=== PATIENT | female | born 1955 | race Hispanic/Latino ===

== ENCOUNTER 2018-09-16 18:35 | Emergency (ER) | payer OTHER ==
[2018-09-16] MEDS ORDERED: ONDANSETRON 4 MG/2 ML VIAL ONE (19:10)
[2018-09-16] MEDS ORDERED: MORPHINE 4 MG/ML SYR ONE ×2 (19:10→23:20)
[2018-09-16] MEDS ORDERED: NA CHLORIDE 0.9% 1,000 ML ONE (20:21)
--- NOTE | 2018-09-16 20:22 | RAD REPORT ---
EXAM DESCRIPTION: RAD - Pelvis - 09/16/2018 7:51 pm CLINICAL HISTORY: Acute onset right hip pain, history of left femoral neck fracture repair unknown d ate COMPARISON: None. TECHNIQUE: AP imaging of the pelvis was obtained. FINDINGS: No fracture of the bony pelvis. No pathologic bony pelvic process seen. Pubic symphysis un remarkable. Minimal SI joint degenerative changes. Hardware is in place from prior femoral neck fracture repair. Faint lucency is present along the supe rior margin of the left femoral neck. Baseline for the patient is unknown. Acute fracture is unlikely . Transverse fracture through the mid right femoral neck is present. The medial inferior margin of the fracture is at the superior boundary of the lesser trochanter. No extension into the intertrochanteri c portion of the femur seen. No pathologic component. IMPRESSION: Right femoral neck fracture as detailed.
--- NOTE | 2018-09-16 20:23 | RAD REPORT ---
EXAM DESCRIPTION: RAD - Femur Right - 09/16/2018 7:51 pm CLINICAL HISTORY: Acute onset right hip and leg pain COMPARISON: No remote imaging FINDINGS: Fracture is present in the midportion of the right femoral neck. Medial inferior margin of the fracture is at the superior margin of the lesser trochanter. No extension into the intertrochant [place] portion of the femur. Femoral head maintains smooth rounded contour and is normally positioned i n the acetabulum. Remainder the femur shows no acute finding. No joint effusion at the knee. No air o r foreign body in the soft tissues. IMPRESSION: Right femoral neck fracture as detailed. Remainder the femur without acute finding.
[2018-09-16 21:07] LABS: Urine Blood TRACE (NEG); Urine Glucose NEGATIVE (NEG); Urine Protein TRACE (NEG)
[2018-09-16 21:27] LABS: Absolute Lymphocytes (CBC) 0.9 K/uL (0.7-4.9); Absolute Monocytes 0.6 K/uL (0.1-1.3); Absolute Neutrophil 15.4 K/uL (1.8-8.0); Basophils % 0.4 % (0-1.3); Hematocrit 35.4 % (36.0-45.0); Lymphocytes % 5.3 % (15.3-44.8); MCH 31.3 pg (27.0-35.0); MCV 92.3 fL (80-100); MPV 7.8 fL (7.6-11.3); Monocytes % 3.7 % (3.3-12.3); RBC Red Blood Cell Count 3.83 M/uL (3.86-4.86)
[2018-09-16 21:34] LABS: Protime INR 0.95
[2018-09-16 21:43] LABS: Potassium 4.5 mmol/L (3.5-5.1)
--- NOTE | 2018-09-16 22:06 | ER ---
Nurse's Notes [facility] Name: Juhi Aguilar Age: 63 yrs Sex: Female : 1955 Arrival Date: 09/16/2018 Time: 18:36 Bed 17 Private MD: Diagnosis: Right Femoral Neck Fracture Presentation: 09/16 18:38 Risk Assessment: Do you want to hurt yourself or someone else? Patient reports no rv desire to harm self or others. Initial Sepsis Screen: Does the patient meet any 2 criteria? No. Patient's initial sepsis screen is negative. Does the patient have a suspected source of infection? No. Patient's initial sepsis screen is negative. Care prior to arrival: None. 18:51 Presenting complaint: EMS states: Was attempting to get in bed and experienced severe R ph hip pain that radiates to knee, denies recent fall or injury, reports hx of R hip pain. Transition of care: patient was not received from another setting of care. Onset of symptoms was September 16, 2018. 18:51 Method Of Arrival: EMS: [facility] 18:51 Acuity: LUIGI 3 ph Historical: - Allergies: 18:53 sirolimus; ph - Home Meds: 19:10 bisacodyl 5 mg Oral TbEC 1 tab once daily [Active]; calcitriol 0.25 mcg oral cap 1 cap lp1 once daily [Active]; cyclobenzaprine 10 mg Oral tab 1 tab 3 times per day [Active]; cyclosporine ophthalmic ophthalmic 1 drop 2 times per day [Active]; cyclosporine 25 mg Oral cap 3 cap twice a day [Active]; enoxaparin 40 mg/0.4 mL subcutaneous syrg 0.4 mL once daily [Active]; famotidine 20 mg Oral tab 1 tab 2 times per day [Active]; furosemide 40 mg Oral tab 1 tab 2 times per day [Active]; glipizide 5 mg Oral tab 1 tab once daily [Active]; hydrocodone-acetaminophen 5-325 mg Oral tab 2 tabs every 8 hours [Active]; meloxicam 7.5 mg oral tab 1 tab once daily [Active]; metoprolol succinate 50 mg oral Tb24 twice a day [Active]; mycophenolate sodium 360 mg oral TbEC 2 tabs 2 times per day [Active]; omeprazole 20 mg Oral cpDR 1 cap once daily [Active]; pravastatin 10 mg oral tab nightly [Active]; spironolactone 25 mg Oral tab 1 tab once daily [Active]; sulindac 150 mg Oral tab 1 tab 2 times per day [Active]; tramadol 50 mg Oral tab 1 tab every 6 hours [Active]; - PMHx: 19:10 Osteoarthritis; hyperparathyroidism; GERD; Hyperlipidemia; Hypertension; Cataracts; lp1 Myalgia; - PSHx: 19:10 Renal transplant; Femoral neck fx; lp1 - Immunization history:: Adult Immunizations unknown. - Social history:: Smoking status: Patient/guardian denies using tobacco. - Ebola Screening: : Patient negative for fever greater than or equal to 101.5 degrees Fahrenheit, and additional compatible Ebola Virus Disease symptoms Patient denies exposure to infectious person Patient denies travel to an Ebola-affected area in the 21 days before illness onset. Screenin:38 Abuse screen: Denies threats or abuse. Denies injuries from another. Nutritional rv screening: No deficits noted. Tuberculosis screening: No symptoms or risk factors identified. Fall Risk None identified. Assessment: 18:37 General: Appears in no apparent distress. uncomfortable, Behavior is calm, cooperative. rv Pain: Complains of pain in HIP. Neuro: Level of Consciousness is awake, alert, obeys commands, Oriented to person, place, time, situation. Cardiovascular: Capillary refill < 3 seconds. Respiratory: Airway is patent. GI: No signs and/or symptoms were reported involving the gastrointestinal system. : No signs and/or symptoms were reported regarding the genitourinary system. EENT: No signs and/or symptoms were reported regarding the EENT system. Derm: Skin is intact. 19:15 General: Appears in no apparent distress. uncomfortable, Behavior is calm, cooperative. rr5 Pain: Complains of pain in hip radiating to right hip Pain radiates to right leg Pain currently is 6 out of 10 on a pain scale. Quality of pain is described as aching. Neuro: Level of Consciousness is Oriented to person, place, time, situation. Cardiovascular: Capillary refill < 3 seconds Patient's skin is warm and dry. Respiratory: Airway is patent. GI: No signs and/or symptoms were reported involving the gastrointestinal system. : No signs and/or symptoms were reported regarding the genitourinary system. EENT: No signs and/or symptoms were reported regarding the EENT system. Derm: Skin is intact. Musculoskeletal: Capillary refill < 3 seconds, Range of motion: limited in right hip. 19:20 Reassessment: patient taken to radiology. rr5 19:55 Reassessment: came back from radiology department. rr5 21:00 Reassessment: Patient appears in no apparent distress at this time. aj1 22:41 Reassessment: call made to [facility] and accepted the case by staff nurse ashley . rr5 23:33 Reassessment: transferred to other facility via EMS, handover given. lp1 Vital Signs: 18:36 BP 169 / 100; Pulse 80; Resp 17; Temp 98.8; Pulse Ox 99% on R/A; Weight 63.5 kg (R); rv 19:15 BP 187 / 92; Pulse 87; Resp 17; Temp 98.6; Pulse Ox 98% on R/A; rr5 22:20 BP 158 / 95; Pulse 87; Resp 17; Pulse Ox 99% on R/A; rr5 23:15 BP 152 / 89; Pulse 89; Resp 17; Pulse Ox 98% ; lp1 ED Course: 18:36 Patient arrived in ED. rv 18:38 Arm band placed on right wrist. rv 18:39 Patient has correct armband on for positive identification. Bed in low position. Call rv light in reach. Side rails up X2. Adult w/ patient. Pulse ox on. NIBP on. 18:52 Triage completed. ph 18:54 Wali Caba MD is Attending Physician. salomón 18:54 [facility]su [facility]. cp 19:01 Report given to ZORAIDA/SATURNINO SCHROEDER. rv 19:10 Maintain EMS IV. Dressing intact. Site clean \T\ dry. Gauge \T\ site: 18 right antecubital. rr 5 IV Flushed right with 5 ml normal saline. 19:44 Wayne Salas, RN is Primary Nurse. rr5 19:52 XRAY Pelvis In Process Unspecified. EDMS 19:52 Femur Right XRAY In Process Unspecified. EDMS 20:55 Mcneill cath inserted, using sterile technique, 16 Fr., by me, balloon inflated, urine rr5 specimen collected. returned clear yellow urine. Patient tolerated well. 21:33 Ptt, Activated Sent. ds4 21:33 PT-INR Sent. ds4 21:33 BMP Sent. ds4 21:33 CBC Smear Scan Sent. ds4 21:34 EKG done, by ED staff, reviewed by Wali Caba MD. ds4 23:30 No provider procedures requiring assistance completed. rr5 23:30 Patient transferred, IV remains in place. intact. rr5 Administered Medications: 19:55 Drug: Zofran 4 mg Route: IVP; Site: right antecubital; rr5 23:30 Follow up: Response: No adverse reaction rr5 20:00 Drug: morphine 4 mg Route: IVP; Site: right antecubital; rr5 23:30 Follow up: Response: No adverse reaction rr5 21:00 Drug: NS 0.9% 1000 ml Route: IV; Rate: 75 ml/hr; Site: right antecubital; rr5 22:47 Follow up: IV Status: Infusion continued upon transfer; IV Intake: 200ml aj1 22:45 Not Given (bp 158/95 -Page PA informed): hydrALAZINE 5 mg IV at calculated rate once aj1 23:19 Drug: morphine 4 mg Route: IVP; Site: right antecubital; lp1 23:31 Follow up: Response: No adverse reaction; Other; given upon transfer lp1 Intake: 22:47 IV: 200ml; Total: 200ml. aj1 Outcome: 22:05 ER care complete, transfer ordered by . toni 23:29 Patient left the ED. jb4 23:34 Transferred by ground EMS to [facility], Transfer form lp1 completed. 23:34 Condition: stable 23:34 Discharge instructions given to patient, family, Instructed on discharge instructions, follow up and referral plans. the need for transfer, Demonstrated understanding of instructions, follow-up care. Signatures: Dispatcher [employer] EDMS Hailey Izaguirre RN RN aj1 Wali Caba MD MD cha Pena, Laura RN RN lp1 Gadiel Gonzalez ds4 Kelli Thomas RN RN ph Page, Corey, PA PA cp Bryson, James, RN RN jb4 Junior Lorenzo RN RN rv Roque, Raymond RN RN rr5 Corrections: (The following items were deleted from the chart) 20:07 19:57 Reassessment: patient taken to radiology rr5 rr5 20:07 20:05 Reassessment: came back from radiology department. rr5 rr5
--- NOTE | 2018-09-16 22:06 | EDPHYS ---
Physician Documentation [facility] Name: Juhi Aguilar Age: 63 yrs Sex: Female : 1955 Arrival Date: 09/16/2018 Time: 18:36 Bed 17 Private MD: ED Physician Wali Caba HPI: 09/16 19:18 This 63 yrs old Female presents to ER via EMS with complaints of right hip cp pain. 19:18 The patient or guardian reports pain. sustained from lost balance without falling while cp using walker There is no obvious deformity, The patient is able to ambulate with assistance. Patient is not able to bear weight. The patient's discomfort radiates to the down leg to knee. The complaints affect the right hip. Onset: The symptoms/episode began/occurred today. Associated signs and symptoms: Pertinent negatives: abdominal pain, chest pain, diarrhea, dysuria, weakness, numbness. Historical: - Allergies: 18:53 sirolimus; ph - Home Meds: 19:10 bisacodyl 5 mg Oral TbEC 1 tab once daily [Active]; calcitriol 0.25 mcg oral cap 1 cap lp1 once daily [Active]; cyclobenzaprine 10 mg Oral tab 1 tab 3 times per day [Active]; cyclosporine ophthalmic ophthalmic 1 drop 2 times per day [Active]; cyclosporine 25 mg Oral cap 3 cap twice a day [Active]; enoxaparin 40 mg/0.4 mL subcutaneous syrg 0.4 mL once daily [Active]; famotidine 20 mg Oral tab 1 tab 2 times per day [Active]; furosemide 40 mg Oral tab 1 tab 2 times per day [Active]; glipizide 5 mg Oral tab 1 tab once daily [Active]; hydrocodone-acetaminophen 5-325 mg Oral tab 2 tabs every 8 hours [Active]; meloxicam 7.5 mg oral tab 1 tab once daily [Active]; metoprolol succinate 50 mg oral Tb24 twice a day [Active]; mycophenolate sodium 360 mg oral TbEC 2 tabs 2 times per day [Active]; omeprazole 20 mg Oral cpDR 1 cap once daily [Active]; pravastatin 10 mg oral tab nightly [Active]; spironolactone 25 mg Oral tab 1 tab once daily [Active]; sulindac 150 mg Oral tab 1 tab 2 times per day [Active]; tramadol 50 mg Oral tab 1 tab every 6 hours [Active]; - PMHx: 19:10 Osteoarthritis; hyperparathyroidism; GERD; Hyperlipidemia; Hypertension; Cataracts; lp1 Myalgia; - PSHx: 19:10 Renal transplant; Femoral neck fx; lp1 - Immunization history:: Adult Immunizations unknown. - Social history:: Smoking status: Patient/guardian denies using tobacco. - Ebola Screening: : Patient negative for fever greater than or equal to 101.5 degrees Fahrenheit, and additional compatible Ebola Virus Disease symptoms Patient denies exposure to infectious person Patient denies travel to an Ebola-affected area in the 21 days before illness onset. ROS: 19:25 Constitutional: Negative for body aches, chills, fever, poor PO intake. cp 19:25 Eyes: Negative for injury, pain, redness, and discharge. cp 19:25 ENT: Negative for drainage from ear(s), ear pain, sore throat, difficulty swallowing, difficulty handling secretions. 19:25 Cardiovascular: Negative for chest pain, edema, palpitations. 19:25 Respiratory: Negative for cough, shortness of breath, wheezing. 19:25 Abdomen/GI: Negative for abdominal pain, vomiting, diarrhea, constipation, black/tarry stool, rectal bleeding. 19:25 Back: Positive for radiated pain, of the right lower back. 19:25 : Negative for urinary symptoms. 19:25 MS/extremity: Positive for decreased range of motion, pain, tenderness, of the right hip. 19:25 Neuro: Negative for altered mental status, dizziness, loss of consciousness, syncope, near syncope, weakness. 19:25 All other systems are negative. Exam: 19:25 Head/Face: Normocephalic, atraumatic. cp 19:25 Constitutional: The patient appears in no acute distress, alert, awake, non-diaphoretic, non-toxic, well developed, well nourished, uncomfortable. 19:25 Eyes: Periorbital structures: appear normal, Conjunctiva: normal, no exudate, no injection, Sclera: no appreciated abnormality, Lids and lashes: appear normal, bilaterally. 19:25 ENT: External ear(s): are unremarkable, Ear canal(s): are normal, clear, TM's: are normal, no evidence of bulging, no erythema, Nose: is normal, Mouth: Lips: moist, Oral mucosa: moist, Posterior pharynx: is normal, airway is patent, no erythema, no exudate. 19:25 Neck: C-spine: vertebral tenderness, is not appreciated, crepitus, is not appreciated, ROM/movement: is normal, is supple, without pain, no range of motions limitations, no meningismus, no nuchal rigidity. 19:25 Chest/axilla: Inspection: normal, Palpation: is normal, no crepitus, no tenderness. 19:25 Cardiovascular: Rate: normal, Rhythm: regular, Pulses: Pulses are 2+ in right radial artery, right dorsalis pedis artery, left radial artery and left dorsalis pedis artery. Edema: is not appreciated, JVD: is not appreciated. 19:25 Respiratory: the patient does not display signs of respiratory distress, Respirations: normal, no use of accessory muscles, no retractions, no splinting, no tachypnea, labored breathing, is not present, Breath sounds: are clear throughout, no decreased breath sounds, no stridor, no wheezing. 19:25 Abdomen/GI: Inspection: obese Bowel sounds: active, all quadrants, Palpation: abdomen is soft and non-tender, in all quadrants, rebound tenderness, is not appreciated, involuntary guarding, is not appreciated. 19:25 Back: pain, that is moderate, of the right low back, vertebral tenderness, is not appreciated. 19:25 Musculoskeletal/extremity: Joints: All joints are normal except the right hip displays limited range of motion, pain at rest, painful range of motion, tenderness. 19:25 Neuro: Orientation: to person, place \T\ time. Mentation: lucid, able to follow commands, Cerebellar function: is grossly normal, Motor: moves all fours, strength is normal, Sensation: no obvious gross deficits. Vital Signs: 18:36 BP 169 / 100; Pulse 80; Resp 17; Temp 98.8; Pulse Ox 99% on R/A; Weight 63.5 kg (R); rv 19:15 BP 187 / 92; Pulse 87; Resp 17; Temp 98.6; Pulse Ox 98% on R/A; rr5 22:20 BP 158 / 95; Pulse 87; Resp 17; Pulse Ox 99% on R/A; rr5 23:15 BP 152 / 89; Pulse 89; Resp 17; Pulse Ox 98% ; lp1 MDM: 18:54 Patient medically screened. salomón 19:00 Differential diagnosis: hip fracture, intertrochanteric fracture, femoral neck cp fracture, femoral shaft fracture. 20:13 Data reviewed: vital signs, nurses notes, radiologic studies, plain films. Test cp interpretation: by ED physician or midlevel provider: plain radiologic studies. 09/16 20:04 Order name: CBC with Diff; Complete Time: 22:42 cp 09/16 22:04 Interpretation: Normal except: WBC 17.0; RBC 3.83; HCT 35.4; CAIN% 90.6; LYM% 5.3; NEUT cp A 15.4. 09/16 20:04 Order name: BMP; Complete Time: 22:03 cp 09/16 22:03 Interpretation: Normal except: GLUC 127; BUN 49; CRE 1.60; GFR 33. cp 09/16 20:04 Order name: PT-INR; Complete Time: 22:03 cp 09/16 20:04 Order name: Ptt, Activated; Complete Time: 22:03 cp 09/16 21:03 Order name: Urine Dipstick--Ancillary (enter results); Complete Time: 21:26 mw2 09/16 22:42 Interpretation: Normal except: UBLD TRACE. cp 09/16 21:29 Order name: CBC Smear Scan; Complete Time: 22:42 EDMS 09/16 18:56 Order name: XRAY Pelvis; Complete Time: 20:24 cp 09/16 18:56 Order name: Femur Right XRAY; Complete Time: 20:24 cp 09/16 20:04 Order name: EKG; Complete Time: 20:04 cp 09/16 20:04 Order name: EKG - Nurse/Tech; Complete Time: 21:33 cp 09/16 20:04 Order name: Mcneill; Complete Time: 20:55 cp 09/16 20:04 Order name: Urine Dipstick-Ancillary (obtain specimen); Complete Time: 21:00 cp Administered Medications: 19:55 Drug: Zofran 4 mg Route: IVP; Site: right antecubital; rr5 23:30 Follow up: Response: No adverse reaction rr5 20:00 Drug: morphine 4 mg Route: IVP; Site: right antecubital; rr5 23:30 Follow up: Response: No adverse reaction rr5 21:00 Drug: NS 0.9% 1000 ml Route: IV; Rate: 75 ml/hr; Site: right antecubital; rr5 22:47 Follow up: IV Status: Infusion continued upon transfer; IV Intake: 200ml aj1 22:45 Not Given (bp 158/95 -Page PA informed): hydrALAZINE 5 mg IV at calculated rate once aj1 23:19 Drug: morphine 4 mg Route: IVP; Site: right antecubital; lp1 23:31 Follow up: Response: No adverse reaction; Other; given upon transfer lp1 Disposition: 09/17 05:51 Co-signature as Attending Physician, Wali Caba MD I agree with the assessment and salomón plan of care. Disposition: 09/16/18 22:05 Transfer ordered to [facility]. Diagnosis is Right Femoral Neck Fracture. - Reason for transfer: Higher level of care. - Accepting physician is DR Gilbert. - Condition is Stable. - Problem is new. - Symptoms have improved. Signatures: Dispatcher [employer] EDWali Sheriff MD MD cha Pena, Laura, RN RN lp1 Kelli Thomas RN RN Wali Hsu PA PA cp Manish Rader RN RN jb4 Junior Lorenzo RN RN Wayne Woodruff RN RN rr5 Hailey Izaguirre RN aj1 Corrections: (The following items were deleted from the chart) 09/16 23:29 22:05 09/16/2018 22:05 Transfer ordered to [facility]. Diagnosis is Right Femoral jb4 Neck Fracture. Reason for transfer: Higher level of care. Accepting physician is DR Gilbert. Condition is Stable. Problem is new. Symptoms have improved. cp
[2018-09-16 22:16] LABS: Blood Morphology Comment NOT SEEN (NOT SEEN); Platelet Estimate ADEQ; Urine White Blood Cell Casts OK
--- NOTE | 2018-09-17 07:28 | EKG ---
Test Date: 2018-09-16 Test Time: 21:06:36 [employer] Manager: PAUL MEASUREMENT RESULTS: Intervals: Rate: 93 TX: 176 QRSD: 90 QT: 348 QTc: 432 [place]: P: 26 TX: 176 QRS: -12 T: -5 INTERPRETIVE STATEMENTS: Normal sinus rhythm Minimal voltage criteria for LVH, may be normal variant Nonspecific ST abnormality Abnormal ECG Compared to ECG 11/19/2006 11:16:28 Left ventricular hypertrophy now present ST (T wave) deviation now present Electronically Signed On 09-17-18 07:27:32 CDT by Tariq Nuñez
== END 2018-09-16 23:29 | disposition short-term general hospital (02) ==
LOC: ER 18:35
DX: S72.001A Fracture of unspecified part of neck of right femur, initial encounter for closed fracture (principal); W19.XXXA Unspecified fall, initial encounter; Y93.89 Activity, other specified; Y92.9 Unspecified place or not applicable; Z88.8 Allergy status to other drugs, medicaments and biological substances; Z94.0 Kidney transplant status; I10 Essential (primary) hypertension; E78.5 Hyperlipidemia, unspecified
CPT/HCPCS: 36415; 51702; 72170; 80048; 81003; 85025; 85610; 85730; 93005; 96361; 96374; 96375; 99285; J2405; J7030

== ENCOUNTER 2019-01-04 08:19 | Emergency (ER) | payer OTHER ==
--- OUTSIDE RECORDS SUMMARY | 2019-01-04 08:32 | XMS REPORT ---
:1955 [facility] Address [address] [place] [address] [place] [id number] Care Team Providers Name Role Phone Unavailable Unavailable Unavailable Problems This patient has no known problems. Allergies, Adverse Reactions, Alerts This patient has no known allergies or adverse reactions. Medications This patient has no known medications.
[2019-01-04] MEDS ORDERED: ACETAMINOPHEN 325 MG TABLET ONE (08:49)
[2019-01-04] MEDS ORDERED: NA CHLORIDE 0.9% 500 ML ONE ×2 (08:49→10:18)
--- NOTE | 2019-01-04 09:08 | RAD REPORT ---
EXAM DESCRIPTION: RAD - Chest Single View - 01/04/2019 8:50 am CLINICAL HISTORY: FEVER Chest pain. COMPARISON: CHEST PA AND LAT 2 VIEW dated 09/13/2008 FINDINGS: Portable technique limits examination quality. The lungs are grossly clear. The heart is normal in size. No displaced fractures. IMPRESSION: No acute intrathoracic process suspected.
[2019-01-04 09:15] LABS: Absolute Lymphocytes (CBC) 0.7 K/uL (0.7-4.9); Absolute Neutrophil 11.8 K/uL (1.8-8.0); Basophils % 0.4 % (0-1.3); Hematocrit 39.8 % (36.0-45.0); Lymphocytes % 5.3 % (15.3-44.8); MPV 8.2 fL (7.6-11.3); Monocytes % 7.3 % (3.3-12.3); RBC Red Blood Cell Count 4.53 M/uL (3.86-4.86)
[2019-01-04 09:31] LABS: Urine Bacteria LOADED /HPF (<20)
[2019-01-04 09:32] LABS: Urine Culture Reflex Order NOT NEEDED; Urine Mucus 1+ /HPF (NONE SEEN)
[2019-01-04 09:38] LABS: Potassium 3.8 mmol/L (3.5-5.1)
[2019-01-04 10:06] LABS: Blood Morphology Comment NOT SEEN (NOT SEEN); Platelet Estimate ADEQ; Urine White Blood Cell Casts OK
--- NOTE | 2019-01-04 10:11 | EDPHYS ---
Physician Documentation [facility] Name: Juhi Aguilar Age: 63 yrs Sex: Female : 1955 Arrival Date: 01/04/2019 Time: 08:22 Bed 5 Private MD: ED Physician Alexx Bowens HPI: 01/04 08:34 This 63 yrs old Female presents to ER via Wheelchair with complaints of rn Headache, Weakness, High Blood Pressure. 08:43 The patient reports fever, not measured (subjective). Onset: The symptoms/episode rn began/occurred 2 day(s) ago. Modifying factors: there are no obvious modifying factors. Associated signs and symptoms: Pertinent positives: chills, sore throat. Severity of symptoms: At their worst the symptoms were mild in the emergency department the symptoms are unchanged. The patient has not experienced similar symptoms in the past. Reports 2-3 days of subjective fever, chills, muscle aches, fatigue. . Historical: - Allergies: 08:26 sirolimus; hb 09:30 Codeine; aa5 09:30 Adhesives; aa5 - Home Meds: 09:30 bisacodyl 5 mg Oral TbEC 1 tab once daily [Active]; calcitriol 0.25 mcg Oral cap 1 cap aa5 once daily [Active]; cyclosporine 25 mg Oral cap 3 cap twice a day [Active]; clonazepam 0.5 mg oral tab 2 times per day [Active]; furosemide 40 mg oral tab 2 times per day [Active]; glipizide 5 mg Oral tab 1 tab once daily [Active]; hydrocodone-acetaminophen 5-325 mg Oral tab every 6 hours [Active]; meloxicam 7.5 mg Oral tab 1 tab once daily [Active]; metoprolol succinate 50 mg Oral Tb24 twice a day [Active]; mycophenolate sodium 360 mg Oral TbEC 2 tabs 2 times per day [Active]; omeprazole 20 mg Oral cpDR 1 cap once daily [Active]; ondansetron HCl 4 mg Oral tab every 8 hours [Active]; pnv comb [id number] Acid [Active]; pravastatin 10 mg oral tab once daily [Active]; prednisone 5 mg Oral tab once daily [Active]; spironolactone 25 mg Oral tab once daily [Active]; Prolia 60 mg/mL subcutaneous syrg every 6 mo [Active]; - PMHx: 09:30 Cataracts; GERD; Hyperlipidemia; hyperparathyroidism; Hypertension; Myalgia; aa5 osteoarthritis; - PSHx: 09:30 Timoteo hips; Right renal transplant; aa5 - Immunization history:: Adult Immunizations up to date. - Social history:: Smoking status: Patient/guardian denies using tobacco. - Ebola Screening: : No symptoms or risks identified at this time. - Family history:: not pertinent. - Hospitalizations: : No recent hospitalization is reported. 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 Head/Face: Normocephalic, atraumatic. Eyes: Pupils equal round and reactive to light, extra-ocular motions intact. Lids and lashes normal. Conjunctiva and sclera are non-icteric and not injected. Cornea within normal limits. Periorbital areas with no swelling, redness, or edema. ENT: dry MM, no stridor Neck: Trachea midline, no thyromegaly or masses palpated, and no cervical lymphadenopathy. Supple, full range of motion without nuchal rigidity, or vertebral point tenderness. No Meningismus. Cardiovascular: tachycardic, regular, no murmur Respiratory: Lungs have equal breath sounds bilaterally, clear to auscultation. No increased work of breathing, no retractions or nasal flaring. Abdomen/GI: soft, non-tender MS/ Extremity: Pulses equal, no cyanosis. Neurovascular intact. Full, normal range of motion. Equal circumference. Neuro: Awake and alert, GCS 15, oriented to person, place, time, and situation. Cranial nerves II-XII grossly intact. Motor strength 5/5 in all extremities. Sensory grossly intact. Vital Signs: 08:25 BP 154 / 94; Pulse 111; Resp 16; Temp 101.8(O); Pulse Ox 95% on R/A; Pain 7/10; hb 10:00 BP 142 / 90; Pulse 90; Resp 20 S; Temp 99.4(O); Pulse Ox 96% on R/A; aa5 10:50 BP 146 / 84; Pulse 80; Resp 16 S; Temp 98.4(O); Pulse Ox 97% on R/A; Pain 4/10; aa5 MDM: 08:27 Patient medically screened. rn 10:06 Differential diagnosis: viral Infection, bacterial infection, URI, pneumonia UTI. Data rn reviewed: vital signs, nurses notes, lab test result(s), radiologic studies, plain films, and as a result, I will discharge patient. Counseling: I had a detailed discussion with the patient and/or guardian regarding: the historical points, exam findings, and any diagnostic results supporting the discharge/admit diagnosis, lab results, radiology results, the need for outpatient follow up, to return to the emergency department if symptoms worsen or persist or if there are any questions or concerns that arise at home. Response to treatment: the patient's symptoms have markedly improved after treatment, and as a result, I will discharge patient. Special discussion: I discussed with the patient/guardian in detail that at this point there is no indication for admission to the hospital. It is understood, however, that if the symptoms persist or worsen the patient needs to return immediately for re-evaluation. ED course: Pt feels better with fluids, +UTI, neg flu, clear CXR, improved vitals with fluids, fever responded to meds, will dc home with abx for UTI. Return precautions given and understood. . 01/04 08:33 Order name: CBC with Diff rn 01/04 08:33 Order name: Basic Metabolic Panel; Complete Time: 10:03 rn 01/04 08:33 Order name: Procalcitonin; Complete Time: 10:03 rn 01/04 08:33 Order name: Blood Culture Adult (2) rn 01/04 08:33 Order name: Urine Microscopic Only; Complete Time: 10:03 rn 01/04 08:33 Order name: Urine Culture rn 01/04 08:33 Order name: XRAY Chest (1 view); Complete Time: 09:27 rn 01/04 08:33 Order name: Flu; Complete Time: 10:03 rn 01/04 08:33 Order name: Strep; Complete Time: 09:27 rn 01/04 09:20 Order name: Urine Dipstick--Ancillary (enter results) 01/04 09:23 Order name: CBC Smear Scan [facility] 01/04 09:26 Order name: Throat Culture [facility] 01/04 08:33 Order name: IV Start; Complete Time: 09:08 rn 01/04 08:33 Order name: Urine Dipstick-Ancillary (obtain specimen); Complete Time: 09:27 rn Administered Medications: 08:44 Drug: Tylenol 650 mg Route: PO; aa5 10:06 Follow up: Response: No adverse reaction; Temperature is decreased aa5 09:20 Drug: NS 0.9% 500 ml Route: IV; Rate: bolus; Site: right antecubital; aa5 10:08 Follow up: IV Status: Completed infusion aa5 10:08 Drug: Rocephin - (cefTRIAXone) 1 grams Route: IVPB; Infused Over: 30 mins; Site: right aa5 antecubital; 10:20 Follow up: Response: No adverse reaction aa5 10:08 Drug: NS 0.9% 500 ml Route: IV; Rate: bolus; Site: right antecubital; aa5 10:50 Follow up: IV Status: Completed infusion aa5 Disposition: 01/04/19 10:07 Discharged to Home. Impression: Fever, unspecified, Urinary tract infection, site not specified, Dehydration. - Condition is Stable. - Discharge Instructions: Dehydration, Adult, Urinary Tract Infection, Adult. - Prescriptions for cefpodoxime 100 mg Oral Tablet - take 2 tablet by ORAL route every 12 hours for 10 days take with food; 40 tablet. - Medication Reconciliation Form, Thank You Letter, Antibiotic Education, Prescription Opioid Use form. - Follow up: Private Physician; When: As needed; Reason: Recheck today's complaints, Re-evaluation by your physician. - Problem is new. - Symptoms have improved. Signatures: Dispatcher [employer] EDAlexx Cisneros MD MD rn Calderon, Audri, RN RN aa5 Jeana Espinoza RN RN Corrections: (The following items were deleted from the chart) 10:07 10:07 01/04/2019 10:07 Discharged to Home. Impression: Fever, unspecified; Urinary rn tract infection, site not specified. Condition is Stable. Forms are Medication Reconciliation Form, Thank You Letter, Antibiotic Education, Prescription Opioid Use. Follow up: Private Physician; When: As needed; Reason: Recheck today's complaints, Re-evaluation by your physician. Problem is new. Symptoms have improved. rn 10:59 10:07 01/04/2019 10:07 Discharged to Home. Impression: Fever, unspecified; Urinary aa5 tract infection, site not specified; Dehydration. Condition is Stable. Forms are Medication Reconciliation Form, Thank You Letter, Antibiotic Education, Prescription Opioid Use. Follow up: Private Physician; When: As needed; Reason: Recheck today's complaints, Re-evaluation by your physician. Problem is new. Symptoms have improved. rn
--- NOTE | 2019-01-04 10:11 | ER ---
Nurse's Notes [facility] Name: Juhi Aguilar Age: 63 yrs Sex: Female : 1955 Arrival Date: 01/04/2019 Time: 08:22 Bed 5 Private MD: Diagnosis: Fever, unspecified;Urinary tract infection, site not specified;Dehydration Presentation: 01/04 08:24 Presenting complaint: Headache, malaise, fatigue, and fever x 2-3 days. Transition of hb care: patient was not received from another setting of care. Onset of symptoms was January 02, 2019. Risk Assessment: Do you want to hurt yourself or someone else? Patient reports no desire to harm self or others. Care prior to arrival: None. 08:24 Method Of Arrival: Wheelchair hb 08:24 Acuity: LUIGI 3 hb 08:30 Initial Sepsis Screen: Does the patient meet any 2 criteria? Temp <36.0*C (96.8*F)) or aa5 > 38.3*C (100.9*F). HR > 90 bpm. Yes Does the patient have a suspected source of infection? No. Patient's initial sepsis screen is negative. Historical: - Allergies: 08:26 sirolimus; hb 09:30 Codeine; aa5 09:30 Adhesives; aa5 - Home Meds: 09:30 bisacodyl 5 mg Oral TbEC 1 tab once daily [Active]; calcitriol 0.25 mcg Oral cap 1 cap aa5 once daily [Active]; cyclosporine 25 mg Oral cap 3 cap twice a day [Active]; clonazepam 0.5 mg oral tab 2 times per day [Active]; furosemide 40 mg oral tab 2 times per day [Active]; glipizide 5 mg Oral tab 1 tab once daily [Active]; hydrocodone-acetaminophen 5-325 mg Oral tab every 6 hours [Active]; meloxicam 7.5 mg Oral tab 1 tab once daily [Active]; metoprolol succinate 50 mg Oral Tb24 twice a day [Active]; mycophenolate sodium 360 mg Oral TbEC 2 tabs 2 times per day [Active]; omeprazole 20 mg Oral cpDR 1 cap once daily [Active]; ondansetron HCl 4 mg Oral tab every 8 hours [Active]; pnv comb [id number] Acid [Active]; pravastatin 10 mg oral tab once daily [Active]; prednisone 5 mg Oral tab once daily [Active]; spironolactone 25 mg Oral tab once daily [Active]; Prolia 60 mg/mL subcutaneous syrg every 6 mo [Active]; - PMHx: 09:30 Cataracts; GERD; Hyperlipidemia; hyperparathyroidism; Hypertension; Myalgia; aa5 osteoarthritis; - PSHx: 09:30 Timoteo hips; Right renal transplant; aa5 - Immunization history:: Adult Immunizations up to date. - Social history:: Smoking status: Patient/guardian denies using tobacco. - Ebola Screening: : No symptoms or risks identified at this time. - Family history:: not pertinent. - Hospitalizations: : No recent hospitalization is reported. Screenin:30 Abuse screen: Denies threats or abuse. Nutritional screening: No deficits noted. aa5 Tuberculosis screening: No symptoms or risk factors identified. 08:53 Fall Risk IV access (20 points). aa5 Assessment: 08:30 General: Appears uncomfortable, Behavior is calm, cooperative. Pain: Complains of pain aa5 in whole head Pain currently is 8 out of 10 on a pain scale. Quality of pain is described as aching, Pain began 2-3 days ago. Is continuous. Neuro: Level of Consciousness is awake, alert, obeys commands, Oriented to person, place, time, situation, Windows Laptop Technician are weak bilaterally Moves all extremities. Weakness Speech is normal, Facial symmetry appears normal, Pupils are PERRLA, Reports headache. Cardiovascular: Heart tones S1 S2 present Rhythm is regular. Respiratory: Airway is patent Respiratory effort is even, unlabored, Respiratory pattern is regular, symmetrical, Breath sounds are clear bilaterally. Denies cough, shortness of breath. GI: Abdomen is round non-distended, Bowel sounds present X 4 quads. Abd is soft and non tender X 4 quads. Reports 2 vomiting episodes this morning. Patient currently denies diarrhea. : No signs and/or symptoms were reported regarding the genitourinary system. EENT: No signs and/or symptoms were reported regarding the EENT system. Derm: Skin is dry, Skin is normal, Skin temperature is hot. Musculoskeletal: Range of motion: intact in all extremities. 09:12 Reassessment: Pt assisted to restroom via wheelchair from 0900 and helped back in bed aa5 at 0912. . 10:00 Reassessment: Patient and/or family updated on plan of care and expected duration. Pain aa5 level reassessed. Patient is alert, oriented x 3, equal unlabored respirations, skin warm/dry/pink. Pt sitting up in bed awaiting complete results. . 10:50 Reassessment: Patient is alert, oriented x 3, equal unlabored respirations, skin aa5 warm/dry/pink. Patient states feeling better. Vital Signs: 08:25 BP 154 / 94; Pulse 111; Resp 16; Temp 101.8(O); Pulse Ox 95% on R/A; Pain 7/10; hb 10:00 BP 142 / 90; Pulse 90; Resp 20 S; Temp 99.4(O); Pulse Ox 96% on R/A; aa5 10:50 BP 146 / 84; Pulse 80; Resp 16 S; Temp 98.4(O); Pulse Ox 97% on R/A; Pain 4/10; aa5 ED Course: 08:22 Patient arrived in ED. mr 08:25 Triage completed. hb 08:25 Arm band placed on right wrist. hb 08:27 Alexx Bowens MD is Attending Physician. rn 08:30 Patient has correct armband on for positive identification. Placed in gown. Bed in low aa5 position. Call light in reach. Side rails up X2. plisse machine operator on. Pulse ox on. NIBP on. 08:44 Candy Donnelly, RN is Primary Nurse. aa5 08:46 X-ray completed. Portable x-ray completed in exam room. Patient tolerated procedure jb2 well. 08:53 Inserted saline lock: in right antecubital area, using aseptic technique. Blood aa5 collected. 08:53 Initial lab(s) drawn, by me, sent to lab. First set of blood cultures drawn by me, Flu aa5 and/or RSV swab sent to lab. Strep swab sent to lab. 08:57 XRAY Chest (1 view) In Process Unspecified. EDMS 09:11 EKG done, by vein access technician. reviewed by Alexx Bowens MD. at1 09:15 Second set of blood cultures drawn. aa5 09:45 No provider procedures requiring assistance completed. aa5 10:55 IV discontinued, intact, bleeding controlled, No redness/swelling at site. Pressure aa5 dressing applied. Administered Medications: 08:44 Drug: Tylenol 650 mg Route: PO; aa5 10:06 Follow up: Response: No adverse reaction; Temperature is decreased aa 09:20 Drug: NS 0.9% 500 ml Route: IV; Rate: bolus; Site: right antecubital; aa5 10:08 Follow up: IV Status: Completed infusion aa5 10:08 Drug: Rocephin - (cefTRIAXone) 1 grams Route: IVPB; Infused Over: 30 mins; Site: right aa5 antecubital; 10:20 Follow up: Response: No adverse reaction aa5 10:08 Drug: NS 0.9% 500 ml Route: IV; Rate: bolus; Site: right antecubital; aa5 10:50 Follow up: IV Status: Completed infusion aa Outcome: 10:07 Discharge ordered by . rn 10:55 Discharged to home via wheelchair, with family. aa5 10:55 Condition: stable 10:55 Discharge instructions given to patient, family, Instructed on discharge instructions, follow up and referral plans. medication usage, Demonstrated understanding of instructions, follow-up care, medications, Prescriptions given X 1. 10:59 Patient left the ED. aa5 Addendum: 01/07/2019 07:44 Addendum: Culture Results: Positive urine culture. Called patient to check on her per a ria Caba MD, pt reports she is feeling better, no fever and no symptoms. Pt reports she will see her PCP on Thursday. No further actions per Dr. Caba, pt instructed to continue taking Cefpodoxime. Signatures: Dispatcher [employer] [facility] Jenna Gomez Jesse jb2 Alexx Bowens MD MD rn Calderon, Audri RN RN aa5 Kaylee Goetz, operations business partner EKG Tat1 Jeana Espinoza RN RN hb
[2019-01-04] MEDS ORDERED: CEFTRIAXONE/SWI 1gm 1 GM/10 ML SYR ONE (10:19)
[2019-01-04 14:14] LABS: Urine Blood 2+ (NEG); Urine Glucose NEGATIVE (NEG); Urine Protein 2+ (NEG); Urine Specific Gravity 1.015 (1.005-1.030)
--- NOTE | 2019-01-04 16:58 | EKG ---
Test Date: 2019-01-04 Test Time: 08:59:46 Health And Safety Manager: AGUSTÍN MEASUREMENT RESULTS: Intervals: Rate: 103 KS: 164 QRSD: 82 QT: 316 QTc: 413 [place]: P: 16 KS: 164 QRS: -19 T: -13 INTERPRETIVE STATEMENTS: Sinus tachycardia ST & T wave abnormality, consider inferior ischemia Abnormal ECG Compared to ECG 09/16/2018 21:06:36 Sinus rhythm no longer present ST (T wave) deviation still present Electronically Signed On 01-04-19 16:57:32 RUG DESIGNER by Telly Hurtado
== END 2019-01-04 10:59 | disposition home or self-care (01) ==
LOC: ER 08:19
DX: N39.0 Urinary tract infection, site not specified (principal); R50.9 Fever, unspecified; K21.9 Gastro-esophageal reflux disease without esophagitis; E78.5 Hyperlipidemia, unspecified; I10 Essential (primary) hypertension; E21.3 Hyperparathyroidism, unspecified; Z94.0 Kidney transplant status; Z88.5 Allergy status to narcotic agent; Z88.8 Allergy status to other drugs, medicaments and biological substances
CPT/HCPCS: 36415; 71045; 80048; 81003; 81015; 84145; 85025; 87040; 87070; 87077; 87081; 87086; 87088; 87186; 87804; 93005; 96361; 96374; 99285; J0696

== ENCOUNTER 2019-01-28 08:44 | Emergency (ER) | payer OTHER ==
--- OUTSIDE RECORDS SUMMARY | 2019-01-28 08:46 | XMS REPORT ---
:1955 [facility] Address [address] [place] [address] Dr. Mckeon [address] [place] [id number] Care Team Providers Name Role Phone Unavailable Unavailable Unavailable Problems This patient has no known problems. Allergies, Adverse Reactions, Alerts This patient has no known allergies or adverse reactions. Medications This patient has no known medications.
[2019-01-28 10:15] LABS: Absolute Lymphocytes (CBC) 0.4 K/uL (0.7-4.9); Absolute Monocytes 0.9 K/uL (0.1-1.3); Absolute Neutrophil 16.6 K/uL (1.8-8.0); Basophils % 0.3 % (0-1.3); Hematocrit 34.2 % (36.0-45.0); Lymphocytes % 2.5 % (15.3-44.8); MPV 8.5 fL (7.6-11.3); Monocytes % 4.9 % (3.3-12.3); RBC Red Blood Cell Count 3.97 M/uL (3.86-4.86)
[2019-01-28 10:24] LABS: Protime INR 1.02
[2019-01-28 10:39] LABS: ALT/SGPT 20 U/L (12-78); AST/SGOT 17 U/L (15-37); Albumin 2.7 g/dL (3.4-5.0); Alkaline Phosphatase 82 U/L (45-117); BUN Blood Urea Nitrogen 29 mg/dL (7-18); Bicarbonate 20 mmol/L (21-32); Bilirubin Direct 0.5 mg/dL (0-0.2); Bilirubin Total 0.9 mg/dL (0.2-1.0); CKMB Creatine Kinase MB < 1.0 ng/mL (0.3-3.6); Creatine Phosphokinase 90 U/L (26-192); Glucose Level 152 mg/dL (74-106); Lipase 167 U/L (73-393); Potassium 3.6 mmol/L (3.5-5.1); Protein, Total 6.6 g/dL (6.4-8.2); Sodium Level 122 mmol/L (136-145); Troponin (Emerg Dept Use Only) < 0.02 ng/mL (0.0-0.045)
[2019-01-28] MEDS ORDERED: ACETAMINOPHEN 325 MG TABLET ONE (10:39)
--- NOTE | 2019-01-28 10:50 | RAD REPORT ---
EXAM DESCRIPTION: RAD - Chest Single View - 01/28/2019 10:43 am CLINICAL HISTORY: general malaise, possible UTI Chest pain. COMPARISON: Chest Pa And Lat (2 Views) dated 01/25/2019; Chest Single View dated 01/04/2019; CHEST PA A ND LAT 2 VIEW dated 09/13/2008 FINDINGS: Portable technique limits examination quality. The lungs are emphysematous but grossly clear. The heart is mildly enlarged in size. No displaced fra ctures. IMPRESSION: No acute intrathoracic process suspected.
--- NOTE | 2019-01-28 10:54 | ER ---
Nurse's Notes [facility] Name: Juhi Aguilar Age: 63 yrs Sex: Female : 1955 Arrival Date: 01/28/2019 Time: 08:47 Bed 19 Private MD: Diagnosis: UTI, Hypocalcemia, leukocytosis Presentation: 01/28 08:55 Presenting complaint: Headache, nausea, nonproductive cough, malaise, and fever x 4-5 hb days, burning with urination and LLQ pain x 2 days. TMAX 101. Not tolerating fluids. Pt was seen in ED 3 days ago, flu +, on Tamiflu day 3. Transition of care: patient was not received from another setting of care. Onset of symptoms was January 24, 2019. Risk Assessment: Do you want to hurt yourself or someone else? Patient reports no desire to harm self or others. Care prior to arrival: None. 08:55 Method Of Arrival: Wheelchair hb 08:55 Acuity: LUIGI 3 hb Historical: - Allergies: 08:58 Adhesives; hb 08:58 Codeine; hb 08:58 sirolimus; hb - Home Meds: 12:56 bisacodyl 5 mg Oral TbEC 1 tab once daily [Active]; calcitriol 0.25 mcg Oral cap 1 cap em once daily [Active]; clonazepam 0.5 mg Oral tab 2 times per day [Active]; cyclobenzaprine 10 mg Oral tab 1 tab 3 times per day [Active]; cyclosporine ophthalmic 1 drop 2 times per day [Active]; cyclosporine 25 mg Oral cap 3 cap twice a day [Active]; diclofenac sodium 1 % Topical gel twice a day [Active]; enoxaparin 40 mg/0.4 mL subcutaneous syrg 0.4 mL once daily [Active]; famotidine 20 mg Oral tab 1 tab 2 times per day [Active]; furosemide 40 mg Oral tab 1 tab 2 times per day [Active]; furosemide 40 mg Oral tab 2 times per day [Active]; glipizide 5 mg Oral tab 1 tab once daily [Active]; hydrocodone-acetaminophen 5-325 mg Oral tab 2 tabs every 8 hours [Active]; hydrocodone-acetaminophen 5-325 mg Oral tab every 6 hours [Active]; meloxicam 7.5 mg Oral tab 1 tab once daily [Active]; metoprolol succinate 50 mg Oral Tb24 1.5 tabs twice a day [Active]; mycophenolate sodium 360 mg Oral TbEC 2 tabs 2 times per day [Active]; omeprazole 20 mg Oral cpDR 1 cap once daily [Active]; ondansetron HCl 4 mg Oral tab every 8 hours [Active]; pnv comb [id number] Acid [Active]; pravastatin 10 mg Oral tab nightly [Active]; pravastatin 10 mg Oral tab once daily [Active]; prednisone 5 mg Oral tab once daily [Active]; Prolia 60 mg/mL subcutaneous syrg every 6 mo [Active]; spironolactone 25 mg Oral tab 1 tab once daily [Active]; spironolactone 25 mg Oral tab once daily [Active]; sulindac 150 mg Oral tab 1 tab 2 times per day [Active]; tramadol 50 mg Oral tab 1 tab every 6 hours [Active]; - PMHx: 12:56 Cataracts; GERD; Hyperlipidemia; hyperparathyroidism; Hypertension; Myalgia; em osteoarthritis; - PSHx: 12:56 Timoteo hips; Right renal transplant; em - Immunization history:: Adult Immunizations up to date. - Social history:: Smoking status: Patient/guardian denies using tobacco. - Ebola Screening: : No symptoms or risks identified at this time. Screenin:20 Abuse screen: Denies threats or abuse. Nutritional screening: No deficits noted. em Tuberculosis screening: No symptoms or risk factors identified. Fall Risk None identified. Assessment: 09:20 General: Appears in no apparent distress. uncomfortable, Behavior is calm, cooperative, em Reports fever for 1-2 days, feeling ill for 1-2 days, fatigue for 1-2 days. Pain: Complains of pain in chest Pain currently is 5 out of 10 on a pain scale. Pain began 2-3 days ago. Neuro: Level of Consciousness is awake, alert, obeys commands, Oriented to person, place, time, situation, Reports headache weakness Denies blurred vision. Cardiovascular: Capillary refill < 3 seconds Patient's skin is warm and dry. Respiratory: Reports cough that is non-productive, pain with cough Airway is patent Respiratory effort is even, unlabored, Respiratory pattern is regular, symmetrical, Breath sounds are clear bilaterally. GI: Abdomen is flat, Reports nausea, Patient currently denies vomiting. : Reports burning with urination. EENT: Oral mucosa is moist. Throat is clear is pink. Derm: Skin is intact, is healthy with good turgor, Skin is pink, warm \T\ dry. Musculoskeletal: Range of motion: intact in all extremities. 09:35 Reassessment: I agree with previous assessment. hb 10:30 Reassessment: Patient appears in no apparent distress at this time. Patient and/or em family updated on plan of care and expected duration. Pain level reassessed. Patient is alert, oriented x 3, equal unlabored respirations, skin warm/dry/pink. 11:30 Reassessment: Patient appears in no apparent distress at this time. Patient and/or em family updated on plan of care and expected duration. Pain level reassessed. Patient is alert, oriented x 3, equal unlabored respirations, skin warm/dry/pink. 12:38 Reassessment: Patient appears in no apparent distress at this time. Patient and/or em family updated on plan of care and expected duration. Pain level reassessed. Patient is alert, oriented x 3, equal unlabored respirations, skin warm/dry/pink. reports headache and chest pain is better, rates 2/10 Patient states feeling better. 13:33 Reassessment: Patient appears in no apparent distress at this time. Patient and/or em family updated on plan of care and expected duration. Pain level reassessed. Patient is alert, oriented x 3, equal unlabored respirations, skin warm/dry/pink. reports nausea medication has not helped, provider notified. 13:55 Reassessment: Patient appears in no apparent distress at this time. report given to israel You RN at [facility], pending transportation. 14:15 Reassessment: Patient appears in no apparent distress at this time. Patient and/or em family updated on plan of care and expected duration. Pain level reassessed. report given to EMS. Vital Signs: 08:58 BP 129 / 78; Pulse 84; Resp 16; Temp 98.4; Pulse Ox 97% on R/A; Pain 8/10; hb 10:00 BP 112 / 77; Pulse 80; Resp 18; Pulse Ox 99% on R/A; Pain 5/10; em 11:00 BP 131 / 77; Pulse 77; Resp 18; Pulse Ox 98% on R/A; em 12:30 BP 119 / 75; Pulse 71; Resp 16; Temp 99.5; Pulse Ox 100% on R/A; Pain 2/10; em 12:58 BP 151 / 84; Pulse 77; Resp 18; Pulse Ox 97% on R/A; Pain 2/10; em 14:17 BP 128 / 74; Pulse 69; Resp 18; Pulse Ox 99% on R/A; em ED Course: 08:47 Patient arrived in ED. as 08:48 Familia Reddy MD is Attending Physician. kdr 08:58 Triage completed. hb 08:58 Arm band placed on. hb 09:18 Joey Longoria LVN is Primary Nurse. em 09:26 EKG done, by access tech. reviewed by Familia Reddy MD. at1 09:53 Radiology exam delayed due to PT WASN'T IN ASSIGNED ED ROOM AT TIME OF X RAY. sw 10:00 Initial lab(s) drawn, by me, sent to lab. First set of blood cultures drawn by me. em 10:23 Inserted saline lock: 22 gauge in right antecubital area, using aseptic technique. em Blood collected. 10:38 Patient has correct armband on for positive identification. Placed in gown. Bed in low em position. Call light in reach. Adult w/ patient. manager monitoring on. Pulse ox on. NIBP on. 10:43 X-ray completed. Portable x-ray completed in exam room. Patient tolerated procedure jb2 well. 10:44 Chest Single View XRAY In Process Unspecified. EDMS 10:45 Notified ED physician of a critical lab result(s). calcium-6.9. sv 10:59 initiated a transfer with Verna at the [facility] transfer center. eb 11:[address] Diaz from [facility] with Dr. Reddy for patient transfer consultation. eb 12:55 CT completed. Patient tolerated procedure well. Patient moved to CT via stretcher. sj Patient moved back from CT. 12:56 CT Abd/Pelvis - Without Cont In Process Unspecified. EDMS 13:32 No provider procedures requiring assistance completed. Patient transferred, IV remains em in place. Administered Medications: 10:31 Drug: Tylenol 650 mg Route: PO; em 12:49 Follow up: Response: No adverse reaction; Pain is decreased em 12:50 Drug: Zofran 4 mg Route: PO; em 13:58 Follow up: Response: No adverse reaction; Nausea is decreased em 14:10 Drug: Zofran 4 mg Route: IVP; Site: right antecubital; ph 14:15 Follow up: Response: Medication administered at discharge. em Outcome: 10:53 ER care complete, transfer ordered by . kdr 14:18 Transferred by ground EMS to [facility], Transfer form em completed. X-rays sent w/ patient. 14:18 Condition: good 14:18 Instructed on the need for transfer, Demonstrated understanding of instructions. 14:19 Patient left the ED. em Addendum: 01/31/2019 09:49 Addendum: Culture Results: Positive urine culture. Pt was transferred to [facility] a ria RamirezCarson, contacted [facility] and they stated pt was no longer there. Contacted patient and pt states she was d/c'd from [facility] yesterday and prescribed Ciprofloxacin which is sensitive to Proteus Mirabilis. Faxed Urine culture and blood culture results to pt's PCP per pt's request, to Dr. Kang at [facility] Family Medicine. Signatures: Dispatcher [employer] Erma Angeles, RN RN Familia Coleman MD MD [facility] Nolan Mendieta jb2 Brooklyn Mcallister Edgar, SHOTGUN SHELL ASSEMBLY MACHINE OPERATOR SHOTGUN SHELL ASSEMBLY MACHINE OPERATOR Josseline Novoa Audri, RN RN aa5 Kaylee Goetz, medical claims processor EKG Tat1 Kelli Thomas RN RN Eliza Barragan Heather, RN RN hb Botello, Elizabeth eb
--- NOTE | 2019-01-28 10:54 | EDPHYS ---
Physician Documentation [facility] Name: Juhi Aguilar Age: 63 yrs Sex: Female : 1955 Arrival Date: 01/28/2019 Time: 08:47 Bed 19 Private MD: ED Physician Familia Reddy HPI: 01/28 09:57 This 63 yrs old Female presents to ER via Wheelchair with complaints of kdr Decreased Appetite, Pain With Urination, Fever - Flu+. 09:57 The patient reports fever, not measured (subjective). Onset: The symptoms/episode kdr began/occurred gradually, 3 day(s) ago. Modifying factors: Recent medications: ibuprofen. Associated signs and symptoms: Pertinent positives: chills, cough, decreased appetite, Fever. Severity of symptoms: At their worst the symptoms were mild moderate just prior to arrival, in the emergency department the symptoms are unchanged. The patient has not experienced similar symptoms in the past. The patient has been recently seen at the [facility] Emergency Department, this week, Diagnosed with Flu - given Tamiflu. Historical: - Allergies: 08:58 Adhesives; hb 08:58 Codeine; hb 08:58 sirolimus; hb - Home Meds: 12:56 bisacodyl 5 mg Oral TbEC 1 tab once daily [Active]; calcitriol 0.25 mcg Oral cap 1 cap em once daily [Active]; clonazepam 0.5 mg Oral tab 2 times per day [Active]; cyclobenzaprine 10 mg Oral tab 1 tab 3 times per day [Active]; cyclosporine ophthalmic 1 drop 2 times per day [Active]; cyclosporine 25 mg Oral cap 3 cap twice a day [Active]; diclofenac sodium 1 % Topical gel twice a day [Active]; enoxaparin 40 mg/0.4 mL subcutaneous syrg 0.4 mL once daily [Active]; famotidine 20 mg Oral tab 1 tab 2 times per day [Active]; furosemide 40 mg Oral tab 1 tab 2 times per day [Active]; furosemide 40 mg Oral tab 2 times per day [Active]; glipizide 5 mg Oral tab 1 tab once daily [Active]; hydrocodone-acetaminophen 5-325 mg Oral tab 2 tabs every 8 hours [Active]; hydrocodone-acetaminophen 5-325 mg Oral tab every 6 hours [Active]; meloxicam 7.5 mg Oral tab 1 tab once daily [Active]; metoprolol succinate 50 mg Oral Tb24 1.5 tabs twice a day [Active]; mycophenolate sodium 360 mg Oral TbEC 2 tabs 2 times per day [Active]; omeprazole 20 mg Oral cpDR 1 cap once daily [Active]; ondansetron HCl 4 mg Oral tab every 8 hours [Active]; pnv comb no.[id number]-[id number] Acid [Active]; pravastatin 10 mg Oral tab nightly [Active]; pravastatin 10 mg Oral tab once daily [Active]; prednisone 5 mg Oral tab once daily [Active]; Prolia 60 mg/mL subcutaneous syrg every 6 mo [Active]; spironolactone 25 mg Oral tab 1 tab once daily [Active]; spironolactone 25 mg Oral tab once daily [Active]; sulindac 150 mg Oral tab 1 tab 2 times per day [Active]; tramadol 50 mg Oral tab 1 tab every 6 hours [Active]; - PMHx: 12:56 Cataracts; GERD; Hyperlipidemia; hyperparathyroidism; Hypertension; Myalgia; em osteoarthritis; - PSHx: 12:56 Timoteo hips; Right renal transplant; em - Immunization history:: Adult Immunizations up to date. - Social history:: Smoking status: Patient/guardian denies using tobacco. - Ebola Screening: : No symptoms or risks identified at this time. ROS: 09:57 Eyes: Negative for injury, pain, redness, and discharge, Neck: Negative for injury, kdr pain, and swelling, Cardiovascular: Negative for chest pain, palpitations, and edema, Respiratory: Negative for shortness of breath, cough, wheezing, and pleuritic chest pain, Abdomen/GI: Negative for abdominal pain, nausea, vomiting, diarrhea, and constipation, Back: Negative for injury and pain, : Negative for injury, bleeding, discharge, and swelling, Skin: Negative for injury, rash, and discoloration. 09:57 Constitutional: Positive for body aches, chills, fatigue, fever, malaise, poor PO intake. 09:57 : Positive for foul smelling urine. Exam: 09:57 Constitutional: This is a well developed, well nourished patient who is awake, alert, kdr and in no acute distress. Head/Face: Normocephalic, atraumatic. Eyes: Pupils equal round and reactive to light, extra-ocular motions intact. Lids and lashes normal. Conjunctiva and sclera are non-icteric and not injected. Cornea within normal limits. Periorbital areas with no swelling, redness, or edema. Neck: Trachea midline, no thyromegaly or masses palpated, and no cervical lymphadenopathy. Supple, full range of motion without nuchal rigidity, or vertebral point tenderness. No Meningismus. Chest/axilla: Normal chest wall appearance and motion. Nontender with no deformity. No lesions are appreciated. Cardiovascular: Regular rate and rhythm with a normal S1 and S2. No gallops, murmurs, or rubs. Normal PMI, no JVD. No pulse deficits. Respiratory: Lungs have equal breath sounds bilaterally, clear to auscultation and percussion. No rales, rhonchi or wheezes noted. No increased work of breathing, no retractions or nasal flaring. Abdomen/GI: Soft, non-tender, with normal bowel sounds. No distension or tympany. No guarding or rebound. No evidence of tenderness throughout. Back: No spinal tenderness. No costovertebral tenderness. Full range of motion. Skin: Warm, dry with normal turgor. Normal color with no rashes, no lesions, and no evidence of cellulitis. 09:57 MS/ Extremity: Pulses equal, no cyanosis. Neurovascular intact. Full, normal range kdr of motion. Neuro: Awake and alert, GCS 15, oriented to person, place, time, and situation. Cranial nerves II-XII grossly intact. Motor strength 5/5 in all extremities. Sensory grossly intact. Cerebellar exam normal. Normal gait. Psych: Awake, alert, with orientation to person, place and time. Behavior, mood, and affect are within normal limits. Vital Signs: 08:58 BP 129 / 78; Pulse 84; Resp 16; Temp 98.4; Pulse Ox 97% on R/A; Pain 8/10; hb 10:00 BP 112 / 77; Pulse 80; Resp 18; Pulse Ox 99% on R/A; Pain 5/10; em 11:00 BP 131 / 77; Pulse 77; Resp 18; Pulse Ox 98% on R/A; em 12:30 BP 119 / 75; Pulse 71; Resp 16; Temp 99.5; Pulse Ox 100% on R/A; Pain 2/10; em 12:58 BP 151 / 84; Pulse 77; Resp 18; Pulse Ox 97% on R/A; Pain 2/10; em 14:17 BP 128 / 74; Pulse 69; Resp 18; Pulse Ox 99% on R/A; em MDM: 09:57 Data reviewed: vital signs, nurses notes, lab test result(s), radiologic studies. kdr Counseling: I had a detailed discussion with the patient and/or guardian regarding: the historical points, exam findings, and any diagnostic results supporting the discharge/admit diagnosis, lab results, radiology results. 10:53 Patient medically screened. kdr 01/28 09:11 Order name: Basic Metabolic Panel; Complete Time: 10:44 kdr 01/28 09:11 Order name: Blood Culture Adult (2) kdr 01/28 09:11 Order name: CBC with Diff kdr 01/28 09:11 Order name: Ckmb; Complete Time: 10:44 kdr 01/28 09:11 Order name: CPK; Complete Time: 10:44 kdr 01/28 09:11 Order name: Lactate; Complete Time: 10:44 kdr 01/28 09:11 Order name: LFT's; Complete Time: 10:44 kdr 01/28 09:11 Order name: Lipase; Complete Time: 10:44 kdr 01/28 09:11 Order name: Procalcitonin; Complete Time: 11:21 kdr 01/28 09:11 Order name: Protime (+inr); Complete Time: 10:32 kdr 01/28 09:11 Order name: Ptt, Activated; Complete Time: 10:32 kdr 01/28 09:11 Order name: Troponin (emerg Dept Use Only); Complete Time: 10:44 kdr 01/28 09:11 Order name: Urine Microscopic Only kdr 01/28 10:18 Order name: CBC Smear Scan EDMS 03 09:11 Order name: Chest Single View XRAY; Complete Time: 10:55 kdr 01/28 09:11 Order name: Accucheck; Complete Time: 10:22 kdr 01/28 09:11 Order name: Cardiac monitoring; Complete Time: 10:22 kdr 01/28 09:11 Order name: EKG - Nurse/Tech; Complete Time: 10:22 kdr 01/28 09:11 Order name: IV Saline Lock - Large Bore; Complete Time: 10:22 kdr 01/28 09:11 Order name: Labs collected and sent; Complete Time: 10:22 kdr 01/28 09:11 Order name: O2 Per Protocol; Complete Time: 10: kdr 01/28 09:11 Order name: O2 Sat Monitoring; Complete Time: 10:23 [facility] 01/28 11:17 Order name: Urine Dipstick--Ancillary (enter results) eb 01/28 11:36 Order name: Urine Culture [facility] 01/28 11:37 Order name: EKG Electrocardiogram [facility] 01/28 12:24 Order name: CT Abd/Pelvis - Without Cont em Administered Medications: 10:31 Drug: Tylenol 650 mg Route: PO; em 12:49 Follow up: Response: No adverse reaction; Pain is decreased em 12:50 Drug: Zofran 4 mg Route: PO; em 13:58 Follow up: Response: No adverse reaction; Nausea is decreased em 14:10 Drug: Zofran 4 mg Route: IVP; Site: right antecubital; ph 14:15 Follow up: Response: Medication administered at discharge. em Disposition: 01/28/19 10:53 Transfer ordered to [facility] Diagnosis is UTI, Hypocalcemia, leukocytosis. - Reason for transfer: Higher level of care. - Accepting physician is [facility] transplant. - Condition is Fair. - Problem is an ongoing problem. - Symptoms have improved. Signatures: Dispatcher [employer] Familia Yang MD MD kdr Joey Longoria, FUSION JUNCTURE GRINDER FUSION JUNCTURE GRINDER em Kelli Thomas RN RN Jeana Espinoza RN RN Corrections: (The following items were deleted from the chart) 14:19 10:53 01/28/2019 10:53 Transfer ordered to [facility] Diagnosis is UTI, em Hypocalcemia, leukocytosis. Reason for transfer: Higher level of care. Accepting physician is [facility] transplant. Condition is Fair. Problem is an ongoing problem. Symptoms have improved. kdr
[2019-01-28 11:28] LABS: Urine Blood 1+ (NEG); Urine Glucose NEGATIVE (NEG); Urine Protein 3+ (NEG); Urine pH 7.5 (5.0-7.0)
[2019-01-28 11:34] LABS: Urine Bacteria >50 /HPF (<20)
[2019-01-28 11:35] LABS: Urine Culture Reflex Order REFLEXED
[2019-01-28 11:41] LABS: Anisocytosis 1+; Blood Morphology Comment NOTED (NOT SEEN); Platelet Estimate ADEQ; Poikilocytosis 1+; Urine White Blood Cell Casts OK
[2019-01-28] MEDS ORDERED: ONDANSETRON 4 MG (ODT) TAB ONE (12:51)
--- NOTE | 2019-01-28 13:12 | RAD REPORT ---
EXAM DESCRIPTION: CT - Abdomen Pelvis Wo Contrast - 01/28/2019 12:56 pm CLINICAL HISTORY: Abdominal pain. ABD PAIN COMPARISON: No comparisons TECHNIQUE: CT imaging of the abdomen and pelvis was performed without contrast. Solid organ, bowel a nd vascular assessment is limited due to lack of IV and oral contrast. All CT scans are performed using dose optimization technique as appropriate and may include automated exposure control or mA/KV adjustment according to patient size. FINDINGS: The lower lung harry are clear.Gallbladder appears distended with multiple stones present . The liver, spleen, pancreas, adrenal glands are within normal limits for a limited non-contrast exami nation.Right lower quadrant transplant kidney is in place. Atrophic ambler kidneys seen. No bowel obstruction, free air, free fluid or abscess. The appendix is normal. Hardware is present in both hips. IMPRESSION: Cholelithiasis with mild gallbladder distention. A limited non-contrast examination was performed as detailed.
--- NOTE | 2019-01-28 13:38 | EKG ---
Test Date: 2019-01-28 Test Time: 09:21:35 Loom Mechanic: AGUSTÍN MEASUREMENT RESULTS: Intervals: Rate: 84 NV: 134 QRSD: 88 QT: 370 QTc: 437 [place]: P: 13 NV: 134 QRS: -11 T: -2 INTERPRETIVE STATEMENTS: Normal sinus rhythm Moderate voltage criteria for LVH, may be normal variant Borderline ECG Compared to ECG 01/04/2019 08:59:46 Left ventricular hypertrophy now present Sinus tachycardia no longer present ST (T wave) deviation no longer present Possible ischemia no longer present Electronically Signed On 01-28-19 13:38:02 CERTIFIED PERSONAL FINANCE COUNSELOR by Telly Hurtado
[2019-01-28] MEDS ORDERED: ONDANSETRON 4 MG/2 ML VIAL ONE (14:13)
== END 2019-01-28 14:19 | disposition short-term general hospital (02) ==
LOC: ER 08:44
DX: N39.0 Urinary tract infection, site not specified (principal); E83.51 Hypocalcemia; D72.829 Elevated white blood cell count, unspecified; I10 Essential (primary) hypertension; E78.5 Hyperlipidemia, unspecified; Z88.5 Allergy status to narcotic agent; Z88.8 Allergy status to other drugs, medicaments and biological substances; Z94.0 Kidney transplant status; Z91.048 Other nonmedicinal substance allergy status
CPT/HCPCS: 36415; 71045; 74176; 80048; 80076; 81003; 81015; 82550; 82553; 83605; 83690; 84145; 84484; 85025; 85610; 85730; 87040; 87077; 87086; 87088; 87186; 93005; 96374; 99285; J2405

== ENCOUNTER 2019-04-12 22:45 | Inpatient (IN) | payer OTHER ==
[2019-04-12] MEDS ORDERED: ACETAMINOPHEN 325 MG TABLET ONE (23:43)
[2019-04-12] MEDS ORDERED: CEFEPIME 1 GM/100 ML BAG IV ONE (23:44)
[2019-04-12] MEDS ORDERED: NA CHLORIDE 0.9% 1,000 ML ONE (23:44)
--- NOTE | 2019-04-13 00:13 | ER ---
Nurse's Notes [facility] Name: Juhi Aguilar Age: 63 yrs Sex: Female : 1955 Arrival Date: 04/12/2019 Time: 22:48 Bed 4 Private MD: Diagnosis: Fever, unspecified;Kidney transplant status;Urinary tract infection, site not specified;Cholelithiasis;Bandemia Presentation: 04/12 23:14 Presenting complaint: pt's daughter states pt started feeling weak this morning, bb started running fever and is c/o body aches and chills, pt is a kidney transplant pt. Transition of care: patient was not received from another setting of care. Onset of symptoms was April 12, 2019. Risk Assessment: Do you want to hurt yourself or someone else? Patient reports no desire to harm self or others. Initial Sepsis Screen: Does the patient meet any 2 criteria? RR > 20 per min. HR > 90 bpm. Yes Does the patient have a suspected source of infection? Yes: Dysuria/Frequency/Urgency/UTI If YES to both, name of provider notified: Wali Caba MD. Care prior to arrival: None. 23:14 Method Of Arrival: Wheelchair bb 23:14 Acuity: LUIGI 2 bb 23:29 Note pt's daughter states she had some burning with urination yesterday but not today. bb Triage Assessment: 23:00 GI: Reports vomiting, patient's daughter states that her mother started running on cc3 fever, chills, vomiting, body pain today. Historical: - Allergies: 23:24 Adhesives; bb 23:24 Codeine; bb 23:24 sirolimus; bb - Home Meds: 23:24 calcitriol 0.25 mcg Oral cap 1 cap once daily [Active]; cyclosporine ophthalmic 1 drop bb 2 times per day [Active]; glipizide 5 mg Oral tab 1 tab once daily [Active]; cyclosporine 25 mg Oral cap 2 cap twice a day [Active]; spironolactone 25 mg Oral tab 1 tab once daily [Active]; prednisone 5 mg Oral tab once daily [Active]; pravastatin 10 mg Oral tab nightly [Active]; famotidine 20 mg Oral tab 1 tab 2 times per day [Active]; metoprolol succinate 50 mg Oral Tb24 1.5 tabs twice a day [Active]; omeprazole 20 mg Oral cpDR 1 cap once daily [Active]; mycophenolate sodium 360 mg Oral TbEC 2 tabs 2 times per day [Active]; calcium carbonate 650 mg calcium (1,625 mg) Oral tab daily [Active]; PNV combo [Active]; - PMHx: 23:24 Cataracts; GERD; Hyperlipidemia; hyperparathyroidism; Hypertension; Myalgia; bb osteoarthritis; kidney transplant; - PSHx: 23:24 kidney transplant; bilateral hip replacement; bb - Immunization history:: Adult Immunizations up to date. - Social history:: Smoking status: unknown. - Family history:: not pertinent. - Ebola Screening: : No symptoms or risks identified at this time. Screenin:00 Abuse screen: Denies threats or abuse. Denies injuries from another. Nutritional cc3 screening: No deficits noted. Tuberculosis screening: No symptoms or risk factors identified. Fall Risk Ambulatory Aid- None/Bed Rest/Nurse Assist (0 pts). Gait- Normal/Bed Rest/Wheelchair (0 pts) Mental Status- Oriented to own ability (0 pts). 23:30 Patient has been NPO before screening. The patient is alert, able to follow commands. cc3 The patient does not exhibit slurred or garbled speech The patient is not exhibiting difficulty speaking. The patient does not exhibit difficulty understanding words. The patient is able to swallow own secretions with no drooling or need for suction. Patient tolerated one teaspoon of water. No drooling, immediate coughing, gurgling, or clearing of the throat was noted. The patient tolerated 90mL of water. No drooling, immediate coughing, gurgling, or clearing of the throat was noted. The patient passed the bedside swallow screening. Oral medications may be given as ordered. Contact Physician for further diet orders. Provider notified of bedside swallow screening results: Wali Caba MD. Assessment: 23:00 General: Appears in no apparent distress. comfortable, Behavior is calm, cooperative, cc3 appropriate for age. Pain: Complains of pain in generalized acute body pain. Neuro: Level of Consciousness is awake, alert, obeys commands, Oriented to person, place, time, situation, Appropriate for age. Cardiovascular: Patient's skin is warm and dry. Respiratory: Airway is patent Respiratory effort is even, unlabored, Respiratory pattern is regular, symmetrical. GI: Abdomen is round. : No signs and/or symptoms were reported regarding the genitourinary system. EENT: No signs and/or symptoms were reported regarding the EENT system. Derm: No signs and/or symptoms reported regarding the dermatologic system. Musculoskeletal: Circulation, motion, and sensation intact. Range of motion: intact in all extremities. 04/13 00:05 Reassessment: Patient appears in no apparent distress at this time. Patient and/or cc3 family updated on plan of care and expected duration. Pain level reassessed. Patient is alert, oriented x 3, equal unlabored respirations, skin warm/dry/pink. Patient came back from CT scan department, awaiting result. 01:18 Reassessment: Patient appears in no apparent distress at this time. Patient and/or cc3 family updated on plan of care and expected duration. Pain level reassessed. Patient is alert, oriented x 3, equal unlabored respirations, skin warm/dry/pink. Patient denies pain at this time. 02:26 Reassessment: Patient appears in no apparent distress at this time. Patient and/or cc3 family updated on plan of care and expected duration. Pain level reassessed. Patient is alert, oriented x 3, equal unlabored respirations, skin warm/dry/pink. 03:09 Reassessment: Patient appears in no apparent distress at this time. Patient and/or cc3 family updated on plan of care and expected duration. Pain level reassessed. Patient is alert, oriented x 3, equal unlabored respirations, skin warm/dry/pink. 03:19 Reassessment: Patient for admission, Dr. Gaspar at bedside. cc3 04:30 Reassessment: Patient appears in no apparent distress at this time. Patient and/or cc3 family updated on plan of care and expected duration. Pain level reassessed. Patient is alert, oriented x 3, equal unlabored respirations, skin warm/dry/pink. 05:30 Reassessment: Patient appears in no apparent distress at this time. Patient and/or cc3 family updated on plan of care and expected duration. Pain level reassessed. Patient is alert, oriented x 3, equal unlabored respirations, skin warm/dry/pink. Room available in 220, called for report but as per the charge nurse the nurse who will receive will just call me back. 05:55 Reassessment: Patient appears in no apparent distress at this time. Patient and/or cc3 family updated on plan of care and expected duration. Pain level reassessed. Patient is alert, oriented x 3, equal unlabored respirations, skin warm/dry/pink. Report called and handed over to ALEXANDRE Marte for continuity of care and management. 06:00 Reassessment: Patient appears in no apparent distress at this time. Patient and/or cc3 family updated on plan of care and expected duration. Pain level reassessed. Patient is alert, oriented x 3, equal unlabored respirations, skin warm/dry/pink. Patient left ER for admission vitally stable by wheelchair escorted by me and the patient's daughter. Patient denies pain at this time. Patient states feeling better. Patient states symptoms have improved. Vital Signs: 04/12 23:24 BP 162 / 116; Pulse 125; Resp 26 S; Temp 100.3(O); Pulse Ox 96% on R/A; Weight 65.77 kg bb (R); Height 4 ft. 11 in. (149.86 cm) (R); 04/13 00:25 BP 166 / 97; Pulse 107; Resp 27 S; Temp 99.4(O); Pulse Ox 98% on R/A; cc3 01:01 BP 164 / 97; Pulse 101; Resp 22 S; Temp 101(O); Pulse Ox 98% on R/A; cc3 02:07 BP 159 / 89; Pulse 96; Resp 23 S; Temp 99.7(O); Pulse Ox 97% on R/A; cc3 03:17 BP 164 / 95; Pulse 93; Resp 18 S; Temp 98.7(O); Pulse Ox 97% on R/A; cc3 03:50 BP 157 / 90; Pulse 91; Resp 19 S; Temp 98.9(O); Pulse Ox 98% on R/A; cc3 04:38 BP 162 / 94; Pulse 86; Resp 20 S; Temp 99(O); Pulse Ox 97% on R/A; cc3 05:50 BP 162 / 91; Pulse 92; Resp 18 S; Temp 99.5(O); Pulse Ox 98% on R/A; cc3 04/12 23:24 Body Mass Index 29.29 (65.77 kg, 149.86 cm) bb ED Course: 04/12 22:48 Patient arrived in ED. am2 22:58 Ayesha Segura is Primary Nurse. cc3 23:00 Patient has correct armband on for positive identification. Placed in gown. Bed in low cc3 position. Call light in reach. Side rails up X2. drip box tender on. Pulse ox on. NIBP on. 23:04 Wali Caba MD is Attending Physician. salomón 23:18 Triage completed. bb 23:20 Inserted saline lock: 20 gauge in right antecubital area, using aseptic technique. cc3 Blood collected. 23:24 Arm band placed on Patient placed in an exam room, on a stretcher, on documentation analyst, bb on pulse oximetry. Family accompanied patient. 23:45 XRAY Chest (1 view) In Process Unspecified. EDMS 04/13 00:10 Ismael Gaspar MD is Hospitalizing Provider. salomón 00:18 CT completed. Patient tolerated procedure well. Patient moved to CT via stretcher. Patient moved back from CT. 00:19 CT Stone Protocol In Process Unspecified. EDMS 00:53 Lab(s) recollected, by me, sent to lab. bb 02:20 Ismael Gaspar MD is Hospitalizing Provider. salomón 05:55 No provider procedures requiring assistance completed. Patient admitted, IV remains in cc3 place. Administered Medications: 04/12 23:25 Drug: NS 0.9% 1000 ml Route: IV; Rate: 1 bolus; Site: right antecubital; cc3 04/13 00:35 Follow up: Response: No adverse reaction; IV Status: Completed infusion; IV Intake: cc3 1000ml 04/12 23:30 Drug: Tylenol 650 mg Route: PO; cc3 04/13 00:25 Follow up: Response: No adverse reaction; Temperature is decreased cc3 04/12 23:41 Drug: Cefepime 1 grams Route: IVPB; Rate: 200 ml/hr; Infused Over: 30 mins; Site: right cc3 antecubital; 04/13 00:11 Follow up: Response: No adverse reaction; IV Status: Completed infusion; IV Intake: cc3 100ml 01:30 Drug: Flagyl 500 mg Volume: 100 ml; Route: IVPB; Rate: 200 ml/hr; Infused Over: 30 cc3 mins; Site: right antecubital; 02:00 Follow up: Response: No adverse reaction; IV Status: Completed infusion; IV Intake: cc3 100ml Point of Care Testing: Blood Glucose: 04/12 23:25 Blood Glucose: 142 mg/dL; bb Ranges: Intake: 04/13 00:11 IV: 100ml; Total: 100ml. cc3 00:35 IV: 1000ml; Total: 1100ml. cc3 02:00 IV: 100ml; Total: 1200ml. cc3 Outcome: 00:11 Decision to Hospitalize by Provider. salomón 01:12 ER care complete, transfer ordered by . salomón 02:24 Decision to Hospitalize by Provider. salomón 05:55 Admitted to Med/surg accompanied by nurse, family with patient, via wheelchair, room cc3 220, with chart, Report called to ALEXANDRE Marte 05:55 Condition: stable 05:55 Instructed on the need for admit, Demonstrated understanding of instructions. 06:08 Patient left the ED. cc3 Signatures: Dispatcher [employer] EDWali Sheriff MD MD cha Hagler, Ervin eh Ballard, Brenda RN RN Kaylee Pastor Charlene cc3 Corrections: (The following items were deleted from the chart) 04/12 23:56 23:15 Inserted saline lock: 20 gauge in right antecubital area, using aseptic cc3 technique. Blood collected. cc3 04/13 04:39 04/12 23:14 Initial Sepsis Screen: Does the patient meet any 2 criteria? No. Patient's bb initial sepsis screen is negative. Does the patient have a suspected source of infection? No. Patient's initial sepsis screen is negative. bb 04/13 06:37 05:30 BP 162 / 91; Pulse 92bpm; Resp 18bpm; Spontaneous; Pulse Ox 98% RA; Temp 99.5F cc3 Oral; cc3
--- NOTE | 2019-04-13 00:13 | EDPHYS ---
Physician Documentation [facility] Name: Juhi Aguilar Age: 63 yrs Sex: Female : 1955 Arrival Date: 04/12/2019 Time: 22:48 Bed 4 Private MD: ED Physician Wali Caba HPI: 04/12 23:13 This 63 yrs old Female presents to ER via Unassigned with complaints of High salomón Blood Pressure, Fever, Vomiting, General Weakness. 23:13 The patient has elevated blood pressure and discovered this at home, with a home salomón device. Onset: The symptoms/episode began/occurred 1 day(s) ago. Modifying factors: The symptoms are aggravated by activity, The symptoms are alleviated by remaining still. Associated signs and symptoms: Pertinent positives: dizziness, weakness. Severity of symptoms: At its worst the blood pressure was mild, in the emergency department the blood pressure is unchanged. The patient has not experienced similar symptoms in the past. Historical: - Allergies: 23:24 Adhesives; bb 23:24 Codeine; bb 23:24 sirolimus; bb - Home Meds: 23:24 calcitriol 0.25 mcg Oral cap 1 cap once daily [Active]; cyclosporine ophthalmic 1 drop bb 2 times per day [Active]; glipizide 5 mg Oral tab 1 tab once daily [Active]; cyclosporine 25 mg Oral cap 2 cap twice a day [Active]; spironolactone 25 mg Oral tab 1 tab once daily [Active]; prednisone 5 mg Oral tab once daily [Active]; pravastatin 10 mg Oral tab nightly [Active]; famotidine 20 mg Oral tab 1 tab 2 times per day [Active]; metoprolol succinate 50 mg Oral Tb24 1.5 tabs twice a day [Active]; omeprazole 20 mg Oral cpDR 1 cap once daily [Active]; mycophenolate sodium 360 mg Oral TbEC 2 tabs 2 times per day [Active]; calcium carbonate 650 mg calcium (1,625 mg) Oral tab daily [Active]; PNV combo [Active]; - PMHx: 23:24 Cataracts; GERD; Hyperlipidemia; hyperparathyroidism; Hypertension; Myalgia; bb osteoarthritis; kidney transplant; - PSHx: 23:24 kidney transplant; bilateral hip replacement; bb - Immunization history:: Adult Immunizations up to date. - Social history:: Smoking status: unknown. - Family history:: not pertinent. - Ebola Screening: : No symptoms or risks identified at this time. ROS: 23:14 Constitutional: Negative for fever, chills, and weight loss, Eyes: Negative for injury, salomón pain, redness, and discharge, ENT: Negative for injury, pain, and discharge, Neck: Negative for injury, pain, and swelling, Cardiovascular: Negative for chest pain, palpitations, and edema, Respiratory: Negative for shortness of breath, cough, wheezing, and pleuritic chest pain, Abdomen/GI: Negative for abdominal pain, nausea, vomiting, diarrhea, and constipation, Back: Negative for injury and pain, : Negative for injury, bleeding, discharge, and swelling, MS/Extremity: Negative for injury and deformity, Skin: Negative for injury, rash, and discoloration, Neuro: Negative for headache, weakness, numbness, tingling, and seizure, Psych: Negative for depression, anxiety, suicide ideation, homicidal ideation, and hallucinations, Allergy/Immunology: Negative for hives, rash, and allergies, Endocrine: Negative for neck swelling, polydipsia, polyuria, polyphagia, and marked weight changes, Hematologic/Lymphatic: Negative for swollen nodes, abnormal bleeding, and unusual bruising. Exam: 23:14 Head/Face: Normocephalic, atraumatic. Eyes: Pupils equal round and reactive to light, salomón extra-ocular motions intact. Lids and lashes normal. Conjunctiva and sclera are non-icteric and not injected. Cornea within normal limits. Periorbital areas with no swelling, redness, or edema. ENT: Nares patent. No nasal discharge, no septal abnormalities noted. Tympanic membranes are normal and external auditory canals are clear. Oropharynx with no redness, swelling, or masses, exudates, or evidence of obstruction, uvula midline. Mucous membranes moist. Neck: Trachea midline, no thyromegaly or masses palpated, and no cervical lymphadenopathy. Supple, full range of motion without nuchal rigidity, or vertebral point tenderness. No Meningismus. Chest/axilla: Normal chest wall appearance and motion. Nontender with no deformity. No lesions are appreciated. Cardiovascular: Regular rate and rhythm with a normal S1 and S2. No gallops, murmurs, or rubs. Normal PMI, no JVD. No pulse deficits. Respiratory: Lungs have equal breath sounds bilaterally, clear to auscultation and percussion. No rales, rhonchi or wheezes noted. No increased work of breathing, no retractions or nasal flaring. Abdomen/GI: Soft, non-tender, with normal bowel sounds. No distension or tympany. No guarding or rebound. No evidence of tenderness throughout. Back: No spinal tenderness. No costovertebral tenderness. Full range of motion. Female : Normal external genitalia. Skin: Warm, dry with normal turgor. Normal color with no rashes, no lesions, and no evidence of cellulitis. MS/ Extremity: Pulses equal, no cyanosis. Neurovascular intact. Full, normal range of motion. Neuro: Awake and alert, GCS 15, oriented to person, place, time, and situation. Cranial nerves II-XII grossly intact. Motor strength 5/5 in all extremities. Sensory grossly intact. Cerebellar exam normal. Normal gait. Psych: Awake, alert, with orientation to person, place and time. Behavior, mood, and affect are within normal limits. 23:14 Constitutional: The patient appears febrile. 23:15 Neck: ROM/movement: is normal, no acute changes, Meningeal signs: are not present, salomón Kernig's sign is negative, Brudzinski's sign is negative. Vital Signs: 23:24 BP 162 / 116; Pulse 125; Resp 26 S; Temp 100.3(O); Pulse Ox 96% on R/A; Weight 65.77 kg bb (R); Height 4 ft. 11 in. (149.86 cm) (R); 04/13 00:25 BP 166 / 97; Pulse 107; Resp 27 S; Temp 99.4(O); Pulse Ox 98% on R/A; cc3 01:01 BP 164 / 97; Pulse 101; Resp 22 S; Temp 101(O); Pulse Ox 98% on R/A; cc3 02:07 BP 159 / 89; Pulse 96; Resp 23 S; Temp 99.7(O); Pulse Ox 97% on R/A; cc3 03:17 BP 164 / 95; Pulse 93; Resp 18 S; Temp 98.7(O); Pulse Ox 97% on R/A; cc3 03:50 BP 157 / 90; Pulse 91; Resp 19 S; Temp 98.9(O); Pulse Ox 98% on R/A; cc3 04:38 BP 162 / 94; Pulse 86; Resp 20 S; Temp 99(O); Pulse Ox 97% on R/A; cc3 05:50 BP 162 / 91; Pulse 92; Resp 18 S; Temp 99.5(O); Pulse Ox 98% on R/A; cc3 04/12 23:24 Body Mass Index 29.29 (65.77 kg, 149.86 cm) bb MDM: 04/12 23:04 Patient medically screened. [facility] 23:16 Data reviewed: vital signs, nurses notes, lab test result(s), EKG, radiologic studies. [facility] 04/12 23:12 Order name: Basic Metabolic Panel [facility] 04/12 23:12 Order name: CBC with Diff; Complete Time: 02:[address] [facility] 04/12 23:12 Order name: LFT's; Complete Time: 01:[address] [facility] 04/12 23:12 Order name: Magnesium; Complete Time: 01:[address] [facility] 04/12 23:12 Order name: NT PRO-BNP; Complete Time: 01:[address] [facility] 04/12 23:12 Order name: PT-INR; Complete Time: 01:[address] [facility] 04/12 23:12 Order name: Troponin (emerg Dept Use Only); Complete Time: 01:[address] [facility] 04/12 23:12 Order name: Lactate; Complete Time: 00:[address] [facility] 04/12 23:12 Order name: Procalcitonin; Complete Time: 02:[address] [facility] 04/12 23:12 Order name: Blood Culture Adult (2) [facility] 04/12 23:12 Order name: Urine Culture [facility] 04/12 23:16 Order name: Flu; Complete Time: 01:[address] [facility] 04/12 23:17 Order name: Basic Metabolic Panel; Complete Time: 01:28 EDMS 04/12 23:44 Order name: Glucose, Ancillary Testing; Complete Time: 23:50 EDOH 04/12 23:12 Order name: XRAY Chest (1 view) [facility] 04/12 23:12 Order name: EKG; Complete Time: 23:[address] [facility] 04/12 23:16 Order name: CT Stone Protocol [facility] 04/13 00:57 Order name: Urine Microscopic Only; Complete Time: 02:19 mw2 04/13 00:59 Order name: Urine Dipstick--Ancillary (enter results); Complete Time: 01:28 mw2 04/13 01:07 Order name: Manual Differential; Complete Time: 02:19 EDOH 04/13 03:19 Order name: US Abdomen Limited [facility] 04/13 04:16 Order name: Lactate EDOH 04/13 04:16 Order name: Lactate [facility] 04/13 04:16 Order name: Basic Metabolic Panel [facility] 04/13 04:16 Order name: CBC with Automated Diff EDOH 04/13 04:16 Order name: Magnesium [facility] 04/12 23:12 Order name: Cardiac monitoring; Complete Time: 23:[address] [facility] 04/12 23:12 Order name: EKG - Nurse/Tech; Complete Time: 23:[address] [facility] 04/12 23:12 Order name: IV Saline Lock; Complete Time: 23:[address] [facility] 04/12 23:12 Order name: Labs collected and sent; Complete Time: 23:[address] [facility] 04/12 23:12 Order name: O2 Per Protocol; Complete Time: 23:[address] [facility] 04/12 23:12 Order name: O2 Sat Monitoring; Complete Time: 23:[address] [facility] 04/12 23:12 Order name: Urine Dipstick-Ancillary (obtain specimen); Complete Time: 00:[address] [facility] 04/13 04:14 Order name: CONS Physician Consult [facility] 04/13 04:14 Order name: Renal [facility] Administered Medications: 23:25 Drug: NS 0.9% 1000 ml Route: IV; Rate: 1 bolus; Site: right antecubital; [facility] 04/13 00:35 Follow up: Response: No adverse reaction; IV Status: Completed infusion; IV Intake: cc3 1000ml 04/12 23:30 Drug: Tylenol 650 mg Route: PO; [facility] 04/13 00:25 Follow up: Response: No adverse reaction; Temperature is decreased [facility] 04/12 23:41 Drug: Cefepime 1 grams Route: IVPB; Rate: 200 ml/hr; Infused Over: 30 mins; Site: right cc3 antecubital; 04/13 00:11 Follow up: Response: No adverse reaction; IV Status: Completed infusion; IV Intake: cc3 100ml 01:30 Drug: Flagyl 500 mg Volume: 100 ml; Route: IVPB; Rate: 200 ml/hr; Infused Over: 30 cc3 mins; Site: right antecubital; 02:00 Follow up: Response: No adverse reaction; IV Status: Completed infusion; IV Intake: cc3 100ml Point of Care Testing: Blood Glucose: 04/12 23:25 Blood Glucose: 142 mg/dL; bb Ranges: Critical Glucose Levels:Adult <50 mg/dl or >400 mg/dl <40 mg/dl or >180 mg/dl Disposition: 04/13/19 02:24 Hospitalization ordered by Ismael Gaspar for Inpatient Admission. Preliminary diagnosis are Fever, unspecified, Kidney transplant status, Urinary tract infection, site not specified, Cholelithiasis, Bandemia. - Bed requested for Telemetry/MedSurg (Inpatient). - Status is Inpatient Admission. cc3 - Condition is Fair. - Problem is new. - Symptoms have improved. UTI on Admission? Yes Signatures: Dispatcher [employer] EDWali Sheriff MD MD cha Ballard, Brenda RN RN Cleo Xiong RN RN cg Cordel, Charlene cc3 Corrections: (The following items were deleted from the chart) 04/13 01:09 00:11 Hospitalization Ordered by Ismael Gaspar MD for Inpatient Admission. Preliminary salomón diagnosis is Essential (primary) hypertension; Fever, unspecified; Kidney transplant status; Vomiting; Weakness. Bed requested for Telemetry/MedSurg (Inpatient). Status is Inpatient Admission. Condition is Fair. Problem is new. Symptoms have improved. UTI on Admission? No. salomón :29 01:12 04/13/2019 01:12 Transfer ordered to [facility]. Diagnosis is Fever, salomón unspecified; Vomiting; Cholelithiasis; End stage renal disease. Reason for transfer: Higher level of care. Accepting physician is [facility]. Condition is Fair. Problem is new. Symptoms have improved. salomón :33 01:29 04/13/2019 01:12 Transfer ordered to [facility]. Diagnosis is Fever, salomón unspecified; Vomiting; Cholelithiasis; End stage renal disease; Elevated white blood cell count. Reason for transfer: Higher level of care. Accepting physician is [facility]. Condition is Fair. Problem is new. Symptoms have improved. salomón 02:20 01:33 04/13/2019 01:12 Transfer ordered to [facility]. Diagnosis is salomón Fever, unspecified; Vomiting; Cholelithiasis; End stage renal disease; Elevated white blood cell count. Reason for transfer: Higher level of care. Accepting physician is to [facility]. Condition is Fair. Problem is new. Symptoms have improved. [facility] 03:37 02:24 Hospitalization Ordered by Ismael Gaspar MD for Inpatient Admission. Preliminary [facility] diagnosis is Fever, unspecified; Kidney transplant status; Urinary tract infection, site not specified; Cholelithiasis. Bed requested for Telemetry/MedSurg (Inpatient). Status is Inpatient Admission. Condition is Fair. Problem is new. Symptoms have improved. UTI on Admission? Yes. [facility] 05:28 03:37 04/13/2019 02:24 Hospitalization Ordered by Ismael Gaspar MD for Inpatient cg Admission. Preliminary diagnosis is Fever, unspecified; Kidney transplant status; Urinary tract infection, site not specified; Cholelithiasis; Bandemia. Bed requested for Telemetry/MedSurg (Inpatient). Status is Inpatient Admission. Condition is Fair. Problem is new. Symptoms have improved. UTI on Admission? Yes. [facility] 06:08 05:28 04/13/2019 02:24 Hospitalization Ordered by Ismael Gaspar MD for Inpatient cc3 Admission. Preliminary diagnosis is Fever, unspecified; Kidney transplant status; Urinary tract infection, site not specified; Cholelithiasis; Bandemia. Bed requested for Telemetry/MedSurg (Inpatient). Status is Inpatient Admission. Condition is Fair. Problem is new. Symptoms have improved. UTI on Admission? Yes.
[2019-04-13 01:06] LABS: Absolute Lymphocytes (CBC) 0.4 K/uL (0.7-4.9); Absolute Monocytes 0.9 K/uL (0.1-1.3); Absolute Neutrophil 14.7 K/uL (1.8-8.0); Basophils % 0.1 % (0-1.3); Eosinophils % 0.5 % (0-4.4); Lymphocytes % 2.6 % (15.3-44.8); MPV 8.3 fL (7.6-11.3); Monocytes % 5.8 % (3.3-12.3); RBC Red Blood Cell Count 4.25 M/uL (3.86-4.86)
[2019-04-13 01:16] LABS: Urine Blood 2+ (NEG); Urine Glucose NEGATIVE (NEG); Urine Protein 2+ (NEG); Urine Specific Gravity 1.015 (1.005-1.030)
[2019-04-13 01:19] LABS: ALT/SGPT 27 U/L (12-78); AST/SGOT 14 U/L (15-37); Albumin 3.5 g/dL (3.4-5.0); Alkaline Phosphatase 98 U/L (45-117); BUN Blood Urea Nitrogen 21 mg/dL (7-18); Bicarbonate 24 mmol/L (21-32); Bilirubin Direct 0.2 mg/dL (0-0.2); Bilirubin Total 0.6 mg/dL (0.2-1.0); Glucose Level 106 mg/dL (74-106); Magnesium 1.9 mg/dL (1.8-2.4); NT PRO-BNP 444 pg/mL (<125); Potassium 3.5 mmol/L (3.5-5.1); Protein, Total 7.2 g/dL (6.4-8.2); Sodium Level 140 mmol/L (136-145); Troponin (Emerg Dept Use Only) < 0.02 ng/mL (0.0-0.045)
[2019-04-13] MEDS ORDERED: METRONIDAZOLE 500mg IVPB 500 MG/100 ML BAG IV ONE (01:34)
[2019-04-13 01:35] LABS: Urine Bacteria <20 /HPF (<20); Urine RBC 20-50 /HPF (NONE SEEN)
[2019-04-13 01:36] LABS: Urine Culture Reflex Order REFLEXED
[2019-04-13 02:11] LABS: Blood Morphology Comment NOT SEEN (NOT SEEN); Platelet Estimate ADEQ
[2019-04-13] MEDS ORDERED: NA CHLORIDE 0.9% 1,000 ML IV SCH (05:00)
--- NOTE | 2019-04-13 06:39 | P.HP ---
Certification for Inpatient Patient admitted to: Inpatient With expected LOS: >2 Midnights Patient will require the following post-hospital care: None Practitioner: I am a practitioner with admitting privileges, knowledge of patient current condition, hospital course, and medical plan of care. Services: Services provided to patient in accordance with Admission requirements found in Title 42 Section 412.3 of the Code of Federal Regulations Patient History Date of Service: 04/13/19 Reason for admission: h/o of renal transplant; altered mentation w/ generalized weakness; N/V History of Present Illness: Patient is a 63-year-old female who developed renal failure and required renal transplantation. Patient has been on mycophenolate and cyclosporine. Patient' s kidney has been doing well. Creatinine is stable. However, patient had started developing confusion and also altered mentation. Patient had intractable nausea and vomiting. Patient had generalized weakness in the family brought patient into the emergency room for further evaluation. Initially it was felt because patient had and renal transplant it would be best that patient would be monitored at her prior transplant center. However, at [facility] did not have any beds. We attempted transferring [facility] [place] [facility], they did not have any beds available. Decision was made to accept patient to our service with Nephrology consultation and continued IV hydration. Patient will be admitted for further workup. Allergies adhesive tape Allergy (Unverified 04/13/19 04:41) Itching/Hives/Rash codeine Allergy (Unverified 04/13/19 04:41) Itching/Hives/Rash sirolimus Allergy (Unverified 04/13/19 04:41) Itching/Hives/Rash - Past Medical/Surgical History -: ESRD-S/P RENAL TRANSPLANT -: RENAL TRANSPLANT - Family History Father Family History: Reviewed- Non-Contributory - Social History Smoking Status: Former smoker Smoking therapy provided: No Alcohol use: No CD- Drugs: No Review of Systems 10-point ROS is otherwise unremarkable Physical Examination - Vital Signs Temperature: 99 F Blood Pressure: 160/90 Pulse: 75 Respirations: 16 Pulse Ox (%): 99 - Physical Exam General: Alert, In no apparent distress, Oriented x3 HEENT: Atraumatic, Normocephalic, PERRLA, Mucous membr. moist/pink Neck: Supple, 2+ carotid pulse no bruit, JVD not distended, No Thyromegaly Respiratory: Clear to auscultation bilaterally, Normal air movement Cardiovascular: Regular rate/rhythm, Normal S1 S2, No murmurs Gastrointestinal: Normal bowel sounds, Soft and benign, Non-distended, No tenderness Musculoskeletal: No clubbing, No swelling, No contractures Integumentary: No rashes Neurological: Normal speech, Normal strength at 5/5 x4 extr, Normal tone, Sensation intact, Cranial nerves 3-12 intact, Normal reflexes 2+ - Studies Laboratory Data (last 24 hrs) 04/13/19 00:50: PT 11.8, INR 1.00 04/13/19 00:50: WBC 16.2 H, Hgb 13.2, Hct 39.0, Plt Count 247 04/13/19 00:50: Sodium 140, Potassium 3.5, BUN 21 H, Creatinine 1.28, Glucose 106, Magnesium 1.9, Total Bilirubin 0.6, AST 14 L, ALT 27, Alkaline Phosphatase 98 Microbiology Data (last 24 hrs): 04/12/19 23:32 Nasopharnyx Influenza Type A Antigen Screen - Final 04/12/19 23:32 Nasopharnyx Influenza Type B Antigen Screen - Final Assessment & Plan - Problems (Diagnosis) (1) Fever Current Visit: Yes Status: Acute (2) Altered mental status Current Visit: Yes Status: Acute (3) Generalized weakness Current Visit: Yes Status: Acute (4) History of renal transplant Current Visit: Yes Status: Acute (5) UTI (urinary tract infection) Current Visit: Yes Status: Acute - Plan PLAN: 1. CONTINUE WITH IV HYDRATION 2. CONTINUE WITH IV ANTIBIOTICS 3. CONSULT NEPHROLOGY 4. WILL NEED TO SEND OFF FOR IMMUNOSUPPRESSIVE LABS IF DEEMED NECESSARY BY NEPHROLOGY 5. CONTINUE WITH CURRENT PLAN OF CARE AND WE WOULD DISCUSS POSSIBLE TRANSFER IF PATIENT IS NOT IMPROVING 6. STRICT BLOOD SUGAR AND BLOOD PRESSURE CONTROL 7. GI AND DVT PROPHYLAXIS Discharge Plan: Home Plan to discharge in: Greater than 2 days - Advance Directives Does patient have a Living Will: No Does patient have a Durable POA for Healthcare: No - Code Status/Comfort Care Code Status Assessed: Yes Code Status: Full Code Time Spent Managing PTS Care (In Minutes): 45
[2019-04-13] MEDS: ONDANSETRON 4 MG/2 ML VIAL IV PRN ×2 (07:26→15:37)
--- NOTE | 2019-04-13 08:05 | RAD REPORT ---
EXAM DESCRIPTION: RAD - Chest Single View - 04/12/2019 11:45 pm CLINICAL HISTORY: Fever, body aches, chills COMPARISON: January 2019 TECHNIQUE: AP portable chest image was obtained 2321 hours . FINDINGS: Lung volumes are low. Interstitial pattern is similar to comparison. No failure, volume ov erload or focal lung parenchymal process. Heart and vasculature are normal. No measurable pleural eff usion and no pneumothorax. No acute bony abnormality seen. No acute aortic findings suspected. IMPRESSION: No acute cardiopulmonary process. No significant change from the January 28 study.
--- NOTE | 2019-04-13 08:40 | RAD REPORT ---
EXAM DESCRIPTION: US - Abdomen Exam Limited - 04/13/2019 8:34 am CLINICAL HISTORY: Abdominal pain, right upper quadrant pain COMPARISON: CT study April 12 FINDINGS: Well filled gallbladder is packed with multiple gallstones. Gallbladder wall thickness is present. No pericholecystic fluid identifiable. No common duct stone or biliary tree dilatation identified. IMPRESSION: Well filled gallbladder is packed with multiple gallstones. Gallbladder wall thickening is present without pericholecystic fluid seen. No duct stone or biliary tree dilatation.
[2019-04-13] MEDS: CEFEPIME/SWI 1gm 10 ML IV SCH ×2 (09:00→20:57)
[2019-04-13] MEDS ORDERED: CEFEPIME 1 GM/VIAL IV SCH (09:00)
[2019-04-13] MEDS ORDERED: ENOXAPARIN 40 MG/0.4 ML SQ SCH (09:00)
[2019-04-13] MEDS ORDERED: CEFEPIME 1 GM in NA CHLORIDE 0.9% 100 ML IV SCH (09:00)
--- NOTE | 2019-04-13 09:35 | RAD REPORT ---
EXAM DESCRIPTION: CT - Stone Protocol - 04/13/2019 5:26 am CLINICAL HISTORY: 63 years Female ABD PAIN COMPARISON: January 28, 2019. TECHNIQUE: Images were obtained in axial, sagittal, and coronal planes. No intravenous contrast was administered. This exam was performed according to our departmental dose-optimization program which includes use of Automated Exposure Control, adjustment of the mA and/or kV according to patient size and/or use of i terative reconstruction technique. FINDINGS: No abnormality involving the liver, mass lesion, pancreas, or adrenal glands bilaterally. Distended gallbladder with gallstones. Atrophic change dated kidneys bilaterally. No hydronephrosis. Renal transplant right right pelvis aga in noted. No associated hydronephrosis. Low-attenuation focus peripheral mid kidney unchanged. Mild p erinephric stranding unchanged. No obstructing renal calcifications. Unremarkable bladder. Appendix within normal limits. No bowel obstruction, perforation, or inflammation. Right total hip prosthesis. Internal fixation left hip. No acute osseous abnormality. Trabeculated ap [place] bony pelvis Calcification abdominal aorta with no dilatation seen. Atelectatic change right lower lobe. IMPRESSION: Distended gallbladder with multiple gallstones. Atrophic [place] kidneys. Renal transplant right pelvis again noted. Mild perinephric stranding with n o definite hydronephrosis. Appearance unchanged when correlated with the prior study. Findings stable when correlated with the prior study. Electronically signed by: Belen Carcamo MD 04/13/2019 12:26 AM CDT Due to temporary technical issues with the PACS/Fluency reporting system, reports are being signed by the in house radiologist as a courtesy to ensure prompt reporting. The interpreting radiologist is f ully responsible for the content of the report.
--- NOTE | 2019-04-13 10:29 | EKG ---
Test Date: 2019-04-12 Test Time: 23:29:27 Receiving Dock Checker: AG3 MEASUREMENT RESULTS: Intervals: Rate: 119 SC: 174 QRSD: 84 QT: 302 QTc: 424 [place]: P: 42 SC: 174 QRS: 16 T: 17 INTERPRETIVE STATEMENTS: Sinus tachycardia Otherwise normal ECG Compared to ECG 01/28/2019 09:21:35 Sinus rhythm no longer present Left ventricular hypertrophy no longer present Electronically Signed On 04-13-19 10:28:22 CDT by Telly Hurtado
[2019-04-13 11:19] LABS: Magnesium 1.8 mg/dL (1.8-2.4); Potassium 3.6 mmol/L (3.5-5.1)
[2019-04-13 11:40] LABS: Absolute Lymphocytes (CBC) 0.7 K/uL (0.7-4.9); Basophils % 0.3 % (0-1.3); Hematocrit 38.9 % (36.0-45.0); Lymphocytes % 3.9 % (15.3-44.8); MPV 8.4 fL (7.6-11.3); Monocytes % 5.7 % (3.3-12.3)
[2019-04-13 12:24] VITALS: BMI 29.2
[2019-04-13] MEDS ORDERED: POTASSIUM CL SA 10 MEQ TAB PO ONE (12:25)
[2019-04-13] MEDS ORDERED: MAGNESIUM SULFATE 1 gm IVPB 1 GM/100 ML BAG IV ONE (12:25)
[2019-04-13] MEDS ORDERED: HYDRALAZINE HCL 20 MG/ML VIAL IV ONE (12:38)
[2019-04-13] MEDS ORDERED: HYDROMORPHONE HCL 0.5 MG/0.5 ML INJ IV PRN (14:11)
[2019-04-13] MEDS ORDERED: CLONIDINE 0.2 MG/PATCH TD SCH (15:00)
[2019-04-13] MEDS ORDERED: NACHLORIDE 0.45% 1,000 ML IV SCH (15:00)
--- NOTE | 2019-04-13 15:36 | RAD REPORT ---
EXAM DESCRIPTION: US - Renal Ultrasound-Complete - 04/13/2019 3:22 pm CLINICAL HISTORY: Renal Transplant COMPARISON: Abdomen Exam Limited dated 04/13/2019 FINDINGS: A right lower quadrant transplant kidney is seen. [place] kidneys are not well visualized. The right lower quadrant transplant kidney measures 12.2 x 6.6 x 5.1 cm. No hydronephrosis or mass. The urinary bladder is incompletely distended without gross abnormality seen. IMPRESSION: Unremarkable right lower quadrant transplant kidney.
[2019-04-13] MEDS: FAMOTIDINE 20 MG TAB PO SCH (16:14)
--- NOTE | 2019-04-13 17:08 | RAD REPORT ---
EXAM DESCRIPTION: CT - CTHCSPWOC - 04/13/2019 2:54 pm CLINICAL HISTORY: Severe headache, neck pain COMPARISON: None. TECHNIQUE: Axial 5 mm thick images of the head were obtained. Axial 2 mm thick images of the cervic al spine were obtained with sagittal and coronal reconstruction images generated and reviewed. All CT scans are performed using dose optimization technique as appropriate and may include automated exposure control or mA/KV adjustment according to patient size. FINDINGS: No intracranial hemorrhage, mass, edema or acute intracranial finding. No suspicion for ac hiren infarction. No extra-axial fluid collections. Mastoid air cells and paranasal sinuses are clear o f acute finding. No globe or orbit abnormality seen. No significant atrophy or chronic ischemic dietz e. Approximately 2.5 centimeter expansile bony mass is present centered in the left-side of the hard pal ate. This projects into the left nasal passage. Margins are corticated. No comparison is available. Cervical body height and alignment are normal. No disk space narrowing. No fracture or acute bony abn ormality. No paraspinal mass or hematoma. IMPRESSION: No hemorrhage, mass, edema or other acute intracranial finding. Approximately 2.5 centimeter bony mass present in the left side of the hard palate. 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 An aggressive or malignant process is felt to be unlikely. No compariso n is available. If there are no prior studies available, follow-up could be performed in 3- 4 months to monitor for stability. Negative CT cervical spine examination for acute or significant finding.
--- NOTE | 2019-04-13 18:05 | CON ---
Date of Consultation: 04/13/2019 Reason For Consult: Renal transplant. History Of Present Illness: Ms. Aguilar is a 63-year-old female, who underwent a kidney trans plant back in 2009 for end-stage renal disease. She had a cadaveric transplant and since then, her r enal function had been doing okay. She remains on immunosuppression with Myfortic, cyclosporine and prednisone. She was admitted to [facility] for evaluation of nausea, vomiting, abdominal pa in, and severe headache that has been going on for 1 day prior to admission. She has been admitted w ith a tentative diagnosis of UTI and has been receiving cefepime 1 g every 12 hours and she is also o n normal saline at 100 cc an hour. She is complaining of severe headache at this time and other than that, she feels okay. She has had poor p.o. intake for the last 24-48 hours and denies any dysuria. Denies any chest pain. Denies any shortness of breath and she states that she had a similar sympto ms back in January and was diagnosed with severe urinary tract infection, was treated with antibiotics at that time with significant improvement. Past Medical History: Significant for history of cadaveric kidney transplant in 2009 at [facility] for end -stage renal disease, hypertension, on chronic immunosuppression for history of kidney transplant. Family History: Significant for father with history of kidney disease. Allergies: ALLERGIC TO SIROLIMUS, CODEINE, AND ADHESIVE TAPE. Social History: Lives at home with her family. No history of smoking or alcohol use reported at thi s time. Review of Systems: Positive for severe headache and weakness, also with some nausea with decreased p.o. intake. Denies any abdominal pain. Denies any dysuria. Denies any chest pain, shortness of breath. All other revi ew of systems are negative. Physical Examination: Vital Signs: At this time are showing temperature of 100.2, pulse rate of 104, respiratory rate of 1 8, and blood pressure 195/93. General: She appears in no acute distress. HEENT: Exam shows atraumatic head. No photophobia was noted. Neck: No neck stiffness was noted. Lungs: Clear to auscultation. Heart: Auscultation of the heart revealed regular rate and rhythm. Abdomen: Soft and nontender with some tenderness noted in the right lower quadrant near the area of kidney transplant. No rebound or guarding was noted. Extremities: Showed no evidence of edema. Laboratory Data: Showing stable creatinine of 1.07. Other electrolytes are stable. Albumin was at 3.5 and urinalysis showed 2+ blood and trace amount of leukocyte esterase with 2+ proteinuria. Current Medications: Include cefepime 1 g every 12 hours, prednisone 5 mg a day, potassium replaceme nt x1 time dose, spironolactone 25 mg a day, metoprolol 75 mg b.i.d., pantoprazole 40 mg p.o. daily, calcitriol 0.25 mcg daily, calcium carbonate, and atorvastatin. Impression: 1.History of cadaveric kidney transplant, admitted with nausea, vomiting, and headache. We will nee d to rule out any CINETECHNICIAN infection at this time. We will order CT scan of her head. However, she does not seem to have any clinical signs of meningitis. Her immunosuppression is currently on hold, excep t for the prednisone. We will continue low-dose prednisone and monitor her closely. We will also ac cess records from [facility] to obtain culture reports. Her urinalysis was not very impressive. We are st ill waiting on the final culture reports. I agree with cefepime at this time. We will discontinue I V fluids secondary to uncontrolled hypertension and put her on clonidine patch for blood pressure con trol and change the IV fluids to half-normal saline at 50 cc an hour to prevent further increase in b lood pressure. We will need to possibly send off for further infectious workup including CMV titers and EBV titers. If the headaches are persistent, in the meanwhile, we will also be awaiting transfer to [facility] where she normally gets her routine care. Plan: Plan was discussed with Dr. Parks. All questions were answered and we will continue to follow up. Thank you very much for this consultation. Please do not hesitate to call us with any questions or c oncerns. VV/MODL Voice ID: [id number] Report ID: [id number]
[2019-04-13] MEDS: METOPROLOL XL 25 MG TAB PO SCH (20:56)
[2019-04-13] MEDS ORDERED: ATORVASTATIN 10 MG TAB PO SCH (21:00)
[2019-04-14] MEDS: ONDANSETRON 4 MG/2 ML VIAL IV PRN (02:06)
[2019-04-14 03:29] VITALS: O2SAT 96
[2019-04-14 06:19] LABS: Magnesium 2.3 mg/dL (1.8-2.4); Phosphorus 1.9 mg/dL (2.5-4.9); Potassium 3.9 mmol/L (3.5-5.1)
[2019-04-14] MEDS ORDERED: PANTOPRAZOLE 40MG TABLET PO SCH (08:00)
[2019-04-14] MEDS: FAMOTIDINE 20 MG TAB PO SCH ×2 (08:21→16:16)
[2019-04-14] MEDS: METOPROLOL XL 25 MG TAB PO SCH (08:22)
[2019-04-14] MEDS: CEFEPIME/SWI 1gm 10 ML IV SCH (08:25)
[2019-04-14] MEDS ORDERED: predniSONE 5 MG TAB PO SCH (09:00)
[2019-04-14] MEDS ORDERED: CALCIUM CARBONATE 500 MG TAB PO SCH (09:00)
[2019-04-14] MEDS ORDERED: POTASSIUM PHOS IN 0.9 % NACL 15 MMOL/250 ML BAG IV ONE (09:00)
[2019-04-14] MEDS ORDERED: SPIRONOLACTONE 25 MG TABLET PO SCH (09:00)
[2019-04-14] MEDS ORDERED: CALCITROL 0.25 MCG CAP PO SCH (09:00)
--- NOTE | 2019-04-14 10:30 | P.PN ---
Subjective Date of Service: 04/14/19 Chief Complaint: h/o of renal transplant; altered mentation w/ generalized weakness; N/V Patient seen and examined at bedside with RN. Chart reviewed. Case discussed with nephrology. Currently patient is doing much better than before. Denies having any headaches abdominal pain with vomiting fever or chills. Patient does still complain of having some nausea but much better than before. Review of Systems 10-point ROS is otherwise unremarkable Physical Examination - Vital Signs Temperature: 97.8 F Blood Pressure: 159/83 Pulse: 77 Respirations: 18 Pulse Ox (%): 97 - Physical Exam General: Alert, In no apparent distress HEENT: Atraumatic, PERRLA, EOMI Neck: Supple, JVD not distended Respiratory: Clear to auscultation bilaterally, Normal air movement Cardiovascular: Regular rate/rhythm, Normal S1 S2 Gastrointestinal: Normal bowel sounds, No tenderness Musculoskeletal: No tenderness Integumentary: No rashes Neurological: Normal speech, Normal tone, Normal affect Lymphatics: No axilla or inguinal lymphadenopathy - Studies Medications List Reviewed: Yes Assessment And Plan - Current Problems (Diagnosis) (1) Fever Current Visit: Yes Status: Acute Plan: Fever of 102.6 on admission. Has not had any fever since last 24 hr -currently on IV cefepime, Dc IV fluids today -blood culture and urine cultures were collected. Negative thus far -patient a renal transplant currently on immunosuppressive. High risk for opportunistic infection -CMV and EBV titers pending at this time -will await final culture results before discontinuing antibiotics -anticipate discharge in next 24-48 hr Qualifiers: Fever type: due to other condition Qualified Code(s): R50.81 - Fever presenting with conditions classified elsewhere (2) History of renal transplant Current Visit: Yes Status: Acute Plan: Patient with history of renal transplant in 2009 -renal ultrasound negative for any acute abnormality -nephrology is consulted. Appreciated recommendations at this time -patient does get her routine care [facility]. Currently no beds available. Will pursue the transfer unless patient does get better than at which point can discharge patient home and have her follow up outpatient with her renal transplant team (3) UTI (urinary tract infection) Current Visit: Yes Status: Acute Plan: UA with possibility of UTI -currently on IV cefepime -urine culture negative thus far -past history of UTI as well -will follow up with final culture results. Qualifiers: Urinary tract infection type: acute cystitis Hematuria presence: without hematuria Qualified Code(s): N30.00 - Acute cystitis without hematuria - Plan Pending clinical improvement at this time. Discharge Plan: Home Plan to discharge in: 48 Hours - Code Status/Comfort Care Code Status Assessed: Yes Critical Care: No
--- NOTE | 2019-04-14 16:17 | P.DS ---
Admission Date: 04/13/19 Discharge Date: 04/14/19 Disposition: TRANSFER TO [facility] Discharge Condition: FAIR Reason for Admission: h/o of renal transplant; altered mentation w/ generalized weakness; N/V Consultations: Nephrology - Problems (1) Fever Current Visit: Yes Status: Acute Qualifiers: Fever type: due to other condition Qualified Code(s): R50.81 - Fever presenting with conditions classified elsewhere (2) History of renal transplant Current Visit: Yes Status: Acute (3) UTI (urinary tract infection) Current Visit: Yes Status: Acute Qualifiers: Urinary tract infection type: acute cystitis Hematuria presence: without hematuria Qualified Code(s): N30.00 - Acute cystitis without hematuria Brief History of Present Illness: Patient is a 63-year-old female who developed renal failure and required renal transplantation. Patient has been on mycophenolate and cyclosporine. Patient' s kidney has been doing well. Creatinine is stable. However, patient had started developing confusion and also altered mentation. Patient had intractable nausea and vomiting. Patient had generalized weakness in the family brought patient into the emergency room for further evaluation. Initially it was felt because patient had and renal transplant it would be best that patient would be monitored at her prior transplant center. However, at [facility] did not have any beds. We attempted transferring to [facility], and [facility] [place], [place]. However, they did not have any beds available. Decision was made to accept patient to our service with Nephrology consultation and continued IV hydration. Patient will be admitted for further workup. Hospital Course: Overall during the hospital stay patient remained stable Patient was initially admitted to the hospital for fever of unknown origin. Initially was thought to have urinary tract infection however urine culture was negative for any growth. Patient was kept on IV cefepime here in the hospital and CMV and EBV titers were sent. Given the fact that patient has history of renal transplant and does take immunosuppressant opportunistic infection was high on differential. Patient initially also had a CT which did have improvement all on IV hydration while here in the hospital. Patient at that time was referred over to tertiary care center where she had received a renal transplant for further care. Despite being on IV antibiotics and cultures being negative patient still continued to spike fever and thus was transferred to a higher level of care for further care. Patient's fever could be explained by drug-related fever versus other viral infection however at this time patient will be better served at a tertiary care center where she had her renal transplant. Once she was accepted at [facility] she was transferred there for further care. Vital Signs/Physical Exam: Temp Pulse Resp BP Pulse Ox 97.1 F 68 18 124/63 94 04/14/19 12:00 04/14/19 12:00 04/14/19 12:00 04/14/19 12:00 04/14/19 12:00 General: Alert, In no apparent distress HEENT: Atraumatic, PERRLA, EOMI Neck: Supple, JVD not distended Respiratory: Clear to auscultation bilaterally, Normal air movement Cardiovascular: Regular rate/rhythm, Normal S1 S2 Gastrointestinal: Normal bowel sounds, No tenderness Musculoskeletal: No tenderness Integumentary: No rashes Neurological: Normal speech, Normal tone, Normal affect Lymphatics: No axilla or inguinal lymphadenopathy Laboratory Data at Discharge: WBC 16.7 K/uL (4.3-10.9) H 04/13/19 10:53 Hgb 12.8 g/dL (12.0-15.0) 04/13/19 10:53 Hct 38.9 % (36.0-45.0) 04/13/19 10:53 Plt Count 233 K/uL (152-406) 04/13/19 10:53 PT 11.8 SECONDS (9.5-12.5) 04/13/19 00:50 INR 1.00 04/13/19 00:50 Sodium 136 mmol/L (136-145) 04/14/19 05:17 Potassium 3.9 mmol/L (3.5-5.1) 04/14/19 05:17 BUN 17 mg/dL (7-18) 04/14/19 05:17 Creatinine 1.01 mg/dL (0.55-1.3) 04/14/19 05:17 Glucose 87 mg/dL (74-106) 04/14/19 05:17 Phosphorus 1.9 mg/dL (2.5-4.9) L 04/14/19 05:17 Magnesium 2.3 mg/dL (1.8-2.4) D 04/14/19 05:17 Total Bilirubin 0.6 mg/dL (0.2-1.0) 04/13/19 00:50 AST 14 U/L (15-37) L 04/13/19 00:50 ALT 27 U/L (12-78) 04/13/19 00:50 Alkaline Phosphatase 98 U/L (45-117) 04/13/19 00:50 Home Medications: Calcitrol [Rocaltrol*] 1 cap PO DAILY 04/13/19 Calcium Carbonate 650 mg PO DAILY 04/13/19 Cyclosporine [Restasis] 1 drop EACH EYE BID 04/13/19 Famotidine [Pepcid*] 20 mg PO BIDAC 04/13/19 Glipizide [Glipizide ER] 1 tab PO DAILY 04/13/19 Metoprolol Succinate [Toprol Xl*] 75 mg PO BID 04/13/19 Mycophenolate Sodium [Myfortic] 1 tab PO BID 04/13/19 Omeprazole 1 cap PO BREAKFAST 04/13/19 Pravastatin Sodium 10 mg PO BEDTIME 04/13/19 Spironolactone 25 mg PO DAILY 04/13/19 cycloSPORINE [Sandimmune] 50 mg PO BID 04/13/19 predniSONE [Prednisone] 5 mg PO DAILY 04/13/19 Patient Discharge Instructions: Please f.u PCP and renal Transplant team once transfered to [facility] Diet: Regular Activity: Ad max
--- NOTE | 2019-04-14 17:32 | P.PN ---
Date of Service: 04/14/19 Vital Signs Temp Pulse Resp BP Pulse Ox 97.1 F 68 18 124/63 94 04/14/19 12:00 04/14/19 12:00 04/14/19 12:00 04/14/19 12:00 04/14/19 12:00 Medications Atorvastatin Calcium (Lipitor) 10 mg PO BEDTIME COUNT INCLUDES THE [facility] Stop: 05/13/19 21:01 Last Admin: 04/13/19 20:57 Dose: 10 mg Calcitriol (Rocaltrol) 0.25 mcg PO DAILY MENG Stop: 05/14/19 09:01 Last Admin: 04/14/19 08:24 Dose: 0.25 mcg Calcium Carbonate/Glycine (Oscal) 500 mg PO DAILY MENG Stop: 05/14/19 09:01 Last Admin: 04/14/19 08:23 Dose: 500 mg Clonidine HCl (Catapres-Tts 2) 0.2 mg TD EVERY 7TH DAY MENG Stop: 05/13/19 15:01 Last Admin: 04/13/19 15:37 Dose: 0.2 mg Famotidine (Pepcid) 20 mg PO BIDAC COUNT INCLUDES THE [facility] Stop: 05/13/19 16:31 Last Admin: 04/14/19 16:16 Dose: 20 mg Hydromorphone HCl (Dilaudid) 0.5 mg IV Q4H PRN PRN Reason: Pain scale 5-7 (Moderate) Stop: 05/13/19 14:12 Last Admin: 04/13/19 15:35 Dose: 0.5 mg Cefepime HCl (Maxipime 1 Gm/10 Ml Ivp) 10 mls @ 200 mls/hr IV Q12HR COUNT INCLUDES THE [facility] Stop: 05/13/19 09:01 Last Admin: 04/14/19 08:25 Dose: 10 mls Metoprolol Succinate (Toprol Xl) 75 mg PO BID MENG Stop: 05/13/19 21:01 Last Admin: 04/14/19 08:22 Dose: 75 mg Ondansetron HCl (Zofran) 4 mg IV Q6HP PRN PRN Reason: NAUSEA / VOMITING Stop: 05/13/19 04:09 Last Admin: 04/14/19 02:06 Dose: 4 mg Pantoprazole Sodium (Protonix Tab) 40 mg PO BREAKFAST COUNT INCLUDES THE [facility] Stop: 05/14/19 08:01 Last Admin: 04/14/19 08:21 Dose: 40 mg Prednisone (Deltasone) 5 mg PO DAILY COUNT INCLUDES THE [facility] Stop: 05/14/19 09:01 Last Admin: 04/14/19 08:23 Dose: 5 mg Sodium Chloride (Normal Saline Flush) 10 ml IV BID COUNT INCLUDES THE [facility] Stop: 05/13/19 09:01 Last Admin: 04/14/19 10:04 Dose: 10 ml Spironolactone (Aldactone) 25 mg PO DAILY COUNT INCLUDES THE [facility] Stop: 05/14/19 09:01 Last Admin: 04/14/19 08:22 Dose: 25 mg Microbiology Results 04/13/19 00:15 Catheterized Urine [place] Count - Preliminary <10,000 CFU/ML. 04/13/19 00:15 Catheterized Urine - Preliminary 04/12/19 23:40 Blood - Blood Aerobic Blood Culture - Preliminary No growth in 24 hours. 04/12/19 23:40 Blood - Blood Anaerobic Blood Culture - Preliminary No growth in 24 hours. 04/12/19 23:20 Blood - Blood Aerobic Blood Culture - Preliminary No growth in 24 hours. 04/12/19 23:20 Blood - Blood Anaerobic Blood Culture - Preliminary No growth in 24 hours. 04/12/19 23:32 Nasopharnyx Influenza Type A Antigen Screen - Final 04/12/19 23:32 Nasopharnyx Influenza Type B Antigen Screen - Final Assessment/ Plan: Nephrology CPS stable without CP or SOB. No acute events overnight. Feeling better today. Requesting to restart her immunosuppression. Vitals, medications, blood work and imaging reviewed in the chart. NAD. MMM. Neck supple. CTA. RRR. Soft Abd. No C/C/E. No rash. AAO. Normal Speech. A/ CANDIE, improving. Hypokalemia. CKD with proteinuria. 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 Hypocalcemia. HypoPO4. IFG. HTN with CKD. Acute cystitis. P/ Continue current POC and Medications. AM labs. Daily weight. No NSAIDs. Monitor lytes and replete as needed. Restart immunosuppression. Follow up cultures. Agree with abx. PO4 replacement as ordered.
[2019-04-14 18:30] VITALS: BP 125/65; TEMP 98.6
== END 2019-04-14 19:42 | disposition short-term general hospital (02) | DRG 864 ==
LOC: ER 22:45 → ERHOLD 04-13 04:08 → 2ND 04-13 06:01
PROVIDERS: ADMIT Hospitalist; ATTEND Family Medicine
DX: R50.9 Fever, unspecified (principal); Z94.0 Kidney transplant status; N17.9 Acute kidney failure, unspecified; R41.82 Altered mental status, unspecified; R53.1 Weakness; I10 Essential (primary) hypertension; E87.6 Hypokalemia; E83.51 Hypocalcemia; Z87.891 Personal history of nicotine dependence
CPT/HCPCS: 36415; 70450; 71045; 72125; 74176; 76377; 76705; 76770; 80048; 80076; 81003; 81015; 82962; 83605; 83735; 83880; 84100; 84145; 84484; 85025; 85610; 86644; 86664; 86665; 87040; 87086; 87088; 87804; 93005; 96361; 96365; 96367; 99285; J0360; J0692; J1170; J1650; J2405; J3475; J7030; J7512

== ENCOUNTER 2019-11-12 19:43 | Emergency (ER) | payer OTHER ==
--- OUTSIDE RECORDS SUMMARY | 2019-11-12 19:45 | XMS REPORT ---
:1955 [facility] Address [facility] [place] Dr. Mckeon [address] [place] [id number] Care Team Providers Name Role Phone Unavailable Unavailable Unavailable Problems This patient has no known problems. Allergies, Adverse Reactions, Alerts This patient has no known allergies or adverse reactions. Medications This patient has no known medications.
--- OUTSIDE RECORDS SUMMARY | 2019-11-12 19:46 | XMS REPORT | Summary of Care ---
:1955 Author Organization [facility] Address [address] [place] [id number] Care Team Providers Name Role Phone Shahida Kang MD Primary Care Provider Dilma Hernandez MD Unavailable Lynne Borjas MD Unavailable Vee Marte MD Unavailable Worker, Transplant Social Unavailable Unavailable Gwen Adler MD Unavailable Reason for Visit Reason Comments Diabetes Cough Depression Encounter Details Date Type Department Care Team Description 06/17/2019 Office Visit [facility] Family Shahida Kang Controlled type 2 diabetes mellitus with diabetic nephropathy, without long-term current use of insulin (Primary Dx); Medicine - Stanford Aguila MD Situational depression; [address] [place] [address] DR [address] hypertension; [address] [place], [place] Hypercholesterolemia; [place] [address] Medication monitoring encounter; [id number] Encounter for long-term (current) use of medications; [phone] Persistent cough; Other fatigue; Onychomycosis of toenail; Renal transplant, status post Allergies Active Allergy Reactions Severity Noted Date Comments Adhesive Tape-Silicones Rash High 01/28/2019 Codeine Nausea and/or Vomiting High 01/28/2019 Iodine And Iodide Containing Nausea and/or Vomiting 04/22/2019 Products Sirolimus (Bulk) Rash 02/03/2019 documented as of this encounter (statuses as of 06/20/2019) Medications Medication Sig Dispensed Refills Start Date End Date Status Lancets (ONE TOUCH Use as directed 100 Each 5 07/28/2014 Active ULTRASOFT LANCETS) [facility] [place] cycloSPORINE Place 1 Drop in 30 Each 5 07/13/2018 Active (RESTASIS) 0.05 % left eye every drops 12 (twelve) hours. cycloSPORINE 25 mg Take 2 capsules 180 capsule 11 01/14/2019 Active capsule by mouth every 12 (twelve) hours. Z94.0 calcium carbonate 650 Take 650 mg by 0 Active mg calcium (1,625 mg) mouth daily. tablet calcitriol 0.25 mcg Take 1 capsule 90 capsule 3 02/11/2019 Active capsuleIndications: by mouth daily. Kidney replaced by transplant PNV Comb Take 1 tablet by 90 tablet 3 02/11/2019 Active No.[id number] Acid mouth every (PRENATABS FA) 29-1 mg morning. Tab spironolactone 25 mg Take 1 tablet by 30 tablet 5 02/22/2019 Active tabletIndications: mouth daily. Essential hypertension, Edema, unspecified type mycophenolate sodium Take 2 tablets 180 tablet 2 03/09/2019 Active (MYFORTIC) 360 mg EC by mouth every tablet 12 (twelve) hours. Z94.0 GLIPIZIDE XL 5 mg 24 TAKE 1 TABLET BY 90 tablet 1 04/28/2019 Active hr tabletIndications: MOUTH DAILY WITH Controlled type 2 BREAKFAST diabetes mellitus with diabetic nephropathy, without long-term current use of insulin metoprolol succinate Take 1.5 tablets 270 tablet 3 05/02/2019 Active XL 50 mg 24 hr by mouth every tabletIndications: 12 (twelve) Non-intractable hours. vomiting with nausea, unspecified vomiting type lisinopril 5 mg Take 1 tablet by 30 tablet 11 05/02/2019 Active tabletIndications: mouth daily. Essential hypertension predniSONE 5 mg Take 0.5 tablets 30 tablet 2 05/02/2019 Active tabletIndications: by mouth daily. Renal transplant recipient nystatin 100,000 Take 5 mL by 240 mL 1 05/19/2019 Active unit/mL mouth 4 (four) suspensionIndications: times daily. Use Thrush for an additional 48hrs after the symptoms have resolved. benzonatate 100 mg Take 1 capsule 30 capsule 0 05/19/2019 Active capsuleIndications: by mouth 3 Persistent cough (three) times daily as needed for Cough. FAMOTIDINE 20 mg TAKE 1 TABLET BY 180 tablet 3 05/20/2019 Active tabletIndications: MOUTH TWICE Gastroesophageal DAILY reflux disease, esophagitis presence not specified PRAVASTATIN 10 mg TAKE 1 TABLET BY 90 tablet 3 05/20/2019 Active tabletIndications: MOUTH AT BEDTIME Other hyperlipidemia omeprazole 20 mg TAKE 1 CAPSULE 30 capsule 0 06/01/2019 Active capsule BY MOUTH EVERY MORNING WITH BREAKFAST. efinaconazole (JUBLIA) Apply to 4 mL 11 06/19/2019 Active 10 % topical affected solutionIndications: toenails daily Onychomycosis of toenail montelukast 10 mg Take 1 tablet by 30 tablet 5 06/19/2019 Active tabletIndications: mouth every Persistent cough evening. documented as of this encounter (statuses as of 06/20/2019) Active Problems Problem Noted Date Nausea & vomiting 04/14/2019 Urinary tract infection 01/28/2019 Closed right hip fracture 09/17/2018 Closed fracture of right hip, initial encounter 09/16/2018 Overview: Added automatically from request for surgery [id number] Situational mixed anxiety and depressive disorder 06/21/2018 Fracture of femoral neck, left, closed 06/04/2018 Obesity (BMI 30-39.9) 06/04/2018 Closed fracture of neck of femur 06/03/2018 Overview: Bilateral Osteoporosis, unspecified osteoporosis type, unspecified pathological 2017 fracture presence jail (current) use of systemic steroids 05/11/2018 Immunization counseling 04/14/2018 PMR (polymyalgia rheumatica) 04/14/2018 Low back pain without sciatica, unspecified back pain laterality, 04/14/2018 unspecified chronicity Renal cyst 03/22/2018 Overview: Two cysts of her transplanted kidney per US 03/11/2018 Muscle weakness 02/15/2018 Myalgia 02/15/2018 Immunosuppressive management encounter following kidney transplant 09/24/2017 Early cataracts, bilateral 06/19/2017 Dry eye syndrome, bilateral 06/19/2017 Refractive error 06/19/2017 Positive DUDLEY (antinuclear antibody) 1:80 01/08/2017 Atypical rash 01/08/2017 Well woman exam 10/09/2016 Encounter for screening mammogram for breast cancer 10/09/2016 Need for Tdap vaccination 10/09/2016 Screening for colon cancer 10/09/2016 Essential hypertension 2013 Overview: ICD10 Diagnosis Term Control Room Technician Utility Need for prophylactic immunotherapy 2013 Encounter for long-term (current) use of other medications 2013 Hyperlipidemia 11/03/2012 Controlled type 2 diabetes mellitus with chronic kidney disease, 09/20/2012 unspecified CKD stage, unspecified 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 insulin use status Overview: ICD10 Diagnosis Term Control Room Technician Utility Kidney replaced by transplant 09/19/2011 Renal transplant 05/22/2010 Cholelithiasis 03/07/2010 GERD (gastroesophageal reflux disease) 03/07/2010 History of end stage renal disease 04/16/2007 Generalized osteoarthrosis, unspecified site 12/01/2006 Hyperparathyroidism 12/01/2006 documented as of this encounter (statuses as of 06/20/2019) Resolved Problems Problem Noted Date Resolved Date Local infection of wound 2010 07/08/2016 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 05/02/20102015 disease stage I through stage IV, or unspecified Other reasons for seeking consultation 06/16/2008 04/11/2010 Overview: Mammogram Renal dialysis status 06/16/2008 04/11/2010 Overview: On peritoneal dialysis Osteoporosis 06/16/2008 04/11/2010 Overview: ICD10 Diagnosis Term Control Room Technician Utility Essential hypertension 04/16/2007 04/11/2010 Overview: ICD10 Diagnosis Term Control Room Technician Utility Renal failure 12/21/2006 04/11/2010 Overview: ICD10 Diagnosis Term Control Room Technician Utility Hypoparathyroidism 12/01/2006 12/01/2006 Hypercalcemia 10/14/2006 04/11/2010 documented as of this encounter (statuses as of 06/20/2019) Immunizations Name Administration Dates Next Due H1n1 Vaccine 11/01/2009 Hep B, Adol or Pedi Dosage 03/07/2010, 08/30/2009, 08/02/2009 Influenza Virus Vaccine 08/08/2013, 09/03/2012, 09/19/2011, 10/25/2010, 08/30/2009 Influenza Virus Vaccine (3+ yrs) 08/14/2014 Influenza Virus Vaccine Quad .5 mL IM 09/21/2018 6+ MO Influenza Virus Vaccine Quad ID [id number] 09/10/2017 (Deferred: Vaccine YRS Unavailable), 08/23/2015 Influenza Virus Vaccine Quad IM 3+ 09/10/2017 YRS Influenza Virus Vaccine Quad IM 09/04/2016 Multi-dose 6+ MO Pneumococcal Polysaccharide, PPSV23 10/04/2009 (PNEUMOVAX) Tdap 10/09/2016 documented as of this encounter Social History Tobacco Use Types Packs/Day Years Used Date Never Smoker Smokeless Tobacco: Never Used Alcohol Use Drinks/Week oz/Week Comments No 0 Standard drinks or equivalent 0.0 Sex Assigned at Date Recorded Not on file Job Start Date Occupation Industry Not on file Not on file Not on file Travel History Travel Start Travel End No recent travel history available. documented as of this encounter Last Filed Vital Signs Vital Sign Reading Time Taken Comments Blood Pressure 135/80 06/17/2019 3:19 PM CDT Pulse 78 06/17/2019 3:19 PM CDT Temperature 36.8 C (98.3 F) 06/17/2019 3:19 PM CDT Respiratory Rate - - Oxygen Saturation - - Inhaled Oxygen Concentration - - Weight 64 kg (141 lb) 06/17/2019 3:19 PM CDT Height 152.4 cm (5') 06/17/2019 3:19 PM CDT Body Mass Index 27.54 06/17/2019 3:19 PM CDT documented in this encounter Patient Instructions Patient InstructionsColShahida vaughn MD - 06/17/2019 3:15 PM CDT Chronic Cough withUncertain Cause (Adult) Everyone has had a cough as part of the common cold, flu, or bronchitis. This kind of cough occurs along with an achy feeling, low-grade fever, nasal and sinus congestion, and a scratchy or sore throat. This usually gets better in 2 to 3 weeks. A cough that lasts longer than 3 weeks may be due to other causes. If your cough does not improve over the next 2 weeks, further testing may be needed. Follow up with your healthcare provider as advised. Cough suppressants may be recommended. Based on your exam today,the exact cause of your cough is not certain. Below are some common causes for persistent cough. Smoker's cough Smokers cough doesnt go away. If you continue to smoke, it only gets worse. The cough is from irritation in the air passages. Talk to your healthcare provider about quitting. Medicines or nicotine-replacement products, like gum or the patch, may make quitting easier. Postnasal drip A cough that is worse at night may be due to postnasal drip. Excess mucus in the nose drains from the back of your nose to your throat. This triggers the cough reflex. Postnasal drip may be due to a sinus infection or allergy. Common allergens include dust, tobacco smoke (both inhaled and secondhand smoke), environmental pollutants, pollen, mold, pets, cleaning agents, room deodorizers , and chemical fumes. Rteu-ggf-qycpyax antihistamines or decongestants may be helpful for allergies. A sinus infection may requires antibiotic treatment. See your healthcare provider if symptoms continue. Medicines Certain prescribed medicines can cause a chronic cough in some people: VIMAL inhibitors for high blood pressure. These include benazepril, captopril, enalapril, fosinopril, lisinopril, quinapril, ramipril, and others. Beta-blockers for high blood pressure and other conditions. These include propranolol, atenolol, metoprolol, nadolol, and others. Let your healthcare provider know if you are taking any of these. Asthma Cough may be the only sign of mild asthma. You may have tests to find out if asthma is causing your cough. You may also take asthma medicine on a trial basis. Acid reflux (heartburn, GERD) The esophagus is the tube that carries food from the mouth to the stomach. A valve at its lower end prevents stomach acids from flowing upward. If this valve does not work properly, acid from the stomach enters the esophagus. This may cause a burning pain in the upper abdomen or lower chest, belching,or cough. Symptoms are often worse when lying flat. Avoid eating or drinking before bedtime. Try using extra pillows to raise your upper body, or place 4- inch blocks under the head of your bed. You maytry an quxu-ngy-prsebyy antacid or an acid-blocking medicine such as famotidine, cimetidine, ranitidine, esomeprazole, lansoprazole, or omeprazole. Stronger medicines for this condition can be prescribed by your healthcare provider. Follow-up care Follow up with your healthcare provider, or as advised, if your cough does not improve. Further testing may be needed. Note: If an X-ray was taken, a specialist will review it. You will be notified of any new findings that may affect your care. When to seek medical advice Call your healthcare provider right away if any of these occur: Mild wheezing or difficulty breathing Fever of 100.4F (38C) or higher, or as directed by your healthcare provider Unexpected weight loss Coughing up large amounts of colored sputum Night sweats (sheets and pajamas get soaking wet) Call 911 Call 911 if any of these occur: Coughing up blood Moderate to severe trouble breathing or wheezing Date Last Reviewed: 08/05/201519995078-[address] [employer] [place] [address], [place] [address]. All rights reserved. This information is not intended as a substitute for professional medical care. Always follow your healthcare professional's instructions. Tos, Crnica [Cough, Uncertain Cause, Adult] Todos hemos tenido tos power parte de un resfriado, gabriella gripe o gabriella bronquitis. Esta clase de tos se presenta junto con sensacin de dolor, fiebre ligera, congestin nasal, congestin de los senos paranasales e irritacin o dolor de garganta. La situacin mejora en dos o inocencio semanas. Gabriella tos que persiste m s de inocencio semanas suele tener otras causas. En funcin del examen de santo, la causa exacta de bhandari tos es incierta. A continuacin se presentan algunas de las causas ms comunes de la tos persistente. Si la tos no mejora bg las prximas dos semanas, es posible que sea necesario realizar ms exmenes. Cumpla el seguimiento con bhandari m dicocomo se le indique. Tos Del Fumador La tos del fumador no desaparece. Si contina fumando, empeorar. La tos se debe a la irritacin de las vas respiratorias. Hable con bhandari mdico acerca de dejar de fumar. Los parches, chicles, inhaladores, aerosoles nasales con nicotina u otros mtodos pueden hacerlo ms sencillo. Goteo Posnasal La tos que empeora por las noches puede deberse al "goteo posnasal". El exceso de moco en la nariz drena desde la parte posterior de la nariz hacia la garganta y provoca el reflejo de toser. Es probable que se deba a gabriella infecci n de senos paranasales o gabriella alergia. Las causas de alergias comunes incluyen: polvo, humo, moho, polen, mascotas, artculos de limpieza, desodorantes ambientales y gases qumicos. Los antihistamnicos o los descongestivos de venta sin receta pueden resultar tiles paralas alergias. Denise se necesita tratamiento con antibiticos para gabriella infeccin de senos paranasales. Visite a bhandari mdico si los sntomas continan. Medicamentos Ciertos medicamentos de venta con receta pueden provocar tos crnica en algunas personas: Inhibidores de la ECA para la hipertensin (estos incluyen: Lotensin ( benazepril), Capoten (captopril), Vasotec (enalapril), Monopril (fosinopril), Prinivil y Zestril (lisinopril), Accupril (quinapril), Altace (ramipril), entre otros) Beta bloqueadores para hipertensin y otros trastornos (estos incluyen: Inderal (propranolol), Tenormin (atenolol), Lopressor (metoprolol), Corgard ( nadolol), entre otros) Informe a bhandari mdico si julius alguno de estos medicamentos. Asma La tos puede ser el sol signo del asma leve. Bhandari mdico puede realizar ex menes de pulmn para averiguar si el asma es la causa de la tos. Bhandari respuesta a gabriella prueba de medicamentos contra el asma tambin puede ayudar a realizar un diagnstico. Reflujo cido (Acidez) El esfago es el conducto que lleva los alimentos desde la boca hasta el est kim. En bhandari extremo inferior hay gabriella vlvula que isidro que los cidos del est kim fluyan hacia arriba. Si esta vlvula no funciona jeremiah, el cido del est kim ingresa en el esfago. Del Sol puede provocar un dolor intenso en la parte superior del abdomen o la parte baja del pecho, eructos, o tos. Los sntomas suelen empeorar cuando se recuesta. Evite comer o beber antes de irse a dormir. Pruebe usar ms almohadas para elevar la parte superior del cuerpo o coloque bloques de 10 cm (4 pulgadas) debajo de la cabecerade la cama. Puede probar los anticidos de venta sin receta (Tums, Mylanta) o un medicamento que bloquee el cido (Pepcid AC, Tagamet HB, Zantac 75 o Prilosec OTC). Bhandari mdico puede recetarle medicamentos ms yolis para abndar trastorno. Seguimiento con bhandari mdico power se le indique si la tos no mejora bg las prximas dos semanas. Es posible que sea necesario realizar ms exmenes. [NOTA: Si se chao gabriella radiografa otro especialista la revisar. Se le notificar cualquier nuevo resultado que pueda afectar bhandari atencin.] Busque Prontamente Atencin Mdica si algo de lo siguiente ocurre: Sibilancias o dificultad para respirar Fiebre de 100.4F (38C) o ms izabel, o power le haya indicado bhandari proveedor de atencin mdica Prdida inesperada de peso Tos con gran cantidad de esputo con color Tos con jonathan Sudoracin nocturna (empapar las sbanas y el pijama) Date Last Reviewed: 08/05/201519992109-6137 [employer]. [address] [place] [address], [place] [address]. Todos los derechos reservados. Esta informacin no pretende sustituir la atencin mdica profesional. Slo bhandari mdico puede diagnosticar y tratar un problema de janice. documented in this encounter Progress Notes Shahida Kang MD - 06/17/2019 3:15 PM CDT Cc: Chief Complaint Patient presents with Diabetes Depression HPI Juhi Aguilar is a 64 year old female who presents today for DM2 and depression. She is also complaining of a cough. She is accompanied by two of her daughters. She is Bulgarian-speaking and prefers her daughter Mya to serve as admitted attorneys (declines use of a certified admitted attorneys). DM2 follow-up: Medication compliance: Good. Dietary compliance: Fair. Exercise frequency: None. Last Two A1C Results ([facility]/LC, POCT, [facility]) Recent Labs 07/30/18 1012 01/28/19 1837 HGBA1C 6.1* 6.2* Glucose readings: <130 fasting. Hypoglycemic episodes: None. Associated symptoms: None. Denies chest pain, visual changes, paresthesia of extremities, foot problems, polyuria, or polydipsia. Last Ophthalmology visit: 07/13/2018. Depression: C/o depression symptoms for the past few weeks. Severity: Mild. Progression: Waxes and wanes Thepatient's depression symptoms include: See PHQ-9 responses below. Associated symptoms: Fatigue, doesn't feel physically well at times. Denies SI, HI, manic symptoms, delusions, or hallucinations. Past mental health diagnoses: None. Past treatments: None. Psychosocial stressors : Son earlier this year, health issues. PHQ-2/PHQ-9 Little interest or pleasure in doing things: (!) Several days Feeling down, depressed, or hopeless: (!) Several days PHQ-2 Score (_/6): (!) 2 PHQ-2 Scoring Interpretation: Negative screen Trouble falling or staying asleep, or sleeping too much: Not at all Feeling tired or having little energy: Several days Poor appetite or overeating: Several days Feeling bad about yourself - or that you are a failure or have let yourself or your family down: Notat all Trouble concentrating on things, such as reading the newspaper or watching television: Several days Moving or speaking so slowly that other people could have noticed. Or the opposite - being so fidgety or restless that you have been moving around a lot more than usual: Not at all Thoughts that you would be better off , or of hurting yourself in some way: Not at all PHQ-9: TOTAL SCORE: 5 If you checked off any problems, how difficult have these problems made it for you to do your work, take care of things at home, or get along with other people ?: Somewhat difficult Cough Cough characteristics: Productive Sputum characteristics: Clear Severity: Moderate Onset quality: Sudden Duration: 6 weeks Timing: Intermittent Progression: Waxing and waning Chronicity: Recurrent Smoker: no Context: exposure to allergens Context: not sick contacts Relieved by: Nothing Ineffective treatments: Cough suppressants Associated symptoms: rhinorrhea Associated symptoms: no chest pain, no chills, no diaphoresis, no ear fullness, no ear pain, no eye discharge, no fever, no headaches, no myalgias, no rash, no shortness of breath, no sinus congestion,no sore throat, no weight loss and no wheezing Associated symptoms comment: Sneezing occasionally Risk factors: no recent travel Allergies Reynaga is allergic to adhesive tape-silicones; codeine; iv contrast [iodine and iodide containing products]; and sirolimus (bulk). Medications Outpatient Medications Prior to Visit Medication Sig Dispense Refill omeprazole 20 mg capsule TAKE 1 CAPSULE BY MOUTH EVERY MORNING WITH BREAKFAST. 30 capsule 0 FAMOTIDINE 20 mg tablet TAKE 1 TABLET BY MOUTH TWICE DAILY 180 tablet 3 PRAVASTATIN 10 mg tablet TAKE 1 TABLET BY MOUTH AT BEDTIME 90 tablet 3 benzonatate 100 mg capsule Take 1 capsule by mouth 3 (three) times daily as needed for Cough. 30capsule 0 nystatin 100,000 unit/mL suspension Take 5 mL by mouth 4 (four) times daily. Use for an additional 48hrs after the symptoms have resolved. 240 mL 1 lisinopril 5 mg tablet Take 1 tablet by mouth daily. 30 tablet 11 metoprolol succinate XL 50 mg 24 hr tablet Take 1.5 tablets by mouth every 12 (twelve) hours. 270 tablet 3 predniSONE 5 mg tablet Take 0.5 tablets by mouth daily. 30 tablet 2 GLIPIZIDE XL 5 mg 24 hr tablet TAKE 1 TABLET BY MOUTH DAILY WITH BREAKFAST 90 tablet 1 mycophenolate sodium (MYFORTIC) 360 mg EC tablet Take 2 tablets by mouth every 12 (twelve) hours. Z94.0 180 tablet 2 spironolactone 25 mg tablet Take 1 tablet by mouth daily. 30 tablet 5 calcitriol 0.25 mcg capsule Take 1 capsule by mouth daily. 90 capsule 3 PNV Comb No.96-Ziru-Bfihv Acid (PRENATABS FA) 29-1 mg Tab Take 1 tablet by mouth every morning. 90 tablet 3 calcium carbonate 650 mg calcium (1,625 mg) tablet Take 650 mg by mouth daily. cycloSPORINE 25 mg capsule Take 2 capsules by mouth every 12 (twelve) hours. Z94.0 180 capsule 11 cycloSPORINE (RESTASIS) 0.05 % drops Place 1 Drop in left eye every 12 ( twelve) hours. 30 Each 5 Lancets (ONE TOUCH ULTRASOFT LANCETS) [facility] [place] Use as directed 100 Each 5 No facility-administered medications prior to visit. Histories Past Medical History: Diagnosis Date Anemia associated with chronic renal failure Blood transfusion, without reported diagnosis 05/02/2010 during kidney transplant Cholelithiasis 08/2008 Diabetes mellitus ESRD on dialysis 12/24/2006 HTN (hypertension) 12/2006 Hyperparathyroidism 09/2006 Hypoparathyroidism 12/01/2006 Kidney disease SURAJ (obstructive sleep apnea) Osteoporosis 04/2007 Positive DUDLEY (antinuclear antibody) 01/08/2017 Reflux esophagitis Renal cyst 03/22/2018 Two cysts of her transplanted kidney per US 03/11/2018 Renal osteodystrophy 03/2007 Situational mixed anxiety and depressive disorder 06/21/2018 Past Surgical History: Procedure Laterality Date BIOPSY Bilateral 10/21/2017 Surgeon: Vee Marte MD; [facility] COLONOSCOPY Left 11/06/2016 Surgeon: Zhane Alonso MD; Location: [facility] OR Location DIRECT LARYNGOSCOPY Bilateral 10/21/2017 Surgeon: Vee Marte MD; [facility]: [facility] HIP CLOSED REDUCTION WITH PERCUTANEOUS PINNING Left 06/05/2018 Surgeon: Micheline Trivedi MD; Location: [facility] HIP HEMIARTHROPLASTY Right 09/17/2018 Surgeon: Eric Le MD; Location: [facility] INCISION AND DRAINAGE OF ABSCESS 02/06/2012 Surgeon:YAAKOV CHAMBERLAIN; [facility] INTRAPERITONEAL CATHETER PLACEMENT 10/2007 OTHER 10/2006 Hypothyroid surgery PARATHYROIDECTOMY 10/2006 REMOVAL OF FOREIGN BODY 02/06/2012 TRANSPLANTATION OF KIDNEY 05/02/2010 Social History Socioeconomic History Marital status: Spouse name: Shelton Aguilar Number of children: 5 Years of education: 1 Highest education level: Not on file Occupational History 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 Employer: [employer] Comment: never worked Social Needs Financial resource strain: Not on file Food insecurity: Worry: Not on file Inability: Not on file Transportation needs: Medical: Not on file Non-medical: Not on file Tobacco Use Smoking status: Never Smoker Smokeless tobacco: Never Used Substance and Sexual Activity Alcohol use: No Alcohol/week: 0.0 oz Drug use: No Sexual activity: Yes Partners: Male control/protection: Post-menopausal Lifestyle Physical activity: Days per week: Not on file Minutes per session: Not on file Stress: Not on file Relationships Social connections: Talks on phone: Not on file Gets together: Not on file Attends samaritan service: Not on file Active member of club or organization: Not on file Attends meetings of clubs or organizations: Not on file Relationship status: Not on file Intimate partner violence: Fear of current or ex partner: Not on file Emotionally abused: Not on file Physically abused: Not on file Forced sexual activity: Not on file Other Topics Concern Service No Blood Transfusions Yes Comment: 2 units - last 2006 Caffeine Concern No Occupational Exposure No Hobby Hazards No Sleep Concern No Stress Concern No Weight Concern No Special Diet Yes Comment: renal Back Care Not Asked Exercise Not Asked Bike Helmet Not Asked Seat Belt Yes Self-Exams Not Asked Social History Narrative , 5 children Homemaker Lives with her Family History Problem Relation Age of Onset Cancer Mother unknown Non-contributory Father Non-contributory Brother brothers x8 - alive - healthy 58 y/o-30's Arthritis NoFHx Asthma NoFHx defects NoFHx Breast Cancer NoFHx Colon Cancer NoFHx Ovarian Cancer NoFHx Uterine Cancer NoFHx Depression NoFHx Genetic NoFHx Diabetes NoFHx Heart NoFHx High cholesterol NoFHx Hypertension NoFHx Mental retardation NoFHx Neurological NoFHx Osteoporosis NoFHx Psychiatry NoFHx Other - see comments NoFHx Review of Systems Constitutional: Positive for fatigue. Negative for chills, diaphoresis, fever and weight loss. HENT: Positive for rhinorrhea. Negative for ear pain and sore throat. Eyes: Negative. Negative for discharge. Respiratory: Positive for cough. Negative for shortness of breath and wheezing. Cardiovascular: Negative. Negative for chest pain. Gastrointestinal: Negative. Genitourinary: Negative. Musculoskeletal: Negative. Negative for myalgias. Skin: Negative for rash. + toenail changes, wants to restart Jublia b/c it helped her in the past Neurological: Negative. Negative for headaches. Psychiatric/Behavioral: Positive for dysphoric mood. Endocrine: Endocrine negativeNegative for weight loss. Vital Signs BP 135/80 (BP Location: Left arm, Patient Position: Sitting, BP CUFF SIZE: Adult Large) | Pulse 78| Temp 36.8 C (98.3 F) (Tympanic) | Ht 5' (1.524 m ) | Wt 141 lb (64 kg) | LMP 11/23/2005 (LMPUnknown) | BMI 27.54 kg/m Physical Exam Constitutional: She is oriented to person, place, and time. She appears well- developed and well-nourished. HENT: Right Ear: Tympanic membrane and ear canal normal. Left Ear: Tympanic membrane and ear canal normal. Nose: Mucosal edema present. No rhinorrhea. Mouth/Throat: Mucous membranes are normal. No posterior oropharyngeal erythema. + Cobblestoning of the OP Eyes: Pupils are equal, round, and reactive to light. Conjunctivae and EOM are normal. No scleral icterus. Neck: Neck supple. No JVD present. No thyromegaly present. Cardiovascular: Normal rate, regular rhythm, normal heart sounds and intact distal pulses. Exam reveals no gallop and no friction rub. No murmur heard. Pulmonary/Chest: Effort normal and breath sounds normal. Abdominal: Soft. Bowel sounds are normal. She exhibits no distension and no mass. There is no tenderness. Musculoskeletal: She exhibits no edema. Diabetic foot exam: Sensory exam of the foot is abnormal. Monofilament exam with sensation Right: 5/5, Left: 5/5. Lesions and ulcers absent. Peripheral pulses present 2+. Thickening and discoloration of the great toenails. Lymphadenopathy: She has no cervical adenopathy. Neurological: She is alert and oriented to person, place, and time. She has normal reflexes. Skin: Skin is warm and dry. No rash noted. No pallor. Psychiatric: She has a normal mood and affect. Her speech is normal and behavior is normal. Judgmentand thought content normal. Cognition and memory are normal. She expresses no suicidal ideation. Nursing note and vitals reviewed. Assessment/Plan Juhi was seen today for diabetes and depression. Diagnoses and all orders for this visit: Controlled type 2 diabetes mellitus with diabetic nephropathy, without long- term current use of insulin Continue current anti-diabetic medication(s). Reviewed the principles of following a diabetic diet including the concept of glycemic index. Exercise regularly. Self monitor glucose once daily beforebreakfast and bring record to each visit. See the Yard Laborer at least annually for diabetic eye exam. See the Airplane Technician for routine foot care and diabetic shoes if appropriate. - GLYCOSYLATED HEMOGLOBIN (A1C); Standing - LIPID PANEL (12006)(TOTAL CHOLESTEROL, TRIGLYCERIDES, HDL); Standing - COMP. METABOLIC PANEL (84999); Standing Situational depression Discussed the medication treatment options for the patient's depression. She declined treatment including medication and counseling. She says her sxs are mild and she prefers to deal with her sxs on her own. - THYROID STIMULATING HORMONE; Standing Essential hypertension Bp is close to goal of <130/<80. Continue current medication(s). Low sodium diet/DASH diet.Exercise regularly. The patient was instructed to self monitor her blood pressure once daily varying the times when it is checked and to bring the record of readings to each office visit. The patientshould follow- up sooner if the blood pressure is trending >/=130/80. - THYROID STIMULATING HORMONE; Standing - COMP. METABOLIC PANEL (23152); Standing Hypercholesterolemia Continue current lipid-lowering pharmacotherapy. Low fat, low cholesterol diet was recommended/reviewed. Exercise regularly. - LIPID PANEL (73895)(TOTAL CHOLESTEROL, TRIGLYCERIDES, HDL); Standing - COMP. METABOLIC PANEL (35844); Standing Medication monitoring encounter, Encounter for long-term (current) use of medications - GLYCOSYLATED HEMOGLOBIN (A1C); Standing - THYROID STIMULATING HORMONE; Standing - LIPID PANEL (79171)(TOTAL CHOLESTEROL, TRIGLYCERIDES, HDL); Standing - COMP. METABOLIC PANEL (98973); Standing Persistent cough Imaging as noted. Her cough is likely due to allergies. Trial of montelukast. If her cough persists I will have her f/u with her ENT physician and a Entry Specialists. - XR CHEST 2 VW; Future - montelukast 10 mg tablet; Take 1 tablet by mouth every evening. Fatigue The cause of the patient's fatigue is unclear. The patient was reassured that fatigue is common anddoes not always represent an active disease process. It may be related to stress, depression, beingoverweight, not getting enough exercise, not getting enough sleep, undiagnosed sleep apnea, or an as-yet unknown medical problem that may evolve over time. I have suggested observation for worsening orother new symptoms such as pain, fever or weight loss, running a few tests as ordered, considering alow dose SSRI antidepressant medication as treatment for nonspecific fatigue, reducing weight with silvia healthy, balanced diet, reducing stress where possible, getting more rest and sleep, and starting an exercise program. The patient was instructed to follow up if symptoms persist or worsen. - GLYCOSYLATED HEMOGLOBIN (A1C); Standing - COMP. METABOLIC PANEL (63837); Standing - THYROID STIMULATING HORMONE; Standing Onychomycosis of toenail We discussed the patient's treatment options and the patient prefers a trial of topical nail antifungal nail lacquer given this worked well for her in the past and concern about the possible hepatotoxicity of oral antifungals. I will monitor the patient's nail appearance every few months until the infection is cleared. - efinaconazole (JUBLIA) 10 % topical solution; Apply to affected toenails daily x 48 weeks Renal transplant, status post Management per Nephrology/Transplant Medicine. Follow-up with Nephrology/ Transplant Medicine as scheduled/planned. Plan of care, desired health behaviors, goals, Ddx, and any prescribed medications were discussed with the patient. This visit did not involve counseling and coordination that comprised more than 50% of the visit time. Education resources and self-management tools were provided and reviewed with the AVS. Patient/guardian/family verbalized understanding and agrees to the plan of care. Barriers tocare: None. Ability to manage care: Good. Advanced care planning (living will) information was not given/offered to the patient to review for discussion at a future visit. If applicable, the [facility] database was accessed to review any controlled substance prescription claims data. If the patient is taking prescribed medications, the [employer] prescription claims data in [facility] was reviewed to assess patient compliance with the medication treatment plan. Follow-up: Return in about 4 months (around 10/18/2019) for diabetic check. Follow-up sooner if any problems or concerns. Scribe Attestation Joanne Parra , am scribing for, and in the presence of, Shahida Kang MD who performed the services described here-in. Joanne Valdes, June 17, 2019, 3:43 PM Physician Attestation Fidel, Shahida Kang MD, personally performed the services described in this documentation , as scribed by, Joanne Valdes in my presence and it is both accurate and complete. Shahida Kang MD June 17, 2019, 3:43 PM documented in this encounter Plan of Treatment Date Type Specialty Care Team Description 06/21/2019 Haz Tech Visit Family Medicine Shahida Kang MD [address] [place] [address] [place] [phone] Lab, Adc Fam Pob I 06/28/2019 Office Visit Obstetrics & Gynecology Lynnette Suh MD [address] [place] [address] [address] [place], [place] [address] 08/18/2019 Office Visit Dermatology Licha Mtz MD [address] [place], [place] [address] 08/19/2019 Appointment Radiology Familia Nava [address] [place] [address] [place] [address] [phone] 10/14/2019 Office Visit Family Medicine Shahida Kang MD [address] [place] [address] [place] [address] [phone] 10/28/2019 Office Visit Orthopedic Surgery Eric Le MD [address] [place] [address] [phone] 11/10/2019 Office Visit Nephrology Dilma Hernandez MD [address] [place] [address] [phone] 11/18/2019 Office Visit Endocrinology Diabetes & Familia N[facility] Metabolism [address] [place] [address] [place] [address] [phone] Name Type Priority Associated Diagnoses Order Schedule GLYCOSYLATED HEMOGLOBIN LAB Routine Controlled type 2 1 Occurrences starting (A1C) diabetes mellitus with 06/17/2019 until diabetic nephropathy, 08/16/2019 without long-term current use of insulin Medication monitoring encounter Encounter for long-term (current) use of medications THYROID STIMULATING LAB Routine Situational depression 1 Occurrences starting HORMONE Essential hypertension 06/17/2019 until Medication monitoring 08/16/2019 encounter Encounter for long-term (current) use of medications LIPID PANEL LAB Routine Controlled type 2 1 Occurrences starting (41381)(TOTAL diabetes mellitus with 06/17/2019 until CHOLESTEROL, diabetic nephropathy, 08/16/2019 TRIGLYCERIDES, HDL) without long-term current use of insulin Hypercholesterolemia Medication monitoring encounter Encounter for long-term (current) use of medications COMP. METABOLIC PANEL LAB Routine Controlled type 2 1 Occurrences starting (62761) diabetes mellitus with 06/17/2019 until diabetic nephropathy, 08/16/2019 without long-term current use of insulin Essential hypertension Hypercholesterolemia Medication monitoring encounter Encounter for long-term (current) use of medications XR CHEST 2 VW IMAGING Routine Persistent cough Expected: 06/17/2019, Expires: 06/17/2020 Health Maintenance Due Date Last Done Comments Zoster Recombinant Vaccine 2006 (SHINGRIX) (1 of 2) PNEUMOCOCCAL 0-64 YEARS COMBINED 10/04/2010 10/04/2009 SERIES (2 of 3 - PCV13) PAP SMEAR 04/26/2019 04/26/2014, 01/22/2010, 02/18/2008, Additional history exists EYE EXAM 07/13/2019 07/13/2018, 07/13/2018, 06/19/2017, Additional history exists INFLUENZA VACCINE 07/24/2019 09/21/2018, 09/10/2017, 09/04/2016, Additional history exists FOOT EXAM 07/30/2019 07/30/2018, 07/30/2018, 07/30/2018, Additional history exists URINE MICROALBUMIN 07/30/2019 07/30/2018, 08/14/2017, 01/02/2017, Additional history exists HgA1C 07/31/2019 01/28/2019, 07/30/2018, 05/29/2018, Additional history exists MAMMOGRAM 11/10/2019 11/10/2018, 10/28/2017, 10/13/2016, Additional history exists LDL-C 02/04/2020 02/03/2019, 04/29/2018, 11/10/2017, Additional history exists CREATININE (SERUM) 05/18/2020 05/18/2019, 05/02/2019, 04/16/2019, Additional history exists DTaP,Tdap,and Td Vaccines (2 - Td) 10/09/2026 10/09/2016 COLONOSCOPY 11/06/2027 11/06/2017 HEPATITIS C (HCV) SCREEN Completed 05/02/2010, 03/07/2010, 12/06/2009, Additional history exists documented as of this encounter Implants Implanted Type Area Mortar Maker Device Shelf Model / Identifier Expiration Serial / Lot Date Bipolar Head, Seaview Uhr Bipolar [id number] #[id number] - S0 BIPOLAR Right: Dorota 12/04/2022 UH1-42-26 / Implanted: Qty: 1 on 09/17/2018 by Eric Le MD at [facility] head Hip 0 / [id number] Head, Dorota V40 Cocr Lfit 26mm/+4 #[id number] - S0 Head Right: Dorota 09/29/2022 6260-9-226 / Implanted: Qty: 1 on 09/17/2018 by Eric Le MD at [facility] Hip 0 / [id number] Screw, Synthes 6.5mm Rachel 32mm Thrd 70mm #208.436 - [id number] SCREW Left: Synthes 208.436 / Implanted: Qty: 1 on 06/05/2018 by Micheline Trivedi MD at [facility] Hip 208.436 / 0 Screw, Synthes 6.5mm Rachel 16mm Thrd 70mm #208.409 - S208.409 SCREW Left: Synthes 208.409 / Implanted: Qty: 2 on 06/05/2018 by Micheline Trivedi MD at [facility] Hip 208.409 / 0 Screw, Synthes 7.3mm Rachel 16mm Thrd/70mm #208.870 - [id number] SCREW Left: Synthes 208.870 / Implanted: Qty: 1 on 06/05/2018 by Micheline Trivedi MD at [facility] Hip 208.870 / 0 Stem, Dorota Size 3 Accolade Ii 127deg #[id number] - S0 Stem Right: Seaview 04/14/2023 [id number] / Implanted: Qty: 1 on 09/17/2018 by Eric Le MD at [facility] Hip 0 / [id number] Washer, Synthes 13.0 Mm #219.99 - S219.99 WASHER Left: Synthes 219.99 / Implanted: Qty: 3 on 06/05/2018 by Micheline Trivedi MD at [facility] Hip 219.99 / 0 documented as of this encounter Results Not on filedocumented in this encounter Visit Diagnoses Diagnosis Controlled type 2 diabetes mellitus with diabetic nephropathy, without long- term current use of insulin - Primary Situational depression Essential hypertension Unspecified essential hypertension Hypercholesterolemia Pure hypercholesterolemia Medication monitoring encounter Encounter for therapeutic drug monitoring Encounter for long-term (current) use of medications Encounter for long-term (current) use of other medications Persistent cough Cough Other fatigue Onychomycosis of toenail Dermatophytosis of nail Renal transplant, status post documented in this encounter Insurance Payer Benefit Plan / Subscriber ID Effective Phone Address Type Group Dates [facility] [id number] 2016-Matthew [phone] [address]MO HEALTH [employer] HEALTH CHOICE nt 86 [id number] [place] [address] documented as of this encounter Advance Directives Type Date Recorded Patient Golf Teacher Explanation Advance Directives and Living Will Power of Head Screen Worker
--- OUTSIDE RECORDS SUMMARY | 2019-11-12 19:46 | XMS REPORT | Summary of Care ---
:1955 Author Organization [facility] Address [address] [place] [id number] Care Team Providers Name Role Phone Shahida Kang MD Primary Care Provider Dilma Hernandez MD Unavailable Lynne Borjas MD Unavailable Vee Marte MD Unavailable Worker, Transplant Social Unavailable Unavailable Gwen Adler MD Unavailable Reason for Visit Reason Comments Refill Request Encounter Details Date Type Department Care Team Description 06/21/2019 Telephone [facility] Family Shahida Kang MD Refill Request Medicine - [address] [place] [address] [place] [address] Allergies Active Allergy Reactions Severity Noted Date Comments Adhesive Tape-Silicones Rash High 01/28/2019 Codeine Nausea and/or Vomiting High 01/28/2019 Iodine And Iodide Containing Nausea and/or Vomiting 04/22/2019 Products Sirolimus (Bulk) Rash 02/03/2019 documented as of this encounter (statuses as of 06/21/2019) Medications Medication Sig Dispensed Refills Start Date End Date Status Lancets (ONE TOUCH Use as directed 100 Each 5 07/28/2014 Active ULTRASOFT LANCETS) [facility] cycloSPORINE Place 1 Drop in 30 Each [...] tablet by 90 tablet 3 02/11/2019 Active No.58-Aoqy-Zzkrb Acid mouth every (PRENATABS FA) 29-1 mg [...] as of this encounter (statuses as of 06/21/2019) Active Problems Problem Noted Date Nausea & vomiting 04/14/2019 Urinary tract infection 01/28/2019 Closed right hip fracture 09/17/2018 Closed fracture of right hip, initial encounter 09/16/2018 Overview: Added automatically from request for surgery [id number] Situational mixed anxiety and depressive disorder 06/21/2018 Fracture of femoral neck, left, closed 06/04/2018 Obesity (BMI 30-39.9) 06/04/2018 Closed fracture of neck of femur 06/03/2018 Overview: Bilateral Osteoporosis, unspecified osteoporosis type, unspecified pathological 2017 fracture presence [facility] (current) use of systemic steroids 05/11/2018 Immunization [...] Essential hypertension 2013 Overview: ICD10 Diagnosis Term Skid Adzer Utility Need for prophylactic immunotherapy 2013 Encounter for long-term (current) use of other medications 2013 Hyperlipidemia 11/03/2012 Controlled type 2 diabetes mellitus with chronic kidney disease, 09/20/2012 unspecified CKD stage, unspecified manager surgery insulin use status Overview: ICD10 Diagnosis Term Skid Adzer Utility Kidney replaced by transplant 09/19/2011 Renal transplant 05/22/2010 Cholelithiasis 03/07/2010 GERD (gastroesophageal reflux disease) 03/07/2010 History of end stage renal disease 04/16/2007 Generalized osteoarthrosis, unspecified site 12/01/2006 Hyperparathyroidism 12/01/2006 documented as of this encounter (statuses as of 06/21/2019) Resolved Problems Problem Noted Date Resolved Date Local infection of wound 2010 07/08/2016 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 05/02/20102015 disease stage I through stage IV, or unspecified Other reasons for seeking consultation 06/16/2008 04/11/2010 Overview: Mammogram Renal dialysis status 06/16/2008 04/11/2010 Overview: On peritoneal dialysis Osteoporosis 06/16/2008 04/11/2010 Overview: ICD10 Diagnosis Term Skid Adzer Utility Essential hypertension 04/16/2007 04/11/2010 Overview: ICD10 Diagnosis Term Skid Adzer Utility Renal failure 12/21/2006 04/11/2010 Overview: ICD10 Diagnosis Term Skid Adzer Utility Hypoparathyroidism 12/01/2006 12/01/2006 Hypercalcemia 10/14/2006 04/11/2010 documented as of this encounter (statuses as of 06/21/2019) Immunizations Name Administration Dates Next Due H1n1 [...] of this encounter Last Filed Vital Signs Not on filedocumented in this encounter Plan of Treatment Date Type Specialty Care Team Description 06/28/2019 Office Visit Obstetrics & Gynecology Lynnette Suh MD [address] [place] [address] DR. Taylor [address] [place] [address] [phone] 08/18/2019 Office Visit Dermatology Licha Mtz MD [address] [place], [place] [address] 08/19/2019 Appointment Radiology Familia Nava [address] [place] [address] [phone] 10/14/2019 Office Visit Family Medicine Shahida Kang MD [address] [place] [address] [place] [address] [phone] 10/28/2019 Office Visit Orthopedic Surgery Eric Le MD [address] [place], [place] 79[address] 11/10/2019 Office Visit Nephrology Dilma Hernandez MD [address] [place] [address] [phone] 11/18/2019 Office Visit Endocrinology Diabetes & Familia Nava [address] [place] [address] [phone] Health Maintenance Due Date Last Done Comments [...] of this encounter Implants Implanted Type Area Paint Stock Clerk Device Shelf Model / Identifier Expiration Serial / Lot Date Bipolar Head, Dorota Uhr Bipolar [id number] #[id number] - S0 BIPOLAR Right: Elma 12/04/2022 UH1-42-26 / Implanted: Qty: 1 on 09/17/2018 by Eric Le MD at [facility] head Hip 0 / [id number] Head, Dorota V40 Cocr Lfit 26mm/+4 #[id number] - S0 Head Right: Elma 09/29/2022 6260-9-226 / Implanted: Qty: 1 on 09/17/2018 by Eric Le MD at [facility] Hip 0 / [id number] Screw, Synthes 6.5mm Rachel 32mm Thrd 70mm #208.436 - [id number] SCREW Left: Synthes 208.436 / Implanted: Qty: 1 on 06/05/2018 by Vivek Trivedi MD at [facility] Hip 208.436 / 0 Screw, Synthes 6.5mm Rachel 16mm Thrd 70mm #208.409 - S208.409 SCREW Left: Synthes 208.409 / Implanted: Qty: 2 on 06/05/2018 by Vivek Trivedi MD at [facility] Hip 208.409 / 0 Screw, Synthes 7.3mm Rachel 16mm Thrd/70mm #208.870 - [id number] SCREW Left: Synthes 208.870 / Implanted: Qty: 1 on 06/05/2018 by Vivek Trivedi MD at [facility] Hip 208.870 / 0 Stem, Elma Size 3 Accolade Ii 127deg #[id number] - S0 Stem Right: Elma 04/14/2023 [id number] / Implanted: Qty: 1 on 09/17/2018 by Eric Le MD at [facility] Hip 0 / [id number] Washer, Synthes 13.0 Mm #219.99 - S219.99 WASHER Left: Synthes 219.99 / Implanted: Qty: 3 on 06/05/2018 by Vivek Trivedi MD at [facility] Hip 219.99 / 0 documented as of this encounter Results Not on filedocumented in this encounter Insurance Payer Benefit Plan / Subscriber ID Effective Phone Address Type Group Dates [facility] [id number] 2016-Matthew [phone] HMO HEALTH [employer] HEALTH CHOICE nt 86 [phone] [place] [address] documented as of this encounter Advance Directives Type Date Recorded Patient Medication Reconciliation Technician Explanation Advance Directives and Living Will Power of Roofer Apprentice
--- OUTSIDE RECORDS SUMMARY | 2019-11-12 19:46 | XMS REPORT | Summary of Care ---
:1955 Author Organization [facility] Address [address] [place] [address] Care Team Providers Name Role Phone Shahida Kang MD Primary Care Provider Dilma Hernandez MD Unavailable Lynne Borjas MD Unavailable Vee Marte MD Unavailable Worker, Transplant Social Unavailable Unavailable Gwen Adler MD Unavailable Reason for Visit Reason Comments Refill Request Encounter Details Date Type Department Care Team Description 06/27/2019 Refill [facility] Shahida Kang MD Refill Request - [address] [place] [address] [place] [address] Allergies Active Allergy Reactions Severity Noted Date Comments Adhesive Tape-Silicones Rash High 01/28/2019 Codeine Nausea and/or Vomiting High 01/28/2019 Iodine And Iodide Containing Nausea and/or Vomiting 04/22/2019 Products Sirolimus (Bulk) Rash 02/03/2019 documented as of this encounter (statuses as of 06/27/2019) Medications Medication Sig Dispensed Refills Start Date End Date Status Lancets (ONE TOUCH Use as directed 100 Each 5 07/28/2014 Active ULTRASOFT LANCETS) [facility] cycloSPORINE Place 1 Drop in 30 Each [...] tablet by 90 tablet 3 02/11/2019 Active No.18-Zbcm-Royxf Acid mouth every (PRENATABS FA) 29-1 mg [...] as of this encounter (statuses as of 06/27/2019) Active Problems Problem Noted Date Nausea & vomiting 04/14/2019 Urinary tract infection 01/28/2019 Closed right hip fracture 09/17/2018 Closed fracture of right hip, initial encounter 09/16/2018 Overview: Added automatically from request for surgery [id number] Situational mixed anxiety and depressive disorder 06/21/2018 Fracture of femoral neck, left, closed 06/04/2018 Obesity (BMI 30-39.9) 06/04/2018 Closed fracture of neck of femur 06/03/2018 Overview: Bilateral Osteoporosis, unspecified osteoporosis type, unspecified pathological 2017 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 05/11/2018 Immunization [...] Essential hypertension 2013 Overview: ICD10 Diagnosis Term Tool Design Checker Utility Need for prophylactic immunotherapy 2013 Encounter for long-term (current) use of other medications 2013 Hyperlipidemia 11/03/2012 Controlled type 2 diabetes mellitus with chronic kidney disease, 09/20/2012 unspecified CKD stage, unspecified mcfp insulin use status Overview: ICD10 Diagnosis Term Tool Design Checker Utility Kidney replaced by transplant 09/19/2011 Renal transplant 05/22/2010 Cholelithiasis 03/07/2010 GERD (gastroesophageal reflux disease) 03/07/2010 History of end stage renal disease 04/16/2007 Generalized osteoarthrosis, unspecified site 12/01/2006 Hyperparathyroidism 12/01/2006 documented as of this encounter (statuses as of 06/27/2019) Resolved Problems Problem Noted Date Resolved Date Local infection of wound 2010 07/08/2016 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 05/02/20102015 disease stage I through stage IV, or unspecified Other reasons for seeking consultation 06/16/2008 04/11/2010 Overview: Mammogram Renal dialysis status 06/16/2008 04/11/2010 Overview: On peritoneal dialysis Osteoporosis 06/16/2008 04/11/2010 Overview: ICD10 Diagnosis Term Tool Design Checker Utility Essential hypertension 04/16/2007 04/11/2010 Overview: ICD10 Diagnosis Term Tool Design Checker Utility Renal failure 12/21/2006 04/11/2010 Overview: ICD10 Diagnosis Term Tool Design Checker Utility Hypoparathyroidism 12/01/2006 12/01/2006 Hypercalcemia 10/14/2006 04/11/2010 documented as of this encounter (statuses as of 06/27/2019) Immunizations Name Administration Dates Next Due H1n1 [...] Visit Obstetrics & Gynecology Lynnette Suh MD [address] [place] [address] DR. Taylor [address] [place] [address] [phone] 08/18/2019 Office Visit Dermatology Licha Mtz MD [address] [place], [place] [address] 08/19/2019 Appointment Radiology Familia Nava [address] [place] [address] [phone] 10/14/2019 Office Visit Family Medicine Shahida Kang MD [address] [place] [address] [place] [address] [phone] 10/28/2019 Office Visit Orthopedic Surgery Eric Le MD [address] [place], [place] [address]163 11/10/2019 Office Visit Nephrology Dilma Hernandez MD [address] [place] [address] [phone] 11/18/2019 Office Visit Endocrinology Diabetes & Familia Nava [address] [place] [address] [phone] Health Maintenance Due Date Last Done Comments [...] 07/30/2019 07/30/2018, 08/14/2017, 01/02/2017, Additional history exists MAMMOGRAM 11/10/2019 11/10/2018, 10/28/2017, 10/13/2016, Additional history exists HgA1C 12/22/2019 06/21/2019, 01/28/2019, 07/30/2018, Additional history exists CREATININE (SERUM) 06/21/2020 06/21/2019, 05/18/2019, 05/02/2019, Additional history exists LDL-C 06/21/2020 06/21/2019, 02/03/2019, 04/29/2018, Additional history exists DTaP,Tdap,and Td Vaccines (2 - Td) 10/09/2026 10/09/2016 COLONOSCOPY 11/06/2027 11/06/2017 HEPATITIS C (HCV) SCREEN Completed 05/02/2010, 03/07/2010, 12/06/2009, Additional history exists documented as of this encounter Implants Implanted Type Area Beater Head Device Shelf Model / Identifier Expiration Serial / Lot Date Bipolar Head, [place] Uhr Bipolar [id number] #[id number] - S0 BIPOLAR Right: [place] 12/04/2022 UH1-42-26 / Implanted: Qty: 1 on 09/17/2018 by Eric Le MD at [facility] head Hip 0 / [id number] Head, [place] V40 Cocr Lfit 26mm/+4 #6260-9-226 - S0 Head Right: [place] 09/29/2022 6260-9-226 / Implanted: Qty: 1 on 09/17/2018 by Eric Le MD at [facility] Hip 0 / [id number] Screw, Synthes 6.5mm Rachel 32mm Thrd 70mm #208.436 - S208.436 SCREW Left: Synthes 208.436 / Implanted: Qty: 1 on 06/05/2018 by Vivek Trivedi MD at [facility] Hip 208.436 / 0 Screw, Synthes 6.5mm Rachel 16mm Thrd 70mm #208.409 - S208.409 SCREW Left: Synthes 208.409 / Implanted: Qty: 2 on 06/05/2018 by Vivek Trivedi MD at [facility] Hip 208.409 / 0 Screw, Synthes 7.3mm Rachel 16mm Thrd/70mm #208.870 - S208.870 SCREW Left: Synthes 208.870 / Implanted: Qty: 1 on 06/05/2018 by Vivek Trivedi MD at [facility] Hip 208.870 / 0 Stem, Dorota Size 3 Accolade Ii 127deg #7360-8603 - S0 Stem Right: [place] 04/14/2023 0280-5496 / Implanted: Qty: 1 on 09/17/2018 by Eric Le MD at [facility] Hip 0 / [id number] Washer, Synthes 13.0 Mm #219.99 - S219.99 WASHER Left: Synthes 219.99 / Implanted: Qty: 3 on 06/05/2018 by Vivek Trivedi MD at [facility] Hip 219.99 / 0 documented as of this encounter Results Not on filedocumented in this encounter Visit Diagnoses Diagnosis Other hyperlipidemia documented in this encounter Insurance Payer Benefit Plan / Subscriber ID Effective Phone Address Type Group Dates [facility] [id number] 2016-Matthew [phone] [address] H[address] [employer] HEALTH CHOICE 86 [phone] [place] [address] documented as of this encounter Advance Directives Type Date Recorded Patient Accounts Receivable Coordinator Explanation Advance Directives and Living Will Power of Insights Strategist
--- OUTSIDE RECORDS SUMMARY | 2019-11-12 19:46 | XMS REPORT | Summary of Care ---
:1955 Author Organization [facility] Address [address] [place] [address] Care Team Providers Name Role Phone Shahida Kang MD Primary Care Provider Dilma Hernandez MD Unavailable Lynne Borjas MD Unavailable Vee Marte MD Unavailable Worker, Transplant Social Unavailable Unavailable Gwen Adler MD Unavailable Reason for Visit Reason Comments Refill Request Encounter Details Date Type Department Care Team Description 06/28/2019 Telephone [facility] Family Shahida Kang MD Refill Request Medicine - [address] [place] [address] [place] [address] Allergies Active Allergy Reactions Severity Noted Date Comments Adhesive Tape-Silicones Rash High 01/28/2019 Codeine Nausea and/or Vomiting High 01/28/2019 Iodine And Iodide Containing Nausea and/or Vomiting 04/22/2019 Products Sirolimus (Bulk) Rash 02/03/2019 documented as of this encounter (statuses as of 06/28/2019) Medications Medication Sig Dispensed Refills Start Date End Date Status Lancets (ONE TOUCH Use as directed 100 Each 5 07/28/2014 Active ULTRASOFT LANCETS) [facility] cycloSPORINE [facility] 1 Drop in 30 Each [...] tablet by 90 tablet 3 02/11/2019 Active No.68-Ghmn-Eolci Acid mouth every (PRENATABS FA) 29-1 mg [...] as of this encounter (statuses as of 06/28/2019) Active Problems Problem Noted Date Nausea & vomiting 04/14/2019 Urinary tract infection 01/28/2019 Closed right hip fracture 09/17/2018 Closed fracture of right hip, initial encounter 09/16/2018 Overview: Added automatically from request for surgery [id number] Situational mixed anxiety and depressive disorder 06/21/2018 Fracture of femoral neck, left, closed 06/04/2018 Obesity (BMI 30-39.9) 06/04/2018 Closed fracture of neck of femur 06/03/2018 Overview: Bilateral Osteoporosis, unspecified osteoporosis type, unspecified pathological 2017 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 05/11/2018 Immunization [...] Essential hypertension 2013 Overview: ICD10 Diagnosis Term Senior Interior Designer Utility Need for prophylactic immunotherapy 2013 Encounter for long-term (current) use of other medications 2013 Hyperlipidemia 11/03/2012 Controlled type 2 diabetes mellitus with chronic kidney disease, 09/20/2012 unspecified CKD stage, unspecified halfway insulin use status Overview: ICD10 Diagnosis Term Senior Interior Designer Utility Kidney replaced by transplant 09/19/2011 Renal transplant 05/22/2010 Cholelithiasis 03/07/2010 GERD (gastroesophageal reflux disease) 03/07/2010 History of end stage renal disease 04/16/2007 Generalized osteoarthrosis, unspecified site 12/01/2006 Hyperparathyroidism 12/01/2006 documented as of this encounter (statuses as of 06/28/2019) Resolved Problems Problem Noted Date Resolved Date Local infection of wound 2010 07/08/2016 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 05/02/20102015 disease stage I through stage IV, or unspecified Other reasons for seeking consultation 06/16/2008 04/11/2010 Overview: Mammogram Renal dialysis status 06/16/2008 04/11/2010 Overview: On peritoneal dialysis Osteoporosis 06/16/2008 04/11/2010 Overview: ICD10 Diagnosis Term Senior Interior Designer Utility Essential hypertension 04/16/2007 04/11/2010 Overview: ICD10 Diagnosis Term Senior Interior Designer Utility Renal failure 12/21/2006 04/11/2010 Overview: ICD10 Diagnosis Term Senior Interior Designer Utility Hypoparathyroidism 12/01/2006 12/01/2006 Hypercalcemia 10/14/2006 04/11/2010 documented as of this encounter (statuses as of 06/28/2019) Immunizations Name Administration Dates Next Due H1n1 [...] Obstetrics & Gynecology Lynnette Suh MD [address] [place] [address] DR. Taylor [address] [place] [address] [phone] 08/18/2019 Office Visit Dermatology Licha Mtz MD [address] [place], [place] [address] 08/19/2019 Appointment Radiology Familia Nava [address] [place] [address] [phone] 10/14/2019 Office Visit Family Medicine Shahida Kang MD [address] [place] [address] [place] [address] [phone] 10/28/2019 Office Visit Orthopedic Surgery Eric Le MD [address] [place], [place] 485133 11/10/2019 Office Visit Nephrology Dilma Hernandez MD [address] [place] [address] [phone] 11/18/2019 Office Visit Endocrinology Diabetes & Familia Nava [address] [place] [address] [phone] Health Maintenance Due Date Last Done Comments [...] of this encounter Implants Implanted Type Area Fishing Lure Assembler Device Shelf Model / Identifier Expiration Serial / Lot Date Bipolar Head, Crystal Uhr Bipolar [id number] #[id number] - S0 BIPOLAR Right: [place] 12/04/2022 UH1-42-26 / Implanted: Qty: 1 on 09/17/2018 by Eric Le MD at [facility] head Hip 0 / [id number] Head, [place] V40 Cocr Lfit 26mm/+4 #6260-9-226 - S0 Head Right: [place] 09/29/2022 6260-9-226 / Implanted: Qty: 1 on 09/17/2018 by Eric Le MD at [facility] Hip 0 / [id number] Screw, Synthes 6.5mm [place] 32mm Thrd 70mm #208.436 - S208.436 SCREW Left: Synthes 208.436 / Implanted: Qty: 1 on 06/05/2018 by Vivek Trivedi MD at [facility] Hip 208.436 / 0 Screw, Synthes 6.5mm Rachel 16mm Thrd 70mm #208.409 - S208.409 SCREW Left: Synthes 208.409 / Implanted: Qty: 2 on 06/05/2018 by Vivek Trivedi MD at [facility] Hip 208.409 / 0 Screw, Synthes 7.3mm Rachel 16mm Thrd/70mm #208.870 - S208.870 SCREW Left: Synthes 208.870 / Implanted: Qty: 1 on 06/05/2018 by Vivek Trivedi MD at [facility] Hip 208.870 / 0 Stem, Crystal Size 3 Accolade Ii 127deg #9176-6324 - S0 Stem Right: Dor[place] 04/14/2023 9570-1591 / Implanted: Qty: 1 on 09/17/2018 by Eric Le MD at [facility] Hip 0 / [id number] Washer, Synthes 13.0 Mm #219.99 - S219.99 WASHER Left: Synthes 219.99 / Implanted: Qty: 3 on 06/05/2018 by Vivek Trivedi MD at [facility] Hip 219.99 / 0 documented as of this encounter Results Not on filedocumented in this encounter Visit Diagnoses Diagnosis Other hyperlipidemia documented in this encounter Insurance Payer Benefit Plan / Subscriber ID Effective Phone Address Type Group Dates [facility] [id number] 2016-Matthew [phone] [address] HMO HEALTH [employer] HEALTH CHOICE [phone] [place] [address] documented as of this encounter Advance Directives Type Date Recorded Patient Patient Admitting Clerk Explanation Advance Directives and Living Will Power of Testing Lead
--- OUTSIDE RECORDS SUMMARY | 2019-11-12 19:47 | XMS REPORT | Summary of Care ---
:1955 Author Organization [facility] Address [address] [place] [address] Care Team Providers Name Role Phone Shahida Kang MD Primary Care Provider Dilma Hernandez MD Unavailable Lynne Borjas MD Unavailable Vee Marte MD Unavailable Worker, Transplant Social Unavailable Unavailable Gwen Adler MD Unavailable Reason for Visit Reason Comments Post Transplant Refill Request Encounter Details Date Type Department Care Team Description 06/28/2019 Telephone [facility] Transplant- Dilma Hernandez Post Transplant; Teodora Aguila MD Refill Request [facility] [address] [place] [phone] Allergies Active Allergy Reactions Severity Noted Date [...] 100 Each 5 07/28/2014 Active ULTRASOFT LANCETS) [facility] 1 Drop in 30 [...] tablet by 90 tablet 3 02/11/2019 Active No.29-Djex-Rnjbw Acid mouth every (PRENATABS FA) 29-1 mg [...] Overview: Added automatically from request for surgery [id number] Situational mixed anxiety and depressive disorder 06/21/2018 Fracture of femoral neck, left, closed 06/04/2018 Obesity (BMI 30-39.9) 06/04/2018 Closed fracture of neck of femur 06/03/2018 Overview: Bilateral Osteoporosis, unspecified osteoporosis type, unspecified pathological 2017 fracture 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 05/11/2018 Immunization [...] Essential hypertension 2013 Overview: ICD10 Diagnosis Term Semiconductor Wafers Etch Operator Utility Need for prophylactic immunotherapy 2013 Encounter for long-term (current) use of other medications 2013 Hyperlipidemia 11/03/2012 Controlled type 2 diabetes mellitus with chronic kidney disease, 09/20/2012 unspecified CKD stage, unspecified intermediate teacher insulin use status Overview: ICD10 Diagnosis Term Semiconductor Wafers Etch Operator Utility Kidney replaced by transplant 09/19/2011 Renal [...] Osteoporosis 06/16/2008 04/11/2010 Overview: ICD10 Diagnosis Term Semiconductor Wafers Etch Operator Utility Essential hypertension 04/16/2007 04/11/2010 Overview: ICD10 Diagnosis Term Semiconductor Wafers Etch Operator Utility Renal failure 12/21/2006 04/11/2010 Overview: ICD10 Diagnosis Term Semiconductor Wafers Etch Operator Utility Hypoparathyroidism 12/01/2006 12/01/2006 Hypercalcemia 10/14/2006 04/11/2010 [...] Treatment Date Type Specialty Care Team Description 07/26/2019 Office Visit Obstetrics & Gynecology Radha Agee PA-C [address] [place] [phone] 08/18/2019 Office Visit Dermatology Licha Mtz MD [address] [place] [address] 08/19/2019 Appointment Radiology Familia Nava [address] 2[address] 10/14/2019 Office Visit Family Medicine Shahida Kang MD [address] [place] [phone] 10/28/2019 Office Visit Orthopedic Surgery Eric Le MD [address] [place], [place] 6[address] 11/10/2019 Office Visit Nephrology Dilma Hernandez MD [address] [place], [place] [address] 11/18/2019 Office Visit Endocrinology Diabetes & Familia Nava [address] [phone] Health Maintenance Due Date Last Done Comments [...] of this encounter Implants Implanted Type Area Route Relief Driver Device Shelf Model / Identifier Expiration Serial / Lot Date Bipolar Head, [place] Uhr Bipolar [id number] #[id number] - S0 BIPOLAR Right: [place] 12/04/2022 UH1-42-26 / Implanted: Qty: 1 on 09/17/2018 by Eric Le MD at [facility] head Hip 0 / [id number] Head, [place] V40 Cocr Lfit 26mm/+4 #6260-9-226 - S0 Head Right: [place] 09/29/2022 6260-9-226 / Implanted: Qty: 1 on 09/17/2018 by Eric Le MD at [facility] Hip 0 / [id number] Screw, Synthes 6.5mm Rachel 32mm Thrd 70mm #208.436 - S208.436 SCREW Left: Synthes 208.436 / Implanted: Qty: 1 on 06/05/2018 by Vivek Trivedi MD at [facility] Hip 208.436 / 0 Screw, Synthes 6.5mm Rachel 16mm Thrd 70mm #208.409 - S208.409 SCREW Left: Synthes 208.409 / Implanted: Qty: 2 on 06/05/2018 by Vivek Trivedi MD at [facility] Hip 208.409 / 0 Screw, Synthes 7.3mm Rachel 16mm Thrd/70mm #208.870 - S208.870 SCREW Left: Synthes 208.870 / Implanted: Qty: 1 on 06/05/2018 by Vivek Trivedi MD at [facility] Hip 208.870 / 0 Stem, [place] Size 3 Accolade Ii 127deg #1763-6099 - S0 Stem Right: [place] 04/14/2023 6848-1973 / Implanted: Qty: 1 on 09/17/2018 by Eric Le MD at [facility] Hip 0 / [id number] Washer, Synthes 13.0 Mm #219.99 - S219.99 WASHER Left: Synthes 219.99 / Implanted: Qty: 3 on 06/05/2018 by Vivek Trivedi MD at [facility] Hip 219.99 / 0 documented as of this encounter Results Not on filedocumented in this encounter Insurance Payer Benefit Plan / Subscriber ID Effective Phone Address Type Group Dates [facility] [id number] 2016-Matthew [phone] [address] HMO HEALTH [employer] HEALTH CHOICE nt 86 [phone] [place] [address] documented as of this encounter Advance Directives Type Date Recorded Patient Safety Risk Lead Explanation Advance Directives and Living Will Power of [employer] Net Developer
--- OUTSIDE RECORDS SUMMARY | 2019-11-12 19:47 | XMS REPORT | Summary of Care ---
:1955 Author Organization [facility] Address [address] [place] [address] Care Team Providers Name Role Phone Shahida Kang MD Primary Care Provider Dilma Hernandez MD Unavailable Lynne Borjas MD Unavailable Vee Marte MD Unavailable Worker, Transplant Social Unavailable Unavailable Gwen Adler MD Unavailable Reason for Visit Reason Comments Refill Request Encounter Details Date Type Department Care Team Description 06/28/2019 Telephone [facility] Shahida Kang MD Refill Request Medicine - [address] [place] [address] [place] [address] Allergies Active Allergy Reactions Severity Noted Date Comments Adhesive Tape-Silicones Rash High 01/28/2019 Codeine Nausea and/or Vomiting High 01/28/2019 Iodine And Iodide Containing Nausea and/or Vomiting 04/22/2019 Products Sirolimus (Bulk) Rash 02/03/2019 documented as of this encounter (statuses as of 06/29/2019) Medications Medication Sig Dispensed Refills Start Date End Date Status Lancets (ONE TOUCH Use as directed 100 Each 5 07/28/2014 Active ULTRASOFT LANCETS) [facility] [place] 1 Drop [...] tablet by 90 tablet 3 02/11/2019 Active No.34-Zpej-Rjvuh Acid mouth every (PRENATABS FA) 29-1 mg [...] as of this encounter (statuses as of 06/29/2019) Active Problems Problem Noted Date Nausea & vomiting 04/14/2019 Urinary tract infection 01/28/2019 Closed right hip fracture 09/17/2018 Closed fracture of right hip, initial encounter 09/16/2018 Overview: Added automatically from request for surgery [id number] Situational mixed anxiety and depressive disorder 06/21/2018 Fracture of femoral neck, left, closed 06/04/2018 Obesity (BMI 30-39.9) 06/04/2018 Closed fracture of neck of femur 06/03/2018 Overview: Bilateral Osteoporosis, unspecified osteoporosis type, unspecified pathological 2017 fracture 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) use of systemic steroids 05/11/2018 Immunization [...] Essential hypertension 2013 Overview: ICD10 Diagnosis Term Payroll Clerk Utility Need for prophylactic immunotherapy 2013 Encounter for long-term (current) use of other medications 2013 Hyperlipidemia 11/03/2012 Controlled type 2 diabetes mellitus with chronic kidney disease, 09/20/2012 unspecified CKD stage, unspecified custodial insulin use status Overview: ICD10 Diagnosis Term Payroll Clerk Utility Kidney replaced by transplant 09/19/2011 Renal transplant 05/22/2010 Cholelithiasis 03/07/2010 GERD (gastroesophageal reflux disease) 03/07/2010 History of end stage renal disease 04/16/2007 Generalized osteoarthrosis, unspecified site 12/01/2006 Hyperparathyroidism 12/01/2006 documented as of this encounter (statuses as of 06/29/2019) Resolved Problems Problem Noted Date Resolved Date Local infection of wound 2010 07/08/2016 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 05/02/20102015 disease stage I through stage IV, or unspecified Other reasons for seeking consultation 06/16/2008 04/11/2010 Overview: Mammogram Renal dialysis status 06/16/2008 04/11/2010 Overview: On peritoneal dialysis Osteoporosis 06/16/2008 04/11/2010 Overview: ICD10 Diagnosis Term Payroll Clerk Utility Essential hypertension 04/16/2007 04/11/2010 Overview: ICD10 Diagnosis Term Payroll Clerk Utility Renal failure 12/21/2006 04/11/2010 Overview: ICD10 Diagnosis Term Payroll Clerk Utility Hypoparathyroidism 12/01/2006 12/01/2006 Hypercalcemia 10/14/2006 04/11/2010 documented as of this encounter (statuses as of 06/29/2019) Immunizations Name Administration Dates Next Due H1n1 [...] Visit Obstetrics & Gynecology Radha Agee PA-C [address] [place] [address] [phone] 08/18/2019 Office Visit Dermatology Licha Mtz MD [address] [place], [place] [address] 08/19/2019 Appointment Radiology Familia Nava [address] [place] [address] [address] [phone] 10/14/2019 Office Visit Family Medicine Shahida Kang MD [address] [place] [address] [phone] 10/28/2019 Office Visit Orthopedic Surgery Eric Le MD [address] [place], [place] 274553 11/10/2019 Office Visit Nephrology Dilma Hernandez MD [address] [place] [address] [phone] 11/18/2019 Office Visit Endocrinology Diabetes & Familia Nava [address] [address] [phone] Health Maintenance Due Date Last Done Comments [...] of this encounter Implants Implanted Type Area Principal Mechanical Engineer Device Shelf Model / Identifier Expiration Serial / Lot Date Bipolar Head, Dorota Uhr Bipolar [id number] #[id number] - S0 BIPOLAR Right: Dorota 12/04/2022 UH1-42-26 / Implanted: Qty: 1 on 09/17/2018 by Eric Le MD at [facility] head Hip 0 / [id number] Head, [place] V40 Cocr Lfit 26mm/+4 #[id number] - S0 Head Right: Dorota 09/29/2022 6260-9-226 / Implanted: Qty: 1 on 09/17/2018 by Eric Le MD at [facility] Hip 0 / [id number] Screw, Synthes 6.5mm Rachel 32mm Thrd 70mm #208.436 - S208.436 SCREW Left: Synthes 208.436 / Implanted: Qty: 1 on 06/05/2018 by Vivek Trivedi MD at [facility] Hip 208.436 / 0 Screw, Synthes 6.5mm Rachel 16mm Thrd 70mm #208.409 - S208.409 SCREW Left: Synthes 208.409 / Implanted: Qty: 2 on 06/05/2018 by Vivek Trivedi MD at [facility] Hip 208.409 / 0 Screw, Synthes 7.3mm Rachel 16mm Thrd/70mm #208.870 - S208.870 SCREW Left: Synthes 208.870 / Implanted: Qty: 1 on 06/05/2018 by Vivek Trivedi MD at [facility] Hip 208.870 / 0 Stem, Dorota Size 3 Accolade Ii 127deg #[id number] - S0 Stem Right: [place] 04/14/2023 [id number] / Implanted: Qty: 1 on 09/17/2018 by Eric Le MD at [facility] Hip 0 / [id number] Washer, Synthes 13.0 Mm #219.99 - S219.99 WASHER Left: Synthes 219.99 / Implanted: Qty: 3 on 06/05/2018 by Vivek Trivedi MD at [facility] Hip 219.99 / 0 documented as of this encounter Results Not on filedocumented in this encounter Visit Diagnoses Diagnosis Other hyperlipidemia documented in this encounter Insurance Payer Benefit Plan / Subscriber ID Effective Phone Address Type Group Dates [facility] [id number] 2016-Matthew [phone] 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
--- OUTSIDE RECORDS SUMMARY | 2019-11-12 19:48 | XMS REPORT | Summary of Care ---
:1955 Author Organization [facility] Address [address] [place] [address] Care Team Providers Name Role Phone Shahida Kang MD Primary Care Provider Dilma Hernandez MD Unavailable Lynne Borjas MD Unavailable Vee Marte MD Unavailable Worker, Transplant Social Unavailable Unavailable Gwen Adler MD Unavailable Reason for Visit Reason Comments Refill Request Encounter Details Date Type Department Care Team Description 06/29/2019 Refill [facility] Family Medicine Shahida Kang MD Refill Request - [address] [place] [address] [place] [address] Allergies Active Allergy Reactions Severity [...] 100 Each 5 07/28/2014 Active ULTRASOFT LANCETS) [facility] cycloSPORINE [facility] 1 Drop in 30 Each [...] tablet by 90 tablet 3 02/11/2019 Active No.02-Wwcx-Uzgyz Acid mouth every (PRENATABS FA) 29-1 mg [...] Overview: Added automatically from request for surgery [id number] Situational mixed anxiety and depressive disorder 06/21/2018 Fracture of femoral neck, left, closed 06/04/2018 Obesity (BMI 30-39.9) 06/04/2018 Closed fracture of neck of femur 06/03/2018 Overview: Bilateral Osteoporosis, unspecified osteoporosis type, unspecified pathological 2017 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 05/11/2018 Immunization [...] Essential hypertension 2013 Overview: ICD10 Diagnosis Term Building And Grounds Supervisor Utility Need for prophylactic immunotherapy 2013 Encounter for long-term (current) use of other medications 2013 Hyperlipidemia 11/03/2012 Controlled type 2 diabetes mellitus with chronic kidney disease, 09/20/2012 unspecified CKD stage, unspecified jail insulin use status Overview: ICD10 Diagnosis Term Building And Grounds Supervisor Utility Kidney replaced by transplant 09/19/2011 Renal [...] Osteoporosis 06/16/2008 04/11/2010 Overview: ICD10 Diagnosis Term Building And Grounds Supervisor Utility Essential hypertension 04/16/2007 04/11/2010 Overview: ICD10 Diagnosis Term Building And Grounds Supervisor Utility Renal failure 12/21/2006 04/11/2010 Overview: ICD10 Diagnosis Term Building And Grounds Supervisor Utility Hypoparathyroidism 12/01/2006 12/01/2006 Hypercalcemia 10/14/2006 04/11/2010 [...] Visit Obstetrics & Gynecology Radha Agee PA-C [address] [place] [address] [phone] 08/18/2019 Office Visit Dermatology Licha Mtz MD [address] [place], [place] [address] 08/19/2019 Appointment Radiology Familia Nava [address] [place] [address] [address] [phone] 10/14/2019 Office Visit Family Medicine Shahida Kang MD [address] [place] [address] [phone] 10/28/2019 Office Visit Orthopedic Surgery Eric Le MD [address] [place], [place] 046063 11/10/2019 Office Visit Nephrology Dilma Hernandez MD [address] [place] [address] [phone] 11/18/2019 Office Visit Endocrinology Diabetes & Familia Nava [address] [address] [phone] Health Maintenance Due Date Last Done Comments [...] of this encounter Implants Implanted Type Area Ager Tender Device Shelf Model / Identifier Expiration Serial / Lot Date Bipolar Head, [place] Uhr Bipolar [id number] #[id number] - S0 BIPOLAR Right: Dorota 12/04/2022 UH1-42-26 / Implanted: Qty: 1 on 09/17/2018 by Eric Le MD at [facility] head Hip 0 / [id number] Head, [place] V40 Cocr Lfit 26mm/+4 #6260-9-226 - S0 Head Right: Dorota 09/29/2022 6260-9-226 / Implanted: Qty: 1 on 09/17/2018 by Eric Le MD at [facility] Hip 0 / [id number] Screw, Synthes 6.5mm Rachel 32mm Thrd 70mm #208.436 - S208.436 SCREW Left: Synthes 208.436 / Implanted: Qty: 1 on 06/05/2018 by Vivek Trivedi MD at [facility] Hip 208.436 / 0 Screw, Synthes 6.5mm Rachel 16mm Thrd 70mm #208.409 - S208.409 SCREW Left: Synthes 208.409 / Implanted: Qty: 2 on 06/05/2018 by Vivek Trivedi MD at [facility] Hip 208.409 / 0 Screw, Synthes 7.3mm Rachel 16mm Thrd/70mm #208.870 - S208.870 SCREW Left: Synthes 208.870 / Implanted: Qty: 1 on 06/05/2018 by Vivek Trivedi MD at [facility] Hip 208.870 / 0 Stem, Dorota Size 3 Accolade Ii 127deg #9764-9322 - S0 Stem Right: [place] 04/14/2023 2613-6877 / Implanted: Qty: 1 on 09/17/2018 by Eric Le MD at [facility] Hip 0 / [id number] Washer, Synthes 13.0 Mm #219.99 - S219.99 WASHER Left: Synthes 219.99 / Implanted: Qty: 3 on 06/05/2018 by Vivek Trivedi MD at [facility] Hip 219.99 / 0 documented as of this encounter Results Not on filedocumented in this encounter Visit Diagnoses Diagnosis Other hyperlipidemia documented in this encounter Insurance Payer Benefit Plan / Subscriber ID Effective Phone Address Type Group Dates [facility] [id number] 2016-Matthew [phone] 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
--- OUTSIDE RECORDS SUMMARY | 2019-11-12 19:48 | XMS REPORT | Summary of Care ---
:1955 Author Organization [facility] Address [address] [place] [address] Care Team Providers Name Role Phone Shahida Kang MD Primary Care Provider Dilma Hernandez MD Unavailable Lynne Borjas MD Unavailable Vee Marte MD Unavailable Worker, Transplant Social Unavailable Unavailable Gwen Adler MD Unavailable Reason for Visit Reason Comments Post Transplant Refill Request Encounter Details Date Type Department Care Team Description 06/28/2019 Telephone [facility] Transplant- Dilma Hernandez Post Transplant; Teodora Aguila MD Refill Request [facility] [address] [facility] [address] [place] [phone] Allergies Active Allergy Reactions Severity Noted Date Comments Adhesive Tape-Silicones Rash High 01/28/2019 Codeine Nausea and/or Vomiting High 01/28/2019 Iodine And Iodide Containing Nausea and/or Vomiting 04/22/2019 Products Sirolimus (Bulk) Rash 02/03/2019 documented as of this encounter (statuses as of 06/30/2019) Medications Medication Sig Dispensed Refills Start End Date Status Date Lancets (ONE TOUCH Use as 100 Each 5 Active ULTRASOFT LANCETS) directed 4 [facility] [place] 1 Drop 30 Each 5 Active (RESTASIS) 0.05 % in left eye 8 drops every 12 (twelve) hours. cycloSPORINE 25 mg Take 2 180 capsule 11 Active capsule capsules by 9 mouth every 12 (twelve) hours. Z94.0 calcium carbonate 650 Take 650 mg by 0 Active mg calcium (1,625 mg) mouth daily. tablet calcitriol 0.25 mcg Take 1 capsule 90 capsule 3 Active capsuleIndications: by mouth 9 Kidney replaced by daily. transplant PNV Comb Take 1 tablet 90 tablet 3 Active No.87-Heyw-Nmqpt Acid by mouth every 9 (PRENATABS FA) 29-1 morning. mg Tab spironolactone 25 mg Take 1 tablet 30 tablet 5 Active tabletIndications: by mouth 9 Essential daily. hypertension, Edema, unspecified type GLIPIZIDE XL 5 mg 24 TAKE 1 TABLET 90 tablet 1 Active hr tabletIndications: BY MOUTH DAILY 9 Controlled type 2 WITH BREAKFAST diabetes mellitus with diabetic nephropathy, without long-term current use of insulin metoprolol succinate Take 1.5 270 tablet 3 Active XL 50 mg 24 hr tablets by 9 tabletIndications: mouth every 12 Non-intractable (twelve) vomiting with nausea, hours. unspecified vomiting type lisinopril 5 mg Take 1 tablet 30 tablet 11 Active tabletIndications: by mouth 9 Essential daily. hypertension predniSONE 5 mg Take 0.5 30 tablet 2 Active tabletIndications: tablets by 9 Renal transplant mouth daily. recipient nystatin 100,000 Take 5 mL by 240 mL 1 Active unit/mL mouth 4 (four) 9 suspensionIndications times daily. : Thrush Use for an additional 48hrs after the symptoms have resolved. benzonatate 100 mg Take 1 capsule 30 capsule 0 Active capsuleIndications: by mouth 3 9 Persistent cough (three) times daily as needed for Cough. FAMOTIDINE 20 mg TAKE 1 TABLET 180 tablet 3 Active tabletIndications: BY MOUTH TWICE 9 Gastroesophageal DAILY reflux disease, esophagitis presence not specified PRAVASTATIN 10 mg TAKE 1 TABLET 90 tablet 3 Active tabletIndications: BY MOUTH AT 9 Other hyperlipidemia BEDTIME omeprazole 20 mg TAKE 1 CAPSULE 30 capsule 0 Active capsule BY MOUTH EVERY 9 MORNING WITH BREAKFAST. efinaconazole Apply to 4 mL 11 Active (JUBLIA) 10 % topical affected 9 solutionIndications: toenails daily Onychomycosis of toenail montelukast 10 mg Take 1 tablet 30 tablet 5 Active tabletIndications: by mouth every 9 Persistent cough evening. mycophenolate sodium Take 2 tablets 120 tablet 5 Active (MYFORTIC) 360 mg EC by mouth every 9 tablet 12 (twelve) hours. Z94.0 mycophenolate sodium Take 2 tablets 180 tablet 2 06/30/20 Discontinued (MYFORTIC) 360 mg EC by mouth every 9 19 tablet 12 (twelve) hours. Z94.0 documented as of this encounter (statuses as of 06/30/2019) Active Problems Problem Noted Date Nausea & vomiting 04/14/2019 Urinary tract infection 01/28/2019 Closed right hip fracture 09/17/2018 Closed fracture of right hip, initial encounter 09/16/2018 Overview: Added automatically from request for surgery [id number] Situational mixed anxiety and depressive disorder 06/21/2018 [...] Essential hypertension 2013 Overview: ICD10 Diagnosis Term Touch Up Worker Utility Need for prophylactic immunotherapy 2013 Encounter for long-term (current) use of other medications 2013 Hyperlipidemia 11/03/2012 Controlled type 2 diabetes mellitus with chronic kidney disease, 09/20/2012 unspecified CKD stage, unspecified long winder tender insulin use status Overview: ICD10 Diagnosis Term Touch Up Worker Utility Kidney replaced by transplant 09/19/2011 Renal transplant 05/22/2010 Cholelithiasis 03/07/2010 GERD (gastroesophageal reflux disease) 03/07/2010 History of end stage renal disease 04/16/2007 Generalized osteoarthrosis, unspecified site 12/01/2006 Hyperparathyroidism 12/01/2006 documented as of this encounter (statuses as of 06/30/2019) Resolved Problems Problem Noted Date Resolved Date Local infection of wound 2010 07/08/2016 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 05/02/20102015 disease stage I through stage IV, or unspecified Other reasons for seeking consultation 06/16/2008 04/11/2010 Overview: Mammogram Renal dialysis status 06/16/2008 04/11/2010 Overview: On peritoneal dialysis Osteoporosis 06/16/2008 04/11/2010 Overview: ICD10 Diagnosis Term Touch Up Worker Utility Essential hypertension 04/16/2007 04/11/2010 Overview: ICD10 Diagnosis Term Touch Up Worker Utility Renal failure 12/21/2006 04/11/2010 Overview: ICD10 Diagnosis Term Touch Up Worker Utility Hypoparathyroidism 12/01/2006 12/01/2006 Hypercalcemia 10/14/2006 04/11/2010 documented as of this encounter (statuses as of 06/30/2019) Immunizations Name Administration Dates Next Due H1n1 [...] 07/26/2019 Office Visit Obstetrics & Gynecology Radha Agee, JULIO CESAR [address] [place] [phone] 08/18/2019 Office Visit Dermatology Licha Mtz MD [address] [place] [address] 08/19/2019 Appointment Radiology Familia Nava [address] [place] [phone] 10/14/2019 Office Visit Family Medicine Shahida Kang MD [address] [place] [phone] 10/28/2019 Office Visit Orthopedic Surgery Eric Le MD [address] [place], [place] 9499[address] 11/10/2019 Office Visit Nephrology Dilma Hernandez MD [address] [place], [place] [address] 11/18/2019 Office Visit Endocrinology Diabetes & Familia Nava Metabolism [address] [place] [address] [place] [address] [phone] Health Maintenance Due Date Last Done Comments [...] of this encounter Implants Implanted Type Area Foreign Service Officer Device Shelf Model / Identifier Expiration Serial / Lot Date Bipolar Head, Mackey Uhr Bipolar [id number] #Uh1-42-26 - S0 BIPOLAR Right: Dorota 12/04/2022 UH1-42-26 / Implanted: Qty: 1 on 09/17/2018 by Eric Le MD at [facility] head Hip 0 / [id number] Head, [place] V40 Cocr Lfit 26mm/+4 #6260-9-226 - S0 Head Right: [place]key 09/29/2022 6260-9-226 / Implanted: Qty: 1 on 09/17/2018 by Eric Le MD at [facility] Hip 0 / [id number] Screw, Synthes 6.5mm Rachel 32mm Thrd 70mm #208.436 - S208.436 SCREW Left: Synthes 208.436 / Implanted: Qty: 1 on 06/05/2018 by Vivek Trivedi MD at [facility] Hip 208.436 / 0 Screw, Synthes 6.5mm Rachel 16mm Thrd 70mm #208.409 - S208.409 SCREW Left: Synthes 208.409 / Implanted: Qty: 2 on 06/05/2018 by Vivek Trivedi MD at [facility] Hip 208.409 / 0 Screw, Synthes 7.3mm Rachel 16mm Thrd/70mm #208.870 - S208.870 SCREW Left: Synthes 208.870 / Implanted: Qty: 1 on 06/05/2018 by Vivek Trivedi MD at [facility] Hip 208.870 / 0 Stem, Dorota Size 3 Accolade Ii 127deg #6333-9854 - S0 Stem Right: [place] 04/14/2023 5986-4870 / Implanted: Qty: 1 on 09/17/2018 by Eric Le MD at [facility] Hip 0 / [id number] Washer, Synthes 13.0 Mm #219.99 - S219.99 WASHER Left: Synthes 219.99 / Implanted: Qty: 3 on 06/05/2018 by Vivek Trivedi MD at [facility] Hip 219.99 / 0 documented as of this encounter Results Not on filedocumented in this encounter Insurance Payer Benefit Plan / Subscriber ID Effective Phone Address Type Group Dates [facility] [id number] 2016-Matthew [phone] 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
--- OUTSIDE RECORDS SUMMARY | 2019-11-12 19:49 | XMS REPORT | Summary of Care ---
:1955 Author Organization [facility] Address [address] [place] [address] Care Team Providers Name Role Phone Shahida Kang MD Primary Care Provider Dilma Hernandez MD Unavailable Lynne Borjas MD Unavailable Vee Marte MD Unavailable Worker, Transplant Social Unavailable Unavailable Gwen Adler MD Unavailable Reason for Visit Reason Comments Diabetic Eye Exam Encounter Details Date Type Department Care Team Description 07/27/2019 Office Visit [facility] Eye David Lopez Type 2 diabetes mellitus without retinopathy (Primary Dx); [facility] D, OD Early cataracts, bilateral; [address] [facility] Essential hypertension; [place] [address] Dry eye syndrome, bilateral; [place], [place] [phone] Pterygium of both eyes; [phone] Refractive error [phone] Allergies Active Allergy Reactions Severity Noted Date Comments Adhesive Tape-Silicones Rash High 01/28/2019 Codeine Nausea and/or Vomiting High 01/28/2019 Iodine And Iodide Containing Nausea and/or Vomiting 04/22/2019 Products Sirolimus (Bulk) Rash 02/03/2019 documented as of this encounter (statuses as of 07/27/2019) Medications Medication Sig Dispensed Refills Start End Date Status Date Lancets (ONE TOUCH Use as 100 Each 5 Active ULTRASOFT LANCETS) directed 4 Misc cycloSPORINE 25 mg Take 2 180 capsule 11 Active capsule capsules by 9 mouth every 12 (twelve) hours. Z94.0 calcium carbonate 650 Take 650 mg by 0 Active mg calcium (1,625 mg) mouth daily. tablet calcitriol 0.25 mcg Take 1 capsule 90 capsule 3 Active capsuleIndications: by mouth 9 Kidney replaced by daily. transplant PNV Comb Take 1 tablet 90 tablet 3 Active No.28-Vfmr-Vojhy Acid by mouth every 9 (PRENATABS FA) [...] every 9 tablet 12 (twelve) hours. Z94.[address] 1 Drop 30 Each 5 Active (RESTASIS) 0.05 % in left eye 9 dropsIndications: Dry every 12 eye syndrome, (twelve) bilateral hours. cycloSPORINE Place 1 Drop 30 Each 07/27/20 Discontinued (RESTASIS) 0.05 % in left eye 8 19 drops every 12 (twelve) hours. documented as of this encounter (statuses as of 07/27/2019) Active Problems Problem Noted Date Nausea & vomiting 04/14/2019 Urinary tract infection 01/28/2019 Closed right hip fracture 09/17/2018 Closed fracture of right hip, initial encounter 09/16/2018 Overview: Added automatically from request for surgery [id number] Situational mixed anxiety and depressive disorder 06/21/2018 Fracture of femoral neck, left, closed 06/04/2018 Obesity (BMI 30-39.9) 06/04/2018 Closed fracture of neck of femur 06/03/2018 Overview: Bilateral Osteoporosis, unspecified osteoporosis type, unspecified pathological 2017 fracture presence senior living (current) use of systemic steroids 05/11/2018 Immunization [...] Essential hypertension 2013 Overview: ICD10 Diagnosis Term Associate Loan Officer Utility Need for prophylactic immunotherapy 2013 Encounter for long-term (current) use of other medications 2013 Hyperlipidemia 11/03/2012 Controlled type 2 diabetes mellitus with chronic kidney disease, 09/20/2012 unspecified CKD stage, unspecified 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 insulin use status Overview: ICD10 Diagnosis Term Associate Loan Officer Utility Kidney replaced by transplant 09/19/2011 Renal transplant 05/22/2010 Cholelithiasis 03/07/2010 GERD (gastroesophageal reflux disease) 03/07/2010 History of end stage renal disease 04/16/2007 Generalized osteoarthrosis, unspecified site 12/01/2006 Hyperparathyroidism 12/01/2006 documented as of this encounter (statuses as of 07/27/2019) Resolved Problems Problem Noted Date Resolved Date Local infection of wound 2010 07/08/2016 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 05/02/20102015 disease stage I through stage IV, or unspecified Other reasons for seeking consultation 06/16/2008 04/11/2010 Overview: Mammogram Renal dialysis status 06/16/2008 04/11/2010 Overview: On peritoneal dialysis Osteoporosis 06/16/2008 04/11/2010 Overview: ICD10 Diagnosis Term Associate Loan Officer Utility Essential hypertension 04/16/2007 04/11/2010 Overview: ICD10 Diagnosis Term Associate Loan Officer Utility Renal failure 12/21/2006 04/11/2010 Overview: ICD10 Diagnosis Term Associate Loan Officer Utility Hypoparathyroidism 12/01/2006 12/01/2006 Hypercalcemia 10/14/2006 04/11/2010 documented as of this encounter (statuses as of 07/27/2019) Immunizations Name Administration Dates Next Due H1n1 [...] Sign Reading Time Taken Comments Blood Pressure - - Pulse - - Temperature - - Respiratory Rate - - Oxygen Saturation - - Inhaled Oxygen Concentration - - Weight 64 kg (141 lb) 07/27/2019 11:02 AM CDT Height - - Body Mass Index 27.54 06/17/2019 3:19 PM CDT documented in this encounter Progress Notes David Lopez, OD - 07/27/2019 10:45 AM CDT Diabetic Surveillance Eye Examination Note: Patient is concerned for eye health and vision with concerns for possible diabetic retinopathy in the context of systemic diabetes treatment. HGB A1C Date Value 06/21/2019 6.0 % NGSP 01/20/2013 5.4 % HEMOGLOBIN A1c-Q (% of total Hgb) Date Value 07/08/2016 6.1 (H) HGB A1C Date Value 06/21/2019 6.0 % NGSP 01/28/2019 6.2 % (H) 01/20/2013 5.4 % 11/04/2012 10.4 % (H) HEMOGLOBIN A1c-Q (% of total Hgb) Date Value 07/08/2016 6.1 (H) POCT HBA1C (%) Date Value 08/25/2014 5.6 02/10/2014 5.6 Patient's Medications START taking these medications No medications on file CONTINUE taking these medications which have NOT CHANGED BENZONATATE 100 MG CAPSULE Take 1 capsule by mouth 3 (three) times daily as needed for Cough. CALCITRIOL 0.25 MCG CAPSULE Take 1 capsule by mouth daily. CALCIUM CARBONATE 650 MG CALCIUM (1,625 MG) TABLET Take 650 mg by mouth daily. CYCLOSPORINE 25 MG CAPSULE Take 2 capsules by mouth every 12 (twelve) hours. Z94.0 EFINACONAZOLE (JUBLIA) 10 % TOPICAL SOLUTION Apply to affected toenails daily FAMOTIDINE 20 MG TABLET TAKE 1 TABLET BY MOUTH TWICE DAILY GLIPIZIDE XL 5 MG 24 HR TABLET TAKE 1 TABLET BY MOUTH DAILY WITH BREAKFAST LANCETS (ONE TOUCH ULTRASOFT LANCETS) MISC Use as directed LISINOPRIL 5 MG TABLET Take 1 tablet by mouth daily. METOPROLOL SUCCINATE XL 50 MG 24 HR TABLET Take 1.5 tablets by mouth every 12 (twelve) hours. MONTELUKAST 10 MG TABLET Take 1 tablet by mouth every evening. MYCOPHENOLATE SODIUM (MYFORTIC) 360 MG EC TABLET Take 2 tablets by mouth every 12 (twelve) hours. Z94.0 NYSTATIN 100,000 UNIT/ML SUSPENSION Take 5 mL by mouth 4 (four) times daily. Use for an additional 48hrs after the symptoms have resolved. OMEPRAZOLE 20 MG CAPSULE TAKE 1 CAPSULE BY MOUTH EVERY MORNING WITH BREAKFAST. PNV COMB NO.13-UOBL-WMFES ACID (PRENATABS FA) 29-1 MG TAB Take 1 tablet by mouth every morning. PRAVASTATIN 10 MG TABLET TAKE 1 TABLET BY MOUTH AT BEDTIME PREDNISONE 5 MG TABLET Take 0.5 tablets by mouth daily. SPIRONOLACTONE 25 MG TABLET Take 1 tablet by mouth daily. START taking Modified Medications as Prescribed Modified Medication Previous Medication CYCLOSPORINE (RESTASIS) 0.05 % DROPS cycloSPORINE (RESTASIS) 0.05 % drops Place 1 Drop in left eye every 12 (twelve) hours. Place 1 Drop in left eye every 12 (twelve) hours. STOP taking these medications No medications on file Encounter Diagnoses Name Primary? Type 2 diabetes mellitus without retinopathy Yes Early cataracts, bilateral Essential hypertension Dry eye syndrome, bilateral Pterygium of both eyes Refractive error Discussed no evidence of active diabetic retinopathy detected at this time. Emphasized need for aggressive control and monitoring of blood sugar, blood pressure and cholesterol levels. Advised patient that HA1C should be < 7. Emphasized importance of regular eye care for diabetic retinopathy surveillance and potential sequelae of non-compliance. Patient verbalized understanding of discussion and instructions. All of the patient's questions were addressed and answered. Unless specified below, patient has refused or deferredrefractive studies today, and has opted to continue with the current glasses and / or contact lenses. Final Rx Sphere Cylinder [place] [facility] Add Near [facility] Right +0.50 +0.75 010 20/20-1 +3.00 20/20 Left -0.50 +0.50 165 20/20 +3.00 20/20 Expiration Date: 07/27/2020 Unlike signs are correct Disposition Patient advised to return to the clinic as scheduled for pertinent surveillance care. David Lopez OD Wet End Operator Clinical Professor Clinical and Nursing Specialist: [employer] [facility] Department of Ophthalmology And Visual SciencesElectronically signed by David Lopez OD at 2018 1:26 PM CDTdocumented in this encounter Plan of Treatment Date Type Specialty Care Team Description 08/18/2019 Office Visit Dermatology Licha Mtz MD [address] [place] [address] [phone] 08/19/2019 Appointment Radiology [facility]am[facility] [address] [place] [address] Dr Taylor [address] [place] [phone] 10/14/2019 Office Visit Family Medicine Shahida Kang MD [address] [place] [address] [place] [phone] 10/28/2019 Office Visit Orthopedic Surgery Eric Le MD [address] [place], [place] 654313 11/10/2019 Office Visit Nephrology Dilma Hernandez MD [address] [place] [address] [phone] 11/18/2019 Office Visit Endocrinology Diabetes & [facility]am[facility] Nava [address] Taylor [address] [place] [address] [phone] 07/27/2020 Office Visit Ophthalmology David Lopez, [address] [place] [address] [phone] Health Maintenance Due Date Last Done Comments Zoster Recombinant Vaccine 2006 (SHINGRIX) (1 of 2) PNEUMOCOCCAL 0-64 YEARS COMBINED 10/04/2010 10/04/2009 SERIES (2 of 3 - PCV13) PAP SMEAR 04/26/2019 04/26/2014, 01/22/2010, 02/18/2008, Additional history exists EYE EXAM 07/13/2019 07/13/2018, 07/13/2018, 06/19/2017, Additional history exists INFLUENZA VACCINE (#1) 2019 09/21/2018, 09/10/2017, 09/04/2016, Additional history exists FOOT [...] of this encounter Implants Implanted Type Area Lockstitch Front Edge Tape Sewer Device Shelf Model / Identifier Expiration Serial / Lot Date Bipolar Head, Dorota Uhr Bipolar [id number] #[id number] - S0 BIPOLAR Right: Dorota 12/04/2022 [id number] / Implanted: Qty: 1 on 09/17/2018 by Eric Le MD at [facility] head Hip 0 / [id number] Head, Shelton V40 Cocr Lfit 26mm/+4 #[id number] - S0 Head Right: Dorota 09/29/2022 [id number] / Implanted: Qty: 1 on 09/17/2018 by Eric Le MD at [facility] Hip 0 / [id number] Screw, Synthes 6.5mm Rachel 32mm Thrd 70mm #208.436 - S208.436 SCREW Left: Synthes 208.436 / Implanted: Qty: 1 on 06/05/2018 by Vivek Trivedi MD at [facility] Hip 208.436 / 0 Screw, Synthes 6.5mm Rachel 16mm Thrd 70mm #208.409 - S208.409 SCREW Left: Synthes 208.409 / Implanted: Qty: 2 on 06/05/2018 by Vivek Trivedi MD at [facility] Hip 208.409 / 0 Screw, Synthes 7.3mm Rachel 16mm Thrd/70mm #208.870 - [id number] SCREW Left: Synthes 208.870 / Implanted: Qty: 1 on 06/05/2018 by Vivek Trivedi MD at [facility] Hip 208.870 / 0 Stem, Shelton Size 3 Accolade Ii 127deg #[id number] - S0 Stem Right: Shelton 04/14/2023 [id number] / Implanted: Qty: 1 on 09/17/2018 by Eric Le MD at [facility] Hip 0 / [id number] Washer, Synthes 13.0 Mm #219.99 - S219.99 WASHER Left: Synthes 219.99 / Implanted: Qty: 3 on 06/05/2018 by Vivek Trivedi MD at [facility] Hip 219.99 / 0 documented as of this encounter Results Not on filedocumented in this encounter Visit Diagnoses Diagnosis Type 2 diabetes mellitus without retinopathy - Primary Type II or unspecified type diabetes mellitus without mention of complication, not stated as uncontrolled Early cataracts, bilateral Unspecified cataract Essential hypertension Unspecified essential hypertension Dry eye syndrome, bilateral Pterygium of both eyes Pterygium, unspecified Refractive error Unspecified disorder of refraction and accommodation documented in this encounter Insurance Payer Benefit Plan / Subscriber ID Effective Phone Address Type Group Dates HIM [facility] [id number] 2016-Matthew [phone] 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
--- OUTSIDE RECORDS SUMMARY | 2019-11-12 19:49 | XMS REPORT | Summary of Care ---
:1955 Author Organization [facility] Address [address] [place] [address] Care Team Providers Name Role Phone Shahida Kang MD Primary Care Provider Dilma Hernandez MD Unavailable Lynne Borjas MD Unavailable Vee Marte MD Unavailable Worker, Transplant Social Unavailable Unavailable Gwen Adler MD Unavailable Reason for Visit Reason Comments LAB WORK Encounter Details Date Type Department Care Team Description 06/21/2019 Director Sports Visit [facility] Shahida Kang MD [facility] [address] Controlled type 2 diabetes mellitus with diabetic nephropathy, without long-term current use of insulin; Family Medicine - Lab, [facility] Pob I Medication monitoring encounter; [place] Encounter for long-term (current) use of medications; [facility] Situational depression; Drive Essential hypertension; [place], [place] Hypercholesterolemia [phone] Allergies Active Allergy Reactions Severity Noted [...] Active ULTRASOFT LANCETS) directed [address] 1 Drop 30 Each 5 [...] Take 1 tablet 90 tablet 3 Active No.65-Pupz-Mxfky Acid by mouth every 9 (PRENATABS FA) [...] cough evening. 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 (current) use of systemic steroids 05/11/2018 Immunization [...] Essential hypertension 2013 Overview: ICD10 Diagnosis Term Bus Washer Utility Need for prophylactic immunotherapy 2013 Encounter for long-term (current) use of other medications 2013 Hyperlipidemia 11/03/2012 Controlled type 2 diabetes mellitus with chronic kidney disease, 09/20/2012 unspecified CKD stage, unspecified assisted insulin use status Overview: ICD10 Diagnosis Term Bus Washer Utility Kidney replaced by transplant 09/19/2011 Renal [...] Osteoporosis 06/16/2008 04/11/2010 Overview: ICD10 Diagnosis Term Bus Washer Utility Essential hypertension 04/16/2007 04/11/2010 Overview: ICD10 Diagnosis Term Bus Washer Utility Renal failure 12/21/2006 04/11/2010 Overview: ICD10 Diagnosis Term Bus Washer Utility Hypoparathyroidism 12/01/2006 12/01/2006 Hypercalcemia 10/14/2006 04/11/2010 [...] Obstetrics & Gynecology Radha Agee, JULIO CESAR [address] [place] [phone] 08/18/2019 Office Visit Dermatology Licha Mtz MD [address] [place], [place] 179445 08/19/2019 Appointment Radiology [facility] [address] [place] [address] [phone] 10/14/2019 Office Visit Family Medicine Shahida Kang MD [address] [place] [phone] 10/28/2019 Office Visit Orthopedic Surgery Eric Le MD [address] [place], [place] 573483 11/10/2019 Office Visit Nephrology Dilma Hernandez MD [address] [place], [place] [address] 11/18/2019 Office Visit Endocrinology Diabetes & [facility]am[facility] Metabolism [address] [place] [address] [place] [address] [phone] Health Maintenance Due Date Last Done Comments [...] of this encounter Implants Implanted Type Area Regulatory Administrator Device Shelf Model / Identifier Expiration Serial / Lot Date Bipolar Head, Dorota Uhr Bipolar [id number] #[id number] - S0 BIPOLAR Right: Chadron 12/04/2022 [id number] / Implanted: Qty: 1 on 09/17/2018 by Eric Le MD at [facility] head Hip 0 / [id number] Head, Dorota V40 Cocr Lfit 26mm/+4 #[id number] - S0 Head Right: Chadron 09/29/2022 [id number] / Implanted: Qty: 1 on 09/17/2018 by Eric Le MD at [facility] Hip 0 / [id number] Screw, Synthes 6.5mm Rachel 32mm Thrd 70mm #208.436 - S208.436 SCREW Left: Synthes 208.436 / Implanted: Qty: 1 on 06/05/2018 by Vivek Trivedi MD at [facility] Hip 208.436 / 0 Screw, Synthes 6.5mm Rachel 16mm Thrd 70mm #208.409 - S208.409 SCREW Left: Synthes 208.409 / Implanted: Qty: 2 on 06/05/2018 by Vivek Trivedi MD at [facility] Hip 208.409 / 0 Screw, Synthes 7.3mm Rachel 16mm Thrd/70mm #208.870 - S208.870 SCREW Left: Synthes 208.870 / Implanted: Qty: 1 on 06/05/2018 by Vivek Trivedi MD at [facility] Hip 208.870 / 0 Stem, Dorota Size 3 Accolade Ii 127deg #[id number] - S0 Stem Right: Chadron 04/14/2023 [id number] / Implanted: Qty: 1 on 09/17/2018 by Eric Le MD at [facility] Hip 0 / [id number] Washer, Synthes 13.0 Mm #219.99 - S219.99 WASHER Left: Synthes 219.99 / Implanted: Qty: 3 on 06/05/2018 by Vivek Trivedi MD at [facility] Hip 219.99 / 0 documented as of this encounter Procedures Procedure Name Priority Date/Time Associated Diagnosis Comments GLYCOSYLATED Routine 06/21/2019 9:17 Controlled type 2 Results for this HEMOGLOBIN (A1C) AM CDT diabetes mellitus procedure are in with diabetic the results nephropathy, without section. long-term current use of insulin Medication monitoring encounter Encounter for long-term (current) use of medications LIPID PANEL Routine 06/21/2019 9:17 Controlled type 2 Results for this (13524)(TOTAL AM CDT diabetes mellitus procedure are in CHOLESTEROL, with diabetic the results TRIGLYCERIDES, HDL) nephropathy, without section. long-term current use of insulin Hypercholesterolemia Medication monitoring encounter Encounter for long-term (current) use of medications COMP. METABOLIC PANEL Routine 06/21/2019 9:17 Controlled type 2 Results for this (20532) AM CDT diabetes mellitus procedure are in with diabetic the results nephropathy, without section. long-term current use of insulin Essential hypertension Hypercholesterolemia Medication monitoring encounter Encounter for long-term (current) use of medications THYROID STIMULATING Routine 06/21/2019 9:17 Situational Results for this HORMONE AM CDT depression procedure are in Essential the results hypertension section. Medication monitoring encounter Encounter for long-term (current) use of medications documented in this encounter Results COMP. METABOLIC PANEL (18743) (06/21/2019 9:17 AM CDT) NA 138 135 - 145 [facility] mmol/L [facility] K 4.6 3.5 - 5.0 [facility] mmol/L [facility] CL 105 98 - 108 mmol/L [facility] CO2 TOTAL 24 23 - 31 mmol/L [facility] AGAP 9 2 - 16 [facility] BUN 25 (H) 7 - 23 mg/dL [facility] GLUCOSE 90 70 - 110 mg/dL [facility] CREATININE 1.24 (H) 0.50 - 1.04 [facility] mg/dL HOSPITAL LAB[facility] TOTAL BILI 0.6 0.1 - 1.1 mg/dL [facility] CALCIUM 9.6 8.6 - 10.6 [facility] mg/dL [facility] T PROTEIN 6.8 6.3 - 8.2 g/dL [facility] ALBUMIN 4.0 3.5 - 5.0 g/dL [facility] ALK PHOS 79 34 - 122 U/L [facility] ALT(SGPT) 16 9 - 51 U/L [facility] AST(SGOT) 19 13 - 40 U/L [facility] eGFR Calculation 43.7 mL/min/1.73m2 [facility] (Non- HOSPITAL LABORATORY [place]) eGFR Calculation 53.0 mL/min/1.73m2 [facility] LABORATORY Specimen Blood - ARM, LEFT Narrative Performed At Association of Glomerular Filtration Rate (GFR) [facility] and Staging of Kidney Disease* + + +- + | GFR (mL/min/1.73 m2)| With Kidney Damage|Without Kidney Damage + + +- + |>90| Stage one| Normal + + +- + |60-89|S tage two| Decreased GFR + + +- + |30-59|S tage three| Stage three + + +- + |15-29|S tage four | Stage four + + +- + |<15 (or dialysis)|Stage five | Stage five + + +- + *Each stage assumes the associated GFR level has been in effect for at least three months.Stages 1 to 5, with or without kidney disease, indicate chronic kidney disease. Notes: Determination of stages one and two (with eGFR >59mL/min/1.73 m2) requires estimation of kidney damage for at least three months as defined by structural or functional abnormalities of the kidney, manifested by either: Pathological abnormalities or Markers of kidney damage (including abnormalities in the composition of the blood or urine or abnormalities in imaging tests). Performing Organization Address City/[facility] Hospitalcode Phone Number [facility] CLIA: [id number], [address] LIPID PANEL (89738)(TOTAL CHOLESTEROL, TRIGLYCERIDES, HDL) (06/21/2019 9:17 AM CDT) CHOL 168 120 - 200 mg/dL [facility] HDL 24 (L) >50 mg/dL [facility] HDLC RATIO 7.0 (H) <=4.5 [facility] TRIG 278 (H) 30 - 170 mg/dL [facility] LDL CHOL 88 <=160 mg/dL [facility] VLDL 56 5 - 60 mg/dL [facility] Specimen Blood - ARM, LEFT Performing Organization Address [facility]/Zipcode Phone Number [facility] CLIA: [id number], [address] [place] [address] THYROID STIMULATING HORMONE (06/21/2019 9:17 AM CDT) TSH 1.18 0.45 - 4.70 mIU/L [facility] Specimen Blood - ARM, LEFT Performing Organization Address City/State/Zipcode Phone Number [facility] CLIA: [id number], [address] [place] [address] GLYCOSYLATED HEMOGLOBIN (A1C) (06/21/2019 9:17 AM CDT) HGB A1C 6.0 4.0 - 6.0 % NGSP [facility] Specimen Blood - ARM, LEFT Narrative Performed At %A1C (NGSP) Interpretation (ADA) [facility] 4.8-5.6 Normal or (Non-Diabetic Range) 5.7-6.4 Increased Risk (Pre-Diabetic) >6.5Diabetes Indicated Performing Organization Address [facility] Hospitalcode Phone Number [facility] CLIA: [id number], [address] [place] [address] [facility] [address] documented in this encounter Visit Diagnoses Diagnosis Controlled type 2 diabetes mellitus with diabetic nephropathy, without long- term current use of insulin Medication monitoring encounter Encounter for therapeutic drug monitoring Encounter for long-term (current) use of medications Encounter for long-term (current) use of other medications Situational depression Essential hypertension Unspecified essential hypertension Hypercholesterolemia Pure hypercholesterolemia documented in this encounter Insurance Payer Benefit Plan / Subscriber ID Effective Phone Address Type Group Dates HIM [facility] [id number] 2016-Matthew [phone] [phone] [place] [address] documented as of this encounter Advance Directives Type Date Recorded Patient Party Plan Demonstrator Explanation Advance Directives and Living Will Power of Sign Maintenance"
--- OUTSIDE RECORDS SUMMARY | 2019-11-12 19:49 | XMS REPORT | Summary of Care ---
:1955 Author Organization [facility] Address [address] [place] [address] Care Team Providers Name Role Phone Shahida Kang MD Primary Care Provider Dilma Hernandez MD Unavailable Lynne Borjas MD Unavailable Vee Marte MD Unavailable Worker, Transplant Social Unavailable Unavailable Gwen Adler MD Unavailable Reason for Visit Reason Comments Diabetic Eye Exam Encounter Details Date Type Department Care Team Description 07/27/2019 Office Visit [facility] Eye David Lopez Type 2 diabetes mellitus without retinopathy (Primary Dx); [facility] D, OD Early cataracts, bilateral; [address] [facility] Essential hypertension; [place] [address] Dry eye syndrome, bilateral; [place], [place] [phone] Pterygium of both eyes; [phone] Refractive error [phone] Allergies Active Allergy Reactions Severity Noted Date [...] Take 1 tablet 90 tablet 3 Active No.89-Ukqs-Hqblq Acid by mouth every 9 (PRENATABS FA) [...] Overview: Added automatically from request for surgery [id number] Situational mixed anxiety and depressive disorder 06/21/2018 Fracture of femoral neck, left, closed 06/04/2018 Obesity (BMI 30-39.9) 06/04/2018 Closed fracture of neck of femur 06/03/2018 Overview: Bilateral Osteoporosis, unspecified osteoporosis type, unspecified pathological 2017 fracture presence longterm (current) use of systemic steroids 05/11/2018 Immunization counseling 04/14/2018 PMR (polymyalgia rheumatica) 04/14/2018 Low back pain without sciatica, unspecified back pain laterality, 04/14/2018 unspecified chronicity Renal cyst 03/22/2018 Overview: Two cysts of her transplanted kidney per US 03/11/2018 Muscle weakness 02/15/2018 Myalgia 02/15/2018 Immunosuppressive management encounter following kidney transplant 09/24/2017 Early cataracts, bilateral 06/19/2017 Dry eye syndrome, bilateral 06/19/2017 Refractive error 06/19/2017 Positive DUDLYE (antinuclear antibody) 1:80 01/08/2017 Atypical rash 01/08/2017 Well woman exam 10/09/2016 Encounter for screening mammogram for breast cancer 10/09/2016 Need for Tdap vaccination 10/09/2016 Screening for colon cancer 10/09/2016 Essential hypertension 2013 Overview: ICD10 Diagnosis Term Gambling Cashier Utility Need for prophylactic immunotherapy 2013 Encounter for long-term (current) use of other medications 2013 Hyperlipidemia 11/03/2012 Controlled type 2 diabetes mellitus with chronic kidney disease, 09/20/2012 unspecified CKD stage, unspecified bed bug exterminator insulin use status Overview: ICD10 Diagnosis Term Gambling Cashier Utility Kidney replaced by transplant 09/19/2011 Renal [...] Osteoporosis 06/16/2008 04/11/2010 Overview: ICD10 Diagnosis Term Gambling Cashier Utility Essential hypertension 04/16/2007 04/11/2010 Overview: ICD10 Diagnosis Term Gambling Cashier Utility Renal failure 12/21/2006 04/11/2010 Overview: ICD10 Diagnosis Term Gambling Cashier Utility Hypoparathyroidism 12/01/2006 12/01/2006 Hypercalcemia 10/14/2006 04/11/2010 [...] CDT documented in this encounter Progress Notes aDvid Lopez, OD - 07/27/2019 10:45 AM CDT [...] MOUTH EVERY MORNING WITH BREAKFAST. PNV COMB NO.49-LZFV-NJCRL ACID (PRENATABS FA) 29-1 MG TAB Take [...] or contact lenses. Final Rx Sphere Cylinder [place] Dist [facility] Add Near VA Right +0.50 +0.75 010 20/20-1 +3.00 20/20 Left -0.50 +0.50 165 20/20 +3.00 20/20 Expiration Date: 07/27/2020 Unlike signs are correct Disposition Patient advised to return to the clinic as scheduled for pertinent surveillance care. David Lopez OD Biodiesel Product Manager Clinical Professor Clinical and Sheep And Wheat Farmer: [employer] [facility] [employer] [facility] Department of Ophthalmology And Visual SciencesElectronically signed by David Lopez OD at 2018 1:26 PM CDTdocumented in this encounter Plan of Treatment Date Type Specialty Care Team Description 08/18/2019 Office Visit Dermatology Licha Mtz MD [address] [place] [address] [phone] 08/19/2019 Appointment Radiology Familia Nava [address] [place] [address] Dr [address] [place] [address] 041965 10/14/2019 Office Visit Family Medicine Shahida Kang MD [address] [place] [address] [place] [phone] 10/28/2019 Office Visit Orthopedic Surgery Eric Le MD [address] [place], [place] 415953 11/10/2019 Office Visit Nephrology Dilma Hernandez MD [address] [place] [address] [phone] 11/18/2019 Office Visit Endocrinology Diabetes & Familia Nava [address] Taylor [address] [place] [address] [phone] 07/27/2020 Office Visit Ophthalmology David Lopez, [address] [place] [address] [phone] Health Maintenance Due Date Last Done Comments [...] of this encounter Implants Implanted Type Area Manager Maritime Device Shelf Model / Identifier Expiration Serial / Lot Date Bipolar Head, Dorota Uhr Bipolar [id number] #[id number] - S0 BIPOLAR Right: Dorota 12/04/2022 UH1-42-26 / Implanted: Qty: 1 on 09/17/2018 by Eric Le MD at [facility] head Hip 0 / [id number] Head, [place] V40 Cocr Lfit 26mm/+4 #[id number] - S0 Head Right: Dorota 09/29/2022 6260-9-226 / Implanted: Qty: 1 on 09/17/2018 by Eric Le MD at [facility] Hip 0 / [id number] Screw, Synthes 6.5mm [place] 32mm Thrd 70mm #208.436 - S208.436 SCREW Left: Synthes 208.436 / Implanted: Qty: 1 on 06/05/2018 by Vivek Trivedi MD at [facility] Hip 208.436 / 0 Screw, Synthes 6.5mm [place] 16mm Thrd 70mm #208.409 - S208.409 SCREW Left: Synthes 208.409 / Implanted: Qty: 2 on 06/05/2018 by Vivek Trivedi MD at [facility] Hip 208.409 / 0 Screw, Synthes 7.3mm [place] 16mm Thrd/70mm #208.870 - S208.870 SCREW Left: Synthes 208.870 / Implanted: Qty: 1 on 06/05/2018 by Vivek Trivedi MD at [facility] Hip 208.870 / 0 Stem, [place] Size 3 Accolade Ii 127deg #[id number] - S0 Stem Right: [place] 04/14/2023 2034-0369 / Implanted: Qty: 1 on 09/17/2018 by Eric Le MD at [facility] Hip 0 / [id number] Washer, Synthes 13.0 Mm #219.99 - S219.99 WASHER Left: Synthes 219.99 / Implanted: Qty: 3 on 06/05/2018 by Vivek Trivedi MD at [facility] Hip 219.99 / 0 documented as [...] Effective Phone Address Type Group Dates [facility] [id number] 2016-Matthew [phone] [address] [employer] [id number] [place] [address] documented as of this encounter Advance Directives Type Date Recorded Patient Edge Inker Uppers Explanation Advance Directives and Living Will Power of Switchman
--- OUTSIDE RECORDS SUMMARY | 2019-11-12 19:49 | XMS REPORT | Summary of Care ---
:1955 Author Organization [facility] Address [address] [place] [address] Care Team Providers Name Role Phone Shahida Kang MD Primary Care Provider Dilma Hernandez MD Unavailable Lynne Borjas MD Unavailable Vee Marte MD Unavailable Worker, Transplant Social Unavailable Unavailable Gwen Adler MD Unavailable Reason for Visit Reason Comments Refill Request Encounter Details Date Type Department Care Team Description 07/04/2019 Refill [facility] Family Medicine Shahida Kang MD Refill Request - [address] [place] [address] [place] [address] Allergies Active Allergy Reactions Severity Noted Date Comments Adhesive Tape-Silicones Rash High 01/28/2019 Codeine Nausea and/or Vomiting High 01/28/2019 Iodine And Iodide Containing Nausea and/or Vomiting 04/22/2019 Products Sirolimus (Bulk) Rash 02/03/2019 documented as of this encounter (statuses as of 07/05/2019) Medications Medication Sig Dispensed Refills Start Date End Date Status Lancets (ONE TOUCH Use as directed 100 Each 5 07/28/2014 Active ULTRASOFT LANCETS) [facility]ORINE [facility] 1 Drop in 30 Each [...] tablet by 90 tablet 3 02/11/2019 Active No.26-Llyp-Ssaui Acid mouth every (PRENATABS FA) 29-1 mg morning. Tab spironolactone 25 mg Take 1 tablet by 30 tablet 5 02/22/2019 Active tabletIndications: mouth daily. Essential hypertension, Edema, unspecified type GLIPIZIDE XL 5 [...] Active tabletIndications: mouth every Persistent cough evening. mycophenolate sodium Take 2 tablets 120 tablet 5 06/30/2019 Active (MYFORTIC) 360 mg EC by mouth every tablet 12 (twelve) hours. Z94.0 documented as of this encounter (statuses as of 07/05/2019) Active Problems Problem Noted Date Nausea & vomiting 04/14/2019 Urinary tract infection 01/28/2019 Closed right hip fracture 09/17/2018 Closed fracture of right hip, initial encounter 09/16/2018 Overview: Added automatically from request for surgery [id number] Situational mixed anxiety and depressive disorder 06/21/2018 Fracture of femoral neck, left, closed 06/04/2018 Obesity (BMI 30-39.9) 06/04/2018 Closed fracture of neck of femur 06/03/2018 Overview: Bilateral Osteoporosis, unspecified osteoporosis type, unspecified pathological 2017 fracture presence halfway (current) use of systemic steroids 05/11/2018 Immunization [...] Essential hypertension 2013 Overview: ICD10 Diagnosis Term Telecommunicator Supervisor Utility Need for prophylactic immunotherapy 2013 Encounter for long-term (current) use of other medications 2013 Hyperlipidemia 11/03/2012 Controlled type 2 diabetes mellitus with chronic kidney disease, 09/20/2012 unspecified CKD stage, unspecified snf insulin use status Overview: ICD10 Diagnosis Term Telecommunicator Supervisor Utility Kidney replaced by transplant 09/19/2011 Renal transplant 05/22/2010 Cholelithiasis 03/07/2010 GERD (gastroesophageal reflux disease) 03/07/2010 History of end stage renal disease 04/16/2007 Generalized osteoarthrosis, unspecified site 12/01/2006 Hyperparathyroidism 12/01/2006 documented as of this encounter (statuses as of 07/05/2019) Resolved Problems Problem Noted Date Resolved Date Local infection of wound 2010 07/08/2016 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 05/02/20102015 disease stage I through stage IV, or unspecified Other reasons for seeking consultation 06/16/2008 04/11/2010 Overview: Mammogram Renal dialysis status 06/16/2008 04/11/2010 Overview: On peritoneal dialysis Osteoporosis 06/16/2008 04/11/2010 Overview: ICD10 Diagnosis Term Telecommunicator Supervisor Utility Essential hypertension 04/16/2007 04/11/2010 Overview: ICD10 Diagnosis Term Telecommunicator Supervisor Utility Renal failure 12/21/2006 04/11/2010 Overview: ICD10 Diagnosis Term Telecommunicator Supervisor Utility Hypoparathyroidism 12/01/2006 12/01/2006 Hypercalcemia 10/14/2006 04/11/2010 documented as of this encounter (statuses as of 07/05/2019) Immunizations Name Administration Dates Next Due H1n1 [...] Visit Obstetrics & Gynecology Radha Agee PA-C [address] [place] [address] [phone] 08/18/2019 Office Visit Dermatology Licha Mtz MD [address] [place], [place] [address]405 08/19/2019 Appointment Radiology Familia Nava [address] [place] [address] [address] [phone] 10/14/2019 Office Visit Family Medicine Shahida Kang MD [address] [place] [phone] 10/28/2019 Office Visit Orthopedic Surgery Eric Le MD [address] [place], [place] [address]783 11/10/2019 Office Visit Nephrology Dilma Hernandez MD [address] [place] [address] [phone] 11/18/2019 Office Visit Endocrinology Diabetes & Familia Nava [address] [address] [phone] Health Maintenance Due Date Last Done Comments [...] of this encounter Implants Implanted Type Area Tool Lapper Hand Device Shelf Model / Identifier Expiration Serial / Lot Date Bipolar Head, [place] Uhr Bipolar [id number] #[id number] - S0 BIPOLAR Right: [place] 12/04/2022 UH1-42-26 / Implanted: Qty: 1 on 09/17/2018 by Eric Le MD at [facility] head Hip 0 / [id number] Head, [place] V40 Cocr Lfit 26mm/+4 #6260-9-226 - S0 Head Right: [place] 09/29/2022 6260-9-226 / Implanted: Qty: 1 on 09/17/2018 by Eric Le MD at [facility] Hip 0 / [id number] Screw, Synthes 6.5mm [place] 32mm Thrd 70mm #208.436 - S208.436 SCREW Left: Synthes 208.436 / Implanted: Qty: 1 on 06/05/2018 by Vivek Trivedi MD at [facility] Hip 208.436 / 0 Screw, Synthes 6.5mm [place] 16mm Thrd 70mm #208.409 - S208.409 SCREW Left: Synthes 208.409 / Implanted: Qty: 2 on 06/05/2018 by Vivek Trivedi MD at [facility] Hip 208.409 / 0 Screw, Synthes 7.3mm [place] 16mm Thrd/70mm #208.870 - S208.870 SCREW Left: Synthes 208.870 / Implanted: Qty: 1 on 06/05/2018 by Vivek Trivedi MD at [facility] Hip 208.870 / 0 Stem, [place] Size 3 Accolade Ii 127deg #1624-8899 - S0 Stem Right: [place] 04/14/2023 2400-8109 / Implanted: Qty: 1 on 09/17/2018 by Eric Le MD at [facility] Hip 0 / [id number] Washer, Synthes 13.0 Mm #219.99 - S219.99 WASHER Left: Synthes 219.99 / Implanted: Qty: 3 on 06/05/2018 by Vivek Trivedi MD at [facility] Hip 219.99 / 0 documented as of this encounter Results Not on filedocumented in this encounter Visit Diagnoses Diagnosis Gastroesophageal reflux disease, esophagitis presence not specified documented in this encounter Insurance Payer Benefit Plan / Subscriber ID Effective Phone Address Type Group Dates [facility] [id number] 2016-Matthew [phone] [address] HMO HEALTH Physician Practice [employer] HEALTH CHOICE nt [id number] [place] [address] documented as of this encounter Advance Directives Type Date Recorded Patient Enterer Explanation Advance Directives and Living Will Power of Eyewear Consultant
--- OUTSIDE RECORDS SUMMARY | 2019-11-12 19:50 | XMS REPORT | Summary of Care ---
:[address] [facility] Address [address] [place] [address] Care Team Providers Name Role Phone Shahida Kang MD Primary Care Provider Dilma Hernandez MD Unavailable Lynne Borjas MD Unavailable Vee Marte MD Unavailable Unavailable Worker, Transplant Social Unavailable Unavailable Gwen Adler MD Unavailable Reason for Visit Reason Comments Talk To Nurse s/p kidney txpl Post Transplant Encounter Details Date Type Department Care Team Description 07/29/2019 Telephone [facility] Transplant- Dilma Hernandez Talk To Nurse (s/p Teodora Aguila MD kidney txpl ); Post [facility] [address] [facility] Transplant [address] [place] [address] Allergies Active Allergy Reactions Severity Noted Date Comments Adhesive Tape-Silicones Rash High 01/28/2019 Codeine Nausea and/or Vomiting High 01/28/2019 Iodine And Iodide Containing Nausea and/or Vomiting 04/22/2019 Products Sirolimus (Bulk) Rash 02/03/2019 documented as of this encounter (statuses as of 08/01/2019) Medications Medication Sig Dispensed Refills Start End [...] Take 1 tablet 90 tablet 3 Active No.39-Shxw-Mlnqc Acid by mouth every 9 (PRENATABS FA) [...] vomiting with nausea, hours. unspecified vomiting type predniSONE 5 mg Take 0.5 30 tablet [...] mg TAKE 1 CAPSULE 30 capsule 0 07/10/201 Active capsule BY MOUTH EVERY 9 MORNING WITH BREAKFAST. montelukast 10 mg Take 1 tablet 30 [...] every 12 eye syndrome, (twelve) bilateral hours. irbesartan 75 mg Take 1 tablet 30 tablet 11 Active tablet by mouth at 9 bedtime. lisinopril 5 mg Take 1 tablet 30 tablet 11 08/01/20 Discontinued tabletIndications: by mouth 9 19 Essential daily. hypertension documented as of this encounter (statuses as of 08/01/2019) Active Problems Problem Noted Date Nausea & vomiting 04/14/2019 Urinary tract infection 01/28/2019 Closed right hip fracture 09/17/2018 Closed fracture of right hip, initial encounter 09/16/2018 Overview: Added automatically from request for surgery [id number] Situational mixed anxiety and depressive disorder 06/21/2018 Fracture of femoral neck, left, closed 06/04/2018 Obesity (BMI 30-39.9) 06/04/2018 Closed fracture of neck of femur 06/03/2018 Overview: Bilateral Osteoporosis, unspecified osteoporosis type, unspecified pathological 2017 fracture presence emt intermediate (current) use of systemic steroids 05/11/2018 Immunization [...] Essential hypertension 2013 Overview: ICD10 Diagnosis Term Program Paraprofessional Utility Need for prophylactic immunotherapy 2013 Encounter for long-term (current) use of other medications 2013 Hyperlipidemia 11/03/2012 Controlled type 2 diabetes mellitus with chronic kidney disease, 09/20/2012 unspecified CKD stage, unspecified watermelon inspector insulin use status Overview: ICD10 Diagnosis Term Program Paraprofessional Utility Kidney replaced by transplant 09/19/2011 Renal transplant 05/22/2010 Cholelithiasis 03/07/2010 GERD (gastroesophageal reflux disease) 03/07/2010 History of end stage renal disease 04/16/2007 Generalized osteoarthrosis, unspecified site 12/01/2006 Hyperparathyroidism 12/01/2006 documented as of this encounter (statuses as of 08/01/2019) Resolved Problems Problem Noted Date Resolved Date Local infection of wound 2010 07/08/2016 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 05/02/20102015 disease stage I through stage IV, or unspecified Other reasons for seeking consultation 06/16/2008 04/11/2010 Overview: Mammogram Renal dialysis status 06/16/2008 04/11/2010 Overview: On peritoneal dialysis Osteoporosis 06/16/2008 04/11/2010 Overview: ICD10 Diagnosis Term Program Paraprofessional Utility Essential hypertension 04/16/2007 04/11/2010 Overview: ICD10 Diagnosis Term Program Paraprofessional Utility Renal failure 12/21/2006 04/11/2010 Overview: ICD10 Diagnosis Term Program Paraprofessional Utility Hypoparathyroidism 12/01/2006 12/01/2006 Hypercalcemia 10/14/2006 04/11/2010 documented as of this encounter (statuses as of 08/01/2019) Immunizations Name Administration Dates Next Due H1n1 [...] Office Visit Dermatology Licha Mtz MD [address] [place] [address] [phone] 08/19/2019 Appointment Radiology Familia Nava [address] Taylor [address] [place] [address] [phone] 10/03/2019 Office [place] [address] [place] [phone] 10/14/2019 Office Visit Family Medicine Shahida Kang MD [address] [place] [address] [facility] [place] [address] [phone] 10/28/2019 Office Visit Orthopedic Surgery Eric Le MD [address] [place] [address] [phone] 11/10/2019 Office Visit Nephrology Dilma Hernandez MD [address] [place] [address] [phone] 11/18/2019 Office Visit Endocrinology Diabetes & Familia Nava [address] Taylor [address] [place] [address] [phone] 07/27/2020 Office Visit Ophthalmology David Lopez, [address] [address] [phone] Health Maintenance Due Date Last Done Comments Zoster Recombinant Vaccine 2006 (SHINGRIX) (1 of 2) PNEUMOCOCCAL 0-64 YEARS COMBINED 10/04/2010 10/04/2009 SERIES (2 of 3 - PCV13) PAP SMEAR 04/26/2019 04/26/2014, 01/22/2010, 02/18/2008, Additional history exists INFLUENZA VACCINE (#1) 2019 [...] 06/21/2020 06/21/2019, 02/03/2019, 04/29/2018, Additional history exists EYE EXAM 07/27/2020 07/27/2019, 07/27/2019, 07/13/2018, Additional history exists DTaP,Tdap,and Td Vaccines (2 - Td) 10/09/2026 10/09/2016 COLONOSCOPY 11/06/2027 11/06/2017 HEPATITIS C (HCV) SCREEN Completed 05/02/2010, 03/07/2010, 12/06/2009, Additional history exists documented as of this encounter Implants Implanted Type Area Hoop Maker Helper Machine Device Shelf Model / Identifier Expiration Serial / Lot Date Bipolar Head, [place] Uhr Bipolar [id number] #[id number] - S0 BIPOLAR Right: [place] 12/04/2022 UH1-42-26 / Implanted: Qty: 1 on 09/17/2018 by Eric Le MD at [facility] head Hip 0 / [id number] Head, Dorota V40 Cocr Lfit 26mm/+4 #[id number] - S0 Head Right: [place] 09/29/2022 6260-9-226 / Implanted: Qty: 1 on 09/17/2018 by Eric Le MD at [facility] Hip 0 / [id number] Screw, Synthes 6.5mm [place] 32mm Thrd 70mm #208.436 - S208.436 SCREW Left: Synthes 208.436 / Implanted: Qty: 1 on 06/05/2018 by Vivek Trivedi MD at [facility] Hip 208.436 / 0 Screw, Synthes 6.5mm [place] 16mm Thrd 70mm #208.409 - S208.409 SCREW Left: Synthes 208.409 / Implanted: Qty: 2 on 06/05/2018 by Vivek Trivedi MD at [facility] Hip 208.409 / 0 Screw, Synthes 7.3mm [place] 16mm Thrd/70mm #208.870 - S208.870 SCREW Left: Synthes 208.870 / Implanted: Qty: 1 on 06/05/2018 by Vivek Trivedi MD at [facility] Hip 208.870 / 0 Stem, Dorota Size 3 Accolade Ii 127deg #9022-4028 - S0 Stem Right: Dorota 04/14/2023 2961-5849 / Implanted: Qty: 1 on 09/17/2018 by Eric Le MD at [facility] Hip 0 / [id number] Washer, Synthes 13.0 Mm #219.99 - S219.99 WASHER Left: Synthes 219.99 / Implanted: Qty: 3 on 06/05/2018 by Vivek Trivedi MD at [facility] Hip 219.99 / 0 documented as of this encounter Results Not on filedocumented in this encounter Insurance Payer Benefit Plan / Subscriber ID Effective Phone Address Type Group Dates [facility] [id number] 2016-Matthew [phone] HE[address] [employer] HEALTH CHOICE [id number] [place] [id number] documented as of this encounter Advance Directives Type Date Recorded Patient Park Warden Explanation Advance Directives and Living Will Power of Pi/Senior Research Associate
--- OUTSIDE RECORDS SUMMARY | 2019-11-12 19:50 | XMS REPORT | Summary of Care ---
:1955 Author Organization [facility] Address [address] [place] [address] Care Team Providers Name Role Phone Shahida Kang MD Primary Care Provider Dilma Hernandez MD Unavailable Lynne Borjas MD Unavailable Vee Marte MD Unavailable Worker, Transplant Social Unavailable Unavailable Gwen Adler MD Unavailable Reason for Visit Reason Comments Talk To Nurse s/p kidney txpl Encounter Details Date Type Department Care Team Description 07/29/2019 Telephone [facility] Transplant- Dilma Hernandez Talk To Nurse (s/p Teodora Aguila MD kidney txpl ) [facility] [address] [facility] [address] [place] [id number] Allergies Active Allergy Reactions Severity Noted Date Comments Adhesive Tape-Silicones Rash High 01/28/2019 Codeine Nausea and/or Vomiting High 01/28/2019 Iodine And Iodide Containing Nausea and/or Vomiting 04/22/2019 Products Sirolimus (Bulk) Rash 02/03/2019 documented as of this encounter (statuses as of 07/29/2019) Medications Medication Sig Dispensed Refills Start Date End Date Status Lancets (ONE TOUCH Use as directed 100 Each 5 07/28/2014 Active ULTRASOFT LANCETS) Misc cycloSPORINE 25 mg Take 2 capsules 180 [...] tablet by 90 tablet 3 02/11/2019 Active No.53-Amdc-Tpnle Acid mouth every (PRENATABS FA) 29-1 mg [...] capsule BY MOUTH EVERY MORNING WITH BREAKFAST. montelukast 10 mg Take 1 tablet by 30 tablet 5 06/19/2019 Active tabletIndications: mouth every Persistent cough evening. mycophenolate sodium Take 2 tablets 120 tablet 5 06/30/2019 Active (MYFORTIC) 360 mg EC by mouth every tablet 12 (twelve) hours. 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 bilateral documented as of this encounter (statuses as of 07/29/2019) Active Problems Problem Noted Date Nausea & vomiting 04/14/2019 Urinary tract infection 01/28/2019 Closed right hip fracture 09/17/2018 Closed fracture of right hip, initial encounter 09/16/2018 Overview: Added automatically from request for surgery [id number] Situational mixed anxiety and depressive disorder 06/21/2018 Fracture of femoral neck, left, closed 06/04/2018 Obesity (BMI 30-39.9) 06/04/2018 Closed fracture of neck of femur 06/03/2018 Overview: Bilateral Osteoporosis, unspecified osteoporosis type, unspecified pathological 2017 fracture presence FDC (current) use of systemic steroids 05/11/2018 Immunization [...] Essential hypertension 2013 Overview: ICD10 Diagnosis Term [employer] Need for prophylactic immunotherapy 2013 Encounter for long-term (current) use of other medications 2013 Hyperlipidemia 11/03/2012 Controlled type 2 diabetes mellitus with chronic kidney disease, 09/20/2012 unspecified CKD stage, unspecified long-term insulin use status Overview: ICD10 Diagnosis Term [employer] Kidney replaced by transplant 09/19/2011 Renal transplant 05/22/2010 Cholelithiasis 03/07/2010 GERD (gastroesophageal reflux disease) 03/07/2010 History of end stage renal disease 04/16/2007 Generalized osteoarthrosis, unspecified site 12/01/2006 Hyperparathyroidism 12/01/2006 documented as of this encounter (statuses as of 07/29/2019) Resolved Problems Problem Noted Date Resolved Date Local infection of wound 2010 07/08/2016 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 05/02/20102015 disease stage I through stage IV, or unspecified Other reasons for seeking consultation 06/16/2008 04/11/2010 Overview: Mammogram Renal dialysis status 06/16/2008 04/11/2010 Overview: On peritoneal dialysis Osteoporosis 06/16/2008 04/11/2010 Overview: ICD10 Diagnosis Term [employer] Essential hypertension 04/16/2007 04/11/2010 Overview: ICD10 Diagnosis Term [employer] Renal failure 12/21/2006 04/11/2010 Overview: ICD10 Diagnosis Term [employer] Hypoparathyroidism 12/01/2006 12/01/2006 Hypercalcemia 10/14/2006 04/11/2010 documented as of this encounter (statuses as of 07/29/2019) Immunizations Name Administration Dates Next Due H1n1 [...] Office Visit Dermatology Licha Mtz MD [address] [place], [place] [address] 08/19/2019 Appointment Radiology [facility] [address] Taylor [address] [place] [address] [phone] 10/03/2019 Office [place] [address] [place] [phone] 10/14/2019 Office Visit Family Medicine Shahida Kang MD [address] [place] [address] [facility] [place] [phone] 10/28/2019 Office Visit Orthopedic Surgery Eric Le MD [address] [place], [place] [phone] 11/10/2019 Office Visit Nephrology Dilma Hernandez MD [address] [place] [address] [phone] 11/18/2019 Office Visit Endocrinology [facility] [address] Taylor [address] [place] [address] [phone] 07/27/2020 Office Visit Ophthalmology David Lopez, OD [address] [place], [place] [address] Health Maintenance Due Date Last Done Comments [...] of this encounter Implants Implanted Type Area Marketing Community Liaison Device Shelf Model / Identifier Expiration Serial / Lot Date Bipolar Head, Dorota Uhr Bipolar [id number] #[id number] - S0 BIPOLAR Right: Dorota 12/04/2022 [id number] / Implanted: Qty: 1 on 09/17/2018 by Eric Le MD at [facility] head Hip 0 / [id number] Head, Dorota V40 Cocr Lfit 26mm/+4 #[id number] - S0 Head Right: [place] 09/29/2022 [id number] / Implanted: Qty: 1 on 09/17/2018 by Eric Le MD at [facility] Hip 0 / [id number] Screw, Synthes 6.5mm Rachel 32mm Thrd 70mm #208.436 - [id number] SCREW Left: Synthes 208.436 / Implanted: Qty: 1 on 06/05/2018 by Vivek Trivedi MD at [facility] Hip 208.436 / 0 Screw, Synthes 6.5mm Rachel 16mm Thrd 70mm #208.409 - [id number] SCREW Left: Synthes 208.409 / Implanted: Qty: 2 on 06/05/2018 by Vivek Trivedi MD at [facility] Hip 208.409 / 0 Screw, Synthes 7.3mm Rachel 16mm Thrd/70mm #208.870 - [id number] SCREW Left: Synthes 208.870 / Implanted: Qty: 1 on 06/05/2018 by Vivek Trivedi MD at [facility] Hip 208.870 / 0 Stem, [place] Size 3 Accolade Ii 127deg #[id number] - S0 Stem Right: Dorota 04/14/2023 [id number] / Implanted: Qty: 1 on 09/17/2018 by Eric Le MD at [facility] Hip 0 / [id number] Washer, Synthes 13.0 Mm #219.99 - S219.99 WASHER Left: Synthes 219.99 / Implanted: Qty: 3 on 06/05/2018 by Vivek Trivedi MD at [facility] Hip 219.99 / 0 documented as of this encounter Results Not on filedocumented in this encounter Insurance Payer Benefit Plan / Subscriber ID Effective Phone Address Type Group Dates [facility] [id number] 2016-Matthew [phone] 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
[2019-11-12] MEDS ORDERED: NA CHLORIDE 0.9% 1,000 ML ONE (20:35)
[2019-11-12] MEDS ORDERED: CEFTRIAXONE/SWI 1gm 1 GM/10 ML SYR ONE (20:35)
[2019-11-12 20:44] LABS: Absolute Lymphocytes (CBC) 0.8 K/uL (0.7-4.9); Basophils % 0.3 % (0-1.3); Protime INR 0.98; RBC Red Blood Cell Count 4.03 M/uL (3.86-4.86)
[2019-11-12 20:48] LABS: Hematocrit 36.4 % (36.0-45.0); MPV 8.1 fL (7.6-11.3)
[2019-11-12 20:55] LABS: Urine Blood 3+ (NEG); Urine Glucose NEGATIVE (NEG); Urine Protein 2+ (NEG); Urine pH 5.5 (5.0-7.0)
[2019-11-12 21:00] LABS: ALT/SGPT 25 U/L (12-78); AST/SGOT 12 U/L (15-37); Albumin 4.1 g/dL (3.4-5.0); Alkaline Phosphatase 90 U/L (45-117); BUN Blood Urea Nitrogen 30 mg/dL (7-18); Bicarbonate 22 mmol/L (21-32); Bilirubin Direct 0.2 mg/dL (0-0.2); Bilirubin Total 0.5 mg/dL (0.2-1.0); Glucose Level 87 mg/dL (74-106); Magnesium 1.8 mg/dL (1.8-2.4); NT PRO-BNP 439 pg/mL (<125); Potassium 3.9 mmol/L (3.5-5.1); Protein, Total 7.9 g/dL (6.4-8.2); Sodium Level 138 mmol/L (136-145); Troponin (Emerg Dept Use Only) < 0.02 ng/mL (0.0-0.045)
--- NOTE | 2019-11-12 21:02 | RAD REPORT ---
EXAM DESCRIPTION: CT - Stone Protocol - 11/12/2019 8:40 pm CLINICAL HISTORY: Abdominal pain. COMPARISON: March 2019 TECHNIQUE: Computed axial tomography of the abdomen pelvis was obtained without oral or IV contrast. Lack of IV and oral contrast limits evaluation of solid organs, bowel, and vessels. Coronal reformat nader images were obtained and reviewed. All CT scans are performed using dose optimization technique as appropriate and may include automated exposure control or mA/KV adjustment according to patient size. FINDINGS: A renal calculus is not seen. An ureteral calculus is not noted. A bladder calculus is not present. The liver, spleen, pancreas and adrenals appear grossly normal. The kidneys are atrophic. Transplant kidney right pelvis. No significant hydronephrosis. Renal calculus is not seen. Evaluation of the distal ureter of the transplant kidney limited secondary to artifact from bilateral hip arthr oplasties. There is no stranding within the perirenal fat of the transplant kidney. Multiple gallstones with mild gallbladder distention There is no evidence of diverticulitis. The appendix appears normal Spondylosis involves lumbar spine resulting in spinal stenosis IMPRESSION: Negative for a genitourinary calculus Cholelithiasis with mild gallbladder distention
--- NOTE | 2019-11-12 21:03 | RAD REPORT ---
EXAM DESCRIPTION: Ehsan Single View11/12/2019 8:34 pm CLINICAL HISTORY: cough COMPARISON: March 2019 FINDINGS: The lungs appear clear of acute infiltrate. The heart is mildly enlarged IMPRESSION: No acute abnormalities displayed
--- NOTE | 2019-11-12 21:52 | ER ---
Nurse's Notes [facility] [place] Name: Juhi Aguilar Age: 64 yrs Sex: Female : 1955 Arrival Date: 11/12/2019 Time: 19:45 Bed 15 Private MD: Diagnosis: Dysuria;Urinary tract infection, site not specified;Cholelithiasis;Abdominal tenderness;Elevated white blood cell count;Transplanted organ and tissue status Presentation: 11/12 19:50 Presenting complaint: Child states: "She's had a kidney transplant and today she is aj1 having burning with urination and now her urine is a red color" Reports that her transplant was in 2009. Reports dysuria started at noon today. Denies fever. Transition of care: patient was not received from another setting of care. Onset of symptoms was November 12, 2019. Risk Assessment: Do you want to hurt yourself or someone else? Patient reports no desire to harm self or others. Initial Sepsis Screen: Does the patient meet any 2 criteria? HR > 90 bpm. No. Patient's initial sepsis screen is negative. Does the patient have a suspected source of infection? Yes: Dysuria/Frequency/Urgency/UTI. Care prior to arrival: None. 19:50 Method Of Arrival: Wheelchair aj1 19:50 Acuity: LUIGI 3 aj1 Triage Assessment: 19:53 General: Appears in no apparent distress. comfortable, Behavior is calm, cooperative, aj1 appropriate for age. Pain: Denies pain. Neuro: Level of Consciousness is awake, alert, obeys commands. Cardiovascular: Patient's skin is warm and dry. Respiratory: Airway is patent Respiratory effort is Respiratory pattern is regular, symmetrical. Historical: - Allergies: 19:53 sirolimus; aj1 19:53 Adhesives; aj1 19:53 Codeine; aj1 - Home Meds: 19:53 calcitriol 0.25 mcg Oral cap 1 cap once daily [Active]; calcium carbonate 650 mg aj1 calcium (1,625 mg) Oral tab daily [Active]; cyclosporine ophthalmic 1 drop 2 times per day [Active]; cyclosporine 25 mg Oral cap 2 cap twice a day [Active]; famotidine 20 mg Oral tab 1 tab 2 times per day [Active]; glipizide 5 mg Oral tab 1 tab once daily [Active]; metoprolol succinate 50 mg Oral Tb24 1.5 tabs twice a day [Active]; mycophenolate sodium 360 mg Oral TbEC 2 tabs 2 times per day [Active]; omeprazole 20 mg Oral cpDR 1 cap once daily [Active]; PNV combo [Active]; pravastatin 10 mg Oral tab nightly [Active]; prednisone 5 mg Oral tab once daily [Active]; spironolactone 25 mg Oral tab 1 tab once daily [Active]; - PMHx: 19:53 Cataracts; GERD; Hyperlipidemia; hyperparathyroidism; Hypertension; kidney transplant; aj1 Myalgia; osteoarthritis; - Immunization history:: Flu vaccine status is unknown. - Social history:: Smoking status: Patient/guardian denies using tobacco. - Ebola Screening: : Patient denies travel to an Ebola-affected area in the 21 days before illness onset. - Family history:: not pertinent. Screenin:58 Abuse screen: Denies threats or abuse. Denies injuries from another. Nutritional rv screening: No deficits noted. Tuberculosis screening: No symptoms or risk factors identified. Fall Risk None identified. Assessment: 21:55 General: Appears in no apparent distress. comfortable, Behavior is calm, cooperative. rv Pain: Denies pain. Neuro: Level of Consciousness is awake, alert, obeys commands, Oriented to person, place, time, situation. Cardiovascular: Patient's skin is warm and dry. Respiratory: Airway is patent. Derm: Skin is intact. Musculoskeletal: Range of motion: intact in all extremities, Reports weakness in generalized. Vital Signs: 19:53 BP 169 / 102; Pulse 100; Resp 18; Temp 97.9; Pulse Ox 98% on R/A; Weight 63.5 kg (R); aj1 Height 4 ft. 11 in. (149.86 cm) (R); Pain 0/10; 21:00 BP 145 / 98; Pulse 93; Resp 16; Pulse Ox 98% on R/A; rv 22:00 BP 147 / 96; Pulse 91; Resp 16; Pulse Ox 98% on R/A; rv 23:00 BP 150 / 98; Pulse 89; Resp 18; Pulse Ox 99% on R/A; rv 23:30 BP 147 / 91; Pulse 89; Resp 18; Pulse Ox 99% on R/A; rv 19:53 Body Mass Index 28.28 (63.50 kg, 149.86 cm) 1 ED Course: 19:45 Patient arrived in ED. cf2 19:52 Triage completed. aj1 19:53 Arm band placed on Patient placed in an exam room. aj1 20:02 Wali Caba MD is Attending Physician. [facility] 20:33 Junior Lorenzo, RN is Primary Nurse. rv 20:35 XRAY Chest (1 view) In Process Unspecified. EDMS 20:41 CT Stone Protocol In Process Unspecified. EDMS 21:00 No provider procedures requiring assistance completed. Inserted saline lock: 22 gauge rv in left antecubital area, using aseptic technique. Blood collected. 21:58 Patient has correct armband on for positive identification. Call light in reach. Side rv rails up X2. media monitor on. Pulse ox on. NIBP on. 22:02 Ultrasound completed. Patient tolerated well. sg3 22:03 US Abdomen Limited In Process Unspecified. EDMS 23:32 Patient transferred, IV remains in place. rv Administered Medications: 20:56 Drug: NS 0.9% 1000 ml Route: IV; Rate: 125 ml/hr; Site: left antecubital; rv 23:32 Follow up: IV Status: Completed infusion rv 20:56 Drug: Rocephin 1 grams Route: IV; Rate: per protocol; Site: left antecubital; rv 23:33 Follow up: IV Status: Completed infusion rv 23:00 Drug: Zofran 4 mg Route: IVP; Site: left antecubital; rv 23:33 Follow up: Response: Nausea is decreased rv Outcome: 21:51 ER care complete, transfer ordered by . [facility] 23:32 Transferred by ground EMS to [facility], Transfer form rv completed. X-rays sent w/ patient. 23:32 Condition: good 23:32 Instructed on the need for admit. 23:39 Patient left the ED. rv Signatures: Dispatcher [employer] EDMS Hailey Izaguirre, RN RN aj1 Wali Caba MD MD cha Godinez, Sarah sg3 Junior Lorenzo, RN RN Milli Garcia 2
--- NOTE | 2019-11-12 21:53 | EDPHYS ---
Physician Documentation [facility] Name: Juhi Aguilar Age: 64 yrs Sex: Female : 1955 Arrival Date: 11/12/2019 Time: 19:45 Bed 15 Private MD: ED Physician Wali Caba HPI: 11/12 21:46 This 64 yrs old Female presents to ER via Wheelchair with complaints of salomón Urinary Problem. 21:46 The patient presents with abdominal pain in the lower abdomen, in the right upper salomón quadrant, abdominal distention in the upper abdomen, in the lower abdomen. Onset: The symptoms/episode began/occurred 2 day(s) ago. dysuria, blood in urine, ruq pain. Onset: The symptoms/episode began/occurred 2 day(s) ago. The symptoms do not radiate. Associated signs and symptoms: none. Modifying factors: The symptoms are alleviated by nothing, the symptoms are aggravated by nothing. Severity of pain: At its worst the pain was mild moderate in the emergency department the pain is unchanged. Historical: - Allergies: 19:53 sirolimus; aj1 19:53 Adhesives; aj1 19:53 Codeine; aj1 - Home Meds: 19:53 calcitriol 0.25 mcg Oral cap 1 cap once daily [Active]; calcium carbonate 650 mg aj1 calcium (1,625 mg) Oral tab daily [Active]; cyclosporine ophthalmic 1 drop 2 times per day [Active]; cyclosporine 25 mg Oral cap 2 cap twice a day [Active]; famotidine 20 mg Oral tab 1 tab 2 times per day [Active]; glipizide 5 mg Oral tab 1 tab once daily [Active]; metoprolol succinate 50 mg Oral Tb24 1.5 tabs twice a day [Active]; mycophenolate sodium 360 mg Oral TbEC 2 tabs 2 times per day [Active]; omeprazole 20 mg Oral cpDR 1 cap once daily [Active]; PNV combo [Active]; pravastatin 10 mg Oral tab nightly [Active]; prednisone 5 mg Oral tab once daily [Active]; spironolactone 25 mg Oral tab 1 tab once daily [Active]; - PMHx: 19:53 Cataracts; GERD; Hyperlipidemia; hyperparathyroidism; Hypertension; kidney transplant; aj1 Myalgia; osteoarthritis; - Immunization history:: Flu vaccine status is unknown. - Social history:: Smoking status: Patient/guardian denies using tobacco. - Ebola Screening: : Patient denies travel to an Ebola-affected area in the 21 days before illness onset. - Family history:: not pertinent. ROS: 21:46 Constitutional: Negative for fever, chills, and weight loss, Eyes: Negative for injury, salomón pain, redness, and discharge, ENT: Negative for injury, pain, and discharge, Neck: Negative for injury, pain, and swelling, Cardiovascular: Negative for chest pain, palpitations, and edema, Respiratory: Negative for shortness of breath, cough, wheezing, and pleuritic chest pain, Back: Negative for injury and pain, : Negative for injury, bleeding, discharge, and swelling, MS/Extremity: Negative for injury and deformity, Skin: Negative for injury, rash, and discoloration, Neuro: Negative for headache, weakness, numbness, tingling, and seizure, Psych: Negative for depression, anxiety, suicide ideation, homicidal ideation, and hallucinations, Allergy/Immunology: Negative for hives, rash, and allergies, Endocrine: Negative for neck swelling, polydipsia, polyuria, polyphagia, and marked weight changes, Hematologic/Lymphatic: Negative for swollen nodes, abnormal bleeding, and unusual bruising. 21:46 Abdomen/GI: Positive for abdominal pain, of the suprapubic area and right upper quadrant. Exam: 21:46 Constitutional: This is a well developed, well nourished patient who is awake, alert, salomón and in no acute distress. Head/Face: Normocephalic, atraumatic. Eyes: Pupils equal round and reactive to light, extra-ocular motions intact. Lids and lashes normal. Conjunctiva and sclera are non-icteric and not injected. Cornea within normal limits. Periorbital areas with no swelling, redness, or edema. ENT: Nares patent. No nasal discharge, no septal abnormalities noted. Tympanic membranes are normal and external auditory canals are clear. Oropharynx with no redness, swelling, or masses, exudates, or evidence of obstruction, uvula midline. Mucous membranes moist. Neck: Trachea midline, no thyromegaly or masses palpated, and no cervical lymphadenopathy. Supple, full range of motion without nuchal rigidity, or vertebral point tenderness. No Meningismus. Chest/axilla: Normal chest wall appearance and motion. Nontender with no deformity. No lesions are appreciated. Cardiovascular: Regular rate and rhythm with a normal S1 and S2. No gallops, murmurs, or rubs. Normal PMI, no JVD. No pulse deficits. Respiratory: Lungs have equal breath sounds bilaterally, clear to auscultation and percussion. No rales, rhonchi or wheezes noted. No increased work of breathing, no retractions or nasal flaring. Back: No spinal tenderness. No costovertebral tenderness. Full range of motion. Female : Normal external genitalia. Skin: Warm, dry with normal turgor. Normal color with no rashes, no lesions, and no evidence of cellulitis. MS/ Extremity: Pulses equal, no cyanosis. Neurovascular intact. Full, normal range of motion. Neuro: Awake and alert, GCS 15, oriented to person, place, time, and situation. Cranial nerves II-XII grossly intact. Motor strength 5/5 in all extremities. Sensory grossly intact. Cerebellar exam normal. Normal gait. Psych: Awake, alert, with orientation to person, place and time. Behavior, mood, and affect are within normal limits. 21:46 Abdomen/GI: Inspection: abdomen appears normal, Bowel sounds: normal, Palpation: mild abdominal tenderness, in the suprapubic area and right upper quadrant. Vital Signs: 19:53 BP 169 / 102; Pulse 100; Resp 18; Temp 97.9; Pulse Ox 98% on R/A; Weight 63.5 kg (R); aj1 Height 4 ft. 11 in. (149.86 cm) (R); Pain 0/10; 21:00 BP 145 / 98; Pulse 93; Resp 16; Pulse Ox 98% on R/A; rv 22:00 BP 147 / 96; Pulse 91; Resp 16; Pulse Ox 98% on R/A; rv 23:00 BP 150 / 98; Pulse 89; Resp 18; Pulse Ox 99% on R/A; rv 23:30 BP 147 / 91; Pulse 89; Resp 18; Pulse Ox 99% on R/A; rv 19:53 Body Mass Index 28.28 (63.50 kg, 149.86 cm) [facility] MDM: 20:02 Patient medically screened. [facility] 21:46 Data reviewed: vital signs, nurses notes, lab test result(s), EKG, radiologic studies, [facility] CT scan, plain films. 11/12 20:04 Order name: Basic Metabolic Panel; Complete Time: 21:44 [facility] 11/12 20:04 Order name: CBC with Diff [facility] 11/12 20:04 Order name: LFT's; Complete Time: 21:44 [facility] 11/12 20:04 Order name: Magnesium; Complete Time: 21:44 [facility] 11/12 20:04 Order name: NT PRO-BNP; Complete Time: 21:44 [facility] 11/12 20:04 Order name: PT-INR; Complete Time: 21:44 [facility] 11/12 20:04 Order name: Troponin (emerg Dept Use Only); Complete Time: 21:44 [facility] 11/12 20:04 Order name: XRAY Chest (1 view); Complete Time: 21:44 [facility] 11/12 20:04 Order name: Urine Culture [facility] 11/12 20:04 Order name: CT Stone Protocol; Complete Time: 21:44 [facility] 11/12 20:37 Order name: Urine Dipstick--Ancillary (enter results); Complete Time: 21:44 cm6 11/12 21:03 Order name: Manual Differential EDMS 11/12 21:44 Order name: US Abdomen Limited [facility] 11/12 20:04 Order name: EKG; Complete Time: 20:05 [facility] 11/12 20:04 Order name: Cardiac monitoring; Complete Time: 20:57 [facility] 11/12 20:04 Order name: EKG - Nurse/Tech; Complete Time: 20:57 [facility] 11/12 20:04 Order name: IV Saline Lock; Complete Time: 20:57 [facility] 11/12 20:04 Order name: Labs collected and sent; Complete Time: 20:57 [facility] 11/12 20:04 Order name: O2 Per Protocol; Complete Time: 20:57 [facility] 11/12 20:04 Order name: O2 Sat Monitoring; Complete Time: 20:57 [facility] 11/12 20:04 Order name: Urine Dipstick-Ancillary (obtain specimen); Complete Time: 20:25 [facility] Administered Medications: 20:56 Drug: NS 0.9% 1000 ml Route: IV; Rate: 125 ml/hr; Site: left antecubital; rv 23:32 Follow up: IV Status: Completed infusion rv 20:56 Drug: Rocephin 1 grams Route: IV; Rate: per protocol; Site: left antecubital; rv 23:33 Follow up: IV Status: Completed infusion rv 23:00 Drug: Zofran 4 mg Route: IVP; Site: left antecubital; rv 23:33 Follow up: Response: Nausea is decreased rv Disposition: 11/12/19 21:51 Transfer ordered to [facility]. Diagnosis are Dysuria, Urinary tract infection, site not specified, Cholelithiasis, Abdominal tenderness, Elevated white blood cell count, Transplanted organ and tissue status. - Reason for transfer: Higher level of care. - Accepting physician is to [facility], transplant pt. - Condition is Fair. - Problem is new. - Symptoms have improved. Signatures: Dispatcher [employer] EDHailey Franks RN RN ajWali Garcia MD MD cha Vicente, Ronaldo, RN RN rv Corrections: (The following items were deleted from the chart) 21:52 21:51 11/12/2019 21:51 Transfer ordered to [facility]. Diagnosis is Dysuria; salomón Urinary tract infection, site not specified; Cholelithiasis; Abdominal tenderness; Elevated white blood cell count. Reason for transfer: Higher level of care. Accepting physician is to [facility], transplant pt. Condition is Fair. Problem is new. Symptoms have improved. [facility] 23:39 21:52 11/12/2019 21:51 Transfer ordered to [facility]. Diagnosis is Dysuria; rv Urinary tract infection, site not specified; Cholelithiasis; Abdominal tenderness; Elevated white blood cell count; Transplanted organ and tissue status. Reason for transfer: Higher level of care. Accepting physician is to [facility], transplant pt. Condition is Fair. Problem is new. Symptoms have improved. salomón
[2019-11-12 22:13] LABS: Blood Morphology Comment NOT SEEN (NOT SEEN); Platelet Estimate ADEQ
[2019-11-12] MEDS ORDERED: ONDANSETRON 4 MG/2 ML VIAL ONE (23:03)
[2019-11-13 02:15] VITALS: TEMP 97.9
[2019-11-13 02:26] VITALS: O2SAT 99
[2019-11-13 02:28] VITALS: BP 147/91
--- NOTE | 2019-11-13 09:31 | RAD REPORT ---
EXAM DESCRIPTION: US - Abdomen Exam Limited - 11/12/2019 10:03 pm CLINICAL HISTORY: ABD PAIN COMPARISON: Renal Ultrasound-Complete dated 04/13/2019 FINDINGS: The gallbladder demonstrates extensive cholelithiasis. No pericholecystic fluid or gallbla dder wall thickening. The common bile duct is normal measuring 4 mm. The liver demonstrates no findings of intrahepatic biliary dilatation. IMPRESSION: Extensive cholelithiasis.
--- NOTE | 2019-11-14 20:50 | EKG ---
Test Date: 2019-11-12 Test Time: 21:09:42 Economics Analyst: TRAVIST MEASUREMENT RESULTS: Intervals: Rate: 97 [place]: 190 QRSD: 82 QT: 338 QTc: 429 [place]: P: 32 AZ: 190 QRS: 3 T: 14 INTERPRETIVE STATEMENTS: Normal sinus rhythm Normal ECG Compared to ECG 04/12/2019 23:29:27 Sinus tachycardia no longer present Electronically Signed On 11-14-19 20:47:00 ARTIST COLOR SEPARATION by Tariq Nuñez
== END 2019-11-12 23:39 | disposition short-term general hospital (02) ==
LOC: ER 19:43
DX: N39.0 Urinary tract infection, site not specified (principal); K80.20 Calculus of gallbladder without cholecystitis without obstruction; D72.829 Elevated white blood cell count, unspecified; K21.9 Gastro-esophageal reflux disease without esophagitis; E21.3 Hyperparathyroidism, unspecified; I10 Essential (primary) hypertension; Z88.6 Allergy status to analgesic agent; Z88.8 Allergy status to other drugs, medicaments and biological substances; Z94.0 Kidney transplant status
CPT/HCPCS: 96365; 93005; 87088; 85025; 87086; 80048; 36415; 83735; 85610; 80076; 87077; 87186; 81003; 84484; 83880; 76377; 74176; 71045; 76705; 96375; 99285; 96366; J0696; J7030; J2405

== ENCOUNTER 2020-11-03 08:49 | Inpatient (IN) | payer OTHER ==
--- OUTSIDE RECORDS SUMMARY | 2020-11-03 08:51 | XMS REPORT | Continuity of Care Document ---
:1955 Author Organization [facility] t Address [address] [place] [address] Dr. Mckeon [address] [place] [id number] Care Team Providers Name Role Phone Unavailable Unavailable Unavailable Problems This patient has no known problems. Allergies, Adverse Reactions, Alerts This patient has no known allergies or adverse reactions. Medications This patient has no known medications. Procedures This patient has no known procedures. Results This patient has no known results.
--- OUTSIDE RECORDS SUMMARY | 2020-11-03 08:52 | XMS REPORT | Summary of Care ---
:1955 Author Organization [facility] Address [address] [place] [address] Care Team Providers Name Role Phone Shahida Kang MD Primary Care Provider Mingo Hernandez MD Unavailable MD Suad Unavailable Johan Marte MD Unavailable Unavailable Worker, Social Unavailable Unavailable Alix Adler MD Unavailable Reason for Visit Reason Comments Refill Request Encounter Details Date Type Department Care Team Description 08/17/2020 Refill [facility] Family Medicine Shahida Jeffries MD Refill Request - [address] [place] [address] [place] [address] [place] [address] [phone] Allergies Active Allergy Reactions Severity Noted Date Comments Adhesive Tape-Silicones Rash High 01/28/2019 Codeine Nausea and/or Vomiting High 01/28/2019 Iodine And Iodide Containing Nausea and/or Vomiting Products Sirolimus (Bulk) Rash 02/03/2019 documented as of this encounter (statuses as of 08/17/2020) Medications Medication Sig Dispensed Refills Start Date End Date Status Lancets (ONE TOUCH Use as 100 Each 5 07/28/2014 Active ULTRASOFT LANCETS) directed Misc calcium carbonate 650 Take 650 mg by 0 Active mg calcium (1,625 mg) mouth daily. tablet PNV Comb Take 1 tablet 90 tablet 3 02/11/2019 Activ e [id number] Acid by mouth every (PRENATABS FA) 29-1 morning. mg Tab denosumab (PROLIA) 60 inject 1 mL 0 12/15/2019 Active mg/mL injection under the skin. famotidine 20 mg Take 1 tablet 60 tablet 11 12/15/2019 Active tablet by mouth 2 (two) times daily. omeprazole 20 mg Take 1 capsule 90 capsule 3 01/19/2020 Active capsuleIndications: by mouth Gastroesophageal daily. reflux disease without esophagitis nystatin 100,000 Take 5 mL by 240 mL 1 01/19/2020 Active unit/mL mouth 4 (four) suspensionIndications times daily. : Thrush Continue to use for 48hrs after symptoms have resolved. cycloSPORINE 25 mg Take 1 capsule 60 capsule 11 02/01/2020 Active capsuleIndications: by mouth every Kidney replaced by 12 (twelve) transplant hours. z94.0 calcitrioL 0.25 mcg Take 1 capsule 90 capsule 3 02/10/2020 Active capsuleIndications: by mouth Kidney replaced by daily. transplant furosemide 20 mg TK 1 T PO QAM 180 tablet 3 02/10/2020 Active tablet AND QPM PNV,calcium Take 1 tablet 30 tablet 5 02/15/2020 Act dea [id number] acid by mouth (PREPLUS) 27 mg iron- daily. 1 mg tablet spironolactone 25 mg Take 1 tablet 30 tablet 5 02/15/2020 Active tabletIndications: by mouth Essential daily. hypertension, Edema, unspecified type PREDNISONE 5 mg TAKE 1/2 30 tablet 2 02/25/2020 Act dea tabletIndications: TABLET BY Renal transplant MOUTH DAILY recipient METOPROLOL SUCCINATE TAKE 1 AND 1/2 270 tablet 2 05/08/2020 Active XL 50 mg 24 hr TABLETS BY tabletIndications: MOUTH EVERY 12 Essential HOURS hypertension mycophenolate sodium Take 1 tablet 180 tablet 3 05/10/2020 Active (MYFORTIC) 360 mg EC by mouth every tabletIndications: 12 (twelve) Acute cystitis hours. Z94.0 without hematuria IRBESARTAN 150 mg TAKE 1 TABLET 30 tablet 11 06/25/2020 Active tabletIndications: BY MOUTH AT Essential BEDTIME hypertension MONTELUKAST 10 mg TAKE 1 TABLET 30 tablet 1 08/03/2020 Active tabletIndications: BY MOUTH EVERY Persistent cough EVENING pravastatin 10 mg Take 1 tablet 90 tablet 0 08/03/2020 Active tabletIndications: by mouth at Other hyperlipidemia bedtime. 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, without long-term current use of insulin Hospital, Clinic, or Other Ordered Dose Route Frequency Start Date End Date Status Facility Administered Medication darbepoetin blake (ARANESP) 60 mcg SC MONTHLY 03/14/2020 Active injection 60 mcg documented as of this encounter (statuses as of 08/17/2020) Active Problems Problem Noted Date Calculus of bile duct without cholecystitis and withou t obstruction 12/19/2019 Overview: Added automatically from request for sierra lorna [id number] Dysuria 11/13/2019 UTI (urinary tract infection) 11/13/2019 Nausea & vomiting 04/14/2019 Urinary tract infection 01/28/2019 Closed right hip fracture 09/17/2018 Closed fracture of right hip, initial encounter 2017 Overview: Added automatically from request for sierra lorna [id number] Situational mixed anxiety and depressive disorder 05/25 Fracture of femoral neck, left, closed 06/04/2018 Obesity (BMI 30-39.9) 06/04/2018 Closed fracture of neck of femur 06/03/2018 Overview: Bilateral Osteoporosis, unspecified osteoporosis type, unspecifi ed pathological 05/28/2018 fracture presence custodial (current) use of systemic steroids 8 Immunization counseling 04/14/2018 PMR (polymyalgia rheumatica) 04/14/2018 Low back pain without sciatica, unspecified back pain laterality, 04/14/2018 unspecified chronicity Renal cyst 03/22/2018 Overview: Two cysts of her transplanted kidney per US 03/11/2018 Muscle weakness 02/15/2018 Myalgia 02/15/2018 Immunosuppressive management encounter following kidne y transplant 09/24/2017 Early cataracts, bilateral 06/19/2017 Dry eye syndrome, bilateral 06/19/2017 Refractive error 06/19/2017 Positive DUDLEY (antinuclear antibody) 1:80 01/08/2017 Atypical rash 01/08/2017 Well woman exam 10/09/2016 Encounter for screening mammogram for breast cancer Need for Tdap vaccination 10/09/2016 Screening for colon cancer 10/09/2016 Essential hypertension 2013 Overview: ICD10 Diagnosis Term Program Director Substance Abuse Utility Need for prophylactic immunotherapy 2013 Encounter for long-term (current) use of other medicat ions 2013 Hyperlipidemia 11/03/2012 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, 09/20/2012 unspecified CKD stage, 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 status Overview: ICD10 Diagnosis Term Program Director Substance Abuse Utility Kidney replaced by transplant 09/19/2011 Renal transplant 05/22/2010 Cholelithiasis 03/07/2010 GERD (gastroesophageal reflux disease) 03/07/2010 History of end stage renal disease 04/16/2007 Generalized osteoarthrosis, unspecified site 7 Hyperparathyroidism 12/01/2006 documented as of this encounter (statuses as of 08/17/2020) Resolved Problems Problem Noted Date Resolved Date Local infection of wound 2010 07/08/2016 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 05/02/2010 07/08/2016 disease stage I through stage IV, or unspecified Other reasons for seeking consultation 06/16/2008 0 04/11/2010 Overview: Mammogram Renal dialysis status 06/16/2008 04/11/2010 Overview: On peritoneal dialysis Osteoporosis 06/16/2008 04/11/2010 Overview: ICD10 Diagnosis Term Program Director Substance Abuse Utility Essential hypertension 04/16/2007 04/11/2010 Overview: ICD10 Diagnosis Term Program Director Substance Abuse Utility Renal failure 12/21/2006 04/11/2010 Overview: ICD10 Diagnosis Term Program Director Substance Abuse Utility Hypoparathyroidism 12/01/2006 12/01/2006 Hypercalcemia 10/14/2006 04/11/2010 documented as of this encounter (statuses as of 08/17/2020) Immunizations Name Administration Dates Next Due H1n1 Vaccine 11/01/2009 Hep B, Adol or Pedi Dosage 03/07/2010, 08/30/2009, 9 Influenza Virus Vaccine 08/08/2013, 09/03/2012, 09/19/2011, 10/25/2010, 08/30/2009 Influenza Virus Vaccine (3+ yrs) 08/14/2014 Influenza Virus Vaccine Quad .5 mL IM 10/14/2019, 09/21/2018 6+ [place] Influenza Virus Vaccine Quad ID [id number] 09/10/2017 (Deferred: Vaccine YRS Unavailable), 08/23/2015 Influenza Virus Vaccine Quad IM 3+ 09/10/2017 YRS Influenza Virus Vaccine Quad IM 09/04/2016 Multi-dose 6+ [place] Pneumococcal Polysaccharide, PPSV23 10/04/2009 (PNEUMOVAX) TDAP 10/09/2016 documented as of this encounter Social History Tobacco Use Types Packs/Day Years Used Date Never Smoker Smokeless Tobacco: Never Used Alcohol Use Drinks/Week oz/Week Comments No 0 Standard drinks or equivalent 0.0 Sex Assigned at Date Recorded Not on file COVID-19 Exposure Response Date Recorded In the last month, have you been in contact with No / Unsure 08/14/2020 7:24 PM CDT someone who was confirmed or suspected to have Coronavirus / COVID-19? documented as of this encounter Last Filed Vital Signs Not on filedocumented in this encounter Plan of Treatment Date Type Specialty Care Team Description 08/23/2020 Office Visit Dermatology Licha Mtz MD [address] [place] [phone] 10/31/2020 Office Visit Orthopedic Surgery Nikky Le MD [facility] [place], [place] [address] 11/08/2020 Office Visit Pulmonary Disease Farhan Glez DO [address] [place] [address] 11/09/2020 Office Visit Endocrinology Diabetes & Familia Valladares MD [place] [phone] 11/20/2020 Nurse Visit Infusion Therapy Familia Nava MD [address] [place] [address] [place] [address] [phone] 1, Adc Infusion Nurse Health Maintenance Due Date Last Done Comments COLON CANCER SCREENING FIT 2006 DNA EVERY 3 YEARS COLON CANCER SCREENING 2006 SIGMOIDOSCOPY EVERY 5 YEARS FOOT EXAM 07/30/2019 07/30/2018, 07/30/2018, 07/30/2018, Additional history exists COLON CANCER SCREENING 10/07/2019 10/07/2018 ANNUAL FIT/FOBT Breast Cancer Screening 11/10/2019 11/10/2018, 10/28/2017, (MAMMOGRAM) 10/13/2016, Additional history exists INFLUENZA VACCINE (#1) 2020 10/14/2019, 09/21/2018, 09/10/2017, Additional history exists URINE MICROALBUMIN 08/17/2020 08/17/2019, 07/30/2018, 08/14/2017, Additional history exists PAP SMEAR 10/14/2020 04/26/2014, 01/22/2010, Postpone d from 02/18/2008, Additional 9 (Refused) history exists PNEUMOCOCCAL 0-64 YEARS 10/14/2020 10/04/2009 Postpone d from COMBINED SERIES (2 of 3 - 2009 (Refused) PCV13) Zoster Recombinant Vaccine 10/14/2020 Postp oned from (SHINGRIX) (1 of 2) 2006 ( Refused) HgA1C 10/27/2020 04/27/2020, 01/19/2020, 10/14/2019, Additional history exists Depression Screening 01/24/2021 01/25/2020 LDL-C 04/27/2021 04/27/2020, 01/19/2020, 06/21/2019, Additional history exists EYE EXAM 07/27/2021 07/27/2020, 07/27/2020, 07/27/2019, Additional history exists CREATININE (SERUM) 08/03/2021 08/03/2020, 05/03/2020, 04/27/2020, Additional history exists DTaP,Tdap,and Td Vaccines 10/09/2026 10/09/2016 (2 - Td) COLONOSCOPY 11/06/2027 11/06/2017 Colorectal Cancer Screening 11/06/2027 HEPATITIS C (HCV) SCREEN Completed 05/02/2010, 03/07/2010, 12/06/2009, Additional history exists documented as of this encounter Implants Implanted Type Area Paving Bed Maker Device Shelf Model / Identifier Expiration Serial / Lot Date Bipolar Head, [employer] Uhr Bipolar [id number] - [id number] BIPOLA R Right: Dorota 12/04/2022 [id number] / Implanted: Qty: 1 on 09/17/2018 by Eric Le MD at [facility] head Hip 0 / [id number] Head, [place] V40 Cocr Lfit 26mm/+4 #[id number] - S0 Head Right : [employer]a 09/29/2022 [id number] / Implanted: Qty: 1 on 09/17/2018 by Eric Le MD at [facility] Hip 0 / [id number] Screw, Synthes 6.5mm Rachel 32mm Thrd 70mm #208.436 - [id number] SCR EW Left: Synthes 208.436 / Implanted: Qty: 1 on 06/05/2018 by Vivek Trivedi MD at [facility] Hip 208.436 / 0 Screw, Synthes 6.5mm Rachel 16mm Thrd 70mm #208.409 - [id number] SCR EW Left: Synthes 208.409 / Implanted: Qty: 2 on 06/05/2018 by Vivek Trivedi MD at [facility] Hip 208.409 / 0 Screw, Synthes 7.3mm Rachel 16mm Thrd/70mm #208.870 - [id number] SCR EW Left: Synthes 208.870 / Implanted: Qty: 1 on 06/05/2018 by Vivek Trivedi MD at [facility] Hip 208.870 / 0 Stem, Dorota Size 3 Accolade Ii 127deg #[id number] - S0 Stem Ri ght: [place] 04/14/2023 [id number] / Implanted: Qty: 1 on 09/17/2018 by Eric Le MD at [facility] Hip 0 / [id number] Washer, Synthes 13.0 Mm #219.99 - S219.99 WASHER Left: Synthes 219.99 / Implanted: Qty: 3 on 06/05/2018 by Vivek Trivedi MD at [facility] Hip 219.99 / 0 documented as of this encounter Results Not on filedocumented in this encounter Visit Diagnoses Diagnosis Controlled type 2 diabetes mellitus with diabetic nephropathy, without long-term current use of insulin documented in this encounter Insurance Payer Benefit Plan / Subscriber ID Effective Phone Address [facility] Group Dates [facility] [id number] 2016-Matthew 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
--- OUTSIDE RECORDS SUMMARY | 2020-11-03 08:53 | XMS REPORT | Summary of Care ---
:1955 Author Organization [facility] Address [address] [place] [address] Care Team Providers Name Role Phone Shahida Kang MD Primary Care Provider Mingo Hernandez MD Unavailable MD Suad Unavailable Johan Marte MD Unavailable Unavailable Worker, Social Unavailable Unavailable Alix Adler MD Unavailable Reason for Visit Reason Comments Follow-up (Routine) Status Reason Specialty Diagnoses / Procedures Referred By Nichole ontact Referred To Contact Closed Nephrology Diagnoses Chronic kidney disease, stage 2 (mild) Anemia in chronic kidney disease Kidney transplant status Gwen Adler Ann Procedures SD DARBEPOETIN BLAKE, NON-ESRD MD Alix Sena MD [address] [facility] [facility] [address] [facility] [id number] [place], [place] [address] [place] [address] Phone: Fax: Encounter Details Date Type Department Care Team Description 08/15/2020 Telemedicine Visit [facility] Zac Hernandez (Primary Dx); Transplant-League Dilma Aguila MD Complication of transplanted kidney, uns pecified complication; [facility] Mult[facility]pec[facility]ty [address] [facility] FW Essenti al hypertension Ctr [facility] [address] [facility], [place] [address] [place], [place] [phone] Allergies Active Allergy Reactions Severity Noted Date Comments Adhesive Tape-Silicones Rash High 01/28/2019 Codeine Nausea and/or Vomiting High 01/28/2019 Iodine And Iodide Containing Nausea and/or Vomiting Products Sirolimus (Bulk) Rash 02/03/2019 documented as of this encounter (statuses as of 08/21/2020) Medications Medication Sig Dispensed Refills Start Date End Date Status Lancets (ONE TOUCH Use as directed 100 Each 5 07/28/2014 Active ULTRASOFT LANCETS) Misc calcium carbonate 650 mg Take 650 mg by 0 Active calcium (1,625 mg) mouth daily. tablet PNV Comb Take 1 tablet 90 tablet 3 02/11/2019 Activ e No.[id number]-Dsvvy Acid by mouth every (PRENATABS FA) 29-1 mg morning. Tab denosumab (PROLIA) 60 inject 1 mL 0 12/15/2019 Active mg/mL injection under the skin. famotidine 20 mg tablet Take 1 tablet 60 tablet 11 12/15/2019 Active by mouth 2 (two) times daily. omeprazole 20 mg Take 1 capsule 90 capsule 3 01/19/2020 Active capsuleIndications: by mouth daily. Gastroesophageal reflux disease without esophagitis nystatin 100,000 unit/mL Take 5 mL by 240 mL 1 01/19/2020 Active suspensionIndications: mouth 4 (four) Thrush times daily. Continue to use for 48hrs after symptoms have resolved. cycloSPORINE 25 mg Take 1 capsule 60 capsule 11 02/01/2020 Active capsuleIndications: by mouth every Kidney replaced by 12 (twelve) transplant hours. z94.0 calcitrioL 0.25 mcg Take 1 capsule 90 capsule 3 02/10/2020 Active capsuleIndications: by mouth daily. Kidney replaced by transplant furosemide 20 mg tablet TK 1 T PO QAM 180 tablet 3 02/10/2020 Active AND QPM PNV,calcium Take 1 tablet 30 tablet 5 02/15/2020 Act dea 24-ckej-ovyux acid by mouth daily. (PREPLUS) 27 mg iron- 1 mg tablet spironolactone 25 mg Take 1 tablet 30 tablet 5 02/15/2020 Active tabletIndications: by mouth daily. Essential hypertension, Edema, unspecified type PREDNISONE 5 mg TAKE 1/2 TABLET 30 tablet 2 02/25/2020 Active tabletIndications: Renal BY MOUTH DAILY transplant recipient METOPROLOL SUCCINATE XL TAKE 1 AND 1/2 270 tablet 2 05/08/2020 Active 50 mg 24 hr TABLETS BY tabletIndications: MOUTH EVERY 12 Essential hypertension HOURS mycophenolate sodium Take 1 tablet 180 tablet 3 05/10/2020 Active (MYFORTIC) 360 mg EC by mouth every tabletIndications: Acute 12 (twelve) cystitis without hours. Z94.0 hematuria IRBESARTAN 150 mg TAKE 1 TABLET 30 tablet 11 06/25/2020 Active tabletIndications: BY MOUTH AT Essential hypertension BEDTIME MONTELUKAST 10 mg TAKE 1 TABLET 30 tablet 1 08/03/2020 Active tabletIndications: BY MOUTH EVERY Persistent cough EVENING pravastatin 10 mg Take 1 tablet 90 tablet 0 08/03/2020 Active tabletIndications: Other by mouth at hyperlipidemia bedtime. Hospital, Clinic, or Other Ordered Dose Route Frequency Start Date End Date Status Facility Administered Medication darbepoetin blake (ARANESP) 60 mcg SC MONTHLY 03/14/2020 Active injection 60 mcg documented as of this encounter (statuses as of 08/21/2020) Active Problems Problem Noted Date Calculus of bile duct without cholecystitis and withou t obstruction 12/19/2019 Overview: Added automatically from request for sierra lorna [id number] Dysuria 11/13/2019 UTI (urinary tract infection) 11/13/2019 Nausea & vomiting 04/14/2019 Urinary tract infection 01/28/2019 Closed right hip fracture 09/17/2018 Closed fracture of right hip, initial encounter 2017 Overview: Added automatically from request for sierra lorna [id number] Situational mixed anxiety and depressive disorder 05/25 Fracture of femoral neck, left, closed 06/04/2018 Obesity (BMI 30-39.9) 06/04/2018 Closed fracture of neck of femur 06/03/2018 Overview: Bilateral Osteoporosis, unspecified osteoporosis type, unspecifi ed pathological 05/28/2018 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) use of systemic steroids 8 Immunization [...] Essential hypertension 2013 Overview: ICD10 Diagnosis Term Web Coordinator Utility Need for prophylactic immunotherapy 2013 Encounter for long-term (current) use of other medicat ions 2013 Hyperlipidemia 11/03/2012 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, 09/20/2012 unspecified CKD stage, unspecified 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 insulin u se status Overview: ICD10 Diagnosis Term Web Coordinator Utility Kidney replaced by transplant 09/19/2011 Renal transplant 05/22/2010 Cholelithiasis 03/07/2010 GERD (gastroesophageal reflux disease) 03/07/2010 History of end stage renal disease 04/16/2007 Generalized osteoarthrosis, unspecified site 7 Hyperparathyroidism 12/01/2006 documented as of this encounter (statuses as of 08/21/2020) Resolved Problems Problem Noted Date Resolved Date Local infection of wound 2010 07/08/2016 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 05/02/2010 07/08/2016 disease stage I through stage IV, or unspecified Other reasons for seeking consultation 06/16/2008 0 04/11/2010 Overview: Mammogram Renal dialysis status 06/16/2008 04/11/2010 Overview: On peritoneal dialysis Osteoporosis 06/16/2008 04/11/2010 Overview: ICD10 Diagnosis Term Web Coordinator Utility Essential hypertension 04/16/2007 04/11/2010 Overview: ICD10 Diagnosis Term Web Coordinator Utility Renal failure 12/21/2006 04/11/2010 Overview: ICD10 Diagnosis Term Web Coordinator Utility Hypoparathyroidism 12/01/2006 12/01/2006 Hypercalcemia 10/14/2006 04/11/2010 documented as of this encounter (statuses as of 08/21/2020) Immunizations Name Administration Dates Next Due H1n1 [...] Sign Reading Time Taken Comments Blood Pressure 140/90 08/15/2020 11:00 AM CDT Pulse - - Temperature - - Respiratory Rate - - Oxygen Saturation - - Inhaled Oxygen Concentration - - Weight 63.5 kg (140 lb) 08/15/2020 11:00 AM CDT Height - - Body Mass Index 28.28 05/08/2020 11:41 AM CDT documented in this encounter Progress Notes Elba Tony RN - 08/15/2020 11:15 AM CDTPost Diabetes Education Coordinator After visit instructions: ASSESSMENT/ PLAN Juhi Aguilar is a 65 year old female with PMH as above presenting with: S/p DDKTx 10 yers out, serum creatinine 1.3 stable IS; No changes HTN; Acceptable, not ideal - patient educated on low salt diet Anemia; HB>10 RTC 12 months Labs every 3 months Follow up clinic note: Standing routine txp orders in chart. AVS provided for patient VINCENT Padgett RN [facility] Kidney/Pancreas Diabetes Education Coordinator [email or web address] . Dilma Hart MD - 08/15/2020 11:15 AM CDT TELEHEALTH NOTE ( [place] [id number]) Verbal consent obtained from Patient: Juhi Aguilar due to the COVID-19 pandemic for telehealth services provided below. Communication with patient was conducted via Telephone due to patient unable to obtain video call option. Location of Patient: Home Location of Provider: Clinic Date of Service: 08/15/2020 Chief Complaint: Kidney Transplant Follow up HPI: Juhi Aguilar is a 65 year old female with history of DDKTx is seen for follow up. Patient feels fine, denies any complaints. Past Medical History: Diagnosis Date Anemia associated [...] Situational mixed anxiety and depressive disorder 06/21/2018 Php Engineer Visit on 08/03/2020 Component Date Value WBC 08/03/2020 7.09 RBC 08/03/2020 3.62* HGB 08/03/2020 10.8* HCT 08/03/2020 33.9* MCV 08/03/2020 93.6 MCH 08/03/2020 29.8 MCHC 08/03/2020 31.9 RDW-SD 08/03/2020 41.6 RDW-CV 08/03/2020 12.0 PLT 08/03/2020 226 MPV 08/03/2020 10.5 NRBC/100 WBC 08/03/2020 0.0 NRBC x10^3 08/03/2020 <0.01 GRAN MAT (NEUT) % 08/03/2020 67.4 IMM GRAN % 08/03/2020 0.70 LYMPH % 08/03/2020 21.2 MONO % 08/03/2020 8.7 EOS % 08/03/2020 1.6 BASO % 08/03/2020 0.4 GRAN MAT x10^3(ANC) 08/03/2020 4.78 IMM GRAN x10^3 08/03/2020 0.05 LYMPH x10^3 08/03/2020 1.50 MONO x10^3 08/03/2020 0.62 EOS x10^3 08/03/2020 0.11 BASO x10^3 08/03/2020 0.03 NA 08/03/2020 136 K 08/03/2020 4.4 CL 08/03/2020 103 CO2 TOTAL 08/03/2020 24 AGAP 08/03/2020 9 BUN 08/03/2020 32* GLUCOSE 08/03/2020 86 CREATININE 08/03/2020 1.30* CALCIUM 08/03/2020 10.1 eGFR Calculation (Non-Af* 08/03/2020 41.2 eGFR Calculation (Armida* 08/03/2020 50.0 MAGNESIUM 08/03/2020 1.7 PHOSPHORUS 08/03/2020 4.6 APPEARANCE 08/03/2020 Clear COLOR 08/03/2020 Yellow PH 08/03/2020 5.0 SP GRAVITY 08/03/2020 1.015 GLU U QUAL 08/03/2020 Normal BLOOD 08/03/2020 Negative KETONES 08/03/2020 Negative PROTEIN 08/03/2020 Negative UROBILIN 08/03/2020 Normal BILIRUBIN 08/03/2020 Negative NITRITE 08/03/2020 Negative LEUK EVARISTO 08/03/2020 75/uL* RBC/HPF 08/03/2020 1 WBC/HPF 08/03/2020 11* BACTERIA 08/03/2020 Negative SQ EPITH 08/03/2020 1 CREAT U 08/03/2020 120.1 T. PROT U 08/03/2020 11 CYA 2 08/03/2020 144 MEDICATIONS: Current Outpatient Medications Medication Sig Dispense Refill MONTELUKAST 10 mg tablet TAKE 1 TABLET BY MOUTH EVERY EVENING 30 tablet 1 pravastatin 10 mg tablet Take 1 tablet by mouth at bedtime. 90 tablet 0 IRBESARTAN 150 mg tablet TAKE 1 TABLET BY MOUTH AT BEDTIME 30 tablet 11 GLIPIZIDE XL 5 mg 24 hr tablet TAKE 1 TABLET BY MOUTH DAILY WITH BREAKFAST 90 tablet 0 mycophenolate sodium (MYFORTIC) 360 mg EC tablet Take 1 tablet by mouth every 12 (twelve) hours.Z94.0 180 tablet 3 METOPROLOL SUCCINATE XL 50 mg 24 hr tablet TAKE 1 AND 1/2 TABLETS BY MOUTH EVERY 12 HOURS 270 tablet 2 PREDNISONE 5 mg tablet TAKE 1/2 TABLET BY MOUTH DAILY 30 tablet 2 PNV,calcium 17-jzyp-yakws acid (PREPLUS) 27 mg iron- 1 mg tablet Take 1 tablet by mouth daily. 30 tablet 5 spironolactone 25 mg tablet Take 1 tablet by mouth daily. 30 tablet 5 calcitrioL 0.25 mcg capsule Take 1 capsule by mouth daily. 90 capsule 3 furosemide 20 mg tablet TK 1 T PO QAM AND QPM 180 tablet 3 cycloSPORINE 25 mg capsule Take 1 capsule by mouth every 12 (twelve) hours. z94.0 60 capsule 11 nystatin 100,000 unit/mL suspension Take 5 mL by mouth 4 (four) times daily. Continue to use [id number] after symptoms have resolved. 240 mL 1 omeprazole 20 mg capsule Take 1 capsule by mouth daily. 90 capsule 3 denosumab (PROLIA) 60 mg/mL injection inject 1 mL under the skin. famotidine 20 mg tablet Take 1 tablet by mouth 2 (two) times daily. 60 tablet 11 PNV Comb No.42-Fisz-Ukvqf Acid (PRENATABS FA) 29-1 mg Tab Take 1 tablet by mouth every morning. 90 tablet 3 calcium carbonate 650 mg calcium (1,625 mg) tablet Take 650 mg by mouth daily. Lancets (ONE TOUCH ULTRASOFT LANCETS) [facility] Use as directed 100 Each 5 Current Facility-Administered Medications Medication Dose Route Frequency Last Rate Last Dose darbepoetin blake (ARANESP) injection 60 mcg 60 mcg Subcutaneous MONTHLY ROS Denies chest pain, sob, fever, dysuria, nausea, vomiting, diarrhea, rash TELEHEALTH EXAM Vitals: 08/15/20 1100 BP: (!) 140/90 Weight: 140 lb (63.5 kg) Breathing ok Extremity Swelling - Abd; no pain ASSESSMENT/ PLAN Juhi Aguilar is a 65 year old female with PMH as above presenting with: S/p DDKTx 10 yers out, serum creatinine 1.3 stable IS; No changes HTN; Acceptable, not ideal - patient educated on low salt diet Anemia; HB>10 RTC 12 months Labs every 3 months After visit summary (AVS ) documentation will be available through [employer] for this encounter. A total of 40 minutes was spent on the Telephone due to patient unable to obtain video call option. Dilma Hernandez MD documented in this encounter Plan of Treatment Date Type Specialty Care Team Description 10/09/2020 Office Visit Dermatology Licha Mtz MD [address] [place] [address] 555 10/31/2020 Office Visit Orthopedic Surgery Nikky Le MD [address] [place] [address] [phone] 11/08/2020 Office Visit Pulmonary Disease Farhan Glez DO [address] [place] [address] [phone] 11/09/2020 Office Visit Endocrinology Diabetes & Familia Valladares MD Metabolism [address] [place] [address] [phone] 11/20/2020 Nurse Visit Infusion Therapy Familia Nava MD [address] [place] [address] [phone] 1, Adc Infusion Nurse Health Maintenance Due [...] of this encounter Implants Implanted Type Area Wire Coiler Machine Operator Device Shelf Model / Identifier Expiration Serial / Lot Date Bipolar Head, Dorota Uhr Bipolar [id number] - [id number] BIPOLA R Right: Dorota 12/04/2022 [id number] / Implanted: Qty: 1 on 09/17/2018 by Eric Le MD at [facility] head Hip 0 / [id number] Head, Dorota V40 Cocr Lfit 26mm/+4 #[id number] - S0 Head Right : Doroat 09/29/2022 [id number] / Implanted: Qty: 1 on 09/17/2018 by Eric Le MD at [facility] Hip 0 / [id number] Screw, Synthes 6.5mm Rachel 32mm Thrd 70mm #208.436 - [id number] SCR EW Left: Synthes 208.436 / Implanted: Qty: 1 on 06/05/2018 by Vivek Trivedi MD at [facility] Hip 208.436 / 0 Screw, Synthes 6.5mm Rachel 16mm Thrd 70mm #208.409 - [id number] SCR EW Left: Synthes 208.409 / Implanted: Qty: 2 on 06/05/2018 by Vivek Trivedi MD at [facility] Hip 208.409 / 0 Screw, Synthes 7.3mm Rachel 16mm Thrd/70mm #208.870 - [id number] SCR EW Left: Synthes 208.870 / Implanted: Qty: 1 on 06/05/2018 by Vivek Trivedi MD at [facility] Hip 208.870 / 0 Stem, Hulbert Size 3 Accolade Ii 127deg #[id number] - S0 Stem Ri ght: Hulbert 04/14/2023 [id number] / Implanted: Qty: 1 on 09/17/2018 by Eric Le MD at [facility] Hip 0 / [id number] Washer, Synthes 13.0 Mm #219.99 - S219.99 WASHER Left: Synthes 219.99 / Implanted: Qty: 3 on 06/05/2018 by Vivek Trivedi MD at [facility] Hip 219.99 / 0 documented as of this encounter Results Not on filedocumented in this encounter Visit Diagnoses Diagnosis Immunosuppression - Primary Unspecified disorder of immune mechanism Complication of transplanted kidney, uns pecified complication Essential hypertension Unspecified essential hypertension documented in this encounter Insurance Payer Benefit Plan / Subscriber ID Effective Phone Address [employer] Dates [facility] [id number] 2016-Matthew [phone] 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
--- OUTSIDE RECORDS SUMMARY | 2020-11-03 08:53 | XMS REPORT | Summary of Care ---
:1955 Author Organization [facility] Address [address] [place] [address] Care Team Providers Name Role Phone Shahida Kang MD Primary Care Provider Mingo Hernandez MD Unavailable MD Suad Unavailable Johan Marte MD Unavailable Unavailable Worker, Social Unavailable Unavailable Alix Adler MD Unavailable Reason for Visit Reason Comments Post Transplant Refill Request Encounter Details Date Type Department Care Team Description 08/24/2020 Telephone [facility] Dilma Hernandez Post Trans plant; Transplant-Sneads MD Mingo Refill Request [facility] [address] [facility] [address] [facility] [place] [phone] Allergies Active Allergy Reactions Severity Noted Date Comments Adhesive Tape-Silicones Rash High 01/28/2019 Codeine Nausea and/or Vomiting High 01/28/2019 Iodine And Iodide Containing Nausea and/or Vomiting Products Sirolimus (Bulk) Rash 02/03/2019 documented as of this encounter (statuses as of 08/24/2020) Medications Medication Sig Dispensed Refills Start Date End Date Status Lancets (ONE TOUCH Use as directed 100 Each 5 07/28/2014 Active ULTRASOFT LANCETS) Misc calcium carbonate 650 Take 650 mg by 0 Active mg calcium (1,625 mg) mouth daily. tablet PNV Comb Take 1 tablet by 90 tablet 3 02/11/2019 Ac tive No.39-Gela-Fjgqj Acid mouth every (PRENATABS FA) 29-1 mg morning. Tab denosumab (PROLIA) 60 inject 1 mL 0 12/15/2019 Active mg/mL injection under the skin. famotidine 20 mg tablet Take 1 tablet by 60 tablet 11 0 Active mouth 2 (two) times daily. omeprazole 20 mg Take 1 capsule 90 capsule 3 01/19/2020 Active capsuleIndications: by mouth daily. Gastroesophageal reflux disease without esophagitis nystatin 100,000 Take 5 mL by 240 mL 1 01/19/2020 Active unit/mL mouth 4 (four) suspensionIndications: times daily. Thrush Continue to use for 48hrs after [...] Active AND QPM PNV,calcium Take 1 tablet by 30 tablet 5 02/15/2020 Active 14-hpkk-yamwd acid mouth daily. (PREPLUS) 27 mg iron- 1 mg tablet spironolactone 25 mg Take 1 tablet by 30 tablet 5 02/15/2020 Active tabletIndications: mouth daily. Essential hypertension, Edema, unspecified type PREDNISONE 5 mg TAKE 1/2 TABLET 30 tablet 2 02/25/2020 Active tabletIndications: BY MOUTH DAILY Renal transplant recipient METOPROLOL SUCCINATE XL TAKE 1 AND 1/2 270 tablet 2 05/08/2020 Active 50 mg 24 hr TABLETS BY MOUTH tabletIndications: EVERY 12 HOURS Essential hypertension mycophenolate sodium Take 1 tablet by 180 tablet 3 05/10/2020 Active (MYFORTIC) 360 mg EC mouth every 12 tabletIndications: (twelve) hours. Acute cystitis without Z94.0 hematuria IRBESARTAN 150 mg TAKE 1 TABLET BY 30 tablet 11 06/25/2020 Active tabletIndications: MOUTH AT BEDTIME Essential hypertension MONTELUKAST 10 mg TAKE 1 TABLET BY 30 tablet 1 08/03/2020 Active tabletIndications: MOUTH EVERY Persistent cough EVENING pravastatin 10 mg Take 1 tablet by 90 tablet 0 08/03/2020 Active tabletIndications: mouth at Other hyperlipidemia bedtime. GLIPIZIDE XL 5 mg 24 hr TAKE 1 TABLET BY 90 tablet 0 0 Active tabletIndications: MOUTH DAILY WITH Controlled type 2 BREAKFAST diabetes mellitus with diabetic nephropathy, without long-term current use of insulin Hospital, Clinic, or Other Ordered Dose Route Frequency Start Date End Date Status Facility Administered Medication darbepoetin blake (ARANESP) 60 mcg SC MONTHLY 03/14/2020 Active injection 60 mcg documented as of this encounter (statuses as of 08/24/2020) Active Problems Problem Noted Date Calculus of bile duct without cholecystitis and withou t obstruction 12/19/2019 Overview: Added automatically from request for sierra rothman [id number] Dysuria 11/13/2019 UTI (urinary tract infection) 11/13/2019 Nausea & vomiting 04/14/2019 Urinary tract infection 01/28/2019 Closed right hip fracture 09/17/2018 Closed fracture of right hip, initial encounter 2017 Overview: Added automatically from request for sierra rothman [id number] Situational mixed anxiety and depressive disorder 05/25 Fracture of femoral neck, left, closed 06/04/2018 Obesity (BMI 30-39.9) 06/04/2018 Closed fracture of neck of femur 06/03/2018 Overview: Bilateral Osteoporosis, unspecified osteoporosis type, unspecifi ed pathological 05/28/2018 fracture presence long-term (current) use of systemic steroids 8 Immunization [...] Essential hypertension 2013 Overview: ICD10 Diagnosis Term Heating And Cooling Technician Utility Need for prophylactic immunotherapy 2013 Encounter for long-term (current) use of other medicat ions 2013 Hyperlipidemia 11/03/2012 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, 09/20/2012 unspecified CKD stage, unspecified longterm insulin u se status Overview: ICD10 Diagnosis Term Heating And Cooling Technician Utility Kidney replaced by transplant 09/19/2011 Renal transplant 05/22/2010 Cholelithiasis 03/07/2010 GERD (gastroesophageal reflux disease) 03/07/2010 History of end stage renal disease 04/16/2007 Generalized osteoarthrosis, unspecified site 7 Hyperparathyroidism 12/01/2006 documented as of this encounter (statuses as of 08/24/2020) Resolved Problems Problem Noted Date Resolved Date Local infection of wound 2010 07/08/2016 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 05/02/2010 07/08/2016 disease stage I through stage IV, or unspecified Other reasons for seeking consultation 06/16/2008 0 04/11/2010 Overview: Mammogram Renal dialysis status 06/16/2008 04/11/2010 Overview: On peritoneal dialysis Osteoporosis 06/16/2008 04/11/2010 Overview: ICD10 Diagnosis Term Heating And Cooling Technician Utility Essential hypertension 04/16/2007 04/11/2010 Overview: ICD10 Diagnosis Term Heating And Cooling Technician Utility Renal failure 12/21/2006 04/11/2010 Overview: ICD10 Diagnosis Term Heating And Cooling Technician Utility Hypoparathyroidism 12/01/2006 12/01/2006 Hypercalcemia 10/14/2006 04/11/2010 documented as of this encounter (statuses as of 08/24/2020) Immunizations Name Administration Dates Next Due H1n1 [...] Signs Not on filedocumented in this encounter Miscellaneous Notes Telephone Encounter - Willie Samano - 08/24/2020 3:29 PM CDT Received faxed refill request for the following: 27MG-1MG Tablets To be sent to: [id number] [place] [address] [address] [facility] [phone] (Phone) documented in this encounter Plan of Treatment Date Type Specialty Care Team Description 10/09/2020 Office Visit Dermatology Licha Mtz MD [address] [place], [place] [address] 10/31/2020 Office [place] [address] [place] [address] 11/08/2020 Office Visit Pulmonary Disease Farhan Glez DO [facility] [place] [address] [phone] 11/09/2020 Office Visit Endocrinology Diabetes & Familia Valladares MD Metabolism [address] [place] [address] johan Taylor [address] [place] [address] [phone] 11/20/2020 Nurse Visit Infusion Therapy Familia Nava MD [address] [place] [address] [phone] 1, Adc Infusion Nurse Health Maintenance Due [...] of this encounter Implants Implanted Type Area Relay Motorman Device Shelf Model / Identifier Expiration Serial / Lot Date Bipolar Head, Hinton Uhr Bipolar [id number] #[id number] - S0 BIPOLA R Right: Dorota 12/04/2022 [id number] / Implanted: Qty: 1 on 09/17/2018 by Eric Le MD at [facility] head Hip 0 / [id number] Head, Dorota V40 Cocr Lfit 26mm/+4 #[id number] - S0 Head Right : Hinton 09/29/2022 6260-9-226 / Implanted: Qty: 1 on 09/17/2018 by Eric Le MD at [facility] Hip 0 / [id number] Screw, Synthes 6.5mm Rachel 32mm Thrd 70mm #208.436 - S208.436 SCR EW Left: Synthes 208.436 / Implanted: Qty: 1 on 06/05/2018 by Vivek Trivedi MD at [facility] Hip 208.436 / 0 Screw, Synthes 6.5mm Rachel 16mm Thrd 70mm #208.409 - S208.409 SCR EW Left: Synthes 208.409 / Implanted: Qty: 2 on 06/05/2018 by Vivek Trivedi MD at [facility] Hip 208.409 / 0 Screw, Synthes 7.3mm Rachel 16mm Thrd/70mm #208.870 - S208.870 SCR EW Left: Synthes 208.870 / Implanted: Qty: 1 on 06/05/2018 by Vivek Trivedi MD at [facility] Hip 208.870 / 0 Stem, Dorota Size 3 Accolade Ii 127deg #[id number] - S0 Stem Ri ght: Hinton 04/14/2023 [id number] / Implanted: Qty: 1 on 09/17/2018 by Eric Le MD at [facility] Hip 0 / [id number] Washer, Synthes 13.0 Mm #219.99 - S219.99 WASHER Left: Synthes 219.99 / Implanted: Qty: 3 on 06/05/2018 by Vivek Trivedi MD at [facility] Hip 219.99 / 0 documented as of this encounter Results Not on filedocumented in this encounter Insurance Payer Benefit Plan / Subscriber ID Effective Phone Address T e Group Dates HIM [facility] [id number] 2016-Matthew 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
--- OUTSIDE RECORDS SUMMARY | 2020-11-03 08:54 | XMS REPORT | Summary of Care ---
:1955 Author Organization [facility] Address [address] [place] [address] Care Team Providers Name Role Phone Shahida Kang MD Primary Care Provider Mingo Hernandez MD Unavailable MD Suad Unavailable Johan Marte MD Unavailable Unavailable Worker, Social Unavailable Unavailable Alix Adler MD Unavailable Reason for Visit Reason Onset Date Comments Refill Request 08/23/2020 Encounter Details Date Type Department Care Team Description 08/23/2020 Refill [facility] Family Medicine Shahida Jeffries MD Refill Request - [address] [place] [address] [place] [address] [place] [address] [phone] Allergies Active Allergy Reactions Severity Noted Date [...] mg calcium (1,625 mg) mouth daily. tablet denosumab (PROLIA) 60 inject 1 mL 0 [...] 180 tablet 3 02/10/2020 Active AND QPM spironolactone 25 mg Take 1 tablet by [...] Added automatically from request for sierra lorna [id number] Dysuria 11/13/2019 UTI (urinary tract infection) 11/13/2019 Nausea & vomiting 04/14/2019 Urinary tract infection 01/28/2019 Closed right hip fracture 09/17/2018 Closed fracture of right hip, initial encounter 2017 Overview: Added automatically from request for sierra lorna [id number] Situational mixed anxiety and depressive disorder 05/25 Fracture of femoral neck, left, closed 06/04/2018 Obesity (BMI 30-39.9) 06/04/2018 Closed fracture of neck of femur 06/03/2018 Overview: Bilateral Osteoporosis, unspecified osteoporosis type, unspecifi ed pathological 05/28/2018 fracture presence director of primary care (current) use of systemic steroids 8 Immunization [...] Essential hypertension 2013 Overview: ICD10 Diagnosis Term Leak Detector Utility Need for prophylactic immunotherapy 2013 Encounter for long-term (current) use of other medicat ions 2013 Hyperlipidemia 11/03/2012 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, 09/20/2012 unspecified CKD stage, 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 status Overview: ICD10 Diagnosis Term Leak Detector Utility Kidney replaced by transplant 09/19/2011 Renal [...] Osteoporosis 06/16/2008 04/11/2010 Overview: ICD10 Diagnosis Term Leak Detector Utility Essential hypertension 04/16/2007 04/11/2010 Overview: ICD10 Diagnosis Term Leak Detector Utility Renal failure 12/21/2006 04/11/2010 Overview: ICD10 Diagnosis Term Leak Detector Utility Hypoparathyroidism 12/01/2006 12/01/2006 Hypercalcemia 10/14/2006 04/11/2010 [...] this encounter Miscellaneous Notes Telephone Encounter - Yee Hernandez - 08/23/2020 3:30 PM CDTPlease review documented in this encounter Plan of Treatment Date Type Specialty Care Team Description 10/09/2020 Office Visit Dermatology Licha Mtz MD [address] [place] [address] 10/31/2020 Office Visit Orthopedic Surgery Nikky Le MD [address] [place] [phone] 11/08/2020 Office Visit Pulmonary Disease Farhan Glez DO [address] [place] [address] [phone] 11/09/2020 Office Visit Endocrinology Diabetes & Familia Valladares MD Metabolism [address] [place] [address] [phone] 11/20/2020 Nurse Visit Infusion Therapy Familia Nava MD [address] [place] [address] [phone] 1, Adc Infusion Nurse 08/15/2021 Office Visit Nephrology Jj Hernandez MD [address] [place] [address] [place] [address] [phone] Health Maintenance Due Date Last Done Comments [...] of this encounter Implants Implanted Type Area Thickener Operator Device Shelf Model / Identifier Expiration Serial / Lot Date Bipolar Head, [place] Uhr Bipolar [id number] #[id number] - S0 BIPOLA R Right: Dorota 12/04/2022 UH1-42-26 / Implanted: Qty: 1 on 09/17/2018 by Eric Le MD at [facility] head Hip 0 / [id number] Head, [place] V40 Cocr Lfit 26mm/+4 #[id number] - S0 Head Right : [place] 09/29/2022 6260-9-226 / Implanted: Qty: 1 on 09/17/2018 by Eric Le MD at [facility] Hip 0 / [id number] Screw, Synthes 6.5mm Rachel 32mm Thrd 70mm #208.436 - S208.436 SCR EW Left: Synthes 208.436 / Implanted: Qty: 1 on 06/05/2018 by Vivek Trivedi MD at [facility] Hip 208.436 / 0 Screw, Synthes 6.5mm Rachel 16mm Thrd 70mm #208.409 - S208.409 SCR EW Left: Synthes 208.409 / Implanted: Qty: 2 on 06/05/2018 by Vivek Trivedi MD at [facility] Hip 208.409 / 0 Screw, Synthes 7.3mm Rachel 16mm Thrd/70mm #208.870 - S208.870 SCR EW Left: Synthes 208.870 / Implanted: Qty: 1 on 06/05/2018 by Vivek Trivedi MD at [facility] Hip 208.870 / 0 Stem, Dorota Size 3 Accolade Ii 127deg #5091-4388 - S0 Stem Ri ght: [place]lington 04/14/2023 [id number] / Implanted: Qty: 1 on 09/17/2018 by Eric Le MD at [facility] Hip 0 / [id number] Washer, Synthes 13.0 Mm #219.99 - S219.99 WASHER Left: Synthes 219.99 / Implanted: Qty: 3 on 06/05/2018 by Vivek Trivedi MD at [facility] Hip 219.99 / 0 documented as of this encounter Results Not on filedocumented in this encounter Insurance Payer Benefit Plan / Subscriber ID Effective Phone Address T e Group Dates HIM [facility] [id number] 2016-Matthew [phone] [facility] [employer] [facility] [id number] [place] [address] documented as of this encounter Advance Directives Type Date Recorded Patient Traffic Attendant Explanati on Advance Directives and Living Will Power of Heating Element Builder
--- OUTSIDE RECORDS SUMMARY | 2020-11-03 08:54 | XMS REPORT | Summary of Care ---
:1955 Author Organization [facility] Address [address] [place] [address] Care Team Providers Name Role Phone Shahida Kang MD Primary Care Provider Mingo Price MD Unavailable MD Suad Unavailable Johan Marte MD Unavailable Unavailable Worker, Social Unavailable Unavailable Alix Adler MD Unavailable Reason for Visit Reason Comments Post Transplant Refill Request Encounter Details Date Type Department Care Team Description 08/24/[address] [facility] Dilma Price Post Trans plant; Transplant-Notus MD Mingo Refill Request [facility] [address] [facility] [address] [facility] [place] [phone] Allergies Active Allergy Reactions Severity Noted Date Comments Adhesive Tape-Silicones Rash High 01/28/2019 Codeine Nausea and/or Vomiting High 01/28/2019 Iodine And Iodide Containing Nausea and/or Vomiting Products Sirolimus (Bulk) Rash 02/03/2019 documented as of this encounter (statuses as of 08/24/2020) Medications Medication Sig Dispensed Refills Start End Date Status Date Lancets (ONE TOUCH Use as 100 Each 5 A ctive ULTRASOFT LANCETS) directed 4 Misc calcium carbonate Take 650 mg 0 Active 650 mg calcium by mouth (1,625 mg) tablet daily. denosumab (PROLIA) inject 1 mL 0 Active 60 mg/mL injection under the 0 skin. famotidine 20 mg Take 1 tablet 60 tablet 11 Active tablet by mouth 2 0 (two) times daily. omeprazole 20 mg Take 1 90 capsule 3 Ac tive capsuleIndications: capsule by 0 Gastroesophageal mouth daily. reflux disease without esophagitis nystatin 100,000 Take 5 mL by 240 mL 1 Active unit/mL mouth 4 0 suspensionIndication (four) times s: Thrush daily. Continue to use for 48hrs after symptoms have resolved. cycloSPORINE 25 mg Take 1 60 capsule 11 Active capsuleIndications: capsule by 0 Kidney replaced by mouth every transplant 12 (twelve) hours. z94.0 calcitrioL 0.25 mcg Take 1 90 capsule 3 Active capsuleIndications: capsule by 0 Kidney replaced by mouth daily. transplant furosemide 20 mg TK 1 T PO QAM 180 tablet 3 Active tablet AND QPM 0 spironolactone 25 mg Take 1 tablet 30 tablet 5 Active tabletIndications: by mouth 0 Essential daily. hypertension, Edema, unspecified type PREDNISONE 5 mg TAKE 1/2 30 tablet 2 Acti ve tabletIndications: TABLET BY 0 Renal transplant MOUTH DAILY recipient METOPROLOL SUCCINATE TAKE 1 AND 270 tablet 2 Active XL 50 mg 24 hr 1/2 TABLETS 0 tabletIndications: BY MOUTH Essential EVERY 12 hypertension HOURS mycophenolate sodium Take 1 tablet 180 tablet 3 Active (MYFORTIC) 360 mg EC by mouth 0 tabletIndications: every 12 Acute cystitis (twelve) without hematuria hours. Z94.0 IRBESARTAN 150 mg TAKE 1 TABLET 30 tablet 11 Active tabletIndications: BY MOUTH AT 0 Essential BEDTIME hypertension MONTELUKAST 10 mg TAKE 1 TABLET 30 tablet 1 Active tabletIndications: BY MOUTH 0 Persistent cough EVERY EVENING pravastatin 10 mg Take 1 tablet 90 tablet 0 Active tabletIndications: by mouth at 0 Other hyperlipidemia bedtime. 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 iron- 1 mg tablet PNV Comb Take 1 tablet 90 tablet 3 08/24/20 Discon tinued No.18-Zqpo-Znaas by mouth 9 20 (Du plicate) Acid (PRENATABS FA) every 29-1 mg Tab morning. PNV,calcium Take 1 tablet 30 tablet 5 08/24/20 Disc ontinued 35-aqci-bcleb acid by mouth 0 20 ( Reorder) (PREPLUS) 27 mg daily. iron- 1 mg tablet Hospital, Clinic, or Other Ordered Dose Route Frequency Start Date End Date Status Facility Administered Medication darbepoetin blake (ARANESP) 60 mcg SC MONTHLY 03/14/2020 Active injection 60 mcg documented as of this encounter (statuses as of 08/24/2020) Active Problems Problem Noted Date Calculus of bile duct without cholecystitis and withou t obstruction 12/19/2019 Overview: Added automatically from request for sierra lorna [id number] Dysuria 11/13/2019 UTI (urinary tract infection) 11/13/2019 Nausea & vomiting 04/14/2019 Urinary tract infection 01/28/2019 Closed right hip fracture 09/17/2018 Closed fracture of right hip, initial encounter 2017 Overview: Added automatically from request for sierra lorna [id number] Situational mixed anxiety and depressive disorder 05/25 Fracture of femoral neck, left, closed 06/04/2018 Obesity (BMI 30-39.9) 06/04/2018 Closed fracture of neck of femur 06/03/2018 Overview: Bilateral Osteoporosis, unspecified osteoporosis type, unspecifi ed pathological 05/28/2018 fracture presence longterm (current) use of systemic steroids 8 Immunization [...] Essential hypertension 2013 Overview: ICD10 Diagnosis Term Beef Splitter Utility Need for prophylactic immunotherapy 2013 Encounter for long-term (current) use of other medicat ions 2013 Hyperlipidemia 11/03/2012 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, 09/20/2012 unspecified CKD stage, 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 status Overview: ICD10 Diagnosis Term Beef Splitter Utility Kidney replaced by transplant 09/19/2011 Renal [...] Osteoporosis 06/16/2008 04/11/2010 Overview: ICD10 Diagnosis Term Beef Splitter Utility Essential hypertension 04/16/2007 04/11/2010 Overview: ICD10 Diagnosis Term Beef Splitter Utility Renal failure 12/21/2006 04/11/2010 Overview: ICD10 Diagnosis Term Beef Splitter Utility Hypoparathyroidism 12/01/2006 12/01/2006 Hypercalcemia 10/14/2006 04/11/2010 [...] on filedocumented in this encounter Miscellaneous Notes Addendum Note - Elba Demarco RN - 08/24/2020 3:39 PM CDT Addended by: ELBA DEMARCO RN on: 08/24/2020 03:39 PM Modules accepted: Orders elephone Encounter - Elba Demarco RN - 08/24/2020 3:39 PM CDT Requested Prescriptions Signed Prescriptions Disp Refills PNV,calcium 18-ibbt-xwvbr acid (PREPLUS) 27 mg iron- 1 mg tablet 30 tablet 11 Sig: Take 1 tablet by mouth daily. Authorizing Provider: DILMA PRICE Ordering User: ELBA DEMARCO RN erx sent to requested pharmacy VINCENT Padgett RN [facility] Kidney/Pancreas Kinesiologist [email or web address] Encounter - Willie Samano - 08/24/2020 3:29 PM CDT Received faxed refill request for the following: 27MG-1MG Tablets To be sent to: [id number] [place], [place] - [address] AT [facility] [phone] (Phone) documented in this encounter Plan of Treatment Date Type Specialty Care Team Description 10/09/2020 Office Visit Dermatology Licha Mtz MD [address] [place], [place] [address] 10/31/2020 Office Visit Orthopedic Surgery Nikky Le MD [address] [place] [address] [phone] 11/08/2020 Office [place] [address] [place] [phone] 11/09/2020 Office Visit Endocrinology Diabetes & Familia Valladares MD Metabolism [address] [place] [address] [phone] 11/20/2020 Nurse Visit Infusion Therapy Familia Nava MD [address] [place] [address] [phone] 1, Adc Infusion Nurse Health Maintenance Due [...] of this encounter Implants Implanted Type Area Systems Development Consultant Device Shelf Model / Identifier Expiration Serial / Lot Date Bipolar Head, Dorota Uhr Bipolar [id number] #[id number] - S0 BIPOLA R Right: Dorota 12/04/2022 UH1-42-26 / Implanted: Qty: 1 on 09/17/2018 by Eric Le MD at [facility] head Hip 0 / [id number] Head, [place] V40 Cocr Lfit 26mm/+4 #6260-9-226 - S0 Head Right : [place] 09/29/2022 6260-9-226 / Implanted: Qty: 1 on 09/17/2018 by Eric Le MD at [facility] Hip 0 / [id number] Screw, Synthes 6.5mm Rachel 32mm Thrd 70mm #208.436 - S208.436 SCR EW Left: Synthes 208.436 / Implanted: Qty: 1 on 06/05/2018 by Vivek Trivedi MD at [facility] Hip 208.436 / 0 Screw, Synthes 6.5mm Rachel 16mm Thrd 70mm #208.409 - S208.409 SCR EW Left: Synthes 208.409 / Implanted: Qty: 2 on 06/05/2018 by Vivek Trivedi MD at [facility] Hip 208.409 / 0 Screw, Synthes 7.3mm Rachel 16mm Thrd/70mm #208.870 - S208.870 SCR EW Left: Synthes 208.870 / Implanted: Qty: 1 on 06/05/2018 by Vivek Trivedi MD at [facility] Hip 208.870 / 0 Stem, Dorota Size 3 Accolade Ii 127deg #[id number] - S0 Stem Ri ght: [place] 04/14/2023 [id number] / Implanted: Qty: 1 on 09/17/2018 by Eric Le MD at [facility] Hip 0 / [id number] Washer, Synthes 13.0 Mm #219.99 - S219.99 WASHER Left: Synthes 219.99 / Implanted: Qty: 3 on 06/05/2018 by Vivek Trivedi MD at [facility] Hip 219.99 / 0 documented as of this encounter Results Not on filedocumented in this encounter Insurance Payer Benefit Plan / Subscriber ID Effective Phone Address T [employer] Dates [facility] [id number] 2016-Matthew 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
--- OUTSIDE RECORDS SUMMARY | 2020-11-03 08:55 | XMS REPORT | Summary of Care ---
:1955 Author Organization [facility] Address [address] [place] [address] Care Team Providers Name Role Phone Shahida Kang MD Primary Care Provider Mingo Hernandez MD Unavailable MD Suad Unavailable Johan Marte MD Unavailable Unavailable Worker, Social Unavailable Unavailable Alix Adler MD Unavailable Reason for Visit Reason Onset Date Comments Refill Request 09/03/2020 Encounter Details Date Type Department Care Team Description 09/03/2020 Refill [facility] Transplant- Dilma Hernandez MD Refill Request [facility] [address] [place] [address] 26[address] [facility], [place] [phone] Allergies Active Allergy Reactions Severity Noted Date Comments Adhesive Tape-Silicones Rash High 01/28/2019 Codeine Nausea and/or Vomiting High 01/28/2019 Iodine And Iodide Containing Nausea and/or Vomiting Products Sirolimus (Bulk) Rash 02/03/2019 documented as of this encounter (statuses as of 09/03/2020) Medications Medication Sig Dispensed Refills Start End [...] tablet 3 Active tablet AND QPM 0 PREDNISONE 5 mg TAKE 1/2 30 tablet [...] 1 tablet 30 tablet 11 Acti ve 17-olcl-rvcao acid by mouth 0 (PREPLUS) 27 mg daily. iron- 1 mg tablet spironolactone 25 mg Take 1 tablet 30 tablet 11 Active tabletIndications: by mouth 0 Essential daily. hypertension, Edema, unspecified type spironolactone 25 mg Take 1 tablet 30 tablet 5 09/03 Discontinued tabletIndications: by mouth 0 20 ( Reorder) Essential daily. hypertension, Edema, unspecified type Hospital, Clinic, or Other Ordered Dose Route Frequency Start Date End Date Status Facility Administered Medication darbepoetin blake (ARANESP) 60 mcg SC MONTHLY 03/14/2020 Active injection 60 mcg documented as of this encounter (statuses as of 09/03/2020) Active Problems Problem Noted Date Calculus of bile duct without cholecystitis and withou t obstruction 12/19/2019 Overview: Added automatically from request for sierra rothman [id number] Dysuria 11/13/2019 UTI (urinary tract infection) 11/13/2019 Nausea & vomiting 04/14/2019 Urinary tract infection 01/28/2019 Closed right hip fracture 09/17/2018 Closed fracture of right hip, initial encounter 2017 Overview: Added automatically from request for sierra rothman [id number] Situational mixed anxiety and depressive disorder 05/25 Fracture of femoral neck, left, closed 06/04/2018 Obesity (BMI 30-39.9) 06/04/2018 Closed fracture of neck of femur 06/03/2018 Overview: Bilateral Osteoporosis, unspecified osteoporosis type, unspecifi ed pathological 05/28/2018 fracture 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) use of systemic steroids 8 Immunization [...] Essential hypertension 2013 Overview: ICD10 Diagnosis Term Warehouse Delivery Manager Utility Need for prophylactic immunotherapy 2013 Encounter for long-term (current) use of other medicat ions 2013 Hyperlipidemia 11/03/2012 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, 09/20/2012 unspecified CKD stage, unspecified mcc insulin u se status Overview: ICD10 Diagnosis Term Warehouse Delivery Manager Utility Kidney replaced by transplant 09/19/2011 Renal transplant 05/22/2010 Cholelithiasis 03/07/2010 GERD (gastroesophageal reflux disease) 03/07/2010 History of end stage renal disease 04/16/2007 Generalized osteoarthrosis, unspecified site 7 Hyperparathyroidism 12/01/2006 documented as of this encounter (statuses as of 09/03/2020) Resolved Problems Problem Noted Date Resolved Date Local infection of wound 2010 07/08/2016 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 05/02/2010 07/08/2016 disease stage I through stage IV, or unspecified Other reasons for seeking consultation 06/16/2008 0 04/11/2010 Overview: Mammogram Renal dialysis status 06/16/2008 04/11/2010 Overview: On peritoneal dialysis Osteoporosis 06/16/2008 04/11/2010 Overview: ICD10 Diagnosis Term Warehouse Delivery Manager Utility Essential hypertension 04/16/2007 04/11/2010 Overview: ICD10 Diagnosis Term Warehouse Delivery Manager Utility Renal failure 12/21/2006 04/11/2010 Overview: ICD10 Diagnosis Term Warehouse Delivery Manager Utility Hypoparathyroidism 12/01/2006 12/01/2006 Hypercalcemia 10/14/2006 04/11/2010 documented as of this encounter (statuses as of 09/03/2020) Immunizations Name Administration Dates Next Due H1n1 [...] Office Visit Dermatology Licha Mtz MD [address] [place] [address] 10/31/2020 Office Visit Orthopedic Surgery Nikky Le MD [address] [place] [address] 11/08/2020 Office Visit Pulmonary Disease Farhan Glez DO [facility] [place] [phone] 11/09/2020 Office Visit Endocrinology Diabetes & Familia Valladares MD Metabolism [address] [place] [address] [place] [phone] 11/20/2020 Nurse Visit Infusion Therapy Familia Nava MD [address] [place] [address] [place] [address] [phone] 1, Adc Infusion Nurse 08/15/2021 Office Visit Nephrology Jj Hernandez MD [address] [place] [address] [phone] Health Maintenance Due Date Last Done Comments [...] of this encounter Implants Implanted Type Area Plastic Surgery Assistant Device Shelf Model / Identifier Expiration Serial / Lot Date Bipolar Head, Dorota Uhr Bipolar [id number] #[id number] - S0 BIPOLA R Right: [place] 12/04/2022 UH1-42-26 / Implanted: Qty: 1 on 09/17/2018 by Eric Le MD at [facility] head Hip 0 / [id number] Head, Dorota V40 Cocr Lfit 26mm/+4 #[id number] - S0 Head Right : Dorota 09/29/2022 6260-9-226 / Implanted: Qty: 1 on 09/17/2018 by Eric Le MD at [facility] Hip 0 / [id number] Screw, Synthes 6.5mm Rachel 32mm Thrd 70mm #208.436 - S208.436 SCR EW Left: Synthes 208.436 / Implanted: Qty: 1 on 06/05/2018 by Vivek Trivedi MD at [facility] Hip 208.436 / 0 Screw, Synthes 6.5mm Rachel 16mm Thrd 70mm #208.409 - S208.409 SCR EW Left: Synthes 208.409 / Implanted: Qty: 2 on 06/05/2018 by Vivek Trivedi MD at [facility] Hip 208.409 / 0 Screw, Synthes 7.3mm Rachel 16mm Thrd/70mm #208.870 - S208.870 SCR EW Left: Synthes 208.870 / Implanted: Qty: 1 on 06/05/2018 by Vivek Trivedi MD at [facility] Hip 208.870 / 0 Stem, [place] Size 3 Accolade Ii 127deg #[id number] - S0 Stem Ri ght: Dorota 04/14/2023 [id number] / Implanted: Qty: 1 on 09/17/2018 by Eric Le MD at [facility] Hip 0 / [id number] Washer, Synthes 13.0 Mm #219.99 - S219.99 WASHER Left: Synthes 219.99 / Implanted: Qty: 3 on 06/05/2018 by Vivek Trivedi MD at [facility] Hip 219.99 / 0 documented as of this encounter Results Not on filedocumented in this encounter Visit Diagnoses Diagnosis Essential hypertension Unspecified essential hypertension Edema, unspecified type documented in this encounter Insurance Payer Benefit Plan / Subscriber ID Effective Phone Address [facility] Group Dates [facility] [id number] 2016-Matthew [phone] O [facility] [employer] HEALTH CHOICE 86 [phone] [place] [address] documented as of this encounter Advance Directives Type Date Recorded Patient Mobile Homes Repairer Explanati on Advance Directives and Living Will Power of Crown And Bridge Technician
--- OUTSIDE RECORDS SUMMARY | 2020-11-03 08:56 | XMS REPORT | Summary of Care ---
:1955 Author Organization [facility] Address [address] [place] [address] Care Team Providers Name Role Phone Shahida Kang MD Primary Care Provider Mingo Hernandez MD Unavailable MD Suad Unavailable Johan Marte MD Unavailable Unavailable Worker, Social Unavailable Unavailable Alix Adler MD Unavailable Reason for Visit Reason Comments Refill Request Encounter Details Date Type Department Care Team Description 09/04/2020 Refill [facility] Family Medicine Shahida Jeffries MD Refill Request - [address] [place] [address] [place] [address] [place] [address] [phone] Allergies Active Allergy Reactions Severity Noted Date Comments Adhesive Tape-Silicones Rash High 01/28/2019 Codeine Nausea and/or Vomiting High 01/28/2019 Iodine And Iodide Containing Nausea and/or Vomiting Products Sirolimus (Bulk) Rash 02/03/2019 documented as of this encounter (statuses as of 09/06/2020) Medications Medication Sig Dispensed Refills Start Date [...] 180 tablet 3 02/10/2020 Active AND QPM PREDNISONE 5 mg TAKE 1/2 TABLET 30 [...] use of insulin PNV,calcium Take 1 tablet by 30 tablet 11 08/24/2020 Active 14-olig-tohmy acid mouth daily. (PREPLUS) 27 mg iron- 1 mg tablet spironolactone 25 mg Take 1 tablet by 30 tablet 11 09/03/2020 Active tabletIndications: mouth daily. Essential hypertension, Edema, unspecified type Hospital, Clinic, or Other Ordered Dose Route Frequency Start Date End Date Status Facility Administered Medication darbepoetin blake (ARANESP) 60 mcg SC MONTHLY 03/14/2020 Active injection 60 mcg documented as of this encounter (statuses as of 09/06/2020) Active Problems Problem Noted Date Calculus of bile duct without cholecystitis and withou t obstruction 12/19/2019 Overview: Added automatically from request for sierra rothman [id number] Dysuria 11/13/2019 UTI (urinary tract infection) 11/13/2019 Nausea & vomiting 04/14/2019 Urinary tract infection 01/28/2019 Closed right hip fracture 09/17/2018 Closed fracture of right hip, initial encounter 2017 Overview: Added automatically from request for sierra rothman [id number] Situational mixed anxiety and depressive disorder 05/25 Fracture of femoral neck, left, closed 06/04/2018 Obesity (BMI 30-39.9) 06/04/2018 Closed fracture of neck of femur 06/03/2018 Overview: Bilateral Osteoporosis, unspecified osteoporosis type, unspecifi ed pathological 05/28/2018 fracture 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 8 Immunization [...] Essential hypertension 2013 Overview: ICD10 Diagnosis Term Outreach And Education Social Worker Utility Need for prophylactic immunotherapy 2013 Encounter for long-term (current) use of other medicat ions 2013 Hyperlipidemia 11/03/2012 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, 09/20/2012 unspecified CKD stage, unspecified alf insulin u se status Overview: ICD10 Diagnosis Term Outreach And Education Social Worker Utility Kidney replaced by transplant 09/19/2011 Renal transplant 05/22/2010 Cholelithiasis 03/07/2010 GERD (gastroesophageal reflux disease) 03/07/2010 History of end stage renal disease 04/16/2007 Generalized osteoarthrosis, unspecified site 7 Hyperparathyroidism 12/01/2006 documented as of this encounter (statuses as of 09/06/2020) Resolved Problems Problem Noted Date Resolved Date Local infection of wound 2010 07/08/2016 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 05/02/2010 07/08/2016 disease stage I through stage IV, or unspecified Other reasons for seeking consultation 06/16/2008 0 04/11/2010 Overview: Mammogram Renal dialysis status 06/16/2008 04/11/2010 Overview: On peritoneal dialysis Osteoporosis 06/16/2008 04/11/2010 Overview: ICD10 Diagnosis Term Outreach And Education Social Worker Utility Essential hypertension 04/16/2007 04/11/2010 Overview: ICD10 Diagnosis Term Outreach And Education Social Worker Utility Renal failure 12/21/2006 04/11/2010 Overview: ICD10 Diagnosis Term Outreach And Education Social Worker Utility Hypoparathyroidism 12/01/2006 12/01/2006 Hypercalcemia 10/14/2006 04/11/2010 documented as of this encounter (statuses as of 09/06/2020) Immunizations Name Administration Dates Next Due H1n1 [...] this encounter Miscellaneous Notes Telephone Encounter - Shahida Kang MD - 09/06/2020 12:14 AM CDTThey should always request this refill from her transplant specialist or kidney specialist. This medication has to be managed by them due to her transplant. documented in this encounter Plan of Treatment Date Type Specialty Care Team Description 10/09/2020 Office Visit Dermatology Licha Mtz MD [address] [place], [facility] 555 10/31/2020 Office Visit Orthopedic Surgery Nikky Le MD [address] [place] [address] [phone] 11/08/2020 Office Visit Pulmonary Disease Farhan Glez DO [facility] [place] [place] [address] 11/09/2020 Office Visit Endocrinology Diabetes & Familia Valladares MD Metabolism [address] [place] [address] johan [place] [phone] 15 [phone] 11/20/2020 Nurse Visit Infusion Therapy Familia Nava MD [address] [place] [address] Dr [address] [place] [address] [phone] 1, Adc Infusion Nurse 08/15/2021 Office Visit Nephrology Jj Hernandez MD [address] [place] [address] [phone] Health Maintenance Due Date Last Done Comments [...] of this encounter Implants Implanted Type Area Senior Product Designer Device Shelf Model / Identifier Expiration Serial / Lot Date Bipolar Head, Dorota Uhr Bipolar [id number] #[id number] - S0 BIPOLA R Right: Dorota 12/04/2022 UH1-42-26 / Implanted: Qty: 1 on 09/17/2018 by Eric Le MD at [facility] head Hip 0 / [id number] Head, Dorota V40 Cocr Lfit 26mm/+4 #6260-9-226 - S0 Head Right : Dorota 09/29/2022 6260-9-226 / Implanted: Qty: 1 on 09/17/2018 by Eric Le MD at [facility] Hip 0 / [id number] Screw, Synthes 6.5mm Rachel 32mm Thrd 70mm #208.436 - S208.436 SCR EW Left: Synthes 208.436 / Implanted: Qty: 1 on 06/05/2018 by Vivek Trivedi MD at [facility] Hip 208.436 / 0 Screw, Synthes 6.5mm Rachel 16mm Thrd 70mm #208.409 - S208.409 SCR EW Left: Synthes 208.409 / Implanted: Qty: 2 on 06/05/2018 by Vivek Trivedi MD at [facility] Hip 208.409 / 0 Screw, Synthes 7.3mm Rachel 16mm Thrd/70mm #208.870 - [id number] SCR EW Left: Synthes 208.870 / Implanted: Qty: 1 on 06/05/2018 by Vivek Trivedi MD at [facility] Hip 208.870 / 0 Stem, Ovid Size 3 Accolade Ii 127deg #7566-3551 - S0 Stem Ri ght: Dorota 04/14/2023 [id number] / Implanted: Qty: 1 on 09/17/2018 by Eric Le MD at [facility] Hip 0 / [id number] Washer, Synthes 13.0 Mm #219.99 - S219.99 WASHER Left: Synthes 219.99 / Implanted: Qty: 3 on 06/05/2018 by Vivek Trivedi MD at [facility] Hip 219.99 / 0 documented as of this encounter Results Not on filedocumented in this encounter Visit Diagnoses Diagnosis Renal transplant recipient documented in this encounter Insurance Payer Benefit Plan / Subscriber ID Effective Phone Address T e Group Dates [facility] [id number] 2016-Matthew [phone] 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
--- OUTSIDE RECORDS SUMMARY | 2020-11-03 08:56 | XMS REPORT | Summary of Care ---
:1955 Author Organization [facility] Address [address] [place] [address] Care Team Providers Name Role Phone Shahida Kang MD Primary Care Provider Mingo Hernandez MD Unavailable MD Suad Unavailable Johan Marte MD Unavailable Unavailable Worker, Social Unavailable Unavailable Alix Adler MD Unavailable Reason for Visit Reason Comments Refill Request Encounter Details Date Type Department Care Team Description 08/24/2020 Refill [facility] Family Medicine Shahida Jeffries MD Refill Request - [address] [place] [address] [place] [address] [place] [address] [phone] Allergies Active Allergy Reactions Severity Noted Date Comments Adhesive Tape-Silicones Rash High 01/28/2019 Codeine Nausea and/or Vomiting High 01/28/2019 Iodine And Iodide Containing Nausea and/or Vomiting Products Sirolimus (Bulk) Rash 02/03/2019 documented as of this encounter (statuses as of 09/11/2020) Medications Medication Sig Dispensed Refills Start Date [...] tablet 3 02/10/2020 Active tablet AND QPM METOPROLOL SUCCINATE TAKE 1 AND / 270 tablet 2 05/08/2020 Active XL 50 [...] nephropathy, without long-term current use of insulin PREDNISONE 5 mg TAKE 1/2 30 tablet 2 09/11/2020 Act dea tabletIndications: TABLET BY Renal transplant MOUTH DAILY recipient PNV,calcium Take 1 tablet 30 tablet 11 08/24/2020 Act dea 57-ibib-rsiuk acid by mouth (PREPLUS) 27 mg iron- daily. 1 mg tablet PREDNISONE 5 mg TAKE 1/2 30 tablet 2 02/25/2020 09/11/20 Dis continued tabletIndications: TABLET BY 20 Renal transplant MOUTH DAILY recipient Hospital, Clinic, or Other Ordered Dose Route Frequency Start Date End Date Status Facility Administered Medication darbepoetin blake (ARANESP) 60 mcg SC MONTHLY 03/14/2020 Active injection 60 mcg documented as of this encounter (statuses as of 09/11/2020) Active Problems Problem Noted Date Calculus of bile duct without cholecystitis and withou t obstruction 12/19/2019 Overview: Added automatically from request for sierra rothman [id number] Dysuria 11/13/2019 UTI (urinary tract infection) 11/13/2019 Nausea & vomiting 04/14/2019 Urinary tract infection 01/28/2019 Closed right hip fracture 09/17/2018 Closed fracture of right hip, initial encounter 2017 Overview: Added automatically from request for sierra rothman [id number] Situational mixed anxiety and depressive disorder 05/25 Fracture of femoral neck, left, closed 06/04/2018 Obesity (BMI 30-39.9) 06/04/2018 Closed fracture of neck of femur 06/03/2018 Overview: Bilateral Osteoporosis, unspecified osteoporosis type, unspecifi ed pathological 05/28/2018 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) use of systemic steroids 8 Immunization [...] Essential hypertension 2013 Overview: ICD10 Diagnosis Term Resin Painter Utility Need for prophylactic immunotherapy 2013 Encounter for long-term (current) use of other medicat ions 2013 Hyperlipidemia 11/03/2012 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, 09/20/2012 unspecified CKD stage, unspecified terminal operations manager insulin u se status Overview: ICD10 Diagnosis Term Resin Painter Utility Kidney replaced by transplant 09/19/2011 Renal transplant 05/22/2010 Cholelithiasis 03/07/2010 GERD (gastroesophageal reflux disease) 03/07/2010 History of end stage renal disease 04/16/2007 Generalized osteoarthrosis, unspecified site 7 Hyperparathyroidism 12/01/2006 documented as of this encounter (statuses as of 09/11/2020) Resolved Problems Problem Noted Date Resolved Date Local infection of wound 2010 07/08/2016 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 05/02/2010 07/08/2016 disease stage I through stage IV, or unspecified Other reasons for seeking consultation 06/16/2008 0 04/11/2010 Overview: Mammogram Renal dialysis status 06/16/2008 04/11/2010 Overview: On peritoneal dialysis Osteoporosis 06/16/2008 04/11/2010 Overview: ICD10 Diagnosis Term Resin Painter Utility Essential hypertension 04/16/2007 04/11/2010 Overview: ICD10 Diagnosis Term Resin Painter Utility Renal failure 12/21/2006 04/11/2010 Overview: ICD10 Diagnosis Term Resin Painter Utility Hypoparathyroidism 12/01/2006 12/01/2006 Hypercalcemia 10/14/2006 04/11/2010 documented as of this encounter (statuses as of 09/11/2020) Immunizations Name Administration Dates Next Due H1n1 [...] Telephone Encounter - Shahida Kang MD - 08/24/2020 4:35 PM CDTAsk them to request this script from her transplant specialist. documented in this encounter Plan of Treatment Date Type Specialty Care Team Description 10/09/2020 Office Visit Dermatology Licha Mtz MD [address] [place] [address] [place] [address] 555 10/31/2020 Office Visit Orthopedic Surgery Nikky Le MD [address] [place] [address] [phone] 11/08/2020 Office Visit Pulmonary Disease Farhan Glez DO [address] [place] [address] [phone] 11/09/2020 Office Visit Endocrinology Diabetes & Familia Valladares MD Metabolism [address] [place] [address] 775 15 [phone] 11/20/2020 Nurse Visit Infusion Therapy Familia Nava MD [address] [place] [address] [phone] 1, Adc Infusion Nurse 08/15/2021 Office Visit Nephrology Jj Hernandez MD [address] [place] [address] [phone] Health Maintenance Due Date Last Done Comments [...] of this encounter Implants Implanted Type Area Package Sealer Machine Device Shelf Model / Identifier Expiration Serial / Lot Date Bipolar Head, Bloomingdale Uhr Bipolar [id number] #[id number] - S0 BIPOLA R Right: Dorota 12/04/2022 UH1-42-26 / Implanted: Qty: 1 on 09/17/2018 by Eric Le MD at [facility] head Hip 0 / [id number] Head, [place] V40 Cocr Lfit 26mm/+4 #6260-9-226 - S0 Head Right : Dorota 09/29/2022 6260-9-226 / Implanted: Qty: 1 on 09/17/2018 by Eric Le MD at [facility] Hip 0 / [id number] Screw, Synthes 6.5mm Rachel 32mm Thrd 70mm #208.436 - S208.436 SCR EW Left: Synthes 208.436 / Implanted: Qty: 1 on 06/05/2018 by Vivek Trivedi MD at [facility] Hip 208.436 / 0 Screw, Synthes 6.5mm Rachel 16mm Thrd 70mm #208.409 - S208.409 SCR EW Left: Synthes 208.409 / Implanted: Qty: 2 on 06/05/2018 by Vivek Trivedi MD at [facility] Hip 208.409 / 0 Screw, Synthes 7.3mm Rachel 16mm Thrd/70mm #208.870 - S208.870 SCR EW Left: Synthes 208.870 / Implanted: Qty: 1 on 06/05/2018 by Vivek Trivedi MD at [facility] Hip 208.870 / 0 Stem, [place] Size 3 Accolade Ii 127deg #8793-4745 - S0 Stem Ri ght: Dorota 04/14/2023 [id number] / Implanted: Qty: 1 on 09/17/2018 by Eric Le MD at [facility] Hip 0 / [id number] Washkimberly, Synthes 13.0 Mm #219.99 - S219.99 WASHER Left: Synthes 219.99 / Implanted: Qty: 3 on 06/05/2018 by Vivek Trivedi MD at [facility] Hip 219.99 / 0 documented as of this encounter Results Not on filedocumented in this encounter Visit Diagnoses Diagnosis Renal transplant recipient documented in this encounter Insurance Payer Benefit Plan / Subscriber ID Effective Phone Address [facility] Group Dates [facility] [id number] 2016-Matthew [phone] [facility] [employer] [facility] nt 86 [id number] [place] [address] documented as of this encounter Advance Directives Type Date Recorded Patient Metal Control Coordinator Explanati on Advance Directives and Living Will Power of Foreign Exchange Position Clerk
--- OUTSIDE RECORDS SUMMARY | 2020-11-03 08:57 | XMS REPORT | Summary of Care ---
:1955 Author Organization [facility] Address [address] [place] [address] Care Team Providers Name Role Phone Shahida Kang MD Primary Care Provider Mingo Hernandez MD Unavailable MD Suad Unavailable Johan Marte MD Unavailable Unavailable Worker, Social Unavailable Unavailable Alix Adler MD Unavailable Reason for Visit Reason Comments Refill Request Encounter Details Date Type Department Care Team Description 10/01/2020 Refill [facility] Family Medicine Shahida Jeffries MD Refill Request - [address] [place] [address] [place] [address] [place] [address] [phone] Allergies Active Allergy Reactions Severity Noted Date Comments Adhesive Tape-Silicones Rash High 01/28/2019 Codeine Nausea and/or Vomiting High 01/28/2019 Iodine And Iodide Containing Nausea and/or Vomiting Products Sirolimus (Bulk) Rash 02/03/2019 documented as of this encounter (statuses as of 10/01/2020) Medications Medication Sig Dispensed Refills Start Date [...] AND QPM METOPROLOL SUCCINATE TAKE 1 AND /2 270 tablet 2 05/08/2020 Active XL 50 mg 24 hr TABLETS BY tabletIndications: MOUTH EVERY 12 Essential HOURS hypertension mycophenolate sodium Take 1 tablet 180 tablet 3 05/10/2020 Active (MYFORTIC) 360 mg EC by mouth every tabletIndications: 12 (twelve) Acute cystitis hours. Z94.0 without hematuria IRBESARTAN 150 mg TAKE 1 TABLET 30 tablet 11 06/25/2020 Active tabletIndications: BY MOUTH AT Essential BEDTIME hypertension pravastatin 10 mg Take 1 tablet 90 [...] tablet 30 tablet 11 08/24/2020 Act dea 39-dajt-qhuvq acid by mouth (PREPLUS) 27 mg iron- daily. 1 mg tablet spironolactone 25 mg Take 1 tablet 30 tablet 11 09/03/2020 Active tabletIndications: by mouth Essential daily. hypertension, Edema, unspecified type MONTELUKAST 10 mg TAKE 1 TABLET 30 tablet 0 10/01/2020 Active tabletIndications: BY MOUTH EVERY Persistent cough EVENING MONTELUKAST 10 mg TAKE 1 TABLET 30 tablet 1 08/03/2020 0 Discontinued tabletIndications: BY MOUTH EVERY 20 Persistent cough EVENING Hospital, Clinic, or Other Ordered Dose Route Frequency Start Date End Date Status Facility Administered Medication darbepoetin blake (ARANESP) 60 mcg SC MONTHLY 03/14/2020 Active injection 60 mcg documented as of this encounter (statuses as of 10/01/2020) Active Problems Problem Noted Date Calculus of bile duct without cholecystitis and withou t obstruction 12/19/2019 Overview: Added automatically from request for sierra rothman [id number] Dysuria 11/13/2019 UTI (urinary tract infection) 11/13/2019 Nausea & vomiting 04/14/2019 Urinary tract infection 01/28/2019 Closed right hip fracture 09/17/2018 Closed fracture of right hip, initial encounter 2017 Overview: Added automatically from request for sierra lorna [id number] Situational mixed anxiety and depressive disorder 05/25 Fracture of femoral neck, left, closed 06/04/2018 Obesity (BMI 30-39.9) 06/04/2018 Closed fracture of neck of femur 06/03/2018 Overview: Bilateral Osteoporosis, unspecified osteoporosis type, unspecifi ed pathological 05/28/2018 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 8 Immunization [...] Essential hypertension 2013 Overview: ICD10 Diagnosis Term Fabric Worker Fitter Utility Need for prophylactic immunotherapy 2013 Encounter for long-term (current) use of other medicat ions 2013 Hyperlipidemia 11/03/2012 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, 09/20/2012 unspecified CKD stage, unspecified group home insulin u se status Overview: ICD10 Diagnosis Term Fabric Worker Fitter Utility Kidney replaced by transplant 09/19/2011 Renal transplant 05/22/2010 Cholelithiasis 03/07/2010 GERD (gastroesophageal reflux disease) 03/07/2010 History of end stage renal disease 04/16/2007 Generalized osteoarthrosis, unspecified site 7 Hyperparathyroidism 12/01/2006 documented as of this encounter (statuses as of 10/01/2020) Resolved Problems Problem Noted Date Resolved Date Local infection of wound 2010 07/08/2016 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 05/02/2010 07/08/2016 disease stage I through stage IV, or unspecified Other reasons for seeking consultation 06/16/2008 0 04/11/2010 Overview: Mammogram Renal dialysis status 06/16/2008 04/11/2010 Overview: On peritoneal dialysis Osteoporosis 06/16/2008 04/11/2010 Overview: ICD10 Diagnosis Term Fabric Worker Fitter Utility Essential hypertension 04/16/2007 04/11/2010 Overview: ICD10 Diagnosis Term Fabric Worker Fitter Utility Renal failure 12/21/2006 04/11/2010 Overview: ICD10 Diagnosis Term Fabric Worker Fitter Utility Hypoparathyroidism 12/01/2006 12/01/2006 Hypercalcemia 10/14/2006 04/11/2010 documented as of this encounter (statuses as of 10/01/2020) Immunizations Name Administration Dates Next Due H1n1 [...] Assigned at Date Recorded Not on file documented as of this encounter Last Filed Vital Signs Not on filedocumented in this encounter Plan of Treatment Date Type Specialty Care Team Description 10/09/2020 Office Visit Dermatology Licha Mtz MD [address] [place] [address] 555 10/31/2020 Office [place] [address] [place] [address] [phone] 11/08/2020 Office Visit [place] [address] [place] [phone] 11/09/2020 Office Visit Endocrinology Diabetes & Familia Valladares MD Metabolism [address] [place] [address] 775 15 [phone] 11/20/2020 Nurse Visit Infusion Therapy Familia Nava MD [address] [place] [address] [phone] 1, Adc Infusion Nurse 08/15/2021 Office Visit Nephrology Jj Hernandez MD [address] [place] [address] [phone] Health Maintenance Due Date Last Done Comments [...] of this encounter Implants Implanted Type Area Carriage Rider Device Shelf Model / Identifier Expiration Serial / Lot Date Bipolar Head, Ralph Uhr Bipolar [id number] #[id number] - S0 BIPOLA R Right: Ralph 12/04/2022 UH1-42-26 / Implanted: Qty: 1 on 09/17/2018 by Eric Le MD at [facility] head Hip 0 / [id number] Head, Ralph V40 Cocr Lfit 26mm/+4 #[id number] - S0 Head Right : Ralph 09/29/2022 6260-9-226 / Implanted: Qty: 1 on 09/17/2018 by Eric Le MD at [facility] Hip 0 / [id number] Screw, Synthes 6.5mm Rachel 32mm Thrd 70mm #208.436 - S208.436 SCR EW Left: Synthes 208.436 / Implanted: Qty: 1 on 06/05/2018 by Vivek Trivedi MD at [facility] Hip 208.436 / 0 Screw, Synthes 6.5mm Rachel 16mm Thrd 70mm #208.409 - S208.409 SCR EW Left: Synthes 208.409 / Implanted: Qty: 2 on 06/05/2018 by Vivek Trivedi MD at [facility] Hip 208.409 / 0 Screw, Synthes 7.3mm Rachel 16mm Thrd/70mm #208.870 - S208.870 SCR EW Left: Synthes 208.870 / Implanted: Qty: 1 on 06/05/2018 by Vivek Trivedi MD at [facility] Hip 208.870 / 0 Stem, Ralph Size 3 Accolade Ii 127deg #9552-1834 - S0 Stem Ri ght: Ralph 04/14/2023 [id number] / Implanted: Qty: 1 on 09/17/2018 by Eric Le MD at [facility] Hip 0 / [id number] Washer, Synthes 13.0 Mm #219.99 - S219.99 WASHER Left: Synthes 219.99 / Implanted: Qty: 3 on 06/05/2018 by Vivek Trivedi MD at [facility] Hip 219.99 / 0 documented as of this encounter Results Not on filedocumented in this encounter Visit Diagnoses Diagnosis Persistent cough Cough documented in this encounter Insurance Payer Benefit Plan / Subscriber ID Effective Phone Address T e Group Dates [facility] [id number] 2016-Matthew [phone] [facility] [employer] 86 [id number] [place] [address] documented as of this encounter Advance Directives Type Date Recorded Patient Stock Unloader Explanati on Advance Directives and Living Will Power of Quality Control Supervisor
--- OUTSIDE RECORDS SUMMARY | 2020-11-03 08:58 | XMS REPORT | Summary of Care ---
:1955 Author Organization [facility] Address [address] [place] [address] Care Team Providers Name Role Phone Shahida Kang MD Primary Care Provider Mingo Hernandez MD Unavailable MD Suad Unavailable Johan Marte MD Unavailable Unavailable Worker, Social Unavailable Unavailable Alix Adler MD Unavailable Reason for Visit Reason Onset Date Comments Refill Request 10/03/2020 Encounter Details Date Type Department Care Team Description 10/03/2020 Refill [facility] Dilma Riddle MD Refill Request [facility] [address] [facility] [address] [place] [address] Entrance B [phone] [place], [place] [phone] Allergies Active Allergy Reactions Severity Noted Date Comments Adhesive Tape-Silicones Rash High 01/28/2019 Codeine Nausea and/or Vomiting High 01/28/2019 Iodine And Iodide Containing Nausea and/or Vomiting Products Sirolimus (Bulk) Rash 02/03/2019 documented as of this encounter (statuses as of 10/04/2020) Medications Medication Sig Dispensed Refills Start End Date Status Date Lancets (ONE TOUCH Use as 100 Each 5 A ctive ULTRASOFT LANCETS) directed 4 Misc calcium carbonate Take 650 mg 0 Active 650 mg calcium by mouth (1,625 mg) tablet daily. denosumab (PROLIA) inject 1 mL 0 Active 60 mg/mL injection under the 0 skin. omeprazole 20 mg Take 1 90 capsule [...] tablet 3 Active tablet AND QPM 0 METOPROLOL SUCCINATE TAKE 1 AND 270 tablet [...] BY MOUTH AT 0 Essential BEDTIME hypertension pravastatin 10 mg Take [...] BY 0 Renal transplant MOUTH DAILY recipient PNV,calcium Take 1 tablet 30 tablet 11 Acti ve 76-hgid-ceoaj acid by mouth 0 (PREPLUS) 27 mg daily. iron- 1 mg tablet spironolactone 25 mg Take 1 tablet 30 tablet 11 Active tabletIndications: by mouth 0 Essential daily. hypertension, Edema, unspecified type MONTELUKAST 10 mg TAKE 1 TABLET 90 tablet 1 Active tabletIndications: BY MOUTH 0 Persistent cough EVERY EVENING famotidine 20 mg Take 1 tablet 60 tablet 11 Active tablet by mouth 2 0 (two) times daily. famotidine 20 mg Take 1 tablet 60 tablet 11 10/03/20 Discontinued tablet by mouth 2 0 20 (Reorder) (two) times daily. Hospital, Clinic, or Other Ordered Dose Route Frequency Start Date End Date Status Facility Administered Medication darbepoetin blake (ARANESP) 60 mcg SC MONTHLY 03/14/2020 Active injection 60 mcg documented as of this encounter (statuses as of 10/04/2020) Active Problems Problem Noted Date Calculus of bile duct without cholecystitis and withou t obstruction 12/19/2019 Overview: Added automatically from request for sierra lorna [id number] Dysuria 11/13/2019 UTI (urinary tract infection) 11/13/2019 Nausea & vomiting 04/14/2019 Urinary tract infection 01/28/2019 Closed right hip fracture 09/17/2018 Closed fracture of right hip, initial encounter 2017 Overview: Added automatically from request for sierra lorna [id number] Situational mixed anxiety and depressive disorder 05/25 Fracture of femoral neck, left, closed 06/04/2018 Obesity (BMI 30-39.9) 06/04/2018 Closed fracture of neck of femur 06/03/2018 Overview: Bilateral Osteoporosis, unspecified osteoporosis type, unspecifi ed pathological 05/28/2018 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 8 Immunization [...] Essential hypertension 2013 Overview: ICD10 Diagnosis Term Experimental Assembler Utility Need for prophylactic immunotherapy 2013 Encounter for long-term (current) use of other medicat ions 2013 Hyperlipidemia 11/03/2012 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, 09/20/2012 unspecified CKD stage, unspecified long term care pharmacist insulin u se status Overview: ICD10 Diagnosis Term Experimental Assembler Utility Kidney replaced by transplant 09/19/2011 Renal transplant 05/22/2010 Cholelithiasis 03/07/2010 GERD (gastroesophageal reflux disease) 03/07/2010 History of end stage renal disease 04/16/2007 Generalized osteoarthrosis, unspecified site 7 Hyperparathyroidism 12/01/2006 documented as of this encounter (statuses as of 10/04/2020) Resolved Problems Problem Noted Date Resolved Date Local infection of wound 2010 07/08/2016 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 05/02/2010 07/08/2016 disease stage I through stage IV, or unspecified Other reasons for seeking consultation 06/16/2008 0 04/11/2010 Overview: Mammogram Renal dialysis status 06/16/2008 04/11/2010 Overview: On peritoneal dialysis Osteoporosis 06/16/2008 04/11/2010 Overview: ICD10 Diagnosis Term Experimental Assembler Utility Essential hypertension 04/16/2007 04/11/2010 Overview: ICD10 Diagnosis Term Experimental Assembler Utility Renal failure 12/21/2006 04/11/2010 Overview: ICD10 Diagnosis Term Experimental Assembler Utility Hypoparathyroidism 12/01/2006 12/01/2006 Hypercalcemia 10/14/2006 04/11/2010 documented as of this encounter (statuses as of 10/04/2020) Immunizations Name Administration Dates Next Due H1n1 [...] Office Visit Dermatology Licha Mtz MD [address] [place] [address] 555 10/31/2020 Office Visit Orthopedic Surgery Nikky Le MD [address] [place] [address] [phone] 11/08/2020 Office Visit Pulmonary Disease Farhan Glez DO [address] [place] [address] [phone] 11/09/2020 Office Visit Endocrinology Diabetes & Familia Valladares MD Metabolism [address] [place] [address] 775 15 [phone] 11/20/2020 Nurse Visit Infusion Therapy Familia Nava MD [address] [place] [address] [phone] 1, Adc Infusion Nurse 08/15/2021 Office Visit Nephrology Jj Hernandez MD [address] [place] [address] [phone] Health Maintenance Due Date Last Done Comments [...] of this encounter Implants Implanted Type Area Machine Maintenance Mechanic Device Shelf Model / Identifier Expiration Serial / Lot Date Bipolar Head, Dorota Uhr Bipolar [id number] #[id number] - S0 BIPOLA R Right: [place] 12/04/2022 UH1-42-26 / Implanted: Qty: 1 on 09/17/2018 by Eric Le MD at [facility] head Hip 0 / [id number] Head, Dorota V40 Cocr Lfit 26mm/+4 #[id number] - S0 Head Right : Dorota 09/29/2022 6260-9-226 / Implanted: Qty: 1 on 09/17/2018 by Eric Le MD at [facility] Hip 0 / [id number] Screw, Synthes 6.5mm Rachel 32mm Thrd 70mm #208.436 - S208.436 SCR EW Left: Synthes 208.436 / Implanted: Qty: 1 on 06/05/2018 by Vivek Trivedi MD at [facility] Hip 208.436 / 0 Screw, Synthes 6.5mm Rachel 16mm Thrd 70mm #208.409 - S208.409 SCR EW Left: Synthes 208.409 / Implanted: Qty: 2 on 06/05/2018 by Vivek Trivedi MD at [facility] Hip 208.409 / 0 Screw, Synthes 7.3mm Rachel 16mm Thrd/70mm #208.870 - S208.870 SCR EW Left: Synthes 208.870 / Implanted: Qty: 1 on 06/05/2018 by Vivek Trivedi MD at [facility] Hip 208.870 / 0 Stem, Dorota Size 3 Accolade Ii 127deg #[id number] - S0 Stem Ri ght: [place] 04/14/2023 7520-9052 / Implanted: Qty: 1 on 09/17/2018 by Eric Le MD at [facility] Hip 0 / [id number] Washer, Synthes 13.0 Mm #219.99 - S219.99 WASHER Left: Synthes 219.99 / Implanted: Qty: 3 on 06/05/2018 by Vivek Trivedi MD at [facility] Hip 219.99 / 0 documented as of this encounter Results Not on filedocumented in this encounter Insurance Payer Benefit Plan / Subscriber ID Effective Phone Address T e Group Dates HIM [facility] [id number] 2016-Matthew 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
--- OUTSIDE RECORDS SUMMARY | 2020-11-03 08:58 | XMS REPORT | Summary of Care ---
:1955 Author Organization [facility] Address [address] [place] [address] Care Team Providers Name Role Phone Shahida Kang MD Primary Care Provider Mingo Hernandez MD Unavailable MD Suad Unavailable Johan Marte MD Unavailable Unavailable Worker, Social Unavailable Unavailable Alix Adler MD Unavailable Reason for Visit Reason Comments Error Encounter Details Date Type Department Care Team Description 10/24/2020 Transition of Care [facility]iva Fu [address] [address] Allergies Active Allergy Reactions Severity Noted Date Comments Adhesive Tape-Silicones Rash High 01/28/2019 Codeine Nausea and/or Vomiting High 01/28/2019 Iodine And Iodide Containing Nausea and/or Vomiting Products Sirolimus (Bulk) Rash 02/03/2019 documented as of this encounter (statuses as of 10/24/2020) Medications Medication Sig Dispensed Refills Start Date End Date Status Lancets (ONE TOUCH Use as directed 100 Each 5 07/28/2014 Active ULTRASOFT LANCETS) Misc calcium carbonate 650 Take 650 mg by 0 Active mg calcium (1,625 mg) mouth daily. tablet denosumab (PROLIA) 60 inject 1 mL 0 12/15/2019 Active mg/mL injection under the skin. omeprazole 20 mg Take 1 capsule 90 [...] 180 tablet 3 02/10/2020 Active AND QPM METOPROLOL SUCCINATE XL TAKE 1 AND /2 270 tablet 2 05/08/2020 Active 50 mg 24 hr TABLETS BY MOUTH tabletIndications: EVERY 12 HOURS Essential hypertension mycophenolate sodium Take 1 tablet by 180 tablet 3 05/10/2020 Active (MYFORTIC) 360 mg EC mouth every 12 tabletIndications: (twelve) hours. Acute cystitis without Z94.0 hematuria IRBESARTAN 150 mg TAKE 1 TABLET BY 30 tablet 11 06/25/2020 Active tabletIndications: MOUTH AT BEDTIME Essential hypertension pravastatin 10 mg Take 1 tablet by 90 tablet 0 08/03/2020 Active tabletIndications: mouth at Other hyperlipidemia bedtime. 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 (PREPLUS) 27 mg iron- 1 mg tablet spironolactone 25 mg Take 1 tablet by 30 tablet 11 09/03/2020 Active tabletIndications: mouth daily. Essential hypertension, Edema, unspecified type MONTELUKAST 10 mg TAKE 1 TABLET BY 90 tablet 1 10/01/2020 Active tabletIndications: MOUTH EVERY Persistent cough EVENING famotidine 20 mg tablet Take 1 tablet by 60 tablet 11 0 Active mouth 2 (two) times daily. Hospital, Clinic, or Other Ordered Dose Route Frequency Start Date End Date Status Facility Administered Medication darbepoetin blake (ARANESP) 60 mcg SC MONTHLY 03/14/2020 Active injection 60 mcg documented as of this encounter (statuses as of 10/24/2020) Active Problems Problem Noted Date Calculus of bile duct without cholecystitis and withou t obstruction 12/19/2019 Overview: Added automatically from request for sierra lorna [id number] Dysuria 11/13/2019 UTI (urinary tract infection) 11/13/2019 Nausea & vomiting 04/14/2019 Urinary tract infection 01/28/2019 Closed right hip fracture 09/17/2018 Closed fracture of right hip, initial encounter 2017 Overview: Added automatically from request for sierra lorna [id number] Situational mixed anxiety and depressive disorder 05/25 Fracture of femoral neck, left, closed 06/04/2018 Obesity (BMI 30-39.9) 06/04/2018 Closed fracture of neck of femur 06/03/2018 Overview: Bilateral Osteoporosis, unspecified osteoporosis type, unspecifi ed pathological 05/28/2018 fracture presence 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 8 Immunization [...] Essential hypertension 2013 Overview: ICD10 Diagnosis Term Church Warden Utility Need for prophylactic immunotherapy 2013 Encounter for long-term (current) use of other medicat ions 2013 Hyperlipidemia 11/03/2012 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, 09/20/2012 unspecified CKD stage, unspecified chcf insulin u se status Overview: ICD10 Diagnosis Term Church Warden Utility Kidney replaced by transplant 09/19/2011 Renal transplant 05/22/2010 Cholelithiasis 03/07/2010 GERD (gastroesophageal reflux disease) 03/07/2010 History of end stage renal disease 04/16/2007 Generalized osteoarthrosis, unspecified site 7 Hyperparathyroidism 12/01/2006 documented as of this encounter (statuses as of 10/24/2020) Resolved Problems Problem Noted Date Resolved Date Local infection of wound 2010 07/08/2016 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 05/02/2010 07/08/2016 disease stage I through stage IV, or unspecified Other reasons for seeking consultation 06/16/2008 0 04/11/2010 Overview: Mammogram Renal dialysis status 06/16/2008 04/11/2010 Overview: On peritoneal dialysis Osteoporosis 06/16/2008 04/11/2010 Overview: ICD10 Diagnosis Term Church Warden Utility Essential hypertension 04/16/2007 04/11/2010 Overview: ICD10 Diagnosis Term Church Warden Utility Renal failure 12/21/2006 04/11/2010 Overview: ICD10 Diagnosis Term Church Warden Utility Hypoparathyroidism 12/01/2006 12/01/2006 Hypercalcemia 10/14/2006 04/11/2010 documented as of this encounter (statuses as of 10/24/2020) Immunizations Name Administration Dates Next Due H1n1 [...] Treatment Date Type Specialty Care Team Description 10/31/2020 Office Visit Orthopedic Surgery Nikky Le MD [address] [place] [address] [phone] 11/08/2020 Office Visit Pulmonary Disease Farhan Glez DO [address] [place] [address] [phone] 11/09/2020 Office Visit Endocrinology Diabetes & Familia Valladares MD [address] 775 15 [phone] 11/13/2020 Office Visit Family Medicine Marlyn Kang MD [address] [place] [phone] 11/20/2020 Nurse Visit Infusion Therapy Familia Nava MD [address] [place] [address] [phone] 1, Adc Infusion Nurse 07/29/2021 Office Visit Ophthalmology David Lopez, OD [address] [place], [place] [address] [phone] 08/15/2021 Office Visit Nephrology Jj Hernandez MD [address] [place] [address] [phone] Health Maintenance Due Date Last Done Comments COLON CANCER SCREENING FIT DNA 2006 EVERY 3 YEARS COLON CANCER SCREENING 2006 SIGMOIDOSCOPY EVERY 5 YEARS Zoster Recombinant Vaccine 2006 (SHINGRIX) (1 of 2) PNEUMOCOCCAL 0-64 YEARS COMBINED 10/04/2010 10/04/2009 SERIES (2 of 3 - PCV13) PAP SMEAR 04/26/2019 04/26/2014, 01/22/2010, 02/18/2008, Additional history exists FOOT EXAM 07/30/2019 07/30/2018, 07/30/2018, 07/30/2018, Additional history exists COLON CANCER SCREENING ANNUAL 10/07/2019 10/07/2018 FIT/FOBT Breast Cancer Screening 11/10/2019 11/10/2018, 10/28/2017, (MAMMOGRAM) 10/13/2016, Additional history exists INFLUENZA VACCINE (#1) 2020 10/14/2019, 09/21/2018, 09/10/2017, Additional history exists URINE MICROALBUMIN 08/17/2020 08/17/2019, 07/30/2018, 08/14/2017, Additional history exists HgA1C 10/27/2020 04/27/2020, 01/19/2020, 10/14/2019, Additional history exists Depression Screening 01/24/2021 01/25/2020 LDL-C 04/27/2021 04/27/2020, 01/19/2020, 06/21/2019, Additional history exists EYE EXAM 07/27/2021 07/27/2020, 07/27/2020, 07/27/2019, Additional history exists CREATININE (SERUM) 08/03/2021 08/03/2020, 05/03/2020, 04/27/2020, Additional history exists DTaP,Tdap,and Td Vaccines (2 - Td) 10/09/2026 10/09/2016 COLONOSCOPY 11/06/2027 11/06/2017 Colorectal Cancer Screening 11/06/2027 HEPATITIS C (HCV) SCREEN Completed 05/02/2010, 03/07/2010, 12/06/2009, Additional history exists documented as of this encounter Implants Implanted Type Area Composite Assembler Device Shelf Model / Identifier Expiration Serial / Lot Date Bipolar Head, [place] Uhr Bipolar [id number] #[id number] - S0 BIPOLA R Right: Dorota 12/04/2022 UH1-42-26 / Implanted: Qty: 1 on 09/17/2018 by Eric Le MD at [facility] head Hip 0 / [id number] Head, Dorota V40 Cocr Lfit 26mm/+4 #6260-9-226 - S0 Head Right : Dorota 09/29/2022 6260-9-226 / Implanted: Qty: 1 on 09/17/2018 by Eric Le MD at [facility] Hip 0 / [id number] Screw, Synthes 6.5mm Rachel 32mm Thrd 70mm #208.436 - S208.436 SCR EW Left: Synthes 208.436 / Implanted: Qty: 1 on 06/05/2018 by Vivek Trivedi MD at [facility] Hip 208.436 / 0 Screw, Synthes 6.5mm Rachel 16mm Thrd 70mm #208.409 - S208.409 SCR EW Left: Synthes 208.409 / Implanted: Qty: 2 on 06/05/2018 by Vivek Trivedi MD at [facility] Hip 208.409 / 0 Screw, Synthes 7.3mm Rachel 16mm Thrd/70mm #208.870 - S208.870 SCR EW Left: Synthes 208.870 / Implanted: Qty: 1 on 06/05/2018 by Vivek Trivedi MD at [facility] Hip 208.870 / 0 Stem, [place] Size 3 Accolade Ii 127deg #0896-6017 - S0 Stem Ri ght: Dorota 04/14/2023 3849-2361 / Implanted: Qty: 1 on 09/17/2018 by Eric Le MD at [facility] Hip 0 / [id number] Washer, Synthes 13.0 Mm #219.99 - S219.99 WASHER Left: Synthes 219.99 / Implanted: Qty: 3 on 06/05/2018 by Vivek Trivedi MD at [facility] Hip 219.99 / 0 documented as of this encounter Results Not on filedocumented in this encounter Insurance Payer Benefit Plan / Subscriber ID Effective Phone Address T iwona Group Dates [facility] [id number] 2016-Matthew [phone] O [facility]ALTH [employer] [facility] CHO[facility] [phone] [id number] [place] [address] documented as of this encounter Advance Directives Type Date Recorded Patient Health Insurance Agent Explanati on Advance Directives and Living Will Power of Dental Office Receptionist
--- OUTSIDE RECORDS SUMMARY | 2020-11-03 08:58 | XMS REPORT | Summary of Care ---
:1955 Author Organization [facility] Address [address] [place] [address] Care Team Providers Name Role Phone Shahida Kang MD Primary Care Provider Mingo Hernandez MD Unavailable MD Suad Unavailable Johan Marte MD Unavailable Unavailable Worker, Social Unavailable Unavailable Alix Adler MD Unavailable Reason for Visit Reason Comments Refill Request Encounter Details Date Type Department Care Team Description 10/01/2020 Refill [facility] Family Medicine Shahida Jeffries MD Refill Request - [address] [place] [address] [place] [address] [place] [address] [phone] Allergies Active Allergy Reactions Severity Noted Date [...] tablet 30 tablet 11 08/24/2020 Act dea 11-kthb-ugdtb acid by mouth (PREPLUS) 27 mg iron- daily. 1 mg tablet spironolactone 25 mg Take 1 tablet 30 tablet 11 09/03/2020 Active tabletIndications: by mouth Essential daily. hypertension, Edema, unspecified type MONTELUKAST 10 mg TAKE 1 TABLET 90 tablet 1 10/01/2020 Active tabletIndications: BY MOUTH EVERY Persistent cough EVENING MONTELUKAST 10 mg TAKE 1 TABLET 30 tablet 0 10/01/2020 0 Discontinued tabletIndications: BY MOUTH EVERY 20 [...] Added automatically from request for sierra rothman [id number] Dysuria 11/13/2019 UTI (urinary tract infection) 11/13/2019 Nausea & vomiting 04/14/2019 Urinary tract infection 01/28/2019 Closed right hip fracture 09/17/2018 Closed fracture of right hip, initial encounter 2017 Overview: Added automatically from request for sierra lorna [id number] Situational mixed anxiety and depressive disorder 05/25 Fracture of femoral neck, left, closed 06/04/2018 Obesity (BMI 30-39.9) 06/04/2018 Closed fracture of neck of femur 06/03/2018 Overview: Bilateral Osteoporosis, unspecified osteoporosis type, unspecifi ed pathological 05/28/2018 fracture presence liner man (current) use of systemic steroids 8 Immunization [...] syndrome, bilateral 06/19/2017 Refractive error 06/19/2017 Positive DDULEY (antinuclear antibody) 1:80 01/08/2017 Atypical rash 01/08/2017 Well woman exam 10/09/2016 Encounter for screening mammogram for breast cancer Need for Tdap vaccination 10/09/2016 Screening for colon cancer 10/09/2016 Essential hypertension 2013 Overview: ICD10 Diagnosis Term Cuff Knitter Utility Need for prophylactic immunotherapy 2013 Encounter for long-term (current) use of other medicat ions 2013 Hyperlipidemia 11/03/2012 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 [place] [address] 10/31/2020 Office [place] [address] [place] [address] [phone] 11/08/2020 Office [place] [address] [place] [address] [phone] 11/09/2020 Office Visit Endocrinology Diabetes & Familia Valladares MD Metabolism [address] [place] [address] 775 15 [phone] 11/20/2020 Nurse Visit Infusion Therapy Familia Nava MD [address] [place] [address] [phone] 1, Adc Infusion Nurse 08/15/2021 Office Visit Nephrology Jj Hernandez MD [address] [place] [address] [phone] Health Maintenance Due Date Last Done Comments [...] of this encounter Implants Implanted Type Area Leather Softener Device Shelf Model / Identifier Expiration Serial / Lot Date Bipolar Head, [place] Uhr Bipolar [id number] #[id number] - S0 BIPOLA R Right: [place] 12/04/2022 UH1-42-26 / Implanted: Qty: 1 on 09/17/2018 by Eric Le MD at [facility] head Hip 0 / [id number] Head, [place] V40 Cocr Lfit 26mm/+4 #6260-9-226 - S0 Head Right : [place] 09/29/2022 6260-9-226 / Implanted: Qty: 1 on 09/17/2018 by Eric Le MD at [facility] Hip 0 / [id number] Screw, Synthes 6.5mm Rachel 32mm Thrd 70mm #208.436 - S208.436 SCR EW Left: Synthes 208.436 / Implanted: Qty: 1 on 06/05/2018 by Vivek Trivedi MD at [facility] Hip 208.436 / 0 Screw, Synthes 6.5mm Rachel 16mm Thrd 70mm #208.409 - S208.409 SCR EW Left: Synthes 208.409 / Implanted: Qty: 2 on 06/05/2018 by Vivek Trivedi MD at [facility] Hip 208.409 / 0 Screw, Synthes 7.3mm Rachel 16mm Thrd/70mm #208.870 - S208.870 SCR EW Left: Synthes 208.870 / Implanted: Qty: 1 on 06/05/2018 by Vivek Trivedi MD at [facility] Hip 208.870 / 0 Stem, [place] Size 3 Accolade Ii 127deg #7761-3743 - S0 Stem Ri ght: [place] 04/14/2023 7217-4861 / Implanted: Qty: 1 on 09/17/2018 by Eric Le MD at [facility] Hip 0 / [id number] Washer, Synthes 13.0 Mm #219.99 - S219.99 WASHER Left: Synthes 219.99 / Implanted: Qty: 3 on 06/05/2018 by Vivek Trivedi MD at [facility] Hip 219.99 / 0 documented as of this encounter Results Not on filedocumented in this encounter Visit Diagnoses Diagnosis Persistent cough Cough documented in this encounter Insurance Payer Benefit Plan / Subscriber ID Effective Phone Address T e Group Dates HIM [facility] [id number] 2016-Matthew [phone] [facility] [employer] 86 [id number] [place] [address] documented as of this encounter Advance Directives Type Date Recorded Patient Senior Manager Asset Protection Explanati on Advance Directives and Living Will Power of Telegraphic Typewriter Mechanic
--- OUTSIDE RECORDS SUMMARY | 2020-11-03 08:59 | XMS REPORT | Summary of Care ---
:1955 Author Organization [facility] Address [address] [place] [address] Care Team Providers Name Role Phone Shahida Kang MD Primary Care Provider Mingo Hernandez MD Unavailable MD Suad Unavailable Johan Marte MD Unavailable Unavailable Worker, Social Unavailable Unavailable Alix Adler MD Unavailable Reason for Visit Reason Comments Refill Request Encounter Details Date Type Department Care Team Description 10/26/2020 Refill [facility] Family Medicine Shahida Jeffries MD Refill Request - [address] [place] [address] [place] [address] [place] [address] [phone] Allergies Active Allergy Reactions Severity Noted Date Comments Adhesive Tape-Silicones Rash High 01/28/2019 Codeine Nausea and/or Vomiting High 01/28/2019 Iodine And Iodide Containing Nausea and/or Vomiting Products Sirolimus (Bulk) Rash 02/03/2019 documented as of this encounter (statuses as of 10/26/2020) Medications Medication Sig Dispensed Refills Start Date [...] QPM METOPROLOL SUCCINATE XL TAKE 1 AND 1/2 [...] tablet by 30 tablet 11 08/24/2020 Active 79-vpna-pdqit acid mouth daily. (PREPLUS) 27 mg iron- [...] as of this encounter (statuses as of 10/26/2020) Active Problems Problem Noted Date Calculus of bile duct without cholecystitis and withou t obstruction 12/19/2019 Overview: Added automatically from request for sierra rothman [id number] Dysuria 11/13/2019 UTI (urinary tract infection) 11/13/2019 Nausea & vomiting 04/14/2019 Urinary tract infection 01/28/2019 Closed right hip fracture 09/17/2018 Closed fracture of right hip, initial encounter 2017 Overview: Added automatically from request for sierra rothman [id number] Situational mixed anxiety and depressive disorder 05/25 [...] Essential hypertension 2013 Overview: ICD10 Diagnosis Term Frozen Food Department Manager Utility Need for prophylactic immunotherapy 2013 Encounter for long-term (current) use of other medicat ions 2013 Hyperlipidemia 11/03/2012 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, 09/20/2012 unspecified CKD stage, unspecified [facility] insulin u se status Overview: ICD10 Diagnosis Term Frozen Food Department Manager Utility Kidney replaced by transplant 09/19/2011 Renal transplant 05/22/2010 Cholelithiasis 03/07/2010 GERD (gastroesophageal reflux disease) 03/07/2010 History of end stage renal disease 04/16/2007 Generalized osteoarthrosis, unspecified site 7 Hyperparathyroidism 12/01/2006 documented as of this encounter (statuses as of 10/26/2020) Resolved Problems Problem Noted Date Resolved Date Local infection of wound 2010 07/08/2016 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 05/02/2010 07/08/2016 disease stage I through stage IV, or unspecified Other reasons for seeking consultation 06/16/2008 0 04/11/2010 Overview: Mammogram Renal dialysis status 06/16/2008 04/11/2010 Overview: On peritoneal dialysis Osteoporosis 06/16/2008 04/11/2010 Overview: ICD10 Diagnosis Term Frozen Food Department Manager Utility Essential hypertension 04/16/2007 04/11/2010 Overview: ICD10 Diagnosis Term Frozen Food Department Manager Utility Renal failure 12/21/2006 04/11/2010 Overview: ICD10 Diagnosis Term Frozen Food Department Manager Utility Hypoparathyroidism 12/01/2006 12/01/2006 Hypercalcemia 10/14/2006 04/11/2010 documented as of this encounter (statuses as of 10/26/2020) Immunizations Name Administration Dates Next Due H1n1 [...] Office Visit Orthopedic Surgery Nikky Le MD [address] [place] [address] 423353 11/08/2020 Office Visit Pulmonary Disease Farhan Glez DO [address] [place] [address] [phone] 11/09/2020 Office Visit Endocrinology Diabetes & Familia Valladares MD [address] [address]75 [address] [phone] 11/13/2020 Office Visit Family Medicine Marlyn Kang MD [address] [place] [phone] 11/20/2020 Nurse Visit Infusion Therapy Familia Nava MD [address] [place] [address] [phone] 1, Adc Infusion Nurse 07/29/2021 Office Visit Ophthalmology David Lopez, OD [address] [place], [place] [address] 08/15/2021 Office Visit Nephrology Jj Hernandez MD [address] [place] [address] [phone] Health Maintenance Due Date Last Done Comments [...] of this encounter Implants Implanted Type Area Orthopaedic Doctor Device Shelf Model / Identifier Expiration Serial / Lot Date Bipolar Head, Stokes Uhr Bipolar [id number] #[id number] - S0 BIPOLA R Right: Stokes 12/04/2022 UH1-42-26 / Implanted: Qty: 1 on 09/17/2018 by Eric Le MD at [facility] head Hip 0 / [id number] Head, Dorota V40 Cocr Lfit 26mm/+4 #[id number] - S0 Head Right : Dorota 09/29/2022 6260-9-226 / Implanted: Qty: 1 on 09/17/2018 by Eric Le MD at [facility] Hip 0 / [id number] Screw, Synthes 6.5mm Rachel 32mm Thrd 70mm #208.436 - S208.436 SCR EW Left: Synthes 208.436 / Implanted: Qty: 1 on 06/05/2018 by Vivek Trivedi MD at [facility] Hip 208.436 / 0 Screw, Synthes 6.5mm Rachel 16mm Thrd 70mm #208.409 - S208.409 SCR EW Left: Synthes 208.409 / Implanted: Qty: 2 on 06/05/2018 by Vivek Trivedi MD at [facility] Hip 208.409 / 0 Screw, Synthes 7.3mm Rachel 16mm Thrd/70mm #208.870 - S208.870 SCR EW Left: Synthes 208.870 / Implanted: Qty: 1 on 06/05/2018 by Vivek Trivedi MD at [facility] Hip 208.870 / 0 Stem, Dorota Size 3 Accolade Ii 127deg #6525-3766 - S0 Stem Ri ght: Dorota 04/14/2023 [id number] / Implanted: Qty: 1 on 09/17/2018 by Eric Le MD at [facility] Hip 0 / [id number] Washer, Synthes 13.0 Mm #219.99 - S219.99 WASHER Left: Synthes 219.99 / Implanted: Qty: 3 on 06/05/2018 by Vivek Trivedi MD at [facility] Hip 219.99 / 0 documented as of this encounter Results Not on filedocumented in this encounter Visit Diagnoses Diagnosis Controlled type 2 diabetes mellitus with diabetic nephropathy, without long-term current use of insulin documented in this encounter Insurance Payer Benefit Plan / Subscriber ID Effective Phone Address T e Group Dates [facility] [id number] 2016-Matthew [phone] [phone] [place] [address] documented as of this encounter Advance Directives Type Date Recorded Patient Manager University Explanati on Advance Directives and Living Will Power of Iron Installer
--- OUTSIDE RECORDS SUMMARY | 2020-11-03 09:00 | XMS REPORT | Summary of Care ---
:1955 Author Organization [facility] Address [address] [place] [address] Care Team Providers Name Role Phone Shahida Kang MD Primary Care Provider Mingo Hernandez MD Unavailable MD Suad Unavailable Johan Marte MD Unavailable Unavailable Worker, Social Unavailable Unavailable Alix Adler MD Unavailable Reason for Visit Reason Onset Date Comments Refill Request 10/26/2020 Encounter Details Date Type Department Care Team Description 10/26/2020 Refill [facility] Family Medicine Shahida Jeffries MD Refill Request - [address] [place] [address] [place] [address] [place] [address] [phone] Allergies Active Allergy Reactions Severity Noted Date Comments Adhesive Tape-Silicones Rash High 01/28/2019 Codeine Nausea and/or Vomiting High 01/28/2019 Iodine And Iodide Containing Nausea and/or Vomiting Products Sirolimus (Bulk) Rash 02/03/2019 documented as of this encounter (statuses as of 10/26/2020) Medications Medication Sig Dispensed Refills Start End [...] by mouth at 0 Other hyperlipidemia bedtime. PREDNISONE 5 mg TAKE 1/2 30 tablet 2 Acti ve tabletIndications: TABLET BY 0 Renal transplant MOUTH DAILY recipient PNV,calcium Take 1 tablet 30 tablet 11 Acti ve 77-cugh-libxx acid by mouth 0 (PREPLUS) 27 mg [...] by mouth 2 0 (two) times daily. glipiZIDE XL 5 mg 24 Take 1 tablet 30 tablet 0 Active hr by mouth 0 tabletIndications: daily with Controlled type 2 breakfast. diabetes mellitus with diabetic nephropathy, without long-term current use of insulin GLIPIZIDE XL 5 mg 24 TAKE 1 TABLET 90 tablet 0 10/26 Discontinued hr BY MOUTH 0 20 (Reorder) tabletIndications: DAILY WITH Controlled type 2 BREAKFAST [...] Added automatically from request for sierra rothman [id number] Dysuria 11/13/2019 UTI (urinary tract infection) 11/13/2019 Nausea & vomiting 04/14/2019 Urinary tract infection 01/28/2019 Closed right hip fracture 09/17/2018 Closed fracture of right hip, initial encounter 2017 Overview: Added automatically from request for sierra rothman [id number] Situational mixed anxiety and depressive disorder 05/25 Fracture of femoral neck, left, closed 06/04/2018 Obesity (BMI 30-39.9) 06/04/2018 Closed fracture of neck of femur 06/03/2018 Overview: Bilateral Osteoporosis, unspecified osteoporosis type, unspecifi ed pathological 05/28/2018 fracture presence claim benefit specialist (current) use of systemic steroids 8 Immunization [...] Essential hypertension 2013 Overview: ICD10 Diagnosis Term Pheresis Nurse Utility Need for prophylactic immunotherapy 2013 Encounter for long-term (current) use of other medicat ions 2013 Hyperlipidemia 11/03/2012 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, 09/20/2012 unspecified CKD stage, unspecified [facility]dc insulin u se status Overview: ICD10 Diagnosis Term Pheresis Nurse Utility Kidney replaced by transplant 09/19/2011 Renal [...] Osteoporosis 06/16/2008 04/11/2010 Overview: ICD10 Diagnosis Term Pheresis Nurse Utility Essential hypertension 04/16/2007 04/11/2010 Overview: ICD10 Diagnosis Term Pheresis Nurse Utility Renal failure 12/21/2006 04/11/2010 Overview: ICD10 Diagnosis Term Pheresis Nurse Utility Hypoparathyroidism 12/01/2006 12/01/2006 Hypercalcemia 10/14/2006 04/11/2010 [...] Office Visit Orthopedic Surgery Nikky Le MD [address] [place] [address] [phone] 11/08/2020 Office Visit Pulmonary Disease Farhan Glez DO [address] [place] [address] [phone] 11/09/2020 Office Visit Endocrinology Diabetes & Familia Valladares MD Metabolism [address] [place] [address] [phone] 11/13/2020 Office Visit Family Medicine Marlyn Kang MD [address] [place], [place] [address] 11/20/2020 Nurse Visit Infusion Therapy Familia Nava MD [address] [place] [address] [phone] 1, Adc Infusion Nurse 07/29/2021 Office Visit Ophthalmology [place], David D, OD [address] [place], [place] [address] 08/15/2021 Office Visit Nephrology Jj Hernandez MD [address] [place] [address] [phone] Health Maintenance Due Date Last Done Comments [...] this encounter Implants Implanted Type Area Manager Fine Device Shelf Model / Identifier Expiration Serial / Lot Date Bipolar Head, Dorota Uhr Bipolar [id number] #[id number] - S0 BIPOLA R Right: Dorota 12/04/2022 UH1-42-26 / Implanted: Qty: 1 on 09/17/2018 by Eric Le MD at [facility] head Hip 0 / [id number] Head, Dorota V40 Cocr Lfit 26mm/+4 #6260-9-226 - S0 Head Right : [place] 09/29/2022 6260-9-226 / Implanted: Qty: 1 on 09/17/2018 by Eric Le MD at [facility] Hip 0 / [id number] Screw, Synthes 6.5mm Rachel 32mm Thrd 70mm #208.436 - S208.436 SCR EW Left: Synthes 208.436 / Implanted: Qty: 1 on 06/05/2018 by Vivek Trivedi MD at [facility] Hip 208.436 / 0 Screw, Synthes 6.5mm Rachel 16mm Thrd 70mm #208.409 - S208.409 SCR EW Left: Synthes 208.409 / Implanted: Qty: 2 on 06/05/2018 by Vivek Trivedi MD at [facility] Hip 208.409 / 0 Screw, Synthes 7.3mm Rachel 16mm Thrd/70mm #208.870 - S208.870 SCR EW Left: Synthes 208.870 / Implanted: Qty: 1 on 06/05/2018 by Vivek Trivedi MD at [facility] Hip 208.870 / 0 Stem, [place] Size 3 Accolade Ii 127deg #9429-8131 - S0 Stem Ri ght: Dorota 04/14/2023 0979-5832 / Implanted: Qty: 1 on 09/17/2018 by Eric Le MD at [facility] Hip 0 / [id number] Washer, Synthes 13.0 Mm #219.99 - S219.99 WASHER Left: Synthes 219.99 / Implanted: Qty: 3 on 06/05/2018 by Vivek Trivedi MD at [facility] Hip 219.99 / 0 documented as of this encounter Results Not on filedocumented in this encounter Visit Diagnoses Diagnosis Controlled type 2 diabetes mellitus with diabetic nephropathy, without long-term current use of insulin documented in this encounter Insurance Payer Benefit Plan / Subscriber ID Effective Phone Address [employer] Dates [facility] [id number] 2016-Matthew 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
--- OUTSIDE RECORDS SUMMARY | 2020-11-03 09:00 | XMS REPORT | Summary of Care ---
:1955 Author Organization [facility] Address [address] [place] [address] Care Team Providers Name Role Phone Shahida Kang MD Primary Care Provider Mingo Hernandez MD Unavailable MD Suad Unavailable Johan Marte MD Unavailable Unavailable Worker, Social Unavailable Unavailable Alix Adler MD Unavailable Reason for Visit Reason Comments Refill Request Encounter Details Date Type Department Care Team Description 10/26/2020 Refill [facility] Family Medicine Shahida Jeffries MD Refill Request - [address] [place] [address] [place] [address] [place] [address] [phone] Allergies Active Allergy Reactions Severity Noted Date [...] AND QPM METOPROLOL SUCCINATE TAKE 1 AND 1/2 270 [...] tabletIndications: by mouth at Other hyperlipidemia bedtime. PREDNISONE 5 mg TAKE 1/2 30 tablet 2 09/11/2020 Act dea tabletIndications: TABLET BY Renal transplant MOUTH DAILY recipient PNV,calcium Take 1 tablet 30 tablet 11 08/24/2020 Act dea 14-xhmq-wmmyd acid by mouth (PREPLUS) 27 mg iron- daily. 1 mg tablet spironolactone 25 mg Take 1 tablet 30 tablet 11 09/03/2020 Active tabletIndications: by mouth Essential daily. hypertension, Edema, unspecified type MONTELUKAST 10 mg TAKE 1 TABLET 90 tablet 1 10/01/2020 Active tabletIndications: BY MOUTH EVERY Persistent cough EVENING famotidine 20 mg Take 1 tablet 60 tablet 11 10/04/2020 Active tablet by mouth 2 (two) times daily. GLIPIZIDE XL 5 mg 24 TAKE 1 TABLET 90 tablet 0 10/26/2020 Active hr tabletIndications: BY MOUTH DAILY Controlled type 2 WITH BREAKFAST diabetes mellitus with diabetic nephropathy, without long-term current use of insulin glipiZIDE XL 5 mg 24 Take 1 tablet 30 tablet 0 10/26/202003/12 Discontinued hr tabletIndications: by mouth daily 20 Controlled type 2 with diabetes mellitus breakfast. with diabetic nephropathy, without long-term current use [...] Added automatically from request for sierra rothman [id number] Dysuria 11/13/2019 UTI (urinary tract infection) 11/13/2019 Nausea & vomiting 04/14/2019 Urinary tract infection 01/28/2019 Closed right hip fracture 09/17/2018 Closed fracture of right hip, initial encounter 2017 Overview: Added automatically from request for sierra rothman [id number] Situational mixed anxiety and depressive disorder 05/25 Fracture of femoral neck, left, closed 06/04/2018 Obesity (BMI 30-39.9) 06/04/2018 Closed fracture of neck of femur 06/03/2018 Overview: Bilateral Osteoporosis, unspecified osteoporosis type, unspecifi ed pathological 05/28/2018 fracture presence nursing home (current) use of systemic steroids 8 Immunization [...] Essential hypertension 2013 Overview: ICD10 Diagnosis Term Clinical Documentation Consultant Utility Need for prophylactic immunotherapy 2013 Encounter for long-term (current) use of other medicat ions 2013 Hyperlipidemia 11/03/2012 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, 09/20/2012 unspecified CKD stage, unspecified tank terminal gauger insulin u se status Overview: ICD10 Diagnosis Term Clinical Documentation Consultant Utility Kidney replaced by transplant 09/19/2011 Renal [...] Osteoporosis 06/16/2008 04/11/2010 Overview: ICD10 Diagnosis Term Clinical Documentation Consultant Utility Essential hypertension 04/16/2007 04/11/2010 Overview: ICD10 Diagnosis Term Clinical Documentation Consultant Utility Renal failure 12/21/2006 04/11/2010 Overview: ICD10 Diagnosis Term Clinical Documentation Consultant Utility Hypoparathyroidism 12/01/2006 12/01/2006 Hypercalcemia 10/14/2006 04/11/2010 [...] Notes Telephone Encounter - Yee Hernandez - 10/26/2020 4:04 PM CSTPlease review documented in this encounter Plan of Treatment Date Type Specialty Care Team Description 10/31/2020 Office Visit Orthopedic Surgery Nikky Le MD [address] [place] [address] [phone] 11/08/2020 Office [place] [address] [place] [phone] 11/09/2020 Office Visit Endocrinology Diabetes & Familia Valladares MD Metabolism [address] [address] [phone] 11/13/2020 Office Visit Family Medicine Marlyn Kang MD [address] [place] [phone] 11/20/2020 Nurse Visit Infusion Therapy Familia Nava MD [address] [place] [address] [phone] 1, Adc Infusion Nurse 07/29/2021 Office Visit Ophthalmology David Lopez, OD [address] [place], [place] [address] 08/15/2021 Office Visit Nephrology Jj Hernandez MD [address] [place] [address] [phone] Health Maintenance Due Date Last Done Comments [...] of this encounter Implants Implanted Type Area Medical Nurse Device Shelf Model / Identifier Expiration Serial / Lot Date Bipolar Head, Dorota Uhr Bipolar [id number] #[id number] - S0 BIPOLA R Right: Dorota [...] [facility] 0 / [id number] Screw, Synthes 6.5mm Rachel 32mm Thrd 70mm #208.436 - S208.436 SCR EW Left: Synthes 208.436 / Implanted: Qty: 1 on 06/05/2018 by Vivek Trivedi MD at [facility] Hip 208.436 / 0 Screw, Synthes 6.5mm Rachel 16mm Thrd 70mm #208.409 - S208.409 SCR EW Left: Synthes 208.409 / Implanted: Qty: 2 on 06/05/2018 by Vivek Trivedi MD at [facility] Hip 208.409 / 0 Screw, Synthes 7.3mm Rachel 16mm Thrd/70mm #208.870 - S208.870 SCR EW Left: Synthes 208.870 / Implanted: Qty: 1 on 06/05/2018 by Vivek Trivedi MD at [facility] Hip 208.870 / 0 Stem, [place] Size 3 Accolade Ii 127deg #5719-9772 - S0 Stem Ri ght: [place] 04/14/2023 6364-8301 / Implanted: Qty: 1 on 09/17/2018 by Eric Le MD at [facility] Hip 0 / [id number] Washer, Synthes 13.0 Mm #219.99 - S219.99 WASHER Left: Synthes 219.99 / Implanted: Qty: 3 on 06/05/2018 by Vivek Trivedi MD at [facility] Hip 219.99 / 0 documented as of this encounter Results Not on filedocumented in this encounter Visit Diagnoses Diagnosis Controlled type 2 diabetes mellitus with diabetic nephropathy, without long-term current use of insulin documented in this encounter Insurance Payer Benefit Plan / Subscriber ID Effective Phone Address [facility] Group Dates [facility] [id number] 2016-Matthew [phone] 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
--- OUTSIDE RECORDS SUMMARY | 2020-11-03 09:01 | XMS REPORT | Summary of Care ---
:1955 Author Organization [facility] Address [address] [place] [address] Care Team Providers Name Role Phone Shahida Kang MD Primary Care Provider Mingo Hernandez MD Unavailable MD Suad Unavailable Johan Marte MD Unavailable Unavailable Worker, Social Unavailable Unavailable Alix Adler MD Unavailable Reason for Visit Reason Comments Refill Request Encounter Details Date Type Department Care Team Description 10/29/2020 Refill [facility] Family Medicine Shahida Jeffries MD Refill Request - [address] [place] [address] [place] [address] [place] [address] [phone] Allergies Active Allergy Reactions Severity Noted Date Comments Adhesive Tape-Silicones Rash High 01/28/2019 Codeine Nausea and/or Vomiting High 01/28/2019 Iodine And Iodide Containing Nausea and/or Vomiting Products Sirolimus (Bulk) Rash 02/03/2019 documented as of this encounter (statuses as of 10/29/2020) Medications Medication Sig Dispensed Refills Start Date [...] Active tabletIndications: mouth at Other hyperlipidemia bedtime. PREDNISONE 5 mg TAKE 1/2 TABLET 30 tablet 2 09/11/2020 Active tabletIndications: BY MOUTH DAILY Renal transplant recipient PNV,calcium Take 1 tablet by 30 tablet 11 08/24/2020 Active 96-[id number]-twyew acid mouth daily. (PREPLUS) 27 mg iron- [...] 0 Active mouth 2 (two) times daily. GLIPIZIDE XL 5 mg 24 hr TAKE [...] as of this encounter (statuses as of 10/29/2020) Active Problems Problem Noted Date Calculus of bile duct without cholecystitis and withou t obstruction 12/19/2019 Overview: Added automatically from request for sierra rothman [id number] Dysuria 11/13/2019 UTI (urinary tract infection) 11/13/2019 Nausea & vomiting 04/14/2019 Urinary tract infection 01/28/2019 Closed right hip fracture 09/17/2018 Closed fracture of right hip, initial encounter 2017 Overview: Added automatically from request for sierra rothman [id number] Situational mixed anxiety and depressive disorder 05/25 Fracture of femoral neck, left, closed 06/04/2018 Obesity (BMI 30-39.9) 06/04/2018 Closed fracture of neck of femur 06/03/2018 Overview: Bilateral Osteoporosis, unspecified osteoporosis type, unspecifi ed pathological 05/28/2018 fracture presence [facility]CI (current) use of systemic steroids 8 Immunization [...] Essential hypertension 2013 Overview: ICD10 Diagnosis Term Infant Toddler Lead Teacher Utility Need for prophylactic immunotherapy 2013 Encounter for long-term (current) use of other medicat ions 2013 Hyperlipidemia 11/03/2012 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, 09/20/2012 unspecified CKD stage, unspecified retirement insulin u se status Overview: ICD10 Diagnosis Term Infant Toddler Lead Teacher Utility Kidney replaced by transplant 09/19/2011 Renal transplant 05/22/2010 Cholelithiasis 03/07/2010 GERD (gastroesophageal reflux disease) 03/07/2010 History of end stage renal disease 04/16/2007 Generalized osteoarthrosis, unspecified site 7 Hyperparathyroidism 12/01/2006 documented as of this encounter (statuses as of 10/29/2020) Resolved Problems Problem Noted Date Resolved Date Local infection of wound 2010 07/08/2016 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 05/02/2010 07/08/2016 disease stage I through stage IV, or unspecified Other reasons for seeking consultation 06/16/2008 0 04/11/2010 Overview: Mammogram Renal dialysis status 06/16/2008 04/11/2010 Overview: On peritoneal dialysis Osteoporosis 06/16/2008 04/11/2010 Overview: ICD10 Diagnosis Term Infant Toddler Lead Teacher Utility Essential hypertension 04/16/2007 04/11/2010 Overview: ICD10 Diagnosis Term Infant Toddler Lead Teacher Utility Renal failure 12/21/2006 04/11/2010 Overview: ICD10 Diagnosis Term Infant Toddler Lead Teacher Utility Hypoparathyroidism 12/01/2006 12/01/2006 Hypercalcemia 10/14/2006 04/11/2010 documented as of this encounter (statuses as of 10/29/2020) Immunizations Name Administration Dates Next Due H1n1 [...] Office Visit Orthopedic Surgery Nikky Le MD [address] [place] [address] [phone] 11/08/2020 Office Visit Pulmonary Disease Farhan Glez DO [address] [place] [address] [phone] 11/09/2020 Office Visit Endocrinology Diabetes & Familia Valladares MD [address] [address] [phone] 11/13/2020 Office Visit Family Medicine Marlyn Kang MD [address] [place] [phone] 11/20/2020 Nurse Visit Infusion Therapy Familia Nava MD [address] [place] [address] [phone] 1, Adc Infusion Nurse 07/29/2021 Office Visit Ophthalmology David Lopez, OD [address] [place], [place] [address] 08/15/2021 Office Visit Nephrology Jj Hernandez MD [address] [place] [address] [phone] Health Maintenance Due Date Last Done Comments [...] of this encounter Implants Implanted Type Area Underwriting Service Representative Device Shelf Model / Identifier Expiration Serial / Lot Date Bipolar Head, Oneida Uhr Bipolar [id number] #[id number] - S0 BIPOLA R Right: Oneida 12/04/2022 [id number] / Implanted: Qty: 1 on 09/17/2018 by Eric Le MD at [facility] head Hip 0 / [id number] Head, Dorota V40 Cocr Lfit 26mm/+4 #[id number] - S0 Head Right : Dorota 09/29/2022 6260-9-226 / Implanted: Qty: 1 on 09/17/2018 by Eric Le MD at [facility] Hip 0 / [id number] Screw, Synthes 6.5mm Rachel 32mm Thrd 70mm #208.436 - S208.436 SCR EW Left: Synthes 208.436 / Implanted: Qty: 1 on 06/05/2018 by Vivek Trivedi MD at [facility] Hip 208.436 / 0 Screw, Synthes 6.5mm Rachel 16mm Thrd 70mm #208.409 - [id number] SCR EW Left: Synthes 208.409 / Implanted: Qty: 2 on 06/05/2018 by Vivek Trivedi MD at [facility] Hip 208.409 / 0 Screw, Synthes 7.3mm Rachel 16mm Thrd/70mm #208.870 - [id number] SCR EW Left: Synthes 208.870 / Implanted: Qty: 1 on 06/05/2018 by Vivek Trivedi MD at [facility] Hip 208.870 / 0 Stem, Dorota Size 3 Accolade Ii 127deg #[id number] - S0 Stem Ri ght: Dorota 04/14/2023 0732-0792 / Implanted: Qty: 1 on 09/17/2018 by Eric Le MD at [facility] Hip 0 / [id number] Washer, Synthes 13.0 Mm #219.99 - S219.99 WASHER Left: Synthes 219.99 / Implanted: Qty: 3 on 06/05/2018 by Vivek Trivedi MD at [facility] Hip 219.99 / 0 documented as of this encounter Results Not on filedocumented in this encounter Visit Diagnoses Diagnosis Controlled type 2 diabetes mellitus with diabetic nephropathy, without long-term current use of insulin documented in this encounter Insurance Payer Benefit Plan / Subscriber ID Effective Phone Address T e Group Dates [facility] [id number] 2016-Matthew [phone] [employer] [id number] [place] [address] documented as of this encounter Advance Directives Type Date Recorded Patient Solar Manager Explanati on Advance Directives and Living Will Power of Financial Institution Vice President
--- OUTSIDE RECORDS SUMMARY | 2020-11-03 09:01 | XMS REPORT | Summary of Care ---
:1955 Author Organization [facility] Address [address] [place] [address] Care Team Providers Name Role Phone Shahida Kang MD Primary Care Provider Mingo Hernandez MD Unavailable MD Suad Unavailable Johan Marte MD Unavailable Unavailable Worker, Social Unavailable Unavailable Alix Adler MD Unavailable Reason for Visit Reason Comments Nausea Encounter Details Date Type Department Care Team Description 10/30/2020 [facility] [id number] [place] [address] Primary Care Pavilio [phone] [place] [address], [address] [place] [address] Allergies Active Allergy Reactions Severity Noted Date Comments Adhesive Tape-Silicones Rash High 01/28/2019 Codeine Nausea and/or Vomiting High 01/28/2019 Iodine And Iodide Containing Nausea and/or Vomiting Products Sirolimus (Bulk) Rash 02/03/2019 documented as of this encounter (statuses as of 10/30/2020) Medications Medication Sig Dispensed Refills Start End Date Status Date Lancets (ONE TOUCH Use as directed 100 Each 5 Active ULTRASOFT LANCETS) 4 Misc calcium carbonate 650 Take 650 mg by 0 Active mg calcium (1,625 mg) mouth daily. tablet denosumab (PROLIA) 60 inject 1 mL under 0 Active mg/mL injection the skin. 0 omeprazole 20 mg Take 1 capsule by 90 capsule 3 Active capsuleIndications: mouth daily. 0 Gastroesophageal reflux disease without esophagitis nystatin 100,000 Take 5 mL by 240 mL 1 Active unit/mL mouth 4 (four) 0 suspensionIndications times daily. : Thrush Continue to use for 48hrs after symptoms have resolved. cycloSPORINE 25 mg Take 1 capsule by 60 capsule 11 Active capsuleIndications: mouth every 12 0 Kidney replaced by (twelve) hours. transplant z94.0 calcitrioL 0.25 mcg Take 1 capsule by 90 capsule 3 Active capsuleIndications: mouth daily. 0 Kidney replaced by transplant furosemide 20 mg TK 1 T PO QAM AND 180 tablet 3 Active tablet QPM 0 METOPROLOL SUCCINATE TAKE 1 AND 1/2 270 tablet 2 Active XL 50 mg 24 hr TABLETS BY MOUTH 0 tabletIndications: EVERY 12 HOURS Essential hypertension mycophenolate sodium Take 1 tablet by 180 tablet 3 Active (MYFORTIC) 360 mg EC mouth every 12 0 tabletIndications: (twelve) hours. Acute cystitis Z94.0 without hematuria IRBESARTAN 150 mg TAKE 1 TABLET BY 30 tablet 11 Active tabletIndications: MOUTH AT BEDTIME 0 Essential hypertension pravastatin 10 mg Take 1 tablet by 90 tablet 0 Active tabletIndications: mouth at bedtime. 0 Other hyperlipidemia PREDNISONE 5 mg TAKE 1/2 TABLET 30 tablet 2 Active tabletIndications: BY MOUTH DAILY 0 Renal transplant recipient PNV,calcium Take 1 tablet by 30 tablet 11 A ctive [id number]-cbzuf acid mouth daily. 0 (PREPLUS) 27 mg iron- 1 mg tablet spironolactone 25 mg Take 1 tablet by 30 tablet 11 Active tabletIndications: mouth daily. 0 Essential hypertension, Edema, unspecified type MONTELUKAST 10 mg TAKE 1 TABLET BY 90 tablet 1 Active tabletIndications: MOUTH EVERY 0 Persistent cough EVENING famotidine 20 mg Take 1 tablet by 60 tablet 11 Active tablet mouth 2 (two) 0 times daily. GLIPIZIDE XL 5 mg 24 TAKE 1 TABLET BY 90 tablet 0 Active hr tabletIndications: MOUTH DAILY WITH 0 Controlled type 2 BREAKFAST diabetes mellitus with diabetic nephropathy, without long-term current use of insulin proMETHazine 25 mg Insert 1 30 Suppository 1 Active suppositoryIndication Suppository into 0 s: Nausea and rectum every 6 vomiting, (six) hours as intractability of needed for Nausea vomiting not and Vomiting specified, (N/V) or N/V unspecified vomiting unresponsive to type Ondansetron. Hospital, Clinic, or Other Ordered Dose Route Frequency Start Date End Date Status Facility Administered Medication darbepoetin blake (ARANESP) 60 mcg SC MONTHLY 03/14/2020 Active injection 60 mcg documented as of this encounter (statuses as of 10/30/2020) Active Problems Problem Noted Date Calculus of bile duct without cholecystitis and withou t obstruction 12/19/2019 Overview: Added automatically from request for sierra rothman [id number] Dysuria 11/13/2019 UTI (urinary tract infection) 11/13/2019 Nausea & vomiting 04/14/2019 Urinary tract infection 01/28/2019 Closed right hip fracture 09/17/2018 Closed fracture of right hip, initial encounter 2017 Overview: Added automatically from request for sierra lorna [id number] Situational mixed anxiety and depressive disorder 05/25 [...] Essential hypertension 2013 Overview: ICD10 Diagnosis Term Denial Management Representative Utility Need for prophylactic immunotherapy 2013 Encounter for long-term (current) use of other medicat ions 2013 Hyperlipidemia 11/03/2012 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, 09/20/2012 unspecified CKD stage, unspecified halfway insulin u se status Overview: ICD10 Diagnosis Term Denial Management Representative Utility Kidney replaced by transplant 09/19/2011 Renal transplant 05/22/2010 Cholelithiasis 03/07/2010 GERD (gastroesophageal reflux disease) 03/07/2010 History of end stage renal disease 04/16/2007 Generalized osteoarthrosis, unspecified site 7 Hyperparathyroidism 12/01/2006 documented as of this encounter (statuses as of 10/30/2020) Resolved Problems Problem Noted Date Resolved Date Local infection of wound 2010 07/08/2016 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 05/02/2010 07/08/2016 disease stage I through stage IV, or unspecified Other reasons for seeking consultation 06/16/2008 0 04/11/2010 Overview: Mammogram Renal dialysis status 06/16/2008 04/11/2010 Overview: On peritoneal dialysis Osteoporosis 06/16/2008 04/11/2010 Overview: ICD10 Diagnosis Term Denial Management Representative Utility Essential hypertension 04/16/2007 04/11/2010 Overview: ICD10 Diagnosis Term Denial Management Representative Utility Renal failure 12/21/2006 04/11/2010 Overview: ICD10 Diagnosis Term Denial Management Representative Utility Hypoparathyroidism 12/01/2006 12/01/2006 Hypercalcemia 10/14/2006 04/11/2010 documented as of this encounter (statuses as of 10/30/2020) Immunizations Name Administration Dates Next Due H1n1 [...] Treatment Date Type Specialty Care Team Description 11/08/2020 Office Visit Pulmonary Disease Farhan Glez DO [address] [place] [phone] 11/09/2020 Office Visit Endocrinology Diabetes & Familia Valladares MD [address] [address] [phone] 11/13/2020 Office Visit Family Medicine Marlyn Kang MD [facility] [place] [phone] 11/14/2020 Office Visit Orthopedic Surgery Nikky Le MD [address] [place] [address] [phone] 11/20/2020 Nurse Visit Infusion Therapy Familia Nava MD [address] [place] [address] [phone] 1, Adc Infusion Nurse 07/29/2021 Office Visit Ophthalmology David Lopez, OD [address] [place], [place] [address] 08/15/2021 Office Visit Nephrology Jj Hernandez MD [address] [place] [address] [phone] Health Maintenance Due Date Last Done Comments [...] of this encounter Implants Implanted Type Area Administrative Assistant Front Desk Device Shelf Model / Identifier Expiration Serial / Lot Date Bipolar Head, Dorota Uhr Bipolar [id number] #[id number] - S0 BIPOLA R Right: Dorota 12/04/2022 UH1-42-26 / Implanted: Qty: 1 on 09/17/2018 by Eric Le MD at [facility] head Hip 0 / [id number] Head, Dorota V40 Cocr Lfit 26mm/+4 #[id number] - S0 Head Right : Dorota 09/29/2022 6260-9-226 / Implanted: Qty: 1 on 09/17/2018 by Eric Le MD at [facility] Hip 0 / [id number] Screw, Synthes 6.5mm Rachel 32mm Thrd 70mm #208.436 - S208.436 SCR EW Left: Synthes 208.436 / Implanted: Qty: 1 on 06/05/2018 by Vivek Trivedi MD at [facility] Hip 208.436 / 0 Screw, Synthes 6.5mm Rachel 16mm Thrd 70mm #208.409 - S208.409 SCR EW Left: Synthes 208.409 / Implanted: Qty: 2 on 06/05/2018 by Vivek Trivedi MD at [facility] Hip 208.409 / 0 Screw, Synthes 7.3mm Rachel 16mm Thrd/70mm #208.870 - S208.870 SCR EW Left: Synthes 208.870 / Implanted: Qty: 1 on 06/05/2018 by Vivek Trivedi MD at [facility] Hip 208.870 / 0 Stem, Borup Size 3 Accolade Ii 127deg #7779-3506 - S0 Stem Ri ght: Dorota 04/14/2023 1392-1113 / Implanted: Qty: 1 on 09/17/2018 by Eric Le MD at [facility] Hip 0 / [id number] Washer, Synthes 13.0 Mm #219.99 - S219.99 WASHER Left: Synthes 219.99 / Implanted: Qty: 3 on 06/05/2018 by Vivek Trivedi MD at [facility] Hip 219.99 / 0 documented as of this encounter Results Not on filedocumented in this encounter Visit Diagnoses Diagnosis Nausea and vomiting, intractability of v omiting not specified, unspecified vomiting type - Primary documented in this encounter Insurance Payer Benefit Plan / Subscriber ID Effective Phone Address T e Group Dates [facility] [id number] 2016-Matthew [phone] [employer] [facility] [employer] [facility] [employer] [id number] [place] [address] documented as of this encounter Advance Directives Type Date Recorded Patient Veterinary Medicine Doctor Explanati on Advance Directives and Living Will Power of Metal Mockup Maker
[2020-11-03 09:57] LABS: Absolute Lymphocytes (CBC) 0.5 K/uL (0.7-4.9); Basophils % 0.4 % (0-1.3); Hematocrit 31.8 % (36.0-45.0); Lymphocytes % 8.8 % (15.3-44.8); RBC Red Blood Cell Count 3.64 M/uL (3.86-4.86)
[2020-11-03 09:58] LABS: Protime INR 0.99
[2020-11-03 10:14] LABS: ALT/SGPT 43 U/L (12-78); AST/SGOT 47 U/L (15-37); Albumin 3.4 g/dL (3.4-5.0); Alkaline Phosphatase 107 U/L (45-117); BUN Blood Urea Nitrogen 18 mg/dL (7-18); Bicarbonate 23 mmol/L (21-32); Bilirubin Direct 0.2 mg/dL (0-0.2); Bilirubin Total 0.5 mg/dL (0.2-1.0); Glucose Level 109 mg/dL (74-106); Magnesium 1.9 mg/dL (1.8-2.4); NT PRO-BNP 217 pg/mL (<125); Potassium 4.4 mmol/L (3.5-5.1); Protein, Total 7.4 g/dL (6.4-8.2); Sodium Level 128 mmol/L (136-145); Troponin (Emerg Dept Use Only) < 0.02 ng/mL (0.0-0.045)
[2020-11-03] MEDS ORDERED: NA CHLORIDE 0.9% 1,000 ML ONE (10:21)
--- NOTE | 2020-11-03 10:27 | EDPHYS ---
Physician Documentation [facility] Name: Juhi Aguilar Age: 65 yrs Sex: Female : 1955 Arrival Date: 11/03/2020 Time: 08:50 Bed 4 Private MD: TIFF Physician Wali Caba HPI: 11/03 09:43 This 65 yrs old Female presents to ER via Wheelchair with complaints of salomón Shortness Of Breath, Cough. 09:43 The patient has shortness of breath at rest, with light activity. Onset: The salomón symptoms/episode began/occurred last night. Duration: The symptoms are continuous, and are steadily getting worse. The patient's shortness of breath is aggravated by nothing, is alleviated by nothing. Associated signs and symptoms: The patient has no apparent associated signs or symptoms. Severity of symptoms: At their worst the symptoms were mild in the emergency department the symptoms are unchanged. The patient has not experienced similar symptoms in the past. Historical: - Allergies: 09:21 Adhesives; bp 09:21 Codeine; bp 09:21 sirolimus; bp 09:21 Iodine; bp - Home Meds: 09:21 famotidine 20 mg Oral tab 1 tab 2 times per day [Active]; glipizide 5 mg Oral tab 1 tab bp once daily [Active]; prednisone 5 mg Oral tab once daily [Active]; montelukast 10 mg oral tab 1 tab once daily [Active]; spironolactone 25 mg Oral tab 1 tab once daily [Active]; pravastatin 10 mg Oral tab nightly [Active]; irbesartan 150 mg oral tab 1 tab once daily [Active]; mycophenolate sodium 360 mg Oral TbEC 2 tabs 2 times per day [Active]; Lasix 40 mg Oral tab 1 tab 2 times per day [Active]; cyclosporine 25 mg Oral cap 2 cap twice a day [Active]; omeprazole 20 mg Oral cpDR 1 cap once daily [Active]; calcitriol 0.25 mcg Oral cap 1 cap once daily [Active]; calcium carbonate 650 mg calcium (1,625 mg) Oral tab daily [Active]; denosumab subcutaneous subcutaneous [Active]; cyclosporine ophthalmic 1 drop 2 times per day [Active]; - PMHx: 09:21 osteoarthritis; Cataracts; GERD; Hyperlipidemia; hyperparathyroidism; kidney bp transplant; Hypertension; Myalgia; - Immunization history:: Adult Immunizations up to date. - Social history:: Smoking status: Patient denies any tobacco usage or history of. - Family history:: not pertinent. ROS: 09:43 Constitutional: Negative for fever, chills, and weight loss, Eyes: Negative for injury, salomón pain, redness, and discharge, ENT: Negative for injury, pain, and discharge, Neck: Negative for injury, pain, and swelling, Cardiovascular: Negative for chest pain, palpitations, and edema, Abdomen/GI: Negative for abdominal pain, nausea, vomiting, diarrhea, and constipation, Back: Negative for injury and pain, : Negative for injury, bleeding, discharge, and swelling, MS/Extremity: Negative for injury and deformity, Skin: Negative for injury, rash, and discoloration, Neuro: Negative for headache, weakness, numbness, tingling, and seizure, Psych: Negative for depression, anxiety, suicide ideation, homicidal ideation, and hallucinations, Allergy/Immunology: Negative for hives, rash, and allergies, Endocrine: Negative for neck swelling, polydipsia, polyuria, polyphagia, and marked weight changes, Hematologic/Lymphatic: Negative for swollen nodes, abnormal bleeding, and unusual bruising. 09:43 Respiratory: Positive for cough, shortness of breath, at rest. Exam: 09:43 Constitutional: This is a well developed, well nourished patient who is awake, alert, salomón and in no acute distress. Head/Face: Normocephalic, atraumatic. Eyes: Pupils equal round and reactive to light, extra-ocular motions intact. Lids and lashes normal. Conjunctiva and sclera are non-icteric and not injected. Cornea within normal limits. Periorbital areas with no swelling, redness, or edema. ENT: Nares patent. No nasal discharge, no septal abnormalities noted. Tympanic membranes are normal and external auditory canals are clear. Oropharynx with no redness, swelling, or masses, exudates, or evidence of obstruction, uvula midline. Mucous membranes moist. Neck: Trachea midline, no thyromegaly or masses palpated, and no cervical lymphadenopathy. Supple, full range of motion without nuchal rigidity, or vertebral point tenderness. No Meningismus. Chest/axilla: Normal chest wall appearance and motion. Nontender with no deformity. No lesions are appreciated. Cardiovascular: Regular rate and rhythm with a normal S1 and S2. No gallops, murmurs, or rubs. Normal PMI, no JVD. No pulse deficits. Respiratory: Lungs have equal breath sounds bilaterally, clear to auscultation and percussion. No rales, rhonchi or wheezes noted. No increased work of breathing, no retractions or nasal flaring. Abdomen/GI: Soft, non-tender, with normal bowel sounds. No distension or tympany. No guarding or rebound. No evidence of tenderness throughout. Back: No spinal tenderness. No costovertebral tenderness. Full range of motion. Female : Normal external genitalia. Skin: Warm, dry with normal turgor. Normal color with no rashes, no lesions, and no evidence of cellulitis. MS/ Extremity: Pulses equal, no cyanosis. Neurovascular intact. Full, normal range of motion. Neuro: Awake and alert, GCS 15, oriented to person, place, time, and situation. Cranial nerves II-XII grossly intact. Motor strength 5/5 in all extremities. Sensory grossly intact. Cerebellar exam normal. Normal gait. Psych: Awake, alert, with orientation to person, place and time. Behavior, mood, and affect are within normal limits. Vital Signs: 09:08 BP 151 / 86; Pulse 84; Resp 20; Temp 97.8; Pulse Ox 95% ; bp 10:00 BP 136 / 85; Pulse 88; Resp 20; Pulse Ox 96% ; rb3 11:00 BP 140 / 84; Pulse 99; Resp 21; Pulse Ox 97% ; rb3 12:00 BP 138 / 81; Pulse 117; Resp 18; Pulse Ox 96% ; bp 13:00 BP 129 / 83; Pulse 113; Resp 16; Pulse Ox 94% ; bp 14:00 BP 126 / 83; Pulse 113; Resp 17; Pulse Ox 95% ; bp 15:00 BP 110 / 73; Pulse 113; Resp 19; Pulse Ox 95% ; bp 16:00 BP 112 / 87; Pulse 119; Resp 17; Pulse Ox 95% ; bp 17:00 BP 127 / 78; Pulse 125; Resp 17; Pulse Ox 96% ; bp MDM: 09:11 Patient medically screened. salomón 09:44 Differential diagnosis: Bronchitis CHF exacerbation, pneumonia, Pneumothorax pulmonary salomón edema, Pulmonary Embolism Unstable Angina. Antibiotic administration: Not indicated. The patient's Wells Deep Vein Thrombosis Score was calculated as follows: Total Score: 0-2 Pts- Low Risk. The patient's pulmonary embolism risk score was calculated as follows: Total Score: 0-2 points. This patient was found to be at low risk for a pulmonary embolism by using the Well's assessment criteria. Immunization status: Influenza vaccine: Data reviewed: vital signs, nurses notes, lab test result(s), EKG, radiologic studies, plain films. Data interpreted: employer relations representative: rate is 84 beats/min. 11/03 09:12 Order name: Basic Metabolic Panel; Complete Time: 10:17 [facility] 11/03 09:12 Order name: CBC with Diff; Complete Time: 10:17 [facility] 11/03 09:12 Order name: LFT's; Complete Time: 10: [facility] 11/03 09:12 Order name: Magnesium; Complete Time: 10: [facility] 11/03 09:12 Order name: NT PRO-BNP; Complete Time: 10:17 [facility] 11/03 09:13 Order name: PT-INR; Complete Time: 10: [facility] 11/03 09:13 Order name: Troponin (emerg Dept Use Only); Complete Time: 10:17 [facility] 11/03 09:13 Order name: Influenza Screen (a \T\ B); Complete Time: 11:02 [facility] 11/03 09:13 Order name: Blood Culture Adult (2) [facility] 11/03 12:26 Order name: SARS-COV-2 RT PCR; Complete Time: 12:34 EDMS 11/03 12:27 Order name: Urine Dipstick--Ancillary (enter results); Complete Time: 12:34 em1 11/03 12:34 Order name: CRP; Complete Time: 16:12 [facility] 11/03 12:34 Order name: Ferritin; Complete Time: 16:12 [facility] 11/03 09:13 Order name: XRAY Chest (1 view); Complete Time: 11:31 [facility] 11/03 09:13 Order name: EKG; Complete Time: 09:13 [facility] 11/03 09:13 Order name: Cardiac monitoring; Complete Time: 09:45 [facility] 11/03 09:13 Order name: EKG - Nurse/Tech; Complete Time: 09:47 [facility] 11/03 09:13 Order name: IV Saline Lock; Complete Time: 09:47 [facility] 11/03 09:13 Order name: Labs collected and sent; Complete Time: 09:47 [facility] 11/03 09:13 Order name: O2 Per Protocol; Complete Time: 09:47 [facility] 11/03 12:55 Order name: CONS Physician Consult [facility] 11/03 13:55 Order name: Procalcitonin; Complete Time: 16:12 [facility] 11/03 16:37 Order name: Diet Heart Healthy; Complete Time: 16:37 aa5 11/03 18:20 Order name: Glucose, Ancillary Testing [facility] 11/03 09:13 Order name: O2 Sat Monitoring; Complete Time: 09:45 [facility] 11/03 09:13 Order name: Urine Dipstick-Ancillary (obtain specimen); Complete Time: 12:25 [facility] Administered Medications: Discontinued: NS 0.9% 1000 ml IV at 75 ml/hr continuous 10:11 Drug: NS 0.9% 1000 ml Route: IV; Rate: 75 ml/hr; Site: right antecubital; rb3 10:26 Follow up: IV Status: Order to discontinue infusion rb3 11:03 Drug: Lasix 20 mg Route: IVP; Site: right antecubital; rb3 12:19 Follow up: Response: No adverse reaction bp 11:25 Drug: Rocephin 1 grams Route: IV; Rate: per protocol; Site: right antecubital; bp 12:18 Follow up: IV Status: Completed infusion; IV Intake: 100ml bp 12:00 Drug: Zithromax 500 mg Route: IVPB; Infused Over: 1 hrs; Site: right antecubital; bp 13:05 Follow up: IV Status: Completed infusion; IV Intake: 250ml bp 12:45 Drug: predniSONE 20 mg Route: PO; bp 13:06 Follow up: Response: No adverse reaction bp Disposition: 11/03/20 10:27 Hospitalization ordered by Wayne Bowens for Inpatient Admission. Preliminary diagnosis are Dyspnea, Chronic kidney disease (CKD) - hx renal transplant, Kidney transplant status, Unspecified combined systolic (congestive) and diastolic (congestive) heart failure, Pneumonia, unspecified organism - mild right pneumonia,COVID POSITIVE. - Bed requested for Intensive Care Unit. - Status is Inpatient Admission. rv - Condition is Stable. - Problem is new. - Symptoms have improved. Signatures: Dispatcher [employer] EDLA Wali Caba MD MD cha Martinez, Eric em1 Joe Rodriguez, GROUND CONTROL APPROACH TECHNICIAN-C GROUND CONTROL APPROACH TECHNICIAN-Cla1 Pelon Calloway, RN RN bp Junior Lorenzo, RN RN rv Shanae Mckeon, RN RN rb3 Corrections: (The following items were deleted from the chart) 10:53 09:13 CORONAVIRUS+ ordered. EDLA EDMS 11:09 10:27 Hospitalization Ordered by Wayne Bowens MD for Observation. Preliminary salomón diagnosis is Dyspnea; Chronic kidney disease (CKD) - hx renal transplant; Kidney transplant status; Unspecified combined systolic (congestive) and diastolic (congestive) heart failure. Bed requested for Telemetry/MedSurg (observation). Status is Observation. Condition is Stable. Problem is new. Symptoms have improved. salomón 12:33 11:09 11/03/2020 10:27 Hospitalization Ordered by Wayne Bowens MD for Inpatient salomón Admission. Preliminary diagnosis is Dyspnea; Chronic kidney disease (CKD) - hx renal transplant; Kidney transplant status; Unspecified combined systolic (congestive) and diastolic (congestive) heart failure; Pneumonia, unspecified organism - mild right pneumonia. Bed requested for Telemetry/MedSurg (Inpatient). Status is Inpatient Admission. Condition is Stable. Problem is new. Symptoms have improved. salomón 17:34 12:33 11/03/2020 10:27 Hospitalization Ordered by Wayne Bowens MD for Inpatient bp Admission. Preliminary diagnosis is Dyspnea; Chronic kidney disease (CKD) - hx renal transplant; Kidney transplant status; Unspecified combined systolic (congestive) and diastolic (congestive) heart failure; Pneumonia, unspecified organism - mild right pneumonia,COVID POSITIVE. Bed requested for Telemetry/MedSurg (Inpatient). Status is Inpatient Admission. Condition is Stable. Problem is new. Symptoms have improved. salomón 18:41 17:34 11/03/2020 10:27 Hospitalization Ordered by Wayne Bowens MD for Inpatient em1 Admission. Preliminary diagnosis is Dyspnea; Chronic kidney disease (CKD) - hx renal transplant; Kidney transplant status; Unspecified combined systolic (congestive) and diastolic (congestive) heart failure; Pneumonia, unspecified organism - mild right pneumonia,COVID POSITIVE. Bed requested for [facility] ER HOLD. Status is Inpatient Admission. Condition is Stable. Problem is new. Symptoms have improved. bp 19:43 18:41 11/03/2020 10:27 Hospitalization Ordered by Wayne Bowens MD for Inpatient rv Admission. Preliminary diagnosis is Dyspnea; Chronic kidney disease (CKD) - hx renal transplant; Kidney transplant status; Unspecified combined systolic (congestive) and diastolic (congestive) heart failure; Pneumonia, unspecified organism - mild right pneumonia,COVID POSITIVE. Bed requested for Intensive Care Unit. Status is Inpatient Admission. Condition is Stable. Problem is new. Symptoms have improved. em1
--- NOTE | 2020-11-03 10:27 | ER ---
Nurse's Notes [facility] Name: Juhi Aguilar Age: 65 yrs Sex: Female : 1955 Arrival Date: 11/03/2020 Time: 08:50 Bed 4 Private MD: Diagnosis: Dyspnea;Chronic kidney disease (CKD)-hx renal transplant;Kidney transplant status;Unspecified combined systolic (congestive) and diastolic (congestive) heart failure;Pneumonia, unspecified organism-mild right pneumonia,COVID POSITIVE Presentation: 11/03 09:08 Chief complaint: Patient's son or daughter states: SOB, COUGH AND NO APPETITE x4 DAYS. bp Coronavirus screen: At this time, the client does not indicate any symptoms associated with coronavirus-19. Ebola Screen: No symptoms or risks identified at this time. Initial Sepsis Screen: Does the patient meet any 2 criteria? No. Patient's initial sepsis screen is negative. Does the patient have a suspected source of infection? No. Patient's initial sepsis screen is negative. Risk Assessment: Do you want to hurt yourself or someone else? Patient reports no desire to harm self or others. Onset of symptoms is unknown. 09:08 Method Of Arrival: Wheelchair bp 09:08 Acuity: LUIGI 3 bp Triage Assessment: 09:10 General: Appears in no apparent distress. comfortable, Behavior is cooperative, bp appropriate for age, anxious. Pain: Denies pain. EENT: No deficits noted. Neuro: No deficits noted. Cardiovascular: No deficits noted. Respiratory: Reports shortness of breath cough that is Onset: The symptoms/episode began/occurred 4 DAYS AGO, the patient has mild shortness of breath. GI: No signs and/or symptoms were reported involving the gastrointestinal system. : No signs and/or symptoms were reported regarding the genitourinary system. Derm: No deficits noted. Musculoskeletal: No deficits noted. Historical: - Allergies: 09:21 Adhesives; bp 09:21 Codeine; bp 09:21 sirolimus; bp 09:21 Iodine; bp - Home Meds: 09:21 famotidine 20 mg Oral tab 1 tab 2 times per day [Active]; glipizide 5 mg Oral tab 1 tab bp once daily [Active]; prednisone 5 mg Oral tab once daily [Active]; montelukast 10 mg oral tab 1 tab once daily [Active]; spironolactone 25 mg Oral tab 1 tab once daily [Active]; pravastatin 10 mg Oral tab nightly [Active]; irbesartan 150 mg oral tab 1 tab once daily [Active]; mycophenolate sodium 360 mg Oral TbEC 2 tabs 2 times per day [Active]; Lasix 40 mg Oral tab 1 tab 2 times per day [Active]; cyclosporine 25 mg Oral cap 2 cap twice a day [Active]; omeprazole 20 mg Oral cpDR 1 cap once daily [Active]; calcitriol 0.25 mcg Oral cap 1 cap once daily [Active]; calcium carbonate 650 mg calcium (1,625 mg) Oral tab daily [Active]; denosumab subcutaneous subcutaneous [Active]; cyclosporine ophthalmic 1 drop 2 times per day [Active]; - PMHx: 09:21 osteoarthritis; Cataracts; GERD; Hyperlipidemia; hyperparathyroidism; kidney bp transplant; Hypertension; Myalgia; - Immunization history:: Adult Immunizations up to date. - Social history:: Smoking status: Patient denies any tobacco usage or history of. - Family history:: not pertinent. Screenin:26 Abuse screen: Denies threats or abuse. Denies injuries from another. Nutritional bp screening: No deficits noted. Tuberculosis screening: No symptoms or risk factors identified. Fall Risk None identified. Assessment: 09:10 General: SEE TRIAGE NOTE. Cardiovascular: Rhythm is sinus rhythm. Respiratory: Airway bp is patent Respiratory effort is even, unlabored, Breath sounds are coarse bilaterally. 10:00 Reassessment: Patient appears in no apparent distress at this time. No changes from rb3 previously documented assessment. 11:00 Reassessment: Patient appears in no apparent distress at this time. Pt. resting with rb3 eyes closed, respirations even, unlabored. family at the bedside. 11:00 Reassessment: Patient appears in no apparent distress at this time. No changes from bp previously documented assessment. Patient and/or family updated on plan of care and expected duration. Pain level reassessed. Patient is alert, oriented x 3, equal unlabored respirations, skin warm/dry/pink. ADMIT INITIATED. 12:00 Reassessment: Patient appears in no apparent distress at this time. No changes from bp previously documented assessment. Patient and/or family updated on plan of care and expected duration. Pain level reassessed. Patient is alert, oriented x 3, equal unlabored respirations, skin warm/dry/pink. PT OOB TO B/S COMMODE. ADMIT IN PROCESS. 13:00 Reassessment: No changes from previously documented assessment. Patient and/or family bp updated on plan of care and expected duration. Pain level reassessed. Patient is alert, oriented x 3, equal unlabored respirations, skin warm/dry/pink. DR BOWENS AT B/S FOR ADMIT. PT RESULTED COVID +, PER LAB. 15:00 Reassessment: No changes from previously documented assessment. Patient and/or family bp updated on plan of care and expected duration. Pain level reassessed. Patient is alert, oriented x 3, equal unlabored respirations, skin warm/dry/pink. ADMIT IN PROCESS. 17:00 Reassessment: [facility] Vital Signs: 09:08 BP 151 / 86; Pulse 84; Resp 20; Temp 97.8; Pulse Ox 95% ; bp 10:00 BP 136 / 85; Pulse 88; Resp 20; Pulse Ox 96% ; rb3 11:00 BP 140 / 84; Pulse 99; Resp 21; Pulse Ox 97% ; rb3 12:00 BP 138 / 81; Pulse 117; Resp 18; Pulse Ox 96% ; bp 13:00 BP 129 / 83; Pulse 113; Resp 16; Pulse Ox 94% ; bp 14:00 BP 126 / 83; Pulse 113; Resp 17; Pulse Ox 95% ; bp 15:00 BP 110 / 73; Pulse 113; Resp 19; Pulse Ox 95% ; bp 16:00 BP 112 / 87; Pulse 119; Resp 17; Pulse Ox 95% ; bp 17:00 BP 127 / 78; Pulse 125; Resp 17; Pulse Ox 96% ; bp ED Course: 08:50 Patient arrived in ED. ag5 08:59 Pelon Calloway, RN is Primary Nurse. bp 09:09 Triage completed. bp 09:10 Inserted saline lock: 20 gauge in right antecubital area, using aseptic technique. bp Blood collected. 09:11 Wali Caba MD is Attending Physician. salomón 09:21 Arm band placed on. bp 09:25 Patient has correct armband on for positive identification. Bed in low position. Call bp light in reach. Side rails up X2. Adult w/ patient. 10:23 Wayne Bowens MD is Hospitalizing Provider. salomón 10:25 XRAY Chest (1 view) In Process Unspecified. EDMS 17:39 No provider procedures requiring assistance completed. Patient admitted, IV remains in bp place. Administered Medications: Discontinued: NS 0.9% 1000 ml IV at 75 ml/hr continuous 10:11 Drug: NS 0.9% 1000 ml Route: IV; Rate: 75 ml/hr; Site: right antecubital; rb3 10:26 Follow up: IV Status: Order to discontinue infusion rb3 11:03 Drug: Lasix 20 mg Route: IVP; Site: right antecubital; rb3 12:19 Follow up: Response: No adverse reaction bp 11:25 Drug: Rocephin 1 grams Route: IV; Rate: per protocol; Site: right antecubital; bp 12:18 Follow up: IV Status: Completed infusion; IV Intake: 100ml bp 12:00 Drug: Zithromax 500 mg Route: IVPB; Infused Over: 1 hrs; Site: right antecubital; bp 13:05 Follow up: IV Status: Completed infusion; IV Intake: 250ml bp 12:45 Drug: predniSONE 20 mg Route: PO; bp 13:06 Follow up: Response: No adverse reaction bp Intake: 12:18 IV: 100ml; Total: 100ml. bp 13:05 IV: 250ml; Total: 350ml. bp Outcome: 10:27 Decision to Hospitalize by Provider. [facility] 17:00 Admitted to ICU accompanied by tech, via wheelchair, room 3, Other sbar, ekg Report rv called to CAITLYN SCHROEDER 19:42 Condition: good rv 19:42 Instructed on the need for admit. rv 19:43 Patient left the ED. rv Signatures: Dispatcher [employer] EDWali Sheriff MD MD cha Peltier, Brian RN RN bp Junior Lorenzo RN RN rv Martha Del Toro 5 Shanae Mckeon, RN RN rb3 Corrections: (The following items were deleted from the chart) 09:47 09:08 Pulse 84bpm; Resp 20bpm; Pulse Ox 95%; Temp 97.8F; bp bp 12:14 12:00 Reassessment: PT OOB TO B/S COMMODE. ADMIT IN PROCESS bp bp 19:42 17:00 Admitted to ER Hold. Please see [facility] for further documentation. bp rv
--- NOTE | 2020-11-03 11:12 | RAD REPORT ---
EXAM DESCRIPTION: Ehsan Single View11/03/2020 10:25 am CLINICAL HISTORY: Cough COMPARISON: 2018 FINDINGS: Right lung mildly hazy Left lung appears clear Heart is borderline enlarged IMPRESSION: Right lung mildly hazy probably a mild pneumonia
[2020-11-03] MEDS ORDERED: FUROSEMIDE 20 MG/ 2ML VIAL ONE (11:14)
[2020-11-03] MEDS ORDERED: NA CHLORIDE 0.9% 100 ML ONE (11:46)
[2020-11-03] MEDS ORDERED: CEFTRIAXONE/SWI 1gm 1 GM/10 ML SYR ONE (11:46)
[2020-11-03] MEDS ORDERED: AZITHROMYCIN IV 500 MG in NA CHLORIDE 0.9% 250 ML IVPB ONE (12:00)
[2020-11-03 12:32] LABS: Urine Blood NEGATIVE (NEG); Urine Glucose NEGATIVE (NEG); Urine Protein NEGATIVE (NEG); Urine pH 5.5 (5.0-7.0)
--- NOTE | 2020-11-03 13:13 | P.HP ---
Certification for Inpatient Patient admitted to: Observation With expected LOS: <2 Midnights Practitioner: I am a practitioner with admitting privileges, knowledge of patient current condition, hospital course, and medical plan of care. Services: Services provided to patient in accordance with Admission requirements found in Title 42 Section 412.3 of the Code of Federal Regulations Patient History Date of Service: 11/03/20 Reason for admission: Shortness of breath, COVID-19 Pneumonia History of Present Illness: 65-year-old female, PMH: NIDDM2, GERD, hypertension, kidney transplant (2009) 2 presents to the ED with a few days of shortness of breath and cough. She also reports some loose stools during this time as well. She denies fevers, but does endorse some chills at home. She denies any recent sick contacts and states he has been practicing social distance guidelines. She also endorses fatigue, generalized weakness, and decreased appetite / PO intake. Workup revealed no leukocytosis, mild hyponatremia, creatinine appears at baseline, negative troponin, BNP: 217. CXR: Mild right lung haziness may be pneumonia During my interview, who was resulted that she was COVID positive Allergies adhesive tape Allergy (Verified 04/13/19 08:57) Itching/Hives/Rash iodine Allergy (Verified 04/13/19 08:58) Nausea/Vomiting sirolimus Allergy (Verified 04/13/19 08:57) Itching/Hives/Rash Home Medications: Calcitrol [Rocaltrol*] 1 cap PO DAILY 04/13/19 Calcium Carbonate 650 mg PO DAILY 04/13/19 Cyclosporine [Restasis] 1 drop EACH EYE BID 04/13/19 Famotidine [Pepcid*] 20 mg PO BIDAC 04/13/19 Glipizide [Glipizide ER] 1 tab PO DAILY 04/13/19 Metoprolol Succinate [Toprol Xl*] 75 mg PO BID 04/13/19 Mycophenolate Sodium [Myfortic] 1 tab PO BID 04/13/19 Omeprazole 1 cap PO BREAKFAST 04/13/19 Pravastatin Sodium 10 mg PO BEDTIME 04/13/19 Spironolactone 25 mg PO DAILY 04/13/19 cycloSPORINE [Sandimmune] 50 mg PO BID 04/13/19 predniSONE [Prednisone] 5 mg PO DAILY 04/13/19 - Past Medical/Surgical History Diabetic: No -: ESRD-S/P RENAL TRANSPLANT -: hyperlipidemia -: hypertension -: myalgia -: osteoarthritis -: cataracts -: GERD -: RENAL TRANSPLANT -: Bilateral hip replacement - Family History Family History: Reviewed- Non-Contributory - Social History Smoking Status: Never smoker Alcohol use: No CD- Drugs: No Place of Residence: Home Physical Examination - Physical Exam General: Alert, Other (appears fatigued) Respiratory: Crackles/rales (Mild at bilateral bases, nonlabored on room air) Cardiovascular: No edema, Regular rate/rhythm Gastrointestinal: Soft and benign, No tenderness Musculoskeletal: No tenderness Integumentary: No rashes, No significant lesion Neurological: Normal speech, Normal affect - Studies Laboratory Data (last 24 hrs) 11/03/20 09:45: PT 11.7, INR 0.99 11/03/20 09:45: WBC 5.9, Hgb 10.9 L, Hct 31.8 L, Plt Count 222 11/03/20 09:45: Sodium 128 L, Potassium 4.4, BUN 18, Creatinine 1.31 H, Glucose 109 H, Magnesium 1.9, Total Bilirubin 0.5, AST 47 H, ALT 43, Alkaline Phosphatase 107 Microbiology Data (last 24 hrs): 11/03/20 09:41 Nasopharnyx Influenza Type A Antigen Screen - Final 11/03/20 09:41 Nasopharnyx Influenza Type B Antigen Screen - Final Assessment and Plan - Advance Directives Does patient have a Living Will: No Does patient have a Durable POA for Healthcare: No Physician Review Additional Text: Shortness of breath, COVID pneumonia ESRD s/p renal transplant GERD Hypertension -will bring patient in for obs given immunocompromised state and worsening symptoms of COVID -pulmonology consulted -prednisone 20mg PO BID for now -trend CRP -obtain home medications and restart as appropriate -will consult nephrology if worsening renal function possible dc home tomorrow Time Spent Managing Pts Care (In Minutes): 55
[2020-11-03 13:54] LABS: C-Reactive Protein 30.4 mg/L (<3.00); Ferritin 600.6 ng/mL (8-388)
[2020-11-03] MEDS: INSULIN -REGULAR HUMAN 50 UNIT/0.5 ML ML SQ SCH ×2 (17:30→21:00)
[2020-11-03 18:27] VITALS: BMI 30.2
[2020-11-03] MEDS: CYCLOSPORINE OPTH SCH (21:00)
[2020-11-03] MEDS: CYCLOSPORINE 25 MG PO SCH (21:00)
[2020-11-03] MEDS: MYCOPHENOLATE SODIUM 360 MG PO SCH (21:00)
[2020-11-03] MEDS: predniSONE 20 MG TAB PO SCH (22:10)
[2020-11-04 06:11] LABS: Absolute Lymphocytes (CBC) 0.3 K/uL (0.7-4.9); Basophils % 0.2 % (0-1.3); Lymphocytes % 6.4 % (15.3-44.8); MPV 8.1 fL (7.6-11.3); RBC Red Blood Cell Count 3.76 M/uL (3.86-4.86)
[2020-11-04 06:57] LABS: Bilirubin Total 0.5 mg/dL (0.2-1.0); Ferritin 573.5 ng/mL (8-388); Magnesium 1.9 mg/dL (1.8-2.4); Potassium 4.8 mmol/L (3.5-5.1); Protein, Total 7.2 g/dL (6.4-8.2)
[2020-11-04] MEDS: INSULIN -REGULAR HUMAN 50 UNIT/0.5 ML ML SQ SCH ×4 (07:30→21:23)
[2020-11-04] MEDS ORDERED: NA CHLORIDE 0.9% 1,000 ML IV SCH (08:00)
--- NOTE | 2020-11-04 08:44 | P.PN ---
Subjective Date of Service: 11/04/20 Chief Complaint: Shortness of breath, COVID-19 Pneumonia Subjective: Other (patient feels breathing is slightly improved, but reports diarrhea is increasing with decreased appetite, didn't eat/drink much yesterday / this morning. denies nausea/vomiting) Physical Examination - Vital Signs Temperature: 98.5 F Blood Pressure: 104/75 Pulse: 81 Respirations: 23 Pulse Ox (%): 92 - Physical Exam General: Alert, In no apparent distress, Oriented x3 HEENT: Sclerae nonicteric Respiratory: Other (non-labored on RA) Cardiovascular: No edema, Regular rate/rhythm Gastrointestinal: Soft and benign, Non-distended, No tenderness Neurological: Normal speech, Normal affect - Studies Laboratory Data (last 24 hrs) 11/03/20 09:45: PT 11.7, INR 0.99 11/03/20 09:45: WBC 5.9, Hgb 10.9 L, Hct 31.8 L, Plt Count 222 11/03/20 09:45: Sodium 128 L, Potassium 4.4, BUN 18, Creatinine 1.31 H, Glucose 109 H, Magnesium 1.9, Total Bilirubin 0.5, AST 47 H, ALT 43, Alkaline Phosphatase 107 Microbiology Data (last 24 hrs): 11/03/20 09:41 Nasopharnyx Influenza Type A Antigen Screen - Final 11/03/20 09:41 Nasopharnyx Influenza Type B Antigen Screen - Final Assessment & Plan Physician Review Additional Text: Shortness of breath, COVID pneumonia CANDIE on CKD3, h/o ESRD s/p renal transplant Hyponatremia, hypochloremia GERD Hypertension -she feels her breathing is slightly better, remains with SpO2 > 92% on RA at rest -CRP increased, on Prednisone 20mg PO BID, given worsening diarrhea, will switch to IV solumedrol 40 BID for now -patient's daughter to bring in her immunosuppressants/home medications that are non formulary so the patient can restart -renal function worsening, likely as a result from her increased diarrhea/fluid loss and decreased p.o. intake, will start NS at 50 mL/hour for now -given her renal history / transplant, will consult nephrology -UA and urine studies pending Dispo: anticipate dc home, likely in the next 24-48hrs Time Spent Managing Pts Care (In Minutes): 40
[2020-11-04] MEDS: predniSONE 20 MG TAB PO SCH (09:00)
[2020-11-04] MEDS: CYCLOSPORINE OPTH SCH ×2 (09:00→21:00)
[2020-11-04] MEDS: MYCOPHENOLATE SODIUM 360 MG PO SCH ×2 (09:00→21:00)
[2020-11-04] MEDS: CYCLOSPORINE 25 MG PO SCH ×2 (09:00→21:00)
[2020-11-04] MEDS: CALCIUM CARBONATE 500 MG TAB PO SCH (10:10)
[2020-11-04] MEDS: CALCITROL 0.25 MCG CAP PO SCH (10:10)
[2020-11-04] MEDS: FAMOTIDINE 20 MG TAB PO SCH (10:10)
--- NOTE | 2020-11-04 10:59 | P.CNS ---
Date of Consult: 11/04/20 Reason for Consult: Hyponatremia Requesting Physician: Wayne Bowens Chief Complaint: Shortness of breath, COVID-19 Pneumonia History of Present Illness: 65-year-old female, PMH: NIDDM2, GERD, hypertension, kidney transplant (2009) 2 presents to the ED with a few days of shortness of breath and cough. She also reports some loose stools during this time as well. She denies fevers, but does endorse some chills at home. She denies any recent sick contacts and states he has been practicing social distance guidelines. She also endorses fatigue, generalized weakness, and decreased appetite / PO intake. Workup revealed no leukocytosis, mild hyponatremia, creatinine appears at baseline, negative troponin, BNP: 217. CXR: Mild right lung haziness may be pneumonia 09:43 This 65 yrs old Female presents to ER via Wheelchair with complaints of salomón Shortness Of Breath, Cough. 09:43 The patient has shortness of breath at rest, with light activity. Onset: The salomón symptoms/episode began/occurred last night. Duration: The symptoms are continuous, and are steadily getting worse. The patient's shortness of breath is aggravated by nothing, is alleviated by nothing. Associated signs and symptoms: The patient has no apparent associated signs or symptoms. Severity of symptoms: At their worst the symptoms were mild in the emergency department the symptoms are unchanged. The patient has not experienced similar symptoms in the past. Allergies adhesive tape Allergy (Verified 04/13/19 08:57) Itching/Hives/Rash iodine Allergy (Verified 04/13/19 08:58) Nausea/Vomiting sirolimus Allergy (Verified 04/13/19 08:57) Itching/Hives/Rash Home medications list reviewed: Yes Home Medications: Calcitrol [Rocaltrol*] 1 cap PO DAILY 04/13/19 Calcium Carbonate 650 mg PO DAILY 04/13/19 Cyclosporine [Restasis] 1 drop EACH EYE BID 04/13/19 Famotidine [Pepcid*] 20 mg PO BIDAC 04/13/19 Glipizide [Glipizide ER] 1 tab PO DAILY 04/13/19 Metoprolol Succinate [Toprol Xl*] 75 mg PO BID 04/13/19 Mycophenolate Sodium [Myfortic] 1 tab PO BID 04/13/19 Omeprazole 1 cap PO BREAKFAST 04/13/19 Pravastatin Sodium 10 mg PO BEDTIME 04/13/19 Spironolactone 25 mg PO DAILY 04/13/19 cycloSPORINE [Sandimmune] 50 mg PO BID 04/13/19 predniSONE [Prednisone] 5 mg PO DAILY 04/13/19 - Past Medical/Surgical History Diabetic: No -: ESRD-S/P RENAL TRANSPLANT -: hyperlipidemia -: hypertension -: myalgia -: osteoarthritis -: cataracts -: GERD -: RENAL TRANSPLANT -: Bilateral hip replacement - Social History Smoking Status: Unknown if ever smoked Alcohol use: No CD- Drugs: No Place of Residence: Home Review of Systems 10-point ROS is otherwise unremarkable General: Weakness, Malaise Respiratory: Cough, Shortness of Breath Gastrointestinal: Diarrhea Physical Examination Temp Pulse Resp BP Pulse Ox 98.5 F 81 23 H 104/75 92 11/04/20 09:16 11/04/20 09:16 11/04/20 09:16 11/04/20 09:16 11/04/20 09:16 General: In no apparent distress, Oriented x3, Cooperative HEENT: Atraumatic Neck: Supple Respiratory: Clear to auscultation bilaterally Cardiovascular: No edema, Regular rate/rhythm Gastrointestinal: Non-distended, Tenderness Musculoskeletal: No clubbing, No contractures Integumentary: No rashes, No cyanosis Neurological: Normal speech Blood work reviewed in the chart. Imagings Data: EXAM DESCRIPTION: Ehsan Single View11/03/2020 10:25 am CLINICAL HISTORY: Cough COMPARISON: 2019 FINDINGS: Right lung mildly hazy Left lung appears clear Heart is borderline enlarged IMPRESSION: Right lung mildly hazy probably a mild pneumonia Conclusions/Impression: A/ CANDIE may be due to hypovolemia. Hyponatremia. Acidosis. Hypocalcemia. CKD III. Renal transplant status. Immunosuppression status. Anemia in chronic illness. COVID-19 PNA with dyspnea and diarrhea. P/ Continue current POC and Medications. Increase IVF. Star oral bicarb. Start Cholecalciferol. Restart immunosuppressive therapy. COVID Protocol/ Oxygen supplementation. No NSAIDs. AM labs. Daily weight. Thank you kindly for the consultation. Critical Care: Yes (>30min)
[2020-11-04] MEDS: NA CHLORIDE 0.9% 1,000 ML IV SCH (11:31)
[2020-11-04 12:00] LABS: C.diff Antigen/Toxin Ag neg : Tox neg (NEG : NEG)
[2020-11-04] MEDS: METHYLPREDNISOLONE 40 MG INJ IV SCH ×2 (12:46→21:23)
[2020-11-04] MEDS: SODIUM BICARB 325 MG TAB PO SCH ×2 (12:48→17:22)
[2020-11-05] MEDS: NA CHLORIDE 0.9% 1,000 ML IV SCH (00:33)
[2020-11-05 01:33] LABS: Urine Appearance CLEAR; Urine Bilirubin NEGATIVE (NEG); Urine Blood NEGATIVE (NEG); Urine Color YELLOW; Urine Glucose NEGATIVE (NEG); Urine Protein 1+ (NEG); Urine Specific Gravity 1.015 (1.005-1.030); Urine Urobilinogen 0.2 mg/dL (0.2-1.0)
[2020-11-05 01:35] LABS: Urine Microscopic Reflex ORDER UMIC
[2020-11-05 01:59] LABS: Urine Bacteria <20 /HPF (<20); Urine RBC <5 /HPF (NONE SEEN)
[2020-11-05 05:30] LABS: Albumin 2.8 g/dL (3.4-5.0); C-Reactive Protein 33.6 mg/L (<3.00); Ferritin 509.7 ng/mL (8-388); Phosphorus 2.3 mg/dL (2.5-4.9); Potassium 4.2 mmol/L (3.5-5.1)
[2020-11-05] MEDS: POTASS/SODIUM PHOSPHATE 1 PKT POWD.PACK PO SCH ×3 (07:00→09:00)
[2020-11-05] MEDS: INSULIN -REGULAR HUMAN 50 UNIT/0.5 ML ML SQ SCH ×2 (07:30→12:43)
[2020-11-05] MEDS: MYCOPHENOLATE SODIUM 360 MG PO SCH (09:00)
[2020-11-05] MEDS: CYCLOSPORINE 25 MG PO SCH (09:00)
[2020-11-05] MEDS ORDERED: VITAMIN D 5,000 UNIT CAP PO SCH (09:00)
[2020-11-05] MEDS: CYCLOSPORINE OPTH SCH (09:00)
[2020-11-05] MEDS: METHYLPREDNISOLONE 40 MG INJ IV SCH (09:18)
[2020-11-05] MEDS: CALCITROL 0.25 MCG CAP PO SCH (09:18)
[2020-11-05] MEDS: CALCIUM CARBONATE 500 MG TAB PO SCH (09:19)
[2020-11-05] MEDS: FAMOTIDINE 20 MG TAB PO SCH (09:19)
[2020-11-05] MEDS: SODIUM BICARB 325 MG TAB PO SCH ×2 (09:20→12:43)
[2020-11-05 11:36] VITALS: O2SAT 95
--- NOTE | 2020-11-05 12:08 | P.DS ---
Admission Date: 11/03/20 Discharge Date: 11/05/20 Disposition: ROUTINE DISCHARGE Discharge Condition: GOOD Reason for Admission: Shortness of breath, COVID-19 Pneumonia Consultations: Nephrology - Dr. Morataya Procedures: CXR (11/03): R lung mildly hazy, probably a mild pneumonia Problem List: Shortness of breath, COVID pneumonia Hyponatremia CANDIE on CKD3, h/o ESRD s/p renal transplant Hyponatremia, hypochloremia GERD Hypertension Brief History of Present Illness: 65-year-old female, PMH: NIDDM2, GERD, HTN, kidney transplant (2009) 2 presents to the ED with a few days of shortness of breath and cough. She also reports some loose stools during this time as well. She denies fevers, but does endorse some chills at home. She denies any recent sick contacts and states he has been practicing social distance guidelines. She also endorses fatigue, generalized weakness, and decreased appetite / PO intake. Workup revealed no leukocytosis, hyponatremia (128), creatinine: 1.3, negative troponin, BNP: 217. CXR: Mild right lung haziness may be pneumonia During my interview, it resulted that she was COVID positive Hospital Course: Patient was initially treated with PO prednisone and gentle fluids. She remained with SpO2 >92% on room air. The following day she had worsening of her diarrhea, continued with hyponatremia, and worsening of her kidney function. Nephrology was consulted, her IVF were increased, given bicarb, and her prednisone was switched to IV Solumedrol. Patient had notable improvement in her symptoms and bloodwork. She felt well and was discharged home on 11/05 - to complete 2 week course of prednisone. She was advised on taking a daily aspirin 81mg for the next few weeks due to COVID-19 infection. Her hyponatremia and CANDIE was felt due to hypovolemia in setting of COVID-19 infection / diarrhea and decreased PO intake. Vital Signs/Physical Exam: Temp Pulse Resp BP Pulse Ox 97.4 F 87 17 140/78 93 11/05/20 04:00 11/05/20 11:00 11/05/20 11:00 11/05/20 11:00 11/05/20 11:00 General: Alert, In no apparent distress, Oriented x3 HEENT: Sclerae nonicteric Respiratory: Other (non-labored on RA) Cardiovascular: No edema, Regular rate/rhythm Gastrointestinal: Soft and benign, No tenderness Musculoskeletal: No tenderness Integumentary: No rashes, No significant lesion Neurological: Normal speech, Normal affect Laboratory Data at Discharge: WBC 4.5 K/uL (4.3-10.9) D 11/04/20 04:52 Hgb 11.3 g/dL (12.0-15.0) L 11/04/20 04:52 Hct 33.0 % (36.0-45.0) L 11/04/20 04:52 Plt Count 237 K/uL (152-406) 11/04/20 04:52 PT 11.7 SECONDS (9.5-12.5) 11/03/20 09:45 INR 0.99 11/03/20 09:45 Sodium 132 mmol/L (136-145) L 11/05/20 04:56 Potassium 4.2 mmol/L (3.5-5.1) 11/05/20 04:56 BUN 37 mg/dL (7-18) H 11/05/20 04:56 Creatinine 1.37 mg/dL (0.55-1.3) H 11/05/20 04:56 Glucose 181 mg/dL (74-106) H 11/05/20 04:56 Phosphorus 2.3 mg/dL (2.5-4.9) L 11/05/20 04:56 Magnesium 2.0 mg/dL (1.8-2.4) 11/05/20 04:56 Total Bilirubin 0.5 mg/dL (0.2-1.0) 11/04/20 04:52 AST 43 U/L (15-37) H 11/04/20 04:52 ALT 39 U/L (12-78) 11/04/20 04:52 Alkaline Phosphatase 99 U/L (45-117) 11/04/20 04:52 Home Medications: Calcitrol [Rocaltrol*] 1 cap PO DAILY 04/13/19 Calcium Carbonate 650 mg PO DAILY 04/13/19 Cyclosporine [Restasis] 1 drop EACH EYE BID 04/13/19 Famotidine [Pepcid*] 20 mg PO BIDAC 04/13/19 Glipizide [Glipizide ER] 1 tab PO DAILY 04/13/19 Metoprolol Succinate [Toprol Xl*] 75 mg PO BID 04/13/19 Mycophenolate Sodium [Myfortic] 1 tab PO BID 04/13/19 Omeprazole 1 cap PO BREAKFAST 04/13/19 Pravastatin Sodium 10 mg PO BEDTIME 04/13/19 Spironolactone 25 mg PO DAILY 04/13/19 cycloSPORINE [Sandimmune] 50 mg PO BID 04/13/19 predniSONE [Prednisone] 5 mg PO DAILY 04/13/19 Aspirin [Aspirin EC 81 MG] 81 mg PO DAILY 30 Days #30 tablet. 11/05/20 predniSONE [Deltasone] 20 mg PO SEECOM 14 Days #21 tab 11/05/20 New Medications: Aspirin [Aspirin EC 81 MG] 81 mg PO DAILY 30 Days #30 tablet. predniSONE [Deltasone] 20 mg PO SEECOM 14 Days #21 tab Patient Discharge Instructions: follow up with PCP within 1 week. COVID-19 pneumonia - prescribed prednisone 20mg twice a day for 7 days, then once a day for 7 days. Take a baby aspirin (81mg) once a day for at least 1 month. You can follow up with Dr. Alvarez (pulmonary) in ~1 week - call his office to schedule an appointment. You were dehydrated, likely due to COVID-19 and diarrhea. Please make sure you are adequately hydrated / drinking plenty of fluids. Diet: ADA Activity: Ad max Followup: Choco Alvarez MD [ACTIVE - CAN ADMIT] - Unknown,U [Primary Care Provider] - Time spent managing pt's care (in minutes): 40
[2020-11-05 15:29] VITALS: BP 170/99; TEMP 97.3
--- NOTE | 2020-11-05 21:17 | P.PN ---
Date of Service: 11/05/20 Vital Signs Temp Pulse Resp BP Pulse Ox 97.3 F 116 H 19 170/99 H 98 11/05/20 12:00 11/05/20 14:00 11/05/20 14:00 11/05/20 14:00 11/05/20 13:00 Microbiology Results 11/03/20 09:30 Blood - Blood Aerobic Blood Culture - Preliminary No growth in 24 hours. 11/03/20 09:30 Blood - Blood Anaerobic Blood Culture - Preliminary No growth in 24 hours. 11/03/20 08:45 Blood - Blood Aerobic Blood Culture - Preliminary No growth in 24 hours. 11/03/20 08:45 Blood - Blood Anaerobic Blood Culture - Preliminary No growth in 24 hours. 11/03/20 09:41 Nasopharnyx Influenza Type A Antigen Screen - Final 11/03/20 09:41 Nasopharnyx Influenza Type B Antigen Screen - Final Assessment/ Plan: Nephrology CPS stable without CP or SOB. +RIVERA Feeling better today. No acute events overnight. Vitals, medications, blood work and imaging reviewed in the chart. General: In no apparent distress, Oriented x3, Cooperative HEENT: Atraumatic Neck: Supple Respiratory: Clear to auscultation bilaterally Cardiovascular: No edema, Regular rate/rhythm Gastrointestinal: Non-distended, Tenderness Musculoskeletal: No clubbing, No contractures Integumentary: No rashes, No cyanosis Neurological: Normal speech Blood work reviewed in the chart. Imagings Data: EXAM DESCRIPTION: hEsan Single View11/03/2020 10:25 am CLINICAL HISTORY: Cough COMPARISON: 2019 FINDINGS: Right lung mildly hazy Left lung appears clear Heart is borderline enlarged IMPRESSION: Right lung mildly hazy probably a mild pneumonia Conclusions/Impression: A/ CANDIE may be due to hypovolemia. Hyponatremia. Acidosis. Hypocalcemia. CKD III. Renal transplant status. Immunosuppression status. Anemia in chronic illness. COVID-19 PNA with dyspnea and diarrhea. P/ Continue current POC and Medications. Continue IVF. Continue immunosuppressive therapy. COVID Protocol/ Oxygen supplementation. No NSAIDs. AM labs prn. Daily weight. Case reviewed with Dr. Bowens. Possible discharge today.
== END 2020-11-05 14:45 | disposition home or self-care (01) | DRG 177 ==
LOC: ER 08:49 → ERHOLD 12:54 → 3RD-ICU 19:39 → OBSVTOIN 11-04 14:00
PROVIDERS: ADMIT Hospitalist; ATTEND Hospitalist
DX: U07.1 COVID-19 (principal); J12.89 Other viral pneumonia; N18.6 End stage renal disease; Z94.0 Kidney transplant status; E87.1 Hypo-osmolality and hyponatremia; I12.0 Hypertensive chronic kidney disease with stage 5 chronic kidney disease or end stage renal disease; N17.9 Acute kidney failure, unspecified; E87.8 Other disorders of electrolyte and fluid balance, not elsewhere classified; E78.5 Hyperlipidemia, unspecified; E83.51 Hypocalcemia; D63.8 Anemia in other chronic diseases classified elsewhere; K21.9 Gastro-esophageal reflux disease without esophagitis; Z88.5 Allergy status to narcotic agent; Z88.8 Allergy status to other drugs, medicaments and biological substances; Z91.048 Other nonmedicinal substance allergy status; Z79.84 Long term (current) use of oral hypoglycemic drugs; Z79.52 Long term (current) use of systemic steroids; Z79.899 Other long term (current) drug therapy; Z96.643 Presence of artificial hip joint, bilateral; Z79.82 Long term (current) use of aspirin
CPT/HCPCS: 36415; 71045; 80048; 80053; 80069; 80076; 81003; 81015; 82570; 82728; 82947; 83735; 83880; 84145; 84300; 84484; 85025; 85610; 86140; 87040; 87324; 87449; 87804; 94760; 96365; 96375; 99285; J0456; J0696; J1940; J2920; J7030; J7050; J7512; U0003

== ENCOUNTER 2023-10-27 14:12 | Inpatient (IN) | payer OTHER ==
--- OUTSIDE RECORDS SUMMARY | 2023-10-27 15:06 | XMS REPORT | Continuity of Care Document ---
:1955 Author Organization [facility] [place] t Address [address] [facility] [address] [place] [address] Care Team Providers Name Role Phone SIMONE BILL Primary Care Physician Unavailable FAMILIA NAVA Attending Clinician Unavailable SHEREE BHAKTA Attending Clinician Unavailable SIMONE BILL Attending Clinician Unavailable JESSY LEMON Attending Clinician Unavailable ISIDRO PURDY Attending Clinician Unavailable Indra RAMOS, Isidro Steele Attending Clinician Doctor Unassigned, Wright Attending Clinician Unavailable PINA DOTY Attending Clinician Unavailable ANEL GOLDEN Attending Clinician Unavailable Anel Arambula S Attending Clinician Gianfranco RAMOS, Chante Attending Clinician Simone Fraire Attending Clinician Sheree Bhakta MD Attending Clinician [phone] KRISTEN LIANG Attending Clinician Unavailable KRISTEN LIANG Attending Clinician Unavailable Lab, Ang - Db Attending Clinician Unavailable Vicki Mcnally MD Attending Clinician VICKI MCNALLY Attending Clinician Unavailable ARYAN PRICE Attending Clinician Unavailable Kristen Liang DO Attending Clinician Llaitha RAMOS, Pina K.H. Attending Clinician Albert RAMOS, Aryan Aguila Attending Clinician 1, [facility] Infusion Nurse Attending Clinician Unavailable LUL GARCIA Attending Clinician Unavailable Lul Garcia OD Attending Clinician Familia Nava MD Attending Clinician Ynes Tyler LVN Attending Clinician Unavailable Yee Hernandez MA Attending Clinician Unavailable CHANTE MEDEL Attending Clinician Unavailable Amarilis Gallagher LVN Attending Clinician Unavailable LICHA LEVI Attending Clinician Unavailable Licha Levi MD Attending Clinician BEV Attending Clinician Unavailable Viktor RAMOS, Dodie Aguila Attending Clinician Testing, [facility] Pulmonary Function Attending Clinician UnavailNOREEN Larson Attending Clinician Unavailable DODIE HOANG Attending Clinician Unavailable Coral Kessler RN Attending Clinician Unavailable SHIKHA GIBBONS Attending Clinician Unavailable [place] Hodge MD Attending Clinician Shikha Gibbons MD Attending Clinician [phone] Shaunna Pablo MD Attending Clinician BRENDA LE Attending Clinician Unavailable Brenda Le MD Attending Clinician Nurse, Gurwinder Harden Attending Clinician Unavailable 2, [facility] Attending Clinician Unavailable BRENDA RABAGO Attending Clinician Unavailable Brenda Rabago MD Attending Clinician Eduard Rubio MD Attending Clinician JACQUELINE IRIZARRY Attending Clinician Unavailable David Vogel PA-C Attending Clinician Lab, [facility] Fam Pob I Attending Clinician Unavailable Brenda Richter MD Attending Clinician BRENDA RICHTER Attending Clinician Unavailable Pcp-Lab Attending Clinician Unavailable Vicenta Skelton MD Attending Clinician EDUARD RUBIO Attending Clinician Unavailable Marino RAMOS, Addy Olea Attending Clinician JONATHAN LOWE Attending Clinician Unavailable Nurse, [facility] Fam Pob I Attending Clinician Unavailable DAVID VOGEL Attending Clinician Unavailable LISETH LUNSFORD Attending Clinician Unavailable Aviva uF Attending Clinician ORTEGA LEE Attending Clinician Unavailable Wm RAMOS, Vicki Sandoval Attending Clinician Ortega Lee MD Attending Clinician Kenisha RAMOS, Iveth De Leon Attending Clinician IVETH ART Attending Clinician Unavailable Jerald Baig Attending Clinician Unavailable Nurse, Transplant Attending Clinician Unavailable Tony RAMOS, Nathan Attending Clinician Pelon Tucker MD Attending Clinician Tiffanie Espana Attending Clinician Jacqueline Irizarry MD Attending Clinician Vtc-Lab Attending Clinician Unavailable Potrisha, Adwoa Lab Main Attending Clinician Unavailable DICK OKEEFE Attending Clinician Unavailable SIMONE BILL Admitting Clinician Unavailable KRISTEN LIANG Admitting Clinician Unavailable BEV Admitting Clinician Unavailable FAMILIA NAVA Admitting Clinician Unavailable SHAUNNA PABLO Admitting Clinician Unavailable Shaunna Pablo MD Admitting Clinician KEN MORELOS Admitting Clinician Unavailable BRENDA LE Admitting Clinician Unavailable Payers Payer Name Policy Type Policy Number Effective Date Expiration Date Cedric seanyoana AMAN/CHALINO [id number] 2021 MEDICARE ADVANTAGE 00:00:00 [facility] [id number] 2016 CHOICE 00:00:00 Problems Condition Condition Condition Status Onset Resolution Last Treating Co mments Source Name Details Category Date Date Treatment Clinician Date Recurrent Recurrent Disease Active Uni vers acute acute 5-12 [place] suppurativ [place] e [place] 00 Medica l media media Branch without without spontaneou spontaneou s rupture s rupture of left of left tympanic tympanic membrane membrane Subacute Subacute Disease Active Unive rs cough cough 3-07 ity of 00:00: [place] 00 Medical Branch SOB SOB Disease Active Univers (shortness (shortness 3-07 it y of of breath) of breath) [place] [facility] Oral Oral Disease Active Univers thrush thrush 8-26 ity of 00:00: [place] 00 Medical Branch Chest pain Chest pain Disease Active U nivers 3-05 ity of 00:00: [place] 00 Medical Branch History of History of Disease Active 2019-11 U nivers 2018 novel 2018 novel 2- it y of coronaviru coronaviru [place] s disease s disease 00 Medi leeann (COVID-19) (COVID-19) Br anch Calculus Calculus Disease Active Overview: Un aleksandr of bile of bile 1-27 Formattin ity o f duct duct 00:00: g of this [place] without without 00 note Medical cholecysti cholecysti might be Branch tis and tis and different without without from the obstructio obstructio original. n n Added automatic ally from request for surgery [id number] Dysuria Dysuria Disease Active 2018-11 Univers 2-22 ity of 00:00: [place] 00 Medical Branch UTI UTI Disease Active 2018-11 Univers (urinary (urinary 2-22 ity of tract tract 00:00: [place] infection) infection) 00 Me dical Branch Nausea & Nausea & Disease Active Unive rs vomiting vomiting 5-23 ity of 00:00: [place] 00 Medical Branch Urinary Urinary Disease Active Univers tract tract 3-08 ity of infection infection 00:[place] Closed Closed Disease Active 2017-11 Univers right hip right hip 0-26 ity of fracture fracture 00:00: [place] 00 Medical Branch Closed Closed Disease Active 2017-11 Overview: Univer s fracture fracture 0-25 Formattin ity of of right of right 00:00: g of this [place] as hip, hip, 00 note Medical initial initial might be Branch encounter encounter different from the original. Added automatic ally from request for surgery [id number] Situationa Situationa Disease Active U nivers l mixed l mixed 7-30 ity of anxiety anxiety 00:00: [place] and and 00 Medical depressive depressive Br anch disorder disorder Fracture Fracture Disease Active Unive rs of femoral of femoral 7-13 it y of neck, neck, 00:00: [place] left, left, 00 Medical closed closed Branch Obesity Obesity Disease Active Univers (BMI (BMI 7-13 ity of 30-39.9) 30-39.9) 00:00: [place] 00 Medical Branch Closed Closed Disease Active Overview: Univer s fracture fracture 12 Formattin ity of of neck of of neck of 00:00: g of this [place] femur femur 00 note Medical might be Branch different from the original. Bilateral Osteoporos Osteoporos Disease Active U nivers is, is, 05-28 ity of unspecifie unspecifie 00:[place] d d 00 Medical osteoporos osteoporos Br anch is type, is type, unspecifie unspecifie d d pathologic pathologic al al fracture fracture presence presence [facility] Disease Active Uni vers (current) (current) 6-19 ity of use of use of 00:00: [place] systemic systemic 00 Medica l steroids steroids Branch Immunizati Immunizati Disease Active U nivers on on 04-14 ity of counseling counseling 00:[place]: [place] [facility] PMR PMR Disease Active Univers (polymyalg (polymyalg 04-14 it y of ia ia 00:00: [place] rheumatica rheumatica 00 Me dical ) ) Branch Low back Low back Disease Active Unive rs pain pain - ity of without without 00:00: [place] sciatica, sciatica, 00 Medi leeann unspecifie unspecifie Br anch d back d back pain pain laterality laterality , , unspecifie unspecifie d d chronicity chronicity Renal cyst Renal cyst Disease Active Overview : Univers 4-30 Formattin ity of 00:00: g of this [place] 00 note Medical might be Branch different from the original. 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, cataracts, 06-19 it y of bilateral bilateral 00:[place] Dry eye Dry eye Disease Active Univers syndrome, syndrome, 06-19 ity of bilateral bilateral 00:[place] Refractive Refractive Disease Active U nivers error error 06-19 ity of 00:00: [place] 00 Medical Branch Positive Positive Disease Active Unive rs DUDLEY DUDLEY 2-16 ity of (antinucle (antinucle 00:00: [place] ar ar 00 Medical antibody) antibody) Bran ch 1:80 1:80 Atypical Atypical Disease Active Unive rs rash rash 2-16 ity of 00:00: [place] 00 Medical Branch Screening Screening Disease Active 2015-11 Uni vers for colon for colon 1-17 ity of cancer cancer 00:00: [place] 00 Medical Branch Need for Need for Disease Active 2015-11 Unive rs Tdap Tdap 1-17 ity of vaccinatio vaccinatio 00:00: [place] n n 00 Medical Branch Essential Essential Disease Active Overview: Univers hypertensi hypertensi 6-24 Formattin ity of on on 00:00: g of this [place] 00 note Medical might be Branch different from the original. 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 Kidney Kidney Disease Active 2010-11 Univers replaced replaced 0-28 ity of by by 00:00: [place] transplant transplant 00 Me dical Branch Renal Renal Disease Active Univers transplant transplant 6-30 it y of 00:00: [place] 00 Medical Branch Cholelithi Cholelithi Disease Active U renettaers asis asis 4-15 ity of 00:00: Medical Branch GERD GERD Disease Active Univers (gastroeso (gastroeso 4-15 it y of phageal phageal 00:00: [place] reflux reflux 00 Medical disease) disease) Branch History of History of Disease Active U nivers end stage end stage 5-25 ity of renal renal 00:00: [place] disease disease 00 Medical Branch Generalize Generalize Disease Active U nivers d d 09 ity of osteoarthr osteoarthr 00:00: [place] osis, osis, 00 Medical unspecifie unspecifie Br anch d site d site Hyperparat Hyperparat Disease Active U nivers hyroidism hyroidism 09 ity of 00:00: [place] [facility] Allergies, Adverse Reactions, Alerts Allergy Allergy Status Severity Reaction(s) Onset Inactive Treating Comm ents Source Name Type Date Date Clinician Iodine Propensi Active Nausea Univers And ty to and/or 5-31 ity of Iodide adverse Vomiting 00:00: [place] Containi reaction 00 Medica l s Branch Products IODINE Drug Active N/V Univers AND Class 5-31 ity of IODIDE 00:00: [place] CONTAINI 00 Medical Branch PRODUCTS Sirolimu Propensi Active Rash 2019- Univer s s (Bulk) ty to 3-14 ity of adverse 00:00: [place] reaction 00 Medical s Branch SIROLIMU DRUG Active Rash 2019- Univers S (BULK) 3-14 ity of 00:00: [place] 00 Medical Branch Adhesive Propensi Active Rash 2019- Univer s Tape-Diana ty to 3-08 ity of icones adverse 00:00: [place] reaction 00 Medical s Branch Codeine Propensi Active Nausea 2019-0 Univers ty to and/or 3-08 ity of adverse Vomiting 00:00: [place] reaction 00 Medical s Branch ADHESIVE DRUG Active High Rash 2019-0 Univers TAPE-DIANA 3-08 ity of ICONES 00:00: [place] 00 Medical Branch CODEINE DRUG Active High N/V 2019-0 Univers INGREDI 3-08 ity of 00:00: [place] 00 Medical Branch Social History Social Habit Start Date Stop Date Quantity Comments Source Gender identity [facility] [place] Sexual orientation [facility] [place] Alcohol intake 2023-09-16 2023-09-16 0 /d University of 00:00:00 00:00:00 [place] [facility] Exposure to 2023-03-24 2023-04-03 Not sure [facility] SARS-CoV-2 (event) 00:00:00 07:41:00 [place] [facility] History SDOH Social 2023-04-03 2023-04-03 4 Unive rsity of Connections Phone 00:00:00 00:00:00 [place] M edical Branch History SDOH Social 2023-04-03 2023-04-03 3 Unive rsity of Connections Get 00:00:00 00:00:00 [place] Med ical Together Branch History SDOH Social 2023-04-03 2023-04-03 2 Unive rsity of Connections Adventism 00:00:00 00:00:00 [place] [facility] History SDOH Social 2023-04-03 2023-04-03 2 Unive rsity of Connections 00:00:00 00:00:00 [place] [facility] Membership Branch History SDOH Social 2023-04-03 2023-04-03 1 Unive rsity of Connections 00:00:00 00:00:00 [place] [facility] Meetings Branch History SDOH Social 2023-04-03 2023-04-03 3 Unive rsity of Connections Living 00:00:00 00:00:00 [place] [facility] History SDOH 2023-04-03 2023-04-03 0 University o f Physical Activity 00:00:00 00:00:00 [place] [facility]ical DPW Branch History SDOH 2023-04-03 2023-04-03 1 University o f Physical Activity 00:00:00 00:00:00 [place] [facility] MPS Branch History SDOH Stress 2023-04-03 2023-04-03 3 Unive rsity of 00:00:00 00:00:00 [place] [facility] History SDOH 2023-04-03 2023-04-03 5 University o f Financial 00:00:00 00:00:00 [place] [facility] History SDOH Food 2023-04-03 2023-04-03 1 Univers ity of Worry 00:00:00 00:00:00 [place] [facility] History SDOH Food 2023-04-03 2023-04-03 1 Univers ity of Scarcity 00:00:00 00:00:00 [place] [facility] History SDOH 2023-04-03 2023-04-03 2 University o f Transport Med 00:00:00 00:00:00 [place] Medic al Branch History SDOH 2023-04-03 2023-04-03 2 University o f Transport Non-Med 00:00:00 00:00:00 [place] M edical Branch History SDOH 2023-04-03 2023-04-03 2 University o f Housing Unable to 00:00:00 00:00:00 [place] [facility] Pay Branch History SDOK 2023-04-03 2023-04-03 1 University o f Housing Places 00:00:00 00:00:00 [place] Medi leeann Lived Branch History SDOK 2023-04-03 2023-04-03 2 University o f Housing Homeless 00:00:00 00:00:00 [place] Me dical Last Year Branch History SDOK 2023-04-03 2023-04-03 1 University o f Alcohol Frequency 00:00:00 00:00:00 [place] [facility] Branch History SDOK 2023-04-03 2023-04-03 0 University o f Alcohol Std Drinks 00:00:00 00:00:00 [place] [facility] History SDOK 2023-04-03 2023-04-03 1 University o f Alcohol Binge 00:00:00 00:00:00 [place] [facility] al [facility] History of Social 2023-02-18 2023-02-18 Univers ity of function 00:00:00 00:00:00 [facility] Branch Tobacco use and 2022-09-16 2022-09-16 Smokeless Universit y of exposure 00:00:00 00:00:00 tobacco non-user [place] Me dical Branch Alcohol Comment 2010-04-02 2010-04-02 never Universit y of 00:00:00 00:00:00 [facility] [birth year] Universit y of 00:00:00 00:00:00 [facility] Smoking Status Start Date Stop Date Source Never smoked tobacco [facility] Medications Ordered Filled Start Stop Current Ordering Indication Dosage Frequency Signature Comments Components Source Medication Medication Date Date Medication? Clinician (SIG) Name Name bonita MILLER 2022-11 Yes [id number] 1{tbl} TAKE 1 Univers 72-iron-fol 0-31 TABLET BY ity of ic acid 00:00: MOUTH [place] ( Medical PLUS) 27 mg MORNING Branc h iron- 1 mg tablet glipiZIDE 2022-11 Yes [id number] 10mg Take 1 Un aleksandr 10 mg 0-31 tablet by ity of tablet 00:00: mouth [place] ([facility]) Medical times [place] daily before breakfast and dinner. PAULcalcium 2022-11 Yes [id number] 1{tbl} TAKE 1 Univers 72-iron-fol 0-31 TABLET BY ity of ic acid 00:00: MOUTH [place] ( Medical PLUS) 27 mg MORNING Branc h iron- 1 mg tablet glipiZIDE 2022-11 Yes [id number] 10mg Take 1 Un aleksandr 10 mg 0-31 tablet by ity of tablet 00:00: mouth [place] ([facility]) Medical times [place] daily before breakfast and dinner. PAULcalcium 2022-11 Yes [id number] 1{tbl} TAKE 1 Univers 72-iron-fol 0-31 TABLET BY ity of ic acid 00:00: MOUTH [place] ( Medical PLUS) 27 mg MORNING Branc h iron- 1 mg tablet glipiZIDE 2022-11 Yes [id number] 10mg Take 1 Un aleksandr 10 mg 0-31 tablet by ity of tablet 00:00: mouth [place] ([facility]) Medical times [place] daily before breakfast and dinner. PAULcalcium 2022-11 Yes [id number] 1{tbl} TAKE 1 Univers 72-iron-fol 0-31 TABLET BY ity of ic acid 00:00: MOUTH [place] ( Medical PLUS) 27 mg MORNING Branc h iron- 1 mg tablet glipiZIDE 2022-11 Yes [id number] 10mg Take 1 Un aleksandr 10 mg 0-31 tablet by ity of tablet 00:00: mouth [place] ([facility]) Medical times [place] daily before breakfast and dinner. PNV,calcium 2022-11 Yes [id number] 1{tbl} TAKE 1 Univers 72-iron-fol 0-31 TABLET BY ity of ic acid 00:00: MOUTH [place] ( Medical PLUS) 27 mg MORNING Branc h iron- 1 mg tablet glipiZIDE 2022-11 Yes [id number] 10mg Take 1 Un aleksandr 10 mg 0-31 tablet by ity of tablet 00:00: mouth (two) Medical times Branch daily before breakfast and dinner. PNV,calcium 2022-11 Yes [id number] 1{tbl} TAKE 1 Univers 72-iron-fol 0-31 TABLET BY ity of ic acid 00:00: MOUTH ( Medical PLUS) 27 mg MORNING Branc h iron- 1 mg tablet glipiZIDE 2022-11 Yes [id number] 10mg Take 1 Un aleksandr 10 mg 0-31 tablet by ity of tablet 00:00: mouth (two) Medical times Branch daily before breakfast and dinner. PNV,calcium 2022-11 Yes [id number] 1{tbl} TAKE 1 Univers 72-iron-fol 0-31 TABLET BY ity of ic acid 00:00: MOUTH ( Medical PLUS) 27 mg MORNING Branc h iron- 1 mg tablet glipiZIDE 2022-11 Yes [id number] 10mg Take 1 Un aleksandr 10 mg 0-31 tablet by ity of tablet 00:00: mouth (two) Medical times Branch daily before breakfast and dinner. PNV,calcium 2022-11 Yes [id number] 1{tbl} TAKE 1 Univers 72-iron-fol 0-31 TABLET BY ity of ic acid 00:00: MOUTH ( Medical PLUS) 27 mg MORNING Branc h iron- 1 mg tablet glipiZIDE 2022-11 Yes [id number] 10mg Take 1 Un aleksandr 10 mg 0-31 tablet by ity of tablet 00:00: mouth 2 (two) Medical times Branch daily before breakfast and dinner. PNV,calcium 2022-11 Yes [id number] 1{tbl} TAKE 1 Univers 72-iron-fol 0-31 TABLET BY ity of ic acid 00:00: MOUTH [place] ( Medical PLUS) 27 mg MORNING Branc h iron- 1 mg tablet glipiZIDE 2022-11 Yes [id number] 10mg Take 1 Un aleksandr 10 mg 0-31 tablet by ity of tablet 00:00: mouth () Medical times Branch daily before breakfast and dinner. PNV,calcium 2022-11 Yes [id number] 1{tbl} TAKE 1 Univers 72-iron-fol 0-31 TABLET BY ity of ic acid 00:00: MOUTH ( Medical PLUS) 27 mg MORNING Branc h iron- 1 mg tablet glipiZIDE 2022-11 Yes [id number] 10mg Take 1 Un aleksandr 10 mg 0-31 tablet by ity of tablet 00:00: mouth () Medical times Branch daily before breakfast and dinner. PNV,calcium 2022-11 Yes [id number] 1{tbl} TAKE 1 Univers 72-iron-fol 0-31 TABLET BY ity of ic acid 00:00: MOUTH ( PLUS) 27 mg MORNING Branc h iron- 1 mg tablet glipiZIDE 2022-11 Yes [id number] 10mg Take 1 Un aleksandr 10 mg 0-31 tablet by ity of tablet 00:00: mouth () Medical times Branch daily before breakfast and dinner. PNV,calcium 2022-11 Yes [id number] 1{tbl} TAKE 1 Univers 72-iron-fol 0-31 TABLET BY ity of ic acid 00:00: MOUTH () 27 mg MORNING Branc h iron- 1 mg tablet glipiZIDE 2022-11 Yes [id number] 10mg Take 1 Un aleksandr 10 mg 0-31 tablet by ity of tablet 00:00: mouth () Medical times Branch daily before breakfast and dinner. PNV,calcium 2022-11 Yes [id number] 1{tbl} TAKE 1 Univers 72-iron-fol 0-31 TABLET BY ity of ic acid 00:00: MOUTH ( Medical PLUS) 27 mg MORNING Branc h iron- 1 mg tablet glipiZIDE 2022-11 Yes [id number] 10mg Take 1 Un aleksandr 10 mg 0-31 tablet by ity of tablet 00:00: mouth (two) Medical times Branch daily before breakfast and dinner. PNV,calcium 2022-11 Yes [id number] 1{tbl} TAKE 1 Univers 72-iron-fol 0-31 TABLET BY ity of ic acid 00:00: MOUTH ([place] EVERY Medical PLUS) 27 mg MORNING Branc h iron- 1 mg tablet glipiZIDE 2022-11 Yes [id number] 10mg Take 1 Un aleksandr 10 mg 0-31 tablet by ity of tablet 00:00: mouth 2 (two) Medical times Branch daily before breakfast and dinner. glipiZIDE 2022-11 Yes [id number] Pt to take Univers XL 2.5 mg 0-27 7.5mg ity of 24 hr 00:00: daily, 5mg [place] tablet 00 tab plus Medical 2.5mg tab Branch glipiZIDE 2022-11 Yes [id number] Pt to take Univers XL 2.5 mg 0-27 7.5mg ity of 24 hr 00:00: daily, 5mg [place] tablet 00 tab plus Medical 2.5mg tab Branch OMEPRAZOLE 2022-11 Yes [id number] 20mg TAKE 1 Univers 20 mg 0-27 CAPSULE BY ity of capsule 00:00: MOUTH DAILY Medical Branch OMEPRAZOLE 2022-11 Yes [id number] 20mg TAKE 1 Univers 20 mg 0-27 CAPSULE BY ity of capsule 00:00: MOUTH DAILY Medical Branch glipiZIDE 2022-11 Yes [id number] Pt to take Univers XL 2.5 mg 0-27 7.5mg ity of 24 hr 00:00: daily, 5mg [place] tablet 00 tab plus Medical 2.5mg tab Branch OMEPRAZOLE 2022-11 Yes [id number] 20mg TAKE 1 Univers 20 mg 0-27 CAPSULE BY ity of capsule 00:00: MOUTH DAILY Medical Branch glipiZIDE 2022-11 Yes [id number] Pt to take Univers XL 2.5 mg 0-27 7.5mg ity of 24 hr 00:00: daily, 5mg [place] tablet 00 tab plus Medical 2.5mg tab Branch OMEPRAZOLE 2022-11 Yes [id number] 20mg TAKE 1 Univers 20 mg 0-27 CAPSULE BY ity of capsule 00:00: MOUTH DAILY Medical Branch glipiZIDE 2022-11 Yes [id number] Pt to take Univers XL 2.5 mg 0-27 7.5mg ity of 24 hr 00:00: daily, 5mg [place] tablet 00 tab plus Medical 2.5mg tab Branch OMEPRAZOLE 3- Yes [id number] 20mg TAKE 1 Univers 20 mg 0-27 CAPSULE BY ity of capsule 00:00: MOUTH [place] DAILY Medical Branch glipiZIDE 2022- Yes [id number] Pt to take Univers XL 2.5 mg 0-27 7.5mg ity of 24 hr 00:00: daily, 5mg [place] tablet 00 tab plus Medical 2.5mg tab Branch OMEPRAZOLE 2022- Yes [id number] 20mg TAKE 1 Univers 20 mg 0-27 CAPSULE BY ity of capsule 00:00: MOUTH [place] DAILY Medical Branch OMEPRAZOLE 2022- Yes [id number] 20mg TAKE 1 Univers 20 mg 0-27 CAPSULE BY ity of capsule 00:00: [facility] DAILY Medical Branch OMEPRAZOLE 2022- Yes [id number] 20mg TAKE 1 Univers 20 mg 0-27 CAPSULE BY ity of capsule 00:00: [facility] DAILY Medical Branch OMEPRAZOLE 3-1 Yes [id number] 20mg TAKE 1 Univers 20 mg 0-27 CAPSULE BY ity of capsule 00:00: MOUTH [place] DAILY Medical Branch OMEPRAZOLE 3-1 Yes [id number] 20mg TAKE 1 Univers 20 mg 0-27 CAPSULE BY ity of capsule 00:00: [facility] DAILY Medical Branch OMEPRAZOLE 3-1 Yes [id number] 20mg TAKE 1 Univers 20 mg 0-27 CAPSULE BY ity of capsule 00:00: [facility] DAILY Medical Branch OMEPRAZOLE 2023-1 Yes [id number] 20mg TAKE 1 Univers 20 mg 0-27 CAPSULE BY ity of capsule 00:00: MOUTH [place] DAILY Medical Branch OMEPRAZOLE 3-1 Yes [id number] 20mg TAKE 1 Univers 20 mg 0-27 CAPSULE BY ity of capsule 00:00: [facility] DAILY Medical Branch OMEPRAZOLE 3-1 Yes [id number] 20mg TAKE 1 Univers 20 mg 0-27 CAPSULE BY ity of capsule 00:00: [facility] DAILY Medical Branch OMEPRAZOLE 3-1 Yes [id number] 20mg TAKE 1 Univers 20 mg 0-27 CAPSULE BY ity of capsule 00:00: [facility] DAILY Medical Branch OMEPRAZOLE 2022-11 Yes [id number] 20mg TAKE 1 Univers 20 mg 0-27 CAPSULE BY ity of capsule 00:00: MOUTH 00 DAILY Medical Branch OMEPRAZOLE 2022-11 Yes [id number] 20mg TAKE 1 Univers 20 mg 0-27 CAPSULE BY ity of capsule 00:00: MOUTH DAILY Medical Branch OMEPRAZOLE 2022-11 Yes [id number] 20mg TAKE 1 Univers 20 mg 0-27 CAPSULE BY ity of capsule 00:00: MOUTH [place] DAILY Medical Branch OMEPRAZOLE 2022-11 Yes [id number] 20mg TAKE 1 [facility] 20 mg 0-27 CAPSULE BY ity of capsule 00:00: MOUTH [place] DAILY Medical Branch glipiZIDE 2022-11- No [id number] Pt to take [facility] XL 2.5 mg 0-27 10-31 7.5mg ity of 24 hr 00:00: 00:00 daily, 5mg [place] tablet 00 :00 tab plus Medical 2.5mg tab Branch MONTELUKAST 2022-11 Yes [id number] 10mg TAKE 1 [facility] 10 mg 0-23 TABLET BY ity of tablet 00:00: MOUTH 00 EVERY Medical EVENING Branch MONTELUKAST 2022-11 Yes [id number] 10mg TAKE 1 [facility] 10 mg 0-23 TABLET BY ity of tablet 00:00: MOUTH [place] EVERY Medical EVENING Branch MONTELUKAST 2022-11 Yes [id number] 10mg TAKE 1 [facility] 10 mg 0-23 TABLET BY ity of tablet 00:00: MOUTH EVERY Medical EVENING Branch MONTELUKAST 2022-11 Yes [id number] 10mg TAKE 1 [facility] 10 mg 0-23 TABLET BY ity of tablet 00:00: MOUTH 00 EVERY Medical EVENING Branch MONTELUKAST 2022-11 Yes [id number] 10mg TAKE 1 [facility] 10 mg 0-23 TABLET BY ity of tablet 00:00: MOUTH [place] EVERY Medical EVENING Branch MONTELUKAST 2022-11 Yes [id number] 10mg TAKE 1 [facility] 10 mg 0-23 TABLET BY ity of tablet 00:00: MOUTH [place] EVERY Medical EVENING Branch MONTELUKAST 2022-11 Yes [id number] 10mg TAKE 1 [facility] 10 mg 0-23 TABLET BY ity of tablet 00:00: MOUTH [place] EVERY Medical EVENING Branch MONTELUKAST 2022-11 Yes [id number] 10mg TAKE 1 [facility] 10 mg 0-23 TABLET BY ity of tablet 00:00: MOUTH [place] 00 EVERY Medical EVENING Branch [facility] 2022-11 Yes [id number] 10mg TAKE 1 [facility] 10 mg 0-23 TABLET BY ity of tablet 00:00: MOUTH [place] 00 EVERY Medical EVENING Branch [facility] 2022-11 Yes [id number] 10mg TAKE 1 [facility] 10 mg 0-23 TABLET BY ity of tablet 00:00: MOUTH [place] 00 EVERY Medical EVENING Branch [facility] 2022-11 Yes [id number] 10mg TAKE 1 [facility] 10 mg 0-23 TABLET BY ity of tablet 00:00: MOUTH [place] 00 EVERY Medical EVENING Branch [facility] 2022-11 Yes [id number] 10mg TAKE 1 [facility] 10 mg 0-23 TABLET BY ity of tablet 00:00: MOUTH [place] 00 EVERY Medical EVENING Branch [facility] 2022-11 Yes [id number] 10mg TAKE 1 [facility] 10 mg 0-23 TABLET BY ity of tablet 00:00: MOUTH [place] 00 EVERY Medical EVENING Branch [facility] 2022-11 Yes [id number] 10mg TAKE 1 [facility] 10 mg 0-23 TABLET BY ity of tablet 00:00: MOUTH [place] 00 EVERY Medical EVENING Branch [facility] 2022-11 Yes [id number] 10mg TAKE 1 [facility] 10 mg 0-23 TABLET BY ity of tablet 00:00: MOUTH [place] 00 EVERY Medical EVENING Branch [facility] 2022-11 Yes [id number] 10mg TAKE 1 [facility] 10 mg 0-23 TABLET BY ity of tablet 00:00: MOUTH [place] 00 EVERY Medical EVENING Branch [facility] 2022-11 Yes [id number] 10mg TAKE 1 [facility] 10 mg 0-23 TABLET BY ity of tablet 00:00: MOUTH [place] 00 EVERY Medical EVENING Branch [facility] 2022-11 Yes [id number] 10mg TAKE 1 [facility] 10 mg 0-23 TABLET BY ity of tablet 00:00: MOUTH [place] 00 EVERY Medical EVENING Branch [facility] 2022-11 Yes [id number] 10mg TAKE 1 [facility] 10 mg 0-23 TABLET BY ity of tablet 00:00: MOUTH [place] 00 EVERY Medical EVENING Branch [facility] 2022-11 Yes [id number] 10mg TAKE 1 [facility] 10 mg 0-23 TABLET BY ity of tablet 00:00: MOUTH [place] 00 EVERY Medical EVENING Branch MONTELUKAST 2022-11 Yes [id number] 10mg TAKE 1 [facility] 10 mg 0-23 TABLET BY ity of tablet 00:00: MOUTH [place] 00 EVERY Medical EVENING Branch MONTELUKAST 2022-11 Yes [id number] 10mg TAKE 1 [facility] 10 mg 0-23 TABLET BY ity of tablet 00:00: MOUTH [place] 00 EVERY Medical EVENING Branch MONTELUKAST 2022-11 Yes [id number] 10mg TAKE 1 [facility] 10 mg 0-23 TABLET BY ity of tablet 00:00: MOUTH [place] 00 EVERY Medical EVENING Branch MONTELUKAST 2022-11 Yes [id number] 10mg TAKE 1 [facility] 10 mg 0-23 TABLET BY ity of tablet 00:00: MOUTH [place] 00 EVERY Medical EVENING Branch MONTELUKAST 2022-11 Yes [id number] 10mg TAKE 1 [facility] 10 mg 0-23 TABLET BY ity of tablet 00:00: MOUTH [place] 00 EVERY Medical EVENING Branch MONTELUKAST 2022-11 Yes [id number] 10mg TAKE 1 [facility] 10 mg 0-23 TABLET BY ity of tablet 00:00: MOUTH [place] 00 EVERY Medical EVENING Branch MONTELUKAST 2022-11 Yes [id number] 10mg TAKE 1 [facility] 10 mg 0-23 TABLET BY ity of tablet 00:00: MOUTH [place] 00 EVERY Medical EVENING Branch MONTELUKAST 2022-11 Yes [id number] 10mg TAKE 1 [facility] 10 mg 0-23 TABLET BY ity of tablet 00:00: MOUTH [place] 00 EVERY Medical EVENING Branch FLUTICASONE Yes [id number] 1{puff} INHALE 1 [facility] PROPION-HAKAN 9-27 PUFF BY ity o f METEROL 00:00: MOUTH [place] 250-50 00 EVERY 12 Medical mcg/dose HOURS Branch inhalation disk FLUTICASONE Yes [id number] 1{puff} INHALE 1 [facility] PROPION-HAKAN 9-27 PUFF BY ity o f METEROL 00:00: MOUTH [place] 250-50 EVERY 12 Medical mcg/dose HOURS Branch inhalation disk FLUTICASONE Yes [id number] 1{puff} INHALE 1 [facility] PROPION-HAKAN 9-27 PUFF BY ity o f METEROL 00:00: MOUTH [place] 250-50 EVERY 12 Medical mcg/dose HOURS Branch inhalation disk FLUTICASONE Yes [id number] 1{puff} INHALE 1 [facility] PROPION-HAKAN 9-27 PUFF BY ity o f METEROL 00:00: MOUTH [place] 250-50 EVERY 12 Medical mcg/dose HOURS Branch inhalation disk FLUTICASONE 0 Yes [id number] 1{puff} INHALE 1 [facility] PROPION-HAKAN 9-27 PUFF BY ity o f METEROL 00:00: MOUTH [place] 250-50 EVERY 12 Medical mcg/dose HOURS Branch inhalation disk FLUTICASONE 0 Yes [id number] 1{puff} INHALE 1 [facility] PROPION-HAKAN 9-27 PUFF BY ity o f METEROL 00:00: MOUTH [place] 250-50 EVERY 12 Medical mcg/dose HOURS Branch inhalation disk FLUTICASONE 0 Yes [id number] 1{puff} INHALE 1 [facility] PROPION-HAKAN 9-27 PUFF BY ity o f METEROL 00:00: MOUTH [place] 250-50 EVERY 12 Medical mcg/dose HOURS Branch inhalation disk FLUTICASONE 0 Yes [id number] 1{puff} INHALE 1 [facility] PROPION-HAKAN 9-27 PUFF BY ity o f METEROL 00:00: MOUTH [place] 250-50 EVERY 12 Medical mcg/dose HOURS Branch inhalation disk FLUTICASONE 0 Yes [id number] 1{puff} INHALE 1 [facility] PROPION-HAKAN 9-27 PUFF BY ity o f METEROL 00:00: MOUTH [place] 250-50 EVERY 12 Medical mcg/dose HOURS Branch inhalation disk FLUTICASONE 0 Yes [id number] 1{puff} INHALE 1 [facility] PROPION-HAKAN 9-27 PUFF BY ity o f METEROL 00:00: MOUTH [place] 250-50 EVERY 12 Medical mcg/dose HOURS Branch inhalation disk FLUTICASONE 0 Yes [id number] 1{puff} INHALE 1 [facility] PROPION-HAKAN 9-27 PUFF BY ity o f METEROL 00:00: MOUTH [place] 250-50 EVERY 12 Medical mcg/dose HOURS Branch inhalation disk FLUTICASONE 0 Yes [id number] 1{puff} INHALE 1 [facility] PROPION-HAKAN 9-27 PUFF BY ity o f METEROL 00:00: MOUTH [place] 250-50 00 EVERY 12 Medical mcg/dose HOURS Branch inhalation disk FLUTICASONE 2022-0 Yes [id number] 1{puff} INHALE 1 [facility] PROPION-HAKAN 9-27 PUFF BY ity o f METEROL 00:00: MOUTH [place] 250-50 EVERY 12 Medical mcg/dose HOURS Branch inhalation disk FLUTICASONE 2022-0 Yes [id number] 1{puff} INHALE 1 [facility] PROPION-HAKAN 9-27 PUFF BY ity o f METEROL 00:00: MOUTH [place] 250-50 EVERY 12 Medical mcg/dose HOURS Branch inhalation disk FLUTICASONE 2022-0 Yes [id number] 1{puff} INHALE 1 [facility] PROPION-HAKAN 9-27 PUFF BY ity o f METEROL 00:00: MOUTH [place] 250-50 EVERY 12 Medical mcg/dose HOURS Branch inhalation disk FLUTICASONE 2022-0 Yes [id number] 1{puff} INHALE 1 [facility] PROPION-HAKAN 9-27 PUFF BY ity o f METEROL 00:00: MOUTH [place] 250-50 EVERY 12 Medical mcg/dose HOURS Branch inhalation disk FLUTICASONE 2022-0 Yes [id number] 1{puff} INHALE 1 [facility] PROPION-HAKAN 9-27 PUFF BY ity o f METEROL 00:00: MOUTH [place] 250-50 EVERY 12 Medical mcg/dose HOURS Branch inhalation disk FLUTICASONE 2022-0 Yes [id number] 1{puff} INHALE 1 [facility] PROPION-HAKAN 9-27 PUFF BY ity o f METEROL 00:00: MOUTH [place] 250-50 EVERY 12 Medical mcg/dose HOURS Branch inhalation disk FLUTICASONE 2022-0 Yes [id number] 1{puff} INHALE 1 [facility] PROPION-HAKAN 9-27 PUFF BY ity o f METEROL 00:00: MOUTH [place] 250-50 EVERY 12 Medical mcg/dose HOURS Branch inhalation disk FLUTICASONE 2022-0 Yes [id number] 1{puff} INHALE 1 [facility] PROPION-HAKAN 9-27 PUFF BY ity o f METEROL 00:00: MOUTH [place] 250-50 EVERY 12 Medical mcg/dose HOURS Branch inhalation disk FLUTICASONE 2023-0 Yes [id number] 1{puff} INHALE 1 [facility] PROPION-HAKAN 9-27 PUFF BY ity o f METEROL 00:00: MOUTH [place] 250-50 EVERY 12 Medical mcg/dose HOURS Branch inhalation disk FLUTICASONE 0 Yes [id number] 1{puff} INHALE 1 [facility] PROPION-HAKAN 9-27 PUFF BY ity o f METEROL 00:00: MOUTH [place] 250-50 EVERY 12 Medical mcg/dose HOURS Branch inhalation disk FLUTICASONE 0 Yes [id number] 1{puff} INHALE 1 [facility] PROPION-HAKAN 9-27 PUFF BY ity o f METEROL 00:00: MOUTH [place] 250-50 EVERY 12 Medical mcg/dose HOURS Branch inhalation disk FLUTICASONE 0 Yes [id number] 1{puff} INHALE 1 [facility] PROPION-HAKAN 9-27 PUFF BY ity o f METEROL 00:00: MOUTH [place] 250-50 EVERY 12 Medical mcg/dose HOURS Branch inhalation disk FLUTICASONE 0 Yes [id number] 1{puff} INHALE 1 [facility] PROPION-HAKAN 9-27 PUFF BY ity o f METEROL 00:00: MOUTH [place] 250-50 EVERY 12 Medical mcg/dose HOURS Branch inhalation disk FLUTICASONE 0 Yes [id number] 1{puff} INHALE 1 [facility] PROPION-HAKAN 9-27 PUFF BY ity o f METEROL 00:00: MOUTH [place] 250-50 EVERY 12 Medical mcg/dose HOURS Branch inhalation disk FLUTICASONE 0 Yes [id number] 1{puff} INHALE 1 [facility] PROPION-HAKAN 9-27 PUFF BY ity o f METEROL 00:00: MOUTH [place] 250-50 EVERY 12 Medical mcg/dose HOURS Branch inhalation disk FLUTICASONE 2022-0 Yes [id number] 1{puff} INHALE 1 [facility] PROPION-HAKAN 9-27 PUFF BY ity o f METEROL 00:00: MOUTH [place] 250-50 00 EVERY 12 Medical mcg/dose HOURS Branch inhalation disk FLUTICASONE 2022-0 Yes [id number] 1{puff} INHALE 1 [facility] PROPION-HAKAN 9-27 PUFF BY ity o f METEROL 00:00: MOUTH [place] 250-50 00 EVERY 12 Medical mcg/dose HOURS Branch inhalation disk FLUTICASONE 2023-0 Yes [id number] 1{puff} INHALE 1 [facility] PROPION-HAKAN 9-27 PUFF BY ity o f METEROL 00:00: MOUTH [place] 250-50 00 EVERY 12 Medical mcg/dose HOURS Branch inhalation disk FLUTICASONE 2023-0 Yes [id number] 1{puff} INHALE 1 [facility] PROPION-HAKAN 9-27 PUFF BY ity o f METEROL 00:00: MOUTH [place] 250-50 00 EVERY 12 Medical mcg/dose HOURS Branch inhalation disk famotidine 2023-0 Yes [id number] 20mg Take 1 [facility] 20 mg 9-13 tablet by ity of tablet 00:00: mouth [address] [place] [address] (two) Medical times Branch daily. famotidine 2023-0 Yes [id number] 20mg Take 1 [facility] 20 mg 9-13 tablet by ity of tablet 00:00: [address] (two) Medical times Branch daily. famotidine 2023-0 Yes [id number] 20mg Take 1 [facility] 20 mg 9-13 tablet by ity of tablet 00:00: [address] (two) Medical times Branch daily. famotidine 2023-0 Yes [id number] 20mg Take 1 [facility] 20 mg 9-13 tablet by ity of tablet 00:00: [address] (two) Medical times Branch daily. famotidine 2023-0 Yes [id number] 20mg Take 1 [facility] 20 mg 9-13 tablet by ity of tablet 00:00: [address] (two) Medical times Branch daily. famotidine 2023-0 Yes [id number] 20mg Take 1 [facility] 20 mg 9-13 tablet by ity of tablet 00:00: [address] (two) Medical times Branch daily. famotidine 2023-0 Yes [id number] 20mg Take 1 [facility] 20 mg 9-13 tablet by ity of tablet 00:00: [address] (two) Medical times Branch daily. famotidine 2023-0 Yes [id number] 20mg Take 1 [facility] 20 mg 9-13 tablet by ity of tablet 00:00: mouth [address] [place] [address] (two) Medical times Branch daily. famotidine 2023-0 Yes [id number] 20mg Take 1 [facility] 20 mg 9-13 tablet by ity of tablet 00:00: mouth (two) Medical times Branch daily. famotidine 2023-0 Yes [id number] 20mg Take 1 [facility] 20 mg 9-13 tablet by ity of tablet 00:00: mouth (two) Medical times Branch daily. famotidine 2023-0 Yes [id number] 20mg Take 1 [facility] 20 mg 9-13 tablet by ity of tablet 00:00: mouth (two) Medical times Branch daily. famotidine 2023-0 Yes [id number] 20mg Take 1 [facility] 20 mg 9-13 tablet by ity of tablet 00:00: mouth (two) Medical times Branch daily. famotidine 2023-0 Yes [id number] 20mg Take 1 [facility] 20 mg 9-13 tablet by ity of tablet 00:00: mouth (two) Medical times Branch daily. famotidine 2023-0 Yes [id number] 20mg Take 1 [facility] 20 mg 9-13 tablet by ity of tablet 00:00: mouth (two) Medical times Branch daily. famotidine 2023-0 Yes [id number] 20mg Take 1 [facility] 20 mg 9-13 tablet by ity of tablet 00:00: mouth (two) Medical times Branch daily. famotidine 2023-0 Yes [id number] 20mg Take 1 [facility] 20 mg 9-13 tablet by ity of tablet 00:00: mouth (two) Medical times Branch daily. famotidine 2023-0 Yes [id number] 20mg Take 1 [facility] 20 mg 9-13 tablet by ity of tablet 00:00: mouth (two) Medical times Branch daily. famotidine 2023-0 Yes [id number] 20mg Take 1 [facility] 20 mg 9-13 tablet by ity of tablet 00:00: mouth (two) Medical times Branch daily. famotidine 2023-0 Yes [id number] 20mg Take 1 [facility] 20 mg 9-13 tablet by ity of tablet 00:00: mouth (two) Medical times Branch daily. famotidine 2023-0 Yes [id number] 20mg Take 1 [facility] 20 mg 9-13 tablet by ity of tablet 00:00: mouth (two) Medical times Branch daily. famotidine 2023-0 Yes [id number] 20mg Take 1 [facility] 20 mg 9-13 tablet by ity of tablet 00:00: mouth (two) Medical times Branch daily. famotidine 2023-0 Yes [id number] 20mg Take 1 [facility] 20 mg 9-13 tablet by ity of tablet 00:00: mouth (two) Medical times Branch daily. famotidine 2023-0 Yes [id number] 20mg Take 1 [facility] 20 mg 9-13 tablet by ity of tablet 00:00: mouth (two) Medical times Branch daily. famotidine 2023-0 Yes [id number] 20mg Take 1 [facility] 20 mg 9-13 tablet by ity of tablet 00:00: mouth (two) Medical times Branch daily. famotidine 2023-0 Yes [id number] 20mg Take 1 [facility] 20 mg 9-13 tablet by ity of tablet 00:00: mouth (two) Medical times Branch daily. famotidine 2023-0 Yes [id number] 20mg Take 1 [facility] 20 mg 9-13 tablet by ity of tablet 00:00: mouth (two) Medical times Branch daily. famotidine 2023-0 Yes [id number] 20mg Take 1 [facility] 20 mg 9-13 tablet by ity of tablet 00:00: mouth (two) Medical times Branch daily. famotidine 2023-0 Yes [id number] 20mg Take 1 [facility] 20 mg 9-13 tablet by ity of tablet 00:00: mouth (two) Medical times Branch daily. famotidine 2023-0 Yes [id number] 20mg Take 1 [facility] 20 mg 9-13 tablet by ity of tablet 00:00: mouth (two) Medical times Branch daily. famotidine 2023-0 Yes [id number] 20mg Take 1 [facility] 20 mg 9-13 tablet by ity of tablet 00:00: mouth (two) Medical times Branch daily. famotidine 2023-0 Yes [id number] 20mg Take 1 [facility] 20 mg 9-13 tablet by ity of tablet 00:00: mouth (two) Medical times Branch daily. famotidine 2023-0 Yes [id number] 20mg Take 1 [facility] 20 mg 9-13 tablet by ity of tablet 00:00: mouth 2 [place] 00 (two) Medical times Branch daily. famotidine 2022-0 Yes [id number] 20mg Take 1 [facility] 20 mg 9-13 tablet by ity of tablet 00:00: mouth 2 [place] 00 (two) Medical times Branch daily. famotidine 2022-0 Yes [id number] 20mg Take 1 [facility] 20 mg 9-13 tablet by ity of tablet 00:00: mouth 2 [place] 00 (two) Medical times Branch daily. famotidine 0 Yes [id number] 20mg Take 1 [facility] 20 mg 9-13 tablet by ity of tablet 00:00: mouth 2 [place] 00 (two) Medical times Branch daily. amoxicillin 2022- No [id number] 500mg Take 1 [facility] 500 mg 8-11 08-19 tablet by ity of tablet 00:00: 04:59 mouth 2 [place] 00 :00 (two) Medical times Branch daily for 7 days. montelukast Yes [id number] 10mg Take 1 [facility] 10 mg 8-10 tablet by ity of tablet 00:00: mouth [place] 00 every Medical evening. [place] montelukast 0 Yes [id number] 10mg Take 1 [facility] 10 mg 8-10 tablet by ity of tablet 00:00: mouth [place] 00 every Medical evening. [place] montelukast Yes [id number] 10mg Take 1 [facility] 10 mg 8-10 tablet by ity of tablet 00:00: mouth [place] 00 every Medical evening. [place] montelukast 0 Yes [id number] 10mg Take 1 [facility] 10 mg 8-10 tablet by ity of tablet 00:00: mouth [place] 00 every Medical evening. [place] montelukast 0 Yes [id number] 10mg Take 1 [facility] 10 mg 8-10 tablet by ity of tablet 00:00: mouth [place] 00 every Medical evening. [place] montelukast 0 Yes [id number] 10mg Take 1 [facility] 10 mg 8-10 tablet by ity of tablet 00:00: mouth [place] 00 every Medical evening. [place] montelukast 0 Yes [id number] 10mg Take 1 [facility] 10 mg 8-10 tablet by ity of tablet 00:00: mouth [place] 00 every Medical evening. [place] montelukast Yes [id number] 10mg Take 1 [facility] 10 mg 8-10 tablet by ity of tablet 00:00: mouth [place] 00 every Medical evening. [place] montelukast Yes [id number] 10mg Take 1 [facility] 10 mg 8-10 tablet by ity of tablet 00:00: mouth [place] 00 every Medical evening. [place] montelukast Yes [id number] 10mg Take 1 [facility] 10 mg 8-10 tablet by ity of tablet 00:00: mouth [place] 00 every Medical evening. [place] montelukast 2022- No [id number] 10mg Take 1 [facility] 10 mg 8-10 10-23 tablet by ity of tablet 00:00: 00:00 mouth [place] 00 :00 every Medical evening. [place] denosumab 2022- No [id number] 60mg 60 mg, U n[facility] (PROLIA) 06-18 Subcutaneo ity of injection 14:45: 14:39 [place], ONCE, [place] Syrg 60 mg 00 :00 1 dose, On Med ical [place] 06/18/23 at 0945, Routine
council member approving Restricted medication : FAMILIA [place] cycloSPORIN Yes [id number] PLACE 1 [facility] E 7-20 DROP IN ity of (RESTASIS) 00:00: BOTH EYES [place] 0.05 % 00 EVERY 12 Medical drops HOURS Branch cycloSPORIN Yes [id number] PLACE 1 [facility] E 7-20 DROP IN ity of (RESTASIS) 00:00: BOTH EYES [place] 0.05 % 00 EVERY 12 Medical drops HOURS Branch cycloSPORIN Yes [id number] PL[address] 1 [facility] E 7-20 DROP IN ity of (RESTASIS) 00:00: BOTH EYES [place] 0.05 % 00 EVERY 12 Medical drops HOURS Branch cycloSPORIN Yes [id number] PL[address] 1 [facility] E 7-20 DROP IN ity of (RESTASIS) 00:00: BOTH EYES [place] 0.05 % 00 EVERY 12 Medical drops HOURS Branch cycloSPORIN Yes [id number] 1 [facility] E 7-20 DROP IN ity of (RESTASIS) 00:00: BOTH EYES [place] 0.05 % 00 EVERY 12 Medical drops HOURS Branch cycloSPORIN 2023-[id number] 1 [facility] E 7-20 DROP IN ity of (RESTASIS) 00:00: BOTH EYES [place] 0.05 % 00 EVERY 12 Medical drops HOURS Branch cycloSPORIN 2023-[id number] 1 [facility] E 7-20 DROP IN ity of (RESTASIS) 00:00: BOTH EYES [place] 0.05 % 00 EVERY 12 Medical drops HOURS Branch cycloSPORIN 2023-[id number] 1 [facility] E 7-20 DROP IN ity of (RESTASIS) 00:00: BOTH EYES [place] 0.05 % 00 EVERY 12 Medical drops HOURS Branch cycloSPORIN 2023-[id number] 1 [facility] E 7-20 DROP IN ity of (RESTASIS) 00:00: BOTH EYES [place] 0.05 % 00 EVERY 12 Medical drops HOURS Branch cycloSPORIN 2023-[id number] 1 [facility] E 7-20 DROP IN ity of (RESTASIS) 00:00: BOTH EYES [place] 0.05 % 00 EVERY 12 Medical drops HOURS Branch cycloSPORIN 2023-[id number] 1 [facility] E 7-20 DROP IN ity of (RESTASIS) 00:00: BOTH EYES [place] 0.05 % 00 EVERY 12 Medical drops HOURS Branch cycloSPORIN 2023-[id number] 1 [facility] E 7-20 DROP IN ity of (RESTASIS) 00:00: BOTH EYES [place] 0.05 % 00 EVERY 12 Medical drops HOURS Branch cycloSPORIN 2023-[id number] 1 [facility] E 7-20 DROP IN ity of (RESTASIS) 00:00: BOTH EYES [place] 0.05 % 00 EVERY 12 Medical drops HOURS Branch cycloSPORIN 2023-[id number] 1 [facility] E 7-20 DROP IN ity of (RESTASIS) 00:00: BOTH EYES [place] 0.05 % 00 EVERY 12 Medical drops HOURS Branch cycloSPORIN 2023-[id number] 1 [facility] E 7-20 DROP IN ity of (RESTASIS) 00:00: BOTH EYES [place] 0.05 % 00 EVERY 12 Medical drops HOURS Branch cycloSPORIN 2023-[id number] 1 [facility] E 7-20 DROP IN ity of (RESTASIS) 00:00: BOTH EYES [place] 0.05 % 00 EVERY 12 Medical drops HOURS Branch cycloSPORIN 2023-[id number] 1 [facility] E 7-20 DROP IN ity of (RESTASIS) 00:00: BOTH EYES [place] 0.05 % 00 EVERY 12 Medical drops HOURS Branch cycloSPORIN 2023-[id number] 1 [facility] E 7-20 DROP IN ity of (RESTASIS) 00:00: BOTH EYES [place] 0.05 % 00 EVERY 12 Medical drops HOURS Branch cycloSPORIN 2023-[id number] 1 [facility] E 7-20 DROP IN ity of (RESTASIS) 00:00: BOTH EYES [place] 0.05 % 00 EVERY 12 Medical drops HOURS Branch cycloSPORIN 2023-[id number] 1 [facility] E 7-20 DROP IN ity of (RESTASIS) 00:00: BOTH EYES [place] 0.05 % 00 EVERY 12 Medical drops HOURS Branch cycloSPORIN 2023-[id number] 1 [facility] E 7-20 DROP IN ity of (RESTASIS) 00:00: BOTH EYES [place] 0.05 % 00 EVERY 12 Medical drops HOURS Branch cycloSPORIN 2023-[id number] 1 [facility] E 7-20 DROP IN ity of (RESTASIS) 00:00: BOTH EYES [place] 0.05 % 00 EVERY 12 Medical drops HOURS Branch cycloSPORIN 2023-[id number] 1 [facility] E 7-20 DROP IN ity of (RESTASIS) 00:00: BOTH EYES [place] 0.05 % 00 EVERY 12 Medical drops HOURS Branch cycloSPORIN 2023-[id number] 1 [facility] E 7-20 DROP IN ity of (RESTASIS) 00:00: BOTH EYES [place] 0.05 % 00 EVERY 12 Medical drops HOURS Branch cycloSPORIN 2023-[id number] 1 [facility] E 7-20 DROP IN ity of (RESTASIS) 00:00: BOTH EYES [place] 0.05 % 00 EVERY 12 Medical drops HOURS Branch cycloSPORIN 2023-[id number] 1 [facility] E 7-20 DROP IN ity of (RESTASIS) 00:00: BOTH EYES [place] 0.05 % 00 EVERY 12 Medical drops HOURS Branch cycloSPORIN 2023-[id number] 1 [facility] E 7-20 DROP IN ity of (RESTASIS) 00:00: BOTH EYES [place] 0.05 % 00 EVERY 12 Medical drops HOURS Branch cycloSPORIN 2023-[id number] 1 [facility] E 7-20 DROP IN ity of (RESTASIS) 00:00: BOTH EYES [place] 0.05 % 00 EVERY 12 Medical drops HOURS Branch cycloSPORIN 2023-[id number] 1 [facility] E 7-20 DROP IN ity of (RESTASIS) 00:00: BOTH EYES [place] 0.05 % 00 EVERY 12 Medical drops HOURS Branch cycloSPORIN 2023-[id number] 1 [facility] E 7-20 DROP IN ity of (RESTASIS) 00:00: BOTH EYES [place] 0.05 % 00 EVERY 12 Medical drops HOURS Branch cycloSPORIN 2023-[id number] 1 [facility] E 7-20 DROP IN ity of (RESTASIS) 00:00: BOTH EYES [place] 0.05 % 00 EVERY 12 Medical drops HOURS Branch cycloSPORIN 2023-[id number] 1 [facility] E 7-20 DROP IN ity of (RESTASIS) 00:00: BOTH EYES [place] 0.05 % 00 EVERY 12 Medical drops HOURS Branch cycloSPORIN 2023-[id number] 1 [facility] E 7-20 DROP IN ity of (RESTASIS) 00:00: BOTH EYES [place] 0.05 % 00 EVERY 12 Medical drops HOURS Branch cycloSPORIN 2023-[id number] 1 [facility] E 7-20 DROP IN ity of (RESTASIS) 00:00: BOTH EYES [place] 0.05 % 00 EVERY 12 Medical drops HOURS Branch cycloSPORIN 2023-[id number] 1 [facility] E 7-20 DROP IN ity of (RESTASIS) 00:00: BOTH EYES [place] 0.05 % 00 EVERY 12 Medical drops HOURS Branch cycloSPORIN 2023-[id number] 1 [facility] E 7-20 DROP IN ity of (RESTASIS) 00:00: BOTH EYES [place] 0.05 % 00 EVERY 12 Medical drops HOURS Branch cycloSPORIN 2023-[id number] 1 [facility] E 7-20 DROP IN ity of (RESTASIS) 00:00: BOTH EYES [place] 0.05 % 00 EVERY 12 Medical drops HOURS Branch cycloSPORIN 2023-[id number] 1 [facility] E 7-20 DROP IN ity of (RESTASIS) 00:00: BOTH EYES [place] 0.05 % 00 EVERY 12 Medical drops HOURS Branch cycloSPORIN 2022-[id number] 1 [facility] E 7-20 DROP IN ity of (RESTASIS) 00:00: BOTH EYES [place] 0.05 % 00 EVERY 12 Medical drops HOURS Branch cycloSPORIN 2022-[id number] 1 [facility] E 7-20 DROP IN ity of (RESTASIS) 00:00: BOTH EYES [place] 0.05 % 00 EVERY 12 Medical drops HOURS Branch cycloSPORIN 2023-[id number] 1 [facility] E 7-20 DROP IN ity of (RESTASIS) 00:00: BOTH EYES [place] 0.05 % 00 EVERY 12 Medical drops HOURS Branch cycloSPORIN 2022-[id number] 1 [facility] E 7-20 DROP IN ity of (RESTASIS) 00:00: BOTH EYES [place] 0.05 % 00 EVERY 12 Medical drops HOURS Branch cycloSPORIN 2022-[id number] 1 [facility] E 7-20 DROP IN ity of (RESTASIS) 00:00: BOTH EYES [place] 0.05 % 00 EVERY 12 Medical drops HOURS Branch cycloSPORIN 2022-[id number] 1 [facility] E 7-20 DROP IN ity of (RESTASIS) 00:00: BOTH EYES [place] 0.05 % 00 EVERY 12 Medical drops HOURS Branch omeprazole 2022-0 Yes [id number] 20mg Take 1 [facility] 20 mg 7-14 capsule by ity of capsule 00:00: mouth [place] 00 daily. Medical Branch omeprazole 2022-0 Yes [id number] 20mg Take 1 [facility] 20 mg 7-14 capsule by ity of capsule 00:00: mouth [place] 00 daily. Medical Branch rosuvastati 2022-0 Yes [id number] 5mg Take 1 [facility] n 5 mg 7-14 tablet by ity of tablet 00:00: mouth at [place] 00 bedtime. Medical Branch omeprazole 2022-0 Yes [id number] 20mg Take 1 [facility] 20 mg 7-14 capsule by ity of capsule 00:00: mouth [place] 00 daily. Medical Branch rosuvastati 2022-0 Yes [id number] 5mg Take 1 [facility] n 5 mg 7-14 tablet by ity of tablet 00:00: mouth at [place] bedtime. Medical Branch omeprazole 3-0 Yes [id number] 20mg Take 1 [facility] 20 mg 7-14 capsule by [facility] capsule 00:00: mouth 00 daily. [facility] carvediloL 3-0 Yes 25mg Take 1 [facility] 25 mg 7-14 tablet by [facility] tablet 00:00: mouth 2 (two) Medical times Branch daily with meals. furosemide 2023-0 Yes 20mg Take 1 [facility] 20 mg 7-14 tablet by [facility] tablet 00:00: mouth as needed Medical (edema). Branch Take 1 tablet two times daily PNV,calcium 3-0 Yes 1{tbl} Take 1 [facility] aleksandr 72-iron-fol 7-14 tablet by [facility] ic acid 00:00: mouth [place] ([facility] every [facility] PLUS) 27 mg morning. [facility] ch iron- 1 mg tablet rosuvastati 2022-0 Yes [id number] 5mg Take 1 [facility] n 5 mg 7-14 tablet by [facility] tablet 00:00: mouth at [place] bedtime. [facility] omeprazole 2022-0 Yes [id number] 20mg Take 1 [facility] 20 mg 7-14 capsule by [facility] capsule 00:00: mouth daily. [facility] carvediloL 2022-0 Yes 25mg Take 1 [facility] 25 mg 7-14 tablet by [facility] tablet 00:00: mouth (two) Medical times Branch daily with meals. furosemide 3-0 Yes 20mg Take 1 [facility] 20 mg 7-14 tablet by [facility] tablet 00:00: mouth as needed Medical (edema). Branch Take 1 tablet two times daily PNV,calcium 3-0 Yes 1{tbl} Take 1 [facility] aleksandr 72-iron-fol 7-14 tablet by [facility] ic acid 00:00: mouth [place] ([facility] every Medical PLUS) 27 mg morning. [facility] ch iron- 1 mg tablet spironolact 3-0 Yes [id number] 25mg Take 1 [facility] one 25 mg 7-14 tablet by [facility] o f tablet 00:00: mouth 00 daily. [facility] rosuvastati 2023-0 Yes [id number] 5mg Take 1 [facility] n 5 mg 7-14 tablet by [facility] tablet 00:00: mouth at [place] 00 bedtime. [facility] omeprazole 2022-0 Yes [id number] 20mg Take 1 [facility] 20 mg 7-14 capsule by [facility] capsule 00:00: mouth [place] 00 daily. [facility] carvediloL 2022-0 Yes 25mg Take 1 [facility] 25 mg 7-14 tablet by [facility] tablet 00:00: mouth 2 00 (two) Medical times Branch daily with meals. furosemide 2022-0 Yes 20mg Take 1 [facility] 20 mg 7-14 tablet by [facility] tablet 00:00: mouth as [place] 00 needed Medical (edema). Branch Take 1 tablet two times daily PNV,calcium 2022-0 Yes 1{tbl} Take 1 [facility] aleksandr 72-iron-fol 7-14 tablet by [facility] ic acid 00:00: mouth [place] ([facility] 00 every Medical PLUS) 27 mg morning. [facility] ch iron- 1 mg tablet spironolact 2022-0 Yes [id number] 25mg Take 1 [facility] one 25 mg 7-14 tablet by [facility] o f tablet 00:00: mouth [place] 00 daily. [facility] predniSONE 2022-0 Yes [id number] 5mg Take 1 [facility] 5 mg tablet 7-14 tablet by [facility] 00:00: mouth [place] 00 daily. [facility] rosuvastati 2022-0 Yes [id number] 5mg Take 1 [facility] n 5 mg 7-14 tablet by [facility] tablet 00:00: mouth at [place] 00 bedtime. [facility] omeprazole 2022-0 Yes [id number] 20mg Take 1 [facility] 20 mg 7-14 capsule by [facility] capsule 00:00: mouth [place] 00 daily. [facility] carvediloL 2022-0 Yes 25mg Take 1 [facility] 25 mg 7-14 tablet by [facility] tablet 00:00: mouth 2 00 (two) Medical times [facility] daily with meals. omeprazole 2022-0 Yes [id number] 20mg Take 1 [facility] 20 mg 7-14 capsule by [facility] capsule 00:00: mouth [place] 00 daily. [facility] omeprazole 2022-0 Yes [id number] 20mg Take 1 [facility] 20 mg 7-14 capsule by [facility] capsule 00:00: mouth [place] 00 daily. [facility] furosemide 2022-0 Yes 20mg Take 1 [facility] 20 mg 7-14 tablet by [facility] tablet 00:00: mouth as [place] 00 needed Medical (edema). Branch Take 1 tablet two times daily PNV,calcium Yes 1{tbl} Take 1 [facility] aleksandr 72-iron-fol 7-14 tablet by [facility] ic acid 00:00: mouth [place] ([facility] 00 every Medical PLUS) 27 mg morning. [facility] ch iron- 1 mg tablet spironolact Yes [id number] 25mg Take 1 [facility] one 25 mg 7-14 tablet by [facility] o f tablet 00:00: mouth [place] 00 daily. [facility] predniSONE Yes [id number] 5mg Take 1 [facility] 5 mg tablet 7-14 tablet by [facility] of 00:00: mouth [place] 00 daily. [facility] rosuvastati Yes [id number] 5mg Take 1 [facility] n 5 mg 7-14 tablet by [facility] tablet 00:00: mouth at [place] 00 bedtime. [facility] omeprazole Yes [id number] 20mg Take 1 [facility] 20 mg 7-14 capsule by [facility] capsule 00:00: mouth [place] 00 daily. [facility] carvediloL Yes 25mg Take 1 [facility] 25 mg 7-14 tablet by [facility] tablet 00:00: mouth 2 [place] 00 (two) Medical times Branch daily with meals. furosemide Yes 20mg Take 1 [facility] 20 mg 7-14 tablet by [facility] tablet 00:00: mouth as [place] 00 needed Medical (edema). Branch Take 1 tablet two times daily PNV,calcium Yes 1{tbl} Take 1 [facility] aleks[facility]r 72-iron-fol 7-14 tablet by [facility] ic acid 00:00: mouth [place] ([facility] 00 every Medical PLUS) 27 mg morning. Bran ch iron- 1 mg tablet spironolact Yes [id number] 25mg Take 1 [facility] one 25 mg 7-14 tablet by [facility] o f tablet 00:00: mouth [place] 00 daily. [facility] predniSONE Yes [id number] 5mg Take 1 [facility] 5 mg tablet 7-14 tablet by [facility] of 00:00: mouth [place] 00 daily. [facility] rosuvastati Yes [id number] 5mg Take 1 [facility] n 5 mg 7-14 tablet by [facility] tablet 00:00: mouth at [place] 00 bedtime. [facility] omeprazole 2022-0 Yes [id number] 20mg Take 1 [facility] 20 mg 7-14 capsule by [facility] capsule 00:00: mouth [place] 00 daily. [facility] carvediloL 2022-0 Yes 25mg Take 1 [facility] 25 mg 7-14 tablet by [facility] tablet 00:00: mouth 2 (two) Medical times Branch daily with meals. furosemide 2022-0 Yes 20mg Take 1 [facility] 20 mg 7-14 tablet by [facility] tablet 00:00: mouth as 00 needed Medical (edema). Branch Take 1 tablet two times daily PNV,calcium 2022-0 Yes 1{tbl} Take 1 [facility] aleksandr 72-iron-fol 7-14 tablet by [facility] of ic acid 00:00: mouth [place] ([facility] every Medical PLUS) 27 mg morning. Bran ch iron- 1 mg tablet spironolact 2022-0 Yes [id number] 25mg Take 1 [facility] one 25 mg 7-14 tablet by [facility] o f tablet 00:00: mouth [place] 00 daily. [facility] predniSONE 2022-0 Yes [id number] 5mg Take 1 [facility] 5 mg tablet 7-14 tablet by [facility] of 00:00: mouth 00 daily. [facility] rosuvastati 2022-0 Yes [id number] 5mg Take 1 [facility] n 5 mg 7-14 tablet by [facility] tablet 00:00: mouth at [place] 00 bedtime. [facility] omeprazole 2022-0 Yes [id number] 20mg Take 1 [facility] 20 mg 7-14 capsule by [facility] capsule 00:00: mouth 00 daily. [facility] carvediloL 2022-0 Yes 25mg Take 1 [facility] 25 mg 7-14 tablet by [facility] tablet 00:00: mouth 2 (two) Medical times Branch daily with meals. furosemide 2022-0 Yes 20mg Take 1 [facility] 20 mg 7-14 tablet by [facility] tablet 00:00: mouth as [place] 00 needed Medical (edema). Branch Take 1 tablet two times daily PNV,calcium 2022-0 Yes 1{tbl} Take 1 [facility] aleksandr 72-iron-fol 7-14 tablet by [facility] ic acid 00:00: mouth [place] ([facility] 00 every Medical PLUS) 27 mg morning. Bran ch iron- 1 mg tablet spironolact 2022-0 Yes [id number] 25mg Take 1 [facility] one 25 mg 7-14 tablet by [facility] o f tablet 00:00: mouth [place] 00 daily. [facility] predniSONE 2022-0 Yes [id number] 5mg Take 1 [facility] 5 mg tablet 7-14 tablet by [facility] of 00:00: mouth [place] 00 daily. [facility] rosuvastati 2022-0 Yes [id number] 5mg Take 1 [facility] n 5 mg 7-14 tablet by [facility] of tablet 00:00: mouth at [place] 00 bedtime. [facility] omeprazole 2022-0 Yes [id number] 20mg Take 1 [facility] 20 mg 7-14 capsule by [facility] capsule 00:00: mouth [place] 00 daily. [facility] carvediloL 2022-0 Yes 25mg Take 1 [facility] 25 mg 7-14 tablet by [facility] tablet 00:00: mouth 2 [place] 00 (two) Medical times Branch daily with meals. furosemide 2022-0 Yes 20mg Take 1 [facility] 20 mg 7-14 tablet by [facility] of tablet 00:00: mouth as [place] 00 needed Medical (edema). Branch Take 1 tablet two times daily PNV,calcium 0 Yes 1{tbl} Take 1 [facility] aleks[facility]r 72-iron-fol 7-14 tablet by [facility] of ic acid 00:00: mouth [place] ([facility] 00 every Medical PLUS) 27 mg morning. Bran ch iron- 1 mg tablet spironolact 2022-0 Yes [id number] 25mg Take 1 [facility] one 25 mg 7-14 tablet by [facility] o f tablet 00:00: mouth [place] 00 daily. [facility] predniSONE 2022-0 Yes [id number] 5mg Take 1 [facility] 5 mg tablet 7-14 tablet by [facility] of 00:00: mouth [place] 00 daily. [facility] rosuvastati 2022-0 Yes [id number] 5mg Take 1 [facility] n 5 mg 7-14 tablet by [facility] of tablet 00:00: mouth at [place] 00 bedtime. [facility] omeprazole 2022-0 Yes [id number] 20mg Take 1 [facility] 20 mg 7-14 capsule by [facility] of capsule 00:00: mouth [place] 00 daily. [facility] carvediloL 2022-0 Yes 25mg Take 1 [facility] 25 mg 7-14 tablet by [facility] of tablet 00:00: mouth 2 [place] 00 (two) Medical times Branch daily with meals. furosemide 2022-0 Yes 20mg Take 1 [facility] 20 mg 7-14 tablet by [facility] of tablet 00:00: mouth as [place] 00 needed Medical (edema). Branch Take 1 tablet two times daily PNV,calcium 2022-0 Yes 1{tbl} Take 1 [facility] aleksandr 72-iron-fol 7-14 tablet by [facility] of ic acid 00:00: mouth [place] ([facility] every Medical PLUS) 27 mg morning. Bran ch iron- 1 mg tablet spironolact 2022-0 Yes [id number] 25mg Take 1 [facility] one 25 mg 7-14 tablet by [facility] o f tablet 00:00: mouth [place] 00 daily. [facility] predniSONE 2022-0 Yes [id number] 5mg Take 1 [facility] 5 mg tablet 7-14 tablet by [facility] of 00:00: mouth [place] 00 daily. [facility] rosuvastati 2022-0 Yes [id number] 5mg Take 1 [facility] n 5 mg 7-14 tablet by [facility] of tablet 00:00: mouth at [place] 00 bedtime. [facility] omeprazole 2022-0 Yes [id number] 20mg Take 1 [facility] 20 mg 7-14 capsule by [facility] of capsule 00:00: mouth [place] 00 daily. Medical [facility] carvediloL 2022-0 Yes 25mg Take 1 [facility] 25 mg 7-14 tablet by [facility] of tablet 00:00: mouth 2 00 (two) Medical times Branch daily with meals. furosemide 2022-0 Yes 20mg Take 1 [facility] 20 mg 7-14 tablet by [facility] of tablet 00:00: mouth as [place] 00 needed Medical (edema). Branch Take 1 tablet two times daily PNV,calcium 2022-0 Yes 1{tbl} Take 1 [facility] aleksandr 72-iron-fol 7-14 tablet by ity of ic acid 00:00: mouth [place] ([facility] every Medical PLUS) 27 mg morning. Bran ch iron- 1 mg tablet spironolact 2022-0 Yes [id number] 25mg Take 1 [facility] one 25 mg 7-14 tablet by ity o f tablet 00:00: mouth [place] 00 daily. Medical [facility] predniSONE 2022-0 Yes [id number] 5mg Take 1 [facility] 5 mg tablet 7-14 tablet by [facility] of 00:00: mouth 00 daily. [facility] rosuvastati 2022-0 Yes [id number] 5mg Take 1 [facility] n 5 mg 7-14 tablet by [facility] of tablet 00:00: mouth at [place] 00 bedtime. [facility] omeprazole 2022-0 Yes [id number] 20mg Take 1 [facility] 20 mg 7-14 capsule by [facility] of capsule 00:00: mouth 00 daily. [facility] carvediloL 2022-0 Yes 25mg Take 1 [facility] 25 mg 7-14 tablet by [facility] of tablet 00:00: mouth (two) Medical times Branch daily with meals. furosemide 2022-0 Yes 20mg Take 1 [facility] 20 mg 7-14 tablet by [facility] of tablet 00:00: mouth as needed Medical (edema). Branch Take 1 tablet two times daily PNV,calcium 2022-0 Yes 1{tbl} Take 1 [facility] ale[facility]r 72-iron-fol 7-14 tablet by [facility] of ic acid 00:00: mouth ([facility] 00 every Medical PLUS) 27 mg morning. Bran ch iron- 1 mg tablet spironolact 2022-0 Yes [id number] 25mg Take 1 [facility] one 25 mg 7-14 tablet by ity o f tablet 00:00: mouth 00 daily. Medical Branch predniSONE 2022-0 Yes [id number] 5mg Take 1 [facility] 5 mg tablet 7-14 tablet by [facility]y of 00:00: mouth 00 daily. Medical Branch rosuvastati 2022-0 Yes [id number] 5mg Take 1 [facility] n 5 mg 7-14 tablet by [facility] of tablet 00:00: mouth at [place] 00 bedtime. Medical Branch omeprazole 2022-0 Yes [id number] 20mg Take 1 [facility] 20 mg 7-14 capsule by [facility] of capsule 00:00: mouth 00 daily. [facility] carvediloL 2022-0 Yes 25mg Take 1 [facility] 25 mg 7-14 tablet by [facility] of tablet 00:00: mouth (two) Medical times Branch daily with meals. furosemide 2022-0 Yes 20mg Take 1 [facility] 20 mg 7-14 tablet by [facility] of tablet 00:00: mouth as 00 needed Medical (edema). Branch Take 1 tablet two times daily PNV,calcium 2023-0 Yes 1{tbl} Take 1 [facility] aleks[facility]r 72-iron-fol 7-14 tablet by [facility]y of ic acid 00:00: mouth [place] ([facility] every Medical PLUS) 27 mg morning. Bran ch iron- 1 mg tablet spironolact Yes [id number] 25mg Take 1 [facility] one 25 mg 7-14 tablet by it[facility] o f tablet 00:00: mouth [place] 00 daily. Medical [facility] predniSONE 0 Yes [id number] 5mg Take 1 [facility] 5 mg tablet 7-14 tablet by [facility]y of 00:00: mouth [place] 00 daily. [facility] rosuvastati Yes [id number] 5mg Take 1 [facility] n 5 mg 7-14 tablet by it[facility] of tablet 00:00: mouth at [place] 00 bedtime. Medical Branch omeprazole Yes [id number] 20mg Take 1 [facility] 20 mg 7-14 capsule by [facility] of capsule 00:00: mouth [place] 00 daily. [facility] carvediloL Yes 25mg Take 1 [facility] 25 mg 7-14 tablet by [facility] of tablet 00:00: mouth 2 [place] 00 (two) Medical times Branch daily with meals. furosemide Yes 20mg Take 1 [facility] rs 20 mg 7-14 tablet by [facility] of tablet 00:00: mouth as [place] 00 needed Medical (edema). Branch Take 1 tablet two times daily PNV,calcium Yes 1{tbl} Take 1 [facility] aleksandr 72-iron-fol 7-14 tablet by [facility] of ic acid 00:00: mouth [place] ([facility] every Medical PLUS) 27 mg morning. Bran ch iron- 1 mg tablet spironolact Yes [id number] 25mg Take 1 [facility] one 25 mg 7-14 tablet by it[facility] o f tablet 00:00: mouth [place] 00 daily. [facility] predniSONE 0 Yes [id number] 5mg Take 1 [facility] 5 mg tablet 7-14 tablet by [facility]y of 00:00: mouth [place] 00 daily. Medical [facility] rosuvastati 0 Yes [id number] 5mg Take 1 [facility] n 5 mg 7-14 tablet by [facility] of tablet 00:00: mouth at [place] 00 bedtime. Medical Branch omeprazole 2022-0 Yes [id number] 20mg Take 1 [facility] 20 mg 7-14 capsule by [facility] of capsule 00:00: mouth [place] 00 daily. Medical [facility] carvediloL 2022-0 Yes 25mg Take 1 [facility] 25 mg 7-14 tablet by [facility] of tablet 00:00: mouth 2 (two) Medical times Branch daily with meals. furosemide 2022-0 Yes 20mg Take 1 [facility] rs 20 mg 7-14 tablet by [facility] of tablet 00:00: mouth as 00 needed Medical (edema). Branch Take 1 tablet two times daily PNV,calcium 2022-0 Yes 1{tbl} Take 1 [facility] aleks[facility]r 72-iron-fol 7-14 tablet by [facility] of ic acid 00:00: mouth [place] ([facility] every Medical PLUS) 27 mg morning. Bran ch iron- 1 mg tablet spironolact 2022-0 Yes [id number] 25mg Take 1 [facility] one 25 mg 7-14 tablet by [facility] o f tablet 00:00: mouth 00 daily. Medical [facility] predniSONE 2022-0 Yes [id number] 5mg Take 1 [facility] 5 mg tablet 7-14 tablet by [facility] of 00:00: mouth 00 daily. [facility] rosuvastati 2022-0 Yes [id number] 5mg Take 1 [facility] n 5 mg 7-14 tablet by [facility] of tablet 00:00: mouth at 00 bedtime. Medical [facility] omeprazole 2022-0 Yes [id number] 20mg Take 1 [facility] 20 mg 7-14 capsule by [facility] of capsule 00:00: mouth 00 daily. [facility] carvediloL 2022-0 Yes 25mg Take 1 [facility] 25 mg 7-14 tablet by [facility] of tablet 00:00: mouth 2 (two) Medical times Branch daily with meals. furosemide 2022-0 Yes 20mg Take 1 [facility] rs 20 mg 7-14 tablet by [facility] of tablet 00:00: mouth as 00 needed Medical (edema). Branch Take 1 tablet two times daily PNV,calcium 2022-0 Yes 1{tbl} Take 1 [facility] aleks[facility]r 72-iron-fol 7-14 tablet by [facility]y of ic acid 00:00: mouth [place] ([facility] 00 every Medical PLUS) 27 mg morning. Bran ch iron- 1 mg tablet spironolact 2022-0 Yes [id number] 25mg Take 1 [facility] one 25 mg 7-14 tablet by ity o f tablet 00:00: mouth [place] 00 daily. [facility] predniSONE 2022-0 Yes [id number] 5mg Take 1 [facility] 5 mg tablet 7-14 tablet by [facility]y of 00:00: mouth [place] 00 daily. [facility] rosuvastati 2022-0 Yes [id number] 5mg Take 1 [facility] n 5 mg 7-14 tablet by [facility] of tablet 00:00: mouth at [place] 00 bedtime. [facility] omeprazole 2022-0 Yes [id number] 20mg Take 1 [facility] 20 mg 7-14 capsule by [facility] of capsule 00:00: mouth [place] 00 daily. [facility] carvediloL 2022-0 Yes 25mg Take 1 [facility] 25 mg 7-14 tablet by [facility] of tablet 00:00: mouth 2 (two) Medical times Branch daily with meals. furosemide 0 Yes 20mg Take 1 [facility] rs 20 mg 7-14 tablet by [facility] of tablet 00:00: mouth as 00 needed Medical (edema). Branch Take 1 tablet two times daily PNV,calcium 0 Yes 1{tbl} Take 1 [facility] aleksandr 72-iron-fol 7-14 tablet by ity of ic acid 00:00: mouth [place] ([facility] 00 every Medical PLUS) 27 mg morning. Bran ch iron- 1 mg tablet spironolact 2022-0 Yes [id number] 25mg Take 1 [facility] one 25 mg 7-14 tablet by ity o f tablet 00:00: mouth [place] 00 daily. Medical Branch predniSONE 2022-0 Yes [id number] 5mg Take 1 [facility] 5 mg tablet 7-14 tablet by [facility]y of 00:00: mouth [place] 00 daily. Medical Branch rosuvastati 2022-0 Yes [id number] 5mg Take 1 [facility] n 5 mg 7-14 tablet by [facility]y of tablet 00:00: mouth at [place] 00 bedtime. Medical Branch omeprazole 2022-0 Yes [id number] 20mg Take 1 [facility] 20 mg 7-14 capsule by [facility] of capsule 00:00: mouth [place] 00 daily. Medical [facility] carvediloL 2022-0 Yes 25mg Take 1 [facility] 25 mg 7-14 tablet by [facility] of tablet 00:00: mouth 2 (two) Medical times Branch daily with meals. furosemide 0 Yes 20mg Take 1 [facility] rs 20 mg 7-14 tablet by [facility]y of tablet 00:00: mouth as [place] 00 needed Medical (edema). Branch Take 1 tablet two times daily PNV,calcium 2022-0 Yes 1{tbl} Take 1 [facility] aleksandr 72-iron-fol 7-14 tablet by ity of ic acid 00:00: mouth [place] ([facility] 00 every Medical PLUS) 27 mg morning. Bran ch iron- 1 mg tablet spironolact 2022-0 Yes [id number] 25mg Take 1 [facility] one 25 mg 7-14 tablet by ity o f tablet 00:00: mouth [place] 00 daily. Medical Branch predniSONE 2022-0 Yes [id number] 5mg Take 1 [facility] 5 mg tablet 7-14 tablet by ity of 00:00: mouth [place] 00 daily. Medical Branch rosuvastati 0 Yes [id number] 5mg Take 1 [facility] n 5 mg 7-14 tablet by ity of tablet 00:00: mouth at [place] 00 bedtime. Medical Branch omeprazole 2022-0 Yes [id number] 20mg Take 1 [facility] 20 mg 7-14 capsule by [facility] of capsule 00:00: mouth [place] 00 daily. [facility] carvediloL 0 Yes 25mg Take 1 [facility] rs 25 mg 7-14 tablet by [facility]y of tablet 00:00: mouth 2 [place] 00 (two) Medical times Branch daily with meals. furosemide 0 Yes 20mg Take 1 [facility] rs 20 mg 7-14 tablet by [facility]y of tablet 00:00: mouth as [place] 00 needed Medical (edema). Branch Take 1 tablet two times daily PNV,calcium 2022-0 Yes 1{tbl} Take 1 [facility] aleksandr 72-iron-fol 7-14 tablet by ity of ic acid 00:00: mouth [place] ([facility] 00 every Medical PLUS) 27 mg morning. Bran ch iron- 1 mg tablet spironolact 2022-0 Yes [id number] 25mg Take 1 [facility] one 25 mg 7-14 tablet by ity o f tablet 00:00: mouth [place] 00 daily. Medical Branch predniSONE 2022-0 Yes [id number] 5mg Take 1 [facility] 5 mg tablet 7-14 tablet by ity of 00:00: mouth [place] 00 daily. [facility] rosuvastati 2022-0 Yes [id number] 5mg Take 1 [facility] n 5 mg 7-14 tablet by ity of tablet 00:00: mouth at [place] 00 bedtime. Medical Branch omeprazole 2022-0 Yes [id number] 20mg Take 1 [facility] 20 mg 7-14 capsule by [facility]y of capsule 00:00: mouth [place] 00 daily. Medical [facility] carvediloL 2022-0 Yes 25mg Take 1 [facility] rs 25 mg 7-14 tablet by [facility] of tablet 00:00: mouth 2 00 (two) Medical times Branch daily with meals. furosemide 2022-0 Yes 20mg Take 1 [facility] rs 20 mg 7-14 tablet by [facility]y of tablet 00:00: mouth as [place] 00 needed Medical (edema). Branch Take 1 tablet two times daily PNV,calcium 2022-0 Yes 1{tbl} Take 1 [facility] ale[facility]r 72-iron-fol 7-14 tablet by ity of ic acid 00:00: mouth [place] ([facility] 00 every Medical PLUS) 27 mg morning. Bran ch iron- 1 mg tablet spironolact 2022-0 Yes [id number] 25mg Take 1 [facility] one 25 mg 7-14 tablet by it[facility] o f tablet 00:00: mouth [place] 00 daily. [facility] predniSONE 2022-0 Yes [id number] 5mg Take 1 [facility] 5 mg tablet 7-14 tablet by [facility] of 00:00: mouth [place] 00 daily. [facility] rosuvastati 2022-0 Yes [id number] 5mg Take 1 [facility] n 5 mg 7-14 tablet by [facility] of tablet 00:00: mouth at [place] 00 bedtime. [facility] omeprazole 2022-0 Yes [id number] 20mg Take 1 [facility] 20 mg 7-14 capsule by [facility] of capsule 00:00: mouth [place] 00 daily. [facility] carvediloL 2022-0 Yes 25mg Take 1 [facility] 25 mg 7-14 tablet by [facility] of tablet 00:00: mouth 2 00 (two) Medical times Branch daily with meals. furosemide 2022-0 Yes 20mg Take 1 [facility] rs 20 mg 7-14 tablet by [facility] of tablet 00:00: mouth as [place] 00 needed Medical (edema). Branch Take 1 tablet two times daily PNV,calcium 2022-0 Yes 1{tbl} Take 1 [facility] aleksandr 72-iron-fol 7-14 tablet by [facility] of ic acid 00:00: mouth [place] ([facility] 00 every Medical PLUS) 27 mg morning. Bran ch iron- 1 mg tablet spironolact 2022-0 Yes [id number] 25mg Take 1 [facility] one 25 mg 7-14 tablet by [facility] o f tablet 00:00: mouth [place] 00 daily. [facility] predniSONE 2022-0 Yes [id number] 5mg Take 1 [facility] 5 mg tablet 7-14 tablet by [facility] of 00:00: mouth [place] 00 daily. [facility] rosuvastati 2022-0 Yes [id number] 5mg Take 1 [facility] n 5 mg 7-14 tablet by [facility] of tablet 00:00: mouth at [place] 00 bedtime. [facility] omeprazole 2022-0 Yes [id number] 20mg Take 1 [facility] 20 mg 7-14 capsule by [facility] of capsule 00:00: mouth [place] 00 daily. [facility] carvediloL 0 Yes 25mg Take 1 [facility] 25 mg 7-14 tablet by [facility] of tablet 00:00: mouth 2 [place] 00 (two) Medical times Branch daily with meals. furosemide 0 Yes 20mg Take 1 [facility] rs 20 mg 7-14 tablet by [facility] of tablet 00:00: mouth as [place] 00 needed Medical (edema). Branch Take 1 tablet two times daily PNV,calcium 0 Yes 1{tbl} Take 1 [facility] aleksandr 72-iron-fol 7-14 tablet by ity of ic acid 00:00: mouth [place] ([facility] 00 every Medical PLUS) 27 mg morning. Bran ch iron- 1 mg tablet spironolact 2022-0 Yes [id number] 25mg Take 1 [facility] one 25 mg 7-14 tablet by ity o f tablet 00:00: mouth [place] 00 daily. [facility] Branch predniSONE 2022-0 Yes [id number] 5mg Take 1 [facility] 5 mg tablet 7-14 tablet by ity of 00:00: mouth [place] 00 daily. [facility] rosuvastati 2022-0 Yes [id number] 5mg Take 1 [facility] n 5 mg 7-14 tablet by [facility] of tablet 00:00: mouth at [place] 00 bedtime. [facility] omeprazole 2022-0 Yes [id number] 20mg Take 1 [facility] 20 mg 7-14 capsule by [facility] of capsule 00:00: mouth [place] 00 daily. [facility] carvediloL 0 Yes 25mg Take 1 [facility] rs 25 mg 7-14 tablet by [facility] of tablet 00:00: mouth 2 [place] 00 (two) Medical times Branch daily with meals. furosemide 0 Yes 20mg Take 1 [facility] rs 20 mg 7-14 tablet by it[facility] of tablet 00:00: mouth as [place] 00 needed Medical (edema). Branch Take 1 tablet two times daily PNV,calcium 2022-0 Yes 1{tbl} Take 1 [facility] ale[facility]r 72-iron-fol 7-14 tablet by ity of ic acid 00:00: mouth [place] ([facility] 00 every Medical PLUS) 27 mg morning. Bran ch iron- 1 mg tablet spironolact 2022-0 Yes [id number] 25mg Take 1 [facility] one 25 mg 7-14 tablet by ity o f tablet 00:00: mouth [place] 00 daily. [facility] Branch predniSONE 0 Yes [id number] 5mg Take 1 [facility] 5 mg tablet 7-14 tablet by ity of 00:00: mouth [place] 00 daily. [facility] Branch rosuvastati 0 Yes [id number] 5mg Take 1 [facility] n 5 mg 7-14 tablet by ity of tablet 00:00: mouth at [place] 00 bedtime. [facility] Branch omeprazole 0 Yes [id number] 20mg Take 1 [facility] 20 mg 7-14 capsule by ity of capsule 00:00: mouth [place] 00 daily. [facility] carvediloL 0 Yes 25mg Take 1 [facility] rs 25 mg 7-14 tablet by [facility] of tablet 00:00: mouth 2 00 (two) Medical times Branch daily with meals. furosemide 2022-0 Yes 20mg Take 1 [facility] rs 20 mg 7-14 tablet by [facility] of tablet 00:00: mouth as [place] 00 needed Medical (edema). Branch Take 1 tablet two times daily PNV,calcium 2022-0 Yes 1{tbl} Take 1 Un aleksandr 72-iron-fol 7-14 tablet by ity of ic acid 00:00: mouth [place] ([facility] 00 every Medical PLUS) 27 mg morning. Bran ch iron- 1 mg tablet spironolact 2022-0 Yes [id number] 25mg Take 1 [facility] one 25 mg 7-14 tablet by ity o f tablet 00:00: mouth [place] 00 daily. [facility] predniSONE 2022-0 Yes [id number] 5mg Take 1 [facility] 5 mg tablet 7-14 tablet by ity of 00:00: mouth [place] 00 daily. [facility] rosuvastati 2022-0 Yes [id number] 5mg Take 1 [facility] n 5 mg 7-14 tablet by [facility] of tablet 00:00: mouth at [place] 00 bedtime. [facility] omeprazole 2022-0 Yes [id number] 20mg Take 1 [facility] 20 mg 7-14 capsule by [facility] of capsule 00:00: mouth [place] 00 daily. [facility] carvediloL 2022-0 Yes 25mg Take 1 [facility] rs 25 mg 7-14 tablet by [facility] of tablet 00:00: mouth 2 (two) Medical times Branch daily with meals. furosemide 2022-0 Yes 20mg Take 1 [facility] rs 20 mg 7-14 tablet by [facility] of tablet 00:00: mouth as [place] 00 needed Medical (edema). Branch Take 1 tablet two times daily PNV,calcium 0 Yes 1{tbl} Take 1 [facility] aleksandr 72-iron-fol 7-14 tablet by ity of ic acid 00:00: mouth [place] ([facility] 00 every Medical PLUS) 27 mg morning. Bran ch iron- 1 mg tablet spironolact 2022-0 Yes [id number] 25mg Take 1 [facility] one 25 mg 7-14 tablet by it[facility] o f tablet 00:00: mouth [place] 00 daily. [facility] predniSONE 2022-0 Yes [id number] 5mg Take 1 [facility] 5 mg tablet 7-14 tablet by [facility] of 00:00: mouth [place] 00 daily. [facility] rosuvastati 2022-0 Yes [id number] 5mg Take 1 [facility] n 5 mg 7-14 tablet by ity of tablet 00:00: mouth at [place] 00 bedtime. [facility] omeprazole 2022-0 Yes [id number] 20mg Take 1 [facility] 20 mg 7-14 capsule by [facility] capsule 00:00: mouth [place] 00 daily. [facility] carvediloL 2022-0 Yes 25mg Take 1 [facility] 25 mg 7-14 tablet by [facility] tablet 00:00: mouth 2 (two) Medical times Branch daily with meals. furosemide 2022-0 Yes 20mg Take 1 [facility] 20 mg 7-14 tablet by [facility] tablet 00:00: mouth as [place] 00 needed Medical (edema). Branch Take 1 tablet two times daily PNV,calcium 0 Yes 1{tbl} Take 1 [facility] aleksandr 72-iron-fol 7-14 tablet by [facility] of ic acid 00:00: mouth [place] (WEST[facility] 00 every Medical PLUS) 27 mg morning. Bran ch iron- 1 mg tablet spironolact 2022-0 Yes [id number] 25mg Take 1 [facility] one 25 mg 7-14 tablet by [facility] o f tablet 00:00: mouth [place] 00 daily. [facility] predniSONE 2022-0 Yes [id number] 5mg Take 1 [facility] 5 mg tablet 7-14 tablet by [facility] of 00:00: mouth [place] 00 daily. [facility] rosuvastati 2022-0 Yes [id number] 5mg Take 1 [facility] n 5 mg 7-14 tablet by [facility] tablet 00:00: mouth at [place] 00 bedtime. [facility] omeprazole 2022-0 Yes [id number] 20mg Take 1 [facility] 20 mg 7-14 capsule by [facility] capsule 00:00: mouth [place] 00 daily. [facility] carvediloL 0 Yes 25mg Take 1 [facility] 25 mg 7-14 tablet by [facility] tablet 00:00: mouth 2 00 (two) Medical times Branch daily with meals. furosemide 0 Yes 20mg Take 1 [facility] 20 mg 7-14 tablet by [facility] tablet 00:00: mouth as [place] 00 needed Medical (edema). Branch Take 1 tablet two times daily PNV,calcium 2022-0 Yes 1{tbl} Take 1 [facility] aleksandr 72-iron-fol 7-14 tablet by [facility] ic acid 00:00: mouth [place] (WE[facility] 00 every Medical PLUS) 27 mg morning. Bran ch iron- 1 mg tablet spironolact 2022-0 Yes [id number] 25mg Take 1 [facility] one 25 mg 7-14 tablet by [facility] o f tablet 00:00: mouth [place] 00 daily. [facility] predniSONE 2022-0 Yes [id number] 5mg Take 1 [facility] 5 mg tablet 7-14 tablet by [facility] of 00:00: mouth [place] 00 daily. [facility] rosuvastati 2022-0 Yes [id number] 5mg Take 1 [facility] n 5 mg 7-14 tablet by [facility] tablet 00:00: mouth at [place] 00 bedtime. [facility] omeprazole 2022-0 Yes [id number] 20mg Take 1 [facility] 20 mg 7-14 capsule by [facility] capsule 00:00: mouth 00 daily. [facility] carvediloL 2022-0 Yes 25mg Take 1 [facility] 25 mg 7-14 tablet by [facility] tablet 00:00: mouth 2 (two) Medical times Branch daily with meals. furosemide 2022-0 Yes 20mg Take 1 [facility] 20 mg 7-14 tablet by [facility] tablet 00:00: mouth as 00 needed Medical (edema). Branch Take 1 tablet two times daily PNV,calcium 2022-0 Yes 1{tbl} Take 1 [facility] aleksandr 72-iron-fol 7-14 tablet by [facility] ic acid 00:00: mouth [place] (WEST every Medical PLUS) 27 mg morning. [facility] ch iron- 1 mg tablet spironolact 2022-0 Yes [id number] 25mg Take 1 [facility] one 25 mg 7-14 tablet by [facility] o f tablet 00:00: mouth 00 daily. [facility] predniSONE 2022-0 Yes [id number] 5mg Take 1 [facility] 5 mg tablet 7-14 tablet by [facility] of 00:00: mouth 00 daily. [facility] rosuvastati 2022-0 Yes [id number] 5mg Take 1 [facility] n 5 mg 7-14 tablet by [facility] tablet 00:00: mouth at 00 bedtime. [facility] omeprazole 2022-0 Yes [id number] 20mg Take 1 [facility] 20 mg 7-14 capsule by [facility] capsule 00:00: mouth 00 daily. [facility] carvediloL 2022-0 Yes 25mg Take 1 [facility] 25 mg 7-14 tablet by [facility] tablet 00:00: mouth 2 (two) Medical times Branch daily with meals. furosemide 2022-0 Yes 20mg Take 1 [facility] 20 mg 7-14 tablet by [facility] tablet 00:00: mouth as 00 needed Medical (edema). Branch Take 1 tablet two times daily PNV,calcium 2022-0 Yes 1{tbl} Take 1 [facility] aleksandr 72-iron-fol 7-14 tablet by [facility] ic acid 00:00: mouth [place] ([facility] every Medical PLUS) 27 mg morning. [facility] ch iron- 1 mg tablet spironolact 0 Yes [id number] 25mg Take 1 [facility] one 25 mg 7-14 tablet by [facility] o f tablet 00:00: mouth [place] 00 daily. [facility] predniSONE 0 Yes [id number] 5mg Take 1 [facility] 5 mg tablet 7-14 tablet by [facility] of 00:00: mouth [place] 00 daily. [facility] rosuvastati Yes [id number] 5mg Take 1 [facility] n 5 mg 7-14 tablet by [facility] tablet 00:00: mouth at [place] 00 bedtime. [facility] omeprazole Yes [id number] 20mg Take 1 [facility] 20 mg 7-14 capsule by [facility] capsule 00:00: mouth [place] 00 daily. [facility] carvediloL Yes 25mg Take 1 [facility] 25 mg 7-14 tablet by [facility] tablet 00:00: mouth 2 [place] 00 (two) Medical times Branch daily with meals. furosemide Yes 20mg Take 1 [facility] 20 mg 7-14 tablet by [facility] tablet 00:00: mouth as [place] 00 needed Medical (edema). Branch Take 1 tablet two times daily PNV,calcium Yes 1{tbl} Take 1 [facility] aleksandr 72-iron-fol 7-14 tablet by [facility] ic acid 00:00: mouth [place] ([facility] 00 every Medical PLUS) 27 mg morning. [facility] ch iron- 1 mg tablet spironolact Yes [id number] 25mg Take 1 [facility] one 25 mg 7-14 tablet by [facility] o f tablet 00:00: mouth [place] 00 daily. [facility] predniSONE 0 Yes [id number] 5mg Take 1 [facility] 5 mg tablet 7-14 tablet by [facility] of 00:00: mouth [place] 00 daily. [facility] rosuvastati 0 Yes [id number] 5mg Take 1 [facility] n 5 mg 7-14 tablet by [facility] of tablet 00:00: mouth at [place] 00 bedtime. [facility] omeprazole 2022-0 Yes [id number] 20mg Take 1 [facility] 20 mg 7-14 capsule by [facility] capsule 00:00: mouth [place] 00 daily. [facility] carvediloL 0 Yes 25mg Take 1 [facility] 25 mg 7-14 tablet by [facility] tablet 00:00: mouth 2 (two) Medical times Branch daily with meals. furosemide 2022-0 Yes 20mg Take 1 [facility] 20 mg 7-14 tablet by [facility] tablet 00:00: mouth as 00 needed Medical (edema). Branch Take 1 tablet two times daily PNV,calcium 2022-0 Yes 1{tbl} Take 1 [facility] ale[facility]r 72-iron-fol 7-14 tablet by [facility] ic acid 00:00: mouth [place] (WE[facility] every Medical PLUS) 27 mg morning. [facility] ch iron- 1 mg tablet spironolact 2022-0 Yes [id number] 25mg Take 1 [facility] one 25 mg 7-14 tablet by [facility] o f tablet 00:00: mouth 00 daily. [facility] predniSONE 2022-0 Yes [id number] 5mg Take 1 [facility] 5 mg tablet 7-14 tablet by [facility] of 00:00: mouth 00 daily. [facility] rosuvastati 2022-0 Yes [id number] 5mg Take 1 [facility] n 5 mg 7-14 tablet by [facility] tablet 00:00: mouth at [place] 00 bedtime. [facility] omeprazole 2022-0 Yes [id number] 20mg Take 1 [facility] 20 mg 7-14 capsule by [facility] capsule 00:00: mouth 00 daily. [facility] carvediloL 2022-0 Yes 25mg Take 1 [facility] 25 mg 7-14 tablet by [facility] tablet 00:00: mouth 2 (two) Medical times Branch daily with meals. furosemide 2022-0 Yes 20mg Take 1 [facility] 20 mg 7-14 tablet by [facility] tablet 00:00: mouth [place] 00 needed Medical (edema). Branch Take 1 tablet two times daily PNV,calcium 2022-0 Yes 1{tbl} Take 1 [facility] aleks[facility]r 72-iron-fol 7-14 tablet by [facility] ic acid 00:00: mouth [place] (WE[facility] every Medical PLUS) 27 mg morning. [facility] ch iron- 1 mg tablet spironolact 2022-0 Yes [id number] 25mg Take 1 [facility] one 25 mg 7-14 tablet by [facility] o f tablet 00:00: mouth [place] 00 daily. [facility] predniSONE 2022-0 Yes [id number] 5mg Take 1 [facility] 5 mg tablet 7-14 tablet by [facility] of 00:00: mouth [place] 00 daily. [facility] rosuvastati 2022-0 Yes [id number] 5mg Take 1 [facility] n 5 mg 7-14 tablet by [facility] of tablet 00:00: mouth at [place] 00 bedtime. [facility] omeprazole 2022-0 Yes [id number] 20mg Take 1 [facility] 20 mg 7-14 capsule by [facility] capsule 00:00: mouth [place] 00 daily. [facility] carvediloL 2022-0 Yes 25mg Take 1 [facility] 25 mg 7-14 tablet by [facility] tablet 00:00: mouth 2 (two) Medical times Branch daily with meals. furosemide 2022-0 Yes 20mg Take 1 [facility] 20 mg 7-14 tablet by [facility] tablet 00:00: mouth as needed Medical (edema). Branch Take 1 tablet two times daily PNV,calcium 2022-0 Yes 1{tbl} Take 1 [facility] ale[facility] 72-iron-fol 7-14 tablet by [facility] ic acid 00:00: mouth ([facility] 00 every Medical PLUS) 27 mg morning. [facility] ch iron- 1 mg tablet spironolact 2022-0 Yes [id number] 25mg Take 1 [facility] one 25 mg 7-14 tablet by [facility] o f tablet 00:00: mouth 00 daily. [facility] predniSONE 2022-0 Yes [id number] 5mg Take 1 [facility] 5 mg tablet 7-14 tablet by [facility] of 00:00: mouth 00 daily. [facility] rosuvastati 2022-0 Yes [id number] 5mg Take 1 [facility] n 5 mg 7-14 tablet by [facility] tablet 00:00: mouth at [place] 00 bedtime. [facility] omeprazole 2022-0 Yes [id number] 20mg Take 1 [facility] 20 mg 7-14 capsule by [facility] capsule 00:00: mouth 00 daily. [facility] carvediloL 2022-0 Yes 25mg Take 1 [facility] 25 mg 7-14 tablet by [facility] tablet 00:00: mouth 2 (two) Medical times Branch daily with meals. furosemide 2022-0 Yes 20mg Take 1 [facility] 20 mg 7-14 tablet by [facility] tablet 00:00: mouth as 00 needed Medical (edema). Branch Take 1 tablet two times daily PNV,calcium 2022-0 Yes 1{tbl} Take 1 [facility] ale[facility]r 72-iron-fol 7-14 tablet by [facility] ic acid 00:00: mouth [place] (WEST[facility] 00 every Medical PLUS) 27 mg morning. Bran ch iron- 1 mg tablet spironolact 0 Yes [id number] 25mg Take 1 [facility] one 25 mg 7-14 tablet by [facility] o f tablet 00:00: mouth [place] 00 daily. [facility] predniSONE 2022-0 Yes [id number] 5mg Take 1 [facility] 5 mg tablet 7-14 tablet by [facility] of 00:00: mouth [place] 00 daily. [facility] rosuvastati Yes [id number] 5mg Take 1 [facility] n 5 mg 7-14 tablet by [facility] tablet 00:00: mouth at [place] 00 bedtime. [facility] omeprazole 0 Yes [id number] 20mg Take 1 [facility] 20 mg 7-14 capsule by [facility] capsule 00:00: mouth [place] 00 daily. [facility] carvediloL 0 Yes 25mg Take 1 [facility] 25 mg 7-14 tablet by [facility] tablet 00:00: mouth 2 [place] 00 (two) Medical times Branch daily with meals. furosemide 0 Yes 20mg Take 1 [facility] 20 mg 7-14 tablet by [facility] of tablet 00:00: mouth as [place] 00 needed Medical (edema). Branch Take 1 tablet two times daily PNV,calcium 0 Yes 1{tbl} Take 1 [facility] aleksandr 72-iron-fol 7-14 tablet by [facility] of ic acid 00:00: mouth [place] (WE[facility] 00 every Medical PLUS) 27 mg morning. Bran ch iron- 1 mg tablet spironolact 0 Yes [id number] 25mg Take 1 [facility] one 25 mg 7-14 tablet by [facility] o f tablet 00:00: mouth [place] 00 daily. [facility] predniSONE 2022-0 Yes [id number] 5mg Take 1 [facility] 5 mg tablet 7-14 tablet by [facility] of 00:00: mouth [place] 00 daily. [facility] rosuvastati 0 Yes [id number] 5mg Take 1 [facility] n 5 mg 7-14 tablet by [facility] of tablet 00:00: mouth at [place] 00 bedtime. [facility] carvediloL 2022-0 Yes 25mg Take 1 [facility] 25 mg 7-14 tablet by [facility] tablet 00:00: mouth 2 [place] 00 (two) Medical times Branch daily with meals. furosemide 2022-0 Yes 20mg Take 1 [facility] 20 mg 7-14 tablet by [facility] tablet 00:00: mouth as [place] 00 needed Medical (edema). Branch Take 1 tablet two times daily PNV,calcium 3-0 Yes 1{tbl} Take 1 [facility] ale[facility]r 72-iron-fol 7-14 tablet by [facility] of ic acid 00:00: mouth [place] (WEST[facility] every Medical PLUS) 27 mg morning. Bran ch iron- 1 mg tablet spironolact 2022-0 Yes [id number] 25mg Take 1 [facility] one 25 mg 7-14 tablet by [facility] o f tablet 00:00: mouth [place] 00 daily. [facility] predniSONE 2022-0 Yes [id number] 5mg Take 1 [facility] 5 mg tablet 7-14 tablet by [facility] of 00:00: mouth [place] 00 daily. [facility] rosuvastati 2022-0 Yes [id number] 5mg Take 1 [facility] n 5 mg 7-14 tablet by [facility] of tablet 00:00: mouth at [place] 00 bedtime. [facility] carvediloL 2022-0 Yes 25mg Take 1 [facility] 25 mg 7-14 tablet by [facility] of tablet 00:00: mouth 2 (two) Medical times Branch daily with meals. furosemide 2022-0 Yes 20mg Take 1 [facility] 20 mg 7-14 tablet by [facility] tablet 00:00: mouth as [place] 00 needed Medical (edema). Branch Take 1 tablet two times daily PNV,calcium 2022-0 Yes 1{tbl} Take 1 [facility] ale[facility] 72-iron-fol 7-14 tablet by [facility] ic acid 00:00: mouth [place] (WEST[facility] 00 every Medical PLUS) 27 mg morning. Bran ch iron- 1 mg tablet spironolact 2022-0 Yes [id number] 25mg Take 1 [facility] one 25 mg 7-14 tablet by [facility] o f tablet 00:00: mouth [place] 00 daily. [facility] predniSONE 2022-0 Yes [id number] 5mg Take 1 [facility] 5 mg tablet 7-14 tablet by [facility] of 00:00: mouth [place] 00 daily. [facility] rosuvastati 2022-0 Yes [id number] 5mg Take 1 [facility] n 5 mg 7-14 tablet by [facility] of tablet 00:00: mouth at [place] 00 bedtime. [facility] carvediloL 2022-0 Yes 25mg Take 1 [facility] 25 mg 7-14 tablet by [facility] tablet 00:00: mouth 2 00 (two) Medical times Branch daily with meals. furosemide 2022-0 Yes 20mg Take 1 [facility] 20 mg 7-14 tablet by [facility] tablet 00:00: mouth as 00 needed Medical (edema). Branch Take 1 tablet two times daily PNV,calcium 2022-0 Yes 1{tbl} Take 1 [facility] ale[facility]r 72-iron-fol 7-14 tablet by [facility] of ic acid 00:00: mouth [place] (WESTAB every Medical PLUS) 27 mg morning. Bran ch iron- 1 mg tablet spironolact 2022-0 Yes [id number] 25mg Take 1 [facility] one 25 mg 7-14 tablet by [facility] o f tablet 00:00: mouth [place] 00 daily. [facility] predniSONE 2022-0 Yes [id number] 5mg Take 1 [facility] 5 mg tablet 7-14 tablet by [facility] of 00:00: mouth [place] 00 daily. [facility] rosuvastati 2022-0 Yes [id number] 5mg Take 1 [facility] n 5 mg 7-14 tablet by [facility] of tablet 00:00: mouth at [place] 00 bedtime. [facility] carvediloL 2022-0 Yes 25mg Take 1 [facility] 25 mg 7-14 tablet by [facility] tablet 00:00: mouth 2 (two) Medical times Branch daily with meals. furosemide 2022-0 Yes 20mg Take 1 [facility] 20 mg 7-14 tablet by [facility] tablet 00:00: mouth as [place] 00 needed Medical (edema). Branch Take 1 tablet two times daily PNV,calcium 2022-0 Yes 1{tbl} Take 1 [facility] ale[facility] 72-iron-fol 7-14 tablet by [facility] ic acid 00:00: mouth [place] (WEST[facility] 00 every Medical PLUS) 27 mg morning. Bran ch iron- 1 mg tablet spironolact 2022-0 Yes [id number] 25mg Take 1 [facility] one 25 mg 7-14 tablet by [facility] o f tablet 00:00: mouth [place] 00 daily. [facility] predniSONE 2022-0 Yes [id number] 5mg Take 1 [facility] 5 mg tablet 7-14 tablet by [facility] of 00:00: mouth [place] 00 daily. [facility] rosuvastati 2022-0 Yes [id number] 5mg Take 1 [facility] n 5 mg 7-14 tablet by [facility] of tablet 00:00: mouth at [place] 00 bedtime. [facility] carvediloL 2022-0 Yes 25mg Take 1 [facility] 25 mg 7-14 tablet by [facility] tablet 00:00: mouth 2 (two) Medical times Branch daily with meals. furosemide 3-0 Yes 20mg Take 1 [facility] 20 mg 7-14 tablet by [facility] tablet 00:00: mouth as [place] 00 needed Medical (edema). Branch Take 1 tablet two times daily spironolact 2022-0 Yes [id number] 25mg Take 1 [facility] one 25 mg 7-14 tablet by [facility] o f tablet 00:00: mouth [place] 00 daily. [facility] predniSONE 2022-0 Yes [id number] 5mg Take 1 [facility] 5 mg tablet 7-14 tablet by [facility] of 00:00: mouth [place] 00 daily. [facility] rosuvastati 2022-0 Yes [id number] 5mg Take 1 [facility] n 5 mg 7-14 tablet by [facility] of tablet 00:00: mouth at [place] 00 bedtime. [facility] carvediloL 2022-0 Yes 25mg Take 1 [facility] 25 mg 7-14 tablet by [facility] of tablet 00:00: mouth 2 (two) Medical times Branch daily with meals. furosemide 3-0 Yes 20mg Take 1 [facility] 20 mg 7-14 tablet by [facility] of tablet 00:00: mouth as 00 needed Medical (edema). Branch Take 1 tablet two times daily spironolact 2022-0 Yes [id number] 25mg Take 1 [facility] one 25 mg 7-14 tablet by [facility] o f tablet 00:00: mouth [place] 00 daily. [facility] predniSONE 3-0 Yes [id number] 5mg Take 1 [facility] 5 mg tablet 7-14 tablet by [facility] of 00:00: mouth [place] 00 daily. [facility] rosuvastati 2022-0 Yes [id number] 5mg Take 1 [facility] n 5 mg 7-14 tablet by [facility] of tablet 00:00: mouth at [place] 00 bedtime. [facility] carvediloL 2022-0 Yes 25mg Take 1 [facility] 25 mg 7-14 tablet by [facility] of tablet 00:00: mouth 2 (two) Medical times Branch daily with meals. furosemide 2023-0 Yes 20mg Take 1 [facility] 20 mg 7-14 tablet by [facility] tablet 00:00: mouth as [place] 00 needed Medical (edema). Branch Take 1 tablet two times daily spironolact 2023-0 Yes [id number] 25mg Take 1 [facility] one 25 mg 7-14 tablet by [facility] o f tablet 00:00: mouth 00 daily. [facility] predniSONE 2023-0 Yes [id number] 5mg Take 1 [facility] 5 mg tablet 7-14 tablet by [facility] of 00:00: mouth 00 daily. [facility] rosuvastati 3-0 Yes [id number] 5mg Take 1 [facility] n 5 mg 7-14 tablet by [facility] of tablet 00:00: mouth at 00 bedtime. [facility] carvediloL 3-0 Yes 25mg Take 1 [facility] 25 mg 7-14 tablet by [facility] tablet 00:00: mouth (two) Medical times Branch daily with meals. furosemide 2023-0 Yes 20mg Take 1 [facility] 20 mg 7-14 tablet by [facility] tablet 00:00: mouth as 00 needed Medical (edema). Branch Take 1 tablet two times daily spironolact 2023-0 Yes [id number] 25mg Take 1 [facility] one 25 mg 7-14 tablet by [facility] o f tablet 00:00: mouth 00 daily. [facility] predniSONE 2023-0 Yes [id number] 5mg Take 1 [facility] 5 mg tablet 7-14 tablet by [facility] of 00:00: mouth 00 daily. [facility] rosuvastati 3-0 Yes [id number] 5mg Take 1 [facility] n 5 mg 7-14 tablet by [facility] of tablet 00:00: mouth at 00 bedtime. [facility] carvediloL 2023-0 Yes 25mg Take 1 [facility] 25 mg 7-14 tablet by [facility] tablet 00:00: mouth 2 (two) Medical times Branch daily with meals. furosemide 2023-0 Yes 20mg Take 1 [facility] 20 mg 7-14 tablet by [facility] tablet 00:00: mouth as 00 needed Medical (edema). Branch Take 1 tablet two times daily spironolact 2022-0 Yes [id number] 25mg Take 1 [facility] one 25 mg 7-14 tablet by [facility] o f tablet 00:00: mouth [place] 00 daily. [facility] predniSONE 2022-0 Yes [id number] 5mg Take 1 [facility] 5 mg tablet 7-14 tablet by [facility] of 00:00: mouth [place] 00 daily. [facility] rosuvastati 2022-0 Yes [id number] 5mg Take 1 [facility] n 5 mg 7-14 tablet by [facility] of tablet 00:00: mouth at [place] 00 bedtime. [facility] carvediloL 2022-0 Yes 25mg Take 1 [facility] 25 mg 7-14 tablet by [facility] tablet 00:00: mouth 2 00 (two) Medical times Branch daily with meals. furosemide 2022-0 Yes 20mg Take 1 [facility] 20 mg 7-14 tablet by [facility] tablet 00:00: mouth as [place] 00 needed Medical (edema). Branch Take 1 tablet two times daily spironolact 2022-0 Yes [id number] 25mg Take 1 [facility] one 25 mg 7-14 tablet by [facility] o f tablet 00:00: mouth [place] 00 daily. [facility] predniSONE 2022-0 Yes [id number] 5mg Take 1 [facility] 5 mg tablet 7-14 tablet by [facility] of 00:00: mouth [place] 00 daily. [facility] rosuvastati 2022-0 Yes [id number] 5mg Take 1 [facility] n 5 mg 7-14 tablet by [facility] of tablet 00:00: mouth at [place] 00 bedtime. [facility] carvediloL 2022-0 Yes 25mg Take 1 [facility] 25 mg 7-14 tablet by [facility] tablet 00:00: mouth 2 [place] 00 (two) Medical times Branch daily with meals. furosemide 3-0 Yes 20mg Take 1 [facility] 20 mg 7-14 tablet by [facility] tablet 00:00: mouth as [place] 00 needed Medical (edema). Branch Take 1 tablet two times daily spironolact 3-0 Yes [id number] 25mg Take 1 [facility] one 25 mg 7-14 tablet by [facility] o f tablet 00:00: mouth [place] 00 daily. [facility] predniSONE 3-0 Yes [id number] 5mg Take 1 [facility] 5 mg tablet 7-14 tablet by [facility] of 00:00: mouth [place] 00 daily. [facility] rosuvastati 3-0 Yes [id number] 5mg Take 1 [facility] n 5 mg 7-14 tablet by [facility] of tablet 00:00: mouth at [place] 00 bedtime. [facility] carvediloL 2022-0 Yes 25mg Take 1 [facility] 25 mg 7-14 tablet by [facility] tablet 00:00: mouth 2 00 (two) Medical times Branch daily with meals. furosemide 2023-0 Yes 20mg Take 1 [facility] 20 mg 7-14 tablet by [facility] tablet 00:00: mouth as [place] 00 needed Medical (edema). Branch Take 1 tablet two times daily spironolact 3-0 Yes [id number] 25mg Take 1 [facility] one 25 mg 7-14 tablet by [facility] o f tablet 00:00: mouth [place] 00 daily. [facility] predniSONE 2022-0 Yes [id number] 5mg Take 1 [facility] 5 mg tablet 7-14 tablet by [facility] of 00:00: mouth [place] 00 daily. [facility] rosuvastati 2022-0 Yes [id number] 5mg Take 1 [facility] n 5 mg 7-14 tablet by [facility] of tablet 00:00: mouth at [place] 00 bedtime. [facility] carvediloL 2022-0 Yes 25mg Take 1 [facility] 25 mg 7-14 tablet by [facility] tablet 00:00: mouth 2 (two) Medical times Branch daily with meals. furosemide 3-0 Yes 20mg Take 1 [facility] 20 mg 7-14 tablet by [facility] of tablet 00:00: mouth as [place] 00 needed Medical (edema). Branch Take 1 tablet two times daily spironolact 3-0 Yes [id number] 25mg Take 1 [facility] one 25 mg 7-14 tablet by [facility] o f tablet 00:00: mouth [place] 00 daily. [facility] predniSONE 3-0 Yes [id number] 5mg Take 1 [facility] 5 mg tablet 7-14 tablet by [facility] of 00:00: mouth [place] 00 daily. [facility] rosuvastati 3-0 Yes [id number] 5mg Take 1 [facility] n 5 mg 7-14 tablet by [facility] of tablet 00:00: mouth at [place] 00 bedtime. [facility] carvediloL 3-0 Yes 25mg Take 1 [facility] 25 mg 7-14 tablet by [facility] of tablet 00:00: mouth 2 [place] 00 (two) Medical times Branch daily with meals. furosemide 2023-0 Yes 20mg Take 1 [facility] 20 mg 7-14 tablet by [facility] of tablet 00:00: mouth as 00 needed Medical (edema). Branch Take 1 tablet two times daily spironolact 2023-0 Yes [id number] 25mg Take 1 [facility] one 25 mg 7-14 tablet by [facility] o f tablet 00:00: mouth 00 daily. [facility] predniSONE 2023-0 Yes [id number] 5mg Take 1 [facility] 5 mg tablet 7-14 tablet by [facility] of 00:00: mouth 00 daily. [facility] rosuvastati 2023-0 Yes [id number] 5mg Take 1 [facility] n 5 mg 7-14 tablet by [facility] of tablet 00:00: mouth at bedtime. Medical [facility] carvediloL 2023-0 Yes 25mg Take 1 [facility] 25 mg 7-14 tablet by [facility] tablet 00:00: mouth (two) Medical times Branch daily with meals. furosemide 2023-0 Yes 20mg Take 1 [facility] 20 mg 7-14 tablet by [facility] of tablet 00:00: mouth as 00 needed Medical (edema). Branch Take 1 tablet two times daily spironolact 3-0 Yes [id number] 25mg Take 1 [facility] one 25 mg 7-14 tablet by [facility] o f tablet 00:00: mouth 00 daily. [facility] predniSONE 3-0 Yes [id number] 5mg Take 1 [facility] 5 mg tablet 7-14 tablet by [facility] of 00:00: mouth 00 daily. [facility] rosuvastati 2023-0 Yes [id number] 5mg Take 1 [facility] n 5 mg 7-14 tablet by [facility] of tablet 00:00: mouth at bedtime. [facility] carvediloL 2023-0 Yes 25mg Take 1 [facility] 25 mg 7-14 tablet by [facility] of tablet 00:00: mouth 2 (two) Medical times Branch daily with meals. furosemide 2023-0 Yes 20mg Take 1 [facility] 20 mg 7-14 tablet by [facility] of tablet 00:00: mouth as 00 needed Medical (edema). Branch Take 1 tablet two times daily spironolact 2023-0 Yes [id number] 25mg Take 1 [facility] one 25 mg 7-14 tablet by [facility] o f tablet 00:00: mouth [place] 00 daily. [facility] predniSONE 2022-0 Yes [id number] 5mg Take 1 [facility] 5 mg tablet 7-14 tablet by [facility] of 00:00: mouth [place] 00 daily. [facility] rosuvastati 2022-0 Yes [id number] 5mg Take 1 [facility] n 5 mg 7-14 tablet by [facility] of tablet 00:00: mouth at [place] 00 bedtime. [facility] carvediloL 2022-0 Yes 25mg Take 1 [facility] 25 mg 7-14 tablet by [facility] of tablet 00:00: mouth 2 00 (two) Medical times Branch daily with meals. furosemide 2022-0 Yes 20mg Take 1 [facility] 20 mg 7-14 tablet by [facility] of tablet 00:00: mouth as [place] 00 needed Medical (edema). Branch Take 1 tablet two times daily spironolact 2022-0 Yes [id number] 25mg Take 1 [facility] one 25 mg 7-14 tablet by [facility] o f tablet 00:00: mouth [place] 00 daily. [facility] predniSONE 2022-0 Yes [id number] 5mg Take 1 [facility] 5 mg tablet 7-14 tablet by [facility] of 00:00: mouth [place] 00 daily. [facility] rosuvastati 2022-0 Yes [id number] 5mg Take 1 [facility] n 5 mg 7-14 tablet by [facility] of tablet 00:00: mouth at [place] 00 bedtime. [facility] carvediloL 2022-0 Yes 25mg Take 1 [facility] 25 mg 7-14 tablet by [facility] of tablet 00:00: mouth 2 (two) Medical times Branch daily with meals. furosemide 2022-0 Yes 20mg Take 1 [facility] 20 mg 7-14 tablet by [facility] of tablet 00:00: mouth as [place] 00 needed Medical (edema). Branch Take 1 tablet two times daily spironolact 2022-0 Yes [id number] 25mg Take 1 [facility] one 25 mg 7-14 tablet by [facility] o f tablet 00:00: mouth [place] 00 daily. [facility] predniSONE 2022-0 Yes [id number] 5mg Take 1 [facility] 5 mg tablet 7-14 tablet by [facility] of 00:00: mouth [place] 00 daily. [facility] rosuvastati 2022-0 Yes [id number] 5mg Take 1 [facility] n 5 mg 7-14 tablet by [facility] of tablet 00:00: mouth at [place] 00 bedtime. [facility] carvediloL 0 Yes 25mg Take 1 [facility] 25 mg 7-14 tablet by [facility] of tablet 00:00: mouth 2 [place] 00 (two) Medical times Branch daily with meals. PNV,calcium 2022- No 1{tbl} Take 1 [facility] 72-iron-fol 7-14 10-31 tablet by it y of ic acid 00:00: 00:00 mouth [place] (WESTAB 00 :00 every Medical PLUS) 27 mg morning. Bran ch iron- 1 mg tablet omeprazole 2022- No [id number] 20mg Take 1 [facility] 20 mg 7-14 - capsule by [facility] of capsule 00:00: 00:00 mouth [place] 00 :00 daily. [facility] nystatin 2022- No [id number] Take 5 mL [facility] 100,000 7-11 07-19 by mouth 4 [facility] o f unit/mL 00:00: 04:59 (four) [place] suspension 00 :00 times Medical daily for Branch 7 days. nystatin 2022- No [id number] Take 5 mL [facility] 100,000 7-11 07-19 by mouth 4 ity o f unit/mL 00:00: 04:59 (four) [place] suspension 00 :00 times Medical daily for Branch 7 days. nystatin 2022- No [id number] Take 5 mL [facility] 100,000 7-11 07-19 by mouth 4 ity o f unit/mL 00:00: 04:59 (four) [place] suspension 00 :00 times Medical daily for Branch 7 days. nystatin 2022-0 2022- No [id number] Take 5 mL [facility] 100,000 7-11 07-19 by mouth 4 ity o f unit/mL 00:00: 04:59 (four) [place] suspension 00 :00 times Medical daily for Branch 7 days. nystatin 2022-0 2022- No [id number] Take 5 mL [facility] 100,000 7-11 07-19 by mouth 4 ity o f unit/mL 00:00: 04:59 (four) [place] suspension 00 :00 times Medical daily for Branch 7 days. nystatin 3-0 3- No [id number] Take 5 mL [facility] 100,000 7-11 07-19 by mouth 4 ity o f unit/mL 00:00: 04:59 (four) [place] suspension 00 :00 times Medical daily for Branch 7 days. nystatin 2022-0 3- No [id number] Take 5 mL [facility] 100,000 7-11 07-19 by mouth 4 ity o f unit/mL 00:00: 04:59 (four) [place] suspension 00 :00 times Medical daily for Branch 7 days. nystatin 2022-0 3- No [id number] Take 5 mL [facility] 100,000 7-11 07-19 by mouth 4 ity o f unit/mL 00:00: 04:59 (four) [place] suspension 00 :00 times Medical daily for Branch 7 days. nystatin 2022-0 3- No [id number] Take 5 mL [facility] 100,000 7-11 07-19 by mouth 4 ity o f unit/mL 00:00: 04:59 (four) [place] suspension 00 :00 times Medical daily for Branch 7 days. nystatin 2022-0 3- No [id number] Take 5 mL [facility] 100,000 7-11 07-19 by mouth 4 ity o f unit/mL 00:00: 04:59 (four) [place] suspension 00 :00 times Medical daily for Branch 7 days. nystatin 2022-0 3- No [id number] Take 5 mL [facility] 100,000 7-11 07-19 by mouth 4 ity o f unit/mL 00:00: 04:59 (four) [place] suspension 00 :00 times Medical daily for Branch 7 days. nystatin 2022-0 3- No [id number] Take 5 mL [facility] 100,000 7-11 07-19 by mouth 4 ity o f unit/mL 00:00: 04:59 (four) [place] suspension 00 :00 times Medical daily for Branch 7 days. nystatin 2022-0 3- No [id number] Take 5 mL [facility] 100,000 7-11 07-19 by mouth 4 ity o f unit/mL 00:00: 04:59 (four) [place] suspension 00 :00 times Medical daily for Branch 7 days. umeclidiniu Yes [id number] 1{puff} Inhale 1 [facility] m (INCRUSE 7-07 Puff ity of ELLIPTA) 00:00: daily. [place] [address] 00 Medical mcg/actuati Branch on DsDv umeclidiniu Yes [id number] 1{puff} Inhale 1 [facility] m (INCRUSE 7-07 Puff ity of ELLIPTA) 00:00: daily. [place] [address] 00 Medical mcg/actuati Branch on DsDv umeclidiniu Yes [id number] 1{puff} Inhale 1 [facility] m (INCRUSE 7-07 Puff ity of ELLIPTA) 00:00: daily. [place] [address] Medical mcg/actuati Branch on DsDv umeclidiniu Yes [id number] 1{puff} Inhale 1 [facility] m (INCRUSE 7-07 Puff ity of ELLIPTA) 00:00: daily. [place] [address] Medical mcg/actuati Branch on DsDv umeclidiniu Yes [id number] 1{puff} Inhale 1 [facility] m (INCRUSE 7-07 Puff ity of ELLIPTA) 00:00: daily. [place] [address] Medical mcg/actuati Branch on DsDv umeclidiniu Yes [id number] 1{puff} Inhale 1 [facility] m (INCRUSE 7-07 Puff ity of ELLIPTA) 00:00: daily. [place] [address] Medical mcg/actuati Branch on DsDv umeclidiniu Yes [id number] 1{puff} Inhale 1 [facility] m (INCRUSE 7-07 Puff ity of ELLIPTA) 00:00: daily. [place] [address].[facility] Medical mcg/actuati Branch on DsDv umeclidiniu Yes [id number] 1{puff} Inhale 1 [facility] m (INCRUSE 7-07 Puff ity of ELLIPTA) 00:00: daily. [place] [address].[facility] Medical mcg/actuati Branch on DsDv umeclidiniu Yes [id number] 1{puff} Inhale 1 [facility] m (INCRUSE 7-07 Puff ity of ELLIPTA) 00:00: daily. [place] [address] 00 Medical mcg/actuati Branch on DsDv umeclidiniu Yes [id number] 1{puff} Inhale 1 [facility] m (INCRUSE 7-07 Puff ity of ELLIPTA) 00:00: daily. [place] [address] 00 Medical mcg/actuati Branch on DsDv umeclidiniu Yes [id number] 1{puff} Inhale 1 [facility] m (INCRUSE 7-07 Puff ity of ELLIPTA) 00:00: daily. [place] [address] 00 Medical mcg/actuati Branch on DsDv umeclidiniu Yes [id number] 1{puff} Inhale 1 [facility] m (INCRUSE 7-07 Puff ity of ELLIPTA) 00:00: daily. [place] [address] Medical mcg/actuati Branch on DsDv umeclidiniu Yes [id number] 1{puff} Inhale 1 [facility] m (INCRUSE 7-07 Puff ity of ELLIPTA) 00:00: daily. [place] [address] Medical mcg/actuati Branch on DsDv umeclidiniu Yes [id number] 1{puff} Inhale 1 [facility] m (INCRUSE 7-07 Puff ity of ELLIPTA) 00:00: daily. [place] [address] Medical mcg/actuati Branch on DsDv umeclidiniu Yes [id number] 1{puff} Inhale 1 [facility] m (INCRUSE 7-07 Puff ity of ELLIPTA) 00:00: daily. [place] [address] 00 Medical mcg/actuati Branch on DsDv umeclidiniu 0 Yes [id number] 1{puff} Inhale 1 [facility] m (INCRUSE 7-07 Puff ity of ELLIPTA) 00:00: daily. [place] [address] 00 Medical mcg/actuati Branch on DsDv umeclidiniu 0 Yes [id number] 1{puff} Inhale 1 [facility] m (INCRUSE 7-07 Puff ity of ELLIPTA) 00:00: daily. [place] [address] Medical mcg/actuati Branch on DsDv umeclidiniu Yes [id number] 1{puff} Inhale 1 [facility] m (INCRUSE 7-07 Puff ity of ELLIPTA) 00:00: daily. [place] [address] Medical mcg/actuati Branch on DsDv umeclidiniu 0 Yes [id number] 1{puff} Inhale 1 [facility] m (INCRUSE 7-07 Puff ity of ELLIPTA) 00:00: daily. [place] [address] Medical mcg/actuati Branch on DsDv umeclidiniu 0 Yes [id number] 1{puff} Inhale 1 [facility] m (INCRUSE 7-07 Puff ity of ELLIPTA) 00:00: daily. [place] [address] Medical mcg/actuati Branch on DsDv umeclidiniu 0 Yes [id number] 1{puff} Inhale 1 [facility] m (INCRUSE 7-07 Puff ity of ELLIPTA) 00:00: daily. [place] [address] Medical mcg/actuati Branch on DsDv umeclidiniu 0 Yes [id number] 1{puff} Inhale 1 [facility] m (INCRUSE 7-07 Puff ity of ELLIPTA) 00:00: daily. [place] [address] Medical mcg/actuati Branch on DsDv umeclidiniu 0 Yes [id number] 1{puff} Inhale 1 [facility] m (INCRUSE 7-07 Puff ity of ELLIPTA) 00:00: daily. [place] [address] Medical mcg/actuati Branch on DsDv umeclidiniu 0 Yes [id number] 1{puff} Inhale 1 [facility] m (INCRUSE 7-07 Puff ity of ELLIPTA) 00:00: daily. [place] [address] Medical mcg/actuati Branch on DsDv umeclidiniu 0 Yes [id number] 1{puff} Inhale 1 [facility] m (INCRUSE 7-07 Puff ity of ELLIPTA) 00:00: daily. [place] [address] Medical mcg/actuati Branch on DsDv umeclidiniu Yes [id number] 1{puff} Inhale 1 [facility] m (INCRUSE 7-07 Puff ity of ELLIPTA) 00:00: daily. [place] [address] 00 Medical mcg/actuati Branch on DsDv umeclidiniu Yes [id number] 1{puff} Inhale 1 [facility] m (INCRUSE 7-07 Puff ity of ELLIPTA) 00:00: daily. [place] [address] 00 Medical mcg/actuati Branch on DsDv umeclidiniu Yes [id number] 1{puff} Inhale 1 [facility] m (INCRUSE 7-07 Puff ity of ELLIPTA) 00:00: daily. [place] [address] Medical mcg/actuati Branch on DsDv umeclidiniu Yes [id number] 1{puff} Inhale 1 [facility] m (INCRUSE 7-07 Puff ity of ELLIPTA) 00:00: daily. [place] [address] Medical mcg/actuati Branch on DsDv umeclidiniu Yes [id number] 1{puff} Inhale 1 [facility] m (INCRUSE 7-07 Puff ity of ELLIPTA) 00:00: daily. [place] [address] Medical mcg/actuati Branch on DsDv umeclidiniu Yes [id number] 1{puff} Inhale 1 [facility] m (INCRUSE 7-07 Puff ity of ELLIPTA) 00:00: daily. [place] [address] Medical mcg/actuati Branch on DsDv umeclidiniu Yes [id number] 1{puff} Inhale 1 [facility] m (INCRUSE 7-07 Puff ity of ELLIPTA) 00:00: daily. [place] [address] Medical mcg/actuati Branch on DsDv umeclidiniu Yes [id number] 1{puff} Inhale 1 [facility] m (INCRUSE 7-07 Puff ity of ELLIPTA) 00:00: daily. [place] [address] Medical mcg/actuati Branch on DsDv umeclidiniu Yes [id number] 1{puff} Inhale 1 [facility] m (INCRUSE 7-07 Puff ity of ELLIPTA) 00:00: daily. [place] [address] 00 Medical mcg/actuati Branch on DsDv umeclidiniu Yes [id number] 1{puff} Inhale 1 [facility] m (INCRUSE 7-07 Puff ity of ELLIPTA) 00:00: daily. [place] [address] 00 Medical mcg/actuati Branch on DsDv umeclidiniu Yes [id number] 1{puff} Inhale 1 [facility] m (INCRUSE 7-07 Puff ity of ELLIPTA) 00:00: daily. [place] [address] 00 Medical mcg/actuati Branch on DsDv umeclidiniu Yes [id number] 1{puff} Inhale 1 [facility] m (INCRUSE 7-07 Puff ity of ELLIPTA) 00:00: daily. [place] [address] Medical mcg/actuati Branch on DsDv umeclidiniu Yes [id number] 1{puff} Inhale 1 [facility] m (INCRUSE 7-07 Puff ity of ELLIPTA) 00:00: daily. [place] [address] Medical mcg/actuati Branch on DsDv umeclidiniu Yes [id number] 1{puff} Inhale 1 [facility] m (INCRUSE 7-07 Puff ity of ELLIPTA) 00:00: daily. [place] [address] Medical mcg/actuati Branch on DsDv umeclidiniu Yes [id number] 1{puff} Inhale 1 [facility] m (INCRUSE 7-07 Puff ity of ELLIPTA) 00:00: daily. [place] [address] 00 Medical mcg/actuati Branch on DsDv umeclidiniu 0 Yes [id number] 1{puff} Inhale 1 [facility] m (INCRUSE 7-07 Puff ity of ELLIPTA) 00:00: daily. [place] [address] 00 Medical mcg/actuati Branch on DsDv umeclidiniu 0 Yes [id number] 1{puff} Inhale 1 [facility] m (INCRUSE 7-07 Puff ity of ELLIPTA) 00:00: daily. [place] [address] Medical mcg/actuati Branch on DsDv umeclidiniu Yes [id number] 1{puff} Inhale 1 [facility] m (INCRUSE 7-07 Puff ity of ELLIPTA) 00:00: daily. [place] [address] Medical mcg/actuati Branch on DsDv umeclidiniu 0 Yes [id number] 1{puff} Inhale 1 [facility] m (INCRUSE 7-07 Puff ity of ELLIPTA) 00:00: daily. [place] [address] Medical mcg/actuati Branch on DsDv umeclidiniu 0 Yes [id number] 1{puff} Inhale 1 [facility] m (INCRUSE 7-07 Puff ity of ELLIPTA) 00:00: daily. [place] [address] Medical mcg/actuati Branch on DsDv umeclidiniu 0 Yes [id number] 1{puff} Inhale 1 [facility] m (INCRUSE 7-07 Puff ity of ELLIPTA) 00:00: daily. [place] [address] Medical mcg/actuati Branch on DsDv umeclidiniu 0 Yes [id number] 1{puff} Inhale 1 [facility] m (INCRUSE 7-07 Puff ity of ELLIPTA) 00:00: daily. [place] [address] Medical mcg/actuati Branch on DsDv umeclidiniu 0 Yes [id number] 1{puff} Inhale 1 [facility] m (INCRUSE 7-07 Puff ity of ELLIPTA) 00:00: daily. [place] [address] Medical mcg/actuati Branch on DsDv umeclidiniu 0 Yes [id number] 1{puff} Inhale 1 [facility] m (INCRUSE 7-07 Puff ity of ELLIPTA) 00:00: daily. [place] [address] Medical mcg/actuati Branch on DsDv umeclidiniu 0 Yes [id number] 1{puff} Inhale 1 [facility] m (INCRUSE 7-07 Puff ity of ELLIPTA) 00:00: daily. [place] [address] Medical mcg/actuati Branch on DsDv umeclidiniu Yes [id number] 1{puff} Inhale 1 [facility] m (INCRUSE 7-07 Puff ity of ELLIPTA) 00:00: daily. [place] [address] 00 Medical mcg/actuati Branch on DsDv umeclidiniu Yes [id number] 1{puff} Inhale 1 [facility] m (INCRUSE 7-07 Puff ity of ELLIPTA) 00:00: daily. [place] [address] 00 Medical mcg/actuati Branch on DsDv umeclidiniu Yes [id number] 1{puff} Inhale 1 [facility] m (INCRUSE 7-07 Puff ity of ELLIPTA) 00:00: daily. [place] [address] Medical mcg/actuati Branch on DsDv umeclidiniu Yes [id number] 1{puff} Inhale 1 [facility] m (INCRUSE 7-07 Puff ity of ELLIPTA) 00:00: daily. [place] [address] Medical mcg/actuati Branch on DsDv umeclidiniu Yes [id number] 1{puff} Inhale 1 [facility] m (INCRUSE 7-07 Puff ity of ELLIPTA) 00:00: daily. [place] [address] Medical mcg/actuati Branch on DsDv umeclidiniu Yes [id number] 1{puff} Inhale 1 [facility] m (INCRUSE 7-07 Puff ity of ELLIPTA) 00:00: daily. [place] [address] Medical mcg/actuati Branch on DsDv umeclidiniu Yes [id number] 1{puff} Inhale 1 [facility] m (INCRUSE 7-07 Puff ity of ELLIPTA) 00:00: daily. [place] [address] Medical mcg/actuati Branch on DsDv umeclidiniu Yes [id number] 1{puff} Inhale 1 [facility] m (INCRUSE 7-07 Puff ity of ELLIPTA) 00:00: daily. [place] [address].[facility] Medical mcg/actuati Branch on DsDv umeclidiniu Yes [id number] 1{puff} Inhale 1 [facility] m (INCRUSE 7-07 Puff ity of ELLIPTA) 00:00: daily. [place] [address]. 00 Medical mcg/actuati Branch on DsDv umeclidiniu 2022-0 Yes [id number] 1{puff} Inhale 1 [facility] m (INCRUSE 7-07 Puff ity of ELLIPTA) 00:00: daily. [place] [address]. 00 Medical mcg/actuati Branch on DsDv umeclidiniu 2022-0 Yes [id number] 1{puff} Inhale 1 [facility] m (INCRUSE 7-07 Puff ity of ELLIPTA) 00:00: daily. [place] [address]. 00 Medical mcg/actuati Branch on DsDv umeclidiniu 2022-0 Yes [id number] 1{puff} Inhale 1 [facility] m (INCRUSE 7-07 Puff ity of ELLIPTA) 00:00: daily. [place] [address] Medical mcg/actuati Branch on DsDv cycloSPORIN 2022-0 Yes [id number] 25mg Take 1 [facility] E 25 mg 6-23 capsule by ity of capsule 00:00: mouth [place] 00 every 12 Medical (twelve) Branch hours. cycloSPORIN 2023-0 Yes [id number] 25mg Take 1 [facility] E 25 mg 6-23 capsule by ity of capsule 00:00: mouth [place] 00 every 12 Medical (twelve) Branch hours. cycloSPORIN 2023-0 Yes [id number] 25mg Take 1 [facility] E 25 mg 6-23 capsule by ity of capsule 00:00: mouth [place] 00 every 12 Medical (twelve) Branch hours. cycloSPORIN 2023-0 Yes [id number] 25mg Take 1 [facility] E 25 mg 6-23 capsule by ity of capsule 00:00: mouth [place] 00 every 12 Medical (twelve) Branch hours. cycloSPORIN 2023-0 Yes [id number] 25mg Take 1 [facility] E 25 mg 6-23 capsule by ity of capsule 00:00: mouth [place] 00 every 12 Medical (twelve) Branch hours. cycloSPORIN 2023-0 Yes [id number] 25mg Take 1 [facility] E 25 mg 6-23 capsule by ity of capsule 00:00: mouth [place] 00 every 12 Medical (twelve) Branch hours. cycloSPORIN 2023-0 Yes [id number] 25mg Take 1 [facility] E 25 mg 6-23 capsule by ity of capsule 00:00: mouth [place] 00 every 12 Medical (twelve) Branch hours. cycloSPORIN 2023-0 Yes [id number] 25mg Take 1 [facility] E 25 mg 6-23 capsule by ity of capsule 00:00: mouth [place] 00 every 12 Medical (twelve) Branch hours. cycloSPORIN 2023-0 Yes [id number] 25mg Take 1 [facility] E 25 mg 6-23 capsule by ity of capsule 00:00: mouth [place] 00 every 12 Medical (twelve) Branch hours. cycloSPORIN 2023-0 Yes [id number] 25mg Take 1 [facility] E 25 mg 6-23 capsule by ity of capsule 00:00: mouth [place] 00 every 12 Medical (twelve) Branch hours. cycloSPORIN 2023-0 Yes [id number] 25mg Take 1 [facility] E 25 mg 6-23 capsule by ity of capsule 00:00: mouth [place] 00 every 12 Medical (twelve) Branch hours. cycloSPORIN 2023-0 Yes [id number] 25mg Take 1 [facility] E 25 mg 6-23 capsule by ity of capsule 00:00: mouth [place] 00 every 12 Medical (twelve) Branch hours. cycloSPORIN 2023-0 Yes [id number] 25mg Take 1 [facility] E 25 mg 6-23 capsule by ity of capsule 00:00: mouth [place] 00 every 12 Medical (twelve) Branch hours. cycloSPORIN 2023-0 Yes [id number] 25mg Take 1 [facility] E 25 mg 6-23 capsule by ity of capsule 00:00: mouth [place] 00 every 12 Medical (twelve) Branch hours. cycloSPORIN 2023-0 Yes [id number] 25mg Take 1 [facility] E 25 mg 6-23 capsule by ity of capsule 00:00: mouth [place] 00 every 12 Medical (twelve) Branch hours. cycloSPORIN 2023-0 Yes [id number] 25mg Take 1 [facility] E 25 mg 6-23 capsule by ity of capsule 00:00: mouth [place] 00 every 12 Medical (twelve) Branch hours. cycloSPORIN 2023-0 Yes [id number] 25mg Take 1 [facility] E 25 mg 6-23 capsule by ity of capsule 00:00: mouth [place] 00 every 12 Medical (twelve) Branch hours. cycloSPORIN 2023-0 Yes [id number] 25mg Take 1 [facility] E 25 mg 6-23 capsule by ity of capsule 00:00: mouth [place] 00 every 12 Medical (twelve) Branch hours. cycloSPORIN 2023-0 Yes [id number] 25mg Take 1 [facility] E 25 mg 6-23 capsule by ity of capsule 00:00: mouth [place] 00 every 12 Medical (twelve) Branch hours. cycloSPORIN 2023-0 Yes [id number] 25mg Take 1 [facility] E 25 mg 6-23 capsule by ity of capsule 00:00: mouth [place] 00 every 12 Medical (twelve) Branch hours. cycloSPORIN 2023-0 Yes [id number] 25mg Take 1 [facility] E 25 mg 6-23 capsule by ity of capsule 00:00: mouth [place] 00 every 12 Medical (twelve) Branch hours. cycloSPORIN 2023-0 Yes [id number] 25mg Take 1 [facility] E 25 mg 6-23 capsule by ity of capsule 00:00: mouth [place] 00 every 12 Medical (twelve) Branch hours. cycloSPORIN 2023-0 Yes [id number] 25mg Take 1 [facility] E 25 mg 6-23 capsule by ity of capsule 00:00: mouth [place] 00 every 12 Medical (twelve) Branch hours. cycloSPORIN 2023-0 Yes [id number] 25mg Take 1 [facility] E 25 mg 6-23 capsule by ity of capsule 00:00: mouth [place] 00 every 12 Medical (twelve) Branch hours. cycloSPORIN 2023-0 Yes [id number] 25mg Take 1 [facility] E 25 mg 6-23 capsule by ity of capsule 00:00: mouth [place] 00 every 12 Medical (twelve) Branch hours. cycloSPORIN 2023-0 Yes [id number] 25mg Take 1 [facility] E 25 mg 6-23 capsule by ity of capsule 00:00: mouth [place] 00 every 12 Medical (twelve) Branch hours. cycloSPORIN 2023-0 Yes [id number] 25mg Take 1 [facility] E 25 mg 6-23 capsule by ity of capsule 00:00: mouth [place] 00 every 12 Medical (twelve) Branch hours. cycloSPORIN 2023-0 Yes [id number] 25mg Take 1 [facility] E 25 mg 6-23 capsule by ity of capsule 00:00: mouth [place] 00 every 12 Medical (twelve) Branch hours. cycloSPORIN 2023-0 Yes [id number] 25mg Take 1 [facility] E 25 mg 6-23 capsule by ity of capsule 00:00: mouth [place] 00 every 12 Medical (twelve) Branch hours. cycloSPORIN 2023-0 Yes [id number] 25mg Take 1 [facility] E 25 mg 6-23 capsule by ity of capsule 00:00: mouth [place] 00 every 12 Medical (twelve) Branch hours. cycloSPORIN 2023-0 Yes [id number] 25mg Take 1 [facility] E 25 mg 6-23 capsule by ity of capsule 00:00: mouth [place] 00 every 12 Medical (twelve) Branch hours. cycloSPORIN 2023-0 Yes [id number] 25mg Take 1 [facility] E 25 mg 6-23 capsule by ity of capsule 00:00: mouth [place] 00 every 12 Medical (twelve) Branch hours. cycloSPORIN 2023-0 Yes [id number] 25mg Take 1 [facility] E 25 mg 6-23 capsule by ity of capsule 00:00: mouth [place] 00 every 12 Medical (twelve) Branch hours. cycloSPORIN 2023-0 Yes [id number] 25mg Take 1 [facility] E 25 mg 6-23 capsule by ity of capsule 00:00: mouth [place] 00 every 12 Medical (twelve) Branch hours. cycloSPORIN 2023-0 Yes [id number] 25mg Take 1 [facility] E 25 mg 6-23 capsule by ity of capsule 00:00: mouth [place] 00 every 12 Medical (twelve) Branch hours. cycloSPORIN 2023-0 Yes [id number] 25mg Take 1 [facility] E 25 mg 6-23 capsule by ity of capsule 00:00: mouth [place] 00 every 12 Medical (twelve) Branch hours. cycloSPORIN 2023-0 Yes [id number] 25mg Take 1 [facility] E 25 mg 6-23 capsule by ity of capsule 00:00: mouth [place] 00 every 12 Medical (twelve) Branch hours. cycloSPORIN 2023-0 Yes [id number] 25mg Take 1 [facility] E 25 mg 6-23 capsule by ity of capsule 00:00: mouth [place] 00 every 12 Medical (twelve) Branch hours. cycloSPORIN 2023-0 Yes [id number] 25mg Take 1 [facility] E 25 mg 6-23 capsule by ity of capsule 00:00: mouth [place] 00 every 12 Medical (twelve) Branch hours. cycloSPORIN 2023-0 Yes [id number] 25mg Take 1 [facility] E 25 mg 6-23 capsule by ity of capsule 00:00: mouth [place] 00 every 12 Medical (twelve) Branch hours. cycloSPORIN 2023-0 Yes [id number] 25mg Take 1 [facility] E 25 mg 6-23 capsule by ity of capsule 00:00: mouth [place] 00 every 12 Medical (twelve) Branch hours. cycloSPORIN 2023-0 Yes [id number] 25mg Take 1 [facility] E 25 mg 6-23 capsule by ity of capsule 00:00: mouth [place] 00 every 12 Medical (twelve) Branch hours. cycloSPORIN 2023-0 Yes [id number] 25mg Take 1 [facility] E 25 mg 6-23 capsule by ity of capsule 00:00: mouth [place] 00 every 12 Medical (twelve) Branch hours. cycloSPORIN 2023-0 Yes [id number] 25mg Take 1 [facility] E 25 mg 6-23 capsule by ity of capsule 00:00: mouth [place] 00 every 12 Medical (twelve) Branch hours. cycloSPORIN 2023-0 Yes [id number] 25mg Take 1 [facility] E 25 mg 6-23 capsule by ity of capsule 00:00: mouth [place] 00 every 12 Medical (twelve) Branch hours. cycloSPORIN 2023-0 Yes [id number] 25mg Take 1 [facility] E 25 mg 6-23 capsule by ity of capsule 00:00: mouth [place] 00 every 12 Medical (twelve) Branch hours. cycloSPORIN 2023-0 Yes [id number] 25mg Take 1 [facility] E 25 mg 6-23 capsule by ity of capsule 00:00: mouth [place] 00 every 12 Medical (twelve) Branch hours. cycloSPORIN 2023-0 Yes [id number] 25mg Take 1 [facility] E 25 mg 6-23 capsule by ity of capsule 00:00: mouth [place] 00 every 12 Medical (twelve) Branch hours. cycloSPORIN 2023-0 Yes [id number] 25mg Take 1 [facility] E 25 mg 6-23 capsule by ity of capsule 00:00: mouth [place] 00 every 12 Medical (twelve) Branch hours. cycloSPORIN 2023-0 Yes [id number] 25mg Take 1 [facility] E 25 mg 6-23 capsule by ity of capsule 00:00: mouth [place] 00 every 12 Medical (twelve) Branch hours. cycloSPORIN 2023-0 Yes [id number] 25mg Take 1 [facility] E 25 mg 6-23 capsule by ity of capsule 00:00: mouth [place] 00 every 12 Medical (twelve) Branch hours. cycloSPORIN 2023-0 Yes [id number] 25mg Take 1 [facility] E 25 mg 6-23 capsule by ity of capsule 00:00: mouth [place] 00 every 12 Medical (twelve) Branch hours. cycloSPORIN 2023-0 Yes [id number] 25mg Take 1 [facility] E 25 mg 6-23 capsule by ity of capsule 00:00: mouth [place] 00 every 12 Medical (twelve) Branch hours. cycloSPORIN 2023-0 Yes [id number] 25mg Take 1 [facility] E 25 mg 6-23 capsule by ity of capsule 00:00: mouth [place] 00 every 12 Medical (twelve) Branch hours. cycloSPORIN 2023-0 Yes [id number] 25mg Take 1 [facility] E 25 mg 6-23 capsule by ity of capsule 00:00: mouth [place] 00 every 12 Medical (twelve) Branch hours. cycloSPORIN 2023-0 Yes [id number] 25mg Take 1 [facility] E 25 mg 6-23 capsule by ity of capsule 00:00: mouth [place] 00 every 12 Medical (twelve) Branch hours. cycloSPORIN 2023-0 Yes [id number] 25mg Take 1 [facility] E 25 mg 6-23 capsule by ity of capsule 00:00: mouth [place] 00 every 12 Medical (twelve) Branch hours. cycloSPORIN 2023-0 Yes [id number] 25mg Take 1 [facility] E 25 mg 6-23 capsule by ity of capsule 00:00: mouth [place] 00 every 12 Medical (twelve) Branch hours. cycloSPORIN 2023-0 Yes [id number] 25mg Take 1 [facility] E 25 mg 6-23 capsule by ity of capsule 00:00: mouth [place] 00 every 12 Medical (twelve) Branch hours. cycloSPORIN 2023-0 Yes [id number] 25mg Take 1 [facility] E 25 mg 6-23 capsule by ity of capsule 00:00: mouth [place] 00 every 12 Medical (twelve) Branch hours. cycloSPORIN 2023-0 Yes [id number] 25mg Take 1 [facility] E 25 mg 6-23 capsule by ity of capsule 00:00: mouth [place] 00 every 12 Medical (twelve) Branch hours. cycloSPORIN 2023-0 Yes [id number] 25mg Take 1 [facility] E 25 mg 6-23 capsule by ity of capsule 00:00: mouth [place] 00 every 12 Medical (twelve) Branch hours. cycloSPORIN 2023-0 Yes [id number] 25mg Take 1 [facility] E 25 mg 6-23 capsule by ity of capsule 00:00: mouth [place] 00 every 12 Medical (twelve) Branch hours. cycloSPORIN 2023-0 Yes [id number] 25mg Take 1 [facility] E 25 mg 6-23 capsule by ity of capsule 00:00: mouth [place] 00 every 12 Medical (twelve) Branch hours. cycloSPORIN 2022-0 Yes [id number] 25mg Take 1 [facility] E 25 mg 6-23 capsule by ity of capsule 00:00: mouth [place] 00 every 12 Medical (twelve) Branch hours. calcitrioL 2022-0 Yes [id number] .25ug Take 1 [facility] 0.25 mcg 6-16 capsule by ity o f capsule 00:00: mouth [place] 00 daily. Medical Branch calcitrioL 2022-0 Yes [id number] .25ug Take 1 [facility] 0.25 mcg 6-16 capsule by ity o f capsule 00:00: mouth [place] 00 daily. Medical Branch calcitrioL 0 Yes [id number] .25ug Take 1 [facility] 0.25 mcg 6-16 capsule by ity o f capsule 00:00: mouth [place] 00 daily. Medical Branch calcitrioL 2022-0 Yes [id number] .25ug Take 1 [facility] 0.25 mcg 6-16 capsule by ity o f capsule 00:00: mouth [place] 00 daily. Medical Branch calcitrioL 0 Yes [id number] .25ug Take 1 [facility] 0.25 mcg 6-16 capsule by ity o f capsule 00:00: mouth [place] 00 daily. Medical Branch calcitrioL 0 Yes [id number] .25ug Take 1 [facility] 0.25 mcg 6-16 capsule by [facility] capsule 00:00: mouth [place] 00 daily. [facility] calcitrioL 2022-0 Yes [id number] .25ug Take 1 [facility] 0.25 mcg 6-16 capsule by [facility] capsule 00:00: mouth [place] 00 daily. [facility] calcitrioL 2022-0 Yes [id number] .25ug Take 1 [facility] 0.25 mcg 6-16 capsule by [facility] capsule 00:00: mouth [place] 00 daily. [facility] calcitrioL 2022-0 Yes [id number] .25ug Take 1 [facility] 0.25 mcg 6-16 capsule by [facility] capsule 00:00: mouth [place] 00 daily. [facility] calcitrioL 2022-0 Yes [id number] .25ug Take 1 [facility] 0.25 mcg 6-16 capsule by [facility] capsule 00:00: mouth [place] 00 daily. [facility] calcitrioL 2022-0 Yes [id number] .25ug Take 1 [facility] 0.25 mcg 6-16 capsule by [facility] capsule 00:00: mouth [place] 00 daily. [facility] calcitrioL 2022-0 Yes [id number] .25ug Take 1 [facility] 0.25 mcg 6-16 capsule by [facility] capsule 00:00: mouth [place] 00 daily. [facility] calcitrioL 2022-0 Yes [id number] .25ug Take 1 [facility] 0.25 mcg 6-16 capsule by [facility] capsule 00:00: mouth [place] 00 daily. [facility] calcitrioL 2022-0 Yes [id number] .25ug Take 1 [facility] 0.25 mcg 6-16 capsule by [facility] o f capsule 00:00: mouth [place] 00 daily. [facility] calcitrioL 2022-0 Yes [id number] .25ug Take 1 [facility] 0.25 mcg 6-16 capsule by [facility] o f capsule 00:00: mouth [place] 00 daily. [facility] calcitrioL 2022-0 Yes [id number] .25ug Take 1 [facility] 0.25 mcg 6-16 capsule by [facility] o f capsule 00:00: mouth [place] 00 daily. [facility] calcitrioL 2022-0 Yes [id number] .25ug Take 1 [facility] 0.25 mcg 6-16 capsule by [facility] o f capsule 00:00: mouth [place] 00 daily. [facility] calcitrioL 2022-0 Yes [id number] .25ug Take 1 [facility] 0.25 mcg 6-16 capsule by [facility] o f capsule 00:00: mouth [place] 00 daily. [facility] calcitrioL 2022-0 Yes [id number] .25ug Take 1 [facility] 0.25 mcg 6-16 capsule by ity o f capsule 00:00: mouth [place] 00 daily. [facility] calcitrioL 2022-0 Yes [id number] .25ug Take 1 [facility] 0.25 mcg 6-16 capsule by [facility] o f capsule 00:00: mouth [place] 00 daily. [facility] calcitrioL 2022-0 Yes [id number] .25ug Take 1 [facility] 0.25 mcg 6-16 capsule by [facility] o f capsule 00:00: mouth [place] 00 daily. [facility] calcitrioL 2022-0 Yes [id number] .25ug Take 1 [facility] 0.25 mcg 6-16 capsule by ity o f capsule 00:00: mouth [place] 00 daily. [facility] calcitrioL 2022-0 Yes [id number] .25ug Take 1 [facility] 0.25 mcg 6-16 capsule by ity o f capsule 00:00: mouth [place] 00 daily. [facility] calcitrioL 2022-0 Yes [id number] .25ug Take 1 [facility] 0.25 mcg 6-16 capsule by ity o f capsule 00:00: mouth [place] 00 daily. [facility] calcitrioL 2022-0 Yes [id number] .25ug Take 1 [facility] 0.25 mcg 6-16 capsule by [facility]y o f capsule 00:00: mouth [place] 00 daily. [facility] calcitrioL 2022-0 Yes [id number] .25ug Take 1 [facility] 0.25 mcg 6-16 capsule by [facility] o f capsule 00:00: mouth [place] 00 daily. [facility] calcitrioL 2022-0 Yes [id number] .25ug Take 1 [facility] 0.25 mcg 6-16 capsule by [facility] o f capsule 00:00: mouth [place] 00 daily. [facility] calcitrioL 2022-0 Yes [id number] .25ug Take 1 [facility] 0.25 mcg 6-16 capsule by [facility] o f capsule 00:00: mouth [place] 00 daily. [facility] calcitrioL 2022-0 Yes [id number] .25ug Take 1 [facility] 0.25 mcg 6-16 capsule by [facility] o f capsule 00:00: mouth [place] 00 daily. [facility] calcitrioL 2022-0 Yes [id number] .25ug Take 1 [facility] 0.25 mcg 6-16 capsule by [facility] o f capsule 00:00: mouth [place] 00 daily. [facility] calcitrioL 2022-0 Yes [id number] .25ug Take 1 [facility] 0.25 mcg 6-16 capsule by [facility] o f capsule 00:00: mouth [place] 00 daily. [facility] calcitrioL 2022-0 Yes [id number] .25ug Take 1 [facility] 0.25 mcg 6-16 capsule by [facility] o f capsule 00:00: mouth [place] 00 daily. [facility] calcitrioL 2022-0 Yes [id number] .25ug Take 1 [facility] 0.25 mcg 6-16 capsule by [facility] o f capsule 00:00: mouth [place] 00 daily. [facility] calcitrioL 2022-0 Yes [id number] .25ug Take 1 [facility] 0.25 mcg 6-16 capsule by [facility] o f capsule 00:00: mouth [place] 00 daily. [facility] calcitrioL 2022-0 Yes [id number] .25ug Take 1 [facility] 0.25 mcg 6-16 capsule by [facility] o f capsule 00:00: mouth [place] 00 daily. [facility] calcitrioL 2022-0 Yes [id number] .25ug Take 1 [facility] 0.25 mcg 6-16 capsule by [facility] o f capsule 00:00: mouth [place] 00 daily. [facility] calcitrioL 2022-0 Yes [id number] .25ug Take 1 [facility] 0.25 mcg 6-16 capsule by [facility] o f capsule 00:00: mouth [place] 00 daily. [facility] calcitrioL 2022-0 Yes [id number] .25ug Take 1 [facility] 0.25 mcg 6-16 capsule by [facility] o f capsule 00:00: mouth [place] 00 daily. [facility] calcitrioL 2022-0 Yes [id number] .25ug Take 1 [facility] 0.25 mcg 6-16 capsule by [facility] o f capsule 00:00: mouth [place] 00 daily. [facility] calcitrioL 2022-0 Yes [id number] .25ug Take 1 [facility] 0.25 mcg 6-16 capsule by [facility] o f capsule 00:00: mouth [place] 00 daily. [facility] calcitrioL 2022-0 Yes [id number] .25ug Take 1 [facility] 0.25 mcg 6-16 capsule by [facility] o f capsule 00:00: mouth [place] 00 daily. [facility] calcitrioL 2022-0 Yes [id number] .25ug Take 1 [facility] 0.25 mcg 6-16 capsule by [facility] o f capsule 00:00: mouth [place] 00 daily. [facility] calcitrioL 2022-0 Yes [id number] .25ug Take 1 [facility] 0.25 mcg 6-16 capsule by [facility] o f capsule 00:00: mouth [place] 00 daily. [facility] calcitrioL 2022-0 Yes [id number] .25ug Take 1 [facility] 0.25 mcg 6-16 capsule by [facility] o f capsule 00:00: mouth [place] 00 daily. [facility] calcitrioL 2022-0 Yes [id number] .25ug Take 1 [facility] 0.25 mcg 6-16 capsule by [facility] o f capsule 00:00: mouth [place] 00 daily. [facility] calcitrioL 2022-0 Yes [id number] .25ug Take 1 [facility] 0.25 mcg 6-16 capsule by [facility] o f capsule 00:00: mouth [place] 00 daily. [facility] calcitrioL 2022-0 Yes [id number] .25ug Take 1 [facility] 0.25 mcg 6-16 capsule by [facility] o f capsule 00:00: mouth [place] 00 daily. [facility] calcitrioL 2022-0 Yes [id number] .25ug Take 1 [facility] 0.25 mcg 6-16 capsule by [facility] o f capsule 00:00: mouth [place] 00 daily. [facility] calcitrioL 2022-0 Yes [id number] .25ug Take 1 [facility] 0.25 mcg 6-16 capsule by [facility] o f capsule 00:00: mouth [place] 00 daily. [facility] calcitrioL 2022-0 Yes [id number] .25ug Take 1 [facility] 0.25 mcg 6-16 capsule by [facility] o f capsule 00:00: mouth [place] 00 daily. [facility] calcitrioL 2022-0 Yes [id number] .25ug Take 1 [facility] 0.25 mcg 6-16 capsule by [facility] o f capsule 00:00: mouth [place] 00 daily. [facility] calcitrioL 0 Yes [id number] .25ug Take 1 [facility] 0.25 mcg 6-16 capsule by [facility] o f capsule 00:00: mouth [place] 00 daily. [facility] calcitrioL 0 Yes [id number] .25ug Take 1 [facility] 0.25 mcg 6-16 capsule by [facility] o f capsule 00:00: mouth [place] 00 daily. [facility] calcitrioL 0 Yes [id number] .25ug Take 1 [facility] 0.25 mcg 6-16 capsule by [facility] o f capsule 00:00: mouth [place] 00 daily. [facility] calcitrioL 2022-0 Yes [id number] .25ug Take 1 [facility] 0.25 mcg 6-16 capsule by [facility] o f capsule 00:00: mouth [place] 00 daily. [facility] calcitrioL 2022-0 Yes [id number] .25ug Take 1 [facility] 0.25 mcg 6-16 capsule by [facility] o f capsule 00:00: mouth [place] 00 daily. [facility] calcitrioL 2022-0 Yes [id number] .25ug Take 1 [facility] 0.25 mcg 6-16 capsule by [facility] o f capsule 00:00: mouth [place] 00 daily. [facility] calcitrioL 2022-0 Yes [id number] .25ug Take 1 [facility] 0.25 mcg 6-16 capsule by [facility] o f capsule 00:00: mouth [place] 00 daily. [facility] calcitrioL 2022-0 Yes [id number] .25ug Take 1 [facility] 0.25 mcg 6-16 capsule by [facility] o f capsule 00:00: mouth [place] 00 daily. [facility] calcitrioL 2022-0 Yes [id number] .25ug Take 1 [facility] 0.25 mcg 6-16 capsule by [facility] o f capsule 00:00: mouth [place] 00 daily. [facility] calcitrioL 2022-0 Yes [id number] .25ug Take 1 [facility] 0.25 mcg 6-16 capsule by [facility] o f capsule 00:00: mouth [place] 00 daily. [facility] calcitrioL 2022-0 Yes [id number] .25ug Take 1 [facility] 0.25 mcg 6-16 capsule by [facility] o f capsule 00:00: mouth [place] 00 daily. [facility] calcitrioL 2022-0 Yes [id number] .25ug Take 1 [facility] 0.25 mcg 6-16 capsule by [facility] o f capsule 00:00: mouth [place] 00 daily. [facility] calcitrioL 2022-0 Yes [id number] .25ug Take 1 [facility] 0.25 mcg 6-16 capsule by [facility] o f capsule 00:00: mouth [place] 00 daily. [facility] calcitrioL 2022-0 Yes [id number] .25ug Take 1 [facility] 0.25 mcg 6-16 capsule by [facility] o f capsule 00:00: mouth [place] 00 daily. [facility] calcitrioL 2022-0 Yes [id number] .25ug Take 1 [facility] 0.25 mcg 6-16 capsule by [facility] o f capsule 00:00: mouth [place] 00 daily. [facility] tiotropium 2022-0 Yes [id number] 18ug Inhale 1 [facility] 18 mcg 6-09 capsule [facility] of inhalation 00:00: daily. [facility] tiotropium 2022-0 Yes [id number] 18ug Inhale 1 [facility] 18 mcg 6-09 capsule [facility] of inhalation 00:00: daily. [facility] tiotropium 2022-0 Yes [id number] 18ug Inhale 1 [facility] 18 mcg 6-09 capsule [facility] of inhalation 00:00: daily. [facility] tiotropium 2022-0 Yes [id number] 18ug Inhale 1 [facility] 18 mcg 6-09 capsule [facility] of inhalation 00:00: daily. [facility] tiotropium 2022-0 Yes [id number] 18ug Inhale 1 [facility] 18 mcg 6-09 capsule [facility] of inhalation 00:00: daily. [facility] tiotropium 2022-0 Yes [id number] 18ug Inhale 1 [facility] 18 mcg 6-09 capsule [facility] of inhalation 00:00: daily. [facility] tiotropium 3-0 Yes [id number] 18ug Inhale 1 [facility] 18 mcg 6-09 capsule [facility] of inhalation 00:00: daily. [facility] tiotropium 2022-0 Yes [id number] 18ug Inhale 1 [facility] 18 mcg 6-09 capsule [facility] of inhalation 00:00: daily. [facility] tiotropium 2022-0 Yes [id number] 18ug Inhale 1 [facility] 18 mcg 6-09 capsule [facility] of inhalation 00:00: daily. [facility] tiotropium 2022-0 Yes [id number] 18ug Inhale 1 [facility] 18 mcg 6-09 capsule [facility] inhalation 00:00: daily. [facility] tiotropium 2022-0 2023- No [id number] 18ug Inhale 1 [facility] 18 mcg 6-09 07-07 capsule [facility] 00:00: [place] [facility] predniSONE 3-0 Yes [id number] 5mg Take 1 [facility] 5 mg tablet 6-05 tablet by [facility] of 00:00: mouth [place] 00 daily. [facility] predniSONE 2023-0 Yes [id number] 5mg Take 1 [facility] 5 mg tablet 6-05 tablet by [facility] of 00:00: mouth [place] 00 daily. [facility] predniSONE 2023-0 Yes [id number] 5mg Take 1 [facility] 5 mg tablet 6-05 tablet by [facility] of 00:00: mouth [place] 00 daily. [facility] predniSONE 2023-0 Yes [id number] 5mg Take 1 [facility] 5 mg tablet 6-05 tablet by [facility] of 00:00: mouth [place] 00 daily. [facility] predniSONE 2023-0 Yes [id number] 5mg Take 1 [facility] 5 mg tablet 6-05 tablet by [facility] of 00:00: mouth [place] 00 daily. [facility] predniSONE 2023-0 Yes [id number] 5mg Take 1 [facility] 5 mg tablet 6-05 tablet by [facility] of 00:00: mouth [place] 00 daily. [facility] predniSONE 2023-0 Yes [id number] 5mg Take 1 [facility] 5 mg tablet 6-05 tablet by [facility] of 00:00: mouth [place] 00 daily. [facility] predniSONE 2023-0 Yes [id number] 5mg Take 1 [facility] 5 mg tablet 6-05 tablet by [facility] of 00:00: mouth [place] 00 daily. [facility] predniSONE 2023-0 Yes [id number] 5mg Take 1 [facility] 5 mg tablet 6-05 tablet by [facility] of 00:00: mouth [place] 00 daily. [facility] predniSONE 2023-0 Yes [id number] 5mg Take 1 [facility] 5 mg tablet 6-05 tablet by [facility] of 00:00: mouth [place] 00 daily. [facility] predniSONE 2023-0 Yes [id number] 5mg Take 1 [facility] 5 mg tablet 6-05 tablet by [facility] of 00:00: mouth [place] 00 daily. [facility] predniSONE 2023-0 Yes [id number] 5mg Take 1 [facility] 5 mg tablet 6-05 tablet by [facility] of 00:00: mouth [place] 00 daily. [facility] predniSONE 2023-0 Yes [id number] 5mg Take 1 [facility] 5 mg tablet 6-05 tablet by [facility] of 00:00: mouth [place] 00 daily. [facility] predniSONE 2023-0 Yes [id number] 5mg Take 1 [facility] 5 mg tablet 6-05 tablet by [facility] of 00:00: mouth [place] 00 daily. [facility] predniSONE 2023-0 Yes [id number] 5mg Take 1 [facility] 5 mg tablet 6-05 tablet by [facility] of 00:00: mouth [place] 00 daily. [facility] predniSONE 2023-0 Yes [id number] 5mg Take 1 [facility] 5 mg tablet 6-05 tablet by [facility] of 00:00: mouth [place] 00 daily. [facility] predniSONE 2023-0 Yes [id number] 5mg Take 1 [facility] 5 mg tablet 6-05 tablet by [facility] of 00:00: mouth [place] 00 daily. [facility] predniSONE 2023-0 Yes [id number] 5mg Take 1 [facility] 5 mg tablet 6-05 tablet by [facility] of 00:00: mouth [place] 00 daily. [facility] predniSONE 2023-0 Yes [id number] 5mg Take 1 [facility] 5 mg tablet 6-05 tablet by [facility] of 00:00: mouth [place] 00 daily. [facility] predniSONE 2023-0 Yes [id number] 5mg Take 1 [facility] 5 mg tablet 6-05 tablet by [facility] of 00:00: mouth [place] 00 daily. [facility] predniSONE 2022-0 Yes [id number] 5mg Take 1 [facility] 5 mg tablet 6-05 tablet by [facility] of 00:00: mouth [place] 00 daily. [facility] predniSONE 2022-0 Yes [id number] 5mg Take 1 [facility] 5 mg tablet 6-05 tablet by [facility] of 00:00: mouth [place] 00 daily. [facility] predniSONE 2022-0 2022- No [id number] 5mg Take 1 [facility] 5 mg tablet 6-05 -13 tablet by it y of 00:00: 00:00 mouth [place] 00 :00 daily. [facility] predniSONE 2022-2022- No [id number] 5mg Take 1 [facility] 5 mg tablet 6-05 07-13 tablet by it y of 00:00: 00:00 mouth [place] 00 :00 daily. [facility] predniSONE 2022-2022- No [id number] 5mg Take 1 [facility] 5 mg tablet 6-05 07-13 tablet by it y of 00:00: 00:00 mouth [place] 00 :00 daily. [facility] mycophenola 0 Yes TAKE 3 [facility] ers te sodium 6-02 TABLETS BY ity of 180 mg EC 00:00: MOUTH [place] tablet 00 EVERY 12 [facility] HOURS [facility] mycophenola 0 Yes TAKE 3 [facility] ers te sodium 6-02 TABLETS BY ity of 180 mg EC 00:00: MOUTH [place] tablet 00 EVERY 12 [facility] HOU[facility] mycophenola 0 Yes TAKE 3 [facility] ers te sodium 6-02 TABLETS BY ity of 180 mg EC 00:00: MOUTH [place] tablet 00 EVERY 12 [facility] HOU[facility] mycophenola 2022-0 Yes TAKE 3 [facility] ers te sodium 6-02 TABLETS BY ity of 180 mg EC 00:00: MOUTH [place] tablet 00 EVERY 12 [facility] HOU[facility] mycophenola 0 Yes TAKE 3 [facility] ers te sodium 6-02 TABLETS BY ity of 180 mg EC 00:00: MOUTH [place] tablet 00 EVERY 12 [facility] HOU[facility] mycophenola 0 Yes TAKE 3 [facility] ers te sodium 6-02 TABLETS BY ity of 180 mg EC 00:00: MOUTH [place] tablet 00 EVERY 12 [facility] HOU[facility] mycophenola 0 Yes TAKE 3 [facility] ers te sodium 6-02 TABLETS BY ity of 180 mg EC 00:00: MOUTH [place] tablet 00 EVERY 12 [facility] HOU[facility] mycophenola 0 Yes TAKE 3 [facility] ers te sodium 6-02 TABLETS BY ity of 180 mg EC 00:00: MOUTH [place] tablet 00 EVERY 12 [facility] HOU[facility] mycophenola 0 Yes TAKE 3 [facility] ers te sodium 6-02 TABLETS BY ity of 180 mg EC 00:00: MOUTH [place] tablet 00 EVERY 12 [facility] HOU[facility] mycophenola 0 Yes TAKE 3 [facility] ers te sodium 6-02 TABLETS BY ity of 180 mg EC 00:00: MOUTH [place] tablet 00 EVERY 12 [facility] HOU[facility] mycophenola 2022-0 Yes TAKE 3 [facility] ers te sodium 6-02 TABLETS BY ity of 180 mg EC 00:00: MOUTH [place] tablet 00 EVERY 12 [facility] HOU[facility] mycophenola 0 Yes TAKE 3 [facility] ers te sodium 6-02 TABLETS BY ity of 180 mg EC 00:00: MOUTH [place] tablet 00 EVERY 12 [facility] HOU[facility] mycophenola 0 Yes TAKE 3 [facility] ers te sodium 6-02 TABLETS BY ity of 180 mg EC 00:00: MOUTH [place] tablet 00 EVERY 12 [facility] HOU[facility] mycophenola 0 Yes TAKE 3 [facility] ers te sodium 6-02 TABLETS BY ity of 180 mg EC 00:00: MOUTH [place] tablet 00 EVERY 12 [facility] HOU[facility] mycophenola 0 Yes TAKE 3 [facility] ers te sodium 6-02 TABLETS BY [facility]y of 180 mg EC 00:00: MOUTH [place] tablet 00 EVERY 12 [facility] HOU[facility] mycophenola 0 Yes TAKE 3 [facility] ers te sodium 6-02 TABLETS BY ity of 180 mg EC 00:00: MOUTH [place] tablet 00 EVERY 12 [facility] HOU[facility] mycophenola 2022-0 Yes TAKE 3 [facility] ers te sodium 6-02 TABLETS BY ity of 180 mg EC 00:00: MOUTH [place] tablet 00 EVERY 12 [facility] HOU[facility] mycophenola 2022-0 Yes TAKE 3 [facility] ers te sodium 6-02 TABLETS BY [facility]y of 180 mg EC 00:00: MOUTH [place] tablet 00 EVERY 12 [facility] mycophenola 2022-0 Yes TAKE 3 [facility] ers te sodium 6-02 TABLETS BY ity of 180 mg EC 00:00: MOUTH [place] tablet 00 EVERY 12 [facility] HOU[facility] mycophenola 2022-0 Yes TAKE 3 [facility] ers te sodium 6-02 TABLETS BY ity of 180 mg EC 00:00: MOUTH [place] tablet 00 EVERY 12 [facility] HOU[facility] mycophenola Yes TAKE 3 [facility] ers te sodium 6-02 TABLETS BY ity of 180 mg EC 00:00: MOUTH [place] tablet 00 EVERY 12 [facility] HOU[facility] mycophenola 0 Yes TAKE 3 [facility] ers te sodium 6-02 TABLETS BY ity of 180 mg EC 00:00: MOUTH [place] tablet 00 EVERY 12 [facility] HOU[facility] mycophenola Yes TAKE 3 [facility] ers te sodium 6-02 TABLETS BY ity of 180 mg EC 00:00: MOUTH [place] tablet 00 EVERY 12 [facility] mycophenola 0 Yes TAKE 3 [facility] ers te sodium 6-02 TABLETS BY ity of 180 mg EC 00:00: MOUTH [place] tablet 00 EVERY 12 [facility] mycophenola Yes TAKE 3 [facility] ers te sodium 6-02 TABLETS BY ity of 180 mg EC 00:00: MOUTH [place] tablet 00 EVERY 12 [facility] mycophenola Yes TAKE 3 [facility] ers te sodium 6-02 TABLETS BY ity of 180 mg EC 00:00: MOUTH [place] tablet 00 EVERY 12 [facility] mycophenola Yes TAKE 3 [facility] ers te sodium 6-02 TABLETS BY ity of 180 mg EC 00:00: MOUTH [place] tablet 00 EVERY 12 [facility] mycophenola Yes TAKE 3 [facility] ers te sodium 6-02 TABLETS BY ity of 180 mg EC 00:00: MOUTH [place] tablet 00 EVERY 12 [facility] mycophenola Yes TAKE 3 [facility] ers te sodium 6-02 TABLETS BY ity of 180 mg EC 00:00: MOUTH [place] tablet 00 EVERY 12 [facility] mycophenola 2022-0 Yes TAKE 3 [facility] ers te sodium 6-02 TABLETS BY [facility]y of 180 mg EC 00:00: MOUTH [place] tablet 00 EVERY 12 [facility] mycophenola 0 Yes TAKE 3 [facility] ers te sodium 6-02 TABLETS BY ity of 180 mg EC 00:00: MOUTH [place] tablet 00 EVERY 12 [facility] mycophenola 2022-0 Yes TAKE 3 [facility] ers te sodium 6-02 TABLETS BY ity of 180 mg EC 00:00: MOUTH [place] tablet 00 EVERY 12 [facility] mycophenola 0 Yes TAKE 3 [facility] ers te sodium 6-02 TABLETS BY [facility]y of 180 mg EC 00:00: MOUTH [place] tablet 00 EVERY 12 [facility] mycophenola 2023-0 Yes TAKE 3 [facility] ers te sodium 6-02 TABLETS BY ity of 180 mg EC 00:00: MOUTH [place] tablet 00 EVERY 12 [facility] mycophenola Yes TAKE 3 [facility] ers te sodium 6-02 TABLETS BY ity of 180 mg EC 00:00: MOUTH [place] tablet 00 EVERY 12 [facility] mycophenola Yes TAKE 3 [facility] ers te sodium 6-02 TABLETS BY ity of 180 mg EC 00:00: MOUTH [place] tablet 00 EVERY 12 [facility] mycophenola Yes TAKE 3 [facility] ers te sodium 6-02 TABLETS BY ity of 180 mg EC 00:00: MOUTH [place] tablet 00 EVERY 12 [facility] mycophenola Yes TAKE 3 [facility] ers te sodium 6-02 TABLETS BY ity of 180 mg EC 00:00: MOUTH [place] tablet 00 EVERY 12 [facility] mycophenola Yes TAKE 3 [facility] ers te sodium 6-02 TABLETS BY ity of 180 mg EC 00:00: MOUTH [place] tablet 00 EVERY 12 [facility] mycophenola Yes TAKE 3 [facility] ers te sodium 6-02 TABLETS BY ity of 180 mg EC 00:00: MOUTH [place] tablet 00 EVERY 12 [facility] mycophenola Yes TAKE 3 [facility] ers te sodium 6-02 TABLETS BY ity of 180 mg EC 00:00: MOUTH [place] tablet 00 EVERY 12 [facility] mycophenola Yes TAKE 3 [facility] ers te sodium 6-02 TABLETS BY ity of 180 mg EC 00:00: MOUTH [place] tablet 00 EVERY 12 [facility] mycophenola Yes TAKE 3 [facility] ers te sodium 6-02 TABLETS BY ity of 180 mg EC 00:00: MOUTH [place] tablet 00 EVERY 12 [facility] HOU[facility] mycophenola Yes TAKE 3 [facility] ers te sodium 6-02 TABLETS BY ity of 180 mg EC 00:00: MOUTH [place] tablet 00 EVERY 12 [facility] mycophenola 0 Yes TAKE 3 [facility] ers te sodium 6-02 TABLETS BY ity of 180 mg EC 00:00: MOUTH [place] tablet 00 EVERY 12 [facility] mycophenola Yes TAKE 3 [facility] ers te sodium 6-02 TABLETS BY ity of 180 mg EC 00:00: MOUTH [place] tablet 00 EVERY 12 [facility] mycophenola 2023-0 Yes TAKE 3 [facility] ers te sodium 6-02 TABLETS BY ity of 180 mg EC 00:00: MOUTH [place] tablet 00 EVERY 12 [facility] mycophenola 0 Yes TAKE 3 [facility] ers te sodium 6-02 TABLETS BY ity of 180 mg EC 00:00: MOUTH [place] tablet 00 EVERY 12 [facility] mycophenola Yes TAKE 3 [facility] ers te sodium 6-02 TABLETS BY ity of 180 mg EC 00:00: MOUTH [place] tablet 00 EVERY 12 [facility] mycophenola Yes TAKE 3 [facility] ers te sodium 6-02 TABLETS BY ity of 180 mg EC 00:00: MOUTH [place] tablet 00 EVERY 12 [facility] mycophenola Yes TAKE 3 [facility] ers te sodium 6-02 TABLETS BY ity of 180 mg EC 00:00: MOUTH [place] tablet 00 EVERY 12 [facility] mycophenola Yes TAKE 3 [facility] ers te sodium 6-02 TABLETS BY ity of 180 mg EC 00:00: MOUTH [place] tablet 00 EVERY 12 [facility] mycophenola Yes TAKE 3 [facility] ers te sodium 6-02 TABLETS BY ity of 180 mg EC 00:00: MOUTH [place] tablet 00 EVERY 12 [facility] mycophenola Yes TAKE 3 [facility] ers te sodium 6-02 TABLETS BY ity of 180 mg EC 00:00: MOUTH [place] tablet 00 EVERY 12 [facility] mycophenola Yes TAKE 3 [facility] ers te sodium 6-02 TABLETS BY ity of 180 mg EC 00:00: MOUTH [place] tablet 00 EVERY 12 [facility] mycophenola Yes TAKE 3 [facility] ers te sodium 6-02 TABLETS BY ity of 180 mg EC 00:00: MOUTH [place] tablet 00 EVERY 12 [facility] mycophenola 0 Yes TAKE 3 [facility] ers te sodium 6-02 TABLETS BY ity of 180 mg EC 00:00: MOUTH [place] tablet 00 EVERY 12 [facility] mycophenola 0 Yes TAKE 3 [facility] ers te sodium 6-02 TABLETS BY ity of 180 mg EC 00:00: MOUTH [place] tablet 00 EVERY 12 [facility] mycophenola 0 Yes TAKE 3 [facility] ers te sodium 6-02 TABLETS BY ity of 180 mg EC 00:00: MOUTH [place] tablet 00 EVERY 12 [facility] mycophenola 0 Yes TAKE 3 [facility] ers te sodium 6-02 TABLETS BY ity of 180 mg EC 00:00: MOUTH [place] tablet 00 EVERY 12 [facility] mycophenola 0 Yes TAKE 3 [facility] ers te sodium 6-02 TABLETS BY ity of 180 mg EC 00:00: MOUTH [place] tablet 00 EVERY 12 [facility] mycophenola 0 Yes TAKE 3 [facility] ers te sodium 6-02 TABLETS BY ity of 180 mg EC 00:00: MOUTH [place] tablet 00 EVERY 12 [facility] mycophenola Yes TAKE 3 [facility] ers te sodium 6-02 TABLETS BY ity of 180 mg EC 00:00: MOUTH [place] tablet 00 EVERY 12 [facility] mycophenola Yes TAKE 3 [facility] ers te sodium 6-02 TABLETS BY ity of 180 mg EC 00:00: MOUTH [place] tablet 00 EVERY 12 [facility] mycophenola Yes TAKE 3 [facility] ers te sodium 6-02 TABLETS BY ity of 180 mg EC 00:00: MOUTH [place] tablet 00 EVERY 12 [facility] mycophenola Yes TAKE 3 [facility] ers te sodium 6-02 TABLETS BY ity of 180 mg EC 00:00: MOUTH [place] tablet 00 EVERY 12 [facility] mycophenola Yes TAKE 3 [facility] ers te sodium 6-02 TABLETS BY ity of 180 mg EC 00:00: MOUTH [place] tablet 00 EVERY 12 [facility] mycophenola Yes TAKE 3 [facility] ers te sodium 6-02 TABLETS BY ity of 180 mg EC 00:00: MOUTH [place] tablet 00 EVERY 12 [facility] mycophenola 0 Yes TAKE 3 [facility] te sodium 6-02 TABLETS BY ity of 180 mg EC 00:00: MOUTH [place] tablet 00 EVERY 12 [facility] mycophenola 2022-0 Yes TAKE 3 [facility] ers te sodium 6-02 TABLETS BY ity of 180 mg EC 00:00: MOUTH [place] tablet 00 EVERY 12 [facility] HOU[facility] mycophenola 0 Yes TAKE 3 [facility] ers te sodium 6-02 TABLETS BY ity of 180 mg EC 00:00: MOUTH [place] tablet 00 EVERY 12 [facility] mycophenola 0 Yes TAKE 3 [facility] ers te sodium 6-02 TABLETS BY ity of 180 mg EC 00:00: MOUTH [place] tablet 00 EVERY 12 [facility] mycophenola 0 Yes TAKE 3 [facility] ers te sodium 6-02 TABLETS BY ity of 180 mg EC 00:00: MOUTH [place] tablet 00 EVERY 12 [facility] mycophenola 2022-0 Yes TAKE 3 [facility] ers te sodium 6-02 TABLETS BY ity of 180 mg EC 00:00: MOUTH [place] tablet 00 EVERY 12 [facility] mycophenola 2022-0 Yes TAKE 3 [facility] ers te sodium 6-02 TABLETS BY ity of 180 mg EC 00:00: MOUTH [place] tablet 00 EVERY 12 [facility] HOU[facility] glipiZIDE 5 2022-0 Yes [id number] TAKE 2 [facility] mg tablet 5-22 TABLETS BY [facility]y of 00:00: MOUTH [place] 00 EVERY Medical MORNING Branch AND TAKE 1 TABLET BY MOUTH EVERY EVENING glipiZIDE 5 2022-0 Yes [id number] TAKE 2 [facility] mg tablet 5-22 TABLETS BY ity of 00:00: MOUTH [place] 00 EVERY [facility] MORNING [facility] AND TAKE 1 TABLET BY MOUTH EVERY EVENING glipiZIDE 5 2022-0 Yes [id number] TAKE 2 [facility] mg tablet 5-22 TABLETS BY ity of 00:00: MOUTH [place] 00 EVERY [facility] MORNING [facility] AND TAKE 1 TABLET BY MOUTH EVERY EVENING glipiZIDE 5 2022-0 Yes [id number] TAKE 2 [facility] mg tablet 5-22 TABLETS BY ity of 00:00: MOUTH [place] 00 EVERY Medical MORNING [facility] AND TAKE 1 TABLET BY MOUTH EVERY EVENING glipiZIDE 5 2022-0 Yes [id number] TAKE 2 [facility] mg tablet 5-22 TABLETS BY ity of 00:00: MOUTH [place] 00 EVERY [facility] MORNING [facility] AND TAKE 1 TABLET BY MOUTH EVERY EVENING glipiZIDE 5 2022-0 Yes [id number] TAKE 2 [facility] mg tablet 5-22 TABLETS BY ity of 00:00: MOUTH [place] 00 EVERY [facility] MORNING [facility] AND TAKE 1 TABLET BY MOUTH EVERY EVENING glipiZIDE 5 2022-0 Yes [id number] TAKE 2 [facility] mg tablet 5-22 TABLETS BY ity of 00:00: MOUTH [place] 00 EVERY Medical MORNING [facility] AND TAKE 1 TABLET BY MOUTH EVERY EVENING glipiZIDE 5 2022-0 Yes [id number] TAKE 2 [facility] mg tablet 5-22 TABLETS BY ity of 00:00: MOUTH [place] 00 EVERY Medical MORNING [facility] AND TAKE 1 TABLET BY MOUTH EVERY EVENING glipiZIDE 5 2022-0 Yes [id number] TAKE 2 [facility] mg tablet 5-22 TABLETS BY ity of 00:00: MOUTH [place] 00 EVERY [facility] MORNING [facility] AND TAKE 1 TABLET BY MOUTH EVERY EVENING glipiZIDE 5 2022-0 Yes [id number] TAKE 2 [facility] mg tablet 5-22 TABLETS BY ity of 00:00: MOUTH [place] 00 EVERY Medical MORNING [facility] AND TAKE 1 TABLET BY MOUTH EVERY EVENING glipiZIDE 5 2022-0 Yes [id number] TAKE 2 [facility] mg tablet 5-22 TABLETS BY ity of 00:00: MOUTH [place] 00 EVERY Medical MORNING Branch AND TAKE 1 TABLET BY MOUTH EVERY EVENING glipiZIDE 5 2022-0 Yes [id number] TAKE 2 [facility] mg tablet 5-22 TABLETS BY ity of 00:00: MOUTH [place] 00 EVERY Medical MORNING [facility] AND TAKE 1 TABLET BY MOUTH EVERY EVENING glipiZIDE 5 2022-0 Yes [id number] TAKE 2 [facility] mg tablet 5-22 TABLETS BY [facility] 00:00: MOUTH [place] 00 EVERY Medical MORNING Branch AND TAKE 1 TABLET BY MOUTH EVERY EVENING glipiZIDE 5 2022-0 Yes [id number] TAKE 2 [facility] mg tablet 5-22 TABLETS BY [facility] of 00:00: MOUTH [place] 00 EVERY Medical MORNING Branch AND TAKE 1 TABLET BY MOUTH EVERY EVENING glipiZIDE 5 2022-0 Yes [id number] TAKE 2 [facility] mg tablet 5-22 TABLETS BY [facility] of 00:00: MOUTH [place] 00 EVERY Medical MORNING Branch AND TAKE 1 TABLET BY MOUTH EVERY EVENING glipiZIDE 5 2022-0 Yes [id number] TAKE 2 [facility] mg tablet 5-22 TABLETS BY [facility] of 00:00: MOUTH [place] 00 EVERY Medical MORNING Branch AND TAKE 1 TABLET BY MOUTH EVERY EVENING glipiZIDE 5 2022-0 Yes [id number] TAKE 2 [facility] mg tablet 5-22 TABLETS BY [facility] of 00:00: MOUTH [place] 00 EVERY Medical MORNING Branch AND TAKE 1 TABLET BY MOUTH EVERY EVENING glipiZIDE 5 2022-0 Yes [id number] TAKE 2 [facility] mg tablet 5-22 TABLETS BY [facility] of 00:00: MOUTH [place] 00 EVERY Medical MORNING Branch AND TAKE 1 TABLET BY MOUTH EVERY EVENING glipiZIDE 5 2022-0 Yes [id number] TAKE 2 [facility] mg tablet 5-22 TABLETS BY [facility] of 00:00: MOUTH [place] 00 EVERY Medical MORNING Branch AND TAKE 1 TABLET BY MOUTH EVERY EVENING glipiZIDE 5 2022-0 Yes [id number] TAKE 2 [facility] mg tablet 5-22 TABLETS BY [facility] of 00:00: MOUTH [place] 00 EVERY Medical MORNING Branch AND TAKE 1 TABLET BY MOUTH EVERY EVENING glipiZIDE 5 2022-0 Yes [id number] TAKE 2 [facility] mg tablet 5-22 TABLETS BY [facility] of 00:00: MOUTH [place] 00 EVERY Medical MORNING Branch AND TAKE 1 TABLET BY MOUTH EVERY EVENING glipiZIDE 5 2022-0 Yes [id number] TAKE 2 [facility] mg tablet 5-22 TABLETS BY [facility] of 00:00: MOUTH [place] 00 EVERY Medical MORNING Branch AND TAKE 1 TABLET BY MOUTH EVERY EVENING glipiZIDE 5 2022-0 Yes [id number] TAKE 2 [facility] mg tablet 5-22 TABLETS BY [facility] of 00:00: MOUTH [place] 00 EVERY Medical MORNING Branch AND TAKE 1 TABLET BY MOUTH EVERY EVENING glipiZIDE 5 2022-0 Yes [id number] TAKE 2 [facility] mg tablet 5-22 TABLETS BY [facility] of 00:00: MOUTH [place] 00 EVERY Medical MORNING Branch AND TAKE 1 TABLET BY MOUTH EVERY EVENING glipiZIDE 5 2022-0 Yes [id number] TAKE 2 [facility] mg tablet 5-22 TABLETS BY [facility] of 00:00: MOUTH [place] 00 EVERY Medical MORNING Branch AND TAKE 1 TABLET BY MOUTH EVERY EVENING glipiZIDE 5 2022-0 Yes [id number] TAKE 2 [facility] mg tablet 5-22 TABLETS BY [facility] of 00:00: MOUTH [place] 00 EVERY Medical MORNING Branch AND TAKE 1 TABLET BY MOUTH EVERY EVENING glipiZIDE 5 2022-0 Yes [id number] TAKE 2 [facility] mg tablet 5-22 TABLETS BY [facility] of 00:00: MOUTH [place] 00 EVERY Medical MORNING Branch AND TAKE 1 TABLET BY MOUTH EVERY EVENING glipiZIDE 5 2022-0 Yes [id number] TAKE 2 [facility] mg tablet 5-22 TABLETS BY [facility] of 00:00: MOUTH [place] 00 EVERY Medical MORNING Branch AND TAKE 1 TABLET BY MOUTH EVERY EVENING glipiZIDE 5 2022-0 Yes [id number] TAKE 2 [facility] mg tablet 5-22 TABLETS BY [facility] of 00:00: MOUTH [place] 00 EVERY Medical MORNING Branch AND TAKE 1 TABLET BY MOUTH EVERY EVENING glipiZIDE 5 2022-0 Yes [id number] TAKE 2 [facility] mg tablet 5-22 TABLETS BY [facility] of 00:00: MOUTH [place] 00 EVERY Medical MORNING Branch AND TAKE 1 TABLET BY MOUTH EVERY EVENING glipiZIDE 5 2022-0 Yes [id number] TAKE 2 [facility] mg tablet 5-22 TABLETS BY [facility] of 00:00: MOUTH [place] 00 EVERY Medical MORNING Branch AND TAKE 1 TABLET BY MOUTH EVERY EVENING glipiZIDE 5 2022-0 Yes [id number] TAKE 2 [facility] mg tablet 5-22 TABLETS BY [facility] of 00:00: MOUTH [place] 00 EVERY Medical MORNING Branch AND TAKE 1 TABLET BY MOUTH EVERY EVENING glipiZIDE 5 2022-0 Yes [id number] TAKE 2 [facility] mg tablet 5-22 TABLETS BY [facility] of 00:00: MOUTH [place] 00 EVERY Medical MORNING Branch AND TAKE 1 TABLET BY MOUTH EVERY EVENING glipiZIDE 5 2022-0 Yes [id number] TAKE 2 [facility] mg tablet 5-22 TABLETS BY [facility] of 00:00: MOUTH [place] 00 EVERY Medical MORNING Branch AND TAKE 1 TABLET BY MOUTH EVERY EVENING glipiZIDE 5 2022-0 Yes [id number] TAKE 2 [facility] mg tablet 5-22 TABLETS BY [facility] 00:00: MOUTH [place] 00 EVERY Medical MORNING Branch AND TAKE 1 TABLET BY MOUTH EVERY EVENING glipiZIDE 5 2022-0 Yes [id number] TAKE 2 [facility] mg tablet 5-22 TABLETS BY [facility] of 00:00: MOUTH [place] 00 EVERY Medical MORNING Branch AND TAKE 1 TABLET BY MOUTH EVERY EVENING glipiZIDE 5 2022-0 Yes [id number] TAKE 2 [facility] mg tablet 5-22 TABLETS BY [facility] 00:00: MOUTH [place] 00 EVERY Medical MORNING Branch AND TAKE 1 TABLET BY MOUTH EVERY EVENING glipiZIDE 5 2022-0 Yes [id number] TAKE 2 [facility] mg tablet 5-22 TABLETS BY [facility] of 00:00: MOUTH [place] 00 EVERY Medical MORNING Branch AND TAKE 1 TABLET BY MOUTH EVERY EVENING glipiZIDE 5 2022-0 Yes [id number] TAKE 2 [facility] mg tablet 5-22 TABLETS BY [facility] of 00:00: MOUTH [place] 00 EVERY Medical MORNING Branch AND TAKE 1 TABLET BY MOUTH EVERY EVENING glipiZIDE 5 2022-0 Yes [id number] TAKE 2 [facility] mg tablet 5-22 TABLETS BY [facility] of 00:00: MOUTH [place] 00 EVERY Medical MORNING Branch AND TAKE 1 TABLET BY MOUTH EVERY EVENING glipiZIDE 5 2022-0 Yes [id number] TAKE 2 [facility] mg tablet 5-22 TABLETS BY [facility] 00:00: MOUTH [place] 00 EVERY Medical MORNING Branch AND TAKE 1 TABLET BY MOUTH EVERY EVENING glipiZIDE 5 2022-0 Yes [id number] TAKE 2 [facility] mg tablet 5-22 TABLETS BY [facility] 00:00: MOUTH [place] 00 EVERY Medical MORNING Branch AND TAKE 1 TABLET BY MOUTH EVERY EVENING glipiZIDE 5 2022-0 Yes [id number] TAKE 2 [facility] mg tablet 5-22 TABLETS BY [facility] 00:00: MOUTH [place] 00 EVERY Medical MORNING Branch AND TAKE 1 TABLET BY MOUTH EVERY EVENING glipiZIDE 5 2022-0 Yes [id number] TAKE 2 [facility] mg tablet 5-22 TABLETS BY [facility] 00:00: MOUTH [place] 00 EVERY Medical MORNING Branch AND TAKE 1 TABLET BY MOUTH EVERY EVENING glipiZIDE 5 2022-0 Yes [id number] TAKE 2 [facility] mg tablet 5-22 TABLETS BY [facility] of 00:00: MOUTH [place] 00 EVERY Medical MORNING Branch AND TAKE 1 TABLET BY MOUTH EVERY EVENING glipiZIDE 5 2022-0 Yes [id number] TAKE 2 [facility] mg tablet 5-22 TABLETS BY [facility] 00:00: MOUTH [place] 00 EVERY Medical MORNING Branch AND TAKE 1 TABLET BY MOUTH EVERY EVENING glipiZIDE 5 2022-0 Yes [id number] TAKE 2 [facility] mg tablet 5-22 TABLETS BY [facility] 00:00: MOUTH [place] 00 EVERY Medical MORNING Branch AND TAKE 1 TABLET BY MOUTH EVERY EVENING glipiZIDE 5 2022-0 Yes [id number] TAKE 2 [facility] mg tablet 5-22 TABLETS BY [facility] of 00:00: MOUTH [place] 00 EVERY Medical MORNING Branch AND TAKE 1 TABLET BY MOUTH EVERY EVENING glipiZIDE 5 2022-0 Yes [id number] TAKE 2 [facility] mg tablet 5-22 TABLETS BY [facility] 00:00: MOUTH [place] 00 EVERY Medical MORNING Branch AND TAKE 1 TABLET BY MOUTH EVERY EVENING glipiZIDE 5 2022-0 Yes [id number] TAKE 2 [facility] mg tablet 5-22 TABLETS BY [facility] 00:00: MOUTH [place] 00 EVERY Medical MORNING Branch AND TAKE 1 TABLET BY MOUTH EVERY EVENING glipiZIDE 5 2022-0 Yes [id number] TAKE 2 [facility] mg tablet 5-22 TABLETS BY [facility] 00:00: MOUTH [place] 00 EVERY Medical MORNING Branch AND TAKE 1 TABLET BY MOUTH EVERY EVENING glipiZIDE 5 2022-0 Yes [id number] TAKE 2 [facility] mg tablet 5-22 TABLETS BY [facility] of 00:00: MOUTH [place] 00 EVERY Medical MORNING Branch AND TAKE 1 TABLET BY MOUTH EVERY EVENING glipiZIDE 5 2022-0 Yes [id number] TAKE 2 [facility] mg tablet 5-22 TABLETS BY [facility] 00:00: MOUTH [place] 00 EVERY Medical MORNING Branch AND TAKE 1 TABLET BY MOUTH EVERY EVENING glipiZIDE 5 2022-0 Yes [id number] TAKE 2 [facility] mg tablet 5-22 TABLETS BY [facility] 00:00: MOUTH [place] 00 EVERY Medical MORNING Branch AND TAKE 1 TABLET BY MOUTH EVERY EVENING glipiZIDE 5 2022-0 Yes [id number] TAKE 2 [facility] mg tablet 5-22 TABLETS BY [facility] 00:00: MOUTH [place] 00 EVERY Medical MORNING Branch AND TAKE 1 TABLET BY MOUTH EVERY EVENING glipiZIDE 5 2022-0 Yes [id number] TAKE 2 [facility] mg tablet 5-22 TABLETS BY [facility] 00:00: MOUTH [place] 00 EVERY Medical MORNING Branch AND TAKE 1 TABLET BY MOUTH EVERY EVENING glipiZIDE 5 0 Yes [id number] TAKE 2 [facility] mg tablet 5-22 TABLETS BY [facility] of 00:00: MOUTH [place] 00 EVERY Medical MORNING Branch AND TAKE 1 TABLET BY MOUTH EVERY EVENING glipiZIDE 5 0 Yes [id number] TAKE 2 [facility] mg tablet 5-22 TABLETS BY [facility] of 00:00: MOUTH [place] 00 EVERY Medical MORNING Branch AND TAKE 1 TABLET BY MOUTH EVERY EVENING glipiZIDE 5 0 Yes [id number] TAKE 2 [facility] mg tablet 5-22 TABLETS BY [facility] of 00:00: MOUTH [place] 00 EVERY Medical MORNING Branch AND TAKE 1 TABLET BY MOUTH EVERY EVENING glipiZIDE 5 2022-0 Yes [id number] TAKE 2 [facility] mg tablet 5-22 TABLETS BY [facility] of 00:00: MOUTH [place] 00 EVERY Medical MORNING Branch AND TAKE 1 TABLET BY MOUTH EVERY EVENING glipiZIDE 5 2022-0 Yes [id number] TAKE 2 [facility] mg tablet 5-22 TABLETS BY [facility] of 00:00: MOUTH [place] 00 EVERY Medical MORNING Branch AND TAKE 1 TABLET BY MOUTH EVERY EVENING glipiZIDE 5 0 Yes [id number] TAKE 2 [facility] mg tablet 5-22 TABLETS BY [facility] of 00:00: MOUTH [place] 00 EVERY Medical MORNING Branch AND TAKE 1 TABLET BY MOUTH EVERY EVENING glipiZIDE 5 2022-0 2023- No [id number] TAKE 2 [facility] mg tablet 5-22 10-31 TABLETS BY [facility] 00:00: 00:00 MOUTH [place] 00 :00 EVERY Medical MORNING Branch AND TAKE 1 TABLET BY MOUTH EVERY EVENING montelukast Yes [id number] 10mg Take 1 [facility] 10 mg 5-18 tablet by [facility] of tablet 00:00: mouth [place] 00 every Medical evening. [place] montelukast Yes [id number] 10mg Take 1 [facility] 10 mg 5-18 tablet by [facility] of tablet 00:00: mouth [place] 00 every Medical evening. [place] montelukast Yes [id number] 10mg Take 1 [facility] 10 mg 5-18 tablet by [facility] of tablet 00:00: mouth [place] 00 every Medical evening. [place] montelukast Yes [id number] 10mg Take 1 [facility] 10 mg 5-18 tablet by [facility] of tablet 00:00: mouth [place] 00 every Medical evening. [place] montelukast Yes [id number] 10mg Take 1 [facility] 10 mg 5-18 tablet by [facility] of tablet 00:00: mouth [place] 00 every Medical evening. [place] montelukast Yes [id number] 10mg Take 1 [facility] 10 mg 5-18 tablet by [facility] of tablet 00:00: mouth [place] 00 every Medical evening. [place] montelukast Yes [id number] 10mg Take 1 [facility] 10 mg 5-18 tablet by [facility] of tablet 00:00: mouth [place] 00 every Medical evening. [place] montelukast Yes [id number] 10mg Take 1 [facility] 10 mg 5-18 tablet by [facility] of tablet 00:00: mouth [place] 00 every Medical evening. [place] montelukast Yes [id number] 10mg Take 1 [facility] 10 mg 5-18 tablet by [facility] of tablet 00:00: mouth [place] 00 every Medical evening. [place] montelukast Yes [id number] 10mg Take 1 [facility] 10 mg 5-18 tablet by [facility] of tablet 00:00: mouth [place] 00 every Medical evening. [place] montelukast Yes [id number] 10mg Take 1 [facility] 10 mg 5-18 tablet by [facility] of tablet 00:00: mouth [place] 00 every Medical evening. [place] montelukast Yes [id number] 10mg Take 1 [facility] 10 mg 5-18 tablet by [facility] of tablet 00:00: mouth [place] 00 every Medical evening. [place] montelukast Yes [id number] 10mg Take 1 [facility] 10 mg 5-18 tablet by [facility] of tablet 00:00: mouth [place] 00 every Medical evening. [place] montelukast 0 Yes [id number] 10mg Take 1 [facility] 10 mg 5-18 tablet by [facility] of tablet 00:00: mouth [place] 00 every Medical evening. [place] montelukast Yes [id number] 10mg Take 1 [facility] 10 mg 5-18 tablet by [facility] of tablet 00:00: mouth [place] 00 every Medical evening. Branch montelukast Yes [id number] 10mg Take 1 [facility] 10 mg 5-18 tablet by [facility] of tablet 00:00: mouth [place] 00 every Medical evening. [place] montelukast Yes [id number] 10mg Take 1 [facility] 10 mg 5-18 tablet by [facility] of tablet 00:00: mouth [place] 00 every Medical evening. [place] montelukast Yes [id number] 10mg Take 1 [facility] 10 mg 5-18 tablet by [facility] of tablet 00:00: mouth [place] 00 every Medical evening. [place] montelukast Yes [id number] 10mg Take 1 [facility] 10 mg 5-18 tablet by [facility] of tablet 00:00: mouth [place] 00 every Medical evening. [place] montelukast Yes [id number] 10mg Take 1 [facility] 10 mg 5-18 tablet by it[facility] of tablet 00:00: mouth [place] 00 every Medical evening. [place] montelukast Yes [id number] 10mg Take 1 [facility] 10 mg 5-18 tablet by [facility] of tablet 00:00: mouth [place] 00 every Medical evening. [place] montelukast Yes [id number] 10mg Take 1 [facility] 10 mg 5-18 tablet by [facility] of tablet 00:00: mouth [place] 00 every Medical evening. [place] montelukast Yes [id number] 10mg Take 1 [facility] 10 mg 5-18 tablet by [facility] of tablet 00:00: mouth [place] 00 every Medical evening. [place] montelukast Yes [id number] 10mg Take 1 [facility] 10 mg 5-18 tablet by [facility] of tablet 00:00: mouth [place] 00 every Medical evening. [place] montelukast Yes [id number] 10mg Take 1 [facility] 10 mg 5-18 tablet by [facility] of tablet 00:00: mouth [place] 00 every Medical evening. [place] montelukast Yes [id number] 10mg Take 1 [facility] 10 mg 5-18 tablet by ity of tablet 00:00: mouth [place] 00 every Medical evening. [place] montelukast Yes [id number] 10mg Take 1 [facility] 10 mg 5-18 tablet by it[facility] of tablet 00:00: mouth [place] 00 every Medical evening. [place] montelukast Yes [id number] 10mg Take 1 [facility] 10 mg 5-18 tablet by ity of tablet 00:00: mouth [place] 00 every Medical evening. [place] montelukast Yes [id number] 10mg Take 1 [facility] 10 mg 5-18 tablet by ity of tablet 00:00: mouth [place] 00 every Medical evening. [place] montelukast Yes [id number] 10mg Take 1 [facility] 10 mg 5-18 tablet by [facility] of tablet 00:00: mouth [place] 00 every Medical evening. [place] montelukast Yes [id number] 10mg Take 1 [facility] 10 mg 5-18 tablet by ity of tablet 00:00: mouth [place] 00 every Medical evening. [place] montelukast Yes [id number] 10mg Take 1 [facility] 10 mg 5-18 tablet by ity of tablet 00:00: mouth [place] 00 every Medical evening. [place] montelukast Yes [id number] 10mg Take 1 [facility] 10 mg 5-18 tablet by [facility] of tablet 00:00: mouth [place] 00 every Medical evening. [place] montelukast Yes [id number] 10mg Take 1 [facility] 10 mg 5-18 tablet by ity of tablet 00:00: mouth [place] 00 every Medical evening. [place] montelukast Yes [id number] 10mg Take 1 [facility] 10 mg 5-18 tablet by ity of tablet 00:00: mouth [place] 00 every Medical evening. [place] montelukast Yes [id number] 10mg Take 1 [facility] 10 mg 5-18 tablet by it[facility] of tablet 00:00: mouth [place] 00 every Medical evening. [place] montelukast Yes [id number] 10mg Take 1 [facility] 10 mg 5-18 tablet by ity of tablet 00:00: mouth [place] 00 every Medical evening. [facility] montelukast 2022- Yes [id number] 10mg Take 1 [facility] 10 mg 5-18 tablet by [facility] of tablet 00:00: mouth [place] 00 every Medical evening. [facility] montelukast 0 Yes [id number] 10mg Take 1 [facility] 10 mg 5-18 tablet by [facility] of tablet 00:00: mouth [place] 00 every Medical evening. [facility] montelukast 2022-0 Yes [id number] 10mg Take 1 [facility] 10 mg 5-18 tablet by [facility]y of tablet 00:00: mouth [place] 00 every Medical evening. [facility] montelukast 2022- No [id number] 10mg Take 1 [facility] 10 mg 5-18 08-09 tablet by [facility] of tablet 00:00: 00:00 mouth [place] 00 :00 every Medical evening. Branch amoxicillin 2022- No [id number] 1{tbl} Take 1 [facility] -clavulanat 5-12 05-20 tablet by it y of e 00:00: 04:59 mouth 2 [place] (AUGMENTIN) 00 :00 (two) Medical 875-125 mg times Branch per tablet daily for 7 days. nystatin 2022- No [id number] Take 5 mL [facility] 100,000 5-12 05-20 by mouth 4 ity o f unit/mL 00:00: 04:59 (four) [place] suspension 00 :00 times Medical daily for Branch 7 days. amoxicillin 2022- No [id number] 1{tbl} Take 1 [facility] -clavulanat 5-12 05-20 tablet by it y of e 00:00: 04:59 mouth 2 [place] (AUGMENTIN) 00 :00 (two) Medical 875-125 mg times Branch per tablet daily for 7 days. nystatin 2022- No [id number] Take 5 mL [facility] 100,000 5-12 05-20 by mouth 4 ity o f unit/mL 00:00: 04:59 (four) [place] suspension 00 :00 times Medical daily for Branch 7 days. amoxicillin 2022- No [id number] 1{tbl} Take 1 [facility] -clavulanat 5-12 05-20 tablet by it y of e 00:00: 04:59 mouth 2 [place] (AUGMENTIN) 00 :00 (two) Medical 875-125 mg times Branch per tablet daily for 7 days. nystatin 2022-0 2022- No [id number] Take 5 mL [facility] 100,000 5-12 05-20 by mouth 4 ity o f unit/mL 00:00: 04:59 (four) [place] suspension 00 :00 times Medical daily for Branch 7 days. amoxicillin 2022- No [id number] 1{tbl} Take 1 [facility] -clavulanat 5-12 05-20 tablet by it y of e 00:00: 04:59 mouth 2 [place] (AUGMENTIN) 00 :00 (two) Medical 875-125 mg times Branch per tablet daily for 7 days. nystatin 2022-2022- No [id number] Take 5 mL [facility] 100,000 5-12 05-20 by mouth 4 ity o f unit/mL 00:00: 04:59 (four) [place] suspension 00 :00 times Medical daily for Branch 7 days. amoxicillin 2022-2022- No [id number] 1{tbl} Take 1 [facility] -clavulanat 5-12 05-20 tablet by it y of e 00:00: 04:59 mouth 2 [place] (AUGMENTIN) 00 :00 (two) Medical 875-125 mg times Branch per tablet daily for 7 days. nystatin 2022- No [id number] Take 5 mL [facility] 100,000 5-12 05-20 by mouth 4 ity o f unit/mL 00:00: 04:59 (four) [place] suspension 00 :00 times Medical daily for Branch 7 days. amoxicillin 2022- No [id number] 1{tbl} Take 1 [facility] -clavulanat 5-12 05-20 tablet by it y of e 00:00: 04:59 mouth 2 [place] (AUGMENTIN) 00 :00 (two) Medical 875-125 mg times Branch per tablet daily for 7 days. nystatin 2022- No [id number] Take 5 mL [facility] 100,000 5-12 05-20 by mouth 4 ity o f unit/mL 00:00: 04:59 (four) [place] suspension 00 :00 times Medical daily for Branch 7 days. irbesartan 3-0 Yes [id number] 150mg Take 1 [facility] 150 mg 4-24 tablet by ity of tablet 00:00: mouth at [place] [address] bedtime. Medical Branch irbesartan 3-0 Yes [id number] 150mg Take 1 [facility] 150 mg 4-24 tablet by ity of tablet 00:00: mouth at [place] [address] bedtime. Medical Branch irbesartan 3-0 Yes [id number] 150mg Take 1 [facility] 150 mg 4-24 tablet by ity of tablet 00:00: mouth at [place] [address] bedtime. Medical Branch irbesartan 3-0 Yes [id number] 150mg Take 1 [facility] 150 mg 4-24 tablet by ity of tablet 00:00: mouth at [place] [address] bedtime. Medical Branch irbesartan 3-0 Yes [id number] 150mg Take 1 [facility] 150 mg 4-24 tablet by ity of tablet 00:00: mouth at [place] [address] bedtime. Medical Branch irbesartan 3-0 Yes [id number] 150mg Take 1 [facility] 150 mg 4-24 tablet by ity of tablet 00:00: mouth at [place] [address] bedtime. Medical Branch irbesartan 3-0 Yes [id number] 150mg Take 1 [facility] 150 mg 4-24 tablet by ity of tablet 00:00: mouth at [place] [address] bedtime. Medical Branch irbesartan 3-0 Yes [id number] 150mg Take 1 [facility] 150 mg 4-24 tablet by ity of tablet 00:00: mouth at [place] [address] bedtime. Medical Branch irbesartan 3-0 Yes [id number] 150mg Take 1 [facility] 150 mg 4-24 tablet by ity of tablet 00:00: mouth at [place] [address] bedtime. Medical Branch irbesartan 3-0 Yes [id number] 150mg Take 1 [facility] 150 mg 4-24 tablet by ity of tablet 00:00: mouth at [place] [address] bedtime. Medical Branch irbesartan 2023-0 Yes [id number] 150mg Take 1 [facility] 150 mg 4-24 tablet by ity of tablet 00:00: mouth at [place] [address] bedtime. Medical Branch irbesartan 2023-0 Yes [id number] 150mg Take 1 [facility] 150 mg 4-24 tablet by ity of tablet 00:00: mouth at [place] [address] bedtime. Medical Branch irbesartan 2023-0 Yes [id number] 150mg Take 1 [facility] 150 mg 4-24 tablet by ity of tablet 00:00: mouth at [place] [address] bedtime. Medical Branch irbesartan 2023-0 Yes [id number] 150mg Take 1 [facility] 150 mg 4-24 tablet by ity of tablet 00:00: mouth at [place] [address] bedtime. Medical Branch irbesartan 2023-0 Yes [id number] 150mg Take 1 [facility] 150 mg 4-24 tablet by ity of tablet 00:00: mouth at [place] [address] bedtime. Medical Branch irbesartan 2023-0 Yes [id number] 150mg Take 1 [facility] 150 mg 4-24 tablet by ity of tablet 00:00: mouth at [place] [address] bedtime. Medical Branch irbesartan 3-0 Yes [id number] 150mg Take 1 [facility] 150 mg 4-24 tablet by ity of tablet 00:00: mouth at [place] [address] bedtime. Medical Branch irbesartan 3-0 Yes [id number] 150mg Take 1 [facility] 150 mg 4-24 tablet by ity of tablet 00:00: mouth at [place] [address] bedtime. Medical Branch irbesartan 3-0 Yes [id number] 150mg Take 1 [facility] 150 mg 4-24 tablet by ity of tablet 00:00: mouth at [place] [address] bedtime. Medical Branch irbesartan 3-0 Yes [id number] 150mg Take 1 [facility] 150 mg 4-24 tablet by ity of tablet 00:00: mouth at [place] [address] bedtime. Medical Branch irbesartan 3-0 Yes [id number] 150mg Take 1 [facility] 150 mg 4-24 tablet by ity of tablet 00:00: mouth at [place] [address] bedtime. Medical Branch irbesartan 2023-0 Yes [id number] 150mg Take 1 [facility] 150 mg 4-24 tablet by ity of tablet 00:00: mouth at [place] [address] bedtime. Medical Branch irbesartan 2023-0 Yes [id number] 150mg Take 1 [facility] 150 mg 4-24 tablet by ity of tablet 00:00: mouth at [place] [address] bedtime. Medical Branch irbesartan 2023-0 Yes [id number] 150mg Take 1 [facility] 150 mg 4-24 tablet by ity of tablet 00:00: mouth at [place] [address] bedtime. Medical Branch irbesartan 2023-0 Yes [id number] 150mg Take 1 [facility] 150 mg 4-24 tablet by ity of tablet 00:00: mouth at [place] [address] bedtime. Medical Branch irbesartan 2023-0 Yes [id number] 150mg Take 1 [facility] 150 mg 4-24 tablet by ity of tablet 00:00: mouth at [place] [address] bedtime. Medical Branch irbesartan 3-0 Yes [id number] 150mg Take 1 [facility] 150 mg 4-24 tablet by ity of tablet 00:00: mouth at [place] [address] bedtime. Medical Branch irbesartan 3-0 Yes [id number] 150mg Take 1 [facility] 150 mg 4-24 tablet by ity of tablet 00:00: mouth at [place] [address] bedtime. Medical Branch irbesartan 3-0 Yes [id number] 150mg Take 1 [facility] 150 mg 4-24 tablet by ity of tablet 00:00: mouth at [place] [address] bedtime. Medical Branch irbesartan 3-0 Yes [id number] 150mg Take 1 [facility] 150 mg 4-24 tablet by ity of tablet 00:00: mouth at [place] [address] bedtime. Medical Branch irbesartan 3-0 Yes [id number] 150mg Take 1 [facility] 150 mg 4-24 tablet by ity of tablet 00:00: mouth at [place] [address] bedtime. Medical Branch irbesartan 3-0 Yes [id number] 150mg Take 1 [facility] 150 mg 4-24 tablet by ity of tablet 00:00: mouth at [place] [address] bedtime. Medical [facility] irbesartan 3-0 Yes [id number] 150mg Take 1 [facility] 150 mg 4-24 tablet by ity of tablet 00:00: mouth at [place] [address] bedtime. Medical [facility] irbesartan 3-0 Yes [id number] 150mg Take 1 [facility] 150 mg 4-24 tablet by ity of tablet 00:00: mouth at [place] [address] bedtime. Medical [facility] irbesartan 3-0 Yes [id number] 150mg Take 1 [facility] 150 mg 4-24 tablet by ity of tablet 00:00: mouth at [place] [address] bedtime. Medical Branch irbesartan 2023-0 Yes [id number] 150mg Take 1 [facility] 150 mg 4-24 tablet by ity of tablet 00:00: mouth at [place] [address] bedtime. Medical [facility] irbesartan 2023-0 Yes [id number] 150mg Take 1 [facility] 150 mg 4-24 tablet by ity of tablet 00:00: mouth at [place] [address] bedtime. Medical Branch irbesartan 2023-0 Yes [id number] 150mg Take 1 [facility] 150 mg 4-24 tablet by ity of tablet 00:00: mouth at [place] [address] bedtime. Medical Branch irbesartan 2023-0 Yes [id number] 150mg Take 1 [facility] 150 mg 4-24 tablet by ity of tablet 00:00: mouth at [place] [address] bedtime. Medical Branch irbesartan 2023-0 Yes [id number] 150mg Take 1 [facility] 150 mg 4-24 tablet by ity of tablet 00:00: mouth at [place] [address] bedtime. Medical Branch irbesartan 2023-0 Yes [id number] 150mg Take 1 [facility] 150 mg 4-24 tablet by ity of tablet 00:00: mouth at [place] [address] bedtime. Medical Branch irbesartan 3-0 Yes [id number] 150mg Take 1 [facility] 150 mg 4-24 tablet by ity of tablet 00:00: mouth at [place] [address] bedtime. Medical Branch irbesartan 3-0 Yes [id number] 150mg Take 1 [facility] 150 mg 4-24 tablet by ity of tablet 00:00: mouth at [place] [address] bedtime. Medical Branch irbesartan 3-0 Yes [id number] 150mg Take 1 [facility] 150 mg 4-24 tablet by ity of tablet 00:00: mouth at [place] [address] bedtime. Medical Branch irbesartan 3-0 Yes [id number] 150mg Take 1 [facility] 150 mg 4-24 tablet by ity of tablet 00:00: mouth at [place] [address] bedtime. Medical Branch irbesartan 3-0 Yes [id number] 150mg Take 1 [facility] 150 mg 4-24 tablet by ity of tablet 00:00: mouth at [place] [address] bedtime. Medical Branch irbesartan 2023-0 Yes [id number] 150mg Take 1 [facility] 150 mg 4-24 tablet by ity of tablet 00:00: mouth at [place] [address] bedtime. Medical Branch irbesartan 2023-0 Yes [id number] 150mg Take 1 [facility] 150 mg 4-24 tablet by [facility]y of tablet 00:00: mouth at [place] [address] bedtime. Medical Branch irbesartan 2023-0 Yes [id number] 150mg Take 1 [facility] 150 mg 4-24 tablet by [facility] of tablet 00:00: mouth at [place] [address] bedtime. Medical Branch irbesartan 2023-0 Yes [id number] 150mg Take 1 [facility] 150 [facility]-24 tablet by [facility] tablet 00:00: mouth at [place] [address] bedtime. [facility] irbesartan 2023-0 Yes [id number] 150mg Take 1 [facility] 150 mg 4-24 tablet by [facility] tablet 00:00: mouth at [place] [address] bedtime. [facility] irbesartan 3-0 Yes [id number] 150mg Take 1 [facility] 150 mg 4-24 tablet by [facility] tablet 00:00: mouth at [place] [address] bedtime. [facility] irbesartan 3-0 Yes [id number] 150mg Take 1 [facility] 150 mg 4-24 tablet by [facility] tablet 00:00: mouth at [place] [address] bedtime. [facility] irbesartan 3-0 Yes [id number] 150mg Take 1 [facility] 150 mg 4-24 tablet by [facility] tablet 00:00: mouth at [place] [address] bedtime. [facility] irbesartan 3-0 Yes [id number] 150mg Take 1 [facility] 150 mg 4-24 tablet by [facility] tablet 00:00: mouth at [place] [address] bedtime. [facility] irbesartan 3-0 Yes [id number] 150mg Take 1 [facility] 150 mg 4-24 tablet by [facility] tablet 00:00: mouth at [place] [address] bedtime. [facility] irbesartan 3-0 Yes [id number] 150mg Take 1 [facility] 150 mg 4-24 tablet by [facility] tablet 00:00: mouth at [place] [address] bedtime. [facility] irbesartan 3-0 Yes [id number] 150mg Take 1 [facility] 150 mg 4-24 tablet by [facility] tablet 00:00: mouth at [place] [address] bedtime. [facility] irbesartan 3-0 Yes [id number] 150mg Take 1 [facility] 150 mg 4-24 tablet by [facility] tablet 00:00: mouth at [place] [address] bedtime. [facility] irbesartan 3-0 Yes [id number] 150mg Take 1 [facility] 150 mg 4-24 tablet by [facility] tablet 00:00: mouth at [place] [address] bedtime. [facility] irbesartan 2023-0 Yes [id number] 150mg Take 1 [facility] 150 mg 4-24 tablet by [facility] tablet 00:00: mouth at [place] [address] bedtime. [facility] irbesartan 2023-0 Yes [id number] 150mg Take 1 [facility] 150 mg 4-24 tablet by [facility] tablet 00:00: mouth at [place] [address] bedtime. [facility] irbesartan 2023-0 Yes [id number] 150mg Take 1 [facility] 150 mg 4-24 tablet by [facility] tablet 00:00: mouth at [place] [address] bedtime. [facility] irbesartan 2023-0 Yes [id number] 150mg Take 1 [facility] 150 mg 4-24 tablet by [facility] tablet 00:00: mouth at [place] [address] bedtime. [facility] irbesartan 2023-0 Yes [id number] 150mg Take 1 [facility] 150 mg 4-24 tablet by [facility] tablet 00:00: mouth at [place] [address] bedtime. [facility] irbesartan 2023-0 Yes [id number] 150mg Take 1 [facility] 150 mg 4-24 tablet by [facility] tablet 00:00: mouth at [place] [address] bedtime. [facility] irbesartan 3-0 Yes [id number] 150mg Take 1 [facility] 150 mg 4-24 tablet by [facility] tablet 00:00: mouth at [place] [address] bedtime. [facility] irbesartan 3-0 Yes [id number] 150mg Take 1 [facility] 150 mg 4-24 tablet by [facility] tablet 00:00: mouth at [place] [address] bedtime. [facility] irbesartan 3-0 Yes [id number] 150mg Take 1 [facility] 150 mg 4-24 tablet by [facility] tablet 00:00: mouth at [place] [address] bedtime. [facility] irbesartan 3-0 Yes [id number] 150mg Take 1 [facility] 150 mg 4-24 tablet by [facility] tablet 00:00: mouth at [place] [address] bedtime. [facility] irbesartan 3-0 Yes [id number] 150mg Take 1 [facility] 150 mg 4-24 tablet by [facility] tablet 00:00: mouth at [place] [address] bedtime. [facility] irbesartan 2023-0 Yes [id number] 150mg Take 1 [facility] 150 mg 4-24 tablet by [facility] tablet 00:00: mouth at [place] [address] bedtime. [facility] irbesartan 2023-0 Yes [id number] 150mg Take 1 [facility] 150 mg 4-24 tablet by [facility] tablet 00:00: mouth at [place] [address] bedtime. [facility] irbesartan 2023-0 Yes [id number] 150mg Take 1 [facility] 150 mg 4-24 tablet by [facility] tablet 00:00: mouth at [place] [address] bedtime. [facility] irbesartan 2023-0 Yes [id number] 150mg Take 1 [facility] 150 mg 4-24 tablet by [facility] tablet 00:00: mouth at [place] [address] bedtime. [facility] irbesartan 2023-0 Yes [id number] 150mg Take 1 [facility] 150 mg 4-24 tablet by [facility] tablet 00:00: mouth at [place] [address] bedtime. [facility] irbesartan 3-0 Yes [id number] 150mg Take 1 [facility] 150 mg 4-24 tablet by [facility] tablet 00:00: mouth at [place] [address] bedtime. [facility] irbesartan 3-0 Yes [id number] 150mg Take 1 [facility] 150 mg 4-24 tablet by [facility] tablet 00:00: mouth at [place] [address] bedtime. [facility] irbesartan 3-0 Yes [id number] 150mg Take 1 [facility] 150 mg 4-24 tablet by [facility] tablet 00:00: mouth at [place] [address] bedtime. [facility] irbesartan 3-0 Yes [id number] 150mg Take 1 [facility] 150 mg 4-24 tablet by [facility] tablet 00:00: mouth at [place] [address] bedtime. [facility] irbesartan 3-0 Yes [id number] 150mg Take 1 [facility] 150 mg 4-24 tablet by [facility] tablet 00:00: mouth at [place] [address] bedtime. [facility] irbesartan 2022-0 Yes [id number] 150mg Take 1 [facility] 150 mg 4-24 tablet by [facility] tablet 00:00: mouth at [place] [address] bedtime. [facility] irbesartan 3-0 Yes [id number] 150mg Take 1 [facility] 150 mg 4-24 tablet by [facility] tablet 00:00: mouth at [place] bedtime. [facility] irbesartan 3-0 Yes [id number] 150mg Take 1 [facility] 150 mg 4-24 tablet by [facility] tablet 00:00: mouth at [place] [address] bedtime. [facility] omeprazole 2023-0 Yes [id number] 20mg Take 1 [facility] 20 mg 4-21 capsule by [facility] capsule 00:00: mouth [place] 00 daily. [facility] omeprazole 2023-0 Yes [id number] 20mg Take 1 [facility] 20 mg 4-21 capsule by [facility] capsule 00:00: mouth [place] 00 daily. [facility] omeprazole 3-0 Yes [id number] 20mg Take 1 [facility] 20 mg 4-21 capsule by [facility] capsule 00:00: mouth [place] 00 daily. [facility] omeprazole 3-0 Yes [id number] 20mg Take 1 [facility] 20 mg 4-21 capsule by [facility] capsule 00:00: mouth [place] 00 daily. [facility] omeprazole 2023-0 Yes [id number] 20mg Take 1 [facility] 20 mg 4-21 capsule by [facility] capsule 00:00: mouth [place] 00 daily. [facility] omeprazole 2023-0 Yes [id number] 20mg Take 1 [facility] 20 mg 4-21 capsule by [facility] capsule 00:00: mouth [place] 00 daily. [facility] omeprazole 2023-0 Yes [id number] 20mg Take 1 [facility] 20 mg 4-21 capsule by [facility] capsule 00:00: mouth [place] 00 daily. [facility] omeprazole 2023-0 Yes [id number] 20mg Take 1 [facility] 20 mg 4-21 capsule by [facility] capsule 00:00: mouth [place] 00 daily. [facility] omeprazole 3-0 Yes [id number] 20mg Take 1 [facility] 20 mg 4-21 capsule by [facility] capsule 00:00: mouth [place] 00 daily. [facility] omeprazole 3-0 Yes [id number] 20mg Take 1 [facility] 20 mg 4-21 capsule by [facility] capsule 00:00: mouth [place] 00 daily. [facility] omeprazole 3-0 Yes [id number] 20mg Take 1 [facility] 20 mg 4-21 capsule by [facility] capsule 00:00: mouth [place] 00 daily. [facility] omeprazole 3-0 Yes [id number] 20mg Take 1 [facility] 20 mg 4-21 capsule by [facility] capsule 00:00: mouth [place] 00 daily. [facility] omeprazole 2023-0 Yes [id number] 20mg Take 1 [facility] 20 mg 4-21 capsule by [facility] capsule 00:00: mouth [place] 00 daily. [facility] omeprazole 2023-0 Yes [id number] 20mg Take 1 [facility] 20 mg 4-21 capsule by [facility] capsule 00:00: mouth [place] 00 daily. [facility] omeprazole 2023-0 Yes [id number] 20mg Take 1 [facility] 20 mg 4-21 capsule by [facility] capsule 00:00: mouth [place] 00 daily. [facility] omeprazole 2023-0 Yes [id number] 20mg Take 1 [facility] 20 mg 4-21 capsule by [facility] capsule 00:00: mouth [place] 00 daily. [facility] omeprazole 2023-0 Yes [id number] 20mg Take 1 [facility] 20 mg 4-21 capsule by [facility] capsule 00:00: mouth [place] 00 daily. [facility] omeprazole 2023-0 Yes [id number] 20mg Take 1 [facility] 20 mg 4-21 capsule by [facility] capsule 00:00: mouth [place] 00 daily. [facility] omeprazole 2022-0 Yes [id number] 20mg Take 1 [facility] 20 mg 4-21 capsule by [facility] capsule 00:00: mouth [place] 00 daily. [facility] omeprazole 2022-0 Yes [id number] 20mg Take 1 [facility] 20 mg 4-21 capsule by [facility] capsule 00:00: mouth [place] 00 daily. [facility] omeprazole 2022-0 Yes [id number] 20mg Take 1 [facility] 20 mg 4-21 capsule by [facility] capsule 00:00: mouth [place] 00 daily. [facility] omeprazole 2022-0 Yes [id number] 20mg Take 1 [facility] 20 mg 4-21 capsule by [facility] capsule 00:00: mouth [place] 00 daily. [facility] omeprazole 2022-0 Yes [id number] 20mg Take 1 [facility] 20 mg 4-21 capsule by [facility] capsule 00:00: mouth [place] 00 daily. [facility] omeprazole 2022-0 Yes [id number] 20mg Take 1 [facility] 20 mg 4-21 capsule by [facility] capsule 00:00: mouth [place] 00 daily. [facility] omeprazole 2022-0 Yes [id number] 20mg Take 1 [facility] 20 mg 4-21 capsule by [facility] capsule 00:00: mouth [place] 00 daily. [facility] omeprazole 2022-0 Yes [id number] 20mg Take 1 [facility] 20 mg 4-21 capsule by [facility] capsule 00:00: mouth [place] 00 daily. [facility] omeprazole 2022-0 Yes [id number] 20mg Take 1 [facility] 20 mg 4-21 capsule by [facility] capsule 00:00: mouth [place] 00 daily. [facility] omeprazole 2022-0 2023- No [id number] 20mg Take 1 [facility] 20 mg 4-21 07-13 capsule by [facility] capsule 00:00: 00:00 mouth [place] 00 :00 daily. [facility] calcium 2022-0 Yes 650mg Take 650 [facility] rs carbonate 3-29 mg by [facility] 650 mg 14:00: mouth [place] calcium 07 daily. Medical (1,625 mg) Branch tablet calcium 2022-0 Yes 650mg Take 650 [facility] rs carbonate 3-29 mg by [facility] 650 mg 14:00: mouth [place] calcium 07 daily. Medical (1,625 mg) Branch tablet calcium 2023-0 Yes 650mg Take 650 [facility] rs carbonate 3-29 mg by [facility] 650 mg 14:00: mouth [place] calcium 07 daily. Medical (1,625 mg) Branch tablet calcium 2023-0 Yes 650mg Take 650 [facility] rs carbonate 3-29 mg by [facility] 650 mg 14:00: mouth [place] calcium 07 daily. Medical (1,625 mg) Branch tablet calcium 2023-0 Yes 650mg Take 650 [facility] rs carbonate 3-29 mg by [facility] 650 mg 14:00: mouth [place] calcium 07 daily. Medical (1,625 mg) Branch tablet calcium 2023-0 Yes 650mg Take 650 [facility] rs carbonate 3-29 mg by [facility] of 650 mg 14:00: mouth [place] calcium 07 daily. Medical (1,625 mg) Branch tablet calcium 2023-0 Yes 650mg Take 650 [facility] rs carbonate 3-29 mg by [facility] of 650 mg 14:00: mouth [place] calcium 07 daily. Medical (1,625 mg) Branch tablet calcium 2023-0 Yes 650mg Take 650 [facility] rs carbonate 3-29 mg by [facility] 650 mg 14:00: mouth [place] calcium 07 daily. Medical (1,625 mg) Branch tablet calcium 2023-0 Yes 650mg Take 650 [facility] rs carbonate 3-29 mg by [facility] of 650 mg 14:00: mouth [place] calcium 07 daily. Medical (1,625 mg) Branch tablet calcium 2023-0 Yes 650mg Take 650 [facility] rs carbonate 3-29 mg by [facility] of 650 mg 14:00: mouth [place] calcium 07 daily. Medical (1,625 mg) Branch tablet calcium 2023-0 Yes 650mg Take 650 [facility] rs carbonate 3-29 mg by [facility] of 650 mg 14:00: mouth [place] calcium 07 daily. Medical (1,625 mg) Branch tablet calcium 2023-0 Yes 650mg Take 650 [facility] rs carbonate 3-29 mg by [facility] of 650 mg 14:00: mouth [place] calcium 07 daily. Medical (1,625 mg) Branch tablet calcium 2023-0 Yes 650mg Take 650 [facility] rs carbonate 3-29 mg by [facility] of 650 mg 14:00: mouth [place] calcium 07 daily. Medical (1,625 mg) Branch tablet calcium 2023-0 Yes 650mg Take 650 [facility] rs carbonate 3-29 mg by [facility] of 650 mg 14:00: mouth [place] calcium 07 daily. Medical (1,625 mg) Branch tablet calcium 2023-0 Yes 650mg Take 650 [facility] rs carbonate 3-29 mg by [facility] of 650 mg 14:00: mouth [place] calcium 07 daily. Medical (1,625 mg) Branch tablet calcium 2023-0 Yes 650mg Take 650 [facility] rs carbonate 3-29 mg by [facility] of 650 mg 14:00: mouth [place] calcium 07 daily. Medical (1,625 mg) Branch tablet calcium 2023-0 Yes 650mg Take 650 [facility] rs carbonate 3-29 mg by [facility] of 650 mg 14:00: mouth [place] calcium 07 daily. Medical (1,625 mg) Branch tablet calcium 2023-0 Yes 650mg Take 650 [facility] rs carbonate 3-29 mg by [facility] of 650 mg 14:00: mouth [place] calcium 07 daily. Medical (1,625 mg) Branch tablet calcium 2023-0 Yes 650mg Take 650 [facility] rs carbonate 3-29 mg by [facility] of 650 mg 14:00: mouth [place] calcium 07 daily. Medical (1,625 mg) Branch tablet calcium 2023-0 Yes 650mg Take 650 [facility] rs carbonate 3-29 mg by [facility] of 650 mg 14:00: mouth [place] calcium 07 daily. Medical (1,625 mg) Branch tablet calcium 2023-0 Yes 650mg Take 650 [facility] rs carbonate 3-29 mg by [facility] of 650 mg 14:00: mouth [place] calcium 07 daily. Medical (1,625 mg) Branch tablet calcium 2023-0 Yes 650mg Take 650 [facility] rs carbonate 3-29 mg by [facility] of 650 mg 14:00: mouth [place] calcium 07 daily. Medical (1,625 mg) Branch tablet calcium 2023-0 Yes 650mg Take 650 [facility] rs carbonate 3-29 mg by [facility] of 650 mg 14:00: mouth [place] calcium 07 daily. Medical (1,625 mg) Branch tablet calcium 2023-0 Yes 650mg Take 650 [facility] rs carbonate 3-29 mg by [facility] of 650 mg 14:00: mouth [place] calcium 07 daily. Medical (1,625 mg) Branch tablet calcium 2023-0 Yes 650mg Take 650 [facility] rs carbonate 3-29 mg by [facility] of 650 mg 14:00: mouth [place] calcium 07 daily. Medical (1,625 mg) Branch tablet calcium 2023-0 Yes 650mg Take 650 [facility] rs carbonate 3-29 mg by [facility] of 650 mg 14:00: mouth [place] calcium 07 daily. Medical (1,625 mg) Branch tablet calcium 2023-0 Yes 650mg Take 650 [facility] rs carbonate 3-29 mg by [facility] of 650 mg 14:00: mouth [place] calcium 07 daily. Medical (1,625 mg) Branch tablet calcium 2023-0 Yes 650mg Take 650 [facility] rs carbonate 3-29 mg by [facility] of 650 mg 14:00: mouth [place] calcium 07 daily. Medical (1,625 mg) Branch tablet calcium 2023-0 Yes 650mg Take 650 [facility] rs carbonate 3-29 mg by [facility] of 650 mg 14:00: mouth [place] calcium 07 daily. Medical (1,625 mg) Branch tablet calcium 2023-0 Yes 650mg Take 650 [facility] rs carbonate 3-29 mg by [facility] of 650 mg 14:00: mouth [place] calcium 07 daily. Medical (1,625 mg) Branch tablet calcium 2023-0 Yes 650mg Take 650 [facility] rs carbonate 3-29 mg by [facility] of 650 mg 14:00: mouth [place] calcium 07 daily. Medical (1,625 mg) Branch tablet calcium 2023-0 Yes 650mg Take 650 [facility] rs carbonate 3-29 mg by [facility] of 650 mg 14:00: mouth [place] calcium 07 daily. Medical (1,625 mg) Branch tablet calcium 2023-0 Yes 650mg Take 650 [facility] rs carbonate 3-29 mg by [facility] of 650 mg 14:00: mouth [place] calcium 07 daily. Medical (1,625 mg) Branch tablet calcium 2023-0 Yes 650mg Take 650 [facility] rs carbonate 3-29 mg by [facility] of 650 mg 14:00: mouth [place] calcium 07 daily. Medical (1,625 mg) Branch tablet calcium 2023-0 Yes 650mg Take 650 [facility] rs carbonate 3-29 mg by [facility] of 650 mg 14:00: mouth [place] calcium 07 daily. Medical (1,625 mg) Branch tablet calcium 2023-0 Yes 650mg Take 650 [facility] rs carbonate 3-29 mg by [facility] of 650 mg 14:00: mouth [place] calcium 07 daily. Medical (1,625 mg) Branch tablet calcium 2023-0 Yes 650mg Take 650 [facility] rs carbonate 3-29 mg by [facility] of 650 mg 14:00: mouth [place] calcium 07 daily. Medical (1,625 mg) Branch tablet calcium 2023-0 Yes 650mg Take 650 [facility] rs carbonate 3-29 mg by [facility] of 650 mg 14:00: mouth [place] calcium 07 daily. Medical (1,625 mg) Branch tablet calcium 2023-0 Yes 650mg Take 650 [facility] rs carbonate 3-29 mg by [facility] of 650 mg 14:00: mouth [place] calcium 07 daily. Medical (1,625 mg) Branch tablet calcium 2023-0 Yes 650mg Take 650 [facility] rs carbonate 3-29 mg by [facility] of 650 mg 14:00: mouth [place] calcium 07 daily. Medical (1,625 mg) Branch tablet calcium 2023-0 Yes 650mg Take 650 [facility] rs carbonate 3-29 mg by [facility] of 650 mg 14:00: mouth [place] calcium 07 daily. Medical (1,625 mg) Branch tablet calcium 2023-0 Yes 650mg Take 650 [facility] rs carbonate 3-29 mg by [facility] of 650 mg 14:00: mouth [place] calcium 07 daily. Medical (1,625 mg) Branch tablet calcium 2023-0 Yes 650mg Take 650 [facility] rs carbonate 3-29 mg by [facility] of 650 mg 14:00: mouth [place] calcium 07 daily. Medical (1,625 mg) Branch tablet calcium 2023-0 Yes 650mg Take 650 [facility] rs carbonate 3-29 mg by [facility] of 650 mg 14:00: mouth [place] calcium 07 daily. Medical (1,625 mg) Branch tablet calcium 2023-0 Yes 650mg Take 650 [facility] rs carbonate 3-29 mg by [facility] of 650 mg 14:00: mouth [place] calcium 07 daily. Medical (1,625 mg) Branch tablet calcium 2023-0 Yes 650mg Take 650 [facility] rs carbonate 3-29 mg by [facility] of 650 mg 14:00: mouth [place] calcium 07 daily. Medical (1,625 mg) Branch tablet calcium 2023-0 Yes 650mg Take 650 [facility] rs carbonate 3-29 mg by [facility] of 650 mg 14:00: mouth [place] calcium 07 daily. Medical (1,625 mg) Branch tablet calcium 2023-0 Yes 650mg Take 650 [facility] rs carbonate 3-29 mg by [facility] of 650 mg 14:00: mouth [place] calcium 07 daily. Medical (1,625 mg) Branch tablet calcium 2023-0 Yes 650mg Take 650 [facility] rs carbonate 3-29 mg by [facility] of 650 mg 14:00: mouth [place] calcium 07 daily. Medical (1,625 mg) Branch tablet calcium 2023-0 Yes 650mg Take 650 [facility] rs carbonate 3-29 mg by [facility] of 650 mg 14:00: mouth [place] calcium 07 daily. Medical (1,625 mg) Branch tablet calcium 2023-0 Yes 650mg Take 650 [facility] rs carbonate 3-29 mg by [facility] of 650 mg 14:00: mouth [place] calcium 07 daily. Medical (1,625 mg) Branch tablet calcium 2023-0 Yes 650mg Take 650 [facility] rs carbonate 3-29 mg by [facility] of 650 mg 14:00: mouth [place] calcium 07 daily. Medical (1,625 mg) Branch tablet calcium 2023-0 Yes 650mg Take 650 [facility] rs carbonate 3-29 mg by [facility] of 650 mg 14:00: mouth [place] calcium 07 daily. Medical (1,625 mg) Branch tablet calcium 2023-0 Yes 650mg Take 650 [facility] rs carbonate 3-29 mg by [facility] of 650 mg 14:00: mouth [place] calcium 07 daily. Medical (1,625 mg) Branch tablet calcium 2023-0 Yes 650mg Take 650 [facility] rs carbonate 3-29 mg by [facility] of 650 mg 14:00: mouth [place] calcium 07 daily. Medical (1,625 mg) Branch tablet calcium 2023-0 Yes 650mg Take 650 [facility] rs carbonate 3-29 mg by [facility] of 650 mg 14:00: mouth [place] calcium 07 daily. Medical (1,625 mg) Branch tablet calcium 2023-0 Yes 650mg Take 650 [facility] rs carbonate 3-29 mg by [facility] of 650 mg 14:00: mouth [place] calcium 07 daily. Medical (1,625 mg) Branch tablet calcium 2023-0 Yes 650mg Take 650 [facility] rs carbonate 3-29 mg by [facility] of 650 mg 14:00: mouth [place] calcium 07 daily. Medical (1,625 mg) Branch tablet calcium 2023-0 Yes 650mg Take 650 [facility] rs carbonate 3-29 mg by [facility] of 650 mg 14:00: mouth [place] calcium 07 daily. Medical (1,625 mg) Branch tablet calcium 2023-0 Yes 650mg Take 650 [facility] rs carbonate 3-29 mg by [facility] of 650 mg 14:00: mouth [place] calcium 07 daily. Medical (1,625 mg) Branch tablet calcium 2023-0 Yes 650mg Take 650 [facility] rs carbonate 3-29 mg by [facility] of 650 mg 14:00: mouth [place] calcium 07 daily. Medical (1,625 mg) Branch tablet calcium 2023-0 Yes 650mg Take 650 [facility] rs carbonate 3-29 mg by [facility] of 650 mg 14:00: mouth [place] calcium 07 daily. Medical (1,625 mg) Branch tablet calcium 2023-0 Yes 650mg Take 650 [facility] rs carbonate 3-29 mg by [facility] of 650 mg 14:00: mouth [place] calcium 07 daily. Medical (1,625 mg) Branch tablet calcium 2023-0 Yes 650mg Take 650 [facility] rs carbonate 3-29 mg by [facility] of 650 mg 14:00: mouth [place] calcium 07 daily. Medical (1,625 mg) Branch tablet calcium 2023-0 Yes 650mg Take 650 [facility] rs carbonate 3-29 mg by [facility] of 650 mg 14:00: mouth [place] calcium 07 daily. Medical (1,625 mg) Branch tablet calcium 2023-0 Yes 650mg Take 650 [facility] rs carbonate 3-29 mg by [facility] of 650 mg 14:00: mouth [place] calcium 07 daily. Medical (1,625 mg) Branch tablet calcium 2023-0 Yes 650mg Take 650 [facility] rs carbonate 3-29 mg by [facility] of 650 mg 14:00: mouth [place] calcium 07 daily. Medical (1,625 mg) Branch tablet calcium 2023-0 Yes 650mg Take 650 [facility] rs carbonate 3-29 mg by [facility] of 650 mg 14:00: mouth [place] calcium 07 daily. Medical (1,625 mg) Branch tablet calcium 2023-0 Yes 650mg Take 650 [facility] rs carbonate 3-29 mg by [facility] of 650 mg 14:00: mouth [place] calcium 07 daily. Medical (1,625 mg) Branch tablet calcium 2023-0 Yes 650mg Take 650 [facility] rs carbonate 3-29 mg by [facility] of 650 mg 14:00: mouth [place] calcium 07 daily. Medical (1,625 mg) Branch tablet calcium 2023-0 Yes 650mg Take 650 [facility] rs carbonate 3-29 mg by [facility] of 650 mg 14:00: mouth [place] calcium 07 daily. Medical (1,625 mg) Branch tablet calcium 2023-0 Yes 650mg Take 650 [facility] rs carbonate 3-29 mg by [facility] of 650 mg 14:00: mouth [place] calcium 07 daily. Medical (1,625 mg) Branch tablet calcium 2023-0 Yes 650mg Take 650 [facility] rs carbonate 3-29 mg by [facility] of 650 mg 14:00: mouth [place] calcium 07 daily. Medical (1,625 mg) Branch tablet calcium 2023-0 Yes 650mg Take 650 [facility] rs carbonate 3-29 mg by [facility] of 650 mg 14:00: mouth [place] calcium 07 daily. Medical (1,625 mg) Branch tablet calcium 2023-0 Yes 650mg Take 650 [facility] rs carbonate 3-29 mg by [facility] of 650 mg 14:00: mouth [place] calcium 07 daily. Medical (1,625 mg) Branch tablet calcium 2023-0 Yes 650mg Take 650 [facility] rs carbonate 3-29 mg by [facility] of 650 mg 14:00: mouth [place] calcium 07 daily. Medical (1,625 mg) Branch tablet calcium 2023-0 Yes 650mg Take 650 [facility] rs carbonate 3-29 mg by [facility] of 650 mg 14:00: mouth [place] calcium 07 daily. Medical (1,625 mg) Branch tablet calcium 2023-0 Yes 650mg Take 650 [facility] rs carbonate 3-29 mg by [facility] of 650 mg 14:00: mouth [place] calcium 07 daily. Medical (1,625 mg) Branch tablet calcium 2023-0 Yes 650mg Take 650 [facility] rs carbonate 3-29 mg by [facility] of 650 mg 14:00: mouth [place] calcium 07 daily. Medical (1,625 mg) Branch tablet calcium 2023-0 Yes 650mg Take 650 [facility] rs carbonate 3-29 mg by [facility] of 650 mg 14:00: mouth [place] calcium 07 daily. Medical (1,625 mg) Branch tablet calcium 2023-0 Yes 650mg Take 650 [facility] rs carbonate 3-29 mg by [facility] of 650 mg 14:00: mouth [place] calcium 07 daily. Medical (1,625 mg) Branch tablet calcium 2023-0 Yes 650mg Take 650 [facility] rs carbonate 3-29 mg by [facility] of 650 mg 14:00: mouth [place] calcium 07 daily. Medical (1,625 mg) Branch tablet calcium 2023-0 Yes 650mg Take 650 [facility] rs carbonate 3-29 mg by [facility] of 650 mg 14:00: mouth [place] calcium 07 daily. Medical (1,625 mg) Branch tablet calcium 2023-0 Yes 650mg Take 650 [facility] rs carbonate 3-29 mg by [facility] of 650 mg 14:00: mouth [place] calcium 07 daily. Medical (1,625 mg) Branch tablet calcium 2023-0 Yes 650mg Take 650 [facility] rs carbonate 3-29 mg by [facility] of 650 mg 14:00: mouth [place] calcium 07 daily. Medical (1,625 mg) Branch tablet calcium 2023-0 Yes 650mg Take 650 [facility] rs carbonate 3-29 mg by [facility] of 650 mg 14:00: mouth [place] calcium 07 daily. Medical (1,625 mg) Branch tablet calcium 2023-0 Yes 650mg Take 650 [facility] rs carbonate 3-29 mg by [facility] of 650 mg 14:00: mouth [place] calcium 07 daily. Medical (1,625 mg) Branch tablet calcium 2023-0 Yes 650mg Take 650 [facility] rs carbonate 3-29 mg by [facility] of 650 mg 14:00: mouth [place] calcium 07 daily. Medical (1,625 mg) Branch tablet calcium 2023-0 Yes 650mg Take 650 [facility] rs carbonate 3-29 mg by [facility] of 650 mg 14:00: mouth [place] calcium 07 daily. Medical (1,625 mg) Branch tablet calcium 2023-0 Yes 650mg Take 650 [facility] rs carbonate 3-29 mg by [facility] of 650 mg 14:00: mouth [place] calcium 07 daily. Medical (1,625 mg) Branch tablet calcium 2023-0 Yes 650mg Take 650 [facility] rs carbonate 3-29 mg by [facility] of 650 mg 14:00: mouth [place] calcium 07 daily. Medical (1,625 mg) Branch tablet calcium 2023-0 Yes 650mg Take 650 [facility] rs carbonate 3-29 mg by [facility] of 650 mg 14:00: mouth [place] calcium 07 daily. Medical (1,625 mg) Branch tablet calcium 2023-0 Yes 650mg Take 650 [facility] rs carbonate 3-29 mg by [facility] of 650 mg 14:00: mouth [place] calcium 07 daily. Medical (1,625 mg) Branch tablet calcium 2023-0 Yes 650mg Take 650 [facility] rs carbonate 3-29 mg by [facility] of 650 mg 14:00: mouth [place] calcium 07 daily. Medical (1,625 mg) Branch tablet calcium 2023-0 Yes 650mg Take 650 [facility] rs carbonate 3-29 mg by [facility] of 650 mg 14:00: mouth [place] calcium 07 daily. Medical (1,625 mg) Branch tablet calcium 2023-0 Yes 650mg Take 650 [facility] rs carbonate 3-29 mg by [facility] of 650 mg 14:00: mouth [place] calcium 07 daily. Medical (1,625 mg) Branch tablet calcium 2023-0 Yes 650mg Take 650 [facility] rs carbonate 3-29 mg by [facility] of 650 mg 14:00: mouth [place] calcium 07 daily. Medical (1,625 mg) Branch tablet calcium 2023-0 Yes 650mg Take 650 [facility] rs carbonate 3-29 mg by [facility] of 650 mg 14:00: mouth [place] calcium 07 daily. Medical (1,625 mg) Branch tablet calcium 2023-0 Yes 650mg Take 650 [facility] rs carbonate 3-29 mg by [facility] of 650 mg 14:00: mouth [place] calcium 07 daily. Medical (1,625 mg) Branch tablet calcium 2023-0 Yes 650mg Take 650 [facility] rs carbonate 3-29 mg by [facility] of 650 mg 14:00: mouth [place] calcium 07 daily. Medical (1,625 mg) Branch tablet calcium 2023-0 Yes 650mg Take 650 [facility] rs carbonate 3-29 mg by [facility] of 650 mg 14:00: mouth [place] calcium 07 daily. Medical (1,625 mg) Branch tablet calcium 2023-0 Yes 650mg Take 650 [facility] rs carbonate 3-29 mg by ity of 650 mg 14:00: mouth [place] calcium 07 daily. Medical (1,625 mg) Branch tablet calcium 2023-0 Yes 650mg Take 650 Un[facility] rs carbonate 3-29 mg by ity of 650 mg 14:00: mouth [place] calcium 07 daily. Medical (1,625 mg) Branch tablet fluticasone 2023-0 Yes [id number] 1{puff} Inhale 1 [facility] 3-27 Puff every it y of meteroL 00:00: 12 [place] (ADVAIR 00 (twelve) Medical DISKUS) hours. Branch 250-50 mcg/dose inhalation disk fluticasone 2023-0 Yes [id number] 1{puff} Inhale 1 [facility] 3-27 Puff every it y of meteroL 00:00: 12 [place] (ADVAIR 00 (twelve) Medical DISKUS) hours. Branch 250-50 mcg/dose inhalation disk fluticasone 2023-0 Yes [id number] 1{puff} Inhale 1 [facility] 3-27 Puff every it y of meteroL 00:00: 12 [place] (ADVAIR ) Medical DISKUS) hours. Branch 250-50 mcg/dose inhalation disk fluticasone 2023-0 Yes [id number] 1{puff} Inhale 1 [facility] 3-27 Puff every it y of meteroL 00:00: 12 [place] (ADVAIR ) Medical DISKUS) hours. Branch 250-50 mcg/dose inhalation disk fluticasone 3-0 Yes [id number] 1{puff} Inhale 1 [facility] 3-27 Puff every it y of meteroL 00:00: 12 [place] (ADVAIR ) Medical DISKUS) hours. Branch 250-50 mcg/dose inhalation disk fluticasone 3-0 Yes [id number] 1{puff} Inhale 1 [facility] 3-27 Puff every it y of meteroL 00:00: 12 [place] (ADVAIR ) Medical DISKUS) hours. Branch 250-50 mcg/dose inhalation disk fluticasone 3-0 Yes [id number] 1{puff} Inhale 1 [facility] 3-27 Puff every it y of meteroL 00:00: 12 [place] (ADVAIR ) Medical DISKUS) hours. Branch 250-50 mcg/dose inhalation disk fluticasone 3-0 Yes [id number] 1{puff} Inhale 1 [facility] 3-27 Puff every it y of meteroL 00:00: 12 [place] (ADVAIR ) Medical DISKUS) hours. Branch 250-50 mcg/dose inhalation disk fluticasone 3-0 Yes [id number] 1{puff} Inhale 1 [facility] 3-27 Puff every it y of meteroL 00:00: 12 [place] (ADVAIR ) Medical DISKUS) hours. Branch 250-50 mcg/dose inhalation disk fluticasone 2023-0 Yes [id number] 1{puff} Inhale 1 [facility] 3-27 Puff every it y of meteroL 00:00: 12 [place] (ADVAIR ) Medical DISKUS) hours. Branch 250-50 mcg/dose inhalation disk fluticasone 2023-0 Yes [id number] 1{puff} Inhale 1 [facility] 3-27 Puff every it y of meteroL 00:00: 12 [place] (ADVAIR ) Medical DISKUS) hours. Branch 250-50 mcg/dose inhalation disk fluticasone 2023-0 Yes [id number] 1{puff} Inhale 1 [facility] 3-27 Puff every it y of meteroL 00:00: 12 [place] (ADVAIR ) Medical DISKUS) hours. Branch 250-50 mcg/dose inhalation disk fluticasone 2023-0 Yes [id number] 1{puff} Inhale 1 [facility] 3-27 Puff every it y of meteroL 00:00: 12 [place] (ADVAIR ) Medical DISKUS) hours. Branch 250-50 mcg/dose inhalation disk fluticasone 2023-0 Yes [id number] 1{puff} Inhale 1 [facility] 3-27 Puff every it y of meteroL 00:00: 12 [place] (ADVAIR ) Medical DISKUS) hours. Branch 250-50 mcg/dose inhalation disk fluticasone 2023-0 Yes [id number] 1{puff} Inhale 1 [facility] 3-27 Puff every it y of meteroL 00:00: 12 [place] (ADVAIR ) Medical DISKUS) hours. Branch 250-50 mcg/dose inhalation disk fluticasone 2023-0 Yes [id number] 1{puff} Inhale 1 [facility] 3-27 Puff every it y of meteroL 00:00: 12 [place] (ADVAIR () Medical DISKUS) hours. Branch 250-50 mcg/dose inhalation disk fluticasone 2023-0 Yes [id number] 1{puff} Inhale 1 [facility] 3-27 Puff every it y of meteroL 00:00: 12 [place] (ADVAIR () Medical DISKUS) hours. Branch 250-50 mcg/dose inhalation disk fluticasone 2023-0 Yes [id number] 1{puff} Inhale 1 [facility] 3-27 Puff every it y of meteroL 00:00: 12 [place] (ADVAIR (twelve) Medical DISKUS) hours. Branch 250-50 mcg/dose inhalation disk fluticasone 2023-0 Yes [id number] 1{puff} Inhale 1 [facility] 3-27 Puff every it y of meteroL 00:00: 12 [place] (ADVAIR 00 (twelve) Medical DISKUS) hours. Branch 250-50 mcg/dose inhalation disk fluticasone 2023-0 Yes [id number] 1{puff} Inhale 1 [facility] 3-27 Puff every it y of meteroL 00:00: 12 [place] (ADVAIR 00 (twelve) Medical DISKUS) hours. Branch 250-50 mcg/dose inhalation disk fluticasone 2023-0 Yes [id number] 1{puff} Inhale 1 [facility] 3-27 Puff every it y of meteroL 00:00: 12 [place] (ADVAIR (twelve) Medical DISKUS) hours. Branch 250-50 mcg/dose inhalation disk fluticasone 2023-0 Yes [id number] 1{puff} Inhale 1 [facility] 3-27 Puff every it y of meteroL 00:00: 12 [place] (ADVAIR (twelve) Medical DISKUS) hours. Branch 250-50 mcg/dose inhalation disk fluticasone 2023-0 Yes [id number] 1{puff} Inhale 1 [facility] 3-27 Puff every it y of meteroL 00:00: 12 [place] (ADVAIR 00 (twelve) Medical DISKUS) hours. Branch 250-50 mcg/dose inhalation disk fluticasone 2023-0 Yes [id number] 1{puff} Inhale 1 [facility] 3-27 Puff every it y of meteroL 00:00: 12 [place] (ADVAIR 00 (twelve) Medical DISKUS) hours. Branch 250-50 mcg/dose inhalation disk fluticasone 2023-0 Yes [id number] 1{puff} Inhale 1 [facility] 3-27 Puff every it y of meteroL 00:00: 12 [place] (ADVAIR 00 (twelve) Medical DISKUS) hours. Branch 250-50 mcg/dose inhalation disk fluticasone 2023-0 Yes [id number] 1{puff} Inhale 1 [facility] 3-27 Puff every it y of meteroL 00:00: 12 [place] (ADVAIR ) Medical DISKUS) hours. Branch 250-50 mcg/dose inhalation disk fluticasone 2023-0 Yes [id number] 1{puff} Inhale 1 [facility] 3-27 Puff every it y of meteroL 00:00: 12 [place] (ADVAIR ) Medical DISKUS) hours. Branch 250-50 mcg/dose inhalation disk fluticasone 2023-0 Yes [id number] 1{puff} Inhale 1 [facility] 3-27 Puff every it y of meteroL 00:00: 12 [place] (ADVAIR ) Medical DISKUS) hours. Branch 250-50 mcg/dose inhalation disk fluticasone 2023-0 Yes [id number] 1{puff} Inhale 1 [facility] 3-27 Puff every it y of meteroL 00:00: 12 [place] (ADVAIR ) Medical DISKUS) hours. Branch 250-50 mcg/dose inhalation disk fluticasone 3-0 Yes [id number] 1{puff} Inhale 1 [facility] 3-27 Puff every it y of meteroL 00:00: 12 [place] (ADVAIR ) Medical DISKUS) hours. Branch 250-50 mcg/dose inhalation disk fluticasone 3-0 Yes [id number] 1{puff} Inhale 1 [facility] 3-27 Puff every it y of meteroL 00:00: 12 [place] (ADVAIR ) Medical DISKUS) hours. Branch 250-50 mcg/dose inhalation disk fluticasone 2023-0 Yes [id number] 1{puff} Inhale 1 [facility] 3-27 Puff every it y of meteroL 00:00: 12 [place] (ADVAIR ) Medical DISKUS) hours. Branch 250-50 mcg/dose inhalation disk fluticasone 2023-0 Yes [id number] 1{puff} Inhale 1 [facility] 3-27 Puff every it y of meteroL 00:00: 12 [place] (ADVAIR ) Medical DISKUS) hours. Branch 250-50 mcg/dose inhalation disk fluticasone 2023-0 Yes [id number] 1{puff} Inhale 1 [facility] 3-27 Puff every it y of meteroL 00:00: 12 [place] (ADVAIR ) Medical DISKUS) hours. Branch 250-50 mcg/dose inhalation disk fluticasone 2023-0 Yes [id number] 1{puff} Inhale 1 [facility] 3-27 Puff every it y of meteroL 00:00: 12 [place] (ADVAIR ) Medical DISKUS) hours. Branch 250-50 mcg/dose inhalation disk fluticasone 2023-0 Yes [id number] 1{puff} Inhale 1 [facility] 3-27 Puff every it y of meteroL 00:00: 12 [place] (ADVAIR ) Medical DISKUS) hours. Branch 250-50 mcg/dose inhalation disk fluticasone 2023-0 Yes [id number] 1{puff} Inhale 1 [facility] 3-27 Puff every it y of meteroL 00:00: 12 [place] (ADVAIR ) Medical DISKUS) hours. Branch 250-50 mcg/dose inhalation disk fluticasone 2023-0 Yes [id number] 1{puff} Inhale 1 [facility] 3-27 Puff every it y of meteroL 00:00: 12 [place] (ADVAIR ) Medical DISKUS) hours. Branch 250-50 mcg/dose inhalation disk fluticasone 2023-0 Yes [id number] 1{puff} Inhale 1 [facility] 3-27 Puff every it y of meteroL 00:00: 12 [place] (ADVAIR ) Medical DISKUS) hours. Branch 250-50 mcg/dose inhalation disk fluticasone 2023-0 Yes [id number] 1{puff} Inhale 1 [facility] 3-27 Puff every it y of meteroL 00:00: 12 [place] (ADVAIR ) Medical DISKUS) hours. Branch 250-50 mcg/dose inhalation disk fluticasone 2023-0 Yes [id number] 1{puff} Inhale 1 [facility] 3-27 Puff every it y of meteroL 00:00: 12 [place] (ADVAIR 00 (twelve) Medical DISKUS) hours. Branch 250-50 mcg/dose inhalation disk fluticasone 2023-0 Yes [id number] 1{puff} Inhale 1 [facility] 3-27 Puff every it y of meteroL 00:00: 12 [place] (ADVAIR 00 (twelve) Medical DISKUS) hours. Branch 250-50 mcg/dose inhalation disk fluticasone 2023-0 Yes [id number] 1{puff} Inhale 1 [facility] 3-27 Puff every it y of meteroL 00:00: 12 [place] (ADVAIR 00 (twelve) Medical DISKUS) hours. Branch 250-50 mcg/dose inhalation disk fluticasone 2023-0 Yes [id number] 1{puff} Inhale 1 [facility] 3-27 Puff every it y of meteroL 00:00: 12 [place] (ADVAIR 00 (twelve) Medical DISKUS) hours. Branch 250-50 mcg/dose inhalation disk fluticasone 2023-0 Yes [id number] 1{puff} Inhale 1 [facility] 3-27 Puff every it y of meteroL 00:00: 12 [place] (ADVAIR 00 (twelve) Medical DISKUS) hours. Branch 250-50 mcg/dose inhalation disk fluticasone 2023-0 Yes [id number] 1{puff} Inhale 1 [facility] 3-27 Puff every it y of meteroL 00:00: 12 [place] (ADVAIR 00 (twelve) Medical DISKUS) hours. Branch 250-50 mcg/dose inhalation disk fluticasone 2023-0 Yes [id number] 1{puff} Inhale 1 [facility] 3-27 Puff every it y of meteroL 00:00: 12 [place] (ADVAIR 00 (twelve) Medical DISKUS) hours. Branch 250-50 mcg/dose inhalation disk fluticasone 2023-0 Yes [id number] 1{puff} Inhale 1 [facility] 3-27 Puff every it y of meteroL 00:00: 12 [place] (ADVAIR 00 (twelve) Medical DISKUS) hours. Branch 250-50 mcg/dose inhalation disk fluticasone 2023-0 Yes [id number] 1{puff} Inhale 1 [facility] 3-27 Puff every it y of meteroL 00:00: 12 [place] (ADVAIR () Medical DISKUS) hours. Branch 250-50 mcg/dose inhalation disk fluticasone 2023-0 Yes [id number] 1{puff} Inhale 1 [facility] 3-27 Puff every it y of meteroL 00:00: 12 [place] (ADVAIR () Medical DISKUS) hours. Branch 250-50 mcg/dose inhalation disk fluticasone 3-0 Yes [id number] 1{puff} Inhale 1 [facility] 3-27 Puff every it y of meteroL 00:00: 12 [place] (ADVAIR () Medical DISKUS) hours. Branch 250-50 mcg/dose inhalation disk fluticasone 3-0 Yes [id number] 1{puff} Inhale 1 [facility] 3-27 Puff every it y of meteroL 00:00: 12 [place] (ADVAIR () Medical DISKUS) hours. Branch 250-50 mcg/dose inhalation disk fluticasone 3-0 Yes [id number] 1{puff} Inhale 1 [facility] 3-27 Puff every it y of meteroL 00:00: 12 [place] (ADVAIR () Medical DISKUS) hours. Branch 250-50 mcg/dose inhalation disk fluticasone 3-0 Yes [id number] 1{puff} Inhale 1 [facility] 3-27 Puff every it y of meteroL 00:00: 12 [place] (ADVAIR () Medical DISKUS) hours. Branch 250-50 mcg/dose inhalation disk fluticasone 3-0 Yes [id number] 1{puff} Inhale 1 [facility] 3-27 Puff every it y of meteroL 00:00: 12 [place] (ADVAIR () Medical DISKUS) hours. Branch 250-50 mcg/dose inhalation disk fluticasone 2023-0 Yes [id number] 1{puff} Inhale 1 [facility] 3-27 Puff every it y of meteroL 00:00: 12 [place] (ADVAIR () Medical DISKUS) hours. Branch 250-50 mcg/dose inhalation disk fluticasone 3-0 Yes [id number] 1{puff} Inhale 1 [facility] 3-27 Puff every it y of meteroL 00:00: 12 [place] (ADVAIR ) Medical DISKUS) hours. Branch 250-50 mcg/dose inhalation disk fluticasone 2023-0 Yes [id number] 1{puff} Inhale 1 [facility] 3-27 Puff every it y of meteroL 00:00: 12 [place] (ADVAIR ) Medical DISKUS) hours. Branch 250-50 mcg/dose inhalation disk fluticasone 2023-0 Yes [id number] 1{puff} Inhale 1 [facility] 3-27 Puff every it y of meteroL 00:00: 12 [place] (ADVAIR ) Medical DISKUS) hours. Branch 250-50 mcg/dose inhalation disk fluticasone 2023-0 Yes [id number] 1{puff} Inhale 1 [facility] 3-27 Puff every it y of meteroL 00:00: 12 [place] (ADVAIR ) Medical DISKUS) hours. Branch 250-50 mcg/dose inhalation disk fluticasone 3-0 Yes [id number] 1{puff} Inhale 1 [facility] 3-27 Puff every it y of meteroL 00:00: 12 [place] (ADVAIR ) Medical DISKUS) hours. Branch 250-50 mcg/dose inhalation disk fluticasone 2023-0 2023- No [id number] 1{puff} Inhale 1 [facility] 3-27 09-27 Puff every i ty of meteroL 00:00: 00:00 12 [place] (ADVAIR 00 () Medical DISKUS) hours. Branch 250-50 mcg/dose inhalation disk cycloSPORIN 3-[id number] 1 [facility] E 3-20 DROP IN ity of (RESTASIS) 00:00: BOTH EYES [place] 0.05 % 00 EVERY 12 Medical drops HOURS Branch cycloSPORIN 3-[id number] 1 [facility] E 3-20 DROP IN ity of (RESTASIS) 00:00: BOTH EYES [place] 0.05 % 00 EVERY 12 Medical drops HOURS Branch cycloSPORIN 3-[id number] 1 [facility] E 3-20 DROP IN ity of (RESTASIS) 00:00: BOTH EYES [place] 0.05 % 00 EVERY 12 Medical drops HOURS Branch cycloSPORIN 2023-[id number] 1 [facility] E 3-20 DROP IN ity of (RESTASIS) 00:00: BOTH EYES [place] 0.05 % 00 EVERY 12 Medical drops HOURS Branch cycloSPORIN 2023-[id number] 1 [facility] E 3-20 DROP IN ity of (RESTASIS) 00:00: BOTH [place]YES [place] 0.05 % 00 EVERY 12 Medical drops HOURS Branch cycloSPORIN 2023-[id number] 1 [facility] E 3-20 DROP IN ity of (RESTASIS) 00:00: BOTH EYES [place] 0.05 % 00 EVERY 12 Medical drops HOURS Branch cycloSPORIN 2023-[id number] 1 [facility] E 3-20 DROP IN ity of (RESTASIS) 00:00: BOTH [place]YES [place] 0.05 % 00 EVERY 12 Medical drops HOURS Branch cycloSPORIN 2023-[id number] 1 [facility] E 3-20 DROP IN ity of (RESTASIS) 00:00: BOTH EYES [place] 0.05 % 00 EVERY 12 Medical drops HOURS Branch cycloSPORIN 2023-[id number] 1 [facility] E 3-20 DROP IN ity of (RESTASIS) 00:00: BOTH EYES [place] 0.05 % 00 EVERY 12 Medical drops HOURS Branch cycloSPORIN 2023-[id number] 1 [facility] E 3-20 DROP IN ity of (RESTASIS) 00:00: BOTH EYES [place] 0.05 % 00 EVERY 12 Medical drops HOURS Branch cycloSPORIN 2023-[id number] 1 [facility] E 3-20 DROP IN ity of (RESTASIS) 00:00: BOTH [place]YES [place] 0.05 % 00 EVERY 12 Medical drops HOURS Branch cycloSPORIN 2023-[id number] 1 [facility] E 3-20 DROP IN ity of (RESTASIS) 00:00: BOTH [place]YES [place] 0.05 % 00 EVERY 12 Medical drops HOURS Branch cycloSPORIN 2023-[id number] 1 [facility] E 3-20 DROP IN ity of (RESTASIS) 00:00: BOTH [place]YES [place] 0.05 % 00 EVERY 12 Medical drops HOURS Branch cycloSPORIN 2023-[id number] 1 [facility] E 3-20 DROP IN ity of (RESTASIS) 00:00: BOTH EYES [place] 0.05 % 00 EVERY 12 Medical drops HOURS Branch cycloSPORIN 2023-[id number] 1 [facility] E 3-20 DROP IN ity of (RESTASIS) 00:00: BOTH EYES [place] 0.05 % 00 EVERY 12 Medical drops HOURS Branch cycloSPORIN 2023-[id number] 1 [facility] E 3-20 DROP IN ity of (RESTASIS) 00:00: BOTH EYES [place] 0.05 % 00 EVERY 12 Medical drops HOURS Branch cycloSPORIN 2023-[id number] 1 [facility] E 3-20 DROP IN ity of (RESTASIS) 00:00: BOTH EYES [place] 0.05 % 00 EVERY 12 Medical drops HOURS Branch cycloSPORIN 2023-[id number] 1 [facility] E 3-20 DROP IN ity of (RESTASIS) 00:00: BOTH EYES [place] 0.05 % 00 EVERY 12 Medical drops HOURS Branch cycloSPORIN 2023-[id number] 1 [facility] E 3-20 DROP IN ity of (RESTASIS) 00:00: BOTH EYES [place] 0.05 % 00 EVERY 12 Medical drops HOURS Branch cycloSPORIN 2023-[id number] 1 [facility] E 3-20 DROP IN ity of (RESTASIS) 00:00: BOTH EYES [place] 0.05 % 00 EVERY 12 Medical drops HOURS Branch cycloSPORIN 2023-[id number] 1 [facility] E 3-20 DROP IN ity of (RESTASIS) 00:00: BOTH EYES [place] 0.05 % 00 EVERY 12 Medical drops HOURS Branch cycloSPORIN 2023-[id number] 1 [facility] E 3-20 DROP IN ity of (RESTASIS) 00:00: BOTH EYES [place] 0.05 % 00 EVERY 12 Medical drops HOURS Branch cycloSPORIN 2023-[id number] 1 [facility] E 3-20 DROP IN ity of (RESTASIS) 00:00: BOTH EYES [place] 0.05 % 00 EVERY 12 Medical drops HOURS Branch cycloSPORIN 2023-[id number] 1 [facility] E 3-20 DROP IN ity of (RESTASIS) 00:00: BOTH EYES [place] 0.05 % 00 EVERY 12 Medical drops HOURS Branch cycloSPORIN 2023-[id number] 1 [facility] E 3-20 DROP IN ity of (RESTASIS) 00:00: BOTH EYES [place] 0.05 % 00 EVERY 12 Medical drops HOURS Branch cycloSPORIN 2023-[id number] 1 [facility] E 3-20 DROP IN ity of (RESTASIS) 00:00: BOTH EYES [place] 0.05 % 00 EVERY 12 Medical drops HOURS Branch cycloSPORIN 2023-[id number] 1 [facility] E 3-20 DROP IN ity of (RESTASIS) 00:00: BOTH EYES [place] 0.05 % 00 EVERY 12 Medical drops HOURS Branch cycloSPORIN 2023-[id number] 1 [facility] E 3-20 DROP IN ity of (RESTASIS) 00:00: BOTH EYES [place] 0.05 % 00 EVERY 12 Medical drops HOURS Branch cycloSPORIN 2023-[id number] 1 [facility] E 3-20 DROP IN ity of (RESTASIS) 00:00: BOTH EYES [place] 0.05 % 00 EVERY 12 Medical drops HOURS Branch cycloSPORIN 2023-[id number] 1 [facility] E 3-20 DROP IN ity of (RESTASIS) 00:00: BOTH EYES [place] 0.05 % 00 EVERY 12 Medical drops HOURS Branch cycloSPORIN 2023-[id number] 1 [facility] E 3-20 DROP IN ity of (RESTASIS) 00:00: BOTH EYES [place] 0.05 % 00 EVERY 12 Medical drops HOURS Branch cycloSPORIN 2023-[id number] 1 [facility] E 3-20 DROP IN ity of (RESTASIS) 00:00: BOTH EYES [place] 0.05 % 00 EVERY 12 Medical drops HOURS Branch cycloSPORIN 2023-[id number] 1 [facility] E 3-20 DROP IN ity of (RESTASIS) 00:00: BOTH EYES [place] 0.05 % 00 EVERY 12 Medical drops HOURS Branch cycloSPORIN 2023-[id number] 1 [facility] E 3-20 DROP IN ity of (RESTASIS) 00:00: BOTH EYES [place] 0.05 % 00 EVERY 12 Medical drops HOURS Branch cycloSPORIN 2023-[id number] 1 [facility] E 3-20 DROP IN ity of (RESTASIS) 00:00: BOTH EYES [place] 0.05 % 00 EVERY 12 Medical drops HOURS Branch cycloSPORIN 2023-[id number] 1 [facility] E 3-20 DROP IN ity of (RESTASIS) 00:00: BOTH EYES [place] 0.05 % 00 EVERY 12 Medical drops HOURS Branch cycloSPORIN 2023-[id number] 1 [facility] E 3-20 DROP IN ity of (RESTASIS) 00:00: BOTH EYES [place] 0.05 % 00 EVERY 12 Medical drops HOURS Branch cycloSPORIN 2023-[id number] 1 [facility] E 3-20 DROP IN ity of (RESTASIS) 00:00: BOTH EYES [place] 0.05 % 00 EVERY 12 Medical drops HOURS Branch cycloSPORIN 2023-[id number] 1 [facility] E 3-20 DROP IN ity of (RESTASIS) 00:00: BOTH EYES [place] 0.05 % 00 EVERY 12 Medical drops HOURS Branch cycloSPORIN 2023-[id number] 1 [facility] E 3-20 DROP IN ity of (RESTASIS) 00:00: BOTH EYES [place] 0.05 % 00 EVERY 12 Medical drops HOURS Branch cycloSPORIN 2023-[id number] 1 [facility] E 3-20 DROP IN ity of (RESTASIS) 00:00: BOTH EYES [place] 0.05 % 00 EVERY 12 Medical drops HOURS Branch cycloSPORIN 2023-[id number] 1 [facility] E 3-20 DROP IN ity of (RESTASIS) 00:00: BOTH EYES [place] 0.05 % 00 EVERY 12 Medical drops HOURS Branch cycloSPORIN 2023-[id number] 1 [facility] E 3-20 DROP IN ity of (RESTASIS) 00:00: BOTH EYES [place] 0.05 % 00 EVERY 12 Medical drops HOURS Branch cycloSPORIN 2023-[id number] 1 [facility] E 3-20 DROP IN ity of (RESTASIS) 00:00: BOTH EYES [place] 0.05 % 00 EVERY 12 Medical drops HOURS Branch cycloSPORIN 2023-[id number] 1 [facility] E 3-20 DROP IN ity of (RESTASIS) 00:00: BOTH EYES [place] 0.05 % 00 EVERY 12 Medical drops HOURS Branch cycloSPORIN 2023-[id number] 1 [facility] E 3-20 DROP IN ity of (RESTASIS) 00:00: BOTH EYES [place] 0.05 % 00 EVERY 12 Medical drops HOURS Branch cycloSPORIN 2023-[id number] 1 [facility] E 3-20 DROP IN ity of (RESTASIS) 00:00: BOTH EYES [place] 0.05 % 00 EVERY 12 Medical drops HOURS Branch cycloSPORIN 2023-[id number] 1 [facility] E 3-20 DROP IN ity of (RESTASIS) 00:00: BOTH EYES [place] 0.05 % 00 EVERY 12 Medical drops HOURS Branch cycloSPORIN 2023-[id number] 1 [facility] E 3-20 DROP IN ity of (RESTASIS) 00:00: BOTH EYES [place] 0.05 % 00 EVERY 12 Medical drops HOURS Branch cycloSPORIN 2023-[id number] 1 [facility] E 3-20 DROP IN ity of (RESTASIS) 00:00: BOTH EYES [place] 0.05 % 00 EVERY 12 Medical drops HOURS Branch cycloSPORIN 2023-[id number] 1 [facility] E 3-20 DROP IN ity of (RESTASIS) 00:00: BOTH EYES [place] 0.05 % 00 EVERY 12 Medical drops HOURS Branch cycloSPORIN 2023-[id number] 1 [facility] E 3-20 DROP IN ity of (RESTASIS) 00:00: BOTH EYES [place] 0.05 % 00 EVERY 12 Medical drops HOURS Branch cycloSPORIN 2023-[id number] 1 [facility] E 3-20 DROP IN ity of (RESTASIS) 00:00: BOTH EYES [place] 0.05 % 00 EVERY 12 Medical drops HOURS Branch cycloSPORIN 2023-0 2023- No [id number] PLACE 1 [facility] E 3-20 07-20 DROP IN ity of (RESTASIS) 00:00: 00:00 BOTH EYES [place] 0.05 % 00 :00 EVERY 12 Medical drops HOURS Branch cycloSPORIN 2023-0 2023- No [id number] PLACE 1 [facility] E 3-20 07-20 DROP IN ity of (RESTASIS) 00:00: 00:00 BOTH EYES [place] 0.05 % 00 :00 EVERY 12 Medical drops HOURS Branch cycloSPORIN 2023-0 2023- No [id number] PLACE 1 [facility] E 3-20 07-20 DROP IN ity of (RESTASIS) 00:00: 00:00 BOTH EYES [place] 0.05 % 00 :00 EVERY 12 Medical drops HOURS Branch cycloSPORIN 2022-0 2023- No [id number] PLACE 1 [facility] E 3-20 07-20 DROP IN ity of (RESTASIS) 00:00: 00:00 BOTH EYES [place] 0.05 % 00 :00 EVERY 12 Medical drops HOURS Branch FAMOTIDINE 2022-0 Yes [id number] TAKE 1 [facility] 20 mg 3-10 TABLET BY ity of tablet 00:00: MOUTH [place] TWICE Medical DAILY Branch FAMOTIDINE 2022-0 Yes [id number] TAKE 1 [facility] 20 mg 3-10 TABLET BY ity of tablet 00:00: MOUTH TWICE Medical DAILY Branch FAMOTIDINE 2022-0 Yes [id number] TAKE 1 [facility] 20 mg 3-10 TABLET BY ity of tablet 00:00: TWICE Medical DAILY Branch FAMOTIDINE 2022-0 Yes [id number] TAKE 1 [facility] 20 mg 3-10 TABLET BY ity of tablet 00:00: [facility] TWICE Medical DAILY Branch FAMOTIDINE 2022-0 Yes [id number] TAKE 1 [facility] 20 mg 3-10 TABLET BY ity of tablet 00:00: MOUTH TWICE Medical DAILY Branch FAMOTIDINE 2022-0 Yes [id number] TAKE 1 [facility] 20 mg 3-10 TABLET BY ity of tablet 00:00: [facility] TWICE Medical DAILY Branch FAMOTIDINE 2022-0 Yes [id number] TAKE 1 [facility] 20 mg 3-10 TABLET BY ity of tablet 00:00: [facility] TWICE Medical DAILY Branch FAMOTIDINE 3-0 Yes [id number] TAKE 1 [facility] 20 mg 3-10 TABLET BY ity of tablet 00:00: [facility] TWICE Medical DAILY Branch FAMOTIDINE 3-0 Yes [id number] TAKE 1 [facility] 20 mg 3-10 TABLET BY ity of tablet 00:00: [facility] TWICE Medical DAILY Branch FAMOTIDINE 3-0 Yes [id number] TAKE 1 [facility] 20 mg 3-10 TABLET BY ity of tablet 00:00: [facility] TWICE Medical DAILY Branch FAMOTIDINE 3-0 Yes [id number] TAKE 1 [facility] 20 mg 3-10 TABLET BY ity of tablet 00:00: [facility] TWICE Medical DAILY Branch FAMOTIDINE 3-0 Yes [id number] TAKE 1 [facility] 20 mg 3-10 TABLET BY ity of tablet 00:00: MOUTH [place] TWICE Medical DAILY Branch FAMOTIDINE 2023-0 Yes [id number] TAKE 1 [facility] 20 mg 3-10 TABLET BY ity of tablet 00:00: TWICE Medical DAILY Branch FAMOTIDINE 2023-0 Yes [id number] TAKE 1 [facility] 20 mg 3-10 TABLET BY ity of tablet 00:00: TWICE Medical DAILY Branch FAMOTIDINE 2023-0 Yes [id number] TAKE 1 [facility] 20 mg 3-10 TABLET BY [facility] tablet 00:00: [facility] FAMOTIDINE 2023-0 Yes [id number] TAKE 1 [facility] 20 mg 3-10 TABLET BY [facility] tablet 00:00: [facility] FAMOTIDINE 2023-0 Yes [id number] TAKE 1 [facility] 20 mg 3-10 TABLET BY [facility] tablet 00:00: [facility] TWICE [facility] DAILY [facility] FAMOTIDINE 2023-0 Yes [id number] TAKE 1 [facility] 20 mg 3-10 TABLET BY [facility] tablet 00:00: [facility] TW[facility] FAMOTIDINE 2023-0 Yes [id number] TAKE 1 [facility] 20 mg 3-10 TABLET BY [facility] tablet 00:00: [facility] TW[facility] FAMOTIDINE 2023-0 Yes [id number] TAKE 1 [facility] 20 mg 3-10 TABLET BY [facility] tablet 00:00: [facility] TW[facility] FAMOTIDINE 2023-0 Yes [id number] TAKE 1 [facility] 20 mg 3-10 TABLET BY [facility] tablet 00:00: [facility] TW[facility] FAMOTIDINE 2023-0 Yes [id number] TAKE 1 [facility] 20 mg 3-10 TABLET BY [facility] tablet 00:00: [facility] TW[facility] FAMOTIDINE 2023-0 Yes [id number] TAKE 1 [facility] 20 mg 3-10 TABLET BY [facility] tablet 00:00: [facility] TW[facility] FAMOTIDINE 2023-0 Yes [id number] TAKE 1 [facility] 20 mg 3-10 TABLET BY [facility] tablet 00:00: [facility] TW[facility] FAMOTIDINE 2023-0 Yes [id number] TAKE 1 [facility] 20 mg 3-10 TABLET BY [facility] tablet 00:00: [facility] TW[facility] FAMOTIDINE 2023-0 Yes [id number] TAKE 1 [facility]-10 TABLET BY [facility] tablet 00:00: [facility]OUTH TWICE [facility] FAMOTIDINE 2023-0 Yes [id number] TAKE 1 [facility] 20 [facility] 3-10 TABLET BY [facility] tablet 00:00: MOUTH TWICE [facility] DA[facility] FAMOTIDINE 2023-0 Yes [id number] TAKE 1 [facility] 20 [facility] 3-10 TABLET BY [facility] tablet 00:00: TWICE [facility] FAMOTIDINE 2023-0 Yes [id number] TAKE 1 [facility] 20 mg 3-10 TABLET BY [facility] tablet 00:00: MOUTH TWICE [facility] DA[facility] FAMOTIDINE 2023-0 Yes [id number] TAKE 1 [facility] 20 mg 3-10 TABLET BY [facility] tablet 00:00: TWICE [facility] FAMOTIDINE 2023-0 Yes [id number] TAKE 1 [facility] 20 mg 3-10 TABLET BY [facility] tablet 00:00: [facility] TWICE [facility] DAILY [facility] FAMOTIDINE 2023-0 Yes [id number] TAKE 1 [facility] 20 mg 3-10 TABLET BY [facility] tablet 00:00: TWICE [facility] DAILY [facility] FAMOTIDINE 2023-0 Yes [id number] TAKE 1 [facility] 20 mg 3-10 TABLET BY [facility] tablet 00:00: [facility] TWICE [facility] DAILY [facility] FAMOTIDINE 2023-0 Yes [id number] TAKE 1 [facility] 20 mg 3-10 TABLET BY [facility] tablet 00:00: [facility] TWICE [facility] DAILY [facility] FAMOTIDINE 2023-0 Yes [id number] TAKE 1 [facility] 20 mg 3-10 TABLET BY [facility] tablet 00:00: [facility] TWICE [facility] DAILY [facility] FAMOTIDINE 2023-0 Yes [id number] TAKE 1 [facility] 20 mg 3-10 TABLET BY [facility] tablet 00:00: [facility] TWICE [facility] DAILY [facility] FAMOTIDINE 2023-0 Yes [id number] TAKE 1 [facility] 20 mg 3-10 TABLET BY [facility] tablet 00:00: [facility] TWICE [facility] DAILY [facility] FAMOTIDINE 2023-0 Yes [id number] TAKE 1 [facility] 20 mg 3-10 TABLET BY [facility] tablet 00:00: [facility] TWICE [facility] DAILY [facility] FAMOTIDINE 2023-0 Yes [id number] TAKE 1 [facility] 20 mg 3-10 TABLET BY [facility] tablet 00:00: TWICE [facility] DAILY [facility] FAMOTIDINE 2023-0 Yes [id number] TAKE 1 [facility] 20 mg 3-10 TABLET BY [facility] tablet 00:00: TWICE [facility] DA[facility] FAMOTIDINE 2023-0 Yes [id number] TAKE 1 [facility] 20 mg 3-10 TABLET BY [facility] tablet 00:00: TWICE [facility] DAILY [facility] FAMOTIDINE 2023-0 Yes [id number] TAKE 1 [facility] 20 mg 3-10 TABLET BY [facility] tablet 00:00: TWICE [facility] FAMOTIDINE 2023-0 Yes [id number] TAKE 1 [facility] 20 mg 3-10 TABLET BY [facility] tablet 00:00: TWICE [facility] FAMOTIDINE 2023-0 Yes [id number] TAKE 1 [facility] 20 mg 3-10 TABLET BY [facility] tablet 00:00: [facility] TWICE [facility] DAILY [facility] FAMOTIDINE 2023-0 Yes [id number] TAKE 1 [facility] 20 mg 3-10 TABLET BY [facility] tablet 00:00: TWICE [facility] FAMOTIDINE 2023-0 Yes [id number] TAKE 1 [facility] 20 mg 3-10 TABLET BY [facility] tablet 00:00: TWICE [facility] FAMOTIDINE 2023-0 Yes [id number] TAKE 1 [facility] 20 mg 3-10 TABLET BY [facility] tablet 00:00: [facility] TWICE [facility] DAILY [facility] FAMOTIDINE 2023-0 Yes [id number] TAKE 1 [facility] 20 mg 3-10 TABLET BY [facility] tablet 00:00: [facility] TWICE [facility] DAILY [facility] FAMOTIDINE 2023-0 Yes [id number] TAKE 1 [facility] 20 mg 3-10 TABLET BY [facility] tablet 00:00: [facility] TWICE [facility] DAILY [facility] FAMOTIDINE 2023-0 Yes [id number] TAKE 1 [facility] 20 mg 3-10 TABLET BY [facility] of tablet 00:00: [facility] TWICE [facility] DAILY [facility] FAMOTIDINE 2023-0 Yes [id number] TAKE 1 [facility] 20 mg 3-10 TABLET BY [facility] tablet 00:00: [facility] TWICE [facility] DAILY [facility] FAMOTIDINE 2023-0 Yes [id number] TAKE 1 [facility] 20 mg 3-10 TABLET BY [facility] tablet 00:00: [facility] TWICE [facility] DAILY [facility] FAMOTIDINE 2023-0 Yes [id number] TAKE 1 [facility] 20 mg 3-10 TABLET BY [facility] tablet 00:00: MOUTH TWICE [facility] DAILY [facility] FAMOTIDINE 2023-0 Yes [id number] TAKE 1 [facility] 20 mg 3-10 TABLET BY [facility] tablet 00:00: TWICE [facility] FAMOTIDINE 2023-0 Yes [id number] TAKE 1 [facility] 20 mg 3-10 TABLET BY [facility] tablet 00:00: TWICE [facility] FAMOTIDINE 2023-0 Yes [id number] TAKE 1 [facility] 20 mg 3-10 TABLET BY [facility] tablet 00:00: TWICE [facility] FAMOTIDINE 2023-0 Yes [id number] TAKE 1 [facility] 20 mg 3-10 TABLET BY [facility] tablet 00:00: TWICE [facility] FAMOTIDINE 2023-0 Yes [id number] TAKE 1 [facility] 20 mg 3-10 TABLET BY [facility] tablet 00:00: [facility] TWICE [facility] DAILY [facility] FAMOTIDINE 2023-0 Yes [id number] TAKE 1 [facility] 20 mg 3-10 TABLET BY [facility] tablet 00:00: TWICE [facility] DAILY [facility] FAMOTIDINE 2023-0 Yes [id number] TAKE 1 [facility] 20 mg 3-10 TABLET BY [facility] tablet 00:00: [facility] TWICE [facility] DAILY [facility] FAMOTIDINE 2023-0 Yes [id number] TAKE 1 [facility] 20 mg 3-10 TABLET BY [facility] tablet 00:00: [facility] TWICE [facility] DAILY [facility] FAMOTIDINE 2023-0 Yes [id number] TAKE 1 [facility] 20 mg 3-10 TABLET BY [facility] tablet 00:00: [facility] TWICE [facility] DAILY [facility] FAMOTIDINE 2023-0 Yes [id number] TAKE 1 [facility] 20 mg 3-10 TABLET BY [facility] tablet 00:00: [facility] TWICE [facility] DAILY [facility] FAMOTIDINE 2023-0 Yes [id number] TAKE 1 [facility] 20 mg 3-10 TABLET BY [facility] tablet 00:00: [facility] TWICE [facility] DAILY [facility] FAMOTIDINE 2023-0 Yes [id number] TAKE 1 [facility] 20 mg 3-10 TABLET BY [facility] tablet 00:00: [facility] TWICE [facility] DAILY [facility] FAMOTIDINE 2023-0 Yes [id number] TAKE 1 [facility] 20 mg 3-10 TABLET BY [facility] tablet 00:00: [facility] TWICE [facility] DAILY [facility] FAMOTIDINE 2022- No [id number] TAKE 1 [facility] 20 mg 3-10 - TABLET BY [facility] of tablet 00:00: 00:00 MOUTH [place] 00 :00 TWICE [facility] DAILY [facility] albuterol Yes [id number] 2{puff} Inhale 2 [facility] 90 3-07 Puffs [facility] of mcg/actuati 00:00: every 6 [facility] as on inhaler 00 (six) Medical hours as Branch needed for Wheezing or Shortness of Breath. albuterol Yes [id number] 2{puff} Inhale 2 [facility] 90 3-07 Puffs [facility] of mcg/actuati 00:00: every 6 [facility] on inhaler 00 (six) Medical hours as Branch needed for Wheezing or Shortness of Breath. albuterol Yes [id number] 2{puff} Inhale 2 [facility] 90 3-07 Puffs [facility] of mcg/actuati 00:00: every 6 [facility] on inhaler 00 (six) Medical hours as Branch needed for Wheezing or Shortness of Breath. albuterol Yes [id number] 2{puff} Inhale 2 [facility] 90 3-07 Puffs [facility] of mcg/actuati 00:00: every 6 [facility] on inhaler 00 (six) Medical hours as Branch needed for Wheezing or Shortness of Breath. albuterol Yes [id number] 2{puff} Inhale 2 [facility] 90 3-07 Puffs [facility] of mcg/actuati 00:00: every 6 [facility] on inhaler 00 (six) Medical hours as Branch needed for Wheezing or Shortness of Breath. albuterol Yes [id number] 2{puff} Inhale 2 [facility] 90 3-07 Puffs [facility] of mcg/actuati 00:00: every 6 [facility] on inhaler 00 (six) Medical hours as Branch needed for Wheezing or Shortness of Breath. albuterol Yes [id number] 2{puff} Inhale 2 [facility] 90 3-07 Puffs [facility] of mcg/actuati 00:00: every 6 [facility] on inhaler 00 (six) Medical hours as Branch needed for Wheezing or Shortness of Breath. albuterol Yes [id number] 2{puff} Inhale 2 [facility] 90 3-07 Puffs [facility] of mcg/actuati 00:00: every 6 [facility] on inhaler 00 (six) Medical hours as Branch needed for Wheezing or Shortness of Breath. albuterol Yes [id number] 2{puff} Inhale 2 [facility] 90 3-07 Puffs [facility] of mcg/actuati 00:00: every 6 [facility] on inhaler 00 (six) Medical hours as Branch needed for Wheezing or Shortness of Breath. albuterol Yes [id number] 2{puff} Inhale 2 [facility] 90 3-07 Puffs [facility] of mcg/actuati 00:00: every 6 [facility] on inhaler 00 (six) Medical hours as Branch needed for Wheezing or Shortness of Breath. albuterol Yes [id number] 2{puff} Inhale 2 [facility] 90 3-07 Puffs [facility] of mcg/actuati 00:00: every 6 [facility] on inhaler 00 (six) Medical hours as Branch needed for Wheezing or Shortness of Breath. albuterol Yes [id number] 2{puff} Inhale 2 [facility] 90 3-07 Puffs [facility] of mcg/actuati 00:00: every 6 [facility] on inhaler 00 (six) Medical hours as Branch needed for Wheezing or Shortness of Breath. albuterol Yes [id number] 2{puff} Inhale 2 [facility] 90 3-07 Puffs [facility] of mcg/actuati 00:00: every 6 [facility] on inhaler 00 (six) Medical hours as Branch needed for Wheezing or Shortness of Breath. albuterol Yes [id number] 2{puff} Inhale 2 [facility] 90 3-07 Puffs [facility] of mcg/actuati 00:00: every 6 [facility] on inhaler 00 (six) Medical hours as Branch needed for Wheezing or Shortness of Breath. albuterol Yes [id number] 2{puff} Inhale 2 [facility] 90 3-07 Puffs [facility] of mcg/actuati 00:00: every 6 [facility] on inhaler 00 (six) Medical hours as Branch needed for Wheezing or Shortness of Breath. albuterol Yes [id number] 2{puff} Inhale 2 [facility] 90 3-07 Puffs [facility] of mcg/actuati 00:00: every 6 [facility] on inhaler 00 (six) Medical hours as Branch needed for Wheezing or Shortness of Breath. albuterol Yes [id number] 2{puff} Inhale 2 [facility] 90 3-07 Puffs [facility] of mcg/actuati 00:00: every 6 [facility] on inhaler 00 (six) Medical hours as Branch needed for Wheezing or Shortness of Breath. albuterol Yes [id number] 2{puff} Inhale 2 [facility] 90 3-07 Puffs [facility] of mcg/actuati 00:00: every 6 [facility] on inhaler 00 (six) Medical hours as Branch needed for Wheezing or Shortness of Breath. albuterol Yes [id number] 2{puff} Inhale 2 [facility] 90 3-07 Puffs [facility] of mcg/actuati 00:00: every 6 [facility] as on inhaler 00 (six) Medical hours as Branch needed for Wheezing or Shortness of Breath. albuterol Yes [id number] 2{puff} Inhale 2 [facility] 90 3-07 Puffs [facility] of mcg/actuati 00:00: every 6 [facility] on inhaler 00 (six) Medical hours as Branch needed for Wheezing or Shortness of Breath. albuterol Yes [id number] 2{puff} Inhale 2 [facility] 90 3-07 Puffs [facility] of mcg/actuati 00:00: every 6 [facility] on inhaler 00 (six) Medical hours as Branch needed for Wheezing or Shortness of Breath. albuterol Yes [id number] 2{puff} Inhale 2 [facility] 90 3-07 Puffs [facility] of mcg/actuati 00:00: every 6 [facility] on inhaler 00 (six) Medical hours as Branch needed for Wheezing or Shortness of Breath. albuterol Yes [id number] 2{puff} Inhale 2 [facility] 90 3-07 Puffs [facility] of mcg/actuati 00:00: every 6 [facility] on inhaler 00 (six) Medical hours as Branch needed for Wheezing or Shortness of Breath. albuterol Yes [id number] 2{puff} Inhale 2 [facility] 90 3-07 Puffs [facility] of mcg/actuati 00:00: every 6 [facility] on inhaler 00 (six) Medical hours as Branch needed for Wheezing or Shortness of Breath. albuterol Yes [id number] 2{puff} Inhale 2 [facility] 90 3-07 Puffs [facility] of mcg/actuati 00:00: every 6 [facility] on inhaler 00 (six) Medical hours as Branch needed for Wheezing or Shortness of Breath. albuterol Yes [id number] 2{puff} Inhale 2 [facility] 90 3-07 Puffs [facility] of mcg/actuati 00:00: every 6 [facility] on inhaler 00 (six) Medical hours as Branch needed for Wheezing or Shortness of Breath. albuterol Yes [id number] 2{puff} Inhale 2 [facility] 90 3-07 Puffs [facility] of mcg/actuati 00:00: every 6 [facility] as on inhaler 00 (six) Medical hours as Branch needed for Wheezing or Shortness of Breath. albuterol Yes [id number] 2{puff} Inhale 2 [facility] 90 3-07 Puffs [facility] of mcg/actuati 00:00: every 6 [facility] on inhaler 00 (six) Medical hours as Branch needed for Wheezing or Shortness of Breath. albuterol Yes [id number] 2{puff} Inhale 2 [facility] 90 3-07 Puffs [facility] of mcg/actuati 00:00: every 6 [facility] as on inhaler 00 (six) Medical hours as Branch needed for Wheezing or Shortness of Breath. albuterol Yes [id number] 2{puff} Inhale 2 [facility] 90 3-07 Puffs [facility]y of mcg/actuati 00:00: every 6 [facility] on inhaler 00 (six) Medical hours as Branch needed for Wheezing or Shortness of Breath. albuterol Yes [id number] 2{puff} Inhale 2 [facility] 90 3-07 Puffs [facility] of mcg/actuati 00:00: every 6 [facility] on inhaler 00 (six) Medical hours as Branch needed for Wheezing or Shortness of Breath. albuterol Yes [id number] 2{puff} Inhale 2 [facility] 90 3-07 Puffs [facility] of mcg/actuati 00:00: every 6 [facility] on inhaler 00 (six) Medical hours as Branch needed for Wheezing or Shortness of Breath. albuterol Yes [id number] 2{puff} Inhale 2 [facility] 90 3-07 Puffs [facility] of mcg/actuati 00:00: every 6 [facility] on inhaler 00 (six) Medical hours as Branch needed for Wheezing or Shortness of Breath. albuterol Yes [id number] 2{puff} Inhale 2 [facility] 90 3-07 Puffs [facility] of mcg/actuati 00:00: every 6 [facility] on inhaler 00 (six) Medical hours as Branch needed for Wheezing or Shortness of Breath. albuterol Yes [id number] 2{puff} Inhale 2 [facility] 90 3-07 Puffs [facility] of mcg/actuati 00:00: every 6 [facility] on inhaler 00 (six) Medical hours as Branch needed for Wheezing or Shortness of Breath. albuterol Yes [id number] 2{puff} Inhale 2 [facility] 90 3-07 Puffs [facility] of mcg/actuati 00:00: every 6 [place] as on inhaler 00 (six) Medical hours as Branch needed for Wheezing or Shortness of Breath. albuterol Yes [id number] 2{puff} Inhale 2 [facility] 90 3-07 Puffs [facility]y of mcg/actuati 00:00: every 6 [place] [facility] on inhaler 00 (six) Medical hours as Branch needed for Wheezing or Shortness of Breath. albuterol Yes [id number] 2{puff} Inhale 2 [facility] 90 3-07 Puffs [facility]y of mcg/actuati 00:00: every 6 [place] [facility] on inhaler 00 (six) Medical hours as Branch needed for Wheezing or Shortness of Breath. albuterol Yes [id number] 2{puff} Inhale 2 [facility] 90 3-07 Puffs [facility]y of mcg/actuati 00:00: every 6 [place] [facility] on inhaler 00 (six) Medical hours as Branch needed for Wheezing or Shortness of Breath. albuterol Yes [id number] 2{puff} Inhale 2 [facility] 90 3-07 Puffs [facility]y of mcg/actuati 00:00: every 6 [place] as on inhaler 00 (six) Medical hours as Branch needed for Wheezing or Shortness of Breath. albuterol Yes [id number] 2{puff} Inhale 2 [facility] 90 3-07 Puffs [facility]y of mcg/actuati 00:00: every 6 [place] [facility] on inhaler 00 (six) Medical hours as Branch needed for Wheezing or Shortness of Breath. albuterol Yes [id number] 2{puff} Inhale 2 [facility] 90 3-07 Puffs [facility]y of mcg/actuati 00:00: every 6 [facility] as on inhaler 00 (six) Medical hours as Branch needed for Wheezing or Shortness of Breath. albuterol Yes [id number] 2{puff} Inhale 2 [facility] 90 3-07 Puffs [facility]y of mcg/actuati 00:00: every 6 [place] as on inhaler 00 (six) Medical hours as Branch needed for Wheezing or Shortness of Breath. albuterol Yes [id number] 2{puff} Inhale 2 [facility] 90 3-07 Puffs ity of mcg/actuati 00:00: every 6 [place] as on inhaler 00 (six) Medical hours as Branch needed for Wheezing or Shortness of Breath. albuterol Yes [id number] 2{puff} Inhale 2 [facility] 90 3-07 Puffs ity of mcg/actuati 00:00: every 6 [place] as on inhaler 00 (six) Medical hours as Branch needed for Wheezing or Shortness of Breath. albuterol Yes [id number] 2{puff} Inhale 2 [facility] 90 3-07 Puffs ity of mcg/actuati 00:00: every 6 [place] as on inhaler 00 (six) Medical hours as Branch needed for Wheezing or Shortness of Breath. albuterol Yes [id number] 2{puff} Inhale 2 [facility] 90 3-07 Puffs ity of mcg/actuati 00:00: every 6 [place] as on inhaler 00 (six) Medical hours as Branch needed for Wheezing or Shortness of Breath. albuterol Yes [id number] 2{puff} Inhale 2 [facility] 90 3-07 Puffs ity of mcg/actuati 00:00: every 6 [place] as on inhaler 00 (six) Medical hours as Branch needed for Wheezing or Shortness of Breath. albuterol Yes [id number] 2{puff} Inhale 2 [facility] 90 3-07 Puffs ity of mcg/actuati 00:00: every 6 [place] as on inhaler 00 (six) Medical hours as Branch needed for Wheezing or Shortness of Breath. albuterol Yes [id number] 2{puff} Inhale 2 [facility] 90 3-07 Puffs ity of mcg/actuati 00:00: every 6 [place] as on inhaler 00 (six) Medical hours as Branch needed for Wheezing or Shortness of Breath. albuterol Yes [id number] 2{puff} Inhale 2 [facility] 90 3-07 Puffs ity of mcg/actuati 00:00: every 6 [place] as on inhaler 00 (six) Medical hours as Branch needed for Wheezing or Shortness of Breath. albuterol Yes [id number] 2{puff} Inhale 2 [facility] 90 3-07 Puffs ity of mcg/actuati 00:00: every 6 [place] as on inhaler 00 (six) Medical hours as Branch needed for Wheezing or Shortness of Breath. albuterol Yes [id number] 2{puff} Inhale 2 [facility] 90 3-07 Puffs ity of mcg/actuati 00:00: every 6 [place] as on inhaler 00 (six) Medical hours as Branch needed for Wheezing or Shortness of Breath. albuterol Yes [id number] 2{puff} Inhale 2 [facility] 90 3-07 Puffs ity of mcg/actuati 00:00: every 6 [place] as on inhaler 00 (six) Medical hours as Branch needed for Wheezing or Shortness of Breath. albuterol Yes [id number] 2{puff} Inhale 2 [facility] 90 3-07 Puffs ity of mcg/actuati 00:00: every 6 [place] as on inhaler 00 (six) Medical hours as Branch needed for Wheezing or Shortness of Breath. albuterol Yes [id number] 2{puff} Inhale 2 [facility] 90 3-07 Puffs ity of mcg/actuati 00:00: every 6 [place] as on inhaler 00 (six) Medical hours as Branch needed for Wheezing or Shortness of Breath. albuterol Yes [id number] 2{puff} Inhale 2 [facility] 90 3-07 Puffs ity of mcg/actuati 00:00: every 6 [facility] as on inhaler 00 (six) Medical hours as Branch needed for Wheezing or Shortness of Breath. albuterol Yes [id number] 2{puff} Inhale 2 [facility] 90 3-07 Puffs ity of mcg/actuati 00:00: every 6 [facility] as on inhaler 00 (six) Medical hours as Branch needed for Wheezing or Shortness of Breath. albuterol Yes [id number] 2{puff} Inhale 2 [facility] 90 3-07 Puffs ity of mcg/actuati 00:00: every 6 [place] as on inhaler 00 (six) Medical hours as Branch needed for Wheezing or Shortness of Breath. albuterol Yes [id number] 2{puff} Inhale 2 [facility] 90 3-07 Puffs ity of mcg/actuati 00:00: every 6 [place] as on inhaler 00 (six) Medical hours as Branch needed for Wheezing or Shortness of Breath. albuterol Yes [id number] 2{puff} Inhale 2 [facility] 90 3-07 Puffs ity of mcg/actuati 00:00: every 6 [facility] as on inhaler 00 (six) Medical hours as Branch needed for Wheezing or Shortness of Breath. albuterol Yes [id number] 2{puff} Inhale 2 [facility] 90 3-07 Puffs ity of mcg/actuati 00:00: every 6 [facility] as on inhaler 00 (six) Medical hours as Branch needed for Wheezing or Shortness of Breath. albuterol Yes [id number] 2{puff} Inhale 2 [facility] 90 3-07 Puffs ity of mcg/actuati 00:00: every 6 [facility] as on inhaler 00 (six) Medical hours as Branch needed for Wheezing or Shortness of Breath. albuterol Yes [id number] 2{puff} Inhale 2 [facility] 90 3-07 Puffs ity of mcg/actuati 00:00: every 6 [facility] as on inhaler 00 (six) Medical hours as Branch needed for Wheezing or Shortness of Breath. albuterol Yes [id number] 2{puff} Inhale 2 [facility] 90 3-07 Puffs ity of mcg/actuati 00:00: every 6 [facility] as on inhaler 00 (six) Medical hours as Branch needed for Wheezing or Shortness of Breath. albuterol Yes [id number] 2{puff} Inhale 2 [facility] 90 3-07 Puffs ity of mcg/actuati 00:00: every 6 [facility] as on inhaler 00 (six) Medical hours as Branch needed for Wheezing or Shortness of Breath. albuterol Yes [id number] 2{puff} Inhale 2 [facility] 90 3-07 Puffs ity of mcg/actuati 00:00: every 6 [place] as on inhaler 00 (six) Medical hours as Branch needed for Wheezing or Shortness of Breath. albuterol Yes [id number] 2{puff} Inhale 2 [facility] 90 3-07 Puffs ity of mcg/actuati 00:00: every 6 [facility] as on inhaler 00 (six) Medical hours as Branch needed for Wheezing or Shortness of Breath. albuterol Yes [id number] 2{puff} Inhale 2 [facility] 90 3-07 Puffs ity of mcg/actuati 00:00: every 6 [facility] as on inhaler 00 (six) Medical hours as Branch needed for Wheezing or Shortness of Breath. albuterol Yes [id number] 2{puff} Inhale 2 [facility] 90 3-07 Puffs ity of mcg/actuati 00:00: every 6 [facility] as on inhaler 00 (six) Medical hours as Branch needed for Wheezing or Shortness of Breath. albuterol Yes [id number] 2{puff} Inhale 2 [facility] 90 3-07 Puffs ity of mcg/actuati 00:00: every 6 [facility] as on inhaler 00 (six) Medical hours as Branch needed for Wheezing or Shortness of Breath. albuterol Yes [id number] 2{puff} Inhale 2 [facility] 90 3-07 Puffs ity of mcg/actuati 00:00: every 6 [facility] as on inhaler 00 (six) Medical hours as Branch needed for Wheezing or Shortness of Breath. albuterol Yes [id number] 2{puff} Inhale 2 [facility] 90 3-07 Puffs ity of mcg/actuati 00:00: every 6 [facility] as on inhaler 00 (six) Medical hours as Branch needed for Wheezing or Shortness of Breath. albuterol Yes [id number] 2{puff} Inhale 2 [facility] 90 3-07 Puffs ity of mcg/actuati 00:00: every 6 [facility] as on inhaler 00 (six) Medical hours as Branch needed for Wheezing or Shortness of Breath. albuterol Yes [id number] 2{puff} Inhale 2 [facility] 90 3-07 Puffs ity of mcg/actuati 00:00: every 6 [facility] as on inhaler 00 (six) Medical hours as Branch needed for Wheezing or Shortness of Breath. albuterol Yes [id number] 2{puff} Inhale 2 [facility] 90 3-07 Puffs ity of mcg/actuati 00:00: every 6 [place] as on inhaler 00 (six) Medical hours as Branch needed for Wheezing or Shortness of Breath. albuterol Yes [id number] 2{puff} Inhale 2 [facility] 90 3-07 Puffs ity of mcg/actuati 00:00: every 6 [place] as on inhaler 00 (six) Medical hours as Branch needed for Wheezing or Shortness of Breath. albuterol Yes [id number] 2{puff} Inhale 2 [facility] 90 3-07 Puffs ity of mcg/actuati 00:00: every 6 [place] as on inhaler 00 (six) Medical hours as Branch needed for Wheezing or Shortness of Breath. albuterol Yes [id number] 2{puff} Inhale 2 [facility] 90 3-07 Puffs ity of mcg/actuati 00:00: every 6 [place] as on inhaler 00 (six) Medical hours as Branch needed for Wheezing or Shortness of Breath. albuterol Yes [id number] 2{puff} Inhale 2 [facility] 90 3-07 Puffs ity of mcg/actuati 00:00: every 6 [place] as on inhaler 00 (six) Medical hours as Branch needed for Wheezing or Shortness of Breath. albuterol Yes [id number] 2{puff} Inhale 2 [facility] 90 3-07 Puffs ity of mcg/actuati 00:00: every 6 [facility] as on inhaler 00 (six) Medical hours as Branch needed for Wheezing or Shortness of Breath. albuterol Yes [id number] 2{puff} Inhale 2 [facility] 90 3-07 Puffs ity of mcg/actuati 00:00: every 6 [place] as on inhaler 00 (six) Medical hours as Branch needed for Wheezing or Shortness of Breath. albuterol Yes [id number] 2{puff} Inhale 2 [facility] 90 3-07 Puffs ity of mcg/actuati 00:00: every 6 [place] as on inhaler 00 (six) Medical hours as Branch needed for Wheezing or Shortness of Breath. albuterol Yes [id number] 2{puff} Inhale 2 [facility] 90 3-07 Puffs ity of mcg/actuati 00:00: every 6 [place] as on inhaler 00 (six) Medical hours as Branch needed for Wheezing or Shortness of Breath. albuterol Yes [id number] 2{puff} Inhale 2 [facility] 90 3-07 Puffs ity of mcg/actuati 00:00: every 6 [place] as on inhaler 00 (six) Medical hours as Branch needed for Wheezing or Shortness of Breath. albuterol Yes [id number] 2{puff} Inhale 2 [facility] 90 3-07 Puffs ity of mcg/actuati 00:00: every 6 [place] as on inhaler 00 (six) Medical hours as Branch needed for Wheezing or Shortness of Breath. albuterol Yes [id number] 2{puff} Inhale 2 [facility] 90 3-07 Puffs ity of mcg/actuati 00:00: every 6 [place] as on inhaler 00 (six) Medical hours as Branch needed for Wheezing or Shortness of Breath. albuterol Yes [id number] 2{puff} Inhale 2 [facility] 90 3-07 Puffs ity of mcg/actuati 00:00: every 6 [place] as on inhaler 00 (six) Medical hours as Branch needed for Wheezing or Shortness of Breath. albuterol Yes [id number] 2{puff} Inhale 2 [facility] 90 3-07 Puffs ity of mcg/actuati 00:00: every 6 [place] as on inhaler 00 (six) Medical hours as Branch needed for Wheezing or Shortness of Breath. albuterol Yes [id number] 2{puff} Inhale 2 [facility] 90 3-07 Puffs ity of mcg/actuati 00:00: every 6 [place] as on inhaler 00 (six) Medical hours as Branch needed for Wheezing or Shortness of Breath. albuterol Yes [id number] 2{puff} Inhale 2 [facility] 90 3-07 Puffs ity of mcg/actuati 00:00: every 6 [place] as on inhaler 00 (six) Medical hours as Branch needed for Wheezing or Shortness of Breath. albuterol Yes [id number] 2{puff} Inhale 2 [facility] 90 3-07 Puffs ity of mcg/actuati 00:00: every 6 [place] as on inhaler 00 (six) Medical hours as Branch needed for Wheezing or Shortness of Breath. albuterol Yes [id number] 2{puff} Inhale 2 [facility] 90 3-07 Puffs ity of mcg/actuati 00:00: every 6 [facility] as on inhaler 00 (six) Medical hours as Branch needed for Wheezing or Shortness of Breath. albuterol Yes [id number] 2{puff} Inhale 2 [facility] 90 3-07 Puffs ity of mcg/actuati 00:00: every 6 [place] as on inhaler 00 (six) Medical hours as Branch needed for Wheezing or Shortness of Breath. albuterol Yes [id number] 2{puff} Inhale 2 [facility] 90 3-07 Puffs ity of mcg/actuati 00:00: every 6 [place] as on inhaler 00 (six) Medical hours as Branch needed for Wheezing or Shortness of Breath. albuterol Yes [id number] 2{puff} Inhale 2 [facility] 90 3-07 Puffs ity of mcg/actuati 00:00: every 6 [facility] as on inhaler 00 (six) Medical hours as Branch needed for Wheezing or Shortness of Breath. albuterol Yes [id number] 2{puff} Inhale 2 [facility] 90 3-07 Puffs ity of mcg/actuati 00:00: every 6 [place] as on inhaler 00 (six) Medical hours as Branch needed for Wheezing or Shortness of Breath. albuterol Yes [id number] 2{puff} Inhale 2 [facility] 90 3-07 Puffs ity of mcg/actuati 00:00: every 6 [place] as on inhaler 00 (six) Medical hours as Branch needed for Wheezing or Shortness of Breath. albuterol Yes [id number] 2{puff} Inhale 2 [facility] 90 3-07 Puffs ity of mcg/actuati 00:00: every 6 [place] as on inhaler 00 (six) Medical hours as Branch needed for Wheezing or Shortness of Breath. albuterol Yes [id number] 2{puff} Inhale 2 [facility] 90 3-07 Puffs ity of mcg/actuati 00:00: every 6 [place] as on inhaler 00 (six) Medical hours as Branch needed for Wheezing or Shortness of Breath. albuterol Yes [id number] 2{puff} Inhale 2 [facility] 90 3-07 Puffs ity of mcg/actuati 00:00: every 6 [place] as on inhaler 00 (six) Medical hours as Branch needed for Wheezing or Shortness of Breath. albuterol Yes [id number] 2{puff} Inhale 2 [facility] 90 3-07 Puffs ity of mcg/actuati 00:00: every 6 [place] as on inhaler 00 (six) Medical hours as Branch needed for Wheezing or Shortness of Breath. albuterol Yes [id number] 2{puff} Inhale 2 [facility] 90 3-07 Puffs ity of mcg/actuati 00:00: every 6 [place] as on inhaler 00 (six) Medical hours as Branch needed for Wheezing or Shortness of Breath. albuterol Yes [id number] 2{puff} Inhale 2 [facility] 90 3-07 Puffs ity of mcg/actuati 00:00: every 6 [place] as on inhaler 00 (six) Medical hours as Branch needed for Wheezing or Shortness of Breath. albuterol Yes [id number] 2{puff} Inhale 2 [facility] 90 3-07 Puffs ity of mcg/actuati 00:00: every 6 [place] as on inhaler 00 (six) Medical hours as Branch needed for Wheezing or Shortness of Breath. albuterol Yes [id number] 2{puff} Inhale 2 [facility] 90 3-07 Puffs ity of mcg/actuati 00:00: every 6 [place] as on inhaler 00 (six) Medical hours as Branch needed for Wheezing or Shortness of Breath. albuterol Yes [id number] 2{puff} Inhale 2 [facility] 90 3-07 Puffs ity of mcg/actuati 00:00: every 6 [place] as on inhaler 00 (six) Medical hours as Branch needed for Wheezing or Shortness of Breath. albuterol Yes [id number] 2{puff} Inhale 2 [facility] 90 3-07 Puffs ity of mcg/actuati 00:00: every 6 [place] as on inhaler 00 (six) Medical hours as Branch needed for Wheezing or Shortness of Breath. benzonatate 2022- No [id number] 200mg Take 1 [facility] 200 mg 3-15 capsule by ity of capsule 00:00: 04:59 mouth 3 [place] 00 :00 (three) Medical times Branch daily as needed for Cough for up to 7 days. benzonatate 2022- No [id number] 200mg Take 1 [facility] 200 mg 3-15 capsule by ity of capsule 00:00: 04:59 mouth 3 [place] 00 :00 (three) Medical times Branch daily as needed for Cough for up to 7 days. benzonatate 2022- No [id number] 200mg Take 1 [facility] 200 mg 3- 03-15 capsule by ity of capsule 00:00: 04:59 mouth 3 [place] 00 :00 (three) Medical times Branch daily as needed for Cough for up to 7 days. benzonatate 2022- No [id number] 200mg Take 1 [facility] 200 mg 3- 03-15 capsule by ity of capsule 00:00: 04:59 mouth 3 [place] 00 :00 (three) Medical times Branch daily as needed for Cough for up to 7 days. benzonatate 2022-0 2022- No [id number] 200mg Take 1 [facility] 200 mg 01-2715 capsule by ity of capsule 00:00: 04:59 mouth 3 [place] 00 :00 (three) Medical times Branch daily as needed for Cough for up to 7 days. benzonatate 2022-0 2022- No [id number] 200mg Take 1 [facility] 200 mg 01-2715 capsule by ity of capsule 00:00: 04:59 mouth 3 [place] 00 :00 (three) Medical times Branch daily as needed for Cough for up to 7 days. benzonatate 2022-2022- No [id number] 200mg Take 1 [facility] 200 mg 01-27 capsule by ity of capsule 00:00: 04:59 mouth 3 [place] 00 :00 (three) Medical times Branch daily as needed for Cough for up to 7 days. benzonatate 2022-2022- No [id number] 200mg Take 1 [facility] 200 mg 01-27 capsule by ity of capsule 00:00: 04:59 mouth 3 [place] 00 :00 (three) Medical times Branch daily as needed for Cough for up to 7 days. famotidine 0 Yes [id number] 20mg Take 1 [facility] (PEPCID) 20 3-03 tablet by ity of mg tablet 00:00: mouth [place] 00 daily. Medical Branch famotidine 0 Yes [id number] 20mg Take 1 [facility] (PEPCID) 20 3-03 tablet by ity of mg tablet 00:00: mouth [place] 00 daily. Medical Branch famotidine 2022-0 Yes [id number] 20mg Take 1 [facility] (PEPCID) 20 3-03 tablet by ity of mg tablet 00:00: mouth [place] 00 daily. Medical Branch famotidine 0 Yes [id number] 20mg Take 1 [facility] (PEPCID) 20 3-03 tablet by ity of mg tablet 00:00: mouth [place] 00 daily. Medical Branch famotidine 0 Yes [id number] 20mg Take 1 [facility] (PEPCID) 20 3-03 tablet by ity of mg tablet 00:00: mouth [place] 00 daily. Medical Branch famotidine 2022-0 Yes [id number] 20mg Take 1 [facility] (PEPCID) 20 3-03 tablet by ity of mg tablet 00:00: mouth [place] 00 daily. Medical Branch famotidine 0 Yes [id number] 20mg Take 1 [facility] (PEPCID) 20 3-03 tablet by ity of mg tablet 00:00: mouth [place] 00 daily. Medical Branch famotidine 0 Yes [id number] 20mg Take 1 [facility] (PEPCID) 20 3-03 tablet by ity of mg tablet 00:00: mouth [place] 00 daily. Medical Branch famotidine 0 Yes [id number] 20mg Take 1 [facility] (PEPCID) 20 3-03 tablet by ity of mg tablet 00:00: mouth [place] 00 daily. [facility] Branch famotidine 0 Yes [id number] 20mg Take 1 [facility] (PEPCID) 20 3-03 tablet by ity of mg tablet 00:00: mouth [place] 00 daily. Medical Branch famotidine 0 Yes [id number] 20mg Take 1 [facility] (PEPCID) 20 3-03 tablet by ity of mg tablet 00:00: mouth [place] 00 daily. Medical Branch famotidine 0 Yes [id number] 20mg Take 1 [facility] (PEPCID) 20 3-03 tablet by ity of mg tablet 00:00: mouth [place] 00 daily. [facility] Branch famotidine 0 Yes [id number] 20mg Take 1 [facility] (PEPCID) 20 3-03 tablet by ity of mg tablet 00:00: mouth [place] 00 daily. [facility] Branch famotidine 2022- No [id number] 20mg Take 1 [facility] (PEPCID) 20 3-03 03-10 tablet by it y of mg tablet 00:00: 00:00 mouth [place] 00 :00 daily. [facility] Branch famotidine 0 2022- No [id number] 20mg Take 1 [facility] (PEPCID) 20 3-03 03-10 tablet by it y of mg tablet 00:00: 00:00 mouth [place] 00 :00 daily. Medical Branch MONTELUKAST 2022-0 Yes [id number] 10mg TAKE 1 [facility] 10 mg 2-16 TABLET BY ity of tablet 00:00: MOUTH [place] 00 EVERY Medical [facility] Branch MONTELUKAST 2022-0 Yes [id number] 10mg TAKE 1 [facility] 10 mg 2-16 TABLET BY ity of tablet 00:00: MOUTH [place] 00 EVERY Medical EVENING Branch MONTELUKAST 2022-0 Yes [id number] 10mg TAKE 1 [facility] 10 mg 2-16 TABLET BY ity of tablet 00:00: MOUTH [place] 00 EVERY Medical EVENING Branch MONTELUKAST 2022-0 Yes [id number] 10mg TAKE 1 [facility] 10 mg 2-16 TABLET BY ity of tablet 00:00: MOUTH 00 EVERY Medical EVENING Branch MONTELUKAST 2022-0 Yes [id number] 10mg TAKE 1 [facility] 10 mg 2-16 TABLET BY ity of tablet 00:00: MOUTH [place] 00 EVERY Medical EVENING Branch MONTELUKAST 0 Yes [id number] 10mg TAKE 1 [facility] 10 mg 2-16 TABLET BY ity of tablet 00:00: MOUTH 00 EVERY Medical EVENING Branch MONTELUKAST 0 Yes [id number] 10mg TAKE 1 [facility] 10 mg 2-16 TABLET BY ity of tablet 00:00: MOUTH 00 EVERY Medical EVENING Branch MONTELUKAST 2022-0 Yes [id number] 10mg TAKE 1 [facility] 10 mg 2-16 TABLET BY ity of tablet 00:00: MOUTH [place] 00 EVERY Medical EVENING Branch MONTELUKAST 0 Yes [id number] 10mg TAKE 1 [facility] 10 mg 2-16 TABLET BY ity of tablet 00:00: MOUTH 00 EVERY Medical EVENING Branch MONTELUKAST 2022-0 Yes [id number] 10mg TAKE 1 [facility] 10 mg 2-16 TABLET BY ity of tablet 00:00: MOUTH 00 EVERY Medical EVENING Branch MONTELUKAST 2022-0 Yes [id number] 10mg TAKE 1 [facility] 10 mg 2-16 TABLET BY ity of tablet 00:00: MOUTH [place] 00 EVERY Medical EVENING Branch MONTELUKAST 2022-0 Yes [id number] 10mg TAKE 1 [facility] 10 mg 2-16 TABLET BY ity of tablet 00:00: MOUTH [place] 00 EVERY Medical EVENING Branch MONTELUKAST 2022-0 Yes [id number] 10mg TAKE 1 [facility] 10 mg 2-16 TABLET BY ity of tablet 00:00: MOUTH [place] 00 EVERY Medical EVENING Branch MONTELUKAST 2022-0 Yes [id number] 10mg TAKE 1 [facility] 10 mg 2-16 TABLET BY ity of tablet 00:00: MOUTH 00 EVERY Medical EVENING Branch MONTELUKAST 2023-0 Yes [id number] 10mg TAKE 1 [facility] 10 mg 2-16 TABLET BY ity of tablet 00:00: MOUTH [place] 00 EVERY Medical EVENING Branch MONTELUKAST 0 Yes [id number] 10mg TAKE 1 [facility] 10 mg 2-16 TABLET BY ity of tablet 00:00: MOUTH [place] 00 EVERY Medical EVENING Branch MONTELUKAST 0 Yes [id number] 10mg TAKE 1 [facility] 10 mg 2-16 TABLET BY ity of tablet 00:00: MOUTH [place] 00 EVERY Medical EVENING Branch MONTELUKAST 0 Yes [id number] 10mg TAKE 1 [facility] 10 mg 2-16 TABLET BY ity of tablet 00:00: MOUTH [place] 00 EVERY Medical EVENING Branch MONTELUKAST Yes [id number] 10mg TAKE 1 [facility] 10 mg 2-16 TABLET BY ity of tablet 00:00: MOUTH [place] 00 EVERY Medical EVENING Branch MONTELUKAST 0 Yes [id number] 10mg TAKE 1 [facility] 10 mg 2-16 TABLET BY ity of tablet 00:00: MOUTH 00 EVERY Medical EVENING Branch MONTELUKAST 0 Yes [id number] 10mg TAKE 1 [facility] 10 mg 2-16 TABLET BY ity of tablet 00:00: MOUTH [place] 00 EVERY Medical EVENING Branch MONTELUKAST 0 Yes [id number] 10mg TAKE 1 [facility] 10 mg 2-16 TABLET BY ity of tablet 00:00: MOUTH [place] 00 EVERY Medical EVENING Branch MONTELUKAST 0 Yes [id number] 10mg TAKE 1 [facility] 10 mg 2-16 TABLET BY ity of tablet 00:00: MOUTH [place] 00 EVERY Medical EVENING Branch MONTELUKAST 2022-0 Yes [id number] 10mg TAKE 1 [facility] 10 mg 2-16 TABLET BY ity of tablet 00:00: MOUTH [place] 00 EVERY Medical EVENING Branch MONTELUKAST 2022-0 Yes [id number] 10mg TAKE 1 [facility] 10 mg 2-16 TABLET BY ity of tablet 00:00: MOUTH [place] 00 EVERY Medical EVENING Branch MONTELUKAST 2022-0 Yes [id number] 10mg TAKE 1 [facility] 10 mg 2-16 TABLET BY ity of tablet 00:00: MOUTH [place] 00 EVERY Medical EVENING Branch MONTELUKAST 2022-0 Yes [id number] 10mg TAKE 1 [facility] 10 mg 2-16 TABLET BY ity of tablet 00:00: MOUTH [place] 00 EVERY Medical EVENING Branch MONTELUKAST 0 Yes [id number] 10mg TAKE 1 [facility] 10 mg 2-16 TABLET BY ity of tablet 00:00: MOUTH [place] 00 EVERY Medical EVENING Branch MONTELUKAST 0 Yes [id number] 10mg TAKE 1 [facility] 10 mg 2-16 TABLET BY ity of tablet 00:00: MOUTH [place] 00 EVERY Medical EVENING Branch MONTELUKAST 0 Yes [id number] 10mg TAKE 1 [facility] 10 mg 2-16 TABLET BY ity of tablet 00:00: MOUTH [place] 00 EVERY Medical EVENING Branch MONTELUKAST 0 Yes [id number] 10mg TAKE 1 [facility] 10 mg 2-16 TABLET BY ity of tablet 00:00: MOUTH [place] 00 EVERY Medical EVENING Branch MONTELUKAST 0 Yes [id number] 10mg TAKE 1 [facility] 10 mg 2-16 TABLET BY ity of tablet 00:00: MOUTH [place] 00 EVERY Medical EVENING Branch MONTELUKAST 0 Yes [id number] 10mg TAKE 1 [facility] 10 mg 2-16 TABLET BY ity of tablet 00:00: MOUTH [place] 00 EVERY Medical EVENING Branch MONTELUKAST 0 Yes [id number] 10mg TAKE 1 [facility] 10 mg 2-16 TABLET BY ity of tablet 00:00: MOUTH [place] 00 EVERY Medical EVENING Branch MONTELUKAST 0 Yes [id number] 10mg TAKE 1 [facility] 10 mg 2-16 TABLET BY ity of tablet 00:00: MOUTH [place] 00 EVERY Medical EVENING Branch MONTELUKAST 0 Yes [id number] 10mg TAKE 1 [facility] 10 mg 2-16 TABLET BY ity of tablet 00:00: MOUTH [place] 00 EVERY Medical EVENING Branch MONTELUKAST 2022-0 2022- No [id number] 10mg TAKE 1 [facility] 10 mg 2-16 05-18 TABLET BY ity of tablet 00:00: 00:00 MOUTH [place] 00 :00 EVERY Medical EVENING Branch MONTELUKAST 2022-0 2022- No [id number] 10mg TAKE 1 [facility] 10 mg 2-16 05-18 TABLET BY ity of tablet 00:00: 00:00 MOUTH [place] 00 :00 EVERY Medical EVENING Branch MONTELUKAST 2022-0 2022- No [id number] 10mg TAKE 1 [facility] 10 mg 2-16 05-18 TABLET BY ity of tablet 00:00: 00:00 MOUTH [place] 00 :00 EVERY Medical EVENING Branch OMEPRAZOLE 2- Yes [id number] 20mg TAKE 1 [facility] 20 mg 2-19 CAPSULE BY ity of capsule 00:00: [facility] DAILY Medical Branch OMEPRAZOLE 2021- Yes [id number] 20mg TAKE 1 [facility] 20 mg 2-19 CAPSULE BY ity of capsule 00:00: [facility] DAILY Medical Branch OMEPRAZOLE 2021- Yes [id number] 20mg TAKE 1 [facility] 20 mg 2-19 CAPSULE BY ity of capsule 00:00: [facility] DAILY Medical Branch OMEPRAZOLE 2021- Yes [id number] 20mg TAKE 1 [facility] 20 mg 2-19 CAPSULE BY ity of capsule 00:00: [facility] DAILY Medical Branch OMEPRAZOLE 2021- Yes [id number] 20mg TAKE 1 [facility] 20 mg 2-19 CAPSULE BY ity of capsule 00:00: [facility] DAILY Medical Branch OMEPRAZOLE 2021- Yes [id number] 20mg TAKE 1 [facility] 20 mg 2-19 CAPSULE BY ity of capsule 00:00: [facility] DAILY Medical Branch OMEPRAZOLE 2021- Yes [id number] 20mg TAKE 1 [facility] 20 mg 2-19 CAPSULE BY ity of capsule 00:00: [facility] DAILY Medical Branch OMEPRAZOLE 2- Yes [id number] 20mg TAKE 1 [facility] 20 mg 2-19 CAPSULE BY ity of capsule 00:00: [facility] DAILY Medical Branch OMEPRAZOLE 2- Yes [id number] 20mg TAKE 1 [facility] 20 mg 2-19 CAPSULE BY ity of capsule 00:00: [facility] DAILY Medical Branch OMEPRAZOLE 2-1 Yes [id number] 20mg TAKE 1 [facility] 20 mg 2-19 CAPSULE BY ity of capsule 00:00: [facility] DAILY Medical Branch OMEPRAZOLE 2-1 Yes [id number] 20mg TAKE 1 [facility] 20 mg 2-19 CAPSULE BY ity of capsule 00:00: [facility] DAILY Medical Branch OMEPRAZOLE 2- Yes [id number] 20mg TAKE 1 [facility] 20 mg 2-19 CAPSULE BY ity of capsule 00:00: [facility] DAILY Medical Branch OMEPRAZOLE 2021- Yes [id number] 20mg TAKE 1 [facility] 20 mg 2-19 CAPSULE BY ity of capsule 00:00: [facility] DAILY Medical Branch OMEPRAZOLE 2- Yes [id number] 20mg TAKE 1 [facility] 20 mg 2-19 CAPSULE BY ity of capsule 00:00: [facility] DAILY Medical Branch OMEPRAZOLE 2- Yes [id number] 20mg TAKE 1 [facility] 20 mg 2-19 CAPSULE BY ity of capsule 00:00: [facility] DAILY Medical Branch OMEPRAZOLE 2- Yes [id number] 20mg TAKE 1 [facility] 20 mg 2-19 CAPSULE BY ity of capsule 00:00: [facility] DAILY Medical Branch OMEPRAZOLE 2021- Yes [id number] 20mg TAKE 1 [facility] 20 mg 2-19 CAPSULE BY ity of capsule 00:00: [facility] DAILY Medical Branch OMEPRAZOLE 2021- Yes [id number] 20mg TAKE 1 [facility] 20 mg 2-19 CAPSULE BY ity of capsule 00:00: [facility] DAILY Medical Branch OMEPRAZOLE 2021- Yes [id number] 20mg TAKE 1 [facility] 20 mg 2-19 CAPSULE BY ity of capsule 00:00: [facility] DAILY Medical Branch OMEPRAZOLE 2021- Yes [id number] 20mg TAKE 1 [facility] 20 mg 2-19 CAPSULE BY ity of capsule 00:00: [facility] DAILY Medical Branch OMEPRAZOLE 2021- Yes [id number] 20mg TAKE 1 [facility] 20 mg 2-19 CAPSULE BY ity of capsule 00:00: [facility] DAILY Medical Branch OMEPRAZOLE 2021- Yes [id number] 20mg TAKE 1 [facility] 20 mg 2-19 CAPSULE BY ity of capsule 00:00: [facility] DAILY Medical Branch OMEPRAZOLE 2- Yes [id number] 20mg TAKE 1 [facility] 20 mg 2-19 CAPSULE BY ity of capsule 00:00: [facility] DAILY Medical Branch OMEPRAZOLE 2021- Yes [id number] 20mg TAKE 1 [facility] 20 mg 2-19 CAPSULE BY ity of capsule 00:00: [facility] DAILY Medical Branch OMEPRAZOLE 2021- Yes [id number] 20mg TAKE 1 [facility] 20 mg 2-19 CAPSULE BY ity of capsule 00:00: [facility] DAILY Medical Branch OMEPRAZOLE 2021- Yes [id number] 20mg TAKE 1 [facility] 20 mg 2-19 CAPSULE BY ity of capsule 00:00: [facility] DAILY Medical Branch OMEPRAZOLE 2021- Yes [id number] 20mg TAKE 1 [facility] 20 mg 2-19 CAPSULE BY ity of capsule 00:00: MOUTH [place] DAILY Medical Branch OMEPRAZOLE 2021- Yes [id number] 20mg TAKE 1 [facility] 20 mg 2-19 CAPSULE BY ity of capsule 00:00: MOUTH [place] DAILY Medical Branch OMEPRAZOLE 2021- Yes [id number] 20mg TAKE 1 [facility] 20 mg 2-19 CAPSULE BY ity of capsule 00:00: [facility] DAILY Medical Branch OMEPRAZOLE 2021- Yes [id number] 20mg TAKE 1 [facility] 20 mg 2-19 CAPSULE BY ity of capsule 00:00: MOUTH [place] DAILY Medical Branch OMEPRAZOLE 2021-11 Yes [id number] 20mg TAKE 1 [facility] 20 mg 2-19 CAPSULE BY ity of capsule 00:00: [facility] DAILY Medical Branch OMEPRAZOLE 2021-11 Yes [id number] 20mg TAKE 1 [facility] 20 mg 2-19 CAPSULE BY ity of capsule 00:00: [facility] DAILY Medical Branch OMEPRAZOLE 2021-11 Yes [id number] 20mg TAKE 1 [facility] 20 mg 2-19 CAPSULE BY ity of capsule 00:00: [facility] DAILY Medical Branch OMEPRAZOLE 2021- Yes [id number] 20mg TAKE 1 [facility] 20 mg 2-19 CAPSULE BY ity of capsule 00:00: [facility] DAILY Medical Branch OMEPRAZOLE 2021- Yes [id number] 20mg TAKE 1 [facility] 20 mg 2-19 CAPSULE BY ity of capsule 00:00: [facility] DAILY Medical Branch OMEPRAZOLE 2021- Yes [id number] 20mg TAKE 1 [facility] 20 mg 2-19 CAPSULE BY ity of capsule 00:00: [facility] DAILY Medical Branch OMEPRAZOLE 2021- Yes [id number] 20mg TAKE 1 [facility] 20 mg 2-19 CAPSULE BY ity of capsule 00:00: [facility] DAILY Medical Branch OMEPRAZOLE 2021- Yes [id number] 20mg TAKE 1 [facility] 20 mg 2-19 CAPSULE BY ity of capsule 00:00: [facility] DAILY Medical Branch OMEPRAZOLE 2021- Yes [id number] 20mg TAKE 1 [facility] 20 mg 2-19 CAPSULE BY ity of capsule 00:00: [facility] DAILY Medical Branch OMEPRAZOLE 2021-3- No [id number] 20mg TAKE 1 [facility] 20 mg 2-19 04-20 CAPSULE BY ity of capsule 00:00: 00:00 MOUTH [place] 00 :00 DAILY Medical [place] tiotropium 2021-11 Yes [id number] 18ug Inhale 1 [facility] 18 mcg 1-23 capsule ity of inhalation 00:00: daily. [place] [facility] tiotropium 2021-11 Yes [id number] 18ug Inhale 1 [facility] 18 mcg 1-23 capsule ity of inhalation 00:00: daily. [place] [facility] tiotropium 2021-11 Yes [id number] 18ug Inhale 1 [facility] 18 mcg 1-23 capsule ity of inhalation 00:00: daily. [place] [facility] tiotropium 2021-11 Yes [id number] 18ug Inhale 1 [facility] 18 mcg 1-23 capsule ity of inhalation 00:00: daily. [place] [facility] tiotropium 2021-11 Yes [id number] 18ug Inhale 1 [facility] 18 mcg 1-23 capsule ity of inhalation 00:00: daily. [place] [facility] tiotropium 2021-11 Yes [id number] 18ug Inhale 1 [facility] 18 mcg 1-23 capsule ity of inhalation 00:00: daily. [place] [facility] tiotropium 2021-11 Yes [id number] 18ug Inhale 1 [facility] 18 mcg 1-23 capsule ity of inhalation 00:00: daily. [place] [facility] tiotropium 2021-11 Yes [id number] 18ug Inhale 1 [facility] 18 mcg 1-23 capsule ity of inhalation 00:00: daily. [place] [facility] tiotropium 2021-11 Yes [id number] 18ug Inhale 1 [facility] 18 mcg 1-23 capsule ity of inhalation 00:00: daily. [place] [facility] tiotropium 2021-11 Yes [id number] 18ug Inhale 1 [facility] 18 mcg 1-23 capsule ity of inhalation 00:00: daily. [place] [facility] tiotropium 2021-11 Yes [id number] 18ug Inhale 1 [facility] 18 mcg 1-23 capsule ity of inhalation 00:00: daily. [place] [facility] tiotropium 2021-11 Yes [id number] 18ug Inhale 1 [facility] 18 mcg 1-23 capsule ity of inhalation 00:00: daily. [place] [facility] tiotropium 2021-11 Yes [id number] 18ug Inhale 1 [facility] 18 mcg 1-23 capsule ity of inhalation 00:00: daily. [place] [facility] tiotropium 2021-11 Yes [id number] 18ug Inhale 1 [facility] 18 mcg 1-23 capsule ity of inhalation 00:00: daily. [place] [facility] tiotropium 2021-11 Yes [id number] 18ug Inhale 1 [facility] 18 mcg 1-23 capsule ity of inhalation 00:00: daily. [place] [facility] tiotropium 2021-11 Yes [id number] 18ug Inhale 1 [facility] 18 mcg 1-23 capsule ity of inhalation 00:00: daily. [place] [facility] tiotropium 2021-11 Yes [id number] 18ug Inhale 1 [facility] 18 mcg 1-23 capsule ity of inhalation 00:00: daily. [place] [facility] tiotropium 2021-11 Yes [id number] 18ug Inhale 1 [facility] 18 mcg 1-23 capsule ity of inhalation 00:00: daily. [place] [facility] tiotropium 2021-11 Yes [id number] 18ug Inhale 1 [facility] 18 mcg 1-23 capsule ity of inhalation 00:00: daily. [place] [facility] tiotropium 2021-11 Yes [id number] 18ug Inhale 1 [facility] 18 mcg 1-23 capsule ity of inhalation 00:00: daily. [place] [facility] tiotropium 2021-11 Yes [id number] 18ug Inhale 1 [facility] 18 mcg 1-23 capsule ity of inhalation 00:00: daily. [place] [facility] tiotropium 2021-11 Yes [id number] 18ug Inhale 1 [facility] 18 mcg 1-23 capsule ity of inhalation 00:00: daily. [place] [facility] tiotropium 2021-11 Yes [id number] 18ug Inhale 1 [facility] 18 mcg 1-23 capsule ity of inhalation 00:00: daily. [place] [facility] tiotropium 2021-11 Yes [id number] 18ug Inhale 1 [facility] 18 mcg 1-23 capsule ity of inhalation 00:00: daily. [place] [facility] tiotropium 2021-11 Yes [id number] 18ug Inhale 1 [facility] 18 mcg 1-23 capsule ity of inhalation 00:00: daily. [place] [facility] tiotropium 2021-11 Yes [id number] 18ug Inhale 1 [facility] 18 mcg 1-23 capsule ity of inhalation 00:00: daily. [address] Branch tiotropium 2021-11 Yes [id number] 18ug Inhale 1 [facility] 18 mcg 1-23 capsule ity of inhalation 00:00: daily. [place] [facility] tiotropium 2021-11 Yes [id number] 18ug Inhale 1 [facility] 18 mcg 1-23 capsule ity of inhalation 00:00: daily. [place] [facility] tiotropium 2021-11 Yes [id number] 18ug Inhale 1 [facility] 18 mcg 1-23 capsule ity of inhalation 00:00: daily. [place] [facility] tiotropium 2021-11 Yes [id number] 18ug Inhale 1 [facility] 18 mcg 1-23 capsule ity of inhalation 00:00: daily. [place] [facility] tiotropium 2021-11 Yes [id number] 18ug Inhale 1 [facility] 18 mcg 1-23 capsule ity of inhalation 00:00: daily. [place] [facility] tiotropium 2021-11 Yes [id number] 18ug Inhale 1 [facility] 18 mcg 1-23 capsule ity of inhalation 00:00: daily. [place] [facility] tiotropium 2021-11 Yes [id number] 18ug Inhale 1 [facility] 18 mcg 1-23 capsule ity of inhalation 00:00: daily. [place] [facility] tiotropium 2021-11 Yes [id number] 18ug Inhale 1 [facility] 18 mcg 1-23 capsule ity of inhalation 00:00: daily. [place] [facility] tiotropium 2021-11 Yes [id number] 18ug Inhale 1 [facility] 18 mcg 1-23 capsule ity of inhalation 00:00: daily. [place] [facility] tiotropium 2021-11 Yes [id number] 18ug Inhale 1 [facility] 18 mcg 1-23 capsule ity of inhalation 00:00: daily. [place] [facility] tiotropium 2021-11 Yes [id number] 18ug Inhale 1 [facility] 18 mcg 1-23 capsule ity of inhalation 00:00: daily. [place] [facility] tiotropium 2021-11 Yes [id number] 18ug Inhale 1 [facility] 18 mcg 1-23 capsule ity of inhalation 00:00: daily. [place] [facility] tiotropium 2021-11 Yes [id number] 18ug Inhale 1 [facility] 18 mcg 1-23 capsule ity of inhalation 00:00: daily. [place] [facility] tiotropium 2021-11 Yes [id number] 18ug Inhale 1 [facility] 18 mcg 1-23 capsule ity of inhalation 00:00: daily. [place] [facility] tiotropium 2021-11 Yes [id number] 18ug Inhale 1 [facility] 18 mcg 1-23 capsule ity of inhalation 00:00: daily. [place] [facility] tiotropium 2021-11 Yes [id number] 18ug Inhale 1 [facility] 18 mcg 1-23 capsule ity of inhalation 00:00: daily. [place] [facility] tiotropium 2021-11 Yes [id number] 18ug Inhale 1 [facility] 18 mcg 1-23 capsule ity of inhalation 00:00: daily. [place] [facility] tiotropium 2021-11 Yes [id number] 18ug Inhale 1 [facility] 18 mcg 1-23 capsule ity of inhalation 00:00: daily. [place] [facility] tiotropium 2021-11 Yes [id number] 18ug Inhale 1 [facility] 18 mcg 1-23 capsule ity of inhalation 00:00: daily. [place] [facility] tiotropium 2021-11 Yes [id number] 18ug Inhale 1 [facility] 18 mcg 1-23 capsule ity of inhalation 00:00: daily. [place] [facility] tiotropium 2021-11 Yes [id number] 18ug Inhale 1 [facility] 18 mcg 1-23 capsule ity of inhalation 00:00: daily. [place] [facility] tiotropium 2021-11 Yes [id number] 18ug Inhale 1 [facility] 18 mcg 1-23 capsule ity of inhalation 00:00: daily. [place] [facility] tiotropium 2021-11 Yes [id number] 18ug Inhale 1 [facility] 18 mcg 1-23 capsule ity of inhalation 00:00: daily. [place] [facility] tiotropium 2021-11 Yes [id number] 18ug Inhale 1 [facility] 18 mcg 1-23 capsule ity of inhalation 00:00: daily. [place] [facility] tiotropium 2021-11 Yes [id number] 18ug Inhale 1 [facility] 18 mcg 1-23 capsule ity of inhalation 00:00: daily. [place] [facility] tiotropium 2021-11 Yes [id number] 18ug Inhale 1 [facility] 18 mcg 1-23 capsule ity of inhalation 00:00: daily. [place] [facility] tiotropium 2021-11 Yes [id number] 18ug Inhale 1 [facility] 18 mcg 1-23 capsule ity of inhalation 00:00: daily. [facility] tiotropium 2021-11 Yes [id number] 18ug Inhale 1 [facility] 18 mcg 1-23 capsule ity of inhalation 00:00: daily. [facility] tiotropium 2021-11 Yes [id number] 18ug Inhale 1 [facility] 18 mcg 1-23 capsule ity of inhalation 00:00: daily. [facility] tiotropium 2021-11- No [id number] 18ug Inhale 1 [facility] 18 mcg 1-23 06-09 capsule [facility] of inhalation [place]:00[place] [facility] tiotropium 2021-11- No [id number] 18ug Inhale 1 [facility] 18 mcg 1-23 -09 capsule [facility] of inhalation 00:00[place] [facility] calcium 2021-11 Yes 650mg Take 650 Unive rs carbonate 0-25 mg by ity of 650 mg 09:32: mouth [place] calcium 41 daily. Medical (1,625 mg) Branch tablet calcium 2021-11 Yes 650mg Take 650 Un[facility] rs carbonate 0-25 mg by ity of 650 mg 09:32: mouth [place] calcium 41 daily. Medical (1,625 mg) Branch tablet calcium 2021-11 Yes 650mg Take 650 Un[facility] rs carbonate 0-25 mg by ity of 650 mg 09:32: mouth [place] calcium 41 daily. Medical (1,625 mg) Branch tablet calcium 2021-11 Yes 650mg Take 650 Un[facility] rs carbonate 0-25 mg by ity of 650 mg 09:32: mouth [place] calcium 41 daily. Medical (1,625 mg) Branch tablet calcium 2021-11 Yes 650mg Take 650 [facility] rs carbonate 0-25 mg by ity of 650 mg 09:32: mouth [place] calcium 41 daily. Medical (1,625 mg) Branch tablet calcium 2021-11 Yes 650mg Take 650 Un[facility] rs carbonate 0-25 mg by ity of 650 mg 09:32: mouth [place] calcium 41 daily. Medical (1,625 mg) Branch tablet calcium 2021-11 Yes 650mg Take 650 Un[facility] rs carbonate 0-25 mg by ity of 650 mg 09:32: mouth [place] calcium 41 daily. Medical (1,625 mg) Branch tablet calcium 2021-11 Yes 650mg Take 650 [facility] rs carbonate 0-25 mg by ity of 650 mg 09:32: mouth [place] calcium 41 daily. Medical (1,625 mg) Branch tablet calcium 2021-11 Yes 650mg Take 650 [facility] rs carbonate 0-25 mg by ity of 650 mg 09:32: mouth [place] calcium 41 daily. Medical (1,625 mg) Branch tablet calcium 2021-11 Yes 650mg Take 650 [facility] rs carbonate 0-25 mg by ity of 650 mg 09:32: mouth [place] calcium 41 daily. Medical (1,625 mg) Branch tablet calcium 2021-11 Yes 650mg Take 650 [facility] rs carbonate 0-25 mg by ity of 650 mg 09:32: mouth [place] calcium 41 daily. Medical (1,625 mg) Branch tablet calcium 2021-11 Yes 650mg Take 650 [facility] rs carbonate 0-25 mg by ity of 650 mg 09:32: mouth [place] calcium 41 daily. Medical (1,625 mg) Branch tablet calcium 2021-11 Yes 650mg Take 650 [facility] rs carbonate 0-25 mg by ity of 650 mg 09:32: mouth [place] calcium 41 daily. Medical (1,625 mg) Branch tablet calcium 2021-11 Yes 650mg Take 650 [facility] rs carbonate 0-25 mg by ity of 650 mg 09:32: mouth [place] calcium 41 daily. Medical (1,625 mg) Branch tablet calcium 2021-11 Yes 650mg Take 650 Un[facility] rs carbonate 0-25 mg by ity of 650 mg 09:32: mouth [place] calcium 41 daily. Medical (1,625 mg) Branch tablet calcium 2021-11 Yes 650mg Take 650 [facility] rs carbonate 0-25 mg by ity of 650 mg 09:32: mouth [place] calcium 41 daily. Medical (1,625 mg) Branch tablet calcium 2021-11 Yes 650mg Take 650 [facility] rs carbonate 0-25 mg by ity of 650 mg 09:32: mouth [place] calcium 41 daily. Medical (1,625 mg) Branch tablet calcium 2021-11 Yes 650mg Take 650 [facility] rs carbonate 0-25 mg by ity of 650 mg 09:32: mouth [place] calcium 41 daily. Medical (1,625 mg) Branch tablet calcium 2021-11 Yes 650mg Take 650 [facility] rs carbonate 0-25 mg by ity of 650 mg 09:32: mouth [place] calcium 41 daily. Medical (1,625 mg) Branch tablet calcium 2021-11 Yes 650mg Take 650 Un[facility] rs carbonate 0-25 mg by ity of 650 mg 09:32: mouth [place] calcium 41 daily. Medical (1,625 mg) Branch tablet calcium 2021-11 Yes 650mg Take 650 Un[facility] rs carbonate 0-25 mg by ity of 650 mg 09:32: mouth [place] calcium 41 daily. Medical (1,625 mg) Branch tablet calcium 2021-11 Yes 650mg Take 650 Un[facility] rs carbonate 0-25 mg by ity of 650 mg 09:32: mouth [place] calcium 41 daily. Medical (1,625 mg) Branch tablet calcium 2021-11 Yes 650mg Take 650 Un[facility] rs carbonate 0-25 mg by ity of 650 mg 09:32: mouth [place] calcium 41 daily. Medical (1,625 mg) Branch tablet calcium 2021-11 Yes 650mg Take 650 Un[facility] rs carbonate 0-25 mg by ity of 650 mg 09:32: mouth [place] calcium 41 daily. Medical (1,625 mg) Branch tablet calcium 2021-11 Yes 650mg Take 650 Un[facility] rs carbonate 0-25 mg by ity of 650 mg 09:32: mouth [place] calcium 41 daily. Medical (1,625 mg) Branch tablet calcium 2021-11 Yes 650mg Take 650 Un[facility] rs carbonate 0-25 mg by ity of 650 mg 09:32: mouth [place] calcium 41 daily. Medical (1,625 mg) Branch tablet calcium 2021-11 Yes 650mg Take 650 Un[facility] rs carbonate 0-25 mg by ity of 650 mg 09:32: mouth [place] calcium 41 daily. Medical (1,625 mg) Branch tablet calcium 2021-11 Yes 650mg Take 650 [facility] rs carbonate 0-25 mg by ity of 650 mg 09:32: mouth [place] calcium 41 daily. Medical (1,625 mg) Branch tablet calcium 2021-11 Yes 650mg Take 650 [facility] rs carbonate 0-25 mg by ity of 650 mg 09:32: mouth [place] calcium 41 daily. Medical (1,625 mg) Branch tablet calcium 2021-11 Yes 650mg Take 650 Un[facility] rs carbonate 0-25 mg by ity of 650 mg 09:32: mouth [place] calcium 41 daily. Medical (1,625 mg) Branch tablet calcium 2021-11 Yes 650mg Take 650 Un[facility] rs carbonate 0-25 mg by ity of 650 mg 09:32: mouth [place] calcium 41 daily. Medical (1,625 mg) Branch tablet calcium 2021-11 Yes 650mg Take 650 Un[facility] rs carbonate 0-25 mg by ity of 650 mg 09:32: mouth [place] calcium 41 daily. Medical (1,625 mg) Branch tablet calcium 2021-11 Yes 650mg Take 650 Unive rs carbonate 0-25 mg by ity of 650 mg 09:32: mouth [place] calcium 41 daily. Medical (1,625 mg) Branch tablet calcium 2021-11 Yes 650mg Take 650 Un[facility] rs carbonate 0-25 mg by ity of 650 mg 09:32: mouth [place] calcium 41 daily. Medical (1,625 mg) Branch tablet calcium 2021-11 Yes 650mg Take 650 Un[facility] rs carbonate 0-25 mg by ity of 650 mg 09:32: mouth [place] calcium 41 daily. Medical (1,625 mg) Branch tablet calcium 2021-11 Yes 650mg Take 650 Un[facility] rs carbonate 0-25 mg by ity of 650 mg 09:32: mouth [place] calcium 41 daily. Medical (1,625 mg) Branch tablet calcium 2021-11 Yes 650mg Take 650 Un[facility] rs carbonate 0-25 mg by ity of 650 mg 09:32: mouth [place] calcium 41 daily. Medical (1,625 mg) Branch tablet calcium 2021-11 Yes 650mg Take 650 Un[facility] rs carbonate 0-25 mg by ity of 650 mg 09:32: mouth [place] calcium 41 daily. Medical (1,625 mg) Branch tablet calcium 2021-11 Yes 650mg Take 650 Un[facility] rs carbonate 0-25 mg by ity of 650 mg 09:32: mouth [place] calcium 41 daily. Medical (1,625 mg) Branch tablet calcium 2021-11 Yes 650mg Take 650 Un[facility] rs carbonate 0-25 mg by ity of 650 mg 09:32: mouth [place] calcium 41 daily. Medical (1,625 mg) Branch tablet albuterol 2021-11 Yes [id number] 2{puff} Inhale 2 [facility] 90 0-25 Puffs ity of mcg/actuati 00:00: every 6 [place] as on inhaler 00 (six) Medical hours as Branch needed for Wheezing or Shortness of Breath. albuterol 2021-11 Yes [id number] 2{puff} Inhale 2 [facility] 90 0-25 Puffs ity of mcg/actuati 00:00: every 6 [place] on inhaler 00 (six) Medical hours as Branch needed for Wheezing or Shortness of Breath. albuterol 2021-11 Yes [id number] 2{puff} Inhale 2 [facility] 90 0-25 Puffs ity of mcg/actuati 00:00: every 6 [place] on inhaler 00 (six) Medical hours as Branch needed for Wheezing or Shortness of Breath. albuterol 2021-11 Yes [id number] 2{puff} Inhale 2 [facility] 90 0-25 Puffs ity of mcg/actuati 00:00: every 6 [place] on inhaler 00 (six) Medical hours as Branch needed for Wheezing or Shortness of Breath. albuterol 2021-11 Yes [id number] 2{puff} Inhale 2 [facility] 90 0-25 Puffs ity of mcg/actuati 00:00: every 6 [place] on inhaler 00 (six) Medical hours as Branch needed for Wheezing or Shortness of Breath. albuterol 2021-11 Yes [id number] 2{puff} Inhale 2 [facility] 90 0-25 Puffs ity of mcg/actuati 00:00: every 6 [place] on inhaler 00 (six) Medical hours as Branch needed for Wheezing or Shortness of Breath. albuterol 2021-11 Yes [id number] 2{puff} Inhale 2 [facility] 90 0-25 Puffs ity of mcg/actuati 00:00: every 6 [place] on inhaler 00 (six) Medical hours as Branch needed for Wheezing or Shortness of Breath. albuterol 2021-11 Yes [id number] 2{puff} Inhale 2 [facility] 90 0-25 Puffs ity of mcg/actuati 00:00: every 6 [place] on inhaler 00 (six) Medical hours as Branch needed for Wheezing or Shortness of Breath. albuterol 2021-11 Yes [id number] 2{puff} Inhale 2 [facility] 90 0-25 Puffs ity of mcg/actuati 00:00: every 6 [place] on inhaler 00 (six) Medical hours as Branch needed for Wheezing or Shortness of Breath. albuterol 2021-11 Yes [id number] 2{puff} Inhale 2 [facility] 90 0-25 Puffs ity of mcg/actuati 00:00: every 6 [place] on inhaler 00 (six) Medical hours as Branch needed for Wheezing or Shortness of Breath. albuterol 2021-11 Yes [id number] 2{puff} Inhale 2 [facility] 90 0-25 Puffs ity of mcg/actuati 00:00: every 6 [place] on inhaler 00 (six) Medical hours as Branch needed for Wheezing or Shortness of Breath. albuterol 2021-11 Yes [id number] 2{puff} Inhale 2 [facility] 90 0-25 Puffs ity of mcg/actuati 00:00: every 6 [place] on inhaler 00 (six) Medical hours as Branch needed for Wheezing or Shortness of Breath. albuterol 2021-11 Yes [id number] 2{puff} Inhale 2 [facility] 90 0-25 Puffs ity of mcg/actuati 00:00: every 6 [place] as on inhaler 00 (six) Medical hours as Branch needed for Wheezing or Shortness of Breath. albuterol 2021-11 Yes [id number] 2{puff} Inhale 2 [facility] 90 0-25 Puffs ity of mcg/actuati 00:00: every 6 [place] on inhaler 00 (six) Medical hours as Branch needed for Wheezing or Shortness of Breath. albuterol 2021-11 Yes [id number] 2{puff} Inhale 2 [facility] 90 0-25 Puffs ity of mcg/actuati 00:00: every 6 [place] on inhaler 00 (six) Medical hours as Branch needed for Wheezing or Shortness of Breath. albuterol 2021-11 Yes [id number] 2{puff} Inhale 2 [facility] 90 0-25 Puffs ity of mcg/actuati 00:00: every 6 [place] on inhaler 00 (six) Medical hours as Branch needed for Wheezing or Shortness of Breath. albuterol 2021-11 Yes [id number] 2{puff} Inhale 2 [facility] 90 0-25 Puffs ity of mcg/actuati 00:00: every 6 [place] on inhaler 00 (six) Medical hours as Branch needed for Wheezing or Shortness of Breath. albuterol 2021-11 Yes [id number] 2{puff} Inhale 2 [facility] 90 0-25 Puffs ity of mcg/actuati 00:00: every 6 [place] as on inhaler 00 (six) Medical hours as Branch needed for Wheezing or Shortness of Breath. albuterol 2021-11 Yes [id number] 2{puff} Inhale 2 [facility] 90 0-25 Puffs ity of mcg/actuati 00:00: every 6 [place] as on inhaler 00 (six) Medical hours as Branch needed for Wheezing or Shortness of Breath. albuterol 2021-11 Yes [id number] 2{puff} Inhale 2 [facility] 90 0-25 Puffs ity of mcg/actuati 00:00: every 6 [place] as on inhaler 00 (six) Medical hours as Branch needed for Wheezing or Shortness of Breath. albuterol 2021-11 Yes [id number] 2{puff} Inhale 2 [facility] 90 0-25 Puffs ity of mcg/actuati 00:00: every 6 [place] as on inhaler 00 (six) Medical hours as Branch needed for Wheezing or Shortness of Breath. albuterol 2021-11 Yes [id number] 2{puff} Inhale 2 [facility] 90 0-25 Puffs ity of mcg/actuati 00:00: every 6 [place] as on inhaler 00 (six) Medical hours as Branch needed for Wheezing or Shortness of Breath. albuterol 2021-11 Yes [id number] 2{puff} Inhale 2 [facility] 90 0-25 Puffs ity of mcg/actuati 00:00: every 6 [place] as on inhaler 00 (six) Medical hours as Branch needed for Wheezing or Shortness of Breath. albuterol 2021-11 Yes [id number] 2{puff} Inhale 2 [facility] 90 0-25 Puffs ity of mcg/actuati 00:00: every 6 [place] as on inhaler 00 (six) Medical hours as Branch needed for Wheezing or Shortness of Breath. albuterol 2021-11 Yes [id number] 2{puff} Inhale 2 [facility] 90 0-25 Puffs ity of mcg/actuati 00:00: every 6 [place] as on inhaler 00 (six) Medical hours as Branch needed for Wheezing or Shortness of Breath. albuterol 2021-11 Yes [id number] 2{puff} Inhale 2 [facility] 90 0-25 Puffs ity of mcg/actuati 00:00: every 6 [place] as on inhaler 00 (six) Medical hours as Branch needed for Wheezing or Shortness of Breath. albuterol 2021-11 Yes [id number] 2{puff} Inhale 2 [facility] 90 0-25 Puffs ity of mcg/actuati 00:00: every 6 [place] as on inhaler 00 (six) Medical hours as Branch needed for Wheezing or Shortness of Breath. albuterol 2021-11 Yes [id number] 2{puff} Inhale 2 [facility] 90 0-25 Puffs ity of mcg/actuati 00:00: every 6 [place] as on inhaler 00 (six) Medical hours as Branch needed for Wheezing or Shortness of Breath. albuterol 2021-11 Yes [id number] 2{puff} Inhale 2 [facility] 90 0-25 Puffs ity of mcg/actuati 00:00: every 6 [place] as on inhaler 00 (six) Medical hours as Branch needed for Wheezing or Shortness of Breath. albuterol 2021-11 Yes [id number] 2{puff} Inhale 2 [facility] 90 0-25 Puffs ity of mcg/actuati 00:00: every 6 [place] as on inhaler 00 (six) Medical hours as Branch needed for Wheezing or Shortness of Breath. albuterol 2021-11 Yes [id number] 2{puff} Inhale 2 [facility] 90 0-25 Puffs ity of mcg/actuati 00:00: every 6 [place] as on inhaler 00 (six) Medical hours as Branch needed for Wheezing or Shortness of Breath. albuterol 2021-11 Yes [id number] 2{puff} Inhale 2 [facility] 90 0-25 Puffs ity of mcg/actuati 00:00: every 6 [place] as on inhaler 00 (six) Medical hours as Branch needed for Wheezing or Shortness of Breath. albuterol 2021-11 Yes [id number] 2{puff} Inhale 2 [facility] 90 0-25 Puffs ity of mcg/actuati 00:00: every 6 [place] as on inhaler 00 (six) Medical hours as Branch needed for Wheezing or Shortness of Breath. albuterol 2021-11 Yes [id number] 2{puff} Inhale 2 [facility] 90 0-25 Puffs ity of mcg/actuati 00:00: every 6 [place] as on inhaler 00 (six) Medical hours as Branch needed for Wheezing or Shortness of Breath. albuterol 2021-11 Yes [id number] 2{puff} Inhale 2 [facility] 90 0-25 Puffs ity of mcg/actuati 00:00: every 6 [place] as on inhaler 00 (six) Medical hours as Branch needed for Wheezing or Shortness of Breath. albuterol 2021-11 Yes [id number] 2{puff} Inhale 2 [facility] 90 0-25 Puffs ity of mcg/actuati 00:00: every 6 [place] as on inhaler 00 (six) Medical hours as Branch needed for Wheezing or Shortness of Breath. albuterol 2021-11 Yes [id number] 2{puff} Inhale 2 [facility] 90 0-25 Puffs ity of mcg/actuati 00:00: every 6 [place] as on inhaler 00 (six) Medical hours as Branch needed for Wheezing or Shortness of Breath. albuterol 2021-11 Yes [id number] 2{puff} Inhale 2 [facility] 90 0-25 Puffs ity of mcg/actuati 00:00: every 6 [place] as on inhaler 00 (six) Medical hours as Branch needed for Wheezing or Shortness of Breath. albuterol 2021-11 Yes [id number] 2{puff} Inhale 2 [facility] 90 0-25 Puffs ity of mcg/actuati 00:00: every 6 [place] as on inhaler 00 (six) Medical hours as Branch needed for Wheezing or Shortness of Breath. albuterol 2021-11 Yes [id number] 2{puff} Inhale 2 [facility] 90 0-25 Puffs ity of mcg/actuati 00:00: every 6 [place] as on inhaler 00 (six) Medical hours as Branch needed for Wheezing or Shortness of Breath. albuterol 2021-11 Yes [id number] 2{puff} Inhale 2 [facility] 90 0-25 Puffs ity of mcg/actuati 00:00: every 6 [place] [facility] on inhaler 00 (six) Medical hours as Branch needed for Wheezing or Shortness of Breath. albuterol 2021-11 Yes [id number] 2{puff} Inhale 2 [facility] 90 0-25 Puffs ity of mcg/actuati 00:00: every 6 [place] as on inhaler 00 (six) Medical hours as Branch needed for Wheezing or Shortness of Breath. albuterol 2021-11 Yes [id number] 2{puff} Inhale 2 [facility] 90 0-25 Puffs ity of mcg/actuati 00:00: every 6 [place] as on inhaler 00 (six) Medical hours as Branch needed for Wheezing or Shortness of Breath. albuterol 2021-11 Yes [id number] 2{puff} Inhale 2 [facility] 90 0-25 Puffs ity of mcg/actuati 00:00: every 6 [place] as on inhaler 00 (six) Medical hours as Branch needed for Wheezing or Shortness of Breath. albuterol 2021-11 Yes [id number] 2{puff} Inhale 2 [facility] 90 0-25 Puffs ity of mcg/actuati 00:00: every 6 [place] as on inhaler 00 (six) Medical hours as Branch needed for Wheezing or Shortness of Breath. albuterol 2021-11 Yes [id number] 2{puff} Inhale 2 [facility] 90 0-25 Puffs ity of mcg/actuati 00:00: every 6 [place] as on inhaler 00 (six) Medical hours as Branch needed for Wheezing or Shortness of Breath. albuterol 2021-11 Yes [id number] 2{puff} Inhale 2 [facility] 90 0-25 Puffs ity of mcg/actuati 00:00: every 6 [place] as on inhaler 00 (six) Medical hours as Branch needed for Wheezing or Shortness of Breath. albuterol 2021-11 Yes [id number] 2{puff} Inhale 2 [facility] 90 0-25 Puffs ity of mcg/actuati 00:00: every 6 [place] as on inhaler 00 (six) Medical hours as Branch needed for Wheezing or Shortness of Breath. albuterol 2021-11 Yes [id number] 2{puff} Inhale 2 [facility] 90 0-25 Puffs ity of mcg/actuati 00:00: every 6 [place] as on inhaler 00 (six) Medical hours as Branch needed for Wheezing or Shortness of Breath. albuterol 2021-11 Yes [id number] 2{puff} Inhale 2 [facility] 90 0-25 Puffs ity of mcg/actuati 00:00: every 6 [place] as on inhaler 00 (six) Medical hours as Branch needed for Wheezing or Shortness of Breath. albuterol 2021-11 Yes [id number] 2{puff} Inhale 2 [facility] 90 0-25 Puffs ity of mcg/actuati 00:00: every 6 [place] as on inhaler 00 (six) Medical hours as Branch needed for Wheezing or Shortness of Breath. albuterol 2021-11 Yes [id number] 2{puff} Inhale 2 [facility] 90 0-25 Puffs ity of mcg/actuati 00:00: every 6 [place] as on inhaler 00 (six) Medical hours as Branch needed for Wheezing or Shortness of Breath. albuterol 2021-11 Yes [id number] 2{puff} Inhale 2 [facility] 90 0-25 Puffs ity of mcg/actuati 00:00: every 6 [place] as on inhaler 00 (six) Medical hours as Branch needed for Wheezing or Shortness of Breath. albuterol 2021-11 Yes [id number] 2{puff} Inhale 2 [facility] 90 0-25 Puffs ity of mcg/actuati 00:00: every 6 [place] as on inhaler 00 (six) Medical hours as Branch needed for Wheezing or Shortness of Breath. albuterol 2021-11 Yes [id number] 2{puff} Inhale 2 [facility] 90 0-25 Puffs ity of mcg/actuati 00:00: every 6 [place] as on inhaler 00 (six) Medical hours as Branch needed for Wheezing or Shortness of Breath. albuterol 2021-11 Yes [id number] 2{puff} Inhale 2 [facility] 90 0-25 Puffs ity of mcg/actuati 00:00: every 6 [place] as on inhaler 00 (six) Medical hours as Branch needed for Wheezing or Shortness of Breath. albuterol 2021-11 Yes [id number] 2{puff} Inhale 2 [facility] 90 0-25 Puffs ity of mcg/actuati 00:00: every 6 [place] as on inhaler 00 (six) Medical hours as Branch needed for Wheezing or Shortness of Breath. albuterol 2021-11 Yes [id number] 2{puff} Inhale 2 [facility] 90 0-25 Puffs ity of mcg/actuati 00:00: every 6 [place] as on inhaler 00 (six) Medical hours as Branch needed for Wheezing or Shortness of Breath. albuterol 2021-11 Yes [id number] 2{puff} Inhale 2 [facility] 90 0-25 Puffs ity of mcg/actuati 00:00: every 6 [place] as on inhaler 00 (six) Medical hours as Branch needed for Wheezing or Shortness of Breath. albuterol 2021-11 Yes [id number] 2{puff} Inhale 2 [facility] 90 0-25 Puffs ity of mcg/actuati 00:00: every 6 [place] as on inhaler 00 (six) Medical hours as Branch needed for Wheezing or Shortness of Breath. albuterol 2021-11 Yes [id number] 2{puff} Inhale 2 [facility] 90 0-25 Puffs ity of mcg/actuati 00:00: every 6 [place] as on inhaler 00 (six) Medical hours as Branch needed for Wheezing or Shortness of Breath. albuterol 2021-11 Yes [id number] 2{puff} Inhale 2 [facility] 90 0-25 Puffs ity of mcg/actuati 00:00: every 6 [place] as on inhaler 00 (six) Medical hours as Branch needed for Wheezing or Shortness of Breath. albuterol 2021-11 Yes [id number] 2{puff} Inhale 2 [facility] 90 0-25 Puffs ity of mcg/actuati 00:00: every 6 [place] as on inhaler 00 (six) Medical hours as Branch needed for Wheezing or Shortness of Breath. albuterol 2021-11 Yes [id number] 2{puff} Inhale 2 [facility] 90 0-25 Puffs ity of mcg/actuati 00:00: every 6 [place] as on inhaler 00 (six) Medical hours as Branch needed for Wheezing or Shortness of Breath. albuterol 2021-11 Yes [id number] 2{puff} Inhale 2 [facility] 90 0-25 Puffs ity of mcg/actuati 00:00: every 6 [place] as on inhaler 00 (six) Medical hours as Branch needed for Wheezing or Shortness of Breath. albuterol 2021-11 Yes [id number] 2{puff} Inhale 2 [facility] 90 0-25 Puffs ity of mcg/actuati 00:00: every 6 [place] as on inhaler 00 (six) Medical hours as Branch needed for Wheezing or Shortness of Breath. albuterol 2021-11 Yes [id number] 2{puff} Inhale 2 [facility] 90 0-25 Puffs ity of mcg/actuati 00:00: every 6 [place] as on inhaler 00 (six) Medical hours as Branch needed for Wheezing or Shortness of Breath. albuterol 2021-11 Yes [id number] 2{puff} Inhale 2 [facility] 90 0-25 Puffs ity of mcg/actuati 00:00: every 6 [place] as on inhaler 00 (six) Medical hours as Branch needed for Wheezing or Shortness of Breath. albuterol 2021-11 Yes [id number] 2{puff} Inhale 2 [facility] 90 0-25 Puffs ity of mcg/actuati 00:00: every 6 [place] as on inhaler 00 (six) Medical hours as Branch needed for Wheezing or Shortness of Breath. albuterol 2021-11 Yes [id number] 2{puff} Inhale 2 [facility] 90 0-25 Puffs ity of mcg/actuati 00:00: every 6 [place] as on inhaler 00 (six) Medical hours as Branch needed for Wheezing or Shortness of Breath. albuterol 2021-11 Yes [id number] 2{puff} Inhale 2 [facility] 90 0-25 Puffs ity of mcg/actuati 00:00: every 6 [place] as on inhaler 00 (six) Medical hours as Branch needed for Wheezing or Shortness of Breath. albuterol 2021-11 Yes [id number] 2{puff} Inhale 2 [facility] 90 0-25 Puffs ity of mcg/actuati 00:00: every 6 [place] as on inhaler 00 (six) Medical hours as Branch needed for Wheezing or Shortness of Breath. albuterol 2021-11 Yes [id number] 2{puff} Inhale 2 [facility] 90 0-25 Puffs ity of mcg/actuati 00:00: every 6 [place] as on inhaler 00 (six) Medical hours as Branch needed for Wheezing or Shortness of Breath. albuterol 2021-11 Yes [id number] 2{puff} Inhale 2 [facility] 90 0-25 Puffs ity of mcg/actuati 00:00: every 6 [place] as on inhaler 00 (six) Medical hours as Branch needed for Wheezing or Shortness of Breath. albuterol 2021-11 Yes [id number] 2{puff} Inhale 2 [facility] 90 0-25 Puffs ity of mcg/actuati 00:00: every 6 [place] as on inhaler 00 (six) Medical hours as Branch needed for Wheezing or Shortness of Breath. albuterol 2021-11 Yes [id number] 2{puff} Inhale 2 [facility] 90 0-25 Puffs ity of mcg/actuati 00:00: every 6 [place] as on inhaler 00 (six) Medical hours as Branch needed for Wheezing or Shortness of Breath. albuterol 2021-11 Yes [id number] 2{puff} Inhale 2 [facility] 90 0-25 Puffs ity of mcg/actuati 00:00: every 6 [place] as on inhaler 00 (six) Medical hours as Branch needed for Wheezing or Shortness of Breath. albuterol 2021-11 Yes [id number] 2{puff} Inhale 2 [facility] 90 0-25 Puffs ity of mcg/actuati 00:00: every 6 [place] as on inhaler 00 (six) Medical hours as Branch needed for Wheezing or Shortness of Breath. albuterol 2021-11 Yes [id number] 2{puff} Inhale 2 [facility] 90 0-25 Puffs ity of mcg/actuati 00:00: every 6 [place] as on inhaler 00 (six) Medical hours as Branch needed for Wheezing or Shortness of Breath. albuterol 2021-11 Yes [id number] 2{puff} Inhale 2 [facility] 90 0-25 Puffs ity of mcg/actuati 00:00: every 6 [place] as on inhaler 00 (six) Medical hours as Branch needed for Wheezing or Shortness of Breath. albuterol 2021-11 Yes [id number] 2{puff} Inhale 2 [facility] 90 0-25 Puffs ity of mcg/actuati 00:00: every 6 [place] as on inhaler 00 (six) Medical hours as Branch needed for Wheezing or Shortness of Breath. albuterol 2021-11 Yes [id number] 2{puff} Inhale 2 [facility] 90 0-25 Puffs ity of mcg/actuati 00:00: every 6 [place] as on inhaler 00 (six) Medical hours as Branch needed for Wheezing or Shortness of Breath. albuterol 2021-11 Yes [id number] 2{puff} Inhale 2 [facility] 90 0-25 Puffs ity of mcg/actuati 00:00: every 6 [place] as on inhaler 00 (six) Medical hours as Branch needed for Wheezing or Shortness of Breath. albuterol 2021-11 Yes [id number] 2{puff} Inhale 2 [facility] 90 0-25 Puffs ity of mcg/actuati 00:00: every 6 [place] as on inhaler 00 (six) Medical hours as Branch needed for Wheezing or Shortness of Breath. albuterol 2021-11 Yes [id number] 2{puff} Inhale 2 [facility] 90 0-25 Puffs ity of mcg/actuati 00:00: every 6 [place] as on inhaler 00 (six) Medical hours as Branch needed for Wheezing or Shortness of Breath. albuterol 2021-11 Yes [id number] 2{puff} Inhale 2 [facility] 90 0-25 Puffs ity of mcg/actuati 00:00: every 6 [place] as on inhaler 00 (six) Medical hours as Branch needed for Wheezing or Shortness of Breath. albuterol 2021-11 Yes [id number] 2{puff} Inhale 2 [facility] 90 0-25 Puffs ity of mcg/actuati 00:00: every 6 [place] as on inhaler 00 (six) Medical hours as Branch needed for Wheezing or Shortness of Breath. albuterol 2021-11 Yes [id number] 2{puff} Inhale 2 [facility] 90 0-25 Puffs ity of mcg/actuati 00:00: every 6 [place] as on inhaler 00 (six) Medical hours as Branch needed for Wheezing or Shortness of Breath. albuterol 2021-11 Yes [id number] 2{puff} Inhale 2 [facility] 90 0-25 Puffs ity of mcg/actuati 00:00: every 6 [place] as on inhaler 00 (six) Medical hours as Branch needed for Wheezing or Shortness of Breath. albuterol 2021-11 Yes [id number] 2{puff} Inhale 2 [facility] 90 0-25 Puffs ity of mcg/actuati 00:00: every 6 [place] as on inhaler 00 (six) Medical hours as Branch needed for Wheezing or Shortness of Breath. albuterol 2021-11 Yes [id number] 2{puff} Inhale 2 [facility] 90 0-25 Puffs ity of mcg/actuati 00:00: every 6 [place] as on inhaler 00 (six) Medical hours as Branch needed for Wheezing or Shortness of Breath. albuterol 2021-11 Yes [id number] 2{puff} Inhale 2 [facility] 90 0-25 Puffs ity of mcg/actuati 00:00: every 6 [place] as on inhaler 00 (six) Medical hours as Branch needed for Wheezing or Shortness of Breath. albuterol 2021-11 Yes [id number] 2{puff} Inhale 2 [facility] 90 0-25 Puffs ity of mcg/actuati 00:00: every 6 [place] as on inhaler 00 (six) Medical hours as Branch needed for Wheezing or Shortness of Breath. albuterol 2021-11 Yes [id number] 2{puff} Inhale 2 [facility] 90 0-25 Puffs ity of mcg/actuati 00:00: every 6 [place] as on inhaler 00 (six) Medical hours as Branch needed for Wheezing or Shortness of Breath. albuterol 2021-11 Yes [id number] 2{puff} Inhale 2 [facility] 90 0-25 Puffs ity of mcg/actuati 00:00: every 6 [place] as on inhaler 00 (six) Medical hours as Branch needed for Wheezing or Shortness of Breath. albuterol 2021-11 Yes [id number] 2{puff} Inhale 2 [facility] 90 0-25 Puffs ity of mcg/actuati 00:00: every 6 [place] as on inhaler 00 (six) Medical hours as Branch needed for Wheezing or Shortness of Breath. albuterol 2021-11 Yes [id number] 2{puff} Inhale 2 [facility] 90 0-25 Puffs ity of mcg/actuati 00:00: every 6 [place] as on inhaler 00 (six) Medical hours as Branch needed for Wheezing or Shortness of Breath. albuterol 2021-11 Yes [id number] 2{puff} Inhale 2 [facility] 90 0-25 Puffs ity of mcg/actuati 00:00: every 6 [place] as on inhaler 00 (six) Medical hours as Branch needed for Wheezing or Shortness of Breath. albuterol 2021-11 Yes [id number] 2{puff} Inhale 2 [facility] 90 0-25 Puffs ity of mcg/actuati 00:00: every 6 [place] as on inhaler 00 (six) Medical hours as Branch needed for Wheezing or Shortness of Breath. albuterol 2021-11 Yes [id number] 2{puff} Inhale 2 [facility] 90 0-25 Puffs ity of mcg/actuati 00:00: every 6 [place] [facility] on inhaler 00 (six) Medical hours as Branch needed for Wheezing or Shortness of Breath. albuterol 2021-11 Yes [id number] 2{puff} Inhale 2 [facility] 90 0-25 Puffs ity of mcg/actuati 00:00: every 6 [place] as on inhaler 00 (six) Medical hours as Branch needed for Wheezing or Shortness of Breath. albuterol 2021-11 Yes [id number] 2{puff} Inhale 2 [facility] 90 0-25 Puffs ity of mcg/actuati 00:00: every 6 [place] [facility] on inhaler 00 (six) Medical hours as Branch needed for Wheezing or Shortness of Breath. albuterol 2021-11 Yes [id number] 2{puff} Inhale 2 [facility] 90 0-25 Puffs ity of mcg/actuati 00:00: every 6 [place] [facility] on inhaler 00 (six) Medical hours as Branch needed for Wheezing or Shortness of Breath. albuterol 2021-11 Yes [id number] 2{puff} Inhale 2 [facility] 90 0-25 Puffs ity of mcg/actuati 00:00: every 6 [place] [facility] on inhaler 00 (six) Medical hours as Branch needed for Wheezing or Shortness of Breath. albuterol 2021-11 Yes [id number] 2{puff} Inhale 2 [facility] 90 0-25 Puffs ity of mcg/actuati 00:00: every 6 [place] [facility] on inhaler 00 (six) Medical hours as Branch needed for Wheezing or Shortness of Breath. albuterol 2021-11 Yes [id number] 2{puff} Inhale 2 [facility] 90 0-25 Puffs ity of mcg/actuati 00:00: every 6 [place] [facility] on inhaler 00 (six) Medical hours as Branch needed for Wheezing or Shortness of Breath. albuterol 2021-11 Yes [id number] 2{puff} Inhale 2 [facility] 90 0-25 Puffs ity of mcg/actuati 00:00: every 6 [place] [facility] on inhaler 00 (six) Medical hours as Branch needed for Wheezing or Shortness of Breath. albuterol 2021-11 Yes [id number] 2{puff} Inhale 2 [facility] 90 0-25 Puffs ity of mcg/actuati 00:00: every 6 [place] [facility] on inhaler 00 (six) Medical hours as Branch needed for Wheezing or Shortness of Breath. albuterol 2021-11 Yes [id number] 2{puff} Inhale 2 [facility] 90 0-25 Puffs ity of mcg/actuati 00:00: every 6 [place] [facility] on inhaler 00 (six) Medical hours as Branch needed for Wheezing or Shortness of Breath. albuterol 2021-11 Yes [id number] 2{puff} Inhale 2 [facility] 90 0-25 Puffs ity of mcg/actuati 00:00: every 6 [place] as on inhaler 00 (six) Medical hours as Branch needed for Wheezing or Shortness of Breath. albuterol 2021-11 Yes [id number] 2{puff} Inhale 2 [facility] 90 0-25 Puffs ity of mcg/actuati 00:00: every 6 [place] as on inhaler 00 (six) Medical hours as Branch needed for Wheezing or Shortness of Breath. albuterol 2021-11 Yes [id number] 2{puff} Inhale 2 [facility] 90 0-25 Puffs ity of mcg/actuati 00:00: every 6 [place] as on inhaler 00 (six) Medical hours as Branch needed for Wheezing or Shortness of Breath. albuterol 2021-11 Yes [id number] 2{puff} Inhale 2 [facility] 90 0-25 Puffs ity of mcg/actuati 00:00: every 6 [facility] as on inhaler 00 (six) Medical hours as Branch needed for Wheezing or Shortness of Breath. albuterol 2021-11 Yes [id number] 2{puff} Inhale 2 [facility] 90 0-25 Puffs ity of mcg/actuati 00:00: every 6 [facility] as on inhaler 00 (six) Medical hours as Branch needed for Wheezing or Shortness of Breath. albuterol 2021-11 Yes [id number] 2{puff} Inhale 2 [facility] 90 0-25 Puffs ity of mcg/actuati 00:00: every 6 [facility] as on inhaler 00 (six) Medical hours as Branch needed for Wheezing or Shortness of Breath. albuterol 2021-11 Yes [id number] 2{puff} Inhale 2 [facility] 90 0-25 Puffs ity of mcg/actuati 00:00: every 6 [facility] as on inhaler 00 (six) Medical hours as Branch needed for Wheezing or Shortness of Breath. albuterol 2021-11 Yes [id number] 2{puff} Inhale 2 [facility] 90 0-25 Puffs ity of mcg/actuati 00:00: every 6 [facility] as on inhaler 00 (six) Medical hours as Branch needed for Wheezing or Shortness of Breath. albuterol 2021-11 Yes [id number] 2{puff} Inhale 2 [facility] 90 0-25 Puffs ity of mcg/actuati 00:00: every 6 [facility] as on inhaler 00 (six) Medical hours as Branch needed for Wheezing or Shortness of Breath. albuterol 2021-11 Yes [id number] 2{puff} Inhale 2 [facility] 90 0-25 Puffs ity of mcg/actuati 00:00: every 6 [facility] as on inhaler 00 (six) Medical hours as Branch needed for Wheezing or Shortness of Breath. albuterol 2021-11 Yes [id number] 2{puff} Inhale 2 [facility] 90 0-25 Puffs ity of mcg/actuati 00:00: every 6 [facility] as on inhaler 00 (six) Medical hours as Branch needed for Wheezing or Shortness of Breath. albuterol 2021-11 Yes [id number] 2{puff} Inhale 2 [facility] 90 0-25 Puffs ity of mcg/actuati 00:00: every 6 [facility] as on inhaler 00 (six) Medical hours as Branch needed for Wheezing or Shortness of Breath. albuterol 2021-11 Yes [id number] 2{puff} Inhale 2 [facility] 90 0-25 Puffs ity of mcg/actuati 00:00: every 6 [facility] as on inhaler 00 (six) Medical hours as Branch needed for Wheezing or Shortness of Breath. albuterol 2021-11 Yes [id number] 2{puff} Inhale 2 [facility] 90 0-25 Puffs ity of mcg/actuati 00:00: every 6 [facility] on inhaler 00 (six) Medical hours as Branch needed for Wheezing or Shortness of Breath. albuterol 2021-11 Yes [id number] 2{puff} Inhale 2 [facility] 90 0-25 Puffs ity of mcg/actuati 00:00: every 6 [facility] as on inhaler 00 (six) Medical hours as Branch needed for Wheezing or Shortness of Breath. albuterol 2021-11 Yes [id number] 2{puff} Inhale 2 [facility] 90 0-25 Puffs ity of mcg/actuati 00:00: every 6 [facility] as on inhaler 00 (six) Medical hours as Branch needed for Wheezing or Shortness of Breath. albuterol 2021-11 Yes [id number] 2{puff} Inhale 2 [facility] 90 0-25 Puffs ity of mcg/actuati 00:00: every 6 [facility] as on inhaler 00 (six) Medical hours as Branch needed for Wheezing or Shortness of Breath. albuterol 2021-11 Yes [id number] 2{puff} Inhale 2 [facility] 90 0-25 Puffs ity of mcg/actuati 00:00: every 6 [facility] as on inhaler 00 (six) Medical hours as Branch needed for Wheezing or Shortness of Breath. albuterol 2021-11 Yes [id number] 2{puff} Inhale 2 [facility] 90 0-25 Puffs ity of mcg/actuati 00:00: every 6 [facility] as on inhaler 00 (six) Medical hours as Branch needed for Wheezing or Shortness of Breath. albuterol 2021-11 Yes [id number] 2{puff} Inhale 2 [facility] 90 0-25 Puffs ity of mcg/actuati 00:00: every 6 [facility] as on inhaler 00 (six) Medical hours as Branch needed for Wheezing or Shortness of Breath. albuterol 2021-11 Yes [id number] 2{puff} Inhale 2 [facility] 90 0-25 Puffs ity of mcg/actuati 00:00: every 6 [facility] as on inhaler 00 (six) Medical hours as Branch needed for Wheezing or Shortness of Breath. albuterol 2021-11 Yes [id number] 2{puff} Inhale 2 [facility] 90 0-25 Puffs ity of mcg/actuati 00:00: every 6 [facility] as on inhaler 00 (six) Medical hours as Branch needed for Wheezing or Shortness of Breath. albuterol 2021-11 Yes [id number] 2{puff} Inhale 2 [facility] 90 0-25 Puffs ity of mcg/actuati 00:00: every 6 [facility] as on inhaler 00 (six) Medical hours as Branch needed for Wheezing or Shortness of Breath. PNV,calcium 2021-11 Yes 1{tbl} Take 1 Un [facility] 72-iron-fol 0-14 tablet by ity of ic acid 00:00: mouth [place] ([facility] 00 every Medical PLUS) 27 mg morning. Bran ch iron- 1 mg tablet PNV,calcium 2021-11 Yes 1{tbl} Take 1 Un [facility] 72-iron-fol 0-14 tablet by ity of ic acid 00:00: mouth [place] ([facility] 00 every Medical PLUS) 27 mg morning. Bran ch iron- 1 mg tablet PNV,calcium 2021-11 Yes 1{tbl} Take 1 Un [facility] 72-iron-fol 0-14 tablet by ity of ic acid 00:00: mouth [place] ([facility] 00 every Medical PLUS) 27 mg morning. Bran ch iron- 1 mg tablet PNV,calcium 2021-11 Yes 1{tbl} Take 1 Un [facility] 72-iron-fol 0-14 tablet by ity of ic acid 00:00: mouth [place] ([facility] 00 every Medical PLUS) 27 mg morning. Bran ch iron- 1 mg tablet PNV,calcium 2021-11 Yes 1{tbl} Take 1 Un [facility] 72-iron-fol 0-14 tablet by ity of ic acid 00:00: mouth [place] ([facility] 00 every Medical PLUS) 27 mg morning. Bran ch iron- 1 mg tablet PNV,calcium 2021-11 Yes 1{tbl} Take 1 Un [facility] 72-iron-fol 0-14 tablet by ity of ic acid 00:00: mouth [place] ([facility] 00 every Medical PLUS) 27 mg morning. Bran ch iron- 1 mg tablet PNV,calcium 2021-11 Yes 1{tbl} Take 1 Un [facility] 72-iron-fol 0-14 tablet by ity of ic acid 00:00: mouth [place] (AB every Medical PLUS) 27 mg morning. [facility] ch iron- 1 mg tablet PNV,calcium 2021-11 Yes 1{tbl} Take 1 Un [facility] 72-iron-fol 0-14 tablet by ity of ic acid 00:00: mouth [place] (AB every Medical PLUS) 27 mg morning. Bran ch iron- 1 mg tablet PNV,calcium 2021-11 Yes 1{tbl} Take 1 Un [facility] 72-iron-fol 0-14 tablet by ity of ic acid 00:00: mouth [place] (AB every Medical PLUS) 27 mg morning. [facility] ch iron- 1 mg tablet PNV,calcium 2021-11 Yes 1{tbl} Take 1 Un [facility] 72-iron-fol 0-14 tablet by ity of ic acid 00:00: mouth [place] (AB every Medical PLUS) 27 mg morning. [facility] ch iron- 1 mg tablet PNV,calcium 2021-11 Yes 1{tbl} Take 1 Un [facility] 72-iron-fol 0-14 tablet by ity of ic acid 00:00: mouth [place] (AB every Medical PLUS) 27 mg morning. [facility] ch iron- 1 mg tablet PNV,calcium 2021-11 Yes 1{tbl} Take 1 Un [facility] 72-iron-fol 0-14 tablet by ity of ic acid 00:00: mouth [place] (AB every Medical PLUS) 27 mg morning. [facility] ch iron- 1 mg tablet PNV,calcium 2021-11 Yes 1{tbl} Take 1 Un [facility] 72-iron-fol 0-14 tablet by ity of ic acid 00:00: mouth [place] (AB every Medical PLUS) 27 mg morning. [facility] ch iron- 1 mg tablet PNV,calcium 2021-11 Yes 1{tbl} Take 1 Un [facility] 72-iron-fol 0-14 tablet by ity of ic acid 00:00: mouth [place] (AB every Medical PLUS) 27 mg morning. [facility] ch iron- 1 mg tablet PNV,calcium 2021-11 Yes 1{tbl} Take 1 Un [facility] 72-iron-fol 0-14 tablet by ity of ic acid 00:00: mouth [place] (AB every Medical PLUS) 27 mg morning. [facility] ch iron- 1 mg tablet PNV,calcium 2021-11 Yes 1{tbl} Take 1 Un [facility] 72-iron-fol 0-14 tablet by ity of ic acid 00:00: mouth [place] (WE[facility] every Medical PLUS) 27 mg morning. [facility] ch iron- 1 mg tablet PNV,calcium 2021-11 Yes 1{tbl} Take 1 Un [facility] 72-iron-fol 0-14 tablet by ity of ic acid 00:00: mouth [place] ([facility] every Medical PLUS) 27 mg morning. Bran ch iron- 1 mg tablet PNV,calcium 2021-11 Yes 1{tbl} Take 1 Un [facility] 72-iron-fol 0-14 tablet by ity of ic acid 00:00: mouth [place] (WE[facility] every Medical PLUS) 27 mg morning. Bran ch iron- 1 mg tablet PNV,calcium 2021-11 Yes 1{tbl} Take 1 Un [facility] 72-iron-fol 0-14 tablet by ity of ic acid 00:00: mouth [place] (WE[facility] every Medical PLUS) 27 mg morning. Bran ch iron- 1 mg tablet PNV,calcium 2021-11 Yes 1{tbl} Take 1 Un [facility] 72-iron-fol 0-14 tablet by ity of ic acid 00:00: mouth [place] (WE[facility] every Medical PLUS) 27 mg morning. Bran ch iron- 1 mg tablet PNV,calcium 2021-11 Yes 1{tbl} Take 1 Un [facility] 72-iron-fol 0-14 tablet by ity of ic acid 00:00: mouth [place] (WE[facility] every Medical PLUS) 27 mg morning. Bran ch iron- 1 mg tablet PNV,calcium 2021-11 Yes 1{tbl} Take 1 Un [facility] 72-iron-fol 0-14 tablet by ity of ic acid 00:00: mouth [place] (WE[facility] 00 every Medical PLUS) 27 mg morning. Bran ch iron- 1 mg tablet PNV,calcium 2021-11 Yes 1{tbl} Take 1 Un [facility] 72-iron-fol 0-14 tablet by ity of ic acid 00:00: mouth [place] ([facility] 00 every Medical PLUS) 27 mg morning. Bran ch iron- 1 mg tablet PNV,calcium 2021-11 Yes 1{tbl} Take 1 Un [facility] 72-iron-fol 0-14 tablet by ity of ic acid 00:00: mouth [place] (AB every Medical PLUS) 27 mg morning. Bran ch iron- 1 mg tablet PNV,calcium 2021-11 Yes 1{tbl} Take 1 Un [facility] 72-iron-fol 0-14 tablet by ity of ic acid 00:00: mouth [place] (AB every Medical PLUS) 27 mg morning. Bran ch iron- 1 mg tablet PNV,calcium 2021-11 Yes 1{tbl} Take 1 Un [facility] 72-iron-fol 0-14 tablet by ity of ic acid 00:00: mouth [place] (AB every Medical PLUS) 27 mg morning. Bran ch iron- 1 mg tablet PNV,calcium 2021-11 Yes 1{tbl} Take 1 Un [facility] 72-iron-fol 0-14 tablet by ity of ic acid 00:00: mouth [place] (AB every Medical PLUS) 27 mg morning. Bran ch iron- 1 mg tablet PNV,calcium 2021-11 Yes 1{tbl} Take 1 Un [facility] 72-iron-fol 0-14 tablet by ity of ic acid 00:00: mouth [place] (AB every Medical PLUS) 27 mg morning. Bran ch iron- 1 mg tablet PNV,calcium 2021-11 Yes 1{tbl} Take 1 Un [facility] 72-iron-fol 0-14 tablet by ity of ic acid 00:00: mouth [place] (AB every Medical PLUS) 27 mg morning. Bran ch iron- 1 mg tablet PNV,calcium 2021-11 Yes 1{tbl} Take 1 Un [facility] 72-iron-fol 0-14 tablet by ity of ic acid 00:00: mouth [place] (AB every Medical PLUS) 27 mg morning. Bran ch iron- 1 mg tablet PNV,calcium 2021-11 Yes 1{tbl} Take 1 Un [facility] 72-iron-fol 0-14 tablet by ity of ic acid 00:00: mouth [place] (AB every Medical PLUS) 27 mg morning. Bran ch iron- 1 mg tablet PNV,calcium 2021-11 Yes 1{tbl} Take 1 Un [facility] 72-iron-fol 0-14 tablet by ity of ic acid 00:00: mouth [place] (AB every Medical PLUS) 27 mg morning. Bran ch iron- 1 mg tablet PNV,calcium 2021-11 Yes 1{tbl} Take 1 Un [facility] 72-iron-fol 0-14 tablet by ity of ic acid 00:00: mouth [place] (WE[facility] every Medical PLUS) 27 mg morning. Bran ch iron- 1 mg tablet PNV,calcium 2021-11 Yes 1{tbl} Take 1 Un [facility] 72-iron-fol 0-14 tablet by ity of ic acid 00:00: mouth [place] (WE[facility] every Medical PLUS) 27 mg morning. Bran ch iron- 1 mg tablet PNV,calcium 2021-11 Yes 1{tbl} Take 1 Un [facility] 72-iron-fol 0-14 tablet by ity of ic acid 00:00: mouth [place] (WE[facility] every Medical PLUS) 27 mg morning. Bran ch iron- 1 mg tablet PNV,calcium 2021-11 Yes 1{tbl} Take 1 Un [facility] 72-iron-fol 0-14 tablet by ity of ic acid 00:00: mouth [place] (WE[facility] every Medical PLUS) 27 mg morning. Bran ch iron- 1 mg tablet PNV,calcium 2021-11 Yes 1{tbl} Take 1 Un [facility] 72-iron-fol 0-14 tablet by ity of ic acid 00:00: mouth [place] (WE[facility] every Medical PLUS) 27 mg morning. Bran ch iron- 1 mg tablet PNV,calcium 2021-11 Yes 1{tbl} Take 1 Un [facility] 72-iron-fol 0-14 tablet by ity of ic acid 00:00: mouth [place] (WE[facility] every Medical PLUS) 27 mg morning. Bran ch iron- 1 mg tablet PNV,calcium 2021-11 Yes 1{tbl} Take 1 Un [facility] 72-iron-fol 0-14 tablet by ity of ic acid 00:00: mouth [place] (WE[facility] every Medical PLUS) 27 mg morning. Bran ch iron- 1 mg tablet PNV,calcium 2021-11 Yes 1{tbl} Take 1 Un [facility] 72-iron-fol 0-14 tablet by ity of ic acid 00:00: mouth [place] (WE[facility] every Medical PLUS) 27 mg morning. Bran ch iron- 1 mg tablet PNV,calcium 2021-11 Yes 1{tbl} Take 1 Un [facility] 72-iron-fol 0-14 tablet by ity of ic acid 00:00: mouth [place] (WE[facility] every Medical PLUS) 27 mg morning. Bran ch iron- 1 mg tablet PNV,calcium 2021-11 Yes 1{tbl} Take 1 Un [facility] 72-iron-fol 0-14 tablet by ity of ic acid 00:00: mouth [place] (WE[facility] every Medical PLUS) 27 mg morning. Bran ch iron- 1 mg tablet PNV,calcium 2021-11 Yes 1{tbl} Take 1 Un [facility] 72-iron-fol 0-14 tablet by ity of ic acid 00:00: mouth [place] (WE[facility] every Medical PLUS) 27 mg morning. Bran ch iron- 1 mg tablet PNV,calcium 2021-11 Yes 1{tbl} Take 1 Un [facility] 72-iron-fol 0-14 tablet by ity of ic acid 00:00: mouth [place] (AB every Medical PLUS) 27 mg morning. Bran ch iron- 1 mg tablet PNV,calcium 2021-11 Yes 1{tbl} Take 1 Un [facility] 72-iron-fol 0-14 tablet by ity of ic acid 00:00: mouth [place] (WE[facility] every Medical PLUS) 27 mg morning. Bran ch iron- 1 mg tablet PNV,calcium 2021-11 Yes 1{tbl} Take 1 Un [facility] 72-iron-fol 0-14 tablet by ity of ic acid 00:00: mouth [place] (WE[facility] every Medical PLUS) 27 mg morning. Bran ch iron- 1 mg tablet PNV,calcium 2021-11 Yes 1{tbl} Take 1 Un [facility] 72-iron-fol 0-14 tablet by ity of ic acid 00:00: mouth [place] (WE[facility] every Medical PLUS) 27 mg morning. Bran ch iron- 1 mg tablet PNV,calcium 2021-11 Yes 1{tbl} Take 1 Un [facility] 72-iron-fol 0-14 tablet by ity of ic acid 00:00: mouth [place] (AB every Medical PLUS) 27 mg morning. Bran ch iron- 1 mg tablet PNV,calcium 2021-11 Yes 1{tbl} Take 1 Un [facility] 72-iron-fol 0-14 tablet by ity of ic acid 00:00: mouth [place] (AB every Medical PLUS) 27 mg morning. Bran ch iron- 1 mg tablet PNV,calcium 2021-11 Yes 1{tbl} Take 1 Un [facility] 72-iron-fol 0-14 tablet by ity of ic acid 00:00: mouth [place] (WE[facility] every Medical PLUS) 27 mg morning. Bran ch iron- 1 mg tablet PNV,calcium 2021-11 Yes 1{tbl} Take 1 Un [facility] 72-iron-fol 0-14 tablet by ity of ic acid 00:00: mouth [place] (WE[facility] every Medical PLUS) 27 mg morning. Bran ch iron- 1 mg tablet PNV,calcium 2021-11 Yes 1{tbl} Take 1 Un [facility] 72-iron-fol 0-14 tablet by ity of ic acid 00:00: mouth [place] (WE[facility] every Medical PLUS) 27 mg morning. Bran ch iron- 1 mg tablet PNV,calcium 2021-11 Yes 1{tbl} Take 1 Un [facility] 72-iron-fol 0-14 tablet by ity of ic acid 00:00: mouth [place] (AB every Medical PLUS) 27 mg morning. Bran ch iron- 1 mg tablet PNV,calcium 2021-11 Yes 1{tbl} Take 1 Un [facility] 72-iron-fol 0-14 tablet by ity of ic acid 00:00: mouth [place] (WE[facility] every Medical PLUS) 27 mg morning. Bran ch iron- 1 mg tablet PNV,calcium 2021-11 Yes 1{tbl} Take 1 Un [facility] 72-iron-fol 0-14 tablet by ity of ic acid 00:00: mouth [place] (WE[facility] every Medical PLUS) 27 mg morning. Bran ch iron- 1 mg tablet PNV,calcium 2021-11 Yes 1{tbl} Take 1 Un [facility] 72-iron-fol 0-14 tablet by ity of ic acid 00:00: mouth [place] (WE[facility] every Medical PLUS) 27 mg morning. Bran ch iron- 1 mg tablet PNV,calcium 2021-11 Yes 1{tbl} Take 1 Un [facility] 72-iron-fol 0-14 tablet by ity of ic acid 00:00: mouth [place] (WE[facility] every Medical PLUS) 27 mg morning. Bran ch iron- 1 mg tablet PNV,calcium 2021-11 Yes 1{tbl} Take 1 Un [facility] 72-iron-fol 0-14 tablet by ity of ic acid 00:00: mouth [place] (WE[facility] 00 every Medical PLUS) 27 mg morning. Bran ch iron- 1 mg tablet PNV,calcium 2021-11 Yes 1{tbl} Take 1 Un [facility] 72-iron-fol 0-14 tablet by ity of ic acid 00:00: mouth [place] (WE[facility] 00 every Medical PLUS) 27 mg morning. Bran ch iron- 1 mg tablet PNV,calcium 2021-11 Yes 1{tbl} Take 1 Un [facility] 72-iron-fol 0-14 tablet by ity of ic acid 00:00: mouth [place] (WE[facility] 00 every Medical PLUS) 27 mg morning. Bran ch iron- 1 mg tablet PNV,calcium 2021-11 Yes 1{tbl} Take 1 Un [facility] 72-iron-fol 0-14 tablet by ity of ic acid 00:00: mouth [place] (WE[facility] every Medical PLUS) 27 mg morning. Bran ch iron- 1 mg tablet PNV,calcium 2021-11 Yes 1{tbl} Take 1 Un [facility] 72-iron-fol 0-14 tablet by ity of ic acid 00:00: mouth [place] (WE[facility] every Medical PLUS) 27 mg morning. Bran ch iron- 1 mg tablet PNV,calcium 2021-11 Yes 1{tbl} Take 1 Un [facility] 72-iron-fol 0-14 tablet by ity of ic acid 00:00: mouth [place] (WE[facility] every Medical PLUS) 27 mg morning. Bran ch iron- 1 mg tablet PNV,calcium 2021-11 Yes 1{tbl} Take 1 Un [facility] 72-iron-fol 0-14 tablet by ity of ic acid 00:00: mouth [place] (WE[facility] every Medical PLUS) 27 mg morning. Bran ch iron- 1 mg tablet PNV,calcium 2021-11 Yes 1{tbl} Take 1 Un [facility] 72-iron-fol 0-14 tablet by ity of ic acid 00:00: mouth [place] (WE[facility] every Medical PLUS) 27 mg morning. Bran ch iron- 1 mg tablet PNV,calcium 2021-11 Yes 1{tbl} Take 1 Un [facility] 72-iron-fol 0-14 tablet by ity of ic acid 00:00: mouth [place] (WE[facility] every Medical PLUS) 27 mg morning. Bran ch iron- 1 mg tablet PNV,calcium 2021-11 Yes 1{tbl} Take 1 Un [facility] 72-iron-fol 0-14 tablet by ity of ic acid 00:00: mouth [place] (AB every Medical PLUS) 27 mg morning. Bran ch iron- 1 mg tablet PNV,calcium 2021-11 Yes 1{tbl} Take 1 Un [facility] 72-iron-fol 0-14 tablet by ity of ic acid 00:00: mouth [place] (AB every Medical PLUS) 27 mg morning. Bran ch iron- 1 mg tablet PNV,calcium 2021-11 Yes 1{tbl} Take 1 Un [facility] 72-iron-fol 0-14 tablet by ity of ic acid 00:00: mouth [place] (AB every Medical PLUS) 27 mg morning. Bran ch iron- 1 mg tablet PNV,calcium 2021-11 Yes 1{tbl} Take 1 Un [facility] 72-iron-fol 0-14 tablet by ity of ic acid 00:00: mouth [place] (AB every Medical PLUS) 27 mg morning. Bran ch iron- 1 mg tablet PNV,calcium 2021-11 Yes 1{tbl} Take 1 Un [facility] 72-iron-fol 0-14 tablet by ity of ic acid 00:00: mouth [place] (AB every Medical PLUS) 27 mg morning. Bran ch iron- 1 mg tablet PNV,calcium 2021-11 Yes 1{tbl} Take 1 Un [facility] 72-iron-fol 0-14 tablet by ity of ic acid 00:00: mouth [place] (AB every Medical PLUS) 27 mg morning. Bran ch iron- 1 mg tablet PNV,calcium 2021-11 Yes 1{tbl} Take 1 Un [facility] 72-iron-fol 0-14 tablet by ity of ic acid 00:00: mouth [place] (AB every Medical PLUS) 27 mg morning. Bran ch iron- 1 mg tablet PNV,calcium 2021-11 Yes 1{tbl} Take 1 Un [facility] 72-iron-fol 0-14 tablet by ity of ic acid 00:00: mouth [place] (AB every Medical PLUS) 27 mg morning. Bran ch iron- 1 mg tablet PNV,calcium 2021-11 Yes 1{tbl} Take 1 Un [facility] 72-iron-fol 0-14 tablet by ity of ic acid 00:00: mouth [place] (WE[facility] 00 every Medical PLUS) 27 mg morning. Bran ch iron- 1 mg tablet PNV,calcium 2021-11 Yes 1{tbl} Take 1 Un [facility] 72-iron-fol 0-14 tablet by ity of ic acid 00:00: mouth [place] (WE[facility] 00 every Medical PLUS) 27 mg morning. Bran ch iron- 1 mg tablet PNV,calcium 2021-11 Yes 1{tbl} Take 1 Un [facility] 72-iron-fol 0-14 tablet by ity of ic acid 00:00: mouth [place] (WE[facility] 00 every Medical PLUS) 27 mg morning. Bran ch iron- 1 mg tablet PNV,calcium 2021-11 Yes 1{tbl} Take 1 Un [facility] 72-iron-fol 0-14 tablet by ity of ic acid 00:00: mouth [place] (WE[facility] 00 every Medical PLUS) 27 mg morning. Bran ch iron- 1 mg tablet PNV,calcium 2021-11- No 1{tbl} Take 1 U nivers 72-iron-fol 0-14 07-13 tablet by it y of ic acid 00:00: 00:00 mouth [place] (WESTAB 00 :00 every Medical PLUS) 27 mg morning. Bran ch iron- 1 mg tablet PNV,calcium 2021-11- No 1{tbl} Take 1 U nivers 72-iron-fol 0-14 07-13 tablet by it y of ic acid 00:00: 00:00 mouth [place] (WESTAB 00 :00 every Medical PLUS) 27 mg morning. Bran ch iron- 1 mg tablet PNV,calcium 2021-11- No 1{tbl} Take 1 U nivers 72-iron-fol 0-14 07-13 tablet by it y of ic acid 00:00: 00:00 mouth [place] (WE[facility]AB 00 :00 every Medical PLUS) 27 mg morning. Bran ch iron- 1 mg tablet albuterol 2021-11 Yes [id number] 2{puff} Inhale 2 [facility] 90 0-07 Puffs ity of mcg/actuati 00:00: every 6 [place] on inhaler 00 (six) Medical hours as Branch needed for Wheezing or Shortness of Breath. albuterol 2021-11 Yes [id number] 2{puff} Inhale 2 [facility] 90 0-07 Puffs [facility] of mcg/actuati 00:00: every 6 [place] on inhaler 00 (six) Medical hours as Branch needed for Wheezing or Shortness of Breath. albuterol 2021-11- No [id number] 2{puff} Inhale 2 [facility] 90 0-07 10-25 Puffs [facility] of mcg/actuati 00:00: 00:00 every 6 [place] inhaler 00 :00 (six) Medical hours as Branch needed for Wheezing or Shortness of Breath. albuterol 2021-11- No [id number] 2{puff} Inhale 2 [facility] 90 0-07 10-25 Puffs ity of mcg/actuati 00:00: 00:00 every 6 [place] on inhaler 00 :00 (six) Medical hours as Branch needed for Wheezing or Shortness of Breath. calcium Yes 650mg Take 650 Un[facility] rs carbonate 9-28 mg by ity of 650 mg 14:02: mouth [place] calcium 30 daily. Medical (1,625 mg) Branch tablet calcium Yes 650mg Take 650 [facility] carbonate 9-28 mg by ity of 650 mg 14:02: mouth [place] calcium 30 daily. Medical (1,625 mg) Branch tablet calcium Yes 650mg Take 650 [facility] carbonate 9-28 mg by ity of 650 mg 14:02: mouth [place] calcium 30 daily. Medical (1,625 mg) Branch tablet calcium Yes 650mg Take 650 [facility] rs carbonate 9-28 mg by ity of 650 mg 14:02: mouth [place] calcium 30 daily. Medical (1,625 mg) Branch tablet GLIPIZIDE 5 Yes [id number] TAKE 2 [facility] mg tablet 9-12 TABLETS BY ity of 00:00: MOUTH [place] 00 EVERY Medical MORNING Branch AND TAKE 1 TABLET BY MOUTH EVERY EVENING GLIPIZIDE 5 0 Yes [id number] TAKE 2 [facility] mg tablet 9-12 TABLETS BY ity of 00:00: MOUTH [place] 00 EVERY Medical MORNING Branch AND TAKE 1 TABLET BY MOUTH EVERY EVENING GLIPIZIDE 5 0 Yes [id number] TAKE 2 [facility] mg tablet 9-12 TABLETS BY ity of 00:00: MOUTH [place] 00 EVERY Medical MORNING Branch AND TAKE 1 TABLET BY MOUTH EVERY EVENING GLIPIZIDE 5 2021-0 Yes [id number] TAKE 2 [facility] mg tablet 9-12 TABLETS BY ity of 00:00: MOUTH [place] 00 EVERY Medical MORNING Branch AND TAKE 1 TABLET BY MOUTH EVERY EVENING GLIPIZIDE 5 0 Yes [id number] TAKE 2 [facility] mg tablet 9-12 TABLETS BY ity of 00:00: MOUTH [place] 00 EVERY Medical MORNING Branch AND TAKE 1 TABLET BY MOUTH EVERY EVENING GLIPIZIDE 5 0 Yes [id number] TAKE 2 [facility] mg tablet 9-12 TABLETS BY ity of 00:00: MOUTH [place] 00 EVERY Medical MORNING Branch AND TAKE 1 TABLET BY MOUTH EVERY EVENING GLIPIZIDE 5 0 Yes [id number] TAKE 2 [facility] mg tablet 9-12 TABLETS BY ity of 00:00: MOUTH [place] 00 EVERY Medical MORNING Branch AND TAKE 1 TABLET BY MOUTH EVERY EVENING GLIPIZIDE 5 0 Yes [id number] TAKE 2 [facility] mg tablet 9-12 TABLETS BY ity of 00:00: MOUTH [place] 00 EVERY Medical MORNING Branch AND TAKE 1 TABLET BY MOUTH EVERY EVENING GLIPIZIDE 5 0 Yes [id number] TAKE 2 [facility] mg tablet 9-12 TABLETS BY ity of 00:00: MOUTH [place] 00 EVERY Medical MORNING Branch AND TAKE 1 TABLET BY MOUTH EVERY EVENING GLIPIZIDE 5 2021-0 Yes [id number] TAKE 2 [facility] mg tablet 9-12 TABLETS BY ity of 00:00: MOUTH [place] 00 EVERY Medical MORNING Branch AND TAKE 1 TABLET BY MOUTH EVERY EVENING GLIPIZIDE 5 2021-0 Yes [id number] TAKE 2 [facility] mg tablet 9-12 TABLETS BY ity of 00:00: MOUTH [place] 00 EVERY Medical MORNING Branch AND TAKE 1 TABLET BY MOUTH EVERY EVENING GLIPIZIDE 5 2021-0 Yes [id number] TAKE 2 [facility] mg tablet 9-12 TABLETS BY ity of 00:00: MOUTH [place] 00 EVERY Medical MORNING Branch AND TAKE 1 TABLET BY MOUTH EVERY EVENING GLIPIZIDE 5 0 Yes [id number] TAKE 2 [facility] mg tablet 9-12 TABLETS BY ity of 00:00: MOUTH [place] 00 EVERY Medical MORNING Branch AND TAKE 1 TABLET BY MOUTH EVERY EVENING GLIPIZIDE 5 0 Yes [id number] TAKE 2 [facility] mg tablet 9-12 TABLETS BY ity of 00:00: MOUTH [place] 00 EVERY Medical MORNING Branch AND TAKE 1 TABLET BY MOUTH EVERY EVENING GLIPIZIDE 5 2021-0 Yes [id number] TAKE 2 [facility] mg tablet 9-12 TABLETS BY ity of 00:00: MOUTH [place] 00 EVERY Medical MORNING Branch AND TAKE 1 TABLET BY MOUTH EVERY EVENING GLIPIZIDE 5 2021-0 Yes [id number] TAKE 2 [facility] mg tablet 9-12 TABLETS BY ity of 00:00: MOUTH [place] 00 EVERY Medical MORNING Branch AND TAKE 1 TABLET BY MOUTH EVERY EVENING GLIPIZIDE 5 2021-0 Yes [id number] TAKE 2 [facility] mg tablet 9-12 TABLETS BY ity of 00:00: MOUTH [place] 00 EVERY Medical MORNING Branch AND TAKE 1 TABLET BY MOUTH EVERY EVENING GLIPIZIDE 5 2021-0 Yes [id number] TAKE 2 [facility] mg tablet 9-12 TABLETS BY ity of 00:00: MOUTH [place] 00 EVERY Medical MORNING Branch AND TAKE 1 TABLET BY MOUTH EVERY EVENING GLIPIZIDE 5 2021-0 Yes [id number] TAKE 2 [facility] mg tablet 9-12 TABLETS BY ity of 00:00: MOUTH [place] 00 EVERY Medical MORNING Branch AND TAKE 1 TABLET BY MOUTH EVERY EVENING GLIPIZIDE 5 2021-0 Yes [id number] TAKE 2 [facility] mg tablet 9-12 TABLETS BY ity of 00:00: MOUTH [place] 00 EVERY Medical MORNING Branch AND TAKE 1 TABLET BY MOUTH EVERY EVENING GLIPIZIDE 5 2021-0 Yes [id number] TAKE 2 [facility] mg tablet 9-12 TABLETS BY ity of 00:00: MOUTH [place] 00 EVERY Medical MORNING Branch AND TAKE 1 TABLET BY MOUTH EVERY EVENING GLIPIZIDE 5 2021-0 Yes [id number] TAKE 2 [facility] mg tablet 9-12 TABLETS BY ity of 00:00: MOUTH [place] 00 EVERY Medical MORNING Branch AND TAKE 1 TABLET BY MOUTH EVERY EVENING GLIPIZIDE 5 2021-0 Yes [id number] TAKE 2 [facility] mg tablet 9-12 TABLETS BY ity of 00:00: MOUTH [place] 00 EVERY Medical MORNING Branch AND TAKE 1 TABLET BY MOUTH EVERY EVENING GLIPIZIDE 5 2021-0 Yes [id number] TAKE 2 [facility] mg tablet 9-12 TABLETS BY ity of 00:00: MOUTH [place] 00 EVERY Medical MORNING Branch AND TAKE 1 TABLET BY MOUTH EVERY EVENING GLIPIZIDE 5 2021-0 Yes [id number] TAKE 2 [facility] mg tablet 9-12 TABLETS BY ity of 00:00: MOUTH [place] 00 EVERY Medical MORNING Branch AND TAKE 1 TABLET BY MOUTH EVERY EVENING GLIPIZIDE 5 2021-0 Yes [id number] TAKE 2 [facility] mg tablet 9-12 TABLETS BY ity of 00:00: MOUTH [place] 00 EVERY Medical MORNING Branch AND TAKE 1 TABLET BY MOUTH EVERY EVENING GLIPIZIDE 5 2021-0 Yes [id number] TAKE 2 [facility] mg tablet 9-12 TABLETS BY ity of 00:00: MOUTH [place] 00 EVERY Medical MORNING Branch AND TAKE 1 TABLET BY MOUTH EVERY EVENING GLIPIZIDE 5 2021-0 Yes [id number] TAKE 2 [facility] mg tablet 9-12 TABLETS BY ity of 00:00: MOUTH [place] 00 EVERY Medical MORNING Branch AND TAKE 1 TABLET BY MOUTH EVERY EVENING GLIPIZIDE 5 2021-0 Yes [id number] TAKE 2 [facility] mg tablet 9-12 TABLETS BY ity of 00:00: MOUTH [place] 00 EVERY Medical MORNING Branch AND TAKE 1 TABLET BY MOUTH EVERY EVENING GLIPIZIDE 5 2021-0 Yes [id number] TAKE 2 [facility] mg tablet 9-12 TABLETS BY ity of 00:00: MOUTH 00 EVERY Medical MORNING Branch AND TAKE 1 TABLET BY MOUTH EVERY EVENING GLIPIZIDE 5 2021-0 Yes [id number] TAKE 2 [facility] mg tablet 9-12 TABLETS BY ity of 00:00: MOUTH 00 EVERY Medical MORNING Branch AND TAKE 1 TABLET BY MOUTH EVERY EVENING GLIPIZIDE 5 2021-0 Yes [id number] TAKE 2 [facility] mg tablet 9-12 TABLETS BY ity of 00:00: MOUTH 00 EVERY Medical MORNING Branch AND TAKE 1 TABLET BY MOUTH EVERY EVENING GLIPIZIDE 5 2021-0 Yes [id number] TAKE 2 [facility] mg tablet 9-12 TABLETS BY ity of 00:00: MOUTH [place] 00 EVERY Medical MORNING Branch AND TAKE 1 TABLET BY MOUTH EVERY EVENING GLIPIZIDE 5 2021-0 Yes [id number] TAKE 2 [facility] mg tablet 9-12 TABLETS BY ity of 00:00: MOUTH [place] 00 EVERY Medical MORNING Branch AND TAKE 1 TABLET BY MOUTH EVERY EVENING GLIPIZIDE 5 2021-0 Yes [id number] TAKE 2 [facility] mg tablet 9-12 TABLETS BY ity of 00:00: MOUTH [place] 00 EVERY Medical MORNING Branch AND TAKE 1 TABLET BY MOUTH EVERY EVENING GLIPIZIDE 5 2021-0 Yes [id number] TAKE 2 [facility] mg tablet 9-12 TABLETS BY ity of 00:00: MOUTH [place] 00 EVERY Medical MORNING Branch AND TAKE 1 TABLET BY MOUTH EVERY EVENING GLIPIZIDE 5 2021-0 Yes [id number] TAKE 2 [facility] mg tablet 9-12 TABLETS BY ity of 00:00: MOUTH [place] 00 EVERY Medical MORNING Branch AND TAKE 1 TABLET BY MOUTH EVERY EVENING GLIPIZIDE 5 2021-0 Yes [id number] TAKE 2 [facility] mg tablet 9-12 TABLETS BY ity of 00:00: MOUTH [place] 00 EVERY Medical MORNING Branch AND TAKE 1 TABLET BY MOUTH EVERY EVENING GLIPIZIDE 5 0 Yes [id number] TAKE 2 [facility] mg tablet 9-12 TABLETS BY ity of 00:00: MOUTH [place] 00 EVERY Medical MORNING Branch AND TAKE 1 TABLET BY MOUTH EVERY EVENING GLIPIZIDE 5 0 Yes [id number] TAKE 2 [facility] mg tablet 9-12 TABLETS BY ity of 00:00: MOUTH [place] 00 EVERY Medical MORNING Branch AND TAKE 1 TABLET BY MOUTH EVERY EVENING GLIPIZIDE 5 2021-0 Yes [id number] TAKE 2 [facility] mg tablet 9-12 TABLETS BY ity of 00:00: MOUTH [place] 00 EVERY Medical MORNING Branch AND TAKE 1 TABLET BY MOUTH EVERY EVENING GLIPIZIDE 5 2021-0 Yes [id number] TAKE 2 [facility] mg tablet 9-12 TABLETS BY ity of 00:00: MOUTH [place] 00 EVERY Medical MORNING Branch AND TAKE 1 TABLET BY MOUTH EVERY EVENING GLIPIZIDE 5 0 Yes [id number] TAKE 2 [facility] mg tablet 9-12 TABLETS BY ity of 00:00: MOUTH [place] 00 EVERY Medical MORNING Branch AND TAKE 1 TABLET BY MOUTH EVERY EVENING GLIPIZIDE 5 2021-0 Yes [id number] TAKE 2 [facility] mg tablet 9-12 TABLETS BY ity of 00:00: MOUTH [place] 00 EVERY Medical MORNING Branch AND TAKE 1 TABLET BY MOUTH EVERY EVENING GLIPIZIDE 5 2021-0 Yes [id number] TAKE 2 [facility] mg tablet 9-12 TABLETS BY ity of 00:00: MOUTH [place] 00 EVERY Medical MORNING Branch AND TAKE 1 TABLET BY MOUTH EVERY EVENING GLIPIZIDE 5 0 Yes [id number] TAKE 2 [facility] mg tablet 9-12 TABLETS BY ity of 00:00: MOUTH [place] 00 EVERY Medical MORNING Branch AND TAKE 1 TABLET BY MOUTH EVERY EVENING GLIPIZIDE 5 0 Yes [id number] TAKE 2 [facility] mg tablet 9-12 TABLETS BY ity of 00:00: MOUTH [place] 00 EVERY Medical MORNING Branch AND TAKE 1 TABLET BY MOUTH EVERY EVENING GLIPIZIDE 5 0 Yes [id number] TAKE 2 [facility] mg tablet 9-12 TABLETS BY ity of 00:00: MOUTH [place] 00 EVERY Medical MORNING Branch AND TAKE 1 TABLET BY MOUTH EVERY EVENING GLIPIZIDE 5 0 Yes [id number] TAKE 2 [facility] mg tablet 9-12 TABLETS BY ity of 00:00: MOUTH [place] 00 EVERY Medical MORNING Branch AND TAKE 1 TABLET BY MOUTH EVERY EVENING GLIPIZIDE 5 0 Yes [id number] TAKE 2 [facility] mg tablet 9-12 TABLETS BY ity of 00:00: MOUTH [place] 00 EVERY Medical MORNING Branch AND TAKE 1 TABLET BY MOUTH EVERY EVENING GLIPIZIDE 5 0 Yes [id number] TAKE 2 [facility] mg tablet 9-12 TABLETS BY ity of 00:00: MOUTH [place] 00 EVERY Medical MORNING Branch AND TAKE 1 TABLET BY MOUTH EVERY EVENING GLIPIZIDE 5 0 Yes [id number] TAKE 2 [facility] mg tablet 9-12 TABLETS BY ity of 00:00: MOUTH [place] 00 EVERY Medical MORNING Branch AND TAKE 1 TABLET BY MOUTH EVERY EVENING GLIPIZIDE 5 0 Yes [id number] TAKE 2 [facility] mg tablet 9-12 TABLETS BY ity of 00:00: MOUTH [place] 00 EVERY Medical MORNING Branch AND TAKE 1 TABLET BY MOUTH EVERY EVENING GLIPIZIDE 5 0 Yes [id number] TAKE 2 [facility] mg tablet 9-12 TABLETS BY ity of 00:00: MOUTH [place] 00 EVERY Medical MORNING Branch AND TAKE 1 TABLET BY MOUTH EVERY EVENING GLIPIZIDE 5 0 Yes [id number] TAKE 2 [facility] mg tablet 9-12 TABLETS BY ity of 00:00: MOUTH [place] 00 EVERY Medical MORNING Branch AND TAKE 1 TABLET BY MOUTH EVERY EVENING GLIPIZIDE 5 0 Yes [id number] TAKE 2 [facility] mg tablet 9-12 TABLETS BY ity of 00:00: MOUTH [place] 00 EVERY Medical MORNING Branch AND TAKE 1 TABLET BY MOUTH EVERY EVENING GLIPIZIDE 5 0 Yes [id number] TAKE 2 [facility] mg tablet 9-12 TABLETS BY ity of 00:00: MOUTH [place] 00 EVERY Medical MORNING Branch AND TAKE 1 TABLET BY MOUTH EVERY EVENING GLIPIZIDE 5 2022-0 Yes [id number] TAKE 2 [facility] mg tablet 9-12 TABLETS BY ity of 00:00: MOUTH [place] 00 EVERY Medical MORNING Branch AND TAKE 1 TABLET BY MOUTH EVERY EVENING GLIPIZIDE 5 2021-0 Yes [id number] TAKE 2 [facility] mg tablet 9-12 TABLETS BY ity of 00:00: MOUTH [place] 00 EVERY Medical MORNING Branch AND TAKE 1 TABLET BY MOUTH EVERY EVENING GLIPIZIDE 5 2021-0 Yes [id number] TAKE 2 [facility] mg tablet 9-12 TABLETS BY ity of 00:00: MOUTH [place] 00 EVERY Medical MORNING Branch AND TAKE 1 TABLET BY MOUTH EVERY EVENING GLIPIZIDE 5 2021-0 Yes [id number] TAKE 2 [facility] mg tablet 9-12 TABLETS BY ity of 00:00: MOUTH [place] 00 EVERY Medical MORNING Branch AND TAKE 1 TABLET BY MOUTH EVERY EVENING GLIPIZIDE 5 0 2022- No [id number] TAKE 2 [facility] mg tablet 9-12 05-22 TABLETS BY ity of 00:00: 00:00 MOUTH [place] 00 :00 EVERY Medical MORNING Branch AND TAKE 1 TABLET BY MOUTH EVERY EVENING calcium 2021-0 Yes 650mg Take 650 Un[facility] rs carbonate 8-26 mg by ity of 650 mg 16:09: mouth [place] calcium 09 daily. Medical (1,625 mg) Branch tablet calcium 0 Yes 650mg Take 650 Un[facility] rs carbonate 8-26 mg by ity of 650 mg 16:09: mouth [place] calcium 09 daily. Medical (1,625 mg) Branch tablet calcium 0 Yes 650mg Take 650 Un[facility] rs carbonate 8-26 mg by ity of 650 mg 16:09: mouth [place] calcium 09 daily. Medical (1,625 mg) Branch tablet calcium 2021-0 Yes 650mg Take 650 Un[facility] rs carbonate 8-26 mg by ity of 650 mg 16:09: mouth [place] calcium 09 daily. Medical (1,625 mg) Branch tablet calcium 2021-0 Yes 650mg Take 650 Un[facility] rs carbonate 8-26 mg by ity of 650 mg 16:09: mouth [place] calcium 09 daily. Medical (1,625 mg) Branch tablet calcium 2021-0 Yes 650mg Take 650 Un[facility] rs carbonate 8-26 mg by ity of 650 mg 16:09: mouth [place] calcium 09 daily. Medical (1,625 mg) Branch tablet nystatin 0 2021- No [id number] Take 5 mL [facility] 100,000 07-18 by mouth 4 ity o f unit/mL 00:00: 04:59 (four) [place] suspension 00 :00 times Medical daily for Branch 7 days. nystatin 2021- No [id number] Take 5 mL [facility] 100,000 07-18 by mouth 4 ity o f unit/mL 00:00: 04:59 (four) [place] suspension 00 :00 times Medical daily for Branch 7 days. nystatin 2021- No [id number] Take 5 mL [facility] 100,000 07-18 by mouth 4 ity o f unit/mL 00:00: 04:59 (four) [place] suspension 00 :00 times Medical daily for Branch 7 days. spironolact Yes [id number] 25mg Take 1 [facility] one 25 mg 8-17 tablet by ity o f tablet 00:00: mouth [place] 00 daily. [facility] montelukast Yes [id number] 10mg Take 1 [facility] 10 mg 8-17 tablet by ity of tablet 00:00: mouth [place] 00 every Medical evening. [place] spironolact Yes [id number] 25mg Take 1 [facility] one 25 mg 8-17 tablet by ity o f tablet 00:00: mouth [place] 00 daily. [facility] montelukast Yes [id number] 10mg Take 1 [facility] 10 mg 8-17 tablet by ity of tablet 00:00: mouth [place] 00 every Medical evening. [place] spironolact Yes [id number] 25mg Take 1 [facility] one 25 mg 8-17 tablet by ity o f tablet 00:00: mouth [place] 00 daily. [facility] montelukast Yes [id number] 10mg Take 1 [facility] 10 mg 8-17 tablet by ity of tablet 00:00: mouth [place] 00 every Medical evening. [place] spironolact Yes [id number] 25mg Take 1 [facility] one 25 mg 8-17 tablet by ity o f tablet 00:00: mouth [place] 00 daily. [facility] montelukast Yes [id number] 10mg Take 1 [facility] 10 mg 8-17 tablet by ity of tablet 00:00: mouth [place] 00 every Medical evening. [place] spironolact 2021-0 Yes [id number] 25mg Take 1 [facility] one 25 mg 8-17 tablet by ity o f tablet 00:00: mouth [place] 00 daily. [facility] montelukast 2021-0 Yes [id number] 10mg Take 1 [facility] 10 mg 8-17 tablet by ity of tablet 00:00: mouth [place] 00 every Medical evening. [place] spironolact 2021-0 Yes [id number] 25mg Take 1 [facility] one 25 mg 8-17 tablet by ity o f tablet 00:00: mouth [place] 00 daily. [facility] montelukast 0 Yes [id number] 10mg Take 1 [facility] 10 mg 8-17 tablet by ity of tablet 00:00: mouth [place] 00 every Medical evening. [place] spironolact 0 Yes [id number] 25mg Take 1 [facility] one 25 mg 8-17 tablet by ity o f tablet 00:00: mouth [place] 00 daily. [facility] montelukast 0 Yes [id number] 10mg Take 1 [facility] 10 mg 8-17 tablet by ity of tablet 00:00: mouth [place] 00 every Medical evening. [place] spironolact 0 Yes [id number] 25mg Take 1 [facility] one 25 mg 8-17 tablet by ity o f tablet 00:00: mouth [place] 00 daily. [facility] montelukast 0 Yes [id number] 10mg Take 1 [facility] 10 mg 8-17 tablet by ity of tablet 00:00: mouth [place] 00 every Medical evening. [place] spironolact 2021-0 Yes [id number] 25mg Take 1 [facility] one 25 mg 8-17 tablet by ity o f tablet 00:00: mouth [place] 00 daily. [facility] montelukast 0 Yes [id number] 10mg Take 1 [facility] 10 mg 8-17 tablet by ity of tablet 00:00: mouth [place] 00 every Medical evening. [place] spironolact 0 Yes [id number] 25mg Take 1 [facility] one 25 mg 8-17 tablet by ity o f tablet 00:00: mouth [place] 00 daily. [facility] montelukast 2021-0 Yes [id number] 10mg Take 1 [facility] 10 mg 8-17 tablet by ity of tablet 00:00: mouth [place] 00 every Medical evening. [place] spironolact 0 Yes [id number] 25mg Take 1 [facility] one 25 mg 8-17 tablet by ity o f tablet 00:00: mouth [place] 00 daily. [facility] montelukast 2021-0 Yes [id number] 10mg Take 1 [facility] 10 mg 8-17 tablet by ity of tablet 00:00: mouth [place] 00 every Medical evening. [place] spironolact 0 Yes [id number] 25mg Take 1 [facility] one 25 mg 8-17 tablet by ity o f tablet 00:00: mouth [place] 00 daily. [facility] montelukast 0 Yes [id number] 10mg Take 1 [facility] 10 mg 8-17 tablet by ity of tablet 00:00: mouth [place] 00 every Medical evening. [place] spironolact 0 Yes [id number] 25mg Take 1 [facility] one 25 mg 8-17 tablet by ity o f tablet 00:00: mouth [place] 00 daily. [facility] montelukast 0 Yes [id number] 10mg Take 1 [facility] 10 mg 8-17 tablet by ity of tablet 00:00: mouth [place] 00 every Medical evening. [place] spironolact 0 Yes [id number] 25mg Take 1 [facility] one 25 mg 8-17 tablet by ity o f tablet 00:00: mouth [place] 00 daily. [facility] montelukast 0 Yes [id number] 10mg Take 1 [facility] 10 mg 8-17 tablet by ity of tablet 00:00: mouth [place] 00 every Medical evening. [place] spironolact 0 Yes [id number] 25mg Take 1 [facility] one 25 mg 8-17 tablet by ity o f tablet 00:00: mouth [place] 00 daily. [facility] montelukast 0 Yes [id number] 10mg Take 1 [facility] 10 mg 8-17 tablet by ity of tablet 00:00: mouth [place] 00 every Medical evening. [place] spironolact 0 Yes [id number] 25mg Take 1 [facility] one 25 mg 8-17 tablet by ity o f tablet 00:00: mouth [place] 00 daily. [facility] montelukast 0 Yes [id number] 10mg Take 1 [facility] 10 mg 8-17 tablet by ity of tablet 00:00: mouth [place] 00 every Medical evening. [place] spironolact 0 Yes [id number] 25mg Take 1 [facility] one 25 mg 8-17 tablet by ity o f tablet 00:00: mouth [place] 00 daily. [facility] montelukast 0 Yes [id number] 10mg Take 1 [facility] 10 mg 8-17 tablet by ity of tablet 00:00: mouth [place] 00 every Medical evening. Branch spironolact 0 Yes [id number] 25mg Take 1 [facility] one 25 mg 8-17 tablet by ity o f tablet 00:00: mouth [place] 00 daily. [facility] montelukast 0 Yes [id number] 10mg Take 1 [facility] 10 mg 8-17 tablet by ity of tablet 00:00: mouth [place] 00 every Medical evening. [place] spironolact 0 Yes [id number] 25mg Take 1 [facility] one 25 mg 8-17 tablet by ity o f tablet 00:00: mouth [place] 00 daily. [facility] montelukast 0 Yes [id number] 10mg Take 1 [facility] 10 mg 8-17 tablet by ity of tablet 00:00: mouth [place] 00 every Medical evening. [place] spironolact Yes [id number] 25mg Take 1 [facility] one 25 mg 8-17 tablet by ity o f tablet 00:00: mouth [place] 00 daily. [facility] montelukast 0 Yes [id number] 10mg Take 1 [facility] 10 mg 8-17 tablet by ity of tablet 00:00: mouth [place] 00 every Medical evening. [place] spironolact 0 Yes [id number] 25mg Take 1 [facility] one 25 mg 8-17 tablet by ity o f tablet 00:00: mouth [place] 00 daily. [facility] montelukast 0 Yes [id number] 10mg Take 1 [facility] 10 mg 8-17 tablet by ity of tablet 00:00: mouth [place] 00 every Medical evening. Branch spironolact 0 Yes [id number] 25mg Take 1 [facility] one 25 mg 8-17 tablet by ity o f tablet 00:00: mouth [place] 00 daily. [facility] montelukast 0 Yes [id number] 10mg Take 1 [facility] 10 mg 8-17 tablet by ity of tablet 00:00: mouth [place] 00 every Medical evening. [place] spironolact Yes [id number] 25mg Take 1 [facility] one 25 mg 8-17 tablet by ity o f tablet 00:00: mouth [place] 00 daily. [facility] montelukast 0 Yes [id number] 10mg Take 1 [facility] 10 mg 8-17 tablet by ity of tablet 00:00: mouth [place] 00 every Medical evening. Branch spironolact Yes [id number] 25mg Take 1 [facility] one 25 mg 8-17 tablet by ity o f tablet 00:00: mouth [place] 00 daily. [facility] montelukast Yes [id number] 10mg Take 1 [facility] 10 mg 8-17 tablet by ity of tablet 00:00: mouth [place] 00 every Medical evening. [place] spironolact Yes [id number] 25mg Take 1 [facility] one 25 mg 8-17 tablet by ity o f tablet 00:00: mouth [place] 00 daily. [facility] montelukast 0 Yes [id number] 10mg Take 1 [facility] 10 mg 8-17 tablet by ity of tablet 00:00: mouth [place] 00 every Medical evening. [place] spironolact Yes [id number] 25mg Take 1 [facility] one 25 mg 8-17 tablet by ity o f tablet 00:00: mouth [place] 00 daily. [facility] spironolact Yes [id number] 25mg Take 1 [facility] one 25 mg 8-17 tablet by ity o f tablet 00:00: mouth [place] 00 daily. [facility] spironolact 0 Yes [id number] 25mg Take 1 [facility] one 25 mg 8-17 tablet by ity o f tablet 00:00: mouth [place] 00 daily. [facility] spironolact 0 Yes [id number] 25mg Take 1 [facility] one 25 mg 8-17 tablet by ity o f tablet 00:00: mouth [place] 00 daily. [facility] spironolact 0 Yes [id number] 25mg Take 1 [facility] one 25 mg 8-17 tablet by ity o f tablet 00:00: mouth [place] 00 daily. [facility] spironolact 0 Yes [id number] 25mg Take 1 [facility] one 25 mg 8-17 tablet by ity o f tablet 00:00: mouth [place] 00 daily. [facility] spironolact 2021-0 Yes [id number] 25mg Take 1 [facility] one 25 mg 8-17 tablet by ity o f tablet 00:00: mouth [place] 00 daily. Medical Branch spironolact 2021-0 Yes [id number] 25mg Take 1 [facility] one 25 mg 8-17 tablet by ity o f tablet 00:00: mouth [place] 00 daily. Medical [facility] spironolact 2021-0 Yes [id number] 25mg Take 1 [facility] one 25 mg 8-17 tablet by ity o f tablet 00:00: mouth [place] 00 daily. Medical Branch spironolact 2021-0 Yes [id number] 25mg Take 1 [facility] one 25 mg 8-17 tablet by ity o f tablet 00:00: mouth [place] 00 daily. Medical Branch spironolact 2021-0 Yes [id number] 25mg Take 1 [facility] one 25 mg 8-17 tablet by ity o f tablet 00:00: mouth [place] 00 daily. Medical [facility] spironolact 2021-0 Yes [id number] 25mg Take 1 [facility] one 25 mg 8-17 tablet by ity o f tablet 00:00: mouth [place] 00 daily. Medical [facility] spironolact 2021-0 Yes [id number] 25mg Take 1 [facility] one 25 mg 8-17 tablet by ity o f tablet 00:00: mouth [place] 00 daily. [facility] spironolact 2021-0 Yes [id number] 25mg Take 1 [facility] one 25 mg 8-17 tablet by ity o f tablet 00:00: mouth [place] 00 daily. Medical [facility] spironolact 2021-0 Yes [id number] 25mg Take 1 [facility] one 25 mg 8-17 tablet by ity o f tablet 00:00: mouth [place] 00 daily. Medical [facility] spironolact 2021-0 Yes [id number] 25mg Take 1 [facility] one 25 mg 8-17 tablet by ity o f tablet 00:00: mouth [place] 00 daily. Medical [facility] spironolact 2021-0 Yes [id number] 25mg Take 1 [facility] one 25 mg 8-17 tablet by ity o f tablet 00:00: mouth [place] 00 daily. Medical [facility] spironolact 2021-0 Yes [id number] 25mg Take 1 [facility] one 25 mg 8-17 tablet by ity o f tablet 00:00: mouth [place] 00 daily. Medical [facility] spironolact 2021-0 Yes [id number] 25mg Take 1 [facility] one 25 mg 8-17 tablet by ity o f tablet 00:00: mouth [place] 00 daily. Medical [facility] spironolact 2021-0 Yes [id number] 25mg Take 1 [facility] one 25 mg 8-17 tablet by ity o f tablet 00:00: mouth [place] 00 daily. Medical [facility] spironolact 2021-0 Yes [id number] 25mg Take 1 [facility] one 25 mg 8-17 tablet by ity o f tablet 00:00: mouth [place] 00 daily. Medical [facility] spironolact 2021-0 Yes [id number] 25mg Take 1 [facility] one 25 mg 8-17 tablet by ity o f tablet 00:00: mouth [place] 00 daily. Medical [facility] spironolact 2021-0 Yes [id number] 25mg Take 1 [facility] one 25 mg 8-17 tablet by ity o f tablet 00:00: mouth [place] 00 daily. Medical [facility] spironolact 2021-0 Yes [id number] 25mg Take 1 [facility] one 25 mg 8-17 tablet by ity o f tablet 00:00: mouth [place] 00 daily. Medical [facility] spironolact 2021-0 Yes [id number] 25mg Take 1 [facility] one 25 mg 8-17 tablet by ity o f tablet 00:00: mouth [place] 00 daily. [facility] spironolact 2021-0 Yes [id number] 25mg Take 1 [facility] 25 mg 8-17 tablet by it[facility] o f tablet 00:00: mouth [place] 00 daily. [facility] spironolact 2021-0 Yes [id number] 25mg Take 1 [facility] one 25 mg 8-17 tablet by it[facility] o f tablet 00:00: mouth [place] 00 daily. [facility] spironolact 2021-0 Yes [id number] 25mg Take 1 [facility] 25 mg 8-17 tablet by it[facility] o f tablet 00:00: mouth [place] 00 daily. [facility] spironolact 2021-0 Yes [id number] 25mg Take 1 [facility] 25 mg 8-17 tablet by [facility] o f tablet 00:00: mouth [place] 00 daily. [facility] spironolact 2021-0 Yes [id number] 25mg Take 1 [facility] 25 mg 8-17 tablet by [facility] o f tablet 00:00: mouth [place] 00 daily. [facility] spironolact 2021-0 Yes [id number] 25mg Take 1 [facility] 25 mg 8-17 tablet by it[facility] o f tablet 00:00: mouth [place] 00 daily. [facility] spironolact 2021-0 Yes [id number] 25mg Take 1 [facility] 25 mg 8-17 tablet by [facility] o f tablet 00:00: mouth [place] 00 daily. [facility] spironolact 2021-0 Yes [id number] 25mg Take 1 [facility] 25 mg 8-17 tablet by [facility] o f tablet 00:00: mouth [place] 00 daily. [facility] spironolact 2021-0 Yes [id number] 25mg Take 1 [facility] 25 mg 8-17 tablet by [facility] o f tablet 00:00: mouth [place] 00 daily. [facility] spironolact 2021-0 Yes [id number] 25mg Take 1 [facility] 25 mg 8-17 tablet by [facility] o f tablet 00:00: mouth [place] 00 daily. [facility] spironolact 2021-0 Yes [id number] 25mg Take 1 [facility] 25 mg 8-17 tablet by [facility] o f tablet 00:00: mouth [place] 00 daily. [facility] spironolact 0 Yes [id number] 25mg Take 1 [facility] one 25 mg 8-17 tablet by ity o f tablet 00:00: mouth [place] 00 daily. [facility] spironolact 2021-0 Yes [id number] 25mg Take 1 [facility] one 25 mg 8-17 tablet by it[facility] o f tablet 00:00: mouth [place] 00 daily. [facility] spironolact 2021-0 Yes [id number] 25mg Take 1 [facility] 25 mg 8-17 tablet by it[facility] o f tablet 00:00: mouth [place] 00 daily. [facility] spironolact 2021-0 Yes [id number] 25mg Take 1 [facility] 25 mg 8-17 tablet by [facility] o f tablet 00:00: mouth [place] 00 daily. [facility] spironolact 2021-0 Yes [id number] 25mg Take 1 [facility] 25 mg 8-17 tablet by [facility] o f tablet 00:00: mouth [place] 00 daily. [facility] spironolact 2021-0 Yes [id number] 25mg Take 1 [facility] 25 mg 8-17 tablet by [facility] o f tablet 00:00: mouth [place] 00 daily. [facility] spironolact 2021-0 Yes [id number] 25mg Take 1 [facility] 25 mg 8-17 tablet by [facility] o f tablet 00:00: mouth [place] 00 daily. [facility] spironolact 2021-0 Yes [id number] 25mg Take 1 [facility] 25 mg 8-17 tablet by [facility] o f tablet 00:00: mouth [place] 00 daily. [facility] spironolact 2021-0 Yes [id number] 25mg Take 1 [facility] 25 mg 8-17 tablet by [facility] o f tablet 00:00: mouth [place] 00 daily. [facility] spironolact 2021-0 Yes [id number] 25mg Take 1 [facility] 25 mg 8-17 tablet by [facility] o f tablet 00:00: mouth [place] 00 daily. [facility] spironolact 2021-0 Yes [id number] 25mg Take 1 [facility] 25 mg 8-17 tablet by [facility] o f tablet 00:00: mouth [place] 00 daily. [facility] spironolact 2021-0 Yes [id number] 25mg Take 1 [facility] 25 mg 8-17 tablet by [facility] o f tablet 00:00: mouth [place] 00 daily. [facility] spironolact 2021-0 Yes [id number] 25mg Take 1 [facility] 25 mg 8-17 tablet by it[facility] o f tablet 00:00: mouth [place] 00 daily. [facility] spironolact 2021-0 Yes [id number] 25mg Take 1 [facility] one 25 mg 8-17 tablet by ity o f tablet 00:00: mouth [place] 00 daily. [facility] spironolact 2021-0 Yes [id number] 25mg Take 1 [facility] 25 mg 8-17 tablet by [facility] o f tablet 00:00: mouth [place] 00 daily. [facility] spironolact 2021-0 Yes [id number] 25mg Take 1 [facility] 25 mg 8-17 tablet by [facility] o f tablet 00:00: mouth [place] 00 daily. [facility] spironolact 2021-0 Yes [id number] 25mg Take 1 [facility] 25 mg 8-17 tablet by [facility] o f tablet 00:00: mouth [place] 00 daily. [facility] spironolact 2021-0 Yes [id number] 25mg Take 1 [facility] 25 mg 8-17 tablet by it[facility] o f tablet 00:00: mouth [place] 00 daily. [facility] spironolact 2021-0 Yes [id number] 25mg Take 1 [facility] 25 mg 8-17 tablet by [facility] o f tablet 00:00: mouth [place] 00 daily. [facility] spironolact 2021-0 Yes [id number] 25mg Take 1 [facility] 25 mg 8-17 tablet by it[facility] o f tablet 00:00: mouth [place] 00 daily. [facility] spironolact 2021-0 Yes [id number] 25mg Take 1 [facility] 25 mg 8-17 tablet by it[facility] o f tablet 00:00: mouth [place] 00 daily. [facility] spironolact 2021-0 Yes [id number] 25mg Take 1 [facility] 25 mg 8-17 tablet by [facility] o f tablet 00:00: mouth [place] 00 daily. [facility] spironolact 2021-0 Yes [id number] 25mg Take 1 [facility] 25 mg 8-17 tablet by [facility] o f tablet 00:00: mouth [place] 00 daily. [facility] spironolact 0 Yes [id number] 25mg Take 1 [facility] 25 mg 8-17 tablet by [facility] o f tablet 00:00: mouth [place] 00 daily. [facility] spironolact 0 Yes [id number] 25mg Take 1 [facility] one 25 mg 8-17 tablet by ity o f tablet 00:00: mouth [place] 00 daily. [facility] spironolact 2021-0 Yes [id number] 25mg Take 1 [facility] one 25 mg 8-17 tablet by ity o f tablet 00:00: mouth [place] 00 daily. [facility] spironolact 2021-0 Yes [id number] 25mg Take 1 [facility] one 25 mg 8-17 tablet by ity o f tablet 00:00: mouth [place] 00 daily. [facility] spironolact 2021-0 2022- No [id number] 25mg Take 1 [facility] 25 mg 8-17 07-13 tablet by [facility] of tablet 00:00: 00:00 mouth [place] 00 :00 daily. [facility] spironolact 2021-0 2022- No [id number] 25mg Take 1 [facility] one 25 mg 8-17 07-13 tablet by ity of tablet 00:00: 00:00 mouth [place] 00 :00 daily. [facility] spironolact 0 3- No [id number] 25mg Take 1 [facility] 25 mg 8-17 07-13 tablet by ity of tablet 00:00: 00:00 mouth [place] 00 :00 daily. [facility] montelukast 3- No [id number] 10mg Take 1 [facility] 10 mg 8-17 02-16 tablet by ity of tablet 00:00: 00:00 mouth [place] 00 :00 every Medical evening. Branch furosemide 2021-0 Yes Take 1 [facility] 20 mg 8-05 tablet two [facility] of tablet 00:00: times [place] daily [facility] furosemide 2021-0 Yes Take 1 [facility] 20 mg 8-05 tablet two ity of tablet 00:00: times [place] daily [facility] furosemide 2021-0 Yes Take 1 [facility] 20 mg 8-05 tablet two ity of tablet 00:00: times [place] daily [facility] furosemide 2021-0 Yes Take 1 [facility] 20 mg 8-05 tablet two ity of tablet 00:00: times [place] daily [facility] furosemide 2-0 Yes Take 1 [facility] 20 mg 8-05 tablet two [facility]y of tablet 00:00: times [place] daily [facility] furosemide 2021-0 Yes Take 1 [facility] 20 mg 8-05 tablet two ity of tablet 00:00: times [place] daily [facility] furosemide 2021-0 Yes Take 1 [facility] 20 mg 8-05 tablet two [facility]y of tablet 00:00: times [place] daily [facility] furosemide 2-0 Yes Take 1 [facility] 20 mg 8-05 tablet two ity of tablet 00:00: times [place] daily [facility] furosemide 2-0 Yes Take 1 [facility] 20 mg 8-05 tablet two ity of tablet 00:00: times [place] daily [facility] furosemide 2-0 Yes Take 1 [facility] 20 mg 8-05 tablet two ity of tablet 00:00: times [place] daily [facility] furosemide 2-0 Yes Take 1 [facility] 20 mg 8-05 tablet two ity of tablet 00:00: times [place] daily [facility] furosemide 2-0 Yes Take 1 [facility] 20 mg 8-05 tablet two ity of tablet 00:00: times [place] daily [facility] furosemide 2-0 Yes Take 1 [facility] 20 mg 8-05 tablet two ity of tablet 00:00: times [place] daily [facility] furosemide 2022-0 Yes Take 1 [facility] 20 mg 8-05 tablet two ity of tablet 00:00: times daily [facility] Branch furosemide 2022-0 Yes Take 1 [facility] 20 mg 8-05 tablet two ity of tablet 00:00: times daily [facility] Branch furosemide 2022-0 Yes Take 1 [facility] 20 mg 8-05 tablet two ity of tablet 00:00: times daily [facility] Branch furosemide 2022-0 Yes Take 1 [facility] 20 mg 8-05 tablet two ity of tablet 00:00: times [place] daily [facility] furosemide 2022-0 Yes Take 1 [facility] 20 mg 8-05 tablet two ity of tablet 00:00: times [place] daily [facility] furosemide 2022-0 Yes Take 1 [facility] 20 mg 8-05 tablet two ity of tablet 00:00: times [place] daily [facility] furosemide 2022-0 Yes Take 1 [facility] 20 mg 8-05 tablet two ity of tablet 00:00: times [place] daily [facility] furosemide 2022-0 Yes Take 1 [facility] 20 mg 8-05 tablet two [facility]y of tablet 00:00: times [place] daily [facility] furosemide 2022-0 Yes Take 1 [facility] 20 mg 8-05 tablet two ity of tablet 00:00: times [place] daily [facility] furosemide 2022-0 Yes Take 1 [facility] 20 mg 8-05 tablet two ity of tablet 00:00: times [place] daily [facility] furosemide 2022-0 Yes Take 1 [facility] 20 mg 8-05 tablet two ity of tablet 00:00: times [place] daily [facility] furosemide 2022-0 Yes Take 1 [facility] 20 mg 8-05 tablet two ity of tablet 00:00: times [place] daily [facility] furosemide 2022-0 Yes Take 1 [facility] 20 mg 8-05 tablet two ity of tablet 00:00: times [place] daily [facility] furosemide 2022-0 Yes Take 1 [facility] 20 mg 8-05 tablet two ity of tablet 00:00: times [place] daily [facility] furosemide 2022-0 Yes Take 1 [facility] 20 mg 8-05 tablet two ity of tablet 00:00: times daily [facility] Branch furosemide 2022-0 Yes Take 1 [facility] 20 mg 8-05 tablet two ity of tablet 00:00: times [place] daily [facility] furosemide 2022-0 Yes Take 1 [facility] 20 mg 8-05 tablet two ity of tablet 00:00: times daily [facility] Branch furosemide 2022-0 Yes Take 1 [facility] 20 mg 8-05 tablet two ity of tablet 00:00: times daily [facility] Branch furosemide 2022-0 Yes Take 1 [facility] 20 mg 8-05 tablet two ity of tablet 00:00: times daily [facility] Branch furosemide 2022-0 Yes Take 1 [facility] 20 mg 8-05 tablet two ity of tablet 00:00: times [place] daily [facility] furosemide 2022-0 Yes Take 1 [facility] 20 mg 8-05 tablet two ity of tablet 00:00: times [place] daily [facility] furosemide 2022-0 Yes Take 1 [facility] 20 mg 8-05 tablet two ity of tablet 00:00: times [place] daily [facility] furosemide 2022-0 Yes Take 1 [facility] 20 mg 8-05 tablet two ity of tablet 00:00: times [place] daily [facility] furosemide 2022-0 Yes Take 1 [facility] 20 mg 8-05 tablet two ity of tablet 00:00: times [place] daily [facility] furosemide 2022-0 Yes Take 1 [facility] 20 mg 8-05 tablet two ity of tablet 00:00: times [place] daily [facility] furosemide 2022-0 Yes Take 1 [facility] 20 mg 8-05 tablet two ity of tablet 00:00: times [place] daily [facility] furosemide 2022-0 Yes Take 1 [facility] 20 mg 8-05 tablet two ity of tablet 00:00: times [place] daily [facility] furosemide 2022-0 Yes Take 1 [facility] 20 mg 8-05 tablet two ity of tablet 00:00: times [place] daily [facility] furosemide 2022-0 Yes Take 1 [facility] 20 mg 8-05 tablet two ity of tablet 00:00: times [place] daily [facility] furosemide 2022-0 Yes Take 1 [facility] 20 mg 8-05 tablet two ity of tablet 00:00: times [place] daily [facility] furosemide 2022-0 Yes Take 1 [facility] 20 mg 8-05 tablet two ity of tablet 00:00: times [place] daily [facility] furosemide 2022-0 Yes Take 1 [facility] 20 mg 8-05 tablet two ity of tablet 00:00: times [place] daily [facility] furosemide 2022-0 Yes Take 1 [facility] 20 mg 8-05 tablet two ity of tablet 00:00: times [place] daily [facility] furosemide 2022-0 Yes Take 1 [facility] 20 mg 8-05 tablet two ity of tablet 00:00: times [place] daily [facility] furosemide 2022-0 Yes Take 1 [facility] 20 mg 8-05 tablet two ity of tablet 00:00: times [place] daily [facility] furosemide 2022-0 Yes Take 1 [facility] 20 mg 8-05 tablet two ity of tablet 00:00: times [place] daily [facility] furosemide 2022-0 Yes Take 1 [facility] 20 mg 8-05 tablet two ity of tablet 00:00: times [place] daily [facility] furosemide 2022-0 Yes Take 1 [facility] 20 mg 8-05 tablet two ity of tablet 00:00: times [place] daily [facility] furosemide 2022-0 Yes Take 1 [facility] 20 mg 8-05 tablet two ity of tablet 00:00: times [place] daily [facility] furosemide 2022-0 Yes Take 1 [facility] 20 mg 8-05 tablet two ity of tablet 00:00: times [place] daily [facility] furosemide 2022-0 Yes Take 1 [facility] 20 mg 8-05 tablet two ity of tablet 00:00: times [place] daily [facility] furosemide 2022-0 Yes Take 1 [facility] 20 mg 8-05 tablet two ity of tablet 00:00: times [place] daily [facility] furosemide 2022-0 Yes Take 1 [facility] 20 mg 8-05 tablet two ity of tablet 00:00: times [place] daily [facility] furosemide 2022-0 Yes Take 1 [facility] 20 mg 8-05 tablet two ity of tablet 00:00: times [place] daily [facility] furosemide 2022-0 Yes Take 1 [facility] 20 mg 8-05 tablet two ity of tablet 00:00: times [place] daily [facility] furosemide 2022-0 Yes Take 1 [facility] 20 mg 8-05 tablet two ity of tablet 00:00: times [place] daily [facility] furosemide 2022-0 Yes Take 1 [facility] 20 mg 8-05 tablet two ity of tablet 00:00: times [place] daily [facility] furosemide 2022-0 Yes Take 1 [facility] 20 mg 8-05 tablet two ity of tablet 00:00: times [place] daily [facility] furosemide 2022-0 Yes Take 1 [facility] 20 mg 8-05 tablet two ity of tablet 00:00: times daily [facility] Branch furosemide 2022-0 Yes Take 1 [facility] 20 mg 8-05 tablet two ity of tablet 00:00: times daily [facility] Branch furosemide 2022-0 Yes Take 1 [facility] 20 mg 8-05 tablet two ity of tablet 00:00: times [place] daily [facility] furosemide 2-0 Yes Take 1 [facility] 20 mg 8-05 tablet two ity of tablet 00:00: times [place] daily [facility] furosemide 2022-0 Yes Take 1 [facility] 20 mg 8-05 tablet two ity of tablet 00:00: times [place] daily [facility] furosemide 2022-0 Yes Take 1 [facility] 20 mg 8-05 tablet two ity of tablet 00:00: times [place] daily [facility] furosemide 2022-0 Yes Take 1 [facility] 20 mg 8-05 tablet two ity of tablet 00:00: times [place] daily [facility] furosemide 2022-0 Yes Take 1 [facility] 20 mg 8-05 tablet two ity of tablet 00:00: times [place] daily [facility] furosemide 2022-0 Yes Take 1 [facility] 20 mg 8-05 tablet two ity of tablet 00:00: times [place] daily [facility] furosemide 2022-0 Yes Take 1 [facility] 20 mg 8-05 tablet two ity of tablet 00:00: times [place] daily [facility] furosemide 2022-0 Yes Take 1 [facility] 20 mg 8-05 tablet two ity of tablet 00:00: times [place] daily [facility] furosemide 2022-0 Yes Take 1 [facility] 20 mg 8-05 tablet two ity of tablet 00:00: times [place] daily [facility] furosemide 2022-0 Yes Take 1 [facility] 20 mg 8-05 tablet two ity of tablet 00:00: times [place] daily [facility] furosemide 2022-0 Yes Take 1 [facility] 20 mg 8-05 tablet two ity of tablet 00:00: times [place] [address] daily Medical Branch furosemide 2022-0 Yes Take 1 [facility] rs 20 mg 8-05 tablet two ity of tablet 00:00: times [place] [address] daily Medical Branch furosemide 2022-0 Yes Take 1 [facility] rs 20 mg 8-05 tablet two ity of tablet 00:00: times [place] daily [facility] furosemide 2022-0 Yes Take 1 [facility] 20 mg 8-05 tablet two ity of tablet 00:00: times [place] daily [facility] furosemide 2022-0 Yes Take 1 [facility] 20 mg 8-05 tablet two ity of tablet 00:00: times [place] [address] daily Medical Branch furosemide 2022-0 Yes Take 1 [facility] 20 mg 8-05 tablet two ity of tablet 00:00: times [place] daily [facility] furosemide 2022-0 Yes Take 1 [facility] 20 mg 8-05 tablet two ity of tablet 00:00: times [place] [address] daily Medical Branch furosemide 2022-0 Yes Take 1 [facility] 20 mg 8-05 tablet two ity of tablet 00:00: times [place] [address] daily Medical Branch furosemide 2022-0 Yes Take 1 [facility] 20 mg 8-05 tablet two ity of tablet 00:00: times [place] [address] daily Medical Branch furosemide 2022-0 Yes Take 1 [facility] 20 mg 8-05 tablet two ity of tablet 00:00: times [place] [address] daily Medical Branch furosemide 2022-0 Yes Take 1 [facility] 20 mg 8-05 tablet two ity of tablet 00:00: times [place] [address] daily Medical Branch furosemide 2022-0 Yes Take 1 [facility] 20 mg 8-05 tablet two ity of tablet 00:00: times [place] [address] daily Medical Branch furosemide 2022-0 Yes Take 1 [facility] 20 mg 8-05 tablet two ity of tablet 00:00: times [place] [address] daily Medical Branch furosemide 2022-0 3- No Take 1 [facility] ers 20 mg 8-05 07-13 tablet two ity of tablet 00:00: 00:00 times [place] 00 :00 daily Medical Branch furosemide 2022-0 3- No Take 1 [facility] ers 20 mg 8-05 07-13 tablet two ity of tablet 00:00: 00:00 times [place] 00 :00 daily Medical Branch furosemide 2022-0 3- No Take 1 [facility] ers 20 mg 8-05 07-13 tablet two ity of tablet 00:00: 00:00 times [place] 00 :00 daily Medical Branch cycloSPORIN 2021-0 Yes [id number] 25mg Take 1 [facility] E 25 mg 6-17 capsule by ity of capsule 00:00: mouth [place] 00 every 12 Medical (twelve) Branch hours. PROAIR HFA Yes [id number] INHALE 2 [facility] 90 6-17 PUFFS BY ity of mcg/actuati 00:00: MOUTH [place] on inhaler 00 EVERY 6 Medica l HOURS Branch NEEDED FOR SHORTNESS OF BREATH cycloSPORIN 2021-0 Yes [id number] 25mg Take 1 [facility] E 25 mg 6-17 capsule by ity of capsule 00:00: mouth [place] 00 every 12 Medical (twelve) Branch hours. PROAIR HFA Yes [id number] INHALE 2 [facility] 90 6-17 PUFFS BY ity of mcg/actuati 00:00: MOUTH [place] on inhaler 00 EVERY 6 Medica l HOURS Branch NEEDED FOR SHORTNESS OF BREATH cycloSPORIN 2021-0 Yes [id number] 25mg Take 1 [facility] E 25 mg 6-17 capsule by ity of capsule 00:00: mouth [place] 00 every 12 Medical (twelve) Branch hours. PROAIR HFA Yes [id number] INHALE 2 [facility] 90 6-17 PUFFS BY ity of mcg/actuati 00:00: MOUTH [place] on inhaler 00 EVERY 6 Medica l HOURS Branch NEEDED FOR SHORTNESS OF BREATH cycloSPORIN 2021-0 Yes [id number] 25mg Take 1 [facility] E 25 mg 6-17 capsule by ity of capsule 00:00: mouth [place] 00 every 12 Medical (twelve) Branch hours. PROAIR HFA Yes [id number] INHALE 2 [facility] 90 6-17 PUFFS BY ity of mcg/actuati 00:00: MOUTH [place] on inhaler 00 EVERY 6 Medica l HOURS Branch NEEDED FOR SHORTNESS OF BREATH cycloSPORIN 2021-0 Yes [id number] 25mg Take 1 [facility] E 25 mg 6-17 capsule by ity of capsule 00:00: mouth [place] 00 every 12 Medical (twelve) Branch hours. PROAIR HFA Yes [id number] INHALE 2 [facility] 90 6-17 PUFFS BY ity of mcg/actuati 00:00: MOUTH [place] on inhaler 00 EVERY 6 Medica l HOURS Branch NEEDED FOR SHORTNESS OF BREATH cycloSPORIN 2021-0 Yes [id number] 25mg Take 1 [facility] E 25 mg 6-17 capsule by ity of capsule 00:00: mouth [place] 00 every 12 Medical (twelve) Branch hours. PROAIR HFA Yes [id number] INHALE 2 [facility] 90 6-17 PUFFS BY ity of mcg/actuati 00:00: MOUTH [place] on inhaler 00 EVERY 6 Medica l HOURS Branch NEEDED FOR SHORTNESS OF BREATH cycloSPORIN 2021-0 Yes [id number] 25mg Take 1 [facility] E 25 mg 6-17 capsule by ity of capsule 00:00: mouth [place] 00 every 12 Medical (twelve) Branch hours. PROAIR HFA Yes [id number] INHALE 2 [facility] 90 6-17 PUFFS BY ity of mcg/actuati 00:00: MOUTH [place] on inhaler 00 EVERY 6 Medica l HOURS Branch NEEDED FOR SHORTNESS OF BREATH cycloSPORIN 2021-0 Yes [id number] 25mg Take 1 [facility] E 25 mg 6-17 capsule by ity of capsule 00:00: mouth [place] 00 every 12 Medical (twelve) Branch hours. PROAIR HFA Yes [id number] INHALE 2 [facility] 90 6-17 PUFFS BY ity of mcg/actuati 00:00: MOUTH [place] on inhaler 00 EVERY 6 Medica l HOURS Branch NEEDED FOR SHORTNESS OF BREATH cycloSPORIN 2021-0 Yes [id number] 25mg Take 1 [facility] E 25 mg 6-17 capsule by ity of capsule 00:00: mouth [place] 00 every 12 Medical (twelve) Branch hours. PROAIR HFA Yes [id number] INHALE 2 [facility] 90 6-17 PUFFS BY ity of mcg/actuati 00:00: MOUTH [place] on inhaler 00 EVERY 6 Medica l HOURS Branch NEEDED FOR SHORTNESS OF BREATH cycloSPORIN 2021-0 Yes [id number] 25mg Take 1 [facility] E 25 mg 6-17 capsule by ity of capsule 00:00: mouth [place] 00 every 12 Medical (twelve) Branch hours. PROAIR HFA 0 Yes [id number] INHALE 2 [facility] 90 6-17 PUFFS BY ity of mcg/actuati 00:00: MOUTH [place] on inhaler 00 EVERY 6 Medica l HOURS Branch NEEDED FOR SHORTNESS OF BREATH cycloSPORIN 2021-0 Yes [id number] 25mg Take 1 [facility] E 25 mg 6-17 capsule by ity of capsule 00:00: mouth [place] 00 every 12 Medical (twelve) Branch hours. PROAIR HFA Yes [id number] INHALE 2 [facility] 90 6-17 PUFFS BY ity of mcg/actuati 00:00: MOUTH [place] on inhaler 00 EVERY 6 Medica l HOURS Branch NEEDED FOR SHORTNESS OF BREATH cycloSPORIN 2021-0 Yes [id number] 25mg Take 1 [facility] E 25 mg 6-17 capsule by ity of capsule 00:00: mouth [place] 00 every 12 Medical (twelve) Branch hours. PROAIR HFA Yes [id number] INHALE 2 [facility] 90 6-17 PUFFS BY ity of mcg/actuati 00:00: MOUTH [place] on inhaler 00 EVERY 6 Medica l HOURS Branch NEEDED FOR SHORTNESS OF BREATH cycloSPORIN 2021-0 Yes [id number] 25mg Take 1 [facility] E 25 mg 6-17 capsule by ity of capsule 00:00: mouth [place] 00 every 12 Medical (twelve) Branch hours. PROAIR HFA Yes [id number] INHALE 2 [facility] 90 6-17 PUFFS BY ity of mcg/actuati 00:00: MOUTH [place] on inhaler 00 EVERY 6 Medica l HOURS Branch NEEDED FOR SHORTNESS OF BREATH cycloSPORIN 2021-0 Yes [id number] 25mg Take 1 [facility] E 25 mg 6-17 capsule by ity of capsule 00:00: mouth [place] 00 every 12 Medical (twelve) Branch hours. PROAIR HFA 0 Yes [id number] INHALE 2 [facility] 90 6-17 PUFFS BY ity of mcg/actuati 00:00: MOUTH [place] on inhaler 00 EVERY 6 Medica l HOURS Branch NEEDED FOR SHORTNESS OF BREATH cycloSPORIN 2021-0 Yes [id number] 25mg Take 1 [facility] E 25 mg 6-17 capsule by ity of capsule 00:00: mouth [place] 00 every 12 Medical (twelve) Branch hours. PROAIR HFA Yes [id number] INHALE 2 [facility] 90 6-17 PUFFS BY ity of mcg/actuati 00:00: MOUTH [place] on inhaler 00 EVERY 6 Medica l HOURS Branch NEEDED FOR SHORTNESS OF BREATH cycloSPORIN 2021-0 Yes [id number] 25mg Take 1 [facility] E 25 mg 6-17 capsule by ity of capsule 00:00: mouth [place] 00 every 12 Medical (twelve) Branch hours. PROAIR HFA Yes [id number] INHALE 2 [facility] 90 6-17 PUFFS BY ity of mcg/actuati 00:00: MOUTH [place] on inhaler 00 EVERY 6 Medica l HOURS Branch NEEDED FOR SHORTNESS OF BREATH cycloSPORIN 2021-0 Yes [id number] 25mg Take 1 [facility] E 25 mg 6-17 capsule by ity of capsule 00:00: mouth [place] 00 every 12 Medical (twelve) Branch hours. PROAIR HFA Yes [id number] INHALE 2 [facility] 90 6-17 PUFFS BY ity of mcg/actuati 00:00: MOUTH [place] on inhaler 00 EVERY 6 Medica l HOURS Branch NEEDED FOR SHORTNESS OF BREATH cycloSPORIN 2021-0 Yes [id number] 25mg Take 1 [facility] E 25 mg 6-17 capsule by ity of capsule 00:00: mouth [place] 00 every 12 Medical (twelve) Branch hours. PROAIR HFA Yes [id number] INHALE 2 [facility] 90 6-17 PUFFS BY ity of mcg/actuati 00:00: MOUTH [place] on inhaler 00 EVERY 6 Medica l HOURS Branch NEEDED FOR SHORTNESS OF BREATH cycloSPORIN 2021-0 Yes [id number] 25mg Take 1 [facility] E 25 mg 6-17 capsule by ity of capsule 00:00: mouth [place] 00 every 12 Medical (twelve) Branch hours. PROAIR HFA Yes [id number] INHALE 2 [facility] 90 6-17 PUFFS BY ity of mcg/actuati 00:00: MOUTH [place] on inhaler 00 EVERY 6 Medica l HOURS Branch NEEDED FOR SHORTNESS OF BREATH cycloSPORIN 2021-0 Yes [id number] 25mg Take 1 [facility] E 25 mg 6-17 capsule by ity of capsule 00:00: mouth [place] 00 every 12 Medical (twelve) Branch hours. PROAIR HFA Yes [id number] INHALE 2 [facility] 90 6-17 PUFFS BY ity of mcg/actuati 00:00: MOUTH [place] on inhaler 00 EVERY 6 Medica l HOURS Branch NEEDED FOR SHORTNESS OF BREATH cycloSPORIN 2021-0 Yes [id number] 25mg Take 1 [facility] E 25 mg 6-17 capsule by ity of capsule 00:00: mouth [place] 00 every 12 Medical (twelve) Branch hours. PROAIR HFA 0 Yes [id number] INHALE 2 [facility] 90 6-17 PUFFS BY ity of mcg/actuati 00:00: MOUTH [place] on inhaler 00 EVERY 6 Medica l HOURS Branch NEEDED FOR SHORTNESS OF BREATH cycloSPORIN 2-0 Yes [id number] 25mg Take 1 [facility] E 25 mg 6-17 capsule by ity of capsule 00:00: mouth [place] 00 every 12 Medical (twelve) Branch hours. PROAIR HFA Yes [id number] INHALE 2 [facility] 90 6-17 PUFFS BY ity of mcg/actuati 00:00: MOUTH [place] on inhaler 00 EVERY 6 Medica l HOURS Branch NEEDED FOR SHORTNESS OF BREATH cycloSPORIN 2021-0 Yes [id number] 25mg Take 1 [facility] E 25 mg 6-17 capsule by ity of capsule 00:00: mouth [place] 00 every 12 Medical (twelve) Branch hours. PROAIR HFA Yes [id number] INHALE 2 [facility] 90 6-17 PUFFS BY ity of mcg/actuati 00:00: MOUTH [place] on inhaler 00 EVERY 6 Medica l HOURS Branch NEEDED FOR SHORTNESS OF BREATH cycloSPORIN 2021-0 Yes [id number] 25mg Take 1 [facility] E 25 mg 6-17 capsule by ity of capsule 00:00: mouth [place] 00 every 12 Medical (twelve) Branch hours. PROAIR HFA Yes [id number] INHALE 2 [facility] 90 6-17 PUFFS BY [facility] mcg/actuati 00:00: MOUTH [place] on inhaler 00 EVERY 6 [facility] NEEDED FOR SHORTNESS OF BREATH cycloSPORIN 2-0 Yes [id number] 25mg Take 1 [facility] 25 mg 6-17 capsule by [facility] capsule 00:00: mouth [place] 00 every 12 [facility] (twelve) Branch hours. PROAIR HFA 0 Yes [id number] INHALE 2 [facility] 90 6-17 PUFFS BY [facility] mcg/actuati 00:00: MOUTH [place] on inhaler 00 EVERY 6 [facility] NEEDED FOR SHORTNESS OF BREATH cycloSPORIN 2022-0 Yes [id number] 25mg Take 1 [facility] 25 mg 6-17 capsule by [facility] capsule 00:00: mouth [place] 00 every 12 [facility] (twelve) Branch hours. PROAIR HFA Yes [id number] INHALE 2 [facility] 90 6-17 PUFFS BY [facility] mcg/actuati 00:00: MOUTH [place] on inhaler 00 EVERY 6 [facility] NEEDED FOR SHORTNESS OF BREATH cycloSPORIN 2-0 Yes [id number] 25mg Take 1 [facility] 25 mg 6-17 capsule by [facility] capsule 00:00: mouth [place] 00 every 12 [facility] (twelve) [facility] hours. PROAIR HFA Yes [id number] INHALE 2 [facility] 90 6-17 PUFFS BY [facility] mcg/actuati 00:00: MOUTH [place] on inhaler 00 EVERY 6 [facility] NEEDED FOR SHORTNESS OF BREATH cycloSPORIN 2021-0 Yes [id number] 25mg Take 1 [facility] 25 mg 6-17 capsule by [facility] capsule 00:00: mouth [place] 00 every 12 [facility] (twelve) Branch hours. PROAIR HFA Yes [id number] INHALE 2 [facility] 90 6-17 PUFFS BY [facility] mcg/actuati 00:00: MOUTH [place] on inhaler 00 EVERY 6 [facility] NEEDED FOR SHORTNESS OF BREATH cycloSPORIN 2021-0 Yes [id number] 25mg Take 1 [facility] 25 mg 6-17 capsule by [facility] capsule 00:00: mouth [place] 00 every 12 [facility] (twelve) Branch hours. PROAIR HFA Yes [id number] INHALE 2 [facility] 90 6-17 PUFFS BY [facility] mcg/actuati 00:00: MOUTH [place] on inhaler 00 EVERY 6 [facility] NEEDED FOR SHORTNESS OF BREATH cycloSPORIN 2021-0 Yes [id number] 25mg Take 1 [facility] 25 mg 6-17 capsule by [facility] capsule 00:00: mouth [place] 00 every 12 [facility] (twelve) [facility] hours. PROAIR HFA 0 Yes [id number] INHALE 2 [facility] 90 6-17 PUFFS BY [facility] mcg/actuati 00:00: MOUTH [place] on inhaler 00 EVERY 6 [facility] NEEDED FOR SHORTNESS OF BREATH cycloSPORIN 2022-0 Yes [id number] 25mg Take 1 [facility] 25 mg 6-17 capsule by [facility] capsule 00:00: mouth [place] 00 every 12 [facility] (twelve) [facility] hours. PROAIR HFA Yes [id number] INHALE 2 [facility] 90 6-17 PUFFS BY [facility] mcg/actuati 00:00: MOUTH [place] on inhaler 00 EVERY 6 [facility] NEEDED FOR SHORTNESS OF BREATH cycloSPORIN 2021-0 Yes [id number] 25mg Take 1 [facility] 25 mg 6-17 capsule by [facility] capsule 00:00: mouth [place] 00 every 12 [facility] (twelve) [facility] hours. PROAIR HFA Yes [id number] INHALE 2 [facility] 90 6-17 PUFFS BY [facility] mcg/actuati 00:00: MOUTH [place] on inhaler 00 EVERY 6 [facility] NEEDED FOR SHORTNESS OF BREATH cycloSPORIN 2021-0 Yes [id number] 25mg Take 1 [facility] 25 mg 6-17 capsule by [facility] capsule 00:00: mouth [place] 00 every 12 [facility] (twelve) [facility] hours. PROAIR HFA Yes [id number] INHALE 2 [facility] 90 6-17 PUFFS BY [facility] mcg/actuati 00:00: MOUTH [place] on inhaler 00 EVERY 6 [facility] NEEDED FOR SHORTNESS OF BREATH cycloSPORIN 2021-0 Yes [id number] 25mg Take 1 [facility] 25 mg 6-17 capsule by [facility] capsule 00:00: mouth [place] 00 every 12 [facility] (twelve) [facility] hours. PROAIR HFA Yes [id number] INHALE 2 [facility] 90 6-17 PUFFS BY [facility] mcg/actuati 00:00: MOUTH [place] on inhaler 00 EVERY 6 [facility] NEEDED FOR SHORTNESS OF BREATH cycloSPORIN 2021-0 Yes [id number] 25mg Take 1 [facility] 25 mg 6-17 capsule by [facility] capsule 00:00: mouth [place] 00 every 12 [facility] (twelve) Branch hours. PROAIR HFA Yes [id number] INHALE 2 [facility] 90 6-17 PUFFS BY [facility] mcg/actuati 00:00: MOUTH [place] on inhaler 00 EVERY 6 [facility] NEEDED FOR SHORTNESS OF BREATH cycloSPORIN 2021-0 Yes [id number] 25mg Take 1 [facility] 25 mg 6-17 capsule by [facility] capsule 00:00: mouth [place] 00 every 12 [facility] (twelve) Branch hours. PROAIR HFA 2022-0 Yes [id number] INHALE 2 [facility] 90 6-17 PUFFS BY [facility] mcg/actuati 00:00: MOUTH [place] on inhaler 00 EVERY 6 [facility] NEEDED FOR SHORTNESS OF BREATH cycloSPORIN 2021-0 Yes [id number] 25mg Take 1 [facility] 25 mg 6-17 capsule by [facility] capsule 00:00: mouth [place] 00 every 12 [facility] (twelve) Branch hours. PROAIR HFA Yes [id number] INHALE 2 [facility] 90 6-17 PUFFS BY [facility] mcg/actuati 00:00: MOUTH [place] on inhaler 00 EVERY 6 [facility] NEEDED FOR SHORTNESS OF BREATH cycloSPORIN 2021-0 Yes [id number] 25mg Take 1 [facility] 25 mg 6-17 capsule by [facility] capsule 00:00: mouth [place] 00 every 12 [facility] (twelve) Branch hours. PROAIR HFA Yes [id number] INHALE 2 [facility] 90 6-17 PUFFS BY [facility] mcg/actuati 00:00: MOUTH [place] on inhaler 00 EVERY 6 [facility] NEEDED FOR SHORTNESS OF BREATH cycloSPORIN 2021-0 Yes [id number] 25mg Take 1 [facility] 25 mg 6-17 capsule by [facility] capsule 00:00: mouth [place] 00 every 12 [facility] (twelve) Branch hours. PROAIR HFA Yes [id number] INHALE 2 [facility] 90 6-17 PUFFS BY [facility] mcg/actuati 00:00: MOUTH [place] on inhaler 00 EVERY 6 [facility] NEEDED FOR SHORTNESS OF BREATH cycloSPORIN 2021-0 Yes [id number] 25mg Take 1 [facility] 25 mg 6-17 capsule by [facility] capsule 00:00: mouth [place] 00 every 12 [facility] (twelve) Branch hours. PROAIR HFA Yes [id number] INHALE 2 [facility] 90 6-17 PUFFS BY [facility] mcg/actuati 00:00: MOUTH [place] on inhaler 00 EVERY 6 [facility] NEEDED FOR SHORTNESS OF BREATH cycloSPORIN 2021-0 Yes [id number] 25mg Take 1 [facility] 25 mg 6-17 capsule by [facility] capsule 00:00: mouth [place] 00 every 12 [facility] (twelve) Branch hours. PROAIR HFA Yes [id number] INHALE 2 [facility] 90 6-17 PUFFS BY [facility] mcg/actuati 00:00: MOUTH [place] on inhaler 00 EVERY 6 [facility] NEEDED FOR SHORTNESS OF BREATH cycloSPORIN 2021-0 Yes [id number] 25mg Take 1 [facility] 25 mg 6-17 capsule by [facility] capsule 00:00: mouth [place] 00 every 12 [facility] (twelve) Branch hours. PROAIR HFA Yes [id number] INHALE 2 [facility] 90 6-17 PUFFS BY [facility] mcg/actuati 00:00: MOUTH [place] on inhaler 00 EVERY 6 [facility] NEEDED FOR SHORTNESS OF BREATH cycloSPORIN 2021-0 Yes [id number] 25mg Take 1 [facility] 25 mg 6-17 capsule by [facility] capsule 00:00: mouth [place] 00 every 12 [facility] (twelve) Branch hours. PROAIR HFA Yes [id number] INHALE 2 [facility] 90 6-17 PUFFS BY [facility] mcg/actuati 00:00: MOUTH [place] on inhaler 00 EVERY 6 [facility] NEEDED FOR SHORTNESS OF BREATH cycloSPORIN 2021-0 Yes [id number] 25mg Take 1 [facility] 25 mg 6-17 capsule by [facility] capsule 00:00: mouth [place] 00 every 12 Medical (twelve) Branch hours. PROAIR HFA Yes [id number] INHALE 2 [facility] 90 6-17 PUFFS BY [facility] mcg/actuati 00:00: MOUTH [place] on inhaler 00 EVERY 6 [facility] NEEDED FOR SHORTNESS OF BREATH cycloSPORIN 2021-0 Yes [id number] 25mg Take 1 [facility] 25 mg 6-17 capsule by [facility] capsule 00:00: mouth [place] 00 every 12 [facility] (twelve) Branch hours. PROAIR HFA Yes [id number] INHALE 2 [facility] 90 6-17 PUFFS BY [facility] mcg/actuati 00:00: MOUTH [place] on inhaler 00 EVERY 6 [facility] NEEDED FOR SHORTNESS OF BREATH cycloSPORIN 2021-0 Yes [id number] 25mg Take 1 [facility] 25 mg 6-17 capsule by [facility] capsule 00:00: mouth [place] 00 every 12 [facility] (twelve) Branch hours. PROAIR HFA Yes [id number] INHALE 2 [facility] 90 6-17 PUFFS BY [facility] mcg/actuati 00:00: MOUTH [place] on inhaler 00 EVERY 6 [facility] NEEDED FOR SHORTNESS OF BREATH cycloSPORIN 2-0 Yes [id number] 25mg Take 1 [facility] 25 mg 6-17 capsule by [facility] capsule 00:00: mouth [place] 00 every 12 [facility] (twelve) Branch hours. PROAIR HFA Yes [id number] INHALE 2 [facility] 90 6-17 PUFFS BY [facility] of mcg/actuati 00:00: MOUTH [place] on inhaler 00 EVERY 6 [facility] NEEDED FOR SHORTNESS OF BREATH cycloSPORIN 2022-0 Yes [id number] 25mg Take 1 [facility] 25 mg 6-17 capsule by [facility] capsule 00:00: mouth [place] 00 every 12 [facility] (twelve) Branch hours. PROAIR HFA Yes [id number] INHALE 2 [facility] 90 6-17 PUFFS BY [facility] of mcg/actuati 00:00: MOUTH [place] on inhaler 00 EVERY 6 [facility] NEEDED FOR SHORTNESS OF BREATH cycloSPORIN 2021-0 Yes [id number] 25mg Take 1 [facility] 25 mg 6-17 capsule by [facility] of capsule 00:00: mouth [place] 00 every 12 [facility] (twelve) Branch hours. PROAIR HFA Yes [id number] INHALE 2 [facility] 90 6-17 PUFFS BY [facility] of mcg/actuati 00:00: MOUTH [place] on inhaler 00 EVERY 6 [facility] NEEDED FOR SHORTNESS OF BREATH cycloSPORIN 2021-0 Yes [id number] 25mg Take 1 [facility] 25 mg 6-17 capsule by [facility] of capsule 00:00: mouth [place] 00 every 12 [facility] (twelve) Branch hours. PROAIR HFA Yes [id number] INHALE 2 [facility] 90 6-17 PUFFS BY [facility] of mcg/actuati 00:00: MOUTH [place] on inhaler 00 EVERY 6 [facility] NEEDED FOR SHORTNESS OF BREATH cycloSPORIN 2021-0 Yes [id number] 25mg Take 1 [facility] 25 mg 6-17 capsule by [facility] of capsule 00:00: mouth [place] 00 every 12 [facility] (twelve) Branch hours. PROAIR HFA Yes [id number] INHALE 2 [facility] 90 6-17 PUFFS BY [facility] of mcg/actuati 00:00: MOUTH [place] on inhaler 00 EVERY 6 [facility] NEEDED FOR SHORTNESS OF BREATH cycloSPORIN 2021-0 Yes [id number] 25mg Take 1 [facility] 25 mg 6-17 capsule by [facility] of capsule 00:00: mouth [place] 00 every 12 [facility] (twelve) Branch hours. PROAIR HFA Yes [id number] INHALE 2 [facility] 90 6-17 PUFFS BY [facility] of mcg/actuati 00:00: MOUTH [place] on inhaler 00 EVERY 6 [facility] NEEDED FOR SHORTNESS OF BREATH cycloSPORIN 2021-0 Yes [id number] 25mg Take 1 [facility] 25 mg 6-17 capsule by [facility] of capsule 00:00: mouth [place] 00 every 12 [facility] (twelve) Branch hours. PROAIR HFA Yes [id number] INHALE 2 [facility] 90 6-17 PUFFS BY [facility] of mcg/actuati 00:00: MOUTH [place] on inhaler 00 EVERY 6 [facility] NEEDED FOR SHORTNESS OF BREATH cycloSPORIN 2021-0 Yes [id number] 25mg Take 1 [facility] 25 mg 6-17 capsule by [facility] of capsule 00:00: mouth [place] 00 every 12 [facility] (twelve) Branch hours. PROAIR HFA Yes [id number] INHALE 2 [facility] 90 6-17 PUFFS BY [facility] of mcg/actuati 00:00: MOUTH [place] on inhaler 00 EVERY 6 [facility] NEEDED FOR SHORTNESS OF BREATH cycloSPORIN 2021-0 Yes [id number] 25mg Take 1 [facility] 25 mg 6-17 capsule by [facility] of capsule 00:00: mouth [place] 00 every 12 Medical (twelve) Branch hours. PROAIR HFA Yes [id number] INHALE 2 [facility] 90 6-17 PUFFS BY [facility] of mcg/actuati 00:00: MOUTH [place] on inhaler 00 EVERY 6 [facility] NEEDED FOR SHORTNESS OF BREATH cycloSPORIN 2021-0 Yes [id number] 25mg Take 1 [facility] 25 mg 6-17 capsule by [facility] of capsule 00:00: mouth [place] 00 every 12 Medical (twelve) Branch hours. PROAIR HFA Yes [id number] INHALE 2 [facility] 90 6-17 PUFFS BY [facility] of mcg/actuati 00:00: MOUTH [place] on inhaler 00 EVERY 6 [facility] HOU[facility] NEEDED FOR SHORTNESS OF BREATH cycloSPORIN 2021-0 Yes [id number] 25mg Take 1 [facility] 25 mg 6-17 capsule by [facility] of capsule 00:00: mouth [place] 00 every 12 Medical (twelve) Branch hours. PROAIR HFA Yes [id number] INHALE 2 [facility] 90 6-17 PUFFS BY [facility] of mcg/actuati 00:00: MOUTH [place] on inhaler 00 EVERY 6 [facility] NEEDED FOR SHORTNESS OF BREATH cycloSPORIN 2021-0 Yes [id number] 25mg Take 1 [facility] 25 mg 6-17 capsule by [facility] of capsule 00:00: mouth [place] 00 every 12 Medical (twelve) Branch hours. PROAIR HFA Yes [id number] INHALE 2 [facility] 90 6-17 PUFFS BY [facility] of mcg/actuati 00:00: MOUTH [place] on inhaler 00 EVERY 6 [facility] HOU[facility] NEEDED FOR SHORTNESS OF BREATH cycloSPORIN 2021-0 Yes [id number] 25mg Take 1 [facility] 25 mg 6-17 capsule by [facility] of capsule 00:00: mouth [place] 00 every 12 Medical (twelve) Branch hours. PROAIR HFA Yes [id number] INHALE 2 [facility] 90 6-17 PUFFS BY [facility] of mcg/actuati 00:00: MOUTH [place] on inhaler 00 EVERY 6 [facility] NEEDED FOR SHORTNESS OF BREATH cycloSPORIN 2021-0 Yes [id number] 25mg Take 1 [facility] 25 mg 6-17 capsule by [facility] of capsule 00:00: mouth [place] 00 every 12 Medical (twelve) Branch hours. PROAIR HFA Yes [id number] INHALE 2 [facility] 90 6-17 PUFFS BY [facility] of mcg/actuati 00:00: MOUTH [place] on inhaler 00 EVERY 6 [facility] NEEDED FOR SHORTNESS OF BREATH cycloSPORIN 2021-0 Yes [id number] 25mg Take 1 [facility] 25 mg 6-17 capsule by [facility] of capsule 00:00: mouth [place] 00 every 12 [facility] (twelve) Branch hours. PROAIR HFA 0 Yes [id number] INHALE 2 [facility] 90 6-17 PUFFS BY [facility] of mcg/actuati 00:00: MOUTH [place] on inhaler 00 EVERY 6 [facility] NEEDED FOR SHORTNESS OF BREATH cycloSPORIN 2021-0 Yes [id number] 25mg Take 1 [facility] 25 mg 6-17 capsule by [facility] of capsule 00:00: mouth [place] 00 every 12 [facility] (twelve) Branch hours. PROAIR HFA Yes [id number] INHALE 2 [facility] 90 6-17 PUFFS BY [facility] of mcg/actuati 00:00: MOUTH [place] on inhaler 00 EVERY 6 [facility] NEEDED FOR SHORTNESS OF BREATH cycloSPORIN 2021-0 Yes [id number] 25mg Take 1 [facility] 25 mg 6-17 capsule by [facility] of capsule 00:00: mouth [place] 00 every 12 Medical (twelve) Branch hours. PROAIR HFA Yes [id number] INHALE 2 [facility] 90 6-17 PUFFS BY [facility] of mcg/actuati 00:00: MOUTH [place] on inhaler 00 EVERY 6 [facility] NEEDED FOR SHORTNESS OF BREATH cycloSPORIN 2021-0 Yes [id number] 25mg Take 1 [facility] 25 mg 6-17 capsule by [facility] of capsule 00:00: mouth [place] 00 every 12 Medical (twelve) Branch hours. PROAIR HFA Yes [id number] INHALE 2 [facility] 90 6-17 PUFFS BY [facility] of mcg/actuati 00:00: MOUTH [place] on inhaler 00 EVERY 6 [facility] NEEDED FOR SHORTNESS OF BREATH cycloSPORIN 2021-0 Yes [id number] 25mg Take 1 [facility] 25 mg 6-17 capsule by [facility] of capsule 00:00: mouth [place] 00 every 12 Medical (twelve) Branch hours. PROAIR HFA 0 Yes [id number] INHALE 2 [facility] 90 6-17 PUFFS BY [facility]y of mcg/actuati 00:00: MOUTH [place] on inhaler 00 EVERY 6 [facility] HOU[facility] NEEDED FOR SHORTNESS OF BREATH cycloSPORIN 2021-0 Yes [id number] 25mg Take 1 [facility] 25 mg 6-17 capsule by [facility] of capsule 00:00: mouth [place] 00 every 12 [facility] (twelve) Branch hours. PROAIR HFA 0 Yes [id number] INHALE 2 [facility] 90 6-17 PUFFS BY [facility] of mcg/actuati 00:00: MOUTH [place] on inhaler 00 EVERY 6 [facility] NEEDED FOR SHORTNESS OF BREATH cycloSPORIN 2021-0 Yes [id number] 25mg Take 1 [facility] 25 mg 6-17 capsule by [facility] of capsule 00:00: mouth [place] 00 every 12 [facility] (twelve) Branch hours. PROAIR HFA Yes [id number] INHALE 2 [facility] 90 6-17 PUFFS BY [facility]y of mcg/actuati 00:00: MOUTH [place] on inhaler 00 EVERY 6 [facility] HOU[facility] NEEDED FOR SHORTNESS OF BREATH cycloSPORIN 2021-0 Yes [id number] 25mg Take 1 [facility] 25 mg 6-17 capsule by [facility] of capsule 00:00: mouth [place] 00 every 12 Medical (twelve) Branch hours. PROAIR HFA Yes [id number] INHALE 2 [facility] 90 6-17 PUFFS BY [facility] of mcg/actuati 00:00: MOUTH [place] on inhaler 00 EVERY 6 [facility] NEEDED FOR SHORTNESS OF BREATH cycloSPORIN 2021-0 Yes [id number] 25mg Take 1 [facility] 25 mg 6-17 capsule by [facility] of capsule 00:00: mouth [place] 00 every 12 [facility] (twelve) Branch hours. PROAIR HFA Yes [id number] INHALE 2 [facility] 90 6-17 PUFFS BY [facility]y of mcg/actuati 00:00: MOUTH [place] on inhaler 00 EVERY 6 [facility] HOU[facility] NEEDED FOR SHORTNESS OF BREATH cycloSPORIN 2021-0 Yes [id number] 25mg Take 1 [facility] 25 mg 6-17 capsule by [facility] of capsule 00:00: mouth [place] 00 every 12 Medical (twelve) Branch hours. PROAIR HFA Yes [id number] INHALE 2 [facility] 90 6-17 PUFFS BY [facility]y of mcg/actuati 00:00: MOUTH [place] on inhaler 00 EVERY 6 [facility] NEEDED FOR SHORTNESS OF BREATH cycloSPORIN 2021-0 Yes [id number] 25mg Take 1 [facility] 25 mg 6-17 capsule by [facility] of capsule 00:00: mouth [place] 00 every 12 [facility] (twelve) Branch hours. PROAIR HFA Yes [id number] INHALE 2 [facility] 90 6-17 PUFFS BY [facility]y of mcg/actuati 00:00: MOUTH [place] on inhaler 00 EVERY 6 [facility] NEEDED FOR SHORTNESS OF BREATH cycloSPORIN 2-0 Yes [id number] 25mg Take 1 [facility] 25 mg 6-17 capsule by [facility] of capsule 00:00: mouth [place] 00 every 12 Medical (twelve) Branch hours. PROAIR HFA Yes [id number] INHALE 2 [facility] 90 6-17 PUFFS BY [facility]y of mcg/actuati 00:00: MOUTH [place] on inhaler 00 EVERY 6 [facility] HOU[facility] NEEDED FOR SHORTNESS OF BREATH cycloSPORIN 2021-0 Yes [id number] 25mg Take 1 [facility] 25 mg 6-17 capsule by [facility] of capsule 00:00: mouth [place] 00 every 12 Medical (twelve) Branch hours. PROAIR HFA Yes [id number] INHALE 2 [facility] 90 6-17 PUFFS BY [facility]y of mcg/actuati 00:00: MOUTH [place] on inhaler 00 EVERY 6 [facility] HOU[facility] NEEDED FOR SHORTNESS OF BREATH cycloSPORIN 2021-0 Yes [id number] 25mg Take 1 [facility] 25 mg 6-17 capsule by [facility] of capsule 00:00: mouth [place] 00 every 12 Medical (twelve) Branch hours. PROAIR HFA Yes [id number] INHALE 2 [facility] 90 6-17 PUFFS BY [facility]y of mcg/actuati 00:00: MOUTH [place] on inhaler 00 EVERY 6 [facility] NEEDED FOR SHORTNESS OF BREATH cycloSPORIN 2021-0 Yes [id number] 25mg Take 1 [facility] 25 mg 6-17 capsule by [facility] of capsule 00:00: mouth [place] 00 every 12 [facility] (twelve) Branch hours. PROAIR HFA Yes [id number] INHALE 2 [facility] 90 6-17 PUFFS BY [facility]y of mcg/actuati 00:00: MOUTH [place] on inhaler 00 EVERY 6 [facility] HOU[facility] NEEDED FOR SHORTNESS OF BREATH PROAIR HFA 0 Yes [id number] INHALE 2 [facility] 90 6-17 PUFFS BY [facility]y of mcg/actuati 00:00: MOUTH [place] on inhaler 00 EVERY 6 [facility] HOU[facility] NEEDED FOR SHORTNESS OF BREATH PROAIR HFA 0 Yes [id number] INHALE 2 [facility] 90 6-17 PUFFS BY [facility] of mcg/actuati 00:00: MOUTH [place] on inhaler 00 EVERY 6 [facility] NEEDED FOR SHORTNESS OF BREATH PROAIR HFA Yes [id number] INHALE 2 [facility] 90 6-17 PUFFS BY [facility]y of mcg/actuati 00:00: MOUTH [place] on inhaler 00 EVERY 6 [facility] NEEDED FOR SHORTNESS OF BREATH PROAIR HFA 0 Yes [id number] INHALE 2 [facility] 90 6-17 PUFFS BY [facility]y of mcg/actuati 00:00: MOUTH [place] on inhaler 00 EVERY 6 [facility] NEEDED FOR SHORTNESS OF BREATH PROAIR HFA 0 Yes [id number] INHALE 2 [facility] 90 6-17 PUFFS BY [facility]y of mcg/actuati 00:00: MOUTH [place] on inhaler 00 EVERY 6 [facility] NEEDED FOR SHORTNESS OF BREATH PROAIR HFA Yes [id number] INHALE 2 [facility] 90 6-17 PUFFS BY [facility]y of mcg/actuati 00:00: MOUTH [place] on inhaler 00 EVERY 6 [facility] NEEDED FOR SHORTNESS OF BREATH PROAIR HFA 0 Yes [id number] INHALE 2 [facility] 90 6-17 PUFFS BY ity of mcg/actuati 00:00: MOUTH [place] on inhaler 00 EVERY 6 [facility] NEEDED FOR SHORTNESS OF BREATH PROAIR HFA 0 Yes [id number] INHALE 2 [facility] 90 6-17 PUFFS BY ity of mcg/actuati 00:00: MOUTH [place] on inhaler 00 EVERY 6 [facility] NEEDED FOR SHORTNESS OF BREATH PROAIR HFA 0 Yes [id number] INHALE 2 [facility] 90 6-17 PUFFS BY ity of mcg/actuati 00:00: MOUTH [place] on inhaler 00 EVERY 6 [facility] NEEDED FOR SHORTNESS OF BREATH PROAIR HFA 0 Yes [id number] INHALE 2 [facility] 90 6-17 PUFFS BY ity of mcg/actuati 00:00: MOUTH [place] on inhaler 00 EVERY 6 [facility] NEEDED FOR SHORTNESS OF BREATH PROAIR HFA 0 Yes [id number] INHALE 2 [facility] 90 6-17 PUFFS BY ity of mcg/actuati 00:00: MOUTH [place] on inhaler 00 EVERY 6 [facility] NEEDED FOR SHORTNESS OF BREATH PROAIR HFA 0 Yes [id number] INHALE 2 [facility] 90 6-17 PUFFS BY ity of mcg/actuati 00:00: MOUTH [place] on inhaler 00 EVERY 6 [facility] NEEDED FOR SHORTNESS OF BREATH PROAIR HFA 0 Yes [id number] INHALE 2 [facility] 90 6-17 PUFFS BY ity of mcg/actuati 00:00: MOUTH [place] on inhaler 00 EVERY 6 [facility] NEEDED FOR SHORTNESS OF BREATH PROAIR HFA 0 Yes [id number] INHALE 2 [facility] 90 6-17 PUFFS BY ity of mcg/actuati 00:00: MOUTH [place] on inhaler 00 EVERY 6 [facility] NEEDED FOR SHORTNESS OF BREATH PROAIR HFA 0 Yes [id number] INHALE 2 [facility] 90 6-17 PUFFS BY ity of mcg/actuati 00:00: MOUTH [place] on inhaler 00 EVERY 6 [facility] NEEDED FOR SHORTNESS OF BREATH PROAIR HFA 0 Yes [id number] INHALE 2 [facility] 90 6-17 PUFFS BY ity of mcg/actuati 00:00: MOUTH [place] on inhaler 00 EVERY 6 [facility] NEEDED FOR SHORTNESS OF BREATH PROAIR HFA 0 Yes [id number] INHALE 2 [facility] 90 6-17 PUFFS BY ity of mcg/actuati 00:00: MOUTH [place] on inhaler 00 EVERY 6 [facility] NEEDED FOR SHORTNESS OF BREATH PROAIR HFA 0 Yes [id number] INHALE 2 [facility] 90 6-17 PUFFS BY ity of mcg/actuati 00:00: MOUTH [place] on inhaler 00 EVERY 6 [facility] NEEDED FOR SHORTNESS OF BREATH PROAIR HFA 0 Yes [id number] INHALE 2 [facility] 90 6-17 PUFFS BY ity of mcg/actuati 00:00: MOUTH [place] on inhaler 00 EVERY 6 [facility] NEEDED FOR SHORTNESS OF BREATH PROAIR HFA 0 Yes [id number] INHALE 2 [facility] 90 6-17 PUFFS BY ity of mcg/actuati 00:00: MOUTH [place] on inhaler 00 EVERY 6 [facility] NEEDED FOR SHORTNESS OF BREATH PROAIR HFA 0 Yes [id number] INHALE 2 [facility] 90 6-17 PUFFS BY ity of mcg/actuati 00:00: MOUTH [place] on inhaler 00 EVERY 6 [facility] NEEDED FOR SHORTNESS OF BREATH PROAIR HFA Yes [id number] INHALE 2 [facility] 90 6-17 PUFFS BY ity of mcg/actuati 00:00: MOUTH [place] on inhaler 00 EVERY 6 [facility] NEEDED FOR SHORTNESS OF BREATH PROAIR HFA Yes [id number] INHALE 2 [facility] 90 6-17 PUFFS BY ity of mcg/actuati 00:00: MOUTH [place] on inhaler 00 EVERY 6 [facility] NEEDED FOR SHORTNESS OF BREATH PROAIR HFA Yes [id number] INHALE 2 [facility] 90 6-17 PUFFS BY ity of mcg/actuati 00:00: MOUTH [place] on inhaler 00 EVERY 6 [facility] HOU[facility] NEEDED FOR SHORTNESS OF BREATH PROAIR HFA Yes [id number] INHALE 2 [facility] 90 6-17 PUFFS BY ity of mcg/actuati 00:00: MOUTH [place] on inhaler 00 EVERY 6 [facility] NEEDED FOR SHORTNESS OF BREATH PROAIR HFA Yes [id number] INHALE 2 [facility] 90 6-17 PUFFS BY ity of mcg/actuati 00:00: MOUTH [place] on inhaler 00 EVERY 6 [facility] NEEDED FOR SHORTNESS OF BREATH PROAIR HFA Yes [id number] INHALE 2 [facility] 90 6-17 PUFFS BY ity of mcg/actuati 00:00: MOUTH [place] on inhaler 00 EVERY 6 [facility] NEEDED FOR SHORTNESS OF BREATH PROAIR HFA 0 Yes [id number] INHALE 2 [facility] 90 6-17 PUFFS BY ity of mcg/actuati 00:00: MOUTH [place] on inhaler 00 EVERY 6 [facility] NEEDED FOR SHORTNESS OF BREATH PROAIR HFA Yes [id number] INHALE 2 [facility] 90 6-17 PUFFS BY ity of mcg/actuati 00:00: MOUTH [place] on inhaler 00 EVERY 6 [facility] NEEDED FOR SHORTNESS OF BREATH PROAIR HFA 0 Yes [id number] INHALE 2 [facility] 90 6-17 PUFFS BY ity of mcg/actuati 00:00: MOUTH [place] on inhaler 00 EVERY 6 [facility] NEEDED FOR SHORTNESS OF BREATH PROAIR HFA Yes [id number] INHALE 2 [facility] 90 6-17 PUFFS BY ity of mcg/actuati 00:00: MOUTH [place] on inhaler 00 EVERY 6 [facility] NEEDED FOR SHORTNESS OF BREATH PROAIR HFA 0 Yes [id number] INHALE 2 [facility] 90 6-17 PUFFS BY ity of mcg/actuati 00:00: MOUTH [place] on inhaler 00 EVERY 6 [facility] NEEDED FOR SHORTNESS OF BREATH PROAIR HFA Yes [id number] INHALE 2 [facility] 90 6-17 PUFFS BY ity of mcg/actuati 00:00: MOUTH [place] on inhaler 00 EVERY 6 [facility] NEEDED FOR SHORTNESS OF BREATH PROAIR HFA 0 Yes [id number] INHALE 2 [facility] 90 6-17 PUFFS BY ity of mcg/actuati 00:00: MOUTH [place] on inhaler 00 EVERY 6 [facility] NEEDED FOR SHORTNESS OF BREATH PROAIR HFA 0 Yes [id number] INHALE 2 [facility] 90 6-17 PUFFS BY ity of mcg/actuati 00:00: MOUTH [place] on inhaler 00 EVERY 6 [facility] NEEDED FOR SHORTNESS OF BREATH PROAIR HFA 0 Yes [id number] INHALE 2 [facility] 90 6-17 PUFFS BY ity of mcg/actuati 00:00: MOUTH [place] on inhaler 00 EVERY 6 [facility] NEEDED FOR SHORTNESS OF BREATH PROAIR HFA 0 Yes [id number] INHALE 2 [facility] 90 6-17 PUFFS BY ity of mcg/actuati 00:00: MOUTH [place] on inhaler 00 EVERY 6 [facility] NEEDED FOR SHORTNESS OF BREATH PROAIR HFA 0 Yes [id number] INHALE 2 [facility] 90 6-17 PUFFS BY ity of mcg/actuati 00:00: MOUTH [place] on inhaler 00 EVERY 6 [facility] NEEDED FOR SHORTNESS OF BREATH PROAIR HFA 0 Yes [id number] INHALE 2 [facility] 90 6-17 PUFFS BY ity of mcg/actuati 00:00: MOUTH [place] on inhaler 00 EVERY 6 [facility] NEEDED FOR SHORTNESS OF BREATH PROAIR HFA 0 Yes [id number] INHALE 2 [facility] 90 6-17 PUFFS BY ity of mcg/actuati 00:00: MOUTH [place] on inhaler 00 EVERY 6 [facility] NEEDED FOR SHORTNESS OF BREATH PROAIR HFA 0 Yes [id number] INHALE 2 [facility] 90 6-17 PUFFS BY ity of mcg/actuati 00:00: MOUTH [place] on inhaler 00 EVERY 6 [facility] NEEDED FOR SHORTNESS OF BREATH PROAIR HFA 0 Yes [id number] INHALE 2 [facility] 90 6-17 PUFFS BY ity of mcg/actuati 00:00: MOUTH [place] on inhaler 00 EVERY 6 [facility] NEEDED FOR SHORTNESS OF BREATH PROAIR HFA 0 Yes [id number] INHALE 2 [facility] 90 6-17 PUFFS BY [facility] mcg/actuati 00:00: MOUTH [place] on inhaler 00 EVERY 6 [facility] NEEDED FOR SHORTNESS OF BREATH PROAIR HFA 0 Yes [id number] INHALE 2 [facility] 90 6-17 PUFFS BY [facility] mcg/actuati 00:00: MOUTH [place] on inhaler 00 EVERY 6 [facility] NEEDED FOR SHORTNESS OF BREATH PROAIR HFA 0 Yes [id number] INHALE 2 [facility] 90 6-17 PUFFS BY [facility] mcg/actuati 00:00: MOUTH [place] on inhaler 00 EVERY 6 [facility] NEEDED FOR SHORTNESS OF BREATH PROAIR HFA 0 Yes [id number] INHALE 2 [facility] 90 6-17 PUFFS BY [facility] mcg/actuati 00:00: MOUTH [place] on inhaler 00 EVERY 6 [facility] NEEDED FOR SHORTNESS OF BREATH PROAIR HFA 0 Yes [id number] INHALE 2 [facility] 90 6-17 PUFFS BY [facility] mcg/actuati 00:00: MOUTH [place] on inhaler 00 EVERY 6 [facility] NEEDED FOR SHORTNESS OF BREATH PROAIR HFA 0 Yes [id number] INHALE 2 [facility] 90 6-17 PUFFS BY [facility] mcg/actuati 00:00: MOUTH [place] on inhaler 00 EVERY 6 [facility] NEEDED FOR SHORTNESS OF BREATH PROAIR HFA 0 Yes [id number] INHALE 2 [facility] 90 6-17 PUFFS BY [facility] mcg/actuati 00:00: MOUTH [place] on inhaler 00 EVERY 6 [facility] NEEDED FOR SHORTNESS OF BREATH PROAIR HFA Yes [id number] INHALE 2 [facility] 90 6-17 PUFFS BY [facility] mcg/actuati 00:00: MOUTH [place] on inhaler 00 EVERY 6 [facility] NEEDED FOR SHORTNESS OF BREATH PROAIR HFA Yes [id number] INHALE 2 [facility] 90 6-17 PUFFS BY [facility] mcg/actuati 00:00: MOUTH [place] on inhaler 00 EVERY 6 [facility] NEEDED FOR SHORTNESS OF BREATH PROAIR HFA Yes [id number] INHALE 2 [facility] 90 6-17 PUFFS BY [facility] mcg/actuati 00:00: MOUTH [place] on inhaler 00 EVERY 6 [facility] NEEDED FOR SHORTNESS OF BREATH PROAIR HFA Yes [id number] INHALE 2 [facility] 90 6-17 PUFFS BY [facility] mcg/actuati 00:00: MOUTH [place] on inhaler 00 EVERY 6 [facility] NEEDED FOR SHORTNESS OF BREATH PROAIR HFA Yes [id number] INHALE 2 [facility] 90 6-17 PUFFS BY [facility] mcg/actuati 00:00: MOUTH [place] on inhaler 00 EVERY 6 [facility] NEEDED FOR SHORTNESS OF BREATH PROAIR HFA Yes [id number] INHALE 2 [facility] 90 6-17 PUFFS BY [facility] mcg/actuati 00:00: MOUTH [place] on inhaler 00 EVERY 6 [facility] NEEDED FOR SHORTNESS OF BREATH PROAIR HFA Yes [id number] INHALE 2 [facility] 90 6-17 PUFFS BY [facility] mcg/actuati 00:00: MOUTH [place] on inhaler 00 EVERY 6 [facility] NEEDED FOR SHORTNESS OF BREATH PROAIR HFA 0 Yes [id number] INHALE 2 [facility] 90 6-17 PUFFS BY [facility] mcg/actuati 00:00: MOUTH [place] on inhaler 00 EVERY 6 [facility] NEEDED FOR SHORTNESS OF BREATH PROAIR HFA 0 Yes [id number] INHALE 2 [facility] 90 6-17 PUFFS BY [facility] mcg/actuati 00:00: MOUTH [place] on inhaler 00 EVERY 6 [facility] NEEDED FOR SHORTNESS OF BREATH PROAIR HFA Yes [id number] INHALE 2 [facility] 90 6-17 PUFFS BY [facility] mcg/actuati 00:00: MOUTH [place] on inhaler 00 EVERY 6 [facility] NEEDED FOR SHORTNESS OF BREATH PROAIR HFA Yes [id number] INHALE 2 [facility] 90 6-17 PUFFS BY [facility] mcg/actuati 00:00: MOUTH [place] on inhaler 00 EVERY 6 [facility] NEEDED FOR SHORTNESS OF BREATH PROAIR HFA Yes [id number] INHALE 2 [facility] 90 6-17 PUFFS BY [facility] mcg/actuati 00:00: MOUTH [place] on inhaler 00 EVERY 6 [facility] NEEDED FOR SHORTNESS OF BREATH PROAIR HFA Yes [id number] INHALE 2 [facility] 90 6-17 PUFFS BY [facility] mcg/actuati 00:00: MOUTH [place] on inhaler 00 EVERY 6 [facility] NEEDED FOR SHORTNESS OF BREATH PROAIR HFA Yes [id number] INHALE 2 [facility] 90 6-17 PUFFS BY [facility] mcg/actuati 00:00: MOUTH [place] on inhaler 00 EVERY 6 [facility] NEEDED FOR SHORTNESS OF BREATH PROAIR HFA Yes [id number] INHALE 2 [facility] 90 6-17 PUFFS BY [facility] mcg/actuati 00:00: MOUTH [place] on inhaler 00 EVERY 6 [facility] NEEDED FOR SHORTNESS OF BREATH PROAIR HFA Yes [id number] INHALE 2 [facility] 90 6-17 PUFFS BY [facility] mcg/actuati 00:00: MOUTH [place] on inhaler 00 EVERY 6 [facility] NEEDED FOR SHORTNESS OF BREATH PROAIR HFA 0 Yes [id number] INHALE 2 [facility] 90 6-17 PUFFS BY [facility] mcg/actuati 00:00: MOUTH [place] on inhaler 00 EVERY 6 [facility] NEEDED FOR SHORTNESS OF BREATH PROAIR HFA Yes [id number] INHALE 2 [facility] 90 6-17 PUFFS BY [facility] mcg/actuati 00:00: MOUTH [place] on inhaler 00 EVERY 6 [facility] NEEDED FOR SHORTNESS OF BREATH cycloSPORIN 2021-0 3- No [id number] 25mg Take 1 [facility] 25 mg 6-17 06-23 capsule by [facility] o f capsule 00:00: 00:00 mouth [place] 00 :00 every 12 [facility] (tw[facility]) [facility] hours. cycloSPORIN 3- No [id number] 25mg Take 1 [facility] 25 mg 6-17 06-23 capsule by [facility] o f capsule 00:00: 00:00 mouth [place] 00 :00 every 12 [facility] (twelve) [facility] hours. cycloSPORIN 2022- No [id number] 25mg Take 1 [facility] 25 mg 6-17 06-23 capsule by [facility] o f capsule 00:00: 00:00 mouth [place] 00 :00 every 12 [facility] (twelve) [facility] hours. MYCOPHENOLA Yes TAKE 3 [facility] TE SODIUM 6-02 TABLETS BY [facility] of 180 mg EC 00:00: MOUTH [place] tablet 00 EVERY 12 [facility] HOU[facility] MYFORTIC Yes TAKE 3 [facility] 180 mg 6-02 TABLETS BY [facility] of tablet 00:00: MOUTH [place] 00 EVERY 12 [facility] MYCOPHENOLA Yes TAKE 3 [facility] TE SODIUM 6-02 TABLETS BY [facility] of 180 mg EC 00:00: MOUTH [place] tablet 00 EVERY 12 [facility] MYFORTIC 0 Yes TAKE 3 [facility] 180 mg 6-02 TABLETS BY [facility] of tablet 00:00: MOUTH [place] 00 EVERY 12 [facility] MYCOPHENOLA 0 Yes TAKE 3 [facility] TE SODIUM 6-02 TABLETS BY [facility] of 180 mg EC 00:00: MOUTH [place] tablet 00 EVERY 12 [facility] MYFORTIC 0 Yes TAKE 3 [facility] 180 mg 6-02 TABLETS BY [facility] of tablet 00:00: MOUTH [place] 00 EVERY 12 [facility] MYCOPHENOLA 0 Yes TAKE 3 [facility] TE SODIUM 6-02 TABLETS BY [facility] of 180 mg EC 00:00: MOUTH [place] tablet 00 EVERY 12 [facility] MYFORTIC 0 Yes TAKE 3 [facility] 180 mg 6-02 TABLETS BY [facility] of tablet 00:00: MOUTH [place] 00 EVERY 12 [facility] MYCOPHENOLA 0 Yes TAKE 3 [facility] TE SODIUM 6-02 TABLETS BY [facility] of 180 mg EC 00:00: MOUTH [place] tablet 00 EVERY 12 [facility] MYFORTIC 0 Yes TAKE 3 [facility] 180 mg 6-02 TABLETS BY [facility] of tablet 00:00: MOUTH [place] 00 EVERY 12 [facility] MYCOPHENOLA 0 Yes TAKE 3 [facility] TE SODIUM 6-02 TABLETS BY [facility] of 180 mg EC 00:00: MOUTH [place] tablet 00 EVERY 12 [facility] MYFORTIC 0 Yes TAKE 3 [facility] 180 mg 6-02 TABLETS BY [facility] of tablet 00:00: MOUTH [place] 00 EVERY 12 [facility] MYCOPHENOLA 0 Yes TAKE 3 [facility] TE SODIUM 6-02 TABLETS BY [facility] of 180 mg EC 00:00: MOUTH [place] tablet 00 EVERY 12 [facility] MYFORTIC 0 Yes TAKE 3 [facility] 180 mg 6-02 TABLETS BY [facility] of tablet 00:00: MOUTH [place] 00 EVERY 12 [facility] MYCOPHENOLA Yes TAKE 3 [facility] TE SODIUM 6-02 TABLETS BY [facility] of 180 mg EC 00:00: MOUTH [place] tablet 00 EVERY 12 [facility] MYFORTIC Yes TAKE 3 [facility] 180 mg 6-02 TABLETS BY [facility] of tablet 00:00: MOUTH [place] 00 EVERY 12 [facility] MYCOPHENOLA Yes TAKE 3 [facility] TE SODIUM 6-02 TABLETS BY [facility] of 180 mg EC 00:00: MOUTH [place] tablet 00 EVERY 12 [facility] MYFORTIC 0 Yes TAKE 3 [facility] 180 mg 6-02 TABLETS BY [facility] of tablet 00:00: MOUTH [place] 00 EVERY 12 [facility] MYCOPHENOLA 0 Yes TAKE 3 [facility] TE SODIUM 6-02 TABLETS BY [facility] of 180 mg EC 00:00: MOUTH [place] tablet 00 EVERY 12 [facility] MYFORTIC 0 Yes TAKE 3 [facility] 180 mg 6-02 TABLETS BY [facility] of tablet 00:00: MOUTH [place] 00 EVERY 12 [facility] MYCOPHENOLA 0 Yes TAKE 3 [facility] TE SODIUM 6-02 TABLETS BY [facility] of 180 mg EC 00:00: MOUTH [place] tablet 00 EVERY 12 [facility] MYFORTIC 0 Yes TAKE 3 [facility] 180 mg 6-02 TABLETS BY [facility] of tablet 00:00: MOUTH [place] 00 EVERY 12 [facility] MYCOPHENOLA 0 Yes TAKE 3 [facility] TE SODIUM 6-02 TABLETS BY [facility] of 180 mg EC 00:00: MOUTH [place] tablet 00 EVERY 12 [facility] MYFORTIC 0 Yes TAKE 3 [facility] 180 mg 6-02 TABLETS BY [facility] of tablet 00:00: MOUTH [place] 00 EVERY 12 [facility] MYCOPHENOLA 0 Yes TAKE 3 [facility] TE SODIUM 6-02 TABLETS BY [facility] of 180 mg EC 00:00: MOUTH [place] tablet 00 EVERY 12 [facility] MYFORTIC 0 Yes TAKE 3 [facility] 180 mg 6-02 TABLETS BY [facility] of tablet 00:00: MOUTH [place] 00 EVERY 12 [facility] MYCOPHENOLA Yes TAKE 3 [facility] TE SODIUM 6-02 TABLETS BY [facility] of 180 mg EC 00:00: MOUTH [place] tablet 00 EVERY 12 [facility] MYFORTIC 0 Yes TAKE 3 [facility] 180 mg 6-02 TABLETS BY [facility] of tablet 00:00: MOUTH [place] 00 EVERY 12 [facility] MYCOPHENOLA Yes TAKE 3 [facility] TE SODIUM 6-02 TABLETS BY [facility] of 180 mg EC 00:00: MOUTH [place] tablet 00 EVERY 12 [facility] MYFORTIC Yes TAKE 3 [facility] 180 mg 6-02 TABLETS BY [facility] of tablet 00:00: MOUTH [place] 00 EVERY 12 [facility] MYCOPHENOLA Yes TAKE 3 [facility] TE SODIUM 6-02 TABLETS BY [facility] of 180 mg EC 00:00: MOUTH [place] tablet 00 EVERY 12 [facility] MYFORTIC 0 Yes TAKE 3 [facility] 180 mg 6-02 TABLETS BY [facility] of tablet 00:00: MOUTH [place] 00 EVERY 12 [facility] MYCOPHENOLA 0 Yes TAKE 3 [facility] TE SODIUM 6-02 TABLETS BY [facility] of 180 mg EC 00:00: MOUTH [place] tablet 00 EVERY 12 [facility] MYFORTIC 0 Yes TAKE 3 [facility] 180 mg 6-02 TABLETS BY [facility] of tablet 00:00: MOUTH [place] 00 EVERY 12 [facility] MYCOPHENOLA 0 Yes TAKE 3 [facility] TE SODIUM 6-02 TABLETS BY [facility] of 180 mg EC 00:00: MOUTH [place] tablet 00 EVERY 12 [facility] MYFORTIC 0 Yes TAKE 3 [facility] 180 mg 6-02 TABLETS BY [facility] of tablet 00:00: MOUTH [place] 00 EVERY 12 [facility] MYCOPHENOLA 0 Yes TAKE 3 [facility] TE SODIUM 6-02 TABLETS BY [facility] of 180 mg EC 00:00: MOUTH [place] tablet 00 EVERY 12 [facility] MYFORTIC 0 Yes TAKE 3 [facility] 180 mg 6-02 TABLETS BY [facility] of tablet 00:00: MOUTH [place] 00 EVERY 12 [facility] MYCOPHENOLA Yes TAKE 3 [facility] TE SODIUM 6-02 TABLETS BY [facility] of 180 mg EC 00:00: MOUTH [place] tablet 00 EVERY 12 [facility] MYFORTIC 0 Yes TAKE 3 [facility] 180 mg 6-02 TABLETS BY [facility] of tablet 00:00: MOUTH [place] 00 EVERY 12 [facility] MYCOPHENOLA Yes TAKE 3 [facility] TE SODIUM 6-02 TABLETS BY [facility] of 180 mg EC 00:00: MOUTH [place] tablet 00 EVERY 12 [facility] MYFORTIC Yes TAKE 3 [facility] 180 mg 6-02 TABLETS BY [facility] of tablet 00:00: MOUTH [place] 00 EVERY 12 [facility] MYCOPHENOLA Yes TAKE 3 [facility] TE SODIUM 6-02 TABLETS BY [facility] of 180 mg EC 00:00: MOUTH [place] tablet 00 EVERY 12 [facility] MYFORTIC Yes TAKE 3 [facility] 180 mg 6-02 TABLETS BY [facility] of tablet 00:00: MOUTH [place] 00 EVERY 12 [facility] MYCOPHENOLA Yes TAKE 3 [facility] TE SODIUM 6-02 TABLETS BY [facility] of 180 mg EC 00:00: MOUTH [place] tablet 00 EVERY 12 [facility] MYFORTIC Yes TAKE 3 [facility] 180 mg 6-02 TABLETS BY [facility] of tablet 00:00: MOUTH [place] 00 EVERY 12 [facility] MYCOPHENOLA 0 Yes TAKE 3 [facility] TE SODIUM 6-02 TABLETS BY [facility]y of 180 mg EC 00:00: MOUTH [place] tablet 00 EVERY 12 [facility] MYFORTIC 0 Yes TAKE 3 [facility] 180 mg 6-02 TABLETS BY [facility] of tablet 00:00: MOUTH [place] 00 EVERY 12 [facility] MYCOPHENOLA 0 Yes TAKE 3 [facility] TE SODIUM 6-02 TABLETS BY [facility] of 180 mg EC 00:00: MOUTH [place] tablet 00 EVERY 12 [facility] MYFORTIC 0 Yes TAKE 3 [facility] 180 mg 6-02 TABLETS BY [facility] of tablet 00:00: MOUTH [place] 00 EVERY 12 [facility] MYCOPHENOLA 0 Yes TAKE 3 [facility] TE SODIUM 6-02 TABLETS BY [facility] of 180 mg EC 00:00: MOUTH [place] tablet 00 EVERY 12 [facility] MYFORTIC 2022-0 Yes TAKE 3 [facility] 180 mg 6-02 TABLETS BY [facility] of tablet 00:00: MOUTH [place] 00 EVERY 12 [facility] MYCOPHENOLA 0 Yes TAKE 3 [facility] TE SODIUM 6-02 TABLETS BY ity of 180 mg EC 00:00: MOUTH [place] tablet 00 EVERY 12 [facility] MYFORTIC 0 Yes TAKE 3 [facility] 180 mg 6-02 TABLETS BY [facility] of tablet 00:00: MOUTH [place] 00 EVERY 12 [facility] MYCOPHENOLA Yes TAKE 3 [facility] TE SODIUM 6-02 TABLETS BY ity of 180 mg EC 00:00: MOUTH [place] tablet 00 EVERY 12 [facility] MYFORTIC Yes TAKE 3 [facility] 180 mg 6-02 TABLETS BY [facility] of tablet 00:00: MOUTH [place] 00 EVERY 12 [facility] MYCOPHENOLA Yes TAKE 3 [facility] TE SODIUM 6-02 TABLETS BY ity of 180 mg EC 00:00: MOUTH [place] tablet 00 EVERY 12 [facility] MYFORTIC Yes TAKE 3 [facility] 180 mg 6-02 TABLETS BY [facility] of tablet 00:00: MOUTH [place] 00 EVERY 12 [facility] MYCOPHENOLA Yes TAKE 3 [facility] TE SODIUM 6-02 TABLETS BY [facility]y of 180 mg EC 00:00: MOUTH [place] tablet 00 EVERY 12 [facility] MYFORTIC 0 Yes TAKE 3 [facility] 180 mg 6-02 TABLETS BY [facility] of tablet 00:00: MOUTH [place] 00 EVERY 12 [facility] MYCOPHENOLA 0 Yes TAKE 3 [facility] TE SODIUM 6-02 TABLETS BY ity of 180 mg EC 00:00: MOUTH [place] tablet 00 EVERY 12 [facility] MYFORTIC 0 Yes TAKE 3 [facility] 180 mg 6-02 TABLETS BY [facility] of tablet 00:00: MOUTH [place] 00 EVERY 12 [facility] MYCOPHENOLA 0 Yes TAKE 3 [facility] TE SODIUM 6-02 TABLETS BY ity of 180 mg EC 00:00: MOUTH [place] tablet 00 EVERY 12 [facility] MYFORTIC 0 Yes TAKE 3 [facility] 180 mg 6-02 TABLETS BY [facility] of tablet 00:00: MOUTH [place] 00 EVERY 12 [facility] MYCOPHENOLA 0 Yes TAKE 3 [facility] TE SODIUM 6-02 TABLETS BY ity of 180 mg EC 00:00: MOUTH [place] tablet 00 EVERY 12 [facility] MYFORTIC 2022-0 Yes TAKE 3 [facility] 180 mg 6-02 TABLETS BY [facility] of tablet 00:00: MOUTH [place] 00 EVERY 12 [facility] MYCOPHENOLA Yes TAKE 3 [facility] TE SODIUM 6-02 TABLETS BY ity of 180 mg EC 00:00: MOUTH [place] tablet 00 EVERY 12 [facility] MYFORTIC Yes TAKE 3 [facility] 180 mg 6-02 TABLETS BY [facility] of tablet 00:00: MOUTH [place] 00 EVERY 12 [facility] MYCOPHENOLA Yes TAKE 3 [facility] TE SODIUM 6-02 TABLETS BY ity of 180 mg EC 00:00: MOUTH [place] tablet 00 EVERY 12 [facility] MYFORTIC Yes TAKE 3 [facility] 180 mg 6-02 TABLETS BY [facility] of tablet 00:00: MOUTH [place] 00 EVERY 12 [facility] MYCOPHENOLA Yes TAKE 3 [facility] TE SODIUM 6-02 TABLETS BY ity of 180 mg EC 00:00: MOUTH [place] tablet 00 EVERY 12 [facility] MYFORTIC Yes TAKE 3 [facility] 180 mg 6-02 TABLETS BY [facility] of tablet 00:00: MOUTH [place] 00 EVERY 12 [facility] MYCOPHENOLA Yes TAKE 3 [facility] TE SODIUM 6-02 TABLETS BY ity of 180 mg EC 00:00: MOUTH [place] tablet 00 EVERY 12 [facility] MYFORTIC Yes TAKE 3 [facility] 180 mg 6-02 TABLETS BY [facility] of tablet 00:00: MOUTH [place] 00 EVERY 12 [facility] MYCOPHENOLA Yes TAKE 3 [facility] TE SODIUM 6-02 TABLETS BY ity of 180 mg EC 00:00: MOUTH [place] tablet 00 EVERY 12 [facility] MYFORTIC 0 Yes TAKE 3 [facility] 180 mg 6-02 TABLETS BY [facility] of tablet 00:00: MOUTH [place] 00 EVERY 12 [facility] HOU[facility] MYCOPHENOLA 0 Yes TAKE 3 [facility] TE SODIUM 6-02 TABLETS BY ity of 180 mg EC 00:00: MOUTH [place] tablet 00 EVERY 12 [facility] MYFORTIC 0 Yes TAKE 3 [facility] 180 mg 6-02 TABLETS BY [facility] of tablet 00:00: MOUTH [place] 00 EVERY 12 [facility] MYCOPHENOLA 0 Yes TAKE 3 [facility] TE SODIUM 6-02 TABLETS BY ity of 180 mg EC 00:00: MOUTH [place] tablet 00 EVERY 12 [facility] MYFORTIC Yes TAKE 3 [facility] 180 mg 6-02 TABLETS BY ity of tablet 00:00: MOUTH [place] 00 EVERY 12 [facility] HOU[facility] MYCOPHENOLA Yes TAKE 3 [facility] TE SODIUM 6-02 TABLETS BY ity of 180 mg EC 00:00: MOUTH [place] tablet 00 EVERY 12 [facility] MYFORTIC Yes TAKE 3 [facility] 180 mg 6-02 TABLETS BY [facility]y of tablet 00:00: MOUTH [place] 00 EVERY 12 [facility] HOU[facility] MYCOPHENOLA Yes TAKE 3 [facility] TE SODIUM 6-02 TABLETS BY ity of 180 mg EC 00:00: MOUTH [place] tablet 00 EVERY 12 [facility] MYFORTIC Yes TAKE 3 [facility] 180 mg 6-02 TABLETS BY ity of tablet 00:00: MOUTH [place] 00 EVERY 12 [facility] HOU[facility] MYCOPHENOLA Yes TAKE 3 [facility] TE SODIUM 6-02 TABLETS BY ity of 180 mg EC 00:00: MOUTH [place] tablet 00 EVERY 12 [facility] MYFORTIC Yes TAKE 3 [facility] 180 mg 6-02 TABLETS BY [facility]y of tablet 00:00: MOUTH [place] 00 EVERY 12 [facility] HOU[facility] MYCOPHENOLA Yes TAKE 3 [facility] TE SODIUM 6-02 TABLETS BY ity of 180 mg EC 00:00: MOUTH [place] tablet 00 EVERY 12 [facility] MYFORTIC Yes TAKE 3 [facility] 180 mg 6-02 TABLETS BY [facility] of tablet 00:00: MOUTH [place] 00 EVERY 12 [facility] MYCOPHENOLA Yes TAKE 3 [facility] TE SODIUM 6-02 TABLETS BY ity of 180 mg EC 00:00: MOUTH [place] tablet 00 EVERY 12 [facility] MYFORTIC 0 Yes TAKE 3 [facility] 180 mg 6-02 TABLETS BY [facility] of tablet 00:00: MOUTH [place] 00 EVERY 12 [facility] MYCOPHENOLA Yes TAKE 3 [facility] TE SODIUM 6-02 TABLETS BY ity of 180 mg EC 00:00: MOUTH [place] tablet 00 EVERY 12 [facility] MYFORTIC 0 Yes TAKE 3 [facility] 180 mg 6-02 TABLETS BY it[facility] of tablet 00:00: MOUTH [place] 00 EVERY 12 [facility] MYCOPHENOLA Yes TAKE 3 [facility] TE SODIUM 6-02 TABLETS BY ity of 180 mg EC 00:00: MOUTH [place] tablet 00 EVERY 12 [facility] MYFORTIC 0 Yes TAKE 3 [facility] 180 mg 6-02 TABLETS BY [facility] of tablet 00:00: MOUTH [place] 00 EVERY 12 [facility] MYCOPHENOLA Yes TAKE 3 [facility] TE SODIUM 6-02 TABLETS BY ity of 180 mg EC 00:00: MOUTH [place] tablet 00 EVERY 12 [facility] MYFORTIC 0 Yes TAKE 3 [facility] 180 mg 6-02 TABLETS BY it[facility] of tablet 00:00: MOUTH [place] 00 EVERY 12 [facility] MYCOPHENOLA 0 Yes TAKE 3 [facility] TE SODIUM 6-02 TABLETS BY ity of 180 mg EC 00:00: MOUTH [place] tablet 00 EVERY 12 [facility] MYFORTIC Yes TAKE 3 [facility] 180 mg 6-02 TABLETS BY [facility] of tablet 00:00: MOUTH [place] 00 EVERY 12 [facility] MYCOPHENOLA Yes TAKE 3 [facility] TE SODIUM 6-02 TABLETS BY ity of 180 mg EC 00:00: MOUTH [place] tablet 00 EVERY 12 [facility] MYFORTIC Yes TAKE 3 [facility] 180 mg 6-02 TABLETS BY [facility] of tablet 00:00: MOUTH [place] 00 EVERY 12 [facility] MYCOPHENOLA Yes TAKE 3 [facility] TE SODIUM 6-02 TABLETS BY ity of 180 mg EC 00:00: MOUTH [place] tablet 00 EVERY 12 [facility] MYFORTIC 0 Yes TAKE 3 [facility] 180 mg 6-02 TABLETS BY it[facility] of tablet 00:00: MOUTH [place] 00 EVERY 12 [facility] MYCOPHENOLA 0 Yes TAKE 3 [facility] TE SODIUM 6-02 TABLETS BY ity of 180 mg EC 00:00: MOUTH [place] tablet 00 EVERY 12 [facility] MYFORTIC 0 Yes TAKE 3 [facility] 180 mg 6-02 TABLETS BY it[facility] of tablet 00:00: MOUTH [place] 00 EVERY 12 [facility] MYCOPHENOLA 0 Yes TAKE 3 [facility] TE SODIUM 6-02 TABLETS BY ity of 180 mg EC 00:00: MOUTH [place] tablet 00 EVERY 12 [facility] MYFORTIC 0 Yes TAKE 3 [facility] 180 mg 6-02 TABLETS BY it[facility] of tablet 00:00: MOUTH [place] 00 EVERY 12 [facility] MYCOPHENOLA 0 Yes TAKE 3 [facility] TE SODIUM 6-02 TABLETS BY ity of 180 mg EC 00:00: MOUTH [place] tablet 00 EVERY 12 [facility] MYFORTIC 0 Yes TAKE 3 [facility] 180 mg 6-02 TABLETS BY [facility] of tablet 00:00: MOUTH [place] 00 EVERY 12 [facility] MYCOPHENOLA 0 Yes TAKE 3 [facility] TE SODIUM 6-02 TABLETS BY ity of 180 mg EC 00:00: MOUTH [place] tablet 00 EVERY 12 [facility] MYFORTIC 0 Yes TAKE 3 [facility] 180 mg 6-02 TABLETS BY it[facility] of tablet 00:00: MOUTH [place] 00 EVERY 12 [facility] MYCOPHENOLA 0 Yes TAKE 3 [facility] TE SODIUM 6-02 TABLETS BY ity of 180 mg EC 00:00: MOUTH [place] tablet 00 EVERY 12 [facility] MYFORTIC 0 Yes TAKE 3 [facility] 180 mg 6-02 TABLETS BY [facility] of tablet 00:00: MOUTH [place] 00 EVERY 12 [facility] MYCOPHENOLA 0 Yes TAKE 3 [facility] TE SODIUM 6-02 TABLETS BY ity of 180 mg EC 00:00: MOUTH [place] tablet 00 EVERY 12 [facility] MYFORTIC 0 Yes TAKE 3 [facility] 180 mg 6-02 TABLETS BY it[facility] of tablet 00:00: MOUTH [place] 00 EVERY 12 [facility] MYCOPHENOLA 0 Yes TAKE 3 [facility] TE SODIUM 6-02 TABLETS BY ity of 180 mg EC 00:00: MOUTH [place] tablet 00 EVERY 12 [facility] MYFORTIC 0 Yes TAKE 3 [facility] 180 mg 6-02 TABLETS BY it[facility] of tablet 00:00: MOUTH [place] 00 EVERY 12 [facility] MYCOPHENOLA 0 Yes TAKE 3 [facility] TE SODIUM 6-02 TABLETS BY ity of 180 mg EC 00:00: MOUTH [place] tablet 00 EVERY 12 [facility] MYFORTIC 0 Yes TAKE 3 [facility] 180 mg 6-02 TABLETS BY it[facility] of tablet 00:00: MOUTH [place] 00 EVERY 12 [facility] MYCOPHENOLA 0 Yes TAKE 3 [facility] TE SODIUM 6-02 TABLETS BY ity of 180 mg EC 00:00: MOUTH [place] tablet 00 EVERY 12 [facility] MYFORTIC 0 Yes TAKE 3 [facility] 180 mg 6-02 TABLETS BY it[facility] of tablet 00:00: MOUTH [place] 00 EVERY 12 [facility] MYCOPHENOLA 0 Yes TAKE 3 [facility] TE SODIUM 6-02 TABLETS BY ity of 180 mg EC 00:00: MOUTH [place] tablet 00 EVERY 12 [facility] MYFORTIC 0 Yes TAKE 3 [facility] 180 mg 6-02 TABLETS BY it[facility] of tablet 00:00: MOUTH [place] 00 EVERY 12 [facility] MYCOPHENOLA 0 Yes TAKE 3 [facility] TE SODIUM 6-02 TABLETS BY ity of 180 mg EC 00:00: MOUTH [place] tablet 00 EVERY 12 [facility] MYFORTIC 0 Yes TAKE 3 [facility] 180 mg 6-02 TABLETS BY it[facility] of tablet 00:00: MOUTH [place] 00 EVERY 12 [facility] MYCOPHENOLA 0 Yes TAKE 3 [facility] TE SODIUM 6-02 TABLETS BY ity of 180 mg EC 00:00: MOUTH [place] tablet 00 EVERY 12 [facility] MYFORTIC 0 Yes TAKE 3 [facility] 180 mg 6-02 TABLETS BY it[facility] of tablet 00:00: MOUTH [place] 00 EVERY 12 [facility] MYCOPHENOLA 0 Yes TAKE 3 [facility] TE SODIUM 6-02 TABLETS BY ity of 180 mg EC 00:00: MOUTH [place] tablet 00 EVERY 12 [facility] MYFORTIC 0 Yes TAKE 3 [facility] 180 mg 6-02 TABLETS BY it[facility] of tablet 00:00: MOUTH [place] 00 EVERY 12 [facility] MYCOPHENOLA 0 Yes TAKE 3 [facility] TE SODIUM 6-02 TABLETS BY ity of 180 mg EC 00:00: MOUTH [place] tablet 00 EVERY 12 [facility] MYFORTIC 2021-0 Yes TAKE 3 [facility] 180 mg 6-02 TABLETS BY [facility] of tablet 00:00: MOUTH [place] 00 EVERY 12 [facility] MYCOPHENOLA 0 Yes TAKE 3 [facility] TE SODIUM 6-02 TABLETS BY ity of 180 mg EC 00:00: MOUTH [place] tablet 00 EVERY 12 [facility] MYFORTIC 0 Yes TAKE 3 [facility] 180 mg 6-02 TABLETS BY it[facility] of tablet 00:00: MOUTH [place] 00 EVERY 12 [facility] MYFORTIC 2021-0 Yes TAKE 3 [facility] 180 mg 6-02 TABLETS BY [facility] of tablet 00:00: MOUTH [place] 00 EVERY 12 [facility] MYFORTIC 2021-0 Yes TAKE 3 [facility] 180 mg 6-02 TABLETS BY [facility] of tablet 00:00: MOUTH [place] 00 EVERY 12 [facility] MYFORTIC 2021-0 Yes TAKE 3 [facility] 180 mg 6-02 TABLETS BY [facility] of tablet 00:00: MOUTH [place] 00 EVERY 12 [facility] MYFORTIC 2021-0 Yes TAKE 3 [facility] 180 mg 6-02 TABLETS BY it[facility] of tablet 00:00: MOUTH EVERY 12 [facility] MYFORTIC 2021-0 Yes TAKE 3 [facility] 180 mg 6-02 TABLETS BY it[facility] of tablet 00:00: MOUTH EVERY 12 [facility] MYFORTIC 2021-0 Yes TAKE 3 [facility] 180 mg 6-02 TABLETS BY [facility] of tablet 00:00: MOUTH EVERY 12 [facility] MYFORTIC 2021-0 Yes TAKE 3 [facility] 180 mg 6-02 TABLETS BY [facility] of tablet 00:00: MOUTH EVERY 12 [facility] MYFORTIC 2021-0 Yes TAKE 3 [facility] 180 mg 6-02 TABLETS BY [facility] of tablet 00:00: MOUTH EVERY 12 [facility] MYFORTIC 2021-0 Yes TAKE 3 [facility] 180 mg 6-02 TABLETS BY [facility] of tablet 00:00: MOUTH EVERY 12 [facility] MYFORTIC 2021-0 Yes TAKE 3 [facility] 180 mg 6-02 TABLETS BY [facility] of tablet 00:00: MOUTH EVERY 12 [facility] MYFORTIC 2021-0 Yes TAKE 3 [facility] 180 mg 6-02 TABLETS BY [facility] of tablet 00:00: MOUTH EVERY 12 [facility] MYFORTIC 2021-0 Yes TAKE 3 [facility] 180 mg 6-02 TABLETS BY [facility] of tablet 00:00: MOUTH EVERY 12 [facility] MYFORTIC 2021-0 Yes TAKE 3 [facility] 180 mg 6-02 TABLETS BY [facility] of tablet 00:00: MOUTH EVERY 12 [facility] MYFORTIC 2021-0 Yes TAKE 3 [facility] 180 mg 6-02 TABLETS BY [facility] of tablet 00:00: MOUTH EVERY 12 [facility] MYFORTIC 2021-0 Yes TAKE 3 [facility] 180 mg 6-02 TABLETS BY [facility] of tablet 00:00: MOUTH EVERY 12 [facility] MYFORTIC 2021-0 Yes TAKE 3 [facility] 180 mg 6-02 TABLETS BY [facility] of tablet 00:00: MOUTH [place] EVERY 12 [facility] MYFORTIC 2021-0 Yes TAKE 3 [facility] 180 mg 6-02 TABLETS BY [facility] of tablet 00:00: MOUTH EVERY 12 [facility] MYFORTIC 2021-0 Yes TAKE 3 [facility] 180 mg 6-02 TABLETS BY [facility] of tablet 00:00: MOUTH [place] 00 EVERY 12 [facility] MYFORTIC 2021-0 Yes TAKE 3 [facility] 180 mg 6-02 TABLETS BY [facility] of tablet 00:00: MOUTH [place] 00 EVERY 12 [facility] MYFORTIC 2021-0 Yes TAKE 3 [facility] 180 mg 6-02 TABLETS BY [facility] of tablet 00:00: MOUTH [place] 00 EVERY 12 [facility] MYFORTIC 2021-0 Yes TAKE 3 [facility] 180 mg 6-02 TABLETS BY [facility] of tablet 00:00: MOUTH [place] 00 EVERY 12 [facility] MYFORTIC 2021-0 Yes TAKE 3 [facility] 180 mg 6-02 TABLETS BY [facility] tablet 00:00: MOUTH [place] 00 EVERY 12 [facility] HOURS [facility] MYFORTIC 2021-0 Yes TAKE 3 [facility] 180 mg 6-02 TABLETS BY [facility] tablet 00:00: MOUTH [place] EVERY 12 Medical HOURS [facility] MYFORTIC 2021-0 Yes TAKE 3 [facility] 180 mg 6-02 TABLETS BY [facility] tablet 00:00: MOUTH [place] EVERY 12 Medical HOURS [facility] MYFORTIC 2021-0 Yes TAKE 3 [facility] 180 mg 6-02 TABLETS BY [facility] tablet 00:00: MOUTH [place] EVERY 12 Medical HOURS [facility] MYFORTIC 2021-0 Yes TAKE 3 [facility] 180 mg 6-02 TABLETS BY [facility] tablet 00:00: MOUTH [place] EVERY 12 Medical HOURS [facility] MYFORTIC 2021-0 Yes TAKE 3 [facility] 180 mg 6-02 TABLETS BY [facility] tablet 00:00: MOUTH [place] EVERY 12 Medical HOURS [facility] MYFORTIC 2021-0 Yes TAKE 3 [facility] 180 mg 6-02 TABLETS BY [facility] tablet 00:00: MOUTH [place] EVERY 12 Medical HOURS [facility] MYFORTIC 2021-0 Yes TAKE 3 [facility] 180 mg 6-02 TABLETS BY [facility] tablet 00:00: MOUTH [place] 00 EVERY 12 [facility] HOURS [facility] MYFORTIC 2021-0 Yes TAKE 3 [facility] 180 mg 6-02 TABLETS BY [facility] tablet 00:00: MOUTH [place] EVERY 12 Medical HOURS [facility] MYFORTIC 2021-0 Yes TAKE 3 [facility] 180 mg 6-02 TABLETS BY [facility] tablet 00:00: MOUTH [place] 00 EVERY 12 Medical HOURS [facility] MYFORTIC 2021-0 Yes TAKE 3 [facility] 180 mg 6-02 TABLETS BY [facility] tablet 00:00: MOUTH [place] 00 EVERY 12 [facility] HOURS [facility] MYFORTIC 2022-0 Yes TAKE 3 [facility] 180 mg 6-02 TABLETS BY [facility] tablet 00:00: MOUTH [place] 00 EVERY 12 [facility] HOURS [facility] MYFORTIC 2021-0 Yes TAKE 3 [facility] 180 mg 6-02 TABLETS BY [facility] tablet 00:00: MOUTH [place] 00 EVERY 12 [facility] HOURS [facility] MYFORTIC 2021-0 Yes TAKE 3 [facility] 180 mg 6-02 TABLETS BY [facility] tablet 00:00: MOUTH [place] 00 EVERY 12 [facility] HOURS [facility] MYFORTIC 2021-0 Yes TAKE 3 [facility] 180 mg 6-02 TABLETS BY [facility] tablet 00:00: MOUTH [place] 00 EVERY 12 [facility] HOURS [facility] MYFORTIC 2021-0 Yes TAKE 3 [facility] 180 mg 6-02 TABLETS BY [facility] tablet 00:00: MOUTH [place] 00 EVERY 12 [facility] HOURS [facility] MYFORTIC 0 Yes TAKE 3 [facility] 180 mg 6-02 TABLETS BY [facility] tablet 00:00: MOUTH [place] 00 EVERY 12 [facility] HOURS [facility] MYFORTIC 2021-0 Yes TAKE 3 [facility] 180 mg 6-02 TABLETS BY [facility] tablet 00:00: MOUTH [place] EVERY 12 Medical HOURS [facility] MYFORTIC 2021-0 Yes TAKE 3 [facility] 180 mg 6-02 TABLETS BY [facility] tablet 00:00: MOUTH [place] 00 EVERY 12 [facility] HOURS [facility] MYFORTIC 2021-0 Yes TAKE 3 [facility] 180 mg 6-02 TABLETS BY [facility] tablet 00:00: MOUTH [place] 00 EVERY 12 [facility] HOURS [facility] MYFORTIC 2021-0 Yes TAKE 3 [facility] 180 mg 6-02 TABLETS BY [facility] tablet 00:00: MOUTH [place] 00 EVERY 12 [facility] HOURS [facility] MYFORTIC 2021-0 Yes TAKE 3 [facility] 180 mg 6-02 TABLETS BY [facility] tablet 00:00: MOUTH [place] 00 EVERY 12 [facility] HOURS [facility] MYFORTIC 2021-0 Yes TAKE 3 [facility] 180 mg 6-02 TABLETS BY [facility] tablet 00:00: MOUTH [place] 00 EVERY 12 [facility] HOURS [facility] MYFORTIC 2021-0 Yes TAKE 3 [facility] 180 mg 6-02 TABLETS BY [facility] tablet 00:00: MOUTH [place] 00 EVERY 12 [facility] HOURS [facility] MYFORTIC 2021-0 Yes TAKE 3 [facility] 180 mg 6-02 TABLETS BY [facility] tablet 00:00: MOUTH [place] 00 EVERY 12 [facility] HOURS [facility] MYFORTIC 2021-0 Yes TAKE 3 [facility] 180 mg 6-02 TABLETS BY [facility] tablet 00:00: MOUTH [place] 00 EVERY 12 [facility] HOURS [facility] MYFORTIC 2021-0 Yes TAKE 3 [facility] 180 mg 6-02 TABLETS BY [facility] tablet 00:00: MOUTH [place] EVERY 12 Medical HOURS [facility] MYFORTIC 2021-0 Yes TAKE 3 [facility] 180 mg 6-02 TABLETS BY [facility] tablet 00:00: MOUTH [place] EVERY 12 Medical HOURS [facility] MYFORTIC 2021-0 Yes TAKE 3 [facility] 180 mg 6-02 TABLETS BY [facility] tablet 00:00: MOUTH [place] EVERY 12 Medical HOURS [facility] MYFORTIC 2021-0 Yes TAKE 3 [facility] 180 mg 6-02 TABLETS BY [facility] tablet 00:00: MOUTH [place] EVERY 12 Medical HOURS [facility] MYFORTIC 2021-0 Yes TAKE 3 [facility] 180 mg 6-02 TABLETS BY [facility] tablet 00:00: MOUTH [place] EVERY 12 Medical HOURS [facility] MYFORTIC 2021-0 Yes TAKE 3 [facility] 180 mg 6-02 TABLETS BY [facility] tablet 00:00: MOUTH EVERY 12 [facility] HOURS [facility] MYFORTIC 2021-0 Yes TAKE 3 [facility] 180 mg 6-02 TABLETS BY [facility] tablet 00:00: MOUTH [place] EVERY 12 Medical HOURS [facility] MYFORTIC 2021-0 Yes TAKE 3 [facility] 180 mg 6-02 TABLETS BY [facility] tablet 00:00: MOUTH [place] EVERY 12 Medical HOURS [facility] MYFORTIC 2021-0 Yes TAKE 3 [facility] 180 mg 6-02 TABLETS BY [facility] tablet 00:00: MOUTH [place] EVERY 12 Medical HOURS [facility] MYFORTIC 2021-0 Yes TAKE 3 [facility] 180 mg 6-02 TABLETS BY [facility] tablet 00:00: MOUTH EVERY 12 [facility] HOURS [facility] MYFORTIC 2021-0 Yes TAKE 3 [facility] 180 mg 6-02 TABLETS BY [facility] tablet 00:00: MOUTH [place] 00 EVERY 12 Medical HOURS [facility] MYFORTIC 2021-0 Yes TAKE 3 [facility] 180 mg 6-02 TABLETS BY [facility] tablet 00:00: MOUTH [place] EVERY 12 Medical HOURS [facility] MYFORTIC 2021-0 Yes TAKE 3 [facility] 180 mg 6-02 TABLETS BY [facility] tablet 00:00: MOUTH [place] 00 EVERY 12 Medical HOURS [facility] MYFORTIC 2021-0 Yes TAKE 3 [facility] 180 mg 6-02 TABLETS BY [facility] tablet 00:00: MOUTH [place] EVERY 12 Medical HOURS [facility] MYFORTIC 2021-0 Yes TAKE 3 [facility] 180 mg 6-02 TABLETS BY [facility] tablet 00:00: MOUTH [place] 00 EVERY 12 Medical HOURS [facility] MYFORTIC 2021-0 Yes TAKE 3 [facility] 180 mg 6-02 TABLETS BY [facility] tablet 00:00: MOUTH [place] 00 EVERY 12 Medical HOURS [facility] MYFORTIC 2021-0 Yes TAKE 3 [facility] 180 mg 6-02 TABLETS BY [facility] tablet 00:00: MOUTH [place] 00 EVERY 12 Medical HOURS [facility] MYFORTIC 2021-0 Yes TAKE 3 [facility] 180 mg 6-02 TABLETS BY [facility] tablet 00:00: MOUTH [place] EVERY 12 Medical HOURS [facility] MYFORTIC 2021-0 Yes TAKE 3 [facility] 180 mg 6-02 TABLETS BY [facility] tablet 00:00: MOUTH [place] 00 EVERY 12 Medical HOURS [facility] MYFORTIC 2021-0 Yes TAKE 3 [facility] 180 mg 6-02 TABLETS BY [facility] tablet 00:00: MOUTH [place] 00 EVERY 12 [facility] HOURS [facility] MYFORTIC 2021-0 Yes TAKE 3 [facility] 180 mg 6-02 TABLETS BY [facility] tablet 00:00: MOUTH [place] EVERY 12 Medical HOURS [facility] MYFORTIC 2021-0 Yes TAKE 3 [facility] 180 mg 6-02 TABLETS BY [facility] tablet 00:00: MOUTH [place] 00 EVERY 12 [facility] HOURS [facility] MYFORTIC 2021-0 Yes TAKE 3 [facility] 180 mg 6-02 TABLETS BY [facility] tablet 00:00: MOUTH [place] EVERY 12 Medical HOURS [facility] MYFORTIC 2021-0 Yes TAKE 3 [facility] 180 mg 6-02 TABLETS BY [facility] tablet 00:00: MOUTH [place] EVERY 12 Medical HOURS [facility] MYFORTIC 2021-0 Yes TAKE 3 [facility] 180 mg 6-02 TABLETS BY [facility] tablet 00:00: MOUTH [place] EVERY 12 Medical HOURS [facility] MYFORTIC 2021-0 Yes TAKE 3 [facility] 180 mg 6-02 TABLETS BY [facility] tablet 00:00: MOUTH [place] 00 EVERY 12 Medical HOURS [facility] MYFORTIC 2021-0 Yes TAKE 3 [facility] 180 mg 6-02 TABLETS BY [facility] tablet 00:00: MOUTH [place] 00 EVERY 12 [facility] HOURS [facility] MYFORTIC 2021-0 Yes TAKE 3 [facility] 180 mg 6-02 TABLETS BY [facility] tablet 00:00: MOUTH [place] 00 EVERY 12 Medical HOURS [facility] MYFORTIC 2021-0 Yes TAKE 3 [facility] 180 mg 6-02 TABLETS BY [facility] tablet 00:00: MOUTH [place] 00 EVERY 12 Medical HOURS [facility] MYFORTIC 2021-0 Yes TAKE 3 [facility] 180 mg 6-02 TABLETS BY [facility] tablet 00:00: MOUTH [place] 00 EVERY 12 Medical HOURS [facility] MYCOPHENOLA 2-0 2022- No TAKE 3 [facility] TE SODIUM 6-02 06-02 TABLETS BY [facility] 180 mg EC 00:00: 00:00 MOUTH [place] tablet 00 :00 EVERY 12 Medical HOURS [facility] MYCOPHENOLA 2021-0 3- No TAKE 3 [facility] TE SODIUM 6-02 06-02 TABLETS BY [facility] 180 mg EC 00:00: 00:00 MOUTH [place] tablet 00 :00 EVERY 12 Medical HOURS [facility] predniSONE 2-0 Yes [id number] 5mg Take 1 [facility] 5 mg tablet 5-25 tablet by [facility] of 00:00: mouth [place] 00 daily. [facility] predniSONE 2021-0 Yes [id number] 5mg Take 1 [facility] 5 mg tablet 5-25 tablet by [facility] 00:00: mouth [place] 00 daily. [facility] predniSONE 2021-0 Yes [id number] 5mg Take 1 [facility] 5 mg tablet 5-25 tablet by [facility] of 00:00: mouth [place] 00 daily. [facility] predniSONE 2021-0 Yes [id number] 5mg Take 1 [facility] 5 mg tablet 5-25 tablet by [facility] of 00:00: mouth [place] 00 daily. [facility] predniSONE 2021-0 Yes [id number] 5mg Take 1 [facility] 5 mg tablet 5-25 tablet by [facility] 00:00: mouth [place] 00 daily. [facility] predniSONE 2-0 Yes [id number] 5mg Take 1 [facility] 5 mg tablet 5-25 tablet by [facility] of 00:00: mouth [place] 00 daily. [facility] predniSONE 2-0 Yes [id number] 5mg Take 1 [facility] 5 mg tablet 5-25 tablet by [facility] of 00:00: mouth [place] 00 daily. [facility] predniSONE 2-0 Yes [id number] 5mg Take 1 [facility] 5 mg tablet 5-25 tablet by [facility] of 00:00: mouth [place] 00 daily. [facility] predniSONE 2-0 Yes [id number] 5mg Take 1 [facility] 5 mg tablet 5-25 tablet by [facility] of 00:00: mouth [place] 00 daily. [facility] predniSONE 2-0 Yes [id number] 5mg Take 1 [facility] 5 mg tablet 5-25 tablet by [facility] of 00:00: mouth [place] 00 daily. [facility] predniSONE 2-0 Yes [id number] 5mg Take 1 [facility] 5 mg tablet 5-25 tablet by [facility] of 00:00: mouth [place] 00 daily. [facility] predniSONE 2022-0 Yes [id number] 5mg Take 1 [facility] 5 mg tablet 5-25 tablet by [facility] of 00:00: mouth [place] 00 daily. [facility] predniSONE 2022-0 Yes [id number] 5mg Take 1 [facility] 5 mg tablet 5-25 tablet by [facility] of 00:00: mouth [place] 00 daily. [facility] predniSONE 2022-0 Yes [id number] 5mg Take 1 [facility] 5 mg tablet 5-25 tablet by [facility] of 00:00: mouth [place] 00 daily. [facility] predniSONE 2022-0 Yes [id number] 5mg Take 1 [facility] 5 mg tablet 5-25 tablet by [facility] of 00:00: mouth [place] 00 daily. [facility] predniSONE 2-0 Yes [id number] 5mg Take 1 [facility] 5 mg tablet 5-25 tablet by [facility] of 00:00: mouth [place] 00 daily. [facility] predniSONE 2-0 Yes [id number] 5mg Take 1 [facility] 5 mg tablet 5-25 tablet by [facility] of 00:00: mouth [place] 00 daily. [facility] predniSONE 2-0 Yes [id number] 5mg Take 1 [facility] 5 mg tablet 5-25 tablet by [facility] of 00:00: mouth [place] 00 daily. [facility] predniSONE 2022-0 Yes [id number] 5mg Take 1 [facility] 5 mg tablet 5-25 tablet by [facility] of 00:00: mouth [place] 00 daily. [facility] predniSONE 2022-0 Yes [id number] 5mg Take 1 [facility] 5 mg tablet 5-25 tablet by [facility] of 00:00: mouth [place] 00 daily. [facility] predniSONE 2022-0 Yes [id number] 5mg Take 1 [facility] 5 mg tablet 5-25 tablet by [facility] of 00:00: mouth [place] 00 daily. [facility] predniSONE 2022-0 Yes [id number] 5mg Take 1 [facility] 5 mg tablet 5-25 tablet by [facility] of 00:00: mouth [place] 00 daily. [facility] predniSONE 2022-0 Yes [id number] 5mg Take 1 [facility] 5 mg tablet 5-25 tablet by [facility] of 00:00: mouth [place] 00 daily. [facility] predniSONE 2022-0 Yes [id number] 5mg Take 1 [facility] 5 mg tablet 5-25 tablet by [facility] of 00:00: mouth [place] 00 daily. [facility] predniSONE 2022-0 Yes [id number] 5mg Take 1 [facility] 5 mg tablet 5-25 tablet by [facility] of 00:00: mouth [place] 00 daily. [facility] predniSONE 2022-0 Yes [id number] 5mg Take 1 [facility] 5 mg tablet 5-25 tablet by [facility] of 00:00: mouth [place] 00 daily. [facility] predniSONE 2022-0 Yes [id number] 5mg Take 1 [facility] 5 mg tablet 5-25 tablet by [facility] of 00:00: mouth [place] 00 daily. [facility] predniSONE 2022-0 Yes [id number] 5mg Take 1 [facility] 5 mg tablet 5-25 tablet by [facility] of 00:00: mouth [place] 00 daily. [facility] predniSONE 2022-0 Yes [id number] 5mg Take 1 [facility] 5 mg tablet 5-25 tablet by [facility] of 00:00: mouth [place] 00 daily. [facility] predniSONE 2022-0 Yes [id number] 5mg Take 1 [facility] 5 mg tablet 5-25 tablet by [facility] of 00:00: mouth [place] 00 daily. [facility] predniSONE 2022-0 Yes [id number] 5mg Take 1 [facility] 5 mg tablet 5-25 tablet by [facility] of 00:00: mouth [place] 00 daily. [facility] predniSONE 2022-0 Yes [id number] 5mg Take 1 [facility] 5 mg tablet 5-25 tablet by [facility] of 00:00: mouth [place] 00 daily. [facility] predniSONE 2022-0 Yes [id number] 5mg Take 1 [facility] 5 mg tablet 5-25 tablet by [facility] of 00:00: mouth [place] 00 daily. [facility] predniSONE 2022-0 Yes [id number] 5mg Take 1 [facility] 5 mg tablet 5-25 tablet by [facility] of 00:00: mouth [place] 00 daily. [facility] predniSONE 2022-0 Yes [id number] 5mg Take 1 [facility] 5 mg tablet 5-25 tablet by [facility] of 00:00: mouth [place] 00 daily. [facility] predniSONE 2022-0 Yes [id number] 5mg Take 1 [facility] 5 mg tablet 5-25 tablet by [facility] of 00:00: mouth [place] 00 daily. [facility] predniSONE 2022-0 Yes [id number] 5mg Take 1 [facility] 5 mg tablet 5-25 tablet by [facility] of 00:00: mouth [place] 00 daily. [facility] predniSONE 2022-0 Yes [id number] 5mg Take 1 [facility] 5 mg tablet 5-25 tablet by [facility] of 00:00: mouth [place] 00 daily. [facility] predniSONE 2022-0 Yes [id number] 5mg Take 1 [facility] 5 mg tablet 5-25 tablet by [facility] of 00:00: mouth [place] 00 daily. [facility] predniSONE 2022-0 Yes [id number] 5mg Take 1 [facility] 5 mg tablet 5-25 tablet by [facility] of 00:00: mouth [place] 00 daily. [facility] predniSONE 2022-0 Yes [id number] 5mg Take 1 [facility] 5 mg tablet 5-25 tablet by [facility] of 00:00: mouth [place] 00 daily. [facility] predniSONE 2022-0 Yes [id number] 5mg Take 1 [facility] 5 mg tablet 5-25 tablet by [facility] of 00:00: mouth [place] 00 daily. [facility] predniSONE 2-0 Yes [id number] 5mg Take 1 [facility] 5 mg tablet 5-25 tablet by [facility] of 00:00: mouth [place] 00 daily. [facility] predniSONE 2-0 Yes [id number] 5mg Take 1 [facility] 5 mg tablet 5-25 tablet by [facility] of 00:00: mouth [place] 00 daily. [facility] predniSONE 2-0 Yes [id number] 5mg Take 1 [facility] 5 mg tablet 5-25 tablet by [facility] of 00:00: mouth [place] 00 daily. [facility] predniSONE 2022-0 Yes [id number] 5mg Take 1 [facility] 5 mg tablet 5-25 tablet by [facility] of 00:00: mouth [place] 00 daily. [facility] predniSONE 2022-0 Yes [id number] 5mg Take 1 [facility] 5 mg tablet 5-25 tablet by [facility] of 00:00: mouth [place] 00 daily. [facility] predniSONE 2022-0 Yes [id number] 5mg Take 1 [facility] 5 mg tablet 5-25 tablet by [facility] of 00:00: mouth [place] 00 daily. [facility] predniSONE 2022-0 Yes [id number] 5mg Take 1 [facility] 5 mg tablet 5-25 tablet by [facility] of 00:00: mouth [place] 00 daily. [facility] predniSONE 2022-0 Yes [id number] 5mg Take 1 [facility] 5 mg tablet 5-25 tablet by [facility] of 00:00: mouth [place] 00 daily. [facility] predniSONE 2022-0 Yes [id number] 5mg Take 1 [facility] 5 mg tablet 5-25 tablet by [facility] of 00:00: mouth [place] 00 daily. [facility] predniSONE 2022-0 Yes [id number] 5mg Take 1 [facility] 5 mg tablet 5-25 tablet by [facility] of 00:00: mouth [place] 00 daily. [facility] predniSONE 2022-0 Yes [id number] 5mg Take 1 [facility] 5 mg tablet 5-25 tablet by [facility] of 00:00: mouth [place] 00 daily. [facility] predniSONE 2022-0 Yes [id number] 5mg Take 1 [facility] 5 mg tablet 5-25 tablet by [facility] of 00:00: mouth [place] 00 daily. [facility] predniSONE 2022-0 Yes [id number] 5mg Take 1 [facility] 5 mg tablet 5-25 tablet by [facility] of 00:00: mouth [place] 00 daily. [facility] predniSONE 2022-0 Yes [id number] 5mg Take 1 [facility] 5 mg tablet 5-25 tablet by [facility] of 00:00: mouth [place] 00 daily. [facility] predniSONE 2022-0 Yes [id number] 5mg Take 1 [facility] 5 mg tablet 5-25 tablet by [facility] of 00:00: mouth [place] 00 daily. [facility] predniSONE 2-0 Yes [id number] 5mg Take 1 [facility] 5 mg tablet 5-25 tablet by [facility] of 00:00: mouth [place] 00 daily. [facility] predniSONE 2022-0 Yes [id number] 5mg Take 1 [facility] 5 mg tablet 5-25 tablet by [facility] of 00:00: mouth [place] 00 daily. [facility] predniSONE 2022-0 Yes [id number] 5mg Take 1 [facility] 5 mg tablet 5-25 tablet by [facility] of 00:00: mouth [place] 00 daily. [facility] predniSONE 2022-0 Yes [id number] 5mg Take 1 [facility] 5 mg tablet 5-25 tablet by [facility] of 00:00: mouth [place] 00 daily. [facility] predniSONE 2022-0 Yes [id number] 5mg Take 1 [facility] 5 mg tablet 5-25 tablet by [facility] of 00:00: mouth [place] 00 daily. [facility] predniSONE 2022-0 Yes [id number] 5mg Take 1 [facility] 5 mg tablet 5-25 tablet by [facility] of 00:00: mouth [place] 00 daily. [facility] predniSONE 2022-0 Yes [id number] 5mg Take 1 [facility] 5 mg tablet 5-25 tablet by [facility] of 00:00: mouth [place] 00 daily. [facility] predniSONE 2022-0 Yes [id number] 5mg Take 1 [facility] 5 mg tablet 5-25 tablet by [facility] of 00:00: mouth [place] 00 daily. [facility] predniSONE 2021-0 Yes [id number] 5mg Take 1 [facility] 5 mg tablet 5-25 tablet by [facility] of 00:00: mouth [place] 00 daily. [facility] predniSONE 2021-0 Yes [id number] 5mg Take 1 [facility] 5 mg tablet 5-25 tablet by [facility] of 00:00: mouth [place] 00 daily. [facility] predniSONE 2021-0 3- No [id number] 5mg Take 1 [facility] 5 mg tablet 5-25 06-02 tablet by it y of 00:00: 00:00 mouth [place] 00 :00 daily. [facility] predniSONE 2021-0 3- No [id number] 5mg Take 1 [facility] 5 mg tablet 5-25 06-02 tablet by it y of 00:00: 00:00 mouth [place] 00 :00 daily. [facility] famotidine 2021-0 Yes 20mg Take 1 [facility] 20 mg 5-24 tablet by [facility] tablet 00:00: mouth (two) Medical times [facility] daily. carvediloL 2021-0 Yes 25mg Take 1 [facility] 25 mg 5-24 tablet by [facility] tablet 00:00: mouth [place] (two) Medical times [facility] daily with meals. irbesartan 2021-0 Yes [id number] 150mg Take 1 [facility] 150 mg 5-24 tablet by [facility] tablet 00:00: mouth at [place] 00 bedtime. [facility] calcitrioL 2021-0 Yes [id number] .25ug Take 1 [facility] 0.25 mcg 5-24 capsule by [facility] o f capsule 00:00: mouth [place] 00 daily. [facility] rosuvastati 2021-0 Yes [id number] 5mg Take 1 [facility] n 5 mg 5-24 tablet by [facility] tablet 00:00: mouth at [place] 00 bedtime. [facility] omeprazole 2021-0 Yes [id number] 20mg Take 1 [facility] 20 mg 5-24 capsule by [facility] of capsule 00:00: mouth [place] 00 daily. [facility] famotidine 2021-0 Yes 20mg Take 1 [facility] 20 mg 5-24 tablet by [facility] tablet 00:00: mouth 2 [place] (two) Medical times [facility] daily. carvediloL 2021-0 Yes 25mg Take 1 [facility] 25 mg 5-24 tablet by [facility] tablet 00:00: mouth 2 (two) Medical times [facility] daily with meals. irbesartan 2021-0 Yes [id number] 150mg Take 1 [facility] 150 mg 5-24 tablet by [facility] tablet 00:00: mouth at bedtime. [facility] calcitrioL 2021-0 Yes [id number] .25ug Take 1 [facility] 0.25 mcg 5-24 capsule by [facility] o f capsule 00:00: mouth 00 daily. [facility] rosuvastati 2021-0 Yes [id number] 5mg Take 1 [facility] n 5 mg 5-24 tablet by [facility] of tablet 00:00: mouth at bedtime. [facility] omeprazole 2021-0 Yes [id number] 20mg Take 1 [facility] 20 mg 5-24 capsule by [facility] of capsule 00:00: mouth 00 daily. [facility] famotidine 2021-0 Yes 20mg Take 1 [facility] 20 mg 5-24 tablet by [facility] tablet 00:00: mouth (two) Medical times [facility] daily. carvediloL 2021-0 Yes 25mg Take 1 [facility] 25 mg 5-24 tablet by [facility] tablet 00:00: mouth (two) Medical times [facility] daily with meals. irbesartan 2021-0 Yes [id number] 150mg Take 1 [facility] 150 mg 5-24 tablet by [facility] tablet 00:00: mouth at [place] bedtime. [facility] calcitrioL 2021-0 Yes [id number] .25ug Take 1 [facility] 0.25 mcg 5-24 capsule by [facility] o f capsule 00:00: mouth 00 daily. [facility] rosuvastati 2021-0 Yes [id number] 5mg Take 1 [facility] n 5 mg 5-24 tablet by [facility] of tablet 00:00: mouth at [place] 00 bedtime. [facility] omeprazole 2021-0 Yes [id number] 20mg Take 1 [facility] 20 mg 5-24 capsule by [facility] of capsule 00:00: mouth 00 daily. [facility] famotidine 2021-0 Yes 20mg Take 1 [facility] 20 mg 5-24 tablet by [facility] tablet 00:00: mouth 2 (two) Medical times [facility] daily. carvediloL 2021-0 Yes 25mg Take 1 [facility] 25 mg 5-24 tablet by [facility] tablet 00:00: mouth 2 (two) Medical times [facility] daily with meals. irbesartan 2021-0 Yes [id number] 150mg Take 1 [facility] 150 mg 5-24 tablet by [facility] tablet 00:00: mouth at bedtime. [facility] calcitrioL 2021-0 Yes [id number] .25ug Take 1 [facility] 0.25 mcg 5-24 capsule by [facility] o f capsule 00:00: mouth 00 daily. [facility] rosuvastati 2021-0 Yes [id number] 5mg Take 1 [facility] n 5 mg 5-24 tablet by [facility] of tablet 00:00: mouth at bedtime. [facility] omeprazole 2021-0 Yes [id number] 20mg Take 1 [facility] 20 mg 5-24 capsule by [facility] of capsule 00:00: mouth 00 daily. [facility] famotidine 2021-0 Yes 20mg Take 1 [facility] 20 mg 5-24 tablet by [facility] tablet 00:00: mouth (two) Medical times [facility] daily. carvediloL 2021-0 Yes 25mg Take 1 [facility] 25 mg 5-24 tablet by [facility] tablet 00:00: mouth (two) Medical times [facility] daily with meals. irbesartan 2021-0 Yes [id number] 150mg Take 1 [facility] 150 mg 5-24 tablet by [facility] of tablet 00:00: mouth at [place] bedtime. [facility] calcitrioL 2021-0 Yes [id number] .25ug Take 1 [facility] 0.25 mcg 5-24 capsule by [facility] o f capsule 00:00: mouth 00 daily. [facility] rosuvastati 2021-0 Yes [id number] 5mg Take 1 [facility] n 5 mg 5-24 tablet by [facility] of tablet 00:00: mouth at [place] 00 bedtime. [facility] omeprazole 2021-0 Yes [id number] 20mg Take 1 [facility] 20 mg 5-24 capsule by [facility] of capsule 00:00: mouth 00 daily. [facility] famotidine 2021-0 Yes 20mg Take 1 [facility] 20 mg 5-24 tablet by [facility] tablet 00:00: mouth 2 (two) Medical times [facility] daily. carvediloL 2021-0 Yes 25mg Take 1 [facility] 25 mg 5-24 tablet by [facility] tablet 00:00: mouth 2 (two) Medical times [facility] daily with meals. irbesartan 2021-0 Yes [id number] 150mg Take 1 [facility] 150 mg 5-24 tablet by [facility] tablet 00:00: mouth at bedtime. [facility] calcitrioL 2021-0 Yes [id number] .25ug Take 1 [facility] 0.25 mcg 5-24 capsule by [facility] o f capsule 00:00: mouth 00 daily. [facility] rosuvastati 2021-0 Yes [id number] 5mg Take 1 [facility] n 5 mg 5-24 tablet by [facility] of tablet 00:00: mouth at bedtime. [facility] omeprazole 2021-0 Yes [id number] 20mg Take 1 [facility] 20 mg 5-24 capsule by [facility] of capsule 00:00: mouth 00 daily. [facility] famotidine 2021-0 Yes 20mg Take 1 [facility] 20 mg 5-24 tablet by [facility] tablet 00:00: mouth (two) Medical times [facility] daily. carvediloL 2021-0 Yes 25mg Take 1 [facility] 25 mg 5-24 tablet by [facility] tablet 00:00: mouth (two) Medical times [facility] daily with meals. irbesartan 2021-0 Yes [id number] 150mg Take 1 [facility] 150 mg 5-24 tablet by [facility] of tablet 00:00: mouth at [place] bedtime. [facility] calcitrioL 2021-0 Yes [id number] .25ug Take 1 [facility] 0.25 mcg 5-24 capsule by [facility] o f capsule 00:00: mouth 00 daily. [facility] rosuvastati 2021-0 Yes [id number] 5mg Take 1 [facility] n 5 mg 5-24 tablet by [facility] of tablet 00:00: mouth at [place] 00 bedtime. [facility] omeprazole 2021-0 Yes [id number] 20mg Take 1 [facility] 20 mg 5-24 capsule by [facility] of capsule 00:00: mouth 00 daily. [facility] famotidine 2021-0 Yes 20mg Take 1 [facility] 20 mg 5-24 tablet by [facility] tablet 00:00: mouth 2 (two) Medical times [facility] daily. carvediloL 2021-0 Yes 25mg Take 1 [facility] 25 mg 5-24 tablet by [facility] tablet 00:00: mouth 2 (two) Medical times [facility] daily with meals. irbesartan 2021-0 Yes [id number] 150mg Take 1 [facility] 150 mg 5-24 tablet by [facility] tablet 00:00: mouth at bedtime. [facility] calcitrioL 2021-0 Yes [id number] .25ug Take 1 [facility] 0.25 mcg 5-24 capsule by [facility] o f capsule 00:00: mouth 00 daily. [facility] rosuvastati 2021-0 Yes [id number] 5mg Take 1 [facility] n 5 mg 5-24 tablet by [facility] of tablet 00:00: mouth at bedtime. [facility] omeprazole 2021-0 Yes [id number] 20mg Take 1 [facility] 20 mg 5-24 capsule by [facility] of capsule 00:00: mouth 00 daily. [facility] famotidine 2021-0 Yes 20mg Take 1 [facility] 20 mg 5-24 tablet by [facility] tablet 00:00: mouth (two) Medical times [facility] daily. carvediloL 2021-0 Yes 25mg Take 1 [facility] 25 mg 5-24 tablet by [facility] tablet 00:00: mouth (two) Medical times [facility] daily with meals. irbesartan 2021-0 Yes [id number] 150mg Take 1 [facility] 150 mg 5-24 tablet by [facility] tablet 00:00: mouth at [place] bedtime. [facility] calcitrioL 2021-0 Yes [id number] .25ug Take 1 [facility] 0.25 mcg 5-24 capsule by [facility] o f capsule 00:00: mouth 00 daily. [facility] rosuvastati 2021-0 Yes [id number] 5mg Take 1 [facility] n 5 mg 5-24 tablet by [facility] of tablet 00:00: mouth at [place] 00 bedtime. [facility] omeprazole 2021-0 Yes [id number] 20mg Take 1 [facility] 20 mg 5-24 capsule by [facility] of capsule 00:00: mouth 00 daily. [facility] famotidine 2021-0 Yes 20mg Take 1 [facility] 20 mg 5-24 tablet by [facility] tablet 00:00: mouth 2 (two) Medical times [facility] daily. carvediloL 2021-0 Yes 25mg Take 1 [facility] 25 mg 5-24 tablet by [facility] tablet 00:00: mouth 2 (two) Medical times [facility] daily with meals. irbesartan 2021-0 Yes [id number] 150mg Take 1 [facility] 150 mg 5-24 tablet by [facility] tablet 00:00: mouth at bedtime. [facility] calcitrioL 2021-0 Yes [id number] .25ug Take 1 [facility] 0.25 mcg 5-24 capsule by [facility] o f capsule 00:00: mouth 00 daily. [facility] rosuvastati 2021-0 Yes [id number] 5mg Take 1 [facility] n 5 mg 5-24 tablet by [facility] tablet 00:00: mouth at bedtime. [facility] omeprazole 2021-0 Yes [id number] 20mg Take 1 [facility] 20 mg 5-24 capsule by [facility] capsule 00:00: mouth 00 daily. [facility] famotidine 2021-0 Yes 20mg Take 1 [facility] 20 mg 5-24 tablet by [facility]:00: mouth (two) [facility] daily. carvediloL 2021-0 Yes 25mg Take 1 [facility] mg 5-24 tablet by [facility] tablet 00:00: mouth (two) [facility] daily with meals. irbesartan 2021-0 Yes [id number] 150mg Take 1 [facility] 150 [facility] 5-24 tablet by [facility] tablet 00:00: mouth at [place] bedtime. [facility] calcitrioL 2021-0 Yes [id number] .25ug Take 1 [facility] 0.25 mcg 5-24 capsule by [facility] capsule 00:00: mouth 00 daily. [facility] rosuvastati 2021-0 Yes [id number] 5mg Take 1 [facility] n 5 mg 5-24 tablet by [facility] 00:00: mouth at [place] 00 bedtime. [facility] omeprazole 2021-0 Yes [id number] 20mg Take 1 [facility] 20 mg 5-24 capsule by [facility] 00:00: mouth 00 daily. [facility] famotidine 2021-0 Yes 20mg Take 1 [facility] 20 mg 5-24 tablet by [facility] 00:00: mouth 2 (two) [facility] daily. carvediloL 2021-0 Yes 25mg Take 1 [facility] 25 mg 5-24 tablet [facility] 00:00: mouth 2 (two) [facility] times [facility] daily with meals. irbesartan 2021-0 Yes [id number] 150mg Take 1 [facility] 150 mg 5-24 tablet by [facility] 00:00: mouth at bedtime. [facility] calcitrioL 2021-0 Yes [id number] .25ug Take 1 [facility] 0.25 mcg 5-24 capsule by [facility] capsule 00:00: mouth 00 daily. [facility] rosuvastati 2021-0 Yes [id number] 5mg Take 1 [facility] n 5 mg 5-24 tablet by [facility] 00:00: mouth at bedtime. [facility] omeprazole 2021-0 Yes [id number] 20mg Take 1 [facility] 20 mg 5-24 capsule by [facility] capsule 00:00: mouth 00 daily. [facility] famotidine 2021-0 Yes 20mg Take 1 [facility] 20 mg 5-24 tablet by [facility] 00:00: mouth (two) [facility] daily. carvediloL 2021-0 Yes 25mg Take 1 [facility] 25 mg 5-24 tablet by [facility] tablet 00:00: mouth (two) [facility] times [facility] daily with meals. irbesartan 2021-0 Yes [id number] 150mg Take 1 [facility] 150 mg 5-24 tablet by [facility] 00:00: mouth at [place] bedtime. [facility] calcitrioL 2021-0 Yes [id number] .25ug Take 1 [facility] 0.25 mcg 5-24 capsule by [facility] capsule 00:00: mouth 00 daily. [facility] rosuvastati 2021-0 Yes [id number] 5mg Take 1 [facility] n 5 mg 5-24 tablet by [facility] 00:00: mouth at [place] 00 bedtime. [facility] omeprazole 2021-0 Yes [id number] 20mg Take 1 [facility] 20 mg 5-24 capsule by [facility] capsule 00:00: mouth 00 daily. [facility] famotidine 2021-0 Yes 20mg Take 1 [facility] 20 mg 5-24 tablet by [facility] 00:00: mouth 2 (two) [facility] times [facility] daily. carvediloL 2021-0 Yes 25mg Take 1 [facility] 25 mg 5-24 tablet by [facility] tablet 00:00: mouth 2 (two) [facility] times [facility] daily with meals. irbesartan 2021-0 Yes [id number] 150mg Take 1 [facility] 150 mg 5-24 tablet by [facility] 00:00: mouth at bedtime. [facility] calcitrioL 2021-0 Yes [id number] .25ug Take 1 [facility] 0.25 mcg 5-24 capsule by [facility] capsule 00:00: mouth 00 daily. [facility] rosuvastati 2021-0 Yes [id number] 5mg Take 1 [facility] n 5 mg 5-24 tablet by [facility] 00:00: mouth at bedtime. [facility] omeprazole 2021-0 Yes [id number] 20mg Take 1 [facility] 20 mg 5-24 capsule by [facility] capsule 00:00: mouth 00 daily. [facility] famotidine 2021-0 Yes 20mg Take 1 [facility] 20 mg 5-24 tablet by [facility] 00:00: mouth (two) [facility] times [facility] daily. carvediloL 2021-0 Yes 25mg Take 1 [facility] 25 mg 5-24 tablet by [facility] tablet 00:00: mouth (two) [facility] times [facility] daily with meals. irbesartan 2021-0 Yes [id number] 150mg Take 1 [facility] 150 mg 5-24 tablet by [facility] 00:00: mouth at [place] bedtime. [facility] calcitrioL 2021-0 Yes [id number] .25ug Take 1 [facility] 0.25 mcg 5-24 capsule by [facility] capsule 00:00: mouth 00 daily. [facility] rosuvastati 2021-0 Yes [id number] 5mg Take 1 [facility] n 5 mg 5-24 tablet by [facility] tablet 00:00: mouth at [place] 00 bedtime. [facility] omeprazole 2021-0 Yes [id number] 20mg Take 1 [facility] 20 mg 5-24 capsule by [facility] capsule 00:00: mouth 00 daily. [facility] famotidine 2021-0 Yes 20mg Take 1 [facility] 20 mg 5-24 tablet by [facility] 00:00: mouth 2 (two) [facility] times [facility] daily. carvediloL 2021-0 Yes 25mg Take 1 [facility] 25 mg 5-24 tablet by [facility] 00:00: mouth 2 (two) [facility] times [facility] daily with meals. irbesartan 2021-0 Yes [id number] 150mg Take 1 [facility] 150 mg 5-24 tablet by [facility] tablet 00:00: mouth at bedtime. [facility] calcitrioL 2021-0 Yes [id number] .25ug Take 1 [facility] 0.25 mcg 5-24 capsule by [facility] capsule 00:00: mouth 00 daily. [facility] rosuvastati 2021-0 Yes [id number] 5mg Take 1 [facility] n 5 mg 5-24 tablet by [facility] tablet 00:00: mouth at [place] bedtime. [facility] omeprazole 2021-0 Yes [id number] 20mg Take 1 [facility] 20 mg 5-24 capsule by [facility] capsule 00:00: mouth 00 daily. [facility] famotidine 2021-0 Yes 20mg Take 1 [facility] 20 mg 5-24 tablet by [facility] 00:00: mouth (two) [facility] daily. carvediloL 2021-0 Yes 25mg Take 1 [facility] 25 mg 5-24 tablet by [facility] tablet 00:00: mouth (two) [facility] times [facility] daily with meals. irbesartan 2021-0 Yes [id number] 150mg Take 1 [facility] 150 mg 5-24 tablet by [facility] 00:00: mouth at [place] bedtime. [facility] calcitrioL 2021-0 Yes [id number] .25ug Take 1 [facility] 0.25 mcg 5-24 capsule by [facility] capsule 00:00: mouth 00 daily. [facility] rosuvastati 2021-0 Yes [id number] 5mg Take 1 [facility] n 5 mg 5-24 tablet by [facility] tablet 00:00: mouth at [place] 00 bedtime. [facility] omeprazole 2021-0 Yes [id number] 20mg Take 1 [facility] 20 mg 5-24 capsule by [facility] capsule 00:00: mouth 00 daily. [facility] carvediloL 2021-0 Yes 25mg Take 1 [facility] 25 mg 5-24 tablet by [facility] tablet 00:00: mouth 2 (two) [facility] times [facility] daily with meals. irbesartan 2021-0 Yes [id number] 150mg Take 1 [facility] 150 mg 5-24 tablet by [facility] tablet 00:00: mouth at [place] bedtime. [facility] calcitrioL 2021-0 Yes [id number] .25ug Take 1 [facility] 0.25 mcg 5-24 capsule by [facility] capsule 00:00: mouth 00 daily. [facility] rosuvastati 2021-0 Yes [id number] 5mg Take 1 [facility] n 5 mg 5-24 tablet by [facility] tablet 00:00: mouth at [place] bedtime. [facility] carvediloL 2021-0 Yes 25mg Take 1 [facility] 25 mg 5-24 tablet by [facility] tablet 00:00: mouth 2 (two) [facility] times [facility] daily with meals. irbesartan 2021-0 Yes [id number] 150mg Take 1 [facility] 150 mg 5-24 tablet by [facility] tablet 00:00: mouth at [place] bedtime. [facility] calcitrioL 2021-0 Yes [id number] .25ug Take 1 [facility] 0.25 mcg 5-24 capsule by [facility] capsule 00:00: mouth 00 daily. [facility] rosuvastati 2021-0 Yes [id number] 5mg Take 1 [facility] n 5 mg 5-24 tablet by [facility] 00:00: mouth at [place] bedtime. [facility] carvediloL 2021-0 Yes 25mg Take 1 [facility] 25 mg 5-24 tablet by [facility] tablet 00:00: mouth 2 (two) [facility] times [facility] daily with meals. irbesartan 2021-0 Yes [id number] 150mg Take 1 [facility] 150 mg 5-24 tablet by [facility] 00:00: mouth at [place] bedtime. [facility] calcitrioL 2021-0 Yes [id number] .25ug Take 1 [facility] 0.25 mcg 5-24 capsule by [facility] capsule 00:00: mouth 00 daily. [facility] rosuvastati 2021-0 Yes [id number] 5mg Take 1 [facility] n 5 mg 5-24 tablet by [facility] 00:00: mouth at [place] bedtime. [facility] carvediloL 2021-0 Yes 25mg Take 1 [facility] 25 mg 5-24 tablet by [facility] tablet 00:00: mouth 2 (two) [facility] times [facility] daily with meals. irbesartan 2021-0 Yes [id number] 150mg Take 1 [facility] 150 mg 5-24 tablet by [facility] 00:00: mouth at [place] bedtime. [facility] calcitrioL 2021-0 Yes [id number] .25ug Take 1 [facility] 0.25 mcg 5-24 capsule by [facility] capsule 00:00: mouth 00 daily. [facility] rosuvastati 2021-0 Yes [id number] 5mg Take 1 [facility] n 5 mg 5-24 tablet by [facility] 00:00: mouth at [place] bedtime. [facility] carvediloL 2021-0 Yes 25mg Take 1 [facility] 25 mg 5-24 tablet by [facility] tablet 00:00: mouth 2 [place] (two) [facility] times [facility] daily with meals. irbesartan 2021-0 Yes [id number] 150mg Take 1 [facility] 150 mg 5-24 tablet by [facility] tablet 00:00: mouth at [place] bedtime. [facility] calcitrioL 2021-0 Yes [id number] .25ug Take 1 [facility] 0.25 mcg 5-24 capsule by [facility] capsule 00:00: mouth daily. [facility] rosuvastati 2021-0 Yes [id number] 5mg Take 1 [facility] n 5 mg 5-24 tablet by [facility] 00:00: mouth at [place] bedtime. [facility] carvediloL 2021-0 Yes 25mg Take 1 [facility] 25 mg 5-24 tablet by [facility] 00:00: mouth 2 [place] (two) [facility] times [facility] daily with meals. irbesartan 2021-0 Yes [id number] 150mg Take 1 [facility] 150 mg 5-24 tablet by [facility] 00:00: mouth at [place] bedtime. [facility] calcitrioL 2021-0 Yes [id number] .25ug Take 1 [facility] 0.25 mcg 5-24 capsule by [facility] capsule 00:00: mouth 00 daily. [facility] rosuvastati 2021-0 Yes [id number] 5mg Take 1 [facility] n 5 mg 5-24 tablet by [facility] 00:00: mouth at [place] bedtime. [facility] carvediloL 2021-0 Yes 25mg Take 1 [facility] 25 mg 5-24 tablet by [facility] tablet 00:00: mouth 2 (two) [facility] times [facility] daily with meals. irbesartan 2021-0 Yes [id number] 150mg Take 1 [facility] 150 mg 5-24 tablet by [facility] 00:00: mouth at [place] bedtime. [facility] calcitrioL 2021-0 Yes [id number] .25ug Take 1 [facility] 0.25 mcg 5-24 capsule by [facility] capsule 00:00: mouth [place] 00 daily. [facility] rosuvastati 2021-0 Yes [id number] 5mg Take 1 [facility] n 5 mg 5-24 tablet by [facility] tablet 00:00: mouth at [place] bedtime. [facility] carvediloL 2021-0 Yes 25mg Take 1 [facility] 25 mg 5-24 tablet by [facility] tablet 00:00: mouth 2 (two) [facility] times [facility] daily with meals. irbesartan 2021-0 Yes [id number] 150mg Take 1 [facility] 150 mg 5-24 tablet by [facility] tablet 00:00: mouth at [place] bedtime. [facility] calcitrioL 2021-0 Yes [id number] .25ug Take 1 [facility] 0.25 mcg 5-24 capsule by [facility] capsule 00:00: mouth 00 daily. [facility] rosuvastati 2021-0 Yes [id number] 5mg Take 1 [facility] n 5 mg 5-24 tablet by [facility] tablet 00:00: mouth at [place] bedtime. [facility] carvediloL 2021-0 Yes 25mg Take 1 [facility] 25 mg 5-24 tablet by [facility] tablet 00:00: mouth 2 (two) [facility] times [facility] daily with meals. irbesartan 2021-0 Yes [id number] 150mg Take 1 [facility] 150 mg 5-24 tablet by [facility] tablet 00:00: mouth at [place] bedtime. [facility] calcitrioL 2021-0 Yes [id number] .25ug Take 1 [facility] 0.25 mcg 5-24 capsule by [facility] capsule 00:00: mouth [place] 00 daily. [facility] rosuvastati 2021-0 Yes [id number] 5mg Take 1 [facility] n 5 mg 5-24 tablet by [facility] tablet 00:00: mouth at [place] bedtime. [facility] carvediloL 2021-0 Yes 25mg Take 1 [facility] 25 mg 5-24 tablet by [facility] tablet 00:00: mouth 2 (two) [facility] times [facility] daily with meals. irbesartan 2021-0 Yes [id number] 150mg Take 1 [facility] 150 mg 5-24 tablet by [facility] tablet 00:00: mouth at [place] bedtime. [facility] calcitrioL 2021-0 Yes [id number] .25ug Take 1 [facility] 0.25 mcg 5-24 capsule by [facility] capsule 00:00: mouth 00 daily. [facility] rosuvastati 2021-0 Yes [id number] 5mg Take 1 [facility] n 5 mg 5-24 tablet by [facility] tablet 00:00: mouth at [place] bedtime. [facility] carvediloL 2021-0 Yes 25mg Take 1 [facility] 25 mg 5-24 tablet by [facility] tablet 00:00: mouth 2 [place] (two) [facility] times [facility] daily with meals. irbesartan 2021-0 Yes [id number] 150mg Take 1 [facility] 150 mg 5-24 tablet by [facility] tablet 00:00: mouth at [place] bedtime. [facility] calcitrioL 2021-0 Yes [id number] .25ug Take 1 [facility] 0.25 mcg 5-24 capsule by [facility] capsule 00:00: mouth 00 daily. [facility] rosuvastati 2021-0 Yes [id number] 5mg Take 1 [facility] n 5 mg 5-24 tablet by [facility] tablet 00:00: mouth at [place] bedtime. [facility] carvediloL 2021-0 Yes 25mg Take 1 [facility] 25 mg 5-24 tablet by [facility] tablet 00:00: mouth 2 (two) [facility] times [facility] daily with meals. irbesartan 2021-0 Yes [id number] 150mg Take 1 [facility] 150 mg 5-24 tablet by [facility] tablet 00:00: mouth at [place] bedtime. [facility] calcitrioL 2021-0 Yes [id number] .25ug Take 1 [facility] 0.25 mcg 5-24 capsule by [facility] capsule 00:00: mouth 00 daily. [facility] rosuvastati 2021-0 Yes [id number] 5mg Take 1 [facility] n 5 mg 5-24 tablet by [facility] tablet 00:00: mouth at [place] [address] bedtime. [facility] carvediloL 2021-0 Yes 25mg Take 1 [facility] 25 mg 5-24 tablet by [facility] tablet 00:00: mouth 2 (two) [facility] times [facility] daily with meals. irbesartan 2021-0 Yes [id number] 150mg Take 1 [facility] 150 mg 5-24 tablet by [facility] tablet 00:00: mouth at [place] bedtime. [facility] calcitrioL 2021-0 Yes [id number] .25ug Take 1 [facility] 0.25 mcg 5-24 capsule by [facility] capsule 00:00: mouth [place] 00 daily. [facility] rosuvastati 2021-0 Yes [id number] 5mg Take 1 [facility] n 5 mg 5-24 tablet by [facility] tablet 00:00: mouth at [place] bedtime. [facility] carvediloL 2021-0 Yes 25mg Take 1 [facility] 25 mg 5-24 tablet by [facility] tablet 00:00: mouth 2 (two) [facility] times [facility] daily with meals. irbesartan 2021-0 Yes [id number] 150mg Take 1 [facility] 150 mg 5-24 tablet by [facility] tablet 00:00: mouth at [place] bedtime. [facility] calcitrioL 2021-0 Yes [id number] .25ug Take 1 [facility] 0.25 mcg 5-24 capsule by [facility] capsule 00:00: mouth 00 daily. [facility] rosuvastati 2021-0 Yes [id number] 5mg Take 1 [facility] n 5 mg 5-24 tablet by [facility] tablet 00:00: mouth at [place] bedtime. [facility] carvediloL 2021-0 Yes 25mg Take 1 [facility] 25 mg 5-24 tablet by [facility] tablet 00:00: mouth 2 (two) [facility] times [facility] daily with meals. irbesartan 2021-0 Yes [id number] 150mg Take 1 [facility] 150 mg 5-24 tablet by [facility] tablet 00:00: mouth at [place] bedtime. [facility] calcitrioL 2021-0 Yes [id number] .25ug Take 1 [facility] 0.25 mcg 5-24 capsule by [facility] capsule 00:00: mouth [place] 00 daily. [facility] rosuvastati 2021-0 Yes [id number] 5mg Take 1 [facility] n 5 mg 5-24 tablet by [facility] tablet 00:00: mouth at [place] bedtime. [facility] carvediloL 2021-0 Yes 25mg Take 1 [facility] 25 mg 5-24 tablet by [facility] tablet 00:00: mouth 2 [place] (two) [facility] times [facility] daily with meals. irbesartan 2021-0 Yes [id number] 150mg Take 1 [facility] 150 mg 5-24 tablet by [facility] tablet 00:00: mouth at [place] bedtime. [facility] calcitrioL 2021-0 Yes [id number] .25ug Take 1 [facility] 0.25 mcg 5-24 capsule by [facility] capsule 00:00: mouth [place] 00 daily. [facility] rosuvastati 2021-0 Yes [id number] 5mg Take 1 [facility] n 5 mg 5-24 tablet by [facility] tablet 00:00: mouth at [place] bedtime. [facility] carvediloL 2021-0 Yes 25mg Take 1 [facility] 25 mg 5-24 tablet by [facility] tablet 00:00: mouth 2 [place] (two) [facility] times [facility] daily with meals. irbesartan 2021-0 Yes [id number] 150mg Take 1 [facility] 150 mg 5-24 tablet by [facility] tablet 00:00: mouth at [place] [address] bedtime. [facility] calcitrioL 2021-0 Yes [id number] .25ug Take 1 [facility] 0.25 mcg 5-24 capsule by [facility] f capsule 00:00: mouth 00 daily. [facility] rosuvastati 2021-0 Yes [id number] 5mg Take 1 [facility] n 5 mg 5-24 tablet by [facility] tablet 00:00: mouth at [place] bedtime. [facility] carvediloL 2021-0 Yes 25mg Take 1 [facility] 25 mg 5-24 tablet by [facility] tablet 00:00: mouth 2 [place] (two) [facility] times [facility] daily with meals. irbesartan 2021-0 Yes [id number] 150mg Take 1 [facility] 150 mg 5-24 tablet by [facility] tablet 00:00: mouth at [place] bedtime. [facility] calcitrioL 2021-0 Yes [id number] .25ug Take 1 [facility] 0.25 mcg 5-24 capsule by [facility] f capsule 00:00: mouth [place] 00 daily. [facility] rosuvastati 2021-0 Yes [id number] 5mg Take 1 [facility] n 5 mg 5-24 tablet by [facility] tablet 00:00: mouth at [place] [address] bedtime. [facility] carvediloL 2021-0 Yes 25mg Take 1 [facility] 25 mg 5-24 tablet by [facility] tablet 00:00: mouth 2 (two) [facility] times [facility] daily with meals. irbesartan 2021-0 Yes [id number] 150mg Take 1 [facility] 150 mg 5-24 tablet by [facility] tablet 00:00: mouth at [place] bedtime. [facility] calcitrioL 2021-0 Yes [id number] .25ug Take 1 [facility] 0.25 mcg 5-24 capsule by [facility] f capsule 00:00: mouth [place] 00 daily. [facility] rosuvastati 2021-0 Yes [id number] 5mg Take 1 [facility] n 5 mg 5-24 tablet by [facility] tablet 00:00: mouth at [place] bedtime. [facility] carvediloL 2021-0 Yes 25mg Take 1 [facility] 25 mg 5-24 tablet by [facility] tablet 00:00: mouth 2 [place] (two) [facility] times [facility] daily with meals. irbesartan 2021-0 Yes [id number] 150mg Take 1 [facility] 150 mg 5-24 tablet by [facility] tablet 00:00: mouth at [place] bedtime. [facility] calcitrioL 2021-0 Yes [id number] .25ug Take 1 [facility] 0.25 mcg 5-24 capsule by [facility] capsule 00:00: mouth daily. [facility] rosuvastati 2021-0 Yes [id number] 5mg Take 1 [facility] n 5 mg 5-24 tablet by [facility] tablet 00:00: mouth at [place] bedtime. [facility] carvediloL 2021-0 Yes 25mg Take 1 [facility] 25 mg 5-24 tablet by [facility] tablet 00:00: mouth 2 [place] (two) [facility] times [facility] daily with meals. irbesartan 2021-0 Yes [id number] 150mg Take 1 [facility] 150 mg 5-24 tablet by [facility] tablet 00:00: mouth at [place] bedtime. [facility] calcitrioL 2021-0 Yes [id number] .25ug Take 1 [facility] 0.25 mcg 5-24 capsule by [facility] f capsule 00:00: mouth [place] 00 daily. [facility] rosuvastati 2021-0 Yes [id number] 5mg Take 1 [facility] n 5 mg 5-24 tablet by [facility] tablet 00:00: mouth at [place] bedtime. [facility] carvediloL 2021-0 Yes 25mg Take 1 [facility] 25 mg 5-24 tablet by [facility] tablet 00:00: mouth 2 [place] (two) [facility] times [facility] daily with meals. irbesartan 2021-0 Yes [id number] 150mg Take 1 [facility] 150 mg 5-24 tablet by [facility] tablet 00:00: mouth at [place] bedtime. [facility] calcitrioL 2021-0 Yes [id number] .25ug Take 1 [facility] 0.25 mcg 5-24 capsule by [facility] f capsule 00:00: mouth 00 daily. [facility] rosuvastati 2021-0 Yes [id number] 5mg Take 1 [facility] n 5 mg 5-24 tablet by [facility] tablet 00:00: mouth at [place] bedtime. [facility] carvediloL 2021-0 Yes 25mg Take 1 [facility] 25 mg 5-24 tablet by [facility] tablet 00:00: mouth 2 [place] (two) [facility] times [facility] daily with meals. irbesartan 2021-0 Yes [id number] 150mg Take 1 [facility] 150 mg 5-24 tablet by [facility] tablet 00:00: mouth at [place] bedtime. [facility] calcitrioL 2021-0 Yes [id number] .25ug Take 1 [facility] 0.25 mcg 5-24 capsule by [facility] f capsule 00:00: mouth 00 daily. [facility] rosuvastati 2021-0 Yes [id number] 5mg Take 1 [facility] n 5 mg 5-24 tablet by [facility] tablet 00:00: mouth at [place] bedtime. [facility] carvediloL 2021-0 Yes 25mg Take 1 [facility] 25 mg 5-24 tablet by [facility] tablet 00:00: mouth 2 [place] (two) [facility] times [facility] daily with meals. irbesartan 2021-0 Yes [id number] 150mg Take 1 [facility] 150 mg 5-24 tablet by [facility] tablet 00:00: mouth at [place] bedtime. [facility] calcitrioL 2021-0 Yes [id number] .25ug Take 1 [facility] 0.25 mcg 5-24 capsule by [facility] f capsule 00:00: mouth [place] 00 daily. [facility] rosuvastati 2021-0 Yes [id number] 5mg Take 1 [facility] n 5 mg 5-24 tablet by [facility] tablet 00:00: mouth at [place] bedtime. [facility] carvediloL 2021-0 Yes 25mg Take 1 [facility] 25 mg 5-24 tablet by [facility] tablet 00:00: mouth 2 (two) [facility] times [facility] daily with meals. irbesartan 2021-0 Yes [id number] 150mg Take 1 [facility] 150 mg 5-24 tablet by [facility] tablet 00:00: mouth at [place] bedtime. [facility] calcitrioL 2021-0 Yes [id number] .25ug Take 1 [facility] 0.25 mcg 5-24 capsule by [facility] capsule 00:00: mouth 00 daily. [facility] rosuvastati 2021-0 Yes [id number] 5mg Take 1 [facility] n 5 mg 5-24 tablet by [facility] tablet 00:00: mouth at [place] bedtime. [facility] carvediloL 2021-0 Yes 25mg Take 1 [facility] 25 mg 5-24 tablet by [facility] tablet 00:00: mouth 2 (two) [facility] times [facility] daily with meals. irbesartan 2021-0 Yes [id number] 150mg Take 1 [facility] 150 mg 5-24 tablet by [facility] tablet 00:00: mouth at [place] bedtime. [facility] calcitrioL 2021-0 Yes [id number] .25ug Take 1 [facility] 0.25 mcg 5-24 capsule by [facility] f capsule 00:00: mouth 00 daily. [facility] rosuvastati 2021-0 Yes [id number] 5mg Take 1 [facility] n 5 mg 5-24 tablet by [facility] tablet 00:00: mouth at [place] bedtime. [facility] carvediloL 2021-0 Yes 25mg Take 1 [facility] 25 mg 5-24 tablet by [facility] tablet 00:00: mouth 2 (two) [facility] times [facility] daily with meals. irbesartan 2021-0 Yes [id number] 150mg Take 1 [facility] 150 mg 5-24 tablet by [facility] tablet 00:00: mouth at [place] bedtime. [facility] calcitrioL 2021-0 Yes [id number] .25ug Take 1 [facility] 0.25 mcg 5-24 capsule by [facility] f capsule 00:00: mouth 00 daily. [facility] rosuvastati 2021-0 Yes [id number] 5mg Take 1 [facility] n 5 mg 5-24 tablet by [facility] tablet 00:00: mouth at [place] bedtime. [facility] carvediloL 2021-0 Yes 25mg Take 1 [facility] 25 mg 5-24 tablet by [facility] tablet 00:00: mouth 2 (two) [facility] times [facility] daily with meals. irbesartan 2021-0 Yes [id number] 150mg Take 1 [facility] 150 mg 5-24 tablet by [facility] tablet 00:00: mouth at [place] bedtime. [facility] calcitrioL 2021-0 Yes [id number] .25ug Take 1 [facility] 0.25 mcg 5-24 capsule by [facility] f capsule 00:00: mouth 00 daily. [facility] rosuvastati 2021-0 Yes [id number] 5mg Take 1 [facility] n 5 mg 5-24 tablet by [facility] tablet 00:00: mouth at [place] bedtime. [facility] carvediloL 2021-0 Yes 25mg Take 1 [facility] 25 mg 5-24 tablet by [facility] tablet 00:00: mouth 2 [place] (two) [facility] times [facility] daily with meals. irbesartan 2021-0 Yes [id number] 150mg Take 1 [facility] 150 mg 5-24 tablet by [facility] tablet 00:00: mouth at [place] bedtime. [facility] calcitrioL 2021-0 Yes [id number] .25ug Take 1 [facility] 0.25 mcg 5-24 capsule by [facility] f capsule 00:00: mouth 00 daily. [facility] rosuvastati 2021-0 Yes [id number] 5mg Take 1 [facility] n 5 mg 5-24 tablet by [facility] tablet 00:00: mouth at [place] bedtime. [facility] carvediloL 2021-0 Yes 25mg Take 1 [facility] 25 mg 5-24 tablet by [facility] tablet 00:00: mouth 2 [place] (two) [facility] times [facility] daily with meals. irbesartan 2021-0 Yes [id number] 150mg Take 1 [facility] 150 mg 5-24 tablet by [facility] tablet 00:00: mouth at [place] bedtime. [facility] calcitrioL 2021-0 Yes [id number] .25ug Take 1 [facility] 0.25 mcg 5-24 capsule by [facility] f capsule 00:00: mouth 00 daily. [facility] rosuvastati 2021-0 Yes [id number] 5mg Take 1 [facility] n 5 mg 5-24 tablet by [facility] tablet 00:00: mouth at [place] bedtime. [facility] carvediloL 2021-0 Yes 25mg Take 1 [facility] 25 mg 5-24 tablet by [facility] tablet 00:00: mouth 2 [place] (two) [facility] times [facility] daily with meals. irbesartan 2021-0 Yes [id number] 150mg Take 1 [facility] 150 mg 5-24 tablet by [facility] tablet 00:00: mouth at [place] bedtime. [facility] calcitrioL 2021-0 Yes [id number] .25ug Take 1 [facility] 0.25 mcg 5-24 capsule by [facility] f capsule 00:00: mouth 00 daily. [facility] rosuvastati 2021-0 Yes [id number] 5mg Take 1 [facility] n 5 mg 5-24 tablet by [facility] tablet 00:00: mouth at [place] bedtime. [facility] carvediloL 2021-0 Yes 25mg Take 1 [facility] 25 mg 5-24 tablet by [facility] tablet 00:00: mouth 2 [place] (two) [facility] times [facility] daily with meals. irbesartan 2021-0 Yes [id number] 150mg Take 1 [facility] 150 mg 5-24 tablet by [facility] tablet 00:00: mouth at [place] bedtime. [facility] calcitrioL 2021-0 Yes [id number] .25ug Take 1 [facility] 0.25 mcg 5-24 capsule by [facility] f capsule 00:00: mouth daily. [facility] rosuvastati 2021-0 Yes [id number] 5mg Take 1 [facility] n 5 mg 5-24 tablet by [facility] tablet 00:00: mouth at [place] bedtime. [facility] carvediloL 2021-0 Yes 25mg Take 1 [facility] 25 mg 5-24 tablet by [facility] tablet 00:00: mouth 2 [place] (two) [facility] times [facility] daily with meals. irbesartan 2021-0 Yes [id number] 150mg Take 1 [facility] 150 mg 5-24 tablet by [facility] tablet 00:00: mouth at [place] bedtime. [facility] calcitrioL 2021-0 Yes [id number] .25ug Take 1 [facility] 0.25 mcg 5-24 capsule by [facility] f capsule 00:00: mouth daily. [facility] rosuvastati 2021-0 Yes [id number] 5mg Take 1 [facility] n 5 mg 5-24 tablet by [facility] tablet 00:00: mouth at [place] bedtime. [facility] carvediloL 2021-0 Yes 25mg Take 1 [facility] 25 mg 5-24 tablet by [facility] tablet 00:00: mouth 2 (two) [facility] times [facility] daily with meals. irbesartan 2021-0 Yes [id number] 150mg Take 1 [facility] 150 mg 5-24 tablet by [facility] tablet 00:00: mouth at [place] bedtime. [facility] calcitrioL 2021-0 Yes [id number] .25ug Take 1 [facility] 0.25 mcg 5-24 capsule by [facility] f capsule 00:00: mouth daily. [facility] rosuvastati 2021-0 Yes [id number] 5mg Take 1 [facility] n 5 mg 5-24 tablet by [facility] tablet 00:00: mouth at [place] bedtime. [facility] carvediloL 2021-0 Yes 25mg Take 1 [facility] 25 mg 5-24 tablet by [facility] tablet 00:00: mouth 2 [place] (two) Medical times Branch daily with meals. irbesartan 2021-0 Yes [id number] 150mg Take 1 [facility] 150 mg 5-24 tablet by [facility] tablet 00:00: mouth at [place] bedtime. [facility] calcitrioL 2021-0 Yes [id number] .25ug Take 1 [facility] 0.25 mcg 5-24 capsule by [facility] o f capsule 00:00: mouth daily. [facility] rosuvastati 2021-0 Yes [id number] 5mg Take 1 [facility] n 5 mg 5-24 tablet by [facility] tablet 00:00: mouth at [place] bedtime. [facility] carvediloL 2021-0 Yes 25mg Take 1 [facility] 25 mg 5-24 tablet by [facility] tablet 00:00: mouth 2 [place] (two) Medical times Branch daily with meals. irbesartan 2021-0 Yes [id number] 150mg Take 1 [facility] 150 mg 5-24 tablet by [facility] tablet 00:00: mouth at [place] [address] bedtime. Medical [facility] calcitrioL 2021-0 Yes [id number] .25ug Take 1 [facility] 0.25 mcg 5-24 capsule by [facility] o f capsule 00:00: mouth [place] 00 daily. [facility] rosuvastati 2021-0 Yes [id number] 5mg Take 1 [facility] n 5 mg 5-24 tablet by [facility] tablet 00:00: mouth at [place] bedtime. [facility] carvediloL 2021-0 Yes 25mg Take 1 [facility] 25 mg 5-24 tablet by [facility] tablet 00:00: mouth 2 (two) Medical times Branch daily with meals. irbesartan 2021-0 Yes [id number] 150mg Take 1 [facility] 150 mg 5-24 tablet by [facility] tablet 00:00: mouth at [place] bedtime. [facility] calcitrioL 2021-0 Yes [id number] .25ug Take 1 [facility] 0.25 mcg 5-24 capsule by [facility] o f capsule 00:00: mouth 00 daily. [facility] rosuvastati 2021-0 Yes [id number] 5mg Take 1 [facility] n 5 mg 5-24 tablet by [facility] tablet 00:00: mouth at [place] bedtime. [facility] carvediloL 2021-0 Yes 25mg Take 1 [facility] 25 mg 5-24 tablet by [facility] tablet 00:00: mouth 2 [place] (two) Medical times Branch daily with meals. irbesartan 2021-0 Yes [id number] 150mg Take 1 [facility] 150 mg 5-24 tablet by [facility] tablet 00:00: mouth at [place] bedtime. [facility] calcitrioL 2021-0 Yes [id number] .25ug Take 1 [facility] 0.25 mcg 5-24 capsule by [facility] o f capsule 00:00: mouth daily. [facility] rosuvastati 2021-0 Yes [id number] 5mg Take 1 [facility] n 5 mg 5-24 tablet by [facility] tablet 00:00: mouth at [place] bedtime. [facility] carvediloL 2021-0 Yes 25mg Take 1 [facility] 25 mg 5-24 tablet by [facility] tablet 00:00: mouth 2 [place] (two) Medical times Branch daily with meals. irbesartan 2021-0 Yes [id number] 150mg Take 1 [facility] 150 mg 5-24 tablet by [facility] tablet 00:00: mouth at [place] bedtime. [facility] calcitrioL 2021-0 Yes [id number] .25ug Take 1 [facility] 0.25 mcg 5-24 capsule by [facility] o f capsule 00:00: mouth [place] 00 daily. [facility] rosuvastati 2021-0 Yes [id number] 5mg Take 1 [facility] n 5 mg 5-24 tablet by [facility] tablet 00:00: mouth at [place] bedtime. [facility] carvediloL 2021-0 Yes 25mg Take 1 [facility] 25 mg 5-24 tablet by [facility] tablet 00:00: mouth 2 (two) Medical times Branch daily with meals. irbesartan 2021-0 Yes [id number] 150mg Take 1 [facility] 150 mg 5-24 tablet by [facility] tablet 00:00: mouth at [place] bedtime. [facility] calcitrioL 2021-0 Yes [id number] .25ug Take 1 [facility] 0.25 mcg 5-24 capsule by [facility] o f capsule 00:00: mouth 00 daily. [facility] rosuvastati 2021-0 Yes [id number] 5mg Take 1 [facility] n 5 mg 5-24 tablet by [facility] tablet 00:00: mouth at [place] bedtime. [facility] carvediloL 2021-0 Yes 25mg Take 1 [facility] 25 mg 5-24 tablet by [facility] tablet 00:00: mouth 2 (two) Medical times Branch daily with meals. calcitrioL 2021-0 Yes [id number] .25ug Take 1 [facility] 0.25 mcg 5-24 capsule by [facility] o f capsule 00:00: mouth 00 daily. [facility] rosuvastati 2021-0 Yes [id number] 5mg Take 1 [facility] n 5 mg 5-24 tablet by [facility] tablet 00:00: mouth at [place] bedtime. [facility] carvediloL 2021-0 Yes 25mg Take 1 [facility] 25 mg 5-24 tablet by [facility] tablet 00:00: mouth 2 (two) Medical times Branch daily with meals. calcitrioL 2021-0 Yes [id number] .25ug Take 1 [facility] 0.25 mcg 5-24 capsule by [facility] o f capsule 00:00: mouth 00 daily. [facility] rosuvastati 2021-0 Yes [id number] 5mg Take 1 [facility] n 5 mg 5-24 tablet by [facility] tablet 00:00: mouth at [place] 00 bedtime. [facility] carvediloL 2021-0 Yes 25mg Take 1 [facility] 25 mg 5-24 tablet by [facility] tablet 00:00: mouth 2 (two) Medical times Branch daily with meals. calcitrioL 2021-0 Yes [id number] .25ug Take 1 [facility] 0.25 mcg 5-24 capsule by [facility] o f capsule 00:00: mouth 00 daily. [facility] rosuvastati 2021-0 Yes [id number] 5mg Take 1 [facility] n 5 mg 5-24 tablet by [facility] tablet 00:00: mouth at bedtime. [facility] carvediloL 0 Yes 25mg Take 1 [facility] 25 mg 5-24 tablet by [facility] tablet 00:00: mouth 2 (two) Medical times Branch daily with meals. calcitrioL 2021-0 Yes [id number] .25ug Take 1 [facility] 0.25 mcg 5-24 capsule by [facility] o f capsule 00:00: mouth daily. [facility] rosuvastati 2021-0 Yes [id number] 5mg Take 1 [facility] n 5 mg 5-24 tablet by [facility] of tablet 00:00: mouth at bedtime. [facility] carvediloL 0 Yes 25mg Take 1 [facility] 25 mg 5-24 tablet by [facility] tablet 00:00: mouth 2 (two) Medical times Branch daily with meals. calcitrioL 2021-0 Yes [id number] .25ug Take 1 [facility] 0.25 mcg 5-24 capsule by [facility] o f capsule 00:00: mouth daily. [facility] rosuvastati 2021-0 Yes [id number] 5mg Take 1 [facility] n 5 mg 5-24 tablet by [facility] tablet 00:00: mouth at bedtime. [facility] carvediloL 2021-0 Yes 25mg Take 1 [facility] 25 mg 5-24 tablet by [facility] tablet 00:00: mouth 2 (two) Medical times Branch daily with meals. calcitrioL 2021-0 Yes [id number] .25ug Take 1 [facility] 0.25 mcg 5-24 capsule by [facility] o f capsule 00:00: mouth 00 daily. [facility] rosuvastati 2021-0 Yes [id number] 5mg Take 1 [facility] n 5 mg 5-24 tablet by [facility] tablet 00:00: mouth at bedtime. [facility] carvediloL 0 Yes 25mg Take 1 [facility] 25 mg 5-24 tablet by [facility] tablet 00:00: mouth 2 (two) Medical times Branch daily with meals. calcitrioL 2021-0 Yes [id number] .25ug Take 1 [facility] 0.25 mcg 5-24 capsule by [facility] o f capsule 00:00: mouth daily. [facility] rosuvastati 0 Yes [id number] 5mg Take 1 [facility] n 5 mg 5-24 tablet by [facility] tablet 00:00: mouth at bedtime. [facility] carvediloL 0 Yes 25mg Take 1 [facility] 25 mg 5-24 tablet by [facility] tablet 00:00: mouth (two) Medical times Branch daily with meals. calcitrioL 0 Yes [id number] .25ug Take 1 [facility] 0.25 mcg 5-24 capsule by [facility] o f capsule 00:00: mouth daily. [facility] rosuvastati 0 Yes [id number] 5mg Take 1 [facility] n 5 mg 5-24 tablet by [facility] tablet 00:00: mouth at bedtime. [facility] carvediloL 0 Yes 25mg Take 1 [facility] 25 mg 5-24 tablet by [facility] tablet 00:00: mouth (two) Medical times Branch daily with meals. calcitrioL 2021-0 Yes [id number] .25ug Take 1 [facility] 0.25 mcg 5-24 capsule by [facility] o f capsule 00:00: mouth daily. [facility] rosuvastati 2021-0 Yes [id number] 5mg Take 1 [facility] n 5 mg 5-24 tablet by [facility] tablet 00:00: mouth at bedtime. [facility] carvediloL 0 Yes 25mg Take 1 [facility] 25 mg 5-24 tablet by [facility] tablet 00:00: mouth (two) Medical times Branch daily with meals. calcitrioL 2021-0 Yes [id number] .25ug Take 1 [facility] 0.25 mcg 5-24 capsule by [facility] o f capsule 00:00: mouth [place] 00 daily. [facility] rosuvastati 2021-0 Yes [id number] 5mg Take 1 [facility] n 5 mg 5-24 tablet by [facility] tablet 00:00: mouth at bedtime. [facility] carvediloL 2021-0 Yes 25mg Take 1 [facility] 25 mg 5-24 tablet by [facility] tablet 00:00: mouth 2 (two) Medical times Branch daily with meals. calcitrioL 2021-0 Yes [id number] .25ug Take 1 [facility] 0.25 mcg 5-24 capsule by [facility] o f capsule 00:00: mouth 00 daily. [facility] rosuvastati 2021-0 Yes [id number] 5mg Take 1 [facility] n 5 mg 5-24 tablet by [facility] tablet 00:00: mouth at bedtime. [facility] carvediloL 0 Yes 25mg Take 1 [facility] 25 mg 5-24 tablet by [facility] tablet 00:00: mouth 2 (two) Medical times Branch daily with meals. calcitrioL 2021-0 Yes [id number] .25ug Take 1 [facility] 0.25 mcg 5-24 capsule by [facility] o f capsule 00:00: mouth daily. [facility] rosuvastati 2021-0 Yes [id number] 5mg Take 1 [facility] n 5 mg 5-24 tablet by [facility] tablet 00:00: mouth at bedtime. [facility] carvediloL 0 Yes 25mg Take 1 [facility] 25 mg 5-24 tablet by [facility] tablet 00:00: mouth 2 (two) Medical times Branch daily with meals. calcitrioL 2021-0 Yes [id number] .25ug Take 1 [facility] 0.25 mcg 5-24 capsule by [facility] o f capsule 00:00: mouth 00 daily. [facility] rosuvastati 2021-0 Yes [id number] 5mg Take 1 [facility] n 5 mg 5-24 tablet by [facility] tablet 00:00: mouth at bedtime. [facility] carvediloL 2021-0 Yes 25mg Take 1 [facility] 25 mg 5-24 tablet by [facility] tablet 00:00: mouth 2 (two) Medical times Branch daily with meals. calcitrioL 2021-0 Yes [id number] .25ug Take 1 [facility] 0.25 mcg 5-24 capsule by [facility] o f capsule 00:00: mouth 00 daily. [facility] rosuvastati 2021-0 Yes [id number] 5mg Take 1 [facility] n 5 mg 5-24 tablet by [facility] tablet 00:00: mouth at [place] bedtime. [facility] carvediloL 2021-0 Yes 25mg Take 1 [facility] 25 mg 5-24 tablet by [facility] tablet 00:00: mouth 2 (two) Medical times Branch daily with meals. calcitrioL 2021-0 Yes [id number] .25ug Take 1 [facility] 0.25 mcg 5-24 capsule by [facility] o f capsule 00:00: mouth 00 daily. [facility] rosuvastati 2021-0 Yes [id number] 5mg Take 1 [facility] n 5 mg 5-24 tablet by [facility] tablet 00:00: mouth at [place] bedtime. [facility] carvediloL 2021-0 Yes 25mg Take 1 [facility] 25 mg 5-24 tablet by [facility] tablet 00:00: mouth (two) Medical times Branch daily with meals. calcitrioL 2021-0 Yes [id number] .25ug Take 1 [facility] 0.25 mcg 5-24 capsule by [facility] o f capsule 00:00: mouth daily. [facility] rosuvastati 2021-0 Yes [id number] 5mg Take 1 [facility] n 5 mg 5-24 tablet by [facility] tablet 00:00: mouth at [place] bedtime. [facility] carvediloL 2021-0 Yes 25mg Take 1 [facility] 25 mg 5-24 tablet by [facility] tablet 00:00: mouth (two) Medical times Branch daily with meals. rosuvastati 2021-0 Yes [id number] 5mg Take 1 [facility] n 5 mg 5-24 tablet by [facility] of tablet 00:00: mouth at [place] bedtime. [facility] carvediloL 2021-0 Yes 25mg Take 1 [facility] 25 mg 5-24 tablet by [facility] tablet 00:00: mouth 2 (two) Medical times Branch daily with meals. rosuvastati 2021-0 Yes [id number] 5mg Take 1 [facility] n 5 mg 5-24 tablet by [facility] tablet 00:00: mouth at [place] 00 bedtime. [facility] carvediloL 2022-0 Yes 25mg Take 1 [facility] 25 mg 5-24 tablet by [facility] tablet 00:00: mouth 2 (two) Medical times Branch daily with meals. rosuvastati 2022-0 Yes [id number] 5mg Take 1 [facility] n 5 mg 5-24 tablet by [facility] tablet 00:00: mouth at [place] bedtime. [facility] carvediloL 2022-0 Yes 25mg Take 1 [facility] 25 mg 5-24 tablet by [facility] of tablet 00:00: mouth 2 (two) Medical times Branch daily with meals. rosuvastati 2022-0 Yes [id number] 5mg Take 1 [facility] n 5 mg 5-24 tablet by [facility] of tablet 00:00: mouth at [place] bedtime. [facility] carvediloL 2-0 Yes 25mg Take 1 [facility] 25 mg 5-24 tablet by [facility] tablet 00:00: mouth 2 [place] (two) Medical times Branch daily with meals. rosuvastati 2022-0 Yes [id number] 5mg Take 1 [facility] n 5 mg 5-24 tablet by [facility] of tablet 00:00: mouth at [place] bedtime. [facility] carvediloL 2-0 Yes 25mg Take 1 [facility] 25 mg 5-24 tablet by [facility] tablet 00:00: mouth 2 [place] (two) Medical times Branch daily with meals. rosuvastati 2022-0 Yes [id number] 5mg Take 1 [facility] n 5 mg 5-24 tablet by [facility] of tablet 00:00: mouth at [place] bedtime. [facility] carvediloL 2022-0 Yes 25mg Take 1 [facility] 25 mg 5-24 tablet by [facility] tablet 00:00: mouth 2 [place] (two) Medical times Branch daily with meals. rosuvastati 2022-0 Yes [id number] 5mg Take 1 [facility] n 5 mg 5-24 tablet by [facility] of tablet 00:00: mouth at [place] bedtime. [facility] carvediloL 2022-0 Yes 25mg Take 1 [facility] 25 mg 5-24 tablet by [facility] of tablet 00:00: mouth 2 [place] (two) Medical times Branch daily with meals. rosuvastati 2022-0 Yes [id number] 5mg Take 1 [facility] n 5 mg 5-24 tablet by [facility] of tablet 00:00: mouth at [place] [address] bedtime. [facility] carvediloL 2021-0 Yes 25mg Take 1 [facility] 25 mg 5-24 tablet by [facility] tablet 00:00: mouth 2 [place] (two) Medical times Branch daily with meals. rosuvastati 2021-0 Yes [id number] 5mg Take 1 [facility] n 5 mg 5-24 tablet by [facility] of tablet 00:00: mouth at [place] [address] bedtime. [facility] carvediloL 2021-0 Yes 25mg Take 1 [facility] 25 mg 5-24 tablet by [facility] of tablet 00:00: mouth 2 [place] (two) Medical times Branch daily with meals. rosuvastati 2021-0 Yes [id number] 5mg Take 1 [facility] n 5 mg 5-24 tablet by [facility] of tablet 00:00: mouth at [place] [address] bedtime. [facility] carvediloL 2021-0 Yes 25mg Take 1 [facility] 25 mg 5-24 tablet by [facility] of tablet 00:00: mouth 2 [place] (two) Medical times Branch daily with meals. rosuvastati 2021-0 Yes [id number] 5mg Take 1 [facility] n 5 mg 5-24 tablet by [facility] of tablet 00:00: mouth at [place] [address] bedtime. [facility] carvediloL 2021-0 Yes 25mg Take 1 [facility] 25 mg 5-24 tablet by [facility] of tablet 00:00: mouth 2 [place] (two) Medical times Branch daily with meals. rosuvastati 2021-0 Yes [id number] 5mg Take 1 [facility] n 5 mg 5-24 tablet by [facility] of tablet 00:00: mouth at [place] [address] bedtime. [facility] carvediloL 2021-0 Yes 25mg Take 1 [facility] 25 mg 5-24 tablet by [facility] of tablet 00:00: mouth 2 [place] (two) Medical times Branch daily with meals. rosuvastati 2021-0 3- No [id number] 5mg Take 1 [facility] n 5 mg 5-24 07-13 tablet by [facility] of tablet 00:00: 00:00 mouth at [place] 00 :00 bedtime. [facility] carvediloL 2-0 2023- No 25mg Take 1 [facility] ers 25 mg 5-24 07-13 tablet by [facility] of tablet 00:00: 00:00 mouth 2 [place] 00 :00 (two) Medical times Branch daily with meals. carvediloL 2022-0 2023- No 25mg Take 1 [facility] ers 25 mg 5-24 07-13 tablet by [facility] of tablet 00:00: 00:00 mouth 2 [place] 00 :00 (two) Medical times Branch daily with meals. rosuvastati 2-0 3- No [id number] 5mg Take 1 [facility] n 5 mg 5-24 07-13 tablet by [facility] of tablet 00:00: 00:00 mouth at [place] 00 :00 bedtime. [facility] carvediloL 2021-0 2023- No 25mg Take 1 [facility] ers 25 mg 5-24 07-13 tablet by [facility] of tablet 00:00: 00:00 mouth 2 [place] 00 :00 (two) Medical times Branch daily with meals. rosuvastati 2021-0 3- No [id number] 5mg Take 1 [facility] n 5 mg 5-24 07-13 tablet by [facility] of tablet 00:00: 00:00 mouth at [place] 00 :00 bedtime. [facility] carvediloL 2021-0 3- No 25mg Take 1 [facility] ers 25 mg 5-24 07-13 tablet by [facility] of tablet 00:00: 00:00 mouth 2 [place] 00 :00 (two) Medical times Branch daily with meals. rosuvastati 2-0 3- No [id number] 5mg Take 1 [facility] n 5 mg 5-24 07-13 tablet by [facility] of tablet 00:00: 00:00 mouth at [place] 00 :00 bedtime. [facility] calcitrioL 2021-0 3- No [id number] .25ug Take 1 [facility] 0.25 mcg 5-24 06-15 capsule by [facility] of capsule 00:00: 00:00 mouth [place] 00 :00 daily. [facility] calcitrioL 2022-0 3- No [id number] .25ug Take 1 [facility] 0.25 mcg 5-24 06-15 capsule by [facility] of capsule 00:00: 00:00 mouth [place] 00 :00 daily. [facility] calcitrioL 2-0 3- No [id number] .25ug Take 1 [facility] 0.25 mcg 5-24 06-15 capsule by [facility] of capsule 00:00: 00:00 mouth [place] 00 :00 daily. [facility] calcitrioL 2021-2022- No [id number] .25ug Take 1 [facility] 0.25 mcg 5-24 06-15 capsule by [facility] of capsule 00:00: 00:00 mouth [place] 00 :00 daily. [facility] calcitrioL 2021-0 2022- No [id number] .25ug Take 1 [facility] 0.25 mcg 5-24 06-15 capsule by [facility] of capsule 00:00: 00:00 mouth [place] 00 :00 daily. [facility] irbesartan 2021-2022- No [id number] 150mg Take 1 [facility] 150 mg 5-24 04-21 tablet by [facility] tablet 00:00: 00:00 mouth at [place] 00 :00 bedtime. [facility] irbesartan 2021-2022- No [id number] 150mg Take 1 [facility] 150 mg 5-24 04-21 tablet by [facility] tablet 00:00: 00:00 mouth at [place] 00 :00 bedtime. [facility] famotidine 2021-2021- No 20mg Take 1 [facility] ers 20 mg 5-24 12-19 tablet by [facility] tablet 00:00: 00:00 mouth 2 [place] 00 :00 (two) Medical times Branch daily. omeprazole 2021-0 2021- No [id number] 20mg Take 1 [facility] 20 mg 5-24 12-19 capsule by [facility] of capsule 00:00: 00:00 mouth [place] 00 :00 daily. [facility] famotidine 2021- No 20mg Take 1 [facility] ers 20 mg 5-24 12-19 tablet by [facility] of tablet 00:00: 00:00 mouth 2 [place] 00 :00 (two) Medical times Branch daily. omeprazole 2021-2021- No [id number] 20mg Take 1 [facility] 20 mg 5-24 12-19 capsule by [facility] of capsule 00:00: 00:00 mouth [place] 00 :00 daily. [facility] glipiZIDE 5 2021-0 Yes [id number] TAKE 2 [facility] mg tablet 3-09 TABLETS BY [facility] of 00:00: MOUTH [place] 00 EVERY Medical MORNING Branch AND TAKE 1 TABLET BY MOUTH EVERY EVENING glipiZIDE 5 2021-0 Yes [id number] TAKE 2 [facility] mg tablet 3-09 TABLETS BY [facility] of 00:00: MOUTH [place] 00 EVERY Medical MORNING Branch AND TAKE 1 TABLET BY MOUTH EVERY EVENING glipiZIDE 5 2021-0 Yes [id number] TAKE 2 [facility] mg tablet 3-09 TABLETS BY [facility] of 00:00: MOUTH [place] 00 EVERY Medical MORNING Branch AND TAKE 1 TABLET BY MOUTH EVERY EVENING glipiZIDE 5 2021-0 Yes [id number] TAKE 2 [facility] mg tablet 3-09 TABLETS BY [facility] of 00:00: MOUTH [place] 00 EVERY Medical MORNING Branch AND TAKE 1 TABLET BY MOUTH EVERY EVENING glipiZIDE 5 2021-0 2022- No [id number] TAKE 2 [facility] mg tablet 3-08 01- TABLETS BY [facility] of 00:00: 00:00 MOUTH [place] 00 :00 EVERY Medical MORNING Branch AND TAKE 1 TABLET BY MOUTH EVERY EVENING glipiZIDE 5 2021-0 2021- No [id number] TAKE 2 [facility] mg tablet 3-08 01- TABLETS BY [facility] of 00:00: 00:00 MOUTH [place] 00 :00 EVERY Medical MORNING Branch AND TAKE 1 TABLET BY MOUTH EVERY EVENING MONTELUKAST 2021-0 2021- No [id number] 10mg TAKE 1 [facility] 10 mg 3-07 31-17 TABLET BY [facility] of tablet 00:00: 00:00 MOUTH [place] 00 :00 EVERY Medical EVENING Branch cycloSPORIN 2021-0 Yes [id number] 1[drp] Place 1 [facility] E 2-21 Drop in [facility] of (RESTASIS) 00:00: both eyes [place] 0.05 % 00 every 12 Medical drops (twelve) Branch hours. cycloSPORIN 2021-0 Yes [id number] 1[drp] Place 1 [facility] E 2-21 Drop in [facility] of (RESTASIS) 00:00: both eyes [place] 0.05 % 00 every 12 Medical drops (twelve) Branch hours. cycloSPORIN 2021-0 Yes [id number] 1[drp] Place 1 [facility] E 2-21 Drop in [facility]y of (RESTASIS) 00:00: both eyes [place] 0.05 % 00 every 12 Medical drops (twelve) Branch hours. cycloSPORIN 2021-0 Yes [id number] 1[drp] Place 1 [facility] E 2-21 Drop in [facility] of (RESTASIS) 00:00: both eyes [place] 0.05 % 00 every 12 Medical drops (twelve) Branch hours. cycloSPORIN 2021-0 Yes [id number] 1[drp] Place 1 [facility] E 2-21 Drop in [facility] of (RESTASIS) 00:00: both eyes [place] 0.05 % 00 every 12 Medical drops (twelve) Branch hours. cycloSPORIN 2022-0 Yes [id number] 1[drp] Place 1 [facility] E 2-21 Drop in [facility] of (RESTASIS) 00:00: both eyes [place] 0.05 % 00 every 12 Medical drops (twelve) Branch hours. cycloSPORIN 2022-0 Yes [id number] 1[drp] Place 1 [facility] E 2-21 Drop in [facility] of (RESTASIS) 00:00: both eyes [place] 0.05 % 00 every 12 Medical drops (twelve) Branch hours. cycloSPORIN 2022-0 Yes [id number] 1[drp] Place 1 [facility] E 2-21 Drop in [facility]y of (RESTASIS) 00:00: both eyes [place] 0.05 % 00 every 12 Medical drops (twelve) Branch hours. cycloSPORIN 2022-0 Yes [id number] 1[drp] Place 1 [facility] E 2-21 Drop in [facility] of (RESTASIS) 00:00: both eyes [place] 0.05 % 00 every 12 Medical drops (twelve) Branch hours. cycloSPORIN 2022-0 Yes [id number] 1[drp] Place 1 [facility] E 2-21 Drop in ity of (RESTASIS) 00:00: both eyes [place] 0.05 % 00 every 12 Medical drops (twelve) Branch hours. cycloSPORIN 2022-0 Yes [id number] 1[drp] Place 1 [facility] E 2-21 Drop in ity of (RESTASIS) 00:00: both eyes [place] 0.05 % 00 every 12 Medical drops (twelve) Branch hours. cycloSPORIN 2022-0 Yes [id number] 1[drp] Place 1 [facility] E 2-21 Drop in ity of (RESTASIS) 00:00: both eyes [place] 0.05 % 00 every 12 Medical drops (twelve) Branch hours. cycloSPORIN 2022-0 Yes [id number] 1[drp] Place 1 [facility] E 2-21 Drop in ity of (RESTASIS) 00:00: both eyes [place] 0.05 % 00 every 12 Medical drops (twelve) Branch hours. cycloSPORIN 2022-0 Yes [id number] 1[drp] Place 1 [facility] E 2-21 Drop in ity of (RESTASIS) 00:00: both eyes [place] 0.05 % 00 every 12 Medical drops (twelve) Branch hours. cycloSPORIN 2022-0 Yes [id number] 1[drp] Place 1 [facility] E 2-21 Drop in ity of (RESTASIS) 00:00: both eyes [place] 0.05 % 00 every 12 Medical drops (twelve) Branch hours. cycloSPORIN 2022-0 Yes [id number] 1[drp] Place 1 [facility] E 2-21 Drop in ity of (RESTASIS) 00:00: both eyes [place] 0.05 % 00 every 12 Medical drops (twelve) Branch hours. cycloSPORIN 2022-0 Yes [id number] 1[drp] Place 1 [facility] E 2-21 Drop in ity of (RESTASIS) 00:00: both eyes [place] 0.05 % 00 every 12 Medical drops (twelve) Branch hours. cycloSPORIN 2022-0 Yes [id number] 1[drp] Place 1 [facility] E 2-21 Drop in ity of (RESTASIS) 00:00: both eyes [place] 0.05 % 00 every 12 Medical drops (twelve) Branch hours. cycloSPORIN 2022-0 Yes [id number] 1[drp] Place 1 [facility] E 2-21 Drop in ity of (RESTASIS) 00:00: both eyes [place] 0.05 % 00 every 12 Medical drops (twelve) Branch hours. cycloSPORIN 2022-0 Yes [id number] 1[drp] Place 1 [facility] E 2-21 Drop in ity of (RESTASIS) 00:00: both eyes [place] 0.05 % 00 every 12 Medical drops (twelve) Branch hours. cycloSPORIN 2022-0 Yes [id number] 1[drp] Place 1 [facility] E 2-21 Drop in ity of (RESTASIS) 00:00: both eyes [place] 0.05 % 00 every 12 Medical drops (twelve) Branch hours. cycloSPORIN 2022-0 Yes [id number] 1[drp] Place 1 [facility] E 2-21 Drop in ity of (RESTASIS) 00:00: both eyes [place] 0.05 % 00 every 12 Medical drops (twelve) Branch hours. cycloSPORIN 2022-0 Yes [id number] 1[drp] Place 1 [facility] E 2-21 Drop in ity of (RESTASIS) 00:00: both eyes [place] 0.05 % 00 every 12 Medical drops (twelve) Branch hours. cycloSPORIN 2022-0 Yes [id number] 1[drp] Place 1 [facility] E 2-21 Drop in ity of (RESTASIS) 00:00: both eyes [place] 0.05 % 00 every 12 Medical drops (twelve) Branch hours. cycloSPORIN 2022-0 Yes [id number] 1[drp] Place 1 [facility] E 2-21 Drop in ity of (RESTASIS) 00:00: both eyes [place] 0.05 % 00 every 12 Medical drops (twelve) Branch hours. cycloSPORIN 2022-0 Yes [id number] 1[drp] Place 1 [facility] E 2-21 Drop in ity of (RESTASIS) 00:00: both eyes [place] 0.05 % 00 every 12 Medical drops (twelve) Branch hours. cycloSPORIN 2022-0 Yes [id number] 1[drp] Place 1 [facility] E 2-21 Drop in ity of (RESTASIS) 00:00: both eyes [place] 0.05 % 00 every 12 Medical drops (twelve) Branch hours. cycloSPORIN 2022-0 Yes [id number] 1[drp] Place 1 [facility] E 2-21 Drop in ity of (RESTASIS) 00:00: both eyes [place] 0.05 % 00 every 12 Medical drops (twelve) Branch hours. cycloSPORIN 2022-0 Yes [id number] 1[drp] Place 1 [facility] E 2-21 Drop in ity of (RESTASIS) 00:00: both eyes [place] 0.05 % 00 every 12 Medical drops (twelve) Branch hours. cycloSPORIN 2022-0 Yes [id number] 1[drp] Place 1 [facility] E 2-21 Drop in ity of (RESTASIS) 00:00: both eyes [place] 0.05 % 00 every 12 Medical drops (twelve) Branch hours. cycloSPORIN 2022-0 Yes [id number] 1[drp] Place 1 [facility] E 2-21 Drop in ity of (RESTASIS) 00:00: both eyes [place] 0.05 % 00 every 12 Medical drops (twelve) Branch hours. cycloSPORIN 2022-0 Yes [id number] 1[drp] Place 1 [facility] E 2-21 Drop in ity of (RESTASIS) 00:00: both eyes [place] 0.05 % 00 every 12 Medical drops (twelve) Branch hours. cycloSPORIN 2022-0 Yes [id number] 1[drp] Place 1 [facility] E 2-21 Drop in ity of (RESTASIS) 00:00: both eyes [place] 0.05 % 00 every 12 Medical drops (twelve) Branch hours. cycloSPORIN 2022-0 Yes [id number] 1[drp] Place 1 [facility] E 2-21 Drop in ity of (RESTASIS) 00:00: both eyes [place] 0.05 % 00 every 12 Medical drops (twelve) Branch hours. cycloSPORIN 2022-0 Yes [id number] 1[drp] Place 1 [facility] E 2-21 Drop in ity of (RESTASIS) 00:00: both eyes [place] 0.05 % 00 every 12 Medical drops (twelve) Branch hours. cycloSPORIN 2022-0 Yes [id number] 1[drp] Place 1 [facility] E 2-21 Drop in ity of (RESTASIS) 00:00: both eyes [place] 0.05 % 00 every 12 Medical drops (twelve) Branch hours. cycloSPORIN 2022-0 Yes [id number] 1[drp] Place 1 [facility] E 2-21 Drop in ity of (RESTASIS) 00:00: both eyes [place] 0.05 % 00 every 12 Medical drops (twelve) Branch hours. cycloSPORIN 2022-0 Yes [id number] 1[drp] Place 1 [facility] E 2-21 Drop in ity of (RESTASIS) 00:00: both eyes [place] 0.05 % 00 every 12 Medical drops (twelve) Branch hours. cycloSPORIN 2022-0 Yes [id number] 1[drp] Place 1 [facility] E 2-21 Drop in ity of (RESTASIS) 00:00: both eyes [place] 0.05 % 00 every 12 Medical drops (twelve) Branch hours. cycloSPORIN 2022-0 Yes [id number] 1[drp] Place 1 [facility] E 2-21 Drop in ity of (RESTASIS) 00:00: both eyes [place] 0.05 % 00 every 12 Medical drops (twelve) Branch hours. cycloSPORIN 2022-0 Yes [id number] 1[drp] Place 1 [facility] E 2-21 Drop in ity of (RESTASIS) 00:00: [place] eyes [place] 0.05 % 00 every 12 Medical drops (twelve) Branch hours. cycloSPORIN Yes [id number] 1[drp] Place 1 [facility] E 2-21 Drop in ity of (RESTASIS) 00:00: [place] eyes [place] 0.05 % 00 every 12 Medical drops (twelve) Branch hours. cycloSPORIN 2022- No [id number] 1[drp] Place 1 [facility] E 2-21 03-20 Drop in ity of (RESTASIS) 00:00: 00:00 both eyes [place] 0.05 % 00 :00 every 12 Medical drops (twelve) Branch hours. cycloSPORIN 2022- No [id number] 1[drp] Place 1 [facility] E 2-21 03-20 Drop in ity of (RESTASIS) 00:00: 00:00 both eyes [place] 0.05 % 00 :00 every 12 Medical drops (twelve) Branch hours. omeprazole 2020-11- No [id number] 20mg Take 1 [facility] 20 mg 1-10 05-23 capsule by ity of capsule 00:00: 00:00 mouth [place] 00 :00 daily. [facility] PLUS 2020-11 Yes TAKE 1 [facility] ers 27 mg iron- 0-13 TABLET BY ity of 1 mg tablet 00:00: [facility]TH [place] [facility] 27 mg iron- 0-13 TABLET BY ity of 1 mg tablet 00:00: [facility]OUTH [place] [facility] 27 mg iron- 0-13 TABLET BY ity of 1 mg tablet 00:00: MOUTH [place] [facility] 27 mg iron- 0-13 TABLET BY ity of 1 mg tablet 00:00: MOUTH [place] [facility] 27 mg iron- 0-13 TABLET BY ity of 1 mg tablet 00:00: MOUTH [place] [facility] 27 mg iron- 0-13 TABLET BY ity of 1 mg tablet 00:00: MOUTH [place] [facility] ers 27 mg iron- 0-13 TABLET BY ity of 1 mg tablet 00:00: MOUTH [place] 00 DAILY [facility] 2020-11 Yes TAKE 1 [facility] ers 27 mg iron- 0-13 TABLET BY ity of 1 mg tablet 00:00: MOUTH [place] 00 DAILY [facility] 2020-11 Yes TAKE 1 [facility] ers 27 mg iron- 0-13 TABLET BY ity of 1 mg tablet 00:00: MOUTH [place] 00 DAILY [facility] 2020-11- No TAKE 1 [facility] vers 27 mg iron- 0-13 10-13 TABLET BY it y of 1 mg tablet 00:00: 00:[place] M[place]TH [place] 00 :00 DAILY [facility] 2020-11- No TAKE 1 [facility] vers 27 mg iron- 0-13 10-13 TABLET BY it y of 1 mg tablet 00:00: 00:[place] MOUTH [place] 00 :00 DAILY [facility] 2020-11- No TAKE 1 [facility] vers 27 mg iron- 0-13 10-13 TABLET BY it y of 1 mg tablet 00:00: 00:[place] MOUTH [place] 00 :00 DAILY Medical Branch SPIRONOLACT 2020-11- No [id number] 25mg TAKE 1 [facility] ONE 25 mg 0-13 08-14 TABLET BY ity of tablet 00:00: 00:00 MOUTH [place] 00 :00 DAILY Medical Branch SPIRONOLACT 2020-11- No [id number] 25mg TAKE 1 [facility] ONE 25 mg 0-13 08-14 TABLET BY ity of tablet 00:00: 00:00 MOUTH [place] 00 :00 DAILY Medical Branch PNV,calcium 2020- No 1{tbl} Take 1 U nivers 72-iron-fol -12 02-13 tablet by it y of ic acid 00:00: 00:00 mouth [place] (PREPLUS) 00 :00 daily. Medical 27 mg iron- Branch 1 mg tablet predniSONE 2021- No [id number] 5mg Take 1 [facility] 5 mg tablet 06-12 tablet by it y of 00:00: 00:00 mouth [place] 00 :00 daily. Medical Branch predniSONE 2021- No [id number] 5mg Take 1 [facility] 5 mg tablet 06-12 tablet by it y of 00:00: 00:00 mouth [place] 00 :00 daily. Medical Branch irbesartan 2020-2021- No [id number] 150mg Take 1 [facility] 150 mg 7-15 05-23 tablet by ity of tablet 00:00: 00:00 mouth at [place] 00 :00 bedtime. Medical Branch irbesartan 2020-0 2021- No [id number] 150mg Take 1 [facility] 150 mg 7-15 05-23 tablet by ity of tablet 00:00: 00:00 mouth at [place] 00 :00 bedtime. Medical Branch MONTELUKAST 2020-2020- No [id number] 10mg TAKE 1 [facility] 10 mg 6-14 11-26 TABLET BY ity of tablet 00:00: 00:00 MOUTH [place] 00 :00 EVERY Medical EVENING Branch MONTELUKAST 2020-2020- No [id number] 10mg TAKE 1 [facility] 10 mg 6-14 11-26 TABLET BY ity of tablet 00:00: 00:00 MOUTH [place] 00 :00 EVERY Medical EVENING Branch FUROSEMIDE 2020-0 2021- No TAKE 1 [facility] ers 20 mg 6-11 08-05 TABLET BY ity of tablet 00:00: 00:00 MOUTH [place] 00 :00 EVERY Medical MORNING Branch AND EVERY EVENING FUROSEMIDE 2020-0 2021- No TAKE 1 [facility] ers 20 mg 6-11 08-05 TABLET BY ity of tablet 00:00: 00:00 MOUTH [place] 00 :00 EVERY Medical MORNING Branch AND EVERY EVENING FUROSEMIDE 2020-0 2021- No TAKE 1 [facility] ers 20 mg 6-11 08-05 TABLET BY ity of tablet 00:00: 00:00 MOUTH [place] 00 :00 EVERY Medical MORNING Branch AND EVERY EVENING carvediloL 2020-2020- No 25mg Take 1 [facility] ers 25 mg 6-10 12-01 tablet by ity of tablet 00:00: 00:00 mouth 2 [place] 00 :00 (two) Medical times Branch daily with meals. carvediloL 2020-2020- No 25mg Take 1 [facility] ers 25 mg 6-10 12-01 tablet by ity of tablet 00:00: 00:00 mouth 2 [place] 00 :00 (two) Medical times Branch daily with meals. mycophenola 2020-2021- No 540mg Take 3 Un aleksandr te sodium 5-17 - tablets by ity of 180 mg EC 00:00: 00:00 mouth [place] tablet 00 :00 every 12 Medical (twelve) Branch hours. Z94.0 mycophenola 2021- No 540mg Take 3 Un aleksandr te sodium 5-17 - tablets by ity of 180 mg EC 00:00: 00:00 mouth [place] tablet 00 :00 every 12 Medical (twelve) Branch hours. Z94.0 glipiZIDE 5 2020- No [id number] Take 10 mg [facility] mg tablet 03-0718 qam and 5 ity of 00:00: 00:00 mg qpm [place] 00 :00 Medical Branch glipiZIDE 5 2020- No [id number] Take 10 mg [facility] mg tablet -15 18 qam and 5 ity of 00:00: 00:00 mg qpm [place] 00 :00 Medical Branch CYCLOSPORIN 2021- No [id number] TAKE 1 [facility] E 25 mg 02-25-13 CAPSULE BY ity o f capsule 00:00: 00:00 MOUTH [place] 00 :00 EVERY 12 Medical HOURS Branch CYCLOSPORIN 0 2021- No [id number] TAKE 1 [facility] E 25 mg -03 28-13 CAPSULE BY ity o f capsule 00:00: 00:00 MOUTH [place] 00 :00 EVERY 12 Medical HOURS Branch CALCITRIOL 2021- No [id number] .25ug TAKE 1 [facility] 0.25 mcg 01-23 CAPSULE BY ity of capsule 00:00: 00:00 MOUTH [place] 00 :00 DAILY Medical Branch CALCITRIOL 2021- No [id number] .25ug TAKE 1 [facility] 0.25 mcg 01-23-08 CAPSULE BY ity of capsule 00:00: 00:00 MOUTH [place] 00 :00 DAILY Medical Branch omeprazole 2020- No [id number] 20mg Take 1 [facility] 20 mg 12-25- capsule by ity of capsule 00:00: 00:00 mouth [place] 00 :00 daily. Medical Branch proMETHazin Yes 12.5mg Take 0.5 [facility] e 25 mg 1-14 tablets by ity of tablet 00:00: mouth [place] 00 every 6 Medical (six) Branch hours as needed for Nausea and Vomiting (N/V). proMETHazin 2021-0 Yes 12.5mg Take 0.5 [facility] e 25 mg 1-14 tablets by ity of tablet 00:00: mouth [place] 00 every 6 Medical (six) Branch hours as needed for Nausea and Vomiting (N/V). proMETHazin 2021-0 Yes 12.5mg Take 0.5 [facility] e 25 mg 1-14 tablets by ity of tablet 00:00: mouth [place] 00 every 6 Medical (six) Branch hours as needed for Nausea and Vomiting (N/V). proMETHazin 2021-0 Yes 12.5mg Take 0.5 [facility] e 25 mg 1-14 tablets by ity of tablet 00:00: mouth [place] 00 every 6 Medical (six) Branch hours as needed for Nausea and Vomiting (N/V). proMETHazin 2021-0 Yes 12.5mg Take 0.5 [facility] e 25 mg 1-14 tablets by ity of tablet 00:00: mouth [place] 00 every 6 Medical (six) Branch hours as needed for Nausea and Vomiting (N/V). proMETHazin 2021-0 Yes 12.5mg Take 0.5 [facility] e 25 mg 1-14 tablets by ity of tablet 00:00: mouth [place] 00 every 6 Medical (six) Branch hours as needed for Nausea and Vomiting (N/V). proMETHazin 2021-0 Yes 12.5mg Take 0.5 [facility] e 25 mg 1-14 tablets by ity of tablet 00:00: mouth [place] 00 every 6 Medical (six) Branch hours as needed for Nausea and Vomiting (N/V). proMETHazin 2021-0 Yes 12.5mg Take 0.5 [facility] e 25 mg 1-14 tablets by ity of tablet 00:00: mouth [place] 00 every 6 Medical (six) Branch hours as needed for Nausea and Vomiting (N/V). proMETHazin 2021-0 Yes 12.5mg Take 0.5 [facility] e 25 mg 1-14 tablets by ity of tablet 00:00: mouth [place] 00 every 6 Medical (six) Branch hours as needed for Nausea and Vomiting (N/V). proMETHazin 2021-0 Yes 12.5mg Take 0.5 [facility] e 25 mg 1-14 tablets by ity of tablet 00:00: mouth [place] 00 every 6 Medical (six) Branch hours as needed for Nausea and Vomiting (N/V). proMETHazin 2021-0 Yes 12.5mg Take 0.5 [facility] e 25 mg 1-14 tablets by ity of tablet 00:00: mouth [place] 00 every 6 Medical (six) Branch hours as needed for Nausea and Vomiting (N/V). proMETHazin 2021-0 Yes 12.5mg Take 0.5 [facility] e 25 mg 1-14 tablets by ity of tablet 00:00: mouth [place] 00 every 6 Medical (six) Branch hours as needed for Nausea and Vomiting (N/V). proMETHazin 2021-0 Yes 12.5mg Take 0.5 [facility] e 25 mg 1-14 tablets by ity of tablet 00:00: mouth [place] 00 every 6 Medical (six) Branch hours as needed for Nausea and Vomiting (N/V). proMETHazin 2021-0 Yes 12.5mg Take 0.5 [facility] e 25 mg 1-14 tablets by ity of tablet 00:00: mouth [place] 00 every 6 Medical (six) Branch hours as needed for Nausea and Vomiting (N/V). proMETHazin 2021-0 Yes 12.5mg Take 0.5 [facility] e 25 mg 1-14 tablets by ity of tablet 00:00: mouth [place] 00 every 6 Medical (six) Branch hours as needed for Nausea and Vomiting (N/V). proMETHazin 2021-0 Yes 12.5mg Take 0.5 [facility] e 25 mg 1-14 tablets by ity of tablet 00:00: mouth [place] 00 every 6 Medical (six) Branch hours as needed for Nausea and Vomiting (N/V). proMETHazin 2021-0 Yes 12.5mg Take 0.5 [facility] e 25 mg 1-14 tablets by ity of tablet 00:00: mouth [place] 00 every 6 Medical (six) Branch hours as needed for Nausea and Vomiting (N/V). proMETHazin 2021-0 Yes 12.5mg Take 0.5 [facility] e 25 mg 1-14 tablets by ity of tablet 00:00: mouth [place] 00 every 6 Medical (six) Branch hours as needed for Nausea and Vomiting (N/V). proMETHazin 2021-0 Yes 12.5mg Take 0.5 [facility] e 25 mg 1-14 tablets by ity of tablet 00:00: mouth [place] 00 every 6 Medical (six) Branch hours as needed for Nausea and Vomiting (N/V). proMETHazin 2021-0 Yes 12.5mg Take 0.5 [facility] e 25 mg 1-14 tablets by ity of tablet 00:00: mouth [place] 00 every 6 Medical (six) Branch hours as needed for Nausea and Vomiting (N/V). proMETHazin 2021-0 Yes 12.5mg Take 0.5 [facility] e 25 mg 1-14 tablets by ity of tablet 00:00: mouth [place] 00 every 6 Medical (six) Branch hours as needed for Nausea and Vomiting (N/V). proMETHazin 2021-0 Yes 12.5mg Take 0.5 [facility] e 25 mg 1-14 tablets by ity of tablet 00:00: mouth [place] 00 every 6 Medical (six) Branch hours as needed for Nausea and Vomiting (N/V). proMETHazin 2021-0 Yes 12.5mg Take 0.5 [facility] e 25 mg 1-14 tablets by ity of tablet 00:00: mouth [place] 00 every 6 Medical (six) Branch hours as needed for Nausea and Vomiting (N/V). proMETHazin 2021-0 Yes 12.5mg Take 0.5 [facility] e 25 mg 1-14 tablets by ity of tablet 00:00: mouth [place] 00 every 6 Medical (six) Branch hours as needed for Nausea and Vomiting (N/V). proMETHazin 2021-0 Yes 12.5mg Take 0.5 [facility] e 25 mg 1-14 tablets by ity of tablet 00:00: mouth [place] 00 every 6 Medical (six) Branch hours as needed for Nausea and Vomiting (N/V). proMETHazin 2021-0 Yes 12.5mg Take 0.5 [facility] e 25 mg 1-14 tablets by ity of tablet 00:00: mouth [place] 00 every 6 Medical (six) Branch hours as needed for Nausea and Vomiting (N/V). proMETHazin 2021-0 Yes 12.5mg Take 0.5 [facility] e 25 mg 1-14 tablets by ity of tablet 00:00: mouth [place] 00 every 6 Medical (six) Branch hours as needed for Nausea and Vomiting (N/V). proMETHazin 2021-0 Yes 12.5mg Take 0.5 [facility] e 25 mg 1-14 tablets by ity of tablet 00:00: mouth [place] 00 every 6 Medical (six) Branch hours as needed for Nausea and Vomiting (N/V). proMETHazin 2021-0 Yes 12.5mg Take 0.5 [facility] e 25 mg 1-14 tablets by ity of tablet 00:00: mouth [place] 00 every 6 Medical (six) Branch hours as needed for Nausea and Vomiting (N/V). proMETHazin 2021-0 Yes 12.5mg Take 0.5 [facility] e 25 mg 1-14 tablets by ity of tablet 00:00: mouth [place] 00 every 6 Medical (six) Branch hours as needed for Nausea and Vomiting (N/V). proMETHazin 2021-0 Yes 12.5mg Take 0.5 [facility] e 25 mg 1-14 tablets by ity of tablet 00:00: mouth [place] 00 every 6 Medical (six) Branch hours as needed for Nausea and Vomiting (N/V). proMETHazin 2021-0 Yes 12.5mg Take 0.5 [facility] e 25 mg 1-14 tablets by ity of tablet 00:00: mouth [place] 00 every 6 Medical (six) Branch hours as needed for Nausea and Vomiting (N/V). proMETHazin 2021-0 Yes 12.5mg Take 0.5 [facility] e 25 mg 1-14 tablets by ity of tablet 00:00: mouth [place] 00 every 6 Medical (six) Branch hours as needed for Nausea and Vomiting (N/V). proMETHazin 2021-0 Yes 12.5mg Take 0.5 [facility] e 25 mg 1-14 tablets by ity of tablet 00:00: mouth [place] 00 every 6 Medical (six) Branch hours as needed for Nausea and Vomiting (N/V). proMETHazin 2021-0 Yes 12.5mg Take 0.5 [facility] e 25 mg 1-14 tablets by ity of tablet 00:00: mouth [place] 00 every 6 Medical (six) Branch hours as needed for Nausea and Vomiting (N/V). proMETHazin 2021-0 Yes 12.5mg Take 0.5 [facility] e 25 mg 1-14 tablets by ity of tablet 00:00: mouth [place] 00 every 6 Medical (six) Branch hours as needed for Nausea and Vomiting (N/V). proMETHazin 2021-0 Yes 12.5mg Take 0.5 [facility] e 25 mg 1-14 tablets by ity of tablet 00:00: mouth [place] 00 every 6 Medical (six) Branch hours as needed for Nausea and Vomiting (N/V). proMETHazin 2021-0 Yes 12.5mg Take 0.5 [facility] e 25 mg 1-14 tablets by ity of tablet 00:00: mouth [place] 00 every 6 Medical (six) Branch hours as needed for Nausea and Vomiting (N/V). proMETHazin 2021-0 Yes 12.5mg Take 0.5 [facility] e 25 mg 1-14 tablets by ity of tablet 00:00: mouth [place] 00 every 6 Medical (six) Branch hours as needed for Nausea and Vomiting (N/V). proMETHazin 2021-0 Yes 12.5mg Take 0.5 [facility] e 25 mg 1-14 tablets by ity of tablet 00:00: mouth [place] 00 every 6 Medical (six) Branch hours as needed for Nausea and Vomiting (N/V). proMETHazin 2021-0 Yes 12.5mg Take 0.5 [facility] e 25 mg 1-14 tablets by ity of tablet 00:00: mouth [place] 00 every 6 Medical (six) Branch hours as needed for Nausea and Vomiting (N/V). proMETHazin 2021-0 Yes 12.5mg Take 0.5 [facility] e 25 mg 1-14 tablets by ity of tablet 00:00: mouth [place] 00 every 6 Medical (six) Branch hours as needed for Nausea and Vomiting (N/V). proMETHazin 2021-0 Yes 12.5mg Take 0.5 [facility] e 25 mg 1-14 tablets by ity of tablet 00:00: mouth [place] 00 every 6 Medical (six) Branch hours as needed for Nausea and Vomiting (N/V). proMETHazin 2021-0 Yes 12.5mg Take 0.5 [facility] e 25 mg 1-14 tablets by ity of tablet 00:00: mouth [place] 00 every 6 Medical (six) Branch hours as needed for Nausea and Vomiting (N/V). proMETHazin 2021-0 Yes 12.5mg Take 0.5 [facility] e 25 mg 1-14 tablets by ity of tablet 00:00: mouth [place] 00 every 6 Medical (six) Branch hours as needed for Nausea and Vomiting (N/V). proMETHazin 2021-0 Yes 12.5mg Take 0.5 [facility] e 25 mg 1-14 tablets by ity of tablet 00:00: mouth [place] 00 every 6 Medical (six) Branch hours as needed for Nausea and Vomiting (N/V). proMETHazin 2021-0 Yes 12.5mg Take 0.5 [facility] e 25 mg 1-14 tablets by ity of tablet 00:00: mouth [place] 00 every 6 Medical (six) Branch hours as needed for Nausea and Vomiting (N/V). proMETHazin 2021-0 Yes 12.5mg Take 0.5 [facility] e 25 mg 1-14 tablets by ity of tablet 00:00: mouth [place] 00 every 6 Medical (six) Branch hours as needed for Nausea and Vomiting (N/V). proMETHazin 2021-0 Yes 12.5mg Take 0.5 [facility] e 25 mg 1-14 tablets by ity of tablet 00:00: mouth [place] 00 every 6 Medical (six) Branch hours as needed for Nausea and Vomiting (N/V). proMETHazin 2021-0 Yes 12.5mg Take 0.5 [facility] e 25 mg 1-14 tablets by ity of tablet 00:00: mouth [place] 00 every 6 Medical (six) Branch hours as needed for Nausea and Vomiting (N/V). proMETHazin 2021-0 Yes 12.5mg Take 0.5 [facility] e 25 mg 1-14 tablets by ity of tablet 00:00: mouth [place] 00 every 6 Medical (six) Branch hours as needed for Nausea and Vomiting (N/V). proMETHazin 2021-0 Yes 12.5mg Take 0.5 [facility] e 25 mg 1-14 tablets by ity of tablet 00:00: mouth [place] 00 every 6 Medical (six) Branch hours as needed for Nausea and Vomiting (N/V). proMETHazin 2021-0 Yes 12.5mg Take 0.5 [facility] e 25 mg 1-14 tablets by ity of tablet 00:00: mouth [place] 00 every 6 Medical (six) Branch hours as needed for Nausea and Vomiting (N/V). proMETHazin 2021-0 Yes 12.5mg Take 0.5 [facility] e 25 mg 1-14 tablets by ity of tablet 00:00: mouth [place] 00 every 6 Medical (six) Branch hours as needed for Nausea and Vomiting (N/V). proMETHazin 2021-0 Yes 12.5mg Take 0.5 [facility] e 25 mg 1-14 tablets by ity of tablet 00:00: mouth [place] 00 every 6 Medical (six) Branch hours as needed for Nausea and Vomiting (N/V). proMETHazin 2021-0 Yes 12.5mg Take 0.5 [facility] e 25 mg 1-14 tablets by ity of tablet 00:00: mouth [place] 00 every 6 Medical (six) Branch hours as needed for Nausea and Vomiting (N/V). proMETHazin 2021-0 Yes 12.5mg Take 0.5 [facility] e 25 mg 1-14 tablets by ity of tablet 00:00: mouth [place] 00 every 6 Medical (six) Branch hours as needed for Nausea and Vomiting (N/V). proMETHazin 2021-0 Yes 12.5mg Take 0.5 [facility] e 25 mg 1-14 tablets by ity of tablet 00:00: mouth [place] 00 every 6 Medical (six) Branch hours as needed for Nausea and Vomiting (N/V). proMETHazin 2021-0 Yes 12.5mg Take 0.5 [facility] e 25 mg 1-14 tablets by ity of tablet 00:00: mouth [place] 00 every 6 Medical (six) Branch hours as needed for Nausea and Vomiting (N/V). proMETHazin 2021-0 Yes 12.5mg Take 0.5 [facility] e 25 mg 1-14 tablets by ity of tablet 00:00: mouth [place] 00 every 6 Medical (six) Branch hours as needed for Nausea and Vomiting (N/V). proMETHazin 2021-0 Yes 12.5mg Take 0.5 [facility] e 25 mg 1-14 tablets by ity of tablet 00:00: mouth [place] 00 every 6 Medical (six) Branch hours as needed for Nausea and Vomiting (N/V). proMETHazin 2021-0 Yes 12.5mg Take 0.5 [facility] e 25 mg 1-14 tablets by ity of tablet 00:00: mouth [place] 00 every 6 Medical (six) Branch hours as needed for Nausea and Vomiting (N/V). proMETHazin 2021-0 Yes 12.5mg Take 0.5 [facility] e 25 mg 1-14 tablets by ity of tablet 00:00: mouth [place] 00 every 6 Medical (six) Branch hours as needed for Nausea and Vomiting (N/V). proMETHazin 2021-0 Yes 12.5mg Take 0.5 [facility] e 25 mg 1-14 tablets by ity of tablet 00:00: mouth [place] 00 every 6 Medical (six) Branch hours as needed for Nausea and Vomiting (N/V). proMETHazin 2021-0 Yes 12.5mg Take 0.5 [facility] e 25 mg 1-14 tablets by ity of tablet 00:00: mouth [place] 00 every 6 Medical (six) Branch hours as needed for Nausea and Vomiting (N/V). proMETHazin 2021-0 Yes 12.5mg Take 0.5 [facility] e 25 mg 1-14 tablets by ity of tablet 00:00: mouth [place] 00 every 6 Medical (six) Branch hours as needed for Nausea and Vomiting (N/V). proMETHazin 2021-0 Yes 12.5mg Take 0.5 [facility] e 25 mg 1-14 tablets by ity of tablet 00:00: mouth [place] 00 every 6 Medical (six) Branch hours as needed for Nausea and Vomiting (N/V). proMETHazin 2021-0 Yes 12.5mg Take 0.5 [facility] e 25 mg 1-14 tablets by ity of tablet 00:00: mouth [place] 00 every 6 Medical (six) Branch hours as needed for Nausea and Vomiting (N/V). proMETHazin 2021-0 Yes 12.5mg Take 0.5 [facility] e 25 mg 1-14 tablets by ity of tablet 00:00: mouth [place] 00 every 6 Medical (six) Branch hours as needed for Nausea and Vomiting (N/V). proMETHazin 2021-0 Yes 12.5mg Take 0.5 [facility] e 25 mg 1-14 tablets by ity of tablet 00:00: mouth [place] 00 every 6 Medical (six) Branch hours as needed for Nausea and Vomiting (N/V). proMETHazin 2021-0 Yes 12.5mg Take 0.5 [facility] e 25 mg 1-14 tablets by ity of tablet 00:00: mouth [place] 00 every 6 Medical (six) Branch hours as needed for Nausea and Vomiting (N/V). proMETHazin 2021-0 Yes 12.5mg Take 0.5 [facility] e 25 mg 1-14 tablets by ity of tablet 00:00: mouth [place] 00 every 6 Medical (six) Branch hours as needed for Nausea and Vomiting (N/V). proMETHazin 2021-0 Yes 12.5mg Take 0.5 [facility] e 25 mg 1-14 tablets by ity of tablet 00:00: mouth [place] 00 every 6 Medical (six) Branch hours as needed for Nausea and Vomiting (N/V). proMETHazin 2021-0 Yes 12.5mg Take 0.5 [facility] e 25 mg 1-14 tablets by ity of tablet 00:00: mouth [place] 00 every 6 Medical (six) Branch hours as needed for Nausea and Vomiting (N/V). proMETHazin 2021-0 Yes 12.5mg Take 0.5 [facility] e 25 mg 1-14 tablets by ity of tablet 00:00: mouth [place] 00 every 6 Medical (six) Branch hours as needed for Nausea and Vomiting (N/V). proMETHazin 2021-0 Yes 12.5mg Take 0.5 [facility] e 25 mg 1-14 tablets by ity of tablet 00:00: mouth [place] 00 every 6 Medical (six) Branch hours as needed for Nausea and Vomiting (N/V). proMETHazin 2021-0 Yes 12.5mg Take 0.5 [facility] e 25 mg 1-14 tablets by ity of tablet 00:00: mouth [place] 00 every 6 Medical (six) Branch hours as needed for Nausea and Vomiting (N/V). proMETHazin 2021-0 Yes 12.5mg Take 0.5 [facility] e 25 mg 1-14 tablets by ity of tablet 00:00: mouth [place] 00 every 6 Medical (six) Branch hours as needed for Nausea and Vomiting (N/V). proMETHazin 2021-0 Yes 12.5mg Take 0.5 [facility] e 25 mg 1-14 tablets by ity of tablet 00:00: mouth [place] 00 every 6 Medical (six) Branch hours as needed for Nausea and Vomiting (N/V). proMETHazin 2021-0 Yes 12.5mg Take 0.5 [facility] e 25 mg 1-14 tablets by ity of tablet 00:00: mouth [place] 00 every 6 Medical (six) Branch hours as needed for Nausea and Vomiting (N/V). proMETHazin 2021-0 Yes 12.5mg Take 0.5 [facility] e 25 mg 1-14 tablets by ity of tablet 00:00: mouth [place] 00 every 6 Medical (six) Branch hours as needed for Nausea and Vomiting (N/V). proMETHazin 2021-0 Yes 12.5mg Take 0.5 [facility] e 25 mg 1-14 tablets by ity of tablet 00:00: mouth [place] 00 every 6 Medical (six) Branch hours as needed for Nausea and Vomiting (N/V). proMETHazin 2021-0 Yes 12.5mg Take 0.5 [facility] e 25 mg 1-14 tablets by ity of tablet 00:00: mouth [place] 00 every 6 Medical (six) Branch hours as needed for Nausea and Vomiting (N/V). proMETHazin 2021-0 Yes 12.5mg Take 0.5 [facility] e 25 mg 1-14 tablets by ity of tablet 00:00: mouth [place] 00 every 6 Medical (six) Branch hours as needed for Nausea and Vomiting (N/V). proMETHazin 2021-0 Yes 12.5mg Take 0.5 [facility] e 25 mg 1-14 tablets by ity of tablet 00:00: mouth [place] 00 every 6 Medical (six) Branch hours as needed for Nausea and Vomiting (N/V). proMETHazin 2021-0 Yes 12.5mg Take 0.5 [facility] e 25 mg 1-14 tablets by ity of tablet 00:00: mouth [place] 00 every 6 Medical (six) Branch hours as needed for Nausea and Vomiting (N/V). proMETHazin 2021-0 Yes 12.5mg Take 0.5 [facility] e 25 mg 1-14 tablets by ity of tablet 00:00: mouth [place] 00 every 6 Medical (six) Branch hours as needed for Nausea and Vomiting (N/V). proMETHazin 2021-0 Yes 12.5mg Take 0.5 [facility] e 25 mg 1-14 tablets by ity of tablet 00:00: mouth [place] 00 every 6 Medical (six) Branch hours as needed for Nausea and Vomiting (N/V). proMETHazin 2021-0 Yes 12.5mg Take 0.5 [facility] e 25 mg 1-14 tablets by ity of tablet 00:00: mouth [place] 00 every 6 Medical (six) Branch hours as needed for Nausea and Vomiting (N/V). proMETHazin 2021-0 Yes 12.5mg Take 0.5 [facility] e 25 mg 1-14 tablets by ity of tablet 00:00: mouth [place] 00 every 6 Medical (six) Branch hours as needed for Nausea and Vomiting (N/V). proMETHazin 2021-0 Yes 12.5mg Take 0.5 [facility] e 25 mg 1-14 tablets by ity of tablet 00:00: mouth [place] 00 every 6 Medical (six) Branch hours as needed for Nausea and Vomiting (N/V). proMETHazin 2021-0 Yes 12.5mg Take 0.5 [facility] e 25 mg 1-14 tablets by ity of tablet 00:00: mouth [place] 00 every 6 Medical (six) Branch hours as needed for Nausea and Vomiting (N/V). proMETHazin 2021-0 Yes 12.5mg Take 0.5 [facility] e 25 mg 1-14 tablets by ity of tablet 00:00: mouth [place] 00 every 6 Medical (six) Branch hours as needed for Nausea and Vomiting (N/V). proMETHazin 1-0 Yes 12.5mg Take 0.5 [facility] e 25 mg 1-14 tablets by ity of tablet 00:00: mouth [place] 00 every 6 Medical (six) Branch hours as needed for Nausea and Vomiting (N/V). proMETHazin 2020-0 Yes 12.5mg Take 0.5 [facility] e 25 mg 1-14 tablets by ity of tablet 00:00: mouth [place] 00 every 6 Medical (six) Branch hours as needed for Nausea and Vomiting (N/V). proMETHazin 2020-0 Yes 12.5mg Take 0.5 [facility] e 25 mg 1-14 tablets by ity of tablet 00:00: mouth [place] 00 every 6 Medical (six) Branch hours as needed for Nausea and Vomiting (N/V). proMETHazin 1-0 Yes 12.5mg Take 0.5 [facility] e 25 mg 1-14 tablets by ity of tablet 00:00: mouth [place] 00 every 6 Medical (six) Branch hours as needed for Nausea and Vomiting (N/V). proMETHazin 1-0 Yes 12.5mg Take 0.5 [facility] e 25 mg 1-14 tablets by ity of tablet 00:00: mouth [place] 00 every 6 Medical (six) Branch hours as needed for Nausea and Vomiting (N/V). proMETHazin 2021-0 Yes 12.5mg Take 0.5 [facility] 25 mg 1-14 tablets by [facility] of tablet 00:00: mouth [place] 00 every 6 Medical (six) Branch hours as needed for Nausea and Vomiting (N/V). proMETHazin 2021-0 Yes 12.5mg Take 0.5 [facility] 25 mg 1-14 tablets by [facility] of tablet 00:00: mouth [place] 00 every 6 Medical (six) Branch hours as needed for Nausea and Vomiting (N/V). proMETHazin 2021-0 Yes 12.5mg Take 0.5 [facility] 25 mg 1-14 tablets by [facility] of tablet 00:00: mouth [place] 00 every 6 Medical (six) Branch hours as needed for Nausea and Vomiting (N/V). proMETHazin 2021-0 Yes 12.5mg Take 0.5 [facility] 25 mg 1-14 tablets by [facility]y of tablet 00:00: mouth [place] 00 every 6 Medical (six) Branch hours as needed for Nausea and Vomiting (N/V). proMETHazin 2021-0 Yes 12.5mg Take 0.5 [facility] 25 mg 1-14 tablets by [facility] of tablet 00:00: mouth [place] 00 every 6 Medical (six) Branch hours as needed for Nausea and Vomiting (N/V). proMETHazin 1-0 Yes 12.5mg Take 0.5 [facility] 25 mg 1-14 tablets by [facility] of tablet 00:00: mouth [place] 00 every 6 Medical (six) Branch hours as needed for Nausea and Vomiting (N/V). proMETHazin 1-0 Yes 12.5mg Take 0.5 [facility] 25 mg 1-14 tablets by [facility] of tablet 00:00: mouth [place] 00 every 6 Medical (six) Branch hours as needed for Nausea and Vomiting (N/V). proMETHazin 2021-0 Yes 12.5mg Take 0.5 [facility] 25 mg 1-14 tablets by [facility] of tablet 00:00: mouth [place] 00 every 6 Medical (six) Branch hours as needed for Nausea and Vomiting (N/V). proMETHazin 2021-0 Yes 12.5mg Take 0.5 [facility] 25 mg 1-14 tablets by [facility] of tablet 00:00: mouth [place] 00 every 6 Medical (six) Branch hours as needed for Nausea and Vomiting (N/V). proMETHazin 2021-0 Yes 12.5mg Take 0.5 [facility] 25 mg 1-14 tablets by [facility] of tablet 00:00: mouth [place] 00 every 6 Medical (six) Branch hours as needed for Nausea and Vomiting (N/V). proMETHazin 2021-0 Yes 12.5mg Take 0.5 [facility] 25 mg 1-14 tablets by [facility] of tablet 00:00: mouth [place] 00 every 6 Medical (six) Branch hours as needed for Nausea and Vomiting (N/V). proMETHazin 2021-0 Yes 12.5mg Take 0.5 [facility] 25 mg 1-14 tablets by [facility] of tablet 00:00: mouth [place] 00 every 6 Medical (six) Branch hours as needed for Nausea and Vomiting (N/V). proMETHazin 2021-0 Yes 12.5mg Take 0.5 [facility] 25 mg 1-14 tablets by [facility] of tablet 00:00: mouth [place] 00 every 6 Medical (six) Branch hours as needed for Nausea and Vomiting (N/V). proMETHazin 1-0 Yes 12.5mg Take 0.5 [facility] 25 mg 1-14 tablets by [facility] of tablet 00:00: mouth [place] 00 every 6 Medical (six) Branch hours as needed for Nausea and Vomiting (N/V). proMETHazin 1-0 Yes 12.5mg Take 0.5 [facility] 25 mg 1-14 tablets by [facility] of tablet 00:00: mouth [place] 00 every 6 Medical (six) Branch hours as needed for Nausea and Vomiting (N/V). proMETHazin 1-0 Yes 12.5mg Take 0.5 [facility] 25 mg 1-14 tablets by [facility] of tablet 00:00: mouth [place] 00 every 6 Medical (six) Branch hours as needed for Nausea and Vomiting (N/V). proMETHazin 1-0 Yes 12.5mg Take 0.5 [facility] 25 mg 1-14 tablets by [facility] of tablet 00:00: mouth [place] 00 every 6 Medical (six) Branch hours as needed for Nausea and Vomiting (N/V). proMETHazin 2021-0 Yes 12.5mg Take 0.5 [facility] 25 mg 1-14 tablets by [facility] of tablet 00:00: mouth [place] 00 every 6 Medical (six) Branch hours as needed for Nausea and Vomiting (N/V). proMETHazin 2021-0 Yes 12.5mg Take 0.5 [facility] 25 mg 1-14 tablets by [facility] of tablet 00:00: mouth [place] 00 every 6 Medical (six) Branch hours as needed for Nausea and Vomiting (N/V). proMETHazin 2021-0 Yes 12.5mg Take 0.5 [facility] 25 mg 1-14 tablets by [facility] of tablet 00:00: mouth [place] 00 every 6 Medical (six) Branch hours as needed for Nausea and Vomiting (N/V). proMETHazin 2021-0 Yes 12.5mg Take 0.5 [facility] 25 mg 1-14 tablets by [facility] of tablet 00:00: mouth [place] 00 every 6 Medical (six) Branch hours as needed for Nausea and Vomiting (N/V). proMETHazin 2021-0 Yes 12.5mg Take 0.5 [facility] 25 mg 1-14 tablets by [facility] of tablet 00:00: mouth [place] 00 every 6 Medical (six) Branch hours as needed for Nausea and Vomiting (N/V). proMETHazin 2021-0 Yes 12.5mg Take 0.5 [facility] 25 mg 1-14 tablets by [facility] of tablet 00:00: mouth [place] 00 every 6 Medical (six) Branch hours as needed for Nausea and Vomiting (N/V). proMETHazin 1-0 Yes 12.5mg Take 0.5 [facility] 25 mg 1-14 tablets by [facility] of tablet 00:00: mouth [place] 00 every 6 Medical (six) Branch hours as needed for Nausea and Vomiting (N/V). proMETHazin 1-0 Yes 12.5mg Take 0.5 [facility] 25 mg 1-14 tablets by [facility] of tablet 00:00: mouth [place] 00 every 6 Medical (six) Branch hours as needed for Nausea and Vomiting (N/V). proMETHazin 2021-0 Yes 12.5mg Take 0.5 [facility] 25 mg 1-14 tablets by [facility] of tablet 00:00: mouth [place] 00 every 6 Medical (six) Branch hours as needed for Nausea and Vomiting (N/V). proMETHazin 2021-0 Yes 12.5mg Take 0.5 [facility] 25 mg 1-14 tablets by [facility] of tablet 00:00: mouth [place] 00 every 6 Medical (six) Branch hours as needed for Nausea and Vomiting (N/V). proMETHazin 2021-0 Yes 12.5mg Take 0.5 [facility] 25 mg 1-14 tablets by [facility] of tablet 00:00: mouth [place] 00 every 6 Medical (six) Branch hours as needed for Nausea and Vomiting (N/V). proMETHazin 2021-0 Yes 12.5mg Take 0.5 [facility] 25 mg 1-14 tablets by [facility] of tablet 00:00: mouth [place] 00 every 6 Medical (six) Branch hours as needed for Nausea and Vomiting (N/V). proMETHazin 2021-0 Yes 12.5mg Take 0.5 [facility] 25 mg 1-14 tablets by ity of tablet 00:00: mouth [place] 00 every 6 Medical (six) Branch hours as needed for Nausea and Vomiting (N/V). proMETHazin 2021-0 Yes 12.5mg Take 0.5 [facility] 25 mg 1-14 tablets by [facility] of tablet 00:00: mouth [place] 00 every 6 Medical (six) Branch hours as needed for Nausea and Vomiting (N/V). proMETHazin 2021-0 Yes 12.5mg Take 0.5 [facility] 25 mg 1-14 tablets by [facility] of tablet 00:00: mouth [place] 00 every 6 Medical (six) Branch hours as needed for Nausea and Vomiting (N/V). proMETHazin 2021-0 Yes 12.5mg Take 0.5 [facility] 25 mg 1-14 tablets by it[facility] of tablet 00:00: mouth [place] 00 every 6 Medical (six) Branch hours as needed for Nausea and Vomiting (N/V). proMETHazin 2021-0 Yes 12.5mg Take 0.5 [facility] 25 mg 1-14 tablets by [facility] of tablet 00:00: mouth [place] 00 every 6 Medical (six) Branch hours as needed for Nausea and Vomiting (N/V). proMETHazin 2021-0 Yes 12.5mg Take 0.5 [facility] 25 mg 1-14 tablets by ity of tablet 00:00: mouth [place] 00 every 6 Medical (six) Branch hours as needed for Nausea and Vomiting (N/V). proMETHazin 2021-0 Yes 12.5mg Take 0.5 [facility] 25 mg 1-14 tablets by ity of tablet 00:00: mouth [place] 00 every 6 Medical (six) Branch hours as needed for Nausea and Vomiting (N/V). proMETHazin 2021-0 Yes 12.5mg Take 0.5 [facility] 25 mg 1-14 tablets by ity of tablet 00:00: mouth [place] 00 every 6 Medical (six) Branch hours as needed for Nausea and Vomiting (N/V). proMETHazin 2021-0 Yes 12.5mg Take 0.5 [facility] 25 mg 1-14 tablets by [facility] of tablet 00:00: mouth [place] 00 every 6 Medical (six) Branch hours as needed for Nausea and Vomiting (N/V). proMETHazin 2021-0 Yes 12.5mg Take 0.5 [facility] 25 mg 1-14 tablets by ity of tablet 00:00: mouth [place] 00 every 6 Medical (six) Branch hours as needed for Nausea and Vomiting (N/V). proMETHazin 2021-0 Yes 12.5mg Take 0.5 [facility] 25 mg 1-14 tablets by [facility] of tablet 00:00: mouth [place] 00 every 6 Medical (six) Branch hours as needed for Nausea and Vomiting (N/V). proMETHazin 2021-0 Yes 12.5mg Take 0.5 [facility] 25 mg 1-14 tablets by [facility] of tablet 00:00: mouth [place] 00 every 6 Medical (six) Branch hours as needed for Nausea and Vomiting (N/V). proMETHazin 2021-0 Yes 12.5mg Take 0.5 [facility] 25 mg 1-14 tablets by it[facility] of tablet 00:00: mouth [place] 00 every 6 Medical (six) Branch hours as needed for Nausea and Vomiting (N/V). proMETHazin 2021-0 Yes 12.5mg Take 0.5 [facility] 25 mg 1-14 tablets by ity of tablet 00:00: mouth [place] 00 every 6 Medical (six) Branch hours as needed for Nausea and Vomiting (N/V). proMETHazin 2021-0 Yes 12.5mg Take 0.5 [facility] 25 mg 1-14 tablets by ity of tablet 00:00: mouth [place] 00 every 6 Medical (six) Branch hours as needed for Nausea and Vomiting (N/V). proMETHazin 2021-0 Yes 12.5mg Take 0.5 [facility] 25 mg 1-14 tablets by [facility] of tablet 00:00: mouth [place] 00 every 6 Medical (six) Branch hours as needed for Nausea and Vomiting (N/V). proMETHazin 2021-0 Yes 12.5mg Take 0.5 [facility] 25 mg 1-14 tablets by [facility] of tablet 00:00: mouth [place] 00 every 6 Medical (six) Branch hours as needed for Nausea and Vomiting (N/V). proMETHazin 2021-0 Yes 12.5mg Take 0.5 [facility] 25 mg 1-14 tablets by [facility] of tablet 00:00: mouth [place] 00 every 6 Medical (six) Branch hours as needed for Nausea and Vomiting (N/V). proMETHazin 2020-0 Yes 12.5mg Take 0.5 [facility] 25 mg 1-14 tablets by ity of tablet 00:00: mouth [place] 00 every 6 Medical (six) Branch hours as needed for Nausea and Vomiting (N/V). proMETHazin 2020-0 Yes 12.5mg Take 0.5 [facility] 25 mg 1-14 tablets by [facility] of tablet 00:00: mouth [place] 00 every 6 Medical (six) Branch hours as needed for Nausea and Vomiting (N/V). proMETHazin 2020-0 Yes 12.5mg Take 0.5 [facility] 25 mg 1-14 tablets by ity of tablet 00:00: mouth [place] 00 every 6 Medical (six) Branch hours as needed for Nausea and Vomiting (N/V). proMETHazin 2020-0 Yes 12.5mg Take 0.5 [facility] 25 mg 1-14 tablets by ity of tablet 00:00: mouth [place] 00 every 6 Medical (six) Branch hours as needed for Nausea and Vomiting (N/V). proMETHazin 2020-0 Yes 12.5mg Take 0.5 [facility] 25 mg 1-14 tablets by ity of tablet 00:00: mouth [place] 00 every 6 Medical (six) Branch hours as needed for Nausea and Vomiting (N/V). proMETHazin 2020-0 Yes 12.5mg Take 0.5 [facility] 25 mg 1-14 tablets by ity of tablet 00:00: mouth [place] 00 every 6 Medical (six) Branch hours as needed for Nausea and Vomiting (N/V). linaGLIPtin 2020-2021- No [id number] 5mg Take 1 [facility] ([facility]) 12-05 tablet by it y of 5 mg tablet 00:00: [place] :00 daily. [facility] linaGLIPtin 2020-0 2- No [id number] 5mg Take 1 [facility] ([facility]) 12-05 tablet by it y of 5 mg tablet 00:00: [place] :[place] daily. [facility] RESTASIS 2019-11- No [id number] INSTILL 1 [facility] 0.05 % 2-30 02-21 DROP INTO ity of ophthalmic 00:00: 00:00 BOTH EYES [place] drops 00 :00 EVERY 12 Medical HOURS Branch RESTASIS 2019-11- No [id number] INSTILL 1 [facility] 0.05 % 2-30 02-21 DROP INTO ity of ophthalmic 00:00: 00:00 BOTH EYES [place] drops 00 :00 EVERY 12 Medical HOURS Branch fluticasone 2019-11 Yes [id number] 1{puff} Inhale 1 [facility] furoate-michelle 2-17 Puff ity of anteroL 00:00: daily. [place] ([address]) Branch 100-25 mcg/dose DsDv fluticasone 2019-11 Yes [id number] 1{puff} Inhale 1 [facility] furoate-michelle 2-17 Puff ity of anteroL 00:00: daily. [place] ([address]) Branch 100-25 mcg/dose DsDv fluticasone 2019-11 Yes [id number] 1{puff} Inhale 1 [facility] furoate-michelle 2-17 Puff ity of anteroL 00:00: daily. [address]) Branch 100-25 mcg/dose DsDv fluticasone 2019-11 Yes [id number] 1{puff} Inhale 1 [facility] furoate-michelle 2-17 Puff ity of anteroL 00:00: daily. [address]) Branch 100-25 mcg/dose DsDv fluticasone 2019-11 Yes [id number] 1{puff} Inhale 1 [facility] furoate-michelle 2-17 Puff ity of anteroL 00:00: daily. [place] ([address]) Branch 100-25 mcg/dose DsDv fluticasone 2020- Yes [id number] 1{puff} Inhale 1 [facility] furoate-michelle 2-17 Puff ity of anteroL 00:00: daily. [place] ([address]) Branch 100-25 mcg/dose DsDv fluticasone 2020 Yes [id number] 1{puff} Inhale 1 [facility] furoate-michelle 2-17 Puff ity of anteroL 00:00: daily. [address]) Branch 100-25 mcg/dose DsDv fluticasone 2020-1 Yes [id number] 1{puff} Inhale 1 [facility] furoate-michelle 2-17 Puff ity of anteroL 00:00: daily. [address]) Branch 100-25 mcg/dose DsDv fluticasone 2020-1 Yes [id number] 1{puff} Inhale 1 [facility] furoate-michelle 2-17 Puff ity of anteroL 00:00: daily. [address]) Branch 100-25 mcg/dose DsDv fluticasone 2020-1 Yes [id number] 1{puff} Inhale 1 [facility] furoate-michelle 2-17 Puff ity of anteroL 00:00: daily. [address]) Branch 100-25 mcg/dose DsDv fluticasone 2020-1 Yes [id number] 1{puff} Inhale 1 [facility] furoate-michelle 2-17 Puff ity of anteroL 00:00: daily. [address]) Branch 100-25 mcg/dose DsDv fluticasone 2020-1 Yes [id number] 1{puff} Inhale 1 [facility] furoate-michelle 2-17 Puff ity of anteroL 00:00: daily. [address]) Branch 100-25 mcg/dose DsDv fluticasone 2020-1 Yes [id number] 1{puff} Inhale 1 [facility] furoate-michelle 2-17 Puff ity of anteroL 00:00: daily. [address]) Branch 100-25 mcg/dose DsDv fluticasone 2020-1 Yes [id number] 1{puff} Inhale 1 [facility] furoate-michelle 2-17 Puff ity of anteroL 00:00: daily. [address]) Branch 100-25 mcg/dose DsDv fluticasone 2020-1 Yes [id number] 1{puff} Inhale 1 [facility] furoate-michelle 2-17 Puff ity of anteroL 00:00: daily. [address]) Branch 100-25 mcg/dose DsDv fluticasone 2020- Yes [id number] 1{puff} Inhale 1 [facility] furoate-michelle 2-17 Puff ity of anteroL 00:00: daily. [address]) Branch 100-25 mcg/dose DsDv fluticasone 2020- Yes [id number] 1{puff} Inhale 1 [facility] furoate-michelle 2-17 Puff ity of anteroL 00:00: daily. [address]) Branch 100-25 mcg/dose DsDv fluticasone 2020- Yes [id number] 1{puff} Inhale 1 [facility] furoate-michelle 2-17 Puff ity of anteroL 00:00: daily. [address]) Branch 100-25 mcg/dose DsDv fluticasone 2020- Yes [id number] 1{puff} Inhale 1 [facility] furoate-michelle 2-17 Puff ity of anteroL 00:00: daily. [address]) Branch 100-25 mcg/dose DsDv fluticasone 2020- Yes [id number] 1{puff} Inhale 1 [facility] furoate-michelle 2-17 Puff ity of anteroL 00:00: daily. [address]) Branch 100-25 mcg/dose DsDv fluticasone 2020- Yes [id number] 1{puff} Inhale 1 [facility] furoate-michelle 2-17 Puff ity of anteroL 00:00: daily. [address]) Branch 100-25 mcg/dose DsDv fluticasone 2020- Yes [id number] 1{puff} Inhale 1 [facility] furoate-michelle 2-17 Puff ity of anteroL 00:00: daily. [place] ([address]) Branch 100-25 mcg/dose DsDv fluticasone 2020- Yes [id number] 1{puff} Inhale 1 [facility] furoate-michelle 2-17 Puff ity of anteroL 00:00: daily. [place] ([address]) Branch 100-25 mcg/dose DsDv fluticasone 2020- Yes [id number] 1{puff} Inhale 1 [facility] furoate-michelle 2-17 Puff ity of anteroL 00:00: daily. [address]) Branch 100-25 mcg/dose DsDv fluticasone 2020-1 Yes [id number] 1{puff} Inhale 1 [facility] furoate-michelle 2-17 Puff ity of anteroL 00:00: daily. [place] ([address]) Branch 100-25 mcg/dose DsDv fluticasone 2020-1 Yes [id number] 1{puff} Inhale 1 [facility] furoate-michelle 2-17 Puff ity of anteroL 00:00: daily. [address]) Branch 100-25 mcg/dose DsDv fluticasone 2020-1 Yes [id number] 1{puff} Inhale 1 [facility] furoate-michelle 2-17 Puff ity of anteroL 00:00: daily. [place] ([address]) Branch 100-25 mcg/dose DsDv fluticasone 2020-1 Yes [id number] 1{puff} Inhale 1 [facility] furoate-michelle 2-17 Puff ity of anteroL 00:00: daily. [address]) Branch 100-25 mcg/dose DsDv fluticasone 2020-1 Yes [id number] 1{puff} Inhale 1 [facility] furoate-michelle 2-17 Puff ity of anteroL 00:00: daily. [place] ([address]) Branch 100-25 mcg/dose DsDv fluticasone 2020-1 Yes [id number] 1{puff} Inhale 1 [facility] furoate-michelle 2-17 Puff ity of anteroL 00:00: daily. [place] ([address]) Branch 100-25 mcg/dose DsDv fluticasone 2020-1 Yes [id number] 1{puff} Inhale 1 [facility] furoate-michelle 2-17 Puff ity of anteroL 00:00: daily. [place] ([address]) Branch 100-25 mcg/dose DsDv fluticasone 2020-1 Yes [id number] 1{puff} Inhale 1 [facility] furoate-michelle 2-17 Puff ity of anteroL 00:00: daily. [place] ([address]) Branch 100-25 mcg/dose DsDv fluticasone 2020- Yes [id number] 1{puff} Inhale 1 [facility] furoate-michelle 2-17 Puff ity of anteroL 00:00: daily. [address]) Branch 100-25 mcg/dose DsDv fluticasone 2020- Yes [id number] 1{puff} Inhale 1 [facility] furoate-michelle 2-17 Puff ity of anteroL 00:00: daily. [address]) Branch 100-25 mcg/dose DsDv fluticasone 2020- Yes [id number] 1{puff} Inhale 1 [facility] furoate-michelle 2-17 Puff ity of anteroL 00:00: daily. [address]) Branch 100-25 mcg/dose DsDv fluticasone 2020- Yes [id number] 1{puff} Inhale 1 [facility] furoate-michelle 2-17 Puff ity of anteroL 00:00: daily. [address]) Branch 100-25 mcg/dose DsDv fluticasone 2020- Yes [id number] 1{puff} Inhale 1 [facility] furoate-michelle 2-17 Puff ity of anteroL 00:00: daily. [address]) Branch 100-25 mcg/dose DsDv fluticasone 2020- Yes [id number] 1{puff} Inhale 1 [facility] furoate-michelle 2-17 Puff ity of anteroL 00:00: daily. [address]) Branch 100-25 mcg/dose DsDv fluticasone 2020- Yes [id number] 1{puff} Inhale 1 [facility] furoate-michelle 2-17 Puff ity of anteroL 00:00: daily. [place] ([address]) Branch 100-25 mcg/dose DsDv fluticasone 2020- Yes [id number] 1{puff} Inhale 1 [facility] furoate-michelle 2-17 Puff ity of anteroL 00:00: daily. [place] ([address]) Branch 100-25 mcg/dose DsDv fluticasone 2020- Yes [id number] 1{puff} Inhale 1 [facility] furoate-michelle 2-17 Puff ity of anteroL 00:00: daily. [address]) Branch 100-25 mcg/dose DsDv fluticasone 2020-1 Yes [id number] 1{puff} Inhale 1 [facility] furoate-michelle 2-17 Puff ity of anteroL 00:00: daily. [place] ([address]) Branch 100-25 mcg/dose DsDv fluticasone 2020-1 Yes [id number] 1{puff} Inhale 1 [facility] furoate-michelle 2-17 Puff ity of anteroL 00:00: daily. [place] ([address]) Branch 100-25 mcg/dose DsDv fluticasone 2020-1 Yes [id number] 1{puff} Inhale 1 [facility] furoate-michelle 2-17 Puff ity of anteroL 00:00: daily. [place] ([address]) Branch 100-25 mcg/dose DsDv fluticasone 2020-1 Yes [id number] 1{puff} Inhale 1 [facility] furoate-michelle 2-17 Puff ity of anteroL 00:00: daily. [place] ([address]) Branch 100-25 mcg/dose DsDv fluticasone 2020-1 Yes [id number] 1{puff} Inhale 1 [facility] furoate-michelle 2-17 Puff ity of anteroL 00:00: daily. [place] ([address]) Branch 100-25 mcg/dose DsDv fluticasone 2020-1 Yes [id number] 1{puff} Inhale 1 [facility] furoate-michelle 2-17 Puff ity of anteroL 00:00: daily. [place] ([address]) Branch 100-25 mcg/dose DsDv fluticasone 2020-1 Yes [id number] 1{puff} Inhale 1 [facility] furoate-michelle 2-17 Puff ity of anteroL 00:00: daily. [place] ([address]) Branch 100-25 mcg/dose DsDv fluticasone 2020-1 Yes [id number] 1{puff} Inhale 1 [facility] furoate-michelle 2-17 Puff ity of anteroL 00:00: daily. [place] ([address]) Branch 100-25 mcg/dose DsDv fluticasone 2020- Yes [id number] 1{puff} Inhale 1 [facility] furoate-michelle 2-17 Puff ity of anteroL 00:00: daily. [address]) Branch 100-25 mcg/dose DsDv fluticasone 2020- Yes [id number] 1{puff} Inhale 1 [facility] furoate-michelle 2-17 Puff ity of anteroL 00:00: daily. [address]) Branch 100-25 mcg/dose DsDv fluticasone 2020- Yes [id number] 1{puff} Inhale 1 [facility] furoate-michelle 2-17 Puff ity of anteroL 00:00: daily. [address]) Branch 100-25 mcg/dose DsDv fluticasone 2020- Yes [id number] 1{puff} Inhale 1 [facility] furoate-michelle 2-17 Puff ity of anteroL 00:00: daily. [address]) Branch 100-25 mcg/dose DsDv fluticasone 2020- Yes [id number] 1{puff} Inhale 1 [facility] furoate-michelle 2-17 Puff ity of anteroL 00:00: daily. [address]) Branch 100-25 mcg/dose DsDv fluticasone 2020- Yes [id number] 1{puff} Inhale 1 [facility] furoate-michelle 2-17 Puff ity of anteroL 00:00: daily. [address]) Branch 100-25 mcg/dose DsDv fluticasone 2020- Yes [id number] 1{puff} Inhale 1 [facility] furoate-michelle 2-17 Puff ity of anteroL 00:00: daily. [place] ([address]) Branch 100-25 mcg/dose DsDv fluticasone 2020- Yes [id number] 1{puff} Inhale 1 [facility] furoate-michelle 2-17 Puff ity of anteroL 00:00: daily. [place] ([address]) Branch 100-25 mcg/dose DsDv fluticasone 2020- Yes [id number] 1{puff} Inhale 1 [facility] furoate-michelle 2-17 Puff ity of anteroL 00:00: daily. [address]) Branch 100-25 mcg/dose DsDv fluticasone 2020-1 Yes [id number] 1{puff} Inhale 1 [facility] furoate-michelle 2-17 Puff ity of anteroL 00:00: daily. [place] ([address]) Branch 100-25 mcg/dose DsDv fluticasone 2020-1 Yes [id number] 1{puff} Inhale 1 [facility] furoate-michelle 2-17 Puff ity of anteroL 00:00: daily. [place] ([address]) Branch 100-25 mcg/dose DsDv fluticasone 2020-1 Yes [id number] 1{puff} Inhale 1 [facility] furoate-michelle 2-17 Puff ity of anteroL 00:00: daily. [place] ([address]) Branch 100-25 mcg/dose DsDv fluticasone 2020-1 Yes [id number] 1{puff} Inhale 1 [facility] furoate-michelle 2-17 Puff ity of anteroL 00:00: daily. [place] ([address]) Branch 100-25 mcg/dose DsDv fluticasone 2020-1 Yes [id number] 1{puff} Inhale 1 [facility] furoate-michelle 2-17 Puff ity of anteroL 00:00: daily. [place] ([address]) Branch 100-25 mcg/dose DsDv fluticasone 2020-1 Yes [id number] 1{puff} Inhale 1 [facility] furoate-michelle 2-17 Puff ity of anteroL 00:00: daily. [place] ([address]) Branch 100-25 mcg/dose DsDv fluticasone 2020-1 Yes [id number] 1{puff} Inhale 1 [facility] furoate-michelle 2-17 Puff ity of anteroL 00:00: daily. [place] ([address]) Branch 100-25 mcg/dose DsDv fluticasone 2020-1 Yes [id number] 1{puff} Inhale 1 [facility] furoate-michelle 2-17 Puff ity of anteroL 00:00: daily. [place] ([address]) Branch 100-25 mcg/dose DsDv fluticasone 2020-1 Yes [id number] 1{puff} Inhale 1 [facility] furoate-michelle 2-17 Puff ity of anteroL 00:00: daily. [address]) Branch 100-25 mcg/dose DsDv fluticasone 2020- Yes [id number] 1{puff} Inhale 1 [facility] furoate-michelle 2-17 Puff ity of anteroL 00:00: daily. [address]) Branch 100-25 mcg/dose DsDv fluticasone 2020- Yes [id number] 1{puff} Inhale 1 [facility] furoate-michelle 2-17 Puff ity of anteroL 00:00: daily. [address]) Branch 100-25 mcg/dose DsDv fluticasone 2020- Yes [id number] 1{puff} Inhale 1 [facility] furoate-michelle 2-17 Puff ity of anteroL 00:00: daily. [address]) Branch 100-25 mcg/dose DsDv fluticasone 2020- Yes [id number] 1{puff} Inhale 1 [facility] furoate-michelle 2-17 Puff ity of anteroL 00:00: daily. [address]) Branch 100-25 mcg/dose DsDv fluticasone 2020- Yes [id number] 1{puff} Inhale 1 [facility] furoate-michelle 2-17 Puff ity of anteroL 00:00: daily. [address]) Branch 100-25 mcg/dose DsDv fluticasone 2020- Yes [id number] 1{puff} Inhale 1 [facility] furoate-michelle 2-17 Puff ity of anteroL 00:00: daily. [place] ([address]) Branch 100-25 mcg/dose DsDv fluticasone 2020- Yes [id number] 1{puff} Inhale 1 [facility] furoate-michelle 2-17 Puff ity of anteroL 00:00: daily. [address]) Branch 100-25 mcg/dose DsDv fluticasone 2020- Yes [id number] 1{puff} Inhale 1 [facility] furoate-michelle 2-17 Puff ity of anteroL 00:00: daily. [address]) Branch 100-25 mcg/dose DsDv fluticasone 2020-1 Yes [id number] 1{puff} Inhale 1 [facility] furoate-michelle 2-17 Puff ity of anteroL 00:00: daily. [place] ([address]) Branch 100-25 mcg/dose DsDv fluticasone 2020-1 Yes [id number] 1{puff} Inhale 1 [facility] furoate-michelle 2-17 Puff ity of anteroL 00:00: daily. [place] ([address]) Branch 100-25 mcg/dose DsDv fluticasone 2020-1 Yes [id number] 1{puff} Inhale 1 [facility] furoate-michelle 2-17 Puff ity of anteroL 00:00: daily. [place] ([address]) Branch 100-25 mcg/dose DsDv fluticasone 2020-1 Yes [id number] 1{puff} Inhale 1 [facility] furoate-michelle 2-17 Puff ity of anteroL 00:00: daily. [place] ([address]) Branch 100-25 mcg/dose DsDv fluticasone 2020-1 Yes [id number] 1{puff} Inhale 1 [facility] furoate-michelle 2-17 Puff ity of anteroL 00:00: daily. [place] ([address]) Branch 100-25 mcg/dose DsDv fluticasone 2020-1 Yes [id number] 1{puff} Inhale 1 [facility] furoate-michelle 2-17 Puff ity of anteroL 00:00: daily. [place] ([address]) Branch 100-25 mcg/dose DsDv fluticasone 2020-1 Yes [id number] 1{puff} Inhale 1 [facility] furoate-michelle 2-17 Puff ity of anteroL 00:00: daily. [place] ([address]) Branch 100-25 mcg/dose DsDv fluticasone 2020-1 Yes [id number] 1{puff} Inhale 1 [facility] furoate-michelle 2-17 Puff ity of anteroL 00:00: daily. [address]) Branch 100-25 mcg/dose DsDv fluticasone 2020-1 Yes [id number] 1{puff} Inhale 1 [facility] furoate-michelle 2-17 Puff ity of anteroL 00:00: daily. [address]) Branch 100-25 mcg/dose DsDv fluticasone 2020- Yes [id number] 1{puff} Inhale 1 [facility] furoate-michelle 2-17 Puff ity of anteroL 00:00: daily. [address]) Branch 100-25 mcg/dose DsDv fluticasone 2020- Yes [id number] 1{puff} Inhale 1 [facility] furoate-michelle 2-17 Puff ity of anteroL 00:00: daily. [address]) Branch 100-25 mcg/dose DsDv fluticasone 2020- Yes [id number] 1{puff} Inhale 1 [facility] furoate-michelle 2-17 Puff ity of anteroL 00:00: daily. [address]) Branch 100-25 mcg/dose DsDv fluticasone 2020- Yes [id number] 1{puff} Inhale 1 [facility] furoate-michelle 2-17 Puff ity of anteroL 00:00: daily. [address]) Branch 100-25 mcg/dose DsDv fluticasone 2020- Yes [id number] 1{puff} Inhale 1 [facility] furoate-michelle 2-17 Puff ity of anteroL 00:00: daily. [address]) Branch 100-25 mcg/dose DsDv fluticasone 2020- Yes [id number] 1{puff} Inhale 1 [facility] furoate-michelle 2-17 Puff ity of anteroL 00:00: daily. [place] ([address]) Branch 100-25 mcg/dose DsDv fluticasone 2020-1 Yes [id number] 1{puff} Inhale 1 [facility] furoate-michelle 2-17 Puff ity of anteroL 00:00: daily. [address]) Branch 100-25 mcg/dose DsDv fluticasone 2020- Yes [id number] 1{puff} Inhale 1 [facility] furoate-michelle 2-17 Puff ity of anteroL 00:00: daily. [place] ([address]) Branch 100-25 mcg/dose DsDv fluticasone 2020-1 Yes [id number] 1{puff} Inhale 1 [facility] furoate-michelle 2-17 Puff ity of anteroL 00:00: daily. [place] ([address]) Branch 100-25 mcg/dose DsDv fluticasone 2020-1 Yes [id number] 1{puff} Inhale 1 [facility] furoate-michelle 2-17 Puff ity of anteroL 00:00: daily. [place] ([address]) Branch 100-25 mcg/dose DsDv fluticasone 2020-1 Yes [id number] 1{puff} Inhale 1 [facility] furoate-michelle 2-17 Puff ity of anteroL 00:00: daily. [place] ([address]) Branch 100-25 mcg/dose DsDv fluticasone 2020-1 Yes [id number] 1{puff} Inhale 1 [facility] furoate-michelle 2-17 Puff ity of anteroL 00:00: daily. [place] ([address]) Branch 100-25 mcg/dose DsDv fluticasone 2020-1 Yes [id number] 1{puff} Inhale 1 [facility] furoate-michelle 2-17 Puff ity of anteroL 00:00: daily. [place] ([address]) Branch 100-25 mcg/dose DsDv fluticasone 2020-1 Yes [id number] 1{puff} Inhale 1 [facility] furoate-michelle 2-17 Puff ity of anteroL 00:00: daily. [place] ([address]) Branch 100-25 mcg/dose DsDv fluticasone 2020-1 Yes [id number] 1{puff} Inhale 1 [facility] furoate-michelle 2-17 Puff ity of anteroL 00:00: daily. [place] ([address]) Branch 100-25 mcg/dose DsDv fluticasone 2020-1 Yes [id number] 1{puff} Inhale 1 [facility] furoate-michelle 2-17 Puff ity of anteroL 00:00: daily. [address]) Branch 100-25 mcg/dose DsDv fluticasone 2020-1 Yes [id number] 1{puff} Inhale 1 [facility] furoate-michelle 2-17 Puff ity of anteroL 00:00: daily. [place] ([address]) Branch 100-25 mcg/dose DsDv fluticasone 2020-1 Yes [id number] 1{puff} Inhale 1 [facility] furoate-michelle 2-17 Puff ity of anteroL 00:00: daily. [place] ([address]) Branch 100-25 mcg/dose DsDv fluticasone 2020- Yes [id number] 1{puff} Inhale 1 [facility] furoate-michelle 2-17 Puff ity of anteroL 00:00: daily. [place] ([address]) Branch 100-25 mcg/dose DsDv fluticasone 2020- Yes [id number] 1{puff} Inhale 1 [facility] furoate-michelle 2-17 Puff ity of anteroL 00:00: daily. [place] ([address]) Branch 100-25 mcg/dose DsDv fluticasone 2020- Yes [id number] 1{puff} Inhale 1 [facility] furoate-michelle 2-17 Puff ity of anteroL 00:00: daily. [address]) Branch 100-25 mcg/dose DsDv fluticasone 2020- Yes [id number] 1{puff} Inhale 1 [facility] furoate-michelle 2-17 Puff ity of anteroL 00:00: daily. [address]) Branch 100-25 mcg/dose DsDv fluticasone 2020- Yes [id number] 1{puff} Inhale 1 [facility] furoate-michelle 2-17 Puff ity of anteroL 00:00: daily. [place] ([address]) Branch 100-25 mcg/dose DsDv fluticasone 2020- Yes [id number] 1{puff} Inhale 1 [facility] furoate-michelle 2-17 Puff ity of anteroL 00:00: daily. [address]) Branch 100-25 mcg/dose DsDv fluticasone 2020- Yes [id number] 1{puff} Inhale 1 [facility] furoate-michelle 2-17 Puff ity of anteroL 00:00: daily. [address]) Branch 100-25 mcg/dose DsDv fluticasone 2020-1 Yes [id number] 1{puff} Inhale 1 [facility] furoate-michelle 2-17 Puff ity of anteroL 00:00: daily. [place] ([address]) Branch 100-25 mcg/dose DsDv fluticasone 2020-1 Yes [id number] 1{puff} Inhale 1 [facility] furoate-michelle 2-17 Puff ity of anteroL 00:00: daily. [address]) Branch 100-25 mcg/dose DsDv fluticasone 2020-1 Yes [id number] 1{puff} Inhale 1 [facility] furoate-michelle 2-17 Puff ity of anteroL 00:00: daily. [place] ([address]) Branch 100-25 mcg/dose DsDv fluticasone 2020-1 Yes [id number] 1{puff} Inhale 1 [facility] furoate-michelle 2-17 Puff ity of anteroL 00:00: daily. [place] ([address]) Branch 100-25 mcg/dose DsDv fluticasone 2020-1 Yes [id number] 1{puff} Inhale 1 [facility] furoate-michelle 2-17 Puff ity of anteroL 00:00: daily. [place] ([address]) Branch 100-25 mcg/dose DsDv fluticasone 2020-1 Yes [id number] 1{puff} Inhale 1 [facility] furoate-michelle 2-17 Puff ity of anteroL 00:00: daily. [address]) Branch 100-25 mcg/dose DsDv fluticasone 2020-1 Yes [id number] 1{puff} Inhale 1 [facility] furoate-michelle 2-17 Puff ity of anteroL 00:00: daily. [place] ([address]) Branch 100-25 mcg/dose DsDv fluticasone 2020-1 Yes [id number] 1{puff} Inhale 1 [facility] furoate-michelle 2-17 Puff ity of anteroL 00:00: daily. [address]) Branch 100-25 mcg/dose DsDv fluticasone 2020-1 Yes [id number] 1{puff} Inhale 1 [facility] furoate-michelle 2-17 Puff ity of anteroL 00:00: daily. [address]) Branch 100-25 mcg/dose DsDv fluticasone 2020-1 Yes [id number] 1{puff} Inhale 1 [facility] furoate-michelle 2-17 Puff ity of anteroL 00:00: daily. [address]) Branch 100-25 mcg/dose DsDv fluticasone 2020-1 Yes [id number] 1{puff} Inhale 1 [facility] furoate-michelle 2-17 Puff ity of anteroL 00:00: daily. [address]) Branch 100-25 mcg/dose DsDv fluticasone 2020-1 Yes [id number] 1{puff} Inhale 1 [facility] furoate-michelle 2-17 Puff ity of anteroL 00:00: daily. [place] ([address]) Branch 100-25 mcg/dose DsDv fluticasone 2020-1 Yes [id number] 1{puff} Inhale 1 [facility] furoate-michelle 2-17 Puff ity of anteroL 00:00: daily. [place] ([address]) Branch 100-25 mcg/dose DsDv fluticasone 2020-1 Yes [id number] 1{puff} Inhale 1 [facility] furoate-michelle 2-17 Puff ity of anteroL 00:00: daily. [address]) Branch 100-25 mcg/dose DsDv fluticasone 2020-1 Yes [id number] 1{puff} Inhale 1 [facility] furoate-michelle 2-17 Puff ity of anteroL 00:00: daily. [address]) Branch 100-25 mcg/dose DsDv fluticasone 2020-1 Yes [id number] 1{puff} Inhale 1 [facility] furoate-michelle 2-17 Puff ity of anteroL 00:00: daily. [address]) Branch 100-25 mcg/dose DsDv fluticasone 2020-1 Yes [id number] 1{puff} Inhale 1 [facility] furoate-michelle 2-17 Puff ity of anteroL 00:00: daily. [place] ([address]) Branch 100-25 mcg/dose DsDv fluticasone 2020- Yes [id number] 1{puff} Inhale 1 [facility] furoate-michelle 2-17 Puff ity of anteroL 00:00: daily. [place] ([address]) Branch 100-25 mcg/dose DsDv fluticasone 2020- Yes [id number] 1{puff} Inhale 1 [facility] furoate-michelle 2-17 Puff ity of anteroL 00:00: daily. [place] ([address]) Branch 100-25 mcg/dose DsDv fluticasone 2020- Yes [id number] 1{puff} Inhale 1 [facility] furoate-michelle 2-17 Puff ity of anteroL 00:00: daily. [place] ([address]) Branch 100-25 mcg/dose DsDv fluticasone 2020- Yes [id number] 1{puff} Inhale 1 [facility] furoate-michelle 2-17 Puff ity of anteroL 00:00: daily. [place] ([address]) Branch 100-25 mcg/dose DsDv fluticasone 2020- Yes [id number] 1{puff} Inhale 1 [facility] furoate-michelle 2-17 Puff ity of anteroL 00:00: daily. [place] ([address]) Branch 100-25 mcg/dose DsDv fluticasone 2020- Yes [id number] 1{puff} Inhale 1 [facility] furoate-michelle 2-17 Puff ity of anteroL 00:00: daily. [place] ([address]) Branch 100-25 mcg/dose DsDv fluticasone 2020- Yes [id number] 1{puff} Inhale 1 [facility] furoate-michelle 2-17 Puff ity of anteroL 00:00: daily. [place] ([address]) Branch 100-25 mcg/dose DsDv fluticasone 2020- Yes [id number] 1{puff} Inhale 1 [facility] furoate-michelle 2-17 Puff ity of anteroL 00:00: daily. [address]) Branch 100-25 mcg/dose DsDv fluticasone 2020-1 Yes [id number] 1{puff} Inhale 1 [facility] furoate-michelle 2-17 Puff ity of anteroL 00:00: daily. [address]) Branch 100-25 mcg/dose DsDv fluticasone 2020-1 Yes [id number] 1{puff} Inhale 1 [facility] furoate-michelle 2-17 Puff ity of anteroL 00:00: daily. [address]) Branch 100-25 mcg/dose DsDv fluticasone 2020-1 Yes [id number] 1{puff} Inhale 1 [facility] furoate-michelle 2-17 Puff ity of anteroL 00:00: daily. [address]) Branch 100-25 mcg/dose DsDv fluticasone 2020-1 Yes [id number] 1{puff} Inhale 1 [facility] furoate-michelle 2-17 Puff ity of anteroL 00:00: daily. [address]) Branch 100-25 mcg/dose DsDv fluticasone 2020-1 Yes [id number] 1{puff} Inhale 1 [facility] furoate-michelle 2-17 Puff ity of anteroL 00:00: daily. [address]) Branch 100-25 mcg/dose DsDv fluticasone 2020-1 Yes [id number] 1{puff} Inhale 1 [facility] furoate-michelle 2-17 Puff ity of anteroL 00:00: daily. [address]) Branch 100-25 mcg/dose DsDv fluticasone 2020-1 Yes [id number] 1{puff} Inhale 1 [facility] furoate-michelle 2-17 Puff ity of anteroL 00:00: daily. [address]) Branch 100-25 mcg/dose DsDv fluticasone 2020-1 Yes [id number] 1{puff} Inhale 1 [facility] furoate-michelle 2-17 Puff ity of anteroL 00:00: daily. [address]) Branch 100-25 mcg/dose DsDv fluticasone 2020-1 Yes [id number] 1{puff} Inhale 1 [facility] furoate-michelle 2-17 Puff ity of anteroL 00:00: daily. [address]) Branch 100-25 mcg/dose DsDv fluticasone 2020-1 Yes [id number] 1{puff} Inhale 1 [facility] furoate-michelle 2-17 Puff ity of anteroL 00:00: daily. [place] ([address]) Branch 100-25 mcg/dose DsDv fluticasone 2020- Yes [id number] 1{puff} Inhale 1 [facility] furoate-michelle 2-17 Puff ity of anteroL 00:00: daily. [address]) Branch 100-25 mcg/dose DsDv fluticasone 2020- Yes [id number] 1{puff} Inhale 1 [facility] furoate-michelle 2-17 Puff ity of anteroL 00:00: daily. [place] ([address]) Branch 100-25 mcg/dose DsDv fluticasone 2020- Yes [id number] 1{puff} Inhale 1 [facility] furoate-michelle 2-17 Puff ity of anteroL 00:00: daily. [address]) Branch 100-25 mcg/dose DsDv fluticasone 2020- Yes [id number] 1{puff} Inhale 1 [facility] furoate-michelle 2-17 Puff ity of anteroL 00:00: daily. [address]) Branch 100-25 mcg/dose DsDv fluticasone 2020-1 Yes [id number] 1{puff} Inhale 1 [facility] furoate-michelle 2-17 Puff ity of anteroL 00:00: daily. [place] ([address]) Branch 100-25 mcg/dose DsDv fluticasone 2020-1 Yes [id number] 1{puff} Inhale 1 [facility] furoate-michelle 2-17 Puff ity of anteroL 00:00: daily. [place] ([address]) Branch 100-25 mcg/dose DsDv fluticasone 2020-1 Yes [id number] 1{puff} Inhale 1 [facility] furoate-michelle 2-17 Puff ity of anteroL 00:00: daily. [place] ([facility] 00 [facility] ELLIP[facility]) Branch 100-25 mcg/dose DsDv famotidine 2019-11- No 20mg Take 1 [facility] ers 20 mg 1-12 11-12 tablet by ity of tablet 00:00: 00:00 mouth 2 [place] 00 :00 (two) Medical times Branch daily. famotidine 2019-11- No 20mg Take 1 [facility] ers 20 mg 1-12 11-12 tablet by ity of tablet 00:00: 00:00 mouth 2 [place] 00 :00 (two) Medical times Branch daily. spironolact 2019-11- No [id number] 25mg Take 1 [facility] one 25 mg 0-12 10-13 tablet by ity of tablet 00:00: 00:00 mouth [place] 00 :00 daily. Medical Branch darbepoetin 2020-0 Yes 60ug [facility]22 ity of (ARANESP) 14:30: [place] injection 00 Medical 60 mcg Branch darbepoetin 2020-0 Yes 60ug [facility] 4-22 ity of (ARANESP) 14:30: [place] injection 00 Medical 60 mcg Branch darbepoetin 2020-0 Yes 60ug [facility] 4-22 ity of (ARANESP) 14:30: [place] injection 00 Medical 60 mcg Branch darbepoetin 2020-0 Yes 60ug [facility] 4-22 ity of (ARANESP) 14:30: [place] injection 00 Medical 60 mcg Branch darbepoetin 2020-0 Yes 60ug [facility] 4-22 ity of (ARANESP) 14:30: [place] injection 00 Medical 60 mcg Branch darbepoetin 2020-0 Yes 60ug [facility] 4-22 ity of (ARANESP) 14:30: [place] injection 00 Medical 60 mcg Branch darbepoetin 2020-0 Yes 60ug [facility] 4-22 ity of (ARANESP) 14:30: [place] injection 00 Medical 60 mcg Branch darbepoetin 2020-0 Yes 60ug [facility] 4-22 ity of (ARANESP) 14:30: [place] injection 00 Medical 60 mcg Branch darbepoetin 2020-0 Yes 60ug [facility] 4-22 ity of (ARANESP) 14:30: [place] injection 00 Medical 60 mcg Branch darbepoetin 2020-0 Yes 60ug [facility] 4-22 ity of (ARANESP) 14:30: [place] injection 00 Medical 60 mcg Branch darbepoetin 2020-0 Yes 60ug [facility] 4-22 ity of (ARANESP) 14:30: [place] injection 00 Medical 60 mcg Branch darbepoetin 2020-0 Yes 60ug [facility] 4-22 ity of (ARANESP) 14:30: [place] injection 00 Medical 60 mcg Branch darbepoetin 2020-0 Yes 60ug [facility] 4-22 ity of (ARANESP) 14:30: [place] injection 00 Medical 60 mcg Branch darbepoetin 2020-0 Yes 60ug [facility] 4-22 ity of (ARANESP) 14:30: [place] injection 00 Medical 60 mcg Branch darbepoetin 2020-0 Yes 60ug [facility] 4-22 ity of (ARANESP) 14:30: [place] injection 00 Medical 60 mcg Branch darbepoetin 2020-0 Yes 60ug [facility] 4-22 ity of (ARANESP) 14:30: [place] injection 00 Medical 60 mcg Branch darbepoetin 2020-0 Yes 60ug [facility] 4-22 ity of (ARANESP) 14:30: [place] injection 00 Medical 60 mcg Branch darbepoetin 2020-0 Yes 60ug [facility] 4-22 ity of (ARANESP) 14:30: [place] injection 00 Medical 60 mcg Branch darbepoetin 2020-0 Yes 60ug [facility] 4-22 ity of (ARANESP) 14:30: [place] injection 00 Medical 60 mcg Branch darbepoetin 2020-0 Yes 60ug [facility] 4-22 ity of (ARANESP) 14:30: [place] injection 00 Medical 60 mcg Branch darbepoetin 2020-0 Yes 60ug [facility] 4-22 ity of (ARANESP) 14:30: [place] injection 00 Medical 60 mcg Branch darbepoetin 2020-0 Yes 60ug [facility] 4-22 ity of (ARANESP) 14:30: [place] injection 00 Medical 60 mcg Branch darbepoetin 2020-0 Yes 60ug [facility] 4-22 ity of (ARANESP) 14:30: [place] injection 00 Medical 60 mcg Branch darbepoetin 2020-0 Yes 60ug [facility] 4-22 ity of (ARANESP) 14:30: [place] injection 00 Medical 60 mcg Branch darbepoetin 2020-0 Yes 60ug [facility] 4-22 ity of (ARANESP) 14:30: [place] injection 00 Medical 60 mcg Branch darbepoetin 2020-0 Yes 60ug [facility] 4-22 ity of (ARANESP) 14:30: [place] injection 00 Medical 60 mcg Branch darbepoetin 2020-0 Yes 60ug [facility] 4-22 ity of (ARANESP) 14:30: [place] injection 00 Medical 60 mcg Branch darbepoetin 2020-0 Yes 60ug [facility] 4-22 ity of (ARANESP) 14:30: [place] injection 00 Medical 60 mcg Branch darbepoetin 2020-0 Yes 60ug [facility] 4-22 ity of (ARANESP) 14:30: [place] injection 00 Medical 60 mcg Branch darbepoetin 2020-0 Yes 60ug [facility] 4-22 ity of (ARANESP) 14:30: [place] injection 00 Medical 60 mcg Branch darbepoetin 2020-0 Yes 60ug [facility] 4-22 ity of (ARANESP) 14:30: [place] injection 00 Medical 60 mcg Branch darbepoetin 2020-0 Yes 60ug [facility] 4-22 ity of (ARANESP) 14:30: [place] injection 00 Medical 60 mcg Branch darbepoetin 2020-0 Yes 60ug [facility] 4-22 ity of (ARANESP) 14:30: [place] injection 00 Medical 60 mcg Branch darbepoetin 2020-0 Yes 60ug [facility] 4-22 ity of (ARANESP) 14:30: [place] injection 00 Medical 60 mcg Branch darbepoetin 2020-0 Yes 60ug [facility] 4-22 ity of (ARANESP) 14:30: [place] injection 00 Medical 60 mcg Branch darbepoetin 2020-0 Yes 60ug [facility] 4-22 ity of (ARANESP) 14:30: [place] injection 00 Medical 60 mcg Branch darbepoetin 2020-0 Yes 60ug [facility] 4-22 ity of (ARANESP) 14:30: [place] injection 00 Medical 60 mcg Branch darbepoetin 2020-0 Yes 60ug [facility] 4-22 ity of (ARANESP) 14:30: [place] injection 00 Medical 60 mcg Branch darbepoetin 2020-0 Yes 60ug [facility] 4-22 ity of (ARANESP) 14:30: [place] injection 00 Medical 60 mcg Branch darbepoetin 2020-0 Yes 60ug [facility] 4-22 ity of (ARANESP) 14:30: [place] injection 00 Medical 60 mcg Branch darbepoetin 2020-0 Yes 60ug [facility] 4-22 ity of (ARANESP) 14:30: [place] injection 00 Medical 60 mcg Branch darbepoetin 2020-0 Yes 60ug [facility] 4-22 ity of (ARANESP) 14:30: [place] injection 00 Medical 60 mcg Branch darbepoetin 2020-0 Yes 60ug [facility] 4-22 ity of (ARANESP) 14:30: [place] injection 00 Medical 60 mcg Branch darbepoetin 2020-0 Yes 60ug [facility] 4-22 ity of (ARANESP) 14:30: [place] injection 00 Medical 60 mcg Branch darbepoetin 2020-0 Yes 60ug [facility] 4-22 ity of (ARANESP) 14:30: [place] injection 00 Medical 60 mcg Branch darbepoetin 2020-0 Yes 60ug [facility] 4-22 ity of (ARANESP) 14:30: [place] injection 00 Medical 60 mcg Branch darbepoetin 2020-0 Yes 60ug [facility] 4-22 ity of (ARANESP) 14:30: [place] injection 00 Medical 60 mcg Branch darbepoetin 2020-0 Yes 60ug [facility] 4-22 ity of (ARANESP) 14:30: [place] injection 00 Medical 60 mcg Branch darbepoetin 2020-0 Yes 60ug [facility] 4-22 ity of (ARANESP) 14:30: [place] injection 00 Medical 60 mcg Branch darbepoetin 2020-0 Yes 60ug [facility] 4-22 ity of (ARANESP) 14:30: [place] injection 00 Medical 60 mcg Branch darbepoetin 2020-0 Yes 60ug [facility] 4-22 ity of (ARANESP) 14:30: [place] injection 00 Medical 60 mcg Branch darbepoetin 2020-0 Yes 60ug [facility] 4-22 ity of (ARANESP) 14:30: [place] injection 00 Medical 60 mcg Branch darbepoetin 2020-0 Yes 60ug [facility] 4-22 ity of (ARANESP) 14:30: [place] injection 00 Medical 60 mcg Branch darbepoetin 2020-0 Yes 60ug [facility] 4-22 ity of (ARANESP) 14:30: [place] injection 00 Medical 60 mcg Branch darbepoetin 2020-0 Yes 60ug [facility] 4-22 ity of (ARANESP) 14:30: [place] injection 00 Medical 60 mcg Branch darbepoetin 2020-0 Yes 60ug [facility] 4-22 ity of (ARANESP) 14:30: [place] injection 00 Medical 60 mcg Branch darbepoetin 2020-0 Yes 60ug [facility] 4-22 ity of (ARANESP) 14:30: [place] injection 00 Medical 60 mcg Branch darbepoetin 2020-0 Yes 60ug [facility] 4-22 ity of (ARANESP) 14:30: [place] injection 00 Medical 60 mcg Branch darbepoetin 2020-0 Yes 60ug [facility] 4-22 ity of (ARANESP) 14:30: [place] injection 00 Medical 60 mcg Branch darbepoetin 2020-0 Yes 60ug [facility] 4-22 ity of (ARANESP) 14:30: [place] injection 00 Medical 60 mcg Branch darbepoetin 2020-0 Yes 60ug [facility] 4-22 ity of (ARANESP) 14:30: [place] injection 00 Medical 60 mcg Branch darbepoetin 2020-0 Yes 60ug [facility] 4-22 ity of (ARANESP) 14:30: [place] injection 00 Medical 60 mcg Branch darbepoetin 2020-0 Yes 60ug [facility] 4-22 ity of (ARANESP) 14:30: [place] injection 00 Medical 60 mcg Branch darbepoetin 2020-0 Yes 60ug [facility] 4-22 ity of (ARANESP) 14:30: [place] injection 00 Medical 60 mcg Branch darbepoetin 2020-0 Yes 60ug [facility] 4-22 ity of (ARANESP) 14:30: [place] injection 00 Medical 60 mcg Branch darbepoetin 2020-0 Yes 60ug [facility] 4-22 ity of (ARANESP) 14:30: [place] injection 00 Medical 60 mcg Branch darbepoetin 2020-0 Yes 60ug [facility] 4-22 ity of (ARANESP) 14:30: [place] injection 00 Medical 60 mcg Branch darbepoetin 2020-0 Yes 60ug [facility] 4-22 ity of (ARANESP) 14:30: [place] injection 00 Medical 60 mcg Branch darbepoetin 2020-0 Yes 60ug [facility] 4-22 ity of (ARANESP) 14:30: [place] injection 00 Medical 60 mcg Branch darbepoetin 2020-0 Yes 60ug [facility] 4-22 ity of (ARANESP) 14:30: [place] injection 00 Medical 60 mcg Branch darbepoetin 2020-0 Yes 60ug [facility] 4-22 ity of (ARANESP) 14:30: [place] injection 00 Medical 60 mcg Branch darbepoetin 2020-0 Yes 60ug [facility] 4-22 ity of (ARANESP) 14:30: [place] injection 00 Medical 60 mcg Branch darbepoetin 2020-0 Yes 60ug [facility] 4-22 ity of (ARANESP) 14:30: [place] injection 00 Medical 60 mcg Branch darbepoetin 2020-0 Yes 60ug [facility] 4-22 ity of (ARANESP) 14:30: [place] injection 00 Medical 60 mcg Branch darbepoetin 2020-0 Yes 60ug [facility] 4-22 ity of (ARANESP) 14:30: [place] injection 00 Medical 60 mcg Branch darbepoetin 2020-0 Yes 60ug [facility] 4-22 ity of (ARANESP) 14:30: [place] injection 00 Medical 60 mcg Branch darbepoetin 2020-0 Yes 60ug [facility] 4-22 ity of (ARANESP) 14:30: [place] injection 00 Medical 60 mcg Branch darbepoetin 2020-0 Yes 60ug [facility] 4-22 ity of (ARANESP) 14:30: [place] injection 00 Medical 60 mcg Branch darbepoetin 2020-0 Yes 60ug [facility] 4-22 ity of (ARANESP) 14:30: [place] injection 00 Medical 60 mcg Branch darbepoetin 2020-0 Yes 60ug [facility] 4-22 ity of (ARANESP) 14:30: [place] injection 00 Medical 60 mcg Branch darbepoetin 2020-0 Yes 60ug [facility] 4-22 ity of (ARANESP) 14:30: [place] injection 00 Medical 60 mcg Branch darbepoetin 2020-0 Yes 60ug [facility] 4-22 ity of (ARANESP) 14:30: [place] injection 00 Medical 60 mcg Branch darbepoetin 2020-0 Yes 60ug [facility] 4-22 ity of (ARANESP) 14:30: [place] injection 00 Medical 60 mcg Branch darbepoetin 2020-0 Yes 60ug [facility] 4-22 ity of (ARANESP) 14:30: [place] injection 00 Medical 60 mcg Branch darbepoetin 2020-0 Yes 60ug [facility] 4-22 ity of (ARANESP) 14:30: [place] injection 00 Medical 60 mcg Branch darbepoetin 2020-0 Yes 60ug [facility] 4-22 ity of (ARANESP) 14:30: [place] injection 00 Medical 60 mcg Branch darbepoetin 2020-0 Yes 60ug [facility] 4-22 ity of (ARANESP) 14:30: [place] injection 00 Medical 60 mcg Branch darbepoetin 2020-0 Yes 60ug [facility] 4-22 ity of (ARANESP) 14:30: [place] injection 00 Medical 60 mcg Branch darbepoetin 2020-0 Yes 60ug [facility] 4-22 ity of (ARANESP) 14:30: [place] injection 00 Medical 60 mcg Branch darbepoetin 2020-0 Yes 60ug [facility] 4-22 ity of (ARANESP) 14:30: [place] injection 00 Medical 60 mcg Branch darbepoetin 2020-0 Yes 60ug [facility] 4-22 ity of (ARANESP) 14:30: [place] injection 00 Medical 60 mcg Branch darbepoetin 2020-0 Yes 60ug [facility] 4-22 ity of (ARANESP) 14:30: [place] injection 00 Medical 60 mcg Branch darbepoetin 2020-0 Yes 60ug [facility] 4-22 ity of (ARANESP) 14:30: [place] injection 00 Medical 60 mcg Branch darbepoetin 2020-0 Yes 60ug [facility] 4-22 ity of (ARANESP) 14:30: [place] injection 00 Medical 60 mcg Branch darbepoetin 2020-0 Yes 60ug [facility] 4-22 ity of (ARANESP) 14:30: [place] injection 00 Medical 60 mcg Branch darbepoetin 2020-0 Yes 60ug [facility] 4-22 it[facility] of (ARANESP) 14:30: [place] injection 00 Medical 60 mcg Branch darbepoetin 2020-0 Yes 60ug [facility] 4[facility]22 [facility] of (ARANESP) 14:30: [place] injection 00 Medical 60 mcg Branch darbepoetin 2020-0 Yes 60ug [facility] 4[facility]22 [facility] of (ARANESP) 14:30: [place] injection 00 Medical 60 mcg Branch darbepoetin 2020-0 Yes 60ug [facility] 4[facility]22 [facility] of (ARANESP) 14:30: [place] injection 00 Medical 60 mcg Branch darbepoetin 2020-0 Yes 60ug [facility] 4[facility]22 [facility] of (ARANESP) 14:30: [place] injection 00 Medical 60 mcg Branch darbepoetin 2020-0 Yes 60ug [facility] 4[facility]22 [facility] of (ARANESP) 14:30: [place] injection 00 Medical 60 mcg Branch darbepoetin 2020-0 Yes 60ug [facility] 4[facility]22 [facility] of (ARANESP) 14:30: [place] injection 00 Medical 60 mcg Branch darbepoetin 2020-0 Yes 60ug [facility] 4[facility]22 [facility] of (ARANESP) 14:30: [place] injection 00 Medical 60 mcg Branch darbepoetin 2020-0 Yes 60ug [facility] 4[facility]22 [facility] of (ARANESP) 14:30: [place] injection 00 Medical 60 mcg Branch darbepoetin 2020-0 Yes 60ug [facility] 4[facility]22 [facility] of (ARANESP) 14:30: [place] injection 00 Medical 60 mcg Branch darbepoetin 2020-0 Yes 60ug [facility] 4[facility]22 [facility] of (ARANESP) 14:30: [place] injection 00 Medical 60 mcg Branch darbepoetin 2020-0 Yes 60ug [facility] 4[facility]22 [facility] of (ARANESP) 14:30: [place] injection 00 Medical 60 mcg Branch darbepoetin 2020-0 Yes 60ug [facility] 4[facility]22 [facility] of (ARANESP) 14:30: [place] injection 00 Medical 60 mcg Branch darbepoetin 2020-0 Yes 60ug [facility] 4[facility]22 [facility] of (ARANESP) 14:30: [place] injection 00 Medical 60 mcg Branch darbepoetin 2020-0 Yes [facility] (ARANESP) 14:30: [place] injection 00 [facility] 60 mcg [facility] darbepoetin 2020-0 Yes 60ug [facility] (ARANESP) 14:30: [place] injection 00 [facility] 60 mcg Branch darbepoetin 2020-0 Yes 60ug [facility] (ARANESP) 14:30: [place] injection 00 Medical 60 mcg Branch darbepoetin 2020-0 Yes 60ug [facility] (ARANESP) 14:30: [place] injection 00 Medical 60 mcg Branch darbepoetin 2020-0 Yes 60ug [facility] (ARANESP) 14:30: [place] injection 00 Medical 60 mcg Branch darbepoetin 2020-0 Yes 60ug [facility] (ARANESP) 14:30: [place] injection 00 Medical 60 mcg Branch darbepoetin 2020-0 Yes 60ug [facility] (ARANESP) 14:30: [place] injection 00 Medical 60 mcg Branch darbepoetin 2020-0 Yes 60ug [facility] (ARANESP) 14:30: [place] injection 00 Medical 60 mcg Branch darbepoetin 2020-0 Yes 60ug [facility] (ARANESP) 14:30: [place] injection 00 Medical 60 mcg Branch darbepoetin 2020-0 Yes 60ug [facility] (ARANESP) 14:30: [place] injection 00 Medical 60 mcg Branch darbepoetin 2020-0 Yes 60ug [facility] (ARANESP) 14:30: [place] injection 00 Medical 60 mcg Branch darbepoetin 2020-0 Yes 60ug [facility] (ARANESP) 14:30: [place] injection 00 Medical 60 mcg Branch darbepoetin 2020-0 Yes 60ug [facility] (ARANESP) 14:30: [place] injection 00 Medical 60 mcg Branch darbepoetin 2020-0 Yes 60ug [facility] (ARANESP) 14:30: [place] injection 00 Medical 60 mcg Branch darbepoetin 2020-0 Yes 60ug [facility] (ARANESP) 14:30: [place] injection 00 Medical 60 mcg Branch darbepoetin 2020-0 Yes 60ug [facility] (ARANESP) 14:30: [place] injection 00 Medical 60 mcg Branch darbepoetin 2020-0 Yes 60ug [facility] (ARANESP) 14:30: [place] injection 00 Medical 60 mcg Branch darbepoetin 2020-0 Yes 60ug [facility] (ARANESP) 14:30: [place] injection 00 Medical 60 mcg Branch darbepoetin 2020-0 Yes 60ug [facility] (ARANESP) 14:30: [place] injection 00 Medical 60 mcg Branch darbepoetin 2020-0 Yes 60ug [facility] (ARANESP) 14:30: [place] injection 00 Medical 60 mcg Branch darbepoetin 2020-0 Yes 60ug [facility] (ARANESP) 14:30: [place] injection 00 Medical 60 mcg Branch darbepoetin 2020-0 Yes 60ug [facility] (ARANESP) 14:30: [place] injection 00 Medical 60 mcg Branch darbepoetin 2020-0 Yes 60ug [facility] (ARANESP) 14:30: [place] injection 00 Medical 60 mcg Branch darbepoetin 2020-0 Yes 60ug [facility] (ARANESP) 14:30: [place] injection 00 Medical 60 mcg Branch darbepoetin 2020-0 Yes 60ug [facility] (ARANESP) 14:30: [place] injection 00 Medical 60 mcg Branch darbepoetin 2020-0 Yes 60ug [facility] (ARANESP) 14:30: [place] injection 00 Medical 60 mcg Branch darbepoetin 2020-0 Yes 60ug [facility] (ARANESP) 14:30: [place] injection 00 Medical 60 mcg Branch darbepoetin 2020-0 Yes 60ug [facility] (ARANESP) 14:30: [place] injection 00 Medical 60 mcg Branch darbepoetin 2020-0 Yes 60ug [facility] (ARANESP) 14:30: [place] injection 00 Medical 60 mcg Branch darbepoetin 2020-0 Yes 60ug [facility] (ARANESP) 14:30: [place] injection 00 Medical 60 mcg Branch darbepoetin 2020-0 Yes 60ug [facility] (ARANESP) 14:30: [place] injection 00 Medical 60 mcg Branch darbepoetin 2020-0 Yes 60ug [facility] (ARANESP) 14:30: [place] injection 00 Medical 60 mcg Branch darbepoetin 2020-0 Yes 60ug [facility] (ARANESP) 14:30: [place] injection 00 Medical 60 mcg Branch darbepoetin 2020-0 Yes 60ug [facility] (ARANESP) 14:30: [place] injection 00 Medical 60 mcg Branch darbepoetin 2020-0 Yes 60ug [facility] (ARANESP) 14:30: [place] injection 00 Medical 60 mcg Branch darbepoetin 2020-0 Yes 60ug [facility] of (ARANESP) 14:30: [place] injection 00 Medical 60 mcg Branch darbepoetin 2020-0 Yes 60ug [facility] (ARANESP) 14:30: [place] injection 00 Medical 60 mcg Branch darbepoetin 2020-0 Yes 60ug [facility] (ARANESP) 14:30: [place] injection 00 Medical 60 mcg Branch darbepoetin 2020-0 Yes 60ug [facility] (ARANESP) 14:30: [place] injection 00 Medical 60 mcg Branch darbepoetin 2020-0 Yes 60ug [facility] (ARANESP) 14:30: [place] injection 00 Medical 60 mcg Branch darbepoetin 2020-0 Yes 60ug [facility] (ARANESP) 14:30: [place] injection 00 Medical 60 mcg Branch darbepoetin 2020-0 Yes 60ug [facility] (ARANESP) 14:30: [place] injection 00 Medical 60 mcg Branch darbepoetin 2020-0 Yes 60ug [facility] (ARANESP) 14:30: [place] injection 00 Medical 60 mcg Branch darbepoetin 2020-0 Yes 60ug [facility] (ARANESP) 14:30: [place] injection 00 Medical 60 mcg Branch Lancets 0 Yes Use as [facility] (ONE TOUCH 9-05 directed ity o f ULTRASOFT 00:00: [place] LANCETS) Medical Mis Branch Lancets Yes Use as Univers (ONE TOUCH 9-05 directed ity o f ULTRASOFT 00:00: [place] LANCETS) Medical Mis [facility] Lancets Yes Use as Univers (ONE TOUCH 9-05 directed ity o f ULTRASOFT 00:00: [place] LANCETS) [facility] [facility] [place] [facility] as [facility] (ONE TOUCH 9-05 directed ity o f ULTRASOFT 00:00: [place] LANCETS) [facility] [facility] [place] Yes Use as [facility] (ONE TOUCH 9-05 directed ity o f ULTRASOFT 00:00: [place] LANCETS) 00 Medical Misc Branch Lancets Yes Use as Univers (ONE TOUCH 9-05 directed ity o f ULTRASOFT 00:00: [place] LANCETS) 00 Medical Misc Branch Lancets Yes Use as Univers (ONE TOUCH 9-05 directed ity o f ULTRASOFT 00:00: [place] LANCETS) 00 Medical Misc Branch Lancets Yes Use as [facility] (ONE TOUCH 9-05 directed ity o f ULTRASOFT 00:00: [place] LANCETS) 00 Medical Misc Branch Lancets Yes Use as [facility] (ONE TOUCH 9-05 directed ity o f ULTRASOFT 00:00: [place] LANCETS) 00 Medical Misc Branch Lancets Yes Use as [facility] (ONE TOUCH 9-05 directed ity o f ULTRASOFT 00:00: [place] LANCETS) 00 Medical Misc Branch Lancets Yes Use as [facility] (ONE TOUCH 9-05 directed ity o f ULTRASOFT 00:00: [place] LANCETS) 00 Medical Misc Branch Lancets Yes Use as [facility] (ONE TOUCH 9-05 directed ity o f ULTRASOFT 00:00: [place] LANCETS) 00 Medical Misc [facility] Lancets Yes Use as [facility] (ONE TOUCH 9-05 directed ity o f ULTRASOFT 00:00: [place] LANCETS) 00 Medical Misc [facility] Lancets Yes Use as [facility] (ONE TOUCH 9-05 directed ity o f ULTRASOFT 00:00: [place] LANCETS) 00 Medical Misc Branch Lancets Yes Use as [facility] (ONE TOUCH 9-05 directed ity o f ULTRASOFT 00:00: [place] LANCETS) 00 Medical Misc Branch Lancets Yes Use as Univers (ONE TOUCH 9-05 directed ity o f ULTRASOFT 00:00: [place] LANCETS) 00 Medical Misc [facility] Lancets Yes Use as [facility] (ONE TOUCH 9-05 directed ity o f ULTRASOFT 00:00: [place] LANCETS) 00 Medical Misc Branch Lancets 0 Yes Use as Univers (ONE TOUCH 9-05 directed ity o f ULTRASOFT 00:00: [place] LANCETS) 00 [facility] Misc [facility] Lancets 0 Yes Use as [facility] (ONE TOUCH 9-05 directed ity o f ULTRASOFT 00:00: [place] LANCETS) 00 Medical Misc Branch Lancets Yes Use as [facility] (ONE TOUCH 9-05 directed ity o f ULTRASOFT 00:00: [place] LANCETS) 00 Medical Misc Branch Lancets 0 Yes Use as Univers (ONE TOUCH 9-05 directed ity o f ULTRASOFT 00:00: [place] LANCETS) 00 Medical Misc Branch Lancets Yes Use as Univers (ONE TOUCH 9-05 directed ity o f ULTRASOFT 00:00: [place] LANCETS) 00 Medical Misc Branch Lancets Yes Use as [facility] (ONE TOUCH 9-05 directed ity o f ULTRASOFT 00:00: [place] LANCETS) 00 Medical Misc Branch Lancets Yes Use as Univers (ONE TOUCH 9-05 directed ity o f ULTRASOFT 00:00: [place] LANCETS) 00 Medical Misc Branch Lancets Yes Use as Univers (ONE TOUCH 9-05 directed ity o f ULTRASOFT 00:00: [place] LANCETS) 00 Medical Misc Branch Lancets Yes Use as Univers (ONE TOUCH 9-05 directed ity o f ULTRASOFT 00:00: [place] LANCETS) 00 Medical Misc Branch Lancets Yes Use as Univers (ONE TOUCH 9-05 directed ity o f ULTRASOFT 00:00: [place] LANCETS) 00 Medical Misc Branch Lancets Yes Use as Univers (ONE TOUCH 9-05 directed ity o f ULTRASOFT 00:00: [place] LANCETS) 00 Medical Misc Branch Lancets Yes Use as Univers (ONE TOUCH 9-05 directed ity o f ULTRASOFT 00:00: [place] LANCETS) 00 Medical Misc Branch Lancets 0 Yes Use as Univers (ONE TOUCH 9-05 directed ity o f ULTRASOFT 00:00: [place] LANCETS) 00 Medical Misc Branch Lancets 0 Yes Use as Univers (ONE TOUCH 9-05 directed ity o f ULTRASOFT 00:00: [place] LANCETS) 00 Medical Misc Branch Lancets 0 Yes Use as Univers (ONE TOUCH 9-05 directed ity o f ULTRASOFT 00:00: [place] LANCETS) 00 Medical Misc Branch Lancets 0 Yes Use as Univers (ONE TOUCH 9-05 directed ity o f ULTRASOFT 00:00: [place] LANCETS) 00 Medical Misc Branch Lancets 2013-0 Yes Use as Univers (ONE TOUCH 9-05 directed ity o f ULTRASOFT 00:00: [place] LANCETS) 00 Medical Misc Branch Lancets 2013-0 Yes Use as Univers (ONE TOUCH 9-05 directed ity o f ULTRASOFT 00:00: [place] LANCETS) 00 Medical Misc Branch Lancets 0 Yes Use as Univers (ONE TOUCH 9-05 directed ity o f ULTRASOFT 00:00: [place] LANCETS) 00 Medical Misc Branch Lancets 0 Yes Use as Univers (ONE TOUCH 9-05 directed ity o f ULTRASOFT 00:00: [place] LANCETS) 00 Medical Misc Branch Lancets 0 Yes Use as Univers (ONE TOUCH 9-05 directed ity o f ULTRASOFT 00:00: [place] LANCETS) 00 Medical Misc Branch Lancets 0 Yes Use as Univers (ONE TOUCH 9-05 directed ity o f ULTRASOFT 00:00: [place] LANCETS) 00 Medical Misc Branch Lancets 0 Yes Use as Univers (ONE TOUCH 9-05 directed ity o f ULTRASOFT 00:00: [place] LANCETS) 00 Medical Misc Branch Lancets 0 Yes Use as Univers (ONE TOUCH 9-05 directed ity o f ULTRASOFT 00:00: [place] LANCETS) 00 Medical Misc Branch Lancets 0 Yes Use as Univers (ONE TOUCH 9-05 directed ity o f ULTRASOFT 00:00: [place] LANCETS) 00 Medical Misc Branch Lancets 2013-0 Yes Use as Univers (ONE TOUCH 9-05 directed ity o f ULTRASOFT 00:00: [place] LANCETS) 00 Medical Misc Branch Lancets 2013-0 Yes Use as Univers (ONE TOUCH 9-05 directed ity o f ULTRASOFT 00:00: [place] LANCETS) 00 Medical Misc Branch Lancets 2013-0 Yes Use as Univers (ONE TOUCH 9-05 directed ity o f ULTRASOFT 00:00: [place] LANCETS) 00 Medical Misc Branch Lancets 2013-0 Yes Use as Univers (ONE TOUCH 9-05 directed ity o f ULTRASOFT 00:00: [place] LANCETS) 00 Medical Misc Branch Lancets 2014-0 Yes Use as Univers (ONE TOUCH 9-05 directed ity o f ULTRASOFT 00:00: [place] LANCETS) 00 Medical Misc Branch Lancets Yes Use as Univers (ONE TOUCH 9-05 directed ity o f ULTRASOFT 00:00: [place] LANCETS) 00 Medical Misc Branch Lancets Yes Use as Univers (ONE TOUCH 9-05 directed ity o f ULTRASOFT 00:00: [place] LANCETS) 00 Medical Misc Branch Lancets Yes Use as Univers (ONE TOUCH 9-05 directed ity o f ULTRASOFT 00:00: [place] LANCETS) 00 Medical Misc Branch Lancets Yes Use as Univers (ONE TOUCH 9-05 directed ity o f ULTRASOFT 00:00: [place] LANCETS) 00 Medical Misc Branch Lancets Yes Use as Univers (ONE TOUCH 9-05 directed ity o f ULTRASOFT 00:00: [place] LANCETS) 00 Medical Misc Branch Lancets Yes Use as Univers (ONE TOUCH 9-05 directed ity o f ULTRASOFT 00:00: [place] LANCETS) 00 Medical Misc Branch Lancets Yes Use as Univers (ONE TOUCH 9-05 directed ity o f ULTRASOFT 00:00: [place] LANCETS) 00 Medical Misc Branch Lancets Yes Use as Univers (ONE TOUCH 9-05 directed ity o f ULTRASOFT 00:00: [place] LANCETS) 00 Medical Misc Branch Lancets Yes Use as Univers (ONE TOUCH 9-05 directed ity o f ULTRASOFT 00:00: [place] LANCETS) 00 Medical Misc Branch Lancets 0 Yes Use as Univers (ONE TOUCH 9-05 directed ity o f ULTRASOFT 00:00: [place] LANCETS) 00 Medical Misc Branch Lancets 0 Yes Use as Univers (ONE TOUCH 9-05 directed ity o f ULTRASOFT 00:00: [place] LANCETS) 00 Medical Misc Branch Lancets 0 Yes Use as Univers (ONE TOUCH 9-05 directed ity o f ULTRASOFT 00:00: [place] LANCETS) 00 Medical Misc Branch Lancets 0 Yes Use as Univers (ONE TOUCH 9-05 directed ity o f ULTRASOFT 00:00: [place] LANCETS) 00 Medical Misc Branch Lancets 2014-0 Yes Use as Univers (ONE TOUCH 9-05 directed ity o f ULTRASOFT 00:00: [place] LANCETS) 00 Medical Misc Branch Lancets Yes Use as Univers (ONE TOUCH 9-05 directed ity o f ULTRASOFT 00:00: [place] LANCETS) 00 Medical Misc Branch Lancets 0 Yes Use as Univers (ONE TOUCH 9-05 directed ity o f ULTRASOFT 00:00: [place] LANCETS) 00 Medical Misc Branch Lancets Yes Use as Univers (ONE TOUCH 9-05 directed ity o f ULTRASOFT 00:00: [place] LANCETS) 00 Medical Misc Branch Lancets Yes Use as Univers (ONE TOUCH 9-05 directed ity o f ULTRASOFT 00:00: [place] LANCETS) 00 Medical Misc Branch Lancets Yes Use as Univers (ONE TOUCH 9-05 directed ity o f ULTRASOFT 00:00: [place] LANCETS) 00 Medical Misc Branch Lancets Yes Use as Univers (ONE TOUCH 9-05 directed ity o f ULTRASOFT 00:00: [place] LANCETS) 00 Medical Misc Branch Lancets Yes Use as Univers (ONE TOUCH 9-05 directed ity o f ULTRASOFT 00:00: [place] LANCETS) 00 Medical Misc Branch Lancets Yes Use as Univers (ONE TOUCH 9-05 directed ity o f ULTRASOFT 00:00: [place] LANCETS) 00 Medical Misc Branch Lancets Yes Use as Univers (ONE TOUCH 9-05 directed ity o f ULTRASOFT 00:00: [place] LANCETS) 00 Medical Misc Branch Lancets 0 Yes Use as Univers (ONE TOUCH 9-05 directed ity o f ULTRASOFT 00:00: [place] LANCETS) 00 Medical Misc Branch Lancets 0 Yes Use as Univers (ONE TOUCH 9-05 directed ity o f ULTRASOFT 00:00: [place] LANCETS) 00 Medical Misc Branch Lancets 0 Yes Use as Univers (ONE TOUCH 9-05 directed ity o f ULTRASOFT 00:00: [place] LANCETS) 00 Medical Misc Branch Lancets 0 Yes Use as Univers (ONE TOUCH 9-05 directed ity o f ULTRASOFT 00:00: [place] LANCETS) 00 Medical Misc Branch Lancets Yes Use as Univers (ONE TOUCH 9-05 directed ity o f ULTRASOFT 00:00: [place] LANCETS) 00 Medical Misc Branch Lancets 0 Yes Use as Univers (ONE TOUCH 9-05 directed ity o f ULTRASOFT 00:00: [place] LANCETS) 00 Medical Misc Branch Lancets Yes Use as Univers (ONE TOUCH 9-05 directed ity o f ULTRASOFT 00:00: [place] LANCETS) 00 Medical Misc Branch Lancets Yes Use as Univers (ONE TOUCH 9-05 directed ity o f ULTRASOFT 00:00: [place] LANCETS) 00 Medical Misc Branch Lancets Yes Use as Univers (ONE TOUCH 9-05 directed ity o f ULTRASOFT 00:00: [place] LANCETS) 00 Medical Misc Branch Lancets Yes Use as Univers (ONE TOUCH 9-05 directed ity o f ULTRASOFT 00:00: [place] LANCETS) 00 Medical Misc Branch Lancets Yes Use as Univers (ONE TOUCH 9-05 directed ity o f ULTRASOFT 00:00: [place] LANCETS) 00 Medical Misc Branch Lancets Yes Use as Univers (ONE TOUCH 9-05 directed ity o f ULTRASOFT 00:00: [place] LANCETS) 00 Medical Misc Branch Lancets Yes Use as Univers (ONE TOUCH 9-05 directed ity o f ULTRASOFT 00:00: [place] LANCETS) 00 Medical Misc Branch Lancets Yes Use as Univers (ONE TOUCH 9-05 directed ity o f ULTRASOFT 00:00: [place] LANCETS) 00 Medical Misc Branch Lancets 0 Yes Use as Univers (ONE TOUCH 9-05 directed ity o f ULTRASOFT 00:00: [place] LANCETS) 00 Medical Misc Branch Lancets 0 Yes Use as Univers (ONE TOUCH 9-05 directed ity o f ULTRASOFT 00:00: [place] LANCETS) 00 Medical Misc Branch Lancets 0 Yes Use as Univers (ONE TOUCH 9-05 directed ity o f ULTRASOFT 00:00: [place] LANCETS) 00 Medical Misc Branch Lancets 2013-0 Yes Use as Univers (ONE TOUCH 9-05 directed ity o f ULTRASOFT 00:00: [place] LANCETS) 00 Medical Misc Branch Lancets 0 Yes Use as Univers (ONE TOUCH 9-05 directed ity o f ULTRASOFT 00:00: [place] LANCETS) 00 Medical Misc Branch Lancets 0 Yes Use as Univers (ONE TOUCH 9-05 directed ity o f ULTRASOFT 00:00: [place] LANCETS) 00 Medical Misc Branch Lancets 0 Yes Use as Univers (ONE TOUCH 9-05 directed ity o f ULTRASOFT 00:00: [place] LANCETS) 00 Medical Misc Branch Lancets 0 Yes Use as Univers (ONE TOUCH 9-05 directed ity o f ULTRASOFT 00:00: [place] LANCETS) 00 Medical Misc Branch Lancets 0 Yes Use as Univers (ONE TOUCH 9-05 directed ity o f ULTRASOFT 00:00: [place] LANCETS) 00 Medical Misc Branch Lancets 0 Yes Use as Univers (ONE TOUCH 9-05 directed ity o f ULTRASOFT 00:00: [place] LANCETS) 00 Medical Misc Branch Lancets 0 Yes Use as Univers (ONE TOUCH 9-05 directed ity o f ULTRASOFT 00:00: [place] LANCETS) 00 Medical Misc Branch Lancets Yes Use as Univers (ONE TOUCH 9-05 directed ity o f ULTRASOFT 00:00: [place] LANCETS) 00 Medical Misc Branch Lancets 0 Yes Use as Univers (ONE TOUCH 9-05 directed ity o f ULTRASOFT 00:00: [place] LANCETS) 00 Medical Misc Branch Lancets 0 Yes Use as Univers (ONE TOUCH 9-05 directed ity o f ULTRASOFT 00:00: [place] LANCETS) 00 Medical Misc Branch Lancets 0 Yes Use as Univers (ONE TOUCH 9-05 directed ity o f ULTRASOFT 00:00: [place] LANCETS) 00 Medical Misc Branch Lancets 2013-0 Yes Use as Univers (ONE TOUCH 9-05 directed ity o f ULTRASOFT 00:00: [place] LANCETS) 00 Medical Misc Branch Lancets 2013-0 Yes Use as Univers (ONE TOUCH 9-05 directed ity o f ULTRASOFT 00:00: [place] LANCETS) 00 Medical Misc Branch Lancets 2013-0 Yes Use as Univers (ONE TOUCH 9-05 directed ity o f ULTRASOFT 00:00: [place] LANCETS) 00 Medical Misc Branch Lancets Yes Use as Univers (ONE TOUCH 9-05 directed ity o f ULTRASOFT 00:00: [place] LANCETS) 00 Medical Misc Branch Lancets 0 Yes Use as Univers (ONE TOUCH 9-05 directed ity o f ULTRASOFT 00:00: [place] LANCETS) 00 Medical Misc Branch Lancets Yes Use as Univers (ONE TOUCH 9-05 directed ity o f ULTRASOFT 00:00: [place] LANCETS) 00 Medical Misc Branch Lancets Yes Use as Univers (ONE TOUCH 9-05 directed ity o f ULTRASOFT 00:00: [place] LANCETS) 00 Medical Misc Branch Lancets 0 Yes Use as Univers (ONE TOUCH 9-05 directed ity o f ULTRASOFT 00:00: [place] LANCETS) 00 Medical Misc Branch Lancets Yes Use as Univers (ONE TOUCH 9-05 directed ity o f ULTRASOFT 00:00: [place] LANCETS) 00 Medical Misc Branch Lancets Yes Use as Univers (ONE TOUCH 9-05 directed ity o f ULTRASOFT 00:00: [place] LANCETS) 00 Medical Misc Branch Lancets Yes Use as Univers (ONE TOUCH 9-05 directed ity o f ULTRASOFT 00:00: [place] LANCETS) 00 Medical Misc Branch Lancets Yes Use as Univers (ONE TOUCH 9-05 directed ity o f ULTRASOFT 00:00: [place] LANCETS) 00 Medical Misc Branch Lancets 0 Yes Use as Univers (ONE TOUCH 9-05 directed ity o f ULTRASOFT 00:00: [place] LANCETS) 00 Medical Misc Branch Lancets 0 Yes Use as Univers (ONE TOUCH 9-05 directed ity o f ULTRASOFT 00:00: [place] LANCETS) 00 Medical Misc Branch Lancets 0 Yes Use as Univers (ONE TOUCH 9-05 directed ity o f ULTRASOFT 00:00: [place] LANCETS) 00 Medical Misc Branch Lancets 0 Yes Use as Univers (ONE TOUCH 9-05 directed ity o f ULTRASOFT 00:00: [place] LANCETS) 00 Medical Misc Branch Lancets 0 Yes Use as [facility] (ONE TOUCH 9-05 directed ity o f ULTRASOFT 00:00: [place] LANCETS) 00 Medical Misc Branch Lancets Yes Use as [facility] (ONE TOUCH 9-05 directed ity o f ULTRASOFT 00:00: [place] LANCETS) 00 Medical Misc Branch Lancets 0 Yes Use as [facility] (ONE TOUCH 9-05 directed ity o f ULTRASOFT 00:00: [place] LANCETS) 00 Medical Misc Branch Lancets Yes Use as [facility] (ONE TOUCH 9-05 directed ity o f ULTRASOFT 00:00: [place] LANCETS) 00 Medical Misc Branch Lancets Yes Use as Univers (ONE TOUCH 9-05 directed ity o f ULTRASOFT 00:00: [place] LANCETS) 00 Medical Misc Branch Lancets Yes Use as [facility] (ONE TOUCH 9-05 directed ity o f ULTRASOFT 00:00: [place] LANCETS) 00 Medical Misc Branch Lancets Yes Use as Univers (ONE TOUCH 9-05 directed ity o f ULTRASOFT 00:00: [place] LANCETS) 00 Medical Misc Branch Lancets Yes Use as Univers (ONE TOUCH 9-05 directed ity o f ULTRASOFT 00:00: [place] LANCETS) 00 Medical Misc Branch Lancets Yes Use as Univers (ONE TOUCH 9-05 directed ity o f ULTRASOFT 00:00: [place] LANCETS) 00 Medical Misc Branch Lancets Yes Use as Univers (ONE TOUCH 9-05 directed ity o f ULTRASOFT 00:00: [place] LANCETS) 00 Medical Misc Branch Lancets Yes Use as [facility] (ONE TOUCH 9-05 directed ity o f ULTRASOFT 00:00: [place] LANCETS) 00 Medical Misc Branch Lancets Yes Use as [facility] (ONE TOUCH 9-05 directed ity o f ULTRASOFT 00:00: [place] LANCETS) 00 Medical Misc Branch Lancets Yes Use as Univers (ONE TOUCH 9-05 directed ity o f ULTRASOFT 00:00: [place] LANCETS) 00 Medical Misc Branch Lancets 0 Yes Use as [facility] (ONE TOUCH 9-05 directed ity o f ULTRASOFT 00:00: [place] LANCETS) 00 Medical Misc Branch Lancets 0 Yes Use as [facility] (ONE TOUCH 9-05 directed ity o f ULTRASOFT 00:00: [place] LANCETS) 00 Medical Misc Branch Lancets Yes Use as [facility] (ONE TOUCH 9-05 directed ity o f ULTRASOFT 00:00: [place] LANCETS) 00 Medical Misc Branch Lancets Yes Use as [facility] (ONE TOUCH 9-05 directed ity o f ULTRASOFT 00:00: [place] LANCETS) 00 Medical Misc Branch Lancets Yes Use as [facility] (ONE TOUCH 9-05 directed ity o f ULTRASOFT 00:00: [place] LANCETS) 00 Medical Misc Branch Lancets Yes Use as Univers (ONE TOUCH 9-05 directed ity o f ULTRASOFT 00:00: [place] LANCETS) 00 Medical Misc Branch Lancets Yes Use as [facility] (ONE TOUCH 9-05 directed ity o f ULTRASOFT 00:00: [place] LANCETS) 00 Medical Misc Branch Lancets Yes Use as [facility] (ONE TOUCH 9-05 directed ity o f ULTRASOFT 00:00: [place] LANCETS) 00 Medical Misc Branch Lancets Yes Use as [facility] (ONE TOUCH 9-05 directed ity o f ULTRASOFT 00:00: [place] LANCETS) 00 Medical Misc Branch Lancets Yes Use as [facility] (ONE TOUCH 9-05 directed ity o f ULTRASOFT 00:00: [place] LANCETS) 00 Medical Misc Branch Lancets Yes Use as [facility] (ONE TOUCH 9-05 directed ity o f ULTRASOFT 00:00: [place] LANCETS) 00 Medical Misc Branch Lancets Yes Use as [facility] (ONE TOUCH 9-05 directed ity o f ULTRASOFT 00:00: [place] LANCETS) 00 Medical Misc Branch Lancets Yes Use as [facility] (ONE TOUCH 9-05 directed ity o f ULTRASOFT 00:00: [place] LANCETS) 00 Medical Misc Branch Lancets Yes Use as [facility] (ONE TOUCH 9-05 directed ity o f ULTRASOFT 00:00: [place] LANCETS) 00 [facility] Misc [facility] Lancets 0 Yes Use as [facility] (ONE TOUCH 9-05 directed ity o f ULTRASOFT 00:00: [place] LANCETS) 00 Medical Misc Branch Lancets 0 Yes Use as [facility] (ONE TOUCH 9-05 directed ity o f ULTRASOFT 00:00: [place] LANCETS) 00 Medical Misc Branch Lancets Yes Use as [facility] (ONE TOUCH 9-05 directed ity o f ULTRASOFT 00:00: [place] LANCETS) 00 Medical Misc [facility] Lancets Yes Use as [facility] (ONE TOUCH 9-05 directed ity o f ULTRASOFT 00:00: [place] LANCETS) 00 Medical Misc Branch Lancets Yes Use as [facility] (ONE TOUCH 9-05 directed ity o f ULTRASOFT 00:00: [place] LANCETS) 00 Medical Misc Branch Lancets Yes Use as [facility] (ONE TOUCH 9-05 directed ity o f ULTRASOFT 00:00: [place] LANCETS) 00 Medical Misc Branch Lancets Yes Use as [facility] (ONE TOUCH 9-05 directed ity o f ULTRASOFT 00:00: [place] LANCETS) 00 Medical Misc Branch Lancets Yes Use as [facility] (ONE TOUCH 9-05 directed ity o f ULTRASOFT 00:00: [place] LANCETS) 00 Medical Misc Branch Lancets Yes Use as [facility] (ONE TOUCH 9-05 directed ity o f ULTRASOFT 00:00: [place] LANCETS) 00 Medical Misc Branch Lancets 0 Yes Use as [facility] (ONE TOUCH 9-05 directed ity o f ULTRASOFT 00:00: [place] LANCETS) 00 Medical Misc [facility] Lancets 0 Yes Use as [facility] (ONE TOUCH 9-05 directed ity o f ULTRASOFT 00:00: [place] LANCETS) 00 [facility] Misc Branch Immunizations Ordered Filled Date Status Comments Source Immunization Name Immunization Name Influenza Virus 2023-01-27 Completed [facility] [place] [facility] 65+ Influenza Virus 2023-01-27 Completed [facility] 00:00:00 [place] [facility] 65+ Influenza Virus 2023-01-27 Completed [facility] Vaccine,quad 00:00:00 [place] [facility] 65+ Influenza Virus 2023-01-27 Completed [facility] Vaccine,quad 00:00:00 [place] [facility] 65+ Influenza Virus 2023-01-27 Completed [facility] Vaccine,quad 00:00:00 [place] [facility] 65+ Influenza Virus 2023-01-27 Completed [facility] Vaccine,quad 00:00:00 [place] [facility] 65+ Influenza Virus 2023-01-27 Completed [facility] Vaccine,quad 00:00:00 [place] [facility] 65+ Influenza Virus 2023-01-27 Completed [facility] Vaccine,quad 00:00:00 [place] [facility] 65+ Influenza Virus 2023-01-27 Completed [facility] Vaccine,quad 00:00:00 [place] [facility] 65+ Influenza Virus 2023-01-27 Completed [facility] Vaccine,quad 00:00:00 [place] [facility] 65+ Influenza Virus 2023-01-27 Completed [facility] [place] [facility] 65+ Influenza Virus 2023-01-27 Completed [facility] 00:00:00 [place] [facility] 65+ Influenza Virus 2023-01-27 Completed [facility] 00:00:00 [place] [facility] 65+ Influenza Virus 2023-01-27 Completed [facility] 00:00:00 [place] [facility] 65+ Influenza Virus 2023-01-27 Completed [facility],quad 00:00:00 [place] [facility] 65+ Influenza Virus 2023-01-27 Completed [facility],quad 00:00:00 [place] [facility] 65+ Influenza Virus 2023-01-27 Completed [facility],quad 00:00:00 [place] [facility] 65+ Influenza Virus 2023-01-27 Completed [facility],quad 00:00:00 [place] [facility] 65+ Influenza Virus 2023-01-27 Completed [facility],quad 00:00:00 [place] [facility] 65+ Influenza Virus 2023-01-27 Completed [facility],quad 00:00:00 [place] [facility] 65+ Influenza Virus 2023-01-27 Completed [facility] Vacc[facility],quad 00:00:00 [place] [facility] 65+ Influenza Virus 2023-01-27 Completed [facility] Vaccine,quad 00:00:00 [place] [facility] 65+ Influenza Virus 2023-01-27 Completed [facility],quad 00:00:00 [place] [facility] 65+ Influenza Virus 2023-01-27 Completed [facility] Vacc[facility],quad 00:00:00 [place] [facility] 65+ Influenza Virus 2023-01-27 Completed [facility],quad 00:00:00 [place] [facility] 65+ Influenza Virus 2023-01-27 Completed [facility],quad 00:00:00 [place] [facility] 65+ Influenza Virus 2023-01-27 Completed [facility]ine,quad 00:00:00 [place] [facility] 65+ Influenza Virus 2023-01-27 Completed [facility],quad 00:00:00 [place] [facility] 65+ Influenza Virus 2023-01-27 Completed [facility] Vaccine,quad 00:00:00 [place] [facility] 65+ Influenza Virus 2023-01-27 Completed [facility],quad 00:00:00 [place] [facility] 65+ Influenza Virus 2023-01-27 Completed [facility] Vacc[facility],quad 00:00:00 [place] [facility] 65+ Influenza Virus 2023-01-27 Completed [facility] Vaccine,quad 00:00:00 [place] [facility] 65+ Influenza Virus 2023-01-27 Completed [facility],quad 00:00:00 [place] [facility] 65+ Influenza Virus 2023-01-27 Completed [facility],quad 00:00:00 [place] [facility] 65+ Influenza Virus 2023-01-27 Completed [facility],quad 00:00:00 [place] [facility] 65+ Influenza Virus 2023-01-27 Completed [facility],quad 00:00:00 [place] [facility] 65+ Influenza Virus 2023-01-27 Completed [facility] Vaccine,quad 00:00:00 [place] [facility] 65+ Influenza Virus 2023-01-27 Completed [facility],quad 00:00:00 [place] [facility] 65+ Influenza Virus 2023-01-27 Completed [facility],quad 00:00:00 [place] [facility] 65+ Influenza Virus 2023-01-27 Completed [facility],quad 00:00:00 [place] [facility] 65+ Influenza Virus 2023-01-27 Completed [facility],quad 00:00:00 [place] [facility] 65+ Influenza Virus 2023-01-27 Completed [facility],quad 00:00:00 [place] [facility] 65+ Influenza Virus 2023-01-27 Completed [facility],quad 00:00:00 [place] [facility] 65+ Influenza Virus 2023-01-27 Completed [facility],quad 00:00:00 [place] [facility] 65+ Influenza Virus 2023-01-27 Completed [facility],quad 00:00:00 [place] [facility] 65+ Influenza Virus 2023-01-27 Completed [facility],quad 00:00:00 [place] [facility] 65+ Influenza Virus 2023-01-27 Completed [facility],quad 00:00:00 [place] [facility] 65+ Influenza Virus 2023-01-27 Completed [facility],quad 00:00:00 [place] [facility] 65+ Influenza Virus 2023-01-27 Completed [facility],quad 00:00:00 [place] [facility] 65+ Influenza Virus 2023-01-27 Completed [facility] 00:00:00 [place] [facility] 65+ Influenza Virus 2023-01-27 Completed [facility],quad 00:00:00 [place] [facility] 65+ Influenza Virus 2023-01-27 Completed [facility],quad 00:00:00 [place] [facility] 65+ Influenza Virus 2023-01-27 Completed [facility] Vaccine,quad 00:00:00 [place] [facility] 65+ Influenza Virus 2023-01-27 Completed [facility] Vaccine,quad 00:00:00 [place] [facility] 65+ Influenza Virus 2023-01-27 Completed [facility],quad 00:00:00 [place] [facility] 65+ Influenza Virus 2023-01-27 Completed [facility],quad 00:00:00 [place] [facility] 65+ Influenza Virus 2023-01-27 Completed [facility],quad 00:00:00 [place] [facility] 65+ Influenza Virus 2023-01-27 Completed [facility],quad 00:00:00 [place] [facility] 65+ Influenza Virus 2023-01-27 Completed [facility],quad 00:00:00 [place] [facility] 65+ Influenza Virus 2023-01-27 Completed [facility],quad 00:00:00 [place] [facility] 65+ Influenza Virus 2023-01-27 Completed [facility] 00:00:00 [place] [facility] 65+ Influenza Virus 2023-01-27 Completed [facility] 00:00:00 [place] [facility] 65+ Influenza Virus 2023-01-27 Completed [facility] 00:00:00 [place] [facility] 65+ Influenza Virus 2023-01-27 Completed [facility],quad 00:00:00 [place] [facility] 65+ Influenza Virus 2023-01-27 Completed [facility],quad 00:00:00 [place] [facility] 65+ Influenza Virus 2023-01-27 Completed [facility],quad 00:00:00 [place] [facility] 65+ Influenza Virus 2023-01-27 Completed [facility],quad 00:00:00 [place] [facility] 65+ Influenza Virus 2023-01-27 Completed [facility] Vacc[facility],quad 00:00:00 [place] [facility] 65+ Influenza Virus 2023-01-27 Completed [facility]ine,quad 00:00:00 [place] [facility] 65+ Influenza Virus 2023-01-27 Completed [facility],quad 00:00:00 [place] [facility] 65+ Influenza Virus 2023-01-27 Completed [facility],quad 00:00:00 [place] [facility] 65+ Influenza Virus 2023-01-27 Completed [facility] 00:00:00 [place] [facility] 65+ Influenza Virus 2023-01-27 Completed [facility],quad 00:00:00 [place] [facility] 65+ (FLUAD) Influenza Virus 2023-01-27 Completed [facility] 00:00:00 [place] [facility] 65+ (FLUAD) Influenza Virus 2023-01-27 Completed [facility] 00:00:00 [place] [facility] 65+ (FLUAD) Influenza Virus 2021-12-31 Completed [facility] ID 00:00:00 [place] [facility] 18-64 Y[facility] Influenza Virus 2021-12-31 Completed [facility] ID 00:00:00 [place] [facility] 18-64 Y[facility] Influenza Virus 2021-12-31 Completed [facility] ID 00:00:00 [place] [facility] 18-64 Y[facility] Influenza Virus 2021-12-31 Completed [facility] ID 00:00:00 [place] [facility] 18-64 Y[facility] Influenza Virus 2021-12-31 Completed [facility] ID 00:00:00 [place] [facility] 18-64 Y[facility] Influenza Virus 2021-12-31 Completed [facility] ID 00:00:00 [place] [facility] 18-64 Y[facility] Influenza Virus 2021-12-31 Completed [facility] ID 00:00:00 [place] [facility] 18-64 Y[facility] Influenza Virus 2021-12-31 Completed [facility] ID 00:00:00 [place] [facility] 18-64 Y[facility] Influenza Virus 2021-12-31 Completed [facility] ID 00:00:00 [place] [facility] 18-64 Y[facility] Influenza Virus 2021-12-31 Completed [facility] ID 00:00:00 [place] [facility] 18-64 Y[facility] Influenza Virus 2021-12-31 Completed [facility] ID 00:00:00 [place] [facility] 18-64 Y[facility] Influenza Virus 2021-12-31 Completed [facility] ID 00:00:00 [place] [facility] 18-64 Y[facility] Influenza Virus 2021-12-31 Completed [facility]ine [facility] ID 00:00:00 [place] [facility] 18-64 Y[facility] Influenza Virus 2021-12-31 Completed [facility] ID 00:00:00 [facility] ical 18-64 YRS Branch Influenza Virus 2021-12-31 Completed [facility]ine [facility] ID 00:00:00 [facility] ical 18-64 YRS Branch Influenza Virus 2021-12-31 Completed [facility] Vaccine [facility] ID 00:00:00 [facility] ical 18-64 YRS Branch Influenza Virus 2021-12-31 Completed [facility]ine [facility] ID 00:00:00 [facility] ical 18-64 YRS Branch Influenza Virus 2021-12-31 Completed [facility] Vaccine [facility] ID 00:00:00 [facility] ical 18-64 YRS Branch Influenza Virus 2021-12-31 Completed [facility] Vaccine [facility] ID 00:00:00 [facility] ical 18-64 YRS Branch Influenza Virus 2021-12-31 Completed [facility] Vaccine [facility] ID 00:00:00 [facility] ical 18-64 YRS Branch Influenza Virus 2021-12-31 Completed [facility]ine [facility] ID 00:00:00 [place] [facility] 18-64 Y[facility] Influenza Virus 2021-12-31 Completed [facility]ine [facility] ID 00:00:00 [place] [facility] 18-64 Y[facility] Influenza Virus 2021-12-31 Completed [facility] Vaccine [facility] ID 00:00:00 [place] [facility] 18-64 YRS [facility] Influenza Virus 2021-12-31 Completed [facility] Vaccine [facility] ID 00:00:00 [facility] ical 18-64 YRS Branch Influenza Virus 2021-12-31 Completed [facility] Vaccine [facility] ID 00:00:00 [place] [facility] 18-64 YRS [facility] Influenza Virus 2021-12-31 Completed [facility] Vaccine [facility] ID 00:00:00 [place] [facility] 18-64 YRS [facility] Influenza Virus 2021-12-31 Completed [facility]ine [facility] ID 00:00:00 [place] [facility] 18-64 Y[facility] Influenza Virus 2021-12-31 Completed [facility]ine [facility] ID 00:00:00 [place] [facility] 18-64 YRS [facility] Influenza Virus 2021-12-31 Completed [facility] Vaccine [facility] ID 00:00:00 [place] [facility] 18-64 YRS [facility] Influenza Virus 2021-12-31 Completed [facility] Vaccine [facility] ID 00:00:00 [place] [facility] 18-64 YRS [facility] Influenza Virus 2021-12-31 Completed [facility]ine [facility] ID 00:00:00 [place] [facility] 18-64 YRS [facility] Influenza Virus 2021-12-31 Completed [facility] Vaccine [facility] ID 00:00:00 [place] [facility] 18-64 YRS [facility] Influenza Virus 2021-12-31 Completed [facility] Vaccine [facility] ID 00:00:00 [place] [facility] 18-64 YRS [facility] Influenza Virus 2021-12-31 Completed [facility] Vaccine [facility] ID 00:00:00 [place] [facility] 18-64 YRS [facility] Influenza Virus 2021-12-31 Completed [facility]ine [facility] ID 00:00:00 [place] [facility] 18-64 YRS [facility] Influenza Virus 2021-12-31 Completed [facility] Vaccine [facility] ID 00:00:00 [place] [facility] 18-64 YRS [facility] Influenza Virus 2021-12-31 Completed [facility]ine [facility] ID 00:00:00 [place] [facility] 18-64 Y[facility] Influenza Virus 2021-12-31 Completed [facility] ID 00:00:00 [place] [facility] 18-64 YRS [facility] Influenza Virus 2021-12-31 Completed [facility] Vaccine [facility] ID 00:00:00 [place] [facility] 18-64 YRS [facility] Influenza Virus 2021-12-31 Completed [facility]ine [facility] ID 00:00:00 [place] [facility] 18-64 YRS [facility] Influenza Virus 2021-12-31 Completed [facility]ine [facility] ID 00:00:00 [place] [facility] 18-64 YRS [facility] Influenza Virus 2021-12-31 Completed [facility] Vaccine [facility] ID 00:00:00 [place] [facility] 18-64 YRS [facility] Influenza Virus 2021-12-31 Completed [facility] Vaccine [facility] ID 00:00:00 [place] [facility] 18-64 YRS [facility] Influenza Virus 2021-12-31 Completed [facility]ine [facility] ID 00:00:00 [place] [facility] 18-64 YRS [facility] Influenza Virus 2021-12-31 Completed [facility]ine [facility] ID 00:00:00 [place] [facility] 18-64 YRS [facility] Influenza Virus 2021-12-31 Completed [facility] Vaccine [facility] ID 00:00:00 [place] [facility] 18-64 YRS Branch Influenza Virus 2021-12-31 Completed [facility] Vaccine [facility] ID 00:00:00 [place] [facility] 18-64 YRS [facility] Influenza Virus 2021-12-31 Completed [facility] Vaccine [facility] ID 00:00:00 [place] [facility] 18-64 YRS [facility] Influenza Virus 2021-12-31 Completed [facility] Vaccine [facility] ID 00:00:00 [place] [facility] 18-64 YRS [facility] Influenza Virus 2021-12-31 Completed [facility]ine [facility] ID 00:00:00 [place] [facility] 18-64 YRS [facility] Influenza Virus 2021-12-31 Completed [facility]ine [facility] ID 00:00:00 [place] [facility] 18-64 YRS [facility] Influenza Virus 2021-12-31 Completed [facility] ID 00:00:00 [place] [facility] 18-64 YRS [facility] Influenza Virus 2021-12-31 Completed [facility] Vaccine [facility] ID 00:00:00 [place] [facility] 18-64 YRS [facility] Influenza Virus 2021-12-31 Completed [facility] Vaccine [facility] ID 00:00:00 [place] [facility] 18-64 YRS [facility] Influenza Virus 2021-12-31 Completed [facility] Vaccine [facility] ID 00:00:00 [place] [facility] 18-64 YRS [facility] Influenza Virus 2021-12-31 Completed [facility]ine [facility] ID 00:00:00 [place] [facility] 18-64 YRS [facility] Influenza Virus 2021-12-31 Completed [facility] Vaccine [facility] ID 00:00:00 [place] [facility] 18-64 YRS [facility] Influenza Virus 2021-12-31 Completed [facility]ine [facility] ID 00:00:00 [place] [facility] 18-64 YRS [facility] Influenza Virus 2021-12-31 Completed [facility] Vaccine [facility] ID 00:00:00 [place] [facility] 18-64 YRS [facility] Influenza Virus 2021-12-31 Completed [facility]ine [facility] ID 00:00:00 [place] [facility] 18-64 YRS [facility] Influenza Virus 2021-12-31 Completed [facility] Vaccine [facility] ID 00:00:00 [place] [facility] 18-64 YRS [facility] Influenza Virus 2021-12-31 Completed [facility] Vaccine [facility] ID 00:00:00 [place] [facility] 18-64 YRS [facility] Influenza Virus 2021-12-31 Completed [facility] Vaccine [facility] ID 00:00:00 [place] [facility] 18-64 YRS Branch Influenza Virus 2021-12-31 Completed [facility] Vaccine [facility] ID 00:00:00 [facility] ical 18-64 YRS Branch Influenza Virus 2021-12-31 Completed [facility] Vaccine [facility] ID 00:00:00 [facility] ical 18-64 YRS Branch Influenza Virus 2021-12-31 Completed [facility] Vaccine [facility] ID 00:00:00 [facility] ical 18-64 YRS Branch Influenza Virus 2021-12-31 Completed [facility] Vaccine [facility] ID 00:00:00 [facility] ical 18-64 YRS Branch Influenza Virus 2021-12-31 Completed [facility] Vaccine Quad ID 00:00:00 [facility] ical 18-64 YRS Branch Influenza Virus 2021-12-31 Completed [facility] Vaccine Quad ID 00:00:00 [facility] ical 18-64 YRS Branch Influenza Virus 2021-12-31 Completed [facility] Vaccine [facility] ID 00:00:00 [facility] ical 18-64 YRS Branch Influenza Virus 2021-12-31 Completed [facility] Vaccine [facility] ID 00:00:00 [place] [facility] 18-64 Y[facility] Influenza Virus 2021-12-31 Completed [facility] Vaccine [facility] ID 00:00:00 [place] [facility] 18-64 YRS Branch Influenza Virus 2021-12-31 Completed [facility] Vaccine [facility] ID 00:00:00 [place] [facility] 18-64 YRS Branch Influenza Virus 2021-12-31 Completed [facility] Vaccine [facility] ID 00:00:00 [facility] ical 18-64 YRS Branch Influenza Virus 2021-12-31 Completed [facility] Vaccine [facility] ID 00:00:00 [place] [facility] 18-64 Y[facility] Influenza Virus 2021-12-31 Completed [facility] Vaccine [facility] ID 00:00:00 [place] [facility] 18-64 YRS Branch Influenza Virus 2021-12-31 Completed [facility] Vaccine [facility] ID 00:00:00 [place] [facility] 18-64 YRS Branch Influenza Virus 2021-12-31 Completed [facility] Vaccine [facility] ID 00:00:00 [place] [facility] 18-64 YRS Branch Influenza Virus 2021-12-31 Completed [facility] Vaccine [facility] ID 00:00:00 [place] [facility] 18-64 YRS Branch Influenza Virus 2021-12-31 Completed [facility] Vaccine [facility] ID 00:00:00 [place] [facility] 18-64 YRS Branch Influenza Virus 2021-12-31 Completed [facility] Vaccine [facility] ID 00:00:00 [place] [facility] 18-64 YRS Branch Influenza Virus 2021-12-31 Completed [facility] Vaccine [facility] ID 00:00:00 [place] [facility] 18-64 YRS Branch Influenza Virus 2021-12-31 Completed [facility] Vaccine [facility] ID 00:00:00 [place] [facility] 18-64 YRS Branch Influenza Virus 2021-12-31 Completed [facility] Vaccine Quad ID 00:00:00 [place] [facility] 18-64 YRS Branch Influenza Virus 2021-12-31 Completed [facility] Vaccine [facility] ID 00:00:00 [place] [facility] 18-64 YRS Branch Influenza Virus 2021-12-31 Completed [facility] Vaccine [facility] ID 00:00:00 [place] [facility] 18-64 YRS Branch Influenza Virus 2021-12-31 Completed [facility] Vaccine Quad ID 00:00:00 [place] [facility] 18-64 YRS Branch Influenza Virus 2021-12-31 Completed [facility] Vaccine [facility] ID 00:00:00 [place] [facility] 18-64 YRS Branch Influenza Virus 2021-12-31 Completed [facility] Vaccine [facility] ID 00:00:00 [place] [facility] 18-64 YRS Branch Influenza Virus 2021-12-31 Completed [facility] Vaccine [facility] ID 00:00:00 [place] [facility] 18-64 YRS Branch Influenza Virus 2021-12-31 Completed [facility] Vaccine [facility] ID 00:00:00 [place] [facility] 18-64 YRS Branch Influenza Virus 2021-12-31 Completed [facility] Vaccine Quad ID 00:00:00 [place] [facility] 18-64 YRS Branch Influenza Virus 2021-12-31 Completed [facility] Vaccine [facility] ID 00:00:00 [place] [facility] 18-64 YRS Branch Influenza Virus 2021-12-31 Completed [facility] Vaccine Quad ID 00:00:00 [place] [facility] 18-64 YRS Branch Influenza Virus 2021-12-31 Completed [facility] Vaccine Quad ID 00:00:00 [place] [facility] 18-64 YRS Branch Influenza Virus 2021-12-31 Completed [facility] Vaccine [facility] ID 00:00:00 [place] [facility] 18-64 YRS Branch Influenza Virus 2021-12-31 Completed [facility] Vaccine [facility] ID 00:00:00 [place] [facility] 18-64 YRS Branch Influenza Virus 2021-12-31 Completed [facility] Vaccine [facility] ID 00:00:00 [place] [facility] 18-64 YRS Branch Influenza Virus 2021-12-31 Completed [facility] Vaccine [facility] ID 00:00:00 [place] [facility] 18-64 YRS Branch Influenza Virus 2021-12-31 Completed [facility] Vaccine [facility] ID 00:00:00 [place] [facility] 18-64 YRS Branch Influenza Virus 2021-12-31 Completed [facility] Vaccine [facility] ID 00:00:00 [place] [facility] 18-64 YRS Branch Influenza Virus 2021-12-31 Completed [facility] Vaccine Quad ID 00:00:00 [place] [facility] 18-64 YRS Branch Influenza Virus 2021-12-31 Completed [facility] Vaccine [facility] ID 00:00:00 [place] [facility] 18-64 YRS Branch Influenza Virus 2021-12-31 Completed [facility] Vaccine Quad ID 00:00:00 [place] [facility] 18-64 YRS Branch Influenza Virus 2021-12-31 Completed [facility] Vaccine Quad ID 00:00:00 [place] [facility] 18-64 YRS Branch Influenza Virus 2021-12-31 Completed [facility] Vaccine [facility] ID 00:00:00 [place] [facility] 18-64 YRS Branch Influenza Virus 2021-12-31 Completed [facility] Vaccine [facility] ID 00:00:00 [place] [facility] 18-64 YRS Branch Influenza Virus 2021-12-31 Completed [facility] Vaccine [facility] ID 00:00:00 [place] [facility] 18-64 YRS Branch Pneumococcal 2021-12-24 Completed [facility] f Polysaccharide, 00:00:00 [place] [facility] PPSV23 (PNEUMOVAX) Branch Pneumococcal 2021-12-24 Completed [facility] f Polysaccharide, 00:00:00 [place] [facility] PPSV23 (PNEUMOVAX) Branch Pneumococcal 2021-12-24 Completed [facility] f Polysaccharide, 00:00:00 [place] [facility] PPSV23 (PNEUMOVAX) Branch Pneumococcal 2021-12-24 Completed [facility] f Polysaccharide, 00:00:00 [place] [facility] PPSV23 (PNEUMOVAX) Branch Pneumococcal 2021-12-24 Completed [facility] f Polysaccharide, 00:00:00 [place] [facility] PPSV23 (PNEUMOVAX) Branch Pneumococcal 2021-12-24 Completed [facility] f Polysaccharide, 00:00:00 [place] [facility] PPSV23 (PNEUMOVAX) Branch Pneumococcal 2021-12-24 Completed [facility] f Polysaccharide, 00:00:00 [place] [facility] PPSV23 (PNEUMOVAX) Branch Pneumococcal 2021-12-24 Completed [facility] f Polysaccharide, 00:00:00 [place] [facility] PPSV23 (PNEUMOVAX) Branch Pneumococcal 2021-12-24 Completed [facility] f Polysaccharide, 00:00:00 [place] [facility] PPSV23 (PNEUMOVAX) Branch Pneumococcal 2021-12-24 Completed [facility] f Polysaccharide, 00:00:00 [place] [facility] PPSV23 (PNEUMOVAX) Branch Pneumococcal 2021-12-24 Completed [facility] f Polysaccharide, 00:00:00 [place] [facility] PPSV23 (PNEUMOVAX) Branch Pneumococcal 2021-12-24 Completed [facility] f Polysaccharide, 00:00:00 [place] [facility] PPSV23 (PNEUMOVAX) Branch Pneumococcal 2021-12-24 Completed [facility] f Polysaccharide, 00:00:00 [place] [facility] PPSV23 (PNEUMOVAX) Branch Pneumococcal 2021-12-24 Completed [facility] f Polysaccharide, 00:00:00 [place] [facility] PPSV23 (PNEUMOVAX) Branch Pneumococcal 2021-12-24 Completed [facility] f Polysaccharide, 00:00:00 [place] [facility] PPSV23 (PNEUMOVAX) Branch Pneumococcal 2021-12-24 Completed [facility] f Polysaccharide, 00:00:00 [place] [facility] PPSV23 (PNEUMOVAX) Branch Pneumococcal 2021-12-24 Completed [facility] f Polysaccharide, 00:00:00 [place] [facility] PPSV23 (PNEUMOVAX) Branch Pneumococcal 2021-12-24 Completed [facility] f Polysaccharide, 00:00:00 [place] [facility] PPSV23 (PNEUMOVAX) Branch Pneumococcal 2021-12-24 Completed [facility] o f Polysaccharide, 00:00:00 [place] [facility] PPSV23 (PNEUMOVAX) Branch Pneumococcal 2021-12-24 Completed [facility] f Polysaccharide, 00:00:00 [place] [facility] PPSV23 (PNEUMOVAX) Branch Pneumococcal 2021-12-24 Completed [facility] f Polysaccharide, 00:00:00 [place] [facility] PPSV23 (PNEUMOVAX) Branch Pneumococcal 2021-12-24 Completed [facility] o f Polysaccharide, 00:00:00 [place] [facility] PPSV23 (PNEUMOVAX) Branch Pneumococcal 2021-12-24 Completed [facility] f Polysaccharide, 00:00:00 [place] [facility] PPSV23 (PNEUMOVAX) Branch Pneumococcal 2021-12-24 Completed [facility] o f Polysaccharide, 00:00:00 [place] [facility] PPSV23 (PNEUMOVAX) Branch Pneumococcal 2021-12-24 Completed [facility] o f Polysaccharide, 00:00:00 [place] [facility] PPSV23 (PNEUMOVAX) Branch Pneumococcal 2021-12-24 Completed [facility] f Polysaccharide, 00:00:00 [place] [facility] PPSV23 (PNEUMOVAX) Branch Pneumococcal 2021-12-24 Completed [facility] o f Polysaccharide, 00:00:00 [place] [facility] PPSV23 (PNEUMOVAX) Branch Pneumococcal 2021-12-24 Completed [facility] o f Polysaccharide, 00:00:00 [place] [facility] PPSV23 (PNEUMOVAX) Branch Pneumococcal 2021-12-24 Completed [facility] o f Polysaccharide, 00:00:00 [place] [facility] PPSV23 (PNEUMOVAX) Branch Pneumococcal 2021-12-24 Completed [facility] o f Polysaccharide, 00:00:00 [place] [facility] PPSV23 (PNEUMOVAX) Branch Pneumococcal 2021-12-24 Completed [facility] o f Polysaccharide, 00:00:00 [place] [facility] PPSV23 (PNEUMOVAX) Branch Pneumococcal 2021-12-24 Completed [facility] o f Polysaccharide, 00:00:00 [place] [facility] PPSV23 (PNEUMOVAX) Branch Pneumococcal 2021-12-24 Completed [facility] o f Polysaccharide, 00:00:00 [place] [facility] PPSV23 (PNEUMOVAX) Branch Pneumococcal 2021-12-24 Completed [facility] f Polysaccharide, 00:00:00 [place] [facility] PPSV23 (PNEUMOVAX) Branch Pneumococcal 2021-12-24 Completed [facility], 00:[facility]:00 [place] [facility] PPSV23 (PNEUMOVAX) [facility] Pneumococcal 2021-12-24 Completed [facility], 00:00:00 [place] [facility] PPSV23 (PNEUMOVAX) [facility] Pneumococcal 2021-12-24 Completed [facility], 00:00:00 [place] [facility] PPSV23 (PNEUMOVAX) Branch Pneumococcal 2021-12-24 Completed [facility] Pol[facility], 00:00:00 [place] [facility] PPSV23 (PNEUMOVAX) [facility] Pneumococcal 2021-12-24 Completed [facility] Pol[facility], 00:00:00 [place] [facility] PPSV23 (PNEUMOVAX) [facility] Pneumococcal 2021-12-24 Completed [facility], 00:00:00 [place] [facility] PPSV23 (PNEUMOVAX) Branch Pneumococcal 2021-12-24 Completed [facility] Pol[facility], 00:00:00 [place] [facility] PPSV23 (PNEUMOVAX) Branch Pneumococcal 2021-12-24 Completed [facility] Pol[facility], 00:00:00 [place] [facility] PPSV23 (PNEUMOVAX) Branch Pneumococcal 2021-12-24 Completed [facility] Pol[facility], 00:00:00 [place] [facility] PPSV23 (PNEUMOVAX) Branch Pneumococcal 2021-12-24 Completed [facility] Pol[facility], 00:00:00 [place] [facility] PPSV23 (PNEUMOVAX) Branch Pneumococcal 2021-12-24 Completed [facility] Pol[facility]accharide, 00:00:00 [place] [facility] PPSV23 (PNEUMOVAX) Branch Pneumococcal 2021-12-24 Completed [facility] Pol[facility]accharide, 00:00:00 [place] [facility] PPSV23 (PNEUMOVAX) Branch Pneumococcal 2021-12-24 Completed [facility] Pol[facility]accharide, 00:00:00 [place] [facility] PPSV23 (PNEUMOVAX) Branch Pneumococcal 2021-12-24 Completed [facility] Pol[facility]accharide, 00:00:00 [place] [facility] PPSV23 (PNEUMOVAX) Branch Pneumococcal 2021-12-24 Completed [facility] Pol[facility]accharide, 00:00:00 [place] [facility] PPSV23 (PNEUMOVAX) Branch Pneumococcal 2021-12-24 Completed [facility] Pol[facility]accharide, 00:00:00 [place] [facility] PPSV23 (PNEUMOVAX) Branch Pneumococcal 2021-12-24 Completed [facility] Pol[facility]accharide, 00:00:00 [place] [facility] PPSV23 (PNEUMOVAX) Branch Pneumococcal 2021-12-24 Completed [facility] Pol[facility]accharide, 00:00:00 [place] [facility] PPSV23 (PNEUMOVAX) Branch Pneumococcal 2021-12-24 Completed [facility] Pol[facility]accharide, 00:00:00 [place] [facility] PPSV23 (PNEUMOVAX) Branch Pneumococcal 2021-12-24 Completed [facility] Pol[facility]accharide, 00:00:00 [place] [facility] PPSV23 (PNEUMOVAX) Branch Pneumococcal 2021-12-24 Completed [facility] Pol[facility]accharide, 00:00:00 [place] [facility] PPSV23 (PNEUMOVAX) Branch Pneumococcal 2021-12-24 Completed [facility] Pol[facility]accharide, 00:00:00 [place] [facility] PPSV23 (PNEUMOVAX) Branch Pneumococcal 2021-12-24 Completed [facility] Pol[facility]accharide, 00:00:00 [place] [facility] PPSV23 (PNEUMOVAX) Branch Pneumococcal 2021-12-24 Completed [facility] Pol[facility]accharide, 00:00:00 [place] [facility] PPSV23 (PNEUMOVAX) Branch Pneumococcal 2021-12-24 Completed [facility] Pol[facility]accharide, 00:00:00 [place] [facility] PPSV23 (PNEUMOVAX) Branch Pneumococcal 2021-12-24 Completed [facility] Pol[facility]accharide, 00:00:00 [place] [facility] PPSV23 (PNEUMOVAX) Branch Pneumococcal 2021-12-24 Completed [facility] Pol[facility]accharide, 00:00:00 [place] [facility] PPSV23 (PNEUMOVAX) Branch Pneumococcal 2021-12-24 Completed [facility] Pol[facility]accharide, 00:00:00 [place] [facility] PPSV23 (PNEUMOVAX) Branch Pneumococcal 2021-12-24 Completed [facility] Pol[facility]accharide, 00:00:00 [place] [facility] PPSV23 (PNEUMOVAX) Branch Pneumococcal 2021-12-24 Completed [facility] Pol[facility]accharide, 00:00:00 [place] [facility] PPSV23 (PNEUMOVAX) Branch Pneumococcal 2021-12-24 Completed [facility] Pol[facility]accharide, 00:00:00 [place] [facility] PPSV23 (PNEUMOVAX) Branch Pneumococcal 2021-12-24 Completed [facility] Pol[facility]accharide, 00:00:00 [place] [facility] PPSV23 (PNEUMOVAX) Branch Pneumococcal 2021-12-24 Completed [facility] Pol[facility]accharide, 00:00:00 [place] [facility] PPSV23 (PNEUMOVAX) Branch Pneumococcal 2021-12-24 Completed [facility] Pol[facility]accharide, 00:00:00 [place] [facility] PPSV23 (PNEUMOVAX) Branch Pneumococcal 2021-12-24 Completed [facility] Pol[facility]accharide, 00:00:00 [place] [facility] PPSV23 (PNEUMOVAX) Branch Pneumococcal 2021-12-24 Completed [facility] Pol[facility]accharide, 00:00:00 [place] [facility] PPSV23 (PNEUMOVAX) Branch Pneumococcal 2021-12-24 Completed [facility] Pol[facility]accharide, 00:00:00 [place] [facility] PPSV23 (PNEUMOVAX) Branch Pneumococcal 2021-12-24 Completed [facility] Pol[facility]accharide, 00:00:00 [place] [facility] PPSV23 (PNEUMOVAX) Branch Pneumococcal 2021-12-24 Completed [facility] Pol[facility]accharide, 00:00:00 [place] [facility] PPSV23 (PNEUMOVAX) Branch Pneumococcal 2021-12-24 Completed [facility] Pol[facility]accharide, 00:00:00 [place] [facility] PPSV23 (PNEUMOVAX) Branch Pneumococcal 2021-12-24 Completed [facility] Pol[facility]accharide, 00:00:00 [place] [facility] PPSV23 (PNEUMOVAX) Branch Pneumococcal 2021-12-24 Completed [facility] Pol[facility]accharide, 00:00:00 [place] [facility] PPSV23 (PNEUMOVAX) Branch Pneumococcal 2021-12-24 Completed [facility] Pol[facility]accharide, 00:00:00 [place] [facility] PPSV23 (PNEUMOVAX) Branch Pneumococcal 2021-12-24 Completed [facility] Pol[facility]accharide, 00:00:00 [place] [facility] PPSV23 (PNEUMOVAX) Branch Pneumococcal 2021-12-24 Completed [facility] Pol[facility]accharide, 00:00:00 [place] [facility] PPSV23 (PNEUMOVAX) Branch Pneumococcal 2021-12-24 Completed [facility] Pol[facility]accharide, 00:00:00 [place] [facility] PPSV23 (PNEUMOVAX) Branch Pneumococcal 2021-12-24 Completed [facility] Pol[facility]accharide, 00:00:00 [place] [facility] PPSV23 (PNEUMOVAX) Branch Pneumococcal 2021-12-24 Completed [facility] Pol[facility]accharide, 00:00:00 [place] [facility] PPSV23 (PNEUMOVAX) Branch Pneumococcal 2021-12-24 Completed [facility] Pol[facility]accharide, 00:00:00 [place] [facility] PPSV23 (PNEUMOVAX) Branch Pneumococcal 2021-12-24 Completed [facility] Pol[facility]accharide, 00:00:00 [place] [facility] PPSV23 (PNEUMOVAX) Branch Pneumococcal 2021-12-24 Completed [facility] Pol[facility]accharide, 00:00:00 [place] [facility] PPSV23 (PNEUMOVAX) Branch Pneumococcal 2021-12-24 Completed [facility] Pol[facility]accharide, 00:00:00 [place] [facility] PPSV23 (PNEUMOVAX) Branch Pneumococcal 2021-12-24 Completed [facility] Pol[facility]accharide, 00:00:00 [place] [facility] PPSV23 (PNEUMOVAX) Branch Pneumococcal 2021-12-24 Completed [facility] Pol[facility]accharide, 00:00:00 [place] [facility] PPSV23 (PNEUMOVAX) Branch Pneumococcal 2021-12-24 Completed [facility] Pol[facility]accharide, 00:00:00 [place] [facility] PPSV23 (PNEUMOVAX) Branch Pneumococcal 2021-12-24 Completed [facility] Pol[facility]accharide, 00:00:00 [place] [facility] PPSV23 (PNEUMOVAX) Branch Pneumococcal 2021-12-24 Completed [facility] Pol[facility]accharide, 00:00:00 [place] [facility] PPSV23 (PNEUMOVAX) Branch Pneumococcal 2021-12-24 Completed [facility] Pol[facility]accharide, 00:00:00 [place] [facility] PPSV23 (PNEUMOVAX) Branch Pneumococcal 2021-12-24 Completed [facility] Pol[facility]accharide, 00:00:00 [place] [facility] PPSV23 (PNEUMOVAX) Branch Pneumococcal 2021-12-24 Completed [facility] Pol[facility]accharide, 00:00:00 [place] [facility] PPSV23 (PNEUMOVAX) Branch Pneumococcal 2021-12-24 Completed [facility] Pol[facility]accharide, 00:00:00 [place] [facility] PPSV23 (PNEUMOVAX) Branch Pneumococcal 2021-12-24 Completed [facility] Pol[facility]accharide, 00:00:00 [place] [facility] PPSV23 (PNEUMOVAX) Branch Pneumococcal 2021-12-24 Completed [facility] Pol[facility]accharide, 00:00:00 [place] [facility] PPSV23 (PNEUMOVAX) Branch Pneumococcal 2021-12-24 Completed [facility] Pol[facility]accharide, 00:00:00 [place] [facility] PPSV23 (PNEUMOVAX) Branch Pneumococcal 2021-12-24 Completed [facility] Pol[facility]accharide, 00:00:00 [place] [facility] PPSV23 (PNEUMOVAX) Branch Pneumococcal 2021-12-24 Completed [facility] Pol[facility]accharide, 00:00:00 [place] [facility] PPSV23 (PNEUMOVAX) Branch Pneumococcal 2021-12-24 Completed [facility] Pol[facility]accharide, 00:00:00 [place] [facility] PPSV23 (PNEUMOVAX) Branch Pneumococcal 2021-12-24 Completed [facility] Pol[facility]accharide, 00:00:00 [place] [facility] PPSV23 (PNEUMOVAX) Branch Pneumococcal 2021-12-24 Completed [facility] Pol[facility]accharide, 00:00:00 [place] [facility] PPSV23 (PNEUMOVAX) Branch Pneumococcal 2021-12-24 Completed [facility] Pol[facility]accharide, 00:00:00 [place] [facility] PPSV23 (PNEUMOVAX) Branch Pneumococcal 2021-12-24 Completed [facility] Pol[facility]accharide, 00:00:00 [place] [facility] PPSV23 (PNEUMOVAX) Branch Pneumococcal 2021-12-24 Completed [facility] Pol[facility]accharide, 00:00:00 [place] [facility] PPSV23 (PNEUMOVAX) Branch Pneumococcal 2021-12-24 Completed [facility] Pol[facility]accharide, 00:00:00 [place] [facility] PPSV23 (PNEUMOVAX) Branch Pneumococcal 2021-12-24 Completed [facility], 00:00:00 [place] [facility] PPSV23 (PNEUMOVAX) Branch SARS-COV-2 COVID-19 2021-02-09 Completed [facility] PFIZER VACCINE 00:00:00 [facility] SARS-COV-2 COVID-19 2021-02-09 Completed [facility] PFIZER VACCINE 00:00:00 [facility] SARS-COV-2 COVID-19 2021-02-09 Completed [facility] PFIZER VACCINE 00:00:00 [facility] SARS-COV-2 COVID-19 2021-02-09 Completed [facility] PFIZER VACCINE 00:00:00 [facility] SARS-COV-2 COVID-19 2021-02-09 Completed [facility] PFIZER VACCINE 00:00:00 [facility] SARS-COV-2 COVID-19 2021-02-09 Completed [facility] of PFIZER VACCINE 00:00:00 [facility] SARS-COV-2 COVID-19 2021-02-09 Completed [facility] of PFIZER VACCINE 00:00:00 [facility] SARS-COV-2 COVID-19 2021-02-09 Completed [facility] of PFIZER VACCINE 00:00:00 [facility] SARS-COV-2 COVID-19 2021-02-09 Completed [facility] PFIZER VACCINE 00:00:00 [facility] SARS-COV-2 COVID-19 2021-02-09 Completed [facility] of PFIZER VACCINE 00:00:00 [facility] SARS-COV-2 COVID-19 2021-02-09 Completed [facility] of PFIZER VACCINE 00:00:00 [facility] SARS-COV-2 COVID-19 2021-02-09 Completed [facility] of PFIZER VACCINE 00:00:00 [facility] SARS-COV-2 COVID-19 2021-02-09 Completed [facility] PFIZER VACCINE 00:00:00 [facility] SARS-COV-2 COVID-19 2021-02-09 Completed [facility] PFIZER VACCINE 00:00:00 [facility] SARS-COV-2 COVID-19 2021-02-09 Completed [facility] of PFIZER VACCINE 00:00:00 [facility] SARS-COV-2 COVID-19 2021-02-09 Completed [facility] of PFIZER VACCINE 00:00:00 [facility] SARS-COV-2 COVID-19 2021-02-09 Completed [facility] of PFIZER VACCINE 00:00:00 [facility] SARS-COV-2 COVID-19 2021-02-09 Completed [facility] of PFIZER VACCINE 00:00:00 [facility] SARS-COV-2 COVID-19 2021-02-09 Completed [facility] PFIZER VACCINE 00:00:00 [facility] SARS-COV-2 COVID-19 2021-02-09 Completed [facility] PFIZER VACCINE 00:00:00 [facility] SARS-COV-2 COVID-19 2021-02-09 Completed [facility] of PFIZER VACCINE 00:00:00 [facility] SARS-COV-2 COVID-19 2021-02-09 Completed [facility] PFIZER VACCINE 00:00:00 [facility] SARS-COV-2 COVID-19 2021-02-09 Completed [facility] PFIZER VACCINE 00:00:00 [facility] SARS-COV-2 COVID-19 2021-02-09 Completed [facility] PFIZER VACCINE 00:00:00 [facility] SARS-COV-2 COVID-19 2021-02-09 Completed [facility] PFIZER VACCINE 00:00:00 [facility] SARS-COV-2 COVID-19 2021-02-09 Completed [facility] PFIZER VACCINE 00:00:00 [facility] SARS-COV-2 COVID-19 2021-02-09 Completed [facility] PFIZER VACCINE 00:00:00 [facility] SARS-COV-2 COVID-19 2021-02-09 Completed [facility] PFIZER VACCINE 00:00:00 [facility] SARS-COV-2 COVID-19 2021-02-09 Completed [facility] PFIZER VACCINE 00:00:00 [facility] SARS-COV-2 COVID-19 2021-02-09 Completed [facility] PFIZER VACCINE 00:00:00 [facility] SARS-COV-2 COVID-19 2021-02-09 Completed [facility] PFIZER VACCINE 00:00:00 [facility] SARS-COV-2 COVID-19 2021-02-09 Completed [facility] PFIZER VACCINE 00:00:00 [facility] SARS-COV-2 COVID-19 2021-02-09 Completed [facility] PFIZER VACCINE 00:00:00 [facility] SARS-COV-2 COVID-19 2021-02-09 Completed [facility] PFIZER VACCINE 00:00:00 [facility] SARS-COV-2 COVID-19 2021-02-09 Completed [facility] PFIZER VACCINE 00:00:00 [facility] SARS-COV-2 COVID-19 2021-02-09 Completed [facility] PFIZER VACCINE 00:00:00 [facility] SARS-COV-2 COVID-19 2021-02-09 Completed [facility] PFIZER VACCINE 00:00:00 [place] [facility] SARS-COV-2 COVID-19 2021-02-09 Completed [facility] PFIZER VACCINE 00:00:00 [facility] SARS-COV-2 COVID-19 2021-02-09 Completed [facility] PFIZER VACCINE 00:00:00 [facility] SARS-COV-2 COVID-19 2021-02-09 Completed [facility] PFIZER VACCINE 00:00:00 [facility] SARS-COV-2 COVID-19 2021-02-09 Completed [facility] PFIZER VACCINE 00:00:00 [facility] SARS-COV-2 COVID-19 2021-02-09 Completed [facility] PFIZER VACCINE 00:00:00 [facility] SARS-COV-2 COVID-19 2021-02-09 Completed [facility] PFIZER VACCINE 00:00:00 [facility] SARS-COV-2 COVID-19 2021-02-09 Completed [facility] PFIZER VACCINE 00:00:00 [facility] SARS-COV-2 COVID-19 2021-02-09 Completed [facility] PFIZER VACCINE 00:00:00 [facility] SARS-COV-2 COVID-19 2021-02-09 Completed [facility] PFIZER VACCINE 00:00:00 [facility] SARS-COV-2 COVID-19 2021-02-09 Completed [facility] PFIZER VACCINE 00:00:00 [facility] SARS-COV-2 COVID-19 2021-02-09 Completed [facility] PFIZER VACCINE 00:00:00 [facility] SARS-COV-2 COVID-19 2021-02-09 Completed [facility] PFIZER VACCINE 00:00:00 [facility] SARS-COV-2 COVID-19 2021-02-09 Completed [facility] PFIZER VACCINE 00:00:00 [facility] SARS-COV-2 COVID-19 2021-02-09 Completed [facility] PFIZER VACCINE 00:00:00 [facility] SARS-COV-2 COVID-19 2021-02-09 Completed [facility] PFIZER VACCINE 00:00:00 [facility] SARS-COV-2 COVID-19 2021-02-09 Completed [facility] PFIZER VACCINE 00:00:00 [facility] SARS-COV-2 COVID-19 2021-02-09 Completed [facility] PFIZER VACCINE 00:00:00 [facility] SARS-COV-2 COVID-19 2021-02-09 Completed [facility] PFIZER VACCINE 00:00:00 [facility] SARS-COV-2 COVID-19 2021-02-09 Completed [facility] PFIZER VACCINE 00:00:00 [facility] SARS-COV-2 COVID-19 2021-02-09 Completed [facility] PFIZER VACCINE 00:00:00 [facility] SARS-COV-2 COVID-19 2021-02-09 Completed [facility] PFIZER VACCINE 00:00:00 [facility] SARS-COV-2 COVID-19 2021-02-09 Completed [facility] PFIZER VACCINE 00:00:00 [facility] SARS-COV-2 COVID-19 2021-02-09 Completed [facility] PFIZER VACCINE 00:00:00 [facility] SARS-COV-2 COVID-19 2021-02-09 Completed [facility] PFIZER VACCINE 00:00:00 [facility] SARS-COV-2 COVID-19 2021-02-09 Completed [facility] PFIZER VACCINE 00:00:00 [facility] SARS-COV-2 COVID-19 2021-02-09 Completed [facility] PFIZER VACCINE 00:00:00 [facility] SARS-COV-2 COVID-19 2021-02-09 Completed [facility] PFIZER VACCINE 00:00:00 [facility] SARS-COV-2 COVID-19 2021-02-09 Completed [facility] PFIZER VACCINE 00:00:00 [facility] SARS-COV-2 COVID-19 2021-02-09 Completed [facility] PFIZER VACCINE 00:00:00 [facility] SARS-COV-2 COVID-19 2021-02-09 Completed [facility] PFIZER VACCINE 00:00:00 [facility] SARS-COV-2 COVID-19 2021-02-09 Completed [facility] PFIZER VACCINE 00:00:00 [facility] SARS-COV-2 COVID-19 2021-02-09 Completed [facility] PFIZER VACCINE 00:00:00 [facility] SARS-COV-2 COVID-19 2021-02-09 Completed [facility] PFIZER VACCINE 00:00:00 [facility] SARS-COV-2 COVID-19 2021-02-09 Completed [facility] PFIZER VACCINE 00:00:00 [facility] SARS-COV-2 COVID-19 2021-02-09 Completed [facility] PFIZER VACCINE 00:00:00 [facility] SARS-COV-2 COVID-19 2021-02-09 Completed [facility] PFIZER VACCINE 00:00:00 [facility] SARS-COV-2 COVID-19 2021-02-09 Completed [facility] PFIZER VACCINE 00:00:00 [facility] SARS-COV-2 COVID-19 2021-02-09 Completed [facility] PFIZER VACCINE 00:00:00 [facility] SARS-COV-2 COVID-19 2021-02-09 Completed [facility] PFIZER VACCINE 00:00:00 [facility] SARS-COV-2 COVID-19 2021-02-09 Completed [facility] PFIZER VACCINE 00:00:00 [facility] SARS-COV-2 COVID-19 2021-02-09 Completed [facility] PFIZER VACCINE 00:00:00 [facility] SARS-COV-2 COVID-19 2021-02-09 Completed [facility] PFIZER VACCINE 00:00:00 [facility] SARS-COV-2 COVID-19 2021-02-09 Completed [facility] PFIZER VACCINE 00:00:00 [facility] SARS-COV-2 COVID-19 2021-02-09 Completed [facility] PFIZER VACCINE 00:00:00 [facility] SARS-COV-2 COVID-19 2021-02-09 Completed [facility] PFIZER VACCINE 00:00:00 [facility] SARS-COV-2 COVID-19 2021-02-09 Completed [facility] PFIZER VACCINE 00:00:00 [facility] SARS-COV-2 COVID-19 2021-02-09 Completed [facility] PFIZER VACCINE 00:00:00 [facility] SARS-COV-2 COVID-19 2021-02-09 Completed [facility] PFIZER VACCINE 00:00:00 [facility] SARS-COV-2 COVID-19 2021-02-09 Completed [facility] PFIZER VACCINE 00:00:00 [facility] SARS-COV-2 COVID-19 2021-02-09 Completed [facility] PFIZER VACCINE 00:00:00 [facility] SARS-COV-2 COVID-19 2021-02-09 Completed [facility] PFIZER VACCINE 00:00:00 [facility] SARS-COV-2 COVID-19 2021-02-09 Completed [facility] PFIZER VACCINE 00:00:00 [facility] SARS-COV-2 COVID-19 2021-02-09 Completed [facility] PFIZER VACCINE 00:00:00 [facility] SARS-COV-2 COVID-19 2021-02-09 Completed [facility] PFIZER VACCINE 00:00:00 [facility] SARS-COV-2 COVID-19 2021-02-09 Completed [facility] PFIZER VACCINE 00:00:00 [facility] SARS-COV-2 COVID-19 2021-02-09 Completed [facility] PFIZER VACCINE 00:00:00 [facility] SARS-COV-2 COVID-19 2021-02-09 Completed [facility] PFIZER VACCINE 00:00:00 [facility] SARS-COV-2 COVID-19 2021-02-09 Completed [facility] PFIZER VACCINE 00:00:00 [facility] SARS-COV-2 COVID-19 2021-02-09 Completed [facility] PFIZER VACCINE 00:00:00 [facility] SARS-COV-2 COVID-19 2021-02-09 Completed [facility] PFIZER VACCINE 00:00:00 [facility] SARS-COV-2 COVID-19 2021-02-09 Completed [facility] PFIZER VACCINE 00:00:00 [facility] SARS-COV-2 COVID-19 2021-02-09 Completed [facility] PFIZER VACCINE 00:00:00 [facility] SARS-COV-2 COVID-19 2021-02-09 Completed [facility] PFIZER VACCINE 00:00:00 [facility] SARS-COV-2 COVID-19 2021-02-09 Completed [facility] PFIZER VACCINE 00:00:00 [facility] SARS-COV-2 COVID-19 2021-02-09 Completed [facility] PFIZER VACCINE 00:00:00 [facility] SARS-COV-2 COVID-19 2021-02-09 Completed [facility] PFIZER VACCINE 00:00:00 [facility] SARS-COV-2 COVID-19 2021-02-09 Completed [facility] PFIZER VACCINE 00:00:00 [facility] SARS-COV-2 COVID-19 2021-02-09 Completed [facility] PFIZER VACCINE 00:00:00 [facility] SARS-COV-2 COVID-19 2021-02-09 Completed [facility] PFIZER VACCINE 00:00:00 [facility] SARS-COV-2 COVID-19 2021-02-09 Completed [facility] PFIZER VACCINE 00:00:00 [facility] SARS-COV-2 COVID-19 2021-02-09 Completed [facility] PFIZER VACCINE 00:00:00 [facility] SARS-COV-2 COVID-19 2021-01-19 Completed [facility] PFIZER VACCINE 00:00:00 [facility] SARS-COV-2 COVID-19 2021-01-19 Completed [facility] PFIZER VACCINE 00:00:00 [facility] SARS-COV-2 COVID-19 2021-01-19 Completed [facility] PFIZER VACCINE 00:00:00 [facility] SARS-COV-2 COVID-19 2021-01-19 Completed [facility] PFIZER VACCINE 00:00:00 [facility] SARS-COV-2 COVID-19 2021-01-19 Completed [facility] PFIZER VACCINE 00:00:00 [facility] SARS-COV-2 COVID-19 2021-01-19 Completed [facility] PFIZER VACCINE 00:00:00 [facility] SARS-COV-2 COVID-19 2021-01-19 Completed [facility] PFIZER VACCINE 00:00:00 [facility] SARS-COV-2 COVID-19 2021-01-19 Completed [facility] PFIZER VACCINE 00:00:00 [facility] SARS-COV-2 COVID-19 2021-01-19 Completed [facility] PFIZER VACCINE 00:00:00 [facility] SARS-COV-2 COVID-19 2021-01-19 Completed [facility] PFIZER VACCINE 00:00:00 [facility] SARS-COV-2 COVID-19 2021-01-19 Completed [facility] PFIZER VACCINE 00:00:00 [facility] SARS-COV-2 COVID-19 2021-01-19 Completed [facility] PFIZER VACCINE 00:00:00 [facility] SARS-COV-2 COVID-19 2021-01-19 Completed [facility] PFIZER VACCINE 00:00:00 [facility] SARS-COV-2 COVID-19 2021-01-19 Completed [facility] PFIZER VACCINE 00:00:00 [facility] SARS-COV-2 COVID-19 2021-01-19 Completed [facility] PFIZER VACCINE 00:00:00 [facility] SARS-COV-2 COVID-19 2021-01-19 Completed [facility] PFIZER VACCINE 00:00:00 [facility] SARS-COV-2 COVID-19 2021-01-19 Completed [facility] PFIZER VACCINE 00:00:00 [facility] SARS-COV-2 COVID-19 2021-01-19 Completed [facility] PFIZER VACCINE 00:00:00 [facility] SARS-COV-2 COVID-19 2021-01-19 Completed [facility] PFIZER VACCINE 00:00:00 [facility] SARS-COV-2 COVID-19 2021-01-19 Completed [facility] PFIZER VACCINE 00:00:00 [facility] SARS-COV-2 COVID-19 2021-01-19 Completed [facility] PFIZER VACCINE 00:00:00 [facility] SARS-COV-2 COVID-19 2021-01-19 Completed [facility] PFIZER VACCINE 00:00:00 [facility] SARS-COV-2 COVID-19 2021-01-19 Completed [facility] PFIZER VACCINE 00:00:00 [facility] SARS-COV-2 COVID-19 2021-01-19 Completed [facility] PFIZER VACCINE 00:00:00 [facility] SARS-COV-2 COVID-19 2021-01-19 Completed [facility] PFIZER VACCINE 00:00:00 [facility] SARS-COV-2 COVID-19 2021-01-19 Completed [facility] PFIZER VACCINE 00:00:00 [facility] SARS-COV-2 COVID-19 2021-01-19 Completed [facility] PFIZER VACCINE 00:00:00 [facility] SARS-COV-2 COVID-19 2021-01-19 Completed [facility] PFIZER VACCINE 00:00:00 [facility] SARS-COV-2 COVID-19 2021-01-19 Completed [facility] PFIZER VACCINE 00:00:00 [facility] SARS-COV-2 COVID-19 2021-01-19 Completed [facility] PFIZER VACCINE 00:00:00 [facility] SARS-COV-2 COVID-19 2021-01-19 Completed [facility] PFIZER VACCINE 00:00:00 [facility] SARS-COV-2 COVID-19 2021-01-19 Completed [facility] PFIZER VACCINE 00:00:00 [facility] SARS-COV-2 COVID-19 2021-01-19 Completed [facility] PFIZER VACCINE 00:00:00 [facility] SARS-COV-2 COVID-19 2021-01-19 Completed [facility] PFIZER VACCINE 00:00:00 [facility] SARS-COV-2 COVID-19 2021-01-19 Completed [facility] PFIZER VACCINE 00:00:00 [facility] SARS-COV-2 COVID-19 2021-01-19 Completed [facility] PFIZER VACCINE 00:00:00 [facility] SARS-COV-2 COVID-19 2021-01-19 Completed [facility] PFIZER VACCINE 00:00:00 [facility] SARS-COV-2 COVID-19 2021-01-19 Completed [facility] PFIZER VACCINE 00:00:00 [facility] SARS-COV-2 COVID-19 2021-01-19 Completed [facility] PFIZER VACCINE 00:00:00 [facility] SARS-COV-2 COVID-19 2021-01-19 Completed [facility] PFIZER VACCINE 00:00:00 [facility] SARS-COV-2 COVID-19 2021-01-19 Completed [facility] PFIZER VACCINE 00:00:00 [facility] SARS-COV-2 COVID-19 2021-01-19 Completed [facility] PFIZER VACCINE 00:00:00 [facility] SARS-COV-2 COVID-19 2021-01-19 Completed [facility] PFIZER VACCINE 00:00:00 [facility] SARS-COV-2 COVID-19 2021-01-19 Completed [facility] PFIZER VACCINE 00:00:00 [facility] SARS-COV-2 COVID-19 2021-01-19 Completed [facility] PFIZER VACCINE 00:00:00 [facility] SARS-COV-2 COVID-19 2021-01-19 Completed [facility] PFIZER VACCINE 00:00:00 [facility] SARS-COV-2 COVID-19 2021-01-19 Completed [facility] PFIZER VACCINE 00:00:00 [facility] SARS-COV-2 COVID-19 2021-01-19 Completed [facility] PFIZER VACCINE 00:00:00 [facility] SARS-COV-2 COVID-19 2021-01-19 Completed [facility] PFIZER VACCINE 00:00:00 [facility] SARS-COV-2 COVID-19 2021-01-19 Completed [facility] PFIZER VACCINE 00:00:00 [facility] SARS-COV-2 COVID-19 2021-01-19 Completed [facility] PFIZER VACCINE 00:00:00 [facility] SARS-COV-2 COVID-19 2021-01-19 Completed [facility] PFIZER VACCINE 00:00:00 [facility] SARS-COV-2 COVID-19 2021-01-19 Completed [facility] PFIZER VACCINE 00:00:00 [facility] SARS-COV-2 COVID-19 2021-01-19 Completed [facility] PFIZER VACCINE 00:00:00 [facility] SARS-COV-2 COVID-19 2021-01-19 Completed [facility] PFIZER VACCINE 00:00:00 [facility] SARS-COV-2 COVID-19 2021-01-19 Completed [facility] PFIZER VACCINE 00:00:00 [facility] SARS-COV-2 COVID-19 2021-01-19 Completed [facility] PFIZER VACCINE 00:00:00 [facility] SARS-COV-2 COVID-19 2021-01-19 Completed [facility] PFIZER VACCINE 00:00:00 [facility] SARS-COV-2 COVID-19 2021-01-19 Completed [facility] PFIZER VACCINE 00:00:00 [facility] SARS-COV-2 COVID-19 2021-01-19 Completed [facility] PFIZER VACCINE 00:00:00 [facility] SARS-COV-2 COVID-19 2021-01-19 Completed [facility] PFIZER VACCINE 00:00:00 [facility] SARS-COV-2 COVID-19 2021-01-19 Completed [facility] PFIZER VACCINE 00:00:00 [facility] SARS-COV-2 COVID-19 2021-01-19 Completed [facility] PFIZER VACCINE 00:00:00 [facility] SARS-COV-2 COVID-19 2021-01-19 Completed [facility] PFIZER VACCINE 00:00:00 [facility] SARS-COV-2 COVID-19 2021-01-19 Completed [facility] PFIZER VACCINE 00:00:00 [facility] SARS-COV-2 COVID-19 2021-01-19 Completed [facility] PFIZER VACCINE 00:00:00 [facility] SARS-COV-2 COVID-19 2021-01-19 Completed [facility] PFIZER VACCINE 00:00:00 [facility] SARS-COV-2 COVID-19 2021-01-19 Completed [facility] PFIZER VACCINE 00:00:00 [facility] SARS-COV-2 COVID-19 2021-01-19 Completed [facility] PFIZER VACCINE 00:00:00 [facility] SARS-COV-2 COVID-19 2021-01-19 Completed [facility] PFIZER VACCINE 00:00:00 [facility] SARS-COV-2 COVID-19 2021-01-19 Completed [facility] PFIZER VACCINE 00:00:00 [facility] SARS-COV-2 COVID-19 2021-01-19 Completed [facility] PFIZER VACCINE 00:00:00 [facility] SARS-COV-2 COVID-19 2021-01-19 Completed [facility] PFIZER VACCINE 00:00:00 [facility] SARS-COV-2 COVID-19 2021-01-19 Completed [facility] PFIZER VACCINE 00:00:00 [facility] SARS-COV-2 COVID-19 2021-01-19 Completed [facility] PFIZER VACCINE 00:00:00 [facility] SARS-COV-2 COVID-19 2021-01-19 Completed [facility] PFIZER VACCINE 00:00:00 [facility] SARS-COV-2 COVID-19 2021-01-19 Completed [facility] PFIZER VACCINE 00:00:00 [facility] SARS-COV-2 COVID-19 2021-01-19 Completed [facility] PFIZER VACCINE 00:00:00 [facility] SARS-COV-2 COVID-19 2021-01-19 Completed [facility] PFIZER VACCINE 00:00:00 [facility] SARS-COV-2 COVID-19 2021-01-19 Completed [facility] PFIZER VACCINE 00:00:00 [facility] SARS-COV-2 COVID-19 2021-01-19 Completed [facility] PFIZER VACCINE 00:00:00 [facility] SARS-COV-2 COVID-19 2021-01-19 Completed [facility] PFIZER VACCINE 00:00:00 [facility] SARS-COV-2 COVID-19 2021-01-19 Completed [facility] PFIZER VACCINE 00:00:00 [facility] SARS-COV-2 COVID-19 2021-01-19 Completed [facility] PFIZER VACCINE 00:00:00 [facility] SARS-COV-2 COVID-19 2021-01-19 Completed [facility] PFIZER VACCINE 00:00:00 [facility] SARS-COV-2 COVID-19 2021-01-19 Completed [facility] PFIZER VACCINE 00:00:00 [facility] SARS-COV-2 COVID-19 2021-01-19 Completed [facility] PFIZER VACCINE 00:00:00 [facility] SARS-COV-2 COVID-19 2021-01-19 Completed [facility] PFIZER VACCINE 00:00:00 [facility] SARS-COV-2 COVID-19 2021-01-19 Completed [facility] PFIZER VACCINE 00:00:00 [facility] SARS-COV-2 COVID-19 2021-01-19 Completed [facility] PFIZER VACCINE 00:00:00 [facility] SARS-COV-2 COVID-19 2021-01-19 Completed [facility] PFIZER VACCINE 00:00:00 [facility] SARS-COV-2 COVID-19 2021-01-19 Completed [facility] PFIZER VACCINE 00:00:00 [facility] SARS-COV-2 COVID-19 2021-01-19 Completed [facility] PFIZER VACCINE 00:00:00 [facility] SARS-COV-2 COVID-19 2021-01-19 Completed [facility] PFIZER VACCINE 00:00:00 [facility] SARS-COV-2 COVID-19 2021-01-19 Completed [facility] PFIZER VACCINE 00:00:00 [facility] SARS-COV-2 COVID-19 2021-01-19 Completed [facility] PFIZER VACCINE 00:00:00 [facility] SARS-COV-2 COVID-19 2021-01-19 Completed [facility] PFIZER VACCINE 00:00:00 [facility] SARS-COV-2 COVID-19 2021-01-19 Completed [facility] PFIZER VACCINE 00:00:00 [facility] SARS-COV-2 COVID-19 2021-01-19 Completed [facility] PFIZER VACCINE 00:00:00 [facility] SARS-COV-2 COVID-19 2021-01-19 Completed [facility] PFIZER VACCINE 00:00:00 [facility] SARS-COV-2 COVID-19 2021-01-19 Completed [facility] PFIZER VACCINE 00:00:00 [facility] SARS-COV-2 COVID-19 2021-01-19 Completed [facility] PFIZER VACCINE 00:00:00 [facility] SARS-COV-2 COVID-19 2021-01-19 Completed [facility] PFIZER VACCINE 00:00:00 [facility] SARS-COV-2 COVID-19 2021-01-19 Completed [facility] PFIZER VACCINE 00:00:00 [facility] SARS-COV-2 COVID-19 2021-01-19 Completed [facility] PFIZER VACCINE 00:00:00 [facility] SARS-COV-2 COVID-19 2021-01-19 Completed [facility] PFIZER VACCINE 00:00:00 [facility] SARS-COV-2 COVID-19 2021-01-19 Completed [facility] PFIZER VACCINE 00:00:00 [facility] SARS-COV-2 COVID-19 2021-01-19 Completed [facility] PFIZER VACCINE 00:00:00 [facility] Influenza Virus 2021-01-02 Completed [facility] Vaccine [facility] .5 mL 00:00:00 [facility] Influenza Virus 2021-01-02 Completed [facility] Vaccine [facility] .5 mL 00:00:00 [facility] Influenza Virus 2021-01-02 Completed [facility] Vaccine Quad .5 mL 00:00:00 [facility] Influenza Virus 2021-01-02 Completed [facility] Vaccine Quad .5 mL 00:00:00 [facility] Influenza Virus 2021-01-02 Completed [facility] Vaccine Quad .5 mL 00:00:00 [facility] Influenza Virus 2021-01-02 Completed [facility] Vaccine Quad .5 mL 00:00:00 [facility] Influenza Virus 2021-01-02 Completed [facility] Vaccine Quad .5 mL 00:00:00 [facility] Influenza Virus 2021-01-02 Completed [facility] Vaccine Quad .5 mL 00:00:00 [facility] Influenza Virus 2021-01-02 Completed [facility] Vaccine Quad .5 mL 00:00:00 [facility] Influenza Virus 2021-01-02 Completed [facility] Vaccine Quad .5 mL 00:00:00 [facility] Influenza Virus 2021-01-02 Completed [facility] Vaccine Quad .5 mL 00:00:00 [facility] Influenza Virus 2021-01-02 Completed [facility] Vaccine Quad .5 mL 00:00:00 [facility] Influenza Virus 2021-01-02 Completed [facility] Vaccine Quad .5 mL 00:00:00 [facility] Influenza Virus 2021-01-02 Completed [facility] Vaccine Quad .5 mL 00:00:00 [facility] Influenza Virus 2021-01-02 Completed [facility] Vaccine Quad .5 mL 00:00:00 [facility] Influenza Virus 2021-01-02 Completed [facility] Vaccine Quad .5 mL 00:00:00 [facility] Influenza Virus 2021-01-02 Completed [facility] Vaccine Quad .5 mL 00:00:00 [facility] Influenza Virus 2021-01-02 Completed [facility] Vaccine Quad .5 mL 00:00:00 [facility] Influenza Virus 2021-01-02 Completed [facility] Vaccine Quad .5 mL 00:00:00 [facility] Influenza Virus 2021-01-02 Completed [facility] Vaccine Quad .5 mL 00:00:00 [facility] Influenza Virus 2021-01-02 Completed [facility] Vaccine Quad .5 mL 00:00:00 [facility] Influenza Virus 2021-01-02 Completed [facility] Vaccine Quad .5 mL 00:00:00 [facility] Influenza Virus 2021-01-02 Completed [facility] Vaccine Quad .5 mL 00:00:00 [facility] Influenza Virus 2021-01-02 Completed [facility] Vaccine Quad .5 mL 00:00:00 [facility] Influenza Virus 2021-01-02 Completed [facility] Vaccine Quad .5 mL 00:00:00 [facility] Influenza Virus 2021-01-02 Completed [facility] Vaccine Quad .5 mL 00:00:00 [facility] Influenza Virus 2021-01-02 Completed [facility] Vaccine Quad .5 mL 00:00:00 [facility] Influenza Virus 2021-01-02 Completed [facility] Vaccine Quad .5 mL 00:00:00 [facility] Influenza Virus 2021-01-02 Completed [facility] Vaccine Quad .5 mL 00:00:00 [facility] Influenza Virus 2021-01-02 Completed [facility] Vaccine Quad .5 mL 00:00:00 [facility] Influenza Virus 2021-01-02 Completed [facility] Vaccine Quad .5 mL 00:00:00 [facility] Influenza Virus 2021-01-02 Completed [facility] Vaccine Quad .5 mL 00:00:00 [facility] Influenza Virus 2021-01-02 Completed [facility] Vaccine Quad .5 mL 00:00:00 [facility] Influenza Virus 2021-01-02 Completed [facility] Vaccine Quad .5 mL 00:00:00 [facility] Influenza Virus 2021-01-02 Completed [facility] Vaccine Quad .5 mL 00:00:00 [facility] Influenza Virus 2021-01-02 Completed [facility] Vaccine Quad .5 mL 00:00:00 [facility] Influenza Virus 2021-01-02 Completed [facility] Vaccine Quad .5 mL 00:00:00 [facility] Influenza Virus 2021-01-02 Completed [facility] Vaccine Quad .5 mL 00:00:00 [facility] Influenza Virus 2021-01-02 Completed [facility] Vaccine Quad .5 mL 00:00:00 [facility] Influenza Virus 2021-01-02 Completed [facility] Vaccine Quad .5 mL 00:00:00 [facility] Influenza Virus 2021-01-02 Completed [facility] Vaccine Quad .5 mL 00:00:00 [facility] Influenza Virus 2021-01-02 Completed [facility] Vaccine Quad .5 mL 00:00:00 [facility] Influenza Virus 2021-01-02 Completed [facility] Vaccine Quad .5 mL 00:00:00 [facility] Influenza Virus 2021-01-02 Completed [facility] Vaccine Quad .5 mL 00:00:00 [facility] Influenza Virus 2021-01-02 Completed [facility] Vaccine Quad .5 mL 00:00:00 [facility] Influenza Virus 2021-01-02 Completed [facility] Vaccine Quad .5 mL 00:00:00 [facility] Influenza Virus 2021-01-02 Completed [facility] Vaccine Quad .5 mL 00:00:00 [facility] Influenza Virus 2021-01-02 Completed [facility] Vaccine Quad .5 mL 00:00:00 [facility] Influenza Virus 2021-01-02 Completed [facility] Vaccine Quad .5 mL 00:00:00 [facility] Influenza Virus 2021-01-02 Completed [facility] Vaccine Quad .5 mL 00:00:00 [facility] Influenza Virus 2021-01-02 Completed [facility] Vaccine Quad .5 mL 00:00:00 [facility] Influenza Virus 2021-01-02 Completed [facility] Vaccine Quad .5 mL 00:00:00 [facility] Influenza Virus 2021-01-02 Completed [facility] Vaccine Quad .5 mL 00:00:00 [facility] Influenza Virus 2021-01-02 Completed [facility] Vaccine Quad .5 mL 00:00:00 [facility] Influenza Virus 2021-01-02 Completed [facility] Vaccine Quad .5 mL 00:00:00 [facility] Influenza Virus 2021-01-02 Completed [facility] Vaccine Quad .5 mL 00:00:00 [facility] Influenza Virus 2021-01-02 Completed [facility] Vaccine Quad .5 mL 00:00:00 [facility] Influenza Virus 2021-01-02 Completed [facility] Vaccine Quad .5 mL 00:00:00 [facility] Influenza Virus 2021-01-02 Completed [facility] Vaccine Quad .5 mL 00:00:00 [facility] Influenza Virus 2021-01-02 Completed [facility] Vaccine Quad .5 mL 00:00:00 [facility] Influenza Virus 2021-01-02 Completed [facility] Vaccine Quad .5 mL 00:00:00 [facility] Influenza Virus 2021-01-02 Completed [facility] Vaccine Quad .5 mL 00:00:00 [facility] Influenza Virus 2021-01-02 Completed [facility] Vaccine Quad .5 mL 00:00:00 [facility] Influenza Virus 2021-01-02 Completed [facility] Vaccine Quad .5 mL 00:00:00 [facility] Influenza Virus 2021-01-02 Completed [facility] Vaccine Quad .5 mL 00:00:00 [facility] Influenza Virus 2021-01-02 Completed [facility] Vaccine Quad .5 mL 00:00:00 [facility] Influenza Virus 2021-01-02 Completed [facility] Vaccine Quad .5 mL 00:00:00 [facility] Influenza Virus 2021-01-02 Completed [facility] Vaccine Quad .5 mL 00:00:00 [facility] Influenza Virus 2021-01-02 Completed [facility] Vaccine Quad .5 mL 00:00:00 [facility] Influenza Virus 2021-01-02 Completed [facility] Vaccine Quad .5 mL 00:00:00 [facility] Influenza Virus 2021-01-02 Completed [facility] Vaccine Quad .5 mL 00:00:00 [facility] Influenza Virus 2021-01-02 Completed [facility] Vaccine [facility] .5 mL 00:00:00 [facility] Influenza Virus 2021-01-02 Completed [facility] Vaccine Quad .5 mL 00:00:00 [facility] Influenza Virus 2021-01-02 Completed [facility] Vaccine Quad .5 mL 00:00:00 [facility] Influenza Virus 2021-01-02 Completed [facility] Vaccine Quad .5 mL 00:00:00 [facility] Influenza Virus 2021-01-02 Completed [facility] Vaccine Quad .5 mL 00:00:00 [facility] Influenza Virus 2021-01-02 Completed [facility] Vaccine Quad .5 mL 00:00:00 [facility] Influenza Virus 2021-01-02 Completed [facility] Vaccine Quad .5 mL 00:00:00 [facility] Influenza Virus 2021-01-02 Completed [facility] Vaccine Quad .5 mL 00:00:00 [facility] Influenza Virus 2021-01-02 Completed [facility] Vaccine [facility] .5 mL 00:00:00 [facility] Influenza Virus 2021-01-02 Completed [facility] Vaccine Quad .5 mL 00:00:00 [facility] Influenza Virus 2021-01-02 Completed [facility] Vaccine Quad .5 mL 00:00:00 [facility] Influenza Virus 2021-01-02 Completed [facility] Vaccine Quad .5 mL 00:00:00 [facility] Influenza Virus 2021-01-02 Completed [facility] Vaccine Quad .5 mL 00:00:00 [facility] Influenza Virus 2021-01-02 Completed [facility] Vaccine Quad .5 mL 00:00:00 [facility] Influenza Virus 2021-01-02 Completed [facility] Vaccine Quad .5 mL 00:00:00 [facility] Influenza Virus 2021-01-02 Completed [facility] Vaccine Quad .5 mL 00:00:00 [facility] Influenza Virus 2021-01-02 Completed [facility] Vaccine Quad .5 mL 00:00:00 [facility] Influenza Virus 2021-01-02 Completed [facility] Vaccine Quad .5 mL 00:00:00 [facility] Influenza Virus 2021-01-02 Completed [facility] Vaccine Quad .5 mL 00:00:00 [facility] Influenza Virus 2021-01-02 Completed [facility] Vaccine Quad .5 mL 00:00:00 [facility] Influenza Virus 2021-01-02 Completed [facility] Vaccine Quad .5 mL 00:00:00 [facility] Influenza Virus 2021-01-02 Completed [facility] Vaccine Quad .5 mL 00:00:00 [facility] Influenza Virus 2021-01-02 Completed [facility] Vaccine Quad .5 mL 00:00:00 [facility] Influenza Virus 2021-01-02 Completed [facility] Vaccine Quad .5 mL 00:00:00 [facility] Influenza Virus 2021-01-02 Completed [facility] Vaccine Quad .5 mL 00:00:00 [facility] Influenza Virus 2021-01-02 Completed [facility] Vaccine Quad .5 mL 00:00:00 [facility] Influenza Virus 2021-01-02 Completed [facility] Vaccine Quad .5 mL 00:00:00 [facility] Influenza Virus 2021-01-02 Completed [facility] Vaccine Quad .5 mL 00:00:00 [facility] Influenza Virus 2021-01-02 Completed [facility] Vaccine Quad .5 mL 00:00:00 [facility] Influenza Virus 2021-01-02 Completed [facility] Vaccine Quad .5 mL 00:00:00 [facility] Influenza Virus 2021-01-02 Completed [facility] Vaccine Quad .5 mL 00:00:00 [facility] Influenza Virus 2021-01-02 Completed [facility] Vaccine Quad .5 mL 00:00:00 [facility] Influenza Virus 2021-01-02 Completed [facility] Vaccine Quad .5 mL 00:00:00 [facility] Influenza Virus 2021-01-02 Completed [facility] Vaccine Quad .5 mL 00:00:00 [facility] Influenza Virus 2021-01-02 Completed [facility] Vaccine Quad .5 mL 00:00:00 [facility] (FLUZONE/FLULAVAL/F LUARIX) Influenza Virus 2021-01-02 Completed [facility] Vaccine Quad .5 mL 00:00:00 [facility] (FLUZONE/FLULAVAL/F LUARIX) Influenza Virus 2021-01-02 Completed [facility] Vaccine Quad .5 mL 00:00:00 [facility] (FLUZONE/FLULAVAL/F LUARIX) Pneumococcal 13 2020-11-30 Completed [facility] Conjugate, PCV13 00:00:00 [facility] (Pre[facility]ar 13) [facility] Pneumococcal 13 2020-11-30 Completed [facility] Conjugate, PCV13 00:00:00 [facility] (Prevnar 13) [facility] Pneumococcal 13 2020-11-30 Completed [facility] Conjugate, PCV13 00:00:00 [facility] (Prevnar 13) [facility] Pneumococcal 13 2020-11-30 Completed [facility] Conjugate, PCV13 00:00:00 [facility] (Prevnar 13) [facility] Pneumococcal 13 2020-11-30 Completed [facility] Conjugate, PCV13 00:00:00 [facility] (Prevnar 13) [facility] Pneumococcal 13 2020-11-30 Completed [facility] Conjugate, PCV13 00:00:00 [facility] (Prevnar 13) [facility] Pneumococcal 13 2020-11-30 Completed [facility] Conjugate, PCV13 00:00:00 [facility] (Prevnar 13) [facility] Pneumococcal 13 2020-11-30 Completed [facility] Conjugate, PCV13 00:00:00 [facility] (Prevnar 13) [facility] Pneumococcal 13 2020-11-30 Completed [facility] Conjugate, PCV13 00:00:00 [facility] (Prevnar 13) [facility] Pneumococcal 13 2020-11-30 Completed [facility] Conjugate, PCV13 00:00:00 [facility] (Prevnar 13) [facility] Pneumococcal 13 2020-11-30 Completed [facility] Conjugate, PCV13 00:00:00 [facility] (Prevnar 13) [facility] Pneumococcal 13 2020-11-30 Completed [facility] Conjugate, PCV13 00:00:00 [facility] (Prevnar 13) [facility] Pneumococcal 13 2020-11-30 Completed [facility] Conjugate, PCV13 00:00:00 [facility] (Prevnar 13) [facility] Pneumococcal 13 2020-11-30 Completed [facility] Conjugate, PCV13 00:00:00 [facility] (Prevnar 13) [facility] Pneumococcal 13 2020-11-30 Completed [facility] Conjugate, PCV13 00:00:00 [facility] (Prevnar 13) [facility] Pneumococcal 13 2020-11-30 Completed [facility] Conjugate, PCV13 00:00:00 [facility] (Prevnar 13) [facility] Pneumococcal 13 2020-11-30 Completed [facility] Conjugate, PCV13 00:00:00 [facility] (Prevnar 13) [facility] Pneumococcal 13 2020-11-30 Completed [facility] Conjugate, PCV13 00:00:00 [facility] (Prevnar 13) [facility] Pneumococcal 13 2020-11-30 Completed [facility] Conjugate, PCV13 00:00:00 [facility] (Prevnar 13) [facility] Pneumococcal 13 2020-11-30 Completed [facility] Conjugate, PCV13 00:00:00 [facility] (Prevnar 13) [facility] Pneumococcal 13 2020-11-30 Completed [facility] Conjugate, PCV13 00:00:00 [facility] (Prevnar 13) [facility] Pneumococcal 13 2020-11-30 Completed [facility] Conjugate, PCV13 00:00:00 [facility] [facility] (Prevnar 13) Branch Pneumococcal 13 2020-11-30 Completed [facility] Con[facility]ate, PCV13 00:00:00 [facility] (Prevnar 13) [facility] Pneumococcal 13 2020-11-30 Completed [facility] Conjugate, PCV13 00:00:00 [facility] (Prevnar 13) Branch Pneumococcal 13 2020-11-30 Completed [facility] Conjugate, PCV13 00:00:00 [facility] (Prevnar 13) Branch Pneumococcal 13 2020-11-30 Completed [facility] Conjugate, PCV13 00:00:00 [facility] (Prevnar 13) Branch Pneumococcal 13 2020-11-30 Completed [facility] Conjugate, PCV13 00:00:00 [place] [facility] (Prevnar 13) Branch Pneumococcal 13 2020-11-30 Completed [facility] Conjugate, PCV13 00:00:00 [place] [facility] (Prevnar 13) Branch Pneumococcal 13 2020-11-30 Completed [facility] Conjugate, PCV13 00:00:00 [facility] (Prevnar 13) Branch Pneumococcal 13 2020-11-30 Completed [facility] Conjugate, PCV13 00:00:00 [facility] (Prevnar 13) Branch Pneumococcal 13 2020-11-30 Completed [facility] Conjugate, PCV13 00:00:00 [facility] (Prevnar 13) Branch Pneumococcal 13 2020-11-30 Completed [facility] Conjugate, PCV13 00:00:00 [facility] (Prevnar 13) Branch Pneumococcal 13 2020-11-30 Completed [facility] Conjugate, PCV13 00:00:00 [facility] (Prevnar 13) Branch Pneumococcal 13 2020-11-30 Completed [facility] Conjugate, PCV13 00:00:00 [place] [facility] (Prevnar 13) Branch Pneumococcal 13 2020-11-30 Completed [facility] Conjugate, PCV13 00:00:00 [place] [facility] (Prevnar 13) Branch Pneumococcal 13 2020-11-30 Completed [facility] Conjugate, PCV13 00:00:00 [place] [facility] (Prevnar 13) Branch Pneumococcal 13 2020-11-30 Completed [facility] Conjugate, PCV13 00:00:00 [place] [facility] (Prevnar 13) Branch Pneumococcal 13 2020-11-30 Completed [facility] Conjugate, PCV13 00:00:00 [place] [facility] (Prevnar 13) Branch Pneumococcal 13 2020-11-30 Completed [facility] Conjugate, PCV13 00:00:00 [place] [facility] (Prevnar 13) Branch Pneumococcal 13 2020-11-30 Completed [facility] Conjugate, PCV13 00:00:00 [place] [facility] (Prevnar 13) Branch Pneumococcal 13 2020-11-30 Completed [facility] Conjugate, PCV13 00:00:00 [place] [facility] (Prevnar 13) Branch Pneumococcal 13 2020-11-30 Completed [facility] Conjugate, PCV13 00:00:00 [place] [facility] (Prevnar 13) Branch Pneumococcal 13 2020-11-30 Completed [facility] Conjugate, PCV13 00:00:00 [place] [facility] (Prevnar 13) Branch Pneumococcal 13 2020-11-30 Completed [facility] Conjugate, PCV13 00:00:00 [place] [facility] (Prevnar 13) Branch Pneumococcal 13 2020-11-30 Completed [facility] Conjugate, PCV13 00:00:00 [place] [facility] (Prevnar 13) Branch Pneumococcal 13 2020-11-30 Completed [facility] Conjugate, PCV13 00:00:00 [place] [facility] (Prevnar 13) Branch Pneumococcal 13 2020-11-30 Completed [facility] Conjugate, PCV13 00:00:00 [place] [facility] (Prevnar 13) Branch Pneumococcal 13 2020-11-30 Completed [facility] Conjugate, PCV13 00:00:00 [place] [facility] (Prevnar 13) Branch Pneumococcal 13 2020-11-30 Completed [facility] Conjugate, PCV13 00:00:00 [place] [facility] (Prevnar 13) Branch Pneumococcal 13 2020-11-30 Completed [facility] Conjugate, PCV13 00:00:00 [place] [facility] (Prevnar 13) Branch Pneumococcal 13 2020-11-30 Completed [facility] Conjugate, PCV13 00:00:00 [place] [facility] (Prevnar 13) Branch Pneumococcal 13 2020-11-30 Completed [facility] Conjugate, PCV13 00:00:00 [place] [facility] (Prevnar 13) Branch Pneumococcal 13 2020-11-30 Completed [facility] Conjugate, PCV13 00:00:00 [place] [facility] (Prevnar 13) Branch Pneumococcal 13 2020-11-30 Completed [facility] Conjugate, PCV13 00:00:00 [place] [facility] (Prevnar 13) Branch Pneumococcal 13 2020-11-30 Completed [facility] Conjugate, PCV13 00:00:00 [place] [facility] (Prevnar 13) Branch Pneumococcal 13 2020-11-30 Completed [facility] Conjugate, PCV13 00:00:00 [place] [facility] (Prevnar 13) Branch Pneumococcal 13 2020-11-30 Completed [facility] Conjugate, PCV13 00:00:00 [place] [facility] (Prevnar 13) Branch Pneumococcal 13 2020-11-30 Completed [facility] Conjugate, PCV13 00:00:00 [place] [facility] (Prevnar 13) Branch Pneumococcal 13 2020-11-30 Completed [facility] Conjugate, PCV13 00:00:00 [place] [facility] (Prevnar 13) Branch Pneumococcal 13 2020-11-30 Completed [facility] Conjugate, PCV13 00:00:00 [place] [facility] (Prevnar 13) Branch Pneumococcal 13 2020-11-30 Completed [facility] Conjugate, PCV13 00:00:00 [place] [facility] (Prevnar 13) Branch Pneumococcal 13 2020-11-30 Completed [facility] Conjugate, PCV13 00:00:00 [place] [facility] (Prevnar 13) Branch Pneumococcal 13 2020-11-30 Completed [facility] Conjugate, PCV13 00:00:00 [place] [facility] (Prevnar 13) Branch Pneumococcal 13 2020-11-30 Completed [facility] Conjugate, PCV13 00:00:00 [place] [facility] (Prevnar 13) Branch Pneumococcal 13 2020-11-30 Completed [facility] Conjugate, PCV13 00:00:00 [place] [facility] (Prevnar 13) Branch Pneumococcal 13 2020-11-30 Completed [facility] Conjugate, PCV13 00:00:00 [place] [facility] (Prevnar 13) Branch Pneumococcal 13 2020-11-30 Completed [facility] Conjugate, PCV13 00:00:00 [place] [facility] (Prevnar 13) Branch Pneumococcal 13 2020-11-30 Completed [facility] Conjugate, PCV13 00:00:00 [place] [facility] (Prevnar 13) Branch Pneumococcal 13 2020-11-30 Completed [facility] Conjugate, PCV13 00:00:00 [place] [facility] (Prevnar 13) Branch Pneumococcal 13 2020-11-30 Completed [facility] Conjugate, PCV13 00:00:00 [place] [facility] (Prevnar 13) Branch Pneumococcal 13 2020-11-30 Completed [facility] Conjugate, PCV13 00:00:00 [place] [facility] (Prevnar 13) Branch Pneumococcal 13 2020-11-30 Completed [facility] Conjugate, PCV13 00:00:00 [place] [facility] (Prevnar 13) Branch Pneumococcal 13 2020-11-30 Completed [facility] Conjugate, PCV13 00:00:00 [place] [facility] (Prevnar 13) Branch Pneumococcal 13 2020-11-30 Completed [facility] Conjugate, PCV13 00:00:00 [place] [facility] (Prevnar 13) Branch Pneumococcal 13 2020-11-30 Completed [facility] Conjugate, PCV13 00:00:00 [place] [facility] (Prevnar 13) Branch Pneumococcal 13 2020-11-30 Completed [facility] Conjugate, PCV13 00:00:00 [place] [facility] (Prevnar 13) Branch Pneumococcal 13 2020-11-30 Completed [facility] Conjugate, PCV13 00:00:00 [place] [facility] (Prevnar 13) Branch Pneumococcal 13 2020-11-30 Completed [facility] Conjugate, PCV13 00:00:00 [place] [facility] (Prevnar 13) Branch Pneumococcal 13 2020-11-30 Completed [facility] Conjugate, PCV13 00:00:00 [place] [facility] (Prevnar 13) Branch Pneumococcal 13 2020-11-30 Completed [facility] Conjugate, PCV13 00:00:00 [place] [facility] (Prevnar 13) Branch Pneumococcal 13 2020-11-30 Completed [facility] Conjugate, PCV13 00:00:00 [place] [facility] (Prevnar 13) Branch Pneumococcal 13 2020-11-30 Completed [facility] Conjugate, PCV13 00:00:00 [place] [facility] (Prevnar 13) Branch Pneumococcal 13 2020-11-30 Completed [facility] Conjugate, PCV13 00:00:00 [place] [facility] (Prevnar 13) Branch Pneumococcal 13 2020-11-30 Completed [facility] Conjugate, PCV13 00:00:00 [place] [facility] (Prevnar 13) Branch Pneumococcal 13 2020-11-30 Completed [facility] Conjugate, PCV13 00:00:00 [place] [facility] (Prevnar 13) Branch Pneumococcal 13 2020-11-30 Completed [facility] Conjugate, PCV13 00:00:00 [place] [facility] (Prevnar 13) Branch Pneumococcal 13 2020-11-30 Completed [facility] Conjugate, PCV13 00:00:00 [place] [facility] (Prevnar 13) Branch Pneumococcal 13 2020-11-30 Completed [facility] Conjugate, PCV13 00:00:00 [place] [facility] (Prevnar 13) Branch Pneumococcal 13 2020-11-30 Completed [facility] Conjugate, PCV13 00:00:00 [place] [facility] (Prevnar 13) Branch Pneumococcal 13 2020-11-30 Completed [facility] Conjugate, PCV13 00:00:00 [place] [facility] (Prevnar 13) Branch Pneumococcal 13 2020-11-30 Completed [facility] Conjugate, PCV13 00:00:00 [place] [facility] (Prevnar 13) Branch Pneumococcal 13 2020-11-30 Completed [facility] Conjugate, PCV13 00:00:00 [place] [facility] (Prevnar 13) Branch Pneumococcal 13 2020-11-30 Completed [facility] Conjugate, PCV13 00:00:00 [place] [facility] (Prevnar 13) Branch Pneumococcal 13 2020-11-30 Completed [facility] Conjugate, PCV13 00:00:00 [place] [facility] (Prevnar 13) Branch Pneumococcal 13 2020-11-30 Completed [facility] Conjugate, PCV13 00:00:00 [place] [facility] (Prevnar 13) Branch Pneumococcal 13 2020-11-30 Completed [facility] Conjugate, PCV13 00:00:00 [place] [facility] (Prevnar 13) Branch Pneumococcal 13 2020-11-30 Completed [facility] Conjugate, PCV13 00:00:00 [place] [facility] (Prevnar 13) Branch Pneumococcal 13 2020-11-30 Completed [facility] Conjugate, PCV13 00:00:00 [place] [facility] (Prevnar 13) Branch Pneumococcal 13 2020-11-30 Completed [facility] Conjugate, PCV13 00:00:00 [place] [facility] (Prevnar 13) Branch Pneumococcal 13 2020-11-30 Completed [facility] Conjugate, PCV13 00:00:00 [place] [facility] (Prevnar 13) Branch Pneumococcal 13 2020-11-30 Completed [facility] Conjugate, PCV13 00:00:00 [place] [facility] (Prevnar 13) Branch Pneumococcal 13 2020-11-30 Completed [facility] Conjugate, PCV13 00:00:00 [place] [facility] (Prevnar 13) Branch Pneumococcal 13 2020-11-30 Completed [facility] Conjugate, PCV13 00:00:00 [place] [facility] (Prevnar 13) Branch Pneumococcal 13 2020-11-30 Completed [facility] Conjugate, PCV13 00:00:00 [place] [facility] (Prevnar 13) Branch Pneumococcal 13 2020-11-30 Completed [facility] Conjugate, PCV13 00:00:00 [place] [facility] (Prevnar 13) Branch Pneumococcal 13 2020-11-30 Completed [facility] Conjugate, PCV13 00:00:00 [place] [facility] (Prevnar 13) Branch Pneumococcal 13 2020-11-30 Completed [facility] Conjugate, PCV13 00:00:00 [place] [facility] (Prevnar 13) Branch Pneumococcal 13 2020-11-30 Completed [facility] Conjugate, PCV13 00:00:00 [facility] (Prevnar 13) Branch Influenza Virus 2019-10-14 Completed [facility] Vaccine Quad .5 mL 00:00:00 [facility] Influenza Virus 2019-10-14 Completed [facility] Vaccine Quad .5 mL 00:00:00 [facility] Influenza Virus 2019-10-14 Completed [facility] Vaccine Quad .5 mL 00:00:00 [facility] Influenza Virus 2019-10-14 Completed [facility] Vaccine Quad .5 mL 00:00:00 [facility] Influenza Virus 2019-10-14 Completed [facility] Vaccine Quad .5 mL 00:00:00 [facility] Influenza Virus 2019-10-14 Completed [facility] Vaccine Quad .5 mL 00:00:00 [facility] Influenza Virus 2019-10-14 Completed [facility] Vaccine Quad .5 mL 00:00:00 [facility] Influenza Virus 2019-10-14 Completed [facility] Vaccine Quad .5 mL 00:00:00 [facility] Influenza Virus 2019-10-14 Completed [facility] Vaccine Quad .5 mL 00:00:00 [facility] Influenza Virus 2019-10-14 Completed [facility] Vaccine Quad .5 mL 00:00:00 [facility] Influenza Virus 2019-10-14 Completed [facility] Vaccine Quad .5 mL 00:00:00 [facility] Influenza Virus 2019-10-14 Completed [facility] Vaccine Quad .5 mL 00:00:00 [facility] Influenza Virus 2019-10-14 Completed [facility] Vaccine Quad .5 mL 00:00:00 [facility] Influenza Virus 2019-10-14 Completed [facility] Vaccine Quad .5 mL 00:00:00 [facility] Influenza Virus 2019-10-14 Completed [facility] Vaccine Quad .5 mL 00:00:00 [facility] Influenza Virus 2019-10-14 Completed [facility] Vaccine Quad .5 mL 00:00:00 [facility] Influenza Virus 2019-10-14 Completed [facility] Vaccine Quad .5 mL 00:00:00 [facility] Influenza Virus 2019-10-14 Completed [facility] Vaccine Quad .5 mL 00:00:00 [facility] Influenza Virus 2019-10-14 Completed [facility] Vaccine Quad .5 mL 00:00:00 [facility] Influenza Virus 2019-10-14 Completed [facility] Vaccine Quad .5 mL 00:00:00 [facility] Influenza Virus 2019-10-14 Completed [facility] Vaccine Quad .5 mL 00:00:00 [facility] Influenza Virus 2019-10-14 Completed [facility] Vaccine Quad .5 mL 00:00:00 [facility] Influenza Virus 2019-10-14 Completed [facility] Vaccine Quad .5 mL 00:00:00 [facility] Influenza Virus 2019-10-14 Completed [facility] Vaccine Quad .5 mL 00:00:00 [facility] Influenza Virus 2019-10-14 Completed [facility] Vaccine Quad .5 mL 00:00:00 [facility] Influenza Virus 2019-10-14 Completed [facility] Vaccine Quad .5 mL 00:00:00 [facility] Influenza Virus 2019-10-14 Completed [facility] Vaccine Quad .5 mL 00:00:00 [facility] Influenza Virus 2019-10-14 Completed [facility] Vaccine Quad .5 mL 00:00:00 [facility] Influenza Virus 2019-10-14 Completed [facility] Vaccine Quad .5 mL 00:00:00 [facility] Influenza Virus 2019-10-14 Completed [facility] Vaccine Quad .5 mL 00:00:00 [facility] Influenza Virus 2019-10-14 Completed [facility] Vaccine Quad .5 mL 00:00:00 [facility] Influenza Virus 2019-10-14 Completed [facility] Vaccine Quad .5 mL 00:00:00 [facility] Influenza Virus 2019-10-14 Completed [facility] Vaccine Quad .5 mL 00:00:00 [facility] Influenza Virus 2019-10-14 Completed [facility] Vaccine Quad .5 mL 00:00:00 [facility] Influenza Virus 2019-10-14 Completed [facility] Vaccine Quad .5 mL 00:00:00 [facility] Influenza Virus 2019-10-14 Completed [facility] Vaccine Quad .5 mL 00:00:00 [facility] Influenza Virus 2019-10-14 Completed [facility] Vaccine Quad .5 mL 00:00:00 [facility] Influenza Virus 2019-10-14 Completed [facility] Vaccine Quad .5 mL 00:00:00 [facility] Influenza Virus 2019-10-14 Completed [facility] Vaccine Quad .5 mL 00:00:00 [facility] Influenza Virus 2019-10-14 Completed [facility] Vaccine Quad .5 mL 00:00:00 [facility] Influenza Virus 2019-10-14 Completed [facility] Vaccine Quad .5 mL 00:00:00 [facility] Influenza Virus 2019-10-14 Completed [facility] Vaccine Quad .5 mL 00:00:00 [facility] Influenza Virus 2019-10-14 Completed [facility] Vaccine Quad .5 mL 00:00:00 [facility] Influenza Virus 2019-10-14 Completed [facility] Vaccine Quad .5 mL 00:00:00 [facility] Influenza Virus 2019-10-14 Completed [facility] Vaccine Quad .5 mL 00:00:00 [facility] Influenza Virus 2019-10-14 Completed [facility] Vaccine Quad .5 mL 00:00:00 [facility] Influenza Virus 2019-10-14 Completed [facility] Vaccine Quad .5 mL 00:00:00 [facility] Influenza Virus 2019-10-14 Completed [facility] Vaccine Quad .5 mL 00:00:00 [facility] Influenza Virus 2019-10-14 Completed [facility] Vaccine Quad .5 mL 00:00:00 [facility] Influenza Virus 2019-10-14 Completed [facility] Vaccine Quad .5 mL 00:00:00 [facility] Influenza Virus 2019-10-14 Completed [facility] Vaccine Quad .5 mL 00:00:00 [facility] Influenza Virus 2019-10-14 Completed [facility] Vaccine Quad .5 mL 00:00:00 [facility] Influenza Virus 2019-10-14 Completed [facility] Vaccine Quad .5 mL 00:00:00 [facility] Influenza Virus 2019-10-14 Completed [facility] Vaccine Quad .5 mL 00:00:00 [facility] Influenza Virus 2019-10-14 Completed [facility] Vaccine Quad .5 mL 00:00:00 [facility] Influenza Virus 2019-10-14 Completed [facility] Vaccine Quad .5 mL 00:00:00 [facility] Influenza Virus 2019-10-14 Completed [facility] Vaccine Quad .5 mL 00:00:00 [facility] Influenza Virus 2019-10-14 Completed [facility] Vaccine Quad .5 mL 00:00:00 [facility] Influenza Virus 2019-10-14 Completed [facility] Vaccine Quad .5 mL 00:00:00 [facility] Influenza Virus 2019-10-14 Completed [facility] Vaccine Quad .5 mL 00:00:00 [facility] Influenza Virus 2019-10-14 Completed [facility] Vaccine Quad .5 mL 00:00:00 [facility] Influenza Virus 2019-10-14 Completed [facility] Vaccine Quad .5 mL 00:00:00 [facility] Influenza Virus 2019-10-14 Completed [facility] Vaccine Quad .5 mL 00:00:00 [facility] Influenza Virus 2019-10-14 Completed [facility] Vaccine Quad .5 mL 00:00:00 [facility] Influenza Virus 2019-10-14 Completed [facility] Vaccine Quad .5 mL 00:00:00 [facility] Influenza Virus 2019-10-14 Completed [facility] Vaccine Quad .5 mL 00:00:00 [facility] Influenza Virus 2019-10-14 Completed [facility] Vaccine Quad .5 mL 00:00:00 [facility] Influenza Virus 2019-10-14 Completed [facility] Vaccine Quad .5 mL 00:00:00 [facility] Influenza Virus 2019-10-14 Completed [facility] Vaccine Quad .5 mL 00:00:00 [facility] Influenza Virus 2019-10-14 Completed [facility] Vaccine Quad .5 mL 00:00:00 [facility] Influenza Virus 2019-10-14 Completed [facility] Vaccine Quad .5 mL 00:00:00 [facility] Influenza Virus 2019-10-14 Completed [facility] Vaccine Quad .5 mL 00:00:00 [facility] Influenza Virus 2019-10-14 Completed [facility] Vaccine Quad .5 mL 00:00:00 [facility] Influenza Virus 2019-10-14 Completed [facility] Vaccine Quad .5 mL 00:00:00 [facility] Influenza Virus 2019-10-14 Completed [facility] Vaccine Quad .5 mL 00:00:00 [facility] Influenza Virus 2019-10-14 Completed [facility] Vaccine Quad .5 mL 00:00:00 [facility] Influenza Virus 2019-10-14 Completed [facility] Vaccine Quad .5 mL 00:00:00 [facility] Influenza Virus 2019-10-14 Completed [facility] Vaccine Quad .5 mL 00:00:00 [facility] Influenza Virus 2019-10-14 Completed [facility] Vaccine Quad .5 mL 00:00:00 [facility] Influenza Virus 2019-10-14 Completed [facility] Vaccine Quad .5 mL 00:00:00 [facility] Influenza Virus 2019-10-14 Completed [facility] Vaccine Quad .5 mL 00:00:00 [facility] Influenza Virus 2019-10-14 Completed [facility] Vaccine Quad .5 mL 00:00:00 [facility] Influenza Virus 2019-10-14 Completed [facility] Vaccine Quad .5 mL 00:00:00 [facility] Influenza Virus 2019-10-14 Completed [facility] Vaccine Quad .5 mL 00:00:00 [facility] Influenza Virus 2019-10-14 Completed [facility] Vaccine Quad .5 mL 00:00:00 [facility] Influenza Virus 2019-10-14 Completed [facility] Vaccine Quad .5 mL 00:00:00 [facility] Influenza Virus 2019-10-14 Completed [facility] Vaccine Quad .5 mL 00:00:00 [facility] Influenza Virus 2019-10-14 Completed [facility] Vaccine Quad .5 mL 00:00:00 [facility] Influenza Virus 2019-10-14 Completed [facility] Vaccine Quad .5 mL 00:00:00 [facility] Influenza Virus 2019-10-14 Completed [facility] Vaccine Quad .5 mL 00:00:00 [facility] Influenza Virus 2019-10-14 Completed [facility] Vaccine Quad .5 mL 00:00:00 [facility] Influenza Virus 2019-10-14 Completed [facility] Vaccine Quad .5 mL 00:00:00 [facility] Influenza Virus 2019-10-14 Completed [facility] Vaccine Quad .5 mL 00:00:00 [facility] Influenza Virus 2019-10-14 Completed [facility] Vaccine Quad .5 mL 00:00:00 [facility] Influenza Virus 2019-10-14 Completed [facility] Vaccine Quad .5 mL 00:00:00 [facility] Influenza Virus 2019-10-14 Completed [facility] Vaccine Quad .5 mL 00:00:00 [facility] Influenza Virus 2019-10-14 Completed [facility] Vaccine Quad .5 mL 00:00:00 [facility] Influenza Virus 2019-10-14 Completed [facility] Vaccine Quad .5 mL 00:00:00 [facility] Influenza Virus 2019-10-14 Completed [facility] Vaccine Quad .5 mL 00:00:00 [facility] Influenza Virus 2019-10-14 Completed [facility] Vaccine Quad .5 mL 00:00:00 [facility] Influenza Virus 2019-10-14 Completed [facility] Vaccine Quad .5 mL 00:00:00 [facility] Influenza Virus 2019-10-14 Completed [facility] Vaccine Quad .5 mL 00:00:00 [facility] Influenza Virus 2019-10-14 Completed [facility] Vaccine Quad .5 mL 00:00:00 [facility] Influenza Virus 2019-10-14 Completed [facility] Vaccine Quad .5 mL 00:00:00 [facility] Influenza Virus 2019-10-14 Completed [facility] Vaccine Quad .5 mL 00:00:00 [facility] Influenza Virus 2019-10-14 Completed [facility] Vaccine Quad .5 mL 00:00:00 [facility] (FLUZONE/FLULAVAL/F LUARIX) Influenza Virus 2019-10-14 Completed [facility] .5 mL 00:00:00 [facility] (FLUZONE/FLULAVAL/F LUARIX) Influenza Virus 2019-10-14 Completed [facility] Vaccine Quad .5 mL 00:00:00 [facility] (FLUZONE/FLULAVAL/F LUARIX) Influenza Virus 2018-09-21 Completed [facility] Vaccine Quad .5 mL 00:00:00 [facility] Influenza Virus 2018-09-21 Completed [facility] Vaccine Quad .5 mL 00:00:00 [facility] Influenza Virus 2018-09-21 Completed [facility] Vaccine Quad .5 mL 00:00:00 [facility] Influenza Virus 2018-09-21 Completed [facility] Vaccine Quad .5 mL 00:00:00 [facility] Influenza Virus 2018-09-21 Completed [facility] Vaccine Quad .5 mL 00:00:00 [facility] Influenza Virus 2018-09-21 Completed [facility] Vaccine Quad .5 mL 00:00:00 [facility] Influenza Virus 2018-09-21 Completed [facility] Vaccine Quad .5 mL 00:00:00 [facility] Influenza Virus 2018-09-21 Completed [facility] Vaccine Quad .5 mL 00:00:00 [facility] Influenza Virus 2018-09-21 Completed [facility] Vaccine Quad .5 mL 00:00:00 [facility] Influenza Virus 2018-09-21 Completed [facility] Vaccine Quad .5 mL 00:00:00 [facility] Influenza Virus 2018-09-21 Completed [facility] Vaccine Quad .5 mL 00:00:00 [facility] Influenza Virus 2018-09-21 Completed [facility] Vaccine Quad .5 mL 00:00:00 [facility] Influenza Virus 2018-09-21 Completed [facility] Vaccine Quad .5 mL 00:00:00 [facility] Influenza Virus 2018-09-21 Completed [facility] Vaccine Quad .5 mL 00:00:00 [facility] Influenza Virus 2018-09-21 Completed [facility] Vaccine Quad .5 mL 00:00:00 [facility] Influenza Virus 2018-09-21 Completed [facility] Vaccine Quad .5 mL 00:00:00 [facility] Influenza Virus 2018-09-21 Completed [facility] Vaccine Quad .5 mL 00:00:00 [facility] Influenza Virus 2018-09-21 Completed [facility] Vaccine Quad .5 mL 00:00:00 [facility] Influenza Virus 2018-09-21 Completed [facility] Vaccine Quad .5 mL 00:00:00 [facility] Influenza Virus 2018-09-21 Completed [facility] Vaccine Quad .5 mL 00:00:00 [facility] Influenza Virus 2018-09-21 Completed [facility] .5 mL 00:00:00 [facility] [facility] Influenza Virus 2018-09-21 Completed [facility] 00:00:00 [facility] Influenza Virus 2018-09-21 Completed [facility] 00:00:00 [facility] Influenza Virus 2018-09-21 Completed [facility] 00:00:00 [facility] Influenza Virus 2018-09-21 Completed [facility] 00:00:00 [facility] Influenza Virus 2018-09-21 Completed [facility] 00:00:00 [facility] Influenza Virus 2018-09-21 Completed [facility] 00:00:00 [facility] Influenza Virus 2018-09-21 Completed [facility] 00:00:00 [facility] Influenza Virus 2018-09-21 Completed [facility] 00:00:00 [facility] Influenza Virus 2018-09-21 Completed [facility] 00:00:00 [facility] Influenza Virus 2018-09-21 Completed [facility] 00:00:00 [facility] Influenza Virus 2018-09-21 Completed [facility] 00:00:00 [facility] Influenza Virus 2018-09-21 Completed [facility] 00:00:00 [facility] Influenza Virus 2018-09-21 Completed [facility] 00:00:00 [facility] Influenza Virus 2018-09-21 Completed [facility] 00:00:00 [facility] Influenza Virus 2018-09-21 Completed [facility] 00:00:00 [facility] Influenza Virus 2018-09-21 Completed [facility] 00:00:00 [facility] Influenza Virus 2018-09-21 Completed [facility] 00:00:00 [facility] Influenza Virus 2018-09-21 Completed [facility] 00:00:00 [facility] Influenza Virus 2018-09-21 Completed [facility] 00:00:00 [facility] Influenza Virus 2018-09-21 Completed [facility] 00:00:00 [facility] Influenza Virus 2018-09-21 Completed [facility] 00:00:00 [facility] Influenza Virus 2018-09-21 Completed [facility] 00:00:00 [facility] Influenza Virus 2018-09-21 Completed [facility] 00:00:00 [facility] Influenza Virus 2018-09-21 Completed [facility] 00:00:00 [facility] Influenza Virus 2018-09-21 Completed [facility] 00:00:00 [facility] Influenza Virus 2018-09-21 Completed [facility] 00:00:00 [facility] Influenza Virus 2018-09-21 Completed [facility] 00:00:00 [facility] Influenza Virus 2018-09-21 Completed [facility] 00:00:00 [facility] Influenza Virus 2018-09-21 Completed [facility] mL 00:00:00 [facility] Influenza Virus 2018-09-21 Completed [facility] 00:00:00 [facility] Influenza Virus 2018-09-21 Completed [facility] 00:00:00 [facility] Influenza Virus 2018-09-21 Completed [facility] mL 00:00:00 [facility] Influenza Virus 2018-09-21 Completed [facility]5 mL 00:00:00 [facility] Influenza Virus 2018-09-21 Completed [facility]5 mL 00:00:00 [facility] Influenza Virus 2018-09-21 Completed [facility]5 mL 00:00:00 [facility] Influenza Virus 2018-09-21 Completed [facility] 00:00:00 [facility] Influenza Virus 2018-09-21 Completed [facility]5 mL 00:00:00 [facility] Influenza Virus 2018-09-21 Completed [facility] mL 00:00:00 [facility] Influenza Virus 2018-09-21 Completed [facility] mL 00:00:00 [facility] Influenza Virus 2018-09-21 Completed [facility] mL 00:00:00 [facility] Influenza Virus 2018-09-21 Completed [facility]5 mL 00:00:00 [facility] Influenza Virus 2018-09-21 Completed [facility] mL 00:00:00 [facility] Influenza Virus 2018-09-21 Completed [facility]5 mL 00:00:00 [facility] Influenza Virus 2018-09-21 Completed [facility]5 mL 00:00:00 [facility] Influenza Virus 2018-09-21 Completed [facility] mL 00:00:00 [facility] Influenza Virus 2018-09-21 Completed [facility]5 mL 00:00:00 [facility] Influenza Virus 2018-09-21 Completed [facility]5 mL 00:00:00 [facility] Influenza Virus 2018-09-21 Completed [facility]5 mL 00:00:00 [facility] Influenza Virus 2018-09-21 Completed [facility]5 mL 00:00:00 [facility] Influenza Virus 2018-09-21 Completed [facility]5 mL 00:00:00 [facility] Influenza Virus 2018-09-21 Completed [facility]5 mL 00:00:00 [facility] Influenza Virus 2018-09-21 Completed [facility]5 mL 00:00:00 [facility] Influenza Virus 2018-09-21 Completed [facility]5 mL 00:00:00 [facility] Influenza Virus 2018-09-21 Completed [facility]5 mL 00:00:00 [facility] Influenza Virus 2018-09-21 Completed [facility]5 mL 00:00:00 [facility] Influenza Virus 2018-09-21 Completed [facility]5 mL 00:00:00 [facility] Influenza Virus 2018-09-21 Completed [facility]5 mL 00:00:00 [facility] Influenza Virus 2018-09-21 Completed [facility]5 mL 00:00:00 [facility] Influenza Virus 2018-09-21 Completed [facility]5 mL 00:00:00 [facility] Influenza Virus 2018-09-21 Completed [facility]5 mL 00:00:00 [facility] Influenza Virus 2018-09-21 Completed [facility]5 mL 00:00:00 [facility] Influenza Virus 2018-09-21 Completed [facility]5 mL 00:00:00 [facility] Influenza Virus 2018-09-21 Completed [facility]5 mL 00:00:00 [facility] Influenza Virus 2018-09-21 Completed [facility]5 mL 00:00:00 [facility] Influenza Virus 2018-09-21 Completed [facility]5 mL 00:00:00 [facility] Influenza Virus 2018-09-21 Completed [facility]5 mL 00:00:00 [facility] Influenza Virus 2018-09-21 Completed [facility]5 mL 00:00:00 [facility] Influenza Virus 2018-09-21 Completed [facility]5 mL 00:00:00 [facility] Influenza Virus 2018-09-21 Completed [facility]5 mL 00:00:00 [facility] Influenza Virus 2018-09-21 Completed [facility]5 mL 00:00:00 [facility] Influenza Virus 2018-09-21 Completed [facility]5 mL 00:00:00 [facility] Influenza Virus 2018-09-21 Completed [facility]5 mL 00:00:00 [facility] Influenza Virus 2018-09-21 Completed [facility]5 mL 00:00:00 [facility] Influenza Virus 2018-09-21 Completed [facility]5 mL 00:00:00 [facility] Influenza Virus 2018-09-21 Completed [facility]5 mL 00:00:00 [facility] Influenza Virus 2018-09-21 Completed [facility]5 mL 00:00:00 [facility] Influenza Virus 2018-09-21 Completed [facility]5 mL 00:00:00 [facility] Influenza Virus 2018-09-21 Completed [facility]5 mL 00:00:00 [facility] Influenza Virus 2018-09-21 Completed [facility]5 mL 00:00:00 [facility] Influenza Virus 2018-09-21 Completed [facility]5 mL 00:00:00 [facility] Influenza Virus 2018-09-21 Completed [facility]5 mL 00:00:00 [facility] Influenza Virus 2018-09-21 Completed [facility]5 mL 00:00:00 [facility] Influenza Virus 2018-09-21 Completed [facility]5 mL 00:00:00 [facility] Influenza Virus 2018-09-21 Completed [facility]5 mL 00:00:00 [facility] Influenza Virus 2018-09-21 Completed [facility]5 mL 00:00:00 [facility] (FLUZONE/FLULAVAL/F LUARIX) Influenza Virus 2018-09-21 Completed [facility]5 mL 00:00:00 [facility] (FLUZONE/FLULAVAL/F LUARIX) Influenza Virus 2018-09-21 Completed [facility]5 mL 00:00:00 [facility] (FLUZONE/FLULAVAL/F LUARIX) Influenza Virus 2017-09-10 Completed [facility] 3+ 00:00:00 [facility] Influenza Virus 2017-09-10 Completed [facility] IM 3+ 00:00:00 [facility] Influenza Virus 2017-09-10 Completed [facility] 3+ 00:00:00 [facility] Influenza Virus 2017-09-10 Completed [facility] 3+ 00:00:00 [facility] Influenza Virus 2017-09-10 Completed [facility] 3+ 00:00:00 [facility] Influenza Virus 2017-09-10 Completed [facility] 3+ 00:00:00 [facility] Influenza Virus 2017-09-10 Completed [facility] 3+ 00:00:00 [facility] Influenza Virus 2017-09-10 Completed [facility] 3+ 00:00:00 [facility] Influenza Virus 2017-09-10 Completed [facility] 3+ 00:00:00 [facility] Influenza Virus 2017-09-10 Completed [facility] 3+ 00:00:00 [facility] Influenza Virus 2017-09-10 Completed [facility] 3+ 00:00:00 [facility] Influenza Virus 2017-09-10 Completed [facility] 3+ 00:00:00 [facility] Influenza Virus 2017-09-10 Completed [facility] 3+ 00:00:00 [facility] Influenza Virus 2017-09-10 Completed [facility] 3+ 00:00:00 [facility] Influenza Virus 2017-09-10 Completed [facility] 3+ 00:00:00 [facility] Influenza Virus 2017-09-10 Completed [facility] 3+ 00:00:00 [facility] Influenza Virus 2017-09-10 Completed [facility] 3+ 00:00:00 [facility] Influenza Virus 2017-09-10 Completed [facility] 3+ 00:00:00 [facility] Influenza Virus 2017-09-10 Completed [facility] 3+ 00:00:00 [facility] Influenza Virus 2017-09-10 Completed [facility] 3+ 00:00:00 [facility] Influenza Virus 2017-09-10 Completed [facility] 3+ 00:00:00 [facility] Influenza Virus 2017-09-10 Completed [facility] 3+ 00:00:00 [facility] Influenza Virus 2017-09-10 Completed [facility] 3+ 00:00:00 [facility] Influenza Virus 2017-09-10 Completed [facility] 3+ 00:00:00 [facility] Influenza Virus 2017-09-10 Completed [facility] 3+ 00:00:00 [facility] Influenza Virus 2017-09-10 Completed [facility] IM 3+ 00:00:00 [facility] Influenza Virus 2017-09-10 Completed [facility] IM 3+ 00:00:00 [facility] Influenza Virus 2017-09-10 Completed [facility] 3+ 00:00:00 [facility] Influenza Virus 2017-09-10 Completed [facility] 3+ 00:00:00 [facility] Influenza Virus 2017-09-10 Completed [facility] 3+ 00:00:00 [facility] Influenza Virus 2017-09-10 Completed [facility] 3+ 00:00:00 [facility] Influenza Virus 2017-09-10 Completed [facility] 3+ 00:00:00 [facility] Influenza Virus 2017-09-10 Completed [facility] 3+ 00:00:00 [facility] Influenza Virus 2017-09-10 Completed [facility] 3+ 00:00:00 [facility] Influenza Virus 2017-09-10 Completed [facility] 3+ 00:00:00 [facility] Influenza Virus 2017-09-10 Completed [facility] 3+ 00:00:00 [facility] Influenza Virus 2017-09-10 Completed [facility] 3+ 00:00:00 [facility] Influenza Virus 2017-09-10 Completed [facility] IM 3+ 00:00:00 [facility] Influenza Virus 2017-09-10 Completed [facility] 3+ 00:00:00 [facility] Influenza Virus 2017-09-10 Completed [facility] 3+ 00:00:00 [facility] Influenza Virus 2017-09-10 Completed [facility] 3+ 00:00:00 [facility] Influenza Virus 2017-09-10 Completed [facility] 3+ 00:00:00 [facility] Influenza Virus 2017-09-10 Completed [facility] 3+ 00:00:00 [facility] Influenza Virus 2017-09-10 Completed [facility] 3+ 00:00:00 [facility] Influenza Virus 2017-09-10 Completed [facility] 3+ 00:00:00 [facility] Influenza Virus 2017-09-10 Completed [facility] 3+ 00:00:00 [facility] Influenza Virus 2017-09-10 Completed [facility] 3+ 00:00:00 [facility] Influenza Virus 2017-09-10 Completed [facility] 3+ 00:00:00 [facility] Influenza Virus 2017-09-10 Completed [facility] IM 3+ 00:00:00 [facility] Influenza Virus 2017-09-10 Completed [facility] 3+ 00:00:00 [facility] Influenza Virus 2017-09-10 Completed [facility] IM 3+ 00:00:00 [facility] Influenza Virus 2017-09-10 Completed [facility] 3+ 00:00:00 [facility] Influenza Virus 2017-09-10 Completed [facility] 3+ 00:00:00 [facility] Influenza Virus 2017-09-10 Completed [facility] 3+ 00:00:00 [facility] Influenza Virus 2017-09-10 Completed [facility] IM 3+ 00:00:00 [facility] Influenza Virus 2017-09-10 Completed [facility] 3+ 00:00:00 [facility] Influenza Virus 2017-09-10 Completed [facility] IM 3+ 00:00:00 [facility] Influenza Virus 2017-09-10 Completed [facility] 3+ 00:00:00 [facility] Influenza Virus 2017-09-10 Completed [facility] 3+ 00:00:00 [facility] Influenza Virus 2017-09-10 Completed [facility] IM 3+ 00:00:00 [facility] Influenza Virus 2017-09-10 Completed [facility] 3+ 00:00:00 [facility] Influenza Virus 2017-09-10 Completed [facility] IM 3+ 00:00:00 [facility] Influenza Virus 2017-09-10 Completed [facility] IM 3+ 00:00:00 [facility] Influenza Virus 2017-09-10 Completed [facility] 3+ 00:00:00 [facility] Influenza Virus 2017-09-10 Completed [facility] 3+ 00:00:00 [facility] Influenza Virus 2017-09-10 Completed [facility] 3+ 00:00:00 [facility] Influenza Virus 2017-09-10 Completed [facility] 3+ 00:00:00 [facility] Influenza Virus 2017-09-10 Completed [facility] IM 3+ 00:00:00 [facility] Influenza Virus 2017-09-10 Completed [facility] IM 3+ 00:00:00 [facility] Influenza Virus 2017-09-10 Completed [facility] IM 3+ 00:00:00 [facility] Influenza Virus 2017-09-10 Completed [facility] IM 3+ 00:00:00 [facility] Influenza Virus 2017-09-10 Completed [facility] IM 3+ 00:00:00 [facility] Influenza Virus 2017-09-10 Completed [facility] IM 3+ 00:00:00 [facility] Influenza Virus 2017-09-10 Completed [facility] IM 3+ 00:00:00 [facility] Influenza Virus 2017-09-10 Completed [facility] IM 3+ 00:00:00 [facility] Influenza Virus 2017-09-10 Completed [facility] IM 3+ 00:00:00 [facility] Influenza Virus 2017-09-10 Completed [facility] IM 3+ 00:00:00 [facility] Influenza Virus 2017-09-10 Completed [facility] IM 3+ 00:00:00 [facility] Influenza Virus 2017-09-10 Completed [facility] 3+ 00:00:00 [facility] Influenza Virus 2017-09-10 Completed [facility] IM 3+ 00:00:00 [facility] Influenza Virus 2017-09-10 Completed [facility] IM 3+ 00:00:00 [facility] Influenza Virus 2017-09-10 Completed [facility] IM 3+ 00:00:00 [facility] Influenza Virus 2017-09-10 Completed [facility] IM 3+ 00:00:00 [facility] Influenza Virus 2017-09-10 Completed [facility] IM 3+ 00:00:00 [facility] Influenza Virus 2017-09-10 Completed [facility] IM 3+ 00:00:00 [facility] Influenza Virus 2017-09-10 Completed [facility] IM 3+ 00:00:00 [facility] Influenza Virus 2017-09-10 Completed [facility] IM 3+ 00:00:00 [facility] Influenza Virus 2017-09-10 Completed [facility] IM 3+ 00:00:00 [facility] Influenza Virus 2017-09-10 Completed [facility] IM 3+ 00:00:00 [facility] Influenza Virus 2017-09-10 Completed [facility] IM 3+ 00:00:00 [facility] Influenza Virus 2017-09-10 Completed [facility] 3+ 00:00:00 [facility] Influenza Virus 2017-09-10 Completed [facility] 3+ 00:00:00 [facility] Influenza Virus 2017-09-10 Completed [facility] IM 3+ 00:00:00 [facility] Influenza Virus 2017-09-10 Completed [facility] 3+ 00:00:00 [facility] Influenza Virus 2017-09-10 Completed [facility] 3+ 00:00:00 [facility] Influenza Virus 2017-09-10 Completed [facility] IM 3+ 00:00:00 [facility] Influenza Virus 2017-09-10 Completed [facility] 3+ 00:00:00 [facility] Influenza Virus 2017-09-10 Completed [facility] IM 3+ 00:00:00 [facility] Influenza Virus 2017-09-10 Completed [facility] IM 3+ 00:00:00 [facility] Influenza Virus 2017-09-10 Completed [facility] 3+ 00:00:00 [facility] Influenza Virus 2017-09-10 Completed [facility] IM 3+ 00:00:00 [facility] Influenza Virus 2017-09-10 Completed [facility] IM 3+ 00:00:00 [facility] Influenza Virus 2017-09-10 Completed [facility] 3+ 00:00:00 [facility] Influenza Virus 2017-09-10 Completed [facility] 3+ 00:00:00 [facility] Influenza Virus 2017-09-10 Completed [facility] IM 3+ 00:00:00 [facility] Influenza Virus 2017-09-10 Completed [facility] 3+ 00:00:00 [facility] Influenza Virus 2017-09-10 Completed [facility] 3+ 00:00:00 [facility] Influenza Virus 2017-09-10 Completed [facility] 3+ 00:00:00 [facility] TDAP 2016-10-09 Completed [facility] 00:00:00 [facility] TDAP 2016-10-09 Completed [facility] 00[facility]00:00 [facility] TDAP 2016-10-09 Completed [facility] 00:00:00 [facility] TDAP 2016-10-09 Completed [facility] 00[facility]00:00 [facility] TDAP 2016-10-09 Completed [facility] 00[facility]00:00 [facility] TDAP 2016-10-09 Completed [facility] 00[facility]00:00 [facility] TDAP 2016-10-09 Completed [facility] 00[facility]00:00 [facility] TDAP 2016-10-09 Completed [facility] 00[facility]00:00 [facility] TDAP 2016-10-09 Completed [facility] 00[facility]00:00 [facility] TDAP 2016-10-09 Completed [facility] 00[facility]00:00 [facility] TDAP 2016-10-09 Completed [facility] 00[facility]00:00 [facility] TDAP 2016-10-09 Completed [facility] 00[facility]00:00 [facility] TDAP 2016-10-09 Completed [facility] 00[facility]00:00 [facility] TDAP 2016-10-09 Completed [facility] 00[facility]00:00 [facility] TDAP 2016-10-09 Completed [facility] 00[facility]00:00 [facility] TDAP 2016-10-09 Completed [facility] 00[facility]00:00 [facility] TDAP 2016-10-09 Completed [facility] 00[facility]00:00 [facility] TDAP 2016-10-09 Completed [facility] 00:00:00 [facility] TDAP 2016-10-09 Completed [facility] 00:00:00 [facility] TDAP 2016-10-09 Completed [facility] 00:00:00 [facility] TDAP 2016-10-09 Completed [facility] 00:00:00 [facility] TDAP 2016-10-09 Completed [facility] 00:00:00 [facility] TDAP 2016-10-09 Completed [facility] 00:00:00 [facility] TDAP 2016-10-09 Completed [facility] 00[facility]00:00 [facility] TDAP 2016-10-09 Completed [facility] 00:00:00 [facility] TDAP 2016-10-09 Completed [facility] 00[facility]00:00 [facility] TDAP 2016-10-09 Completed [facility] 00:00:00 [facility] TDAP 2016-10-09 Completed [facility] 00:00:00 [facility] TDAP 2016-10-09 Completed [facility] 00[facility]00:00 [facility] TDAP 2016-10-09 Completed [facility] 00:00:00 [facility] TDAP 2016-10-09 Completed [facility] 00[facility]00:00 [facility] TDAP 2016-10-09 Completed [facility] 00:00:00 [facility] TDAP 2016-10-09 Completed [facility] 00[facility]00:00 [facility] TDAP 2016-10-09 Completed [facility] 00:00:00 [facility] TDAP 2016-10-09 Completed [facility] 00:00:00 [facility] TDAP 2016-10-09 Completed [facility] 00:00:00 [facility] TDAP 2016-10-09 Completed [facility] 00:00:00 [facility] TDAP 2016-10-09 Completed [facility] 00:00:00 [facility] TDAP 2016-10-09 Completed [facility] 00:00:00 [facility] TDAP 2016-10-09 Completed [facility] 00[facility]00:00 [facility] TDAP 2016-10-09 Completed [facility] 00[facility]00:00 [facility] TDAP 2016-10-09 Completed [facility] 00[facility]00:00 [facility] TDAP 2016-10-09 Completed [facility] 00[facility]00:00 [facility] TDAP 2016-10-09 Completed [facility] 00[facility]00:00 [facility] TDAP 2016-10-09 Completed [facility] 00[facility]00:00 [facility] TDAP 2016-10-09 Completed [facility] 00:00:00 [facility] TDAP 2016-10-09 Completed [facility] 00:00:00 [facility] TDAP 2016-10-09 Completed [facility] 00[facility]00:00 [facility] TDAP 2016-10-09 Completed [facility] 00:00:00 [facility] TDAP 2016-10-09 Completed [facility] 00:00:00 [facility] TDAP 2016-10-09 Completed [facility] 00[facility]00:00 [facility] TDAP 2016-10-09 Completed [facility] 00[facility]00:00 [facility] TDAP 2016-10-09 Completed [facility] 00:00:00 [facility] TDAP 2016-10-09 Completed [facility] 00[facility]00:00 [facility] TDAP 2016-10-09 Completed [facility] 00:00:00 [facility] TDAP 2016-10-09 Completed [facility] 00:00:00 [facility] TDAP 2016-10-09 Completed [facility] 00[facility]00:00 [facility] TDAP 2016-10-09 Completed [facility] 00[facility]00:00 [facility] TDAP 2016-10-09 Completed [facility] 00:00:00 [facility] TDAP 2016-10-09 Completed [facility] 00[facility]00:00 [facility] TDAP 2016-10-09 Completed [facility] 00[facility]00:00 [facility] TDAP 2016-10-09 Completed [facility] 00:00:00 [facility] TDAP 2016-10-09 Completed [facility] 00[facility]00:00 [facility] TDAP 2016-10-09 Completed [facility] 00[facility]00:00 [facility] TDAP 2016-10-09 Completed [facility] 00:00:00 [facility] TDAP 2016-10-09 Completed [facility] 00:00:00 [facility] TDAP 2016-10-09 Completed [facility] 00[facility]00:00 [facility] TDAP 2016-10-09 Completed [facility] 00[facility]00:00 [facility] TDAP 2016-10-09 Completed [facility] 00:00:00 [facility] TDAP 2016-10-09 Completed [facility] 00:00:00 [facility] TDAP 2016-10-09 Completed [facility] 00:00:00 [facility] TDAP 2016-10-09 Completed [facility] 00:00:00 [facility] TDAP 2016-10-09 Completed [facility] 00:00:00 [facility] TDAP 2016-10-09 Completed [facility] 00:00:00 [facility] TDAP 2016-10-09 Completed [facility] 00:00:00 [facility] TDAP 2016-10-09 Completed [facility] 00:00:00 [facility] TDAP 2016-10-09 Completed [facility] 00[facility]00:00 [facility] TDAP 2016-10-09 Completed [facility] 00:00:00 [facility] TDAP 2016-10-09 Completed [facility] 00:00:00 [facility] TDAP 2016-10-09 Completed [facility] 00:00:00 [facility] TDAP 2016-10-09 Completed [facility] 00:00:00 [facility] TDAP 2016-10-09 Completed [facility] 00[facility]00:00 [facility] TDAP 2016-10-09 Completed [facility] 00:00:00 [facility] TDAP 2016-10-09 Completed [facility] 00:00:00 [facility] TDAP 2016-10-09 Completed [facility] 00[facility]00:00 [facility] TDAP 2016-10-09 Completed [facility] 00[facility]00:00 [facility] TDAP 2016-10-09 Completed [facility] 00:00:00 [facility] TDAP 2016-10-09 Completed [facility] 00:00:00 [facility] TDAP 2016-10-09 Completed [facility] 00[facility]00:00 [facility] TDAP 2016-10-09 Completed [facility] 00:00:00 [facility] TDAP 2016-10-09 Completed [facility] 00[facility]00:00 [facility] TDAP 2016-10-09 Completed [facility] 00[facility]00:00 [facility] TDAP 2016-10-09 Completed [facility] 00:00:00 [facility] TDAP 2016-10-09 Completed [facility] 00:00:00 [facility] TDAP 2016-10-09 Completed [facility] 00:00:00 [facility] TDAP 2016-10-09 Completed [facility] 00:00:00 [facility] TDAP 2016-10-09 Completed [facility] 00:00:00 [facility] TDAP 2016-10-09 Completed [facility] 00:00:00 [facility] TDAP 2016-10-09 Completed [facility] 00[facility]00:00 [facility] TDAP 2016-10-09 Completed [facility] 00:00:00 [facility] TDAP 2016-10-09 Completed [facility] 00:00:00 [facility] TDAP 2016-10-09 Completed [facility] 00:00:00 [facility] TDAP 2016-10-09 Completed [facility] 00:00:00 [facility] TDAP 2016-10-09 Completed [facility] 00[facility]00:00 [facility] TDAP 2016-10-09 Completed [facility] 00[facility]00:00 [facility] TDAP 2016-10-09 Completed [facility] 00[facility]00:00 [facility] TDAP 2016-10-09 Completed [facility] 00[facility]00:00 [facility] TDAP 2016-10-09 Completed [facility] 00:00:00 [facility] Influenza Virus 2016-09-04 Completed [facility] Influenza Virus 2016-09-04 Completed [facility] 00:00:00 [facility] Influenza Virus 2016-09-04 Completed [facility] 00:00:00 [facility]dose 6[facility] Influenza Virus 2016-09-04 Completed [facility] 00:00:00 [facility] Multi[facility]dose 6[facility] MO [facility] Influenza Virus 2016-09-04 Completed [facility] 00:00:00 [facility]dose 6[facility] Influenza Virus 2016-09-04 Completed [facility] 00:00:00 [facility] Multi[facility]dose 6[facility] Influenza Virus 2016-09-04 Completed [facility] 00:00:00 [facility]dose 6[facility] MO [facility] Influenza Virus 2016-09-04 Completed [facility] 00:00:00 [facility] Multi[facility]dose 6[facility] Influenza Virus 2016-09-04 Completed [facility] 00:00:00 [facility]dose 6[facility] MO [facility] Influenza Virus 2016-09-04 Completed [facility] 00:00:00 [facility]dose 6[facility] Influenza Virus 2016-09-04 Completed [facility] 00:00:00 [facility]dose 6[facility] Influenza Virus 2016-09-04 Completed [facility] 00:00:00 [facility]dose 6[facility] Influenza Virus 2016-09-04 Completed [facility] 00:00:00 [facility] Multi[facility]dose 6[facility] Influenza Virus 2016-09-04 Completed [facility] 00:00:00 [facility]dose 6[facility] MO [facility] Influenza Virus 2016-09-04 Completed [facility] 00:00:00 [facility] Multi[facility]dose 6[facility] MO [facility] Influenza Virus 2016-09-04 Completed [facility] 00:00:00 [facility]dose 6[facility] Influenza Virus 2016-09-04 Completed [facility] 00:00:00 [facility]dose 6[facility] Influenza Virus 2016-09-04 Completed [facility] 00:00:00 [facility]dose 6[facility] MO [facility] Influenza Virus 2016-09-04 Completed [facility] 00:00:00 [facility]dose 6[facility] Influenza Virus 2016-09-04 Completed [facility] 00:00:00 [facility]dose 6[facility] Influenza Virus 2016-09-04 Completed [facility] 00:00:00 [facility] 6[facility] Influenza Virus 2016-09-04 Completed [facility] 00:00:00 [facility]dose 6[facility] Influenza Virus 2016-09-04 Completed [facility] 00:00:00 [facility]dose 6[facility] Influenza Virus 2016-09-04 Completed [facility] 00:00:00 [facility]dose 6[facility] MO [facility] Influenza Virus 2016-09-04 Completed [facility] 00:00:00 [facility] 6[facility] MO [facility] Influenza Virus 2016-09-04 Completed [facility] 00:00:00 [facility] Multi[facility]dose 6[facility] MO [facility] Influenza Virus 2016-09-04 Completed [facility] 00:00:00 [facility]dose 6[facility] MO [facility] Influenza Virus 2016-09-04 Completed [facility] 00:00:00 [facility]dose 6[facility] MO [facility] Influenza Virus 2016-09-04 Completed [facility] 00:00:00 [facility]dose 6[facility] MO [facility] Influenza Virus 2016-09-04 Completed [facility] 00:00:00 [facility]dose 6[facility] Influenza Virus 2016-09-04 Completed [facility] 00:00:00 [facility]dose 6[facility] MO [facility] Influenza Virus 2016-09-04 Completed [facility] 00:00:00 [facility] 6[facility] MO [facility] Influenza Virus 2016-09-04 Completed [facility] 00:00:00 [facility]dose 6[facility] Influenza Virus 2016-09-04 Completed [facility] 00:00:00 [facility] Multi[facility]dose 6[facility] Influenza Virus 2016-09-04 Completed [facility] 00:00:00 [facility]dose 6[facility] Influenza Virus 2016-09-04 Completed [facility] 00:00:00 [facility]dose 6[facility] Influenza Virus 2016-09-04 Completed [facility] 00:00:00 [facility] 6[facility] Influenza Virus 2016-09-04 Completed [facility] 00:00:00 [facility]dose 6[facility] Influenza Virus 2016-09-04 Completed [facility] 00:00:00 [facility]dose 6[facility] Influenza Virus 2016-09-04 Completed [facility] 00:00:00 [facility] 6[facility] Influenza Virus 2016-09-04 Completed [facility] 00:00:00 [facility] 6[facility] Influenza Virus 2016-09-04 Completed [facility] 00:00:00 [facility] 6[facility] Influenza Virus 2016-09-04 Completed [facility] 00:00:00 [facility] 6[facility] Influenza Virus 2016-09-04 Completed [facility] 00:00:00 [facility] 6[facility] Influenza Virus 2016-09-04 Completed [facility] 00:00:00 [facility] 6[facility] Influenza Virus 2016-09-04 Completed [facility] 00:00:00 [facility] 6[facility] Influenza Virus 2016-09-04 Completed [facility] 00:00:00 [facility] 6[facility] Influenza Virus 2016-09-04 Completed [facility] 00:00:00 [facility] 6[facility] Influenza Virus 2016-09-04 Completed [facility] 00:00:00 [facility] 6[facility] Influenza Virus 2016-09-04 Completed [facility] 00:00:00 [facility] 6[facility] Influenza Virus 2016-09-04 Completed [facility] 00:00:00 [facility] 6[facility] Influenza Virus 2016-09-04 Completed [facility] 00:00:00 [facility] 6[facility] Influenza Virus 2016-09-04 Completed [facility] 00:00:00 [facility] 6[facility] Influenza Virus 2016-09-04 Completed [facility] 00:00:00 [facility] 6[facility] Influenza Virus 2016-09-04 Completed [facility] 00:00:00 [facility] 6[facility] Influenza Virus 2016-09-04 Completed [facility] 00:00:00 [facility] 6[facility] Influenza Virus 2016-09-04 Completed [facility] 00:00:00 [facility] 6[facility] Influenza Virus 2016-09-04 Completed [facility] 00:00:00 [facility] 6[facility] Influenza Virus 2016-09-04 Completed [facility] 00:00:00 [facility] 6[facility] Influenza Virus 2016-09-04 Completed [facility] 00:00:00 [facility] 6[facility] Influenza Virus 2016-09-04 Completed [facility] 00:00:00 [facility] 6[facility] Influenza Virus 2016-09-04 Completed [facility] 00:00:00 [facility] 6[facility] Influenza Virus 2016-09-04 Completed [facility] 00:00:00 [facility] 6[facility] Influenza Virus 2016-09-04 Completed [facility] 00:00:00 [facility] 6[facility] Influenza Virus 2016-09-04 Completed [facility] 00:00:00 [facility] 6[facility] Influenza Virus 2016-09-04 Completed [facility] 00:00:00 [facility] 6[facility] Influenza Virus 2016-09-04 Completed [facility] 00:00:00 [facility] 6[facility] Influenza Virus 2016-09-04 Completed [facility] 00:00:00 [facility] 6[facility] Influenza Virus 2016-09-04 Completed [facility] 00:00:00 [facility] 6[facility] Influenza Virus 2016-09-04 Completed [facility] 00:00:00 [facility] 6[facility] Influenza Virus 2016-09-04 Completed [facility] 00:00:00 [facility] 6[facility] Influenza Virus 2016-09-04 Completed [facility] 00:00:00 [facility] 6[facility] Influenza Virus 2016-09-04 Completed [facility] 00:00:00 [facility] 6[facility] Influenza Virus 2016-09-04 Completed [facility] 00:00:00 [facility] 6[facility] Influenza Virus 2016-09-04 Completed [facility] 00:00:00 [facility] 6[facility] Influenza Virus 2016-09-04 Completed [facility] 00:00:00 [facility] 6[facility] Influenza Virus 2016-09-04 Completed [facility] 00:00:00 [facility] 6[facility] Influenza Virus 2016-09-04 Completed [facility] 00:00:00 [facility] 6[facility] Influenza Virus 2016-09-04 Completed [facility] 00:00:00 [facility] 6[facility] Influenza Virus 2016-09-04 Completed [facility] 00:00:00 [facility] 6[facility] Influenza Virus 2016-09-04 Completed [facility] 00:00:00 [facility] 6[facility] Influenza Virus 2016-09-04 Completed [facility] 00:00:00 [facility] 6[facility] Influenza Virus 2016-09-04 Completed [facility] 00:00:00 [facility] 6[facility] Influenza Virus 2016-09-04 Completed [facility] 00:00:00 [facility] 6[facility] Influenza Virus 2016-09-04 Completed [facility] 00:00:00 [facility] Influenza Virus 2016-09-04 Completed [facility] 00:00:00 [facility] 6[facility] Influenza Virus 2016-09-04 Completed [facility] 00:00:00 [facility] 6[facility] Influenza Virus 2016-09-04 Completed [facility] 00:00:00 [facility] 6[facility] Influenza Virus 2016-09-04 Completed [facility] 00:00:00 [facility] 6[facility] Influenza Virus 2016-09-04 Completed [facility] 00:00:00 [facility] Influenza Virus 2016-09-04 Completed [facility] 00:00:00 [facility] Influenza Virus 2016-09-04 Completed [facility] 00:00:00 [facility] Influenza Virus 2016-09-04 Completed [facility] 00:00:00 [facility] 6[facility] Influenza Virus 2016-09-04 Completed [facility] 00:00:00 [facility] 6[facility] Influenza Virus 2016-09-04 Completed [facility] 00:00:00 [facility] 6[facility] Influenza Virus 2016-09-04 Completed [facility] 00:00:00 [facility] Influenza Virus 2016-09-04 Completed [facility] 00:00:00 [facility] 6[facility] Influenza Virus 2016-09-04 Completed [facility] 00:00:00 [facility] Influenza Virus 2016-09-04 Completed [facility] 00:00:00 [facility] 6[facility] Influenza Virus 2016-09-04 Completed [facility] 00:00:00 [facility] Influenza Virus 2016-09-04 Completed [facility] 00:00:00 [facility] Influenza Virus 2016-09-04 Completed [facility] 00:00:00 [facility] Influenza Virus 2016-09-04 Completed [facility] 00:00:00 [facility] Influenza Virus 2016-09-04 Completed [facility] 00:00:00 [facility] Influenza Virus 2016-09-04 Completed [facility] 00:00:00 [facility] Influenza Virus 2016-09-04 Completed [facility] 00:00:00 [facility] Influenza Virus 2016-09-04 Completed [facility] 00:00:00 [facility] Influenza Virus 2016-09-04 Completed [facility] 00:00:00 [facility] Influenza Virus 2015-08-23 Completed [facility] 00:00:00 [facility] Influenza Virus 2015-08-23 Completed [facility] 00:00:00 [facility] 18-64 Y[facility] Influenza Virus 2015-08-23 Completed [facility] 00:00:00 [facility] 18-64 Y[facility] Influenza Virus 2015-08-23 Completed [facility] 00:00:00 [facility] 18-64 Y[facility] Influenza Virus 2015-08-23 Completed [facility] 00:00:00 [facility] 18-64 Y[facility] Influenza Virus 2015-08-23 Completed [facility] 00:00:00 [facility] 18-64 Y[facility] Influenza Virus 2015-08-23 Completed [facility] 00:00:00 [facility] 18-64 Y[facility] Influenza Virus 2015-08-23 Completed [facility] 00:00:00 [facility] 18[facility] Influenza Virus 2015-08-23 Completed [facility] 00:00:00 [facility] 18-64 Y[facility] Influenza Virus 2015-08-23 Completed [facility] 00:00:00 [facility] 18-[facility] Influenza Virus 2015-08-23 Completed [facility] 00:00:00 [facility] 18-64 Y[facility] Influenza Virus 2015-08-23 Completed [facility] 00[facility]00:00 [facility] ical 18-64 YRS Branch Influenza Virus 2015-08-23 Completed [facility] 00:00:00 [facility] 18-64 Y[facility] Influenza Virus 2015-08-23 Completed [facility] 00:00:00 [facility] 18-64 Y[facility] Influenza Virus 2015-08-23 Completed [facility] 00:00:00 [facility] 18-64 Y[facility] Influenza Virus 2015-08-23 Completed [facility] 00:00:00 [facility] 18-64 Y[facility] Influenza Virus 2015-08-23 Completed [facility] 00:00:00 [facility] 18-64 Y[facility] Influenza Virus 2015-08-23 Completed [facility] 00:00:00 [facility] 18-64 [facility] Influenza Virus 2015-08-23 Completed [facility] 00:00:00 [facility] 18-64 Y[facility] Influenza Virus 2015-08-23 Completed [facility] 00:00:00 [facility] 18-64 Y[facility] Influenza Virus 2015-08-23 Completed [facility] 00:00:00 [facility] 18-64 [facility] Influenza Virus 2015-08-23 Completed [facility] 00:00:00 [facility] 18-64 Y[facility] Influenza Virus 2015-08-23 Completed [facility] 00:00:00 [facility] 18-[facility] Influenza Virus 2015-08-23 Completed [facility] 00:00:00 [facility] 18-64 Y[facility] Influenza Virus 2015-08-23 Completed [facility] 00:00:00 [facility] ical 18-64 YRS Branch Influenza Virus 2015-08-23 Completed [facility] 00:00:00 [facility] ical 18-64 YRS Branch Influenza Virus 2015-08-23 Completed [facility] 00:00:00 [facility] ical 18-64 YRS Branch Influenza Virus 2015-08-23 Completed [facility] 00:00:00 [facility] ical 18-64 YRS Branch Influenza Virus 2015-08-23 Completed [facility] 00:00:00 [facility] ical 18-64 YRS Branch Influenza Virus 2015-08-23 Completed [facility] 00:00:00 [facility] ical 18-64 YRS Branch Influenza Virus 2015-08-23 Completed [facility] 00:00:00 [facility] ical 18-64 YRS Branch Influenza Virus 2015-08-23 Completed [facility] 00:00:00 [facility] 18-[facility] Influenza Virus 2015-08-23 Completed [facility] 00:00:00 [place] [facility] 18-64 Y[facility] Influenza Virus 2015-08-23 Completed [facility] 00:00:00 [facility] 18-64 Y[facility] Influenza Virus 2015-08-23 Completed [facility] 00:00:00 [facility] 18-64 Y[facility] Influenza Virus 2015-08-23 Completed [facility] 00:00:00 [facility] ical 18-64 YRS Branch Influenza Virus 2015-08-23 Completed [facility] 00:00:00 [facility] 18-64 Y[facility] Influenza Virus 2015-08-23 Completed [facility] 00:00:00 [facility] 18-64 Y[facility] Influenza Virus 2015-08-23 Completed [facility] 00:00:00 [facility] 18-64 Y[facility] Influenza Virus 2015-08-23 Completed [facility] 00:00:00 [facility] 18-64 Y[facility] Influenza Virus 2015-08-23 Completed [facility] 00:00:00 [facility] 18-64 Y[facility] Influenza Virus 2015-08-23 Completed [facility] 00:00:00 [facility] 18-64 Y[facility] Influenza Virus 2015-08-23 Completed [facility] 00:00:00 [facility] ical 18-64 YRS Branch Influenza Virus 2015-08-23 Completed [facility] 00:00:00 [facility] ical 18-64 YRS Branch Influenza Virus 2015-08-23 Completed [facility] 00:00:00 [facility] ical 18-64 YRS Branch Influenza Virus 2015-08-23 Completed [facility] 00:00:00 [facility] 18-[facility] Influenza Virus 2015-08-23 Completed [facility] 00:00:00 [facility] ical 18-64 YRS Branch Influenza Virus 2015-08-23 Completed [facility] 00:00:00 [facility] ical 18-64 YRS Branch Influenza Virus 2015-08-23 Completed [facility] 00:00:00 [facility] 18-[facility] Influenza Virus 2015-08-23 Completed [facility] 00:00:00 [place] [facility] 18-64 Y[facility] Influenza Virus 2015-08-23 Completed [facility] 00:00:00 [place] [facility] 18-64 Y[facility] Influenza Virus 2015-08-23 Completed [facility] 00:00:00 [facility] 18-64 Y[facility] Influenza Virus 2015-08-23 Completed [facility] 00:00:00 [facility] 18-[facility] Y[facility] Influenza Virus 2015-08-23 Completed [facility] 00:00:00 [facility] 18-[facility] Y[facility] Influenza Virus 2015-08-23 Completed [facility] [place] [facility] Influenza Virus 2015-08-23 Completed [facility] 00:00:00 [place] [facility] Influenza Virus 2015-08-23 Completed [facility] 00:00:00 [place] [facility] Y[facility] Influenza Virus 2015-08-23 Completed [facility] 00:00:00 [place] [facility] Y[facility] Influenza Virus 2015-08-23 Completed [facility] 00:00:00 [place] [facility] Y[facility] Influenza Virus 2015-08-23 Completed [facility] 00:00:00 [place] [facility] 18-[facility] Y[facility] Influenza Virus 2015-08-23 Completed [facility] 00:00:00 [facility] Y[facility] Influenza Virus 2015-08-23 Completed [facility] 00:00:00 [facility] Y[facility] Influenza Virus 2015-08-23 Completed [facility] 00:00:00 [place] [facility] Y[facility] Influenza Virus 2015-08-23 Completed [facility] 00:00:00 [facility] Y[facility] Influenza Virus 2015-08-23 Completed [facility] 00:00:00 [facility] Y[facility] Influenza Virus 2015-08-23 Completed [facility] 00:00:00 [facility] Y[facility] Influenza Virus 2015-08-23 Completed [facility] 00:00:00 [facility] Y[facility] Influenza Virus 2015-08-23 Completed [facility] 00:00:00 [place] [facility] Y[facility] Influenza Virus 2015-08-23 Completed [facility] 00:00:00 [place] [facility] 18-64 Y[facility] Influenza Virus 2015-08-23 Completed [facility] 00:00:00 [facility] 18-[facility] Y[facility] Influenza Virus 2015-08-23 Completed [facility] 00:00:00 [place] [facility] Y[facility] Influenza Virus 2015-08-23 Completed [facility] 00:00:00 [facility] Y[facility] Influenza Virus 2015-08-23 Completed [facility] 00:00:00 [place] [facility] Y[facility] Influenza Virus 2015-08-23 Completed [facility] 00:00:00 [place] [facility] Y[facility] Influenza Virus 2015-08-23 Completed [facility] 00:00:00 [place] [facility] Y[facility] Influenza Virus 2015-08-23 Completed [facility] 00:00:00 [place] [facility] Y[facility] Influenza Virus 2015-08-23 Completed [facility] 00:00:00 [place] [facility] Y[facility] Influenza Virus 2015-08-23 Completed [facility] 00:00:00 [facility] Y[facility] Influenza Virus 2015-08-23 Completed [facility] 00:00:00 [place] [facility] 18[facility] Y[facility] Influenza Virus 2015-08-23 Completed [facility] 00:00:00 [facility] Y[facility] Influenza Virus 2015-08-23 Completed [facility] 00:00:00 [place] [facility] 18-[facility] Y[facility] Influenza Virus 2015-08-23 Completed [facility] 00:00:00 [place] [facility] Y[facility] Influenza Virus 2015-08-23 Completed [facility] 00:00:00 [place] [facility] Y[facility] Influenza Virus 2015-08-23 Completed [facility] 00:00:00 [place] [facility] Y[facility] Influenza Virus 2015-08-23 Completed [facility] 00:00:00 [place] [facility] Y[facility] Influenza Virus 2015-08-23 Completed [facility] 00:00:00 [place] [facility] Y[facility] Influenza Virus 2015-08-23 Completed [facility] 00:00:00 [place] [facility] Y[facility] Influenza Virus 2015-08-23 Completed [facility] 00:00:00 [place] [facility] Y[facility] Influenza Virus 2015-08-23 Completed [facility] 00:00:00 [place] [facility] Y[facility] Influenza Virus 2015-08-23 Completed [facility] 00:00:00 [place] [facility] Y[facility] Influenza Virus 2015-08-23 Completed [facility] 00:00:00 [place] [facility] Y[facility] Influenza Virus 2015-08-23 Completed [facility] 00:00:00 [place] [facility] Y[facility] Influenza Virus 2015-08-23 Completed [facility] 00:00:00 [place] [facility] Y[facility] Influenza Virus 2015-08-23 Completed [facility] 00:00:00 [place] [facility] 18-[facility] Y[facility] Influenza Virus 2015-08-23 Completed [facility] 00:00:00 [place] [facility] 18[facility] Y[facility] Influenza Virus 2015-08-23 Completed [facility] 00:00:00 [facility] ical 18-64 YRS Branch Influenza Virus 2015-08-23 Completed [facility] 00:00:00 [place] [facility] 18-[facility] Y[facility] Influenza Virus 2015-08-23 Completed [facility] 00:00:00 [place] [facility] ical 18-64 YRS Branch Influenza Virus 2015-08-23 Completed [facility] 00:00:00 [facility] ical 18-64 YRS Branch Influenza Virus 2015-08-23 Completed [facility] 00:00:00 [place] [facility] Y[facility] Influenza Virus 2015-08-23 Completed [facility] 00:00:00 [place] [facility] Y[facility] Influenza Virus 2015-08-23 Completed [facility] 00:00:00 [place] [facility] Y[facility] Influenza Virus 2015-08-23 Completed [facility] 00:00:00 [place] [facility] 18-[facility] Y[facility] Influenza Virus 2015-08-23 Completed [facility] 00:00:00 [place] [facility] Y[facility] Influenza Virus 2015-08-23 Completed [facility] 00:00:00 [facility] ical 18-64 YRS Branch Influenza Virus 2015-08-23 Completed [facility] 00:00:00 [facility] Influ[facility] Virus 2015-08-23 Completed [facility] 00:00:00 [facility] 18-64 YRS Branch Influenza Virus 2015-08-23 Completed [facility] 00:00:00 [facility] 18-64 YRS Branch Influenza Virus 2014-08-14 Completed [facility] Vaccine (3+ yrs) 00:00:00 [facility] Influenza Virus 2014-08-14 Completed [facility] Vaccine (3+ yrs) 00:00:00 [facility] Influenza Virus 2014-08-14 Completed [facility] Vaccine (3+ yrs) 00:00:00 [facility] Influenza Virus 2014-08-14 Completed [facility] Vaccine (3+ yrs) 00:00:00 [facility] Influenza Virus 2014-08-14 Completed [facility] Vaccine (3+ yrs) 00:00:00 [facility] Influenza Virus 2014-08-14 Completed [facility] Vaccine (3+ yrs) 00:00:00 [facility] Influenza Virus 2014-08-14 Completed [facility] Vaccine (3+ yrs) 00:00:00 [facility] Influenza Virus 2014-08-14 Completed [facility] Vaccine (3+ yrs) 00:00:00 [facility] Influenza Virus 2014-08-14 Completed [facility] Vaccine (3+ yrs) 00:00:00 [facility] Influenza Virus 2014-08-14 Completed [facility] Vaccine (3+ yrs) 00:00:00 [facility] Influenza Virus 2014-08-14 Completed [facility] Vaccine (3+ yrs) 00:00:00 [facility] Influenza Virus 2014-08-14 Completed [facility] Vaccine (3+ yrs) 00:00:00 [facility] Influenza Virus 2014-08-14 Completed [facility] Vaccine (3+ yrs) 00:00:00 [facility] Influenza Virus 2014-08-14 Completed [facility] Vaccine (3+ yrs) 00:00:00 [facility] Influenza Virus 2014-08-14 Completed [facility] Vaccine (3+ yrs) 00:00:00 [facility] Influenza Virus 2014-08-14 Completed [facility] Vaccine (3+ yrs) 00:00:00 [facility] Influenza Virus 2014-08-14 Completed [facility] Vaccine (3+ yrs) 00:00:00 [facility] Influenza Virus 2014-08-14 Completed [facility] Vaccine (3+ yrs) 00:00:00 [facility] Influenza Virus 2014-08-14 Completed [facility] Vaccine (3+ yrs) 00:00:00 [facility] Influenza Virus 2014-08-14 Completed [facility] Vaccine (3+ yrs) 00:00:00 [facility] Influenza Virus 2014-08-14 Completed [facility] Vaccine (3+ yrs) 00:00:00 [facility] Branch Influenza Virus 2014-08-14 Completed [facility] Vaccine (3+ yrs) 00:00:00 [facility] Influenza Virus 2014-08-14 Completed [facility] Vaccine (3+ yrs) 00:00:00 [facility] Influenza Virus 2014-08-14 Completed [facility] Vaccine (3+ yrs) 00:00:00 [facility] Influenza Virus 2014-08-14 Completed [facility] Vaccine (3+ yrs) 00:00:00 [facility] Influenza Virus 2014-08-14 Completed [facility] Vaccine (3+ yrs) 00:00:00 [facility] Influenza Virus 2014-08-14 Completed [facility] Vaccine (3+ yrs) 00:00:00 [facility] Influenza Virus 2014-08-14 Completed [facility] Vaccine (3+ yrs) 00:00:00 [facility] Influenza Virus 2014-08-14 Completed [facility] Vaccine (3+ yrs) 00:00:00 [facility] Influenza Virus 2014-08-14 Completed [facility] Vaccine (3+ yrs) 00:00:00 [facility] Influenza Virus 2014-08-14 Completed [facility] Vaccine (3+ yrs) 00:00:00 [facility] Influenza Virus 2014-08-14 Completed [facility] Vaccine (3+ yrs) 00:00:00 [facility] Influenza Virus 2014-08-14 Completed [facility] Vaccine (3+ yrs) 00:00:00 [facility] Influenza Virus 2014-08-14 Completed [facility] Vaccine (3+ yrs) 00:00:00 [facility] Branch Influenza Virus 2014-08-14 Completed [facility] Vaccine (3+ yrs) 00:00:00 [facility] Branch Influenza Virus 2014-08-14 Completed [facility] Vaccine (3+ yrs) 00:00:00 [facility] Branch Influenza Virus 2014-08-14 Completed [facility] Vaccine (3+ yrs) 00:00:00 [facility] Influenza Virus 2014-08-14 Completed [facility] Vaccine (3+ yrs) 00:00:00 [facility] Branch Influenza Virus 2014-08-14 Completed [facility] Vaccine (3+ yrs) 00:00:00 [facility] Influenza Virus 2014-08-14 Completed [facility] Vaccine (3+ yrs) 00:00:00 [facility] Influenza Virus 2014-08-14 Completed [facility] Vaccine (3+ yrs) 00:00:00 [facility] Influenza Virus 2014-08-14 Completed [facility] Vaccine (3+ yrs) 00:00:00 [facility] Influenza Virus 2014-08-14 Completed [facility] Vaccine (3+ yrs) 00:00:00 [facility] Influenza Virus 2014-08-14 Completed [facility] Vaccine (3+ yrs) 00:00:00 [facility] Influenza Virus 2014-08-14 Completed [facility] Vaccine (3+ yrs) 00:00:00 [facility] Influenza Virus 2014-08-14 Completed [facility] Vaccine (3+ yrs) 00:00:00 [facility] Influenza Virus 2014-08-14 Completed [facility] Vaccine (3+ yrs) 00:00:00 [facility] Branch Influenza Virus 2014-08-14 Completed [facility] Vaccine (3+ yrs) 00:00:00 [facility] Influenza Virus 2014-08-14 Completed [facility] Vaccine (3+ yrs) 00:00:00 [facility] Influenza Virus 2014-08-14 Completed [facility] Vaccine (3+ yrs) 00:00:00 [facility] Influenza Virus 2014-08-14 Completed [facility] Vaccine (3+ yrs) 00:00:00 [facility] Influenza Virus 2014-08-14 Completed [facility] Vaccine (3+ yrs) 00:00:00 [facility] Influenza Virus 2014-08-14 Completed [facility] Vaccine (3+ yrs) 00:00:00 [facility] Influenza Virus 2014-08-14 Completed [facility] Vaccine (3+ yrs) 00:00:00 [facility] Influenza Virus 2014-08-14 Completed [facility] Vaccine (3+ yrs) 00:00:00 [facility] Influenza Virus 2014-08-14 Completed [facility] Vaccine (3+ yrs) 00:00:00 [facility] Branch Influenza Virus 2014-08-14 Completed [facility] Vaccine (3+ yrs) 00:00:00 [facility] Influenza Virus 2014-08-14 Completed [facility] Vaccine (3+ yrs) 00:00:00 [facility] Influenza Virus 2014-08-14 Completed [facility] Vaccine (3+ yrs) 00:00:00 [facility] Influenza Virus 2014-08-14 Completed [facility] Vaccine (3+ yrs) 00:00:00 [facility] Influenza Virus 2014-08-14 Completed [facility] Vaccine (3+ yrs) 00:00:00 [facility] Influenza Virus 2014-08-14 Completed [facility] Vaccine (3+ yrs) 00:00:00 [facility] Influenza Virus 2014-08-14 Completed [facility] Vaccine (3+ yrs) 00:00:00 [facility] Influenza Virus 2014-08-14 Completed [facility] Vaccine (3+ yrs) 00:00:00 [facility] Influenza Virus 2014-08-14 Completed [facility] Vaccine (3+ yrs) 00:00:00 [facility] Branch Influenza Virus 2014-08-14 Completed [facility] Vaccine (3+ yrs) 00:00:00 [facility] Influenza Virus 2014-08-14 Completed [facility] Vaccine (3+ yrs) 00:00:00 [facility] Influenza Virus 2014-08-14 Completed [facility] Vaccine (3+ yrs) 00:00:00 [facility] Influenza Virus 2014-08-14 Completed [facility] Vaccine (3+ yrs) 00:00:00 [facility] Influenza Virus 2014-08-14 Completed [facility] Vaccine (3+ yrs) 00:00:00 [facility] Branch Influenza Virus 2014-08-14 Completed [facility] Vaccine (3+ yrs) 00:00:00 [facility] Branch Influenza Virus 2014-08-14 Completed [facility] Vaccine (3+ yrs) 00:00:00 [facility] Influenza Virus 2014-08-14 Completed [facility] Vaccine (3+ yrs) 00:00:00 [facility] Influenza Virus 2014-08-14 Completed [facility] Vaccine (3+ yrs) 00:00:00 [facility] Branch Influenza Virus 2014-08-14 Completed [facility] Vaccine (3+ yrs) 00:00:00 [facility] Influenza Virus 2014-08-14 Completed [facility] Vaccine (3+ yrs) 00:00:00 [facility] Influenza Virus 2014-08-14 Completed [facility] Vaccine (3+ yrs) 00:00:00 [facility] Influenza Virus 2014-08-14 Completed [facility] Vaccine (3+ yrs) 00:00:00 [facility] Influenza Virus 2014-08-14 Completed [facility] Vaccine (3+ yrs) 00:00:00 [facility] Influenza Virus 2014-08-14 Completed [facility] Vaccine (3+ yrs) 00:00:00 [facility] Influenza Virus 2014-08-14 Completed [facility] Vaccine (3+ yrs) 00:00:00 [facility] Influenza Virus 2014-08-14 Completed [facility] Vaccine (3+ yrs) 00:00:00 [facility] Influenza Virus 2014-08-14 Completed [facility] Vaccine (3+ yrs) 00:00:00 [facility] d[facility] Branch Influenza Virus 2014-08-14 Completed [facility] Vaccine (3+ yrs) 00:00:00 [facility] Influenza Virus 2014-08-14 Completed [facility] Vaccine (3+ yrs) 00:00:00 [facility] Branch Influenza Virus 2014-08-14 Completed [facility] Vaccine (3+ yrs) 00:00:00 [facility] Branch Influenza Virus 2014-08-14 Completed [facility] Vaccine (3+ yrs) 00:00:00 [facility] Influenza Virus 2014-08-14 Completed [facility] Vaccine (3+ yrs) 00:00:00 [facility] Influenza Virus 2014-08-14 Completed [facility] Vaccine (3+ yrs) 00:00:00 [facility] Influenza Virus 2014-08-14 Completed [facility] Vaccine (3+ yrs) 00:00:00 [facility] Influenza Virus 2014-08-14 Completed [facility] Vaccine (3+ yrs) 00:00:00 [facility] Influenza Virus 2014-08-14 Completed [facility] Vaccine (3+ yrs) 00:00:00 [facility] Influenza Virus 2014-08-14 Completed [facility] Vaccine (3+ yrs) 00:00:00 [facility] Influenza Virus 2014-08-14 Completed [facility] of Vaccine (3+ yrs) 00:00:00 [facility] Influenza Virus 2014-08-14 Completed [facility] Vaccine (3+ yrs) 00:00:00 [facility] Influenza Virus 2014-08-14 Completed [facility] Vaccine (3+ yrs) 00:00:00 [facility] Influenza Virus 2014-08-14 Completed [facility] Vaccine (3+ yrs) 00:00:00 [facility] Influenza Virus 2014-08-14 Completed [facility] of Vaccine (3+ yrs) 00:00:00 [facility] Influenza Virus 2014-08-14 Completed [facility] Vaccine (3+ yrs) 00:00:00 [facility] Influenza Virus 2014-08-14 Completed [facility] Vaccine (3+ yrs) 00:00:00 [facility] Influenza Virus 2014-08-14 Completed [facility] Vaccine (3+ yrs) 00:00:00 [facility] Influenza Virus 2014-08-14 Completed [facility] Vaccine (3+ yrs) 00:00:00 [facility] Influenza Virus 2014-08-14 Completed [facility] Vaccine (3+ yrs) 00:00:00 [facility] Influenza Virus 2014-08-14 Completed [facility] Vaccine (3+ yrs) 00:00:00 [facility] Influenza Virus 2014-08-14 Completed [facility] Vaccine (3+ yrs) 00:00:00 [facility] Influenza Virus 2014-08-14 Completed [facility] Vaccine (3+ yrs) 00:00:00 [facility] Influenza Virus 2014-08-14 Completed [facility] Vaccine (3+ yrs) 00:00:00 [facility] Influenza Virus 2014-08-14 Completed [facility] Vaccine (3+ yrs) 00:00:00 [facility] Influenza Virus 2013-08-08 Completed [facility] Vaccine 00:00:00 [facility] Influenza Virus 2013-08-08 Completed [facility] Vaccine 00:00:00 [facility] Influenza Virus 2013-08-08 Completed [facility] Vaccine 00:00:00 [facility] Influenza Virus 2013-08-08 Completed [facility] Vaccine 00:00:00 [facility] Influenza Virus 2013-08-08 Completed [facility] Vaccine 00:00:00 [facility] Influenza Virus 2013-08-08 Completed [facility] Vaccine 00:00:00 [facility] Influenza Virus 2013-08-08 Completed [facility] Vaccine 00:00:00 [facility] Influenza Virus 2013-08-08 Completed [facility] Vaccine 00:00:00 [facility] Influenza Virus 2013-08-08 Completed [facility] Vaccine 00:00:00 [facility] Influenza Virus 2013-08-08 Completed [facility] Vaccine 00:00:00 [facility] Influenza Virus 2013-08-08 Completed [facility] Vaccine 00:00:00 [facility] Influenza Virus 2013-08-08 Completed [facility] Vaccine 00:00:00 [facility] Influenza Virus 2013-08-08 Completed [facility] Vaccine 00:00:00 [facility] Influenza Virus 2013-08-08 Completed [facility] Vaccine 00:00:00 [facility] Influenza Virus 2013-08-08 Completed [facility] Vaccine 00:00:00 [facility] Influenza Virus 2013-08-08 Completed [facility] Vaccine 00:00:00 [facility] Influenza Virus 2013-08-08 Completed [facility] Vaccine 00:00:00 [facility] Influenza Virus 2013-08-08 Completed [facility] Vaccine 00:00:00 [facility] Influenza Virus 2013-08-08 Completed [facility] Vaccine 00:00:00 [facility] Influenza Virus 2013-08-08 Completed [facility] Vaccine 00:00:00 [facility] Influenza Virus 2013-08-08 Completed [facility] Vaccine 00:00:00 [facility] Influenza Virus 2013-08-08 Completed [facility] of Vaccine 00:00:00 [facility] Influenza Virus 2013-08-08 Completed [facility] of Vaccine 00:00:00 [facility] Influenza Virus 2013-08-08 Completed [facility] Vaccine 00:00:00 [facility] Influenza Virus 2013-08-08 Completed [facility] Vaccine 00:00:00 [facility] Influenza Virus 2013-08-08 Completed [facility] Vaccine 00:00:00 [facility] Influenza Virus 2013-08-08 Completed [facility] of Vaccine 00:00:00 [facility] Influenza Virus 2013-08-08 Completed [facility] of Vaccine 00:00:00 [facility] Influenza Virus 2013-08-08 Completed [facility] Vaccine 00:00:00 [facility] Influenza Virus 2013-08-08 Completed [facility] of Vaccine 00:00:00 [facility] Influenza Virus 2013-08-08 Completed [facility] of Vaccine 00:00:00 [facility] Influenza Virus 2013-08-08 Completed [facility] of Vaccine 00:00:00 [facility] Influenza Virus 2013-08-08 Completed [facility] of Vaccine 00:00:00 [facility] Influenza Virus 2013-08-08 Completed [facility] Vaccine 00:00:00 [facility] Influenza Virus 2013-08-08 Completed [facility] Vaccine 00:00:00 [facility] Influenza Virus 2013-08-08 Completed [facility] of Vaccine 00:00:00 [facility] Influenza Virus 2013-08-08 Completed [facility] Vaccine 00:00:00 [facility] Influenza Virus 2013-08-08 Completed [facility] Vaccine 00:00:00 [facility] Influenza Virus 2013-08-08 Completed [facility] Vaccine 00:00:00 [facility] Influenza Virus 2013-08-08 Completed [facility] Vaccine 00:00:00 [facility] Influenza Virus 2013-08-08 Completed [facility] Vaccine 00:00:00 [facility] Influenza Virus 2013-08-08 Completed [facility] Vaccine 00:00:00 [facility] Influenza Virus 2013-08-08 Completed [facility] of Vaccine 00:00:00 [facility] Influenza Virus 2013-08-08 Completed [facility] Vaccine 00:00:00 [facility] Influenza Virus 2013-08-08 Completed [facility] Vaccine 00:00:00 [facility] Influenza Virus 2013-08-08 Completed [facility] Vaccine 00:00:00 [facility] Influenza Virus 2013-08-08 Completed [facility] Vaccine 00:00:00 [facility] Influenza Virus 2013-08-08 Completed [facility] Vaccine 00:00:00 [facility] Influenza Virus 2013-08-08 Completed [facility] Vaccine 00:00:00 [facility] Influenza Virus 2013-08-08 Completed [facility] Vaccine 00:00:00 [facility] Influenza Virus 2013-08-08 Completed [facility] Vaccine 00:00:00 [facility] Influenza Virus 2013-08-08 Completed [facility] Vaccine 00:00:00 [facility] Influenza Virus 2013-08-08 Completed [facility] of Vaccine 00:00:00 [facility] Influenza Virus 2013-08-08 Completed [facility] of Vaccine 00:00:00 [facility] Influenza Virus 2013-08-08 Completed [facility] Vaccine 00:00:00 [facility] Influenza Virus 2013-08-08 Completed [facility] Vaccine 00:00:00 [facility] Influenza Virus 2013-08-08 Completed [facility] Vaccine 00:00:00 [facility] Influenza Virus 2013-08-08 Completed [facility] Vaccine 00:00:00 [facility] Influenza Virus 2013-08-08 Completed [facility]ine 00:00:00 [facility] [facility] 2013[facility]08-08 [facility]00 [facility] Influenza Virus 2013-08-08 Completed [facility]00[facility]00 [facility] Influenza Virus 2013-08-08 Completed [facility] 00[facility]00:00 [facility] Influenza Virus 2013-08-08 Completed [facility] 00[facility]00:00 [facility] Influenza Virus 2013-08-08 Completed [facility] 00:00:00 [facility] Influenza Virus 2013-08-08 Completed [facility] 00:00:00 [facility] Influenza Virus 2013-08-08 Completed [facility] 00:00:00 [facility] Influenza Virus 2013-08-08 Completed [facility] 00:00:00 [facility] Influenza Virus 2013-08-08 Completed [facility] 00:00:00 [facility] Influenza Virus 2013-08-08 Completed [facility] 00:00:00 [facility] Influenza Virus 2013-08-08 Completed [facility] 00:00:00 [facility] Influenza Virus 2013-08-08 Completed [facility] 00:00:00 [facility] Influenza Virus 2013-08-08 Completed [facility] 00:00:00 [facility] Influenza Virus 2013-08-08 Completed [facility] 00:00:00 [facility] Influenza Virus 2013-08-08 Completed [facility] 00:00:00 [facility] Influenza Virus 2013-08-08 Completed [facility] 00:00:00 [facility] Influenza Virus 2013-08-08 Completed [facility] 00:00:00 [facility] Influenza Virus 2013-08-08 Completed [facility] 00:00:00 [facility] Influenza Virus 2013-08-08 Completed [facility] 00:00:00 [facility] Influenza Virus 2013-08-08 Completed [facility] 00:00:00 [facility] Influenza Virus 2013-08-08 Completed [facility] 00:00:00 [facility] Influenza Virus 2013-08-08 Completed [facility] 00:00:00 [facility] Influenza Virus 2013-08-08 Completed [facility] 00:00:00 [facility] Influenza Virus 2013-08-08 Completed [facility] 00:00:00 [facility] Influenza Virus 2013-08-08 Completed [facility] 00:00:00 [facility] Influenza Virus 2013-08-08 Completed [facility] 00:00:00 [facility] Influenza Virus 2013-08-08 Completed [facility] 00:00:00 [facility] Influenza Virus 2013-08-08 Completed [facility] 00:00:00 [facility] Influenza Virus 2013-08-08 Completed [facility] 00:00:00 [facility] Influenza Virus 2013-08-08 Completed [facility] 00:00:00 [facility] Influenza Virus 2013-08-08 Completed [facility] 00:00:00 [facility] Influenza Virus 2013-08-08 Completed [facility] 00:00:00 [facility] Influenza Virus 2013-08-08 Completed [facility] 00:00:00 [facility] Influenza Virus 2013-08-08 Completed [facility] 00:00:00 [facility] Influenza Virus 2013-08-08 Completed [facility] 00:00:00 [facility] Influenza Virus 2013-08-08 Completed [facility] 00:00:00 [facility] Influenza Virus 2013-08-08 Completed [facility] 00:00:00 [facility] Influenza Virus 2013-08-08 Completed [facility] 00:00:00 [facility] Influenza Virus 2013-08-08 Completed [facility] 00:00:00 [facility] Influenza Virus 2013-08-08 Completed [facility] 00:00:00 [facility] Influenza Virus 2013-08-08 Completed [facility] 00:00:00 [facility] Influenza Virus 2013-08-08 Completed [facility] 00:00:00 [facility] Influenza Virus 2013-08-08 Completed [facility] 00:00:00 [facility] Influenza Virus 2013-08-08 Completed [facility] 00:00:00 [facility] Influenza Virus 2013-08-08 Completed [facility] 00:00:00 [facility] Influenza Virus 2013-08-08 Completed [facility] 00:00:00 [facility] Influenza Virus 2013-08-08 Completed [facility] 00:00:00 [facility] Influenza Virus 2013-08-08 Completed [facility] 00:00:00 [facility] Influenza Virus 2013-08-08 Completed [facility] 00:00:00 [facility] Influenza Virus 2012-09-03 Completed [facility] 00:00:00 [facility] Influenza Virus 2012-09-03 Completed [facility] 00:00:00 [facility] Influenza Virus 2012-09-03 Completed [facility] 00:00:00 [facility] Influenza Virus 2012-09-03 Completed [facility] 00:00:00 [facility] Influenza Virus 2012-09-03 Completed [facility] 00:00:00 [facility] Influenza Virus 2012-09-03 Completed [facility] 00:00:00 [facility] Influenza Virus 2012-09-03 Completed [facility] 00:00:00 [facility] Influenza Virus 2012-09-03 Completed [facility] 00:00:00 [facility] Influenza Virus 2012-09-03 Completed [facility] 00:00:00 [facility] Influenza Virus 2012-09-03 Completed [facility] 00:00:00 [facility] Influenza Virus 2012-09-03 Completed [facility] 00:00:00 [facility] Influenza Virus 2012-09-03 Completed [facility] 00:00:00 [facility] Influenza Virus 2012-09-03 Completed [facility] 00:00:00 [facility] Influenza Virus 2012-09-03 Completed [facility] 00:00:00 [facility] Influenza Virus 2012-09-03 Completed [facility] 00:00:00 [facility] Influenza Virus 2012-09-03 Completed [facility] 00:00:00 [facility] Influenza Virus 2012-09-03 Completed [facility] 00:00:00 [facility] Influenza Virus 2012-09-03 Completed [facility] 00:00:00 [facility] Influenza Virus 2012-09-03 Completed [facility] 00:00:00 [facility] Influenza Virus 2012-09-03 Completed [facility] 00:00:00 [facility] Influenza Virus 2012-09-03 Completed [facility] 00:00:00 [facility] Influenza Virus 2012-09-03 Completed [facility] 00:00:00 [facility] Influenza Virus 2012-09-03 Completed [facility] 00:00:00 [facility] Influenza Virus 2012-09-03 Completed [facility] 00:00:00 [facility] Influenza Virus 2012-09-03 Completed [facility] 00:00:00 [facility] Influenza Virus 2012-09-03 Completed [facility] 00:00:00 [facility] Influenza Virus 2012-09-03 Completed [facility] 00:00:00 [facility] Influenza Virus 2012-09-03 Completed [facility] 00:00:00 [facility] Influenza Virus 2012-09-03 Completed [facility] 00:00:00 [facility] Influenza Virus 2012-09-03 Completed [facility] 00:00:00 [facility] Influenza Virus 2012-09-03 Completed [facility] 00:00:00 [facility] Influenza Virus 2012-09-03 Completed [facility] 00:00:00 [facility] Influenza Virus 2012-09-03 Completed [facility] 00:00:00 [facility] Influenza Virus 2012-09-03 Completed [facility] 00:00:00 [facility] Influenza Virus 2012-09-03 Completed [facility] 00:00:00 [facility] Influenza Virus 2012-09-03 Completed [facility] 00:00:00 [facility] Influenza Virus 2012-09-03 Completed [facility] 00:00:00 [facility] Influenza Virus 2012-09-03 Completed [facility] 00:00:00 [facility] Influenza Virus 2012-09-03 Completed [facility] 00:00:00 [facility] Influenza Virus 2012-09-03 Completed [facility] 00:00:00 [facility] Influenza Virus 2012-09-03 Completed [facility] 00:00:00 [facility] Influenza Virus 2012-09-03 Completed [facility] 00:00:00 [facility] Influenza Virus 2012-09-03 Completed [facility] 00:00:00 [facility] Influenza Virus 2012-09-03 Completed [facility] 00:00:00 [facility] Influenza Virus 2012-09-03 Completed [facility] 00:00:00 [facility] Influenza Virus 2012-09-03 Completed [facility] 00:00:00 [facility] Influenza Virus 2012-09-03 Completed [facility] 00:00:00 [facility] Influenza Virus 2012-09-03 Completed [facility] 00:00:00 [facility] Influenza Virus 2012-09-03 Completed [facility] 00:00:00 [facility] Influenza Virus 2012-09-03 Completed [facility] 00:00:00 [facility] Influenza Virus 2012-09-03 Completed [facility] 00:00:00 [facility] Influenza Virus 2012-09-03 Completed [facility] 00:00:00 [facility] Influenza Virus 2012-09-03 Completed [facility] 00:00:00 [facility] Influenza Virus 2012-09-03 Completed [facility] 00:00:00 [facility] Influenza Virus 2012-09-03 Completed [facility] 00:00:00 [facility] Influenza Virus 2012-09-03 Completed [facility] 00:00:00 [facility] Influenza Virus 2012-09-03 Completed [facility] 00:00:00 [facility] Influenza Virus 2012-09-03 Completed [facility] 00:00:00 [facility] Influenza Virus 2012-09-03 Completed [facility] 00:00:00 [facility] Influenza Virus 2012-09-03 Completed [facility] 00:00:00 [facility] Influenza Virus 2012-09-03 Completed [facility] 00:00:00 [facility] Influenza Virus 2012-09-03 Completed [facility] 00:00:00 [facility] Influenza Virus 2012-09-03 Completed [facility] 00:00:00 [facility] Influenza Virus 2012-09-03 Completed [facility] 00:00:00 [facility] Influenza Virus 2012-09-03 Completed [facility] 00:00:00 [facility] Influenza Virus 2012-09-03 Completed [facility] 00:00:00 [facility] Influenza Virus 2012-09-03 Completed [facility] 00:00:00 [facility] Influenza Virus 2012-09-03 Completed [facility] 00:00:00 [facility] Influenza Virus 2012-09-03 Completed [facility] 00:00:00 [facility] Influenza Virus 2012-09-03 Completed [facility] 00:00:00 [facility] Influenza Virus 2012-09-03 Completed [facility] 00:00:00 [facility] Influenza Virus 2012-09-03 Completed [facility] 00:00:00 [facility] Influenza Virus 2012-09-03 Completed [facility] 00:00:00 [facility] Influenza Virus 2012-09-03 Completed [facility] 00:00:00 [facility] Influenza Virus 2012-09-03 Completed [facility] 00:00:00 [facility] Influenza Virus 2012-09-03 Completed [facility] 00:00:00 [facility] Influenza Virus 2012-09-03 Completed [facility] 00:00:00 [facility] Influenza Virus 2012-09-03 Completed [facility] 00:00:00 [facility] Influenza Virus 2012-09-03 Completed [facility] 00:00:00 [facility] Influenza Virus 2012-09-03 Completed [facility] 00:00:00 [facility] Influenza Virus 2012-09-03 Completed [facility] 00:00:00 [facility] Influenza Virus 2012-09-03 Completed [facility] 00:00:00 [facility] Influenza Virus 2012-09-03 Completed [facility] 00:00:00 [facility] Influenza Virus 2012-09-03 Completed [facility] 00:00:00 [facility] Influenza Virus 2012-09-03 Completed [facility] 00:00:00 [facility] Influenza Virus 2012-09-03 Completed [facility] 00:00:00 [facility] Influenza Virus 2012-09-03 Completed [facility] 00:00:00 [facility] Influenza Virus 2012-09-03 Completed [facility] 00:00:00 [facility] Influenza Virus 2012-09-03 Completed [facility] 00:00:00 [facility] Influenza Virus 2012-09-03 Completed [facility] 00:00:00 [facility] Influenza Virus 2012-09-03 Completed [facility] 00:00:00 [facility] Influenza Virus 2012-09-03 Completed [facility] 00:00:00 [facility] Influenza Virus 2012-09-03 Completed [facility] 00:00:00 [facility] Influenza Virus 2012-09-03 Completed [facility] 00:00:00 [facility] Influenza Virus 2012-09-03 Completed [facility] 00:00:00 [facility] Influenza Virus 2012-09-03 Completed [facility] 00:00:00 [facility] Influenza Virus 2012-09-03 Completed [facility] 00:00:00 [facility] Influenza Virus 2012-09-03 Completed [facility] 00:00:00 [facility] Influenza Virus 2012-09-03 Completed [facility] 00:00:00 [facility] Influenza Virus 2012-09-03 Completed [facility] 00:00:00 [facility] Influenza Virus 2012-09-03 Completed [facility] 00:00:00 [facility] Influenza Virus 2012-09-03 Completed [facility] 00:00:00 [facility] Influenza Virus 2012-09-03 Completed [facility] 00:00:00 [facility] Influenza Virus 2012-09-03 Completed [facility] 00:00:00 [facility] Influenza Virus 2012-09-03 Completed [facility] 00:00:00 [facility] Influenza Virus 2012-09-03 Completed [facility] 00:00:00 [facility] Influenza Virus 2012-09-03 Completed [facility] 00:00:00 [facility] Influenza Virus 2012-09-03 Completed [facility] 00:00:00 [facility] Influenza Virus 2011-09-19 Completed [facility] 00:00:00 [facility] Influenza Virus 2011-09-19 Completed [facility] 00:00:00 [facility] Influenza Virus 2011-09-19 Completed [facility] 00:00:00 [facility] Influenza Virus 2011-09-19 Completed [facility] 00:00:00 [facility] Influenza Virus 2011-09-19 Completed [facility] 00:00:00 [facility] Influenza Virus 2011-09-19 Completed [facility] 00:00:00 [facility] Influenza Virus 2011-09-19 Completed [facility] 00:00:00 [facility] Influenza Virus 2011-09-19 Completed [facility] 00:00:00 [facility] Influenza Virus 2011-09-19 Completed [facility] 00:00:00 [facility] Influenza Virus 2011-09-19 Completed [facility] 00:00:00 [facility] Influenza Virus 2011-09-19 Completed [facility] 00:00:00 [facility] Influenza Virus 2011-09-19 Completed [facility] 00:00:00 [facility] Influenza Virus 2011-09-19 Completed [facility] 00:00:00 [facility] Influenza Virus 2011-09-19 Completed [facility] 00:00:00 [facility] Influenza Virus 2011-09-19 Completed [facility] 00:00:00 [facility] Influenza Virus 2011-09-19 Completed [facility] 00:00:00 [facility] Influenza Virus 2011-09-19 Completed [facility] 00:00:00 [facility] Influenza Virus 2011-09-19 Completed [facility] 00:00:00 [facility] Influenza Virus 2011-09-19 Completed [facility] 00:00:00 [facility] Influenza Virus 2011-09-19 Completed [facility] 00:00:00 [facility] Influenza Virus 2011-09-19 Completed [facility] 00:00:00 [facility] Influenza Virus 2011-09-19 Completed [facility] 00:00:00 [facility] Influenza Virus 2011-09-19 Completed [facility] 00:00:00 [facility] Influenza Virus 2011-09-19 Completed [facility] 00:00:00 [facility] Influenza Virus 2011-09-19 Completed [facility] 00:00:00 [facility] Influenza Virus 2011-09-19 Completed [facility] 00:00:00 [facility] Influenza Virus 2011-09-19 Completed [facility] 00:00:00 [facility] Influenza Virus 2011-09-19 Completed [facility] 00:00:00 [facility] Influenza Virus 2011-09-19 Completed [facility] 00:00:00 [facility] Influenza Virus 2011-09-19 Completed [facility] 00:00:00 [facility] Influenza Virus 2011-09-19 Completed [facility] 00:00:00 [facility] Influenza Virus 2011-09-19 Completed [facility] 00:00:00 [facility] Influenza Virus 2011-09-19 Completed [facility] 00:00:00 [facility] Influenza Virus 2011-09-19 Completed [facility] 00:00:00 [facility] Influenza Virus 2011-09-19 Completed [facility] 00:00:00 [facility] Influenza Virus 2011-09-19 Completed [facility] 00:00:00 [facility] Influenza Virus 2011-09-19 Completed [facility] 00:00:00 [facility] Influenza Virus 2011-09-19 Completed [facility] 00:00:00 [facility] Influenza Virus 2011-09-19 Completed [facility] 00:00:00 [facility] Influenza Virus 2011-09-19 Completed [facility] 00:00:00 [facility] Influenza Virus 2011-09-19 Completed [facility] 00:00:00 [facility] Influenza Virus 2011-09-19 Completed [facility] 00:00:00 [facility] Influenza Virus 2011-09-19 Completed [facility] 00:00:00 [facility] Influenza Virus 2011-09-19 Completed [facility] 00:00:00 [facility] Influenza Virus 2011-09-19 Completed [facility] 00:00:00 [facility] Influenza Virus 2011-09-19 Completed [facility] 00:00:00 [facility] Influenza Virus 2011-09-19 Completed [facility] 00:00:00 [facility] Influenza Virus 2011-09-19 Completed [facility] 00:00:00 [facility] Influenza Virus 2011-09-19 Completed [facility] 00:00:00 [facility] Influenza Virus 2011-09-19 Completed [facility] 00:00:00 [facility] Influenza Virus 2011-09-19 Completed [facility] 00:00:00 [facility] Influenza Virus 2011-09-19 Completed [facility] 00:00:00 [facility] Influenza Virus 2011-09-19 Completed [facility] 00:00:00 [facility] Influenza Virus 2011-09-19 Completed [facility] 00:00:00 [facility] Influenza Virus 2011-09-19 Completed [facility] 00:00:00 [facility] Influenza Virus 2011-09-19 Completed [facility] 00:00:00 [facility] Influenza Virus 2011-09-19 Completed [facility] 00:00:00 [facility] Influenza Virus 2011-09-19 Completed [facility] 00:00:00 [facility] Influenza Virus 2011-09-19 Completed [facility] 00:00:00 [facility] Influenza Virus 2011-09-19 Completed [facility] 00:00:00 [facility] Influenza Virus 2011-09-19 Completed [facility] 00:00:00 [facility] Influenza Virus 2011-09-19 Completed [facility] 00:00:00 [facility] Influenza Virus 2011-09-19 Completed [facility] 00:00:00 [facility] Influenza Virus 2011-09-19 Completed [facility] 00:00:00 [facility] Influenza Virus 2011-09-19 Completed [facility] 00:00:00 [facility] Influenza Virus 2011-09-19 Completed [facility] 00:00:00 [facility] Influenza Virus 2011-09-19 Completed [facility] 00:00:00 [facility] Influenza Virus 2011-09-19 Completed [facility] 00:00:00 [facility] Influenza Virus 2011-09-19 Completed [facility] 00:00:00 [facility] Influenza Virus 2011-09-19 Completed [facility] 00:00:00 [facility] Influenza Virus 2011-09-19 Completed [facility] 00:00:00 [facility] Influenza Virus 2011-09-19 Completed [facility] 00:00:00 [facility] Influenza Virus 2011-09-19 Completed [facility] 00:00:00 [facility] Influenza Virus 2011-09-19 Completed [facility] 00:00:00 [facility] Influenza Virus 2011-09-19 Completed [facility] 00:00:00 [facility] Influenza Virus 2011-09-19 Completed [facility] 00:00:00 [facility] Influenza Virus 2011-09-19 Completed [facility] 00:00:00 [facility] Influenza Virus 2011-09-19 Completed [facility] 00:00:00 [facility] Influenza Virus 2011-09-19 Completed [facility] 00:00:00 [facility] Influenza Virus 2011-09-19 Completed [facility] 00:00:00 [facility] Influenza Virus 2011-09-19 Completed [facility] 00:00:00 [facility] Influenza Virus 2011-09-19 Completed [facility] 00[facility]00:00 [facility] Influenza Virus 2011-09-19 Completed [facility] 00:00:00 [facility] Influenza Virus 2011-09-19 Completed [facility] 00:00:00 [facility] Influenza Virus 2011-09-19 Completed [facility] 00:00:00 [facility] Influenza Virus 2011-09-19 Completed [facility] 00:00:00 [facility] Influenza Virus 2011-09-19 Completed [facility] 00:00:00 [facility] Influenza Virus 2011-09-19 Completed [facility] 00:00:00 [facility] Influenza Virus 2011-09-19 Completed [facility] 00:00:00 [facility] Influenza Virus 2011-09-19 Completed [facility] 00:00:00 [facility] Influenza Virus 2011-09-19 Completed [facility] 00:00:00 [facility] Influenza Virus 2011-09-19 Completed [facility] 00:00:00 [facility] Influenza Virus 2011-09-19 Completed [facility] 00:00:00 [facility] Influenza Virus 2011-09-19 Completed [facility] 00:00:00 [facility] Influenza Virus 2011-09-19 Completed [facility] 00:00:00 [facility] Influenza Virus 2011-09-19 Completed [facility] 00:00:00 [facility] Influenza Virus 2011-09-19 Completed [facility] 00:00:00 [facility] Influenza Virus 2011-09-19 Completed [facility] 00:00:00 [facility] Influenza Virus 2011-09-19 Completed [facility] 00:00:00 [facility] Influenza Virus 2011-09-19 Completed [facility] 00:00:00 [facility] Influenza Virus 2011-09-19 Completed [facility]00 [facility] [facility] 2011-09-19 Completed [facility] 00:00[facility]00 [facility] Influenza Virus 2011-09-19 Completed [facility] 00[facility]00:00 [facility] Influenza Virus 2011-09-19 Completed [facility]ine 00:00:00 [facility] Influenza Virus 2011-09-19 Completed [facility]ine 00:00:00 [facility] Influenza Virus 2011-09-19 Completed [facility] Vaccine 00:00:00 [facility] Influenza Virus 2011-09-19 Completed [facility] Vaccine 00:00:00 [facility] Influenza Virus 2011-09-19 Completed [facility] Vaccine 00:00:00 [facility] Influenza Virus 2010-10-25 Completed [facility] Vaccine 00:00:00 [facility] Influenza Virus 2010-10-25 Completed [facility] Vaccine 00:00:00 [facility] Influenza Virus 2010-10-25 Completed [facility] Vaccine 00:00:00 [facility] Influenza Virus 2010-10-25 Completed [facility] Vaccine 00:00:00 [facility] Influenza Virus 2010-10-25 Completed [facility] Vaccine 00:00:00 [facility] Influenza Virus 2010-10-25 Completed [facility] Vaccine 00:00:00 [facility] Influenza Virus 2010-10-25 Completed [facility] Vaccine 00:00:00 [facility] Influenza Virus 2010-10-25 Completed [facility] Vaccine 00:00:00 [facility] Influenza Virus 2010-10-25 Completed [facility] Vaccine 00:00:00 [facility] Influenza Virus 2010-10-25 Completed [facility] Vaccine 00:00:00 [facility] Influenza Virus 2010-10-25 Completed [facility] Vaccine 00:00:00 [facility] Influenza Virus 2010-10-25 Completed [facility] Vaccine 00:00:00 [facility] Influenza Virus 2010-10-25 Completed [facility] Vaccine 00:00:00 [facility] Influenza Virus 2010-10-25 Completed [facility] Vaccine 00:00:00 [facility] Influenza Virus 2010-10-25 Completed [facility] Vaccine 00:00:00 [facility] Influenza Virus 2010-10-25 Completed [facility] Vaccine 00:00:00 [facility] Influenza Virus 2010-10-25 Completed [facility] Vaccine 00:00:00 [facility] Influenza Virus 2010-10-25 Completed [facility] Vaccine 00:00:00 [facility] Influenza Virus 2010-10-25 Completed [facility] Vaccine 00:00:00 [facility] Influenza Virus 2010-10-25 Completed [facility] Vaccine 00:00:00 [facility] Influenza Virus 2010-10-25 Completed [facility] Vaccine 00:00:00 [facility] Influenza Virus 2010-10-25 Completed [facility] Vaccine 00:00:00 [facility] Influenza Virus 2010-10-25 Completed [facility] Vaccine 00:00:00 [facility] Influenza Virus 2010-10-25 Completed [facility] Vaccine 00:00:00 [facility] Influenza Virus 2010-10-25 Completed [facility] Vaccine 00:00:00 [facility] Influenza Virus 2010-10-25 Completed [facility] Vaccine 00:00:00 [facility] Influenza Virus 2010-10-25 Completed [facility] Vaccine 00:00:00 [facility] Influenza Virus 2010-10-25 Completed [facility] Vaccine 00:00:00 [facility] Influenza Virus 2010-10-25 Completed [facility] Vaccine 00:00:00 [facility] Influenza Virus 2010-10-25 Completed [facility] Vaccine 00:00:00 [facility] Influenza Virus 2010-10-25 Completed [facility] Vaccine 00:00:00 [facility] Influenza Virus 2010-10-25 Completed [facility] Vaccine 00:00:00 [facility] Influenza Virus 2010-10-25 Completed [facility] Vaccine 00:00:00 [facility] Influenza Virus 2010-10-25 Completed [facility] Vaccine 00:00:00 [facility] Influenza Virus 2010-10-25 Completed [facility] Vaccine 00:00:00 [facility] Influenza Virus 2010-10-25 Completed [facility] Vaccine 00:00:00 [facility] Influenza Virus 2010-10-25 Completed [facility] Vaccine 00:00:00 [facility] Influenza Virus 2010-10-25 Completed [facility] Vaccine 00:00:00 [facility] Influenza Virus 2010-10-25 Completed [facility] Vaccine 00:00:00 [facility] Influenza Virus 2010-10-25 Completed [facility] Vaccine 00:00:00 [facility] Influenza Virus 2010-10-25 Completed [facility] Vaccine 00:00:00 [facility] Influenza Virus 2010-10-25 Completed [facility] Vaccine 00:00:00 [facility] Influenza Virus 2010-10-25 Completed [facility] Vaccine 00:00:00 [facility] Influenza Virus 2010-10-25 Completed [facility] Vaccine 00:00:00 [facility] Influenza Virus 2010-10-25 Completed [facility] Vaccine 00:00:00 [facility] Influenza Virus 2010-10-25 Completed [facility] Vaccine 00:00:00 [facility] Influenza Virus 2010-10-25 Completed [facility] Vaccine 00:00:00 [facility] Influenza Virus 2010-10-25 Completed [facility] Vaccine 00:00:00 [facility] Influenza Virus 2010-10-25 Completed [facility] Vaccine 00:00:00 [facility] Influenza Virus 2010-10-25 Completed [facility] Vaccine 00:00:00 [facility] Influenza Virus 2010-10-25 Completed [facility] Vaccine 00:00:00 [facility] Influenza Virus 2010-10-25 Completed [facility] Vaccine 00:00:00 [facility] Influenza Virus 2010-10-25 Completed [facility] Vaccine 00:00:00 [facility] Influenza Virus 2010-10-25 Completed [facility] Vaccine 00:00:00 [facility] Influenza Virus 2010-10-25 Completed [facility] Vaccine 00:00:00 [facility] Influenza Virus 2010-10-25 Completed [facility] Vaccine 00:00:00 [facility] Influenza Virus 2010-10-25 Completed [facility] Vaccine 00:00:00 [facility] Influenza Virus 2010-10-25 Completed [facility] Vaccine 00:00:00 [facility] Influenza Virus 2010-10-25 Completed [facility] Vaccine 00:00:00 [facility] Influenza Virus 2010-10-25 Completed [facility] Vaccine 00:00:00 [facility] Influenza Virus 2010-10-25 Completed [facility] Vaccine 00:00:00 [facility] Influenza Virus 2010-10-25 Completed [facility] Vaccine 00:00:00 [facility] Influenza Virus 2010-10-25 Completed [facility] Vaccine 00:00:00 [facility] Influenza Virus 2010-10-25 Completed [facility] Vaccine 00:00:00 [facility] Influenza Virus 2010-10-25 Completed [facility] Vaccine 00:00:00 [facility] Influenza Virus 2010-10-25 Completed [facility] Vaccine 00:00:00 [facility] Influenza Virus 2010-10-25 Completed [facility] Vaccine 00:00:00 [facility] Influenza Virus 2010-10-25 Completed [facility] Vaccine 00:00:00 [facility] Influenza Virus 2010-10-25 Completed [facility] Vaccine 00:00:00 [facility] Influenza Virus 2010-10-25 Completed [facility] Vaccine 00:00:00 [facility] Influenza Virus 2010-10-25 Completed [facility] Vaccine 00:00:00 [facility] Influenza Virus 2010-10-25 Completed [facility]ine 00:00:00 [facility] Influenza Virus 2010-10-25 Completed [facility] Vaccine 00:00:00 [facility] Influenza Virus 2010-10-25 Completed [facility] Vaccine 00:00:00 [facility] Influenza Virus 2010-10-25 Completed [facility] Vaccine 00:00:00 [facility] Influenza Virus 2010-10-25 Completed [facility] Vaccine 00:00:00 [facility] Influenza Virus 2010-10-25 Completed [facility] Vaccine 00:00:00 [facility] Influenza Virus 2010-10-25 Completed [facility] Vaccine 00:00:00 [facility] Influenza Virus 2010-10-25 Completed [facility] Vaccine 00:00:00 [facility] Influenza Virus 2010-10-25 Completed [facility] Vaccine 00:00:00 [facility] Influenza Virus 2010-10-25 Completed [facility] Vaccine 00:00:00 [facility] Influenza Virus 2010-10-25 Completed [facility] Vaccine 00:00:00 [facility] Influenza Virus 2010-10-25 Completed [facility] Vaccine 00:00:00 [facility] Influenza Virus 2010-10-25 Completed [facility] Vaccine 00:00:00 [facility] Influenza Virus 2010-10-25 Completed [facility] Vaccine 00:00:00 [facility] Influenza Virus 2010-10-25 Completed [facility] Vaccine 00:00:00 [facility] Influenza Virus 2010-10-25 Completed [facility] Vaccine 00:00:00 [facility] Influenza Virus 2010-10-25 Completed [facility] Vaccine 00:00:00 [facility] Influenza Virus 2010-10-25 Completed [facility] Vaccine 00:00:00 [facility] Influenza Virus 2010-10-25 Completed [facility]ine 00:00:00 [facility] Influenza Virus 2010-10-25 Completed [facility] Vaccine 00:00:00 [facility] Influenza Virus 2010-10-25 Completed [facility] Vaccine 00:00:00 [facility] Influenza Virus 2010-10-25 Completed [facility] 00:00:00 [facility] Influenza Virus 2010-10-25 Completed [facility] Vaccine 00:00:00 [facility] Influenza Virus 2010-10-25 Completed [facility] Vaccine 00:00:00 [facility] Influenza Virus 2010-10-25 Completed [facility] Vaccine 00:00:00 [facility] Influenza Virus 2010-10-25 Completed [facility] Vaccine 00:00:00 [facility] Influenza Virus 2010-10-25 Completed [facility] Vaccine 00:00:00 [facility] Influenza Virus 2010-10-25 Completed [facility] Vaccine 00:00:00 [facility] Influenza Virus 2010-10-25 Completed [facility] Vaccine 00:00:00 [facility] Influenza Virus 2010-10-25 Completed [facility] Vaccine 00:00:00 [facility] Influenza Virus 2010-10-25 Completed [facility] Vaccine 00:00:00 [facility] Influenza Virus 2010-10-25 Completed [facility] Vaccine 00:00:00 [facility] Influenza Virus 2010-10-25 Completed [facility] Vaccine 00:00:00 [facility] Influenza Virus 2010-10-25 Completed [facility] Vaccine 00:00:00 [facility] Influenza Virus 2010-10-25 Completed [facility] Vaccine 00:00:00 [facility] Influenza Virus 2010-10-25 Completed [facility] Vaccine 00:00:00 [facility] Influenza Virus 2010-10-25 Completed [facility] Vaccine 00:00:00 [facility] Hep B, Adol or Pedi 2010-03-07 Completed [facility] Dosage 00:00:00 [facility] Hep B, Adol or Pedi 2010-03-07 Completed [facility] Dosage 00:00:00 [facility] Hep B, Adol or Pedi 2010-03-07 Completed [facility] Dosage 00:00:00 [facility] Hep B, Adol or Pedi 2010-03-07 Completed [facility] Dosage 00:00:00 [facility] Hep B, Adol or Pedi 2010-03-07 Completed [facility] Dosage 00:00:00 [facility] Hep B, Adol or Pedi 2010-03-07 Completed [facility] Dosage 00:00:00 [facility] Hep B, Adol or Pedi 2010-03-07 Completed [facility] Dosage 00:00:00 [facility] Hep B, Adol or Pedi 2010-03-07 Completed [facility] Dosage 00:00:00 [facility] Hep B, Adol or Pedi 2010-03-07 Completed [facility] Dosage 00:00:00 [facility] Hep B, Adol or Pedi 2010-03-07 Completed [facility] Dosage 00:00:00 [facility] Hep B, Adol or Pedi 2010-03-07 Completed [facility] Dosage 00:00:00 [facility] Hep B, Adol or Pedi 2010-03-07 Completed [facility] Dosage 00:00:00 [facility] Hep B, Adol or Pedi 2010-03-07 Completed [facility] Dosage 00:00:00 [facility] Hep B, Adol or Pedi 2010-03-07 Completed [facility] Dosage 00:00:00 [facility] Hep B, Adol or Pedi 2010-03-07 Completed [facility] Dosage 00:00:00 [facility] Hep B, Adol or Pedi 2010-03-07 Completed [facility] Dosage 00:00:00 [facility] Hep B, Adol or Pedi 2010-03-07 Completed [facility] Dosage 00:00:00 [facility] Hep B, Adol or Pedi 2010-03-07 Completed [facility] Dosage 00:00:00 [facility] Hep B, Adol or Pedi 2010-03-07 Completed [facility] Dosage 00:00:00 [facility] Hep B, Adol or Pedi 2010-03-07 Completed [facility] Dosage 00:00:00 [facility] Hep B, Adol or Pedi 2010-03-07 Completed [facility] Dosage 00:00:00 [facility] Hep B, Adol or Pedi 2010-03-07 Completed [facility] Dosage 00:00:00 [facility] Hep B, Adol or Pedi 2010-03-07 Completed [facility] Dosage 00:00:00 [facility] Hep B, Adol or Pedi 2010-03-07 Completed [facility] Dosage 00:00:00 [facility] Hep B, Adol or Pedi 2010-03-07 Completed [facility] Dosage 00:00:00 [facility] Hep B, Adol or Pedi 2010-03-07 Completed [facility] Dosage 00:00:00 [facility] Hep B, Adol or Pedi 2010-03-07 Completed [facility] Dosage 00:00:00 [facility] Hep B, Adol or Pedi 2010-03-07 Completed [facility] Dosage 00:00:00 [facility] Hep B, Adol or Pedi 2010-03-07 Completed [facility] Dosage 00:00:00 [facility] Hep B, Adol or Pedi 2010-03-07 Completed [facility] Dosage 00:00:00 [facility] Hep B, Adol or Pedi 2010-03-07 Completed [facility] Dosage 00:00:00 [facility] Hep B, Adol or Pedi 2010-03-07 Completed [facility] Dosage 00:00:00 [facility] Hep B, Adol or Pedi 2010-03-07 Completed [facility] Dosage 00:00:00 [facility] Hep B, Adol or Pedi 2010-03-07 Completed [facility] Dosage 00:00:00 [facility] Hep B, Adol or Pedi 2010-03-07 Completed [facility] Dosage 00:00:00 [facility] Hep B, Adol or Pedi 2010-03-07 Completed [facility] Dosage 00:00:00 [facility] Hep B, Adol or Pedi 2010-03-07 Completed [facility] Dosage 00:00:00 [facility] Hep B, Adol or Pedi 2010-03-07 Completed [facility] Dosage 00:00:00 [facility] Hep B, Adol or Pedi 2010-03-07 Completed [facility] Dosage 00:00:00 [facility] Hep B, Adol or Pedi 2010-03-07 Completed [facility] Dosage 00:00:00 [facility] Hep B, Adol or Pedi 2010-03-07 Completed [facility] Dosage 00:00:00 [facility] Hep B, Adol or Pedi 2010-03-07 Completed [facility] Dosage 00:00:00 [facility] Hep B, Adol or Pedi 2010-03-07 Completed [facility] Dosage 00:00:00 [facility] Hep B, Adol or Pedi 2010-03-07 Completed [facility] Dosage 00:00:00 [facility] Hep B, Adol or Pedi 2010-03-07 Completed [facility] Dosage 00:00:00 [facility] Hep B, Adol or Pedi 2010-03-07 Completed [facility] Dosage 00:00:00 [facility] Hep B, Adol or Pedi 2010-03-07 Completed [facility] Dosage 00:00:00 [facility] Hep B, Adol or Pedi 2010-03-07 Completed [facility] Dosage 00:00:00 [facility] Hep B, Adol or Pedi 2010-03-07 Completed [facility] Dosage 00:00:00 [facility] Hep B, Adol or Pedi 2010-03-07 Completed [facility] Dosage 00:00:00 [facility] Hep B, Adol or Pedi 2010-03-07 Completed [facility] Dosage 00:00:00 [facility] Hep B, Adol or Pedi 2010-03-07 Completed [facility] Dosage 00:00:00 [facility] Hep B, Adol or Pedi 2010-03-07 Completed [facility] Dosage 00:00:00 [facility] Hep B, Adol or Pedi 2010-03-07 Completed [facility] Dosage 00:00:00 [facility] Hep B, Adol or Pedi 2010-03-07 Completed [facility] Dosage 00:00:00 [facility] Hep B, Adol or Pedi 2010-03-07 Completed [facility] Dosage 00:00:00 [facility] Hep B, Adol or Pedi 2010-03-07 Completed [facility] Dosage 00:00:00 [facility] Hep B, Adol or Pedi 2010-03-07 Completed [facility] Dosage 00:00:00 [facility] Hep B, Adol or Pedi 2010-03-07 Completed [facility] Dosage 00:00:00 [facility] Hep B, Adol or Pedi 2010-03-07 Completed [facility] Dosage 00:00:00 [facility] Hep B, Adol or Pedi 2010-03-07 Completed [facility] Dosage 00:00:00 [facility] Hep B, Adol or Pedi 2010-03-07 Completed [facility] Dosage 00:00:00 [facility] Hep B, Adol or Pedi 2010-03-07 Completed [facility] Dosage 00:00:00 [facility] Hep B, Adol or Pedi 2010-03-07 Completed [facility] Dosage 00:00:00 [facility] Hep B, Adol or Pedi 2010-03-07 Completed [facility] Dosage 00:00:00 [facility] Hep B, Adol or Pedi 2010-03-07 Completed [facility] Dosage 00:00:00 [facility] Hep B, Adol or Pedi 2010-03-07 Completed [facility] Dosage 00:00:00 [facility] Hep B, Adol or Pedi 2010-03-07 Completed [facility] Dosage 00:00:00 [facility] Hep B, Adol or Pedi 2010-03-07 Completed [facility] Dosage 00:00:00 [facility] Hep B, Adol or Pedi 2010-03-07 Completed [facility] Dosage 00:00:00 [facility] Hep B, Adol or Pedi 2010-03-07 Completed [facility] Dosage 00:00:00 [facility] Hep B, Adol or Pedi 2010-03-07 Completed [facility] Dosage 00:00:00 [facility] Hep B, Adol or Pedi 2010-03-07 Completed [facility] Dosage 00:00:00 [facility] Hep B, Adol or Pedi 2010-03-07 Completed [facility] Dosage 00:00:00 [facility] Hep B, Adol or Pedi 2010-03-07 Completed [facility] Dosage 00:00:00 [facility] Hep B, Adol or Pedi 2010-03-07 Completed [facility] Dosage 00:00:00 [facility] Hep B, Adol or Pedi 2010-03-07 Completed [facility] Dosage 00:00:00 [facility] Hep B, Adol or Pedi 2010-03-07 Completed [facility] Dosage 00:00:00 [facility] Hep B, Adol or Pedi 2010-03-07 Completed [facility] Dosage 00:00:00 [facility] Hep B, Adol or Pedi 2010-03-07 Completed [facility] Dosage 00:00:00 [facility] Hep B, Adol or Pedi 2010-03-07 Completed [facility] Dosage 00:00:00 [facility] Hep B, Adol or Pedi 2010-03-07 Completed [facility] Dosage 00:00:00 [facility] Hep B, Adol or Pedi 2010-03-07 Completed [facility] Dosage 00:00:00 [facility] Hep B, Adol or Pedi 2010-03-07 Completed [facility] Dosage 00:00:00 [facility] Hep B, Adol or Pedi 2010-03-07 Completed [facility] Dosage 00:00:00 [facility] Hep B, Adol or Pedi 2010-03-07 Completed [facility] Dosage 00:00:00 [facility] Hep B, Adol or Pedi 2010-03-07 Completed [facility] Dosage 00:00:00 [facility] Hep B, Adol or Pedi 2010-03-07 Completed [facility] Dosage 00:00:00 [facility] Hep B, Adol or Pedi 2010-03-07 Completed [facility] Dosage 00:00:00 [facility] Hep B, Adol or Pedi 2010-03-07 Completed [facility] Dosage 00:00:00 [facility] Hep B, Adol or Pedi 2010-03-07 Completed [facility] Dosage 00:00:00 [facility] Hep B, Adol or Pedi 2010-03-07 Completed [facility] Dosage 00:00:00 [facility] Hep B, Adol or Pedi 2010-03-07 Completed [facility] Dosage 00:00:00 [facility] Hep B, Adol or Pedi 2010-03-07 Completed [facility] Dosage 00:00:00 [facility] Hep B, Adol or Pedi 2010-03-07 Completed [facility] Dosage 00:00:00 [facility] Hep B, Adol or Pedi 2010-03-07 Completed [facility] Dosage 00:00:00 [facility] Hep B, Adol or Pedi 2010-03-07 Completed [facility] Dosage 00:00:00 [facility] Hep B, Adol or Pedi 2010-03-07 Completed [facility] Dosage 00:00:00 [facility] Hep B, Adol or Pedi 2010-03-07 Completed [facility] Dosage 00:00:00 [facility] Hep B, Adol or Pedi 2010-03-07 Completed [facility] Dosage 00:00:00 [facility] Hep B, Adol or Pedi 2010-03-07 Completed [facility] Dosage 00:00:00 [facility] Hep B, Adol or Pedi 2010-03-07 Completed [facility] Dosage 00:00:00 [facility] Hep B, Adol or Pedi 2010-03-07 Completed [facility] Dosage 00:00:00 [facility] Hep B, Adol or Pedi 2010-03-07 Completed [facility] Dosage 00:00:00 [facility] Hep B, Adol or Pedi 2010-03-07 Completed [facility] Dosage 00:00:00 [facility] Hep B, Adol or Pedi 2010-03-07 Completed [facility] Dosage 00:00:00 [facility] Hep B, Adol or Pedi 2010-03-07 Completed [facility] Dosage 00:00:00 [facility] Hep B, Adol or Pedi 2010-03-07 Completed [facility] Dos[facility] 00:00:00 [facility] H1n1 Vaccine 2009-11-01 Completed [facility] 00:00:00 [facility] H1n1 Vaccine 2009-11-01 Completed [facility] 00:00:00 [facility] H1n1 Vaccine 2009-11-01 Completed [facility] 00:00:00 [facility] H1n1 Vaccine 2009-11-01 Completed [facility] 00:00:00 [facility] H1n1 Vaccine 2009-11-01 Completed [facility] 00:00:00 [facility] H1n1 Vaccine 2009-11-01 Completed [facility] 00:00:00 [facility] H1n1 Vaccine 2009-11-01 Completed [facility] 00:00:00 [facility] H1n1 Vaccine 2009-11-01 Completed [facility] 00:00:00 [facility] H1n1 Vaccine 2009-11-01 Completed [facility] 00:00:00 [facility] H1n1 Vaccine 2009-11-01 Completed [facility] 00:00:00 [facility] H1n1 Vaccine 2009-11-01 Completed [facility] 00:00:00 [facility] H1n1 Vaccine 2009-11-01 Completed [facility] 00:00:00 [facility] H1n1 Vaccine 2009-11-01 Completed [facility] 00:00:00 [facility] H1n1 Vaccine 2009-11-01 Completed [facility] 00:00:00 [facility] H1n1 Vaccine 2009-11-01 Completed [facility] 00:00:00 [facility] H1n1 Vaccine 2009-11-01 Completed [facility] 00:00:00 [facility] H1n1 Vaccine 2009-11-01 Completed [facility] 00:00:00 [facility] H1n1 Vaccine 2009-11-01 Completed [facility] 00:00:00 [facility] H1n1 Vaccine 2009-11-01 Completed [facility] 00:00:00 [facility] H1n1 Vaccine 2009-11-01 Completed [facility] 00:00:00 [facility] H1n1 Vaccine 2009-11-01 Completed [facility] 00:00:00 [facility] H1n1 Vaccine 2009-11-01 Completed [facility] 00:00:00 [facility] H1n1 Vaccine 2009-11-01 Completed [facility] 00:00:00 [facility] H1n1 Vaccine 2009-11-01 Completed [facility] 00:00:00 [facility] H1n1 Vaccine 2009-11-01 Completed [facility] 00:00:00 [facility] H1n1 Vaccine 2009-11-01 Completed [facility] 00:00:00 [facility] H1n1 Vaccine 2009-11-01 Completed [facility] 00:00:00 [facility] H1n1 Vaccine 2009-11-01 Completed [facility] 00:00:00 [facility] H1n1 Vaccine 2009-11-01 Completed [facility] 00:00:00 [facility] H1n1 Vaccine 2009-11-01 Completed [facility] 00:00:00 [facility] H1n1 Vaccine 2009-11-01 Completed [facility] 00:00:00 [facility] H1n1 Vaccine 2009-11-01 Completed [facility] 00:00:00 [facility] H1n1 Vaccine 2009-11-01 Completed [facility] 00:00:00 [facility] H1n1 Vaccine 2009-11-01 Completed [facility] 00:00:00 [facility] H1n1 Vaccine 2009-11-01 Completed [facility] 00:00:00 [facility] H1n1 Vaccine 2009-11-01 Completed [facility] 00:00:00 [facility] H1n1 Vaccine 2009-11-01 Completed [facility] 00:00:00 [facility] H1n1 Vaccine 2009-11-01 Completed [facility] 00:00:00 [facility] H1n1 Vaccine 2009-11-01 Completed [facility] 00:00:00 [facility] H1n1 Vaccine 2009-11-01 Completed [facility] 00:00:00 [facility] H1n1 Vaccine 2009-11-01 Completed [facility] 00:00:00 [facility] H1n1 Vaccine 2009-11-01 Completed [facility]00 [facility] H1n1 Vaccine 2009-11-01 Completed [facility] 00:[facility]:00 [facility] H1n1 Vaccine 2009-11-01 Completed [facility] 00:00:00 [facility] H1n1 Vaccine 2009-11-01 Completed [facility] 00:00:00 [facility] H1n1 Vaccine 2009-11-01 Completed [facility] 00:00:00 [facility] H1n1 Vaccine 2009-11-01 Completed [facility] 00:00:00 [facility] H1n1 Vaccine 2009-11-01 Completed [facility] 00:00:00 [facility] H1n1 Vaccine 2009-11-01 Completed [facility] 00:00:00 [facility] H1n1 Vaccine 2009-11-01 Completed [facility] 00:00:00 [facility] H1n1 Vaccine 2009-11-01 Completed [facility] 00:00:00 [facility] H1n1 Vaccine 2009-11-01 Completed [facility] 00:00:00 [facility] H1n1 Vaccine 2009-11-01 Completed [facility] 00:00:00 [facility] H1n1 Vaccine 2009-11-01 Completed [facility] 00:00:00 [facility] H1n1 Vaccine 2009-11-01 Completed [facility] 00:00:00 [facility] H1n1 Vaccine 2009-11-01 Completed [facility] 00:00:00 [facility] H1n1 Vaccine 2009-11-01 Completed [facility] 00:00:00 [facility] H1n1 Vaccine 2009-11-01 Completed [facility] 00:00:00 [facility] H1n1 Vaccine 2009-11-01 Completed [facility] 00:00:00 [facility] H1n1 Vaccine 2009-11-01 Completed [facility] 00:00:00 [facility] H1n1 Vaccine 2009-11-01 Completed [facility] 00:00:00 [facility] H1n1 Vaccine 2009-11-01 Completed [facility] 00:00:00 [facility] H1n1 Vaccine 2009-11-01 Completed [facility] 00:00:00 [facility] H1n1 Vaccine 2009-11-01 Completed [facility] 00:00:00 [facility] H1n1 Vaccine 2009-11-01 Completed [facility] 00:00:00 [facility] H1n1 Vaccine 2009-11-01 Completed [facility] 00:00:00 [facility] H1n1 Vaccine 2009-11-01 Completed [facility] 00:00:00 [facility] H1n1 Vaccine 2009-11-01 Completed [facility] 00:00:00 [facility] H1n1 Vaccine 2009-11-01 Completed [facility] 00:00:00 [facility] H1n1 Vaccine 2009-11-01 Completed [facility] 00:00:00 [facility] H1n1 Vaccine 2009-11-01 Completed [facility] 00:00:00 [facility] H1n1 Vaccine 2009-11-01 Completed [facility] 00:00:00 [facility] H1n1 Vaccine 2009-11-01 Completed [facility] 00:00:00 [facility] H1n1 Vaccine 2009-11-01 Completed [facility] 00:00:00 [facility] H1n1 Vaccine 2009-11-01 Completed [facility] 00:00:00 [facility] H1n1 Vaccine 2009-11-01 Completed [facility] 00:00:00 [facility] H1n1 Vaccine 2009-11-01 Completed [facility] 00:00:00 [facility] H1n1 Vaccine 2009-11-01 Completed [facility] 00:00:00 [facility] H1n1 Vaccine 2009-11-01 Completed [facility] 00:00:00 [facility] H1n1 Vaccine 2009-11-01 Completed [facility] 00:00:00 [facility] H1n1 Vaccine 2009-11-01 Completed [facility] 00:00:00 [facility] H1n1 Vaccine 2009-11-01 Completed [facility] 00:00:00 [facility] H1n1 Vaccine 2009-11-01 Completed [facility] 00:00:00 [facility] H1n1 Vaccine 2009-11-01 Completed [facility] 00:00:00 [facility] H1n1 Vaccine 2009-11-01 Completed [facility] 00:00:00 [facility] H1n1 Vaccine 2009-11-01 Completed [facility] 00:00:00 [facility] H1n1 Vaccine 2009-11-01 Completed [facility] 00:00:00 [facility] H1n1 Vaccine 2009-11-01 Completed [facility] 00:00:00 [facility] H1n1 Vaccine 2009-11-01 Completed [facility] 00:00:00 [facility] H1n1 Vaccine 2009-11-01 Completed [facility] 00:00:00 [facility] H1n1 Vaccine 2009-11-01 Completed [facility] 00:00:00 [facility] H1n1 Vaccine 2009-11-01 Completed [facility] 00:00:00 [facility] H1n1 Vaccine 2009-11-01 Completed [facility] 00:00:00 [facility] H1n1 Vaccine 2009-11-01 Completed [facility] 00:00:00 [facility] H1n1 Vaccine 2009-11-01 Completed [facility] 00:00:00 [facility] H1n1 Vaccine 2009-11-01 Completed [facility] 00:00:00 [facility] H1n1 Vaccine 2009-11-01 Completed [facility] 00:00:00 [facility] H1n1 Vaccine 2009-11-01 Completed [facility] 00:00:00 [facility] H1n1 Vaccine 2009-11-01 Completed [facility] 00:00:00 [facility] H1n1 Vaccine 2009-11-01 Completed [facility] 00:00:00 [facility] H1n1 Vaccine 2009-11-01 Completed [facility] 00:00:00 [facility] H1n1 Vaccine 2009-11-01 Completed [facility] 00:00:00 [facility] H1n1 Vaccine 2009-11-01 Completed [facility] 00:00:00 [facility] H1n1 Vaccine 2009-11-01 Completed [facility] 00:00:00 [facility] H1n1 Vaccine 2009-11-01 Completed [facility] 00:00:00 [facility] H1n1 Vaccine 2009-11-01 Completed [facility] 00:00:00 [facility] H1n1 Vaccine 2009-11-01 Completed [facility] 00:00:00 [facility] H1n1 Vaccine 2009-11-01 Completed [facility] 00:00:00 [facility] Pneumococcal 2009-10-04 Completed [facility] Polysaccharide, 00:00:00 [facility] PPSV23 (PNEUMOVAX) [facility] Pneumococcal 2009-10-04 Completed [facility] Polysaccharide, 00:00:00 [facility] PPSV23 (PNEUMOVAX) [facility] Pneumococcal 2009-10-04 Completed [facility] Polysaccharide, 00:00:00 [facility] PPSV23 (PNEUMOVAX) [facility] Pneumococcal 2009-10-04 Completed [facility] Polysaccharide, 00:00:00 [facility] PPSV23 (PNEUMOVAX) [facility] Pneumococcal 2009-10-04 Completed [facility] Polysaccharide, 00:00:00 [facility] PPSV23 (PNEUMOVAX) [facility] Pneumococcal 2009-10-04 Completed [facility] Polysaccharide, 00:00:00 [facility] PPSV23 (PNEUMOVAX) [facility] Pneumococcal 2009-10-04 Completed [facility] Polysaccharide, 00:00:00 [facility] PPSV23 (PNEUMOVAX) [facility] Pneumococcal 2009-10-04 Completed [facility] Polysaccharide, 00:00:00 [facility] PPSV23 (PNEUMOVAX) [facility] Pneumococcal 2009-10-04 Completed [facility] Polysaccharide, 00:00:00 [facility] PPSV23 (PNEUMOVAX) [facility] Pneumococcal 2009-10-04 Completed [facility] Polysaccharide, 00:00:00 [facility] PPSV23 (PNEUMOVAX) [facility] Pneumococcal 2009-10-04 Completed [facility] Polysaccharide, 00:00:00 [facility] PPSV23 (PNEUMOVAX) [facility] Pneumococcal 2009-10-04 Completed [facility] Polysaccharide, 00:00:00 [facility] PPSV23 (PNEUMOVAX) [facility] Pneumococcal 2009-10-04 Completed [facility] Polysaccharide, 00:00:00 [facility] PPSV23 (PNEUMOVAX) [facility] Pneumococcal 2009-10-04 Completed [facility] Polysaccharide, 00:00:00 [facility] PPSV23 (PNEUMOVAX) [facility] Pneumococcal 2009-10-04 Completed [facility] Polysaccharide, 00:00:00 [facility] PPSV23 (PNEUMOVAX) [facility] Pneumococcal 2009-10-04 Completed [facility] Polysaccharide, 00:00:00 [facility] PPSV23 (PNEUMOVAX) [facility] Pneumococcal 2009-10-04 Completed [facility] Polysaccharide, 00:00:00 [facility] PPSV23 (PNEUMOVAX) [facility] Pneumococcal 2009-10-04 Completed [facility] Polysaccharide, 00:00:00 [facility] PPSV23 (PNEUMOVAX) [facility] Pneumococcal 2009-10-04 Completed [facility] Polysaccharide, 00:00:00 [facility] PPSV23 (PNEUMOVAX) [facility] Pneumococcal 2009-10-04 Completed [facility] Polysaccharide, 00:00:00 [facility] PPSV23 (PNEUMOVAX) [facility] Pneumococcal 2009-10-04 Completed [facility] Polysaccharide, 00:00:00 [facility] PPSV23 (PNEUMOVAX) [facility] Pneumococcal 2009-10-04 Completed [facility] Polysaccharide, 00:00:00 [facility] PPSV23 (PNEUMOVAX) [facility] Pneumococcal 2009-10-04 Completed [facility] Polysaccharide, 00:00:00 [facility] PPSV23 (PNEUMOVAX) [facility] Pneumococcal 2009-10-04 Completed [facility] Polysaccharide, 00:00:00 [facility] PPSV23 (PNEUMOVAX) [facility] Pneumococcal 2009-10-04 Completed [facility] Polysaccharide, 00:00:00 [facility] PPSV23 (PNEUMOVAX) [facility] Pneumococcal 2009-10-04 Completed [facility] Polysaccharide, 00:00:00 [facility] PPSV23 (PNEUMOVAX) [facility] Pneumococcal 2009-10-04 Completed [facility] Polysaccharide, 00:00:00 [facility] PPSV23 (PNEUMOVAX) [facility] Pneumococcal 2009-10-04 Completed [facility] Polysaccharide, 00:00:00 [facility] PPSV23 (PNEUMOVAX) [facility] Pneumococcal 2009-10-04 Completed [facility] Polysaccharide, 00:00:00 [facility] PPSV23 (PNEUMOVAX) [facility] Pneumococcal 2009-10-04 Completed [facility] Polysaccharide, 00:00:00 [facility] PPSV23 (PNEUMOVAX) [facility] Pneumococcal 2009-10-04 Completed [facility] Polysaccharide, 00:00:00 [facility] PPSV23 (PNEUMOVAX) [facility] Pneumococcal 2009-10-04 Completed [facility] Polysaccharide, 00:00:00 [facility] PPSV23 (PNEUMOVAX) [facility] Pneumococcal 2009-10-04 Completed [facility] Polysaccharide, 00:00:00 [facility] PPSV23 (PNEUMOVAX) [facility] Pneumococcal 2009-10-04 Completed [facility] Polysaccharide, 00:00:00 [facility] PPSV23 (PNEUMOVAX) [facility] Pneumococcal 2009-10-04 Completed [facility] Polysaccharide, 00:00:00 [facility] PPSV23 (PNEUMOVAX) [facility] Pneumococcal 2009-10-04 Completed [facility] Polysaccharide, 00:00:00 [facility] PPSV23 (PNEUMOVAX) [facility] Pneumococcal 2009-10-04 Completed [facility] Polysaccharide, 00:00:00 [facility] PPSV23 (PNEUMOVAX) [facility] Pneumococcal 2009-10-04 Completed [facility] Polysaccharide, 00:00:00 [facility] PPSV23 (PNEUMOVAX) [facility] Pneumococcal 2009-10-04 Completed [facility] Polysaccharide, 00:00:00 [facility] PPSV23 (PNEUMOVAX) [facility] Pneumococcal 2009-10-04 Completed [facility] Polysaccharide, 00:00:00 [facility] PPSV23 (PNEUMOVAX) [facility] Pneumococcal 2009-10-04 Completed [facility] Polysaccharide, 00:00:00 [facility] PPSV23 (PNEUMOVAX) [facility] Pneumococcal 2009-10-04 Completed [facility] Polysaccharide, 00:00:00 [facility] PPSV23 (PNEUMOVAX) [facility] Pneumococcal 2009-10-04 Completed [facility] Polysaccharide, 00:00:00 [facility] PPSV23 (PNEUMOVAX) [facility] Pneumococcal 2009-10-04 Completed [facility] Polysaccharide, 00:00:00 [facility] PPSV23 (PNEUMOVAX) [facility] Pneumococcal 2009-10-04 Completed [facility] Polysaccharide, 00:00:00 [facility] PPSV23 (PNEUMOVAX) [facility] Pneumococcal 2009-10-04 Completed [facility] Polysaccharide, 00:00:00 [facility] PPSV23 (PNEUMOVAX) [facility] Pneumococcal 2009-10-04 Completed [facility] Polysaccharide, 00:00:00 [facility] PPSV23 (PNEUMOVAX) [facility] Pneumococcal 2009-10-04 Completed [facility] Polysaccharide, 00:00:00 [facility] PPSV23 (PNEUMOVAX) [facility] Pneumococcal 2009-10-04 Completed [facility] Polysaccharide, 00:00:00 [facility] PPSV23 (PNEUMOVAX) [facility] Pneumococcal 2009-10-04 Completed [facility] Polysaccharide, 00:00:00 [facility] PPSV23 (PNEUMOVAX) [facility] Pneumococcal 2009-10-04 Completed [facility] Polysaccharide, 00:00:00 [facility] PPSV23 (PNEUMOVAX) [facility] Pneumococcal 2009-10-04 Completed [facility] Polysaccharide, 00:00:00 [facility] PPSV23 (PNEUMOVAX) [facility] Pneumococcal 2009-10-04 Completed [facility] Polysaccharide, 00:00:00 [facility] PPSV23 (PNEUMOVAX) [facility] Pneumococcal 2009-10-04 Completed [facility] Polysaccharide, 00:00:00 [facility] PPSV23 (PNEUMOVAX) [facility] Pneumococcal 2009-10-04 Completed [facility] Polysaccharide, 00:00:00 [facility] PPSV23 (PNEUMOVAX) [facility] Pneumococcal 2009-10-04 Completed [facility] Polysaccharide, 00:00:00 [facility] PPSV23 (PNEUMOVAX) [facility] Pneumococcal 2009-10-04 Completed [facility] Polysaccharide, 00:00:00 [facility] PPSV23 (PNEUMOVAX) [facility] Pneumococcal 2009-10-04 Completed [facility] Polysaccharide, 00:00:00 [facility] PPSV23 (PNEUMOVAX) [facility] Pneumococcal 2009-10-04 Completed [facility] Polysaccharide, 00:00:00 [facility] PPSV23 (PNEUMOVAX) [facility] Pneumococcal 2009-10-04 Completed [facility] Polysaccharide, 00:00:00 [facility] PPSV23 (PNEUMOVAX) [facility] Pneumococcal 2009-10-04 Completed [facility] Polysaccharide, 00:00:00 [facility] PPSV23 (PNEUMOVAX) [facility] Pneumococcal 2009-10-04 Completed [facility] Polysaccharide, 00:00:00 [facility] PPSV23 (PNEUMOVAX) [facility] Pneumococcal 2009-10-04 Completed [facility] Polysaccharide, 00:00:00 [facility] PPSV23 (PNEUMOVAX) [facility] Pneumococcal 2009-10-04 Completed [facility] Polysaccharide, 00:00:00 [facility] PPSV23 (PNEUMOVAX) [facility] Pneumococcal 2009-10-04 Completed [facility] Polysaccharide, 00:00:00 [facility] PPSV23 (PNEUMOVAX) [facility] Pneumococcal 2009-10-04 Completed [facility] Polysaccharide, 00:00:00 [facility] PPSV23 (PNEUMOVAX) [facility] Pneumococcal 2009-10-04 Completed [facility] Polysaccharide, 00:00:00 [facility] PPSV23 (PNEUMOVAX) [facility] Pneumococcal 2009-10-04 Completed [facility] Polysaccharide, 00:00:00 [facility] PPSV23 (PNEUMOVAX) [facility] Pneumococcal 2009-10-04 Completed [facility] Polysaccharide, 00:00:00 [facility] PPSV23 (PNEUMOVAX) [facility] Pneumococcal 2009-10-04 Completed [facility] Polysaccharide, 00:00:00 [facility] PPSV23 (PNEUMOVAX) [facility] Pneumococcal 2009-10-04 Completed [facility] Polysaccharide, 00:00:00 [facility] PPSV23 (PNEUMOVAX) [facility] Pneumococcal 2009-10-04 Completed [facility] Polysaccharide, 00:00:00 [facility] PPSV23 (PNEUMOVAX) [facility] Pneumococcal 2009-10-04 Completed [facility] Polysaccharide, 00:00:00 [facility] PPSV23 (PNEUMOVAX) [facility] Pneumococcal 2009-10-04 Completed [facility] Polysaccharide, 00:00:00 [facility] PPSV23 (PNEUMOVAX) [facility] Pneumococcal 2009-10-04 Completed [facility] Polysaccharide, 00:00:00 [facility] PPSV23 (PNEUMOVAX) [facility] Pneumococcal 2009-10-04 Completed [facility] Polysaccharide, 00:00:00 [facility] PPSV23 (PNEUMOVAX) [facility] Pneumococcal 2009-10-04 Completed [facility] Polysaccharide, 00:00:00 [facility] PPSV23 (PNEUMOVAX) [facility] Pneumococcal 2009-10-04 Completed [facility] Polysaccharide, 00:00:00 [facility] PPSV23 (PNEUMOVAX) [facility] Pneumococcal 2009-10-04 Completed [facility] Polysaccharide, 00:00:00 [facility] PPSV23 (PNEUMOVAX) [facility] Pneumococcal 2009-10-04 Completed [facility] Polysaccharide, 00:00:00 [facility] PPSV23 (PNEUMOVAX) [facility] Pneumococcal 2009-10-04 Completed [facility] Polysaccharide, 00:00:00 [facility] PPSV23 (PNEUMOVAX) [facility] Pneumococcal 2009-10-04 Completed [facility] Polysaccharide, 00:00:00 [facility] PPSV23 (PNEUMOVAX) [facility] Pneumococcal 2009-10-04 Completed [facility] Polysaccharide, 00:00:00 [facility] PPSV23 (PNEUMOVAX) [facility] Pneumococcal 2009-10-04 Completed [facility] Polysaccharide, 00:00:00 [facility] PPSV23 (PNEUMOVAX) [facility] Pneumococcal 2009-10-04 Completed [facility] Polysaccharide, 00:00:00 [facility] PPSV23 (PNEUMOVAX) [facility] Pneumococcal 2009-10-04 Completed [facility] Polysaccharide, 00:00:00 [facility] PPSV23 (PNEUMOVAX) [facility] Pneumococcal 2009-10-04 Completed [facility] Polysaccharide, 00:00:00 [facility] PPSV23 (PNEUMOVAX) [facility] Pneumococcal 2009-10-04 Completed [facility] Polysaccharide, 00:00:00 [facility] PPSV23 (PNEUMOVAX) [facility] Pneumococcal 2009-10-04 Completed [facility] Polysaccharide, 00:00:00 [facility] PPSV23 (PNEUMOVAX) [facility] Pneumococcal 2009-10-04 Completed [facility] Polysaccharide, 00:00:00 [facility] PPSV23 (PNEUMOVAX) [facility] Pneumococcal 2009-10-04 Completed [facility] Polysaccharide, 00:00:00 [facility] PPSV23 (PNEUMOVAX) [facility] Pneumococcal 2009-10-04 Completed [facility] Polysaccharide, 00:00:00 [facility] PPSV23 (PNEUMOVAX) [facility] Pneumococcal 2009-10-04 Completed [facility] Polysaccharide, 00:00:00 [facility] PPSV23 (PNEUMOVAX) [facility] Pneumococcal 2009-10-04 Completed [facility] Polysaccharide, 00:00:00 [facility] PPSV23 (PNEUMOVAX) [facility] Pneumococcal 2009-10-04 Completed [facility] Polysaccharide, 00:00:00 [facility] PPSV23 (PNEUMOVAX) [facility] Pneumococcal 2009-10-04 Completed [facility] Polysaccharide, 00:00:00 [facility] PPSV23 (PNEUMOVAX) [facility] Pneumococcal 2009-10-04 Completed [facility] Polysaccharide, 00:00:00 [facility] PPSV23 (PNEUMOVAX) [facility] Pneumococcal 2009-10-04 Completed [facility] Polysaccharide, 00:00:00 [facility] PPSV23 (PNEUMOVAX) [facility] Pneumococcal 2009-10-04 Completed [facility] Polysaccharide, 00:00:00 [facility] PPSV23 (PNEUMOVAX) [facility] Pneumococcal 2009-10-04 Completed [facility] Polysaccharide, 00:00:00 [facility] PPSV23 (PNEUMOVAX) [facility] Pneumococcal 2009-10-04 Completed [facility] Polysaccharide, 00:00:00 [facility] PPSV23 (PNEUMOVAX) [facility] Pneumococcal 2009-10-04 Completed [facility] Polysaccharide, 00:00:00 [facility] PPSV23 (PNEUMOVAX) [facility] Pneumococcal 2009-10-04 Completed [facility] Polysaccharide, 00:00:00 [facility] PPSV23 (PNEUMOVAX) [facility] Pneumococcal 2009-10-04 Completed [facility] Polysaccharide, 00:00:00 [facility] PPSV23 (PNEUMOVAX) [facility] Pneumococcal 2009-10-04 Completed [facility] Polysaccharide, 00:00:00 [facility] PPSV23 (PNEUMOVAX) [facility] Pneumococcal 2009-10-04 Completed [facility] Polysaccharide, 00:00:00 [facility] PPSV23 (PNEUMOVAX) [facility] Pneumococcal 2009-10-04 Completed [facility] Polysaccharide, 00:00:00 [facility] PPSV23 (PNEUMOVAX) [facility] Pneumococcal 2009-10-04 Completed [facility] Polysaccharide, 00:00:00 [facility] PPSV23 (PNEUMOVAX) [facility] Hep B, Adol or Pedi 2009-08-30 Completed [facility] rs[facility] of Dosage 00:00:00 [facility] Influenza Virus 2009-08-30 Completed [facility] Vaccine 00:00:00 [facility] Hep B, Adol or Pedi 2009-08-30 Completed [facility] rs[facility] of Dosage 00:00:00 [facility] Influenza Virus 2009-08-30 Completed [facility] Vaccine 00:00:00 [facility] Hep B, Adol or Pedi 2009-08-30 Completed [facility] rs[facility] of Dosage 00:00:00 [facility] Influenza Virus 2009-08-30 Completed [facility] Vaccine 00:00:00 [facility] Hep B, Adol or Pedi 2009-08-30 Completed [facility] rs[facility] of Dosage 00:00:00 [facility] Influenza Virus 2009-08-30 Completed [facility] Vaccine 00:00:00 [facility] Hep B, Adol or Pedi 2009-08-30 Completed [facility] rs[facility] of Dosage 00:00:00 [facility] Influenza Virus 2009-08-30 Completed [facility] Vaccine 00:00:00 [facility] Hep B, Adol or Pedi 2009-08-30 Completed [facility] of Dosage 00:00:00 [facility] Influenza Virus 2009-08-30 Completed [facility] Vaccine 00:00:00 [facility] Hep B, Adol or Pedi 2009-08-30 Completed [facility] of Dosage 00:00:00 [facility] Influenza Virus 2009-08-30 Completed [facility] Vaccine 00:00:00 [facility] Hep B, Adol or Pedi 2009-08-30 Completed [facility] of Dosage 00:00:00 [facility] Influenza Virus 2009-08-30 Completed [facility] Vaccine 00:00:00 [facility] Hep B, Adol or Pedi 2009-08-30 Completed [facility] of Dosage 00:00:00 [facility] Influenza Virus 2009-08-30 Completed [facility] Vaccine 00:00:00 [facility] Hep B, Adol or Pedi 2009-08-30 Completed [facility] of Dosage 00:00:00 [facility] Influenza Virus 2009-08-30 Completed [facility] Vaccine 00:00:00 [facility] Hep B, Adol or Pedi 2009-08-30 Completed [facility] Dosage 00:00:00 [facility] Influenza Virus 2009-08-30 Completed [facility] Vaccine 00:00:00 [facility] Hep B, Adol or Pedi 2009-08-30 Completed [facility] of Dosage 00:00:00 [facility] Influenza Virus 2009-08-30 Completed [facility] Vaccine 00:00:00 [facility] Hep B, Adol or Pedi 2009-08-30 Completed [facility] Dosage 00:00:00 [facility] Influenza Virus 2009-08-30 Completed [facility] Vaccine 00:00:00 [facility] Hep B, Adol or Pedi 2009-08-30 Completed [facility] of Dosage 00:00:00 [facility] Influenza Virus 2009-08-30 Completed [facility] Vaccine 00:00:00 [facility] Hep B, Adol or Pedi 2009-08-30 Completed [facility] of Dosage 00:00:00 [facility] Influenza Virus 2009-08-30 Completed [facility] Vaccine 00:00:00 [facility] Hep B, Adol or Pedi 2009-08-30 Completed [facility] of Dosage 00:00:00 [facility] Influenza Virus 2009-08-30 Completed [facility] Vaccine 00:00:00 [facility] Hep B, Adol or Pedi 2009-08-30 Completed [facility] of Dosage 00:00:00 [facility] Influenza Virus 2009-08-30 Completed [facility] Vaccine 00:00:00 [facility] Hep B, Adol or Pedi 2009-08-30 Completed [facility] of Dosage 00:00:00 [facility] Influenza Virus 2009-08-30 Completed [facility] Vaccine 00:00:00 [facility] Hep B, Adol or Pedi 2009-08-30 Completed [facility] of Dosage 00:00:00 [facility] Influenza Virus 2009-08-30 Completed [facility] Vaccine 00:00:00 [facility] Hep B, Adol or Pedi 2009-08-30 Completed [facility] of Dosage 00:00:00 [facility] Influenza Virus 2009-08-30 Completed [facility] Vaccine 00:00:00 [facility] Hep B, Adol or Pedi 2009-08-30 Completed [facility] of Dosage 00:00:00 [facility] Influenza Virus 2009-08-30 Completed [facility] Vaccine 00:00:00 [facility] Hep B, Adol or Pedi 2009-08-30 Completed [facility] of Dosage 00:00:00 [facility] Influenza Virus 2009-08-30 Completed [facility] Vaccine 00:00:00 [facility] Hep B, Adol or Pedi 2009-08-30 Completed [facility] of Dosage 00:00:00 [facility] Influenza Virus 2009-08-30 Completed [facility] Vaccine 00:00:00 [facility] Hep B, Adol or Pedi 2009-08-30 Completed [facility] of Dosage 00:00:00 [facility] Influenza Virus 2009-08-30 Completed [facility] Vaccine 00:00:00 [facility] Hep B, Adol or Pedi 2009-08-30 Completed [facility] Dosage 00:00:00 [facility] Influenza Virus 2009-08-30 Completed [facility] Vaccine 00:00:00 [facility] Hep B, Adol or Pedi 2009-08-30 Completed [facility] of Dosage 00:00:00 [facility] Influenza Virus 2009-08-30 Completed [facility] Vaccine 00:00:00 [facility] Hep B, Adol or Pedi 2009-08-30 Completed [facility] Dosage 00:00:00 [facility] Influenza Virus 2009-08-30 Completed [facility] Vaccine 00:00:00 [facility] Hep B, Adol or Pedi 2009-08-30 Completed [facility] Dosage 00:00:00 [facility] Influenza Virus 2009-08-30 Completed [facility] Vaccine 00:00:00 [facility] Hep B, Adol or Pedi 2009-08-30 Completed [facility] of Dosage 00:00:00 [facility] Influenza Virus 2009-08-30 Completed [facility] Vaccine 00:00:00 [facility] Hep B, Adol or Pedi 2009-08-30 Completed [facility] of Dosage 00:00:00 [facility] Influenza Virus 2009-08-30 Completed [facility] Vaccine 00:00:00 [facility] Hep B, Adol or Pedi 2009-08-30 Completed [facility] Dosage 00:00:00 [facility] Influenza Virus 2009-08-30 Completed [facility] Vaccine 00:00:00 [facility] Hep B, Adol or Pedi 2009-08-30 Completed [facility] of Dosage 00:00:00 [facility] Influenza Virus 2009-08-30 Completed [facility] Vaccine 00:00:00 [facility] Hep B, Adol or Pedi 2009-08-30 Completed [facility] Dosage 00:00:00 [facility] Influenza Virus 2009-08-30 Completed [facility] 00:00:00 [facility] [facility] B, Adol or Pedi 2009-08-30 Completed [facility] D[facility]age 00:00:00 [facility] Influenza Virus 2009-08-30 Completed [facility]:00[facility]00 [facility] Hep B, Adol or Pedi 2009-08-30 Completed [facility] Dosage 00:00:00 [facility] Influenza Virus 2009-08-30 Completed [facility] 00:00:00 [facility] Hep B, Adol or Pedi 2009-08-30 Completed [facility] Dosage 00:00:00 [facility] Influenza Virus 2009-08-30 Completed [facility] 00:00:00 [facility] Hep B, Adol or Pedi 2009-08-30 Completed [facility] Dosage 00:00:00 [facility] Influenza Virus 2009-08-30 Completed [facility] 00:00:00 [facility] Hep B, Adol or Pedi 2009-08-30 Completed [facility] Dosage 00:00:00 [facility] Influenza Virus 2009-08-30 Completed [facility] 00:00:00 [facility] Hep B, Adol or Pedi 2009-08-30 Completed [facility] Dosage 00:00:00 [facility] Influenza Virus 2009-08-30 Completed [facility] 00:00:00 [facility] Hep B, Adol or Pedi 2009-08-30 Completed [facility] Dosage 00:00:00 [facility] Influenza Virus 2009-08-30 Completed [facility] 00:00:00 [facility] Hep B, Adol or Pedi 2009-08-30 Completed [facility] Dosage 00:00:00 [facility] Influenza Virus 2009-08-30 Completed [facility] 00:00:00 [facility] Hep B, Adol or Pedi 2009-08-30 Completed [facility] Dos[facility] 00:00:00 [facility] Influenza Virus 2009-08-30 Completed [facility] 00:00:00 [facility] Hep B, Adol or Pedi 2009-08-30 Completed [facility] Dosage 00:00:00 [facility] Influenza Virus 2009-08-30 Completed [facility] 00:00:00 [facility] Hep B, Adol or Pedi 2009-08-30 Completed [facility] Dos[facility] 00:00:00 [facility] Influenza Virus 2009-08-30 Completed [facility] 00:00:00 [facility] Hep B, Adol or Pedi 2009-08-30 Completed [facility] Dos[facility] 00:00:00 [facility] Influenza Virus 2009-08-30 Completed [facility] 00:00:00 [facility] Hep B, Adol or Pedi 2009-08-30 Completed [facility] Dos[facility] 00:00:00 [facility] Influenza Virus 2009-08-30 Completed [facility] 00:00:00 [facility] Hep B, Adol or Pedi 2009-08-30 Completed [facility] Dosage 00:00:00 [facility] Influenza Virus 2009-08-30 Completed [facility] 00:00:00 [facility] Hep B, Adol or Pedi 2009-08-30 Completed [facility] Dos[facility] 00:00:00 [facility] Influenza Virus 2009-08-30 Completed [facility] 00:00:00 [facility] Hep B, Adol or Pedi 2009-08-30 Completed [facility] Dos[facility] 00:00:00 [facility] Influenza Virus 2009-08-30 Completed [facility] 00:00:00 [facility] Hep B, Adol or Pedi 2009-08-30 Completed [facility] Dosage 00:00:00 [facility] Influenza Virus 2009-08-30 Completed [facility] 00:00:00 [facility] Hep B, Adol or Pedi 2009-08-30 Completed [facility] Dos[facility] 00:00:00 [facility] Influenza Virus 2009-08-30 Completed [facility] 00:00:00 [facility] Hep B, Adol or Pedi 2009-08-30 Completed [facility] Dosage 00:00:00 [facility] Influenza Virus 2009-08-30 Completed [facility] 00:00:00 [facility] Hep B, Adol or Pedi 2009-08-30 Completed [facility] Dosage 00:00:00 [facility] Influenza Virus 2009-08-30 Completed [facility] 00:00:00 [facility] Hep B, Adol or Pedi 2009-08-30 Completed [facility] Dosage 00:00:00 [facility] Influenza Virus 2009-08-30 Completed [facility] 00:00:00 [facility] Hep B, Adol or Pedi 2009-08-30 Completed [facility] Dosage 00:00:00 [facility] Influenza Virus 2009-08-30 Completed [facility] 00:00:00 [facility] Hep B, Adol or Pedi 2009-08-30 Completed [facility] Dosage 00:00:00 [facility] Influenza Virus 2009-08-30 Completed [facility] 00:00:00 [facility] Hep B, Adol or Pedi 2009-08-30 Completed [facility] Dosage 00:00:00 [facility] Influenza Virus 2009-08-30 Completed [facility] 00:00:00 [facility] Hep B, Adol or Pedi 2009-08-30 Completed [facility] Dos[facility] 00:00:00 [facility] Influenza Virus 2009-08-30 Completed [facility] 00:00:00 [facility] Hep B, Adol or Pedi 2009-08-30 Completed [facility] Dos[facility] 00:00:00 [facility] Influenza Virus 2009-08-30 Completed [facility] 00:00:00 [facility] Hep B, Adol or Pedi 2009-08-30 Completed [facility] Dos[facility] 00:00:00 [facility] Influenza Virus 2009-08-30 Completed [facility] 00:00:00 [facility] Hep B, Adol or Pedi 2009-08-30 Completed [facility] Dosage 00:00:00 [facility] Influenza Virus 2009-08-30 Completed [facility] 00:00:00 [facility] Hep B, Adol or Pedi 2009-08-30 Completed [facility] Dos[facility] 00:00:00 [facility] Influenza Virus 2009-08-30 Completed [facility] 00:00:00 [facility] Hep B, Adol or Pedi 2009-08-30 Completed [facility] Dos[facility] 00:00:00 [facility] Influenza Virus 2009-08-30 Completed [facility] 00:00:00 [facility] Hep B, Adol or Pedi 2009-08-30 Completed [facility] Dos[facility] 00:00:00 [facility] Influenza Virus 2009-08-30 Completed [facility] 00:00:00 [facility] Hep B, Adol or Pedi 2009-08-30 Completed [facility] Dosage 00:00:00 [facility] Influenza Virus 2009-08-30 Completed [facility] 00:00:00 [facility] Hep B, Adol or Pedi 2009-08-30 Completed [facility] Dosage 00:00:00 [facility] Influenza Virus 2009-08-30 Completed [facility] 00:00:00 [facility] Hep B, Adol or Pedi 2009-08-30 Completed [facility] Dos[facility] 00:00:00 [facility] Influenza Virus 2009-08-30 Completed [facility] 00:00:00 [facility] Hep B, Adol or Pedi 2009-08-30 Completed [facility] Dosage 00:00:00 [facility] Influenza Virus 2009-08-30 Completed [facility] 00:00:00 [facility] Hep B, Adol or Pedi 2009-08-30 Completed [facility] Dosage 00:00:00 [facility] Influenza Virus 2009-08-30 Completed [facility] 00:00:00 [facility] Hep B, Adol or Pedi 2009-08-30 Completed [facility] Dos[facility] 00:00:00 [facility] Influenza Virus 2009-08-30 Completed [facility] 00:00:00 [facility] Hep B, Adol or Pedi 2009-08-30 Completed [facility] Dos[facility] 00:00:00 [facility] Influenza Virus 2009-08-30 Completed [facility] 00:00:00 [facility] Hep B, Adol or Pedi 2009-08-30 Completed [facility] Dosage 00:00:00 [facility] Influenza Virus 2009-08-30 Completed [facility] 00:00:00 [facility] Hep B, Adol or Pedi 2009-08-30 Completed [facility] Dosage 00:00:00 [facility] Influenza Virus 2009-08-30 Completed [facility] 00:00:00 [facility] Hep B, Adol or Pedi 2009-08-30 Completed [facility] Dos[facility] 00:00:00 [facility] Influenza Virus 2009-08-30 Completed [facility] 00:00:00 [facility] Hep B, Adol or Pedi 2009-08-30 Completed [facility] Dos[facility] 00:00:00 [facility] Influenza Virus 2009-08-30 Completed [facility] 00:00:00 [facility] Hep B, Adol or Pedi 2009-08-30 Completed [facility] Dosage 00:00:00 [facility] Influenza Virus 2009-08-30 Completed [facility] 00:00:00 [facility] Hep B, Adol or Pedi 2009-08-30 Completed [facility] Dosage 00:00:00 [facility] Influenza Virus 2009-08-30 Completed [facility] 00:00:00 [facility] Hep B, Adol or Pedi 2009-08-30 Completed [facility] Dos[facility] 00:00:00 [facility] Influenza Virus 2009-08-30 Completed [facility] 00:00:00 [facility] Hep B, Adol or Pedi 2009-08-30 Completed [facility] Dosage 00:00:00 [facility] Influenza Virus 2009-08-30 Completed [facility] 00:00:00 [facility] Hep B, Adol or Pedi 2009-08-30 Completed [facility] Dosage 00:00:00 [facility] Influenza Virus 2009-08-30 Completed [facility] 00:00:00 [facility] Hep B, Adol or Pedi 2009-08-30 Completed [facility] Dosage 00:00:00 [facility] Influenza Virus 2009-08-30 Completed [facility] 00:00:00 [facility] Hep B, Adol or Pedi 2009-08-30 Completed [facility] Dosage 00:00:00 [facility] Influenza Virus 2009-08-30 Completed [facility] 00:00:00 [facility] Hep B, Adol or Pedi 2009-08-30 Completed [facility] Dosage 00:00:00 [facility] Influenza Virus 2009-08-30 Completed [facility] 00:00:00 [facility] Hep B, Adol or Pedi 2009-08-30 Completed [facility] Dosage 00:00:00 [facility] Influenza Virus 2009-08-30 Completed [facility] 00:00:00 [facility] Hep B, Adol or Pedi 2009-08-30 Completed [facility] Dosage 00:00:00 [facility] Influenza Virus 2009-08-30 Completed [facility] 00:00:00 [facility] Hep B, Adol or Pedi 2009-08-30 Completed [facility] Dosage 00:00:00 [facility] Influenza Virus 2009-08-30 Completed [facility] 00:00:00 [facility] Hep B, Adol or Pedi 2009-08-30 Completed [facility] Dosage 00:00:00 [facility] Influenza Virus 2009-08-30 Completed [facility] 00:00:00 [facility] Hep B, Adol or Pedi 2009-08-30 Completed [facility] Dosage 00:00:00 [facility] Influenza Virus 2009-08-30 Completed [facility] 00:00:00 [facility] Hep B, Adol or Pedi 2009-08-30 Completed [facility] Dosage 00:00:00 [facility] Influenza Virus 2009-08-30 Completed [facility] 00:00:00 [facility] Hep B, Adol or Pedi 2009-08-30 Completed [facility] Dosage 00:00:00 [facility] Influenza Virus 2009-08-30 Completed [facility] 00:00:00 [facility] Hep B, Adol or Pedi 2009-08-30 Completed [facility] Dosage 00:00:00 [facility] Influenza Virus 2009-08-30 Completed [facility] 00:00:00 [facility] Hep B, Adol or Pedi 2009-08-30 Completed [facility] Dosage 00:00:00 [facility] Influenza Virus 2009-08-30 Completed [facility] 00:00:00 [facility] Hep B, Adol or Pedi 2009-08-30 Completed [facility] Dosage 00:00:00 [facility] Influenza Virus 2009-08-30 Completed [facility] 00:00:00 [facility] Hep B, Adol or Pedi 2009-08-30 Completed [facility] Dosage 00:00:00 [facility] Influenza Virus 2009-08-30 Completed [facility] 00:00:00 [facility] Hep B, Adol or Pedi 2009-08-30 Completed [facility] Dosage 00:00:00 [facility] Influenza Virus 2009-08-30 Completed [facility] 00:00:00 [facility] Hep B, Adol or Pedi 2009-08-30 Completed [facility] Dosage 00:00:00 [facility] Influenza Virus 2009-08-30 Completed [facility] 00:00:00 [facility] Hep B, Adol or Pedi 2009-08-30 Completed [facility] Dosage 00:00:00 [facility] Influenza Virus 2009-08-30 Completed [facility] 00:00:00 [facility] Hep B, Adol or Pedi 2009-08-30 Completed [facility] Dosage 00:00:00 [facility] Influenza Virus 2009-08-30 Completed [facility] 00:00:00 [facility] Hep B, Adol or Pedi 2009-08-30 Completed [facility] Dosage 00:00:00 [facility] Influenza Virus 2009-08-30 Completed [facility] 00:00:00 [facility] Hep B, Adol or Pedi 2009-08-30 Completed [facility] Dosage 00:00:00 [facility] Influenza Virus 2009-08-30 Completed [facility] 00:00:00 [facility] Hep B, Adol or Pedi 2009-08-30 Completed [facility] Dosage 00:00:00 [facility] Influenza Virus 2009-08-30 Completed [facility] 00:00:00 [facility] Hep B, Adol or Pedi 2009-08-30 Completed [facility] Dos[facility] 00:00:00 [facility] Influenza Virus 2009-08-30 Completed [facility] 00:00:00 [facility] Hep B, Adol or Pedi 2009-08-30 Completed [facility] Dosage 00:00:00 [facility] Influenza Virus 2009-08-30 Completed [facility] 00:00:00 [facility] Hep B, Adol or Pedi 2009-08-30 Completed [facility] Dosage 00:00:00 [facility] Influenza Virus 2009-08-30 Completed [facility] 00:00:00 [facility] Hep B, Adol or Pedi 2009-08-30 Completed [facility] Dosage 00:00:00 [facility] Influenza Virus 2009-08-30 Completed [facility] 00:00:00 [facility] Hep B, Adol or Pedi 2009-08-30 Completed [facility] Dosage 00:00:00 [facility] Influenza Virus 2009-08-30 Completed [facility] 00:00:00 [facility] Hep B, Adol or Pedi 2009-08-30 Completed [facility] Dosage 00:00:00 [facility] Influenza Virus 2009-08-30 Completed [facility] 00:00:00 [facility] Hep B, Adol or Pedi 2009-08-30 Completed [facility] Dosage 00:00:00 [facility] Influenza Virus 2009-08-30 Completed [facility] 00:00:00 [facility] Hep B, Adol or Pedi 2009-08-02 Completed [facility] Dosage 00:00:00 [facility] Hep B, Adol or Pedi 2009-08-02 Completed [facility] Dosage 00:00:00 [facility] Hep B, Adol or Pedi 2009-08-02 Completed [facility] Dosage 00:00:00 [facility] Hep B, Adol or Pedi 2009-08-02 Completed [facility] Dosage 00:00:00 [facility] Hep B, Adol or Pedi 2009-08-02 Completed [facility] Dosage 00:00:00 [facility] Hep B, Adol or Pedi 2009-08-02 Completed [facility] Dosage 00:00:00 [facility] Hep B, Adol or Pedi 2009-08-02 Completed [facility] Dosage 00:00:00 [facility] Hep B, Adol or Pedi 2009-08-02 Completed [facility] Dosage 00:00:00 [facility] Hep B, Adol or Pedi 2009-08-02 Completed [facility] Dosage 00:00:00 [facility] Hep B, Adol or Pedi 2009-08-02 Completed [facility] Dosage 00:00:00 [facility] Hep B, Adol or Pedi 2009-08-02 Completed [facility] Dosage 00:00:00 [facility] Hep B, Adol or Pedi 2009-08-02 Completed [facility] Dosage 00:00:00 [facility] Hep B, Adol or Pedi 2009-08-02 Completed [facility] Dos[facility] 00:00:00 [facility] Hep B, Adol or Pedi 2009-08-02 Completed [facility] Dosage 00:00:00 [facility] Hep B, Adol or Pedi 2009-08-02 Completed [facility] Dosage 00:00:00 [facility] Hep B, Adol or Pedi 2009-08-02 Completed [facility] Dosage 00:00:00 [facility] Hep B, Adol or Pedi 2009-08-02 Completed [facility] Dos[facility] 00:00:00 [facility] Hep B, Adol or Pedi 2009-08-02 Completed [facility] Dos[facility] 00:00:00 [facility] Hep B, Adol or Pedi 2009-08-02 Completed [facility] Dos[facility] 00:00:00 [facility] Hep B, Adol or Pedi 2009-08-02 Completed [facility]os[facility] 00:00:00 [facility] Hep B, Adol or Pedi 2009-08-02 Completed [facility] 00:00:00 [facility] Hep B, Adol or Pedi 2009-08-02 Completed [facility]os[facility] 00:00:00 [facility] Hep B, Adol or Pedi 2009-08-02 Completed [facility]os[facility] 00:00:00 [facility] Hep B, Adol or Pedi 2009-08-02 Completed [facility] Dos[facility] 00:00:00 [facility] Hep B, Adol or Pedi 2009-08-02 Completed [facility] 00:00:00 [facility] Hep B, Adol or Pedi 2009-08-02 Completed [facility] Dos[facility] 00:00:00 [facility] Hep B, Adol or Pedi 2009-08-02 Completed [facility] Dos[facility] 00:00:00 [facility] Hep B, Adol or Pedi 2009-08-02 Completed [facility] Dos[facility] 00:00:00 [facility] Hep B, Adol or Pedi 2009-08-02 Completed [facility] Dos[facility] 00:00:00 [facility] Hep B, Adol or Pedi 2009-08-02 Completed [facility] Dos[facility] 00:00:00 [facility] Hep B, Adol or Pedi 2009-08-02 Completed [facility] Dos[facility] 00:00:00 [facility] Hep B, Adol or Pedi 2009-08-02 Completed [facility] Dos[facility] 00:00:00 [facility] Hep B, Adol or Pedi 2009-08-02 Completed [facility] Dos[facility] 00:00:00 [facility] Hep B, Adol or Pedi 2009-08-02 Completed [facility] Dos[facility] 00:00:00 [facility] Hep B, Adol or Pedi 2009-08-02 Completed [facility] Dos[facility] 00:00:00 [facility] Hep B, Adol or Pedi 2009-08-02 Completed [facility] Dos[facility] 00:00:00 [facility] Hep B, Adol or Pedi 2009-08-02 Completed [facility] Dos[facility] 00:00:00 [facility] Hep B, Adol or Pedi 2009-08-02 Completed [facility] 00:00:00 [facility] Hep B, Adol or Pedi 2009-08-02 Completed [facility] Dos[facility] 00:00:00 [facility] Hep B, Adol or Pedi 2009-08-02 Completed [facility] 00:00:00 [facility] Hep B, Adol or Pedi 2009-08-02 Completed [facility] 00:00:00 [facility] Hep B, Adol or Pedi 2009-08-02 Completed [facility] 00:00:00 [facility] Hep B, Adol or Pedi 2009-08-02 Completed [facility] 00:00:00 [facility] Hep B, Adol or Pedi 2009-08-02 Completed [facility] 00:00:00 [facility] Hep B, Adol or Pedi 2009-08-02 Completed [facility] 00:00:00 [facility] Hep B, Adol or Pedi 2009-08-02 Completed [facility] 00:00:00 [facility] Hep B, Adol or Pedi 2009-08-02 Completed [facility] 00:00:00 [facility] Hep B, Adol or Pedi 2009-08-02 Completed [facility] 00:00:00 [facility] Hep B, Adol or Pedi 2009-08-02 Completed [facility] 00:00:00 [facility] Hep B, Adol or Pedi 2009-08-02 Completed [facility] 00:00:00 [facility] Hep B, Adol or Pedi 2009-08-02 Completed [facility] D[facility] 00:00:00 [facility] Hep B, Adol or Pedi 2009-08-02 Completed [facility] D[facility] 00:00:00 [facility] Hep B, Adol or Pedi 2009-08-02 Completed [facility] D[facility] 00:00:00 [facility] Hep B, Adol or Pedi 2009-08-02 Completed [facility] D[facility] 00:00:00 [facility] Hep B, Adol or Pedi 2009-08-02 Completed [facility] D[facility] 00:00:00 [facility] Hep B, Adol or Pedi 2009-08-02 Completed [facility] 00:00:00 [facility] Hep B, Adol or Pedi 2009-08-02 Completed [facility] 00:00:00 [facility] Hep B, Adol or Pedi 2009-08-02 Completed [facility] 00:00:00 [facility] Hep B, Adol or Pedi 2009-08-02 Completed [facility] Dos[facility] 00:00:00 [facility] Hep B, Adol or Pedi 2009-08-02 Completed [facility] Dos[facility] 00:00:00 [facility] Hep B, Adol or Pedi 2009-08-02 Completed [facility] Dos[facility] 00:00:00 [facility] Hep B, Adol or Pedi 2009-08-02 Completed [facility] Dos[facility] 00:00:00 [facility] Hep B, Adol or Pedi 2009-08-02 Completed [facility] Dos[facility] 00:00:00 [facility] Hep B, Adol or Pedi 2009-08-02 Completed [facility] Dos[facility] 00:00:00 [facility] Hep B, Adol or Pedi 2009-08-02 Completed [facility] Dos[facility] 00:00:00 [facility] Hep B, Adol or Pedi 2009-08-02 Completed [facility] Dos[facility] 00:00:00 [facility] Hep B, Adol or Pedi 2009-08-02 Completed [facility] Dos[facility] 00:00:00 [facility] Hep B, Adol or Pedi 2009-08-02 Completed [facility] Dosage 00:00:00 [facility] Hep B, Adol or Pedi 2009-08-02 Completed [facility] Dos[facility] 00:00:00 [facility] Hep B, Adol or Pedi 2009-08-02 Completed [facility] Dos[facility] 00:00:00 [facility] Hep B, Adol or Pedi 2009-08-02 Completed [facility] Dosage 00:00:00 [facility] Hep B, Adol or Pedi 2009-08-02 Completed [facility] Dosage 00:00:00 [facility] Hep B, Adol or Pedi 2009-08-02 Completed [facility] Dos[facility] 00:00:00 [facility] Hep B, Adol or Pedi 2009-08-02 Completed [facility] Dos[facility] 00:00:00 [facility] Hep B, Adol or Pedi 2009-08-02 Completed [facility] Dos[facility] 00:00:00 [facility] Hep B, Adol or Pedi 2009-08-02 Completed [facility] Dos[facility] 00:00:00 [facility] Hep B, Adol or Pedi 2009-08-02 Completed [facility] Dos[facility] 00:00:00 [facility] Hep B, Adol or Pedi 2009-08-02 Completed [facility] Dos[facility] 00:00:00 [facility] Hep B, Adol or Pedi 2009-08-02 Completed [facility] Dos[facility] 00:00:00 [facility] Hep B, Adol or Pedi 2009-08-02 Completed [facility] Dosage 00:00:00 [facility] Hep B, Adol or Pedi 2009-08-02 Completed [facility] Dos[facility] 00:00:00 [facility] Hep B, Adol or Pedi 2009-08-02 Completed [facility] Dos[facility] 00:00:00 [facility] Hep B, Adol or Pedi 2009-08-02 Completed [facility] Dos[facility] 00:00:00 [facility] Hep B, Adol or Pedi 2009-08-02 Completed [facility] Dos[facility] 00:00:00 [facility] Hep B, Adol or Pedi 2009-08-02 Completed [facility] Dos[facility] 00:00:00 [facility] Hep B, Adol or Pedi 2009-08-02 Completed [facility] Dosage 00:00:00 [facility] Hep B, Adol or Pedi 2009-08-02 Completed [facility] Dos[facility] 00:00:00 [facility] Hep B, Adol or Pedi 2009-08-02 Completed [facility] Dos[facility] 00:00:00 [facility] Hep B, Adol or Pedi 2009-08-02 Completed [facility] Dosage 00:00:00 [facility] Hep B, Adol or Pedi 2009-08-02 Completed [facility] Dos[facility] 00:00:00 [facility] Hep B, Adol or Pedi 2009-08-02 Completed [facility] Dos[facility] 00:00:00 [facility] Hep B, Adol or Pedi 2009-08-02 Completed [facility] Dos[facility] 00:00:00 [facility] Hep B, Adol or Pedi 2009-08-02 Completed [facility] Dos[facility] 00:00:00 [facility] Hep B, Adol or Pedi 2009-08-02 Completed [facility] D[facility] 00:00:00 [facility] Hep B, Adol or Pedi 2009-08-02 Completed [facility] Dos[facility] 00:00:00 [facility] Hep B, Adol or Pedi 2009-08-02 Completed [facility] Dos[facility] 00:00:00 [facility] Hep B, Adol or Pedi 2009-08-02 Completed [facility] 00:00:00 [facility] Hep B, Adol or Pedi 2009-08-02 Completed [facility] Dosage 00:00:00 [facility] Hep B, Adol or Pedi 2009-08-02 Completed [facility] Dos[facility] 00:00:00 [facility] Hep B, Adol or Pedi 2009-08-02 Completed [facility] Dos[facility] 00:00:00 [facility] Hep B, Adol or Pedi 2009-08-02 Completed [facility] Dos[facility] 00:00:00 [facility] Hep B, Adol or Pedi 2009-08-02 Completed [facility] Dos[facility] 00:00:00 [facility] Hep B, Adol or Pedi 2009-08-02 Completed [facility] D[facility] 00:00:00 [facility] Hep B, Adol or Pedi 2009-08-02 Completed [facility] Dos[facility] 00:00:00 [facility] Hep B, Adol or Pedi 2009-08-02 Completed [facility] Dosage 00:00:00 [facility] Hep B, Adol or Pedi 2009-08-02 Completed [facility] Dosage 00:00:00 [facility] Hep B, Adol or Pedi 2009-08-02 Completed [facility] Dosage 00:00:00 [facility] Hep B, Adol or Pedi 2009-08-02 Completed [facility] of Dosage 00:00:00 [facility] Hep B, Adol or Pedi Unknown Completed [facility] of Dosage [facility] Hep B, Adol or Pedi Unknown Completed [facility] of Dosage [facility] Influenza Virus Unknown Completed [facility]it y of Vaccine [facility] Pneumococcal Unknown Completed University o f Polysaccharide, [facility] ica PPSV23 (PNEUMOVAX) Branch H1n1 Vaccine Unknown Completed University o f [facility] Hep B, Adol or Pedi Unknown Completed [facility]ity of Dosage [facility] Influenza Virus Unknown Completed [facility] Vaccine [facility] Influenza Virus Unknown Completed [facility] Vaccine [facility] Influenza Virus Unknown Completed [facility] Vaccine [facility] Influenza Virus Unknown Completed [facility] Vaccine [facility] Influenza Virus Unknown Completed [facility]it y of Vaccine (3+ yrs) [facility] dical Branch Influenza Virus Unknown Completed [facility] Vaccine Quad ID [place] [facility] 18-64 YRS [facility] Influenza Virus Unknown Completed [facility] Vaccine Quad IM [place] [facility] Multi-dose 6+ MO Branch TDAP Unknown Completed [facility] Influenza Virus Unknown Completed [facility] Vaccine Quad ID [place] [facility] 18-64 YRS Branch Influenza Virus Unknown Completed [facility] Vaccine Quad IM 3+ [facility] Influenza Virus Unknown Completed [facility] of Vaccine Quad .5 mL [facility] IM 6+ MO Branch (FLUZONE/FLULAVAL/F LUARIX) Influenza Virus Unknown Completed [facility] of Vaccine Quad .5 mL [facility] IM 6+ MO Branch (FLUZONE/FLULAVAL/F LUARIX) Pneumococcal 13 Unknown Completed [facility] Conjugate, PCV13 [place] [facility] (Prevnar 13) Branch Influenza Virus Unknown Completed [facility] of Vaccine Quad .5 mL [facility] IM 6+ MO Branch (FLUZONE/FLULAVAL/F LUARIX) SARS-COV-2 COVID-19 Unknown Completed Unive rsity of PFIZER VACCINE [facility] SARS-COV-2 COVID-19 Unknown Completed [facility]ive rs[facility] of PFIZER VACCINE [facility] Pneumococcal Unknown Completed [facility] o f Polysaccharide, [place] [facility] PPSV23 (PNEUMOVAX) Branch Influenza Virus Unknown Completed [facility] Vaccine,quad [facility],preserve Free [facility] 65+ (FLUAD) Hep B, Adol or Pedi Unknown Completed [facility] of Dosage [facility] Hep B, Adol or Pedi Unknown Completed [facility] of Dosage [facility] Influenza Virus Unknown Completed [facility] Vaccine [facility] Pneumococcal Unknown Completed [facility] Polysaccharide, [place] [facility] PPSV23 (PNEUMOVAX) Branch H1n1 Vaccine Unknown Completed [facility] o f [facility] Hep B, Adol or Pedi Unknown Completed [facility] Dosage [facility] Influenza Virus Unknown Completed [facility] Vaccine [facility] Influenza Virus Unknown Completed [facility] Vaccine [facility] Influenza Virus Unknown Completed [facility] Vaccine [facility] Influenza Virus Unknown Completed [facility] Vaccine [facility] Influenza Virus Unknown Completed [facility] of Vaccine (3+ yrs) [facility] dical Branch Influenza Virus Unknown Completed [facility] Vaccine Quad ID [place] [facility] 18-64 YRS Branch Influenza Virus Unknown Completed [facility] Vaccine Quad IM [place] [facility] Multi-dose 6+ MO Branch TDAP Unknown Completed [facility] Influenza Virus Unknown Completed [facility] of Vaccine Quad ID [place] [facility] 18-64 YRS Branch Influenza Virus Unknown Completed [facility] of Vaccine Quad IM 3+ [facility] Y[facility] Influenza Virus Unknown Completed [facility] of Vaccine Quad .5 mL [facility] IM 6+ MO Branch (FLUZONE/FLULAVAL/F LUARIX) Influenza Virus Unknown Completed [facility] of Vaccine Quad .5 mL [facility] IM 6+ MO Branch (FLUZONE/FLULAVAL/F LUARIX) Pneumococcal 13 Unknown Completed [facility]it [facility] of Conjugate, PCV13 [facility] dical (Prevnar 13) Branch Influenza Virus Unknown Completed [facility] of Vaccine Quad .5 mL [facility] IM 6+ MO Branch (FLUZONE/FLULAVAL/F LUARIX) SARS-COV-2 COVID-19 Unknown Completed [facility]ive rsity of PFIZER VACCINE [facility] SARS-COV-2 COVID-19 Unknown Completed [facility] of PFIZER VACCINE [facility] Pneumococcal Unknown Completed [facility] o [facility] Polysaccharide, [place] [facility] PPSV23 (PNEUMOVAX) Branch Influenza Virus Unknown Completed [facility] Vaccine,quad [place] [facility],preserve Free Branch 65+ (FLUAD) Hep B, Adol or Pedi Unknown Completed [facility]ive [facility]ity of Dosage [facility] Hep B, Adol or Pedi Unknown Completed [facility] of Dosage [facility] Influenza Virus Unknown Completed [facility]it [facility] of Vaccine [facility] Pneumococcal Unknown Completed [facility] o f Polysaccharide, [place] [facility] PPSV23 (PNEUMOVAX) Branch H1n1 Vaccine Unknown Completed [facility] o f [facility] Hep B, Adol or Pedi Unknown Completed [facility] of Dosage [facility] Influenza Virus Unknown Completed [facility]it [facility] of Vaccine [facility] Influenza Virus Unknown Completed [facility] of Vaccine [facility] Influenza Virus Unknown Completed [facility] of Vaccine [facility] Influenza Virus Unknown Completed [facility] of Vaccine [facility] Influenza Virus Unknown Completed [facility]it y of Vaccine (3+ yrs) [facility] dical Branch Influenza Virus Unknown Completed [facility] Vaccine Quad ID [place] [facility] 18-64 YRS Branch Influenza Virus Unknown Completed [facility] Vaccine Quad IM [place] [facility] Multi-dose 6+ MO Branch TDAP Unknown Completed [facility] Influenza Virus Unknown Completed [facility] Vaccine Quad ID [place] [facility] 18-64 YRS Branch Influenza Virus Unknown Completed [facility] of Vaccine Quad IM 3+ [facility] Influenza Virus Unknown Completed [facility] of Vaccine Quad .5 mL [facility] IM 6+ MO Branch (FLUZONE/FLULAVAL/F LUARIX) Influenza Virus Unknown Completed [facility] of Vaccine Quad .5 mL [facility] IM 6+ MO Branch (FLUZONE/FLULAVAL/F LUARIX) Pneumococcal 13 Unknown Completed [facility] Conjugate, PCV13 [place] [facility] (Prevnar 13) Branch Influenza Virus Unknown Completed [facility] of Vaccine Quad .5 mL [facility] IM 6+ MO Branch (FLUZONE/FLULAVAL/F LUARIX) SARS-COV-2 COVID-19 Unknown Completed [facility]ive [facility] of PFIZER VACCINE [facility] SARS-COV-2 COVID-19 Unknown Completed [facility] of PFIZER VACCINE [facility] Pneumococcal Unknown Completed [facility] o [facility] Polysaccharide, [place] [facility] PPSV23 (PNEUMOVAX) Branch Influenza Virus Unknown Completed [facility] Vaccine,quad [facility],preserve Free [facility] 65+ (FLUAD) Hep B, Adol or Pedi Unknown Completed [facility]ity of Dosage [facility] Hep B, Adol or Pedi Unknown Completed [facility] of Dosage [facility] Influenza Virus Unknown Completed [facility] Vaccine [facility] Pneumococcal Unknown Completed [facility] Polysaccharide, [place] [facility] PPSV23 (PNEUMOVAX) Branch H1n1 Vaccine Unknown Completed [facility] o [facility] Hep B, Adol or Pedi Unknown Completed [facility]ive [facility]ity of Dosage [facility] Influenza Virus Unknown Completed [facility] of Vaccine [facility] Influenza Virus Unknown Completed [facility] of Vaccine [facility] Influenza Virus Unknown Completed [facility] of Vaccine [facility] Influenza Virus Unknown Completed [facility] of Vaccine [facility] Influenza Virus Unknown Completed [facility] Vaccine (3+ yrs) [place] [facility] Influenza Virus Unknown Completed [facility] Vaccine Quad ID [place] [facility] 18-64 YRS Branch Influenza Virus Unknown Completed [facility] of Vaccine Quad IM [place] [facility] Multi-dose 6+ MO Branch TDAP Unknown Completed University of [facility] Influenza Virus Unknown Completed [facility] of Vaccine Quad ID [place] [facility] 18-64 YRS Branch Influenza Virus Unknown Completed [facility] of Vaccine Quad IM 3+ [facility] Y[facility] Influenza Virus Unknown Completed [facility] of Vaccine Quad .5 mL [facility] IM 6+ MO Branch (FLUZONE/FLULAVAL/F LUARIX) Influenza Virus Unknown Completed [facility] of Vaccine Quad .5 mL [facility] IM 6+ MO Branch (FLUZONE/FLULAVAL/F LUARIX) Pneumococcal 13 Unknown Completed [facility]it y of Conjugate, PCV13 [facility] dical (Prevnar 13) Branch Influenza Virus Unknown Completed [facility] y of Vaccine Quad .5 mL [facility] IM 6+ MO Branch (FLUZONE/FLULAVAL/F LUARIX) SARS-COV-2 COVID-19 Unknown Completed [facility]ive [facility]ity of PFIZER VACCINE [facility] SARS-COV-2 COVID-19 Unknown Completed [facility] of PFIZER VACCINE [facility] Pneumococcal Unknown Completed [facility] o [facility] Polysaccharide, [place] [facility] PPSV23 (PNEUMOVAX) Branch Influenza Virus Unknown Completed [facility] Vaccine,quad [facility],preserve Free [facility] 65+ (FLUAD) Hep B, Adol or Pedi Unknown Completed [facility]ive rsity of Dosage [facility] Hep B, Adol or Pedi Unknown Completed [facility] of Dosage [facility] Influenza Virus Unknown Completed [facility] Vaccine [facility] Pneumococcal Unknown Completed [facility] Polysaccharide, [place] [facility] PPSV23 (PNEUMOVAX) Branch H1n1 Vaccine Unknown Completed [facility] Hep B, Adol or Pedi Unknown Completed [facility]ive [facility] of Dosage [facility] Influenza Virus Unknown Completed [facility] of Vaccine [facility] Influenza Virus Unknown Completed [facility] Vaccine [facility] Influenza Virus Unknown Completed [facility] of Vaccine [facility] Influenza Virus Unknown Completed [facility] of Vaccine [facility] Influenza Virus Unknown Completed [facility]it y of Vaccine (3+ yrs) [facility] dical Branch Influenza Virus Unknown Completed [facility] Vaccine Quad ID [place] [facility] 18-64 YRS Branch Influenza Virus Unknown Completed [facility] of Vaccine Quad IM [place] [facility] Multi-dose 6+ MO Branch TDAP Unknown Completed University of [facility] Influenza Virus Unknown Completed [facility] of Vaccine Quad ID [place] [facility] 18-64 YRS Branch Influenza Virus Unknown Completed [facility] of Vaccine Quad IM 3+ [facility] Influenza Virus Unknown Completed [facility] of Vaccine Quad .5 mL [facility] IM 6+ MO Branch (FLUZONE/FLULAVAL/F LUARIX) Influenza Virus Unknown Completed [facility] of Vaccine Quad .5 mL [facility] IM 6+ MO Branch (FLUZONE/FLULAVAL/F LUARIX) Pneumococcal 13 Unknown Completed [facility]it y of Conjugate, PCV13 [facility] dical (Prevnar 13) Branch Influenza Virus Unknown Completed [facility]it y of Vaccine Quad .5 mL [facility] IM 6+ MO Branch (FLUZONE/FLULAVAL/F LUARIX) SARS-COV-2 COVID-19 Unknown Completed Unive rsity of PFIZER VACCINE [facility] SARS-COV-2 COVID-19 Unknown Completed Unive rsity of PFIZER VACCINE [facility] Pneumococcal Unknown Completed [facility] o f Polysaccharide, [place] [facility] PPSV23 (PNEUMOVAX) Branch Influenza Virus Unknown Completed [facility] Vaccine,quad [facility],preserve Free Branch 65+ (FLUAD) Hep B, Adol or Pedi Unknown Completed [facility]ive rsity of Dosage [facility] Hep B, Adol or Pedi Unknown Completed [facility] of Dosage [facility] Influenza Virus Unknown Completed [facility] of Vaccine [facility] Pneumococcal Unknown Completed [facility] o f Polysaccharide, [place] [facility] PPSV23 (PNEUMOVAX) Branch H1n1 Vaccine Unknown Completed [facility] o [facility] Hep B, Adol or Pedi Unknown Completed [facility]ive [facility]ity of Dosage [facility] Influenza Virus Unknown Completed [facility] of Vaccine [facility] Influenza Virus Unknown Completed [facility] of Vaccine [facility] Influenza Virus Unknown Completed [facility] of Vaccine [facility] Influenza Virus Unknown Completed [facility] y of Vaccine [facility] Influenza Virus Unknown Completed [facility]it y of Vaccine (3+ yrs) [facility] dical Branch Influenza Virus Unknown Completed [facility] of Vaccine Quad ID [place] [facility] 18-64 YRS Branch Influenza Virus Unknown Completed [facility] Vaccine Quad IM [facility] Multi-dose 6+ MO Branch TDAP Unknown Completed [facility] Influenza Virus Unknown Completed [facility] y of Vaccine Quad ID [facility] ical 18-64 YRS Branch Influenza Virus Unknown Completed [facility] y of Vaccine Quad IM 3+ [facility] Influenza Virus Unknown Completed [facility] of Vaccine Quad .5 mL [facility] IM 6+ MO Branch (FLUZONE/FLULAVAL/F LUARIX) Influenza Virus Unknown Completed [facility] y of Vaccine Quad .5 mL [facility] IM 6+ MO Branch (FLUZONE/FLULAVAL/F LUARIX) Pneumococcal 13 Unknown Completed [facility]it y of Conjugate, PCV13 [facility] dical (Prevnar 13) Branch Influenza Virus Unknown Completed [facility] y of Vaccine Quad .5 mL [facility] IM 6+ MO Branch (FLUZONE/FLULAVAL/F LUARIX) SARS-COV-2 COVID-19 Unknown Completed Unive rsity of PFIZER VACCINE [facility] SARS-COV-2 COVID-19 Unknown Completed Unive rsity of PFIZER VACCINE [facility] Pneumococcal Unknown Completed University o f Polysaccharide, [place] [facility] PPSV23 (PNEUMOVAX) Branch Influenza Virus Unknown Completed [facility] Vaccine,quad [facility],preserve Free [facility] 65+ (FLUAD) Hep B, Adol or Pedi Unknown Completed [facility]ive rsity of Dosage [facility] Hep B, Adol or Pedi Unknown Completed [facility] of Dosage [facility] Influenza Virus Unknown Completed [facility] of Vaccine [facility] Pneumococcal Unknown Completed [facility] o f Polysaccharide, [place] [facility] PPSV23 (PNEUMOVAX) Branch H1n1 Vaccine Unknown Completed [facility] o [facility] Hep B, Adol or Pedi Unknown Completed [facility]ity of Dosage [facility] Influenza Virus Unknown Completed [facility] of Vaccine [facility] Influenza Virus Unknown Completed [facility] of Vaccine [facility] Influenza Virus Unknown Completed [facility] of Vaccine [facility] Influenza Virus Unknown Completed [facility] of Vaccine [facility] Influenza Virus Unknown Completed [facility]it y of Vaccine (3+ yrs) [facility] dical Branch Influenza Virus Unknown Completed [facility]it y of Vaccine Quad ID [facility] ical 18-64 YRS Branch Influenza Virus Unknown Completed [facility]it y of Vaccine Quad IM [facility] ical Multi-dose 6+ MO Branch TDAP Unknown Completed [facility] Influenza Virus Unknown Completed [facility] y of Vaccine Quad ID [facility] ical 18-64 YRS Branch Influenza Virus Unknown Completed [facility] y of Vaccine Quad IM 3+ [facility] Influenza Virus Unknown Completed [facility] of Vaccine Quad .5 mL [facility] IM 6+ MO Branch (FLUZONE/FLULAVAL/F LUARIX) Influenza Virus Unknown Completed [facility] y of Vaccine Quad .5 mL [facility] IM 6+ MO Branch (FLUZONE/FLULAVAL/F LUARIX) Pneumococcal 13 Unknown Completed [facility]it y of Conjugate, PCV13 [facility] dical (Prevnar 13) Branch Influenza Virus Unknown Completed [facility] y of Vaccine Quad .5 mL [facility] IM 6+ MO Branch (FLUZONE/FLULAVAL/F LUARIX) SARS-COV-2 COVID-19 Unknown Completed Unive rsity of PFIZER VACCINE [facility] SARS-COV-2 COVID-19 Unknown Completed Unive rsity of PFIZER VACCINE [facility] Pneumococcal Unknown Completed University o f Polysaccharide, [facility] ica PPSV23 (PNEUMOVAX) Branch Hep B, Adol or Pedi Unknown Completed [facility]ive rsity of Dosage [facility] Hep B, Adol or Pedi Unknown Completed [facility]ive [facility]ity of Dosage [facility] Influenza Virus Unknown Completed [facility] y of Vaccine [facility] Pneumococcal Unknown Completed [facility] o f Polysaccharide, [facility] ica PPSV23 (PNEUMOVAX) Branch H1n1 Vaccine Unknown Completed [facility] o [facility] Hep B, Adol or Pedi Unknown Completed [facility]ity of Dosage [facility] Influenza Virus Unknown Completed [facility] y of Vaccine [facility] Influenza Virus Unknown Completed [facility] of Vaccine [facility] Influenza Virus Unknown Completed [facility] of Vaccine [facility] Influenza Virus Unknown Completed [facility] y of Vaccine [facility] Influenza Virus Unknown Completed [facility]it y of Vaccine (3+ yrs) [facility] dical Branch Influenza Virus Unknown Completed [facility] y of Vaccine Quad ID [facility] ica 18-64 YRS Branch Influenza Virus Unknown Completed [facility]it y of Vaccine Quad IM [facility] Multi-dose 6+ MO Branch TDAP Unknown Completed [facility] Influenza Virus Unknown Completed [facility]it y of Vaccine Quad ID [facility] 18-64 YRS Branch Influenza Virus Unknown Completed [facility]it y of Vaccine Quad IM 3+ [facility] YRS Branch Influenza Virus Unknown Completed [facility] y of Vaccine Quad .5 mL [facility] IM 6+ MO Branch (FLUZONE/FLULAVAL/F LUARIX) Influenza Virus Unknown Completed [facility] y of Vaccine Quad .5 mL [facility] IM 6+ MO Branch (FLUZONE/FLULAVAL/F LUARIX) Pneumococcal 13 Unknown Completed [facility]it y of Conjugate, PCV13 [facility] dical (Prevnar 13) Branch Influenza Virus Unknown Completed [facility]it y of Vaccine Quad .5 mL [facility] IM 6+ MO Branch (FLUZONE/FLULAVAL/F LUARIX) SARS-COV-2 COVID-19 Unknown Completed Unive rsity of PFIZER VACCINE [facility] SARS-COV-2 COVID-19 Unknown Completed Unive rsity of PFIZER VACCINE [facility] Pneumococcal Unknown Completed University o f Polysaccharide, [place] [facility] PPSV23 (PNEUMOVAX) Branch Hep B, Adol or Pedi Unknown Completed [facility]ive rsity of Dosage [facility] Hep B, Adol or Pedi Unknown Completed [facility]ity of Dosage [facility] Influenza Virus Unknown Completed [facility] y of Vaccine [facility] Pneumococcal Unknown Completed [facility] o f Polysaccharide, [place] [facility] PPSV23 (PNEUMOVAX) Branch H1n1 Vaccine Unknown Completed [facility] Hep B, Adol or Pedi Unknown Completed [facility] of Dosage [facility] Influenza Virus Unknown Completed [facility] y of Vaccine [facility] Influenza Virus Unknown Completed [facility] y of Vaccine [facility] Influenza Virus Unknown Completed [facility] of Vaccine [facility] Influenza Virus Unknown Completed [facility] of Vaccine [facility] Influenza Virus Unknown Completed [facility]it y of Vaccine (3+ yrs) [facility] dical Branch Influenza Virus Unknown Completed [facility] y of Vaccine Quad ID [facility] ical 18-64 YRS Branch Influenza Virus Unknown Completed [facility]it y of Vaccine Quad IM [facility] Multi-dose 6+ MO Branch TDAP Unknown Completed [facility] Influenza Virus Unknown Completed [facility] y of Vaccine Quad IM 3+ [facility] Influenza Virus Unknown Completed [facility] y of Vaccine Quad .5 mL [facility] IM 6+ MO Branch (FLUZONE/FLULAVAL/F LUARIX) Influenza Virus Unknown Completed [facility] y of Vaccine Quad .5 mL [facility] IM 6+ MO Branch (FLUZONE/FLULAVAL/F LUARIX) Pneumococcal 13 Unknown Completed [facility]it y of Conjugate, PCV13 [facility] dical (Prevnar 13) Branch Influenza Virus Unknown Completed [facility]it y of Vaccine Quad .5 mL [facility] IM 6+ MO Branch (FLUZONE/FLULAVAL/F LUARIX) SARS-COV-2 COVID-19 Unknown Completed Unive rsity of PFIZER VACCINE [facility] SARS-COV-2 COVID-19 Unknown Completed Unive rsity of PFIZER VACCINE [facility] Pneumococcal Unknown Completed University o f Polysaccharide, [facility] ical PPSV23 (PNEUMOVAX) Branch Hep B, Adol or Pedi Unknown Completed [facility]ive rsity of Dosage [facility] Hep B, Adol or Pedi Unknown Completed [facility] of Dosage [facility] Influenza Virus Unknown Completed [facility] Vaccine [facility] Pneumococcal Unknown Completed [facility] o [facility] Polysaccharide, [facility] PPSV23 (PNEUMOVAX) Branch H1n1 Vaccine Unknown Completed [facility] Hep B, Adol or Pedi Unknown Completed [facility] Dosage [facility] Influenza Virus Unknown Completed [facility] Vaccine [facility] Influenza Virus Unknown Completed [facility] Vaccine [facility] Influenza Virus Unknown Completed [facility] Vaccine [facility] Influenza Virus Unknown Completed [facility] Vaccine [facility] Influenza Virus Unknown Completed [facility] y of Vaccine (3+ yrs) [facility] dical Branch Influenza Virus Unknown Completed [facility] y of Vaccine Quad ID [facility] ical 18-64 YRS Branch Influenza Virus Unknown Completed [facility] y of Vaccine Quad IM [facility] ical Multi-dose 6+ MO Branch TDAP Unknown Completed [facility] Influenza Virus Unknown Completed [facility] y of Vaccine Quad IM 3+ [facility] Influenza Virus Unknown Completed [facility] y of Vaccine Quad .5 mL [facility] IM 6+ MO Branch (FLUZONE/FLULAVAL/F LUARIX) Influenza Virus Unknown Completed [facility] y of Vaccine Quad .5 mL [facility] IM 6+ MO Branch (FLUZONE/FLULAVAL/F LUARIX) Pneumococcal 13 Unknown Completed [facility]it y of Conjugate, PCV13 [facility] dicnh (Prevnar 13) Branch Influenza Virus Unknown Completed [facility] y of Vaccine Quad .5 mL [facility] IM 6+ MO Branch (FLUZONE/FLULAVAL/F LUARIX) SARS-COV-2 COVID-19 Unknown Completed Unive rsity of PFIZER VACCINE [facility] SARS-COV-2 COVID-19 Unknown Completed Unive rsity of PFIZER VACCINE [facility] Hep B, Adol or Pedi Unknown Completed Unive rsity of Dosage [facility] Hep B, Adol or Pedi Unknown Completed [facility] of Dosage [facility] Influenza Virus Unknown Completed [facility] Vaccine [facility] Pneumococcal Unknown Completed [facility] o f Polysaccharide, [facility] PPSV23 (PNEUMOVAX) Branch H1n1 Vaccine Unknown Completed [facility] Hep B, Adol or Pedi Unknown Completed [facility]ity of Dosage [facility] Influenza Virus Unknown Completed [facility] Vaccine [facility] Influenza Virus Unknown Completed [facility] Vaccine [facility] Influenza Virus Unknown Completed [facility] Vaccine [facility] Influenza Virus Unknown Completed [facility] Vaccine [facility] Influenza Virus Unknown Completed [facility] Vaccine (3+ yrs) [facility] dical Branch Influenza Virus Unknown Completed [facility] of Vaccine Quad ID [facility] ical 18-64 YRS Branch Influenza Virus Unknown Completed [facility] Vaccine Quad IM [facility] Multi-dose 6+ MO Branch TDAP Unknown Completed [facility] Influenza Virus Unknown Completed [facility] Vaccine Quad IM 3+ [facility] Influenza Virus Unknown Completed [facility] of Vaccine Quad .5 mL [facility] IM 6+ MO Branch (FLUZONE/FLULAVAL/F LUARIX) Influenza Virus Unknown Completed [facility] Vaccine Quad .5 mL [facility] IM 6+ MO Branch (FLUZONE/FLULAVAL/F LUARIX) Pneumococcal 13 Unknown Completed [facility]it y of Conjugate, PCV13 [facility] (Prevnar 13) Branch Influenza Virus Unknown Completed [facility]it y of Vaccine Quad .5 mL [facility] IM 6+ MO Branch (FLUZONE/FLULAVAL/F LUARIX) SARS-COV-2 COVID-19 Unknown Completed Unive rsity of PFIZER VACCINE [facility] Branch SARS-COV-2 COVID-19 Unknown Completed Unive rsity of PFIZER VACCINE [facility] Hep B, Adol or Pedi Unknown Completed Unive rsity of Dosage [facility] Hep B, Adol or Pedi Unknown Completed Unive rsity of Dosage [facility] Influenza Virus Unknown Completed [facility]it y of Vaccine [facility] Branch Pneumococcal Unknown Completed University o f Polysaccharide, [facility] ica PPSV23 (PNEUMOVAX) Branch H1n1 Vaccine Unknown Completed University o f [facility] Hep B, Adol or Pedi Unknown Completed Unive rsity of Dosage [facility] Influenza Virus Unknown Completed [facility] Vaccine [facility] Influenza Virus Unknown Completed [facility] of Vaccine [facility] Branch Influenza Virus Unknown Completed [facility] of Vaccine [facility] Branch Influenza Virus Unknown Completed [facility] of Vaccine [facility] Branch Influenza Virus Unknown Completed [facility]it y of Vaccine (3+ yrs) [facility] dical Branch Influenza Virus Unknown Completed [facility] y of Vaccine Quad ID [facility] ical 18-64 YRS Branch Influenza Virus Unknown Completed [facility] Vaccine Quad IM [facility] Multi-dose 6+ MO Branch TDAP Unknown Completed [facility] Influenza Virus Unknown Completed [facility] of Vaccine Quad IM 3+ [facility] Influenza Virus Unknown Completed [facility] Vaccine Quad .5 mL [facility] IM 6+ MO Branch (FLUZONE/FLULAVAL/F LUARIX) Influenza Virus Unknown Completed [facility] of Vaccine Quad .5 mL [facility] IM 6+ MO Branch (FLUZONE/FLULAVAL/F LUARIX) Pneumococcal 13 Unknown Completed [facility]it y of Conjugate, PCV13 [facility] dical (Prevnar 13) Branch Influenza Virus Unknown Completed [facility]it y of Vaccine Quad .5 mL [facility] IM 6+ MO Branch (FLUZONE/FLULAVAL/F LUARIX) SARS-COV-2 COVID-19 Unknown Completed Unive rsity of PFIZER VACCINE [facility] SARS-COV-2 COVID-19 Unknown Completed Unive rsity of PFIZER VACCINE [facility] Hep B, Adol or Pedi Unknown Completed Unive rsity of Dosage [facility] Hep B, Adol or Pedi Unknown Completed Unive rsity of Dosage [facility] Influenza Virus Unknown Completed [facility] Vaccine [facility] Pneumococcal Unknown Completed [place] [facility], [facility] ical PPSV23 (PNEUMOVAX) Branch H1n1 Vaccine Unknown Completed University o f [facility] Hep B, Adol or Pedi Unknown Completed Unive rsity of Dosage [facility] Influenza Virus Unknown Completed [facility] of Vaccine [facility] Influenza Virus Unknown Completed [facility] Vaccine [facility] Influenza Virus Unknown Completed [facility] Vaccine [facility] Influenza Virus Unknown Completed [facility] of Vaccine [facility] Influenza Virus Unknown Completed [facility]it y of Vaccine (3+ yrs) [facility] dical Branch Influenza Virus Unknown Completed [facility] y of Vaccine Quad ID [facility] ical 18-64 YRS Branch Influenza Virus Unknown Completed [facility] y of Vaccine Quad IM [facility] ical Multi-dose 6+ MO Branch TDAP Unknown Completed [facility] Influenza Virus Unknown Completed [facility] of Vaccine Quad IM 3+ [facility] Influenza Virus Unknown Completed [facility] of Vaccine Quad .5 mL [facility] IM 6+ MO Branch (FLUZONE/FLULAVAL/F LUARIX) Influenza Virus Unknown Completed [facility] of Vaccine Quad .5 mL [facility] IM 6+ MO Branch (FLUZONE/FLULAVAL/F LUARIX) Pneumococcal 13 Unknown Completed [facility]it y of Conjugate, PCV13 [facility] dical (Prevnar 13) Branch Influenza Virus Unknown Completed [facility]it y of Vaccine Quad .5 mL [facility] IM 6+ MO Branch (FLUZONE/FLULAVAL/F LUARIX) SARS-COV-2 COVID-19 Unknown Completed Unive rsity of PFIZER VACCINE [facility] Branch SARS-COV-2 COVID-19 Unknown Completed Unive rsity of PFIZER VACCINE [facility] Branch Hep B, Adol or Pedi Unknown Completed Unive rsity of Dosage [facility] Hep B, Adol or Pedi Unknown Completed Unive rsity of Dosage [facility] Branch Influenza Virus Unknown Completed [facility] Vaccine [facility] Pneumococcal Unknown Completed [facility] o f Polysaccharide, [facility] ical PPSV23 (PNEUMOVAX) Branch H1n1 Vaccine Unknown Completed [facility] o f [facility] Branch Hep B, Adol or Pedi Unknown Completed Unive rsity of Dosage [facility] Branch Influenza Virus Unknown Completed [facility] of Vaccine [facility] Influenza Virus Unknown Completed [facility] of Vaccine [facility] Influenza Virus Unknown Completed [facility] Vaccine [facility] Influenza Virus Unknown Completed [facility] of Vaccine [facility] Influenza Virus Unknown Completed [facility]it y of Vaccine (3+ yrs) [facility] dical Branch Influenza Virus Unknown Completed [facility] y of Vaccine Quad ID [facility] ical 18-64 YRS Branch Influenza Virus Unknown Completed [facility]it y of Vaccine Quad IM [facility] Multi-dose 6+ MO Branch TDAP Unknown Completed [facility] Influenza Virus Unknown Completed [facility] of Vaccine Quad IM 3+ [facility] Influenza Virus Unknown Completed [facility] of Vaccine Quad .5 mL [facility] IM 6+ MO Branch (FLUZONE/FLULAVAL/F LUARIX) Influenza Virus Unknown Completed [facility] of Vaccine Quad .5 mL [facility] IM 6+ MO Branch (FLUZONE/FLULAVAL/F LUARIX) Pneumococcal 13 Unknown Completed [facility]it y of Conjugate, PCV13 [facility] dicnh (Prevnar 13) Branch Influenza Virus Unknown Completed [facility]it y of Vaccine Quad .5 mL [facility] IM 6+ MO Branch (FLUZONE/FLULAVAL/F LUARIX) SARS-COV-2 COVID-19 Unknown Completed Unive rsity of PFIZER VACCINE [facility] Branch SARS-COV-2 COVID-19 Unknown Completed Unive rsity of PFIZER VACCINE [facility] Branch Hep B, Adol or Pedi Unknown Completed Unive rsity of Dosage [facility] Hep B, Adol or Pedi Unknown Completed [facility]ive rsity of Dosage [facility] Influenza Virus Unknown Completed [facility] Vaccine [facility] Pneumococcal Unknown Completed [facility] o f Polysaccharide, [place] [facility] PPSV23 (PNEUMOVAX) Branch H1n1 Vaccine Unknown Completed [facility] Hep B, Adol or Pedi Unknown Completed Unive rsity of Dosage [facility] Influenza Virus Unknown Completed [facility] Vaccine [facility] Influenza Virus Unknown Completed [facility] Vaccine [facility] Influenza Virus Unknown Completed [facility] Vaccine [facility] Influenza Virus Unknown Completed [facility] Vaccine [facility] Influenza Virus Unknown Completed [facility] of Vaccine (3+ yrs) [facility] dical Branch Influenza Virus Unknown Completed [facility] Vaccine Quad ID [facility] 18-64 YRS Branch Influenza Virus Unknown Completed [facility]it y of Vaccine Quad IM [facility] ical Multi-dose 6+ MO Branch TDAP Unknown Completed [facility] Influenza Virus Unknown Completed [facility] of Vaccine Quad IM 3+ [facility] Influenza Virus Unknown Completed [facility] of Vaccine Quad .5 mL [facility] IM 6+ MO Branch (FLUZONE/FLULAVAL/F LUARIX) Influenza Virus Unknown Completed [facility] of Vaccine Quad .5 mL [facility] IM 6+ MO Branch (FLUZONE/FLULAVAL/F LUARIX) Pneumococcal 13 Unknown Completed [facility]it y of Conjugate, PCV13 [facility] (Prevnar 13) Branch Influenza Virus Unknown Completed [facility]it [facility] of Vaccine Quad .5 mL [facility] IM 6+ MO Branch (FLUZONE/FLULAVAL/F LUARIX) Hep B, Adol or Pedi Unknown Completed Unive rsity of Dosage [facility] Hep B, Adol or Pedi Unknown Completed Unive rsity of Dosage [facility] Influenza Virus Unknown Completed [facility] Vaccine [facility] Pneumococcal Unknown Completed [facility] o [facility] Polysaccharide, [place] [facility] PPSV23 (PNEUMOVAX) Branch H1n1 Vaccine Unknown Completed [facility] Hep B, Adol or Pedi Unknown Completed Unive rsity of Dosage [facility] Influenza Virus Unknown Completed [facility] Vaccine [facility] Influenza Virus Unknown Completed [facility] Vaccine [facility] Influenza Virus Unknown Completed [facility] Vaccine [facility] Influenza Virus Unknown Completed [facility] Vaccine [facility] Influenza Virus Unknown Completed [facility] y of Vaccine (3+ yrs) [facility] dical Branch Influenza Virus Unknown Completed [facility] Vaccine Quad ID [facility] 18-64 YRS Branch Influenza Virus Unknown Completed [facility]it y of Vaccine Quad IM [facility] Multi-dose 6+ MO Branch TDAP Unknown Completed [facility] Influenza Virus Unknown Completed [facility]it y of Vaccine Quad IM 3+ [facility] YRS Branch Influenza Virus Unknown Completed [facility]it y of Vaccine Quad .5 mL [facility] IM 6+ MO Branch (FLUZONE/FLULAVAL/F LUARIX) Influenza Virus Unknown Completed [facility]it [facility] of Vaccine Quad .5 mL [facility] IM 6+ MO Branch (FLUZONE/FLULAVAL/F LUARIX) Hep B, Adol or Pedi Unknown Completed Unive rsity of Dosage [facility] Hep B, Adol or Pedi Unknown Completed Unive rsity of Dosage [facility] Influenza Virus Unknown Completed [facility]it y of Vaccine [facility] Pneumococcal Unknown Completed University o f Polysaccharide, [facility] PPSV23 (PNEUMOVAX) Branch H1n1 Vaccine Unknown Completed [facility] Hep B, Adol or Pedi Unknown Completed Unive rsity of Dosage [facility] Influenza Virus Unknown Completed [facility]it y of Vaccine [facility] Influenza Virus Unknown Completed [facility] y of Vaccine [facility] Influenza Virus Unknown Completed [facility] y of Vaccine [facility] Influenza Virus Unknown Completed [facility] y of Vaccine [facility] Influenza Virus Unknown Completed [facility]it y of Vaccine (3+ yrs) [facility] dical Branch Influenza Virus Unknown Completed [facility]it y of Vaccine Quad ID [facility] 18-64 YRS Branch Influenza Virus Unknown Completed [facility]it y of Vaccine Quad IM [facility] Multi-dose 6+ MO Branch TDAP Unknown Completed [facility] Influenza Virus Unknown Completed [facility]it y of Vaccine Quad IM 3+ [facility] YRS Branch Influenza Virus Unknown Completed [facility]it y of Vaccine Quad .5 mL [facility] 6+ MO Branch (FLUZONE/FLULAVAL/F LUARIX) Influenza Virus Unknown Completed [facility]it y of Vaccine Quad .5 mL [facility] 6+ MO Branch (FLUZONE/FLULAVAL/F LUARIX) Hep B, Adol or Pedi Unknown Completed Unive rsity of Dosage [facility] Hep B, Adol or Pedi Unknown Completed Unive rsity of Dosage [facility] Influenza Virus Unknown Completed [facility]it y of Vaccine [facility] Pneumococcal Unknown Completed University o f Polysaccharide, [facility] PPSV23 (PNEUMOVAX) Branch H1n1 Vaccine Unknown Completed [facility] Hep B, Adol or Pedi Unknown Completed Unive rsity of Dosage [facility] Influenza Virus Unknown Completed [facility] Vaccine [facility] Influenza Virus Unknown Completed [facility] Vaccine [facility] Influenza Virus Unknown Completed [facility] Vaccine [facility] Influenza Virus Unknown Completed [facility] Vaccine [facility] Influenza Virus Unknown Completed [facility] Vaccine (3+ yrs) [place] [facility] Influenza Virus Unknown Completed [facility] Vaccine Quad ID [facility] 18-64 YRS Branch Influenza Virus Unknown Completed [facility] Vaccine Quad IM [facility] Multi-dose 6+ MO Branch TDAP Unknown Completed [facility] Influenza Virus Unknown Completed [facility] Vaccine Quad ID [facility] 18-64 YRS Branch Influenza Virus Unknown Completed [facility] y of Vaccine Quad IM 3+ [facility] Influenza Virus Unknown Completed [facility] of Vaccine Quad .5 mL [facility] IM 6+ MO Branch (FLUZONE/FLULAVAL/F LUARIX) Influenza Virus Unknown Completed [facility] y of Vaccine Quad .5 mL [facility] IM 6+ MO Branch (FLUZONE/FLULAVAL/F LUARIX) Pneumococcal 13 Unknown Completed [facility]it y of Conjugate, PCV13 [facility] dical (Prevnar 13) Branch Influenza Virus Unknown Completed [facility] y of Vaccine Quad .5 mL [facility] IM 6+ MO Branch (FLUZONE/FLULAVAL/F LUARIX) SARS-COV-2 COVID-19 Unknown Completed Unive rsity of PFIZER VACCINE [facility] SARS-COV-2 COVID-19 Unknown Completed Unive rsity of PFIZER VACCINE [facility] Branch Pneumococcal Unknown Completed University o f Polysaccharide, [place] [facility] PPSV23 (PNEUMOVAX) Branch Influenza Virus Unknown Completed [facility] Vaccine,quad [facility] Im,preserve Free Branch 65+ (FLUAD) Hep B, Adol or Pedi Unknown Completed Unive rsity of Dosage [facility] Hep B, Adol or Pedi Unknown Completed Unive rsity of Dosage [facility] Influenza Virus Unknown Completed [facility]it y of Vaccine [facility] Branch Pneumococcal Unknown Completed [facility] o f Polysaccharide, [place] [facility] PPSV23 (PNEUMOVAX) Branch H1n1 Vaccine Unknown Completed [facility] Hep B, Adol or Pedi Unknown Completed Unive rsity of Dosage [facility] Influenza Virus Unknown Completed [facility] Vaccine [facility] Influenza Virus Unknown Completed [facility] Vaccine [facility] Influenza Virus Unknown Completed [facility] Vaccine [facility] Influenza Virus Unknown Completed [facility] Vaccine [facility] Influenza Virus Unknown Completed [facility] Vaccine (3+ yrs) [place] [facility] Influenza Virus Unknown Completed [facility] Vaccine Quad ID [facility] 18-64 YRS Branch Influenza Virus Unknown Completed [facility] Vaccine Quad IM [place] [facility] Multi-dose 6+ MO Branch TDAP Unknown Completed [facility] Branch Influenza Virus Unknown Completed [facility] of Vaccine Quad ID [facility] 18-64 YRS Branch Influenza Virus Unknown Completed [facility] Vaccine Quad IM 3+ [facility] Influenza Virus Unknown Completed [facility] of Vaccine Quad .5 mL [facility] IM 6+ MO Branch (FLUZONE/FLULAVAL/F LUARIX) Influenza Virus Unknown Completed [facility] y of Vaccine Quad .5 mL [facility] IM 6+ MO Branch (FLUZONE/FLULAVAL/F LUARIX) Pneumococcal 13 Unknown Completed [facility]it y of Conjugate, PCV13 [facility] dical (Prevnar 13) Branch Influenza Virus Unknown Completed [facility]it y of Vaccine Quad .5 mL [facility] IM 6+ MO Branch (FLUZONE/FLULAVAL/F LUARIX) SARS-COV-2 COVID-19 Unknown Completed Unive rsity of PFIZER VACCINE [facility] Branch SARS-COV-2 COVID-19 Unknown Completed Unive rsity of PFIZER VACCINE [facility] Branch Pneumococcal Unknown Completed University o f Polysaccharide, [place] [facility] PPSV23 (PNEUMOVAX) Branch Influenza Virus Unknown Completed [facility] Vaccine,quad [place] [facility] Im,preserve Free Branch 65+ (FLUAD) Hep B, Adol or Pedi Unknown Completed Unive rsity of Dosage [facility] Hep B, Adol or Pedi Unknown Completed Unive rsity of Dosage [facility] Branch Influenza Virus Unknown Completed [facility]it y of Vaccine [facility] Branch Pneumococcal Unknown Completed [facility] o f Polysaccharide, [place] [facility] PPSV23 (PNEUMOVAX) Branch H1n1 Vaccine Unknown Completed [facility] Hep B, Adol or Pedi Unknown Completed Unive rsity of Dosage [facility] Influenza Virus Unknown Completed [facility] y of Vaccine [facility] Influenza Virus Unknown Completed [facility] Vaccine [facility] Influenza Virus Unknown Completed [facility] Vaccine [facility] Influenza Virus Unknown Completed [facility] Vaccine [facility] Influenza Virus Unknown Completed [facility] Vaccine (3+ yrs) [place] [facility] Influenza Virus Unknown Completed [facility] Vaccine Quad ID [facility] 18-64 YRS Branch Influenza Virus Unknown Completed [facility] of Vaccine Quad IM [facility] Multi-dose 6+ MO Branch TDAP Unknown Completed [facility] Influenza Virus Unknown Completed [facility] Vaccine Quad ID [place] [facility] 18-64 YRS Branch Influenza Virus Unknown Completed [facility] of Vaccine Quad IM 3+ [facility] Influenza Virus Unknown Completed [facility] of Vaccine Quad .5 mL [facility] IM 6+ MO Branch (FLUZONE/FLULAVAL/F LUARIX) Influenza Virus Unknown Completed [facility] of Vaccine Quad .5 mL [facility] IM 6+ MO Branch (FLUZONE/FLULAVAL/F LUARIX) Pneumococcal 13 Unknown Completed [facility] Conjugate, PCV13 [place] [facility] (Prevnar 13) Branch Influenza Virus Unknown Completed [facility] y of Vaccine Quad .5 mL [facility] IM 6+ MO Branch (FLUZONE/FLULAVAL/F LUARIX) SARS-COV-2 COVID-19 Unknown Completed Unive rsity of PFIZER VACCINE [facility] Branch SARS-COV-2 COVID-19 Unknown Completed Unive rsity of PFIZER VACCINE [facility] Branch Pneumococcal Unknown Completed University o f Polysaccharide, [place] [facility] PPSV23 (PNEUMOVAX) Branch Influenza Virus Unknown Completed [facility] Vaccine,quad [place] [facility] Im,preserve Free Branch 65+ (FLUAD) Influenza Virus Unknown Completed [facility] Vaccine,quad [facility] Im,preserve Free Branch 65+ (FLUAD) Hep B, Adol or Pedi Unknown Completed Unive rsity of Dosage [facility] Hep B, Adol or Pedi Unknown Completed Unive rsity of Dosage [facility] Influenza Virus Unknown Completed [facility] Vaccine [facility] Pneumococcal Unknown Completed [facility] o f Polysaccharide, [place] [facility] PPSV23 (PNEUMOVAX) Branch H1n1 Vaccine Unknown Completed [facility] Hep B, Adol or Pedi Unknown Completed Unive rsity of Dosage [facility] Influenza Virus Unknown Completed [facility] Vaccine [facility] Influenza Virus Unknown Completed [facility] Vaccine [facility] Influenza Virus Unknown Completed [facility] Vaccine [facility] Influenza Virus Unknown Completed [facility] Vaccine [facility] Influenza Virus Unknown Completed [facility] Vaccine (3+ yrs) [place] [facility] Influenza Virus Unknown Completed [facility] Vaccine Quad ID [facility] 18-64 YRS Branch Influenza Virus Unknown Completed [facility] of Vaccine Quad IM [place] [facility] Multi-dose 6+ MO Branch TDAP Unknown Completed [facility] Influenza Virus Unknown Completed [facility] of Vaccine Quad ID [place] [facility] 18-64 YRS Branch Influenza Virus Unknown Completed [facility] of Vaccine Quad IM 3+ [facility] Influenza Virus Unknown Completed [facility] of Vaccine Quad .5 mL [facility] IM 6+ MO Branch (FLUZONE/FLULAVAL/F LUARIX) Influenza Virus Unknown Completed [facility] of Vaccine Quad .5 mL [facility] IM 6+ MO Branch (FLUZONE/FLULAVAL/F LUARIX) Pneumococcal 13 Unknown Completed [facility] Conjugate, PCV13 [place] [facility] (Prevnar 13) Branch Influenza Virus Unknown Completed [facility] y of Vaccine Quad .5 mL [facility] IM 6+ MO Branch (FLUZONE/FLULAVAL/F LUARIX) SARS-COV-2 COVID-19 Unknown Completed Unive rsity of PFIZER VACCINE [facility] Branch SARS-COV-2 COVID-19 Unknown Completed Unive rsity of PFIZER VACCINE [facility] Branch Pneumococcal Unknown Completed University o f Polysaccharide, [place] [facility] PPSV23 (PNEUMOVAX) Branch Influenza Virus Unknown Completed [facility] Vaccine,quad [place] [facility] Im,preserve Free Branch 65+ (FLUAD) Influenza Virus Unknown Completed [facility] Vaccine,quad [place] [facility] Im,preserve Free Branch 65+ (FLUAD) Hep B, Adol or Pedi Unknown Completed Unive rsity of Dosage [facility] Hep B, Adol or Pedi Unknown Completed Unive rsity of Dosage [facility] Influenza Virus Unknown Completed [facility] Vaccine [facility] Pneumococcal Unknown Completed [facility] o f Polysaccharide, [place] [facility] PPSV23 (PNEUMOVAX) Branch H1n1 Vaccine Unknown Completed [facility] Hep B, Adol or Pedi Unknown Completed Unive rsity of Dosage [facility] Influenza Virus Unknown Completed [facility] Vaccine [facility] Influenza Virus Unknown Completed [facility] Vaccine [facility] Influenza Virus Unknown Completed [facility] Vaccine [facility] Influenza Virus Unknown Completed [facility] Vaccine [facility] Influenza Virus Unknown Completed [facility] Vaccine (3+ yrs) [place] [facility] Influenza Virus Unknown Completed [facility] Vaccine Quad ID [facility] 18-64 YRS Branch Influenza Virus Unknown Completed [facility] Vaccine Quad IM [place] [facility] Multi-dose 6+ MO Branch TDAP Unknown Completed [facility] Influenza Virus Unknown Completed [facility] Vaccine Quad ID [place] [facility] 18-64 YRS Branch Influenza Virus Unknown Completed [facility] y of Vaccine Quad IM 3+ [facility] Influenza Virus Unknown Completed [facility] of Vaccine Quad .5 mL [facility] IM 6+ MO Branch (FLUZONE/FLULAVAL/F LUARIX) Influenza Virus Unknown Completed [facility] y of Vaccine Quad .5 mL [facility] IM 6+ MO Branch (FLUZONE/FLULAVAL/F LUARIX) Pneumococcal 13 Unknown Completed [facility]it y of Conjugate, PCV13 [facility] dical (Prevnar 13) Branch Influenza Virus Unknown Completed [facility]it y of Vaccine Quad .5 mL [facility] IM 6+ MO Branch (FLUZONE/FLULAVAL/F LUARIX) SARS-COV-2 COVID-19 Unknown Completed Unive rsity of PFIZER VACCINE [facility] SARS-COV-2 COVID-19 Unknown Completed Unive [facility]ity of PFIZER VACCINE [facility] Pneumococcal Unknown Completed [facility] o f Polysaccharide, [place] [facility] PPSV23 (PNEUMOVAX) Branch Influenza Virus Unknown Completed [facility] Vaccine,quad [place] [facility] 65+ (FLUAD) Influenza Virus Unknown Completed [facility] Vaccine,quad [place] [facility] 65+ (FLUAD) Hep B, Adol or Pedi Unknown Completed [facility]ive [facility]ity of Dosage [facility] Hep B, Adol or Pedi Unknown Completed [facility] Dosage [facility] Influenza Virus Unknown Completed [facility] Vaccine [facility] Pneumococcal Unknown Completed [facility] Polysaccharide, [place] [facility] PPSV23 (PNEUMOVAX) Branch H1n1 Vaccine Unknown Completed [facility] Hep B, Adol or Pedi Unknown Completed [facility] Dosage [facility] Influenza Virus Unknown Completed [facility] Vaccine [facility] Influenza Virus Unknown Completed [facility] Vaccine [facility] Influenza Virus Unknown Completed [facility] Vaccine [facility] Influenza Virus Unknown Completed [facility] Vaccine [facility] Influenza Virus Unknown Completed [facility] Vacc[facility] (3+ yrs[facility] [place] [facility] Influenza Virus Unknown Completed [facility] Vaccine Quad ID [place] [facility] 18-64 YRS [facility] Influenza Virus Unknown Completed [facility] Vaccine Quad IM [place] [facility] Multi-dose 6+ MO Branch TDAP Unknown Completed [facility] Influenza Virus Unknown Completed [facility] Vaccine Quad ID [place] [facility] 18-64 YRS [facility] Influenza Virus Unknown Completed [facility] Vaccine Quad IM 3+ [facility] Influenza Virus Unknown Completed [facility] Vaccine Quad .5 mL [facility] IM 6+ MO Branch (FLUZONE/FLULAVAL/F LUARIX) Influenza Virus Unknown Completed [facility] Vaccine Quad .5 mL [facility] 6+ MO Branch (FLUZONE/FLULAVAL/F LUARIX) Pneumococcal 13 Unknown Completed [facility]it y of Conjugate, PCV13 [facility] dicnh (Prevnar 13) Branch Influenza Virus Unknown Completed [facility] Vaccine Quad .5 mL [facility] IM 6+ MO Branch (FLUZONE/FLULAVAL/F LUARIX) SARS-COV-2 COVID-19 Unknown Completed [facility]ive rs[facility] of PFIZER VACCINE [facility] SARS-COV-2 COVID-19 Unknown Completed [facility] PFIZER VACCINE [facility] Pneumococcal Unknown Completed [facility] Polysaccharide, [place] [facility] PPSV23 (PNEUMOVAX) Branch Influenza Virus Unknown Completed [facility] Vaccine,quad [place] [facility] 65+ (FLUAD) Influenza Virus Unknown Completed [facility] Vaccine,quad [place] [facility] 65+ (FLUAD) Hep B, Adol or Pedi Unknown Completed [facility]ive [facility]ity of Dosage [facility] Hep B, Adol or Pedi Unknown Completed [facility] Dosage [facility] Influenza Virus Unknown Completed [facility] Vaccine [facility] Pneumococcal Unknown Completed [facility] Polysaccharide, [place] [facility] PPSV23 (PNEUMOVAX) Branch H1n1 Vaccine Unknown Completed [facility] Hep B, Adol or Pedi Unknown Completed [facility] Dosage [facility] Influenza Virus Unknown Completed [facility] Vaccine [facility] Influenza Virus Unknown Completed [facility] Vaccine [facility] Influenza Virus Unknown Completed [facility] Vaccine [facility] Influenza Virus Unknown Completed [facility] Vaccine [facility] Influenza Virus Unknown Completed [facility] Vaccine (3+ yrs) [place] [facility] Influenza Virus Unknown Completed [facility] Vaccine Quad ID [place] [facility] 18-64 YRS [facility] Influenza Virus Unknown Completed [facility] Vaccine Quad IM [place] [facility] Multi-dose 6+ MO Branch TDAP Unknown Completed [facility] Influenza Virus Unknown Completed [facility] Vaccine Quad ID [place] [facility] 18-64 YRS [facility] Influenza Virus Unknown Completed [facility] Vaccine Quad IM 3+ [place] [facility] Influenza Virus Unknown Completed [facility] Vaccine Quad .5 mL [facility] IM 6+ MO Branch (FLUZONE/FLULAVAL/F LUARIX) Influenza Virus Unknown Completed [facility] Vaccine Quad .5 mL [facility] IM 6+ MO Branch (FLUZONE/FLULAVAL/F LUARIX) Pneumococcal 13 Unknown Completed [facility]it y of Conjugate, PCV13 [facility] dical (Prevnar 13) Branch Influenza Virus Unknown Completed [facility] of Vaccine Quad .5 mL [facility] IM 6+ MO Branch (FLUZONE/FLULAVAL/F LUARIX) SARS-COV-2 COVID-19 Unknown Completed [facility]ive rsity [facility] PFIZER VACCINE [facility] SARS-COV-2 COVID-19 Unknown Completed [facility] PFIZER VACCINE [facility] Pneumococcal Unknown Completed [facility] o [facility] Polysaccharide, [place] [facility] PPSV23 (PNEUMOVAX) Branch Influenza Virus Unknown Completed [facility] Vaccine,quad [place] [facility] 65+ (FLUAD) Influenza Virus Unknown Completed [facility] Vaccine,quad [place] [facility] 65+ (FLUAD) Hep B, Adol or Pedi Unknown Completed [facility]ive [facility]ity of Dosage [facility] Hep B, Adol or Pedi Unknown Completed [facility] Dosage [facility] Influenza Virus Unknown Completed [facility] Vaccine [facility] Pneumococcal Unknown Completed [facility] Polysaccharide, [place] [facility] PPSV23 (PNEUMOVAX) Branch H1n1 Vaccine Unknown Completed [facility] Hep B, Adol or Pedi Unknown Completed [facility] Dosage [facility] Influenza Virus Unknown Completed [facility] Vaccine [facility] Influenza Virus Unknown Completed [facility] Vaccine [facility] Influenza Virus Unknown Completed [facility] Vaccine [facility] Influenza Virus Unknown Completed [facility] Vaccine [facility] Influenza Virus Unknown Completed [facility] Vacc[facility] (3+ yrs[facility] [place] [facility] Influenza Virus Unknown Completed [facility] Vaccine Quad ID [place] [facility] 18-64 YRS Branch Influenza Virus Unknown Completed [facility] Vaccine Quad IM [place] [facility] Multi-dose 6+ MO Branch TDAP Unknown Completed [facility] Influenza Virus Unknown Completed [facility] Vaccine Quad ID [place] [facility] 18-64 YRS [facility] Influenza Virus Unknown Completed [facility] Vaccine Quad IM 3+ [place] [facility] Influenza Virus Unknown Completed [facility] Vaccine Quad .5 mL [facility] IM 6+ MO Branch (FLUZONE/FLULAVAL/F LUARIX) Influenza Virus Unknown Completed [facility] Vaccine Quad .5 mL [facility] IM 6+ MO Branch (FLUZONE/FLULAVAL/F LUARIX) Pneumococcal 13 Unknown Completed [facility]it [facility] of Conjugate, PCV13 [facility] dical (Prevnar 13) Branch Influenza Virus Unknown Completed [facility] of Vaccine Quad .5 mL [facility] IM 6+ MO Branch (FLUZONE/FLULAVAL/F LUARIX) SARS-COV-2 COVID-19 Unknown Completed [facility]ive rsity of PFIZER VACCINE [facility] SARS-COV-2 COVID-19 Unknown Completed [facility]ive rsity of PFIZER VACCINE [facility] Pneumococcal Unknown Completed [facility] o [facility] Polysaccharide, [place] [facility] PPSV23 (PNEUMOVAX) Branch Influenza Virus Unknown Completed [facility] Vaccine,quad [place] [facility] 65+ (FLUAD) Influenza Virus Unknown Completed [facility] Vaccine,quad [facility] 65+ (FLUAD) Hep B, Adol or Pedi Unknown Completed [facility]ive [facility]ity of Dosage [facility] Hep B, Adol or Pedi Unknown Completed Unive rsity of Dosage [facility] Influenza Virus Unknown Completed [facility] Vaccine [facility] Pneumococcal Unknown Completed [facility] Polysaccharide, [place] [facility] PPSV23 (PNEUMOVAX) Branch H1n1 Vaccine Unknown Completed [facility] Hep B, Adol or Pedi Unknown Completed [facility] Dosage [facility] Influenza Virus Unknown Completed [facility] Vaccine [facility] Influenza Virus Unknown Completed [facility] Vaccine [facility] Influenza Virus Unknown Completed [facility] Vaccine [facility] Influenza Virus Unknown Completed [facility] Vaccine [facility] Influenza Virus Unknown Completed [facility] y of Vaccine (3+ yrs) [facility] dical Branch Influenza Virus Unknown Completed [facility] Vaccine Quad ID [place] [facility] 18-64 YRS Branch Influenza Virus Unknown Completed [facility] y of Vaccine Quad IM [place] [facility] ical Multi-dose 6+ MO Branch TDAP Unknown Completed [facility] Influenza Virus Unknown Completed [facility] Vaccine Quad ID [place] [facility] 18-64 YRS Branch Influenza Virus Unknown Completed [facility] Vaccine Quad IM 3+ [place] [facility] Influenza Virus Unknown Completed [facility] Vaccine Quad .5 mL [facility] IM 6+ MO Branch (FLUZONE/FLULAVAL/F LUARIX) Influenza Virus Unknown Completed [facility] of Vaccine Quad .5 mL [facility] IM 6+ MO Branch (FLUZONE/FLULAVAL/F LUARIX) Pneumococcal 13 Unknown Completed [facility]it y of Conjugate, PCV13 [facility] dical (Prevnar 13) Branch Influenza Virus Unknown Completed [facility]it y of Vaccine Quad .5 mL [facility] IM 6+ MO Branch (FLUZONE/FLULAVAL/F LUARIX) SARS-COV-2 COVID-19 Unknown Completed [facility] P[facility]ER [facility]ACCINE [place] [facility] SARS-COV-2 COVID-19 Unknown Completed Unive rsity of PFIZER VACCINE [facility] Pneumococcal Unknown Completed [facility] o [facility] Polysaccharide, [place] [facility] PPSV23 (PNEUMOVAX) Branch Influenza Virus Unknown Completed [facility] Vaccine,quad [place] [facility] 65+ (FLUAD) Influenza Virus Unknown Completed [facility] Vaccine,quad [place] [facility] 65+ (FLUAD) Hep B, Adol or Pedi Unknown Completed [facility]ive rsity of Dosage [facility] Hep B, Adol or Pedi Unknown Completed [facility]ive [facility]ity of Dosage [facility] Influenza Virus Unknown Completed [facility] Vaccine [facility] Pneumococcal Unknown Completed [facility] o [facility] Polysaccharide, [place] [facility] PPSV23 (PNEUMOVAX) Branch H1n1 Vaccine Unknown Completed [facility] Hep B, Adol or Pedi Unknown Completed [facility]ive [facility]ity of Dosage [facility] Influenza Virus Unknown Completed [facility] Vaccine [facility] Influenza Virus Unknown Completed [facility] Vaccine [facility] Influenza Virus Unknown Completed [facility] Vaccine [facility] Influenza Virus Unknown Completed [facility] Vaccine [facility] Influenza Virus Unknown Completed [facility]it y of Vaccine (3+ yrs) [facility] dical Branch Influenza Virus Unknown Completed [facility] y of Vaccine Quad ID [place] [facility] 18-64 YRS Branch Influenza Virus Unknown Completed [facility] Vaccine Quad IM [place] [facility] Multi-dose 6+ MO Branch TDAP Unknown Completed [facility] Influenza Virus Unknown Completed [facility] of Vaccine Quad ID [place] [facility] 18-64 YRS Branch Influenza Virus Unknown Completed [facility] y of Vaccine Quad IM 3+ [place] [facility] Influenza Virus Unknown Completed [facility] y of Vaccine Quad .5 mL [facility] IM 6+ MO Branch (FLUZONE/FLULAVAL/F LUARIX) Influenza Virus Unknown Completed [facility] y of Vaccine Quad .5 mL [facility] IM 6+ MO Branch (FLUZONE/FLULAVAL/F LUARIX) Pneumococcal 13 Unknown Completed [facility]it y of Conjugate, PCV13 [facility] dicnh (Prevnar 13) Branch Influenza Virus Unknown Completed [facility] y of Vaccine Quad .5 mL [facility] IM 6+ MO Branch (FLUZONE/FLULAVAL/F LUARIX) SARS-COV-2 COVID-19 Unknown Completed Unive rsity of PFIZER VACCINE [facility] SARS-COV-2 COVID-19 Unknown Completed Unive rsity of PFIZER VACCINE [facility] Pneumococcal Unknown Completed [facility] o [facility] Polysaccharide, [place] [facility] PPSV23 (PNEUMOVAX) Branch Influenza Virus Unknown Completed [facility] Vaccine,quad [place] [facility] 65+ (FLUAD) Influenza Virus Unknown Completed [facility] Vaccine,quad [place] [facility] 65+ (FLUAD) Hep B, Adol or Pedi Unknown Completed [facility]ive rsity of Dosage [facility] Hep B, Adol or Pedi Unknown Completed [facility]ive [facility]ity of Dosage [facility] Influenza Virus Unknown Completed [facility] Vaccine [facility] Pneumococcal Unknown Completed [facility] o f Polysaccharide, [place] [facility] PPSV23 (PNEUMOVAX) Branch H1n1 Vaccine Unknown Completed [facility] Hep B, Adol or Pedi Unknown Completed [facility]ive [facility]ity of Dosage [facility] Influenza Virus Unknown Completed [facility] Vaccine [facility] Influenza Virus Unknown Completed [facility] Vaccine [facility] Influenza Virus Unknown Completed [facility] Vaccine [facility] Influenza Virus Unknown Completed [facility] Vaccine [facility] Influenza Virus Unknown Completed [facility]it y of Vaccine (3+ yrs) [facility] dical Branch Influenza Virus Unknown Completed [facility] y of Vaccine Quad ID [place] [facility] 18-64 YRS Branch Influenza Virus Unknown Completed [facility] y of Vaccine Quad IM [place] [facility] Multi-dose 6+ MO Branch TDAP Unknown Completed [facility] Influenza Virus Unknown Completed [facility] y of Vaccine Quad ID [place] [facility] 18-64 YRS Branch Influenza Virus Unknown Completed [facility] y of Vaccine Quad IM 3+ [place] [facility] Influenza Virus Unknown Completed [facility] y of Vaccine Quad .5 mL [facility] IM 6+ MO Branch (FLUZONE/FLULAVAL/F LUARIX) Influenza Virus Unknown Completed [facility] y of Vaccine Quad .5 mL [facility] IM 6+ MO Branch (FLUZONE/FLULAVAL/F LUARIX) Pneumococcal 13 Unknown Completed [facility]it y of Conjugate, PCV13 [facility] dicnh (Prevnar 13) Branch Influenza Virus Unknown Completed [facility] y of Vaccine Quad .5 mL [facility] IM 6+ MO Branch (FLUZONE/FLULAVAL/F LUARIX) SARS-COV-2 COVID-19 Unknown Completed Unive rsity of PFIZER VACCINE [facility] SARS-COV-2 COVID-19 Unknown Completed Unive rsity of PFIZER VACCINE [facility] Pneumococcal Unknown Completed [facility] o f Polysaccharide, [place] [facility] PPSV23 (PNEUMOVAX) Branch Influenza Virus Unknown Completed [facility] Vaccine,quad [place] [facility] 65+ (FLUAD) Influenza Virus Unknown Completed [facility] Vaccine,quad [place] [facility] 65+ (FLUAD) Hep B, Adol or Pedi Unknown Completed Unive rsity of Dosage [facility] Hep B, Adol or Pedi Unknown Completed Unive rsity of Dosage [facility] Influenza Virus Unknown Completed [facility] Vaccine [facility] Pneumococcal Unknown Completed [facility] o f Polysaccharide, [place] [facility] PPSV23 (PNEUMOVAX) Branch H1n1 Vaccine Unknown Completed [facility] Hep B, Adol or Pedi Unknown Completed [facility]ive rsity of Dosage [facility] Influenza Virus Unknown Completed [facility] Vaccine [facility] Influenza Virus Unknown Completed [facility] Vaccine [facility] Influenza Virus Unknown Completed [facility] Vaccine [facility] Influenza Virus Unknown Completed [facility] Vaccine [facility] Influenza Virus Unknown Completed [facility]it y of Vaccine (3+ yrs) [facility] dical Branch Influenza Virus Unknown Completed [facility] y of Vaccine Quad ID [place] [facility] 18-64 YRS Branch Influenza Virus Unknown Completed [facility] y [facility] Vaccine Quad IM [place] [facility] Multi-dose 6+ MO Branch TDAP Unknown Completed [facility] Influenza Virus Unknown Completed [facility] Vaccine Quad ID [place] [facility] 18-64 YRS Branch Influenza Virus Unknown Completed [facility] y of Vaccine Quad IM 3+ [facility] Influenza Virus Unknown Completed [facility] of Vaccine Quad .5 mL [place] [facility] IM 6+ MO Branch (FLUZONE/FLULAVAL/F LUARIX) Influenza Virus Unknown Completed [facility] y of Vaccine Quad .5 mL [facility] IM 6+ MO Branch (FLUZONE/FLULAVAL/F LUARIX) Pneumococcal 13 Unknown Completed [facility]it y of Conjugate, PCV13 [facility] dical (Prevnar 13) Branch Influenza Virus Unknown Completed [facility] y of Vaccine Quad .5 mL [facility] IM 6+ MO Branch (FLUZONE/FLULAVAL/F LUARIX) SARS-COV-2 COVID-19 Unknown Completed Unive rsity of PFIZER VACCINE [facility] SARS-COV-2 COVID-19 Unknown Completed [facility]ive rsity of PFIZER VACCINE [facility] Pneumococcal Unknown Completed [facility] o f Polysaccharide, [place] [facility] PPSV23 (PNEUMOVAX) Branch Influenza Virus Unknown Completed [facility] Vaccine,quad [place] [facility] 65+ (FLUAD) Influenza Virus Unknown Completed [facility] Vaccine,quad [place] [facility] 65+ (FLUAD) Hep B, Adol or Pedi Unknown Completed [facility]ive rsity of Dosage [facility] Hep B, Adol or Pedi Unknown Completed [facility]ive rsity of Dosage [facility] Influenza Virus Unknown Completed [facility] Vaccine [facility] Pneumococcal Unknown Completed [facility] o f Polysaccharide, [facility] ical PPSV23 (PNEUMOVAX) Branch H1n1 Vaccine Unknown Completed [facility] Hep B, Adol or Pedi Unknown Completed [facility]ive rsity of Dosage [facility] Influenza Virus Unknown Completed [facility] Vaccine [facility] Influenza Virus Unknown Completed [facility] Vaccine [facility] Influenza Virus Unknown Completed [facility] Vaccine [facility] Influenza Virus Unknown Completed [facility] Vaccine [facility] Influenza Virus Unknown Completed [facility]it y of Vaccine (3+ yrs) [facility] dical Branch Influenza Virus Unknown Completed [facility] y of Vaccine Quad ID [facility] ical 18-64 YRS Branch Influenza Virus Unknown Completed [facility] y of Vaccine Quad IM [place] [facility] Multi-dose 6+ MO Branch TDAP Unknown Completed [facility] Influenza Virus Unknown Completed [facility] y of Vaccine Quad ID [place] [facility] 18-64 YRS Branch Influenza Virus Unknown Completed [facility] y of Vaccine Quad IM 3+ [place] [facility] Influenza Virus Unknown Completed [facility] of Vaccine Quad .5 mL [facility] IM 6+ MO Branch (FLUZONE/FLULAVAL/F LUARIX) Influenza Virus Unknown Completed [facility] of Vaccine Quad .5 mL [facility] IM 6+ MO Branch (FLUZONE/FLULAVAL/F LUARIX) Pneumococcal 13 Unknown Completed [facility] Conjugate, PCV13 [place] [facility] (Prevnar 13) Branch Influenza Virus Unknown Completed [facility] y of Vaccine Quad .5 mL [facility] IM 6+ MO Branch (FLUZONE/FLULAVAL/F LUARIX) SARS-COV-2 COVID-19 Unknown Completed Unive rsity of PFIZER VACCINE [facility] SARS-COV-2 COVID-19 Unknown Completed [facility]ive rsity of PFIZER VACCINE [facility] Pneumococcal Unknown Completed [facility] o f Polysaccharide, [place] [facility] PPSV23 (PNEUMOVAX) Branch Influenza Virus Unknown Completed [facility] Vaccine,quad [place] [facility] 65+ (FLUAD) Influenza Virus Unknown Completed [facility] Vaccine,quad [place] [facility] 65+ (FLUAD) Hep B, Adol or Pedi Unknown Completed [facility]ive rsity of Dosage [facility] Hep B, Adol or Pedi Unknown Completed [facility]ive rsity of Dosage [facility] Influenza Virus Unknown Completed [facility] Vaccine [facility] Pneumococcal Unknown Completed [facility] o f Polysaccharide, [facility] ical PPSV23 (PNEUMOVAX) Branch H1n1 Vaccine Unknown Completed [facility] Hep B, Adol or Pedi Unknown Completed [facility]ive [facility]ity of Dosage [facility] Influenza Virus Unknown Completed [facility] Vaccine [facility] Influenza Virus Unknown Completed [facility] Vaccine [facility] Influenza Virus Unknown Completed [facility] Vaccine [facility] Influenza Virus Unknown Completed [facility] Vaccine [facility] Influenza Virus Unknown Completed [facility]it y of Vaccine (3+ yrs) [facility] dical Branch Influenza Virus Unknown Completed [facility] y of Vaccine Quad ID [facility] ical 18-64 YRS Branch Influenza Virus Unknown Completed [facility] y of Vaccine Quad IM [facility] ical Multi-dose 6+ MO Branch TDAP Unknown Completed [facility] Influenza Virus Unknown Completed [facility] Vaccine Quad ID [place] [facility] 18-64 YRS Branch Influenza Virus Unknown Completed [facility] y of Vaccine Quad IM 3+ [place] [facility] Influenza Virus Unknown Completed [facility] of Vaccine Quad .5 mL [facility] IM 6+ MO Branch (FLUZONE/FLULAVAL/F LUARIX) Influenza Virus Unknown Completed [facility] y of Vaccine Quad .5 mL [facility] IM 6+ MO Branch (FLUZONE/FLULAVAL/F LUARIX) Pneumococcal 13 Unknown Completed [facility] Conjugate, PCV13 [place] [facility] (Prevnar 13) Branch Influenza Virus Unknown Completed [facility] y of Vaccine Quad .5 mL [facility] IM 6+ MO Branch (FLUZONE/FLULAVAL/F LUARIX) SARS-COV-2 COVID-19 Unknown Completed [facility]ive rsity of PFIZER VACCINE [facility] SARS-COV-2 COVID-19 Unknown Completed [facility]ive rsity of PFIZER VACCINE [facility] Pneumococcal Unknown Completed [facility] o f Polysaccharide, [facility] ical PPSV23 (PNEUMOVAX) Branch Influenza Virus Unknown Completed [facility] Vaccine,quad [place] [facility] 65+ (FLUAD) Influenza Virus Unknown Completed [facility] Vaccine,quad [place] [facility] 65+ (FLUAD) Hep B, Adol or Pedi Unknown Completed [facility]ive rsity of Dosage [facility] Hep B, Adol or Pedi Unknown Completed [facility]ity of Dosage [facility] Influenza Virus Unknown Completed [facility] Vaccine [facility] Pneumococcal Unknown Completed [facility] o f Polysaccharide, [facility] ical PPSV23 (PNEUMOVAX) Branch H1n1 Vaccine Unknown Completed [facility] Hep B, Adol or Pedi Unknown Completed [facility]ive rsity of Dosage [facility] Influenza Virus Unknown Completed [facility] Vaccine [facility] Influenza Virus Unknown Completed [facility] Vaccine [facility] Influenza Virus Unknown Completed [facility] Vaccine [facility] Influenza Virus Unknown Completed [facility] Vaccine [facility] Influenza Virus Unknown Completed [facility] y of Vaccine (3+ yrs) [facility] dical Branch Influenza Virus Unknown Completed [facility] y of Vaccine Quad ID [facility] ical 18-64 YRS Branch Influenza Virus Unknown Completed [facility] y of Vaccine Quad IM [facility] ical Multi-dose 6+ MO Branch TDAP Unknown Completed [facility] Influenza Virus Unknown Completed [facility] Vaccine Quad ID [place] [facility] 18-64 YRS Branch Influenza Virus Unknown Completed [facility] y of Vaccine Quad IM 3+ [place] [facility] YRS Branch Influenza Virus Unknown Completed [facility] Vaccine Quad .5 mL [facility] 6+ MO Branch (FLUZONE/FLULAVAL/F LUARIX) Influenza Virus Unknown Completed [facility] Vaccine Quad .5 mL [facility] 6+ MO [facility] (FLUZONE/FLULAVAL/F LUARIX) Pneumococcal 13 Unknown Completed [facility] Conjugate, PCV13 [place] [facility] (Prevnar 13) Branch Influenza Virus Unknown Completed [facility] Vaccine Quad .5 mL [facility] 6+ MO Branch (FLUZONE/FLULAVAL/F LUARIX) SARS-COV-2 COVID-19 Unknown Completed [facility] PFIZER VACCINE [facility] SARS-COV-2 COVID-19 Unknown Completed [facility] Pneumococcal Unknown Completed [facility] f Polysaccharide, [facility] PPSV23 (PNEUMOVAX) Branch Influenza Virus Unknown Completed [facility] Vaccine,[facility] 65+ (FLUAD) Influenza Virus Unknown Completed [facility] Vaccine,quad [facility] 65+ (FLUAD) Hep B, Adol or Pedi Unknown Completed [facility] Dosage [facility] Hep B, Adol or Pedi Unknown Completed [facility] Dosage [facility] Influenza Virus Unknown Completed [facility] Vaccine [facility] Pneumococcal Unknown Completed [facility] o [facility] Polysaccharide, [facility] ical PPSV23 (PNEUMOVAX) Branch H1n1 Vaccine Unknown Completed [facility] Hep B, Adol or Pedi Unknown Completed [facility] Dosage [facility] Influenza Virus Unknown Completed [facility] Vaccine [facility] Influenza Virus Unknown Completed [facility] Vaccine [facility] Influenza Virus Unknown Completed [facility] Vaccine [facility] Influenza Virus Unknown Completed [facility] Vaccine [facility] Influenza Virus Unknown Completed [facility] (3+ yrs[facility] Influenza Virus Unknown Completed [facility] Vaccine Quad ID [facility] ical 18-64 YRS Branch Influenza Virus Unknown Completed [facility] Vaccine Quad IM [facility] ical Multi-dose 6+ MO Branch TDAP Unknown Completed [facility] Influenza Virus Unknown Completed [facility] Vaccine Quad ID [facility] ical 18-64 YRS Branch Influenza Virus Unknown Completed [facility] Vaccine Quad IM 3+ [facility] Influenza Virus Unknown Completed [facility] Vaccine Quad .5 mL [facility] IM 6+ MO Branch (FLUZONE/FLULAVAL/F LUARIX) Influenza Virus Unknown Completed [facility] Vaccine Quad .5 mL [facility] IM 6+ MO Branch (FLUZONE/FLULAVAL/F LUARIX) Pneumococcal 13 Unknown Completed [facility] Conjugate, PCV13 [place] [facility] (Prevnar 13) Branch Influenza Virus Unknown Completed [facility] Vaccine Quad .5 mL [facility] IM 6+ MO Branch (FLUZONE/FLULAVAL/F LUARIX) SARS-COV-2 COVID-19 Unknown Completed [facility] of PFIZER VACCINE [facility] Branch SARS-COV-2 COVID-19 Unknown Completed [facility] PFIZER VACCINE [facility] Branch Pneumococcal Unknown Completed [facility] o f Polysaccharide, [facility] ical PPSV23 (PNEUMOVAX) Branch Influenza Virus Unknown Completed [facility] Vaccine,quad [facility] 65+ (FLUAD) Influenza Virus Unknown Completed [facility] Vaccine,quad [facility] 65+ (FLUAD) Hep B, Adol or Pedi Unknown Completed [facility] Dosage [facility] Hep B, Adol or Pedi Unknown Completed [facility] Dosage [facility] Influenza Virus Unknown Completed [facility] Vaccine [facility] Pneumococcal Unknown Completed [facility] f Polysaccharide, [facility] ical PPSV23 (PNEUMOVAX) Branch H1n1 Vaccine Unknown Completed [facility] Hep B, Adol or Pedi Unknown Completed [facility] Dosage [facility] Influenza Virus Unknown Completed [facility] Vaccine [facility] Influenza Virus Unknown Completed [facility] Vaccine [facility] Influenza Virus Unknown Completed [facility] Vaccine [facility] Influenza Virus Unknown Completed [facility] Vaccine [facility] Influenza Virus Unknown Completed [facility] Vaccine (3+ yrs) [facility] dical Branch Influenza Virus Unknown Completed [facility] Vaccine Quad ID [facility] ical 18-64 YRS Branch Influenza Virus Unknown Completed [facility] Vaccine Quad IM [facility] ical Multi-dose 6+ MO Branch TDAP Unknown Completed [facility] Influenza Virus Unknown Completed [facility] Vaccine Quad ID [facility] 18-64 YRS Branch Influenza Virus Unknown Completed [facility] Vaccine Quad IM 3+ [facility] Y[facility] Influenza Virus Unknown Completed [facility] Vaccine Quad .5 mL [facility] IM 6+ MO Branch (FLUZONE/FLULAVAL/F LUARIX) Influenza Virus Unknown Completed [facility] Vaccine Quad .5 mL [facility] IM 6+ MO Branch (FLUZONE/FLULAVAL/F LUARIX) Pneumococcal 13 Unknown Completed [facility] Conjugate, PCV13 [place] [facility] (Prevnar 13) Branch Influenza Virus Unknown Completed [facility] Vaccine Quad .5 mL [facility] IM 6+ MO Branch (FLUZONE/FLULAVAL/F LUARIX) SARS-COV-2 COVID-19 Unknown Completed [facility] of PFIZER VACCINE [facility] Branch SARS-COV-2 COVID-19 Unknown Completed [facility] PFIZER VACCINE [facility] Branch Pneumococcal Unknown Completed [facility] Polysaccharide, [place] [facility] PPSV23 (PNEUMOVAX) Branch Influenza Virus Unknown Completed [facility] Vaccine,quad [facility] 65+ (FLUAD) Influenza Virus Unknown Completed [facility] Vaccine,quad [facility] 65+ (FLUAD) Hep B, Adol or Pedi Unknown Completed [facility] Dosage [facility] Hep B, Adol or Pedi Unknown Completed [facility] Dosage [facility] Influenza Virus Unknown Completed [facility] Vaccine [facility] Pneumococcal Unknown Completed [facility] Polysaccharide, [facility] ical PPSV23 (PNEUMOVAX) Branch H1n1 Vaccine Unknown Completed [facility] Hep B, Adol or Pedi Unknown Completed [facility] Dosage [facility] Influenza Virus Unknown Completed [facility] Vaccine [facility] Influenza Virus Unknown Completed [facility] Vaccine [facility] Influenza Virus Unknown Completed [facility] Vaccine [facility] Influenza Virus Unknown Completed [facility] Vaccine [facility] Influenza Virus Unknown Completed [facility] Vacc[facility] (3+ yrs[facility] [place] [facility] Influenza Virus Unknown Completed [facility] Vaccine Quad ID [place] [facility] 18-64 YRS Branch Influenza Virus Unknown Completed [facility] Vaccine Quad IM [facility] Multi-dose 6+ MO Branch TDAP Unknown Completed [facility] Branch Influenza Virus Unknown Completed [facility] Vaccine Quad ID [place] [facility] 18-64 YRS Branch Influenza Virus Unknown Completed [facility] Vaccine Quad IM 3+ [facility] Y[facility] Branch Influenza Virus Unknown Completed [facility] Vaccine Quad .5 mL [facility] IM 6+ MO Branch (FLUZONE/FLULAVAL/F LUARIX) Influenza Virus Unknown Completed [facility] Vaccine Quad .5 mL [facility] IM 6+ MO Branch (FLUZONE/FLULAVAL/F LUARIX) Pneumococcal 13 Unknown Completed [facility] Conjugate, PCV13 [place] [facility] (Prevnar 13) Branch Influenza Virus Unknown Completed [facility] Vaccine Quad .5 mL [facility] IM 6+ MO Branch (FLUZONE/FLULAVAL/F LUARIX) SARS-COV-2 COVID-19 Unknown Completed [facility] PFIZER VACCINE [facility] Branch SARS-COV-2 COVID-19 Unknown Completed [facility] PFIZER VACCINE [facility] Branch Pneumococcal Unknown Completed [facility] Polysaccharide, [facility] PPSV23 (PNEUMOVAX) Branch Influenza Virus Unknown Completed [facility] Vaccine,quad [facility] 65+ (FLUAD) Influenza Virus Unknown Completed [facility] Vaccine,quad [facility] 65+ (FLUAD) Hep B, Adol or Pedi Unknown Completed [facility]ity of Dosage [facility] Branch Hep B, Adol or Pedi Unknown Completed [facility] Dosage [facility] Influenza Virus Unknown Completed [facility] Vaccine [facility] Pneumococcal Unknown Completed [facility] o f Polysaccharide, [facility] ical PPSV23 (PNEUMOVAX) Branch H1n1 Vaccine Unknown Completed [facility] Hep B, Adol or Pedi Unknown Completed [facility] Dosage [facility] Influenza Virus Unknown Completed [facility] Vaccine [facility] Influenza Virus Unknown Completed [facility] Vaccine [facility] Influenza Virus Unknown Completed [facility] Vaccine [facility] Influenza Virus Unknown Completed [facility] Vaccine [facility] Influenza Virus Unknown Completed [facility] Vaccine (3+ yrs) [place] [facility] Influenza Virus Unknown Completed [facility] Vaccine Quad ID [facility] 18-64 YRS Branch Influenza Virus Unknown Completed [facility] Vaccine Quad IM [facility] ical Multi-dose 6+ MO Branch TDAP Unknown Completed [facility] Influenza Virus Unknown Completed [facility] Vaccine Quad ID [facility] 18-64 YRS Branch Influenza Virus Unknown Completed [facility] Vaccine Quad IM 3+ [facility] Branch Influenza Virus Unknown Completed [facility] Vaccine Quad .5 mL [facility] IM 6+ MO Branch (FLUZONE/FLULAVAL/F LUARIX) Influenza Virus Unknown Completed [facility] Vaccine Quad .5 mL [facility] IM 6+ MO Branch (FLUZONE/FLULAVAL/F LUARIX) Pneumococcal 13 Unknown Completed [facility] Conjugate, PCV13 [place] [facility] (Prevnar 13) Branch Influenza Virus Unknown Completed [facility] Vaccine Quad .5 mL [facility] IM 6+ MO Branch (FLUZONE/FLULAVAL/F LUARIX) SARS-COV-2 COVID-19 Unknown Completed [facility] of PFIZER VACCINE [facility] Branch SARS-COV-2 COVID-19 Unknown Completed [facility] PFIZER VACCINE [facility] Branch Pneumococcal Unknown Completed [facility] o f Polysaccharide, [facility] ical PPSV23 (PNEUMOVAX) Branch Influenza Virus Unknown Completed [facility] Vaccine,quad [facility] Branch 65+ (FLUAD) Influenza Virus Unknown Completed [facility] Vaccine,quad [facility] Branch 65+ (FLUAD) Hep B, Adol or Pedi Unknown Completed [facility]ive rsity of Dosage [facility] Hep B, Adol or Pedi Unknown Completed [facility] of Dosage [facility] Influenza Virus Unknown Completed [facility] Vaccine [facility] Pneumococcal Unknown Completed [facility] o f Polysaccharide, [facility] ical PPSV23 (PNEUMOVAX) Branch H1n1 Vaccine Unknown Completed [facility] Hep B, Adol or Pedi Unknown Completed [facility] Dosage [facility] Influenza Virus Unknown Completed [facility] Vaccine [facility] Influenza Virus Unknown Completed [facility] Vaccine [facility] Influenza Virus Unknown Completed [facility] Vaccine [facility] Influenza Virus Unknown Completed [facility] Vaccine [facility] Influenza Virus Unknown Completed [facility] Vaccine (3+ yrs) [facility] dical Branch Influenza Virus Unknown Completed [facility] Vaccine Quad ID [facility] 18-64 YRS Branch Influenza Virus Unknown Completed [facility] Vaccine Quad IM [facility] Multi-dose 6+ MO Branch TDAP Unknown Completed [facility] Influenza Virus Unknown Completed [facility] Vaccine Quad ID [facility] 18-64 YRS Branch Influenza Virus Unknown Completed [facility] Vaccine Quad IM 3+ [facility] Influenza Virus Unknown Completed [facility] Vaccine Quad .5 mL [facility] IM 6+ MO Branch (FLUZONE/FLULAVAL/F LUARIX) Influenza Virus Unknown Completed [facility] Vaccine Quad .5 mL [facility] IM 6+ MO Branch (FLUZONE/FLULAVAL/F LUARIX) Pneumococcal 13 Unknown Completed [facility] Conjugate, PCV13 [place] [facility] (Prevnar 13) Branch Influenza Virus Unknown Completed [facility] Vaccine Quad .5 mL [facility] IM 6+ MO Branch (FLUZONE/FLULAVAL/F LUARIX) SARS-COV-2 COVID-19 Unknown Completed [facility]ity of PFIZER VACCINE [facility] Branch SARS-COV-2 COVID-19 Unknown Completed [facility] of PFIZER VACCINE [facility] Branch Pneumococcal Unknown Completed [facility] o f Polysaccharide, [facility] ical PPSV23 (PNEUMOVAX) Branch Influenza Virus Unknown Completed [facility] Vaccine,quad [place] [facility] 65+ (FLUAD) Influenza Virus Unknown Completed [facility] Vaccine,quad [facility] Branch 65+ (FLUAD) Hep B, Adol or Pedi Unknown Completed [facility] of Dosage [facility] Hep B, Adol or Pedi Unknown Completed [facility] of Dosage [facility] Influenza Virus Unknown Completed [facility] Vaccine [facility] Pneumococcal Unknown Completed [facility] o [facility] Polysaccharide, [facility] ical PPSV23 (PNEUMOVAX) Branch H1n1 Vaccine Unknown Completed [facility] Hep B, Adol or Pedi Unknown Completed [facility] Dosage [facility] Influenza Virus Unknown Completed [facility] Vaccine [facility] Influenza Virus Unknown Completed [facility] Vaccine [facility] Influenza Virus Unknown Completed [facility] Vaccine [facility] Influenza Virus Unknown Completed [facility] Vaccine [facility] Influenza Virus Unknown Completed [facility] Vaccine (3+ yrs) [facility] dical Branch Influenza Virus Unknown Completed [facility] Vaccine Quad ID [facility] 18-64 YRS Branch Influenza Virus Unknown Completed [facility] Vaccine Quad IM [facility] Multi-dose 6+ MO Branch TDAP Unknown Completed [facility] Influenza Virus Unknown Completed [facility] Vaccine Quad ID [facility] 18-64 YRS Branch Influenza Virus Unknown Completed [facility] Vaccine Quad IM 3+ [facility] Branch Influenza Virus Unknown Completed [facility] Vaccine Quad .5 mL [facility] IM 6+ MO Branch (FLUZONE/FLULAVAL/F LUARIX) Influenza Virus Unknown Completed [facility] Vaccine Quad .5 mL [facility] IM 6+ MO Branch (FLUZONE/FLULAVAL/F LUARIX) Pneumococcal 13 Unknown Completed [facility] of Conjugate, PCV13 [facility] dical (Prevnar 13) Branch Influenza Virus Unknown Completed [facility] Vaccine Quad .5 mL [facility] IM 6+ MO Branch (FLUZONE/FLULAVAL/F LUARIX) SARS-COV-2 COVID-19 Unknown Completed [facility]ity of PFIZER VACCINE [facility] Branch SARS-COV-2 COVID-19 Unknown Completed [facility] of PFIZER VACCINE [facility] Branch Pneumococcal Unknown Completed [facility] o f Polysaccharide, [facility] PPSV23 (PNEUMOVAX) Branch Influenza Virus Unknown Completed [facility] Vaccine,quad [facility] Branch 65+ (FLUAD) Influenza Virus Unknown Completed [facility] Vaccine,quad [facility] 65+ (FLUAD) Hep B, Adol or Pedi Unknown Completed [facility] of Dosage [facility] Hep B, Adol or Pedi Unknown Completed [facility] of Dosage [facility] Influenza Virus Unknown Completed [facility] Vaccine [facility] Pneumococcal Unknown Completed [facility] o f Polysaccharide, [facility] ical PPSV23 (PNEUMOVAX) Branch H1n1 Vaccine Unknown Completed [facility] Hep B, Adol or Pedi Unknown Completed [facility] Dosage [facility] Influenza Virus Unknown Completed [facility] Vaccine [facility] Influenza Virus Unknown Completed [facility] Vaccine [facility] Influenza Virus Unknown Completed [facility] Vaccine [facility] Influenza Virus Unknown Completed [facility] Vaccine [facility] Influenza Virus Unknown Completed [facility] Vaccine (3+ yrs) [facility] dical Branch Influenza Virus Unknown Completed [facility] Vaccine Quad ID [place] [facility] 18-64 YRS Branch Influenza Virus Unknown Completed [facility] Vaccine Quad IM [facility] Multi-dose 6+ MO Branch TDAP Unknown Completed [facility] Branch Influenza Virus Unknown Completed [facility] Vaccine Quad ID [place] [facility] 18-64 YRS Branch Influenza Virus Unknown Completed [facility] Vaccine Quad IM 3+ [facility] Influenza Virus Unknown Completed [facility] Vaccine Quad .5 mL [facility] IM 6+ MO Branch (FLUZONE/FLULAVAL/F LUARIX) Influenza Virus Unknown Completed [facility] Vaccine Quad .5 mL [facility] IM 6+ MO Branch (FLUZONE/FLULAVAL/F LUARIX) Pneumococcal 13 Unknown Completed [facility] Conjugate, PCV13 [place] [facility] (Prevnar 13) Branch Influenza Virus Unknown Completed [facility] Vaccine Quad .5 mL [facility] IM 6+ MO Branch (FLUZONE/FLULAVAL/F LUARIX) SARS-COV-2 COVID-19 Unknown Completed [facility]ity of PFIZER VACCINE [facility] Branch SARS-COV-2 COVID-19 Unknown Completed [facility] of PFIZER VACCINE [facility] Branch Pneumococcal Unknown Completed [facility] o f Polysaccharide, [facility] ical PPSV23 (PNEUMOVAX) Branch Influenza Virus Unknown Completed [facility] Vaccine,quad [place] [facility] Branch 65+ (FLUAD) Influenza Virus Unknown Completed [facility] Vaccine,quad [facility] Branch 65+ (FLUAD) Hep B, Adol or Pedi Unknown Completed [facility] of Dosage [facility] Hep B, Adol or Pedi Unknown Completed [facility] of Dosage [facility] Influenza Virus Unknown Completed [facility] Vaccine [facility] Pneumococcal Unknown Completed [facility] o f Polysaccharide, [facility] ical PPSV23 (PNEUMOVAX) Branch H1n1 Vaccine Unknown Completed [facility] Hep B, Adol or Pedi Unknown Completed [facility] of Dosage [facility] Influenza Virus Unknown Completed [facility] Vaccine [facility] Influenza Virus Unknown Completed [facility] Vaccine [facility] Influenza Virus Unknown Completed [facility] Vaccine [facility] Influenza Virus Unknown Completed [facility] Vaccine [facility] Influenza Virus Unknown Completed [facility] y [facility] Vaccine (3+ yrs) [facility] dical Branch Influenza Virus Unknown Completed [facility] Vaccine Quad ID [place] [facility] 18-64 YRS Branch Influenza Virus Unknown Completed [facility] Vaccine Quad IM [facility] Multi-dose 6+ MO Branch TDAP Unknown Completed [facility] Influenza Virus Unknown Completed [facility] Vaccine Quad ID [place] [facility] 18-64 YRS Branch Influenza Virus Unknown Completed [facility] Vaccine Quad IM 3+ [facility] Branch Influenza Virus Unknown Completed [facility] Vaccine Quad .5 mL [facility] IM 6+ MO Branch (FLUZONE/FLULAVAL/F LUARIX) Influenza Virus Unknown Completed [facility] Vaccine Quad .5 mL [facility] IM 6+ MO Branch (FLUZONE/FLULAVAL/F LUARIX) Pneumococcal 13 Unknown Completed [facility] Conjugate, PCV13 [place] [facility] (Prevnar 13) Branch Influenza Virus Unknown Completed [facility] Vaccine Quad .5 mL [facility] IM 6+ MO Branch (FLUZONE/FLULAVAL/F LUARIX) SARS-COV-2 COVID-19 Unknown Completed [facility] rsity of PFIZER VACCINE [facility] Branch SARS-COV-2 COVID-19 Unknown Completed [facility] rsity of PFIZER VACCINE [facility] Branch Pneumococcal Unknown Completed [facility] o f Polysaccharide, [place] [facility] PPSV23 (PNEUMOVAX) Branch Influenza Virus Unknown Completed [facility] Vaccine,quad [place] [facility] 65+ (FLUAD) Influenza Virus Unknown Completed [facility] Vaccine,quad [facility] 65+ (FLUAD) Hep B, Adol or Pedi Unknown Completed [facility] of Dosage [facility] Hep B, Adol or Pedi Unknown Completed [facility]ity of Dosage [facility] Branch Influenza Virus Unknown Completed [facility] Vaccine [facility] Pneumococcal Unknown Completed [facility] o f Polysaccharide, [place] [facility] PPSV23 (PNEUMOVAX) Branch H1n1 Vaccine Unknown Completed [facility] Hep B, Adol or Pedi Unknown Completed [facility]ity of Dosage [facility] Branch Influenza Virus Unknown Completed [facility] Vaccine [facility] Influenza Virus Unknown Completed [facility] Vaccine [facility] Influenza Virus Unknown Completed [facility] Vaccine [facility] Influenza Virus Unknown Completed [facility] Vaccine [facility] Influenza Virus Unknown Completed [facility] Vaccine (3+ yrs) [facility] dical Branch Influenza Virus Unknown Completed [facility] Vaccine Quad ID [place] [facility] 18-64 YRS Branch Influenza Virus Unknown Completed [facility] Vaccine Quad IM [facility] Multi-dose 6+ MO Branch TDAP Unknown Completed [facility] Influenza Virus Unknown Completed [facility] Vaccine Quad ID [place] [facility] 18-64 YRS Branch Influenza Virus Unknown Completed [facility] Vaccine Quad IM 3+ [facility] Influenza Virus Unknown Completed [facility] Vaccine Quad .5 mL [facility] IM 6+ MO Branch (FLUZONE/FLULAVAL/F LUARIX) Influenza Virus Unknown Completed [facility] Vaccine Quad .5 mL [facility] IM 6+ MO Branch (FLUZONE/FLULAVAL/F LUARIX) Pneumococcal 13 Unknown Completed [facility] of Conjugate, PCV13 [facility] dical (Prevnar 13) Branch Influenza Virus Unknown Completed [facility] Vaccine Quad .5 mL [facility] IM 6+ MO Branch (FLUZONE/FLULAVAL/F LUARIX) SARS-COV-2 COVID-19 Unknown Completed Unive rsity of PFIZER VACCINE [facility] Branch SARS-COV-2 COVID-19 Unknown Completed [facility] rsity of PFIZER VACCINE [facility] Branch Pneumococcal Unknown Completed [facility] o f Polysaccharide, [facility] ical PPSV23 (PNEUMOVAX) Branch Influenza Virus Unknown Completed [facility] Vaccine,quad [place] [facility] 65+ (FLUAD) Influenza Virus Unknown Completed [facility] Vaccine,quad [facility] 65+ (FLUAD) Hep B, Adol or Pedi Unknown Completed [facility]ity of Dosage [facility] Hep B, Adol or Pedi Unknown Completed [facility] of Dosage [facility] Influenza Virus Unknown Completed [facility] Vaccine [facility] Pneumococcal Unknown Completed [facility] o f Polysaccharide, [facility] ical PPSV23 (PNEUMOVAX) Branch H1n1 Vaccine Unknown Completed [facility] Hep B, Adol or Pedi Unknown Completed [facility]ive rsity of Dosage [facility] Branch Influenza Virus Unknown Completed [facility] Vaccine [facility] Influenza Virus Unknown Completed [facility] [place] Medical Branch Influenza Virus Unknown Completed Universit y of Vaccine [facility] Influenza Virus Unknown Completed [facility] of Vaccine [facility] Influenza Virus Unknown Completed Universit y of Vaccine (3+ yrs) [facility] dical Branch Influenza Virus Unknown Completed Universit y of Vaccine Quad ID [place] [facility] 18-64 YRS Branch Influenza Virus Unknown Completed Universit y of Vaccine Quad IM [facility] ical Multi-dose 6+ MO Branch TDAP Unknown Completed [facility] [place] [facility] Influenza Virus Unknown Completed [facility]it y of Vaccine Quad ID [place] [facility] 18-64 YRS Branch Influenza Virus Unknown Completed Universit y of Vaccine Quad IM 3+ [place] [facility] Y[facility] Influenza Virus Unknown Completed Universit y of Vaccine Quad .5 mL [place] [facility] IM 6+ MO Branch (FLUZONE/FLULAVAL/F LUARIX) Influenza Virus Unknown Completed Universit y of Vaccine Quad .5 mL [place] [facility] IM 6+ MO Branch (FLUZONE/FLULAVAL/F LUARIX) Pneumococcal 13 Unknown Completed Universit y of Conjugate, PCV13 [place] [facility] (Prevnar 13) Branch Influenza Virus Unknown Completed Universit y of Vaccine Quad .5 mL [place] [facility] IM 6+ MO Branch (FLUZONE/FLULAVAL/F LUARIX) SARS-COV-2 COVID-19 Unknown Completed Unive rsity of PFIZER VACCINE [facility] Branch SARS-COV-2 COVID-19 Unknown Completed Unive rsity of PFIZER VACCINE [facility] Branch Pneumococcal Unknown Completed University o f Polysaccharide, [facility] ical PPSV23 (PNEUMOVAX) Branch Influenza Virus Unknown Completed Universit y of Vaccine,quad [place] [facility],preserve Free Branch 65+ (FLUAD) Influenza Virus Unknown Completed Universit y of Vaccine,quad [place] [facility] Im,preserve Free Branch 65+ (FLUAD) Hep B, Adol or Pedi Unknown Completed Unive rsity of Dosage [facility] Hep B, Adol or Pedi Unknown Completed Unive rsity of Dosage [facility] Branch Influenza Virus Unknown Completed Universit y of Vaccine [facility] Pneumococcal Unknown Completed University o f Polysaccharide, [facility] ical PPSV23 (PNEUMOVAX) Branch H1n1 Vaccine Unknown Completed University o f [place] [facility] Hep B, Adol or Pedi Unknown Completed Unive rsity of Dosage [facility] Influenza Virus Unknown Completed [facility]it y of Vaccine [facility] Influenza Virus Unknown Completed Universit y of Vaccine [facility] Branch Influenza Virus Unknown Completed Universit y of Vaccine [facility] Influenza Virus Unknown Completed [facility]it y of Vaccine [facility] Influenza Virus Unknown Completed Universit y of Vaccine (3+ yrs) [facility] dical Branch Influenza Virus Unknown Completed Universit y of Vaccine Quad ID [place] [facility] 18-64 YRS Branch Influenza Virus Unknown Completed Universit y of Vaccine Quad IM [facility] ical Multi-dose 6+ MO Branch TDAP Unknown Completed [facility] Influenza Virus Unknown Completed Universit y of Vaccine Quad ID [place] [facility] 18-64 YRS Branch Influenza Virus Unknown Completed [facility]it y of Vaccine Quad IM 3+ [place] [facility] YRS [facility] Influenza Virus Unknown Completed Universit y of Vaccine Quad .5 mL [place] [facility] IM 6+ MO Branch (FLUZONE/FLULAVAL/F LUARIX) Influenza Virus Unknown Completed Universit y of Vaccine Quad .5 mL [place] [facility] IM 6+ MO Branch (FLUZONE/FLULAVAL/F LUARIX) Pneumococcal 13 Unknown Completed Universit y of Conjugate, PCV13 [place] [facility] (Prevnar 13) Branch Influenza Virus Unknown Completed Universit y of Vaccine Quad .5 mL [place] [facility] IM 6+ MO Branch (FLUZONE/FLULAVAL/F LUARIX) SARS-COV-2 COVID-19 Unknown Completed Unive rsity of PFIZER VACCINE [facility] Branch SARS-COV-2 COVID-19 Unknown Completed Unive rsity of PFIZER VACCINE [facility] Branch Pneumococcal Unknown Completed University o f Polysaccharide, [facility] ical PPSV23 (PNEUMOVAX) Branch Influenza Virus Unknown Completed Universit y of Vaccine,quad [place] [facility] Im,preserve Free Branch 65+ (FLUAD) Influenza Virus Unknown Completed [facility]it y of Vaccine,quad [place] [facility],preserve Free Branch 65+ (FLUAD) Hep B, Adol or Pedi Unknown Completed Unive rsity of Dosage [facility] Hep B, Adol or Pedi Unknown Completed Unive rsity of Dosage [facility] Influenza Virus Unknown Completed Universit y of Vaccine [facility] Pneumococcal Unknown Completed University o f Polysaccharide, [facility] ical PPSV23 (PNEUMOVAX) Branch H1n1 Vaccine Unknown Completed University o f [place] [facility] Hep B, Adol or Pedi Unknown Completed Unive rsity of Dosage [facility] Influenza Virus Unknown Completed [facility]it y of Vaccine [facility] Influenza Virus Unknown Completed [facility] y of Vaccine [facility] Influenza Virus Unknown Completed [facility] y of Vaccine [facility] Influenza Virus Unknown Completed [facility]it y of Vaccine [facility] Influenza Virus Unknown Completed Universit y of Vaccine (3+ yrs) [facility] dical Branch Influenza Virus Unknown Completed [facility]it y of Vaccine Quad ID [place] [facility] 18-64 YRS Branch Influenza Virus Unknown Completed [facility]it y of Vaccine Quad IM [place] [facility] Multi-dose 6+ MO Branch TDAP Unknown Completed [facility] Influenza Virus Unknown Completed Universit y of Vaccine Quad ID [place] [facility] 18-64 YRS Branch Influenza Virus Unknown Completed [facility]it y of Vaccine Quad IM 3+ [place] [facility] YRS [facility] Influenza Virus Unknown Completed Universit y of Vaccine Quad .5 mL [place] [facility] IM 6+ MO Branch (FLUZONE/FLULAVAL/F LUARIX) Influenza Virus Unknown Completed Universit y of Vaccine Quad .5 mL [place] [facility] IM 6+ MO Branch (FLUZONE/FLULAVAL/F LUARIX) Pneumococcal 13 Unknown Completed Universit y of Conjugate, PCV13 [place] [facility] (Prevnar 13) Branch Influenza Virus Unknown Completed Universit y of Vaccine Quad .5 mL [place] [facility] IM 6+ MO Branch (FLUZONE/FLULAVAL/F LUARIX) SARS-COV-2 COVID-19 Unknown Completed Unive rsity of PFIZER VACCINE [facility] Branch SARS-COV-2 COVID-19 Unknown Completed Unive rsity of PFIZER VACCINE [facility] Branch Pneumococcal Unknown Completed University o f Polysaccharide, [place] [facility] PPSV23 (PNEUMOVAX) Branch Influenza Virus Unknown Completed [facility]it y of Vaccine,quad [place] [facility] Im,preserve Free Branch 65+ (FLUAD) Influenza Virus Unknown Completed [facility]it y of Vaccine,quad [place] [facility],preserve Free Branch 65+ (FLUAD) Hep B, Adol or Pedi Unknown Completed Unive rsity of Dosage [facility] Hep B, Adol or Pedi Unknown Completed Unive rsity of Dosage [facility] Influenza Virus Unknown Completed [facility]it y of Vaccine [facility] Pneumococcal Unknown Completed University o f Polysaccharide, [place] [facility] PPSV23 (PNEUMOVAX) Branch H1n1 Vaccine Unknown Completed University o f [place] [facility] Hep B, Adol or Pedi Unknown Completed Unive rsity of Dosage [facility] Influenza Virus Unknown Completed [facility]it y of Vaccine [facility] Influenza Virus Unknown Completed [facility]it y of Vaccine [facility] Influenza Virus Unknown Completed [facility] y of Vaccine [facility] Influenza Virus Unknown Completed [facility] y of Vaccine [facility] Influenza Virus Unknown Completed Universit y of Vaccine (3+ yrs) [facility] dical Branch Influenza Virus Unknown Completed [facility]it y of Vaccine Quad ID [place] [facility] 18-64 YRS Branch Influenza Virus Unknown Completed [facility]it y of Vaccine Quad IM [place] [facility] Multi-dose 6+ MO Branch TDAP Unknown Completed [facility] [place] [facility] Influenza Virus Unknown Completed [facility]it y of Vaccine Quad ID [place] [facility] 18-64 YRS Branch Influenza Virus Unknown Completed [facility]it y of Vaccine Quad IM 3+ [place] [facility] YRS [facility] Influenza Virus Unknown Completed Universit y of Vaccine Quad .5 mL [place] [facility] IM 6+ MO Branch (FLUZONE/FLULAVAL/F LUARIX) Influenza Virus Unknown Completed Universit y of Vaccine Quad .5 mL [place] [facility] IM 6+ MO Branch (FLUZONE/FLULAVAL/F LUARIX) Pneumococcal 13 Unknown Completed Universit y of Conjugate, PCV13 [place] [facility] (Prevnar 13) Branch Influenza Virus Unknown Completed Universit y of Vaccine Quad .5 mL [place] [facility] IM 6+ MO Branch (FLUZONE/FLULAVAL/F LUARIX) SARS-COV-2 COVID-19 Unknown Completed Unive rsity of PFIZER VACCINE [facility] Branch SARS-COV-2 COVID-19 Unknown Completed Unive rsity of PFIZER VACCINE [facility] Branch Pneumococcal Unknown Completed [place] o Polysaccharide, [facility] ica PPSV23 (PNEUMOVAX) Branch Influenza Virus Unknown Completed Universit y of Vaccine,quad [place] [facility] Im,preserve Free Branch 65+ (FLUAD) Influenza Virus Unknown Completed [facility]it y of Vaccine,quad [place] [facility],preserve Free Branch 65+ (FLUAD) Vital Signs Vital Name Observation Time Observation Value Comments Source Systolic blood 2023-10-08 22:20:00 126 mm[Hg] Univer sity of [facility] Diastolic blood 2023-10-08 22:20:00 72 mm[Hg] Unive rsity [facility] Heart rate 2023-10-08 22:20:00 84 /min [facility] Respiratory rate 2023-10-08 22:20:00 16 /min [facility] height 2023-10-08 22:20:00 149.9 cm [facility] Body weight 2023-10-08 22:20:00 67.161 kg [facility] BMI 2023-10-08 22:20:00 29.91 kg/m2 [facility] Systolic blood 2023-09-16 20:32:00 108 mm[Hg] Univer sity of [facility] Diastolic blood 2023-09-16 20:32:00 71 mm[Hg] Unive rsity of pressure [facility] Heart rate 2023-09-16 20:32:00 52 /min Universi ty of [facility] Body height 2023-09-16 20:32:00 149.9 cm Universi ty of [facility] Body weight 2023-09-16 20:32:00 65.318 kg Universi ty of [place] [facility] BMI 2023-09-16 20:32:00 29.08 kg/m2 Universi ty of [place] [facility] Oxygen saturation in 2023-09-16 20:32:00 98 /min University of Arterial blood by [facility] Pulse oximetry Branch Systolic blood 2023-08-20 20:49:00 130 mm[Hg] Univer sity of pressure [facility] Diastolic blood 2023-08-20 20:49:00 79 mm[Hg] Unive rsity of pressure [facility] Heart rate 2023-08-20 20:49:00 61 /min Universi ty of [facility] Oxygen saturation in 2023-08-20 20:49:00 97 /min University of Arterial blood by [facility] Pulse oximetry Branch Body temperature 2023-08-20 20:48:00 37.17 Jane Univ ersity of [facility] Body height 2023-08-20 20:48:00 149.9 cm Universi ty of [facility] Body weight 2023-08-20 20:48:00 66.225 kg Universi ty of [facility] BMI 2023-08-20 20:48:00 29.49 kg/m2 Universi ty of [facility] Systolic blood 2023-06-18 14:30:00 126 mm[Hg] Univer sity of pressure [facility] Diastolic blood 2023-06-18 14:30:00 72 mm[Hg] Unive rsity of pressure [facility] Heart rate 2023-06-18 14:30:00 96 /min Universi ty of [facility] Body temperature 2023-06-18 14:30:00 37 Jane Univ ersity of [place] [facility] Respiratory rate 2023-06-18 14:30:00 16 /min Univ ersity of [facility] Body height 2023-06-18 14:30:00 149.9 cm Universi ty of [facility] Body weight 2023-06-18 14:30:00 65.772 kg Universi ty of [place] [facility] BMI 2023-06-18 14:30:00 29.29 kg/m2 [facility]i ty of [place] [facility] [place] Oxygen saturation in 2023-06-18 14:30:00 98 /min [facility] by [place] [facility] Pulse oxim[facility] Branch Body weight 2023-06-11 19:16:00 65.772 kg Universi ty of [place] [facility] [place] BMI 2023-06-11 19:16:00 29.29 kg/m2 Universi ty of [facility] Systolic blood 2023-06-05 20:45:00 111 mm[Hg] Univer sity of pressure [facility] Diastolic blood 2023-06-05 20:45:00 73 mm[Hg] Unive rsity of pressure [facility] Heart rate 2023-06-05 20:45:00 56 /min Universi ty of [place] [facility] [place] Body height 2023-06-05 20:45:00 149.9 cm Universi ty of [place] [facility] [place] Body weight 2023-06-05 20:45:00 66.18 kg Universi ty of [place] [facility] [place] BMI 2023-06-05 20:45:00 29.47 kg/m2 Universi ty of [place] [facility] Systolic blood 2023-06-02 20:27:00 105 mm[Hg] Univer sity of pressure [facility] Diastolic blood 2023-06-02 20:27:00 70 mm[Hg] Unive rsity of pressure [facility] [place] Heart rate 2023-06-02 20:27:00 70 /min Universi ty of [place] [facility] [place] Body height 2023-06-02 20:27:00 149.9 cm Universi ty of [facility] Body weight 2023-06-02 20:27:00 65.681 kg Universi ty of [place] [facility] BMI 2023-06-02 20:27:00 29.25 kg/m2 Universi ty of [facility] Oxygen saturation in 2023-06-02 20:27:00 99 /min University of Arterial blood by [facility] Pulse oximetry Branch Systolic blood 2023-05-01 14:17:00 130 mm[Hg] Univer sity of pressure [facility] [place] Diastolic blood 2023-05-01 14:17:00 62 mm[Hg] Unive rsity of pressure [facility] Heart rate 2023-05-01 14:17:00 60 /min Universi ty of [facility] Respiratory rate 2023-05-01 14:17:00 18 /min Univ ersity of [facility] Body height 2023-05-01 14:17:00 149.9 cm Universi ty of [facility] Body weight 2023-05-01 14:17:00 65.862 kg Universi ty of [facility] BMI 2023-05-01 14:17:00 29.33 kg/m2 [facility] ty of [facility] Oxygen saturation in 2023-05-01 14:17:00 98 /min University of Arterial blood by [facility]ann Pulse oximetry Branch Systolic blood 2023-04-03 14:04:00 132 mm[Hg] Univer sity of pressure [facility] Diastolic blood 2023-04-03 14:04:00 82 mm[Hg] Unive rsity of pressure [facility] Heart rate 2023-04-03 14:04:00 72 /min Universi ty of [facility] Body temperature 2023-04-03 14:04:00 36.78 Jane Univ ersity of [facility] Body height 2023-04-03 14:04:00 149.9 cm Universi ty of [facility] Body weight 2023-04-03 14:04:00 66.588 kg Universi ty of [facility] BMI 2023-04-03 14:04:00 29.65 kg/m2 [facility] ty of [facility] Oxygen saturation in 2023-04-03 14:04:00 98 /min University of Arterial blood by [facility] Pulse oximetry Branch Systolic blood 2023-03-11 15:38:00 123 mm[Hg] Univer sity of pressure [facility] Diastolic blood 2023-03-11 15:38:00 58 mm[Hg] Unive rsity of pressure [facility] Heart rate 2023-03-11 15:38:00 58 /min Universi ty of [place] [facility] Body height 2023-03-11 15:38:00 149.9 cm Universi ty of [place] [facility] Body weight 2023-03-11 15:38:00 67.087 kg [facility]i ty of [place] [facility] BMI 2023-03-11 15:38:00 29.87 kg/m2 Universi ty of [facility] Oxygen saturation in 2023-03-11 15:38:00 97 /min University of Arterial blood by [facility] Pulse oximetry Branch Systolic blood 2023-02-18 18:20:00 144 mm[Hg] Univer sity of pressure [facility] Diastolic blood 2023-02-18 18:20:00 78 mm[Hg] Unive rsity of pressure [facility] Heart rate 2023-02-18 18:20:00 67 /min Universi ty of [facility] Oxygen saturation in 2023-02-18 18:20:00 99 /min University of Arterial blood by [facility] Pulse oximetry Branch Body temperature 2023-02-18 18:19:00 36.56 Jane Univ ersity of [facility] Respiratory rate 2023-02-18 18:19:00 16 /min Univ ersity of [facility] Body height 2023-02-18 18:19:00 144.8 cm Universi ty of [facility] Body weight 2023-02-18 18:19:00 67.268 kg Universi ty of [facility] BMI 2023-02-18 18:19:00 32.09 kg/m2 Universi ty of [place] [facility] Systolic blood 2023-02-13 13:06:00 144 mm[Hg] Univer sity of pressure [facility] Diastolic blood 2023-02-13 13:06:00 77 mm[Hg] Unive rsity of pressure [facility] Heart rate 2023-02-13 13:06:00 63 /min Universi ty of [facility] Body height 2023-02-13 13:06:00 144.8 cm [facility]i ty of [facility] Body weight 2023-02-13 13:06:00 68.493 kg [facility]i ty of [facility] BMI 2023-02-13 13:06:00 32.68 kg/m2 [facility] ty of [place] [facility] Systolic blood 2023-01-27 21:18:00 104 mm[Hg] Univer sity of pressure [facility] Diastolic blood 2023-01-27 21:18:00 63 mm[Hg] Unive rsity of pressure [facility] Heart rate 2023-01-27 21:18:00 67 /min Universi ty of [facility] Body temperature 2023-01-27 21:18:00 36.67 Jane Univ ersity of [facility] Body height 2023-01-27 21:18:00 144.8 cm [facility]i ty [facility] Body weight 2023-01-27 21:18:00 68.493 kg Universi ty of [facility] BMI 2023-01-27 21:18:00 32.68 kg/m2 [facility]i ty of [facility] Oxygen saturation in 2023-01-27 21:18:00 98 /min University of Arterial blood by [facility] Pulse oximetry Branch Body height 2023-01-02 14:45:00 149.9 cm Universi ty of [facility] Body weight 2023-01-02 14:45:00 68.493 kg Universi ty of [facility] BMI 2023-01-02 14:45:00 30.50 kg/m2 [facility] ty of [facility] Systolic blood 2022-09-16 14:32:00 130 mm[Hg] Univer sity of pressure [facility] Diastolic blood 2022-09-16 14:32:00 78 mm[Hg] Unive rsity of pressure [facility] Heart rate 2022-09-16 14:32:00 59 /min Universi ty of [facility] Body height 2022-09-16 14:32:00 149.9 cm Universi ty of [facility] Body weight 2022-09-16 14:32:00 68.493 kg Universi ty of [facility] BMI 2022-09-16 14:32:00 30.50 kg/m2 Universi ty of [facility] Oxygen saturation in 2022-09-16 14:32:00 98 /min University of Arterial blood by [facility] Pulse oximetry Branch Systolic blood 2022-08-20 18:53:00 120 mm[Hg] Univer sity of pressure [facility] Diastolic blood 2022-08-20 18:53:00 75 mm[Hg] Unive rsity of pressure [facility] Heart rate 2022-08-20 18:53:00 71 /min Universi ty of [facility] Oxygen saturation in 2022-08-20 18:53:00 96 /min [facility]ial blood by [place] [facility] Pulse oximetry Branch Body temperature 2022-08-20 18:51:00 36.39 Jane Univ ersity of [facility] Body height 2022-08-20 18:51:00 149.9 cm Universi ty of [facility] Body weight 2022-08-20 18:51:00 68.811 kg Universi ty [facility] BMI 2022-08-20 18:51:00 30.64 kg/m2 Universi ty [facility] Systolic blood 2022-07-18 20:34:00 120 mm[Hg] Univer sity of pressure [facility] Diastolic blood 2022-07-18 20:34:00 67 mm[Hg] Unive rsity of [facility] Heart rate 2022-07-18 20:34:00 64 /min Universi ty [facility] Body temperature 2022-07-18 20:34:00 36.72 Jane Univ ersity of [facility] Body height 2022-07-18 20:34:00 149.9 cm Universi [facility] Body weight 2022-07-18 20:34:00 68.04 kg Universi [facility] BMI 2022-07-18 20:34:00 30.30 kg/m2 Universi [facility] Oxygen saturation in 2022-07-18 20:34:00 98 /min [facility] blood by [facility] Pulse oximetry Branch Procedures Procedure Date / Time Performing Clinician Source Performed BI SELF-REQUESTED 2023-10-23 15:49:57 Simone Bill [facility] SCREENING TOMOSYNTHESIS [facility] BILATERAL TRANSPLANT/EXT PROVIDER 2023-10-02 06:01:00 Doctor Unassigned, [facility] LAB/PATHOLOGY [facility] EXTERNAL DD-CFDNA 2023-10-02 06:00:00 Chante Medel [facility] XR LUMBAR SPINE 2 VW 2023-09-21 15:10:09 Simone Bill [facility] XR HIPS 3 VW LEFT 2023-09-21 15:10:09 Simone Bill [facility] FLU 2023-09-16 21:13:10 Simone Bill [place] f [place] VACC(),65+YR,0.5 Medica l Branch ML,IM,ADJUVANTED,QUAD(FLU AD) PHOSPHORUS 2023-06-05 14:39:00 [facility] MAGNESIUM 2023-06-05 14:39:00 [facility]OLIC PANEL 2023-06-05 14:39:00 Vicki Mcnally [facility] (NA, K, CL, CO2, GLUCOSE, Medica l Branch BUN, CREATININE, CA) CBC WITH DIFF 2023-06-05 14:39:00 Dali [facility] [place] URINALYSIS 2023-06-05 14:39:00 Dali [facility] [place] CREATININE, URINE RANDOM 2023-06-05 14:39:00 Dali [facility] TOTAL PROTEIN, URINE 2023-06-05 14:39:00 Dali [facility] TRANSPLANT/EXT PROVIDER 2023-06-05 05:01:00 Doctor Unasshugo, [facility] LAB/PATHOLOGY [facility] EXTERNAL DD-CFDNA 2023-06-05 05:00:00 Aryan Price [facility] XR CHEST 2 VW 2023-05-01 15:33:28 [facility] o [facility] INSURANCE CORRESPONDENCE 2023-03-30 05:01:00 Doctor Kenton, [facility] Name [facility] CT THORAX WO CONTRAST 2023-02-09 [facility] CONS[facility]/REFUSAL FOR 2023-02-09 15:57:17 Doctor Kenton, [facility] DIAGNOSIS AND TREATMENT [facility] [place] ASSIGNMENT OF BENEFITS 2023-02-09 15:56:47 Doctor Unassigned, Un [facility] Name Medical [place] FLU 2023-01-27 21:32:49 Simone Bill [place] [facility] [place] VACC(),65+YR,0.5 Medica l Branch ML,IM,ADJUVANTED,QUAD(FLU AD) [facility] PATIENT FINANCIAL 2023-01-26 22:10:34 Doctor Unassigned, [facility] POLICY [facility] [place] URINALYSIS 2022-12-29 14:40:00 Dali V[facility] CREATININE, URINE RANDOM 2022-12-29 14:40:00 Dali [facility] TOTAL PROTEIN, URINE 2022-12-29 14:40:00 Dali [facility] RANDOM Medical Branch PHOSPHORUS 2022-12-29 14:32:00 Dali [facility] [place] MAGNESIUM 2022-12-29 14:32:00 Dali [facility] [place] BASIC METABOLIC PANEL 2022-12-29 14:32:00 Vicki Mcnally [facility] (NA, K, CL, CO2, GLUCOSE, Medica l Branch BUN, CREATININE, CA) CBC WITH DIFF 2022-12-29 14:32:00 Dali [facility] [place] ASSIGNMENT OF BENEFITS 2022-12-29 14:15:36 Doctor Unassigned, [facility] Wright [facility] PULMONARY FUNCTION TEST 2022-10-14 18:53:02 Kristen Liang [facility] (RESULTS) [facility] Encounters Start End Encounter Admission Attending Care Care Encounter Source Date/Time Date/Time Type Type Clinicians Facility Department ID 2023-10-27 2023-10-27 Outpatient Johan BILL [facility] [id number] Univers 13:30:00 13:30:00 SIMONE sultana [facility] 2023-10-23 2023-10-23 Outpatient Johan PURDY [facility] [id number] Univers 09:00:41 23:59:00 ISIDRO kruger [facility] 2023-10-23 2023-10-23 Hospital Indra [facility] [id number] Univers 09:00:41 23:59:00 Encounter Isidro DUTTON [id number] ity of [place] [id number] [facility] [id number] [facility] 800 Branch 2023-10-23 2023-10-23 Patient Doctor [facility] [id number] Univers 00:00:00 00:00:00 Secure Msg Unassigned, [facility] [id number] ity of [place] [id number] Beau as RAVI?BLEA [id number] Mn chandrakant MOMIN [address] [place] MEDICAL OFFICE [facility] 2023-10-14 2023-10-14 Outpatient R LALITHA [facility] [id number] Univers 15:30:00 15:30:00 SENDIL ity of [facility] 2023-10-08 2023-10-08 Outpatient R [facility]EL [facility] [id number] Univers 16:00:00 16:33:37 ANEL ity [facility] 2023-10-08 2023-10-08 Office [facility] 1.2.840.114 [id number] Univers 16:00:00 16:33:37 Visit [facility] 350.1.13.10 it y of [place] 4.2.7.2.686 Beau as RAVI?BLEA [id number] Mn chandrakant [address] OFFICE [facility] 2023-10-06 2023-10-06 Abstract Chante Medel [facility] 1.2.840.114 1 [id number] Univers 00:00:00 00:00:00 MULTISPEC 350.1.13.10 it[facility] 4.2.7.2.686 [facility] [id number] [facility] AND [address] [facility] 2023-10-05 2023-10-05 Outpatient R HEMANT [facility] [id number] Univers 15:40:00 15:40:00 kayy ELLIOTT of [facility] 2023-10-02 2023-10-02 Orders Doctor MICHELINE 1.2.840.114 [id number] Univers 00:00:00 00:00:00 Only Unassigned, CARLA 350.1.13.10 ity of [place] [facility] 4.2.7.2.686 Beau as [id number] [address] 2023-10-01 2023-10-01 Outpatient R [facility] [id number] Univers 16:15:00 16:15:00 ANEL ity [facility] 2023-09-23 2023-09-23 Patient Landy [facility] 1.2.840.114 [id number] Univers 00:00:00 00:00:00 Secure Msg Simone HEALTH 350.1.13.10 ity of [place] 4.2.7.2.686 Beau as RAVI?BLEA [id number] Mn chandrakant MOMIN [address] [place] [address] MEDICAL OFFICE [facility] 2023-09-22 2023-09-22 Philip Laughlin [facility] 1.2.840.114 10 [id number] Univers 00:00:00 00:00:00 Sheree rush MULTISPEC 350.1.13.10 ity of [place] 4.2.7.2.686 [facility] [id number] [facility] AND [address] [facility] 2023-09-21 2023-09-21 Out[facility] [id number] Univers 09:15:41 23:59:00 SIMONE ity of [facility] 2023-09-21 2023-09-21 Hospital [facility] 1.2.840.114 [id number] Univers 09:15:00 23:59:00 Encounter Simone NATO 350.1.13.10 ity [facility] 4.2.7.2.686 [facility] [id number] [facility] [address] 2023-09-21 2023-09-21 [facility] 1.2.840.114 [id number] Univers 00:00:00 00:00:00 Secure Msg Simone HEALTH 350.1.13.10 ity of [place] 4.2.7.2.686 Beau as RAVI?BLEA [id number] Mn chandrakant MOMIN [address] [place] [address] OFFICE [facility] 2023-09-18 2023-09-18 Patient [facility] 1.2.840.114 [id number] Univers 00:00:00 00:00:00 Secure Msg Simone HEALTH 350.1.13.10 ity of [place] 4.2.7.2.686 Beau as RAVI?BLEA [id number] Mn chandrakant MOMIN [address] [place] [address] OFFICE [facility] 2023-09-18 2023-09-18 Telephone Landy [facility] 1.2.490.820 [id number] Univers 00:00:00 00:00:00 Simone HEALTH 350.1.13.10 it y of [place] 4.2.7.2.686 Beau as RAVI?BLEA [id number] [address] MEDICAL OFFICE [facility] 2023-09-18 2023-09-18 [facility] 1.2.840.114 [id number] Univers 00:00:00 00:00:00 Simone HEALTH 350.1.13.10 it y of [place] 4.2.7.2.686 Beau as RAVI?BLEA [phone] [address] MEDICAL OFFICE [facility] 2023-09-17 2023-09-17 Outpatient R KRISTEN LIANG [facility] 10 [id number] Univers 11:30:00 11:30:00 KRISTEN LIANG i ty [facility] 2023-09-17 2023-09-17 [facility] 1.2.840.114 [id number] Univers 00:00:00 00:00:00 Simone HEALTH 350.1.13.10 it y of [place] 4.2.7.2.686 Beau as RAVI?BLEA [id number] [address] OFFICE [facility] 2023-09-17 2023-09-17 [facility] 1.2.840.114 [id number] Univers 00:00:00 00:00:00 Simone HEALTH 350.1.13.10 it y of [place] 4.2.7.2.686 Beau as RAVI?BLEA [id number] [address] OFFICE [facility] 2023-09-16 2023-09-16 Outpatient R [facility] [id number] Univers 16:30:00 16:57:26 SIMONE itlibrado [facility] 2023-09-16 2023-09-16 An/Syq 13 Nav/C2 Operator Lab, Ang [facility] 1.2.840.1 14 [id number] Univers 16:30:00 16:57:26 Visit Landy Simone HEALTH 350.1.13.10 ity of [place] 4.2.7.2.686 Beau as RAVI?BLEA [id number] [address] OFFICE BUILDING 2023-09-16 2023-09-16 Office [facility] 1.2.840.114 [id number] Univers 15:30:00 16:23:56 Visit Simone HEALTH 350.1.13.10 it y of [place] 4.2.7.2.686 Beau as RAVI?BLEA [id number] [address] MEDICAL OFFICE [facility] 2023-09-13 2023-09-13 Refill [facility] 1.2.840.114 [id number] Univers 00:00:00 00:00:00 Simone HEALTH 350.1.13.10 it y of [place] 4.2.7.2.686 Beau as RAVI?BLEA [id number] [address] MEDICAL OFFICE BUILDING 2023-09-13 2023-09-13 [facility] 1.2.840.114 [id number] Univers 00:00:00 00:00:00 Simone HEALTH 350.1.13.10 it y of [place] 4.2.7.2.686 Beau as RAVI?BLEA [id number] [address] OFFICE [facility] 2023-09-10 2023-09-10 Outpatient R LALITHA [facility] [id number] Univers 15:30:00 15:30:00 SENDIL ity [facility] 2023-09-08 2023-09-08 Outpatient R LANDY [facility] [id number] Univers 15:30:00 15:30:00 SIMONE itlibrado [facility] 2023-09-07 2023-09-07 Outpatient R KRISTEN LIANG [facility] 10 [id number] Univers 09:30:00 09:30:00 KRISTEN LIANG i [facility] 2023-08-20 2023-08-20 Office [facility] 1.2.840.114 10 [id number] Univers 16:00:00 16:20:00 Visit Vicki Mcnally MULTISPEC 350.1.13. 10 ity of [place]2.[place].2.686 [place] [id number] [facility] AND [address] [facility] 2023-08-20 2023-08-20 Outpatient R DALI, [facility] [id number] Univers 16:00:00 16:00:00 VICKI edsonlibrado [facility] 2023-08-19 2023-08-19 Outpatient R [facility] [id number] Univers 14:00:00 14:00:00 ARYAN sandhuy o f [facility] 2023-08-18 2023-08-18 An/Syq 13 Nav/C2 Operator Lab, Ang - Db [facility] 1.2.840.1 14 [id number] Univers 08:30:00 09:24:44 Visit Landy Simone [facility] 350.1.13.10 ity of [place] 4.2.7.2.686 Beau as RAVI?BLEA [id number] [facility] [address] MEDICAL OFFICE [facility] 2023-08-18 2023-08-18 Outpatient R [facility] [id number] Univers 08:30:00 08:30:00 SIMONE sultana [facility] 2023-08-14 2023-08-14 Refill [facility] 1.2.840.114 [id number] Univers 00:00:00 00:00:00 Shiwan [facility] 350.1.13.10 i ty of [place] 4.2.7.2.686 [place] [id number] [facility] 085 [facility] 2023-08-06 2023-08-06 Refill [facility] 1.2.840.114 [id number] Univers 00:00:00 00:00:00 Simone HEALTH 350.1.13.10 it y of [place] 4.2.7.2.686 Beau as RAVI?BLEA [id number] Mn dical [facility] [address] MEDICAL OFFICE [facility] 2023-08-04 2023-08-04 Patient Landy [facility] 1.2.840.114 [id number] Univers 00:00:00 00:00:00 Secure Msg Simone HEALTH 350.1.13.10 ity of [place] 4.2.7.2.686 Beau as RAVI?BLEA [id number] [address] OFFICE [facility] 2023-08-01 2023-08-01 Refgricelda [facility] 1.2.840.114 10 [id number] Univers 00:00:00 00:00:00 Sheree rush MULTISPEC 350.1.13.10 ity of [place]2.[place].2.686 [place] [id number] [address] [facility]ES [facility]INIC 2023-07-30 2023-07-30 Outpatient R LALITHA [facility] [id number] Univers 15:30:00 15:30:00 SENDIL ity of [facility] 2023-07-03 2023-07-03 Patient [facility] 1.2.840.114 [id number] Univers 00:00:00 00:00:00 Secure Msg Simone HEALTH 350.1.13.10 ity of [place] 4.2.7.2.686 Beau as RAVI?BLEA [id number] [address] OFFICE [facility] 2023-07-01 2023-07-01 Refill [facility] 1.2.840.114 [id number] Univers 00:00:00 00:00:00 Simone HEALTH 350.1.13.10 it y of [place] 4.2.7.2.686 Beau as RAVI?BLEA [id number] [address] OFFICE [facility] 2023-06-27 2023-06-27 [facility] 1.2.840.114 [id number] Univers 00:00:00 00:00:00 Sendil [facility] [place] 350.1.13.10 ity of [place] 4.2.7.2.686 [place] [facility] [phone] [place] 899819 [facility] 2023-06-22 2023-06-22 [facility] 1.2.840.114 [id number] Univers 00:00:00 00:00:00 Simone HEALTH 350.1.13.10 it y of [place] 4.2.7.2.686 Beau as RAVI?BLEA [id number] [address] OFFICE [facility] 2023-06-22 2023-06-22 Abstract [facility] 1.2.004.296 [id number] Univers 00:00:00 00:00:00 Baeza A MULTISPEC 350.1.13.10 ity of [place] 4.2.7.2.686 [facility] [id number] [facility] AND [place] [address] [facility]IC 2023-06-18 2023-06-18 Nurse 1, Adc Infusion Nurse [facility] 1.2. 840.114 [id number] Univers 10:00:00 10:15:00 Visit Simone Bill 350.1.13.10 ity [facility] 4.2.7.2.[address] [facility] [id number] [facility] CENTER [address] [place] [address] 2023-06-18 2023-06-18 Outpatient R LANDY [facility] [id number] Univers 10:00:00 10:00:00 SIMONE sultana [facility] 2023-06-12 2023-06-12 Outpatient R [facility] [id number] Univers 10:00:00 10:00:00 ity [facility] 2023-06-11 2023-06-11 Outpatient [facility] [id number] Univers 14:00:00 16:07:32 LUL sandhulibrado [facility] 2023-06-11 2023-06-11 Office [facility] 1.2.840.114 [id number] Univers 14:00:00 16:07:32 Visit Lul ALEJANDRO 350.1.13.10 ity [facility] 4.2.7.2.686 [facility] [phone] [facility] PRIMARY & [address] SPECIALTY CARE 2023-06-10 2023-06-10 Outpatient R QIAN [facility] [id number] Univers 11:15:00 11:26:01 SHEREE RUSH [facility] 2023-06-10 2023-06-10 An/Syq 13 Nav/C2 Operator Lab, Gurwinder - Dereck [facility] 1.2.840.1 14 [id number] Univers 11:15:00 11:26:01 Visit Gamilla-Crudo, Sheree K N HEALTH 350.1.1 3.10 ity of [facility] 4.2.7.2.686 Beau as RAVI?BLEA [id number] Mn chandrakant MOMIN [address] MEDICAL OFFICE [facility] 2023-06-10 2023-06-10 Outpatient R LALITHA [facility] [id number] Univers 10:00:00 10:00:00 SENDIL ity [facility] 2023-06-05 2023-06-05 Outpatient R BRANDY [facility] [id number] Univers 15:30:00 16:19:59 FAMILIA ity [facility] 2023-06-05 2023-06-05 Office [facility] 1.2.665.918 [id number] Univers 15:30:00 16:19:59 Visit Familia [facility] 350.1.13.10 it y of [facility] 4.2.7.2.686 Beau as RAVI?BLEA [id number] Mn chandrakant MOMIN 220 [facility] OFFICE [facility] 2023-06-05 2023-06-05 An/Syq 13 Nav/C2 Operator Lab, [facility] 1.2.840.1 14 [id number] Univers 10:15:00 12:30:29 Visit Chante Medel HEALTH 350.1.13.10 ity of [facility] 4.2.7.2.686 Beau as RAVI?BLEA [id number] Mn chandrakant MOMIN 353 [facility] OFFICE [facility] 2023-06-05 2023-06-05 Orders Doctor MICHELINE 1.2.840.114 [id number] Univers 00:00:00 00:00:00 Only Unassigned, CARLA 350.1.13.10 ity of [place] [facility] 4.2.7.2.686 Beau as [id number] [address] 2023-06-04 2023-06-04 Refill Landy [facility] 1.2.840.114 [id number] Univers 00:00:00 00:00:00 Simone HEALTH 350.1.13.10 it y of [facility] 4.2.7.2.686 Beau as RAVI?BLEA [phone] Mn chandrakant MOMIN [address] [place] MEDICAL OFFICE [facility] 2023-06-04 2023-06-04 Refill Lalitha [facility] 1.2.840.114 [id number] Univers 00:00:00 00:00:00 Sendil JessicaHBouchra [place] 350.1.13.10 ity of [place] 4.2.7.2.686 [place] [phone] Mn [facility] 059 [facility] 2023-06-04 2023-06-04 Refill Chante Medel [facility] 1.2.840.114 10 [id number] Univers 00:00:00 00:00:00 MULTISPEC 350.1.13.10 ity of [place].2.7.2.686 [place] C[place] [id number] [address] [facility]ES [facility]IC 2023-06-04 2023-06-04 Refill Qian [facility] 1.2.840.114 10 [id number] Univers 00:00:00 00:00:00 do Sheree K N HEALTH 350.1.13.10 ity of [place] 4.2.7.2.686 Beau as RAVI?BLEA [id number] [address] OFFICE BUILDING 2023-06-04 2023-06-04 Refill [facility] 1.2.840.114 [id number] Univers 00:00:00 00:00:00 Vicki Adal MULTISPEC 350.1.13.10 ity of [place].2.7.2.686 [place] [id number] [address] DIABETES CLINIC 2023-06-04 2023-06-04 Refill [facility] 1.2.840.114 [id number] Univers 00:00:00 00:00:00 Baeza A HEALTH 350.1.13.10 ity of [facility] 4.2.7.2.686 Beau as RAVI?BLEA [id number] [address] OFFICE BUILDING 2023-06-02 2023-06-02 Outpatient R LANDY [facility] [id number] Univers 15:30:00 15:47:07 SIMONE itlibrado of [facility] 2023-06-02 2023-06-02 Office [facility] 1.2.840.114 [id number] Univers 15:30:00 15:47:07 Visit Simone ALEJANDRO 350.1.13.10 it y of [place] 4.2.7.2.686 Beau as RAVI?BLEA [id number] [facility] 044 [facility] OFFICE [facility] 2023-05-29 2023-05-29 Telephone Chante Medel [facility] 1.2.840.114 [id number] Univers 00:00:00 00:00:00 MULTISPEC 350.1.13.10 ity of [place].2.7.2.686 [place] [id number] [facility] AND [place] [address] DI[facility]ES CLINIC 2023-05-29 2023-05-29 Case [facility] 1.2.840.114 [id number] Univers 00:00:00 00:00:00 Management Kristen NATO 350.1.13.10 ity of [place] 4.2.7.2.[place] [id number] [facility] 085 [facility] 2023-05-29 2023-05-29 Telephone [facility] 1.2.884.027 [id number] Univers 00:00:00 00:00:00 Shiwan NOETON 350.1.13.10 i ty of [place] 4.2.7.2.686 [place] [id number] [address] 2023-05-25 2023-05-25 An/Syq 13 Nav/C2 Operator Lab, Gurwinder - Dereck [facility] 1.2.840.1 14 [id number] Univers 10:15:00 10:30:00 Visit Simone Bill 350.1.13.10 ity of [place] 4.2.7.2.686 Beau as RAVI?BLEA [id number] Mn chandrakant MOMIN 353 [facility] OFFICE [facility] 2023-05-25 2023-05-25 Outpatient R LANDY [facility] [id number] Univers 10:15:00 10:15:00 SIMONE sultana of [facility] 2023-05-22 2023-05-22 Outpatient R LANDY [facility] [id number] Univers 15:30:00 15:30:00 SIMONE itlibrado of [facility] 2023-05-21 2023-05-21 Outpatient R [facility] [id number] Univers 09:00:00 09:00:00 ity of [facility] 2023-05-08 2023-05-08 Outpatient R ZOHREHMingo [facility] [id number] Univers 15:30:00 15:30:00 SIMONE itlibrado of [facility] 2023-05-07 2023-05-07 Chante Gan [facility] 1.2.840.114 10 [id number] Univers 00:00:00 00:00:00 MULTISPEC 350.1.13.10 ity of [place] 4.2.7.2.686 [facility] [id number] [facility] AND [place] [address] [facility] 2023-05-07 2023-05-07 Patient Doctor [facility] 1.2.840.114 [id number] Univers 00:00:00 00:00:00 Secure Msg Unassigned, HEALTH 350.1.13.10 ity of [place] 4.2.7.2.686 Beau as RAVI?BLEA [id number] Mn yovanyreena NASIR [address] MEDICAL OFFICE BUILDING 2023-05-04 2023-05-04 Outpatient R LANDY [facility] [id number] Univers 09:30:00 09:30:00 SIMONE sultana of [facility] 2023-05-01 2023-05-01 Outpatient R KRISTEN LIANG [facility] 10 [id number] Univers 10:18:45 23:59:00 KRISTEN LIANG i ty of [facility] 2023-05-01 2023-05-01 Hospital [facility] 1.2.840.114 [id number] Univers 10:18:45 23:59:00 Encounter Kristen [place] 350.1.13.10 ity of [place] 4.2.7.2.686 [facility] [id number] [facility] [address] 2023-05-01 2023-05-01 Office [facility] 1.2.840.114 [id number] Univers 09:00:00 09:55:05 Visit Kristen [place] 350.1.13.10 i ty [facility] 4.2.7.2.[place] [phone] Mn dical NAL 085 [facility] 2023-05-01 2023-05-01 Telephone Lalitha [facility] 1.2.089.021 [id number] Univers 00:00:00 00:00:00 Sendjeffery Alexandra [place] 350.1.13.10 ity of [place] 4.2.7.2.686 [place] [phone] Mn dical NAL 059 [facility] 2023-04-30 2023-04-30 Telephone [facility] 1.2.840.114 10 [id number] Univers 00:00:00 00:00:00 Familia [facility] 350.1.13.10 it y of [place] 4.2.7.2.686 Beau as RAVI?BLEA [phone] [facility] [address] MEDICAL OFFICE BUILDING 2023-04-24 2023-04-24 Refill Janessa-Dena [facility] 1.2.840.114 10 [id number] Univers 00:00:00 00:00:00 doSheree [facility] HEALTH 350.1.13.10 ity of [place] 4.2.7.2.686 Beau as RAVI?BLEA [id number] [facility] [address] MEDICAL OFFICE [facility] 2023-04-23 2023-04-23 Refill [facility] 1.2.840.114 [id number] Univers 00:00:00 00:00:00 Aryan Aguila MULTISPEC 350.1.13.10 ity of [facility] 4.2.7.2.686 [place] [id number] [address] DIABETES CLINIC 2023-04-16 2023-04-16 Outpatient R KRISTEN LIANG [facility] 10 [id number] Univers 11:30:00 11:30:00 KRISTEN LIANG i ty of [facility] 2023-04-09 2023-04-09 Refill Landy [facility] 1.2.840.114 [id number] Univers 00:00:00 00:00:00 Simone HEALTH 350.1.13.10 it y of [place] 4.2.7.2.686 Beau as RAVI?BLEA [id number] [address] OFFICE [facility] 2023-04-09 2023-04-09 Patient Jayson [facility] 1.2.840.114 [id number] Univers 00:00:00 00:00:00 Secure Msg Yens ALEJANDRO 350.1.13.10 ity of [place] 4.2.7.2.686 Beau as ARVI?BLEA [id number] [address] OFFICE [facility] 2023-04-09 2023-04-09 Refill Landy [facility] 1.2.840.114 [id number] Univers 00:00:00 00:00:00 Simone ALEJANDRO 350.1.13.10 it y of [facility] 4.2.7.2.686 Beau as RAVI?BLEA [id number] [address] OFFICE [facility] 2023-04-03 2023-04-03 Outpatient R LANDY [facility] [id number] Univers 10:08:42 23:59:00 SIMONE itlibrado of [facility] 2023-04-03 2023-04-03 Office [facility] 1.2.840.114 [id number] Univers 09:30:00 09:37:17 Visit Simone [facility] 350.1.13.10 it y of [facility] 4.2.7.2.686 Beau as RAVI?BLEA [id number] [address] OFFICE [facility] 2023-04-01 2023-04-01 Outpatient R LANDY [facility] [id number] Univers 14:00:00 14:00:00 SIMONE edsony of [facility] 2023-03-30 2023-03-30 Orders Doctor TOBIAS 1.2.840.114 [id number] Univers 00:00:00 00:00:00 Only Unassigned, CARLA 350.1.13.10 ity of [facility] 4.2.7.2.686 Beau as [id number] [address] 2023-03-26 2023-03-26 Outpatient R KRISTEN LIANG [facility] [id number] Univers 10:00:00 10:00:00 KRISTEN LIANG i ty of [facility] 2023-03-24 2023-03-24 Outpatient R LALITHA [facility] [id number] Univers 00:00:00 00:00:00 SENDIL ity [facility] 2023-03-13 2023-03-13 Chante Gan [facility] 1.2.840.114 10 [id number] Univers 00:00:00 00:00:00 MULTISPEC 350.1.13.10 ity of [facility] [place]2.[place] [id number] [facility] [place] [address] [facility] 2023-03-12 2023-03-12 RefYee Murillo 1..840.114 10 [id number] Univers 00:00:00 00:00:00 A CARLA 350.1.13.10 it y of [facility] 4.2.7.2.686 Beau as [id number] [facility] [address] 2023-03-11 2023-03-11 [facility] [id number] Univers 10:30:00 11:04:[address] [facility] 2023-03-11 2023-03-11 Office [facility] 1.2.840.114 [id number] Univers 10:30:00 11:04:34 Visit Sendil Ibrahima [place] 350.1.13.10 ity [facility] [place] [id number] Mn dical NAL 059 [facility] 2023-03-09 2023-03-09 Outpatient R LALITHA [facility] [id number] Univers 15:30:00 15:30:00 SENDIL ity [facility] 2023-03-02 2023-03-02 Telephone [facility] 1.2.330.970 [id number] Univers 00:00:00 00:00:00 Kristen D[place] 350.1.13.10 i ty [place] [id number] Mn dical NAL 085 [facility] 2023-02-18 2023-02-18 Outpatient R CHANTE MEDEL [facility] [id number] Univers 13:20:00 14:36:23 ity of [facility] 2023-02-18 2023-02-18 Office Gianfranco [facility] 1.2.840.114 [id number] Univers 13:20:00 14:36:23 Visit Aryan Price MULTISPEC 350.1.13 .10 [place] [id number] [address] [facility] 2023-02-16 2023-02-16 An/Syq 13 Nav/C2 Operator Lab, Gurwinder - Dereck [facility] 1.2.840.1 14 [id number] Univers 08:30:00 08:45:00 Visit Jj Pricefrancheska Aguila HEALTH 350.1.13.1 0 ity of [place] 4.2.7.2.686 Beau as RAVI?BLEA [phone] Mn chandrakant MOMIN 353 [facility] OFFICE [facility] 2023-02-16 2023-02-16 Out[facility] [id number] Univers 08:30:00 08:30:00 ARYAN ity o f [facility] 2023-02-16 2023-02-16 Telephone [facility] 1.2.840.114 [id number] Univers 00:00:00 00:00:00 Aryan Aguila MULTISPEC 350.1.13.10 [place] [id number] [address] [facility] 2023-02-13 2023-02-13 Office [facility] 1.2.840.114 [id number] Univers 09:00:00 09:15:00 Visit Anel Steele HEALTH 350.1.13.10 it y of [place] 4.2.7.2.686 Beau as RAVI?BLEA [id number] Mn chandrakant OCONNELL 198 [facility] OFFICE [facility] 2023-02-13 2023-02-13 Out[facility] [id number] Univers 09:00:00 09:00:00 ANEL ity of [facility] 2023-02-13 2023-02-13 An/Syq 13 Nav/C2 Operator Lab, Ang - Db [facility] 1.2.840.1 14 [id number] Univers 08:00:00 08:07:08 Visit Simone Bill HEALTH 350.1.13.10 ity of [place] 4.2.7.2.686 Beau as RAVI?BLEA [id number] Mn dical ANISHNASIR [address] MEDICAL OFFICE BUILDING 2023-02-13 2023-02-13 Patient Albert, [facility] 1.2.840.114 [id number] Univers 00:00:00 00:00:00 Secure Msg Aryan A MULTISPEC 350.1.13.10 ity of [place] 4.2.7.2.686 [facility] [phone] [facility] AND [address] DIABETES CLINIC 2023-02-12 2023-02-12 Patient Amaris [facility] 1.2.840.114 [id number] Univers 00:00:00 00:00:00 Secure [facility] 350.1.13.10 ity of [place] 4.2.7.2.686 [facility] s [place] [phone] [facility] [address] OFFICE BUILDING 2023-02-09 2023-02-09 Outpatient R KRISTEN LIANG [facility] 10 [id number] Univers 11:00:07 23:59:00 KRISTEN LIANG i ty of [facility] 2023-02-09 2023-02-09 Hospital Amaris [facility] 1.2.840.114 [id number] Univers 11:00:07 23:59:00 Encounter Kristen DUTTON 350.1.13.10 ity of [place] 4.2.7.2.686 [facility] [id number] [facility] [address] 2023-02-08 2023-02-08 Refgricelda [facility] 1.2.840.114 [id number] Univers 00:00:00 00:00:00 Lul Francheska HEALTH 350.1.13.10 ity of [place] 4.2.7.2.[address] [facility] [phone] [facility] PRIMARY & [address] SPECIALTY CARE 2023-02-03 2023-02-03 Pre Visit MICHELINE Gallagher 1.2.125.583 [id number] Univers 00:00:00 00:00:00 Outreach Amarilis AGUIRRE 350.1.13.10 ity of [facility] 4.2.7.2.686 Beau as [id number] [facility] [address] 2023-01-28 2023-01-28 Refill Qian [facility] 1.2.840.114 10 [id number] Univers 00:00:00 00:00:00 Sheree rush MULTISPEC 350.1.13.10 ity of [facility] 4.2.7.2.686 [facility] [id number] [facility] AND [address] DIABETES CLINIC 2023-01-27 2023-01-27 Outpatient R LANDY [facility] [id number] Univers 16:08:30 23:59:00 SIMONE sultana [facility] 2023-01-27 2023-01-27 An/Syq 13 Nav/C2 Operator Lab, [facility] 1.2.840.1 14 [id number] Univers 16:00:00 16:32:55 Visit Landy Simone Displair 350.1.13.10 ity of [place] 4.2.7.2.686 Beau as RAVI?BLEA [id number] [facility] [address] MEDICAL OFFICE BUILDING 2023-01-27 2023-01-27 Office Landy [facility] 1.2.840.114 [id number] Univers 15:30:00 16:06:39 Visit Simone HEALTH 350.1.13.10 it y of [place] 4.2.7.2.686 Beau as RAVI?BLEA [id number] [facility] [address] MEDICAL OFFICE BUILDING 2023-01-26 2023-01-26 Outpatient Johan LEVI [facility] [id number] Univers 16:15:00 17:19:21 LICHA sultana o f [facility] 2023-01-26 2023-01-26 Office Amita [facility] 1.2.840.114 [id number] Univers 16:15:00 17:19:21 Visit Licha CAICEDO 350.1.13.10 ity of [place] 4.2.7.2.686 [place] [id number] [facility] AND [place] [address] DIABETES CLINIC 2023-01-26 2023-01-26 Orders Doctor MICHELINE 1.2.840.114 [id number] Univers 00:00:00 00:00:00 Only Unassigned, CARLA 350.1.13.10 ity of [facility] 4.2.7.2.686 Beau as [id number] [facility] [address] 2023-01-23 2023-01-23 Patient Landy [facility] 1.2.840.114 [id number] Univers 00:00:00 00:00:00 Secure Msg Simone HEALTH 350.1.13.10 ity of [place] 4.2.7.2.686 Beau as RAVI?BLEA [phone] [address] MEDICAL OFFICE [facility] 2023-01-19 2023-01-19 Outpatient R LANDY [facility] [id number] Univers 15:30:00 15:30:[address] [facility] 2023-01-08 2023-01-08 Refill Landy [facility] 1.2.840.114 [id number] Univers 00:00:00 00:00:00 Simone HEALTH 350.1.13.10 it y of [place] 4.2.7.2.686 Beau as RAVI?BLEA [id number] [address] OFFICE [facility] 2023-01-02 2023-01-02 Office [facility] 1.2.840.114 [id number] Univers 09:00:00 09:30:00 Visit [facility] 350.1.13.10 it y of [facility] 4.2.7.2.686 Beau as RAVI?BLEA [id number] [facility] [address] MEDICAL OFFICE BUILDING 2023-01-02 2023-01-02 Outpatient R CHANTEL [facility] [id number] Univers 09:00:00 09:00:[address] [facility] 2022-12-29 2022-12-29 An/Syq 13 Nav/C2 Operator Lab, Ang - Dereck [facility] 1.2.840.1 14 [id number] Univers 08:00:00 09:00:46 Visit Dali, Vicki Adal HEALTH 350.1.13.10 ity of [place] 4.2.7.2.686 Beau as RAVI?BLEA [id number] [facility] [address] MEDICAL OFFICE [facility] 2022-12-29 2022-12-29 Outpatient R DALI [facility] [id number] Univers 08:00:00 08:00:00 VICKI ity of [facility] 2022-12-29 2022-12-29 Orders Doctor MICHELINE 1.2.840.114 [id number] Univers 00:00:00 00:00:00 Only Unassigned, CARLA 350.1.13.10 ity of [place] [facility] 4.2.7.2.686 Beau as [phone] [address] 2022-11-21 2022-11-21 Outpatient R [facility] [id number] Univers 09:00:00 09:00:00 ity of [facility] 2022-11-12 2022-11-12 Outpatient FERGUSON_ADRIEL [facility] 120 [id number] [place] 00:00:00 00:00:[place] [id number] [facility] 2022-11-10 2022-11-10 Patient Landy [facility] 1.2.840.114 [id number] Univers 00:00:00 00:00:00 Secure Msg Simone HEALTH 350.1.13.10 ity of [place] 4.2.7.2.686 Beau as RAVI?BLEA [phone] [facility] [address] MEDICAL OFFICE [facility] 2022-11-08 2022-11-08 Philip [facility] 1.2.840.114 [id number] Univers 00:00:00 00:00:00 Wondiful A HEALTH 350.1.13.10 ity of [place] 4.2.7.2.686 Beau as RAVI?BLEA [id number] [address] MEDICAL OFFICE [facility] 2022-11-07 2022-11-07 Philip [facility] 1.2.840.114 [id number] Univers 00:00:00 00:00:00 Wondiful A HEALTH 350.1.13.10 ity of [place] 4.2.7.2.686 Beau as RAVI?BLEA [id number] [address] OFFICE [facility] 2022-11-07 2022-11-07 Refill ZohrehmingoFOUR [facility] 1.2.840.114 [id number] Univers 00:00:00 00:00:00 Simone HEALTH 350.1.13.10 it y of [place] 4.2.7.2.686 Beau as RAVI?BLEA [id number] [address] OFFICE [facility] 2022-10-20 2022-10-20 Telephone [facility] 1.2.767.798 [id number] Univers 00:00:00 00:00:00 Kristen [facility] 350.1.13.10 i ty of [place] 4.2.7.2.686 [place] [id number] [address] 2022-10-15 2022-10-15 Case [facility] 1.2.840.114 [id number] Univers 00:00:00 00:00:00 Management Kristen [place] 350.1.13.10 ity of [place] 4.2.7.2.686 [place] [id number] [address] 2022-10-14 2022-10-14 An/Syq 13 Nav/C2 Operator Testing, [facility] Pulmonary Func tion UNIVERSIT 1.2.840.114 [id number] Univers 13:00:00 14:00:00 Visit Kristen Liang HEALTH 350.1.13.[address] [facility] 4.2.7.2.686 [place] [id number] [address] 2022-10-14 2022-10-14 Outpatient R KRISTEN LIANG [facility] 10 [id number] Univers 13:00:00 13:00:00 KRISTEN LIANG i ty of [facility] 2022-10-14 2022-10-14 Orders JONEL Liang 1.2.850.737 [id number] Univers 00:00:00 00:00:00 Only Shiwan Y HEALTH 350.1.13.[address] [facility] 4.2.7.2.686 [place] [id number] [facility] [address] 2022-09-19 2022-09-19 Outpatient R AMITA [facility] [id number] Univers 08:45:00 08:45:00 LICHA sultana o f [facility] 2022-09-16 2022-09-16 Outpatient R KRISTEN LIANG [facility] 10 [id number] Univers 09:30:00 10:00:28 KRISTEN LIANG i ty of [facility] 2022-09-16 2022-09-16 Office [facility] 1.2.840.114 [id number] Univers 09:30:00 10:00:28 Visit Kristen DUTTON 350.1.13.10 i ty of [place] 4.2.7.2.686 [place] [facility] [phone] Mn dicreena [facility]ENT[facility] [address] BUILDING 2022-09-04 2022-09-04 [facility] 1.2.840.114 [id number] Univers 00:00:00 00:00:00 Aryan A MULTISPEC 350.1.13.10 ity [facility] 4.2.7.2.686 [place] [id number] [facility] AND [place] [address] DIABETES CLINIC 2022-08-26 2022-08-26 Patient ZohrehmingoFOUR CORNERS [facility] 1.2.840.114 [id number] Univers 00:00:00 00:00:00 Secure [facility] 350.1.13.10 ity of [place] 4.2.7.2.686 Beau as RAVI?BLEA [id number] Mn dical EY [address] MEDICAL OFFICE BUILDING 2022-08-21 2022-08-21 Outpatient R ALBERT [facility] [id number] Univers 14:40:00 14:40:00 BAEZA ity o f [facility] 2022-08-21 2022-08-21 [facility] [id number] Univers 14:40:00 14:40:00 BAEZA kayy o f [facility] 2022-08-20 2022-08-20 Outpatient R ALBERT [facility] [id number] Univers 13:20:00 14:16:37 BAEZA itlibrado o slick [facility] 2022-08-20 2022-08-20 Office Vicki Mcnally [facility] 1.2.840 .114 [id number] Univers 13:20:00 14:16:37 Visit Aryan Price MULTISPEC 350.1.13 .10 ity of [place] 4[place]2.7.2.686 [place] [facility] [id number] [facility] AND [address] DIABETES CLINIC 2022-08-20 2022-08-20 Outpatient R ALBERT, [facility] [id number] Univers 13:20:00 13:20:00 BAEZA ity o slick [facility] 2022-08-18 2022-08-18 An/Syq 13 Nav/C2 Operator Lab, Ang - Db [facility] 1.2.840.1 14 [id number] Univers 09:00:00 09:15:00 Visit Sheree Bhakta N HEALTH 350.1.1 3.10 ity of [place] 4.2.7.2.686 Beau as RAVI?BLEA [id number] Mn chandrakant MOMIN [address] MEDICAL OFFICE BUILDING 2022-08-18 2022-08-18 Outpatient R JANESSACastroSTEVETRIN[facility] [id number] Univers 09:00:00 09:00:[address] [facility] 2022-08-18 2022-08-18 Outpatient R SOPHIAJULES-[facility] [id number] Univers 09:00:00 09:00:[address] [facility] 2022-08-04 2022-08-04 Refill Viktor [facility] 1.2.840.114 [id number] Univers 00:00:00 00:00:00 Wondiful A HEALTH 350.1.13.10 ity of [place] 4.2.7.2.686 Beau as RAVI?BLEA [id number] Mn chandrakant MOMIN [address] MEDICAL OFFICE BUILDING 2022-07-31 2022-07-31 Refill Qian [facility] 1.2.840.114 [id number] Univers 00:00:00 00:00:00 Sheree rush MULTISPEC 350.1.13.10 ity of [place].2.7.2.686 [place] C[place] [id number] [address] DIABETES CLINIC 2022-07-22 2022-07-22 An/Syq 13 Nav/C2 Operator Lab, Ang - Db [facility] 1.2.840.1 14 [id number] Univers 09:00:00 09:16:47 Visit LandyJeaneie FLAVIA 350.1.13.10 ity of [place] 4.2.7.2.686 Beau as RAVI?BLEA [id number] Mn chandrakant OCONNELL [address] MEDICAL OFFICE BUILDING 2022-07-22 2022-07-22 Outpatient R LANDY [facility] [id number] Univers 09:00:00 09:00:00 SIMONE kayy [facility] 2022-07-18 2022-07-18 Outpatient R LANDY [facility] [id number] Univers 15:30:00 15:53:41 SIMONE edsonlibrado [facility] 2022-07-18 2022-07-18 Office [facility] 1.2.840.114 [id number] Univers 15:30:00 15:53:41 Visit Simone [facility] 350.1.13.10 it y of [place] 4.2.7.2.686 Beau as RAVI?BLEA [id number] Mn chandrakant OCONNELL [address] MEDICAL OFFICE [facility] 2022-07-15 2022-07-15 Outpatient R LANDY [facility] [id number] Univers 15:30:00 15:30:00 SIMONE sultana [facility] 2022-07-11 2022-07-11 Nurse 1, Adc Infusion Nurse [facility] 1.2. 840.114 [id number] Univers 10:00:00 10:15:00 Visit Familia Nava 350.1.13.10 ity of [place] 4.2.7.2.686 [place] [id number] [address] 2022-07-11 2022-07-11 Outpatient [facility] [id number] Univers 10:00:00 10:00:[address] [facility] 2022-07-11 2022-07-11 Outpatient [facility] [id number] Univers 10:00:00 10:00:[address] [facility] 2022-07-10 2022-07-10 Patient [facility] 1.2.840.114 [id number] Univers 00:00:00 00:00:00 Secure Msg Ynes Malhotra HEALTH 350.1.13.10 ity of [place] 4.2.7.2.686 Beau as RAVI?BLEA [id number] Mn chandrakant OCONNELL [address] MEDICAL OFFICE [facility] 2022-07-09 2022-07-09 Outpatient R [facility] [id number] Univers 15:30:00 15:30:00 [facility] 2022-07-09 2022-07-09 Patient [facility] 1.2.840.114 [id number] Univers 00:00:00 00:00:00 Secure Msdee Elias HEALTH 350.1.13.10 ity of [place] 4.2.7.2.686 Beau as RAVI?BLEA [id number] Mn chandrakant OCONNELL [address] MEDICAL OFFICE [facility] 2022-07-06 2022-07-06 Refill [facility] 1.2.840.114 [id number] Univers 00:00:00 00:00:00 Aryan Aguila MULTISPEC 350.1.13.10 ity of [place]2.7.2.686 [place] [id number] [address] DIABETES CLINIC 2022-07-04 2022-07-04 Telephone [facility] 1.2.840.114 [id number] Univers 00:00:00 00:00:00 Familia Mcgill HEALTH 350.1.13.10 it y of [place] 4.2.7.2.686 Beau as RAVI?BLEA 327.2510140 Mn chandrakant OCONNELL [address] MEDICAL OFFICE BUILDING 2022-06-30 2022-06-30 Outpatient R [facility] [id number] Univers 15:30:00 15:30:00 SIMONE sultana of [facility] 2022-06-27 2022-06-27 Outpatient ART [facility] 120 [id number] [place] 00:00:00 00:00:00 [place] [id number] da [facility] Outreac h Program 2022-06-25 2022-06-25 Refill [facility] 1.2.840.114 [id number] Univers 00:00:00 00:00:00 Aryan Aguila MULTISPEC 350.1.13.10 ity of [place]2.7.2.686 [place] CENTER [id number] [facility] [address] DIABETES CLINIC 2022-06-25 2022-06-25 Refill Qian [facility] 1.2.840.114 [id number] Univers 00:00:00 00:00:00 Sheree rush HEALTH 350.1.13.10 ity of [place] 4.2.7.2.686 Beau as RAVI?BLEA [id number] [facility] [address] MEDICAL OFFICE BUILDING 2022-06-23 2022-06-23 Patient [facility] 1.2.360.413 [id number] Univers 00:00:00 00:00:00 Secure Msg Familia H MULTISPEC 350.1.13.10 ity of [place] 4.2.7.2.686 [place] CENTER [id number] [facility] [address] DIABETES CLINIC 2022-06-22 2022-06-22 Patient [facility] 1.2.407.850 [id number] Univers 00:00:00 00:00:00 Secure Msg Familia H HEALTH 350.1.13.10 ity of [place] 4.2.7.2.686 Beau as RAVI?BLEA [id number] [facility] [address] MEDICAL OFFICE BUILDING 2022-06-18 2022-06-18 Outpatient R [facility] [id number] Univers 13:09:09 23:59:00 FAMILIA sultana [facility] 2022-06-18 2022-06-18 [facility]ney[facility] 1.2.840.114 [id number] Univers 13:09:09 23:59:00 Encounter Familia DUTTON 350.1.13.10 ity [facility] 4.2.7.2.686 [facility] [id number] [facility] [address] 2022-06-12 2022-06-12 Outpatient R [facility] [id number] Univers 10:56:01 23:59:00 FAMILIA ity [facility] 2022-06-12 2022-06-12 [facility] 1.2.840.114 [id number] Univers 10:56:01 23:59:00 Encounter Familia DUTTON 350.1.13.10 ity [facility] 4.2.7.2.686 [facility] [id number] [address] 2022-06-11 2022-06-11 Outpatient R [facility] [id number] Univers 00:00:00 00:00:00 FAMILIA sultana [facility] 2022-06-09 2022-06-09 Patient [facility] 1.2.174.232 [id number] Univers 00:00:00 00:00:00 Secure Msg Familia Mcgill MULTISPEC 350.1.13.10 ity [place] 4.2.7.2.686 [facility] [id number] [address] DIABETES CLINIC 2022-06-06 2022-06-06 Outpatient [facility] [id number] Univers 00:00:00 00:00:00 FAMILIA sultana [facility] 2022-06-04 2022-06-04 An/Syq 13 Nav/C2 Operator Lab, Ang - Db [facility] 1.2.840.1 14 [id number] Univers 10:30:00 10:45:00 Visit Simone Bill 350.1.13.10 ity david [place] 4.2.7.2.686 Beau as RAVI?BLEA [id number] [address] MEDICAL OFFICE BUILDING 2022-06-04 2022-06-04 Outpatient R LANDY [facility] [id number] Univers 10:30:00 10:30:00 SIMONE sultana [facility] 2022-06-04 2022-06-04 Telephone [facility] 1.2.840.114 [id number] Univers 00:00:00 00:00:00 Familia [facility] 350.1.13.10 it y of [facility] 4.2.7.2.686 Beau as RAVI?BLEA [id number] [address] OFFICE [facility] 2022-05-30 2022-05-30 Outpatient R [facility] [id number] Univers 15:30:00 16:37:20 FAMILIA sultana [facility] 2022-05-30 2022-05-30 [facility] 1.2.810.936 [id number] Univers 15:30:00 16:37:20 Visit Familia [facility] 350.1.13.10 it y of [place] 4.2.7.2.686 Beau as RAVI?BLEA [id number] [address] OFFICE [facility] 2022-05-30 2022-05-30 Outpatient [facility] [id number] Univers 15:30:00 15:30:[address] [facility] 2022-05-19 2022-05-19 Outpatient R [facility] [id number] Univers 09:00:00 09:00:[address] [facility] 2022-05-19 2022-05-19 Outpatient R [facility] [id number] Univers 09:00:00 09:00:[address] [facility] 2022-05-09 2022-05-09 [facility] 1.2.840.114 [id number] Univers 00:00:00 00:00:00 Vikci Adal MULTISPEC 350.1.13.10 ity of [facility] 4.2.7.2.686 [place] [id number] [address] DIABETES CLINIC 2022-05-07 2022-05-07 Philip [facility] 1.2.840.114 [id number] Univers 00:00:00 00:00:00 Baeza A MULTISPEC 350.1.13.10 ity of I[place] 4.2.7.2.686 [facility] [id number] [facility] AND [address] DIABETES CLINIC 2022-05-05 2022-05-05 [facility] 1.2.840.114 [id number] Univers 00:00:00 00:00:00 Baeza A MULTISPEC 350.1.13.10 ity of [place] 4.2.7.2.686 [facility] [id number] [address] DIABETES CLINIC 2022-05-05 2022-05-05 Patient [facility] 1.2.840.114 [id number] Univers 00:00:00 00:00:00 Secure Msg Hurt MULTISPEC 350.1.13.10 ity of [place] 4.2.7.2.686 [facility] [place] [id number] [address] DIABETES CLINIC 2022-04-22 2022-04-22 Abstract [facility] 1.2.230.059 [id number] Univers 00:00:00 00:00:00 Baeza A MULTISPEC 350.1.13.10 ity of [place] 4.2.7.2.686 [facility] [place] [id number] [address] DIABETES CLINIC 2022-04-22 2022-04-22 [facility] [place] [facility] [place].2.840.114 [id number] Univers 00:00:00 00:00:00 Baeza A MULTISPEC 350.1.13.10 ity of [place] 4.2.7.2.686 [facility] [id number] [address] [facility] 2022-04-16 2022-04-16 Orders Doctor TOBIAS 1.2.840.114 [id number] Univers 00:00:00 00:00:00 Only Unassigned, CARLA 350.1.13.10 ity of [place] [facility] 4.2.7.2.686 Beau [id number] [address] 2022-04-14 2022-04-14 Refill Doctor [facility] 1.2.840.114 [id number] Univers 00:00:00 00:00:00 Unassigned, HEALTH 350.1.13.10 [place] of [place] 4.2.7.2.686 Beau as RAVI?BLEA [id number] [address] MEDICAL OFFICE BUILDING 2022-04-14 2022-04-14 Refill Janessa-Cru [facility] 1.2.840.114 [id number] Univers 00:00:00 00:00:00 Sheree rush MULTISPEC 350.1.13.10 [place] [id number] [facility] [address] [place] [facility] 2022-04-14 2022-04-14 [facility] 1.2.840.114 [id number] Univers 00:00:00 00:00:00 Vicki Adal MULTISPEC 350.1.13.10 [place] [id number] [facility] [address] [facility] 2022-04-14 2022-04-14 Ref[facility] 1.2.840.114 [id number] Univers 00:00:00 00:00:00 Pina DUTTON 350.1.13.10 [place].2.[place] [id number] [facility] NAL 059 [facility] 2022-04-14 2022-04-14 Refill [facility] 1.2.840.114 [id number] Univers 00:00:00 00:00:00 Baeza A HEALTH 350.1.13.10 ity of [place] 4.2.7.2.686 Beau as RAVI?BLEA [id number] [address] MEDICAL OFFICE BUILDING 2022-04-01 2022-04-01 Outpatient R AMITA [facility] [id number] Univers 11:00:00 11:00:00 LICHA kruger [facility] 2022-03-25 2022-03-25 Outpatient R LANDY [facility] [id number] Univers 16:00:00 16:33:45 SIMONE edsonlibrado [facility] 2022-03-25 2022-03-25 Office Landy [facility] 1.2.840.114 [id number] Univers 16:00:00 16:33:45 Visit Simone [facility] 350.1.13.10 it y of [facility] 4.2.7.2.686 Beau as RAVI?BLEA [id number] [address] MEDICAL OFFICE BUILDING 2022-03-24 2022-03-24 Outpatient R LANDY [facility] [id number] Univers 10:30:00 10:30:00 SIMONE edsonlibrado [facility] 2022-03-17 2022-03-17 Outpatient R CON [facility] [id number] Univers 10:00:00 10:00:00 NOREEN sultana [facility] 2022-03-04 2022-03-04 Patient Doctor MICHELINE 1.2.840.114 [id number] Univers 00:00:00 00:00:00 Secure Msg Unassigned, CARLA 350.1.13.10 [facility] 4.2.7.2.686 Beau as [phone] [address] 2022-02-27 2022-02-27 Outpatient R ALBERT [facility] [id number] Univers 10:40:00 12:05:33 ARYAN sultana o f [facility] 2022-02-27 2022-02-27 Office Vicki Mcnally [facility] 1.2.840 .114 [id number] Univers 10:40:00 12:05:33 Visit Aryan Price MULTISPEC 350.1.13 .10 ity of [facility] 4.2.7.2.686 [place] [facility] [phone] [facility] AND [address] DIABETES CLINIC 2022-02-24 2022-02-24 An/Syq 13 Nav/C2 Operator Lab, Ang - Db [facility] 1.2.840.1 14 [id number] Univers 09:15:00 09:30:00 Visit Simone Bill 350.1.13.10 ity of [place] 4.2.7.2.686 Beau as RAVI?BLEA [phone] Mn chandrakant MOMIN [address] [place] MEDICAL OFFICE BUILDING 2022-02-24 2022-02-24 [facility] [id number] Univers 09:15:00 09:15:00 SIMONE ity of [facility] 2022-02-13 2022-02-13 Outpatient [facility] [id number] Univers 14:30:00 15:52:33 WONDIFUL ity o f [facility] 2022-02-13 2022-02-13 Office [facility] 1.2.840.114 [id number] Univers 14:30:00 15:52:33 Visit Wonjacquelinful A HEALTH 350.1.13.10 ity of [facility] 4.2.7.2.686 Beau as RAVI?BLEA [phone] [facility] 044 [facility] OFFICE BUILDING 2022-02-13 2022-02-13 Outpatient R ALBERT [facility] [id number] Univers 10:00:00 10:00:00 BAEZA ity o f [facility] 2022-02-05 2022-02-05 Orders Doctor MICHELINE 1.2.840.114 [id number] Univers 00:00:00 00:00:00 Only Unassigned, CARLA 350.1.13.10 ity of [place] [facility] 4.2.7.2.686 Beau as [phone] [address] 2022-01-29 2022-01-29 Refill [facility] 1.2.840.114 [id number] Univers 00:00:00 00:00:00 Wondiful A HEALTH 350.1.13.10 ity of [place] 4.2.7.2.686 Beau as PROFESSIO [phone] [facility] [address] [place] OFFICE BUILDING ONE 2022-01-28 2022-01-28 Transition JAYLIN Kessler 1.2.840.114 [id number] Univers 00:00:00 00:00:00 of Care Coral Harper HOOKS 350.1.13.10 i ty of [place]2.7.2.[place] [id number] [facility] [address] 2022-01-25 2022-01-27 Outpatient U EDWIGE [facility] JEIMY [id number] Univers 19:06:00 15:40:00 SHIKHA ity [facility] 2022-01-25 2022-01-27 [facility] Ayesha Brandon Mingo [place] 1.2.84 0.114 [id number] Univers 19:06:00 15:40:00 Encounter Shikha Gibbons 350.1 .13.10 ity [facility] 4.2.7.2.686 [place] [id number] [facility] [address] 2022-01-27 2022-01-27 Outpatient [facility] [id number] Univers 13:30:00 13:30:[address] [facility] 2022-01-15 2022-01-15 [facility] [id number] Univers 13:00:51 23:59:[address] [facility] 2022-01-15 2022-01-15 [facility] 1.2.840.114 [id number] Univers 13:00:51 23:59:00 Encounter Brenda Fraser SPECIALTY 350.1.13.10 ity of [place]2.7.2.[place] C[place] AT [phone] Mn chandrakant PATEL 809 [facility] 2022-01-15 2022-01-15 Office [facility] 1.2.840.114 [id number] Univers 12:40:00 16:30:10 Visit Brenda Fraser SPECIALTY 350.1.13.10 ity of [place].2.[place] C[place] AT [phone] Mn chandrakant PATEL 198 [facility] 2022-01-15 2022-01-15 Outpatient [facility] [id number] Univers 12:40:00 16:30:[address] [facility] 2022-01-15 2022-01-15 Outpatient Johan [facility] [id number] Univers 12:40:00 12:40:[address] [facility] 2022-01-15 2022-01-15 Outpatient R RIMA [facility] [id number] Univers 12:40:00 12:40:[address] [facility] 2022-01-13 2022-01-13 Office [facility] 1.2.840.114 [id number] Univers 10:00:00 10:15:00 Visit Lul ALEJANDRO 350.1.13.10 ity of [place] 4.2.7.2.686 [facility] [phone] [facility] PRIMARY & [facility] Branch SPECIALTY CARE 2022-01-13 2022-01-13 Outpatient R RADHA [facility] [id number] Univers 10:00:00 10:00:00 LUL edsonlibrado [facility] 2022-01-10 2022-01-10 Outpatient R LALITHA [facility] [id number] Univers 09:00:00 09:00:[address] [facility] 2022-01-07 2022-01-07 Outpatient R LALITHA [facility] [id number] Univers 09:00:00 09:00:[address] [facility] 2021-12-31 2021-12-31 Outpatient R VIKTOR [facility] [id number] Univers 10:00:00 10:12:52 WONDIFUL ity o f [facility] 2021-12-31 2021-12-31 Nurse Nurse, Gurwinder Harden [facility] 1.2.840.114 [id number] Univers 10:00:00 10:12:52 Visit Dodie Hoang HEALTH 350.1.13.1 0 ity of [place] 4.2.7.2.686 Beau as RAVI?BLEA [phone] Mn chandrakant MOMIN [address] [place] [address] MEDICAL OFFICE BUILDING 2021-12-31 2021-12-31 Philip Mcnally [facility] 1.2.840.114 [id number] Univers 00:00:00 00:00:00 Vicki Adal MULTISPEC 350.1.13.10 ity of [facility] 4.2.7.2.686 [facility] [phone] [facility] AND BLOCK [address] DIABETES CLINIC 2021-12-31 2021-12-31 Refill [facility] 1.2.840.114 [id number] Univers 00:00:00 00:00:00 Wondiful A HEALTH 350.1.13.10 ity of [place] 4.2.7.2.686 Beau as PROFESSIO [phone] [facility] [address] [place] OFFICE BUILDING ONE 2021-12-28 2021-12-28 Patient Doctor MICHELINE 1.2.840.114 [id number] Univers 00:00:00 00:00:00 Secure Msg Unassigned, CARLA 350.1.13.10 ity of [facility] 4.2.7.2.686 Beau as [phone] [facility] [address] 2021-12-24 2021-12-24 Outpatient Joh[facility] [id number] Univers 13:15:00 13:15:00 WONDIFUL ity o f [facility] 2021-12-24 2021-12-24 An/Syq 13 Nav/C2 Operator 2, Adc Lab [facility] 1.2.840.114 [id number] Univers 13:15:00 13:15:00 Visit Dodie Hoang 350.1.13. 10 [facility] 4.2.7.2.[place] PROFESS[place] [phone] [facility] 353 [facility] 2021-12-24 2021-12-24 Office [facility] 1.2.840.114 [id number] Univers 11:30:00 12:35:03 Visit Wondiful A HEALTH 350.1.13.10 ity of [place] 4.2.7.2.686 Beau as RAVI?BLEA [phone] Mn chandrakant MOMIN [address] [place] MEDICAL OFFICE BUILDING 2021-12-24 2021-12-24 Outpatient Johan HOANG [facility] [id number] Univers 11:30:00 12:35:03 WONDIFUL ity o f [facility] 2021-12-23 2021-12-23 Telephone Lalitha [facility] 1.2.376.294 [id number] Univers 00:00:00 00:00:00 Pina LIUTON 350.1.13.10 ity [facility] 4.2.7.2.[place] PROFESS[place] [phone] Mn dical [facility]9 [facility] 2021-12-18 2021-12-18 Outpatient R VIKTOR [facility] [id number] Univers 08:15:00 08:15:00 WONDIFUL ity o f [facility] 2021-12-17 2021-12-17 Nurse 1, Adc Infusion Nurse [facility] 1.2. 840.114 [id number] Univers 13:00:00 13:15:00 Visit Familia Nava 350.1.13.10 ity of [place] 4.2.7.2.686 [place] SURGICAL [phone] [address] 2021-12-17 2021-12-17 Outpatient R BRANDY [facility] [id number] Univers 13:00:00 13:00:00 FAMILIA sultana [facility] 2021-12-17 2021-12-17 Orders Doctor TOBIAS 1.2.840.114 [id number] Univers 00:00:00 00:00:00 Only Unassigned, CARLA 350.1.13.10 [facility] 4.2.7.2.686 Beau as [phone] [address] 2021-12-16 2021-12-16 Outpatient R VIKTOR [facility] [id number] Univers 11:30:00 11:30:00 WONDIFUL ity o f [facility] 2021-12-12 2021-12-12 Outpatient R VIKTOR [facility] [id number] Univers 16:15:00 16:15:00 WONDIFUL ity o f [facility] 2021-12-12 2021-12-12 Outpatient R HIMA [facility] [id number] Univers 09:30:00 09:30:00 BRENDA sultana [facility] 2021-12-12 2021-12-12 An/Syq 13 Nav/C2 Operator 2, Adc Lab [facility] 1.2.840.114 [id number] Univers 09:30:00 09:30:00 Visit Brenda Rabago 350.1.1 3.10 ity of [place].2.7.2.[place] [phone] [facility] 353 [facility] 2021-12-05 2021-12-05 Patient Doty [facility] 1.2.840.114 [id number] Univers 00:00:00 00:00:00 Secure Msg Pina Alexandra [place] 350.1.13.10 ity of [facility] 4.2.7.2.[place] [phone] [facility] 059 [facility] 2021-11-29 2021-11-29 Outpatient [facility] [id number] Univers 09:30:00 09:30:00 WONDIFUL ity o f [facility] 2021-11-04 2021-11-04 Telephone [facility] 1.2.840.114 [id number] Univers 00:00:00 00:00:00 Wondiful A HEALTH 350.1.13.10 ity of [place] 4.2.7.2.686 Beau as PROFESSIO [phone] [facility] [address] [place] OFFICE [facility] ONE 2021-10-23 2021-10-23 Refgricelda Laughlin [facility] 1.2.840.114 [id number] Univers 00:00:00 00:00:00 Sheree rush MULTISPEC 350.1.13.10 ity of [place] 4.2.7.2.686 [place] CENTER [phone] [address] DIABETES CLINIC 2021-10-18 2021-10-18 Refgricelda [facility] 1.2.840.114 [id number] Univers 00:00:00 00:00:00 Wondiful A HEALTH 350.1.13.10 ity of [place] 4.2.7.2.686 Beau as PROFESSIO [phone] [facility] [address] [place] OFFICE BUILDING ONE 2021-10-14 2021-10-14 Refgricelda [facility] 1.2.840.114 [id number] Univers 00:00:00 00:00:00 Wondiful A HEALTH 350.1.13.10 ity of [place] 4.2.7.2.686 Beau as RAVI?BLEA [phone] [address] MEDICAL OFFICE BUILDING 2021-10-10 2021-10-10 Refgricelda Joanne [facility] 1.2.840.114 [id number] Univers 00:00:00 00:00:00 Eduard E PRIMARY 350.1.13.10 i ty of C[place] 4.2.7.2.686 [place] PAVJESUSON [phone] [address] 2021-10-10 2021-10-10 Patient [facility] 1.2.840.114 [id number] Univers 00:00:00 00:00:00 Secure Msg Wondiful A HEALTH 350.1.13.10 ity of [place] 4.2.7.2.686 Beau as RAVI?BLEA [phone] [address] OFFICE BUILDING 2021-10-03 2021-10-03 Patient Doctor MICHELINE 1.2.840.114 [id number] Univers 00:00:00 00:00:00 Secure Msg Unassigned, CARLA 350.1.13.10 ity of [place] [facility] 4.2.7.2.686 Beau as [phone] [facility] [address] 2021-10-02 2021-10-02 Refill [facility] 1.2.840.114 [id number] Univers 00:00:00 00:00:00 Wondiful A HEALTH 350.1.13.10 ity of [place] 4.2.7.2.686 Beau as PROFESSIO [phone] [address] OFFICE BUILDING ONE 2021-10-01 2021-10-01 Refill JanessaDena [facility] 1.2.840.114 [id number] Univers 00:00:00 00:00:00 Sheree rush MULTISPEC 350.1.13.10 ity [facility] 4.2.7.2.[place] [phone] [facility] AND [address] DIABETES CLINIC 2021-09-10 2021-09-10 Outpatient R LALITHA [facility] [id number] Univers 10:00:00 10:00:00 SENDIL ity of [facility] 2021-09-04 2021-09-04 Refill [facility] 1.2.840.114 [id number] Univers 00:00:00 00:00:00 Aryan Aguila MULTISPEC 350.1.13.10 ity of [place] 4.2.7.2.[place] CENTER [phone] [facility] AND [address] DIABETES CLINIC 2021-08-30 2021-08-30 Outpatient R VIKTOR [facility] [id number] Univers 08:00:00 08:00:00 WONDIFUL ity o f [facility] 2021-08-30 2021-08-30 [facility] 1.2.840.114 [id number] Univers 00:00:00 00:00:00 Eduard E PRIMARY 350.1.13.10 i ty of C[place] 4.2.7.2.686 [place] [id number] Mn dic[address] 2021-08-23 2021-08-23 Pre Visit Viktor [facility] 1.2.840.114 [id number] Univers 00:00:00 00:00:00 Outreach Wondiful A Health 350.1.13.10 ity of [place] 4.2.7.2.686 Beau as Professio [phone] [address] Office Building One 2021-08-22 2021-08-22 Outpatient Johan DOTY [facility] [id number] Univers 14:30:00 14:30:00 SENDIL ity [facility] 2021-08-19 2021-08-19 Outpatient Johan DOTY [facility] [id number] Univers 10:00:00 10:00:00 SENDIL ity [facility] 2021-08-15 2021-08-15 Office Vicki Mcnally [facility] 1.2.840 .114 [id number] Univers 09:56:04 11:47:05 Visit Aryan Price MULTISPEC 350.1.13 .10 ity of [place] 4.2.7.2.686 [place] C[place] [phone] [address] DIABETES CLINIC 2021-08-15 2021-08-15 Outpatient R ALBERT [facility] [id number] Univers 10:00:00 10:00:00 ARYAN ity o f [facility] 2021-08-15 2021-08-15 Patient Doctor [facility] 1.2.840.114 [id number] Univers 00:00:00 00:00:00 Secure Msg Unassigned, [place] 350.1.13.10 ity of [place] 4.2.7.2.686 [place] PROFESS[place] [phone] Mn dical NAL 059 [facility] 2021-08-12 2021-08-12 Hospital Lalitha [facility] 1.2.840.114 [id number] Univers 08:33:19 23:59:00 Encounter Pina Liuton 350.1.13.10 ity of [place] 4.2.7.2.686 [place] Professio [phone] Mn dical nal 843 [facility] 2021-08-12 2021-08-12 An/Syq 13 Nav/C2 Operator 2, Adc Lab [facility] 1.2.840.114 [id number] Univers 10:17:20 10:32:20 Visit Jj Priced Mingo [place] 350.1.13. 10 ity of [place] 4.2.7.2.686 [place] Professio [phone] Mn dical nal 353 [facility] 2021-08-12 2021-08-12 An/Syq 13 Nav/C2 Operator 2, Adc Lab [facility] 1.2.840.114 [id number] Univers 10:17:20 10:32:20 Visit Aryan Price [place] 350.1.13. 10 ity of [place] 4.2.7.2.686 [place] Professio [phone] Mn dical nal 353 [facility] 2021-08-12 2021-08-12 Outpatient R LALITHA [facility] [id number] Univers 09:00:00 09:00:00 SENDIL ity of [facility] 2021-07-30 2021-07-30 Outpatient R RADHA [facility] [id number] Univers 10:15:00 10:15:00 LUL sultana [facility] 2021-07-24 2021-07-24 [facility] 1.2.840.114 [id number] Univers 00:00:00 00:00:00 Baeza A MULTISPEC 350.1.13.10 ity of [place] 4.2.7.2.686 [place] [id number] [address] DIABETES CLINIC 2021-07-24 2021-07-24 Philip [facility] 1.2.840.114 [id number] Univers 00:00:00 00:00:00 Baeza A MULTISPEC 350.1.13.10 ity [facility] 4.2.7.2.686 [facility] s [place] [phone] [address] DIABETES CLINIC 2021-07-18 2021-07-18 Outpatient R JUAN C [facility] [id number] Univers 09:30:00 09:30:[address] [facility] 2021-07-08 2021-07-08 Outpatient [facility] [id number] Univers 14:30:00 15:08:[address] [facility] 2021-07-08 2021-07-08 Office [facility] 1.2.840.114 [id number] Univers 14:24:11 15:08:47 Visit Pina Dutton 350.1.13.10 ity [place] 4.2.7.2.686 [facility] [phone] [address] 2021-07-08 2021-07-08 Outpatient R [facility] [id number] Univers 14:30:00 14:30:00 [facility] 2021-06-19 2021-06-19 Patient Doctor MICHELINE 1.2.840.114 [id number] Univers 00:00:00 00:00:00 Secure Msg Unassigned, CARLA 350.1.13.10 ity of [place] [facility] 4.2.7.2.686 [facility] [phone] [address] 2021-06-13 2021-06-13 Office [facility] 1.2.538.855 [id number] Univers 13:47:47 15:37:09 Visit David [place] 350.1.13.10 i ty of [place] 4.2.7.2.686 [place] [facility] [phone] Mn dical nal [address] [facility] 2021-06-13 2021-06-13 Nurse 1, Adc Infusion Nurse [facility] 1.2. 840.114 [id number] Univers 12:51:30 13:06:30 Visit Familia Nava 350.1.13.10 ity of [place] 4.2.7.2.686 [place] [phone] [facility] [address] [place] 2021-06-13 2021-06-13 Outpatient R BRANDY [facility] [id number] Univers 13:00:00 13:00:00 FAMILIA sultana of [facility] 2021-06-13 2021-06-13 Orders Doctor MICHELINE 1.2.840.114 [id number] Univers 00:00:00 00:00:00 Only Unassigned, CARLA 350.1.13.10 ity of [place] [facility] 4.2.7.2.686 Beau as [id number] [facility] [address] 2021-06-12 2021-06-12 Hospital Amaris [facility] 1.2.840.114 [id number] Univers 08:53:45 23:59:00 Encounter Kristen [place] 350.1.13.10 ity of [place] 4.2.7.2.686 [place] [phone] [facility] [address] 2021-06-12 2021-06-12 Outpatient R KRISTEN LIANG [facility] [id number] Univers 00:00:00 00:00:00 KRISTEN LIANG i ty of [facility] 2021-06-12 2021-06-12 Refill Albert [facility] 1.2.840.114 [id number] Univers 00:00:00 00:00:00 Aryan Aguila [facility] 350.1.13.10 ity of [place] 4.2.7.2.686 Beau as Profhector [phone] Mn dical [facility] [address] Office Building One 2021-06-10 2021-06-10 Hospital [facility] 1.2.800.770 [id number] Univers 10:40:00 23:59:00 Encounter Victor Manuelnany [place] 350.1.13.10 ity of [place] 4.2.7.2.686 [place] [phone] [facility] [address] 2021-06-10 2021-06-10 Outpatient [facility] [id number] Univers 00:00:00 00:00:00 WONDIFUL ity o f [facility] 2021-06-06 2021-06-06 Refill Qian [facility] 1.2.840.114 [id number] Univers 00:00:00 00:00:00 Sehree rush MULTISPEC 350.1.13.10 ity of IALTY 4.2.7.2.686 [facility] [place] [phone] [address] DIABETES CLINIC 2021-06-06 2021-06-06 Refill [facility] 1.2.840.114 [id number] Univers 00:00:00 00:00:00 Aryan Aguila MULTISPEC 350.1.13.10 ity of I[place] 4.2.7.2.686 [facility] [place] [id number] [address] DIABETES CLINIC 2021-06-04 2021-06-04 Patient Doctor MICHELINE 1.2.840.114 [id number] Univers 00:00:00 00:00:00 Secure Msg Unassigned, CARLA 350.1.13.10 ity of [place] [facility] 4.2.7.2.686 Beau as [phone] [facility] [address] 2021-06-03 2021-06-03 [facility] 1.2.840.114 [id number] Univers 09:00:00 23:59:00 Encounter Familia [place] 350.1.13.10 ity of [place]2.7.2.686 [place] [phone] [address] 2021-06-03 2021-06-03 Outpatient R KRISTEN LIANG [facility] [id number] Univers 00:00:00 00:00:00 KRISTEN LIANG i ty [facility] 2021-05-30 2021-05-30 An/Syq 13 Nav/C2 Operator Lab, Adc Fam Pob I [facility] 1.2. 840.114 [id number] Univers 09:10:18 09:30:18 Visit Dodie Hoang [facility] Health 350.1.13.1 0 ity of [place] 4.2.7.2.686 Beau as Professio [phone] [facility] 044 [facility] 2021-05-30 2021-05-30 Office [facility] 1.2.840.114 [id number] Univers 08:29:55 09:12:13 Visit Wondiful A Health 350.1.13.10 ity of [place] 4.2.7.2.686 Beau as Professio [id number] [facility] 044 [facility] 2021-05-30 2021-05-30 Outpatient [facility] [id number] Univers 08:30:00 08:30:00 WONDIFUL ity o f [facility] 2021-05-26 2021-05-26 Refill [facility] 1.2.840.114 [id number] Univers 00:00:00 00:00:00 Wondiful A Health 350.1.13.10 ity of [place] 4.2.7.2.686 Beau as Professio [phone] [facility] 044 [facility] 2021-05-24 2021-05-24 Office [facility] 1.2.045.232 [id number] Univers 14:31:56 15:59:05 Visit Familia Dutton 350.1.13.10 i ty of [place] 4[place]2.[place].2.[place] Profess[place] [phone] [facility] 220 [facility] 2021-05-24 2021-05-24 Outpatient [facility] [id number] Univers 14:30:00 14:30:00 FAMILIA sultana of [facility] 2021-05-24 2021-05-24 Orders Doctor MICHELINE 1.2.840.114 [id number] Univers 00:00:00 00:00:00 Only Unassigned, CARLA 350.1.13.10 ity of [place] [facility] 4.2.7.2.686 Beau as [phone] [facility] [address] 2021-05-09 2021-05-09 Telephone Gamilla-Cru [facility] 1.2.840.114 [id number] Univers 00:00:00 00:00:00 Sheree rush SPECIALTY 350.1.13.10 ity of [place] 4[place]2.7.2.686 [place] CENTER AT [phone] Mn chandrakant PATEL [address] [place] 2021-05-05 2021-05-05 Refill [facility] 1.2.840.114 [id number] Univers 00:00:00 00:00:00 Wondiful A Health 350.1.13.10 ity of [place] 4.2.7.2.686 Beau as Professio [phone] Mn chandrakant gentile [address] Office Building One 2021-05-03 2021-05-03 Refill [facility] 1.2.840.114 [id number] Univers 00:00:00 00:00:00 Aryan Aguila MULTISPEC 350.1.13.10 ity of [place].2.686 [place] C[place] [phone] [address] DIABETES CLINIC 2021-05-02 2021-05-02 Patient Dali [facility] 1.2.840.114 [id number] Univers 00:00:00 00:00:00 Secure Msg Vicki Adal MULTISPEC 350.1.13.10 [place] [id number] [address] [facility] 2021-05-01 2021-05-01 Hospital RONNIE Richter 1.2.840.114 [id number] Univers 11:42:00 23:59:00 Encounter Brenda Mcgill 350.1.13.10 ity of BUILDING 4.2.7.2.686 [place] [phone] [place] [address] [address] 2021-05-01 2021-05-01 [facility] ACO [id number] Univers 00:00:00 00:00:00 BRENDA ity of [facility] 2021-04-29 2021-04-29 Telephone [facility] 1.2.840.114 [id number] Univers 00:00:00 00:00:00 Aryan A MULTISPEC 350.1.13.10 [place] [id number] [address] [facility] 2021-04-24 2021-04-24 Telephone [facility] 1.2.840.114 [id number] Univers 00:00:00 00:00:00 Aryan A MULTISPEC 350.1.13.10 [place] [id number] [address] [facility] 2021-04-09 2021-04-09 [facility] 1.2.840.114 [id number] Univers 00:00:00 00:00:00 Management Aryan Aguila MULTISPEC 350.1.13.10 [place] [id number] [address] [facility] 2021-04-08 2021-04-08 [facility] 1.2.840.114 [id number] Univers 00:00:00 00:00:00 Sheree rush MULTISPEC 350.1.13.10 [place] [id number] [address] [facility] 2021-04-03 2021-04-03 [facility] 1.2.510.982 [id number] Univers 15:20:00 23:59:00 Encounter Aryan Aguila CARLA 350.1.13.10 ity of [facility] 4.2.7.2.686 [place] as [id number] [facility] [address] 2021-04-03 2021-04-03 [facility]patient [facility] ACO [id number] Univers 00:00:00 00:00:00 ARYAN ity o f [facility] 2021-03-31 2021-03-31 [facility] 1.2.840.114 [id number] Univers 00:00:00 00:00:00 Aryan Aguila MULTISPEC 350.1.13.10 [place] [id number] [facility] [place] [address] [facility] 2021-03-07 2021-03-07 An/Syq 13 Nav/C2 Operator Pcp-Lab [facility] 1.2.840.114 [id number] Univers 10:40:51 10:55:51 Visit Eduard Rubio PRIMARY 350.1.13.10 [place] [id number] Mn dical [address] [place] 2021-03-07 2021-03-07 Office Vicenta Skelton [facility] 1.2.8 40.114 [id number] Univers 09:47:04 10:41:16 Visit Eduard Rubio PRIMARY 350.1.13.10 [place] [id number] Mn dical [address] [place] 2021-03-07 2021-03-07 Outpatient R [facility] [id number] Univers 10:30:00 10:30:00 EDUARD sultana of [facility] 2021-03-07 2021-03-07 [facility] 1.2.840.114 [id number] Univers 00:00:00 00:00:00 Management Eduard E PRIMARY 350.1.13.10 ity of [place].2.[place] [phone] Mn dical 044 [place] 2021-03-04 2021-03-04 An/Syq 13 Nav/C2 Operator Lab, Adc Fam Pob I [facility] 1.2. 840.114 [id number] Univers 09:06:07 09:26:07 Visit Casey, Wondiful A Health 350.1.13.1 0 ity of [place] 4.2.7.2.686 Beau as Professio [phone] Mn yovanyreena gentile [address] [place] [address] One 2021-03-04 2021-03-04 Outpatient Johan HOANG [facility] [id number] Univers 09:00:00 09:00:00 WONDIFUL ity o f [facility] 2021-02-24 2021-02-24 Refgricelda Price [facility] 1.2.840.114 [id number] Univers 00:00:00 00:00:00 Baeza A MULTISPEC 350.1.13.10 ity of [place].2.[place].2.[place] [phone] [address] DIABETES CLINIC 2021-02-21 2021-02-21 Refill [facility] 1.2.840.114 [id number] Univers 00:00:00 00:00:00 Wondiful A Health 350.1.13.10 ity of [place] 4.2.7.2.686 Beau as Professio [phone] Mn yovanyreena Perez [place] Office [facility] One 2021-02-14 2021-02-14 Telephone Addy Pichardo [facility] 1.2.840.114 [id number] Univers 00:00:00 00:00:00 [place] SPECIALTY 350.1.13.10 ity of C[place] 4.2.[place].2.[place] AT [phone] Mn yovanyreena PATEL 072 [facility] 2021-02-11 2021-02-11 Refill [facility] 1.2.840.114 [id number] Univers 00:00:00 00:00:00 Wondiful A Health 350.1.13.10 ity of [place] 4.2.7.2.686 Beau as Professio [phone] Mn yovanyreena vonda [address] [place] [address] One 2021-02-09 2021-02-09 Outpatient [facility] [id number] Univers 09:45:00 09:45:00 ity of [facility] 2021-02-09 2021-02-09 Refgricelda Mcnally [facility] 1.2.840.114 [id number] Univers 00:00:00 00:00:00 Vicki Adal MULTISPEC 350.1.13.10 ity of [place].2.7.2.[place] [phone] [facility] [address] [place] DIABETES CLINIC 2021-02-08 2021-02-08 Refgricelda [facility] 1.2.840.114 [id number] Univers 00:00:00 00:00:00 Wondiful A Health 350.1.13.10 ity of [place] 4.2.7.2.686 [place] as Professio [id number] [address] Office [facility] One 2021-02-08 2021-02-08 Refgricelda [facility] 1.2.840.114 [id number] Univers 00:00:00 00:00:00 Wondiful A Health 350.1.13.10 ity of [place] 4.2.7.2.686 Beau as Professio [phone] [address] One 2021-02-05 2021-02-05 Outpatient [facility] [id number] Univers 10:30:00 10:30:00 EDUARD itlibrado of [facility] 2021-02-01 2021-02-01 Anupam Laughlin [facility] 1.2.840.114 [id number] Univers 00:00:00 00:00:00 Management Sheree rush MULTISPEC 350.1.13.10 ity of [place] 4.2.7.2.[place] [phone] [facility] [address] [place] DIABET[facility]INIC 2021-01-23 2021-01-23 Philip [facility] 1.2.840.114 [id number] Univers 00:00:00 00:00:00 Wondiful A Health 350.1.13.10 ity of [place] 4.2.7.2.686 Beau as Professio [phone] [address] One 2021-01-23 2021-01-23 Philip Price [facility] 1.2.840.114 [id number] Univers 00:00:00 00:00:00 Ayran Aguila MULTISPEC 350.1.13.10 ity of IALTY 4.2.7.2.686 [facility] [place] [phone] [facility] [address] [place] DIAB[facility]INIC 2021-01-22 2021-01-22 [facility] [id number] Univers 15:30:00 15:30:[address] [facility] 2021-01-19 2021-01-19 Outpatient [facility] [id number] Univers 09:45:00 09:45:00 ity of [facility] 2021-01-11 2021-01-11 Patient Doctor [facility] 1.2.840.114 [id number] Univers 00:00:00 00:00:00 Secure Msg Unassigned, MULTISPEC 350.1.13.10 ity of [place] IALTY 4.2.7.2.686 [facility] s [place] [phone] [facility] [address] [place] DIABET[facility]INIC 2021-01-09 2021-01-09 Outpatient R [facility] [id number] Univers 15:30:00 15:30:00 [facility] 2021-01-04 2021-01-04 Outpatient R KRISTEN LIANG [facility] 10 [id number] Univers 00:00:00 00:00:00 KRISTEN LIANG i ty [facility] 2021-01-02 2021-01-02 Imm/Inj Nurse, Adc Fam Pob I [facility] 1.2.8 40.114 [id number] Univers 09:06:56 09:26:56 Visit Dodie Hoang Health 350.1.13.1 0 ity of [place] 4.2.7.2.686 Beau as Professio [phone] Mn dical [facility] 044 [place] Office Building One 2021-01-02 2021-01-02 [facility] [id number] Univers 09:00:00 09:00:00 DODIE ity o f [facility] 2020-12-28 2020-12-28 Office Amaris [facility] 1.2.840.114 [id number] Univers 08:56:28 09:58:18 Visit Kristen Dutton 350.1.13.10 i ty of [place].2.7.2.[place] [phone] Mn dicreena nal 085 [facility] 2020-12-28 2020-12-28 Outpatient R KRISTEN LIANG [facility] [id number] Univers 09:00:00 09:00:00 KRISTEN LIANG i ty of [facility] 2020-12-27 2020-12-27 Outpatient R MYNOR [facility] [id number] Univers 14:00:00 14:00:00 JONATHAN sultana [facility] 2020-12-26 2020-12-26 [facility] 1.2.840.114 [id number] Univers 11:01:11 23:59:00 Encounter Brenda Fraser SPECIALTY 350.1.13.10 ity of C[place] 4.2.7.2.686 [place] AT [phone] Mn yovanyreena PATEL 809 [facility] 2020-12-26 2020-12-26 Office [facility] 1.2.840.114 [id number] Univers 10:54:26 11:38:41 Visit Brenda Fraser SPECIALTY 350.1.13.10 ity of C[place] 4.2.7.2.686 [place] AT [phone] Mn yovanyreena PATEL 198 [facility] 2020-12-26 2020-12-26 Outpatient R [facility] [id number] Univers 10:50:00 10:50:00 BRENDA sandhuy [facility] 2020-12-26 2020-12-26 [facility] 1.2.840.114 [id number] Univers 00:00:00 00:00:00 Familia Dutton 350.1.13.10 i ty of [place] 4.2.7.2.[place] [phone] Mn dical nal 220 [facility] 2020-12-24 2020-12-24 Refgricelda [facility] 1.2.840.114 [id number] Univers 00:00:00 00:00:00 Wondiful A Health 350.1.13.10 ity of [place] 4.2.7.2.686 Beau as Professio [phone] Mn dic[address] Office [facility] One 2020-12-24 2020-12-24 Philip Hoang [facility] 1.2.840.114 [id number] Univers 00:00:00 00:00:00 Wondiful A Health 350.1.13.10 ity of [place] 4.2.7.2.686 Beau as Professio [phone] [address] One 2020-12-14 2020-12-14 Outpatient R BRANDY [facility] [id number] Univers 13:00:00 13:00:00 FAMILIA sultana [facility] 2020-12-14 2020-12-14 Nurse 1, Adc Infusion Nurse [facility] 1.2. 840.114 [id number] Univers 11:47:34 12:02:34 Visit Familia Nava 350.1.13.10 it[place] of [place] 4.2.7.2.686 [place] [phone] [place] 076403 [place] 2020-12-14 2020-12-14 Outpatient [facility] [id number] Univers 11:30:00 11:30:00 FAMILIA sultana [facility] 2020-12-14 2020-12-14 Orders Doctor TOBIAS 1.2.840.114 [id number] Univers 00:00:00 00:00:00 Only Unassigned, CARLA 350.1.13.10 [facility] 4.2.7.2.686 Beau as [phone] [address] 2020-12-07 2020-12-07 Outpatient R BRANDY [facility] [id number] Univers 12:00:00 12:00:00 FAMILIA sultana [facility] 2020-12-07 2020-12-07 Philip [facility] 1.2.840.114 [id number] Univers 00:00:00 00:00:00 Wondiful A Health 350.1.13.10 ity of [place] 4.2.7.2.686 Beau as Professio [phone] [facility] nal [address] [place] [address] Office [facility] One 2020-12-06 2020-12-06 Office [facility] 1.2.840.114 [id number] Univers 10:47:06 11:55:08 Visit Eduard BOUCHER 350.1.13.10 i ty of CARE 4.2.7.2.686 [place] [phone] [address] 2020-12-06 2020-12-06 Outpatient [facility] [id number] Univers 11:00:00 11:00:[address] [facility] 2020-12-05 2020-12-05 Outpatient R [facility] [id number] Univers 09:30:00 09:30:[address] [facility] 2020-12-05 2020-12-05 Case [facility] 1.2.840.114 [id number] Univers 00:00:00 00:00:00 Management Wondiful A Health 350.1.13.10 ity of [place] 4.2.7.2.686 Beau as Professio [phone] [address] One 2020-12-03 2020-12-03 Outpatient R LELA [facility] [id number] Univers 15:00:00 15:00:[address] [facility] 2020-11-30 2020-11-30 An/Syq 13 Nav/C2 Operator Lab, Adc Fam Pob I [facility] 1.2. 840.114 [id number] Univers 10:31:16 10:51:16 Visit Dodie Hoang Health 350.1.13.1 0 ity of [place] 4.2.7.2.686 Beau as Professio [phone] [facility] nal [address] [place] [address] One 2020-11-30 2020-11-30 Office [facility] 1.2.840.114 [id number] Univers 09:22:15 10:38:40 Visit Wondiful A Health 350.1.13.10 ity of [place] 4.2.7.2.686 Beau as Professio [phone] Me dical nal [address] Office Building One 2020-11-30 2020-11-30 Outpatient R VIKTOR, [facility] [id number] Univers 09:30:00 09:30:00 WONDIFUL ity o f [facility] 2020-11-30 2020-11-30 Telephone Janessa-Steveu [facility] 1.2.840.114 [id number] Univers 00:00:00 00:00:00 Sheree rush MULTISPEC 350.1.13.10 ity of [facility] 4.2.7.2.686 [facility] [phone] [facility] AND [place] [address] DIABETES CLINIC 2020-11-21 2020-11-21 Philip [facility] 1.2.840.114 [id number] Univers 00:00:00 00:00:00 [facility] 350.1.13.10 ity of [place] 4.2.7.2.686 [facility] [phone] [facility] Primary & [address] Specialty Care 2020-11-20 2020-11-20 Outpatient [facility] [id number] Univers 10:30:00 10:30:00 FAMILIA ity of [facility] 2020-11-14 2020-11-14 Outpatient [facility] [id number] Univers 11:00:00 11:00:00 LISETH ity [facility] 2020-11-14 2020-11-14 [facility] 1.2.840.114 [id number] Univers 00:00:00 00:00:00 Management Eduard BOUCHER 350.1.13.10 ity of CARE 4.2.7.2.686 [facility] [phone] Mn dical 044 [address] 2020-11-14 2020-11-14 Orders Doctor MICHELINE 1.2.840.114 [id number] Univers 00:00:00 00:00:00 Only Unassigned, CARLA 350.1.13.10 ity of [place] [facility] 4.2.7.2.686 [facility] [phone] [facility] 009 Branch 2020-11-13 2020-11-13 Outpatient [facility] [id number] Univers 11:15:00 11:15:00 WONDIFUL ity o f [facility] 2020-11-12 2020-11-12 Telephone [facility] 1.2.840.114 [id number] Univers 00:00:00 00:00:00 Familia H [place] 350.1.13.10 i ty of [place] 4.2.7.2.[place] [phone] Mn dical nal [address] Building 2020-11-09 2020-11-09 Outpatient [facility] [id number] Univers 15:30:00 15:30:00 FAMILIA itlibrado [facility] 2020-11-08 2020-11-08 Outpatient R KRISTEN LIANG [facility] [id number] Univers 14:00:00 14:00:00 KRISTEN LIANG i ty of [facility] 2020-11-08 2020-11-08 [facility] 1.2.840.114 [id number] Univers 00:00:00 00:00:00 Management Eduard E PRIMARY 350.1.13.10 ity of CARE 4.2.7.2.686 [place] [phone] Mn dical 044 [place] 2020-11-08 2020-11-08 [facility] 1.2.840.114 [id number] Univers 00:00:00 00:00:00 Management Eduard E PRIMARY 350.1.13.10 ity of C[place] 4.2.7.2.686 [place] [phone] Mn dical 044 [place] 2020-11-06 2020-11-06 Philip [facility] 1.2.840.114 [id number] Univers 00:00:00 00:00:00 Wondiful A Health 350.1.13.10 ity of [place] 4.2.7.2.686 Beau as Professio [phone] Mn dical nal 044 [place] Office Building One 2020-10-31 2020-10-31 Outpatient [facility] [id number] Univers 11:20:00 11:20:00 BRENDA itlibrado [facility] 2020-10-30 2020-10-30 [facility] 1.2.840.114 [id number] Univers 00:00:00 00:00:00 Management Eduard Rubin PRIMARY 350.1.13.10 ity of CARE 4.2.7.2.686 [place] [phone] [address] 2020-10-29 2020-10-29 Refgricelda [facility] 1.2.840.114 [id number] Univers 00:00:00 00:00:00 Wondiful A Health 350.1.13.10 ity of [place] 4.2.7.2.686 Beau as Professio [phone] [address] Office [facility] 2020-10-26 2020-10-26 [facility] 1.2.840.114 [id number] Univers 00:00:00 00:00:00 Wondiful A Health 350.1.13.10 ity of [place] 4.2.7.2.686 Beau as Professio [phone] [address] 2020-10-26 2020-10-26 [facility] 1.2.840.114 [id number] Univers 00:00:00 00:00:00 Wondiful A Health 350.1.13.10 ity of [place] 4.2.7.2.686 Beau as Professio [phone] [address] 2020-10-26 2020-10-26 [facility] 1.2.840.114 [id number] Univers 00:00:00 00:00:00 Wondiful A Health 350.1.13.10 ity of [place] 4.2.7.2.686 Beau as Professio [phone] [address] 2020-10-24 2020-10-24 Transition Jaylin Fu 1.2.840.114 [id number] Univers 00:00:00 00:00:00 of Care Aviva Hooks 350.1.13.10 ity of [place].2.7.2.[place] [id number] [address] 2020-10-09 2020-10-09 Outpatient Johan LEVI [facility] [id number] Univers 09:15:00 09:15:00 LICHA kayy o f [facility] 2020-10-03 2020-10-03 Refill [facility] 1.2.840.114 [id number] Univers 00:00:00 00:00:00 Baeza A MULTISPEC 350.1.13.10 ity of [place] 4.2.7.2.686 [place] [phone] [address] DIABETES CLINIC 2020-10-01 2020-10-01 Refgricelda Ho[facility] 1.2.840.114 [id number] Univers 00:00:00 00:00:00 Wondiful A Health 350.1.13.10 ity of [place] 4.2.7.2.686 Beau as Professio [phone] [address] Office Building One 2020-10-01 2020-10-01 Refgricelda [facility] 1.2.840.114 [id number] Univers 00:00:00 00:00:00 Wondiful A Health 350.1.13.10 ity of [place] 4.2.7.2.686 Beau as Professio [phone] [place] [address] Branch Office Building One 2020-09-04 2020-09-04 [facility] 1.2.840.114 [id number] Univers 00:00:00 00:00:00 Secure Msg Baeza A MULTISPEC 350.1.13.10 ity of [place] 4.2.7.2.686 [place] [phone] [address] DIABETES CLINIC 2020-09-04 2020-09-04 Refgricelda [facility] 1.2.840.114 [id number] Univers 00:00:00 00:00:00 Wondiful A Health 350.1.13.10 ity of [place] 4.2.7.2.686 Beau as Professio [phone] [address] Office Building One 2020-09-03 2020-09-03 Refill [facility] 1.2.840.114 [id number] Univers 00:00:00 00:00:00 Baeza A MULTISPEC 350.1.13.10 ity of [place] 4.2.7.2.686 [place] [id number] [facility] [address] [place] DIABETES CLINIC 2020-08-24 2020-08-24 Telephone [facility] 1.2.840.114 [id number] Univers 00:00:00 00:00:00 Baeza A MULTISPEC 350.1.13.10 ity of [place] 4.2.7.2.686 [place] [id number] [facility] [address] [place] DIABETES CLINIC 2020-08-24 2020-08-24 Refgricelda [facility] 1.2.840.114 [id number] Univers 00:00:00 00:00:00 Wondiful A Health 350.1.13.10 ity of [place] 4.2.7.2.686 Beau as Professio [phone] [address] Office [facility] 2020-08-23 2020-08-23 Outpatient R [facility] [id number] Univers 16:00:00 16:00:00 LICHA ity o f [facility] 2020-08-23 2020-08-23 [facility] 1.2.840.114 [id number] Univers 00:00:00 00:00:00 Wondiful A Health 350.1.13.10 ity of [place] 4.2.7.2.686 Beau as Professio [phone] [address] Office [facility] 2020-08-17 2020-08-17 Philip [facility] 1.2.840.114 [id number] Univers 00:00:00 00:00:00 Wondiful A Health 350.1.13.10 ity of [place] 4.2.7.2.686 Beau as Professio [phone] [address] Office [facility] 2020-08-15 2020-08-[address] [facility] [id number] Univers 11:15:00 11:15:00 BAEZA ity o f [facility] 2020-08-15 2020-08-15 Telemedici [facility] 1.2.840.114 [id number] Univers 07:55:18 08:10:18 ne Visit Baeza [place] MULTISPEC 350.1.13.10 ity of [place] 4.2.7.2.686 [place] [phone] [facility] AND [address] DIABETES CLINIC 2020-08-08 2020-08-08 Outpatient R [facility] [id number] Univers 11:15:00 11:15:00 BAEZA ity o f [facility] 2020-08-03 2020-08-03 Outpatient R ORTEGA LEE [facility] [id number] Univers 10:30:00 10:30:00 ity of [facility] 2020-08-03 2020-08-03 An/Syq 13 Nav/C2 Operator 2, Adc Lab [facility] 1.2.840.114 [id number] Univers 09:08:50 09:23:50 Visit Vicki Burk [place] 350.1.13.10 ity of [place] 4.2.7.2.686 [place] Professio [phone] [facility] 353 [facility] 2020-08-03 2020-08-03 Refgricelda [facility] 1.2.840.114 [id number] Univers 00:00:00 00:00:00 Wondiful A Health 350.1.13.10 ity of [place] 4.2.7.2.686 Beau as Professio [phone] [facility] 044 [facility] 2020-08-03 2020-08-03 Refgricelda [facility] 1.2.840.114 [id number] Univers 00:00:00 00:00:00 Wondiful A Health 350.1.13.10 ity of [place] 4.2.7.2.686 Beau as Professio [phone] Mn [facility] 044 [facility] One 2020-07-31 2020-07-31 Telephone [facility] 1.2.840.114 [id number] Univers 00:00:00 00:00:00 Baeza A MULTISPEC 350.1.13.10 ity of IALTY 4.2.7.2.686 [facility] [id number] [facility] AND [address] DIABETES CLINIC 2020-07-27 2020-07-27 Office [facility] 1.2.840.114 [id number] Univers 10:28:20 11:59:13 Visit Lul Pritchard Displair 350.1.13.10 ity of [place] 4.2.7.2.[address] [place] [address] [phone] [facility] Primary & [facility] Branch Specialty Care 2020-07-27 2020-07-27 Outpatient R [facility] [id number] Univers 10:45:00 10:45:00 LUL ity of [facility] 2020-07-27 2020-07-27 Patient [facility] 1.2.840.114 [id number] Univers 00:00:00 00:00:00 Secure Msg Lul Pritchard [facility] 350.1.13.10 ity of [place] 4.2.7.2.[address] [place] [address] [phone] [facility] PRIMARY & [facility] Branch SPECIALTY CARE 2020-07-18 2020-07-18 Outpatient R [facility] [id number] Univers 11:00:00 11:00:00 ARYAN sandhuy o f [facility] 2020-06-28 2020-06-28 Orders Doctor MICHELINE 1.2.840.114 [id number] Univers 00:00:00 00:00:00 Only Unassigned, CARLA 350.1.13.10 ity of [place] [facility] 4.2.7.[address] [place] [address] [phone] [place] [address] Branch 2020-06-25 2020-06-25 Refill [facility]Steve[facility] 1.2.840.114 [id number] Univers 00:00:00 00:00:00 Sheree rush MULTISPEC 350.1.13.10 ity of [facility] 4.2.7.2.[address] [place] [address] [phone] [facility] AND [address] DIABETES CLINIC 2020-05-29 2020-05-29 Patient [facility] 1.2.840.114 [id number] Univers 00:00:00 00:00:00 Secure Msg Wondiful A [place] 350.1.13.10 ity of [place] 4.2.7.2.[place] [phone] [address] 2020-05-17 2020-05-17 Philip [facility] 1.2.840.114 [id number] Univers 00:00:00 00:00:00 Wondiful A Health 350.1.13.10 ity of [place] 4.2.7.2.686 Beau as Professio [phone] [address] One 2020-05-10 2020-05-10 [facility] 1.2.840.114 [id number] Univers 00:00:00 00:00:00 Management Sheree rush MULTISPEC 350.1.13.10 ity of [place] 4.2.7.2.686 [place] [phone] [address] DIABETES CLINIC 2020-05-08 2020-05-08 Outpatient R [facility] [id number] Univers 11:45:00 11:45:00 SHEREE RUSH ity of [facility] 2020-05-08 2020-05-08 Refgricelda [facility] 1.2.840.114 [id number] Univers 00:00:00 00:00:00 Wondiful A Health 350.1.13.10 ity of [place] 4.2.7.2.686 Beau as Professio [phone] [address] 2020-05-08 2020-05-08 Refgricelda PriceFOUR [facility] 1.2.840.114 [id number] Univers 00:00:00 00:00:00 Baeza A MULTISPEC 350.1.13.10 ity of [place] 4.2.7.2.[place] [phone] [address] DIABETES CLINIC 2020-05-06 2020-05-06 Refgricelda [facility] 1.2.840.114 [id number] Univers 00:00:00 00:00:00 Wondiful A Health 350.1.13.10 ity of [place] 4.2.7.2.686 Beau as Professio [phone] Mn dical nal 0[address] Office Building One 2020-05-03 2020-05-03 Outpatient R DLAI [facility] [id number] Univers 09:45:00 09:45:00 VICKI ity of [facility] 2020-05-03 2020-05-03 An/Syq 13 Nav/C2 Operator 2, Adc Lab [facility] 1.2.840.114 [id number] Univers 09:09:51 09:24:51 Visit Dali Vicki Galeas [place] 350.1.13.1 0 [place] 4[place]2.7.2.[place] [phone] Mn dical nal 353 [facility] 2020-04-30 2020-04-30 Patient Gamilla-Cru [facility] 1.2.840.114 [id number] Univers 00:00:00 00:00:00 Secure Msg do, Sheree K N MULTISPEC 350.1.13.10 [place]2.7.2.[place] [phone] [address] [facility] 2020-04-27 2020-04-27 Outpatient R VIKTOR [facility] [id number] Univers 11:00:00 11:00:00 WONDIFUL ity o f [facility] 2020-04-27 2020-04-27 An/Syq 13 Nav/C2 Operator 2, Adc Lab [facility] 1.2.840.114 [id number] Univers 08:56:20 09:11:20 Visit Dodie [place] 350.1.13. 10 [place] 4[place]2.7.2.[place] [phone] Mn dical nal 353 [facility] 2020-04-19 2020-04-19 Telemedici Viktor [facility] 1.2.840.114 [id number] Univers 07:48:06 12:22:49 ne Visit Dodie Aguila [place] 350.1.13.10 [place] 4[place]2.7.2.[place] [phone] Mn dical nal 044 [facility] 2020-04-19 2020-04-19 Outpatient R VIKTOR [facility] [id number] Univers 10:15:00 10:15:00 WONDIFUL ity o f [facility] 2020-04-18 2020-04-18 Outpatient R [facility] [id number] Univers 15:00:00 15:00:00 BAEZA ity o f [facility] 2020-03-28 2020-03-28 Outpatient R [facility] [id number] Univers 10:00:00 10:00:00 ity of [facility] 2020-03-20 2020-03-20 Outpatient R [facility] [id number] Univers 15:00:00 15:00:00 BAEZA ity o f [facility] 2020-03-20 2020-03-20 Telephone [facility] 1.2.840.114 [id number] Univers 00:00:00 00:00:00 Aryan A MULTISPEC 350.1.13.10 ity of [facility] 4.2.7.2.686 [place] [phone] [place] [facility] [place] [address] [place] [facility] 2020-03-16 2020-03-16 An/Syq 13 Nav/C2 Operator 2, Adc Lab [facility] 1.2.840.114 [id number] Univers 10:09:15 10:24:15 Visit Iveth Art 350.1.13. 10 [place] [phone] Mn dicst. [facility] [address] [facility] 2020-03-16 2020-03-16 Outpatient R IVETH ART [facility] [id number] Univers 10:15:00 10:15:00 ity of [facility] 2020-03-15 2020-03-15 Orders Doctor MICHELINE 1.2.840.114 [id number] Univers 00:00:00 00:00:00 Only Unassigned, CARLA 350.1.13.10 ity of [place] [facility] 4.2.7.2.686 Beau as [phone] [facility] [address] 2020-03-14 2020-03-14 Case [facility] 1.2.840.114 [id number] Univers 00:00:00 00:00:00 Management Baeza A MULTISPEC 350.1.13.10 it[place] [phone] [facility] [address] [place] [facility] 2020-03-13 2020-03-13 Telephone [facility] 1.2.840.114 [id number] Univers 00:00:00 00:00:00 Baeza A MULTISPEC 350.1.13.10 [place] [phone] [address] DI[facility]ES [facility]INIC 2020-03-13 2020-03-13 Telephone [facility] 1.2.840.114 [id number] Univers 00:00:00 00:00:00 Sheree rush MULTISPEC 350.1.13.10 [place] [phone] [address] DIABETES [employer] 2020-02-29 2020-02-29 Outpatient R [facility] [id number] Univers 10:00:00 10:00:00 ity of [facility] 2020-02-25 2020-02-25 Refill [facility] 1.2.840.114 [id number] Univers 00:00:00 00:00:00 Wondiful A Health 350.1.13.10 ity of [place] 4.2.7.2.686 [place] Professio [phone] [address] Office Building One 2020-02-14 2020-02-14 Refill [facility] 1.2.840.114 [id number] Univers 00:00:00 00:00:00 Baeza A MULTISPEC 350.1.13.10 [place] [phone] [address] DIABETES CLINIC 2020-02-14 2020-02-14 Letter [facility] 1.2.840.114 [id number] Univers 00:00:00 00:00:00 (Out) Jerald Aguila MULTISPEC 350.1.13.10 [place] [phone] [address] DIABETES CLINIC 2020-02-09 2020-02-09 Refill Sophia[facility] 1.2.840.114 [id number] Univers 00:00:00 00:00:00 Sheree rush MULTISPEC 350.1.13.10 it[place] [phone] [address] DIABETES CLINIC 2020-02-01 2020-02-01 Telephone [facility] 1.2.840.114 [id number] Univers 00:00:00 00:00:00 Baeza A MULTISPEC 350.1.13.10 it[place] [id number] [address] DIABETES [employer] 2020-02-01 2020-02-01 Refgricelda [facility] 1.2.840.114 [id number] Univers 00:00:00 00:00:00 Wondiful A Health 350.1.13.10 ity of [place] 4.2.7.2.686 [place] Professio [phone] [address] Office [facility] One 2020-01-30 2020-01-30 Telephone [facility] 1.2.840.114 [id number] Univers 00:00:00 00:00:00 Baeza A MULTISPEC 350.1.13.10 [place] [phone] [address] DIABETES CLINIC 2020-01-27 2020-01-27 Telephone [facility] 1.2.840.114 [id number] Univers 00:00:00 00:00:00 Baeza A MULTISPEC 350.1.13.10 it[place] [id number] [address] DIABETES CLINIC 2020-01-26 2020-01-26 [facility] 1.2.840.114 [id number] Univers 00:00:00 00:00:00 Sheree rush 350.1.13.10 it[place] [phone] [facility] [address] [place] DI[facility]IC 2020-01-25 2020-01-25 Nurse Nurse, Transplant [facility] 1.2.840. 114 [id number] Univers 09:57:29 10:42:30 Visit Sheree Bhakta 350.1 .13.10 it[place] [id number] [address] DIABETES CLINIC 2020-01-25 2020-01-25 Outpatient R JANESSA-DENA [facility] [id number] Univers 10:00:00 10:00:00 SHEREE RUSH of [facility] 2020-01-19 2020-01-19 Office [facility] 1.2.840.114 [id number] Univers 10:05:34 11:18:48 Visit Dodie A Health 350.1.13.10 ity of [place] 4.2.7.2.686 [place] as Professio [phone] Mn dical nal [address] [place] Office [address] One 2020-01-19 2020-01-19 Outpatient R VIKTOR [facility] [id number] Univers 10:15:00 10:15:00 VICTOR MANUELDIFUL ity o f [facility] 2020-01-17 2020-01-17 [facility] 1.2.840.114 [id number] Univers 00:00:00 00:00:00 Eduard BOUCHER 350.1.13.10 i ty of C[place].2.[place] [phone] Mn dical [address] [place] 2020-01-16 2020-01-16 Office Qian [facility] 1.2.840.114 [id number] Univers 10:22:05 13:31:44 Visit Sheree rush 350.1.13.10 ity [place] [phone] [facility] [address] [place] DI[facility]IC 2020-01-16 2020-01-16 Outpatient R GAMJULES-CRU [facility] [id number] Univers 10:20:00 10:20:00 SHEREE RUSH of [facility] 2020-01-16 2020-01-16 Case Janessa-Steveu [facility] 1.2.840.114 [id number] Univers 00:00:00 00:00:00 Management Sheree rush 350.1.13.10 [place] [phone] [facility] AND UMAIR [address] [place] DI[facility] 2020-01-13 2020-01-13 Office Tony [facility] 1.2.788.682 [id number] Univers 15:23:38 15:38:38 Visit Nathan SPECIALTY 350.1.13.10 ity of C[place]2.[place] AT [phone] Mn dical [facility] 188 [facility] 2020-01-13 2020-01-13 An/Syq 13 Nav/C2 Operator 2, Adc Lab [facility] 1.2.840.114 [id number] Univers 09:07:42 09:22:42 Visit Sheree Bhakta 350.1. 13.10 [place]2.[place] [facility] [phone] Mn dical nal [address] [facility] 2020-01-13 2020-01-13 Orders Doctor MICHELINE 1.2.840.114 [id number] Univers 00:00:00 00:00:00 Only Unassigned, CARLA 350.1.13.10 [place]y of [place] HOSPITAL 4.2.7.2.686 Beau as [phone] [facility] [address] 2020-01-06 2020-01-06 Office Pelon Tucker [facility] 1.2.840.114 [id number] Univers 08:40:45 10:50:46 Visit R Y 350.1.13.10 it y of [facility] 4.2.7.2.686 Beau as BANK [phone] [facility] BLDG. [address] 2020-01-04 2020-01-04 Office Kranthi [facility] 1.2.840.114 [id number] Univers 15:44:28 16:34:51 Visit Tiffanie Health 350.1.13.10 i ty of [place] 4.2.7.2.686 [place] as Professio [phone] Mn dical nal [address] [place] Office [facility] One 2019-12-29 2019-12-29 Orders Doctor TOBIAS 1.2.840.114 [id number] Univers 00:00:00 00:00:00 Only Unassigned, CARLA 350.1.13.10 ity of [place] HOSPITAL 4.2.7.2.686 Beau as [id number] [facility] [address] 2019-12-15 2019-12-27 Office Vicki Mcnally [facility] 1.2.840 .114 [id number] Univers 10:19:10 23:02:02 Visit Aryan Price MULTISPEC 350.1.13 .10 it[place] [id number] [facility] AND [address] [place] DI[facility]INIC 2019-12-23 2019-12-23 Office Viktor [facility] 1.2.840.114 [id number] Univers 16:09:22 17:00:36 Visit Wondiful A Health 350.1.13.10 ity of [place] 4.2.7.2.686 [place] as Professio [phone] Mn dical nal [address] [place] Office [facility] One 2019-12-16 2019-12-16 Office Tony [facility] 1.2.582.733 [id number] Univers 13:48:20 16:52:26 Visit Nathan SPECIALTY 350.1.13.10 ity of [place] AT [phone] Mn chandrakant SHELBYLibrado [address] [place] [address] 2019-12-16 2019-12-16 [facility] 1.2.840.114 [id number] Univers 00:00:00 00:00:00 Surgery Nathan SPECIALTY 350.1.13.10 it[place] AT [phone] Mn chandrakant PATEL [address] [place] [address] 2019-12-16 2019-12-16 Orders Doctor TOBIAS 1.2.840.114 [id number] Univers 00:00:00 00:00:00 Only Unassigned, CARLA 350.1.13.10 [place] of [place] HOSPITAL 4.2.7.2.686 Beau as [phone] [facility] [address] 2019-12-15 2019-12-15 Office Juan C [facility] 1.2.550.282 [id number] Univers 13:27:34 15:04:28 Visit Jacqueline Dutton 350.1.13.10 i [place] [phone] Mn dical nal [address] [facility] 2019-12-15 2019-12-15 An/Syq 13 Nav/C2 Operator Vtc-Lab [place] 1.2.840.114 [id number] Univers 11:42:29 11:52:29 Visit Vicki Mcnally MULTISPEC 350.1.13. 10 it[place] of [place] [phone] [facility] [address] [place] DIABETES CLINIC 2019-12-15 2019-12-15 Case [facility] 1.2.840.114 [id number] Univers 00:00:00 00:00:00 Management Vicki Adal MULTISPEC 350.1.13.10 ity [place] [id number] [facility] AND BLOCK [address] [place] DI[facility]INIC 2019-12-13 2019-12-13 Philip [facility] 1.2.840.114 [id number] Univers 00:00:00 00:00:00 Wondiful A Health 350.1.13.10 ity of [place] 4.2.7.2.686 Beau as Professio [phone] Mn dical nal [address] [place] Office [facility] One 2019-12-09 2019-12-09 An/Syq 13 Nav/C2 Operator Abbi, Adwoa Lab [place] 1.2.8 40.114 [id number] Univers 09:30:06 09:45:06 Visit Sheree Bhakta 350.1. 13.10 [place] [phone] Mn dical nal [address] [facility] 2019-12-09 2019-12-09 Orders Doctor MICHELINE 1.2.840.114 [id number] Univers 00:00:00 00:00:00 Only Unassigned, CARLA 350.1.13.10 ity of [place] [facility] 4.2.7.2.686 Beau as [phone] [place] [address] Branch 2019-12-07 2019-12-07 Telephone [facility] 1.2.840.114 [id number] Univers 00:00:00 00:00:00 Baeza Mingo MULTISPEC 350.1.13.10 ity of IAL[place] 4.2.7.2.686 [facility] [place] [phone] [address] DIABETES CLINIC 2019-11-18 2019-11-18 Office [facility] 1.2.653.506 [id number] [id number] Univers 15:33:10 16:18:36 Visit Familia Dutton 350.1.13.10 i ty of [place] 4.2.7.2.686 [facility] Profess[facility] [phone] Mn dical [facility] [address] [facility] 2019-11-13 2019-11-14 [facility] [id number] Univers 00:59:00 17:08:00 PREMAL ity of [facility] 2019-10-28 2019-10-28 Outpatient [facility] [id number] Univers 10:22:54 23:59:00 BRENDA ity of [facility] 2019-07-29 2019-07-29 Telephone [facility] 1.2.840.114 [id number] Univers 00:00:00 00:00:00 Aryan Aguila MULTISPEC 350.1.13.10 ity of [place] 4.2.7.2.686 [facility] [place] [phone] [address] DIABETES CLINIC 2019-07-27 2019-07-27 Office [facility] 1.2.840.114 [id number] Univers 10:37:39 11:59:21 Visit Lul ALEJANDRO 350.1.13.10 ity of [place] 4.2.7.2.686 [facility] [phone] [facility] Branch Specialty Care 2019-07-04 2019-07-04 Refgricelda [facility] 1.2.840.114 [id number] Univers 00:00:00 00:00:00 Wondiful A Health 350.1.13.10 ity of [place] 4.2.7.2.686 Beau as Professio [phone] [address] Office Building One 2019-06-29 2019-06-29 Refgricelda [facility] 1.2.840.114 [id number] Univers 00:00:00 00:00:00 Wondiful A Health 350.1.13.10 ity of [place] 4.2.7.2.686 [place] as Professio [phone] [address] Office Building One 2019-06-28 2019-06-28 Telephone Viktor [facility] 1.2.840.114 [id number] Univers 00:00:00 00:00:00 Wondiful A Health 350.1.13.10 ity of [place] 4.2.7.2.686 [place] as Professio [phone] [address] Office Building One 2019-06-28 2019-06-28 Telephone Albert [facility] 1.2.840.114 [id number] Univers 00:00:00 00:00:00 Baeza A MULTISPEC 350.1.13.10 ity of [place].2.[place] [phone] [place] [address] [address] DIABETES CLINIC 2019-06-28 2019-06-28 Telephone [facility] 1.2.840.114 [id number] Univers 00:00:00 00:00:00 Wondiful A Health 350.1.13.10 ity of [place] 4.2.7.2.686 [place] as Professio [phone] [address] Office Building One 2019-06-27 2019-06-27 Refgricelda [facility] 1.2.840.114 [id number] Univers 00:00:00 00:00:00 Wondiful A Health 350.1.13.10 ity of [place] 4.2.7.2.686 Beau as Professio [phone] [address] One 2019-06-21 2019-06-21 An/Syq 13 Nav/C2 Operator Lab, Adc Fam Pob I [facility] 1.2. 840.114 [id number] Univers 09:00:36 10:00:54 Visit Dodie Hoang Health 350.1.13.1 0 ity of [place] 4.2.7.2.686 [place] as Professio [phone] [address] One 2019-06-21 2019-06-21 Telephone Viktor [facility] 1.2.840.114 [id number] Univers 00:00:00 00:00:00 Mishaful [place] Health 350.1.13.10 ity of [place] 4.2.7.2.686 [place] as Professio [phone] [address] One 2019-06-17 2019-06-17 Office Viktor [facility] 1.2.840.114 [id number] [facility] 15:02:14 15:51:28 Visit Dodie Aguila Health 350.1.13.10 ity of [place] 4.2.7.2.686 [place] as Professio [phone] [address] One Results Test Description Test Time Test Comments Results Result Comments Source EXTERNAL DD-CFDNA 2023-10-02 00:00:00 Test Item Value Reference Range Interpretation Comme nts DD-cfDNA (External Results) (test code = 5126) 1.3 <=1.0 A Lab Interpretation (test code = 98826-7) Abnormal [facility] Diuba8655-40-14 20:45:45 Test Item Value Reference Range Interpretation Comments MAGNESIUM (test code = 1689496919) 1.6 mg/dL 1.7-2.4 L Lab Interpretation (test code = Abnormal 41418-9) [facility] Rjswr4734-22-64 20:45:45 Test Item Value Reference Range Interpretation Comments MAGNESIUM (test code = 6598014787) 1.6 mg/dL 1.7-2.4 L Lab Interpretation (test code = Abnormal 25718-5) [facility] Metabolic Panel (NA, K, CL, CO2, Glucose, BUN, Creatinine, CA)2023-06-05 20:45:25 Test Item Value Reference Range Interpretation Comments NA (test code = 138 mmol/L 135-145 1259997103) K (test code = 3.8 mmol/L 3.5-5.0 9689253487) CL (test code = 105 mmol/L 98-108 3973325945) CO2 TOTAL (test code = 22 mmol/L 23-31 L 9009975457) AGAP (test code = 11 2-16 7018601727) BUN (test code = 34 mg/dL 7-23 H 2249352017) GLUCOSE (test code = 97 mg/dL 70-110 5559207585) CREATININE (test code = 1.17 mg/dL 0.50-1.04 H 3563514310) CALCIUM (test code = 9.7 mg/dL 8.6-10.6 3279995040) eGFR (test code = 46.1 mL/min/1.73m2 1930870414) ALONDRA (test code = ALONDRA) Association of Glomerular Filtration Rate (GFR) and Staging of Kidney Disease* + --+ --+ ------+| GFR (mL/min/1.73 m2) ?| With Kidney Damage ?| ?Without Kidney Damage+ --------+ --------+ +| ?>90 ?| ?Stage one ?| ? Normal ?+ ---+ ---+ -------+| ?60-89 ?| ?Stage two ?| ? Decreased GFR ? + --+ --+ ------+| ?30-59 ?| ?Stage three ?| ? Stage three ? + --+ --+ ------+| ?15-29 ?| ?Stage four ? | ? Stage four ?+ ---+ ---+ -------+| ?<15 (or dialysis) ? ?| ?Stage five ? | ? Stage five ?+ ---+ ---+ -------+ *Each stage assumes the associated GFR level has been in effect for at least three months. ?Stages 1 to 5, with or without kidney disease, indicate chronic kidney disease. Notes: Determination of stages one and two (with eGFR >59mL/min/1.73 m2) requires estimation of kidney damage for at least three months as defined by structural or functional abnormalities of the kidney, manifested by either:Pathological abnormalities or Markers of kidney damage (including abnormalities in the composition of the blood or urine or abnormalities in imaging tests). Lab Interpretation Abnormal (test code = 48817-4) [facility] Bdghn1361-29-39 20:45:25 Test Item Value Reference Range Interpretation Comments PHOSPHORUS (test code = 3715188726) 3.9 mg/dL 2.5-5.0 Lab Interpretation (test code = Normal 92939-8) [facility] Metabolic Panel (NA, K, CL, CO2, Glucose, BUN, Creatinine, CA)2023-06-05 20:45:25 Test Item Value Reference Range Interpretation Comments NA (test code = 138 mmol/L 135-145 8879730750) K (test code = 3.8 mmol/L 3.5-5.0 4386526758) CL (test code = 105 mmol/L 98-108 3930821615) CO2 TOTAL (test code = 22 mmol/L 23-31 L 5795559588) AGAP (test code = 11 2-16 8863041274) BUN (test code = 34 mg/dL 7-23 H 9722325604) GLUCOSE (test code = 97 mg/dL 70-110 0362830997) CREATININE (test code = 1.17 mg/dL 0.50-1.04 H 3957194656) CALCIUM (test code = 9.7 mg/dL 8.6-10.6 8597587482) eGFR (test code = 46.1 mL/min/1.73m2 5089701052) ALONDRA (test code = ALONDRA) Association of Glomerular Filtration Rate (GFR) and Staging of Kidney Disease* + --+ --+ ------+| GFR (mL/min/1.73 m2) ?| With Kidney Damage ?| ?Without Kidney Damage+ --------+ --------+ +| ?>90 ?| ?Stage one ?| ? Normal ?+ ---+ ---+ -------+| ?60-89 ?| ?Stage two ?| ? Decreased GFR ? + --+ --+ ------+| ?30-59 ?| ?Stage three ?| ? Stage three ? + --+ --+ ------+| ?15-29 ?| ?Stage four ? | ? Stage four ?+ ---+ ---+ -------+| ?<15 (or dialysis) ? ?| ?Stage five ? | ? Stage five ?+ ---+ ---+ -------+ *Each stage assumes the associated GFR level has been in effect for at least three months. ?Stages 1 to 5, with or without kidney disease, indicate chronic kidney disease. Notes: Determination of stages one and two (with eGFR >59mL/min/1.73 m2) requires estimation of kidney damage for at least three months as defined by structural or functional abnormalities of the kidney, manifested by either:Pathological abnormalities or Markers of kidney damage (including abnormalities in the composition of the blood or urine or abnormalities in imaging tests). Lab Interpretation Abnormal (test code = 36063-9) [facility] Center[facility] [id number] 20:45:25 Test Item Value Reference Range Interpretation Comments PHOSPHORUS (test code = 9788111884) 3.9 mg/dL 2.5-5.0 Lab Interpretation (test code = Normal 52667-7) [facility] CenterCBC with Oztuvilhomny1724-14-83 20:09:19 Test Item Value Reference Range Interpretation Comments WBC (test code = 10.43 See_Comment [Automated 6690-2) message] The sy stem which generated this result transmitted reference range : 4.30 - 11.10 10*3/?L. The reference range was not used to interpret this result as normal/abnormal . RBC (test code = 3.08 See_Comment L [Automated 669-8) message] The sy stem which generated this result transmitted reference range : 3.93 - 5.25 10*6/?L. The reference range was not used to interpret this result as normal/abnormal . HGB (test code = 9.6 g/dL 11.6-15.0 L 718-7) HCT (test code = 29.1 % 35.7-45.2 L 4544-3) MCV (test code = 94.5 fL 80.6-95.5 787-2) MCH (test code = 31.2 pg 25.9-32.8 785-6) MCHC (test code = 33.0 g/dL 31.6-35.1 786-4) RDW-SD (test code = 43.4 fL 39.0-49.9 83185-0) RDW-CV (test code = 12.7 % 12.0-15.5 788-0) PLT (test code = 267 See_Comment [Automated 777-3) message] The sy stem which generated this result transmitted reference range : 166 - 358 10*3/ ?L. The reference r ale was not used to interpret this result as normal/abnormal . MPV (test code = 9.8 fL 9.5-12.9 06680-0) NRBC/100 WBC (test 0.0 See_Comment [Automat ed code = 9369932620) message] The system which generated this result transmitted reference range : 0.0 - 10.0 /100 WBCs. The refer ence range was not u sed to interpret th is result as normal/abnormal . NRBC x10^3 (test code See_Comment [Auto mated = 8317639371) message] The s ystem which generated this result transmitted reference range : 10*3/?L. The reference range was not used to interpret this result as normal/abnormal . GRAN MAT (NEUT) % 74.8 % (test code = 770-8) IMM GRAN % (test code 1.20 % = 3903959038) LYMPH % (test code = 17.1 % 736-9) MONO % (test code = 6.1 % 5905-5) EOS % (test code = 0.5 % 713-8) BASO % (test code = 0.3 % 706-2) GRAN MAT x10^3(ANC) 7.81 10*3/uL 1.88-7.09 H (test code = 6394462917) IMM GRAN x10^3 (test 0.12 10*3/uL 0.00-0.06 H code = 8118942118) LYMPH x10^3 (test code 1.78 10*3/uL 1.32-3.29 = 731-0) MONO x10^3 (test code 0.64 10*3/uL 0.33-0.92 = 742-7) EOS x10^3 (test code = 0.05 10*3/uL 0.03-0.39 711-2) BASO x10^3 (test code 0.03 10*3/uL 0.01-0.07 = 704-7) Lab Interpretation Abnormal (test code = 25572-4) [facility] with Vsclerfoxenv9998-45-89 20:09:19 Test Item Value Reference Range Interpretation Comments WBC (test code = 10.43 See_Comment [Automated 6690-2) message] The sy stem which generated this result transmitted reference range : 4.30 - 11.10 10*3/?L. The reference range was not used to interpret this result as normal/abnormal . RBC (test code = 3.08 See_Comment L [Automated 789-8) message] The sy stem which generated this result transmitted reference range : 3.93 - 5.25 10*6/?L. The reference range was not used to interpret this result as normal/abnormal . HGB (test code = 9.6 g/dL 11.6-15.0 L 718-7) HCT (test code = 29.1 % 35.7-45.2 L 4544-3) MCV (test code = 94.5 fL 80.6-95.5 787-2) MCH (test code = 31.2 pg 25.9-32.8 785-6) MCHC (test code = 33.0 g/dL 31.6-35.1 786-4) RDW-SD (test code = 43.4 fL 39.0-49.9 10289-3) RDW-CV (test code = 12.7 % 12.0-15.5 788-0) PLT (test code = 267 See_Comment [Automated 777-3) message] The sy stem which generated this result transmitted reference range : 166 - 358 10*3/ ?L. The reference r ale was not used to interpret this result as normal/abnormal . MPV (test code = 9.8 fL 9.5-12.9 76031-7) NRBC/100 WBC (test 0.0 See_Comment [Automat ed code = 1151381221) message] The system which generated this result transmitted reference range : 0.0 - 10.0 /100 WBCs. The refer ence range was not u sed to interpret th is result as normal/abnormal . NRBC x10^3 (test code See_Comment [Auto mated = 1343851116) message] The s ystem which generated this result transmitted reference range : 10*3/?L. The reference range was not used to interpret this result as normal/abnormal . GRAN MAT (NEUT) % 74.8 % (test code = 770-8) IMM GRAN % (test code 1.20 % = 8831541157) LYMPH % (test code = 17.1 % 736-9) MONO % (test code = 6.1 % 5905-5) EOS % (test code = 0.5 % 713-8) BASO % (test code = 0.3 % 706-2) GRAN MAT x10^3(ANC) 7.81 10*3/uL 1.88-7.09 H (test code = 9197840945) IMM GRAN x10^3 (test 0.12 10*3/uL 0.00-0.06 H code = 2943342031) LYMPH x10^3 (test code 1.78 10*3/uL 1.32-3.29 = 731-0) MONO x10^3 (test code 0.64 10*3/uL 0.33-0.92 = 742-7) EOS x10^3 (test code = 0.05 10*3/uL 0.03-0.39 711-2) BASO x10^3 (test code 0.03 10*3/uL 0.01-0.07 = 704-7) Lab Interpretation Abnormal (test code = 24971-2) [id number]:00:00 Test Item Value Reference Range Interpretation Comments DD-cfDNA (External Results) (test 1.3 <=1.0 A code = 5126) Lab Interpretation (test code = Abnormal 97089-2) [facility] [id number] 21:15:45 Test Item Value Reference Range Interpretation Comments MAGNESIUM (test code = 3553627508) 1.7 mg/dL 1.7-2.4 Lab Interpretation (test code = Normal 85235-5) [facility] (NA, K, CL, CO2, Glucose, BUN, Creatinine, CA)2022-12-29 21:15:30 Test Item Value Reference Range Interpretation Comments NA (test code = 138 mmol/L 135-145 2040360197) K (test code = 4.3 mmol/L 3.5-5.0 9093060588) CL (test code = 104 mmol/L 98-108 0046945436) CO2 TOTAL (test code = 27 mmol/L 23-31 1569770070) AGAP (test code = 7 2-16 8160323831) BUN (test code = 24 mg/dL 7-23 H 0671749138) GLUCOSE (test code = 75 mg/dL 70-110 6215703849) CREATININE (test code = 1.16 mg/dL 0.50-1.04 H 9467409452) CALCIUM (test code = 9.1 mg/dL 8.6-10.6 0994485495) eGFR (test code = 46.7 mL/min/1.73m2 5368068156) ALONDRA (test code = ALONDRA) Association of Glomerular Filtration Rate (GFR) and Staging of Kidney Disease* + --+ --+ ------+| GFR (mL/min/1.73 m2) ?| With Kidney Damage ?| ?Without Kidney Damage+ --------+ --------+ +| ?>90 ?| ?Stage one ?| ? Normal ?+ ---+ ---+ -------+| ?60-89 ?| ?Stage two ?| ? Decreased GFR ? + --+ --+ ------+| ?30-59 ?| ?Stage three ?| ? Stage three ? + --+ --+ ------+| ?15-29 ?| ?Stage four ? | ? Stage four ?+ ---+ ---+ -------+| ?<15 (or dialysis) ? ?| ?Stage five ? | ? Stage five ?+ ---+ ---+ -------+ *Each stage assumes the associated GFR level has been in effect for at least three months. ?Stages 1 to 5, with or without kidney disease, indicate chronic kidney disease. Notes: Determination of stages one and two (with eGFR >59mL/min/1.73 m2) requires estimation of kidney damage for at least three months as defined by structural or functional abnormalities of the kidney, manifested by either:Pathological abnormalities or Markers of kidney damage (including abnormalities in the composition of the blood or urine or abnormalities in imaging tests). Lab Interpretation Abnormal (test code = 75566-5) [facility] Mxgus5313-43-07 21:15:29 Test Item Value Reference Range Interpretation Comments PHOSPHORUS (test code = 5934175977) 4.1 mg/dL 2.5-5.0 Lab Interpretation (test code = Normal 31868-1) [facility] CenterCBC with Bfupbzrcsiln2964-07-04 19:57:13 Test Item Value Reference Range Interpretation Comments WBC (test code = 9.45 See_Comment [Automated 6690-2) message] The sy stem which generated this result transmitted reference range : 4.30 - 11.10 10*3/?L. The reference range was not used to interpret this result as normal/abnormal . RBC (test code = 3.22 See_Comment L [Automated 789-8) message] The sy stem which generated this result transmitted reference range : 3.93 - 5.25 10*6/?L. The reference range was not used to interpret this result as normal/abnormal . HGB (test code = 9.9 g/dL 11.6-15.0 L 718-7) HCT (test code = 30.6 % 35.7-45.2 L 4544-3) MCV (test code = 95.0 fL 80.6-95.5 787-2) MCH (test code = 30.7 pg 25.9-32.8 785-6) MCHC (test code = 32.4 g/dL 31.6-35.1 786-4) RDW-SD (test code = 42.2 fL 39.0-49.9 31379-4) RDW-CV (test code = 12.2 % 12.0-15.5 788-0) PLT (test code = 210 See_Comment [Automated 777-3) message] The sy stem which generated this result transmitted reference range : 166 - 358 10*3/ ?L. The reference r ale was not used to interpret this result as normal/abnormal . MPV (test code = 10.3 fL 9.5-12.9 96739-0) NRBC/100 WBC (test 0.0 See_Comment [Automat ed code = 6487979988) message] The system which generated this result transmitted reference range : 0.0 - 10.0 /100 WBCs. The refer ence range was not u sed to interpret th is result as normal/abnormal . NRBC x10^3 (test code See_Comment [Auto mated = 7129003243) message] The s ystem which generated this result transmitted reference range : 10*3/?L. The reference range was not used to interpret this result as normal/abnormal . GRAN MAT (NEUT) % 70.7 % (test code = 770-8) IMM GRAN % (test code 0.80 % = 4136596528) LYMPH % (test code = 20.3 % 736-9) MONO % (test code = 7.2 % 5905-5) EOS % (test code = 0.6 % 713-8) BASO % (test code = 0.4 % 706-2) GRAN MAT x10^3(ANC) 6.67 10*3/uL 1.88-7.09 (test code = 4060071234) IMM GRAN x10^3 (test 0.08 10*3/uL 0.00-0.06 H code = 8007037466) LYMPH x10^3 (test code 1.92 10*3/uL 1.32-3.29 = 731-0) MONO x10^3 (test code 0.68 10*3/uL 0.33-0.92 = 742-7) EOS x10^3 (test code = 0.06 10*3/uL 0.03-0.39 711-2) BASO x10^3 (test code 0.04 10*3/uL 0.01-0.07 = 704-7) Lab Interpretation Abnormal (test code = 07465-2) [facility] (RESULTS)2022-10-14 18:53:02 Test Item Value Reference Range Interpretation Comments FVC Actual (test code = 3994) 1.33 L FEV1 Actual (test code = 3993) 1.21 L FEV1/FVC Actual (test code = 3995) 91 % 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) Recent VisitsDate Type Provider Dept 06/02/23 Office Visit Simone Bill, COURT INTERPRETER [facility] 04/03/23 Office Visit [address]one Bill [facility] INTERPRE[facility] 01/27/23 Office Visit Simone Bill [facility] INTERPRE[facility] 07/18/22 Office Visit Simone Bill [facility] INTERPRE[facility] 03/25/22 Office Visit Simone Bill [facility] INTERPRE[facility] Showing recent visits within past 540 days with a meds authorizing provider and meeting all other requirementsFuture AppointmentsDate Type Provider Dept 09/02/23 Appointment Simone Bill FNP [facility] Showing future appointments within next 150 days with a meds authorizing provider and meeting all other requirements 50765-9Hgvhgninv encounter BkmfEP1043-05-90V63:05:50Telephone encounter NoteTXT1.2.840.180305.1.13.104.2.7.2.28899 9|[id number] for patient fgvw91493-7LxdnKZZJGVZBDU[address] YnvlQachehxxaUktteyvbnBHKQ9222266537EGAKJT TTUGMCDORFLYNQYF1422-25-96D68:05:501.2.840 .827002.1.72.3.15|1.2.840.468119.1.13.104. 2.7.2.727879_[id number] 2023-08-03 13:09:06 5229-19-03H80:09:06Formatting of this note [facility] is different from the original.Requested Prescriptions Pending Prescriptions Disp Refills famotidine 20 mg tablet 60 tablet 0 Sig: Take 1 tablet by mouth 2 (two) times daily. VIJI: 02/18/23NOV: 08/20/23Last refilled on 06/19/23 with 5 refills. Refill requested too early per guidelines. ERMA ALLAN RN 08/03/2023 1:12 PM 90601-1Kgsswzrqw encounter BarpYC0233-94-89B27:13:09Telephone encounter NoteTXT1.2.840.167919.1.13.104.2.7.2.46141 9|[id number] for patient efbs65392-6LbdsDIGVLEFDMZ[id number] ESCWXCXRAOOWOHKB1411-78-01L40:13:091.2.840 .283185.1.72.3.15|1.2.840.714903.1.13.104. 2.7.2.727879_[id number] 2023-07-03 17:47:24 0302-67-27J95:47:24Formatting of this note [facility] might be different from the original.Patient notified and verbalized understanding 14698-9Csavsrrsr encounter EgwlSD3796-76-69I28:47:34Telephone encounter NoteTXT1.2.840.515898.1.13.104.2.7.2.34864 9|[id number] for patient vyax22777-6RhkrWEJWVPNPZY[id number] VLPXGMUTAJTSSAQD1601-29-28D43:47:341.2.840 .853213.1.72.3.15|1.2.840.721013.1.13.104. 2.7.2.727879_[id number] 2023-07-03 17:16:32 4232-07-30W77:16:32Formatting of this note [facility] might be different from the original.I send over an antibiotics for you to start 12427-4Rqxxgdpbl encounter CxufHL0852-54-83W31:16:58Telephone encounter NoteTXT1.2.840.461465.1.13.104.2.7.2.10035 9|[id number] for patient gsiz47100-5PbcnNBIPTPDQAZ[address] LqjuBvakhqmnqOtyuqzteiBOQG1358924759RLOJUD VQWMLPZVCBNZEXAW4632-03-84H09:16:581.2.840 .974550.1.72.3.15|1.2.840.321352.1.13.104. 2.7.2.727879_[id number] 2023-06-10 11:15:00 1371-17-40R85:15:00Formatting of this note [facility] is different from the original.Images from the original note were not included.Per Nina from client services CYA 2 should be sent as whole blood refrigerated.Grecia Duncan 06/10/2023 9:30 AMVenipuncture collection performed by clean technique on the right anticubitus. Total of 1 attempts were made. Slight pressure and a bandage/dressing were applied to the site(s). The patient experienced no complications. The following specimens were processed according to instructions and sent to [facility] laboratories per lab order on today: LT BLUE SST RED LAV 1 WB PPT DK GREEN (LiHep) DK GREEN (SodH) FAUSTIN DK BLUE (K2) DK BLUE (S) ACD Blood Culture NIPT/NTD 05607-1Ihrqq EctwTQ2069-83-37I91:31:41Nurse NoteTXT1.2.840.711606.1.13.104.2.7.2.29101 9|[id number] for patient [address] MehoWztgirickUoplnzqqmSIFB3423144879FLFVVC CCYXBQNGCVLHXJKB6450-63-98A81:31:411.2.840 .586356.1.72.3.15|1.2.840.690653.1.13.104. 2.7.2.727879_[id number]"
[2023-10-27 15:10] LABS: Hematocrit 30.5 % (36.0-45.0); Lymphocytes % 7.7 % (15.3-44.8); MCV 90.4 fL (80-100); MPV 7.2 fL (7.6-11.3); Platelets 199 thou/uL (152-406); RBC Red Blood Cell Count 3.37 M/uL (3.86-4.86)
[2023-10-27] MEDS ORDERED: ACETAMINOPHEN 500 MG TAB ONE (15:16)
[2023-10-27] MEDS ORDERED: NA CHLORIDE 0.9% 1,000 ML ONE (15:16)
[2023-10-27 15:30] LABS: Albumin 3.2 g/dL (3.4-5.0); Bilirubin Direct 0.3 mg/dL (0-0.2); Bilirubin Indirect, Calculated 0.7 mg/dL (0.2-0.8); Magnesium 1.4 mg/dL (1.6-2.4); Potassium 3.8 mEq/L (3.5-5.1); Troponin High Sensitivity 8.8 pg/mL (<58.9)
[2023-10-27 15:35] LABS: SARS-CoV-2 Antigen Rapid Res Negative (Negative)
[2023-10-27] MEDS ORDERED: ERYTHROMYCIN 3.5GM OPTH OINT OP SCH (15:45)
--- NOTE | 2023-10-27 15:54 | RAD REPORT ---
EXAM DESCRIPTION: Ehsan Single View10/27/2023 3:21 pm CLINICAL HISTORY: cough COMPARISON: March 2023 FINDINGS: Mild opacities mid and lower right lung Left lung appears clear of acute infiltrate Heart is mildly to moderately enlarged IMPRESSION: Mild right lung opacities may indicate mild pneumonia
[2023-10-27] MEDS ORDERED: Magnesium Sulfate 2gm IVPB 2 G/50 ML BAG IV ONE (16:16)
--- NOTE | 2023-10-27 16:24 | EDPHYS ---
Physician Documentation [facility] Name: Juhi Aguilar Age: 68 yrs Sex: Female : 1955 Arrival Date: 10/27/2023 Time: 14:12 Bed 14 Private MD: ED Physician Iraj Richardson HPI: 10/27 14:37 This 68 yrs old Female presents to ER via Wheelchair with complaints of rt Weakness. 14:37 Patient presents to the ED with generalized weakness, cough, sore throat with nausea rt starting today. The patient has had chills, subjective fever. She does not have an appetite currently has not been drinking of fluids. Symptoms are moderate in severity, no other aggravating relieving factors.. Historical: - Allergies: 14:25 Adhesives; cm10 14:25 Codeine; cm10 14:25 Iodine; cm10 14:25 sirolimus; cm10 - PMHx: 14:25 Cataracts; GERD; kidney transplant; Hypertension; hyperparathyroidism; Hyperlipidemia; cm10 Myalgia; osteoarthritis; - Immunization history:: Adult Immunizations unknown. - Social history:: Smoking status: Patient denies any tobacco usage or history of. - Family history:: not pertinent. ROS: 14:37 Cardiovascular: Negative for chest pain, palpitations, and edema, MS/Extremity: rt Negative for injury and deformity, Skin: Negative for injury, rash, and discoloration, 14:37 Constitutional: Positive for chills, fatigue, malaise, 14:37 Eyes: Positive for discharge, redness, 14:37 Respiratory: Positive for cough, Negative for shortness of breath, 14:37 Abdomen/GI: Positive for nausea, Negative for nausea, 14:37 Neuro: Positive for weakness, Negative for altered mental status, Exam: 14:37 Constitutional: This is a well developed, well nourished patient who is awake, alert, rt and in no acute distress. Head/Face: Normocephalic, atraumatic. Chest/axilla: Normal chest wall appearance and motion. Nontender with no deformity. No lesions are appreciated. Cardiovascular: Regular rate and rhythm with a normal S1 and S2. No gallops, murmurs, or rubs. Normal PMI, no JVD. No pulse deficits. Respiratory: Lungs have equal breath sounds bilaterally, clear to auscultation and percussion. No rales, rhonchi or wheezes noted. No increased work of breathing, no retractions or nasal flaring. Abdomen/GI: Soft, non-tender, with normal bowel sounds. No distension or tympany. No guarding or rebound. No evidence of tenderness throughout. Skin: Warm, dry with normal turgor. Normal color with no rashes, no lesions, and no evidence of cellulitis. MS/ Extremity: Pulses equal, no cyanosis. Neurovascular intact. Full, normal range of motion. Neuro: Awake and alert, GCS 15, oriented to person, place, time, and situation. Cranial nerves II-XII grossly intact. Motor strength 5/5 in all extremities. Sensory grossly intact. Cerebellar exam normal. Normal gait. Psych: Awake, alert, with orientation to person, place and time. Behavior, mood, and affect are within normal limits. 14:37 Eyes: Conjunctival erythema on the right eye with mucoid discharge. 14:37 ENT: No posterior pharyngeal erythema or exudates, tonsillar perjury, moist mucous membranes. 15:52 ECG was reviewed by the Attending Physician. rt Vital Signs: 14:23 BP 138 / 66; Pulse 90; Resp 18; Temp 98.9(O); Pulse Ox 96% ; Weight 67.13 kg; Height 4 cm10 ft. 11 in. ; Pain 8/10; 15:32 BP 116 / 69; Pulse 84; Resp 21; Temp 97.9(TE); Pulse Ox 97% on R/A; nj1 16:14 BP 121 / 62; Pulse 80; Resp 19; Pulse Ox 96% on R/A; nj1 17:23 BP 114 / 54; Pulse 73; Resp 18; Pulse Ox 100% ; nj1 18:32 BP 103 / 61; Pulse 74; Resp 18; Temp 97.7(TE); Pulse Ox 100% on R/A; cm10 14:23 Body Mass Index 29.89 (67.13 kg, 149.86 cm) cm10 14:23 Pain Scale: Adult cm10 MDM: 14:21 Patient medically screened. rt 16:23 Data reviewed: vital signs, nurses notes, lab test result(s), EKG, radiologic studies. rt Consideration of Admission/Observation Patient was admitted/placed on observation. Management of patient was discussed with the following: Hospitalist: Agrees to admit. I considered the following discharge prescriptions or medication management in the emergency department Medications were administered in the Emergency Department. See MAR. 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 Care significantly affected by the following chronic conditions: Chronic Kidney Disease. Counseling: I had a detailed discussion with the patient and/or guardian regarding the historical points, exam findings, and any diagnostic results supporting the discharge/admit diagnosis, lab results, radiology results, the need for further work-up and treatment in the hospital. Response to treatment: the patient's symptoms have markedly improved after treatment. ED course: Patient's initial presentation was not thought to be due to sepsis, the patient's x-ray returned as pneumonia, and combination with leukocytosis, she then met sepsis criteria, at that point, cultures, lactate, antibiotics were ordered. 10/27 14:33 Order name: Basic Metabolic Panel; Complete Time: 15:49 rt 10/27 14:33 Order name: CBC with Diff; Complete Time: 15:49 rt 10/27 14:33 Order name: LFT's; Complete Time: 15:49 rt 10/27 14:33 Order name: Magnesium; Complete Time: 15:49 rt 10/27 14:33 Order name: Troponin HS; Complete Time: 15:49 rt 10/27 14:33 Order name: Influenza Screen (a \T\ B); Complete Time: 15:49 rt 10/27 14:33 Order name: Strep; Complete Time: 15:49 rt 10/27 14:33 Order name: SARS RAPID; Complete Time: 15:49 rt 10/27 14:33 Order name: UAM rt 10/27 15:43 Order name: Throat Culture EDMS 10/27 16:07 Order name: Lactate w/ 2H reflex if indic. rt 10/27 16:07 Order name: Blood Culture Adult (2) rt 10/27 14:33 Order name: XRAY Chest (1 view); Complete Time: 15:55 rt 10/27 14:33 Order name: EKG; Complete Time: 14:34 rt 10/27 14:33 Order name: Cardiac monitoring; Complete Time: 15:32 rt 10/27 14:33 Order name: EKG - Nurse/Tech; Complete Time: 15:32 rt 10/27 14:33 Order name: IV Saline Lock; Complete Time: 14:54 rt 12 14:33 Order name: Labs collected and sent; Complete Time: 14:55 rt 12 14:33 Order name: O2 Per Protocol; Complete Time: 14:38 rt 12 14:33 Order name: O2 Sat Monitoring; Complete Time: 14:38 rt EC:52 Rate is 87 beats/min. Rhythm is regular, Normal Sinus Rhythm with No ectopy. QRS [place] rt is Normal. AR interval is normal. QRS interval is normal. QT interval is normal. No Q waves. Clinical impression: NSR w/ Non-specific ST/T Changes. Administered Medications: 15:10 Drug: NS 0.9% IV 1000 ml IV at 1 bolus Per protocol; 1000 mL bolus Route: IV; Rate: 1 nj1 bolus; Site: right antecubital; 18:31 Follow up: Response: No adverse reaction; IV Status: Completed infusion; IV Intake: nj1 1000ml 15:10 Drug: Acetaminophen PO 1000 mg PO once Route: PO; nj1 16:00 Follow up: Response: No adverse reaction; Pain is decreased nj1 16:40 Drug: Magnesium Sulfate IVPB 2 grams IVPB once over 1 hrs Route: IVPB; Infused Over: 1 nj1 hrs; Site: right antecubital; 17:40 Follow up: Response: No adverse reaction; IV Status: Completed infusion; IV Intake: 35cjwc8 17:45 Drug: Oseltamivir PO 75 mg PO once Route: PO; nj1 18:32 Follow up: Response: No adverse reaction nj1 17:47 Drug: AZITHromycin IVPB 500 mg IVPB once over 1 hrs; (mix in 250 mL NS) Route: IVPB; nj1 Infused Over: 1 hrs; Site: right antecubital; 18:47 Follow up: Response: No adverse reaction; IV Status: Completed infusion; IV Intake: nj1 250ml 17:48 Drug: Rocephin - Rocephin (cefTRIAXone) IVPB 2 grams IVPB once over 30 mins; (mix in nj1 100 mL NS) Route: IVPB; Infused Over: 30 mins; Site: left antecubital; 18:18 Follow up: Response: No adverse reaction; IV Status: Completed infusion; IV Intake: nj1 100ml 18:30 Drug: ERYTHromycin Ophthalmic Ointment 1 application Ophthalmic once Route: Ophthalmic; nj1 Site: right eye; Disposition Summary: 10/27/23 16:23 Hospitalization Ordered Notes: Hospitalization Status: Inpatient Admission rt Provider: Maicol Brown rt Location: Telemetry/MedSurg (observation) rt Condition: Stable rt Problem: new rt Symptoms: have improved rt Bed/Room Type: Standard rt Room Assignment: [facility](10/27/23 19:07) [email or web address] Diagnosis - Pneumonia rt - Sepsis rt - Influenza B rt - Generalized weakness rt - Hypomagnesemia rt Forms: - Medication Reconciliation Form rt - SBAR form rt - Leadership Thank You Letter rt Signatures: Dispatcher [employer] EDBrigid Forrest Diana, RN RN Iraj Richardson MD MD rt Doretha Eden RN RN nj1 Nereida Osei RN RN 10 Geovanna Landon 12 Corrections: (The following items were deleted from the chart) 16:56 16:23 rt 19: 16:56 222 bd 19: 19:07 [facility] [email or web address]
--- NOTE | 2023-10-27 16:24 | ER ---
Nurse's Notes [facility] Name: Juhi Aguilar Age: 68 yrs Sex: Female : 1955 Arrival Date: 10/27/2023 Time: 14:12 Bed 14 Private MD: Diagnosis: Pneumonia;Sepsis;Influenza B;Generalized weakness;Hypomagnesemia Presentation: 10/27 14:23 Chief complaint: Patient states: generalized weakness onset today. Pt also reports cm10 productive cough and redness to right eye onset today. Pt's daughter states that last week pt was sick with flu-like symptoms. Coronavirus screen: Vaccine status: Patient reports being unvaccinated. Client denies travel out of the [place] in the last 14 days. Ebola Screen: Patient denies travel to an Ebola-affected area in the 21 days before illness onset. No symptoms or risks identified at this time. Initial Sepsis Screen: Does the patient meet any 2 criteria? No. Patient's initial sepsis screen is negative. Does the patient have a suspected source of infection? No. Patient's initial sepsis screen is negative. Risk Assessment: Do you want to hurt yourself or someone else? Patient reports no desire to harm self or others. Onset of symptoms was October 27, 2023. 14:23 Method Of Arrival: Wheelchair cm10 14:23 Acuity: LUIGI 3 cm10 Historical: - Allergies: 14:25 Adhesives; cm10 14:25 Codeine; cm10 14:25 Iodine; cm10 14:25 sirolimus; cm10 - PMHx: 14:25 Cataracts; GERD; kidney transplant; Hypertension; hyperparathyroidism; Hyperlipidemia; cm10 Myalgia; osteoarthritis; - Immunization history:: Adult Immunizations unknown. - Social history:: Smoking status: Patient denies any tobacco usage or history of. - Family history:: not pertinent. Screenin:57 [facility] ED Fall Risk Assessment (Adult) Score/Fall Risk Level 0 - 2 = Low Risk nj1 Oriented to surroundings, Maintained a safe environment, Hourly rounding (assess needs \T\ fall precautionary measures) done. Abuse screen: Denies threats or abuse. Denies injuries from another. Nutritional screening: No deficits noted. Tuberculosis screening: No symptoms or risk factors identified. Assessment: 14:45 General: Appears in no apparent distress. uncomfortable, Behavior is calm, cooperative, nj1 appropriate for age. Pain: Complains of pain in head Pain currently is 5 out of 10 on a pain scale. Quality of pain is described as aching. Neuro: Level of Consciousness is awake, alert, obeys commands, Oriented to person, place, time, situation, Reports weakness. Cardiovascular: Patient's skin is warm and dry. 14:45 Respiratory: Reports cough that is since yesterday Airway is patent Respiratory effort nj1 is even, unlabored. 15:33 Reassessment: Patient appears in no apparent distress at this time. No changes from nj1 previously documented assessment. Patient and/or family updated on plan of care and expected duration. Pain level reassessed. Patient is alert, oriented x 3, equal unlabored respirations, skin warm/dry/pink. 17:23 Reassessment: Patient appears in no apparent distress at this time. Patient and/or nj1 family updated on plan of care and expected duration. Pain level reassessed. Patient is alert, oriented x 3, equal unlabored respirations, skin warm/dry/pink. Patient states feeling better. 18:28 Reassessment: Patient appears in no apparent distress at this time. Patient and/or nj1 family updated on plan of care and expected duration. Pain level reassessed. Patient is alert, oriented x 3, equal unlabored respirations, skin warm/dry/pink. Patient states feeling better. 19:10 Reassessment: Unsuccessful attempt to call report at this time. Nurse unavailable, they cm10 will call back for report. Vital Signs: 14:23 BP 138 / 66; Pulse 90; Resp 18; Temp 98.9(O); Pulse Ox 96% ; Weight 67.13 kg; Height 4 cm10 ft. 11 in. ; Pain 8/10; 15:32 BP 116 / 69; Pulse 84; Resp 21; Temp 97.9(TE); Pulse Ox 97% on R/A; nj1 16:14 BP 121 / 62; Pulse 80; Resp 19; Pulse Ox 96% on R/A; nj1 17:23 BP 114 / 54; Pulse 73; Resp 18; Pulse Ox 100% ; nj1 18:32 BP 103 / 61; Pulse 74; Resp 18; Temp 97.7(TE); Pulse Ox 100% on R/A; cm10 14:23 Body Mass Index 29.89 (67.13 kg, 149.86 cm) cm10 14:23 Pain Scale: Adult cm10 ED Course: 14:15 Patient arrived in ED. mr 14:15 Iraj Richardson MD is Attending Physician. rt 14:25 Triage completed. cm10 14:26 Arm band placed on Patient placed in an exam room, on a stretcher. cm10 14:37 Doretha Eden RN is Primary Nurse. nj1 14:45 Patient has correct armband on for positive identification. Bed in low position. Call nj1 light in reach. Side rails up X 1. Adult w/ patient. Provided Education on: call light, fall precautions. 14:45 Missed attempt(s): 22 gauge in right forearm. Bleeding controlled, band aid applied, nj1 catheter tip intact. 14:50 Inserted saline lock: 22 gauge in right antecubital area, using aseptic technique. nj1 Blood collected. 15:23 XRAY Chest (1 view) In Process Unspecified. EDMS 16:22 Maicol Brown MD is Hospitalizing Provider. rt 17:18 Inserted saline lock: 22 gauge in left antecubital area, using aseptic technique. Blood nj1 collected. 19:00 Report given to Milton SCHROEDER. nj1 19:48 No provider procedures requiring assistance completed. cm10 19:48 Patient admitted, IV remains in place. cm10 Administered Medications: 15:10 Drug: NS 0.9% IV 1000 ml IV at 1 bolus Per protocol; 1000 mL bolus Route: IV; Rate: 1 nj1 bolus; Site: right antecubital; 18:31 Follow up: Response: No adverse reaction; IV Status: Completed infusion; IV Intake: nj1 1000ml 15:10 Drug: Acetaminophen PO 1000 mg PO once Route: PO; nj1 16:00 Follow up: Response: No adverse reaction; Pain is decreased nj1 16:40 Drug: Magnesium Sulfate IVPB 2 grams IVPB once over 1 hrs Route: IVPB; Infused Over: 1 nj1 hrs; Site: right antecubital; 17:40 Follow up: Response: No adverse reaction; IV Status: Completed infusion; IV Intake: [id number] 17:45 Drug: Oseltamivir PO 75 mg PO once Route: PO; nj1 18:32 Follow up: Response: No adverse reaction nj1 17:47 Drug: AZITHromycin IVPB 500 mg IVPB once over 1 hrs; (mix in 250 mL NS) Route: IVPB; nj1 Infused Over: 1 hrs; Site: right antecubital; 18:47 Follow up: Response: No adverse reaction; IV Status: Completed infusion; IV Intake: nj1 250ml 17:48 Drug: Rocephin - Rocephin (cefTRIAXone) IVPB 2 grams IVPB once over 30 mins; (mix in nj1 100 mL NS) Route: IVPB; Infused Over: 30 mins; Site: left antecubital; 18:18 Follow up: Response: No adverse reaction; IV Status: Completed infusion; IV Intake: nj1 100ml 18:30 Drug: ERYTHromycin Ophthalmic Ointment 1 application Ophthalmic once Route: Ophthalmic; [facility] Site: right eye; Medication: 18:59 VIS not applicable for this client. nj1 Intake: 17:40 IV: 50ml; Total: 50ml. nj1 18:18 IV: 100ml; Total: 150ml. nj1 18:31 IV: 1000ml; Total: 1150ml. nj1 18:47 IV: 250ml; Total: 1400ml. nj1 Outcome: 16:23 Decision to Hospitalize by Provider. rt 19:45 Admitted to Med/surg accompanied by tech, family with patient, room 228, Report called cm10 to Rubin SCHROEDER 19:45 Condition: stable 19:45 Instructed on the need for admit, 19:51 Patient left the ED. cm10 Signatures: Dispatcher [employer] EDAL Jenna Gomez, Reg Reg Iraj Roldan MD MD rt Doretha Eden RN RN nj1 Nereida Osei RN RN cm10 Corrections: (The following items were deleted from the chart) 18:34 18:32 BP 103 / 61; Pulse 18bpm; Resp 74bpm; Pulse Ox 100% RA; nj1 nj1 19:13 18:32 BP 103 / 61; Pulse 18bpm; Resp 74bpm; Pulse Ox 100% RA; Temp 97.7F Temporal; nj1 cm10
[2023-10-27] MEDS ORDERED: ACETAMINOPHEN 500 MG TAB PO PRN (16:53)
[2023-10-27] MEDS ORDERED: IPRATROPIUM BROM 0.5MG/2.5ML NEB PRN (16:53)
[2023-10-27] MEDS ORDERED: ALBUTEROL 2.5 MG/3 ML NEB SOL NEB PRN (16:53)
[2023-10-27] MEDS ORDERED: ONDANSETRON 4 MG/2 ML VIAL IV PRN (17:02)
[2023-10-27] MEDS ORDERED: MORPHINE 2 MG/ML SYR IV PRN (17:05)
[2023-10-27] MEDS ORDERED: SODIUM CHLORIDE 0.9% 10ML INJ IV PRN (17:05)
--- NOTE | 2023-10-27 17:17 | P.HP ---
Certification for Inpatient With expected LOS: <2 Midnights <Gray Morley - Last Filed: 10/27/23 17:33> Patient History Date of Service: 10/27/23 Reason for admission: Generalized weakness, Pneumonia, Influenze B History of Present Illness: Ms. Aguilar 68-year-old female patient with a history of kidney transplant on immunosuppressive, GERD, hypertension, hyperparathyroidism, hyperlipidemia, osteoarthritis presented to ER via wheelchair with complaints of weakness. Patient had a chills, subjective fever. She reports that she has loss of appetite, and did not drinking fluid. Symptoms are moderate in severity and symptoms are not aggravating or relieving by any thing. Patient denies chest pain, shortness of breath, palpitation. Patient denies abdominal pain but reports having nausea. ED course Vital signs blood pressure 138/66, pulse 90, respiration 18, temperature 98.9, pulse ox 96%, no reports of pain at this time. EKG showing normal sinus rhythm rate of 87 bpm Patient labs showing leukocytosis WBC 12.7, BUN 20, creatinine 1.38, GFR 42, low magnesium 1.4 chest x-ray showing mild right lower lobe opacities indicate a mild pneumonia. Admitting the patient with the diagnosis of pneumonia, sepsis, influenza B positive, generalized weakness, and hypomagnesemia. - Past Medical/Surgical History Has patient received pneumonia vaccine in the past: Yes Diabetic: Yes -: ESRD-S/P RENAL TRANSPLANT -: hyperlipidemia -: hypertension -: myalgia -: osteoarthritis -: cataracts -: GERD -: RENAL TRANSPLANT -: Bilateral hip replacement 2009 Psychosocial/ Personal History: Lives at home with family - Family History Father -: Heart disease - Social History Smoking Status: Never smoker Alcohol use: No CD- Drugs: No Caffeine use: Yes Place of Residence: Home <Gray Morley - Last Filed: 10/27/23 17:33> Date of Service: 10/27/23 <Maicol Brown - Last Filed: 10/27/23 18:27> Allergies adhesive tape Allergy (Verified 03/26/23 17:31) Itching/Hives/Rash iodine Allergy (Verified 03/26/23 17:31) Nausea/Vomiting sirolimus Allergy (Verified 03/26/23 17:31) Itching/Hives/Rash Home Medications: Calcitrol [Rocaltrol*] 1 cap PO DAILY 04/13/19 Calcium Carbonate 650 mg PO DAILY 04/13/19 Cyclosporine [Restasis] 1 drop EACH EYE BID 04/13/19 Famotidine [Pepcid*] 20 mg PO BIDAC 04/13/19 Glipizide [Glipizide ER] 2 tab PO DAILY 04/13/19 Omeprazole 1 cap PO BREAKFAST 04/13/19 Spironolactone 25 mg PO DAILY 04/13/19 cycloSPORINE [Sandimmune] 25 mg PO BID 04/13/19 predniSONE [Prednisone] 5 mg PO DAILY 04/13/19 Albuterol Sulfate [Proair Hfa] 2 puff IH Q6HP PRN 03/26/23 Fluticasone/Vilanterol [Breo Ellipta 100-25 Mcg Inhalr] 1 puff IH DAILY 03/26/23 Furosemide [Lasix*] 1 tab PO BID 03/26/23 Glipizide [Glipizide ER] 1 tab PO DAILY AT SUPPER 03/26/23 Irbesartan 1 tab PO BEDTIME 03/26/23 Montelukast [Singulair*] 1 tab PO BEDTIME 03/26/23 Mycophenolate Sodium [Myfortic] 3 tab PO BID 03/26/23 Pnv,Calcium 72/Iron/Folic Acid [Westab Plus Tablet] 1 tab PO DAILY 03/26/23 Promethazine Tab [Phenergan*] 12.5 mg PO Q6HP PRN 03/26/23 Rosuvastatin [Crestor*] 5 mg PO BEDTIME 03/26/23 Tiotropium [Spiriva Handihaler*] 1 puff IH DAILY 03/26/23 carvediloL [Coreg*] 1 tab PO BID 03/26/23 levoFLOXacin [Levaquin] 750 mg PO DAILY #5 tab 03/28/23 Review of Systems 10-point ROS is otherwise unremarkable <Gray Morley - Last Filed: 10/27/23 17:33> Physical Examination - Physical Exam General: Alert, In no apparent distress, Oriented x3, Other HEENT: Atraumatic, Normocephalic, PERRLA Neck: Supple Respiratory: Clear to auscultation bilaterally Cardiovascular: No edema, Normal pulses, Regular rate/rhythm Capillary refill: <2 Seconds Gastrointestinal: Normal bowel sounds, Soft and benign Musculoskeletal: No clubbing, No swelling, No contractures Integumentary: No breakdown Neurological: Normal speech, Normal tone, Normal affect - Studies Laboratory Data (last 24 hrs) 10/27/23 10/27/23 14:50 14:50 WBC 12.70 H Hgb 10.4 L Hct 30.5 L Plt Count 199 Sodium 133 L Potassium 3.8 BUN 20 H Creatinine 1.38 H Glucose 176 H Magnesium 1.4 L Total Bilirubin 1.0 AST 6 L ALT 15 Alkaline Phosphatase 66 Microbiology Data (last 24 hrs): 10/27/23 15:10 Throat Group A Streptococcus Rapid Screen - Final 10/27/23 15:10 Nasopharnyx Influenza Type A Antigen Screen - Final 10/27/23 15:10 Nasopharnyx Influenza Type B Antigen Screen - Final <Gray Morley - Last Filed: 10/27/23 17:33> - Studies Laboratory Data (last 24 hrs) 10/27/23 10/27/23 14:50 14:50 WBC 12.70 H Hgb 10.4 L Hct 30.5 L Plt Count 199 Sodium 133 L Potassium 3.8 BUN 20 H Creatinine 1.38 H Glucose 176 H Magnesium 1.4 L Total Bilirubin 1.0 AST 6 L ALT 15 Alkaline Phosphatase 66 Microbiology Data (last 24 hrs): 10/27/23 15:10 Throat Group A Streptococcus Rapid Screen - Final 10/27/23 15:10 Nasopharnyx Influenza Type A Antigen Screen - Final 10/27/23 15:10 Nasopharnyx Influenza Type B Antigen Screen - Final <Maicol Brown - Last Filed: 10/27/23 18:27> Assessment and Plan - Problems (Diagnosis) (1) Pneumonia Current Visit: Yes Status: Acute Qualifiers: Pneumonia type: due to unspecified organism Laterality: right Lung location: lower lobe of lung Qualified Code(s): J18.9 - Pneumonia, unspecified organism (2) Sepsis Current Visit: Yes Status: Acute Qualifiers: Sepsis type: sepsis due to unspecified organism Sepsis acute organ dysfunction status: without acute organ dysfunction Qualified Code(s): A41.9 - Sepsis, unspecified organism (3) Sepsis Current Visit: Yes Status: Acute Qualifiers: Sepsis type: sepsis due to unspecified organism Sepsis acute organ dysfunction status: without acute organ dysfunction Qualified Code(s): A41.9 - Sepsis, unspecified organism (4) Influenza B Current Visit: Yes Status: Acute (5) History of renal transplant Current Visit: Yes Status: Chronic (6) Hypomagnesemia Current Visit: Yes Status: Acute (7) Generalized weakness Current Visit: Yes Status: Acute (8) Status post recent immunosuppressive therapy Current Visit: No Status: Acute - Plan -SIRS likely secondary to pneumonia Patient meets SIRS criteria based on , WBC > 12,000 and the suspected source is lungs. - Sepsis order set was initiated - Initial Lactate was 1.0 trend - Blood cultures drawn before antibiotics were given , we will adjust abx based on culrture results. - Broad spectrum antibiotics started -Influenz B- Oseltamivir 75mg po bis started -Isolation precautions -Magnesium replacement s per proctocol, recheck mag in am -IV hydration statred -Nephrology consult due mike/o renal transplant -Reconsile the home meds -Vitals stable, we will continue to monitor closely. -Code status- Full code -DVT prophylaxis_ Heparin -Diet- Renal Discharge Plan: Home Plan to discharge in: 48 Hours - Advance Directives Does patient have a Living Will: No Does patient have a Durable POA for Healthcare: No - Code Status/Comfort Care Code Status Assessed: Yes (full code) Code Status: Full Code Physician Review: Patient Assessed, Agree with Above Assessment and Plan Critical Care: No Time Spent Managing Pts Care (In Minutes): 55 <Gray Morley - Last Filed: 10/27/23 17:33> Physician Review Additional Text: Pt seen and examined. I agree withe note by the HOSE SPRAYER. Pt is 68 yo femalw with past medical history of osteoporosis, DM, Htn, and renal transplant who presents with cough, fatigue and loss of appetite. She denies any sick contact. On admission, lab studies show positive flu test and LLL pneumonia on CXR. A/P Will continue rocephin and azithro for pneumonia. Follow up blood cx. Continue tamiflu for flu. Her symptoms started this am. <Maicol Brown - Last Filed: 10/27/23 18:27>
[2023-10-27 17:19] LABS: Specific Gravity 1.023 (1.005-1.030); Urine Bacteria <20 /HPF (<20); Urine Bilirubin NEGATIVE (Negative); Urine Blood Trace (Negative); Urine Clarity Extremely Turbid (Clear); Urine Color Yellow (Yellow); Urine Crystals Unidentified Few /HPF (None Seen); Urine Glucose TRACE (Negative); Urine Mucus 2+ /HPF (None Seen); Urine Protein 2+ (Negative); Urine Urobilinogen Normal (Normal); Urine WBC Clump Rare /HPF (None Seen); Urine pH 5.5 (5.0-7.0)
[2023-10-27] MEDS ORDERED: OSELTAMIVIR 75 MG CAP PO ONE (17:45)
[2023-10-27] MEDS ORDERED: NA CHLORIDE 0.9% 250 ML ONE (17:46)
[2023-10-27] MEDS ORDERED: NA CHLORIDE 0.9% 100 ML ONE (17:46)
[2023-10-27] MEDS ORDERED: AZITHROMYCIN 500 MG INJ IVPB ONE (17:46)
[2023-10-27] MEDS ORDERED: CEFTRIAXONE 2000 MG/VIAL ONE (17:46)
--- NOTE | 2023-10-27 17:55 | P.CNS ---
Date of Consult: 10/27/23 Reason for Consult: CKD III/ Renal Transplant Requesting Physician: Maicol Brown Chief Complaint: Generalized weakness, Pneumonia, Influenze B History of Present Illness: Ms. Aguilar 68-year-old female patient with a history of kidney transplant on immunosuppressive, GERD, hypertension, hyperparathyroidism, hyperlipidemia, osteoarthritis presented to ER via wheelchair with complaints of weakness. Patient had a chills, subjective fever. She reports that she has loss of appetite, and did not drinking fluid. Symptoms are moderate in severity and symptoms are not aggravating or relieving by any thing. Patient denies chest pain, shortness of breath, palpitation. Patient denies abdominal pain but reports having nausea. ED course Vital signs blood pressure 138/66, pulse 90, respiration 18, temperature 98.9, pulse ox 96%, no reports of pain at this time. EKG showing normal sinus rhythm rate of 87 bpm Patient labs showing leukocytosis WBC 12.7, BUN 20, creatinine 1.38, GFR 42, low magnesium 1.4 chest x-ray showing mild right lower lobe opacities indicate a mild pneumonia. Admitting the patient with the diagnosis of pneumonia, sepsis, influenza B positive, generalized weakness, and hypomagnesemia. 14:37 This 68 yrs old Female presents to ER via Wheelchair with complaints of rt Weakness. 14:37 Patient presents to the ED with generalized weakness, cough, sore throat with nausea rt starting today. The patient has had chills, subjective fever. She does not have an appetite currently has not been drinking of fluids. Symptoms are moderate in severity, no other aggravating relieving factors. Allergies adhesive tape Allergy (Verified 03/26/23 17:31) Itching/Hives/Rash iodine Allergy (Verified 03/26/23 17:31) Nausea/Vomiting sirolimus Allergy (Verified 03/26/23 17:31) Itching/Hives/Rash Home medications list reviewed: Yes Home Medications: Calcitrol [Rocaltrol*] 1 cap PO DAILY 04/13/19 Calcium Carbonate 650 mg PO DAILY 04/13/19 Famotidine [Pepcid*] 20 mg PO BIDAC 04/13/19 Glipizide [Glipizide ER] 2 tab PO DAILY 04/13/19 Omeprazole 1 cap PO BREAKFAST 04/13/19 Spironolactone 25 mg PO DAILY 04/13/19 cycloSPORINE [Sandimmune] 25 mg PO BID 04/13/19 predniSONE [Prednisone] 5 mg PO DAILY 04/13/19 Albuterol Sulfate [Proair Hfa] 2 puff IH Q6HP PRN 03/26/23 Furosemide [Lasix*] 1 tab PO BID PRN 03/26/23 Glipizide [Glipizide ER] 2 tab PO DAILY AT SUPPER 03/26/23 Irbesartan 1 tab PO BEDTIME 03/26/23 Montelukast [Singulair*] 1 tab PO BEDTIME 03/26/23 Mycophenolate Sodium [Myfortic] 3 tab PO BID 03/26/23 Pnv,Calcium 72/Iron/Folic Acid [Westab Plus Tablet] 1 tab PO DAILY 03/26/23 Promethazine Tab [Phenergan*] 12.5 mg PO Q6HP PRN 03/26/23 Rosuvastatin [Crestor*] 5 mg PO BEDTIME 03/26/23 carvediloL [Coreg*] 1 tab PO BID 03/26/23 Cyclosporine [Restasis] 1 drop EACH EYE Q12HR 10/28/23 Fluticasone/Vilanterol [Breo Ellipta 100-25 Mcg INH] 1 each IH DAILY 10/28/23 Umeclidinium [place] [Incruse Ellipta] 62.5 mcg IH DAILY 10/28/23 - Past Medical/Surgical History Diabetic: Yes -: ESRD-S/P RENAL TRANSPLANT -: HLD -: HTN -: DM II with CKD -: CKD III with Proteinuria (Dr. Morataya/ Dr. Do) -: GERD -: cataracts -: RENAL TRANSPLANT -: Bilateral hip replacement 2009 Psychosocial/ Personal History: Lives at home with family - Family History Father Medical History: Heart disease - Social History Smoking Status: Never smoker Alcohol use: No CD- Drugs: No Caffeine use: Yes Place of Residence: Home Review of Systems 10-point ROS is otherwise unremarkable General: Weakness, Malaise Physical Examination General: In no apparent distress, Cooperative HEENT: Atraumatic Neck: Supple Respiratory: Normal air movement Cardiovascular: No edema, Regular rate/rhythm Gastrointestinal: Soft and benign, Non-distended Musculoskeletal: No clubbing, No contractures Integumentary: No rashes, No cyanosis Neurological: Normal speech Laboratory Data (last 24 hrs) 10/27/23 10/27/23 14:50 14:50 WBC 12.70 H Hgb 10.4 L Hct 30.5 L Plt Count 199 Sodium 133 L Potassium 3.8 BUN 20 H Creatinine 1.38 H Glucose 176 H Magnesium 1.4 L Total Bilirubin 1.0 AST 6 L ALT 15 Alkaline Phosphatase 66 Imagings Data: EXAM DESCRIPTION: [place] Single View10/27/2023 3:21 pm CLINICAL HISTORY: cough COMPARISON: March 2023 FINDINGS: Mild opacities mid and lower right lung Left lung appears clear of acute infiltrate Heart is mildly to moderately enlarged IMPRESSION: Mild right lung opacities may indicate mild pneumonia Conclusions/Impression: CKD III with Proteinuria -Continue IVF with NS Renal Transplant Status -Resume prednisone at stress dose; will taper as tolerated Hyponatremia -Continue IVF with NS Hypomagnesemia -Replete as ordered HTN with CKD -Hold antihypertensives at this time DM II with CKD -RISS Anemia in chronic illness -Monitor H&H Acute Cystitis with Hematuria -Follow up culture -Continue abx Case reviewed with hospitalist team Thank you kindly for the consultation
[2023-10-27] MEDS: AZITHROMYCIN IV 500 MG in NA CHLORIDE 0.9% 250 ML IVPB SCH (18:00)
[2023-10-27] MEDS: ALBUTEROL 2.5 MG/3 ML NEB SOL NEB SCH (19:00)
[2023-10-27] MEDS: IPRATROPIUM BROM 0.5MG/2.5ML NEB SCH (20:52)
[2023-10-27] MEDS: INSULIN REGULAR (HUMAN) 100 UNIT/ML SQ SCH (21:00)
[2023-10-27] MEDS: OSELTAMIVIR 75 MG CAP PO SCH (21:00)
[2023-10-27 21:13] LABS: Thyroid Stimulating Hormone 0.873 uIU/mL (0.358-3.740)
[2023-10-27] MEDS: MAGNESIUM CHLORIDE 64 MG TAB PO SCH (21:40)
[2023-10-27] MEDS: CEFTRIAXONE 1,000 MG in NA CHLORIDE 0.9% 50 ML IVPB SCH (21:49)
[2023-10-27] MEDS: NA CHLORIDE 0.9% 1,000 ML IV SCH (21:49)
[2023-10-27 23:00] VITALS: BMI 29.2
[2023-10-28] MEDS: HEPARIN 5000 UNIT/ML 1 ML VIAL SQ SCH ×3 (00:26→16:40)
[2023-10-28 02:12] LABS: Absolute Lymphocytes (CBC) 0.8 K/uL (0.7-4.9); Hematocrit 25.5 % (36.0-45.0); Lymphocytes % 7.5 % (15.3-44.8); MCV 91.2 fL (80-100); MPV 7.8 fL (7.6-11.3); Platelets 185 thou/uL (152-406)
[2023-10-28 02:32] LABS: Magnesium 2.5 mg/dL (1.6-2.4); Phosphorus 2.5 mg/dL (2.5-4.9); Potassium 3.8 mEq/L (3.5-5.1); Uric Acid 6.5 mg/dL (2.6-6.0)
[2023-10-28] MEDS: ALBUTEROL 2.5 MG/3 ML NEB SOL NEB SCH ×4 (02:41→19:00)
[2023-10-28] MEDS: IPRATROPIUM BROM 0.5MG/2.5ML NEB SCH ×4 (02:41→19:00)
[2023-10-28 02:49] LABS: Blood Morphology Comment NOT SEEN (NOT SEEN); Platelet Estimate ADEQ
[2023-10-28] MEDS: INSULIN REGULAR (HUMAN) 100 UNIT/ML SQ SCH ×4 (07:30→21:00)
[2023-10-28] MEDS ORDERED: predniSONE 10 MG TAB PO SCH (08:00)
[2023-10-28] MEDS: predniSONE 10 MG TAB PO SCH (08:00)
[2023-10-28] MEDS: MAGNESIUM CHLORIDE 64 MG TAB PO SCH ×2 (09:00→20:17)
[2023-10-28] MEDS ORDERED: POTASSIUM CL SA 10 MEQ TAB PO ONE (09:00)
[2023-10-28] MEDS ORDERED: DRISDOL (VITAMIN D=ERGOCALCIFEROL) 50000 UNIT CAP PO SCH (09:00)
[2023-10-28] MEDS ORDERED: POTASS/SODIUM PHOSPHATE 1 PKT POWD.PACK PO ONE (09:00)
--- NOTE | 2023-10-28 09:21 | P.PN ---
Subjective Date of Service: 10/28/23 Chief Complaint: Generalized weakness, Pneumonia, Influenze B Subjective: Tolerating diet, Improving, Doing well Patient is alert and orientedx 3 Breathing normal at room air Vitals stable Denies any pain or discomfort. <MorleyGray garcia - Last Filed: 10/28/23 09:06> Date of Service: 10/28/23 <StephanieEnderjose m Varela - Last Filed: 10/28/23 15:07> Review of Systems 10-point ROS is otherwise unremarkable <MorleyGray - Last Filed: 10/28/23 09:06> Physical Examination - Vital Signs Temperature: 99.5 F Blood Pressure: 124/66 Pulse: 73 Respirations: 16 Pulse Ox (%): 95 - Physical Exam General: Alert, Oriented x3 HEENT: Atraumatic, Normocephalic Neck: Supple, 2+ carotid pulse no bruit Respiratory: Clear to auscultation bilaterally, Normal air movement Cardiovascular: No edema, Normal pulses Capillary refill: <2 Seconds Gastrointestinal: Normal bowel sounds, Non-distended Musculoskeletal: No clubbing, No swelling Integumentary: No rashes, No breakdown Neurological: Normal gait, Normal speech, Normal tone - Studies Laboratory Data (last 24 hrs) 10/27/23 10/27/23 14:50 14:50 WBC 12.70 H Hgb 10.4 L Hct 30.5 L Plt Count 199 Sodium 133 L Potassium 3.8 BUN 20 H Creatinine 1.38 H Glucose 176 H Magnesium 1.4 L Total Bilirubin 1.0 AST 6 L ALT 15 Alkaline Phosphatase 66 Microbiology Data (last 24 hrs): 10/27/23 15:10 Throat Group A Streptococcus Rapid Screen - Final 10/27/23 15:10 Nasopharnyx Influenza Type A Antigen Screen - Final 10/27/23 15:10 Nasopharnyx Influenza Type B Antigen Screen - Final <MorleyGray - Last Filed: 10/28/23 09:06> - Studies Laboratory Data (last 24 hrs) 10/27/23 10/27/23 14:50 14:50 WBC 12.70 H Hgb 10.4 L Hct 30.5 L Plt Count 199 Sodium 133 L Potassium 3.8 BUN 20 H Creatinine 1.38 H Glucose 176 H Magnesium 1.4 L Total Bilirubin 1.0 AST 6 L ALT 15 Alkaline Phosphatase 66 Microbiology Data (last 24 hrs): 10/27/23 15:10 Throat Group A Streptococcus Rapid Screen - Final 10/27/23 15:10 Nasopharnyx Influenza Type A Antigen Screen - Final 10/27/23 15:10 Nasopharnyx Influenza Type B Antigen Screen - Final <Maicol Brown - Last Filed: 10/28/23 15:07> Assessment And Plan - Current Problems (Diagnosis) (1) Pneumonia Current Visit: Yes Status: Acute (2) Sepsis Current Visit: Yes Status: Acute Qualifiers: Sepsis type: sepsis due to unspecified organism Sepsis acute organ dysfunction status: without acute organ dysfunction Qualified Code(s): A41.9 - Sepsis, unspecified organism (3) Influenza B Current Visit: Yes Status: Acute (4) History of renal transplant Current Visit: Yes Status: Chronic (5) Hypomagnesemia Current Visit: Yes Status: Acute (6) Generalized weakness Current Visit: Yes Status: Acute (7) Status post recent immunosuppressive therapy Current Visit: No Status: Acute (8) Benign hypertension with CKD (chronic kidney disease) stage III Current Visit: Yes Status: Chronic (9) Anemia in CKD (chronic kidney disease) Current Visit: Yes Status: Chronic Qualifiers: Chronic kidney disease stage: stage 3 (moderate) Chronic kidney disease stage 3 subtype: stage 3b (GFR 30-44) Qualified Code(s): N18.32 - Chronic kidney disease, stage 3b; D63.1 - Anemia in chronic kidney disease (10) DM type 2 (diabetes mellitus, type 2) Current Visit: Yes Status: Chronic Qualifiers: Diabetes mellitus tank terminal gauger insulin use: without tank terminal gauger use Diabetes mellitus complication status: with diabetic arthropathy Diabetes mellitus complication detail: with other arthropathy Qualified Code(s): E11.618 - Type 2 diabetes mellitus with other diabetic arthropathy (11) Acute cystitis with hematuria Current Visit: Yes Status: Acute - Plan -Sepsis: Improving, afebrile, vital stable. -WBS 10.6 today -Continue the antibiotic, IV hydration -Pending Blood cultures Influenz B -On oseltamivir 75mg po twice daily -Isolation precautions Anemia in chronic illness -Chronic worsening. Hgb 8.7, hct 25.5 no signs of bleeding -Monitor H&H CKD III , Renal Transplant -Continue IVF with NS, bun 25.cre 1.35, GFR 43 -Magnesium replacement s per proctocol - health information technician is following HTN with CKD 3 -Continue to monitor -Hold antihypertensives at this time -DM II with CKD -Chronic, controlled . Monitor BS Ac&yhs witl low dose insulin -Hypoglycemia precautions -Continue IVF with NS, bun 25.cre 1.35, GFR 43 Acute Cystitis with Hematuria -Follow up culture -Continue abx -Code status- Full code -DVT prophylaxis_ Heparin -Diet- Renal Discharge Plan: Home Plan to discharge in: 24 Hours - Code Status/Comfort Care Code Status Assessed: Yes (Full code) Code Status: Full Code Physician Review: Patient Assessed, Agree with Above Assessment and Plan Critical Care: No <Gray Morley - Last Filed: 10/28/23 09:06> Physician Review Additional Text: 10/28/23 14:58 Pt seen and examined. I agree with the note by the ASSOCIATE DIRECTOR OF SALES. Pt is feeling better. Continue iv abx, tamiflu and IVF. <Maicol Brown - Last Filed: 10/28/23 15:07>
[2023-10-28] MEDS: NA CHLORIDE 0.9% 1,000 ML IV SCH ×2 (10:29→22:09)
[2023-10-28] MEDS: PANTOPRAZOLE 40 MG INJ IVP SCH (10:30)
[2023-10-28] MEDS: OSELTAMIVIR 75 MG CAP PO SCH (10:31)
[2023-10-28] MEDS: CEFTRIAXONE 1,000 MG in NA CHLORIDE 0.9% 50 ML IVPB SCH ×2 (10:33→20:17)
[2023-10-28] MEDS: AZITHROMYCIN IV 500 MG in NA CHLORIDE 0.9% 250 ML IVPB SCH (10:35)
[2023-10-28] MEDS: OSELTAMIVIR 30 MG CAP PO SCH (20:17)
--- NOTE | 2023-10-28 21:30 | P.PN ---
Date of Service: 10/28/23 Vital Signs Temp Pulse Resp BP Pulse Ox 97.6 F 68 15 127/69 98 10/28/23 20:00 10/28/23 20:00 10/28/23 20:00 10/28/23 20:00 10/28/23 20:00 Medications Acetaminophen (Acetaminophen 500 Mg Tab) 500 mg PO Q6H PRN PRN Reason: Pain scale 2-4 (Mild) Albuterol Sulfate (Albuterol 2.5 Mg/3 Ml Neb Sherrie) 2.5 mg NEB Q4OATBM PRN PRN Reason: WHEEZING Albuterol Sulfate (Albuterol 2.5 Mg/3 Ml Neb Sherrie) 2.5 mg NEB [id number] [facility]ENG Last Admin: 10/28/23 13:44 Dose: 2.5 mg Ergocalciferol (Drisdol (Vitamin D=Ergocalciferol) 90300 Unit Cap) 50,000 unit PO Q48H [facility]ENG Stop: 10/30/23 09:01 Last Admin: 10/28/23 09:00 Dose: Not Given Heparin Sodium (Porcine) (Heparin 5000 Unit/Ml 1 Ml Vial) 5,000 unit SQ Q8HR [facility]ENG Last Admin: 10/28/23 16:40 Dose: 5,000 unit Ceftriaxone Sodium 1,000 mg/ (Sodium Chloride) 50 mls @ 100 mls/hr IVPB BID [facility]ENG; Protocol Last Admin: 10/28/23 20:17 Dose: 50 mls Azithromycin 500 mg/ Sodium (Chloride) 250 mls @ 250 mls/hr IVPB DAILY [facility]ENG; Protocol Last Admin: 10/28/23 10:35 Dose: 250 mls Sodium Chloride (Ns 1000 Ml Ivbag) 1,000 mls @ 100 mls/hr IV .Q10H [facility] Last Admin: 10/28/23 10:29 Dose: 1,000 mls Insulin Human Regular (Insulin Regular (Human) 100 Unit/Ml) 0 unit SQ ACHS MENG; Protocol Last Admin: 10/28/23 16:30 Dose: Not Given Ipratropium [place]k (Ipratropium Brom 0.5mg/2.5ml) 0.5 mg NEB [id number] PRN PRN Reason: WHEEZING Ipratropium [place]k (Ipratropium Brom 0.5mg/2.5ml) 0.5 mg NEB [id number] [facility]ENG Last Admin: 10/28/23 13:44 Dose: 0.5 mg Magnesium Chloride (Magnesium Chloride 64 Mg Tab) 128 mg PO BID [facility] Last Admin: 10/28/23 20:17 Dose: 128 mg Morphine Sulfate (Morphine 2 Mg/Ml Syr) 2 mg IV Q6H PRN PRN Reason: Pain scale 8-10 (Severe) Ondansetron HCl (Ondansetron 4 Mg/2 Ml Vial) 4 mg IV Q6HP PRN PRN Reason: NAUSEA / VOMITING Oseltamivir Phosphate (Oseltamivir 30 Mg Cap) 30 mg PO BID [facility] Stop: 11/01/23 09:01 Last Admin: 10/28/23 20:17 Dose: 30 mg Pantoprazole Sodium (Pantoprazole 40 Mg Inj) 40 mg IVP DAILY [facility]; Protocol Last Admin: 10/28/23 10:30 Dose: 40 mg Prednisone (Prednisone 10 Mg Tab) 15 mg PO Q24H [facility] Last Admin: 10/28/23 08:00 Dose: Not Given Sodium Chloride (Sodium Chloride 0.9% 10ml Inj) 10 ml IV UD PRN PRN Reason: Diluant Microbiology Results 10/27/23 16:40 Blood - Blood Aerobic Blood Culture - Preliminary No growth in 24 hours. 10/27/23 16:40 Blood - Blood Anaerobic Blood Culture - Preliminary No growth in 24 hours. 10/27/23 15:10 Throat Group A Streptococcus Rapid Screen - Final 10/27/23 15:10 Nasopharnyx Influenza Type A Antigen Screen - Final 10/27/23 15:10 Nasopharnyx Influenza Type B Antigen Screen - Final Assessment/ Plan: Nephrology No dyspnea. RIVERA No chest pain Fatigue and weakness No acute events overnight Vitals, medications, blood work and imaging reviewed in the chart. Physical Examination General: In no apparent distress, Cooperative HEENT: Atraumatic Neck: Supple Respiratory: Normal air movement Cardiovascular: No edema, Regular rate/rhythm Gastrointestinal: Soft and benign, Non-distended Musculoskeletal: No clubbing, No contractures Integumentary: No rashes, No cyanosis Neurological: Normal speech Laboratory Data (last 24 hrs) 10/27/23 10/27/23 14:50 14:50 WBC 12.70 H Hgb 10.4 L Hct 30.5 L Plt Count 199 Sodium 133 L Potassium 3.8 BUN 20 H Creatinine 1.38 H Glucose 176 H Magnesium 1.4 L Total Bilirubin 1.0 AST 6 L ALT 15 Alkaline Phosphatase 66 Imagings Data: EXAM DESCRIPTION: Ehsan Single View10/27/2023 3:21 pm CLINICAL HISTORY: cough COMPARISON: March 2023 FINDINGS: Mild opacities mid and lower right lung Left lung appears clear of acute infiltrate Heart is mildly to moderately enlarged IMPRESSION: Mild right lung opacities may indicate mild pneumonia Conclusions/Impression: CKD III with Proteinuria -Continue IVF with NS Renal Transplant Status -Continue prednisone at stress dose; will taper as tolerated Hyponatremia -Continue IVF with NS Hypomagnesemia -Replete as ordered HTN with CKD -Hold antihypertensives at this time DM II with CKD -RISS Anemia in chronic illness -Monitor H&H Acute Cystitis with Hematuria -Follow up culture -Continue abx Case reviewed with hospitalist team
[2023-10-29] MEDS: HEPARIN 5000 UNIT/ML 1 ML VIAL SQ SCH ×2 (00:22→11:28)
[2023-10-29] MEDS: IPRATROPIUM BROM 0.5MG/2.5ML NEB SCH ×2 (00:50→07:41)
[2023-10-29] MEDS: ALBUTEROL 2.5 MG/3 ML NEB SOL NEB SCH ×2 (00:50→07:41)
[2023-10-29 02:25] LABS: Absolute Lymphocytes (CBC) 0.9 K/uL (0.7-4.9); Hematocrit 24.8 % (36.0-45.0); Lymphocytes % 11.8 % (15.3-44.8); MCV 92.6 fL (80-100); Platelets 176 thou/uL (152-406); RBC Red Blood Cell Count 2.68 M/uL (3.86-4.86)
[2023-10-29 03:06] LABS: Potassium 4.1 mEq/L (3.5-5.1)
[2023-10-29] MEDS: INSULIN REGULAR (HUMAN) 100 UNIT/ML SQ SCH (07:30)
[2023-10-29] MEDS: predniSONE 10 MG TAB PO SCH ×2 (08:00→09:46)
[2023-10-29] MEDS ORDERED: SODIUM BICARB 325 MG TAB PO SCH (09:00)
[2023-10-29] MEDS ORDERED: MAGNESIUM CHLORIDE 64 MG TAB PO SCH (09:00)
[2023-10-29] MEDS: PANTOPRAZOLE 40 MG INJ IVP SCH (09:46)
[2023-10-29] MEDS: CEFTRIAXONE 1,000 MG in NA CHLORIDE 0.9% 50 ML IVPB SCH (09:47)
[2023-10-29] MEDS ORDERED: Ringers Lactate 1,000 ML IV SCH (10:00)
[2023-10-29 10:22] LABS: Specific Gravity 1.009 (1.005-1.030); Urine Bilirubin NEGATIVE (Negative); Urine Blood Negative (Negative); Urine Clarity Clear (Clear); Urine Color Colorless (Yellow); Urine Glucose NEGATIVE (Negative); Urine Protein NEGATIVE (Negative); Urine Urobilinogen Normal (Normal); Urine pH 5.5 (5.0-7.0)
[2023-10-29 10:28] VITALS: O2SAT 98
[2023-10-29] MEDS: AZITHROMYCIN IV 500 MG in NA CHLORIDE 0.9% 250 ML IVPB SCH (11:09)
[2023-10-29] MEDS: OSELTAMIVIR 30 MG CAP PO SCH (11:12)
[2023-10-29] MEDS ORDERED: ACETAMINOPHEN 500 MG TAB PO PRN (11:55)
[2023-10-29] MEDS ORDERED: ALBUTEROL 2.5 MG/3 ML NEB SOL NEB PRN (11:56)
[2023-10-29] MEDS ORDERED: IPRATROPIUM BROM 0.5MG/2.5ML NEB PRN (11:58)
[2023-10-29] MEDS ORDERED: SODIUM CHLORIDE 0.9% 10ML INJ IV PRN (12:00)
[2023-10-29] MEDS ORDERED: MORPHINE 2 MG/ML SYR IV PRN (12:00)
[2023-10-29] MEDS ORDERED: predniSONE 10 MG TAB PO SCH (12:00)
[2023-10-29] MEDS ORDERED: ONDANSETRON 4 MG/2 ML VIAL IV PRN (12:00)
[2023-10-29] MEDS ORDERED: ALBUTEROL 2.5 MG/3 ML NEB SOL NEB SCH (13:00)
[2023-10-29] MEDS ORDERED: IPRATROPIUM BROM 0.5MG/2.5ML NEB SCH (13:00)
[2023-10-29] MEDS ORDERED: INSULIN REGULAR (HUMAN) 100 UNIT/ML SQ SCH (16:30)
[2023-10-29] MEDS ORDERED: HEPARIN 5000 UNIT/ML 1 ML VIAL SQ SCH (17:00)
[2023-10-29 17:04] VITALS: BP 136/67; TEMP 97.8
[2023-10-29] MEDS ORDERED: CEFTRIAXONE 1,000 MG in NA CHLORIDE 0.9% 50 ML IVPB SCH (21:00)
--- NOTE | 2023-10-29 22:09 | P.PN ---
Date of Service: 10/29/23 Vital Signs Temp Pulse Resp BP Pulse Ox 97.8 F 63 16 136/67 97 10/29/23 16:00 10/29/23 16:00 10/29/23 16:00 10/29/23 16:00 10/29/23 16:00 Microbiology Results 10/27/23 15:10 Throat Group A Streptococcus Rapid Screen - Final 10/27/23 15:10 Throat Culture & Sensitivity - Final NORMAL UPPER RESPIRATORY HEMA GROWN. 10/27/23 16:40 Blood - Blood Aerobic Blood Culture - Preliminary No growth in 24 hours. 10/27/23 16:40 Blood - Blood Anaerobic Blood Culture - Preliminary No growth in 24 hours. 10/27/23 15:10 Nasopharnyx Influenza Type A Antigen Screen - Final 10/27/23 15:10 Nasopharnyx Influenza Type B Antigen Screen - Final Assessment/ Plan: Nephrology No dyspnea. RIVERA No chest pain Fatigue and weakness No acute events overnight Vitals, medications, blood work and imaging reviewed in the chart. Physical Examination General: In no apparent distress, Cooperative HEENT: Atraumatic Neck: Supple Respiratory: Normal air movement Cardiovascular: No edema, Regular rate/rhythm Gastrointestinal: Soft and benign, Non-distended Musculoskeletal: No clubbing, No contractures Integumentary: No rashes, No cyanosis Neurological: Normal speech Laboratory Data (last 24 hrs) 10/27/23 10/27/23 14:50 14:50 WBC 12.70 H Hgb 10.4 L Hct 30.5 L Plt Count 199 Sodium 133 L Potassium 3.8 BUN 20 H Creatinine 1.38 H Glucose 176 H Magnesium 1.4 L Total Bilirubin 1.0 AST 6 L ALT 15 Alkaline Phosphatase 66 Imagings Data: EXAM DESCRIPTION: Ehsan Single View10/27/2023 3:21 pm CLINICAL HISTORY: cough COMPARISON: March 2023 FINDINGS: Mild opacities mid and lower right lung Left lung appears clear of acute infiltrate Heart is mildly to moderately enlarged IMPRESSION: Mild right lung opacities may indicate mild pneumonia Conclusions/Impression: CKD III with Proteinuria -Continue IVF with NS Renal Transplant Status -Continue prednisone at stress dose; will taper as tolerated Hyponatremia -Continue IVF with NS Hypomagnesemia -Replete as ordered HTN with CKD -Hold antihypertensives at this time DM II with CKD -RISS Anemia in chronic illness -Monitor H&H Acute Cystitis with Hematuria -Follow up culture -Continue abx Case reviewed with hospitalist team
[2023-10-30] MEDS ORDERED: AZITHROMYCIN IV 500 MG in NA CHLORIDE 0.9% 250 ML IVPB SCH (09:00)
[2023-10-30] MEDS ORDERED: PANTOPRAZOLE 40 MG INJ IVP SCH (09:00)
[2023-10-30] MEDS ORDERED: DRISDOL (VITAMIN D=ERGOCALCIFEROL) 50000 UNIT CAP PO SCH (09:00)
== END 2023-10-29 17:44 | disposition home or self-care (01) | DRG 871 ==
LOC: ER 14:12 → ERHOLD 16:49 → 2ND 19:48
PROVIDERS: ADMIT Hospitalist; ATTEND Hospitalist
DX: A41.89 Other specified sepsis (principal); J10.00 Influenza due to other identified influenza virus with unspecified type of pneumonia; Z94.0 Kidney transplant status; E87.1 Hypo-osmolality and hyponatremia; N30.01 Acute cystitis with hematuria; I10 Essential (primary) hypertension; E78.5 Hyperlipidemia, unspecified; M81.0 Age-related osteoporosis without current pathological fracture; E83.42 Hypomagnesemia; I12.9 Hypertensive chronic kidney disease with stage 1 through stage 4 chronic kidney disease, or unspecified chronic kidney disease; N18.32 Chronic kidney disease, stage 3b; E11.22 Type 2 diabetes mellitus with diabetic chronic kidney disease; E11.618 Type 2 diabetes mellitus with other diabetic arthropathy; D63.1 Anemia in chronic kidney disease; D63.8 Anemia in other chronic diseases classified elsewhere; M19.90 Unspecified osteoarthritis, unspecified site; K21.9 Gastro-esophageal reflux disease without esophagitis; Z88.8 Allergy status to other drugs, medicaments and biological substances; Z88.5 Allergy status to narcotic agent; Z11.52 Encounter for screening for COVID-19; Z79.84 Long term (current) use of oral hypoglycemic drugs; Z79.52 Long term (current) use of systemic steroids; Z79.02 Long term (current) use of antithrombotics/antiplatelets; Z79.899 Other long term (current) drug therapy; Z96.643 Presence of artificial hip joint, bilateral; Z91.048 Other nonmedicinal substance allergy status
CPT/HCPCS: 36415; 71045; 80048; 80061; 80076; 81001; 81003; 82947; 83605; 83735; 83880; 84100; 84145; 84439; 84443; 84484; 84550; 85025; 87040; 87070; 87081; 87086; 87088; 87804; 87811; 93005; 94640; 94760; 99285; C9113; J0696; J1644; J3475; J7030; J7050; J7120; J7512; J7613; J7644

== ENCOUNTER 2024-06-14 12:10 | Emergency (ER) | payer OTHER ==
--- OUTSIDE RECORDS SUMMARY | 2024-06-14 12:45 | XMS REPORT | Continuity of Care Document ---
Author Name Unknown Address [address] [facility]. [address] [place] [address] [facility] thconnect Address [address] [facility] [address] [place] [address] Care Team Providers Care Stove Fitter Name Role Phone SIMONE BILL Primary Care Physician Unavailab FAMILIA Vu Attending Clinician UnavailSHEREE Cabrera Attending Clinician UnaSIMONE Jones Attending Clinician Unavailable WES LOZANO Attending Clinician UnavailWES Finch Attending Clinician UnavailSheree Wise MD Attending Clinician [phone] Simone Fraire Attending Clinician [phone] Keagan RAMOS, Sendjeffery K.H. Attending Clinician + [phone] MITCHELL DE PAZ Attending Clinician Unavailable MITCHELL DE PAZ Attending Clinician Unavailable Lab, Ang - Db Attending Clinician Unavailable David RAMOS, Aryan Aguila Attending Clinician [phone] Kristen Liang DO Attending Clinician [phone] Gianfranco RAMOS, Chante Attending Clinician [phone] [facility] JESSY LEMON Attending Clinician Amira evelyn Kendrick MA, February A Attending Clinician Unavailab tamir Nava MD, Familia Mcgill Attending Clinician [phone] Ha Schmitz MD Attending Clinician [phone] KRISTEN LIANG Attending Clinician Unavailable KRISTEN LIANG Attending Clinician Unavailable Nurse, [facility] Pob Amb Infusion Attending Clinician Unavailable 2, [facility] Attending Clinician Unavailable Brenda Richter MD Attending Clinician [phone] Doctor Unassigned, [place] Attending Clinician U navailable UNKNOWN, ATTENDING Attending Clinician Unavailab tamir Unknown, Attending Attending Clinician Unavailab tamir Mcnally MD, Vicki Adal Attending Clinician [phone] ISIDRO BURRELL Attending Clinician Unavail luciano Burrell MD, Isidro Steele Attending Clinician [phone] PINA DOTY Attending Clinician Unavaila ANEL Degroot Attending Clinician Unavailable Anel Arambula Attending Clinician [phone] VICKI MCNALLY Attending Clinician Unavailab ARYAN Melchor Attending Clinician Unavaila ble 1, [facility] Infusion Nurse Attending Clinician LUL Bergeron Attending Clinician Unavail able Lul Garcia OD Attending Clinician [phone] Ynes Tyler LVN Attending Clinician Veto Hernandez MA, Yee Aguila Attending Clinician Unavailable CHANTE MEDEL Attending Clinician Unavailable Amarilis Gallagher LVN Attending Clinician LICHA Ngo Attending Clinician Unavailable Licha Levi MD Attending Clinician [phone] BEV Attending Clinician Unavailable Dodie Hoang MD Attending Clinician [phone] Testing, [facility] Pulmonary Function Attending Clinic dov Unavailable NOREEN ANDUJAR Attending Clinician Unavailable DODIE HOANG Attending Clinician Unavaila dank Kessler RN, Coral Harper Attending Clinician Unavail able SHIKHA GIBBONS Attending Clinician Corinne Hodge MD, Brandon Aguila Attending Clinician [phone] Shikha Gibbons MD Attending Clinician [phone] Samy RAMOS, Shaunna Attending Clinician +[phone] BRENDA LE Attending Clinician Unavailable Brenda Le MD Attending Clinician [phone] Nurse, Ang Dereck Attending Clinician Unavailable BRENDA RABAGO Attending Clinician Veto Rabago MD, Brenda Dawn Attending Clinician + [phone] Eduard Rubio MD Attending Clinician [phone] JACQUELINE IRIZARRY Attending Clinician Unavailable David Vogel PA-C Attending Clinician [phone] Lab, [facility] Fam Pob I Attending Clinician Unavailab BRENDA Kaufman Attending Clinician Unavailconstantine rubin Pcp-Lab Attending Clinician Unavailable Vicenta Skelton MD Attending Clinician [phone] EDUARD RUBIO Attending Clinician Unavailable Addy Pichardo MD Attending Clinician [phone] JONATHAN LOWE Attending Clinician Unavailable Nurse, [facility] Fam Pob I Attending Clinician Unavail able DAVID VOGEL Attending Clinician Unavailable LISETH LUNSFORD Attending Clinician Unavailable Aviva Fu Attending Clinician [phone] ORTEGA LEE Attending Clinician Unavailable Wm RAMOS, Vicki Sandoval Attending Clinician [phone] Ortega Lee MD Attending Clinician [phone] Iveth Art MD Attending Clinician [phone] IVETH ART Attending Clinician Unavaila Jerald Beard Attending Clinician Veto davies Nurse, Transplant Attending Clinician Unavailconstantine Jimenez MD, Nathan Attending Clinician [phone] Pelon Tucker MD Attending Clinician [phone] Tiffanie Espana Attending Clinician [phone] Jacqueline Irizarry MD Attending Clinician [phone] Vtc-Lab Attending Clinician Unavailable Pob, [facility] Main Attending Clinician Unavailconstantine OKEEFE, DICK G Attending Clinician Unavailable MITCHELL DE PAZ Admitting Clinician Unavailable SIMONE BILL Admitting Clinician Unavailable KRSITEN LIANG Admitting Clinician Unavailable BEV Admitting Clinician Unavailable FAMILIA NAVA Admitting Clinician UnavailSHAUNNA Puga Admitting Clinician Unavailable Shaunna Pablo MD Admitting Clinician KEN MORELOS Admitting Clinician Unavailab BRENDA Villa Admitting Clinician Unavailable Payers Payer Name Policy Type Policy Number Effective Date Expirati on Date Source [employer] MEDICARE ADVANTAGE [id number] 2021 00:00:00 MEDICAID [place] PENDING PENDING 2024 00:00:00 [facility] H[place] 3D [id number] 2016 00:00:00 Problems Condition Name Condition Details Condition Category Status Onset Date Resolution Date Last Treatment Date Treating Clinician Comments Source Low grade fever Low grade fever Disease Active 7-05 00:00: [address] [facility] Elevated glucose Elevated glucose Disease Active 7-05 00:00: [address] [facility] Right hip pain Right hip pain Disease Active 4- 00:00: [address] [facility] Recurrent acute suppurativ e otitis media without spontaneou s rupture of left tympanic membrane Recurrent acute suppurativ e otitis media without spontaneou s rupture of left tympanic membrane Disease Active 5-12 00:00: [address] [facility] Subacute cough Subacute cough Disease Active 3-07 00:00: [address] [facility] SOB (shortness of breath) SOB (shortness of breath) Disease Active 3-07 00:00: [address] [facility] Oral thrush Oral thrush Disease Active 8-26 00:00: [address] [facility] Chest pain Chest pain Disease Active 3-05 00:00: [address] 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 Calculus of bile duct without cholecysti tis and without obstructio n Calculus of bile duct without cholecysti tis and without obstructio n Disease Active 1-27 00:00: 00 Overview: Formattin g of this note might be different from the original. Added automatic ally from request for surgery [id number] [facility] Dysuria Dysuria Disease Active 2018-11 2 00:00: 00 [facility] UTI (urinary tract infection) UTI (urinary tract infection) Disease Active 2018-11 2- 00:00: 00 [facility] Nausea & vomiting Nausea & vomiting Disease Active 5-23 00:00: 00 [facility] Urinary tract infection Urinary tract infection Disease Active 3-08 00:00: 00 [facility] Closed right hip fracture Closed right hip fracture Disease Active 2017-11 0- 00:00: 00 [facility] Closed fracture of right hip, initial encounter Closed fracture of right hip, initial encounter Disease Active 2017-11 0 00:00: 00 Overview: Formattin g of this note might be different from the original. Added automatic ally from request for surgery [id number] [facility] Situationa l mixed anxiety and depressive disorder Situationa l mixed anxiety and depressive disorder Disease Active 06-21 00:00: 00 [facility] Fracture of femoral neck, left, closed Fracture of femoral neck, left, closed Disease Active 06-04 00:00: 00 [facility] Obesity (BMI 30-39.9) Obesity (BMI 30-39.9) Disease Active 06-04 00:00: 00 [facility] Closed fracture of neck of femur Closed fracture of neck of femur Disease Active 06-03 00:00: 00 Overview: Formattin g of this note might be different from the original. 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 Disease Active 6-19 00:00: 00 [facility] Immunizati on counseling Immunizati on counseling Disease Active 04-14 00:00: 00 [facility] PMR (polymyalg ia rheumatica ) PMR (polymyalg ia rheumatica ) Disease Active 04-14 00:00: 00 [facility] Low back pain without sciatica, unspecifie d back pain laterality , unspecifie d chronicity Low back pain without sciatica, unspecifie d back pain laterality , unspecifie d chronicity Disease Active 04-14 00:00: 00 [facility] Renal cyst Renal cyst Disease Active 03-22 00:00: 00 Overview: Formattin g of this note might be different from the original. Two cysts of her transplan nader kidney per US 03/11/2018 [facility] Muscle weakness Muscle weakness Disease Active 02-15 00:00: 00 [facility] Myalgia Myalgia Disease Active 02-15 00:00: 00 [facility] Immunosupp ressive management encounter following kidney transplant Immunosupp ressive management encounter following kidney transplant Disease Active 2016-11 00:00: 00 [facility] Early cataracts, bilateral Early cataracts, bilateral Disease Active 06-19 00:00: 00 [facility] Dry eye syndrome, bilateral Dry eye syndrome, bilateral Disease Active 06-19 00:00: 00 [facility] Refractive error Refractive error Disease Active 06-19 00:00: 00 [facility] Positive DUDLEY (antinucle ar antibody) 1:80 Positive DUDLEY (antinucle ar antibody) 1:80 Disease Active 01-08 00:00: 00 [facility] Atypical rash Atypical rash Disease Active 01-08 00:00: 00 [facility] Screening for colon cancer Screening for colon cancer Disease Active 2015-11 00:00: 00 [facility] Need for Tdap vaccinatio n Need for Tdap vaccinatio n Disease Active 2015-11 00:00: 00 [facility] Essential hypertensi on Essential hypertensi on Disease Active 05-16 00:00: 00 Overview: Formattin g of this note might be different from the original. 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 [facility] Kidney replaced by transplant Kidney replaced by transplant Disease Active 2010-11 00:00: 00 [facility] Renal transplant Renal transplant Disease Active 05-22 00:00: 00 [facility] Cholelithi asis Cholelithi asis Disease Active 03-07 00:00: 00 [facility] GERD (gastroeso phageal reflux disease) GERD (gastroeso phageal reflux disease) Disease Active 03-07 00:00: 00 [facility] History of end stage renal disease History of end stage renal disease Disease Active 04-16 00:00: 00 [facility] Generalize d osteoarthr osis, unspecifie d site Generalize d osteoarthr osis, unspecifie d site Disease Active 12-01 00:00: 00 [facility] Hyperparat hyroidism Hyperparat hyroidism Disease Active 12-01 00:00: 00 [facility] Local infection of wound Local infection of wound Disease Resolve d 05-16 00:00: 00 2016-07-08 00:00:00 2016-07-08 09:27:38 [facility] Unspecifie d hypertensi ve kidney disease with chronic kidney disease stage I through stage IV, or unspecifie d Unspecifie d hypertensi ve kidney disease with chronic kidney disease stage I through stage IV, or unspecifie d Disease Resolve d 05-02 00:00: 00 2016-07-08 00:00:00 2016-07-08 09:52:56 [facility] Other reasons for seeking consultati on Other reasons for seeking consultati on Disease Resolve d 06-16 00:00: 00 2010-04-11 00:00:00 2010-04-11 10:27:30 [facility] Renal dialysis status Renal dialysis status Disease Resolve d 06-16 00:00: 00 2010-04-11 00:00:00 2010-04-11 10:28:10 [facility] Osteoporos is Osteoporos is Disease Resolve d 06-16 00:00: 00 2010-04-11 00:00:00 2022-06-08 00:13:42 [facility] Essential hypertensi on Essential hypertensi on Disease Resolve d 04-16 00:00: 00 2010-04-11 00:00:00 2022-06-08 00:10:59 [facility] Renal failure Renal failure Disease Resolve d 12-21 00:00: 00 2010-04-11 00:00:00 2022-06-08 00:10:15 [facility] Hypercalce kary Hypercalce kary Disease Resolve d 2005-11 00:00: 00 2010-04-11 00:00:00 2010-04-11 10:27:48 [facility] Hypoparath yroidism Hypoparath yroidism Disease Resolve d 12-01 00:00: 00 2006-12-01 00:00:00 2006-12-01 15:34:54 [facility] Allergies, Adverse Reactions, Alerts Allergy Name Allergy Type Status Severity Reaction(s) Onset Date Inactive Date Treating Clinician Comments Source Iodine And Iodide Containi ng Products Propensi ty to adverse reaction s Active Nausea and/or Vomiting 04-22 00:00: 00 [facility] IODINE AND IODIDE CONTAINI NG PRODUCTS Drug Class Active N/V 0 5-31 00:00: 00 [facility] Sirolimu s (Bulk) Propensi ty to adverse reaction s Active Rash 0 -14 00:00: 00 [facility] SIROLIMU S (BULK) DRUG Active Rash 0 -14 00:00: 00 [facility] Adhesive Tape-Diana icones Propensi ty to adverse reaction s Active Rash 0 -08 00:00: 00 [facility] Codeine Propensi ty to adverse reaction s Active Nausea and/or Vomiting 0 08 00:00: 00 [facility] ADHESIVE TAPE-DIANA ICONES DRUG Active High Rash 0 -08 00:00: 00 [facility] CODEINE DRUG INGREDI Active High N/V 08 00:00: 00 [facility] Social History Social Habit Start Date Stop Date Quantity Comments Source Gender identity [facility] Sexual orientation [facility] Alcoholic beverage intake 2024-06-10 00:00:00 2024-06-10 00:00:00 0 /d [facility] Alcohol intake 2024-02-22 00:00:00 2024-02-22 00:00:00 0 /d [facility] History of Social function 2024-02-22 00:00:00 2024-02-22 00:00:00 [facility] Exposure to SARS-CoV-2 (event) 2023-03-24 00:00:00 2023-04-03 07:41:00 Not sure [facility] History SDOH Social Connections Phone 2023-04-03 00:00:00 2023-04-03 00:00:00 4 [facility] History SDOH Social Connections Get Together 2023-04-03 00:00:00 2023-04-03 00:00:00 3 [facility] History SDOH Social Connections Moravian 2023-04-03 00:00:00 2023-04-03 00:00:00 2 [facility] History SDOH Social Connections Membership 2023-04-03 00:00:00 2023-04-03 00:00:00 2 [facility] History SDOH Social Connections Meetings 2023-04-03 00:00:00 2023-04-03 00:00:00 1 [facility] History SDOH Social Connections Living 2023-04-03 00:00:00 2023-04-03 00:00:00 3 [facility] SDOH Physical Activity DPW 2023-04-03 00:00:00 2023-04-03 00:00:00 0 [facility] History SDOH Physical Activity MPS 2023-04-03 00:00:00 2023-04-03 00:00:00 1 [facility] History SDOH Stress 2023-04-03 00:00:00 2023-04-03 00:00:00 3 [facility] History SDOH Financial 2023-04-03 00:00:00 2023-04-03 00:00:00 5 [facility] History SDOH Food Worry 2023-04-03 00:00:00 2023-04-03 00:00:00 1 [facility] History SDOH Food Scarcity 2023-04-03 00:00:00 2023-04-03 00:00:00 1 [facility] History SDOH Transport Med 2023-04-03 00:00:00 2023-04-03 00:00:00 2 [facility] History SDOH Transport Non-Med 2023-04-03 00:00:00 2023-04-03 00:00:00 2 [facility] History SDOH Housing Unable to Pay 2023-04-03 00:00:00 2023-04-03 00:00:00 2 [facility] History SDOH Housing Places Lived 2023-04-03 00:00:00 2023-04-03 00:00:00 1 [facility] History SDOH Housing Homeless Last Year 2023-04-03 00:00:00 2023-04-03 00:00:00 2 [facility] History SDOH Alcohol Frequency 2023-04-03 00:00:00 2023-04-03 00:00:00 1 [facility] History SDOH Alcohol Std Drinks 2023-04-03 00:00:00 2023-04-03 00:00:00 0 [facility] History SDOH Alcohol Binge 2023-04-03 00:00:00 2023-04-03 00:00:00 1 [facility] Tobacco use and exposure 2022-09-16 00:00:00 2022-09-16 00:00:00 Smokeless tobacco non-user [facility] Alcohol Comment 2010-04-02 00:00:00 2010-04-02 00:00:00 never [facility] Sex assigned at 1955 00:00:00 1955 00:00:00 [facility] Smoking Status Start Date Stop Date Source Never smoked tobacco [facility] Medications Ordered Medication Name Filled Medication Name Start Date Stop Date Current Medication? Ordering Clinician Indication Dosage Frequency Signature (SIG) Comments Components Source MYFORTIC 180 mg tablet 06-13 00:00: 00 Yes [id number] TAKE 3 TABLETS BY MOUTH EVERY 12 HOURS [facility] rosuvastati n 5 mg tablet 06-10 00:00: 00 Yes [id number] 5mg Take 1 tablet by mouth at bedtime. [facility] Insulin Glargine (LANTUS SOLOSTAR U-100 INSULIN) 100 unit/mL (3 mL) injection 06-10 00:00: 00 Yes [id number] 10U inject 10 Units under the skin daily. [facility] Insulin [place], Disposable, (PEN NEEDLE) 31 gauge x 3/16" Ndle 06-10 00:00: 00 Yes [id number] Use as directed [facility] insulin glargine (LANTUS U-100) injection 10 Units 06-09 20:45: 00 06-09 20:26 :00 No 10U 10 Units, Subcutaneo us, ONCE, 1 dose, On Leslie 06/09/24 at 1545, Routine [facility] NaCl 0.9% (NS) bolus infusion 1,000 mL 06-09 19:15: 00 06-09 21:22 :00 No 1000mL at 999 mL/hr, 1,000 mL, IV Infusion, ONCE, 1 dose, On Leslie 06/09/24 at 1415, DIEUDONNE [facility] cefdinir 300 mg capsule 06-09 00:00: 00 06-09 00:00 :00 Yes [id number] 300mg Take 1 capsule by mouth 2 (two) times daily. [facility] Insulin Glargine 100 unit/mL (3 mL) injection 06-08 00:00: 00 Yes [id number] 10U inject 10 Units under the skin daily. [facility] Blood-Gluco se Meter (GLUCOCARD SHINE METER) [facility] 06-08 00:00: 00 Yes [id number] Use as directed [facility] lancets (TECHLITE LANCETS) 28 gauge [facility] 06-08 00:00: 00 Yes [id number] Check FASTING BLOOD SUGAR DAILY [facility] blood sugar diagnostic (GLUCOCARD SHINE TEST STRIPS) strip 06-08 00:00: 00 Yes [id number] Check fasting BLOOD SUGAR DAILY [facility] mycophenola te sodium (MYFORTIC) 180 mg EC tablet 06-07 00:00: 00 06-13 00:00 :00 No [id number] TAKE 3 TABLETS BY MOUTH EVERY 12 HOURS [facility] spironolact one 25 mg tablet 06-03 00:00: 00 Yes [id number] 25mg Take 1 tablet by mouth daily. [facility] umeclidiniu m (INCRUSE ELLIPTA) 62.5 mcg/actuati on DsDv 05-31 00:00: 00 Yes [id number] 1{puff} INHALE 1 PUFF BY MOUTH DAILY [facility] ALBUTEROL 90 mcg/actuati on inhaler 05-24 00:00: 00 Yes [id number] 2{puff} INHALE 2 PUFFS BY MOUTH EVERY 6 HOURS NEEDED FOR WHEEZING OR SHORTNESS OF BREATH [facility] cycloSPORIN E 25 mg capsule 05-24 00:00: 00 Yes [id number] 25mg Take 1 capsule by mouth every 12 (twelve) hours. [facility] ALBUTEROL 90 mcg/actuati on inhaler 05-02 00:00: 00 05-24 00:00 :00 No [id number] 2{puff} INHALE 2 PUFFS BY MOUTH EVERY 6 HOURS NEEDED FOR WHEEZING OR SHORTNESS OF BREATH [facility] ALBUTEROL 90 mcg/actuati on inhaler 04-08 00:00: 00 05-02 00:00 :00 No [id number] 2{puff} INHALE 2 PUFFS BY MOUTH EVERY 6 HOURS NEEDED FOR WHEEZING OR SHORTNESS OF BREATH [facility] famotidine 20 mg tablet 03-25 00:00: 00 Yes [id number] 20mg Take 1 tablet by mouth 2 (two) times daily. [facility] carvediloL 25 mg tablet 03-25 00:00: 00 Yes 25mg Take 1 tablet by mouth 2 (two) times daily with meals. [facility] OMEPRAZOLE 20 mg capsule 03-21 00:00: 00 Yes [id number] 20mg TAKE 1 CAPSULE BY MOUTH DAILY [facility] FUROSEMIDE 20 mg tablet 24 00:00: 00 Yes [id number] TAKE 1 TABLET BY MOUTH TWICE DAILY NEEDED FOR SWELLING [facility] GLIPIZIDE 10 mg tablet 03-14 00:00: 00 Yes [id number] TAKE 1 TABLET BY MOUTH TWICE DAILY BEFORE BREAKFAST AND DINNER [facility] ALBUTEROL 90 mcg/actuati on inhaler 03-11 00:00: 00 04-08 00:00 :00 No [id number] 2{puff} INHALE 2 PUFFS EVERY 6 HOURS NEEDED FOR WHEEZING OR SHORTNESS OF BREATH. [facility] rosuvastati n 5 mg tablet 03-09 00:00: 00 06-09 00:00 :00 No [id number] 5mg TAKE 1 TABLET BY MOUTH AT BEDTIME [facility] calcium carbonate 650 mg calcium (1,625 mg) tablet 03-07 15:04: 44 Yes 650mg Take 650 mg by mouth daily. [facility] MONTELUKAST 10 mg tablet 03-07 00:00: 00 Yes [id number] 10mg TAKE 1 TABLET BY MOUTH EVERY EVENING [facility] irbesartan 150 mg tablet 03-04 00:00: 00 Yes [id number] 150mg TAKE 1 TABLET BY MOUTH AT BEDTIME [facility] glipiZIDE XL 2.5 mg 24 hr tablet 02-22 00:00: 00 Yes [id number] 2.5mg Take 1 tablet by mouth daily with breakfast. [facility] denosumab (PROLIA) injection Syrg 60 mg 12-24 17:00: 00 12-24 16:00 :00 No [id number] 60mg 60 mg, Subcutaneo us, ONCE, 1 dose, On Thu12/24/23 at 1100, Routine
bakery team member approving Restricted medication : FAMILIA NAVA [facility] OMEPRAZOLE 20 mg capsule 12-21 00:00: 00 03-21 00:00 :00 No [id number] 20mg TAKE 1 CAPSULE BY MOUTH DAILY [facility] mycophenola te sodium (MYFORTIC) 180 mg EC tablet 12-04 00:00: 00 06-13 00:00 :00 No TAKE 3 TABLETS BY MOUTH EVERY 12 HOURS [facility] MONTELUKAST 10 mg tablet -11 00:00: 00 03-07 00:00 :00 No [id number] 10mg TAKE 1 TABLET BY MOUTH EVERY EVENING [facility] famotidine 20 mg tablet 05 00:00: 00 03-24 00:00 :00 No [id number] 20mg Take 1 tablet by mouth 2 (two) times daily. [facility] irbesartan 150 mg tablet 11-24 00:00: 00 03-04 00:00 :00 No [id number] 150mg TAKE 1 TABLET BY MOUTH AT BEDTIME [facility] PNV,calcium 72-iron-fol ic acid (WESTAB PLUS) 27 mg iron- 1 mg tablet 2022-11 00:00: 00 Yes [id number] 1{tbl} TAKE 1 TABLET BY MOUTH EVERY MORNING [facility] glipiZIDE 10 mg tablet 2022-11 00:00: 00 03-14 00:00 :00 No [id number] 10mg Take 1 tablet by mouth 2 (two) times daily before breakfast and dinner. [facility] OMEPRAZOLE 20 mg capsule 2022-11 00:00: 00 12-21 00:00 :00 No [id number] 20mg TAKE 1 CAPSULE BY MOUTH DAILY [facility] glipiZIDE XL 2.5 mg 24 hr tablet 2022-11 00:00: 00 09-22 00:00 :00 No [id number] Pt to take 7.5mg daily, 5mg tab plus 2.5mg tab [facility] MONTELUKAST 10 mg tablet 2022-11 00:00: 00 12-03 00:00 :00 No [id number] 10mg TAKE 1 TABLET BY MOUTH EVERY EVENING [facility] FLUTICASONE PROPION-HAKAN METEROL 250-50 mcg/dose inhalation disk 08-19 00:00: 00 Yes [id number] 1{puff} INHALE 1 PUFF BY MOUTH EVERY 12 HOURS [facility] famotidine 20 mg tablet 08-05 00:00: 00 11-27 00:00 :00 No [id number] 20mg Take 1 tablet by mouth 2 (two) times daily. [facility] amoxicillin 500 mg tablet 8-11 00:00: 00 07-11 04:59 :00 No [id number] 500mg Take 1 tablet by mouth 2 (two) times daily for 7 days. [facility] montelukast 10 mg tablet 8- 00:00: 00 09-14 00:00 :00 No [id number] 10mg Take 1 tablet by mouth every evening. [facility] denosumab (PROLIA) injection Syrg 60 mg 06-18 14:45: 00 06-18 14:39 :00 No [id number] 60mg 60 mg, Subcutaneo us, ONCE, 1 dose, On Leslie 06/18/23 at 0945, Routine
bakery team member approving Restricted medication : FAMILIA NAVA [facility] cycloSPORIN E (RESTASIS) 0.05 % drops 06-11 00:00: [id number] 1 DROP IN BOTH EYES EVERY 12 HOURS [facility] predniSONE 5 mg tablet 06-05 00:00: 00 Yes [id number] 5mg Take 1 tablet by mouth daily. [facility] spironolact one 25 mg tablet 06-05 00:00: 00 Yes [id number] 25mg Take 1 tablet by mouth daily. [facility] carvediloL 25 mg tablet 06-05 00:00: 00 03-24 00:00 :00 No 25mg Take 1 tablet by mouth 2 (two) times daily with meals. [facility] furosemide 20 mg tablet 06-05 00:00: 00 03-16 00:00 :00 No 20mg Take 1 tablet by mouth as needed (edema). Take 1 tablet two times daily [facility] rosuvastati n 5 mg tablet 06-05 00:00: 00 03-09 00:00 :00 No [id number] 5mg Take 1 tablet by mouth at bedtime. [facility] PNV,calcium 72-iron-fol ic acid (WESTAB PLUS) 27 mg iron- 1 mg tablet 06-05 00:00: 00 09-22 00:00 :00 No 1{tbl} Take 1 tablet by mouth every morning. [facility] omeprazole 20 mg capsule 06-05 00:00: 00 09-18 00:00 :00 No [id number] 20mg Take 1 capsule by mouth daily. [facility] nystatin 100,000 unit/mL suspension 7-11 00:00: 00 06-10 04:59 :00 No [id number] Take 5 mL by mouth 4 (four) times daily for 7 days. [facility] umeclirachanaiu m (INCRUSE ELLIPTA) 62.5 mcg/actuati on DsDv 05-29 00:00: 00 05-31 00:00 :00 No [id number] 1{puff} Inhale 1 Puff daily. [facility] cycloSPORIN E 25 mg capsule -23 00:00: 00 05-24 00:00 :00 No [id number] 25mg Take 1 capsule by mouth every 12 (twelve) hours. [facility] calcitrioL 0.25 mcg capsule -16 00:00: 00 11-19 00:00 :00 No [id number] .25ug Take 1 capsule by mouth daily. [facility] tiotropium 18 mcg inhalation 05-01 00:00: 00 05-29 00:00 :00 No [id number] 18ug Inhale 1 capsule daily. [facility] predniSONE 5 mg tablet 05 00:00: 00 06-04 00:00 :00 No [id number] 5mg Take 1 tablet by mouth daily. [facility] mycophenola te sodium 180 mg EC tablet 04-24 00:00: 00 12-04 00:00 :00 No TAKE 3 TABLETS BY MOUTH EVERY 12 HOURS [facility] glipiZIDE 5 mg tablet 5-22 00:00: 00 09-22 00:00 :00 No [id number] TAKE 2 TABLETS BY MOUTH EVERY MORNING AND TAKE 1 TABLET BY MOUTH EVERY EVENING [facility] montelukast 10 mg tablet 5-18 00:00: 00 07-01 00:00 :00 No [id number] 10mg Take 1 tablet by mouth every evening. [facility] amoxicillin -clavulanat e (AUGMENTIN) 875-125 mg per tablet 5-12 00:00: 00 04-11 04:59 :00 No [id number] 1{tbl} Take 1 tablet by mouth 2 (two) times daily for 7 days. [facility] nystatin 100,000 unit/mL suspension 512 00:00: 00 04-11 04:59 :00 No [id number] Take 5 mL by mouth 4 (four) times daily for 7 days. [facility] irbesartan 150 mg tablet 24 00:00: 00 11-24 00:00 :00 No [id number] 150mg Take 1 tablet by mouth at bedtime. [facility] omeprazole 20 mg capsule 03-13 00:00: 00 06-04 00:00 :00 No [id number] 20mg Take 1 capsule by mouth daily. [facility] calcium carbonate 650 mg calcium (1,625 mg) tablet 02-18 14:00: 07 Yes 650mg Take 650 mg by mouth daily. [facility] fluticasone propion-hakan meteroL (ADVAIR DISKUS) 250-50 mcg/dose inhalation disk 02-16 00:00: 00 08-19 00:00 :00 No [id number] 1{puff} Inhale 1 Puff every 12 (twelve) hours. [facility] cycloSPORIN E (RESTASIS) 0.05 % drops 02-09 00:00: 00 06-11 00:00 :[id number] 1 DROP IN BOTH EYES EVERY 12 HOURS [facility] FAMOTIDINE 20 mg tablet 01-30 00:00: 00 08-05 00:00 :00 No [id number] TAKE 1 TABLET BY MOUTH TWICE DAILY [facility] albuterol 90 mcg/actuati on inhaler 01-27 00:00: 00 03-11 00:00 :00 No [id number] 2{puff} Inhale 2 Puffs every 6 (six) hours as needed for Wheezing or Shortness of Breath. [facility] benzonatate 200 mg capsule 3-07 00:00: 00 02-04 04:59 :00 No [id number] 200mg Take 1 capsule by mouth 3 (three) times daily as needed for Cough for up to 7 days. [facility] famotidine (PEPCID) 20 mg tablet 3-03 00:00: 00 01-30 00:00 :00 No [id number] 20mg Take 1 tablet by mouth daily. [facility] MONTELUKAST 10 mg tablet 2-16 00:00: 00 04-09 00:00 :00 No [id number] 10mg TAKE 1 TABLET BY MOUTH EVERY EVENING [facility] OMEPRAZOLE 20 mg capsule 2021-11 2-19 00:00: 00 03-12 00:00 :00 No [id number] 20mg TAKE 1 CAPSULE BY MOUTH DAILY [facility] tiotropium 18 mcg inhalation 2021-11- 00:00: 00 05-01 00:00 :00 No [id number] 18ug Inhale 1 capsule daily. [facility] calcium carbonate 650 mg calcium (1,625 mg) tablet 2021-11 0 09:32: 41 Yes 650mg Take 650 mg by mouth daily. [facility] albuterol 90 mcg/actuati on inhaler 2021-11 0 00:00: 00 Yes [id number] 2{puff} Inhale 2 Puffs every 6 (six) hours as needed for Wheezing or Shortness of Breath. [facility] PNV,calcium 72-iron-fol ic acid (WESTAB PLUS) 27 mg iron- 1 mg tablet 2021-11 0-14 00:00: 00 Yes 1{tbl} Take 1 tablet by mouth every morning. [facility] PNV,calcium 72-iron-fol ic acid (WESTAB PLUS) 27 mg iron- 1 mg tablet 2021-11 0-14 00:00: 00 06-04 00:00 :00 No 1{tbl} Take 1 tablet by mouth every morning. [facility] albuterol 90 mcg/actuati on inhaler 2021-11 0 00:00: 00 09-16 00:00 :00 No [id number] 2{puff} Inhale 2 Puffs every 6 (six) hours as needed for Wheezing or Shortness of Breath. [facility] calcium carbonate 650 mg calcium (1,625 mg) tablet 08-20 14:02: 30 Yes 650mg Take 650 mg by mouth daily. [facility] GLIPIZIDE 5 mg tablet 08-04 00:00: 00 04-13 00:00 :00 No [id number] TAKE 2 TABLETS BY MOUTH EVERY MORNING AND TAKE 1 TABLET BY MOUTH EVERY EVENING [facility] calcium carbonate 650 mg calcium (1,625 mg) tablet 07-18 16:09: 09 Yes 650mg Take 650 mg by mouth daily. [facility] nystatin 100,000 unit/mL suspension 07-18 00:00: 00 07-26 04:59 :00 No [id number] Take 5 mL by mouth 4 (four) times daily for 7 days. [facility] spironolact one 25 mg tablet 07-09 00:00: 00 06-04 00:00 :00 No [id number] 25mg Take 1 tablet by mouth daily. [facility] montelukast 10 mg tablet 07-09 00:00: 00 01-08 00:00 :00 No [id number] 10mg Take 1 tablet by mouth every evening. [facility] furosemide 20 mg tablet 06-27 00:00: 00 06-04 00:00 :00 No Take 1 tablet two times daily [facility] PROAIR HFA 90 mcg/actuati on inhaler 05-09 00:00: 00 Yes [id number] INHALE 2 PUFFS BY MOUTH EVERY 6 HOURS NEEDED FOR SHORTNESS OF BREATH [facility] cycloSPORIN E 25 mg capsule 05-09 00:00: 00 05-15 00:00 :00 No [id number] 25mg Take 1 capsule by mouth every 12 (twelve) hours. [facility] MYFORTIC 180 mg tablet 04-24 00:00: 00 06-07 00:00 :00 No TAKE 3 TABLETS BY MOUTH EVERY 12 HOURS [facility] MYCOPHENOLA TE SODIUM 180 mg EC tablet 04-24 00:00: 00 04-24 00:00 :00 No TAKE 3 TABLETS BY MOUTH EVERY 12 HOURS [facility] predniSONE 5 mg tablet 25 00:00: 00 04-24 00:00 :00 No [id number] 5mg Take 1 tablet by mouth daily. [facility] rosuvastati n 5 mg tablet 04-15 00:00: 00 06-04 00:00 :00 No [id number] 5mg Take 1 tablet by mouth at bedtime. [facility] carvediloL 25 mg tablet 04-15 00:00: 00 06-04 00:00 :00 No 25mg Take 1 tablet by mouth 2 (two) times daily with meals. [facility] calcitrioL 0.25 mcg capsule 04-15 00:00: 00 05-07 00:00 :00 No [id number] .25ug Take 1 capsule by mouth daily. [facility] irbesartan 150 mg tablet 04-15 00:00: 00 03-13 00:00 :00 No [id number] 150mg Take 1 tablet by mouth at bedtime. [facility] omeprazole 20 mg capsule 24 00:00: 00 11-10 00:00 :00 No [id number] 20mg Take 1 capsule by mouth daily. [facility] famotidine 20 mg tablet 24 00:00: 00 11-10 00:00 :00 No 20mg Take 1 tablet by mouth 2 (two) times daily. [facility] glipiZIDE 5 mg tablet 2022-0 3-09 00:00: 00 08-04 00:00 :00 No [id number] TAKE 2 TABLETS BY MOUTH EVERY MORNING AND TAKE 1 TABLET BY MOUTH EVERY EVENING [facility] MONTELUKAST 10 mg tablet 01-29 00:00: 00 07-09 00:00 :00 No [id number] 10mg TAKE 1 TABLET BY MOUTH EVERY EVENING [facility] cycloSPORIN E (RESTASIS) 0.05 % drops 01-13 00:00: 00 02-09 00:00 :00 No [id number] 1[drp] Place 1 Drop in both eyes every 12 (twelve) hours. [facility] omeprazole 20 mg capsule 2020-11 00:00: 00 04-14 00:00 :00 No [id number] 20mg Take 1 capsule by mouth daily. [facility] WESTAB PLUS 27 mg iron- 1 mg tablet 2020-11 00:00: 00 09-04 00:00 :00 No TAKE 1 TABLET BY MOUTH DAILY [facility] WESTAB PLUS 27 mg iron- 1 mg tablet 2020-11 00:00: 00 09-04 00:00 :00 No TAKE 1 TABLET BY MOUTH DAILY [facility] SPIRONOLACT ONE 25 mg tablet 2020-11 00:00: 00 07-06 00:00 :00 No [id number] 25mg TAKE 1 TABLET BY MOUTH DAILY [facility] PNV,calcium 72-iron-fol ic acid (PREPLUS) 27 mg iron- 1 mg tablet 07-24 00:00: 00 09-04 00:00 :00 No 1{tbl} Take 1 tablet by mouth daily. [facility] predniSONE 5 mg tablet 06-12 00:00: 00 04-14 00:00 :00 No [id number] 5mg Take 1 tablet by mouth daily. [facility] irbesartan 150 mg tablet 06-06 00:00: 00 04-14 00:00 :00 No [id number] 150mg Take 1 tablet by mouth at bedtime. [facility] MONTELUKAST 10 mg tablet 6-14 00:00: 00 10-18 00:00 :00 No [id number] 10mg TAKE 1 TABLET BY MOUTH EVERY EVENING [facility] FUROSEMIDE 20 mg tablet 6-11 00:00: 00 06-27 00:00 :00 No TAKE 1 TABLET BY MOUTH EVERY MORNING AND EVERY EVENING [facility] carvediloL 25 mg tablet 6- 00:00: 00 10-23 00:00 :00 No 25mg Take 1 tablet by mouth 2 (two) times daily with meals. [facility] mycophenola te sodium 180 mg EC tablet 5-17 00:00: 00 04-24 00:00 :00 No 540mg Take 3 tablets by mouth every 12 (twelve) hours. Z94.0 [facility] glipiZIDE 5 mg tablet 4-15 00:00: 00 10-10 00:00 :00 No [id number] Take 10 mg qam and 5 mg qpm [facility] CYCLOSPORIN E 25 mg capsule 4-05 00:00: 00 05-05 00:00 :00 No [id number] TAKE 1 CAPSULE BY MOUTH EVERY 12 HOURS [facility] CALCITRIOL 0.25 mcg capsule 3-03 00:00: 00 12-31 00:00 :00 No [id number] .25ug TAKE 1 CAPSULE BY MOUTH DAILY [facility] omeprazole 20 mg capsule 2-02 00:00: 00 10-02 00:00 :00 No [id number] 20mg Take 1 capsule by mouth daily. [facility] proMETHazin e 25 mg tablet 1-14 00:00: 00 Yes 12.5mg Take 0.5 tablets by mouth every 6 (six) hours as needed for Nausea and Vomiting (N/V). [facility] linaGLIPtin (TRADJENTA) 5 mg tablet 2021-0 1-13 00:00: 00 12-24 00:00 :00 No [id number] 5mg Take 1 tablet by mouth daily. [facility] RESTASIS 0.05 % ophthalmic drops 2019-11 2 00:00: 00 01-13 00:00 :00 No [id number] INSTILL 1 DROP INTO BOTH EYES EVERY 12 HOURS [facility] fluticasone furoate-michelle anteroL (BREO ELLIPTA) 100-25 mcg/dose DsDv 2019-11 00:00: 00 Yes [id number] 1{puff} Inhale 1 Puff daily. [facility] famotidine 20 mg tablet 2019-11 00:00: 00 10-04 00:00 :00 No 20mg Take 1 tablet by mouth 2 (two) times daily. [facility] spironolact one 25 mg tablet 2019-11 00:00: 00 09-04 00:00 :00 No [id number] 25mg Take 1 tablet by mouth daily. [facility] darbepoetin blake (ARANESP) injection 60 mcg 03-14 14:30: 00 Yes 60ug [facility] Lancets (ONE TOUCH ULTRASOFT LANCETS) [facility] 07-28 00:00: 00 Yes Use as directed [facility] Lancets (ONE TOUCH ULTRASOFT LANCETS) [facility] 07-28 00:00: 00 Yes Use as directed [facility] Immunizations Ordered Immunization Name Filled Immunization Name Date Status Comments Source Influenza Virus Vaccine,quad Im,preserve Free + 2023-01-27 00:00:00 Completed [facility] Influenza Virus Vaccine,quad Im,preserve Free 65+ 2023-01-27 00:00:00 Completed [facility] Influenza Virus Vaccine,quad Im,preserve Free 65+ 2023-01-27 00:00:00 Completed [facility] Influenza Virus Vaccine,quad Im,preserve Free 65+ 2023-01-27 00:00:00 Completed [facility] Influenza Virus Vaccine,quad Im,preserve Free 65+ 2023-01-27 00:00:00 Completed [facility] Influenza Virus Vaccine,quad Im,preserve Free 2023-01-27 00:00:00 Completed [facility] Influenza Virus Vaccine,quad Im,preserve Free [id number] 00:00:00 Completed [facility] Influenza Virus Vaccine,quad Im,preserve Free 2023-01-27 00:00:00 Completed [facility] Influenza Virus Vaccine,quad Im,preserve Free 2023-01-27 00:00:00 Completed [facility] Influenza Virus Vaccine,quad Im,preserve Free 2023-01-27 00:00:00 Completed [facility] Influenza Virus Vaccine,quad Im,preserve Free [id number] 00:00:00 Completed [facility] Influenza Virus Vaccine,quad Im,preserve Free 2023-01-27 00:00:00 Completed [facility] Influenza Virus Vaccine,quad Im,preserve Free 2023-01-27 00:00:00 Completed [facility] Influenza Virus Vaccine,quad Im,preserve Free 2023-01-27 00:00:00 Completed [facility] Influenza Virus Vaccine,quad Im,preserve Free 2023-01-27 00:00:00 Completed [facility] Influenza Virus Vaccine,quad Im,preserve Free 2023-01-27 00:00:00 Completed [facility] Influenza Virus Vaccine,quad Im,preserve Free 2023-01-27 00:00:00 Completed [facility] Influenza Virus Vaccine,quad Im,preserve Free 2023-01-27 00:00:00 Completed [facility] Influenza Virus Vaccine,quad Im,preserve Free 2023-01-27 00:00:00 Completed [facility] Influenza Virus Vaccine,quad Im,preserve Free 2023-01-27 00:00:00 Completed [facility] Influenza Virus Vaccine,quad Im,preserve Free 2023-01-27 00:00:00 Completed [facility] Influenza Virus Vaccine,quad Im,preserve Free 2023-01-27 00:00:00 Completed [facility] Influenza Virus Vaccine,quad Im,preserve Free 2023-01-27 00:00:00 Completed [facility] Influenza Virus Vaccine,quad Im,preserve Free 2023-01-27 00:00:00 Completed [facility] Influenza Virus Vaccine,quad Im,preserve Free 2023-01-27 00:00:00 Completed [facility] Influenza Virus Vaccine,quad Im,preserve Free 2023-01-27 00:00:00 Completed [facility] Influenza Virus Vaccine,quad Im,preserve Free 2023-01-27 00:00:00 Completed [facility] Influenza Virus Vaccine,quad Im,preserve Free 2023-01-27 00:00:00 Completed [facility] Influenza Virus Vaccine,quad Im,preserve Free 2023-01-27 00:00:00 Completed [facility] Influenza Virus Vaccine,quad Im,preserve Free 2023-01-27 00:00:00 Completed [facility] Influenza Virus Vaccine,quad Im,preserve Free 2023-01-27 00:00:00 Completed [facility] Influenza Virus Vaccine,quad Im,preserve Free 2023-01-27 00:00:00 Completed [facility] Influenza Virus Vaccine,quad Im,preserve Free 2023-01-27 00:00:00 Completed [facility] Influenza Virus Vaccine,quad Im,preserve Free 2023-01-27 00:00:00 Completed [facility] Influenza Virus Vaccine,quad Im,preserve Free 2023-01-27 00:00:00 Completed [facility] Influenza Virus Vaccine,quad Im,preserve Free 2023-01-27 00:00:00 Completed [facility] Influenza Virus Vaccine,quad Im,preserve Free 2023-01-27 00:00:00 Completed [facility] Influenza Virus Vaccine,quad Im,preserve Free 2023-01-27 00:00:00 Completed [facility] Influenza Virus Vaccine,quad Im,preserve Free 2023-01-27 00:00:00 Completed [facility] Influenza Virus Vaccine,quad Im,preserve Free 2023-01-27 00:00:00 Completed [facility] Influenza Virus Vaccine,quad Im,preserve Free 2023-01-27 00:00:00 Completed [facility] Influenza Virus Vaccine,quad Im,preserve Free 2023-01-27 00:00:00 Completed [facility] Influenza Virus Vaccine,quad Im,preserve Free [id number] 00:00:00 Completed [facility] Influenza Virus Vaccine,quad Im,preserve Free 2023-01-27 00:00:00 Completed [facility] Influenza Virus Vaccine,quad Im,preserve Free 2023-01-27 00:00:00 Completed [facility] Influenza Virus Vaccine,quad Im,preserve Free [id number] 00:00:00 Completed [facility] Influenza Virus Vaccine,quad Im,preserve Free 2023-01-27 00:00:00 Completed [facility] Influenza Virus Vaccine,quad Im,preserve Free 2023-01-27 00:00:00 Completed [facility] Influenza Virus Vaccine,quad Im,preserve Free 2023-01-27 00:00:00 Completed [facility] Influenza Virus Vaccine,quad Im,preserve Free 2023-01-27 00:00:00 Completed [facility] Influenza Virus Vaccine,quad Im,preserve Free 2023-01-27 00:00:00 Completed [facility] Influenza Virus Vaccine,quad Im,preserve Free 2023-01-27 00:00:00 Completed [facility] Influenza Virus Vaccine,quad Im,preserve Free 2023-01-27 00:00:00 Completed [facility] Influenza Virus Vaccine,quad Im,preserve Free 2023-01-27 00:00:00 Completed [facility] Influenza Virus Vaccine,quad Im,preserve Free 2023-01-27 00:00:00 Completed [facility] Influenza Virus Vaccine,quad Im,preserve Free 2023-01-27 00:00:00 Completed [facility] Influenza Virus Vaccine,quad Im,preserve Free 2023-01-27 00:00:00 Completed [facility] Influenza Virus Vaccine,quad Im,preserve Free 2023-01-27 00:00:00 Completed [facility] Influenza Virus Vaccine,quad Im,preserve Free 65+ 2023-01-27 00:00:00 Completed [facility] Influenza Virus Vaccine,quad Im,preserve Free 65+ 2023-01-27 00:00:00 Completed [facility] Influenza Virus Vaccine,quad Im,preserve Free 65+ 2023-01-27 00:00:00 Completed [facility] Influenza Virus Vaccine,quad Im,preserve Free 65+ 2023-01-27 00:00:00 Completed [facility] Influenza Virus Vaccine,quad Im,preserve Free 65+ 2023-01-27 00:00:00 Completed [facility] Influenza Virus Vaccine,quad Im,preserve Free 65+ 2023-01-27 00:00:00 Completed [facility] Influenza Virus Vaccine,quad Im,preserve Free 65+ 2023-01-27 00:00:00 Completed [facility] Influenza Virus Vaccine,quad Im,preserve Free 65+ 2023-01-27 00:00:00 Completed [facility] Influenza Virus Vaccine,quad Im,preserve Free 65+ 2023-01-27 00:00:00 Completed [facility] Influenza Virus Vaccine,quad Im,preserve Free 65+ 2023-01-27 00:00:00 Completed [facility] Influenza Virus Vaccine,quad Im,preserve Free 65+ 2023-01-27 00:00:00 Completed [facility] Influenza Virus Vaccine,quad Im,preserve Free 65+ 2023-01-27 00:00:00 Completed [facility] Influenza Virus Vaccine,quad Im,preserve Free 65+ 2023-01-27 00:00:00 Completed [facility] Influenza Virus Vaccine,quad Im,preserve Free 65+ 2023-01-27 00:00:00 Completed [facility] Influenza Virus Vaccine,quad Im,preserve Free 65+ (FLUAD) 2023-01-27 00:00:00 Completed [facility] Influenza Virus Vaccine,quad Im,preserve Free 65+ (FLUAD) 2023-01-27 00:00:00 Completed [facility] Influenza Virus Vaccine,quad Im,preserve Free 65+ (FLUAD) 2023-01-27 00:00:00 Completed [facility] Influenza Virus Vaccine Quad ID 18-64 YRS 2021-12-31 00:00:00 Completed [facility] Influenza Virus Vaccine Quad ID 18-64 YRS 2021-12-31 00:00:00 Completed [facility] Influenza Virus Vaccine Quad ID 18-64 YRS 2021-12-31 00:00:00 Completed [facility] Influenza Virus Vaccine Quad ID 18-64 YRS 2021-12-31 00:00:00 Completed [facility] Influenza Virus Vaccine Quad ID 18-64 YRS 2021-12-31 00:00:00 Completed [facility] Influenza Virus Vaccine Quad ID 18-64 YRS 2021-12-31 00:00:00 Completed [facility] Influenza Virus Vaccine Quad ID 18-64 YRS 2021-12-31 00:00:00 Completed [facility] Influenza Virus Vaccine Quad ID 18-64 YRS 2021-12-31 00:00:00 Completed [facility] Influenza Virus Vaccine Quad ID 18-64 YRS 2021-12-31 00:00:00 Completed [facility] Influenza Virus Vaccine Quad ID 18-64 YRS 2021-12-31 00:00:00 Completed [facility] Influenza Virus Vaccine Quad ID 18-64 YRS 2021-12-31 00:00:00 Completed [facility] Influenza Virus Vaccine Quad ID 18-64 YRS 2021-12-31 00:00:00 Completed [facility] Influenza Virus Vaccine Quad ID 18-64 YRS 2021-12-31 00:00:00 Completed [facility] Influenza Virus Vaccine Quad ID 18-64 YRS 2021-12-31 00:00:00 Completed [facility] Influenza Virus Vaccine Quad ID 18-64 YRS 2021-12-31 00:00:00 Completed [facility] Influenza Virus Vaccine Quad ID 18-64 YRS 2021-12-31 00:00:00 Completed [facility] Influenza Virus Vaccine Quad ID 18-64 YRS 2021-12-31 00:00:00 Completed [facility] Influenza Virus Vaccine Quad ID 18-64 YRS 2021-12-31 00:00:00 Completed [facility] Influenza Virus Vaccine Quad ID 18-64 YRS 2021-12-31 00:00:00 Completed [facility] Influenza Virus Vaccine Quad ID 18-64 YRS 2021-12-31 00:00:00 Completed [facility] Influenza Virus Vaccine Quad ID 18-64 YRS 2021-12-31 00:00:00 Completed [facility] Influenza Virus Vaccine Quad ID 18-64 YRS 2021-12-31 00:00:00 Completed [facility] Influenza Virus Vaccine Quad ID 18-64 YRS 2021-12-31 00:00:00 Completed [facility] Influenza Virus Vaccine Quad ID 18-64 YRS 2021-12-31 00:00:00 Completed [facility] Influenza Virus Vaccine Quad ID 18-64 YRS 2021-12-31 00:00:00 Completed [facility] Influenza Virus Vaccine Quad ID 18-64 YRS 2021-12-31 00:00:00 Completed [facility] Influenza Virus Vaccine Quad ID 18-64 YRS 2021-12-31 00:00:00 Completed [facility] Influenza Virus Vaccine Quad ID 18-64 YRS 2021-12-31 00:00:00 Completed [facility] Influenza Virus Vaccine Quad ID 18-64 YRS 2021-12-31 00:00:00 Completed [facility] Influenza Virus Vaccine Quad ID 18-64 YRS 2021-12-31 00:00:00 Completed [facility] Influenza Virus Vaccine Quad ID 18-64 YRS 2021-12-31 00:00:00 Completed [facility] Influenza Virus Vaccine Quad ID 18-64 YRS 2021-12-31 00:00:00 Completed [facility] Influenza Virus Vaccine Quad ID 18-64 YRS 2021-12-31 00:00:00 Completed [facility] Influenza Virus Vaccine Quad ID 18-64 YRS 2021-12-31 00:00:00 Completed [facility] Influenza Virus Vaccine Quad ID 18-64 YRS 2021-12-31 00:00:00 Completed [facility] Influenza Virus Vaccine Quad ID 18-64 YRS 2021-12-31 00:00:00 Completed [facility] Influenza Virus Vaccine Quad ID 18-64 YRS 2021-12-31 00:00:00 Completed [facility] Influenza Virus Vaccine Quad ID 18-64 YRS 2021-12-31 00:00:00 Completed [facility] Influenza Virus Vaccine Quad ID 18-64 YRS 2021-12-31 00:00:00 Completed [facility] Influenza Virus Vaccine Quad ID 18-64 YRS 2021-12-31 00:00:00 Completed [facility] Influenza Virus Vaccine Quad ID 18-64 YRS 2021-12-31 00:00:00 Completed [facility] Influenza Virus Vaccine Quad ID 18-64 YRS 2021-12-31 00:00:00 Completed [facility] Influenza Virus Vaccine Quad ID 18-64 YRS 2021-12-31 00:00:00 Completed [facility] Influenza Virus Vaccine Quad ID 18-64 YRS 2021-12-31 00:00:00 Completed [facility] Influenza Virus Vaccine Quad ID 18-64 YRS 2021-12-31 00:00:00 Completed [facility] Influenza Virus Vaccine Quad ID 18-64 YRS 2021-12-31 00:00:00 Completed [facility] Influenza Virus Vaccine Quad ID 18-64 YRS 2021-12-31 00:00:00 Completed [facility] Influenza Virus Vaccine Quad ID 18-64 YRS 2021-12-31 00:00:00 Completed [facility] Influenza Virus Vaccine Quad ID 18-64 YRS 2021-12-31 00:00:00 Completed [facility] Influenza Virus Vaccine Quad ID 18-64 YRS 2021-12-31 00:00:00 Completed [facility] Influenza Virus Vaccine Quad ID 18-64 YRS 2021-12-31 00:00:00 Completed [facility] Influenza Virus Vaccine Quad ID 18-64 YRS 2021-12-31 00:00:00 Completed [facility] Influenza Virus Vaccine Quad ID 18-64 YRS 2021-12-31 00:00:00 Completed [facility] Influenza Virus Vaccine Quad ID 18-64 YRS 2021-12-31 00:00:00 Completed [facility] Influenza Virus Vaccine Quad ID 18-64 YRS 2021-12-31 00:00:00 Completed [facility] Influenza Virus Vaccine Quad ID 18-64 YRS 2021-12-31 00:00:00 Completed [facility] Influenza Virus Vaccine Quad ID 18-64 YRS 2021-12-31 00:00:00 Completed [facility] Influenza Virus Vaccine Quad ID 18-64 YRS 2021-12-31 00:00:00 Completed [facility] Influenza Virus Vaccine Quad ID 18-64 YRS 2021-12-31 00:00:00 Completed [facility] Influenza Virus Vaccine Quad ID 18-64 YRS 2021-12-31 00:00:00 Completed [facility] Influenza Virus Vaccine Quad ID 18-64 YRS 2021-12-31 00:00:00 Completed [facility] Influenza Virus Vaccine Quad ID 18-64 YRS 2021-12-31 00:00:00 Completed [facility] Influenza Virus Vaccine Quad ID 18-64 YRS 2021-12-31 00:00:00 Completed [facility] Influenza Virus Vaccine Quad ID 18-64 YRS 2021-12-31 00:00:00 Completed [facility] Influenza Virus Vaccine Quad ID 18-64 YRS 2021-12-31 00:00:00 Completed [facility] Influenza Virus Vaccine Quad ID 18-64 YRS 2021-12-31 00:00:00 Completed [facility] Influenza Virus Vaccine Quad ID 18-64 YRS 2021-12-31 00:00:00 Completed [facility] Influenza Virus Vaccine Quad ID 18-64 YRS 2021-12-31 00:00:00 Completed [facility] Influenza Virus Vaccine Quad ID 18-64 YRS 2021-12-31 00:00:00 Completed [facility] Influenza Virus Vaccine Quad ID 18-64 YRS 2021-12-31 00:00:00 Completed [facility] Influenza Virus Vaccine Quad ID 18-64 YRS 2021-12-31 00:00:00 Completed [facility] Influenza Virus Vaccine Quad ID 18-64 YRS 2021-12-31 00:00:00 Completed [facility] Influenza Virus Vaccine Quad ID 18-64 YRS 2021-12-31 00:00:00 Completed [facility] Influenza Virus Vaccine Quad ID 18-64 YRS 2021-12-31 00:00:00 Completed [facility] Influenza Virus Vaccine Quad ID 18-64 YRS 2021-12-31 00:00:00 Completed [facility] Influenza Virus Vaccine Quad ID 18-64 YRS 2021-12-31 00:00:00 Completed [facility] Influenza Virus Vaccine Quad ID 18-64 YRS 2021-12-31 00:00:00 Completed [facility] Influenza Virus Vaccine Quad ID 18-64 YRS 2021-12-31 00:00:00 Completed [facility] Influenza Virus Vaccine Quad ID 18-64 YRS 2021-12-31 00:00:00 Completed [facility] Influenza Virus Vaccine Quad ID 18-64 YRS 2021-12-31 00:00:00 Completed [facility] Influenza Virus Vaccine Quad ID 18-64 YRS 2021-12-31 00:00:00 Completed [facility] Influenza Virus Vaccine Quad ID 18-64 YRS 2021-12-31 00:00:00 Completed [facility] Influenza Virus Vaccine Quad ID 18-64 YRS 2021-12-31 00:00:00 Completed [facility] Influenza Virus Vaccine Quad ID 18-64 YRS 2021-12-31 00:00:00 Completed [facility] Influenza Virus Vaccine Quad ID 18-64 YRS 2021-12-31 00:00:00 Completed [facility] Influenza Virus Vaccine Quad ID 18-64 YRS 2021-12-31 00:00:00 Completed [facility] Influenza Virus Vaccine Quad ID 18-64 YRS 2021-12-31 00:00:00 Completed [facility] Influenza Virus Vaccine Quad ID 18-64 YRS 2021-12-31 00:00:00 Completed [facility] Influenza Virus Vaccine Quad ID 18-64 YRS 2021-12-31 00:00:00 Completed [facility] Influenza Virus Vaccine Quad ID 18-64 YRS 2021-12-31 00:00:00 Completed [facility] Influenza Virus Vaccine Quad ID 18-64 YRS 2021-12-31 00:00:00 Completed [facility] Influenza Virus Vaccine Quad ID 18-64 YRS 2021-12-31 00:00:00 Completed [facility] Influenza Virus Vaccine Quad ID 18-64 YRS 2021-12-31 00:00:00 Completed [facility] Influenza Virus Vaccine Quad ID 18-64 YRS 2021-12-31 00:00:00 Completed [facility] Influenza Virus Vaccine Quad ID 18-64 YRS 2021-12-31 00:00:00 Completed [facility] Influenza Virus Vaccine Quad ID 18-64 YRS 2021-12-31 00:00:00 Completed [facility] Influenza Virus Vaccine Quad ID 18-64 YRS 2021-12-31 00:00:00 Completed [facility] Influenza Virus Vaccine Quad ID 18-64 YRS 2021-12-31 00:00:00 Completed [facility] Influenza Virus Vaccine Quad ID 18-64 YRS 2021-12-31 00:00:00 Completed [facility] Influenza Virus Vaccine Quad ID 18-64 YRS 2021-12-31 00:00:00 Completed [facility] Influenza Virus Vaccine Quad ID 18-64 YRS 2021-12-31 00:00:00 Completed [facility] Influenza Virus Vaccine Quad ID 18-64 YRS 2021-12-31 00:00:00 Completed [facility] Influenza Virus Vaccine Quad ID 18-64 YRS 2021-12-31 00:00:00 Completed [facility] Influenza Virus Vaccine Quad ID 18-64 YRS 2021-12-31 00:00:00 Completed [facility] Influenza Virus Vaccine Quad ID 18-64 YRS 2021-12-31 00:00:00 Completed [facility] Influenza Virus Vaccine Quad ID 18-64 YRS 2021-12-31 00:00:00 Completed [facility] Influenza Virus Vaccine Quad ID 18-64 YRS 2021-12-31 00:00:00 Completed [facility] Influenza Virus Vaccine Quad ID 18-64 YRS 2021-12-31 00:00:00 Completed [facility] Pneumococcal Polysaccharide, PPSV23 (PNEUMOVAX) 2021-12-24 00:00:00 Completed [facility] Pneumococcal Polysaccharide, PPSV23 (PNEUMOVAX) 2021-12-24 00:00:00 Completed [facility] Pneumococcal Polysaccharide, PPSV23 (PNEUMOVAX) 2021-12-24 00:00:00 Completed [facility] Pneumococcal Polysaccharide, PPSV23 (PNEUMOVAX) 2021-12-24 00:00:00 Completed [facility] Pneumococcal Polysaccharide, PPSV23 (PNEUMOVAX) 2021-12-24 00:00:00 Completed [facility] Pneumococcal Polysaccharide, PPSV23 (PNEUMOVAX) 2021-12-24 00:00:00 Completed [facility] Pneumococcal Polysaccharide, PPSV23 (PNEUMOVAX) 2021-12-24 00:00:00 Completed [facility] Pneumococcal Polysaccharide, PPSV23 (PNEUMOVAX) 2021-12-24 00:00:00 Completed [facility] Pneumococcal Polysaccharide, PPSV23 (PNEUMOVAX) 2021-12-24 00:00:00 Completed [facility] Pneumococcal Polysaccharide, PPSV23 (PNEUMOVAX) 2021-12-24 00:00:00 Completed [facility] Pneumococcal Polysaccharide, PPSV23 (PNEUMOVAX) 2021-12-24 00:00:00 Completed [facility] Pneumococcal Polysaccharide, PPSV23 (PNEUMOVAX) 2021-12-24 00:00:00 Completed [facility] Pneumococcal Polysaccharide, PPSV23 (PNEUMOVAX) 2021-12-24 00:00:00 Completed [facility] Pneumococcal Polysaccharide, PPSV23 (PNEUMOVAX) 2021-12-24 00:00:00 Completed [facility] Pneumococcal Polysaccharide, PPSV23 (PNEUMOVAX) 2021-12-24 00:00:00 Completed [facility] Pneumococcal Polysaccharide, PPSV23 (PNEUMOVAX) 2021-12-24 00:00:00 Completed [facility] Pneumococcal Polysaccharide, PPSV23 (PNEUMOVAX) 2021-12-24 00:00:00 Completed [facility] Pneumococcal Polysaccharide, PPSV23 (PNEUMOVAX) 2021-12-24 00:00:00 Completed [facility] Pneumococcal Polysaccharide, PPSV23 (PNEUMOVAX) 2021-12-24 00:00:00 Completed [facility] Pneumococcal Polysaccharide, PPSV23 (PNEUMOVAX) 2021-12-24 00:00:00 Completed [facility] Pneumococcal Polysaccharide, PPSV23 (PNEUMOVAX) 2021-12-24 00:00:00 Completed [facility] Pneumococcal Polysaccharide, PPSV23 (PNEUMOVAX) 2021-12-24 00:00:00 Completed [facility] Pneumococcal Polysaccharide, PPSV23 (PNEUMOVAX) 2021-12-24 00:00:00 Completed [facility] Pneumococcal Polysaccharide, PPSV23 (PNEUMOVAX) 2021-12-24 00:00:00 Completed [facility] Pneumococcal Polysaccharide, PPSV23 (PNEUMOVAX) 2021-12-24 00:00:00 Completed [facility] Pneumococcal Polysaccharide, PPSV23 (PNEUMOVAX) 2021-12-24 00:00:00 Completed [facility] Pneumococcal Polysaccharide, PPSV23 (PNEUMOVAX) 2021-12-24 00:00:00 Completed [facility] Pneumococcal Polysaccharide, PPSV23 (PNEUMOVAX) 2021-12-24 00:00:00 Completed [facility] Pneumococcal Polysaccharide, PPSV23 (PNEUMOVAX) 2021-12-24 00:00:00 Completed [facility] Pneumococcal Polysaccharide, PPSV23 (PNEUMOVAX) 2021-12-24 00:00:00 Completed [facility] Pneumococcal Polysaccharide, PPSV23 (PNEUMOVAX) 2021-12-24 00:00:00 Completed [facility] Pneumococcal Polysaccharide, PPSV23 (PNEUMOVAX) 2021-12-24 00:00:00 Completed [facility] Pneumococcal Polysaccharide, PPSV23 (PNEUMOVAX) 2021-12-24 00:00:00 Completed [facility] Pneumococcal Polysaccharide, PPSV23 (PNEUMOVAX) 2021-12-24 00:00:00 Completed [facility] Pneumococcal Polysaccharide, PPSV23 (PNEUMOVAX) 2021-12-24 00:00:00 Completed [facility] Pneumococcal Polysaccharide, PPSV23 (PNEUMOVAX) 2021-12-24 00:00:00 Completed [facility] Pneumococcal Polysaccharide, PPSV23 (PNEUMOVAX) 2021-12-24 00:00:00 Completed [facility] Pneumococcal Polysaccharide, PPSV23 (PNEUMOVAX) 2021-12-24 00:00:00 Completed [facility] Pneumococcal Polysaccharide, PPSV23 (PNEUMOVAX) 2021-12-24 00:00:00 Completed [facility] Pneumococcal Polysaccharide, PPSV23 (PNEUMOVAX) 2021-12-24 00:00:00 Completed [facility] Pneumococcal Polysaccharide, PPSV23 (PNEUMOVAX) 2021-12-24 00:00:00 Completed [facility] Pneumococcal Polysaccharide, PPSV23 (PNEUMOVAX) 2021-12-24 00:00:00 Completed [facility] Pneumococcal Polysaccharide, PPSV23 (PNEUMOVAX) 2021-12-24 00:00:00 Completed [facility] Pneumococcal Polysaccharide, PPSV23 (PNEUMOVAX) 2021-12-24 00:00:00 Completed [facility] Pneumococcal Polysaccharide, PPSV23 (PNEUMOVAX) 2021-12-24 00:00:00 Completed [facility] Pneumococcal Polysaccharide, PPSV23 (PNEUMOVAX) 2021-12-24 00:00:00 Completed [facility] Pneumococcal Polysaccharide, PPSV23 (PNEUMOVAX) 2021-12-24 00:00:00 Completed [facility] Pneumococcal Polysaccharide, PPSV23 (PNEUMOVAX) 2021-12-24 00:00:00 Completed [facility] Pneumococcal Polysaccharide, PPSV23 (PNEUMOVAX) 2021-12-24 00:00:00 Completed [facility] Pneumococcal Polysaccharide, PPSV23 (PNEUMOVAX) 2021-12-24 00:00:00 Completed [facility] Pneumococcal Polysaccharide, PPSV23 (PNEUMOVAX) 2021-12-24 00:00:00 Completed [facility] Pneumococcal Polysaccharide, PPSV23 (PNEUMOVAX) 2021-12-24 00:00:00 Completed [facility] Pneumococcal Polysaccharide, PPSV23 (PNEUMOVAX) 2021-12-24 00:00:00 Completed [facility] Pneumococcal Polysaccharide, PPSV23 (PNEUMOVAX) 2021-12-24 00:00:00 Completed [facility] Pneumococcal Polysaccharide, PPSV23 (PNEUMOVAX) 2021-12-24 00:00:00 Completed [facility] Pneumococcal Polysaccharide, PPSV23 (PNEUMOVAX) 2021-12-24 00:00:00 Completed [facility] Pneumococcal Polysaccharide, PPSV23 (PNEUMOVAX) 2021-12-24 00:00:00 Completed [facility] Pneumococcal Polysaccharide, PPSV23 (PNEUMOVAX) 2021-12-24 00:00:00 Completed [facility] Pneumococcal Polysaccharide, PPSV23 (PNEUMOVAX) 2021-12-24 00:00:00 Completed [facility] Pneumococcal Polysaccharide, PPSV23 (PNEUMOVAX) 2021-12-24 00:00:00 Completed [facility] Pneumococcal Polysaccharide, PPSV23 (PNEUMOVAX) 2021-12-24 00:00:00 Completed [facility] Pneumococcal Polysaccharide, PPSV23 (PNEUMOVAX) 2021-12-24 00:00:00 Completed [facility] Pneumococcal Polysaccharide, PPSV23 (PNEUMOVAX) 2021-12-24 00:00:00 Completed [facility] Pneumococcal Polysaccharide, PPSV23 (PNEUMOVAX) 2021-12-24 00:00:00 Completed [facility] Pneumococcal Polysaccharide, PPSV23 (PNEUMOVAX) 2021-12-24 00:00:00 Completed [facility] Pneumococcal Polysaccharide, PPSV23 (PNEUMOVAX) 2021-12-24 00:00:00 Completed [facility] Pneumococcal Polysaccharide, PPSV23 (PNEUMOVAX) 2021-12-24 00:00:00 Completed [facility] Pneumococcal Polysaccharide, PPSV23 (PNEUMOVAX) 2021-12-24 00:00:00 Completed [facility] Pneumococcal Polysaccharide, PPSV23 (PNEUMOVAX) 2021-12-24 00:00:00 Completed [facility] Pneumococcal Polysaccharide, PPSV23 (PNEUMOVAX) 2021-12-24 00:00:00 Completed [facility] Pneumococcal Polysaccharide, PPSV23 (PNEUMOVAX) 2021-12-24 00:00:00 Completed [facility] Pneumococcal Polysaccharide, PPSV23 (PNEUMOVAX) 2021-12-24 00:00:00 Completed [facility] Pneumococcal Polysaccharide, PPSV23 (PNEUMOVAX) 2021-12-24 00:00:00 Completed [facility] Pneumococcal Polysaccharide, PPSV23 (PNEUMOVAX) 2021-12-24 00:00:00 Completed [facility] Pneumococcal Polysaccharide, PPSV23 (PNEUMOVAX) 2021-12-24 00:00:00 Completed [facility] Pneumococcal Polysaccharide, PPSV23 (PNEUMOVAX) 2021-12-24 00:00:00 Completed [facility] Pneumococcal Polysaccharide, PPSV23 (PNEUMOVAX) 2021-12-24 00:00:00 Completed [facility] Pneumococcal Polysaccharide, PPSV23 (PNEUMOVAX) 2021-12-24 00:00:00 Completed [facility] Pneumococcal Polysaccharide, PPSV23 (PNEUMOVAX) 2021-12-24 00:00:00 Completed [facility] Pneumococcal Polysaccharide, PPSV23 (PNEUMOVAX) 2021-12-24 00:00:00 Completed [facility] Pneumococcal Polysaccharide, PPSV23 (PNEUMOVAX) 2021-12-24 00:00:00 Completed [facility] Pneumococcal Polysaccharide, PPSV23 (PNEUMOVAX) 2021-12-24 00:00:00 Completed [facility] Pneumococcal Polysaccharide, PPSV23 (PNEUMOVAX) 2021-12-24 00:00:00 Completed [facility] Pneumococcal Polysaccharide, PPSV23 (PNEUMOVAX) 2021-12-24 00:00:00 Completed [facility] Pneumococcal Polysaccharide, PPSV23 (PNEUMOVAX) 2021-12-24 00:00:00 Completed [facility] Pneumococcal Polysaccharide, PPSV23 (PNEUMOVAX) 2021-12-24 00:00:00 Completed [facility] Pneumococcal Polysaccharide, PPSV23 (PNEUMOVAX) 2021-12-24 00:00:00 Completed [facility] Pneumococcal Polysaccharide, PPSV23 (PNEUMOVAX) 2021-12-24 00:00:00 Completed [facility] Pneumococcal Polysaccharide, PPSV23 (PNEUMOVAX) 2021-12-24 00:00:00 Completed [facility] Pneumococcal Polysaccharide, PPSV23 (PNEUMOVAX) 2021-12-24 00:00:00 Completed [facility] Pneumococcal Polysaccharide, PPSV23 (PNEUMOVAX) 2021-12-24 00:00:00 Completed [facility] Pneumococcal Polysaccharide, PPSV23 (PNEUMOVAX) 2021-12-24 00:00:00 Completed [facility] Pneumococcal Polysaccharide, PPSV23 (PNEUMOVAX) 2021-12-24 00:00:00 Completed [facility] Pneumococcal Polysaccharide, PPSV23 (PNEUMOVAX) 2021-12-24 00:00:00 Completed [facility] Pneumococcal Polysaccharide, PPSV23 (PNEUMOVAX) 2021-12-24 00:00:00 Completed [facility] Pneumococcal Polysaccharide, PPSV23 (PNEUMOVAX) 2021-12-24 00:00:00 Completed [facility] Pneumococcal Polysaccharide, PPSV23 (PNEUMOVAX) 2021-12-24 00:00:00 Completed [facility] Pneumococcal Polysaccharide, PPSV23 (PNEUMOVAX) 2021-12-24 00:00:00 Completed [facility] Pneumococcal Polysaccharide, PPSV23 (PNEUMOVAX) 2021-12-24 00:00:00 Completed [facility] Pneumococcal Polysaccharide, PPSV23 (PNEUMOVAX) 2021-12-24 00:00:00 Completed [facility] Pneumococcal Polysaccharide, PPSV23 (PNEUMOVAX) 2021-12-24 00:00:00 Completed [facility] Pneumococcal Polysaccharide, PPSV23 (PNEUMOVAX) 2021-12-24 00:00:00 Completed [facility] Pneumococcal Polysaccharide, PPSV23 (PNEUMOVAX) 2021-12-24 00:00:00 Completed [facility] Pneumococcal Polysaccharide, PPSV23 (PNEUMOVAX) 2021-12-24 00:00:00 Completed [facility] Pneumococcal Polysaccharide, PPSV23 (PNEUMOVAX) 2021-12-24 00:00:00 Completed [facility] Pneumococcal Polysaccharide, PPSV23 (PNEUMOVAX) 2021-12-24 00:00:00 Completed [facility] Pneumococcal Polysaccharide, PPSV23 (PNEUMOVAX) 2021-12-24 00:00:00 Completed [facility] Pneumococcal Polysaccharide, PPSV23 (PNEUMOVAX) 2021-12-24 00:00:00 Completed [facility] SARS-COV-2 COVID-19 PFIZER VACCINE 2021-02-09 00:00:00 Completed [facility] SARS-COV-2 COVID-19 PFIZER VACCINE 2021-02-09 00:00:00 Completed [facility] SARS-COV-2 COVID-19 PFIZER VACCINE 2021-02-09 00:00:00 Completed [facility] SARS-COV-2 COVID-19 PFIZER VACCINE 2021-02-09 00:00:00 Completed [facility] SARS-COV-2 COVID-19 PFIZER VACCINE 2021-02-09 00:00:00 Completed [facility] SARS-COV-2 COVID-19 PFIZER VACCINE 2021-02-09 00:00:00 Completed [facility] SARS-COV-2 COVID-19 PFIZER VACCINE 2021-02-09 00:00:00 Completed [facility] SARS-COV-2 COVID-19 PFIZER VACCINE 2021-02-09 00:00:00 Completed [facility] SARS-COV-2 COVID-19 PFIZER VACCINE 2021-02-09 00:00:00 Completed [facility] SARS-COV-2 COVID-19 PFIZER VACCINE 2021-02-09 00:00:00 Completed [facility] SARS-COV-2 COVID-19 PFIZER VACCINE 2021-02-09 00:00:00 Completed [facility] SARS-COV-2 COVID-19 PFIZER VACCINE 2021-02-09 00:00:00 Completed [facility] SARS-COV-2 COVID-19 PFIZER VACCINE 2021-02-09 00:00:00 Completed [facility] SARS-COV-2 COVID-19 PFIZER VACCINE 2021-02-09 00:00:00 Completed [facility] SARS-COV-2 COVID-19 PFIZER VACCINE 2021-02-09 00:00:00 Completed [facility] SARS-COV-2 COVID-19 PFIZER VACCINE 2021-02-09 00:00:00 Completed [facility] SARS-COV-2 COVID-19 PFIZER VACCINE 2021-02-09 00:00:00 Completed [facility] SARS-COV-2 COVID-19 PFIZER VACCINE 2021-02-09 00:00:00 Completed [facility] SARS-COV-2 COVID-19 PFIZER VACCINE 2021-02-09 00:00:00 Completed [facility] SARS-COV-2 COVID-19 PFIZER VACCINE 2021-02-09 00:00:00 Completed [facility] SARS-COV-2 COVID-19 PFIZER VACCINE 2021-02-09 00:00:00 Completed [facility] SARS-COV-2 COVID-19 PFIZER VACCINE 2021-02-09 00:00:00 Completed [facility] SARS-COV-2 COVID-19 PFIZER VACCINE 2021-02-09 00:00:00 Completed [facility] SARS-COV-2 COVID-19 PFIZER VACCINE 2021-02-09 00:00:00 Completed [facility] SARS-COV-2 COVID-19 PFIZER VACCINE 2021-02-09 00:00:00 Completed [facility] SARS-COV-2 COVID-19 PFIZER VACCINE 2021-02-09 00:00:00 Completed [facility] SARS-COV-2 COVID-19 PFIZER VACCINE 2021-02-09 00:00:00 Completed [facility] SARS-COV-2 COVID-19 PFIZER VACCINE 2021-02-09 00:00:00 Completed [facility] SARS-COV-2 COVID-19 PFIZER VACCINE 2021-02-09 00:00:00 Completed [facility] SARS-COV-2 COVID-19 PFIZER VACCINE 2021-02-09 00:00:00 Completed [facility] SARS-COV-2 COVID-19 PFIZER VACCINE 2021-02-09 00:00:00 Completed [facility] SARS-COV-2 COVID-19 PFIZER VACCINE 2021-02-09 00:00:00 Completed [facility] SARS-COV-2 COVID-19 PFIZER VACCINE 2021-02-09 00:00:00 Completed [facility] SARS-COV-2 COVID-19 PFIZER VACCINE 2021-02-09 00:00:00 Completed [facility] SARS-COV-2 COVID-19 PFIZER VACCINE 2021-02-09 00:00:00 Completed [facility] SARS-COV-2 COVID-19 PFIZER VACCINE 2021-02-09 00:00:00 Completed [facility] SARS-COV-2 COVID-19 PFIZER VACCINE 2021-02-09 00:00:00 Completed [facility] SARS-COV-2 COVID-19 PFIZER VACCINE 2021-02-09 00:00:00 Completed [facility] SARS-COV-2 COVID-19 PFIZER VACCINE 2021-02-09 00:00:00 Completed [facility] SARS-COV-2 COVID-19 PFIZER VACCINE 2021-02-09 00:00:00 Completed [facility] SARS-COV-2 COVID-19 PFIZER VACCINE 2021-02-09 00:00:00 Completed [facility] SARS-COV-2 COVID-19 PFIZER VACCINE 2021-02-09 00:00:00 Completed [facility] SARS-COV-2 COVID-19 PFIZER VACCINE 2021-02-09 00:00:00 Completed [facility] SARS-COV-2 COVID-19 PFIZER VACCINE 2021-02-09 00:00:00 Completed [facility] SARS-COV-2 COVID-19 PFIZER VACCINE 2021-02-09 00:00:00 Completed [facility] SARS-COV-2 COVID-19 PFIZER VACCINE 2021-02-09 00:00:00 Completed [facility] SARS-COV-2 COVID-19 PFIZER VACCINE 2021-02-09 00:00:00 Completed [facility] SARS-COV-2 COVID-19 PFIZER VACCINE 2021-02-09 00:00:00 Completed [facility] SARS-COV-2 COVID-19 PFIZER VACCINE 2021-02-09 00:00:00 Completed [facility] SARS-COV-2 COVID-19 PFIZER VACCINE 2021-02-09 00:00:00 Completed [facility] SARS-COV-2 COVID-19 PFIZER VACCINE 2021-02-09 00:00:00 Completed [facility] SARS-COV-2 COVID-19 PFIZER VACCINE 2021-02-09 00:00:00 Completed [facility] SARS-COV-2 COVID-19 PFIZER VACCINE 2021-02-09 00:00:00 Completed [facility] SARS-COV-2 COVID-19 PFIZER VACCINE 2021-02-09 00:00:00 Completed [facility] SARS-COV-2 COVID-19 PFIZER VACCINE 2021-02-09 00:00:00 Completed [facility] SARS-COV-2 COVID-19 PFIZER VACCINE 2021-02-09 00:00:00 Completed [facility] SARS-COV-2 COVID-19 PFIZER VACCINE 2021-02-09 00:00:00 Completed [facility] SARS-COV-2 COVID-19 PFIZER VACCINE 2021-02-09 00:00:00 Completed [facility] SARS-COV-2 COVID-19 PFIZER VACCINE 2021-02-09 00:00:00 Completed [facility] SARS-COV-2 COVID-19 PFIZER VACCINE 2021-02-09 00:00:00 Completed [facility] SARS-COV-2 COVID-19 PFIZER VACCINE 2021-02-09 00:00:00 Completed [facility] SARS-COV-2 COVID-19 PFIZER VACCINE 2021-02-09 00:00:00 Completed [facility] SARS-COV-2 COVID-19 PFIZER VACCINE 2021-02-09 00:00:00 Completed [facility] SARS-COV-2 COVID-19 PFIZER VACCINE 2021-02-09 00:00:00 Completed [facility] SARS-COV-2 COVID-19 PFIZER VACCINE 2021-02-09 00:00:00 Completed [facility] SARS-COV-2 COVID-19 PFIZER VACCINE 2021-02-09 00:00:00 Completed [facility] SARS-COV-2 COVID-19 PFIZER VACCINE 2021-02-09 00:00:00 Completed [facility] SARS-COV-2 COVID-19 PFIZER VACCINE 2021-02-09 00:00:00 Completed [facility] SARS-COV-2 COVID-19 PFIZER VACCINE 2021-02-09 00:00:00 Completed [facility] SARS-COV-2 COVID-19 PFIZER VACCINE 2021-02-09 00:00:00 Completed [facility] SARS-COV-2 COVID-19 PFIZER VACCINE 2021-02-09 00:00:00 Completed [facility] SARS-COV-2 COVID-19 PFIZER VACCINE 2021-02-09 00:00:00 Completed [facility] SARS-COV-2 COVID-19 PFIZER VACCINE 2021-02-09 00:00:00 Completed [facility] SARS-COV-2 COVID-19 PFIZER VACCINE 2021-02-09 00:00:00 Completed [facility] SARS-COV-2 COVID-19 PFIZER VACCINE 2021-02-09 00:00:00 Completed [facility] SARS-COV-2 COVID-19 PFIZER VACCINE 2021-02-09 00:00:00 Completed [facility] SARS-COV-2 COVID-19 PFIZER VACCINE 2021-02-09 00:00:00 Completed [facility] SARS-COV-2 COVID-19 PFIZER VACCINE 2021-02-09 00:00:00 Completed [facility] SARS-COV-2 COVID-19 PFIZER VACCINE 2021-02-09 00:00:00 Completed [facility] SARS-COV-2 COVID-19 PFIZER VACCINE 2021-02-09 00:00:00 Completed [facility] SARS-COV-2 COVID-19 PFIZER VACCINE 2021-02-09 00:00:00 Completed [facility] SARS-COV-2 COVID-19 PFIZER VACCINE 2021-02-09 00:00:00 Completed [facility] SARS-COV-2 COVID-19 PFIZER VACCINE 2021-02-09 00:00:00 Completed [facility] SARS-COV-2 COVID-19 PFIZER VACCINE 2021-02-09 00:00:00 Completed [facility] SARS-COV-2 COVID-19 PFIZER VACCINE 2021-02-09 00:00:00 Completed [facility] SARS-COV-2 COVID-19 PFIZER VACCINE 2021-02-09 00:00:00 Completed [facility] SARS-COV-2 COVID-19 PFIZER VACCINE 2021-02-09 00:00:00 Completed [facility] SARS-COV-2 COVID-19 PFIZER VACCINE 2021-02-09 00:00:00 Completed [facility] SARS-COV-2 COVID-19 PFIZER VACCINE 2021-02-09 00:00:00 Completed [facility] SARS-COV-2 COVID-19 PFIZER VACCINE 2021-02-09 00:00:00 Completed [facility] SARS-COV-2 COVID-19 PFIZER VACCINE 2021-02-09 00:00:00 Completed [facility] SARS-COV-2 COVID-19 PFIZER VACCINE 2021-02-09 00:00:00 Completed [facility] SARS-COV-2 COVID-19 PFIZER VACCINE 2021-02-09 00:00:00 Completed [facility] SARS-COV-2 COVID-19 PFIZER VACCINE 2021-02-09 00:00:00 Completed [facility] SARS-COV-2 COVID-19 PFIZER VACCINE 2021-02-09 00:00:00 Completed [facility] SARS-COV-2 COVID-19 PFIZER VACCINE 2021-02-09 00:00:00 Completed [facility] SARS-COV-2 COVID-19 PFIZER VACCINE 2021-02-09 00:00:00 Completed [facility] SARS-COV-2 COVID-19 PFIZER VACCINE 2021-02-09 00:00:00 Completed [facility] SARS-COV-2 COVID-19 PFIZER VACCINE 2021-02-09 00:00:00 Completed [facility] SARS-COV-2 COVID-19 PFIZER VACCINE 2021-02-09 00:00:00 Completed [facility] SARS-COV-2 COVID-19 PFIZER VACCINE 2021-02-09 00:00:00 Completed [facility] SARS-COV-2 COVID-19 PFIZER VACCINE 2021-02-09 00:00:00 Completed [facility] SARS-COV-2 COVID-19 PFIZER VACCINE 2021-02-09 00:00:00 Completed [facility] SARS-COV-2 COVID-19 PFIZER VACCINE 2021-02-09 00:00:00 Completed [facility] SARS-COV-2 COVID-19 PFIZER VACCINE 2021-02-09 00:00:00 Completed [facility] SARS-COV-2 COVID-19 PFIZER VACCINE 2021-02-09 00:00:00 Completed [facility] SARS-COV-2 COVID-19 PFIZER VACCINE 2021-02-09 00:00:00 Completed [facility] SARS-COV-2 COVID-19 PFIZER VACCINE 2021-02-09 00:00:00 Completed [facility] SARS-COV-2 COVID-19 PFIZER VACCINE 2021-01-19 00:00:00 Completed [facility] SARS-COV-2 COVID-19 PFIZER VACCINE 2021-01-19 00:00:00 Completed [facility] SARS-COV-2 COVID-19 PFIZER VACCINE 2021-01-19 00:00:00 Completed [facility] SARS-COV-2 COVID-19 PFIZER VACCINE 2021-01-19 00:00:00 Completed [facility] SARS-COV-2 COVID-19 PFIZER VACCINE 2021-01-19 00:00:00 Completed [facility] SARS-COV-2 COVID-19 PFIZER VACCINE 2021-01-19 00:00:00 Completed [facility] SARS-COV-2 COVID-19 PFIZER VACCINE 2021-01-19 00:00:00 Completed [facility] SARS-COV-2 COVID-19 PFIZER VACCINE 2021-01-19 00:00:00 Completed [facility] SARS-COV-2 COVID-19 PFIZER VACCINE 2021-01-19 00:00:00 Completed [facility] SARS-COV-2 COVID-19 PFIZER VACCINE 2021-01-19 00:00:00 Completed [facility] SARS-COV-2 COVID-19 PFIZER VACCINE 2021-01-19 00:00:00 Completed [facility] SARS-COV-2 COVID-19 PFIZER VACCINE 2021-01-19 00:00:00 Completed [facility] SARS-COV-2 COVID-19 PFIZER VACCINE 2021-01-19 00:00:00 Completed [facility] SARS-COV-2 COVID-19 PFIZER VACCINE 2021-01-19 00:00:00 Completed [facility] SARS-COV-2 COVID-19 PFIZER VACCINE 2021-01-19 00:00:00 Completed [facility] SARS-COV-2 COVID-19 PFIZER VACCINE 2021-01-19 00:00:00 Completed [facility] SARS-COV-2 COVID-19 PFIZER VACCINE 2021-01-19 00:00:00 Completed [facility] SARS-COV-2 COVID-19 PFIZER VACCINE 2021-01-19 00:00:00 Completed [facility] SARS-COV-2 COVID-19 PFIZER VACCINE 2021-01-19 00:00:00 Completed [facility] SARS-COV-2 COVID-19 PFIZER VACCINE 2021-01-19 00:00:00 Completed [facility] SARS-COV-2 COVID-19 PFIZER VACCINE 2021-01-19 00:00:00 Completed [facility] SARS-COV-2 COVID-19 PFIZER VACCINE 2021-01-19 00:00:00 Completed [facility] SARS-COV-2 COVID-19 PFIZER VACCINE 2021-01-19 00:00:00 Completed [facility] SARS-COV-2 COVID-19 PFIZER VACCINE 2021-01-19 00:00:00 Completed [facility] SARS-COV-2 COVID-19 PFIZER VACCINE 2021-01-19 00:00:00 Completed [facility] SARS-COV-2 COVID-19 PFIZER VACCINE 2021-01-19 00:00:00 Completed [facility] SARS-COV-2 COVID-19 PFIZER VACCINE 2021-01-19 00:00:00 Completed [facility] SARS-COV-2 COVID-19 PFIZER VACCINE 2021-01-19 00:00:00 Completed [facility] SARS-COV-2 COVID-19 PFIZER VACCINE 2021-01-19 00:00:00 Completed [facility] SARS-COV-2 COVID-19 PFIZER VACCINE 2021-01-19 00:00:00 Completed [facility] SARS-COV-2 COVID-19 PFIZER VACCINE 2021-01-19 00:00:00 Completed [facility] SARS-COV-2 COVID-19 PFIZER VACCINE 2021-01-19 00:00:00 Completed [facility] SARS-COV-2 COVID-19 PFIZER VACCINE 2021-01-19 00:00:00 Completed [facility] SARS-COV-2 COVID-19 PFIZER VACCINE 2021-01-19 00:00:00 Completed [facility] SARS-COV-2 COVID-19 PFIZER VACCINE 2021-01-19 00:00:00 Completed [facility] SARS-COV-2 COVID-19 PFIZER VACCINE 2021-01-19 00:00:00 Completed [facility] SARS-COV-2 COVID-19 PFIZER VACCINE 2021-01-19 00:00:00 Completed [facility] SARS-COV-2 COVID-19 PFIZER VACCINE 2021-01-19 00:00:00 Completed [facility] SARS-COV-2 COVID-19 PFIZER VACCINE 2021-01-19 00:00:00 Completed [facility] SARS-COV-2 COVID-19 PFIZER VACCINE 2021-01-19 00:00:00 Completed [facility] SARS-COV-2 COVID-19 PFIZER VACCINE 2021-01-19 00:00:00 Completed [facility] SARS-COV-2 COVID-19 PFIZER VACCINE 2021-01-19 00:00:00 Completed [facility] SARS-COV-2 COVID-19 PFIZER VACCINE 2021-01-19 00:00:00 Completed [facility] SARS-COV-2 COVID-19 PFIZER VACCINE 2021-01-19 00:00:00 Completed [facility] SARS-COV-2 COVID-19 PFIZER VACCINE 2021-01-19 00:00:00 Completed [facility] SARS-COV-2 COVID-19 PFIZER VACCINE 2021-01-19 00:00:00 Completed [facility] SARS-COV-2 COVID-19 PFIZER VACCINE 2021-01-19 00:00:00 Completed [facility] SARS-COV-2 COVID-19 PFIZER VACCINE 2021-01-19 00:00:00 Completed [facility] SARS-COV-2 COVID-19 PFIZER VACCINE 2021-01-19 00:00:00 Completed [facility] SARS-COV-2 COVID-19 PFIZER VACCINE 2021-01-19 00:00:00 Completed [facility] SARS-COV-2 COVID-19 PFIZER VACCINE 2021-01-19 00:00:00 Completed [facility] SARS-COV-2 COVID-19 PFIZER VACCINE 2021-01-19 00:00:00 Completed [facility] SARS-COV-2 COVID-19 PFIZER VACCINE 2021-01-19 00:00:00 Completed [facility] SARS-COV-2 COVID-19 PFIZER VACCINE 2021-01-19 00:00:00 Completed [facility] SARS-COV-2 COVID-19 PFIZER VACCINE 2021-01-19 00:00:00 Completed [facility] SARS-COV-2 COVID-19 PFIZER VACCINE 2021-01-19 00:00:00 Completed [facility] SARS-COV-2 COVID-19 PFIZER VACCINE 2021-01-19 00:00:00 Completed [facility] SARS-COV-2 COVID-19 PFIZER VACCINE 2021-01-19 00:00:00 Completed [facility] SARS-COV-2 COVID-19 PFIZER VACCINE 2021-01-19 00:00:00 Completed [facility] SARS-COV-2 COVID-19 PFIZER VACCINE 2021-01-19 00:00:00 Completed [facility] SARS-COV-2 COVID-19 PFIZER VACCINE 2021-01-19 00:00:00 Completed [facility] SARS-COV-2 COVID-19 PFIZER VACCINE 2021-01-19 00:00:00 Completed [facility] SARS-COV-2 COVID-19 PFIZER VACCINE 2021-01-19 00:00:00 Completed [facility] SARS-COV-2 COVID-19 PFIZER VACCINE 2021-01-19 00:00:00 Completed [facility] SARS-COV-2 COVID-19 PFIZER VACCINE 2021-01-19 00:00:00 Completed [facility] SARS-COV-2 COVID-19 PFIZER VACCINE 2021-01-19 00:00:00 Completed [facility] SARS-COV-2 COVID-19 PFIZER VACCINE 2021-01-19 00:00:00 Completed [facility] SARS-COV-2 COVID-19 PFIZER VACCINE 2021-01-19 00:00:00 Completed [facility] SARS-COV-2 COVID-19 PFIZER VACCINE 2021-01-19 00:00:00 Completed [facility] SARS-COV-2 COVID-19 PFIZER VACCINE 2021-01-19 00:00:00 Completed [facility] SARS-COV-2 COVID-19 PFIZER VACCINE 2021-01-19 00:00:00 Completed [facility] SARS-COV-2 COVID-19 PFIZER VACCINE 2021-01-19 00:00:00 Completed [facility] SARS-COV-2 COVID-19 PFIZER VACCINE 2021-01-19 00:00:00 Completed [facility] SARS-COV-2 COVID-19 PFIZER VACCINE 2021-01-19 00:00:00 Completed [facility] SARS-COV-2 COVID-19 PFIZER VACCINE 2021-01-19 00:00:00 Completed [facility] SARS-COV-2 COVID-19 PFIZER VACCINE 2021-01-19 00:00:00 Completed [facility] SARS-COV-2 COVID-19 PFIZER VACCINE 2021-01-19 00:00:00 Completed [facility] SARS-COV-2 COVID-19 PFIZER VACCINE 2021-01-19 00:00:00 Completed [facility] SARS-COV-2 COVID-19 PFIZER VACCINE 2021-01-19 00:00:00 Completed [facility] SARS-COV-2 COVID-19 PFIZER VACCINE 2021-01-19 00:00:00 Completed [facility] SARS-COV-2 COVID-19 PFIZER VACCINE 2021-01-19 00:00:00 Completed [facility] SARS-COV-2 COVID-19 PFIZER VACCINE 2021-01-19 00:00:00 Completed [facility] SARS-COV-2 COVID-19 PFIZER VACCINE 2021-01-19 00:00:00 Completed [facility] SARS-COV-2 COVID-19 PFIZER VACCINE 2021-01-19 00:00:00 Completed [facility] SARS-COV-2 COVID-19 PFIZER VACCINE 2021-01-19 00:00:00 Completed [facility] SARS-COV-2 COVID-19 PFIZER VACCINE 2021-01-19 00:00:00 Completed [facility] SARS-COV-2 COVID-19 PFIZER VACCINE 2021-01-19 00:00:00 Completed [facility] SARS-COV-2 COVID-19 PFIZER VACCINE 2021-01-19 00:00:00 Completed [facility] SARS-COV-2 COVID-19 PFIZER VACCINE 2021-01-19 00:00:00 Completed [facility] SARS-COV-2 COVID-19 PFIZER VACCINE 2021-01-19 00:00:00 Completed [facility] SARS-COV-2 COVID-19 PFIZER VACCINE 2021-01-19 00:00:00 Completed [facility] SARS-COV-2 COVID-19 PFIZER VACCINE 2021-01-19 00:00:00 Completed [facility] SARS-COV-2 COVID-19 PFIZER VACCINE 2021-01-19 00:00:00 Completed [facility] SARS-COV-2 COVID-19 PFIZER VACCINE 2021-01-19 00:00:00 Completed [facility] SARS-COV-2 COVID-19 PFIZER VACCINE 2021-01-19 00:00:00 Completed [facility] SARS-COV-2 COVID-19 PFIZER VACCINE 2021-01-19 00:00:00 Completed [facility] SARS-COV-2 COVID-19 PFIZER VACCINE 2021-01-19 00:00:00 Completed [facility] SARS-COV-2 COVID-19 PFIZER VACCINE 2021-01-19 00:00:00 Completed [facility] SARS-COV-2 COVID-19 PFIZER VACCINE 2021-01-19 00:00:00 Completed [facility] SARS-COV-2 COVID-19 PFIZER VACCINE 2021-01-19 00:00:00 Completed [facility] SARS-COV-2 COVID-19 PFIZER VACCINE 2021-01-19 00:00:00 Completed [facility] SARS-COV-2 COVID-19 PFIZER VACCINE 2021-01-19 00:00:00 Completed [facility] SARS-COV-2 COVID-19 PFIZER VACCINE 2021-01-19 00:00:00 Completed [facility] SARS-COV-2 COVID-19 PFIZER VACCINE 2021-01-19 00:00:00 Completed [facility] SARS-COV-2 COVID-19 PFIZER VACCINE 2021-01-19 00:00:00 Completed [facility] SARS-COV-2 COVID-19 PFIZER VACCINE 2021-01-19 00:00:00 Completed [facility] SARS-COV-2 COVID-19 PFIZER VACCINE 2021-01-19 00:00:00 Completed [facility] SARS-COV-2 COVID-19 PFIZER VACCINE 2021-01-19 00:00:00 Completed [facility] Influenza Virus Vaccine Quad .5 mL IM 6+ MO 2021-01-02 00:00:00 Completed [facility] Influenza Virus Vaccine Quad .5 mL IM 6+ MO 2021-01-02 00:00:00 Completed [facility] Influenza Virus Vaccine Quad .5 mL IM 6+ MO 2021-01-02 00:00:00 Completed [facility] Influenza Virus Vaccine Quad .5 mL IM 6+ MO 2021-01-02 00:00:00 Completed [facility] Influenza Virus Vaccine Quad .5 mL IM 6+ MO 2021-01-02 00:00:00 Completed [facility] Influenza Virus Vaccine Quad .5 mL IM 6+ MO 2021-01-02 00:00:00 Completed [facility] Influenza Virus Vaccine Quad .5 mL IM 6+ MO 2021-01-02 00:00:00 Completed [facility] Influenza Virus Vaccine Quad .5 mL IM 6+ MO 2021-01-02 00:00:00 Completed [facility] Influenza Virus Vaccine Quad .5 mL IM 6+ MO 2021-01-02 00:00:00 Completed [facility] Influenza Virus Vaccine Quad .5 mL IM 6+ MO 2021-01-02 00:00:00 Completed [facility] Influenza Virus Vaccine Quad .5 mL IM 6+ MO 2021-01-02 00:00:00 Completed [facility] Influenza Virus Vaccine Quad .5 mL IM 6+ MO 2021-01-02 00:00:00 Completed [facility] Influenza Virus Vaccine Quad .5 mL IM 6+ MO 2021-01-02 00:00:00 Completed [facility] Influenza Virus Vaccine Quad .5 mL IM 6+ MO 2021-01-02 00:00:00 Completed [facility] Influenza Virus Vaccine Quad .5 mL IM 6+ MO 2021-01-02 00:00:00 Completed [facility] Influenza Virus Vaccine Quad .5 mL IM 6+ MO 2021-01-02 00:00:00 Completed [facility] Influenza Virus Vaccine Quad .5 mL IM 6+ MO 2021-01-02 00:00:00 Completed [facility] Influenza Virus Vaccine Quad .5 mL IM 6+ MO 2021-01-02 00:00:00 Completed [facility] Influenza Virus Vaccine Quad .5 mL IM 6+ MO 2021-01-02 00:00:00 Completed [facility] Influenza Virus Vaccine Quad .5 mL IM 6+ MO 2021-01-02 00:00:00 Completed [facility] Influenza Virus Vaccine Quad .5 mL IM 6+ MO 2021-01-02 00:00:00 Completed [facility] Influenza Virus Vaccine Quad .5 mL IM 6+ MO 2021-01-02 00:00:00 Completed [facility] Influenza Virus Vaccine Quad .5 mL IM 6+ MO 2021-01-02 00:00:00 Completed [facility] Influenza Virus Vaccine Quad .5 mL IM 6+ MO 2021-01-02 00:00:00 Completed [facility] Influenza Virus Vaccine Quad .5 mL IM 6+ MO 2021-01-02 00:00:00 Completed [facility] Influenza Virus Vaccine Quad .5 mL IM 6+ MO 2021-01-02 00:00:00 Completed [facility] Influenza Virus Vaccine Quad .5 mL IM 6+ MO 2021-01-02 00:00:00 Completed [facility] Influenza Virus Vaccine Quad .5 mL IM 6+ MO 2021-01-02 00:00:00 Completed [facility] Influenza Virus Vaccine Quad .5 mL IM 6+ MO 2021-01-02 00:00:00 Completed [facility] Influenza Virus Vaccine Quad .5 mL IM 6+ MO 2021-01-02 00:00:00 Completed [facility] Influenza Virus Vaccine Quad .5 mL IM 6+ MO 2021-01-02 00:00:00 Completed [facility] Influenza Virus Vaccine Quad .5 mL IM 6+ MO 2021-01-02 00:00:00 Completed [facility] Influenza Virus Vaccine Quad .5 mL IM 6+ MO 2021-01-02 00:00:00 Completed [facility] Influenza Virus Vaccine Quad .5 mL IM 6+ MO 2021-01-02 00:00:00 Completed [facility] Influenza Virus Vaccine Quad .5 mL IM 6+ MO 2021-01-02 00:00:00 Completed [facility] Influenza Virus Vaccine Quad .5 mL IM 6+ MO 2021-01-02 00:00:00 Completed [facility] Influenza Virus Vaccine Quad .5 mL IM 6+ MO 2021-01-02 00:00:00 Completed [facility] Influenza Virus Vaccine Quad .5 mL IM 6+ MO 2021-01-02 00:00:00 Completed [facility] Influenza Virus Vaccine Quad .5 mL IM 6+ MO 2021-01-02 00:00:00 Completed [facility] Influenza Virus Vaccine Quad .5 mL IM 6+ MO 2021-01-02 00:00:00 Completed [facility] Influenza Virus Vaccine Quad .5 mL IM 6+ MO 2021-01-02 00:00:00 Completed [facility] Influenza Virus Vaccine Quad .5 mL IM 6+ MO 2021-01-02 00:00:00 Completed [facility] Influenza Virus Vaccine Quad .5 mL IM 6+ MO 2021-01-02 00:00:00 Completed [facility] Influenza Virus Vaccine Quad .5 mL IM 6+ MO 2021-01-02 00:00:00 Completed [facility] Influenza Virus Vaccine Quad .5 mL IM 6+ MO 2021-01-02 00:00:00 Completed [facility] Influenza Virus Vaccine Quad .5 mL IM 6+ MO 2021-01-02 00:00:00 Completed [facility] Influenza Virus Vaccine Quad .5 mL IM 6+ MO 2021-01-02 00:00:00 Completed [facility] Influenza Virus Vaccine Quad .5 mL IM 6+ MO 2021-01-02 00:00:00 Completed [facility] Influenza Virus Vaccine Quad .5 mL IM 6+ MO 2021-01-02 00:00:00 Completed [facility] Influenza Virus Vaccine Quad .5 mL IM 6+ MO 2021-01-02 00:00:00 Completed [facility] Influenza Virus Vaccine Quad .5 mL IM 6+ MO 2021-01-02 00:00:00 Completed [facility] Influenza Virus Vaccine Quad .5 mL IM 6+ MO 2021-01-02 00:00:00 Completed [facility] Influenza Virus Vaccine Quad .5 mL IM 6+ MO 2021-01-02 00:00:00 Completed [facility] Influenza Virus Vaccine Quad .5 mL IM 6+ MO 2021-01-02 00:00:00 Completed [facility] Influenza Virus Vaccine Quad .5 mL IM 6+ MO 2021-01-02 00:00:00 Completed [facility] Influenza Virus Vaccine Quad .5 mL IM 6+ MO 2021-01-02 00:00:00 Completed [facility] Influenza Virus Vaccine Quad .5 mL IM 6+ MO 2021-01-02 00:00:00 Completed [facility] Influenza Virus Vaccine Quad .5 mL IM 6+ MO 2021-01-02 00:00:00 Completed [facility] Influenza Virus Vaccine Quad .5 mL IM 6+ MO 2021-01-02 00:00:00 Completed [facility] Influenza Virus Vaccine Quad .5 mL IM 6+ MO 2021-01-02 00:00:00 Completed [facility] Influenza Virus Vaccine Quad .5 mL IM 6+ MO 2021-01-02 00:00:00 Completed [facility] Influenza Virus Vaccine Quad .5 mL IM 6+ MO 2021-01-02 00:00:00 Completed [facility] Influenza Virus Vaccine Quad .5 mL IM 6+ MO 2021-01-02 00:00:00 Completed [facility] Influenza Virus Vaccine Quad .5 mL IM 6+ MO 2021-01-02 00:00:00 Completed [facility] Influenza Virus Vaccine Quad .5 mL IM 6+ MO 2021-01-02 00:00:00 Completed [facility] Influenza Virus Vaccine Quad .5 mL IM 6+ MO 2021-01-02 00:00:00 Completed [facility] Influenza Virus Vaccine Quad .5 mL IM 6+ MO 2021-01-02 00:00:00 Completed [facility] Influenza Virus Vaccine Quad .5 mL IM 6+ MO 2021-01-02 00:00:00 Completed [facility] Influenza Virus Vaccine Quad .5 mL IM 6+ MO 2021-01-02 00:00:00 Completed [facility] Influenza Virus Vaccine Quad .5 mL IM 6+ MO 2021-01-02 00:00:00 Completed [facility] Influenza Virus Vaccine Quad .5 mL IM 6+ MO 2021-01-02 00:00:00 Completed [facility] Influenza Virus Vaccine Quad .5 mL IM 6+ MO 2021-01-02 00:00:00 Completed [facility] Influenza Virus Vaccine Quad .5 mL IM 6+ MO 2021-01-02 00:00:00 Completed [facility] Influenza Virus Vaccine Quad .5 mL IM 6+ MO 2021-01-02 00:00:00 Completed [facility] Influenza Virus Vaccine Quad .5 mL IM 6+ MO 2021-01-02 00:00:00 Completed [facility] Influenza Virus Vaccine Quad .5 mL IM 6+ MO 2021-01-02 00:00:00 Completed [facility] Influenza Virus Vaccine Quad .5 mL IM 6+ MO 2021-01-02 00:00:00 Completed [facility] Influenza Virus Vaccine Quad .5 mL IM 6+ MO 2021-01-02 00:00:00 Completed [facility] Influenza Virus Vaccine Quad .5 mL IM 6+ MO 2021-01-02 00:00:00 Completed [facility] Influenza Virus Vaccine Quad .5 mL IM 6+ MO 2021-01-02 00:00:00 Completed [facility] Influenza Virus Vaccine Quad .5 mL IM 6+ MO 2021-01-02 00:00:00 Completed [facility] Influenza Virus Vaccine Quad .5 mL IM 6+ MO 2021-01-02 00:00:00 Completed [facility] Influenza Virus Vaccine Quad .5 mL IM 6+ MO 2021-01-02 00:00:00 Completed [facility] Influenza Virus Vaccine Quad .5 mL IM 6+ MO 2021-01-02 00:00:00 Completed [facility] Influenza Virus Vaccine Quad .5 mL IM 6+ MO 2021-01-02 00:00:00 Completed [facility] Influenza Virus Vaccine Quad .5 mL IM 6+ MO 2021-01-02 00:00:00 Completed [facility] Influenza Virus Vaccine Quad .5 mL IM 6+ MO 2021-01-02 00:00:00 Completed [facility] Influenza Virus Vaccine Quad .5 mL IM 6+ MO 2021-01-02 00:00:00 Completed [facility] Influenza Virus Vaccine Quad .5 mL IM 6+ MO 2021-01-02 00:00:00 Completed [facility] Influenza Virus Vaccine Quad .5 mL IM 6+ MO 2021-01-02 00:00:00 Completed [facility] Influenza Virus Vaccine Quad .5 mL IM 6+ MO 2021-01-02 00:00:00 Completed [facility] Influenza Virus Vaccine Quad .5 mL IM 6+ MO 2021-01-02 00:00:00 Completed [facility] Influenza Virus Vaccine Quad .5 mL IM 6+ MO 2021-01-02 00:00:00 Completed [facility] Influenza Virus Vaccine Quad .5 mL IM 6+ MO 2021-01-02 00:00:00 Completed [facility] Influenza Virus Vaccine Quad .5 mL IM 6+ MO 2021-01-02 00:00:00 Completed [facility] Influenza Virus Vaccine Quad .5 mL IM 6+ MO 2021-01-02 00:00:00 Completed [facility] Influenza Virus Vaccine Quad .5 mL IM 6+ MO 2021-01-02 00:00:00 Completed [facility] Influenza Virus Vaccine Quad .5 mL IM 6+ MO 2021-01-02 00:00:00 Completed [facility] Influenza Virus Vaccine Quad .5 mL IM 6+ MO 2021-01-02 00:00:00 Completed [facility] Influenza Virus Vaccine Quad .5 mL IM 6+ MO 2021-01-02 00:00:00 Completed [facility] Influenza Virus Vaccine Quad .5 mL IM 6+ MO 2021-01-02 00:00:00 Completed [facility] Influenza Virus Vaccine Quad .5 mL IM 6+ MO 2021-01-02 00:00:00 Completed [facility] Influenza Virus Vaccine Quad .5 mL IM 6+ MO 2021-01-02 00:00:00 Completed [facility] Influenza Virus Vaccine Quad .5 mL IM 6+ MO 2021-01-02 00:00:00 Completed [facility] Influenza Virus Vaccine Quad .5 mL IM 6+ MO 2021-01-02 00:00:00 Completed [facility] Influenza Virus Vaccine Quad .5 mL IM 6+ MO (FLUZONE/FLULAVAL/F LUARIX) 2021-01-02 00:00:00 Completed [facility] Influenza Virus Vaccine Quad .5 mL IM 6+ MO (FLUZONE/FLULAVAL/F LUARIX) 2021-01-02 00:00:00 Completed [facility] Influenza Virus Vaccine Quad .5 mL IM 6+ MO (FLUZONE/FLULAVAL/F LUARIX) 2021-01-02 00:00:00 Completed [facility] Pneumococcal 13 Conjugate, PCV13 (Prevnar 13) 2020-11-30 00:00:00 Completed [facility] Pneumococcal 13 Conjugate, PCV13 (Prevnar 13) 2020-11-30 00:00:00 Completed [facility] Pneumococcal 13 Conjugate, PCV13 (Prevnar 13) 2020-11-30 00:00:00 Completed [facility] Pneumococcal 13 Conjugate, PCV13 (Prevnar 13) 2020-11-30 00:00:00 Completed [facility] Pneumococcal 13 Conjugate, PCV13 (Prevnar 13) 2020-11-30 00:00:00 Completed [facility] Pneumococcal 13 Conjugate, PCV13 (Prevnar 13) 2020-11-30 00:00:00 Completed [facility] Pneumococcal 13 Conjugate, PCV13 (Prevnar 13) 2020-11-30 00:00:00 Completed [facility] Pneumococcal 13 Conjugate, PCV13 (Prevnar 13) 2020-11-30 00:00:00 Completed [facility] Pneumococcal 13 Conjugate, PCV13 (Prevnar 13) 2020-11-30 00:00:00 Completed [facility] Pneumococcal 13 Conjugate, PCV13 (Prevnar 13) 2020-11-30 00:00:00 Completed [facility] Pneumococcal 13 Conjugate, PCV13 (Prevnar 13) 2020-11-30 00:00:00 Completed [facility] Pneumococcal 13 Conjugate, PCV13 (Prevnar 13) 2020-11-30 00:00:00 Completed [facility] Pneumococcal 13 Conjugate, PCV13 (Prevnar 13) 2020-11-30 00:00:00 Completed [facility] Pneumococcal 13 Conjugate, PCV13 (Prevnar 13) 2020-11-30 00:00:00 Completed [facility] Pneumococcal 13 Conjugate, PCV13 (Prevnar 13) 2020-11-30 00:00:00 Completed [facility] Pneumococcal 13 Conjugate, PCV13 (Prevnar 13) 2020-11-30 00:00:00 Completed [facility] Pneumococcal 13 Conjugate, PCV13 (Prevnar 13) 2020-11-30 00:00:00 Completed [facility] Pneumococcal 13 Conjugate, PCV13 (Prevnar 13) 2020-11-30 00:00:00 Completed [facility] Pneumococcal 13 Conjugate, PCV13 (Prevnar 13) 2020-11-30 00:00:00 Completed [facility] Pneumococcal 13 Conjugate, PCV13 (Prevnar 13) 2020-11-30 00:00:00 Completed [facility] Pneumococcal 13 Conjugate, PCV13 (Prevnar 13) 2020-11-30 00:00:00 Completed [facility] Pneumococcal 13 Conjugate, PCV13 (Prevnar 13) 2020-11-30 00:00:00 Completed [facility] Pneumococcal 13 Conjugate, PCV13 (Prevnar 13) 2020-11-30 00:00:00 Completed [facility] Pneumococcal 13 Conjugate, PCV13 (Prevnar 13) 2020-11-30 00:00:00 Completed [facility] Pneumococcal 13 Conjugate, PCV13 (Prevnar 13) 2020-11-30 00:00:00 Completed [facility] Pneumococcal 13 Conjugate, PCV13 (Prevnar 13) 2020-11-30 00:00:00 Completed [facility] Pneumococcal 13 Conjugate, PCV13 (Prevnar 13) 2020-11-30 00:00:00 Completed [facility] Pneumococcal 13 Conjugate, PCV13 (Prevnar 13) 2020-11-30 00:00:00 Completed [facility] Pneumococcal 13 Conjugate, PCV13 (Prevnar 13) 2020-11-30 00:00:00 Completed [facility] Pneumococcal 13 Conjugate, PCV13 (Prevnar 13) 2020-11-30 00:00:00 Completed [facility] Pneumococcal 13 Conjugate, PCV13 (Prevnar 13) 2020-11-30 00:00:00 Completed [facility] Pneumococcal 13 Conjugate, PCV13 (Prevnar 13) 2020-11-30 00:00:00 Completed [facility] Pneumococcal 13 Conjugate, PCV13 (Prevnar 13) 2020-11-30 00:00:00 Completed [facility] Pneumococcal 13 Conjugate, PCV13 (Prevnar 13) 2020-11-30 00:00:00 Completed [facility] Pneumococcal 13 Conjugate, PCV13 (Prevnar 13) 2020-11-30 00:00:00 Completed [facility] Pneumococcal 13 Conjugate, PCV13 (Prevnar 13) 2020-11-30 00:00:00 Completed [facility] Pneumococcal 13 Conjugate, PCV13 (Prevnar 13) 2020-11-30 00:00:00 Completed [facility] Pneumococcal 13 Conjugate, PCV13 (Prevnar 13) 2020-11-30 00:00:00 Completed [facility] Pneumococcal 13 Conjugate, PCV13 (Prevnar 13) 2020-11-30 00:00:00 Completed [facility] Pneumococcal 13 Conjugate, PCV13 (Prevnar 13) 2020-11-30 00:00:00 Completed [facility] Pneumococcal 13 Conjugate, PCV13 (Prevnar 13) 2020-11-30 00:00:00 Completed [facility] Pneumococcal 13 Conjugate, PCV13 (Prevnar 13) 2020-11-30 00:00:00 Completed [facility] Pneumococcal 13 Conjugate, PCV13 (Prevnar 13) 2020-11-30 00:00:00 Completed [facility] Pneumococcal 13 Conjugate, PCV13 (Prevnar 13) 2020-11-30 00:00:00 Completed [facility] Pneumococcal 13 Conjugate, PCV13 (Prevnar 13) 2020-11-30 00:00:00 Completed [facility] Pneumococcal 13 Conjugate, PCV13 (Prevnar 13) 2020-11-30 00:00:00 Completed [facility] Pneumococcal 13 Conjugate, PCV13 (Prevnar 13) 2020-11-30 00:00:00 Completed [facility] Pneumococcal 13 Conjugate, PCV13 (Prevnar 13) 2020-11-30 00:00:00 Completed [facility] Pneumococcal 13 Conjugate, PCV13 (Prevnar 13) 2020-11-30 00:00:00 Completed [facility] Pneumococcal 13 Conjugate, PCV13 (Prevnar 13) 2020-11-30 00:00:00 Completed [facility] Pneumococcal 13 Conjugate, PCV13 (Prevnar 13) 2020-11-30 00:00:00 Completed [facility] Pneumococcal 13 Conjugate, PCV13 (Prevnar 13) 2020-11-30 00:00:00 Completed [facility] Pneumococcal 13 Conjugate, PCV13 (Prevnar 13) 2020-11-30 00:00:00 Completed [facility] Pneumococcal 13 Conjugate, PCV13 (Prevnar 13) 2020-11-30 00:00:00 Completed [facility] Pneumococcal 13 Conjugate, PCV13 (Prevnar 13) 2020-11-30 00:00:00 Completed [facility] Pneumococcal 13 Conjugate, PCV13 (Prevnar 13) 2020-11-30 00:00:00 Completed [facility] Pneumococcal 13 Conjugate, PCV13 (Prevnar 13) 2020-11-30 00:00:00 Completed [facility] Pneumococcal 13 Conjugate, PCV13 (Prevnar 13) 2020-11-30 00:00:00 Completed [facility] Pneumococcal 13 Conjugate, PCV13 (Prevnar 13) 2020-11-30 00:00:00 Completed [facility] Pneumococcal 13 Conjugate, PCV13 (Prevnar 13) 2020-11-30 00:00:00 Completed [facility] Pneumococcal 13 Conjugate, PCV13 (Prevnar 13) 2020-11-30 00:00:00 Completed [facility] Pneumococcal 13 Conjugate, PCV13 (Prevnar 13) 2020-11-30 00:00:00 Completed [facility] Pneumococcal 13 Conjugate, PCV13 (Prevnar 13) 2020-11-30 00:00:00 Completed [facility] Pneumococcal 13 Conjugate, PCV13 (Prevnar 13) 2020-11-30 00:00:00 Completed [facility] Pneumococcal 13 Conjugate, PCV13 (Prevnar 13) 2020-11-30 00:00:00 Completed [facility] Pneumococcal 13 Conjugate, PCV13 (Prevnar 13) 2020-11-30 00:00:00 Completed [facility] Pneumococcal 13 Conjugate, PCV13 (Prevnar 13) 2020-11-30 00:00:00 Completed [facility] Pneumococcal 13 Conjugate, PCV13 (Prevnar 13) 2020-11-30 00:00:00 Completed [facility] Pneumococcal 13 Conjugate, PCV13 (Prevnar 13) 2020-11-30 00:00:00 Completed [facility] Pneumococcal 13 Conjugate, PCV13 (Prevnar 13) 2020-11-30 00:00:00 Completed [facility] Pneumococcal 13 Conjugate, PCV13 (Prevnar 13) 2020-11-30 00:00:00 Completed [facility] Pneumococcal 13 Conjugate, PCV13 (Prevnar 13) 2020-11-30 00:00:00 Completed [facility] Pneumococcal 13 Conjugate, PCV13 (Prevnar 13) 2020-11-30 00:00:00 Completed [facility] Pneumococcal 13 Conjugate, PCV13 (Prevnar 13) 2020-11-30 00:00:00 Completed [facility] Pneumococcal 13 Conjugate, PCV13 (Prevnar 13) 2020-11-30 00:00:00 Completed [facility] Pneumococcal 13 Conjugate, PCV13 (Prevnar 13) 2020-11-30 00:00:00 Completed [facility] Pneumococcal 13 Conjugate, PCV13 (Prevnar 13) 2020-11-30 00:00:00 Completed [facility] Pneumococcal 13 Conjugate, PCV13 (Prevnar 13) 2020-11-30 00:00:00 Completed [facility] Pneumococcal 13 Conjugate, PCV13 (Prevnar 13) 2020-11-30 00:00:00 Completed [facility] Pneumococcal 13 Conjugate, PCV13 (Prevnar 13) 2020-11-30 00:00:00 Completed [facility] Pneumococcal 13 Conjugate, PCV13 (Prevnar 13) 2020-11-30 00:00:00 Completed [facility] Pneumococcal 13 Conjugate, PCV13 (Prevnar 13) 2020-11-30 00:00:00 Completed [facility] Pneumococcal 13 Conjugate, PCV13 (Prevnar 13) 2020-11-30 00:00:00 Completed [facility] Pneumococcal 13 Conjugate, PCV13 (Prevnar 13) 2020-11-30 00:00:00 Completed [facility] Pneumococcal 13 Conjugate, PCV13 (Prevnar 13) 2020-11-30 00:00:00 Completed [facility] Pneumococcal 13 Conjugate, PCV13 (Prevnar 13) 2020-11-30 00:00:00 Completed [facility] Pneumococcal 13 Conjugate, PCV13 (Prevnar 13) 2020-11-30 00:00:00 Completed [facility] Pneumococcal 13 Conjugate, PCV13 (Prevnar 13) 2020-11-30 00:00:00 Completed [facility] Pneumococcal 13 Conjugate, PCV13 (Prevnar 13) 2020-11-30 00:00:00 Completed [facility] Pneumococcal 13 Conjugate, PCV13 (Prevnar 13) 2020-11-30 00:00:00 Completed [facility] Pneumococcal 13 Conjugate, PCV13 (Prevnar 13) 2020-11-30 00:00:00 Completed [facility] Pneumococcal 13 Conjugate, PCV13 (Prevnar 13) 2020-11-30 00:00:00 Completed [facility] Pneumococcal 13 Conjugate, PCV13 (Prevnar 13) 2020-11-30 00:00:00 Completed [facility] Pneumococcal 13 Conjugate, PCV13 (Prevnar 13) 2020-11-30 00:00:00 Completed [facility] Pneumococcal 13 Conjugate, PCV13 (Prevnar 13) 2020-11-30 00:00:00 Completed [facility] Pneumococcal 13 Conjugate, PCV13 (Prevnar 13) 2020-11-30 00:00:00 Completed [facility] Pneumococcal 13 Conjugate, PCV13 (Prevnar 13) 2020-11-30 00:00:00 Completed [facility] Pneumococcal 13 Conjugate, PCV13 (Prevnar 13) 2020-11-30 00:00:00 Completed [facility] Pneumococcal 13 Conjugate, PCV13 (Prevnar 13) 2020-11-30 00:00:00 Completed [facility] Pneumococcal 13 Conjugate, PCV13 (Prevnar 13) 2020-11-30 00:00:00 Completed [facility] Pneumococcal 13 Conjugate, PCV13 (Prevnar 13) 2020-11-30 00:00:00 Completed [facility] Pneumococcal 13 Conjugate, PCV13 (Prevnar 13) 2020-11-30 00:00:00 Completed [facility] Pneumococcal 13 Conjugate, PCV13 (Prevnar 13) 2020-11-30 00:00:00 Completed [facility] Pneumococcal 13 Conjugate, PCV13 (Prevnar 13) 2020-11-30 00:00:00 Completed [facility] Pneumococcal 13 Conjugate, PCV13 (Prevnar 13) 2020-11-30 00:00:00 Completed [facility] Pneumococcal 13 Conjugate, PCV13 (Prevnar 13) 2020-11-30 00:00:00 Completed [facility] Pneumococcal 13 Conjugate, PCV13 (Prevnar 13) 2020-11-30 00:00:00 Completed [facility] Pneumococcal 13 Conjugate, PCV13 (Prevnar 13) 2020-11-30 00:00:00 Completed [facility] Influenza Virus Vaccine Quad .5 mL IM 6+ MO 2019-10-14 00:00:00 Completed [facility] Influenza Virus Vaccine Quad .5 mL IM 6+ MO 2019-10-14 00:00:00 Completed [facility] Influenza Virus Vaccine Quad .5 mL IM 6+ MO 2019-10-14 00:00:00 Completed [facility] Influenza Virus Vaccine Quad .5 mL IM 6+ MO 2019-10-14 00:00:00 Completed [facility] Influenza Virus Vaccine Quad .5 mL IM 6+ MO 2019-10-14 00:00:00 Completed [facility] Influenza Virus Vaccine Quad .5 mL IM 6+ MO 2019-10-14 00:00:00 Completed [facility] Influenza Virus Vaccine Quad .5 mL IM 6+ MO 2019-10-14 00:00:00 Completed [facility] Influenza Virus Vaccine Quad .5 mL IM 6+ MO 2019-10-14 00:00:00 Completed [facility] Influenza Virus Vaccine Quad .5 mL IM 6+ MO 2019-10-14 00:00:00 Completed [facility] Influenza Virus Vaccine Quad .5 mL IM 6+ MO 2019-10-14 00:00:00 Completed [facility] Influenza Virus Vaccine Quad .5 mL IM 6+ MO 2019-10-14 00:00:00 Completed [facility] Influenza Virus Vaccine Quad .5 mL IM 6+ MO 2019-10-14 00:00:00 Completed [facility] Influenza Virus Vaccine Quad .5 mL IM 6+ MO 2019-10-14 00:00:00 Completed [facility] Influenza Virus Vaccine Quad .5 mL IM 6+ MO 2019-10-14 00:00:00 Completed [facility] Influenza Virus Vaccine Quad .5 mL IM 6+ MO 2019-10-14 00:00:00 Completed [facility] Influenza Virus Vaccine Quad .5 mL IM 6+ MO 2019-10-14 00:00:00 Completed [facility] Influenza Virus Vaccine Quad .5 mL IM 6+ MO 2019-10-14 00:00:00 Completed [facility] Influenza Virus Vaccine Quad .5 mL IM 6+ MO 2019-10-14 00:00:00 Completed [facility] Influenza Virus Vaccine Quad .5 mL IM 6+ MO 2019-10-14 00:00:00 Completed [facility] Influenza Virus Vaccine Quad .5 mL IM 6+ MO 2019-10-14 00:00:00 Completed [facility] Influenza Virus Vaccine Quad .5 mL IM 6+ MO 2019-10-14 00:00:00 Completed [facility] Influenza Virus Vaccine Quad .5 mL IM 6+ MO 2019-10-14 00:00:00 Completed [facility] Influenza Virus Vaccine Quad .5 mL IM 6+ MO 2019-10-14 00:00:00 Completed [facility] Influenza Virus Vaccine Quad .5 mL IM 6+ MO 2019-10-14 00:00:00 Completed [facility] Influenza Virus Vaccine Quad .5 mL IM 6+ MO 2019-10-14 00:00:00 Completed [facility] Influenza Virus Vaccine Quad .5 mL IM 6+ MO 2019-10-14 00:00:00 Completed [facility] Influenza Virus Vaccine Quad .5 mL IM 6+ MO 2019-10-14 00:00:00 Completed [facility] Influenza Virus Vaccine Quad .5 mL IM 6+ MO 2019-10-14 00:00:00 Completed [facility] Influenza Virus Vaccine Quad .5 mL IM 6+ MO 2019-10-14 00:00:00 Completed [facility] Influenza Virus Vaccine Quad .5 mL IM 6+ MO 2019-10-14 00:00:00 Completed [facility] Influenza Virus Vaccine Quad .5 mL IM 6+ MO 2019-10-14 00:00:00 Completed [facility] Influenza Virus Vaccine Quad .5 mL IM 6+ MO 2019-10-14 00:00:00 Completed [facility] [facility] Influenza Virus Vaccine Quad .5 mL IM 6+ MO 2019-10-14 00:00:00 Completed [facility] Influenza Virus Vaccine Quad .5 mL IM 6+ MO 2019-10-14 00:00:00 Completed [facility] Influenza Virus Vaccine Quad .5 mL IM 6+ MO 2019-10-14 00:00:00 Completed [facility] Influenza Virus Vaccine Quad .5 mL IM 6+ MO 2019-10-14 00:00:00 Completed [facility] Influenza Virus Vaccine Quad .5 mL IM 6+ MO 2019-10-14 00:00:00 Completed [facility] Influenza Virus Vaccine Quad .5 mL IM 6+ MO 2019-10-14 00:00:00 Completed [facility] Influenza Virus Vaccine Quad .5 mL IM 6+ MO 2019-10-14 00:00:00 Completed [facility] Influenza Virus Vaccine Quad .5 mL IM 6+ MO 2019-10-14 00:00:00 Completed [facility] Influenza Virus Vaccine Quad .5 mL IM 6+ MO 2019-10-14 00:00:00 Completed [facility] Influenza Virus Vaccine Quad .5 mL IM 6+ MO 2019-10-14 00:00:00 Completed [facility] Influenza Virus Vaccine Quad .5 mL IM 6+ MO 2019-10-14 00:00:00 Completed [facility] Influenza Virus Vaccine Quad .5 mL IM 6+ MO 2019-10-14 00:00:00 Completed [facility] Influenza Virus Vaccine Quad .5 mL IM 6+ MO 2019-10-14 00:00:00 Completed [facility] Influenza Virus Vaccine Quad .5 mL IM 6+ MO 2019-10-14 00:00:00 Completed [facility] Influenza Virus Vaccine Quad .5 mL IM 6+ MO 2019-10-14 00:00:00 Completed [facility] Influenza Virus Vaccine Quad .5 mL IM 6+ MO 2019-10-14 00:00:00 Completed [facility] Influenza Virus Vaccine Quad .5 mL IM 6+ MO 2019-10-14 00:00:00 Completed [facility] Influenza Virus Vaccine Quad .5 mL IM 6+ MO 2019-10-14 00:00:00 Completed [facility] Influenza Virus Vaccine Quad .5 mL IM 6+ MO 2019-10-14 00:00:00 Completed [facility] Influenza Virus Vaccine Quad .5 mL IM 6+ MO 2019-10-14 00:00:00 Completed [facility] Influenza Virus Vaccine Quad .5 mL IM 6+ MO 2019-10-14 00:00:00 Completed [facility] Influenza Virus Vaccine Quad .5 mL IM 6+ MO 2019-10-14 00:00:00 Completed [facility] Influenza Virus Vaccine Quad .5 mL IM 6+ MO 2019-10-14 00:00:00 Completed [facility] Influenza Virus Vaccine Quad .5 mL IM 6+ MO 2019-10-14 00:00:00 Completed [facility] Influenza Virus Vaccine Quad .5 mL IM 6+ MO 2019-10-14 00:00:00 Completed [facility] Influenza Virus Vaccine Quad .5 mL IM 6+ MO 2019-10-14 00:00:00 Completed [facility] Influenza Virus Vaccine Quad .5 mL IM 6+ MO 2019-10-14 00:00:00 Completed [facility] Influenza Virus Vaccine Quad .5 mL IM 6+ MO 2019-10-14 00:00:00 Completed [facility] Influenza Virus Vaccine Quad .5 mL IM 6+ MO 2019-10-14 00:00:00 Completed [facility] Influenza Virus Vaccine Quad .5 mL IM 6+ MO 2019-10-14 00:00:00 Completed [facility] Influenza Virus Vaccine Quad .5 mL IM 6+ MO 2019-10-14 00:00:00 Completed [facility] Influenza Virus Vaccine Quad .5 mL IM 6+ MO 2019-10-14 00:00:00 Completed [facility] Influenza Virus Vaccine Quad .5 mL IM 6+ MO 2019-10-14 00:00:00 Completed [facility] Influenza Virus Vaccine Quad .5 mL IM 6+ MO 2019-10-14 00:00:00 Completed [facility] Influenza Virus Vaccine Quad .5 mL IM 6+ MO 2019-10-14 00:00:00 Completed [facility] Influenza Virus Vaccine Quad .5 mL IM 6+ MO 2019-10-14 00:00:00 Completed [facility] Influenza Virus Vaccine Quad .5 mL IM 6+ MO 2019-10-14 00:00:00 Completed [facility] Influenza Virus Vaccine Quad .5 mL IM 6+ MO 2019-10-14 00:00:00 Completed [facility] Influenza Virus Vaccine Quad .5 mL IM 6+ MO 2019-10-14 00:00:00 Completed [facility] Influenza Virus Vaccine Quad .5 mL IM 6+ MO 2019-10-14 00:00:00 Completed [facility] Influenza Virus Vaccine Quad .5 mL IM 6+ MO 2019-10-14 00:00:00 Completed [facility] Influenza Virus Vaccine Quad .5 mL IM 6+ MO 2019-10-14 00:00:00 Completed [facility] Influenza Virus Vaccine Quad .5 mL IM 6+ MO 2019-10-14 00:00:00 Completed [facility] Influenza Virus Vaccine Quad .5 mL IM 6+ MO 2019-10-14 00:00:00 Completed [facility] Influenza Virus Vaccine Quad .5 mL IM 6+ MO 2019-10-14 00:00:00 Completed [facility] Influenza Virus Vaccine Quad .5 mL IM 6+ MO 2019-10-14 00:00:00 Completed [facility] Influenza Virus Vaccine Quad .5 mL IM 6+ MO 2019-10-14 00:00:00 Completed [facility] Influenza Virus Vaccine Quad .5 mL IM 6+ MO 2019-10-14 00:00:00 Completed [facility] Influenza Virus Vaccine Quad .5 mL IM 6+ MO 2019-10-14 00:00:00 Completed [facility] Influenza Virus Vaccine Quad .5 mL IM 6+ MO 2019-10-14 00:00:00 Completed [facility] Influenza Virus Vaccine Quad .5 mL IM 6+ MO 2019-10-14 00:00:00 Completed [facility] Influenza Virus Vaccine Quad .5 mL IM 6+ MO 2019-10-14 00:00:00 Completed [facility] Influenza Virus Vaccine Quad .5 mL IM 6+ MO 2019-10-14 00:00:00 Completed [facility] Influenza Virus Vaccine Quad .5 mL IM 6+ MO 2019-10-14 00:00:00 Completed [facility] Influenza Virus Vaccine Quad .5 mL IM 6+ MO 2019-10-14 00:00:00 Completed [facility] Influenza Virus Vaccine Quad .5 mL IM 6+ MO 2019-10-14 00:00:00 Completed [facility] Influenza Virus Vaccine Quad .5 mL IM 6+ MO 2019-10-14 00:00:00 Completed [facility] Influenza Virus Vaccine Quad .5 mL IM 6+ MO 2019-10-14 00:00:00 Completed [facility] Influenza Virus Vaccine Quad .5 mL IM 6+ MO 2019-10-14 00:00:00 Completed [facility] Influenza Virus Vaccine Quad .5 mL IM 6+ MO 2019-10-14 00:00:00 Completed [facility] Influenza Virus Vaccine Quad .5 mL IM 6+ MO 2019-10-14 00:00:00 Completed [facility] Influenza Virus Vaccine Quad .5 mL IM 6+ MO 2019-10-14 00:00:00 Completed [facility] Influenza Virus Vaccine Quad .5 mL IM 6+ MO 2019-10-14 00:00:00 Completed [facility] Influenza Virus Vaccine Quad .5 mL IM 6+ MO 2019-10-14 00:00:00 Completed [facility] Influenza Virus Vaccine Quad .5 mL IM 6+ MO 2019-10-14 00:00:00 Completed [facility] Influenza Virus Vaccine Quad .5 mL IM 6+ MO 2019-10-14 00:00:00 Completed [facility] Influenza Virus Vaccine Quad .5 mL IM 6+ MO 2019-10-14 00:00:00 Completed [facility] Influenza Virus Vaccine Quad .5 mL IM 6+ MO 2019-10-14 00:00:00 Completed [facility] Influenza Virus Vaccine Quad .5 mL IM 6+ MO 2019-10-14 00:00:00 Completed [facility] Influenza Virus Vaccine Quad .5 mL IM 6+ MO 2019-10-14 00:00:00 Completed [facility] Influenza Virus Vaccine Quad .5 mL IM 6+ MO 2019-10-14 00:00:00 Completed [facility] Influenza Virus Vaccine Quad .5 mL IM 6+ MO 2019-10-14 00:00:00 Completed [facility] Influenza Virus Vaccine Quad .5 mL IM 6+ MO 2019-10-14 00:00:00 Completed [facility] Influenza Virus Vaccine Quad .5 mL IM 6+ MO (FLUZONE/FLULAVAL/F LUARIX) 2019-10-14 00:00:00 Completed [facility] Influenza Virus Vaccine Quad .5 mL IM 6+ MO (FLUZONE/FLULAVAL/F LUARIX) 2019-10-14 00:00:00 Completed [facility] Influenza Virus Vaccine Quad .5 mL IM 6+ MO (FLUZONE/FLULAVAL/F LUARIX) 2019-10-14 00:00:00 Completed [facility] Influenza Virus Vaccine Quad .5 mL IM 6+ MO 2018-09-21 00:00:00 Completed [facility] Influenza Virus Vaccine Quad .5 mL IM 6+ MO 2018-09-21 00:00:00 Completed [facility] Influenza Virus Vaccine Quad .5 mL IM 6+ MO 2018-09-21 00:00:00 Completed [facility] Influenza Virus Vaccine Quad .5 mL IM 6+ MO 2018-09-21 00:00:00 Completed [facility] Influenza Virus Vaccine Quad .5 mL IM 6+ MO 2018-09-21 00:00:00 Completed [facility] Influenza Virus Vaccine Quad .5 mL IM 6+ MO 2018-09-21 00:00:00 Completed [facility] Influenza Virus Vaccine Quad .5 mL IM 6+ MO 2018-09-21 00:00:00 Completed [facility] Influenza Virus Vaccine Quad .5 mL IM 6+ MO 2018-09-21 00:00:00 Completed [facility] Influenza Virus Vaccine Quad .5 mL IM 6+ MO 2018-09-21 00:00:00 Completed [facility] Influenza Virus Vaccine Quad .5 mL IM 6+ MO 2018-09-21 00:00:00 Completed [facility] Influenza Virus Vaccine Quad .5 mL IM 6+ MO 2018-09-21 00:00:00 Completed [facility] Influenza Virus Vaccine Quad .5 mL IM 6+ MO 2018-09-21 00:00:00 Completed [facility] Influenza Virus Vaccine Quad .5 mL IM 6+ MO 2018-09-21 00:00:00 Completed [facility] Influenza Virus Vaccine Quad .5 mL IM 6+ MO 2018-09-21 00:00:00 Completed [facility] Influenza Virus Vaccine Quad .5 mL IM 6+ MO 2018-09-21 00:00:00 Completed [facility] Influenza Virus Vaccine Quad .5 mL IM 6+ MO 2018-09-21 00:00:00 Completed [facility] Influenza Virus Vaccine Quad .5 mL IM 6+ MO 2018-09-21 00:00:00 Completed [facility] Influenza Virus Vaccine Quad .5 mL IM 6+ MO 2018-09-21 00:00:00 Completed [facility] Influenza Virus Vaccine Quad .5 mL IM 6+ MO 2018-09-21 00:00:00 Completed [facility] Influenza Virus Vaccine Quad .5 mL IM 6+ MO 2018-09-21 00:00:00 Completed [facility] Influenza Virus Vaccine Quad .5 mL IM 6+ MO 2018-09-21 00:00:00 Completed [facility] Influenza Virus Vaccine Quad .5 mL IM 6+ MO 2018-09-21 00:00:00 Completed [facility] Influenza Virus Vaccine Quad .5 mL IM 6+ MO 2018-09-21 00:00:00 Completed [facility] Influenza Virus Vaccine Quad .5 mL IM 6+ MO 2018-09-21 00:00:00 Completed [facility] Influenza Virus Vaccine Quad .5 mL IM 6+ MO 2018-09-21 00:00:00 Completed [facility] Influenza Virus Vaccine Quad .5 mL IM 6+ MO 2018-09-21 00:00:00 Completed [facility] Influenza Virus Vaccine Quad .5 mL IM 6+ MO 2018-09-21 00:00:00 Completed [facility] Influenza Virus Vaccine Quad .5 mL IM 6+ MO 2018-09-21 00:00:00 Completed [facility] Influenza Virus Vaccine Quad .5 mL IM 6+ MO 2018-09-21 00:00:00 Completed [facility] Influenza Virus Vaccine Quad .5 mL IM 6+ MO 2018-09-21 00:00:00 Completed [facility] Influenza Virus Vaccine Quad .5 mL IM 6+ MO 2018-09-21 00:00:00 Completed [facility] Influenza Virus Vaccine Quad .5 mL IM 6+ MO 2018-09-21 00:00:00 Completed [facility] Influenza Virus Vaccine Quad .5 mL IM 6+ MO 2018-09-21 00:00:00 Completed [facility] Influenza Virus Vaccine Quad .5 mL IM 6+ MO 2018-09-21 00:00:00 Completed [facility] Influenza Virus Vaccine Quad .5 mL IM 6+ MO 2018-09-21 00:00:00 Completed [facility] Influenza Virus Vaccine Quad .5 mL IM 6+ MO 2018-09-21 00:00:00 Completed [facility] Influenza Virus Vaccine Quad .5 mL IM 6+ MO 2018-09-21 00:00:00 Completed [facility] Influenza Virus Vaccine Quad .5 mL IM 6+ MO 2018-09-21 00:00:00 Completed [facility] Influenza Virus Vaccine Quad .5 mL IM 6+ MO 2018-09-21 00:00:00 Completed [facility] Influenza Virus Vaccine Quad .5 mL IM 6+ MO 2018-09-21 00:00:00 Completed [facility] Influenza Virus Vaccine Quad .5 mL IM 6+ MO 2018-09-21 00:00:00 Completed [facility] Influenza Virus Vaccine Quad .5 mL IM 6+ MO 2018-09-21 00:00:00 Completed [facility] Influenza Virus Vaccine Quad .5 mL IM 6+ MO 2018-09-21 00:00:00 Completed [facility] Influenza Virus Vaccine Quad .5 mL IM 6+ MO 2018-09-21 00:00:00 Completed [facility] Influenza Virus Vaccine Quad .5 mL IM 6+ MO 2018-09-21 00:00:00 Completed [facility] Influenza Virus Vaccine Quad .5 mL IM 6+ MO 2018-09-21 00:00:00 Completed [facility] Influenza Virus Vaccine Quad .5 mL IM 6+ MO 2018-09-21 00:00:00 Completed [facility] Influenza Virus Vaccine Quad .5 mL IM 6+ MO 2018-09-21 00:00:00 Completed [facility] Influenza Virus Vaccine Quad .5 mL IM 6+ MO 2018-09-21 00:00:00 Completed [facility] Influenza Virus Vaccine Quad .5 mL IM 6+ MO 2018-09-21 00:00:00 Completed [facility] Influenza Virus Vaccine Quad .5 mL IM 6+ MO 2018-09-21 00:00:00 Completed [facility] Influenza Virus Vaccine Quad .5 mL IM 6+ MO 2018-09-21 00:00:00 Completed [facility] Influenza Virus Vaccine Quad .5 mL IM 6+ MO 2018-09-21 00:00:00 Completed [facility] Influenza Virus Vaccine Quad .5 mL IM 6+ MO 2018-09-21 00:00:00 Completed [facility] Influenza Virus Vaccine Quad .5 mL IM 6+ MO 2018-09-21 00:00:00 Completed [facility] Influenza Virus Vaccine Quad .5 mL IM 6+ MO 2018-09-21 00:00:00 Completed [facility] Influenza Virus Vaccine Quad .5 mL IM 6+ MO 2018-09-21 00:00:00 Completed [facility] Influenza Virus Vaccine Quad .5 mL IM 6+ MO 2018-09-21 00:00:00 Completed [facility] Influenza Virus Vaccine Quad .5 mL IM 6+ MO 2018-09-21 00:00:00 Completed [facility] Influenza Virus Vaccine Quad .5 mL IM 6+ MO 2018-09-21 00:00:00 Completed [facility] Influenza Virus Vaccine Quad .5 mL IM 6+ MO 2018-09-21 00:00:00 Completed [facility] Influenza Virus Vaccine Quad .5 mL IM 6+ MO 2018-09-21 00:00:00 Completed [facility] Influenza Virus Vaccine Quad .5 mL IM 6+ MO 2018-09-21 00:00:00 Completed [facility] Influenza Virus Vaccine Quad .5 mL IM 6+ MO 2018-09-21 00:00:00 Completed [facility] Influenza Virus Vaccine Quad .5 mL IM 6+ MO 2018-09-21 00:00:00 Completed [facility] Influenza Virus Vaccine Quad .5 mL IM 6+ MO 2018-09-21 00:00:00 Completed [facility] Influenza Virus Vaccine Quad .5 mL IM 6+ MO 2018-09-21 00:00:00 Completed [facility] Influenza Virus Vaccine Quad .5 mL IM 6+ MO 2018-09-21 00:00:00 Completed [facility] Influenza Virus Vaccine Quad .5 mL IM 6+ MO 2018-09-21 00:00:00 Completed [facility] Influenza Virus Vaccine Quad .5 mL IM 6+ MO 2018-09-21 00:00:00 Completed [facility] Influenza Virus Vaccine Quad .5 mL IM 6+ MO 2018-09-21 00:00:00 Completed [facility] Influenza Virus Vaccine Quad .5 mL IM 6+ MO 2018-09-21 00:00:00 Completed [facility] Influenza Virus Vaccine Quad .5 mL IM 6+ MO 2018-09-21 00:00:00 Completed [facility] Influenza Virus Vaccine Quad .5 mL IM 6+ MO 2018-09-21 00:00:00 Completed [facility] Influenza Virus Vaccine Quad .5 mL IM 6+ MO 2018-09-21 00:00:00 Completed [facility] Influenza Virus Vaccine Quad .5 mL IM 6+ MO 2018-09-21 00:00:00 Completed [facility] Influenza Virus Vaccine Quad .5 mL IM 6+ MO 2018-09-21 00:00:00 Completed [facility] Influenza Virus Vaccine Quad .5 mL IM 6+ MO 2018-09-21 00:00:00 Completed [facility] Influenza Virus Vaccine Quad .5 mL IM 6+ MO 2018-09-21 00:00:00 Completed [facility] Influenza Virus Vaccine Quad .5 mL IM 6+ MO 2018-09-21 00:00:00 Completed [facility] Influenza Virus Vaccine Quad .5 mL IM 6+ MO 2018-09-21 00:00:00 Completed [facility] Influenza Virus Vaccine Quad .5 mL IM 6+ MO 2018-09-21 00:00:00 Completed [facility] Influenza Virus Vaccine Quad .5 mL IM 6+ MO 2018-09-21 00:00:00 Completed [facility] Influenza Virus Vaccine Quad .5 mL IM 6+ MO 2018-09-21 00:00:00 Completed [facility] Influenza Virus Vaccine Quad .5 mL IM 6+ MO 2018-09-21 00:00:00 Completed [facility] Influenza Virus Vaccine Quad .5 mL IM 6+ MO 2018-09-21 00:00:00 Completed [facility] Influenza Virus Vaccine Quad .5 mL IM 6+ MO 2018-09-21 00:00:00 Completed [facility] Influenza Virus Vaccine Quad .5 mL IM 6+ MO 2018-09-21 00:00:00 Completed [facility] Influenza Virus Vaccine Quad .5 mL IM 6+ MO 2018-09-21 00:00:00 Completed [facility] Influenza Virus Vaccine Quad .5 mL IM 6+ MO 2018-09-21 00:00:00 Completed [facility] Influenza Virus Vaccine Quad .5 mL IM 6+ MO 2018-09-21 00:00:00 Completed [facility] Influenza Virus Vaccine Quad .5 mL IM 6+ MO 2018-09-21 00:00:00 Completed [facility] Influenza Virus Vaccine Quad .5 mL IM 6+ MO 2018-09-21 00:00:00 Completed [facility] Influenza Virus Vaccine Quad .5 mL IM 6+ MO 2018-09-21 00:00:00 Completed [facility] Influenza Virus Vaccine Quad .5 mL IM 6+ MO 2018-09-21 00:00:00 Completed [facility] Influenza Virus Vaccine Quad .5 mL IM 6+ MO 2018-09-21 00:00:00 Completed [facility] Influenza Virus Vaccine Quad .5 mL IM 6+ MO 2018-09-21 00:00:00 Completed [facility] Influenza Virus Vaccine Quad .5 mL IM 6+ MO 2018-09-21 00:00:00 Completed [facility] Influenza Virus Vaccine Quad .5 mL IM 6+ MO 2018-09-21 00:00:00 Completed [facility] Influenza Virus Vaccine Quad .5 mL IM 6+ MO 2018-09-21 00:00:00 Completed [facility] Influenza Virus Vaccine Quad .5 mL IM 6+ MO 2018-09-21 00:00:00 Completed [facility] Influenza Virus Vaccine Quad .5 mL IM 6+ MO 2018-09-21 00:00:00 Completed [facility] Influenza Virus Vaccine Quad .5 mL IM 6+ MO 2018-09-21 00:00:00 Completed [facility] Influenza Virus Vaccine Quad .5 mL IM 6+ MO 2018-09-21 00:00:00 Completed [facility] Influenza Virus Vaccine Quad .5 mL IM 6+ MO 2018-09-21 00:00:00 Completed [facility] Influenza Virus Vaccine Quad .5 mL IM 6+ MO (FLUZONE/FLULAVAL/F LUARIX) 2018-09-21 00:00:00 Completed [facility] Influenza Virus Vaccine Quad .5 mL IM 6+ MO (FLUZONE/FLULAVAL/F LUARIX) 2018-09-21 00:00:00 Completed [facility] Influenza Virus Vaccine Quad .5 mL IM 6+ MO (FLUZONE/FLULAVAL/F LUARIX) 2018-09-21 00:00:00 Completed [facility] Influenza Virus Vaccine Quad IM 3+ YRS 2017-09-10 00:00:00 Completed [facility] Influenza Virus Vaccine Quad IM 3+ YRS 2017-09-10 00:00:00 Completed [facility] Influenza Virus Vaccine Quad IM 3+ YRS 2017-09-10 00:00:00 Completed [facility] Influenza Virus Vaccine Quad IM 3+ YRS 2017-09-10 00:00:00 Completed [facility] Influenza Virus Vaccine Quad IM 3+ YRS 2017-09-10 00:00:00 Completed [facility] Influenza Virus Vaccine Quad IM 3+ YRS 2017-09-10 00:00:00 Completed [facility] Influenza Virus Vaccine Quad IM 3+ YRS 2017-09-10 00:00:00 Completed [facility] Influenza Virus Vaccine Quad IM 3+ YRS 2017-09-10 00:00:00 Completed [facility] Influenza Virus Vaccine Quad IM 3+ YRS 2017-09-10 00:00:00 Completed [facility] Influenza Virus Vaccine Quad IM 3+ YRS 2017-09-10 00:00:00 Completed [facility] Influenza Virus Vaccine Quad IM 3+ YRS 2017-09-10 00:00:00 Completed [facility] Influenza Virus Vaccine Quad IM 3+ YRS 2017-09-10 00:00:00 Completed [facility] Influenza Virus Vaccine Quad IM 3+ YRS 2017-09-10 00:00:00 Completed [facility] Influenza Virus Vaccine Quad IM 3+ YRS 2017-09-10 00:00:00 Completed [facility] Influenza Virus Vaccine Quad IM 3+ YRS 2017-09-10 00:00:00 Completed [facility] Influenza Virus Vaccine Quad IM 3+ YRS 2017-09-10 00:00:00 Completed [facility] Influenza Virus Vaccine Quad IM 3+ YRS 2017-09-10 00:00:00 Completed [facility] Influenza Virus Vaccine Quad IM 3+ YRS 2017-09-10 00:00:00 Completed [facility] Influenza Virus Vaccine Quad IM 3+ YRS 2017-09-10 00:00:00 Completed [facility] Influenza Virus Vaccine Quad IM 3+ YRS 2017-09-10 00:00:00 Completed [facility] Influenza Virus Vaccine Quad IM 3+ YRS 2017-09-10 00:00:00 Completed [facility] Influenza Virus Vaccine Quad IM 3+ YRS 2017-09-10 00:00:00 Completed [facility] Influenza Virus Vaccine Quad IM 3+ YRS 2017-09-10 00:00:00 Completed [facility] Influenza Virus Vaccine Quad IM 3+ YRS 2017-09-10 00:00:00 Completed [facility] Influenza Virus Vaccine Quad IM 3+ YRS 2017-09-10 00:00:00 Completed [facility] Influenza Virus Vaccine Quad IM 3+ YRS 2017-09-10 00:00:00 Completed [facility] Influenza Virus Vaccine Quad IM 3+ YRS 2017-09-10 00:00:00 Completed [facility] Influenza Virus Vaccine Quad IM 3+ YRS 2017-09-10 00:00:00 Completed [facility] Influenza Virus Vaccine Quad IM 3+ YRS 2017-09-10 00:00:00 Completed [facility] Influenza Virus Vaccine Quad IM 3+ YRS 2017-09-10 00:00:00 [facility] [facility] Influenza Virus Vaccine Quad IM 3+ YRS 2017-09-10 00:00:00 Completed [facility] Influenza Virus Vaccine Quad IM 3+ YRS 2017-09-10 00:00:00 Completed [facility] Influenza Virus Vaccine Quad IM 3+ YRS 2017-09-10 00:00:00 Completed [facility] Influenza Virus Vaccine Quad IM 3+ YRS 2017-09-10 00:00:00 Completed [facility] Influenza Virus Vaccine Quad IM 3+ YRS 2017-09-10 00:00:00 Completed [facility] Influenza Virus Vaccine Quad IM 3+ YRS 2017-09-10 00:00:00 Completed [facility] Influenza Virus Vaccine Quad IM 3+ YRS 2017-09-10 00:00:00 Completed [facility] Influenza Virus Vaccine Quad IM 3+ YRS 2017-09-10 00:00:00 Completed [facility] Influenza Virus Vaccine Quad IM 3+ YRS 2017-09-10 00:00:00 Completed [facility] Influenza Virus Vaccine Quad IM 3+ YRS 2017-09-10 00:00:00 Completed [facility] Influenza Virus Vaccine Quad IM 3+ YRS 2017-09-10 00:00:00 Completed [facility] Influenza Virus Vaccine Quad IM 3+ YRS 2017-09-10 00:00:00 Completed [facility] Influenza Virus Vaccine Quad IM 3+ YRS 2017-09-10 00:00:00 Completed [facility] Influenza Virus Vaccine Quad IM 3+ YRS 2017-09-10 00:00:00 Completed [facility] Influenza Virus Vaccine Quad IM 3+ YRS 2017-09-10 00:00:00 Completed [facility] Influenza Virus Vaccine Quad IM 3+ YRS 2017-09-10 00:00:00 Completed [facility] Influenza Virus Vaccine Quad IM 3+ YRS 2017-09-10 00:00:00 Completed [facility] Influenza Virus Vaccine Quad IM 3+ YRS 2017-09-10 00:00:00 Completed [facility] Influenza Virus Vaccine Quad IM 3+ YRS 2017-09-10 00:00:00 Completed [facility] Influenza Virus Vaccine Quad IM 3+ YRS 2017-09-10 00:00:00 Completed [facility] Influenza Virus Vaccine Quad IM 3+ YRS 2017-09-10 00:00:00 Completed [facility] Influenza Virus Vaccine Quad IM 3+ YRS 2017-09-10 00:00:00 Completed [facility] Influenza Virus Vaccine Quad IM 3+ YRS 2017-09-10 00:00:00 Completed [facility] Influenza Virus Vaccine Quad IM 3+ YRS 2017-09-10 00:00:00 Completed [facility] Influenza Virus Vaccine Quad IM 3+ YRS 2017-09-10 00:00:00 Completed [facility] Influenza Virus Vaccine Quad IM 3+ YRS 2017-09-10 00:00:00 Completed [facility] Influenza Virus Vaccine Quad IM 3+ YRS 2017-09-10 00:00:00 Completed [facility] Influenza Virus Vaccine Quad IM 3+ YRS 2017-09-10 00:00:00 Completed [facility] Influenza Virus Vaccine Quad IM 3+ YRS 2017-09-10 00:00:00 Completed [facility] Influenza Virus Vaccine Quad IM 3+ YRS 2017-09-10 00:00:00 Completed [facility] Influenza Virus Vaccine Quad IM 3+ YRS 2017-09-10 00:00:00 Completed [facility] Influenza Virus Vaccine Quad IM 3+ YRS 2017-09-10 00:00:00 Completed [facility] Influenza Virus Vaccine Quad IM 3+ YRS 2017-09-10 00:00:00 Completed [facility] Influenza Virus Vaccine Quad IM 3+ YRS 2017-09-10 00:00:00 Completed [facility] Influenza Virus Vaccine Quad IM 3+ YRS 2017-09-10 00:00:00 Completed [facility] Influenza Virus Vaccine Quad IM 3+ YRS 2017-09-10 00:00:00 Completed [facility] Influenza Virus Vaccine Quad IM 3+ YRS 2017-09-10 00:00:00 Completed [facility] Influenza Virus Vaccine Quad IM 3+ YRS 2017-09-10 00:00:00 Completed [facility] Influenza Virus Vaccine Quad IM 3+ YRS 2017-09-10 00:00:00 Completed [facility] Influenza Virus Vaccine Quad IM 3+ YRS 2017-09-10 00:00:00 Completed [facility] Influenza Virus Vaccine Quad IM 3+ YRS 2017-09-10 00:00:00 Completed [facility] Influenza Virus Vaccine Quad IM 3+ YRS 2017-09-10 00:00:00 Completed [facility] Influenza Virus Vaccine Quad IM 3+ YRS 2017-09-10 00:00:00 Completed [facility] Influenza Virus Vaccine Quad IM 3+ YRS 2017-09-10 00:00:00 Completed [facility] Influenza Virus Vaccine Quad IM 3+ YRS 2017-09-10 00:00:00 Completed [facility] Influenza Virus Vaccine Quad IM 3+ YRS 2017-09-10 00:00:00 Completed [facility] Influenza Virus Vaccine Quad IM 3+ YRS 2017-09-10 00:00:00 Completed [facility] Influenza Virus Vaccine Quad IM 3+ YRS 2017-09-10 00:00:00 Completed [facility] Influenza Virus Vaccine Quad IM 3+ YRS 2017-09-10 00:00:00 Completed [facility] Influenza Virus Vaccine Quad IM 3+ YRS 2017-09-10 00:00:00 Completed [facility] Influenza Virus Vaccine Quad IM 3+ YRS 2017-09-10 00:00:00 Completed [facility] Influenza Virus Vaccine Quad IM 3+ YRS 2017-09-10 00:00:00 Completed [facility] Influenza Virus Vaccine Quad IM 3+ YRS 2017-09-10 00:00:00 Completed [facility] Influenza Virus Vaccine Quad IM 3+ YRS 2017-09-10 00:00:00 Completed [facility] Influenza Virus Vaccine Quad IM 3+ YRS 2017-09-10 00:00:00 Completed [facility] Influenza Virus Vaccine Quad IM 3+ YRS 2017-09-10 00:00:00 Completed [facility] Influenza Virus Vaccine Quad IM 3+ YRS 2017-09-10 00:00:00 Completed [facility] Influenza Virus Vaccine Quad IM 3+ YRS 2017-09-10 00:00:00 Completed [facility] Influenza Virus Vaccine Quad IM 3+ YRS 2017-09-10 00:00:00 Completed [facility] Influenza Virus Vaccine Quad IM 3+ YRS 2017-09-10 00:00:00 Completed [facility] Influenza Virus Vaccine Quad IM 3+ YRS 2017-09-10 00:00:00 Completed [facility] Influenza Virus Vaccine Quad IM 3+ YRS 2017-09-10 00:00:00 Completed [facility] Influenza Virus Vaccine Quad IM 3+ YRS 2017-09-10 00:00:00 Completed [facility] Influenza Virus Vaccine Quad IM 3+ YRS 2017-09-10 00:00:00 Completed [facility] Influenza Virus Vaccine Quad IM 3+ YRS 2017-09-10 00:00:00 Completed [facility] Influenza Virus Vaccine Quad IM 3+ YRS 2017-09-10 00:00:00 Completed [facility] Influenza Virus Vaccine Quad IM 3+ YRS 2017-09-10 00:00:00 Completed [facility] Influenza Virus Vaccine Quad IM 3+ YRS 2017-09-10 00:00:00 Completed [facility] Influenza Virus Vaccine Quad IM 3+ YRS 2017-09-10 00:00:00 Completed [facility] Influenza Virus Vaccine Quad IM 3+ YRS 2017-09-10 00:00:00 Completed [facility] Influenza Virus Vaccine Quad IM 3+ YRS 2017-09-10 00:00:00 Completed [facility] Influenza Virus Vaccine Quad IM 3+ YRS 2017-09-10 00:00:00 Completed [facility] Influenza Virus Vaccine Quad IM 3+ YRS 2017-09-10 00:00:00 Completed [facility] Influenza Virus Vaccine Quad IM 3+ YRS 2017-09-10 00:00:00 Completed [facility] Influenza Virus Vaccine Quad IM 3+ YRS 2017-09-10 00:00:00 Completed [facility] Influenza Virus Vaccine Quad IM 3+ YRS 2017-09-10 00:00:00 Completed [facility] Influenza Virus Vaccine Quad IM 3+ YRS 2017-09-10 00:00:00 Completed [facility] Influenza Virus Vaccine Quad IM 3+ YRS 2017-09-10 00:00:00 Completed [facility] TDAP 2016-10-09 00:00:00 Completed [facility] TDAP 2016-10-09 00:00:00 Completed [facility] TDAP 2016-10-09 00:00:00 Completed [facility] TDAP 2016-10-09 00:00:00 Completed [facility] TDAP 2016-10-09 00:00:00 Completed [facility] TDAP 2016-10-09 00:00:00 Completed [facility] TDAP 2016-10-09 00:00:00 Completed [facility] TDAP 2016-10-09 00:00:00 Completed [facility] TDAP 2016-10-09 00:00:00 Completed [facility] TDAP 2016-10-09 00:00:00 Completed [facility] TDAP 2016-10-09 00:00:00 Completed [facility] TDAP 2016-10-09 00:00:00 Completed [facility] TDAP 2016-10-09 00:00:00 Completed [facility] TDAP 2016-10-09 00:00:00 Completed [facility] TDAP 2016-10-09 00:00:00 Completed [facility] TDAP 2016-10-09 00:00:00 Completed [facility] TDAP 2016-10-09 00:00:00 Completed [facility] TDAP 2016-10-09 00:00:00 Completed [facility] TDAP 2016-10-09 00:00:00 Completed [facility] TDAP 2016-10-09 00:00:00 Completed [facility] TDAP 2016-10-09 00:00:00 Completed [facility] TDAP 2016-10-09 00:00:00 Completed [facility] TDAP 2016-10-09 00:00:00 Completed [facility] TDAP 2016-10-09 00:00:00 Completed [facility] TDAP 2016-10-09 00:00:00 Completed [facility] TDAP 2016-10-09 00:00:00 Completed [facility] TDAP 2016-10-09 00:00:00 Completed [facility] TDAP 2016-10-09 00:00:00 Completed [facility] TDAP 2016-10-09 00:00:00 Completed [facility] TDAP 2016-10-09 00:00:00 Completed [facility] TDAP 2016-10-09 00:00:00 Completed [facility] TDAP 2016-10-09 00:00:00 Completed [facility] TDAP 2016-10-09 00:00:00 Completed [facility] TDAP 2016-10-09 00:00:00 Completed [facility] TDAP 2016-10-09 00:00:00 Completed [facility] TDAP 2016-10-09 00:00:00 Completed [facility] TDAP 2016-10-09 00:00:00 Completed [facility] TDAP 2016-10-09 00:00:00 Completed [facility] TDAP 2016-10-09 00:00:00 Completed [facility] TDAP 2016-10-09 00:00:00 Completed [facility] TDAP 2016-10-09 00:00:00 Completed [facility] TDAP 2016-10-09 00:00:00 Completed [facility] TDAP 2016-10-09 00:00:00 Completed [facility] TDAP 2016-10-09 00:00:00 Completed [facility] TDAP 2016-10-09 00:00:00 Completed [facility] TDAP 2016-10-09 00:00:00 Completed [facility] TDAP 2016-10-09 00:00:00 Completed [facility] TDAP 2016-10-09 00:00:00 Completed [facility] TDAP 2016-10-09 00:00:00 Completed [facility] TDAP 2016-10-09 00:00:00 Completed [facility] TDAP 2016-10-09 00:00:00 Completed [facility] TDAP 2016-10-09 00:00:00 Completed [facility] TDAP 2016-10-09 00:00:00 Completed [facility] TDAP 2016-10-09 00:00:00 Completed [facility] TDAP 2016-10-09 00:00:00 Completed [facility] TDAP 2016-10-09 00:00:00 Completed [facility] TDAP 2016-10-09 00:00:00 Completed [facility] TDAP 2016-10-09 00:00:00 Completed [facility] TDAP 2016-10-09 00:00:00 Completed [facility] TDAP 2016-10-09 00:00:00 Completed [facility] TDAP 2016-10-09 00:00:00 Completed [facility] TDAP 2016-10-09 00:00:00 Completed [facility] TDAP 2016-10-09 00:00:00 Completed [facility] TDAP 2016-10-09 00:00:00 Completed [facility] TDAP 2016-10-09 00:00:00 Completed [facility] TDAP 2016-10-09 00:00:00 Completed [facility] TDAP 2016-10-09 00:00:00 Completed [facility] TDAP 2016-10-09 00:00:00 Completed [facility] TDAP 2016-10-09 00:00:00 Completed [facility] TDAP 2016-10-09 00:00:00 Completed [facility] TDAP 2016-10-09 00:00:00 Completed [facility] TDAP 2016-10-09 00:00:00 Completed [facility] TDAP 2016-10-09 00:00:00 Completed [facility] TDAP 2016-10-09 00:00:00 Completed [facility] TDAP 2016-10-09 00:00:00 Completed [facility] TDAP 2016-10-09 00:00:00 Completed [facility] TDAP 2016-10-09 00:00:00 Completed [facility] TDAP 2016-10-09 00:00:00 Completed [facility] TDAP 2016-10-09 00:00:00 Completed [facility] TDAP 2016-10-09 00:00:00 Completed [facility] TDAP 2016-10-09 00:00:00 Completed [facility] TDAP 2016-10-09 00:00:00 Completed [facility] TDAP 2016-10-09 00:00:00 Completed [facility] TDAP 2016-10-09 00:00:00 Completed [facility] TDAP 2016-10-09 00:00:00 Completed [facility] TDAP 2016-10-09 00:00:00 Completed [facility] TDAP 2016-10-09 00:00:00 Completed [facility] TDAP 2016-10-09 00:00:00 Completed [facility] TDAP 2016-10-09 00:00:00 Completed [facility] TDAP 2016-10-09 00:00:00 Completed [facility] TDAP 2016-10-09 00:00:00 Completed [facility] TDAP 2016-10-09 00:00:00 Completed [facility] TDAP 2016-10-09 00:00:00 Completed [facility] TDAP 2016-10-09 00:00:00 Completed [facility] TDAP 2016-10-09 00:00:00 Completed [facility] TDAP 2016-10-09 00:00:00 Completed [facility] TDAP 2016-10-09 00:00:00 Completed [facility] TDAP 2016-10-09 00:00:00 Completed [facility] TDAP 2016-10-09 00:00:00 Completed [facility] TDAP 2016-10-09 00:00:00 Completed [facility] TDAP 2016-10-09 00:00:00 Completed [facility] TDAP 2016-10-09 00:00:00 Completed [facility] TDAP 2016-10-09 00:00:00 Completed [facility] TDAP 2016-10-09 00:00:00 Completed [facility] TDAP 2016-10-09 00:00:00 Completed [facility] TDAP 2016-10-09 00:00:00 Completed [facility] TDAP 2016-10-09 00:00:00 Completed [facility] TDAP 2016-10-09 00:00:00 Completed [facility] Influenza Virus Vaccine Quad IM Multi-dose 6+ MO 2016-09-04 00:00:00 Completed [facility] Influenza Virus Vaccine Quad IM Multi-dose 6+ MO 2016-09-04 00:00:00 Completed [facility] Influenza Virus Vaccine Quad IM Multi-dose 6+ MO 2016-09-04 00:00:00 Completed [facility] Influenza Virus Vaccine Quad IM Multi-dose 6+ MO 2016-09-04 00:00:00 Completed [facility] Influenza Virus Vaccine Quad IM Multi-dose 6+ MO 2016-09-04 00:00:00 Completed [facility] Influenza Virus Vaccine Quad IM Multi-dose 6+ MO 2016-09-04 00:00:00 Completed [facility] Influenza Virus Vaccine Quad IM Multi-dose 6+ MO 2016-09-04 00:00:00 Completed [facility] Influenza Virus Vaccine Quad IM Multi-dose 6+ MO 2016-09-04 00:00:00 Completed [facility] Influenza Virus Vaccine Quad IM Multi-dose 6+ MO 2016-09-04 00:00:00 Completed [facility] Influenza Virus Vaccine Quad IM Multi-dose 6+ MO 2016-09-04 00:00:00 Completed [facility] Influenza Virus Vaccine Quad IM Multi-dose 6+ MO 2016-09-04 00:00:00 Completed [facility] Influenza Virus Vaccine Quad IM Multi-dose 6+ MO 2016-09-04 00:00:00 Completed [facility] Influenza Virus Vaccine Quad IM Multi-dose 6+ MO 2016-09-04 00:00:00 Completed [facility] Influenza Virus Vaccine Quad IM Multi-dose 6+ MO 2016-09-04 00:00:00 Completed [facility] Influenza Virus Vaccine Quad IM Multi-dose 6+ MO 2016-09-04 00:00:00 Completed [facility] Influenza Virus Vaccine Quad IM Multi-dose 6+ MO 2016-09-04 00:00:00 Completed [facility] Influenza Virus Vaccine Quad IM Multi-dose 6+ MO 2016-09-04 00:00:00 Completed [facility] Influenza Virus Vaccine Quad IM Multi-dose 6+ MO 2016-09-04 00:00:00 Completed [facility] Influenza Virus Vaccine Quad IM Multi-dose 6+ MO 2016-09-04 00:00:00 Completed [facility] Influenza Virus Vaccine Quad IM Multi-dose 6+ MO 2016-09-04 00:00:00 Completed [facility] Influenza Virus Vaccine Quad IM Multi-dose 6+ MO 2016-09-04 00:00:00 Completed [facility] Influenza Virus Vaccine Quad IM Multi-dose 6+ MO 2016-09-04 00:00:00 Completed [facility] Influenza Virus Vaccine Quad IM Multi-dose 6+ MO 2016-09-04 00:00:00 Completed [facility] Influenza Virus Vaccine Quad IM Multi-dose 6+ MO 2016-09-04 00:00:00 Completed [facility] Influenza Virus Vaccine Quad IM Multi-dose 6+ MO 2016-09-04 00:00:00 Completed [facility] Influenza Virus Vaccine Quad IM Multi-dose 6+ MO 2016-09-04 00:00:00 Completed [facility] Influenza Virus Vaccine Quad IM Multi-dose 6+ MO 2016-09-04 00:00:00 Completed [facility] Influenza Virus Vaccine Quad IM Multi-dose 6+ MO 2016-09-04 00:00:00 Completed [facility] Influenza Virus Vaccine Quad IM Multi-dose 6+ MO 2016-09-04 00:00:00 Completed [facility] Influenza Virus Vaccine Quad IM Multi-dose 6+ MO 2016-09-04 00:00:00 Completed [facility] Influenza Virus Vaccine Quad IM Multi-dose 6+ MO 2016-09-04 00:00:00 Completed [facility] Influenza Virus Vaccine Quad IM Multi-dose 6+ MO 2016-09-04 00:00:00 Completed [facility] Influenza Virus Vaccine Quad IM Multi-dose 6+ MO 2016-09-04 00:00:00 Completed [facility] Influenza Virus Vaccine Quad IM Multi-dose 6+ MO 2016-09-04 00:00:00 Completed [facility] Influenza Virus Vaccine Quad IM Multi-dose 6+ MO 2016-09-04 00:00:00 Completed [facility] Influenza Virus Vaccine Quad IM Multi-dose 6+ MO 2016-09-04 00:00:00 Completed [facility] Influenza Virus Vaccine Quad IM Multi-dose 6+ MO 2016-09-04 00:00:00 Completed [facility] Influenza Virus Vaccine Quad IM Multi-dose 6+ MO 2016-09-04 00:00:00 Completed [facility] Influenza Virus Vaccine Quad IM Multi-dose 6+ MO 2016-09-04 00:00:00 Completed [facility] Influenza Virus Vaccine Quad IM Multi-dose 6+ MO 2016-09-04 00:00:00 Completed [facility] Influenza Virus Vaccine Quad IM Multi-dose 6+ MO 2016-09-04 00:00:00 Completed [facility] Influenza Virus Vaccine Quad IM Multi-dose 6+ MO 2016-09-04 00:00:00 Completed [facility] Influenza Virus Vaccine Quad IM Multi-dose 6+ MO 2016-09-04 00:00:00 Completed [facility] Influenza Virus Vaccine Quad IM Multi-dose 6+ MO 2016-09-04 00:00:00 Completed [facility] Influenza Virus Vaccine Quad IM Multi-dose 6+ MO 2016-09-04 00:00:00 Completed [facility] Influenza Virus Vaccine Quad IM Multi-dose 6+ MO 2016-09-04 00:00:00 Completed [facility] Influenza Virus Vaccine Quad IM Multi-dose 6+ MO 2016-09-04 00:00:00 Completed [facility] Influenza Virus Vaccine Quad IM Multi-dose 6+ MO 2016-09-04 00:00:00 Completed [facility] Influenza Virus Vaccine Quad IM Multi-dose 6+ MO 2016-09-04 00:00:00 Completed [facility] Influenza Virus Vaccine Quad IM Multi-dose 6+ MO 2016-09-04 00:00:00 Completed [facility] Influenza Virus Vaccine Quad IM Multi-dose 6+ MO 2016-09-04 00:00:00 Completed [facility] Influenza Virus Vaccine Quad IM Multi-dose 6+ MO 2016-09-04 00:00:00 Completed [facility] Influenza Virus Vaccine Quad IM Multi-dose 6+ MO 2016-09-04 00:00:00 Completed [facility] Influenza Virus Vaccine Quad IM Multi-dose 6+ MO 2016-09-04 00:00:00 Completed [facility] Influenza Virus Vaccine Quad IM Multi-dose 6+ MO 2016-09-04 00:00:00 Completed [facility] Influenza Virus Vaccine Quad IM Multi-dose 6+ MO 2016-09-04 00:00:00 Completed [facility] Influenza Virus Vaccine Quad IM Multi-dose 6+ MO 2016-09-04 00:00:00 Completed [facility] Influenza Virus Vaccine Quad IM Multi-dose 6+ MO 2016-09-04 00:00:00 Completed [facility] Influenza Virus Vaccine Quad IM Multi-dose 6+ MO 2016-09-04 00:00:00 Completed [facility] Influenza Virus Vaccine Quad IM Multi-dose 6+ MO 2016-09-04 00:00:00 Completed [facility] Influenza Virus Vaccine Quad IM Multi-dose 6+ MO 2016-09-04 00:00:00 Completed [facility] Influenza Virus Vaccine Quad IM Multi-dose 6+ MO 2016-09-04 00:00:00 Completed [facility] Influenza Virus Vaccine Quad IM Multi-dose 6+ MO 2016-09-04 00:00:00 Completed [facility] Influenza Virus Vaccine Quad IM Multi-dose 6+ MO 2016-09-04 00:00:00 Completed [facility] Influenza Virus Vaccine Quad IM Multi-dose 6+ MO 2016-09-04 00:00:00 Completed [facility] Influenza Virus Vaccine Quad IM Multi-dose 6+ MO 2016-09-04 00:00:00 Completed [facility] Influenza Virus Vaccine Quad IM Multi-dose 6+ MO 2016-09-04 00:00:00 Completed [facility] Influenza Virus Vaccine Quad IM Multi-dose 6+ MO 2016-09-04 00:00:00 [facility] [facility] Influ[facility] Virus Vaccine Quad IM Multi-dose 6+ MO 2016-09-04 00:00:00 Completed [facility] Influenza Virus Vaccine Quad IM Multi-dose 6+ MO 2016-09-04 00:00:00 Completed [facility] Influenza Virus Vaccine Quad IM Multi-dose 6+ MO 2016-09-04 00:00:00 Completed [facility] Influenza Virus Vaccine Quad IM Multi-dose 6+ MO 2016-09-04 00:00:00 Completed [facility] Influenza Virus Vaccine Quad IM Multi-dose 6+ MO 2016-09-04 00:00:00 Completed [facility] Influenza Virus Vaccine Quad IM Multi-dose 6+ MO 2016-09-04 00:00:00 Completed [facility] Influenza Virus Vaccine Quad IM Multi-dose 6+ MO 2016-09-04 00:00:00 Completed [facility] Influenza Virus Vaccine Quad IM Multi-dose 6+ MO 2016-09-04 00:00:00 Completed [facility] Influenza Virus Vaccine Quad IM Multi-dose 6+ MO 2016-09-04 00:00:00 Completed [facility] Influenza Virus Vaccine Quad IM Multi-dose 6+ MO 2016-09-04 00:00:00 Completed [facility] Influenza Virus Vaccine Quad IM Multi-dose 6+ MO 2016-09-04 00:00:00 Completed [facility] Influenza Virus Vaccine Quad IM Multi-dose 6+ MO 2016-09-04 00:00:00 Completed [facility] Influenza Virus Vaccine Quad IM Multi-dose 6+ MO 2016-09-04 00:00:00 Completed [facility] Influenza Virus Vaccine Quad IM Multi-dose 6+ MO 2016-09-04 00:00:00 Completed [facility] Influenza Virus Vaccine Quad IM Multi-dose 6+ MO 2016-09-04 00:00:00 Completed [facility] Influenza Virus Vaccine Quad IM Multi-dose 6+ MO 2016-09-04 00:00:00 Completed [facility] Influenza Virus Vaccine Quad IM Multi-dose 6+ MO 2016-09-04 00:00:00 Completed [facility] Influenza Virus Vaccine Quad IM Multi-dose 6+ MO 2016-09-04 00:00:00 Completed [facility] Influenza Virus Vaccine Quad IM Multi-dose 6+ MO 2016-09-04 00:00:00 Completed [facility] Influenza Virus Vaccine Quad IM Multi-dose 6+ MO 2016-09-04 00:00:00 Completed [facility] Influenza Virus Vaccine Quad IM Multi-dose 6+ MO 2016-09-04 00:00:00 Completed [facility] Influenza Virus Vaccine Quad IM Multi-dose 6+ MO 2016-09-04 00:00:00 Completed [facility] Influenza Virus Vaccine Quad IM Multi-dose 6+ MO 2016-09-04 00:00:00 Completed [facility] Influenza Virus Vaccine Quad IM Multi-dose 6+ MO 2016-09-04 00:00:00 Completed [facility] Influenza Virus Vaccine Quad IM Multi-dose 6+ MO 2016-09-04 00:00:00 Completed [facility] Influenza Virus Vaccine Quad IM Multi-dose 6+ MO 2016-09-04 00:00:00 Completed [facility] Influenza Virus Vaccine Quad IM Multi-dose 6+ MO 2016-09-04 00:00:00 Completed [facility] Influenza Virus Vaccine Quad IM Multi-dose 6+ MO 2016-09-04 00:00:00 Completed [facility] Influenza Virus Vaccine Quad IM Multi-dose 6+ MO 2016-09-04 00:00:00 Completed [facility] Influenza Virus Vaccine Quad IM Multi-dose 6+ MO 2016-09-04 00:00:00 Completed [facility] Influenza Virus Vaccine Quad IM Multi-dose 6+ MO 2016-09-04 00:00:00 Completed [facility] Influenza Virus Vaccine Quad IM Multi-dose 6+ MO 2016-09-04 00:00:00 Completed [facility] Influenza Virus Vaccine Quad IM Multi-dose 6+ MO 2016-09-04 00:00:00 Completed [facility] Influenza Virus Vaccine Quad IM Multi-dose 6+ MO 2016-09-04 00:00:00 Completed [facility] Influenza Virus Vaccine Quad IM Multi-dose 6+ MO 2016-09-04 00:00:00 Completed [facility] Influenza Virus Vaccine Quad IM Multi-dose 6+ MO 2016-09-04 00:00:00 Completed [facility] Influenza Virus Vaccine Quad IM Multi-dose 6+ MO 2016-09-04 00:00:00 Completed [facility] Influenza Virus Vaccine Quad IM Multi-dose 6+ MO 2016-09-04 00:00:00 Completed [facility] Influenza Virus Vaccine Quad IM Multi-dose 6+ MO 2016-09-04 00:00:00 Completed [facility] Influenza Virus Vaccine Quad IM Multi-dose 6+ MO 2016-09-04 00:00:00 Completed [facility] Influenza Virus Vaccine Quad ID 18-64 YRS 2015-08-23 00:00:00 Completed [facility] Influenza Virus Vaccine Quad ID 18-64 YRS 2015-08-23 00:00:00 Completed [facility] Influenza Virus Vaccine Quad ID 18-64 YRS 2015-08-23 00:00:00 Completed [facility] Influenza Virus Vaccine Quad ID 18-64 YRS 2015-08-23 00:00:00 Completed [facility] Influenza Virus Vaccine Quad ID 18-64 YRS 2015-08-23 00:00:00 Completed [facility] Influenza Virus Vaccine Quad ID 18-64 YRS 2015-08-23 00:00:00 Completed [facility] Influenza Virus Vaccine Quad ID 18-64 YRS 2015-08-23 00:00:00 Completed [facility] Influenza Virus Vaccine Quad ID 18-64 YRS 2015-08-23 00:00:00 Completed [facility] Influenza Virus Vaccine Quad ID 18-64 YRS 2015-08-23 00:00:00 Completed [facility] Influenza Virus Vaccine Quad ID 18-64 YRS 2015-08-23 00:00:00 Completed [facility] Influenza Virus Vaccine Quad ID 18-64 YRS 2015-08-23 00:00:00 Completed [facility] Influenza Virus Vaccine Quad ID 18-64 YRS 2015-08-23 00:00:00 Completed [facility] Influenza Virus Vaccine Quad ID 18-64 YRS 2015-08-23 00:00:00 Completed [facility] Influenza Virus Vaccine Quad ID 18-64 YRS 2015-08-23 00:00:00 Completed [facility] Influenza Virus Vaccine Quad ID 18-64 YRS 2015-08-23 00:00:00 Completed [facility] Influenza Virus Vaccine Quad ID 18-64 YRS 2015-08-23 00:00:00 Completed [facility] Influenza Virus Vaccine Quad ID 18-64 YRS 2015-08-23 00:00:00 Completed [facility] Influenza Virus Vaccine Quad ID 18-64 YRS 2015-08-23 00:00:00 Completed [facility] Influenza Virus Vaccine Quad ID 18-64 YRS 2015-08-23 00:00:00 Completed [facility] Influenza Virus Vaccine Quad ID 18-64 YRS 2015-08-23 00:00:00 Completed [facility] Influenza Virus Vaccine Quad ID 18-64 YRS 2015-08-23 00:00:00 Completed [facility] Influenza Virus Vaccine Quad ID 18-64 YRS 2015-08-23 00:00:00 Completed [facility] Influenza Virus Vaccine Quad ID 18-64 YRS 2015-08-23 00:00:00 Completed [facility] Influenza Virus Vaccine Quad ID 18-64 YRS 2015-08-23 00:00:00 Completed [facility] Influenza Virus Vaccine Quad ID 18-64 YRS 2015-08-23 00:00:00 Completed [facility] Influenza Virus Vaccine Quad ID 18-64 YRS 2015-08-23 00:00:00 Completed [facility] Influenza Virus Vaccine Quad ID 18-64 YRS 2015-08-23 00:00:00 Completed [facility] Influenza Virus Vaccine Quad ID 18-64 YRS 2015-08-23 00:00:00 Completed [facility] Influenza Virus Vaccine Quad ID 18-64 YRS 2015-08-23 00:00:00 Completed [facility] Influenza Virus Vaccine Quad ID 18-64 YRS 2015-08-23 00:00:00 Completed [facility] Influenza Virus Vaccine Quad ID 18-64 YRS 2015-08-23 00:00:00 Completed [facility] Influenza Virus Vaccine Quad ID 18-64 YRS 2015-08-23 00:00:00 Completed [facility] Influenza Virus Vaccine Quad ID 18-64 YRS 2015-08-23 00:00:00 Completed [facility] Influenza Virus Vaccine Quad ID 18-64 YRS 2015-08-23 00:00:00 Completed [facility] Influenza Virus Vaccine Quad ID 18-64 YRS 2015-08-23 00:00:00 Completed [facility] Influenza Virus Vaccine Quad ID 18-64 YRS 2015-08-23 00:00:00 Completed [facility] Influenza Virus Vaccine Quad ID 18-64 YRS 2015-08-23 00:00:00 Completed [facility] Influenza Virus Vaccine Quad ID 18-64 YRS 2015-08-23 00:00:00 Completed [facility] Influenza Virus Vaccine Quad ID 18-64 YRS 2015-08-23 00:00:00 Completed [facility] Influenza Virus Vaccine Quad ID 18-64 YRS 2015-08-23 00:00:00 Completed [facility] Influenza Virus Vaccine Quad ID 18-64 YRS 2015-08-23 00:00:00 Completed [facility] Influenza Virus Vaccine Quad ID 18-64 YRS 2015-08-23 00:00:00 Completed [facility] Influenza Virus Vaccine Quad ID 18-64 YRS 2015-08-23 00:00:00 Completed [facility] Influenza Virus Vaccine Quad ID 18-64 YRS 2015-08-23 00:00:00 Completed [facility] Influenza Virus Vaccine Quad ID 18-64 YRS 2015-08-23 00:00:00 Completed [facility] Influenza Virus Vaccine Quad ID 18-64 YRS 2015-08-23 00:00:00 Completed [facility] Influenza Virus Vaccine Quad ID 18-64 YRS 2015-08-23 00:00:00 Completed [facility] Influenza Virus Vaccine Quad ID 18-64 YRS 2015-08-23 00:00:00 Completed [facility] Influenza Virus Vaccine Quad ID 18-64 YRS 2015-08-23 00:00:00 Completed [facility] Influenza Virus Vaccine Quad ID 18-64 YRS 2015-08-23 00:00:00 Completed [facility] Influenza Virus Vaccine Quad ID 18-64 YRS 2015-08-23 00:00:00 Completed [facility] Influenza Virus Vaccine Quad ID 18-64 YRS 2015-08-23 00:00:00 Completed [facility] Influenza Virus Vaccine Quad ID 18-64 YRS 2015-08-23 00:00:00 Completed [facility] Influenza Virus Vaccine Quad ID 18-64 YRS 2015-08-23 00:00:00 Completed [facility] Influenza Virus Vaccine Quad ID 18-64 YRS 2015-08-23 00:00:00 Completed [facility] Influenza Virus Vaccine Quad ID 18-64 YRS 2015-08-23 00:00:00 Completed [facility] Influenza Virus Vaccine Quad ID 18-64 YRS 2015-08-23 00:00:00 Completed [facility] Influenza Virus Vaccine Quad ID 18-64 YRS 2015-08-23 00:00:00 Completed [facility] Influenza Virus Vaccine Quad ID 18-64 YRS 2015-08-23 00:00:00 Completed [facility] Influenza Virus Vaccine Quad ID 18-64 YRS 2015-08-23 00:00:00 Completed [facility] Influenza Virus Vaccine Quad ID 18-64 YRS 2015-08-23 00:00:00 Completed [facility] Influenza Virus Vaccine Quad ID 18-64 YRS 2015-08-23 00:00:00 Completed [facility] Influenza Virus Vaccine Quad ID 18-64 YRS 2015-08-23 00:00:00 Completed [facility] Influenza Virus Vaccine Quad ID 18-64 YRS 2015-08-23 00:00:00 Completed [facility] Influenza Virus Vaccine Quad ID 18-64 YRS 2015-08-23 00:00:00 Completed [facility] Influenza Virus Vaccine Quad ID 18-64 YRS 2015-08-23 00:00:00 Completed [facility] Influenza Virus Vaccine Quad ID 18-64 YRS 2015-08-23 00:00:00 Completed [facility] Influenza Virus Vaccine Quad ID 18-64 YRS 2015-08-23 00:00:00 Completed [facility] Influenza Virus Vaccine Quad ID 18-64 YRS 2015-08-23 00:00:00 Completed [facility] Influenza Virus Vaccine Quad ID 18-64 YRS 2015-08-23 00:00:00 Completed [facility] Influenza Virus Vaccine Quad ID 18-64 YRS 2015-08-23 00:00:00 Completed [facility] Influenza Virus Vaccine Quad ID 18-64 YRS 2015-08-23 00:00:00 Completed [facility] Influenza Virus Vaccine Quad ID 18-64 YRS 2015-08-23 00:00:00 Completed [facility] Influenza Virus Vaccine Quad ID 18-64 YRS 2015-08-23 00:00:00 Completed [facility] Influenza Virus Vaccine Quad ID 18-64 YRS 2015-08-23 00:00:00 Completed [facility] Influenza Virus Vaccine Quad ID 18-64 YRS 2015-08-23 00:00:00 Completed [facility] Influenza Virus Vaccine Quad ID 18-64 YRS 2015-08-23 00:00:00 Completed [facility] Influenza Virus Vaccine Quad ID 18-64 YRS 2015-08-23 00:00:00 Completed [facility] Influenza Virus Vaccine Quad ID 18-64 YRS 2015-08-23 00:00:00 Completed [facility] Influenza Virus Vaccine Quad ID 18-64 YRS 2015-08-23 00:00:00 Completed [facility] Influenza Virus Vaccine Quad ID 18-64 YRS 2015-08-23 00:00:00 Completed [facility] Influenza Virus Vaccine Quad ID 18-64 YRS 2015-08-23 00:00:00 Completed [facility] Influenza Virus Vaccine Quad ID 18-64 YRS 2015-08-23 00:00:00 Completed [facility] Influenza Virus Vaccine Quad ID 18-64 YRS 2015-08-23 00:00:00 Completed [facility] Influenza Virus Vaccine Quad ID 18-64 YRS 2015-08-23 00:00:00 Completed [facility] Influenza Virus Vaccine Quad ID 18-64 YRS 2015-08-23 00:00:00 Completed [facility] Influenza Virus Vaccine Quad ID 18-64 YRS 2015-08-23 00:00:00 Completed [facility] Influenza Virus Vaccine Quad ID 18-64 YRS 2015-08-23 00:00:00 Completed [facility] Influenza Virus Vaccine Quad ID 18-64 YRS 2015-08-23 00:00:00 Completed [facility] Influenza Virus Vaccine Quad ID 18-64 YRS 2015-08-23 00:00:00 Completed [facility] Influenza Virus Vaccine Quad ID 18-64 YRS 2015-08-23 00:00:00 Completed [facility] Influenza Virus Vaccine Quad ID 18-64 YRS 2015-08-23 00:00:00 Completed [facility] Influenza Virus Vaccine Quad ID 18-64 YRS 2015-08-23 00:00:00 Completed [facility] Influenza Virus Vaccine Quad ID 18-64 YRS 2015-08-23 00:00:00 Completed [facility] Influenza Virus Vaccine Quad ID 18-64 YRS 2015-08-23 00:00:00 Completed [facility] Influenza Virus Vaccine Quad ID 18-64 YRS 2015-08-23 00:00:00 Completed [facility] Influenza Virus Vaccine Quad ID 18-64 YRS 2015-08-23 00:00:00 Completed [facility] Influenza Virus Vaccine Quad ID 18-64 YRS 2015-08-23 00:00:00 Completed [facility] Influenza Virus Vaccine Quad ID 18-64 YRS 2015-08-23 00:00:00 Completed [facility] Influenza Virus Vaccine Quad ID 18-64 YRS 2015-08-23 00:00:00 Completed [facility] Influenza Virus Vaccine Quad ID 18-64 YRS 2015-08-23 00:00:00 Completed [facility] Influenza Virus Vaccine Quad ID 18-64 YRS 2015-08-23 00:00:00 Completed [facility] Influenza Virus Vaccine Quad ID 18-64 YRS 2015-08-23 00:00:00 Completed [facility] Influenza Virus Vaccine Quad ID 18-64 YRS 2015-08-23 00:00:00 Completed [facility] Influenza Virus Vaccine Quad ID 18-64 YRS 2015-08-23 00:00:00 Completed [facility] Influenza Virus Vaccine Quad ID 18-64 YRS 2015-08-23 00:00:00 Completed [facility] Influenza Virus Vaccine Quad ID 18-64 YRS 2015-08-23 00:00:00 Completed [facility] Influenza Virus Vaccine Quad ID 18-64 YRS 2015-08-23 00:00:00 Completed [facility] Influenza Virus Vaccine (3+ yrs) 2014-08-14 00:00:00 Completed [facility] Influenza Virus Vaccine (3+ yrs) 2014-08-14 00:00:00 Completed [facility] Influenza Virus Vaccine (3+ yrs) 2014-08-14 00:00:00 Completed [facility] Influenza Virus Vaccine (3+ yrs) 2014-08-14 00:00:00 Completed [facility] Influenza Virus Vaccine (3+ yrs) 2014-08-14 00:00:00 Completed [facility] Influenza Virus Vaccine (3+ yrs) 2014-08-14 00:00:00 Completed [facility] Influenza Virus Vaccine (3+ yrs) 2014-08-14 00:00:00 Completed [facility] Influenza Virus Vaccine (3+ yrs) 2014-08-14 00:00:00 Completed [facility] Influenza Virus Vaccine (3+ yrs) 2014-08-14 00:00:00 Completed [facility] Influenza Virus Vaccine (3+ yrs) 2014-08-14 00:00:00 Completed [facility] Influenza Virus Vaccine (3+ yrs) 2014-08-14 00:00:00 Completed [facility] Influenza Virus Vaccine (3+ yrs) 2014-08-14 00:00:00 Completed [facility] Influenza Virus Vaccine (3+ yrs) 2014-08-14 00:00:00 Completed [facility] Influenza Virus Vaccine (3+ yrs) 2014-08-14 00:00:00 Completed [facility] Influenza Virus Vaccine (3+ yrs) 2014-08-14 00:00:00 Completed [facility] Influenza Virus Vaccine (3+ yrs) 2014-08-14 00:00:00 Completed [facility] Influenza Virus Vaccine (3+ yrs) 2014-08-14 00:00:00 Completed [facility] Influenza Virus Vaccine (3+ yrs) 2014-08-14 00:00:00 Completed [facility] Influenza Virus Vaccine (3+ yrs) 2014-08-14 00:00:00 Completed [facility] Influenza Virus Vaccine (3+ yrs) 2014-08-14 00:00:00 Completed [facility] Influenza Virus Vaccine (3+ yrs) 2014-08-14 00:00:00 Completed [facility] Influenza Virus Vaccine (3+ yrs) 2014-08-14 00:00:00 Completed [facility] Influenza Virus Vaccine (3+ yrs) 2014-08-14 00:00:00 Completed [facility] Influenza Virus Vaccine (3+ yrs) 2014-08-14 00:00:00 Completed [facility] Influenza Virus Vaccine (3+ yrs) 2014-08-14 00:00:00 Completed [facility] Influenza Virus Vaccine (3+ yrs) 2014-08-14 00:00:00 Completed [facility] Influenza Virus Vaccine (3+ yrs) 2014-08-14 00:00:00 Completed [facility] Influenza Virus Vaccine (3+ yrs) 2014-08-14 00:00:00 Completed [facility] Influenza Virus Vaccine (3+ yrs) 2014-08-14 00:00:00 Completed [facility] Influenza Virus Vaccine (3+ yrs) 2014-08-14 00:00:00 Completed [facility] Influenza Virus Vaccine (3+ yrs) 2014-08-14 00:00:00 Completed [facility] Influenza Virus Vaccine (3+ yrs) 2014-08-14 00:00:00 Completed [facility] Influenza Virus Vaccine (3+ yrs) 2014-08-14 00:00:00 Completed [facility] Influenza Virus Vaccine (3+ yrs) 2014-08-14 00:00:00 Completed [facility] Influenza Virus Vaccine (3+ yrs) 2014-08-14 00:00:00 Completed [facility] Influenza Virus Vaccine (3+ yrs) 2014-08-14 00:00:00 Completed [facility] Influenza Virus Vaccine (3+ yrs) 2014-08-14 00:00:00 Completed [facility] Influenza Virus Vaccine (3+ yrs) 2014-08-14 00:00:00 Completed [facility] Influenza Virus Vaccine (3+ yrs) 2014-08-14 00:00:00 Completed [facility] Influenza Virus Vaccine (3+ yrs) 2014-08-14 00:00:00 Completed [facility] Influenza Virus Vaccine (3+ yrs) 2014-08-14 00:00:00 Completed [facility] Influenza Virus Vaccine (3+ yrs) 2014-08-14 00:00:00 Completed [facility] Influenza Virus Vaccine (3+ yrs) 2014-08-14 00:00:00 Completed [facility] Influenza Virus Vaccine (3+ yrs) 2014-08-14 00:00:00 Completed [facility] Influenza Virus Vaccine (3+ yrs) 2014-08-14 00:00:00 Completed [facility] Influenza Virus Vaccine (3+ yrs) 2014-08-14 00:00:00 Completed [facility] Influenza Virus Vaccine (3+ yrs) 2014-08-14 00:00:00 Completed [facility] Influenza Virus Vaccine (3+ yrs) 2014-08-14 00:00:00 Completed [facility] Influenza Virus Vaccine (3+ yrs) 2014-08-14 00:00:00 Completed [facility] Influenza Virus Vaccine (3+ yrs) 2014-08-14 00:00:00 Completed [facility] Influenza Virus Vaccine (3+ yrs) 2014-08-14 00:00:00 Completed [facility] Influenza Virus Vaccine (3+ yrs) 2014-08-14 00:00:00 Completed [facility] Influenza Virus Vaccine (3+ yrs) 2014-08-14 00:00:00 Completed [facility] Influenza Virus Vaccine (3+ yrs) 2014-08-14 00:00:00 Completed [facility] Influenza Virus Vaccine (3+ yrs) 2014-08-14 00:00:00 Completed [facility] Influenza Virus Vaccine (3+ yrs) 2014-08-14 00:00:00 Completed [facility] Influenza Virus Vaccine (3+ yrs) 2014-08-14 00:00:00 Completed [facility] Influenza Virus Vaccine (3+ yrs) 2014-08-14 00:00:00 Completed [facility] Influenza Virus Vaccine (3+ yrs) 2014-08-14 00:00:00 Completed [facility] Influenza Virus Vaccine (3+ yrs) 2014-08-14 00:00:00 Completed [facility] Influenza Virus Vaccine (3+ yrs) 2014-08-14 00:00:00 Completed [facility] Influenza Virus Vaccine (3+ yrs) 2014-08-14 00:00:00 Completed [facility] Influenza Virus Vaccine (3+ yrs) 2014-08-14 00:00:00 Completed [facility] Influenza Virus Vaccine (3+ yrs) 2014-08-14 00:00:00 Completed [facility] Influenza Virus Vaccine (3+ yrs) 2014-08-14 00:00:00 Completed [facility] Influenza Virus Vaccine (3+ yrs) 2014-08-14 00:00:00 Completed [facility] Influenza Virus Vaccine (3+ yrs) 2014-08-14 00:00:00 Completed [facility] Influenza Virus Vaccine (3+ yrs) 2014-08-14 00:00:00 Completed [facility] Influenza Virus Vaccine (3+ yrs) 2014-08-14 00:00:00 Completed [facility] Influenza Virus Vaccine (3+ yrs) 2014-08-14 00:00:00 Completed [facility] Influenza Virus Vaccine (3+ yrs) 2014-08-14 00:00:00 Completed [facility] Influenza Virus Vaccine (3+ yrs) 2014-08-14 00:00:00 Completed [facility] Influenza Virus Vaccine (3+ yrs) 2014-08-14 00:00:00 Completed [facility] Influenza Virus Vaccine (3+ yrs) 2014-08-14 00:00:00 Completed [facility] Influenza Virus Vaccine (3+ yrs) 2014-08-14 00:00:00 Completed [facility] Influenza Virus Vaccine (3+ yrs) 2014-08-14 00:00:00 Completed [facility] Influenza Virus Vaccine (3+ yrs) 2014-08-14 00:00:00 Completed [facility] Influenza Virus Vaccine (3+ yrs) 2014-08-14 00:00:00 Completed [facility] Influenza Virus Vaccine (3+ yrs) 2014-08-14 00:00:00 Completed [facility] Influenza Virus Vaccine (3+ yrs) 2014-08-14 00:00:00 Completed [facility] Influenza Virus Vaccine (3+ yrs) 2014-08-14 00:00:00 Completed [facility] Influenza Virus Vaccine (3+ yrs) 2014-08-14 00:00:00 Completed [facility] Influenza Virus Vaccine (3+ yrs) 2014-08-14 00:00:00 Completed [facility] Influenza Virus Vaccine (3+ yrs) 2014-08-14 00:00:00 Completed [facility] Influenza Virus Vaccine (3+ yrs) 2014-08-14 00:00:00 Completed [facility] Influenza Virus Vaccine (3+ yrs) 2014-08-14 00:00:00 Completed [facility] Influenza Virus Vaccine (3+ yrs) 2014-08-14 00:00:00 Completed [facility] Influenza Virus Vaccine (3+ yrs) 2014-08-14 00:00:00 Completed [facility] Influenza Virus Vaccine (3+ yrs) 2014-08-14 00:00:00 Completed [facility] Influenza Virus Vaccine (3+ yrs) 2014-08-14 00:00:00 Completed [facility] Influenza Virus Vaccine (3+ yrs) 2014-08-14 00:00:00 Completed [facility] Influenza Virus Vaccine (3+ yrs) 2014-08-14 00:00:00 Completed [facility] Influenza Virus Vaccine (3+ yrs) 2014-08-14 00:00:00 Completed [facility] Influenza Virus Vaccine (3+ yrs) 2014-08-14 00:00:00 Completed [facility] Influenza Virus Vaccine (3+ yrs) 2014-08-14 00:00:00 Completed [facility] Influenza Virus Vaccine (3+ yrs) 2014-08-14 00:00:00 Completed [facility] Influenza Virus Vaccine (3+ yrs) 2014-08-14 00:00:00 Completed [facility] Influenza Virus Vaccine (3+ yrs) 2014-08-14 00:00:00 Completed [facility] Influenza Virus Vaccine (3+ yrs) 2014-08-14 00:00:00 Completed [facility] Influenza Virus Vaccine (3+ yrs) 2014-08-14 00:00:00 Completed [facility] Influenza Virus Vaccine (3+ yrs) 2014-08-14 00:00:00 Completed [facility] Influenza Virus Vaccine (3+ yrs) 2014-08-14 00:00:00 Completed [facility] Influenza Virus Vaccine (3+ yrs) 2014-08-14 00:00:00 Completed [facility] Influenza Virus Vaccine (3+ yrs) 2014-08-14 00:00:00 Completed [facility] Influenza Virus Vaccine (3+ yrs) 2014-08-14 00:00:00 Completed [facility] Influenza Virus Vaccine (3+ yrs) 2014-08-14 00:00:00 Completed [facility] Influenza Virus Vaccine (3+ yrs) 2014-08-14 00:00:00 Completed [facility] Influenza Virus Vaccine (3+ yrs) 2014-08-14 00:00:00 Completed [facility] Influenza Virus Vaccine 2013-08-08 00:00:00 Completed [facility] Influenza Virus Vaccine 2013-08-08 00:00:00 Completed [facility] Influenza Virus Vaccine 2013-08-08 00:00:00 Completed [facility] Influenza Virus Vaccine 2013-08-08 00:00:00 Completed [facility] Influenza Virus Vaccine 2013-08-08 00:00:00 Completed [facility] Influenza Virus Vaccine 2013-08-08 00:00:00 Completed [facility] Influenza Virus Vaccine 2013-08-08 00:00:00 Completed [facility] Influenza Virus Vaccine 2013-08-08 00:00:00 Completed [facility] Influenza Virus Vaccine 2013-08-08 00:00:00 Completed [facility] Influenza Virus Vaccine 2013-08-08 00:00:00 Completed [facility] Influenza Virus Vaccine 2013-08-08 00:00:00 Completed [facility] Influenza Virus Vaccine 2013-08-08 00:00:00 Completed [facility] Influenza Virus Vaccine 2013-08-08 00:00:00 Completed [facility] Influenza Virus Vaccine 2013-08-08 00:00:00 Completed [facility] Influenza Virus Vaccine 2013-08-08 00:00:00 Completed [facility] Influenza Virus Vaccine 2013-08-08 00:00:00 Completed [facility] Influenza Virus Vaccine 2013-08-08 00:00:00 Completed [facility] Influenza Virus Vaccine 2013-08-08 00:00:00 Completed [facility] Influenza Virus Vaccine 2013-08-08 00:00:00 Completed [facility] Influenza Virus Vaccine 2013-08-08 00:00:00 Completed [facility] Influenza Virus Vaccine 2013-08-08 00:00:00 Completed [facility] Influenza Virus Vaccine 2013-08-08 00:00:00 Completed [facility] Influenza Virus Vaccine 2013-08-08 00:00:00 Completed [facility] Influenza Virus Vaccine 2013-08-08 00:00:00 Completed [facility] Influenza Virus Vaccine 2013-08-08 00:00:00 Completed [facility] Influenza Virus Vaccine 2013-08-08 00:00:00 Completed [facility] Influenza Virus Vaccine 2013-08-08 00:00:00 Completed [facility] Influenza Virus Vaccine 2013-08-08 00:00:00 Completed [facility] Influenza Virus Vaccine 2013-08-08 00:00:00 Completed [facility] Influenza Virus Vaccine 2013-08-08 00:00:00 Completed [facility] Influenza Virus Vaccine 2013-08-08 00:00:00 Completed [facility] Influenza Virus Vaccine 2013-08-08 00:00:00 Completed [facility] Influenza Virus Vaccine 2013-08-08 00:00:00 Completed [facility] Influenza Virus Vaccine 2013-08-08 00:00:00 Completed [facility] Influenza Virus Vaccine 2013-08-08 00:00:00 Completed [facility] Influenza Virus Vaccine 2013-08-08 00:00:00 Completed [facility] Influenza Virus Vaccine 2013-08-08 00:00:00 Completed [facility] Influenza Virus Vaccine 2013-08-08 00:00:00 Completed [facility] Influenza Virus Vaccine 2013-08-08 00:00:00 Completed [facility] Influenza Virus Vaccine 2013-08-08 00:00:00 Completed [facility] Influenza Virus Vaccine 2013-08-08 00:00:00 Completed [facility] Influenza Virus Vaccine 2013-08-08 00:00:00 Completed [facility] Influenza Virus Vaccine 2013-08-08 00:00:00 Completed [facility] Influenza Virus Vaccine 2013-08-08 00:00:00 Completed [facility] Influenza Virus Vaccine 2013-08-08 00:00:00 Completed [facility] Influenza Virus Vaccine 2013-08-08 00:00:00 Completed [facility] Influenza Virus Vaccine 2013-08-08 00:00:00 Completed [facility] Influenza Virus Vaccine 2013-08-08 00:00:00 Completed [facility] Influenza Virus Vaccine 2013-08-08 00:00:00 Completed [facility] Influenza Virus Vaccine 2013-08-08 00:00:00 Completed [facility] Influenza Virus Vaccine 2013-08-08 00:00:00 Completed [facility] Influenza Virus Vaccine 2013-08-08 00:00:00 Completed [facility] Influenza Virus Vaccine 2013-08-08 00:00:00 Completed [facility] Influenza Virus Vaccine 2013-08-08 00:00:00 Completed [facility] Influenza Virus Vaccine 2013-08-08 00:00:00 Completed [facility] Influenza Virus Vaccine 2013-08-08 00:00:00 Completed [facility] Influenza Virus Vaccine 2013-08-08 00:00:00 Completed [facility] Influenza Virus Vaccine 2013-08-08 00:00:00 Completed [facility] Influenza Virus Vaccine 2013-08-08 00:00:00 Completed [facility] Influenza Virus Vaccine 2013-08-08 00:00:00 Completed [facility] Influenza Virus Vaccine 2013-08-08 00:00:00 Completed [facility] Influenza Virus Vaccine 2013-08-08 00:00:00 Completed [facility] Influenza Virus Vaccine 2013-08-08 00:00:00 Completed [facility] Influenza Virus Vaccine 2013-08-08 00:00:00 Completed [facility] Influenza Virus Vaccine 2013-08-08 00:00:00 Completed [facility] Influenza Virus Vaccine 2013-08-08 00:00:00 Completed [facility] Influenza Virus Vaccine 2013-08-08 00:00:00 Completed [facility] Influenza Virus Vaccine 2013-08-08 00:00:00 Completed [facility] Influenza Virus Vaccine 2013-08-08 00:00:00 Completed [facility] Influenza Virus Vaccine 2013-08-08 00:00:00 Completed [facility] Influenza Virus Vaccine 2013-08-08 00:00:00 Completed [facility] Influenza Virus Vaccine 2013-08-08 00:00:00 Completed [facility] Influenza Virus Vaccine 2013-08-08 00:00:00 Completed [facility] Influenza Virus Vaccine 2013-08-08 00:00:00 Completed [facility] Influenza Virus Vaccine 2013-08-08 00:00:00 Completed [facility] Influenza Virus Vaccine 2013-08-08 00:00:00 Completed [facility] Influenza Virus Vaccine 2013-08-08 00:00:00 Completed [facility] Influenza Virus Vaccine 2013-08-08 00:00:00 Completed [facility] Influenza Virus Vaccine 2013-08-08 00:00:00 Completed [facility] Influenza Virus Vaccine 2013-08-08 00:00:00 Completed [facility] Influenza Virus Vaccine 2013-08-08 00:00:00 Completed [facility] Influenza Virus Vaccine 2013-08-08 00:00:00 Completed [facility] Influenza Virus Vaccine 2013-08-08 00:00:00 Completed [facility] Influenza Virus Vaccine 2013-08-08 00:00:00 Completed [facility] Influenza Virus Vaccine 2013-08-08 00:00:00 Completed [facility] Influenza Virus Vaccine 2013-08-08 00:00:00 Completed [facility] Influenza Virus Vaccine 2013-08-08 00:00:00 Completed [facility] Influenza Virus Vaccine 2013-08-08 00:00:00 Completed [facility] Influenza Virus Vaccine 2013-08-08 00:00:00 Completed [facility] Influenza Virus Vaccine 2013-08-08 00:00:00 Completed [facility] Influenza Virus Vaccine 2013-08-08 00:00:00 Completed [facility] Influenza Virus Vaccine 2013-08-08 00:00:00 Completed [facility] Influenza Virus Vaccine 2013-08-08 00:00:00 Completed [facility] Influenza Virus Vaccine 2013-08-08 00:00:00 Completed [facility] Influenza Virus Vaccine 2013-08-08 00:00:00 Completed [facility] Influenza Virus Vaccine 2013-08-08 00:00:00 Completed [facility] Influenza Virus Vaccine 2013-08-08 00:00:00 Completed [facility] Influenza Virus Vaccine 2013-08-08 00:00:00 Completed [facility] Influenza Virus Vaccine 2013-08-08 00:00:00 Completed [facility] Influenza Virus Vaccine 2013-08-08 00:00:00 Completed [facility] Influenza Virus Vaccine 2013-08-08 00:00:00 Completed [facility] Influenza Virus Vaccine 2013-08-08 00:00:00 Completed [facility] Influenza Virus Vaccine 2013-08-08 00:00:00 Completed [facility] Influenza Virus Vaccine 2013-08-08 00:00:00 Completed [facility] Influenza Virus Vaccine 2013-08-08 00:00:00 Completed [facility] Influenza Virus Vaccine 2013-08-08 00:00:00 Completed [facility] Influenza Virus Vaccine 2013-08-08 00:00:00 Completed [facility] Influenza Virus Vaccine 2013-08-08 00:00:00 Completed [facility] Influenza Virus Vaccine 2012-09-03 00:00:00 Completed [facility] Influenza Virus Vaccine 2012-09-03 00:00:00 Completed [facility] Influenza Virus Vaccine 2012-09-03 00:00:00 Completed [facility] Influenza Virus Vaccine 2012-09-03 00:00:00 Completed [facility] Influenza Virus Vaccine 2012-09-03 00:00:00 Completed [facility] Influenza Virus Vaccine 2012-09-03 00:00:00 Completed [facility] Influenza Virus Vaccine 2012-09-03 00:00:00 Completed [facility] Influenza Virus Vaccine 2012-09-03 00:00:00 Completed [facility] Influenza Virus Vaccine 2012-09-03 00:00:00 Completed [facility] Influenza Virus Vaccine 2012-09-03 00:00:00 Completed [facility] Influenza Virus Vaccine 2012-09-03 00:00:00 Completed [facility] Influenza Virus Vaccine 2012-09-03 00:00:00 Completed [facility] Influenza Virus Vaccine 2012-09-03 00:00:00 Completed [facility] Influenza Virus Vaccine 2012-09-03 00:00:00 Completed [facility] Influenza Virus Vaccine 2012-09-03 00:00:00 Completed [facility] Influenza Virus Vaccine 2012-09-03 00:00:00 Completed [facility] Influenza Virus Vaccine 2012-09-03 00:00:00 Completed [facility] Influenza Virus Vaccine 2012-09-03 00:00:00 Completed [facility] Influenza Virus Vaccine 2012-09-03 00:00:00 Completed [facility] Influenza Virus Vaccine 2012-09-03 00:00:00 Completed [facility] Influenza Virus Vaccine 2012-09-03 00:00:00 Completed [facility] Influenza Virus Vaccine 2012-09-03 00:00:00 Completed [facility] Influenza Virus Vaccine 2012-09-03 00:00:00 Completed [facility] Influenza Virus Vaccine 2012-09-03 00:00:00 Completed [facility] Influenza Virus Vaccine 2012-09-03 00:00:00 Completed [facility] Influenza Virus Vaccine 2012-09-03 00:00:00 Completed [facility] Influenza Virus Vaccine 2012-09-03 00:00:00 Completed [facility] Influenza Virus Vaccine 2012-09-03 00:00:00 Completed [facility] Influenza Virus Vaccine 2012-09-03 00:00:00 Completed [facility] Influenza Virus Vaccine 2012-09-03 00:00:00 Completed [facility] Influenza Virus Vaccine 2012-09-03 00:00:00 Completed [facility] Influenza Virus Vaccine 2012-09-03 00:00:00 Completed [facility] Influenza Virus Vaccine 2012-09-03 00:00:00 Completed [facility] Influenza Virus Vaccine 2012-09-03 00:00:00 Completed [facility] Influenza Virus Vaccine 2012-09-03 00:00:00 Completed [facility] Influenza Virus Vaccine 2012-09-03 00:00:00 Completed [facility] Influenza Virus Vaccine 2012-09-03 00:00:00 Completed [facility] Influenza Virus Vaccine 2012-09-03 00:00:00 Completed [facility] Influenza Virus Vaccine 2012-09-03 00:00:00 Completed [facility] Influenza Virus Vaccine 2012-09-03 00:00:00 Completed [facility] Influenza Virus Vaccine 2012-09-03 00:00:00 Completed [facility] Influenza Virus Vaccine 2012-09-03 00:00:00 Completed [facility] Influenza Virus Vaccine 2012-09-03 00:00:00 Completed [facility] Influenza Virus Vaccine 2012-09-03 00:00:00 Completed [facility] Influenza Virus Vaccine 2012-09-03 00:00:00 Completed [facility] Influenza Virus Vaccine 2012-09-03 00:00:00 Completed [facility] Influenza Virus Vaccine 2012-09-03 00:00:00 Completed [facility] Influenza Virus Vaccine 2012-09-03 00:00:00 Completed [facility] Influenza Virus Vaccine 2012-09-03 00:00:00 Completed [facility] Influenza Virus Vaccine 2012-09-03 00:00:00 Completed [facility] Influenza Virus Vaccine 2012-09-03 00:00:00 Completed [facility] Influenza Virus Vaccine 2012-09-03 00:00:00 Completed [facility] Influenza Virus Vaccine 2012-09-03 00:00:00 Completed [facility] Influenza Virus Vaccine 2012-09-03 00:00:00 Completed [facility] Influenza Virus Vaccine 2012-09-03 00:00:00 Completed [facility] Influenza Virus Vaccine 2012-09-03 00:00:00 Completed [facility] Influenza Virus Vaccine 2012-09-03 00:00:00 Completed [facility] Influenza Virus Vaccine 2012-09-03 00:00:00 Completed [facility] Influenza Virus Vaccine 2012-09-03 00:00:00 Completed [facility] Influenza Virus Vaccine 2012-09-03 00:00:00 Completed [facility] Influenza Virus Vaccine 2012-09-03 00:00:00 Completed [facility] Influenza Virus Vaccine 2012-09-03 00:00:00 Completed [facility] Influenza Virus Vaccine 2012-09-03 00:00:00 Completed [facility] Influenza Virus Vaccine 2012-09-03 00:00:00 Completed [facility] Influenza Virus Vaccine 2012-09-03 00:00:00 Completed [facility] Influenza Virus Vaccine 2012-09-03 00:00:00 Completed [facility] Influenza Virus Vaccine 2012-09-03 00:00:00 Completed [facility] Influenza Virus Vaccine 2012-09-03 00:00:00 Completed [facility] Influenza Virus Vaccine 2012-09-03 00:00:00 Completed [facility] Influenza Virus Vaccine 2012-09-03 00:00:00 Completed [facility] Influenza Virus Vaccine 2012-09-03 00:00:00 Completed [facility] Influenza Virus Vaccine 2012-09-03 00:00:00 Completed [facility] Influenza Virus Vaccine 2012-09-03 00:00:00 Completed [facility] Influenza Virus Vaccine 2012-09-03 00:00:00 Completed [facility] Influenza Virus Vaccine 2012-09-03 00:00:00 Completed [facility] Influenza Virus Vaccine 2012-09-03 00:00:00 Completed [facility] Influenza Virus Vaccine 2012-09-03 00:00:00 Completed [facility] Influenza Virus Vaccine 2012-09-03 00:00:00 Completed [facility] Influenza Virus Vaccine 2012-09-03 00:00:00 Completed [facility] Influenza Virus Vaccine 2012-09-03 00:00:00 Completed [facility] Influenza Virus Vaccine 2012-09-03 00:00:00 Completed [facility] Influenza Virus Vaccine 2012-09-03 00:00:00 Completed [facility] Influenza Virus Vaccine 2012-09-03 00:00:00 Completed [facility] Influenza Virus Vaccine 2012-09-03 00:00:00 Completed [facility] Influenza Virus Vaccine 2012-09-03 00:00:00 Completed [facility] Influenza Virus Vaccine 2012-09-03 00:00:00 Completed [facility] Influenza Virus Vaccine 2012-09-03 00:00:00 Completed [facility] Influenza Virus Vaccine 2012-09-03 00:00:00 Completed [facility] Influenza Virus Vaccine 2012-09-03 00:00:00 Completed [facility] Influenza Virus Vaccine 2012-09-03 00:00:00 Completed [facility] Influenza Virus Vaccine 2012-09-03 00:00:00 Completed [facility] Influenza Virus Vaccine 2012-09-03 00:00:00 Completed [facility] Influenza Virus Vaccine 2012-09-03 00:00:00 Completed [facility] Influenza Virus Vaccine 2012-09-03 00:00:00 Completed [facility] Influenza Virus Vaccine 2012-09-03 00:00:00 Completed [facility] Influenza Virus Vaccine 2012-09-03 00:00:00 Completed [facility] Influenza Virus Vaccine 2012-09-03 00:00:00 Completed [facility] Influenza Virus Vaccine 2012-09-03 00:00:00 Completed [facility] Influenza Virus Vaccine 2012-09-03 00:00:00 Completed [facility] Influenza Virus Vaccine 2012-09-03 00:00:00 Completed [facility] Influenza Virus Vaccine 2012-09-03 00:00:00 Completed [facility] Influenza Virus Vaccine 2012-09-03 00:00:00 Completed [facility] Influenza Virus Vaccine 2012-09-03 00:00:00 Completed [facility] Influenza Virus Vaccine 2012-09-03 00:00:00 Completed [facility] Influenza Virus Vaccine 2012-09-03 00:00:00 Completed [facility] Influenza Virus Vaccine 2012-09-03 00:00:00 Completed [facility] Influenza Virus Vaccine 2012-09-03 00:00:00 Completed [facility] Influenza Virus Vaccine 2012-09-03 00:00:00 Completed [facility] Influenza Virus Vaccine 2011-09-19 00:00:00 Completed [facility] Influenza Virus Vaccine 2011-09-19 00:00:00 Completed [facility] Influenza Virus Vaccine 2011-09-19 00:00:00 Completed [facility] Influenza Virus Vaccine 2011-09-19 00:00:00 Completed [facility] Influenza Virus Vaccine 2011-09-19 00:00:00 Completed [facility] Influenza Virus Vaccine 2011-09-19 00:00:00 Completed [facility] Influenza Virus Vaccine 2011-09-19 00:00:00 Completed [facility] Influenza Virus Vaccine 2011-09-19 00:00:00 Completed [facility] Influenza Virus Vaccine 2011-09-19 00:00:00 Completed [facility] Influenza Virus Vaccine 2011-09-19 00:00:00 Completed [facility] Influenza Virus Vaccine 2011-09-19 00:00:00 Completed [facility] Influenza Virus Vaccine 2011-09-19 00:00:00 Completed [facility] Influenza Virus Vaccine 2011-09-19 00:00:00 Completed [facility] Influenza Virus Vaccine 2011-09-19 00:00:00 Completed [facility] Influenza Virus Vaccine 2011-09-19 00:00:00 Completed [facility] Influenza Virus Vaccine 2011-09-19 00:00:00 Completed [facility] Influenza Virus Vaccine 2011-09-19 00:00:00 Completed [facility] Influenza Virus Vaccine 2011-09-19 00:00:00 Completed [facility] Influenza Virus Vaccine 2011-09-19 00:00:00 Completed [facility] Influenza Virus Vaccine 2011-09-19 00:00:00 Completed [facility] Influenza Virus Vaccine 2011-09-19 00:00:00 Completed [facility] Influenza Virus Vaccine 2011-09-19 00:00:00 Completed [facility] Influenza Virus Vaccine 2011-09-19 00:00:00 Completed [facility] Influenza Virus Vaccine 2011-09-19 00:00:00 Completed [facility] Influenza Virus Vaccine 2011-09-19 00:00:00 Completed [facility] Influenza Virus Vaccine 2011-09-19 00:00:00 Completed [facility] Influenza Virus Vaccine 2011-09-19 00:00:00 Completed [facility] Influenza Virus Vaccine 2011-09-19 00:00:00 Completed [facility] Influenza Virus Vaccine 2011-09-19 00:00:00 Completed [facility] Influenza Virus Vaccine 2011-09-19 00:00:00 Completed [facility] Influenza Virus Vaccine 2011-09-19 00:00:00 Completed [facility] Influenza Virus Vaccine 2011-09-19 00:00:00 Completed [facility] Influenza Virus Vaccine 2011-09-19 00:00:00 Completed [facility] Influenza Virus Vaccine 2011-09-19 00:00:00 Completed [facility] Influenza Virus Vaccine 2011-09-19 00:00:00 Completed [facility] Influenza Virus Vaccine 2011-09-19 00:00:00 Completed [facility] Influenza Virus Vaccine 2011-09-19 00:00:00 Completed [facility] Influenza Virus Vaccine 2011-09-19 00:00:00 Completed [facility] Influenza Virus Vaccine 2011-09-19 00:00:00 Completed [facility] Influenza Virus Vaccine 2011-09-19 00:00:00 Completed [facility] Influenza Virus Vaccine 2011-09-19 00:00:00 Completed [facility] Influenza Virus Vaccine 2011-09-19 00:00:00 Completed [facility] Influenza Virus Vaccine 2011-09-19 00:00:00 Completed [facility] Influenza Virus Vaccine 2011-09-19 00:00:00 Completed [facility] Influenza Virus Vaccine 2011-09-19 00:00:00 Completed [facility] Influenza Virus Vaccine 2011-09-19 00:00:00 Completed [facility] Influenza Virus Vaccine 2011-09-19 00:00:00 Completed [facility] Influenza Virus Vaccine 2011-09-19 00:00:00 Completed [facility] Influenza Virus Vaccine 2011-09-19 00:00:00 Completed [facility] Influenza Virus Vaccine 2011-09-19 00:00:00 Completed [facility] Influenza Virus Vaccine 2011-09-19 00:00:00 Completed [facility] Influenza Virus Vaccine 2011-09-19 00:00:00 Completed [facility] Influenza Virus Vaccine 2011-09-19 00:00:00 Completed [facility] Influenza Virus Vaccine 2011-09-19 00:00:00 Completed [facility] Influenza Virus Vaccine 2011-09-19 00:00:00 Completed [facility] Influenza Virus Vaccine 2011-09-19 00:00:00 Completed [facility] Influenza Virus Vaccine 2011-09-19 00:00:00 Completed [facility] Influenza Virus Vaccine 2011-09-19 00:00:00 Completed [facility] Influenza Virus Vaccine 2011-09-19 00:00:00 Completed [facility] Influenza Virus Vaccine 2011-09-19 00:00:00 Completed [facility] Influenza Virus Vaccine 2011-09-19 00:00:00 Completed [facility] Influenza Virus Vaccine 2011-09-19 00:00:00 Completed [facility] Influenza Virus Vaccine 2011-09-19 00:00:00 Completed [facility] Influenza Virus Vaccine 2011-09-19 00:00:00 Completed [facility] Influenza Virus Vaccine 2011-09-19 00:00:00 Completed [facility] Influenza Virus Vaccine 2011-09-19 00:00:00 Completed [facility] Influenza Virus Vaccine 2011-09-19 00:00:00 Completed [facility] Influenza Virus Vaccine 2011-09-19 00:00:00 Completed [facility] Influenza Virus Vaccine 2011-09-19 00:00:00 Completed [facility] Influenza Virus Vaccine 2011-09-19 00:00:00 Completed [facility] Influenza Virus Vaccine 2011-09-19 00:00:00 Completed [facility] Influenza Virus Vaccine 2011-09-19 00:00:00 Completed [facility] Influenza Virus Vaccine 2011-09-19 00:00:00 Completed [facility] Influenza Virus Vaccine 2011-09-19 00:00:00 Completed [facility] Influenza Virus Vaccine 2011-09-19 00:00:00 Completed [facility] Influenza Virus Vaccine 2011-09-19 00:00:00 Completed [facility] Influenza Virus Vaccine 2011-09-19 00:00:00 Completed [facility] Influenza Virus Vaccine 2011-09-19 00:00:00 Completed [facility] Influenza Virus Vaccine 2011-09-19 00:00:00 Completed [facility] Influenza Virus Vaccine 2011-09-19 00:00:00 Completed [facility] Influenza Virus Vaccine 2011-09-19 00:00:00 Completed [facility] Influenza Virus Vaccine 2011-09-19 00:00:00 Completed [facility] Influenza Virus Vaccine 2011-09-19 00:00:00 Completed [facility] Influenza Virus Vaccine 2011-09-19 00:00:00 Completed [facility] Influenza Virus Vaccine 2011-09-19 00:00:00 Completed [facility] Influenza Virus Vaccine 2011-09-19 00:00:00 Completed [facility] Influenza Virus Vaccine 2011-09-19 00:00:00 Completed [facility] Influenza Virus Vaccine 2011-09-19 00:00:00 Completed [facility] Influenza Virus Vaccine 2011-09-19 00:00:00 Completed [facility] Influenza Virus Vaccine 2011-09-19 00:00:00 Completed [facility] Influenza Virus Vaccine 2011-09-19 00:00:00 Completed [facility] Influenza Virus Vaccine 2011-09-19 00:00:00 Completed [facility] Influenza Virus Vaccine 2011-09-19 00:00:00 Completed [facility] Influenza Virus Vaccine 2011-09-19 00:00:00 Completed [facility] Influenza Virus Vaccine 2011-09-19 00:00:00 Completed [facility] Influenza Virus Vaccine 2011-09-19 00:00:00 Completed [facility] Influenza Virus Vaccine 2011-09-19 00:00:00 Completed [facility] Influenza Virus Vaccine 2011-09-19 00:00:00 Completed [facility] Influenza Virus Vaccine 2011-09-19 00:00:00 Completed [facility] Influenza Virus Vaccine 2011-09-19 00:00:00 Completed [facility] Influenza Virus Vaccine 2011-09-19 00:00:00 Completed [facility] Influenza Virus Vaccine 2011-09-19 00:00:00 Completed [facility] Influenza Virus Vaccine 2011-09-19 00:00:00 Completed [facility] Influenza Virus Vaccine 2011-09-19 00:00:00 Completed [facility] Influenza Virus Vaccine 2011-09-19 00:00:00 Completed [facility] Influenza Virus Vaccine 2011-09-19 00:00:00 Completed [facility] Influenza Virus Vaccine 2011-09-19 00:00:00 Completed [facility] Influenza Virus Vaccine 2011-09-19 00:00:00 Completed [facility] Influenza Virus Vaccine 2010-10-25 00:00:00 Completed [facility] Influenza Virus Vaccine 2010-10-25 00:00:00 Completed [facility] Influenza Virus Vaccine 2010-10-25 00:00:00 Completed [facility] Influenza Virus Vaccine 2010-10-25 00:00:00 Completed [facility] Influenza Virus Vaccine 2010-10-25 00:00:00 Completed [facility] Influenza Virus Vaccine 2010-10-25 00:00:00 Completed [facility] Influenza Virus Vaccine 2010-10-25 00:00:00 Completed [facility] Influenza Virus Vaccine 2010-10-25 00:00:00 Completed [facility] Influenza Virus Vaccine 2010-10-25 00:00:00 Completed [facility] Influenza Virus Vaccine 2010-10-25 00:00:00 Completed [facility] Influenza Virus Vaccine 2010-10-25 00:00:00 Completed [facility] Influenza Virus Vaccine 2010-10-25 00:00:00 Completed [facility] Influenza Virus Vaccine 2010-10-25 00:00:00 Completed [facility] Influenza Virus Vaccine 2010-10-25 00:00:00 Completed [facility] Influenza Virus Vaccine 2010-10-25 00:00:00 Completed [facility] Influenza Virus Vaccine 2010-10-25 00:00:00 Completed [facility] Influenza Virus Vaccine 2010-10-25 00:00:00 Completed [facility] Influenza Virus Vaccine 2010-10-25 00:00:00 Completed [facility] Influenza Virus Vaccine 2010-10-25 00:00:00 Completed [facility] Influenza Virus Vaccine 2010-10-25 00:00:00 Completed [facility] Influenza Virus Vaccine 2010-10-25 00:00:00 Completed [facility] Influenza Virus Vaccine 2010-10-25 00:00:00 Completed [facility] Influenza Virus Vaccine 2010-10-25 00:00:00 Completed [facility] Influenza Virus Vaccine 2010-10-25 00:00:00 Completed [facility] Influenza Virus Vaccine 2010-10-25 00:00:00 Completed [facility] Influenza Virus Vaccine 2010-10-25 00:00:00 Completed [facility] Influenza Virus Vaccine 2010-10-25 00:00:00 Completed [facility] Influenza Virus Vaccine 2010-10-25 00:00:00 Completed [facility] Influenza Virus Vaccine 2010-10-25 00:00:00 Completed [facility] Influenza Virus Vaccine 2010-10-25 00:00:00 Completed [facility] Influenza Virus Vaccine 2010-10-25 00:00:00 Completed [facility] Influenza Virus Vaccine 2010-10-25 00:00:00 Completed [facility] Influenza Virus Vaccine 2010-10-25 00:00:00 Completed [facility] Influenza Virus Vaccine 2010-10-25 00:00:00 Completed [facility] Influenza Virus Vaccine 2010-10-25 00:00:00 Completed [facility] Influenza Virus Vaccine 2010-10-25 00:00:00 Completed [facility] Influenza Virus Vaccine 2010-10-25 00:00:00 Completed [facility] Influenza Virus Vaccine 2010-10-25 00:00:00 Completed [facility] Influenza Virus Vaccine 2010-10-25 00:00:00 Completed [facility] Influenza Virus Vaccine 2010-10-25 00:00:00 Completed [facility] Influenza Virus Vaccine 2010-10-25 00:00:00 Completed [facility] Influenza Virus Vaccine 2010-10-25 00:00:00 Completed [facility] Influenza Virus Vaccine 2010-10-25 00:00:00 Completed [facility] Influenza Virus Vaccine 2010-10-25 00:00:00 Completed [facility] Influenza Virus Vaccine 2010-10-25 00:00:00 Completed [facility] Influenza Virus Vaccine 2010-10-25 00:00:00 Completed [facility] Influenza Virus Vaccine 2010-10-25 00:00:00 Completed [facility] Influenza Virus Vaccine 2010-10-25 00:00:00 Completed [facility] Influenza Virus Vaccine 2010-10-25 00:00:00 Completed [facility] Influenza Virus Vaccine 2010-10-25 00:00:00 Completed [facility] Influenza Virus Vaccine 2010-10-25 00:00:00 Completed [facility] Influenza Virus Vaccine 2010-10-25 00:00:00 Completed [facility] Influenza Virus Vaccine 2010-10-25 00:00:00 Completed [facility] Influenza Virus Vaccine 2010-10-25 00:00:00 Completed [facility] Influenza Virus Vaccine 2010-10-25 00:00:00 Completed [facility] Influenza Virus Vaccine 2010-10-25 00:00:00 Completed [facility] Influenza Virus Vaccine 2010-10-25 00:00:00 Completed [facility] Influenza Virus Vaccine 2010-10-25 00:00:00 Completed [facility] Influenza Virus Vaccine 2010-10-25 00:00:00 Completed [facility] Influenza Virus Vaccine 2010-10-25 00:00:00 Completed [facility] Influenza Virus Vaccine 2010-10-25 00:00:00 Completed [facility] Influenza Virus Vaccine 2010-10-25 00:00:00 Completed [facility] Influenza Virus Vaccine 2010-10-25 00:00:00 Completed [facility] Influenza Virus Vaccine 2010-10-25 00:00:00 Completed [facility] Influenza Virus Vaccine 2010-10-25 00:00:00 Completed [facility] Influenza Virus Vaccine 2010-10-25 00:00:00 Completed [facility] Influenza Virus Vaccine 2010-10-25 00:00:00 Completed [facility] Influenza Virus Vaccine 2010-10-25 00:00:00 Completed [facility] Influenza Virus Vaccine 2010-10-25 00:00:00 Completed [facility] Influenza Virus Vaccine 2010-10-25 00:00:00 Completed [facility] Influenza Virus Vaccine 2010-10-25 00:00:00 Completed [facility] Influenza Virus Vaccine 2010-10-25 00:00:00 Completed [facility] Influenza Virus Vaccine 2010-10-25 00:00:00 Completed [facility] Influenza Virus Vaccine 2010-10-25 00:00:00 Completed [facility] Influenza Virus Vaccine 2010-10-25 00:00:00 Completed [facility] Influenza Virus Vaccine 2010-10-25 00:00:00 Completed [facility] Influenza Virus Vaccine 2010-10-25 00:00:00 Completed [facility] Influenza Virus Vaccine 2010-10-25 00:00:00 Completed [facility] Influenza Virus Vaccine 2010-10-25 00:00:00 Completed [facility] Influenza Virus Vaccine 2010-10-25 00:00:00 Completed [facility] Influenza Virus Vaccine 2010-10-25 00:00:00 Completed [facility] Influenza Virus Vaccine 2010-10-25 00:00:00 Completed [facility] Influenza Virus Vaccine 2010-10-25 00:00:00 Completed [facility] Influenza Virus Vaccine 2010-10-25 00:00:00 Completed [facility] Influenza Virus Vaccine 2010-10-25 00:00:00 Completed [facility] Influenza Virus Vaccine 2010-10-25 00:00:00 Completed [facility] Influenza Virus Vaccine 2010-10-25 00:00:00 Completed [facility] Influenza Virus Vaccine 2010-10-25 00:00:00 Completed [facility] Influenza Virus Vaccine 2010-10-25 00:00:00 Completed [facility] Influenza Virus Vaccine 2010-10-25 00:00:00 Completed [facility] Influenza Virus Vaccine 2010-10-25 00:00:00 Completed [facility] Influenza Virus Vaccine 2010-10-25 00:00:00 Completed [facility] Influenza Virus Vaccine 2010-10-25 00:00:00 Completed [facility] Influenza Virus Vaccine 2010-10-25 00:00:00 Completed [facility] Influenza Virus Vaccine 2010-10-25 00:00:00 Completed [facility] Influenza Virus Vaccine 2010-10-25 00:00:00 Completed [facility] Influenza Virus Vaccine 2010-10-25 00:00:00 Completed [facility] Influenza Virus Vaccine 2010-10-25 00:00:00 Completed [facility] Influenza Virus Vaccine 2010-10-25 00:00:00 Completed [facility] Influenza Virus Vaccine 2010-10-25 00:00:00 Completed [facility] Influenza Virus Vaccine 2010-10-25 00:00:00 Completed [facility] Influenza Virus Vaccine 2010-10-25 00:00:00 Completed [facility] Influenza Virus Vaccine 2010-10-25 00:00:00 Completed [facility] Influenza Virus Vaccine 2010-10-25 00:00:00 Completed [facility] Influenza Virus Vaccine 2010-10-25 00:00:00 Completed [facility] Influenza Virus Vaccine 2010-10-25 00:00:00 Completed [facility] Influenza Virus Vaccine 2010-10-25 00:00:00 Completed [facility] Influenza Virus Vaccine 2010-10-25 00:00:00 Completed [facility] Hep B, Adol or Pedi Dosage 2010-03-07 00:00:00 Completed [facility] Hep B, Adol or Pedi Dosage 2010-03-07 00:00:00 Completed [facility] Hep B, Adol or Pedi Dosage 2010-03-07 00:00:00 Completed [facility] Hep B, Adol or Pedi Dosage 2010-03-07 00:00:00 Completed [facility] Hep B, Adol or Pedi Dosage 2010-03-07 00:00:00 Completed [facility] Hep B, Adol or Pedi Dosage 2010-03-07 00:00:00 Completed [facility] Hep B, Adol or Pedi Dosage 2010-03-07 00:00:00 Completed [facility] Hep B, Adol or Pedi Dosage 2010-03-07 00:00:00 Completed [facility] Hep B, Adol or Pedi Dosage 2010-03-07 00:00:00 Completed [facility] Hep B, Adol or Pedi Dosage 2010-03-07 00:00:00 Completed [facility] Hep B, Adol or Pedi Dosage 2010-03-07 00:00:00 Completed [facility] Hep B, Adol or Pedi Dosage 2010-03-07 00:00:00 Completed [facility] Hep B, Adol or Pedi Dosage 2010-03-07 00:00:00 Completed [facility] Hep B, Adol or Pedi Dosage 2010-03-07 00:00:00 Completed [facility] Hep B, Adol or Pedi Dosage 2010-03-07 00:00:00 Completed [facility] Hep B, Adol or Pedi Dosage 2010-03-07 00:00:00 Completed [facility] Hep B, Adol or Pedi Dosage 2010-03-07 00:00:00 Completed [facility] Hep B, Adol or Pedi Dosage 2010-03-07 00:00:00 Completed [facility] Hep B, Adol or Pedi Dosage 2010-03-07 00:00:00 Completed [facility] Hep B, Adol or Pedi Dosage 2010-03-07 00:00:00 Completed [facility] Hep B, Adol or Pedi Dosage 2010-03-07 00:00:00 Completed [facility] Hep B, Adol or Pedi Dosage 2010-03-07 00:00:00 Completed [facility] Hep B, Adol or Pedi Dosage 2010-03-07 00:00:00 Completed [facility] Hep B, Adol or Pedi Dosage 2010-03-07 00:00:00 Completed [facility] Hep B, Adol or Pedi Dosage 2010-03-07 00:00:00 Completed [facility] Hep B, Adol or Pedi Dosage 2010-03-07 00:00:00 Completed [facility] Hep B, Adol or Pedi Dosage 2010-03-07 00:00:00 Completed [facility] Hep B, Adol or Pedi Dosage 2010-03-07 00:00:00 Completed [facility] Hep B, Adol or Pedi Dosage 2010-03-07 00:00:00 Completed [facility] Hep B, Adol or Pedi Dosage 2010-03-07 00:00:00 Completed [facility] Hep B, Adol or Pedi Dosage 2010-03-07 00:00:00 Completed [facility] Hep B, Adol or Pedi Dosage 2010-03-07 00:00:00 Completed [facility] Hep B, Adol or Pedi Dosage 2010-03-07 00:00:00 Completed [facility] Hep B, Adol or Pedi Dosage 2010-03-07 00:00:00 Completed [facility] Hep B, Adol or Pedi Dosage 2010-03-07 00:00:00 Completed [facility] Hep B, Adol or Pedi Dosage 2010-03-07 00:00:00 Completed [facility] Hep B, Adol or Pedi Dosage 2010-03-07 00:00:00 Completed [facility] Hep B, Adol or Pedi Dosage 2010-03-07 00:00:00 Completed [facility] Hep B, Adol or Pedi Dosage 2010-03-07 00:00:00 Completed [facility] Hep B, Adol or Pedi Dosage 2010-03-07 00:00:00 Completed [facility] Hep B, Adol or Pedi Dosage 2010-03-07 00:00:00 Completed [facility] Hep B, Adol or Pedi Dosage 2010-03-07 00:00:00 Completed [facility] Hep B, Adol or Pedi Dosage 2010-03-07 00:00:00 Completed [facility] [facility] Hep B, Adol or Pedi Dosage 2010-03-07 00:00:00 Completed [facility] Hep B, Adol or Pedi Dosage 2010-03-07 00:00:00 Completed [facility] Hep B, Adol or Pedi Dosage 2010-03-07 00:00:00 Completed [facility] Hep B, Adol or Pedi Dosage 2010-03-07 00:00:00 Completed [facility] Hep B, Adol or Pedi Dosage 2010-03-07 00:00:00 Completed [facility] Hep B, Adol or Pedi Dosage 2010-03-07 00:00:00 Completed [facility] Hep B, Adol or Pedi Dosage 2010-03-07 00:00:00 Completed [facility] Hep B, Adol or Pedi Dosage 2010-03-07 00:00:00 Completed [facility] Hep B, Adol or Pedi Dosage 2010-03-07 00:00:00 Completed [facility] Hep B, Adol or Pedi Dosage 2010-03-07 00:00:00 Completed [facility] Hep B, Adol or Pedi Dosage 2010-03-07 00:00:00 Completed [facility] Hep B, Adol or Pedi Dosage 2010-03-07 00:00:00 Completed [facility] Hep B, Adol or Pedi Dosage 2010-03-07 00:00:00 Completed [facility] Hep B, Adol or Pedi Dosage 2010-03-07 00:00:00 Completed [facility] Hep B, Adol or Pedi Dosage 2010-03-07 00:00:00 Completed [facility] Hep B, Adol or Pedi Dosage 2010-03-07 00:00:00 Completed [facility] Hep B, Adol or Pedi Dosage 2010-03-07 00:00:00 Completed [facility] Hep B, Adol or Pedi Dosage 2010-03-07 00:00:00 Completed [facility] Hep B, Adol or Pedi Dosage 2010-03-07 00:00:00 Completed [facility] Hep B, Adol or Pedi Dosage 2010-03-07 00:00:00 Completed [facility] Hep B, Adol or Pedi Dosage 2010-03-07 00:00:00 Completed [facility] Hep B, Adol or Pedi Dosage 2010-03-07 00:00:00 Completed [facility] Hep B, Adol or Pedi Dosage 2010-03-07 00:00:00 Completed [facility] Hep B, Adol or Pedi Dosage 2010-03-07 00:00:00 Completed [facility] Hep B, Adol or Pedi Dosage 2010-03-07 00:00:00 Completed [facility] Hep B, Adol or Pedi Dosage 2010-03-07 00:00:00 Completed [facility] Hep B, Adol or Pedi Dosage 2010-03-07 00:00:00 Completed [facility] Hep B, Adol or Pedi Dosage 2010-03-07 00:00:00 Completed [facility] Hep B, Adol or Pedi Dosage 2010-03-07 00:00:00 Completed [facility] Hep B, Adol or Pedi Dosage 2010-03-07 00:00:00 Completed [facility] Hep B, Adol or Pedi Dosage 2010-03-07 00:00:00 Completed [facility] Hep B, Adol or Pedi Dosage 2010-03-07 00:00:00 Completed [facility] Hep B, Adol or Pedi Dosage 2010-03-07 00:00:00 Completed [facility] Hep B, Adol or Pedi Dosage 2010-03-07 00:00:00 Completed [facility] Hep B, Adol or Pedi Dosage 2010-03-07 00:00:00 Completed [facility] Hep B, Adol or Pedi Dosage 2010-03-07 00:00:00 Completed [facility] Hep B, Adol or Pedi Dosage 2010-03-07 00:00:00 Completed [facility] Hep B, Adol or Pedi Dosage 2010-03-07 00:00:00 Completed [facility] Hep B, Adol or Pedi Dosage 2010-03-07 00:00:00 Completed [facility] Hep B, Adol or Pedi Dosage 2010-03-07 00:00:00 Completed [facility] Hep B, Adol or Pedi Dosage 2010-03-07 00:00:00 Completed [facility] Hep B, Adol or Pedi Dosage 2010-03-07 00:00:00 Completed [facility] Hep B, Adol or Pedi Dosage 2010-03-07 00:00:00 Completed [facility] Hep B, Adol or Pedi Dosage 2010-03-07 00:00:00 Completed [facility] Hep B, Adol or Pedi Dosage 2010-03-07 00:00:00 Completed [facility] Hep B, Adol or Pedi Dosage 2010-03-07 00:00:00 Completed [facility] Hep B, Adol or Pedi Dosage 2010-03-07 00:00:00 Completed [facility] Hep B, Adol or Pedi Dosage 2010-03-07 00:00:00 Completed [facility] Hep B, Adol or Pedi Dosage 2010-03-07 00:00:00 Completed [facility] Hep B, Adol or Pedi Dosage 2010-03-07 00:00:00 Completed [facility] Hep B, Adol or Pedi Dosage 2010-03-07 00:00:00 Completed [facility] Hep B, Adol or Pedi Dosage 2010-03-07 00:00:00 Completed [facility] Hep B, Adol or Pedi Dosage 2010-03-07 00:00:00 Completed [facility] Hep B, Adol or Pedi Dosage 2010-03-07 00:00:00 Completed [facility] Hep B, Adol or Pedi Dosage 2010-03-07 00:00:00 Completed [facility] Hep B, Adol or Pedi Dosage 2010-03-07 00:00:00 Completed [facility] Hep B, Adol or Pedi Dosage 2010-03-07 00:00:00 Completed [facility] Hep B, Adol or Pedi Dosage 2010-03-07 00:00:00 Completed [facility] Hep B, Adol or Pedi Dosage 2010-03-07 00:00:00 Completed [facility] Hep B, Adol or Pedi Dosage 2010-03-07 00:00:00 Completed [facility] Hep B, Adol or Pedi Dosage 2010-03-07 00:00:00 Completed [facility] Hep B, Adol or Pedi Dosage 2010-03-07 00:00:00 Completed [facility] Hep B, Adol or Pedi Dosage 2010-03-07 00:00:00 Completed [facility] Hep B, Adol or Pedi Dosage 2010-03-07 00:00:00 Completed [facility] Hep B, Adol or Pedi Dosage 2010-03-07 00:00:00 Completed [facility] H1n1 Vaccine 2009-11-01 00:00:00 Completed [facility] H1n1 Vaccine 2009-11-01 00:00:00 Completed [facility] H1n1 Vaccine 2009-11-01 00:00:00 Completed [facility] H1n1 Vaccine 2009-11-01 00:00:00 Completed [facility] H1n1 Vaccine 2009-11-01 00:00:00 Completed [facility] H1n1 Vaccine 2009-11-01 00:00:00 Completed [facility] H1n1 Vaccine 2009-11-01 00:00:00 Completed [facility] H1n1 Vaccine 2009-11-01 00:00:00 Completed [facility] H1n1 Vaccine 2009-11-01 00:00:00 Completed [facility] H1n1 Vaccine 2009-11-01 00:00:00 Completed [facility] H1n1 Vaccine 2009-11-01 00:00:00 Completed [facility] H1n1 Vaccine 2009-11-01 00:00:00 Completed [facility] H1n1 Vaccine 2009-11-01 00:00:00 Completed [facility] H1n1 Vaccine 2009-11-01 00:00:00 Completed [facility] H1n1 Vaccine 2009-11-01 00:00:00 Completed [facility] H1n1 Vaccine 2009-11-01 00:00:00 Completed [facility] H1n1 Vaccine 2009-11-01 00:00:00 Completed [facility] H1n1 Vaccine 2009-11-01 00:00:00 Completed [facility] H1n1 Vaccine 2009-11-01 00:00:00 Completed [facility] H1n1 Vaccine 2009-11-01 00:00:00 Completed [facility] H1n1 Vaccine 2009-11-01 00:00:00 Completed [facility] H1n1 Vaccine 2009-11-01 00:00:00 Completed [facility] H1n1 Vaccine 2009-11-01 00:00:00 [facility]pleted [facility] H1n1 Vaccine 2009-11-01 00:00:00 Completed [facility] H1n1 Vaccine 2009-11-01 00:00:00 Completed [facility] H1n1 Vaccine 2009-11-01 00:00:00 Completed [facility] H1n1 Vaccine 2009-11-01 00:00:00 Completed [facility] H1n1 Vaccine 2009-11-01 00:00:00 Completed [facility] H1n1 Vaccine 2009-11-01 00:00:00 Completed [facility] H1n1 Vaccine 2009-11-01 00:00:00 Completed [facility] H1n1 Vaccine 2009-11-01 00:00:00 Completed [facility] H1n1 Vaccine 2009-11-01 00:00:00 Completed [facility] H1n1 Vaccine 2009-11-01 00:00:00 Completed [facility] H1n1 Vaccine 2009-11-01 00:00:00 Completed [facility] H1n1 Vaccine 2009-11-01 00:00:00 Completed [facility] H1n1 Vaccine 2009-11-01 00:00:00 Completed [facility] H1n1 Vaccine 2009-11-01 00:00:00 Completed [facility] H1n1 Vaccine 2009-11-01 00:00:00 Completed [facility] H1n1 Vaccine 2009-11-01 00:00:00 Completed [facility] H1n1 Vaccine 2009-11-01 00:00:00 Completed [facility] H1n1 Vaccine 2009-11-01 00:00:00 Completed [facility] H1n1 Vaccine 2009-11-01 00:00:00 Completed [facility] H1n1 Vaccine 2009-11-01 00:00:00 Completed [facility] H1n1 Vaccine 2009-11-01 00:00:00 Completed [facility] H1n1 Vaccine 2009-11-01 00:00:00 Completed [facility] H1n1 Vaccine 2009-11-01 00:00:00 Completed [facility] H1n1 Vaccine 2009-11-01 00:00:00 Completed [facility] H1n1 Vaccine 2009-11-01 00:00:00 Completed [facility] H1n1 Vaccine 2009-11-01 00:00:00 Completed [facility] H1n1 Vaccine 2009-11-01 00:00:00 Completed [facility] H1n1 Vaccine 2009-11-01 00:00:00 Completed [facility] H1n1 Vaccine 2009-11-01 00:00:00 Completed [facility] H1n1 Vaccine 2009-11-01 00:00:00 Completed [facility] H1n1 Vaccine 2009-11-01 00:00:00 Completed [facility] H1n1 Vaccine 2009-11-01 00:00:00 Completed [facility] H1n1 Vaccine 2009-11-01 00:00:00 Completed [facility] H1n1 Vaccine 2009-11-01 00:00:00 Completed [facility] H1n1 Vaccine 2009-11-01 00:00:00 Completed [facility] H1n1 Vaccine 2009-11-01 00:00:00 Completed [facility] H1n1 Vaccine 2009-11-01 00:00:00 Completed [facility] H1n1 Vaccine 2009-11-01 00:00:00 Completed [facility] H1n1 Vaccine 2009-11-01 00:00:00 Completed [facility] H1n1 Vaccine 2009-11-01 00:00:00 Completed [facility] H1n1 Vaccine 2009-11-01 00:00:00 Completed [facility] H1n1 Vaccine 2009-11-01 00:00:00 Completed [facility] H1n1 Vaccine 2009-11-01 00:00:00 Completed [facility] H1n1 Vaccine 2009-11-01 00:00:00 Completed [facility] H1n1 Vaccine 2009-11-01 00:00:00 Completed [facility] H1n1 Vaccine 2009-11-01 00:00:00 Completed [facility] H1n1 Vaccine 2009-11-01 00:00:00 Completed [facility] H1n1 Vaccine 2009-11-01 00:00:00 Completed [facility] H1n1 Vaccine 2009-11-01 00:00:00 Completed [facility] H1n1 Vaccine 2009-11-01 00:00:00 Completed [facility] H1n1 Vaccine 2009-11-01 00:00:00 Completed [facility] H1n1 Vaccine 2009-11-01 00:00:00 Completed [facility] H1n1 Vaccine 2009-11-01 00:00:00 Completed [facility] H1n1 Vaccine 2009-11-01 00:00:00 Completed [facility] H1n1 Vaccine 2009-11-01 00:00:00 Completed [facility] H1n1 Vaccine 2009-11-01 00:00:00 Completed [facility] H1n1 Vaccine 2009-11-01 00:00:00 Completed [facility] H1n1 Vaccine 2009-11-01 00:00:00 Completed [facility] H1n1 Vaccine 2009-11-01 00:00:00 Completed [facility] H1n1 Vaccine 2009-11-01 00:00:00 Completed [facility] H1n1 Vaccine 2009-11-01 00:00:00 Completed [facility] H1n1 Vaccine 2009-11-01 00:00:00 Completed [facility] H1n1 Vaccine 2009-11-01 00:00:00 Completed [facility] H1n1 Vaccine 2009-11-01 00:00:00 Completed [facility] H1n1 Vaccine 2009-11-01 00:00:00 Completed [facility] H1n1 Vaccine 2009-11-01 00:00:00 Completed [facility] H1n1 Vaccine 2009-11-01 00:00:00 Completed [facility] H1n1 Vaccine 2009-11-01 00:00:00 Completed [facility] H1n1 Vaccine 2009-11-01 00:00:00 Completed [facility] H1n1 Vaccine 2009-11-01 00:00:00 Completed [facility] H1n1 Vaccine 2009-11-01 00:00:00 Completed [facility] H1n1 Vaccine 2009-11-01 00:00:00 Completed [facility] H1n1 Vaccine 2009-11-01 00:00:00 Completed [facility] H1n1 Vaccine 2009-11-01 00:00:00 Completed [facility] H1n1 Vaccine 2009-11-01 00:00:00 Completed [facility] H1n1 Vaccine 2009-11-01 00:00:00 Completed [facility] H1n1 Vaccine 2009-11-01 00:00:00 Completed [facility] H1n1 Vaccine 2009-11-01 00:00:00 Completed [facility] H1n1 Vaccine 2009-11-01 00:00:00 Completed [facility] H1n1 Vaccine 2009-11-01 00:00:00 Completed [facility] H1n1 Vaccine 2009-11-01 00:00:00 Completed [facility] H1n1 Vaccine 2009-11-01 00:00:00 Completed [facility] H1n1 Vaccine 2009-11-01 00:00:00 Completed [facility] H1n1 Vaccine 2009-11-01 00:00:00 Completed [facility] H1n1 Vaccine 2009-11-01 00:00:00 Completed [facility] Pneumococcal Polysaccharide, PPSV23 (PNEUMOVAX) 2009-10-04 00:00:00 Completed [facility] Pneumococcal Polysaccharide, PPSV23 (PNEUMOVAX) 2009-10-04 00:00:00 Completed [facility] Pneumococcal Polysaccharide, PPSV23 (PNEUMOVAX) 2009-10-04 00:00:00 Completed [facility] Pneumococcal Polysaccharide, PPSV23 (PNEUMOVAX) 2009-10-04 00:00:00 Completed [facility] Pneumococcal Polysaccharide, PPSV23 (PNEUMOVAX) 2009-10-04 00:00:00 Completed [facility] Pneumococcal Polysaccharide, PPSV23 (PNEUMOVAX) 2009-10-04 00:00:00 Completed [facility] Pneumococcal Polysaccharide, PPSV23 (PNEUMOVAX) 2009-10-04 00:00:00 Completed [facility] Pneumococcal Polysaccharide, PPSV23 (PNEUMOVAX) 2009-10-04 00:00:00 Completed [facility] Pneumococcal Polysaccharide, PPSV23 (PNEUMOVAX) 2009-10-04 00:00:00 Completed [facility] Pneumococcal Polysaccharide, PPSV23 (PNEUMOVAX) 2009-10-04 00:00:00 Completed [facility] Pneumococcal Polysaccharide, PPSV23 (PNEUMOVAX) 2009-10-04 00:00:00 Completed [facility] Pneumococcal Polysaccharide, PPSV23 (PNEUMOVAX) 2009-10-04 00:00:00 Completed [facility] Pneumococcal Polysaccharide, PPSV23 (PNEUMOVAX) 2009-10-04 00:00:00 Completed [facility] Pneumococcal Polysaccharide, PPSV23 (PNEUMOVAX) 2009-10-04 00:00:00 Completed [facility] Pneumococcal Polysaccharide, PPSV23 (PNEUMOVAX) 2009-10-04 00:00:00 Completed [facility] Pneumococcal Polysaccharide, PPSV23 (PNEUMOVAX) 2009-10-04 00:00:00 Completed [facility] Pneumococcal Polysaccharide, PPSV23 (PNEUMOVAX) 2009-10-04 00:00:00 Completed [facility] Pneumococcal Polysaccharide, PPSV23 (PNEUMOVAX) 2009-10-04 00:00:00 Completed [facility] Pneumococcal Polysaccharide, PPSV23 (PNEUMOVAX) 2009-10-04 00:00:00 Completed [facility] Pneumococcal Polysaccharide, PPSV23 (PNEUMOVAX) 2009-10-04 00:00:00 Completed [facility] Pneumococcal Polysaccharide, PPSV23 (PNEUMOVAX) 2009-10-04 00:00:00 Completed [facility] Pneumococcal Polysaccharide, PPSV23 (PNEUMOVAX) 2009-10-04 00:00:00 Completed [facility] Pneumococcal Polysaccharide, PPSV23 (PNEUMOVAX) 2009-10-04 00:00:00 Completed [facility] Pneumococcal Polysaccharide, PPSV23 (PNEUMOVAX) 2009-10-04 00:00:00 Completed [facility] Pneumococcal Polysaccharide, PPSV23 (PNEUMOVAX) 2009-10-04 00:00:00 Completed [facility] Pneumococcal Polysaccharide, PPSV23 (PNEUMOVAX) 2009-10-04 00:00:00 Completed [facility] Pneumococcal Polysaccharide, PPSV23 (PNEUMOVAX) 2009-10-04 00:00:00 Completed [facility] Pneumococcal Polysaccharide, PPSV23 (PNEUMOVAX) 2009-10-04 00:00:00 Completed [facility] Pneumococcal Polysaccharide, PPSV23 (PNEUMOVAX) 2009-10-04 00:00:00 Completed [facility] Pneumococcal Polysaccharide, PPSV23 (PNEUMOVAX) 2009-10-04 00:00:00 Completed [facility] Pneumococcal Polysaccharide, PPSV23 (PNEUMOVAX) 2009-10-04 00:00:00 Completed [facility] Pneumococcal Polysaccharide, PPSV23 (PNEUMOVAX) 2009-10-04 00:00:00 Completed [facility] Pneumococcal Polysaccharide, PPSV23 (PNEUMOVAX) 2009-10-04 00:00:00 Completed [facility] Pneumococcal Polysaccharide, PPSV23 (PNEUMOVAX) 2009-10-04 00:00:00 Completed [facility] Pneumococcal Polysaccharide, PPSV23 (PNEUMOVAX) 2009-10-04 00:00:00 Completed [facility] Pneumococcal Polysaccharide, PPSV23 (PNEUMOVAX) 2009-10-04 00:00:00 Completed [facility] Pneumococcal Polysaccharide, PPSV23 (PNEUMOVAX) 2009-10-04 00:00:00 Completed [facility] Pneumococcal Polysaccharide, PPSV23 (PNEUMOVAX) 2009-10-04 00:00:00 Completed [facility] Pneumococcal Polysaccharide, PPSV23 (PNEUMOVAX) 2009-10-04 00:00:00 Completed [facility] Pneumococcal Polysaccharide, PPSV23 (PNEUMOVAX) 2009-10-04 00:00:00 Completed [facility] Pneumococcal Polysaccharide, PPSV23 (PNEUMOVAX) 2009-10-04 00:00:00 Completed [facility] Pneumococcal Polysaccharide, PPSV23 (PNEUMOVAX) 2009-10-04 00:00:00 Completed [facility] Pneumococcal Polysaccharide, PPSV23 (PNEUMOVAX) 2009-10-04 00:00:00 Completed [facility] Pneumococcal Polysaccharide, PPSV23 (PNEUMOVAX) 2009-10-04 00:00:00 Completed [facility] Pneumococcal Polysaccharide, PPSV23 (PNEUMOVAX) 2009-10-04 00:00:00 Completed [facility] Pneumococcal Polysaccharide, PPSV23 (PNEUMOVAX) 2009-10-04 00:00:00 Completed [facility] Pneumococcal Polysaccharide, PPSV23 (PNEUMOVAX) 2009-10-04 00:00:00 Completed [facility] Pneumococcal Polysaccharide, PPSV23 (PNEUMOVAX) 2009-10-04 00:00:00 Completed [facility] Pneumococcal Polysaccharide, PPSV23 (PNEUMOVAX) 2009-10-04 00:00:00 Completed [facility] Pneumococcal Polysaccharide, PPSV23 (PNEUMOVAX) 2009-10-04 00:00:00 Completed [facility] Pneumococcal Polysaccharide, PPSV23 (PNEUMOVAX) 2009-10-04 00:00:00 Completed [facility] Pneumococcal Polysaccharide, PPSV23 (PNEUMOVAX) 2009-10-04 00:00:00 Completed [facility] Pneumococcal Polysaccharide, PPSV23 (PNEUMOVAX) 2009-10-04 00:00:00 Completed [facility] Pneumococcal Polysaccharide, PPSV23 (PNEUMOVAX) 2009-10-04 00:00:00 Completed [facility] Pneumococcal Polysaccharide, PPSV23 (PNEUMOVAX) 2009-10-04 00:00:00 Completed [facility] Pneumococcal Polysaccharide, PPSV23 (PNEUMOVAX) 2009-10-04 00:00:00 Completed [facility] Pneumococcal Polysaccharide, PPSV23 (PNEUMOVAX) 2009-10-04 00:00:00 Completed [facility] Pneumococcal Polysaccharide, PPSV23 (PNEUMOVAX) 2009-10-04 00:00:00 Completed [facility] Pneumococcal Polysaccharide, PPSV23 (PNEUMOVAX) 2009-10-04 00:00:00 Completed [facility] Pneumococcal Polysaccharide, PPSV23 (PNEUMOVAX) 2009-10-04 00:00:00 Completed [facility] Pneumococcal Polysaccharide, PPSV23 (PNEUMOVAX) 2009-10-04 00:00:00 Completed [facility] Pneumococcal Polysaccharide, PPSV23 (PNEUMOVAX) 2009-10-04 00:00:00 Completed [facility] Pneumococcal Polysaccharide, PPSV23 (PNEUMOVAX) 2009-10-04 00:00:00 Completed [facility] Pneumococcal Polysaccharide, PPSV23 (PNEUMOVAX) 2009-10-04 00:00:00 Completed [facility] Pneumococcal Polysaccharide, PPSV23 (PNEUMOVAX) 2009-10-04 00:00:00 Completed [facility] Pneumococcal Polysaccharide, PPSV23 (PNEUMOVAX) 2009-10-04 00:00:00 Completed [facility] Pneumococcal Polysaccharide, PPSV23 (PNEUMOVAX) 2009-10-04 00:00:00 Completed [facility] Pneumococcal Polysaccharide, PPSV23 (PNEUMOVAX) 2009-10-04 00:00:00 Completed [facility] Pneumococcal Polysaccharide, PPSV23 (PNEUMOVAX) 2009-10-04 00:00:00 Completed [facility] Pneumococcal Polysaccharide, PPSV23 (PNEUMOVAX) 2009-10-04 00:00:00 Completed [facility] Pneumococcal Polysaccharide, PPSV23 (PNEUMOVAX) 2009-10-04 00:00:00 Completed [facility] Pneumococcal Polysaccharide, PPSV23 (PNEUMOVAX) 2009-10-04 00:00:00 Completed [facility] Pneumococcal Polysaccharide, PPSV23 (PNEUMOVAX) 2009-10-04 00:00:00 Completed [facility] Pneumococcal Polysaccharide, PPSV23 (PNEUMOVAX) 2009-10-04 00:00:00 Completed [facility] Pneumococcal Polysaccharide, PPSV23 (PNEUMOVAX) 2009-10-04 00:00:00 Completed [facility] Pneumococcal Polysaccharide, PPSV23 (PNEUMOVAX) 2009-10-04 00:00:00 Completed [facility] Pneumococcal Polysaccharide, PPSV23 (PNEUMOVAX) 2009-10-04 00:00:00 Completed [facility] Pneumococcal Polysaccharide, PPSV23 (PNEUMOVAX) 2009-10-04 00:00:00 Completed [facility] Pneumococcal Polysaccharide, PPSV23 (PNEUMOVAX) 2009-10-04 00:00:00 Completed [facility] Pneumococcal Polysaccharide, PPSV23 (PNEUMOVAX) 2009-10-04 00:00:00 Completed [facility] Pneumococcal Polysaccharide, PPSV23 (PNEUMOVAX) 2009-10-04 00:00:00 Completed [facility] Pneumococcal Polysaccharide, PPSV23 (PNEUMOVAX) 2009-10-04 00:00:00 Completed [facility] Pneumococcal Polysaccharide, PPSV23 (PNEUMOVAX) 2009-10-04 00:00:00 Completed [facility] Pneumococcal Polysaccharide, PPSV23 (PNEUMOVAX) 2009-10-04 00:00:00 Completed [facility] Pneumococcal Polysaccharide, PPSV23 (PNEUMOVAX) 2009-10-04 00:00:00 Completed [facility] Pneumococcal Polysaccharide, PPSV23 (PNEUMOVAX) 2009-10-04 00:00:00 Completed [facility] Pneumococcal Polysaccharide, PPSV23 (PNEUMOVAX) 2009-10-04 00:00:00 Completed [facility] Pneumococcal Polysaccharide, PPSV23 (PNEUMOVAX) 2009-10-04 00:00:00 Completed [facility] Pneumococcal Polysaccharide, PPSV23 (PNEUMOVAX) 2009-10-04 00:00:00 Completed [facility] Pneumococcal Polysaccharide, PPSV23 (PNEUMOVAX) 2009-10-04 00:00:00 Completed [facility] Pneumococcal Polysaccharide, PPSV23 (PNEUMOVAX) 2009-10-04 00:00:00 Completed [facility] Pneumococcal Polysaccharide, PPSV23 (PNEUMOVAX) 2009-10-04 00:00:00 Completed [facility] Pneumococcal Polysaccharide, PPSV23 (PNEUMOVAX) 2009-10-04 00:00:00 Completed [facility] Pneumococcal Polysaccharide, PPSV23 (PNEUMOVAX) 2009-10-04 00:00:00 Completed [facility] Pneumococcal Polysaccharide, PPSV23 (PNEUMOVAX) 2009-10-04 00:00:00 Completed [facility] Pneumococcal Polysaccharide, PPSV23 (PNEUMOVAX) 2009-10-04 00:00:00 Completed [facility] Pneumococcal Polysaccharide, PPSV23 (PNEUMOVAX) 2009-10-04 00:00:00 Completed [facility] Pneumococcal Polysaccharide, PPSV23 (PNEUMOVAX) 2009-10-04 00:00:00 Completed [facility] Pneumococcal Polysaccharide, PPSV23 (PNEUMOVAX) 2009-10-04 00:00:00 Completed [facility] Pneumococcal Polysaccharide, PPSV23 (PNEUMOVAX) 2009-10-04 00:00:00 Completed [facility] Pneumococcal Polysaccharide, PPSV23 (PNEUMOVAX) 2009-10-04 00:00:00 Completed [facility] Pneumococcal Polysaccharide, PPSV23 (PNEUMOVAX) 2009-10-04 00:00:00 Completed [facility] Pneumococcal Polysaccharide, PPSV23 (PNEUMOVAX) 2009-10-04 00:00:00 Completed [facility] Pneumococcal Polysaccharide, PPSV23 (PNEUMOVAX) 2009-10-04 00:00:00 Completed [facility] Pneumococcal Polysaccharide, PPSV23 (PNEUMOVAX) 2009-10-04 00:00:00 Completed [facility] Pneumococcal Polysaccharide, PPSV23 (PNEUMOVAX) 2009-10-04 00:00:00 Completed [facility] Pneumococcal Polysaccharide, PPSV23 (PNEUMOVAX) 2009-10-04 00:00:00 Completed [facility] Pneumococcal Polysaccharide, PPSV23 (PNEUMOVAX) 2009-10-04 00:00:00 Completed [facility] Hep B, Adol or Pedi Dosage 2009-08-30 00:00:00 Completed [facility] Influenza Virus Vaccine 2009-08-30 00:00:00 Completed [facility] Hep B, Adol or Pedi Dosage 2009-08-30 00:00:00 Completed [facility] Influenza Virus Vaccine 2009-08-30 00:00:00 Completed [facility] Hep B, Adol or Pedi Dosage 2009-08-30 00:00:00 Completed [facility] Influenza Virus Vaccine 2009-08-30 00:00:00 Completed [facility] Hep B, Adol or Pedi Dosage 2009-08-30 00:00:00 Completed [facility] Influenza Virus Vaccine 2009-08-30 00:00:00 Completed [facility] Hep B, Adol or Pedi Dosage 2009-08-30 00:00:00 Completed [facility] Influenza Virus Vaccine 2009-08-30 00:00:00 Completed [facility] Hep B, Adol or Pedi Dosage 2009-08-30 00:00:00 Completed [facility] Influenza Virus Vaccine 2009-08-30 00:00:00 Completed [facility] Hep B, Adol or Pedi Dosage 2009-08-30 00:00:00 Completed [facility] Influenza Virus Vaccine 2009-08-30 00:00:00 Completed [facility] Hep B, Adol or Pedi Dosage 2009-08-30 00:00:00 Completed [facility] Influenza Virus Vaccine 2009-08-30 00:00:00 Completed [facility] Hep B, Adol or Pedi Dosage 2009-08-30 00:00:00 Completed [facility] Influenza Virus Vaccine 2009-08-30 00:00:00 Completed [facility] Hep B, Adol or Pedi Dosage 2009-08-30 00:00:00 Completed [facility] Influenza Virus Vaccine 2009-08-30 00:00:00 Completed [facility] Hep B, Adol or Pedi Dosage 2009-08-30 00:00:00 Completed [facility] Influenza Virus Vaccine 2009-08-30 00:00:00 Completed [facility] Hep B, Adol or Pedi Dosage 2009-08-30 00:00:00 Completed [facility] Influenza Virus Vaccine 2009-08-30 00:00:00 Completed [facility] Hep B, Adol or Pedi Dosage 2009-08-30 00:00:00 Completed [facility] Influenza Virus Vaccine 2009-08-30 00:00:00 Completed [facility] Hep B, Adol or Pedi Dosage 2009-08-30 00:00:00 Completed [facility] Influenza Virus Vaccine 2009-08-30 00:00:00 Completed [facility] Hep B, Adol or Pedi Dosage 2009-08-30 00:00:00 Completed [facility] Influenza Virus Vaccine 2009-08-30 00:00:00 Completed [facility] Hep B, Adol or Pedi Dosage 2009-08-30 00:00:00 Completed [facility] Influenza Virus Vaccine 2009-08-30 00:00:00 Completed [facility] Hep B, Adol or Pedi Dosage 2009-08-30 00:00:00 Completed [facility] Influenza Virus Vaccine 2009-08-30 00:00:00 Completed [facility] Hep B, Adol or Pedi Dosage 2009-08-30 00:00:00 Completed [facility] Influenza Virus Vaccine 2009-08-30 00:00:00 Completed [facility] Hep B, Adol or Pedi Dosage 2009-08-30 00:00:00 Completed [facility] Influenza Virus Vaccine 2009-08-30 00:00:00 Completed [facility] Hep B, Adol or Pedi Dosage 2009-08-30 00:00:00 Completed [facility] Influenza Virus Vaccine 2009-08-30 00:00:00 Completed [facility] Hep B, Adol or Pedi Dosage 2009-08-30 00:00:00 Completed [facility] Influenza Virus Vaccine 2009-08-30 00:00:00 Completed [facility] Hep B, Adol or Pedi Dosage 2009-08-30 00:00:00 Completed [facility] Influenza Virus Vaccine 2009-08-30 00:00:00 Completed [facility] Hep B, Adol or Pedi Dosage 2009-08-30 00:00:00 Completed [facility] Influenza Virus Vaccine 2009-08-30 00:00:00 Completed [facility] Hep B, Adol or Pedi Dosage 2009-08-30 00:00:00 Completed [facility] Influenza Virus Vaccine 2009-08-30 00:00:00 Completed [facility] Hep B, Adol or Pedi Dosage 2009-08-30 00:00:00 Completed [facility] Influenza Virus Vaccine 2009-08-30 00:00:00 Completed [facility] Hep B, Adol or Pedi Dosage 2009-08-30 00:00:00 Completed [facility] Influenza Virus Vaccine 2009-08-30 00:00:00 Completed [facility] Hep B, Adol or Pedi Dosage 2009-08-30 00:00:00 Completed [facility] Influenza Virus Vaccine 2009-08-30 00:00:00 Completed [facility] Hep B, Adol or Pedi Dosage 2009-08-30 00:00:00 Completed [facility] Influenza Virus Vaccine 2009-08-30 00:00:00 Completed [facility] Hep B, Adol or Pedi Dosage 2009-08-30 00:00:00 Completed [facility] Influenza Virus Vaccine 2009-08-30 00:00:00 Completed [facility] Hep B, Adol or Pedi Dosage 2009-08-30 00:00:00 Completed [facility] Influenza Virus Vaccine 2009-08-30 00:00:00 Completed [facility] Hep B, Adol or Pedi Dosage 2009-08-30 00:00:00 Completed [facility] Influenza Virus Vaccine 2009-08-30 00:00:00 Completed [facility] Hep B, Adol or Pedi Dosage 2009-08-30 00:00:00 Completed [facility] Influenza Virus Vaccine 2009-08-30 00:00:00 Completed [facility] Hep B, Adol or Pedi Dosage 2009-08-30 00:00:00 Completed [facility] Influenza Virus Vaccine 2009-08-30 00:00:00 Completed [facility] Hep B, Adol or Pedi Dosage 2009-08-30 00:00:00 Completed [facility] Influenza Virus Vaccine 2009-08-30 00:00:00 Completed [facility] Hep B, Adol or Pedi Dosage 2009-08-30 00:00:00 Completed [facility] Influenza Virus Vaccine 2009-08-30 00:00:00 Completed [facility] Hep B, Adol or Pedi Dosage 2009-08-30 00:00:00 Completed [facility] Influenza Virus Vaccine 2009-08-30 00:00:00 Completed [facility] Hep B, Adol or Pedi Dosage 2009-08-30 00:00:00 Completed [facility] Influenza Virus Vaccine 2009-08-30 00:00:00 Completed [facility] Hep B, Adol or Pedi Dosage 2009-08-30 00:00:00 Completed [facility] Influenza Virus Vaccine 2009-08-30 00:00:00 Completed [facility] Hep B, Adol or Pedi Dosage 2009-08-30 00:00:00 Completed [facility] Influenza Virus Vaccine 2009-08-30 00:00:00 Completed [facility] Hep B, Adol or Pedi Dosage 2009-08-30 00:00:00 Completed [facility] Influenza Virus Vaccine 2009-08-30 00:00:00 Completed [facility] Hep B, Adol or Pedi Dosage 2009-08-30 00:00:00 Completed [facility] Influenza Virus Vaccine 2009-08-30 00:00:00 Completed [facility] Hep B, Adol or Pedi Dosage 2009-08-30 00:00:00 Completed [facility] Influenza Virus Vaccine 2009-08-30 00:00:00 Completed [facility] Hep B, Adol or Pedi Dosage 2009-08-30 00:00:00 Completed [facility] Influenza Virus Vaccine 2009-08-30 00:00:00 Completed [facility] Hep B, Adol or Pedi Dosage 2009-08-30 00:00:00 Completed [facility] Influenza Virus Vaccine 2009-08-30 00:00:00 Completed [facility] Hep B, Adol or Pedi Dosage 2009-08-30 00:00:00 Completed [facility] Influenza Virus Vaccine 2009-08-30 00:00:00 Completed [facility] Hep B, Adol or Pedi Dosage 2009-08-30 00:00:00 Completed [facility] Influenza Virus Vaccine 2009-08-30 00:00:00 Completed [facility] Hep B, Adol or Pedi Dosage 2009-08-30 00:00:00 Completed [facility] Influenza Virus Vaccine 2009-08-30 00:00:00 Completed [facility] Hep B, Adol or Pedi Dosage 2009-08-30 00:00:00 Completed [facility] Influenza Virus Vaccine 2009-08-30 00:00:00 Completed [facility] Hep B, Adol or Pedi Dosage 2009-08-30 00:00:00 Completed [facility] Influenza Virus Vaccine 2009-08-30 00:00:00 Completed [facility] Hep B, Adol or Pedi Dosage 2009-08-30 00:00:00 Completed [facility] Influenza Virus Vaccine 2009-08-30 00:00:00 Completed [facility] Hep B, Adol or Pedi Dosage 2009-08-30 00:00:00 Completed [facility] Influenza Virus Vaccine 2009-08-30 00:00:00 Completed [facility] Hep B, Adol or Pedi Dosage 2009-08-30 00:00:00 Completed [facility] Influenza Virus Vaccine 2009-08-30 00:00:00 Completed [facility] Hep B, Adol or Pedi Dosage 2009-08-30 00:00:00 Completed [facility] Influenza Virus Vaccine 2009-08-30 00:00:00 Completed [facility] Hep B, Adol or Pedi Dosage 2009-08-30 00:00:00 Completed [facility] Influenza Virus Vaccine 2009-08-30 00:00:00 Completed [facility] Hep B, Adol or Pedi Dosage 2009-08-30 00:00:00 Completed [facility] Influenza Virus Vaccine 2009-08-30 00:00:00 Completed [facility] Hep B, Adol or Pedi Dosage 2009-08-30 00:00:00 Completed [facility] Influenza Virus Vaccine 2009-08-30 00:00:00 Completed [facility] Hep B, Adol or Pedi Dosage 2009-08-30 00:00:00 Completed [facility] Influenza Virus Vaccine 2009-08-30 00:00:00 Completed [facility] Hep B, Adol or Pedi Dosage 2009-08-30 00:00:00 Completed [facility] Influenza Virus Vaccine 2009-08-30 00:00:00 Completed [facility] Hep B, Adol or Pedi Dosage 2009-08-30 00:00:00 Completed [facility] Influenza Virus Vaccine 2009-08-30 00:00:00 Completed [facility] Hep B, Adol or Pedi Dosage 2009-08-30 00:00:00 Completed [facility] Influenza Virus Vaccine 2009-08-30 00:00:00 Completed [facility] Hep B, Adol or Pedi Dosage 2009-08-30 00:00:00 Completed [facility] Influenza Virus Vaccine 2009-08-30 00:00:00 Completed [facility] Hep B, Adol or Pedi Dosage 2009-08-30 00:00:00 Completed [facility] Influenza Virus Vaccine 2009-08-30 00:00:00 Completed [facility] Hep B, Adol or Pedi Dosage 2009-08-30 00:00:00 Completed [facility] Influenza Virus Vaccine 2009-08-30 00:00:00 Completed [facility] Hep B, Adol or Pedi Dosage 2009-08-30 00:00:00 Completed [facility] Influenza Virus Vaccine 2009-08-30 00:00:00 Completed [facility] Hep B, Adol or Pedi Dosage 2009-08-30 00:00:00 Completed [facility] Influenza Virus Vaccine 2009-08-30 00:00:00 Completed [facility] Hep B, Adol or Pedi Dosage 2009-08-30 00:00:00 Completed [facility] Influenza Virus Vaccine 2009-08-30 00:00:00 Completed [facility] Hep B, Adol or Pedi Dosage 2009-08-30 00:00:00 Completed [facility] Influenza Virus Vaccine 2009-08-30 00:00:00 Completed [facility] Hep B, Adol or Pedi Dosage 2009-08-30 00:00:00 Completed [facility] Influenza Virus Vaccine 2009-08-30 00:00:00 Completed [facility] Hep B, Adol or Pedi Dosage 2009-08-30 00:00:00 Completed [facility] Influenza Virus Vaccine 2009-08-30 00:00:00 Completed [facility] Hep B, Adol or Pedi Dosage 2009-08-30 00:00:00 Completed [facility] Influenza Virus Vaccine 2009-08-30 00:00:00 Completed [facility] Hep B, Adol or Pedi Dosage 2009-08-30 00:00:00 Completed [facility] Influenza Virus Vaccine 2009-08-30 00:00:00 Completed [facility] Hep B, Adol or Pedi Dosage 2009-08-30 00:00:00 Completed [facility] Influenza Virus Vaccine 2009-08-30 00:00:00 Completed [facility] Hep B, Adol or Pedi Dosage 2009-08-30 00:00:00 Completed [facility] Influenza Virus Vaccine 2009-08-30 00:00:00 Completed [facility] Hep B, Adol or Pedi Dosage 2009-08-30 00:00:00 Completed [facility] Influenza Virus Vaccine 2009-08-30 00:00:00 Completed [facility] Hep B, Adol or Pedi Dosage 2009-08-30 00:00:00 Completed [facility] Influenza Virus Vaccine 2009-08-30 00:00:00 Completed [facility] Hep B, Adol or Pedi Dosage 2009-08-30 00:00:00 Completed [facility] Influenza Virus Vaccine 2009-08-30 00:00:00 Completed [facility] Hep B, Adol or Pedi Dosage 2009-08-30 00:00:00 Completed [facility] Influenza Virus Vaccine 2009-08-30 00:00:00 Completed [facility] Hep B, Adol or Pedi Dosage 2009-08-30 00:00:00 Completed [facility] Influenza Virus Vaccine 2009-08-30 00:00:00 Completed [facility] Hep B, Adol or Pedi Dosage 2009-08-30 00:00:00 Completed [facility] Influenza Virus Vaccine 2009-08-30 00:00:00 Completed [facility] Hep B, Adol or Pedi Dosage 2009-08-30 00:00:00 Completed [facility] Influenza Virus Vaccine 2009-08-30 00:00:00 Completed [facility] Hep B, Adol or Pedi Dosage 2009-08-30 00:00:00 Completed [facility] Influenza Virus Vaccine 2009-08-30 00:00:00 Completed [facility] Hep B, Adol or Pedi Dosage 2009-08-30 00:00:00 Completed [facility] Influenza Virus Vaccine 2009-08-30 00:00:00 Completed [facility] Hep B, Adol or Pedi Dosage 2009-08-30 00:00:00 Completed [facility] Influenza Virus Vaccine 2009-08-30 00:00:00 Completed [facility] Hep B, Adol or Pedi Dosage 2009-08-30 00:00:00 Completed [facility] Influenza Virus Vaccine 2009-08-30 00:00:00 Completed [facility] Hep B, Adol or Pedi Dosage 2009-08-30 00:00:00 Completed [facility] Influenza Virus Vaccine 2009-08-30 00:00:00 Completed [facility] Hep B, Adol or Pedi Dosage 2009-08-30 00:00:00 Completed [facility] Influenza Virus Vaccine 2009-08-30 00:00:00 Completed [facility] Hep B, Adol or Pedi Dosage 2009-08-30 00:00:00 Completed [facility] Influenza Virus Vaccine 2009-08-30 00:00:00 Completed [facility] Hep B, Adol or Pedi Dosage 2009-08-30 00:00:00 Completed [facility] Influenza Virus Vaccine 2009-08-30 00:00:00 Completed [facility] Hep B, Adol or Pedi Dosage 2009-08-30 00:00:00 Completed [facility] Influenza Virus Vaccine 2009-08-30 00:00:00 Completed [facility] Hep B, Adol or Pedi Dosage 2009-08-30 00:00:00 Completed [facility] Influenza Virus Vaccine 2009-08-30 00:00:00 Completed [facility] Hep B, Adol or Pedi Dosage 2009-08-30 00:00:00 Completed [facility] Influenza Virus Vaccine 2009-08-30 00:00:00 Completed [facility] Hep B, Adol or Pedi Dosage 2009-08-30 00:00:00 Completed [facility] Influenza Virus Vaccine 2009-08-30 00:00:00 Completed [facility] Hep B, Adol or Pedi Dosage 2009-08-30 00:00:00 Completed [facility] Influenza Virus Vaccine 2009-08-30 00:00:00 Completed [facility] Hep B, Adol or Pedi Dosage 2009-08-30 00:00:00 Completed [facility] Influenza Virus Vaccine 2009-08-30 00:00:00 Completed [facility] Hep B, Adol or Pedi Dosage 2009-08-30 00:00:00 Completed [facility] Influenza Virus Vaccine 2009-08-30 00:00:00 Completed [facility] Hep B, Adol or Pedi Dosage 2009-08-30 00:00:00 Completed [facility] Influenza Virus Vaccine 2009-08-30 00:00:00 Completed [facility] Hep B, Adol or Pedi Dosage 2009-08-30 00:00:00 Completed [facility] Influenza Virus Vaccine 2009-08-30 00:00:00 Completed [facility] Hep B, Adol or Pedi Dosage 2009-08-30 00:00:00 Completed [facility] Influenza Virus Vaccine 2009-08-30 00:00:00 Completed [facility] Hep B, Adol or Pedi Dosage 2009-08-30 00:00:00 Completed [facility] Influenza Virus Vaccine 2009-08-30 00:00:00 Completed [facility] Hep B, Adol or Pedi Dosage 2009-08-30 00:00:00 Completed [facility] Influenza Virus Vaccine 2009-08-30 00:00:00 Completed [facility] Hep B, Adol or Pedi Dosage 2009-08-30 00:00:00 Completed [facility] Influenza Virus Vaccine 2009-08-30 00:00:00 Completed [facility] Hep B, Adol or Pedi Dosage 2009-08-30 00:00:00 Completed [facility] Influenza Virus Vaccine 2009-08-30 00:00:00 Completed [facility] Hep B, Adol or Pedi Dosage 2009-08-30 00:00:00 Completed [facility] Influenza Virus Vaccine 2009-08-30 00:00:00 Completed [facility] Hep B, Adol or Pedi Dosage 2009-08-30 00:00:00 Completed [facility] Influenza Virus Vaccine 2009-08-30 00:00:00 Completed [facility] Hep B, Adol or Pedi Dosage 2009-08-30 00:00:00 Completed [facility] Influenza Virus Vaccine 2009-08-30 00:00:00 Completed [facility] Hep B, Adol or Pedi Dosage 2009-08-30 00:00:00 Completed [facility] Influenza Virus Vaccine 2009-08-30 00:00:00 Completed [facility] Hep B, Adol or Pedi Dosage 2009-08-30 00:00:00 Completed [facility] Influenza Virus Vaccine 2009-08-30 00:00:00 [facility] [facility] Adol or Pedi Dosage 2009-08-30 00:00:00 Completed [facility] Influenza Virus Vaccine 2009-08-30 00:00:00 Completed [facility] Hep B, Adol or Pedi Dosage 2009-08-02 00:00:00 Completed [facility] Hep B, Adol or Pedi Dosage 2009-08-02 00:00:00 Completed [facility] Hep B, Adol or Pedi Dosage 2009-08-02 00:00:00 Completed [facility] Hep B, Adol or Pedi Dosage 2009-08-02 00:00:00 Completed [facility] Hep B, Adol or Pedi Dosage 2009-08-02 00:00:00 Completed [facility] Hep B, Adol or Pedi Dosage 2009-08-02 00:00:00 Completed [facility] Hep B, Adol or Pedi Dosage 2009-08-02 00:00:00 Completed [facility] Hep B, Adol or Pedi Dosage 2009-08-02 00:00:00 Completed [facility] Hep B, Adol or Pedi Dosage 2009-08-02 00:00:00 Completed [facility] Hep B, Adol or Pedi Dosage 2009-08-02 00:00:00 Completed [facility] Hep B, Adol or Pedi Dosage 2009-08-02 00:00:00 Completed [facility] Hep B, Adol or Pedi Dosage 2009-08-02 00:00:00 Completed [facility] Hep B, Adol or Pedi Dosage 2009-08-02 00:00:00 Completed [facility] Hep B, Adol or Pedi Dosage 2009-08-02 00:00:00 Completed [facility] Hep B, Adol or Pedi Dosage 2009-08-02 00:00:00 Completed [facility] Hep B, Adol or Pedi Dosage 2009-08-02 00:00:00 Completed [facility] Hep B, Adol or Pedi Dosage 2009-08-02 00:00:00 Completed [facility] Hep B, Adol or Pedi Dosage 2009-08-02 00:00:00 Completed [facility] Hep B, Adol or Pedi Dosage 2009-08-02 00:00:00 Completed [facility] Hep B, Adol or Pedi Dosage 2009-08-02 00:00:00 Completed [facility] Hep B, Adol or Pedi Dosage 2009-08-02 00:00:00 Completed [facility] Hep B, Adol or Pedi Dosage 2009-08-02 00:00:00 Completed [facility] Hep B, Adol or Pedi Dosage 2009-08-02 00:00:00 Completed [facility] Hep B, Adol or Pedi Dosage 2009-08-02 00:00:00 Completed [facility] Hep B, Adol or Pedi Dosage 2009-08-02 00:00:00 Completed [facility] Hep B, Adol or Pedi Dosage 2009-08-02 00:00:00 Completed [facility] Hep B, Adol or Pedi Dosage 2009-08-02 00:00:00 Completed [facility] Hep B, Adol or Pedi Dosage 2009-08-02 00:00:00 Completed [facility] Hep B, Adol or Pedi Dosage 2009-08-02 00:00:00 Completed [facility] Hep B, Adol or Pedi Dosage 2009-08-02 00:00:00 Completed [facility] Hep B, Adol or Pedi Dosage 2009-08-02 00:00:00 Completed [facility] Hep B, Adol or Pedi Dosage 2009-08-02 00:00:00 Completed [facility] Hep B, Adol or Pedi Dosage 2009-08-02 00:00:00 Completed [facility] Hep B, Adol or Pedi Dosage 2009-08-02 00:00:00 Completed [facility] Hep B, Adol or Pedi Dosage 2009-08-02 00:00:00 Completed [facility] Hep B, Adol or Pedi Dosage 2009-08-02 00:00:00 Completed [facility] Hep B, Adol or Pedi Dosage 2009-08-02 00:00:00 Completed [facility] Hep B, Adol or Pedi Dosage 2009-08-02 00:00:00 Completed [facility] Hep B, Adol or Pedi Dosage 2009-08-02 00:00:00 Completed [facility] Hep B, Adol or Pedi Dosage 2009-08-02 00:00:00 Completed [facility] Hep B, Adol or Pedi Dosage 2009-08-02 00:00:00 Completed [facility] Hep B, Adol or Pedi Dosage 2009-08-02 00:00:00 Completed [facility] Hep B, Adol or Pedi Dosage 2009-08-02 00:00:00 Completed [facility] Hep B, Adol or Pedi Dosage 2009-08-02 00:00:00 Completed [facility] Hep B, Adol or Pedi Dosage 2009-08-02 00:00:00 Completed [facility] Hep B, Adol or Pedi Dosage 2009-08-02 00:00:00 Completed [facility] Hep B, Adol or Pedi Dosage 2009-08-02 00:00:00 Completed [facility] Hep B, Adol or Pedi Dosage 2009-08-02 00:00:00 Completed [facility] Hep B, Adol or Pedi Dosage 2009-08-02 00:00:00 Completed [facility] Hep B, Adol or Pedi Dosage 2009-08-02 00:00:00 Completed [facility] Hep B, Adol or Pedi Dosage 2009-08-02 00:00:00 Completed [facility] Hep B, Adol or Pedi Dosage 2009-08-02 00:00:00 Completed [facility] Hep B, Adol or Pedi Dosage 2009-08-02 00:00:00 Completed [facility] Hep B, Adol or Pedi Dosage 2009-08-02 00:00:00 Completed [facility] Hep B, Adol or Pedi Dosage 2009-08-02 00:00:00 Completed [facility] Hep B, Adol or Pedi Dosage 2009-08-02 00:00:00 Completed [facility] Hep B, Adol or Pedi Dosage 2009-08-02 00:00:00 Completed [facility] Hep B, Adol or Pedi Dosage 2009-08-02 00:00:00 Completed [facility] Hep B, Adol or Pedi Dosage 2009-08-02 00:00:00 Completed [facility] Hep B, Adol or Pedi Dosage 2009-08-02 00:00:00 Completed [facility] Hep B, Adol or Pedi Dosage 2009-08-02 00:00:00 Completed [facility] Hep B, Adol or Pedi Dosage 2009-08-02 00:00:00 Completed [facility] Hep B, Adol or Pedi Dosage 2009-08-02 00:00:00 Completed [facility] Hep B, Adol or Pedi Dosage 2009-08-02 00:00:00 Completed [facility] Hep B, Adol or Pedi Dosage 2009-08-02 00:00:00 Completed [facility] Hep B, Adol or Pedi Dosage 2009-08-02 00:00:00 Completed [facility] Hep B, Adol or Pedi Dosage 2009-08-02 00:00:00 Completed [facility] Hep B, Adol or Pedi Dosage 2009-08-02 00:00:00 Completed [facility] Hep B, Adol or Pedi Dosage 2009-08-02 00:00:00 Completed [facility] Hep B, Adol or Pedi Dosage 2009-08-02 00:00:00 Completed [facility] Hep B, Adol or Pedi Dosage 2009-08-02 00:00:00 Completed [facility] Hep B, Adol or Pedi Dosage 2009-08-02 00:00:00 Completed [facility] Hep B, Adol or Pedi Dosage 2009-08-02 00:00:00 Completed [facility] Hep B, Adol or Pedi Dosage 2009-08-02 00:00:00 Completed [facility] Hep B, Adol or Pedi Dosage 2009-08-02 00:00:00 Completed [facility] Hep B, Adol or Pedi Dosage 2009-08-02 00:00:00 Completed [facility] Hep B, Adol or Pedi Dosage 2009-08-02 00:00:00 Completed [facility] Hep B, Adol or Pedi Dosage 2009-08-02 00:00:00 Completed [facility] Hep B, Adol or Pedi Dosage 2009-08-02 00:00:00 Completed [facility] Hep B, Adol or Pedi Dosage 2009-08-02 00:00:00 Completed [facility] Hep B, Adol or Pedi Dosage 2009-08-02 00:00:00 Completed [facility] Hep B, Adol or Pedi Dosage 2009-08-02 00:00:00 Completed [facility] Hep B, Adol or Pedi Dosage 2009-08-02 00:00:00 Completed [facility] Hep B, Adol or Pedi Dosage 2009-08-02 00:00:00 Completed [facility] Hep B, Adol or Pedi Dosage 2009-08-02 00:00:00 Completed [facility] Hep B, Adol or Pedi Dosage 2009-08-02 00:00:00 Completed [facility] Hep B, Adol or Pedi Dosage 2009-08-02 00:00:00 Completed [facility] Hep B, Adol or Pedi Dosage 2009-08-02 00:00:00 Completed [facility] Hep B, Adol or Pedi Dosage 2009-08-02 00:00:00 Completed [facility] Hep B, Adol or Pedi Dosage 2009-08-02 00:00:00 Completed [facility] Hep B, Adol or Pedi Dosage 2009-08-02 00:00:00 Completed [facility] Hep B, Adol or Pedi Dosage 2009-08-02 00:00:00 Completed [facility] Hep B, Adol or Pedi Dosage 2009-08-02 00:00:00 Completed [facility] Hep B, Adol or Pedi Dosage 2009-08-02 00:00:00 Completed [facility] Hep B, Adol or Pedi Dosage 2009-08-02 00:00:00 Completed [facility] Hep B, Adol or Pedi Dosage 2009-08-02 00:00:00 Completed [facility] Hep B, Adol or Pedi Dosage 2009-08-02 00:00:00 Completed [facility] Hep B, Adol or Pedi Dosage 2009-08-02 00:00:00 Completed [facility] Hep B, Adol or Pedi Dosage 2009-08-02 00:00:00 Completed [facility] Hep B, Adol or Pedi Dosage 2009-08-02 00:00:00 Completed [facility] Hep B, Adol or Pedi Dosage 2009-08-02 00:00:00 Completed [facility] Hep B, Adol or Pedi Dosage 2009-08-02 00:00:00 Completed [facility] Hep B, Adol or Pedi Dosage 2009-08-02 00:00:00 Completed [facility] Hep B, Adol or Pedi Dosage 2009-08-02 00:00:00 Completed [facility] Hep B, Adol or Pedi Dosage 2009-08-02 00:00:00 Completed [facility] Hep B, Adol or Pedi Dosage 2009-08-02 00:00:00 Completed [facility] Hep B, Adol or Pedi Dosage 2009-08-02 00:00:00 Completed [facility] Hep B, Adol or Pedi Dosage 2009-08-02 00:00:00 Completed [facility] Hep B, Adol or Pedi Dosage Unknown Completed [facility] Hep B, Adol or Pedi Dosage Unknown Completed [facility] Influenza Virus Vaccine Unknown Completed [facility] Pneumococcal Polysaccharide, PPSV23 (PNEUMOVAX) Unknown Completed [facility] H1n1 Vaccine Unknown Completed [facility] Hep B, Adol or Pedi Dosage Unknown Completed [facility] Influenza Virus Vaccine Unknown Completed [facility] Influenza Virus Vaccine Unknown Completed [facility] Influenza Virus Vaccine Unknown Completed [facility] Influenza Virus Vaccine Unknown Completed [facility] Influenza Virus Vaccine (3+ yrs) Unknown Completed [facility] Influenza Virus Vaccine Quad ID 18-64 YRS Unknown Completed [facility] Influenza Virus Vaccine Quad IM Multi-dose 6+ MO Unknown Completed [facility] TDAP Unknown Completed [facility] Influenza Virus Vaccine Quad ID 18-64 YRS Unknown Completed [facility] Influenza Virus Vaccine Quad IM 3+ YRS Unknown Completed [facility] Influenza Virus Vaccine Quad .5 mL IM 6+ MO (FLUZONE/FLULAVAL/F LUARIX) Unknown Completed [facility] Influenza Virus Vaccine Quad .5 mL IM 6+ MO (FLUZONE/FLULAVAL/F LUARIX) Unknown Completed [facility] Pneumococcal 13 Conjugate, PCV13 (Prevnar 13) Unknown Completed [facility] Influenza Virus Vaccine Quad .5 mL IM 6+ MO (FLUZONE/FLULAVAL/F LUARIX) Unknown Completed [facility] SARS-COV-2 COVID-19 PFIZER VACCINE Unknown Completed [facility] SARS-COV-2 COVID-19 PFIZER VACCINE Unknown Completed [facility] Pneumococcal Polysaccharide, PPSV23 (PNEUMOVAX) Unknown Completed [facility] Influenza Virus Vaccine,quad Im,preserve Free 65+ (FLUAD) Unknown Completed [facility] Hep B, Adol or Pedi Dosage Unknown Completed [facility] Hep B, Adol or Pedi Dosage Unknown Completed [facility] Influenza Virus Vaccine Unknown Completed [facility] Pneumococcal Polysaccharide, PPSV23 (PNEUMOVAX) Unknown Completed [facility] H1n1 Vaccine Unknown Completed [facility] Hep B, Adol or Pedi Dosage Unknown Completed [facility] Influenza Virus Vaccine Unknown Completed [facility] Influenza Virus Vaccine Unknown Completed [facility] Influenza Virus Vaccine Unknown Completed [facility] Influenza Virus Vaccine Unknown Completed [facility] Influenza Virus Vaccine (3+ yrs) Unknown Completed [facility] Influenza Virus Vaccine Quad ID 18-64 YRS Unknown Completed [facility] Influenza Virus Vaccine Quad IM Multi-dose 6+ MO Unknown Completed [facility] TDAP Unknown Completed [facility] Influenza Virus Vaccine Quad ID 18-64 YRS Unknown Completed [facility] Influenza Virus Vaccine Quad IM 3+ YRS Unknown Completed [facility] Influenza Virus Vaccine Quad .5 mL IM 6+ MO (FLUZONE/FLULAVAL/F LUARIX) Unknown Completed [facility] Influenza Virus Vaccine Quad .5 mL IM 6+ MO (FLUZONE/FLULAVAL/F LUARIX) Unknown Completed [facility] Pneumococcal 13 Conjugate, PCV13 (Prevnar 13) Unknown Completed [facility] Influenza Virus Vaccine Quad .5 mL IM 6+ MO (FLUZONE/FLULAVAL/F LUARIX) Unknown Completed [facility] SARS-COV-2 COVID-19 PFIZER VACCINE Unknown Completed [facility] SARS-COV-2 COVID-19 PFIZER VACCINE Unknown Completed [facility] Pneumococcal Polysaccharide, PPSV23 (PNEUMOVAX) Unknown Completed [facility] Influenza Virus Vaccine,quad Im,preserve Free 65+ (FLUAD) Unknown Completed [facility] Hep B, Adol or Pedi Dosage Unknown Completed [facility] Hep B, Adol or Pedi Dosage Unknown Completed [facility] Influenza Virus Vaccine Unknown Completed [facility] Pneumococcal Polysaccharide, PPSV23 (PNEUMOVAX) Unknown Completed [facility] H1n1 Vaccine Unknown Completed [facility] Hep B, Adol or Pedi Dosage Unknown Completed [facility] Influenza Virus Vaccine Unknown Completed [facility] Influenza Virus Vaccine Unknown Completed [facility] Influenza Virus Vaccine Unknown Completed [facility] Influenza Virus Vaccine Unknown Completed [facility] Influenza Virus Vaccine (3+ yrs) Unknown Completed [facility] Influenza Virus Vaccine Quad ID 18-64 YRS Unknown Completed [facility] Influenza Virus Vaccine Quad IM Multi-dose 6+ MO Unknown Completed [facility] TDAP Unknown Completed [facility] Influenza Virus Vaccine Quad ID 18-64 YRS Unknown Completed [facility] Influenza Virus Vaccine Quad IM 3+ YRS Unknown Completed [facility] Influenza Virus Vaccine Quad .5 mL IM 6+ MO (FLUZONE/FLULAVAL/F LUARIX) Unknown Completed [facility] Influenza Virus Vaccine Quad .5 mL IM 6+ MO (FLUZONE/FLULAVAL/F LUARIX) Unknown Completed [facility] Pneumococcal 13 Conjugate, PCV13 (Prevnar 13) Unknown Completed [facility] Influenza Virus Vaccine Quad .5 mL IM 6+ MO (FLUZONE/FLULAVAL/F LUARIX) Unknown Completed [facility] SARS-COV-2 COVID-19 PFIZER VACCINE Unknown Completed [facility] SARS-COV-2 COVID-19 PFIZER VACCINE Unknown Completed [facility] Pneumococcal Polysaccharide, PPSV23 (PNEUMOVAX) Unknown Completed [facility] Influenza Virus Vaccine,quad Im,preserve Free 65+ (FLUAD) Unknown Completed [facility] Hep B, Adol or Pedi Dosage Unknown Completed [facility] Hep B, Adol or Pedi Dosage Unknown Completed [facility] Influenza Virus Vaccine Unknown Completed [facility] Pneumococcal Polysaccharide, PPSV23 (PNEUMOVAX) Unknown Completed [facility] H1n1 Vaccine Unknown Completed [facility] Hep B, Adol or Pedi Dosage Unknown Completed [facility] Influenza Virus Vaccine Unknown Completed [facility] Influenza Virus Vaccine Unknown Completed [facility] Influenza Virus Vaccine Unknown Completed [facility] Influenza Virus Vaccine Unknown Completed [facility] Influenza Virus Vaccine (3+ yrs) Unknown Completed [facility] Influenza Virus Vaccine Quad ID 18-64 YRS Unknown Completed [facility] Influenza Virus Vaccine Quad IM Multi-dose 6+ MO Unknown Completed [facility] TDAP Unknown Completed [facility] Influenza Virus Vaccine Quad ID 18-64 YRS Unknown Completed [facility] Influenza Virus Vaccine Quad IM 3+ YRS Unknown Completed [facility] Influenza Virus Vaccine Quad .5 mL IM 6+ MO (FLUZONE/FLULAVAL/F LUARIX) Unknown Completed [facility] Influenza Virus Vaccine Quad .5 mL IM 6+ MO (FLUZONE/FLULAVAL/F LUARIX) Unknown Completed [facility] Pneumococcal 13 Conjugate, PCV13 (Prevnar 13) Unknown Completed [facility] Influenza Virus Vaccine Quad .5 mL IM 6+ MO (FLUZONE/FLULAVAL/F LUARIX) Unknown Completed [facility] SARS-COV-2 COVID-19 PFIZER VACCINE Unknown Completed [facility] SARS-COV-2 COVID-19 PFIZER VACCINE Unknown Completed [facility] Pneumococcal Polysaccharide, PPSV23 (PNEUMOVAX) Unknown Completed [facility] Influenza Virus Vaccine,quad Im,preserve Free 65+ (FLUAD) Unknown Completed [facility] Hep B, Adol or Pedi Dosage Unknown Completed [facility] Hep B, Adol or Pedi Dosage Unknown Completed [facility] Influenza Virus Vaccine Unknown Completed [facility] Pneumococcal Polysaccharide, PPSV23 (PNEUMOVAX) Unknown Completed [facility] H1n1 Vaccine Unknown Completed [facility] Hep B, Adol or Pedi Dosage Unknown Completed [facility] Influenza Virus Vaccine Unknown Completed [facility] Influenza Virus Vaccine Unknown Completed [facility] Influenza Virus Vaccine Unknown Completed [facility] Influenza Virus Vaccine Unknown Completed [facility] Influenza Virus Vaccine (3+ yrs) Unknown Completed [facility] Influenza Virus Vaccine Quad ID 18-64 YRS Unknown Completed [facility] Influenza Virus Vaccine Quad IM Multi-dose 6+ MO Unknown Completed [facility] TDAP Unknown Completed [facility] Influenza Virus Vaccine Quad ID 18-64 YRS Unknown Completed [facility] Influenza Virus Vaccine Quad IM 3+ YRS Unknown Completed [facility] Influenza Virus Vaccine Quad .5 mL IM 6+ MO (FLUZONE/FLULAVAL/F LUARIX) Unknown Completed [facility] Influenza Virus Vaccine Quad .5 mL IM 6+ MO (FLUZONE/FLULAVAL/F LUARIX) Unknown Completed [facility] Pneumococcal 13 Conjugate, PCV13 (Prevnar 13) Unknown Completed [facility] Influenza Virus Vaccine Quad .5 mL IM 6+ MO (FLUZONE/FLULAVAL/F LUARIX) Unknown Completed [facility] SARS-COV-2 COVID-19 PFIZER VACCINE Unknown Completed [facility] SARS-COV-2 COVID-19 PFIZER VACCINE Unknown Completed [facility] Pneumococcal Polysaccharide, PPSV23 (PNEUMOVAX) Unknown Completed [facility] Influenza Virus Vaccine,quad Im,preserve Free 65+ (FLUAD) Unknown Completed [facility] Hep B, Adol or Pedi Dosage Unknown Completed [facility] Hep B, Adol or Pedi Dosage Unknown Completed [facility] Influenza Virus Vaccine Unknown Completed [facility] Pneumococcal Polysaccharide, PPSV23 (PNEUMOVAX) Unknown Completed [facility] H1n1 Vaccine Unknown Completed [facility] Hep B, Adol or Pedi Dosage Unknown Completed [facility] Influenza Virus Vaccine Unknown Completed [facility] Influenza Virus Vaccine Unknown Completed [facility] Influenza Virus Vaccine Unknown Completed [facility] Influenza Virus Vaccine Unknown Completed [facility] Influenza Virus Vaccine (3+ yrs) Unknown Completed [facility] Influenza Virus Vaccine Quad ID 18-64 YRS Unknown Completed [facility] Influenza Virus Vaccine Quad IM Multi-dose 6+ MO Unknown Completed [facility] TDAP Unknown Completed [facility] Influenza Virus Vaccine Quad ID 18-64 YRS Unknown Completed [facility] Influenza Virus Vaccine Quad IM 3+ YRS Unknown Completed [facility] Influenza Virus Vaccine Quad .5 mL IM 6+ MO (FLUZONE/FLULAVAL/F LUARIX) Unknown Completed [facility] Influenza Virus Vaccine Quad .5 mL IM 6+ MO (FLUZONE/FLULAVAL/F LUARIX) Unknown Completed [facility] Pneumococcal 13 Conjugate, PCV13 (Prevnar 13) Unknown Completed [facility] Influenza Virus Vaccine Quad .5 mL IM 6+ MO (FLUZONE/FLULAVAL/F LUARIX) Unknown Completed [facility] SARS-COV-2 COVID-19 PFIZER VACCINE Unknown Completed [facility] SARS-COV-2 COVID-19 PFIZER VACCINE Unknown Completed [facility] Pneumococcal Polysaccharide, PPSV23 (PNEUMOVAX) Unknown Completed [facility] Influenza Virus Vaccine,quad Im,preserve Free 65+ (FLUAD) Unknown Completed [facility] Hep B, Adol or Pedi Dosage Unknown Completed [facility] Hep B, Adol or Pedi Dosage Unknown Completed [facility] Influenza Virus Vaccine Unknown Completed [facility] Pneumococcal Polysaccharide, PPSV23 (PNEUMOVAX) Unknown Completed [facility] H1n1 Vaccine Unknown Completed [facility] Hep B, Adol or Pedi Dosage Unknown Completed [facility] Influenza Virus Vaccine Unknown Completed [facility] Influenza Virus Vaccine Unknown Completed [facility] Influenza Virus Vaccine Unknown Completed [facility] Influenza Virus Vaccine Unknown Completed [facility] Influenza Virus Vaccine (3+ yrs) Unknown Completed [facility] Influenza Virus Vaccine Quad ID 18-64 YRS Unknown Completed [facility] Influenza Virus Vaccine Quad IM Multi-dose 6+ MO Unknown Completed [facility] TDAP Unknown Completed [facility] Influenza Virus Vaccine Quad ID 18-64 YRS Unknown Completed [facility] Influenza Virus Vaccine Quad IM 3+ YRS Unknown Completed [facility] Influenza Virus Vaccine Quad .5 mL IM 6+ MO (FLUZONE/FLULAVAL/F LUARIX) Unknown Completed [facility] Influenza Virus Vaccine Quad .5 mL IM 6+ MO (FLUZONE/FLULAVAL/F LUARIX) Unknown Completed [facility] Pneumococcal 13 Conjugate, PCV13 (Prevnar 13) Unknown Completed [facility] Influenza Virus Vaccine Quad .5 mL IM 6+ MO (FLUZONE/FLULAVAL/F LUARIX) Unknown Completed [facility] SARS-COV-2 COVID-19 PFIZER VACCINE Unknown Completed [facility] SARS-COV-2 COVID-19 PFIZER VACCINE Unknown Completed [facility] Pneumococcal Polysaccharide, PPSV23 (PNEUMOVAX) Unknown Completed [facility] Hep B, Adol or Pedi Dosage Unknown Completed [facility] Hep B, Adol or Pedi Dosage Unknown Completed [facility] Influenza Virus Vaccine Unknown Completed [facility] Pneumococcal Polysaccharide, PPSV23 (PNEUMOVAX) Unknown Completed [facility] H1n1 Vaccine Unknown Completed [facility] Hep B, Adol or Pedi Dosage Unknown Completed [facility] Influenza Virus Vaccine Unknown Completed [facility] Influenza Virus Vaccine Unknown Completed [facility] Influenza Virus Vaccine Unknown Completed [facility] Influenza Virus Vaccine Unknown Completed [facility] Influenza Virus Vaccine (3+ yrs) Unknown Completed [facility] Influenza Virus Vaccine Quad ID 18-64 YRS Unknown Completed [facility] Influenza Virus Vaccine Quad IM Multi-dose 6+ MO Unknown Completed [facility] TDAP Unknown Completed [facility] Influenza Virus Vaccine Quad ID 18-64 YRS Unknown Completed [facility] Influenza Virus Vaccine Quad IM 3+ YRS Unknown Completed [facility] Influenza Virus Vaccine Quad .5 mL IM 6+ MO (FLUZONE/FLULAVAL/F LUARIX) Unknown Completed [facility] Influenza Virus Vaccine Quad .5 mL IM 6+ MO (FLUZONE/FLULAVAL/F LUARIX) Unknown Completed [facility] Pneumococcal 13 Conjugate, PCV13 (Prevnar 13) Unknown Completed [facility] Influenza Virus Vaccine Quad .5 mL IM 6+ MO (FLUZONE/FLULAVAL/F LUARIX) Unknown Completed [facility] SARS-COV-2 COVID-19 PFIZER VACCINE Unknown Completed [facility] SARS-COV-2 COVID-19 PFIZER VACCINE Unknown Completed [facility] Pneumococcal Polysaccharide, PPSV23 (PNEUMOVAX) Unknown Completed [facility] Hep B, Adol or Pedi Dosage Unknown Completed [facility] Hep B, Adol or Pedi Dosage Unknown Completed [facility] Influenza Virus Vaccine Unknown Completed [facility] Pneumococcal Polysaccharide, PPSV23 (PNEUMOVAX) Unknown Completed [facility] H1n1 Vaccine Unknown Completed [facility] Hep B, Adol or Pedi Dosage Unknown Completed [facility] Influenza Virus Vaccine Unknown Completed [facility] Influenza Virus Vaccine Unknown Completed [facility] Influenza Virus Vaccine Unknown Completed [facility] Influenza Virus Vaccine Unknown Completed [facility] Influenza Virus Vaccine (3+ yrs) Unknown Completed [facility] Influenza Virus Vaccine Quad ID 18-64 YRS Unknown Completed [facility] Influenza Virus Vaccine Quad IM Multi-dose 6+ MO Unknown Completed [facility] TDAP Unknown Completed [facility] Influenza Virus Vaccine Quad IM 3+ YRS Unknown Completed [facility] Influenza Virus Vaccine Quad .5 mL IM 6+ MO (FLUZONE/FLULAVAL/F LUARIX) Unknown Completed [facility] Influenza Virus Vaccine Quad .5 mL IM 6+ MO (FLUZONE/FLULAVAL/F LUARIX) Unknown Completed [facility] Pneumococcal 13 Conjugate, PCV13 (Prevnar 13) Unknown Completed [facility] Influenza Virus Vaccine Quad .5 mL IM 6+ MO (FLUZONE/FLULAVAL/F LUARIX) Unknown Completed [facility] SARS-COV-2 COVID-19 PFIZER VACCINE Unknown Completed [facility] SARS-COV-2 COVID-19 PFIZER VACCINE Unknown Completed [facility] Pneumococcal Polysaccharide, PPSV23 (PNEUMOVAX) Unknown Completed [facility] Hep B, Adol or Pedi Dosage Unknown Completed [facility] Hep B, Adol or Pedi Dosage Unknown Completed [facility] Influenza Virus Vaccine Unknown Completed [facility] Pneumococcal Polysaccharide, PPSV23 (PNEUMOVAX) Unknown Completed [facility] H1n1 Vaccine Unknown Completed [facility] Hep B, Adol or Pedi Dosage Unknown Completed [facility] Influenza Virus Vaccine Unknown Completed [facility] Influenza Virus Vaccine Unknown Completed [facility] Influenza Virus Vaccine Unknown Completed [facility] Influenza Virus Vaccine Unknown Completed [facility] Influenza Virus Vaccine (3+ yrs) Unknown Completed [facility] Influenza Virus Vaccine Quad ID 18-64 YRS Unknown Completed [facility] Influenza Virus Vaccine Quad IM Multi-dose 6+ MO Unknown Completed [facility] TDAP Unknown Completed [facility] Influenza Virus Vaccine Quad IM 3+ YRS Unknown Completed [facility] Influenza Virus Vaccine Quad .5 mL IM 6+ MO (FLUZONE/FLULAVAL/F LUARIX) Unknown Completed [facility] Influenza Virus Vaccine Quad .5 mL IM 6+ MO (FLUZONE/FLULAVAL/F LUARIX) Unknown Completed [facility] Pneumococcal 13 Conjugate, PCV13 (Prevnar 13) Unknown Completed [facility] Influenza Virus Vaccine Quad .5 mL IM 6+ MO (FLUZONE/FLULAVAL/F LUARIX) Unknown Completed [facility] SARS-COV-2 COVID-19 PFIZER VACCINE Unknown Completed [facility] SARS-COV-2 COVID-19 PFIZER VACCINE Unknown Completed [facility] Hep B, Adol or Pedi Dosage Unknown Completed [facility] Hep B, Adol or Pedi Dosage Unknown Completed [facility] Influenza Virus Vaccine Unknown Completed [facility] Pneumococcal Polysaccharide, PPSV23 (PNEUMOVAX) Unknown Completed [facility] H1n1 Vaccine Unknown Completed [facility] Hep B, Adol or Pedi Dosage Unknown Completed [facility] Influenza Virus Vaccine Unknown Completed [facility] Influenza Virus Vaccine Unknown Completed [facility] Influenza Virus Vaccine Unknown Completed [facility] Influenza Virus Vaccine Unknown Completed [facility] Influenza Virus Vaccine (3+ yrs) Unknown Completed [facility] Influenza Virus Vaccine Quad ID 18-64 YRS Unknown Completed [facility] Influenza Virus Vaccine Quad IM Multi-dose 6+ MO Unknown Completed [facility] TDAP Unknown Completed [facility] Influenza Virus Vaccine Quad IM 3+ YRS Unknown Completed [facility] Influenza Virus Vaccine Quad .5 mL IM 6+ MO (FLUZONE/FLULAVAL/F LUARIX) Unknown Completed [facility] Influenza Virus Vaccine Quad .5 mL IM 6+ MO (FLUZONE/FLULAVAL/F LUARIX) Unknown Completed [facility] Pneumococcal 13 Conjugate, PCV13 (Prevnar 13) Unknown Completed [facility] Influenza Virus Vaccine Quad .5 mL IM 6+ MO (FLUZONE/FLULAVAL/F LUARIX) Unknown Completed [facility] SARS-COV-2 COVID-19 PFIZER VACCINE Unknown Completed [facility] SARS-COV-2 COVID-19 PFIZER VACCINE Unknown Completed [facility] Hep B, Adol or Pedi Dosage Unknown Completed [facility] Hep B, Adol or Pedi Dosage Unknown Completed [facility] Influenza Virus Vaccine Unknown Completed [facility] Pneumococcal Polysaccharide, PPSV23 (PNEUMOVAX) Unknown Completed [facility] H1n1 Vaccine Unknown Completed [facility] Hep B, Adol or Pedi Dosage Unknown Completed [facility] Influenza Virus Vaccine Unknown Completed [facility] Influenza Virus Vaccine Unknown Completed [facility] Influenza Virus Vaccine Unknown Completed [facility] Influenza Virus Vaccine Unknown Completed [facility] Influenza Virus Vaccine (3+ yrs) Unknown Completed [facility] Influenza Virus Vaccine Quad ID 18-64 YRS Unknown Completed [facility] Influenza Virus Vaccine Quad IM Multi-dose 6+ MO Unknown Completed [facility] TDAP Unknown Completed [facility] Influenza Virus Vaccine Quad IM 3+ YRS Unknown Completed [facility] Influenza Virus Vaccine Quad .5 mL IM 6+ MO (FLUZONE/FLULAVAL/F LUARIX) Unknown Completed [facility] Influenza Virus Vaccine Quad .5 mL IM 6+ MO (FLUZONE/FLULAVAL/F LUARIX) Unknown Completed [facility] Pneumococcal 13 Conjugate, PCV13 (Prevnar 13) Unknown Completed [facility] Influenza Virus Vaccine Quad .5 mL IM 6+ MO (FLUZONE/FLULAVAL/F LUARIX) Unknown Completed [facility] SARS-COV-2 COVID-19 PFIZER VACCINE Unknown Completed [facility] SARS-COV-2 COVID-19 PFIZER VACCINE Unknown Completed [facility] Hep B, Adol or Pedi Dosage Unknown Completed [facility] Hep B, Adol or Pedi Dosage Unknown Completed [facility] Influenza Virus Vaccine Unknown Completed [facility] Pneumococcal Polysaccharide, PPSV23 (PNEUMOVAX) Unknown Completed [facility] H1n1 Vaccine Unknown Completed [facility] Hep B, Adol or Pedi Dosage Unknown Completed [facility] Influenza Virus Vaccine Unknown Completed [facility] Influenza Virus Vaccine Unknown Completed [facility] Influenza Virus Vaccine Unknown Completed [facility] Influenza Virus Vaccine Unknown Completed [facility] Influenza Virus Vaccine (3+ yrs) Unknown Completed [facility] Influenza Virus Vaccine Quad ID 18-64 YRS Unknown Completed [facility] Influenza Virus Vaccine Quad IM Multi-dose 6+ MO Unknown Completed [facility] TDAP Unknown Completed [facility] Influenza Virus Vaccine Quad IM 3+ YRS Unknown Completed [facility] Influenza Virus Vaccine Quad .5 mL IM 6+ MO (FLUZONE/FLULAVAL/F LUARIX) Unknown Completed [facility] Influenza Virus Vaccine Quad .5 mL IM 6+ MO (FLUZONE/FLULAVAL/F LUARIX) Unknown Completed [facility] Pneumococcal 13 Conjugate, PCV13 (Prevnar 13) Unknown Completed [facility] Influenza Virus Vaccine Quad .5 mL IM 6+ MO (FLUZONE/FLULAVAL/F LUARIX) Unknown Completed [facility] SARS-COV-2 COVID-19 PFIZER VACCINE Unknown Completed [facility] SARS-COV-2 COVID-19 PFIZER VACCINE Unknown Completed [facility] Hep B, Adol or Pedi Dosage Unknown Completed [facility] Hep B, Adol or Pedi Dosage Unknown Completed [facility] Influenza Virus Vaccine Unknown Completed [facility] Pneumococcal Polysaccharide, PPSV23 (PNEUMOVAX) Unknown Completed [facility] H1n1 Vaccine Unknown Completed [facility] Hep B, Adol or Pedi Dosage Unknown Completed [facility] Influenza Virus Vaccine Unknown Completed [facility] Influenza Virus Vaccine Unknown Completed [facility] Influenza Virus Vaccine Unknown Completed [facility] Influenza Virus Vaccine Unknown Completed [facility] Influenza Virus Vaccine (3+ yrs) Unknown Completed [facility] Influenza Virus Vaccine Quad ID 18-64 YRS Unknown Completed [facility] Influenza Virus Vaccine Quad IM Multi-dose 6+ MO Unknown Completed [facility] TDAP Unknown Completed [facility] Influenza Virus Vaccine Quad IM 3+ YRS Unknown Completed [facility] Influenza Virus Vaccine Quad .5 mL IM 6+ MO (FLUZONE/FLULAVAL/F LUARIX) Unknown Completed [facility] Influenza Virus Vaccine Quad .5 mL IM 6+ MO (FLUZONE/FLULAVAL/F LUARIX) Unknown Completed [facility] Pneumococcal 13 Conjugate, PCV13 (Prevnar 13) Unknown Completed [facility] Influenza Virus Vaccine Quad .5 mL IM 6+ MO (FLUZONE/FLULAVAL/F LUARIX) Unknown Completed [facility] SARS-COV-2 COVID-19 PFIZER VACCINE Unknown Completed [facility] SARS-COV-2 COVID-19 PFIZER VACCINE Unknown Completed [facility] Hep B, Adol or Pedi Dosage Unknown Completed [facility] Hep B, Adol or Pedi Dosage Unknown Completed [facility] Influenza Virus Vaccine Unknown Completed [facility] Pneumococcal Polysaccharide, PPSV23 (PNEUMOVAX) Unknown Completed [facility] H1n1 Vaccine Unknown Completed [facility] Hep B, Adol or Pedi Dosage Unknown Completed [facility] Influenza Virus Vaccine Unknown Completed [facility] Influenza Virus Vaccine Unknown Completed [facility] Influenza Virus Vaccine Unknown Completed [facility] Influenza Virus Vaccine Unknown Completed [facility] Influenza Virus Vaccine (3+ yrs) Unknown Completed [facility] Influenza Virus Vaccine Quad ID 18-64 YRS Unknown Completed [facility] Influenza Virus Vaccine Quad IM Multi-dose 6+ MO Unknown Completed [facility] TDAP Unknown Completed [facility] Influenza Virus Vaccine Quad IM 3+ YRS Unknown Completed [facility] Influenza Virus Vaccine Quad .5 mL IM 6+ MO (FLUZONE/FLULAVAL/F LUARIX) Unknown Completed [facility] Influenza Virus Vaccine Quad .5 mL IM 6+ MO (FLUZONE/FLULAVAL/F LUARIX) Unknown Completed [facility] Pneumococcal 13 Conjugate, PCV13 (Prevnar 13) Unknown Completed [facility] Influenza Virus Vaccine Quad .5 mL IM 6+ MO (FLUZONE/FLULAVAL/F LUARIX) Unknown Completed [facility] Hep B, Adol or Pedi Dosage Unknown Completed [facility] Hep B, Adol or Pedi Dosage Unknown Completed [facility] Influenza Virus Vaccine Unknown Completed [facility] Pneumococcal Polysaccharide, PPSV23 (PNEUMOVAX) Unknown Completed [facility] H1n1 Vaccine Unknown Completed [facility] Hep B, Adol or Pedi Dosage Unknown Completed [facility] Influenza Virus Vaccine Unknown Completed [facility] Influenza Virus Vaccine Unknown Completed [facility] Influenza Virus Vaccine Unknown Completed [facility] Influenza Virus Vaccine Unknown Completed [facility] Influenza Virus Vaccine (3+ yrs) Unknown Completed [facility] Influenza Virus Vaccine Quad ID 18-64 YRS Unknown Completed [facility] Influenza Virus Vaccine Quad IM Multi-dose 6+ MO Unknown Completed [facility] TDAP Unknown Completed [facility] Influenza Virus Vaccine Quad IM 3+ YRS Unknown Completed [facility] Influenza Virus Vaccine Quad .5 mL IM 6+ MO (FLUZONE/FLULAVAL/F LUARIX) Unknown Completed [facility] Influenza Virus Vaccine Quad .5 mL IM 6+ MO (FLUZONE/FLULAVAL/F LUARIX) Unknown Completed [facility] Hep B, Adol or Pedi Dosage Unknown Completed [facility] Hep B, Adol or Pedi Dosage Unknown Completed [facility] Influenza Virus Vaccine Unknown Completed [facility] Pneumococcal Polysaccharide, PPSV23 (PNEUMOVAX) Unknown Completed [facility] H1n1 Vaccine Unknown Completed [facility] Hep B, Adol or Pedi Dosage Unknown Completed [facility] Influenza Virus Vaccine Unknown Completed [facility] Influenza Virus Vaccine Unknown Completed [facility] Influenza Virus Vaccine Unknown Completed [facility] Influenza Virus Vaccine Unknown Completed [facility] Influenza Virus Vaccine (3+ yrs) Unknown Completed [facility] Influenza Virus Vaccine Quad ID 18-64 YRS Unknown Completed [facility] Influenza Virus Vaccine Quad IM Multi-dose 6+ MO Unknown Completed [facility] TDAP Unknown Completed [facility] Influenza Virus Vaccine Quad IM 3+ YRS Unknown Completed [facility] Influenza Virus Vaccine Quad .5 mL IM 6+ MO (FLUZONE/FLULAVAL/F LUARIX) Unknown Completed [facility] Influenza Virus Vaccine Quad .5 mL IM 6+ MO (FLUZONE/FLULAVAL/F LUARIX) Unknown Completed [facility] Hep B, Adol or Pedi Dosage Unknown Completed [facility] Hep B, Adol or Pedi Dosage Unknown Completed [facility] Influenza Virus Vaccine Unknown Completed [facility] Pneumococcal Polysaccharide, PPSV23 (PNEUMOVAX) Unknown Completed [facility] H1n1 Vaccine Unknown Completed [facility] Hep B, Adol or Pedi Dosage Unknown Completed [facility] Influenza Virus Vaccine Unknown Completed [facility] Influenza Virus Vaccine Unknown Completed [facility] Influenza Virus Vaccine Unknown Completed [facility] Influenza Virus Vaccine Unknown Completed [facility] Influenza Virus Vaccine (3+ yrs) Unknown Completed [facility] Influenza Virus Vaccine Quad ID 18-64 YRS Unknown Completed [facility] Influenza Virus Vaccine Quad IM Multi-dose 6+ MO Unknown Completed [facility] TDAP Unknown Completed [facility] Influenza Virus Vaccine Quad ID 18-64 YRS Unknown Completed [facility] Influenza Virus Vaccine Quad IM 3+ YRS Unknown Completed [facility] Influenza Virus Vaccine Quad .5 mL IM 6+ MO (FLUZONE/FLULAVAL/F LUARIX) Unknown Completed [facility] Influenza Virus Vaccine Quad .5 mL IM 6+ MO (FLUZONE/FLULAVAL/F LUARIX) Unknown Completed [facility] Pneumococcal 13 Conjugate, PCV13 (Prevnar 13) Unknown Completed [facility] Influenza Virus Vaccine Quad .5 mL IM 6+ MO (FLUZONE/FLULAVAL/F LUARIX) Unknown Completed [facility] SARS-COV-2 COVID-19 PFIZER VACCINE Unknown Completed [facility] SARS-COV-2 COVID-19 PFIZER VACCINE Unknown Completed [facility] Pneumococcal Polysaccharide, PPSV23 (PNEUMOVAX) Unknown Completed [facility] Influenza Virus Vaccine,quad Im,preserve Free 65+ (FLUAD) Unknown Completed [facility] Hep B, Adol or Pedi Dosage Unknown Completed [facility] Hep B, Adol or Pedi Dosage Unknown Completed [facility] Influenza Virus Vaccine Unknown Completed [facility] Pneumococcal Polysaccharide, PPSV23 (PNEUMOVAX) Unknown Completed [facility] H1n1 Vaccine Unknown Completed [facility] Hep B, Adol or Pedi Dosage Unknown Completed [facility] Influenza Virus Vaccine Unknown Completed [facility] Influenza Virus Vaccine Unknown Completed [facility] Influenza Virus Vaccine Unknown Completed [facility] Influenza Virus Vaccine Unknown Completed [facility] Influenza Virus Vaccine (3+ yrs) Unknown Completed [facility] Influenza Virus Vaccine Quad ID 18-64 YRS Unknown Completed [facility] Influenza Virus Vaccine Quad IM Multi-dose 6+ MO Unknown Completed [facility] TDAP Unknown Completed [facility] Influenza Virus Vaccine Quad ID 18-64 YRS Unknown Completed [facility] Influenza Virus Vaccine Quad IM 3+ YRS Unknown Completed [facility] Influenza Virus Vaccine Quad .5 mL IM 6+ MO (FLUZONE/FLULAVAL/F LUARIX) Unknown Completed [facility] Influenza Virus Vaccine Quad .5 mL IM 6+ MO (FLUZONE/FLULAVAL/F LUARIX) Unknown Completed [facility] Pneumococcal 13 Conjugate, PCV13 (Prevnar 13) Unknown Completed [facility] Influenza Virus Vaccine Quad .5 mL IM 6+ MO (FLUZONE/FLULAVAL/F LUARIX) Unknown Completed [facility] SARS-COV-2 COVID-19 PFIZER VACCINE Unknown Completed [facility] SARS-COV-2 COVID-19 PFIZER VACCINE Unknown Completed [facility] Pneumococcal Polysaccharide, PPSV23 (PNEUMOVAX) Unknown Completed [facility] Influenza Virus Vaccine,quad Im,preserve Free 65+ (FLUAD) Unknown Completed [facility] Hep B, Adol or Pedi Dosage Unknown Completed [facility] Hep B, Adol or Pedi Dosage Unknown Completed [facility] Influenza Virus Vaccine Unknown Completed [facility] Pneumococcal Polysaccharide, PPSV23 (PNEUMOVAX) Unknown Completed [facility] H1n1 Vaccine Unknown Completed [facility] Hep B, Adol or Pedi Dosage Unknown Completed [facility] Influenza Virus Vaccine Unknown Completed [facility] Influenza Virus Vaccine Unknown Completed [facility] Influenza Virus Vaccine Unknown Completed [facility] Influenza Virus Vaccine Unknown Completed [facility] Influenza Virus Vaccine (3+ yrs) Unknown Completed [facility] Influenza Virus Vaccine Quad ID 18-64 YRS Unknown Completed [facility] Influenza Virus Vaccine Quad IM Multi-dose 6+ MO Unknown Completed [facility] TDAP Unknown Completed [facility] Influenza Virus Vaccine Quad ID 18-64 YRS Unknown Completed [facility] Influenza Virus Vaccine Quad IM 3+ YRS Unknown Completed [facility] Influenza Virus Vaccine Quad .5 mL IM 6+ MO (FLUZONE/FLULAVAL/F LUARIX) Unknown Completed [facility] Influenza Virus Vaccine Quad .5 mL IM 6+ MO (FLUZONE/FLULAVAL/F LUARIX) Unknown Completed [facility] Pneumococcal 13 Conjugate, PCV13 (Prevnar 13) Unknown Completed [facility] Influenza Virus Vaccine Quad .5 mL IM 6+ MO (FLUZONE/FLULAVAL/F LUARIX) Unknown Completed [facility] SARS-COV-2 COVID-19 PFIZER VACCINE Unknown Completed [facility] SARS-COV-2 COVID-19 PFIZER VACCINE Unknown Completed [facility] Pneumococcal Polysaccharide, PPSV23 (PNEUMOVAX) Unknown Completed [facility] Influenza Virus Vaccine,quad Im,preserve Free 65+ (FLUAD) Unknown Completed [facility] Influenza Virus Vaccine,quad Im,preserve Free 65+ (FLUAD) Unknown Completed [facility] Hep B, Adol or Pedi Dosage Unknown Completed [facility] Hep B, Adol or Pedi Dosage Unknown Completed [facility] Influenza Virus Vaccine Unknown Completed [facility] Pneumococcal Polysaccharide, PPSV23 (PNEUMOVAX) Unknown Completed [facility] H1n1 Vaccine Unknown Completed [facility] Hep B, Adol or Pedi Dosage Unknown Completed [facility] Influenza Virus Vaccine Unknown Completed [facility] Influenza Virus Vaccine Unknown Completed [facility] Influenza Virus Vaccine Unknown Completed [facility] Influenza Virus Vaccine Unknown Completed [facility] Influenza Virus Vaccine (3+ yrs) Unknown Completed [facility] Influenza Virus Vaccine Quad ID 18-64 YRS Unknown Completed [facility] Influenza Virus Vaccine Quad IM Multi-dose 6+ MO Unknown Completed [facility] TDAP Unknown Completed [facility] Influenza Virus Vaccine Quad ID 18-64 YRS Unknown Completed [facility] Influenza Virus Vaccine Quad IM 3+ YRS Unknown Completed [facility] Influenza Virus Vaccine Quad .5 mL IM 6+ MO (FLUZONE/FLULAVAL/F LUARIX) Unknown Completed [facility] Influenza Virus Vaccine Quad .5 mL IM 6+ MO (FLUZONE/FLULAVAL/F LUARIX) Unknown Completed [facility] Pneumococcal 13 Conjugate, PCV13 (Prevnar 13) Unknown Completed [facility] Influenza Virus Vaccine Quad .5 mL IM 6+ MO (FLUZONE/FLULAVAL/F LUARIX) Unknown Completed [facility] SARS-COV-2 COVID-19 PFIZER VACCINE Unknown Completed [facility] SARS-COV-2 COVID-19 PFIZER VACCINE Unknown Completed [facility] Pneumococcal Polysaccharide, PPSV23 (PNEUMOVAX) Unknown Completed [facility] Influenza Virus Vaccine,quad Im,preserve Free 65+ (FLUAD) Unknown Completed [facility] Influenza Virus Vaccine,quad Im,preserve Free 65+ (FLUAD) Unknown Completed [facility] Hep B, Adol or Pedi Dosage Unknown Completed [facility] Hep B, Adol or Pedi Dosage Unknown Completed [facility] Influenza Virus Vaccine Unknown Completed [facility] Pneumococcal Polysaccharide, PPSV23 (PNEUMOVAX) Unknown Completed [facility] H1n1 Vaccine Unknown Completed [facility] Hep B, Adol or Pedi Dosage Unknown Completed [facility] Influenza Virus Vaccine Unknown Completed [facility] Influenza Virus Vaccine Unknown Completed [facility] Influenza Virus Vaccine Unknown Completed [facility] Influenza Virus Vaccine Unknown Completed [facility] Influenza Virus Vaccine (3+ yrs) Unknown Completed [facility] Influenza Virus Vaccine Quad ID 18-64 YRS Unknown Completed [facility] Influenza Virus Vaccine Quad IM Multi-dose 6+ MO Unknown Completed [facility] TDAP Unknown Completed [facility] Influenza Virus Vaccine Quad ID 18-64 YRS Unknown Completed [facility] Influenza Virus Vaccine Quad IM 3+ YRS Unknown Completed [facility] Influenza Virus Vaccine Quad .5 mL IM 6+ MO (FLUZONE/FLULAVAL/F LUARIX) Unknown Completed [facility] Influenza Virus Vaccine Quad .5 mL IM 6+ MO (FLUZONE/FLULAVAL/F LUARIX) Unknown Completed [facility] Pneumococcal 13 Conjugate, PCV13 (Prevnar 13) Unknown Completed [facility] Influenza Virus Vaccine Quad .5 mL IM 6+ MO (FLUZONE/FLULAVAL/F LUARIX) Unknown Completed [facility] SARS-COV-2 COVID-19 PFIZER VACCINE Unknown Completed [facility] SARS-COV-2 COVID-19 PFIZER VACCINE Unknown Completed [facility] Pneumococcal Polysaccharide, PPSV23 (PNEUMOVAX) Unknown Completed [facility] Influenza Virus Vaccine,quad Im,preserve Free 65+ (FLUAD) Unknown Completed [facility] Influenza Virus Vaccine,quad Im,preserve Free 65+ (FLUAD) Unknown Completed [facility] Hep B, Adol or Pedi Dosage Unknown Completed [facility] Hep B, Adol or Pedi Dosage Unknown Completed [facility] Influenza Virus Vaccine Unknown Completed [facility] Pneumococcal Polysaccharide, PPSV23 (PNEUMOVAX) Unknown Completed [facility] H1n1 Vaccine Unknown Completed [facility] Hep B, Adol or Pedi Dosage Unknown Completed [facility] Influenza Virus Vaccine Unknown Completed [facility] Influenza Virus Vaccine Unknown Completed [facility] Influenza Virus Vaccine Unknown Completed [facility] Influenza Virus Vaccine Unknown Completed [facility] Influenza Virus Vaccine (3+ yrs) Unknown Completed [facility] Influenza Virus Vaccine Quad ID 18-64 YRS Unknown Completed [facility] Influenza Virus Vaccine Quad IM Multi-dose 6+ MO Unknown Completed [facility] TDAP Unknown Completed [facility] Influenza Virus Vaccine Quad ID 18-64 YRS Unknown Completed [facility] Influenza Virus Vaccine Quad IM 3+ YRS Unknown Completed [facility] Influenza Virus Vaccine Quad .5 mL IM 6+ MO (FLUZONE/FLULAVAL/F LUARIX) Unknown Completed [facility] Influenza Virus Vaccine Quad .5 mL IM 6+ MO (FLUZONE/FLULAVAL/F LUARIX) Unknown Completed [facility] Pneumococcal 13 Conjugate, PCV13 (Prevnar 13) Unknown Completed [facility] Influenza Virus Vaccine Quad .5 mL IM 6+ MO (FLUZONE/FLULAVAL/F LUARIX) Unknown Completed [facility] SARS-COV-2 COVID-19 PFIZER VACCINE Unknown Completed [facility] SARS-COV-2 COVID-19 PFIZER VACCINE Unknown Completed [facility] Pneumococcal Polysaccharide, PPSV23 (PNEUMOVAX) Unknown Completed [facility] Influenza Virus Vaccine,quad Im,preserve Free 65+ (FLUAD) Unknown Completed [facility] Influenza Virus Vaccine,quad Im,preserve Free 65+ (FLUAD) Unknown Completed [facility] Hep B, Adol or Pedi Dosage Unknown Completed [facility] Hep B, Adol or Pedi Dosage Unknown Completed [facility] Influenza Virus Vaccine Unknown Completed [facility] Pneumococcal Polysaccharide, PPSV23 (PNEUMOVAX) Unknown Completed [facility] H1n1 Vaccine Unknown Completed [facility] Hep B, Adol or Pedi Dosage Unknown Completed [facility] Influenza Virus Vaccine Unknown Completed [facility] Influenza Virus Vaccine Unknown Completed [facility] Influenza Virus Vaccine Unknown Completed [facility] Influenza Virus Vaccine Unknown Completed [facility] Influenza Virus Vaccine (3+ yrs) Unknown Completed [facility] Influenza Virus Vaccine Quad ID 18-64 YRS Unknown Completed [facility] Influenza Virus Vaccine Quad IM Multi-dose 6+ MO Unknown Completed [facility] TDAP Unknown Completed [facility] Influenza Virus Vaccine Quad ID 18-64 YRS Unknown Completed [facility] Influenza Virus Vaccine Quad IM 3+ YRS Unknown Completed [facility] Influenza Virus Vaccine Quad .5 mL IM 6+ MO (FLUZONE/FLULAVAL/F LUARIX) Unknown Completed [facility] Influenza Virus Vaccine Quad .5 mL IM 6+ MO (FLUZONE/FLULAVAL/F LUARIX) Unknown Completed [facility] Pneumococcal 13 Conjugate, PCV13 (Prevnar 13) Unknown Completed [facility] Influenza Virus Vaccine Quad .5 mL IM 6+ MO (FLUZONE/FLULAVAL/F LUARIX) Unknown Completed [facility] SARS-COV-2 COVID-19 PFIZER VACCINE Unknown Completed [facility] SARS-COV-2 COVID-19 PFIZER VACCINE Unknown Completed [facility] Pneumococcal Polysaccharide, PPSV23 (PNEUMOVAX) Unknown Completed [facility] Influenza Virus Vaccine,quad Im,preserve Free 65+ (FLUAD) Unknown Completed [facility] Influenza Virus Vaccine,quad Im,preserve Free 65+ (FLUAD) Unknown Completed [facility] Hep B, Adol or Pedi Dosage Unknown Completed [facility] Hep B, Adol or Pedi Dosage Unknown Completed [facility] Influenza Virus Vaccine Unknown Completed [facility] Pneumococcal Polysaccharide, PPSV23 (PNEUMOVAX) Unknown Completed [facility] H1n1 Vaccine Unknown Completed [facility] Hep B, Adol or Pedi Dosage Unknown Completed [facility] Influenza Virus Vaccine Unknown Completed [facility] Influenza Virus Vaccine Unknown Completed [facility] Influenza Virus Vaccine Unknown Completed [facility] Influenza Virus Vaccine Unknown Completed [facility] Influenza Virus Vaccine (3+ yrs) Unknown Completed [facility] Influenza Virus Vaccine Quad ID 18-64 YRS Unknown Completed [facility] Influenza Virus Vaccine Quad IM Multi-dose 6+ MO Unknown Completed [facility] TDAP Unknown Completed [facility] Influenza Virus Vaccine Quad ID 18-64 YRS Unknown Completed [facility] Influenza Virus Vaccine Quad IM 3+ YRS Unknown Completed [facility] Influenza Virus Vaccine Quad .5 mL IM 6+ MO (FLUZONE/FLULAVAL/F LUARIX) Unknown Completed [facility] Influenza Virus Vaccine Quad .5 mL IM 6+ MO (FLUZONE/FLULAVAL/F LUARIX) Unknown Completed [facility] Pneumococcal 13 Conjugate, PCV13 (Prevnar 13) Unknown Completed [facility] Influenza Virus Vaccine Quad .5 mL IM 6+ MO (FLUZONE/FLULAVAL/F LUARIX) Unknown Completed [facility] SARS-COV-2 COVID-19 PFIZER VACCINE Unknown Completed [facility] SARS-COV-2 COVID-19 PFIZER VACCINE Unknown Completed [facility] Pneumococcal Polysaccharide, PPSV23 (PNEUMOVAX) Unknown Completed [facility] Influenza Virus Vaccine,quad Im,preserve Free 65+ (FLUAD) Unknown Completed [facility] Influenza Virus Vaccine,quad Im,preserve Free 65+ (FLUAD) Unknown Completed [facility] Hep B, Adol or Pedi Dosage Unknown Completed [facility] Hep B, Adol or Pedi Dosage Unknown Completed [facility] Influenza Virus Vaccine Unknown Completed [facility] Pneumococcal Polysaccharide, PPSV23 (PNEUMOVAX) Unknown Completed [facility] H1n1 Vaccine Unknown Completed [facility] Hep B, Adol or Pedi Dosage Unknown Completed [facility] Influenza Virus Vaccine Unknown Completed [facility] Influenza Virus Vaccine Unknown Completed [facility] Influenza Virus Vaccine Unknown Completed [facility] Influenza Virus Vaccine Unknown Completed [facility] Influenza Virus Vaccine (3+ yrs) Unknown Completed [facility] Influenza Virus Vaccine Quad ID 18-64 YRS Unknown Completed [facility] Influenza Virus Vaccine Quad IM Multi-dose 6+ MO Unknown Completed [facility] TDAP Unknown Completed [facility] Influenza Virus Vaccine Quad ID 18-64 YRS Unknown Completed [facility] Influenza Virus Vaccine Quad IM 3+ YRS Unknown Completed [facility] Influenza Virus Vaccine Quad .5 mL IM 6+ MO (FLUZONE/FLULAVAL/F LUARIX) Unknown Completed [facility] Influenza Virus Vaccine Quad .5 mL IM 6+ MO (FLUZONE/FLULAVAL/F LUARIX) Unknown Completed [facility] Pneumococcal 13 Conjugate, PCV13 (Prevnar 13) Unknown Completed [facility] Influenza Virus Vaccine Quad .5 mL IM 6+ MO (FLUZONE/FLULAVAL/F LUARIX) Unknown Completed [facility] SARS-COV-2 COVID-19 PFIZER VACCINE Unknown Completed [facility] SARS-COV-2 COVID-19 PFIZER VACCINE Unknown Completed [facility] Pneumococcal Polysaccharide, PPSV23 (PNEUMOVAX) Unknown Completed [facility] Influenza Virus Vaccine,quad Im,preserve Free 65+ (FLUAD) Unknown Completed [facility] Influenza Virus Vaccine,quad Im,preserve Free 65+ (FLUAD) Unknown Completed [facility] Hep B, Adol or Pedi Dosage Unknown Completed [facility] Hep B, Adol or Pedi Dosage Unknown Completed [facility] Influenza Virus Vaccine Unknown Completed [facility] Pneumococcal Polysaccharide, PPSV23 (PNEUMOVAX) Unknown Completed [facility] H1n1 Vaccine Unknown Completed [facility] Hep B, Adol or Pedi Dosage Unknown Completed [facility] Influenza Virus Vaccine Unknown Completed [facility] Influenza Virus Vaccine Unknown Completed [facility] Influenza Virus Vaccine Unknown Completed [facility] Influenza Virus Vaccine Unknown Completed [facility] Influenza Virus Vaccine (3+ yrs) Unknown Completed [facility] Influenza Virus Vaccine Quad ID 18-64 YRS Unknown Completed [facility] Influenza Virus Vaccine Quad IM Multi-dose 6+ MO Unknown Completed [facility] TDAP Unknown Completed [facility] Influenza Virus Vaccine Quad ID 18-64 YRS Unknown Completed [facility] Influenza Virus Vaccine Quad IM 3+ YRS Unknown Completed [facility] Influenza Virus Vaccine Quad .5 mL IM 6+ MO (FLUZONE/FLULAVAL/F LUARIX) Unknown Completed [facility] Influenza Virus Vaccine Quad .5 mL IM 6+ MO (FLUZONE/FLULAVAL/F LUARIX) Unknown Completed [facility] Pneumococcal 13 Conjugate, PCV13 (Prevnar 13) Unknown Completed [facility] Influenza Virus Vaccine Quad .5 mL IM 6+ MO (FLUZONE/FLULAVAL/F LUARIX) Unknown Completed [facility] SARS-COV-2 COVID-19 PFIZER VACCINE Unknown Completed [facility] SARS-COV-2 COVID-19 PFIZER VACCINE Unknown Completed [facility] Pneumococcal Polysaccharide, PPSV23 (PNEUMOVAX) Unknown Completed [facility] Influenza Virus Vaccine,quad Im,preserve Free 65+ (FLUAD) Unknown Completed [facility] Influenza Virus Vaccine,quad Im,preserve Free 65+ (FLUAD) Unknown Completed [facility] Hep B, Adol or Pedi Dosage Unknown Completed [facility] Hep B, Adol or Pedi Dosage Unknown Completed [facility] Influenza Virus Vaccine Unknown Completed [facility] Pneumococcal Polysaccharide, PPSV23 (PNEUMOVAX) Unknown Completed [facility] H1n1 Vaccine Unknown Completed [facility] Hep B, Adol or Pedi Dosage Unknown Completed [facility] Influenza Virus Vaccine Unknown Completed [facility] Influenza Virus Vaccine Unknown Completed [facility] Influenza Virus Vaccine Unknown Completed [facility] Influenza Virus Vaccine Unknown Completed [facility] Influenza Virus Vaccine (3+ yrs) Unknown Completed [facility] Influenza Virus Vaccine Quad ID 18-64 YRS Unknown Completed [facility] Influenza Virus Vaccine Quad IM Multi-dose 6+ MO Unknown Completed [facility] TDAP Unknown Completed [facility] Influenza Virus Vaccine Quad ID 18-64 YRS Unknown Completed [facility] Influenza Virus Vaccine Quad IM 3+ YRS Unknown Completed [facility] Influenza Virus Vaccine Quad .5 mL IM 6+ MO (FLUZONE/FLULAVAL/F LUARIX) Unknown Completed [facility] Influenza Virus Vaccine Quad .5 mL IM 6+ MO (FLUZONE/FLULAVAL/F LUARIX) Unknown Completed [facility] Pneumococcal 13 Conjugate, PCV13 (Prevnar 13) Unknown Completed [facility] Influenza Virus Vaccine Quad .5 mL IM 6+ MO (FLUZONE/FLULAVAL/F LUARIX) Unknown Completed [facility] SARS-COV-2 COVID-19 PFIZER VACCINE Unknown Completed [facility] SARS-COV-2 COVID-19 PFIZER VACCINE Unknown Completed [facility] Pneumococcal Polysaccharide, PPSV23 (PNEUMOVAX) Unknown Completed [facility] Influenza Virus Vaccine,quad Im,preserve Free 65+ (FLUAD) Unknown Completed [facility] Influenza Virus Vaccine,quad Im,preserve Free 65+ (FLUAD) Unknown Completed [facility] Hep B, Adol or Pedi Dosage Unknown Completed [facility] Hep B, Adol or Pedi Dosage Unknown Completed [facility] Influenza Virus Vaccine Unknown Completed [facility] Pneumococcal Polysaccharide, PPSV23 (PNEUMOVAX) Unknown Completed [facility] H1n1 Vaccine Unknown Completed [facility] Hep B, Adol or Pedi Dosage Unknown Completed [facility] Influenza Virus Vaccine Unknown Completed [facility] Influenza Virus Vaccine Unknown Completed [facility] Influenza Virus Vaccine Unknown Completed [facility] Influenza Virus Vaccine Unknown Completed [facility] Influenza Virus Vaccine (3+ yrs) Unknown Completed [facility] Influenza Virus Vaccine Quad ID 18-64 YRS Unknown Completed [facility] Influenza Virus Vaccine Quad IM Multi-dose 6+ MO Unknown Completed [facility] TDAP Unknown Completed [facility] Influenza Virus Vaccine Quad ID 18-64 YRS Unknown Completed [facility] Influenza Virus Vaccine Quad IM 3+ YRS Unknown Completed [facility] Influenza Virus Vaccine Quad .5 mL IM 6+ MO (FLUZONE/FLULAVAL/F LUARIX) Unknown Completed [facility] Influenza Virus Vaccine Quad .5 mL IM 6+ MO (FLUZONE/FLULAVAL/F LUARIX) Unknown Completed [facility] Pneumococcal 13 Conjugate, PCV13 (Prevnar 13) Unknown Completed [facility] Influenza Virus Vaccine Quad .5 mL IM 6+ MO (FLUZONE/FLULAVAL/F LUARIX) Unknown Completed [facility] SARS-COV-2 COVID-19 PFIZER VACCINE Unknown Completed [facility] SARS-COV-2 COVID-19 PFIZER VACCINE Unknown Completed [facility] Pneumococcal Polysaccharide, PPSV23 (PNEUMOVAX) Unknown Completed [facility] Influenza Virus Vaccine,quad Im,preserve Free 65+ (FLUAD) Unknown Completed [facility] Influenza Virus Vaccine,quad Im,preserve Free 65+ (FLUAD) Unknown Completed [facility] Hep B, Adol or Pedi Dosage Unknown Completed [facility] Hep B, Adol or Pedi Dosage Unknown Completed [facility] Influenza Virus Vaccine Unknown Completed [facility] Pneumococcal Polysaccharide, PPSV23 (PNEUMOVAX) Unknown Completed [facility] H1n1 Vaccine Unknown Completed [facility] Hep B, Adol or Pedi Dosage Unknown Completed [facility] Influenza Virus Vaccine Unknown Completed [facility] Influenza Virus Vaccine Unknown Completed [facility] Influenza Virus Vaccine Unknown Completed [facility] Influenza Virus Vaccine Unknown Completed [facility] Influenza Virus Vaccine (3+ yrs) Unknown Completed [facility] Influenza Virus Vaccine Quad ID 18-64 YRS Unknown Completed [facility] Influenza Virus Vaccine Quad IM Multi-dose 6+ MO Unknown Completed [facility] TDAP Unknown Completed [facility] Influenza Virus Vaccine Quad ID 18-64 YRS Unknown Completed [facility] Influenza Virus Vaccine Quad IM 3+ YRS Unknown Completed [facility] Influenza Virus Vaccine Quad .5 mL IM 6+ MO (FLUZONE/FLULAVAL/F LUARIX) Unknown Completed [facility] Influenza Virus Vaccine Quad .5 mL IM 6+ MO (FLUZONE/FLULAVAL/F LUARIX) Unknown Completed [facility] Pneumococcal 13 Conjugate, PCV13 (Prevnar 13) Unknown Completed [facility] Influenza Virus Vaccine Quad .5 mL IM 6+ MO (FLUZONE/FLULAVAL/F LUARIX) Unknown Completed [facility] SARS-COV-2 COVID-19 PFIZER VACCINE Unknown Completed [facility] SARS-COV-2 COVID-19 PFIZER VACCINE Unknown Completed [facility] Pneumococcal Polysaccharide, PPSV23 (PNEUMOVAX) Unknown Completed [facility] Influenza Virus Vaccine,quad Im,preserve Free 65+ (FLUAD) Unknown Completed [facility] Influenza Virus Vaccine,quad Im,preserve Free 65+ (FLUAD) Unknown Completed [facility] Hep B, Adol or Pedi Dosage Unknown Completed [facility] Hep B, Adol or Pedi Dosage Unknown Completed [facility] Influenza Virus Vaccine Unknown Completed [facility] Pneumococcal Polysaccharide, PPSV23 (PNEUMOVAX) Unknown Completed [facility] H1n1 Vaccine Unknown Completed [facility] Hep B, Adol or Pedi Dosage Unknown Completed [facility] Influenza Virus Vaccine Unknown Completed [facility] Influenza Virus Vaccine Unknown Completed [facility] Influenza Virus Vaccine Unknown Completed [facility] Influenza Virus Vaccine Unknown Completed [facility] Influenza Virus Vaccine (3+ yrs) Unknown Completed [facility] Influenza Virus Vaccine Quad ID 18-64 YRS Unknown Completed [facility] Influenza Virus Vaccine Quad IM Multi-dose 6+ MO Unknown Completed [facility] TDAP Unknown Completed [facility] Influenza Virus Vaccine Quad ID 18-64 YRS Unknown Completed [facility] Influenza Virus Vaccine Quad IM 3+ YRS Unknown Completed [facility] Influenza Virus Vaccine Quad .5 mL IM 6+ MO (FLUZONE/FLULAVAL/F LUARIX) Unknown Completed [facility] Influenza Virus Vaccine Quad .5 mL IM 6+ MO (FLUZONE/FLULAVAL/F LUARIX) Unknown Completed [facility] Pneumococcal 13 Conjugate, PCV13 (Prevnar 13) Unknown Completed [facility] Influenza Virus Vaccine Quad .5 mL IM 6+ MO (FLUZONE/FLULAVAL/F LUARIX) Unknown Completed [facility] SARS-COV-2 COVID-19 PFIZER VACCINE Unknown Completed [facility] SARS-COV-2 COVID-19 PFIZER VACCINE Unknown Completed [facility] Pneumococcal Polysaccharide, PPSV23 (PNEUMOVAX) Unknown Completed [facility] Influenza Virus Vaccine,quad Im,preserve Free 65+ (FLUAD) Unknown Completed [facility] Influenza Virus Vaccine,quad Im,preserve Free 65+ (FLUAD) Unknown Completed [facility] Hep B, Adol or Pedi Dosage Unknown Completed [facility] Hep B, Adol or Pedi Dosage Unknown Completed [facility] Influenza Virus Vaccine Unknown Completed [facility] Pneumococcal Polysaccharide, PPSV23 (PNEUMOVAX) Unknown Completed [facility] H1n1 Vaccine Unknown Completed [facility] Hep B, Adol or Pedi Dosage Unknown Completed [facility] Influenza Virus Vaccine Unknown Completed [facility] Influenza Virus Vaccine Unknown Completed [facility] Influenza Virus Vaccine Unknown Completed [facility] Influenza Virus Vaccine Unknown Completed [facility] Influenza Virus Vaccine (3+ yrs) Unknown Completed [facility] Influenza Virus Vaccine Quad ID 18-64 YRS Unknown Completed [facility] Influenza Virus Vaccine Quad IM Multi-dose 6+ MO Unknown Completed [facility] TDAP Unknown Completed [facility] Influenza Virus Vaccine Quad ID 18-64 YRS Unknown Completed [facility] Influenza Virus Vaccine Quad IM 3+ YRS Unknown Completed [facility] Influenza Virus Vaccine Quad .5 mL IM 6+ MO (FLUZONE/FLULAVAL/F LUARIX) Unknown Completed [facility] Influenza Virus Vaccine Quad .5 mL IM 6+ MO (FLUZONE/FLULAVAL/F LUARIX) Unknown Completed [facility] Pneumococcal 13 Conjugate, PCV13 (Prevnar 13) Unknown Completed [facility] Influenza Virus Vaccine Quad .5 mL IM 6+ MO (FLUZONE/FLULAVAL/F LUARIX) Unknown Completed [facility] SARS-COV-2 COVID-19 PFIZER VACCINE Unknown Completed [facility] SARS-COV-2 COVID-19 PFIZER VACCINE Unknown Completed [facility] Pneumococcal Polysaccharide, PPSV23 (PNEUMOVAX) Unknown Completed [facility] Influenza Virus Vaccine,quad Im,preserve Free 65+ (FLUAD) Unknown Completed [facility] Influenza Virus Vaccine,quad Im,preserve Free 65+ (FLUAD) Unknown Completed [facility] Hep B, Adol or Pedi Dosage Unknown Completed [facility] Hep B, Adol or Pedi Dosage Unknown Completed [facility] Influenza Virus Vaccine Unknown Completed [facility] Pneumococcal Polysaccharide, PPSV23 (PNEUMOVAX) Unknown Completed [facility] H1n1 Vaccine Unknown Completed [facility] Hep B, Adol or Pedi Dosage Unknown Completed [facility] Influenza Virus Vaccine Unknown Completed [facility] Influenza Virus Vaccine Unknown Completed [facility] Influenza Virus Vaccine Unknown Completed [facility] Influenza Virus Vaccine Unknown Completed [facility] Influenza Virus Vaccine (3+ yrs) Unknown Completed [facility] Influenza Virus Vaccine Quad ID 18-64 YRS Unknown Completed [facility] Influenza Virus Vaccine Quad IM Multi-dose 6+ MO Unknown Completed [facility] TDAP Unknown Completed [facility] Influenza Virus Vaccine Quad ID 18-64 YRS Unknown Completed [facility] Influenza Virus Vaccine Quad IM 3+ YRS Unknown Completed [facility] Influenza Virus Vaccine Quad .5 mL IM 6+ MO (FLUZONE/FLULAVAL/F LUARIX) Unknown Completed [facility] Influenza Virus Vaccine Quad .5 mL IM 6+ MO (FLUZONE/FLULAVAL/F LUARIX) Unknown Completed [facility] Pneumococcal 13 Conjugate, PCV13 (Prevnar 13) Unknown Completed [facility] Influenza Virus Vaccine Quad .5 mL IM 6+ MO (FLUZONE/FLULAVAL/F LUARIX) Unknown Completed [facility] SARS-COV-2 COVID-19 PFIZER VACCINE Unknown Completed [facility] SARS-COV-2 COVID-19 PFIZER VACCINE Unknown Completed [facility] Pneumococcal Polysaccharide, PPSV23 (PNEUMOVAX) Unknown Completed [facility] Influenza Virus Vaccine,quad Im,preserve Free 65+ (FLUAD) Unknown Completed [facility] Influenza Virus Vaccine,quad Im,preserve Free 65+ (FLUAD) Unknown Completed [facility] Hep B, Adol or Pedi Dosage Unknown Completed [facility] Hep B, Adol or Pedi Dosage Unknown Completed [facility] Influenza Virus Vaccine Unknown Completed [facility] Pneumococcal Polysaccharide, PPSV23 (PNEUMOVAX) Unknown Completed [facility] H1n1 Vaccine Unknown Completed [facility] Hep B, Adol or Pedi Dosage Unknown Completed [facility] Influenza Virus Vaccine Unknown Completed [facility] Influenza Virus Vaccine Unknown Completed [facility] Influenza Virus Vaccine Unknown Completed [facility] Influenza Virus Vaccine Unknown Completed [facility] Influenza Virus Vaccine (3+ yrs) Unknown Completed [facility] Influenza Virus Vaccine Quad ID 18-64 YRS Unknown Completed [facility] Influenza Virus Vaccine Quad IM Multi-dose 6+ MO Unknown Completed [facility] TDAP Unknown Completed [facility] Influenza Virus Vaccine Quad ID 18-64 YRS Unknown Completed [facility] Influenza Virus Vaccine Quad IM 3+ YRS Unknown Completed [facility] Influenza Virus Vaccine Quad .5 mL IM 6+ MO (FLUZONE/FLULAVAL/F LUARIX) Unknown Completed [facility] Influenza Virus Vaccine Quad .5 mL IM 6+ MO (FLUZONE/FLULAVAL/F LUARIX) Unknown Completed [facility] Pneumococcal 13 Conjugate, PCV13 (Prevnar 13) Unknown Completed [facility] Influenza Virus Vaccine Quad .5 mL IM 6+ MO (FLUZONE/FLULAVAL/F LUARIX) Unknown Completed [facility] SARS-COV-2 COVID-19 PFIZER VACCINE Unknown Completed [facility] SARS-COV-2 COVID-19 PFIZER VACCINE Unknown Completed [facility] Pneumococcal Polysaccharide, PPSV23 (PNEUMOVAX) Unknown Completed [facility] Influenza Virus Vaccine,quad Im,preserve Free 65+ (FLUAD) Unknown Completed [facility] Influenza Virus Vaccine,quad Im,preserve Free 65+ (FLUAD) Unknown Completed [facility] Hep B, Adol or Pedi Dosage Unknown Completed [facility] Hep B, Adol or Pedi Dosage Unknown Completed [facility] Influenza Virus Vaccine Unknown Completed [facility] Pneumococcal Polysaccharide, PPSV23 (PNEUMOVAX) Unknown Completed [facility] H1n1 Vaccine Unknown Completed [facility] Hep B, Adol or Pedi Dosage Unknown Completed [facility] Influenza Virus Vaccine Unknown Completed [facility] Influenza Virus Vaccine Unknown Completed [facility] Influenza Virus Vaccine Unknown Completed [facility] Influenza Virus Vaccine Unknown Completed [facility] Influenza Virus Vaccine (3+ yrs) Unknown Completed [facility] Influenza Virus Vaccine Quad ID 18-64 YRS Unknown Completed [facility] Influenza Virus Vaccine Quad IM Multi-dose 6+ MO Unknown Completed [facility] TDAP Unknown Completed [facility] Influenza Virus Vaccine Quad ID 18-64 YRS Unknown Completed [facility] Influenza Virus Vaccine Quad IM 3+ YRS Unknown Completed [facility] Influenza Virus Vaccine Quad .5 mL IM 6+ MO (FLUZONE/FLULAVAL/F LUARIX) Unknown Completed [facility] Influenza Virus Vaccine Quad .5 mL IM 6+ MO (FLUZONE/FLULAVAL/F LUARIX) Unknown Completed [facility] Pneumococcal 13 Conjugate, PCV13 (Prevnar 13) Unknown Completed [facility] Influenza Virus Vaccine Quad .5 mL IM 6+ MO (FLUZONE/FLULAVAL/F LUARIX) Unknown Completed [facility] SARS-COV-2 COVID-19 PFIZER VACCINE Unknown Completed [facility] SARS-COV-2 COVID-19 PFIZER VACCINE Unknown Completed [facility] Pneumococcal Polysaccharide, PPSV23 (PNEUMOVAX) Unknown Completed [facility] Influenza Virus Vaccine,quad Im,preserve Free 65+ (FLUAD) Unknown Completed [facility] Influenza Virus Vaccine,quad Im,preserve Free 65+ (FLUAD) Unknown Completed [facility] Hep B, Adol or Pedi Dosage Unknown Completed [facility] Hep B, Adol or Pedi Dosage Unknown Completed [facility] Influenza Virus Vaccine Unknown Completed [facility] Pneumococcal Polysaccharide, PPSV23 (PNEUMOVAX) Unknown Completed [facility] H1n1 Vaccine Unknown Completed [facility] Hep B, Adol or Pedi Dosage Unknown Completed [facility] Influenza Virus Vaccine Unknown Completed [facility] Influenza Virus Vaccine Unknown Completed [facility] Influenza Virus Vaccine Unknown Completed [facility] Influenza Virus Vaccine Unknown Completed [facility] Influenza Virus Vaccine (3+ yrs) Unknown Completed [facility] Influenza Virus Vaccine Quad ID 18-64 YRS Unknown Completed [facility] Influenza Virus Vaccine Quad IM Multi-dose 6+ MO Unknown Completed [facility] TDAP Unknown Completed [facility] Influenza Virus Vaccine Quad ID 18-64 YRS Unknown Completed [facility] Influenza Virus Vaccine Quad IM 3+ YRS Unknown Completed [facility] Influenza Virus Vaccine Quad .5 mL IM 6+ MO (FLUZONE/FLULAVAL/F LUARIX) Unknown Completed [facility] Influenza Virus Vaccine Quad .5 mL IM 6+ MO (FLUZONE/FLULAVAL/F LUARIX) Unknown Completed [facility] Pneumococcal 13 Conjugate, PCV13 (Prevnar 13) Unknown Completed [facility] Influenza Virus Vaccine Quad .5 mL IM 6+ MO (FLUZONE/FLULAVAL/F LUARIX) Unknown Completed [facility] SARS-COV-2 COVID-19 PFIZER VACCINE Unknown Completed [facility] SARS-COV-2 COVID-19 PFIZER VACCINE Unknown Completed [facility] Pneumococcal Polysaccharide, PPSV23 (PNEUMOVAX) Unknown Completed [facility] Influenza Virus Vaccine,quad Im,preserve Free 65+ (FLUAD) Unknown Completed [facility] Influenza Virus Vaccine,quad Im,preserve Free 65+ (FLUAD) Unknown Completed [facility] Hep B, Adol or Pedi Dosage Unknown Completed [facility] Hep B, Adol or Pedi Dosage Unknown Completed [facility] Influenza Virus Vaccine Unknown Completed [facility] Pneumococcal Polysaccharide, PPSV23 (PNEUMOVAX) Unknown Completed [facility] H1n1 Vaccine Unknown Completed [facility] Hep B, Adol or Pedi Dosage Unknown Completed [facility] Influenza Virus Vaccine Unknown Completed [facility] Influenza Virus Vaccine Unknown Completed [facility] Influenza Virus Vaccine Unknown Completed [facility] Influenza Virus Vaccine Unknown Completed [facility] Influenza Virus Vaccine (3+ yrs) Unknown Completed [facility] Influenza Virus Vaccine Quad ID 18-64 YRS Unknown Completed [facility] Influenza Virus Vaccine Quad IM Multi-dose 6+ MO Unknown Completed [facility] TDAP Unknown Completed [facility] Influenza Virus Vaccine Quad ID 18-64 YRS Unknown Completed [facility] Influenza Virus Vaccine Quad IM 3+ YRS Unknown Completed [facility] Influenza Virus Vaccine Quad .5 mL IM 6+ MO (FLUZONE/FLULAVAL/F LUARIX) Unknown Completed [facility] Influenza Virus Vaccine Quad .5 mL IM 6+ MO (FLUZONE/FLULAVAL/F LUARIX) Unknown Completed [facility] Pneumococcal 13 Conjugate, PCV13 (Prevnar 13) Unknown Completed [facility] Influenza Virus Vaccine Quad .5 mL IM 6+ MO (FLUZONE/FLULAVAL/F LUARIX) Unknown Completed [facility] SARS-COV-2 COVID-19 PFIZER VACCINE Unknown Completed [facility] SARS-COV-2 COVID-19 PFIZER VACCINE Unknown Completed [facility] Pneumococcal Polysaccharide, PPSV23 (PNEUMOVAX) Unknown Completed [facility] Influenza Virus Vaccine,quad Im,preserve Free 65+ (FLUAD) Unknown Completed [facility] Influenza Virus Vaccine,quad Im,preserve Free 65+ (FLUAD) Unknown Completed [facility] Hep B, Adol or Pedi Dosage Unknown Completed [facility] Hep B, Adol or Pedi Dosage Unknown Completed [facility] Influenza Virus Vaccine Unknown Completed [facility] Pneumococcal Polysaccharide, PPSV23 (PNEUMOVAX) Unknown Completed [facility] H1n1 Vaccine Unknown Completed [facility] Hep B, Adol or Pedi Dosage Unknown Completed [facility] Influenza Virus Vaccine Unknown Completed [facility] Influenza Virus Vaccine Unknown Completed [facility] Influenza Virus Vaccine Unknown Completed [facility] Influenza Virus Vaccine Unknown Completed [facility] Influenza Virus Vaccine (3+ yrs) Unknown Completed [facility] Influenza Virus Vaccine Quad ID 18-64 YRS Unknown Completed [facility] Influenza Virus Vaccine Quad IM Multi-dose 6+ MO Unknown Completed [facility] TDAP Unknown Completed [facility] Influenza Virus Vaccine Quad ID 18-64 YRS Unknown Completed [facility] Influenza Virus Vaccine Quad IM 3+ YRS Unknown Completed [facility] Influenza Virus Vaccine Quad .5 mL IM 6+ MO (FLUZONE/FLULAVAL/F LUARIX) Unknown Completed [facility] Influenza Virus Vaccine Quad .5 mL IM 6+ MO (FLUZONE/FLULAVAL/F LUARIX) Unknown Completed [facility] Pneumococcal 13 Conjugate, PCV13 (Prevnar 13) Unknown Completed [facility] Influenza Virus Vaccine Quad .5 mL IM 6+ MO (FLUZONE/FLULAVAL/F LUARIX) Unknown Completed [facility] SARS-COV-2 COVID-19 PFIZER VACCINE Unknown Completed [facility] SARS-COV-2 COVID-19 PFIZER VACCINE Unknown Completed [facility] Pneumococcal Polysaccharide, PPSV23 (PNEUMOVAX) Unknown Completed [facility] Influenza Virus Vaccine,quad Im,preserve Free 65+ (FLUAD) Unknown Completed [facility] Influenza Virus Vaccine,quad Im,preserve Free 65+ (FLUAD) Unknown Completed [facility] Hep B, Adol or Pedi Dosage Unknown Completed [facility] Hep B, Adol or Pedi Dosage Unknown Completed [facility] Influenza Virus Vaccine Unknown Completed [facility] Pneumococcal Polysaccharide, PPSV23 (PNEUMOVAX) Unknown Completed [facility] H1n1 Vaccine Unknown Completed [facility] Hep B, Adol or Pedi Dosage Unknown Completed [facility] Influenza Virus Vaccine Unknown Completed [facility] Influenza Virus Vaccine Unknown Completed [facility] Influenza Virus Vaccine Unknown Completed [facility] Influenza Virus Vaccine Unknown Completed [facility] Influenza Virus Vaccine (3+ yrs) Unknown Completed [facility] Influenza Virus Vaccine Quad ID 18-64 YRS Unknown Completed [facility] Influenza Virus Vaccine Quad IM Multi-dose 6+ MO Unknown Completed [facility] TDAP Unknown Completed [facility] Influenza Virus Vaccine Quad ID 18-64 YRS Unknown Completed [facility] Influenza Virus Vaccine Quad IM 3+ YRS Unknown Completed [facility] Influenza Virus Vaccine Quad .5 mL IM 6+ MO (FLUZONE/FLULAVAL/F LUARIX) Unknown Completed [facility] Influenza Virus Vaccine Quad .5 mL IM 6+ MO (FLUZONE/FLULAVAL/F LUARIX) Unknown Completed [facility] Pneumococcal 13 Conjugate, PCV13 (Prevnar 13) Unknown Completed [facility] Influenza Virus Vaccine Quad .5 mL IM 6+ MO (FLUZONE/FLULAVAL/F LUARIX) Unknown Completed [facility] SARS-COV-2 COVID-19 PFIZER VACCINE Unknown Completed [facility] SARS-COV-2 COVID-19 PFIZER VACCINE Unknown Completed [facility] Pneumococcal Polysaccharide, PPSV23 (PNEUMOVAX) Unknown Completed [facility] Influenza Virus Vaccine,quad Im,preserve Free 65+ (FLUAD) Unknown Completed [facility] Influenza Virus Vaccine,quad Im,preserve Free 65+ (FLUAD) Unknown Completed [facility] Hep B, Adol or Pedi Dosage Unknown Completed [facility] Hep B, Adol or Pedi Dosage Unknown Completed [facility] Influenza Virus Vaccine Unknown Completed [facility] Pneumococcal Polysaccharide, PPSV23 (PNEUMOVAX) Unknown Completed [facility] H1n1 Vaccine Unknown Completed [facility] Hep B, Adol or Pedi Dosage Unknown Completed [facility] Influenza Virus Vaccine Unknown Completed [facility] Influenza Virus Vaccine Unknown Completed [facility] Influenza Virus Vaccine Unknown Completed [facility] Influenza Virus Vaccine Unknown Completed [facility] Influenza Virus Vaccine (3+ yrs) Unknown Completed [facility] Influenza Virus Vaccine Quad ID 18-64 YRS Unknown Completed [facility] Influenza Virus Vaccine Quad IM Multi-dose 6+ MO Unknown Completed [facility] TDAP Unknown Completed [facility] Influenza Virus Vaccine Quad ID 18-64 YRS Unknown Completed [facility] Influenza Virus Vaccine Quad IM 3+ YRS Unknown Completed [facility] Influenza Virus Vaccine Quad .5 mL IM 6+ MO (FLUZONE/FLULAVAL/F LUARIX) Unknown Completed [facility] Influenza Virus Vaccine Quad .5 mL IM 6+ MO (FLUZONE/FLULAVAL/F LUARIX) Unknown Completed [facility] Pneumococcal 13 Conjugate, PCV13 (Prevnar 13) Unknown Completed [facility] Influenza Virus Vaccine Quad .5 mL IM 6+ MO (FLUZONE/FLULAVAL/F LUARIX) Unknown Completed [facility] SARS-COV-2 COVID-19 PFIZER VACCINE Unknown Completed [facility] SARS-COV-2 COVID-19 PFIZER VACCINE Unknown Completed [facility] Pneumococcal Polysaccharide, PPSV23 (PNEUMOVAX) Unknown Completed [facility] Influenza Virus Vaccine,quad Im,preserve Free 65+ (FLUAD) Unknown Completed [facility] Influenza Virus Vaccine,quad Im,preserve Free 65+ (FLUAD) Unknown Completed [facility] Hep B, Adol or Pedi Dosage Unknown Completed [facility] Hep B, Adol or Pedi Dosage Unknown Completed [facility] Influenza Virus Vaccine Unknown Completed [facility] Pneumococcal Polysaccharide, PPSV23 (PNEUMOVAX) Unknown Completed [facility] H1n1 Vaccine Unknown Completed [facility] Hep B, Adol or Pedi Dosage Unknown Completed [facility] Influenza Virus Vaccine Unknown Completed [facility] Influenza Virus Vaccine Unknown Completed [facility] Influenza Virus Vaccine Unknown Completed [facility] Influenza Virus Vaccine Unknown Completed [facility] Influenza Virus Vaccine (3+ yrs) Unknown Completed [facility] Influenza Virus Vaccine Quad ID 18-64 YRS Unknown Completed [facility] Influenza Virus Vaccine Quad IM Multi-dose 6+ MO Unknown Completed [facility] TDAP Unknown Completed [facility] Influenza Virus Vaccine Quad ID 18-64 YRS Unknown Completed [facility] Influenza Virus Vaccine Quad IM 3+ YRS Unknown Completed [facility] Influenza Virus Vaccine Quad .5 mL IM 6+ MO (FLUZONE/FLULAVAL/F LUARIX) Unknown Completed [facility] Influenza Virus Vaccine Quad .5 mL IM 6+ MO (FLUZONE/FLULAVAL/F LUARIX) Unknown Completed [facility] Pneumococcal 13 Conjugate, PCV13 (Prevnar 13) Unknown Completed [facility] Influenza Virus Vaccine Quad .5 mL IM 6+ MO (FLUZONE/FLULAVAL/F LUARIX) Unknown Completed [facility] SARS-COV-2 COVID-19 PFIZER VACCINE Unknown Completed [facility] SARS-COV-2 COVID-19 PFIZER VACCINE Unknown Completed [facility] Pneumococcal Polysaccharide, PPSV23 (PNEUMOVAX) Unknown Completed [facility] Influenza Virus Vaccine,quad Im,preserve Free 65+ (FLUAD) Unknown Completed [facility] Influenza Virus Vaccine,quad Im,preserve Free 65+ (FLUAD) Unknown Completed [facility] Hep B, Adol or Pedi Dosage Unknown Completed [facility] Hep B, Adol or Pedi Dosage Unknown Completed [facility] Influenza Virus Vaccine Unknown Completed [facility] Pneumococcal Polysaccharide, PPSV23 (PNEUMOVAX) Unknown Completed [facility] H1n1 Vaccine Unknown Completed [facility] Hep B, Adol or Pedi Dosage Unknown Completed [facility] Influenza Virus Vaccine Unknown Completed [facility] Influenza Virus Vaccine Unknown Completed [facility] Influenza Virus Vaccine Unknown Completed [facility] Influenza Virus Vaccine Unknown Completed [facility] Influenza Virus Vaccine (3+ yrs) Unknown Completed [facility] Influenza Virus Vaccine Quad ID 18-64 YRS Unknown Completed [facility] Influenza Virus Vaccine Quad IM Multi-dose 6+ MO Unknown Completed [facility] TDAP Unknown Completed [facility] Influenza Virus Vaccine Quad ID 18-64 YRS Unknown Completed [facility] Influenza Virus Vaccine Quad IM 3+ YRS Unknown Completed [facility] Influenza Virus Vaccine Quad .5 mL IM 6+ MO (FLUZONE/FLULAVAL/F LUARIX) Unknown Completed [facility] Influenza Virus Vaccine Quad .5 mL IM 6+ MO (FLUZONE/FLULAVAL/F LUARIX) Unknown Completed [facility] Pneumococcal 13 Conjugate, PCV13 (Prevnar 13) Unknown Completed [facility] Influenza Virus Vaccine Quad .5 mL IM 6+ MO (FLUZONE/FLULAVAL/F LUARIX) Unknown Completed [facility] SARS-COV-2 COVID-19 PFIZER VACCINE Unknown Completed [facility] SARS-COV-2 COVID-19 PFIZER VACCINE Unknown Completed [facility] Pneumococcal Polysaccharide, PPSV23 (PNEUMOVAX) Unknown Completed [facility] Influenza Virus Vaccine,quad Im,preserve Free 65+ (FLUAD) Unknown Completed [facility] Influenza Virus Vaccine,quad Im,preserve Free 65+ (FLUAD) Unknown Completed [facility] Hep B, Adol or Pedi Dosage Unknown Completed [facility] Hep B, Adol or Pedi Dosage Unknown Completed [facility] Influenza Virus Vaccine Unknown Completed [facility] Pneumococcal Polysaccharide, PPSV23 (PNEUMOVAX) Unknown Completed [facility] H1n1 Vaccine Unknown Completed [facility] Hep B, Adol or Pedi Dosage Unknown Completed [facility] Influenza Virus Vaccine Unknown Completed [facility] Influenza Virus Vaccine Unknown Completed [facility] Influenza Virus Vaccine Unknown Completed [facility] Influenza Virus Vaccine Unknown Completed [facility] Influenza Virus Vaccine (3+ yrs) Unknown Completed [facility] Influenza Virus Vaccine Quad ID 18-64 YRS Unknown Completed [facility] Influenza Virus Vaccine Quad IM Multi-dose 6+ MO Unknown Completed [facility] TDAP Unknown Completed [facility] Influenza Virus Vaccine Quad ID 18-64 YRS Unknown Completed [facility] Influenza Virus Vaccine Quad IM 3+ YRS Unknown Completed [facility] Influenza Virus Vaccine Quad .5 mL IM 6+ MO (FLUZONE/FLULAVAL/F LUARIX) Unknown Completed [facility] Influenza Virus Vaccine Quad .5 mL IM 6+ MO (FLUZONE/FLULAVAL/F LUARIX) Unknown Completed [facility] Pneumococcal 13 Conjugate, PCV13 (Prevnar 13) Unknown Completed [facility] Influenza Virus Vaccine Quad .5 mL IM 6+ MO (FLUZONE/FLULAVAL/F LUARIX) Unknown Completed [facility] SARS-COV-2 COVID-19 PFIZER VACCINE Unknown Completed [facility] SARS-COV-2 COVID-19 PFIZER VACCINE Unknown Completed [facility] Pneumococcal Polysaccharide, PPSV23 (PNEUMOVAX) Unknown Completed [facility] Influenza Virus Vaccine,quad Im,preserve Free 65+ (FLUAD) Unknown Completed [facility] Influenza Virus Vaccine,quad Im,preserve Free 65+ (FLUAD) Unknown Completed [facility] Hep B, Adol or Pedi Dosage Unknown Completed [facility] Hep B, Adol or Pedi Dosage Unknown Completed [facility] Influenza Virus Vaccine Unknown Completed [facility] Pneumococcal Polysaccharide, PPSV23 (PNEUMOVAX) Unknown Completed [facility] H1n1 Vaccine Unknown Completed [facility] Hep B, Adol or Pedi Dosage Unknown Completed [facility] Influenza Virus Vaccine Unknown Completed [facility] Influenza Virus Vaccine Unknown Completed [facility] Influenza Virus Vaccine Unknown Completed [facility] Influenza Virus Vaccine Unknown Completed [facility] Influenza Virus Vaccine (3+ yrs) Unknown Completed [facility] Influenza Virus Vaccine Quad ID 18-64 YRS Unknown Completed [facility] Influenza Virus Vaccine Quad IM Multi-dose 6+ MO Unknown Completed [facility] TDAP Unknown Completed [facility] Influenza Virus Vaccine Quad ID 18-64 YRS Unknown Completed [facility] Influenza Virus Vaccine Quad IM 3+ YRS Unknown Completed [facility] Influenza Virus Vaccine Quad .5 mL IM 6+ MO (FLUZONE/FLULAVAL/F LUARIX) Unknown Completed [facility] Influenza Virus Vaccine Quad .5 mL IM 6+ MO (FLUZONE/FLULAVAL/F LUARIX) Unknown Completed [facility] Pneumococcal 13 Conjugate, PCV13 (Prevnar 13) Unknown Completed [facility] Influenza Virus Vaccine Quad .5 mL IM 6+ MO (FLUZONE/FLULAVAL/F LUARIX) Unknown Completed [facility] SARS-COV-2 COVID-19 PFIZER VACCINE Unknown Completed [facility] SARS-COV-2 COVID-19 PFIZER VACCINE Unknown Completed [facility] Pneumococcal Polysaccharide, PPSV23 (PNEUMOVAX) Unknown Completed [facility] Influenza Virus Vaccine,quad Im,preserve Free 65+ (FLUAD) Unknown Completed [facility] Influenza Virus Vaccine,quad Im,preserve Free 65+ (FLUAD) Unknown Completed [facility] Hep B, Adol or Pedi Dosage Unknown Completed [facility] Hep B, Adol or Pedi Dosage Unknown Completed [facility] Influenza Virus Vaccine Unknown Completed [facility] Pneumococcal Polysaccharide, PPSV23 (PNEUMOVAX) Unknown Completed [facility] H1n1 Vaccine Unknown Completed [facility] Hep B, Adol or Pedi Dosage Unknown Completed [facility] Influenza Virus Vaccine Unknown Completed [facility] Influenza Virus Vaccine Unknown Completed [facility] Influenza Virus Vaccine Unknown Completed [facility] Influenza Virus Vaccine Unknown Completed [facility] Influenza Virus Vaccine (3+ yrs) Unknown Completed [facility] Influenza Virus Vaccine Quad ID 18-64 YRS Unknown Completed [facility] Influenza Virus Vaccine Quad IM Multi-dose 6+ MO Unknown Completed [facility] TDAP Unknown Completed [facility] Influenza Virus Vaccine Quad ID 18-64 YRS Unknown Completed [facility] Influenza Virus Vaccine Quad IM 3+ YRS Unknown Completed [facility] Influenza Virus Vaccine Quad .5 mL IM 6+ MO (FLUZONE/FLULAVAL/F LUARIX) Unknown Completed [facility] Influenza Virus Vaccine Quad .5 mL IM 6+ MO (FLUZONE/FLULAVAL/F LUARIX) Unknown Completed [facility] Pneumococcal 13 Conjugate, PCV13 (Prevnar 13) Unknown Completed [facility] Influenza Virus Vaccine Quad .5 mL IM 6+ MO (FLUZONE/FLULAVAL/F LUARIX) Unknown Completed [facility] SARS-COV-2 COVID-19 PFIZER VACCINE Unknown Completed [facility] SARS-COV-2 COVID-19 PFIZER VACCINE Unknown Completed [facility] Pneumococcal Polysaccharide, PPSV23 (PNEUMOVAX) Unknown Completed [facility] Influenza Virus Vaccine,quad Im,preserve Free 65+ (FLUAD) Unknown Completed [facility] Influenza Virus Vaccine,quad Im,preserve Free 65+ (FLUAD) Unknown Completed [facility] Hep B, Adol or Pedi Dosage Unknown Completed [facility] Hep B, Adol or Pedi Dosage Unknown Completed [facility] Influenza Virus Vaccine Unknown Completed [facility] Pneumococcal Polysaccharide, PPSV23 (PNEUMOVAX) Unknown Completed [facility] H1n1 Vaccine Unknown Completed [facility] Hep B, Adol or Pedi Dosage Unknown Completed [facility] Influenza Virus Vaccine Unknown Completed [facility] Influenza Virus Vaccine Unknown Completed [facility] Influenza Virus Vaccine Unknown Completed [facility] Influenza Virus Vaccine Unknown Completed [facility] Influenza Virus Vaccine (3+ yrs) Unknown Completed [facility] Influenza Virus Vaccine Quad ID 18-64 YRS Unknown Completed [facility] Influenza Virus Vaccine Quad IM Multi-dose 6+ MO Unknown Completed [facility] TDAP Unknown Completed [facility] Influenza Virus Vaccine Quad ID 18-64 YRS Unknown Completed [facility] Influenza Virus Vaccine Quad IM 3+ YRS Unknown Completed [facility] Influenza Virus Vaccine Quad .5 mL IM 6+ MO (FLUZONE/FLULAVAL/F LUARIX) Unknown Completed [facility] Influenza Virus Vaccine Quad .5 mL IM 6+ MO (FLUZONE/FLULAVAL/F LUARIX) Unknown Completed [facility] Pneumococcal 13 Conjugate, PCV13 (Prevnar 13) Unknown Completed [facility] Influenza Virus Vaccine Quad .5 mL IM 6+ MO (FLUZONE/FLULAVAL/F LUARIX) Unknown Completed [facility] SARS-COV-2 COVID-19 PFIZER VACCINE Unknown Completed [facility] SARS-COV-2 COVID-19 PFIZER VACCINE Unknown Completed [facility] Pneumococcal Polysaccharide, PPSV23 (PNEUMOVAX) Unknown Completed [facility] Influenza Virus Vaccine,quad Im,preserve Free 65+ (FLUAD) Unknown Completed [facility] Influenza Virus Vaccine,quad Im,preserve Free 65+ (FLUAD) Unknown Completed [facility] Hep B, Adol or Pedi Dosage Unknown Completed [facility] Hep B, Adol or Pedi Dosage Unknown Completed [facility] Influenza Virus Vaccine Unknown Completed [facility] Pneumococcal Polysaccharide, PPSV23 (PNEUMOVAX) Unknown Completed [facility] H1n1 Vaccine Unknown Completed [facility] Hep B, Adol or Pedi Dosage Unknown Completed [facility] Influenza Virus Vaccine Unknown Completed [facility] Influenza Virus Vaccine Unknown Completed [facility] Influenza Virus Vaccine Unknown Completed [facility] Influenza Virus Vaccine Unknown Completed [facility] Influenza Virus Vaccine (3+ yrs) Unknown Completed [facility] Influenza Virus Vaccine Quad ID 18-64 YRS Unknown Completed [facility] Influenza Virus Vaccine Quad IM Multi-dose 6+ MO Unknown Completed [facility] TDAP Unknown Completed [facility] Influenza Virus Vaccine Quad ID 18-64 YRS Unknown Completed [facility] Influenza Virus Vaccine Quad IM 3+ YRS Unknown Completed [facility] Influenza Virus Vaccine Quad .5 mL IM 6+ MO (FLUZONE/FLULAVAL/F LUARIX) Unknown Completed [facility] Influenza Virus Vaccine Quad .5 mL IM 6+ MO (FLUZONE/FLULAVAL/F LUARIX) Unknown Completed [facility] Pneumococcal 13 Conjugate, PCV13 (Prevnar 13) Unknown Completed [facility] Influenza Virus Vaccine Quad .5 mL IM 6+ MO (FLUZONE/FLULAVAL/F LUARIX) Unknown Completed [facility] SARS-COV-2 COVID-19 PFIZER VACCINE Unknown Completed [facility] SARS-COV-2 COVID-19 PFIZER VACCINE Unknown Completed [facility] Pneumococcal Polysaccharide, PPSV23 (PNEUMOVAX) Unknown Completed [facility] Influenza Virus Vaccine,quad Im,preserve Free 65+ (FLUAD) Unknown Completed [facility] Influenza Virus Vaccine,quad Im,preserve Free 65+ (FLUAD) Unknown Completed [facility] Hep B, Adol or Pedi Dosage Unknown Completed [facility] Hep B, Adol or Pedi Dosage Unknown Completed [facility] Influenza Virus Vaccine Unknown Completed [facility] Pneumococcal Polysaccharide, PPSV23 (PNEUMOVAX) Unknown Completed [facility] H1n1 Vaccine Unknown Completed [facility] Hep B, Adol or Pedi Dosage Unknown Completed [facility] Influenza Virus Vaccine Unknown Completed [facility] Influenza Virus Vaccine Unknown Completed [facility] Influenza Virus Vaccine Unknown Completed [facility] Influenza Virus Vaccine Unknown Completed [facility] Influenza Virus Vaccine (3+ yrs) Unknown Completed [facility] Influenza Virus Vaccine Quad ID 18-64 YRS Unknown Completed [facility] Influenza Virus Vaccine Quad IM Multi-dose 6+ MO Unknown Completed [facility] TDAP Unknown Completed [facility] Influenza Virus Vaccine Quad ID 18-64 YRS Unknown Completed [facility] Influenza Virus Vaccine Quad IM 3+ YRS Unknown Completed [facility] Influenza Virus Vaccine Quad .5 mL IM 6+ MO (FLUZONE/FLULAVAL/F LUARIX) Unknown Completed [facility] Influenza Virus Vaccine Quad .5 mL IM 6+ MO (FLUZONE/FLULAVAL/F LUARIX) Unknown Completed [facility] Pneumococcal 13 Conjugate, PCV13 (Prevnar 13) Unknown Completed [facility] Influenza Virus Vaccine Quad .5 mL IM 6+ MO (FLUZONE/FLULAVAL/F LUARIX) Unknown Completed [facility] SARS-COV-2 COVID-19 PFIZER VACCINE Unknown Completed [facility] SARS-COV-2 COVID-19 PFIZER VACCINE Unknown Completed [facility] Pneumococcal Polysaccharide, PPSV23 (PNEUMOVAX) Unknown Completed [facility] Influenza Virus Vaccine,quad Im,preserve Free 65+ (FLUAD) Unknown Completed [facility] Influenza Virus Vaccine,quad Im,preserve Free 65+ (FLUAD) Unknown Completed [facility] Hep B, Adol or Pedi Dosage Unknown Completed [facility] Hep B, Adol or Pedi Dosage Unknown Completed [facility] Influenza Virus Vaccine Unknown Completed [facility] Pneumococcal Polysaccharide, PPSV23 (PNEUMOVAX) Unknown Completed [facility] H1n1 Vaccine Unknown Completed [facility] Hep B, Adol or Pedi Dosage Unknown Completed [facility] Influenza Virus Vaccine Unknown Completed [facility] Influenza Virus Vaccine Unknown Completed [facility] Influenza Virus Vaccine Unknown Completed [facility] Influenza Virus Vaccine Unknown Completed [facility] Influenza Virus Vaccine (3+ yrs) Unknown Completed [facility] Influenza Virus Vaccine Quad ID 18-64 YRS Unknown Completed [facility] Influenza Virus Vaccine Quad IM Multi-dose 6+ MO Unknown Completed [facility] TDAP Unknown Completed [facility] Influenza Virus Vaccine Quad ID 18-64 YRS Unknown Completed [facility] Influenza Virus Vaccine Quad IM 3+ YRS Unknown Completed [facility] Influenza Virus Vaccine Quad .5 mL IM 6+ MO (FLUZONE/FLULAVAL/F LUARIX) Unknown Completed [facility] Influenza Virus Vaccine Quad .5 mL IM 6+ MO (FLUZONE/FLULAVAL/F LUARIX) Unknown Completed [facility] Pneumococcal 13 Conjugate, PCV13 (Prevnar 13) Unknown Completed [facility] Influenza Virus Vaccine Quad .5 mL IM 6+ MO (FLUZONE/FLULAVAL/F LUARIX) Unknown Completed [facility] SARS-COV-2 COVID-19 PFIZER VACCINE Unknown Completed [facility] SARS-COV-2 COVID-19 PFIZER VACCINE Unknown Completed [facility] Pneumococcal Polysaccharide, PPSV23 (PNEUMOVAX) Unknown Completed [facility] Influenza Virus Vaccine,quad Im,preserve Free 65+ (FLUAD) Unknown Completed [facility] Influenza Virus Vaccine,quad Im,preserve Free 65+ (FLUAD) Unknown Completed [facility] Hep B, Adol or Pedi Dosage Unknown Completed [facility] Hep B, Adol or Pedi Dosage Unknown Completed [facility] Influenza Virus Vaccine Unknown Completed [facility] Pneumococcal Polysaccharide, PPSV23 (PNEUMOVAX) Unknown Completed [facility] H1n1 Vaccine Unknown Completed [facility] Hep B, Adol or Pedi Dosage Unknown Completed [facility] Influenza Virus Vaccine Unknown Completed [facility] Influenza Virus Vaccine Unknown Completed [facility] Influenza Virus Vaccine Unknown Completed [facility] Influenza Virus Vaccine Unknown Completed [facility] Influenza Virus Vaccine (3+ yrs) Unknown Completed [facility] Influenza Virus Vaccine Quad ID 18-64 YRS Unknown Completed [facility] Influenza Virus Vaccine Quad IM Multi-dose 6+ MO Unknown Completed [facility] TDAP Unknown Completed [facility] Influenza Virus Vaccine Quad ID 18-64 YRS Unknown Completed [facility] Influenza Virus Vaccine Quad IM 3+ YRS Unknown Completed [facility] Influenza Virus Vaccine Quad .5 mL IM 6+ MO (FLUZONE/FLULAVAL/F LUARIX) Unknown Completed [facility] Influenza Virus Vaccine Quad .5 mL IM 6+ MO (FLUZONE/FLULAVAL/F LUARIX) Unknown Completed [facility] Pneumococcal 13 Conjugate, PCV13 (Prevnar 13) Unknown Completed [facility] Influenza Virus Vaccine Quad .5 mL IM 6+ MO (FLUZONE/FLULAVAL/F LUARIX) Unknown Completed [facility] SARS-COV-2 COVID-19 PFIZER VACCINE Unknown Completed [facility] SARS-COV-2 COVID-19 PFIZER VACCINE Unknown Completed [facility] Pneumococcal Polysaccharide, PPSV23 (PNEUMOVAX) Unknown Completed [facility] Influenza Virus Vaccine,quad Im,preserve Free 65+ (FLUAD) Unknown Completed [facility] Influenza Virus Vaccine,quad Im,preserve Free 65+ (FLUAD) Unknown Completed [facility] Hep B, Adol or Pedi Dosage Unknown Completed [facility] Hep B, Adol or Pedi Dosage Unknown Completed [facility] Influenza Virus Vaccine Unknown Completed [facility] Pneumococcal Polysaccharide, PPSV23 (PNEUMOVAX) Unknown Completed [facility] H1n1 Vaccine Unknown Completed [facility] Hep B, Adol or Pedi Dosage Unknown Completed [facility] Influenza Virus Vaccine Unknown Completed [facility] Influenza Virus Vaccine Unknown Completed [facility] Influenza Virus Vaccine Unknown Completed [facility] Influenza Virus Vaccine Unknown Completed [facility] Influenza Virus Vaccine (3+ yrs) Unknown Completed [facility] Influenza Virus Vaccine Quad ID 18-64 YRS Unknown Completed [facility] Influenza Virus Vaccine Quad IM Multi-dose 6+ MO Unknown Completed [facility] TDAP Unknown Completed [facility] Influenza Virus Vaccine Quad ID 18-64 YRS Unknown Completed [facility] Influenza Virus Vaccine Quad IM 3+ YRS Unknown Completed [facility] Influenza Virus Vaccine Quad .5 mL IM 6+ MO (FLUZONE/FLULAVAL/F LUARIX) Unknown Completed [facility] Influenza Virus Vaccine Quad .5 mL IM 6+ MO (FLUZONE/FLULAVAL/F LUARIX) Unknown Completed [facility] Pneumococcal 13 Conjugate, PCV13 (Prevnar 13) Unknown Completed [facility] Influenza Virus Vaccine Quad .5 mL IM 6+ MO (FLUZONE/FLULAVAL/F LUARIX) Unknown Completed [facility] SARS-COV-2 COVID-19 PFIZER VACCINE Unknown Completed [facility] SARS-COV-2 COVID-19 PFIZER VACCINE Unknown Completed [facility] Pneumococcal Polysaccharide, PPSV23 (PNEUMOVAX) Unknown Completed [facility] Influenza Virus Vaccine,quad Im,preserve Free 65+ (FLUAD) Unknown Completed [facility] Influenza Virus Vaccine,quad Im,preserve Free 65+ (FLUAD) Unknown Completed [facility] Hep B, Adol or Pedi Dosage Unknown Completed [facility] Hep B, Adol or Pedi Dosage Unknown Completed [facility] Influenza Virus Vaccine Unknown Completed [facility] Pneumococcal Polysaccharide, PPSV23 (PNEUMOVAX) Unknown Completed [facility] H1n1 Vaccine Unknown Completed [facility] Hep B, Adol or Pedi Dosage Unknown Completed [facility] Influenza Virus Vaccine Unknown Completed [facility] Influenza Virus Vaccine Unknown Completed [facility] Influenza Virus Vaccine Unknown Completed [facility] Influenza Virus Vaccine Unknown Completed [facility] Influenza Virus Vaccine (3+ yrs) Unknown Completed [facility] Influenza Virus Vaccine Quad ID 18-64 YRS Unknown Completed [facility] Influenza Virus Vaccine Quad IM Multi-dose 6+ MO Unknown Completed [facility] TDAP Unknown Completed [facility] Influenza Virus Vaccine Quad ID 18-64 YRS Unknown Completed [facility] Influenza Virus Vaccine Quad IM 3+ YRS Unknown Completed [facility] Influenza Virus Vaccine Quad .5 mL IM 6+ MO (FLUZONE/FLULAVAL/F LUARIX) Unknown Completed [facility] Influenza Virus Vaccine Quad .5 mL IM 6+ MO (FLUZONE/FLULAVAL/F LUARIX) Unknown Completed [facility] Pneumococcal 13 Conjugate, PCV13 (Prevnar 13) Unknown Completed [facility] Influenza Virus Vaccine Quad .5 mL IM 6+ MO (FLUZONE/FLULAVAL/F LUARIX) Unknown Completed [facility] SARS-COV-2 COVID-19 PFIZER VACCINE Unknown Completed [facility] SARS-COV-2 COVID-19 PFIZER VACCINE Unknown Completed [facility] Pneumococcal Polysaccharide, PPSV23 (PNEUMOVAX) Unknown Completed [facility] Influenza Virus Vaccine,quad Im,preserve Free 65+ (FLUAD) Unknown Completed [facility] Influenza Virus Vaccine,quad Im,preserve Free 65+ (FLUAD) Unknown Completed [facility] Hep B, Adol or Pedi Dosage Unknown Completed [facility] Hep B, Adol or Pedi Dosage Unknown Completed [facility] Influenza Virus Vaccine Unknown Completed [facility] Pneumococcal Polysaccharide, PPSV23 (PNEUMOVAX) Unknown Completed [facility] H1n1 Vaccine Unknown Completed [facility] Hep B, Adol or Pedi Dosage Unknown Completed [facility] Influenza Virus Vaccine Unknown Completed [facility] Influenza Virus Vaccine Unknown Completed [facility] Influenza Virus Vaccine Unknown Completed [facility] Influenza Virus Vaccine Unknown Completed [facility] Influenza Virus Vaccine (3+ yrs) Unknown Completed [facility] Influenza Virus Vaccine Quad ID 18-64 YRS Unknown Completed [facility] Influenza Virus Vaccine Quad IM Multi-dose 6+ MO Unknown Completed [facility] TDAP Unknown Completed [facility] Influenza Virus Vaccine Quad ID 18-64 YRS Unknown Completed [facility] Influenza Virus Vaccine Quad IM 3+ YRS Unknown Completed [facility] Influenza Virus Vaccine Quad .5 mL IM 6+ MO (FLUZONE/FLULAVAL/F LUARIX) Unknown Completed [facility] Influenza Virus Vaccine Quad .5 mL IM 6+ MO (FLUZONE/FLULAVAL/F LUARIX) Unknown Completed [facility] Pneumococcal 13 Conjugate, PCV13 (Prevnar 13) Unknown Completed [facility] Influenza Virus Vaccine Quad .5 mL IM 6+ MO (FLUZONE/FLULAVAL/F LUARIX) Unknown Completed [facility] SARS-COV-2 COVID-19 PFIZER VACCINE Unknown Completed [facility] SARS-COV-2 COVID-19 PFIZER VACCINE Unknown Completed [facility] Pneumococcal Polysaccharide, PPSV23 (PNEUMOVAX) Unknown Completed [facility] Influenza Virus Vaccine,quad Im,preserve Free 65+ (FLUAD) Unknown Completed [facility] Influenza Virus Vaccine,quad Im,preserve Free 65+ (FLUAD) Unknown Completed [facility] Hep B, Adol or Pedi Dosage Unknown Completed [facility] Hep B, Adol or Pedi Dosage Unknown Completed [facility] Influenza Virus Vaccine Unknown Completed [facility] Pneumococcal Polysaccharide, PPSV23 (PNEUMOVAX) Unknown Completed [facility] H1n1 Vaccine Unknown Completed [facility] Hep B, Adol or Pedi Dosage Unknown Completed [facility] Influenza Virus Vaccine Unknown Completed [facility] Influenza Virus Vaccine Unknown Completed [facility] Influenza Virus Vaccine Unknown Completed [facility] Influenza Virus Vaccine Unknown Completed [facility] Influenza Virus Vaccine (3+ yrs) Unknown Completed [facility] Influenza Virus Vaccine Quad ID 18-64 YRS Unknown Completed [facility] Influenza Virus Vaccine Quad IM Multi-dose 6+ MO Unknown Completed [facility] TDAP Unknown Completed [facility] Influenza Virus Vaccine Quad ID 18-64 YRS Unknown Completed [facility] Influenza Virus Vaccine Quad IM 3+ YRS Unknown Completed [facility] Influenza Virus Vaccine Quad .5 mL IM 6+ MO (FLUZONE/FLULAVAL/F LUARIX) Unknown Completed [facility] Influenza Virus Vaccine Quad .5 mL IM 6+ MO (FLUZONE/FLULAVAL/F LUARIX) Unknown Completed [facility] Pneumococcal 13 Conjugate, PCV13 (Prevnar 13) Unknown Completed [facility] Influenza Virus Vaccine Quad .5 mL IM 6+ MO (FLUZONE/FLULAVAL/F LUARIX) Unknown Completed [facility] SARS-COV-2 COVID-19 PFIZER VACCINE Unknown Completed [facility] SARS-COV-2 COVID-19 PFIZER VACCINE Unknown Completed [facility] Pneumococcal Polysaccharide, PPSV23 (PNEUMOVAX) Unknown Completed [facility] Influenza Virus Vaccine,quad Im,preserve Free 65+ (FLUAD) Unknown Completed [facility] Influenza Virus Vaccine,quad Im,preserve Free 65+ (FLUAD) Unknown Completed [facility] Hep B, Adol or Pedi Dosage Unknown Completed [facility] Hep B, Adol or Pedi Dosage Unknown Completed [facility] Influenza Virus Vaccine Unknown Completed [facility] Pneumococcal Polysaccharide, PPSV23 (PNEUMOVAX) Unknown Completed [facility] H1n1 Vaccine Unknown Completed [facility] Hep B, Adol or Pedi Dosage Unknown Completed [facility] Influenza Virus Vaccine Unknown Completed [facility] Influenza Virus Vaccine Unknown Completed [facility] Influenza Virus Vaccine Unknown Completed [facility] Influenza Virus Vaccine Unknown Completed [facility] Influenza Virus Vaccine (3+ yrs) Unknown Completed [facility] Influenza Virus Vaccine Quad ID 18-64 YRS Unknown Completed [facility] Influenza Virus Vaccine Quad IM Multi-dose 6+ MO Unknown Completed [facility] TDAP Unknown Completed [facility] Influenza Virus Vaccine Quad ID 18-64 YRS Unknown Completed [facility] Influenza Virus Vaccine Quad IM 3+ YRS Unknown Completed [facility] Influenza Virus Vaccine Quad .5 mL IM 6+ MO (FLUZONE/FLULAVAL/F LUARIX) Unknown Completed [facility] Influenza Virus Vaccine Quad .5 mL IM 6+ MO (FLUZONE/FLULAVAL/F LUARIX) Unknown Completed [facility] Pneumococcal 13 Conjugate, PCV13 (Prevnar 13) Unknown Completed [facility] Influenza Virus Vaccine Quad .5 mL IM 6+ MO (FLUZONE/FLULAVAL/F LUARIX) Unknown Completed [facility] SARS-COV-2 COVID-19 PFIZER VACCINE Unknown Completed [facility] SARS-COV-2 COVID-19 PFIZER VACCINE Unknown Completed [facility] Pneumococcal Polysaccharide, PPSV23 (PNEUMOVAX) Unknown Completed [facility] Influenza Virus Vaccine,quad Im,preserve Free 65+ (FLUAD) Unknown Completed [facility] Influenza Virus Vaccine,quad Im,preserve Free 65+ (FLUAD) Unknown Completed [facility] Hep B, Adol or Pedi Dosage Unknown Completed [facility] Hep B, Adol or Pedi Dosage Unknown Completed [facility] Influenza Virus Vaccine Unknown Completed [facility] Pneumococcal Polysaccharide, PPSV23 (PNEUMOVAX) Unknown Completed [facility] H1n1 Vaccine Unknown Completed [facility] Hep B, Adol or Pedi Dosage Unknown Completed [facility] Influenza Virus Vaccine Unknown Completed [facility] Influenza Virus Vaccine Unknown Completed [facility] Influenza Virus Vaccine Unknown Completed [facility] Influenza Virus Vaccine Unknown Completed [facility] Influenza Virus Vaccine (3+ yrs) Unknown Completed [facility] Influenza Virus Vaccine Quad ID 18-64 YRS Unknown Completed [facility] Influenza Virus Vaccine Quad IM Multi-dose 6+ MO Unknown Completed [facility] TDAP Unknown Completed [facility] Influenza Virus Vaccine Quad ID 18-64 YRS Unknown Completed [facility] Influenza Virus Vaccine Quad IM 3+ YRS Unknown Completed [facility] Influenza Virus Vaccine Quad .5 mL IM 6+ MO (FLUZONE/FLULAVAL/F LUARIX) Unknown Completed [facility] Influenza Virus Vaccine Quad .5 mL IM 6+ MO (FLUZONE/FLULAVAL/F LUARIX) Unknown Completed [facility] Pneumococcal 13 Conjugate, PCV13 (Prevnar 13) Unknown Completed [facility] Influenza Virus Vaccine Quad .5 mL IM 6+ MO (FLUZONE/FLULAVAL/F LUARIX) Unknown Completed [facility] SARS-COV-2 COVID-19 PFIZER VACCINE Unknown Completed [facility] SARS-COV-2 COVID-19 PFIZER VACCINE Unknown Completed [facility] Pneumococcal Polysaccharide, PPSV23 (PNEUMOVAX) Unknown Completed [facility] Influenza Virus Vaccine,quad Im,preserve Free 65+ (FLUAD) Unknown Completed [facility] Influenza Virus Vaccine,quad Im,preserve Free 65+ (FLUAD) Unknown Completed [facility] Hep B, Adol or Pedi Dosage Unknown Completed [facility] Hep B, Adol or Pedi Dosage Unknown Completed [facility] Influenza Virus Vaccine Unknown Completed [facility] Pneumococcal Polysaccharide, PPSV23 (PNEUMOVAX) Unknown Completed [facility] H1n1 Vaccine Unknown Completed [facility] Hep B, Adol or Pedi Dosage Unknown Completed [facility] Influenza Virus Vaccine Unknown Completed [facility] Influenza Virus Vaccine Unknown Completed [facility] Influenza Virus Vaccine Unknown Completed [facility] Influenza Virus Vaccine Unknown Completed [facility] Influenza Virus Vaccine (3+ yrs) Unknown Completed [facility] Influenza Virus Vaccine Quad ID 18-64 YRS Unknown Completed [facility] Influenza Virus Vaccine Quad IM Multi-dose 6+ MO Unknown Completed [facility] TDAP Unknown Completed [facility] Influenza Virus Vaccine Quad ID 18-64 YRS Unknown Completed [facility] Influenza Virus Vaccine Quad IM 3+ YRS Unknown Completed [facility] Influenza Virus Vaccine Quad .5 mL IM 6+ MO (FLUZONE/FLULAVAL/F LUARIX) Unknown Completed [facility] Influenza Virus Vaccine Quad .5 mL IM 6+ MO (FLUZONE/FLULAVAL/F LUARIX) Unknown Completed [facility] Pneumococcal 13 Conjugate, PCV13 (Prevnar 13) Unknown Completed [facility] Influenza Virus Vaccine Quad .5 mL IM 6+ MO (FLUZONE/FLULAVAL/F LUARIX) Unknown Completed [facility] SARS-COV-2 COVID-19 PFIZER VACCINE Unknown Completed [facility] SARS-COV-2 COVID-19 PFIZER VACCINE Unknown Completed [facility] Pneumococcal Polysaccharide, PPSV23 (PNEUMOVAX) Unknown Completed [facility] Influenza Virus Vaccine,quad Im,preserve Free 65+ (FLUAD) Unknown Completed [facility] Influenza Virus Vaccine,quad Im,preserve Free 65+ (FLUAD) Unknown Completed [facility] Hep B, Adol or Pedi Dosage Unknown Completed [facility] Hep B, Adol or Pedi Dosage Unknown Completed [facility] Influenza Virus Vaccine Unknown Completed [facility] Pneumococcal Polysaccharide, PPSV23 (PNEUMOVAX) Unknown Completed [facility] H1n1 Vaccine Unknown Completed [facility] Hep B, Adol or Pedi Dosage Unknown Completed [facility] Influenza Virus Vaccine Unknown Completed [facility] Influenza Virus Vaccine Unknown Completed [facility] Influenza Virus Vaccine Unknown Completed [facility] Influenza Virus Vaccine Unknown Completed [facility] Influenza Virus Vaccine (3+ yrs) Unknown Completed [facility] Influenza Virus Vaccine Quad ID 18-64 YRS Unknown Completed [facility] Influenza Virus Vaccine Quad IM Multi-dose 6+ MO Unknown Completed [facility] TDAP Unknown Completed [facility] Influenza Virus Vaccine Quad ID 18-64 YRS Unknown Completed [facility] Influenza Virus Vaccine Quad IM 3+ YRS Unknown Completed [facility] Influenza Virus Vaccine Quad .5 mL IM 6+ MO (FLUZONE/FLULAVAL/F LUARIX) Unknown Completed [facility] Influenza Virus Vaccine Quad .5 mL IM 6+ MO (FLUZONE/FLULAVAL/F LUARIX) Unknown Completed [facility] Pneumococcal 13 Conjugate, PCV13 (Prevnar 13) Unknown Completed [facility] Influenza Virus Vaccine Quad .5 mL IM 6+ MO (FLUZONE/FLULAVAL/F LUARIX) Unknown Completed [facility] SARS-COV-2 COVID-19 PFIZER VACCINE Unknown Completed [facility] SARS-COV-2 COVID-19 PFIZER VACCINE Unknown Completed [facility] Pneumococcal Polysaccharide, PPSV23 (PNEUMOVAX) Unknown Completed [facility] Influenza Virus Vaccine,quad Im,preserve Free 65+ (FLUAD) Unknown Completed [facility] Influenza Virus Vaccine,quad Im,preserve Free 65+ (FLUAD) Unknown Completed [facility] Hep B, Adol or Pedi Dosage Unknown Completed [facility] Hep B, Adol or Pedi Dosage Unknown Completed [facility] Influenza Virus Vaccine Unknown Completed [facility] Pneumococcal Polysaccharide, PPSV23 (PNEUMOVAX) Unknown Completed [facility] H1n1 Vaccine Unknown Completed [facility] Hep B, Adol or Pedi Dosage Unknown Completed [facility] Influenza Virus Vaccine Unknown Completed [facility] Influenza Virus Vaccine Unknown Completed [facility] Influenza Virus Vaccine Unknown Completed [facility] Influenza Virus Vaccine Unknown Completed [facility] Influenza Virus Vaccine (3+ yrs) Unknown Completed [facility] Influenza Virus Vaccine Quad ID 18-64 YRS Unknown Completed [facility] Influenza Virus Vaccine Quad IM Multi-dose 6+ MO Unknown Completed [facility] TDAP Unknown Completed [facility] Influenza Virus Vaccine Quad ID 18-64 YRS Unknown Completed [facility] Influenza Virus Vaccine Quad IM 3+ YRS Unknown Completed [facility] Influenza Virus Vaccine Quad .5 mL IM 6+ MO (FLUZONE/FLULAVAL/F LUARIX) Unknown Completed [facility] Influenza Virus Vaccine Quad .5 mL IM 6+ MO (FLUZONE/FLULAVAL/F LUARIX) Unknown Completed [facility] Pneumococcal 13 Conjugate, PCV13 (Prevnar 13) Unknown Completed [facility] Influenza Virus Vaccine Quad .5 mL IM 6+ MO (FLUZONE/FLULAVAL/F LUARIX) Unknown Completed [facility] SARS-COV-2 COVID-19 PFIZER VACCINE Unknown Completed [facility] SARS-COV-2 COVID-19 PFIZER VACCINE Unknown Completed [facility] Pneumococcal Polysaccharide, PPSV23 (PNEUMOVAX) Unknown Completed [facility] Influenza Virus Vaccine,quad Im,preserve Free 65+ (FLUAD) Unknown Completed [facility] Influenza Virus Vaccine,quad Im,preserve Free 65+ (FLUAD) Unknown Completed [facility] Hep B, Adol or Pedi Dosage Unknown Completed [facility] Hep B, Adol or Pedi Dosage Unknown Completed [facility] Influenza Virus Vaccine Unknown Completed [facility] Pneumococcal Polysaccharide, PPSV23 (PNEUMOVAX) Unknown Completed [facility] H1n1 Vaccine Unknown Completed [facility] Hep B, Adol or Pedi Dosage Unknown Completed [facility] Influenza Virus Vaccine Unknown Completed [facility] Influenza Virus Vaccine Unknown Completed [facility] Influenza Virus Vaccine Unknown Completed [facility] Influenza Virus Vaccine Unknown Completed [facility] Influenza Virus Vaccine (3+ yrs) Unknown Completed [facility] Influenza Virus Vaccine Quad ID 18-64 YRS Unknown Completed [facility] Influenza Virus Vaccine Quad IM Multi-dose 6+ MO Unknown Completed [facility] TDAP Unknown Completed [facility] Influenza Virus Vaccine Quad ID 18-64 YRS Unknown Completed [facility] Influenza Virus Vaccine Quad IM 3+ YRS Unknown Completed [facility] Influenza Virus Vaccine Quad .5 mL IM 6+ MO (FLUZONE/FLULAVAL/F LUARIX) Unknown Completed [facility] Influenza Virus Vaccine Quad .5 mL IM 6+ MO (FLUZONE/FLULAVAL/F LUARIX) Unknown Completed [facility] Pneumococcal 13 Conjugate, PCV13 (Prevnar 13) Unknown Completed [facility] Influenza Virus Vaccine Quad .5 mL IM 6+ MO (FLUZONE/FLULAVAL/F LUARIX) Unknown Completed [facility] SARS-COV-2 COVID-19 PFIZER VACCINE Unknown Completed [facility] SARS-COV-2 COVID-19 PFIZER VACCINE Unknown Completed [facility] Pneumococcal Polysaccharide, PPSV23 (PNEUMOVAX) Unknown Completed [facility] Influenza Virus Vaccine,quad Im,preserve Free 65+ (FLUAD) Unknown Completed [facility] Influenza Virus Vaccine,quad Im,preserve Free 65+ (FLUAD) Unknown Completed [facility] Hep B, Adol or Pedi Dosage Unknown Completed [facility] Hep B, Adol or Pedi Dosage Unknown Completed [facility] Influenza Virus Vaccine Unknown Completed [facility] Pneumococcal Polysaccharide, PPSV23 (PNEUMOVAX) Unknown Completed [facility] H1n1 Vaccine Unknown Completed [facility] Hep B, Adol or Pedi Dosage Unknown Completed [facility] Influenza Virus Vaccine Unknown Completed [facility] Influenza Virus Vaccine Unknown Completed [facility] Influenza Virus Vaccine Unknown Completed [facility] Influenza Virus Vaccine Unknown Completed [facility] Influenza Virus Vaccine (3+ yrs) Unknown Completed [facility] Influenza Virus Vaccine Quad ID 18-64 YRS Unknown Completed [facility] Influenza Virus Vaccine Quad IM Multi-dose 6+ MO Unknown Completed [facility] TDAP Unknown Completed [facility] Influenza Virus Vaccine Quad ID 18-64 YRS Unknown Completed [facility] Influenza Virus Vaccine Quad IM 3+ YRS Unknown Completed [facility] Influenza Virus Vaccine Quad .5 mL IM 6+ MO (FLUZONE/FLULAVAL/F LUARIX) Unknown Completed [facility] Influenza Virus Vaccine Quad .5 mL IM 6+ MO (FLUZONE/FLULAVAL/F LUARIX) Unknown Completed [facility] Pneumococcal 13 Conjugate, PCV13 (Prevnar 13) Unknown Completed [facility] Influenza Virus Vaccine Quad .5 mL IM 6+ MO (FLUZONE/FLULAVAL/F LUARIX) Unknown Completed [facility] SARS-COV-2 COVID-19 PFIZER VACCINE Unknown Completed [facility] SARS-COV-2 COVID-19 PFIZER VACCINE Unknown Completed [facility] Pneumococcal Polysaccharide, PPSV23 (PNEUMOVAX) Unknown Completed [facility] Influenza Virus Vaccine,quad Im,preserve Free 65+ (FLUAD) Unknown Completed [facility] Influenza Virus Vaccine,quad Im,preserve Free 65+ (FLUAD) Unknown Completed [facility] Hep B, Adol or Pedi Dosage Unknown Completed [facility] Hep B, Adol or Pedi Dosage Unknown Completed [facility] Influenza Virus Vaccine Unknown Completed [facility] Pneumococcal Polysaccharide, PPSV23 (PNEUMOVAX) Unknown Completed [facility] H1n1 Vaccine Unknown Completed [facility] Hep B, Adol or Pedi Dosage Unknown Completed [facility] Influenza Virus Vaccine Unknown Completed [facility] Influenza Virus Vaccine Unknown Completed [facility] Influenza Virus Vaccine Unknown Completed [facility] Influenza Virus Vaccine Unknown Completed [facility] Influenza Virus Vaccine (3+ yrs) Unknown Completed [facility] Influenza Virus Vaccine Quad ID 18-64 YRS Unknown Completed [facility] Influenza Virus Vaccine Quad IM Multi-dose 6+ MO Unknown Completed [facility] TDAP Unknown Completed [facility] Influenza Virus Vaccine Quad ID 18-64 YRS Unknown Completed [facility] Influenza Virus Vaccine Quad IM 3+ YRS Unknown Completed [facility] Influenza Virus Vaccine Quad .5 mL IM 6+ MO (FLUZONE/FLULAVAL/F LUARIX) Unknown Completed [facility] Influenza Virus Vaccine Quad .5 mL IM 6+ MO (FLUZONE/FLULAVAL/F LUARIX) Unknown Completed [facility] Pneumococcal 13 Conjugate, PCV13 (Prevnar 13) Unknown Completed [facility] Influenza Virus Vaccine Quad .5 mL IM 6+ MO (FLUZONE/FLULAVAL/F LUARIX) Unknown Completed [facility] SARS-COV-2 COVID-19 PFIZER VACCINE Unknown Completed [facility] SARS-COV-2 COVID-19 PFIZER VACCINE Unknown Completed [facility] Pneumococcal Polysaccharide, PPSV23 (PNEUMOVAX) Unknown Completed [facility] Influenza Virus Vaccine,quad Im,preserve Free 65+ (FLUAD) Unknown Completed [facility] Influenza Virus Vaccine,quad Im,preserve Free 65+ (FLUAD) Unknown Completed [facility] Hep B, Adol or Pedi Dosage Unknown Completed [facility] Hep B, Adol or Pedi Dosage Unknown Completed [facility] Influenza Virus Vaccine Unknown Completed [facility] Pneumococcal Polysaccharide, PPSV23 (PNEUMOVAX) Unknown Completed [facility] H1n1 Vaccine Unknown Completed [facility] Hep B, Adol or Pedi Dosage Unknown Completed [facility] Influenza Virus Vaccine Unknown Completed [facility] Influenza Virus Vaccine Unknown Completed [facility] Influenza Virus Vaccine Unknown Completed [facility] Influenza Virus Vaccine Unknown Completed [facility] Influenza Virus Vaccine (3+ yrs) Unknown Completed [facility] Influenza Virus Vaccine Quad ID 18-64 YRS Unknown Completed [facility] Influenza Virus Vaccine Quad IM Multi-dose 6+ MO Unknown Completed [facility] TDAP Unknown Completed [facility] Influenza Virus Vaccine Quad ID 18-64 YRS Unknown Completed [facility] Influenza Virus Vaccine Quad IM 3+ YRS Unknown Completed [facility] Influenza Virus Vaccine Quad .5 mL IM 6+ MO (FLUZONE/FLULAVAL/F LUARIX) Unknown Completed [facility] Influenza Virus Vaccine Quad .5 mL IM 6+ MO (FLUZONE/FLULAVAL/F LUARIX) Unknown Completed [facility] Pneumococcal 13 Conjugate, PCV13 (Prevnar 13) Unknown Completed [facility] Influenza Virus Vaccine Quad .5 mL IM 6+ MO (FLUZONE/FLULAVAL/F LUARIX) Unknown Completed [facility] SARS-COV-2 COVID-19 PFIZER VACCINE Unknown Completed [facility] SARS-COV-2 COVID-19 PFIZER VACCINE Unknown Completed [facility] Pneumococcal Polysaccharide, PPSV23 (PNEUMOVAX) Unknown Completed [facility] Influenza Virus Vaccine,quad Im,preserve Free 65+ (FLUAD) Unknown Completed [facility] Influenza Virus Vaccine,quad Im,preserve Free 65+ (FLUAD) Unknown Completed [facility] Hep B, Adol or Pedi Dosage Unknown Completed [facility] Hep B, Adol or Pedi Dosage Unknown Completed [facility] Influenza Virus Vaccine Unknown Completed [facility] Pneumococcal Polysaccharide, PPSV23 (PNEUMOVAX) Unknown Completed [facility] H1n1 Vaccine Unknown Completed [facility] Hep B, Adol or Pedi Dosage Unknown Completed [facility] Influenza Virus Vaccine Unknown Completed [facility] Influenza Virus Vaccine Unknown Completed [facility] Influenza Virus Vaccine Unknown Completed [facility] Influenza Virus Vaccine Unknown Completed [facility] Influenza Virus Vaccine (3+ yrs) Unknown Completed [facility] Influenza Virus Vaccine Quad ID 18-64 YRS Unknown Completed [facility] Influenza Virus Vaccine Quad IM Multi-dose 6+ MO Unknown Completed [facility] TDAP Unknown Completed [facility] Influenza Virus Vaccine Quad ID 18-64 YRS Unknown Completed [facility] Influenza Virus Vaccine Quad IM 3+ YRS Unknown Completed [facility] Influenza Virus Vaccine Quad .5 mL IM 6+ MO (FLUZONE/FLULAVAL/F LUARIX) Unknown Completed [facility] Influenza Virus Vaccine Quad .5 mL IM 6+ MO (FLUZONE/FLULAVAL/F LUARIX) Unknown Completed [facility] Pneumococcal 13 Conjugate, PCV13 (Prevnar 13) Unknown Completed [facility] Influenza Virus Vaccine Quad .5 mL IM 6+ MO (FLUZONE/FLULAVAL/F LUARIX) Unknown Completed [facility] SARS-COV-2 COVID-19 PFIZER VACCINE Unknown Completed [facility] SARS-COV-2 COVID-19 PFIZER VACCINE Unknown Completed [facility] Pneumococcal Polysaccharide, PPSV23 (PNEUMOVAX) Unknown Completed [facility] Influenza Virus Vaccine,quad Im,preserve Free 65+ (FLUAD) Unknown Completed [facility] Influenza Virus Vaccine,quad Im,preserve Free 65+ (FLUAD) Unknown Completed [facility] Hep B, Adol or Pedi Dosage Unknown Completed [facility] Hep B, Adol or Pedi Dosage Unknown Completed [facility] Influenza Virus Vaccine Unknown Completed [facility] Pneumococcal Polysaccharide, PPSV23 (PNEUMOVAX) Unknown Completed [facility] H1n1 Vaccine Unknown Completed [facility] Hep B, Adol or Pedi Dosage Unknown Completed [facility] Influenza Virus Vaccine Unknown Completed [facility] Influenza Virus Vaccine Unknown Completed [facility] Influenza Virus Vaccine Unknown Completed [facility] Influenza Virus Vaccine Unknown Completed [facility] Influenza Virus Vaccine (3+ yrs) Unknown Completed [facility] Influenza Virus Vaccine Quad ID 18-64 YRS Unknown Completed [facility] Influenza Virus Vaccine Quad IM Multi-dose 6+ MO Unknown Completed [facility] TDAP Unknown Completed [facility] Influenza Virus Vaccine Quad ID 18-64 YRS Unknown Completed [facility] Influenza Virus Vaccine Quad IM 3+ YRS Unknown Completed [facility] Influenza Virus Vaccine Quad .5 mL IM 6+ MO (FLUZONE/FLULAVAL/F LUARIX) Unknown Completed [facility] Influenza Virus Vaccine Quad .5 mL IM 6+ MO (FLUZONE/FLULAVAL/F LUARIX) Unknown Completed [facility] Pneumococcal 13 Conjugate, PCV13 (Prevnar 13) Unknown Completed [facility] Influenza Virus Vaccine Quad .5 mL IM 6+ MO (FLUZONE/FLULAVAL/F LUARIX) Unknown Completed [facility] SARS-COV-2 COVID-19 PFIZER VACCINE Unknown Completed [facility] SARS-COV-2 COVID-19 PFIZER VACCINE Unknown Completed [facility] Pneumococcal Polysaccharide, PPSV23 (PNEUMOVAX) Unknown Completed [facility] Influenza Virus Vaccine,quad Im,preserve Free 65+ (FLUAD) Unknown Completed [facility] Influenza Virus Vaccine,quad Im,preserve Free 65+ (FLUAD) Unknown Completed [facility] Hep B, Adol or Pedi Dosage Unknown Completed [facility] Hep B, Adol or Pedi Dosage Unknown Completed [facility] Influenza Virus Vaccine Unknown Completed [facility] Pneumococcal Polysaccharide, PPSV23 (PNEUMOVAX) Unknown Completed [facility] H1n1 Vaccine Unknown Completed [facility] Hep B, Adol or Pedi Dosage Unknown Completed [facility] Influenza Virus Vaccine Unknown Completed [facility] Influenza Virus Vaccine Unknown Completed [facility] Influenza Virus Vaccine Unknown Completed [facility] Influenza Virus Vaccine Unknown Completed [facility] Influenza Virus Vaccine (3+ yrs) Unknown Completed [facility] Influenza Virus Vaccine Quad ID 18-64 YRS Unknown Completed [facility] Influenza Virus Vaccine Quad IM Multi-dose 6+ MO Unknown Completed [facility] TDAP Unknown Completed [facility] Influenza Virus Vaccine Quad ID 18-64 YRS Unknown Completed [facility] Influenza Virus Vaccine Quad IM 3+ YRS Unknown Completed [facility] Influenza Virus Vaccine Quad .5 mL IM 6+ MO (FLUZONE/FLULAVAL/F LUARIX) Unknown Completed [facility] Influenza Virus Vaccine Quad .5 mL IM 6+ MO (FLUZONE/FLULAVAL/F LUARIX) Unknown Completed [facility] Pneumococcal 13 Conjugate, PCV13 (Prevnar 13) Unknown Completed [facility] Influenza Virus Vaccine Quad .5 mL IM 6+ MO (FLUZONE/FLULAVAL/F LUARIX) Unknown Completed [facility] SARS-COV-2 COVID-19 PFIZER VACCINE Unknown Completed [facility] SARS-COV-2 COVID-19 PFIZER VACCINE Unknown Completed [facility] Pneumococcal Polysaccharide, PPSV23 (PNEUMOVAX) Unknown Completed [facility] Influenza Virus Vaccine,quad Im,preserve Free 65+ (FLUAD) Unknown Completed [facility] Influenza Virus Vaccine,quad Im,preserve Free 65+ (FLUAD) Unknown Completed [facility] Hep B, Adol or Pedi Dosage Unknown Completed [facility] Hep B, Adol or Pedi Dosage Unknown Completed [facility] Influenza Virus Vaccine Unknown Completed [facility] Pneumococcal Polysaccharide, PPSV23 (PNEUMOVAX) Unknown Completed [facility] H1n1 Vaccine Unknown Completed [facility] Hep B, Adol or Pedi Dosage Unknown Completed [facility] Influenza Virus Vaccine Unknown Completed [facility] Influenza Virus Vaccine Unknown Completed [facility] Influenza Virus Vaccine Unknown Completed [facility] Influenza Virus Vaccine Unknown Completed [facility] Influenza Virus Vaccine (3+ yrs) Unknown Completed [facility] Influenza Virus Vaccine Quad ID 18-64 YRS Unknown Completed [facility] Influenza Virus Vaccine Quad IM Multi-dose 6+ MO Unknown Completed [facility] TDAP Unknown Completed [facility] Influenza Virus Vaccine Quad ID 18-64 YRS Unknown Completed [facility] Influenza Virus Vaccine Quad IM 3+ YRS Unknown Completed [facility] Influenza Virus Vaccine Quad .5 mL IM 6+ MO (FLUZONE/FLULAVAL/F LUARIX) Unknown Completed [facility] Influenza Virus Vaccine Quad .5 mL IM 6+ MO (FLUZONE/FLULAVAL/F LUARIX) Unknown Completed [facility] Pneumococcal 13 Conjugate, PCV13 (Prevnar 13) Unknown Completed [facility] Influenza Virus Vaccine Quad .5 mL IM 6+ MO (FLUZONE/FLULAVAL/F LUARIX) Unknown Completed [facility] SARS-COV-2 COVID-19 PFIZER VACCINE Unknown Completed [facility] SARS-COV-2 COVID-19 PFIZER VACCINE Unknown Completed [facility] Pneumococcal Polysaccharide, PPSV23 (PNEUMOVAX) Unknown Completed [facility] Influenza Virus Vaccine,quad Im,preserve Free 65+ (FLUAD) Unknown Completed [facility] Influenza Virus Vaccine,quad Im,preserve Free 65+ (FLUAD) Unknown Completed [facility] Hep B, Adol or Pedi Dosage Unknown Completed [facility] Hep B, Adol or Pedi Dosage Unknown Completed [facility] Influenza Virus Vaccine Unknown Completed [facility] Pneumococcal Polysaccharide, PPSV23 (PNEUMOVAX) Unknown Completed [facility] H1n1 Vaccine Unknown Completed [facility] Hep B, Adol or Pedi Dosage Unknown Completed [facility] Influenza Virus Vaccine Unknown Completed [facility] Influenza Virus Vaccine Unknown Completed [facility] Influenza Virus Vaccine Unknown Completed [facility] Influenza Virus Vaccine Unknown Completed [facility] Influenza Virus Vaccine (3+ yrs) Unknown Completed [facility] Influenza Virus Vaccine Quad ID 18-64 YRS Unknown Completed [facility] Influenza Virus Vaccine Quad IM Multi-dose 6+ MO Unknown Completed [facility] TDAP Unknown Completed [facility] Influenza Virus Vaccine Quad ID 18-64 YRS Unknown Completed [facility] Influenza Virus Vaccine Quad IM 3+ YRS Unknown Completed [facility] Influenza Virus Vaccine Quad .5 mL IM 6+ MO (FLUZONE/FLULAVAL/F LUARIX) Unknown Completed [facility] Influenza Virus Vaccine Quad .5 mL IM 6+ MO (FLUZONE/FLULAVAL/F LUARIX) Unknown Completed [facility] Pneumococcal 13 Conjugate, PCV13 (Prevnar 13) Unknown Completed [facility] Influenza Virus Vaccine Quad .5 mL IM 6+ MO (FLUZONE/FLULAVAL/F LUARIX) Unknown Completed [facility] SARS-COV-2 COVID-19 PFIZER VACCINE Unknown Completed [facility] SARS-COV-2 COVID-19 PFIZER VACCINE Unknown Completed [facility] Pneumococcal Polysaccharide, PPSV23 (PNEUMOVAX) Unknown Completed [facility] Influenza Virus Vaccine,quad Im,preserve Free 65+ (FLUAD) Unknown Completed [facility] Influenza Virus Vaccine,quad Im,preserve Free 65+ (FLUAD) Unknown Completed [facility] Hep B, Adol or Pedi Dosage Unknown Completed [facility] Hep B, Adol or Pedi Dosage Unknown Completed [facility] Influenza Virus Vaccine Unknown Completed [facility] Pneumococcal Polysaccharide, PPSV23 (PNEUMOVAX) Unknown Completed [facility] H1n1 Vaccine Unknown Completed [facility] Hep B, Adol or Pedi Dosage Unknown Completed [facility] Influenza Virus Vaccine Unknown Completed [facility] Influenza Virus Vaccine Unknown Completed [facility] Influenza Virus Vaccine Unknown Completed [facility] Influenza Virus Vaccine Unknown Completed [facility] Influenza Virus Vaccine (3+ yrs) Unknown Completed [facility] Influenza Virus Vaccine Quad ID 18-64 YRS Unknown Completed [facility] Influenza Virus Vaccine Quad IM Multi-dose 6+ MO Unknown Completed [facility] TDAP Unknown Completed [facility] Influenza Virus Vaccine Quad ID 18-64 YRS Unknown Completed [facility] Influenza Virus Vaccine Quad IM 3+ YRS Unknown Completed [facility] Influenza Virus Vaccine Quad .5 mL IM 6+ MO (FLUZONE/FLULAVAL/F LUARIX) Unknown Completed [facility] Influenza Virus Vaccine Quad .5 mL IM 6+ MO (FLUZONE/FLULAVAL/F LUARIX) Unknown Completed [facility] Pneumococcal 13 Conjugate, PCV13 (Prevnar 13) Unknown Completed [facility] Influenza Virus Vaccine Quad .5 mL IM 6+ MO (FLUZONE/FLULAVAL/F LUARIX) Unknown Completed [facility] SARS-COV-2 COVID-19 PFIZER VACCINE Unknown Completed [facility] SARS-COV-2 COVID-19 PFIZER VACCINE Unknown Completed [facility] Pneumococcal Polysaccharide, PPSV23 (PNEUMOVAX) Unknown Completed [facility] Influenza Virus Vaccine,quad Im,preserve Free 65+ (FLUAD) Unknown Completed [facility] Influenza Virus Vaccine,quad Im,preserve Free 65+ (FLUAD) Unknown Completed [facility] Hep B, Adol or Pedi Dosage Unknown Completed [facility] Hep B, Adol or Pedi Dosage Unknown Completed [facility] Influenza Virus Vaccine Unknown Completed [facility] Pneumococcal Polysaccharide, PPSV23 (PNEUMOVAX) Unknown Completed [facility] H1n1 Vaccine Unknown Completed [facility] Hep B, Adol or Pedi Dosage Unknown Completed [facility] Influenza Virus Vaccine Unknown Completed [facility] Influenza Virus Vaccine Unknown Completed [facility] Influenza Virus Vaccine Unknown Completed [facility] Influenza Virus Vaccine Unknown Completed [facility] Influenza Virus Vaccine (3+ yrs) Unknown Completed [facility] Influenza Virus Vaccine Quad ID 18-64 YRS Unknown Completed [facility] Influenza Virus Vaccine Quad IM Multi-dose 6+ MO Unknown Completed [facility] TDAP Unknown Completed [facility] Influenza Virus Vaccine Quad ID 18-64 YRS Unknown Completed [facility] Influenza Virus Vaccine Quad IM 3+ YRS Unknown Completed [facility] Influenza Virus Vaccine Quad .5 mL IM 6+ MO (FLUZONE/FLULAVAL/F LUARIX) Unknown Completed [facility] Influenza Virus Vaccine Quad .5 mL IM 6+ MO (FLUZONE/FLULAVAL/F LUARIX) Unknown Completed [facility] Pneumococcal 13 Conjugate, PCV13 (Prevnar 13) Unknown Completed [facility] Influenza Virus Vaccine Quad .5 mL IM 6+ MO (FLUZONE/FLULAVAL/F LUARIX) Unknown Completed [facility] SARS-COV-2 COVID-19 PFIZER VACCINE Unknown Completed [facility] SARS-COV-2 COVID-19 PFIZER VACCINE Unknown Completed [facility] Pneumococcal Polysaccharide, PPSV23 (PNEUMOVAX) Unknown Completed [facility] Influenza Virus Vaccine,quad Im,preserve Free 65+ (FLUAD) Unknown Completed [facility] Influenza Virus Vaccine,quad Im,preserve Free 65+ (FLUAD) Unknown Completed [facility] Hep B, Adol or Pedi Dosage Unknown Completed [facility] Hep B, Adol or Pedi Dosage Unknown Completed [facility] Influenza Virus Vaccine Unknown Completed [facility] Pneumococcal Polysaccharide, PPSV23 (PNEUMOVAX) Unknown Completed [facility] H1n1 Vaccine Unknown Completed [facility] Hep B, Adol or Pedi Dosage Unknown Completed [facility] Influenza Virus Vaccine Unknown Completed [facility] Influenza Virus Vaccine Unknown Completed [facility] Influenza Virus Vaccine Unknown Completed [facility] Influenza Virus Vaccine Unknown Completed [facility] Influenza Virus Vaccine (3+ yrs) Unknown Completed [facility] Influenza Virus Vaccine Quad ID 18-64 YRS Unknown Completed [facility] Influenza Virus Vaccine Quad IM Multi-dose 6+ MO Unknown Completed [facility] TDAP Unknown Completed [facility] Influenza Virus Vaccine Quad ID 18-64 YRS Unknown Completed [facility] Influenza Virus Vaccine Quad IM 3+ YRS Unknown Completed [facility] Influenza Virus Vaccine Quad .5 mL IM 6+ MO (FLUZONE/FLULAVAL/F LUARIX) Unknown Completed [facility] Influenza Virus Vaccine Quad .5 mL IM 6+ MO (FLUZONE/FLULAVAL/F LUARIX) Unknown Completed [facility] Pneumococcal 13 Conjugate, PCV13 (Prevnar 13) Unknown Completed [facility] Influenza Virus Vaccine Quad .5 mL IM 6+ MO (FLUZONE/FLULAVAL/F LUARIX) Unknown Completed [facility] SARS-COV-2 COVID-19 PFIZER VACCINE Unknown Completed [facility] SARS-COV-2 COVID-19 PFIZER VACCINE Unknown Completed [facility] Pneumococcal Polysaccharide, PPSV23 (PNEUMOVAX) Unknown Completed [facility] Influenza Virus Vaccine,quad Im,preserve Free 65+ (FLUAD) Unknown Completed [facility] Influenza Virus Vaccine,quad Im,preserve Free 65+ (FLUAD) Unknown Completed [facility] Hep B, Adol or Pedi Dosage Unknown Completed [facility] Hep B, Adol or Pedi Dosage Unknown Completed [facility] Influenza Virus Vaccine Unknown Completed [facility] Pneumococcal Polysaccharide, PPSV23 (PNEUMOVAX) Unknown Completed [facility] H1n1 Vaccine Unknown Completed [facility] Hep B, Adol or Pedi Dosage Unknown Completed [facility] Influenza Virus Vaccine Unknown Completed [facility] Influenza Virus Vaccine Unknown Completed [facility] Influenza Virus Vaccine Unknown Completed [facility] Influenza Virus Vaccine Unknown Completed [facility] Influenza Virus Vaccine (3+ yrs) Unknown Completed [facility] Influenza Virus Vaccine Quad ID 18-64 YRS Unknown Completed [facility] Influenza Virus Vaccine Quad IM Multi-dose 6+ MO Unknown Completed [facility] TDAP Unknown Completed [facility] Influenza Virus Vaccine Quad ID 18-64 YRS Unknown Completed [facility] Influenza Virus Vaccine Quad IM 3+ YRS Unknown Completed [facility] Influenza Virus Vaccine Quad .5 mL IM 6+ MO (FLUZONE/FLULAVAL/F LUARIX) Unknown Completed [facility] Influenza Virus Vaccine Quad .5 mL IM 6+ MO (FLUZONE/FLULAVAL/F LUARIX) Unknown Completed [facility] Pneumococcal 13 Conjugate, PCV13 (Prevnar 13) Unknown Completed [facility] Influenza Virus Vaccine Quad .5 mL IM 6+ MO (FLUZONE/FLULAVAL/F LUARIX) Unknown Completed [facility] SARS-COV-2 COVID-19 PFIZER VACCINE Unknown Completed [facility] SARS-COV-2 COVID-19 PFIZER VACCINE Unknown Completed [facility] Pneumococcal Polysaccharide, PPSV23 (PNEUMOVAX) Unknown Completed [facility] Influenza Virus Vaccine,quad Im,preserve Free 65+ (FLUAD) Unknown Completed [facility] Influenza Virus Vaccine,quad Im,preserve Free 65+ (FLUAD) Unknown Completed [facility] Hep B, Adol or Pedi Dosage Unknown Completed [facility] Hep B, Adol or Pedi Dosage Unknown Completed [facility] Influenza Virus Vaccine Unknown Completed [facility] Pneumococcal Polysaccharide, PPSV23 (PNEUMOVAX) Unknown Completed [facility] H1n1 Vaccine Unknown Completed [facility] Hep B, Adol or Pedi Dosage Unknown Completed [facility] Influenza Virus Vaccine Unknown Completed [facility] Influenza Virus Vaccine Unknown Completed [facility] Influenza Virus Vaccine Unknown Completed [facility] Influenza Virus Vaccine Unknown Completed [facility] Influenza Virus Vaccine (3+ yrs) Unknown Completed [facility] Influenza Virus Vaccine Quad ID 18-64 YRS Unknown Completed [facility] Influenza Virus Vaccine Quad IM Multi-dose 6+ MO Unknown Completed [facility] TDAP Unknown Completed [facility] Influenza Virus Vaccine Quad ID 18-64 YRS Unknown Completed [facility] Influenza Virus Vaccine Quad IM 3+ YRS Unknown Completed [facility] Influenza Virus Vaccine Quad .5 mL IM 6+ MO (FLUZONE/FLULAVAL/F LUARIX) Unknown Completed [facility] Influenza Virus Vaccine Quad .5 mL IM 6+ MO (FLUZONE/FLULAVAL/F LUARIX) Unknown Completed [facility] Pneumococcal 13 Conjugate, PCV13 (Prevnar 13) Unknown Completed [facility] Influenza Virus Vaccine Quad .5 mL IM 6+ MO (FLUZONE/FLULAVAL/F LUARIX) Unknown Completed [facility] SARS-COV-2 COVID-19 PFIZER VACCINE Unknown Completed [facility] SARS-COV-2 COVID-19 PFIZER VACCINE Unknown Completed [facility] Pneumococcal Polysaccharide, PPSV23 (PNEUMOVAX) Unknown Completed [facility] Influenza Virus Vaccine,quad Im,preserve Free 65+ (FLUAD) Unknown Completed [facility] Influenza Virus Vaccine,quad Im,preserve Free 65+ (FLUAD) Unknown Completed [facility] Hep B, Adol or Pedi Dosage Unknown Completed [facility] Hep B, Adol or Pedi Dosage Unknown Completed [facility] Influenza Virus Vaccine Unknown Completed [facility] Pneumococcal Polysaccharide, PPSV23 (PNEUMOVAX) Unknown Completed [facility] H1n1 Vaccine Unknown Completed [facility] Hep B, Adol or Pedi Dosage Unknown Completed [facility] Influenza Virus Vaccine Unknown Completed [facility] Influenza Virus Vaccine Unknown Completed [facility] Influenza Virus Vaccine Unknown Completed [facility] Influenza Virus Vaccine Unknown Completed [facility] Influenza Virus Vaccine (3+ yrs) Unknown Completed [facility] Influenza Virus Vaccine Quad ID 18-64 YRS Unknown Completed [facility] Influenza Virus Vaccine Quad IM Multi-dose 6+ MO Unknown Completed [facility] TDAP Unknown Completed [facility] Influenza Virus Vaccine Quad ID 18-64 YRS Unknown Completed [facility] Influenza Virus Vaccine Quad IM 3+ YRS Unknown Completed [facility] Influenza Virus Vaccine Quad .5 mL IM 6+ MO (FLUZONE/FLULAVAL/F LUARIX) Unknown Completed [facility] Influenza Virus Vaccine Quad .5 mL IM 6+ MO (FLUZONE/FLULAVAL/F LUARIX) Unknown Completed [facility] Pneumococcal 13 Conjugate, PCV13 (Prevnar 13) Unknown Completed [facility] Influenza Virus Vaccine Quad .5 mL IM 6+ MO (FLUZONE/FLULAVAL/F LUARIX) Unknown Completed [facility] SARS-COV-2 COVID-19 PFIZER VACCINE Unknown Completed [facility] SARS-COV-2 COVID-19 PFIZER VACCINE Unknown Completed [facility] Pneumococcal Polysaccharide, PPSV23 (PNEUMOVAX) Unknown Completed [facility] Influenza Virus Vaccine,quad Im,preserve Free 65+ (FLUAD) Unknown Completed [facility] Influenza Virus Vaccine,quad Im,preserve Free 65+ (FLUAD) Unknown Completed [facility] Hep B, Adol or Pedi Dosage Unknown Completed [facility] Hep B, Adol or Pedi Dosage Unknown Completed [facility] Influenza Virus Vaccine Unknown Completed [facility] Pneumococcal Polysaccharide, PPSV23 (PNEUMOVAX) Unknown Completed [facility] H1n1 Vaccine Unknown Completed [facility] Hep B, Adol or Pedi Dosage Unknown Completed [facility] Influenza Virus Vaccine Unknown Completed [facility] Influenza Virus Vaccine Unknown Completed [facility] Influenza Virus Vaccine Unknown Completed [facility] Influenza Virus Vaccine Unknown Completed [facility] Influenza Virus Vaccine (3+ yrs) Unknown Completed [facility] Influenza Virus Vaccine Quad ID 18-64 YRS Unknown Completed [facility] Influenza Virus Vaccine Quad IM Multi-dose 6+ MO Unknown Completed [facility] TDAP Unknown Completed [facility] Influenza Virus Vaccine Quad ID 18-64 YRS Unknown Completed [facility] Influenza Virus Vaccine Quad IM 3+ YRS Unknown Completed [facility] Influenza Virus Vaccine Quad .5 mL IM 6+ MO (FLUZONE/FLULAVAL/F LUARIX) Unknown Completed [facility] Influenza Virus Vaccine Quad .5 mL IM 6+ MO (FLUZONE/FLULAVAL/F LUARIX) Unknown Completed [facility] Pneumococcal 13 Conjugate, PCV13 (Prevnar 13) Unknown Completed [facility] Influenza Virus Vaccine Quad .5 mL IM 6+ MO (FLUZONE/FLULAVAL/F LUARIX) Unknown Completed [facility] SARS-COV-2 COVID-19 PFIZER VACCINE Unknown Completed [facility] SARS-COV-2 COVID-19 PFIZER VACCINE Unknown Completed [facility] Pneumococcal Polysaccharide, PPSV23 (PNEUMOVAX) Unknown Completed [facility] Influenza Virus Vaccine,quad Im,preserve Free 65+ (FLUAD) Unknown Completed [facility] Influenza Virus Vaccine,quad Im,preserve Free 65+ (FLUAD) Unknown Completed [facility] Hep B, Adol or Pedi Dosage Unknown Completed [facility] Hep B, Adol or Pedi Dosage Unknown Completed [facility] Influenza Virus Vaccine Unknown Completed [facility] Pneumococcal Polysaccharide, PPSV23 (PNEUMOVAX) Unknown Completed [facility] H1n1 Vaccine Unknown Completed [facility] Hep B, Adol or Pedi Dosage Unknown Completed [facility] Influenza Virus Vaccine Unknown Completed [facility] Influenza Virus Vaccine Unknown Completed [facility] Influenza Virus Vaccine Unknown Completed [facility] Influenza Virus Vaccine Unknown Completed [facility] Influenza Virus Vaccine (3+ yrs) Unknown Completed [facility] Influenza Virus Vaccine Quad ID 18-64 YRS Unknown Completed [facility] Influenza Virus Vaccine Quad IM Multi-dose 6+ MO Unknown Completed [facility] TDAP Unknown Completed [facility] Influenza Virus Vaccine Quad ID 18-64 YRS Unknown Completed [facility] Influenza Virus Vaccine Quad IM 3+ YRS Unknown Completed [facility] Influenza Virus Vaccine Quad .5 mL IM 6+ MO (FLUZONE/FLULAVAL/F LUARIX) Unknown Completed [facility] Influenza Virus Vaccine Quad .5 mL IM 6+ MO (FLUZONE/FLULAVAL/F LUARIX) Unknown Completed [facility] Pneumococcal 13 Conjugate, PCV13 (Prevnar 13) Unknown Completed [facility] Influenza Virus Vaccine Quad .5 mL IM 6+ MO (FLUZONE/FLULAVAL/F LUARIX) Unknown Completed [facility] SARS-COV-2 COVID-19 PFIZER VACCINE Unknown Completed [facility] SARS-COV-2 COVID-19 PFIZER VACCINE Unknown Completed [facility] Pneumococcal Polysaccharide, PPSV23 (PNEUMOVAX) Unknown Completed [facility] Influenza Virus Vaccine,quad Im,preserve Free 65+ (FLUAD) Unknown Completed [facility] Influenza Virus Vaccine,quad Im,preserve Free 65+ (FLUAD) Unknown Completed [facility] Hep B, Adol or Pedi Dosage Unknown Completed [facility] Hep B, Adol or Pedi Dosage Unknown Completed [facility] Influenza Virus Vaccine Unknown Completed [facility] Pneumococcal Polysaccharide, PPSV23 (PNEUMOVAX) Unknown Completed [facility] H1n1 Vaccine Unknown Completed [facility] Hep B, Adol or Pedi Dosage Unknown Completed [facility] Influenza Virus Vaccine Unknown Completed [facility] Influenza Virus Vaccine Unknown Completed [facility] Influenza Virus Vaccine Unknown Completed [facility] Influenza Virus Vaccine Unknown Completed [facility] Influenza Virus Vaccine (3+ yrs) Unknown Completed [facility] Influenza Virus Vaccine Quad ID 18-64 YRS Unknown Completed [facility] Influenza Virus Vaccine Quad IM Multi-dose 6+ MO Unknown Completed [facility] TDAP Unknown Completed [facility] Influenza Virus Vaccine Quad ID 18-64 YRS Unknown Completed [facility] Influenza Virus Vaccine Quad IM 3+ YRS Unknown Completed [facility] Influenza Virus Vaccine Quad .5 mL IM 6+ MO (FLUZONE/FLULAVAL/F LUARIX) Unknown Completed [facility] Influenza Virus Vaccine Quad .5 mL IM 6+ MO (FLUZONE/FLULAVAL/F LUARIX) Unknown Completed [facility] Pneumococcal 13 Conjugate, PCV13 (Prevnar 13) Unknown Completed [facility] Influenza Virus Vaccine Quad .5 mL IM 6+ MO (FLUZONE/FLULAVAL/F LUARIX) Unknown Completed [facility] SARS-COV-2 COVID-19 PFIZER VACCINE Unknown Completed [facility] SARS-COV-2 COVID-19 PFIZER VACCINE Unknown Completed [facility] Pneumococcal Polysaccharide, PPSV23 (PNEUMOVAX) Unknown Completed [facility] Influenza Virus Vaccine,quad Im,preserve Free 65+ (FLUAD) Unknown Completed [facility] Influenza Virus Vaccine,quad Im,preserve Free 65+ (FLUAD) Unknown Completed [facility] Hep B, Adol or Pedi Dosage Unknown Completed [facility] Hep B, Adol or Pedi Dosage Unknown Completed [facility] Influenza Virus Vaccine Unknown Completed [facility] Pneumococcal Polysaccharide, PPSV23 (PNEUMOVAX) Unknown Completed [facility] H1n1 Vaccine Unknown Completed [facility] Hep B, Adol or Pedi Dosage Unknown Completed [facility] Influenza Virus Vaccine Unknown Completed [facility] Influenza Virus Vaccine Unknown Completed [facility] Influenza Virus Vaccine Unknown Completed [facility] Influenza Virus Vaccine Unknown Completed [facility] Influenza Virus Vaccine (3+ yrs) Unknown Completed [facility] Influenza Virus Vaccine Quad ID 18-64 YRS Unknown Completed [facility] Influenza Virus Vaccine Quad IM Multi-dose 6+ MO Unknown Completed [facility] TDAP Unknown Completed [facility] Influenza Virus Vaccine Quad ID 18-64 YRS Unknown Completed [facility] Influenza Virus Vaccine Quad IM 3+ YRS Unknown Completed [facility] Influenza Virus Vaccine Quad .5 mL IM 6+ MO (FLUZONE/FLULAVAL/F LUARIX) Unknown Completed [facility] Influenza Virus Vaccine Quad .5 mL IM 6+ MO (FLUZONE/FLULAVAL/F LUARIX) Unknown Completed [facility] Pneumococcal 13 Conjugate, PCV13 (Prevnar 13) Unknown Completed [facility] Influenza Virus Vaccine Quad .5 mL IM 6+ MO (FLUZONE/FLULAVAL/F LUARIX) Unknown Completed [facility] SARS-COV-2 COVID-19 PFIZER VACCINE Unknown Completed [facility] SARS-COV-2 COVID-19 PFIZER VACCINE Unknown Completed [facility] Pneumococcal Polysaccharide, PPSV23 (PNEUMOVAX) Unknown Completed [facility] Influenza Virus Vaccine,quad Im,preserve Free 65+ (FLUAD) Unknown Completed [facility] Influenza Virus Vaccine,quad Im,preserve Free 65+ (FLUAD) Unknown Completed [facility] Hep B, Adol or Pedi Dosage Unknown Completed [facility] Hep B, Adol or Pedi Dosage Unknown Completed [facility] Influenza Virus Vaccine Unknown Completed [facility] Pneumococcal Polysaccharide, PPSV23 (PNEUMOVAX) Unknown Completed [facility] H1n1 Vaccine Unknown Completed [facility] Hep B, Adol or Pedi Dosage Unknown Completed [facility] Influenza Virus Vaccine Unknown Completed [facility] Influenza Virus Vaccine Unknown Completed [facility] Influenza Virus Vaccine Unknown Completed [facility] Influenza Virus Vaccine Unknown Completed [facility] Influenza Virus Vaccine (3+ yrs) Unknown Completed [facility] Influenza Virus Vaccine Quad ID 18-64 YRS Unknown Completed [facility] Influenza Virus Vaccine Quad IM Multi-dose 6+ MO Unknown Completed [facility] TDAP Unknown Completed [facility] Influenza Virus Vaccine Quad ID 18-64 YRS Unknown Completed [facility] Influenza Virus Vaccine Quad IM 3+ YRS Unknown Completed [facility] Influenza Virus Vaccine Quad .5 mL IM 6+ MO (FLUZONE/FLULAVAL/F LUARIX) Unknown Completed [facility] Influenza Virus Vaccine Quad .5 mL IM 6+ MO (FLUZONE/FLULAVAL/F LUARIX) Unknown Completed [facility] Pneumococcal 13 Conjugate, PCV13 (Prevnar 13) Unknown Completed [facility] Influenza Virus Vaccine Quad .5 mL IM 6+ MO (FLUZONE/FLULAVAL/F LUARIX) Unknown Completed [facility] SARS-COV-2 COVID-19 PFIZER VACCINE Unknown Completed [facility] SARS-COV-2 COVID-19 PFIZER VACCINE Unknown Completed [facility] Pneumococcal Polysaccharide, PPSV23 (PNEUMOVAX) Unknown Completed [facility] Influenza Virus Vaccine,quad Im,preserve Free 65+ (FLUAD) Unknown Completed [facility] Influenza Virus Vaccine,quad Im,preserve Free 65+ (FLUAD) Unknown Completed [facility] Hep B, Adol or Pedi Dosage Unknown Completed [facility] Hep B, Adol or Pedi Dosage Unknown Completed [facility] Influenza Virus Vaccine Unknown Completed [facility] Pneumococcal Polysaccharide, PPSV23 (PNEUMOVAX) Unknown Completed [facility] H1n1 Vaccine Unknown Completed [facility] Hep B, Adol or Pedi Dosage Unknown Completed [facility] Influenza Virus Vaccine Unknown Completed [facility] Influenza Virus Vaccine Unknown Completed [facility] Influenza Virus Vaccine Unknown Completed [facility] Influenza Virus Vaccine Unknown Completed [facility] Influenza Virus Vaccine (3+ yrs) Unknown Completed [facility] Influenza Virus Vaccine Quad ID 18-64 YRS Unknown Completed [facility] Influenza Virus Vaccine Quad IM Multi-dose 6+ MO Unknown Completed [facility] TDAP Unknown Completed [facility] Influenza Virus Vaccine Quad ID 18-64 YRS Unknown Completed [facility] Influenza Virus Vaccine Quad IM 3+ YRS Unknown Completed [facility] Influenza Virus Vaccine Quad .5 mL IM 6+ MO (FLUZONE/FLULAVAL/F LUARIX) Unknown Completed [facility] Influenza Virus Vaccine Quad .5 mL IM 6+ MO (FLUZONE/FLULAVAL/F LUARIX) Unknown Completed [facility] Pneumococcal 13 Conjugate, PCV13 (Prevnar 13) Unknown Completed [facility] Influenza Virus Vaccine Quad .5 mL IM 6+ MO (FLUZONE/FLULAVAL/F LUARIX) Unknown Completed [facility] SARS-COV-2 COVID-19 PFIZER VACCINE Unknown Completed [facility] SARS-COV-2 COVID-19 PFIZER VACCINE Unknown Completed [facility] Pneumococcal Polysaccharide, PPSV23 (PNEUMOVAX) Unknown Completed [facility] Influenza Virus Vaccine,quad Im,preserve Free 65+ (FLUAD) Unknown Completed [facility] Influenza Virus Vaccine,quad Im,preserve Free 65+ (FLUAD) Unknown Completed [facility] Hep B, Adol or Pedi Dosage Unknown Completed [facility] Hep B, Adol or Pedi Dosage Unknown Completed [facility] Influenza Virus Vaccine Unknown Completed [facility] Pneumococcal Polysaccharide, PPSV23 (PNEUMOVAX) Unknown Completed [facility] H1n1 Vaccine Unknown Completed [facility] Hep B, Adol or Pedi Dosage Unknown Completed [facility] Influenza Virus Vaccine Unknown Completed [facility] Influenza Virus Vaccine Unknown Completed [facility] Influenza Virus Vaccine Unknown Completed [facility] Influenza Virus Vaccine Unknown Completed [facility] Influenza Virus Vaccine (3+ yrs) Unknown Completed [facility] Influenza Virus Vaccine Quad ID 18-64 YRS Unknown Completed [facility] Influenza Virus Vaccine Quad IM Multi-dose 6+ MO Unknown Completed [facility] TDAP Unknown Completed [facility] Influenza Virus Vaccine Quad ID 18-64 YRS Unknown Completed [facility] Influenza Virus Vaccine Quad IM 3+ YRS Unknown Completed [facility] Influenza Virus Vaccine Quad .5 mL IM 6+ MO (FLUZONE/FLULAVAL/F LUARIX) Unknown Completed [facility] Influenza Virus Vaccine Quad .5 mL IM 6+ MO (FLUZONE/FLULAVAL/F LUARIX) Unknown Completed [facility] Pneumococcal 13 Conjugate, PCV13 (Prevnar 13) Unknown Completed [facility] Influenza Virus Vaccine Quad .5 mL IM 6+ MO (FLUZONE/FLULAVAL/F LUARIX) Unknown Completed [facility] SARS-COV-2 COVID-19 PFIZER VACCINE Unknown Completed [facility] SARS-COV-2 COVID-19 PFIZER VACCINE Unknown Completed [facility] Pneumococcal Polysaccharide, PPSV23 (PNEUMOVAX) Unknown Completed [facility] Influenza Virus Vaccine,quad Im,preserve Free 65+ (FLUAD) Unknown Completed [facility] Influenza Virus Vaccine,quad Im,preserve Free 65+ (FLUAD) Unknown Completed [facility] Hep B, Adol or Pedi Dosage Unknown Completed [facility] Hep B, Adol or Pedi Dosage Unknown Completed [facility] Influenza Virus Vaccine Unknown Completed [facility] Pneumococcal Polysaccharide, PPSV23 (PNEUMOVAX) Unknown Completed [facility] H1n1 Vaccine Unknown Completed [facility] Hep B, Adol or Pedi Dosage Unknown Completed [facility] Influenza Virus Vaccine Unknown Completed [facility] Influenza Virus Vaccine Unknown Completed [facility] Influenza Virus Vaccine Unknown Completed [facility] Influenza Virus Vaccine Unknown Completed [facility] Influenza Virus Vaccine (3+ yrs) Unknown Completed [facility] Influenza Virus Vaccine Quad ID 18-64 YRS Unknown Completed [facility] Influenza Virus Vaccine Quad IM Multi-dose 6+ MO Unknown Completed [facility] TDAP Unknown Completed [facility] Influenza Virus Vaccine Quad ID 18-64 YRS Unknown Completed [facility] Influenza Virus Vaccine Quad IM 3+ YRS Unknown Completed [facility] Influenza Virus Vaccine Quad .5 mL IM 6+ MO (FLUZONE/FLULAVAL/F LUARIX) Unknown Completed [facility] Influenza Virus Vaccine Quad .5 mL IM 6+ MO (FLUZONE/FLULAVAL/F LUARIX) Unknown Completed [facility] Pneumococcal 13 Conjugate, PCV13 (Prevnar 13) Unknown Completed [facility] Influenza Virus Vaccine Quad .5 mL IM 6+ MO (FLUZONE/FLULAVAL/F LUARIX) Unknown Completed [facility] SARS-COV-2 COVID-19 PFIZER VACCINE Unknown Completed [facility] SARS-COV-2 COVID-19 PFIZER VACCINE Unknown Completed [facility] Pneumococcal Polysaccharide, PPSV23 (PNEUMOVAX) Unknown Completed [facility] Influenza Virus Vaccine,quad Im,preserve Free 65+ (FLUAD) Unknown Completed [facility] Influenza Virus Vaccine,quad Im,preserve Free 65+ (FLUAD) Unknown Completed [facility] Hep B, Adol or Pedi Dosage Unknown Completed [facility] Hep B, Adol or Pedi Dosage Unknown Completed [facility] Influenza Virus Vaccine Unknown Completed [facility] Pneumococcal Polysaccharide, PPSV23 (PNEUMOVAX) Unknown Completed [facility] H1n1 Vaccine Unknown Completed [facility] Hep B, Adol or Pedi Dosage Unknown Completed [facility] Influenza Virus Vaccine Unknown Completed [facility] Influenza Virus Vaccine Unknown Completed [facility] Influenza Virus Vaccine Unknown Completed [facility] Influenza Virus Vaccine Unknown Completed [facility] Influenza Virus Vaccine (3+ yrs) Unknown Completed [facility] Influenza Virus Vaccine Quad ID 18-64 YRS Unknown Completed [facility] Influenza Virus Vaccine Quad IM Multi-dose 6+ MO Unknown Completed [facility] TDAP Unknown Completed [facility] Influenza Virus Vaccine Quad ID 18-64 YRS Unknown Completed [facility] Influenza Virus Vaccine Quad IM 3+ YRS Unknown Completed [facility] Influenza Virus Vaccine Quad .5 mL IM 6+ MO (FLUZONE/FLULAVAL/F LUARIX) Unknown Completed [facility] Influenza Virus Vaccine Quad .5 mL IM 6+ MO (FLUZONE/FLULAVAL/F LUARIX) Unknown Completed [facility] Pneumococcal 13 Conjugate, PCV13 (Prevnar 13) Unknown Completed [facility] Influenza Virus Vaccine Quad .5 mL IM 6+ MO (FLUZONE/FLULAVAL/F LUARIX) Unknown Completed [facility] SARS-COV-2 COVID-19 PFIZER VACCINE Unknown Completed [facility] SARS-COV-2 COVID-19 PFIZER VACCINE Unknown Completed [facility] Pneumococcal Polysaccharide, PPSV23 (PNEUMOVAX) Unknown Completed [facility] Influenza Virus Vaccine,quad Im,preserve Free 65+ (FLUAD) Unknown Completed [facility] Influenza Virus Vaccine,quad Im,preserve Free 65+ (FLUAD) Unknown Completed [facility] Hep B, Adol or Pedi Dosage Unknown Completed [facility] Hep B, Adol or Pedi Dosage Unknown Completed [facility] Influenza Virus Vaccine Unknown Completed [facility] Pneumococcal Polysaccharide, PPSV23 (PNEUMOVAX) Unknown Completed [facility] H1n1 Vaccine Unknown Completed [facility] Hep B, Adol or Pedi Dosage Unknown Completed [facility] Influenza Virus Vaccine Unknown Completed [facility] Influenza Virus Vaccine Unknown Completed [facility] Influenza Virus Vaccine Unknown Completed [facility] Influenza Virus Vaccine Unknown Completed [facility] Influenza Virus Vaccine (3+ yrs) Unknown Completed [facility] Influenza Virus Vaccine Quad ID 18-64 YRS Unknown Completed [facility] Influenza Virus Vaccine Quad IM Multi-dose 6+ MO Unknown Completed [facility] TDAP Unknown Completed [facility] Influenza Virus Vaccine Quad ID 18-64 YRS Unknown Completed [facility] Influenza Virus Vaccine Quad IM 3+ YRS Unknown Completed [facility] Influenza Virus Vaccine Quad .5 mL IM 6+ MO (FLUZONE/FLULAVAL/F LUARIX) Unknown Completed [facility] Influenza Virus Vaccine Quad .5 mL IM 6+ MO (FLUZONE/FLULAVAL/F LUARIX) Unknown Completed [facility] Pneumococcal 13 Conjugate, PCV13 (Prevnar 13) Unknown Completed [facility] Influenza Virus Vaccine Quad .5 mL IM 6+ MO (FLUZONE/FLULAVAL/F LUARIX) Unknown Completed [facility] SARS-COV-2 COVID-19 PFIZER VACCINE Unknown Completed [facility] SARS-COV-2 COVID-19 PFIZER VACCINE Unknown Completed [facility] Pneumococcal Polysaccharide, PPSV23 (PNEUMOVAX) Unknown Completed [facility] Influenza Virus Vaccine,quad Im,preserve Free 65+ (FLUAD) Unknown Completed [facility] Influenza Virus Vaccine,quad Im,preserve Free 65+ (FLUAD) Unknown Completed [facility] Hep B, Adol or Pedi Dosage Unknown Completed [facility] Hep B, Adol or Pedi Dosage Unknown Completed [facility] Influenza Virus Vaccine Unknown Completed [facility] Pneumococcal Polysaccharide, PPSV23 (PNEUMOVAX) Unknown Completed [facility] H1n1 Vaccine Unknown Completed [facility] Hep B, Adol or Pedi Dosage Unknown Completed [facility] Influenza Virus Vaccine Unknown Completed [facility] Influenza Virus Vaccine Unknown Completed [facility] Influenza Virus Vaccine Unknown Completed [facility] Influenza Virus Vaccine Unknown Completed [facility] Influenza Virus Vaccine (3+ yrs) Unknown Completed [facility] Influenza Virus Vaccine Quad ID 18-64 YRS Unknown Completed [facility] Influenza Virus Vaccine Quad IM Multi-dose 6+ MO Unknown Completed [facility] TDAP Unknown Completed [facility] Influenza Virus Vaccine Quad ID 18-64 YRS Unknown Completed [facility] Influenza Virus Vaccine Quad IM 3+ YRS Unknown Completed [facility] Influenza Virus Vaccine Quad .5 mL IM 6+ MO (FLUZONE/FLULAVAL/F LUARIX) Unknown Completed [facility] Influenza Virus Vaccine Quad .5 mL IM 6+ MO (FLUZONE/FLULAVAL/F LUARIX) Unknown Completed [facility] Pneumococcal 13 Conjugate, PCV13 (Prevnar 13) Unknown Completed [facility] Influenza Virus Vaccine Quad .5 mL IM 6+ MO (FLUZONE/FLULAVAL/F LUARIX) Unknown Completed [facility] SARS-COV-2 COVID-19 PFIZER VACCINE Unknown Completed [facility] SARS-COV-2 COVID-19 PFIZER VACCINE Unknown Completed [facility] Pneumococcal Polysaccharide, PPSV23 (PNEUMOVAX) Unknown Completed [facility] Influenza Virus Vaccine,quad Im,preserve Free 65+ (FLUAD) Unknown Completed [facility] Influenza Virus Vaccine,quad Im,preserve Free 65+ (FLUAD) Unknown Completed [facility] Hep B, Adol or Pedi Dosage Unknown Completed [facility] Hep B, Adol or Pedi Dosage Unknown Completed [facility] Influenza Virus Vaccine Unknown Completed [facility] Pneumococcal Polysaccharide, PPSV23 (PNEUMOVAX) Unknown Completed [facility] H1n1 Vaccine Unknown Completed [facility] Hep B, Adol or Pedi Dosage Unknown Completed [facility] Influenza Virus Vaccine Unknown Completed [facility] Influenza Virus Vaccine Unknown Completed [facility] Influenza Virus Vaccine Unknown Completed [facility] Influenza Virus Vaccine Unknown Completed [facility] Influenza Virus Vaccine (3+ yrs) Unknown Completed [facility] Influenza Virus Vaccine Quad ID 18-64 YRS Unknown Completed [facility] Influenza Virus Vaccine Quad IM Multi-dose 6+ MO Unknown Completed [facility] TDAP Unknown Completed [facility] Influenza Virus Vaccine Quad ID 18-64 YRS Unknown Completed [facility] Influenza Virus Vaccine Quad IM 3+ YRS Unknown Completed [facility] Influenza Virus Vaccine Quad .5 mL IM 6+ MO (FLUZONE/FLULAVAL/F LUARIX) Unknown Completed [facility] Influenza Virus Vaccine Quad .5 mL IM 6+ MO (FLUZONE/FLULAVAL/F LUARIX) Unknown Completed [facility] Pneumococcal 13 Conjugate, PCV13 (Prevnar 13) Unknown Completed [facility] Influenza Virus Vaccine Quad .5 mL IM 6+ MO (FLUZONE/FLULAVAL/F LUARIX) Unknown Completed [facility] SARS-COV-2 COVID-19 PFIZER VACCINE Unknown Completed [facility] SARS-COV-2 COVID-19 PFIZER VACCINE Unknown Completed [facility] Pneumococcal Polysaccharide, PPSV23 (PNEUMOVAX) Unknown Completed [facility] Influenza Virus Vaccine,quad Im,preserve Free 65+ (FLUAD) Unknown Completed [facility] Influenza Virus Vaccine,quad Im,preserve Free 65+ (FLUAD) Unknown Completed [facility] Hep B, Adol or Pedi Dosage Unknown Completed [facility] Hep B, Adol or Pedi Dosage Unknown Completed [facility] Influenza Virus Vaccine Unknown Completed [facility] Pneumococcal Polysaccharide, PPSV23 (PNEUMOVAX) Unknown Completed [facility] H1n1 Vaccine Unknown Completed [facility] Hep B, Adol or Pedi Dosage Unknown Completed [facility] Influenza Virus Vaccine Unknown Completed [facility] Influenza Virus Vaccine Unknown Completed [facility] Influenza Virus Vaccine Unknown Completed [facility] Influenza Virus Vaccine Unknown Completed [facility] Influenza Virus Vaccine (3+ yrs) Unknown Completed [facility] Influenza Virus Vaccine Quad ID 18-64 YRS Unknown Completed [facility] Influenza Virus Vaccine Quad IM Multi-dose 6+ MO Unknown Completed [facility] TDAP Unknown Completed [facility] Influenza Virus Vaccine Quad ID 18-64 YRS Unknown Completed [facility] Influenza Virus Vaccine Quad IM 3+ YRS Unknown Completed [facility] Influenza Virus Vaccine Quad .5 mL IM 6+ MO (FLUZONE/FLULAVAL/F LUARIX) Unknown Completed [facility] Influenza Virus Vaccine Quad .5 mL IM 6+ MO (FLUZONE/FLULAVAL/F LUARIX) Unknown Completed [facility] Pneumococcal 13 Conjugate, PCV13 (Prevnar 13) Unknown Completed [facility] Influenza Virus Vaccine Quad .5 mL IM 6+ MO (FLUZONE/FLULAVAL/F LUARIX) Unknown Completed [facility] SARS-COV-2 COVID-19 PFIZER VACCINE Unknown Completed [facility] SARS-COV-2 COVID-19 PFIZER VACCINE Unknown Completed [facility] Pneumococcal Polysaccharide, PPSV23 (PNEUMOVAX) Unknown Completed [facility] Influenza Virus Vaccine,quad Im,preserve Free 65+ (FLUAD) Unknown Completed [facility] Influenza Virus Vaccine,quad Im,preserve Free 65+ (FLUAD) Unknown Completed [facility] Hep B, Adol or Pedi Dosage Unknown Completed [facility] Hep B, Adol or Pedi Dosage Unknown Completed [facility] Influenza Virus Vaccine Unknown Completed [facility] Pneumococcal Polysaccharide, PPSV23 (PNEUMOVAX) Unknown Completed [facility] H1n1 Vaccine Unknown Completed [facility] Hep B, Adol or Pedi Dosage Unknown Completed [facility] Influenza Virus Vaccine Unknown Completed [facility] Influenza Virus Vaccine Unknown Completed [facility] Influenza Virus Vaccine Unknown Completed [facility] Influenza Virus Vaccine Unknown Completed [facility] Influenza Virus Vaccine (3+ yrs) Unknown Completed [facility] Influenza Virus Vaccine Quad ID 18-64 YRS Unknown Completed [facility] Influenza Virus Vaccine Quad IM Multi-dose 6+ MO Unknown Completed [facility] TDAP Unknown Completed [facility] Influenza Virus Vaccine Quad ID 18-64 YRS Unknown Completed [facility] Influenza Virus Vaccine Quad IM 3+ YRS Unknown Completed [facility] Influenza Virus Vaccine Quad .5 mL IM 6+ MO (FLUZONE/FLULAVAL/F LUARIX) Unknown Completed [facility] Influenza Virus Vaccine Quad .5 mL IM 6+ MO (FLUZONE/FLULAVAL/F LUARIX) Unknown Completed [facility] Pneumococcal 13 Conjugate, PCV13 (Prevnar 13) Unknown Completed [facility] Influenza Virus Vaccine Quad .5 mL IM 6+ MO (FLUZONE/FLULAVAL/F LUARIX) Unknown Completed [facility] SARS-COV-2 COVID-19 PFIZER VACCINE Unknown Completed [facility] SARS-COV-2 COVID-19 PFIZER VACCINE Unknown Completed [facility] Pneumococcal Polysaccharide, PPSV23 (PNEUMOVAX) Unknown Completed [facility] Influenza Virus Vaccine,quad Im,preserve Free 65+ (FLUAD) Unknown Completed [facility] Influenza Virus Vaccine,quad Im,preserve Free 65+ (FLUAD) Unknown Completed [facility] Hep B, Adol or Pedi Dosage Unknown Completed [facility] Hep B, Adol or Pedi Dosage Unknown Completed [facility] Influenza Virus Vaccine Unknown Completed [facility] Pneumococcal Polysaccharide, PPSV23 (PNEUMOVAX) Unknown Completed [facility] H1n1 Vaccine Unknown Completed [facility] Hep B, Adol or Pedi Dosage Unknown Completed [facility] Influenza Virus Vaccine Unknown Completed [facility] Influenza Virus Vaccine Unknown Completed [facility] Influenza Virus Vaccine Unknown Completed [facility] Influenza Virus Vaccine Unknown Completed [facility] Influenza Virus Vaccine (3+ yrs) Unknown Completed [facility] Influenza Virus Vaccine Quad ID 18-64 YRS Unknown Completed [facility] Influenza Virus Vaccine Quad IM Multi-dose 6+ MO Unknown Completed [facility] TDAP Unknown Completed [facility] Influenza Virus Vaccine Quad ID 18-64 YRS Unknown Completed [facility] Influenza Virus Vaccine Quad IM 3+ YRS Unknown Completed [facility] Influenza Virus Vaccine Quad .5 mL IM 6+ MO (FLUZONE/FLULAVAL/F LUARIX) Unknown Completed [facility] Influenza Virus Vaccine Quad .5 mL IM 6+ MO (FLUZONE/FLULAVAL/F LUARIX) Unknown Completed [facility] Pneumococcal 13 Conjugate, PCV13 (Prevnar 13) Unknown Completed [facility] Influenza Virus Vaccine Quad .5 mL IM 6+ MO (FLUZONE/FLULAVAL/F LUARIX) Unknown Completed [facility] SARS-COV-2 COVID-19 PFIZER VACCINE Unknown Completed [facility] SARS-COV-2 COVID-19 PFIZER VACCINE Unknown Completed [facility] Pneumococcal Polysaccharide, PPSV23 (PNEUMOVAX) Unknown Completed [facility] Influenza Virus Vaccine,quad Im,preserve Free 65+ (FLUAD) Unknown Completed [facility] Influenza Virus Vaccine,quad Im,preserve Free 65+ (FLUAD) Unknown Completed [facility] Hep B, Adol or Pedi Dosage Unknown Completed [facility] Hep B, Adol or Pedi Dosage Unknown Completed [facility] Influenza Virus Vaccine Unknown Completed [facility] Pneumococcal Polysaccharide, PPSV23 (PNEUMOVAX) Unknown Completed [facility] H1n1 Vaccine Unknown Completed [facility] Hep B, Adol or Pedi Dosage Unknown Completed [facility] Influenza Virus Vaccine Unknown Completed [facility] Influenza Virus Vaccine Unknown Completed [facility] Influenza Virus Vaccine Unknown Completed [facility] Influenza Virus Vaccine Unknown Completed [facility] Influenza Virus Vaccine (3+ yrs) Unknown Completed [facility] Influenza Virus Vaccine Quad ID 18-64 YRS Unknown Completed [facility] Influenza Virus Vaccine Quad IM Multi-dose 6+ MO Unknown Completed [facility] TDAP Unknown Completed [facility] Influenza Virus Vaccine Quad ID 18-64 YRS Unknown Completed [facility] Influenza Virus Vaccine Quad IM 3+ YRS Unknown Completed [facility] Influenza Virus Vaccine Quad .5 mL IM 6+ MO (FLUZONE/FLULAVAL/F LUARIX) Unknown Completed [facility] Influenza Virus Vaccine Quad .5 mL IM 6+ MO (FLUZONE/FLULAVAL/F LUARIX) Unknown Completed [facility] Pneumococcal 13 Conjugate, PCV13 (Prevnar 13) Unknown Completed [facility] Influenza Virus Vaccine Quad .5 mL IM 6+ MO (FLUZONE/FLULAVAL/F LUARIX) Unknown Completed [facility] SARS-COV-2 COVID-19 PFIZER VACCINE Unknown Completed [facility] SARS-COV-2 COVID-19 PFIZER VACCINE Unknown Completed [facility] Pneumococcal Polysaccharide, PPSV23 (PNEUMOVAX) Unknown Completed [facility] Influenza Virus Vaccine,quad Im,preserve Free 65+ (FLUAD) Unknown Completed [facility] Influenza Virus Vaccine,quad Im,preserve Free 65+ (FLUAD) Unknown Completed [facility] Hep B, Adol or Pedi Dosage Unknown Completed [facility] Hep B, Adol or Pedi Dosage Unknown Completed [facility] Influenza Virus Vaccine Unknown Completed [facility] Pneumococcal Polysaccharide, PPSV23 (PNEUMOVAX) Unknown Completed [facility] H1n1 Vaccine Unknown Completed [facility] Hep B, Adol or Pedi Dosage Unknown Completed [facility] Influenza Virus Vaccine Unknown Completed [facility] Influenza Virus Vaccine Unknown Completed [facility] Influenza Virus Vaccine Unknown Completed [facility] Influenza Virus Vaccine Unknown Completed [facility] Influenza Virus Vaccine (3+ yrs) Unknown Completed [facility] Influenza Virus Vaccine Quad ID 18-64 YRS Unknown Completed [facility] Influenza Virus Vaccine Quad IM Multi-dose 6+ MO Unknown Completed [facility] TDAP Unknown Completed [facility] Influenza Virus Vaccine Quad ID 18-64 YRS Unknown Completed [facility] Influenza Virus Vaccine Quad IM 3+ YRS Unknown Completed [facility] Influenza Virus Vaccine Quad .5 mL IM 6+ MO (FLUZONE/FLULAVAL/F LUARIX) Unknown Completed [facility] Influenza Virus Vaccine Quad .5 mL IM 6+ MO (FLUZONE/FLULAVAL/F LUARIX) Unknown Completed [facility] Pneumococcal 13 Conjugate, PCV13 (Prevnar 13) Unknown Completed [facility] Influenza Virus Vaccine Quad .5 mL IM 6+ MO (FLUZONE/FLULAVAL/F LUARIX) Unknown Completed [facility] SARS-COV-2 COVID-19 PFIZER VACCINE Unknown Completed [facility] SARS-COV-2 COVID-19 PFIZER VACCINE Unknown Completed [facility] Pneumococcal Polysaccharide, PPSV23 (PNEUMOVAX) Unknown Completed [facility] Influenza Virus Vaccine,quad Im,preserve Free 65+ (FLUAD) Unknown Completed [facility] Influenza Virus Vaccine,quad Im,preserve Free 65+ (FLUAD) Unknown Completed [facility] Hep B, Adol or Pedi Dosage Unknown Completed [facility] Hep B, Adol or Pedi Dosage Unknown Completed [facility] Influenza Virus Vaccine Unknown Completed [facility] Pneumococcal Polysaccharide, PPSV23 (PNEUMOVAX) Unknown Completed [facility] H1n1 Vaccine Unknown Completed [facility] Hep B, Adol or Pedi Dosage Unknown Completed [facility] Influenza Virus Vaccine Unknown Completed [facility] Influenza Virus Vaccine Unknown Completed [facility] Influenza Virus Vaccine Unknown Completed [facility] Influenza Virus Vaccine Unknown Completed [facility] Influenza Virus Vaccine (3+ yrs) Unknown Completed [facility] Influenza Virus Vaccine Quad ID 18-64 YRS Unknown Completed [facility] Influenza Virus Vaccine Quad IM Multi-dose 6+ MO Unknown Completed [facility] TDAP Unknown Completed [facility] Influenza Virus Vaccine Quad ID 18-64 YRS Unknown Completed [facility] Influenza Virus Vaccine Quad IM 3+ YRS Unknown Completed [facility] Influenza Virus Vaccine Quad .5 mL IM 6+ MO (FLUZONE/FLULAVAL/F LUARIX) Unknown Completed [facility] Influenza Virus Vaccine Quad .5 mL IM 6+ MO (FLUZONE/FLULAVAL/F LUARIX) Unknown Completed [facility] Pneumococcal 13 Conjugate, PCV13 (Prevnar 13) Unknown Completed [facility] Influenza Virus Vaccine Quad .5 mL IM 6+ MO (FLUZONE/FLULAVAL/F LUARIX) Unknown Completed [facility] SARS-COV-2 COVID-19 PFIZER VACCINE Unknown Completed [facility] SARS-COV-2 COVID-19 PFIZER VACCINE Unknown Completed [facility] Pneumococcal Polysaccharide, PPSV23 (PNEUMOVAX) Unknown Completed [facility] Influenza Virus Vaccine,quad Im,preserve Free 65+ (FLUAD) Unknown Completed [facility] Influenza Virus Vaccine,quad Im,preserve Free 65+ (FLUAD) Unknown Completed [facility] Hep B, Adol or Pedi Dosage Unknown Completed [facility] Hep B, Adol or Pedi Dosage Unknown Completed [facility] Influenza Virus Vaccine Unknown Completed [facility] Pneumococcal Polysaccharide, PPSV23 (PNEUMOVAX) Unknown Completed [facility] H1n1 Vaccine Unknown Completed [facility] Hep B, Adol or Pedi Dosage Unknown Completed [facility] Influenza Virus Vaccine Unknown Completed [facility] Influenza Virus Vaccine Unknown Completed [facility] Influenza Virus Vaccine Unknown Completed [facility] Influenza Virus Vaccine Unknown Completed [facility] Influenza Virus Vaccine (3+ yrs) Unknown Completed [facility] Influenza Virus Vaccine Quad ID 18-64 YRS Unknown Completed [facility] Influenza Virus Vaccine Quad IM Multi-dose 6+ MO Unknown Completed [facility] TDAP Unknown Completed [facility] Influenza Virus Vaccine Quad ID 18-64 YRS Unknown Completed [facility] Influenza Virus Vaccine Quad IM 3+ YRS Unknown Completed [facility] Influenza Virus Vaccine Quad .5 mL IM 6+ MO (FLUZONE/FLULAVAL/F LUARIX) Unknown Completed [facility] Influenza Virus Vaccine Quad .5 mL IM 6+ MO (FLUZONE/FLULAVAL/F LUARIX) Unknown Completed [facility] Pneumococcal 13 Conjugate, PCV13 (Prevnar 13) Unknown Completed [facility] Influenza Virus Vaccine Quad .5 mL IM 6+ MO (FLUZONE/FLULAVAL/F LUARIX) Unknown Completed [facility] SARS-COV-2 COVID-19 PFIZER VACCINE Unknown Completed [facility] SARS-COV-2 COVID-19 PFIZER VACCINE Unknown Completed [facility] Pneumococcal Polysaccharide, PPSV23 (PNEUMOVAX) Unknown Completed [facility] Influenza Virus Vaccine,quad Im,preserve Free 65+ (FLUAD) Unknown Completed [facility] Influenza Virus Vaccine,quad Im,preserve Free 65+ (FLUAD) Unknown Completed [facility] Hep B, Adol or Pedi Dosage Unknown Completed [facility] Hep B, Adol or Pedi Dosage Unknown Completed [facility] Influenza Virus Vaccine Unknown Completed [facility] Pneumococcal Polysaccharide, PPSV23 (PNEUMOVAX) Unknown Completed [facility] H1n1 Vaccine Unknown Completed [facility] Hep B, Adol or Pedi Dosage Unknown Completed [facility] Influenza Virus Vaccine Unknown Completed [facility] Influenza Virus Vaccine Unknown Completed [facility] Influenza Virus Vaccine Unknown Completed [facility] Influenza Virus Vaccine Unknown Completed [facility] Influenza Virus Vaccine (3+ yrs) Unknown Completed [facility] Influenza Virus Vaccine Quad ID 18-64 YRS Unknown Completed [facility] Influenza Virus Vaccine Quad IM Multi-dose 6+ MO Unknown Completed [facility] TDAP Unknown Completed [facility] Influenza Virus Vaccine Quad ID 18-64 YRS Unknown Completed [facility] Influenza Virus Vaccine Quad IM 3+ YRS Unknown Completed [facility] Influenza Virus Vaccine Quad .5 mL IM 6+ MO (FLUZONE/FLULAVAL/F LUARIX) Unknown Completed [facility] Influenza Virus Vaccine Quad .5 mL IM 6+ MO (FLUZONE/FLULAVAL/F LUARIX) Unknown Completed [facility] Pneumococcal 13 Conjugate, PCV13 (Prevnar 13) Unknown Completed [facility] Influenza Virus Vaccine Quad .5 mL IM 6+ MO (FLUZONE/FLULAVAL/F LUARIX) Unknown Completed [facility] SARS-COV-2 COVID-19 PFIZER VACCINE Unknown Completed [facility] SARS-COV-2 COVID-19 PFIZER VACCINE Unknown Completed [facility] Pneumococcal Polysaccharide, PPSV23 (PNEUMOVAX) Unknown Completed [facility] Influenza Virus Vaccine,quad Im,preserve Free 65+ (FLUAD) Unknown Completed [facility] Influenza Virus Vaccine,quad Im,preserve Free 65+ (FLUAD) Unknown Completed [facility] Hep B, Adol or Pedi Dosage Unknown Completed [facility] Hep B, Adol or Pedi Dosage Unknown Completed [facility] Influenza Virus Vaccine Unknown Completed [facility] Pneumococcal Polysaccharide, PPSV23 (PNEUMOVAX) Unknown Completed [facility] H1n1 Vaccine Unknown Completed [facility] Hep B, Adol or Pedi Dosage Unknown Completed [facility] Influenza Virus Vaccine Unknown Completed [facility] Influenza Virus Vaccine Unknown Completed [facility] Influenza Virus Vaccine Unknown Completed [facility] Influenza Virus Vaccine Unknown Completed [facility] Influenza Virus Vaccine (3+ yrs) Unknown Completed [facility] Influenza Virus Vaccine Quad ID 18-64 YRS Unknown Completed [facility] Influenza Virus Vaccine Quad IM Multi-dose 6+ MO Unknown Completed [facility] TDAP Unknown Completed [facility] Influenza Virus Vaccine Quad ID 18-64 YRS Unknown Completed [facility] Influenza Virus Vaccine Quad IM 3+ YRS Unknown Completed [facility] Influenza Virus Vaccine Quad .5 mL IM 6+ MO (FLUZONE/FLULAVAL/F LUARIX) Unknown Completed [facility] Influenza Virus Vaccine Quad .5 mL IM 6+ MO (FLUZONE/FLULAVAL/F LUARIX) Unknown Completed [facility] Pneumococcal 13 Conjugate, PCV13 (Prevnar 13) Unknown Completed [facility] Influenza Virus Vaccine Quad .5 mL IM 6+ MO (FLUZONE/FLULAVAL/F LUARIX) Unknown Completed [facility] SARS-COV-2 COVID-19 PFIZER VACCINE Unknown Completed [facility] SARS-COV-2 COVID-19 PFIZER VACCINE Unknown Completed [facility] Pneumococcal Polysaccharide, PPSV23 (PNEUMOVAX) Unknown Completed [facility] Influenza Virus Vaccine,quad Im,preserve Free 65+ (FLUAD) Unknown Completed [facility] Influenza Virus Vaccine,quad Im,preserve Free 65+ (FLUAD) Unknown Completed [facility] Hep B, Adol or Pedi Dosage Unknown Completed [facility] Hep B, Adol or Pedi Dosage Unknown Completed [facility] Influenza Virus Vaccine Unknown Completed [facility] Pneumococcal Polysaccharide, PPSV23 (PNEUMOVAX) Unknown Completed [facility] H1n1 Vaccine Unknown Completed [facility] Hep B, Adol or Pedi Dosage Unknown Completed [facility] Influenza Virus Vaccine Unknown Completed [facility] Influenza Virus Vaccine Unknown Completed [facility] Influenza Virus Vaccine Unknown Completed [facility] Influenza Virus Vaccine Unknown Completed [facility] Influenza Virus Vaccine (3+ yrs) Unknown Completed [facility] Influenza Virus Vaccine Quad ID 18-64 YRS Unknown Completed [facility] Influenza Virus Vaccine Quad IM Multi-dose 6+ MO Unknown Completed [facility] TDAP Unknown Completed [facility] Influenza Virus Vaccine Quad ID 18-64 YRS Unknown Completed [facility] Influenza Virus Vaccine Quad IM 3+ YRS Unknown Completed [facility] Influenza Virus Vaccine Quad .5 mL IM 6+ MO (FLUZONE/FLULAVAL/F LUARIX) Unknown Completed [facility] Influenza Virus Vaccine Quad .5 mL IM 6+ MO (FLUZONE/FLULAVAL/F LUARIX) Unknown Completed [facility] Pneumococcal 13 Conjugate, PCV13 (Prevnar 13) Unknown Completed [facility] Influenza Virus Vaccine Quad .5 mL IM 6+ MO (FLUZONE/FLULAVAL/F LUARIX) Unknown Completed [facility] SARS-COV-2 COVID-19 PFIZER VACCINE Unknown Completed [facility] SARS-COV-2 COVID-19 PFIZER VACCINE Unknown Completed [facility] Pneumococcal Polysaccharide, PPSV23 (PNEUMOVAX) Unknown Completed [facility] Influenza Virus Vaccine,quad Im,preserve Free 65+ (FLUAD) Unknown Completed [facility] Influenza Virus Vaccine,quad Im,preserve Free 65+ (FLUAD) Unknown Completed [facility] Hep B, Adol or Pedi Dosage Unknown Completed [facility] Hep B, Adol or Pedi Dosage Unknown Completed [facility] Influenza Virus Vaccine Unknown Completed [facility] Pneumococcal Polysaccharide, PPSV23 (PNEUMOVAX) Unknown Completed [facility] H1n1 Vaccine Unknown Completed [facility] Hep B, Adol or Pedi Dosage Unknown Completed [facility] Influenza Virus Vaccine Unknown Completed [facility] Influenza Virus Vaccine Unknown Completed [facility] Influenza Virus Vaccine Unknown Completed [facility] Influenza Virus Vaccine Unknown Completed [facility] Influenza Virus Vaccine (3+ yrs) Unknown Completed [facility] Influenza Virus Vaccine Quad ID 18-64 YRS Unknown Completed [facility] Influenza Virus Vaccine Quad IM Multi-dose 6+ MO Unknown Completed [facility] TDAP Unknown Completed [facility] Influenza Virus Vaccine Quad ID 18-64 YRS Unknown Completed [facility] Influenza Virus Vaccine Quad IM 3+ YRS Unknown Completed [facility] Influenza Virus Vaccine Quad .5 mL IM 6+ MO (FLUZONE/FLULAVAL/F LUARIX) Unknown Completed [facility] Influenza Virus Vaccine Quad .5 mL IM 6+ MO (FLUZONE/FLULAVAL/F LUARIX) Unknown Completed [facility] Pneumococcal 13 Conjugate, PCV13 (Prevnar 13) Unknown Completed [facility] Influenza Virus Vaccine Quad .5 mL IM 6+ MO (FLUZONE/FLULAVAL/F LUARIX) Unknown Completed [facility] SARS-COV-2 COVID-19 PFIZER VACCINE Unknown Completed [facility] SARS-COV-2 COVID-19 PFIZER VACCINE Unknown Completed [facility] Pneumococcal Polysaccharide, PPSV23 (PNEUMOVAX) Unknown Completed [facility] Influenza Virus Vaccine,quad Im,preserve Free 65+ (FLUAD) Unknown Completed [facility] Influenza Virus Vaccine,quad Im,preserve Free 65+ (FLUAD) Unknown Completed [facility] Hep B, Adol or Pedi Dosage Unknown Completed [facility] Hep B, Adol or Pedi Dosage Unknown Completed [facility] Influenza Virus Vaccine Unknown Completed [facility] Pneumococcal Polysaccharide, PPSV23 (PNEUMOVAX) Unknown Completed [facility] H1n1 Vaccine Unknown Completed [facility] Hep B, Adol or Pedi Dosage Unknown Completed [facility] Influenza Virus Vaccine Unknown Completed [facility] Influenza Virus Vaccine Unknown Completed [facility] Influenza Virus Vaccine Unknown Completed [facility] Influenza Virus Vaccine Unknown Completed [facility] Influenza Virus Vaccine (3+ yrs) Unknown Completed [facility] Influenza Virus Vaccine Quad ID 18-64 YRS Unknown Completed [facility] Influenza Virus Vaccine Quad IM Multi-dose 6+ MO Unknown Completed [facility] TDAP Unknown Completed [facility] Influenza Virus Vaccine Quad ID 18-64 YRS Unknown Completed [facility] Influenza Virus Vaccine Quad IM 3+ YRS Unknown Completed [facility] Influenza Virus Vaccine Quad .5 mL IM 6+ MO (FLUZONE/FLULAVAL/F LUARIX) Unknown Completed [facility] Influenza Virus Vaccine Quad .5 mL IM 6+ MO (FLUZONE/FLULAVAL/F LUARIX) Unknown Completed [facility] Pneumococcal 13 Conjugate, PCV13 (Prevnar 13) Unknown Completed [facility] Influenza Virus Vaccine Quad .5 mL IM 6+ MO (FLUZONE/FLULAVAL/F LUARIX) Unknown Completed [facility] SARS-COV-2 COVID-19 PFIZER VACCINE Unknown Completed [facility] SARS-COV-2 COVID-19 PFIZER VACCINE Unknown Completed [facility] Pneumococcal Polysaccharide, PPSV23 (PNEUMOVAX) Unknown Completed [facility] Influenza Virus Vaccine,quad Im,preserve Free 65+ (FLUAD) Unknown Completed [facility] Influenza Virus Vaccine,quad Im,preserve Free 65+ (FLUAD) Unknown Completed [facility] Hep B, Adol or Pedi Dosage Unknown Completed [facility] Hep B, Adol or Pedi Dosage Unknown Completed [facility] Influenza Virus Vaccine Unknown Completed [facility] Pneumococcal Polysaccharide, PPSV23 (PNEUMOVAX) Unknown Completed [facility] H1n1 Vaccine Unknown Completed [facility] Hep B, Adol or Pedi Dosage Unknown Completed [facility] Influenza Virus Vaccine Unknown Completed [facility] Influenza Virus Vaccine Unknown Completed [facility] Influenza Virus Vaccine Unknown Completed [facility] Influenza Virus Vaccine Unknown Completed [facility] Influenza Virus Vaccine (3+ yrs) Unknown Completed [facility] Influenza Virus Vaccine Quad ID 18-64 YRS Unknown Completed [facility] Influenza Virus Vaccine Quad IM Multi-dose 6+ MO Unknown Completed [facility] TDAP Unknown Completed [facility] Influenza Virus Vaccine Quad ID 18-64 YRS Unknown Completed [facility] Influenza Virus Vaccine Quad IM 3+ YRS Unknown Completed [facility] Influenza Virus Vaccine Quad .5 mL IM 6+ MO (FLUZONE/FLULAVAL/F LUARIX) Unknown Completed [facility] Influenza Virus Vaccine Quad .5 mL IM 6+ MO (FLUZONE/FLULAVAL/F LUARIX) Unknown Completed [facility] Pneumococcal 13 Conjugate, PCV13 (Prevnar 13) Unknown Completed [facility] Influenza Virus Vaccine Quad .5 mL IM 6+ MO (FLUZONE/FLULAVAL/F LUARIX) Unknown Completed [facility] SARS-COV-2 COVID-19 PFIZER VACCINE Unknown Completed [facility] SARS-COV-2 COVID-19 PFIZER VACCINE Unknown Completed [facility] Pneumococcal Polysaccharide, PPSV23 (PNEUMOVAX) Unknown Completed [facility] Influenza Virus Vaccine,quad Im,preserve Free 65+ (FLUAD) Unknown Completed [facility] Influenza Virus Vaccine,quad Im,preserve Free 65+ (FLUAD) Unknown Completed [facility] Hep B, Adol or Pedi Dosage Unknown Completed [facility] Hep B, Adol or Pedi Dosage Unknown Completed [facility] Influenza Virus Vaccine Unknown Completed [facility] Pneumococcal Polysaccharide, PPSV23 (PNEUMOVAX) Unknown Completed [facility] H1n1 Vaccine Unknown Completed [facility] Hep B, Adol or Pedi Dosage Unknown Completed [facility] Influenza Virus Vaccine Unknown Completed [facility] Influenza Virus Vaccine Unknown Completed [facility] Influenza Virus Vaccine Unknown Completed [facility] Influenza Virus Vaccine Unknown Completed [facility] Influenza Virus Vaccine (3+ yrs) Unknown Completed [facility] Influenza Virus Vaccine Quad ID 18-64 YRS Unknown Completed [facility] Influenza Virus Vaccine Quad IM Multi-dose 6+ MO Unknown Completed [facility] TDAP Unknown Completed [facility] Influenza Virus Vaccine Quad ID 18-64 YRS Unknown Completed [facility] Influenza Virus Vaccine Quad IM 3+ YRS Unknown Completed [facility] Influenza Virus Vaccine Quad .5 mL IM 6+ MO (FLUZONE/FLULAVAL/F LUARIX) Unknown Completed [facility] Influenza Virus Vaccine Quad .5 mL IM 6+ MO (FLUZONE/FLULAVAL/F LUARIX) Unknown Completed [facility] Pneumococcal 13 Conjugate, PCV13 (Prevnar 13) Unknown Completed [facility] Influenza Virus Vaccine Quad .5 mL IM 6+ MO (FLUZONE/FLULAVAL/F LUARIX) Unknown Completed [facility] SARS-COV-2 COVID-19 PFIZER VACCINE Unknown Completed [facility] SARS-COV-2 COVID-19 PFIZER VACCINE Unknown Completed [facility] Pneumococcal Polysaccharide, PPSV23 (PNEUMOVAX) Unknown Completed [facility] Influenza Virus Vaccine,quad Im,preserve Free 65+ (FLUAD) Unknown Completed [facility] Influenza Virus Vaccine,quad Im,preserve Free 65+ (FLUAD) Unknown Completed [facility] Hep B, Adol or Pedi Dosage Unknown Completed [facility] Hep B, Adol or Pedi Dosage Unknown Completed [facility] Influenza Virus Vaccine Unknown Completed [facility] Pneumococcal Polysaccharide, PPSV23 (PNEUMOVAX) Unknown Completed [facility] H1n1 Vaccine Unknown Completed [facility] Hep B, Adol or Pedi Dosage Unknown Completed [facility] Influenza Virus Vaccine Unknown Completed [facility] Influenza Virus Vaccine Unknown Completed [facility] Influenza Virus Vaccine Unknown Completed [facility] Influenza Virus Vaccine Unknown Completed [facility] Influenza Virus Vaccine (3+ yrs) Unknown Completed [facility] Influenza Virus Vaccine Quad ID 18-64 YRS Unknown Completed [facility] Influenza Virus Vaccine Quad IM Multi-dose 6+ MO Unknown Completed [facility] TDAP Unknown Completed [facility] Influenza Virus Vaccine Quad ID 18-64 YRS Unknown Completed [facility] Influenza Virus Vaccine Quad IM 3+ YRS Unknown Completed [facility] Influenza Virus Vaccine Quad .5 mL IM 6+ MO (FLUZONE/FLULAVAL/F LUARIX) Unknown Completed [facility] Influenza Virus Vaccine Quad .5 mL IM 6+ MO (FLUZONE/FLULAVAL/F LUARIX) Unknown Completed [facility] Pneumococcal 13 Conjugate, PCV13 (Prevnar 13) Unknown Completed [facility] Influenza Virus Vaccine Quad .5 mL IM 6+ MO (FLUZONE/FLULAVAL/F LUARIX) Unknown Completed [facility] SARS-COV-2 COVID-19 PFIZER VACCINE Unknown Completed [facility] SARS-COV-2 COVID-19 PFIZER VACCINE Unknown Completed [facility] Pneumococcal Polysaccharide, PPSV23 (PNEUMOVAX) Unknown Completed [facility] Influenza Virus Vaccine,quad Im,preserve Free 65+ (FLUAD) Unknown Completed [facility] Influenza Virus Vaccine,quad Im,preserve Free 65+ (FLUAD) Unknown Completed [facility] Hep B, Adol or Pedi Dosage Unknown Completed [facility] Hep B, Adol or Pedi Dosage Unknown Completed [facility] Influenza Virus Vaccine Unknown Completed [facility] Pneumococcal Polysaccharide, PPSV23 (PNEUMOVAX) Unknown Completed [facility] H1n1 Vaccine Unknown Completed [facility] Hep B, Adol or Pedi Dosage Unknown Completed [facility] Influenza Virus Vaccine Unknown Completed [facility] Influenza Virus Vaccine Unknown Completed [facility] Influenza Virus Vaccine Unknown Completed [facility] Influenza Virus Vaccine Unknown Completed [facility] Influenza Virus Vaccine (3+ yrs) Unknown Completed [facility] Influenza Virus Vaccine Quad ID 18-64 YRS Unknown Completed [facility] Influenza Virus Vaccine Quad IM Multi-dose 6+ MO Unknown Completed [facility] [facility] TDAP Unknown Completed [facility] Influenza Virus Vaccine Quad ID 18-64 YRS Unknown Completed [facility] Influenza Virus Vaccine Quad IM 3+ YRS Unknown Completed [facility] Influenza Virus Vaccine Quad .5 mL IM 6+ MO (FLUZONE/FLULAVAL/F LUARIX) Unknown Completed [facility] Influenza Virus Vaccine Quad .5 mL IM 6+ MO (FLUZONE/FLULAVAL/F LUARIX) Unknown Completed [facility] Pneumococcal 13 Conjugate, PCV13 (Prevnar 13) Unknown Completed [facility] Influenza Virus Vaccine Quad .5 mL IM 6+ MO (FLUZONE/FLULAVAL/F LUARIX) Unknown Completed [facility] SARS-COV-2 COVID-19 PFIZER VACCINE Unknown Completed [facility] SARS-COV-2 COVID-19 PFIZER VACCINE Unknown Completed [facility] Pneumococcal Polysaccharide, PPSV23 (PNEUMOVAX) Unknown Completed [facility] Influenza Virus Vaccine,quad Im,preserve Free 65+ (FLUAD) Unknown Completed [facility] Influenza Virus Vaccine,quad Im,preserve Free 65+ (FLUAD) Unknown Completed [facility] Hep B, Adol or Pedi Dosage Unknown Completed [facility] Hep B, Adol or Pedi Dosage Unknown Completed [facility] Influenza Virus Vaccine Unknown Completed [facility] Pneumococcal Polysaccharide, PPSV23 (PNEUMOVAX) Unknown Completed [facility] H1n1 Vaccine Unknown Completed [facility] Hep B, Adol or Pedi Dosage Unknown Completed [facility] Influenza Virus Vaccine Unknown Completed [facility] Influenza Virus Vaccine Unknown Completed [facility] Influenza Virus Vaccine Unknown Completed [facility] Influenza Virus Vaccine Unknown Completed [facility] Influenza Virus Vaccine (3+ yrs) Unknown Completed [facility] Influenza Virus Vaccine Quad ID 18-64 YRS Unknown Completed [facility] Influenza Virus Vaccine Quad IM Multi-dose 6+ MO Unknown Completed [facility] TDAP Unknown Completed [facility] Influenza Virus Vaccine Quad ID 18-64 YRS Unknown Completed [facility] Influenza Virus Vaccine Quad IM 3+ YRS Unknown Completed [facility] Influenza Virus Vaccine Quad .5 mL IM 6+ MO (FLUZONE/FLULAVAL/F LUARIX) Unknown Completed [facility] Influenza Virus Vaccine Quad .5 mL IM 6+ MO (FLUZONE/FLULAVAL/F LUARIX) Unknown Completed [facility] Pneumococcal 13 Conjugate, PCV13 (Prevnar 13) Unknown Completed [facility] Influenza Virus Vaccine Quad .5 mL IM 6+ MO (FLUZONE/FLULAVAL/F LUARIX) Unknown Completed [facility] SARS-COV-2 COVID-19 PFIZER VACCINE Unknown Completed [facility] SARS-COV-2 COVID-19 PFIZER VACCINE Unknown Completed [facility] Pneumococcal Polysaccharide, PPSV23 (PNEUMOVAX) Unknown Completed [facility] Influenza Virus Vaccine,quad Im,preserve Free 65+ (FLUAD) Unknown Completed [facility] Influenza Virus Vaccine,quad Im,preserve Free 65+ (FLUAD) Unknown Completed [facility] Hep B, Adol or Pedi Dosage Unknown Completed [facility] Hep B, Adol or Pedi Dosage Unknown Completed [facility] Influenza Virus Vaccine Unknown Completed [facility] Pneumococcal Polysaccharide, PPSV23 (PNEUMOVAX) Unknown Completed [facility] H1n1 Vaccine Unknown Completed [facility] Hep B, Adol or Pedi Dosage Unknown Completed [facility] Influenza Virus Vaccine Unknown Completed [facility] Influenza Virus Vaccine Unknown Completed [facility] Influenza Virus Vaccine Unknown Completed [facility] Influenza Virus Vaccine Unknown Completed [facility] Influenza Virus Vaccine (3+ yrs) Unknown Completed [facility] Influenza Virus Vaccine Quad ID 18-64 YRS Unknown Completed [facility] Influenza Virus Vaccine Quad IM Multi-dose 6+ MO Unknown Completed [facility] TDAP Unknown Completed [facility] Influenza Virus Vaccine Quad ID 18-64 YRS Unknown Completed [facility] Influenza Virus Vaccine Quad IM 3+ YRS Unknown Completed [facility] Influenza Virus Vaccine Quad .5 mL IM 6+ MO (FLUZONE/FLULAVAL/F LUARIX) Unknown Completed [facility] Influenza Virus Vaccine Quad .5 mL IM 6+ MO (FLUZONE/FLULAVAL/F LUARIX) Unknown Completed [facility] Pneumococcal 13 Conjugate, PCV13 (Prevnar 13) Unknown Completed [facility] Influenza Virus Vaccine Quad .5 mL IM 6+ MO (FLUZONE/FLULAVAL/F LUARIX) Unknown Completed [facility] SARS-COV-2 COVID-19 PFIZER VACCINE Unknown Completed [facility] SARS-COV-2 COVID-19 PFIZER VACCINE Unknown Completed [facility] Pneumococcal Polysaccharide, PPSV23 (PNEUMOVAX) Unknown Completed [facility] Influenza Virus Vaccine,quad Im,preserve Free 65+ (FLUAD) Unknown Completed [facility] Influenza Virus Vaccine,quad Im,preserve Free 65+ (FLUAD) Unknown Completed [facility] Vital Signs Vital Name Observation Time Observation Value Comments S ource Systolic blood pressure 2024-06-09 21:30:00 161 mm[Hg] [facility] Diastolic blood pressure 2024-06-09 21:30:00 78 mm[Hg] [facility] Heart rate 2024-06-09 21:30:00 67 /min [facility] Respiratory rate 2024-06-09 21:30:00 17 /min [facility] Oxygen saturation in Arterial blood by Pulse oximetry 2024-06-09 21:30:00 98 /min [facility] Body temperature 2024-06-09 18:20:00 36.78 Jane [facility] Body height 2024-06-09 18:20:00 147.3 cm [facility] Body weight 2024-06-09 18:20:00 66.225 kg [facility] BMI 2024-06-09 18:20:00 30.51 kg/m2 [facility] Systolic blood pressure 2024-06-08 20:50:00 143 mm[Hg] [facility] Diastolic blood pressure 2024-06-08 20:50:00 83 mm[Hg] [facility] Heart rate 2024-06-08 20:50:00 67 /min [facility] Respiratory rate 2024-06-08 20:50:00 18 /min [facility] Body height 2024-06-08 20:50:00 149.9 cm [facility] Body weight 2024-06-08 20:50:00 66.951 kg [facility] BMI 2024-06-08 20:50:00 29.81 kg/m2 [facility] Oxygen saturation in Arterial blood by Pulse oximetry 2024-06-08 20:50:00 96 /min [facility] Systolic blood pressure 2024-05-27 14:35:00 154 mm[Hg] [facility] Diastolic blood pressure 2024-05-27 14:35:00 92 mm[Hg] [facility] Heart rate 2024-05-27 14:34:00 63 /min [facility] Body temperature 2024-05-27 14:34:00 37.22 Jane [facility] Respiratory rate 2024-05-27 14:34:00 18 /min [facility] Body height 2024-05-27 14:34:00 149.9 cm [facility] Body weight 2024-05-27 14:34:00 66.588 kg [facility] BMI 2024-05-27 14:34:00 29.65 kg/m2 [facility] Oxygen saturation in Arterial blood by Pulse oximetry 2024-05-27 14:34:00 98 /min [facility] Systolic blood pressure 2024-03-07 19:59:00 125 mm[Hg] [facility] Diastolic blood pressure 2024-03-07 19:59:00 74 mm[Hg] [facility] Heart rate 2024-03-07 19:59:00 60 /min [facility] Oxygen saturation in Arterial blood by Pulse oximetry 2024-03-07 19:59:00 99 /min [facility] Body temperature 2024-03-07 19:58:00 36.39 Jane [facility] Body height 2024-03-07 19:58:00 149.9 cm [facility] Body weight 2024-03-07 19:58:00 65.772 kg [facility] BMI 2024-03-07 19:58:00 29.29 kg/m2 [facility] Systolic blood pressure 2024-02-22 21:08:00 116 mm[Hg] [facility] Diastolic blood pressure 2024-02-22 21:08:00 68 mm[Hg] [facility] Heart rate 2024-02-22 21:08:00 63 /min [facility] Body temperature 2024-02-22 21:08:00 36.61 Jane [facility] Respiratory rate 2024-02-22 21:08:00 18 /min [facility] Body height 2024-02-22 21:08:00 149.9 cm [facility] Body weight 2024-02-22 21:08:00 68.13 kg [facility] BMI 2024-02-22 21:08:00 30.34 kg/m2 [facility] Oxygen saturation in Arterial blood by Pulse oximetry 2024-02-22 21:08:00 98 /min [facility] Systolic blood pressure 2023-12-24 15:51:00 120 mm[Hg] [facility] Diastolic blood pressure 2023-12-24 15:51:00 54 mm[Hg] [facility] Heart rate 2023-12-24 15:51:00 54 /min [facility] Body temperature 2023-12-24 15:51:00 37.06 Jane [facility] Respiratory rate 2023-12-24 15:51:00 16 /min [facility] Body height 2023-12-24 15:51:00 149.9 cm [facility] Body weight 2023-12-24 15:51:00 66.996 kg [facility] BMI 2023-12-24 15:51:00 29.83 kg/m2 [facility] Oxygen saturation in Arterial blood by Pulse oximetry 2023-12-24 15:51:00 97 /min [facility] Systolic blood pressure 2023-12-10 16:36:00 119 mm[Hg] [facility] Diastolic blood pressure 2023-12-10 16:36:00 64 mm[Hg] [facility] Heart rate 2023-12-10 16:36:00 61 /min [facility] Body height 2023-12-10 16:36:00 149.9 cm [facility] Body weight 2023-12-10 16:36:00 66.633 kg [facility] BMI 2023-12-10 16:36:00 29.67 kg/m2 [facility] Oxygen saturation in Arterial blood by Pulse oximetry 2023-12-10 16:36:00 97 /min [facility] Systolic blood pressure 2023-10-08 22:20:00 126 mm[Hg] [facility] Diastolic blood pressure 2023-10-08 22:20:00 72 mm[Hg] [facility] Heart rate 2023-10-08 22:20:00 84 /[facility] 2023-10-08 22:20:00 16 /min [facility] Body height 2023-10-08 22:20:00 149.9 cm [facility] Body weight 2023-10-08 22:20:00 67.161 kg [facility] BMI 2023-10-08 22:20:00 29.91 kg/m2 [facility] Systolic blood pressure 2023-09-16 20:32:00 108 mm[Hg] [facility] Diastolic blood pressure 2023-09-16 20:32:00 71 mm[Hg] [facility] Heart rate 2023-09-16 20:32:00 52 /min [facility] Body height 2023-09-16 20:32:00 149.9 cm [facility] Body weight 2023-09-16 20:32:00 65.318 kg [facility] BMI 2023-09-16 20:32:00 29.08 kg/m2 [facility] Oxygen saturation in Arterial blood by Pulse oximetry 2023-09-16 20:32:00 98 /min [facility] Systolic blood pressure 2023-08-20 20:49:00 130 mm[Hg] [facility] Diastolic blood pressure 2023-08-20 20:49:00 79 mm[Hg] [facility] Heart rate 2023-08-20 20:49:00 61 /min [facility] Oxygen saturation in Arterial blood by Pulse oximetry 2023-08-20 20:49:00 97 /min [facility] Body temperature 2023-08-20 20:48:00 37.17 Jane [facility] Body height 2023-08-20 20:48:00 149.9 cm [facility] Body weight 2023-08-20 20:48:00 66.225 kg [facility] BMI 2023-08-20 20:48:00 29.49 kg/m2 [facility] Systolic blood pressure 2023-06-18 14:30:00 126 mm[Hg] [facility] Diastolic blood pressure 2023-06-18 14:30:00 72 mm[Hg] [facility] Heart rate 2023-06-18 14:30:00 96 /min [facility] Body temperature 2023-06-18 14:30:00 37 Jane [facility] Respiratory rate 2023-06-18 14:30:00 16 /min [facility] Body height 2023-06-18 14:30:00 149.9 cm [facility] Body weight 2023-06-18 14:30:00 65.772 kg [facility] BMI 2023-06-18 14:30:00 29.29 kg/m2 [facility] Oxygen saturation in Arterial blood by Pulse oximetry 2023-06-18 14:30:00 98 /min [facility] Body weight 2023-06-11 19:16:00 65.772 kg [facility] BMI 2023-06-11 19:16:00 29.29 kg/m2 [facility] Systolic blood pressure 2023-06-05 20:45:00 111 mm[Hg] [facility] Diastolic blood pressure 2023-06-05 20:45:00 73 mm[Hg] [facility] Heart rate 2023-06-05 20:45:00 56 /min [facility] Body height 2023-06-05 20:45:00 149.9 cm [facility] Body weight 2023-06-05 20:45:00 66.18 kg [facility] BMI 2023-06-05 20:45:00 29.47 kg/m2 [facility] Systolic blood pressure 2023-06-02 20:27:00 105 mm[Hg] [facility] Diastolic blood pressure 2023-06-02 20:27:00 70 mm[Hg] [facility] Heart rate 2023-06-02 20:27:00 70 /min [facility] Body height 2023-06-02 20:27:00 149.9 cm [facility] Body weight 2023-06-02 20:27:00 65.681 kg [facility] BMI 2023-06-02 20:27:00 29.25 kg/m2 [facility] Oxygen saturation in Arterial blood by Pulse oximetry 2023-06-02 20:27:00 99 /min [facility] Systolic blood pressure 2023-05-01 14:17:00 130 mm[Hg] [facility] Diastolic blood pressure 2023-05-01 14:17:00 62 mm[Hg] [facility] Heart rate 2023-05-01 14:17:00 60 /min [facility] Respiratory rate 2023-05-01 14:17:00 18 /min [facility] Body height 2023-05-01 14:17:00 149.9 cm [facility] Body weight 2023-05-01 14:17:00 65.862 kg [facility] BMI 2023-05-01 14:17:00 29.33 kg/m2 [facility] Oxygen saturation in Arterial blood by Pulse oximetry 2023-05-01 14:17:00 98 /min [facility] Systolic blood pressure 2023-04-03 14:04:00 132 mm[Hg] [facility] Diastolic blood pressure 2023-04-03 14:04:00 82 mm[Hg] [facility] Heart rate 2023-04-03 14:04:00 72 /min [facility] Body temperature 2023-04-03 14:04:00 36.78 Jane [facility] Body height 2023-04-03 14:04:00 149.9 cm [facility] Body weight 2023-04-03 14:04:00 66.588 kg [facility] BMI 2023-04-03 14:04:00 29.65 kg/m2 [facility] Oxygen saturation in Arterial blood by Pulse oximetry 2023-04-03 14:04:00 98 /min [facility] Systolic blood pressure 2023-03-11 15:38:00 123 mm[Hg] [facility] Diastolic blood pressure 2023-03-11 15:38:00 58 mm[Hg] [facility] Heart rate 2023-03-11 15:38:00 58 /min [facility] height 2023-03-11 15:38:00 149.9 cm [facility] Body weight 2023-03-11 15:38:00 67.087 kg [facility] BMI 2023-03-11 15:38:00 29.87 kg/m2 [facility] Oxygen saturation in Arterial blood by Pulse oximetry 2023-03-11 15:38:00 97 /min [facility] Systolic blood pressure 2023-02-18 18:20:00 144 mm[Hg] [facility] Diastolic blood pressure 2023-02-18 18:20:00 78 mm[Hg] [facility] Heart rate 2023-02-18 18:20:00 67 /min [facility] Oxygen saturation in Arterial blood by Pulse oximetry 2023-02-18 18:20:00 99 /min [facility] Body temperature 2023-02-18 18:19:00 36.56 Jane [facility] Respiratory rate 2023-02-18 18:19:00 16 /min [facility] Body height 2023-02-18 18:19:00 144.8 cm [facility] Body weight 2023-02-18 18:19:00 67.268 kg [facility] BMI 2023-02-18 18:19:00 32.09 kg/m2 [facility] Systolic blood pressure 2023-02-13 13:06:00 144 mm[Hg] [facility] Diastolic blood pressure 2023-02-13 13:06:00 77 mm[Hg] [facility] Heart rate 2023-02-13 13:06:00 63 /min [facility] Body height 2023-02-13 13:06:00 144.8 cm [facility] Body weight 2023-02-13 13:06:00 68.493 kg [facility] BMI 2023-02-13 13:06:00 32.68 kg/m2 [facility] Sy[facility] blood pressure 2023-01-27 21:18:00 104 mm[Hg] [facility] Diastolic blood pressure 2023-01-27 21:18:00 63 mm[Hg] [facility] Heart rate 2023-01-27 21:18:00 67 /min [facility] Body temperature 2023-01-27 21:18:00 36.67 Jane [facility] Body height 2023-01-27 21:18:00 144.8 cm [facility] Body weight 2023-01-27 21:18:00 68.493 kg [facility] BMI 2023-01-27 21:18:00 32.68 kg/m2 [facility] Oxygen saturation in Arterial blood by Pulse oximetry 2023-01-27 21:18:00 98 /min [facility] Body height 2023-01-02 14:45:00 149.9 cm [facility] Body weight 2023-01-02 14:45:00 68.493 kg [facility] BMI 2023-01-02 14:45:00 30.50 kg/m2 [facility] Systolic blood pressure 2022-09-16 14:32:00 130 mm[Hg] [facility] Diastolic blood pressure 2022-09-16 14:32:00 78 mm[Hg] [facility] Heart rate 2022-09-16 14:32:00 59 /min [facility] Body height 2022-09-16 14:32:00 149.9 cm [facility] Body weight 2022-09-16 14:32:00 68.493 kg [facility] BMI 2022-09-16 14:32:00 30.50 kg/m2 [facility] Oxygen saturation in Arterial blood by Pulse oximetry 2022-09-16 14:32:00 98 /min [facility] Systolic blood pressure 2022-08-20 18:53:00 120 mm[Hg] [facility] Diastolic blood pressure 2022-08-20 18:53:00 75 mm[Hg] [facility] Heart rate 2022-08-20 18:53:00 71 /min [facility] Oxygen saturation in Arterial blood by Pulse oximetry 2022-08-20 18:53:00 96 /min [facility] Body temperature 2022-08-20 18:51:00 36.39 Jane [facility] Body height 2022-08-20 18:51:00 149.9 cm [facility] Body weight 2022-08-20 18:51:00 68.811 kg [facility] BMI 2022-08-20 18:51:00 30.64 kg/m2 [facility] Systolic blood pressure 2022-07-18 20:34:00 120 mm[Hg] [facility] Diastolic blood pressure 2022-07-18 20:34:00 67 mm[Hg] [facility] Heart rate 2022-07-18 20:34:00 64 /min [facility] Body temperature 2022-07-18 20:34:00 36.72 Jane [facility] Body height 2022-07-18 20:34:00 149.9 cm [facility] Body weight 2022-07-18 20:34:00 68.04 kg [facility] BMI 2022-07-18 20:34:00 30.30 kg/m2 [facility] Oxygen saturation in Arterial blood by Pulse oximetry 2022-07-18 20:34:00 98 /min [facility] Procedures Procedure Date / Time Performed Performing Clinician Source URINALYSIS 2024-06-09 20:29:[facility] 2024-06-09 19:21:00 [facility] AC PANEL 21 + LACTIC ACID 2024-06-09 19:14:00 Ismael Borrego [facility] LIPASE 2024-06-09 19:13:00 Ismael Borrego [facility] BETA HYDROXY-BUTYRATE 2024-06-09 19:13:00 Rusty Borrego ph [facility] TROPONIN I 2024-06-09 19:13:00 Ismael Borrego [facility] COMP. METABOLIC PANEL ([id number]) 2024-06-09 19:13:00 Salima [facility] CBC WITH DIFF 2024-06-09 19:13:00 [facility] N-TERMINAL PRO-BNP 2024-06-09 19:13:00 Salima [facility] COMP. METABOLIC PANEL ([id number]) 2024-06-08 21:37:00 Simone Bill [facility] GLYCOSYLATED HEMOGLOBIN (A1C) 2024-06-08 21:37:00 Simone Bill [facility] N-TERMINAL PRO-BNP 2024-06-08 21:37:00 Simone Bill [facility] POCT SARS-COV-2 ANTIGEN (BINAX NOW) 2024-05-27 15:35:00 Simone Bill [facility] POCT URINALYSIS 2024-05-27 14:53:00 Simone Bill [facility] BASIC METABOLIC PANEL (NA, K, CL, CO2, GLUCOSE, BUN, CREATININE, CA) 2023-12-24 15:23:00 Familia Nava [facility] DME/SUPPLY JUSTIFICATION 2023-12-15 06:01:00 Doc tor Unassigned, [place] [facility] BI SELF-REQUESTED SCREENING TOMOSYNTHESIS BILATERAL 2023-10-23 15:49:57 Simone Bill [facility] TRANSPLANT/EXT PROVIDER LAB/PATHOLOGY 2023-10-02 06:01:00 Doctor Unassigned, [place] [facility] EXTERNAL DD-CFDNA 2023-10-02 06:00:00 Chante Medel [facility] XR LUMBAR SPINE 2 VW 2023-09-21 15:10:09 Simone Bill [facility] XR HIPS 3 VW LEFT 2023-09-21 15:10:09 Simone Bill [facility] FLU VACC(),65+YR,0.5 ML,IM,ADJUVANTED,QUAD(FLU AD) 2023-09-16 21:13:10 Simone Bill [facility] PHOSPHORUS 2023-06-05 14:39:00 [facility] [facility] [place] MAGNESIUM 2023-06-05 14:39:00 Gianni, Vicki Adal Un [facility] BASIC METABOLIC PANEL (NA, K, CL, CO2, GLUCOSE, BUN, CREATININE, CA) 2023-06-05 14:39:00 Gianni, Vicki Adal [facility] CBC WITH DIFF 2023-06-05 14:39:00 Gianni [facility] [place] [facility]INALYSIS 2023-06-05 14:39:00 Gianni, Vicki Adal Un [facility] CREATININE, URINE RANDOM 2023-06-05 14:39:00 Gianni, Vicki Adal [facility] TOTAL PROTEIN, URINE RANDOM 2023-06-05 14:39:00 Gianni, Vicki Adal [facility] TRANSPLANT/EXT PROVIDER LAB/PATHOLOGY 2023-06-05 05:01:00 Doctor Unassigned, [place] [facility] EXTERNAL DD-CFDNA 2023-06-05 05:00:00 Jj Price [facility] XR CHEST 2 VW 2023-05-01 15:33:28 Kristen Liang [facility] INSURANCE CORRESPONDENCE 2023-03-30 05:01:00 Doc tor Unassigned, [place] [facility] CT THORAX WO CONTRAST 2023-02-09 16:17:36 Kristen Liang [facility] CONSENT/REFUSAL FOR DIAGNOSIS AND TREATMENT 2023-02-09 15:57:17 Doctor Unassigned, [place] [facility] ASSIGNMENT OF BENEFITS 2023-02-09 15:56:47 Docto r Unassigned, [place] [facility] FLU VACC(),65+YR,0.5 ML,IM,ADJUVANTED,QUAD(FLU AD) 2023-01-27 21:32:49 Simone Bill [facility] PATIENT FINANCIAL POLICY 2023-01-26 22:10:34 Doctor Unassigned, [place] [facility] URINALYSIS 2022-12-29 14:40:00 Gianni, Vicki Adal Un [facility] CREATININE, URINE RANDOM 2022-12-29 14:40:00 Gianni, Vicki Adal [facility] TOTAL PROTEIN, URINE RANDOM 2022-12-29 14:40:00 Gianni, Vicki Adal [facility] PHOSPHORUS 2022-12-29 14:32:00 Gianni, [facility]icki [facility] [place] [facility] 2022-12-29 14:32:00 Gianni, Vicki Adal Un [facility] BASIC METABOLIC PANEL (NA, K, CL, CO2, GLUCOSE, BUN, CREATININE, CA) 2022-12-29 14:32:00 Gianni, Vicki Adal [facility] CBC WITH DIFF 2022-12-29 14:32:00 Gianni, [facility] [place] ASSIGNMENT OF BENEFITS 2022-12-29 14:15:36 Docmanda r Unassigned, [place] [facility] PULMONARY FUNCTION TEST (RESULTS) 2022-10-14 18:53:02 Kristen Liang [facility] Encounters Start Date/Time End Date/Time Encounter Type Admission Type Attending Clinicians Care Facility Care Department Encounter ID Source 2024-09-09 16:00:00 2024-09-09 16:00:00 Outpatient FAMILIA ZELAYA [facility] [id number] [facility] 2024-09-05 15:30:00 2024-09-05 15:30:00 Outpatient SHEREE ELIZABETH DO [facility] [id number] [facility] 2024-06-24 16:40:00 2024-06-24 16:40:00 Outpatient WES MC PAUL [facility] [id number] [facility] 2024-06-13 00:00:00 2024-06-13 13:57:13 Patient Secure Msg SophiamelodyKrystle rush, [facility] 1.84.114 350.1.13.10 4.2.7.2.686 [id number] [facility] 2024-06-13 00:00:00 2024-06-13 12:44:48 Refill Qian rush, [facility] 1.84.114 350.1.13.10 4.2.7.2.686 [id number] [facility] 2024-06-13 00:00:00 2024-06-13 11:16:40 Patient Secure Msg Landy [facility] 1.840.114 350.1.13.10 4.2.7.2.686 [id number] [facility] 2024-06-11 00:00:00 2024-06-13 10:26:49 Patient Secure Msg Landy [facility] access hospitalE?[facility] 1.840.114 350.1.13.10 4.2.7.2.686 [id number] [facility] 2024-06-10 15:30:00 2024-06-10 15:30:00 Outpatient FAMILIA ZELAYA [facility] [id number] [facility] 2024-06-09 00:00:00 2024-06-10 08:27:36 RefPina Chairez [facility] NAL BUILDING 1.840.114 350.1.13.10 4.2.7.2.686 [id number] [facility] 2024-06-09 13:19:00 2024-06-09 16:59:00 Emergency X MITCHELL DE PAZ LUKE [facility] ERT [id number] [facility] 2024-06-09 13:19:00 2024-06-09 16:59:00 Emergency Mitchell De Paz [facility] 1.114 350.1.13.10 4.2.7.2.686 [id number] [facility] 2024-06-08 15:30:00 2024-06-08 16:54:51 Outpatient R SIMONE BILL [facility] [id number] [facility] 2024-06-08 15:30:00 2024-06-08 16:54:51 Office Visit Landy [facility] 1.84.114 350.1.13.10 4.2.7.2.686 [id number] [facility] 2024-06-08 16:30:00 2024-06-08 16:46:46 Laboratory Technologist Visit Lab, Gurwinder - Dereck Bill [facility] 1.84.114 350.1.13.10 4.2.7.2.686 [id number] [facility] 2024-06-07 00:00:00 2024-06-07 13:33:45 Aryan Warner [facility] M[facility]PEC [facility] 1.114 350.1.13.10 4.2.7.2.686 [id number] [facility] 2024-06-06 00:00:00 2024-06-06 10:28:34 Telephone Sheree Laughlin do [facility] MULTISPEC [facility] 1.114 350.1.13.10 4.2.7.2.686 [id number] [facility] 2024-06-06 09:00:00 2024-06-06 09:15:00 Laboratory Technologist Visit Lab, Gurwinder Bill Simone [facility]I?[facility] 1.84.114 350.1.13.10 4.2.7.2.686 [id number] [facility] 2024-06-06 09:00:00 2024-06-06 09:00:00 Outpatient SIMONE ALANIZ [facility] [id number] [facility] 2024-06-03 00:00:00 2024-06-03 15:37:12 Patient Secure Msg Bill Critical access hospitalE?[facility] 1.84.114 350.1.13.10 4.2.7.2.686 [id number] [facility] 2024-06-03 14:50:00 2024-06-03 14:50:00 Outpatient WES MC PAUL [facility] [id number] [facility] 2024-05-30 00:00:00 2024-05-31 13:04:11 Refgricelda Bill Critical access hospitalE?[facility] 1.84.114 350.1.13.10 4.2.7.2.686 [id number] [facility] 2024-05-30 00:00:00 2024-05-31 09:04:51 Kristen Gallo [facility] PROFESS[facility] NAL BUILDING 1.84.114 350.1.13.10 4.2.7.2.686 [id number] [facility] 2024-05-27 09:30:00 2024-05-27 10:43:44 Outpatient R SIMONE BILL [facility] [id number] [facility] 2024-05-27 09:30:00 2024-05-27 10:43:44 Office Visit ZohrehSimone aguila [facility] 1.2.840.114 350.1.13.10 4.2.7.2.686 [id number] [facility] 2024-05-24 00:00:00 2024-05-24 14:00:40 Refill Chante Medel [facility] 1..840.114 350.1.13.10 4.2.7.2.686 [id number] [facility] 2024-05-24 00:00:00 2024-05-24 07:30:44 Refill Zohrehmingo [facility] 1..840.114 350.1.13.10 4.2.7.2.686 [id number] [facility] 2024-05-23 16:00:00 2024-05-23 16:00:00 Outpatient R ZOHREHMingo SIMONE [facility] [id number] [facility] 2024-05-18 16:40:00 2024-05-18 16:40:00 Outpatient R JESSY OMALLEY [facility] [id number] [facility] 2024 00:00:00 2024 08:31:26 Pre Visit Outreach Valeri Kendrick [facility] 1.2.840.114 350.1.13.10 4.2.7.2.686 [id number] [facility] 2024-05-01 00:00:00 2024-05-02 15:52:35 Refill Landy [facility] 1.2.840.114 350.1.13.10 4.2.7.2.686 [id number] [facility] 2024-04-29 15:25:00 2024-04-29 23:59:00 Hospital Encounter Familia Nava [facility] 1.2840.114 350.1.13.10 4.2.7.2.686 [id number] [facility] 2024-04-29 15:05:18 2024-04-29 15:24:00 Outpatient R FAMILIA NAVA [facility] [id number] [facility] 2024-04-29 15:05:18 2024-04-29 15:24:00 Hospital Encounter Brandy [facility] 1.840.114 350.1.13.10 4.2.7.2.686 [id number] [facility] 2024-04-07 00:00:00 2024-04-08 10:29:57 Simone Hutchins [facility] 1.2.840.114 350.1.13.10 4.2.7.2.686 [id number] [facility] 2024-03-30 16:40:00 2024-03-30 16:40:00 Outpatient R JESSY OMALLEY [facility] [id number] [facility] 2024-03-25 00:00:00 2024-03-25 00:00:00 [facility] 1.2.840.114 350.1.13.10 4.2.7.2.686 [id number] [facility] 2024-03-24 00:00:00 2024-03-24 00:00:00 [facility]one [facility] 1.840.114 350.1.13.10 4.2.7.2.686 [id number] [facility] 2024-03-24 00:00:00 2024-03-24 00:00:00 Refill Chante Medel [facility] MULTISPEC [facility]ALTY C[facility] 1.840.114 350.1.13.10 4.2.7.2.686 [id number] [facility] 2024-03-19 00:00:00 2024-03-19 00:00:00 Refill Jeane BillCritical access hospitalE?[facility] 1.2840.114 350.1.13.10 4.2.7.2.686 [id number] [facility] 2024-03-16 00:00:00 2024-03-16 00:00:00 Refill Sheree Laughlin do K N [facility] 1.0.114 350.1.13.10 4.2.7.2.686 [id number] [facility] 2024-03-14 00:00:00 2024-03-14 00:00:00 Refill [facility]ohrehSimone aguila [facility] 1.0.114 350.1.13.10 4.2.7.2.686 [id number] [facility] 2024-03-11 00:00:00 2024-03-11 00:00:00 Refill Landy Critical access hospitalE?[facility] 1.840.114 350.1.13.10 4.2.7.2.686 [id number] [facility] 2024-03-09 00:00:00 2024-03-09 00:00:00 Refill Pina Doty [facility] NAL BUILDING 1.114 350.1.13.10 4.2.7.2.686 [id number] [facility] 2024-03-09 00:00:00 2024-03-09 00:00:00 [facility] 1.114 350.1.13.10 4.2.7.2.686 [id number] [id number] [facility] 2024-03-07 15:40:00 2024-03-07 15:40:00 Office Visit Sheree Laughlin do [facility] MULTISPEC [facility]TY [facility] 1.114 350.1.13.10 4.2.7.2.686 [id number] [facility] 2024-03-07 15:40:00 2024-03-07 15:23:56 Outpatient R SHEREE LAUGHLIN DO [facility] [id number] [facility] 2024-03-05 00:00:00 2024-03-05 00:00:00 [facility] 1.114 350.1.13.10 4.2.7.2.686 [id number] [facility] 2024-03-04 00:00:00 2024-03-04 00:00:00 Refill Sheree Laughlin do [facility] MULTISPEC [facility]TY [facility] 1.114 350.1.13.10 4.2.7.2.686 [id number] [facility] 2024-02-23 00:00:00 2024-02-23 00:00:00 Telephone Simone Bill [facility] 1..840.114 350.1.13.10 4.2.7.2.686 [id number] [id number] [facility] 2024-02-23 00:00:00 2024-02-23 00:00:00 Telephone Simone Bill [facility] 1.2.840.114 350.1.13.10 4.2.7.2.686 [id number] [facility] 2024-02-22 16:30:00 2024-02-22 16:44:33 Laboratory Technologist Visit Lab, Gurwinder BrunerSimone aguila [facility] 1..840.114 350.1.13.10 4.2.7.2.686 [id number] [facility] 2024-02-22 16:00:00 2024-02-22 16:26:13 Outpatient R SIMONE BILL [facility] [id number] [facility] 2024-02-22 16:00:00 2024-02-22 16:26:13 [facility] 1..840.114 350.1.13.10 4.2.7.2.686 [id number] [facility] 2024-02-15 15:40:00 2024-02-15 15:40:00 Outpatient R SHEREE LAUGHLIN DO [facility] [id number] [facility] 2024-02-12 00:00:00 2024-02-12 00:00:00 Outpatient R KRISTEN LIANG SHIWAN [facility] [id number] [facility] 2024-02-10 08:45:00 2024-02-10 09:00:00 Laboratory Technologist Visit Lab, Gurwinder Brunermingo [facility] R[facility] 1.2.840.114 350.1.13.10 4.2.7.2.686 [id number] [facility] 2024-02-10 08:45:00 2024-02-10 08:45:00 Outpatient R SIMONE BILL [facility] [id number] [facility] 2024-01-18 15:30:00 2024-01-18 15:30:00 Outpatient R SIMONE BILL [facility] [id number] [facility] 2023-12-28 15:40:00 2023-12-28 15:40:00 Outpatient R JESSY OMALLEY [facility] [id number] [facility] 2023-12-24 11:00:00 2023-12-24 11:15:00 Nurse Visit Nurse, Adc Pob Amb Infusion Familia Nava [facility] 1.2.840.114 350.1.13.10 4.2.7.2.686 [id number] [facility] 2023-12-24 11:00:00 2023-12-24 11:00:00 Outpatient R FAMILIA NAVA [facility] [id number] [facility] 2023-12-24 09:30:00 2023-12-24 09:30:00 Laboratory Technologist Visit 2, Adc Brenda Smith [facility] 1.2.840.114 350.1.13.10 4.2.7.2.686 [id number] [facility] 2023-12-21 15:30:00 2023-12-21 15:30:00 Outpatient R SIMONE BILL [facility] [id number] [facility] 2023-12-21 00:00:00 2023-12-21 00:00:00 Refill Simone Bill [facility] 1.84114 350.1.13.10 4.2.7.2.686 [id number] [facility] 2023-12-21 00:00:00 2023-12-21 00:00:00 Refgricelda BillJeaneie [facility] 1.84114 350.1.13.10 4.2.7.2.686 [id number] [facility] 2023-12-18 10:00:00 2023-12-18 10:00:00 Outpatient R [facility] [id number] [facility] 2023-12-15 00:00:00 2023-12-15 00:00:00 Telephone Kristen Liang [facility] NAL BUILDING 1.84.114 350.1.13.10 4.2.7.2.686 [id number] [facility] 2023-12-15 00:00:00 2023-12-15 00:00:00 Orders Only Doctor Unassigned, [place] [facility] 1.114 350.1.13.10 4.2.7.2.686 [id number] [facility] 2023-12-10 10:00:00 2023-12-10 11:00:53 Outpatient R KRISTEN LIANG SHIWAN [facility] [id number] [facility] 2023-12-10 10:00:00 2023-12-10 11:00:53 Office Visit Kristen Liang [facility] BU[facility] 1.84114 350.1.13.10 4.2.7.2.686 [id number] [facility] 2023-12-08 00:00:00 2023-12-08 00:00:00 Telephone Familia Nava [facility] 1.84114 350.1.13.10 4.2.7.2.686 [id number] [facility] 2023-12-04 10:00:00 2023-12-04 10:00:00 Outpatient R [facility] [id number] [facility] 2023-12-03 00:00:00 2023-12-03 00:00:00 Refill Ha Schmitz [facility] 1.114 350.1.13.10 4.2.7.2.686 [id number] [facility] 2023-12-03 00:00:00 2023-12-03 00:00:00 Refill Aryan Price [facility] MULTISPEC [facility]TY C[facility] 1.114 350.1.13.10 4.2.7.2.686 [id number] [facility] 2023-11-27 16:00:00 2023-11-27 16:00:00 Outpatient R SIMONE BILL [facility] [id number] [facility] 2023-11-27 00:00:00 2023-11-27 00:00:00 Refill Landy [facility] RAVI?[facility] 1.84114 350.1.13.10 4.2.7.2.686 [id number] [facility] 2023-11-27 00:00:00 2023-11-27 00:00:00 Refill Landy Simone [facility] 1.114 350.1.13.10 4.2.7.2.686 [id number] [facility] 2023-11-22 00:00:00 2023-11-22 00:00:00 Refill Sheree Laughlin do [facility] MULTISPEC [facility]TY C[facility] 1.84.114 350.1.13.10 4.2.7.2.686 [id number] [facility] 2023-11-20 08:45:00 2023-11-20 11:05:17 Outpatient R UNKNOWN, ATTENDING [facility] [id number] [facility] 2023-11-20 08:45:00 2023-11-20 09:00:00 Laboratory Technologist Visit Lab, Ang - Dereck Unknown, Attending [facility] 1.840.114 350.1.13.10 4.2.7.2.686 [id number] [facility] 2023-11-19 09:00:00 2023-11-19 09:00:00 Outpatient R [facility] [id number] [facility] 2023-11-19 00:00:00 2023-11-19 00:00:00 Telephone Vicki Mcnally [facility] MULTISPEC [facility]TY C[facility] 1.840.114 350.1.13.10 4.2.7.2.686 [id number] [facility] 2023-10-27 13:30:00 2023-10-27 13:30:00 Outpatient R SIMONE BILL [facility] [id number] [facility] 2023-10-23 09:00:41 2023-10-23 23:59:00 Outpatient R ISIDRO BURRELL [facility] [id number] [facility] 2023-10-23 09:00:41 2023-10-23 23:59:00 Hospital Encounter Isidro Burrell [facility] 1.840.114 350.1.13.10 4.2.7.2.686 [id number] [facility] 2023-10-23 00:00:00 2023-10-23 00:00:00 Patient Secure Msg Doctor Unassigned, [place] [facility] 1..840.114 350.1.13.10 4.2.7.2.686 [id number] [facility] 2023-10-14 15:30:00 2023-10-14 15:30:00 Outpatient R PINA DOTY [facility] [id number] [facility] 2023-10-08 16:00:00 2023-10-08 16:33:37 Outpatient R ANEL GOLDEN [facility] [id number] [facility] 2023-10-08 16:00:00 2023-10-08 16:33:37 Office Visit Anel Golden S [facility] 1..840.114 350.1.13.10 4.2.7.2.686 [id number] [facility] 2023-10-06 00:00:00 2023-10-06 00:00:00 Abstract Chante Medel [facility] 1.840.114 350.1.13.10 4.2.7.2.686 [id number] [facility] 2023-10-05 00:00:00 2023-10-05 00:00:00 Outpatient ISIDRO QUEEN [facility] [id number] [facility] 2023-10-02 00:00:00 2023-10-02 00:00:00 Orders Only Doctor Unassigned, [place] [facility] 1.840.114 350.1.13.10 4.2.7.2.686 [id number] [facility] 2023-10-01 16:15:00 2023-10-01 16:15:00 Outpatient ANEL CHAO [facility] [id number] [facility] 2023-09-23 00:00:00 2023-09-23 00:00:00 Patient Secure Msg Simone Bill [facility] 1.84114 350.1.13.10 4.2.7.2.686 [id number] [facility] 2023-09-22 00:00:00 2023-09-22 00:00:00 Refill Qian rush, Sheree Lira [facility]PEC [facility] 1.114 350.1.13.10 4.2.7.2.686 [id number] [facility] 2023-09-21 09:15:41 2023-09-21 23:59:00 Outpatient R SIMONE BILL [facility] [id number] [facility] 2023-09-21 09:15:00 2023-09-21 23:59:00 Hospital Encounter Simone Bill [facility] 1.114 350.1.13.10 4.2.7.2.686 [id number] [facility] 2023-09-21 00:00:00 2023-09-21 00:00:00 Patient Secure Msg Simone Bill [facility] 1.114 350.1.13.10 4.2.7.2.686 [id number] [facility] 2023-09-18 00:00:00 2023-09-18 00:00:00 Patient Secure Msg Simone Bill [facility] 1.114 350.1.13.10 4.2.7.2.686 [id number] [facility] 2023-09-18 00:00:00 2023-09-18 00:00:00 Telephone Simone Bill [facility] 1.2.84.114 350.1.13.10 4.2.7.2.686 [id number] [facility] 2023-09-18 00:00:00 2023-09-18 00:00:00 [facility] 1.84114 350.1.13.10 4.2.7.2.686 [id number] [facility] 2023-09-17 11:30:00 2023-09-17 11:30:00 Outpatient R KRISTEN LIANG SHIWAN [facility] [id number] [facility] 2023-09-17 00:00:00 2023-09-17 00:00:00 Refill Landy [facility] 1.84.114 350.1.13.10 4.2.7.2.686 [id number] [facility] 2023-09-17 00:00:00 2023-09-17 00:00:00 Refill Landy Sim[facility] 1.84.114 350.1.13.10 4.2.7.2.686 [id number] [facility] 2023-09-16 16:30:00 2023-09-16 16:57:26 Outpatient R SIMONE BILL [facility] [id number] [facility] 2023-09-16 16:30:00 2023-09-16 16:57:26 Laboratory Technologist Visit Lab, Gurwinder Bill [facility] RAVI?[facility] 1.84.114 350.1.13.10 4.2.7.2.686 [id number] [facility] 2023-09-16 15:30:00 2023-09-16 16:23:56 Office Visit Simone Bill [facility] 1.84.114 350.1.13.10 4.2.7.2.686 [id number] [facility] 2023-09-13 00:00:00 2023-09-13 00:00:00 Refill Simone Bill [facility] 1.84.114 350.1.13.10 4.2.7.2.686 [id number] [facility] 2023-09-13 00:00:00 2023-09-13 00:00:00 Refill Simone [facility] 1.84.114 350.1.13.10 4.2.7.2.686 [id number] [facility] 2023-09-10 15:30:00 2023-09-10 15:30:00 Outpatient R PINA DOTY [facility] [id number] [facility] 2023-09-08 15:30:00 2023-09-08 15:30:00 Outpatient R SIMONE BILL [facility] [id number] [facility] 2023-09-07 09:30:00 2023-09-07 09:30:00 Outpatient R KRISTEN LIANG SHIWAN [facility] [id number] [facility] 2023-08-20 16:00:00 2023-08-20 16:20:00 Office Visit Chante Medel Syed Asif [facility] 1.84.114 350.1.13.10 4.2.7.2.686 [id number] [facility] 2023-08-20 16:00:00 2023-08-20 16:00:00 Outpatient VICKI VELARDE [facility] [id number] [facility] 2023-08-19 14:00:00 2023-08-19 14:00:00 Outpatient R ARYAN PRICE [facility] [id number] [facility] 2023-08-18 08:30:00 2023-08-18 09:24:44 Laboratory Technologist Visit Lab, Gurwinder Bill [facility] RAVI?[facility] 1.84.114 350.1.13.10 4.2.7.2.686 [id number] [facility] 2023-08-18 08:30:00 2023-08-18 08:30:00 Outpatient R LANDY SIMONE [facility] [id number] [facility] 2023-08-14 00:00:00 2023-08-14 00:00:00 [facility]ill [facility] 1.84.114 350.1.13.10 4.2.7.2.686 [id number] [facility] 2023-08-06 00:00:00 2023-08-06 00:00:00 Refill Landy [facility] RAVI?[facility] 1..114 350.1.13.10 4.2.7.2.686 [id number] [id number] [facility] 2023-08-04 00:00:00 2023-08-04 00:00:00 Patient Secure Msdee Zohrehmingo Simone [facility] 1.84114 350.1.13.10 4.2.7.2.686 [id number] [facility] 2023-08-01 00:00:00 2023-08-01 00:00:00 Refill Sheree Lauglhin do [facility] 1.114 350.1.13.10 4.2.7.2.686 [id number] [facility] 2023-07-30 15:30:00 2023-07-30 15:30:00 Outpatient PINA DE JESUS [facility] [id number] [facility] 2023-07-03 00:00:00 2023-07-03 00:00:00 Patient Secure Msg Bill [facility] RAVI?[facility] 1..114 350.1.13.10 4.2.7.2.686 [id number] 044 [id number] [facility] 2023-07-01 00:00:00 2023-07-01 00:00:00 Refgricelda Landy [facility] RAVI?[facility] 1.114 350.1.13.10 4.2.7.2.686 [id number] [id number] [facility] 2023-06-27 00:00:00 2023-06-27 00:00:00 [facility] 1..114 350.1.13.10 4.2.7.2.686 [id number] [facility] 2023-06-22 00:00:00 2023-06-22 00:00:00 Refill Landy [facility] RAVI?[facility] 1..114 350.1.13.10 4.2.7.2.686 [id number] [id number] [facility] 2023-06-22 00:00:00 2023-06-22 00:00:00 Abstract Aryan Price [facility] MULTISPEC [facility] 1.114 350.1.13.10 4.2.7.2.686 [id number] [facility] 2023-06-18 10:00:00 2023-06-18 10:15:00 Nurse Visit 1, Adc Infusion Nurse Simone Bill [facility] 1.840.114 350.1.13.10 4.2.7.2.686 [id number] [facility] 2023-06-18 10:00:00 2023-06-18 10:00:00 Outpatient R SIMONE BILL [facility] [id number] [facility] 2023-06-12 10:00:00 2023-06-12 10:00:00 Outpatient R [facility] [id number] [facility] 2023-06-11 14:00:00 2023-06-11 16:07:32 Outpatient R LUL GARCIA [facility] [id number] [facility] 2023-06-11 14:00:00 2023-06-11 16:07:32 Office Visit Lul Garcia [facility] 1.840.114 350.1.13.10 4.2.7.2.686 [id number] [facility] 2023-06-10 11:15:00 2023-06-10 11:26:01 Outpatient R SHEREE LAUGHLIN DO [facility] [id number] [facility] 2023-06-10 11:15:00 2023-06-10 11:26:01 Laboratory Technologist Visit Lab, Sheree Weiss do [facility] 1..840.114 350.1.13.10 4.2.7.2.686 [id number] [facility] 2023-06-10 10:00:00 2023-06-10 10:00:00 Outpatient R PINA DOTY [facility] [id number] [facility] 2023-06-05 15:30:00 2023-06-05 16:19:59 Outpatient R FAMILIA NAVA [facility] [id number] [facility] 2023-06-05 15:30:00 2023-06-05 16:19:59 Office Visit Familia Nava Nano [facility] 1.284114 350.1.13.10 4.2.7.2.686 [id number] [facility] 2023-06-05 10:15:00 2023-06-05 12:30:29 Laboratory Technologist Visit Lab, Chante Gilbert [facility] 1.114 350.1.13.10 4.2.7.2.686 [id number] [facility] 2023-06-05 00:00:00 2023-06-05 00:00:00 Orders Only Doctor Unassigned, Estancia [facility] 1.114 350.1.13.10 4.2.7.2.686 [id number] [facility] 2023-06-04 00:00:00 2023-06-04 00:00:00 Refill Simone Bill [facility] 1.84114 350.1.13.10 4.2.7.2.686 [id number] [id number] [facility] 2023-06-04 00:00:00 2023-06-04 00:00:00 Refill Pina Doty [facility] 1.84.114 350.1.13.10 4.2.7.2.686 [id number] 059 [id number] [facility] 2023-06-04 00:00:00 2023-06-04 00:00:00 Refill [facility] 1.114 350.1.13.10 4.2.7.2.686 [id number] [facility] 2023-06-04 00:00:00 2023-06-04 00:00:00 Refill Sheree Laughlin do [facility] 1.114 350.1.13.10 4.2.7.2.686 [id number] 044 [id number] [facility] 2023-06-04 00:00:00 2023-06-04 00:00:00 Refill Vicki Mcnally Adal [facility] 1.114 350.1.13.10 4.2.7.2.686 [id number] [facility] 2023-06-04 00:00:00 2023-06-04 00:00:00 Refill Aryan Price [facility] OFF[facility] BU[facility] 1.114 350.1.13.10 4.2.7.2.686 [id number] [id number] [facility] 2023-06-02 15:30:00 2023-06-02 15:47:07 Outpatient R SIMONE BILL [facility] [id number] [facility] 2023-06-02 15:30:00 2023-06-02 15:47:07 Office Visit Simone Bill [facility]ANKM[facility] 1.114 350.1.13.10 4.2.7.2.686 [id number] [id number] [facility] 2023-05-29 00:00:00 2023-05-29 00:00:00 Telephone Chante Medel [facility] 1.114 350.1.13.10 4.2.7.2.686 [id number] [facility] 2023-05-29 00:00:00 2023-05-29 00:00:00 Case Management [facility] 1.2.840.114 350.1.13.10 4.2.7.2.686 [id number] [id number] [facility] 2023-05-29 00:00:00 2023-05-29 00:00:00 Telephone Amaris [facility] BUILDING 1.2.840.114 350.1.13.10 4.2.7.2.686 [id number] [facility] 2023-05-25 10:15:00 2023-05-25 10:30:00 Laboratory Technologist Visit Lab, Simone Ryan [facility] 1.2.840.114 350.1.13.10 4.2.7.2.686 [id number] [facility] 2023-05-25 10:15:00 2023-05-25 10:15:00 Outpatient SIMONE ALANIZ [facility] [id number] [facility] 2023-05-22 15:30:00 2023-05-22 15:30:00 Outpatient SIMONE ALANIZ [facility] [id number] [facility] 2023-05-21 09:00:00 2023-05-21 09:00:00 Outpatient Johan [facility] [id number] [facility] 2023-05-08 15:30:00 2023-05-08 15:30:00 Outpatient SIMONE ALANIZ [facility] [id number] [facility] 2023-05-07 00:00:00 2023-05-07 00:00:[address] [facility] 1.840.114 350.1.13.10 4.2.7.2.686 [id number] [facility] 2023-05-07 00:00:00 2023-05-07 00:00:00 Patient Secure Msg Doctor Unassigned, Estancia [facility] 1.2840.114 350.1.13.10 4.2.7.2.686 [id number] [facility] 2023-05-04 09:30:00 2023-05-04 09:30:00 Outpatient SIMONE ALANIZ [facility] [id number] [facility] 2023-05-01 10:18:45 2023-05-01 23:59:00 Outpatient [facility] [id number] [facility] 2023-05-01 10:18:45 2023-05-01 23:59:00 Hospital Encounter Kristen Li[facility] 1.840.114 350.1.13.10 4.2.7.2.686 [id number] [facility] 2023-05-01 09:00:00 2023-05-01 09:55:05 Office Visit Kristen Liang [facility] 1..840.114 350.1.13.10 4.2.7.2.686 [id number] [facility] 2023-05-01 00:00:00 2023-05-01 00:00:00 Telephone Pina Doty [facility] 1.2.840.114 350.1.13.10 4.2.7.2.686 [id number] [facility] 2023-04-30 00:00:00 2023-04-30 00:00:00 Telephone Familia Nava [facility] 1.114 350.1.13.10 4.2.7.2.686 [id number] [facility] 2023-04-24 00:00:00 2023-04-24 00:00:00 Refill Sheree Laughlin do [facility] MED[facility] OFF[facility] BUILDING 1.114 350.1.13.10 4.2.7.2.686 [id number] [id number] [facility] 2023-04-23 00:00:00 2023-04-23 00:00:00 Refill Aryan [facility] 1.114 350.1.13.10 4.2.7.2.686 [id number] [facility] 2023-04-16 11:30:00 2023-04-16 11:30:00 Outpatient KRISTEN MCNULTY SHIWAN [facility] [id number] [facility] 2023-04-09 00:00:00 2023-04-09 00:00:00 Refill Simone Bill [facility] OFF[facility] BUILD[facility] 1.114 350.1.13.10 4.2.7.2.686 [id number] [id number] [facility] 2023-04-09 00:00:00 2023-04-09 00:00:00 Patient Secure Ynes Rachel [facility] OFF[facility] BUILD[facility] 1.114 350.1.13.10 4.2.7.2.686 [id number] [id number] [facility] 2023-04-09 00:00:00 2023-04-09 00:00:00 Refill Simone [facility] 1..840.114 350.1.13.10 4.2.7.2.686 [id number] [facility] 2023-04-03 10:08:42 2023-04-03 23:59:00 Outpatient R SIMONE BILL [facility] [id number] [facility] 2023-04-03 09:30:00 2023-04-03 09:37:17 Office Visit [facility] 1.840.114 350.1.13.10 4.2.7.2.686 [id number] [facility] 2023-04-01 14:00:00 2023-04-01 14:00:00 Outpatient R SIMONE BILL [facility] [id number] [facility] 2023-03-30 00:00:00 2023-03-30 00:00:00 Orders Only Doctor Unassigned, Estancia [facility] 1.840.114 350.1.13.10 4.2.7.2.686 [id number] [facility] 2023-03-26 10:00:00 2023-03-26 10:00:00 Outpatient R KRISTEN LIANG SHIWAN [facility] [id number] [facility] 2023-03-24 00:00:00 2023-03-24 00:00:00 Outpatient R PINA DOTY [facility] [id number] [facility] 2023-03-13 00:00:00 2023-03-13 00:00:00 Refill Chante Medel [facility]ALTY CENTER [facility] 1.840.114 350.1.13.10 4.2.7.2.686 [id number] [facility] 2023-03-12 00:00:00 2023-03-12 00:00:00 Yee Denise [facility] 1.84.114 350.1.13.10 4.2.7.2.686 [id number] [facility] 2023-03-11 10:30:00 2023-03-11 11:04:34 Outpatient R PINA DOTY [facility] [id number] [facility] 2023-03-11 10:30:00 2023-03-11 11:04:34 Office Visit [facility] 1.840.114 350.1.13.10 4.2.7.2.686 [id number] [facility] 2023-03-09 15:30:00 2023-03-09 15:30:00 Outpatient R PINA DOTY [facility] [id number] [facility] 2023-03-02 00:00:00 2023-03-02 00:00:00 Telephone Kristen Liang [facility] 1.840.114 350.1.13.10 4.2.7.2.686 [id number] [facility] 2023-02-18 13:20:00 2023-02-18 14:36:23 Outpatient R CHANTE MEDEL [facility] [id number] [facility] 2023-02-18 13:20:00 2023-02-18 14:36:23 Office Visit Chante Medel Muhammad [facility] 1.840.114 350.1.13.10 4.2.7.2.686 [id number] [facility] 2023-02-16 08:30:00 2023-02-16 08:45:00 Laboratory Technologist Visit Lab, Aryan Beckman [facility] OFF[facility] BUILDING 1.84.114 350.1.13.10 4.2.7.2.686 [id number] [facility] 2023-02-16 08:30:00 2023-02-16 08:30:00 Outpatient R RAHUL PRICEMAD [facility] [id number] [facility] 2023-02-16 00:00:00 2023-02-16 00:00:00 Telephone Jose Pricehammad [facility] MULTISPEC [facility]ALTY C[facility] 1.114 350.1.13.10 4.2.7.2.686 [id number] [facility] 2023-02-13 09:00:00 2023-02-13 09:15:00 Office Visit Anel Golden [facility] MED[facility] OFF[facility] BUILDING 1.84114 350.1.13.10 4.2.7.2.686 [id number] [facility] 2023-02-13 09:00:00 2023-02-13 09:00:00 Outpatient R ANEL GOLDEN [facility] [id number] [facility] 2023-02-13 08:00:00 2023-02-13 08:07:08 Laboratory Technologist Visit Lab, Simone Ryan [facility] MED[facility] OFF[facility] BUILDING 1.84.114 350.1.13.10 4.2.7.2.686 [id number] [facility] 2023-02-13 00:00:00 2023-02-13 00:00:00 Patient Secure Msg Jose Pricehammad Mingo [facility] MULTISPEC [facility] 1.114 350.1.13.10 4.2.7.2.686 [id number] [facility] 2023-02-12 00:00:00 2023-02-12 00:00:00 Patient Secure Msg Danuta Liangksyash [facility] MEDICAL OFFICE BUILDING 1.2.840.114 350.1.13.10 4.2.7.2.686 [id number] [facility] 2023-02-09 11:00:07 2023-02-09 23:59:00 Outpatient R KRISTEN LIANG [facility] [id number] [facility] 2023-02-09 11:00:07 2023-02-09 23:59:00 Hospital Encounter Kristen Liang [facility] 1.2840.114 350.1.13.10 4.2.7.2.686 [id number] [facility] 2023-02-08 00:00:00 2023-02-08 00:00:00 Refill Lul Garcia [facility] 1.2840.114 350.1.13.10 4.2.7.2.686 [id number] [facility] 2023-02-03 00:00:00 2023-02-03 00:00:00 Pre Visit Outreach Amarilis Gallagher [facility] 1.2.840.114 350.1.13.10 4.2.7.2.686 [id number] [facility] 2023-01-28 00:00:00 2023-01-28 00:00:00 Refill Sheree Laughlin do [facility] MULTISPEC [facility] 1.2840.114 350.1.13.10 4.2.7.2.686 [id number] [facility] 2023-01-27 16:08:30 2023-01-27 23:59:00 Outpatient SIMONE ALANIZ [facility] [id number] [facility] 2023-01-27 16:00:00 2023-01-27 16:32:55 Laboratory Technologist Visit Lab, Ang - Db Jeane Bill[facility]ly [facility] 1.114 350.1.13.10 4.2.7.2.686 [id number] [facility] 2023-01-27 15:30:00 2023-01-27 16:06:39 Office Visit ZohrehSimone aguila [facility] BUILDING 1.114 350.1.13.10 4.2.7.2.686 [id number] [facility] 2023-01-26 16:15:00 2023-01-26 17:19:21 Outpatient R LICHA LEVI [facility] [id number] [facility] 2023-01-26 16:15:00 2023-01-26 17:19:21 Office Visit [facility] 1.114 350.1.13.10 4.2.7.2.686 [id number] [facility] 2023-01-26 00:00:00 2023-01-26 00:00:00 Orders Only Doctor Unassigned, Estancia [facility] 1.114 350.1.13.10 4.2.7.2.686 [id number] [facility] 2023-01-23 00:00:00 2023-01-23 00:00:00 Patient Secure Msg Landy [facility] BUILDING 1.114 350.1.13.10 4.2.7.2.686 [id number] [facility] 2023-01-19 15:30:00 2023-01-19 15:30:00 Outpatient R SIMONE BILL [facility] [id number] [facility] 2023-01-08 00:00:00 2023-01-08 00:00:00 Philip Landy Simone [facility] 1.2.840.114 350.1.13.10 4.2.7.2.686 [id number] [facility] 2023-01-02 09:00:00 2023-01-02 09:30:00 Office Visit Leia Anel S [facility] 1..840.114 350.1.13.10 4.2.7.2.686 [id number] [facility] 2023-01-02 09:00:00 2023-01-02 09:00:00 Outpatient ANEL CHAO [facility] [id number] [facility] 2022-12-29 08:00:00 2022-12-29 09:00:46 Laboratory Technologist Visit Lab, Vicki Lazo [facility] 1..840.114 350.1.13.10 4.2.7.2.686 [id number] [facility] 2022-12-29 08:00:00 2022-12-29 08:00:00 Outpatient VICKI VELARDE [facility] [id number] [facility] 2022-12-29 00:00:00 2022-12-29 00:00:00 Orders Only Doctor Unassigned, [place] [facility] 1..840.114 350.1.13.10 4.2.7.2.686 [id number] [facility] 2022-11-21 09:00:00 2022-11-21 09:00:00 Outpatient Johan [facility] [id number] [facility] 2022-11-12 00:00:00 2022-11-12 00:00:00 Outpatient ART HN [facility] [id number] [facility] 2022-11-10 00:00:00 2022-11-10 00:00:00 Patient Secure Simone [facility] BUILD[facility] 1.2.840.114 350.1.13.10 4.2.7.2.686 [id number] [facility] 2022-11-08 00:00:00 2022-11-08 00:00:00 Refill Dodie Hoang [facility] BUILD[facility] 1.2.840.114 350.1.13.10 4.2.7.2.686 [id number] [facility] 2022-11-07 00:00:00 2022-11-07 00:00:00 Refill Dodie Hoang [facility] BUILD[facility] 1..840.114 350.1.13.10 4.2.7.2.686 [id number] [facility] 2022-11-07 00:00:00 2022-11-07 00:00:00 Refill Simone Bill [facility] BUILD[facility] 1..840.114 350.1.13.10 4.2.7.2.686 [id number] 044 [id number] [facility] 2022-10-20 00:00:00 2022-10-20 00:00:00 Telephone Kristen Liang [facility] BUILDING 1..840.114 350.1.13.10 4.2.7.2.686 [id number] [facility] 2022-10-15 00:00:00 2022-10-15 00:00:00 Case Management Kristen Liang [facility] BUILDING 1.0.114 350.1.13.10 4.2.7.2.686 [id number] [facility] 2022-10-14 13:00:00 2022-10-14 14:00:00 Laboratory Technologist Visit Testing, [facility] 1.0.114 350.1.13.10 4.2.7.2.686 [id number] [facility] 2022-10-14 13:00:00 2022-10-14 13:00:00 [facility] [id number] [facility] 2022-10-14 00:00:00 2022-10-14 00:00:00 Orders Only [facility] 1..114 350.1.13.10 4.2.7.2.686 [id number] [facility] 2022-09-19 08:45:00 2022-09-19 08:45:00 Outpatient R LICHA LEVI [facility] [id number] [facility] 2022-09-16 09:30:00 2022-09-16 10:00:28 Out[facility] [id number] [facility] 2022-09-16 09:30:00 2022-09-16 10:00:28 [facility] 1.0.114 350.1.13.10 4.2.7.2.686 [id number] [facility] 2022-09-04 00:00:00 2022-09-04 00:00:00 RefAryan Abrams [facility] 1..114 350.1.13.10 4.2.7.2.686 [id number] [facility] 2022-08-26 00:00:00 2022-08-26 00:00:00 Patient Secure Simone Kim [facility] 1..840.114 350.1.13.10 4.2.7.2.686 [id number] [facility] 2022-08-21 14:40:00 2022-08-21 14:40:00 Outpatient R RAHUL PRICEMAD [facility] [id number] [facility] 2022-08-21 14:40:00 2022-08-21 14:40:00 Outpatient R RAHUL PRICEMAD [facility] [id number] [facility] 2022-08-20 13:20:00 2022-08-20 14:16:37 Outpatient R RAHUL PRICEMAD [facility] [id number] [facility] 2022-08-20 13:20:00 2022-08-20 14:16:37 Office Visit Vicki Mcnally Muhammad A [facility] 1..840.114 350.1.13.10 4.2.7.2.686 [id number] [facility] 2022-08-20 13:20:00 2022-08-20 13:20:00 Outpatient R ARYAN PRICE [facility] [id number] [facility] 2022-08-18 09:00:00 2022-08-18 09:15:00 Laboratory Technologist Visit Lab, Gurwinder Laughlin do, Sheree Lira [facility] 1..840.114 350.1.13.10 4.2.7.2.686 [id number] [facility] 2022-08-18 09:00:00 2022-08-18 09:00:00 Outpatient R GAMILLA-CRU DO, SHEREE [facility] [id number] [facility] 2022-08-18 09:00:00 2022-08-18 09:00:00 Outpatient R GAMILLA-CRU DO, SHEREE [facility] [id number] [facility] 2022-08-04 00:00:00 2022-08-04 00:00:00 Refill Dodie Hoang [facility] 1.840.114 350.1.13.10 4.2.7.2.686 [id number] [facility] 2022-07-31 00:00:00 2022-07-31 00:00:00 Refill Sheree Laughlin do [facility] 1.840.114 350.1.13.10 4.2.7.2.686 [id number] [facility] 2022-07-22 09:00:00 2022-07-22 09:16:47 Laboratory Technologist Visit Lab, Gurwinder Bill [facility] 1..840.114 350.1.13.10 4.2.7.2.686 [id number] [facility] 2022-07-22 09:00:00 2022-07-22 09:00:00 Outpatient R SIMONE BILL [facility] [id number] [facility] 2022-07-18 15:30:00 2022-07-18 15:53:41 Outpatient R SIMONE BILL [facility] [id number] [facility] 2022-07-18 15:30:00 2022-07-18 15:53:41 Office Visit Simone Bill [facility]I?DANKMingo [facility] 1..840.114 350.1.13.10 4.2.7.2.686 [id number] [facility] 2022-07-15 15:30:00 2022-07-15 15:30:00 Outpatient Johan SIMONE BILL [facility] [id number] [facility] 2022-07-11 10:00:00 2022-07-11 10:15:00 Nurse Visit 1, [facility] Infusion Nurse Familia Nava [facility] 1..840.114 350.1.13.10 4.2.7.2.686 [id number] [facility] 2022-07-11 10:00:00 2022-07-11 10:00:00 Outpatient FAMILIA ZELAYA [facility] [id number] [facility] 2022-07-11 10:00:00 2022-07-11 10:00:00 Outpatient FAMILIA ZELAYA [facility] [id number] [facility] 2022-07-10 00:00:00 2022-07-10 00:00:00 Patient Secure Ynes Rachel [facility] 1.2.840.114 350.1.13.10 4.2.7.2.686 [id number] [facility] 2022-07-09 15:30:00 2022-07-09 15:30:00 Outpatient Johan SIMONE BILL [facility] [id number] [facility] 2022-07-09 00:00:00 2022-07-09 00:00:00 Patient Secure Zohrehmingo [facility] 1.2.840.114 350.1.13.10 4.2.7.2.686 [id number] [facility] 2022-07-06 00:00:00 2022-07-06 00:00:[address] [facility] 1.114 350.1.13.10 4.2.7.2.686 [id number] [facility] 2022-07-04 00:00:00 2022-07-04 00:00:00 Telephone Familia Nava [facility] 1.84114 350.1.13.10 4.2.7.2.686 [id number] [facility] 2022-06-30 15:30:00 2022-06-30 15:30:00 Outpatient SIMONE ALANIZ [facility] [id number] [facility] 2022-06-27 00:00:00 2022-06-27 00:00:00 Outpatient ART FISHER [facility] [id number] [facility] 2022-06-25 00:00:00 2022-06-25 00:00:00 [facility] 1.114 350.1.13.10 4.2.7.2.686 [id number] [facility] 2022-06-25 00:00:00 2022-06-25 00:00:00 Refill Sheree Laughlin do [facility] 1.114 350.1.13.10 4.2.7.2.686 [id number] [facility] 2022-06-23 00:00:00 2022-06-23 00:00:00 Patient Secure Msg F[facility]ilia N[facility] 1.114 350.1.13.10 4.2.7.2.686 [id number] [facility] 2022-06-22 00:00:00 2022-06-22 00:00:00 Patient Secure Msg Familia Nava [facility] 1..840.114 350.1.13.10 4.2.7.2.686 [id number] [facility] 2022-06-18 13:09:09 2022-06-18 23:59:00 Outpatient R FAMILIA NAVA [facility] [id number] [facility] 2022-06-18 13:09:09 2022-06-18 23:59:00 Hospital Encounter NavaDamiánin [facility] 1..840.114 350.1.13.10 4.2.7.2.686 [id number] [facility] 2022-06-12 10:56:01 2022-06-12 23:59:00 Outpatient R FAMILIA NAVA [facility] [id number] [facility] 2022-06-12 10:56:01 2022-06-12 23:59:00 Hospital Encounter Nava, Familia [facility] 1..840.114 350.1.13.10 4.2.7.2.686 [id number] [facility] 2022-06-11 00:00:00 2022-06-11 00:00:00 Outpatient R FAMILIA NAVA [facility] [id number] [facility] 2022-06-09 00:00:00 2022-06-09 00:00:00 [facility] 1..840.114 350.1.13.10 4.2.7.2.686 [id number] [facility] 2022-06-06 00:00:00 2022-06-06 00:00:00 Outpatient R FAMILIA NAVA [facility] [id number] [facility] 2022-06-04 10:30:00 2022-06-04 10:45:00 Laboratory Technologist Visit Lab, Gurwinder BillSimone [facility] 1.2.840.114 350.1.13.10 4.2.7.2.686 [id number] [facility] 2022-06-04 10:30:00 2022-06-04 10:30:00 Outpatient R SIMONE BILL [facility] [id number] [facility] 2022-06-04 00:00:00 2022-06-04 00:00:00 Telephone Familia Nava [facility] 1.2.840.114 350.1.13.10 4.2.7.2.686 [id number] [facility] 2022-05-30 15:30:00 2022-05-30 16:37:20 Outpatient R FAMILIA NAVA [facility] [id number] [facility] 2022-05-30 15:30:00 2022-05-30 16:37:20 Office Visit NavaFamilia [facility] 1.2.840.114 350.1.13.10 4.2.7.2.686 [id number] [facility] 2022-05-30 15:30:00 2022-05-30 15:30:00 Outpatient R FAMILIA NAVA [facility] [id number] [facility] 2022-05-19 09:00:00 2022-05-19 09:00:00 Outpatient R SHEREE LAUGHLIN DO [facility] [id number] [facility] 2022-05-19 09:00:00 2022-05-19 09:00:00 Outpatient R MORENITA-STEVEU SHEREE RUSH [facility] [id number] [facility] 2022-05-09 00:00:00 2022-05-09 00:00:00 Refill Vicki Mcnally [facility] 1.2.840.114 350.1.13.10 4.2.7.2.686 [id number] [facility] 2022-05-07 00:00:00 2022-05-07 00:00:00 Refill Aryan Price [facility] 1.2.840.114 350.1.13.10 4.2.7.2.686 [id number] [facility] 2022-05-05 00:00:00 2022-05-05 00:00:00 Refill Aryan Price [facility] 1.2.840.114 350.1.13.10 4.2.7.2.686 [id number] [facility] 2022-05-05 00:00:00 2022-05-05 00:00:00 Patient Secure Licha Zuleta [facility] 1.2.840.114 350.1.13.10 4.2.7.2.686 [id number] [facility] 2022-04-22 00:00:00 2022-04-22 00:00:00 Abstract Aryan Price [facility] 1.2.840.114 350.1.13.10 4.2.7.2.686 [id number] [facility] 2022-04-22 00:00:00 2022-04-22 00:00:00 Refill Aryan Price [facility] 1.2.840.114 350.1.13.10 4.2.7.2.686 [id number] [facility] 2022-04-16 00:00:00 2022-04-16 00:00:00 Orders Only Doctor Unassigned, [place] [facility] 1.0.114 350.1.13.10 4.2.7.2.686 [id number] [facility] 2022-04-14 00:00:00 2022-04-14 00:00:00 Refill Doctor Unassigned, Estancia [facility] 1..114 350.1.13.10 4.2.7.2.686 [id number] [facility] 2022-04-14 00:00:00 2022-04-14 00:00:00 Refill Sheree Laughlin [facility] 1.114 350.1.13.10 4.2.7.2.686 [id number] [facility] 2022-04-14 00:00:00 2022-04-14 00:00:00 Refill Vicki [facility]nally [facility] 1.114 350.1.13.10 4.2.7.2.686 [id number] [facility] 2022-04-14 00:00:00 2022-04-14 00:00:00 Refill Pina Doty [facility] PROFESSIO NAL BUILDING 1.114 350.1.13.10 4.2.7.2.686 [id number] [facility] 2022-04-14 00:00:00 2022-04-14 00:00:00 Refill Aryan Price [facility] 1..114 350.1.13.10 4.2.7.2.686 [id number] [facility] 2022-04-01 11:00:00 2022-04-01 11:00:00 Outpatient R LICHA LEVI [facility] [id number] [facility] 2022-03-25 16:00:00 2022-03-25 16:33:45 Outpatient R SIMONE BILL [facility] [id number] [facility] 2022-03-25 16:00:00 2022-03-25 16:33:45 Office Visit Simone Bill [facility] 1..114 350.1.13.10 4.2.7.2.686 [id number] [facility] 2022-03-24 10:30:00 2022-03-24 10:30:00 Outpatient R SIMONE BILL [facility] [id number] [facility] 2022-03-17 10:00:00 2022-03-17 10:00:00 Outpatient R NOREEN ANDUJAR [facility] [id number] [facility] 2022-03-04 00:00:00 2022-03-04 00:00:00 Patient Secure Msg Doctor Unassigned, [place] [facility] 1.114 350.1.13.10 4.2.7.2.686 [id number] [facility] 2022-02-27 10:40:00 2022-02-27 12:05:33 Outpatient R ARYAN PRICE [facility] [id number] [facility] 2022-02-27 10:40:00 2022-02-27 12:05:33 Office Visit Vicki Mcnally Muhammad [facility] 1.114 350.1.13.10 4.2.7.2.686 [id number] [facility] 2022-02-24 09:15:00 2022-02-24 09:30:00 Laboratory Technologist Visit Lab, Simone Ryan [facility] OFF[facility] BUILD[facility] 1..114 350.1.13.10 4.2.7.2.686 [id number] [facility] 2022-02-24 09:15:00 2022-02-24 09:15:00 Outpatient R SIMONE BILL [facility] [id number] [facility] 2022-02-13 14:30:00 2022-02-13 15:52:33 Outpatient R DODIE HOANG [facility] [id number] [facility] 2022-02-13 14:30:00 2022-02-13 15:52:33 Office Visit Dodie Hoang [facility] RAVI?[facility] OFF[facility] BUILD[facility] 1.114 350.1.13.10 4.2.7.2.686 [id number] [facility] 2022-02-13 10:00:00 2022-02-13 10:00:00 Outpatient R ARYAN PRICE [facility] [id number] [facility] 2022-02-05 00:00:00 2022-02-05 00:00:00 Orders Only Doctor Unassigned, [place] [facility] .114 350.1.13.10 4.2.7.2.686 [id number] [facility] 2022-01-29 00:00:00 2022-01-29 00:00:00 Refill Dodie Hoang [facility] ONE 1..114 350.1.13.10 4.2.7.2.686 [id number] [facility] 2022-01-28 00:00:00 2022-01-28 00:00:00 Transition of Care Coral [facility] 1..840.114 350.1.13.10 4.2.7.2.686 [id number] [facility] 2022-01-25 19:06:00 2022-01-27 15:40:00 Outpatient SHIKHA AGUILAR [facility] [id number] [facility] 2022-01-25 19:06:00 2022-01-27 15:40:00 Hospital Encounter Brandon Hodge Sarah Batool Cintron, Nitza [facility] ..840.114 350.1.13.10 4.2.7.2.686 [id number] [facility] 2022-01-27 13:30:00 2022-01-27 13:30:00 Outpatient PINA DE JESUS [facility] [id number] [facility] 2022-01-15 13:00:51 2022-01-15 23:59:00 Outpatient BRENDA LANGE [facility] [id number] [facility] 2022-01-15 13:00:51 2022-01-15 23:59:00 Hospital Encounter Brenda Le [facility] ..840.114 350.1.13.10 4.2.7.2.686 [id number] [facility] 2022-01-15 12:40:00 2022-01-15 16:30:10 Office Visit Brenda Le [facility] ..840.114 350.1.13.10 4.2.7.2.686 [id number] [facility] 2022-01-15 12:40:00 2022-01-15 16:30:10 Outpatient BRENDA LANGE [facility] [id number] [facility] 2022-01-15 12:40:00 2022-01-15 12:40:00 Outpatient Johan BRENDA LE [facility] [id number] [facility] 2022-01-15 12:40:00 2022-01-15 12:40:00 Outpatient Johan ETIENNEMadan BRENDA [facility] [id number] [facility] 2022-01-13 10:00:00 2022-01-13 10:15:00 Office Visit Lul Garcia [facility] 1..114 350.1.13.10 4.2.7.2.686 [id number] [facility] 2022-01-13 10:00:00 2022-01-13 10:00:00 Outpatient LUL ESCAMILLA [facility] [id number] [facility] 2022-01-10 09:00:00 2022-01-10 09:00:00 Outpatient R PINA DTOY [facility] [id number] [facility] 2022-01-07 09:00:00 2022-01-07 09:00:00 Outpatient R PINA DOTY [facility] [id number] [facility] 2021-12-31 10:00:00 2021-12-31 10:12:52 Outpatient DODIE MENESES [facility] [id number] [facility] 2021-12-31 10:00:00 2021-12-31 10:12:52 Nurse Visit Nurse, Dodie Orellana [facility] 1.84.114 350.1.13.10 4.2.7.2.686 [id number] [facility] 2021-12-31 00:00:00 2021-12-31 00:00:00 Vicki Valentin [facility] 1..114 350.1.13.10 4.2.7.2.686 [id number] [facility] 2021-12-31 00:00:00 2021-12-31 00:00:00 Refill Dodie Hoang [facility] OFF[facility] BUILDING ONE 1.2840.114 350.1.13.10 4.2.7.2.686 [id number] [facility] 2021-12-28 00:00:00 2021-12-28 00:00:00 Patient Secure Msg Doctor Unassigned, [place] [facility] 1.2840.114 350.1.13.10 4.2.7.2.686 [id number] [facility] 2021-12-24 13:15:00 2021-12-24 13:15:00 Outpatient DODIE MENESES [facility] [id number] [facility] 2021-12-24 13:15:00 2021-12-24 13:15:00 Laboratory Technologist Visit 2, Adc Lab LawtellVictor Manuel vaughnkina Mingo [facility] BUILDING 1.2840.114 350.1.13.10 4.2.7.2.686 [id number] [facility] 2021-12-24 11:30:00 2021-12-24 12:35:03 Office Visit Viktor Victor Manuelkina Aguila [facility] 1.2.840.114 350.1.13.10 4.2.7.2.686 [id number] [facility] 2021-12-24 11:30:00 2021-12-24 12:35:03 Outpatient R DODIE HOANG [facility] [id number] [facility] 2021-12-23 00:00:00 2021-12-23 00:00:00 [facility] 1..840.114 350.1.13.10 4.2.7.2.686 [id number] [facility] 2021-12-18 08:15:00 2021-12-18 08:15:00 Outpatient Johan VIKTORVICTOR MANUEL VAUGHNJESIKALAURA [facility] [id number] [facility] 2021-12-17 13:00:00 2021-12-17 13:15:00 Nurse Visit 1, Adc Infusion Nurse BrandyFamilia [facility] 1.840.114 350.1.13.10 4.2.7.2.686 [id number] [facility] 2021-12-17 13:00:00 2021-12-17 13:00:00 Outpatient FAMILIA ZELAYA [facility] [id number] [facility] 2021-12-17 00:00:00 2021-12-17 00:00:00 Orders Only Doctor Unassigned, [place] [facility] 1.840.114 350.1.13.10 4.2.7.2.686 [id number] [facility] 2021-12-16 11:30:00 2021-12-16 11:30:00 Outpatient Johan VIKTORVICTOR MANUEL VAUGHNKINA [facility] [id number] [facility] 2021-12-12 16:15:00 2021-12-12 16:15:00 Outpatient Johan [facility] [id number] [facility] 2021-12-12 09:30:00 2021-12-12 09:30:00 Outpatient BRENDA LIEBERMAN [facility] [id number] [facility] 2021-12-12 09:30:00 2021-12-12 09:30:00 Laboratory Technologist Visit 2, Adc Lab Brenda Rabago [facility] 1.840.114 350.1.13.10 4.2.7.2.686 [id number] [facility] 2021-12-05 00:00:00 2021-12-05 00:00:00 Patient Secure Msg Doty [facility] 1.0.114 350.1.13.10 4.2.7.2.686 [id number] [facility] 2021-11-29 09:30:00 2021-11-29 09:30:00 Outpatient R DODIE HOANG [facility] [id number] [facility] 2021-11-04 00:00:00 2021-11-04 00:00:00 Telephone Dodie Hoang [facility] OFFICE BUILDING ONE 1.114 350.1.13.10 4.2.7.2.686 [id number] [facility] 2021-10-23 00:00:00 2021-10-23 00:00:00 Refill Sheree Laughlin do [facility] 1.114 350.1.13.10 4.2.7.2.686 [id number] [facility] 2021-10-18 00:00:00 2021-10-18 00:00:00 Refill Dodie Hoang [facility] OFFICE BUILDING ONE .114 350.1.13.10 4.2.7.2.686 [id number] [facility] 2021-10-14 00:00:00 2021-10-14 00:00:00 Refill Dodie Hoang [facility] 1..114 350.1.13.10 4.2.7.2.686 [id number] [facility] 2021-10-10 00:00:00 2021-10-10 00:00:00 Refill Eduard Rubio [facility] 1..114 350.1.13.10 4.2.7.2.686 [id number] [facility] 2021-10-10 00:00:00 2021-10-10 00:00:00 Patient Secure Msg Dodie Hoang [facility] 1.114 350.1.13.10 4.2.7.2.686 [id number] [facility] 2021-10-03 00:00:00 2021-10-03 00:00:00 Patient Secure Msg Doctor Unassigned, [place] [facility] 1.114 350.1.13.10 4.2.7.2.686 [id number] [facility] 2021-10-02 00:00:00 2021-10-02 00:00:00 Refill Dodie Hoang [facility] 1.114 350.1.13.10 4.2.7.2.686 [id number] [facility] 2021-10-01 00:00:00 2021-10-01 00:00:00 Refill Sheree Laughlin do [facility] 1.114 350.1.13.10 4.2.7.2.686 [id number] [facility] 2021-09-10 10:00:00 2021-09-10 10:00:00 Outpatient PINA DE JESUS [facility] [id number] [facility] 2021-09-04 00:00:00 2021-09-04 00:00:00 Refill Aryan Price [facility] 1.84.114 350.1.13.10 4.2.7.2.686 [id number] [facility] 2021-08-30 08:00:00 2021-08-30 08:00:00 Outpatient R VIKTOR VICTOR MANUELLAURA [facility] [id number] [facility] 2021-08-30 00:00:00 2021-08-30 00:00:00 Eduard Hernandez [facility] 1.840.114 350.1.13.10 4.2.7.2.686 [id number] [facility] 2021-08-23 00:00:00 2021-08-23 00:00:00 Pre Visit Outreach Viktor Victor Manuelkina Aguila [facility] Office Building One 1.840.114 350.1.13.10 4.2.7.2.686 [id number] [facility] 2021-08-22 14:30:00 2021-08-22 14:30:00 Outpatient R PINA DOTY [facility] [id number] [facility] 2021-08-19 10:00:00 2021-08-19 10:00:00 Outpatient PINA DE JESUS [facility] [id number] [facility] 2021-08-15 09:56:04 2021-08-15 11:47:05 Office Visit Vicki Mcnally Muhammad A [facility] 1.840.114 350.1.13.10 4.2.7.2.686 [id number] [facility] 2021-08-15 10:00:00 2021-08-15 10:00:00 Outpatient R ARYAN PRICE [facility] [id number] [facility] 2021-08-15 00:00:00 2021-08-15 00:00:00 Patient Secure Msg Doctor Unassigned, [place] [facility] 1.2.840.114 350.1.13.10 4.2.7.2.686 [id number] [facility] 2021-08-12 08:33:19 2021-08-12 23:59:00 Hospital Encounter Pina Doty [facility] 1.2.840.114 350.1.13.10 4.2.7.2.686 [id number] [facility] 2021-08-12 10:17:20 2021-08-12 10:32:20 Laboratory Technologist Visit 2, Adc Lab Aryan Price [facility] 1.2.840.114 350.1.13.10 4.2.7.2.686 [id number] [facility] 2021-08-12 10:17:20 2021-08-12 10:32:20 Laboratory Technologist Visit 2, Adc Lab Aryan Price [facility] 1.2.840.114 350.1.13.10 4.2.7.2.686 [id number] [facility] 2021-08-12 09:00:00 2021-08-12 09:00:00 Outpatient PINA DE EJSUS [facility] [id number] [facility] 2021-07-30 10:15:00 2021-07-30 10:15:00 Outpatient LUL ESCAMILLA [facility] [id number] [facility] 2021-07-24 00:00:00 2021-07-24 00:00:00 Refill Aryan Price [facility] 1.2840.114 350.1.13.10 4.2.7.2.686 [id number] [facility] 2021-07-24 00:00:00 2021-07-24 00:00:00 Aryan Warner [facility] 1.114 350.1.13.10 4.2.7.2.686 [id number] [facility] 2021-07-18 09:30:00 2021-07-18 09:30:00 Outpatient R JACQUELINE IRIZARRY [facility] [id number] [facility] 2021-07-08 14:30:00 2021-07-08 15:08:47 Outpatient R PINA DOTY [facility] [id number] [facility] 2021-07-08 14:24:11 2021-07-08 15:08:47 Office Visit Pina Doty [facility] 1.840.114 350.1.13.10 4.2.7.2.686 [id number] [facility] 2021-07-08 14:30:00 2021-07-08 14:30:00 Outpatient R PINA DOTY [facility] [id number] [facility] 2021-06-19 00:00:00 2021-06-19 00:00:00 Patient Secure Msg Doctor Unassigned, [place] [facility] 1.2114 350.1.13.10 4.2.7.2.686 [id number] [facility] 2021-06-13 13:47:47 2021-06-13 15:37:09 Office Visit [facility] 1.84.114 350.1.13.10 4.2.7.2.686 [id number] [facility] 2021-06-13 12:51:30 2021-06-13 13:06:30 Nurse Visit 1, Adc Infusion Nurse Familia Nava [facility] 1.0.114 350.1.13.10 4.2.7.2.686 [id number] [facility] 2021-06-13 13:00:00 2021-06-13 13:00:00 Outpatient R FAMILIA NAVA [facility] [id number] [facility] 2021-06-13 00:00:00 2021-06-13 00:00:00 Orders Only Doctor Unassigned, [place] [facility] 1.0.114 350.1.13.10 4.2.7.2.686 [id number] [facility] 2021-06-12 08:53:45 2021-06-12 23:59:00 Hospital Encounter Kristen Liang [facility] 1.0.114 350.1.13.10 4.2.7.2.686 [id number] [facility] 2021-06-12 00:00:00 2021-06-12 00:00:00 Outpatient R KRISTEN LIANG SHIIAYash [facility] [id number] [facility] 2021-06-12 00:00:00 2021-06-12 00:00:00 Refill Aryan Price [facility] 1..114 350.1.13.10 4.2.7.2.686 [id number] [facility] 2021-06-10 10:40:00 2021-06-10 23:59:00 Hospital Encounter Dodie Hoang [facility] 1.0.114 350.1.13.10 4.2.7.2.686 [id number] [facility] 2021-06-10 00:00:00 2021-06-10 00:00:00 Outpatient DODIE MENESES [facility] [id number] [facility] 2021-06-06 00:00:00 2021-06-06 00:00:00 Refill Sheree Laughlin do [facility] .114 350.1.13.10 4.2.7.2.686 [id number] [facility] 2021-06-06 00:00:00 2021-06-06 00:00:00 [facility] .114 350.1.13.10 4.2.7.2.686 [id number] [facility] 2021-06-04 00:00:00 2021-06-04 00:00:00 Patient Secure Msg Doctor Unassigned, [place] [facility] .114 350.1.13.10 4.2.7.2.686 [id number] [facility] 2021-06-03 09:00:00 2021-06-03 23:59:00 Hospital Encounter Familia Nava [facility] .114 350.1.13.10 4.2.7.2.686 [id number] [facility] 2021-06-03 00:00:00 2021-06-03 00:00:00 Outpatient KRISTEN MCNULTY SHIWAN [facility] [id number] [facility] 2021-05-30 09:10:18 2021-05-30 09:30:18 Laboratory Technologist Visit Lab, Adc Fam Pob Dodie Hendrickson [facility] Office Building One .114 350.1.13.10 4.2.7.2.686 [id number] [facility] 2021-05-30 08:29:55 2021-05-30 09:12:13 Office Visit Dodie Hoang [facility] Office Building One 1.114 350.1.13.10 4.2.7.2.686 [id number] [facility] 2021-05-30 08:30:00 2021-05-30 08:30:00 Outpatient R VICTOR MANUEL HOANGLAURA [facility] [id number] [facility] 2021-05-26 00:00:00 2021-05-26 00:00:00 Refill Dodie Hoang [facility] Office Building One .114 350.1.13.10 4.2.7.2.686 [id number] [facility] 2021-05-24 14:31:56 2021-05-24 15:59:05 Office Visit Familia Nava [facility] Building 1.114 350.1.13.10 4.2.7.2.686 [id number] [facility] 2021-05-24 14:30:00 2021-05-24 14:30:00 Outpatient R FAMILIA NAVA [facility] [id number] [facility] 2021-05-24 00:00:00 2021-05-24 00:00:00 Orders Only Doctor Unassigned, [place] [facility] .114 350.1.13.10 4.2.7.2.686 [id number] [facility] 2021-05-09 00:00:00 2021-05-09 00:00:00 Telephone Sheree Laughlin do [facility] 1.2.840.114 350.1.13.10 4.2.7.2.686 [id number] [facility] 2021-05-05 00:00:00 2021-05-05 00:00:00 Refill Dodie Hoang [facility] Office Building One 1.840.114 350.1.13.10 4.2.7.2.686 [id number] [facility] 2021-05-03 00:00:00 2021-05-03 00:00:00 Refill Aryan Price [facility] 1.0.114 350.1.13.10 4.2.7.2.686 [id number] [facility] 2021-05-02 00:00:00 2021-05-02 00:00:00 Patient Secure Vicki Payne [facility] 1.0.114 350.1.13.10 4.2.7.2.686 [id number] [facility] 2021-05-01 11:42:00 2021-05-01 23:59:00 Hospital Encounter Brenda Richter BUILDING 1.0.114 350.1.13.10 4.2.7.2.686 [id number] [facility] 2021-05-01 00:00:00 2021-05-01 00:00:00 Outpatient R BRENDA RICHTER [facility] [id number] [facility] 2021-04-29 00:00:00 2021-04-29 00:00:00 Telephone Aryan Price [facility] 1.0.114 350.1.13.10 4.2.7.2.686 [id number] [facility] 2021-04-24 00:00:00 2021-04-24 00:00:00 Telephone Aryan Price [facility] 1.2.840.114 350.1.13.10 4.2.7.2.686 [id number] [facility] 2021-04-09 00:00:00 2021-04-09 00:00:00 Case Management Aryan Price [facility] 1.2.840.114 350.1.13.10 4.2.7.2.686 [id number] [facility] 2021-04-08 00:00:00 2021-04-08 00:00:00 Telephone Sheree Laughlin do [facility] 1.2.840.114 350.1.13.10 4.2.7.2.686 [id number] [facility] 2021-04-03 15:20:00 2021-04-03 23:59:00 Hospital Encounter David Baeza A [facility] 1.2.840.114 350.1.13.10 4.2.7.2.686 [id number] [facility] 2021-04-03 00:00:00 2021-04-03 00:00:00 Outpatient R ARYAN PRICE [facility] [id number] [facility] 2021-03-31 00:00:00 2021-03-31 00:00:00 Refill Aryan Price [facility] 1.2.840.114 350.1.13.10 4.2.7.2.686 [id number] [facility] 2021-03-07 10:40:51 2021-03-07 10:55:51 Laboratory Technologist Visit Pcp-Lab Joanne Eduard Scottie [facility] 1.840.114 350.1.13.10 4.2.7.2.686 [id number] [facility] 2021-03-07 09:47:04 2021-03-07 10:41:16 Office Visit Vicenta Skelton Eduard Rubin [facility] 1.0.114 350.1.13.10 4.2.7.2.686 [id number] [facility] 2021-03-07 10:30:00 2021-03-07 10:30:00 Outpatient Johan RUBIO EDUARD [facility] [id number] [facility] 2021-03-07 00:00:00 2021-03-07 00:00:00 Case Management Joanne Eduard Rubin [facility] 1..114 350.1.13.10 4.2.7.2.686 [id number] [facility] 2021-03-04 09:06:07 2021-03-04 09:26:07 Laboratory Technologist Visit Lab, [facility] Dodie Durán [facility] Office Building One 1..114 350.1.13.10 4.2.7.2.686 [id number] [facility] 2021-03-04 09:00:00 2021-03-04 09:00:00 Outpatient DODIE MENESES [facility] [id number] [facility] 2021-02-24 00:00:00 2021-02-24 00:00:00 Aryan Warner [facility] 1..114 350.1.13.10 4.2.7.2.686 [id number] [facility] 2021-02-21 00:00:00 2021-02-21 00:00:00 Refill ViktorVictor Manueljesikaful A [facility] Office Building One 1..114 350.1.13.10 4.2.7.2.686 [id number] [facility] 2021-02-14 00:00:00 2021-02-14 00:00:00 Telephone Addy Pichardo [facility] 1..114 350.1.13.10 4.2.7.2.686 [id number] [facility] 2021-02-11 00:00:00 2021-02-11 00:00:00 Refill ViktorVictor Manueljesikaful A [facility] Office Building One .114 350.1.13.10 4.2.7.2.686 [id number] [facility] 2021-02-09 09:45:00 2021-02-09 09:45:00 Outpatient [facility] [id number] [facility] 2021-02-09 00:00:00 2021-02-09 00:00:00 Refill Vicki Mcnally [facility] .114 350.1.13.10 4.2.7.2.686 [id number] [facility] 2021-02-08 00:00:00 2021-02-08 00:00:00 Refill Viktor Victor Manueldiful A [facility] Office Building One .114 350.1.13.10 4.2.7.2.686 [id number] [facility] 2021-02-08 00:00:00 2021-02-08 00:00:00 Refill Victor Manuel Hoangdiful A [facility] Office Building One 1.114 350.1.13.10 4.2.7.2.686 [id number] [facility] 2021-02-05 10:30:00 2021-02-05 10:30:00 Outpatient EDUARD MENESES [facility] [id number] [facility] 2021-02-01 00:00:00 2021-02-01 00:00:00 Case Management Sheree Laughlin do [facility] 1.114 350.1.13.10 4.2.7.2.686 [id number] [facility] 2021-01-23 00:00:00 2021-01-23 00:00:00 Refill Dodie Hoang [facility] One .114 350.1.13.10 4.2.7.2.686 [id number] [facility] 2021-01-23 00:00:00 2021-01-23 00:00:00 Refill Aryan Price [facility] 1.114 350.1.13.10 4.2.7.2.686 [id number] [facility] 2021-01-22 15:30:00 2021-01-22 15:30:00 Outpatient JONATHAN WEATHERS [facility] [id number] [facility] 2021-01-19 09:45:00 2021-01-19 09:45:00 Outpatient [facility] [id number] [facility] 2021-01-11 00:00:00 2021-01-11 00:00:00 Patient Secure Msg Doctor Unassigned, [place] [facility] 1.114 350.1.13.10 4.2.7.2.686 [id number] [facility] 2021-01-09 15:30:00 2021-01-09 15:30:00 Outpatient JONATHAN WEATHERS [facility] [id number] [facility] 2021-01-04 00:00:00 2021-01-04 00:00:00 Outpatient R KRISTEN LIANG SHIWAN [facility] [id number] [facility] 2021-01-02 09:06:56 2021-01-02 09:26:56 Imm/Inj Visit Nurse, Dodie Fatima [facility] Office Building One ..840.114 350.1.13.10 4.2.7.2.686 [id number] [facility] 2021-01-02 09:00:00 2021-01-02 09:00:00 Outpatient DODIE MENESES [facility] [id number] [facility] 2020-12-28 08:56:28 2020-12-28 09:58:18 Office Visit Kristen Liang [facility] Building 1..840.114 350.1.13.10 4.2.7.2.686 [id number] [facility] 2020-12-28 09:00:00 2020-12-28 09:00:00 Outpatient KRISTEN MCNULTY SHIWAN [facility] [id number] [facility] 2020-12-27 14:00:00 2020-12-27 14:00:00 Outpatient JONATHAN WEATHERS [facility] [id number] [facility] 2020-12-26 11:01:11 2020-12-26 23:59:00 Hospital Encounter Brenda Le [facility] 1..840.114 350.1.13.10 4.2.7.2.686 [id number] [facility] 2020-12-26 10:54:26 2020-12-26 11:38:41 Office Visit Brenda Le [facility] 1..114 350.1.13.10 4.2.7.2.686 [id number] [facility] 2020-12-26 10:50:00 2020-12-26 10:50:00 Outpatient R BRENDA LE [facility] [id number] [facility] 2020-12-26 00:00:00 2020-12-26 00:00:00 Telephone Familia Nava [facility] Building 1..114 350.1.13.10 4.2.7.2.686 [id number] [facility] 2020-12-24 00:00:00 2020-12-24 00:00:00 RefDodie Sierra [facility] Office Building One 1..114 350.1.13.10 4.2.7.2.686 [id number] 044 [id number] [facility] 2020-12-24 00:00:00 2020-12-24 00:00:00 RefMisha Sierralaura [facility] Office Building One 1.114 350.1.13.10 4.2.7.2.686 [id number] [facility] 2020-12-14 13:00:00 2020-12-14 13:00:00 Outpatient R FAMILIA NAVA [facility] [id number] [facility] 2020-12-14 11:47:34 2020-12-14 12:02:34 Nurse Visit 1, Adc Infusion Nurse Familia Nava [facility] 1..114 350.1.13.10 4.2.7.2.686 [id number] [facility] 2020-12-14 11:30:00 2020-12-14 11:30:00 Outpatient R FAMILIA NAVA [facility] [id number] [facility] 2020-12-14 00:00:00 2020-12-14 00:00:00 Orders Only Doctor Unassigned, [place] [facility] 1.114 350.1.13.10 4.2.7.2.686 [id number] [facility] 2020-12-07 12:00:00 2020-12-07 12:00:00 Outpatient FAMILIA ZELAYA [facility] [id number] [facility] 2020-12-07 00:00:00 2020-12-07 00:00:00 Refill Dodie Hoang [facility] Office Building One 1..114 350.1.13.10 4.2.7.2.686 [id number] [facility] 2020-12-06 10:47:06 2020-12-06 11:55:08 Office Visit Eduard Rubio [facility] 1..114 350.1.13.10 4.2.7.2.686 [id number] [facility] 2020-12-06 11:00:00 2020-12-06 11:00:00 Outpatient EDUARD MENESES [facility] [id number] [facility] 2020-12-05 09:30:00 2020-12-05 09:30:00 Outpatient BRENDA LANGE [facility] [id number] [facility] 2020-12-05 00:00:00 2020-12-05 00:00:00 Case Management Dodie Hoang [facility] Office Building One ..114 350.1.13.10 4.2.7.2.686 [id number] [facility] 2020-12-03 15:00:00 2020-12-03 15:00:00 Outpatient DAVID BROWN [facility] [id number] [facility] 2020-11-30 10:31:16 2020-11-30 10:51:16 Laboratory Technologist Visit Lab, Adc Fam Pob I LawtellDodie vaughn [facility] Office Building One 1.114 350.1.13.10 4.2.7.2.686 [id number] [facility] 2020-11-30 09:22:15 2020-11-30 10:38:40 [facility] [place] [facility] 1.114 350.1.13.10 4.2.7.2.686 [id number] [facility] 2020-11-30 09:30:00 2020-11-30 09:30:00 Outpatient Johan HOANG VICTOR MANUELLAURA [facility] [id number] [facility] 2020-11-30 00:00:00 2020-11-30 00:00:00 Telephone Sheree Laughlin do [facility] 1.114 350.1.13.10 4.2.7.2.686 [id number] [facility] 2020-11-21 00:00:00 2020-11-21 00:00:00 Lul Swann [facility] 1.114 350.1.13.10 4.2.7.2.686 [id number] [facility] 2020-11-20 10:30:00 2020-11-20 10:30:00 Outpatient FAMILIA ZELAYA [facility] [id number] [facility] 2020-11-14 11:00:00 2020-11-14 11:00:00 Outpatient R ISATUHUDSONI [facility] [id number] [facility] 2020-11-14 00:00:00 2020-11-14 00:00:00 Case Management JoanneEduard [facility] 1.84.114 350.1.13.10 4.2.7.2.686 [id number] [facility] 2020-11-14 00:00:00 2020-11-14 00:00:00 Orders Only Doctor Unassigned, [place] [facility] 1..114 350.1.13.10 4.2.7.2.686 [id number] [facility] 2020-11-13 11:15:00 2020-11-13 11:15:00 Outpatient DODIE MENESES [facility] [id number] [facility] 2020-11-12 00:00:00 2020-11-12 00:00:00 [facility] 1.84.114 350.1.13.10 4.2.7.2.686 [id number] [facility] 2020-11-09 15:30:00 2020-11-09 15:30:00 Outpatient FAMILIA ZELAYA [facility] [id number] [facility] 2020-11-08 14:00:00 2020-11-08 14:00:00 Outpatient R KRISTEN LIANG SHIWAN [facility] [id number] [facility] 2020-11-08 00:00:00 2020-11-08 00:00:00 Case Management JoanneEduard [facility] 1.284.114 350.1.13.10 4.2.7.2.686 [id number] [facility] 2020-11-08 00:00:00 2020-11-08 00:00:00 Case Management JoanneEduard [facility] 1.2.840.114 350.1.13.10 4.2.7.2.686 [id number] [id number] [facility] 2020-11-06 00:00:00 2020-11-06 00:00:00 RefDodie Sierra [facility] Office Building One 1.2840.114 350.1.13.10 4.2.7.2.686 [id number] [facility] 2020-10-31 11:20:00 2020-10-31 11:20:00 Outpatient BRENDA LANGE [facility] [id number] [facility] 2020-10-30 00:00:00 2020-10-30 00:00:00 Case Management JoanneEduard [facility] 1.840.114 350.1.13.10 4.2.7.2.686 [id number] [facility] 2020-10-29 00:00:00 2020-10-29 00:00:00 Refill Misha Haongful [facility] Office Building One 1.840.114 350.1.13.10 4.2.7.2.686 [id number] [id number] [facility] 2020-10-26 00:00:00 2020-10-26 00:00:00 Refill Misha Hoangful [facility] Office Building One 1.2840.114 350.1.13.10 4.2.7.2.686 [id number] 044 [id number] [facility] 2020-10-26 00:00:00 2020-10-26 00:00:00 RefMisha Sierraful [place] [facility] Office Building One 1.2840.114 350.1.13.10 4.2.7.2.686 [id number] [id number] [facility] 2020-10-26 00:00:00 2020-10-26 00:00:00 Refill Dodie Hoang [facility] Office Building One 1.114 350.1.13.10 4.2.7.2.686 [id number] [facility] 2020-10-24 00:00:00 2020-10-24 00:00:00 Transition of Care Fu Aviva Shearyash Keyur [facility] 1.114 350.1.13.10 4.2.7.2.686 [id number] [facility] 2020-10-09 09:15:00 2020-10-09 09:15:00 Outpatient LICHA VALDEZ [facility] [id number] [facility] 2020-10-03 00:00:00 2020-10-03 00:00:00 [facility] 1. 350.1.13.10 4.2.7.2.686 [id number] [facility] 2020-10-01 00:00:00 2020-10-01 00:00:00 Refill Dodie Hoang [facility] Office Building One 1. 350.1.13.10 4.2.7.2.686 [id number] [facility] 2020-10-01 00:00:00 2020-10-01 00:00:00 Refill Dodie Hoang [facility] Office Building One 1.114 350.1.13.10 4.2.7.2.686 [id number] [facility] 2020-09-04 00:00:00 2020-09-04 00:00:00 Patient Secure Msg Aryan Price [facility] 1.2.840.114 350.1.13.10 4.2.7.2.686 [id number] [facility] 2020-09-04 00:00:00 2020-09-04 00:00:00 Refill Dodie Hoang [facility] Office Building One 1.0.114 350.1.13.10 4.2.7.2.686 [id number] [id number] [facility] 2020-09-03 00:00:00 2020-09-03 00:00:00 Refill Aryan Price [facility] 1..114 350.1.13.10 4.2.7.2.686 [id number] [facility] 2020-08-24 00:00:00 2020-08-24 00:00:00 Telephone Aryan Price [facility] 1..114 350.1.13.10 4.2.7.2.686 [id number] [facility] 2020-08-24 00:00:00 2020-08-24 00:00:00 Refill Lawtell Victor Manueljesikalaura Aguila [facility] Office Building One 1.114 350.1.13.10 4.2.7.2.686 [id number] [id number] [facility] 2020-08-23 16:00:00 2020-08-23 16:00:00 Outpatient LICHA VALDEZ [facility] [id number] [facility] 2020-08-23 00:00:00 2020-08-23 00:00:00 Refill Dodie Hoang [facility] Office Building One 1..114 350.1.13.10 4.2.7.2.686 [id number] [facility] 2020-08-17 00:00:00 2020-08-17 00:00:00 Dodie Good [facility] Office Building One 1.114 350.1.13.10 4.2.7.2.686 [id number] [facility] 2020-08-15 11:15:00 2020-08-15 11:15:00 Outpatient R RAHUL PRICEMAD [facility] [id number] [facility] 2020-08-15 07:55:18 2020-08-15 08:10:18 Telemedici ne Visit Aryan Price [facility] 1.114 350.1.13.10 4.2.7.2.686 [id number] [facility] 2020-08-08 11:15:00 2020-08-08 11:15:00 Outpatient R ARYAN PRICE [facility] [id number] [facility] 2020-08-03 10:30:00 2020-08-03 10:30:00 Outpatient R ORTEGA LEE [facility] [id number] [facility] 2020-08-03 09:08:50 2020-08-03 09:23:50 Laboratory Technologist Visit 2, Adc Lab Vicki Burk Sean [facility] Building 1.114 350.1.13.10 4.2.7.2.686 [id number] [facility] 2020-08-03 00:00:00 2020-08-03 00:00:00 BennyDodie Sierra [facility] Office Building One 1..114 350.1.13.10 4.2.7.2.686 [id number] [id number] [facility] 2020-08-03 00:00:00 2020-08-03 00:00:00 Refill Dodie Hoang [facility] Office Building One 1..114 350.1.13.10 4.2.7.2.686 [id number] [facility] 2020-07-31 00:00:00 2020-07-31 00:00:00 Telephone Aryan Price [facility] 1..114 350.1.13.10 4.2.7.2.686 [id number] [facility] 2020-07-27 10:28:20 2020-07-27 11:59:13 Office Visit Lul Garcia [facility] 1..114 350.1.13.10 4.2.7.2.686 [id number] [facility] 2020-07-27 10:45:00 2020-07-27 10:45:00 Outpatient R LUL GARCIA [facility] [id number] [facility] 2020-07-27 00:00:00 2020-07-27 00:00:00 Patient Secure Lul James [facility] 1..114 350.1.13.10 4.2.7.2.686 [id number] [facility] 2020-07-18 11:00:00 2020-07-18 11:00:00 Outpatient R ARYAN PRICE [facility] [id number] [facility] 2020-06-28 00:00:00 2020-06-28 00:00:00 Orders Only Doctor Unassigned, [place] [facility] 1..114 350.1.13.10 4.2.7.2.686 [id number] [facility] 2020-06-25 00:00:00 2020-06-25 00:00:00 Refill [facility]aughlin [facility] 1. 350.1.13.10 4.2.7.2.686 [id number] [facility] 2020-05-29 00:00:00 2020-05-29 00:00:00 Patient Secure Msg ViktorVictor Manuel vaughnkina [place] [facility] Building 1.114 350.1.13.10 4.2.7.2.686 [id number] [facility] 2020-05-17 00:00:00 2020-05-17 00:00:00 Refill LawtellVictor Manuel vaughnjesikalaura [facility] Office Building One 1.114 350.1.13.10 4.2.7.2.686 [id number] [facility] 2020-05-10 00:00:00 2020-05-10 00:00:00 Case Management Sheree Laughlin do [facility] 1. 350.1.13.10 4.2.7.2.686 [id number] [facility] 2020-05-08 11:45:00 2020-05-08 11:45:00 Outpatient R SHEREE LAUGHLIN DO [facility] [id number] [facility] 2020-05-08 00:00:00 2020-05-08 00:00:00 Refill Viktor Dodie [facility] Office Building One 1.114 350.1.13.10 4.2.7.2.686 [id number] [facility] 2020-05-08 00:00:00 2020-05-08 00:00:00 Refill Aryan Price [facility] 1.114 350.1.13.10 4.2.7.2.686 [id number] [facility] 2020-05-06 00:00:00 2020-05-06 00:00:00 Refill Viktor Victor Manuelkina [place] [facility] Office Building One 1.114 350.1.13.10 4.2.7.2.686 [id number] [facility] 2020-05-03 09:45:00 2020-05-03 09:45:00 Outpatient R VICKI MCNALLY [facility] [id number] [facility] 2020-05-03 09:09:51 2020-05-03 09:24:51 Laboratory Technologist Visit 2, Adc Lab Gianni Vicki [facility] Building 1.84.114 350.1.13.10 4.2.7.2.686 [id number] [facility] 2020-04-30 00:00:00 2020-04-30 00:00:00 Patient Secure Msg Qian rush, Sheree Lira [facility] 1.114 350.1.13.10 4.2.7.2.686 [id number] [facility] 2020-04-27 11:00:00 2020-04-27 11:00:00 Outpatient R DODIE HOANG [facility] [id number] [facility] 2020-04-27 08:56:20 2020-04-27 09:11:20 Laboratory Technologist Visit 2, Adc Lab Dodie Hoang [place] [facility] Building 1.114 350.1.13.10 4.2.7.2.686 [id number] [facility] 2020-04-19 07:48:06 2020-04-19 12:22:49 [facility]medici ne [facility] 1.840.114 350.1.13.10 4.2.7.2.686 [id number] [facility] 2020-04-19 10:15:00 2020-04-19 10:15:00 Outpatient R DODIE HOANG [facility] [id number] [facility] 2020-04-18 15:00:00 2020-04-18 15:00:00 Outpatient R RAHUL PRICEMAD [facility] [id number] [facility] 2020-03-28 10:00:00 2020-03-28 10:00:00 Outpatient R [facility] [id number] [facility] 2020-03-20 15:00:00 2020-03-20 15:00:00 Outpatient R RAHUL PRICEMAD [facility] [id number] [facility] 2020-03-20 00:00:00 2020-03-20 00:00:00 Telephone Aryan Price [facility] 1.114 350.1.13.10 4.2.7.2.686 [id number] [facility] 2020-03-16 10:09:15 2020-03-16 10:24:15 Laboratory Technologist Visit 2, Adc Lab Iveth Art [facility] Building 1.84.114 350.1.13.10 4.2.7.2.686 [id number] [facility] 2020-03-16 10:15:00 2020-03-16 10:15:00 Outpatient R IVETH ART [facility] [id number] [facility] 2020-[facility]-15 00:00:00 2020-03-15 00:00:00 Orders Only Doctor Unassigned, [place] [facility] 1.114 350.1.13.10 4.2.7.2.686 [id number] [id number] [facility] 2020-03-14 00:00:00 2020-03-14 00:00:00 Case Management Aryan Price [facility] 1..114 350.1.13.10 4.2.7.2.686 [id number] [facility] 2020-03-13 00:00:00 2020-03-13 00:00:00 Telephone David Aryan Aguila [facility] 1.114 350.1.13.10 4.2.7.2.686 [id number] [facility] 2020-03-13 00:00:00 2020-03-13 00:00:00 Telephone Sheree Laughlin do [facility] 1.114 350.1.13.10 4.2.7.2.686 [id number] [facility] 2020-02-29 10:00:00 2020-02-29 10:00:00 Outpatient R [facility] [id number] [facility] 2020-02-25 00:00:00 2020-02-25 00:00:00 Refill Dodie Hoang [facility] Office Building One .114 350.1.13.10 4.2.7.2.686 [id number] [facility] 2020-02-14 00:00:00 2020-02-14 00:00:00 Refill Aryan Price [facility] 1.114 350.1.13.10 4.2.7.2.686 [id number] [facility] 2020-02-14 00:00:00 2020-02-14 00:00:00 Letter (Out) Jerald Baig [facility] 1.840.114 350.1.13.10 4.2.7.2.686 [id number] [facility] 2020-02-09 00:00:00 2020-02-09 00:00:00 Refill Sheree Laughlin do [facility] 1.840.114 350.1.13.10 4.2.7.2.686 [id number] [facility] 2020-02-01 00:00:00 2020-02-01 00:00:00 [facility] 1.840.114 350.1.13.10 4.2.7.2.686 [id number] [facility] 2020-02-01 00:00:00 2020-02-01 00:00:00 Refill Dodie Hoang [facility] Building One 1.840.114 350.1.13.10 4.2.7.2.686 [id number] [id number] [facility] 2020-01-30 00:00:00 2020-01-30 00:00:00 Telephone Aryan Price [facility] 1.840.114 350.1.13.10 4.2.7.2.686 [id number] [facility] 2020-01-27 00:00:00 2020-01-27 00:00:00 Telephone Aryan Price [facility] 1.840.114 350.1.13.10 4.2.7.2.686 [id number] [facility] 2020-01-26 00:00:00 2020-01-26 00:00:00 Telephone [facility] 1..114 350.1.13.10 4.2.7.2.686 [id number] [facility] 2020-01-25 09:57:29 2020-01-25 10:42:30 Nurse Visit Nurse, Transplant Sheree Laughlin do [facility] 1..114 350.1.13.10 4.2.7.2.686 [id number] [facility] 2020-01-25 10:00:00 2020-01-25 10:00:00 Outpatient R SHEREE LAUGHLIN DO [facility] [id number] [facility] 2020-01-19 10:05:34 2020-01-19 11:18:48 Office Visit Dodie Hoang [facility] Office Building One 1..114 350.1.13.10 4.2.7.2.686 [id number] [facility] 2020-01-19 10:15:00 2020-01-19 10:15:00 Outpatient R DODIE HOANG [facility] [id number] [facility] 2020-01-17 00:00:00 2020-01-17 00:00:00 Eduard Hernandez [facility] 1..114 350.1.13.10 4.2.7.2.686 [id number] [facility] 2020-01-16 10:22:05 2020-01-16 13:31:44 Office Visit Sheree Laughlin do [facility] 1.840.114 350.1.13.10 4.2.7.2.686 [id number] [facility] 2020-01-16 10:20:00 2020-01-16 10:20:00 Outpatient R SHEREE LAUGHLIN DO [facility] [id number] [facility] 2020-01-16 00:00:00 2020-01-16 00:00:00 Case Management Sheree Laughlin do [facility] 1.114 350.1.13.10 4.2.7.2.686 [id number] [facility] 2020-01-13 15:23:38 2020-01-13 15:38:38 Office Visit Nathan Jimenez [facility] 1.114 350.1.13.10 4.2.7.2.686 [id number] [facility] 2020-01-13 09:07:42 2020-01-13 09:22:42 Laboratory Technologist Visit 2, Adc Lab Sheree Laughlin do [facility] Building 1.114 350.1.13.10 4.2.7.2.686 [id number] [facility] 2020-01-13 00:00:00 2020-01-13 00:00:00 Orders Only Doctor Unassigned, [place] [facility] 1.114 350.1.13.10 4.2.7.2.686 [id number] [id number] [facility] 2020-01-06 08:40:45 2020-01-06 10:50:46 Office Visit Pelon [employer] .114 350.1.13.10 4.2.7.2.686 [id number] [facility] 2020-01-04 15:44:28 2020-01-04 16:34:51 Office Visit Tiffanie Crisostomo [facility] Office Building One 1.2.840.114 350.1.13.10 4.2.7.2.686 [id number] [facility] 2019-12-29 00:00:00 2019-12-29 00:00:00 Orders Only Doctor Unassigned, [place] [facility] 1.2.840.114 350.1.13.10 4.2.7.2.686 [id number] [facility] 2019-12-15 10:19:10 2019-12-27 23:02:02 Office Visit Vicki Mcnally Muhammad A [facility] 1.2840.114 350.1.13.10 4.2.7.2.686 [id number] [facility] 2019-12-23 16:09:22 2019-12-23 17:00:36 Office Visit Dodie Hoang [facility] Office Building One 1.2840.114 350.1.13.10 4.2.7.2.686 [id number] [facility] 2019-12-16 13:48:20 2019-12-16 16:52:26 Office Visit [facility] 1.2.840.114 350.1.13.10 4.2.7.2.686 [id number] [facility] 2019-12-16 00:00:00 2019-12-16 00:00:00 Prep For Surgery [facility] 1.2.840.114 350.1.13.10 4.2.7.2.686 [id number] [facility] 2019-12-16 00:00:00 2019-12-16 00:00:00 Orders Only Doctor Unassigned, [place] [facility] 1.2.840.114 350.1.13.10 4.2.7.2.686 [id number] [facility] 2019-12-15 13:27:34 2019-12-15 15:04:28 Office Visit Jacqueline Irizarry [facility] Building 1.20.114 350.1.13.10 4.2.7.2.686 [id number] [facility] 2019-12-15 11:42:29 2019-12-15 11:52:29 Laboratory Technologist Visit Vtc-Lab Vicki Mcnally [facility] 1..114 350.1.13.10 4.2.7.2.686 [id number] [facility] 2019-12-15 00:00:00 2019-12-15 00:00:00 [facility] 1..114 350.1.13.10 4.2.7.2.686 [id number] [facility] 2019-12-13 00:00:00 2019-12-13 00:00:00 Dodie Good [facility] Office Building One 1..114 350.1.13.10 4.2.7.2.686 [id number] [id number] [facility] 2019-12-09 09:30:06 2019-12-09 09:45:06 Laboratory Technologist Visit Potrisha, [facility] Lab Main Sheree Laughlin do [facility] Building 1..114 350.1.13.10 4.2.7.2.686 [id number] [facility] 2019-12-09 00:00:00 2019-12-09 00:00:00 Orders Only Doctor Unassigned, [place] [facility] 1..114 350.1.13.10 4.2.7.2.686 [id number] [id number] [facility] 2019-12-07 00:00:00 2019-12-07 00:00:00 Telephone Aryan Price [facility] 1.114 350.1.13.10 4.2.7.2.686 [id number] [facility] 2019-11-18 15:33:10 2019-11-18 16:18:36 Office Visit Familia Nava [facility] Building 1. 350.1.13.10 4.2.7.2.686 [id number] [facility] 2019-11-13 00:59:00 2019-11-14 17:08:00 Inpatient U SARY FELICIAARACELI [facility] JEIMY [id number] [facility] 2019-10-28 10:22:54 2019-10-28 23:59:00 Outpatient BRENDA LANGE [facility] [id number] [facility] 2019-07-29 00:00:00 2019-07-29 00:00:00 Telephone [facility] 1. 350.1.13.10 4.2.7.2.686 [id number] [facility] 2019-07-27 10:37:39 2019-07-27 11:59:21 Office Visit Lul Garcia [facility] 1.114 350.1.13.10 4.2.7.2.686 [id number] [facility] 2019-07-04 00:00:00 2019-07-04 00:00:00 Dodie Good [facility] Office Building One 1.114 350.1.13.10 4.2.7.2.686 [id number] [facility] 2019-06-29 00:00:00 2019-06-29 00:00:00 RefDodie Sierra [facility] Office Building One 1.0.114 350.1.13.10 4.2.7.2.686 [id number] [id number] [facility] 2019-06-28 00:00:00 2019-06-28 00:00:00 Telephone Dodie Hoang [facility] Office Building One 1.0.114 350.1.13.10 4.2.7.2.686 [id number] [facility] 2019-06-28 00:00:00 2019-06-28 00:00:00 Telephone Aryan Price [facility] 1.0.114 350.1.13.10 4.2.7.2.686 [id number] [facility] 2019-06-28 00:00:00 2019-06-28 00:00:00 Telephone Dodie Hoang [facility] Office Building One 1..114 350.1.13.10 4.2.7.2.686 [id number] [facility] 2019-06-27 00:00:00 2019-06-27 00:00:00 Refill Dodie Hoang [facility] Office Building One .0.114 350.1.13.10 4.2.7.2.686 [id number] [id number] [facility] 2019-06-21 09:00:36 2019-06-21 10:00:54 Laboratory Technologist Visit Lab, Adc Fam Pob I Dodie Hoang [facility] Office Building One ..114 350.1.13.10 4.2.7.2.686 [id number] [facility] 2019-06-21 00:00:00 2019-06-21 00:00:00 Telephone Dodie Hoang [facility] Office Building One 1.2.840.114 350.1.13.10 4.2.7.2.686 [id number] [id number] [facility] 2019-06-17 15:02:14 2019-06-17 15:51:28 Office Visit Dodie Hoang [facility] Office Building One 1.2840.114 350.1.13.10 4.2.7.2.686 [id number] 044 [id number] [facility] Results Test Description Test Time Test Comments Results Resul t Comments Source XR CHEST 2 VW 2024-06-09 20:17:44 EXAM: XR CHEST 2 VW COMPARISON: 05/01/2023 HISTORY: shortness of breath [facility] [id number]-[id number] 19:55:02* Test Item Value Reference Range Interpretation Comme nts NT-proBNP (test code = 79252-2) 440 pg/mL <=125 ALONDRA (test code = ALONDRA) Result Indeterminate-Consid er causes of NT-proBNP elevation other than Heart failure such as acute coronary syndrome, pulmonary embolism, pulmonary hypertension, sepsis, stroke, and renal dysfunction. Lab Interpretation (test code = 63155-7) Abnormal [facility] CenterBeta Hbwlqhm-[id number] 19:51:01* Test Item Value Reference Range Interpretation Comme nts BOH (test code = 6951833078) 0.5 mmol/L ALONDRA (test code = ALONDRA) Normal Ranges: ? ? Nonfasting ? Less than 0.1 mmol/L ? ? Overnight Fast ? ? ? Less than 0.4 mmol/L ? ? Fasting (1-2 weeks) ?6-8 mmol/L Test developed and characteristics determined by [facility] Laboratory Services. [facility] CenterCOMP. METABOLIC PANEL (24020)2024-06-09 19:45:35* Test Item Value Reference Range Interpretation Comme nts NA (test code = 7035973285) 130 mmol/L 135-145 L K (test code = 2098075301) 4.4 mmol/L 3.5-5.0 CL (test code = 0310948982) 97 mmol/L 98-108 L CO2 TOTAL (test code = 6484972734) 25 mmol/L 23-31 AGAP (test code = 8201957290) 8 2-16 BUN (test code = 4522138377) 20 mg/dL 7-23 GLUCOSE (test code = 6577619445) 475 mg/dL 70-110 HH CREATININE (test code = 2160-0) 1.12 mg/dL 0.50-1.04 H TOTAL BILI (test code = 3023793363) 0.7 mg/dL 0.1-1.1 CALCIUM (test code = 3849692891) 8.7 mg/dL 8.6-10.6 T PROTEIN (test code = 2070723828) 6.2 g/dL 6.3-8.2 L ALBUMIN (test code = 1918770351) 3.6 g/dL 3.5-5.0 ALK PHOS (test code = 0668019789) 108 U/L 34-122 ALTv (test code = 1742-6) 11 U/L 5-35 AST(SGOT) (test code = 0455101995) 18 U/L 13-40 eGFR (test code = 96293-3) 53.7 mL/min/1.73m2 CKD-EPI eGFR (2020). Assuming creatinine has been stable day-to-day for at least three months, the eGFR indicates Category G3a (45 - 59 mL/min/1.73 m2) Lab Interpretation (test code = 75478-1) Abnormal [facility] CenterLIPASE2024-07-18 19:43:24* Test Item Value Reference Range Interpretation Comme nts LIPASE (test code = 1316606095) 243 U/L 0-220 H Lab Interpretation (test cod e = 05690-5) Abnormal [facility] CenterCBC WITH [id number] 19:32:19* Test Item Value Reference Range Interpretation Comme nts WBC (test code = 6690-2) 9.82 4.30-11.10 RBC (test code = 789-8) 3.68 3.93-5.25 L HGB (test code = 718-7) 10.9 g/dL 11.6-15.0 L HCT (test code = 4544-3) 33.0 % 35.7-45.2 L MCV (test code = 787-2) 89.7 fL 80.6-95.5 MCH (test code = 785-6) 29.6 pg 25.9-32.8 MCHC (test code = 786-4) 33.0 g/dL 31.6-35.1 RDW-SD (test code = 92500-1) 39.4 fL 39.0-49.9 RDW-CV (test code = 788-0) 12.3 % 12.0-15.5 PLT (test code = 777-3) 203 166-358 MPV (test code = 76613-5) 10.6 fL 9.5-12.9 NRBC/100 WBC (test code = 5609288075) 0.0 0.0-10.0 NRBC x10^3 (test code = 9554665498) See_Comment [Automated messa ge] The system which generated this result transmitted reference range: 10*3/?L. The reference range was not used to interpret this result as normal/abnormal. GRAN MAT (NEUT) % (test code = 770-8) 87.6 % IMM GRAN % (test code = 2495562963) 0.60 % LYMPH % (test code = 736-9) 6.8 % MONO % (test code = 5905-5) 4.7 % EOS % (test code = 713-8) 0.2 % BASO % (test code = 706-2) 0.1 % GRAN MAT x10^3(ANC) (test code = 6985552277) 8.60 10*3/uL 1.88-7.09 H IMM GRAN x10^3 (test code = 9675259359) 0.06 10*3/uL 0.00-0.06 LYMPH x10^3 (test code = 731-0) 0.67 10*3/uL 1.32-3.29 L MONO x10^3 (test code = 742-7) 0.46 10*3/uL 0.33-0.92 EOS x10^3 (test code = 711-2) 0.03-0.39 L BASO x10^3 (test code = 704-7) 0.01-0.07 Lab Interpretation (test code = 81802-4) Abnormal [facility]AC Panel 21 + Lactic [id number] 19:29:16* Test Item Value Reference Range Interpretation Comme nts PH (test code = 9384787879) 7.39 7.32-7.42 PCO2 LUISA (test code = 5865804966) 39 41-51 L PO2 LUISA (test code = 8156321998) 31 25-40 HCO3 LUISA (test code = 1279079198) 23 24-28 L AC VBE(BEAKER) (test code = 6804467136) -1.5 mEq/L THB LUISA (test code = 1178078888) 12.2 g/dL 12.0-16.0 %O2HB LUISA (test code = 1523403965) 58.7 % 52.0-63.0 %COHB LUISA (test code = 7770272488) 0.3 % 0.0-1.5 %METHB LUISA (test code = 0215036277) 0.3 % 0.4-1.5 L VOL%O2 LUISA (test code = 5716529658) 10.1 % 6.0-12.0 NA (test code = 8548749185) 132 mmol/L 135-145 L K+ (test code = 0654648218) 4.3 mmol/L 3.5-5.0 AC CA IONZ (test code = 4355286651) 4.50 mg/dL 4.50-5.30 GLUCOSE (test code = 3995312687) 498 mg/dL 70-110 HH LACTIC ACID (test code = 8759057001) 1.47 mmol/L 0.50-2.20 Lab Interpretation (test cod e = 31318-8) [facility]normal [facility] (81770)2024-06-09 03:45:35* Test Item Value Reference Range Interpretation Comme nts NA (test code = 5732067506) 127 mmol/L 135-145 L K (test code = 8430201178) 4.7 mmol/L 3.5-5.0 CL (test code = 4504710428) 96 mmol/L 98-108 L CO2 TOTAL (test code = 2981944041) 25 mmol/L 23-31 AGAP (test code = 2582589100) 6 2-16 BUN (test code = 7812169712) 25 mg/dL 7-23 H GLUCOSE (test code = 0308574623) 624 mg/dL 70-110 HH CREATININE (test code = 2160-0) 1.22 mg/dL 0.50-1.04 H TOTAL BILI (test code = 1213565179) 1.1 mg/dL 0.1-1.1 CALCIUM (test code = 1653273280) 8.7 mg/dL 8.6-10.6 T PROTEIN (test code = 9159011699) 6.9 g/dL 6.3-8.2 ALBUMIN (test code = 9124205088) 3.8 g/dL 3.5-5.0 ALK PHOS (test code = 8688930885) 100 U/L 34-122 ALTv (test code = 1742-6) 13 U/L 5-35 AST(SGOT) (test code = 5549908391) 44 U/L 13-40 H eGFR (test code = 55339-4) 48.4 mL/min/1.73m2 CKD-EPI eGFR (2020). Assuming creatinine has been stable day-to-day for at least three months, the eGFR indicates Category G3a (45 - 59 mL/min/1.73 m2) Lab Interpretation (test code = 33083-6) Abnormal [facility] CenterN-Terminal Ppq-[id number] 03:34:36* Test Item Value Reference Range Interpretation Comme nts NT-proBNP (test code = 42396-2) 382 pg/mL <=125 ALONDRA (test code = ALONDRA) Result Indeterminate-Consid er causes of NT-proBNP elevation other than Heart failure such as acute coronary syndrome, pulmonary embolism, pulmonary hypertension, sepsis, stroke, and renal dysfunction. Lab Interpretation (test code = 42180-0) Abnormal [facility] CenterGlycosylated Hemoglobin (A1C)2024-06-09 03:31:52* Test Item Value Reference Range Interpretation Comme nts HGB A1C (test code = 4548-4) 10.4 % 4.0-5.7 H ALONDRA (test code = ALONDRA) Reference RangesNormal: <5.7%Prediabetes: 5.7 - 6.4%Diabetes: > 6.5% Lab Interpretation (test code = 24421-4) Abnormal [facility] SARS-COV-2 ANTIGEN (BINAX NOW)2024-05-27 17:05:00* Test Item Value Reference Range Interpretation Comme nts POCT SARS-COV-2 ANTIGEN (test code = 35646-3) Not Detected Not Detected, See Comment On board controls acceptable with C Line (test code = 3574) Yes Lab Interpretation (test code = 50857-6) Normal [facility] Urinalysis W Specific [id number] 15:54:00* Test Item Value Reference Range Interpretation Comme nts POCT U SP GRAV (test code = 3255) 1.015 mg/dl 1.005-1.025 POCT PH U (test code = 3254) 5 mg/dl 5-8 POCT U LEUK EST (test code = 3263) neg Negative - Negative POCT U NIT (test code = 3262) neg Negative - Negati ve POCT U PROT (test code = 3259) 30 Negative - Negative POCT U GLU (test code = 3256) 100 Negative - Negati ve POCT U KETONE (test code = 3258) neg Negative - Negative POCT U UROBILI (test code = 3260) 0.2 mg/dl 0.2-1 POCT U BILI (test code = 3261) neg Negative - Negative POCT U BLD (test code = 3257) neg Negative - Negati ve POCT U COLOR (test code = 3266) POCT U APPEAR (test code = 3267) Lab Interpretation (test cod e = 13885-4) Abnormal [facility] CenterEXTERNAL KH-[id number] 00:00:00* Test Item Value Reference Range Interpretation Comme nts DD-cfDNA (External Results) (test code = 5126) 1.3 <=1.0 A Lab Interpretation (test cod e = 56221-9) Abnormal [facility] CenterMagnesium [id number] 20:45:45* Test Item Value Reference Range Interpretation Comme nts MAGNESIUM (test code = 4980785122) 1.6 mg/dL 1.7-2.4 L Lab Interpretation (test cod e = 84930-4) Abnormal [facility] CenterMagnesium Lgykd9108-72-81 20:45:45* Test Item Value Reference Range Interpretation Comme nts MAGNESIUM (test code = 8522922065) 1.6 mg/dL 1.7-2.4 L Lab Interpretation (test cod e = 58875-6) Abnormal [facility] (NA, K, CL, CO2, Glucose, BUN, Creatinine, CA)2023-06-05 20:45:25* Test Item Value Reference Range Interpretation Comme nts NA (test code = 4635874598) 138 mmol/L 135-145 K (test code = 2268659111) 3.8 mmol/L 3.5-5.0 CL (test code = 6234995328) 105 mmol/L 98-108 CO2 TOTAL (test code = 8389896149) 22 mmol/L 23-31 L AGAP (test code = 6520132055) 11 2-16 BUN (test code = 4572317551) 34 mg/dL 7-23 H GLUCOSE (test code = 8367073917) 97 mg/dL 70-110 CREATININE (test code = 1516781403) 1.17 mg/dL 0.50-1.04 H CALCIUM (test code = 7146836441) 9.7 mg/dL 8.6-10.6 eGFR (test code = 5815303825) 46.1 mL/min/1.73m2 ALONDRA (test code = ALONDRA) Association of [...] or abnormalities in imaging tests). Lab Interpretation (test code = 14933-0) Abnormal [facility] CenterPhosphorus [id number] 20:45:25* Test Item Value Reference Range Interpretation Comme nts PHOSPHORUS (test code = 9546000831) 3.9 mg/dL 2.5-5.0 Lab Interpretation (test cod e = 05697-2) Normal [facility] (NA, K, CL, CO2, Glucose, BUN, Creatinine, CA)2023-06-05 20:45:25* Test Item Value Reference Range Interpretation Comme nts NA (test code = 1600181984) 138 mmol/L 135-145 K (test code = 1563021969) 3.8 mmol/L 3.5-5.0 CL (test code = 7324159569) 105 mmol/L 98-108 CO2 TOTAL (test code = 0757677405) 22 mmol/L 23-31 L AGAP (test code = 6544879037) 11 2-16 BUN (test code = 0265239825) 34 mg/dL 7-23 H GLUCOSE (test code = 3737426027) 97 mg/dL 70-110 CREATININE (test code = 9548780037) 1.17 mg/dL 0.50-1.04 H CALCIUM (test code = 3674981368) 9.7 mg/dL 8.6-10.6 eGFR (test code = 4877811853) 46.1 mL/min/1.73m2 ALONDRA (test code = ALONDRA) Association of [...] or abnormalities in imaging tests). Lab Interpretation (test code = 65705-9) [facility] [id number] 20:45:25* Test Item Value Reference Range Interpretation Comme nts PHOSPHORUS (test code = 6976081629) 3.9 mg/dL 2.5-5.0 Lab Interpretation (test cod e = 27519-3) [facility] with [id number] 20:09:19* Test Item Value Reference Range Interpretation Comme nts WBC (test code = 6690-2) 10.43 See_Comment [Automated [employer] BBOXX] The system which generated this result transmitted reference range: 4.30 - 11.10 10*3/?L. The reference range was not used to interpret this result as normal/abnormal. RBC (test code = 789-8) 3.08 See_Comment L [Automated [employer] BBOXX] The system which generated this result transmitted reference range: 3.93 - 5.25 10*6/?L. The reference range was not used to interpret this result as normal/abnormal. HGB (test code = 718-7) 9.6 g/dL 11.6-15.0 L HCT (test code = 4544-3) 29.1 % 35.7-45.2 L MCV (test code = 787-2) 94.5 fL 80.6-95.5 MCH (test code = 785-6) 31.2 pg 25.9-32.8 MCHC (test code = 786-4) 33.0 g/dL 31.6-35.1 RDW-SD (test code = 23899-1) 43.4 fL 39.0-49.9 RDW-CV (test code = 788-0) 12.7 % 12.0-15.5 PLT (test code = 777-3) 267 See_Comment [Automated messa ge] The system which generated this result transmitted reference range: 166 - 358 10*3/?L. The reference range was not used to interpret this result as normal/abnormal. MPV (test code = 06692-8) 9.8 fL 9.5-12.9 NRBC/100 WBC (test code = 2172169265) 0.0 See_Comment [Automated me ssage] The system which generated this result transmitted reference range: 0.0 - 10.0 /100 WBCs. The reference range was not used to interpret this result as normal/abnormal. NRBC x10^3 (test code = 9444377728) See_Comment [Automated messa ge] The system which generated this result transmitted reference range: 10*3/?L. The reference range was not used to interpret this result as normal/abnormal. GRAN MAT (NEUT) % (test code = 770-8) 74.8 % IMM GRAN % (test code = 5036092526) 1.20 % LYMPH % (test code = 736-9) 17.1 % MONO % (test code = 5905-5) 6.1 % EOS % (test code = 713-8) 0.5 % BASO % (test code = 706-2) 0.3 % GRAN MAT x10^3(ANC) (test code = 5546505914) 7.81 10*3/uL 1.88-7.09 H IMM GRAN x10^3 (test code = 7316472560) 0.12 10*3/uL 0.00-0.06 H LYMPH x10^3 (test code = 731-0) 1.78 10*3/uL 1.32-3.29 MONO x10^3 (test code = 742-7) 0.64 10*3/uL 0.33-0.92 EOS x10^3 (test code = 711-2) 0.05 10*3/uL 0.03-0.39 BASO x10^3 (test code = 704-7) 0.03 10*3/uL 0.01-0.07 Lab Interpretation (test code = 08818-4) Abnormal [facility] with Bmsferowtuha7619-63-33 20:09:19* Test Item Value Reference Range Interpretation Comme nts WBC (test code = 6690-2) 10.43 See_Comment [Automated messa ge] The system which generated this result transmitted reference range: 4.30 - 11.10 10*3/?L. The reference range was not used to interpret this result as normal/abnormal. RBC (test code = 789-8) 3.08 See_Comment L [Automated messa ge] The system which generated this result transmitted reference range: 3.93 - 5.25 10*6/?L. The reference range was not used to interpret this result as normal/abnormal. HGB (test code = 718-7) 9.6 g/dL 11.6-15.0 L HCT (test code = 4544-3) 29.1 % 35.7-45.2 L MCV (test code = 787-2) 94.5 fL 80.6-95.5 MCH (test code = 785-6) 31.2 pg 25.9-32.8 MCHC (test code = 786-4) 33.0 g/dL 31.6-35.1 RDW-SD (test code = 26731-4) 43.4 fL 39.0-49.9 RDW-CV (test code = 788-0) 12.7 % 12.0-15.5 PLT (test code = 777-3) 267 See_Comment [Automated messa ge] The system which generated this result transmitted reference range: 166 - 358 10*3/?L. The reference range was not used to interpret this result as normal/abnormal. MPV (test code = 44121-6) 9.8 fL 9.5-12.9 NRBC/100 WBC (test code = 4169673261) 0.0 See_Comment [Automated me ssage] The system which generated this result transmitted reference range: 0.0 - 10.0 /100 WBCs. The reference range was not used to interpret this result as normal/abnormal. NRBC x10^3 (test code = 5108454188) See_Comment [Automated messa ge] The system which generated this result transmitted reference range: 10*3/?L. The reference range was not used to interpret this result as normal/abnormal. GRAN MAT (NEUT) % (test code = 770-8) 74.8 % IMM GRAN % (test code = 8078867121) 1.20 % LYMPH % (test code = 736-9) 17.1 % MONO % (test code = 5905-5) 6.1 % EOS % (test code = 713-8) 0.5 % BASO % (test code = 706-2) 0.3 % GRAN MAT x10^3(ANC) (test code = 6354657469) 7.81 10*3/uL 1.88-7.09 H IMM GRAN x10^3 (test code = 1988056160) 0.12 10*3/uL 0.00-0.06 H LYMPH x10^3 (test code = 731-0) 1.78 10*3/uL 1.32-3.29 MONO x10^3 (test code = 742-7) 0.64 10*3/uL 0.33-0.92 EOS x10^3 (test code = 711-2) 0.05 10*3/uL 0.03-0.39 BASO x10^3 (test code = 704-7) 0.03 10*3/uL 0.01-0.07 Lab Interpretation (test code = 18566-8) [facility]QJGFI1124[facility]45-14 00:00:00* Test Item Value Reference Range Interpretation Comme nts DD-cfDNA (External Results) (test code = 5126) 1.3 <=1.0 A Lab Interpretation (test cod e = 29316-9) Abnormal [facility] Center[facility] Cmzgu9105-70-95 21:15:45* Test Item Value Reference Range Interpretation Comme nts MAGNESIUM (test code = 7797952670) 1.7 mg/dL 1.7-2.4 Lab Interpretation (test cod e = 95328-9) Normal [facility] (NA, K, CL, CO2, Glucose, BUN, Creatinine, CA)2022-12-29 21:15:30* Test Item Value Reference Range Interpretation Comme nts NA (test code = 8770997117) 138 mmol/L 135-145 K (test code = 0309397814) 4.3 mmol/L 3.5-5.0 CL (test code = 7529818928) 104 mmol/L 98-108 CO2 TOTAL (test code = 1275656428) 27 mmol/L 23-31 AGAP (test code = 4314241890) 7 2-16 BUN (test code = 8779871923) 24 mg/dL 7-23 H GLUCOSE (test code = 9685459355) 75 mg/dL 70-110 CREATININE (test code = 1525250723) 1.16 mg/dL 0.50-1.04 H CALCIUM (test code = 3280478166) 9.1 mg/dL 8.6-10.6 eGFR (test code = 1411605910) 46.7 mL/min/1.73m2 ALONDRA (test code = ALONDRA) Association of [...] or abnormalities in imaging tests). Lab Interpretation (test code = 27214-2) Abnormal [facility] CenterPhosphorus Wrqys8173-64-40 21:15:29* Test Item Value Reference Range Interpretation Comme nts PHOSPHORUS (test code = 2647376006) 4.1 mg/dL 2.5-5.0 Lab Interpretation (test cod e = 90248-9) Normal [facility] with Fzepeqwnhhkh3091-80-21 19:57:13* Test Item Value Reference Range Interpretation Comme nts WBC (test code = 6690-2) 9.45 See_Comment [Automated Ozmotta BBOXX] The system which generated this result transmitted reference range: 4.30 - 11.10 10*3/?L. The reference range was not used to interpret this result as normal/abnormal. RBC (test code = 789-8) 3.22 See_Comment L [Automated [employer]ta BBOXX] The system which generated this result transmitted reference range: 3.93 - 5.25 10*6/?L. The reference range was not used to interpret this result as normal/abnormal. HGB (test code = 718-7) 9.9 g/dL 11.6-15.0 L HCT (test code = 4544-3) 30.6 % 35.7-45.2 L MCV (test code = 787-2) 95.0 fL 80.6-95.5 MCH (test code = 785-6) 30.7 pg 25.9-32.8 MCHC (test code = 786-4) 32.4 g/dL 31.6-35.1 RDW-SD (test code = 22923-7) 42.2 fL 39.0-49.9 RDW-CV (test code = 788-0) 12.2 % 12.0-15.5 PLT (test code = 777-3) 210 See_Comment [Automated Ozmotta ge] The system which generated this result transmitted reference range: 166 - 358 10*3/?L. The reference range was not used to interpret this result as normal/abnormal. MPV (test code = 29203-5) 10.3 fL 9.5-12.9 NRBC/100 WBC (test code = 1952895071) 0.0 See_Comment [Automated Compound Time ssage] The system which generated this result transmitted reference range: 0.0 - 10.0 /100 WBCs. The reference range was not used to interpret this result as normal/abnormal. NRBC x10^3 (test code = 2392570156) See_Comment [Automated Ozmotta ge] The system which generated this result transmitted reference range: 10*3/?L. The reference range was not used to interpret this result as normal/abnormal. GRAN MAT (NEUT) % (test code = 770-8) 70.7 % IMM GRAN % (test code = 8401781000) 0.80 % LYMPH % (test code = 736-9) 20.3 % MONO % (test code = 5905-5) 7.2 % EOS % (test code = 713-8) 0.6 % BASO % (test code = 706-2) 0.4 % GRAN MAT x10^3(ANC) (test code = 8097133378) 6.67 10*3/uL 1.88-7.09 IMM GRAN x10^3 (test code = 8598777858) 0.08 10*3/uL 0.00-0.06 H LYMPH x10^3 (test code = 731-0) 1.92 10*3/uL 1.32-3.29 MONO x10^3 (test code = 742-7) 0.68 10*3/uL 0.33-0.92 EOS x10^3 (test code = 711-2) 0.06 10*3/uL 0.03-0.39 BASO x10^3 (test code = 704-7) 0.04 10*3/uL 0.01-0.07 Lab Interpretation (test code = 24062-7) Abnormal [facility] (RESULTS)2022-10-14 18:53:02* Test Item Value Reference Range Interpretation Comme nts FVC Actual (test code = 3994) 1.33 L FEV1 Actual (test code = 3993) 1.21 L FEV1/FVC Actual (test code = 3995) 91 % [facility] Notes Date/Time Note Provider Source 2024-06-13 13:56:46 7699-92-60Z46:56:46 Refilled myfortic as Brand as requested by the pt in a my chart message. 09797-0Mvoeneury encounter NcdjMQ9272-00-43I83:57:13Telephone encounter NoteTXT1.2.840.612412.1.13.104.2.7.2 .257357|3796922949LTRnkwjeonw for patient kylq49430-9UiecWFNFIAUCRQEUemhyfjya C-CDA narrative textUT[address] Jwyj[id number] WPNIGBDCSHJOPOGKDARIOM8266-81-63P42: 57:131.2.840.455090.1.72.3.15|1.2.84 0.999620.1.13.104.2.7.2.727879_21512 53134 [facility] 2024-06-13 10:41:43 0232-19-38V12:41:43 Taylor Garcia is a 69 year old female pt daughter calling about PT mycophenolate sodium (MYFORTIC) 180 mg EC tablet, we sent a RX for the generic they are asking only for the silver designer type to be prescribed, please advise.Mingo [facility] - [place], [place] - [address] [facility] [id number] [place] [phone]: [phone] Djiqyxtzpyqqhd signed by Cody Nelson at 06/13/2024 10:43 AM QJA55025-4Eybdulwrv encounter IvcsGR2095-20-71I62:43:05Telephone encounter NoteTXT1.2.840.144524.1.13.104.2.7.2 .729093|6796591855AGBvdylmgco for patient mzkr11863-0SummGXXLXWBXUBUJcfjgasde C-CDA narrative nttm912299149Ajtqnez [id number] QMEXIBUZMHEUQDWGTQYOKB0901-92-94C20: 43:051.2.840.535271.1.72.3.15|1.2.84 0.930080.1.13.104.2.7.2.727879_21509 40110 Cody Nelson [facility] 2024-06-13 08:25:40 8200-74-29Y65:25:40 How is she today, does she still need a different antibiotic. 53888-7Prplptjeq encounter TstbKY7129-28-29L41:26:15Telephone encounter NoteTXT1.2.840.291753.1.13.104.2.7.2 .183480|[id number] for patient wrku37995-6RzfnCDMPDARSMJBHmxmjadlr C-CDA narrative textUT[id number] SWLYWOFZGRARTATNZUNEMF6269-63-04C69: 26:151.2.840.904719.1.72.3.15|1.2.84 0.143373.1.13.104.2.7.2.727879_21507 05487 [facility] 2024-06-10 08:24:46 2855-28-88A38:24:46 Repeat cmp in 1 week, start insulin as prescribed see endocrine , follow up with me as discussed 34436-0Zpoebicmz encounter DggbEH7144-23-15A06:27:36Telephone encounter NoteTXT1.2.840.792245.1.13.104.2.7.2 .136525|3352340243FPMkaxvofyk for patient fdam89290-5KqreWNCZARYIQTKVedlmhsgp C-CDA narrative text[id number] EATJXNTYSZCSGSCPRKZGSU2511-62-55E40: 27:361.2.840.200490.1.72.3.15|1.2.84 0.529866.1.13.104.2.7.2.727879_21492 31884 [facility] 2024-06-09 16:44:44 7022-94-63R58:44:44 Pt discharged to home. Discharge instructions given to pt regarding prescription usage, management of condition and instructions to follow up with PCP. Pt verbalized understanding. PIV removed without complications. Patient in possession of all belongings. Pt to lobby via wheelchair. 15460-8Ruprlzdsu department WunnEC3759-41-37S61:45:07[facility] NoteTXT1.2.840.307922.1.13.104.2.7.2 .767620|9062069761LVPtkpcegvg for patient wstx83513-0WtrrMKEWMWVINZMGcqfqgiwj C-CDA narrative fjxa266301100Gkipqtbpa Johnson RNUT[id number] PWMASEYRQHWXIRUWOSOCVE1822-31-50W52: 45:071.2.840.280333.1.72.3.15|1.2.84 0.636291.1.13.104.2.7.2.727879_21488 63946 Monique Izaguirre RN [facility] 2024-06-09 16:01:09 2838-78-33J62:01:09 Taylor Garcia is a 69 year old female presents to ED 137 aox4 and ambulatory for cc of hyperglycemia x 2 weeks. Pt is compliant with diabetic medication. Per patient when her blood sugar increases, blurry vision, dizziness, SOB and fatigue. Pt denies having those symptoms currently. Pt also has hx of HTN and osteoporosis. No signs of distress noted. Pt placed on telemetry monitor. 81946-5Doiwmymca department IbleGQ8471-69-28Z09:21:16[facility] department NoteTXT1.2.840.406093.1.13.104.2.7.2 .154748|8967175138TLJfgyqasci for patient lijh32764-1VexpQZFRMJLXEOAWhqcjjgmm C-CDA narrative textUT[address] SuzuTjuphdoeiLcaaotjwkDIFC9898410543 QOKEGSJRNWXGVKTLCJPFZV3145-91-42I24: 21:161.2.840.614440.1.72.3.15|1.2.84 0.705435.1.13.104.2.7.2.727879_21488 99707 [facility] 2024-06-09 14:15:53 1772-79-57M62:15:53 Pt to xray via stretcher 53004-6Ldwaypdwu department InodWZ7566-51-14A71:16:02[facility] department NoteTXT1.2.840.567600.1.13.104.2.7.2 .332671|0088042177VVNoohvalar for patient uulc09929-5CchyXBYTKSHGKSBSpvyatbie C-CDA narrative text[id number] DAIWYEXXHJUMPIBBTVHPYZ0327-66-18D31: 16:021.2.840.356364.1.72.3.15|1.2.84 0.522307.1.13.104.2.7.2.727879_21486 42847 [facility] 2024-06-09 13:19:02 5484-53-96S95:19:02 Taylor Garcia is a 69 year old female presents to ED accompanied by daughter c/o hyperglycemia x 2-3 weeks. Reports was seen at clinic yesterday for labs and told to come here today. Per chart review, BGL 624. Pt is aox4 with gcs 15 skin warm and dry resp even and unlabored. NAD noted. Pt to room for eval. 32822-0Lqscqkchw department Triage fuecLK9924-48-59N33:22:09Emergency department Triage noteTXT1.2.840.974828.1.13.104.2.7.2 .060768|4767555948OKPuehaxsup for patient onoj51466-7Rkbttiihr department NoteLNNARRATIVEFormatted C-CDA narrative [id number] Nini RNUT[id number] YUBLSBBLCNAZBFIJHWKJZT3383-44-04G04: 22:091.2.840.985928.1.72.3.15|1.2.84 0.894094.1.13.104.2.7.2.727879_21486 75020 Radha Arboleda RN [facility] 2024-06-08 16:30:00 4419-29-00T15:30:00 Images from the original note were not included.Venipuncture collection performed by clean technique on the left anticubitus. Total of 1 attempts were made. Slight pressure and a bandage/dressing were applied to the site(s). The patient experienced no complications. The following specimens were processed according to instructions and sent to [facility] laboratories per lab order on TODAY:LT BLUESSTREDLAV 2PPTLT GREEN (LiHep) 1DK GREEN (SodH)GRAYDK BLUE (K2)DK BLUE (S)ACDBlood CultureNIPT/NTDPatient has been identified by name and was provided with cup, antiseptic towelette, and clean catch instructions. 1 urine specimen(s) sent.UnpreservedUrine CultureAptima tubeOther urine microalbumin 90033-8Jsxth SnuiFA5671-54-26P86:41:20Nurse NoteTXT1.2.840.766172.1.13.104.2.7.2 .814393|6678059135AFYvvixdcxt for patient rwdr87827-8Unbui NoteLNNARRATIVEFormatted C-CDA narrative textUT[address] JfxsKr[id number] YNAAFCKEYMVMWFTFHXUCWU3386-20-43Y74: 41:201.2.840.812662.1.72.3.15|1.2.84 0.355690.1.13.104.2.7.2.727879_21476 91612 [facility] 2024-06-07 13:31:33 0905-20-45F22:31:33 VIJI 03/07/24NOV 09/05 21654-8Bnmkeddtq encounter GdnrAO5461-55-95Y18:33:45Telephone encounter NoteTXT1.2.840.962523.1.13.104.2.7.2 .016297|9310196063DJPlofmhjdi for patient lrlm82794-0OjdbBVXICCPCPFGLbbnfflsa C-CDA narrative text[id number] GZACQCFKVJPXGVUQYOLUYP5834-05-45V83: 33:451.2.840.588007.1.72.3.15|1.2.84 0.991159.1.13.104.2.7.2.727879_21463 61386 [facility] 2024-06-06 10:26:46 7679-92-04J86:26:46 [facility] standing lab orders placed. Called pt to notify her. Notified pt via telephone. 54036-5Vmxjqvzlh encounter SnuwDY7654-49-30E20:28:34Telephone encounter NoteTXT1.2.840.736811.1.13.104.2.7.2 .506471|7140750806KILzcoqnvvx for patient zbeg96210-6EmclDRDNANNRFBNFcbnahmdn C-CDA narrative [id number] QMQIBBGOFYOFCFXLJCDTMG0470-89-09B01: 28:341.2.840.267756.1.72.3.15|1.2.84 0.875835.1.13.104.2.7.2.727879_21449 19115 [facility] 2024-06-06 09:03:58 9245-17-35Q23:03:58 Taylor Garcia is a 69 year old femaleMaricruz pts daughter is calling to request lab orders, Pt states, lab does not have orders placed, [facility] is [facility], Please adviseP: [phone] signed by Leatha Ricketts at 06/06/2024 9:06 AM EZR40212-9Oixhcmybc encounter EhctBV9305-77-67T65:06:00Telephone encounter NoteTXT1.2.840.897752.1.13.104.2.7.2 .039099|7789906276DEXxsyzzrtd for patient ydtb30243-5CbqnMUASCQZCACFGihyitbom C-CDA narrative sfxa353906025Bctbnn N Fields[id number] IXSVVKIZIONXLGAKZTXWNU6885-52-64M81: 06:001.2.840.967832.1.72.3.15|1.2.84 0.152124.1.13.104.2.7.2.727879_21447 18303 Leatha Ricketts [facility] 2024-06-06 09:00:00 1662-57-92Z59:00:00 Images from the original note were not included.Venipuncture collection performed by clean technique on the right anticubitus. Total of 1 attempts were made. Slight pressure and a bandage/dressing were applied to the site(s). The patient experienced no complications. The following specimens were processed according to instructions and sent to [facility] laboratories per lab order on 06/06/2024:LT BLUESSTREDLAV 1PPTDK GREEN (LiHep)DK GREEN (SodH)GRAYDK BLUE (K2)DK BLUE (S)ACDBlood CultureNIPT/NTD 71811-1Fmlxa LvumQS9108-18-00B32:11:46Nurse NoteTXT1.2.840.526418.1.13.104.2.7.2 .707098|7183969983LOQyqgwdydi for patient zjqi32320-1Wtegm NoteLNNARRATIVEFormatted C-CDA narrative text[id number] MANWKJBRVBRSDVWGLSWHPL4512-46-07Z02: 11:461.2.840.151986.1.72.3.15|1.2.84 0.616501.1.13.104.2.7.2.727879_21447 39271 [facility] 2024-05-31 09:03:00 5688-02-46U87:03:00 Refill request forRequested PrescriptionsPending Prescriptions Disp RefillsINCRUSE ELLIPTA 62.5 mcg/actuation DsDv [Pharmacy Med Name: INCRUSE ELLIPTA 62.5MCG ORAL INH 30] 30 Each 11Sig: INHALE 1 PUFF BY MOUTH DAILYLOV 30980YFV not scheduled1. Mild persistent asthma without complication J45.302. Lung nodule R91.13. SURAJ (obstructive sleep apnea) G47.33Plan:Will continue with current asthma managementWill get repeat CT scan around January4Patient is compliant and deriving benefit, will send in prescription for new CPAP supplies 82203-7Obxlorsvw encounter BqmaMC6695-93-00E78:04:51Telephone encounter NoteTXT1.2.840.235866.1.13.104.2.7.2 .732735|7533291341KCFbvtgnhud for patient viyu27959-2KjfdWTMXLZESCTGXlojjajqh C-CDA narrative zyyv852940317Qbsq Sheavly RNUT[address] ZqcaSflsjrtduEjuijaoolRNKX5477147145 LCOGVEGPDAKVQEHCZFEJKU0189-43-04D00: 04:511.2.840.901968.1.72.3.15|1.2.84 0.871861.1.13.104.2.7.2.727879_21405 35189 Enedelia Reinoso RN [facility] 2024-05-24 13:59:16 6133-97-03W50:59:16 VIJI 03/07/24NOV 09/05/24 67739-6Rjqdbafwf encounter XysmEO8764-50-77O74:00:40Telephone encounter NoteTXT1.2.840.182226.1.13.104.2.7.2 .669820|7710057525HFIstlsajxn for patient pjcx73449-2JrkiYBIXZVWJWFMIoszpefyu C-CDA narrative cqmd555509441Blvyuotn R Cox RNUT[id number] UUVEKHXHDBGKDXABJPZOXU6108-07-08N21: 00:401.2.840.118468.1.72.3.15|1.2.84 0.845462.1.13.104.2.7.2.727879_21368 40648 Anna Chang RN [facility] 2024-05-24 07:28:49 6317-07-84D48:28:49 Last Refilled:Disp Refills Start End DAWALBUTEROL 90 mcg/actuation inhaler 8.5 g 0 05/02/2024 -- NoSig: INHALE 2 PUFFS BY MOUTH EVERY 6 HOURS NEEDED FOR WHEEZING OR SHORTNESS OF BREATHSent to pharmacy as: ALBUTEROL 90 mcg/actuation inhalerClass: eRXRoute: InhalationOrder: [id number]/Time Signed: 05/02/2024 15:52E-Prescribing Status: Receipt confirmed by pharmacy (05/02/2024 3:52 PM CDT)Notes:Recent VisitsDate Type Provider Dept02/22/24 Office Visit Simone Bill FNP [facility]09/16/23 Office Visit Simone Bill FNP [facility]06/02/23 Office Visit Simone Bill FNP [facility]04/03/23 Office Visit Simone Bill FNP [facility]01/27/23 Office Visit Simone Bill FNP [facility] Fam MedShowing recent visits within past 540 days with a meds authorizing provider and meeting all other requirementsFuture AppointmentsDate Type Provider Dept06/27/24 Appointment Simone Bill FNP [facility] MedShowing future appointments within next 150 days with a meds authorizing provider and meeting all other requirements 97756-8Crwcppcad encounter BqlcCT9289-43-18J91:30:44Telephone encounter NoteTXT1.2.840.314160.1.13.104.2.7.2 .231333|4325010551OYXiurzrxzh for patient qppb08563-8BkjoTXBLNQDSZUILjkexwmgy C-CDA narrative fvpj752880372Eaoee J Bunte RN[address]TXTX[address]75[address] CMZPVDXKLGNOBDEGIPHFBS3386-25-57T20: 30:441.2.840.772865.1.72.3.15|1.2.84 0.848728.1.13.104.2.7.2.727879_21362 80756 Andria Steward RN [facility] 2024 08:24:58 3986-10-52K76:24:58 Annual Wellness Visit - Pre Visit OutreachPatient name: Taylor GarciaPatient outreach attempt regarding Annual Wellness Visit.Call outcome: Sent by mail and mychartHRA outcome: HRA sent by mail and MychartFuture AppointmentsProvider Department Dept Phone05/18/2024 4:40 PM Jessy Lemon, MARCIN [facility] [phone]/11/2023 4:00 PM Simone Bill FNP [facility], [facility] [phone]/ 9:00 AM Lab, [facility], [facility] [phone]/ 3:30 PM Familia Nava MD [facility] Endocrinology, [facility] [phone]/05/2024 9:00 AM Lab, Ang - Db [facility], [facility] [phone]/ 3:30 PM Transplant, Kidney Medicine [facility], [facility] [phone] signed by Valeri Kendrick MA at 2024 8:31 AM PBT87268-8Iegpzqvbz encounter FqjwSX3270-49-74X49:31:26Telephone encounter NoteTXT1.2.840.049127.1.13.104.2.7.2 .671180|7476354433NHSodojwaxk for patient xewg69369-9VdscJLHQVUOOJNAFufdyejth C-CDA narrative yqnn741169620Jumtw A Hanson MAUT[address] AbfnJbvmcdvwfFrxtcvldlACSB0232844933 CCVHANBTQXDXVKVFBIJTFY6423-84-38L99: 31:261.2.840.112458.1.72.3.15|1.2.84 0.194009.1.13.104.2.7.2.727879_21295 05147 Valeri Kendrick MA [facility] 2024-05-02 15:34:37 3156-93-93X78:34:37 Images from the original note were not included.Notes: 04/08/24Last Refilled:[facility] #[id number] [place] [address] [address] [facility] OSPhone: Ayfqus VisitsDate Type Provider Dept02/22/24 Office Visit Simone Bill FNP [facility]09/16/23 Office Visit Simone Bill FNP [facility]06/02/23 Office Visit Simone Bill FNP [facility]04/03/23 Office Visit Simone Bill FNP [facility]01/27/23 Office Visit Simone Bill FNP [facility] MedShowing recent visits within past 540 days with a meds authorizing provider and meeting all other requirementsFuture AppointmentsDate Type Provider Dept05/23/24 Appointment Simone Bill FNP [facility] MedShowing future appointments within next 150 days with a meds authorizing provider and meeting all other requirementsName from pharmacy: ALBUTEROL HFA INH (200 PUFFS) 8.5GMWill file in chart as: ALBUTEROL 90 mcg/actuation inhalerSig: INHALE 2 PUFFS BY MOUTH EVERY 6 HOURS NEEDED FOR WHEEZING OR SHORTNESS OF BREATHDisp: 8.5 g Refills: 0 (Pharmacy requested: Not specified)Start: 4Class: eRXFor: Subacute cough, SOB (shortness of breath)Last ordered: 3 weeks ago (04/08/2024) by Nissa Luna refill: 4Rx #: [id number]|1|0|1Pulmonology & Allergy: Beta Agonists and Anti-muscarinics Qcdrqt0205/01/2024 11:58 AMProtocol Details Manual Review: If patient not on inhaled steroid and using bronchodilator more than twice weekly for more than 4 weeks or is having a night cough patient should be seen immediately.Manual Review: Staff refilling for allergy - 1 month supply only unless insurance requires a 3 month supply, then 3 month supply approved.Valid encounter within last 12 monthsTo be filled at: [facility] #[id number] [place] [address] [address] AT [facility] [address] [place] [id number] encounter [id number]:35:23Telephone encounter [id number] .[id number] for patient uevr58433-0YuljXRCZIQRVCLUGmugkgiuh C-CDA narrative textUTMBUT - [address] V[id number] AWTDXSXUNGKVKSMZORFGOG3690-16-25V24: 35:231.2.840.157860.1.72.3.15|1.2.84 0.5[id number]_[id number] [facility] 2024-04-07 07:59:58 [id number]:59:58 Images from the original note were not included.Name from pharmacy: ALBUTEROL HFA INH (200 PUFFS) 8.5GMWill file in chart as: ALBUTEROL 90 mcg/actuation inhalerSig: INHALE 2 PUFFS BY MOUTH EVERY 6 HOURS NEEDED FOR WHEEZING OR SHORTNESS OF BREATHDisp: 8.5 g Refills: 0 (Pharmacy requested: Not specified)Start: 04/07/2024lass: eRXFor: Subacute cough, SOB (shortness of breath)Last ordered: 3 weeks ago (03/11/2024) by Nissa Luna refill: 4Rx #: [id number]|1|0|1Pulmonology & Allergy: Beta Agonists and Anti-muscarinics Moevom2204/07/2024 03:41 AMProtocol Details Manual Review: If patient not on inhaled steroid and using bronchodilator more than twice weekly for more than 4 weeks or is having a night cough patient should be seen immediately.Manual Review: Staff refilling for allergy - 1 month supply only unless insurance requires a 3 month supply, then 3 month supply approved.Valid encounter within last 12 monthsTo be filled at: [facility] #[id number] [place] [address] [address] [facility] & [place]Recent VisitsDate Type Provider Dept02/22/24 Office Visit Simone Bill FNP [facility]09/16/23 Office Visit Simone Bill FNP [facility]06/02/23 Office Visit Simone Bill FNP [facility]04/03/23 Office Visit Simone Bill FNP [facility]01/27/23 Office Visit Simone Bill FNP [facility] Fam MedShowing recent visits within past 540 days with a meds authorizing provider and meeting all other requirementsFuture AppointmentsDate Type Provider Dept07/01/24 Appointment Zohrehmingo Simone, ORDER ENTRY Ang-Db Cbc Fam MedShowing future appointments within next 150 days with a meds authorizing provider and meeting all other requirements 36403-6Jnecejjwy encounter MdrgVO7569-97-27F38:00:07Telephone encounter NoteTXT1.2.840.487156.1.13.104.2.7.2 .220648|[id number] for patient wost85986-7NxadPEKVPBFFKVJPaspczbtd C-CDA narrative [id number] M Fisher [id number] CRPZBTRPEJEIRJNESOOPEU6170-14-50E64: 00:071.2.840.808844.1.72.3.15|1.2.84 0.585072.1.13.104.2.7.2.727879_21007 [id number] Ynes Tyler [facility] 2024-03-25 15:41:08 2315-60-06Z54:41:08 VIJI OV 09/05 60275-5Nfhucwssb encounter ZtvpEB3777-24-89L41:42:29Telephone encounter NoteTXT1.2.840.317810.1.13.104.2.7.2 .299534|[id number] for patient kvrr12840-2IoldNOCZCWIAVSXBuezzobuh C-CDA narrative [id number] R Cox [id number] YPVDKOLYRZXXAHDOJHGDDM9906-46-11E89: 42:291.2.840.773062.1.72.3.15|1.2.84 0.005009.1.13.104.2.7.2.727879_20907 [id number] Anna Chang RN [facility] - Health 2024-03-21 09:11:03 7347-75-43K05:11:03 Images from the original note were not included.Notes: 12/21/23Last Refilled:[facility] #[id number] - [place] [address] [address] [facility] & [place]Phone: Xtbeye VisitsDate Type Provider Dept02/22/24 Office Visit Simone Bill, JENNIFER [facility]09/16/23 Office Visit Simone Bill, JENNIFER [facility]06/02/23 Office Visit Simone Bill, ORDER ENTRY [facility]04/03/23 Office Visit Simone Bill, ORDER ENTRY [facility]01/27/23 Office Visit Simone Bill, ORDER ENTRY [facility] Fam MedShowing recent visits within past 540 days with a meds authorizing provider and meeting all other requirementsFuture AppointmentsDate Type Provider Dept05/23/24 Appointment Simone Bill FNP [facility] MedShowing future appointments within next 150 days with a meds authorizing provider and meeting all other requirementsName from pharmacy: OMEPRAZOLE 20MG CAPSULESWill file in chart as: OMEPRAZOLE 20 mg capsuleSig: TAKE 1 CAPSULE BY MOUTH DAILYDisp: 90 capsule Refills: 0 (Pharmacy requested: Not specified)Start: 4Class: eRXFor: Gastroesophageal reflux disease without esophagitisLast ordered: 3 months ago (12/21/2023) by Nissa Luna refill: 4Rx #: [id number]|1|0|1Gastroenterology: Antiulcer - Proton Pump Inhibitors Dzpwhr1803/19/2024 01:28 PMProtocol Details Valid encounter within last 12 monthsTo be filled at: [facility] #[id number] - [facility] [address] AT [facility] [place] [address]-7Crltihwve encounter KdsjFY3552-05-98L91:14:33Telephone encounter NoteTXT1.2.840.842975.1.13.104.2.7.2 .747501|5800203942ZMEqgalekgh for patient fikl88820-0XzjbMDNCHYPNEMKAegeyvfyi C-CDA narrative text[id number] XUVUHNYYDJLKNJBYBYIDNG1307-93-34N04: 14:331.2.840.349017.1.72.3.15|1.2.84 0.484627.1.13.104.2.7.2.727879_20857 [id number] [facility] 2024-03-16 09:53:52 6318-76-73C82:53:52 VIJI 03/07/24NOV 09/05/24 13331-9Frooxmwkf encounter PyycVJ3855-51-66X00:56:43Telephone encounter NoteTXT1.2.840.502808.1.13.104.2.7.2 .270172|[id number] for patient brpg14566-1RnjvBGWBWUVZEGJHzageocjv C-CDA narrative text[id number] OBPYUSTCIWUUYJRMFABXNV3969-24-49Y11: 56:431.2.840.346125.1.72.3.15|1.2.84 0.066999.1.13.104.2.7.2.727879_20823 [id number] [facility] 2024-03-14 08:30:21 8260-92-37F27:30:21 Images from the original note were not included.Notes: 09/22/23Last Refilled:[facility] #[id number] - [place] [address] [address] [facility] & [place]Phone: IKCT HBA1C (%)Date Value08/25/2014 5.603 5.6Recent VisitsDate Type Provider Dept03/07/24 Office Visit Sheree Adler MD [facility] Oanzkhd68/01/24 Office Visit Simone Bill, ORDER ENTRY [facility]09/16/23 Office Visit Simone Bill, ORDER ENTRY [facility]08/20/23 Office Visit Chante Medel MD [facility] Ohomscs18/11/23 Office Visit Simone Bill, ORDER ENTRY [facility]04/03/23 Office Visit Simone Bill FNP [facility]02/18/23 Office Visit Chante Medel MD [facility] Xwpbvvf41/07/23 Office Visit Simone Bill, ORDER ENTRY Ang-Db Cbc Fam MedShowing recent visits within past 540 days with a meds authorizing provider and meeting all other requirementsFuture AppointmentsDate Type Provider Dept05/23/24 Appointment Simone Bill FNP [facility] MedShowing future appointments within next 150 days with a meds authorizing provider and meeting all other requirementsName from pharmacy: GLIPIZIDE 10MG TABLETSWill file in chart as: GLIPIZIDE 10 mg tabletPossible duplicate: Hover to review recent actions on this medicationSig: TAKE 1 TABLET BY MOUTH TWICE DAILY BEFORE BREAKFAST AND DINNERDisp: 180 tablet Refills: 1 (Pharmacy requested: Not specified)Start: 4Class: eRXFor: Controlled type 2 diabetes mellitus with chronic kidney disease, without long-term current use of insulin, unspecified CKD stageLast ordered: 5 months ago (09/22/2023) by Nissa Luna refill: 4Rx #: [id number]|1|0|1To be filled at: [facility] #[id number] - [place] [address] [address] [facility] [place] [address]-5Yifkqdbhq encounter YrfvHK5446-33-24K66:31:12Telephone encounter NoteTXT1.2.840.224236.1.13.104.2.7.2 .938726|[id number] for patient wzyv43487-8JtpmWZZAUKMLSEBUrthawdvt C-CDA narrative textUT[address] LtpxLxyfxibarMfnphkbalHNDM9316042763 CXYBNMCUSOJZEZSKUFAHJL9533-86-66C06: 31:121.2.840.815360.1.72.3.15|1.2.84 0.814183.1.13.104.2.7.2.727879_20799 [id number] [facility] 2024-03-11 13:28:48 6058-25-02H42:28:48 Images from the original note were not included.Requested RenewalsName from pharmacy: ALBUTEROL HFA INH (200 PUFFS) 8.5GMWill file in chart as: ALBUTEROL 90 mcg/actuation inhalerSig: INHALE 2 PUFFS EVERY 6 HOURS NEEDED FOR WHEEZING OR SHORTNESS OF BREATH.Disp: 8.5 g Refills: 0 (Pharmacy requested: Not specified)Start: 03/11/2024lass: eRXFor: Subacute cough, SOB (shortness of breath)Last ordered: 1 year ago (01/27/2023) by Nissa Luna refill: 01/27/2023Rx #: [id number]|1|0|1Pulmonology & Allergy: Beta Agonists and Anti-muscarinics Fipomt2603/11/2024 01:23 PMProtocol Details Manual Review: If patient not on inhaled steroid and using bronchodilator more than twice weekly for more than 4 weeks or is having a night cough patient should be seen immediately.Manual Review: Staff refilling for allergy - 1 month supply only unless insurance requires a 3 month supply, then 3 month supply approved.Valid encounter within last 12 monthsTo be filled at: [facility] #[id number] - [place] [address] [address] AT [facility] & [place]Recent VisitsDate Type Provider Dept02/22/24 Office Visit Simone Bill, ORDER ENTRY [facility]09/16/23 Office Visit Simone Bill, ORDER ENTRY [facility]06/02/23 Office Visit Simone Bill, ORDER ENTRY [facility]04/03/23 Office Visit Simone Bill, ORDER ENTRY [facility]01/27/23 Office Visit Simone Bill, ORDER ENTRY Ang[facility] Fam MedShowing recent visits within past 540 days with a meds authorizing provider and meeting all other requirementsFuture AppointmentsDate Type Provider Dept05/23/24 Appointment Simone Bill FNP [facility]Showing future appointments within next 150 days with a meds authorizing provider and meeting all other requirements 89482-5Crsncfttj encounter CpydIA2760-02-94Q50:29:16Telephone encounter NoteTXT1.2.840.683146.1.13.104.2.7.2 .873546|[id number] for patient vbuk33339-7NtxpRQFILXRAFLWYdmycnlcz C-CDA narrative [id number] M Fisher [address] Gdv[id number] KLQSXSPQHXWSUYWDNGRTPQ4224-13-77P07: 29:161.2.840.220497.1.72.3.15|1.2.84 0.633570.1.13.104.2.7.2.727879_20789 [id number] Ynes Tyler LVN [facility] 2024-03-04 13:48:41 7753-56-12N32:48:41 VIJI 08/20/23NOV 03/07/24 13940-2Qvgnhbavz encounter DcnkSE7180-81-41I95:52:44Telephone encounter NoteTXT1.2.840.251778.1.13.104.2.7.2 .552584|8826147712RRVhiyhopdj for patient fjbj92564-1OqyyQIQAGKEGCJWMlldbsglb C-CDA narrative pvvb967154536Aeyquhdp R Cox RNUT[address] [id number] WVTMICCWVLHHQKWUUSXRDM5146-43-31B62: 52:441.2.840.701988.1.72.3.15|1.2.84 0.814955.1.13.104.2.7.2.727879_20732 85579 Anna Chang RN [facility] 2024-02-23 09:25:29 7286-52-23F32:25:29 Patient has been notified of test results/ recommendations per Racheal Elias verbal understanding 30910-7Dkjkzcnkz encounter MxowDZ4053-09-00C28:25:38Telephone encounter NoteTXT1.2.840.384916.1.13.104.2.7.2 .454877|5314397917QGAjfhcmrih for patient txay57343-8UpktXCVPZQXHPFNVlkgodupb C-CDA narrative textUT[address] [id number] SGUGPDBKNYDDXQSZVMFDYF1625-04-03A98: 25:381.2.840.926161.1.72.3.15|1.2.84 0.196212.1.13.104.2.7.2.727879_20635 [id number] [facility] 2024-02-23 09:18:55 3921-72-27S60:18:55 Reported lab results and patients daughter wanted to know if she can take omega 3 OTC.Please adviseUrine micro mildly idhgkspyS7S improving . Continue on glipizide 10mg will add 2.5mg in addition for total of 12.5mgTriglycerides are elevated. Recommend avoiding/limiting starchy foods (potatoes/pastas/cereals), sugary drinks, baked goods, etoh, high fat meats- ham, sausage, caruso; butter/margarineIncrease foods in omega 3 by eating fish or fish oil, and increase fiberAdd first oil.Continue statin 09797-0Cosacvujw encounter JiqeDY4418-02-48B60:22:13Telephone encounter NoteTXT1.2.840.616265.1.13.104.2.7.2 .514814|9984814194VSGwjlqdune for patient cpge78932-6PektBFYOXKIKFINWicwzvnqm C-CDA narrative textUT87 [address] StreetClorUratjdnblHcgzfwogdLWIZ9018451057 TXBFALWNFIZFQYRQTIZKOF7063-59-57P46: 22:131.2.840.104560.1.72.3.15|1.2.84 0.169016.1.13.104.2.7.2.727879_20635 [id number] [facility] 2024-02-23 08:15:02 5062-93-15N77:15:02 Continue glipizide 10mg bid but add 2.5 mg in am doseRTO in 3 months 03438-4Blauzudmc encounter QedlUZ5261-48-04F06:16:33Telephone encounter NoteTXT1.2.840.527625.1.13.104.2.7.2 .578384|8197460912ILBovkzwsel for patient qtcy87570-6ZccyZJQIRNKNISDZpcefimxx C-CDA narrative text[id number] FRIBNJIJTVETUAJNOYEKPL0843-82-63Y70: 16:331.2.840.199523.1.72.3.15|1.2.84 0.801231.1.13.104.2.7.2.727879_20634 7[address]73 [facility] 2024-02-22 16:30:00 8434-05-19O57:30:00 Images from the original note were not included.Venipuncture collection performed by clean technique on the right forearm(s). Total of 1 attempts were made. Slight pressure and a bandage/dressing were applied to the site(s). The patient experienced no complications. The following specimens were processed according to instructions and sent to [facility] laboratories per lab order on 02/22/2024:LT BLUE1 SSTRED1 LAVPPTDK GREEN (LiHep)DK GREEN (SodH)GRAYDK BLUE (K2)DK BLUE (S)ACDBlood CultureNIPT/NTDPatient has been identified by and name and was provided with cup, antiseptic towelette, and clean catch instructions. 1 urine specimen(s) sent.1 UnpreservedUrine CultureAptima tubeOther urine 24047-3Semsd VlpbEO4232-27-53S23:46:04Nurse NoteTXT1.2.840.753206.1.13.104.2.7.2 .927774|[id number] for patient argx38105-6Ciouz NoteLNNARRATIVEFormatted C-CDA narrative text[id number] KPOYDHBRNTTXJMPEBIAMDV6761-52-85P73: 46:041.2.840.840581.1.72.3.15|1.2.84 0.512521.1.13.104.2.7.2.727879_20630 15963 [facility] 2024-02-10 08:45:00 3829-16-87W71:45:00 Images from the original note were not included.Venipuncture collection performed by clean technique on the left anticubitus. Total of 1 attempts were made. Slight pressure and a bandage/dressing were applied to the site(s). The patient experienced no complications. The following specimens were processed according to instructions and sent to [facility] laboratories per lab order on 02/10/2024 :LT BLUESST 1REDLAV 2PPTDK GREEN (LiHep)DK GREEN (SodH)GRAYDK BLUE (K2)DK BLUE (S)ACDBlood CultureNIPT/NTDPatient has been identified by and name and was provided with cup, antiseptic towelette, and clean catch instructions. 2 urine specimen(s) sent.Unpreserved 2Urine CultureAptima tubeOther urine 71472-3Bpqfg EatxCD6794-73-82B47:50:28Nurse NoteTXT1.2.840.727451.1.13.104.2.7.2 .561902|[id number] for patient wvsg37605-0Mxmcj NoteLNNARRATIVEFormatted C-CDA narrative textUT[address] RtnrOswcqvnkyBkjzalafjVYUI1313030830 FGDNWOIWPKTPUORTCDWUIG7456-33-31Z14: 50:281.2.840.738448.1.72.3.15|1.2.84 0.167312.1.13.104.2.7.2.727879_20533 77194 [facility] 2023-12-24 09:30:00 1234-71-92F86:30:00 Images from the original note were not included.Only bmp per nurse request.Venipuncture collection performed by clean technique on the left anticubitus. Total of 1 attempts were made. Slight pressure and a bandage/dressing were applied to the site(s). The patient experienced no complications. The following specimens were processed according to instructions and sent to [facility] laboratories per lab order on 12/24/2023:LT BLUESST 1RSTREDLAVPPTDK GREEN (LiHep)DK GREEN (SodH)GRAYDK BLUE (K2)DK BLUE (S)ACDBlood CultureNIPT/NTD 66028-8Uovhd KxnbOQ4018-06-66K55:25:07Nurse NoteTXT1.2.840.435336.1.13.104.2.7.2 .136783|[id number] for patient vdjc95625-1Lujpt NoteLNNARRATIVEFormatted C-CDA narrative textUT87 [address] StreetBvayDcjswhsccJavtqvjlcRETP7103650008 KCMBIPLMKTQUDDTKUXIFFC7199-40-81Z03: 25:071.2.840.816266.1.72.3.15|1.2.84 0.758638.1.13.104.2.7.2.727879_20135 67188 [facility] 2023-12-15 15:12:21 3821-82-28Y81:12:21 Orders for CPAP Supplies submitted via fax to [facility].All forms scanned into chart along with fax confirmation.If any questions on status order please contact [facility]#[phone] signed by Erma Head MA at 12/15/2023 3:14 PM UXM61795-0Emkuqoetc encounter LsuhMM6689-47-03C84:14:05Telephone encounter NoteTXT1.2.840.556744.1.13.104.2.7.2 .081567|0995937223DDHkzwgbrbb for patient xewj54990-6FplpCEYDCPQFJTRBzsjdqdvb C-CDA narrative xczd207703033Hlevdskvy D Garcia [id number] STSTLMIRBKRJCHRQMQQUUR2656-95-21P44: 14:051.2.840.583929.1.72.3.15|1.2.84 0.451369.1.13.104.2.7.2.727879_20060 125[address] Ermacurly Head [facility] 2023-12-08 15:49:32 9057-02-23W28:49:32 Patient needing BMP rechecked before next prolia injection on 12/18 due to previous elevated. 57659-8Peckacfao encounter GscbNB3044-63-30F81:52:43Telephone encounter NoteTXT1.2.840.586475.1.13.104.2.7.2 .612815|5348726177MPWugshbqvj for patient wchs44141-3AvvoZQCVNTXYXTTHkyavkzpf C-CDA narrative [id number] WNQFVHXUYESQHSOLWHDNFG7561-91-18H51: 52:431.2.840.446053.1.72.3.15|1.2.84 0.835818.1.13.104.2.7.2.727879_20003 28581 [facility] 2023-11-30 07:34:55 7718-61-74J18:34:55 Last Refilled: famotidine 20 mg iwzfor42 oyowsc2409/27/2024----Sig: Take 1 tablet by mouth 2 (two) times daily.Sent to pharmacy as: famotidine 20 mg tablet (PEPCID AC)Class: eRXRoute: OralOrder: [id number]/Time Signed: 11/27/2023 15:00E-Prescribing Status: Receipt confirmed by pharmacy (11/27/2023 3:00 PM FRENCH PASTRY COOK)Notes: duplicate request. Sent 11/27/23Recent VisitsDate Type Provider Dept1 Office Visit Simone Bill, ORDER ENTRY [facility]06/02/23 Office Visit Simone Bill, ORDER ENTRY [facility]04/03/23 Office Visit Simone Bill, ORDER ENTRY Ang[facility]01/27/23 Office Visit Simone Bill, ORDER ENTRY [facility]07/18/22 Office Visit Simone Bill, ORDER ENTRY Ang-Db Cbc Fam MedShowing recent visits within past 540 days with a meds authorizing provider and meeting all other requirementsFuture AppointmentsDate Type Provider Dept12/21/23 Appointment Simone Bill, ORDER ENTRY Ang-[facility]01/18/24 Appointment Simone Bill, ORDER ENTRY Ang-Db Cbc Fam MedShowing future appointments within next 150 days with a meds authorizing provider and meeting all other requirements 10814-7Yceejqlks encounter OixmQD6671-65-36J73:37:26Telephone encounter NoteTXT1.2.840.668370.1.13.104.2.7.2 .839628|[id number] for patient ahmw25029-2OiacZPDJGONWGFBLlflrkygp C-CDA narrative njjv338650072Qnujk J Bunte RN[address] PnqrXzdzogksdFiorcdjbfSGCG7701289364 GZSBVUAVZDGIZWGFYNXKMH2866-30-23U68: 37:261.2.840.992321.1.72.3.15|1.2.84 0.071733.1.13.104.2.7.2.727879_19937 59758 Andria Steward RN [facility] 2023-11-27 12:11:03 0201-81-21I08:11:03 Images from the original note were not included.Requested Renewalsfamotidine 20 mg tabletSig: Take 1 tablet by mouth 2 (two) times daily.Disp: 60 tablet Refills: 1Start: 11/27/2023lass: eRXFor: Gastroesophageal reflux disease without esophagitisLast ordered: 3 months ago (08/05/2023) by DNAE Lunaastroenterology: Antiulcer - H2 Antagonists Wdajnl2411/27/2023 11:13 AMProtocol Details Cr in normal range and within 360 daysValid encounter within last 12 monthseGFR in normal range and within 360 daysTo be filled at: [facility] #[id number] [place] [address] [address] [facility] & BRAZOSRecent VisitsDate Type Provider Dept1 Office Visit Simone Bill, JENNIFER Ang-Db [facility]06/02/23 Office Visit Simone Bill, ORDER ENTRY [facility]04/03/23 Office Visit Simone Bill FNP [facility]01/27/23 Office Visit Simone Bill FNP [facility]07/18/22 Office Visit Simone Bill FNP Ang-Db Cbc Fam MedShowing recent visits within past 540 days with a meds authorizing provider and meeting all other requirementsFuture AppointmentsDate Type Provider Dept12/21/23 Appointment Simone Bill FNP [facility]01/18/24 Appointment Simone Bill FNP Ang-Db Cbc Fam MedShowing future appointments within next 150 days with a meds authorizing provider and meeting all other requirements 47994-4Mrwxlhxsk encounter IytxEW2466-92-62Y95:11:21Telephone encounter NoteTXT1.2.840.239157.1.13.104.2.7.2 .725685|8132278229QUMugaphhkh for patient slzv75787-7GqkfRLLOXRASNXMOgfxkwqjo C-CDA narrative fyde959652459Dezxidb M Fisher LV[id number] GWBCYZNXKQYGTDFUOUFVOT9441-55-62B25: 11:211.2.840.835502.1.72.3.15|1.2.84 0.726770.1.13.104.2.7.2.727879_19927 [address]861 Ynes Tyler HUSBANDRY PERSON [facility] 2023-11-24 10:24:42 0644-54-04O50:24:42 Requested PrescriptionsPending Prescriptions Disp RefillsIRBESARTAN 150 mg tablet [Pharmacy Med Name: IRBESARTAN 150MG TABLETS] 90 tabletSig: TAKE 1 TABLET BY MOUTH AT BEDTIMEThere is no refill protocol information for this orderLOV: 08/20/23NOV: 02/15/24BP stable. Refilled per protocol. ERMA ALLAN RN 11/24/2023 10:25 AM 90232-8Enntindym encounter NpzgEQ7132-36-67H90:26:36Telephone encounter NoteTXT1.2.840.860279.1.13.104.2.7.2 .948504|9414478169TUMlndelarp for patient evdy58743-0RpuzKVKGHMKJZTRUgwyqzghn C-CDA narrative rjji772239472Odbnsujuv Beck RNUT[address] JxqrMdtanuckwVavcoaefgABBR3589499584 XNIGZLMDHRPKCJFGGAPWMJ6975-96-03W09: 26:361.2.840.318400.1.72.3.15|1.2.84 0.847992.1.13.104.2.7.2.727879_19894 01181 Erma Allan RN [facility] 2023-11-20 08:45:00 6539-75-83M68:45:00 Images from the original note were not included.Venipuncture collection performed by clean technique on the right anticubitus. Total of 1 attempts were made. Slight pressure and a bandage/dressing were applied to the site(s). The patient experienced no complications. The following specimens were processed according to instructions and sent to [facility] laboratories per lab order on 11/20/2023:LT BLUESST 1REDLAV 1PPTDK GREEN (LiHep)DK GREEN (SodH)GRAYDK BLUE (K2)DK BLUE (S)ACDBlood CultureNIPT/NTDCYCLOSPORIN PEAK 2 HR and VITAMIN D, 25-OH only per patient 36131-7Vcsol DcexKT6558-70-05D28:10:11Nurse NoteTXT1.2.840.747765.1.13.104.2.7.2 .391846|[id number] for patient cegp22217-6Ulwvj NoteLNNARRATIVEFormatted C-CDA narrative textUT[address] HoepLwlofwcapBqzfnvxbjUFGU7698654401 NHGXCTRZKYAHSFUGALWYZK8959-11-31N09: 10:111.2.840.644449.1.72.3.15|1.2.84 0.776756.1.13.104.2.7.2.727879_19876 46876 [facility] 2023-11-19 14:29:01 3701-84-01U40:29:01 68 y/0 kidney txp date 05/02/2010Calcium has been 9.2 - 9. Since January 2023 should she stop calcitriol?Last PTH -- 59.7 - 26.3 11/[address] Gita Blanchard stop it and check vit D level next labsDiscussed with patient's daughter. Questions were encouraged and answered. Patient expressed understanding and acceptance. 27489-9Jibdmhipl encounter WyiiSH7971-81-86D96:39:04Telephone encounter NoteTXT1.2.840.249065.1.13.104.2.7.2 .166537|3491639633HWDyrnnbxcs for patient ltgr59642-7YttfFAOXVSWQDSMNsplmdemc C-CDA narrative textUT[address] H[id number] XRQQCPMGPOBQKPOKCITFTP1047-22-33F85: 39:041.2.840.904527.1.72.3.15|1.2.84 0.232300.1.13.104.2.7.2.727879_19871 [id number] [facility] 2023-08-05 15:02:01 [id number]:02:01 Last Refilled: FAMOTIDINE 20 mg tablet 60 tablet 0 01/30/2023 No Sig: TAKE 1 TABLET BY MOUTH TWICE DAILY Sent to pharmacy as: famotidine 20 mg tablet (PEPCID AC) Class: eRX Order: [id number] Date/Time Signed: 01/30/2023 16:23 E-Prescribing Status: Receipt confirmed by pharmacy (01/30/2023 4:23 PM [facility]) Recent VisitsDate Type Provider Dept 06/02/23 Office Visit Simone Bill FNP [facility] 04/03/23 Office Visit Simone Bill FNP [facility] 01/27/23 Office Visit Simone Bill FNP [facility] 07/18/22 Office Visit Simone Bill FNP [facility] 03/25/22 Office Visit Simone Bill FNP [facility] Showing recent visits within past 540 days with a meds authorizing provider and meeting all other requirementsFuture AppointmentsDate Type Provider Dept 09/02/23 Appointment Simone Bill FNP [facility] Showing future appointments within next 150 days with a meds authorizing provider and meeting all other requirements 65770-3Gojerwocw encounter HyzzHP4987-65-90A97:05:50Telephone encounter NoteTXT1.2.840.465595.1.13.104.2.7.2 .257253|[id number] for patient yvgl01856-3TeunFRYOXDOEZC[id number] MOBNVWGCVLKWVWYKTBLKBI4336-13-59K77: 05:501.2.840.092889.1.72.3.15|1.2.84 0.365675.1.13.104.2.7.2.727879_18986 9[address]62 [facility] 2023-08-03 13:09:06 [id number]:09:06 Requested Prescriptions Pending Prescriptions Disp Refills famotidine 20 mg tablet 60 tablet 0 Sig: Take 1 tablet by mouth 2 (two) times daily. VIJI: 02/18/23NOV: 08/20/23Last refilled on 06/19/23 with 5 refills. Refill requested too early per guidelines. ERMA ALLAN RN 08/03/2023 1:12 PM 80558-0Tblvirddr encounter NbsrLD2158-90-87H38:13:09Telephone encounter NoteTXT1.2.840.475570.1.13.104.2.7.2 .407407|[id number] for patient [id number] CVFWGFTYXEJXRTZHYQIQNQ5573-18-32O92: 13:091.2.840.178220.1.72.3.15|1.2.84 0.642741.1.13.104.2.7.2.727879_18962 [id number] [facility] 2023-07-03 17:47:24 1827-01-96L86:47:24 Patient notified and verbalized understanding 63848-4Evsxuaogf encounter CohoUC9932-16-75Y68:47:34Telephone encounter NoteTXT1.2.840.520372.1.13.104.2.7.2 .025493|[id number] for patient tczt76760-8AzevZLKWUTGODS[id number] KLNBJCTKFXVJUESKMGTKSU0607-91-15Z32: 47:341.2.840.535721.1.72.3.15|1.2.84 0.564663.1.13.104.2.7.2.727879_18726 [id number] [facility] 2023-07-03 17:16:32 8284-78-69J10:16:32 I send over an antibiotics for you to start 01544-7Myroqhbjf encounter LogvCP6671-45-20Q63:16:58Telephone encounter NoteTXT1.2.840.499421.1.13.104.2.7.2 .778934|[id number] for patient oywj01018-8TbhnRGKIROVODQ76 [id number] LEEFNZZGOSLYXQNFEBTHDI3889-22-57A21: 16:581.2.840.049049.1.72.3.15|1.2.84 0.044520.1.13.104.2.7.2.727879_18726 [id number] [facility] 2023-06-10 11:15:00 9316-57-94T70:15:00 Images from the original note were not included.Per Nina from [employer] services CYA 2 should be sent as whole blood refrigerated.Grecia Duncan 06/10/2023 9:30 AMVenipuncture collection performed by clean technique on the right anticubitus. Total of 1 attempts were made. Slight pressure and a bandage/dressing were applied to the site(s). The patient experienced no complications. The following specimens were processed according to instructions and sent to [facility] laboratories per lab order on today: LT BLUE SST RED LAV 1 WB PPT DK GREEN (LiHep) DK GREEN (SodH) FAUSTIN DK BLUE (K2) DK BLUE (S) ACD Blood Culture NIPT/NTD 14502-7Gnhif EauvZM3872-38-35Y55:31:41Nurse NoteTXT1.2.840.035255.1.13.104.2.7.2 .189151|[id number] for patient [address] Ga[id number] NLVXGVFBTSDUGFGCFSWJLI4592-55-09M47: 31:411.2.840.107343.1.72.3.15|1.2.84 0.671065.1.13.104.2.7.2.727879_18535 88469 [facility]
[2024-06-14 13:13] LABS: Absolute Lymphocytes (CBC) 0.4 K/uL (0.7-4.9); Absolute Monocytes 0.5 K/uL (0.1-1.3); Absolute Neutrophil 8.1 K/uL (1.8-8.0); Basophils % 0.3 % (0-1.3); Eosinophils % 0.1 % (0-4.4); Hematocrit 33.5 % (36.0-45.0); Hemoglobin 11.3 g/dL (12.0-15.0); Lymphocytes % 4.3 % (15.3-44.8); MCH 30.1 pg (27.0-35.0); MCHC 33.6 g/dL (32.0-36.0); MCV 89.7 fL (80-100); Monocytes % 5.7 % (3.3-12.3); Neutrophils % 89.6 % (41.7-73.7); Platelets 212 thou/uL (152-406); RBC Red Blood Cell Count 3.74 M/uL (3.86-4.86); Red Cell Distribution Width 12.8 % (12.1-15.2)
[2024-06-14 13:26] LABS: SARS-CoV-2 Antigen CONTROL BLUE LINE VIS/BG OK; SARS-CoV-2 Antigen Rapid Res Negative (Negative)
[2024-06-14 13:28] LABS: Albumin 3.1 g/dL (3.4-5.0); Albumin/Globulin Ratio 0.8 (1.1-1.8); Anion Gap 11.4 mEq/L (5.0-15.0); Bilirubin Total 0.6 mg/dL (0.2-1.0); Globulin 3.7 g/dL (2.3-3.5); Potassium 3.4 mEq/L (3.5-5.1); Protein, Total 6.8 g/dL (6.4-8.2)
[2024-06-14 13:56] LABS: Specific Gravity 1.021 (1.005-1.030); Sqamous Epithelial <5 /HPF (None Seen); Urine Bacteria <20 /HPF (<20); Urine Bilirubin NEGATIVE (Negative); Urine Blood Trace (Negative); Urine Clarity Turbid (Clear); Urine Color Yellow (Yellow); Urine Culture Reflex Order NOT NEEDED; Urine Glucose 2+ (Negative); Urine Ketones NEGATIVE (Negative); Urine Micro Reflex YN NO BILL MICROSCOPIC; Urine Mucus Slight /HPF (None Seen); Urine Nitrite NEGATIVE (Negative); Urine Protein 2+ (Negative); Urine RBC <5 /HPF (None Seen); Urine Urobilinogen Normal (Normal); Urine WBC <5 /HPF (<5); Urine pH 5.5 (5.0-7.0)
[2024-06-14] MEDS ORDERED: NA CHLORIDE 0.9% 500 ML ONE (14:35)
--- NOTE | 2024-06-14 16:25 | RAD REPORT ---
EXAM DESCRIPTION: RADChest Single View06/14/2024 2:44 pm CLINICAL HISTORY: fatigue, myalgias COMPARISON: Chest Single View dated 10/27/2023; Chest Single View dated 03/26/2023; Chest Single View d ated 11/03/2020; Chest Single View dated 11/12/2019 TECHNIQUE: Portable AP view of the chest. FINDINGS: Decreased inspiratory effort limits evaluation. The lungs are clear apart from streaky rig ht mid to lower lobe opacities suggesting scarring or atelectasis. No pneumothorax or effusion. The cardiomediastinal contours are unremarkable. IMPRESSION: No acute cardiopulmonary process. Findings as above.
--- NOTE | 2024-06-14 16:41 | EDPHYS ---
Physician Documentation [facility] Name: Juhi Aguilar Age: 69 yrs Sex: Female : 1955 Arrival Date: 06/14/2024 Time: 12:10 Bed 17 Private MD: ED Physician Carlton Lee HPI: 06/14 12:37 This 69 yrs old Female presents to ER via Wheelchair with complaints of ms3 Weakness, Headache. 12:37 69-year-old female with past medical history of cataracts, osteoarthritis, GERD, ms3 myalgia, hyperlipidemia, hyperparathyroidism, hypertension presents to the emergency department for fatigue, headache, mild chills that began this morning. Patient's daughter states patient has not been around sick contacts. Patient's daughter notes patient was diagnosed with a UTI last week at [facility] emergency department and she has had an increase in urinary frequency since.. Historical: - Allergies: 12:18 Adhesives; me1 12:18 Codeine; me1 12:18 Iodine; me1 12:18 sirolimus; me1 - PMHx: 12:18 Cataracts; osteoarthritis; GERD; Myalgia; Hyperlipidemia; hyperparathyroidism; me1 Hypertension; kidney transplant; Diabetes mellitus; - PSHx: 12:18 kidney transplant; Right hip replacement; ORIF left hip repair; me1 - Immunization history:: Adult Immunizations up to date. - Infectious Disease History:: Denies. - Social history:: Smoking status: Patient denies any tobacco usage or history of. ROS: 12:37 Cardiovascular: Negative for chest pain, and palpitations. Respiratory: Negative for ms3 shortness of breath, cough, wheezing, and pleuritic chest pain, Abdomen/GI: Negative for abdominal pain, nausea, vomiting, diarrhea, and constipation, MS/Extremity: Negative for injury and deformity, Skin: Negative for injury, rash, and discoloration, 12:37 Constitutional: Positive for fatigue, Exam: 12:37 Constitutional: This is a well developed, well nourished patient who is awake, alert, ms3 and in no acute distress. Cardiovascular: Regular rate and rhythm with a normal S1 and S2. No gallops, murmurs, or rubs. Normal PMI, no JVD. No pulse deficits. Respiratory: Lungs have equal breath sounds bilaterally, clear to auscultation and percussion. No rales, rhonchi or wheezes noted. No increased work of breathing, no retractions or nasal flaring. Abdomen/GI: Soft, non-tender, with normal bowel sounds. No distension or tympany. No guarding or rebound. No evidence of tenderness throughout. Skin: Warm, dry with normal turgor. Normal color with no rashes, no lesions, and no evidence of cellulitis. Vital Signs: 12:15 BP 133 / 71; Pulse 88; Resp 16; Temp 98.2; Pulse Ox 98% ; Weight 67.13 kg; Height 4 ft. me1 11 in. ; Pain 8/10; 12:45 BP 132 / 69; Pulse 86; Resp 16; Pulse Ox 96% ; db 13:15 BP 128 / 71; Pulse 80; Resp 16; Pulse Ox 95% ; db 17:00 BP 123 / 68; Pulse 78; Resp 16; Pulse Ox 96% on R/A; db 12:15 Body Mass Index 29.89 (67.13 kg, 149.86 cm) me1 12:15 Pain Scale: Adult me1 MDM: 12:30 Patient medically screened. ms3 17:58 Data reviewed: vital signs, nurses notes, lab test result(s), radiologic studies, plain ms3 films, and as a result, I will discharge patient. I considered the following discharge prescriptions or medication management in the emergency department Medications were administered in the Emergency Department. See MAR. Independent interpretation of the following test(s) in the Emergency Department X-Ray: My interpretation is CXR image reviewed by me does not reveal pneumonia. Historians other than the Patient: Daughter/Son: Daughter. Counseling: I had a detailed discussion with the patient and/or guardian regarding the historical points, exam findings, and any diagnostic results supporting the discharge/admit diagnosis, radiology results, the need for outpatient follow up, to return to the emergency department if symptoms worsen or persist or if there are any questions or concerns that arise at home. Special discussion: I discussed with the patient/guardian in detail that at this point there is no indication for admission to the hospital. It is understood, however, that if the symptoms persist or worsen the patient needs to return immediately for re-evaluation. ED course: Discussed labs and CXR results with patient. Patient to follow up with PMD in 2-3 days. All questions answered. Return precautions discussed to include worsening symptoms, or any other concerns. Patient is alert, in nad, non-toxic appearing.. 06/14 12:30 Order name: CBC with Diff; Complete Time: 13:50 ms3 06/14 12:30 Order name: CMP; Complete Time: 13:50 ms3 06/14 12:30 Order name: Urinalysis W/Microscopic; Complete Time: 14:01 ms3 06/14 12:30 Order name: SARS RAPID; Complete Time: 13:50 ms3 06/14 14:11 Order name: CXR XRAY; Complete Time: 16:32 ms3 Administered Medications: 14:50 Drug: NS 0.9% IV 500 ml IV at bolus once Route: IV; Rate: bolus; Site: right db antecubital; 17:00 Follow up: Response: No adverse reaction; IV Status: Completed infusion; IV Intake: db 500ml Disposition Summary: 06/14/24 16:40 Discharge Ordered Notes: Location: Home ms3 Condition: Stable ms3 Diagnosis - Other malaise and fatigue ms3 Followup: ms3 - With: Private Physician - When: 2 - 3 days - Reason: Recheck today's complaints Discharge Instructions: - Discharge Summary Sheet ms3 - Fatigue ms3 Forms: - Medication Reconciliation Form ms3 - Antibiotic Education ms3 - Prescription Opioid Use ms3 - Patient Portal Instructions ms3 - Leadership Thank You Letter ms3 Signatures: Dispatcher [employer] Carlton Velasquez DO DO ms3 Anna Rodriguez RN RN db Nini Davila RN RN me1
--- NOTE | 2024-06-14 16:41 | ER ---
Nurse's Notes [facility] Name: Juhi Aguilar Age: 69 yrs Sex: Female : 1955 Arrival Date: 06/14/2024 Time: 12:10 Bed 17 Private MD: Diagnosis: Other malaise and fatigue Presentation: 06/14 12:15 Chief complaint: Patient's son or daughter states: starting this morning patient c/o me1 generalized weakness, COVARRUBIAS, chills, nausea and decreased appetite. Has been on Cefdinir 300 mg PO BID since 06/09/24 for UTI but is needing to void more frequently. Coronavirus screen: Vaccine status: Patient reports receiving the 2nd dose of the covid vaccine. Ebola Screen: No symptoms or risks identified at this time. 12:15 Method Of Arrival: Wheelchair me1 12:18 Initial Sepsis Screen: Does the patient meet any 2 criteria? No. Patient's initial me1 sepsis screen is negative. Risk Assessment: Do you want to hurt yourself or someone else? Patient reports no desire to harm self or others. Onset of symptoms was June 09, 2024. 12:18 Acuity: LUIGI 3 me1 17:37 Initial Sepsis Screen: Does the patient have a suspected source of infection? No. db Patient's initial sepsis screen is negative. Historical: - Allergies: 12:18 Adhesives; me1 12:18 Codeine; me1 12:18 Iodine; me1 12:18 sirolimus; me1 - PMHx: 12:18 Cataracts; osteoarthritis; GERD; Myalgia; Hyperlipidemia; hyperparathyroidism; me1 Hypertension; kidney transplant; Diabetes mellitus; - PSHx: 12:18 kidney transplant; Right hip replacement; ORIF left hip repair; me1 - Immunization history:: Adult Immunizations up to date. - Infectious Disease History:: Denies. - Social history:: Smoking status: Patient denies any tobacco usage or history of. Screenin:21 [facility] ED Fall Risk Assessment (Adult) History of falling in the last 3 months, db including since admission No falls in past 3 months (0 pts) Confusion or Disorientation No (0 pts) Intoxicated or Sedated No (0 pts) Impaired Gait Yes (1 pt) Mobility Assist Device Used Yes (1 pt) Altered Elimination No (0 pt) Score/Fall Risk Level 0 - 2 = Low Risk Oriented to surroundings, Maintained a safe environment. Abuse screen: Denies threats or abuse. Denies injuries from another. Nutritional screening: No deficits noted. Tuberculosis screening: No symptoms or risk factors identified. Assessment: 13:20 Reassessment: Patient appears in no apparent distress at this time. Patient and/or db family updated on plan of care and expected duration. Pain level reassessed. Patient is alert, oriented x 3, equal unlabored respirations, skin warm/dry/pink. General: Appears in no apparent distress. comfortable, Behavior is calm, cooperative. 16:23 Reassessment: Patient appears in no apparent distress at this time. Patient and/or db family updated on plan of care and expected duration. Pain level reassessed. Patient is alert, oriented x 3, equal unlabored respirations, skin warm/dry/pink. Neuro: Level of Consciousness is awake, alert, obeys commands, Oriented to person, place, time, situation. Respiratory: Airway is patent Respiratory effort is even, unlabored, Respiratory pattern is regular, symmetrical. 17:36 Reassessment: Patient appears in no apparent distress at this time. Patient and/or db family updated on plan of care and expected duration. Pain level reassessed. Patient is alert, oriented x 3, equal unlabored respirations, skin warm/dry/pink. Patient states feeling better. Patient states symptoms have improved. Vital Signs: 12:15 BP 133 / 71; Pulse 88; Resp 16; Temp 98.2; Pulse Ox 98% ; Weight 67.13 kg; Height 4 ft. me1 11 in. ; Pain 8/10; 12:45 BP 132 / 69; Pulse 86; Resp 16; Pulse Ox 96% ; db 13:15 BP 128 / 71; Pulse 80; Resp 16; Pulse Ox 95% ; db 17:00 BP 123 / 68; Pulse 78; Resp 16; Pulse Ox 96% on R/A; db 12:15 Body Mass Index 29.89 (67.13 kg, 149.86 cm) me1 12:15 Pain Scale: Adult mt1 ED Course: 12:12 Patient arrived in ED. mr 12:17 Carlton Lee DO is Attending Physician. ms3 12:18 Triage completed. me1 12:18 Arm band placed on right wrist. Patient placed in an exam room. me1 12:59 SARS RAPID Sent. bc6 12:59 CMP Sent. bc6 13:00 CBC with Diff Sent. bc6 13:00 Initial lab(s) drawn, by me, sent to lab. Inserted saline lock: 22 gauge in right bc6 antecubital area, using aseptic technique. Blood collected. 13:20 Anna Rodriguez, RN is Primary Nurse. db 13:49 Urine collected: clean catch specimen, clear. db 14:46 CXR XRAY In Process Unspecified. EDMS 16:23 Patient has correct armband on for positive identification. db 17:36 Provided Education on: DISCHARGE. Pulse ox on. NIBP on. Warm blanket given. Pillow db given. 17:36 No provider procedures requiring assistance completed. IV discontinued, intact, db bleeding controlled, No redness/swelling at site. Administered Medications: 14:50 Drug: NS 0.9% IV 500 ml IV at bolus once Route: IV; Rate: bolus; Site: right db antecubital; 17:00 Follow up: Response: No adverse reaction; IV Status: Completed infusion; IV Intake: db 500ml Medication: 17:36 VIS not applicable for this client. db Intake: 17:00 IV: 500ml; Total: 500ml. db Outcome: 16:40 Discharge ordered by MD. ms3 17:36 Discharged to home via wheelchair, with family, db 17:36 Condition: stable 17:36 Discharge instructions given to patient, family, Instructed on discharge instructions, follow up and referral plans. 17:38 Patient left the ED. db Signatures: Dispatcher [employer] EDMA GomezJenna, Reg Reg Carlton Perez, DO DO ms3 Anna Rodriguez, RN RN db Ramona Martinez 6 Nini Davila, RN RN me1 Corrections: (The following items were deleted from the chart) 16:23 16:21 [facility] ED Fall Risk Assessment (Adult) History of falling in the last 3 months, db including since admission No falls in past 3 months (0 pts) Confusion or Disorientation No (0 pts) Intoxicated or Sedated No (0 pts) Impaired Gait No (0 pts) Mobility Assist Device Used No (0 pt) Altered Elimination No (0 pt) Score/Fall Risk Level 0 - 2 = Low Risk Oriented to surroundings, Maintained a safe environment, db
[2024-06-16 17:39] VITALS: BP 123/68; TEMP 98.2; O2SAT 96
== END 2024-06-14 17:38 | disposition home or self-care (01) ==
LOC: ER 12:10
DX: R53.81 Other malaise (principal); R53.83 Other fatigue; Z11.52 Encounter for screening for COVID-19; E11.9 Type 2 diabetes mellitus without complications; I10 Essential (primary) hypertension; K21.9 Gastro-esophageal reflux disease without esophagitis; E78.5 Hyperlipidemia, unspecified; Z94.0 Kidney transplant status; Z88.5 Allergy status to narcotic agent; Z88.8 Allergy status to other drugs, medicaments and biological substances; Z91.09 Other allergy status, other than to drugs and biological substances
CPT/HCPCS: 96361; 85025; 81001; 36415; 80053; 71045; 96360; 99284; 87811; J7040

== ENCOUNTER 2025-08-30 02:35 | Emergency (ER) | payer OTHER ==
--- OUTSIDE RECORDS SUMMARY | 2025-08-30 03:26 | XMS REPORT | Continuity of Care Document ---
Author Name Unknown Address [address] [facility] [place] [address] [facility] Address [address] [facility] [facility] [place] [address] Care Team Providers Care Facilities Engineer Name Role Phone Jada Fraire Primary Care Physician [phone] JUSTIN NAVA Attending Clinician UnavailJADA Bonds Attending Clinician Unavailable PINA DOTY Attending Clinician UnavailFARHAN Castro Attending Clinician UnavailFARHAN Pollard Attending Clinician UnavailJada Jackman Attending Clinician [phone] Nayely RAMOS, Gwen Lira Attending Clinician + [phone] 3, [facility] Attending Clinician Unavailable Justin Nava MD Attending Clinician [phone] UNKNOWN, ATTENDING Attending Clinician Unavailab Severo SCHROEDER, Suha Prado Attending Clinician Unavailab Karo SCHROEDER, Booker Harper Attending Clinician Unavail able Lab, Ang - Db Attending Clinician Unavailable Farhan Liang DO Attending Clinician +[phone] Doctor Unassigned, [place] Attending Clinician Shanique Myers RN, Carmina Attending Clinician Unavailable GIANNI, NIELS ADAL Attending Clinician Unavailab tamir Buitrago RN, Roxanna M Attending Clinician Unavailabl scottie Price MD, Aryan Aguila Attending Clinician + [phone] Shara Schmitz MD Attending Clinician + SHARA SCHMIZT Attending Clinician Unavailable MOIZ SUE Attending Clinician Unavailab tamir Mcnally MD, Niels A Attending Clinician [phone], [facility] Infusion Room Attending Clinician Unavailable Jacqueline Irizarry MD Attending Clinician [phone] JACQUELINE IRIZARRY Attending Clinician Unavailable LANG CAMACHO Attending Clinician Unavaila LANG Maravilla Attending Clinician Unavailmingo Camacho MD, Lang Hager Attending Clinician +[phone] Eduard Rubio MD Attending Clinician [phone] Enedelia Peoples Attending Clinician Unavailable Keith Zhang Attending Clinician Unavailable Brenda Richter MD Attending Clinician + [phone] BRENDA RICHTER Attending Clinician Unavailabl scottie Medel MD, Aurelio Attending Clinician +[phone] WES LOZANO Attending Clinician Unavaila WES Street Attending Clinician Unavaila dank Mcnally MD, Niels Galeas Attending Clinician +[phone] LUL GARCIA Attending Clinician Unavail able Wes Lozano MD Attending Clinician [phone] Lab, [facility] Attending Clinician Unavailable GWEN BHAKTA Attending Clinician Unava ilable Lul Garcia OD Attending Clinician [phone] Kathleen Martinez Attending Clinician + [phone] Luis Alberto Riggins MA Attending Clinician Un available KATHLEEN MARIE Attending Clinician Unavailable HOLDEN LAM Attending Clinician Unavailable HOLDEN LAM Attending Clinician Unavailable Holden Mariscal Attending Clinician +[phone] LALA MCCLENDON Attending Clinician Unavailable Lala Coleman Attending Clinician + [phone] Unknown, Attending Attending Clinician Unavailab tmair RODRIGUEZ Jada Attending Clinician [phone] Nayely RAMOS, Gwen Thomson N Attending Clinician +[phone] Brandy RAMOS, Justin Mcgill Attending Clinician +- [phone] Keagan RAMOS, Pina Alexandra Attending Clinician +[phone] LA[facility] DE PAZ Attending Clinician Unavailable LAST DE PAZ Attending Clinician Unavailable Lab, Ang - Db Attending Clinician Unavailable David RAMOS, Aryan Aguila Attending Clinician [phone] Farhan Liang DO Attending Clinician + [phone] Gianfranco RAMOS, Aurelio Attending Clinician +[phone] JESSY LEMON Attending Clinician Amira vailadank Kendrick MA, February A Attending Clinician Unavailab Shara Zuniga MD Attending Clinician +[phone] Nurse, [facility] Pob Amb Infusion Attending Clinician Unavailable 2, [facility] Attending Clinician Unavailable Brenda Richter MD Attending Clinician +[phone] Doctor Unassigned, [place] Attending Clinician U navailable Unknown, Attending Attending Clinician Unavailab tamir Mcnally MD, Niels Galeas Attending Clinician + [phone] BEBA BURRELL Attending Clinician Unavail Beba Lam MD Attending Clinician [phone] ANEL GOLDEN Attending Clinician Unavailable Anel Arambula Attending Clinician [phone] ARYAN PRICE Attending Clinician Unavaila ble , [facility] Infusion Nurse Attending Clinician Lul Cheema OD Attending Clinician [phone] Ynes Tyler LVN Attending Clinician Yee Franklin MA Attending Clinician Unavailable AURELIO MEDEL Attending Clinician Unavailable Amarilis Gallagher LVN Attending Clinician AYANNA Ngo Attending Clinician Unavailable Amita RAMOS, Ayanna Attending Clinician +[phone] BEV Attending Clinician Unavailable Viktor RAMOS, Wondiful A Attending Clinician [phone] Testing, [facility] Pulmonary Function Attending Clinic dov Unavailable NOREEN ANDUJAR Attending Clinician Unavailable DODIE HOANG Attending Clinician Unavailmingo Kessler RN, Coral Harper Attending Clinician Unavail able SANJAY GIBBONS Attending Clinician Unaoni Hodge MD, Brandon Aguila Attending Clinician + [phone] Arie RAMOS, Sanjay Cornell Attending Clinician +[phone] Samy RAMOS, Shaunna Attending Clinician +[phone] BRENDA LE Attending Clinician Unavailable Mimi RAMOS, Brenda Fraser Attending Clinician +[phone] Nurse, Ang Dereck Attending Clinician Unavailable BRENDA RABAGO Attending Clinician Veto Rabago MD, Brenda Dawn Attending Clinician + [phone] Eduard Rubio MD Attending Clinician +[phone] Anuel KRISHNAC, David Attending Clinician [phone] Lab, [facility] Pob I Attending Clinician Unavailab le Pcp-Lab Attending Clinician Unavailable Costa RAMOS, Vicenta Prado Attending Clinician [phone] EDUARD RUBIO Attending Clinician Unavailable Marino RAMOS, Addy Olea Attending Clinician +[phone] JONATHAN LOWE Attending Clinician Unavailable Nurse, [facility] Pob I Attending Clinician Unavail able DAVID VOGEL Attending Clinician Unavailable LISETH LUNSFORD Attending Clinician Unavailable Aviva Fu Attending Clinician +[phone] LYNN LEE Attending Clinician Unavailable Wm RAMOS, Niels Sandoval Attending Clinician [phone] Lynn Lee MD Attending Clinician +[phone] Iveth Art MD Attending Clinician [phone] IVETH ART Attending Clinician Unavaila Jerald Beard Attending Clinician Veto davies Nurse, Transplant Attending Clinician Unavailconstantine Jimenez MD, Nathan Attending Clinician +[phone] Garrett RAMOS, Pelon Prado Attending Clinician [phone] Tiffanie Espana Attending Clinician Jacqueline Irizarry MD Attending Clinician Vtc-Lab Attending Clinician Unavailable Pob, [facility] Main Attending Clinician UnavailDICK Riddle Attending Clinician Unavailable FARHAN LIANG Admitting Clinician Unavailab BRENDA Kaufman Admitting Clinician UnavailLAST Caceres Admitting Clinician Unavailable JADA BILL Admitting Clinician Unavailable BEV Admitting Clinician Unavailable JUSTIN NAVA Admitting Clinician UnavailSHAUNNA Puga Admitting Clinician Unavailable Shaunna Pablo MD Admitting Clinician [phone] KEN MORELOS Admitting Clinician Unavailab BRENDA Villa Admitting Clinician Unavailable Payers Payer Name Policy Type Policy Number Effective Date Expirati on Date Source [employer] MED[employer] ADVANTAGE HMO/POS [id number] 2021 00:00:00 Problems Condition Name Condition Details Condition Category Status Onset Date Resolution Date Last Treatment Date Treating Clinician Comments Source Age related osteoporos is Age related osteoporos is Disease Active 8-19 00:00: 00 [facility] Low grade fever Low grade fever Disease Active 7-05 00:00: 00 [facility] Elevated glucose Elevated glucose Disease Active 7-05 00:00: 00 [facility] Right hip pain Right hip pain Disease Active 4-01 00:00: 00 [facility] Right hip pain Right hip pain Disease Active 4-01 00:00: 00 [facility] Recurrent acute suppurativ e otitis media without spontaneou s rupture of left tympanic membrane Recurrent acute suppurativ e otitis media without spontaneou s rupture of left tympanic membrane Disease Active 5-12 00:00: 00 [facility] Subacute cough Subacute cough Disease Active 3-07 00:00: 00 [facility] SOB (shortness of breath) SOB (shortness of breath) Disease Active 3-07 00:00: 00 [facility] Subacute cough Subacute cough Disease Active 3-07 00:00: 00 [facility] Oral thrush Oral thrush Disease Active 8-26 00:00: 00 [facility] Chest pain Chest pain Disease Active 3-05 00:00: 00 [facility] 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 Added automatic ally from request for surgery [id number] [facility] Calculus of bile duct without cholecysti tis and without obstructio n Calculus of bile duct without cholecysti tis and without obstructio n Disease Active 12-19 00:00: 00 Overview: Formattin g of this note might be different from the original. Added automatic ally from request for surgery [id number] [facility] Dysuria Dysuria Disease Active 2018-11 2- 00:00: 00 [facility] UTI (urinary tract infection) UTI (urinary tract infection) Disease Active 2018-11 2-22 00:00: 00 [facility] Nausea & vomiting Nausea & vomiting Disease Active 5-23 00:00: 00 [facility] Urinary tract infection Urinary tract infection Disease Active 3-08 00:00: 00 [facility] Closed right hip fracture Closed right hip fracture Disease Active 2017-11 0-26 00:00: 00 [facility] Closed fracture of right hip, initial encounter Closed fracture of right hip, initial encounter Disease Active 2017-11 0-25 00:00: 00 Overview: Formattin g of this note might be different from the original. Added automatic ally from request for surgery [id number] [facility] Situationa l mixed anxiety and depressive disorder Situationa l mixed anxiety and depressive disorder Disease Active 2018-0 7-30 00:00: 00 [facility] Fracture of femoral neck, left, closed Fracture of femoral neck, left, closed Disease Active 06-04 00:00: 00 [facility] Obesity (BMI 30-39.9) Obesity (BMI 30-39.9) Disease Active 06-04 00:00: 00 [facility] Closed fracture of neck of femur Closed fracture of neck of femur Disease Active 06-03 00:00: 00 Overview: Formattin g of this note might be different from the original. Bilateral [facility] Osteoporos is, unspecifie d osteoporos is type, unspecifie d pathologic al fracture presence Osteoporos is, unspecifie d osteoporos is type, unspecifie d pathologic al fracture presence Disease Active 05-28 00:00: 00 [facility] binder coverstitch (current) use of systemic steroids FPC (current) use of systemic steroids Disease Active 05-11 00:00: 00 [facility] Immunizati on counseling Immunizati on counseling Disease Active 04-14 00:00: 00 [facility] PMR (polymyalg ia rheumatica ) PMR (polymyalg ia rheumatica ) Disease Active 04-14 00:00: 00 [facility] Low back pain without sciatica, unspecifie d back pain laterality , unspecifie d chronicity Low back pain without sciatica, unspecifie d back pain laterality , unspecifie d chronicity Disease Active 04-14 00:00: 00 [facility] Renal cyst Renal cyst Disease Active 03-22 00:00: 00 Overview: Formattin g of this note might be different from the original. Two cysts of her transplan nader kidney per US 03/11/2018 [facility] Muscle weakness Muscle weakness Disease Active 02-15 00:00: 00 [facility] Myalgia Myalgia Disease Active 02-15 00:00: 00 [facility] Immunosupp ressive management encounter following kidney transplant Immunosupp ressive management encounter following kidney transplant Disease Active 2016-11 00:00: 00 [facility] Early cataracts, bilateral Early cataracts, bilateral Disease Active 06-19 00:00: 00 [facility] Dry eye syndrome, bilateral Dry eye syndrome, bilateral Disease Active 06-19 00:00: 00 [facility] Refractive error Refractive error Disease Active 06-19 00:00: 00 [facility] Positive DUDLEY (antinucle ar antibody) 1:80 Positive DUDLEY (antinucle ar antibody) 1:80 Disease Active 01-08 00:00: 00 [facility] Atypical rash Atypical rash Disease Active 01-08 00:00: 00 [facility] Screening for colon cancer Screening for colon cancer Disease Active 2015-11 00:00: 00 [facility] Need for Tdap vaccinatio n Need for Tdap vaccinatio n Disease Active 2015-11 00:00: 00 [facility] Essential hypertensi on Essential hypertensi on Disease Active 05-16 00:00: 00 Overview: Formattin g of this note might be different from the original. 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 ICD10 Diagnosis Term Bead Builder Utility [facility] Kidney replaced by transplant Kidney replaced by transplant Disease Active 2010-11 00:00: 00 [facility] Renal transplant Renal transplant Disease Active 05-22 00:00: 00 [facility] Cholelithi asis Cholelithi asis Disease Active 03-07 00:00: 00 [facility] GERD (gastroeso phageal reflux disease) GERD (gastroeso phageal reflux disease) Disease Active 03-07 00:00: 00 [facility] History of end stage renal disease History of end stage renal disease Disease Active 04-16 00:00: 00 [facility] Generalize d osteoarthr osis, unspecifie d site Generalize d osteoarthr osis, unspecifie d site Disease Active 12-01 00:00: 00 [facility] Hyperparat hyroidism Hyperparat hyroidism Disease Active 12-01 00:00: 00 [facility] Local infection of wound Local infection of wound Disease Resolve d 05-16 00:00: 00 2016-07-08 00:00:00 2016-07-08 09:27:38 [facility] Unspecifie d hypertensi ve kidney disease with chronic kidney disease stage I through stage IV, or unspecifie d Unspecifie d hypertensi ve kidney disease with chronic kidney disease stage I through stage IV, or unspecifie d Disease Resolve d 05-02 00:00: 00 2016-07-08 00:00:00 2016-07-08 09:52:56 [facility] Other reasons for seeking consultati on Other reasons for seeking consultati on Disease Resolve d 06-16 00:00: 00 2010-04-11 00:00:00 2010-04-11 10:27:30 [facility] Renal dialysis status Renal dialysis status Disease Resolve d 06-16 00:00: 00 2010-04-11 00:00:00 2010-04-11 10:28:10 [facility] Osteoporos is Osteoporos is Disease Resolve d 06-16 00:00: 00 2010-04-11 00:00:00 2022-06-08 00:13:42 [facility] Essential hypertensi on Essential hypertensi on Disease Resolve d 04-16 00:00: 00 2010-04-11 00:00:00 2022-06-08 00:10:59 [facility] Renal failure Renal failure Disease Resolve d 12-21 00:00: 00 2010-04-11 00:00:00 2022-06-08 00:10:15 [facility] Hypercalce kary Hypercalce kary Disease Resolve d 2005-11 00:00: 00 2010-04-11 00:00:00 2010-04-11 10:27:48 [facility] Hypoparath yroidism Hypoparath yroidism Disease Resolve d 12-01 00:00: 00 2006-12-01 00:00:00 2006-12-01 15:34:54 [facility] Allergies, Adverse Reactions, Alerts Allergy Name Allergy Type Status Severity Reaction(s) Onset Date Inactive Date Treating Clinician Comments Source Iodine And Iodide Containi ng Products Propensi ty to adverse reaction s Active Nausea and/or Vomiting 04-22 00:00: 00 [facility] IODINE AND IODIDE CONTAINI NG PRODUCTS Drug Class Active N/V 04-22 00:00: 00 [facility] Sirolimu s (Bulk) Propensi ty to adverse reaction s Active Rash 02-03 00:00: 00 [facility] SIROLIMU S (BULK) DRUG Active Rash 02-03 00:00: 00 [facility] Adhesive Tape-[place] icones Propensi ty to adverse reaction s Active Rash 01-28 00:00: 00 [facility] Codeine Propensi ty to adverse reaction s Active Nausea and/or Vomiting 01-28 00:00: 00 [facility] ADHESIVE TAPE-SHERIDAN ICONES DRUG Active High Rash 01-28 00:00: 00 [facility] CODEINE DRUG INGREDI Active High N/V 01-28 00:00: 00 [facility] Family History Family Member Diagnosis Comments Start Date Stop Date Sourc e Natural brother Non-contributory [facility] Natural father Non-contributory [facility] Natural [facility] Social History Social Habit Start Date Stop Date Quantity Comments Source Gender identity [facility] Sexual orientation U niversity [facility] ASSERTION Not Univers ity [facility] History of Occupation [facility] Alcoholic beverage intake 2025-05-22 00:00:00 2025-05-22 00:00:00 0 /d [facility] History of Social function 2024-10-05 00:00:00 2024-10-05 00:00:00 [facility] Alcohol intake 2024-02-22 00:00:00 2024-02-22 00:00:00 0 /d [facility] Exposure to SARS-CoV-2 (event) 2023-03-24 00:00:00 2023-04-03 07:41:00 Not sure [facility] History SDOH Social Connections Phone 2023-04-03 00:00:00 2023-04-03 00:00:00 4 [facility] History SDOH Social Connections Get Together 2023-04-03 00:00:00 2023-04-03 00:00:00 3 [facility] History SDOH Social Connections Hinduism 2023-04-03 00:00:00 2023-04-03 00:00:00 2 [facility] History SDOH Social Connections Membership 2023-04-03 00:00:00 2023-04-03 00:00:00 2 [facility] History SDOH Social Connections Meetings 2023-04-03 00:00:00 2023-04-03 00:00:00 1 [facility] History SDOH Social Connections Living 2023-04-03 00:00:00 2023-04-03 00:00:00 3 [facility] History SDOH Physical Activity DPW 2023-04-03 00:00:00 2023-04-03 00:00:00 0 [facility] History SDOH Physical Activity MPS 2023-04-03 00:00:00 2023-04-03 00:00:00 1 [facility] History SDOH Stress 2023-04-03 00:00:00 2023-04-03 00:00:00 3 [facility] History SDOH Financial 2023-04-03 00:00:00 2023-04-03 00:00:00 5 [facility] History SDOH Food Worry 2023-04-03 00:00:00 2023-04-03 00:00:00 1 [facility] History SDOH Food Scarcity 2023-04-03 00:00:00 2023-04-03 00:00:00 1 [facility] History SDOH Transport Med 2023-04-03 00:00:00 2023-04-03 00:00:00 2 [facility] History SDOH Transport Non-Med 2023-04-03 00:00:00 2023-04-03 00:00:00 2 [facility] History SDOH Housing Unable to Pay 2023-04-03 00:00:00 2023-04-03 00:00:00 2 [facility] History SDOH Housing Places Lived 2023-04-03 00:00:00 2023-04-03 00:00:00 1 [facility] History SDOH Housing Homeless Last Year 2023-04-03 00:00:00 2023-04-03 00:00:00 2 [facility] History SDOH Alcohol Frequency 2023-04-03 00:00:00 2023-04-03 00:00:00 1 [facility] History SDOH Alcohol Std Drinks 2023-04-03 00:00:00 2023-04-03 00:00:00 0 [facility] History SDOH Alcohol Binge 2023-04-03 00:00:00 2023-04-03 00:00:00 1 [facility] Tobacco use and exposure 2022-09-16 00:00:00 2022-09-16 00:00:00 Smokeless tobacco non-user [facility] Alcohol Comment 2010-04-02 00:00:00 2010-04-02 00:00:00 never [facility] Sex assigned at 1955 00:00:00 1955 00:00:00 [facility] Smoking Status Start Date Stop Date Source Never smoked tobacco [facility] Medications Ordered Medication Name Filled Medication Name Start Date Stop Date Current Medication? Ordering Clinician Indication Dosage Frequency Signature (SIG) Comments Components Source ROSUVASTATI N 5 mg tablet 2024-11 0 00:00: 00 Yes [id number] 5mg TAKE 1 TABLET BY MOUTH AT BEDTIME [facility] WESTAB PLUS 27 mg iron- 1 mg tablet 08-21 00:00: 00 Yes [id number] 1{tbl} TAKE 1 TABLET BY MOUTH EVERY MORNING [facility] lancets (ONETOUCH DELICA PLUS LANCET) 33 gauge [facility] 08-11 00:00: 00 Yes [id number] Use as directed [facility] Blood-Gluco se Meter (ACCU-CHEK GUIDE GLUCOSE METER) [facility] 08-07 00:00: 00 Yes [id number] Use as directed [facility] blood sugar diagnostic (ACCU-CHEK GUIDE TEST STRIPS) strip 08-07 00:00: 00 Yes [id number] Use as directed [facility] denosumab (PROLIA) injection 60 mg 08-02 18:30: 00 08-02 18:20 :00 No [id number] 60mg 60 mg, Subcutaneo us, ONCE, 1 dose, On Thu08/02/25 at 1330, Routine, 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 approving non-formul diallo medication : JUSTIN NAVA, Reason for non-formul diallo use: SPECIFIC INDICATION FOR NONFORMULA RY PRODUCT [facility] glipiZIDE XL 2.5 mg 24 hr tablet 07-21 00:00: 00 Yes [id number] 2.5mg TAKE 1 TABLET BY MOUTH DAILY WITH BREAKFAST [facility] OMEPRAZOLE 20 mg capsule 07-07 00:00: 00 Yes [id number] 20mg TAKE 1 CAPSULE BY MOUTH DAILY [facility] MYFORTIC 180 mg tablet 07-06 00:00: 00 Yes [id number] TAKE 3 TABLETS BY MOUTH EVERY 12 HOURS [facility] mycophenola te sodium (MYFORTIC) 180 mg EC tablet 07-06 00:00: 00 07-06 00:00 :00 No [id number] TAKE 3 TABLETS BY MOUTH EVERY 12 HOURS [facility] MONTELUKAST 10 mg tablet 06-13 00:00: 00 Yes [id number] 10mg TAKE 1 TABLET BY MOUTH EVERY EVENING [facility] glipiZIDE 10 mg tablet 05-29 00:00: 00 Yes [id number] 10mg Take 1 tablet by mouth 2 times daily before breakfast and dinner. [facility] mycophenola te sodium (MYFORTIC) 180 mg EC tablet 05-24 00:00: 00 07-06 00:00 :00 No [id number] TAKE 3 TABLETS BY MOUTH EVERY 12 HOURS [facility] umeclidiniu m (INCRUSE ELLIPTA) 62.5 mcg/actuati on DsDv 05-22 00:00: 00 Yes [id number] 1{puff} Inhale 1 Puff daily. [facility] albuterol sulfate HFA 90 mcg/actuati on aerosol inhaler 05-22 00:00: 00 Yes 2{puff} Inhale 2 Puffs every 6 hours as needed for Wheezing or Shortness of Breath. [facility] PREDNISONE 5 mg tablet 05-18 00:00: 00 Yes [id number] 5mg TAKE 1 TABLET BY MOUTH DAILY [facility] WESTAB PLUS 27 mg iron- 1 mg tablet 05-18 00:00: 00 08-21 00:00 :00 No [id number] 1{tbl} TAKE 1 TABLET BY MOUTH EVERY MORNING [facility] albuterol sulfate HFA 90 mcg/actuati on aerosol inhaler 04-28 00:00: 00 05-22 00:00 :00 No [id number] 2{puff} INHALE 2 PUFFS BY MOUTH EVERY 6 HOURS NEEDED FOR WHEEZING OR SHORTNESS OF BREATH [facility] CYCLOSPORIN E 25 mg capsule 04-24 00:00: 00 Yes [id number] TAKE ONE CAPSULE BY MOUTH EVERY 12 HOURS [facility] glipiZIDE XL 2.5 mg 24 hr tablet 04-11 00:00: 00 07-21 00:00 :00 No [id number] 2.5mg TAKE 1 TABLET BY MOUTH DAILY WITH BREAKFAST [facility] OMEPRAZOLE 20 mg capsule 5-17 00:00: 00 07-07 00:00 :00 No [id number] 20mg TAKE 1 CAPSULE BY MOUTH DAILY [facility] irbesartan 150 mg tablet 5-13 00:00: 00 Yes [id number] 150mg Take 1 tablet by mouth at bedtime. [facility] albuterol sulfate HFA 90 mcg/actuati on aerosol inhaler 03-22 00:00: 00 04-28 00:00 :00 No [id number] 2{puff} INHALE 2 PUFFS BY MOUTH EVERY 6 HOURS NEEDED FOR WHEEZING OR SHORTNESS OF BREATH [facility] furosemide 20 mg tablet 28 00:00: 00 Yes [id number] TAKE 1 TABLET BY MOUTH TWICE DAILY NEEDED FOR SWELLING [facility] calcitrioL 0.25 mcg capsule 18 00:00: 00 Yes [id number] .25ug Take 1 capsule by mouth daily. [facility] Insulin Glargine (LANTUS SOLOSTAR U-100 INSULIN) 100 unit/mL (3 mL) injection 03-10 00:00: 00 Yes [id number] 9109 12U inject 12 Units under the skin daily. [facility] Insulin [place], Disposable, (BD INSULIN PEN NEEDLE UF) 31 gauge x 5/16" Ndle 18 00:00: 00 Yes [id number] Use to check BG DAILY [facility] MONTELUKAST 10 mg tablet 4-14 00:00: 00 06-13 00:00 :00 No [id number] 10mg TAKE 1 TABLET BY MOUTH EVERY EVENING [facility] albuterol sulfate HFA 90 mcg/actuati on aerosol inhaler 4-02 00:00: 00 03-22 00:00 :00 No [id number] 2{puff} INHALE 2 PUFFS BY MOUTH EVERY 6 HOURS NEEDED FOR WHEEZING OR SHORTNESS OF BREATH [facility] PNV,calcium 72-iron-fol ic acid (WESTAB PLUS) 27 mg iron- 1 mg tablet 02-20 00:00: 00 05-18 00:00 :00 No [id number] 1{tbl} Take 1 tablet by mouth every morning. [facility] blood sugar diagnostic (ONETOUCH ULTRA TEST) strip 02-06 00:00: 00 Yes [id number] USE TO CHECK FASTING BLOOD SUGAR DAILY DIRECTED [facility] ALBUTEROL 90 mcg/actuati on inhaler 3- 00:00: 00 02-22 00:00 :00 No [id number] 2{puff} INHALE 2 PUFFS BY MOUTH EVERY 6 HOURS NEEDED FOR WHEEZING OR SHORTNESS OF BREATH [facility] denosumab (PROLIA) injection 60 mg 01-13 19:30: 00 01-13 19:19 :00 No [id number] 60mg 60 mg, Subcutaneo us, ONCE, 1 dose, On Thu01/13/25 at 1330, Routine, 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 approving Restricted medication : JUSTIN NAVA [facility] carvediloL 25 mg tablet 2- 00:00: 00 Yes 25mg Take 1 tablet by mouth 2 (two) times daily with meals. [facility] ALBUTEROL 90 mcg/actuati on inhaler 2- 00:00: 00 Yes [id number] 2{puff} INHALE 2 PUFFS BY MOUTH EVERY 6 HOURS NEEDED FOR WHEEZING OR SHORTNESS OF BREATH [facility] OMEPRAZOLE 20 mg capsule 2-12 00:00: 00 04-08 00:00 :00 No [id number] 20mg TAKE 1 CAPSULE BY MOUTH DAILY [facility] famotidine 20 mg tablet - 00:00: 00 Yes [id number] 20mg TAKE 1 TABLET BY MOUTH TWICE DAILY [facility] ROSUVASTATI N 5 mg tablet 12-22 00:00: 00 08-25 00:00 :00 No [id number] 5mg TAKE 1 TABLET BY MOUTH AT BEDTIME [facility] FAMOTIDINE 20 mg tablet 30 00:00: 00 12-23 00:00 :00 No [id number] 20mg TAKE 1 TABLET BY MOUTH TWICE DAILY [facility] glipiZIDE XL 2.5 mg 24 hr tablet 12-19 00:00: 00 04-11 00:00 :00 No [id number] 2.5mg TAKE 1 TABLET BY MOUTH DAILY WITH BREAKFAST [facility] FUROSEMIDE 20 mg tablet 12-19 00:00: 00 03-20 00:00 :00 No [id number] TAKE 1 TABLET BY MOUTH TWICE DAILY NEEDED FOR SWELLING [facility] CARVEDILOL 25 mg tablet 12-11 00:00: 00 01-04 00:00 :00 No 25mg TAKE 1 TABLET BY MOUTH TWICE DAILY WITH MEALS [facility] ALBUTEROL 90 mcg/actuati on inhaler 12-06 00:00: 00 01-04 00:00 :00 No [id number] 2{puff} INHALE 2 PUFFS BY MOUTH EVERY 6 HOURS NEEDED FOR WHEEZING OR SHORTNESS OF BREATH [facility] MONTELUKAST 10 mg tablet 12-01 00:00: 00 03-06 00:00 :00 No [id number] 10mg TAKE 1 TABLET BY MOUTH EVERY EVENING [facility] Insulin [place], Disposable, (BD INSULIN PEN NEEDLE UF) 31 gauge x 5/16" Ndle 2023-11 00:00: 00 03-10 00:00 :00 No [id number] Use to check BG DAILY [facility] OMEPRAZOLE 20 mg capsule 2023-11 00:00: 00 01-04 00:00 :00 No [id number] 20mg TAKE 1 CAPSULE BY MOUTH DAILY [facility] tc 99m-medrona te (DRAXIMAGE MDP-25) injection 22.4 millicurie 2023-11 16:00: 00 09-28 16:00 :00 No [id number] 22.4mCi 22.4 millicurie , Intravenou s, ONCE, 1 dose, On Thu09/28/24 at 1000, Routine [facility] GLIPIZIDE 10 mg tablet 2023-11 00:00: 00 05-25 00:00 :00 No [id number] TAKE 1 TABLET BY MOUTH TWICE DAILY BEFORE BREAKFAST AND DINNER [facility] WESTAB PLUS 27 mg iron- 1 mg tablet 2023-11 00:00: 00 02-20 00:00 :00 No [id number] 1{tbl} TAKE 1 TABLET BY MOUTH EVERY MORNING [facility] FAMOTIDINE 20 mg tablet 2023-11 00:00: 00 12-22 00:00 :00 No [id number] 20mg TAKE 1 TABLET BY MOUTH TWICE DAILY [facility] calcitrioL 0.25 mcg capsule 2023-11 00:00: 00 03-10 00:00 :00 No [id number] .25ug Take 1 capsule by mouth daily. [facility] ALBUTEROL 90 mcg/actuati on inhaler 2023-11 00:00: 00 12-06 00:00 :00 No [id number] 2{puff} INHALE 2 PUFFS BY MOUTH EVERY 6 HOURS NEEDED FOR WHEEZING OR SHORTNESS OF BREATH [facility] Insulin Glargine (LANTUS SOLOSTAR U-100 INSULIN) 100 unit/mL (3 mL) injection 2023-11 00:00: 00 03-10 00:00 :00 No [id number] 9109 12U inject 12 Units under the skin daily. [facility] RESTASIS 0.05 % ophthalmic drops 2023-11 00:00: 00 Yes [id number] INSTILL 1 DROP IN BOTH EYES EVERY 12 HOURS [facility] INCRUSE ELLIPTA 62.5 mcg/actuati on DsDv 2023-11 0 00:00: 00 05-22 00:00 :00 No [id number] 1{puff} INHALE 1 PUFF BY MOUTH DAILY [facility] GLIPIZIDE XL 2.5 mg 24 hr tablet 2023-11 0-04 00:00: 00 12-19 00:00 :00 No [id number] 2.5mg TAKE 1 TABLET BY MOUTH DAILY WITH BREAKFAST. [facility] montelukast 10 mg tablet 2023-11 0-04 00:00: 00 12-01 00:00 :00 No [id number] 10mg Take 1 tablet by mouth every evening. [facility] cycloSPORIN E (RESTASIS MULTIDOSE) 0.05 % Drop 2023-11 0-04 00:00: 00 09-26 05:59 :00 No 1[drp] Place 1 Drop in both eyes 2 (two) times daily for 30 days. [facility] ONETOUCH ULTRA2 METER Misc 2023-11 0- 00:00: 00 Yes [id number] USE TO CHECK BLOOD GLUCOSE [facility] ONETOUCH ULTRA2 METER Misc 2023-11 0- 00:00: 00 Yes [id number] USE TO CHECK BLOOD GLUCOSE [facility] ALBUTEROL 90 mcg/actuati on inhaler 9- 00:00: 00 09-14 00:00 :00 No [id number] 2{puff} INHALE 2 PUFFS BY MOUTH EVERY 6 HOURS NEEDED FOR WHEEZING OR SHORTNESS OF BREATH [facility] ALBUTEROL 90 mcg/actuati on inhaler 8-29 00:00: 00 08-18 00:00 :00 No [id number] 2{puff} INHALE 2 PUFFS BY MOUTH EVERY 6 HOURS NEEDED FOR WHEEZING OR SHORTNESS OF BREATH [facility] predniSONE 5 mg tablet 8 00:00: 00 05-18 00:00 :00 No [id number] 5mg Take 1 tablet by mouth daily. 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 [facility] acetaminoph en (TYLENOL ARTHRITIS PAIN) 650 mg CR tablet 07-03 00:00: 00 07-11 04:59 :00 No [id number] 650mg Take 1 tablet by mouth every 8 (eight) hours as needed for Pain for up to 7 days. [facility] OMEPRAZOLE 20 mg capsule 07-01 00:00: 00 10-03 00:00 :00 No [id number] 20mg TAKE 1 CAPSULE BY MOUTH DAILY [facility] FAMOTIDINE 20 mg tablet 07-01 00:00: 09-19 00:00 :00 No [id number] 20mg TAKE 1 TABLET BY MOUTH TWICE DAILY [facility] ciprofloxac in HCl (CIPRO) 500 mg tablet 06-30 00:00: 00 07-04 00:00 :00 No [id number] 500mg Take 1 tablet by mouth every 12 (twelve) hours for 7 days. [facility] ALBUTEROL 90 mcg/actuati on inhaler 06-24 00:00: 00 07-21 00:00 :00 No [id number] 2{puff} INHALE 2 PUFFS BY MOUTH EVERY 6 HOURS NEEDED FOR WHEEZING OR SHORTNESS OF BREATH [facility] PNV,calcium 72-iron-fol ic acid (WESTAB PLUS) 27 mg iron- 1 mg tablet 06-23 00:00: 00 09-26 00:00 :00 No [id number] 1{tbl} Take 1 tablet by mouth every morning. [facility] ONETOUCH DELICA PLUS LANCET 33 gauge Misc 06-14 00:00: 00 Yes [id number] CHECK FASTING BLOOD SUGAR DAILY [facility] ONETOUCH DELICA PLUS LANCET 33 gauge Misc 06-14 00:00: 00 08-11 00:00 :00 No [id number] CHECK FASTING BLOOD SUGAR DAILY [facility] MYFORTIC 180 mg tablet 06-13 00:00: 00 05-23 00:00 :00 No [id number] TAKE 3 TABLETS BY MOUTH EVERY 12 HOURS [facility] rosuvastati n 5 mg tablet 06-10 00:00: 00 12-22 00:00 :00 No [id number] 5mg Take 1 tablet by mouth at bedtime. [facility] Insulin [place], Disposable, (PEN NEEDLE) 31 gauge x 3/16" Ndle 06-10 00:00: 00 11-18 00:00 :00 No [id number] [id number] Use as directed [facility] Insulin Glargine (LANTUS SOLOSTAR U-100 INSULIN) 100 unit/mL (3 mL) injection 06-10 00:00: 00 09-09 00:00 :00 No [id number] 10U inject 10 Units under the skin daily. [facility] insulin glargine (LANTUS U-100) injection 10 Units 06-09 20:45: 00 06-09 20:26 :00 No 10U 10 Units, Subcutaneo us, ONCE, 1 dose, On Thu06/09/24 at 1545, Routine [facility] NaCl 0.9% (NS) bolus infusion 1,000 mL 06-09 19:15: 00 06-09 21:22 :00 No 1000mL at 999 mL/hr, 1,000 mL, IV Infusion, ONCE, 1 dose, On Leslie 06/09/24 at 1415, DIEUDONNE [facility] cefdinir 300 mg capsule 06-09 00:00: 00 07-04 00:00 :00 No [id number] 300mg Take 1 capsule by mouth 2 (two) times daily. [facility] blood sugar diagnostic (GLUCOCARD SHINE TEST STRIPS) strip 06-08 00:00: 00 Yes [id number] Check fasting BLOOD SUGAR DAILY [facility] Blood-Gluco se Meter (GLUCOCARD SHINE METER) [facility] [place] 06-08 00:00: 00 08-23 00:00 :00 No [id number] Use as directed [facility] lancets (TECHLITE LANCETS) 28 gauge [facility] [place] 06-08 00:00: 00 06-14 00:00 :00 No [id number] Check FASTING BLOOD SUGAR DAILY [facility] Insulin Glargine 100 unit/mL (3 mL) injection 06-08 00:00: 00 06-10 00:00 :00 No [id number] 10U inject 10 Units under the skin daily. [facility] mycophenola te sodium (MYFORTIC) 180 mg EC tablet 06-07 00:00: 00 06-13 00:00 :00 No [id number] TAKE 3 TABLETS BY MOUTH EVERY 12 HOURS [facility] spironolact one 25 mg tablet 06-03 00:00: 00 09-05 00:00 :00 No [id number] 25mg Take 1 tablet by mouth daily. [facility] umeclidiniu m (INCRUSE ELLIPTA) 62.5 mcg/actuati on DsDv 05-31 00:00: 00 08-26 00:00 :00 No [id number] 1{puff} INHALE 1 PUFF BY MOUTH DAILY [facility] cycloSPORIN E 25 mg capsule - 00:00: 04-24 00:00 :00 No [id number] 25mg Take 1 capsule by mouth every 12 (twelve) hours. [facility] ALBUTEROL 90 mcg/actuati on inhaler 05-24 00:00: 06-24 00:00 :00 No [id number] 2{puff} INHALE 2 PUFFS BY MOUTH EVERY 6 HOURS NEEDED FOR WHEEZING OR SHORTNESS OF BREATH [facility] ALBUTEROL 90 mcg/actuati on inhaler 6-10 00:00: 00 05-24 00:00 :00 No [id number] 2{puff} INHALE 2 PUFFS BY MOUTH EVERY 6 HOURS NEEDED FOR WHEEZING OR SHORTNESS OF BREATH [facility] ALBUTEROL 90 mcg/actuati on inhaler 5-17 00:00: 00 05-02 00:00 :00 No [id number] 2{puff} INHALE 2 PUFFS BY MOUTH EVERY 6 HOURS NEEDED FOR WHEEZING OR SHORTNESS OF BREATH [facility] carvediloL 25 mg tablet 5-03 00:00: 00 12-11 00:00 :00 No 25mg Take 1 tablet by mouth 2 (two) times daily with meals. [facility] famotidine 20 mg tablet 5-03 00:00: 00 07-01 00:00 :00 No [id number] 20mg Take 1 tablet by mouth 2 (two) times daily. [facility] OMEPRAZOLE 20 mg capsule 0 4-29 00:00: 00 07-01 00:00 :00 No [id number] 20mg TAKE 1 CAPSULE BY MOUTH DAILY [facility] FUROSEMIDE 20 mg tablet 0 4-24 00:00: 00 12-19 00:00 :00 No [id number] TAKE 1 TABLET BY MOUTH TWICE DAILY NEEDED FOR SWELLING [facility] GLIPIZIDE 10 mg tablet 03-14 00:00: 00 09-26 00:00 :00 No [id number] TAKE 1 TABLET BY MOUTH TWICE DAILY BEFORE BREAKFAST AND DINNER [facility] ALBUTEROL 90 mcg/actuati on inhaler 03-11 00:00: 00 04-08 00:00 :00 No [id number] 2{puff} INHALE 2 PUFFS EVERY 6 HOURS NEEDED FOR WHEEZING OR SHORTNESS OF BREATH. [facility] rosuvastati n 5 mg tablet 03-09 00:00: 00 06-09 00:00 :00 No [id number] 5mg TAKE 1 TABLET BY MOUTH AT BEDTIME [facility] calcium carbonate 650 mg calcium (1,625 mg) tablet 03-07 15:04: 44 Yes 650mg Take 1 tablet by mouth daily. [facility] MONTELUKAST 10 mg tablet 03-07 00:00: 00 08-26 00:00 :00 No [id number] 10mg TAKE 1 TABLET BY MOUTH EVERY EVENING [facility] irbesartan 150 mg tablet 03-04 00:00: 00 04-04 00:00 :00 No [id number] 150mg TAKE 1 TABLET BY MOUTH AT BEDTIME [facility] glipiZIDE XL 2.5 mg 24 hr tablet 02-22 00:00: 00 08-26 00:00 :00 No [id number] 2.5mg Take 1 tablet by mouth daily with breakfast. [facility] denosumab (PROLIA) injection Syrg 60 mg 2 17:00: 00 12-24 16:00 :00 No [id number] 60mg 60 mg, Subcutaneo us, ONCE, 1 dose, On Thu12/24/23 at 1100, Routine
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 [facility] irbesartan 150 mg tablet 11-24 00:00: 00 03-04 00:00 :00 No [id number] 150mg TAKE 1 TABLET BY MOUTH AT BEDTIME [facility] PNV,calcium 72-iron-fol ic acid (WESTAB PLUS) 27 mg iron- 1 mg tablet 2022-11 00:00: 00 06-23 00:00 :00 No [id number] 1{tbl} TAKE 1 TABLET BY MOUTH EVERY MORNING [facility] glipiZIDE 10 mg tablet 2022-11 00:00: 00 03-14 00:00 :00 No [id number] 10mg Take 1 tablet by mouth 2 (two) times daily before breakfast and dinner. [facility] OMEPRAZOLE 20 mg capsule 2022-11 00:00: 00 12-21 00:00 :00 No [id number] 20mg TAKE 1 CAPSULE BY MOUTH DAILY [facility] glipiZIDE XL 2.5 mg 24 hr tablet 2022-11 00:00: 09-22 00:00 :00 No [id number] Pt to take 7.5mg daily, 5mg tab plus 2.5mg tab [facility] MONTELUKAST 10 mg tablet 2022-11 00:00: 00 12-03 00:00 :00 No [id number] 10mg TAKE 1 TABLET BY MOUTH EVERY EVENING [facility] FLUTICASONE PROPION-HAKAN METEROL 250-50 mcg/dose inhalation disk 08-19 00:00: 00 Yes [id number] 1{puff} INHALE 1 PUFF BY MOUTH EVERY 12 HOURS [facility] famotidine 20 mg tablet 9-13 00:00: 00 11-27 00:00 :00 No [id number] 20mg Take 1 tablet by mouth 2 (two) times daily. [facility] amoxicillin 500 mg tablet -11 00:00: 00 07-11 04:59 :00 No [id number] 500mg Take 1 tablet by mouth 2 (two) times daily for 7 days. [facility] montelukast 10 mg tablet 07-02 00:00: 00 09-14 00:00 :00 No [id number] 10mg Take 1 tablet by mouth every evening. [facility] denosumab (PROLIA) injection Syrg 60 mg 06-18 14:45: 00 06-18 14:39 :00 No [id number] 60mg 60 mg, Subcutaneo us, ONCE, 1 dose, On Thu06/18/23 at 0945, Routine
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 [facility] predniSONE 5 mg tablet 06-05 00:00: 00 07-08 00:00 :00 No [id number] 5mg Take 1 tablet by mouth daily. [facility] carvediloL 25 mg tablet 06-05 00:00: 00 03-24 00:00 :00 No 25mg Take 1 tablet by mouth 2 (two) times daily with meals. [facility] furosemide 20 mg tablet 06-05 00:00: 00 03-16 00:00 :00 No 20mg Take 1 tablet by mouth as needed (edema). Take 1 tablet two times daily [facility] rosuvastati n 5 mg tablet 06-05 00:00: 00 03-09 00:00 :00 No [id number] 5mg Take 1 tablet by mouth at bedtime. [facility] PNV,calcium 72-iron-fol ic acid (WESTAB PLUS) 27 mg iron- 1 mg tablet 06-05 00:00: 00 09-22 00:00 :00 No 1{tbl} Take 1 tablet by mouth every morning. [facility] omeprazole 20 mg capsule 06-05 00:00: 00 09-18 00:00 :00 No [id number] 20mg Take 1 capsule by mouth daily. [facility] nystatin 100,000 unit/mL suspension 06-02 00:00: 00 06-10 04:59 :00 No [id number] Take 5 mL by mouth 4 (four) times daily for 7 days. [facility] umeclidiniu m (INCRUSE ELLIPTA) 62.5 mcg/actuati on DsDv 05-29 00:00: 00 05-31 00:00 :00 No [id number] 1{puff} Inhale 1 Puff daily. [facility] cycloSPORIN E 25 mg capsule 05-15 00:00: 00 05-24 00:00 :00 No [id number] 25mg Take 1 capsule by mouth every 12 (twelve) hours. [facility] calcitrioL 0.25 mcg capsule 16 00:00: 00 11-19 00:00 :00 No [id number] .25ug Take 1 capsule by mouth daily. [facility] tiotropium 18 mcg inhalation 05-01 00:00: 00 05-29 00:00 :00 No [id number] 18ug Inhale 1 capsule daily. [facility] predniSONE 5 mg tablet 05 00:00: 00 06-04 00:00 :00 No [id number] 5mg Take 1 tablet by mouth daily. [facility] mycophenola te sodium 180 mg EC tablet 04-24 00:00: 00 12-04 00:00 :00 No TAKE 3 TABLETS BY MOUTH EVERY 12 HOURS [facility] glipiZIDE 5 mg tablet 04-13 00:00: 00 09-22 00:00 :00 No [id number] TAKE 2 TABLETS BY MOUTH EVERY MORNING AND TAKE 1 TABLET BY MOUTH EVERY EVENING [facility] montelukast 10 mg tablet 04-09 00:00: 00 07-01 00:00 :00 No [id number] 10mg Take 1 tablet by mouth every evening. [facility] amoxicillin -clavulanat e (AUGMENTIN) 875-125 mg per tablet 04-03 00:00: 00 04-11 04:59 :00 No [id number] 1{tbl} Take 1 tablet by mouth 2 (two) times daily for 7 days. [facility] nystatin 100,000 unit/mL suspension 04-03 00:00: 00 04-11 04:59 :00 No [id number] Take 5 mL by mouth 4 (four) times daily for 7 days. [facility] irbesartan 150 mg tablet 24 00:00: 00 11-24 00:00 :00 No [id number] 150mg Take 1 tablet by mouth at bedtime. [facility] omeprazole 20 mg capsule -21 00:00: 00 06-04 00:00 :00 No [id number] 20mg Take 1 capsule by mouth daily. [facility] calcium carbonate 650 mg calcium (1,625 mg) tablet 3-29 14:00: 07 Yes 650mg Take 650 mg by mouth daily. [facility] fluticasone propion-hakan meteroL (ADVAIR DISKUS) 250-50 mcg/dose inhalation disk 02-16 00:00: 00 08-19 00:00 :00 No [id number] 1{puff} Inhale 1 Puff every 12 (twelve) hours. [facility] cycloSPORIN E (RESTASIS) 0.05 % drops 02-09 00:00: 00 06-11 00:00 :[id number] 1 DROP IN BOTH EYES EVERY 12 HOURS [facility] FAMOTIDINE 20 mg tablet 01-30 00:00: 00 08-05 00:00 :00 No [id number] TAKE 1 TABLET BY MOUTH TWICE DAILY [facility] albuterol 90 mcg/actuati on inhaler 01-27 00:00: 00 03-11 00:00 :00 No [id number] 2{puff} Inhale 2 Puffs every 6 (six) hours as needed for Wheezing or Shortness of Breath. [facility] benzonatate 200 mg capsule 01-27 00:00: 00 02-04 04:59 :00 No [id number] 200mg Take 1 capsule by mouth 3 (three) times daily as needed for Cough for up to 7 days. [facility] famotidine (PEPCID) 20 mg tablet 01-23 00:00: 00 01-30 00:00 :00 No [id number] 20mg Take 1 tablet by mouth daily. [facility] MONTELUKAST 10 mg tablet 2-16 00:00: 00 04-09 00:00 :00 No [id number] 10mg TAKE 1 TABLET BY MOUTH EVERY EVENING [facility] OMEPRAZOLE 20 mg capsule 2021-11- 00:00: 00 03-12 00:00 :00 No [id number] 20mg TAKE 1 CAPSULE BY MOUTH DAILY [facility] tiotropium 18 mcg inhalation 2021-11- 00:00: 00 05-01 00:00 :00 No [id number] 18ug Inhale 1 capsule daily. [facility] calcium carbonate 650 mg calcium (1,625 mg) tablet 2021-11 09:32: 41 Yes 650mg Take 650 mg by mouth daily. [facility] albuterol 90 mcg/actuati on inhaler 2021-11 00:00: 00 01-04 00:00 :00 No [id number] 2{puff} Inhale 2 Puffs every 6 (six) hours as needed for Wheezing or Shortness of Breath. [facility] PNV,calcium 72-iron-fol ic acid (WESTAB PLUS) 27 mg iron- 1 mg tablet 2021-11 00:00: 00 Yes 1{tbl} Take 1 tablet by mouth every morning. [facility] PNV,calcium 72-iron-fol ic acid (WESTAB PLUS) 27 mg iron- 1 mg tablet 2021-11 00:00: 00 06-04 00:00 :00 No 1{tbl} Take 1 tablet by mouth every morning. [facility] albuterol 90 mcg/actuati on inhaler 2021-11 00:00: 00 09-16 00:00 :00 No [id number] 2{puff} Inhale 2 Puffs every 6 (six) hours as needed for Wheezing or Shortness of Breath. [facility] calcium carbonate 650 mg calcium (1,625 mg) tablet 08-20 14:02: 30 Yes 650mg Take 650 mg by mouth daily. [facility] GLIPIZIDE 5 mg tablet 08-04 00:00: 00 04-13 00:00 :00 No [id number] TAKE 2 TABLETS BY MOUTH EVERY MORNING AND TAKE 1 TABLET BY MOUTH EVERY EVENING [facility] calcium carbonate 650 mg calcium (1,625 mg) tablet 07-18 16:09: 09 Yes 650mg Take 650 mg by mouth daily. [facility] nystatin 100,000 unit/mL suspension 07-18 00:00: 00 07-26 04:59 :00 No [id number] Take 5 mL by mouth 4 (four) times daily for 7 days. [facility] spironolact one 25 mg tablet 07-09 00:00: 00 06-04 00:00 :00 No [id number] 25mg Take 1 tablet by mouth daily. [facility] montelukast 10 mg tablet 07-09 00:00: 00 01-08 00:00 :00 No [id number] 10mg Take 1 tablet by mouth every evening. [facility] furosemide 20 mg tablet 06-27 00:00: 00 06-04 00:00 :00 No Take 1 tablet two times daily [facility] PROAIR HFA 90 mcg/actuati on inhaler 05-09 00:00: 00 01-04 00:00 :00 No [id number] INHALE 2 PUFFS BY MOUTH EVERY 6 HOURS NEEDED FOR SHORTNESS OF BREATH [facility] cycloSPORIN E 25 mg capsule 05-09 00:00: 00 05-15 00:00 :00 No [id number] 25mg Take 1 capsule by mouth every 12 (twelve) hours. [facility] MYFORTIC 180 mg tablet 04-24 00:00: 00 06-07 00:00 :00 No TAKE 3 TABLETS BY MOUTH EVERY 12 HOURS [facility] MYCOPHENOLA TE SODIUM 180 mg EC tablet 04-24 00:00: 00 04-24 00:00 :00 No TAKE 3 TABLETS BY MOUTH EVERY 12 HOURS [facility] predniSONE 5 mg tablet 5-25 00:00: 00 04-24 00:00 :00 No [id number] 5mg Take 1 tablet by mouth daily. [facility] rosuvastati n 5 mg tablet -24 00:00: 00 06-04 00:00 :00 No [id number] 5mg Take 1 tablet by mouth at bedtime. [facility] carvediloL 25 mg tablet -24 00:00: 00 06-04 00:00 :00 No 25mg Take 1 tablet by mouth 2 (two) times daily with meals. [facility] calcitrioL 0.25 mcg capsule 04-15 00:00: 00 05-07 00:00 :00 No [id number] .25ug Take 1 capsule by mouth daily. [facility] irbesartan 150 mg tablet 04-15 00:00: 00 03-13 00:00 :00 No [id number] 150mg Take 1 tablet by mouth at bedtime. [facility] omeprazole 20 mg capsule 04-15 00:00: 00 11-10 00:00 :00 No [id number] 20mg Take 1 capsule by mouth daily. [facility] famotidine 20 mg tablet 04-15 00:00: 00 11-10 00:00 :00 No 20mg Take 1 tablet by mouth 2 (two) times daily. [facility] glipiZIDE 5 mg tablet 01-29 00:00: 00 08-04 00:00 :00 No [id number] TAKE 2 TABLETS BY MOUTH EVERY MORNING AND TAKE 1 TABLET BY MOUTH EVERY EVENING [facility] MONTELUKAST 10 mg tablet 01-29 00:00: 00 07-09 00:00 :00 No [id number] 10mg TAKE 1 TABLET BY MOUTH EVERY EVENING [facility] cycloSPORIN E (RESTASIS) 0.05 % drops 01-13 00:00: 00 02-09 00:00 :00 No [id number] 1[drp] Place 1 Drop in both eyes every 12 (twelve) hours. [facility] omeprazole 20 mg capsule 2020-11 00:00: 00 04-14 00:00 :00 No [id number] 20mg Take 1 capsule by mouth daily. [facility] WESTAB PLUS 27 mg iron- 1 mg tablet 2020-11 00:00: 00 09-04 00:00 :00 No TAKE 1 TABLET BY MOUTH DAILY [facility] WESTAB PLUS 27 mg iron- 1 mg tablet 2020-11 0- 00:00: 00 09-04 00:00 :00 No TAKE 1 TABLET BY MOUTH DAILY [facility] SPIRONOLACT ONE 25 mg tablet 2020-11 0-13 00:00: 00 07-06 00:00 :00 No [id number] 25mg TAKE 1 TABLET BY MOUTH DAILY [facility] PNV,calcium 72-iron-fol ic acid (PREPLUS) 27 mg iron- 1 mg tablet - 00:00: 00 09-04 00:00 :00 No 1{tbl} Take 1 tablet by mouth daily. [facility] predniSONE 5 mg tablet - 00:00: 00 04-14 00:00 :00 No [id number] 5mg Take 1 tablet by mouth daily. [facility] irbesartan 150 mg tablet - 00:00: 00 04-14 00:00 :00 No [id number] 150mg Take 1 tablet by mouth at bedtime. [facility] MONTELUKAST 10 mg tablet 05-06 00:00: 00 10-18 00:00 :00 No [id number] 10mg TAKE 1 TABLET BY MOUTH EVERY EVENING [facility] FUROSEMIDE 20 mg tablet 05-03 00:00: 00 06-27 00:00 :00 No TAKE 1 TABLET BY MOUTH EVERY MORNING AND EVERY EVENING [facility] carvediloL 25 mg tablet 6-10 00:00: 00 10-23 00:00 :00 No 25mg Take 1 tablet by mouth 2 (two) times daily with meals. [facility] mycophenola te sodium 180 mg EC tablet 5-17 00:00: 00 04-24 00:00 :00 No 540mg Take 3 tablets by mouth every 12 (twelve) hours. Z94.0 [facility] glipiZIDE 5 mg tablet 4-15 00:00: 10-10 00:00 :00 No [id number] Take 10 mg qam and 5 mg qpm [facility] CYCLOSPORIN E 25 mg capsule 4-05 00:00: 00 05-05 00:00 :00 No [id number] TAKE 1 CAPSULE BY MOUTH EVERY 12 HOURS [facility] CALCITRIOL 0.25 mcg capsule 3-03 00:00: 00 12-31 00:00 :00 No [id number] .25ug TAKE 1 CAPSULE BY MOUTH DAILY [facility] omeprazole 20 mg capsule 2-02 00:00: 00 10-02 00:00 :00 No [id number] 20mg Take 1 capsule by mouth daily. [facility] proMETHazin e 25 mg tablet 1-14 00:00: 00 Yes 12.5mg Take 0.5 tablets by mouth every 6 (six) hours as needed for Nausea and Vomiting (N/V). [facility] linaGLIPtin (TRADJENTA) 5 mg tablet -13 00:00: 00 12-24 00:00 :00 No [id number] 5mg Take 1 tablet by mouth daily. [facility] RESTASIS 0.05 % ophthalmic drops 2019-11 230 00:00: 00 01-13 00:00 :00 No [id number] INSTILL 1 DROP INTO BOTH EYES EVERY 12 HOURS [facility] fluticasone furoate-michelle anteroL (BREO ELLIPTA) 100-25 mcg/dose DsDv 2019-11 00:00: 00 Yes [id number] 1{puff} Inhale 1 Puff daily. [facility] famotidine 20 mg tablet 2019-11 1-12 00:00: 00 10-04 00:00 :00 No 20mg Take 1 tablet by mouth 2 (two) times daily. [facility] spironolact one 25 mg tablet 2019-11 0-12 00:00: 00 09-04 00:00 :00 No [id number] 25mg Take 1 tablet by mouth daily. [facility] darbepoetin blake (ARANESP) injection 60 mcg 03-14 14:30: 00 Yes 60ug [facility] predniSONE 5 mg tablet 2018-11 0-03 00:00: 00 02-24 00:00 :00 No [id number] 2.5mg Take 0.5 tablets by mouth daily. [facility] PRAVASTATIN 10 mg tablet 628 00:00: 00 05-07 00:00 :00 No [id number] 10mg TAKE 1 TABLET BY MOUTH AT BEDTIME [facility] PNV Comb No.78-Iron- Folic Acid (PRENATABS FA) 29-1 mg Tab 02-11 00:00: 00 08-24 00:00 :00 No 1{tbl} Take 1 tablet by mouth every morning. [facility] GUAIFENESIN /DM/PSEUDOE PHEDRINE (ROBITUSSIN COLD & COUGH ORAL) 2017-11 02:48: 59 09-17 00:00 :00 No Take by mouth. [facility] omeprazole 20 mg capsule 08-04 00:00: 00 08-31 00:00 :00 No 20mg Take 1 capsule by mouth daily. [facility] GLIPIZIDE XL 5 mg 24 hr tablet 08-02 00:00: 00 10-29 00:00 :00 No TAKE 1 TABLET BY MOUTH EVERY DAY WITH BREAKFAST. MUST REFILL WITH PCP OR SPECIALIST [facility] meloxicam 7.5 mg tablet 07-16 00:00: 00 09-04 00:00 :00 No 7.5mg Take 1 tablet by mouth daily. [facility] cycloSPORIN E (RESTASIS) 0.05 % drops 07-13 00:00: 00 07-27 00:00 :00 No 1[drp] Place 1 Drop in left eye every 12 (twelve) hours. [facility] ENOXAPARIN 40 mg/0.4 mL injection 16 00:00: 00 09-17 00:00 :00 No ADMINISTER 0.4 ML UNDER THE SKIN DAILY FOR 27 DAYS [facility] mycophenola te sodium (MYFORTIC) 360 mg EC tablet 07 00:00: 00 08-20 00:00 :00 No 720mg Take 2 tablets by mouth every 12 (twelve) hours. Z94.0 [facility] HYDROcodone -acetaminop hen 5-325 mg tablet 06-14 00:00: 09-21 00:00 :00 No 1{tbl} Take 1-2 tablets by mouth every 8 (eight) hours as needed for Pain (scale 7-10). [facility] traMADOL 50 mg tablet 05-24 00:00: 00 09-21 00:00 :00 No [id number] 50mg Take 1 tablet by mouth every 6 (six) hours as needed for Pain (scale 4-6) or Pain (scale 7-10). [facility] cyclobenzap rine 10 mg tablet 05-24 00:00: 09-17 00:00 :00 No [id number] 10mg Take 1 tablet by mouth 3 (three) times daily. [facility] Diclofenac Sodium 1 % gel 04-14 00:00: 00 01-28 00:00 :00 No Apply 1gram to affected area twice daily [facility] metoprolol succinate XL 50 mg 24 hr tablet 03-22 00:00: 00 09-21 00:00 :00 No 50mg Take 1 tablet by mouth every 12 (twelve) hours. [facility] pravastatin 10 mg tablet 03-22 00:00: 00 08-09 00:00 :00 No 10mg Take 1 tablet by mouth at bedtime. [facility] furosemide 40 mg tablet 03-09 00:00: 00 01-30 00:00 :00 No 40mg Take 1 tablet by mouth every morning and evening. [facility] spironolact one 25 mg tablet 03-02 00:00: 01-30 00:00 :00 No 25mg Take 1 tablet by mouth daily. [facility] famotidine 20 mg tablet 02-19 00:00: 00 08-23 00:00 :00 No [id number] 20mg Take 1 tablet by mouth 2 (two) times daily. [facility] PNV Comb No.78-Iron- Folic Acid (PRENATABS FA) 29-1 mg Tab 02-17 00:00: 00 02-11 00:00 :00 No 1{tbl} Take 1 tablet by mouth every morning. [facility] cycloSPORIN E modified 25 mg capsule 02-12 00:00: 00 09-22 00:00 :00 No 75mg Take 3 capsules by mouth every 12 (twelve) hours. Z94.0 [facility] calcitriol 0.25 mcg capsule 02-08 00:00: 00 02-11 00:00 :00 No [id number] .25ug Take 1 capsule by mouth daily. [facility] ondansetron (ZOFRAN, RHONAI DE,) 4 mg tablet 2016-11 00:00: 00 09-17 00:00 :00 No 4mg Take 1 tablet by mouth every 8 (eight) hours as needed for Nausea and Vomiting (N/V). [facility] Lancets (ONE TOUCH ULTRASOFT LANCETS) [facility] [place] 07-28 00:00: 00 Yes Use as directed [facility] Lancets (ONE TOUCH ULTRASOFT LANCETS) [facility] [place] 07-28 00:00: 00 Yes Use as directed [facility] blood sugar diagnostic (ONE TOUCH ULTRA TEST) strip 12 00:00: 00 09-21 00:00 :00 No [id number] before meals. [facility] bisacodyl (DULCOLAX, BISACODYL,) 5 mg EC tablet 2012-11-16 00:00: 00 01-30 00:00 :00 No [id number] 5mg Take 1 Tab by mouth once daily as needed for Constipati on. [facility] Immunizations Ordered Immunization Name Filled Immunization Name Date Status Comments Source Flu Injectable MDCK Pres-Free (FLUCELVAX) 2024-09-05 00:00:00 Completed [facility] Influenza Virus Vaccine,quad Im,preserve Free 65+ (FLUAD) 2023-09-16 00:00:00 Completed Influenza Virus Vaccine,quad Im,preserve Free 65+ (FLUAD) 2023-09-16 00:00:00 Completed Influenza Virus Vaccine,quad Im,preserve Free 65+ (FLUAD) 2023-09-16 00:00:00 Completed Influenza Virus Vaccine,quad Im,preserve Free 65+ (FLUAD) 2023-09-16 00:00:00 Completed Influenza Virus Vaccine,quad Im,preserve Free 65+ (FLUAD) 2023-09-16 00:00:00 Completed Influenza Virus Vaccine,quad Im,preserve Free 65+ (FLUAD) 2023-09-16 00:00:00 Completed Influenza Virus Vaccine,quad Im,preserve Free 65+ (FLUAD) 2023-09-16 00:00:00 Completed Influenza Virus Vaccine,quad Im,preserve Free 65+ (FLUAD) 2023-09-16 00:00:00 Completed Influenza Virus Vaccine,quad Im,preserve Free 65+ (FLUAD) 2023-09-16 00:00:00 Completed Influenza Virus Vaccine,quad Im,preserve Free 65+ (FLUAD) 2023-09-16 00:00:00 Completed Influenza Virus Vaccine,quad Im,preserve Free 65+ 2023-01-27 00:00:00 Completed [facility] Influenza Virus Vaccine,quad Im,preserve Free 65+ 2023-01-27 00:00:00 Completed [facility] Influenza Virus Vaccine,quad Im,preserve Free 65+ 2023-01-27 00:00:00 Completed [facility] Influenza Virus Vaccine,quad Im,preserve Free 65+ 2023-01-27 00:00:00 Completed [facility] Influenza Virus Vaccine,quad Im,preserve Free 65+ 2023-01-27 00:00:00 Completed [facility] Influenza Virus Vaccine,quad Im,preserve Free 65+ 2023-01-27 00:00:00 Completed [facility] Influenza Virus Vaccine,quad Im,preserve Free 65+ 2023-01-27 00:00:00 Completed [facility] Influenza Virus Vaccine,quad Im,preserve Free 65+ 2023-01-27 00:00:00 Completed [facility] Influenza Virus Vaccine,quad Im,preserve Free [id number] 00:00:00 Completed [facility] Influenza Virus Vaccine,quad Im,preserve Free 2023-01-27 00:00:00 Completed [facility] Influenza Virus Vaccine,quad Im,preserve Free 2023-01-27 00:00:00 Completed [facility] Influenza Virus Vaccine,quad Im,preserve Free [id number] 00:00:00 Completed [facility] Influenza Virus Vaccine,quad Im,preserve Free [id number] 00:00:00 Completed [facility] Influenza Virus Vaccine,quad Im,preserve Free 2023-01-27 00:00:00 Completed [facility] Influenza Virus Vaccine,quad Im,preserve Free 2023-01-27 00:00:00 Completed [facility] Influenza Virus Vaccine,quad Im,preserve Free 2023-01-27 00:00:00 Completed [facility] Influenza Virus Vaccine,quad Im,preserve Free 2023-01-27 00:00:00 Completed [facility] Influenza Virus Vaccine,quad Im,preserve Free 2023-01-27 00:00:00 Completed [facility] Influenza Virus Vaccine,quad Im,preserve Free 2023-01-27 00:00:00 Completed [facility] Influenza Virus Vaccine,quad Im,preserve Free 2023-01-27 00:00:00 Completed [facility] Influenza Virus Vaccine,quad Im,preserve Free 2023-01-27 00:00:00 Completed [facility] Influenza Virus Vaccine,quad Im,preserve Free 2023-01-27 00:00:00 Completed [facility] Influenza Virus Vaccine,quad Im,preserve Free 2023-01-27 00:00:00 Completed [facility] Influenza Virus Vaccine,quad Im,preserve Free 2023-01-27 00:00:00 Completed [facility] Influenza Virus Vaccine,quad Im,preserve Free 2023-01-27 00:00:00 Completed [facility] Influenza Virus Vaccine,quad Im,preserve Free [id number] 00:00:00 Completed [facility] Influenza Virus Vaccine,quad Im,preserve Free 2023-01-27 00:00:00 Completed [facility] Influenza Virus Vaccine,quad Im,preserve Free 2023-01-27 00:00:00 Completed [facility] Influenza Virus Vaccine,quad Im,preserve Free 2023-01-27 00:00:00 Completed [facility] Influenza Virus Vaccine,quad Im,preserve Free 2023-01-27 00:00:00 Completed [facility] Influenza Virus Vaccine,quad Im,preserve Free 2023-01-27 00:00:00 Completed [facility] Influenza Virus Vaccine,quad Im,preserve Free 2023-01-27 00:00:00 Completed [facility] Influenza Virus Vaccine,quad Im,preserve Free 2023-01-27 00:00:00 Completed [facility] Influenza Virus Vaccine,quad Im,preserve Free 2023-01-27 00:00:00 Completed [facility] Influenza Virus Vaccine,quad Im,preserve Free 2023-01-27 00:00:00 Completed [facility] Influenza Virus Vaccine,quad Im,preserve Free 2023-01-27 00:00:00 Completed [facility] Influenza Virus Vaccine,quad Im,preserve Free 2023-01-27 00:00:00 Completed [facility] Influenza Virus Vaccine,quad Im,preserve Free 2023-01-27 00:00:00 Completed [facility] Influenza Virus Vaccine,quad Im,preserve Free 2023-01-27 00:00:00 Completed [facility] Influenza Virus Vaccine,quad Im,preserve Free 2023-01-27 00:00:00 Completed [facility] Influenza Virus Vaccine,quad Im,preserve Free 2023-01-27 00:00:00 Completed [facility] Influenza Virus Vaccine,quad Im,preserve Free 2023-01-27 00:00:00 Completed [facility] Influenza Virus Vaccine,quad Im,preserve Free 2023-01-27 00:00:00 Completed [facility] Influenza Virus Vaccine,quad Im,preserve Free 65+ 2023-01-27 00:00:00 Completed [facility] Influenza Virus Vaccine,quad Im,preserve Free 65+ 2023-01-27 00:00:00 Completed [facility] Influenza Virus Vaccine,quad Im,preserve Free 65+ 2023-01-27 00:00:00 Completed [facility] Influenza Virus Vaccine,quad Im,preserve Free 65+ 2023-01-27 00:00:00 Completed [facility] Influenza Virus Vaccine,quad Im,preserve Free 65+ 2023-01-27 00:00:00 Completed [facility] Influenza Virus Vaccine,quad Im,preserve Free 65+ 2023-01-27 00:00:00 Completed [facility] Influenza Virus Vaccine,quad Im,preserve Free 65+ 2023-01-27 00:00:00 Completed [facility] Influenza Virus Vaccine,quad Im,preserve Free 65+ 2023-01-27 00:00:00 Completed [facility] Influenza Virus Vaccine,quad Im,preserve Free 65+ 2023-01-27 00:00:00 Completed [facility] Influenza Virus Vaccine,quad Im,preserve Free 65+ (FLUAD) 2023-01-27 00:00:00 Completed [facility] Influenza Virus Vaccine,quad Im,preserve Free 65+ (FLUAD) 2023-01-27 00:00:00 Completed [facility] Influenza Virus Vaccine,quad Im,preserve Free 65+ (FLUAD) 2023-01-27 00:00:00 Completed [facility] Influenza Virus Vaccine,quad Im,preserve Free 65+ (FLUAD) 2023-01-27 00:00:00 Completed Influenza Virus Vaccine,quad Im,preserve Free 65+ (FLUAD) 2023-01-27 00:00:00 Completed Influenza Virus Vaccine,quad Im,preserve Free 65+ (FLUAD) 2023-01-27 00:00:00 Completed Influenza Virus Vaccine,quad Im,preserve Free 65+ (FLUAD) 2023-01-27 00:00:00 Completed Influenza Virus Vaccine,quad Im,preserve Free 65+ (FLUAD) 2023-01-27 00:00:00 Completed Influenza Virus Vaccine,quad Im,preserve Free 65+ (FLUAD) 2023-01-27 00:00:00 Completed Influenza Virus Vaccine,quad Im,preserve Free 65+ (FLUAD) 2023-01-27 00:00:00 Completed Influenza Virus Vaccine,quad Im,preserve Free 65+ (FLUAD) 2023-01-27 00:00:00 Completed [facility]enza Virus Vaccine,quad Im,preserve Free 65+ (FLUAD) 2023-01-27 00:00:00 Completed Influenza Virus Vaccine,quad Im,preserve Free 65+ (FLUAD) 2023-01-27 00:00:00 Completed Influenza Virus Vaccine Quad ID 18-64 YRS 2021-12-31 00:00:00 Completed [facility] Influenza Virus Vaccine Quad ID 18-64 YRS 2021-12-31 00:00:00 Completed [facility] Influenza Virus Vaccine Quad ID 18-64 YRS 2021-12-31 00:00:00 Completed [facility] Influenza Virus Vaccine Quad ID 18-64 YRS 2021-12-31 00:00:00 Completed [facility] Influenza Virus Vaccine Quad ID 18-64 YRS 2021-12-31 00:00:00 Completed [facility] Influenza Virus Vaccine Quad ID 18-64 YRS 2021-12-31 00:00:00 Completed [facility] Influenza Virus Vaccine Quad ID 18-64 YRS 2021-12-31 00:00:00 Completed [facility] Influenza Virus Vaccine Quad ID 18-64 YRS 2021-12-31 00:00:00 Completed [facility] Influenza Virus Vaccine Quad ID 18-64 YRS 2021-12-31 00:00:00 Completed [facility] Influenza Virus Vaccine Quad ID 18-64 YRS 2021-12-31 00:00:00 Completed [facility] Influenza Virus Vaccine Quad ID 18-64 YRS 2021-12-31 00:00:00 Completed [facility] Influenza Virus Vaccine Quad ID 18-64 YRS 2021-12-31 00:00:00 Completed [facility] Influenza Virus Vaccine Quad ID 18-64 YRS 2021-12-31 00:00:00 Completed [facility] Influenza Virus Vaccine Quad ID 18-64 YRS 2021-12-31 00:00:00 Completed [facility] Influenza Virus Vaccine Quad ID 18-64 YRS 2021-12-31 00:00:00 Completed [facility] Influenza Virus Vaccine Quad ID 18-64 YRS 2021-12-31 00:00:00 Completed [facility] Influenza Virus Vaccine Quad ID 18-64 YRS 2021-12-31 00:00:00 Completed [facility] Influenza Virus Vaccine Quad ID 18-64 YRS 2021-12-31 00:00:00 Completed [facility] Influenza Virus Vaccine Quad ID 18-64 YRS 2021-12-31 00:00:00 Completed [facility] Influenza Virus Vaccine Quad ID 18-64 YRS 2021-12-31 00:00:00 Completed [facility] Influenza Virus Vaccine Quad ID 18-64 YRS 2021-12-31 00:00:00 Completed [facility] Influenza Virus Vaccine Quad ID 18-64 YRS 2021-12-31 00:00:00 Completed [facility] Influenza Virus Vaccine Quad ID 18-64 YRS 2021-12-31 00:00:00 Completed [facility] Influenza Virus Vaccine Quad ID 18-64 YRS 2021-12-31 00:00:00 Completed [facility] Influenza Virus Vaccine Quad ID 18-64 YRS 2021-12-31 00:00:00 Completed [facility] Influenza Virus Vaccine Quad ID 18-64 YRS 2021-12-31 00:00:00 Completed [facility] Influenza Virus Vaccine Quad ID 18-64 YRS 2021-12-31 00:00:00 Completed [facility] Influenza Virus Vaccine Quad ID 18-64 YRS 2021-12-31 00:00:00 Completed [facility] Influenza Virus Vaccine Quad ID 18-64 YRS 2021-12-31 00:00:00 Completed [facility] Influenza Virus Vaccine Quad ID 18-64 YRS 2021-12-31 00:00:00 Completed [facility] Influenza Virus Vaccine Quad ID 18-64 YRS 2021-12-31 00:00:00 Completed [facility] Influenza Virus Vaccine Quad ID 18-64 YRS 2021-12-31 00:00:00 Completed [facility] Influenza Virus Vaccine Quad ID 18-64 YRS 2021-12-31 00:00:00 Completed [facility] Influenza Virus Vaccine Quad ID 18-64 YRS 2021-12-31 00:00:00 Completed [facility] Influenza Virus Vaccine Quad ID 18-64 YRS 2021-12-31 00:00:00 Completed [facility] Influenza Virus Vaccine Quad ID 18-64 YRS 2021-12-31 00:00:00 Completed [facility] Influenza Virus Vaccine Quad ID 18-64 YRS 2021-12-31 00:00:00 Completed [facility] Influenza Virus Vaccine Quad ID 18-64 YRS 2021-12-31 00:00:00 Completed [facility] Influenza Virus Vaccine Quad ID 18-64 YRS 2021-12-31 00:00:00 Completed [facility] Influenza Virus Vaccine Quad ID 18-64 YRS 2021-12-31 00:00:00 Completed [facility] Influenza Virus Vaccine Quad ID 18-64 YRS 2021-12-31 00:00:00 Completed [facility] Influenza Virus Vaccine Quad ID 18-64 YRS 2021-12-31 00:00:00 Completed [facility] Influenza Virus Vaccine Quad ID 18-64 YRS 2021-12-31 00:00:00 Completed [facility] Influenza Virus Vaccine Quad ID 18-64 YRS 2021-12-31 00:00:00 Completed [facility] Influenza Virus Vaccine Quad ID 18-64 YRS 2021-12-31 00:00:00 Completed [facility] Influenza Virus Vaccine Quad ID 18-64 YRS 2021-12-31 00:00:00 Completed [facility] Influenza Virus Vaccine Quad ID 18-64 YRS 2021-12-31 00:00:00 Completed [facility] Influenza Virus Vaccine Quad ID 18-64 YRS 2021-12-31 00:00:00 Completed [facility] Influenza Virus Vaccine Quad ID 18-64 YRS 2021-12-31 00:00:00 Completed [facility] Influenza Virus Vaccine Quad ID 18-64 YRS 2021-12-31 00:00:00 Completed [facility] Influenza Virus Vaccine Quad ID 18-64 YRS 2021-12-31 00:00:00 Completed [facility] Influenza Virus Vaccine Quad ID 18-64 YRS 2021-12-31 00:00:00 Completed [facility] Influenza Virus Vaccine Quad ID 18-64 YRS 2021-12-31 00:00:00 Completed [facility] Influenza Virus Vaccine Quad ID 18-64 YRS 2021-12-31 00:00:00 Completed [facility] Influenza Virus Vaccine Quad ID 18-64 YRS 2021-12-31 00:00:00 Completed [facility] Influenza Virus Vaccine Quad ID 18-64 YRS 2021-12-31 00:00:00 Completed [facility] Influenza Virus Vaccine Quad ID 18-64 YRS 2021-12-31 00:00:00 Completed [facility] Influenza Virus Vaccine Quad ID 18-64 YRS 2021-12-31 00:00:00 Completed [facility] Influenza Virus Vaccine Quad ID 18-64 YRS 2021-12-31 00:00:00 Completed [facility] Influenza Virus Vaccine Quad ID 18-64 YRS 2021-12-31 00:00:00 Completed [facility] Influenza Virus Vaccine Quad ID 18-64 YRS 2021-12-31 00:00:00 Completed [facility] Influenza Virus Vaccine Quad ID 18-64 YRS 2021-12-31 00:00:00 Completed [facility] Influenza Virus Vaccine Quad ID 18-64 YRS 2021-12-31 00:00:00 Completed [facility] Influenza Virus Vaccine Quad ID 18-64 YRS 2021-12-31 00:00:00 Completed [facility] Influenza Virus Vaccine Quad ID 18-64 YRS 2021-12-31 00:00:00 Completed [facility] Influenza Virus Vaccine Quad ID 18-64 YRS 2021-12-31 00:00:00 Completed [facility] Influenza Virus Vaccine Quad ID 18-64 YRS 2021-12-31 00:00:00 Completed [facility] Influenza Virus Vaccine Quad ID 18-64 YRS 2021-12-31 00:00:00 Completed [facility] Influenza Virus Vaccine Quad ID 18-64 YRS 2021-12-31 00:00:00 Completed [facility] Influenza Virus Vaccine Quad ID 18-64 YRS 2021-12-31 00:00:00 Completed [facility] Influenza Virus Vaccine Quad ID 18-64 YRS 2021-12-31 00:00:00 Completed [facility] Influenza Virus Vaccine Quad ID 18-64 YRS 2021-12-31 00:00:00 Completed [facility] Influenza Virus Vaccine Quad ID 18-64 YRS 2021-12-31 00:00:00 Completed [facility] Influenza Virus Vaccine Quad ID 18-64 YRS 2021-12-31 00:00:00 Completed [facility] Influenza Virus Vaccine Quad ID 18-64 YRS 2021-12-31 00:00:00 Completed [facility] Influenza Virus Vaccine Quad ID 18-64 YRS 2021-12-31 00:00:00 Completed [facility] Influenza Virus Vaccine Quad ID 18-64 YRS 2021-12-31 00:00:00 Completed [facility] Influenza Virus Vaccine Quad ID 18-64 YRS 2021-12-31 00:00:00 Completed [facility] Influenza Virus Vaccine Quad ID 18-64 YRS 2021-12-31 00:00:00 Completed [facility] Influenza Virus Vaccine Quad ID 18-64 YRS 2021-12-31 00:00:00 Completed [facility] Influenza Virus Vaccine Quad ID 18-64 YRS 2021-12-31 00:00:00 Completed [facility] Influenza Virus Vaccine Quad ID 18-64 YRS 2021-12-31 00:00:00 Completed [facility] Influenza Virus Vaccine Quad ID 18-64 YRS 2021-12-31 00:00:00 Completed [facility] Influenza Virus Vaccine Quad ID 18-64 YRS 2021-12-31 00:00:00 Completed [facility] Influenza Virus Vaccine Quad ID 18-64 YRS 2021-12-31 00:00:00 Completed [facility] Influenza Virus Vaccine Quad ID 18-64 YRS 2021-12-31 00:00:00 Completed [facility] Influenza Virus Vaccine Quad ID 18-64 YRS 2021-12-31 00:00:00 Completed [facility] Influenza Virus Vaccine Quad ID 18-64 YRS 2021-12-31 00:00:00 Completed [facility] Pneumococcal Polysaccharide, PPSV23 (PNEUMOVAX) 2021-12-24 00:00:00 Completed [facility] Pneumococcal Polysaccharide, PPSV23 (PNEUMOVAX) 2021-12-24 00:00:00 Completed [facility] Pneumococcal Polysaccharide, PPSV23 (PNEUMOVAX) 2021-12-24 00:00:00 Completed [facility] Pneumococcal Polysaccharide, PPSV23 (PNEUMOVAX) 2021-12-24 00:00:00 Completed [facility] Pneumococcal Polysaccharide, PPSV23 (PNEUMOVAX) 2021-12-24 00:00:00 Completed [facility] Pneumococcal Polysaccharide, PPSV23 (PNEUMOVAX) 2021-12-24 00:00:00 Completed [facility] Pneumococcal Polysaccharide, PPSV23 (PNEUMOVAX) 2021-12-24 00:00:00 Completed [facility] Pneumococcal Polysaccharide, PPSV23 (PNEUMOVAX) 2021-12-24 00:00:00 Completed [facility] Pneumococcal Polysaccharide, PPSV23 (PNEUMOVAX) 2021-12-24 00:00:00 Completed [facility] Pneumococcal Polysaccharide, PPSV23 (PNEUMOVAX) 2021-12-24 00:00:00 Completed [facility] Pneumococcal Polysaccharide, PPSV23 (PNEUMOVAX) 2021-12-24 00:00:00 Completed [facility] Pneumococcal Polysaccharide, PPSV23 (PNEUMOVAX) 2021-12-24 00:00:00 Completed [facility] Pneumococcal Polysaccharide, PPSV23 (PNEUMOVAX) 2021-12-24 00:00:00 Completed [facility] Pneumococcal Polysaccharide, PPSV23 (PNEUMOVAX) 2021-12-24 00:00:00 Completed [facility] Pneumococcal Polysaccharide, PPSV23 (PNEUMOVAX) 2021-12-24 00:00:00 Completed [facility] Pneumococcal Polysaccharide, PPSV23 (PNEUMOVAX) 2021-12-24 00:00:00 Completed [facility] Pneumococcal Polysaccharide, PPSV23 (PNEUMOVAX) 2021-12-24 00:00:00 Completed [facility] Pneumococcal Polysaccharide, PPSV23 (PNEUMOVAX) 2021-12-24 00:00:00 Completed [facility] Pneumococcal Polysaccharide, PPSV23 (PNEUMOVAX) 2021-12-24 00:00:00 Completed [facility] Pneumococcal Polysaccharide, PPSV23 (PNEUMOVAX) 2021-12-24 00:00:00 Completed [facility] Pneumococcal Polysaccharide, PPSV23 (PNEUMOVAX) 2021-12-24 00:00:00 Completed [facility] Pneumococcal Polysaccharide, PPSV23 (PNEUMOVAX) 2021-12-24 00:00:00 Completed [facility] Pneumococcal Polysaccharide, PPSV23 (PNEUMOVAX) 2021-12-24 00:00:00 Completed [facility] Pneumococcal Polysaccharide, PPSV23 (PNEUMOVAX) 2021-12-24 00:00:00 Completed [facility] Pneumococcal Polysaccharide, PPSV23 (PNEUMOVAX) 2021-12-24 00:00:00 Completed [facility] Pneumococcal Polysaccharide, PPSV23 (PNEUMOVAX) 2021-12-24 00:00:00 Completed [facility] Pneumococcal Polysaccharide, PPSV23 (PNEUMOVAX) 2021-12-24 00:00:00 Completed [facility] Pneumococcal Polysaccharide, PPSV23 (PNEUMOVAX) 2021-12-24 00:00:00 Completed [facility] Pneumococcal Polysaccharide, PPSV23 (PNEUMOVAX) 2021-12-24 00:00:00 Completed [facility] Pneumococcal Polysaccharide, PPSV23 (PNEUMOVAX) 2021-12-24 00:00:00 Completed [facility] Pneumococcal Polysaccharide, PPSV23 (PNEUMOVAX) 2021-12-24 00:00:00 Completed [facility] Pneumococcal Polysaccharide, PPSV23 (PNEUMOVAX) 2021-12-24 00:00:00 Completed [facility] Pneumococcal Polysaccharide, PPSV23 (PNEUMOVAX) 2021-12-24 00:00:00 Completed [facility] Pneumococcal Polysaccharide, PPSV23 (PNEUMOVAX) 2021-12-24 00:00:00 Completed [facility] Pneumococcal Polysaccharide, PPSV23 (PNEUMOVAX) 2021-12-24 00:00:00 Completed [facility] Pneumococcal Polysaccharide, PPSV23 (PNEUMOVAX) 2021-12-24 00:00:00 Completed [facility] Pneumococcal Polysaccharide, PPSV23 (PNEUMOVAX) 2021-12-24 00:00:00 Completed [facility] Pneumococcal Polysaccharide, PPSV23 (PNEUMOVAX) 2021-12-24 00:00:00 Completed [facility] Pneumococcal Polysaccharide, PPSV23 (PNEUMOVAX) 2021-12-24 00:00:00 Completed [facility] Pneumococcal Polysaccharide, PPSV23 (PNEUMOVAX) 2021-12-24 00:00:00 Completed [facility] Pneumococcal Polysaccharide, PPSV23 (PNEUMOVAX) 2021-12-24 00:00:00 Completed [facility] Pneumococcal Polysaccharide, PPSV23 (PNEUMOVAX) 2021-12-24 00:00:00 Completed [facility] Pneumococcal Polysaccharide, PPSV23 (PNEUMOVAX) 2021-12-24 00:00:00 Completed [facility] Pneumococcal Polysaccharide, PPSV23 (PNEUMOVAX) 2021-12-24 00:00:00 Completed [facility] Pneumococcal Polysaccharide, PPSV23 (PNEUMOVAX) 2021-12-24 00:00:00 Completed [facility] Pneumococcal Polysaccharide, PPSV23 (PNEUMOVAX) 2021-12-24 00:00:00 Completed [facility] Pneumococcal Polysaccharide, PPSV23 (PNEUMOVAX) 2021-12-24 00:00:00 Completed [facility] Pneumococcal Polysaccharide, PPSV23 (PNEUMOVAX) 2021-12-24 00:00:00 Completed [facility] Pneumococcal Polysaccharide, PPSV23 (PNEUMOVAX) 2021-12-24 00:00:00 Completed [facility] Pneumococcal Polysaccharide, PPSV23 (PNEUMOVAX) 2021-12-24 00:00:00 Completed [facility] Pneumococcal Polysaccharide, PPSV23 (PNEUMOVAX) 2021-12-24 00:00:00 Completed [facility] Pneumococcal Polysaccharide, PPSV23 (PNEUMOVAX) 2021-12-24 00:00:00 Completed [facility] Pneumococcal Polysaccharide, PPSV23 (PNEUMOVAX) 2021-12-24 00:00:00 Completed [facility] Pneumococcal Polysaccharide, PPSV23 (PNEUMOVAX) 2021-12-24 00:00:00 Completed [facility] Pneumococcal Polysaccharide, PPSV23 (PNEUMOVAX) 2021-12-24 00:00:00 Completed [facility] Pneumococcal Polysaccharide, PPSV23 (PNEUMOVAX) 2021-12-24 00:00:00 Completed [facility] Pneumococcal Polysaccharide, PPSV23 (PNEUMOVAX) 2021-12-24 00:00:00 Completed [facility] Pneumococcal Polysaccharide, PPSV23 (PNEUMOVAX) 2021-12-24 00:00:00 Completed [facility] Pneumococcal Polysaccharide, PPSV23 (PNEUMOVAX) 2021-12-24 00:00:00 Completed [facility] Pneumococcal Polysaccharide, PPSV23 (PNEUMOVAX) 2021-12-24 00:00:00 Completed [facility] Pneumococcal Polysaccharide, PPSV23 (PNEUMOVAX) 2021-12-24 00:00:00 Completed [facility] Pneumococcal Polysaccharide, PPSV23 (PNEUMOVAX) 2021-12-24 00:00:00 Completed [facility] Pneumococcal Polysaccharide, PPSV23 (PNEUMOVAX) 2021-12-24 00:00:00 Completed [facility] Pneumococcal Polysaccharide, PPSV23 (PNEUMOVAX) 2021-12-24 00:00:00 Completed [facility] Pneumococcal Polysaccharide, PPSV23 (PNEUMOVAX) 2021-12-24 00:00:00 Completed [facility] Pneumococcal Polysaccharide, PPSV23 (PNEUMOVAX) 2021-12-24 00:00:00 Completed [facility] Pneumococcal Polysaccharide, PPSV23 (PNEUMOVAX) 2021-12-24 00:00:00 Completed [facility] Pneumococcal Polysaccharide, PPSV23 (PNEUMOVAX) 2021-12-24 00:00:00 Completed [facility] Pneumococcal Polysaccharide, PPSV23 (PNEUMOVAX) 2021-12-24 00:00:00 Completed [facility] Pneumococcal Polysaccharide, PPSV23 (PNEUMOVAX) 2021-12-24 00:00:00 Completed [facility] Pneumococcal Polysaccharide, PPSV23 (PNEUMOVAX) 2021-12-24 00:00:00 Completed [facility] Pneumococcal Polysaccharide, PPSV23 (PNEUMOVAX) 2021-12-24 00:00:00 Completed [facility] Pneumococcal Polysaccharide, PPSV23 (PNEUMOVAX) 2021-12-24 00:00:00 Completed [facility] Pneumococcal Polysaccharide, PPSV23 (PNEUMOVAX) 2021-12-24 00:00:00 Completed [facility] Pneumococcal Polysaccharide, PPSV23 (PNEUMOVAX) 2021-12-24 00:00:00 Completed [facility] Pneumococcal Polysaccharide, PPSV23 (PNEUMOVAX) 2021-12-24 00:00:00 Completed [facility] Pneumococcal Polysaccharide, PPSV23 (PNEUMOVAX) 2021-12-24 00:00:00 Completed [facility] Pneumococcal Polysaccharide, PPSV23 (PNEUMOVAX) 2021-12-24 00:00:00 Completed [facility] Pneumococcal Polysaccharide, PPSV23 (PNEUMOVAX) 2021-12-24 00:00:00 Completed Pneumococcal Polysaccharide, PPSV23 (PNEUMOVAX) 2021-12-24 00:00:00 Completed Pneumococcal Polysaccharide, PPSV23 (PNEUMOVAX) 2021-12-24 00:00:00 Completed Pneumococcal Polysaccharide, PPSV23 (PNEUMOVAX) 2021-12-24 00:00:00 Completed Pneumococcal Polysaccharide, PPSV23 (PNEUMOVAX) 2021-12-24 00:00:00 Completed Pneumococcal Polysaccharide, PPSV23 (PNEUMOVAX) 2021-12-24 00:00:00 Completed Pneumococcal Polysaccharide, PPSV23 (PNEUMOVAX) 2021-12-24 00:00:00 Completed Pneumococcal Polysaccharide, PPSV23 (PNEUMOVAX) 2021-12-24 00:00:00 Completed Pneumococcal Polysaccharide, PPSV23 (PNEUMOVAX) 2021-12-24 00:00:00 Completed Pneumococcal Polysaccharide, PPSV23 (PNEUMOVAX) 2021-12-24 00:00:00 Completed SARS-COV-2 COVID-19 PFIZER VACCINE 2021-02-09 00:00:00 Completed [facility] SARS-COV-2 COVID-19 PFIZER VACCINE 2021-02-09 00:00:00 Completed [facility] SARS-COV-2 COVID-19 PFIZER VACCINE 2021-02-09 00:00:00 Completed [facility] SARS-COV-2 COVID-19 PFIZER VACCINE 2021-02-09 00:00:00 Completed [facility] SARS-COV-2 COVID-19 PFIZER VACCINE 2021-02-09 00:00:00 Completed [facility] SARS-COV-2 COVID-19 PFIZER VACCINE 2021-02-09 00:00:00 Completed [facility] SARS-COV-2 COVID-19 PFIZER VACCINE 2021-02-09 00:00:00 Completed [facility] SARS-COV-2 COVID-19 PFIZER VACCINE 2021-02-09 00:00:00 Completed [facility] SARS-COV-2 COVID-19 PFIZER VACCINE 2021-02-09 00:00:00 Completed [facility] SARS-COV-2 COVID-19 PFIZER VACCINE 2021-02-09 00:00:00 Completed [facility] SARS-COV-2 COVID-19 PFIZER VACCINE 2021-02-09 00:00:00 Completed [facility] SARS-COV-2 COVID-19 PFIZER VACCINE 2021-02-09 00:00:00 Completed [facility] SARS-COV-2 COVID-19 PFIZER VACCINE 2021-02-09 00:00:00 Completed [facility] SARS-COV-2 COVID-19 PFIZER VACCINE 2021-02-09 00:00:00 Completed [facility] SARS-COV-2 COVID-19 PFIZER VACCINE 2021-02-09 00:00:00 Completed [facility] SARS-COV-2 COVID-19 PFIZER VACCINE 2021-02-09 00:00:00 Completed [facility] SARS-COV-2 COVID-19 PFIZER VACCINE 2021-02-09 00:00:00 Completed [facility] SARS-COV-2 COVID-19 PFIZER VACCINE 2021-02-09 00:00:00 Completed [facility] SARS-COV-2 COVID-19 PFIZER VACCINE 2021-02-09 00:00:00 Completed [facility] SARS-COV-2 COVID-19 PFIZER VACCINE 2021-02-09 00:00:00 Completed [facility] SARS-COV-2 COVID-19 PFIZER VACCINE 2021-02-09 00:00:00 Completed [facility] SARS-COV-2 COVID-19 PFIZER VACCINE 2021-02-09 00:00:00 Completed [facility] SARS-COV-2 COVID-19 PFIZER VACCINE 2021-02-09 00:00:00 Completed [facility] SARS-COV-2 COVID-19 PFIZER VACCINE 2021-02-09 00:00:00 Completed [facility] SARS-COV-2 COVID-19 PFIZER VACCINE 2021-02-09 00:00:00 Completed [facility] SARS-COV-2 COVID-19 PFIZER VACCINE 2021-02-09 00:00:00 Completed [facility] SARS-COV-2 COVID-19 PFIZER VACCINE 2021-02-09 00:00:00 Completed [facility] SARS-COV-2 COVID-19 PFIZER VACCINE 2021-02-09 00:00:00 Completed [facility] SARS-COV-2 COVID-19 PFIZER VACCINE 2021-02-09 00:00:00 Completed [facility] SARS-COV-2 COVID-19 PFIZER VACCINE 2021-02-09 00:00:00 Completed [facility] SARS-COV-2 COVID-19 PFIZER VACCINE 2021-02-09 00:00:00 Completed [facility] SARS-COV-2 COVID-19 PFIZER VACCINE 2021-02-09 00:00:00 Completed [facility] SARS-COV-2 COVID-19 PFIZER VACCINE 2021-02-09 00:00:00 Completed [facility] SARS-COV-2 COVID-19 PFIZER VACCINE 2021-02-09 00:00:00 Completed [facility] SARS-COV-2 COVID-19 PFIZER VACCINE 2021-02-09 00:00:00 Completed [facility] SARS-COV-2 COVID-19 PFIZER VACCINE 2021-02-09 00:00:00 Completed [facility] SARS-COV-2 COVID-19 PFIZER VACCINE 2021-02-09 00:00:00 Completed [facility] SARS-COV-2 COVID-19 PFIZER VACCINE 2021-02-09 00:00:00 Completed [facility] SARS-COV-2 COVID-19 PFIZER VACCINE 2021-02-09 00:00:00 Completed [facility] SARS-COV-2 COVID-19 PFIZER VACCINE 2021-02-09 00:00:00 Completed [facility] SARS-COV-2 COVID-19 PFIZER VACCINE 2021-02-09 00:00:00 Completed [facility] SARS-COV-2 COVID-19 PFIZER VACCINE 2021-02-09 00:00:00 Completed [facility] SARS-COV-2 COVID-19 PFIZER VACCINE 2021-02-09 00:00:00 Completed [facility] SARS-COV-2 COVID-19 PFIZER VACCINE 2021-02-09 00:00:00 Completed [facility] SARS-COV-2 COVID-19 PFIZER VACCINE 2021-02-09 00:00:00 Completed [facility] SARS-COV-2 COVID-19 PFIZER VACCINE 2021-02-09 00:00:00 Completed [facility] SARS-COV-2 COVID-19 PFIZER VACCINE 2021-02-09 00:00:00 Completed [facility] SARS-COV-2 COVID-19 PFIZER VACCINE 2021-02-09 00:00:00 Completed [facility] SARS-COV-2 COVID-19 PFIZER VACCINE 2021-02-09 00:00:00 Completed [facility] SARS-COV-2 COVID-19 PFIZER VACCINE 2021-02-09 00:00:00 Completed [facility] SARS-COV-2 COVID-19 PFIZER VACCINE 2021-02-09 00:00:00 Completed [facility] SARS-COV-2 COVID-19 PFIZER VACCINE 2021-02-09 00:00:00 Completed [facility] SARS-COV-2 COVID-19 PFIZER VACCINE 2021-02-09 00:00:00 Completed [facility] SARS-COV-2 COVID-19 PFIZER VACCINE 2021-02-09 00:00:00 Completed [facility] SARS-COV-2 COVID-19 PFIZER VACCINE 2021-02-09 00:00:00 Completed [facility] SARS-COV-2 COVID-19 PFIZER VACCINE 2021-02-09 00:00:00 Completed [facility] SARS-COV-2 COVID-19 PFIZER VACCINE 2021-02-09 00:00:00 Completed [facility] SARS-COV-2 COVID-19 PFIZER VACCINE 2021-02-09 00:00:00 Completed [facility] SARS-COV-2 COVID-19 PFIZER VACCINE 2021-02-09 00:00:00 Completed [facility] SARS-COV-2 COVID-19 PFIZER VACCINE 2021-02-09 00:00:00 Completed [facility] SARS-COV-2 COVID-19 PFIZER VACCINE 2021-02-09 00:00:00 Completed [facility] SARS-COV-2 COVID-19 PFIZER VACCINE 2021-02-09 00:00:00 Completed [facility] SARS-COV-2 COVID-19 PFIZER VACCINE 2021-02-09 00:00:00 Completed [facility] SARS-COV-2 COVID-19 PFIZER VACCINE 2021-02-09 00:00:00 Completed [facility] SARS-COV-2 COVID-19 PFIZER VACCINE 2021-02-09 00:00:00 Completed [facility] SARS-COV-2 COVID-19 PFIZER VACCINE 2021-02-09 00:00:00 Completed [facility] SARS-COV-2 COVID-19 PFIZER VACCINE 2021-02-09 00:00:00 Completed [facility] SARS-COV-2 COVID-19 PFIZER VACCINE 2021-02-09 00:00:00 Completed [facility] SARS-COV-2 COVID-19 PFIZER VACCINE 2021-02-09 00:00:00 Completed [facility] SARS-COV-2 COVID-19 PFIZER VACCINE 2021-02-09 00:00:00 Completed [facility] SARS-COV-2 COVID-19 PFIZER VACCINE 2021-02-09 00:00:00 Completed [facility] SARS-COV-2 COVID-19 PFIZER VACCINE 2021-02-09 00:00:00 Completed [facility] SARS-COV-2 COVID-19 PFIZER VACCINE 2021-02-09 00:00:00 Completed [facility] SARS-COV-2 COVID-19 PFIZER VACCINE 2021-02-09 00:00:00 Completed [facility] SARS-COV-2 COVID-19 PFIZER VACCINE 2021-02-09 00:00:00 Completed [facility] SARS-COV-2 COVID-19 PFIZER VACCINE 2021-02-09 00:00:00 Completed [facility] SARS-COV-2 COVID-19 PFIZER VACCINE 2021-02-09 00:00:00 Completed [facility] SARS-COV-2 COVID-19 PFIZER VACCINE 2021-02-09 00:00:00 Completed [facility] SARS-COV-2 COVID-19 PFIZER VACCINE 2021-02-09 00:00:00 Completed [facility] SARS-COV-2 COVID-19 PFIZER VACCINE 2021-02-09 00:00:00 Completed [facility] SARS-COV-2 COVID-19 PFIZER VACCINE 2021-02-09 00:00:00 Completed [facility] SARS-COV-2 COVID-19 PFIZER VACCINE 2021-02-09 00:00:00 Completed [facility] SARS-COV-2 COVID-19 PFIZER VACCINE 2021-02-09 00:00:00 Completed [facility] SARS-COV-2 COVID-19 PFIZER VACCINE 2021-02-09 00:00:00 Completed [facility] SARS-COV-2 COVID-19 PFIZER VACCINE 2021-02-09 00:00:00 Completed [facility] SARS-COV-2 COVID-19 PFIZER VACCINE 2021-02-09 00:00:00 Completed [facility] SARS-COV-2 COVID-19 PFIZER VACCINE 2021-02-09 00:00:00 Completed [facility] SARS-COV-2 COVID-19 PFIZER VACCINE 2021-02-09 00:00:00 Completed [facility] SARS-COV-2 COVID-19 PFIZER VACCINE 2021-01-19 00:00:00 Completed [facility] SARS-COV-2 COVID-19 PFIZER VACCINE 2021-01-19 00:00:00 Completed [facility] SARS-COV-2 COVID-19 PFIZER VACCINE 2021-01-19 00:00:00 Completed [facility] SARS-COV-2 COVID-19 PFIZER VACCINE 2021-01-19 00:00:00 Completed [facility] SARS-COV-2 COVID-19 PFIZER VACCINE 2021-01-19 00:00:00 Completed [facility] SARS-COV-2 COVID-19 PFIZER VACCINE 2021-01-19 00:00:00 Completed [facility] SARS-COV-2 COVID-19 PFIZER VACCINE 2021-01-19 00:00:00 Completed [facility] SARS-COV-2 COVID-19 PFIZER VACCINE 2021-01-19 00:00:00 Completed [facility] SARS-COV-2 COVID-19 PFIZER VACCINE 2021-01-19 00:00:00 Completed [facility] SARS-COV-2 COVID-19 PFIZER VACCINE 2021-01-19 00:00:00 Completed [facility] SARS-COV-2 COVID-19 PFIZER VACCINE 2021-01-19 00:00:00 Completed [facility] SARS-COV-2 COVID-19 PFIZER VACCINE 2021-01-19 00:00:00 Completed [facility] SARS-COV-2 COVID-19 PFIZER VACCINE 2021-01-19 00:00:00 Completed [facility] SARS-COV-2 COVID-19 PFIZER VACCINE 2021-01-19 00:00:00 Completed [facility] SARS-COV-2 COVID-19 PFIZER VACCINE 2021-01-19 00:00:00 Completed [facility] SARS-COV-2 COVID-19 PFIZER VACCINE 2021-01-19 00:00:00 Completed [facility] SARS-COV-2 COVID-19 PFIZER VACCINE 2021-01-19 00:00:00 Completed [facility] SARS-COV-2 COVID-19 PFIZER VACCINE 2021-01-19 00:00:00 Completed [facility] SARS-COV-2 COVID-19 PFIZER VACCINE 2021-01-19 00:00:00 Completed [facility] SARS-COV-2 COVID-19 PFIZER VACCINE 2021-01-19 00:00:00 Completed [facility] SARS-COV-2 COVID-19 PFIZER VACCINE 2021-01-19 00:00:00 Completed [facility] SARS-COV-2 COVID-19 PFIZER VACCINE 2021-01-19 00:00:00 Completed [facility] SARS-COV-2 COVID-19 PFIZER VACCINE 2021-01-19 00:00:00 Completed [facility] SARS-COV-2 COVID-19 PFIZER VACCINE 2021-01-19 00:00:00 Completed [facility] SARS-COV-2 COVID-19 PFIZER VACCINE 2021-01-19 00:00:00 Completed [facility] SARS-COV-2 COVID-19 PFIZER VACCINE 2021-01-19 00:00:00 Completed [facility] SARS-COV-2 COVID-19 PFIZER VACCINE 2021-01-19 00:00:00 Completed [facility] SARS-COV-2 COVID-19 PFIZER VACCINE 2021-01-19 00:00:00 Completed [facility] SARS-COV-2 COVID-19 PFIZER VACCINE 2021-01-19 00:00:00 Completed [facility] SARS-COV-2 COVID-19 PFIZER VACCINE 2021-01-19 00:00:00 Completed [facility] SARS-COV-2 COVID-19 PFIZER VACCINE 2021-01-19 00:00:00 Completed [facility] SARS-COV-2 COVID-19 PFIZER VACCINE 2021-01-19 00:00:00 Completed [facility] SARS-COV-2 COVID-19 PFIZER VACCINE 2021-01-19 00:00:00 Completed [facility] SARS-COV-2 COVID-19 PFIZER VACCINE 2021-01-19 00:00:00 Completed [facility] SARS-COV-2 COVID-19 PFIZER VACCINE 2021-01-19 00:00:00 Completed [facility] SARS-COV-2 COVID-19 PFIZER VACCINE 2021-01-19 00:00:00 Completed [facility] SARS-COV-2 COVID-19 PFIZER VACCINE 2021-01-19 00:00:00 Completed [facility] SARS-COV-2 COVID-19 PFIZER VACCINE 2021-01-19 00:00:00 Completed [facility] SARS-COV-2 COVID-19 PFIZER VACCINE 2021-01-19 00:00:00 Completed [facility] SARS-COV-2 COVID-19 PFIZER VACCINE 2021-01-19 00:00:00 Completed [facility] SARS-COV-2 COVID-19 PFIZER VACCINE 2021-01-19 00:00:00 Completed [facility] SARS-COV-2 COVID-19 PFIZER VACCINE 2021-01-19 00:00:00 Completed [facility] SARS-COV-2 COVID-19 PFIZER VACCINE 2021-01-19 00:00:00 Completed [facility] SARS-COV-2 COVID-19 PFIZER VACCINE 2021-01-19 00:00:00 Completed [facility] SARS-COV-2 COVID-19 PFIZER VACCINE 2021-01-19 00:00:00 Completed [facility] SARS-COV-2 COVID-19 PFIZER VACCINE 2021-01-19 00:00:00 Completed [facility] SARS-COV-2 COVID-19 PFIZER VACCINE 2021-01-19 00:00:00 Completed [facility] SARS-COV-2 COVID-19 PFIZER VACCINE 2021-01-19 00:00:00 Completed [facility] SARS-COV-2 COVID-19 PFIZER VACCINE 2021-01-19 00:00:00 Completed [facility] SARS-COV-2 COVID-19 PFIZER VACCINE 2021-01-19 00:00:00 Completed [facility] SARS-COV-2 COVID-19 PFIZER VACCINE 2021-01-19 00:00:00 Completed [facility] SARS-COV-2 COVID-19 PFIZER VACCINE 2021-01-19 00:00:00 Completed [facility] SARS-COV-2 COVID-19 PFIZER VACCINE 2021-01-19 00:00:00 Completed [facility] SARS-COV-2 COVID-19 PFIZER VACCINE 2021-01-19 00:00:00 Completed [facility] SARS-COV-2 COVID-19 PFIZER VACCINE 2021-01-19 00:00:00 Completed [facility] SARS-COV-2 COVID-19 PFIZER VACCINE 2021-01-19 00:00:00 Completed [facility] SARS-COV-2 COVID-19 PFIZER VACCINE 2021-01-19 00:00:00 Completed [facility] SARS-COV-2 COVID-19 PFIZER VACCINE 2021-01-19 00:00:00 Completed [facility] SARS-COV-2 COVID-19 PFIZER VACCINE 2021-01-19 00:00:00 Completed [facility] SARS-COV-2 COVID-19 PFIZER VACCINE 2021-01-19 00:00:00 Completed [facility] SARS-COV-2 COVID-19 PFIZER VACCINE 2021-01-19 00:00:00 Completed [facility] SARS-COV-2 COVID-19 PFIZER VACCINE 2021-01-19 00:00:00 Completed [facility] SARS-COV-2 COVID-19 PFIZER VACCINE 2021-01-19 00:00:00 Completed [facility] SARS-COV-2 COVID-19 PFIZER VACCINE 2021-01-19 00:00:00 Completed [facility] SARS-COV-2 COVID-19 PFIZER VACCINE 2021-01-19 00:00:00 Completed [facility] SARS-COV-2 COVID-19 PFIZER VACCINE 2021-01-19 00:00:00 Completed [facility] SARS-COV-2 COVID-19 PFIZER VACCINE 2021-01-19 00:00:00 Completed [facility] SARS-COV-2 COVID-19 PFIZER VACCINE 2021-01-19 00:00:00 Completed [facility] SARS-COV-2 COVID-19 PFIZER VACCINE 2021-01-19 00:00:00 Completed [facility] SARS-COV-2 COVID-19 PFIZER VACCINE 2021-01-19 00:00:00 Completed [facility] SARS-COV-2 COVID-19 PFIZER VACCINE 2021-01-19 00:00:00 Completed [facility] SARS-COV-2 COVID-19 PFIZER VACCINE 2021-01-19 00:00:00 Completed [facility] SARS-COV-2 COVID-19 PFIZER VACCINE 2021-01-19 00:00:00 Completed [facility] SARS-COV-2 COVID-19 PFIZER VACCINE 2021-01-19 00:00:00 Completed [facility] SARS-COV-2 COVID-19 PFIZER VACCINE 2021-01-19 00:00:00 Completed [facility] SARS-COV-2 COVID-19 PFIZER VACCINE 2021-01-19 00:00:00 Completed [facility] SARS-COV-2 COVID-19 PFIZER VACCINE 2021-01-19 00:00:00 Completed [facility] SARS-COV-2 COVID-19 PFIZER VACCINE 2021-01-19 00:00:00 Completed [facility] SARS-COV-2 COVID-19 PFIZER VACCINE 2021-01-19 00:00:00 Completed [facility] SARS-COV-2 COVID-19 PFIZER VACCINE 2021-01-19 00:00:00 Completed [facility] SARS-COV-2 COVID-19 PFIZER VACCINE 2021-01-19 00:00:00 Completed [facility] SARS-COV-2 COVID-19 PFIZER VACCINE 2021-01-19 00:00:00 Completed [facility] SARS-COV-2 COVID-19 PFIZER VACCINE 2021-01-19 00:00:00 Completed [facility] SARS-COV-2 COVID-19 PFIZER VACCINE 2021-01-19 00:00:00 Completed [facility] SARS-COV-2 COVID-19 PFIZER VACCINE 2021-01-19 00:00:00 Completed [facility] SARS-COV-2 COVID-19 PFIZER VACCINE 2021-01-19 00:00:00 Completed [facility] SARS-COV-2 COVID-19 PFIZER VACCINE 2021-01-19 00:00:00 Completed [facility] SARS-COV-2 COVID-19 PFIZER VACCINE 2021-01-19 00:00:00 Completed [facility] Influenza Virus Vaccine Quad .5 mL IM 6+ MO 2021-01-02 00:00:00 Completed [facility] Influenza Virus Vaccine Quad .5 mL IM 6+ MO 2021-01-02 00:00:00 Completed [facility] Influenza Virus Vaccine Quad .5 mL IM 6+ MO 2021-01-02 00:00:00 Completed [facility] Influenza Virus Vaccine Quad .5 mL IM 6+ MO 2021-01-02 00:00:00 Completed [facility] Influenza Virus Vaccine Quad .5 mL IM 6+ MO 2021-01-02 00:00:00 Completed [facility] Influenza Virus Vaccine Quad .5 mL IM 6+ MO 2021-01-02 00:00:00 Completed [facility] Influenza Virus Vaccine Quad .5 mL IM 6+ MO 2021-01-02 00:00:00 Completed [facility] Influenza Virus Vaccine Quad .5 mL IM 6+ MO 2021-01-02 00:00:00 Completed [facility] Influenza Virus Vaccine Quad .5 mL IM 6+ MO 2021-01-02 00:00:00 Completed [facility] Influenza Virus Vaccine Quad .5 mL IM 6+ MO 2021-01-02 00:00:00 Completed [facility] Influenza Virus Vaccine Quad .5 mL IM 6+ MO 2021-01-02 00:00:00 Completed [facility] Influenza Virus Vaccine Quad .5 mL IM 6+ MO 2021-01-02 00:00:00 Completed [facility] Influenza Virus Vaccine Quad .5 mL IM 6+ MO 2021-01-02 00:00:00 Completed [facility] Influenza Virus Vaccine Quad .5 mL IM 6+ MO 2021-01-02 00:00:00 Completed [facility] Influenza Virus Vaccine Quad .5 mL IM 6+ MO 2021-01-02 00:00:00 Completed [facility] Influenza Virus Vaccine Quad .5 mL IM 6+ MO 2021-01-02 00:00:00 Completed [facility] Influenza Virus Vaccine Quad .5 mL IM 6+ MO 2021-01-02 00:00:00 Completed [facility] Influenza Virus Vaccine Quad .5 mL IM 6+ MO 2021-01-02 00:00:00 Completed [facility] Influenza Virus Vaccine Quad .5 mL IM 6+ MO 2021-01-02 00:00:00 Completed [facility] Influenza Virus Vaccine Quad .5 mL IM 6+ MO 2021-01-02 00:00:00 Completed [facility] Influenza Virus Vaccine Quad .5 mL IM 6+ MO 2021-01-02 00:00:00 Completed [facility] Influenza Virus Vaccine Quad .5 mL IM 6+ MO 2021-01-02 00:00:00 Completed [facility] Influenza Virus Vaccine Quad .5 mL IM 6+ MO 2021-01-02 00:00:00 Completed [facility] Influenza Virus Vaccine Quad .5 mL IM 6+ MO 2021-01-02 00:00:00 Completed [facility] Influenza Virus Vaccine Quad .5 mL IM 6+ MO 2021-01-02 00:00:00 Completed [facility] Influenza Virus Vaccine Quad .5 mL IM 6+ MO 2021-01-02 00:00:00 Completed [facility] Influenza Virus Vaccine Quad .5 mL IM 6+ MO 2021-01-02 00:00:00 Completed [facility] Influenza Virus Vaccine Quad .5 mL IM 6+ MO 2021-01-02 00:00:00 Completed [facility] Influenza Virus Vaccine Quad .5 mL IM 6+ MO 2021-01-02 00:00:00 Completed [facility] Influenza Virus Vaccine Quad .5 mL IM 6+ MO 2021-01-02 00:00:00 Completed [facility] Influenza Virus Vaccine Quad .5 mL IM 6+ MO 2021-01-02 00:00:00 Completed [facility] Influenza Virus Vaccine Quad .5 mL IM 6+ MO 2021-01-02 00:00:00 Completed [facility] Influenza Virus Vaccine Quad .5 mL IM 6+ MO 2021-01-02 00:00:00 Completed [facility] Influenza Virus Vaccine Quad .5 mL IM 6+ MO 2021-01-02 00:00:00 Completed [facility] Influenza Virus Vaccine Quad .5 mL IM 6+ MO 2021-01-02 00:00:00 Completed [facility] Influenza Virus Vaccine Quad .5 mL IM 6+ MO 2021-01-02 00:00:00 Completed [facility] Influenza Virus Vaccine Quad .5 mL IM 6+ MO 2021-01-02 00:00:00 Completed [facility] Influenza Virus Vaccine Quad .5 mL IM 6+ MO 2021-01-02 00:00:00 Completed [facility] Influenza Virus Vaccine Quad .5 mL IM 6+ MO 2021-01-02 00:00:00 Completed [facility] Influenza Virus Vaccine Quad .5 mL IM 6+ MO 2021-01-02 00:00:00 Completed [facility] Influenza Virus Vaccine Quad .5 mL IM 6+ MO 2021-01-02 00:00:00 Completed [facility] Influenza Virus Vaccine Quad .5 mL IM 6+ MO 2021-01-02 00:00:00 Completed [facility] Influenza Virus Vaccine Quad .5 mL IM 6+ MO 2021-01-02 00:00:00 Completed [facility] Influenza Virus Vaccine Quad .5 mL IM 6+ MO 2021-01-02 00:00:00 Completed [facility] Influenza Virus Vaccine Quad .5 mL IM 6+ MO 2021-01-02 00:00:00 Completed [facility] Influenza Virus Vaccine Quad .5 mL IM 6+ MO 2021-01-02 00:00:00 Completed [facility] Influenza Virus Vaccine Quad .5 mL IM 6+ MO 2021-01-02 00:00:00 Completed [facility] Influenza Virus Vaccine Quad .5 mL IM 6+ MO 2021-01-02 00:00:00 Completed [facility] Influenza Virus Vaccine Quad .5 mL IM 6+ MO 2021-01-02 00:00:00 Completed [facility] Influenza Virus Vaccine Quad .5 mL IM 6+ MO 2021-01-02 00:00:00 Completed [facility] Influenza Virus Vaccine Quad .5 mL IM 6+ MO 2021-01-02 00:00:00 Completed [facility] Influenza Virus Vaccine Quad .5 mL IM 6+ MO 2021-01-02 00:00:00 Completed [facility] Influenza Virus Vaccine Quad .5 mL IM 6+ MO 2021-01-02 00:00:00 Completed [facility] Influenza Virus Vaccine Quad .5 mL IM 6+ MO 2021-01-02 00:00:00 Completed [facility] Influenza Virus Vaccine Quad .5 mL IM 6+ MO 2021-01-02 00:00:00 Completed [facility] Influenza Virus Vaccine Quad .5 mL IM 6+ MO 2021-01-02 00:00:00 Completed [facility] Influenza Virus Vaccine Quad .5 mL IM 6+ MO 2021-01-02 00:00:00 Completed [facility] Influenza Virus Vaccine Quad .5 mL IM 6+ MO 2021-01-02 00:00:00 Completed [facility] Influenza Virus Vaccine Quad .5 mL IM 6+ MO 2021-01-02 00:00:00 Completed [facility] Influenza Virus Vaccine Quad .5 mL IM 6+ MO 2021-01-02 00:00:00 Completed [facility] Influenza Virus Vaccine Quad .5 mL IM 6+ MO 2021-01-02 00:00:00 Completed [facility] Influenza Virus Vaccine Quad .5 mL IM 6+ MO 2021-01-02 00:00:00 Completed [facility] Influenza Virus Vaccine Quad .5 mL IM 6+ MO 2021-01-02 00:00:00 Completed [facility] Influenza Virus Vaccine Quad .5 mL IM 6+ MO 2021-01-02 00:00:00 Completed [facility] Influenza Virus Vaccine Quad .5 mL IM 6+ MO 2021-01-02 00:00:00 Completed [facility] Influenza Virus Vaccine Quad .5 mL IM 6+ MO 2021-01-02 00:00:00 Completed [facility] Influenza Virus Vaccine Quad .5 mL IM 6+ MO 2021-01-02 00:00:00 Completed [facility] Influenza Virus Vaccine Quad .5 mL IM 6+ MO 2021-01-02 00:00:00 Completed [facility] Influenza Virus Vaccine Quad .5 mL IM 6+ MO 2021-01-02 00:00:00 Completed [facility] Influenza Virus Vaccine Quad .5 mL IM 6+ MO 2021-01-02 00:00:00 Completed [facility] Influenza Virus Vaccine Quad .5 mL IM 6+ MO 2021-01-02 00:00:00 Completed [facility] Influenza Virus Vaccine Quad .5 mL IM 6+ MO 2021-01-02 00:00:00 Completed [facility] Influenza Virus Vaccine Quad .5 mL IM 6+ MO 2021-01-02 00:00:00 Completed [facility] Influenza Virus Vaccine Quad .5 mL IM 6+ MO 2021-01-02 00:00:00 Completed [facility] Influenza Virus Vaccine Quad .5 mL IM 6+ MO 2021-01-02 00:00:00 Completed [facility] Influenza Virus Vaccine Quad .5 mL IM 6+ MO (FLUZONE/FLULAVAL/F LUARIX) 2021-01-02 00:00:00 Completed [facility] Influenza Virus Vaccine Quad .5 mL IM 6+ MO (FLUZONE/FLULAVAL/F LUARIX) 2021-01-02 00:00:00 Completed [facility] Influenza Virus Vaccine Quad .5 mL IM 6+ MO (FLUZONE/FLULAVAL/F LUARIX) 2021-01-02 00:00:00 Completed [facility] Influenza Virus Vaccine Quad .5 mL IM 6+ MO (FLUZONE/FLULAVAL/F LUARIX) 2021-01-02 00:00:00 Completed Influenza Virus Vaccine Quad .5 mL IM 6+ MO (FLUZONE/FLULAVAL/F LUARIX) 2021-01-02 00:00:00 Completed Influenza Virus Vaccine Quad .5 mL IM 6+ MO (FLUZONE/FLULAVAL/F LUARIX) 2021-01-02 00:00:00 Completed Influenza Virus Vaccine Quad .5 mL IM 6+ MO (FLUZONE/FLULAVAL/F LUARIX) 2021-01-02 00:00:00 Completed Influenza Virus Vaccine Quad .5 mL IM 6+ MO (FLUZONE/FLULAVAL/F LUARIX) 2021-01-02 00:00:00 Completed Influenza Virus Vaccine Quad .5 mL IM 6+ MO (FLUZONE/FLULAVAL/F LUARIX) 2021-01-02 00:00:00 Completed Influenza Virus Vaccine Quad .5 mL IM 6+ MO (FLUZONE/FLULAVAL/F LUARIX) 2021-01-02 00:00:00 Completed Influenza Virus Vaccine Quad .5 mL IM 6+ MO (FLUZONE/FLULAVAL/F LUARIX) 2021-01-02 00:00:00 Completed Influenza Virus Vaccine Quad .5 mL IM 6+ MO (FLUZONE/FLULAVAL/F LUARIX) 2021-01-02 00:00:00 Completed Influenza Virus Vaccine Quad .5 mL IM 6+ MO (FLUZONE/FLULAVAL/F LUARIX) 2021-01-02 00:00:00 Completed Pneumococcal 13 Conjugate, PCV13 (Prevnar 13) 2020-11-30 00:00:00 Completed [facility] Pneumococcal 13 Conjugate, PCV13 (Prevnar 13) 2020-11-30 00:00:00 Completed [facility] Pneumococcal 13 Conjugate, PCV13 (Prevnar 13) 2020-11-30 00:00:00 Completed [facility] Pneumococcal 13 Conjugate, PCV13 (Prevnar 13) 2020-11-30 00:00:00 Completed [facility] Pneumococcal 13 Conjugate, PCV13 (Prevnar 13) 2020-11-30 00:00:00 Completed [facility] Pneumococcal 13 Conjugate, PCV13 (Prevnar 13) 2020-11-30 00:00:00 Completed [facility] Pneumococcal 13 Conjugate, PCV13 (Prevnar 13) 2020-11-30 00:00:00 Completed [facility] Pneumococcal 13 Conjugate, PCV13 (Prevnar 13) 2020-11-30 00:00:00 Completed [facility] Pneumococcal 13 Conjugate, PCV13 (Prevnar 13) 2020-11-30 00:00:00 Completed [facility] Pneumococcal 13 Conjugate, PCV13 (Prevnar 13) 2020-11-30 00:00:00 Completed [facility] Pneumococcal 13 Conjugate, PCV13 (Prevnar 13) 2020-11-30 00:00:00 Completed [facility] Pneumococcal 13 Conjugate, PCV13 (Prevnar 13) 2020-11-30 00:00:00 Completed [facility] Pneumococcal 13 Conjugate, PCV13 (Prevnar 13) 2020-11-30 00:00:00 Completed [facility] Pneumococcal 13 Conjugate, PCV13 (Prevnar 13) 2020-11-30 00:00:00 Completed [facility] Pneumococcal 13 Conjugate, PCV13 (Prevnar 13) 2020-11-30 00:00:00 Completed [facility] Pneumococcal 13 Conjugate, PCV13 (Prevnar 13) 2020-11-30 00:00:00 Completed [facility] Pneumococcal 13 Conjugate, PCV13 (Prevnar 13) 2020-11-30 00:00:00 Completed [facility] Pneumococcal 13 Conjugate, PCV13 (Prevnar 13) 2020-11-30 00:00:00 Completed [facility] Pneumococcal 13 Conjugate, PCV13 (Prevnar 13) 2020-11-30 00:00:00 Completed [facility] Pneumococcal 13 Conjugate, PCV13 (Prevnar 13) 2020-11-30 00:00:00 Completed [facility] Pneumococcal 13 Conjugate, PCV13 (Prevnar 13) 2020-11-30 00:00:00 Completed [facility] Pneumococcal 13 Conjugate, PCV13 (Prevnar 13) 2020-11-30 00:00:00 Completed [facility] Pneumococcal 13 Conjugate, PCV13 (Prevnar 13) 2020-11-30 00:00:00 Completed [facility] Pneumococcal 13 Conjugate, PCV13 (Prevnar 13) 2020-11-30 00:00:00 Completed [facility] Pneumococcal 13 Conjugate, PCV13 (Prevnar 13) 2020-11-30 00:00:00 Completed [facility] Pneumococcal 13 Conjugate, PCV13 (Prevnar 13) 2020-11-30 00:00:00 Completed [facility] Pneumococcal 13 Conjugate, PCV13 (Prevnar 13) 2020-11-30 00:00:00 Completed [facility] Pneumococcal 13 Conjugate, PCV13 (Prevnar 13) 2020-11-30 00:00:00 Completed [facility] Pneumococcal 13 Conjugate, PCV13 (Prevnar 13) 2020-11-30 00:00:00 Completed [facility] Pneumococcal 13 Conjugate, PCV13 (Prevnar 13) 2020-11-30 00:00:00 Completed [facility] Pneumococcal 13 Conjugate, PCV13 (Prevnar 13) 2020-11-30 00:00:00 Completed [facility] Pneumococcal 13 Conjugate, PCV13 (Prevnar 13) 2020-11-30 00:00:00 Completed [facility] Pneumococcal 13 Conjugate, PCV13 (Prevnar 13) 2020-11-30 00:00:00 Completed [facility] Pneumococcal 13 Conjugate, PCV13 (Prevnar 13) 2020-11-30 00:00:00 Completed [facility] Pneumococcal 13 Conjugate, PCV13 (Prevnar 13) 2020-11-30 00:00:00 Completed [facility] Pneumococcal 13 Conjugate, PCV13 (Prevnar 13) 2020-11-30 00:00:00 Completed [facility] Pneumococcal 13 Conjugate, PCV13 (Prevnar 13) 2020-11-30 00:00:00 Completed [facility] Pneumococcal 13 Conjugate, PCV13 (Prevnar 13) 2020-11-30 00:00:00 Completed [facility] Pneumococcal 13 Conjugate, PCV13 (Prevnar 13) 2020-11-30 00:00:00 Completed [facility] Pneumococcal 13 Conjugate, PCV13 (Prevnar 13) 2020-11-30 00:00:00 Completed [facility] Pneumococcal 13 Conjugate, PCV13 (Prevnar 13) 2020-11-30 00:00:00 Completed [facility] Pneumococcal 13 Conjugate, PCV13 (Prevnar 13) 2020-11-30 00:00:00 Completed [facility] Pneumococcal 13 Conjugate, PCV13 (Prevnar 13) 2020-11-30 00:00:00 Completed [facility] Pneumococcal 13 Conjugate, PCV13 (Prevnar 13) 2020-11-30 00:00:00 Completed [facility] Pneumococcal 13 Conjugate, PCV13 (Prevnar 13) 2020-11-30 00:00:00 Completed [facility] Pneumococcal 13 Conjugate, PCV13 (Prevnar 13) 2020-11-30 00:00:00 Completed [facility] Pneumococcal 13 Conjugate, PCV13 (Prevnar 13) 2020-11-30 00:00:00 Completed [facility] Pneumococcal 13 Conjugate, PCV13 (Prevnar 13) 2020-11-30 00:00:00 Completed [facility] Pneumococcal 13 Conjugate, PCV13 (Prevnar 13) 2020-11-30 00:00:00 Completed [facility] Pneumococcal 13 Conjugate, PCV13 (Prevnar 13) 2020-11-30 00:00:00 Completed [facility] Pneumococcal 13 Conjugate, PCV13 (Prevnar 13) 2020-11-30 00:00:00 [facility] [facility] Pneumococcal 13 Conjugate, PCV13 (Prevnar 13) 2020-11-30 00:00:00 Completed [facility] Pneumococcal 13 Conjugate, PCV13 (Prevnar 13) 2020-11-30 00:00:00 Completed [facility] Pneumococcal 13 Conjugate, PCV13 (Prevnar 13) 2020-11-30 00:00:00 Completed [facility] Pneumococcal 13 Conjugate, PCV13 (Prevnar 13) 2020-11-30 00:00:00 Completed [facility] Pneumococcal 13 Conjugate, PCV13 (Prevnar 13) 2020-11-30 00:00:00 Completed [facility] Pneumococcal 13 Conjugate, PCV13 (Prevnar 13) 2020-11-30 00:00:00 Completed [facility] Pneumococcal 13 Conjugate, PCV13 (Prevnar 13) 2020-11-30 00:00:00 Completed [facility] Pneumococcal 13 Conjugate, PCV13 (Prevnar 13) 2020-11-30 00:00:00 Completed [facility] Pneumococcal 13 Conjugate, PCV13 (Prevnar 13) 2020-11-30 00:00:00 Completed [facility] Pneumococcal 13 Conjugate, PCV13 (Prevnar 13) 2020-11-30 00:00:00 Completed [facility] Pneumococcal 13 Conjugate, PCV13 (Prevnar 13) 2020-11-30 00:00:00 Completed [facility] Pneumococcal 13 Conjugate, PCV13 (Prevnar 13) 2020-11-30 00:00:00 Completed [facility] Pneumococcal 13 Conjugate, PCV13 (Prevnar 13) 2020-11-30 00:00:00 Completed [facility] Pneumococcal 13 Conjugate, PCV13 (Prevnar 13) 2020-11-30 00:00:00 Completed [facility] Pneumococcal 13 Conjugate, PCV13 (Prevnar 13) 2020-11-30 00:00:00 Completed [facility] Pneumococcal 13 Conjugate, PCV13 (Prevnar 13) 2020-11-30 00:00:00 Completed [facility] Pneumococcal 13 Conjugate, PCV13 (Prevnar 13) 2020-11-30 00:00:00 Completed [facility] Pneumococcal 13 Conjugate, PCV13 (Prevnar 13) 2020-11-30 00:00:00 Completed [facility] Pneumococcal 13 Conjugate, PCV13 (Prevnar 13) 2020-11-30 00:00:00 Completed [facility] Pneumococcal 13 Conjugate, PCV13 (Prevnar 13) 2020-11-30 00:00:00 Completed [facility] Pneumococcal 13 Conjugate, PCV13 (Prevnar 13) 2020-11-30 00:00:00 Completed [facility] Pneumococcal 13 Conjugate, PCV13 (Prevnar 13) 2020-11-30 00:00:00 Completed [facility] Pneumococcal 13 Conjugate, PCV13 (Prevnar 13) 2020-11-30 00:00:00 Completed [facility] Pneumococcal 13 Conjugate, PCV13 (Prevnar 13) 2020-11-30 00:00:00 Completed [facility] Pneumococcal 13 Conjugate, PCV13 (Prevnar 13) 2020-11-30 00:00:00 Completed [facility] Pneumococcal 13 Conjugate, PCV13 (Prevnar 13) 2020-11-30 00:00:00 Completed [facility] Pneumococcal 13 Conjugate, PCV13 (Prevnar 13) 2020-11-30 00:00:00 Completed [facility] Pneumococcal 13 Conjugate, PCV13 (Prevnar 13) 2020-11-30 00:00:00 Completed Pneumococcal 13 Conjugate, PCV13 (Prevnar 13) 2020-11-30 00:00:00 Completed Pneumococcal 13 Conjugate, PCV13 (Prevnar 13) 2020-11-30 00:00:00 Completed Pneumococcal 13 Conjugate, PCV13 (Prevnar 13) 2020-11-30 00:00:00 Completed Pneumococcal 13 Conjugate, PCV13 (Prevnar 13) 2020-11-30 00:00:00 Completed Pneumococcal 13 Conjugate, PCV13 (Prevnar 13) 2020-11-30 00:00:00 Completed Pneumococcal 13 Conjugate, PCV13 (Prevnar 13) 2020-11-30 00:00:00 Completed Pneumococcal 13 Conjugate, PCV13 (Prevnar 13) 2020-11-30 00:00:00 Completed Pneumococcal 13 Conjugate, PCV13 (Prevnar 13) 2020-11-30 00:00:00 Completed Pneumococcal 13 Conjugate, PCV13 (Prevnar 13) 2020-11-30 00:00:00 Completed [employer] [facility] Vaccine Quad .5 mL IM 6+ MO 2019-10-14 00:00:00 Completed [facility] Influenza Virus Vaccine Quad .5 mL IM 6+ MO 2019-10-14 00:00:00 Completed [facility] Influenza Virus Vaccine Quad .5 mL IM 6+ MO 2019-10-14 00:00:00 Completed [facility] Influenza Virus Vaccine Quad .5 mL IM 6+ MO 2019-10-14 00:00:00 Completed [facility] Influenza Virus Vaccine Quad .5 mL IM 6+ MO 2019-10-14 00:00:00 Completed [facility] Influenza Virus Vaccine Quad .5 mL IM 6+ MO 2019-10-14 00:00:00 Completed [facility] Influenza Virus Vaccine Quad .5 mL IM 6+ MO 2019-10-14 00:00:00 Completed [facility] Influenza Virus Vaccine Quad .5 mL IM 6+ MO 2019-10-14 00:00:00 Completed [facility] Influenza Virus Vaccine Quad .5 mL IM 6+ MO 2019-10-14 00:00:00 Completed [facility] Influenza Virus Vaccine Quad .5 mL IM 6+ MO 2019-10-14 00:00:00 Completed [facility] Influenza Virus Vaccine Quad .5 mL IM 6+ MO 2019-10-14 00:00:00 Completed [facility] Influenza Virus Vaccine Quad .5 mL IM 6+ MO 2019-10-14 00:00:00 Completed [facility] Influenza Virus Vaccine Quad .5 mL IM 6+ MO 2019-10-14 00:00:00 Completed [facility] Influenza Virus Vaccine Quad .5 mL IM 6+ MO 2019-10-14 00:00:00 Completed [facility] Influenza Virus Vaccine Quad .5 mL IM 6+ MO 2019-10-14 00:00:00 Completed [facility] Influenza Virus Vaccine Quad .5 mL IM 6+ MO 2019-10-14 00:00:00 Completed [facility] Influenza Virus Vaccine Quad .5 mL IM 6+ MO 2019-10-14 00:00:00 Completed [facility] Influenza Virus Vaccine Quad .5 mL IM 6+ MO 2019-10-14 00:00:00 Completed [facility] Influenza Virus Vaccine Quad .5 mL IM 6+ MO 2019-10-14 00:00:00 Completed [facility] Influenza Virus Vaccine Quad .5 mL IM 6+ MO 2019-10-14 00:00:00 Completed [facility] Influenza Virus Vaccine Quad .5 mL IM 6+ MO 2019-10-14 00:00:00 Completed [facility] Influenza Virus Vaccine Quad .5 mL IM 6+ MO 2019-10-14 00:00:00 Completed [facility] Influenza Virus Vaccine Quad .5 mL IM 6+ MO 2019-10-14 00:00:00 Completed [facility] Influenza Virus Vaccine Quad .5 mL IM 6+ MO 2019-10-14 00:00:00 Completed [facility] Influenza Virus Vaccine Quad .5 mL IM 6+ MO 2019-10-14 00:00:00 Completed [facility] Influenza Virus Vaccine Quad .5 mL IM 6+ MO 2019-10-14 00:00:00 Completed [facility] Influenza Virus Vaccine Quad .5 mL IM 6+ MO 2019-10-14 00:00:00 Completed [facility] Influenza Virus Vaccine Quad .5 mL IM 6+ MO 2019-10-14 00:00:00 Completed [facility] Influenza Virus Vaccine Quad .5 mL IM 6+ MO 2019-10-14 00:00:00 Completed [facility] Influenza Virus Vaccine Quad .5 mL IM 6+ MO 2019-10-14 00:00:00 Completed [facility] Influenza Virus Vaccine Quad .5 mL IM 6+ MO 2019-10-14 00:00:00 Completed [facility] Influenza Virus Vaccine Quad .5 mL IM 6+ MO 2019-10-14 00:00:00 Completed [facility] Influenza Virus Vaccine Quad .5 mL IM 6+ MO 2019-10-14 00:00:00 Completed [facility] Influenza Virus Vaccine Quad .5 mL IM 6+ MO 2019-10-14 00:00:00 Completed [facility] Influenza Virus Vaccine Quad .5 mL IM 6+ MO 2019-10-14 00:00:00 Completed [facility] Influenza Virus Vaccine Quad .5 mL IM 6+ MO 2019-10-14 00:00:00 Completed [facility] Influenza Virus Vaccine Quad .5 mL IM 6+ MO 2019-10-14 00:00:00 Completed [facility] Influenza Virus Vaccine Quad .5 mL IM 6+ MO 2019-10-14 00:00:00 Completed [facility] Influenza Virus Vaccine Quad .5 mL IM 6+ MO 2019-10-14 00:00:00 Completed [facility] Influenza Virus Vaccine Quad .5 mL IM 6+ MO 2019-10-14 00:00:00 Completed [facility] Influenza Virus Vaccine Quad .5 mL IM 6+ MO 2019-10-14 00:00:00 Completed [facility] Influenza Virus Vaccine Quad .5 mL IM 6+ MO 2019-10-14 00:00:00 Completed [facility] Influenza Virus Vaccine Quad .5 mL IM 6+ MO 2019-10-14 00:00:00 Completed [facility] Influenza Virus Vaccine Quad .5 mL IM 6+ MO 2019-10-14 00:00:00 Completed [facility] Influenza Virus Vaccine Quad .5 mL IM 6+ MO 2019-10-14 00:00:00 Completed [facility] Influenza Virus Vaccine Quad .5 mL IM 6+ MO 2019-10-14 00:00:00 Completed [facility] Influenza Virus Vaccine Quad .5 mL IM 6+ MO 2019-10-14 00:00:00 Completed [facility] Influenza Virus Vaccine Quad .5 mL IM 6+ MO 2019-10-14 00:00:00 Completed [facility] Influenza Virus Vaccine Quad .5 mL IM 6+ MO 2019-10-14 00:00:00 Completed [facility] Influenza Virus Vaccine Quad .5 mL IM 6+ MO 2019-10-14 00:00:00 Completed [facility] Influenza Virus Vaccine Quad .5 mL IM 6+ MO 2019-10-14 00:00:00 Completed [facility] Influenza Virus Vaccine Quad .5 mL IM 6+ MO 2019-10-14 00:00:00 Completed [facility] Influenza Virus Vaccine Quad .5 mL IM 6+ MO 2019-10-14 00:00:00 Completed [facility] Influenza Virus Vaccine Quad .5 mL IM 6+ MO 2019-10-14 00:00:00 Completed [facility] Influenza Virus Vaccine Quad .5 mL IM 6+ MO 2019-10-14 00:00:00 Completed [facility] Influenza Virus Vaccine Quad .5 mL IM 6+ MO 2019-10-14 00:00:00 Completed [facility] Influenza Virus Vaccine Quad .5 mL IM 6+ MO 2019-10-14 00:00:00 Completed [facility] Influenza Virus Vaccine Quad .5 mL IM 6+ MO 2019-10-14 00:00:00 Completed [facility] Influenza Virus Vaccine Quad .5 mL IM 6+ MO 2019-10-14 00:00:00 Completed [facility] Influenza Virus Vaccine Quad .5 mL IM 6+ MO 2019-10-14 00:00:00 Completed [facility] Influenza Virus Vaccine Quad .5 mL IM 6+ MO 2019-10-14 00:00:00 Completed [facility] Influenza Virus Vaccine Quad .5 mL IM 6+ MO 2019-10-14 00:00:00 Completed [facility] Influenza Virus Vaccine Quad .5 mL IM 6+ MO 2019-10-14 00:00:00 Completed [facility] Influenza Virus Vaccine Quad .5 mL IM 6+ MO 2019-10-14 00:00:00 Completed [facility] Influenza Virus Vaccine Quad .5 mL IM 6+ MO 2019-10-14 00:00:00 Completed [facility] Influenza Virus Vaccine Quad .5 mL IM 6+ MO 2019-10-14 00:00:00 Completed [facility] Influenza Virus Vaccine Quad .5 mL IM 6+ MO 2019-10-14 00:00:00 Completed [facility] Influenza Virus Vaccine Quad .5 mL IM 6+ MO 2019-10-14 00:00:00 Completed [facility] Influenza Virus Vaccine Quad .5 mL IM 6+ MO 2019-10-14 00:00:00 Completed [facility] Influenza Virus Vaccine Quad .5 mL IM 6+ MO 2019-10-14 00:00:00 Completed [facility] Influenza Virus Vaccine Quad .5 mL IM 6+ MO 2019-10-14 00:00:00 Completed [facility] Influenza Virus Vaccine Quad .5 mL IM 6+ MO 2019-10-14 00:00:00 Completed [facility] Influenza Virus Vaccine Quad .5 mL IM 6+ MO 2019-10-14 00:00:00 Completed [facility] Influenza Virus Vaccine Quad .5 mL IM 6+ MO 2019-10-14 00:00:00 Completed [facility] Influenza Virus Vaccine Quad .5 mL IM 6+ MO 2019-10-14 00:00:00 Completed [facility] Influenza Virus Vaccine Quad .5 mL IM 6+ MO (FLUZONE/FLULAVAL/F LUARIX) 2019-10-14 00:00:00 Completed [facility] Influenza Virus Vaccine Quad .5 mL IM 6+ MO (FLUZONE/FLULAVAL/F LUARIX) 2019-10-14 00:00:00 Completed [facility] Influenza Virus Vaccine Quad .5 mL IM 6+ MO (FLUZONE/FLULAVAL/F LUARIX) 2019-10-14 00:00:00 Completed [facility] Influenza Virus Vaccine Quad .5 mL IM 6+ MO (FLUZONE/FLULAVAL/F LUARIX) 2019-10-14 00:00:00 Completed [facility] Influenza Virus Vaccine Quad .5 mL IM 6+ MO (FLUZONE/FLULAVAL/F LUARIX) 2019-10-14 00:00:00 Completed [facility] Influenza Virus Vaccine Quad .5 mL IM 6+ MO (FLUZONE/FLULAVAL/F LUARIX) 2019-10-14 00:00:00 Completed [facility] Influenza Virus Vaccine Quad .5 mL IM 6+ MO (FLUZONE/FLULAVAL/F LUARIX) 2019-10-14 00:00:00 Completed [facility] Influenza Virus Vaccine Quad .5 mL IM 6+ MO (FLUZONE/FLULAVAL/F LUARIX) 2019-10-14 00:00:00 Completed [facility] Influenza Virus Vaccine Quad .5 mL IM 6+ MO (FLUZONE/FLULAVAL/F LUARIX) 2019-10-14 00:00:00 Completed [facility] Influenza Virus Vaccine Quad .5 mL IM 6+ MO (FLUZONE/FLULAVAL/F LUARIX) 2019-10-14 00:00:00 Completed [facility] Influenza Virus Vaccine Quad .5 mL IM 6+ MO (FLUZONE/FLULAVAL/F LUARIX) 2019-10-14 00:00:00 Completed [facility] Influenza Virus Vaccine Quad .5 mL IM 6+ MO (FLUZONE/FLULAVAL/F LUARIX) 2019-10-14 00:00:00 Completed [facility] Influenza Virus Vaccine Quad .5 mL IM 6+ MO (FLUZONE/FLULAVAL/F LUARIX) 2019-10-14 00:00:00 Completed [facility] Influenza Virus Vaccine Quad .5 mL IM 6+ MO 2018-09-21 00:00:00 Completed [facility] Influenza Virus Vaccine Quad .5 mL IM 6+ MO 2018-09-21 00:00:00 Completed [facility] Influenza Virus Vaccine Quad .5 mL IM 6+ MO 2018-09-21 00:00:00 Completed [facility] Influenza Virus Vaccine Quad .5 mL IM 6+ MO 2018-09-21 00:00:00 Completed [facility] Influenza Virus Vaccine Quad .5 mL IM 6+ MO 2018-09-21 00:00:00 Completed [facility] Influenza Virus Vaccine Quad .5 mL IM 6+ MO 2018-09-21 00:00:00 Completed [facility] Influenza Virus Vaccine Quad .5 mL IM 6+ MO 2018-09-21 00:00:00 Completed [facility] Influenza Virus Vaccine Quad .5 mL IM 6+ MO 2018-09-21 00:00:00 Completed [facility] Influenza Virus Vaccine Quad .5 mL IM 6+ MO 2018-09-21 00:00:00 Completed [facility] Influenza Virus Vaccine Quad .5 mL IM 6+ MO 2018-09-21 00:00:00 Completed [facility] Influenza Virus Vaccine Quad .5 mL IM 6+ MO 2018-09-21 00:00:00 Completed [facility] Influenza Virus Vaccine Quad .5 mL IM 6+ MO 2018-09-21 00:00:00 Completed [facility] Influenza Virus Vaccine Quad .5 mL IM 6+ MO 2018-09-21 00:00:00 Completed [facility] Influenza Virus Vaccine Quad .5 mL IM 6+ MO 2018-09-21 00:00:00 Completed [facility] Influenza Virus Vaccine Quad .5 mL IM 6+ MO 2018-09-21 00:00:00 Completed [facility] Influenza Virus Vaccine Quad .5 mL IM 6+ MO 2018-09-21 00:00:00 Completed [facility] Influenza Virus Vaccine Quad .5 mL IM 6+ MO 2018-09-21 00:00:00 Completed [facility] Influenza Virus Vaccine Quad .5 mL IM 6+ MO 2018-09-21 00:00:00 Completed [facility] Influenza Virus Vaccine Quad .5 mL IM 6+ MO 2018-09-21 00:00:00 Completed [facility] Influenza Virus Vaccine Quad .5 mL IM 6+ MO 2018-09-21 00:00:00 Completed [facility] Influenza Virus Vaccine Quad .5 mL IM 6+ MO 2018-09-21 00:00:00 Completed [facility] Influenza Virus Vaccine Quad .5 mL IM 6+ MO 2018-09-21 00:00:00 Completed [facility] Influenza Virus Vaccine Quad .5 mL IM 6+ MO 2018-09-21 00:00:00 Completed [facility] Influenza Virus Vaccine Quad .5 mL IM 6+ MO 2018-09-21 00:00:00 Completed [facility] Influenza Virus Vaccine Quad .5 mL IM 6+ MO 2018-09-21 00:00:00 Completed [facility] Influenza Virus Vaccine Quad .5 mL IM 6+ MO 2018-09-21 00:00:00 Completed [facility] Influenza Virus Vaccine Quad .5 mL IM 6+ MO 2018-09-21 00:00:00 Completed [facility] Influenza Virus Vaccine Quad .5 mL IM 6+ MO 2018-09-21 00:00:00 Completed [facility] Influenza Virus Vaccine Quad .5 mL IM 6+ MO 2018-09-21 00:00:00 Completed [facility] Influenza Virus Vaccine Quad .5 mL IM 6+ MO 2018-09-21 00:00:00 Completed [facility] Influenza Virus Vaccine Quad .5 mL IM 6+ MO 2018-09-21 00:00:00 Completed [facility] Influenza Virus Vaccine Quad .5 mL IM 6+ MO 2018-09-21 00:00:00 Completed [facility] Influenza Virus Vaccine Quad .5 mL IM 6+ MO 2018-09-21 00:00:00 Completed [facility] Influenza Virus Vaccine Quad .5 mL IM 6+ MO 2018-09-21 00:00:00 Completed [facility] Influenza Virus Vaccine Quad .5 mL IM 6+ MO 2018-09-21 00:00:00 Completed [facility] Influenza Virus Vaccine Quad .5 mL IM 6+ MO 2018-09-21 00:00:00 Completed [facility] Influenza Virus Vaccine Quad .5 mL IM 6+ MO 2018-09-21 00:00:00 Completed [facility] Influenza Virus Vaccine Quad .5 mL IM 6+ MO 2018-09-21 00:00:00 Completed [facility] Influenza Virus Vaccine Quad .5 mL IM 6+ MO 2018-09-21 00:00:00 Completed [facility] Influenza Virus Vaccine Quad .5 mL IM 6+ MO 2018-09-21 00:00:00 Completed [facility] Influenza Virus Vaccine Quad .5 mL IM 6+ MO 2018-09-21 00:00:00 Completed [facility] Influenza Virus Vaccine Quad .5 mL IM 6+ MO 2018-09-21 00:00:00 Completed [facility] Influenza Virus Vaccine Quad .5 mL IM 6+ MO 2018-09-21 00:00:00 Completed [facility] Influenza Virus Vaccine Quad .5 mL IM 6+ MO 2018-09-21 00:00:00 Completed [facility] Influenza Virus Vaccine Quad .5 mL IM 6+ MO 2018-09-21 00:00:00 Completed [facility] Influenza Virus Vaccine Quad .5 mL IM 6+ MO 2018-09-21 00:00:00 Completed [facility] Influenza Virus Vaccine Quad .5 mL IM 6+ MO 2018-09-21 00:00:00 Completed [facility] Influenza Virus Vaccine Quad .5 mL IM 6+ MO 2018-09-21 00:00:00 Completed [facility] Influenza Virus Vaccine Quad .5 mL IM 6+ MO 2018-09-21 00:00:00 Completed [facility] Influenza Virus Vaccine Quad .5 mL IM 6+ MO 2018-09-21 00:00:00 Completed [facility] Influenza Virus Vaccine Quad .5 mL IM 6+ MO 2018-09-21 00:00:00 Completed [facility] Influenza Virus Vaccine Quad .5 mL IM 6+ MO 2018-09-21 00:00:00 Completed [facility] Influenza Virus Vaccine Quad .5 mL IM 6+ MO 2018-09-21 00:00:00 Completed [facility] Influenza Virus Vaccine Quad .5 mL IM 6+ MO 2018-09-21 00:00:00 Completed [facility] Influenza Virus Vaccine Quad .5 mL IM 6+ MO 2018-09-21 00:00:00 Completed [facility] Influenza Virus Vaccine Quad .5 mL IM 6+ MO 2018-09-21 00:00:00 Completed [facility] Influenza Virus Vaccine Quad .5 mL IM 6+ MO 2018-09-21 00:00:00 Completed [facility] Influenza Virus Vaccine Quad .5 mL IM 6+ MO 2018-09-21 00:00:00 Completed [facility] Influenza Virus Vaccine Quad .5 mL IM 6+ MO 2018-09-21 00:00:00 Completed [facility] Influenza Virus Vaccine Quad .5 mL IM 6+ MO 2018-09-21 00:00:00 Completed [facility] Influenza Virus Vaccine Quad .5 mL IM 6+ MO 2018-09-21 00:00:00 Completed [facility] Influenza Virus Vaccine Quad .5 mL IM 6+ MO 2018-09-21 00:00:00 Completed [facility] Influenza Virus Vaccine Quad .5 mL IM 6+ MO 2018-09-21 00:00:00 Completed [facility] Influenza Virus Vaccine Quad .5 mL IM 6+ MO 2018-09-21 00:00:00 Completed [facility] Influenza Virus Vaccine Quad .5 mL IM 6+ MO 2018-09-21 00:00:00 Completed [facility] Influenza Virus Vaccine Quad .5 mL IM 6+ MO 2018-09-21 00:00:00 Completed [facility] Influenza Virus Vaccine Quad .5 mL IM 6+ MO 2018-09-21 00:00:00 Completed [facility] Influenza Virus Vaccine Quad .5 mL IM 6+ MO 2018-09-21 00:00:00 Completed [facility] Influenza Virus Vaccine Quad .5 mL IM 6+ MO 2018-09-21 00:00:00 Completed [facility] Influenza Virus Vaccine Quad .5 mL IM 6+ MO 2018-09-21 00:00:00 Completed [facility] Influenza Virus Vaccine Quad .5 mL IM 6+ MO 2018-09-21 00:00:00 Completed [facility] Influenza Virus Vaccine Quad .5 mL IM 6+ MO 2018-09-21 00:00:00 Completed [facility] Influenza Virus Vaccine Quad .5 mL IM 6+ MO 2018-09-21 00:00:00 Completed [facility] Influenza Virus Vaccine Quad .5 mL IM 6+ MO 2018-09-21 00:00:00 Completed [facility] Influenza Virus Vaccine Quad .5 mL IM 6+ MO 2018-09-21 00:00:00 Completed [facility] Influenza Virus Vaccine Quad .5 mL IM 6+ MO (FLUZONE/FLULAVAL/F LUARIX) 2018-09-21 00:00:00 Completed [facility] Influenza Virus Vaccine Quad .5 mL IM 6+ MO (FLUZONE/FLULAVAL/F LUARIX) 2018-09-21 00:00:00 Completed [facility] Influenza Virus Vaccine Quad .5 mL IM 6+ MO (FLUZONE/FLULAVAL/F LUARIX) 2018-09-21 00:00:00 Completed [facility] Influenza Virus Vaccine Quad .5 mL IM 6+ MO (FLUZONE/FLULAVAL/F LUARIX) 2018-09-21 00:00:00 Completed [facility] Influenza Virus Vaccine Quad .5 mL IM 6+ MO (FLUZONE/FLULAVAL/F LUARIX) 2018-09-21 00:00:00 Completed [facility] Influenza Virus Vaccine Quad .5 mL IM 6+ MO (FLUZONE/FLULAVAL/F LUARIX) 2018-09-21 00:00:00 Completed [facility] Influenza Virus Vaccine Quad .5 mL IM 6+ MO (FLUZONE/FLULAVAL/F LUARIX) 2018-09-21 00:00:00 Completed [facility] Influenza Virus Vaccine Quad .5 mL IM 6+ MO (FLUZONE/FLULAVAL/F LUARIX) 2018-09-21 00:00:00 Completed [facility] Influenza Virus Vaccine Quad .5 mL IM 6+ MO (FLUZONE/FLULAVAL/F LUARIX) 2018-09-21 00:00:00 Completed [facility] Influenza Virus Vaccine Quad .5 mL IM 6+ MO (FLUZONE/FLULAVAL/F LUARIX) 2018-09-21 00:00:00 Completed [facility] Influenza Virus Vaccine Quad .5 mL IM 6+ MO (FLUZONE/FLULAVAL/F LUARIX) 2018-09-21 00:00:00 Completed [facility] Influenza Virus Vaccine Quad .5 mL IM 6+ MO (FLUZONE/FLULAVAL/F LUARIX) 2018-09-21 00:00:00 Completed [facility] Influenza Virus Vaccine Quad .5 mL IM 6+ MO (FLUZONE/FLULAVAL/F LUARIX) 2018-09-21 00:00:00 Completed [facility] Influenza Virus Vaccine Quad IM 3+ YRS 2017-09-10 00:00:00 Completed [facility] Influenza Virus Vaccine Quad IM 3+ YRS 2017-09-10 00:00:00 Completed [facility] Influenza Virus Vaccine Quad IM 3+ YRS 2017-09-10 00:00:00 Completed [facility] Influenza Virus Vaccine Quad IM 3+ YRS 2017-09-10 00:00:00 Completed [facility] Influenza Virus Vaccine Quad IM 3+ YRS 2017-09-10 00:00:00 Completed [facility] Influenza Virus Vaccine Quad IM 3+ YRS 2017-09-10 00:00:00 Completed [facility] Influenza Virus Vaccine Quad IM 3+ YRS 2017-09-10 00:00:00 Completed [facility] Influenza Virus Vaccine Quad IM 3+ YRS 2017-09-10 00:00:00 Completed [facility] Influenza Virus Vaccine Quad IM 3+ YRS 2017-09-10 00:00:00 Completed [facility] Influenza Virus Vaccine Quad IM 3+ YRS 2017-09-10 00:00:00 Completed [facility] Influenza Virus Vaccine Quad IM 3+ YRS 2017-09-10 00:00:00 Completed [facility] Influenza Virus Vaccine Quad IM 3+ YRS 2017-09-10 00:00:00 Completed [facility] Influenza Virus Vaccine Quad IM 3+ YRS 2017-09-10 00:00:00 Completed [facility] Influenza Virus Vaccine Quad IM 3+ YRS 2017-09-10 00:00:00 Completed [facility] Influenza Virus Vaccine Quad IM 3+ YRS 2017-09-10 00:00:00 Completed [facility] Influenza Virus Vaccine Quad IM 3+ YRS 2017-09-10 00:00:00 Completed [facility] Influenza Virus Vaccine Quad IM 3+ YRS 2017-09-10 00:00:00 Completed [facility] Influenza Virus Vaccine Quad IM 3+ YRS 2017-09-10 00:00:00 Completed [facility] Influenza Virus Vaccine Quad IM 3+ YRS 2017-09-10 00:00:00 Completed [facility] Influenza Virus Vaccine Quad IM 3+ YRS 2017-09-10 00:00:00 Completed [facility] Influenza Virus Vaccine Quad IM 3+ YRS 2017-09-10 00:00:00 Completed [facility] Influenza Virus Vaccine Quad IM 3+ YRS 2017-09-10 00:00:00 Completed [facility] Influenza Virus Vaccine Quad IM 3+ YRS 2017-09-10 00:00:00 Completed [facility] Influenza Virus Vaccine Quad IM 3+ YRS 2017-09-10 00:00:00 Completed [facility] Influenza Virus Vaccine Quad IM 3+ YRS 2017-09-10 00:00:00 Completed [facility] Influenza Virus Vaccine Quad IM 3+ YRS 2017-09-10 00:00:00 Completed [facility] Influenza Virus Vaccine Quad IM 3+ YRS 2017-09-10 00:00:00 Completed [facility] Influenza Virus Vaccine Quad IM 3+ YRS 2017-09-10 00:00:00 Completed [facility] Influenza Virus Vaccine Quad IM 3+ YRS 2017-09-10 00:00:00 Completed [facility] Influenza Virus Vaccine Quad IM 3+ YRS 2017-09-10 00:00:00 Completed [facility] Influenza Virus Vaccine Quad IM 3+ YRS 2017-09-10 00:00:00 Completed [facility] Influenza Virus Vaccine Quad IM 3+ YRS 2017-09-10 00:00:00 Completed [facility] Influenza Virus Vaccine Quad IM 3+ YRS 2017-09-10 00:00:00 Completed [facility] Influenza Virus Vaccine Quad IM 3+ YRS 2017-09-10 00:00:00 Completed [facility] Influenza Virus Vaccine Quad IM 3+ YRS 2017-09-10 00:00:00 Completed [facility] Influenza Virus Vaccine Quad IM 3+ YRS 2017-09-10 00:00:00 Completed [facility] Influenza Virus Vaccine Quad IM 3+ YRS 2017-09-10 00:00:00 Completed [facility] Influenza Virus Vaccine Quad IM 3+ YRS 2017-09-10 00:00:00 Completed [facility] Influenza Virus Vaccine Quad IM 3+ YRS 2017-09-10 00:00:00 Completed [facility] Influenza Virus Vaccine Quad IM 3+ YRS 2017-09-10 00:00:00 Completed [facility] Influenza Virus Vaccine Quad IM 3+ YRS 2017-09-10 00:00:00 Completed [facility] Influenza Virus Vaccine Quad IM 3+ YRS 2017-09-10 00:00:00 Completed [facility] Influenza Virus Vaccine Quad IM 3+ YRS 2017-09-10 00:00:00 Completed [facility] Influenza Virus Vaccine Quad IM 3+ YRS 2017-09-10 00:00:00 Completed [facility] Influenza Virus Vaccine Quad IM 3+ YRS 2017-09-10 00:00:00 Completed [facility] Influenza Virus Vaccine Quad IM 3+ YRS 2017-09-10 00:00:00 Completed [facility] Influenza Virus Vaccine Quad IM 3+ YRS 2017-09-10 00:00:00 Completed [facility] Influenza Virus Vaccine Quad IM 3+ YRS 2017-09-10 00:00:00 Completed [facility] Influenza Virus Vaccine Quad IM 3+ YRS 2017-09-10 00:00:00 Completed [facility] Influenza Virus Vaccine Quad IM 3+ YRS 2017-09-10 00:00:00 Completed [facility] Influenza Virus Vaccine Quad IM 3+ YRS 2017-09-10 00:00:00 Completed [facility] Influenza Virus Vaccine Quad IM 3+ YRS 2017-09-10 00:00:00 Completed [facility] Influenza Virus Vaccine Quad IM 3+ YRS 2017-09-10 00:00:00 Completed [facility] Influenza Virus Vaccine Quad IM 3+ YRS 2017-09-10 00:00:00 Completed [facility] Influenza Virus Vaccine Quad IM 3+ YRS 2017-09-10 00:00:00 Completed [facility] Influenza Virus Vaccine Quad IM 3+ YRS 2017-09-10 00:00:00 Completed [facility] Influenza Virus Vaccine Quad IM 3+ YRS 2017-09-10 00:00:00 Completed [facility] Influenza Virus Vaccine Quad IM 3+ YRS 2017-09-10 00:00:00 Completed [facility] Influenza Virus Vaccine Quad IM 3+ YRS 2017-09-10 00:00:00 Completed [facility] Influenza Virus Vaccine Quad IM 3+ YRS 2017-09-10 00:00:00 Completed [facility] Influenza Virus Vaccine Quad IM 3+ YRS 2017-09-10 00:00:00 Completed [facility] Influenza Virus Vaccine Quad IM 3+ YRS 2017-09-10 00:00:00 Completed [facility] Influenza Virus Vaccine Quad IM 3+ YRS 2017-09-10 00:00:00 Completed [facility] Influenza Virus Vaccine Quad IM 3+ YRS 2017-09-10 00:00:00 Completed [facility] Influenza Virus Vaccine Quad IM 3+ YRS 2017-09-10 00:00:00 Completed [facility] Influenza Virus Vaccine Quad IM 3+ YRS 2017-09-10 00:00:00 Completed [facility] Influenza Virus Vaccine Quad IM 3+ YRS 2017-09-10 00:00:00 Completed [facility] Influenza Virus Vaccine Quad IM 3+ YRS 2017-09-10 00:00:00 Completed [facility] Influenza Virus Vaccine Quad IM 3+ YRS 2017-09-10 00:00:00 Completed [facility] Influenza Virus Vaccine Quad IM 3+ YRS 2017-09-10 00:00:00 Completed [facility] Influenza Virus Vaccine Quad IM 3+ YRS 2017-09-10 00:00:00 Completed [facility] Influenza Virus Vaccine Quad IM 3+ YRS 2017-09-10 00:00:00 Completed [facility] Influenza Virus Vaccine Quad IM 3+ YRS 2017-09-10 00:00:00 Completed [facility] Influenza Virus Vaccine Quad IM 3+ YRS 2017-09-10 00:00:00 Completed [facility] Influenza Virus Vaccine Quad IM 3+ YRS 2017-09-10 00:00:00 Completed [facility] Influenza Virus Vaccine Quad IM 3+ YRS 2017-09-10 00:00:00 Completed [facility] Influenza Virus Vaccine Quad IM 3+ YRS 2017-09-10 00:00:00 Completed [facility] Influenza Virus Vaccine Quad IM 3+ YRS 2017-09-10 00:00:00 Completed [facility] Influenza Virus Vaccine Quad IM 3+ YRS 2017-09-10 00:00:00 Completed [facility] Influenza Virus Vaccine Quad IM 3+ YRS 2017-09-10 00:00:00 Completed [facility] Influenza Virus Vaccine Quad IM 3+ YRS 2017-09-10 00:00:00 Completed [facility] Influenza Virus Vaccine Quad IM 3+ YRS 2017-09-10 00:00:00 Completed [facility] Influenza Virus Vaccine Quad IM 3+ YRS 2017-09-10 00:00:00 Completed [facility] Influenza Virus Vaccine Quad IM 3+ YRS 2017-09-10 00:00:00 Completed [facility] Influenza Virus Vaccine Quad IM 3+ YRS 2017-09-10 00:00:00 Completed [facility] Influenza Virus Vaccine Quad IM 3+ YRS 2017-09-10 00:00:00 Completed [facility] Influenza Virus Vaccine Quad IM 3+ YRS 2017-09-10 00:00:00 Completed [facility] Influenza Virus Vaccine Quad IM 3+ YRS 2017-09-10 00:00:00 Completed [facility] TDAP 2016-10-09 00:00:00 Completed [facility] TDAP 2016-10-09 00:00:00 Completed [facility] TDAP 2016-10-09 00:00:00 Completed [facility] TDAP 2016-10-09 00:00:00 Completed [facility] TDAP 2016-10-09 00:00:00 Completed [facility] TDAP 2016-10-09 00:00:00 Completed [facility] TDAP 2016-10-09 00:00:00 Completed [facility] TDAP 2016-10-09 00:00:00 Completed [facility] TDAP 2016-10-09 00:00:00 Completed [facility] TDAP 2016-10-09 00:00:00 Completed [facility] TDAP 2016-10-09 00:00:00 Completed [facility] TDAP 2016-10-09 00:00:00 Completed [facility] TDAP 2016-10-09 00:00:00 Completed [facility] TDAP 2016-10-09 00:00:00 Completed [facility] TDAP 2016-10-09 00:00:00 Completed [facility] TDAP 2016-10-09 00:00:00 Completed [facility] TDAP 2016-10-09 00:00:00 Completed [facility] TDAP 2016-10-09 00:00:00 Completed [facility] TDAP 2016-10-09 00:00:00 Completed [facility] TDAP 2016-10-09 00:00:00 Completed [facility] TDAP 2016-10-09 00:00:00 Completed [facility] TDAP 2016-10-09 00:00:00 Completed [facility] TDAP 2016-10-09 00:00:00 Completed [facility] TDAP 2016-10-09 00:00:00 Completed [facility] TDAP 2016-10-09 00:00:00 Completed [facility] TDAP 2016-10-09 00:00:00 Completed [facility] TDAP 2016-10-09 00:00:00 Completed [facility] TDAP 2016-10-09 00:00:00 Completed [facility] TDAP 2016-10-09 00:00:00 Completed [facility] TDAP 2016-10-09 00:00:00 Completed [facility] TDAP 2016-10-09 00:00:00 Completed [facility] TDAP 2016-10-09 00:00:00 Completed [facility] TDAP 2016-10-09 00:00:00 Completed [facility] TDAP 2016-10-09 00:00:00 Completed [facility] TDAP 2016-10-09 00:00:00 Completed [facility] TDAP 2016-10-09 00:00:00 Completed [facility] TDAP 2016-10-09 00:00:00 Completed [facility] TDAP 2016-10-09 00:00:00 Completed [facility] TDAP 2016-10-09 00:00:00 Completed [facility] TDAP 2016-10-09 00:00:00 Completed [facility] TDAP 2016-10-09 00:00:00 Completed [facility] TDAP 2016-10-09 00:00:00 Completed [facility] TDAP 2016-10-09 00:00:00 Completed [facility] TDAP 2016-10-09 00:00:00 Completed [facility] TDAP 2016-10-09 00:00:00 Completed [facility] TDAP 2016-10-09 00:00:00 Completed [facility] TDAP 2016-10-09 00:00:00 Completed [facility] TDAP 2016-10-09 00:00:00 Completed [facility] TDAP 2016-10-09 00:00:00 Completed [facility] TDAP 2016-10-09 00:00:00 Completed [facility] TDAP 2016-10-09 00:00:00 Completed [facility] TDAP 2016-10-09 00:00:00 Completed [facility] TDAP 2016-10-09 00:00:00 Completed [facility] TDAP 2016-10-09 00:00:00 Completed [facility] TDAP 2016-10-09 00:00:00 Completed [facility] TDAP 2016-10-09 00:00:00 Completed [facility] TDAP 2016-10-09 00:00:00 Completed [facility] TDAP 2016-10-09 00:00:00 Completed [facility] TDAP 2016-10-09 00:00:00 Completed [facility] TDAP 2016-10-09 00:00:00 Completed [facility] TDAP 2016-10-09 00:00:00 Completed [facility] TDAP 2016-10-09 00:00:00 Completed [facility] TDAP 2016-10-09 00:00:00 Completed [facility] TDAP 2016-10-09 00:00:00 Completed [facility] TDAP 2016-10-09 00:00:00 Completed [facility] TDAP 2016-10-09 00:00:00 Completed [facility] TDAP 2016-10-09 00:00:00 Completed [facility] TDAP 2016-10-09 00:00:00 Completed [facility] TDAP 2016-10-09 00:00:00 Completed [facility] TDAP 2016-10-09 00:00:00 Completed [facility] TDAP 2016-10-09 00:00:00 Completed [facility] TDAP 2016-10-09 00:00:00 Completed [facility] TDAP 2016-10-09 00:00:00 Completed [facility] TDAP 2016-10-09 00:00:00 Completed [facility] TDAP 2016-10-09 00:00:00 Completed [facility] TDAP 2016-10-09 00:00:00 Completed [facility] TDAP 2016-10-09 00:00:00 Completed [facility] TDAP 2016-10-09 00:00:00 Completed [facility] TDAP 2016-10-09 00:00:00 Completed [facility] TDAP 2016-10-09 00:00:00 Completed [facility] TDAP 2016-10-09 00:00:00 Completed [facility] TDAP 2016-10-09 00:00:00 Completed [facility] TDAP 2016-10-09 00:00:00 Completed [facility] TDAP 2016-10-09 00:00:00 Completed [facility] TDAP 2016-10-09 00:00:00 Completed [facility] TDAP 2016-10-09 00:00:00 Completed [facility] TDAP 2016-10-09 00:00:00 Completed [facility] TDAP 2016-10-09 00:00:00 Completed [facility] Influenza Virus Vaccine Quad IM Multi-dose 6+ MO 2016-09-04 00:00:00 Completed [facility] Influenza Virus Vaccine Quad IM Multi-dose 6+ MO 2016-09-04 00:00:00 Completed [facility] Influenza Virus Vaccine Quad IM Multi-dose 6+ MO 2016-09-04 00:00:00 Completed [facility] Influenza Virus Vaccine Quad IM Multi-dose 6+ MO 2016-09-04 00:00:00 Completed [facility] Influenza Virus Vaccine Quad IM Multi-dose 6+ MO 2016-09-04 00:00:00 Completed [facility] Influenza Virus Vaccine Quad IM Multi-dose 6+ MO 2016-09-04 00:00:00 Completed [facility] Influenza Virus Vaccine Quad IM Multi-dose 6+ MO 2016-09-04 00:00:00 Completed [facility] Influenza Virus Vaccine Quad IM Multi-dose 6+ MO 2016-09-04 00:00:00 Completed [facility] Influenza Virus Vaccine Quad IM Multi-dose 6+ MO 2016-09-04 00:00:00 Completed [facility] Influenza Virus Vaccine Quad IM Multi-dose 6+ MO 2016-09-04 00:00:00 Completed [facility] Influenza Virus Vaccine Quad IM Multi-dose 6+ MO 2016-09-04 00:00:00 Completed [facility] Influenza Virus Vaccine Quad IM Multi-dose 6+ MO 2016-09-04 00:00:00 Completed [facility] Influenza Virus Vaccine Quad IM Multi-dose 6+ MO 2016-09-04 00:00:00 Completed [facility] Influenza Virus Vaccine Quad IM Multi-dose 6+ MO 2016-09-04 00:00:00 Completed [facility] Influenza Virus Vaccine Quad IM Multi-dose 6+ MO 2016-09-04 00:00:00 Completed [facility] Influenza Virus Vaccine Quad IM Multi-dose 6+ MO 2016-09-04 00:00:00 Completed [facility] Influenza Virus Vaccine Quad IM Multi-dose 6+ MO 2016-09-04 00:00:00 Completed [facility] Influenza Virus Vaccine Quad IM Multi-dose 6+ MO 2016-09-04 00:00:00 Completed [facility] Influenza Virus Vaccine Quad IM Multi-dose 6+ MO 2016-09-04 00:00:00 Completed [facility] Influenza Virus Vaccine Quad IM Multi-dose 6+ MO 2016-09-04 00:00:00 Completed [facility] Influenza Virus Vaccine Quad IM Multi-dose 6+ MO 2016-09-04 00:00:00 Completed [facility] Influenza Virus Vaccine Quad IM Multi-dose 6+ MO 2016-09-04 00:00:00 Completed [facility] Influenza Virus Vaccine Quad IM Multi-dose 6+ MO 2016-09-04 00:00:00 Completed [facility] Influenza Virus Vaccine Quad IM Multi-dose 6+ MO 2016-09-04 00:00:00 Completed [facility] Influenza Virus Vaccine Quad IM Multi-dose 6+ MO 2016-09-04 00:00:00 Completed [facility] Influenza Virus Vaccine Quad IM Multi-dose 6+ MO 2016-09-04 00:00:00 Completed [facility] Influenza Virus Vaccine Quad IM Multi-dose 6+ MO 2016-09-04 00:00:00 Completed [facility] Influenza Virus Vaccine Quad IM Multi-dose 6+ MO 2016-09-04 00:00:00 Completed [facility] Influenza Virus Vaccine Quad IM Multi-dose 6+ MO 2016-09-04 00:00:00 Completed [facility] Influenza Virus Vaccine Quad IM Multi-dose 6+ MO 2016-09-04 00:00:00 Completed [facility] Influenza Virus Vaccine Quad IM Multi-dose 6+ MO 2016-09-04 00:00:00 Completed [facility] Influenza Virus Vaccine Quad IM Multi-dose 6+ MO 2016-09-04 00:00:00 Completed [facility] Influenza Virus Vaccine Quad IM Multi-dose 6+ MO 2016-09-04 00:00:00 Completed [facility] Influenza Virus Vaccine Quad IM Multi-dose 6+ MO 2016-09-04 00:00:00 Completed [facility] Influenza Virus Vaccine Quad IM Multi-dose 6+ MO 2016-09-04 00:00:00 Completed [facility] Influenza Virus Vaccine Quad IM Multi-dose 6+ MO 2016-09-04 00:00:00 Completed [facility] Influenza Virus Vaccine Quad IM Multi-dose 6+ MO 2016-09-04 00:00:00 Completed [facility] Influenza Virus Vaccine Quad IM Multi-dose 6+ MO 2016-09-04 00:00:00 Completed [facility] Influenza Virus Vaccine Quad IM Multi-dose 6+ MO 2016-09-04 00:00:00 Completed [facility] Influenza Virus Vaccine Quad IM Multi-dose 6+ MO 2016-09-04 00:00:00 Completed [facility] Influenza Virus Vaccine Quad IM Multi-dose 6+ MO 2016-09-04 00:00:00 Completed [facility] Influenza Virus Vaccine Quad IM Multi-dose 6+ MO 2016-09-04 00:00:00 Completed [facility] Influenza Virus Vaccine Quad IM Multi-dose 6+ MO 2016-09-04 00:00:00 Completed [facility] Influenza Virus Vaccine Quad IM Multi-dose 6+ MO 2016-09-04 00:00:00 Completed [facility] Influenza Virus Vaccine Quad IM Multi-dose 6+ MO 2016-09-04 00:00:00 Completed [facility] Influenza Virus Vaccine Quad IM Multi-dose 6+ MO 2016-09-04 00:00:00 Completed [facility] Influenza Virus Vaccine Quad IM Multi-dose 6+ MO 2016-09-04 00:00:00 Completed [facility] Influenza Virus Vaccine Quad IM Multi-dose 6+ MO 2016-09-04 00:00:00 Completed [facility] Influenza Virus Vaccine Quad IM Multi-dose 6+ MO 2016-09-04 00:00:00 Completed [facility] Influenza Virus Vaccine Quad IM Multi-dose 6+ MO 2016-09-04 00:00:00 Completed [facility] Influenza Virus Vaccine Quad IM Multi-dose 6+ MO 2016-09-04 00:00:00 Completed [facility] Influenza Virus Vaccine Quad IM Multi-dose 6+ MO 2016-09-04 00:00:00 Completed [facility] Influenza Virus Vaccine Quad IM Multi-dose 6+ MO 2016-09-04 00:00:00 Completed [facility] Influenza Virus Vaccine Quad IM Multi-dose 6+ MO 2016-09-04 00:00:00 Completed [facility] Influenza Virus Vaccine Quad IM Multi-dose 6+ MO 2016-09-04 00:00:00 Completed [facility] Influenza Virus Vaccine Quad IM Multi-dose 6+ MO 2016-09-04 00:00:00 Completed [facility] Influenza Virus Vaccine Quad IM Multi-dose 6+ MO 2016-09-04 00:00:00 Completed [facility] Influenza Virus Vaccine Quad IM Multi-dose 6+ MO 2016-09-04 00:00:00 Completed [facility] Influenza Virus Vaccine Quad IM Multi-dose 6+ MO 2016-09-04 00:00:00 Completed [facility] Influenza Virus Vaccine Quad IM Multi-dose 6+ MO 2016-09-04 00:00:00 Completed [facility] Influenza Virus Vaccine Quad IM Multi-dose 6+ MO 2016-09-04 00:00:00 Completed [facility] Influenza Virus Vaccine Quad IM Multi-dose 6+ MO 2016-09-04 00:00:00 Completed [facility] Influenza Virus Vaccine Quad IM Multi-dose 6+ MO 2016-09-04 00:00:00 Completed [facility] Influenza Virus Vaccine Quad IM Multi-dose 6+ MO 2016-09-04 00:00:00 Completed [facility] Influenza Virus Vaccine Quad IM Multi-dose 6+ MO 2016-09-04 00:00:00 Completed [facility] Influenza Virus Vaccine Quad IM Multi-dose 6+ MO 2016-09-04 00:00:00 Completed [facility] Influenza Virus Vaccine Quad IM Multi-dose 6+ MO 2016-09-04 00:00:00 Completed [facility] Influenza Virus Vaccine Quad IM Multi-dose 6+ MO 2016-09-04 00:00:00 Completed [facility] Influenza Virus Vaccine Quad IM Multi-dose 6+ MO 2016-09-04 00:00:00 Completed [facility] Influenza Virus Vaccine Quad IM Multi-dose 6+ MO 2016-09-04 00:00:00 Completed [facility] Influenza Virus Vaccine Quad IM Multi-dose 6+ MO 2016-09-04 00:00:00 Completed [facility] Influenza Virus Vaccine Quad IM Multi-dose 6+ MO 2016-09-04 00:00:00 Completed [facility] Influenza Virus Vaccine Quad IM Multi-dose 6+ MO 2016-09-04 00:00:00 Completed [facility] Influenza Virus Vaccine Quad IM Multi-dose 6+ MO 2016-09-04 00:00:00 Completed [facility] Influenza Virus Vaccine Quad IM Multi-dose 6+ MO 2016-09-04 00:00:00 Completed [facility] Influenza Virus Vaccine Quad IM Multi-dose 6+ MO 2016-09-04 00:00:00 Completed [facility] Influenza Virus Vaccine Quad IM Multi-dose 6+ MO 2016-09-04 00:00:00 Completed [facility] Influenza Virus Vaccine Quad IM Multi-dose 6+ MO 2016-09-04 00:00:00 Completed [facility] Influenza Virus Vaccine Quad IM Multi-dose 6+ MO 2016-09-04 00:00:00 Completed Influenza Virus Vaccine Quad IM Multi-dose 6+ MO 2016-09-04 00:00:00 Completed Influenza Virus Vaccine Quad IM Multi-dose 6+ MO 2016-09-04 00:00:00 Completed Influenza Virus Vaccine Quad IM Multi-dose 6+ MO 2016-09-04 00:00:00 Completed Influenza Virus Vaccine Quad IM Multi-dose 6+ MO 2016-09-04 00:00:00 Completed Influenza Virus Vaccine Quad IM Multi-dose 6+ MO 2016-09-04 00:00:00 Completed Influenza Virus Vaccine Quad IM Multi-dose 6+ MO 2016-09-04 00:00:00 Completed Influenza Virus Vaccine Quad IM Multi-dose 6+ MO 2016-09-04 00:00:00 Completed Influenza Virus Vaccine Quad IM Multi-dose 6+ MO 2016-09-04 00:00:00 Completed Influenza Virus Vaccine Quad IM Multi-dose 6+ MO 2016-09-04 00:00:00 Completed Influenza Virus Vaccine Quad ID 18-64 YRS 2015-08-23 00:00:00 Completed [facility] Influenza Virus Vaccine Quad ID 18-64 YRS 2015-08-23 00:00:00 Completed [facility] Influenza Virus Vaccine Quad ID 18-64 YRS 2015-08-23 00:00:00 Completed [facility] Influenza Virus Vaccine Quad ID 18-64 YRS 2015-08-23 00:00:00 Completed [facility] Influenza Virus Vaccine Quad ID 18-64 YRS 2015-08-23 00:00:00 Completed [facility] Influenza Virus Vaccine Quad ID 18-64 YRS 2015-08-23 00:00:00 Completed [facility] Influenza Virus Vaccine Quad ID 18-64 YRS 2015-08-23 00:00:00 Completed [facility] Influenza Virus Vaccine Quad ID 18-64 YRS 2015-08-23 00:00:00 Completed [facility] Influenza Virus Vaccine Quad ID 18-64 YRS 2015-08-23 00:00:00 Completed [facility] Influenza Virus Vaccine Quad ID 18-64 YRS 2015-08-23 00:00:00 Completed [facility] Influenza Virus Vaccine Quad ID 18-64 YRS 2015-08-23 00:00:00 Completed [facility] Influenza Virus Vaccine Quad ID 18-64 YRS 2015-08-23 00:00:00 Completed [facility] Influenza Virus Vaccine Quad ID 18-64 YRS 2015-08-23 00:00:00 Completed [facility] Influenza Virus Vaccine Quad ID 18-64 YRS 2015-08-23 00:00:00 Completed [facility] Influenza Virus Vaccine Quad ID 18-64 YRS 2015-08-23 00:00:00 Completed [facility] Influenza Virus Vaccine Quad ID 18-64 YRS 2015-08-23 00:00:00 Completed [facility] Influenza Virus Vaccine Quad ID 18-64 YRS 2015-08-23 00:00:00 Completed [facility] Influenza Virus Vaccine Quad ID 18-64 YRS 2015-08-23 00:00:00 Completed [facility] Influenza Virus Vaccine Quad ID 18-64 YRS 2015-08-23 00:00:00 Completed [facility] Influenza Virus Vaccine Quad ID 18-64 YRS 2015-08-23 00:00:00 Completed [facility] Influenza Virus Vaccine Quad ID 18-64 YRS 2015-08-23 00:00:00 Completed [facility] Influenza Virus Vaccine Quad ID 18-64 YRS 2015-08-23 00:00:00 Completed [facility] Influenza Virus Vaccine Quad ID 18-64 YRS 2015-08-23 00:00:00 Completed [facility] Influenza Virus Vaccine Quad ID 18-64 YRS 2015-08-23 00:00:00 Completed [facility] Influenza Virus Vaccine Quad ID 18-64 YRS 2015-08-23 00:00:00 Completed [facility] Influenza Virus Vaccine Quad ID 18-64 YRS 2015-08-23 00:00:00 Completed [facility] Influenza Virus Vaccine Quad ID 18-64 YRS 2015-08-23 00:00:00 Completed [facility] Influenza Virus Vaccine Quad ID 18-64 YRS 2015-08-23 00:00:00 Completed [facility] Influenza Virus Vaccine Quad ID 18-64 YRS 2015-08-23 00:00:00 Completed [facility] Influenza Virus Vaccine Quad ID 18-64 YRS 2015-08-23 00:00:00 Completed [facility] Influenza Virus Vaccine Quad ID 18-64 YRS 2015-08-23 00:00:00 Completed [facility] Influenza Virus Vaccine Quad ID 18-64 YRS 2015-08-23 00:00:00 Completed [facility] Influenza Virus Vaccine Quad ID 18-64 YRS 2015-08-23 00:00:00 Completed [facility] Influenza Virus Vaccine Quad ID 18-64 YRS 2015-08-23 00:00:00 Completed [facility] Influenza Virus Vaccine Quad ID 18-64 YRS 2015-08-23 00:00:00 Completed [facility] Influenza Virus Vaccine Quad ID 18-64 YRS 2015-08-23 00:00:00 Completed [facility] Influenza Virus Vaccine Quad ID 18-64 YRS 2015-08-23 00:00:00 Completed [facility] Influenza Virus Vaccine Quad ID 18-64 YRS 2015-08-23 00:00:00 Completed [facility] Influenza Virus Vaccine Quad ID 18-64 YRS 2015-08-23 00:00:00 Completed [facility] Influenza Virus Vaccine Quad ID 18-64 YRS 2015-08-23 00:00:00 Completed [facility] Influenza Virus Vaccine Quad ID 18-64 YRS 2015-08-23 00:00:00 Completed [facility] Influenza Virus Vaccine Quad ID 18-64 YRS 2015-08-23 00:00:00 Completed [facility] Influenza Virus Vaccine Quad ID 18-64 YRS 2015-08-23 00:00:00 Completed [facility] Influenza Virus Vaccine Quad ID 18-64 YRS 2015-08-23 00:00:00 Completed [facility] Influenza Virus Vaccine Quad ID 18-64 YRS 2015-08-23 00:00:00 Completed [facility] Influenza Virus Vaccine Quad ID 18-64 YRS 2015-08-23 00:00:00 Completed [facility] Influenza Virus Vaccine Quad ID 18-64 YRS 2015-08-23 00:00:00 Completed [facility] Influenza Virus Vaccine Quad ID 18-64 YRS 2015-08-23 00:00:00 Completed [facility] Influenza Virus Vaccine Quad ID 18-64 YRS 2015-08-23 00:00:00 Completed [facility] Influenza Virus Vaccine Quad ID 18-64 YRS 2015-08-23 00:00:00 Completed [facility] Influenza Virus Vaccine Quad ID 18-64 YRS 2015-08-23 00:00:00 Completed [facility] Influenza Virus Vaccine Quad ID 18-64 YRS 2015-08-23 00:00:00 Completed [facility] Influenza Virus Vaccine Quad ID 18-64 YRS 2015-08-23 00:00:00 Completed [facility] Influenza Virus Vaccine Quad ID 18-64 YRS 2015-08-23 00:00:00 Completed [facility] Influenza Virus Vaccine Quad ID 18-64 YRS 2015-08-23 00:00:00 Completed [facility] Influenza Virus Vaccine Quad ID 18-64 YRS 2015-08-23 00:00:00 Completed [facility] Influenza Virus Vaccine Quad ID 18-64 YRS 2015-08-23 00:00:00 Completed [facility] Influenza Virus Vaccine Quad ID 18-64 YRS 2015-08-23 00:00:00 Completed [facility] Influenza Virus Vaccine Quad ID 18-64 YRS 2015-08-23 00:00:00 Completed [facility] Influenza Virus Vaccine Quad ID 18-64 YRS 2015-08-23 00:00:00 Completed [facility] Influenza Virus Vaccine Quad ID 18-64 YRS 2015-08-23 00:00:00 Completed [facility] Influenza Virus Vaccine Quad ID 18-64 YRS 2015-08-23 00:00:00 Completed [facility] Influenza Virus Vaccine Quad ID 18-64 YRS 2015-08-23 00:00:00 Completed [facility] Influenza Virus Vaccine Quad ID 18-64 YRS 2015-08-23 00:00:00 Completed [facility] Influenza Virus Vaccine Quad ID 18-64 YRS 2015-08-23 00:00:00 Completed [facility] Influenza Virus Vaccine Quad ID 18-64 YRS 2015-08-23 00:00:00 Completed [facility] Influenza Virus Vaccine Quad ID 18-64 YRS 2015-08-23 00:00:00 Completed [facility] Influenza Virus Vaccine Quad ID 18-64 YRS 2015-08-23 00:00:00 Completed [facility] Influenza Virus Vaccine Quad ID 18-64 YRS 2015-08-23 00:00:00 Completed [facility] Influenza Virus Vaccine Quad ID 18-64 YRS 2015-08-23 00:00:00 Completed [facility] Influenza Virus Vaccine Quad ID 18-64 YRS 2015-08-23 00:00:00 Completed [facility] Influenza Virus Vaccine Quad ID 18-64 YRS 2015-08-23 00:00:00 Completed [facility] Influenza Virus Vaccine Quad ID 18-64 YRS 2015-08-23 00:00:00 Completed [facility] Influenza Virus Vaccine Quad ID 18-64 YRS 2015-08-23 00:00:00 Completed [facility] Influenza Virus Vaccine Quad ID 18-64 YRS 2015-08-23 00:00:00 Completed [facility] Influenza Virus Vaccine Quad ID 18-64 YRS 2015-08-23 00:00:00 Completed [facility] Influenza Virus Vaccine Quad ID 18-64 YRS 2015-08-23 00:00:00 Completed [facility] Influenza Virus Vaccine Quad ID 18-64 YRS 2015-08-23 00:00:00 Completed [facility] Influenza Virus Vaccine Quad ID 18-64 YRS 2015-08-23 00:00:00 Completed Influenza Virus Vaccine Quad ID 18-64 YRS 2015-08-23 00:00:00 Completed Influenza Virus Vaccine Quad ID 18-64 YRS 2015-08-23 00:00:00 Completed Influenza Virus Vaccine Quad ID 18-64 YRS 2015-08-23 00:00:00 Completed Influenza Virus Vaccine Quad ID 18-64 YRS 2015-08-23 00:00:00 Completed Influenza Virus Vaccine Quad ID 18-64 YRS 2015-08-23 00:00:00 Completed Influenza Virus Vaccine Quad ID 18-64 YRS 2015-08-23 00:00:00 Completed Influenza Virus Vaccine Quad ID 18-64 YRS 2015-08-23 00:00:00 Completed Influenza Virus Vaccine Quad ID 18-64 YRS 2015-08-23 00:00:00 Completed Influenza Virus Vaccine Quad ID 18-64 YRS 2015-08-23 00:00:00 Completed Influenza Virus Vaccine (3+ yrs) 2014-08-14 00:00:00 Completed [facility] Influenza Virus Vaccine (3+ yrs) 2014-08-14 00:00:00 Completed [facility] Influenza Virus Vaccine (3+ yrs) 2014-08-14 00:00:00 Completed [facility] Influenza Virus Vaccine (3+ yrs) 2014-08-14 00:00:00 Completed [facility] Influenza Virus Vaccine (3+ yrs) 2014-08-14 00:00:00 Completed [facility] Influenza Virus Vaccine (3+ yrs) 2014-08-14 00:00:00 Completed [facility] Influenza Virus Vaccine (3+ yrs) 2014-08-14 00:00:00 Completed [facility] Influenza Virus Vaccine (3+ yrs) 2014-08-14 00:00:00 Completed [facility] Influenza Virus Vaccine (3+ yrs) 2014-08-14 00:00:00 Completed [facility] Influenza Virus Vaccine (3+ yrs) 2014-08-14 00:00:00 Completed [facility] Influenza Virus Vaccine (3+ yrs) 2014-08-14 00:00:00 Completed [facility] Influenza Virus Vaccine (3+ yrs) 2014-08-14 00:00:00 Completed [facility] Influenza Virus Vaccine (3+ yrs) 2014-08-14 00:00:00 Completed [facility] Influenza Virus Vaccine (3+ yrs) 2014-08-14 00:00:00 Completed [facility] Influenza Virus Vaccine (3+ yrs) 2014-08-14 00:00:00 Completed [facility] Influenza Virus Vaccine (3+ yrs) 2014-08-14 00:00:00 Completed [facility] Influenza Virus Vaccine (3+ yrs) 2014-08-14 00:00:00 Completed [facility] Influenza Virus Vaccine (3+ yrs) 2014-08-14 00:00:00 Completed [facility] Influenza Virus Vaccine (3+ yrs) 2014-08-14 00:00:00 Completed [facility] Influenza Virus Vaccine (3+ yrs) 2014-08-14 00:00:00 Completed [facility] Influenza Virus Vaccine (3+ yrs) 2014-08-14 00:00:00 Completed [facility] Influenza Virus Vaccine (3+ yrs) 2014-08-14 00:00:00 Completed [facility] Influenza Virus Vaccine (3+ yrs) 2014-08-14 00:00:00 Completed [facility] Influenza Virus Vaccine (3+ yrs) 2014-08-14 00:00:00 Completed [facility] Influenza Virus Vaccine (3+ yrs) 2014-08-14 00:00:00 Completed [facility] Influenza Virus Vaccine (3+ yrs) 2014-08-14 00:00:00 Completed [facility] Influenza Virus Vaccine (3+ yrs) 2014-08-14 00:00:00 Completed [facility] Influenza Virus Vaccine (3+ yrs) 2014-08-14 00:00:00 Completed [facility] Influenza Virus Vaccine (3+ yrs) 2014-08-14 00:00:00 Completed [facility] Influenza Virus Vaccine (3+ yrs) 2014-08-14 00:00:00 Completed [facility] Influenza Virus Vaccine (3+ yrs) 2014-08-14 00:00:00 Completed [facility] Influenza Virus Vaccine (3+ yrs) 2014-08-14 00:00:00 Completed [facility] Influenza Virus Vaccine (3+ yrs) 2014-08-14 00:00:00 Completed [facility] Influenza Virus Vaccine (3+ yrs) 2014-08-14 00:00:00 Completed [facility] Influenza Virus Vaccine (3+ yrs) 2014-08-14 00:00:00 Completed [facility] Influenza Virus Vaccine (3+ yrs) 2014-08-14 00:00:00 Completed [facility] Influenza Virus Vaccine (3+ yrs) 2014-08-14 00:00:00 Completed [facility] Influenza Virus Vaccine (3+ yrs) 2014-08-14 00:00:00 Completed [facility] Influenza Virus Vaccine (3+ yrs) 2014-08-14 00:00:00 Completed [facility] Influenza Virus Vaccine (3+ yrs) 2014-08-14 00:00:00 Completed [facility] Influenza Virus Vaccine (3+ yrs) 2014-08-14 00:00:00 Completed [facility] Influenza Virus Vaccine (3+ yrs) 2014-08-14 00:00:00 Completed [facility] Influenza Virus Vaccine (3+ yrs) 2014-08-14 00:00:00 Completed [facility] Influenza Virus Vaccine (3+ yrs) 2014-08-14 00:00:00 Completed [facility] Influenza Virus Vaccine (3+ yrs) 2014-08-14 00:00:00 Completed [facility] Influenza Virus Vaccine (3+ yrs) 2014-08-14 00:00:00 Completed [facility] Influenza Virus Vaccine (3+ yrs) 2014-08-14 00:00:00 Completed [facility] Influenza Virus Vaccine (3+ yrs) 2014-08-14 00:00:00 Completed [facility] Influenza Virus Vaccine (3+ yrs) 2014-08-14 00:00:00 Completed [facility] Influenza Virus Vaccine (3+ yrs) 2014-08-14 00:00:00 Completed [facility] Influenza Virus Vaccine (3+ yrs) 2014-08-14 00:00:00 Completed [facility] Influenza Virus Vaccine (3+ yrs) 2014-08-14 00:00:00 Completed [facility] Influenza Virus Vaccine (3+ yrs) 2014-08-14 00:00:00 Completed [facility] Influenza Virus Vaccine (3+ yrs) 2014-08-14 00:00:00 Completed [facility] Influenza Virus Vaccine (3+ yrs) 2014-08-14 00:00:00 Completed [facility] Influenza Virus Vaccine (3+ yrs) 2014-08-14 00:00:00 Completed [facility] Influenza Virus Vaccine (3+ yrs) 2014-08-14 00:00:00 Completed [facility] Influenza Virus Vaccine (3+ yrs) 2014-08-14 00:00:00 Completed [facility] Influenza Virus Vaccine (3+ yrs) 2014-08-14 00:00:00 Completed [facility] Influenza Virus Vaccine (3+ yrs) 2014-08-14 00:00:00 Completed [facility] Influenza Virus Vaccine (3+ yrs) 2014-08-14 00:00:00 Completed [facility] Influenza Virus Vaccine (3+ yrs) 2014-08-14 00:00:00 Completed [facility] Influenza Virus Vaccine (3+ yrs) 2014-08-14 00:00:00 Completed [facility] Influenza Virus Vaccine (3+ yrs) 2014-08-14 00:00:00 Completed [facility] Influenza Virus Vaccine (3+ yrs) 2014-08-14 00:00:00 Completed [facility] Influenza Virus Vaccine (3+ yrs) 2014-08-14 00:00:00 Completed [facility] Influenza Virus Vaccine (3+ yrs) 2014-08-14 00:00:00 Completed [facility] Influenza Virus Vaccine (3+ yrs) 2014-08-14 00:00:00 Completed [facility] Influenza Virus Vaccine (3+ yrs) 2014-08-14 00:00:00 Completed [facility] Influenza Virus Vaccine (3+ yrs) 2014-08-14 00:00:00 Completed [facility] Influenza Virus Vaccine (3+ yrs) 2014-08-14 00:00:00 Completed [facility] Influenza Virus Vaccine (3+ yrs) 2014-08-14 00:00:00 Completed [facility] Influenza Virus Vaccine (3+ yrs) 2014-08-14 00:00:00 Completed [facility] Influenza Virus Vaccine (3+ yrs) 2014-08-14 00:00:00 Completed [facility] Influenza Virus Vaccine (3+ yrs) 2014-08-14 00:00:00 Completed [facility] Influenza Virus Vaccine (3+ yrs) 2014-08-14 00:00:00 Completed [facility] Influenza Virus Vaccine (3+ yrs) 2014-08-14 00:00:00 Completed [facility] Influenza Virus Vaccine (3+ yrs) 2014-08-14 00:00:00 Completed [facility] Influenza Virus Vaccine (3+ yrs) 2014-08-14 00:00:00 Completed [facility] Influenza Virus Vaccine (3+ yrs) 2014-08-14 00:00:00 Completed [facility] Influenza, split virus, trivalent, preservative (3+ Yrs) (Afluria) 2014-08-14 00:00:00 Completed [facility] Influenza, split virus, trivalent, preservative (3+ Yrs) (Afluria) 2014-08-14 00:00:00 Completed [facility] Influenza, split virus, trivalent, preservative (3+ Yrs) (Afluria) 2014-08-14 00:00:00 Completed [facility] Influenza, split virus, trivalent, preservative (3+ Yrs) (Afluria) 2014-08-14 00:00:00 Completed [facility] Influenza, split virus, trivalent, preservative (3+ Yrs) (Afluria) 2014-08-14 00:00:00 Completed [facility] Influenza, split virus, trivalent, preservative (3+ Yrs) (Afluria) 2014-08-14 00:00:00 Completed [facility] Influenza, split virus, trivalent, preservative (3+ Yrs) (Afluria) 2014-08-14 00:00:00 Completed [facility] Influenza, split virus, trivalent, preservative (3+ Yrs) (Afluria) 2014-08-14 00:00:00 Completed [facility] Influenza Virus Vaccine 2013-08-08 00:00:00 Completed [facility] Influenza Virus Vaccine 2013-08-08 00:00:00 Completed [facility] Influenza Virus Vaccine 2013-08-08 00:00:00 Completed [facility] Influenza Virus Vaccine 2013-08-08 00:00:00 Completed [facility] Influenza Virus Vaccine 2013-08-08 00:00:00 Completed [facility] Influenza Virus Vaccine 2013-08-08 00:00:00 Completed [facility] Influenza Virus Vaccine 2013-08-08 00:00:00 Completed [facility] Influenza Virus Vaccine 2013-08-08 00:00:00 Completed [facility] Influenza Virus Vaccine 2013-08-08 00:00:00 Completed [facility] Influenza Virus Vaccine 2013-08-08 00:00:00 Completed [facility] Influenza Virus Vaccine 2013-08-08 00:00:00 Completed [facility] Influenza Virus Vaccine 2013-08-08 00:00:00 Completed [facility] Influenza Virus Vaccine 2013-08-08 00:00:00 Completed [facility] Influenza Virus Vaccine 2013-08-08 00:00:00 Completed [facility] Influenza Virus Vaccine 2013-08-08 00:00:00 Completed [facility] Influenza Virus Vaccine 2013-08-08 00:00:00 Completed [facility] Influenza Virus Vaccine 2013-08-08 00:00:00 Completed [facility] Influenza Virus Vaccine 2013-08-08 00:00:00 Completed [facility] Influenza Virus Vaccine 2013-08-08 00:00:00 Completed [facility] Influenza Virus Vaccine 2013-08-08 00:00:00 Completed [facility] Influenza Virus Vaccine 2013-08-08 00:00:00 Completed [facility] Influenza Virus Vaccine 2013-08-08 00:00:00 Completed [facility] Influenza Virus Vaccine 2013-08-08 00:00:00 Completed [facility] Influenza Virus Vaccine 2013-08-08 00:00:00 Completed [facility] Influenza Virus Vaccine 2013-08-08 00:00:00 Completed [facility] Influenza Virus Vaccine 2013-08-08 00:00:00 Completed [facility] Influenza Virus Vaccine 2013-08-08 00:00:00 Completed [facility] Influenza Virus Vaccine 2013-08-08 00:00:00 Completed [facility] Influenza Virus Vaccine 2013-08-08 00:00:00 Completed [facility] Influenza Virus Vaccine 2013-08-08 00:00:00 Completed [facility] Influenza Virus Vaccine 2013-08-08 00:00:00 Completed [facility] Influenza Virus Vaccine 2013-08-08 00:00:00 Completed [facility] Influenza Virus Vaccine 2013-08-08 00:00:00 Completed [facility] Influenza Virus Vaccine 2013-08-08 00:00:00 Completed [facility] Influenza Virus Vaccine 2013-08-08 00:00:00 Completed [facility] Influenza Virus Vaccine 2013-08-08 00:00:00 Completed [facility] Influenza Virus Vaccine 2013-08-08 00:00:00 Completed [facility] Influenza Virus Vaccine 2013-08-08 00:00:00 Completed [facility] Influenza Virus Vaccine 2013-08-08 00:00:00 Completed [facility] Influenza Virus Vaccine 2013-08-08 00:00:00 Completed [facility] Influenza Virus Vaccine 2013-08-08 00:00:00 Completed [facility] Influenza Virus Vaccine 2013-08-08 00:00:00 Completed [facility] Influenza Virus Vaccine 2013-08-08 00:00:00 Completed [facility] Influenza Virus Vaccine 2013-08-08 00:00:00 Completed [facility] Influenza Virus Vaccine 2013-08-08 00:00:00 Completed [facility] Influenza Virus Vaccine 2013-08-08 00:00:00 Completed [facility] Influenza Virus Vaccine 2013-08-08 00:00:00 Completed [facility] Influenza Virus Vaccine 2013-08-08 00:00:00 Completed [facility] Influenza Virus Vaccine 2013-08-08 00:00:00 Completed [facility] Influenza Virus Vaccine 2013-08-08 00:00:00 Completed [facility] Influenza Virus Vaccine 2013-08-08 00:00:00 Completed [facility] Influenza Virus Vaccine 2013-08-08 00:00:00 Completed [facility] Influenza Virus Vaccine 2013-08-08 00:00:00 Completed [facility] Influenza Virus Vaccine 2013-08-08 00:00:00 Completed [facility] Influenza Virus Vaccine 2013-08-08 00:00:00 Completed [facility] Influenza Virus Vaccine 2013-08-08 00:00:00 Completed [facility] Influenza Virus Vaccine 2013-08-08 00:00:00 Completed [facility] Influenza Virus Vaccine 2013-08-08 00:00:00 Completed [facility] Influenza Virus Vaccine 2013-08-08 00:00:00 Completed [facility] Influenza Virus Vaccine 2013-08-08 00:00:00 Completed [facility] Influenza Virus Vaccine 2013-08-08 00:00:00 Completed [facility] Influenza Virus Vaccine 2013-08-08 00:00:00 Completed [facility] Influenza Virus Vaccine 2013-08-08 00:00:00 Completed [facility] Influenza Virus Vaccine 2013-08-08 00:00:00 Completed [facility] Influenza Virus Vaccine 2013-08-08 00:00:00 Completed [facility] Influenza Virus Vaccine 2013-08-08 00:00:00 Completed [facility] Influenza Virus Vaccine 2013-08-08 00:00:00 Completed [facility] Influenza Virus Vaccine 2013-08-08 00:00:00 Completed [facility] Influenza Virus Vaccine 2013-08-08 00:00:00 Completed [facility] Influenza Virus Vaccine 2013-08-08 00:00:00 Completed [facility] Influenza Virus Vaccine 2013-08-08 00:00:00 Completed [facility] Influenza Virus Vaccine 2013-08-08 00:00:00 Completed [facility] Influenza Virus Vaccine 2013-08-08 00:00:00 Completed [facility] Influenza Virus Vaccine 2013-08-08 00:00:00 Completed [facility] Influenza Virus Vaccine 2013-08-08 00:00:00 Completed [facility] Influenza Virus Vaccine 2013-08-08 00:00:00 Completed [facility] Influenza Virus Vaccine 2013-08-08 00:00:00 Completed [facility] Influenza Virus Vaccine 2013-08-08 00:00:00 Completed [facility] Influenza Virus Vaccine 2013-08-08 00:00:00 Completed [facility] Influenza Virus Vaccine 2013-08-08 00:00:00 Completed [facility] Influenza Virus Vaccine 2013-08-08 00:00:00 Completed [facility] Influenza Virus Vaccine 2013-08-08 00:00:00 Completed [facility] Influenza Virus Vaccine 2013-08-08 00:00:00 Completed [facility] Influenza Virus Vaccine 2013-08-08 00:00:00 Completed [facility] Influenza Virus Vaccine 2013-08-08 00:00:00 Completed [facility] Influenza Virus Vaccine 2013-08-08 00:00:00 Completed [facility] Influenza Virus Vaccine 2013-08-08 00:00:00 Completed [facility] Influenza Virus Vaccine 2013-08-08 00:00:00 Completed [facility] Influenza Virus Vaccine 2012-09-03 00:00:00 Completed [facility] Influenza Virus Vaccine 2012-09-03 00:00:00 Completed [facility] Influenza Virus Vaccine 2012-09-03 00:00:00 Completed [facility] Influenza Virus Vaccine 2012-09-03 00:00:00 Completed [facility] Influenza Virus Vaccine 2012-09-03 00:00:00 Completed [facility] Influenza Virus Vaccine 2012-09-03 00:00:00 Completed [facility] Influenza Virus Vaccine 2012-09-03 00:00:00 Completed [facility] Influenza Virus Vaccine 2012-09-03 00:00:00 Completed [facility] Influenza Virus Vaccine 2012-09-03 00:00:00 Completed [facility] Influenza Virus Vaccine 2012-09-03 00:00:00 Completed [facility] Influenza Virus Vaccine 2012-09-03 00:00:00 Completed [facility] Influenza Virus Vaccine 2012-09-03 00:00:00 Completed [facility] Influenza Virus Vaccine 2012-09-03 00:00:00 Completed [facility] Influenza Virus Vaccine 2012-09-03 00:00:00 Completed [facility] Influenza Virus Vaccine 2012-09-03 00:00:00 Completed [facility] Influenza Virus Vaccine 2012-09-03 00:00:00 Completed [facility] Influenza Virus Vaccine 2012-09-03 00:00:00 Completed [facility] Influenza Virus Vaccine 2012-09-03 00:00:00 Completed [facility] Influenza Virus Vaccine 2012-09-03 00:00:00 Completed [facility] Influenza Virus Vaccine 2012-09-03 00:00:00 Completed [facility] Influenza Virus Vaccine 2012-09-03 00:00:00 Completed [facility] Influenza Virus Vaccine 2012-09-03 00:00:00 Completed [facility] Influenza Virus Vaccine 2012-09-03 00:00:00 Completed [facility] Influenza Virus Vaccine 2012-09-03 00:00:00 Completed [facility] Influenza Virus Vaccine 2012-09-03 00:00:00 Completed [facility] Influenza Virus Vaccine 2012-09-03 00:00:00 Completed [facility] Influenza Virus Vaccine 2012-09-03 00:00:00 Completed [facility] Influenza Virus Vaccine 2012-09-03 00:00:00 Completed [facility] Influenza Virus Vaccine 2012-09-03 00:00:00 Completed [facility] Influenza Virus Vaccine 2012-09-03 00:00:00 Completed [facility] Influenza Virus Vaccine 2012-09-03 00:00:00 Completed [facility] Influenza Virus Vaccine 2012-09-03 00:00:00 Completed [facility] Influenza Virus Vaccine 2012-09-03 00:00:00 Completed [facility] Influenza Virus Vaccine 2012-09-03 00:00:00 Completed [facility] Influenza Virus Vaccine 2012-09-03 00:00:00 Completed [facility] Influenza Virus Vaccine 2012-09-03 00:00:00 Completed [facility] Influenza Virus Vaccine 2012-09-03 00:00:00 Completed [facility] Influenza Virus Vaccine 2012-09-03 00:00:00 Completed [facility] Influenza Virus Vaccine 2012-09-03 00:00:00 Completed [facility] Influenza Virus Vaccine 2012-09-03 00:00:00 Completed [facility] Influenza Virus Vaccine 2012-09-03 00:00:00 Completed [facility] Influenza Virus Vaccine 2012-09-03 00:00:00 Completed [facility] Influenza Virus Vaccine 2012-09-03 00:00:00 Completed [facility] Influenza Virus Vaccine 2012-09-03 00:00:00 Completed [facility] Influenza Virus Vaccine 2012-09-03 00:00:00 Completed [facility] Influenza Virus Vaccine 2012-09-03 00:00:00 Completed [facility] Influenza Virus Vaccine 2012-09-03 00:00:00 Completed [facility] Influenza Virus Vaccine 2012-09-03 00:00:00 Completed [facility] Influenza Virus Vaccine 2012-09-03 00:00:00 Completed [facility] Influenza Virus Vaccine 2012-09-03 00:00:00 Completed [facility] Influenza Virus Vaccine 2012-09-03 00:00:00 Completed [facility] Influenza Virus Vaccine 2012-09-03 00:00:00 Completed [facility] Influenza Virus Vaccine 2012-09-03 00:00:00 Completed [facility] Influenza Virus Vaccine 2012-09-03 00:00:00 Completed [facility] Influenza Virus Vaccine 2012-09-03 00:00:00 Completed [facility] Influenza Virus Vaccine 2012-09-03 00:00:00 Completed [facility] Influenza Virus Vaccine 2012-09-03 00:00:00 Completed [facility] Influenza Virus Vaccine 2012-09-03 00:00:00 Completed [facility] Influenza Virus Vaccine 2012-09-03 00:00:00 Completed [facility] Influenza Virus Vaccine 2012-09-03 00:00:00 Completed [facility] Influenza Virus Vaccine 2012-09-03 00:00:00 Completed [facility] Influenza Virus Vaccine 2012-09-03 00:00:00 Completed [facility] Influenza Virus Vaccine 2012-09-03 00:00:00 Completed [facility] Influenza Virus Vaccine 2012-09-03 00:00:00 Completed [facility] Influenza Virus Vaccine 2012-09-03 00:00:00 Completed [facility] Influenza Virus Vaccine 2012-09-03 00:00:00 Completed [facility] Influenza Virus Vaccine 2012-09-03 00:00:00 Completed [facility] Influenza Virus Vaccine 2012-09-03 00:00:00 Completed [facility] Influenza Virus Vaccine 2012-09-03 00:00:00 Completed [facility] Influenza Virus Vaccine 2012-09-03 00:00:00 Completed [facility] Influenza Virus Vaccine 2012-09-03 00:00:00 Completed [facility] Influenza Virus Vaccine 2012-09-03 00:00:00 Completed [facility] Influenza Virus Vaccine 2012-09-03 00:00:00 Completed [facility] Influenza Virus Vaccine 2012-09-03 00:00:00 Completed [facility] Influenza Virus Vaccine 2012-09-03 00:00:00 Completed [facility] Influenza Virus Vaccine 2012-09-03 00:00:00 Completed [facility] Influenza Virus Vaccine 2012-09-03 00:00:00 Completed [facility] Influenza Virus Vaccine 2012-09-03 00:00:00 Completed [facility] Influenza Virus Vaccine 2012-09-03 00:00:00 Completed [facility] Influenza Virus Vaccine 2012-09-03 00:00:00 Completed [facility] Influenza Virus Vaccine 2012-09-03 00:00:00 Completed [facility] Influenza Virus Vaccine 2012-09-03 00:00:00 Completed [facility] Influenza Virus Vaccine 2012-09-03 00:00:00 Completed [facility] Influenza Virus Vaccine 2012-09-03 00:00:00 Completed [facility] Influenza Virus Vaccine 2012-09-03 00:00:00 Completed [facility] Influenza Virus Vaccine 2012-09-03 00:00:00 Completed [facility] Influenza Virus Vaccine 2012-09-03 00:00:00 Completed [facility] Influenza Virus Vaccine 2012-09-03 00:00:00 Completed [facility] Influenza Virus Vaccine 2011-09-19 00:00:00 Completed [facility] Influenza Virus Vaccine 2011-09-19 00:00:00 Completed [facility] Influenza Virus Vaccine 2011-09-19 00:00:00 Completed [facility] Influenza Virus Vaccine 2011-09-19 00:00:00 Completed [facility] Influenza Virus Vaccine 2011-09-19 00:00:00 Completed [facility] Influenza Virus Vaccine 2011-09-19 00:00:00 Completed [facility] Influenza Virus Vaccine 2011-09-19 00:00:00 Completed [facility] Influenza Virus Vaccine 2011-09-19 00:00:00 Completed [facility] Influenza Virus Vaccine 2011-09-19 00:00:00 Completed [facility] Influenza Virus Vaccine 2011-09-19 00:00:00 Completed [facility] Influenza Virus Vaccine 2011-09-19 00:00:00 Completed [facility] Influenza Virus Vaccine 2011-09-19 00:00:00 Completed [facility] Influenza Virus Vaccine 2011-09-19 00:00:00 Completed [facility] Influenza Virus Vaccine 2011-09-19 00:00:00 Completed [facility] Influenza Virus Vaccine 2011-09-19 00:00:00 Completed [facility] Influenza Virus Vaccine 2011-09-19 00:00:00 Completed [facility] Influenza Virus Vaccine 2011-09-19 00:00:00 Completed [facility] Influenza Virus Vaccine 2011-09-19 00:00:00 Completed [facility] Influenza Virus Vaccine 2011-09-19 00:00:00 Completed [facility] Influenza Virus Vaccine 2011-09-19 00:00:00 Completed [facility] Influenza Virus Vaccine 2011-09-19 00:00:00 Completed [facility] Influenza Virus Vaccine 2011-09-19 00:00:00 Completed [facility] Influenza Virus Vaccine 2011-09-19 00:00:00 Completed [facility] Influenza Virus Vaccine 2011-09-19 00:00:00 Completed [facility] Influenza Virus Vaccine 2011-09-19 00:00:00 Completed [facility] Influenza Virus Vaccine 2011-09-19 00:00:00 Completed [facility] Influenza Virus Vaccine 2011-09-19 00:00:00 Completed [facility] Influenza Virus Vaccine 2011-09-19 00:00:00 Completed [facility] Influenza Virus Vaccine 2011-09-19 00:00:00 Completed [facility] Influenza Virus Vaccine 2011-09-19 00:00:00 Completed [facility] Influenza Virus Vaccine 2011-09-19 00:00:00 Completed [facility] Influenza Virus Vaccine 2011-09-19 00:00:00 Completed [facility] Influenza Virus Vaccine 2011-09-19 00:00:00 Completed [facility] Influenza Virus Vaccine 2011-09-19 00:00:00 Completed [facility] Influenza Virus Vaccine 2011-09-19 00:00:00 Completed [facility] Influenza Virus Vaccine 2011-09-19 00:00:00 Completed [facility] Influenza Virus Vaccine 2011-09-19 00:00:00 Completed [facility] Influenza Virus Vaccine 2011-09-19 00:00:00 Completed [facility] Influenza Virus Vaccine 2011-09-19 00:00:00 Completed [facility] Influenza Virus Vaccine 2011-09-19 00:00:00 Completed [facility] Influenza Virus Vaccine 2011-09-19 00:00:00 Completed [facility] Influenza Virus Vaccine 2011-09-19 00:00:00 Completed [facility] Influenza Virus Vaccine 2011-09-19 00:00:00 Completed [facility] Influenza Virus Vaccine 2011-09-19 00:00:00 Completed [facility] Influenza Virus Vaccine 2011-09-19 00:00:00 Completed [facility] Influenza Virus Vaccine 2011-09-19 00:00:00 Completed [facility] Influenza Virus Vaccine 2011-09-19 00:00:00 Completed [facility] Influenza Virus Vaccine 2011-09-19 00:00:00 Completed [facility] Influenza Virus Vaccine 2011-09-19 00:00:00 Completed [facility] Influenza Virus Vaccine 2011-09-19 00:00:00 Completed [facility] Influenza Virus Vaccine 2011-09-19 00:00:00 Completed [facility] Influenza Virus Vaccine 2011-09-19 00:00:00 Completed [facility] Influenza Virus Vaccine 2011-09-19 00:00:00 Completed [facility] Influenza Virus Vaccine 2011-09-19 00:00:00 Completed [facility] Influenza Virus Vaccine 2011-09-19 00:00:00 Completed [facility] Influenza Virus Vaccine 2011-09-19 00:00:00 Completed [facility] Influenza Virus Vaccine 2011-09-19 00:00:00 Completed [facility] Influenza Virus Vaccine 2011-09-19 00:00:00 Completed [facility] Influenza Virus Vaccine 2011-09-19 00:00:00 Completed [facility] Influenza Virus Vaccine 2011-09-19 00:00:00 Completed [facility] Influenza Virus Vaccine 2011-09-19 00:00:00 Completed [facility] Influenza Virus Vaccine 2011-09-19 00:00:00 Completed [facility] Influenza Virus Vaccine 2011-09-19 00:00:00 Completed [facility] Influenza Virus Vaccine 2011-09-19 00:00:00 Completed [facility] Influenza Virus Vaccine 2011-09-19 00:00:00 Completed [facility] Influenza Virus Vaccine 2011-09-19 00:00:00 Completed [facility] Influenza Virus Vaccine 2011-09-19 00:00:00 Completed [facility] Influenza Virus Vaccine 2011-09-19 00:00:00 Completed [facility] Influenza Virus Vaccine 2011-09-19 00:00:00 Completed [facility] Influenza Virus Vaccine 2011-09-19 00:00:00 Completed [facility] Influenza Virus Vaccine 2011-09-19 00:00:00 Completed [facility] Influenza Virus Vaccine 2011-09-19 00:00:00 Completed [facility] Influenza Virus Vaccine 2011-09-19 00:00:00 Completed [facility] Influenza Virus Vaccine 2011-09-19 00:00:00 Completed [facility] Influenza Virus Vaccine 2011-09-19 00:00:00 Completed [facility] Influenza Virus Vaccine 2011-09-19 00:00:00 Completed [facility] Influenza Virus Vaccine 2011-09-19 00:00:00 Completed [facility] Influenza Virus Vaccine 2011-09-19 00:00:00 Completed [facility] Influenza Virus Vaccine 2011-09-19 00:00:00 Completed [facility] 2011-09-19 00:00:00 Completed [facility] 2011-09-19 00:00:00 Completed [facility] 2011-09-19 00:00:00 Completed [facility] 2011-09-19 00:00:00 Completed [facility] 2011-09-19 00:00:00 Completed Influenza Virus Vaccine 2011-09-19 00:00:00 Completed Influenza Virus Vaccine 2011-09-19 00:00:00 Completed Influenza Virus Vaccine 2011-09-19 00:00:00 Completed Influenza Virus Vaccine 2011-09-19 00:00:00 Completed Influenza Virus Vaccine 2010-10-25 00:00:00 Completed [facility] Influenza Virus Vaccine 2010-10-25 00:00:00 Completed [facility] Influenza Virus Vaccine 2010-10-25 00:00:00 Completed [facility] Influenza Virus Vaccine 2010-10-25 00:00:00 Completed [facility] Influenza Virus Vaccine 2010-10-25 00:00:00 Completed [facility] Influenza Virus Vaccine 2010-10-25 00:00:00 Completed [facility] Influenza Virus Vaccine 2010-10-25 00:00:00 Completed [facility] Influenza Virus Vaccine 2010-10-25 00:00:00 Completed [facility] Influenza Virus Vaccine 2010-10-25 00:00:00 Completed [facility] Influenza Virus Vaccine 2010-10-25 00:00:00 Completed [facility] Influenza Virus Vaccine 2010-10-25 00:00:00 Completed [facility] Influenza Virus Vaccine 2010-10-25 00:00:00 Completed [facility] Influenza Virus Vaccine 2010-10-25 00:00:00 Completed [facility] Influenza Virus Vaccine 2010-10-25 00:00:00 Completed [facility] Influenza Virus Vaccine 2010-10-25 00:00:00 Completed [facility] Influenza Virus Vaccine 2010-10-25 00:00:00 Completed [facility] Influenza Virus Vaccine 2010-10-25 00:00:00 Completed [facility] Influenza Virus Vaccine 2010-10-25 00:00:00 Completed [facility] Influenza Virus Vaccine 2010-10-25 00:00:00 Completed [facility] Influenza Virus Vaccine 2010-10-25 00:00:00 Completed [facility] Influenza Virus Vaccine 2010-10-25 00:00:00 Completed [facility] Influenza Virus Vaccine 2010-10-25 00:00:00 Completed [facility] Influenza Virus Vaccine 2010-10-25 00:00:00 Completed [facility] Influenza Virus Vaccine 2010-10-25 00:00:00 Completed [facility] Influenza Virus Vaccine 2010-10-25 00:00:00 Completed [facility] Influenza Virus Vaccine 2010-10-25 00:00:00 Completed [facility] Influenza Virus Vaccine 2010-10-25 00:00:00 Completed [facility] Influenza Virus Vaccine 2010-10-25 00:00:00 Completed [facility] Influenza Virus Vaccine 2010-10-25 00:00:00 Completed [facility] Influenza Virus Vaccine 2010-10-25 00:00:00 Completed [facility] Influenza Virus Vaccine 2010-10-25 00:00:00 Completed [facility] Influenza Virus Vaccine 2010-10-25 00:00:00 Completed [facility] Influenza Virus Vaccine 2010-10-25 00:00:00 Completed [facility] Influenza Virus Vaccine 2010-10-25 00:00:00 Completed [facility] Influenza Virus Vaccine 2010-10-25 00:00:00 Completed [facility] Influenza Virus Vaccine 2010-10-25 00:00:00 Completed [facility] Influenza Virus Vaccine 2010-10-25 00:00:00 Completed [facility] Influenza Virus Vaccine 2010-10-25 00:00:00 Completed [facility] Influenza Virus Vaccine 2010-10-25 00:00:00 Completed [facility] Influenza Virus Vaccine 2010-10-25 00:00:00 Completed [facility] Influenza Virus Vaccine 2010-10-25 00:00:00 Completed [facility] Influenza Virus Vaccine 2010-10-25 00:00:00 Completed [facility] Influenza Virus Vaccine 2010-10-25 00:00:00 Completed [facility] Influenza Virus Vaccine 2010-10-25 00:00:00 Completed [facility] Influenza Virus Vaccine 2010-10-25 00:00:00 Completed [facility] Influenza Virus Vaccine 2010-10-25 00:00:00 Completed [facility] Influenza Virus Vaccine 2010-10-25 00:00:00 Completed [facility] Influenza Virus Vaccine 2010-10-25 00:00:00 Completed [facility] Influenza Virus Vaccine 2010-10-25 00:00:00 Completed [facility] Influenza Virus Vaccine 2010-10-25 00:00:00 Completed [facility] Influenza Virus Vaccine 2010-10-25 00:00:00 Completed [facility] Influenza Virus Vaccine 2010-10-25 00:00:00 Completed [facility] Influenza Virus Vaccine 2010-10-25 00:00:00 Completed [facility] Influenza Virus Vaccine 2010-10-25 00:00:00 Completed [facility] Influenza Virus Vaccine 2010-10-25 00:00:00 Completed [facility] Influenza Virus Vaccine 2010-10-25 00:00:00 Completed [facility] Influenza Virus Vaccine 2010-10-25 00:00:00 Completed [facility] Influenza Virus Vaccine 2010-10-25 00:00:00 Completed [facility] Influenza Virus Vaccine 2010-10-25 00:00:00 Completed [facility] Influenza Virus Vaccine 2010-10-25 00:00:00 Completed [facility] Influenza Virus Vaccine 2010-10-25 00:00:00 Completed [facility] Influenza Virus Vaccine 2010-10-25 00:00:00 Completed [facility] Influenza Virus Vaccine 2010-10-25 00:00:00 Completed [facility] Influenza Virus Vaccine 2010-10-25 00:00:00 Completed [facility] Influenza Virus Vaccine 2010-10-25 00:00:00 Completed [facility] Influenza Virus Vaccine 2010-10-25 00:00:00 Completed [facility] Influenza Virus Vaccine 2010-10-25 00:00:00 Completed [facility] Influenza Virus Vaccine 2010-10-25 00:00:00 Completed [facility] Influenza Virus Vaccine 2010-10-25 00:00:00 Completed [facility] Influenza Virus Vaccine 2010-10-25 00:00:00 Completed [facility] Influenza Virus Vaccine 2010-10-25 00:00:00 Completed [facility] Influenza Virus Vaccine 2010-10-25 00:00:00 Completed [facility] Influenza Virus Vaccine 2010-10-25 00:00:00 Completed [facility] Influenza Virus Vaccine 2010-10-25 00:00:00 Completed [facility] Influenza Virus Vaccine 2010-10-25 00:00:00 Completed [facility] Influenza Virus Vaccine 2010-10-25 00:00:00 Completed [facility] Influenza Virus Vaccine 2010-10-25 00:00:00 Completed [facility] Influenza Virus Vaccine 2010-10-25 00:00:00 Completed [facility] Influenza Virus Vaccine 2010-10-25 00:00:00 Completed [facility] Influenza Virus Vaccine 2010-10-25 00:00:00 Completed [facility] Influenza Virus Vaccine 2010-10-25 00:00:00 Completed [facility] Influenza Virus Vaccine 2010-10-25 00:00:00 Completed [facility] Influenza Virus Vaccine 2010-10-25 00:00:00 Completed [facility] Influenza Virus Vaccine 2010-10-25 00:00:00 Completed [facility] Influenza Virus Vaccine 2010-10-25 00:00:00 Completed [facility] Influenza Virus Vaccine 2010-10-25 00:00:00 Completed [facility] Influenza Virus Vaccine 2010-10-25 00:00:00 Completed [facility] Influenza Virus Vaccine 2010-10-25 00:00:00 Completed [facility] Hep B, Adol or Pedi Dosage 2010-03-07 00:00:00 Completed [facility] Hep B, Adol or Pedi Dosage 2010-03-07 00:00:00 Completed [facility] Hep B, Adol or Pedi Dosage 2010-03-07 00:00:00 Completed [facility] Hep B, Adol or Pedi Dosage 2010-03-07 00:00:00 Completed [facility] Hep B, Adol or Pedi Dosage 2010-03-07 00:00:00 Completed [facility] Hep B, Adol or Pedi Dosage 2010-03-07 00:00:00 Completed [facility] Hep B, Adol or Pedi Dosage 2010-03-07 00:00:00 Completed [facility] Hep B, Adol or Pedi Dosage 2010-03-07 00:00:00 Completed [facility] Hep B, Adol or Pedi Dosage 2010-03-07 00:00:00 Completed [facility] Hep B, Adol or Pedi Dosage 2010-03-07 00:00:00 Completed [facility] Hep B, Adol or Pedi Dosage 2010-03-07 00:00:00 Completed [facility] Hep B, Adol or Pedi Dosage 2010-03-07 00:00:00 Completed [facility] Hep B, Adol or Pedi Dosage 2010-03-07 00:00:00 Completed [facility] Hep B, Adol or Pedi Dosage 2010-03-07 00:00:00 Completed [facility] Hep B, Adol or Pedi Dosage 2010-03-07 00:00:00 Completed [facility] Hep B, Adol or Pedi Dosage 2010-03-07 00:00:00 Completed [facility] Hep B, Adol or Pedi Dosage 2010-03-07 00:00:00 Completed [facility] Hep B, Adol or Pedi Dosage 2010-03-07 00:00:00 Completed [facility] Hep B, Adol or Pedi Dosage 2010-03-07 00:00:00 Completed [facility] Hep B, Adol or Pedi Dosage 2010-03-07 00:00:00 Completed [facility] Hep B, Adol or Pedi Dosage 2010-03-07 00:00:00 Completed [facility] Hep B, Adol or Pedi Dosage 2010-03-07 00:00:00 Completed [facility] Hep B, Adol or Pedi Dosage 2010-03-07 00:00:00 Completed [facility] Hep B, Adol or Pedi Dosage 2010-03-07 00:00:00 Completed [facility] Hep B, Adol or Pedi Dosage 2010-03-07 00:00:00 Completed [facility] Hep B, Adol or Pedi Dosage 2010-03-07 00:00:00 Completed [facility] Hep B, Adol or Pedi Dosage 2010-03-07 00:00:00 Completed [facility] Hep B, Adol or Pedi Dosage 2010-03-07 00:00:00 Completed [facility] Hep B, Adol or Pedi Dosage 2010-03-07 00:00:00 Completed [facility] Hep B, Adol or Pedi Dosage 2010-03-07 00:00:00 Completed [facility] Hep B, Adol or Pedi Dosage 2010-03-07 00:00:00 Completed [facility] Hep B, Adol or Pedi Dosage 2010-03-07 00:00:00 Completed [facility] Hep B, Adol or Pedi Dosage 2010-03-07 00:00:00 Completed [facility] Hep B, Adol or Pedi Dosage 2010-03-07 00:00:00 Completed [facility] Hep B, Adol or Pedi Dosage 2010-03-07 00:00:00 Completed [facility] Hep B, Adol or Pedi Dosage 2010-03-07 00:00:00 Completed [facility] Hep B, Adol or Pedi Dosage 2010-03-07 00:00:00 Completed [facility] Hep B, Adol or Pedi Dosage 2010-03-07 00:00:00 Completed [facility] Hep B, Adol or Pedi Dosage 2010-03-07 00:00:00 Completed [facility] Hep B, Adol or Pedi Dosage 2010-03-07 00:00:00 Completed [facility] Hep B, Adol or Pedi Dosage 2010-03-07 00:00:00 Completed [facility] Hep B, Adol or Pedi Dosage 2010-03-07 00:00:00 Completed [facility] Hep B, Adol or Pedi Dosage 2010-03-07 00:00:00 Completed [facility] Hep B, Adol or Pedi Dosage 2010-03-07 00:00:00 Completed [facility] Hep B, Adol or Pedi Dosage 2010-03-07 00:00:00 Completed [facility] Hep B, Adol or Pedi Dosage 2010-03-07 00:00:00 Completed [facility] Hep B, Adol or Pedi Dosage 2010-03-07 00:00:00 Completed [facility] Hep B, Adol or Pedi Dosage 2010-03-07 00:00:00 Completed [facility] Hep B, Adol or Pedi Dosage 2010-03-07 00:00:00 Completed [facility] Hep B, Adol or Pedi Dosage 2010-03-07 00:00:00 Completed [facility] Hep B, Adol or Pedi Dosage 2010-03-07 00:00:00 Completed [facility] Hep B, Adol or Pedi Dosage 2010-03-07 00:00:00 Completed [facility] Hep B, Adol or Pedi Dosage 2010-03-07 00:00:00 Completed [facility] Hep B, Adol or Pedi Dosage 2010-03-07 00:00:00 Completed [facility] Hep B, Adol or Pedi Dosage 2010-03-07 00:00:00 Completed [facility] Hep B, Adol or Pedi Dosage 2010-03-07 00:00:00 Completed [facility] Hep B, Adol or Pedi Dosage 2010-03-07 00:00:00 Completed [facility] Hep B, Adol or Pedi Dosage 2010-03-07 00:00:00 Completed [facility] Hep B, Adol or Pedi Dosage 2010-03-07 00:00:00 Completed [facility] Hep B, Adol or Pedi Dosage 2010-03-07 00:00:00 Completed [facility] Hep B, Adol or Pedi Dosage 2010-03-07 00:00:00 Completed [facility] Hep B, Adol or Pedi Dosage 2010-03-07 00:00:00 Completed [facility] Hep B, Adol or Pedi Dosage 2010-03-07 00:00:00 Completed [facility] Hep B, Adol or Pedi Dosage 2010-03-07 00:00:00 Completed [facility] Hep B, Adol or Pedi Dosage 2010-03-07 00:00:00 Completed [facility] Hep B, Adol or Pedi Dosage 2010-03-07 00:00:00 Completed [facility] Hep B, Adol or Pedi Dosage 2010-03-07 00:00:00 Completed [facility] Hep B, Adol or Pedi Dosage 2010-03-07 00:00:00 Completed [facility] Hep B, Adol or Pedi Dosage 2010-03-07 00:00:00 Completed [facility] Hep B, Adol or Pedi Dosage 2010-03-07 00:00:00 Completed [facility] Hep B, Adol or Pedi Dosage 2010-03-07 00:00:00 Completed [facility] Hep B, Adol or Pedi Dosage 2010-03-07 00:00:00 Completed [facility] Hep B, Adol or Pedi Dosage 2010-03-07 00:00:00 Completed [facility] Hep B, Adol or Pedi Dosage 2010-03-07 00:00:00 Completed [facility] Hep B, Adol or Pedi Dosage 2010-03-07 00:00:00 Completed [facility] Hep B, Adol or Pedi Dosage 2010-03-07 00:00:00 Completed [facility] Hep B, Adol or Pedi Dosage 2010-03-07 00:00:00 Completed [facility] Hep B, Adol or Pedi Dosage 2010-03-07 00:00:00 Completed [facility] Hep B, Adol or Pedi Dosage 2010-03-07 00:00:00 Completed Hep B, Adol or Pedi Dosage 2010-03-07 00:00:00 Completed Hep B, Adol or Pedi Dosage 2010-03-07 00:00:00 Completed Hep B, Adol or Pedi Dosage 2010-03-07 00:00:00 Completed Hep B, Adol or Pedi Dosage 2010-03-07 00:00:00 Completed Hep B, Adol or Pedi Dosage 2010-03-07 00:00:00 Completed Hep B, Adol or Pedi Dosage 2010-03-07 00:00:00 Completed Hep B, Adol or Pedi Dosage 2010-03-07 00:00:00 Completed Hep B, Adol or Pedi Dosage 2010-03-07 00:00:00 Completed Hep B, Adol or Pedi Dosage 2010-03-07 00:00:00 Completed H1n1 Vaccine 2009-11-01 00:00:00 Completed [facility] H1n1 Vaccine 2009-11-01 00:00:00 Completed [facility] H1n1 Vaccine 2009-11-01 00:00:00 Completed [facility] H1n1 Vaccine 2009-11-01 00:00:00 Completed [facility] H1n1 Vaccine 2009-11-01 00:00:00 Completed [facility] H1n1 Vaccine 2009-11-01 00:00:00 Completed [facility] H1n1 Vaccine 2009-11-01 00:00:00 Completed [facility] H1n1 Vaccine 2009-11-01 00:00:00 Completed [facility] H1n1 Vaccine 2009-11-01 00:00:00 Completed [facility] H1n1 Vaccine 2009-11-01 00:00:00 Completed [facility] H1n1 Vaccine 2009-11-01 00:00:00 Completed [facility] H1n1 Vaccine 2009-11-01 00:00:00 Completed [facility] H1n1 Vaccine 2009-11-01 00:00:00 Completed [facility] H1n1 Vaccine 2009-11-01 00:00:00 Completed [facility] H1n1 Vaccine 2009-11-01 00:00:00 Completed [facility] H1n1 Vaccine 2009-11-01 00:00:00 Completed [facility] H1n1 Vaccine 2009-11-01 00:00:00 Completed [facility] H1n1 Vaccine 2009-11-01 00:00:00 Completed [facility] H1n1 Vaccine 2009-11-01 00:00:00 Completed [facility] H1n1 Vaccine 2009-11-01 00:00:00 Completed [facility] H1n1 Vaccine 2009-11-01 00:00:00 Completed [facility] H1n1 Vaccine 2009-11-01 00:00:00 Completed [facility] H1n1 Vaccine 2009-11-01 00:00:00 Completed [facility] H1n1 Vaccine 2009-11-01 00:00:00 Completed [facility] H1n1 Vaccine 2009-11-01 00:00:00 Completed [facility] H1n1 Vaccine 2009-11-01 00:00:00 Completed [facility] H1n1 Vaccine 2009-11-01 00:00:00 Completed [facility] H1n1 Vaccine 2009-11-01 00:00:00 Completed [facility] H1n1 Vaccine 2009-11-01 00:00:00 Completed [facility] H1n1 Vaccine 2009-11-01 00:00:00 Completed [facility] H1n1 Vaccine 2009-11-01 00:00:00 Completed [facility] H1n1 Vaccine 2009-11-01 00:00:00 Completed [facility] H1n1 Vaccine 2009-11-01 00:00:00 Completed [facility] H1n1 Vaccine 2009-11-01 00:00:00 Completed [facility] H1n1 Vaccine 2009-11-01 00:00:00 Completed [facility] H1n1 Vaccine 2009-11-01 00:00:00 Completed [facility] H1n1 Vaccine 2009-11-01 00:00:00 Completed [facility] H1n1 Vaccine 2009-11-01 00:00:00 Completed [facility] H1n1 Vaccine 2009-11-01 00:00:00 Completed [facility] H1n1 Vaccine 2009-11-01 00:00:00 Completed [facility] H1n1 Vaccine 2009-11-01 00:00:00 Completed [facility] H1n1 Vaccine 2009-11-01 00:00:00 Completed [facility] H1n1 Vaccine 2009-11-01 00:00:00 Completed [facility] H1n1 Vaccine 2009-11-01 00:00:00 Completed [facility] H1n1 Vaccine 2009-11-01 00:00:00 Completed [facility] H1n1 Vaccine 2009-11-01 00:00:00 Completed [facility] H1n1 Vaccine 2009-11-01 00:00:00 Completed [facility] H1n1 Vaccine 2009-11-01 00:00:00 Completed [facility] H1n1 Vaccine 2009-11-01 00:00:00 Completed [facility] H1n1 Vaccine 2009-11-01 00:00:00 Completed [facility] H1n1 Vaccine 2009-11-01 00:00:00 Completed [facility] H1n1 Vaccine 2009-11-01 00:00:00 Completed [facility] H1n1 Vaccine 2009-11-01 00:00:00 Completed [facility] H1n1 Vaccine 2009-11-01 00:00:00 Completed [facility] H1n1 Vaccine 2009-11-01 00:00:00 Completed [facility] H1n1 Vaccine 2009-11-01 00:00:00 Completed [facility] H1n1 Vaccine 2009-11-01 00:00:00 Completed [facility] H1n1 Vaccine 2009-11-01 00:00:00 Completed [facility] H1n1 Vaccine 2009-11-01 00:00:00 Completed [facility] H1n1 Vaccine 2009-11-01 00:00:00 Completed [facility] H1n1 Vaccine 2009-11-01 00:00:00 Completed [facility] H1n1 Vaccine 2009-11-01 00:00:00 Completed [facility] H1n1 Vaccine 2009-11-01 00:00:00 Completed [facility] H1n1 Vaccine 2009-11-01 00:00:00 Completed [facility] H1n1 Vaccine 2009-11-01 00:00:00 Completed [facility] H1n1 Vaccine 2009-11-01 00:00:00 Completed [facility] H1n1 Vaccine 2009-11-01 00:00:00 Completed [facility] H1n1 Vaccine 2009-11-01 00:00:00 Completed [facility] H1n1 Vaccine 2009-11-01 00:00:00 Completed [facility] H1n1 Vaccine 2009-11-01 00:00:00 Completed [facility] H1n1 Vaccine 2009-11-01 00:00:00 Completed [facility] H1n1 Vaccine 2009-11-01 00:00:00 Completed [facility] H1n1 Vaccine 2009-11-01 00:00:00 Completed [facility] H1n1 Vaccine 2009-11-01 00:00:00 Completed [facility] H1n1 Vaccine 2009-11-01 00:00:00 Completed [facility] H1n1 Vaccine 2009-11-01 00:00:00 Completed [facility] H1n1 Vaccine 2009-11-01 00:00:00 Completed [facility] H1n1 Vaccine 2009-11-01 00:00:00 Completed [facility] H1n1 Vaccine 2009-11-01 00:00:00 Completed H1n1 Vaccine 2009-11-01 00:00:00 Completed H1n1 Vaccine 2009-11-01 00:00:00 Completed H1n1 Vaccine 2009-11-01 00:00:00 Completed H1n1 Vaccine 2009-11-01 00:00:00 Completed H1n1 Vaccine 2009-11-01 00:00:00 Completed H1n1 Vaccine 2009-11-01 00:00:00 Completed H1n1 Vaccine 2009-11-01 00:00:00 Completed H1n1 Vaccine 2009-11-01 00:00:00 Completed H1n1 Vaccine 2009-11-01 00:00:00 Completed Pneumococcal Polysaccharide, PPSV23 (PNEUMOVAX) 2009-10-04 00:00:00 Completed [facility] Pneumococcal Polysaccharide, PPSV23 (PNEUMOVAX) 2009-10-04 00:00:00 Completed [facility] Pneumococcal Polysaccharide, PPSV23 (PNEUMOVAX) 2009-10-04 00:00:00 Completed [facility] Pneumococcal Polysaccharide, PPSV23 (PNEUMOVAX) 2009-10-04 00:00:00 Completed [facility] Pneumococcal Polysaccharide, PPSV23 (PNEUMOVAX) 2009-10-04 00:00:00 Completed [facility] Pneumococcal Polysaccharide, PPSV23 (PNEUMOVAX) 2009-10-04 00:00:00 Completed [facility] Pneumococcal Polysaccharide, PPSV23 (PNEUMOVAX) 2009-10-04 00:00:00 Completed [facility] Pneumococcal Polysaccharide, PPSV23 (PNEUMOVAX) 2009-10-04 00:00:00 Completed [facility] Pneumococcal Polysaccharide, PPSV23 (PNEUMOVAX) 2009-10-04 00:00:00 Completed [facility] Pneumococcal Polysaccharide, PPSV23 (PNEUMOVAX) 2009-10-04 00:00:00 Completed [facility] Pneumococcal Polysaccharide, PPSV23 (PNEUMOVAX) 2009-10-04 00:00:00 Completed [facility] Pneumococcal Polysaccharide, PPSV23 (PNEUMOVAX) 2009-10-04 00:00:00 Completed [facility] Pneumococcal Polysaccharide, PPSV23 (PNEUMOVAX) 2009-10-04 00:00:00 Completed [facility] Pneumococcal Polysaccharide, PPSV23 (PNEUMOVAX) 2009-10-04 00:00:00 Completed [facility] Pneumococcal Polysaccharide, PPSV23 (PNEUMOVAX) 2009-10-04 00:00:00 Completed [facility] Pneumococcal Polysaccharide, PPSV23 (PNEUMOVAX) 2009-10-04 00:00:00 Completed [facility] Pneumococcal Polysaccharide, PPSV23 (PNEUMOVAX) 2009-10-04 00:00:00 Completed [facility] Pneumococcal Polysaccharide, PPSV23 (PNEUMOVAX) 2009-10-04 00:00:00 Completed [facility] Pneumococcal Polysaccharide, PPSV23 (PNEUMOVAX) 2009-10-04 00:00:00 Completed [facility] Pneumococcal Polysaccharide, PPSV23 (PNEUMOVAX) 2009-10-04 00:00:00 Completed [facility] Pneumococcal Polysaccharide, PPSV23 (PNEUMOVAX) 2009-10-04 00:00:00 Completed [facility] Pneumococcal Polysaccharide, PPSV23 (PNEUMOVAX) 2009-10-04 00:00:00 Completed [facility] Pneumococcal Polysaccharide, PPSV23 (PNEUMOVAX) 2009-10-04 00:00:00 Completed [facility] Pneumococcal Polysaccharide, PPSV23 (PNEUMOVAX) 2009-10-04 00:00:00 Completed [facility] Pneumococcal Polysaccharide, PPSV23 (PNEUMOVAX) 2009-10-04 00:00:00 Completed [facility] Pneumococcal Polysaccharide, PPSV23 (PNEUMOVAX) 2009-10-04 00:00:00 Completed [facility] Pneumococcal Polysaccharide, PPSV23 (PNEUMOVAX) 2009-10-04 00:00:00 Completed [facility] Pneumococcal Polysaccharide, PPSV23 (PNEUMOVAX) 2009-10-04 00:00:00 Completed [facility] Pneumococcal Polysaccharide, PPSV23 (PNEUMOVAX) 2009-10-04 00:00:00 Completed [facility] Pneumococcal Polysaccharide, PPSV23 (PNEUMOVAX) 2009-10-04 00:00:00 Completed [facility] Pneumococcal Polysaccharide, PPSV23 (PNEUMOVAX) 2009-10-04 00:00:00 Completed [facility] Pneumococcal Polysaccharide, PPSV23 (PNEUMOVAX) 2009-10-04 00:00:00 Completed [facility] Pneumococcal Polysaccharide, PPSV23 (PNEUMOVAX) 2009-10-04 00:00:00 Completed [facility] Pneumococcal Polysaccharide, PPSV23 (PNEUMOVAX) 2009-10-04 00:00:00 Completed [facility] Pneumococcal Polysaccharide, PPSV23 (PNEUMOVAX) 2009-10-04 00:00:00 Completed [facility] Pneumococcal Polysaccharide, PPSV23 (PNEUMOVAX) 2009-10-04 00:00:00 Completed [facility] Pneumococcal Polysaccharide, PPSV23 (PNEUMOVAX) 2009-10-04 00:00:00 Completed [facility] Pneumococcal Polysaccharide, PPSV23 (PNEUMOVAX) 2009-10-04 00:00:00 Completed [facility] Pneumococcal Polysaccharide, PPSV23 (PNEUMOVAX) 2009-10-04 00:00:00 Completed [facility] Pneumococcal Polysaccharide, PPSV23 (PNEUMOVAX) 2009-10-04 00:00:00 Completed [facility] Pneumococcal Polysaccharide, PPSV23 (PNEUMOVAX) 2009-10-04 00:00:00 Completed [facility] Pneumococcal Polysaccharide, PPSV23 (PNEUMOVAX) 2009-10-04 00:00:00 Completed [facility] Pneumococcal Polysaccharide, PPSV23 (PNEUMOVAX) 2009-10-04 00:00:00 Completed [facility] Pneumococcal Polysaccharide, PPSV23 (PNEUMOVAX) 2009-10-04 00:00:00 Completed [facility] Pneumococcal Polysaccharide, PPSV23 (PNEUMOVAX) 2009-10-04 00:00:00 Completed [facility] Pneumococcal Polysaccharide, PPSV23 (PNEUMOVAX) 2009-10-04 00:00:00 Completed [facility] Pneumococcal Polysaccharide, PPSV23 (PNEUMOVAX) 2009-10-04 00:00:00 Completed [facility] Pneumococcal Polysaccharide, PPSV23 (PNEUMOVAX) 2009-10-04 00:00:00 Completed [facility] Pneumococcal Polysaccharide, PPSV23 (PNEUMOVAX) 2009-10-04 00:00:00 Completed [facility] Pneumococcal Polysaccharide, PPSV23 (PNEUMOVAX) 2009-10-04 00:00:00 Completed [facility] Pneumococcal Polysaccharide, PPSV23 (PNEUMOVAX) 2009-10-04 00:00:00 Completed [facility] Pneumococcal Polysaccharide, PPSV23 (PNEUMOVAX) 2009-10-04 00:00:00 Completed [facility] Pneumococcal Polysaccharide, PPSV23 (PNEUMOVAX) 2009-10-04 00:00:00 Completed [facility] Pneumococcal Polysaccharide, PPSV23 (PNEUMOVAX) 2009-10-04 00:00:00 Completed [facility] Pneumococcal Polysaccharide, PPSV23 (PNEUMOVAX) 2009-10-04 00:00:00 Completed [facility] Pneumococcal Polysaccharide, PPSV23 (PNEUMOVAX) 2009-10-04 00:00:00 Completed [facility] Pneumococcal Polysaccharide, PPSV23 (PNEUMOVAX) 2009-10-04 00:00:00 Completed [facility] Pneumococcal Polysaccharide, PPSV23 (PNEUMOVAX) 2009-10-04 00:00:00 Completed [facility] Pneumococcal Polysaccharide, PPSV23 (PNEUMOVAX) 2009-10-04 00:00:00 Completed [facility] Pneumococcal Polysaccharide, PPSV23 (PNEUMOVAX) 2009-10-04 00:00:00 Completed [facility] Pneumococcal Polysaccharide, PPSV23 (PNEUMOVAX) 2009-10-04 00:00:00 Completed [facility] Pneumococcal Polysaccharide, PPSV23 (PNEUMOVAX) 2009-10-04 00:00:00 Completed [facility] Pneumococcal Polysaccharide, PPSV23 (PNEUMOVAX) 2009-10-04 00:00:00 Completed [facility] Pneumococcal Polysaccharide, PPSV23 (PNEUMOVAX) 2009-10-04 00:00:00 Completed [facility] Pneumococcal Polysaccharide, PPSV23 (PNEUMOVAX) 2009-10-04 00:00:00 Completed [facility] Pneumococcal Polysaccharide, PPSV23 (PNEUMOVAX) 2009-10-04 00:00:00 Completed [facility] Pneumococcal Polysaccharide, PPSV23 (PNEUMOVAX) 2009-10-04 00:00:00 Completed [facility] Pneumococcal Polysaccharide, PPSV23 (PNEUMOVAX) 2009-10-04 00:00:00 Completed [facility] Pneumococcal Polysaccharide, PPSV23 (PNEUMOVAX) 2009-10-04 00:00:00 Completed [facility] Pneumococcal Polysaccharide, PPSV23 (PNEUMOVAX) 2009-10-04 00:00:00 Completed [facility] Pneumococcal Polysaccharide, PPSV23 (PNEUMOVAX) 2009-10-04 00:00:00 Completed [facility] Pneumococcal Polysaccharide, PPSV23 (PNEUMOVAX) 2009-10-04 00:00:00 Completed [facility] Pneumococcal Polysaccharide, PPSV23 (PNEUMOVAX) 2009-10-04 00:00:00 Completed [facility] Pneumococcal Polysaccharide, PPSV23 (PNEUMOVAX) 2009-10-04 00:00:00 Completed [facility] Pneumococcal Polysaccharide, PPSV23 (PNEUMOVAX) 2009-10-04 00:00:00 Completed [facility] Pneumococcal Polysaccharide, PPSV23 (PNEUMOVAX) 2009-10-04 00:00:00 Completed [facility] Pneumococcal Polysaccharide, PPSV23 (PNEUMOVAX) 2009-10-04 00:00:00 Completed [facility] Pneumococcal Polysaccharide, PPSV23 (PNEUMOVAX) 2009-10-04 00:00:00 Completed [facility] Pneumococcal Polysaccharide, PPSV23 (PNEUMOVAX) 2009-10-04 00:00:00 Completed Pneumococcal Polysaccharide, PPSV23 (PNEUMOVAX) 2009-10-04 00:00:00 Completed Pneumococcal Polysaccharide, PPSV23 (PNEUMOVAX) 2009-10-04 00:00:00 Completed Pneumococcal Polysaccharide, PPSV23 (PNEUMOVAX) 2009-10-04 00:00:00 Completed Pneumococcal Polysaccharide, PPSV23 (PNEUMOVAX) 2009-10-04 00:00:00 Completed Pneumococcal Polysaccharide, PPSV23 (PNEUMOVAX) 2009-10-04 00:00:00 Completed Pneumococcal Polysaccharide, PPSV23 (PNEUMOVAX) 2009-10-04 00:00:00 Completed Pneumococcal Polysaccharide, PPSV23 (PNEUMOVAX) 2009-10-04 00:00:00 Completed Pneumococcal Polysaccharide, PPSV23 (PNEUMOVAX) 2009-10-04 00:00:00 Completed Pneumococcal Polysaccharide, PPSV23 (PNEUMOVAX) 2009-10-04 00:00:00 Completed Hep B, Adol or Pedi Dosage 2009-08-30 00:00:00 Completed [facility] Influenza Virus Vaccine 2009-08-30 00:00:00 Completed [facility] Hep B, Adol or Pedi Dosage 2009-08-30 00:00:00 Completed [facility] Influenza Virus Vaccine 2009-08-30 00:00:00 Completed [facility] Hep B, Adol or Pedi Dosage 2009-08-30 00:00:00 Completed [facility] Influenza Virus Vaccine 2009-08-30 00:00:00 Completed [facility] Hep B, Adol or Pedi Dosage 2009-08-30 00:00:00 Completed [facility] Influenza Virus Vaccine 2009-08-30 00:00:00 Completed [facility] Hep B, Adol or Pedi Dosage 2009-08-30 00:00:00 Completed [facility] Influenza Virus Vaccine 2009-08-30 00:00:00 Completed [facility] Hep B, Adol or Pedi Dosage 2009-08-30 00:00:00 Completed [facility] Influenza Virus Vaccine 2009-08-30 00:00:00 Completed [facility] Hep B, Adol or Pedi Dosage 2009-08-30 00:00:00 Completed [facility] Influenza Virus Vaccine 2009-08-30 00:00:00 Completed [facility] Hep B, Adol or Pedi Dosage 2009-08-30 00:00:00 Completed [facility] Influenza Virus Vaccine 2009-08-30 00:00:00 Completed [facility] Hep B, Adol or Pedi Dosage 2009-08-30 00:00:00 Completed [facility] Influenza Virus Vaccine 2009-08-30 00:00:00 Completed [facility] Hep B, Adol or Pedi Dosage 2009-08-30 00:00:00 Completed [facility] Influenza Virus Vaccine 2009-08-30 00:00:00 Completed [facility] Hep B, Adol or Pedi Dosage 2009-08-30 00:00:00 Completed [facility] Influenza Virus Vaccine 2009-08-30 00:00:00 Completed [facility] Hep B, Adol or Pedi Dosage 2009-08-30 00:00:00 Completed [facility] Influenza Virus Vaccine 2009-08-30 00:00:00 Completed [facility] Hep B, Adol or Pedi Dosage 2009-08-30 00:00:00 Completed [facility] Influenza Virus Vaccine 2009-08-30 00:00:00 Completed [facility] Hep B, Adol or Pedi Dosage 2009-08-30 00:00:00 Completed [facility] Influenza Virus Vaccine 2009-08-30 00:00:00 Completed [facility] Hep B, Adol or Pedi Dosage 2009-08-30 00:00:00 Completed [facility] Influenza Virus Vaccine 2009-08-30 00:00:00 Completed [facility] Hep B, Adol or Pedi Dosage 2009-08-30 00:00:00 Completed [facility] Influenza Virus Vaccine 2009-08-30 00:00:00 Completed [facility] Hep B, Adol or Pedi Dosage 2009-08-30 00:00:00 Completed [facility] Influenza Virus Vaccine 2009-08-30 00:00:00 Completed [facility] Hep B, Adol or Pedi Dosage 2009-08-30 00:00:00 Completed [facility] Influenza Virus Vaccine 2009-08-30 00:00:00 Completed [facility] Hep B, Adol or Pedi Dosage 2009-08-30 00:00:00 Completed [facility] Influenza Virus Vaccine 2009-08-30 00:00:00 Completed [facility] Hep B, Adol or Pedi Dosage 2009-08-30 00:00:00 Completed [facility] Influenza Virus Vaccine 2009-08-30 00:00:00 Completed [facility] Hep B, Adol or Pedi Dosage 2009-08-30 00:00:00 Completed [facility] Influenza Virus Vaccine 2009-08-30 00:00:00 Completed [facility] Hep B, Adol or Pedi Dosage 2009-08-30 00:00:00 Completed [facility] Influenza Virus Vaccine 2009-08-30 00:00:00 Completed [facility] Hep B, Adol or Pedi Dosage 2009-08-30 00:00:00 Completed [facility] Influenza Virus Vaccine 2009-08-30 00:00:00 Completed [facility] Hep B, Adol or Pedi Dosage 2009-08-30 00:00:00 Completed [facility] Influenza Virus Vaccine 2009-08-30 00:00:00 Completed [facility] Hep B, Adol or Pedi Dosage 2009-08-30 00:00:00 Completed [facility] Influenza Virus Vaccine 2009-08-30 00:00:00 Completed [facility] Hep B, Adol or Pedi Dosage 2009-08-30 00:00:00 Completed [facility] Influenza Virus Vaccine 2009-08-30 00:00:00 Completed [facility] Hep B, Adol or Pedi Dosage 2009-08-30 00:00:00 Completed [facility] Influenza Virus Vaccine 2009-08-30 00:00:00 Completed [facility] Hep B, Adol or Pedi Dosage 2009-08-30 00:00:00 Completed [facility] Influenza Virus Vaccine 2009-08-30 00:00:00 Completed [facility] Hep B, Adol or Pedi Dosage 2009-08-30 00:00:00 Completed [facility] Influenza Virus Vaccine 2009-08-30 00:00:00 Completed [facility] Hep B, Adol or Pedi Dosage 2009-08-30 00:00:00 Completed [facility] Influenza Virus Vaccine 2009-08-30 00:00:00 Completed [facility] Hep B, Adol or Pedi Dosage 2009-08-30 00:00:00 Completed [facility] Influenza Virus Vaccine 2009-08-30 00:00:00 Completed [facility] Hep B, Adol or Pedi Dosage 2009-08-30 00:00:00 Completed [facility] Influenza Virus Vaccine 2009-08-30 00:00:00 Completed [facility] Hep B, Adol or Pedi Dosage 2009-08-30 00:00:00 Completed [facility] Influenza Virus Vaccine 2009-08-30 00:00:00 Completed [facility] Hep B, Adol or Pedi Dosage 2009-08-30 00:00:00 Completed [facility] Influenza Virus Vaccine 2009-08-30 00:00:00 Completed [facility] Hep B, Adol or Pedi Dosage 2009-08-30 00:00:00 Completed [facility] Influenza Virus Vaccine 2009-08-30 00:00:00 Completed [facility] Hep B, Adol or Pedi Dosage 2009-08-30 00:00:00 Completed [facility] Influenza Virus Vaccine 2009-08-30 00:00:00 Completed [facility] Hep B, Adol or Pedi Dosage 2009-08-30 00:00:00 Completed [facility] Influenza Virus Vaccine 2009-08-30 00:00:00 Completed [facility] Hep B, Adol or Pedi Dosage 2009-08-30 00:00:00 Completed [facility] Influenza Virus Vaccine 2009-08-30 00:00:00 Completed [facility] Hep B, Adol or Pedi Dosage 2009-08-30 00:00:00 Completed [facility] Influenza Virus Vaccine 2009-08-30 00:00:00 Completed [facility] Hep B, Adol or Pedi Dosage 2009-08-30 00:00:00 Completed [facility] Influenza Virus Vaccine 2009-08-30 00:00:00 Completed [facility] Hep B, Adol or Pedi Dosage 2009-08-30 00:00:00 Completed [facility] Influenza Virus Vaccine 2009-08-30 00:00:00 Completed [facility] Hep B, Adol or Pedi Dosage 2009-08-30 00:00:00 Completed [facility] Influenza Virus Vaccine 2009-08-30 00:00:00 Completed [facility] Hep B, Adol or Pedi Dosage 2009-08-30 00:00:00 Completed [facility] Influenza Virus Vaccine 2009-08-30 00:00:00 Completed [facility] Hep B, Adol or Pedi Dosage 2009-08-30 00:00:00 Completed [facility] Influenza Virus Vaccine 2009-08-30 00:00:00 Completed [facility] Hep B, Adol or Pedi Dosage 2009-08-30 00:00:00 Completed [facility] Influenza Virus Vaccine 2009-08-30 00:00:00 Completed [facility] Hep B, Adol or Pedi Dosage 2009-08-30 00:00:00 Completed [facility] Influenza Virus Vaccine 2009-08-30 00:00:00 Completed [facility] Hep B, Adol or Pedi Dosage 2009-08-30 00:00:00 Completed [facility] Influenza Virus Vaccine 2009-08-30 00:00:00 Completed [facility] Hep B, Adol or Pedi Dosage 2009-08-30 00:00:00 Completed [facility] Influenza Virus Vaccine 2009-08-30 00:00:00 Completed [facility] Hep B, Adol or Pedi Dosage 2009-08-30 00:00:00 Completed [facility] Influenza Virus Vaccine 2009-08-30 00:00:00 Completed [facility] Hep B, Adol or Pedi Dosage 2009-08-30 00:00:00 Completed [facility] Influenza Virus Vaccine 2009-08-30 00:00:00 Completed [facility] Hep B, Adol or Pedi Dosage 2009-08-30 00:00:00 Completed [facility] Influenza Virus Vaccine 2009-08-30 00:00:00 Completed [facility] Hep B, Adol or Pedi Dosage 2009-08-30 00:00:00 Completed [facility] Influenza Virus Vaccine 2009-08-30 00:00:00 Completed [facility] Hep B, Adol or Pedi Dosage 2009-08-30 00:00:00 Completed [facility] Influenza Virus Vaccine 2009-08-30 00:00:00 Completed [facility] Hep B, Adol or Pedi Dosage 2009-08-30 00:00:00 Completed [facility] Influenza Virus Vaccine 2009-08-30 00:00:00 Completed [facility] Hep B, Adol or Pedi Dosage 2009-08-30 00:00:00 Completed [facility] Influenza Virus Vaccine 2009-08-30 00:00:00 Completed [facility] Hep B, Adol or Pedi Dosage 2009-08-30 00:00:00 Completed [facility] Influenza Virus Vaccine 2009-08-30 00:00:00 Completed [facility] Hep B, Adol or Pedi Dosage 2009-08-30 00:00:00 Completed [facility] Influenza Virus Vaccine 2009-08-30 00:00:00 Completed [facility] Hep B, Adol or Pedi Dosage 2009-08-30 00:00:00 Completed [facility] Influenza Virus Vaccine 2009-08-30 00:00:00 Completed [facility] Hep B, Adol or Pedi Dosage 2009-08-30 00:00:00 Completed [facility] Influenza Virus Vaccine 2009-08-30 00:00:00 Completed [facility] Hep B, Adol or Pedi Dosage 2009-08-30 00:00:00 Completed [facility] Influenza Virus Vaccine 2009-08-30 00:00:00 Completed [facility] Hep B, Adol or Pedi Dosage 2009-08-30 00:00:00 Completed [facility] Influenza Virus Vaccine 2009-08-30 00:00:00 Completed [facility] Hep B, Adol or Pedi Dosage 2009-08-30 00:00:00 Completed [facility] Influenza Virus Vaccine 2009-08-30 00:00:00 Completed [facility] Hep B, Adol or Pedi Dosage 2009-08-30 00:00:00 Completed [facility] Influenza Virus Vaccine 2009-08-30 00:00:00 Completed [facility] Hep B, Adol or Pedi Dosage 2009-08-30 00:00:00 Completed [facility] Influenza Virus Vaccine 2009-08-30 00:00:00 Completed [facility] Hep B, Adol or Pedi Dosage 2009-08-30 00:00:00 Completed [facility] Influenza Virus Vaccine 2009-08-30 00:00:00 Completed [facility] Hep B, Adol or Pedi Dosage 2009-08-30 00:00:00 Completed [facility] Influenza Virus Vaccine 2009-08-30 00:00:00 Completed [facility] Hep B, Adol or Pedi Dosage 2009-08-30 00:00:00 Completed [facility] Influenza Virus Vaccine 2009-08-30 00:00:00 Completed [facility] Hep B, Adol or Pedi Dosage 2009-08-30 00:00:00 Completed [facility] Influenza Virus Vaccine 2009-08-30 00:00:00 Completed [facility] Hep B, Adol or Pedi Dosage 2009-08-30 00:00:00 Completed [facility] Influenza Virus Vaccine 2009-08-30 00:00:00 Completed [facility] Hep B, Adol or Pedi Dosage 2009-08-30 00:00:00 Completed [facility] Influenza Virus Vaccine 2009-08-30 00:00:00 [facility] [facility] Hep B, Adol or Pedi Dosage 2009-08-30 00:00:00 Completed [facility] Influenza Virus Vaccine 2009-08-30 00:00:00 Completed [facility] Hep B, Adol or Pedi Dosage 2009-08-30 00:00:00 Completed [facility] Influenza Virus Vaccine 2009-08-30 00:00:00 Completed [facility] Hep B, Adol or Pedi Dosage 2009-08-30 00:00:00 Completed [facility] Influenza Virus Vaccine 2009-08-30 00:00:00 Completed [facility] Hep B, Adol or Pedi Dosage 2009-08-30 00:00:00 Completed [facility] Influenza Virus Vaccine 2009-08-30 00:00:00 Completed [facility] Hep B, Adol or Pedi Dosage 2009-08-30 00:00:00 Completed [facility] Influenza Virus Vaccine 2009-08-30 00:00:00 Completed [facility] Hep B, Adol or Pedi Dosage 2009-08-30 00:00:00 Completed [facility] Influenza Virus Vaccine 2009-08-30 00:00:00 Completed [facility] Hep B, Adol or Pedi Dosage 2009-08-30 00:00:00 Completed [facility] Influenza Virus Vaccine 2009-08-30 00:00:00 Completed [facility] Hep B, Adol or Pedi Dosage 2009-08-30 00:00:00 Completed [facility] Influenza Virus Vaccine 2009-08-30 00:00:00 Completed [facility] Hep B, Adol or Pedi Dosage 2009-08-30 00:00:00 Completed [facility] Influenza Virus Vaccine 2009-08-30 00:00:00 Completed Hep B, Adol or Pedi Dosage 2009-08-30 00:00:00 Completed [facility] Influenza Virus Vaccine 2009-08-30 00:00:00 Completed Hep B, Adol or Pedi Dosage 2009-08-30 00:00:00 Completed [facility] Influenza Virus Vaccine 2009-08-30 00:00:00 Completed Hep B, Adol or Pedi Dosage 2009-08-30 00:00:00 Completed [facility] Influenza Virus Vaccine 2009-08-30 00:00:00 Completed Hep B, Adol or Pedi Dosage 2009-08-30 00:00:00 Completed [facility] Influenza Virus Vaccine 2009-08-30 00:00:00 Completed Hep B, Adol or Pedi Dosage 2009-08-30 00:00:00 Completed [facility] Influenza Virus Vaccine 2009-08-30 00:00:00 Completed Hep B, Adol or Pedi Dosage 2009-08-30 00:00:00 Completed [facility] Influenza Virus Vaccine 2009-08-30 00:00:00 Completed Hep B, Adol or Pedi Dosage 2009-08-30 00:00:00 Completed [facility] Influenza Virus Vaccine 2009-08-30 00:00:00 Completed Hep B, Adol or Pedi Dosage 2009-08-30 00:00:00 Completed [facility] Influenza Virus Vaccine 2009-08-30 00:00:00 Completed Hep B, Adol or Pedi Dosage 2009-08-30 00:00:00 Completed [facility] Influenza Virus Vaccine 2009-08-30 00:00:00 Completed Hep B, Adol or Pedi Dosage 2009-08-02 00:00:00 Completed [facility] Hep B, Adol or Pedi Dosage 2009-08-02 00:00:00 Completed [facility] Hep B, Adol or Pedi Dosage 2009-08-02 00:00:00 Completed [facility] Hep B, Adol or Pedi Dosage 2009-08-02 00:00:00 Completed [facility] Hep B, Adol or Pedi Dosage 2009-08-02 00:00:00 Completed [facility] Hep B, Adol or Pedi Dosage 2009-08-02 00:00:00 Completed [facility] Hep B, Adol or Pedi Dosage 2009-08-02 00:00:00 Completed [facility] Hep B, Adol or Pedi Dosage 2009-08-02 00:00:00 Completed [facility] Hep B, Adol or Pedi Dosage 2009-08-02 00:00:00 Completed [facility] Hep B, Adol or Pedi Dosage 2009-08-02 00:00:00 Completed [facility] Hep B, Adol or Pedi Dosage 2009-08-02 00:00:00 Completed [facility] Hep B, Adol or Pedi Dosage 2009-08-02 00:00:00 Completed [facility] Hep B, Adol or Pedi Dosage 2009-08-02 00:00:00 Completed [facility] Hep B, Adol or Pedi Dosage 2009-08-02 00:00:00 Completed [facility] Hep B, Adol or Pedi Dosage 2009-08-02 00:00:00 Completed [facility] Hep B, Adol or Pedi Dosage 2009-08-02 00:00:00 Completed [facility] Hep B, Adol or Pedi Dosage 2009-08-02 00:00:00 Completed [facility] Hep B, Adol or Pedi Dosage 2009-08-02 00:00:00 Completed [facility] Hep B, Adol or Pedi Dosage 2009-08-02 00:00:00 Completed [facility] Hep B, Adol or Pedi Dosage 2009-08-02 00:00:00 Completed [facility] Hep B, Adol or Pedi Dosage 2009-08-02 00:00:00 Completed [facility] Hep B, Adol or Pedi Dosage 2009-08-02 00:00:00 Completed [facility] Hep B, Adol or Pedi Dosage 2009-08-02 00:00:00 Completed [facility] Hep B, Adol or Pedi Dosage 2009-08-02 00:00:00 Completed [facility] Hep B, Adol or Pedi Dosage 2009-08-02 00:00:00 Completed [facility] Hep B, Adol or Pedi Dosage 2009-08-02 00:00:00 Completed [facility] Hep B, Adol or Pedi Dosage 2009-08-02 00:00:00 Completed [facility] Hep B, Adol or Pedi Dosage 2009-08-02 00:00:00 Completed [facility] Hep B, Adol or Pedi Dosage 2009-08-02 00:00:00 Completed [facility] Hep B, Adol or Pedi Dosage 2009-08-02 00:00:00 Completed [facility] Hep B, Adol or Pedi Dosage 2009-08-02 00:00:00 Completed [facility] Hep B, Adol or Pedi Dosage 2009-08-02 00:00:00 Completed [facility] Hep B, Adol or Pedi Dosage 2009-08-02 00:00:00 Completed [facility] Hep B, Adol or Pedi Dosage 2009-08-02 00:00:00 Completed [facility] Hep B, Adol or Pedi Dosage 2009-08-02 00:00:00 Completed [facility] Hep B, Adol or Pedi Dosage 2009-08-02 00:00:00 Completed [facility] Hep B, Adol or Pedi Dosage 2009-08-02 00:00:00 Completed [facility] Hep B, Adol or Pedi Dosage 2009-08-02 00:00:00 Completed [facility] Hep B, Adol or Pedi Dosage 2009-08-02 00:00:00 Completed [facility] Hep B, Adol or Pedi Dosage 2009-08-02 00:00:00 Completed [facility] Hep B, Adol or Pedi Dosage 2009-08-02 00:00:00 Completed [facility] Hep B, Adol or Pedi Dosage 2009-08-02 00:00:00 Completed [facility] Hep B, Adol or Pedi Dosage 2009-08-02 00:00:00 Completed [facility] Hep B, Adol or Pedi Dosage 2009-08-02 00:00:00 Completed [facility] Hep B, Adol or Pedi Dosage 2009-08-02 00:00:00 Completed [facility] Hep B, Adol or Pedi Dosage 2009-08-02 00:00:00 Completed [facility] Hep B, Adol or Pedi Dosage 2009-08-02 00:00:00 Completed [facility] Hep B, Adol or Pedi Dosage 2009-08-02 00:00:00 Completed [facility] Hep B, Adol or Pedi Dosage 2009-08-02 00:00:00 Completed [facility] Hep B, Adol or Pedi Dosage 2009-08-02 00:00:00 Completed [facility] Hep B, Adol or Pedi Dosage 2009-08-02 00:00:00 Completed [facility] Hep B, Adol or Pedi Dosage 2009-08-02 00:00:00 Completed [facility] Hep B, Adol or Pedi Dosage 2009-08-02 00:00:00 Completed [facility] Hep B, Adol or Pedi Dosage 2009-08-02 00:00:00 Completed [facility] Hep B, Adol or Pedi Dosage 2009-08-02 00:00:00 Completed [facility] Hep B, Adol or Pedi Dosage 2009-08-02 00:00:00 Completed [facility] Hep B, Adol or Pedi Dosage 2009-08-02 00:00:00 Completed [facility] Hep B, Adol or Pedi Dosage 2009-08-02 00:00:00 Completed [facility] Hep B, Adol or Pedi Dosage 2009-08-02 00:00:00 Completed [facility] Hep B, Adol or Pedi Dosage 2009-08-02 00:00:00 Completed [facility] Hep B, Adol or Pedi Dosage 2009-08-02 00:00:00 Completed [facility] Hep B, Adol or Pedi Dosage 2009-08-02 00:00:00 Completed [facility] Hep B, Adol or Pedi Dosage 2009-08-02 00:00:00 Completed [facility] Hep B, Adol or Pedi Dosage 2009-08-02 00:00:00 Completed [facility] Hep B, Adol or Pedi Dosage 2009-08-02 00:00:00 Completed [facility] Hep B, Adol or Pedi Dosage 2009-08-02 00:00:00 Completed [facility] Hep B, Adol or Pedi Dosage 2009-08-02 00:00:00 Completed [facility] Hep B, Adol or Pedi Dosage 2009-08-02 00:00:00 Completed [facility] Hep B, Adol or Pedi Dosage 2009-08-02 00:00:00 Completed [facility] Hep B, Adol or Pedi Dosage 2009-08-02 00:00:00 Completed [facility] Hep B, Adol or Pedi Dosage 2009-08-02 00:00:00 Completed [facility] Hep B, Adol or Pedi Dosage 2009-08-02 00:00:00 Completed [facility] Hep B, Adol or Pedi Dosage 2009-08-02 00:00:00 Completed [facility] Hep B, Adol or Pedi Dosage 2009-08-02 00:00:00 Completed [facility] Hep B, Adol or Pedi Dosage 2009-08-02 00:00:00 Completed [facility] Hep B, Adol or Pedi Dosage 2009-08-02 00:00:00 Completed [facility] Hep B, Adol or Pedi Dosage 2009-08-02 00:00:00 Completed [facility] Hep B, Adol or Pedi Dosage 2009-08-02 00:00:00 Completed [facility] Hep B, Adol or Pedi Dosage 2009-08-02 00:00:00 Completed [facility] Hep B, Adol or Pedi Dosage 2009-08-02 00:00:00 Completed [facility] Hep B, Adol or Pedi Dosage 2009-08-02 00:00:00 Completed [facility] Hep B, Adol or Pedi Dosage 2009-08-02 00:00:00 Completed [facility] Hep B, Adol or Pedi Dosage 2009-08-02 00:00:00 Completed [facility] Hep B, Adol or Pedi Dosage 2009-08-02 00:00:00 Completed [facility] Hep B, Adol or Pedi Dosage 2009-08-02 00:00:00 Completed [facility] Hep B, Adol or Pedi Dosage 2009-08-02 00:00:00 Completed [facility] Hep B, Adol or Pedi Dosage 2009-08-02 00:00:00 Completed [facility] Hep B, Adol or Pedi Dosage 2009-08-02 00:00:00 Completed [facility] H1n1 Vaccine Unknown Completed [facility] Influenza Virus Vaccine (3+ yrs) Unknown Completed [facility] Influenza Virus Vaccine Quad IM Multi-dose 6+ MO Unknown Completed [facility] TDAP Unknown Completed [facility] Influenza Virus Vaccine Quad IM 3+ YRS Unknown Completed [facility] Pneumococcal 13 Conjugate, PCV13 (Prevnar 13) Unknown Completed [facility] SARS-COV-2 COVID-19 PFIZER VACCINE Unknown Completed [facility] Influenza Virus Vaccine,quad Im,preserve Free 65+ (FLUAD) Unknown Completed [facility] Hep B, Adol or Pedi Dosage Unknown Completed [facility] Influenza Virus Vaccine Unknown Completed [facility] Influenza Virus Vaccine Quad ID 18-64 YRS Unknown Completed [facility] Pneumococcal Polysaccharide, PPSV23 (PNEUMOVAX) Unknown Completed [facility] Hep B, Adol or Pedi Dosage Unknown Completed [facility] Influenza Virus Vaccine Unknown Completed [facility] Pneumococcal Polysaccharide, PPSV23 (PNEUMOVAX) Unknown Completed [facility] H1n1 Vaccine Unknown Completed [facility] Influenza Virus Vaccine (3+ yrs) Unknown Completed [facility] Influenza Virus Vaccine Quad ID 18-64 YRS Unknown Completed [facility] Influenza Virus Vaccine Quad IM Multi-dose 6+ MO Unknown Completed [facility] TDAP Unknown Completed [facility] Influenza Virus Vaccine Quad IM 3+ YRS Unknown Completed [facility] Pneumococcal 13 Conjugate, PCV13 (Prevnar 13) Unknown Completed [facility] SARS-COV-2 COVID-19 PFIZER VACCINE Unknown Completed [facility] Influenza Virus Vaccine,quad Im,preserve Free 65+ (FLUAD) Unknown Completed [facility] Hep B, Adol or Pedi Dosage Unknown Completed [facility] Influenza Virus Vaccine Unknown Completed [facility] H1n1 Vaccine Unknown Completed [facility] Influenza Virus Vaccine (3+ yrs) Unknown Completed [facility] Influenza Virus Vaccine Quad IM Multi-dose 6+ MO Unknown Completed [facility] TDAP Unknown Completed [facility] Influenza Virus Vaccine Quad IM 3+ YRS Unknown Completed [facility] Pneumococcal 13 Conjugate, PCV13 (Prevnar 13) Unknown Completed [facility] SARS-COV-2 COVID-19 PFIZER VACCINE Unknown Completed [facility] Influenza Virus Vaccine,quad Im,preserve Free 65+ (FLUAD) Unknown Completed [facility] Influenza Virus Vaccine Quad ID 18-64 YRS Unknown Completed [facility] Pneumococcal Polysaccharide, PPSV23 (PNEUMOVAX) Unknown Completed [facility] Hep B, Adol or Pedi Dosage Unknown Completed [facility] Influenza Virus Vaccine Unknown Completed [facility] Pneumococcal Polysaccharide, PPSV23 (PNEUMOVAX) Unknown [facility] H1n1 Vaccine Unknown [facility] Influenza Virus Vaccine (3+ yrs) Unknown Completed [facility] Influenza Virus Vaccine Quad ID 18-64 YRS Unknown Completed [facility] Influenza Virus Vaccine Quad IM Multi-dose 6+ MO Unknown Completed [facility] TDAP Unknown Completed [facility] Influenza Virus Vaccine Quad IM 3+ YRS Unknown Completed [facility] Pneumococcal 13 Conjugate, PCV13 (Prevnar 13) Unknown Completed [facility] SARS-COV-2 COVID-19 PFIZER VACCINE Unknown Completed [facility] Influenza Virus Vaccine,quad Im,preserve Free 65+ (FLUAD) Unknown Completed [facility] Hep B, Adol or Pedi Dosage Unknown Completed [facility] Influenza Virus Vaccine Unknown Completed [facility] Pneumococcal Polysaccharide, PPSV23 (PNEUMOVAX) Unknown Completed [facility] H1n1 Vaccine Unknown Completed [facility] Influenza Virus Vaccine (3+ yrs) Unknown Completed [facility] Influenza Virus Vaccine Quad ID 18-64 YRS Unknown Completed [facility] Influenza Virus Vaccine Quad IM Multi-dose 6+ MO Unknown Completed [facility] TDAP Unknown Completed [facility] Influenza Virus Vaccine Quad IM 3+ YRS Unknown Completed [facility] Pneumococcal 13 Conjugate, PCV13 (Prevnar 13) Unknown Completed [facility] SARS-COV-2 COVID-19 PFIZER VACCINE Unknown Completed [facility] Hep B, Adol or Pedi Dosage Unknown Completed [facility] Influenza Virus Vaccine Unknown Completed [facility] Pneumococcal Polysaccharide, PPSV23 (PNEUMOVAX) Unknown Completed [facility] H[facility]ine [facility] Unknown Completed [facility] Influenza Virus Vaccine Quad ID 18-64 YRS Unknown Completed [facility] Influenza Virus Vaccine Quad IM Multi-dose 6+ MO Unknown Completed [facility] TDAP Unknown Completed [facility] Influenza Virus Vaccine Quad IM 3+ YRS Unknown Completed [facility] Pneumococcal 13 Conjugate, PCV13 (Prevnar 13) Unknown Completed [facility] SARS-COV-2 COVID-19 PFIZER VACCINE Unknown Completed [facility] Hep B, Adol or Pedi Dosage Unknown Completed [facility] Influenza Virus Vaccine Unknown Completed [facility] Pneumococcal Polysaccharide, PPSV23 (PNEUMOVAX) Unknown Completed [facility] H1n1 Vaccine Unknown Completed [facility] Influenza Virus Vaccine (3+ yrs) Unknown Completed [facility] Influenza Virus Vaccine Quad ID 18-64 YRS Unknown Completed [facility] Influenza Virus Vaccine Quad IM Multi-dose 6+ MO Unknown Completed [facility] TDAP Unknown Completed [facility] Influenza Virus Vaccine Quad IM 3+ YRS Unknown Completed [facility] Pneumococcal 13 Conjugate, PCV13 (Prevnar 13) Unknown Completed [facility] SARS-COV-2 COVID-19 PFIZER VACCINE Unknown Completed [facility] Hep B, Adol or Pedi Dosage Unknown Completed [facility] Influenza Virus Vaccine Unknown Completed [facility] Pneumococcal Polysaccharide, PPSV23 (PNEUMOVAX) Unknown Completed [facility] H1n1 Vaccine Unknown Completed [facility] Influenza Virus Vaccine (3+ yrs) Unknown Completed [facility] Influenza Virus Vaccine Quad ID 18-64 YRS Unknown Completed [facility] Influenza Virus Vaccine Quad IM Multi-dose 6+ MO Unknown Completed [facility] TDAP Unknown Completed [facility] Influenza Virus Vaccine Quad IM 3+ YRS Unknown Completed [facility] Pneumococcal 13 Conjugate, PCV13 (Prevnar 13) Unknown Completed [facility] SARS-COV-2 COVID-19 PFIZER VACCINE Unknown Completed [facility] Hep B, Adol or Pedi Dosage Unknown Completed [facility] Influenza Virus Vaccine Unknown Completed [facility] Pneumococcal Polysaccharide, PPSV23 (PNEUMOVAX) Unknown Completed [facility] H[facility]n1 [facility]ine (3+ yrs) Unknown Completed [facility] Influenza Virus Vaccine Quad ID 18-64 YRS Unknown Completed [facility] Influenza Virus Vaccine Quad IM Multi-dose 6+ MO Unknown Completed [facility] TDAP Unknown Completed [facility] Influenza Virus Vaccine Quad IM 3+ YRS Unknown Completed [facility] Pneumococcal 13 Conjugate, PCV13 (Prevnar 13) Unknown Completed [facility] SARS-COV-2 COVID-19 PFIZER VACCINE Unknown Completed [facility] Hep B, Adol or Pedi Dosage Unknown Completed [facility] Influenza Virus Vaccine Unknown Completed [facility] Pneumococcal Polysaccharide, PPSV23 (PNEUMOVAX) Unknown Completed [facility] H1n1 Vaccine Unknown Completed [facility] Influenza Virus Vaccine (3+ yrs) Unknown Completed [facility] Influenza Virus Vaccine Quad ID 18-64 YRS Unknown Completed [facility] Influenza Virus Vaccine Quad IM Multi-dose 6+ MO Unknown Completed [facility] TDAP Unknown Completed [facility] Influenza Virus Vaccine Quad IM 3+ YRS Unknown Completed [facility] Pneumococcal 13 Conjugate, PCV13 (Prevnar 13) Unknown Completed [facility] SARS-COV-2 COVID-19 PFIZER VACCINE Unknown Completed [facility] Hep B, Adol or Pedi Dosage Unknown Completed [facility] Influenza Virus Vaccine Unknown Completed [facility] Pneumococcal Polysaccharide, PPSV23 (PNEUMOVAX) Unknown Completed [facility] H1n1 Vaccine Unknown Completed [facility] Influenza Virus Vaccine (3+ yrs) Unknown Completed [facility] Influenza Virus Vaccine Quad ID 18-64 YRS Unknown Completed [facility] Influenza Virus Vaccine Quad IM Multi-dose 6+ MO Unknown Completed [facility] TDAP Unknown Completed [facility] Influenza Virus Vaccine Quad IM 3+ YRS Unknown Completed [facility] Pneumococcal 13 Conjugate, PCV13 (Prevnar 13) Unknown Completed [facility] SARS-COV-2 COVID-19 PFIZER VACCINE Unknown Completed [facility] Hep B, Adol or Pedi Dosage Unknown Completed [facility] Influenza Virus Vaccine Unknown Completed [facility] Pneumococcal Polysaccharide, PPSV23 (PNEUMOVAX) Unknown Completed [facility] H1n1 Vaccine Unknown Completed [facility] Influenza Virus Vaccine (3+ yrs) Unknown Completed [facility] Influenza Virus Vaccine Quad ID 18-64 YRS Unknown Completed [facility] Influenza Virus Vaccine Quad IM Multi-dose 6+ MO Unknown Completed [facility] TDAP Unknown Completed [facility] Influenza Virus Vaccine Quad IM 3+ YRS Unknown Completed [facility] Pneumococcal 13 Conjugate, PCV13 (Prevnar 13) Unknown Completed [facility] SARS-COV-2 COVID-19 PFIZER VACCINE Unknown Completed [facility] Hep B, Adol or Pedi Dosage Unknown Completed [facility] Influenza Virus Vaccine Unknown Completed [facility] Pneumococcal Polysaccharide, PPSV23 (PNEUMOVAX) Unknown Completed [facility] H1n1 Vaccine Unknown Completed [facility] Influenza Virus Vaccine (3+ yrs) Unknown Completed [facility] Influenza Virus Vaccine Quad ID 18-64 YRS Unknown Completed [facility] Influenza Virus Vaccine Quad IM Multi-dose 6+ MO Unknown Completed [facility] TDAP Unknown Completed [facility] Influenza Virus Vaccine Quad IM 3+ YRS Unknown Completed [facility] Pneumococcal 13 Conjugate, PCV13 (Prevnar 13) Unknown Completed [facility] Hep B, Adol or Pedi Dosage Unknown Completed [facility] Influenza Virus Vaccine Unknown Completed [facility] Pneumococcal Polysaccharide, PPSV23 (PNEUMOVAX) Unknown Completed [facility] H1n1 Vaccine Unknown Completed [facility] Influenza Virus Vaccine (3+ yrs) Unknown Completed [facility] Influenza Virus Vaccine Quad ID 18-64 YRS Unknown Completed [facility] Influenza Virus Vaccine Quad IM Multi-dose 6+ MO Unknown Completed [facility] TDAP Unknown Completed [facility] Influenza Virus Vaccine Quad IM 3+ YRS Unknown Completed [facility] Hep B, Adol or Pedi Dosage Unknown Completed [facility] Influenza Virus Vaccine Unknown Completed [facility] Pneumococcal Polysaccharide, PPSV23 (PNEUMOVAX) Unknown Completed [facility] H1n1 Vaccine Unknown Completed [facility] Influenza Virus Vaccine (3+ yrs) Unknown Completed [facility] Influenza Virus Vaccine Quad ID 18-64 YRS Unknown Completed [facility] Influenza Virus Vaccine Quad IM Multi-dose 6+ MO Unknown Completed [facility] TDAP Unknown Completed [facility] Influenza Virus Vaccine Quad IM 3+ YRS Unknown Completed [facility] Hep B, Adol or Pedi Dosage Unknown Completed [facility] Influenza Virus Vaccine Unknown Completed [facility] Pneumococcal Polysaccharide, PPSV23 (PNEUMOVAX) Unknown Completed [facility] H1n1 Vaccine Unknown Completed [facility] Influenza Virus Vaccine (3+ yrs) Unknown Completed [facility] Influenza Virus Vaccine Quad ID 18-64 YRS Unknown Completed [facility] Influenza Virus Vaccine Quad IM Multi-dose 6+ MO Unknown Completed [facility] TDAP Unknown Completed [facility] Influenza Virus Vaccine Quad IM 3+ YRS Unknown Completed [facility] Pneumococcal 13 Conjugate, PCV13 (Prevnar 13) Unknown Completed [facility] SARS-COV-2 COVID-19 PFIZER VACCINE Unknown Completed [facility] Influenza Virus Vaccine,quad Im,preserve Free 65+ (FLUAD) Unknown Completed [facility] Hep B, Adol or Pedi Dosage Unknown Completed [facility] Influenza Virus Vaccine Unknown Completed [facility] Pneumococcal Polysaccharide, PPSV23 (PNEUMOVAX) Unknown [facility] H1n1 Vaccine Unknown Completed [facility] Influenza Virus Vaccine (3+ yrs) Unknown Completed [facility] Influenza Virus Vaccine Quad ID 18-64 YRS Unknown Completed [facility] Influenza Virus Vaccine Quad IM Multi-dose 6+ MO Unknown Completed [facility] TDAP Unknown Completed [facility] Influenza Virus Vaccine Quad IM 3+ YRS Unknown Completed [facility] Pneumococcal 13 Conjugate, PCV13 (Prevnar 13) Unknown Completed [facility] SARS-COV-2 COVID-19 PFIZER VACCINE Unknown Completed [facility] Influenza Virus Vaccine,quad Im,preserve Free 65+ (FLUAD) Unknown Completed [facility] H1n1 Vaccine Unknown Completed [facility] Influenza Virus Vaccine (3+ yrs) Unknown Completed [facility] Influenza Virus Vaccine Quad IM Multi-dose 6+ MO Unknown Completed [facility] TDAP Unknown Completed [facility] Influenza Virus Vaccine Quad IM 3+ YRS Unknown Completed [facility] Pneumococcal 13 Conjugate, PCV13 (Prevnar 13) Unknown Completed [facility] SARS-COV-2 COVID-19 PFIZER VACCINE Unknown Completed [facility] Influenza Virus Vaccine,quad Im,preserve Free 65+ (FLUAD) Unknown Completed [facility] Hep B, Adol or Pedi Dosage Unknown Completed [facility] Influenza Virus Vaccine Unknown Completed [facility] Pneumococcal Polysaccharide, PPSV23 (PNEUMOVAX) [facility] Influenza Virus Vaccine (3+ yrs) Unknown Completed [facility] Influenza Virus Vaccine Quad ID 18-64 YRS Unknown Completed [facility] Influenza Virus Vaccine Quad IM Multi-dose 6+ MO Unknown Completed [facility] TDAP Unknown Completed [facility] Influenza Virus Vaccine Quad IM 3+ YRS Unknown Completed [facility] Pneumococcal 13 Conjugate, PCV13 (Prevnar 13) Unknown Completed [facility] SARS-COV-2 COVID-19 PFIZER VACCINE Unknown Completed [facility] Influenza Virus Vaccine,quad Im,preserve Free 65+ (FLUAD) Unknown Completed [facility] Hep B, Adol or Pedi Dosage Unknown Completed [facility] Influenza Virus Vaccine Unknown Completed [facility] Influenza Virus Vaccine Quad ID 18-64 YRS Unknown Completed [facility] Pneumococcal Polysaccharide, PPSV23 (PNEUMOVAX) Unknown Completed [facility] Hep B, Adol or Pedi Dosage Unknown Completed [facility] Influenza Virus Vaccine Unknown Completed [facility] Pneumococcal Polysaccharide, PPSV23 (PNEUMOVAX) Unknown Completed [facility] H1n1 Vaccine Unknown Completed [facility] Influenza Virus Vaccine (3+ yrs) Unknown Completed [facility] Influenza Virus Vaccine Quad ID 18-64 YRS Unknown Completed [facility] Influenza Virus Vaccine Quad IM Multi-dose 6+ MO Unknown Completed [facility] TDAP Unknown Completed [facility] Influenza Virus Vaccine Quad IM 3+ YRS Unknown Completed [facility] Pneumococcal 13 Conjugate, PCV13 (Prevnar 13) Unknown Completed [facility] SARS-COV-2 COVID-19 PFIZER VACCINE Unknown Completed [facility] Influenza Virus Vaccine,quad Im,preserve Free 65+ (FLUAD) Unknown Completed [facility] Hep B, Adol or Pedi Dosage Unknown Completed [facility] Influenza Virus Vaccine Unknown Completed [facility] Pneumococcal Polysaccharide, PPSV23 (PNEUMOVAX) Unknown Completed [facility] H1n1 Vaccine Unknown Completed [facility] Influenza Virus Vaccine (3+ yrs) Unknown Completed [facility] Influenza Virus Vaccine Quad ID 18-64 YRS Unknown Completed [facility] Influenza Virus Vaccine Quad IM Multi-dose 6+ MO Unknown Completed [facility] TDAP Unknown Completed [facility] Influenza Virus Vaccine Quad IM 3+ YRS Unknown Completed [facility] Pneumococcal 13 Conjugate, PCV13 (Prevnar 13) Unknown Completed [facility] SARS-COV-2 COVID-19 PFIZER VACCINE Unknown Completed [facility] Influenza Virus Vaccine,quad Im,preserve Free 65+ (FLUAD) Unknown Completed [facility] H1n1 Vaccine Unknown Completed [facility] Influenza Virus Vaccine (3+ yrs) Unknown Completed [facility] Influenza Virus Vaccine Quad IM Multi-dose 6+ MO Unknown Completed [facility] TDAP Unknown Completed [facility] Influenza Virus Vaccine Quad IM 3+ YRS Unknown Completed [facility] Pneumococcal 13 Conjugate, PCV13 (Prevnar 13) Unknown Completed [facility] SARS-COV-2 COVID-19 PFIZER VACCINE Unknown Completed [facility] Influenza Virus Vaccine,quad Im,preserve Free 65+ (FLUAD) Unknown Completed [facility] Hep B, Adol or Pedi Dosage Unknown Completed [facility] Influenza Virus Vaccine Unknown Completed [facility] Influenza Virus Vaccine Quad ID 18-64 YRS Unknown Completed [facility] Pneumococcal Polysaccharide, PPSV23 (PNEUMOVAX) Unknown Completed [facility] Hep B, Adol or Pedi Dosage Unknown Completed [facility] Influenza Virus Vaccine Unknown Completed [facility] Pneumococcal Polysaccharide, PPSV23 (PNEUMOVAX) Unknown Completed [facility] H1n1 Vaccine Unknown Completed [facility] Influenza Virus Vaccine (3+ yrs) Unknown Completed [facility] Influenza Virus Vaccine Quad ID 18-64 YRS Unknown Completed [facility] Influenza Virus Vaccine Quad IM Multi-dose 6+ MO Unknown Completed [facility] TDAP Unknown Completed [facility] Influenza Virus Vaccine Quad IM 3+ YRS Unknown Completed [facility] Pneumococcal 13 Conjugate, PCV13 (Prevnar 13) Unknown Completed [facility] SARS-COV-2 COVID-19 PFIZER VACCINE Unknown Completed [facility] Influenza Virus Vaccine,quad Im,preserve Free 65+ (FLUAD) Unknown Completed [facility] Hep B, Adol or Pedi Dosage Unknown Completed [facility] Influenza Virus Vaccine Unknown Completed [facility] Pneumococcal Polysaccharide, PPSV23 (PNEUMOVAX) Unknown Completed [facility] H1n1 Vaccine Unknown Completed [facility] Influenza Virus Vaccine (3+ yrs) Unknown Completed [facility] Influenza Virus Vaccine Quad ID 18-64 YRS Unknown Completed [facility] Influenza Virus Vaccine Quad IM Multi-dose 6+ MO Unknown Completed [facility] TDAP Unknown Completed [facility] Influenza Virus Vaccine Quad IM 3+ YRS Unknown Completed [facility] Pneumococcal 13 Conjugate, PCV13 (Prevnar 13) Unknown Completed [facility] SARS-COV-2 COVID-19 PFIZER VACCINE Unknown Completed [facility] Influenza Virus Vaccine,quad Im,preserve Free 65+ (FLUAD) Unknown Completed [facility] H1n1 Vaccine Unknown Completed [facility] Influenza Virus Vaccine (3+ yrs) Unknown Completed [facility] Influenza Virus Vaccine Quad IM Multi-dose 6+ MO Unknown Completed [facility] TDAP Unknown Completed [facility] Influenza Virus Vaccine Quad IM 3+ YRS Unknown Completed [facility] Pneumococcal 13 Conjugate, PCV13 (Prevnar 13) Unknown Completed [facility] SARS-COV-2 COVID-19 PFIZER VACCINE Unknown Completed [facility] Influenza Virus Vaccine,quad Im,preserve Free 65+ (FLUAD) Unknown Completed [facility] Hep B, Adol or Pedi Dosage Unknown Completed [facility] Influenza Virus Vaccine Unknown Completed [facility] Influenza Virus Vaccine Quad ID 18-64 YRS Unknown Completed [facility] Pneumococcal Polysaccharide, PPSV23 (PNEUMOVAX) Unknown Completed [facility] Hep B, Adol or Pedi Dosage Unknown Completed [facility] Influenza Virus Vaccine Unknown Completed [facility] Pneumococcal Polysaccharide, PPSV23 (PNEUMOVAX) Unknown Completed [facility] H1n1 Vaccine Unknown Completed [facility] Influenza Virus Vaccine (3+ yrs) Unknown Completed [facility] Influenza Virus Vaccine Quad ID 18-64 YRS Unknown Completed [facility] Influenza Virus Vaccine Quad IM Multi-dose 6+ MO Unknown Completed [facility] TDAP Unknown Completed [facility] Influenza Virus Vaccine Quad IM 3+ YRS Unknown Completed [facility] Pneumococcal 13 Conjugate, PCV13 (Prevnar 13) Unknown Completed [facility] SARS-COV-2 COVID-19 PFIZER VACCINE Unknown Completed [facility] Influenza Virus Vaccine,quad Im,preserve Free 65+ (FLUAD) Unknown Completed [facility] Hep B, Adol or Pedi Dosage Unknown Completed [facility] Influenza Virus Vaccine Unknown Completed [facility] Pneumococcal Polysaccharide, PPSV23 (PNEUMOVAX) Unknown Completed [facility] H1n1 Vaccine Unknown Completed [facility] Influenza Virus Vaccine (3+ yrs) Unknown Completed [facility] Influenza Virus Vaccine Quad ID 18-64 YRS Unknown Completed [facility] Influenza Virus Vaccine Quad IM Multi-dose 6+ MO Unknown Completed [facility] TDAP Unknown Completed [facility] Influenza Virus Vaccine Quad IM 3+ YRS Unknown Completed [facility] Pneumococcal 13 Conjugate, PCV13 (Prevnar 13) Unknown Completed [facility] SARS-COV-2 COVID-19 PFIZER VACCINE Unknown Completed [facility] Influenza Virus Vaccine,quad Im,preserve Free 65+ (FLUAD) Unknown Completed [facility] Hep B, Adol or Pedi Dosage Unknown Completed [facility] Influenza Virus Vaccine Unknown Completed [facility] Pneumococcal Polysaccharide, PPSV23 (PNEUMOVAX) Unknown [facility] Vaccine Unknown Completed [facility] Influenza Virus Vaccine (3+ yrs) Unknown Completed [facility] Influenza Virus Vaccine Quad ID 18-64 YRS Unknown Completed [facility] Influenza Virus Vaccine Quad IM Multi-dose 6+ MO Unknown Completed [facility] TDAP Unknown Completed [facility] Influenza Virus Vaccine Quad IM 3+ YRS Unknown Completed [facility] Pneumococcal 13 Conjugate, PCV13 (Prevnar 13) Unknown Completed [facility] SARS-COV-2 COVID-19 PFIZER VACCINE Unknown Completed [facility] Influenza Virus Vaccine,quad Im,preserve Free 65+ (FLUAD) Unknown Completed [facility] Hep B, Adol or Pedi Dosage Unknown Completed [facility] Influenza Virus Vaccine Unknown Completed [facility] Pneumococcal Polysaccharide, PPSV23 (PNEUMOVAX) Unknown [facility] H[facility] Vaccine Unknown Completed [facility] Influenza Virus Vaccine (3+ yrs) Unknown Completed [facility] Influenza Virus Vaccine Quad ID 18-64 YRS Unknown Completed [facility] Influenza Virus Vaccine Quad IM Multi-dose 6+ MO Unknown Completed [facility] TDAP Unknown Completed [facility] Influenza Virus Vaccine Quad IM 3+ YRS Unknown Completed [facility] Pneumococcal 13 Conjugate, PCV13 (Prevnar 13) Unknown Completed [facility] SARS-COV-2 COVID-19 PFIZER VACCINE Unknown Completed [facility] Influenza Virus Vaccine,quad Im,preserve Free 65+ (FLUAD) Unknown Completed [facility] Hep B, Adol or Pedi Dosage Unknown Completed [facility] Influenza Virus Vaccine Unknown Completed [facility] Pneumococcal Polysaccharide, PPSV23 (PNEUMOVAX) Unknown Completed [facility] H1n1 Vaccine Unknown [facility] Vaccine (3+ yrs) Unknown Completed [facility] Influenza Virus Vaccine Quad ID 18-64 YRS Unknown Completed [facility] Influenza Virus Vaccine Quad IM Multi-dose 6+ MO Unknown Completed [facility] TDAP Unknown Completed [facility] Influenza Virus Vaccine Quad IM 3+ YRS Unknown Completed [facility] Pneumococcal 13 Conjugate, PCV13 (Prevnar 13) Unknown Completed [facility] SARS-COV-2 COVID-19 PFIZER VACCINE Unknown Completed [facility] Influenza Virus Vaccine,quad Im,preserve Free 65+ (FLUAD) Unknown Completed [facility] H1n1 Vaccine Unknown Completed [facility] Influenza Virus Vaccine (3+ yrs) Unknown Completed [facility] Influenza Virus Vaccine Quad IM Multi-dose 6+ MO Unknown Completed [facility] TDAP Unknown Completed [facility] Pneumococcal 13 Conjugate, PCV13 (Prevnar 13) Unknown Completed [facility] Hep B, Adol or Pedi Dosage Unknown Completed [facility] Influenza Virus Vaccine Unknown Completed [facility] Influenza Virus Vaccine Quad ID 18-64 YRS Unknown Completed [facility] Influenza Virus Vaccine Quad IM 3+ YRS Unknown Completed [facility] SARS-COV-2 COVID-19 PFIZER VACCINE Unknown Completed [facility] Pneumococcal Polysaccharide, PPSV23 (PNEUMOVAX) Unknown Completed [facility] Influenza Virus Vaccine,quad Im,preserve Free 65+ (FLUAD) Unknown Completed [facility] Hep B, Adol or Pedi Dosage Unknown Completed [facility] Influenza Virus Vaccine Unknown Completed [facility] Pneumococcal Polysaccharide, PPSV23 (PNEUMOVAX) Unknown Completed [facility] H1n1 Vaccine Unknown Completed [facility] Influenza Virus Vaccine (3+ yrs) Unknown Completed [facility] Influenza Virus Vaccine Quad ID 18-64 YRS Unknown Completed [facility] Influenza Virus Vaccine Quad IM Multi-dose 6+ MO Unknown Completed [facility] TDAP Unknown Completed [facility] Influenza Virus Vaccine Quad IM 3+ YRS Unknown Completed [facility] Pneumococcal 13 Conjugate, PCV13 (Prevnar 13) Unknown Completed [facility] SARS-COV-2 COVID-19 PFIZER VACCINE Unknown Completed [facility] Influenza Virus Vaccine,quad Im,preserve Free 65+ (FLUAD) Unknown Completed [facility] Hep B, Adol or Pedi Dosage Unknown Completed [facility] Influenza Virus Vaccine Unknown Completed [facility] Pneumococcal Polysaccharide, PPSV23 (PNEUMOVAX) Unknown Completed [facility] H1n1 Vaccine Unknown Completed [facility] Influenza Virus Vaccine (3+ yrs) Unknown Completed [facility] Influenza Virus Vaccine Quad ID 18-64 YRS Unknown Completed [facility] Influenza Virus Vaccine Quad IM Multi-dose 6+ MO Unknown Completed [facility] TDAP Unknown Completed [facility] Influenza Virus Vaccine Quad IM 3+ YRS Unknown Completed [facility] Pneumococcal 13 Conjugate, PCV13 (Prevnar 13) Unknown Completed [facility] SARS-COV-2 COVID-19 PFIZER VACCINE Unknown Completed [facility] Influenza Virus Vaccine,quad Im,preserve Free 65+ (FLUAD) Unknown Completed [facility] Hep B, Adol or Pedi Dosage Unknown Completed [facility] Influenza Virus Vaccine Unknown Completed [facility] Pneumococcal Polysaccharide, PPSV23 (PNEUMOVAX) Unknown Completed [facility] H1n1 Vaccine Unknown Completed [facility] Influenza Virus Vaccine (3+ yrs) Unknown Completed [facility] Influenza Virus Vaccine Quad ID 18-64 YRS Unknown Completed [facility] Influenza Virus Vaccine Quad IM Multi-dose 6+ MO Unknown Completed [facility] TDAP Unknown Completed [facility] Influenza Virus Vaccine Quad IM 3+ YRS Unknown Completed [facility] Pneumococcal 13 Conjugate, PCV13 (Prevnar 13) Unknown Completed [facility] SARS-COV-2 COVID-19 PFIZER VACCINE Unknown Completed [facility] Influenza Virus Vaccine,quad Im,preserve Free 65+ (FLUAD) Unknown Completed [facility] Hep B, Adol or Pedi Dosage Unknown Completed [facility] Influenza Virus Vaccine Unknown Completed [facility] Pneumococcal Polysaccharide, PPSV23 (PNEUMOVAX) Unknown Completed [facility] H1n1 Vaccine Unknown Completed [facility] Influenza Virus Vaccine (3+ yrs) Unknown Completed [facility] Influenza Virus Vaccine Quad ID 18-64 YRS Unknown Completed [facility] Influenza Virus Vaccine Quad IM Multi-dose 6+ MO Unknown Completed [facility] TDAP Unknown Completed [facility] Influenza Virus Vaccine Quad IM 3+ YRS Unknown Completed [facility] Pneumococcal 13 Conjugate, PCV13 (Prevnar 13) Unknown Completed [facility] SARS-COV-2 COVID-19 PFIZER VACCINE Unknown Completed [facility] Influenza Virus Vaccine,quad Im,preserve Free 65+ (FLUAD) Unknown Completed [facility] Hep B, Adol or Pedi Dosage Unknown Completed [facility] Influenza Virus Vaccine Unknown Completed [facility] Pneumococcal Polysaccharide, PPSV23 (PNEUMOVAX) Unknown Completed [facility] H1n1 Vaccine Unknown Completed [facility] Influenza Virus Vaccine (3+ yrs) Unknown Completed [facility] Influenza Virus Vaccine Quad ID 18-64 YRS Unknown Completed [facility] Influenza Virus Vaccine Quad IM Multi-dose 6+ MO Unknown Completed [facility] TDAP Unknown Completed [facility] Influenza Virus Vaccine Quad IM 3+ YRS Unknown Completed [facility] Pneumococcal 13 Conjugate, PCV13 (Prevnar 13) Unknown Completed [facility] SARS-COV-2 COVID-19 PFIZER VACCINE Unknown Completed [facility] Influenza Virus Vaccine,quad Im,preserve Free 65+ (FLUAD) Unknown Completed [facility] Hep B, Adol or Pedi Dosage Unknown Completed [facility] Influenza Virus Vaccine Unknown Completed [facility] Pneumococcal Polysaccharide, PPSV23 (PNEUMOVAX) Unknown [facility] H[facility] Vaccine Unknown [facility] (3+ yrs) Unknown Completed [facility] Influenza Virus Vaccine Quad ID 18-64 YRS Unknown Completed [facility] Influenza Virus Vaccine Quad IM Multi-dose 6+ MO Unknown Completed [facility] TDAP Unknown Completed [facility] Influenza Virus Vaccine Quad IM 3+ YRS Unknown Completed [facility] Pneumococcal 13 Conjugate, PCV13 (Prevnar 13) Unknown Completed [facility] SARS-COV-2 COVID-19 PFIZER VACCINE Unknown Completed [facility] Influenza Virus Vaccine,quad Im,preserve Free 65+ (FLUAD) Unknown Completed [facility] Hep B, Adol or Pedi Dosage Unknown Completed [facility] Influenza Virus Vaccine Unknown Completed [facility] Pneumococcal Polysaccharide, PPSV23 (PNEUMOVAX) Unknown Completed [facility] H1n1 Vaccine Unknown Completed [facility] Influenza Virus Vaccine (3+ yrs) Unknown Completed [facility] Influenza Virus Vaccine Quad ID 18-64 YRS Unknown Completed [facility] Influenza Virus Vaccine Quad IM Multi-dose 6+ MO Unknown Completed [facility] TDAP Unknown Completed [facility] Influenza Virus Vaccine Quad IM 3+ YRS Unknown Completed [facility] Pneumococcal 13 Conjugate, PCV13 (Prevnar 13) Unknown Completed [facility] SARS-COV-2 COVID-19 PFIZER VACCINE Unknown Completed [facility] Influenza Virus Vaccine,quad Im,preserve Free 65+ (FLUAD) Unknown Completed [facility] Hep B, Adol or Pedi Dosage Unknown Completed [facility] Influenza Virus Vaccine Unknown Completed [facility] Pneumococcal Polysaccharide, PPSV23 (PNEUMOVAX) Unknown Completed [facility] H1n1 Vaccine Unknown Completed [facility] Influenza Virus Vaccine (3+ yrs) Unknown Completed [facility] Influenza Virus Vaccine Quad ID 18-64 YRS Unknown Completed [facility] Influenza Virus Vaccine Quad IM Multi-dose 6+ MO Unknown Completed [facility] TDAP Unknown Completed [facility] Influenza Virus Vaccine Quad IM 3+ YRS Unknown Completed [facility] Pneumococcal 13 Conjugate, PCV13 (Prevnar 13) Unknown Completed [facility] SARS-COV-2 COVID-19 PFIZER VACCINE Unknown Completed [facility] Influenza Virus Vaccine,quad Im,preserve Free 65+ (FLUAD) Unknown Completed [facility] Hep B, Adol or Pedi Dosage Unknown Completed [facility] Influenza Virus Vaccine Unknown Completed [facility] Pneumococcal Polysaccharide, PPSV23 (PNEUMOVAX) Unknown Completed [facility] H1n1 Vaccine Unknown Completed [facility] Influenza Virus Vaccine (3+ yrs) Unknown Completed [facility] Influenza Virus Vaccine Quad ID 18-64 YRS Unknown Completed [facility] Influenza Virus Vaccine Quad IM Multi-dose 6+ MO Unknown Completed [facility] TDAP Unknown Completed [facility] Influenza Virus Vaccine Quad IM 3+ YRS Unknown Completed [facility] Pneumococcal 13 Conjugate, PCV13 (Prevnar 13) Unknown Completed [facility] SARS-COV-2 COVID-19 PFIZER VACCINE Unknown Completed [facility] Influenza Virus Vaccine,quad Im,preserve Free 65+ (FLUAD) Unknown Completed [facility] Hep B, Adol or Pedi Dosage Unknown Completed [facility] Influenza Virus Vaccine Unknown Completed [facility] Pneumococcal Polysaccharide, PPSV23 (PNEUMOVAX) Unknown Completed [facility] H1n1 Vaccine Unknown Completed [facility] Influenza Virus Vaccine (3+ yrs) Unknown Completed [facility] Influenza Virus Vaccine Quad ID 18-64 YRS Unknown Completed [facility] Influenza Virus Vaccine Quad IM Multi-dose 6+ MO Unknown Completed [facility] TDAP Unknown Completed [facility] Influenza Virus Vaccine Quad IM 3+ YRS Unknown Completed [facility] Pneumococcal 13 Conjugate, PCV13 (Prevnar 13) Unknown Completed [facility] SARS-COV-2 COVID-19 PFIZER VACCINE Unknown Completed [facility] Influenza Virus Vaccine,quad Im,preserve Free 65+ (FLUAD) Unknown Completed [facility] H1n1 Vaccine Unknown Completed [facility] Influenza Virus Vaccine (3+ yrs) Unknown Completed [facility] Influenza Virus Vaccine Quad IM Multi-dose 6+ MO Unknown Completed [facility] TDAP Unknown Completed [facility] Pneumococcal 13 Conjugate, PCV13 (Prevnar 13) Unknown Completed [facility] Hep B, Adol or Pedi Dosage Unknown Completed [facility] Influenza Virus Vaccine Unknown Completed [facility] Pneumococcal Polysaccharide, PPSV23 (PNEUMOVAX) Unknown Completed [facility] Influenza Virus Vaccine Quad ID 18-64 YRS Unknown Completed [facility] Influenza Virus Vaccine Quad IM 3+ YRS Unknown Completed [facility] SARS-COV-2 COVID-19 PFIZER VACCINE Unknown Completed [facility] Influenza Virus Vaccine,quad Im,preserve Free 65+ (FLUAD) Unknown Completed [facility] Hep B, Adol or Pedi Dosage Unknown Completed [facility] Influenza Virus Vaccine Unknown Completed [facility] Pneumococcal Polysaccharide, PPSV23 (PNEUMOVAX) Unknown Completed [facility] H1n1 Vaccine Unknown Completed [facility] Influenza Virus Vaccine (3+ yrs) Unknown Completed [facility] Influenza Virus Vaccine Quad ID 18-64 YRS Unknown Completed [facility] Influenza Virus Vaccine Quad IM Multi-dose 6+ MO Unknown Completed [facility] TDAP Unknown Completed [facility] Influenza Virus Vaccine Quad IM 3+ YRS Unknown Completed [facility] Pneumococcal 13 Conjugate, PCV13 (Prevnar 13) Unknown Completed [facility] SARS-COV-2 COVID-19 PFIZER VACCINE Unknown Completed [facility] Influenza Virus Vaccine,quad Im,preserve Free 65+ (FLUAD) Unknown Completed [facility] Hep B, Adol or Pedi Dosage Unknown Completed [facility] Influenza Virus Vaccine Unknown Completed [facility] Pneumococcal Polysaccharide, PPSV23 (PNEUMOVAX) Unknown Completed [facility] H1n1 Vaccine Unknown Completed [facility] Influenza Virus Vaccine (3+ yrs) Unknown Completed [facility] Influenza Virus Vaccine Quad ID 18-64 YRS Unknown Completed [facility] Influenza Virus Vaccine Quad IM Multi-dose 6+ MO Unknown Completed [facility] TDAP Unknown Completed [facility] Influenza Virus Vaccine Quad IM 3+ YRS Unknown Completed [facility] Pneumococcal 13 Conjugate, PCV13 (Prevnar 13) Unknown Completed [facility] SARS-COV-2 COVID-19 PFIZER VACCINE Unknown Completed [facility] Influenza Virus Vaccine,quad Im,preserve Free 65+ (FLUAD) Unknown Completed [facility] Hep B, Adol or Pedi Dosage Unknown Completed [facility] Influenza Virus Vaccine Unknown Completed [facility] Pneumococcal Polysaccharide, PPSV23 (PNEUMOVAX) Unknown Completed [facility] H1n1 Vaccine Unknown Completed [facility] Influenza Virus Vaccine (3+ yrs) Unknown Completed [facility] Influenza Virus Vaccine Quad ID 18-64 YRS Unknown Completed [facility] Influenza Virus Vaccine Quad IM Multi-dose 6+ MO Unknown Completed [facility] TDAP Unknown Completed [facility] Influenza Virus Vaccine Quad IM 3+ YRS Unknown Completed [facility] Pneumococcal 13 Conjugate, PCV13 (Prevnar 13) Unknown Completed [facility] SARS-COV-2 COVID-19 PFIZER VACCINE Unknown Completed [facility] Influenza Virus Vaccine,quad Im,preserve Free 65+ (FLUAD) Unknown Completed [facility] Hep B, Adol or Pedi Dosage Unknown Completed [facility] Influenza Virus Vaccine Unknown Completed [facility] Pneumococcal Polysaccharide, PPSV23 (PNEUMOVAX) Unknown Completed [facility] H1n1 Vaccine Unknown Com[facility] (3+ yrs) Unknown Completed [facility] Influenza Virus Vaccine Quad ID 18-64 YRS Unknown Completed [facility] Influenza Virus Vaccine Quad IM Multi-dose 6+ MO Unknown Completed [facility] TDAP Unknown Completed [facility] Influenza Virus Vaccine Quad IM 3+ YRS Unknown Completed [facility] Pneumococcal 13 Conjugate, PCV13 (Prevnar 13) Unknown Completed [facility] SARS-COV-2 COVID-19 PFIZER VACCINE Unknown Completed [facility] Influenza Virus Vaccine,quad Im,preserve Free 65+ (FLUAD) Unknown Completed [facility] H1n1 Vaccine Unknown Completed [facility] Influenza Virus Vaccine (3+ yrs) Unknown Completed [facility] Influenza Virus Vaccine Quad IM Multi-dose 6+ MO Unknown Completed [facility] TDAP Unknown Completed [facility] Pneumococcal 13 Conjugate, PCV13 (Prevnar 13) Unknown Completed [facility] Hep B, Adol or Pedi Dosage Unknown Completed [facility] Influenza Virus Vaccine Unknown Completed [facility] Pneumococcal Polysaccharide, PPSV23 (PNEUMOVAX) Unknown Completed [facility] H1n1 Vaccine Unknown Completed [facility] Influenza Virus Vaccine (3+ yrs) Unknown Completed [facility] Influenza Virus Vaccine Quad ID 18-64 YRS Unknown Completed [facility] Influenza Virus Vaccine Quad IM Multi-dose 6+ MO Unknown Completed [facility] TDAP Unknown Completed [facility] Influenza Virus Vaccine Quad IM 3+ YRS Unknown Completed [facility] Pneumococcal 13 Conjugate, PCV13 (Prevnar 13) Unknown Completed [facility] SARS-COV-2 COVID-19 PFIZER VACCINE Unknown Completed [facility] Influenza Virus Vaccine,quad Im,preserve Free 65+ (FLUAD) Unknown Completed [facility] Hep B, Adol or Pedi Dosage Unknown Completed [facility] Influenza Virus Vaccine Unknown Completed [facility] Pneumococcal Polysaccharide, PPSV23 (PNEUMOVAX) Unknown Completed [facility] Influenza Virus Vaccine Quad ID 18-64 YRS Unknown Completed [facility] Influenza Virus Vaccine Quad IM 3+ YRS Unknown Completed [facility] SARS-COV-2 COVID-19 PFIZER VACCINE Unknown Completed [facility] Influenza Virus Vaccine,quad Im,preserve Free 65+ (FLUAD) Unknown Completed [facility] Hep B, Adol or Pedi Dosage Unknown Completed [facility] Influenza Virus Vaccine Unknown Completed [facility] Pneumococcal Polysaccharide, PPSV23 (PNEUMOVAX) Unknown Completed [facility] H1n1 Vaccine Unknown Completed [facility] Influenza Virus Vaccine (3+ yrs) Unknown Completed [facility] Influenza Virus Vaccine Quad ID 18-64 YRS Unknown Completed [facility] Influenza Virus Vaccine Quad IM Multi-dose 6+ MO Unknown Completed [facility] TDAP Unknown Completed [facility] Influenza Virus Vaccine Quad IM 3+ YRS Unknown Completed [facility] Pneumococcal 13 Conjugate, PCV13 (Prevnar 13) Unknown Completed [facility] SARS-COV-2 COVID-19 PFIZER VACCINE Unknown Completed [facility] Influenza Virus Vaccine,quad Im,preserve Free 65+ (FLUAD) Unknown Completed [facility] Hep B, Adol or Pedi Dosage Unknown Completed [facility] Influenza Virus Vaccine Unknown Completed [facility] Pneumococcal Polysaccharide, PPSV23 (PNEUMOVAX) Unknown Completed [facility] H1n1 Vaccine Unknown Completed [facility] Influenza Virus Vaccine (3+ yrs) Unknown Completed [facility] Influenza Virus Vaccine Quad ID 18-64 YRS Unknown Completed [facility] Influenza Virus Vaccine Quad IM Multi-dose 6+ MO Unknown Completed [facility] TDAP Unknown Completed [facility] Influenza Virus Vaccine Quad IM 3+ YRS Unknown Completed [facility] Pneumococcal 13 Conjugate, PCV13 (Prevnar 13) Unknown Completed [facility] SARS-COV-2 COVID-19 PFIZER VACCINE Unknown Completed [facility] Influenza Virus Vaccine,quad Im,preserve Free 65+ (FLUAD) Unknown Completed [facility] H1n1 Vaccine Unknown Completed [facility] Influenza Virus Vaccine (3+ yrs) Unknown Completed [facility] Influenza Virus Vaccine Quad IM Multi-dose 6+ MO Unknown Completed [facility] TDAP Unknown Completed [facility] Pneumococcal 13 Conjugate, PCV13 (Prevnar 13) Unknown Completed [facility] Hep B, Adol or Pedi Dosage Unknown Completed [facility] Influenza Virus Vaccine Unknown Completed [facility] Pneumococcal Polysaccharide, PPSV23 (PNEUMOVAX) Unknown [facility] Influenza Virus Vaccine Quad ID 18-64 YRS Unknown Completed [facility] Influenza Virus Vaccine Quad IM 3+ YRS Unknown Completed [facility] SARS-COV-2 COVID-19 PFIZER VACCINE Unknown Completed [facility] Influenza Virus Vaccine,quad Im,preserve Free 65+ (FLUAD) Unknown Completed [facility] H1n1 Vaccine Unknown Completed [facility] Influenza Virus Vaccine (3+ yrs) Unknown Completed [facility] Influenza Virus Vaccine Quad IM Multi-dose 6+ MO Unknown Completed [facility] TDAP Unknown Completed [facility] Pneumococcal 13 Conjugate, PCV13 (Prevnar 13) Unknown Completed [facility] Hep B, Adol or Pedi Dosage Unknown Completed [facility] Influenza Virus Vaccine Unknown Completed [facility] Pneumococcal Polysaccharide, PPSV23 (PNEUMOVAX) Unknown Completed [facility] Influenza Virus Vaccine Quad ID 18-64 YRS Unknown Completed [facility] Influenza Virus Vaccine Quad IM 3+ YRS Unknown Completed [facility] SARS-COV-2 COVID-19 PFIZER VACCINE Unknown Completed [facility] Influenza Virus Vaccine,quad Im,preserve Free 65+ (FLUAD) Unknown Completed [facility] Hep B, Adol or Pedi Dosage Unknown Completed [facility] Influenza Virus Vaccine Unknown Completed [facility] Pneumococcal Polysaccharide, PPSV23 (PNEUMOVAX) Unknown Completed [facility] H1n1 Vaccine Unknown Completed [facility] Influenza Virus Vaccine (3+ yrs) Unknown Completed [facility] Influenza Virus Vaccine Quad ID 18-64 YRS Unknown Completed [facility] Influenza Virus Vaccine Quad IM Multi-dose 6+ MO Unknown Completed [facility] TDAP Unknown Completed [facility] Influenza Virus Vaccine Quad IM 3+ YRS Unknown Completed [facility] Pneumococcal 13 Conjugate, PCV13 (Prevnar 13) Unknown Completed [facility] SARS-COV-2 COVID-19 PFIZER VACCINE Unknown Completed [facility] Influenza Virus Vaccine,quad Im,preserve Free 65+ (FLUAD) Unknown Completed [facility] Hep B, Adol or Pedi Dosage Unknown Completed [facility] Influenza Virus Vaccine Unknown Completed [facility] Pneumococcal Polysaccharide, PPSV23 (PNEUMOVAX) Unknown Completed [facility] H1n1 Vaccine Unknown Completed [facility] Influenza Virus Vaccine (3+ yrs) Unknown Completed [facility] Influenza Virus Vaccine Quad ID 18-64 YRS Unknown Completed [facility] Influenza Virus Vaccine Quad IM Multi-dose 6+ MO Unknown Completed [facility] TDAP Unknown Completed [facility] Influenza Virus Vaccine Quad IM 3+ YRS Unknown Completed [facility] Pneumococcal 13 Conjugate, PCV13 (Prevnar 13) Unknown Completed [facility] SARS-COV-2 COVID-19 PFIZER VACCINE Unknown Completed [facility] Influenza Virus Vaccine,quad Im,preserve Free 65+ (FLUAD) Unknown Completed [facility] Hep B, Adol or Pedi Dosage Unknown Completed [facility] Influenza Virus Vaccine Unknown Completed [facility] Pneumococcal Polysaccharide, PPSV23 (PNEUMOVAX) Unknown Completed [facility] H1n1 Vaccine Unknown Completed [facility] Influenza Virus Vaccine (3+ yrs) Unknown Completed [facility] Influenza Virus Vaccine Quad ID 18-64 YRS Unknown Completed [facility] Influenza Virus Vaccine Quad IM Multi-dose 6+ MO Unknown Completed [facility] TDAP Unknown Completed [facility] Influenza Virus Vaccine Quad IM 3+ YRS Unknown Completed [facility] Pneumococcal 13 Conjugate, PCV13 (Prevnar 13) Unknown Completed [facility] SARS-COV-2 COVID-19 PFIZER VACCINE Unknown Completed [facility] Influenza Virus Vaccine,quad Im,preserve Free 65+ (FLUAD) Unknown Completed [facility] H1n1 Vaccine Unknown Completed [facility] Influenza Virus Vaccine (3+ yrs) Unknown Completed [facility] [facility] Influenza Virus Vaccine Quad IM Multi-dose 6+ MO Unknown Completed [facility] TDAP Unknown Completed [facility] Pneumococcal 13 Conjugate, PCV13 (Prevnar 13) Unknown Completed [facility] Hep B, Adol or Pedi Dosage Unknown Completed [facility] Influenza Virus Vaccine Unknown Completed [facility] Pneumococcal Polysaccharide, PPSV23 (PNEUMOVAX) Unknown Completed [facility] Influenza Virus Vaccine Quad ID 18-64 YRS Unknown Completed [facility] Influenza Virus Vaccine Quad IM 3+ YRS Unknown Completed [facility] SARS-COV-2 COVID-19 PFIZER VACCINE Unknown Completed [facility] Influenza Virus Vaccine,quad Im,preserve Free 65+ (FLUAD) Unknown Completed [facility] Hep B, Adol or Pedi Dosage Unknown Completed [facility] Influenza Virus Vaccine Unknown Completed [facility] Pneumococcal Polysaccharide, PPSV23 (PNEUMOVAX) Unknown Completed [facility] H1n1 Vaccine Unknown Completed [facility] Influenza Virus Vaccine (3+ yrs) Unknown Completed [facility] Influenza Virus Vaccine Quad ID 18-64 YRS Unknown Completed [facility] Influenza Virus Vaccine Quad IM Multi-dose 6+ MO Unknown Completed [facility] TDAP Unknown Completed [facility] Influenza Virus Vaccine Quad IM 3+ YRS Unknown Completed [facility] Pneumococcal 13 Conjugate, PCV13 (Prevnar 13) Unknown Completed [facility] SARS-COV-2 COVID-19 PFIZER VACCINE Unknown Completed [facility] Influenza Virus Vaccine,quad Im,preserve Free 65+ (FLUAD) Unknown Completed [facility] Hep B, Adol or Pedi Dosage Unknown Completed [facility] Influenza Virus Vaccine Unknown Completed [facility] Pneumococcal Polysaccharide, PPSV23 (PNEUMOVAX) Unknown Completed [facility] H1n1 Vaccine Unknown Completed [facility] Influenza Virus Vaccine (3+ yrs) Unknown Completed [facility] Influenza Virus Vaccine Quad ID 18-64 YRS Unknown Completed [facility] Influenza Virus Vaccine Quad IM Multi-dose 6+ MO Unknown Completed [facility] TDAP Unknown Completed [facility] Influenza Virus Vaccine Quad IM 3+ YRS Unknown Completed [facility] Pneumococcal 13 Conjugate, PCV13 (Prevnar 13) Unknown Completed [facility] SARS-COV-2 COVID-19 PFIZER VACCINE Unknown Completed [facility] Influenza Virus Vaccine,quad Im,preserve Free 65+ (FLUAD) Unknown Completed [facility] Hep B, Adol or Pedi Dosage Unknown Completed [facility] Influenza Virus Vaccine Unknown Completed [facility] Pneumococcal Polysaccharide, PPSV23 (PNEUMOVAX) Unknown Completed [facility] H1n1 Vaccine Unknown Completed [facility] Influenza Virus Vaccine (3+ yrs) Unknown Completed [facility] Influenza Virus Vaccine Quad ID 18-64 YRS Unknown Completed [facility] Influenza Virus Vaccine Quad IM Multi-dose 6+ MO Unknown Completed [facility] TDAP Unknown Completed [facility] Influenza Virus Vaccine Quad IM 3+ YRS Unknown Completed [facility] Pneumococcal 13 Conjugate, PCV13 (Prevnar 13) Unknown Completed [facility] SARS-COV-2 COVID-19 PFIZER VACCINE Unknown Completed [facility] Influenza Virus Vaccine,quad Im,preserve Free 65+ (FLUAD) Unknown Completed [facility] Hep B, Adol or Pedi Dosage Unknown Completed [facility] Influenza Virus Vaccine Unknown Completed [facility] Pneumococcal Polysaccharide, PPSV23 (PNEUMOVAX) Unknown Completed [facility] H1n1 Vaccine Unknown Completed [facility] Influenza Virus Vaccine (3+ yrs) Unknown Completed [facility] Influenza Virus Vaccine Quad ID 18-64 YRS Unknown Completed [facility] Influenza Virus Vaccine Quad IM Multi-dose 6+ MO Unknown Completed [facility] TDAP Unknown Completed [facility] Influenza Virus Vaccine Quad IM 3+ YRS Unknown Completed [facility] Pneumococcal 13 Conjugate, PCV13 (Prevnar 13) Unknown Completed [facility] SARS-COV-2 COVID-19 PFIZER VACCINE Unknown Completed [facility] Influenza Virus Vaccine,quad Im,preserve Free 65+ (FLUAD) Unknown Completed [facility] Hep B, Adol or Pedi Dosage Unknown Completed [facility] Influenza Virus Vaccine Unknown Completed [facility] Pneumococcal Polysaccharide, PPSV23 (PNEUMOVAX) Unknown Completed [facility] H1n1 Vaccine Unknown Completed [facility] Influenza Virus Vaccine (3+ yrs) Unknown Completed [facility] Influenza Virus Vaccine Quad ID 18-64 YRS Unknown Completed [facility] Influenza Virus Vaccine Quad IM Multi-dose 6+ MO Unknown Completed [facility] TDAP Unknown Completed [facility] Influenza Virus Vaccine Quad IM 3+ YRS Unknown Completed [facility] Pneumococcal 13 Conjugate, PCV13 (Prevnar 13) Unknown Completed [facility] SARS-COV-2 COVID-19 PFIZER VACCINE Unknown Completed [facility] Influenza Virus Vaccine,quad Im,preserve Free 65+ (FLUAD) Unknown Completed [facility] Hep B, Adol or Pedi Dosage Unknown Completed [facility] Influenza Virus Vaccine Unknown Completed [facility] Pneumococcal Polysaccharide, PPSV23 (PNEUMOVAX) Unknown Completed [facility] H1n1 Vaccine Unknown Completed [facility] Influenza Virus Vaccine (3+ yrs) Unknown Completed [facility] Influenza Virus Vaccine Quad ID 18-64 YRS Unknown Completed [facility] Influenza Virus Vaccine Quad IM Multi-dose 6+ MO Unknown Completed [facility] TDAP Unknown Completed [facility] Influenza Virus Vaccine Quad .5 mL IM 6+ MO (FLUZONE/FLULAVAL/F LUARIX) Unknown Completed [facility] Pneumococcal 13 Conjugate, PCV13 (Prevnar 13) Unknown Completed [facility] SARS-COV-2 COVID-19 PFIZER VACCINE Unknown Completed [facility] Influenza Virus Vaccine,quad Im,preserve Free 65+ (FLUAD) Unknown Completed [facility] Hep B, Adol or Pedi Dosage Unknown Completed [facility] Influenza Virus Vaccine Unknown Completed [facility] Pneumococcal Polysaccharide, PPSV23 (PNEUMOVAX) Unknown Completed [facility] H1n1 Vaccine Unknown Completed [facility] Influenza Virus Vaccine (3+ yrs) Unknown Completed [facility] Influenza Virus Vaccine Quad ID 18-64 YRS Unknown Completed [facility] Influenza Virus Vaccine Quad IM Multi-dose 6+ MO Unknown Completed [facility] TDAP Unknown Completed [facility] Influenza Virus Vaccine Quad IM 3+ YRS Unknown Completed [facility] Pneumococcal 13 Conjugate, PCV13 (Prevnar 13) Unknown Completed [facility] SARS-COV-2 COVID-19 PFIZER VACCINE Unknown Completed [facility] Influenza Virus Vaccine,quad Im,preserve Free 65+ (FLUAD) Unknown Completed [facility] Hep B, Adol or Pedi Dosage Unknown Completed [facility] Influenza Virus Vaccine Unknown Completed [facility] Pneumococcal Polysaccharide, PPSV23 (PNEUMOVAX) Unknown Completed [facility] H1n1 Vaccine Unknown Completed [facility] Influenza Virus Vaccine (3+ yrs) Unknown Completed [facility] Influenza Virus Vaccine Quad ID 18-64 YRS Unknown Completed [facility] Influenza Virus Vaccine Quad IM Multi-dose 6+ MO Unknown Completed [facility] TDAP Unknown Completed [facility] Influenza Virus Vaccine Quad IM 3+ YRS Unknown Completed [facility] Pneumococcal 13 Conjugate, PCV13 (Prevnar 13) Unknown Completed [facility] SARS-COV-2 COVID-19 PFIZER VACCINE Unknown Completed [facility] Influenza Virus Vaccine,quad Im,preserve Free 65+ (FLUAD) Unknown Completed [facility] Hep B, Adol or Pedi Dosage Unknown Completed [facility] Influenza Virus Vaccine Unknown Completed [facility] Pneumococcal Polysaccharide, PPSV23 (PNEUMOVAX) Unknown Completed [facility] H1n1 Vaccine Unknown Completed [facility] Influenza Virus Vaccine (3+ yrs) Unknown Completed [facility] Influenza Virus Vaccine Quad ID 18-64 YRS Unknown Completed [facility] Influenza Virus Vaccine Quad IM Multi-dose 6+ MO Unknown Completed [facility] TDAP Unknown Completed [facility] Influenza Virus Vaccine Quad IM 3+ YRS Unknown Completed [facility] Pneumococcal 13 Conjugate, PCV13 (Prevnar 13) Unknown Completed [facility] SARS-COV-2 COVID-19 PFIZER VACCINE Unknown Completed [facility] Influenza Virus Vaccine,quad Im,preserve Free 65+ (FLUAD) Unknown Completed [facility] Hep B, Adol or Pedi Dosage Unknown Completed [facility] Influenza Virus Vaccine Unknown Completed [facility] Pneumococcal Polysaccharide, PPSV23 (PNEUMOVAX) Unknown Completed [facility] H1n1 Vaccine Unknown Completed [facility] Influenza Virus Vaccine (3+ yrs) Unknown Completed [facility] Influenza Virus Vaccine Quad ID 18-64 YRS Unknown Completed [facility] Influenza Virus Vaccine Quad IM Multi-dose 6+ MO Unknown Completed [facility] TDAP Unknown Completed [facility] Influenza Virus Vaccine Quad IM 3+ YRS Unknown Completed [facility] Pneumococcal 13 Conjugate, PCV13 (Prevnar 13) Unknown Completed [facility] SARS-COV-2 COVID-19 PFIZER VACCINE Unknown Completed [facility] Influenza Virus Vaccine,quad Im,preserve Free 65+ (FLUAD) Unknown Completed [facility] Hep B, Adol or Pedi Dosage Unknown Completed [facility] Influenza Virus Vaccine Unknown Completed [facility] Pneumococcal Polysaccharide, PPSV23 (PNEUMOVAX) Unknown Completed [facility] H1n1 Vaccine Unknown Completed [facility] Influenza Virus Vaccine (3+ yrs) Unknown Completed [facility] Influenza Virus Vaccine Quad ID 18-64 YRS Unknown Completed [facility] Influenza Virus Vaccine Quad IM Multi-dose 6+ MO Unknown Completed [facility] TDAP Unknown Completed [facility] Influenza Virus Vaccine Quad IM 3+ YRS Unknown Completed [facility] Pneumococcal 13 Conjugate, PCV13 (Prevnar 13) Unknown Completed [facility] SARS-COV-2 COVID-19 PFIZER VACCINE Unknown Completed [facility] Influenza Virus Vaccine,quad Im,preserve Free 65+ (FLUAD) Unknown Completed [facility] Hep B, Adol or Pedi Dosage Unknown Completed [facility] Influenza Virus Vaccine Unknown Completed [facility] Pneumococcal Polysaccharide, PPSV23 (PNEUMOVAX) Unknown Completed [facility] H1n1 Vaccine Unknown Completed [facility] Influenza Virus Vaccine (3+ yrs) Unknown Completed [facility] Influenza Virus Vaccine Quad ID 18-64 YRS Unknown Completed [facility] Influenza Virus Vaccine Quad IM Multi-dose 6+ MO Unknown Completed [facility] TDAP Unknown Completed [facility] Influenza Virus Vaccine Quad IM 3+ YRS Unknown Completed [facility] Pneumococcal 13 Conjugate, PCV13 (Prevnar 13) Unknown Completed [facility] SARS-COV-2 COVID-19 PFIZER VACCINE Unknown Completed [facility] Influenza Virus Vaccine,quad Im,preserve Free 65+ (FLUAD) Unknown Completed [facility] Hep B, Adol or Pedi Dosage Unknown Completed [facility] Influenza Virus Vaccine Unknown Completed [facility] Pneumococcal Polysaccharide, PPSV23 (PNEUMOVAX) Unknown Completed [facility] H1n1 Vaccine Unknown Completed [facility] Influenza Virus Vaccine (3+ yrs) Unknown Completed [facility] Influenza Virus Vaccine Quad ID 18-64 YRS Unknown Completed [facility] Influenza Virus Vaccine Quad IM Multi-dose 6+ MO Unknown Completed [facility] TDAP Unknown Completed [facility] Influenza Virus Vaccine Quad IM 3+ YRS Unknown Completed [facility] Pneumococcal 13 Conjugate, PCV13 (Prevnar 13) Unknown Completed [facility] SARS-COV-2 COVID-19 PFIZER VACCINE Unknown Completed [facility] Influenza Virus Vaccine,quad Im,preserve Free 65+ (FLUAD) Unknown Completed [facility] Hep B, Adol or Pedi Dosage Unknown Completed [facility] Influenza Virus Vaccine Unknown Completed [facility] Pneumococcal Polysaccharide, PPSV23 (PNEUMOVAX) Unknown Completed [facility] H1n1 Vaccine Unknown Completed [facility] Influenza Virus Vaccine (3+ yrs) Unknown Completed [facility] Influenza Virus Vaccine Quad ID 18-64 YRS Unknown Completed [facility] Influenza Virus Vaccine Quad IM Multi-dose 6+ MO Unknown Completed [facility] TDAP Unknown Completed [facility] Influenza Virus Vaccine Quad IM 3+ YRS Unknown Completed [facility] Pneumococcal 13 Conjugate, PCV13 (Prevnar 13) Unknown Completed [facility] SARS-COV-2 COVID-19 PFIZER VACCINE Unknown Completed [facility] Influenza Virus Vaccine,quad Im,preserve Free 65+ (FLUAD) Unknown Completed [facility] Hep B, Adol or Pedi Dosage Unknown Completed [facility] Influenza Virus Vaccine Unknown Completed [facility] Pneumococcal Polysaccharide, PPSV23 (PNEUMOVAX) Unknown Completed [facility] H1n1 Vaccine Unknown Completed [facility] Influenza Virus Vaccine (3+ yrs) Unknown Completed [facility] Influenza Virus Vaccine Quad ID 18-64 YRS Unknown Completed [facility] Influenza Virus Vaccine Quad IM Multi-dose 6+ MO Unknown Completed [facility] TDAP Unknown Completed [facility] Influenza Virus Vaccine Quad IM 3+ YRS Unknown Completed [facility] Pneumococcal 13 Conjugate, PCV13 (Prevnar 13) Unknown Completed [facility] SARS-COV-2 COVID-19 PFIZER VACCINE Unknown Completed [facility] Influenza Virus Vaccine,quad Im,preserve Free 65+ (FLUAD) Unknown Completed [facility] Hep B, Adol or Pedi Dosage Unknown Completed [facility] Influenza Virus Vaccine Unknown Completed [facility] Pneumococcal Polysaccharide, PPSV23 (PNEUMOVAX) Unknown Completed [facility] H1n1 Vaccine Unknown Completed [facility] Influenza Virus Vaccine (3+ yrs) Unknown Completed [facility] Influenza Virus Vaccine Quad ID 18-64 YRS Unknown Completed [facility] Influenza Virus Vaccine Quad IM Multi-dose 6+ MO Unknown Completed [facility] TDAP Unknown Completed [facility] Influenza Virus Vaccine Quad IM 3+ YRS Unknown Completed [facility] Pneumococcal 13 Conjugate, PCV13 (Prevnar 13) Unknown Completed [facility] SARS-COV-2 COVID-19 PFIZER VACCINE Unknown Completed [facility] Influenza Virus Vaccine,quad Im,preserve Free 65+ (FLUAD) Unknown Completed [facility] Hep B, Adol or Pedi Dosage Unknown Completed [facility] Influenza Virus Vaccine Unknown Completed [facility] Pneumococcal Polysaccharide, PPSV23 (PNEUMOVAX) Unknown Completed [facility] H1n1 Vaccine Unknown Completed [facility] Influenza Virus Vaccine (3+ yrs) Unknown Completed [facility] Influenza Virus Vaccine Quad ID 18-64 YRS Unknown Completed [facility] Influenza Virus Vaccine Quad IM Multi-dose 6+ MO Unknown Completed [facility] TDAP Unknown Completed [facility] Influenza Virus Vaccine Quad IM 3+ YRS Unknown Completed [facility] Pneumococcal 13 Conjugate, PCV13 (Prevnar 13) Unknown Completed [facility] SARS-COV-2 COVID-19 PFIZER VACCINE Unknown Completed [facility] Influenza Virus Vaccine,quad Im,preserve Free 65+ (FLUAD) Unknown Completed [facility] Hep B, Adol or Pedi Dosage Unknown Completed [facility] Influenza Virus Vaccine Unknown Completed [facility] Pneumococcal Polysaccharide, PPSV23 (PNEUMOVAX) Unknown Completed [facility] H1n1 Vaccine Unknown Completed [facility] Influenza Virus Vaccine (3+ yrs) Unknown Completed [facility] Influenza Virus Vaccine Quad ID 18-64 YRS Unknown Completed [facility] Influenza Virus Vaccine Quad IM Multi-dose 6+ MO Unknown Completed [facility] TDAP Unknown Completed [facility] Influenza Virus Vaccine Quad IM 3+ YRS Unknown Completed [facility] Pneumococcal 13 Conjugate, PCV13 (Prevnar 13) Unknown Completed [facility] SARS-COV-2 COVID-19 PFIZER VACCINE Unknown Completed [facility] Influenza Virus Vaccine,quad Im,preserve Free 65+ (FLUAD) Unknown Completed [facility] Hep B, Adol or Pedi Dosage Unknown Completed [facility] Influenza Virus Vaccine Unknown Completed [facility] Pneumococcal Polysaccharide, PPSV23 (PNEUMOVAX) Unknown Completed [facility] H1n1 Vaccine Unknown Completed [facility] Influenza Virus Vaccine (3+ yrs) Unknown Completed [facility] Influenza Virus Vaccine Quad ID 18-64 YRS Unknown Completed [facility] Influenza Virus Vaccine Quad IM Multi-dose 6+ MO Unknown Completed [facility] TDAP Unknown Completed [facility] Influenza Virus Vaccine Quad IM 3+ YRS Unknown Completed [facility] Pneumococcal 13 Conjugate, PCV13 (Prevnar 13) Unknown Completed [facility] SARS-COV-2 COVID-19 PFIZER VACCINE Unknown Completed [facility] Influenza Virus Vaccine,quad Im,preserve Free 65+ (FLUAD) Unknown Completed [facility] Hep B, Adol or Pedi Dosage Unknown Completed [facility] Influenza Virus Vaccine Unknown Completed [facility] Pneumococcal Polysaccharide, PPSV23 (PNEUMOVAX) Unknown Completed [facility] H1n1 Vaccine Unknown Completed [facility] Influenza Virus Vaccine (3+ yrs) Unknown Completed [facility] Influenza Virus Vaccine Quad ID 18-64 YRS Unknown Completed [facility] Influenza Virus Vaccine Quad IM Multi-dose 6+ MO Unknown Completed [facility] TDAP Unknown Completed [facility] Influenza Virus Vaccine Quad IM 3+ YRS Unknown Completed [facility] Pneumococcal 13 Conjugate, PCV13 (Prevnar 13) Unknown Completed [facility] SARS-COV-2 COVID-19 PFIZER VACCINE Unknown Completed [facility] Influenza Virus Vaccine,quad Im,preserve Free 65+ (FLUAD) Unknown Completed [facility] Hep B, Adol or Pedi Dosage Unknown Completed [facility] Influenza Virus Vaccine Unknown Completed [facility] Pneumococcal Polysaccharide, PPSV23 (PNEUMOVAX) Unknown Completed [facility] H1n1 Vaccine Unknown Completed [facility] Influenza Virus Vaccine (3+ yrs) Unknown Completed [facility] Influenza Virus Vaccine Quad ID 18-64 YRS Unknown Completed [facility] Influenza Virus Vaccine Quad IM Multi-dose 6+ MO Unknown Completed [facility] TDAP Unknown Completed [facility] Influenza Virus Vaccine Quad IM 3+ YRS Unknown Completed [facility] Pneumococcal 13 Conjugate, PCV13 (Prevnar 13) Unknown Completed [facility] SARS-COV-2 COVID-19 PFIZER VACCINE Unknown Completed [facility] Influenza Virus Vaccine,quad Im,preserve Free 65+ (FLUAD) Unknown Completed [facility] Hep B, Adol or Pedi Dosage Unknown Completed [facility] Influenza Virus Vaccine Unknown Completed [facility] Pneumococcal Polysaccharide, PPSV23 (PNEUMOVAX) Unknown Completed [facility] H1n1 Vaccine Unknown Completed [facility] Influenza Virus Vaccine (3+ yrs) Unknown Completed [facility] Influenza Virus Vaccine Quad ID 18-64 YRS Unknown Completed [facility] Influenza Virus Vaccine Quad IM Multi-dose 6+ MO Unknown Completed [facility] TDAP Unknown Completed [facility] Influenza Virus Vaccine Quad IM 3+ YRS Unknown Completed [facility] Pneumococcal 13 Conjugate, PCV13 (Prevnar 13) Unknown Completed [facility] SARS-COV-2 COVID-19 PFIZER VACCINE Unknown Completed [facility] Influenza Virus Vaccine,quad Im,preserve Free 65+ (FLUAD) Unknown Completed [facility] Hep B, Adol or Pedi Dosage Unknown Completed [facility] Influenza Virus Vaccine Unknown Completed [facility] Pneumococcal Polysaccharide, PPSV23 (PNEUMOVAX) Unknown Completed [facility] H1n1 Vaccine Unknown Completed [facility] Influenza Virus Vaccine (3+ yrs) Unknown Completed [facility] Influenza Virus Vaccine Quad ID 18-64 YRS Unknown Completed [facility] Influenza Virus Vaccine Quad IM Multi-dose 6+ MO Unknown Completed [facility] TDAP Unknown Completed [facility] Influenza Virus Vaccine Quad IM 3+ YRS Unknown Completed [facility] Pneumococcal 13 Conjugate, PCV13 (Prevnar 13) Unknown Completed [facility] SARS-COV-2 COVID-19 PFIZER VACCINE Unknown Completed [facility] Influenza Virus Vaccine,quad Im,preserve Free 65+ (FLUAD) Unknown Completed [facility] Hep B, Adol or Pedi Dosage Unknown Completed [facility] Influenza Virus Vaccine Unknown Completed [facility] Pneumococcal Polysaccharide, PPSV23 (PNEUMOVAX) Unknown Completed [facility] H1n1 Vaccine Unknown Completed [facility] Influenza Virus Vaccine (3+ yrs) Unknown Completed [facility] Influenza Virus Vaccine Quad ID 18-64 YRS Unknown Completed [facility] Influenza Virus Vaccine Quad IM Multi-dose 6+ MO Unknown Completed [facility] TDAP Unknown Completed [facility] Influenza Virus Vaccine Quad IM 3+ YRS Unknown Completed [facility] Pneumococcal 13 Conjugate, PCV13 (Prevnar 13) Unknown Completed [facility] SARS-COV-2 COVID-19 PFIZER VACCINE Unknown Completed [facility] Influenza Virus Vaccine,quad Im,preserve Free 65+ (FLUAD) Unknown Completed [facility] Hep B, Adol or Pedi Dosage Unknown Completed [facility] Influenza Virus Vaccine Unknown Completed [facility] Pneumococcal Polysaccharide, PPSV23 (PNEUMOVAX) Unknown Completed [facility] H1n1 Vaccine Unknown Completed [facility] Influenza Virus Vaccine (3+ yrs) Unknown Completed [facility] Influenza Virus Vaccine Quad ID 18-64 YRS Unknown Completed [facility] Influenza Virus Vaccine Quad IM Multi-dose 6+ MO Unknown Completed [facility] TDAP Unknown Completed [facility] Influenza Virus Vaccine Quad IM 3+ YRS Unknown Completed [facility] Pneumococcal 13 Conjugate, PCV13 (Prevnar 13) Unknown Completed [facility] SARS-COV-2 COVID-19 PFIZER VACCINE Unknown Completed [facility] Influenza Virus Vaccine,quad Im,preserve Free 65+ (FLUAD) Unknown Completed [facility] Hep B, Adol or Pedi Dosage Unknown Completed [facility] Influenza Virus Vaccine Unknown Completed [facility] Pneumococcal Polysaccharide, PPSV23 (PNEUMOVAX) Unknown Completed [facility] H1n1 Vaccine Unknown Completed [facility] Influenza Virus Vaccine (3+ yrs) Unknown Completed [facility] Influenza Virus Vaccine Quad ID 18-64 YRS Unknown Completed [facility] Influenza Virus Vaccine Quad IM Multi-dose 6+ MO Unknown Completed [facility] TDAP Unknown Completed [facility] Influenza Virus Vaccine Quad IM 3+ YRS Unknown Completed [facility] Pneumococcal 13 Conjugate, PCV13 (Prevnar 13) Unknown Completed [facility] SARS-COV-2 COVID-19 PFIZER VACCINE Unknown Completed [facility] Influenza Virus Vaccine,quad Im,preserve Free 65+ (FLUAD) Unknown Completed [facility] Hep B, Adol or Pedi Dosage Unknown Completed [facility] Influenza Virus Vaccine Unknown Completed [facility] Pneumococcal Polysaccharide, PPSV23 (PNEUMOVAX) Unknown Completed [facility] H1n1 Vaccine Unknown Completed [facility] Influenza Virus Vaccine (3+ yrs) Unknown Completed [facility] Influenza Virus Vaccine Quad ID 18-64 YRS Unknown Completed [facility] Influenza Virus Vaccine Quad IM Multi-dose 6+ MO Unknown Completed [facility] TDAP Unknown Completed [facility] Influenza Virus Vaccine Quad IM 3+ YRS Unknown Completed [facility] Pneumococcal 13 Conjugate, PCV13 (Prevnar 13) Unknown Completed [facility] SARS-COV-2 COVID-19 PFIZER VACCINE Unknown Completed [facility] Influenza Virus Vaccine,quad Im,preserve Free 65+ (FLUAD) Unknown Completed [facility] Hep B, Adol or Pedi Dosage Unknown Completed [facility] Influenza Virus Vaccine Unknown Completed [facility] Pneumococcal Polysaccharide, PPSV23 (PNEUMOVAX) Unknown Completed [facility] H1n1 Vaccine Unknown Completed [facility] Influenza Virus Vaccine (3+ yrs) Unknown Completed [facility] Influenza Virus Vaccine Quad ID 18-64 YRS Unknown Completed [facility] Influenza Virus Vaccine Quad IM Multi-dose 6+ MO Unknown Completed [facility] TDAP Unknown Completed [facility] Influenza Virus Vaccine Quad IM 3+ YRS Unknown Completed [facility] Pneumococcal 13 Conjugate, PCV13 (Prevnar 13) Unknown Completed [facility] SARS-COV-2 COVID-19 PFIZER VACCINE Unknown Completed [facility] Influenza Virus Vaccine,quad Im,preserve Free 65+ (FLUAD) Unknown Completed [facility] Hep B, Adol or Pedi Dosage Unknown Completed [facility] Influenza Virus Vaccine Unknown Completed [facility] Pneumococcal Polysaccharide, PPSV23 (PNEUMOVAX) Unknown Completed [facility] H1n1 Vaccine Unknown Com[facility] (3+ yrs) Unknown Completed [facility] Influenza Virus Vaccine Quad ID 18-64 YRS Unknown Completed [facility] Influenza Virus Vaccine Quad IM Multi-dose 6+ MO Unknown Completed [facility] TDAP Unknown Completed [facility] Influenza Virus Vaccine Quad IM 3+ YRS Unknown Completed [facility] Pneumococcal 13 Conjugate, PCV13 (Prevnar 13) Unknown Completed [facility] SARS-COV-2 COVID-19 PFIZER VACCINE Unknown Completed [facility] Influenza Virus Vaccine,quad Im,preserve Free 65+ (FLUAD) Unknown Completed [facility] Hep B, Adol or Pedi Dosage Unknown Completed [facility] Influenza Virus Vaccine Unknown Completed [facility] Pneumococcal Polysaccharide, PPSV23 (PNEUMOVAX) Unknown Completed [facility] H1n1 Vaccine Unknown Completed [facility] Influenza Virus Vaccine (3+ yrs) Unknown Completed [facility] Influenza Virus Vaccine Quad ID 18-64 YRS Unknown Completed [facility] Influenza Virus Vaccine Quad IM Multi-dose 6+ MO Unknown Completed [facility] TDAP Unknown Completed [facility] Influenza Virus Vaccine Quad IM 3+ YRS Unknown Completed [facility] Pneumococcal 13 Conjugate, PCV13 (Prevnar 13) Unknown Completed [facility] SARS-COV-2 COVID-19 PFIZER VACCINE Unknown Completed [facility] Influenza Virus Vaccine,quad Im,preserve Free 65+ (FLUAD) Unknown Completed [facility] Hep B, Adol or Pedi Dosage Unknown Completed [facility] Influenza Virus Vaccine Unknown Completed [facility] Pneumococcal Polysaccharide, PPSV23 (PNEUMOVAX) Unknown Completed [facility] H1n1 Vaccine Unknown Completed [facility] Influenza Virus Vaccine (3+ yrs) Unknown Completed [facility] Influenza Virus Vaccine Quad ID 18-64 YRS Unknown Completed [facility] Influenza Virus Vaccine Quad IM Multi-dose 6+ MO Unknown Completed [facility] TDAP Unknown Completed [facility] Influenza Virus Vaccine Quad IM 3+ YRS Unknown Completed [facility] Pneumococcal 13 Conjugate, PCV13 (Prevnar 13) Unknown Completed [facility] SARS-COV-2 COVID-19 PFIZER VACCINE Unknown Completed [facility] Influenza Virus Vaccine,quad Im,preserve Free 65+ (FLUAD) Unknown Completed [facility] Hep B, Adol or Pedi Dosage Unknown Completed [facility] Influenza Virus Vaccine Unknown Completed [facility] Pneumococcal Polysaccharide, PPSV23 (PNEUMOVAX) Unknown [facility]pleted [facility] H[facility]n1 [facility]ine [facility] Influenza Virus Vaccine (3+ yrs) Unknown Completed [facility] Influenza Virus Vaccine Quad ID 18-64 YRS Unknown Completed [facility] Influenza Virus Vaccine Quad IM Multi-dose 6+ MO Unknown Completed [facility] TDAP Unknown Completed [facility] Influenza Virus Vaccine Quad IM 3+ YRS Unknown Completed [facility] Pneumococcal 13 Conjugate, PCV13 (Prevnar 13) Unknown Completed [facility] SARS-COV-2 COVID-19 PFIZER VACCINE Unknown Completed [facility] Influenza Virus Vaccine,quad Im,preserve Free 65+ (FLUAD) Unknown Completed [facility] Hep B, Adol or Pedi Dosage Unknown Completed [facility] Influenza Virus Vaccine Unknown Completed [facility] Pneumococcal Polysaccharide, PPSV23 (PNEUMOVAX) Unknown Completed [facility] H1n1 Vaccine Unknown Completed [facility] Vacc[facility] (3+ yrs) Unknown Completed [facility] Influenza Virus Vaccine Quad ID 18-64 YRS Unknown Completed [facility] Influenza Virus Vaccine Quad IM Multi-dose 6+ MO Unknown Completed [facility] TDAP Unknown Completed [facility] Influenza Virus Vaccine Quad IM 3+ YRS Unknown Completed [facility] Pneumococcal 13 Conjugate, PCV13 (Prevnar 13) Unknown Completed [facility] SARS-COV-2 COVID-19 PFIZER VACCINE Unknown Completed [facility] Influenza Virus Vaccine,quad Im,preserve Free 65+ (FLUAD) Unknown Completed [facility] Hep B, Adol or Pedi Dosage Unknown Completed [facility] Influenza Virus Vaccine Unknown Completed [facility] Pneumococcal Polysaccharide, PPSV23 (PNEUMOVAX) Unknown Completed [facility] H1n1 Vaccine Unknown Completed [facility] (3+ yrs) Unknown Completed [facility] Influenza Virus Vaccine Quad ID 18-64 YRS Unknown Completed [facility] Influenza Virus Vaccine Quad IM Multi-dose 6+ MO Unknown Completed [facility] TDAP Unknown Completed [facility] Influenza Virus Vaccine Quad IM 3+ YRS Unknown Completed [facility] Pneumococcal 13 Conjugate, PCV13 (Prevnar 13) Unknown Completed [facility] SARS-COV-2 COVID-19 PFIZER VACCINE Unknown Completed [facility] Influenza Virus Vaccine,quad Im,preserve Free 65+ (FLUAD) Unknown Completed [facility] Hep B, Adol or Pedi Dosage Unknown Completed [facility] Influenza Virus Vaccine Unknown Completed [facility] Pneumococcal Polysaccharide, PPSV23 (PNEUMOVAX) Unknown Completed [facility] H1n1 Vaccine Unknown Completed [facility] Vacc[facility] (3+ yrs) Unknown Completed [facility] Influenza Virus Vaccine Quad ID 18-64 YRS Unknown Completed [facility] Influenza Virus Vaccine Quad IM Multi-dose 6+ MO Unknown Completed [facility] TDAP Unknown Completed [facility] Influenza Virus Vaccine Quad IM 3+ YRS Unknown Completed [facility] Pneumococcal 13 Conjugate, PCV13 (Prevnar 13) Unknown Completed [facility] SARS-COV-2 COVID-19 PFIZER VACCINE Unknown Completed [facility] Influenza Virus Vaccine,quad Im,preserve Free 65+ (FLUAD) Unknown Completed [facility] Hep B, Adol or Pedi Dosage Unknown Completed [facility] Influenza Virus Vaccine Unknown Completed [facility] Pneumococcal Polysaccharide, PPSV23 (PNEUMOVAX) Unknown Completed [facility] H1n1 Vaccine Unknown Completed [facility] Influenza Virus Vaccine (3+ yrs) Unknown Completed [facility] Influenza Virus Vaccine Quad ID 18-64 YRS Unknown Completed [facility] Influenza Virus Vaccine Quad IM Multi-dose 6+ MO Unknown Completed [facility] TDAP Unknown Completed [facility] Influenza Virus Vaccine Quad IM 3+ YRS Unknown Completed [facility] Pneumococcal 13 Conjugate, PCV13 (Prevnar 13) Unknown Completed [facility] SARS-COV-2 COVID-19 PFIZER VACCINE Unknown Completed [facility] Influenza Virus Vaccine,quad Im,preserve Free 65+ (FLUAD) Unknown Completed [facility] Hep B, Adol or Pedi Dosage Unknown Completed [facility] Influenza Virus Vaccine Unknown Completed [facility] Pneumococcal Polysaccharide, PPSV23 (PNEUMOVAX) Unknown Completed [facility] Vaccine [facility] (3+ yrs) Unknown Completed [facility] Influenza Virus Vaccine Quad ID 18-64 YRS Unknown Completed [facility] Influenza Virus Vaccine Quad IM Multi-dose 6+ MO Unknown Completed [facility] TDAP Unknown Completed [facility] Influenza Virus Vaccine Quad IM 3+ YRS Unknown Completed [facility] Pneumococcal 13 Conjugate, PCV13 (Prevnar 13) Unknown Completed [facility] SARS-COV-2 COVID-19 PFIZER VACCINE Unknown Completed [facility] Influenza Virus Vaccine,quad Im,preserve Free 65+ (FLUAD) Unknown Completed [facility] Hep B, Adol or Pedi Dosage Unknown Completed [facility] Influenza Virus Vaccine Unknown Completed [facility] Pneumococcal Polysaccharide, PPSV23 (PNEUMOVAX) Unknown Completed [facility] H1n1 Vaccine Unknown Completed [facility] Influenza Virus Vaccine (3+ yrs) Unknown Completed [facility] Influenza Virus Vaccine Quad ID 18-64 YRS Unknown Completed [facility] Influenza Virus Vaccine Quad IM Multi-dose 6+ MO Unknown Completed [facility] TDAP Unknown Completed [facility] Influenza Virus Vaccine Quad IM 3+ YRS Unknown Completed [facility] Pneumococcal 13 Conjugate, PCV13 (Prevnar 13) Unknown Completed [facility] SARS-COV-2 COVID-19 PFIZER VACCINE Unknown Completed [facility] Influenza Virus Vaccine,quad Im,preserve Free 65+ (FLUAD) Unknown Completed [facility] Hep B, Adol or Pedi Dosage Unknown Completed [facility] Influenza Virus Vaccine Unknown Completed [facility] Pneumococcal Polysaccharide, PPSV23 (PNEUMOVAX) Unknown Completed [facility] H1n1 Vaccine Unknown Completed [facility] Influenza Virus Vaccine (3+ yrs) Unknown Completed [facility] Influenza Virus Vaccine Quad ID 18-64 YRS Unknown Completed [facility] Influenza Virus Vaccine Quad IM Multi-dose 6+ MO Unknown Completed [facility] TDAP Unknown Completed [facility] Influenza Virus Vaccine Quad IM 3+ YRS Unknown Completed [facility] Pneumococcal 13 Conjugate, PCV13 (Prevnar 13) Unknown Completed [facility] SARS-COV-2 COVID-19 PFIZER VACCINE Unknown Completed [facility] Influenza Virus Vaccine,quad Im,preserve Free 65+ (FLUAD) Unknown Completed [facility] Hep B, Adol or Pedi Dosage Unknown Completed [facility] Influenza Virus Vaccine Unknown Completed [facility] Pneumococcal Polysaccharide, PPSV23 (PNEUMOVAX) Unknown [facility] Vaccine (3+ yrs) Unknown Completed [facility] Influenza Virus Vaccine Quad ID 18-64 YRS Unknown Completed [facility] Influenza Virus Vaccine Quad IM Multi-dose 6+ MO Unknown Completed [facility] TDAP Unknown Completed [facility] Influenza Virus Vaccine Quad IM 3+ YRS Unknown Completed [facility] Pneumococcal 13 Conjugate, PCV13 (Prevnar 13) Unknown Completed [facility] SARS-COV-2 COVID-19 PFIZER VACCINE Unknown Completed [facility] Influenza Virus Vaccine,quad Im,preserve Free 65+ (FLUAD) Unknown Completed [facility] Hep B, Adol or Pedi Dosage Unknown Completed [facility] Influenza Virus Vaccine Unknown Completed [facility] Pneumococcal Polysaccharide, PPSV23 (PNEUMOVAX) Unknown Completed [facility] H1n1 Vaccine Unknown Completed [facility] Influenza Virus Vaccine (3+ yrs) Unknown Completed [facility] Influenza Virus Vaccine Quad ID 18-64 YRS Unknown Completed [facility] Influenza Virus Vaccine Quad IM Multi-dose 6+ MO Unknown Completed [facility] TDAP Unknown Completed [facility] Influenza Virus Vaccine Quad IM 3+ YRS Unknown Completed [facility] Pneumococcal 13 Conjugate, PCV13 (Prevnar 13) Unknown Completed [facility] SARS-COV-2 COVID-19 PFIZER VACCINE Unknown Completed [facility] Influenza Virus Vaccine,quad Im,preserve Free 65+ (FLUAD) Unknown Completed [facility] Hep B, Adol or Pedi Dosage Unknown Completed [facility] Influenza Virus Vaccine Unknown Completed [facility] Pneumococcal Polysaccharide, PPSV23 (PNEUMOVAX) Unknown Completed [facility] H1n1 Vaccine Unknown Completed [facility] Influenza Virus Vaccine (3+ yrs) Unknown Completed [facility] Influenza Virus Vaccine Quad ID 18-64 YRS Unknown Completed [facility] Influenza Virus Vaccine Quad IM Multi-dose 6+ MO Unknown Completed [facility] TDAP Unknown Completed [facility] Influenza Virus Vaccine Quad IM 3+ YRS Unknown Completed [facility] Pneumococcal 13 Conjugate, PCV13 (Prevnar 13) Unknown Completed [facility] SARS-COV-2 COVID-19 PFIZER VACCINE Unknown Completed [facility] Influenza Virus Vaccine,quad Im,preserve Free 65+ (FLUAD) Unknown Completed [facility] Hep B, Adol or Pedi Dosage [facility] [facility] Influenza Virus Vaccine Unknown Completed [facility] Pneumococcal Polysaccharide, PPSV23 (PNEUMOVAX) Unknown Completed [facility] (3+ yrs) Unknown Completed [facility] Influenza Virus Vaccine Quad ID 18-64 YRS Unknown Completed [facility] Influenza Virus Vaccine Quad IM Multi-dose 6+ MO Unknown Completed [facility] TDAP Unknown Completed [facility] Influenza Virus Vaccine Quad IM 3+ YRS Unknown Completed [facility] Pneumococcal 13 Conjugate, PCV13 (Prevnar 13) Unknown Completed [facility] SARS-COV-2 COVID-19 PFIZER VACCINE Unknown Completed [facility] Influenza Virus Vaccine,quad Im,preserve Free 65+ (FLUAD) Unknown Completed [facility] Hep B, Adol or Pedi Dosage Unknown Completed [facility] Influenza Virus Vaccine Unknown Completed [facility] Pneumococcal Polysaccharide, PPSV23 (PNEUMOVAX) Unknown Completed [facility] H1n1 Vaccine Unknown Completed [facility] Influenza Virus Vaccine (3+ yrs) Unknown Completed [facility] Influenza Virus Vaccine Quad ID 18-64 YRS Unknown Completed [facility] Influenza Virus Vaccine Quad IM Multi-dose 6+ MO Unknown Completed [facility] TDAP Unknown Completed [facility] Influenza Virus Vaccine Quad IM 3+ YRS Unknown Completed [facility] Pneumococcal 13 Conjugate, PCV13 (Prevnar 13) Unknown Completed [facility] SARS-COV-2 COVID-19 PFIZER VACCINE Unknown Completed [facility] Influenza Virus Vaccine,quad Im,preserve Free 65+ (FLUAD) Unknown Completed [facility] Hep B, Adol or Pedi Dosage Unknown Completed [facility] Influenza Virus Vaccine Unknown Completed [facility] Pneumococcal Polysaccharide, PPSV23 (PNEUMOVAX) Unknown Completed [facility] H1n1 Vaccine Unknown Completed [facility] Influenza Virus Vaccine (3+ yrs) Unknown Completed [facility] Influenza Virus Vaccine Quad ID 18-64 YRS Unknown Completed [facility] Influenza Virus Vaccine Quad IM Multi-dose 6+ MO Unknown Completed [facility] TDAP Unknown Completed [facility] Influenza Virus Vaccine Quad IM 3+ YRS Unknown Completed [facility] Pneumococcal 13 Conjugate, PCV13 (Prevnar 13) Unknown Completed [facility] SARS-COV-2 COVID-19 PFIZER VACCINE Unknown Completed [facility] Influenza Virus Vaccine,quad Im,preserve Free 65+ (FLUAD) Unknown Completed [facility] Hep B, Adol or Pedi Dosage Unknown Completed [facility] Influenza Virus Vaccine Unknown Completed [facility] Pneumococcal Polysaccharide, PPSV23 (PNEUMOVAX) Unknown Completed [facility] H1n1 Vaccine Unknown Completed [facility] Influenza Virus Vaccine (3+ yrs) Unknown Completed [facility] Influenza Virus Vaccine Quad ID 18-64 YRS Unknown Completed [facility] Influenza Virus Vaccine Quad IM Multi-dose 6+ MO Unknown Completed [facility] TDAP Unknown Completed [facility] Influenza Virus Vaccine Quad IM 3+ YRS Unknown Completed [facility] Pneumococcal 13 Conjugate, PCV13 (Prevnar 13) Unknown Completed [facility] SARS-COV-2 COVID-19 PFIZER VACCINE Unknown Completed [facility] Influenza Virus Vaccine,quad Im,preserve Free 65+ (FLUAD) Unknown Completed [facility] Hep B, Adol or Pedi Dosage Unknown Completed [facility] Influenza Virus Vaccine Unknown Completed [facility] Pneumococcal Polysaccharide, PPSV23 (PNEUMOVAX) Unknown Completed [facility] H1n1 Vaccine Unknown Completed [facility] Influenza Virus Vaccine (3+ yrs) Unknown Completed [facility] Influenza Virus Vaccine Quad ID 18-64 YRS Unknown Completed [facility] Influenza Virus Vaccine Quad IM Multi-dose 6+ MO Unknown Completed [facility] TDAP Unknown Completed [facility] Influenza Virus Vaccine Quad IM 3+ YRS Unknown Completed [facility] Pneumococcal 13 Conjugate, PCV13 (Prevnar 13) Unknown Completed [facility] SARS-COV-2 COVID-19 PFIZER VACCINE Unknown Completed [facility] Influenza Virus Vaccine,quad Im,preserve Free 65+ (FLUAD) Unknown Completed [facility] Hep B, Adol or Pedi Dosage Unknown Completed [facility] Influenza Virus Vaccine Unknown Completed [facility] Pneumococcal Polysaccharide, PPSV23 (PNEUMOVAX) Unknown Completed [facility] H1n1 Vaccine Unknown Completed [facility] Influenza Virus Vaccine (3+ yrs) Unknown Completed [facility] Influenza Virus Vaccine Quad ID 18-64 YRS Unknown Completed [facility] Influenza Virus Vaccine Quad IM Multi-dose 6+ MO Unknown Completed [facility] TDAP Unknown Completed [facility] Influenza Virus Vaccine Quad IM 3+ YRS Unknown Completed [facility] Pneumococcal 13 Conjugate, PCV13 (Prevnar 13) Unknown Completed [facility] SARS-COV-2 COVID-19 PFIZER VACCINE Unknown Completed [facility] Influenza Virus Vaccine,quad Im,preserve Free 65+ (FLUAD) Unknown Completed [facility] Hep B, Adol or Pedi Dosage Unknown Completed [facility] Influenza Virus Vaccine Unknown Completed [facility] Pneumococcal Polysaccharide, PPSV23 (PNEUMOVAX) Unknown Completed [facility] H1n1 Vaccine Unknown Completed [facility] Influenza Virus Vaccine (3+ yrs) Unknown Completed [facility] Influenza Virus Vaccine Quad ID 18-64 YRS Unknown Completed [facility] Influenza Virus Vaccine Quad IM Multi-dose 6+ MO Unknown Completed [facility] TDAP Unknown Completed [facility] Influenza Virus Vaccine Quad IM 3+ YRS Unknown Completed [facility] Pneumococcal 13 Conjugate, PCV13 (Prevnar 13) Unknown Completed [facility] SARS-COV-2 COVID-19 PFIZER VACCINE Unknown Completed [facility] Influenza Virus Vaccine,quad Im,preserve Free 65+ (FLUAD) Unknown Completed [facility] Hep B, Adol or Pedi Dosage Unknown Completed [facility] Influenza Virus Vaccine Unknown Completed [facility] Pneumococcal Polysaccharide, PPSV23 (PNEUMOVAX) Unknown Completed [facility] H1n1 Vaccine Unknown Com[facility] (3+ yrs) Unknown Completed [facility] Influenza Virus Vaccine Quad ID 18-64 YRS Unknown Completed [facility] Influenza Virus Vaccine Quad IM Multi-dose 6+ MO Unknown Completed [facility] TDAP Unknown Completed [facility] Influenza Virus Vaccine Quad IM 3+ YRS Unknown Completed [facility] Pneumococcal 13 Conjugate, PCV13 (Prevnar 13) Unknown Completed [facility] SARS-COV-2 COVID-19 PFIZER VACCINE Unknown Completed [facility] Influenza Virus Vaccine,quad Im,preserve Free 65+ (FLUAD) Unknown Completed [facility] Hep B, Adol or Pedi Dosage Unknown Completed [facility] Influenza Virus Vaccine Unknown Completed [facility] Pneumococcal Polysaccharide, PPSV23 (PNEUMOVAX) [facility] (3+ yrs) Unknown Completed [facility] Influenza Virus Vaccine Quad ID 18-64 YRS Unknown Completed [facility] Influenza Virus Vaccine Quad IM Multi-dose 6+ MO Unknown Completed [facility] TDAP Unknown Completed [facility] Influenza Virus Vaccine Quad IM 3+ YRS Unknown Completed [facility] Pneumococcal 13 Conjugate, PCV13 (Prevnar 13) Unknown Completed [facility] SARS-COV-2 COVID-19 PFIZER VACCINE Unknown Completed [facility] Influenza Virus Vaccine,quad Im,preserve Free 65+ (FLUAD) Unknown Completed [facility] Hep B, Adol or Pedi Dosage Unknown Completed [facility] Influenza Virus Vaccine Unknown Completed [facility] Pneumococcal Polysaccharide, PPSV23 (PNEUMOVAX) Unknown Completed [facility] H1n1 Vaccine Unknown Completed [facility] Influenza Virus Vaccine (3+ yrs) Unknown Completed [facility] Influenza Virus Vaccine Quad ID 18-64 YRS Unknown Completed [facility] Influenza Virus Vaccine Quad IM Multi-dose 6+ MO Unknown Completed [facility] TDAP Unknown Completed [facility] Influenza Virus Vaccine Quad IM 3+ YRS Unknown Completed [facility] Pneumococcal 13 Conjugate, PCV13 (Prevnar 13) Unknown Completed [facility] SARS-COV-2 COVID-19 PFIZER VACCINE Unknown Completed [facility] Influenza Virus Vaccine,quad Im,preserve Free 65+ (FLUAD) Unknown Completed [facility] Hep B, Adol or Pedi Dosage Unknown Completed [facility] Influenza Virus Vaccine Unknown Completed [facility] Pneumococcal Polysaccharide, PPSV23 (PNEUMOVAX) Unknown [facility] Vaccine Unknown Completed [facility] Influenza Virus Vaccine (3+ yrs) Unknown Completed [facility] Influenza Virus Vaccine Quad ID 18-64 YRS Unknown Completed [facility] Influenza Virus Vaccine Quad IM Multi-dose 6+ MO Unknown Completed [facility] TDAP Unknown Completed [facility] Influenza Virus Vaccine Quad IM 3+ YRS Unknown Completed [facility] Pneumococcal 13 Conjugate, PCV13 (Prevnar 13) Unknown Completed [facility] SARS-COV-2 COVID-19 PFIZER VACCINE Unknown Completed [facility] Influenza Virus Vaccine,quad Im,preserve Free 65+ (FLUAD) Unknown Completed [facility] Hep B, Adol or Pedi Dosage Unknown Completed [facility] Influenza Virus Vaccine Unknown Completed [facility] Pneumococcal Polysaccharide, PPSV23 (PNEUMOVAX) Unknown Completed [facility] H1n1 Vaccine Unknown Completed [facility] Influenza Virus Vaccine (3+ yrs) Unknown Completed [facility] Influenza Virus Vaccine Quad ID 18-64 YRS Unknown Completed [facility] Influenza Virus Vaccine Quad IM Multi-dose 6+ MO Unknown Completed [facility] TDAP Unknown Completed [facility] Influenza Virus Vaccine Quad IM 3+ YRS Unknown Completed [facility] Pneumococcal 13 Conjugate, PCV13 (Prevnar 13) Unknown Completed [facility] SARS-COV-2 COVID-19 PFIZER VACCINE Unknown Completed [facility] Influenza Virus Vaccine,quad Im,preserve Free 65+ (FLUAD) Unknown Completed [facility] Hep B, Adol or Pedi Dosage Unknown Completed [facility] Influenza Virus Vaccine Unknown Completed [facility] Pneumococcal Polysaccharide, PPSV23 (PNEUMOVAX) Unknown Completed [facility] H1n1 Vaccine Unknown Completed [facility] Influenza Virus Vaccine (3+ yrs) Unknown Completed [facility] Influenza Virus Vaccine Quad ID 18-64 YRS Unknown Completed [facility] Influenza Virus Vaccine Quad IM Multi-dose 6+ MO Unknown Completed [facility] TDAP Unknown Completed [facility] Influenza Virus Vaccine Quad .5 mL IM 6+ MO (FLUZONE/FLULAVAL/F LUARIX) Unknown Completed [facility] Pneumococcal 13 Conjugate, PCV13 (Prevnar 13) Unknown Completed [facility] SARS-COV-2 COVID-19 PFIZER VACCINE Unknown Completed [facility] Influenza Virus Vaccine,quad Im,preserve Free 65+ (FLUAD) Unknown Completed [facility] Vital Signs Vital Name Observation Time Observation Value Comments S [facility] Systolic blood pressure 2025-08-02 18:10:00 135 mm[Hg] [place] [facility] Diastolic blood pressure 2025-08-02 18:10:00 65 mm[Hg] [place] [facility] Heart rate 2025-08-02 18:10:00 65 /min [facility] Body temperature 2025-08-02 18:10:00 36.44 Jane [facility] Respiratory rate 2025-08-02 18:10:00 18 /min [facility] Body height 2025-08-02 18:10:00 149.9 cm [facility] 2025-08-02 18:10:00 68.856 kg [facility] BMI 2025-08-02 18:10:00 30.66 kg/m2 [facility] saturation in Arterial blood by Pulse oximetry 2025-08-02 18:10:00 97 /min [facility] Systolic blood pressure 2025-05-22 21:32:00 146 mm[Hg] [facility] Diastolic blood pressure 2025-05-22 21:32:00 84 mm[Hg] [facility] Heart rate 2025-05-22 21:32:00 58 /min [facility] 2025-05-22 21:30:00 16 /min [facility] Body height 2025-05-22 21:30:00 149.9 cm [facility] weight 2025-05-22 21:30:00 69.99 kg [facility] BMI 2025-05-22 21:30:00 31.16 kg/m2 [facility] saturation in Arterial blood by Pulse oximetry 2025-05-22 21:30:00 98 /min [facility] Systolic blood pressure 2025-03-10 21:21:00 120 mm[Hg] [facility] Diastolic blood pressure 2025-03-10 21:21:00 80 mm[Hg] [facility] Heart rate 2025-03-10 21:21:00 68 /min [facility] 2025-03-10 21:21:00 20 /min [facility] Body height 2025-03-10 21:21:00 149.9 cm [facility] weight 2025-03-10 21:21:00 69.945 kg [facility] 2025-03-10 21:21:00 31.14 kg/m2 [facility] Oxygen saturation in Arterial blood by Pulse oximetry 2025-03-10 21:21:00 100 /min [facility] Systolic blood pressure 2025-01-13 19:12:00 132 mm[Hg] [facility] Diastolic blood pressure 2025-01-13 19:12:00 68 mm[Hg] [facility] Heart rate 2025-01-13 19:12:00 60 /min [facility] temperature 2025-01-13 19:12:00 36.11 Jane [facility] Respiratory rate 2025-01-13 19:12:00 18 /min [facility] Body height 2025-01-13 19:12:00 149.9 cm [facility] Body weight 2025-01-13 19:12:00 69.854 kg [facility] BMI 2025-01-13 19:12:00 31.10 kg/m2 [facility] Oxygen saturation in Arterial blood by Pulse oximetry 2025-01-13 19:12:00 97 /min [facility] Systolic blood pressure 2024-10-05 21:57:00 133 mm[Hg] [facility] Diastolic blood pressure 2024-10-05 21:57:00 78 mm[Hg] [facility] Heart rate 2024-10-05 21:57:00 72 /min [facility] temperature 2024-10-05 21:57:00 36.94 Jane [facility] Respiratory rate 2024-10-05 21:57:00 18 /min [facility] Body height 2024-10-05 21:57:00 149.9 cm [facility] weight 2024-10-05 21:57:00 66.044 kg [facility] BMI 2024-10-05 21:57:00 29.41 kg/m2 [facility] Oxygen saturation in Arterial blood by Pulse oximetry 2024-10-05 21:57:00 97 /min [facility] Systolic blood pressure 2024-09-14 16:08:00 165 mm[Hg] [facility] Diastolic blood pressure 2024-09-14 16:08:00 84 mm[Hg] [facility] Heart rate 2024-09-14 16:08:00 61 /min [facility] Body temperature 2024-09-14 16:08:00 36.56 Jane [facility] Body height 2024-09-14 16:08:00 149.9 cm [facility] Body weight 2024-09-14 16:08:00 68.04 kg [facility] BMI 2024-09-14 16:08:00 30.30 kg/m2 [facility] Systolic blood pressure 2024-09-09 20:57:00 144 mm[Hg] [facility] Diastolic blood pressure 2024-09-09 20:57:00 77 mm[Hg] [facility] Heart rate 2024-09-09 20:57:00 59 /min [facility] Body height 2024-09-09 20:57:00 149.9 cm [facility] Body weight 2024-09-09 20:57:00 68.448 kg [facility] BMI 2024-09-09 20:57:00 30.48 kg/m2 [facility] Oxygen saturation in Arterial blood by Pulse oximetry 2024-09-09 20:57:00 97 /min [facility] Systolic blood pressure 2024-09-05 20:31:00 123 mm[Hg] [facility] Diastolic blood pressure 2024-09-05 20:31:00 77 mm[Hg] [facility] Heart rate 2024-09-05 20:31:00 66 /min [facility] Body temperature 2024-09-05 20:31:00 37.17 Jane [facility] Body height 2024-09-05 20:31:00 149.9 cm [facility] weight 2024-09-05 20:31:00 68.357 kg [facility] BMI 2024-09-05 20:31:00 30.44 kg/m2 [facility] Oxygen saturation in Arterial blood by Pulse oximetry 2024-09-05 20:31:00 98 /min [facility] Heart rate 2024-07-08 13:41:00 54 /min [facility] Body temperature 2024-07-08 13:41:00 36.33 Jane [facility] Respiratory rate 2024-07-08 13:41:00 18 /min [facility] Body height 2024-07-08 13:41:00 149.9 cm [facility] Body weight 2024-07-08 13:41:00 65.772 kg [facility] BMI 2024-07-08 13:41:00 29.29 kg/m2 [facility] Oxygen saturation in Arterial blood by Pulse oximetry 2024-07-08 13:41:00 98 /min [facility] Systolic blood pressure 2024-07-04 21:29:00 147 mm[Hg] [facility] Diastolic blood pressure 2024-07-04 21:29:00 83 mm[Hg] [facility] Heart rate 2024-07-04 21:28:00 64 [facility] Body temperature 2024-07-04 21:28:00 36.72 Jane [facility] Respiratory rate 2024-07-04 21:28:00 18 /min [facility] Body height 2024-07-04 21:28:00 149.9 cm [facility] weight 2024-07-04 21:28:00 66.679 kg [facility] BMI 2024-07-04 21:28:00 29.69 kg/m2 [facility] Oxygen saturation in Arterial blood by Pulse oximetry 2024-07-04 21:28:00 98 /min [facility] Systolic blood pressure 2024-07-04 03:53:00 178 mm[Hg] [facility] Diastolic blood pressure 2024-07-04 03:53:00 86 mm[Hg] [facility] Heart rate 2024-07-04 03:53:00 76 /min [facility] Body temperature 2024-07-04 03:53:00 36.78 Jane [facility] Respiratory rate 2024-07-04 03:53:00 18 /min [facility] Body weight 2024-07-04 03:53:00 63.504 kg [facility] BMI 2024-07-04 03:53:00 29.26 kg/m2 [facility] Oxygen saturation in Arterial blood by Pulse oximetry 2024-07-04 03:53:00 98 /min [facility] Systolic blood pressure 2024-06-30 23:38:00 142 mm[Hg] [facility] Diastolic blood pressure 2024-06-30 23:38:00 82 mm[Hg] [facility] Heart rate 2024-06-30 23:37:00 64 /min [facility] Body temperature 2024-06-30 23:37:00 36.67 Jane [facility] Respiratory rate 2024-06-30 23:37:00 20 /min [facility] Body weight 2024-06-30 23:37:00 66.588 kg [facility] BMI 2024-06-30 23:37:00 30.68 kg/m2 [facility] Oxygen saturation in Arterial blood by Pulse oximetry 2024-06-30 23:37:00 98 /min [facility] Systolic blood pressure 2024-06-10 20:42:00 141 mm[Hg] [facility] Diastolic blood pressure 2024-06-10 20:42:00 75 mm[Hg] [facility] Heart rate 2024-06-10 20:42:00 66 /min [facility] Respiratory rate 2024-06-10 20:38:00 16 /min [facility] Body weight 2024-06-10 20:38:00 67.132 kg [facility] BMI 2024-06-10 20:38:00 30.93 kg/m2 [facility] Oxygen saturation in Arterial blood by Pulse oximetry 2024-06-10 20:38:00 97 /min [facility] Systolic blood pressure 2024-06-09 21:30:00 161 mm[Hg] [facility] Diastolic blood pressure 2024-06-09 21:30:00 78 mm[Hg] [facility] Heart rate 2024-06-09 21:30:00 67 /min [facility] Respiratory rate 2024-06-09 21:30:00 17 /min [facility] Oxygen saturation in Arterial blood by Pulse oximetry 2024-06-09 21:30:00 98 /min [facility] Body temperature 2024-06-09 18:20:00 36.78 Jane [facility] Body height 2024-06-09 18:20:00 147.3 cm [facility] [facility] 2024-06-09 18:20:00 66.225 [facility] BMI 2024-06-09 18:20:00 30.51 kg/m2 [facility] Systolic blood pressure 2024-06-08 20:50:00 143 mm[Hg] [facility] Diastolic blood pressure 2024-06-08 20:50:00 83 mm[Hg] [facility] Heart rate 2024-06-08 20:50:00 67 /min [facility] Respiratory rate 2024-06-08 20:50:00 18 /min [facility] Body height 2024-06-08 20:50:00 149.9 cm [facility] Body weight 2024-06-08 20:50:00 66.951 kg [facility] BMI 2024-06-08 20:50:00 29.81 kg/m2 [facility] Oxygen saturation in Arterial blood by Pulse oximetry 2024-06-08 20:50:00 96 /min [facility] Systolic blood pressure 2024-05-27 14:35:00 154 mm[Hg] [facility] Diastolic blood pressure 2024-05-27 14:35:00 92 mm[Hg] [facility] Heart rate 2024-05-27 14:34:00 63 /min [facility] Body temperature 2024-05-27 14:34:00 37.22 Jane [facility] Respiratory rate 2024-05-27 14:34:00 18 /min [facility] Body height 2024-05-27 14:34:00 149.9 cm [facility] Body weight 2024-05-27 14:34:00 66.588 kg [facility] BMI 2024-05-27 14:34:00 29.65 kg/m2 [facility] Oxygen saturation in Arterial blood by Pulse oximetry 2024-05-27 14:34:00 98 /min [facility] Systolic blood pressure 2024-03-07 19:59:00 125 mm[Hg] [facility] Diastolic blood pressure 2024-03-07 19:59:00 74 mm[Hg] [facility] Heart rate 2024-03-07 19:59:00 60 /min [facility] Oxygen saturation in Arterial blood by Pulse oximetry 2024-03-07 19:59:00 99 /min [facility] Body temperature 2024-03-07 19:58:00 36.39 Jane [facility] Body height 2024-03-07 19:58:00 149.9 cm [facility] Body weight 2024-03-07 19:58:00 65.772 kg [facility] BMI 2024-03-07 19:58:00 29.29 kg/m2 [facility] Systolic blood pressure 2024-02-22 21:08:00 116 mm[Hg] [facility] Diastolic blood pressure 2024-02-22 21:08:00 68 mm[Hg] [facility] Heart rate 2024-02-22 21:08:00 63 /min [facility] Body temperature 2024-02-22 21:08:00 36.61 Jane [facility] Respiratory rate 2024-02-22 21:08:00 18 /min [facility] Body height 2024-02-22 21:08:00 149.9 cm [facility] 2024-02-22 21:08:00 68.13 kg [facility] 2024-02-22 21:08:00 30.34 kg/m2 [facility] Oxygen saturation in Arterial blood by Pulse oximetry 2024-02-22 21:08:00 98 /min [facility] Systolic blood pressure 2023-12-24 15:51:00 120 mm[Hg] [facility] Diastolic blood pressure 2023-12-24 15:51:00 54 mm[Hg] [facility] Heart rate 2023-12-24 15:51:00 54 /min [facility] Body temperature 2023-12-24 15:51:00 37.06 Jane [facility] Respiratory rate 2023-12-24 15:51:00 16 /min [facility] Body height 2023-12-24 15:51:00 149.9 cm [facility] Body weight 2023-12-24 15:51:00 66.996 kg [facility] BMI 2023-12-24 15:51:00 29.83 kg/m2 [facility] Oxygen saturation in Arterial blood by Pulse oximetry 2023-12-24 15:51:00 97 /min [facility] Systolic blood pressure 2023-12-10 16:36:00 119 mm[Hg] [facility] Diastolic blood pressure 2023-12-10 16:36:00 64 mm[Hg] [facility] Heart rate 2023-12-10 16:36:00 61 /min [facility] 2023-12-10 16:36:00 149.9 cm [facility] weight 2023-12-10 16:36:00 66.633 kg [facility] BMI 2023-12-10 16:36:00 29.67 kg/m2 [facility] Oxygen saturation in Arterial blood by Pulse oximetry 2023-12-10 16:36:00 97 /min [facility] Systolic blood pressure 2023-10-08 22:20:00 126 mm[Hg] [facility] Diastolic blood pressure 2023-10-08 22:20:00 72 mm[Hg] [facility] Heart rate 2023-10-08 22:20:00 84 /min [facility] Respiratory rate 2023-10-08 22:20:00 16 /min [facility] Body height 2023-10-08 22:20:00 149.9 cm [facility] Body weight 2023-10-08 22:20:00 67.161 kg [facility] BMI 2023-10-08 22:20:00 29.91 kg/m2 [facility] Systolic blood pressure 2023-09-16 20:32:00 108 mm[Hg] [facility] Diastolic blood pressure 2023-09-16 20:32:00 71 mm[Hg] [facility] Heart rate 2023-09-16 20:32:00 52 /min [facility] height 2023-09-16 20:32:00 149.9 cm [facility] Body weight 2023-09-16 20:32:00 65.318 kg [facility] BMI 2023-09-16 20:32:00 29.08 kg/m2 [facility] Oxygen saturation in Arterial blood by Pulse oximetry 2023-09-16 20:32:00 98 /min [facility] Systolic blood pressure 2023-08-20 20:49:00 130 mm[Hg] [facility] Diastolic blood pressure 2023-08-20 20:49:00 79 mm[Hg] [facility] Heart rate 2023-08-20 20:49:00 61 /min [facility] Oxygen saturation in Arterial blood by Pulse oximetry 2023-08-20 20:49:00 97 /min [facility] Body temperature 2023-08-20 20:48:00 37.17 Jane [facility] Body height 2023-08-20 20:48:00 149.9 cm [facility] Body weight 2023-08-20 20:48:00 66.225 kg [facility] 2023-08-20 20:48:00 29.49 kg/m2 [facility] Systolic blood pressure 2023-06-18 14:30:00 126 mm[Hg] [facility] Diastolic blood pressure 2023-06-18 14:30:00 72 mm[Hg] [facility] Heart rate 2023-06-18 14:30:00 96 /min [facility] Body temperature 2023-06-18 14:30:00 37 Jane [facility] Respiratory rate 2023-06-18 14:30:00 16 /min [facility] Body height 2023-06-18 14:30:00 149.9 cm [facility] Body weight 2023-06-18 14:30:00 65.772 kg [facility] BMI 2023-06-18 14:30:00 29.29 kg/m2 [facility] Oxygen saturation in Arterial blood by Pulse oximetry 2023-06-18 14:30:00 98 /min [facility] Body weight 2023-06-11 19:16:00 65.772 kg [facility] BMI 2023-06-11 19:16:00 29.29 kg/m2 [facility] Systolic blood pressure 2023-06-05 20:45:00 111 mm[Hg] [facility] Diastolic blood pressure 2023-06-05 20:45:00 73 mm[Hg] [facility] Heart rate 2023-06-05 20:45:00 56 /min [facility] Body height 2023-06-05 20:45:00 149.9 cm [facility] weight 2023-06-05 20:45:00 66.18 kg [facility] BMI 2023-06-05 20:45:00 29.47 kg/m2 [facility] Systolic blood pressure 2023-06-02 20:27:00 105 mm[Hg] [facility] Diastolic blood pressure 2023-06-02 20:27:00 70 mm[Hg] [facility] Heart rate 2023-06-02 20:27:00 70 /min [facility] Body height 2023-06-02 20:27:00 149.9 cm [facility] Body weight 2023-06-02 20:27:00 65.681 kg [facility] BMI 2023-06-02 20:27:00 29.25 kg/m2 [facility] Oxygen saturation in Arterial blood by Pulse oximetry 2023-06-02 20:27:00 99 /min [facility] Systolic blood pressure 2023-05-01 14:17:00 130 mm[Hg] [facility] Diastolic blood pressure 2023-05-01 14:17:00 62 mm[Hg] [facility] Heart rate 2023-05-01 14:17:00 60 /min [facility] Respiratory rate 2023-05-01 14:17:00 18 /min [facility] Body height 2023-05-01 14:17:00 149.9 cm [facility] Body weight 2023-05-01 14:17:00 65.862 kg [facility] BMI 2023-05-01 14:17:00 29.33 kg/m2 [facility] Oxygen saturation in Arterial blood by Pulse oximetry 2023-05-01 14:17:00 98 /min [facility] Systolic blood pressure 2023-04-03 14:04:00 132 mm[Hg] [facility] Diastolic blood pressure 2023-04-03 14:04:00 82 mm[Hg] [facility] Heart rate 2023-04-03 14:04:00 72 /min [facility] Body temperature 2023-04-03 14:04:00 36.78 Jane [facility] Body height 2023-04-03 14:04:00 149.9 cm [facility] Body weight 2023-04-03 14:04:00 66.588 kg [facility] BMI 2023-04-03 14:04:00 29.65 kg/m2 [facility] Oxygen saturation in Arterial blood by Pulse oximetry 2023-04-03 14:04:00 98 /min [facility] Systolic blood pressure 2023-03-11 15:38:00 123 mm[Hg] [facility] Diastolic blood pressure 2023-03-11 15:38:00 58 mm[Hg] [facility] Heart rate 2023-03-11 15:38:00 58 /min [facility] Body height 2023-03-11 15:38:00 149.9 cm [facility] Body weight 2023-03-11 15:38:00 67.087 kg [facility] BMI 2023-03-11 15:38:00 29.87 kg/m2 [facility] Oxygen saturation in Arterial blood by Pulse oximetry 2023-03-11 15:38:00 97 /min [facility] Systolic blood pressure 2023-02-18 18:20:00 144 mm[Hg] [facility] Diastolic blood pressure 2023-02-18 18:20:00 78 mm[Hg] [facility] Heart rate 2023-02-18 18:20:00 67 /min [facility] Oxygen saturation in Arterial blood by Pulse oximetry 2023-02-18 18:20:00 99 /min [facility] Body temperature 2023-02-18 18:19:00 36.56 Jane [facility] Respiratory rate 2023-02-18 18:19:00 16 /min [facility] Body height 2023-02-18 18:19:00 144.8 cm [facility] Body weight 2023-02-18 18:19:00 67.268 kg [facility] BMI 2023-02-18 18:19:00 32.09 kg/m2 [facility] Systolic blood pressure 2023-02-13 13:06:00 144 mm[Hg] [facility] Diastolic blood pressure 2023-02-13 13:06:00 77 mm[Hg] [facility] Heart rate 2023-02-13 13:06:00 63 /min [facility] Body height 2023-02-13 13:06:00 144.8 cm [facility] Body weight 2023-02-13 13:06:00 68.493 kg [facility] BMI 2023-02-13 13:06:00 32.68 kg/m2 [facility] Systolic blood pressure 2023-01-27 21:18:00 104 mm[Hg] [facility] Diastolic blood pressure 2023-01-27 21:18:00 63 mm[Hg] [facility] Heart rate 2023-01-27 21:18:00 67 /min [facility] Body temperature 2023-01-27 21:18:00 36.67 Jane [facility] Body height 2023-01-27 21:18:00 144.8 cm [facility] Body weight 2023-01-27 21:18:00 68.493 kg [facility] BMI 2023-01-27 21:18:00 32.68 kg/m2 [facility] Oxygen saturation in Arterial blood by Pulse oximetry 2023-01-27 21:18:00 98 /min [facility] Body height 2023-01-02 14:45:00 149.9 cm [facility] Body weight 2023-01-02 14:45:00 68.493 kg [facility] BMI 2023-01-02 14:45:00 30.50 kg/m2 [facility] Systolic blood pressure 2022-09-16 14:32:00 130 mm[Hg] [facility] Diastolic blood pressure 2022-09-16 14:32:00 78 mm[Hg] [facility] Heart rate 2022-09-16 14:32:00 59 /min [facility] Body height 2022-09-16 14:32:00 149.9 cm [facility] Body weight 2022-09-16 14:32:00 68.493 kg [facility] BMI 2022-09-16 14:32:00 30.50 kg/m2 [facility] Oxygen saturation in Arterial blood by Pulse oximetry 2022-09-16 14:32:00 98 /min [facility] Systolic blood pressure 2022-08-20 18:53:00 120 mm[Hg] [facility] Diastolic blood pressure 2022-08-20 18:53:00 75 mm[Hg] [facility] Heart rate 2022-08-20 18:53:00 71 /min [facility] Oxygen saturation in Arterial blood by Pulse oximetry 2022-08-20 18:53:00 96 /min [facility] Body temperature 2022-08-20 18:51:00 36.39 Jane [facility] Body height 2022-08-20 18:51:00 149.9 cm [facility] Body weight 2022-08-20 18:51:00 68.811 kg [facility] BMI 2022-08-20 18:51:00 30.64 kg/m2 [facility] Systolic blood pressure 2022-07-18 20:34:00 120 mm[Hg] [facility] Diastolic blood pressure 2022-07-18 20:34:00 67 mm[Hg] [facility] Heart rate 2022-07-18 20:34:00 64 /min [facility] Body temperature 2022-07-18 20:34:00 36.72 Jane [facility] Body height 2022-07-18 20:34:00 149.9 cm [facility] Body weight 2022-07-18 20:34:00 68.04 kg [facility] BMI 2022-07-18 20:34:00 30.30 kg/m2 [facility] Oxygen saturation in Arterial blood by Pulse oximetry 2022-07-18 20:34:00 98 /min [facility] Systolic blood pressure 2024-10-05 21:57:00 133 mm[Hg] [facility] Diastolic blood pressure 2024-10-05 21:57:00 78 mm[Hg] [facility] Heart rate 2024-10-05 21:57:00 72 /min [facility] Body temperature 2024-10-05 21:57:00 36.94 Jane [facility] Respiratory rate 2024-10-05 21:57:00 18 /min [facility] Body height 2024-10-05 21:57:00 149.9 cm [facility] Body weight 2024-10-05 21:57:00 66.044 kg [facility] BMI 2024-10-05 21:57:00 29.41 kg/m2 [facility] Oxygen saturation in Arterial blood by Pulse oximetry 2024-10-05 21:57:00 97 /min [place] [facility] Procedures Procedure Date / Time Performed Performing Clinician Source PROTEIN CREAT RATIO URINE RANDOM 2025-06-16 15:34:00 Gwen Bhakta [facility] URINALYSIS 2025-06-16 15:02:00 Gwen Vela [facility] PHOSPHORUS 2025-06-16 15:00:00 Gwen Vela [facility] MAGNESIUM 2025-06-16 15:00:00 Gwen Vela [facility] BASIC METABOLIC PANEL (NA, K, CL, CO2, GLUCOSE, BUN, CREATININE, CA) 2025-06-16 15:00:00 Gwen Bhakta [facility] CBC WITH DIFF 2025-06-16 15:00:00 Gwen Vela [facility] DME/SUPPLY JUSTIFICATION 2025-05-24 18:59:53 Doc tor Unassigned, [place] [facility] EXTERNAL DD-CFDNA 2025-04-18 05:00:00 Gwen Rodriguez [facility] POCT HEMOGLOBIN A1C TEST 2025-03-10 21:18:00 Justin Nava [facility] EXTERNAL DD-CFDNA 2025-01-09 06:00:00 Niels Mcnally [facility] EXTERNAL DD-CFDNA 2024-10-31 06:00:00 Gwen Rodriguez [facility] EXTERNAL DD-CFDNA 2024-10-31 06:00:00 Gwen Rodriguez [facility] HCV ANTIBODY 2024-10-07 14:59:00 Jada Bill [facility] NM BONE WHOLE BODY 3 PHASE 2024-09-28 19:16:00 Glynn Leary [facility] NM BONE WHOLE BODY 3 PHASE 2024-09-28 19:16:00 Glynn Leary [facility] MR LUMBAR SPINE WO CONTRAST 2024-09-23 21:23:44 Glynn Leary [facility] BASIC METABOLIC PANEL (NA, K, CL, CO2, GLUCOSE, BUN, CREATININE, CA) 2024-09-23 13:45:00 Gwen Bhakta [facility] EXTERNAL DD-CFDNA 2024-09-16 05:00:00 Niels Mcnally [facility] POCT HEMOGLOBIN A1C TEST 2024-09-09 21:17:00 Justin Nava [facility] POCT HEMOGLOBIN A1C TEST 2024-09-09 21:17:00 Justin Nava [facility] FLU VACC ([id number]), 6 MO-64 YRS, .5ML, IM, TIV (FLUCELVAX) 2024-09-05 21:52:33 Gwen Bhakta [facility] XR HIPS 2 VW RIGHT 2024-07-04 04:46:02 Holden Lam [facility] POCT URINALYSIS 2024-06-30 00:00:00 Lala Mcclendon [facility] URINALYSIS 2024-06-09 20:29:00 Ismael Borrego [facility] XR CHEST 2 VW 2024-06-09 19:21:00 Ismael Borrego [facility] AC PANEL 21 + LACTIC ACID 2024-06-09 19:14:00 Ismael Borrego [facility] LIPASE 2024-06-09 19:13:00 Ismael Borrego [facility] BETA HYDROXY-BUTYRATE 2024-06-09 19:13:00 Rusty Borrego ph [facility] TROPONIN I 2024-06-09 19:13:00 Ismael Borrego [facility] COMP. METABOLIC PANEL (28507) 2024-06-09 19:13:00 Ismael Borrego [facility] CBC WITH DIFF 2024-06-09 19:13:00 Ismael Borrego [facility] N-TERMINAL PRO-BNP 2024-06-09 19:13:00 Ismael Borrego [facility] MICROALBUMIN URINE 2024-06-08 21:40:[address] [facility] COMP. METABOLIC PANEL (92574) 2024-06-08 21:37:00 Jada Bill [facility] GLYCOSYLATED HEMOGLOBIN (A1C) 2024-06-08 21:37:00 Jada Bill [facility] N-TERMINAL PRO-BNP 2024-06-08 21:37:[address] [facility] POCT SARS-COV-2 ANTIGEN (BINAX NOW) 2024-05-27 15:35:00 Jada Bill [facility] POCT URINALYSIS 2024-05-27 14:53:00 [facility] DEXA AXIAL (HIP AND SPINE) 2024-04-29 20:27:04 Justin Nava [facility] LIPID PANEL ([id number])(TOTAL CHOLESTEROL, TRIGLYCERIDES, HDL) 2024-02-22 21:35:00 Jada Bill [facility] BASIC METABOLIC PANEL (NA, K, CL, CO2, GLUCOSE, BUN, CREATININE, CA) 2023-12-24 15:23:00 Justin Nava [facility] DME/SUPPLY JUSTIFICATION 2023-12-15 06:01:00 Doc tor Unassigned, [place] [facility] BI SELF-REQUESTED SCREENING TOMOSYNTHESIS BILATERAL 2023-10-23 15:49:57 Jada Bill [facility] BI SELF-REQUESTED SCREENING TOMOSYNTHESIS BILATERAL 2023-10-23 15:49:57 Jada Bill [facility] TRANSPLANT/EXT PROVIDER LAB/PATHOLOGY 2023-10-02 06:01:00 Doctor Unassigned, [place] [facility] EXTERNAL DD-CFDNA 2023-10-02 06:00:00 Aurelio Medel [facility] XR LUMBAR SPINE 2 VW 2023-09-21 15:10:09 Jada Bill [facility] XR HIPS 3 VW LEFT 2023-09-21 15:10:09 Jada Bill [facility] FLU VACC(),65+YR,0.5 ML,IM,ADJUVANTED,QUAD(FLU AD) 2023-09-16 21:13:10 Jada Bill [facility] PHOSPHORUS 2023-06-05 14:39:00 [facility] 2023-06-05 14:39:[address] Un [facility] BASIC METABOLIC PANEL (NA, K, CL, CO2, GLUCOSE, BUN, CREATININE, CA) 2023-06-05 14:39:00 GianniDarianed Adal [facility] CBC WITH DIFF 2023-06-05 14:39:00 [facility] 2023-06-05 14:39:[address] [facility] CREATININE, URINE RANDOM 2023-06-05 14:39:00 Gianni Niels Adal [facility] TOTAL PROTEIN, URINE RANDOM 2023-06-05 14:39:00 Gianni Niels Adal [facility] TRANSPLANT/EXT PROVIDER LAB/PATHOLOGY 2023-06-05 05:01:00 Doctor Unassigned, [place] [facility] EXTERNAL DD-CFDNA 2023-06-05 05:00:00 Jj Price [facility] XR CHEST 2 VW 2023-05-01 15:33:28 Farhan Liang [facility] INSURANCE CORRESPONDENCE 2023-03-30 05:01:00 Doc tor Unassigned, [place] [facility] CT THORAX WO CONTRAST 2023-02-09 16:17:36 Farhan Liang [facility] CONSENT/REFUSAL FOR DIAGNOSIS AND TREATMENT 2023-02-09 15:57:17 Doctor Unassigned, [place] [facility] ASSIGNMENT OF BENEFITS 2023-02-09 15:56:47 Docmanda r Unassigned, [place] [facility] FLU VACC(),65+YR,0.5 ML,IM,ADJUVANTED,QUAD(FLU AD) 2023-01-27 21:32:49 Jada Bill [facility] PATIENT FINANCIAL POLICY 2023-01-26 22:10:34 Doctor Unassigned, [place] [facility] URINALYSIS 2022-12-29 14:40:00 Gianni, Niels [facility]al [facility] CREATININE, URINE RANDOM 2022-12-29 14:40:00 Gianni, Niels Adal [facility] TOTAL PROTEIN, URINE RANDOM 2022-12-29 14:40:00 Gianni, Niels Adal [facility] PHOSPHORUS 2022-12-29 14:32:00 Gianni, Niels [facility]al [facility] 2022-12-29 14:32:00 Gianni, Niels Adal Un [facility] BASIC METABOLIC PANEL (NA, K, CL, CO2, GLUCOSE, BUN, CREATININE, CA) 2022-12-29 14:32:00 Gianni, Niels Adal [facility] CBC WITH DIFF 2022-12-29 14:32:00 Gianni [facility]iels [facility] ASSIGN[facility] OF BENEFITS 2022-12-29 14:15:36 Obdulia prado Unassigned, [place] [facility] PULMONARY FUNCTION TEST (RESULTS) 2022-10-14 18:53:02 Farhan Liang [facility] PAP SMEAR-LIQUID BASED-CP 2021-06-13 19:54:00 David Vogel [facility] POCT OCCULT (GUAIAC) BLOOD 2018-10-07 00:00:00 Dodie Hoang [facility] BI SCREENING MAMMOGRAM BILATERAL 2012-09-03 13:26:00 Eduard Rubio [facility] Encounters Start Date/Time End Date/Time Encounter Type Admission Type Attending Clinicians Care Facility Care Department Encounter ID Source 2025-10-13 16:30:00 2025-10-13 16:30:00 Outpatient R JUSTIN NAVA [facility] [id number] [facility] 2025-08-23 00:00:00 2025-08-25 16:20:55 [facility] [id number] [facility] 2025-08-18 00:00:00 2025-08-21 11:55:42 Refill Jada Bill [facility] 1..114 [id number] [facility] 2025-07-06 00:00:00 2025-08-12 18:34:55 Patient Secure Msg Qian rush, Gwen L[facility] 1.114 [id number] [facility] 2025-08-07 00:00:00 2025-08-11 15:09:52 Patient Secure Msg Jada Bill [facility] [id number] [facility] 2025-07-25 00:00:00 2025-08-07 13:38:17 Patient Secure Msg Jada Bill [facility] MED[facility] OFF[facility] BUILDING 1.2114 350.1.13.10 4.2.7.2.686 [id number] 044 [id number] [facility] 2025-08-02 13:30:00 2025-08-02 13:45:00 Nurse Visit R 3, Adc Pob Amb Infusion Room Justin Nava [facility] NAL BUILDING 1.84.114 350.1.13.10 4.2.7.2.686 [id number] [id number] [facility] 2025-07-28 11:15:00 2025-07-28 11:15:00 Outpatient R UNKNOWN, ATTENDING [facility] [id number] [facility] 2025-07-28 10:30:00 2025-07-28 10:32:33 Instrument Assembly Supervisor Visit R [facility] MED[facility] OFF[facility] BUILDING 1.84114 350.1.13.10 4.2.7.2.686 [id number] [facility] 2025-06-16 00:00:00 2025-07-22 18:28:45 Patient Secure Msdee Laughlin do, Gwen Lira [facility] 1.114 350.1.13.10 4.2.7.2.686 [id number] [facility] 2025-07-21 00:00:00 2025-07-21 09:33:35 RefJada Mtz [facility] RAVI?[facility] MED[facility] OFF[facility] BUILDING 1.114 350.1.13.10 4.2.7.2.686 [id number] 044 [id number] [facility] 2025-07-13 00:00:00 2025-07-13 09:15:31 Telephone Justin Nava [facility] RAVI?[facility] OFF[facility] BUILDING 1.114 350.1.13.10 4.2.7.2.686 [id number] [facility] 2025-07-07 00:00:00 2025-07-07 08:25:35 Refill Jada Bill [facility] MEDICAL OFFICE BUILDING 1.0114 350.1.13.10 4.2.7.2.686 [id number] 044 [id number] [facility] 2025-07-06 00:00:00 2025-07-06 17:32:46 Orders Only Suha Meneses Danielle R [facility] 1.0.114 350.1.13.10 4.2.7.2.686 [id number] [facility] 2025-07-06 00:00:00 2025-07-06 17:07:24 Orders Only Booker Welch, Booker [facility] 1.114 350.1.13.10 4.2.7.2.686 [id number] [facility] 2025-07-05 00:00:00 2025-07-06 16:00:26 Patient Secure Msg Qian rush, Gwen K N [facility] 1.114 350.1.13.10 4.2.7.2.686 [id number] [facility] 2025-06-16 15:45:00 2025-06-16 16:00:00 Instrument Assembly Supervisor Visit R Jessi, Jada Ryan, Ang [facility] MEDICAL OFFICE BUILDING 1.114 350.1.13.10 4.2.7.2.686 [id number] [facility] 2025-06-16 09:45:00 2025-06-16 10:44:31 Instrument Assembly Supervisor Visit R Gurwinder Bowen Katie Lab, Ang [facility] MEDICAL OFFICE BUILDING 1.0114 350.1.13.10 4.2.7.2.686 [id number] [facility] 2025-06-12 00:00:00 2025-06-13 14:40:14 Refill Jada Bill [facility] MED[facility] OFFICE BUILDING 1.284.114 350.1.13.10 4.2.7.2.686 [id number] 044 [id number] [facility] 2025-06-06 00:00:00 2025-06-06 14:42:22 Telephone Farhan Liang [facility] PROFESS[facility] NAL BUILDING 1.114 350.1.13.10 4.2.7.2.686 [id number] [id number] [facility] 2025-06-05 09:00:00 2025-06-05 09:00:00 Outpatient R [facility] [id number] [facility] 2025-05-29 15:46:00 2025-05-29 23:59:00 Hospital Encounter R FARHAN LI[facility] 1.114 350.1.13.10 4.2.7.2.686 [id number] [facility] 2025-05-25 00:00:00 2025-05-29 08:09:11 Refill Jada Bill [facility] MED[facility] OFFICE BUILDING 1.84114 350.1.13.10 4.2.7.2.686 [id number] 044 [id number] [facility] 2025-05-24 00:00:00 2025-05-25 02:04:11 Orders Only Doctor Unassigned, [place] Doctor Unassigned, [place] [facility] 1.84.114 350.1.13.10 4.2.7.2.686 [id number] [facility] 2025-05-24 00:00:00 2025-05-24 11:06:51 Refill Jada Bill [facility] RAVI?[facility] 1.2.840.114 350.1.13.10 4.2.7.2.686 [id number] 044 [id number] [facility] 2025-05-23 00:00:00 2025-05-24 07:32:48 Refill Qian rush, Gwen Lira [facility] 1.2840.114 350.1.13.10 4.2.7.2.686 [id number] [facility] 2025-05-23 00:00:00 2025-05-23 09:11:51 Telephone Farhan Liang [facility] BUILDING 1.2.840.114 350.1.13.10 4.2.7.2.686 [id number] 085 [id number] [facility] 2025-05-23 00:00:00 2025-05-23 08:25:53 Telephone ZohrehJada aguila [facility] RAVI?[facility] MED[facility] OFF[facility] BUILDING 1.2840.114 350.1.13.10 4.2.7.2.686 [id number] [id number] [facility] 2025-05-22 16:30:00 2025-05-22 16:48:08 Office Visit R Farhan Liang [facility] BUILDING 1.2.840.114 350.1.13.10 4.2.7.2.686 [id number] 085 [id number] [facility] 2025-05-19 00:00:00 2025-05-19 11:11:10 Telephone Jada Bill [facility] RAVI?[facility] OFF[facility] BUILDING 1.2840.114 350.1.13.10 4.2.7.2.686 [id number] 044 [id number] [facility] 2025-05-17 00:00:00 2025-05-18 18:16:24 Telephone Jada Bill [facility] PROFESSIO NAL BUILDING 1.2.840.114 350.1.13.10 4.2.7.2.686 [id number] [id number] [facility] 2025-05-17 00:00:00 2025-05-18 10:58:05 Refill Jada Bill [facility] RAVI?[facility] MED[facility] OFF[facility] BUILDING 1.2.840.114 350.1.13.10 4.2.7.2.686 [id number] 044 [id number] [facility] 2025-05-18 00:00:00 2025-05-18 10:11:17 Refill Gwen Laughlin do [facility] R[facility]I?[facility] MED[facility] OFF[facility] BUILDING 1.2840.114 350.1.13.10 4.2.7.2.686 [id number] 044 [id number] [facility] 2025-04-26 00:00:00 2025-05-11 10:52:43 Telephone Jada Bill [facility] R[facility]I?[facility] MED[facility] OFF[facility] BUILDING 1.2840.114 350.1.13.10 4.2.7.2.686 [id number] 044 [id number] [facility] 2025-05-10 00:00:00 2025-05-10 08:01:16 Letter (Out) Carmina Myers, Carmina [facility] 1.2840.114 350.1.13.10 4.2.7.2.686 [id number] [facility] 2025-04-18 00:00:00 2025-05-04 20:39:15 Patient Secure Msg [facility] MED[facility] OFF[facility] BUILDING 1.2840.114 350.1.13.10 4.2.7.2.686 [id number] 044 [id number] [facility] 2025-04-21 00:00:00 2025-04-28 17:18:10 Refill Jada Bill [facility] MED[facility] OFFICE BUILDING 1.2840.114 350.1.13.10 4.2.7.2.686 [id number] 044 [id number] [facility] 2025-04-28 00:00:00 2025-04-28 12:35:17 Abstract [facility]aughlin [facility] 1.0.114 350.1.13.10 4.2.7.2.686 [id number] [facility] 2025-04-24 00:00:00 2025-04-24 23:00:11 Refill Gwen [facility]aughlin [facility] 1..114 350.1.13.10 4.2.7.2.686 [id number] [facility] 2025-04-24 00:00:00 2025-04-24 13:48:53 Case Management Gwne Laughlin do [facility] 1..114 350.1.13.10 4.2.7.2.686 [id number] [facility] 2025-04-24 00:00:00 2025-04-24 08:48:03 Refill Gwen Laughlin do [facility] BUILD[facility] 1.84.114 350.1.13.10 4.2.7.2.686 [id number] 044 [id number] [facility] 2025-04-18 00:00:00 2025-04-18 23:59:00 Hospital Encounter NIELS VELARDE [facility] ACO [id number] [facility] 2025-04-18 00:00:00 2025-04-18 13:26:48 Patient Secure Msg Justin Nava [facility] R[facility]I?[facility] MED[facility] OFF[facility] BUILDING 1.2.840.114 350.1.13.10 4.2.7.2.686 [id number] [facility] 2025-04-12 16:00:00 2025-04-12 16:00:00 Outpatient R JADA BILL [facility] [id number] [facility] 2025-04-11 00:00:00 2025-04-12 08:31:39 Telephone Jada Bill [facility]I?[facility] MED[facility] OFF[facility] BUILDING 1.2.840.114 350.1.13.10 4.2.7.2.686 [id number] [id number] [facility] 2025-04-09 00:00:00 2025-04-11 09:03:12 Refill Jada Bill [facility] R[facility]I?[facility] MEDICAL OFFICE BUILDING 1.2.840.114 350.1.13.10 4.2.7.2.686 [id number] [id number] [facility] 2025-04-08 00:00:00 2025-04-10 08:03:40 Telephone Justin Nava [facility] BU[facility] 1.2.840.114 350.1.13.10 4.2.7.2.686 [id number] [facility] 2025-04-07 00:00:00 2025-04-08 19:22:58 Refill Jada Bill [facility] R[facility]I?[facility] MEDICAL OFFICE BUILDING 1.2.840.114 350.1.13.10 4.2.7.2.686 [id number] 044 [id number] [facility] 2025-04-04 00:00:00 2025-04-04 09:08:22 Orders Only Roxanna Buitrago Meghan M [facility] 1.2.840.114 350.1.13.10 4.2.7.2.686 [id number] [facility] 2025-03-22 00:00:00 2025-03-22 09:20:16 Refill Jada Bill [facility] MEDICAL OFFICE BUILDING 1.2.840.114 350.1.13.10 4.2.7.2.686 [id number] 044 [id number] [facility] 2025-03-20 00:00:00 2025-03-20 08:45:38 Refill Gwen Laughlin do [facility] MEDICAL OFFICE BUILDING 1.2.840.114 350.1.13.10 4.2.7.2.686 [id number] 044 [id number] [facility] 2019-09-10 00:00:00 2025-03-16 22:05:19 [facility] 1.2.840.114 350.1.13.10 4.2.7.2.686 [id number] [facility] 2023-08-04 00:00:00 2025-03-16 21:19:11 Refill Gwen Laughlin do [facility] 1.2.840.114 350.1.13.10 4.2.7.2.686 [id number] [facility] 2023-08-04 00:00:00 2025-03-16 21:19:09 Refill Gwen Laughlin do [facility] 1.2.840.114 350.1.13.10 4.2.7.2.686 [id number] [facility] 2025-03-15 08:45:00 2025-03-15 09:00:00 Instrument Assembly Supervisor Visit Lab, Ang - Shara Bland Lab, Ang - Dereck [facility] RAVI?[facility] MEDICAL OFFICE BUILDING 1.2.840.114 350.1.13.10 4.2.7.2.686 [id number] [facility] 2025-03-15 08:45:00 2025-03-15 08:45:00 Outpatient R SHARA SCHMITZ [facility] [id number] [facility] 2025-03-10 16:30:00 2025-03-10 16:56:53 Outpatient R JUSTIN NAVA [facility] [id number] [facility] 2025-03-10 16:30:00 2025-03-10 16:56:53 Office Visit Justin Nava [facility] MEDICAL OFFICE BUILDING 1.2.840.114 350.1.13.10 4.2.7.2.686 [id number] [facility] 2025-03-10 00:00:00 2025-03-10 12:14:49 Refill Jada Bill [facility]I?[facility] MEDICAL OFFICE BUILDING 1.2.840.114 350.1.13.10 4.2.7.2.686 [id number] 044 [id number] [facility] 2025-03-09 00:00:00 2025-03-09 14:41:05 Telephone Jada Bill [facility]I?[facility] MEDICAL OFFICE BUILDING 1.2.840.114 350.1.13.10 4.2.7.2.686 [id number] 044 [id number] [facility] 2025-03-08 16:00:00 2025-03-08 16:00:00 Outpatient R JADA BILL [facility] [id number] [facility] 2025-03-06 09:00:00 2025-03-06 09:00:00 Outpatient R [facility] [id number] [facility] 2025-03-06 00:00:00 2025-03-06 07:51:19 [facility] MED[facility] OFF[facility] BUILDING 1.84.114 350.1.13.10 4.2.7.2.686 [id number] 044 [id number] [facility] 2025-02-22 00:00:00 2025-02-22 15:03:28 Jada Hutchins [facility] MED[facility] OFF[facility] BUILDING 1..114 350.1.13.10 4.2.7.2.686 [id number] 044 [id number] [facility] 2025-02-15 00:00:00 2025-02-22 08:41:29 Philip [facility] 1..114 350.1.13.10 4.2.7.2.686 [id number] [facility] 2025-02-20 00:00:00 2025-02-20 16:53:25 Philip Bill Jada [facility] MED[facility] OFFICE BUILDING 1.84.114 350.1.13.10 4.2.7.2.686 [id number] [id number] [facility] 2025-02-10 16:00:00 2025-02-10 16:00:00 Outpatient R LANDY JADA [facility] [id number] [facility] 2025-01-19 14:20:00 2025-01-19 14:20:00 Outpatient R MOIZ SUE [facility] [id number] [facility] 2025-01-16 00:00:00 2025-01-16 15:29:55 Abstract Niels Mcnally [facility] 1.114 350.1.13.10 4.2.7.2.686 [id number] [facility] 2025-01-13 13:00:00 2025-01-13 13:15:00 Nurse Visit 2, Adc Pob Amb Infusion Room Jacqueline Irizarry 2, Adc Pob Amb Infusion Room [facility] PROFESSIO NAL BUILDING 1.2840.114 350.1.13.10 4.2.7.2.686 [id number] [facility] 2025-01-13 13:00:00 2025-01-13 13:00:00 Outpatient R IRIZARRYWILLIAMEL [facility] [id number] [facility] 2025-01-11 16:00:00 2025-01-11 16:00:00 Outpatient R LANG CAMACHO STRAHIL [facility] [id number] [facility] 2025-01-10 00:00:00 2025-01-10 16:06:45 Telephone Lang Camacho [facility] BUILDING 1.84.114 350.1.13.10 4.2.7.2.686 [id number] [id number] [facility] 2012-09-03 00:00:00 2025-01-07 05:08:14 Orders Only Eduard Rubio [facility] 1..114 350.1.13.10 4.2.7.2.686 [id number] [facility] 2018-08-06 00:00:00 2025-01-07 03:14:54 Orders Only Enedelia Peoples Erin M [facility] 1.2.114 350.1.13.10 4.2.7.2.686 [id number] [facility] 2021-03-07 00:00:00 2025-01-07 02:56:16 Orders Only Keith Zhang Jovee [facility] 1.2840.114 350.1.13.10 4.2.7.2.686 [id number] [facility] 2025-01-05 13:49:00 2025-01-05 23:59:00 Hospital Encounter Neelam Brenda [facility] 1.2840.114 350.1.13.10 4.2.7.2.686 [id number] [facility] 2025-01-05 00:00:00 2025-01-05 23:59:00 Outpatient R BRENDA RICHTER [facility] [id number] [facility] 2025-01-05 11:00:00 2025-01-05 11:00:00 Outpatient R [facility] [id number] [facility] 2025-01-03 00:00:00 2025-01-04 17:15:04 Refill Jada Bill 1.2.840.1 88266.1.1 3.104.2.7 .3.334699 .8 [id number] [facility] 2025-01-04 00:00:00 2025-01-04 11:31:33 Refill Aurelio Medel 1.2.840.1 97563.1.1 3.104.2.7 .3.450782 .8 [id number] [facility] 2024-12-29 00:00:00 2024-12-29 12:37:14 Refill Jada Bill 1.2.840.1 31075.1.1 3.104.2.7 .3.545672 .8 [id number] [facility] 2024-12-22 00:00:00 2024-12-23 17:05:27 RefJada Mtz 1.2.840.1 06265.1.1 3.104.2.7 .3.694712 .8 [id number] [facility] 2024-12-22 15:20:00 2024-12-22 15:20:00 Outpatient R MOIZ SUE [facility] [id number] [facility] 2024-12-21 00:00:00 2024-12-22 07:05:11 RefJada Mtz 1.2.840.1 03898.1.1 3.104.2.7 .3.851861 .8 [id number] [facility] 2024-12-10 00:00:00 2024-12-19 13:06:05 Jada Hutchins 1.2.840.1 27024.1.1 3.104.2.7 .3.553174 .8 [id number] [facility] 2024-12-17 00:00:00 2024-12-19 11:10:23 Refill Gwen Laughlin do 1.2.840.1 57165.1.1 3.104.2.7 .3.769078 .8 [id number] [facility] 2024-12-19 09:00:00 2024-12-19 09:00:00 Outpatient R [facility] [id number] [facility] 2024-12-10 00:00:00 2024-12-10 00:00:00 Gwen Thao do 1.2.840.1 30712.1.1 3.104.2.7 .3.213140 .8 [id number] [facility] 2024-12-09 16:45:00 2024-12-09 16:45:00 Outpatient WES MC PAUL [facility] [id number] [facility] 2024-12-05 00:00:00 2024-12-06 17:20:00 Jada Hutchins 1.2.840.1 90449.1.1 3.104.2.7 .3.077194 .8 [id number] [facility] 2024-12-01 00:00:00 2024-12-01 16:40:30 RefJada Mtz 1.2840.1 02361.1.1 3.104.2.7 .3.595036 .8 [id number] [facility] 2024-11-21 00:00:00 2024-11-25 08:13:21 Telephone Niels Mcnally 1.2840.1 65496.1.1 3.104.2.7 .3.215549 .8 [id number] [facility] 2024-11-18 00:00:00 2024-11-18 13:44:03 Justin Ornelas 1.840.1 99796.1.1 3.104.2.7 .3.590976 .8 [id number] [facility] 2024-11-11 14:45:00 2024-11-11 14:45:00 Outpatient LUL ESCAMILLA [facility] [id number] [facility] 2024-11-09 00:00:00 2024-11-09 13:08:55 Abstract Gwen Laughlin do 1.840.1 73233.1.1 3.104.2.7 .3.407087 .8 [id number] [facility] 2024-11-09 00:00:00 2024-11-09 00:00:00 Scanned Documents Doctor Unassigned, [place] 1.0.1 38754.1.1 3.104.2.7 .3.684418 .8 [id number] [facility] 2024-10-04 00:00:00 2024-11-07 10:41:05 Telephone Gwen Laughlin do [facility] 1.840.114 350.1.13.10 4.2.7.2.686 [id number] [facility] 2024-11-04 16:45:00 2024-11-04 16:45:00 Outpatient WES MC PAUL [facility] [id number] [facility] 2024-10-30 00:00:00 2024-10-31 13:48:37 Patient Secure Msg Justin Nava 1..840.1 07236.1.1 3.104.2.7 .3.741777 .8 [id number] [facility] 2024-10-28 00:00:00 2024-10-28 00:00:00 Outpatient R JADA BILL [facility] [id number] [facility] 2024-10-26 16:30:00 2024-10-26 16:30:00 Outpatient R LANG CAMACHO STRAHIL [facility] [id number] [facility] 2024-10-10 09:30:00 2024-10-10 09:30:00 Outpatient R LUL GARCIA [facility] [id number] [facility] 2024-10-07 16:45:00 2024-10-07 16:45:00 Outpatient R WES CALHOUN PAUL [facility] [id number] [facility] 2024-10-07 00:00:00 2024-10-07 16:30:09 Patient Secure Msg Doctor Unassigned, [place] .840.1 20427.1.1 3.104.2.7 .3.747239 .8 [id number] [facility] 2024-10-07 09:00:00 2024-10-07 09:13:47 Instrument Assembly Supervisor Visit Jada Bill Lab, Ang - Db 1..840.1 43913.1.1 3.104.2.7 .3.826986 .8 [id number] [facility] 2024-10-07 09:00:00 2024-10-07 09:00:00 Outpatient R LANDY JADA [facility] [id number] [facility] 2024-10-07 00:00:00 2024-10-07 00:00:00 Travel 1.2.840.1 72069.1.1 3.104.2.7 .3.383325 .8 1.2840.114 350.1.13.10 4.2.7.3.698 [id number] [facility] 2024-10-05 16:00:00 2024-10-05 16:20:53 Outpatient R LANDYJEANEIE [facility] [id number] [facility] 2024-10-05 16:00:00 2024-10-05 16:20:53 Office Visit Landy [facility]?DANKMingo [facility] 1.84.114 350.1.13.10 4.2.7.2.686 [id number] [facility] 2024-10-05 00:00:00 2024-10-05 08:39:44 Abstract Niels Mcnally [facility] 1.84.114 350.1.13.10 4.2.7.2.686 [id number] [facility] 2024-10-03 15:15:00 2024-10-03 15:15:00 Outpatient R LUL GARCIA [facility] [id number] [facility] 2024-10-02 00:00:00 2024-10-03 11:49:04 Refill Landy [facility] 1.84.114 350.1.13.10 4.2.7.2.686 [id number] [facility] 2024-09-28 08:59:51 2024-09-28 23:59:00 Hospital Encounter Wes Calhoun [facility] 1..840.114 350.1.13.10 4.2.7.2.686 [id number] [facility] 2024-09-28 08:59:18 2024-09-28 23:59:00 Outpatient R TRENAWES OTT TIFFANIANNEMARIEWES ABBOTT [facility] [id number] [facility] 2024-09-28 08:59:18 2024-09-28 23:59:00 Hospital Encounter Wes Calhoun [facility] 1..840.114 350.1.13.10 4.2.7.2.686 [id number] [facility] 2024-09-27 10:00:00 2024-09-27 10:00:00 Outpatient R LUL GARCIA [facility] [id number] [facility] 2024-09-24 00:00:00 2024-09-26 08:08:36 Jada Hutchins [facility] 1..840.114 350.1.13.10 4.2.7.2.686 [id number] [facility] 2024-09-23 15:32:56 2024-09-23 23:59:00 Outpatient R TRENAWES OTT TIFFANITADEOWES LAY [facility] [id number] [facility] 2024-09-23 15:32:56 2024-09-23 23:59:00 Hospital Encounter Kenneth fabiánWes [facility] 1.2.840.114 350.1.13.10 4.2.7.2.686 [id number] [facility] 2024-09-23 09:15:00 2024-09-23 09:30:00 Instrument Assembly Supervisor Visit Lab, Jada Ryan [facility], Gurwinder Harden [facility] 1.840.114 350.1.13.10 4.2.7.2.686 [id number] [facility] 2024-09-22 15:40:00 2024-09-22 15:40:00 Outpatient R MOIZ SUE [facility] [id number] [facility] 2024-09-21 15:30:00 2024-09-21 15:30:00 Outpatient R JADA BILL [facility] [id number] [facility] 2024-09-20 00:00:00 2024-09-20 12:08:24 Telephone Gwen Laughlin do [facility] 1.840.114 350.1.13.10 4.2.7.2.686 [id number] [facility] 2024-09-20 09:45:00 2024-09-20 09:45:00 Outpatient R LUL GARCIA [facility] [id number] [facility] 2024-09-19 00:00:00 2024-09-19 11:47:20 [facility]ada [facility] 1.840.114 350.1.13.10 4.2.7.2.686 [id number] [facility] 2024-09-18 00:00:00 2024-09-19 08:31:18 Jada Hutchins [facility] 1.840.114 350.1.13.10 4.2.7.2.686 [id number] [facility] 2024-09-16 12:19:00 2024-09-16 23:59:00 Hospital Encounter Niels Mcnally Adal [facility] 1.2840.114 350.1.13.10 4.2.7.2.686 [id number] [facility] 2024-09-16 00:00:00 2024-09-16 23:59:00 Outpatient R NIELS MCNALLY [facility] [id number] [facility] 2024-09-15 00:00:00 2024-09-15 10:33:01 Patient Secure Justin Mazariegos [facility] MEDICAL OFFICE BUILD[facility] 1.20.114 350.1.13.10 4.2.7.2.686 [id number] [facility] 2024-09-14 00:00:00 2024-09-14 15:11:31 Jada Hutchins [facility] MEDICAL OFFICE BUILDING 1.2840.114 350.1.13.10 4.2.7.2.686 [id number] 044 [id number] [facility] 2024-09-14 12:00:00 2024-09-14 12:15:00 Instrument Assembly Supervisor Visit Lab, [facility] Wes Calhoun, [facility] [place] 1.2840.114 350.1.13.10 4.2.7.2.686 [id number] [facility] 2024-09-14 11:00:00 2024-09-14 11:52:33 Outpatient R WES CALHOUN PAUL [facility] [id number] [facility] 2024-09-14 11:00:00 2024-09-14 11:52:33 Office Visit Wes Calhoun [facility] 1.2840.114 350.1.13.10 4.2.7.2.686 [id number] [facility] 2024-09-14 11:00:00 2024-09-14 11:00:00 Outpatient R WES CALHOUN PAUL [facility] [id number] [facility] 2024-09-09 16:00:00 2024-09-09 16:35:16 Outpatient R BRANDYJUSTIN [facility] [id number] [facility] 2024-09-09 16:00:00 2024-09-09 16:35:16 Office Visit Justin Nava [facility] MED[facility] OFFICE BUILDING 1.840.114 350.1.13.10 4.2.7.2.686 [id number] [facility] 2024-09-08 00:00:00 2024-09-08 14:44:17 Telephone Lang Camacho [facility] 1..114 350.1.13.10 4.2.7.2.686 [id number] [facility] 2024-09-05 15:30:00 2024-09-05 17:02:21 Outpatient R GWEN LAUGHLIN DO [facility] [id number] [facility] 2024-09-05 15:30:00 2024-09-05 17:02:21 Office Visit Gwen Laughlin do [facility] 1.114 350.1.13.10 4.2.7.2.686 [id number] [facility] 2024-08-29 09:00:00 2024-08-29 09:15:00 Instrument Assembly Supervisor Visit Lab, Gwen Weiss do Lab, Gurwinder Harden [facility] MED[facility] OFFICE BUILDING 1.840.114 350.1.13.10 4.2.7.2.686 [id number] [facility] 2024-08-29 09:00:00 2024-08-29 09:00:00 Outpatient R GWEN LAUGHLIN DO [facility] [id number] [facility] 2024-08-25 00:00:00 2024-08-26 17:03:14 Refill Landy Jada [facility] MEDICAL OFFICE BUILDING 1.2840.114 350.1.13.10 4.2.7.2.686 [id number] [id number] [facility] 2024-08-25 00:00:00 2024-08-26 15:35:15 Refill Shara Schmitz [facility] MEDICAL OFFICE BUILDING 1.2840.114 350.1.13.10 4.2.7.2.686 [id number] 044 [id number] [facility] 2024-08-26 00:00:00 2024-08-26 13:14:55 Refill Landy Jada [facility] MEDICAL OFFICE BUILDING 1.2840.114 350.1.13.10 4.2.7.2.686 [id number] [id number] [facility] 2024-08-25 00:00:00 2024-08-26 09:29:45 Refill Farhan Liang [facility] 1.2840.114 350.1.13.10 4.2.7.2.686 [id number] [facility] 2024-08-25 00:00:00 2024-08-26 08:24:03 Refill Lul Garcia [facility] 1.2840.114 350.1.13.10 4.2.7.2.686 [id number] [facility] 2024-08-24 00:00:00 2024-08-24 13:53:52 Telephone Niels Mcnally [facility] 1.114 350.1.13.10 4.2.7.2.686 [id number] [facility] 2024-08-20 00:00:00 2024-08-23 09:34:33 Patient Secure Msg Justin Nava [facility]I?[facility] MEDICAL OFFICE BUILDING 1..114 350.1.13.10 4.2.7.2.686 [id number] [facility] 2024-08-23 00:00:00 2024-08-23 07:02:54 Refgricelda Bill Jada [facility] MED[facility] OFFICE BUILDING 1..114 350.1.13.10 4.2.7.2.686 [id number] [id number] [facility] 2024-08-18 00:00:00 2024-08-18 07:39:07 Refgricelda Landy Jada [facility] MED[facility] OFFICE BUILDING 1.114 350.1.13.10 4.2.7.2.686 [id number] 044 [id number] [facility] 2024-08-12 15:45:00 2024-08-12 15:45:00 Outpatient WES MC PAUL [facility] [id number] [facility] 2024-08-10 16:00:00 2024-08-10 16:00:00 Outpatient R JADA BILL [facility] [id number] [facility] 2024-06-23 00:00:00 2024-07-28 10:47:35 Patient Secure Msg Justin Nava [facility] MED[facility] OFFICE BUILD[facility] 1.84.114 350.1.13.10 4.2.7.2.686 [id number] [facility] 2024-07-27 16:00:00 2024-07-27 16:00:00 Outpatient Johan ZOHREHJEANE AguilaIE [facility] [id number] [facility] 2024-06-17 00:00:00 2024-07-23 18:24:53 Patient Secure Msg Justin Nava [facility] MEDICAL OFFICE BUILDING 1.840.114 350.1.13.10 4.2.7.2.686 [id number] [facility] 2024-07-21 00:00:00 2024-07-21 08:36:18 Refgricelda Zohrehmingo Jada [facility] MEDICAL OFFICE BUILDING 1.840.114 350.1.13.10 4.2.7.2.686 [id number] [id number] [facility] 2024-07-13 16:00:00 2024-07-13 16:00:00 Outpatient Johan LANDY JADA [facility] [id number] [facility] 2024-07-11 16:30:00 2024-07-11 16:30:00 Outpatient Johan ZOHREHJADA Aguila [facility] [id number] [facility] 2024-07-06 00:00:00 2024-07-08 15:11:27 Patient Secure g Kathleen Marie [facility] MEDICAL OFFICE BUILDING 1.840.114 350.1.13.10 4.2.7.2.686 [id number] 044 [id number] [facility] 2024-07-08 00:00:00 2024-07-08 13:33:56 Pre Visit Outreach Luis Alberto Riggins Clairelle D [facility] 1.840.114 350.1.13.10 4.2.7.2.686 [id number] [facility] 2024-07-08 09:00:00 2024-07-08 09:03:00 Nurse Visit 2, Adc Pob Amb Infusion Room Justin Nava 2, Adc Pob Amb Infusion Room [facility] NAL BUILDING 1.2.840.114 350.1.13.10 4.2.7.2.686 [id number] [id number] [facility] 2024-07-08 09:00:00 2024-07-08 09:00:00 Outpatient R DAMIÁN NAVAIN [facility] [id number] [facility] 2024-07-06 00:00:00 2024-07-06 15:50:13 Patient Secure Msg Doctor Unassigned, [place] Doctor Unassigned, [place] [facility] MEDICAL OFFICE BUILDING 1.2.840.114 350.1.13.10 4.2.7.2.686 [id number] [id number] [facility] 2024-07-06 00:00:00 2024-07-06 14:50:20 Patient Secure M[facility] MEDICAL OFFICE BUILDING 1.2.840.114 350.1.13.10 4.2.7.2.686 [id number] [id number] [facility] 2024-06-30 00:00:00 2024-07-06 13:12:48 Telephone BrandyDamiánin Nano [facility] MEDICAL OFFICE BUILDING 1.2.840.114 350.1.13.10 4.2.7.2.686 [id number] [facility] 2024-07-04 16:30:00 2024-07-04 16:50:42 Outpatient R KATHLEEN MARIE [facility] [id number] [facility] 2024-07-04 16:30:00 2024-07-04 16:50:42 [facility] MEDICAL OFFICE BUILDING 1.2840.114 350.1.13.10 4.2.7.2.686 [id number] 044 [id number] [facility] 2024-07-04 00:00:00 2024-07-04 16:39:30 Telephone Jada Bill [facility] MEDICAL OFFICE BUILDING 1.2840.114 350.1.13.10 4.2.7.2.686 [id number] 044 [id number] [facility] 2024-07-04 00:00:00 2024-07-04 16:22:34 Patient Secure Msg Jada Bill [facility] MEDICAL OFFICE BUILDING 1.840.114 350.1.13.10 4.2.7.2.686 [id number] 044 [id number] [facility] 2024-07-03 23:00:00 2024-07-04 01:20:00 Emergency X CAROLE, SALMIN CAROLE, SALMIN [facility] ERT [id number] [facility] 2024-07-03 23:00:00 2024-07-04 01:20:00 Emergency CaroleHolden jones [facility] 1.840.114 350.1.13.10 4.2.7.2.686 [id number] [facility] 2024-07-01 00:00:00 2024-07-01 13:51:33 Refill Jada Bill [facility] MEDICAL OFFICE BUILDING 1.0.114 350.1.13.10 4.2.7.2.686 [id number] 044 [id number] [facility] 2024-06-29 00:00:00 2024-07-01 13:06:17 Refill Jada Bill [facility] MEDICAL OFFICE BUILDING 1.2840.114 350.1.13.10 4.2.7.2.686 [id number] 044 [id number] [facility] 2024-07-01 08:00:00 2024-07-01 08:00:00 Outpatient R JADA BILL [facility] [id number] [facility] 2024-06-30 18:15:00 2024-06-30 18:46:34 Outpatient R LALA MCCLENDON [facility] [id number] [facility] 2024-06-30 18:15:00 2024-06-30 18:46:34 Urgent Care Lala Mcclendon Unknown, Attending [facility] MEDICAL OFFICE BUILDING 1.2.840.114 350.1.13.10 4.2.7.2.686 [id number] [facility] 2024-06-23 00:00:00 2024-06-30 15:12:35 Telephone Justin N[facility] MEDICAL OFFICE BUILDING 1.2.840.114 350.1.13.10 4.2.7.2.686 [id number] [facility] 2024-06-21 00:00:00 2024-06-30 15:12:25 [facility] MEDICAL OFFICE BUILD[facility] 1.2.840.114 350.1.13.10 4.2.7.2.686 [id number] [facility] 2024-06-27 16:00:00 2024-06-27 16:00:00 Outpatient R JADA BILL [facility] [id number] [facility] 2024-06-24 16:10:00 2024-06-24 16:10:00 Outpatient WES MC PAUL [facility] [id number] [facility] 2024-06-23 00:00:00 2024-06-24 07:26:43 RefJada Mtz [facility] MED[facility] OFF[facility] BUILDING 1.2.840.114 350.1.13.10 4.2.7.2.686 [id number] 044 [id number] [facility] 2024-06-23 00:00:00 2024-06-23 15:31:57 Refill Qian rush, Gwen Lira [facility] 1.2.840.114 350.1.13.10 4.2.7.2.686 [id number] [facility] 2024-06-21 00:00:00 2024-06-22 17:19:02 Telephone Brandy Justin Mcgill [facility] MEDICAL OFFICE BUILD[facility] 1.2.840.114 350.1.13.10 4.2.7.2.686 [id number] [facility] 2024-06-11 00:00:00 2024-06-14 13:15:51 Refill Jada Bill [facility] MEDICAL OFFICE BUILDING 1.2.840.114 350.1.13.10 4.2.7.2.686 [id number] [id number] [facility] 2024-06-13 00:00:00 2024-06-13 13:57:13 Patient Secure Msg Qian rush, [facility] 1.2.840.114 350.1.13.10 4.2.7.2.686 [id number] [facility] 2024-06-13 00:00:00 2024-06-13 12:44:48 Refill Qian rush, Gwen Lira [facility] 1.2.840.114 350.1.13.10 4.2.7.2.686 [id number] [facility] 2024-06-13 00:00:00 2024-06-13 11:16:40 Patient Secure Jada Kim [facility] 1.2840.114 350.1.13.10 4.2.7.2.686 [id number] [id number] [facility] 2024-06-11 00:00:00 2024-06-13 10:26:49 Patient Secure Jada Kim [facility] 1.2840.114 350.1.13.10 4.2.7.2.686 [id number] [id number] [facility] 2024-06-10 15:30:00 2024-06-10 16:32:23 Outpatient R [facility] [id number] [facility] 2024-06-10 15:30:00 2024-06-10 16:32:23 Office Visit R BRANDY [facility] 1.84.114 350.1.13.10 4.2.7.2.686 [id number] [facility] 2024-06-09 00:00:00 2024-06-10 08:27:36 Pina Guaman [facility] NAL BUILD[facility] 1..840.114 350.1.13.10 4.2.7.2.686 [id number] [facility] 2024-06-09 13:19:00 2024-06-09 16:59:00 Emergency X [facility] [id number] [facility] 2024-06-09 13:19:00 2024-06-09 16:59:00 Emergency Last [facility] 1.840.114 350.1.13.10 4.2.7.2.686 [id number] [facility] 2024-06-08 15:30:00 2024-06-08 16:54:51 Outpatient R JADA BILL [facility] [id number] [facility] 2024-06-08 15:30:00 2024-06-08 16:54:51 Office Visit Jada Bill [facility] MED[facility] OFFICE BUILD[facility] 1.0.114 350.1.13.10 4.2.7.2.686 [id number] [id number] [facility] 2024-06-08 16:30:00 2024-06-08 16:46:46 Instrument Assembly Supervisor Visit Lab, Gurwinder BrunerJada aguila [facility] MEDICAL OFFICE BUILDING 1.114 350.1.13.10 4.2.7.2.686 [id number] [facility] 2024-06-07 00:00:00 2024-06-07 13:33:45 Aryan Warner [facility] 1.114 350.1.13.10 4.2.7.2.686 [id number] [facility] 2024-06-06 00:00:00 2024-06-06 10:28:34 Telephone Gwen Laughlin do [facility] 1.114 350.1.13.10 4.2.7.2.686 [id number] [facility] 2024-06-06 09:00:00 2024-06-06 09:15:00 Instrument Assembly Supervisor Visit Lab, Gurwinder Brunermingo Jada [facility] MEDICAL OFFICE BUILDING 1.114 350.1.13.10 4.2.7.2.686 [id number] [facility] 2024-06-06 09:00:00 2024-06-06 09:00:00 Outpatient R JADA BILL [facility] [id number] [facility] 2024-06-03 00:00:00 2024-06-03 15:37:12 Patient Secure Msg Jada Bill [facility] MED[facility] OFF[facility] BUILD[facility] 1..840.114 350.1.13.10 4.2.7.2.686 [id number] [id number] [facility] 2024-06-03 14:50:00 2024-06-03 14:50:00 Outpatient R KENNETH IS, WES RINCON [facility] [id number] [facility] 2024-05-30 00:00:00 2024-05-31 13:04:11 Refill Zohrehmingo Jada [facility] MEDICAL OFFICE BUILD[facility] 1..840.114 350.1.13.10 4.2.7.2.686 [id number] [id number] [facility] 2024-05-30 00:00:00 2024-05-31 09:04:51 Refill Farhan Liang [facility] 1..840.114 350.1.13.10 4.2.7.2.686 [id number] [facility] 2024-05-27 09:30:00 2024-05-27 10:43:44 Outpatient R JADA BILL [facility] [id number] [facility] 2024-05-27 09:30:00 2024-05-27 10:43:44 Office Visit Jada Bill [facility] MED[facility] OFFICE BUILDING 1..840.114 350.1.13.10 4.2.7.2.686 [id number] [id number] [facility] 2024-05-24 00:00:00 2024-05-24 14:00:40 Aurelio aGn [facility] 1..114 350.1.13.10 4.2.7.2.686 [id number] [facility] 2024-05-24 00:00:00 2024-05-24 07:30:44 Jada Hutchins [facility] 1.2840.114 350.1.13.10 4.2.7.2.686 [id number] [id number] [facility] 2024-05-23 16:00:00 2024-05-23 16:00:00 Outpatient R JADA BILL [facility] [id number] [facility] 2024-05-18 16:40:00 2024-05-18 16:40:00 Outpatient R JESSY OMALLEY [facility] [id number] [facility] 2024 00:00:00 2024 08:31:26 Pre Visit Outreach KendrickValeri [facility] 1.0.114 350.1.13.10 4.2.7.2.686 [id number] [facility] 2024-05-01 00:00:00 2024-05-02 15:52:35 Jada Hutchins [facility] 1.2840.114 350.1.13.10 4.2.7.2.686 [id number] [id number] [facility] 2024-04-29 15:25:00 2024-04-29 23:59:00 Hospital Encounter Justin Nava [facility] 1.2840.114 350.1.13.10 4.2.7.2.686 [id number] [facility] 2024-04-29 15:05:18 2024-04-29 15:24:00 Outpatient R JUSTIN NAVA [facility] [id number] [facility] 2024-04-29 15:05:18 2024-04-29 15:24:00 Hospital Encounter Justin Nava [facility] 1.2840.114 350.1.13.10 4.2.7.2.686 [id number] [facility] 2024-04-07 00:00:00 2024-04-08 10:29:57 Refill Landy Jada [facility] MED[facility] OFF[facility] BUILD[facility] 1.0.114 350.1.13.10 4.2.7.2.686 [id number] [id number] [facility] 2024-03-30 16:40:00 2024-03-30 16:40:00 Outpatient R JESSY OMALLEY [facility] [id number] [facility] 2024-03-25 00:00:00 2024-03-25 00:00:00 Refill Landy Jada [facility] OFF[facility] BUILD[facility] 1.0.114 350.1.13.10 4.2.7.2.686 [id number] [id number] [facility] 2024-03-24 00:00:00 2024-03-24 00:00:00 Refill Landy [facility] R[facility] MED[facility] OFF[facility] BUILD[facility] 1.840.114 350.1.13.10 4.2.7.2.686 [id number] [id number] [facility] 2024-03-24 00:00:00 2024-03-24 00:00:00 Aurelio Gan [facility] 1.840.114 350.1.13.10 4.2.7.2.686 [id number] [facility] 2024-03-19 00:00:00 2024-03-19 00:00:00 Refill ZohrehJada aguila [facility] OFF[facility] BUILDING 1.2.840.114 350.1.13.10 4.2.7.2.686 [id number] 044 [id number] [facility] 2024-03-16 00:00:00 2024-03-16 00:00:00 Refill Gwen Laughlin do [facility] MEDICAL OFFICE BUILDING 1.2840.114 350.1.13.10 4.2.7.2.686 [id number] 044 [id number] [facility] 2024-03-14 00:00:00 2024-03-14 00:00:00 Refill Jada Bill [facility] 1.2840.114 350.1.13.10 4.2.7.2.686 [id number] [facility] 2024-03-11 00:00:00 2024-03-11 00:00:00 Refill Jada Bill [facility] MED[facility] OFFICE BUILD[facility] 1.2840.114 350.1.13.10 4.2.7.2.686 [id number] 044 [id number] [facility] 2024-03-09 00:00:00 2024-03-09 00:00:00 Refill Pina Doty [facility] NAL BUILD[facility] 1.2840.114 350.1.13.10 4.2.7.2.686 [id number] [facility] 2024-03-09 00:00:00 2024-03-09 00:00:00 Refill Shara Schmitz [facility] MEDICAL OFFICE BUILDING 1.2840.114 350.1.13.10 4.2.7.2.686 [id number] [facility] 2024-03-07 15:40:00 2024-03-07 15:40:00 Office Visit Gwen Laughlin do [facility] 1.114 350.1.13.10 4.2.7.2.686 [id number] [facility] 2024-03-07 15:40:00 2024-03-07 15:23:56 Outpatient R GWEN LAUGHLIN DO [facility] [id number] [facility] 2024-03-05 00:00:00 2024-03-05 00:00:00 Refill Shara Schmitz [facility] MED[facility] OFF[facility] BUILD[facility] 1.114 350.1.13.10 4.2.7.2.686 [id number] [facility] 2024-03-04 00:00:00 2024-03-04 00:00:00 [facility] 1.114 350.1.13.10 4.2.7.2.686 [id number] [facility] 2024-02-23 00:00:00 2024-02-23 00:00:00 Telephone Jada Bill [facility] MED[facility] OFF[facility] BU[facility] 1.114 350.1.13.10 4.2.7.2.686 [id number] [facility] 2024-02-23 00:00:00 2024-02-23 00:00:00 Telephone Landy Jada [facility] MEDICAL OFFICE BUILD[facility] 1..114 350.1.13.10 4.2.7.2.686 [id number] [facility] 2024-02-22 16:30:00 2024-02-22 16:44:33 Instrument Assembly Supervisor Visit Lab, Gurwinder Brunermingo [facility] RAVI?[facility] OFFICE BUILDING 1.2.840.114 350.1.13.10 4.2.7.2.686 [id number] [facility] 2024-02-22 16:00:00 2024-02-22 16:26:13 Outpatient R JADA BILL [facility] [id number] [facility] 2024-02-22 16:00:00 2024-02-22 16:26:13 Office Visit Landy [facility] RAVI?[facility] OFFICE [facility] 1.2.840.114 350.1.13.10 4.2.7.2.686 [id number] [facility] 2024-02-15 15:40:00 2024-02-15 15:40:00 Outpatient R GWEN LAUGHLIN DO [facility] [id number] [facility] 2024-02-12 00:00:00 2024-02-12 00:00:00 Outpatient R FARHAN LIANG SHIWAN [facility] [id number] [facility] 2024-02-10 08:45:00 2024-02-10 09:00:00 Instrument Assembly Supervisor [facility] Lab[facility] OFFICE [facility] 1.2.840.114 350.1.13.10 4.2.7.2.686 [id number] [facility] 2024-02-10 08:45:00 2024-02-10 08:45:00 Outpatient R JADA BILL [facility] [id number] [facility] 2024-01-18 15:30:00 2024-01-18 15:30:00 Outpatient R JADA BILL [facility] [id number] [facility] 2023-12-28 15:40:00 2023-12-28 15:40:00 Outpatient R MANUELACastroJESSY WALSH [facility] [id number] [facility] 2023-12-24 11:00:00 2023-12-24 11:15:00 Nurse Visit Nurse, Adc Pob Amb Usha Nava Justin Mcgill [facility] 1..840.114 350.1.13.10 4.2.7.2.686 [id number] [facility] 2023-12-24 11:00:00 2023-12-24 11:00:00 Outpatient R JUSTIN NAVA [facility] [id number] [facility] 2023-12-24 09:30:00 2023-12-24 09:30:00 Instrument Assembly Supervisor Visit 2, Adc Brenda Smith [facility] BUILDING 1..840.114 350.1.13.10 4.2.7.2.686 [id number] [facility] 2023-12-21 15:30:00 2023-12-21 15:30:00 Outpatient R JADA BILL [facility] [id number] [facility] 2023-12-21 00:00:00 2023-12-21 00:00:00 [facility] BUILD[facility] 1..840.114 350.1.13.10 4.2.7.2.686 [id number] [facility] 2023-12-21 00:00:00 2023-12-21 00:00:00 Refill Landy Jada [facility] R[facility]I?[facility] BUILDING 1..840.114 350.1.13.10 4.2.7.2.686 [id number] [facility] 2023-12-18 10:00:00 2023-12-18 10:00:00 Outpatient R [facility] [id number] [facility] 2023-12-15 00:00:00 2023-12-15 00:00:00 Telephone Farhan Liang [facility] BUILDING 1.2.840.114 350.1.13.10 4.2.7.2.686 [id number] [facility] 2023-12-15 00:00:00 2023-12-15 00:00:00 Orders Only Doctor Unassigned, [place] [facility] 1.840.114 350.1.13.10 4.2.7.2.686 [id number] [facility] 2023-12-10 10:00:00 2023-12-10 11:00:53 Out[facility] [id number] [facility] 2023-12-10 10:00:00 2023-12-10 11:00:53 Office Visit Farhan Liang [facility] BUILDING 1.840.114 350.1.13.10 4.2.7.2.686 [id number] [facility] 2023-12-08 00:00:00 2023-12-08 00:00:00 Telephone Justin Nava [facility] 1..840.114 350.1.13.10 4.2.7.2.686 [id number] [facility] 2023-12-04 10:00:00 2023-12-04 10:00:00 Outpatient R [facility] [id number] [facility] 2023-12-03 00:00:00 2023-12-03 00:00:00 Shara Plata [facility] MED[facility] OFFICE BUILDING 1..840.114 350.1.13.10 4.2.7.2.686 [id number] [facility] 2023-12-03 00:00:00 2023-12-03 00:00:00 [facility] 1.114 350.1.13.10 4.2.7.2.686 [id number] [facility] 2023-11-27 16:00:00 2023-11-27 16:00:00 Outpatient R ZOHREHMingo JADA [facility] [id number] [facility] 2023-11-27 00:00:00 2023-11-27 00:00:00 Refill Landy [facility] MED[facility] OFF[facility] BUILD[facility] 1.84.114 350.1.13.10 4.2.7.2.686 [id number] [facility] 2023-11-27 00:00:00 2023-11-27 00:00:00 Refill Landy Jada [facility] MED[facility] OFF[facility] BUILDING 1.84.114 350.1.13.10 4.2.7.2.686 [id number] [facility] 2023-11-22 00:00:00 2023-11-22 00:00:00 Refill [facility]aughlin [facility] 1.114 350.1.13.10 4.2.7.2.686 [id number] [facility] 2023-11-20 08:45:00 2023-11-20 11:05:17 Outpatient R UNKNOWN, ATTENDING [facility] [id number] [facility] 2023-11-20 08:45:00 2023-11-20 09:00:00 Instrument Assembly Supervisor Visit Lab, Ang - Db Unknown, Attending [facility] MEDICAL OFFICE BUILDING 1.840.114 350.1.13.10 4.2.7.2.686 [id number] [facility] 2023-11-19 09:00:00 2023-11-19 09:00:00 Outpatient R [facility] [id number] [facility] 2023-11-19 00:00:00 2023-11-19 00:00:00 Telephone Niels Mc[facility] 1..840.114 350.1.13.10 4.2.7.2.686 [id number] [facility] 2023-10-27 13:30:00 2023-10-27 13:30:00 Outpatient R JADA BILL [facility] [id number] [facility] 2023-10-23 09:00:41 2023-10-23 23:59:00 Outpatient R BEBA BURRELL [facility] [id number] [facility] 2023-10-23 09:00:41 2023-10-23 23:59:00 Hospital Encounter Beba Burrell [facility] 1..840.114 350.1.13.10 4.2.7.2.686 [id number] [facility] 2023-10-23 00:00:00 2023-10-23 00:00:00 Patient Secure Msg Doctor Unassigned, [place] [facility] BU[facility] 1..840.114 350.1.13.10 4.2.7.2.686 [id number] [facility] 2023-10-14 15:30:00 2023-10-14 15:30:00 Outpatient R PINA DOTY [facility] [id number] [facility] 2023-10-08 16:00:00 2023-10-08 16:33:37 Outpatient R ANEL GOLDEN [facility] [id number] [facility] 2023-10-08 16:00:00 2023-10-08 16:33:37 Office Visit Anel Golden [facility] 1..114 350.1.13.10 4.2.7.2.686 [id number] [facility] 2023-10-06 00:00:00 2023-10-06 00:00:00 Abstract Aurelio Medel [facility] MULTISPEC [facility] 1.114 350.1.13.10 4.2.7.2.686 [id number] [facility] 2023-10-05 00:00:00 2023-10-05 00:00:00 Outpatient BEBA QUEEN [facility] [id number] [facility] 2023-10-02 00:00:00 2023-10-02 00:00:00 Orders Only Doctor Unassigned, [place] [facility] 1.114 350.1.13.10 4.2.7.2.686 [id number] [facility] 2023-10-01 16:15:00 2023-10-01 16:15:00 Outpatient R ANEL GOLDEN [facility] [id number] [facility] 2023-09-23 00:00:00 2023-09-23 00:00:00 Patient Secure Jada Kim [facility] 1.114 350.1.13.10 4.2.7.2.686 [id number] [facility] 2023-09-22 00:00:00 2023-09-22 00:00:00 RefGwen Encinas do [facility] 1.114 350.1.13.10 4.2.7.2.686 [id number] [facility] 2023-09-21 09:15:41 2023-09-21 23:59:00 Outpatient R JADA BILL [facility] [id number] [facility] 2023-09-21 09:15:00 2023-09-21 23:59:00 Hospital Encounter Jada Bill [facility] 1.2.840.114 350.1.13.10 4.2.7.2.686 [id number] [facility] 2023-09-21 00:00:00 2023-09-21 00:00:00 Patient Secure Msg Jada Bill [facility] MEDICAL OFFICE BUILDING 1.2840.114 350.1.13.10 4.2.7.2.686 [id number] [facility] 2023-09-18 00:00:00 2023-09-18 00:00:00 Patient Secure Msg Jada Bill [facility] MEDICAL OFFICE BUILDING 1.2840.114 350.1.13.10 4.2.7.2.686 [id number] [id number] [facility] 2023-09-18 00:00:00 2023-09-18 00:00:00 Telephone Jada Bill [facility] MEDICAL OFFICE BUILDING 1.2840.114 350.1.13.10 4.2.7.2.686 [id number] [id number] [facility] 2023-09-18 00:00:00 2023-09-18 00:00:00 Refill Landy [facility] RAVI?[facility] MEDICAL OFFICE BUILDING 1.2840.114 350.1.13.10 4.2.7.2.686 [id number] [facility] 2023-09-17 11:30:00 2023-09-17 11:30:00 Outpatient R FARHAN LIANG SHIWAN [facility] [id number] [facility] 2023-09-17 00:00:00 2023-09-17 00:00:00 Refill Jada Bill [facility] NATO RODRIGUES?[facility]ERT [facility] MEDICAL OFFICE BUILDING 1.2840.114 350.1.13.10 4.2.7.2.686 [id number] [facility] 2023-09-17 00:00:00 2023-09-17 00:00:00 Refill Jada Bill [facility] MEDICAL OFFICE BUILDING 1.20.114 350.1.13.10 4.2.7.2.686 [id number] [facility] 2023-09-16 16:30:00 2023-09-16 16:57:26 Outpatient R ZOHREHJADA Aguila [facility] [id number] [facility] 2023-09-16 16:30:00 2023-09-16 16:57:26 Instrument Assembly Supervisor Visit Lab, Ang - Db [facility]y [facility] MEDICAL OFFICE BUILDING 1.20.114 350.1.13.10 4.2.7.2.686 [id number] [facility] 2023-09-16 15:30:00 2023-09-16 16:23:56 Office Visit ZohrehJada aguila [facility] MEDICAL OFFICE BUILDING 1.20.114 350.1.13.10 4.2.7.2.686 [id number] [facility] 2023-09-13 00:00:00 2023-09-13 00:00:00 Refill Jada Bill [facility] MEDICAL OFFICE BUILDING 1.840.114 350.1.13.10 4.2.7.2.686 [id number] [facility] 2023-09-13 00:00:00 2023-09-13 00:00:00 Philip BillJada [facility] OFF[facility] BUILDING 1.84.114 350.1.13.10 4.2.7.2.686 [id number] [facility] 2023-09-10 15:30:00 2023-09-10 15:30:00 Outpatient R PINA DOTY [facility] [id number] [facility] 2023-09-08 15:30:00 2023-09-08 15:30:00 Outpatient R JADA BILL [facility] [id number] [facility] 2023-09-07 09:30:00 2023-09-07 09:30:00 Outpatient R FARHAN LIANG SHIWAN [facility] [id number] [facility] 2023-08-20 16:00:00 2023-08-20 16:20:00 Office Visit Aurelio Medel Syed Adal [facility] 1..114 350.1.13.10 4.2.7.2.686 [id number] [facility] 2023-08-20 16:00:00 2023-08-20 16:00:00 Outpatient R NIELS MCNALLY [facility] [id number] [facility] 2023-08-19 14:00:00 2023-08-19 14:00:00 Outpatient R ARYAN PRICE [facility] [id number] [facility] 2023-08-18 08:30:00 2023-08-18 09:24:44 Instrument Assembly Supervisor Visit Lab, Gurwinder [facility] MEDICAL OFFICE BUILDING 1.840.114 350.1.13.10 4.2.7.2.686 [id number] [facility] 2023-08-18 08:30:00 2023-08-18 08:30:00 Outpatient JADA ALANIZ [facility] [id number] [facility] 2023-08-14 00:00:00 2023-08-14 00:00:00 Refill Farhan [facility] 1..840.114 350.1.13.10 4.2.7.2.686 [id number] [facility] 2023-08-06 00:00:00 2023-08-06 00:00:00 Refill Landy Jada [facility]DANKMingo [facility] MEDICAL OFFICE BUILDING 1.840.114 350.1.13.10 4.2.7.2.686 [id number] [facility] 2023-08-04 00:00:00 2023-08-04 00:00:00 Patient Secure Msg ZohrehJada aguila [facility] 1.840.114 350.1.13.10 4.2.7.2.686 [id number] [facility] 2023-08-01 00:00:00 2023-08-01 00:00:00 Refill Qian rush, Gwen Lira [facility] 1.84.114 350.1.13.10 4.2.7.2.686 [id number] [facility] 2023-07-30 15:30:00 2023-07-30 15:30:00 Outpatient PINA DE JESUS [facility] [id number] [facility] 2023-07-03 00:00:00 2023-07-03 00:00:00 Patient Secure Msg [facility] MED[facility] OFF[facility] BUILDING 1.840.114 350.1.13.10 4.2.7.2.686 [id number] [facility] 2023-07-01 00:00:00 2023-07-01 00:00:00 Refill Jada Bill [facility] OFFICE BUILDING 1.2840.114 350.1.13.10 4.2.7.2.686 [id number] [facility] 2023-06-27 00:00:00 2023-06-27 00:00:00 Refill Pina Doty [facility] NAL BUILDING 1.0.114 350.1.13.10 4.2.7.2.686 [id number] [facility] 2023-06-22 00:00:00 2023-06-22 00:00:00 Refill Landy Jada [facility] MEDICAL OFFICE BUILDING 1.840.114 350.1.13.10 4.2.7.2.686 [id number] [facility] 2023-06-22 00:00:00 2023-06-22 00:00:00 Abstract Aryan Price [facility] 1.114 350.1.13.10 4.2.7.2.686 [id number] [facility] 2023-06-18 10:00:00 2023-06-18 10:15:00 Nurse Visit 1, Adc Infusion Nurse Jada Bill [facility] 1.114 350.1.13.10 4.2.7.2.686 [id number] [facility] 2023-06-18 10:00:00 2023-06-18 10:00:00 Outpatient R JADA BILL [facility] [id number] [facility] 2023-06-12 10:00:00 2023-06-12 10:00:00 Outpatient R [facility] [id number] [facility] 2023-06-11 14:00:00 2023-06-11 16:07:32 Outpatient R RADHA LUL [facility] [id number] [facility] 2023-06-11 14:00:00 2023-06-11 16:07:32 Office Visit Lul Garcia [facility] 1..840.114 350.1.13.10 4.2.7.2.686 [id number] [facility] 2023-06-10 11:15:00 2023-06-10 11:26:01 Outpatient R GWEN LAUGHLIN DO [facility] [id number] [facility] 2023-06-10 11:15:00 2023-06-10 11:26:01 Instrument Assembly Supervisor Visit Lab, Gwen Weiss do N [facility]?DANKMingo [facility] MEDICAL OFFICE BUILDING 1.2.840.114 350.1.13.10 4.2.7.2.686 [id number] [facility] 2023-06-10 10:00:00 2023-06-10 10:00:00 Outpatient R PINA DOTY [facility] [id number] [facility] 2023-06-05 15:30:00 2023-06-05 16:19:59 Outpatient R JUSTIN NAVA [facility] [id number] [facility] 2023-06-05 15:30:00 2023-06-05 16:19:59 Office Visit Justin Nava [facility] MEDICAL OFFICE BUILDING 1..840.114 350.1.13.10 4.2.7.2.686 [id number] [facility] 2023-06-05 10:15:00 2023-06-05 12:30:29 Instrument Assembly Supervisor Visit Lab, Gurwinder Medel Aurelio [facility] MEDICAL OFFICE BUILDING 1..114 350.1.13.10 4.2.7.2.686 [id number] [facility] 2023-06-05 00:00:00 2023-06-05 00:00:00 Orders Only Doctor Unassigned, [place] [facility] 1.0.114 350.1.13.10 4.2.7.2.686 [id number] [facility] 2023-06-04 00:00:00 2023-06-04 00:00:00 Refill Jada Bill [facility] MEDICAL OFFICE BUILDING 1.114 350.1.13.10 4.2.7.2.686 [id number] [facility] 2023-06-04 00:00:00 2023-06-04 00:00:00 Refill Pina Doty [facility] NAL BUILDING 1.114 350.1.13.10 4.2.7.2.686 [id number] [facility] 2023-06-04 00:00:00 2023-06-04 00:00:00 Refill Gianfranco Aurelio [facility] M[facility]PEC [facility] 1.114 350.1.13.10 4.2.7.2.686 [id number] [facility] 2023-06-04 00:00:00 2023-06-04 00:00:00 Refill Gwen Laughlin do [facility] MEDICAL OFFICE BUILDING 1.114 350.1.13.10 4.2.7.2.686 [id number] [id number] [facility] 2023-06-04 00:00:00 2023-06-04 00:00:00 Refill Niels Mcnally [facility] 1.114 350.1.13.10 4.2.7.2.686 [id number] [facility] 2023-06-04 00:00:00 2023-06-04 00:00:00 Refill Aryan Price [facility] MEDICAL OFFICE BUILDING 1.84114 350.1.13.10 4.2.7.2.686 [id number] [id number] [facility] 2023-06-02 15:30:00 2023-06-02 15:47:07 Outpatient R JADA BILL [facility] [id number] [facility] 2023-06-02 15:30:00 2023-06-02 15:47:07 Office Visit Jada Bill [facility] MEDICAL OFFICE BUILDING 1.84114 350.1.13.10 4.2.7.2.686 [id number] [facility] 2023-05-29 00:00:00 2023-05-29 00:00:00 Telephone Aurelio Medel [facility] IALTY [facility] 1.114 350.1.13.10 4.2.7.2.686 [id number] [facility] 2023-05-29 00:00:00 2023-05-29 00:00:00 Case Management Farhan Liang [facility] NAL BUILDING 1.84.114 350.1.13.10 4.2.7.2.686 [id number] [facility] 2023-05-29 00:00:00 2023-05-29 00:00:00 Telephone [facility] 1.84.114 350.1.13.10 4.2.7.2.686 [id number] [facility] 2023-05-25 10:15:00 2023-05-25 10:30:00 Instrument Assembly Supervisor Visit Lab, Jada Ryan [facility] MEDICAL OFFICE BUILDING 1.114 350.1.13.10 4.2.7.2.686 [id number] [facility] 2023-05-25 10:15:00 2023-05-25 10:15:00 Outpatient R JADA BILL [facility] [id number] [facility] 2023-05-22 15:30:00 2023-05-22 15:30:00 Outpatient R JADA BILL [facility] [id number] [facility] 2023-05-21 09:00:00 2023-05-21 09:00:00 Outpatient R [facility] [id number] [facility] 2023-05-08 15:30:00 2023-05-08 15:30:00 Outpatient R JADA BILL [facility] [id number] [facility] 2023-05-07 00:00:00 2023-05-07 00:00:00 [facility] 1.114 350.1.13.10 4.2.7.2.686 [id number] [facility] 2023-05-07 00:00:00 2023-05-07 00:00:00 Patient Secure Msg Doctor Unassigned, [place] [facility] MEDICAL OFFICE BUILDING 1.84.114 350.1.13.10 4.2.7.2.686 [id number] [facility] 2023-05-04 09:30:00 2023-05-04 09:30:00 Outpatient R ZOHREHJADA Aguila [facility] [id number] [facility] 2023-05-01 10:18:45 2023-05-01 23:59:00 Outpatient [facility] [id number] [facility] 2023-05-01 10:18:45 2023-05-01 23:59:00 Hospital Encounter Danuta Liangnyyash [facility] 1.2840.114 350.1.13.10 4.2.7.2.686 [id number] [facility] 2023-05-01 09:00:00 2023-05-01 09:55:05 Office Visit Danuta Liangnyyash [facility] BUILDING 1.2840.114 350.1.13.10 4.2.7.2.686 [id number] [facility] 2023-05-01 00:00:00 2023-05-01 00:00:00 Telephone Pina Doty [facility] BUILDING 1.2840.114 350.1.13.10 4.2.7.2.686 [id number] [facility] 2023-04-30 00:00:00 2023-04-30 00:00:00 Telephone Justin Nava [facility] MEDICAL OFFICE BUILDING 1.2840.114 350.1.13.10 4.2.7.2.686 [id number] [facility] 2023-04-24 00:00:00 2023-04-24 00:00:00 Refill Gwen Laughlin do [facility] MEDICAL OFFICE BUILDING 1.2840.114 350.1.13.10 4.2.7.2.686 [id number] [facility] 2023-04-23 00:00:00 2023-04-23 00:00:00 Refill Aryan Price [facility] 1.84.114 350.1.13.10 4.2.7.2.686 [id number] [facility] 2023-04-16 11:30:00 2023-04-16 11:30:00 Outpatient FARHAN MCNULTY SHIWAN [facility] [id number] [facility] 2023-04-09 00:00:00 2023-04-09 00:00:00 Refill Landy Jada [facility] 1.840.114 350.1.13.10 4.2.7.2.686 [id number] [facility] 2023-04-09 00:00:00 2023-04-09 00:00:00 Patient Secure Ynes Rachel [facility] MEDICAL OFFICE BUILDING 1.840.114 350.1.13.10 4.2.7.2.686 [id number] [facility] 2023-04-09 00:00:00 2023-04-09 00:00:00 Refill Landy Jada [facility] 1.84.114 350.1.13.10 4.2.7.2.686 [id number] [facility] 2023-04-03 10:08:42 2023-04-03 23:59:00 Outpatient R JADA BILL [facility] [id number] [facility] 2023-04-03 09:30:00 2023-04-03 09:37:17 Office Visit Jada Bill [facility] 1.2840.114 350.1.13.10 4.2.7.2.686 [id number] [facility] 2023-04-01 14:00:00 2023-04-01 14:00:00 Outpatient JADA ALANIZ [facility] [id number] [facility] 2023-03-30 00:00:00 2023-03-30 00:00:00 Orders Only Doctor Unassigned, [place] [facility] 1.840.114 350.1.13.10 4.2.7.2.686 [id number] [facility] 2023-03-26 10:00:00 2023-03-26 10:00:00 Outpatient FARHAN MCNULTY SHIWAN [facility] [id number] [facility] 2023-03-24 00:00:00 2023-03-24 00:00:00 Outpatient PINA DE JESUS [facility] [id number] [facility] 2023-03-13 00:00:00 2023-03-13 00:00:00 Aurelio Gan [facility] 1.84.114 350.1.13.10 4.2.7.2.686 [id number] [facility] 2023-03-12 00:00:00 2023-03-12 00:00:00 Yee Denise [facility] 1.84.114 350.1.13.10 4.2.7.2.686 [id number] [facility] 2023-03-11 10:30:00 2023-03-11 11:04:34 Outpatient PINA DE JESUS [facility] [id number] [facility] 2023-03-11 10:30:00 2023-03-11 11:04:34 Office Visit Pina Doty [facility] 1.840.114 350.1.13.10 4.2.7.2.686 [id number] [facility] 2023-03-09 15:30:00 2023-03-09 15:30:00 Outpatient R PINA DOTY [facility] [id number] [facility] 2023-03-02 00:00:00 2023-03-02 00:00:00 [facility] 1.840.114 350.1.13.10 4.2.7.2.686 [id number] [facility] 2023-02-18 13:20:00 2023-02-18 14:36:23 Outpatient R AURELIO MEDEL [facility] [id number] [facility] 2023-02-18 13:20:00 2023-02-18 14:36:23 Office Visit Aurelio Medel Muhammad [facility] .840.114 350.1.13.10 4.2.7.2.686 [id number] [facility] 2023-02-16 08:30:00 2023-02-16 08:45:00 Instrument Assembly Supervisor Visit Lab, Gurwinder - Aryan Mancini [facility] 1.840.114 350.1.13.10 4.2.7.2.686 [id number] [facility] 2023-02-16 08:30:00 2023-02-16 08:30:00 Outpatient R ARYAN PRICE [facility] [id number] [facility] 2023-02-16 00:00:00 2023-02-16 00:00:00 Telephone Aryan Price [facility] 1.0.114 350.1.13.10 4.2.7.2.686 [id number] [facility] 2023-02-13 09:00:00 2023-02-13 09:15:00 Office Visit Anel Golden [facility] 1.2840.114 350.1.13.10 4.2.7.2.686 [id number] [facility] 2023-02-13 09:00:00 2023-02-13 09:00:00 Outpatient R ANEL GOLDEN [facility] [id number] [facility] 2023-02-13 08:00:00 2023-02-13 08:07:08 Instrument Assembly Supervisor Visit Lab, Jada Ryan [facility] 1.840.114 350.1.13.10 4.2.7.2.686 [id number] [facility] 2023-02-13 00:00:00 2023-02-13 00:00:00 Patient Secure Msg [facility] 1.84.114 350.1.13.10 4.2.7.2.686 [id number] [facility] 2023-02-12 00:00:00 2023-02-12 00:00:00 Patient Secure Msg Farhan Liang [facility]ILD[facility] 1..840.114 350.1.13.10 4.2.7.2.686 [id number] [facility] 2023-02-09 11:00:07 2023-02-09 23:59:00 Outpatient R FARHAN LIANG SHIGAYash [facility] [id number] [facility] 2023-02-09 11:00:07 2023-02-09 23:59:00 Hospital Encounter Farhan Liang [facility] 1.2840.114 350.1.13.10 4.2.7.2.686 [id number] [facility] 2023-02-08 00:00:00 2023-02-08 00:00:00 Refill Lul Garcia [facility] 1.2840.114 350.1.13.10 4.2.7.2.686 [id number] [facility] 2023-02-03 00:00:00 2023-02-03 00:00:00 Pre Visit Outreach Amarilis Gallagher [facility] 1..114 350.1.13.10 4.2.7.2.686 [id number] [facility] 2023-01-28 00:00:00 2023-01-28 00:00:00 RefGwen Encinas do [facility]TY [facility] 1..114 350.1.13.10 4.2.7.2.686 [id number] [facility] 2023-01-27 16:08:30 2023-01-27 23:59:00 Outpatient R JADA BILL [facility] [id number] [facility] 2023-01-27 16:00:00 2023-01-27 16:32:55 Instrument Assembly Supervisor Visit Lab, Jada Ryan [facility] 1.114 350.1.13.10 4.2.7.2.686 [id number] [facility] 2023-01-27 15:30:00 2023-01-27 16:06:39 Office Visit Jada Bill [facility] 1..114 350.1.13.10 4.2.7.2.686 [id number] [facility] 2023-01-26 16:15:00 2023-01-26 17:19:21 Outpatient R AMITA AYANNA [facility] [id number] [facility] 2023-01-26 16:15:00 2023-01-26 17:19:21 Office Visit Ayanna Levi [facility] 1.114 350.1.13.10 4.2.7.2.686 [id number] [facility] 2023-01-26 00:00:00 2023-01-26 00:00:00 Orders Only Doctor Unassigned, [place] [facility] 1.114 350.1.13.10 4.2.7.2.686 [id number] [facility] 2023-01-23 00:00:00 2023-01-23 00:00:00 Patient Secure Msg Landy Jada [facility] 1.114 350.1.13.10 4.2.7.2.686 [id number] [id number] [facility] 2023-01-19 15:30:00 2023-01-19 15:30:00 Outpatient R JADA BILL [facility] [id number] [facility] 2023-01-08 00:00:00 2023-01-08 00:00:00 Refill Landy Jada [facility] 1.114 350.1.13.10 4.2.7.2.686 [id number] [facility] 2023-01-02 09:00:00 2023-01-02 09:30:00 Office Visit Anel Golden [facility] 1.114 350.1.13.10 4.2.7.2.686 [id number] [facility] 2023-01-02 09:00:00 2023-01-02 09:00:00 Outpatient ANEL CHAO [facility] [id number] [facility] 2022-12-29 08:00:00 2022-12-29 09:00:46 Instrument Assembly Supervisor Visit Lab, Niels Lazo [facility] 1.840.114 350.1.13.10 4.2.7.2.686 [id number] [facility] 2022-12-29 08:00:00 2022-12-29 08:00:00 Outpatient NIELS VELARDE [facility] [id number] [facility] 2022-12-29 00:00:00 2022-12-29 00:00:00 Orders Only Doctor Unassigned, [place] [facility] 1.84.114 350.1.13.10 4.2.7.2.686 [id number] [facility] 2022-11-21 09:00:00 2022-11-21 09:00:00 Outpatient R [facility] [id number] [facility] 2022-11-10 00:00:00 2022-11-10 00:00:00 Patient Secure Jada Kim [facility] MEDICAL OFFICE BUILDING 1.840.114 350.1.13.10 4.2.7.2.686 [id number] [facility] 2022-11-08 00:00:00 2022-11-08 00:00:00 RefDodie Sierra [facility] MEDICAL OFFICE BUILD[facility] 1.840.114 350.1.13.10 4.2.7.2.686 [id number] [facility] 2022-11-07 00:00:00 2022-11-07 00:00:00 Refill Dodie Hoang [facility] MEDICAL OFFICE BUILDING 1.2.840.114 350.1.13.10 4.2.7.2.686 [id number] [facility] 2022-11-07 00:00:00 2022-11-07 00:00:00 Refill Landy Jada [facility] MEDICAL OFFICE BUILD[facility] 1.2.840.114 350.1.13.10 4.2.7.2.686 [id number] [facility] 2022-10-20 00:00:00 2022-10-20 00:00:00 Telephone Farhan Liang [facility] BUILDING 1.2.840.114 350.1.13.10 4.2.7.2.686 [id number] [facility] 2022-10-15 00:00:00 2022-10-15 00:00:00 Case Management Farhan Liang [facility] BUILDING 1.2.840.114 350.1.13.10 4.2.7.2.686 [id number] [facility] 2022-10-14 13:00:00 2022-10-14 14:00:00 Instrument Assembly Supervisor Visit Testing, [facility] Pulmonary Function [facility] 1.2.840.114 350.1.13.10 4.2.7.2.686 [id number] [facility] 2022-10-14 13:00:00 2022-10-14 13:00:00 Outpatient R FARHAN LIANG SHIWAN [facility] [id number] [facility] 2022-10-14 00:00:00 2022-10-14 00:00:00 Orders Only Farhan Liang [facility] 1.2.840.114 350.1.13.10 4.2.7.2.686 [id number] [facility] 2022-09-19 08:45:00 2022-09-19 08:45:00 Outpatient R AYANNA LEVI [facility] [id number] [facility] 2022-09-16 09:30:00 2022-09-16 10:00:28 Outpatient R FARHAN LIANG SHIGAYash [facility] [id number] [facility] 2022-09-16 09:30:00 2022-09-16 10:00:28 [facility] 1..840.114 350.1.13.10 4.2.7.2.686 [id number] [facility] 2022-09-04 00:00:00 2022-09-04 00:00:00 Refill Aryan Price [facility] MULTISPEC IALTY [facility] 1..840.114 350.1.13.10 4.2.7.2.686 [id number] [facility] 2022-08-26 00:00:00 2022-08-26 00:00:00 Patient Secure Msg Bill Jada [facility] 1..840.114 350.1.13.10 4.2.7.2.686 [id number] [facility] 2022-08-21 14:40:00 2022-08-21 14:40:00 Outpatient R ARYAN PRICE [facility] [id number] [facility] 2022-08-21 14:40:00 2022-08-21 14:40:00 Outpatient R ARYAN PRICE [facility] [id number] [facility] 2022-08-20 13:20:00 2022-08-20 14:16:37 Outpatient R ARYAN PRICE [facility] [id number] [facility] 2022-08-20 13:20:00 2022-08-20 14:16:37 Office Visit Niels Mcnally Aryan Price [facility] AND [facility] 1..840.114 350.1.13.10 4.2.7.2.686 [id number] [facility] 2022-08-20 13:20:00 2022-08-20 13:20:00 Outpatient R ARYAN PRICE [facility] [id number] [facility] 2022-08-18 09:00:00 2022-08-18 09:15:00 Instrument Assembly Supervisor Visit Lab, Gwen Weiss do [facility] MEDICAL OFFICE BUILDING 1.2.840.114 350.1.13.10 4.2.7.2.686 [id number] [facility] 2022-08-18 09:00:00 2022-08-18 09:00:00 Outpatient R JANESSA-GWEN FERNANDES DO [facility] [id number] [facility] 2022-08-18 09:00:00 2022-08-18 09:00:00 Outpatient R KTILLA-CRU GWEN RUSH [facility] [id number] [facility] 2022-08-04 00:00:00 2022-08-04 00:00:00 Refill Dodie Hoang [facility] MEDICAL OFFICE BUILDING 1.2.840.114 350.1.13.10 4.2.7.2.686 [id number] [facility] 2022-07-31 00:00:00 2022-07-31 00:00:00 [facility]ill [facility] 1.840.114 350.1.13.10 4.2.7.2.686 [id number] [facility] 2022-07-22 09:00:00 2022-07-22 09:16:47 Instrument Assembly Supervisor Visit Lab, Gurwidner - Dereck Bill [facility] R[facility] 1.840.114 350.1.13.10 4.2.7.2.686 [id number] [facility] 2022-07-22 09:00:00 2022-07-22 09:00:00 Outpatient JADA ALANIZ [facility] [id number] [facility] 2022-07-18 15:30:00 2022-07-18 15:53:41 Outpatient JADA ALANIZ [facility] [id number] [facility] 2022-07-18 15:30:00 2022-07-18 15:53:41 [facility] 1..840.114 350.1.13.10 4.2.7.2.686 [id number] [facility] 2022-07-15 15:30:00 2022-07-15 15:30:00 Outpatient JADA ALANIZ [facility] [id number] [facility] 2022-07-11 10:00:00 2022-07-11 10:15:00 Nurse Visit 1, Adc Infusion Nurse Justin Nava [facility] 1.840.114 350.1.13.10 4.2.7.2.686 [id number] [facility] 2022-07-11 10:00:00 2022-07-11 10:00:00 Outpatient JUSTIN ZELAYA [facility] [id number] [facility] 2022-07-11 10:00:00 2022-07-11 10:00:00 Outpatient R JUSTIN NAVA [facility] [id number] [facility] 2022-07-10 00:00:00 2022-07-10 00:00:00 Patient Secure Msg Ynes Tyler [facility] 1..840.114 350.1.13.10 4.2.7.2.686 [id number] [facility] 2022-07-09 15:30:00 2022-07-09 15:30:00 Outpatient R JADA BILL [facility] [id number] [facility] 2022-07-09 00:00:00 2022-07-09 00:00:00 Patient Secure Msg Jada Bill [facility] 1..840.114 350.1.13.10 4.2.7.2.686 [id number] [facility] 2022-07-06 00:00:00 2022-07-06 00:00:00 Refill [facility] 1.840.114 350.1.13.10 4.2.7.2.686 [id number] [facility] 2022-07-04 00:00:00 2022-07-04 00:00:00 Telephone Justin Nava [facility] 1..840.114 350.1.13.10 4.2.7.2.686 [id number] [facility] 2022-06-30 15:30:00 2022-06-30 15:30:00 Outpatient R JADA BILL [facility] [id number] [facility] 2022-06-25 00:00:00 2022-06-25 00:00:00 Refill Aryan Price [facility] MULT[facility]PEC [facility] AND [facility] 1.114 350.1.13.10 4.2.7.2.686 [id number] [facility] 2022-06-25 00:00:00 2022-06-25 00:00:00 Refill Gwen Laughlin do [facility] MEDICAL OFFICE BUILDING 1.84.114 350.1.13.10 4.2.7.2.686 [id number] [facility] 2022-06-23 00:00:00 2022-06-23 00:00:00 Patient Secure g Justin [facility] 1.84.114 350.1.13.10 4.2.7.2.686 [id number] [facility] 2022-06-22 00:00:00 2022-06-22 00:00:00 Patient Secure Brandy Justin [facility] MEDICAL OFFICE BUILDING 1.84.114 350.1.13.10 4.2.7.2.686 [id number] [facility] 2022-06-18 13:09:09 2022-06-18 23:59:00 Outpatient R JUSTIN NAVA [facility] [id number] [facility] 2022-06-18 13:09:09 2022-06-18 23:59:00 Hospital Encounter Justin Nava [facility] 1.84.114 350.1.13.10 4.2.7.2.686 [id number] [facility] 2022-06-12 10:56:01 2022-06-12 23:59:00 Outpatient R JUSTIN NAVA [facility] [id number] [facility] 2022-06-12 10:56:01 2022-06-12 23:59:00 Hospital Encounter Justin Nava [facility] 1.840.114 350.1.13.10 4.2.7.2.686 [id number] [facility] 2022-06-11 00:00:00 2022-06-11 00:00:00 Outpatient R JUSTIN NAVA [facility] [id number] [facility] 2022-06-09 00:00:00 2022-06-09 00:00:00 Patient Secure Msg Justin Nava [facility] AND [facility] 1.840.114 350.1.13.10 4.2.7.2.686 [id number] [facility] 2022-06-06 00:00:00 2022-06-06 00:00:00 Outpatient R JUSTIN NAVA [facility] [id number] [facility] 2022-06-04 10:30:00 2022-06-04 10:45:00 Instrument Assembly Supervisor Visit Lab, Gurwinder Bill [facility] MEDICAL OFFICE BUILDING 1..840.114 350.1.13.10 4.2.7.2.686 [id number] [facility] 2022-06-04 10:30:00 2022-06-04 10:30:00 Outpatient JADA ALANIZ [facility] [id number] [facility] 2022-06-04 00:00:00 2022-06-04 00:00:00 Telephone Justin Nava [facility] MED[facility] OFFICE BUILD[facility] 1..840.114 350.1.13.10 4.2.7.2.686 [id number] [facility] 2022-05-30 15:30:00 2022-05-30 16:37:20 Outpatient R JUSTIN NAVA [facility] [id number] [facility] 2022-05-30 15:30:00 2022-05-30 16:37:20 Office Visit Justin Nava [facility] MEDICAL OFFICE BUILD[facility] 1.84.114 350.1.13.10 4.2.7.2.686 [id number] [facility] 2022-05-30 15:30:00 2022-05-30 15:30:00 Outpatient R JUSTIN NAVA [facility] [id number] [facility] 2022-05-19 09:00:00 2022-05-19 09:00:00 Outpatient R GWEN LAUGHLIN DO [facility] [id number] [facility] 2022-05-19 09:00:00 2022-05-19 09:00:00 Outpatient R GWEN LAUGHLIN DO [facility] [id number] [facility] 2022-05-09 00:00:00 2022-05-09 00:00:00 Refill Niels Mcnally [facility]ULT[facility]PEC [facility] AND [facility] 1.114 350.1.13.10 4.2.7.2.686 [id number] [facility] 2022-05-07 00:00:00 2022-05-07 00:00:00 Refill Aryan Price [facility] MULT[facility]PEC [facility] AND [facility] 1.114 350.1.13.10 4.2.7.2.686 [id number] [facility] 2022-05-05 00:00:00 2022-05-05 00:00:00 Aryan Warner [facility]ULT[facility]PEC [facility] AND [facility] 1.114 350.1.13.10 4.2.7.2.686 [id number] [facility] 2022-05-05 00:00:00 2022-05-05 00:00:00 Patient Secure Ayanna Zuleta [facility] AND [facility] 1.840.114 350.1.13.10 4.2.7.2.686 [id number] [facility] 2022-04-22 00:00:00 2022-04-22 00:00:00 Abstract [facility] 1.0.114 350.1.13.10 4.2.7.2.686 [id number] [facility] 2022-04-22 00:00:00 2022-04-22 00:00:00 Refill Aryan Price [facility] IALTY [place] AND [facility] 1.0.114 350.1.13.10 4.2.7.2.686 [id number] [facility] 2022-04-16 00:00:00 2022-04-16 00:00:00 Orders Only Doctor Unassigned, [place] [facility] 1.0.114 350.1.13.10 4.2.7.2.686 [id number] [facility] 2022-04-14 00:00:00 2022-04-14 00:00:00 Refill Doctor Unassigned, [place] [facility] MEDICAL OFFICE BUILDING 1..114 350.1.13.10 4.2.7.2.686 [id number] [facility] 2022-04-14 00:00:00 2022-04-14 00:00:00 Refill [facility]aughlin [facility] 1..114 350.1.13.10 4.2.7.2.686 [id number] [facility] 2022-04-14 00:00:00 2022-04-14 00:00:00 Refill Niels Mcnally [facility] 1.84.114 350.1.13.10 4.2.7.2.686 [id number] [facility] 2022-04-14 00:00:00 2022-04-14 00:00:00 Refill [facility] 1.840.114 350.1.13.10 4.2.7.2.686 [id number] [facility] 2022-04-14 00:00:00 2022-04-14 00:00:00 Refill Aryan Price [facility]?DANK[facility]ingo [facility] MEDICAL OFFICE BUILDING 1.840.114 350.1.13.10 4.2.7.2.686 [id number] [facility] 2022-04-01 11:00:00 2022-04-01 11:00:00 Outpatient R AYANNA LEVI [facility] [id number] [facility] 2022-03-25 16:00:00 2022-03-25 16:33:45 Outpatient R JADA BILL [facility] [id number] [facility] 2022-03-25 16:00:00 2022-03-25 16:33:45 Office Visit Jada Bill [facility] MEDICAL OFFICE BUILDING 1.840.114 350.1.13.10 4.2.7.2.686 [id number] [facility] 2022-03-24 10:30:00 2022-03-24 10:30:00 Outpatient R JADA BILL [facility] [id number] [facility] 2022-03-17 10:00:00 2022-03-17 10:00:00 Outpatient R NOREEN ANDUJAR [facility] [id number] [facility] 2022-03-04 00:00:00 2022-03-04 00:00:00 Patient Secure Msg Doctor Unassigned, [place] [facility] 1.840.114 350.1.13.10 4.2.7.2.686 [id number] [facility] 2022-02-27 10:40:00 2022-02-27 12:05:33 Outpatient R ARYAN PRICE [facility] [id number] [facility] 2022-02-27 10:40:00 2022-02-27 12:05:33 Office Visit Niels Mcnally Muhammad [facility] AND [facility] 1.840.114 350.1.13.10 4.2.7.2.686 [id number] [facility] 2022-02-24 09:15:00 2022-02-24 09:30:00 Instrument Assembly Supervisor Visit Lab, Jada Ryan [facility] 1..840.114 350.1.13.10 4.2.7.2.686 [id number] [facility] 2022-02-24 09:15:00 2022-02-24 09:15:00 Outpatient R JADA BILL [facility] [id number] [facility] 2022-02-13 14:30:00 2022-02-13 15:52:33 Outpatient R DODIE HOANG [facility] [id number] [facility] 2022-02-13 14:30:00 2022-02-13 15:52:33 Office Visit Dodie Hoang [facility] 1.2.840.114 350.1.13.10 4.2.7.2.686 [id number] [facility] 2022-02-13 10:00:00 2022-02-13 10:00:00 Outpatient R ARYAN PRICE [facility] [id number] [facility] 2022-02-05 00:00:00 2022-02-05 00:00:00 Orders Only Doctor Unassigned, [place] [facility] 1.0.114 350.1.13.10 4.2.7.2.686 [id number] [facility] 2022-01-29 00:00:00 2022-01-29 00:00:00 Dodie Good [facility] OFFICE BUILDING ONE 1.84.114 350.1.13.10 4.2.7.2.686 [id number] [facility] 2022-01-28 00:00:00 2022-01-28 00:00:00 Transition of Care [facility]al [facility] 1..114 350.1.13.10 4.2.7.2.686 [id number] [facility] 2022-01-25 19:06:00 2022-01-27 15:40:00 Outpatient U SANJAY [facility] [id number] [facility] 2022-01-25 19:06:00 2022-01-27 15:40:00 Hospital Encounter Brandon Hodge Sarah Batool Cintron, Nitza [facility] 1..114 350.1.13.10 4.2.7.2.686 [id number] [facility] 2022-01-27 13:30:00 2022-01-27 13:30:00 Outpatient R PINA DOTY [facility] [id number] [facility] 2022-01-15 13:00:51 2022-01-15 23:59:00 Outpatient BRENDA LANGE [facility] [id number] [facility] 2022-01-15 13:00:51 2022-01-15 23:59:00 Hospital Encounter Brenda Le [facility] 1..840.114 350.1.13.10 4.2.7.2.686 [id number] [facility] 2022-01-15 12:40:00 2022-01-15 16:30:10 Office Visit Brenda Le [facility] 1..840.114 350.1.13.10 4.2.7.2.686 [id number] [facility] 2022-01-15 12:40:00 2022-01-15 16:30:10 Outpatient BRENDA LANGE [facility] [id number] [facility] 2022-01-15 12:40:00 2022-01-15 12:40:00 Outpatient BRENDA LANGE [facility] [id number] [facility] 2022-01-15 12:40:00 2022-01-15 12:40:00 Outpatient BRENDA LANGE [facility] [id number] [facility] 2022-01-13 10:00:00 2022-01-13 10:15:00 Office Visit Lul Garcia [facility] 1..840.114 350.1.13.10 4.2.7.2.686 [id number] [facility] 2022-01-13 10:00:00 2022-01-13 10:00:00 Outpatient LUL ESCAMILLA [facility] [id number] [facility] 2022-01-10 09:00:00 2022-01-10 09:00:00 Outpatient PINA DE JESUS [facility] [id number] [facility] 2022-01-07 09:00:00 2022-01-07 09:00:00 Outpatient R PINA DOTY [facility] [id number] [facility] 2021-12-31 10:00:00 2021-12-31 10:12:52 Outpatient DODIE MENESES [facility] [id number] [facility] 2021-12-31 10:00:00 2021-12-31 10:12:52 Nurse Visit Nurse, Dodie Orellana [facility] 1.84.114 350.1.13.10 4.2.7.2.686 [id number] [facility] 2021-12-31 00:00:00 2021-12-31 00:00:00 Niels Valentin [facility] 1.114 350.1.13.10 4.2.7.2.686 [id number] [facility] 2021-12-31 00:00:00 2021-12-31 00:00:00 RefDodie Sierra [facility] ONE 1.114 350.1.13.10 4.2.7.2.686 [id number] [facility] 2021-12-28 00:00:00 2021-12-28 00:00:00 Patient Secure Msg Doctor Unassigned, [place] [facility] 1.114 350.1.13.10 4.2.7.2.686 [id number] [facility] 2021-12-24 13:15:00 2021-12-24 13:15:00 Outpatient DODIE MENESES [facility] [id number] [facility] 2021-12-24 13:15:00 2021-12-24 13:15:00 Instrument Assembly Supervisor Visit 2, [facility] Dodie Hoang [facility] 1.2.840.114 350.1.13.10 4.2.7.2.686 [id number] [facility] 2021-12-24 11:30:00 2021-12-24 12:35:03 Office Visit Dodie Hoang [facility] 1.2.840.114 350.1.13.10 4.2.7.2.686 [id number] [facility] 2021-12-24 11:30:00 2021-12-24 12:35:03 Outpatient R DODIE HOANG [facility] [id number] [facility] 2021-12-23 00:00:00 2021-12-23 00:00:00 Telephone Pina Doty [facility] 1.2.840.114 350.1.13.10 4.2.7.2.686 [id number] [facility] 2021-12-18 08:15:00 2021-12-18 08:15:00 Outpatient R VICTOR MANUEL HOANGJACQUELINLAURA [facility] [id number] [facility] 2021-12-17 13:00:00 2021-12-17 13:15:00 Nurse Visit 1, [facility] Infusion Nurse Justin Nava [facility] [place] 1.2.840.114 350.1.13.10 4.2.7.2.686 [id number] [facility] 2021-12-17 13:00:00 2021-12-17 13:00:00 Outpatient JUSTIN ZELAYA [facility] [id number] [facility] 2021-12-17 00:00:00 2021-12-17 00:00:00 Orders Only Doctor Unassigned, [place] [facility] 1..840.114 350.1.13.10 4.2.7.2.686 [id number] [facility] 2021-12-16 11:30:00 2021-12-16 11:30:00 Outpatient R DODIE HOANG [facility] [id number] [facility] 2021-12-12 16:15:00 2021-12-12 16:15:00 Outpatient R VIKTORVICTOR MANUELLAURA [facility] [id number] [facility] 2021-12-12 09:30:00 2021-12-12 09:30:00 Outpatient R BRENDA RABAGO [facility] [id number] [facility] 2021-12-12 09:30:00 2021-12-12 09:30:00 Instrument Assembly Supervisor Visit 2, [facility] 1..840.114 350.1.13.10 4.2.7.2.686 [id number] [facility] 2021-12-05 00:00:00 2021-12-05 00:00:00 Patient Secure Pina Solares [facility] BUILDING 1..840.114 350.1.13.10 4.2.7.2.686 [id number] [facility] 2021-11-29 09:30:00 2021-11-29 09:30:00 Outpatient R DODIE HOANG [facility] [id number] [facility] 2021-11-04 00:00:00 2021-11-04 00:00:00 Telephone Dodie Hoang [facility] OFFICE BUILDING ONE 1..840.114 350.1.13.10 4.2.7.2.686 [id number] [id number] [facility] 2021-10-23 00:00:00 2021-10-23 00:00:00 Refill Qian rush, Gwen Lira [facility] 1.114 350.1.13.10 4.2.7.2.686 [id number] [facility] 2021-10-18 00:00:00 2021-10-18 00:00:00 Refill Ddoie Hoang [facility] OFFICE BUILDING ONE 1.114 350.1.13.10 4.2.7.2.686 [id number] [id number] [facility] 2021-10-14 00:00:00 2021-10-14 00:00:00 Refill Dodie Hoang M[place] [facility] RAVI?DANKMingo [facility] MEDICAL OFFICE BUILDING 1.114 350.1.13.10 4.2.7.2.686 [id number] [id number] [facility] 2021-10-10 00:00:00 2021-10-10 00:00:00 Refill Eduard Rubio [facility] 1.114 350.1.13.10 4.2.7.2.686 [id number] [id number] [facility] 2021-10-10 00:00:00 2021-10-10 00:00:00 Patient Secure Msg Viktor Victor Manueljacquelinlaura Aguila [facility] RAVI?DANKMingo [facility] MEDICAL OFFICE BUILDING 1..114 350.1.13.10 4.2.7.2.686 [id number] 044 [id number] [facility] 2021-10-03 00:00:00 2021-10-03 00:00:00 Patient Secure Msg Doctor Unassigned, [place] [facility] 1..114 350.1.13.10 4.2.7.2.686 [id number] [facility] 2021-10-02 00:00:00 2021-10-02 00:00:00 Refill Dodie Hoang [facility] OFFICE BUILDING ONE 1.0.114 350.1.13.10 4.2.7.2.686 [id number] [facility] 2021-10-01 00:00:00 2021-10-01 00:00:00 Refill Gwen Laughlin do [facility] 1.0.114 350.1.13.10 4.2.7.2.686 [id number] [facility] 2021-09-10 10:00:00 2021-09-10 10:00:00 Outpatient PINA DE JESUS [facility] [id number] [facility] 2021-09-04 00:00:00 2021-09-04 00:00:00 Refill Aryan Price [facility] 1.0.114 350.1.13.10 4.2.7.2.686 [id number] [facility] 2021-08-30 08:00:00 2021-08-30 08:00:00 Outpatient R DODIE HOANG [facility] [id number] [facility] 2021-08-30 00:00:00 2021-08-30 00:00:00 Refill Eduard uRbio [facility] 1.0.114 350.1.13.10 4.2.7.2.686 [id number] [id number] [facility] 2021-08-23 00:00:00 2021-08-23 00:00:00 Pre Visit Outreach Dodie Hoang [facility] Office Building One 1.0.114 350.1.13.10 4.2.7.2.686 [id number] [facility] 2021-08-22 14:30:00 2021-08-22 14:30:00 Outpatient R PINA DOTY [facility] [id number] [facility] 2021-08-19 10:00:00 2021-08-19 10:00:00 Outpatient R PINA DOTY [facility] [id number] [facility] 2021-08-15 09:56:04 2021-08-15 11:47:05 Office Visit Niels Mcnally Muhammad A [facility] 1.840.114 350.1.13.10 4.2.7.2.686 [id number] [facility] 2021-08-15 10:00:00 2021-08-15 10:00:00 Outpatient R ARYAN PRICE [facility] [id number] [facility] 2021-08-15 00:00:00 2021-08-15 00:00:00 Patient Secure Msg Doctor Unassigned, [place] [facility] BUILDING 1.2.840.114 350.1.13.10 4.2.7.2.686 [id number] [id number] [facility] 2021-08-12 08:33:19 2021-08-12 23:59:00 Hospital Encounter Pina Doty [facility] Building 1..840.114 350.1.13.10 4.2.7.2.686 [id number] [facility] 2021-08-12 10:17:20 2021-08-12 10:32:20 Instrument Assembly Supervisor Visit 2, Adc Lab Aryan Price [facility] Building 1..840.114 350.1.13.10 4.2.7.2.686 [id number] [facility] 2021-08-12 10:17:20 2021-08-12 10:32:20 Instrument Assembly Supervisor Visit 2, Adc Lab [facility] 1..840.114 350.1.13.10 4.2.7.2.686 [id number] [facility] 2021-08-12 09:00:00 2021-08-12 09:00:00 Outpatient PINA DE JESUS [facility] [id number] [facility] 2021-07-30 10:15:00 2021-07-30 10:15:00 Outpatient R LUL GARCIA [facility] [id number] [facility] 2021-07-24 00:00:00 2021-07-24 00:00:00 Refill Aryan Price [facility] 1.840.114 350.1.13.10 4.2.7.2.686 [id number] [facility] 2021-07-24 00:00:00 2021-07-24 00:00:00 Refill Ayran Price [facility] 1..840.114 350.1.13.10 4.2.7.2.686 [id number] [facility] 2021-07-18 09:30:00 2021-07-18 09:30:00 Outpatient R JACQUELINE IRIZARRY [facility] [id number] [facility] 2021-07-08 14:30:00 2021-07-08 15:08:47 Outpatient R PINA DOTY [facility] [id number] [facility] 2021-07-08 14:24:11 2021-07-08 15:08:47 Office Visit Pina Doty [facility] Professio nal Building 1.2.840.114 350.1.13.10 4.2.7.2.686 [id number] [facility] 2021-07-08 14:30:00 2021-07-08 14:30:00 Outpatient R PINA DOTY [facility] [id number] [facility] 2021-06-19 00:00:00 2021-06-19 00:00:00 Patient Secure Msg Doctor Unassigned, [place] [facility] 1.2840.114 350.1.13.10 4.2.7.2.686 [id number] [facility] 2021-06-13 13:47:47 2021-06-13 15:37:09 Office Visit David Vogel [facility] Building 1.2.840.114 350.1.13.10 4.2.7.2.686 [id number] [facility] 2021-06-13 12:51:30 2021-06-13 13:06:30 Nurse Visit 1, [facility] Infusion Nurse Justin Nava [facility] 1.284.114 350.1.13.10 4.2.7.2.686 [id number] [facility] 2021-06-13 13:00:00 2021-06-13 13:00:00 Outpatient JUSTIN ZELAYA [facility] [id number] [facility] 2021-06-13 00:00:00 2021-06-13 00:00:00 Orders Only Doctor Unassigned, [place] [facility] 1.2.114 350.1.13.10 4.2.7.2.686 [id number] [facility] 2021-06-12 08:53:45 2021-06-12 23:59:00 Hospital Encounter Farhan Liang [facility] 1.0.114 350.1.13.10 4.2.7.2.686 [id number] [facility] 2021-06-12 00:00:00 2021-06-12 00:00:00 Outpatient FARHAN MCNULTY SHIWAN [facility] [id number] [facility] 2021-06-12 00:00:00 2021-06-12 00:00:00 Refill Aryan Price [facility] Office Building One 1.114 350.1.13.10 4.2.7.2.686 [id number] [facility] 2021-06-10 10:40:00 2021-06-10 23:59:00 Hospital Encounter Dodie Hoang [facility] 1.114 350.1.13.10 4.2.7.2.686 [id number] [facility] 2021-06-10 00:00:00 2021-06-10 00:00:00 Outpatient R DODIE HOANG [facility] [id number] [facility] 2021-06-06 00:00:00 2021-06-06 00:00:00 Refill Gwen Laughlin do [facility] 1.114 350.1.13.10 4.2.7.2.686 [id number] [facility] 2021-06-06 00:00:00 2021-06-06 00:00:00 Refill Aryan Price [facility] 1.114 350.1.13.10 4.2.7.2.686 [id number] [facility] 2021-06-04 00:00:00 2021-06-04 00:00:00 Patient Secure Msg Doctor Unassigned, [place] [facility] 1..114 350.1.13.10 4.2.7.2.686 [id number] [facility] 2021-06-03 09:00:00 2021-06-03 23:59:00 Hospital Encounter Justin Nava [facility] 1..114 350.1.13.10 4.2.7.2.686 [id number] [facility] 2021-06-03 00:00:00 2021-06-03 00:00:00 Outpatient FARHAN MCNULTY SHIWAN [facility] [id number] [facility] 2021-05-30 09:10:18 2021-05-30 09:30:18 Instrument Assembly Supervisor Visit Lab, Adc Fam Pob Dodie Hendrickson [facility] Office Building One .114 350.1.13.10 4.2.7.2.686 [id number] [facility] 2021-05-30 08:29:55 2021-05-30 09:12:13 Office Visit Dodie Hoang [facility] Office Building One .114 350.1.13.10 4.2.7.2.686 [id number] [facility] 2021-05-30 08:30:00 2021-05-30 08:30:00 Outpatient R DODIE HOANG [facility] [id number] [facility] 2021-05-26 00:00:00 2021-05-26 00:00:00 Refill Dodie Hoang [facility] Office Building One .114 350.1.13.10 4.2.7.2.686 [id number] [facility] 2021-05-24 14:31:56 2021-05-24 15:59:05 Office Visit Justin Nava [facility] Building 1.84.114 350.1.13.10 4.2.7.2.686 [id number] [facility] 2021-05-24 14:30:00 2021-05-24 14:30:00 Outpatient R JUSTIN NAVA [facility] [id number] [facility] 2021-05-24 00:00:00 2021-05-24 00:00:00 Orders Only Doctor Unassigned, [place] [facility] 1.114 350.1.13.10 4.2.7.2.686 [id number] [facility] 2021-05-09 00:00:00 2021-05-09 00:00:00 Telephone Gwen Laughlin do [facility] 1.114 350.1.13.10 4.2.7.2.686 [id number] [facility] 2021-05-05 00:00:00 2021-05-05 00:00:00 Refill Dodie Hoang [facility] Office Building One 1..114 350.1.13.10 4.2.7.2.686 [id number] [facility] 2021-05-03 00:00:00 2021-05-03 00:00:00 Refill Aryan Price [facility] 1.114 350.1.13.10 4.2.7.2.686 [id number] [facility] 2021-05-02 00:00:00 2021-05-02 00:00:00 Patient Secure Niels Payne [facility] 1.2840.114 350.1.13.10 4.2.7.2.686 [id number] [facility] 2021-05-01 11:42:00 2021-05-01 23:59:00 Hospital Encounter Brenda Richter [facility] 1.2840.114 350.1.13.10 4.2.7.2.686 [id number] [facility] 2021-05-01 00:00:00 2021-05-01 00:00:00 Outpatient R BRENDA RICHTER [facility] ACO [id number] [facility] 2021-04-29 00:00:00 2021-04-29 00:00:00 Telephone Aryan Price [facility] 1.2840.114 350.1.13.10 4.2.7.2.686 [id number] [facility] 2021-04-24 00:00:00 2021-04-24 00:00:00 Telephone Aryan Price [facility] 1.2840.114 350.1.13.10 4.2.7.2.686 [id number] [facility] 2021-04-09 00:00:00 2021-04-09 00:00:00 Case Management Aryan Price [facility] 1.2840.114 350.1.13.10 4.2.7.2.686 [id number] [facility] 2021-04-08 00:00:00 2021-04-08 00:00:00 Telephone Gwen Laughlin do [facility] 1.2840.114 350.1.13.10 4.2.7.2.686 [id number] [facility] 2021-04-03 15:20:00 2021-04-03 23:59:00 Hospital Encounter Jose Pricehammad Mingo [facility] 1.2840.114 350.1.13.10 4.2.7.2.686 [id number] [facility] 2021-04-03 00:00:00 2021-04-03 00:00:00 Outpatient R DAVID, BAEZA [facility] ACO [id number] [facility] 2021-03-31 00:00:00 2021-03-31 00:00:00 Refill DavidAryan yang [facility] 1.2.114 350.1.13.10 4.2.7.2.686 [id number] [facility] 2021-03-07 10:40:51 2021-03-07 10:55:51 Instrument Assembly Supervisor Visit Pcp-Lab Eduard Rubio [facility] 1.2.114 350.1.13.10 4.2.7.2.686 [id number] [facility] 2021-03-07 09:47:04 2021-03-07 10:41:16 Office Visit Vicenta Skelton Robert E [facility] 1.2.114 350.1.13.10 4.2.7.2.686 [id number] [facility] 2021-03-07 10:30:00 2021-03-07 10:30:00 Outpatient R EDUARD RUIBO [facility] [id number] [facility] 2021-03-07 00:00:00 2021-03-07 00:00:00 Case Management Eduard Rubio [facility] 1.20.114 350.1.13.10 4.2.7.2.686 [id number] [facility] 2021-03-04 09:06:07 2021-03-04 09:26:07 Instrument Assembly Supervisor Visit Lab, Dodie Fatima [facility] Office Building One .114 350.1.13.10 4.2.7.2.686 [id number] [facility] 2021-03-04 09:00:00 2021-03-04 09:00:00 Outpatient R DODIE HOANG [facility] [id number] [facility] 2021-02-24 00:00:00 2021-02-24 00:00:00 RefAryan Abrams [facility] .114 350.1.13.10 4.2.7.2.686 [id number] [facility] 2021-02-21 00:00:00 2021-02-21 00:00:00 Refill Dodie Hoang [facility] Office Building One .114 350.1.13.10 4.2.7.2.686 [id number] [facility] 2021-02-14 00:00:00 2021-02-14 00:00:00 Telephone Addy Pichardo [facility] .114 350.1.13.10 4.2.7.2.686 [id number] [facility] 2021-02-11 00:00:00 2021-02-11 00:00:00 Refill Dodie Hoang [facility] Office Building One .114 350.1.13.10 4.2.7.2.686 [id number] [facility] 2021-02-09 09:45:00 2021-02-09 09:45:00 Outpatient [facility] [id number] [facility] 2021-02-09 00:00:00 2021-02-09 00:00:00 [facility] 1..114 350.1.13.10 4.2.7.2.686 [id number] [facility] 2021-02-08 00:00:00 2021-02-08 00:00:00 Refill Viktor Victor Manueljacquelinful A [facility] Office Building One 1.114 350.1.13.10 4.2.7.2.686 [id number] [facility] 2021-02-08 00:00:00 2021-02-08 00:00:00 Refill Viktor Victor Manueljacquelinful A [facility] Office Building One 1.114 350.1.13.10 4.2.7.2.686 [id number] [facility] 2021-02-05 10:30:00 2021-02-05 10:30:00 Outpatient EDUARD MENESES [facility] [id number] [facility] 2021-02-01 00:00:00 2021-02-01 00:00:00 Case Management [facility]aughlin [facility] 1.114 350.1.13.10 4.2.7.2.686 [id number] [facility] 2021-01-23 00:00:00 2021-01-23 00:00:00 Refill Viktor Victor Manueljacquelinful A [facility] One .114 350.1.13.10 4.2.7.2.686 [id number] [facility] 2021-01-23 00:00:00 2021-01-23 00:00:00 Refill Aryan Price [facility] ..114 350.1.13.10 4.2.7.2.686 [id number] [facility] 2021-01-22 15:30:00 2021-01-22 15:30:00 Outpatient Johan LOWE JONATHAN [facility] [id number] [facility] 2021-01-19 09:45:00 2021-01-19 09:45:00 Outpatient [facility] [id number] [facility] 2021-01-11 00:00:00 2021-01-11 00:00:00 Patient Secure Msg Doctor Unassigned, [place] [facility] ..114 350.1.13.10 4.2.7.2.686 [id number] [facility] 2021-01-09 15:30:00 2021-01-09 15:30:00 Outpatient JONATHAN WEATHERS [facility] [id number] [facility] 2021-01-04 00:00:00 2021-01-04 00:00:00 Outpatient FARHAN MCNULTY SHIWAN [facility] [id number] [facility] 2021-01-02 09:06:56 2021-01-02 09:26:56 Imm/Inj Visit Nurse, Dodie Fatima [facility] One .840.114 350.1.13.10 4.2.7.2.686 [id number] [facility] 2021-01-02 09:00:00 2021-01-02 09:00:00 Outpatient DODIE MENESES [facility] [id number] [facility] 2020-12-28 08:56:28 2020-12-28 09:58:18 Office Visit Amaris Farhan [facility] Building 1.2.840.114 350.1.13.10 4.2.7.2.686 [id number] [facility] 2020-12-28 09:00:00 2020-12-28 09:00:00 Out[facility] [id number] [facility] 2020-12-27 14:00:00 2020-12-27 14:00:00 Outpatient R JONATHAN LOWE [facility] [id number] [facility] 2020-12-26 11:01:11 2020-12-26 23:59:00 Hospital Encounter Brenda Le [facility] 1..840.114 350.1.13.10 4.2.7.2.686 [id number] [facility] 2020-12-26 10:54:26 2020-12-26 11:38:41 Office Visit Brenda Le [facility] 1.2.840.114 350.1.13.10 4.2.7.2.686 [id number] [facility] 2020-12-26 10:50:00 2020-12-26 10:50:00 Outpatient R BRENDA LE [facility] [id number] [facility] 2020-12-26 00:00:00 2020-12-26 00:00:00 Telephone Justin Nava [facility] Building 1.2.840.114 350.1.13.10 4.2.7.2.686 [id number] [facility] 2020-12-24 00:00:00 2020-12-24 00:00:00 Dodie Good [facility] Office Building One 1.2.840.114 350.1.13.10 4.2.7.2.686 [id number] [facility] 2020-12-24 00:00:00 2020-12-24 00:00:00 Refgricelda HoangVictor Manuelkina Aguila [facility] Office Building One .114 350.1.13.10 4.2.7.2.686 [id number] [facility] 2020-12-14 13:00:00 2020-12-14 13:00:00 Outpatient JUSTIN ZELAYA [facility] [id number] [facility] 2020-12-14 11:47:34 2020-12-14 12:02:34 Nurse Visit 1, Adc Infusion Nurse Justin Nava [facility] .114 350.1.13.10 4.2.7.2.686 [id number] [facility] 2020-12-14 11:30:00 2020-12-14 11:30:00 Outpatient JUSTIN ZELAYA [facility] [id number] [facility] 2020-12-14 00:00:00 2020-12-14 00:00:00 Orders Only Doctor Unassigned, [place] [facility] .114 350.1.13.10 4.2.7.2.686 [id number] [facility] 2020-12-07 12:00:00 2020-12-07 12:00:00 Outpatient JUSTIN ZELAYA [facility] [id number] [facility] 2020-12-07 00:00:00 2020-12-07 00:00:00 Refill ViktorVictor Manuelkina Mingo [facility] Office Building One .114 350.1.13.10 4.2.7.2.686 [id number] [facility] 2020-12-06 10:47:06 2020-12-06 11:55:08 Office Visit Eduard Rubio [facility] 1.114 350.1.13.10 4.2.7.2.686 [id number] [facility] 2020-12-06 11:00:00 2020-12-06 11:00:00 Outpatient R EDUARD RUBIO [facility] [id number] [facility] 2020-12-05 09:30:00 2020-12-05 09:30:00 Outpatient BRENDA LANGE [facility] [id number] [facility] 2020-12-05 00:00:00 2020-12-05 00:00:00 Case Management Dodie Hoang [facility] Office Building One .114 350.1.13.10 4.2.7.2.686 [id number] [facility] 2020-12-03 15:00:00 2020-12-03 15:00:00 Outpatient DAVID BROWN [facility] [id number] [facility] 2020-11-30 10:31:16 2020-11-30 10:51:16 Instrument Assembly Supervisor Visit Lab, Adc Fam Pob I Dodie Hoang [facility] Office Building One .114 350.1.13.10 4.2.7.2.686 [id number] [facility] 2020-11-30 09:22:15 2020-11-30 10:38:40 Office Visit Dodie Hoang [facility] Office Building One .114 350.1.13.10 4.2.7.2.686 [id number] [facility] 2020-11-30 09:30:00 2020-11-30 09:30:00 Outpatient DODIE MENESES [facility] [id number] [facility] 2020-11-30 00:00:00 2020-11-30 00:00:00 Telephone Gwen Laughlin do [facility] 1.840.114 350.1.13.10 4.2.7.2.686 [id number] [facility] 2020-11-21 00:00:00 2020-11-21 00:00:00 Lul Swann [facility] 1.0.114 350.1.13.10 4.2.7.2.686 [id number] [facility] 2020-11-20 10:30:00 2020-11-20 10:30:00 Outpatient JUSTIN ZELAYA [facility] [id number] [facility] 2020-11-14 11:00:00 2020-11-14 11:00:00 Outpatient LISETH LEY [facility] [id number] [facility] 2020-11-14 00:00:00 2020-11-14 00:00:00 Case Management Eduard Rubio [facility] 1.840.114 350.1.13.10 4.2.7.2.686 [id number] [facility] 2020-11-14 00:00:00 2020-11-14 00:00:00 Orders Only Doctor Unassigned, [place] [facility] 1.0.114 350.1.13.10 4.2.7.2.686 [id number] [facility] 2020-11-13 11:15:00 2020-11-13 11:15:00 Outpatient DODIE MENESES [facility] [id number] [facility] 2020-11-12 00:00:00 2020-11-12 00:00:00 [facility] 1.2840.114 350.1.13.10 4.2.7.2.686 [id number] [facility] 2020-11-09 15:30:00 2020-11-09 15:30:00 Outpatient R BRANDY JUSTIN [facility] [id number] [facility] 2020-11-08 14:00:00 2020-11-08 14:00:00 Outpatient R FARHAN LIANG SHIGAYash [facility] [id number] [facility] 2020-11-08 00:00:00 2020-11-08 00:00:00 Case Management Joanne Eduard Scottie [facility] 1.2.840.114 350.1.13.10 4.2.7.2.686 [id number] [facility] 2020-11-08 00:00:00 2020-11-08 00:00:00 Case Management Joanne Eduard Rubin [facility] 1.2.840.114 350.1.13.10 4.2.7.2.686 [id number] [id number] [facility] 2020-11-06 00:00:00 2020-11-06 00:00:00 Dodie Good [facility] Office Building One 1.2840.114 350.1.13.10 4.2.7.2.686 [id number] [facility] 2020-10-31 11:20:00 2020-10-31 11:20:00 Outpatient R BRENDA LE [facility] [id number] [facility] 2020-10-30 00:00:00 2020-10-30 00:00:00 Case Management Joanne Eduard Rubin [facility] 1.2.840.114 350.1.13.10 4.2.7.2.686 [id number] [id number] [facility] 2020-10-29 00:00:00 2020-10-29 00:00:00 Refill Dodie Hoang [facility] Office Building One 1..114 350.1.13.10 4.2.7.2.686 [id number] [facility] 2020-10-26 00:00:00 2020-10-26 00:00:00 Refill Dodie Hoang [facility] Office Building One 1..114 350.1.13.10 4.2.7.2.686 [id number] [facility] 2020-10-26 00:00:00 2020-10-26 00:00:00 Refill Dodie Hoang [facility] Office Building One 1..114 350.1.13.10 4.2.7.2.686 [id number] [facility] 2020-10-26 00:00:00 2020-10-26 00:00:00 Refill Dodie Hoang [facility] Office Building One 1..114 350.1.13.10 4.2.7.2.686 [id number] [id number] [facility] 2020-10-24 00:00:00 2020-10-24 00:00:00 Transition of Care Aviva Fu 1..114 350.1.13.10 4.2.7.2.686 [id number] [facility] 2020-10-09 09:15:00 2020-10-09 09:15:00 Outpatient AYANNA VALDEZ [facility] [id number] [facility] 2020-10-03 00:00:00 2020-10-03 00:00:00 Refill A[facility] Price [facility] 1.2.840.114 350.1.13.10 4.2.7.2.686 [id number] [facility] 2020-10-01 00:00:00 2020-10-01 00:00:00 Refill Dodie Hoang [facility] Office Building One 1.114 350.1.13.10 4.2.7.2.686 [id number] [id number] [facility] 2020-10-01 00:00:00 2020-10-01 00:00:00 Refill Dodie Hoang [facility] Office Building One .114 350.1.13.10 4.2.7.2.686 [id number] [id number] [facility] 2020-09-04 00:00:00 2020-09-04 00:00:00 Patient Secure Msg Aryan Price [facility] 1.114 350.1.13.10 4.2.7.2.686 [id number] [facility] 2020-09-04 00:00:00 2020-09-04 00:00:00 Refill Dodie Hoang [facility] Office Building One .114 350.1.13.10 4.2.7.2.686 [id number] [facility] 2020-09-03 00:00:00 2020-09-03 00:00:00 Refill Aryan Price [facility] 1.114 350.1.13.10 4.2.7.2.686 [id number] [facility] 2020-08-24 00:00:00 2020-08-24 00:00:00 Telephone Aryan Price [facility] 1.114 350.1.13.10 4.2.7.2.686 [id number] [facility] 2020-08-24 00:00:00 2020-08-24 00:00:00 Refill Dodie Hoang [facility] Office Building One 1.114 350.1.13.10 4.2.7.2.686 [id number] [id number] [facility] 2020-08-23 16:00:00 2020-08-23 16:00:00 Outpatient R AYANNA LEVI [facility] [id number] [facility] 2020-08-23 00:00:00 2020-08-23 00:00:00 RefMisha [employer] [facility] Office Building One 1.114 350.1.13.10 4.2.7.2.686 [id number] [facility] 2020-08-17 00:00:00 2020-08-17 00:00:00 [facility] One 1.114 350.1.13.10 4.2.7.2.686 [id number] [facility] 2020-08-15 11:15:00 2020-08-15 11:15:00 Outpatient R ARYAN PRICE [facility] [id number] [facility] 2020-08-15 07:55:18 2020-08-15 08:10:18 Telemedici ne Visit Aryan Price [facility] 1.114 350.1.13.10 4.2.7.2.686 [id number] [facility] 2020-08-08 11:15:00 2020-08-08 11:15:00 Outpatient R ARYAN PRICE [facility] [id number] [facility] 2020-08-03 10:30:00 2020-08-03 10:30:00 Outpatient R LYNN LEE [facility] [id number] Ethan s [facility] 2020-08-03 09:08:50 2020-08-03 09:23:50 Instrument Assembly Supervisor Visit 2, Adc Lab Niels Burk Lynn Brantley [facility] nal Building 1.840.114 350.1.13.10 4.2.7.2.686 [id number] [facility] 2020-08-03 00:00:00 2020-08-03 00:00:00 Refill Victor Manuel Hoangkina [facility] Office Building One 1.840.114 350.1.13.10 4.2.7.2.686 [id number] [facility] 2020-08-03 00:00:00 2020-08-03 00:00:00 Refill Viktor Dodie Aguila [facility] Office Building One 1.0.114 350.1.13.10 4.2.7.2.686 [id number] [facility] 2020-07-31 00:00:00 2020-07-31 00:00:00 Telephone Aryan Price [facility] 1.0.114 350.1.13.10 4.2.7.2.686 [id number] [facility] 2020-07-27 10:28:20 2020-07-27 11:59:13 Office Visit Lul Garcia [facility] 1.0.114 350.1.13.10 4.2.7.2.686 [id number] [facility] 2020-07-27 10:45:00 2020-07-27 10:45:00 Outpatient R LUL GARCIA [facility] [id number] [facility] 2020-07-27 00:00:00 2020-07-27 00:00:00 Patient Secure Lul Escudero [facility] 1.114 350.1.13.10 4.2.7.2.686 [id number] [facility] 2020-07-18 11:00:00 2020-07-18 11:00:00 Outpatient R ARYAN PRICE [facility] [id number] [facility] 2020-06-28 00:00:00 2020-06-28 00:00:00 Orders Only Doctor Unassigned, [place] [facility] 1.114 350.1.13.10 4.2.7.2.686 [id number] [facility] 2020-06-25 00:00:00 2020-06-25 00:00:00 Refill Gwen Laughlin do [facility] 1. 350.1.13.10 4.2.7.2.686 [id number] [facility] 2020-05-29 00:00:00 2020-05-29 00:00:00 Patient Secure Dodie Hoang [facility] Building 1.114 350.1.13.10 4.2.7.2.686 [id number] [facility] 2020-05-17 00:00:00 2020-05-17 00:00:00 Refill Dodie Hoang [facility] Office Building One 1.114 350.1.13.10 4.2.7.2.686 [id number] [facility] 2020-05-10 00:00:00 2020-05-10 00:00:00 Case Management Gwen Laughlin do N [facility] 1. 350.1.13.10 4.2.7.2.686 [id number] [facility] 2020-05-08 11:45:00 2020-05-08 11:45:00 Outpatient R GWEN LAUGHLIN DO [facility] [id number] [facility] 2020-05-08 00:00:00 2020-05-08 00:00:00 Refill Dodie Hoang [place] [facility] Office Building One 1.114 350.1.13.10 4.2.7.2.686 [id number] [facility] 2020-05-08 00:00:00 2020-05-08 00:00:00 [facility] 1.114 350.1.13.10 4.2.7.2.686 [id number] [facility] 2020-05-06 00:00:00 2020-05-06 00:00:00 Refill Dodie Hoang [place] [facility] Office Building One 1.114 350.1.13.10 4.2.7.2.686 [id number] [facility] 2020-05-03 09:45:00 2020-05-03 09:45:00 Outpatient NIELS VELARDE [facility] [id number] [facility] 2020-05-03 09:09:51 2020-05-03 09:24:51 Instrument Assembly Supervisor Visit 2, Adc Lab Niels Mcnally Adal [facility] Building 1.114 350.1.13.10 4.2.7.2.686 [id number] [facility] 2020-04-30 00:00:00 2020-04-30 00:00:00 Patient Secure Msg Qian do, Gwen Lira [facility] 1.2.840.114 350.1.13.10 4.2.7.2.686 [id number] [facility] 2020-04-27 11:00:00 2020-04-27 11:00:00 Outpatient R VIKTORVICTOR MANUEL WALTERKINA [facility] [id number] [facility] 2020-04-27 08:56:20 2020-04-27 09:11:20 Instrument Assembly Supervisor Visit 2, Adc Lab Dodie Hoang [facility] Building 1.2.840.114 350.1.13.10 4.2.7.2.686 [id number] [facility] 2020-04-19 07:48:06 2020-04-19 12:22:49 Telemedici ne Visit Dodie Hoang [facility] Building 1.2.840.114 350.1.13.10 4.2.7.2.686 [id number] [facility] 2020-04-19 10:15:00 2020-04-19 10:15:00 Outpatient R VIKTORVICTOR MANUEL WALTERKINA [facility] [id number] [facility] 2020-04-18 15:00:00 2020-04-18 15:00:00 Outpatient R ARYAN PRICE [facility] [id number] [facility] 2020-03-28 10:00:00 2020-03-28 10:00:00 Outpatient R [facility] [id number] [facility] 2020-03-20 15:00:00 2020-03-20 15:00:00 Outpatient R ARYAN PRICE [facility] [id number] [facility] 2020-03-20 00:00:00 2020-03-20 00:00:00 Telephone Jose Pricehammad Mingo [facility] 1.0.114 350.1.13.10 4.2.7.2.686 [id number] [facility] 2020-03-16 10:09:15 2020-03-16 10:24:15 Instrument Assembly Supervisor Visit 2, Adc Lab Iveth Art [facility] 1.840.114 350.1.13.10 4.2.7.2.686 [id number] [facility] 2020-03-16 10:15:00 2020-03-16 10:15:00 Outpatient R IVETH ART [facility] [id number] [facility] 2020-03-15 00:00:00 2020-03-15 00:00:00 Orders Only Doctor Unassigned, [place] [facility] 1.840.114 350.1.13.10 4.2.7.2.686 [id number] [facility] 2020-03-14 00:00:00 2020-03-14 00:00:00 Case Management DavidJoseBaeza Mingo [facility] 1.0.114 350.1.13.10 4.2.7.2.686 [id number] [facility] 2020-03-13 00:00:00 2020-03-13 00:00:00 Telephone DavidJoseBaeza Mingo [facility] 1.0.114 350.1.13.10 4.2.7.2.686 [id number] [facility] 2020-03-13 00:00:00 2020-03-13 00:00:00 Telephone Gwen Laughlin do [facility] 1.0.114 350.1.13.10 4.2.7.2.686 [id number] [facility] 2020-02-29 10:00:00 2020-02-29 10:00:00 Outpatient R [facility] [id number] [facility] 2020-02-25 00:00:00 2020-02-25 00:00:00 [facility] Office Building One 1..114 350.1.13.10 4.2.7.2.686 [id number] [facility] 2020-02-14 00:00:00 2020-02-14 00:00:00 Refill Aryan Price [facility] 1.114 350.1.13.10 4.2.7.2.686 [id number] [facility] 2020-02-14 00:00:00 2020-02-14 00:00:00 Letter (Out) Jerald Baig [facility] 1..114 350.1.13.10 4.2.7.2.686 [id number] [facility] 2020-02-09 00:00:00 2020-02-09 00:00:00 Refill Gwen Laughlin do [facility] 1.114 350.1.13.10 4.2.7.2.686 [id number] [facility] 2020-02-01 00:00:00 2020-02-01 00:00:00 Telephone Aryan Price [facility] 1.114 350.1.13.10 4.2.7.2.686 [id number] [facility] 2020-02-01 00:00:00 2020-02-01 00:00:00 Refill Dodie Hoang [facility] Office Building One 1..114 350.1.13.10 4.2.7.2.686 [id number] [facility] 2020-01-30 00:00:00 2020-01-30 00:00:00 Telephone Aryan Price [facility] 1..114 350.1.13.10 4.2.7.2.686 [id number] [facility] 2020-01-27 00:00:00 2020-01-27 00:00:00 Telephone Aryan Price [facility] 1..114 350.1.13.10 4.2.7.2.686 [id number] [facility] 2020-01-26 00:00:00 2020-01-26 00:00:00 Telephone [facility] 1..114 350.1.13.10 4.2.7.2.686 [id number] [facility] 2020-01-25 09:57:29 2020-01-25 10:42:30 Nurse Visit Nurse, Transplant Gwen Laughlin do [facility] 1..114 350.1.13.10 4.2.7.2.686 [id number] [facility] 2020-01-25 10:00:00 2020-01-25 10:00:00 Outpatient R GWEN LAUGHLIN DO [facility] [id number] [facility] 2020-01-19 10:05:34 2020-01-19 11:18:48 Office Visit Dodie Hoang [facility] Building One 1.114 350.1.13.10 4.2.7.2.686 [id number] [facility] 2020-01-19 10:15:00 2020-01-19 10:15:00 Outpatient R VIKTOR VICTOR MANUELKINA [facility] [id number] [facility] 2020-01-17 00:00:00 2020-01-17 00:00:00 Philip Joanne Eduard Rubin [facility] 1..114 350.1.13.10 4.2.7.2.686 [id number] [facility] 2020-01-16 10:22:05 2020-01-16 13:31:44 Office Visit Gwen Laughlin do [facility] 1.114 350.1.13.10 4.2.7.2.686 [id number] [facility] 2020-01-16 10:20:00 2020-01-16 10:20:00 Outpatient R GWEN LAUGHLIN DO [facility] [id number] [facility] 2020-01-16 00:00:00 2020-01-16 00:00:00 Case Management Gwen Laughlin do [facility] 1.114 350.1.13.10 4.2.7.2.686 [id number] [facility] 2020-01-13 15:23:38 2020-01-13 15:38:38 Office Visit Nathan Jimenez [facility] 1..114 350.1.13.10 4.2.7.2.686 [id number] [facility] 2020-01-13 09:07:42 2020-01-13 09:22:42 Instrument Assembly Supervisor Visit 2, Adc Lab Gwen Laughlin do [facility] Building 1.114 350.1.13.10 4.2.7.2.686 [id number] [facility] 2020-01-13 00:00:00 2020-01-13 00:00:00 Orders Only Doctor Unassigned, [place] [facility] 1.0.114 350.1.13.10 4.2.7.2.686 [id number] [facility] 2020-01-06 08:40:45 2020-01-06 10:50:46 Office Visit TuckerPelon [facility] BLD[facility]. 1.114 350.1.13.10 4.2.7.2.686 [id number] [facility] 2020-01-04 15:44:28 2020-01-04 16:34:51 Office Visit Tiffanie Crisostomo [facility] Office Building One 1.114 350.1.13.10 4.2.7.2.686 [id number] [facility] 2019-12-29 00:00:00 2019-12-29 00:00:00 Orders Only Doctor Unassigned, [place] [facility] 1.114 350.1.13.10 4.2.7.2.686 [id number] [facility] 2019-12-15 10:19:10 2019-12-27 23:02:02 Office Visit Niels Mcnally Muhammad A [facility] MULTISPEC [facility] C[facility] AND [facility] 1. 350.1.13.10 4.2.7.2.686 [id number] [facility] 2019-12-23 16:09:22 2019-12-23 17:00:36 Office Visit Dodie Hoang [facility] Office Building One 1.2.840.114 350.1.13.10 4.2.7.2.686 [id number] [facility] 2019-12-16 13:48:20 2019-12-16 16:52:26 Office Visit Nathan Jimenez [facility] 1.2.840.114 350.1.13.10 4.2.7.2.686 [id number] [facility] 2019-12-16 00:00:00 2019-12-16 00:00:[address] [facility] 1.2.840.114 350.1.13.10 4.2.7.2.686 [id number] [facility] 2019-12-16 00:00:00 2019-12-16 00:00:00 Orders Only Doctor Unassigned, [place] [facility] 1.2.840.114 350.1.13.10 4.2.7.2.686 [id number] [facility] 2019-12-15 13:27:34 2019-12-15 15:04:28 Office Visit Jacqueline Irizarry [facility] Summer Gomez [facility] 1.2840.114 350.1.13.10 4.2.7.2.686 [id number] [facility] 2019-12-15 11:42:29 2019-12-15 11:52:29 Instrument Assembly Supervisor Visit Vtc-Lab Niels Mcnally [facility] MULTISPEC [facility]TY [facility] 1.2.840.114 350.1.13.10 4.2.7.2.686 [id number] [facility] 2019-12-15 00:00:00 2019-12-15 00:00:00 Case Management Niels Mcnally [facility] M[facility]PEC [facility] 1.2840.114 350.1.13.10 4.2.7.2.686 [id number] [facility] 2019-12-13 00:00:00 2019-12-13 00:00:00 Dodie Good [facility] Office Building One 1..114 350.1.13.10 4.2.7.2.686 [id number] [id number] [facility] 2019-12-09 09:30:06 2019-12-09 09:45:06 Instrument Assembly Supervisor Visit Pob, Adc Lab Main Janessa-Juan do, Gwen Lira [facility] Building 1.114 350.1.13.10 4.2.7.2.686 [id number] [facility] 2019-12-09 00:00:00 2019-12-09 00:00:00 Orders Only Doctor Unassigned, [place] [facility] 1.84.114 350.1.13.10 4.2.7.2.686 [id number] [facility] 2019-12-07 00:00:00 2019-12-07 00:00:00 Telephone [facility] 1.114 350.1.13.10 4.2.7.2.686 [id number] [facility] 2019-11-18 15:33:10 2019-11-18 16:18:36 Office Visit Justin Nava [facility] Building 1.114 350.1.13.10 4.2.7.2.686 [id number] [facility] 2019-11-13 00:59:00 2019-11-14 17:08:00 Inpatient U DICK OKEEFE [facility] JEIMY [id number] [facility] 2019-10-28 10:22:54 2019-10-28 23:59:00 Outpatient BRENDA LANGE [facility] [id number] [facility] 2019-07-29 00:00:00 2019-07-29 00:00:00 Telephone Aryan Price [facility] 1..114 350.1.13.10 4.2.7.2.686 [id number] [facility] 2019-07-27 10:37:39 2019-07-27 11:59:21 Office Visit Lul Garcia [facility] 1..114 350.1.13.10 4.2.7.2.686 [id number] [facility] 2019-07-04 00:00:00 2019-07-04 00:00:00 [facility] One 1..114 350.1.13.10 4.2.7.2.686 [id number] [facility] 2019-06-29 00:00:00 2019-06-29 00:00:00 [facility]gricelda Hoang [facility] One 1..114 350.1.13.10 4.2.7.2.686 [id number] [facility] 2019-06-28 00:00:00 2019-06-28 00:00:00 Telephone Misha Hoanglaura Aguila [facility] Office Building One .114 350.1.13.10 4.2.7.2.686 [id number] [facility] 2019-06-28 00:00:00 2019-06-28 00:00:00 Telephone Aryan rPice [facility] 1.114 350.1.13.10 4.2.7.2.686 [id number] [facility] 2019-06-28 00:00:00 2019-06-28 00:00:00 Telephone Dodie Hoang [facility] Office Building One 1.2840.114 350.1.13.10 4.2.7.2.686 [id number] [facility] 2019-06-27 00:00:00 2019-06-27 00:00:00 Refill Dodie Hoang [facility] Office [facility] 1.2840.114 350.1.13.10 4.2.7.2.686 [id number] [facility] 2019-06-21 09:00:36 2019-06-21 10:00:54 Instrument Assembly Supervisor Visit Lab, Adc Fam Pob I Dodie Hoang [facility] Office [facility] 1.2840.114 350.1.13.10 4.2.7.2.686 [id number] [facility] 2019-06-21 00:00:00 2019-06-21 00:00:00 Telephone Dodie Hoang [facility] Office [facility] 1.2840.114 350.1.13.10 4.2.7.2.686 [id number] [facility] 2019-06-17 15:02:14 2019-06-17 15:51:28 Office Visit Dodie Hoang [facility] Office [facility] One 1.2840.114 350.1.13.10 4.2.7.2.686 [id number] [facility] Results Test Description Test Time Test Comments Results Result Co mments [facility] [id number] 20:12:26* Test Item Value Reference Range Interpretation Comme nts NA (test code = 1855097350) 136 mmol/L 135-145 K (test code = 7652106518) 4 mmol/L 3.5-5.0 CL (test code = 5539976867) 105 mmol/L 98-108 CO2 TOTAL (test code = 7861419482) 24 mmol/L 23-31 AGAP (test code = 5162631594) 7 2-16 BUN (test code = 8258969277) 21 mg/dL 7-23 GLUCOSE (test code = 9804995182) 125 mg/dL 70-110 H CREATININE (test code = 2160-0) 1.05 mg/dL 0.50-1.04 H CALCIUM (test code = 1185838782) 9.6 mg/dL 8.6-10.6 eGFR (test code = 45223-4) 57.6 mL/min/1.73m2 CKD-EPI eGFR (2020). Assuming creatinine has been stable day-to-day for at least three months, the eGFR indicates Category G3a (45 - 59 mL/min/1.73 m2) Lab Interpretation (test code = 16433-6) [facility]normal [facility] 20:12:26* Test Item Value Reference Range Interpretation Comme nts PHOSPHORUS (test code = 1822665553) 4.4 mg/dL 2.5-5.0 Lab Interpretation (test cod e = 70005-0) Normal [id number] 19:58:58* Test Item Value Reference Range Interpretation Comme nts WBC (test code = 6690-2) 7.06 4.30-11.10 RBC (test code = 789-8) 3.57 3.93-5.25 L HGB (test code = 718-7) 10.6 g/dL 11.6-15.0 L HCT (test code = 4544-3) 33.2 % 35.7-45.2 L MCV (test code = 787-2) 93 fL 80.6-95.5 MCH (test code = 785-6) 29.7 pg 25.9-32.8 MCHC (test code = 786-4) 31.9 g/dL 31.6-35.1 RDW-SD (test code = 25321-1) 42 fL 39.0-49.9 RDW-CV (test code = 788-0) 12.4 % 12.0-15.5 PLT (test code = 777-3) 212 166-358 MPV (test code = 12577-7) 10.1 fL 9.5-12.9 NRBC/100 WBC (test code = 4032859289) 0 0.0-10.0 NRBC x10^3 (test code = 0169798551) See_Comment [Automated messa ge] The system which generated this result transmitted reference range: 10*3/?L. The reference range was not used to interpret this result as normal/abnormal. GRAN MAT (NEUT) % (test code = 770-8) 67.5 % IMM GRAN % (test code = 8611936236) 0.7 % LYMPH % (test code = 736-9) 22.1 % MONO % (test code = 5905-5) 8.5 % EOS % (test code = 713-8) 0.8 % BASO % (test code = 706-2) 0.4 % GRAN MAT x10^3(ANC) (test code = 3401015251) 4.76 10*3/uL 1.88-7.09 IMM GRAN x10^3 (test code = 1661368828) 0.05 10*3/uL 0.00-0.06 LYMPH x10^3 (test code = 731-0) 1.56 10*3/uL 1.32-3.29 MONO x10^3 (test code = 742-7) 0.6 10*3/uL 0.33-0.92 EOS x10^3 (test code = 711-2) 0.06 10*3/uL 0.03-0.39 BASO x10^3 (test code = 704-7) 0.03 10*3/uL 0.01-0.07 Lab Interpretation (test code = 24877-9) [facility]normal [facility]/SUPPLY EZYFBJESVUVDC4419-68-61 18:59:53 Ordered by an unspecified provider.[facility]EXTERNAL BO-[id number] 00:00:00* Test Item Value Reference Range Interpretation Comme nts DD-cfDNA (External Results) (test code = 5126) 2.6 <=1.0 A Lab Interpretation (test cod e = 57656-8) Abnormal [facility] HospitalPOCT Hemoglobin A1C Glpn8242-96-52 21:24:00* Test Item Value Reference Range Interpretation Comme [facility] POCT HBA1C (test code = 4548-4) 7.6 % 4-5.6 A Lab Interpretation (test cod e = 15007-6) Abnormal [facility]EX[facility] [id number]-[id number] 00:00:00* Test Item Value Reference Range Interpretation Comme [facility] DD-cfDNA (External Results) (test code = 5126) 2.9 <=1.0 A Lab Interpretation (test cod e = 53898-7) Abnormal [facility]EXTERNAL PK-UCIMZ0664-12-09 00:00:00* Test Item Value Reference Range Interpretation Comme [facility] DD-cfDNA (External Results) (test code = 5126) 2.8 <=1.0 A Lab Interpretation (test cod e = 86439-4) Abnormal [facility] HospitalHCV ISCSRDVE8848-07-61 21:50:58* Test Item Value Reference Range Interpretation Comme [facility] HCV Ab (test code = 03235-5) Negative HCV Semi-Quantitative (test code = 58439-8) 0.06 [facility] HospitalMR LUMBAR SPINE WO [id number] 21:29:36 MR LUMBAR SPINE WO CONTRAST HISTORY: Female 69 years lumbar radiculopathy COMPARISON: Lumbar radiographs dated 09/21/2023 TECHNIQUE: Multiplanar multi weighted imaging of the lumbar spine wasobtainedwithout IV contrast FINDINGS: The vertebral bodies are normal in height and in normal alignment. Theconus terminates at the level of L1-L2. The cauda equina nerve roots areunremarkable. The background marrow signal is unremarkable. The intervertebral discheights are preserved. L1-L2: No significantspinal canal stenosis or neural foraminal narrowing L2-L3: No significant spinal canal stenosis or neural foraminal narrowing L3-L4: No significant spinal canal stenosis or neural foraminal narrowingL4-L5: Shallow central disc protrusion and facet arthropathy result in mildspinal canal stenosis without significant neural foraminal narrowing L5-S1: A left foraminal/far lateral disc protrusion andfacet arthropathyresult in no significant spinal canal stenosis and feor-of-ibwbpsmy leftneural foraminal narrowing Fatty atrophy of the right iliopsoas muscle is noted. Marked bilateral renal atrophy is incidentally notedUnSt. David's Georgetown HospitalEXTERNAL ZZ-[id number] 00:00:00* Test Item Value Reference Range Interpretation Comme [facility] DD-cfDNA (External Results) (test code = 5126) 3.4 <=1.0 A Lab Interpretation (test cod e = 03712-1) Abnormal [facility] Hemoglobin A1C Zzoy2233-88-14 21:23:00* Test Item Value Reference Range Interpretation Comme [facility] POCT HBA1C (test code = 4548-4) 8.2 % 4-6 A Lab Interpretation (test cod e = 19405-2) Abnormal [facility] HospitalXR HIPS 2 VW [id number] 05:34:08XR HIPS 2 VW RIGHT Indication: chronic r hip pain ? ?Pain Comparison: Report from 09/21/2023 hip radiograph Ordering Clinician: HOLDEN LAM Technique: Frontal, oblique and lateral views are submitted forinterpretation. Technical Quality: Adequate Findings:See below.[facility] Urinalysis W Specific Bpopied2437-52-80 23:41:00* Test Item Value Reference Range Interpretation Comme nts POCT U SP GRAV (test code = 3255) 1.010 mg/dl 1.005-1.025 POCT PH U (test code = 3254) 5 mg/dl 5-8 POCT U LEUK EST (test code = 3263) + Negative - Negative POCT U NIT (test code = 3262) Negative Negative - Negati ve POCT U PROT (test code = 3259) Trace Negative - Negative POCT U GLU (test code = 3256) 50 Negative - Negati ve POCT U KETONE (test code = 3258) Negative Negative - Negative POCT U UROBILI (test code = 3260) Negative 0.2-1 POCT U BILI (test code = 3261) Negative Negative - Negative POCT U BLD (test code = 3257) Trace Negative - Negati ve POCT U COLOR (test code = 3266) Yellow POCT U APPEAR (test code = 3267) Cloudy Lab Interpretation (test cod e = 36147-2) Abnormal [facility] HospitalXR CHEST 2 [id number] 20:17:44EXAM: XR CHEST 2 VW COMPARISON: 05/01/2023 HISTORY: shortness of breathUnSt. David's Georgetown HospitalTROPONIN [id number] 19:55:02* Test Item Value Reference Range Interpretation Comme nts TROPONIN I (test code = 6654833469) 0.005 ng/mL <=0.034 ALONDRA (test code = ALONDRA) Reference (Normal) Range (defined by the 99th percentile reference limit): <= 0.034 ng/mL Note: Cardiac troponin begins to rise 3-4 hours after the onset of ischemia. Repeat in 4-6 hours if the sample was drawn within 3-4 hours of the onset of the symptom and found normal. Diagnosis of myocardial injury is made with acute changes in cTn concentrations with at least one serial sample above the 99th percentile upper reference limit (URL), taken together with the patient's clinical presentation. Biotin has been reported to cause a negative bias, interpret results relative to patient's use of biotin. Lab Interpretation (test code = 34394-7) Normal [facility] HospitalN-TERMINAL [id number]-[id number] 19:55:02* Test Item Value Reference Range Interpretation Comme nts NT-proBNP (test code = 75192-1) 440 pg/mL <=125 ALONDRA (test code = ALONDRA) Result Indeterminate-Consid er causes of NT-proBNP elevation other than Heart failure such as acute coronary syndrome, pulmonary embolism, pulmonary hypertension, sepsis, stroke, and renal dysfunction. Lab Interpretation (test code = 44465-5) Abnormal [facility] HospitalBeta Yemxgyt-Annwwgoo7122-07-18 19:51:01* Test Item Value Reference Range Interpretation Comme nts BOH (test code = 9235309829) 0.5 mmol/L ALONDRA (test code = ALONDRA) Normal Ranges: ? ? Nonfasting ? Less than 0.1 mmol/L ? ? Overnight Fast ? ? ? Less than 0.4 mmol/L ? ? Fasting (1-2 weeks) ?6-8 mmol/L Test developed and characteristics determined by [facility] Laboratory Services. [facility] HospitalCOMP. METABOLIC PANEL (62727)2024-06-09 19:45:35* Test Item Value Reference Range Interpretation Comme nts NA (test code = 6160196023) 130 mmol/L 135-145 L K (test code = 4454883529) 4.4 mmol/L 3.5-5.0 CL (test code = 0100951015) 97 mmol/L 98-108 L CO2 TOTAL (test code = 1737621031) 25 mmol/L 23-31 AGAP (test code = 5314618850) 8 2-16 BUN (test code = 2947882547) 20 mg/dL 7-23 GLUCOSE (test code = 5099863646) 475 mg/dL 70-110 HH CREATININE (test code = 2160-0) 1.12 mg/dL 0.50-1.04 H TOTAL BILI (test code = 6669129825) 0.7 mg/dL 0.1-1.1 CALCIUM (test code = 5006223607) 8.7 mg/dL 8.6-10.6 T PROTEIN (test code = 9820384214) 6.2 g/dL 6.3-8.2 L ALBUMIN (test code = 6688511054) 3.6 g/dL 3.5-5.0 ALK PHOS (test code = 0146721091) 108 U/L 34-122 ALTv (test code = 1742-6) 11 U/L 5-35 AST(SGOT) (test code = 1581331297) 18 U/L 13-40 eGFR (test code = 36353-4) 53.7 mL/min/1.73m2 CKD-EPI eGFR (2020). Assuming creatinine has been stable day-to-day for at least three months, the eGFR indicates Category G3a (45 - 59 mL/min/1.73 m2) Lab Interpretation (test code = 47132-5) Abnormal [facility] HospitalLIPASE2024-07-18 19:43:24* Test Item Value Reference Range Interpretation Comme nts LIPASE (test code = 6422087188) 243 U/L 0-220 H Lab Interpretation (test cod e = 58319-7) Abnormal [facility] HospitalCB WITH [id number] 19:32:19* Test Item Value Reference Range Interpretation [...] 33.0 g/dL 31.6-35.1 RDW-SD (test code = 29618-7) 39.4 fL 39.0-49.9 RDW-CV (test code = 788-0) 12.3 % 12.0-15.5 PLT (test code = 777-3) 203 166-358 MPV (test code = 91355-6) 10.6 fL 9.5-12.9 NRBC/100 WBC (test code = 4738567758) 0.0 0.0-10.0 NRBC x10^3 (test code = 7226971954) See_Comment [Automated messa ge] The system which generated this result transmitted reference range: 10*3/?L. The reference range was not used to interpret this result as normal/abnormal. GRAN MAT (NEUT) % (test code = 770-8) 87.6 % IMM GRAN % (test code = 6202066613) 0.60 % LYMPH % (test code = 736-9) 6.8 % MONO % (test code = 5905-5) 4.7 % EOS % (test code = 713-8) 0.2 % BASO % (test code = 706-2) 0.1 % GRAN MAT x10^3(ANC) (test code = 2347189049) 8.60 10*3/uL 1.88-7.09 H IMM GRAN x10^3 (test code = 9923856075) 0.06 10*3/uL 0.00-0.06 LYMPH x10^3 (test code = 731-0) 0.67 10*3/uL 1.32-3.29 L MONO x10^3 (test code = 742-7) 0.46 10*3/uL 0.33-0.92 EOS x10^3 (test code = 711-2) 0.03-0.39 L BASO x10^3 (test code = 704-7) 0.01-0.07 Lab Interpretation (test code = 87455-8) Abnormal [facility] HospitalAC Panel 21 + Lactic Uwsy8328-05-23 19:29:16* Test Item Value Reference Range Interpretation Comme nts PH (test code = 8588216055) 7.39 7.32-7.42 PCO2 LUISA (test code = 2550786032) 39 41-51 L PO2 LUISA (test code = 6463390540) 31 25-40 HCO3 LUISA (test code = 5806813940) 23 24-28 L AC VBE(BEAKER) (test code = 2811662992) -1.5 mEq/L THB LUISA (test code = 4042947674) 12.2 g/dL 12.0-16.0 %O2HB LUISA (test code = 2515119286) 58.7 % 52.0-63.0 %COHB LUISA (test code = 3385099443) 0.3 % 0.0-1.5 %METHB LUISA (test code = 4552305557) 0.3 % 0.4-1.5 L VOL%O2 LUISA (test code = 6218750267) 10.1 % 6.0-12.0 NA (test code = 3104257065) 132 mmol/L 135-145 L K+ (test code = 4446524496) 4.3 mmol/L 3.5-5.0 AC CA IONZ (test code = 5334652629) 4.50 mg/dL 4.50-5.30 GLUCOSE (test code = 1308981872) 498 mg/dL 70-110 HH LACTIC ACID (test code = 5787499675) 1.47 mmol/L 0.50-2.20 Lab Interpretation (test cod e = 59487-2) Abnormal [facility] HospitalComp. Metabolic Panel (75490)2024-06-09 03:45:35* Test Item Value Reference Range Interpretation Comme nts NA (test code = 8765899984) 127 mmol/L 135-145 L K (test code = 3043450159) 4.7 mmol/L 3.5-5.0 CL (test code = 9235676159) 96 mmol/L 98-108 L CO2 TOTAL (test code = 5235710083) 25 mmol/L 23-31 AGAP (test code = 1443051564) 6 2-16 BUN (test code = 6009159016) 25 mg/dL 7-23 H GLUCOSE (test code = 3408870396) 624 mg/dL 70-110 HH CREATININE (test code = 2160-0) 1.22 mg/dL 0.50-1.04 H TOTAL BILI (test code = 4905886753) 1.1 mg/dL 0.1-1.1 CALCIUM (test code = 1944730759) 8.7 mg/dL 8.6-10.6 T PROTEIN (test code = 2549344815) 6.9 g/dL 6.3-8.2 ALBUMIN (test code = 7812396412) 3.8 g/dL 3.5-5.0 ALK PHOS (test code = 4143151516) 100 U/L 34-122 ALTv (test code = 1742-6) 13 U/L 5-35 AST(SGOT) (test code = 9576506024) 44 U/L 13-40 H eGFR (test code = 34871-0) 48.4 mL/min/1.73m2 CKD-EPI eGFR (2020). Assuming creatinine has been stable day-to-day for at least three months, the eGFR indicates Category G3a (45 - 59 mL/min/1.73 m2) Lab Interpretation (test code = 97452-4) Abnormal [facility] HospitalN-Terminal Czc-Zha2591-29-18 03:34:36* Test Item Value Reference Range Interpretation Comme nts NT-proBNP (test code = 15966-9) 382 pg/mL <=125 ALONDRA (test code = ALONDRA) Result Indeterminate-Consid er causes of NT-proBNP elevation other than Heart failure such as acute coronary syndrome, pulmonary embolism, pulmonary hypertension, sepsis, stroke, and renal dysfunction. Lab Interpretation (test code = 17163-3) Abnormal [facility] HospitalGlycosylated Hemoglobin (A1C)2024-06-09 03:31:52* Test Item Value Reference Range Interpretation Comme nts HGB A1C (test code = 4548-4) 10.4 % 4.0-5.7 H ALONDRA (test code = ALONDRA) Reference RangesNormal: <5.7%Prediabetes: 5.7 - 6.4%Diabetes: > 6.5% Lab Interpretation (test code = 98631-2) Abnormal [facility] SARS-COV-2 ANTIGEN (BINAX NOW)2024-05-27 17:05:00* Test Item Value Reference Range Interpretation Comme nts POCT SARS-COV-2 ANTIGEN (test code = 99236-0) Not Detected Not Detected, See Comment On board controls acceptable with C Line (test code = 3574) Yes Lab Interpretation (test code = 18672-7) Normal [facility] Urinalysis W Specific Fzzfgfm7407-67-95 15:54:00* Test Item Value Reference Range Interpretation [...] 3267) Lab Interpretation (test cod e = 16984-5) Abnormal [facility] HospitalEXTERNAL PF-NYIOY9558-33-10 00:00:00* Test Item Value Reference Range Interpretation Comme nts DD-cfDNA (External Results) (test code = 5126) 1.3 <=1.0 A Lab Interpretation (test cod e = 40328-7) Abnormal [facility] HospitalMagnesium Tvdab3606-28-96 20:45:45* Test Item Value Reference Range Interpretation Comme nts MAGNESIUM (test code = 3407197920) 1.6 mg/dL 1.7-2.4 L Lab Interpretation (test cod e = 70790-6) Abnormal [facility] HospitalMagnesium Iyrxw2125-72-06 20:45:45* Test Item Value Reference Range Interpretation Comme nts MAGNESIUM (test code = 8084700812) 1.6 mg/dL 1.7-2.4 L Lab Interpretation (test cod e = 49395-8) Abnormal [facility] HospitalBatristar [facility] (NA, K, CL, CO2, Glucose, BUN, Creatinine, CA)2023-06-05 20:45:25* Test Item Value Reference Range Interpretation Comme nts NA (test code = 6624043212) 138 mmol/L 135-145 K (test code = 7894007408) 3.8 mmol/L 3.5-5.0 CL (test code = 5307945487) 105 mmol/L 98-108 CO2 TOTAL (test code = 0748546302) 22 mmol/L 23-31 L AGAP (test code = 6960885751) 11 2-16 BUN (test code = 0994651865) 34 mg/dL 7-23 H GLUCOSE (test code = 2512998778) 97 mg/dL 70-110 CREATININE (test code = 2298873794) 1.17 mg/dL 0.50-1.04 H CALCIUM (test code = 1352683045) 9.7 mg/dL 8.6-10.6 eGFR (test code = 9717418452) 46.1 mL/min/1.73m2 ALONDRA (test code = ALONDRA) [...] imaging tests). Lab Interpretation (test code = 13933-5) Abnormal [facility] HospitalPhosphorus Lcpwb0091-41-76 20:45:25* Test Item Value Reference Range Interpretation Comme nts PHOSPHORUS (test code = 8985967300) 3.9 mg/dL 2.5-5.0 Lab Interpretation (test cod e = 10730-0) Normal [facility] HospitalBatrist[facility] Metabolic Panel (NA, K, CL, CO2, Glucose, BUN, Creatinine, CA)2023-06-05 20:45:25* Test Item Value Reference Range Interpretation Comme nts NA (test code = 3182766182) 138 mmol/L 135-145 K (test code = 7204579743) 3.8 mmol/L 3.5-5.0 CL (test code = 9618541775) 105 mmol/L 98-108 CO2 TOTAL (test code = 7057212706) 22 mmol/L 23-31 L AGAP (test code = 7795871861) 11 2-16 BUN (test code = 1357300468) 34 mg/dL 7-23 H GLUCOSE (test code = 5341090489) 97 mg/dL 70-110 CREATININE (test code = 1983611013) 1.17 mg/dL 0.50-1.04 H CALCIUM (test code = 0611411872) 9.7 mg/dL 8.6-10.6 eGFR (test code = 7081319136) 46.1 mL/min/1.73m2 ALONDRA (test code = ALONDRA) [...] imaging tests). Lab Interpretation (test code = 82756-8) Abnormal [facility] HospitalPhosphorus Cuorl8687-63-36 20:45:25* Test Item Value Reference Range Interpretation Comme nts PHOSPHORUS (test code = 8069453227) 3.9 mg/dL 2.5-5.0 Lab Interpretation (test cod e = 48164-3) Normal [facility] HospitalCBC with Xqljlzgjittt7056-17-70 20:09:19* Test Item Value Reference Range Interpretation Comme nts WBC (test code = 6690-2) 10.43 See_Comment [Automated [employer]] The system which generated this result transmitted reference range: 4.30 - 11.10 10*3/?L. The reference range was not used to interpret this result as normal/abnormal. RBC (test code = 789-8) 3.08 See_Comment L [Automated [employer]] The system which generated this result transmitted [...] 33.0 g/dL 31.6-35.1 RDW-SD (test code = 74463-5) 43.4 fL 39.0-49.9 RDW-CV (test code = 788-0) 12.7 % 12.0-15.5 PLT (test code = 777-3) 267 See_Comment [Automated messa ge] The system which generated this result transmitted reference range: 166 - 358 10*3/?L. The reference range was not used to interpret this result as normal/abnormal. MPV (test code = 48973-4) 9.8 fL 9.5-12.9 NRBC/100 WBC (test code = 3053674454) 0.0 See_Comment [Automated me ssage] The system which generated this result transmitted reference range: 0.0 - 10.0 /100 WBCs. The reference range was not used to interpret this result as normal/abnormal. NRBC x10^3 (test code = 0075961573) See_Comment [Automated messa ge] The system which generated this result transmitted reference range: 10*3/?L. The reference range was not used to interpret this result as normal/abnormal. GRAN MAT (NEUT) % (test code = 770-8) 74.8 % IMM GRAN % (test code = 6725659941) 1.20 % LYMPH % (test code = 736-9) 17.1 % MONO % (test code = 5905-5) 6.1 % EOS % (test code = 713-8) 0.5 % BASO % (test code = 706-2) 0.3 % GRAN MAT x10^3(ANC) (test code = 3959911071) 7.81 10*3/uL 1.88-7.09 H IMM GRAN x10^3 (test code = 2983660170) 0.12 10*3/uL 0.00-0.06 H LYMPH x10^3 (test code = 731-0) 1.78 10*3/uL 1.32-3.29 MONO x10^3 (test code = 742-7) 0.64 10*3/uL 0.33-0.92 EOS x10^3 (test code = 711-2) 0.05 10*3/uL 0.03-0.39 BASO x10^3 (test code = 704-7) 0.03 10*3/uL 0.01-0.07 Lab Interpretation (test code = 63537-3) Abnormal [facility] with Qabipxctbcpe3107-89-73 20:09:19* Test Item Value Reference Range Interpretation [...] 33.0 g/dL 31.6-35.1 RDW-SD (test code = 47766-9) 43.4 fL 39.0-49.9 RDW-CV (test code = 788-0) 12.7 % 12.0-15.5 PLT (test code = 777-3) 267 See_Comment [Automated messa ge] The system which generated this result transmitted reference range: 166 - 358 10*3/?L. The reference range was not used to interpret this result as normal/abnormal. MPV (test code = 81766-2) 9.8 fL 9.5-12.9 NRBC/100 WBC (test code = 9933101555) 0.0 See_Comment [Automated me ssage] The system which generated this result transmitted reference range: 0.0 - 10.0 /100 WBCs. The reference range was not used to interpret this result as normal/abnormal. NRBC x10^3 (test code = 5689292266) See_Comment [Automated messa ge] The system which generated this result transmitted reference range: 10*3/?L. The reference range was not used to interpret this result as normal/abnormal. GRAN MAT (NEUT) % (test code = 770-8) 74.8 % IMM GRAN % (test code = 3777127930) 1.20 % LYMPH % (test code = 736-9) 17.1 % MONO % (test code = 5905-5) 6.1 % EOS % (test code = 713-8) 0.5 % BASO % (test code = 706-2) 0.3 % GRAN MAT x10^3(ANC) (test code = 4705596656) 7.81 10*3/uL 1.88-7.09 H IMM GRAN x10^3 (test code = 2815231918) 0.12 10*3/uL 0.00-0.06 H LYMPH x10^3 (test code = 731-0) 1.78 10*3/uL 1.32-3.29 MONO x10^3 (test code = 742-7) 0.64 10*3/uL 0.33-0.92 EOS x10^3 (test code = 711-2) 0.05 10*3/uL 0.03-0.39 BASO x10^3 (test code = 704-7) 0.03 10*3/uL 0.01-0.07 Lab Interpretation (test code = 04923-2) [facility]normal [facility] HospitalEXTERNAL RU-GXTSS1649-35-14 00:00:00* Test Item Value Reference Range Interpretation Comme nts DD-cfDNA (External Results) (test code = 5126) 1.3 <=1.0 A Lab Interpretation (test cod e = 55037-4) Abnormal [facility] HospitalMagnesium Xmdze9305-24-81 21:15:45* Test Item Value Reference Range Interpretation Comme nts MAGNESIUM (test code = 3314204657) 1.7 mg/dL 1.7-2.4 Lab Interpretation (test cod e = 22829-0) Normal [facility]Bat[facility] Metabolic Panel (NA, K, CL, CO2, Glucose, BUN, Creatinine, CA)2022-12-29 21:15:30* Test Item Value Reference Range Interpretation Comme nts NA (test code = 5712662936) 138 mmol/L 135-145 K (test code = 1147600440) 4.3 mmol/L 3.5-5.0 CL (test code = 5758455807) 104 mmol/L 98-108 CO2 TOTAL (test code = 0301200194) 27 mmol/L 23-31 AGAP (test code = 4725488475) 7 2-16 BUN (test code = 4673386720) 24 mg/dL 7-23 H GLUCOSE (test code = 9071307139) 75 mg/dL 70-110 CREATININE (test code = 0141270110) 1.16 mg/dL 0.50-1.04 H CALCIUM (test code = 1826609361) 9.1 mg/dL 8.6-10.6 eGFR (test code = 6034387164) 46.7 mL/min/1.73m2 ALONDRA (test code = ALONDRA) [...] imaging tests). Lab Interpretation (test code = 60051-4) [facility]normal [facility] HospitalPhosphorus Avvpj6785-99-22 21:15:29* Test Item Value Reference Range Interpretation Comme nts PHOSPHORUS (test code = 0987926407) 4.1 mg/dL 2.5-5.0 Lab Interpretation (test cod e = 54644-6) Normal [facility] with Hqsemdfjmjri9316-12-23 19:57:13* Test Item Value Reference Range Interpretation Comme nts WBC (test code = 6690-2) 9.45 See_Comment [Automated [employer]] The system which generated this result transmitted reference range: 4.30 - 11.10 10*3/?L. The reference range was not used to interpret this result as normal/abnormal. RBC (test code = 789-8) 3.22 See_Comment L [Automated [employer]] The system which generated this result transmitted [...] 32.4 g/dL 31.6-35.1 RDW-SD (test code = 83337-2) 42.2 fL 39.0-49.9 RDW-CV (test code = 788-0) 12.2 % 12.0-15.5 PLT (test code = 777-3) 210 See_Comment [Automated messa ge] The system which generated this result transmitted reference range: 166 - 358 10*3/?L. The reference range was not used to interpret this result as normal/abnormal. MPV (test code = 90364-1) 10.3 fL 9.5-12.9 NRBC/100 WBC (test code = 8612068928) 0.0 See_Comment [Automated [employer] ss[employer]] The system which generated this result transmitted reference range: 0.0 - 10.0 /100 WBCs. The reference range was not used to interpret this result as normal/abnormal. NRBC x10^3 (test code = 4184710848) See_Comment [Automated messa ge] The system which generated this result transmitted reference range: 10*3/?L. The reference range was not used to interpret this result as normal/abnormal. GRAN MAT (NEUT) % (test code = 770-8) 70.7 % IMM GRAN % (test code = 9276068341) 0.80 % LYMPH % (test code = 736-9) 20.3 % MONO % (test code = 5905-5) 7.2 % EOS % (test code = 713-8) 0.6 % BASO % (test code = 706-2) 0.4 % GRAN MAT x10^3(ANC) (test code = 7908437751) 6.67 10*3/uL 1.88-7.09 IMM GRAN x10^3 (test code = [id number]) 0.08 10*3/uL 0.00-0.06 H LYMPH x10^3 (test code = 731-0) 1.92 10*3/uL 1.32-3.29 MONO x10^3 (test code = 742-7) 0.68 10*3/uL 0.33-0.92 EOS x10^3 (test code = 711-2) 0.06 10*3/uL 0.03-0.39 BASO x10^3 (test code = 704-7) 0.04 10*3/uL 0.01-0.07 Lab Interpretation (test code = 62461-9) [facility]2022-10-14 18:53:02* Test Item Value Reference Range Interpretation Comme nts FVC Actual (test code = 3994) 1.33 L FEV1 Actual (test code = 3993) 1.21 L FEV1/FVC Actual (test code = 3995) 91 % [facility]DIG[facility]MO[facility], [id number] 18:36:00*.*.*.*.*.*.*.*.*.*.*.*.*.*FINAL*.*.*.*.*.*.*.*.*.*.*.*.*.*.*Computer- aided detection(CAD)utilized.Comparison is made to images from 08/13/2011 (bilateral) and images from 08/05/2010 and images from08/02/2009. There is no significant interval change. Bilateral Breast Findings:The breasts are extremely dense (greater than 75% fibroglandular) which could obscure a lesion on mammography. No significant masses, calcifications or other abnormalities are seen.Extensive arterial calcifications may be due to systemic vascular disease. ?Personally interpreted by: RICHARD ALCANTARA JR /Signed/ RICHARD ALCANTARA JR [facility] Notes Date/Time Note Provider Source 2025-08-24 11:59:04 Requested Prescriptions Pending Prescriptions Disp Refills ROSUVASTATIN 5 mg tablet [Pharmacy Med Name: ROSUVASTATIN 5MG TABLETS] 90 tablet 1 Sig: TAKE 1 TABLET BY MOUTH AT BEDTIME Cardiovascular: Antilipid - HMG-CoA Reductase Inhibitors Failed - 08/24/2025 11:59 AM Failed - Total Cholesterol within 360 days CHOL Date Value Ref Range Status 02/22/2024 137 120 - 200 mg/dL Final 02/13/2014 182 120 - 200 MG/DL Final CHOLESTEROL, TOTAL-Q Date Value Ref Range Status 07/08/2016 186 125 - 200 mg/dL Final Failed - LDL within 360 days LDL CHOL Date Value Ref Range Status 02/22/2024 59 <=160 mg/dL Final 02/13/2014 104 -<160 MG/DL Final Comment: Performed at [facility] - [place] [address] Toll Free: [phone] CLIA No. [id number] Date Value Ref Range Status 07/08/2016 105 <130 mg/dL (calc) Final Comment: Desirable range <100 mg/dL for patients with CHD or diabetes and <70 mg/dL for diabetic patients with known heart disease. VLDL Date Value Ref Range Status 02/22/2024 50 5 - 60 mg/dL Final 02/13/2014 42 5 - 60 MG/DL Final Failed - HDL within 360 days HDL CHOL Date Value Ref Range Status 02/13/2014 36 (L) >45 MG/DL Final HDL CHOLESTEROL-Q Date Value Ref Range Status 07/08/2016 35 (L) > OR = 46 mg/dL Final HDL Date Value Ref Range Status 02/22/2024 28 (L) >50 mg/dL Final HDLC RATIO Date Value Ref Range Status 02/22/2024 4.9 (H) <=4.5 Final 02/13/2014 5.1 (H) -<4.5 Final Failed - Triglycerides within 360 days TRIG Date Value Ref Range Status 02/22/2024 250 (H) 30 - 170 mg/dL Final 02/13/2014 208 (H) 30 - 170 MG/DL Final TRIGLYCERIDES-Q Date Value Ref Range Status 07/08/2016 229 (H) <150 mg/dL Final Passed - Valid encounter within last 12 months Recent Visits Date Type Provider Dept 10/05/24 Office Visit Jada Bill FNP [facility] Showing recent visits within past 365 days and meeting all other requirements Future Appointments Date Type Provider Dept 10/06/25 Appointment Jada Bill FNP [facility] Showing future appointments within next 365 days and meeting all other requirements Passed - AST in normal range and within 360 days AST(SGOT) Date Value Ref Range Status 07/28/2025 20 13 - 40 U/L Final 02/15/2015 24 13 - 40 U/L Final Comment: Performed at [facility] - [address] [address] Toll Free: [phone] CLIA No. [id number] AST-Q Date Value Ref Range Status 04/14/2018 18 10 - 35 U/L Final Passed - ALT in normal range and within 360 days ALT(SGPT) Date Value Ref Range Status 06/21/2019 16 9 - 51 U/L Final 02/15/2015 34 9 - 51 U/L Final ALT-Q Date Value Ref Range Status 04/14/2018 14 6 - 29 U/L Final ALTv Date Value Ref Range Status 07/28/2025 14 5 - 35 U/L Final Ivana Dale RN [facility] 2025-08-18 11:39:14 Outpatient Medication Detail Disp Refills Start End ELAINE WESTAB PLUS 27 mg iron- 1 mg tablet 90 tablet 0 05/18/2025 -- No Sig: TAKE 1 TABLET BY MOUTH EVERY MORNING Sent to pharmacy as: WesTab Plus 27 mg iron-1 mg tablet (PNV,calcium 87-alal-pxcuf acid) Class: eRX Route: Oral Order: [id number] Date/Time Signed: 05/18/2025 10:58 E-Prescribing Status: Receipt confirmed by pharmacy (05/18/2025 10:58 AM CDT) Recent Visits Date Type Provider Dept 10/05/24 Office Visit Jada Bill FNP [facility] 07/04/24 Office Visit Kathleen Marie FNP [facility] 06/08/24 Office Visit Jada Bill FNP [facility] 05/27/24 Office Visit Jada Bill FNP [facility] Showing recent visits within past 540 days with a meds authorizing provider and meeting all other requirements Future Appointments Date Type Provider Dept 10/06/25 Appointment Jada Bill FNP [facility] Showing future appointments within next 150 days with a meds authorizing provider and meeting all other requirements Ivana Dale RN [facility] 2025-08-11 14:46:30 Please review and sign if appropriate. ONETOUCH DELICA PLUS LANCET 33 gauge Misc 100 Each 3 06/14/2024 -- No Sig: CHECK FASTING BLOOD SUGAR DAILY Sent to pharmacy as: MerrillTouch Delica Plus Lancet 33 gauge (lancets) Class: eRX Notes to Pharmacy: ZERO refills remain on this prescription. Your patient is requesting advance approval of refills for this medication to PREVENT ANY MISSED DOSES Order: [id number] Date/Time Signed: 06/14/2024 13:15 E-Prescribing Status: Receipt confirmed by pharmacy (06/14/2024 1:16 PM CDT) Renewals Renewal provider: Jada Bill FNP Recent Visits Date Type Provider Dept 10/05/24 Office Visit Jada Bill FNP [facility] 07/04/24 Office Visit Kathleen Marie FNP [facility] 06/08/24 Office Visit Jaad Bill FNP [facility] 05/27/24 Office Visit Jada Bill FNP [facility] 02/22/24 Office Visit Jada Bill FNP [facility] Showing recent visits within past 540 days with a meds authorizing provider and meeting all other requirements Future Appointments Date Type Provider Dept 10/06/25 Appointment Jada Bill FNP [facility] Showing future appointments within next 150 days with a meds authorizing provider and meeting all other requirements [facility] 2025-07-29 17:00:39 Please review and advise. VIJI 10/05/24 NOV 10/06/25 Ella Rod LVN [facility] 2025-07-28 10:30:00 Images from the original note were not included. Venipuncture collection performed by clean technique on the right anticubitus. Total of 1 attempts were made. Slight pressure and a bandage/dressing were applied to the site(s). The patient experienced no complications. The following specimens were processed according to instructions and sent to [facility] laboratories per lab order on 07/28: LT BLUE SST RED LAV PPT DK GREEN (LiHep) DK GREEN (SodH) FAUSTIN DK BLUE (K2) DK BLUE (S) ACD Blood Culture NIPT/NTD [facility] 2025-07-13 09:14:33 Pharmacist from [facility] is calling requesting CMP labs for patient to receive Prolia injections per order from Provider at [facility] with endo. CMP has been placed. [facility] 2025-07-07 08:24:44 Images from the original note were not included. Notes: 04/08/25 Last Refilled: [facility][id number] [place] [address] [address] [facility] OF [address] Recent Visits Date Type Provider Dept 10/05/24 Office Visit Jada Bill FNP [facility] 07/04/24 Office Visit Kathleen Marie FNP [facility] 06/08/24 Office Visit Jada Bill FNP [facility] 05/27/24 Office Visit Jada Bill FNP [facility] 02/22/24 Office Visit Jada Bill FNP [facility] Showing recent visits within past 540 days with a meds authorizing provider and meeting all other requirements Future Appointments Date Type Provider Dept 10/06/25 Appointment Jada Bill FNP [facility] Showing future appointments within next 150 days with a meds authorizing provider and meeting all other requirements Name from pharmacy: OMEPRAZOLE 20MG CAPSULES Will file in chart as: OMEPRAZOLE 20 mg capsule Sig: TAKE 1 CAPSULE BY MOUTH DAILY Disp: 90 capsule Refills: 0 (Pharmacy requested: Not specified) Start: 07/07/2025 Class: eRX For: Gastroesophageal reflux disease without esophagitis Last ordered: 3 months ago (04/08/2025) by JENNIFER Luna Last refill: 04/08/2025 Rx #: [id number]|0|1 Gastroenterology: Antiulcer - Proton Pump Inhibitors Qamhnq6007/07/2025 03:40 AM Protocol Details Valid encounter within last 12 months To be filled at: [facility][id number] - [place], [place] - [address] AT [address] OF [address] Ria Ocampo MA [facility] 2025-07-06 15:59:24 Sent myfortic as brand name medically necessary [facility] 2025-06-16 09:45:00 Images from the original note were not included. Venipuncture collection performed by clean technique on the left anticubitus. Total of 1 attempts were made. Slight pressure and a bandage/dressing were applied to the site(s). The patient experienced no complications. The following specimens were processed according to instructions and sent to [facility] laboratories per lab order on today: LT BLUE SST 1 RED 1 LAV 1 PPT 2 DK GREEN (LiHep) DK GREEN (SodH) FAUSTIN DK BLUE (K2) DK BLUE (S) ACD Blood Culture NIPT/NTD T [facility] 2025-06-16 09:45:00 Images from the original note were not included. Patient has been identified by name and was provided with cup, antiseptic towelette, and clean catch instructions. 2 urine specimen(s) sent. Unpreserved 1 Urine Culture Aptima tube Other urine Pr/cr ratio T [facility] 2025-06-13 14:39:32 Images from the original note were not included. Notes: 03/06/25 Last Refilled: [facility] #[id number] - [place] [address] AT [facility] OF & Recent Visits Date Type Provider Dept 10/05/24 Office Visit ZohrehJeane aguilaie, JENNIFER [facility] 07/04/24 Office Visit Kathleen Marie FREIGHT BOOKER [facility] 06/08/24 Office Visit Landy JadaMONTSE ferminP [facility] 05/27/24 Office Visit ZohrehJada aguila FREIGHT BOOKER [facility] 02/22/24 Office Visit Jada BillMONTSEP [facility] Showing recent visits within past 540 days with a meds authorizing provider and meeting all other requirements Future Appointments Date Type Provider Dept 10/06/25 Appointment LandyJeaneJENNIFER fermin [facility] Showing future appointments within next 150 days with a meds authorizing provider and meeting all other requirements Name from pharmacy: MONTELUKAST 10MG TABLETS Will file in chart as: MONTELUKAST 10 mg tablet Sig: TAKE 1 TABLET BY MOUTH EVERY EVENING Disp: 90 tablet Refills: 0 (Pharmacy requested: Not specified) Start: 06/12/2025 Class: eRX For: Persistent cough Last ordered: 3 months ago (03/06/2025) by JENNIFER Luna Last refill: 03/06/2025 Rx #: [id number]|1|0|1 Allergy Rmxgky6306/12/2025 01:16 PM Protocol Details Valid encounter within last 12 months To be filled at: [facility] #[id number] [place] [address] AT [facility] OF [address] Ria Ocampo MA [facility] 2025-06-06 14:40:24 Images from the original note were not included. Patient's daughter notified of results. They verbalized understanding of results/recommendations via teach back. No further questions or concerns at this time. Farhan Liang, DO P Pulmonary Nurse Can we please let patient know CT scan shows stability of lung nodules. No need for any further follow up. Thanks. Enedelia Reinoso RN [facility] 2025-05-26 07:55:59 Images from the original note were not included. Please schedule pt for office visit. Notes: 09/26/24 Last Refilled: [facility] #[id number] - [place] [address] [address] [facility] OF [address] HGB A1C (%) Date Value 06/08/2024 10.4 (H) 02/22/2024 7.3 (H) 09/16/2023 7.5 (H) 01/27/2023 6.6 (H) 07/22/2022 7.0 (H) 01/20/2013 5.4 11/04/2012 10.4 (H) 10/07/2012 11.2 (H) 08/31/2007 5.4 05/04/2007 5.7 HEMOGLOBIN A1c-Q (% of total Hgb) Date Value 07/08/2016 6.1 (H) Recent Visits Date Type Provider Dept 10/05/24 Office Visit Jada Bill FNP [facility] 07/04/24 Office Visit Kathleen Marie FREIGHT BOOKER [facility] 06/08/24 Office Visit Jada Bill FNP [facility] 05/27/24 Office Visit Jada Bill FNP [facility] 02/22/24 Office Visit Jada Bill FNP [facility] Showing recent visits within past 540 days with a meds authorizing provider and meeting all other requirements Future Appointments Date Type Provider Dept 10/06/25 Appointment Jada Bill FNP [facility] Showing future appointments within next 150 days with a meds authorizing provider and meeting all other requirements glipiZIDE 10 mg tablet Sig: N/A Disp: 180 tablet Refills: 1 Start: 05/25/2025 Class: eRX For: Controlled type 2 diabetes mellitus with chronic kidney disease, without long-term current use of insulin, unspecified CKD stage Last ordered: 8 months ago (09/26/2024) by JENNIFER Luna Endocrinology: Diabetes - Sulfonylureas Aooxvf4405/25/2025 08:52 PM Protocol Details Cr in normal range and within 360 days Valid encounter within last 12 months HBA1C within 180 days To be filled at: [facility] #[id number] - [place], [place] - [facility] [place] [address] AT [facility] OF [address] Ria Ocampo MA [facility] 2025-05-24 07:31:19 VIJI 09/05/24 NOV 09/11/25 Suha Meneses RN [facility] 2025-05-23 09:07:54 DME orders placed via parachute with [employer]. For further status updates please contact [employer] at [phone]. Pt contacted and informed of orders and contact info was given for eROI and pt had no further questions or concerns. [facility] 2025-05-23 08:19:04 Nicole we have share Mr Garcia as a pt. Im reaching out regarding dental clearance for him. His dentist is wanting to do x ray , Ct, tooth extraction , local anesthesia with epi and scaling and root planning. They ask if he needs prophylaxis antibiotics in which I see he will with the hx of kidney transplant. Are you ok with the rest such as epi use. Up to date state using 1st gen Cephalosporin, Keflex of with you? Thanks for your time. Jada Bill [employer] [facility] 2025-05-19 12:50:58 Addended by: GINA URBAN LVN on: 05/19/2025 12:50 PM Modules accepted: Orders T [facility] 2025-05-19 10:47:45 Please review and sign if appropriate. VIJI:10/05/24 [facility] 2025-05-19 08:31:31 Good morning, patient is scheduled with pulmonary this Tuesday 05/22 and is needing a referral for this appointment. Please advise, thank you. Christina Talley [facility] 2025-05-18 18:16:16 Done T [facility] 2025-05-18 18:11:23 Please review, complete, and sign if appropriate. [facility] 2025-05-18 10:10:12 VIJI 09/05/24 NOV 09/11/25 Suha Meneses RN [facility] 2025-05-17 16:00:[address] referral for pts upcoming appt with cardiology. Sabina Head [facility] 2025-05-11 10:06:12 Access Center: [employer] Open Encounter Maintenance This is being sent to you as part of [employer] Chart Maintenance. The encounter has been open longer than 72 hours and has no documentation attached. Please review and close encounter. Elissa Landa RN [facility] 2025-04-24 22:58:57 Requested Prescriptions Pending Prescriptions Disp Refills CYCLOSPORINE 25 mg capsule [Pharmacy Med Name: CYCLOSPORINE 25MG (MOD) CAPS] 180 capsule 3 Sig: TAKE ONE CAPSULE BY MOUTH EVERY 12 HOURS VIJI: 09/05/24 NOV: 09/11/25 Liane Tineo RN [facility] 2025-04-24 08:44:01 Requested Prescriptions Pending Prescriptions Disp Refills FUROSEMIDE 20 mg tablet [Pharmacy Med Name: FUROSEMIDE 20MG TABLETS] 60 tablet 0 Sig: TAKE 1 TABLET BY MOUTH TWICE DAILY NEEDED FOR SWELLING VIJI: 09/05/24 NOV: 09/11/25 Filled 03/20/25 with 6 month supply too early for refill Liane Tineo RN [facility] 2025-04-21 10:25:11 Images from the original note were not included. Notes: 03/22/25 Last Refilled: [facility] #[id number] [place] [address] [address] [facility] OF [address] Recent Visits Date Type Provider Dept 10/05/24 Office Visit Jada Bill FNP [facility] 07/04/24 Office Visit Kathleen Marie FNP [facility] 06/08/24 Office Visit Jada Bill FNP [facility] 05/27/24 Office Visit Jada Bill FNP [facility] 02/22/24 Office Visit Jada Bill FNP [facility] Showing recent visits within past 540 days with a meds authorizing provider and meeting all other requirements Future Appointments No visits were found meeting these conditions. Showing future appointments within next 150 days with a meds authorizing provider and meeting all other requirements Name from pharmacy: ALBUTEROL HFA INH (200 PUFFS) 8.5GM Will file in chart as: albuterol sulfate HFA 90 mcg/actuation aerosol inhaler Sig: INHALE 2 PUFFS BY MOUTH EVERY 6 HOURS NEEDED FOR WHEEZING OR SHORTNESS OF BREATH Disp: 8.5 g Refills: 0 (Pharmacy requested: Not specified) Start: 04/21/2025 Class: eRX For: Subacute cough, SOB (shortness of breath) Last ordered: 1 month ago (03/22/2025) by JENNIFER Luna Last refill: 03/22/2025 Rx #: [id number]|1|0|1 Pulmonology & Allergy: Beta Agonists and Anti-muscarinics Xpxmuj8804/21/2025 03:40 AM Protocol Details Manual Review: If patient not on inhaled steroid and using bronchodilator more than twice weekly for more than 4 weeks or is having a night cough patient should be seen immediately. Manual Review: Staff refilling for allergy - 1 month supply only unless insurance requires a 3 month supply, then 3 month supply approved. Valid encounter within last 12 months To be filled at: [facility] #[id number] - [place] [address] [address] [facility] OF [address] [facility] 2025-04-20 19:38:05 Please review and advise if an OV is required. VIJI 10/05/24 NOV 10/06/25 Ella Rod LVN [facility] 2025-04-11 15:13:18 Received orders from [facility] and have placed in providers box. Yelena Crane [facility] 2025-04-10 12:31:17 Images from the original note were not included. Notes: 12/19/24 Last Refilled: [facility] #[id number] - [place] [address] [address] AT [facility] OF & Recent Visits Date Type Provider Dept 10/05/24 Office Visit Jada Bill FNP [facility] 07/04/24 Office Visit Kathleen Marie FREIGHT BOOKER [facility] 06/08/24 Office Visit Jada Bill FNP [facility] 05/27/24 Office Visit Jada Bill FNP [facility] 02/22/24 Office Visit Jada Bill FNP [facility] Showing recent visits within past 540 days with a meds authorizing provider and meeting all other requirements Future Appointments Date Type Provider Dept 04/12/25 Appointment Jada Bill FNP [facility] Showing future appointments within next 150 days with a meds authorizing provider and meeting all other requirements Name from pharmacy: GLIPIZIDE ER 2.5MG TABLETS Will file in chart as: GLIPIZIDE XL 2.5 mg 24 hr tablet Sig: TAKE 1 TABLET BY MOUTH DAILY WITH BREAKFAST Disp: 30 tablet Refills: 0 (Pharmacy requested: Not specified) Start: 04/09/2025 Class: eRX For: Controlled type 2 diabetes mellitus with chronic kidney disease, without long-term current use of insulin, unspecified CKD stage Last ordered: 3 months ago (12/19/2024) by JENNIFER Luna Last refill: 03/09/2025 Rx #: [id number]|0|1 Endocrinology: Diabetes - Sulfonylureas Ryghpl4004/09/2025 08:39 AM Protocol Details Cr in normal range and within 360 days Valid encounter within last 12 months HBA1C within 180 days To be filled at: [facility] #[id number] - [place], [place] - [address] AT [facility] & T [facility] 2025-04-08 19:21:42 Refilled Last office visit: 10/05/24 Next office visit: 04/12/25 Requested Prescriptions Pending Prescriptions Disp Refills OMEPRAZOLE 20 mg capsule [Pharmacy Med Name: OMEPRAZOLE 20MG CAPSULES] 90 capsule 0 Sig: TAKE 1 CAPSULE BY MOUTH DAILY Last refill date: 01/04/25 Notes: The encounter diagnosis was Gastroesophageal reflux disease without esophagitis. Ella Rod LVN [facility] 2025-04-08 10:31:11 Received fax from Jamal Simons, placed in providers box to review. Ted Arreola [facility] 2025-03-22 09:17:55 Images from the original note were not included. Notes: Last Refilled: Name from pharmacy: ALBUTEROL HFA INH (200 PUFFS) 8.5GM Will file in chart as: albuterol sulfate HFA 90 mcg/actuation aerosol inhaler Sig: INHALE 2 PUFFS BY MOUTH EVERY 6 HOURS NEEDED FOR WHEEZING OR SHORTNESS OF BREATH Disp: 8.5 g Refills: 0 (Pharmacy requested: Not specified) Start: 03/22/2025 Class: eRX For: Subacute cough, SOB (shortness of breath) Last ordered: 4 weeks ago (02/22/2025) by JENNIFER Luna Last refill: 02/22/2025 Rx #: [id number]|1|0|1 Pulmonology & Allergy: Beta Agonists and Anti-muscarinics Eghbbl9703/22/2025 03:40 AM Protocol Details Manual Review: If patient not on inhaled steroid and using bronchodilator more than twice weekly for more than 4 weeks or is having a night cough patient should be seen immediately. Manual Review: Staff refilling for allergy - 1 month supply only unless insurance requires a 3 month supply, then 3 month supply approved. Valid encounter within last 12 months To be filled at: [facility] #[id number] - [place], [place] - [facility] [place] [address] AT [facility] OF [address] Recent Visits Date Type Provider Dept 10/05/24 Office Visit ZohrehJada aguila, FREIGHT BOOKER [facility] 07/04/24 Office Visit Kathleen Marie, FREIGHT BOOKER [facility] 06/08/24 Office Visit ZohrehJada aguila, FREIGHT BOOKER [facility] 05/27/24 Office Visit Jada Bill, FREIGHT BOOKER [facility] 02/22/24 Office Visit Jada Bill, FREIGHT BOOKER [facility] Showing recent visits within past 540 days with a meds authorizing provider and meeting all other requirements Future Appointments Date Type Provider Dept 04/12/25 Appointment ZohrehJada aguilaMONTSEP [facility] Showing future appointments within next 150 days with a meds authorizing provider and meeting all other requirements May Coughlin MA [facility] 2025-03-20 08:42:15 Requested Prescriptions Pending Prescriptions Disp Refills FUROSEMIDE 20 mg tablet [Pharmacy Med Name: FUROSEMIDE 20MG TABLETS] 30 tablet 5 Sig: TAKE 1 TABLET BY MOUTH TWICE DAILY NEEDED FOR SWELLING VIJI: 09/05/24 NOV: 09/11/25 Liane Tineo RN [facility] 2025-03-15 08:45:00 Images from the original note were not included. Venipuncture collection performed by clean technique on the left anticubitus. Total of 1 attempts were made. Slight pressure and a bandage/dressing were applied to the site(s). The patient experienced no complications. The following specimens were processed according to instructions and sent to [facility] laboratories per lab order on 03/15/2025 : LT BLUE SST 1 RED 1 LAV 2 PPT 1 DK GREEN (LiHep) DK GREEN (SodH) FAUSTIN DK BLUE (K2) DK BLUE (S) ACD Blood Culture NIPT/NTD Patient has been identified by and name and was provided with cup, antiseptic towelette, and clean catch instructions. 2 urine specimen(s) sent. Unpreserved 2 Urine Culture Aptima tube Other urine [facility] 2025-03-09 13:18:53 Patient has an apt on 03/[address] Nava. Due to the patients insurance HMO plan she is required to obtain a referral from PCP for specialist visits. Sabina Schulte [facility] 2025-03-06 07:49:49 Images from the original note were not included. Notes: Last Refilled: Name from pharmacy: MONTELUKAST 10MG TABLETS Will file in chart as: MONTELUKAST 10 mg tablet Sig: TAKE 1 TABLET BY MOUTH EVERY EVENING Disp: 90 tablet Refills: 0 (Pharmacy requested: Not specified) Start: 03/06/2025 Class: eRX For: Persistent cough Last ordered: 3 months ago (12/01/2024) by JENNIFER Luna Last refill: 12/01/2024 Rx #: [id number]|1|0|1 Allergy Kjghoo3303/06/2025 03:40 AM Protocol Details Valid encounter within last 12 months To be filled at: [facility] #[id number] - [place] [address] [address] [facility] OF [address] Recent Visits Date Type Provider Dept 10/05/24 Office Visit Jada Bill FNP [facility] 07/04/24 Office Visit Kathleen Marie FNP [facility] 06/08/24 Office Visit Jada Bill FNP [facility] 05/27/24 Office Visit Jada Bill FNP [facility] 02/22/24 Office Visit Jada Bill FNP [facility] 09/16/23 Office Visit Jada Bill FNP [facility] Showing recent visits within past 540 days with a meds authorizing provider and meeting all other requirements Future Appointments Date Type Provider Dept 03/08/25 Appointment Jada Bill FNP [facility] Showing future appointments within next 150 days with a meds authorizing provider and meeting all other requirements Vanessa Espino MA [facility] 2025-02-22 15:01:28 Medication refilled per policy: Last office visit: 10/05/24 Next office visit: 03/08/25 Requested Prescriptions Pending Prescriptions Disp Refills albuterol sulfate HFA 90 mcg/actuation aerosol inhaler [Pharmacy Med Name: ALBUTEROL HFA INH (200 PUFFS) 8.5GM] 8.5 g 0 Sig: INHALE 2 PUFFS BY MOUTH EVERY 6 HOURS NEEDED FOR WHEEZING OR SHORTNESS OF BREATH Last fill date: 01/31/25 Notes: Diagnoses of Subacute cough and SOB (shortness of breath) were pertinent to this visit. Ella Rod LVN [facility] 2025-02-20 14:26:44 Images from the original note were not included. Notes: 09/26/24 Last Refilled: [id number] [place] [address] [address] [facility] [address] Recent Visits Date Type Provider Dept 10/05/24 Office Visit Jada Bill FNP [facility] 07/04/24 Office Visit Kathleen Marie FNP [facility] 06/08/24 Office Visit Jada Bill FNP [facility] 05/27/24 Office Visit Jada Bill FNP [facility] 02/22/24 Office Visit Jada Bill FNP [facility] 09/16/23 Office Visit Jada Bill FNP [facility] Showing recent visits within past 540 days with a meds authorizing provider and meeting all other requirements Future Appointments Date Type Provider Dept 03/08/25 Appointment Jada Bill FNP [facility] Showing future appointments within next 150 days with a meds authorizing provider and meeting all other requirements PNV,calcium 78-vwyu-gvimg acid (WESTAB PLUS) 27 mg iron- 1 mg tablet Possible duplicate: Hover to review recent actions on this medication Sig: Take 1 tablet by mouth every morning. Disp: 90 tablet Refills: 0 Start: 02/20/2025 Class: eRX Non-formulary For: Controlled type 2 diabetes mellitus with chronic kidney disease, without long-term current use of insulin, unspecified CKD stage; Anemia due to chronic kidney disease, unspecified CKD stage Last ordered: 4 months ago (09/26/2024) by JENNIFER Luna To be filled at: [facility] #[id number] [place] [address] [address] [facility] OF [address] [facility] 2025-02-16 07:32:02 Last Refilled: Disp Refills Start End ELAINE WESTAB PLUS 27 mg iron- 1 mg tablet 90 tablet 0 09/26/2024 -- No Sig: TAKE 1 TABLET BY MOUTH EVERY MORNING Sent to pharmacy as: WesTab Plus 27 mg iron-1 mg tablet (PNV,calcium 88-gwyw-mpnej acid) Class: eRX Route: Oral Order: [id number] Date/Time Signed: 09/26/2024 08:08 E-Prescribing Status: Receipt confirmed by pharmacy (09/26/2024 8:08 AM MANAGEMENT PROFESSIONAL) Notes: please review Recent Visits Date Type Provider Dept 10/05/24 Office Visit Jada Bill FNP [facility] 09/05/24 Office Visit Gwen Bhakta MD [facility] Nephrol 07/04/24 Office Visit Kathleen Marie FNP [facility] 06/08/24 Office Visit Jada Bill FNP [facility] 05/27/24 Office Visit Jada Bill FNP [facility] 03/07/24 Office Visit Gwen Bhakta MD [facility] [place] Nephrol 02/22/24 Office Visit Jada Bill FNP [facility] 09/16/23 Office Visit Jada Bill FNP [facility] Showing recent visits within past 540 days with a meds authorizing provider and meeting all other requirements Future Appointments Date Type Provider Dept 03/08/25 Appointment Jada Bill FNP [facility] Showing future appointments within next 150 days with a meds authorizing provider and meeting all other requirements Abstract on 01/16/2025 Component Date Value DD-cfDNA (External Resul* 01/09/2025 2.9 (A) Abstract on 11/09/2024 Component Date Value DD-cfDNA (External Resul* 10/31/2024 2.8 (A) Instrument Assembly Supervisor Visit on 10/07/2024 Component Date Value HCV Ab 10/07/2024 Negative HCV Semi-Quantitative 10/07/2024 0.06 Abstract on 10/05/2024 Component Date Value DD-cfDNA (External Resul* 09/16/2024 3.4 (A) Instrument Assembly Supervisor Visit on 09/23/2024 Component Date Value NA 09/23/2024 138 K 09/23/2024 3.8 CL 09/23/2024 106 CO2 TOTAL 09/23/2024 26 AGAP 09/23/2024 6 BUN 09/23/2024 27 (H) GLUCOSE 09/23/2024 113 (H) CREATININE 09/23/2024 1.02 CALCIUM 09/23/2024 9.4 eGFR 09/23/2024 60.0 WBC 09/23/2024 7.33 RBC 09/23/2024 3.59 (L) HGB 09/23/2024 11.0 (L) HCT 09/23/2024 33.9 (L) MCV 09/23/2024 94.4 MCH 09/23/2024 30.6 MCHC 09/23/2024 32.4 RDW-SD 09/23/2024 43.1 RDW-CV 09/23/2024 12.4 PLT 09/23/2024 221 MPV 09/23/2024 10.6 NRBC/100 WBC 09/23/2024 0.0 NRBC x10 3 09/23/2024 <0.01 GRAN MAT (NEUT) % 09/23/2024 66.8 IMM GRAN % 09/23/2024 1.00 LYMPH % 09/23/2024 21.7 MONO % 09/23/2024 8.3 EOS % 09/23/2024 1.8 BASO % 09/23/2024 0.4 GRAN MAT x10 3 (ANC) 09/23/2024 4.90 IMM GRAN x10 3 09/23/2024 0.07 (H) LYMPH x10 3 09/23/2024 1.59 MONO x10 3 09/23/2024 0.61 EOS x10 3 09/23/2024 0.13 BASO x10 3 09/23/2024 0.03 MAGNESIUM 09/23/2024 1.7 PHOSPHORUS 09/23/2024 4.5 APPEARANCE 09/23/2024 Clear COLOR 09/23/2024 Yellow PH 09/23/2024 5.0 SP GRAVITY 09/23/2024 1.013 GLU U QUAL 09/23/2024 Normal BLOOD 09/23/2024 Negative KETONES 09/23/2024 Negative PROTEIN 09/23/2024 30 mg/dL (A) UROBILIN 09/23/2024 Normal BILIRUBIN 09/23/2024 Negative NITRITE 09/23/2024 Negative LEUK EVARISTO 09/23/2024 Negative RBC/HPF 09/23/2024 0 WBC/HPF 09/23/2024 5 BACTERIA 09/23/2024 Few (A) SQ EPITH 09/23/2024 1 HYAL CAST 09/23/2024 1 T. PROT U 09/23/2024 39 CREAT U 09/23/2024 80.4 Protein/Creatinine Ratio* 09/23/2024 0.5 Specimen Tested 09/23/2024 Plasma CMV NAAT, Plasma - Inter* 09/23/2024 Not Detected BK Quant by NAAT, Plasma* 09/23/2024 Not Detected Hospital Outpatient Visit on 09/16/2024 Component Date Value SERUM DTE 09/16/2024 09/16/2024 CALCULATED PRA 09/16/2024 65 TEST TYPE 09/16/2024 Single Ag TEST DATE 09/16/2024 09/23/2024 T-PRA 09/16/2024 -- METHOD 09/16/2024 Luminex COMMENTS 09/16/2024 Value:No Class I DSA Detected. Performed at [facility] - Tissue Antigen DIRECTOR: SOSA WHYTE MD, PHD [address] [place] [address] CLIA No. [id number] ANALYTE SPECIFIC REAGENT STATEMENT: This test was developed and its performance characteristics determined by the [facility] Tissue Antigen Laboratory. The test has not been cleared or approved by the [place] [employer]OD and [employer]UG [employer]MINISTRATION (USFDA). The USFDA does not require licensing of reagents used in these tests. VERIFIED BY: Rashawn Head (electronic signature) 09/26/2024 REPORT DTE 09/16/2024 09/26/2024 TECH 09/16/2024 GF/CA TEST DATE 09/16/2024 09/23/2024 B-PRA 09/16/2024 -- B-ID 09/16/2024 DQ:5, 6 DQA1:01 DP:10, 14 METHOD 09/16/2024 Luminex COMMENTS 09/16/2024 Value:Class II DSA: DQ1(LZ=[id number]) Performed at [facility] - Tissue Antigen DIRECTOR: SOSA WHYTE MD, PHD [address] [place] [address] CLIA No. [id number] ANALYTE SPECIFIC REAGENT STATEMENT: This test was developed and its performance characteristics determined by the [facility] Tissue Antigen Laboratory. The test has not been cleared or approved by the [place] [employer]OD and [employer]UG [employer]MINISTRATION (USFDA). The USFDA does not require licensing of reagents used in these tests. VERIFIED BY: Rashawn Head (electronic signature) 09/26/2024 REPORT DTE 09/16/2024 09/26/2024 TECH 09/16/2024 GF/CA SERUM DTE 01/05/2025 01/05/2025 CALCULATED PRA 01/05/2025 78 TEST TYPE 01/05/2025 Single Ag TEST DATE 01/05/2025 01/12/2025 T-PRA 01/05/2025 -- METHOD 01/05/2025 Luminex COMMENTS 01/05/2025 Value:No Class I DSA Detected. Performed at [facility] - Tissue Antigen DIRECTOR: SOSA WHYTE MD, PHD [address] [place] [address] CLIA No. [id number] ANALYTE SPECIFIC REAGENT STATEMENT: This test was developed and its performance characteristics determined by the [facility] Tissue Antigen Laboratory. The test has not been cleared or approved by the [place] [employer]OD and [employer]UG [employer]MINISTRATION (USFDA). The USFDA does not require licensing of reagents used in these tests. VERIFIED BY: Rashawn Head (electronic signature) 01/17/2025 REPORT DTE 01/05/2025 01/17/2025 TECH 01/05/2025 EP TEST DATE 01/05/2025 01/12/2025 B-PRA 01/05/2025 -- B-ID 01/05/2025 DR:7 DQ:5, 6 DP:10, 14 METHOD 01/05/2025 Luminex COMMENTS 01/05/2025 Value:Class II DSA: DQ1(GN=[id number]) Performed at [facility] - Tissue Antigen DIRECTOR: SOSA WHYTE MD, PHD [address] [place] [address] CLIA No. [id number] ANALYTE SPECIFIC REAGENT STATEMENT: This test was developed and its performance characteristics determined by the [facility] Tissue Antigen Laboratory. The test has not been cleared or approved by the [place] FOOD and DRUG ADMINISTRATION (USFDA). The USFDA does not require licensing of reagents used in these tests. VERIFIED BY: Rashawn Head (electronic signature) 01/17/2025 REPORT DTE 01/05/2025 01/17/2025 TECH 01/05/2025 EP Instrument Assembly Supervisor Visit on 09/14/2024 Component Date Value ESR 09/14/2024 46 (H) CRP 09/14/2024 0.5 Office Visit on 09/09/2024 Component Date Value POCT HBA1C 09/09/2024 8.2 (A) Instrument Assembly Supervisor Visit on 08/29/2024 Component Date Value CYA 2 08/29/2024 328 WBC 08/29/2024 7.72 RBC 08/29/2024 3.70 (L) HGB 08/29/2024 11.2 (L) HCT 08/29/2024 34.8 (L) MCV 08/29/2024 94.1 MCH 08/29/2024 30.3 MCHC 08/29/2024 32.2 RDW-SD 08/29/2024 43.5 RDW-CV 08/29/2024 12.6 PLT 08/29/2024 212 MPV 08/29/2024 10.5 IPF % 08/29/2024 3.3 NRBC/100 WBC 08/29/2024 0.0 NRBC x10 3 08/29/2024 <0.01 GRAN MAT (NEUT) % 08/29/2024 71.0 IMM GRAN % 08/29/2024 0.60 LYMPH % 08/29/2024 19.7 MONO % 08/29/2024 7.0 EOS % 08/29/2024 1.2 BASO % 08/29/2024 0.5 GRAN MAT x10 3 (ANC) 08/29/2024 5.48 IMM GRAN x10 3 08/29/2024 0.05 LYMPH x10 3 08/29/2024 1.52 MONO x10 3 08/29/2024 0.54 EOS x10 3 08/29/2024 0.09 BASO x10 3 08/29/2024 0.04 MAGNESIUM 08/29/2024 1.6 (L) PHOSPHORUS 08/29/2024 5.2 (H) APPEARANCE 08/29/2024 Clear COLOR 08/29/2024 Yellow PH 08/29/2024 5.0 SP GRAVITY 08/29/2024 1.010 GLU U QUAL 08/29/2024 Normal BLOOD 08/29/2024 Negative KETONES 08/29/2024 Negative PROTEIN 08/29/2024 30 mg/dL (A) UROBILIN 08/29/2024 Normal BILIRUBIN 08/29/2024 Negative NITRITE 08/29/2024 Negative LEUK EVARISTO 08/29/2024 Negative RBC/HPF 08/29/2024 <1 WBC/HPF 08/29/2024 2 BACTERIA 08/29/2024 Negative SQ EPITH 08/29/2024 2 T. PROT U 08/29/2024 31 CREAT U 08/29/2024 42.3 Protein/Creatinine Ratio* 08/29/2024 0.7 Specimen Tested 08/29/2024 Plasma CMV NAAT, Plasma - log I* 08/29/2024 <1.72 CMV NAAT, Plasma - IU/mL 08/29/2024 <53 CMV NAAT, Plasma - Inter* 08/29/2024 Detected, not Quantifiable (A) NA 08/29/2024 137 K 08/29/2024 4.1 CL 08/29/2024 104 CO2 TOTAL 08/29/2024 25 AGAP 08/29/2024 8 BUN 08/29/2024 22 GLUCOSE 08/29/2024 122 (H) CREATININE 08/29/2024 0.93 TOTAL BILI 08/29/2024 0.9 CALCIUM 08/29/2024 9.6 T PROTEIN 08/29/2024 7.0 ALBUMIN 08/29/2024 3.7 ALK PHOS 08/29/2024 77 ALTv 08/29/2024 13 AST(SGOT) 08/29/2024 19 eGFR 08/29/2024 67.1 Office Visit on 07/04/2024 Component Date Value URINE CULTURE 07/04/2024 < 10,000 CFU/mL aerobic organisms - suggests endogenous microbial contamination APPEARANCE 07/04/2024 Hazy (A) COLOR 07/04/2024 Yellow PH 07/04/2024 5.0 SP GRAVITY 07/04/2024 1.011 GLU U QUAL 07/04/2024 500 mg/dL (A) BLOOD 07/04/2024 Negative KETONES 07/04/2024 Negative PROTEIN 07/04/2024 Negative UROBILIN 07/04/2024 Normal BILIRUBIN 07/04/2024 Negative NITRITE 07/04/2024 Negative LEUK EVARISTO 07/04/2024 Negative RBC/HPF 07/04/2024 <1 WBC/HPF 07/04/2024 1 BACTERIA 07/04/2024 Negative SQ EPITH 07/04/2024 2 There may be more visits with results that are not included. Andria Steward RN [facility] 2025-01-10 16:06:18 Called daughter. [employer] requested her come in. Compliance follow up. Per daughter no issues. GEMENT PROFESSIONAL Venkata Oconnor MA [facility] 2025-01-04 11:30:44 VIJI 09/05/24 NOV 09/11/25 GEMENT PROFESSIONAL Suha Meneses RN [facility] 2025-01-04 11:26:38 Routing to correct pool(Kidney transplant) GEMENT PROFESSIONAL Roya Burrell RN [facility] 2025-01-04 11:19:27 Qty:: 180 ISELA Chacon [facility] 2025-01-04 08:06:36 Last Refilled: Disp Refills Start End ELAINE ALBUTEROL 90 mcg/actuation inhaler 8.5 g 0 12/06/2024 -- No Sig: INHALE 2 PUFFS BY MOUTH EVERY 6 HOURS NEEDED FOR WHEEZING OR SHORTNESS OF BREATH Sent to pharmacy as: ALBUTEROL 90 mcg/actuation inhaler Class: eRX Route: Inhalation Order: [id number] Date/Time Signed: 12/06/2024 17:19 E-Prescribing Status: Receipt confirmed by pharmacy (12/06/2024 5:20 PM MANAGEMENT PROFESSIONAL) Disp Refills Start End ELAINE OMEPRAZOLE 20 mg capsule 90 capsule 0 10/03/2024 -- No Sig: TAKE 1 CAPSULE BY MOUTH DAILY Sent to pharmacy as: omeprazole 20 mg capsule,delayed release (PRILOSEC) Class: eRX Route: Oral Order: [id number] Date/Time Signed: 10/03/2024 11:48 E-Prescribing Status: Receipt confirmed by pharmacy (10/03/2024 11:49 AM MANAGEMENT PROFESSIONAL) Notes:please review Recent Visits Date Type Provider Dept 10/05/24 Office Visit Cotta, Jada, FREIGHT BOOKER [facility] 07/04/24 Office Visit Kathleen Marie, FREIGHT BOOKER [facility] 06/08/24 Office Visit Jada Bill, FREIGHT BOOKER [facility] 05/27/24 Office Visit LandyJada, FREIGHT BOOKER [facility] 02/22/24 Office Visit LandyJeanejeny FREIGHT BOOKER [facility] 09/16/23 Office Visit LandyJeanejeny FREIGHT BOOKER [facility] Showing recent visits within past 540 days with a meds authorizing provider and meeting all other requirements Future Appointments Date Type Provider Dept 02/10/25 Appointment Landy MONTSE EliasP [facility] Showing future appointments within next 150 days with a meds authorizing provider and meeting all other requirements GEMENT PROFESSIONAL Andria Steward RN [facility] 2024-12-29 12:34:12 Last Refilled: Disp Refills Start End ELAINE GLIPIZIDE 10 mg tablet 180 tablet 1 09/26/2024 -- No Sig: TAKE 1 TABLET BY MOUTH TWICE DAILY BEFORE BREAKFAST AND DINNER Sent to pharmacy as: glipiZIDE 10 mg tablet (GLUCOTROL) Class: eRX Order: [id number] Date/Time Signed: 09/26/2024 08:08 E-Prescribing Status: Receipt confirmed by pharmacy (09/26/2024 8:08 AM MANAGEMENT PROFESSIONAL) Notes: Please review Recent Visits Date Type Provider Dept 10/05/24 Office Visit Jada Bill FNP [facility] 09/05/24 [facility] [place] [facility] 07/04/24 Office Visit Kathleen Marie FNP [facility] 06/08/24 Office Visit Jada Bill, FREIGHT BOOKER [facility] 05/27/24 Office Visit Jada Bill, FREIGHT BOOKER [facility] 03/07/24 Office Visit [facility] [place] [facility] Neph[facility] 02/22/24 Office Visit Jada Bill FREIGHT BOOKER [facility] 09/16/23 Office Visit Jada Bill, FREIGHT BOOKER [facility] 08/20/23 Office Visit Aurelio Medel MD [facility] Nephrol Showing recent visits within past 540 days with a meds authorizing provider and meeting all other requirements Future Appointments Date Type Provider Dept 02/10/25 Appointment Jada Bill FREIGHT BOOKER [facility] Showing future appointments within next 150 days with a meds authorizing provider and meeting all other requirements GEMENT PROFESSIONAL Andria Steward RN [facility] 2024-12-22 13:12:56 Images from the original note were not included. Notes: pt requesting 90 days Last Refilled: [facility] #[id number] [place] [address] [address] [facility] [address] Recent Visits Date Type Provider Dept 10/05/24 Office Visit Jaad Bill FREIGHT BOOKER [facility] 07/04/24 Office Visit Kathleen Marie FREIGHT BOOKER [facility] 06/08/24 Office Visit Jada Bill, FREIGHT BOOKER [facility] 05/27/24 Office Visit Jada Bill, FREIGHT BOOKER [facility] 02/22/24 Office Visit Jada Bill FREIGHT BOOKER [facility] 09/16/23 Office Visit Jada Bill FREIGHT BOOKER [facility] Showing recent visits within past 540 days with a meds authorizing provider and meeting all other requirements Future Appointments Date Type Provider Dept 02/03/25 Appointment Jada Bill FREIGHT BOOKER [facility] Showing future appointments within next 150 days with a meds authorizing provider and meeting all other requirements Name from pharmacy: FAMOTIDINE 20MG TABLETS Will file in chart as: FAMOTIDINE 20 mg tablet Possible duplicate: Hover to review recent actions on this medication Sig: TAKE 1 TABLET BY MOUTH TWICE DAILY Disp: 180 tablet Refills: Not specified Start: 12/22/2024 Class: eRX For: Gastroesophageal reflux disease without esophagitis To pharmacy: Patient requests 90 days supply Last ordered: Today (12/22/2024) by JENNIFER Luna Last refill: 12/22/2024 Rx #: [id number]|1 Gastroenterology: Antiulcer - H2 Antagonists [id number]/22/2024 09:15 AM Protocol Details Valid encounter within last 12 months eGFR in normal range and within 360 days Cr in normal range and within 360 days To be filled at: [facility] #[id number] - [place] [address] [address] [facility] OF [address] [facility] 2024-12-22 07:04:01 Last Refilled: Disp Refills Start End ELAINE FAMOTIDINE 20 mg tablet 60 tablet 1 09/19/2024 -- No Sig: TAKE 1 TABLET BY MOUTH TWICE DAILY Sent to pharmacy as: famotidine 20 mg tablet (PEPCID AC) Class: eRX Route: Oral Order: [id number] Date/Time Signed: 09/19/2024 08:31 E-Prescribing Status: Receipt confirmed by pharmacy (09/19/2024 8:31 AM CDT) Disp Refills Start End ELAINE rosuvastatin 5 mg tablet 90 tablet 1 06/10/2024 -- No Sig: Take 1 tablet by mouth at bedtime. Sent to pharmacy as: rosuvastatin 5 mg tablet (CRESTOR) Class: eRX Route: Oral Order: [id number] Date/Time Signed: 06/10/2024 08:25 E-Prescribing Status: Receipt confirmed by pharmacy (06/10/2024 8:25 AM CDT) Notes: Recent Visits Date Type Provider Dept 10/05/24 Office Visit Jada Bill FNP [facility] 07/04/24 Office Visit Kathleen Marie FNP [facility] 06/08/24 Office Visit Jada Bill FNP [facility] 05/27/24 Office Visit Cotta, Jada, FREIGHT BOOKER [facility] 02/22/24 Office Visit Jada Bill FNP [facility] 09/16/23 Office Visit Jada Bill FNP [facility] Showing recent visits within past 540 days with a meds authorizing provider and meeting all other requirements Future Appointments Date Type Provider Dept 02/03/25 Appointment Jada Bill FNP [facility] Showing future appointments within next 150 days with a meds authorizing provider and meeting all other requirements GEMENT PROFESSIONAL Andria Steward RN [facility] 2024-12-19 11:07:09 Images from the original note were not included. MEDICATION REFILL REQUEST The following eRX(s) were sent to the requested pharmacy Requested Prescriptions Pending Prescriptions Disp Refills FUROSEMIDE 20 mg tablet [Pharmacy Med Name: FUROSEMIDE 20MG TABLETS] 30 tablet 5 Sig: TAKE 1 TABLET BY MOUTH TWICE DAILY NEEDED FOR SWELLING VIJI:09/05/24 - Janessa-Kenisha NOV:09/11/25 Roxanna Buitrago RN, BSN [employer] Office: [phone] | Direct: [phone] Email: [email or web address] ISELA Buitrago RN [facility] 2024-12-15 08:43:23 Images from the original note were not included. Notes: 08/26/24 Last Refilled: [facility] #[id number] - [place], [place] - [facility] [place] [address] [facility] [address] Recent Visits Date Type Provider Dept 10/05/24 Office Visit Jada Bill FNP [facility] 07/04/24 Office Visit Kathleen Marie FNP [facility] 06/08/24 Office Visit Jada Bill FNP [facility] 05/27/24 Office Visit Jada Bill FREIGHT BOOKER [facility] 02/22/24 Office Visit Jada Bill FNP [facility] 09/16/23 Office Visit Landy JENNIFER Elias [facility] Showing recent visits within past 540 days with a meds authorizing provider and meeting all other requirements Future Appointments Date Type Provider Dept 02/03/25 Appointment Jada Bill FNP [facility] Showing future appointments within next 150 days with a meds authorizing provider and meeting all other requirements Name from pharmacy: GLIPIZIDE ER 2.5MG TABLETS Will file in chart as: GLIPIZIDE XL 2.5 mg 24 hr tablet Sig: TAKE 1 TABLET BY MOUTH DAILY WITH BREAKFAST. Original sig: TAKE 1 TABLET BY MOUTH DAILY WITH BREAKFAST Disp: 90 tablet Refills: 1 (Pharmacy requested: Not specified) Start: 12/10/2024 Class: eRX For: Controlled type 2 diabetes mellitus with chronic kidney disease, without long-term current use of insulin, unspecified CKD stage To pharmacy: ZERO refills remain on this prescription. Your patient is requesting advance approval of refills for this medication to PREVENT ANY MISSED DOSES Last ordered: 3 months ago (08/26/2024) by JENNIFER Luna Last refill: 12/06/2024 Rx #: [id number]|0|1 Endocrinology: Diabetes - Sulfonylureas [id number]/10/2024 08:05 AM Protocol Details Valid encounter within last 12 months HBA1C within 180 days Cr in normal range and within 360 days To be filled at: [facility] #[id number] [place] [address] [address] [facility] OF [address] [facility] 2024-12-06 10:22:37 Images from the original note were not included. Notes: Last Refilled: Name from pharmacy: ALBUTEROL HFA INH (200 PUFFS) 8.5GM Will file in chart as: ALBUTEROL 90 mcg/actuation inhaler Sig: INHALE 2 PUFFS BY MOUTH EVERY 6 HOURS NEEDED FOR WHEEZING OR SHORTNESS OF BREATH Disp: 8.5 g Refills: 0 (Pharmacy requested: Not specified) Start: 12/05/2024 Class: eRX For: Subacute cough, SOB (shortness of breath) Last ordered: 2 months ago (09/14/2024) by JENNIFER Luna Last refill: 09/14/2024 Rx #: [id number]|0|1 Pulmonology & Allergy: Beta Agonists and Anti-muscarinics Chcevf1712/05/2024 09:40 PM Protocol Details Manual Review: If patient not on inhaled steroid and using bronchodilator more than twice weekly for more than 4 weeks or is having a night cough patient should be seen immediately. Manual Review: Staff refilling for allergy - 1 month supply only unless insurance requires a 3 month supply, then 3 month supply approved. Valid encounter within last 12 months To be filled at: [facility] #[id number] - [place] [address] AT [facility] OF [address] Recent Visits Date Type Provider Dept 10/05/24 Office Visit Jada Bill FNP [facility] 07/04/24 Office Visit Kathleen Marie FNP [facility] 06/08/24 Office Visit Jada Bill FNP [facility] 05/27/24 Office Visit Jada Bill FNP [facility] 02/22/24 Office Visit Jada Bill FNP [facility] 09/16/23 Office Visit Jada Bill FNP [facility] Showing recent visits within past 540 days with a meds authorizing provider and meeting all other requirements Future Appointments Date Type Provider Dept 02/03/25 Appointment Jada Bill FNP [facility] Showing future appointments within next 150 days with a meds authorizing provider and meeting all other requirements GEMENT PROFESSIONAL Vanessa Espino MA [facility] 2024-12-01 16:39:52 Images from the original note were not included. Notes: 08/26/24 Last Refilled: [facility] #[id number] - [place] [address] AT [facility] OF [address] Recent Visits Date Type Provider Dept 10/05/24 Office Visit Jada Bill, FREIGHT BOOKER [facility] 07/04/24 Office Visit Kathleen Marie FREIGHT BOOKER [facility] 06/08/24 Office Visit Landy Jada, [facility]RE[facility] 05/27/24 Office Visit Zohrehmingo Jada [facility] 02/22/24 Office Visit Jeane Billjeny [facility] 09/16/23 Office Visit Jada Bill [facility] Showing recent visits within past 540 days with a meds authorizing provider and meeting all other requirements Future Appointments Date Type Provider Dept 02/03/25 Appointment Zohrehmingo MONTSE EliasP [facility] Showing future appointments within next 150 days with a meds authorizing provider and meeting all other requirements Name from pharmacy: MONTELUKAST 10MG TABLETS Will file in chart as: MONTELUKAST 10 mg tablet Sig: Take 1 tablet by mouth every evening. Original sig: TAKE 1 TABLET BY MOUTH EVERY EVENING Disp: 90 tablet Refills: 0 (Pharmacy requested: Not specified) Start: 12/01/2024 Class: eRX For: Persistent cough Last ordered: 3 months ago (08/26/2024) by JENNIFER Luna Last refill: 08/26/2024 Rx #: [id number] Allergy Ohhcyv6712/01/2024 12:51 PM Protocol Details Valid encounter within last 12 months To be filled at: [id number] - [place], [place] - [address] [facility] [address] GEMENT PROFESSIONAL [facility] 2024-11-21 14:16:29 Allosure remains elevated at 2.8. emailed Dr. Mcnally and cc'ed Dr. Art ISELA Meneses RN [facility] 2024-11-18 13:43:18 Refill has been sent to pharmacy on file. GEMENT PROFESSIONAL Kaylee Lopes RN [facility] 2024-10-31 13:46:24 Clarified with provider that it was okay to still use insulin after being out of fridge x1d. Per Dr. Suárez, pt is fine to continue using insulin pens. Pt verbalized understanding. ISELA Lopes RN [facility] 2024-10-07 09:00:00 Images from the original note were not included. Venipuncture collection performed by clean technique on the left anticubitus. Total of 1 attempts were made. Slight pressure and a bandage/dressing were applied to the site(s). The patient experienced no complications. The following specimens were processed according to instructions and sent to [facility] laboratories per lab order on 10/07/2024 : LT BLUE SST 1 RED LAV PPT DK GREEN (LiHep) DK GREEN (SodH) FAUSTIN DK BLUE (K2) DK BLUE (S) ACD Blood Culture NIPT/NTD [facility] 2024-10-04 14:44:14 Allosure elevated at 3.4% Dr. Art notified ISELA Meneses RN [facility] 2024-10-03 11:48:32 Images from the original note were not included. Notes: Last Refilled: Name from pharmacy: OMEPRAZOLE 20MG CAPSULES Will file in chart as: OMEPRAZOLE 20 mg capsule Sig: TAKE 1 CAPSULE BY MOUTH DAILY Disp: 90 capsule Refills: 0 (Pharmacy requested: Not specified) Start: 10/02/2024 Class: eRX For: Gastroesophageal reflux disease without esophagitis Last ordered: 3 months ago (07/01/2024) by JENNIFER Luna Last refill: 07/01/2024 Rx #: [id number] Gastroenterology: Antiulcer - Proton Pump Inhibitors Iwhbbc2210/02/2024 06:13 PM Protocol Details Valid encounter within last 12 months To be filled at: [id number] - [place] [address] [address] [facility] [address] Recent Visits Date Type Provider Dept 07/04/24 Office Visit Kathleen Marie FNP [facility] 06/08/24 Office Visit Jada Bill FNP [facility] 05/27/24 Office Visit Jada Bill FNP [facility] 02/22/24 Office Visit Jada Bill FNP [facility] 09/16/23 Office Visit Jada Bill FNP [facility] 06/02/23 Office Visit Jada Bill FNP [facility] Showing recent visits within past 540 days with a meds authorizing provider and meeting all other requirements Future Appointments Date Type Provider Dept 10/05/24 Appointment Jada Bill FNP [facility] Showing future appointments within next 150 days with a meds authorizing provider and meeting all other requirements GEMENT PROFESSIONAL Vanessa Espino MA [facility] 2024-09-26 08:03:14 Images from the original note were not included. Last Refilled: Disp Refills Start End ELAINE GLIPIZIDE 10 mg tablet 180 tablet 1 03/14/2024 -- No Sig: TAKE 1 TABLET BY MOUTH TWICE DAILY BEFORE BREAKFAST AND DINNER Sent to pharmacy as: glipiZIDE 10 mg tablet (GLUCOTROL) Class: eRX Order: [id number] Date/Time Signed: 03/14/2024 13:11 E-Prescribing Status: Receipt confirmed by pharmacy (03/14/2024 1:11 PM CDT) Disp Refills Start End ELAINE PNV,calcium 96-fctl-olaxw acid (WESTAB PLUS) 27 mg iron- 1 mg tablet 90 tablet 0 06/23/2024 -- No Sig: Take 1 tablet by mouth every morning. Sent to pharmacy as: WesTab Plus 27 mg iron-1 mg tablet (PNV,calcium 57-nqps-shvgb acid) Class: eRX Route: Oral Order: [id number] Date/Time Signed: 06/23/2024 15:31 E-Prescribing Status: Receipt confirmed by pharmacy (06/23/2024 3:48 PM CDT) Notes: office visit 09/05/24 Return in about 1 year (around 09/05/2025). Continue all current medications for now RTC in 1 year Labs every 3 months Recent Visits Date Type Provider Dept 09/05/24 Office Visit [facility] 07/04/24 Office Visit Kathleen Marie FNP [facility] 06/08/24 Office Visit Jada Bill [facility] 05/27/24 Office Visit Jada Bill [facility] 03/07/24 Office Visit [facility] 02/22/24 Office Visit Jada Bill FNP [facility] 09/16/23 Office Visit Jada Bill [facility] 08/20/23 Office Visit Aurelio Medel [facility] 06/02/23 Office Visit Jada Bill [facility] Showing recent visits within past 540 days with a meds authorizing provider and meeting all other requirements Future Appointments Date Type Provider Dept 10/05/24 Appointment Jada Bill FNP [facility] Showing future appointments within next 150 days with a meds authorizing provider and meeting all other requirements ISELA Steward RN [facility] 2024-09-23 09:15:00 Images from the original note were not included. Venipuncture collection performed by clean technique on the right anticubitus. Total of 1 attempts were made. Slight pressure and a bandage/dressing were applied to the site(s). The patient experienced no complications. The following specimens were processed according to instructions and sent to [facility] laboratories per lab order on 09/23/2024 : LT BLUE SST 1 RED 1 LAV 1 PPT 2 DK GREEN (LiHep) DK GREEN (SodH) FAUSTIN DK BLUE (K2) DK BLUE (S) ACD Blood Culture NIPT/NTD Patient has been identified by and name and was provided with cup, antiseptic towelette, and clean catch instructions. 2 urine specimen(s) sent. Unpreserved 2 Urine Culture Aptima tube Other urine T [facility] 2024-09-21 14:53:34 Addended by: SUHA MENESES on: 09/21/2024 02:53 PM Modules accepted: Orders T [facility] 2024-09-21 14:47:45 Pts daughter returned call. Lab appt scheduled T [facility] 2024-09-21 13:13:31 Called pt again using elementary spanish teacher # [id number]. Pts cell disconnected. Called pts alternate contact (Radha), who deferred to her sister, Mya (same disconneted # as pt). She advised I call Mya after 3:30PM. Will try again at that time T Suha Meneses RN [facility] 2024-09-20 12:04:43 Allosure elevated at 3.4, last HLA 05/2023 Called pt to ask she go to lab for HLA collection. No answer, LVM requesting call back Suha Meneses RN [facility] 2024-09-19 08:30:08 Last Refilled: Disp Refills Start End ELAINE FAMOTIDINE 20 mg tablet 60 tablet 1 07/01/2024 -- No Sig: TAKE 1 TABLET BY MOUTH TWICE DAILY Sent to pharmacy as: famotidine 20 mg tablet (PEPCID AC) Class: eRX Route: Oral Order: [id number] Date/Time Signed: 07/01/2024 13:06 E-Prescribing Status: Receipt confirmed by pharmacy (07/01/2024 1:06 PM CDT) Notes: Recent Visits Date Type Provider Dept 07/04/24 Office Visit Kathleen Marie [facility] 06/08/24 Office Visit Jada Bill [facility] 05/27/24 Office Visit Jada Bill [facility] 02/22/24 Office Visit Jada Bill [facility] 09/16/23 Office Visit Jada Bill [facility] 06/02/23 Office Visit Jada Bill [facility] 04/03/23 Office Visit Jada Bill [facility] Showing recent visits within past 540 days with a meds authorizing provider and meeting all other requirements Future Appointments Date Type Provider Dept 09/21/24 Appointment Jada Bill [facility] Showing future appointments within next 150 days with a meds authorizing provider and meeting all other requirements Instrument Assembly Supervisor Visit on 09/14/2024 Component Date Value ESR 09/14/2024 46 (H) CRP 09/14/2024 0.5 Office Visit on 09/09/2024 Component Date Value POCT HBA1C 09/09/2024 8.2 (A) Instrument Assembly Supervisor Visit on 08/29/2024 Component Date Value CYA 2 08/29/2024 328 WBC 08/29/2024 7.72 RBC 08/29/2024 3.70 (L) HGB 08/29/2024 11.2 (L) HCT 08/29/2024 34.8 (L) MCV 08/29/2024 94.1 MCH 08/29/2024 30.3 MCHC 08/29/2024 32.2 RDW-SD 08/29/2024 43.5 RDW-CV 08/29/2024 12.6 PLT 08/29/2024 212 MPV 08/29/2024 10.5 IPF % 08/29/2024 3.3 NRBC/100 WBC 08/29/2024 0.0 NRBC x10 3 08/29/2024 <0.01 GRAN MAT (NEUT) % 08/29/2024 71.0 IMM GRAN % 08/29/2024 0.60 LYMPH % 08/29/2024 19.7 MONO % 08/29/2024 7.0 EOS % 08/29/2024 1.2 BASO % 08/29/2024 0.5 GRAN MAT x10 3 (ANC) 08/29/2024 5.48 IMM GRAN x10 3 08/29/2024 0.05 LYMPH x10 3 08/29/2024 1.52 MONO x10 3 08/29/2024 0.54 EOS x10 3 08/29/2024 0.09 BASO x10 3 08/29/2024 0.04 MAGNESIUM 08/29/2024 1.6 (L) PHOSPHORUS 08/29/2024 5.2 (H) APPEARANCE 08/29/2024 Clear COLOR 08/29/2024 Yellow PH 08/29/2024 5.0 SP GRAVITY 08/29/2024 1.010 GLU U QUAL 08/29/2024 Normal BLOOD 08/29/2024 Negative KETONES 08/29/2024 Negative PROTEIN 08/29/2024 30 mg/dL (A) UROBILIN 08/29/2024 Normal BILIRUBIN 08/29/2024 Negative NITRITE 08/29/2024 Negative LEUK EVARISTO 08/29/2024 Negative RBC/HPF 08/29/2024 <1 WBC/HPF 08/29/2024 2 BACTERIA 08/29/2024 Negative SQ EPITH 08/29/2024 2 T. PROT U 08/29/2024 31 CREAT U 08/29/2024 42.3 Protein/Creatinine Ratio* 08/29/2024 0.7 Specimen Tested 08/29/2024 Plasma CMV NAAT - log IU/mL 08/29/2024 <1.72 CMV NAAT - IU/mL 08/29/2024 <53 CMV NAAT 08/29/2024 Detected, not Quantifiable (A) NA 08/29/2024 137 K 08/29/2024 4.1 CL 08/29/2024 104 CO2 TOTAL 08/29/2024 25 AGAP 08/29/2024 8 BUN 08/29/2024 22 GLUCOSE 08/29/2024 122 (H) CREATININE 08/29/2024 0.93 TOTAL BILI 08/29/2024 0.9 CALCIUM 08/29/2024 9.6 T PROTEIN 08/29/2024 7.0 ALBUMIN 08/29/2024 3.7 ALK PHOS 08/29/2024 77 ALTv 08/29/2024 13 AST(SGOT) 08/29/2024 19 eGFR 08/29/2024 67.1 Office Visit on 07/04/2024 Component Date Value URINE CULTURE 07/04/2024 < 10,000 CFU/mL aerobic organisms - suggests endogenous microbial contamination APPEARANCE 07/04/2024 Hazy (A) COLOR 07/04/2024 Yellow PH 07/04/2024 5.0 SP GRAVITY 07/04/2024 1.011 GLU U QUAL 07/04/2024 500 mg/dL (A) BLOOD 07/04/2024 Negative KETONES 07/04/2024 Negative PROTEIN 07/04/2024 Negative UROBILIN 07/04/2024 Normal BILIRUBIN 07/04/2024 Negative NITRITE 07/04/2024 Negative LEUK EVARISTO 07/04/2024 Negative RBC/HPF 07/04/2024 <1 WBC/HPF 07/04/2024 1 BACTERIA 07/04/2024 Negative SQ EPITH 07/04/2024 2 Urgent Care on 06/30/2024 Component Date Value POCT U SP GRAV 06/30/2024 1.010 POCT PH U 06/30/2024 5 POCT U LEUK EST 06/30/2024 + POCT U NIT 06/30/2024 Negative POCT U PROT 06/30/2024 Trace POCT U GLU 06/30/2024 50 POCT U KETONE 06/30/2024 Negative POCT U UROBILI 06/30/2024 Negative POCT U BILI 06/30/2024 Negative POCT U BLD 06/30/2024 Trace POCT U COLOR 06/30/2024 Yellow POCT U APPEAR 06/30/2024 Cloudy URINE CULTURE 06/30/2024 >100,000 CFU/mL Klebsiella pneumoniae (A) Admission on 06/09/2024, Discharged on 06/09/2024 Component Date Value WBC 06/09/2024 9.82 RBC 06/09/2024 3.68 (L) HGB 06/09/2024 10.9 (L) HCT 06/09/2024 33.0 (L) MCV 06/09/2024 89.7 MCH 06/09/2024 29.6 MCHC 06/09/2024 33.0 RDW-SD 06/09/2024 39.4 RDW-CV 06/09/2024 12.3 PLT 06/09/2024 203 MPV 06/09/2024 10.6 NRBC/100 WBC 06/09/2024 0.0 NRBC x10 3 06/09/2024 <0.01 GRAN MAT (NEUT) % 06/09/2024 87.6 IMM GRAN % 06/09/2024 0.60 LYMPH % 06/09/2024 6.8 MONO % 06/09/2024 4.7 EOS % 06/09/2024 0.2 BASO % 06/09/2024 0.1 GRAN MAT x10 3 (ANC) 06/09/2024 8.60 (H) IMM GRAN x10 3 06/09/2024 0.06 LYMPH x10 3 06/09/2024 0.67 (L) MONO x10 3 06/09/2024 0.46 EOS x10 3 06/09/2024 <0.03 (L) BASO x10 3 06/09/2024 <0.03 APPEARANCE 06/09/2024 Clear COLOR 06/09/2024 Colorless PH 06/09/2024 6.5 SP GRAVITY 06/09/2024 1.014 GLU U QUAL 06/09/2024 >1000 mg/dL (A) BLOOD 06/09/2024 Negative KETONES 06/09/2024 Negative PROTEIN 06/09/2024 Negative UROBILIN 06/09/2024 Normal BILIRUBIN 06/09/2024 Negative NITRITE 06/09/2024 Negative LEUK EVARISTO 06/09/2024 Negative RBC/HPF 06/09/2024 1 WBC/HPF 06/09/2024 9 (H) BACTERIA 06/09/2024 Many (A) NA 06/09/2024 130 (L) K 06/09/2024 4.4 CL 06/09/2024 97 (L) CO2 TOTAL 06/09/2024 25 AGAP 06/09/2024 8 BUN 06/09/2024 20 GLUCOSE 06/09/2024 475 (HH) CREATININE 06/09/2024 1.12 (H) TOTAL BILI 06/09/2024 0.7 CALCIUM 06/09/2024 8.7 T PROTEIN 06/09/2024 6.2 (L) ALBUMIN 06/09/2024 3.6 ALK PHOS 06/09/2024 108 ALTv 06/09/2024 11 AST(SGOT) 06/09/2024 18 eGFR 06/09/2024 53.7 LIPASE 06/09/2024 243 (H) PH 06/09/2024 7.39 PCO2 LUISA 06/09/2024 39 (L) PO2 LUISA 06/09/2024 31 HCO3 LUISA 06/09/2024 23 (L) AC VBE(BEAKER) 06/09/2024 -1.5 THB LUISA 06/09/2024 12.2 %O2HB LUISA 06/09/2024 58.7 %COHB LUISA 06/09/2024 0.3 %METHB LUISA 06/09/2024 0.3 (L) VOL%O2 LUISA 06/09/2024 10.1 NA 06/09/2024 132 (L) K+ 06/09/2024 4.3 AC CA IONZ 06/09/2024 4.50 GLUCOSE 06/09/2024 498 (HH) LACTIC ACID 06/09/2024 1.47 TROPONIN I 06/09/2024 0.005 NT-proBNP 06/09/2024 440 BOH 06/09/2024 0.5 URINE CULTURE 06/09/2024 >100,000 CFU/mL Klebsiella pneumoniae (A) Instrument Assembly Supervisor Visit on 06/08/2024 Component Date Value NA 06/08/2024 127 (L) K 06/08/2024 4.7 CL 06/08/2024 96 (L) CO2 TOTAL 06/08/2024 25 AGAP 06/08/2024 6 BUN 06/08/2024 25 (H) GLUCOSE 06/08/2024 624 (HH) CREATININE 06/08/2024 1.22 (H) TOTAL BILI 06/08/2024 1.1 CALCIUM 06/08/2024 8.7 T PROTEIN 06/08/2024 6.9 ALBUMIN 06/08/2024 3.8 ALK PHOS 06/08/2024 100 ALTv 06/08/2024 13 AST(SGOT) 06/08/2024 44 (H) eGFR 06/08/2024 48.4 HGB A1C 06/08/2024 10.4 (H) CREAT U 06/08/2024 28.3 MICROALB U 06/08/2024 50 (H) MICROAL/CR 06/08/2024 177 (H) NT-proBNP 06/08/2024 382 Office Visit on 06/08/2024 Component Date Value WBC 06/08/2024 11.19 (H) RBC 06/08/2024 3.59 (L) HGB 06/08/2024 11.1 (L) HCT 06/08/2024 33.5 (L) MCV 06/08/2024 93.3 MCH 06/08/2024 30.9 MCHC 06/08/2024 33.1 RDW-SD 06/08/2024 42.0 RDW-CV 06/08/2024 12.4 PLT 06/08/2024 188 MPV 06/08/2024 11.2 NRBC/100 WBC 06/08/2024 0.0 NRBC x10 3 06/08/2024 <0.01 GRAN MAT (NEUT) % 06/08/2024 89.8 IMM GRAN % 06/08/2024 0.60 LYMPH % 06/08/2024 4.9 MONO % 06/08/2024 4.4 EOS % 06/08/2024 0.0 BASO % 06/08/2024 0.3 GRAN MAT x10 3 (ANC) 06/08/2024 10.05 (H) IMM GRAN x10 3 06/08/2024 0.07 (H) LYMPH x10 3 06/08/2024 0.55 (L) MONO x10 3 06/08/2024 0.49 EOS x10 3 06/08/2024 <0.03 (L) BASO x10 3 06/08/2024 0.03 Instrument Assembly Supervisor Visit on 06/06/2024 Component Date Value CYA 2 06/06/2024 235 Office Visit on 05/27/2024 Component Date Value URINE CULTURE 05/27/2024 < 10,000 CFU/mL aerobic organisms - suggests endogenous microbial contamination POCT U SP GRAV 05/27/2024 1.015 POCT PH U 05/27/2024 5 POCT U LEUK EST 05/27/2024 neg POCT U NIT 05/27/2024 neg POCT U PROT 05/27/2024 30 POCT U GLU 05/27/2024 100 POCT U KETONE 05/27/2024 neg POCT U UROBILI 05/27/2024 0.2 POCT U BILI 05/27/2024 neg POCT U BLD 05/27/2024 neg POCT SARS-COV-2 ANTIGEN 05/27/2024 Not Detected On board controls accept* 05/27/2024 Yes There may be more visits with results that are not included. Andria Steward RN [facility] 2024-09-15 14:44:39 Addended by: JASON PARADA on: 09/15/2024 02:44 PM Modules accepted: Orders [facility] 2024-09-14 15:10:00 Last Refilled: Disp Refills Start End ELAINE ALBUTEROL 90 mcg/actuation inhaler 8.5 g 0 08/18/2024 -- No Sig: INHALE 2 PUFFS BY MOUTH EVERY 6 HOURS NEEDED FOR WHEEZING OR SHORTNESS OF BREATH Sent to pharmacy as: ALBUTEROL 90 mcg/actuation inhaler Class: eRX Route: Inhalation Order: [id number] Date/Time Signed: 08/18/2024 07:39 E-Prescribing Status: Receipt confirmed by pharmacy (08/18/2024 7:39 AM CDT) Notes: Recent Visits Date Type Provider Dept 07/04/24 Office Visit Kathleen Marie, FREIGHT BOOKER [facility] 06/08/24 Office Visit Jada Bill, FREIGHT BOOKER [facility] 05/27/24 Office Visit Jada Bill, FREIGHT BOOKER [facility] 02/22/24 Office Visit Jada Bill, FREIGHT BOOKER [facility] 09/16/23 Office Visit Jada Bill, FREIGHT BOOKER [facility] 06/02/23 Office Visit Jada Bill, FREIGHT BOOKER [facility] 04/03/23 Office Visit Jada Bill, FREIGHT BOOKER [facility] Showing recent visits within past 540 days with a meds authorizing provider and meeting all other requirements Future Appointments Date Type Provider Dept 09/21/24 Appointment Jada Bill, FREIGHT BOOKER [facility] Showing future appointments within next 150 days with a meds authorizing provider and meeting all other requirements Andria Steward RN [facility] 2024-09-14 12:00:00 Images from the original note were not included. Venipuncture collection performed by clean technique on the left anticubitus. Total of 1 attempts were made. Slight pressure and a bandage/dressing were applied to the site(s). The patient experienced no complications. The following specimens were processed according to instructions and sent to [facility] laboratories per lab order on 09/14/2024: LT BLUE SST 1 RED LAV 1 PPT DK GREEN (LiHep) DK GREEN (SodH) FAUSTIN DK BLUE (K2) DK BLUE (S) ACD Blood Culture NIPT/NTD [facility] 2024-09-08 14:43:58 Patient has been scheduled. Thank you. Terrie Gomez [facility] 2024-09-08 10:19:39 Luis faxed need for replacement Rx for pap. Patient last seen .. Will have PSSs assist with call for appt. Daughter informed. GREEK speaking. Venkata Oconnor MA [facility] 2024-08-29 09:00:00 Images from the original note were not included. Venipuncture collection performed by clean technique on the left anticubitus. Total of 1 attempts were made. Slight pressure and a bandage/dressing were applied to the site(s). The patient experienced no complications. The following specimens were processed according to instructions and sent to [facility] laboratories per lab order on 08/29/2024 : LT BLUE SST 1 RED LAV 2 PPT 1 DK GREEN (LiHep) DK GREEN (SodH) FAUSTIN DK BLUE (K2) DK BLUE (S) ACD Blood Culture NIPT/NTD Patient has been identified by and name and was provided with cup, antiseptic towelette, and clean catch instructions. 2 urine specimen(s) sent. Unpreserved 2 Urine Culture Aptima tube Other urine [facility] 2024-08-26 13:13:50 Last Refilled: Disp Refills Start End ELAINE MONTELUKAST 10 mg tablet 90 tablet 0 03/07/2024 -- No Sig: TAKE 1 TABLET BY MOUTH EVERY EVENING Sent to pharmacy as: montelukast 10 mg tablet (SINGULAIR) Class: eRX Route: Oral Order: [id number] Date/Time Signed: 03/07/2024 08:26 E-Prescribing Status: Receipt confirmed by pharmacy (03/07/2024 8:27 AM CDT) Recent Visits Date Type Provider Dept 07/04/24 Office Visit Kathleen Marie FNP [facility] 06/08/24 Office Visit Jada Bill FNP [facility] 05/27/24 Office Visit Jada Bill FNP [facility] 02/22/24 Office Visit Jada Bill FNP [facility] 09/16/23 Office Visit Jada Bill FNP [facility] 06/02/23 Office Visit Jada Bill FNP [facility] 04/03/23 Office Visit Jada Bill FNP [facility] Showing recent visits within past 540 days with a meds authorizing provider and meeting all other requirements Future Appointments Date Type Provider Dept 09/12/24 Appointment Jada Bill FNP [facility] Showing future appointments within next 150 days with a meds authorizing provider and meeting all other requirements [facility] 2024-08-26 10:02:05 Images from the original note were not included. Name from pharmacy: GLIPIZIDE ER 2.5MG TABLETS Will file in chart as: GLIPIZIDE XL 2.5 mg 24 hr tablet Sig: Take 1 tablet by mouth daily with breakfast. 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 disease, without long-term current use of insulin, unspecified CKD stage Last ordered: 6 months ago (02/23/2024) by JENNIFER Luna Last refill: 05/24/2024 Rx #: [id number]|1 Endocrinology: Diabetes - Sulfonylureas Ufradb2808/25/2024 08:57 PM Protocol Details Cr in normal range and within 360 days Valid encounter within last 12 months HBA1C within 180 days To be filled at: [facility][id number] - [place] [address] [address] [facility] [address] Please review and refill if appropriate Recent Visits Date Type Provider Dept 07/04/24 Office Visit Kathleen Marie FNP [facility] 06/08/24 Office Visit Jada Bill FNP [facility] 05/27/24 Office Visit Jada Bill, FREIGHT BOOKER [facility] 02/22/24 Office Visit Jada Bill, FREIGHT BOOKER [facility] 09/16/23 Office Visit Jada Bill, FREIGHT BOOKER [facility] 06/02/23 Office Visit Jada Bill, FREIGHT BOOKER [facility] 04/03/23 Office Visit Jada Bill, FREIGHT BOOKER [facility] Showing recent visits within past 540 days with a meds authorizing provider and meeting all other requirements Future Appointments Date Type Provider Dept 09/12/24 Appointment Jada Bill, FREIGHT BOOK[facility] Showing future appointments within next 150 days with a meds authorizing provider and meeting all other requirements Dianna Danielson MA [facility] 2024-08-26 09:28:49 Refill request for incruse received. Refill sent to pharmacy of choice. Patient is compliant as per [facility] pulmonary Protocol. Venkata Oconnor MA [facility] 2024-08-24 13:53:02 Encounter opened to update standing lab orders. Allosure orders updated as well [facility] 2024-08-23 09:32:35 Called [facility] pharmacy. 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 Pharmacist states he talked to patient yesterday and let her know she had refills available. Closing encounter. Kaylee Lopes RN [facility] 2024-08-23 07:01:47 Last Refilled: Disp Refills Start End ELAINE Blood-Glucose Meter (GLUCOCARD SHINE METER) Misc 1 Each 0 06/08/2024 -- -- Sig: Use as directed Sent to pharmacy as: blood-glucose meter (Glucocard Shine Meter) Class: eRX Order: [id number] Date/Time Signed: 06/08/2024 16:19 E-Prescribing Status: Receipt confirmed by pharmacy (06/08/2024 4:19 PM CDT) Other Panel Orders Notes: Recent Visits Date Type Provider Dept 07/04/24 Office Visit Kathleen Marie, FREIGHT BOOKER [facility] 06/08/24 Office Visit Jada Bill, FREIGHT BOOKER [facility] 05/27/24 Office Visit Jada Bill, FREIGHT BOOKER [facility] 02/22/24 Office Visit Jada Bill, FREIGHT BOOKER [facility] 09/16/23 Office Visit Jada Bill, FREIGHT BOOKER [facility] 06/02/23 Office Visit Jada Bill, [facility] 04/03/23 Office Visit Jada Bill, [facility] Showing recent visits within past 540 days with a meds authorizing provider and meeting all other requirements Future Appointments Date Type Provider Dept 09/12/24 Appointment Jada Bill [facility] Showing future appointments within next 150 days with a meds authorizing provider and meeting all other requirements Andria Steward RN [facility] 2024-08-22 10:10:30 Routed to provider for assistance. [facility] 2024-08-18 07:38:23 Last Refilled: Disp Refills Start End ELAINE ALBUTEROL 90 mcg/actuation inhaler 8.5 g 0 07/21/2024 -- No Sig: INHALE 2 PUFFS BY MOUTH EVERY 6 HOURS NEEDED FOR WHEEZING OR SHORTNESS OF BREATH Sent to pharmacy as: ALBUTEROL 90 mcg/actuation inhaler Class: eRX Route: Inhalation Order: [id number] Date/Time Signed: 07/21/2024 08:36 E-Prescribing Status: Receipt confirmed by pharmacy (07/21/2024 8:36 AM CDT) Recent Visits Date Type Provider Dept 07/04/24 Office Visit Kathleen Marie FNP [facility] 06/08/24 Office Visit Jada Bill FNP [facility] 05/27/24 Office Visit Jada Bill, FREIGHT BOOKER [facility] 02/22/24 Office Visit LandyJeaneie, FREIGHT BOOKER [facility] 09/16/23 Office Visit Jada Bill FREIGHT BOOKER [facility] 06/02/23 Office Visit Jada Bill, FREIGHT BOOKER [facility] 04/03/23 Office Visit ZohrehJeane aguilaie, FREIGHT BOOKER [facility] Showing recent visits within past 540 days with a meds authorizing provider and meeting all other requirements Future Appointments Date Type Provider Dept 09/12/24 Appointment Landy MONTSE EliasP [facility] Showing future appointments within next 150 days with a meds authorizing provider and meeting all other requirements Leslie Bear [facility] 2024-07-28 10:46:52 Pt received Prolia @ Infusion Center 07/08/2024. Closing encounter Kaylee Lopes RN [facility] 2024-07-13 13:45:49 Please review and advise. Shantal Everett RN [facility] 2024-07-08 13:47:00 This is what I said about the labs UA and culture unremarkable- NO need for another round of antibiotics unless she has symptoms. See result notes. [facility] 2024-07-06 13:11:57 Duplicate encounters. See encounter 06/23/24. Closing this encounter. Leatha Hernandez SECURITY SALES MANAGER [facility] 2024-07-06 08:51:48 Please review and advise. Advise if labs are needed and please provide written order for Prolia. Ella Rod SECURITY SALES MANAGER [facility] 2024-07-04 16:37:51 Please disregard encounter duplicate encounter Frances Baptiste [facility] 2024-07-04 16:21:57 Patient has appt with Kathleen Marie today 07/04/2024 at 430pm Vanessa Espino MA [facility] 2024-07-04 09:54:13 Taylor Garcia is a 69 year old female and daughter Mya is calling asking if the pt can get a return call due to right hip pain. They believe it might be a side effect from the medication pt was prescribed by . Sherrie Guajardo [facility] 2024-07-04 01:05:00 Patient without adverse reactions to medication, patient daughter provided with discharge instructions to patient in vietnamese. Daughter confirms pharmacy and verbalizes understanding to obtain medication for patient arthritic / chronic hip pain. Patient released from ed via wc with family [facility] 2024-07-04 00:54:13 Provider at chair side. [facility] 2024-07-04 00:50:00 Patient and family instructed on medication - denies allergy to medication. Patient denies s/sx complaications of muscle relaxer given prior. 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 Patient denies fall or injury. Patient reports took tylenol 2 hours ago, helps some. [facility] Vidhi Garcia RN [facility] 2024-07-03 22:44:24 Called for patient in bathroom at this time [facility] 2024-07-01 13:50:50 Images from the original note were not included. Notes: 07/01/24 Last Refilled: [facility] #[id number] [place] [address] [address] [facility] OF [address] Recent Visits Date Type Provider Dept 06/08/24 Office Visit Jada Bill, FREIGHT BOOKER [facility] 05/27/24 Office Visit Jada Bill, FREIGHT BOOKER [facility] 02/22/24 Office Visit Jada Bill, FREIGHT BOOKER [facility] 09/16/23 Office Visit Jada Bill, FREIGHT BOOKER [facility] 06/02/23 Office Visit Jada Bill, FREIGHT BOOKER [facility] 04/03/23 Office Visit Jada Bill, FREIGHT BOOKER [facility] 01/27/23 Office Visit Jada Bill, FREIGHT BOOKER [facility] Showing recent visits within past 540 days with a meds authorizing provider and meeting all other requirements Today's Visits Date Type Provider Dept 07/01/24 Appointment Jada Bill FNP [facility] Showing today's visits with a meds authorizing provider and meeting all other requirements Future Appointments Date Type Provider Dept 07/11/24 Appointment Jada Bill FNP [facility] 07/13/24 Appointment Jada Bill FREIGHT BOOKER [facility] Showing future appointments within next 150 days with a meds authorizing provider and meeting all other requirements Name from pharmacy: FAMOTIDINE 20MG TABLETS Will file in chart as: FAMOTIDINE 20 mg tablet Possible duplicate: Michael to review recent actions on this medication Sig: TAKE 1 TABLET BY MOUTH TWICE DAILY Disp: 180 tablet Refills: Not specified Start: 07/01/2024 Class: eRX For: Gastroesophageal reflux disease without esophagitis To pharmacy: Patient requests 90 days supply Last ordered: Today (07/01/2024) by JENNIFRE Luna Last refill: 07/01/2024 Rx #: [id number]|0|1 Gastroenterology: Antiulcer - H2 Antagonists Sbdplt0707/01/2024 01:10 PM Protocol Details Cr in normal range and within 360 days Valid encounter within last 12 months eGFR in normal range and within 360 days To be filled at: [facility][id number] - [place], [place] - [address] AT [facility] OF & [facility] 2024-06-30 15:41:34 Taylor Garcia is a 69 year old female Marvin Tashap[employer] calling for need last visit chart notes, labs and a written Rx for the Prolia. Please advise [phone] Cody Nelson [facility] 2024-06-30 15:09:49 Spoke with [facility], pt does not qualify for copay assistance at this time. We have also not heard from Dr Nava regarding if it is medically necessary to do infusion without copay collected. At this time pt is being rescheduled due to not feeling well and also unable to make copay for visit. Next appt is for 07/08. Please advise Arthur Merritt [facility] 2024-06-30 09:18:03 Images from the original note were not included. Cr no tin range Notes: 03/25/24, 03/21/24 Last Refilled: [facility] #[id number] - [place], [place] - [address] AT [facility] OF [address] Recent Visits Date Type Provider Dept 06/08/24 Office Visit Jada Bill FNP [facility] 05/27/24 Office Visit Jada Bill FNP [facility] 02/22/24 Office Visit Jada Bill FNP [facility] 09/16/23 Office Visit Jada Bill FNP [facility] 06/02/23 Office Visit Jada Bill FNP [facility] 04/03/23 Office Visit Jada Bill FREIGHT BOOKER [facility] 01/27/23 Office Visit Landy JENNIFER Elias [facility] Showing recent visits within past 540 days with a meds authorizing provider and meeting all other requirements Future Appointments Date Type Provider Dept 07/01/24 Appointment Jada Bill FNP [facility] 07/11/24 Appointment Jada Bill FNP [facility] 07/13/24 Appointment Jada Bill FNP [facility] Showing future appointments within next 150 days with a meds authorizing provider and meeting all other requirements Name from pharmacy: FAMOTIDINE 20MG TABLETS Will file in chart as: FAMOTIDINE 20 mg tablet Sig: TAKE 1 TABLET BY MOUTH TWICE DAILY Disp: 60 tablet Refills: 1 (Pharmacy requested: Not specified) Start: 06/29/2024 Class: eRX For: Gastroesophageal reflux disease without esophagitis Last ordered: 3 months ago (03/25/2024) by JENNIFER Luna Last refill: 04/26/2024 Rx #: [id number]|1|0|1 Gastroenterology: Antiulcer - H2 Antagonists Zwqszx4606/29/2024 01:17 PM Protocol Details Cr in normal range and within 360 days Valid encounter within last 12 months eGFR in normal range and within 360 days Name from pharmacy: OMEPRAZOLE 20MG CAPSULES Will file in chart as: OMEPRAZOLE 20 mg capsule Sig: TAKE 1 CAPSULE BY MOUTH DAILY Disp: 90 capsule Refills: 0 (Pharmacy requested: Not specified) Start: 06/29/2024 Class: eRX For: Gastroesophageal reflux disease without esophagitis Last ordered: 3 months ago (03/21/2024) by JENNIFER Luna Last refill: 03/21/2024 Rx #: [id number]|1|0|1 Gastroenterology: Antiulcer - Proton Pump Inhibitors Tienms4306/29/2024 01:17 PM Protocol Details Valid encounter within last 12 months To be filled at: [facility] #[id number] - [place] [address] [address] [facility] OF [address] [facility] 2024-06-27 12:07:24 Taylor Garcia is a 69 year old female Cely with [employer] is calling stating she need last visit chart notes, labs and a written Rx for the Prolia. Please advise [phone] Sandra Cabrera [facility] 2024-06-24 19:15:21 [facility] Kristin Calling She states Pt wants a new Rx Prolia 60 mg . They will need Charts notes, labs and icd code, verify delivery address Please call her [phone] ext [phone] Nydia Phillips [facility] 2024-06-24 14:59:31 Taylor Garcia is a 69 year old female Beba with [employer] calling to inform she will be faxing a form today to request notes and rx. Please advise Ary Zuniga [facility] 2024-06-24 09:38:33 Outpatient infusion clinic cannot administer meds that are shipped to patient, We will reach out to [facility] and pharmacy to determine if he qualifies for any additional assistance. Shirley Cooley RN [facility] 2024-06-24 08:00:00 Forwarded to Nursing Motors Assembler and Infusion Nurse [facility] 2024-06-23 15:30:52 Last Refilled: Disp Refills Start End ELAINE PNV,calcium 74-ghxj-ldjbq acid (WESTAB PLUS) 27 mg iron- 1 mg tablet 30 tablet 1 09/22/2023 -- No Sig: TAKE 1 TABLET BY MOUTH EVERY MORNING Sent to pharmacy as: WesTab Plus 27 mg iron-1 mg tablet (PNV,calcium 30-kmil-kkoio acid) Class: eRX Route: Oral Order: [id number] Date/Time Signed: 09/22/2023 08:46 E-Prescribing Status: Receipt confirmed by pharmacy (09/22/2023 8:46 AM CDT) Recent Visits Date Type Provider Dept 06/08/24 Office Visit Jada Bill, FREIGHT BOOKER [facility] 05/27/24 Office Visit Jada Bill FREIGHT BOOKER [facility] 03/07/24 Office Visit Gwen Bhakta MD [facility] Jenkins Nephrol 02/22/24 Office Visit Jada Bill FREIGHT BOOKER [facility] 09/16/23 Office Visit Jada Bill, FREIGHT BOOKER [facility] 08/20/23 [facility] [place] [facility] Nephrol 06/02/23 Office Visit Jada Bill FREIGHT BOOKER [facility] 04/03/23 Office Visit Jada Bill, FREIGHT BOOKER [facility] 02/18/23 Office Visit [facility] [place] Jenikns Nephrol 01/27/23 Office Visit Jada Bill FNP [facility] Showing recent visits within past 540 days with a meds authorizing provider and meeting all other requirements Future Appointments Date Type Provider Dept 06/27/24 Appointment Jada Bill FNP [facility] 07/11/24 Appointment Jada Bill FREIGHT BOOKER [facility] Showing future appointments within next 150 days with a meds authorizing provider and meeting all other requirements Leslie Bear [facility] 2024-06-23 15:22:54 Duplicate request please see encounter 06/23/2024 Emelina Garcia MA [facility] 2024-06-23 15:21:15 Routing to infusion nurse. Please review and advise. Emelina Garcia MA [facility] 2024-06-23 13:52:06 Requested Prescriptions Pending Prescriptions Disp Refills PNV,calcium 65-bswv-fxgff acid (WESTAB PLUS) 27 mg iron- 1 mg tablet 30 tablet 1 Sig: Take 1 tablet by mouth every morning. Routing to ordering provider. ERMA ALLAN RN 06/23/2024 1:52 PM Erma Allan RN [facility] 2024-06-23 12:30:00 Taylor Garcia is a 69 year old female Daughter of patient calling again about this issue. Pharmacy is stating they have not heard any message back. Pt also message Dr. Nava through [employer] Delmer Genao [facility] 2024-06-23 11:39:03 Taylor Garcia is a 69 year old female Marvin with [facility] is calling asking if they can send medication directly to the clinic, please advise. [phone] [phone] [phone] Cody Nelson [facility] 2024-06-23 11:09:26 Images from the original note were not included. Notes: 05/24/24 Last Refilled: [facility] #[id number] - [place], [place] - [address] OF [address] Recent Visits Date Type Provider Dept 06/08/24 Office Visit Jada Bill, FREIGHT BOOKER [facility] 05/27/24 Office Visit Jada Bill, FREIGHT BOOKER [facility] 02/22/24 Office Visit Jada Bill, JENNIFER [facility] 09/16/23 Office Visit Jada Bill, FREIGHT BOOKER [facility] 06/02/23 Office Visit Jada Bill, FREIGHT BOOKER [facility] 04/03/23 Office Visit Jada Bill, FREIGHT BOOKER [facility] 01/27/23 Office Visit Jada Bill FNP [facility] Showing recent visits within past 540 days with a meds authorizing provider and meeting all other requirements Future Appointments Date Type Provider Dept 06/27/24 Appointment Jada Bill FNP [facility] 07/11/24 Appointment Jada Bill FNP [facility] Showing future appointments within next 150 days with a meds authorizing provider and meeting all other requirements Name from pharmacy: ALBUTEROL HFA INH (200 PUFFS) 8.5GM Will file in chart as: ALBUTEROL 90 mcg/actuation inhaler Sig: INHALE 2 PUFFS BY MOUTH EVERY 6 HOURS NEEDED FOR WHEEZING OR SHORTNESS OF BREATH Disp: 8.5 g Refills: 0 (Pharmacy requested: Not specified) Start: 06/23/2024 Class: eRX For: Subacute cough, SOB (shortness of breath) Last ordered: 1 month ago (05/24/2024) by JENNIFER Luna Last refill: 05/24/2024 Rx #: [id number]|1|0|1 Pulmonology & Allergy: Beta Agonists and Anti-muscarinics Vgllwd0006/23/2024 03:47 AM Protocol Details Manual Review: If patient not on inhaled steroid and using bronchodilator more than twice weekly for more than 4 weeks or is having a night cough patient should be seen immediately. Manual Review: Staff refilling for allergy - 1 month supply only unless insurance requires a 3 month supply, then 3 month supply approved. Valid encounter within last 12 months To be filled at: [facility][id number] [facility] [address] [facility] OF [address] [facility] 2024-06-22 17:18:19 Discussed with the patient's daughter on phone. Instructed to increase the lantus dose to 15 units daily. IM-ENDOCRINOLOGY,DIABE WILLIAM & METABOLISM [facility] 2024-06-22 17:11:28 Please contact the infusion center regarding this IM-ENDOCRINOLOGY,DIABE WILLIAM & METABOLISM [facility] 2024-06-22 13:42:33 Please review and advise. Shantal Everett RN [facility] 2024-06-22 13:03:24 Please review and advise. Shantal Everett RN [facility] 2024-06-21 11:41:47 Taylor Garcia is a 69 year old female Pt's daughter is calling regarding the pt's BS. She sent a my chart message on 06/17 and hasn't had a response. She states her BS is between 500-550 during the day and in the a.m. it's 300. Please call Verna Robledo [facility] 2024-06-21 10:55:59 Brittaney from [facility] is calling to see if the office will accept delivery of the patients prolia. They are also requesting an RX and chart notes. Please advise Brittaney [phone] Verna Robledo [facility] 2024-06-13 13:56:46 Refilled myfortic as Brand as requested by the pt in a my chart message. [facility] 2024-06-13 10:41:43 Taylor Garcia is a 69 year old female pt daughter calling about PT mycophenolate sodium (MYFORTIC) 180 mg EC tablet, we sent a RX for the generic they are asking only for the civil engineering project designer type to be prescribed, please advise. Mingo [facility] - [place], [place] - [facility] [address] AT [address] [facility] [address] [facility] [address] [facility] [address] [facility] [id number] Cody Nelson [facility] 2024-06-13 08:54:06 Images from the original note were not included. Notes: 06/08/24 Last Refilled: [facility] #[id number] - [place], [place] - [facility] [place] [address] AT [facility] OF [address] Recent Visits Date Type Provider Dept 06/08/24 Office Visit Jada Bill FNP [facility] 05/27/24 Office Visit Jada Bill FNP [facility] 02/22/24 Office Visit Jada Bill FNP [facility] 09/16/23 Office Visit Jada Bill FNP [facility] 06/02/23 Office Visit Jada Bill FNP [facility] 04/03/23 Office Visit Jada Bill FNP [facility] 01/27/23 Office Visit Jada Bill FNP [facility]Dereck [facility] Showing recent visits within past 540 days with a meds authorizing provider and meeting all other requirements Future Appointments Date Type Provider Dept 06/27/24 Appointment Jada Bill FNP [facility] 07/11/24 Appointment Jada Bill FNP [facility]Dereck [facility] Showing future appointments within next 150 days with a meds authorizing provider and meeting all other requirements Name from pharmacy: ONE TOUCH DELICA PLUS 33G LANCETS Will file in chart as: ONETOUCH DELICA PLUS LANCET 33 gauge Misc Possible duplicate: Hover to review recent actions on this medication Sig: CHECK FASTING BLOOD SUGAR DAILY Disp: 100 Each Refills: Not specified Start: 06/11/2024 Class: eRX Non-formulary For: Controlled type 2 diabetes mellitus with chronic kidney disease, without long-term current use of insulin, unspecified CKD stage To pharmacy: ZERO refills remain on this prescription. Your patient is requesting advance approval of refills for this medication to PREVENT ANY MISSED DOSES Last ordered: 5 days ago (06/08/2024) by JENNIFER Luna Last refill: 06/08/2024 Rx #: [id number]|1|0|1 To be filled at: [facility] #[id number] [place] [address] [address] [facility] OF [address] [facility] 2024-06-13 08:25:40 How is she today, does she still need a different antibiotic. [facility] 08:24:46 Repeat cmp in 1 week, start insulin as prescribed see endocrine , follow up with me as discussed [facility] 2024-06-09 16:44:44 Pt discharged to home. Discharge instructions given to pt regarding prescription usage, management of condition and instructions to follow up with PCP. Pt verbalized understanding. PIV removed without complications. Patient in possession of all belongings. Pt to lobby via wheelchair. Monique Izaguirre RN [facility] 2024-06-09 16:01:09 Taylor Garcia is a 69 year old female presents to ED 137 aox4 and ambulatory for cc of hyperglycemia x 2 weeks. Pt is compliant with diabetic medication. Per patient when her blood sugar increases, blurry vision, dizziness, SOB and fatigue. Pt denies having those symptoms currently. Pt also has hx of HTN and osteoporosis. No signs of distress noted. Pt placed on cafeteria monitor. T [facility] 2024-06-09 14:15:53 Pt to xray via stretcher T [facility] 2024-06-09 13:19:02 Taylor Garcia is a 69 year old female presents to ED accompanied by daughter c/o hyperglycemia x 2-3 weeks. Reports was seen at clinic yesterday for labs and told to come here today. Per chart review, BGL 624. Pt is aox4 with gcs 15 skin warm and dry resp even and unlabored. NAD noted. Pt to room for eval. Radha Arboleda RN [facility] 2024-06-08 16:30:00 Images from the original note were not included. Venipuncture collection performed by clean technique on the left anticubitus. Total of 1 attempts were made. Slight pressure and a bandage/dressing were applied to the site(s). The patient experienced no complications. The following specimens were processed according to instructions and sent to [facility] laboratories per lab order on TODAY: LT BLUE SST RED LAV 2 PPT LT GREEN (LiHep) 1 DK GREEN (SodH) FAUSTIN DK BLUE (K2) DK BLUE (S) ACD Blood Culture NIPT/NTD Patient has been identified by name and was provided with cup, antiseptic towelette, and clean catch instructions. 1 urine specimen(s) sent. Unpreserved Urine Culture Aptima tube Other urine microalbumin T [facility] 2024-06-07 13:31:33 VIJI 03/07/24 OCT 02 T [facility] 2024-06-06 10:26:46 [facility] standing lab orders placed. Called pt to notify her. Notified pt via telephone. T [facility] 2024-06-06 09:03:58 Taylor Garcia is a 69 year old female Mya pts daughter is calling to request lab orders, Pt states, lab does not have orders placed, Pt is currently waiting at the [facility], Please advise Leatha Ricketts [facility] 2024-06-06 09:00:00 Images from the original note were not included. Venipuncture collection performed by clean technique on the right anticubitus. Total of 1 attempts were made. Slight pressure and a bandage/dressing were applied to the site(s). The patient experienced no complications. The following specimens were processed according to instructions and sent to [facility] laboratories per lab order on 06/06/2024 : LT BLUE SST RED LAV 1 PPT DK GREEN (LiHep) DK GREEN (SodH) FAUSTIN DK BLUE (K2) DK BLUE (S) ACD Blood Culture NIPT/NTD [facility] 2024-05-31 09:03:00 Refill request for Requested Prescriptions Pending Prescriptions Disp Refills INCRUSE ELLIPTA 62.5 mcg/actuation DsDv [Pharmacy Med Name: INCRUSE ELLIPTA 62.5MCG ORAL INH 30] 30 Each 11 Sig: INHALE 1 PUFF BY MOUTH DAILY VIJI Sep not scheduled 1. Mild persistent asthma without complication J45.30 2. Lung nodule R91.1 3. SURAJ (obstructive sleep apnea) G47.33 Plan: Will continue with current asthma management Will get repeat CT scan around January 2024 Patient is compliant and deriving benefit, will send in prescription for new CPAP supplies Enedelia Reinoso RN [facility] 2024-05-24 13:59:16 VIJI 03/07/24 NOV 09/05/24 Suha Meneses RN [facility] 2024-05-24 07:28:49 Last Refilled: Disp Refills Start End ELAINE ALBUTEROL 90 mcg/actuation inhaler 8.5 g 0 05/02/2024 -- No Sig: INHALE 2 PUFFS BY MOUTH EVERY 6 HOURS NEEDED FOR WHEEZING OR SHORTNESS OF BREATH Sent to pharmacy as: ALBUTEROL 90 mcg/actuation inhaler Class: eRX Route: Inhalation Order: [id number] Date/Time Signed: 05/02/2024 15:52 E-Prescribing Status: Receipt confirmed by pharmacy (05/02/2024 3:52 PM CDT) Notes: Recent Visits Date Type Provider Dept 02/22/24 Office Visit Jada Bill FNP [facility] 09/16/23 Office Visit Jada Bill FNP [facility] 06/02/23 Office Visit Jada Bill FNP [facility] 04/03/23 Office Visit Jada Bill FNP [facility] 01/27/23 Office Visit Jada Bill FNP [facility] Showing recent visits within past 540 days with a meds authorizing provider and meeting all other requirements Future Appointments Date Type Provider Dept 06/27/24 Appointment Jada Bill FNP [facility] Showing future appointments within next 150 days with a meds authorizing provider and meeting all other requirements Andria Steward RN [facility] 2024 08:24:58 Annual Wellness Visit - Pre Visit Outreach Patient name: Taylor Garcia Patient First outreach attempt regarding Annual Wellness Visit. Call outcome: Sent by mail and [employer] HRA outcome: HRA sent by mail and [email or web address] Future Appointments Provider Department Dept Phone 05/18/2024 4:40 PM Jessy Lemon DNP [facility] [phone] 05/23/2024 4:00 PM Jada Bill FNP [facility] Family Medicine, [facility] [phone] 06/06/2024 9:00 AM Lab, [facility] [facility] [phone] 06/10/2024 3:30 PM Justin Nava MD [facility] Endocrinology, [facility] [phone] 08/29/2024 9:00 AM Lab, [facility] Clinical Laboratory, [facility] [phone] 09/05/2024 3:30 PM Transplant, Kidney Medicine [facility] Transplant Services, [facility] [phone] Valeri Kendrick MA [facility] 2024-05-02 15:34:37 Images from the original note were not included. Notes: 04/08/24 Last Refilled: [facility][id number] - [facility] [address] AT [facility] & Recent Visits Date Type Provider Dept 02/22/24 Office Visit Jada Bill, JENNIFER [facility] 09/16/23 Office Visit Jada Bill FNP [facility] 06/02/23 Office Visit Jada Bill FNP [facility] 04/03/23 Office Visit Jada Bill FNP [facility] 01/27/23 Office Visit Jada Bill FNP [facility] Showing recent visits within past 540 days with a meds authorizing provider and meeting all other requirements Future Appointments Date Type Provider Dept 05/23/24 Appointment Jada Bill FNP [facility] Showing future appointments within next 150 days with a meds authorizing provider and meeting all other requirements Name from pharmacy: ALBUTEROL HFA INH (200 PUFFS) 8.5GM Will file in chart as: ALBUTEROL 90 mcg/actuation inhaler Sig: INHALE 2 PUFFS BY MOUTH EVERY 6 HOURS NEEDED FOR WHEEZING OR SHORTNESS OF BREATH Disp: 8.5 g Refills: 0 (Pharmacy requested: Not specified) Start: 05/01/2024 Class: eRX For: Subacute cough, SOB (shortness of breath) Last ordered: 3 weeks ago (04/08/2024) by JENNIFER Luna Last refill: 04/08/2024 Rx #: [id number]|0|1 Pulmonology & Allergy: Beta Agonists and Anti-muscarinics Rjdcei1705/01/2024 11:58 AM Protocol Details Manual Review: If patient not on inhaled steroid and using bronchodilator more than twice weekly for more than 4 weeks or is having a night cough patient should be seen immediately. Manual Review: Staff refilling for allergy - 1 month supply only unless insurance requires a 3 month supply, then 3 month supply approved. Valid encounter within last 12 months To be filled at: [facility] #[id number] - [facility] [address] AT [facility] OF & T [facility] 2024-04-07 07:59:58 Images from the original note were not included. Name from pharmacy: ALBUTEROL HFA INH (200 PUFFS) 8.5GM Will file in chart as: ALBUTEROL 90 mcg/actuation inhaler Sig: INHALE 2 PUFFS BY MOUTH EVERY 6 HOURS NEEDED FOR WHEEZING OR SHORTNESS OF BREATH Disp: 8.5 g Refills: 0 (Pharmacy requested: Not specified) Start: 04/07/2024 Class: eRX For: Subacute cough, SOB (shortness of breath) Last ordered: 3 weeks ago (03/11/2024) by JENNIFER Luna Last refill: 03/11/2024 Rx #: [id number]|0|1 Pulmonology & Allergy: Beta Agonists and Anti-muscarinics Xraivc7404/07/2024 03:41 AM Protocol Details Manual Review: If patient not on inhaled steroid and using bronchodilator more than twice weekly for more than 4 weeks or is having a night cough patient should be seen immediately. Manual Review: Staff refilling for allergy - 1 month supply only unless insurance requires a 3 month supply, then 3 month supply approved. Valid encounter within last 12 months To be filled at: [facility] #[id number] - [place] [address] [address] [facility] OF & Recent Visits Date Type Provider Dept 02/22/24 Office Visit Jada Bill FNP [facility] 09/16/23 Office Visit Jada Bill FNP [facility] 06/02/23 Office Visit Jada Bill FNP [facility] 04/03/23 Office Visit Jada Bill FNP [facility] 01/27/23 Office Visit Jada Bill FNP [facility] Showing recent visits within past 540 days with a meds authorizing provider and meeting all other requirements Future Appointments Date Type Provider Dept 05/23/24 Appointment Jada Bill FNP [facility] Showing future appointments within next 150 days with a meds authorizing provider and meeting all other requirements Ynes Tyler LVN [facility] 2024-03-25 15:41:08 VIJI 03/07OCT 02 Suha Meneses RN [facility] 2024-03-21 09:11:03 Images from the original note were not included. Notes: 12/21/23 Last Refilled: [facility] #[id number] [place] [address] [address] [facility] OF [address] Recent Visits Date Type Provider Dept 02/22/24 Office Visit Jada Bill FNP [facility] 09/16/23 Office Visit Jada Bill FNP [facility] 06/02/23 Office Visit Jada Bill FNP [facility] 04/03/23 Office Visit Jada Bill FNP [facility] 01/27/23 Office Visit Jada Bill FNP [facility] Showing recent visits within past 540 days with a meds authorizing provider and meeting all other requirements Future Appointments Date Type Provider Dept 05/23/24 Appointment Jada Bill FNP [facility] Showing future appointments within next 150 days with a meds authorizing provider and meeting all other requirements Name from pharmacy: OMEPRAZOLE 20MG CAPSULES Will file in chart as: OMEPRAZOLE 20 mg capsule Sig: TAKE 1 CAPSULE BY MOUTH DAILY Disp: 90 capsule Refills: 0 (Pharmacy requested: Not specified) Start: 03/19/2024 Class: eRX For: Gastroesophageal reflux disease without esophagitis Last ordered: 3 months ago (12/21/2023) by JENNIFER Luna Last refill: 12/21/2023 Rx #: [id number]|1|0|1 Gastroenterology: Antiulcer - Proton Pump Inhibitors Aksdxs3803/19/2024 01:28 PM Protocol Details Valid encounter within last 12 months To be filled at: [facility] #[id number] - [place], [place] - [address] AT [facility] OF & OS [facility] 2024-03-16 09:53:52 VIJI 03/07/24 NOV 09/05/24 [facility] 2024-03-14 08:30:21 Images from the original note were not included. Notes: 09/22/23 Last Refilled: [facility] #[id number] - [place], [place] - [address] AT [facility] OF & POCT HBA1C (%) Date Value 08/25/2014 5.6 02/10/2014 5.6 Recent Visits Date Type Provider Dept 03/07/24 Office [facility] 02/22/24 Office Visit Jada Bill FNP [facility] 09/16/23 Office Visit Jada Bill FNP [facility] 08/20/23 Office Visit A[facility] 06/02/23 Office Visit Jada Bill FNP [facility] 04/03/23 Office Visit Jada Bill FNP [facility] 02/18/23 [facility] [place] [facility] 01/27/23 Office Visit Jada Bill FNP [facility] Showing recent visits within past 540 days with a meds authorizing provider and meeting all other requirements Future Appointments Date Type Provider Dept 05/23/24 Appointment Jada Bill FNP [facility] Showing future appointments within next 150 days with a meds authorizing provider and meeting all other requirements Name from pharmacy: GLIPIZIDE 10MG TABLETS Will file in chart as: GLIPIZIDE 10 mg tablet Possible duplicate: Michael to review recent actions on this medication Sig: TAKE 1 TABLET BY MOUTH TWICE DAILY BEFORE BREAKFAST AND DINNER Disp: 180 tablet Refills: 1 (Pharmacy requested: Not specified) Start: 03/14/2024 Class: eRX For: Controlled type 2 diabetes mellitus with chronic kidney disease, without long-term current use of insulin, unspecified CKD stage Last ordered: 5 months ago (09/22/2023) by JENNIFER Luna Last refill: 12/15/2023 Rx #: [id number]|1|0|1 To be filled at: [facility] #[id number] - [place] [address] [address] [facility] OF [address] [facility] 2024-03-11 13:28:48 Images from the original note were not included. Requested Renewals Name from pharmacy: ALBUTEROL HFA INH (200 PUFFS) 8.5GM Will file in chart as: ALBUTEROL 90 mcg/actuation inhaler Sig: INHALE 2 PUFFS EVERY 6 HOURS NEEDED FOR WHEEZING OR SHORTNESS OF BREATH. Disp: 8.5 g Refills: 0 (Pharmacy requested: Not specified) Start: 03/11/2024 Class: eRX For: Subacute cough, SOB (shortness of breath) Last ordered: 1 year ago (01/27/2023) by JENNIFER Luna Last refill: 01/27/2023 Rx #: [id number]|1|0|1 Pulmonology & Allergy: Beta Agonists and Anti-muscarinics Railwc7303/11/2024 01:23 PM Protocol Details Manual Review: If patient not on inhaled steroid and using bronchodilator more than twice weekly for more than 4 weeks or is having a night cough patient should be seen immediately. Manual Review: Staff refilling for allergy - 1 month supply only unless insurance requires a 3 month supply, then 3 month supply approved. Valid encounter within last 12 months To be filled at: [facility] #[id number] [place] [address] [address] [facility] OF [address] Recent Visits Date Type Provider Dept 02/22/24 Office Visit Jada Bill FNP [facility] 09/16/23 Office Visit Jada Bill FNP [facility] 06/02/23 Office Visit Jada Bill FREIGHT BOOKER [facility] 04/03/23 Office Visit Jada Bill FNP [facility] 01/27/23 Office Visit Jada Bill FNP [facility] Showing recent visits within past 540 days with a meds authorizing provider and meeting all other requirements Future Appointments Date Type Provider Dept 05/23/24 Appointment Jada Bill FNP [facility] Showing future appointments within next 150 days with a meds authorizing provider and meeting all other requirements Ynes Tyler LVN [facility] 2024-03-04 13:48:41 VIJI 08/20/23 NOV 03/07/24 Suha Meneses RN [facility] 2024-02-23 09:25:29 Patient has been notified of test results/ recommendations per Landy Elias Gave verbal understanding [facility] 2024-02-23 09:18:55 Reported lab results and patients daughter wanted to know if she can take omega 3 OTC. Please advise Urine micro mildly elevated A1C improving . Continue on glipizide 10mg will add 2.5mg in addition for total of 12.5mg Triglycerides are elevated. Recommend avoiding/limiting starchy foods (potatoes/pastas/cereals), sugary drinks, baked goods, etoh, high fat meats- ham, sausage, caruso; butter/margarine Increase foods in omega 3 by eating fish or fish oil, and increase fiber Add first oil. Continue statin T [facility] 2024-02-23 08:15:02 Continue glipizide 10mg bid but add 2.5 mg in am dose RTO in 3 months T [facility] 2024-02-22 16:30:00 Images from the original note were not included. Venipuncture collection performed by clean technique on the right forearm(s). Total of 1 attempts were made. Slight pressure and a bandage/dressing were applied to the site(s). The patient experienced no complications. The following specimens were processed according to instructions and sent to [facility] laboratories per lab order on 02/22/2024 : LT BLUE 1 SST RED 1 LAV PPT DK GREEN (LiHep) DK GREEN (SodH) FAUSTIN DK BLUE (K2) DK BLUE (S) ACD Blood Culture NIPT/NTD Patient has been identified by and name and was provided with cup, antiseptic towelette, and clean catch instructions. 1 urine specimen(s) sent. 1 Unpreserved Urine Culture Aptima tube Other urine T [facility] 2024-02-10 08:45:00 Images from the original note were not included. Venipuncture collection performed by clean technique on the left anticubitus. Total of 1 attempts were made. Slight pressure and a bandage/dressing were applied to the site(s). The patient experienced no complications. The following specimens were processed according to instructions and sent to [facility] laboratories per lab order on 02/10/2024 : LT BLUE SST 1 RED LAV 2 PPT DK GREEN (LiHep) DK GREEN (SodH) FAUSTIN DK BLUE (K2) DK BLUE (S) ACD Blood Culture NIPT/NTD Patient has been identified by and name and was provided with cup, antiseptic towelette, and clean catch instructions. 2 urine specimen(s) sent. Unpreserved 2 Urine Culture Aptima tube Other urine [facility] 2023-12-24 09:30:00 Images from the original note were not included. Only bmp per nurse request. Venipuncture collection performed by clean technique on the left anticubitus. Total of 1 attempts were made. Slight pressure and a bandage/dressing were applied to the site(s). The patient experienced no complications. The following specimens were processed according to instructions and sent to [facility] laboratories per lab order on 12/24/2023 : LT BLUE SST 1RST RED LAV PPT DK GREEN (LiHep) DK GREEN (SodH) FAUSTIN DK BLUE (K2) DK BLUE (S) ACD Blood Culture NIPT/NTD [facility] 2023-12-15 15:12:21 Orders for CPAP Supplies submitted via fax to [facility]. All forms scanned into chart along with fax confirmation. If any questions on status order please contact [facility] #[phone] [facility] Erma Head MA [facility] 2023-12-08 15:49:32 Patient needing BMP rechecked before next prolia injection on 12/18 due to previous elevated. [facility] 2023-11-30 07:34:55 Last Refilled: famotidine 20 mg lfzzpg9609/27/2024----Sig: Take 1 tablet by mouth 2 (two) times daily.Sent to pharmacy as: famotidine 20 mg tablet (PEPCID AC)Class: eRXRoute: OralOrder: [id number]/Time Signed: 11/27/2023 15:00E-Prescribing Status: Receipt confirmed by pharmacy (11/27/2023 3:00 PM MANAGEMENT PROFESSIONAL) Notes: duplicate request. Sent 11/27/23 Recent Visits Date Type Provider Dept 09/16/23 Office Visit Jada Bill, FREIGHT BOOKER [facility] 06/02/23 Office Visit Jada Bill, FREIGHT BOOKER [facility] 04/03/23 Office Visit Jada Bill FREIGHT BOOKER [facility] 01/27/23 Office Visit Jada Bill, FREIGHT BOOKER [facility] 07/18/22 Office Visit Jada Bill FREIGHT BOOKER [facility] Showing recent visits within past 540 days with a meds authorizing provider and meeting all other requirements Future Appointments Date Type Provider Dept 12/21/23 Appointment Jada Bill FNP [facility] 01/18/24 Appointment Jada Bill FREIGHT BOOKER [facility] Showing future appointments within next 150 days with a meds authorizing provider and meeting all other requirements GEMENT PROFESSIONAL Andria Steward RN [facility] 2023-11-27 12:11:03 Images from the original note were not included. Requested Renewals famotidine 20 mg tablet Sig: Take 1 tablet by mouth 2 (two) times daily. Disp: 60 tablet Refills: 1 Start: 11/27/2023 Class: eRX For: Gastroesophageal reflux disease without esophagitis Last ordered: 3 months ago (08/05/2023) by JENNIFER Luna Gastroenterology: Antiulcer - H2 Antagonists [id number]/27/2023 11:13 AM Protocol Details Cr in normal range and within 360 days Valid encounter within last 12 months eGFR in normal range and within 360 days To be filled at: [facility] #[id number] - [place] [address] [address] AT [facility] OF [address] Recent Visits Date Type Provider Dept 09/16/23 Office Visit Jada Bill, FREIGHT BOOKER [facility] 06/02/23 Office Visit Jada Bill FREIGHT BOOKER [facility] 04/03/23 Office Visit Jada Bill FNP [facility] 01/27/23 Office Visit Jada Bill FNP [facility] 07/18/22 Office Visit Jada Bill FNP [facility] Showing recent visits within past 540 days with a meds authorizing provider and meeting all other requirements Future Appointments Date Type Provider Dept 12/21/23 Appointment Jada Bill FNP [facility] 01/18/24 Appointment Jada Bill FNP [facility] Showing future appointments within next 150 days with a meds authorizing provider and meeting all other requirements ISELA Tyler LVN [facility] 2023-11-24 10:24:42 Requested Prescriptions Pending Prescriptions Disp Refills IRBESARTAN 150 mg tablet [Pharmacy Med Name: IRBESARTAN 150MG TABLETS] 90 tablet Sig: TAKE 1 TABLET BY MOUTH AT BEDTIME There is no refill protocol information for this order VIJI: 08/20/23 NOV: 02/15/24 BP stable. Refilled per protocol. ERMA ALLAN RN 11/24/2023 10:25 AM GEMENT PROFESSIONAL Erma Allan RN [facility] 2023-11-20 08:45:00 Images from the original note were not included. Venipuncture collection performed by clean technique on the right anticubitus. Total of 1 attempts were made. Slight pressure and a bandage/dressing were applied to the site(s). The patient experienced no complications. The following specimens were processed according to instructions and sent to [facility] laboratories per lab order on 11/20/2023 : LT BLUE SST 1 RED LAV 1 PPT DK GREEN (LiHep) DK GREEN (SodH) FAUSTIN DK BLUE (K2) DK BLUE (S) ACD Blood Culture NIPT/NTD CYCLOSPORIN PEAK 2 HR and VITAMIN D, 25-OH only per patient [facility] 2023-11-19 14:29:01 68 y/0 kidney txp date 05/02/2010 Calcium has been 9.2 - 9. Since January 2023 should she stop calcitriol? Last PTH -- 59.7 - 26.3 11/09 through 06/04/[address] Gita Mcnally Yes stop it and check vit D level next labs Discussed with patient's daughter. Questions were encouraged and answered. Patient expressed understanding and acceptance. [facility] 2023-08-05 15:02:01 Formatting of this n ote is different from the original. Last Refilled: FAMOTIDINE 20 mg tablet 60 tablet 0 01/30/2023 No Sig: TAKE 1 TABLET BY MOUTH TWICE DAILY Sent to pharmacy as: famotidine 20 mg tablet (PEPCID AC) Class: eRX Order: [id number] Date/Time Signed: 01/30/2023 16:23 E-Prescribing Status: Receipt confirmed by pharmacy (01/30/2023 4:23 PM [facility]) Recent Visits Date Type Provider Dept 06/02/23 Office Visit Jada Bill FNP [facility] 04/03/23 Office Visit Jada Bill FNP [facility] 01/27/23 Office Visit Jada Bill FNP [facility] 07/18/22 Office Visit Jada Bill FNP [facility] 03/25/22 Office Visit Jada Bill FNP [facility] Showing recent visits within past 540 days with a meds authorizing provider and meeting all other requirements Future Appointments Date Type Provider Dept 09/02/23 Appointment Jada Bill FNP [facility] Showing future appointments within next 150 days with a meds authorizing provider and meeting all other requirements [facility] 2023-08-05 14:48:47 Images from the original note were not included. PLEASE REVIEW famotidine 20 mg tablet Possible duplicate: Hover to review recent actions on this medication Sig: Take 1 tablet by mouth 2 (two) times daily. Disp: 60 tablet Refills: 0 Start: 08/04/2023 Class: eRX For: Gastroesophageal reflux disease without esophagitis Last ordered: 6 months ago (01/30/2023) by JENNIFER Luna To be filled at: [facility] #[id number] [place] [address] [address] [facility] [address] Recent Visits Date Type Provider Dept 06/02/23 Office Visit Jada Bill FNP [facility] 04/03/23 Office Visit Jada Bill FNP [facility] 02/18/23 [facility] [place] [facility] 01/27/23 Office Visit Jada Bill FNP [facility] 08/20/22 Office Visit Niels Mcnally MD [facility] 07/18/22 Office Visit Jada Bill FNP [facility] 03/25/22 Office Visit Jada Bill FNP [facility] 02/27/22 Office Visit [facility] [place] [facility] Showing recent visits within past 540 days with a meds authorizing provider and meeting all other requirements Future Appointments Date Type Provider Dept 08/20/23 Appointment Aryan Price MD [facility] 09/02/23 Appointment Jada Bill FNP [facility] Showing future appointments within next 150 days with a meds authorizing provider and meeting all other requirements [facility] 2023-08-05 14:45:43 Images from the original note were not included. .PLEASE REVIEW famotidine 20 mg tablet Possible duplicate: Hover to review recent actions on this medication Sig: Take 1 tablet by mouth 2 (two) times daily. Disp: 60 tablet Refills: 0 Start: 08/04/2023 Class: eRX For: Gastroesophageal reflux disease without esophagitis Last ordered: 6 months ago (01/30/2023) by JENNIFER Luna To be filled at: [facility] #[id number] [place] [address] [address] [facility] [address] Recent Visits Date Type Provider Dept 06/02/23 Office Visit Jada Bill FNP [facility] 04/03/23 Office Visit Jada Bill FNP [facility] 02/18/23 Office [facility] [place] [facility] 01/27/23 Office Visit Jada Bill FNP [facility] 08/20/22 Office Visit N[facility] [place] [facility] 07/18/22 Office Visit Jada Bill FNP [facility] 03/25/22 Office Visit Jada Bill FNP [facility] 02/27/22 Office Visit [facility] Showing recent visits within past 540 days with a meds authorizing provider and meeting all other requirements Future Appointments Date Type Provider Dept 08/20/23 Appointment [facility] [place] [facility] 09/02/23 Appointment Jada Bill FNP [facility] Showing future appointments within next 150 days with a meds authorizing provider and meeting all other requirements [facility] 2023-08-03 13:09:06 Formatting of this n ote is different from the original. Requested Prescriptions Pending Prescriptions Disp Refills famotidine 20 mg tablet 60 tablet 0 Sig: Take 1 tablet by mouth 2 (two) times daily. VIJI: 02/18/23 NOV: 08/20/23 Last refilled on 06/19/23 with 5 refills. Refill requested too early per guidelines. ERMA ALLAN RN 08/03/2023 1:12 PM [facility] 2023-07-03 17:47:24 Formatting of this n ote might be different from the original. Patient notified and verbalized understanding [facility] 2023-07-03 17:16:32 Formatting of this n ote might be different from the original. I send over an antibiotics for you to start [facility] 2023-06-10 11:15:00 Formatting of this n ote is different from the original. Images from the original note were not included. Per Nina from client services CYA 2 should be sent as whole blood refrigerated.Grecia Duncan 06/10/2023 9:30 AM Venipuncture collection performed by clean technique on the right anticubitus. Total of 1 attempts were made. Slight pressure and a bandage/dressing were applied to the site(s). The patient experienced no complications. The following specimens were processed according to instructions and sent to [facility] laboratories per lab order on today: LT BLUE SST RED LAV 1 WB PPT DK GREEN (LiHep) DK GREEN (SodH) FAUSTIN DK BLUE (K2) DK BLUE (S) ACD Blood Culture NIPT/NTD [facility] 2020-02-22 16:33:32 Patient's need/request has been addressed in a subsequent encounter. Nenita Garcia MA [facility]
[2025-08-30 04:14] LABS: Sqamous Epithelial <5 /HPF (None Seen); Urine Culture Reflex Order REFLEXED; Urine Microscopic Reflex YN ORDER UMIC
[2025-08-30] MEDS ORDERED: CEFTRIAXONE 1000 MG/VIAL ONE (04:48)
[2025-08-30] MEDS ORDERED: WATER FOR INJ,STERILE 10 ML ONE (04:48)
--- NOTE | 2025-08-30 04:52 | ER ---
Nurse's Notes [facility] Name: Juhi Aguilar Age: 70 yrs Sex: Female : 1955 Arrival Date: 08/30/2025 Time: 02:35 Bed 7 Private MD: Diagnosis: UTI/ Urinary tract infection, site not specified;Acute cystitis Presentation: 08/30 03:38 Chief complaint: Patient states: PT PRESENTS TO THE ED WITH COMPLAINTS OF URINARY kd3 FREQUENCY AND BURNING WITH URINATION THAT STARTED YESTERDAY MORNING. PT HAS A HISTORY OF KIDNEY TRANSPLANT. Coronavirus screen: Vaccine status: Patient reports receiving the 2nd dose of the covid vaccine. Ebola Screen: No symptoms or risks identified at this time. Initial Sepsis Screen: Does the patient meet any 2 criteria? No. Patient's initial sepsis screen is negative. Does the patient have a suspected source of infection? No. Patient's initial sepsis screen is negative. Risk Assessment: Do you want to hurt yourself or someone else? Patient reports no desire to harm self or others. Onset of symptoms was August 29, 2025. 03:38 Method Of Arrival: Ambulatory kd3 03:38 Acuity: LUIGI 4 kd3 Triage Assessment: 03:41 General: Appears in no apparent distress. Behavior is calm, cooperative. Pain: kd3 Complains of pain in meatus. Historical: - Allergies: 03:41 Adhesives; kd3 03:41 Iodine; kd3 03:41 Codeine; kd3 03:41 sirolimus; kd3 03:41 Ciprofloxacin; kd3 - Immunization history:: Adult Immunizations up to date. - Infectious Disease History:: Denies. - Social history:: Smoking status: Patient denies any tobacco usage or history of. - Family history:: not pertinent. Screenin:05 [facility] ED Fall Risk Assessment (Adult) History of falling in the last 3 months, kd3 including since admission No falls in past 3 months (0 pts) Confusion or Disorientation No (0 pts) Intoxicated or Sedated No (0 pts) Impaired Gait No (0 pts) Mobility Assist Device Used Yes (1 pt) Altered Elimination No (0 pt) Score/Fall Risk Level 0 - 2 = Low Risk Maintained a safe environment. Abuse screen: Denies threats or abuse. Denies injuries from another. Nutritional screening: No deficits noted. Tuberculosis screening: No symptoms or risk factors identified. Assessment: 05:08 General: Appears in no apparent distress. Behavior is calm, cooperative. Neuro: Level kd3 of Consciousness is awake, alert, obeys commands, Oriented to person, place, time, situation. Cardiovascular: Capillary refill < 3 seconds Patient's skin is warm and dry. Vital Signs: 03:38 BP 180 / 85; Pulse 70; Resp 18; Temp 99.1(O); Pulse Ox 98% on R/A; Weight 63.5 kg; kd3 Height 4 ft. 11 in. ; 05:07 BP 168 / 71; Pulse 71; Resp 19; Pulse Ox 98% on R/A; kd3 03:38 Body Mass Index 28.28 (63.50 kg, 149.86 cm) kd3 Danial Coma Score: 21:06 Eye Response: spontaneous(4). Motor Response: obeys commands(6). Verbal Response: sp4 oriented(5). Total: 15. ED Course: 02:38 Patient arrived in ED. gm2 02:50 Sav Mata MD is Attending Physician. sp4 03:33 Saranya Winchester RN is Primary Nurse. kd3 03:41 Triage completed. kd3 03:41 Arm band placed on right wrist. kd3 03:42 UA Rfx Kendall Cult if indicated Sent. kd3 05:06 Patient has correct armband on for positive identification. Provided Education on: kd3 ANTIBIOTICS . 05:06 No provider procedures requiring assistance completed. Patient did not have IV access kd3 during this emergency room visit. Administered Medications: 04:54 Drug: Rocephin (cefTRIAXone) IM 1 grams IM once Route: IM; Site: right gluteus; kb4 05:07 Follow up: Response: No adverse reaction kd3 Medication: 05:07 VIS not applicable for this client. kd3 Outcome: 04:51 Discharge ordered by . sp4 05:06 Discharged to home ambulatory, kd3 05:06 Condition: stable 05:06 Discharge instructions given to patient, Instructed on discharge instructions, follow up and referral plans. Demonstrated understanding of instructions, follow-up care, medications, Prescriptions given X 1, 05:08 Patient left the ED. kd3 Signatures: Saranya Winchester RN RN kd3 Sav Mata MD MD sp4 Lynn Rosenthal gm2 Radha Mattson, RN RN kb4
--- NOTE | 2025-08-30 04:52 | EDPHYS ---
Physician Documentation [facility] Name: Juhi Aguilar Age: 70 yrs Sex: Female : 1955 Arrival Date: 08/30/2025 Time: 02:35 Bed 7 Private MD: ED Physician Sav Mata HPI: 08/30 03:16 This 70 yrs old Female presents to ER via Unassigned with complaints of Pain sp4 With Urination. 21:06 Patient with history of end-stage renal disease and history of renal transplant sp4 presents with a particular problem of burning with urination.. Historical: - Allergies: 03:41 Adhesives; kd3 03:41 Iodine; kd3 03:41 Codeine; kd3 03:41 sirolimus; kd3 03:41 Ciprofloxacin; kd3 - Immunization history:: Adult Immunizations up to date. - Infectious Disease History:: Denies. - Social history:: Smoking status: Patient denies any tobacco usage or history of. - Family history:: not pertinent. ROS: 21:06 Constitutional: Negative for fever, chills, and weight loss, positive for dysuria sp4 21:06 All other systems are negative, Exam: 21:06 Constitutional: This is a well developed, well nourished patient who is awake, alert, sp4 and in no acute distress. Head/Face: Normocephalic, atraumatic. Eyes: Pupils equal round and reactive to light, extra-ocular motions intact. Lids and lashes normal. Conjunctiva and sclera are not injected. Cornea within normal limits. Periorbital areas with no swelling, redness, or edema. ENT: Nares patent. No nasal discharge, no septal abnormalities noted. Tympanic membranes are normal and external auditory canals are clear. Oropharynx with no redness, swelling, or masses, exudates, or evidence of obstruction, uvula midline. Mucous membranes moist. Neck: Trachea midline, no thyromegaly or masses palpated, and no cervical lymphadenopathy. Supple, full range of motion without nuchal rigidity, or vertebral point tenderness. Chest/axilla: Normal chest wall appearance and motion. Nontender with no deformity. No lesions are appreciated. Cardiovascular: Regular rate and rhythm with a normal S1 and S2. No gallops, murmurs, or rubs. No pulse deficits. Respiratory: Lungs have equal breath sounds bilaterally, clear to auscultation and percussion. No rales, rhonchi or wheezes noted. No increased work of breathing, no retractions or nasal flaring. Abdomen/GI: Soft, with normal bowel sounds. No distension or tympany. No guarding or rebound. No evidence of tenderness throughout. Back: No spinal tenderness. No costovertebral tenderness. Skin: Warm, dry with normal turgor. Normal color with no rashes, no lesions, and no evidence of cellulitis. MS/ Extremity: Pulses equal, no cyanosis. Neurovascular intact. Full, normal range of motion. Neuro: Awake and alert, GCS 15, oriented to person, place, time, and situation. Cranial nerves II-XII grossly intact. Motor strength 5/5 in all extremities. Sensory grossly intact. Psych: Awake, alert, with orientation to person, place and time. Behavior, mood, and affect are within normal limits Vital Signs: 03:38 BP 180 / 85; Pulse 70; Resp 18; Temp 99.1(O); Pulse Ox 98% on R/A; Weight 63.5 kg; kd3 Height 4 ft. 11 in. ; 05:07 BP 168 / 71; Pulse 71; Resp 19; Pulse Ox 98% on R/A; kd3 03:38 Body Mass Index 28.28 (63.50 kg, 149.86 cm) kd3 Danial Coma Score: 21:06 Eye Response: spontaneous(4). Motor Response: obeys commands(6). Verbal Response: sp4 oriented(5). Total: 15. MDM: 02:49 Medical Screening Exam initiated sp4 21:07 Differential diagnosis: leti infection, urinary tract infection, vaginosis. Data sp4 reviewed: vital signs, nurses notes, lab test result(s), urinalysis. Consideration of Admission/Observation Escalation of care including admission/observation considered. ED course: Urinalysis positive for UTI. Patient was given IM Rocephin. Prescribe cefdinir for 10 days.. 08/30 03:16 Order name: UA Rfx Kendall Cult if indicated; Complete Time: 04:35 sp4 08/30 04:22 Order name: Urine Culture EDMS Administered Medications: 04:54 Drug: Rocephin (cefTRIAXone) IM 1 grams IM once Route: IM; Site: right gluteus; kb4 05:07 Follow up: Response: No adverse reaction kd3 Disposition Summary: 08/30/25 04:51 Discharge Ordered Notes: Location: Home sp4 Problem: new sp4 Symptoms: have improved sp4 Condition: Stable sp4 Diagnosis - UTI/ Urinary tract infection, site not specified sp4 - Acute cystitis sp4 Followup: sp4 - With: Private Physician - When: 7 - 10 days - Reason: Recheck today's complaints Discharge Instructions: - Discharge Summary Sheet sp4 - Urinary Tract Infection, Adult sp4 Forms: - Patient Portal Instructions sp4 Prescriptions: - cefdinir 300 mg Oral capsule - take 1 capsule ORAL route 2 times per day for 10 days; 20 capsule; Refills: 0, sp4 Product Selection Permitted Signatures: Dispatcher [employer] Saranya Sellers, RN RN kd3 Sav Mata MD MD sp4 Radha Mattson RN RN kb4
[2025-08-30 05:56] VITALS: TEMP 98.8
[2025-08-30 06:05] VITALS: O2SAT 100
[2025-08-30 06:09] VITALS: BP 146/71
== END 2025-08-30 05:08 | disposition home or self-care (01) ==
LOC: ER 02:35
DX: N30.00 Acute cystitis without hematuria (principal)
CPT/HCPCS: 87088; 81001; 87086; 87077; 87186; 96372; 99284; J0696